=== PATIENT | female | born 1995 | race Caucasian/White ===

== ENCOUNTER 2024-04-21 16:08 | Outpatient (OUT) | payer OTHER, SELFPAY ==
[2024-04-21 16:41] LABS: BOX Test Date Sent UNITY; BOX Test Reference Lab UNITY
[2024-04-21 16:49] LABS: Basophils Absolute Auto 0.1 10^3/uL (0.0-0.1); Basophils Percent Auto 0.5 % (0.2-2.0); Eosinophils Absolute Auto 0.2 10^3/uL (0.0-0.7); Eosinophils Percent Auto 1.4 % (0.9-7.0); Hematocrit 38.9 % (36.0-48.0); Hemoglobin 13.6 g/dL (12.0-16.0); Immature Granulocytes Abs Auto 0.04 10^3/uL (0.00-0.03); Immature Granulocytes Pct Auto 0.3 % (0.0-0.5); Lymphocytes Absolute Auto 2.5 10^3/uL (1.2-3.8); Lymphocytes Percent Auto 21.6 % (20.5-60.0); Mean Corpuscular Hemoglobin 32.6 pg (26.7-34.0); Mean Corpuscular Volume 93.3 fL (81.0-99.0); Mean Platelet Volume 10.3 fL (9.5-13.5); Monocytes Absolute Auto 0.7 10^3/uL (0.3-0.8); Monocytes Percent Auto 5.9 % (1.7-12.0); Neutrophils Absolute Auto 8.2 10^3/uL (1.4-6.5); Neutrophils Percent Auto 70.3 % (43.0-75.0); Platelet Count 273 10^3/uL (150-450); Red Blood Count 4.17 10^6/uL (4.20-5.40); Red Cell Distribution Width 12.5 % (11.0-15.0); White Blood Count 11.7 10^3/uL (4.0-11.0)
[2024-04-21 17:02] LABS: Amphetamine Screen Urine NEGATIVE (NEGATIVE); Barbiturates Screen Urine NEGATIVE (NEGATIVE); Benzodiazepines Screen Urine NEGATIVE (NEGATIVE); Buprenorphine Screen Urine NEGATIVE (NEGATIVE); Cannabinoid Screen Urine NEGATIVE (NEGATIVE); Cocaine Screen Urine NEGATIVE (NEGATIVE); Methadone Screen Urine NEGATIVE (NEGATIVE); Methamphetamines Screen Urine NEGATIVE (NEGATIVE); Opiate Screen Urine NEGATIVE (NEGATIVE); Oxycodone Screen Urine NEGATIVE (NEGATIVE); Phencyclidine Screen Urine NEGATIVE (NEGATIVE); Tricyclic Antidepressant Urine NEGATIVE (NEGATIVE)
[2024-04-21 17:04] LABS: Estimated Average Glucose 108 mg/dL; Glycohemoglobin A1C 5.4 % (4.5-6.2)
[2024-04-23 08:07] LABS: HBsAg Screen Negative (Negative); HIV Ab/p24 Ag Screen Non Reactive (Non Reactive); Rapid Plasma Reagin, Quant Non Reactive titer (NonRea<1:1)
[2024-04-23 09:07] LABS: HCV Ab Non Reactive (Non Reactive)
== END 2024-04-21 16:09 | disposition home or self-care (01) ==
LOC: LAB 16:12
PROVIDERS: PCP Internal Medicine; Visit Provider Obstetrics & Gynecology
DX: Z34.01 Encounter for supervision of normal first pregnancy, first trimester (principal); Z36.0 Encounter for antenatal screening for chromosomal anomalies; N92.0 Excessive and frequent menstruation with regular cycle; N92.6 Irregular menstruation, unspecified
CPT/HCPCS: 36415; 80307; 83036; 85025; 86592; 86762; 86803; 86850; 86900; 86901; 87086; 87340; 87389

== ENCOUNTER 2024-05-23 20:39 | Outpatient (OUT) | payer OTHER, SELFPAY ==
--- NOTE | 2024-05-23 20:41 | US_ITS ---
[address] [address] Patient Name: BETTY ROJAS MRN: [id number]:[id number] date: 1995 Sex: F Assigned Patient Location: Current Patient Location: [place] Accession/Order Number: [id number] Exam Date: 05/23/2024 23:10 Report Date: 05/23/2024 23:13 At the request of: NEGAR GONZALEZ DO Procedure: US OB cervical length Cervical length ultrasound. Reason for exam: Spotting in . COMPARISON: None. TECHNIQUE: Transvaginal imaging of the cervix was obtained. FINDINGS: The cervix measures 3.47 cm without evidence of funneling. Complete placenta previa is noted. heart rate is noted at 145 bpm. US/US OB cervical length IMPRESSION: Cervix measures 3.47 cm without evidence of funneling. Complete placenta previa. Impression dictated by: Navjot Harmon Jr., D.O.05/23/2024 11:13 PM Dictation [facility] Electron[facility] authenticated by: [id number] Y Date: 05/23/2024 23:13
== END 2024-05-23 20:40 | disposition home or self-care (01) ==
LOC: US 20:39
PROVIDERS: PCP Internal Medicine; Visit Provider Obstetrics & Gynecology
DX: O26.892 Other specified pregnancy related conditions, second trimester (principal); Z3A.14 14 weeks gestation of pregnancy
CPT/HCPCS: 76817

== ENCOUNTER 2024-06-19 10:56 | Outpatient (OUT) | payer OTHER, SELFPAY ==
--- OUTSIDE RECORDS SUMMARY | 2024-06-19 11:14 | XMS_ITS | CCD ---
Author Organization [facility] Care Team Providers Care Frame Trimmer Name Role Phone LITO VELAZQUEZ Admitting Unavailable LITO VELAZQUEZ Attending Unavailable Josefina Kay Unavailable Robles Goldsmith DO Unavailable [phone] TANTIBHEDFEDE MARSHALL Referring Unav ailLito Li MD Primary Care Provider JAILENE HOWARD Referring Unavailable TANTIBHEDHYANGKAMARA, JULMARY Referring Unav ailable TANTIBHEDLIZAUL, JULCINDYUT Referring Unav ailable Lito Velazquez MD Primary Care Provider RUBY CANO Attending Unavailable LITO VELAZQUEZ Primary Care Unavailable GABRIEL BLACKWELL Attending Unavailable LITO VELAZQUEZ Primary Care Unavailable GALLAGHER, MIRTA Attending Unavailable FINA LIZAMA Referring Unavailable MINDZORA, ORTEGA Referring Unavailable VANESSA VO Attending Unavailable MINDZORAORTEGA Referring Unavailable MINDZORA, ORTEGA Referring Unavailable MINDZORA, ORTEGA Referring Unavailable TANTIBHEDHYANGKUL, JULMARY Attending Unav ailable MINDZORA, ORTEGA Attending Unavailable SELF Referring Unavailable TANTIBHEDHYANGKUL, JULMARY Attending Unav ailable MINDZORAORTEGA Referring Unavailable MINDZORA, ORTEGA Attending Unavailable MINDZORA, ORTEGA Referring Unavailable MINDZORA, ORTEGA Attending Unavailable MINDZORA, ORTEGA Referring Unavailable ATTARANDESHAWN Attending Unavailable ATTARAN, DESHAWN Referring Unavailable MINDZORA, ORTEGA Referring Unavailable GALLAGHER, MIRTA Referring Unavailable TANTIBHEDHYANGKUL, JULCINDYUT Attending Unav МАРИЯ Perez Attending Unavailable FINA LIZAMA Referring Unavailable MINDZORA, ORTEGA Attending Unavailable MINDZORA, ORTEGA Referring Unavailable MINDZORA, ORTEGA Referring Unavailable TANTIBHEDHYANGKUL, FEDE Referring Unav ailable TANTIBHEDHYANGKUL, FEDE Referring Unav ailable MINDKALI, ORTEGA Attending Unavailable ENG, ANNAMARIE Referring Unavailable ASPEN, МАРИЯ Referring Unavailable GALLAGHER, MIRTA Referring Unavailable ASPEN, МАРИЯ Referring Unavailable SARAVANAN AHUMADA Attending Unavailable ANDREW FERRER Attending Unavailable CESAR, LITO Ribeiro Attending Unavailable CESAR, LITO Ribeiro Referring Unavailable CESAR, LITO Ribeiro Referring Unavailable ROBLES GOLDSMITH Attending Unavailable Medications Current Medications Medication Drug Class(es) Dates Sig (Normalized) Sig (Original) cholecalciferol 0.05 mg oral tablet (12 sources) Vitamin D take 2 tablets by mouth in the morning cholecalciferol (Vitamin D-3) 50 MCG (1999 UT) tablet Take 2 tablets by mouth in the morning. Active fluticasone propionate 0.05 mg/actuat metered dose nasal spray (1 source) Corticosteroid Start: 03-08-2024 End: 06-06-2024 take 2 spray(s) nasal route once daily fluticasone (Flonase) 50 mcg/actuation nasal spray Indications: Chronic allergic rhinitis Administer 2 sprays into each nostril once daily. 48 mL 3 03/08/2024 06/06/2024 Active ammonium lactate 120 mg/ml topical cream (3 sources) Start: 05-23-2024 End: 05-23-2025 ammonium lactate (Amlactin) 12 % cream Indications: Xerosis cutis , Fissure in skin of both feet Apply topically Daily 140 g 3 05/23/2024 05/23/2025 Active 24 hr metFORMIN hydrochloride 500 mg extended release oral tablet (20 sources) Biguanide Start: 01-04-2023 End: 02-17-2024 take 3 tablets by mouth once daily at breakfast, then take 1 tablet by mouth once daily, then take 3 tablets by mouth once daily metFORMIN ER (GLUCOPHAGE XR) 500 mg 24 hr tablet Take 3 tablets by mouth daily with breakfast. Start with 1 tablet daily and slowly increase the dose up to 3 tablets daily. 90 tablet 11 02/17/2024 Active End: 03-27-2024 take 2 tablets by mouth once daily metFORMIN (Glucophage) 500 MG tablet Take 2 tablets by mouth Daily 03/27/2024 Discontinued Comment on above: Take 3 tablets by mo uth daily with breakfast. Start with 1 tablet daily and slowly increase the dose up to 3 tablets daily. PNV no.95/ferrous fum/folic ac ( ORAL) (20 sources) take 1 tablet by mouth once daily before mealtime PNV no.95/ferrous fum/folic ac ( ORAL) Take 1 tablet by mouth once daily. Active take 1 tablet by alverto th once daily before mealtime PNV no.95/ferrous fum/folic ac ( ORAL) Take 1 tablet by mouth once daily. 0 Active Comment on above: Take 1 tablet by alverto th once daily. MV-Min-Fe Fum-FA-DHA ( 1 PO) (10 sources) MV-Min- Fe Fum-FA-DHA ( 1 PO) Take by mouth Active progesterone 200 mg oral capsule (20 sources) Progesterone Start: 10-26-2023 End: 03-27-2024 progesterone micronized (PROMETRIUM) 200 mg capsule Use 1 capsule vaginally two times a day. 180 capsule 10/26/2023 Active Completed/Discontinued Medications Medication Drug Class(es) Dates Sig (Normalized) Sig (Original) chorionic gonadotropin 67487 unt/ml injectable solution (13 sources) Gonadotropin Start: 02-17-2024 End: 03-17-2024 inject 70999 [IU] by subcutaneous injection once chorionic gonadotropin (PREGNYL) 10,000 unit solr 10,000 Units as directed. Mix vials as directed per nursing in office. Administer subcutaneous. 1 Each 02/17/2024 03/17/2024 Discontinued () Start: 02-17-2024 chorionic gona dotropin (Pregnyl) 10,000 unit injection 10,000 Units. 02/17/2024 Active Start: 12-13-2023 End: 12-13-2023 Choriogonadotropin Pam,HumR ec (OVIDREL) 250 mcg/0.5 mL syrg Indications: Female infertility Inject 250 mcg subcutaneously one time only for 1 dose. 0.5 mL 1 12/13/2023 12/13/2023 Active Start: 11-15-2023 End: 03-27-2024 choriogonadotropin pam (Rohan drel) 250 MCG/0.5ML injection 11/15/2023 03/27/2024 Discontinued Start: 10-12-2023 End: 10-12-2023 Choriogonadotropin Pam,HumR ec (OVIDREL) 250 mcg/0.5 mL syrg Inject 250 mcg subcutaneously one time only for 1 dose. 0.5 mL 1 10/12/2023 10/12/2023 Active iv contrast (will be provided with radiology test) (1 source) Start: 06-16-2023 End: 06-16-2023 inject 1 dose intravenously once, then inject 1 dose intravenously once iv contrast (will be provided with radiology test) Inject 1 Each intravenously one time only for [address] Neck W IVCON No IV access, insert saline lock prior to the sedation, infusion, injection for imaging exam. Discontinue saline lock post exam. If Pt. has a central line or IVAD, may access for administration according to line specific nursing protocol. Once exam is complete flush line and de-access according to line specific nursing protocol in the CT contrast administration guidelines link. 1 Each 0 06/16/2023 06/16/2023 Comment on above: Inject 1 Each intravenously one time onl y for [address] Neck W IVCON No IV access, insert saline lock prior to the sedation, infusion, injection for imaging exam. Discontinue saline lock post exam. If Pt. has a central line or IVAD, may access for administration according to line specific nursing protocol. Once exam is complete flush line and de-access according to line specific nursing protocol in the CT contrast administration guidelines link. letrozole 2.5 mg oral tablet (20 sources) Aromatase Inhibitor Start: 02-28-2024 End: 03-13-2024 letrozole (FEMARA) 2.5 mg tablet Take 3 tablets by mouth once daily. Menstrual cycle day 3-7 15 tablet 2 02/28/2024 03/13/2024 Discontinued () Start: 03-30-2023 End: 02-28-2024 letrozole (FEMARA) 2.5 mg ta blet Take 2 tablets by mouth once daily for 5 days. Menstrual cycle day 3-7 10 tablet 2 02/15/2024 02/28/2024 Discontinued Start: 01-04-2023 End: 03-27-2024 take 1 tablet by mouth every other day letrozole (Femara) 2.5 MG chemo tablet Take 2.5 mg by mouth every other day. 01/04/2023 03/27/2024 Discontinued Start: 01-04-2023 letrozole (FEM STEWART) 2.5 mg tablet Take 1 tablet by mouth once daily for 5 days. Menstrual cycle day 3-7 5 tablet 3 01/04/2023 Active Comment on above: Take 1 tablet by alverto th once daily for 5 days. Menstrual cycle day 3-7 Take 2 tablets by mo uth once daily. Take day 3-7 of her cycle medroxyPROGESTERone acetate 10 mg oral tablet (20 sources) Progestin Start: 3 End: 4 medroxyPROGESTERone (Provera) 10 MG tablet 09/09/2023 03/27/2024 Discontinued Comment on above: Take 1 tablet by alverto th once daily for 10 days. Problems Active Problems Problem Classification Problem Date Documented Da te Episodic/Chronic Administrative/social admission (1 source) Treatment plan given; Translations: [Counseling, unspecified] 10-20-2023 Episodic Anxiety disorders (20 sources) Generalized anxiety disorder; Translations: [Generalized anxiety disorder] Onset: 3 12-29-2022 Chronic Asthma (1 source) Asthma; Translations: [Unspecified asthma, uncomplicated] Chronic Disorders of teeth and jaw (3 sources) Temporomandibular joint disorder; Translations: [Unspecified temporomandibular joint disorder, unspecified side] Onset: 4 03-08-2024 Episodic Female infertility (12 sources) Female infertility; Translations: [Female infertility, unspecified] Onset: 4 09-10-2023 Chronic Inflammatory diseases of female pelvic organs (1 source) Bacterial vaginosis; Translations: [Acute vaginitis] 02-15-2024 Episodic Malaise and fatigue (20 sources) Chronic fatigue syndrome; Translations: [Chronic fatigue syndrome] Onset: 3 Resolved: 3 12-29-2022 Chronic Menstrual disorders (20 sources) Menorrhagia; Translations: [Excessive and frequent menstruation with regular cycle] Onset: 3 12-29-2022 Chronic Mycoses (2 sources) Onychomycosis; Translations: [Tinea unguium] 05-23-2024 Episodic Nutritional deficiencies (12 sources) Vitamin D deficiency; Translations: [Vitamin D deficiency, unspecified] Onset: 3 01-12-2023 Chronic Open wounds of extremities (1 source) Puncture wound without foreign body of unspecified finger without damage to nail, initial encounter Episodic Other complications of (4 sources) Supervision of with history of infertility, first trimester; Translations: [Supervision of high-risk with history of infertility] Onset: 5 03-13-2024 Episodic Other complications of (2 sources) Spotting per vagina in ; Translations: [Spotting complicating , unspecified trimester] 05-22-2024 Episodic Other ear and sense organ disorders (1 source) Bilateral earache; Translations: [Otalgia, bilateral] 03-08-2024 Episodic Other ear and sense organ disorders (2 sources) Tinnitus, bilateral; Translations: [Tinnitus, bilateral] Onset: 4 Episodic Other ear and sense organ disorders (4 sources) Otalgia, bilateral; Translations: [Otalgia, bilateral] Onset: 4 Episodic Other endocrine disorders (20 sources) Polycystic ovary; Translations: [Polycystic ovarian syndrome] Onset: 3 12-29-2022 Chronic Other endocrine disorders (4 sources) Polycystic ovary syndrome; Translations: [Polycystic ovarian syndrome] 02-08-2023 Chronic Other endocrine disorders (1 source) Polycystic ovarian syndrome; Translations: [PCOS (polycystic ovarian syndrome)] Onset: 4 Chronic Other gastrointestinal disorders (1 source) Finding of abdominopelvic segment of trunk; Translations: [Intra-abdominal and pelvic swelling, mass and lump, unspecified site] 06-16-2023 Episodic Other liver diseases (12 sources) Steatosis of liver; Translations: [Fatty (change of) liver, not elsewhere classified] Onset: 4 07-13-2023 Chronic Other nervous system disorders (1 source) Chronic pain; Translations: [Other chronic pain] Chronic Other nutritional; endocrine; and metabolic disorders (20 sources) Obesity caused by energy imbalance; Translations: [Other obesity due to excess calories] Onset: 3 12-29-2022 Chronic Other nutritional; endocrine; and metabolic disorders (20 sources) Body mass index 40+ - severely obese; Translations: [Morbid (severe) obesity due to excess calories] Onset: 4 08-17-2023 Chronic Other nutritional; endocrine; and metabolic disorders (1 source) Morbid (severe) obesity due to excess calories; Translations: [Obesity, Class III, BMI 40-49.9 (morbid obesity) (HCC)] Onset: 4 Chronic Other and delivery including normal (7 sources) test positive; Translations: [Encounter for test, result positive] 03-16-2024 Episodic Other screening for suspected conditions (not mental disorders or infectious disease) (2 sources) Cancer cervix screening status; Translations: [Encounter for screening for malignant neoplasm of cervix] Onset: 4 02-15-2024 Episodic Other skin disorders (2 sources) Dystrophia unguium; Translations: [Nail dystrophy] 05-23-2024 Episodic Other skin disorders (2 sources) Asteatosis cutis; Translations: [Xerosis cutis] 05-23-2024 Episodic Other skin disorders (2 sources) Fissure in skin of bilateral feet; Translations: [Changes in skin texture] 05-23-2024 Episodic Other upper respiratory disease (20 sources) Seasonal allergy; Translations: [Other seasonal allergic rhinitis] Onset: 3 12-29-2022 Chronic Other upper respiratory disease (1 source) Allergic rhinitis; Translations: [Allergic rhinitis, unspecified] 03-08-2024 Chronic Other upper respiratory disease (2 sources) Allergic rhinitis, unspecified; Translations: [Allergic rhinitis, unspecified] Onset: 4 Chronic Other upper respiratory infections (3 sources) Posterior rhinorrhea; Translations: [Postnasal drip] Onset: 4 03-08-2024 Episodic Residual codes; unclassified (1 source) Family history of cancer; Translations: [Family history of malignant neoplasm, unspecified] 05-17-2023 Episodic Residual codes; unclassified (1 source) Family history of gene mutation; Translations: [Family history of carrier of genetic disease] 05-17-2023 Episodic Residual codes; unclassified (1 source) Family history of breast cancer; Translations: [Family history of malignant neoplasm of breast] 05-18-2023 Episodic Residual codes; unclassified (1 source) Family history of prostate cancer; Translations: [Family history of malignant neoplasm of prostate] 05-18-2023 Episodic Residual codes; unclassified (1 source) Gestation period, 9 weeks; Translations: [9 weeks gestation of ] 04-21-2024 Episodic Residual codes; unclassified (1 source) Gestation period, 13 weeks; Translations: [13 weeks gestation of ] 05-15-2024 Episodic Residual codes; unclassified (2 sources) Gestation period, 14 weeks; Translations: [14 weeks gestation of ] 05-22-2024 Episodic Unclassified (1 source) Infertility Onset: 4 Unclassified (7 sources) OB Reminders Onset: 5 04-30-2024 Urinary tract infections (1 source) Urinary tract infectious disease; Translations: [Urinary tract infection, site not specified] 05-15-2024 Episodic Viral infection (20 sources) Genital herpes simplex; Translations: [Herpesviral infection of urogenital system, unspecified] Onset: 3 12-29-2022 Chronic Past or Other Problems Problem Classification Problem Date Documented Da te Episodic/Chronic Contraceptive and procreative management (20 sources) Patient encounter status; Translations: [Encounter for fertility testing] Onset: 4 02-04-2023 Episodic Esophageal disorders (20 sources) Gastroesophageal reflux disease; Translations: [Gastro-esophageal reflux disease without esophagitis] Onset: 3 Resolved: 4 12-29-2022 Chronic Lymphadenitis (2 sources) Localized enlarged lymph nodes; Translations: [Localized enlarged lymph nodes] Onset: 4 06-16-2023 Episodic Other gastrointestinal disorders (1 source) Intra-abdominal and pelvic swelling, mass and lump, unspecified site; Translations: [Intra-abdominal and pelvic swelling, mass and lump, unspecified site] Onset: 4 Episodic Residual codes; unclassified (20 sources) Genetic mutation; Translations: [Genetic susceptibility to other disease] Onset: 4 06-16-2023 Episodic Residual codes; unclassified (1 source) Family history of malignant neoplasm of breast; Translations: [Family history of breast cancer] Onset: 4 Episodic Residual codes; unclassified (1 source) Family history of malignant neoplasm of prostate; Translations: [Family history of prostate cancer] Onset: 4 Episodic Residual codes; unclassified (1 source) Genetic susceptibility to other disease; 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 Ordering Physician: Saravanan Ahumada D.O. Date of Service: 05/23/24 Procedure(s): US OB cervical length Accession Number(s): [id number] cc: Saravanan Ahumada D.O.; LITO VELAZQUEZ [place] [address] Patient Name: EMILEE RIVAS MRN: [facility]:[id number] date: 1995 Sex: F Assigned Patient Location: Current Patient Location: US Accession/Order Number: [id number] Exam Date: 05/23/2024 23:10 Report Date: 05/23/2024 23:13 At the request of: SARAVANAN AHUMADA DO Procedure: US OB cervical length Cervical length ultrasound. Reason for exam: Spotting in . COMPARISON: None. TECHNIQUE: Transvaginal imaging of the cervix was obtained. FINDINGS: The cervix measures 3.47 cm without evidence of funneling. Complete placenta previa is noted. heart rate is noted at 145 bpm. US/US OB cervical length IMPRESSION: Cervix measures 3.47 cm without evidence of funneling. Complete placenta previa. Impression dictated by: Navjot Harmon Jr., D.O.05/23/2024 11:13 PM Dictation Location: [place] [address] Electronically authenticated by: [id number] Y Date: 05/23/2024 23:13 Dictated By: Navjot Harmon M.D. Signed By: 05/23/242314 DD/ 12 TD/TT: Pot Fluxer: [facility] Radiology, Radiologist, - 05/24/2024 [place] [address] Ultrasound Report Signed Patient: EMILEE RIVAS MR#: [id number] : 1995 Acct:[id number] Age/Sex: 29 / F ADM Date: 05/23/24 Loc: US Attending Dr: Saravanan Ahumada D.O. Ordering Physician: Saravanan Ahumada D.O. Date of Service: 05/23/24 Procedure(s): US OB cervical length Accession Number(s): [id number] cc: Saravanan Ahumada D.O.; LITO VELAZQUEZ [place] [address] Patient Name: EMILEE RIVAS MRN: [facility]:[id number] date: 1995 Sex: F Assigned Patient Location: US Current Patient Location: US Accession/Order Number: [id number] Exam Date: 05/23/2024 23:10 Report Date: 05/23/2024 23:13 At the request of: SARAVANAN AHUMADA DO Procedure: US OB cervical length Cervical length ultrasound. Reason for exam: Spotting in . COMPARISON: None. TECHNIQUE: Transvaginal imaging of the cervix was obtained. FINDINGS: The cervix measures 3.47 cm without evidence of funneling. Complete placenta previa is noted. heart rate is noted at 145 bpm. US/US OB cervical length IMPRESSION: Cervix measures 3.47 cm without evidence of funneling. Complete placenta previa. Impression dictated by: Navjot Harmon Jr., D.O.05/23/2024 11:13 PM Dictation Location: [place] [address] Electronically authenticated by: [id number] Y Date: 05/23/2024 23:13 Dictated By: Navjot Harmon M.D. Signed By: 05/23/242314 DD/ 12 TD/TT: Pot Fluxer: [facility] Radiology Study observation (narrative) [facility] US OB CERVICAL LENGTHOrdered By: Radiologist Radiology on 05-23-2024 [facility] Work Phone: Urinalysis macro (dipstick) panel (U)on 05-22-2024 Bilirubin, UA Negative Negative - 4(70) +++ mg/dL [facility] Blood, UA Negative Negative - 50 Jorge Luis/mcL [facility] Clarity, UA Clear [facility] Color, UA Yellow [facility] Glucose, UA Negative Negative - 1999(110) ++++ mg/dL [facility] Interpretation and review of laboratory results Normal [facility] Ketones, UA Negative Negative - 160(16) ++++ mg/dL [facility] Leukocytes, UA Negative Negative - 500+++ Flori/mcL [facility] Nitrite, UA Negative Negative - Positive [facility] pH, UA 7 5 - 9 [facility] Protein, UA Negative Negative - 1999(20) ++++ mg/dL [facility] Spec Grav, UA 1.015 1 - 1.03 [facility] Urobilinogen, UA 0.2 0.2 - 12 mg/dL [facility] Urinalysis macro (dipstick) panel (U)on 05-15-2024 Bilirubin, UA Negative Negative - 4(70) +++ mg/dL [facility] Blood, UA Negative Negative - 50 Jorge Luis/mcL [facility] Clarity, UA Clear [facility] Color, UA Yellow [facility] Glucose, UA Negative Negative - 1999(110) ++++ mg/dL [facility] Interpretation and review of laboratory results Normal [facility] Ketones, UA Negative Negative - 160(16) ++++ mg/dL [facility] Leukocytes, UA Negative Negative - 500+++ Flori/mcL [facility] Nitrite, UA Negative Negative - Positive [facility] pH, UA 6 5 - 9 [facility] Protein, UA Negative Negative - 1999(20) ++++ mg/dL [facility] Spec Grav, UA 1.01 1 - 1.03 [facility] Urobilinogen, UA 0.2 0.2 - 12 mg/dL [facility] BOX TESTon 04-21-2024 BOX TEST SENT OUT 04/21/24 [facility] BOX1 UNITY [facility] BOX2 [facility] HCG ( test) Ql (U)o n 04-21-2024 Interpretation and review of laboratory results Abnormal [facility] Preg Test, Ur Positive Negative [facility] US OB TRANSVAGINALon 025 US OB TRANSVAGINAL TITLE OF EXAM: OB Ultrasound: REASON FOR EXAM: Evaluate for size/dates. COMPARISON: None TECHNIQUE: Grayscale and M-mode Doppler imaging is performed. FINDINGS: Measurements: heart rate: 168 bpm Sac: 4.0 cm CRL: 2.2 cm GA for sonogram: 8.9 wk (08.1-09.6) Cervix Length: 3.7 cm KERA: 11/25/2024 Anatomy Observed: Gestational Sac: Visualized Yolk Sac: Visualized Pole: Visualized Cardiac Activity: Visualized 168 bpm Uterus: Normal Uterine Position: Retroverted, retroflexed Right Ovary: 3.7 x 3.8 x 2.2 cm Volume: 10.3 cc Normal Left Ovary: 4.9 x 2.7 x 2.9 cm Volume: 19.9 cc Corpus luteal Cervical Length: 3.7 cm IMPRESSION: Single viable intrauterine gestation with an estimated ultrasound age of 9 weeks 0 days. Dictated and transcribed 04/21/24/dpd This report has been electronically signed and approved by the interpreting radiologist. Normal Not Available Comment on above: Order Comment: US OB TRANSVAGINAL Patient's last menstrual period was 02/13/2024 (approximate). Urinalysis macro (dipstick) panel (U)on 04-21-2024 Bilirubin, UA Negative Negative - 4(70) +++ mg/dL [facility] Blood, UA Negative Negative - 50 Jorge Luis/mcL [facility] Clarity, UA Clear [facility] Color, UA Yellow [facility] Glucose, UA Negative Negative - 2000(110) ++++ mg/dL [facility] Interpretation and review of laboratory results Normal [facility] Ketones, UA Negative Negative - 160(16) ++++ mg/dL [facility] Leukocytes, UA Negative Negative - 500+++ Flori/mcL [facility] Nitrite, UA Negative Negative - Positive [facility] pH, UA 7 5 - 9 [facility] Protein, UA Negative Negative - 2000(20) ++++ mg/dL [facility] Spec Grav, UA 1.02 1 - 1.03 [facility] Urobilinogen, UA 0.2 0.2 - 12 mg/dL [facility] CNNURSEon 2024 CNNURSE Nurse Visit (REIAV) LISSA RIVAS ([id number]) 1995 F Date Time Provider Department 04/03/24 11:10 AM US TECH [facility] REJ REIAV During your visit today, we recorded the following information about you: Ortega Morrissey APRN.VENEER JOINTER HELPER 2024 4:38 PM Signed Lissa Rivas here today for a scan. This is her 1st scan. 0 0 0 History of ectopic: No History of SAB: No History of pelvic/abdominal surgeries: No LMP 02/12, fertility medications used this cycle: let 5mg, date of LH surge: LH + 03/03, TI Latest Ref Rng 01/04/2023 ABO A Rh(D) Negative Antibody Screen Negative Type+Scr Expiration 01/07/2023 23:59 Historical Ab Scr Status NEGATIVE Rubella IgG, Qual Positive Negative ! Varicella Zoster IgG, Qual Positive Positive hCG levels: Latest Ref Rng 03/13/2024 03/15/2024 03/17/2024 hCG Quantitative, Blood <5.0 mIU/mL 21.9 (H) 87.6 (H) 190.7 (H) Dating LMP on: 02/13/2024 GA by LMP 7 w + 1 d KERA by LMP: 11/19/2024 Ultrasound examination on: 2024 GA by U/S based upon: CRL GA by U/S 6 w + 3 d KERA by U/S: 11/24/2024 Assigned: based on ultrasound (CRL), selected on 2024 Assigned GA 6 w + 3 d Assigned KERA: 11/24/2024 FHR: 119 Plan Move on to OB Ortega Morrissey APRN.VENEER JOINTER HELPER 2024 4:34 PM Referring Provider: ORTEGA MORRISSEY [[id number]] Allergies As of Date: 2024 (No Known Allergies) Date Reviewed: 02/23/2024 Reviewed by: Paula Hester RN - Fully Assessed Visit Diagnosis:Supervision of with history of infertility, first trimester [O09.01] Order(s):OBSTETRIC ULTRASOUND [facility] [[id number]] Order #: [id number]. #:[id number] IEWPOINTQty: 1 Prescriptions as of 2024 - metFORMIN ER (GLUCOPHAGE XR) 500 mg 24 hr tablet Take 3 tablets by mouth daily with breakfast. Start with 1 tablet daily and slowly increase the dose up to 3 tablets daily. - progesterone micronized (PROMETRIUM) 200 mg capsule Use 1 capsule vaginally two times a day. - PNV no.95/ferrous fum/folic ac ( ORAL) Take 1 tablet by mouth once daily. Problem List As Of Date 2024 Noted Resolved Seasonal allergies [J30.2] 10/05/2022 Diagnosed: 12/29/2022 Polycystic ovaries [E28.2] 10/05/2022 Diagnosed: 12/29/2022 Obesity due to excess calories [E66.09] 10/05/2022 Diagnosed: 12/29/2022 Menorrhagia [N92.0] 10/05/2022 Diagnosed: 12/29/2022 GERD (gastroesophageal reflux disease) [K21.9] 10/05/2022 08/17/2023 Diagnosed: 12/29/2022 Genital herpes simplex [A60.00] 10/05/2022 Diagnosed: 12/29/2022 Generalized anxiety disorder [F41.1] 10/05/2022 Diagnosed: 12/29/2022 Chronic fatigue syndrome [G93.32] 10/05/2022 Diagnosed: 12/29/2022 Fertility testing [Z31.41] 07/29/2023 Obesity, Class III, BMI 40-49.9 (morbid obesity*08/17/2023 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 - An intrauterine gestational sac with a yolk sac and pole is present. - [place] rump length measurement is NOT consistent with the dating provided. Therefore, dating is now based on today?s crown rump length. The final EDC is 11/24/2024 - heart rate is within normal limits. Recommendations Refer to OB Method Transvaginal ultrasound examination Bruce . Number of embryos: 1 Dating LMP on: 02/13/2024 GA by LMP 7 w + 1 d KERA by LMP: 11/19/2024 Ultrasound examination on: 2024 GA by U/S based upon: CRL GA by U/S 6 w + 3 d KERA by U/S: 11/24/2024 Assigned: based on ultrasound (CRL), selected on 2024 Assigned GA 6 w + 3 d Assigned KERA: 11/24/2024 Assessment Gestational sac: visualized Location: intrauterine Yolk sac: visualized YS 2.8 mm <1% [place] Embryo: visualized CRL 5.9 mm 6w 3d 40% [place] Cardiac activity: present FHR 119 bpm Maternal Structures Uterus / Cervix Uterus: Visualized Uterus position: retroverted Uterus length 91 mm Uterus width 55 mm Uterus height 49 mm Uterus Vol 127.3 cm Cervix: Visualized Ovaries / Tubes / Adnexa Rt ovary: Visualized Rt ovary morphology: premenopausal normal follicular Rt ovary D1 40 mm Rt ovary D2 28 mm Rt ovary D3 20 mm Rt ovary Vol 12.1 cm Lt ovary: Visualized Lt ovary morphology: premenopausal normal follicular Lt ovary D1 53 mm Lt ovary D2 33 mm Lt ovary D3 36 mm Lt ovary Vol 32.5 cm Lt ovarian corpus luteum: hemorrhagic Lt ovarian corpus luteum D1 20.0 mm Lt ovarian corpus luteum D2 18.0 mm Lt ovarian corpus luteum D3 20.0 mm Lt ovarian cyst(s): Cysts identified Lt ovarian cyst D1 14 mm Lt ovarian cyst D2 16 mm Lt ovarian cyst D3 16 mm Lt ovarian cyst mean 15.3 mm Lt ovarian cyst vol 1.877 cm Lt ovarian cyst findings: Unilocular simple cyst Cul de Sac / Bladder / Kidneys / Other Cul de Sac: Visualized Performed By: Paula Peterson RDMS Read By: Jailene Howard M.D. MATERNAL MEDICINE [facility] Radiology Study observation (narrative) Theresa torres [facility] CONSULT PROGon 03-20-2024 CONSULT PROG HNO ID: [id number] Author: FEDE HAIRSTON MD Service: ? Author Type: Physician Type: Consult Progress Note Filed: 03/20/2024 08:24 Note Text: Date of Consult: 02/17/2024 Lissa Rivas is a 28 year old female presenting with the following history: HISTORY OF PRESENT ILLNESS: Lissa Rivas is a 28 year old female with Pt is here for follow up. No changes in history. She thinks she might have reaction from Ovidrel. August 18, 2023: Follow up PCOS, anovulatory infertility. S/p 3 cycles of Letrozole, cycle 34-42 days. Normal HSG. Partner had SA - told it was normal. Saw cancer genetic team 03/2023. Previous encounter on 04/07/2023: Pt is here for follow up. 1. PCOS - not respond to letrozole 2.5 mg. Dosed increase to 5 mg recently and she will get the prog done again on CD 21. 2. Elevated LFT - work up are all negative. Her PCP will repeat her LFT again in a few months. 3. Rubella non-immune. Patient aware. She will get the vaccine at the local pharmacy. She aware that she should not TTC for 30 days after taking the injection. 4. She has an appointment with cancer genetic team soon. 5. 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 Initial consult note on 01/04/2023: TTC January 2022. Has not used ocp since teenager. Was seen med endo for PCOS and placed on metformin. She self discontinue metformin last year and period never return. Using condoms prior Hx of PCOS diagnosed in 2019 through ultrasound and c/o abnormal hair growth, cycles usually q 3 months but has not had a cycle since Dec 2021 Has been spotting for 40+ days Using elle to track cycles, tried OPK for a few months but never has gotten a positive Treated for Chlamydia at age 16 healthy, non-smoker; no established pregnancies. Irregular period, hirsutism, ultrasound showed PCO appearing ovaries. Obstetric History T0 L0 SAB0 IAB0 Ectopic0 Multiple0 Live Births0 Fertility Evaluations and Treatments: Eval Checklist Results Date Comments HSG Normal 07/29/2023 Hysteroscopy Laparoscopy OPK (Ovulation Predictor Kit) Ovarian [place] AMH 10.91 High 01/04/2023 Saline Ultrasound Semen Analysis Normal 08/10/2023 Ultrasound Abnormal polycystic ovaries, otherwise normal 02/08/2023 Other (See comments) MENSTRUAL HISTORY: Menarche Age: 12 Length of Cycle: 34-42 days with Letrozole Irregular Days: 4-5 Menstrual Flow: Menstrual Symptoms: Patient's last menstrual period was 02/13/2024 (exact date). 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 Obesity due to excess calories PCOS (polycystic ovarian syndrome) Seasonal allergies PAST SURGICAL HISTORY Procedure Laterality Date EYE SURGERY HX 03/2020 [facility] FAMILY HISTORY Problem Relation Age of Onset Hypertension Mother Asthma Father Diabetes Father Heart disease Father Stroke Father Kidney Disease Father Arrhythmia Father Atrial fibrillation COPD Father Hypertension Father Hyperlipidemia Father Arrhythmia Half-sister Atrial fibrillation Breast Cancer Maternal Grandmother 40 - 49 Arthritis Paternal Grandmother Stroke Paternal Grandmother COPD Paternal Grandmother Arrhythmia Paternal Grandmother Atrial fibrillation Heart disease Paternal Grandmother Diabetes Paternal Grandmother Prostate Cancer Maternal Uncle 40 - 49 metastatic Lung Cancer Maternal Uncle 45 - 49 Breast Cancer Maternal great-grandmother Breast Cancer Maternal Aunt 45 ETHNICITY: White Assessment and Plan Lissa Rivas is a 28 year old female with PCOS here for follow up. Plan: PCOS lab. Restart metformin. Bar Use hCG trigger instead of ovidrel due to possible side effects. Also, she might need hCG during IVF. Possible increase letrozole to 7.5 pending this IUI cycle. Follow up in Apr. This visit was conducted as a virtual visit via zoom. I have communicated my name and active licensure. The patient's identity and physical location were verified at the time of this visit. Either the patient or their legal direct marketing representative has been informed of the risks and benefits of -- and alternatives to -- treatment through a remote evaluation and consents to proceed with the evaluation remotely. I spent a total of 30 minutes on the date of the service which included preparing to see the patient, [id number] patient care, counseling and educating the patient/family/caregi deborah, ordering medications, tests, or procedures, communicating results to the patient/family/caregi deborah, and care coordination (not separately reported). MD Kim Branch MD Normal [facility] B-HCG SerPl-aCncon 4 HCG.beta subunit Qn 190.7 m[IU]/mL High <5.0 C [facility] Comment on above: Order Comment: Speci men Type: BLOOD SPECIMENOrdering Facility: [facility] Address: [address] [place] [address] Result Comment: LUCA TITATIVE HCG NORMAL RANGES Weeks of Gestation (Weeks Since LMP) 3 Weeks (5.8-71.2 mIU/mL) 4 Weeks (9.5-750 mIU/mL) 5 Weeks (217-7138 mIU/mL) 6 Weeks (158-84088 mIU/mL) 7 Weeks (3697-804120 mIU/mL) 8 Weeks (81375-406657 mIU/mL) 9 Weeks (36307-973572 mIU/mL) 10 Weeks (09268-995819 mIU/mL) 12 Weeks (83246-923711 mIU/mL) Referenced to 4th IS of [facility] Performed By: #### 2 1198-7 ####[facility]CL[facility] [id number] [facility] [id number] [place] [address] [place] B-HCG SerPl-aCncon 4 HCG.beta subunit Qn 87.6 m[IU]/mL High <5.0 [facility] Comment on above: Order Comment: Speci men Type: BLOOD SPECIMENOrdering Facility: [facility] Address: [address] [place] [address] Result Comment: LUCA TITATIVE HCG NORMAL RANGES Weeks of Gestation (Weeks Since LMP) 3 Weeks (5.8-71.2 mIU/mL) 4 Weeks (9.5-750 mIU/mL) 5 Weeks (217-7138 mIU/mL) 6 Weeks (158-31742 mIU/mL) 7 Weeks (3697-148512 mIU/mL) 8 Weeks (02418-637806 mIU/mL) 9 Weeks (25169-191250 mIU/mL) 10 Weeks (70266-489343 mIU/mL) 12 Weeks (80251-142902 mIU/mL) Referenced to 4th IS of [facility] Performed By: #### 2 1198-7 ####[facility] LABIA [id number] [place] [address] [place] B-HCG SerPl-aCncon 4 HCG.beta subunit Qn 21.9 m[IU]/mL High <5.0 Cl [facility] Comment on above: Order Comment: Speci men Type: BLOOD SPECIMENOrdering Facility: [facility] Address: [address] [place] [address] Result Comment: LUCA TITATIVE HCG NORMAL RANGES Weeks of Gestation (Weeks Since LMP) 3 Weeks (5.8-71.2 mIU/mL) 4 Weeks (9.5-750 mIU/mL) 5 Weeks (217-7138 mIU/mL) 6 Weeks (158-64566 mIU/mL) 7 Weeks (3697-837789 mIU/mL) 8 Weeks (23736-249339 mIU/mL) 9 Weeks (82763-978006 mIU/mL) 10 Weeks (93975-843653 mIU/mL) 12 Weeks (63068-530635 mIU/mL) Referenced to 4th IS of [facility] Performed By: #### 2 1198-7 ####[facility] LABIA [id number] [address] [place] Alexandra 03-13-2024 JORDANN Telephone (REIBD) LISSA RIVAS ([id number]) 1995 F Date Time Provider Department 03/13/24 FEDE HAIRSTON During your visit today, we recorded the following information about you: Ayanna Wise 03/13/2024 11:56 AM Signed Patient states she skipped this month and has +hpt, please follow up with patient. Ortega Morrissey APRN.VENEER JOINTER HELPER 03/13/2024 1:37 PM Signed Patient calls with positive urine test. 0 0 0 History of ectopic: No History of SAB: No History of pelvic/abdominal surgeries: No LMP 02/12, fertility medications used this cycle: let 5mg, date of LH surge: unsure, TI Latest Ref Rng 01/04/2023 ABO A Rh(D) Negative Antibody Screen Negative Type+Scr Expiration 01/07/2023 23:59 Historical Ab Scr Status NEGATIVE Rubella IgG, Qual Positive Negative ! Varicella Zoster IgG, Qual Positive Positive Current medications: Current Outpatient Medications Medication Sig letrozole (FEMARA) 2.5 mg tablet Take 3 tablets by mouth once daily. Menstrual cycle day 3-7 metFORMIN ER (GLUCOPHAGE XR) 500 mg 24 hr tablet Take 3 tablets by mouth daily with breakfast. Start with 1 tablet daily and slowly increase the dose up to 3 tablets daily. chorionic gonadotropin (PREGNYL) 10,000 unit solr 10,000 Units as directed. Mix vials as directed per nursing in office. Administer subcutaneous. Syringe with Needle, Disp, (SYRINGE 3CC/20GX1 ) 3 mL 20 gauge x 1 To be used to mix, draw up and inject HCG trigger Needle, Disp, 27 G (BD DISPOSABLE NEEDLES) 27 gauge x 1/2 ndle To be used to inject HCG trigger progesterone micronized (PROMETRIUM) 200 mg capsule Use 1 capsule vaginally two times a day. PNV no.95/ferrous fum/folic ac ( ORAL) Take 1 tablet by mouth once daily. No current facility-administered medications for this visit. Advised normal symptoms of and s/s of need for follow up. Labs ordered: HCG x2 FYI Dr. Bill Morrissey APRN.VENEER JOINTER HELPER March 13, 2024 1:37 PM Allergies As of Date: 03/13/2024 (No Known Allergies) Date Reviewed: 02/23/2024 Reviewed by: Paula Hester RN - Fully Assessed Reason for Visit: +hpt today/lmp 02/12 skipped treatment this month [Other] Primary Visit Diagnosis:Supervision of with history of infertility, first trimester [O09.01] Other Visit Diagnosis: examination or test, unconfirmed [Z32.00] Order(s):HCG QUANTITATIVE [SQHCGQT] Order #: [id number] STANDING Prescriptions as of 03/13/2024 - metFORMIN ER (GLUCOPHAGE XR) 500 mg 24 hr tablet Take 3 tablets by mouth daily with breakfast. Start with 1 tablet daily and slowly increase the dose up to 3 tablets daily. - chorionic gonadotropin (PREGNYL) 10,000 unit solr 10,000 Units as directed. Mix vials as directed per nursing in office. Administer subcutaneous. - Syringe with Needle, Disp, (SYRINGE 3CC/20GX1 ) 3 mL 20 gauge x 1 To be used to mix, draw up and inject HCG trigger - Needle, Disp, 27 G (BD DISPOSABLE NEEDLES) 27 gauge x 1/2 ndle To be used to inject HCG trigger - progesterone micronized (PROMETRIUM) 200 mg capsule Use 1 capsule vaginally two times a day. - PNV no.95/ferrous fum/folic ac ( ORAL) Take 1 tablet by mouth once daily. Problem List As Of Date 03/13/2024 Noted Resolved Seasonal allergies [J30.2] 10/05/2022 Diagnosed: 12/29/2022 Polycystic ovaries [E28.2] 10/05/2022 Diagnosed: 12/29/2022 Obesity due to excess calories [E66.09] 10/05/2022 Diagnosed: 12/29/2022 Menorrhagia [N92.0] 10/05/2022 Diagnosed: 12/29/2022 GERD (gastroesophageal reflux disease) [K21.9] 10/05/2022 08/17/2023 Diagnosed: 12/29/2022 Genital herpes simplex [A60.00] 10/05/2022 Diagnosed: 12/29/2022 Generalized anxiety disorder [F41.1] 10/05/2022 Diagnosed: 12/29/2022 Chronic fatigue syndrome [G93.32] 10/05/2022 Diagnosed: 12/29/2022 Fertility testing [Z31.41] 07/29/2023 Obesity, Class III, BMI 40-49.9 (morbid obesity*08/17/2023 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 Menstrual cycle day 3-7 Encounter Status:Closed by ORTEGA MORRISSEY on 03/13/24 Normal [facility] Progest SerPl-mCncon 024 Progesterone [Mass/Vol] 17.8 ng/mL Normal See comment [facility] Comment on above: Order Comment: Speci men Type: BLOOD SPECIMENOrdering Facility: [facility] Address: [address] [place] [address] Result Comment: Mens trual Cycle Progesterone Reference Ranges: Follicular: <1.0 ng/mL Ovulation: <12.1 ng/mL Luteal: 1.8 to 23.9 ng/mL. Progesterone Reference Ranges vary by gestational period: First Trimester: 11.0 to 44.3 ng/mL Second Trimester: 25.4 to 83.3 ng/mL Third Trimester: 58.7 to 214 ng/mL Post menopausal Progesterone: <0.5 ng/mL Reference: 1. Progesterone (Progesterone III) [package insert V 1.0 Cam[place]onian]. [facility], [place], [place]. December 2014. Performed By: #### 2 839-9 ####[facility] LABCLIA [id number] [address] [place] Alexandra 02-28-2024 CNPN Telephone (REIBD) LISSA RIVAS ([id number]) 1995 F Date Time Provider Department 02/28/24 FEDE HAIRSTON During your visit today, we recorded the following information about you: Joanna Garces 02/28/2024 8:23 AM Signed Pt is not financially clear yet should she still schedule it after she pays Ortega Morrissey APRN.JORDAN 02/28/2024 11:54 AM Signed Spoke with Thao, Plan to continue with OPK at home and timed intercourse. Will not proceed with IUI this cycle. Would like to confirm ovulation with progesterone if she gets a +OPK. Otherwise, will plan for increased letrozole dose with next cycle/monitoring and IUI. The following approved medication requests have been transmitted electronically. Requested Prescriptions Signed Prescriptions Disp Refills letrozole (FEMARA) 2.5 mg tablet 15 tablet 2 Sig: Take 3 tablets by mouth once daily. Menstrual cycle day 3-7 Authorizing Provider: ORTEGA MORRISSEY APRN.CNP February 28, 2024 11:54 AM Allergies As of Date: 02/28/2024 (No Known Allergies) Date Reviewed: 02/23/2024 Reviewed by: Paula Hester, RN - Fully Assessed Reason for Visit: ortega pt is not cleared for us should she still have it do [Other] Primary Visit Diagnosis:Female infertility [N97.9] Order(s):PROGESTERONE [SQPROG] Order #: [id number] FUTURE letrozole (FEMARA) 2.5 mg tabletTake 3 tablets by mouth once daily. Menstrual cycle day 3-7Disp: 15 tabletRfl: 2 Prescriptions as of 02/28/2024 - letrozole (FEMARA) 2.5 mg tablet Take 3 tablets by mouth once daily. Menstrual cycle day 3-7 - metFORMIN ER (GLUCOPHAGE XR) 500 mg 24 hr tablet Take 3 tablets by mouth daily with breakfast. Start with 1 tablet daily and slowly increase the dose up to 3 tablets daily. - chorionic gonadotropin (PREGNYL) 10,000 unit solr 10,000 Units as directed. Mix vials as directed per nursing in office. Administer subcutaneous. - Syringe with Needle, Disp, (SYRINGE 3CC/20GX1 ) 3 mL 20 gauge x 1 To be used to mix, draw up and inject HCG trigger - Needle, Disp, 27 G (BD DISPOSABLE NEEDLES) 27 gauge x 1/2 ndle To be used to inject HCG trigger - progesterone micronized (PROMETRIUM) 200 mg capsule Use 1 capsule vaginally two times a day. - PNV no.95/ferrous fum/folic ac ( ORAL) Take 1 tablet by mouth once daily. Problem List As Of Date 02/28/2024 Noted Resolved Seasonal allergies [J30.2] 10/05/2022 Diagnosed: 12/29/2022 Polycystic ovaries [E28.2] 10/05/2022 Diagnosed: 12/29/2022 Obesity due to excess calories [E66.09] 10/05/2022 Diagnosed: 12/29/2022 Menorrhagia [N92.0] 10/05/2022 Diagnosed: 12/29/2022 GERD (gastroesophageal reflux disease) [K21.9] 10/05/2022 08/17/2023 Diagnosed: 12/29/2022 Genital herpes simplex [A60.00] 10/05/2022 Diagnosed: 12/29/2022 Generalized anxiety disorder [F41.1] 10/05/2022 Diagnosed: 12/29/2022 Chronic fatigue syndrome [G93.32] 10/05/2022 Diagnosed: 12/29/2022 Fertility testing [Z31.41] 07/29/2023 Obesity, Class III, BMI 40-49.9 (morbid obesity*08/17/2023 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 Menstrual cycle day 3-7 Medications Discontinued During This Encounter Prescriptions - letrozole (FEMARA) 2.5 mg tablet (Discontinued) Take 2 tablets by mouth once daily for 5 days. Menstrual cycle day 3-7 Encounter Status:Closed by ORTEGA MORRISSEY on 02/28/24 Normal [facility] 25(OH)D3 Yolandal-Avni 2023 25-hydroxyvitamin D3 [Mass/Vol] 49.3 ng/mL Normal 31.0-80.0 [facility] Comment on above: Order Comment: Speci men Type: BLOOD SPECIMEN [facility] Address: [address] [place] [address] Result Comment: Clas sification of 25 [place] Vitamin D status: Deficiency/Insufficiency: < or = 30 ng/ml. Sufficiency/Optimal Levels: 31-80 ng/mL Toxicity: > 100 ng/mL. Test performed by chemiluminescent immunoassay. Performed By: #### 1 989-3 #### [facility] CLIA [id number] [address] [place] [address] [place] [address] [place] 25-hydroxyvitamin D3 [Mass/V ol]on 02-23-2024 Interpretation and review of laboratory results Normal [facility] The reference range interval was based on an analysis of samples from healthy adults and may not pertain to children from 0-18 years old. [facility] CBC panel Auto (Bld)on 02-22 Erythrocyte distribution width (RBC) [Ratio] 12.4 % 11.5 - 15.0 % [facility] Hematocrit (Bld) [Volume fraction] 40.6 % 36.0 - 46.0 % [facility] Hemoglobin (Bld) [Mass/Vol] 13.5 g/dL 11.5 - 15.5 g/dL [facility] Interpretation and review of laboratory results Normal [facility] MCH (RBC) [Entitic mass] 31.1 pg 26.0 - 34.0 pg [facility] MCHC (RBC) [Mass/Vol] 33.3 g/dL 30.5 - 36.0 g/dL [facility] MCV (RBC) [Entitic vol] 93.5 fL 80.0 - 100.0 fL [facility] Nucleated RBC (Bld) [#/Vol] NINF [facility] Platelet mean volume (Bld) [Entitic vol] 10.6 fL 9.0 - 12.7 fL [facility] Platelets (Bld) [#/Vol] 261 10*3/uL [facility] RBC (Bld) [#/Vol] 4.34 10*6/uL 3.90 - 5.2 0 m/uL [facility] WBC (Bld) [#/Vol] 8.81 10*3/uL [facility] Erythrocyte distribution width (RBC) [Ratio] 12.4 % Normal 11.5-15.0 [facility] Comment on above: Order Comment: Speci men Type: BLOOD SPECIMEN [facility] Address: [address] [place] [address] Performed By: #### 5 8410-2 #### [facility] CLIA [id number] [address] [place], [place] [id number] [place] [address] [place] Hematocrit (Bld) [Volume fraction] 40.6 % Normal 36.0-46.0 [facility] Comment on above: Order Comment: Speci men Type: BLOOD SPECIMEN [facility] Address: [address] [place] [address] Performed By: #### 5 8410-2 #### [facility] IA [id number] [address] [place] [address] [place] Hemoglobin (Bld) [Mass/Vol] 13.5 g/dL Normal 11.5-15.5 [facility] Comment on above: Order Comment: Speci men Type: BLOOD SPECIMEN [facility] Address: [address] [place] [address] Performed By: #### 5 8410-2 #### [facility] IA [id number] [address] [place] [address] [place] MCH (RBC) [Entitic mass] 31.1 pg Normal 26.0-34.0 [facility] Comment on above: Order Comment: Speci men Type: BLOOD SPECIMEN [facility] Address: [address] [place] [address] Performed By: #### 5 8410-2 #### [facility] CLIA [id number] [address] [place] [address] [place] MCHC (RBC) [Mass/Vol] 33.3 g/dL Normal 30.5-36.0 [facility] Comment on above: Order Comment: Speci men Type: BLOOD SPECIMEN [facility] Address: [address] [place] [address] Performed By: #### 5 8410-2 #### [facility] CLIA [id number] [address] [place] [address] [place] MCV (RBC) [Entitic vol] 93.5 fL Normal 80.0-100.0 [facility] Comment on above: Order Comment: Speci men Type: BLOOD SPECIMEN [facility] Address: [address] [place] [address] Performed By: #### 5 8410-2 #### [facility] CLIA [id number] [address] [place] [address] [place] Nucleated RBC (Bld) [#/Vol] 10*3/uL Normal <0.01 [facility] Comment on above: Order Comment: Speci men Type: BLOOD SPECIMEN Ordering Facility: [facility] Address: [address] [place] [address] Performed By: #### 5 8410-2 #### [facility] CLIA [id number] [place] [address] [place] Platelet mean volume (Bld) [Entitic vol] 10.6 fL Normal 9.0-12.7 [facility] Comment on above: Order Comment: Speci men Type: BLOOD SPECIMEN Ordering Facility: [facility] Address: [address] [place] [address] Performed By: #### 5 8410-2 #### [facility] CLIA [id number] [address] [place] [address] [place] Platelets (Bld) [#/Vol] 261 10*3/uL Normal 150-400 [facility] Comment on above: Order Comment: Speci men Type: BLOOD SPECIMEN Ordering Facility: [facility] Address: [address] [place] [address] Performed By: #### 5 8410-2 #### [facility] CLIA [id number] [address] [place] [address] [place] RBC (Bld) [#/Vol] 4.34 10*6/uL Normal 3.90-5.20 [facility] Comment on above: Order Comment: Speci men Type: BLOOD SPECIMEN Ordering Facility: [facility] Address: [address] [place] [address] Performed By: #### 5 8410-2 #### [facility] CLIA [id number] [address] [facility] [address] [place] WBC (Bld) [#/Vol] 8.81 10*3/uL Normal 3.70-11.00 [facility] Comment on above: Order Comment: Speci men Type: BLOOD SPECIMEN Ordering Facility: [facility] Address: [address] [place] [address] Performed By: #### 5 8410-2 #### [facility] CLIA [id number] [address] [place] [address] [facility] CNNURSEon 02-23-2024 CNNURSE Nurse Visit (ASHLYNV) LISSA RIVAS ([id number]) 1995 F Date Time Provider Department 02/23/24 7:00 AM VANESSA VO During your visit today, we recorded the following information about you: Paula Hester RN 02/23/2024 7:46 AM Signed The patient is here today for follicular ultrasound and blood work. The patient reports no problems or complaints. Ultrasound and blood will be reviewed by the physician, the flow sheet will be updated and instructions will be communicated to the patient. Paula Hester RN February 23, 2024 7:46 AM Ortega Morrissey APRN.CNP 02/23/2024 1:56 PM Signed Lissa Rivas is here today for a midcycle scan. Lead follicle: 11 Plan: repeat scan 02/24 Ortega Morrissey APRN.CNP February 23, 2024 1:54 PM Please schedule the patient for the following- Location: D Provider: Nurse Visit type: midcycle Reason for visit/appointment notes: midcycle Date: 02/24 Time (requested): 0730 If slot is full, please schedule the closest open slot. Call to patient needed: no Ortega Morrissey APRN.CNP 02/23/2024 4:03 PM Signed Addended by: ORTEGA MORRISSEY on: 02/23/2024 04:03 PM Modules accepted: Orders Referring Provider: ORTEGA MORRISSEY [[id number]] Allergies As of Date: 02/23/2024 (No Known Allergies) Date Reviewed: 02/23/2024 Reviewed by: Paula Hester, ARIC - Fully Assessed Reason for Visit: Infertility [285] Visit Diagnosis:Female infertility [N97.9] Order(s):FOLLICULAR US [facility] [[id number]] Order #: [id number]. #:[id number] IEWPOINTQty: 1 FOLLICULAR [facility] [] Order #: [id number]: 1 FUTURE Prescriptions as of 02/23/2024 - metFORMIN ER (GLUCOPHAGE XR) 500 mg 24 hr tablet Take 3 tablets by mouth daily with breakfast. Start with 1 tablet daily and slowly increase the dose up to 3 tablets daily. - chorionic gonadotropin (PREGNYL) 10,000 unit solr 10,000 Units as directed. Mix vials as directed per nursing in office. Administer subcutaneous. - Syringe with Needle, Disp, (SYRINGE 3CC/20GX1 ) 3 mL 20 gauge x 1 To be used to mix, draw up and inject HCG trigger - Needle, Disp, 27 G (BD DISPOSABLE NEEDLES) 27 gauge x 1/2 ndle To be used to inject HCG trigger - letrozole (FEMARA) 2.5 mg tablet Take 2 tablets by mouth once daily for 5 days. Menstrual cycle day 3-7 - progesterone micronized (PROMETRIUM) 200 mg capsule Use 1 capsule vaginally two times a day. - PNV no.95/ferrous fum/folic ac ( ORAL) Take 1 tablet by mouth once daily. Problem List As Of Date 02/23/2024 Noted Resolved Seasonal allergies [J30.2] 10/05/2022 Diagnosed: 12/29/2022 Polycystic ovaries [E28.2] 10/05/2022 Diagnosed: 12/29/2022 Obesity due to excess calories [E66.09] 10/05/2022 Diagnosed: 12/29/2022 Menorrhagia [N92.0] 10/05/2022 Diagnosed: 12/29/2022 GERD (gastroesophageal reflux disease) [K21.9] 10/05/2022 08/17/2023 Diagnosed: 12/29/2022 Genital herpes simplex [A60.00] 10/05/2022 Diagnosed: 12/29/2022 Generalized anxiety disorder [F41.1] 10/05/2022 Diagnosed: 12/29/2022 Chronic fatigue syndrome [G93.32] 10/05/2022 Diagnosed: 12/29/2022 Fertility testing [Z31.41] 07/29/2023 Obesity, Class III, BMI 40-49.9 (morbid obesity*08/17/2023 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] 08/17/2023 Encounter Status:Closed by VANESSA VO on 02/23/24 Normal [facility] Cobalamin (Vitamin B12) [Mas s/Vol]on 02-23-2024 Interpretation and review of laboratory results Normal [facility] Comprehensive metabolic 2000 panelon 02-23-2024 Albumin [Mass/Vol] 4.5 g/dL 3.9 - 4.9 g/dL [facility] ALP [Catalytic activity/Vol] 65 U/L 34 - 123 U/L [facility] ALT [Catalytic activity/Vol] 41 U/L High 7 - 38 U/L [facility] Anion gap [Moles/Vol] 12 mmol/L 8 - 15 mmol/L [facility] AST [Catalytic activity/Vol] 21 U/L 13 - 35 U/L [facility] Bilirubin [Mass/Vol] 0.2 mg/dL 0.2 - 1.3 mg/dL [facility] Calcium [Mass/Vol] 9.3 mg/dL 8.5 - 10. 2 mg/dL [facility] Chloride [Moles/Vol] 105 mmol/L 98 - 107 mmol/L [facility] CO2 [Moles/Vol] 24 mmol/L 22 - 30 mmol/L [facility] Creatinine [Mass/Vol] 0.78 mg/dL 0.58 - 0.96 mg/dL [facility] GFR/1.73 sq M.predicted among non-blacks MDRD (S/P/Bld) [Vol rate/Area] 106 mL/min/{1.73_m2} - PINF [facility] Comment on above: Estimated Glomerular Filtration Rate (eGFR) is calculated using the 2020 CKD-EPI creatinine equation. This equation utilizes serum creatinine, sex, and age as parameters. The creatinine assay has traceable calibration to isotope dilution-mass spectrometry. Refer to KDIGO guidelines for clinical interpretation. In patients with unstable renal function, e.g. those with acute kidney injury, the eGFR may not accurately reflect actual GFR. Glucose [Mass/Vol] 98 mg/dL 74 - 99 mg/dL [facility] Comment on above: The [place] Diabete s Association (ADA) provides guidance for cutoff values for fasting glucose and random glucose. The ADA defines fasting as no caloric intake for at least 8 hours. Fasting plasma glucose results between 100 to 125 mg/dL indicate increased risk for diabetes (prediabetes). Fasting plasma glucose results greater than or equal to 126 mg/dL meet the criteria for diagnosis of diabetes. In the absence of unequivocal hyperglycemia, results should be confirmed by repeat testing. In a patient with classic symptoms of hyperglycemia or hyperglycemic crisis, random plasma glucose results greater than or equal to 200 mg/dL meet the criteria for diagnosis of diabetes. Reference: Standards of Medical Care in Diabetes 2016, [place] Diabetes Association. Diabetes Care. 2016.39(Suppl 1). Interpretation and review of laboratory results Abnormal [facility] Potassium [Moles/Vol] 4.3 mmol/L 3.7 - 5.1 mmol/L [facility] Protein [Mass/Vol] 7.3 g/dL 6.3 - 8.0 g/dL [facility] Sodium [Moles/Vol] 141 mmol/L 136 - 144 mmol/L [facility] Urea nitrogen [Mass/Vol] 11 mg/dL 7 - 21 mg/dL [facility] Albumin [Mass/Vol] 4.5 g/dL Normal 3.9-4.9 [facility] Comment on above: Order Comment: Speci men Type: BLOOD SPECIMEN Ordering Facility: [facility] Address: [address] [place] [address] Performed By: #### 2 4323-8 #### [facility] CLIA [id number] [facility] [address] [place] ALP [Catalytic activity/Vol] 65 U/L Normal 34-123 [facility] Comment on above: Order Comment: Speci men Type: BLOOD SPECIMEN Ordering Facility: [facility] Address: [address] [place] [address] Performed By: #### 2 4323-8 #### [facility] CLIA [id number] [address] [place] [address] [place] ALT [Catalytic activity/Vol] 41 U/L High 7-38 [facility] Comment on above: Order Comment: Speci men Type: BLOOD SPECIMEN Ordering Facility: [facility] Address: [address] [place] [address] Performed By: #### 2 4323-8 #### [facility] IA [id number] [address] [place], [place] [address] [place] [address] [place] Anion gap [Moles/Vol] 12 mmol/L Normal 8-15 [facility] Comment on above: Order Comment: Speci men Type: BLOOD SPECIMEN Ordering Facility: [facility] Address: [address] [place] [address] Performed By: #### 2 4323-8 #### [facility] CLIA [id number] [address] [place], [place] [address] [place] [address] [place] AST [Catalytic activity/Vol] 21 U/L Normal 13-35 [facility] Comment on above: Order Comment: Speci men Type: BLOOD SPECIMEN Ordering Facility: [facility] Address: [address] [place] [address] Performed By: #### 2 4323-8 #### [facility] CLIA [id number] [address] [place] [address] [place] Bilirubin [Mass/Vol] 0.2 mg/dL Normal 0.2-1.3 [facility] Comment on above: Order Comment: Speci men Type: BLOOD SPECIMEN Ordering Facility: [facility] Address: [address] [place] [address] Performed By: #### 2 4323-8 #### [facility] CLIA [id number] [address] [place] [address] [place] Calcium [Mass/Vol] 9.3 mg/dL Normal 8.5-10.2 [facility] Comment on above: Order Comment: Speci men Type: BLOOD SPECIMEN Ordering Facility: [facility] Address: [address] [place] [address] Performed By: #### 2 4323-8 #### [facility] CLIA [id number] [address] [place] [address] [place] Chloride [Moles/Vol] 105 mmol/L Normal 98-107 [facility] Comment on above: Order Comment: Speci men Type: BLOOD SPECIMEN Ordering Facility: [facility] Address: [address] [place] [address] Performed By: #### 2 4323-8 #### [facility] CLIA [id number] [address] [place] [address] [place] CO2 [Moles/Vol] 24 mmol/L Normal 22-30 [facility] Comment on above: Order Comment: Speci men Type: BLOOD SPECIMEN Ordering Facility: [facility] Address: [address] [place] [address] Performed By: #### 2 4323-8 #### [facility] CLIA [id number] [address] [place] [id number] [place] Creatinine [Mass/Vol] 0.78 mg/dL Normal 0.58-0.96 [facility] Comment on above: Order Comment: Speci men Type: BLOOD SPECIMEN Ordering Facility: [facility] Address: [address] [place] [address] Performed By: #### 2 4323-8 #### [facility] CLIA [id number] [address] [place] [address] [place] Creatinine and Glomerular filtration rate.predicted panel (S/P/Bld) 106 mL/min/1.73m??? Normal >=60 [facility] Comment on above: Order Comment: Speci men Type: BLOOD SPECIMEN Ordering Facility: [facility] Address: [address] [place] [address] Result Comment: Estefanía mated Glomerular Filtration Rate (eGFR) is calculated using the 2020 CKD-EPI creatinine equation. This equation utilizes serum creatinine, sex, and age as parameters. The creatinine assay has traceable calibration to isotope dilution-mass spectrometry. Refer to KDIGO guidelines for clinical interpretation. In patients with unstable renal function, e.g. those with acute kidney injury, the eGFR may not accurately reflect actual GFR. Performed By: #### 2 4323-8 #### [facility] CLIA [id number] [address] [place] [address] [place] Glucose [Mass/Vol] 98 mg/dL Normal 74-99 [facility] Comment on above: Order Comment: Jarek leger Type: BLOOD SPECIMEN Ordering Facility: [facility] Address: [address] [place] [id number] Result Comment: The [place] Diabetes Association (ADA) provides guidance for cutoff values for fasting glucose and random glucose. The ADA defines fasting as no caloric intake for at least 8 hours. Fasting plasma glucose results between 100 to 125 mg/dL indicate increased risk for diabetes (prediabetes). Fasting plasma glucose results greater than or equal to 126 mg/dL meet the criteria for diagnosis of diabetes. In the absence of unequivocal hyperglycemia, results should be confirmed by repeat testing. In a patient with classic symptoms of hyperglycemia or hyperglycemic crisis, random plasma glucose results greater than or equal to 200 mg/dL meet the criteria for diagnosis of diabetes. Reference: Standards of Medical Care in Diabetes 2016, [place] Diabetes Association. Diabetes Care. 2016.39(Suppl 1). Performed By: #### 2 4323-8 #### [facility] CLIA [id number] [address] [place] [address] [place] Potassium [Moles/Vol] 4.3 mmol/L Normal 3.7-5.1 [facility] Comment on above: Order Comment: Jarek leger Type: BLOOD SPECIMEN Ordering Facility: [facility] Address: [address] [place] [address] Performed By: #### 2 4323-8 #### [facility] CLIA [id number] [address] [place] [address] [place] Protein [Mass/Vol] 7.3 g/dL Normal 6.3-8.0 [facility] Comment on above: Order Comment: Speci men Type: BLOOD SPECIMEN Ordering Facility: [facility] Address: [address] [place] [address] Performed By: #### 2 4323-8 #### [facility] CLIA [id number] [address] [place] [address] [place] Sodium [Moles/Vol] 141 mmol/L Normal 136-144 [facility] Comment on above: Order Comment: Speci men Type: BLOOD SPECIMEN Ordering Facility: [facility] Address: [address] [place] [address] Performed By: #### 2 4323-8 #### [facility] CLIA [id number] [address] [place] [address] [place] Urea nitrogen [Mass/Vol] 11 mg/dL Normal 7-21 [facility] Comment on above: Order Comment: Speci men Type: BLOOD SPECIMEN Ordering Facility: [facility] Address: [address] [place] [address] Performed By: #### 2 4323-8 #### [facility] CLIA [id number] [address] [place] [address] [place] Follicle Diameter [facility] 02-22 Indication Follicle monitoring Impression Right Ovary: Size 42 mm x 31 mm x 28 mm Follicle(s): Size 11.9 mm x 10.7 mm. Mean 11.3 mm. Vol 0.715 cm . 20+ antral follicles < 10 mm Left Ovary: Size 39 mm x 39 mm x 28 mm Follicle(s): 1. Size 11.0 mm x 10.2 mm. Mean 10.6 mm. Vol 0.603 cm 2. Size 10.3 mm x 10.1 mm. Mean 10.2 mm. Vol 0.553 cm 25+ antral follicles < 10 mm Recommendations Follow up as clinically indicated. Method Transvaginal ultrasound examination. 3D ultrasound examination Uterus Uterus: Visualized Uterus position: retroverted Description of uterine malformations: none Myometrium: heterogeneous Endometrium: three-layer pattern Uterus length 68 mm Uterus width 41 mm Uterus height 32 mm Uterus Vol 45.7 cm Endometrial thickness, total 5.2 mm Right Ovary Rt ovary: Visualized Rt ovary morphology: premenopausal polycystic Rt ovary D1 42 mm Rt ovary D2 31 mm Rt ovary D3 28 mm Rt ovary mean 33.7 mm Rt ovary Vol 19.1 cm Rt ovarian follicle(s): Follicles identified Rt ovarian follicle D1 11.9 mm Rt ovarian follicle D2 10.7 mm Rt ovarian follicle mean 11.3 mm Rt ovarian follicle vol 0.715 cm Rt ovarian follicles other findings: 20+ antral follicles < 10 mm Left Ovary Lt ovary: Visualized Lt ovary morphology: premenopausal polycystic Lt ovary D1 39 mm Lt ovary D2 39 mm Lt ovary D3 28 mm Lt ovary mean 35.1 mm Lt ovary Vol 21.8 cm Lt ovarian follicle(s): Follicles identified Lt ovarian follicle D1 11.0 mm Lt ovarian follicle D2 10.2 mm Lt ovarian follicle mean 10.6 mm Lt ovarian follicle vol 0.603 cm Lt ovarian follicle D1 10.3 mm Lt ovarian follicle D2 10.1 mm Lt ovarian follicle mean 10.2 mm Lt ovarian follicle vol 0.553 cm Lt ovarian follicles other findings: 25+ antral follicles < 10 mm [place] Visualized. no free fluid visualized Performed By: Cornelia Macario; RDMS Read By: Vanessa Vo M.D. MATERNAL MEDICINE [facility] Radiology Study observation (narrative) [facility] HbA1c (Bld)on 02-23-2024 Average glucose Estimated from glycated hemoglobin (Bld) [Mass/Vol] 111 mg/dL [facility] Comment on above: eAG: (Estimated aver age glucose) is a calculated value from HgbA1c and is direct marketing representative of the average blood glucose level in the last 2-3 month period. HbA1c (Bld) [Mass fraction] 5.5 % 4.3 - 5.6 % [facility] Comment on above: [place] Diabetes As sociation guidelines indicate that patients with HgbA1c in the range 5.7-6.4% are at increased risk for development of diabetes, and intervention by lifestyle modification may be beneficial. HgbA1c greater or equal to 6.5% is considered diagnostic of diabetes. [facility] Average glucose Estimated from glycated hemoglobin (Bld) [Mass/Vol] 111 mg/dL [facility] Comment on above: Order Comment: Speci men Type: BLOOD SPECIMEN Ordering Facility: [facility] Address: [address] [place] [address] Result Comment: eAG: (Estimated average glucose) is a calculated value from HgbA1c and is direct marketing representative of the average blood glucose level in the last 2-3 month period. Performed By: #### 5 5454-3 #### [facility] CLIA [id number] [address] [place] [address] [place] HbA1c (Bld) [Mass fraction] 5.5 % Normal 4.3-5.6 [facility] Comment on above: Order Comment: Jarek leger Type: BLOOD SPECIMEN Ordering Facility: [facility] Address: [address] [place] [address] Result Comment: [place] Diabetes Association guidelines indicate that patients with HgbA1c in the range 5.7-6.4% are at increased risk for development of diabetes, and intervention by lifestyle modification may be beneficial. HgbA1c greater or equal to 6.5% is considered diagnostic of diabetes. Performed By: #### 5 5454-3 #### [facility] CLIA [id number] [address] [place] [address] [place] VITAMIN B12on 02-23-2024 Cobalamin (Vitamin B12) [Mass/Vol] 567 pg/mL 232 - 1245 pg/mL [facility] VITAMIN D 25 HYDROXYon 02-22 25-hydroxyvitamin D3 [Mass/Vol] 49.3 ng/mL 31.0 - 80.0 ng/mL [facility] Comment on above: Classification of 25 [place] Vitamin D status: Deficiency/Insufficiency: < or = 30 ng/ml. Sufficiency/Optimal Levels: 31-80 ng/mL Toxicity: > 100 ng/mL. Test performed by chemiluminescent immunoassay. Vit B12 SerPl-mCncon 024 Cobalamin (Vitamin B12) [Mass/Vol] 567 pg/mL Normal 232-1245 [facility] Comment on above: Order Comment: Jarek leger Type: BLOOD SPECIMEN Ordering Facility: [facility] Address: [address] [place] [address] Performed By: #### 2 132-9 #### [facility] CLIA [id number] [address] [facility] [address] [place] CNPNon 02-21-2024 CNPN Telephone (REIBD) KAYEGABYSUSANNAHLISSA ([id number]) 1995 F Date Time Provider Department 02/21/24 FEDE HAIRSTON During your visit today, we recorded the following information about you: Joanna Garces 02/21/2024 10:32 AM Signed Needs hcg called into [facility] Ortega Morrissey APRN.JORDAN 02/21/2024 10:40 AM Signed Medication send the [facility] specialty on 02/17. Ortega Morrissey APRN.JORDAN February 21, 2024 10:39 AM Allergies As of Date: 02/21/2024 (No Known Allergies) Date Reviewed: 11/22/2023 Reviewed by: Ortega Morrissey APRN.VENEER JOINTER HELPER - Fully Assessed Reason for Visit: needs hcg called in at [facility] [Other] Primary Visit Diagnosis:Procreation management investigation and testing [Z31.49] Prescriptions as of 02/21/2024 - metFORMIN ER (GLUCOPHAGE XR) 500 mg 24 hr tablet Take 3 tablets by mouth daily with breakfast. Start with 1 tablet daily and slowly increase the dose up to 3 tablets daily. - chorionic gonadotropin (PREGNYL) 10,000 unit solr 10,000 Units as directed. Mix vials as directed per nursing in office. Administer subcutaneous. - Syringe with Needle, Disp, (SYRINGE 3CC/20GX1 ) 3 mL 20 gauge x 1 To be used to mix, draw up and inject HCG trigger - Needle, Disp, 27 G (BD DISPOSABLE NEEDLES) 27 gauge x 1/2 ndle To be used to inject HCG trigger - letrozole (FEMARA) 2.5 mg tablet Take 2 tablets by mouth once daily for 5 days. Menstrual cycle day 3-7 - progesterone micronized (PROMETRIUM) 200 mg capsule Use 1 capsule vaginally two times a day. - PNV no.95/ferrous fum/folic ac ( ORAL) Take 1 tablet by mouth once daily. Problem List As Of Date 02/21/2024 Noted Resolved Seasonal allergies [J30.2] 10/05/2022 Diagnosed: 12/29/2022 Polycystic ovaries [E28.2] 10/05/2022 Diagnosed: 12/29/2022 Obesity due to excess calories [E66.09] 10/05/2022 Diagnosed: 12/29/2022 Menorrhagia [N92.0] 10/05/2022 Diagnosed: 12/29/2022 GERD (gastroesophageal reflux disease) [K21.9] 10/05/2022 08/17/2023 Diagnosed: 12/29/2022 Genital herpes simplex [A60.00] 10/05/2022 Diagnosed: 12/29/2022 Generalized anxiety disorder [F41.1] 10/05/2022 Diagnosed: 12/29/2022 Chronic fatigue syndrome [G93.32] 10/05/2022 Diagnosed: 12/29/2022 Fertility testing [Z31.41] 07/29/2023 Obesity, Class III, BMI 40-49.9 (morbid obesity*08/17/2023 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 Author Type: Physician Type: Filed: 03/20/2024 08:24 Note Text: Lissa Rivas is a 28 year old female with PCOS here for follow up. Plan: PCOS lab. Restart metformin. Bar Use hCG trigger instead of ovidrel due to possible side effects. Also, she might need hCG during IVF. Possible increase letrozole to 7.5 pending this IUI cycle. Follow up in Apr. This visit was conducted as a virtual visit via zoom. I have communicated my name and active licensure. The patient's identity and physical location were verified at the time of this visit. Either the patient or their legal direct marketing representative has been informed of the risks and benefits of -- and alternatives to -- treatment through a remote evaluation and consents to proceed with the evaluation remotely. I spent a total of 30 minutes on the date of the service which included preparing to see the patient, [id number] patient care, counseling and educating the patient/family/caregi deborah, ordering medications, tests, or procedures, communicating results to the patient/family/caregi deborah, and care coordination (not separately reported). Kim Khan MD Normal [facility] APTIMA MULTITEST VAGINALon 1 04-17-2023 [facility] No Panel Informationon 02-15 APTIMA BACTERIAL VAGINOSIS Not detected [facility] APTIMA SHANTA GLABRATA Not detected [facility] APTIMA CHLAMYDIA TRACHOMATIS 5 ppm [facility] APTIMA CHLAMYDIA TRACHOMATIS Not detected ppm [facility] CNPNon 02-15-2024 LAURA Telephone (REIBD) LISSA RIVAS ([id number]) 1995 F Date Time Provider Department 02/15/24 FEDE HAIRSTON During your visit today, we recorded the following information about you: PamheidiAyanna Lord 02/15/2024 11:37 AM Signed Patient states this past month in January she did not ovulate so she did not go through with iui, please follow up with patient. Ortega Morrissey APRN.VENEER JOINTER HELPER 02/15/2024 2:01 PM Addendum Spoke with Thao, states she was using OPKs last cycle and never got an LH surge. Had two weeks of high fertility but no peak. Cycle was normal length LMP 02/12 Would like to do monitoring/trigger this cycle. Flowsheet/Episode updated. Ortega Morrissey APRN.VENEER JOINTER HELPER February 15, 2024 1:49 PM Please schedule the patient for the following- Location: [facility] Provider: nurse Visit type: midcycle Reason for visit/appointment notes: midcycle Date: 02/22 Time (requested): 0700 If slot is full, please schedule the closest open slot. Call to patient needed: no Allergies As of Date: 02/15/2024 (No Known Allergies) Date Reviewed: 11/22/2023 Reviewed by: Ortega Morrissey APRN.CNP - Fully Assessed Reason for Visit: lmp 02/13 for iui - ovulation tracking [Other] Primary Visit Diagnosis:Female infertility [N97.9] Order(s):letrozole (FEMARA) 2.5 mg tabletTake 2 tablets by mouth once daily for 5 days. Menstrual cycle day 3-7Disp: 10 tabletRfl: 2 [facility] [[id number] Order #: [id number]: 1 FUTURE Prescriptions as of 02/15/2024 - letrozole (FEMARA) 2.5 mg tablet Take 2 tablets by mouth once daily for 5 days. Menstrual cycle day 3-7 - progesterone micronized (PROMETRIUM) 200 mg capsule Use 1 capsule vaginally two times a day. - PNV no.95/ferrous fum/folic ac ( ORAL) Take 1 tablet by mouth once daily. - metFORMIN ER (GLUCOPHAGE XR) 500 mg 24 hr tablet Take 3 tablets by mouth daily with breakfast. Start with 1 tablet daily and slowly increase the dose up to 3 tablets daily. Problem List As Of Date 02/15/2024 Noted Resolved Seasonal allergies [J30.2] 10/05/2022 Diagnosed: 12/29/2022 Polycystic ovaries [E28.2] 10/05/2022 Diagnosed: 12/29/2022 Obesity due to excess calories [E66.09] 10/05/2022 Diagnosed: 12/29/2022 Menorrhagia [N92.0] 10/05/2022 Diagnosed: 12/29/2022 GERD (gastroesophageal reflux disease) [K21.9] 10/05/2022 08/17/2023 Diagnosed: 12/29/2022 Genital herpes simplex [A60.00] 10/05/2022 Diagnosed: 12/29/2022 Generalized anxiety disorder [F41.1] 10/05/2022 Diagnosed: 12/29/2022 Chronic fatigue syndrome [G93.32] 10/05/2022 Diagnosed: 12/29/2022 Fertility testing [Z31.41] 07/29/2023 Obesity, Class III, BMI 40-49.9 (morbid obesity*08/17/2023 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 Menstrual cycle day 3-7 Medications Discontinued During This Encounter Prescriptions - letrozole (FEMARA) 2.5 mg tablet (Discontinued) Take 2 tablets by mouth once daily for 5 days. Menstrual cycle day 3-7 Encounter Status:Closed by ORTEGA MORRISSEY on 02/15/24 Normal [facility] POCT trichomonas manually re sultedkyle 02-15-2024 Bacterial vaginosis and vaginitis DNA panel Probe+sig amp (Vag fld) Negative Negative [facility] Interpretation and review of laboratory results Normal [facility] Trichomonas, UA Negative [facility] Yeast Negative [facility] MR BRAIN W AND WO CONTRAST ( ROUTINE)on 01-24-2024 MR BRAIN W AND WO CONTRAST (ROUTINE) MR - MRI BRAIN W WO INDICATION: Frontal headaches, mirgraines, bilateral ear pain COMPARISON: None. TECHNIQUE: Sagittal T1, axial T2, axial T2* GRE, axial FLAIR, axial DWI sequences of the brain were acquired. Postcontrast images following 10 mL of Vueway IV FINDINGS: No diffusion restriction. No acute or remote hemorrhage. CEREBRUM: Normal morphology. No signal alteration. CEREBELLUM: Normal. BRAINSTEM: Normal. VENTRICLES AND EXTRA-AXIAL SPACES: The ventricles are normal in size and symmetric. There are no extra-axial fluid collections. MAJOR ARTERIES/DURAL SINUSES: Patent. SKULL/SCALP: Normal. PARANASAL SINUSES AND MASTOID AIR CELLS: Normal. OTHER: Following contrast administration, there is no pathologic enhancement. IMPRESSION: Normal pre and postcontrast MRI of the brain. Dictated on: 01/24/2024 3:29 PM This report has been electronically signed and approved by the interpreting Radiologist. Electronically Signed Nabil Roa D.O. 2024-01-24 15:32:54 Normal Not Available Comment on above: Order Comment: Ruby rocha is working with reproductive specialist at [facility] and needs MRI done within the next 13 days. If [facility] not able to accommodate her, anywhere that is able to schedule within that timeframe would be fine. Alexandra 01-14-2024 LAURA Telephone (REIBD) LISSA RIVAS ([id number]) 1995 F Date Time Provider Department 01/14/24 ORTEGA MORRISSEY REIBD During your visit today, we recorded the following information about you: Keren Carcamo 01/14/2024 9:04 AM Signed Pt started cycle 01/12 and would like to discuss plan for scheduling iui Ortega Morrissey APRN.JORDAN 01/14/2024 4:18 PM Signed Spoke with Lissa, She is planning to use OPK only this cycle. Jeferson call with LH surge. Ortega Morrissey APRN.JORDAN January 14, 2024 4:17 PM Allergies As of Date: 01/14/2024 (No Known Allergies) Date Reviewed: 11/22/2023 Reviewed by: Ortega Morrissey APRN.JORDAN - Fully Assessed Reason for Visit: iui plan , cd1 01/12 [Other] Primary Visit Diagnosis:Procreation management investigation and testing [Z31.49] Prescriptions as of 01/14/2024 - progesterone micronized (PROMETRIUM) 200 mg capsule Use 1 capsule vaginally two times a day. - letrozole (FEMARA) 2.5 mg tablet Take 2 tablets by mouth once daily for 5 days. Menstrual cycle day 3-7 - PNV no.95/ferrous fum/folic ac ( ORAL) Take 1 tablet by mouth once daily. - metFORMIN ER (GLUCOPHAGE XR) 500 mg 24 hr tablet Take 3 tablets by mouth daily with breakfast. Start with 1 tablet daily and slowly increase the dose up to 3 tablets daily. Problem List As Of Date 01/14/2024 Noted Resolved Seasonal allergies [J30.2] 10/05/2022 Diagnosed: 12/29/2022 Polycystic ovaries [E28.2] 10/05/2022 Diagnosed: 12/29/2022 Obesity due to excess calories [E66.09] 10/05/2022 Diagnosed: 12/29/2022 Menorrhagia [N92.0] 10/05/2022 Diagnosed: 12/29/2022 GERD (gastroesophageal reflux disease) [K21.9] 10/05/2022 08/17/2023 Diagnosed: 12/29/2022 Genital herpes simplex [A60.00] 10/05/2022 Diagnosed: 12/29/2022 Generalized anxiety disorder [F41.1] 10/05/2022 Diagnosed: 12/29/2022 Chronic fatigue syndrome [G93.32] 10/05/2022 Diagnosed: 12/29/2022 Fertility testing [Z31.41] 07/29/2023 Obesity, Class III, BMI 40-49.9 (morbid obesity*08/17/2023 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 Ortega Morrissey APRN.CNP 12/31/2023 10:26 AM Signed WHI GAYATHRI IUI PROCEDURE NOTE Date: 12/31/2023 Primary Proceduralist: Ortega Morrissey APRN.CNP Consents and Labels Consent Signed: Informed Consent obtained and on the chart Labels Verified With Patient: Yes Indications: Lissa Rivas, is a 28 year old female here today for intrauterine insemination. IUI # Series 1 Cycle 3. Cycle Day: 20 Last menstrual period: 12/12/2023 [place] Protocol: UNIVERSAL PROTOCOL / SAFETY CHECKLIST Procedure to be Performed: IUI Sign In: A Moment of CARE was completed. Personnel directly involved with the procedure wore the appropriate PPE (Personal Protective Equipment). Patient/Surrogate Stated/Verified: PATIENT VERIFIED(optional for EMERGENT procedures): Patient name, Date of , Relevant allergies, and The intended procedure Time Out Communication: Intended patient and procedure match the source documents. Consent documented and matches the intended procedure. Sign Out: SIGN OUT (optional for EMERGENT procedures): No specimen collected. All instruments, equipment, possible retained foreign bodies accounted for. Post-procedure follow-up management communicated and Plan of Care Visit completed when applicable. Ortega Morrissey APRN.CNP IUI IUI Date: 12/31/23 Partner's Name: Brenton Rivas IUI Time: 10:16 AM EDT Partner's : 08/07/1993 IUI #: Series 1 Cycle 3 Partner's Partner's Ethnicity/Race: NOT or Patient's LMP: 12/12/23 Cycle Day: 20 Pre-Procedure Diagnosis: Infertility Post-Procedure Diagnosis: Infertility Cycle Meds: Letrozole 5 mg Luteal Phase Progesterone: Prometrium Frequency: Twice a day Starting On: 01/02/24 Trigger: LH Surge Date (Comment: 12/30/2023) Catheter Type: Curve catheter Tenaculum: No Catheter passed: Easy Complications: None Sperm Information: Source of Sperm: Partner Ejaculated: Yes Fresh/Frozen: Fresh TMC (total motile count of sperm after wash): 60.2 million Cycle reviewed, all questions answered. Pt instructed to take a test in 17 days if no menses and call with results. SIGNATURE: Ortega Morrissey APRN.CNP PATIENT NAME: Lissa Rivas DATE: December 31, 2023 TIME: 10:25 AM Referring Provider: SELF [[id number]] Allergies As of Date: 12/31/2023 (No Known Allergies) Date Reviewed: 11/22/2023 Reviewed by: Ortega Morrissey APRN.VENEER JOINTER HELPER - Fully Assessed Reason for Visit: IUI [Other] Primary Visit Diagnosis:Encounter for artificial insemination [Z31.89] Prescriptions as of 12/31/2023 - progesterone micronized (PROMETRIUM) 200 mg capsule Use 1 capsule vaginally two times a day. - letrozole (FEMARA) 2.5 mg tablet Take 2 tablets by mouth once daily for 5 days. Menstrual cycle day 3-7 - PNV no.95/ferrous fum/folic ac ( ORAL) Take 1 tablet by mouth once daily. - metFORMIN ER (GLUCOPHAGE XR) 500 mg 24 hr tablet Take 3 tablets by mouth daily with breakfast. Start with 1 tablet daily and slowly increase the dose up to 3 tablets daily. Problem List As Of Date 12/31/2023 Noted Resolved Seasonal allergies [J30.2] 10/05/2022 Diagnosed: 12/29/2022 Polycystic ovaries [E28.2] 10/05/2022 Diagnosed: 12/29/2022 Obesity due to excess calories [E66.09] 10/05/2022 Diagnosed: 12/29/2022 Menorrhagia [N92.0] 10/05/2022 Diagnosed: 12/29/2022 GERD (gastroesophageal reflux disease) [K21.9] 10/05/2022 08/17/2023 Diagnosed: 12/29/2022 Genital herpes simplex [A60.00] 10/05/2022 Diagnosed: 12/29/2022 Generalized anxiety disorder [F41.1] 10/05/2022 Diagnosed: 12/29/2022 Chronic fatigue syndrome [G93.32] 10/05/2022 Diagnosed: 12/29/2022 Fertility testing [Z31.41] 07/29/2023 Obesity, Class III, BMI 40-49.9 (morbid obesity*08/17/2023 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 Encounter Status:Closed by OR[facility]SEY [facility] Nurse Visit (REIAV) LISSA RIVAS ([id number]) 1995 F Date Time Provider Department 12/21/23 8:30 AM FEDE HAIRSTON During your visit today, we recorded the following information about you: Fede Hairston MD 12/21/2023 2:32 PM Signed Follicular Ultrasound Monitoring Visit Patient here for follicle monitoring and/or endometrial assessment, via ultrasound, and lab testing. See imaging documentation and GAYATHRI cycle flow sheet for final report and plan. Ultrasound images assessed for follicular growth and maturation as well as endometrial development. Hormone lab values assessed. Treatment plan discussed with Fertility Team and plan provided to patient via a Fertility rock climbing team member. MD Darrell Branch Laura, RN 12/21/2023 2:32 PM Signed pt using LH surge strips and will call to irvin IUI Robin Grewal RN December 21, 2023 2:32 PM Referring Provider: ORTEGA MORRISSEY [[id number]] Allergies As of Date: 12/21/2023 (No Known Allergies) Date Reviewed: 11/22/2023 Reviewed by: Ortega Morrissey APRN.VENEER JOINTER HELPER - Fully Assessed Visit Diagnosis:Female infertility [N97.9] Order(s):FOLLICULAR US I [[id number]] Order #: [id number]. #:[id number] IEWPOINTQty: 1 Prescriptions as of 12/21/2023 - progesterone micronized (PROMETRIUM) 200 mg capsule Use 1 capsule vaginally two times a day. - letrozole (FEMARA) 2.5 mg tablet Take 2 tablets by mouth once daily for 5 days. Menstrual cycle day 3-7 - PNV no.95/ferrous fum/folic ac ( ORAL) Take 1 tablet by mouth once daily. - metFORMIN ER (GLUCOPHAGE XR) 500 mg 24 hr tablet Take 3 tablets by mouth daily with breakfast. Start with 1 tablet daily and slowly increase the dose up to 3 tablets daily. Problem List As Of Date 12/21/2023 Noted Resolved Seasonal allergies [J30.2] 10/05/2022 Diagnosed: 12/29/2022 Polycystic ovaries [E28.2] 10/05/2022 Diagnosed: 12/29/2022 Obesity due to excess calories [E66.09] 10/05/2022 Diagnosed: 12/29/2022 Menorrhagia [N92.0] 10/05/2022 Diagnosed: 12/29/2022 GERD (gastroesophageal reflux disease) [K21.9] 10/05/2022 08/17/2023 Diagnosed: 12/29/2022 Genital herpes simplex [A60.00] 10/05/2022 Diagnosed: 12/29/2022 Generalized anxiety disorder [F41.1] 10/05/2022 Diagnosed: 12/29/2022 Chronic fatigue syndrome [G93.32] 10/05/2022 Diagnosed: 12/29/2022 Fertility testing [Z31.41] 07/29/2023 Obesity, Class III, BMI 40-49.9 (morbid obesity*08/17/2023 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 Size 16.6 mm x 15.1 mm. Mean 15.8 mm. Vol 1.972 cm 2. Size 12.3 mm x 8.8 mm. Mean 10.5 mm. Vol 0.493 cm 20 + antral follicles < 10 mm Left Ovary: Follicle(s): Size 9.5 mm x 6.1 mm. Mean 7.8 mm. Vol 0.186 cm . 25+ antral follicles < 10 mm Recommendations Follow up as clinically indicated. Method Transvaginal ultrasound examination. 3D ultrasound examination Uterus Uterus: Visualized Uterus position: retroverted Endometrium: three-layer pattern Endometrial thickness, total 6.7 mm Right Ovary Rt ovary: Visualized Rt ovary morphology: premenopausal polycystic Rt ovarian follicle(s): Follicles identified Rt ovarian follicle D1 16.6 mm Rt ovarian follicle D2 15.1 mm Rt ovarian follicle mean 15.8 mm Rt ovarian follicle vol 1.972 cm Rt ovarian follicle D1 12.3 mm Rt ovarian follicle D2 8.8 mm Rt ovarian follicle mean 10.5 mm Rt ovarian follicle vol 0.493 cm Rt ovarian follicles other findings: 20 + antral follicles < 10 mm Left Ovary Lt ovary: Visualized Lt ovary morphology: premenopausal polycystic Lt ovarian follicle(s): Follicles identified Lt ovarian follicle D1 9.5 mm Lt ovarian follicle D2 6.1 mm Lt ovarian follicle mean 7.8 mm Lt ovarian follicle vol 0.186 cm Lt ovarian follicles other findings: 25+ antral follicles < 10 mm [place] Visualized. no free fluid visualized Performed By: Cornelia Macario; RDMS Read By: Fede Hairston M.D. MATERNAL MEDICINE [facility] Radiology Study observation (narrative) [facility] 12-13-2023 LAURA Telephone (REIBD) LISSA RIVAS ([id number]) 1995 F Date Time Provider Department 12/13/23 FEDE HAIRSTON During your visit today, we recorded the following information about you: Ortega Morrissey APRN.CNP 12/13/2023 4:49 PM Signed LMP 12/11 Plan: Let 5mg, trigger, IUI#2 Flowsheet/episode created Ortega Morrissey APRN.CNP December 13, 2023 4:42 PM Please schedule the patient for the following- Location: [facility] Provider: Nurse Visit type: Midcycle Reason for visit/appointment notes: Midcycle Date: 12/20 Time (requested): 730 If slot is full, please schedule the closest open slot. Call to patient needed: no Allergies As of Date: 12/13/2023 (No Known Allergies) Date Reviewed: 11/22/2023 Reviewed by: Ortega Morrissey APRN.VENEER JOINTER HELPER - Fully Assessed Reason for Visit: LMP 12/12/23/ set up monitored cycle [Other] Patient Update [1234] Primary Visit Diagnosis:Female infertility [N97.9] Order(s):FOLLICULAR US [facility] [[id number]] Order #: [id number]: 1 FUTURE Choriogonadotropin Pam,HumRec (OVIDREL) 250 mcg/0.5 mL syrgInject 250 mcg subcutaneously one time only for 1 dose.Disp: 0.5 mLRfl: 1 Prescriptions as of 12/13/2023 - Choriogonadotropin Pam,HumRec (OVIDREL) 250 mcg/0.5 mL syrg Inject 250 mcg subcutaneously one time only for 1 dose. - progesterone micronized (PROMETRIUM) 200 mg capsule Use 1 capsule vaginally two times a day. - letrozole (FEMARA) 2.5 mg tablet Take 2 tablets by mouth once daily for 5 days. Menstrual cycle day 3-7 - PNV no.95/ferrous fum/folic ac ( ORAL) Take 1 tablet by mouth once daily. - metFORMIN ER (GLUCOPHAGE XR) 500 mg 24 hr tablet Take 3 tablets by mouth daily with breakfast. Start with 1 tablet daily and slowly increase the dose up to 3 tablets daily. Problem List As Of Date 12/13/2023 Noted Resolved Seasonal allergies [J30.2] 10/05/2022 Diagnosed: 12/29/2022 Polycystic ovaries [E28.2] 10/05/2022 Diagnosed: 12/29/2022 Obesity due to excess calories [E66.09] 10/05/2022 Diagnosed: 12/29/2022 Menorrhagia [N92.0] 10/05/2022 Diagnosed: 12/29/2022 GERD (gastroesophageal reflux disease) [K21.9] 10/05/2022 08/17/2023 Diagnosed: 12/29/2022 Genital herpes simplex [A60.00] 10/05/2022 Diagnosed: 12/29/2022 Generalized anxiety disorder [F41.1] 10/05/2022 Diagnosed: 12/29/2022 Chronic fatigue syndrome [G93.32] 10/05/2022 Diagnosed: 12/29/2022 Fertility testing [Z31.41] 07/29/2023 Obesity, Class III, BMI 40-49.9 (morbid obesity*08/17/2023 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 Medications Discontinued During This Encounter Prescriptions - Choriogonadotropin Pam,HumRec (OVIDREL) 250 mcg/0.5 mL syrg (Discontinued) Inject 250 mcg subcutaneously one time only for 1 dose. Encounter Status:Closed by ORTEGA MORRISSEY on 12/13/23 [facility] CNOVon 11-28-2023 CNOV Office Visit (REIBD) LISSA RIVAS ([id number]) 1995 F Date Time Provider Department 11/28/23 11:00 AM DESHAWN RIOJAS During your visit today, we recorded the following information about you: Evangelina Painter 11/28/2023 10:54 AM Signed IUI specimen released to provider Evangelina Painter November 28, 2023 10:48 AM Deshawn Rijoas MD 11/28/2023 10:54 AM Signed WHI GAYATHRI IUI PROCEDURE NOTE Date: 11/28/2023 Primary Proceduralist: Deshawn Riojas MD, Sandra Cruz MD Consents and Labels Consent Signed: Informed Consent obtained and on the chart Labels Verified With Patient: Yes Indications: Lissa Rivas, is a 28 year old female here today for intrauterine insemination. IUI # . Cycle Day: 13 Last menstrual period: 11/12/2023 [place] Protocol: UNIVERSAL PROTOCOL / SAFETY CHECKLIST Procedure to be Performed: IUI Sign In: A Moment of CARE was completed. Personnel directly involved with the procedure wore the appropriate PPE (Personal Protective Equipment). Patient/Surrogate Stated/Verified: PATIENT VERIFIED(optional for EMERGENT procedures): Patient name, Date of , Relevant allergies, and The intended procedure Time Out Communication: Intended patient and procedure match the source documents. Consent documented and matches the intended procedure. Sign Out: SIGN OUT (optional for EMERGENT procedures): No specimen collected. Deshawn Riojas MD IUI IUI Date: 11/28/23 Partner's Name: Brenton Rivas Partner's : 08/07/1993 Partner's Partner's Ethnicity/Race: NOT or Patient's LMP: 11/12/23 Cycle Day: 13 Pre-Procedure Diagnosis: Infertility Post-Procedure Diagnosis: Infertility Cycle Meds: Letrozole 5 mg Luteal Phase Progesterone: Prometrium Frequency: Once a day Starting On: 11/30/23 Trigger: Ovidrel Catheter Type: Curve catheter Sperm Information: Source of Sperm: Partner Ejaculated: Yes TMC (total motile count of sperm after wash): 44 Million Cycle reviewed, all questions answered. Pt instructed to take a test in 17 days if no menses and call with results. SIGNATURE: Deshawn Riojas MD PATIENT NAME: Lissa Rivas DATE: November 28, 2023 TIME: 10:52 AM Evangelina Painter 11/28/2023 11:00 AM Signed IUI Pre: 72 M/ml, 63% Post: 73 M/ml, 88% Insem # 44.8 million Referring Provider: DESHAWN RIOJAS [[id number]] Allergies As of Date: 11/28/2023 (No Known Allergies) Date Reviewed: 11/22/2023 Reviewed by: Ortega Morrissey, DEBBIE.VENEER JOINTER HELPER - Fully Assessed Primary Visit Diagnosis:Female infertility [N97.9] Prescriptions as of 11/28/2023 - progesterone micronized (PROMETRIUM) 200 mg capsule Use 1 capsule vaginally two times a day. - letrozole (FEMARA) 2.5 mg tablet Take 2 tablets by mouth once daily for 5 days. Menstrual cycle day 3-7 - PNV no.95/ferrous fum/folic ac ( ORAL) Take 1 tablet by mouth once daily. - metFORMIN ER (GLUCOPHAGE XR) 500 mg 24 hr tablet Take 3 tablets by mouth daily with breakfast. Start with 1 tablet daily and slowly increase the dose up to 3 tablets daily. Problem List As Of Date 11/28/2023 Noted Resolved Seasonal allergies [J30.2] 10/05/2022 Diagnosed: 12/29/2022 Polycystic ovaries [E28.2] 10/05/2022 Diagnosed: 12/29/2022 Obesity due to excess calories [E66.09] 10/05/2022 Diagnosed: 12/29/2022 Menorrhagia [N92.0] 10/05/2022 Diagnosed: 12/29/2022 GERD (gastroesophageal reflux disease) [K21.9] 10/05/2022 08/17/2023 Diagnosed: 12/29/2022 Genital herpes simplex [A60.00] 10/05/2022 Diagnosed: 12/29/2022 Generalized anxiety disorder [F41.1] 10/05/2022 Diagnosed: 12/29/2022 Chronic fatigue syndrome [G93.32] 10/05/2022 Diagnosed: 12/29/2022 Fertility testing [Z31.41] 07/29/2023 Obesity, Class III, BMI 40-49.9 (morbid obesity*08/17/2023 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 Lead follicle: 21mm vs CL Erma Donis RN November 22, 2023 8:44 AM Message sent to Dr. Howard to see if patient needs labs based on scan. Erma Donis RN November 22, 2023 8:09 AM Labs ordered and called patient. She will drive back to [employer] now to get done. Erma Donis RN November 22, 2023 8:45 AM 11/22/2023 11 trigger 25+<10mm 21.2, 25+<10mm 5.6mm tri p4=0.3 lh=5.1 JR 11/23/2023 12 11/24/2023 13 IUI RN called patient, name and verified. Plan given for midcycle per physician, see flowsheet for details. Vaccsyst message sent. Medications reviewed and verified, instructions given. Patient denies any questions or concerns. Erma Donis RN November 22, 2023 12:53 PM Referring Provider: ORTEGA MORRISSEY [[id number]] Allergies As of Date: 11/22/2023 (No Known Allergies) Date Reviewed: 11/22/2023 Reviewed by: Ortega Morrissey APRN.VENEER JOINTER HELPER - Fully Assessed Visit Diagnosis:Female infertility [N97.9] Order(s):FOLLICULAR [facility] [[id number]] Order #: [id number]. #:[id number] IEWPOINTQty: 1 PROGESTERONE [SQPROG] Order #: [id number] FUTURE LUTEINIZING HORMONE [SQLH] Order #: [id number] FUTURE Prescriptions as of 11/22/2023 - progesterone micronized (PROMETRIUM) 200 mg capsule Use 1 capsule vaginally two times a day. - letrozole (FEMARA) 2.5 mg tablet Take 2 tablets by mouth once daily for 5 days. Menstrual cycle day 3-7 - PNV no.95/ferrous fum/folic ac ( ORAL) Take 1 tablet by mouth once daily. - metFORMIN ER (GLUCOPHAGE XR) 500 mg 24 hr tablet Take 3 tablets by mouth daily with breakfast. Start with 1 tablet daily and slowly increase the dose up to 3 tablets daily. Problem List As Of Date 11/22/2023 Noted Resolved Seasonal allergies [J30.2] 10/05/2022 Diagnosed: 12/29/2022 Polycystic ovaries [E28.2] 10/05/2022 Diagnosed: 12/29/2022 Obesity due to excess calories [E66.09] 10/05/2022 Diagnosed: 12/29/2022 Menorrhagia [N92.0] 10/05/2022 Diagnosed: 12/29/2022 GERD (gastroesophageal reflux disease) [K21.9] 10/05/2022 08/17/2023 Diagnosed: 12/29/2022 Genital herpes simplex [A60.00] 10/05/2022 Diagnosed: 12/29/2022 Generalized anxiety disorder [F41.1] 10/05/2022 Diagnosed: 12/29/2022 Chronic fatigue syndrome [G93.32] 10/05/2022 Diagnosed: 12/29/2022 Fertility testing [Z31.41] 07/29/2023 Obesity, Class III, BMI 40-49.9 (morbid obesity*08/17/2023 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 Recommendations Follow up as clinically indicated. Method Transvaginal ultrasound examination. 3D ultrasound examination Uterus Uterus: Visualized Uterus position: retroverted Endometrium: three-layer pattern Endometrial thickness, total 5.6 mm Right Ovary Rt ovary: Visualized Rt ovary morphology: premenopausal polycystic Rt ovarian follicle(s): Follicles identified Rt ovarian follicles other findings: 25 + antral follicles < 10 mm Left Ovary Lt ovary: Visualized Lt ovarian follicle(s): Follicles identified Lt ovarian follicle D1 23.9 mm Lt ovarian follicle D2 18.6 mm Lt ovarian follicle mean 21.2 mm Lt ovarian follicle vol 4.315 cm Lt ovarian follicle findings: follicle VS corpus luteum Lt ovarian follicles other findings: 25 + antral follicles < 10 mm Cul de Sac Visualized. no free fluid visualized Performed By: Cornelia Macario; [facility] Read By: Jailene Howard M.D. MATERNAL MEDICINE [facility] Radiology Study observation (narrative) [facility] LH SerPl-aCncon 11-22-2023 Lutropin Qn 5.1 m[IU]/mL Normal See comment [facility] Comment on above: Order Comment: Speci men Type: BLOOD SPECIMEN Ordering Facility: [facility] Address: [address] [place] [address] Result Comment: Refe rence range: Follicular: 2.4-12.6 mIU/mL Midcycle: 14.0-95.6 mIU/mL Luteal: 1.0-11.4 mIU/mL Post Varnell: 7.7-58.5 mIU/mL Performed By: #### 2 839-9, 66178-0 #### [facility] CLIA [id number] [address] [facility] LUTEINIZING HORMONEon 2023 Lutropin Qn 5.1 m[IU]/mL See comment mIU/mL [facility] Comment on above: Reference range: Follicular: 2.4-12.6 mIU/mL Midcycle: 14.0-95.6 mIU/mL Luteal: 1.0-11.4 mIU/mL Post Varnell: 7.7-58.5 mIU/mL No Panel Informationon 11-21 [facility] PROGESTERONEon 11-22-2023 Progesterone [Mass/Vol] 0.3 ng/mL See comment [facility] Comment on above: Menstrual Cycle Prog esterone Reference Ranges: Follicular: <1.0 ng/mL Ovulation: <12.1 ng/mL Luteal: 1.8 to 23.9 ng/mL. Progesterone Reference Ranges vary by gestational period: First Trimester: 11.0 to 44.3 ng/mL Second Trimester: 25.4 to 83.3 ng/mL Third Trimester: 58.7 to 214 ng/mL Post menopausal Progesterone: <0.5 ng/mL Reference: 1. Progesterone (Progesterone III) [package insert V 1.0 Cam[place]onian]. [facility], [place], [place]. December 2014. Progest SerPl-mCncon 024 Progesterone [Mass/Vol] 0.3 ng/mL Normal See comment [facility] Comment on above: Order Comment: Specarti leger Type: BLOOD SPECIMEN Ordering Facility: [facility] Address: [address] [place] [address] Result Comment: Mens trual Cycle Progesterone Reference Ranges: Follicular: <1.0 ng/mL Ovulation: <12.1 ng/mL Luteal: 1.8 to 23.9 ng/mL. Progesterone Reference Ranges vary by gestational period: First Trimester: 11.0 to 44.3 ng/mL Second Trimester: 25.4 to 83.3 ng/mL Third Trimester: 58.7 to 214 ng/mL Post menopausal Progesterone: <0.5 ng/mL Reference: 1. Progesterone (Progesterone III) [package insert V 1.0 [place]onian]. [facility], [place], [place]. December 2014. Performed By: #### 2 839-9, 52104-8 #### [facility] CLIA [id number] [address] [facility] 11-12-2023 CNPN Telephone (REIBD) LISSA RIVAS ([id number]) 1995 F Date Time Provider Department 11/12/23 SELF REIBD During your visit today, we recorded the following information about you: Keren Carcamo 11/12/2023 1:56 PM Signed Pt had iui 10/25 , pt had negative preg 11/08 or 11/09 , pt started cycle 11/11 Madeleine Orta PA-C 11/12/2023 6:08 PM Signed Patient is planning IUI. FYI: DEXTER Mg. Please see the checklist Madeleine Orta PA-C November 12, 2023 6:07 PM Ortega Morrissey APRN.CNP 11/15/2023 9:46 AM Signed Plan: Let 5mg/trigger/IUI #2 Ortega Morrissey APRN.CNP November 15, 2023 9:39 AM Please schedule the patient for the following- Location: [facility] Provider: Nurse Visit type: Follicular scan Reason for visit/appointment notes: Follicular scan Date: 11/21 Time (requested): 714 If slot is full, please schedule the closest open slot. Call to patient needed: no Allergies As of Date: 11/12/2023 (No Known Allergies) Date Reviewed: 08/18/2023 Reviewed by: Cruz Prescott MA - Fully Assessed Reason for Visit: iui 10/25 , cd 1 11/11 [Other] Primary Visit Diagnosis:Procreation management investigation and testing [Z31.49] Other Visit Diagnosis:Female infertility [N97.9] Order(s):[facility] [[id number]] Order #: [id number]: 1 FUTURE Prescriptions as of 11/15/2023 - progesterone micronized (PROMETRIUM) 200 mg capsule Use 1 capsule vaginally two times a day. - letrozole (FEMARA) 2.5 mg tablet Take 2 tablets by mouth once daily for 5 days. Menstrual cycle day 3-7 - PNV no.95/ferrous fum/folic ac ( ORAL) Take 1 tablet by mouth once daily. - metFORMIN ER (GLUCOPHAGE XR) 500 mg 24 hr tablet Take 3 tablets by mouth daily with breakfast. Start with 1 tablet daily and slowly increase the dose up to 3 tablets daily. Problem List As Of Date 11/12/2023 Noted Resolved Seasonal allergies [J30.2] 10/05/2022 Diagnosed: 12/29/2022 Polycystic ovaries [E28.2] 10/05/2022 Diagnosed: 12/29/2022 Obesity due to excess calories [E66.09] 10/05/2022 Diagnosed: 12/29/2022 Menorrhagia [N92.0] 10/05/2022 Diagnosed: 12/29/2022 GERD (gastroesophageal reflux disease) [K21.9] 10/05/2022 08/17/2023 Diagnosed: 12/29/2022 Genital herpes simplex [A60.00] 10/05/2022 Diagnosed: 12/29/2022 Generalized anxiety disorder [F41.1] 10/05/2022 Diagnosed: 12/29/2022 Chronic fatigue syndrome [G93.32] 10/05/2022 Diagnosed: 12/29/2022 Fertility testing [Z31.41] 07/29/2023 Obesity, Class III, BMI 40-49.9 (morbid obesity*08/17/2023 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] 08/17/2023 Encounter Status:Closed by ORTEGA MORRISSEY on 11/15/23 [facility] CNOVon 10-26-2023 CNOV Office Visit (REIAV) LISSA RIVAS ([id number]) 1995 F Date Time Provider Department 10/26/23 11:00 AM ORTEGA MORRISSEY During your visit today, we recorded the following information about you: Ortega Morrissey APRN.CNP 10/26/2023 11:37 AM Signed WHI GAYATHRI IUI PROCEDURE NOTE Date: 10/26/2023 Primary Proceduralist: Ortega Morrissey APRN.CNP Consents and Labels Consent Signed: Informed Consent obtained and on the chart Labels Verified With Patient: Yes Indications: Lissa Rivas, is a 28 year old female here today for intrauterine insemination. IUI # Series 1 Cycle 1. Cycle Day: 15 Last menstrual period: 10/12/2023 [place] Protocol: UNIVERSAL PROTOCOL / SAFETY CHECKLIST Procedure to be Performed: IUI Sign In: A Moment of CARE was completed. Personnel directly involved with the procedure wore the appropriate PPE (Personal Protective Equipment). Patient/Surrogate Stated/Verified: PATIENT VERIFIED(optional for EMERGENT procedures): Patient name, Date of , Relevant allergies, and The intended procedure Time Out Communication: Intended patient and procedure match the source documents. Consent documented and matches the intended procedure. Sign Out: SIGN OUT (optional for EMERGENT procedures): No specimen collected. All instruments, equipment, possible retained foreign bodies accounted for. Post-procedure follow-up management communicated and Plan of Care Visit completed when applicable. Ortega Morrissey APRN.CNP IUI IUI Date: 10/26/23 Partner's Name: Brenton Evelyn IUI Time: 11:25 AM EDT Partner's : 08/07/1993 IUI #: Series 1 Cycle 1 Partner's Partner's Ethnicity/Race: NOT or Patient's LMP: 10/12/23 Cycle Day: 15 Pre-Procedure Diagnosis: Infertility Post-Procedure Diagnosis: Infertility Cycle Meds: Letrozole 5 mg Luteal Phase Progesterone: N/A Trigger: Ovidrel (Comment: 10/24/23) Catheter Type: Curve catheter Tenaculum: No Catheter passed: Easy Complications: None Sperm Information: Source of Sperm: Partner Ejaculated: Yes Fresh/Frozen: Fresh TMC (total motile count of sperm after wash): 146.9 million Cycle reviewed, all questions answered. Pt instructed to take a test in 17 days if no menses and call with results. SIGNATURE: Ortega Morrissey APRN.CNP PATIENT NAME: Lissa Rivas DATE: October 26, 2023 TIME: 11:36 AM Referring Provider: ORTEGA MORRISSEY [[id number]] Allergies As of Date: 10/26/2023 (No Known Allergies) Date Reviewed: 08/18/2023 Reviewed by: Cruz Prescott MA - Fully Assessed Primary Visit Diagnosis:Encounter for artificial insemination [Z31.89] Prescriptions as of 10/26/2023 - medroxyPROGESTERone (PROVERA) 10 mg tablet Take 1 tablet by mouth once daily. - letrozole (FEMARA) 2.5 mg tablet Take 2 tablets by mouth once daily for 5 days. Menstrual cycle day 3-7 - PNV no.95/ferrous fum/folic ac ( ORAL) Take 1 tablet by mouth once daily. - metFORMIN ER (GLUCOPHAGE XR) 500 mg 24 hr tablet Take 3 tablets by mouth daily with breakfast. Start with 1 tablet daily and slowly increase the dose up to 3 tablets daily. - medroxyPROGESTERone (PROVERA) 10 mg tablet Take 1 tablet by mouth once daily for 10 days. 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 Lead follicle: 14 Erma Donis RN October 22, 2023 7:25 AM RN called patient, name and verified. Plan given for midcycle per physician, see flowsheet for details. Vaccsyst message sent. Medications reviewed and verified, instructions given. Patient denies any questions or concerns. Erma Donis RN October 22, 2023 1:38 PM Ayanna Trevizo MD 10/22/2023 11:02 PM Signed GAYATHRI Attending Physician Note: Ultrasound and lab results reviewed. Based on review of ultrasound and lab results, medication dose and follow up date plans provided. See cycle flowsheet for dosing details. Ayanna Trevizo MD, FLACO Referring Provider: ORTEGA MORRISSEY [[id number]] Allergies As of Date: 10/22/2023 (No Known Allergies) Date Reviewed: 08/18/2023 Reviewed by: Cruz Prescott MA - Fully Assessed Visit Diagnosis:Female infertility [N97.9] Order(s):FOLLICULAR US I [[id number]] Order #: [id number]. #:[id number] IEWPOINTQty: 1 Prescriptions as of 10/22/2023 - medroxyPROGESTERone (PROVERA) 10 mg tablet Take 1 tablet by mouth once daily. - letrozole (FEMARA) 2.5 mg tablet Take 2 tablets by mouth once daily for 5 days. Menstrual cycle day 3-7 - PNV no.95/ferrous fum/folic ac ( ORAL) Take 1 tablet by mouth once daily. - metFORMIN ER (GLUCOPHAGE XR) 500 mg 24 hr tablet Take 3 tablets by mouth daily with breakfast. Start with 1 tablet daily and slowly increase the dose up to 3 tablets daily. - medroxyPROGESTERone (PROVERA) 10 mg tablet Take 1 tablet by mouth once daily for 10 days. 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 Size 14.4 mm x 13.7 mm. Mean 14.0 mm. Vol 1.407 cm 2. Size 16.2 mm x 12.2 mm. Mean 14.2 mm. Vol 1.256 cm # antral follicles 25< 10 mm Left Ovary: Size 37 mm x 32 mm x 24 mm Follicle(s): # antral follicles 25 < 10 mm Recommendations Follow up as clinically indicated. Method Transvaginal ultrasound examination. 3D ultrasound examination Uterus Uterus: Visualized Uterus position: retroverted Endometrium: three-layer pattern Uterus length 69 mm Uterus width 38 mm Uterus height 33 mm Uterus Vol 44.7 cm Endometrial thickness, total 4.1 mm Right Ovary Rt ovary: Visualized Outline: smooth Rt ovary morphology: premenopausal polycystic Rt ovary D1 41 mm Rt ovary D2 32 mm Rt ovary D3 31 mm Rt ovary mean 34.6 mm Rt ovary Vol 21.1 cm Rt ovarian follicle(s): Follicles identified Rt ovarian follicle D1 14.4 mm Rt ovarian follicle D2 13.7 mm Rt ovarian follicle mean 14.0 mm Rt ovarian follicle vol 1.407 cm Rt ovarian follicle D1 16.2 mm Rt ovarian follicle D2 12.2 mm Rt ovarian follicle mean 14.2 mm Rt ovarian follicle vol 1.256 cm Rt ovarian follicles other findings: # antral follicles 25< 10 mm Left Ovary Lt ovary: Visualized Outline: smooth Lt ovary morphology: premenopausal polycystic Lt ovary D1 37 mm Lt ovary D2 32 mm Lt ovary D3 24 mm Lt ovary mean 31.1 mm Lt ovary Vol 14.9 cm Lt ovarian follicle(s): Follicles identified Lt ovarian follicles other findings: # antral follicles 25 < 10 mm [place] Visualized. no free fluid visualized Performed By: Paula Peterson RDMS Read By: Ayanna Trevizo MD MATERNAL MEDICINE [facility] Radiology Study observation (narrative) [facility] 10-20-2023 [facility] Telephone (REIBD) LISSA RIVAS ([id number]) 1995 F Date Time Provider Department 10/20/23 SELF REIBD During your visit today, we recorded the following information about you: Keren Carcamo 10/20/2023 2:26 PM Signed Pts pharmacy called and would like to know when she needs to order trigger shot Ani Stovall APRN.CNP 10/20/2023 3:11 PM Signed patient instructed to order trigger now so that she has it by Wednesday Ani Stovall APRN.CNP October 20, 2023 3:10 PM Allergies As of Date: 10/20/2023 (No Known Allergies) Date Reviewed: 08/18/2023 Reviewed by: Cruz Prescott MA - Fully Assessed Reason for Visit: trigger shot [Other] Primary Visit Diagnosis:Treatment plan provided [Z71.9] Prescriptions as of 10/20/2023 - medroxyPROGESTERone (PROVERA) 10 mg tablet Take 1 tablet by mouth once daily. - letrozole (FEMARA) 2.5 mg tablet Take 2 tablets by mouth once daily for 5 days. Menstrual cycle day 3-7 - PNV no.95/ferrous fum/folic ac ( ORAL) Take 1 tablet by mouth once daily. - metFORMIN ER (GLUCOPHAGE XR) 500 mg 24 hr tablet Take 3 tablets by mouth daily with breakfast. Start with 1 tablet daily and slowly increase the dose up to 3 tablets daily. - medroxyPROGESTERone (PROVERA) 10 mg tablet Take 1 tablet by mouth once daily for 10 days. 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 Please call patient. Randee Myers RN 10/12/2023 2:33 PM Signed Called the patient she verified her name and date of period started today has letrozole needs trigger shot Randee Myers RN October 12, 2023 2:30 PM Flowsheet done Please schedule the patient for the following- Location: [place] Provider: nurse Visit type: mid cycle Reason for visit/appointment notes: mid cycle non ivf Date: 10-22-23 Time (requested): 0700 If slot is full, please schedule the closest open slot. Call to patient needed: no Ortega Morrissey APRN.CNP 10/12/2023 4:10 PM Signed The following approved medication requests have been transmitted electronically. Requested Prescriptions Signed Prescriptions Disp Refills Choriogonadotropin Pam,HumRec (OVIDREL) 250 mcg/0.5 mL syrg 0.5 mL 1 Sig: Inject 250 mcg subcutaneously one time only for 1 dose. Authorizing Provider: ORTEGA MORRISSEY APRN.CNP October 12, 2023 4:10 PM Allergies As of Date: 10/12/2023 (No Known Allergies) Date Reviewed: 08/18/2023 Reviewed by: Cruz Prescott MA - Fully Assessed Reason for Visit: Ortega bownes today/re day 11-13 for iui [Other] Primary Visit Diagnosis:Procreation management investigation and testing [Z31.49] Order(s):Choriogonado tropin Pam,HumRec (OVIDREL) 250 mcg/0.5 mL syrgInject 250 mcg subcutaneously one time only for 1 dose.Disp: 0.5 mLRfl: 1 Prescriptions as of 10/12/2023 - Choriogonadotropin Pam,HumRec (OVIDREL) 250 mcg/0.5 mL syrg Inject 250 mcg subcutaneously one time only for 1 dose. - medroxyPROGESTERone (PROVERA) 10 mg tablet Take 1 tablet by mouth once daily. - letrozole (FEMARA) 2.5 mg tablet Take 2 tablets by mouth once daily for 5 days. Menstrual cycle day 3-7 - PNV no.95/ferrous fum/folic ac ( ORAL) Take 1 tablet by mouth once daily. - metFORMIN ER (GLUCOPHAGE XR) 500 mg 24 hr tablet Take 3 tablets by mouth daily with breakfast. Start with 1 tablet daily and slowly increase the dose up to 3 tablets daily. - medroxyPROGESTERone (PROVERA) 10 mg tablet Take 1 tablet by mouth once daily for 10 days. 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 Encounter Status:Closed by ORTEGA MORRISSEY on 10/12/23 Normal [facility] B-HCG SerPl-aCncon HCG.beta subunit Qn m[IU]/mL Normal <5.0 [facility] Comment on above: Order Comment: Speci men Type: BLOOD SPECIMENOrdering Facility: [facility] Address: [address] [place] [address] Result Comment: Rich ball Performed By: #### 2 1198-7 ####[facility] [id number] [place] [address] [place] C. trachomatis+N. gonorrhoea e DNA JANESSA+probe Ql (Unsp spec)on 09-13-2023 C. trachomatis rRNA JANESSA+probe Ql (Unsp spec) Negative Normal Negative for Chlamydia trachomatis by amplificaton [facility] Comment on above: Order Comment: Speci men Type: URINE SPECIMENOrdering Facility: [facility] Address: [address] [place] [address] Performed By: #### 3 6902-5 ####[facility] [id number] [place] [address] [place] N. gonorrhoeae rRNA JANESSA+probe Ql (Unsp spec) Negative Normal Negative for Neisseria gonorrhoeae by amplification [facility] Comment on above: Order Comment: Speci men Type: URINE SPECIMENOrdering Facility: [facility] Address: [address] [place] [address] Performed By: #### 3 6902-5 ####[facility] [id number] [place] [address] [place] HBV surface Ag Ser Qlon 08-27 HBV surface Ag Ql (S) Negative Normal Negative [facility] Comment on above: Order Comment: Speci men Type: BLOOD SPECIMENOrdering Facility: [facility] Address: [address] [place] [address] Performed By: #### 3 1201-7, 01474-0, 5195-3 ####[facility] LABCLIA [id number] [place] [address] [place] HCV Ab Ser Qlon 09-13-2023 HCV Ab Ql (S) Negative Normal Negative [facility] Comment on above: Order Comment: Speci men Type: BLOOD SPECIMENOrdering Facility: [facility] Address: [address] [place] [address] Result Comment: The result suggests no evidence of active infection with Hepatitis C virus. Should recent infection be suspected, repeat testing may be considered 4-6 weeks after this draw. Performed By: #### 1 6128-1 ####[facility] LABCLIA [id number] [place] [address] [place] HIV 1+2 Ab IA Qlon HIV 1 and 2 Ab IA.rapid Nom (S/P/Bld) Normal [facility] Comment on above: Order Comment: Speci men Type: BLOOD SPECIMENOrdering Facility: [facility] Address: [address] [place] [address] Result Comment: Test not indicated. Performed By: #### 3 1201-7, 14527-5, 5195-3 ####[facility]CL[facility] [id number] [place] [address] [place] HIV 1+2 Ab+HIV1 p24 Ag IA Ql Non-Reactive Normal Nonreactive [facility] Comment on above: Order Comment: Speci men Type: BLOOD SPECIMENOrdering Facility: [facility] Address: [address] [place] [address] Performed By: #### 3 1201-7, 99088-4, 5195-3 ####[facility] LABCLIA [id number] [place] [address] [place] HIV immunoassay testing algorithm interpretation (S/P/Bld) [Interp] Normal [facility] Comment on above: Order Comment: Speci men Type: BLOOD SPECIMENOrdering Facility: [facility] Address: [address] [place] [address] Result Comment: No e vidence of HIV-1 or HIV-2 infection. Should recent infection be suspected, repeat testing may be considered 2-3 weeks after this draw. [place] Rev. Code 3701.243(E): This information has been disclosed to you from confidential records protected from disclosure by state law. ???You shall make no further disclosure of this information without the specific, written, and informed release of the individual to whom it pertains or as otherwise permitted by state law. A general authorization for the release of medical or other information is not sufficient for the purpose of the release of HIV test results or diagnoses. Performed By: #### 3 1201-7, 80010-6, 5195-3 ####[facility] LABCLIA [id number] [place] [address] [place] Progest SerPl-mCncon 024 Progesterone [Mass/Vol] 0.3 ng/mL Normal See comment [facility] Comment on above: Order Comment: Speci men Type: BLOOD SPECIMENOrdering Facility: [facility] Address: [address] [place] [address] Result Comment: Mens trual Cycle Progesterone Reference Ranges: Follicular: <1.0 ng/mL Ovulation: <12.1 ng/mL Luteal: 1.8 to 23.9 ng/mL. Progesterone Reference Ranges vary by gestational period: First Trimester: 11.0 to 44.3 ng/mL Second Trimester: 25.4 to 83.3 ng/mL Third Trimester: 58.7 to 214 ng/mL Post menopausal Progesterone: <0.5 ng/mL Reference: 1. Progesterone (Progesterone III) [package insert V 1.0 Cam[place]onian]. [facility], [place], [place]. December 2014. Performed By: #### 2 839-9 ####[facility] LABCLIA [id number] [place] [address] [place] Reagin and Treponema pallidu m IgG and IgM [Interp]on 09-13-2023 T. pallidum IgG+IgM IA Ql (S) Non-Reactive Normal Nonreactive [facility] Comment on above: Order Comment: Speci men Type: BLOOD SPECIMENOrdering Facility: [facility] Address: [address] [place], [place] [address] [address] Performed By: #### 3 1201-7, 97420-2, 5195-3 ####[facility] LABCLIA [id number] [place] [address] [place] Reagin+T pallidum IgG+IgM Se rPl-Impon 09-13-2023 Reagin and Treponema pallidum IgG and IgM [Interp] Cannot exclude recent Treponemal infection if specimen collected within 7-10 days after appearance of suspect lesions or 2-3 weeks after an exposure. Clinical correlation is required. Normal [facility] Comment on above: Order Comment: Speci men Type: BLOOD SPECIMENOrdering Facility: [facility] Address: [address] [place] [address] Performed By: #### 3 1201-7, 13333-5, 5195-3 ####[facility] LABCLIA [id number] [place] [id number] [place] CNPAlissa 09-08-2023 CNPN Telephone (REIBD) LISSA RIVAS ([id number]) 1995 F Date Time Provider Department 09/08/23 FEDE HAIRSTON During your visit today, we recorded the following information about you: Ortega Spivey 09/08/2023 9:58 AM Signed Iui Patient called in regards to her lab results Randee Myers, RN 09/09/2023 8:25 AM Signed Called the patient she verified her name and date of last period was July 23 took no fertility meds that cycle had labs done they are neg. I advised we will send provera to get her period started I advised to call with her period so we can set up a monitored cycle I advised she also needs nurse teach for IUI Randee Myers RN September 09, 2023 8:24 AM Latest Ref Rng 09/02/2023 Progesterone See comment ng/mL 0.2 hCG Quantitative, Blood <5.0 mIU/mL <0.6 Ortega Morrissey APRN.CNM 09/09/2023 9:07 AM Signed The following approved medication requests have been transmitted electronically. Requested Prescriptions Signed Prescriptions Disp Refills medroxyPROGESTERone (PROVERA) 10 mg tablet 10 tablet 0 Sig: Take 1 tablet by mouth once daily. Authorizing Provider: ORETGA MORRISSEY APRN.CNM September 09, 2023 9:07 AM Allergies As of Date: 09/08/2023 (No Known Allergies) Date Reviewed: 08/18/2023 Reviewed by: Cruz Prescott MA - Fully Assessed Reason for Visit: Patient Question [1477] Primary Visit Diagnosis:Secondary amenorrhea [N91.1] Order(s):medroxyPROGE STERone (PROVERA) 10 mg tabletTake 1 tablet by mouth once daily.Disp: 10 tabletRfl: 0 Prescriptions as of 09/09/2023 - medroxyPROGESTERone (PROVERA) 10 mg tablet Take 1 tablet by mouth once daily. - letrozole (FEMARA) 2.5 mg tablet Take 2 tablets by mouth once daily for 5 days. Menstrual cycle day 3-7 - PNV no.95/ferrous fum/folic ac ( ORAL) Take 1 tablet by mouth once daily. - metFORMIN ER (GLUCOPHAGE XR) 500 mg 24 hr tablet Take 3 tablets by mouth daily with breakfast. Start with 1 tablet daily and slowly increase the dose up to 3 tablets daily. - medroxyPROGESTERone (PROVERA) 10 mg tablet Take 1 tablet by mouth once daily for 10 days. 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 Encounter Status:Closed by ORTEGA MORRISSEY on 09/09/23 Normal [facility] B-HCG SerPl-aCncon 4 HCG.beta subunit Qn m[IU]/mL Normal <5.0 [facility] Comment on above: Order Comment: Speci men Type: BLOOD SPECIMENOrdering Facility: [facility] Address: [address] [place] [address] Result Comment: Rich ball Performed By: #### 2 1198-7 ####[facility] LABCLIA [id number] [place] [address] [place] Alexandra 09-02-2023 CNPN Telephone (REIBD) LISSA RIVAS ([id number]) 1995 F Date Time Provider Department 09/02/23 FEDE HAIRSTON During your visit today, we recorded the following information about you: Ayanna Wise 09/02/2023 10:53 AM Signed Please follow up with patient. Amparo Mcclellan RN 09/02/2023 11:43 AM Signed Returned patient call. Patient LMP was 07/24/23. Typical cycles are 38-42 days. Per patient had light spotting for 1.5 days (August 22 AND part day August 23). Patient has tested for 2x, last week and this week, with negative result. Let patient know I would forwrad her chart to our APPs to review and that someone would be in touch with a plan. Patient appreciative and has no further questions at this time. Amparo Mcclellan RN September 02, 2023 11:41 AM Amparo Mcclellan RN 09/02/2023 1:11 PM Signed Returned patient call to number listed. Left VM for patient with plan to get a P4 AND hCG level complete. Pt instructed to go to any [facility] site to complete and that once the labs result, someone will be in contact to discuss results. Patient instructed to call office with any further questions or concerns. Amparo Mcclellan RN September 02, 2023 1:11 PM Allergies As of Date: 09/02/2023 (No Known Allergies) Date Reviewed: 08/18/2023 Reviewed by: Cruz Prescott MA - Fully Assessed Reason for Visit: lmp 07/23 no cycle since then [Other] Primary Visit Diagnosis:Secondary amenorrhea [N91.1] Order(s):PROGESTERONE [SQPROG] Order #: [id number] FUTURE HCG QUANTITATIVE [SQHCGQT] Order #: [id number] FUTURE Prescriptions as of 09/02/2023 - letrozole (FEMARA) 2.5 mg tablet Take 2 tablets by mouth once daily for 5 days. Menstrual cycle day 3-7 - PNV no.95/ferrous fum/folic ac ( ORAL) Take 1 tablet by mouth once daily. - metFORMIN ER (GLUCOPHAGE XR) 500 mg 24 hr tablet Take 3 tablets by mouth daily with breakfast. Start with 1 tablet daily and slowly increase the dose up to 3 tablets daily. - medroxyPROGESTERone (PROVERA) 10 mg tablet Take 1 tablet by mouth once daily for 10 days. 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 Progesterone Reference Ranges vary by gestational period: First Trimester: 11.0 to 44.3 ng/mL Second Trimester: 25.4 to 83.3 ng/mL Third Trimester: 58.7 to 214 ng/mL Post menopausal Progesterone: <0.5 ng/mL Reference: 1. Progesterone (Progesterone III) [package insert V 1.0 Cam[place]onian]. [facility], [place], [place]. December 2014. Performed By: #### 2 839-9 ####[facility] LABCLIA [id number] [address] [place] 08-19-2023 HNO ID: [id number] Author: FEDE HAIRSTON MD Service: ? Author Type: Physician Type: Filed: 08/19/2023 11:12 Note Text: Patient indicated that her period still q 38-45 days despite on letrozole 5 mg. Will get day 21 prog done again this cycle. She somehow was told that she cannot get refills on higher dose of letrozole despite she only took it for 2 months. I apologize to the pt for this. Nevertheless, she only miss 1 cycle. If P4 normal, I discuss continue letrozole for 2-3 more months along or adding IUI now. She will let us know what she decides to do. Pt aware that she needs to meet with [facility] for IUI teach. GAYATHRI IUI Treatment Plan: Patient summary: Tubal Patency Testing: HSG date: 2023 bilat tubal patency. Sperm Source:Partner Frozen Treatment Protocol: Letrozole dose 5 mg Monitoring Plan: Ultrasound monitoring CD 10-12 Ovidrel Trigger: Yes Supplemental Progesterone: Prometrium 200 mg per vagina daily Comments: None Kim Khan MD 08/19/2023 Normal [facility] CONSULT PROGon 08-19-2023 CONSULT PROG HNO ID: [id number] Author: FEDE HAIRSTON MD Service: ? Author Type: Physician Type: Consult Progress Note Filed: 08/19/2023 11:12 Note Text: [facility] Date: 08/19/2023 Consultation Requested By: self Lissa Rivas is a 28 year old female presenting with the following history: HISTORY OF PRESENT ILLNESS: Lissa Rivas is a 28 year old female with August 18, 2023: Follow up PCOS, anovulatory infertility. S/p 3 cycles of Letrozole, cycle 34-42 days. Normal HSG. Partner had SA - told it was normal. Saw cancer genetic team 03/2023. Previous encounter on 04/07/2023: Pt is here for follow up. 1. PCOS - not respond to letrozole 2.5 mg. Dosed increase to 5 mg recently and she will get the prog done again on CD 21. 2. Elevated LFT - work up are all negative. Her PCP will repeat her LFT again in a few months. 3. Rubella non-immune. Patient aware. She will get the vaccine at the local pharmacy. She aware that she should not TTC for 30 days after taking the injection. 4. She has an appointment with cancer genetic team soon. 5. [facility] - test neg for all mutations. Initial consult note on 01/04/2023: TTC January 2022. Has not used ocp since teenager. Was seen med endo for PCOS and placed on metformin. She self discontinue metformin last year and period never return. Using condoms prior Hx of PCOS diagnosed in 2019 through ultrasound and c/o abnormal hair growth, cycles usually q 3 months but has not had a cycle since Dec 2021 Has been spotting for 40+ days Using [facility] to track cycles, tried OPK for a few months but never has gotten a positive Treated for Chlamydia at age 16 healthy, non-smoker; no established pregnancies. Irregular period, hirsutism, ultrasound showed PCO appearing ovaries. Obstetric History T0 L0 SAB0 IAB0 Ectopic0 Multiple0 Live Births0 Fertility Evaluations and Treatments: Eval Checklist Results Date Comments HSG Normal 07/29/2023 Hysteroscopy Laparoscopy OPK (Ovulation Predictor Kit) Ovarian [place] [facility]H 10.91 High 01/04/2023 Saline Ultrasound Semen Analysis Normal 08/10/2023 Ultrasound Abnormal polycystic ovaries, otherwise normal 02/08/2023 Other (See comments) MENSTRUAL HISTORY: Menarche Age: 12 Length of Cycle: 34-42 days with Letrozole Irregular Days: 4-5 Menstrual Flow: Menstrual Symptoms: Patient's last menstrual period was 07/24/2023 (exact date). 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 Obesity due to excess calories PCOS (polycystic ovarian syndrome) Seasonal allergies PAST SURGICAL HISTORY Procedure Laterality Date EYE SURGERY HX 03/2020 [facility] FAMILY HISTORY Problem Relation Age of Onset Hypertension Mother Asthma Father Diabetes Father Heart disease Father Stroke Father Kidney Disease Father Arrhythmia Father Atrial fibrillation COPD Father Hypertension Father Hyperlipidemia Father Arrhythmia Half-sister Atrial fibrillation Breast Cancer Maternal Grandmother 40 - 49 Arthritis Paternal Grandmother Stroke Paternal Grandmother COPD Paternal Grandmother Arrhythmia Paternal Grandmother Atrial fibrillation Heart disease Paternal Grandmother Diabetes Paternal Grandmother Prostate Cancer Maternal Uncle 40 - 49 metastatic Lung Cancer Maternal Uncle 45 - 49 Breast Cancer Maternal great-grandmother Breast Cancer Maternal Aunt 45 GENETIC HISTORY: no OCCUPATION/EXERCISE: Occupation: [employer] / [employer] Exercise: daily walking Partner Information Partner's Name: Brenton Rivas Partner's : 08/07/1993 Partner's Partner's Ethnicity: NOT or Partner's Race: White Occupation: [employer] / [employer] Legally ?: Yes Years together: together in 2013 Do they have children together?: No Any other Previous Pregnancies?: No Smoking History: Never Use of alchol: social use Use of Drugs: none Medications: none Pertinent Medical Hx: none Pertinent Surgical Hx: EGD Pertinent Genetic Hx: none MEDICATIONS: Current Outpatient Medications on File Prior to Visit Medication Sig PNV no.95/ferrous fum/folic ac ( ORAL) Take 1 tablet by mouth once daily. metFORMIN ER (GLUCOPHAGE XR) 500 mg 24 hr tablet Take 3 tablets by mouth daily with breakfast. Start with 1 tablet daily and slowly increase the dose up to 3 tablets daily. (Patient taking differently: Take 1,000 mg by mouth daily with breakfast. Start with 1 tablet daily and slowly increase the dose up to 3 tablets daily.) medroxyPROGESTERone (PROVERA) 10 mg tablet Take 1 tablet by mouth once daily for 10 days. (Patient not taking: Reported on (more content not included)... Normal [facility] CNOVon 08-17-2023 CNOV Office Visit (OTMNCA ) LISSA RIVAS ([id number]) 1995 F Date Time Provider Department 08/17/23 11:00 AM МАРИЯ LABOY OTNATAN During your visit today, we recorded the following information about you: Raina Samuels, STAR 08/17/2023 10:48 AM Signed Tobacco Use: Never Was smoking cessation packet given? N/A - Patient is a non-smoker or quit >1 year ago. Was a referral initiated?N/A Patient is a non-smoker Мария Laboy MD 08/23/2023 3:57 PM Signed CC: Patient presents with: New Patient: SHDA ref by Fina Tate Consultation requested by Dr. Gallagher for an opinion regarding SDHA mutation. My final recommendations will be communicated back to the requesting physician by way of shared medical record or letter via US mail HPI: Lissa Rivas is a 28 year old female with PMH significant for SDHA mutation, found on genetic testing while trying for , who presents to [facility] care. 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 Patient does report having spontaneous episodes of feeling like her heart is racing, anxiety, and feeling flushed at times. Most recent metanephrines and imaging negative. Patient denies any dysphagia, pain in the head/neck, or previous history of head AND neck surgery. ALLERGIES No Known Allergies Current Outpatient Medications on File Prior to Visit Medication Sig metFORMIN ER (GLUCOPHAGE XR) 500 mg 24 hr tablet Take 3 tablets by mouth daily with breakfast. Start with 1 tablet daily and slowly increase the dose up to 3 tablets daily. letrozole (FEMARA) 2.5 mg tablet Take 2 tablets by mouth once daily. Take day 3-7 of her cycle (Patient not taking: Reported on 08/17/2023) PNV no.95/ferrous fum/folic ac ( ORAL) Take 1 tablet by mouth once daily. (Patient not taking: Reported on 08/17/2023) medroxyPROGESTERone (PROVERA) 10 mg tablet Take 1 tablet by mouth once daily for 10 days. No current facility-administered medications on file prior to visit. 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 GENERAL: No weight loss, malaise or fevers. HEENT: Negative for frequent or significant headaches, No changes in hearing or vision, no nose bleeds or other nasal problems NECK: Negative for goiter, pain or significant neck swelling RESPIRATORY: Negative for cough, hemoptysis, wheezing, COPD, dyspnea or shortness of breath CARDIOVASCULAR: Negative for chest pain, leg swelling, hypertension, CHF or palpitations The remainder of the review of systems is negative. PHYSICAL EXAM (detailed): Constitutional: * LMP 03/29/2023 * General appearance: Well developed, well nourished female without obvious deformities. Patient has a normal body habitus and is well groomed. * Communication: The patient speaks with a normal voice without hoarseness or breaks in speech. Head and Face: * Overall appearance: No evident asymetries, obvious scars, lesions or masses. Palpation of face did not reveal any sinus tenderness. * Parotid and submandibular glands: No masses, tenderness or swelling. * Facial strength: House-Brackmann 1/6 bilaterally. Eyes: * Extraocular movements are intact bilaterally and primary gaze alignment is normal. * No evidence of ectropion present. Ears, Nose, Mouth and Throat: * External ears and nose: Normal in appearance, without scars, lesions, or masses. * Ears: Otoscopic examination demonstrates external auditory canals are normal bilaterally. The tympanic membranes are intact and mobile to pneumotoscopy bilaterally. * Nasal exam: Nasal mucosa is pink and the septum is midline, visualized turbinates are normal in appearance. * Mastication: The teeth appear healthy, and the lips and gums are without lesions. * Oral cavity and oropharynx: The oral mucosa, hard and soft palates, tongue, tonsil area, and posterior pharyngeal mucosa are without lesions or notable assymetries. Moist mucus membranes present. Neck: * Neck: The neck appears symmetric without scars, and on palpation is without masses, lymphadenopathy or crepitus. Trachea is midline. * Thyroid: There are no masses (more content not included)... Normal [facility] CNOV Office Visit (ENDOMN ) LISSA RIVAS ([id number]) 1995 F Date Time Provider Department 08/17/23 10:00 AM MIRTA GALLAGHER During your visit today, we recorded the following information about you: Pulse Blood pressure Weight 73/minute 129/79 104.1 kg Cat Avilaflorinda Latosha, MA 08/17/2023 9:53 AM Signed Thank you for choosing the [facility] Department of Endocrinology, Diabetes and Metabolism. Did you know that you need to call 48 hours in advance of your scheduled visit, if you are unable to make your appointment? The Endocrinology and Metabolism [place] thanks you for your commitment, because patients not showing to their appointment results in a lost opportunity for patients to receive [facility] health care at the [facility]. To Cancel an appointment, please choose one of the following: - Call the Appointment Call Center at [phone] - From [place], Go to Appointments - Cancel Appts If cancelling, consider your need to reschedule to prevent further delays in your care. To Schedule an appointment, please choose one of the following: - Call the Appointment Call Center at [phone] - From [place], Go to Appointments - Request an Appt Mirta Gallagher MD 08/17/2023 10:52 AM Signed DATE: 08/17/2023 ENDOCRINOLOGY OUTPATIENT NOTE Ms. Lissa Rivas is a 28 year old female who presents with SDHA mutation. She had genetic testing which identified a pathogenic variant (mutation) in the gene SDHA, del promoter - exon 9. This indicates that she has the Hereditary Paraganglioma Pheochromocytoma Syndrome. She is trying for and her Ob sent her for breast cancer screening and this came out with the SDHA mutation. Her mother was tested and she has the mutation too. Took three rounds of letrozole so far. had semen analysis and is fine. Periods are regular now after progesterone one round. Menarche at age 13, periods were not regular earlier. Acne: no Hirsutism: on upper lip and she shaves once a week. Mother has hypothyroidism and HTN. Mother is on thyroid medication. From genetics note: SDHA Hereditary Paraganglioma- Pheochromocytoma syndrome Mutations in SDHA are associated with a risk of developing pheochromocytoma (PCC) as well as paraganglioma (PGL) of the abdomen, chest, and head/neck. A pheochromocytoma (aka ?pheo? or PCC) is a type of tumor that develops in the adrenal gland. A PCC is hormonally active and can cause the adrenal gland to produce high levels of catecholamines that may lead to high blood pressure, headaches, heart palpitations, nausea, and/or vomiting. A paraganglioma (PGL) is a tumor that typically arises from hormonally inactive parasympathetic tissue, such as the carotid, vagal, or jugular bodies. They are usually found in the head or neck (HNP) and often do not cause symptoms. Hormonally active extra-adrenal sympathetic PGLs can occur in the chest, abdomen, or pelvis and may cause symptoms similar to a pheochromocytoma. Like PCCs, PGLs are usually benign but can sometimes be malignant. Some individuals with hereditary paraganglioma-pheochr omocytoma syndrome may never develop a PCC or PGL, while others could develop one or multiple PCC or PGL. The age at diagnosis of PCC/PGL in individuals with SDHA mutations is highly variable and the risk of malignancy appears to be low. Most individuals with an SDHA mutation will not develop PCC/PGL - the lifetime risk is estimated at 10%. For those who have had a tumor, there is approximately a 9% risk of subsequent tumor(s). Gastrointestinal stromal tumors (GIST) are rare, typically adult-onset sarcomas that may be either benign or malignant. GIST can develop anywhere along the GI tract, which includes the esophagus, stomach, gallbladder, liver, small intestine, colon, rectum, anus, and lining of the gut. Most SDH-associated GISTs start in the stomach. While GIST occur more frequently in individuals with SDHA mutations compared to those in the general population, the overall risk is still relatively low. For people who have a mutation in SDHA, surveillance options include imaging of the head/neck, chest/abdomen/pelvis region every 2-3 years in addition to blood or urine metanephrine screening every year. Screening is recommended to begin around age 10-15y or earlier based on family history (Angela Ribeiro et al. Joanna Rev Endocrinol. 2020;17(7):435-444). Patient was encouraged to pursue discussions with appropriate care providers in Endocrinology (Dr. Mirta Gallagher) and Otolaryngology (Dr. Мария Laboy) to review medical management options and determine the best plan for her own care. Biallelic SDHA mutations (that is, mutations in both copies of SDHA) cause a rare condition known as Mitochondrial complex II deficiency. This autosomal recessive condition is characterized by neurodegenerat (more content not included)... Normal [facility] No Panel Informationon 08-16 Interpretation and review of laboratory results Normal [facility] T4 FREE/FREE THYROXINEon Free T4 [Mass/Vol] 1.1 ng/dL 0.9 - 1.7 ng/dL [facility] T4 Free SerPl-mCncon 024 Free T4 [Mass/Vol] 1.1 ng/dL Normal 0.9-1.7 [facility] Comment on above: Order Comment: Speci arsen Type: BLOOD SPECIMENOrdering Facility: [facility] Address: [address] [place] [address] Performed By: #### 3 016-3, 3024-7 ####[facility] LABCLIA [id number] [place] [address] [place] THYROID PEROXIDASE ANTIBODYo n 08-17-2023 Interpretation and review of laboratory results Normal [facility] TPO Ab Qn 3.3 [IU]/mL [facility] Comment on above: Thyroid Peroxidase A ntibody test is used as an aid in diagnosis of autoimmune thyroid disease. Clinical correlation is required. [facility] TPO Ab Qn 3.3 [IU]/mL Normal <5.6 [facility] Comment on above: Order Comment: Speci men Type: BLOOD SPECIMENOrdering Facility: [facility] Address: [address] [place] [address] Result Comment: Thyr oid Peroxidase Antibody test is used as an aid in diagnosis of autoimmune thyroid disease. Clinical correlation is required. Performed By: #### M ICRO ####[facility] LABCLIA [id number] [place] [address] [place] THYROID STIMULATING HORMONEo n 08-17-2023 TSH Qn 2.690 m[IU]/L [facility] Comment on above: If the patient is pr egnant, TSH reference range varies by gestational period: First Trimester (weeks 9-12): 0.180-2.990 mIU/L Second Trimester: 0.110-3.980 mIU/L Third Trimester: 0.480-4.710 mIU/L Hang Ribeiro et al. A Practical Approach for the Verifications and Determination of Site- and Trimester-Specific Reference Intervals for Thyroid Function tests in . Thyroid, 2019:29:3:412-420. Samuel Gerber et al. 2017 Guidelines of the [place] Thy[employer] Association for the Diagnosis and Management of Thyroid Disease during and the . Thyroid, 2017:27:3:315-389. TSH SerPl-aCncon 08-17-2023 TSH Qn 2.690 m[IU]/L Normal 0.270-4.200 [facility] Comment on above: Order Comment: Speci men Type: BLOOD SPECIMENOrdering Facility: [facility] Address: [address] [place] [address] Result Comment: If t he patient is , TSH reference range varies by gestational period: First Trimester (weeks 9-12): 0.180-2.990 mIU/L Second Trimester: 0.110-3.980 mIU/L Third Trimester: 0.480-4.710 mIU/L Hang Ribeiro et al. A Practical Approach for the Verifications and Determination of Site- and Trimester-Specific Reference Intervals for Thyroid Function tests in . Thyroid, 2019:29:3:412-420. Samuel Gerber et al. 2017 Guidelines of the [place] Thy[employer] Association for the Diagnosis and Management of Thyroid Disease during and the . Thyroid, 2017:27:3:315-389. Performed By: #### 3 016-3, 3024-7 ####[facility] LABCLIA [id number] [address] OF [facility] CNNURSEon 07-29-2023 CNNURSE Nurse Visit (REIAV) LISSA RIVAS ([id number]) 1995 F Date Time Provider Department 07/29/23 12:45 PM NURSE GAYATHRI [facility] GRETA TOMLINSON During your visit today, we recorded the following information about you: Allergies As of Date: 07/29/2023 (No Known Allergies) Date Reviewed: 06/23/2023 Reviewed by: Radha Hawkins, RT(R) - Fully Assessed Reason for Visit: Nurse Visit [792] Primary Visit Diagnosis:Encounter for fertility testing [Z31.41] Other Visit Diagnosis:Pre-procedu re lab exam [Z01.812] Order(s):HCG QUAL UR B/O [[id number]] Order #: [id number] Prescriptions as of 07/29/2023 - letrozole (FEMARA) 2.5 mg tablet Take 2 tablets by mouth once daily. Take day 3-7 of her cycle - PNV no.95/ferrous fum/folic ac ( ORAL) Take 1 tablet by mouth once daily. - metFORMIN ER (GLUCOPHAGE XR) 500 mg 24 hr tablet Take 3 tablets by mouth daily with breakfast. Start with 1 tablet daily and slowly increase the dose up to 3 tablets daily. - medroxyPROGESTERone (PROVERA) 10 mg tablet Take 1 tablet by mouth once daily for 10 days. Problem List As Of Date 07/29/2023 Noted Resolved Seasonal allergies [J30.2] 10/05/2022 Polycystic ovaries [E28.2] 10/05/2022 Obesity due to excess calories [E66.09] 10/05/2022 Menorrhagia [N92.0] 10/05/2022 GERD (gastroesophageal reflux disease) [K21.9] 10/05/2022 Genital herpes simplex [A60.00] 10/05/2022 Generalized anxiety disorder [F41.1] 10/05/2022 Chronic fatigue syndrome [G93.32] 10/05/2022 Encounter Status:Closed by CRUZ PRESCOTT on 07/29/23 Normal [facility] HCG QUAL UR B/Oon 07-29-2023 Interpretation and review of laboratory results Normal [facility] status Negative neg - pos Theresa torres [facility] Quality Check Yes yes/no [facility] XR HYSTEROSALPINGOGRAMon XR HYSTEROSALPINGOGRAM * * *Final Report * * * DATE OF EXAM: Jul 29 2023 2:03PM [facility] 5389 - XR HYSTEROSALPINGOGRAM / PROCEDURE REASON: Fertility testing * * * * Physician Interpretation * * * * CLINICAL: Infertility TECHNIQUE: A hysterosalpingogram was performed in conjunction with the gynecology service. Retrograde filling of the uterus and fallopian tubes were performed by the gynecology service. Fluoroscopic Radiation Summary: Plane A, Air Kerma: 18.5 mGy Dose Area Product (DAP): Fluoro time: 0:17 min:sec RESULT: The uterus is normal in size and contour. No filling defects are seen to suggest scar or mass. There is prompt bilateral filling of the fallopian tubes with spillage of contrast into the peritoneal space consistent with patency of the right the left fallopian tube. There is no evidence of stricture or abnormal dilatation in the right or left fallopian tube. IMPRESSION: Normal hysterosalpingogram. Pot Fluxer: PSCB Transcribe Date/Time: Aug 02 2023 4:22P Dictated by : ADRIANNA BAUMANN MD This examination was interpreted and the report reviewed and electronically signed by: ADRIANNA BAUMANN MD on Aug 02 2023 4:23PM EST [id number] N Normal [facility] CT ABDOMEN W IVCONon 024 CT ABDOMEN W IVCON * * *Final Report* * * DATE OF EXAM: Jun 23 2023 9:14AM [facility] 0533 - CT ABDOMEN W IVCON / PROCEDURE REASON: Intra-abdominal and pelvic swelling, mass and lump, unspecified site * * * * Physician Interpretation * * * * EXAMINATION: CT ABDOMEN WITH IV CONTRAST CLINICAL HISTORY: TECHNIQUE: CT of the abdomen was performed using standard technique, scanning from just above the dome of the diaphragm to the iliac crest. MQ: CTAbdW_4 Contrast: IV: 100 ml of Omnipaque 350 Oral: 450 ml of Omni 240 10-25ml diluted with water CT Radiation dose: Integrated Dose-length product (DLP) for this visit = 1712 mGy*cm. CT Dose Reduction Employed: Automated exposure control(AEC) and iterative recon COMPARISON: None. RESULT: Liver: Steatosis. Biliary: No bile duct dilation. Spleen: No mass. No splenomegaly. Pancreas: No mass or duct dilation. Adrenals:No mass. Kidneys: No mass, calculus or hydronephrosis. GI tract: Miniscule hiatal hernia. No dilation or wall thickening. Normal appendix. Lymph nodes: No abdominal lymphadenopathy. Mesentery/Peritoneum: No ascites or mass. Retroperitoneum: No mass. Vasculature: Abdominal aorta normal in caliber. Bones/Soft Tissues: Small fat-containing umbilical hernia. No destructive osseous lesion. Lower thorax: A chest CT performed will be reported separately. [employer] Operator (topogram) images: No additional findings. IMPRESSION: 1. Hepatic steatosis. 2. No mass, lymphadenopathy or splenomegaly in the abdomen. Pot Fluxer: [facility] Transcribe Date/Time: Jun 23 2023 11:05A Dictated by : NICOLAS NICHOLSON MD This examination was interpreted and the report reviewed and electronically signed by: NICOLAS NICHOLSON MD on Jun 23 2023 11:28AM EST [id number] N Normal [facility] CT CHEST W IVCONon 4 CT CHEST W IVCON * * *Final Report* * * DATE OF EXAM: Jun 23 2023 9:14AM [facility] 0539 - CT CHEST W IVCON / PROCEDURE REASON: Localized enlarged lymph nodes * * * * Physician Interpretation * * * * EXAMINATION: CHEST CT WITH CONTRAST CLINICAL HISTORY: Localized enlarged lymph node Technique: Spiral CT acquisition of the chest from the thoracic inlet to the upper abdomen following IV contrast. MQ: CTCW_6 Contrast: 100 mL Omnipaque [address] Radiation dose: Integrated Dose-length product (DLP) for this visit = 1712 mGy*cm CT Dose Reduction Employed: Automated exposure control(AEC) and iterative recon Comparison: None. RESULT: Limitations: None. Lines, tubes, and devices: None. Lung parenchyma and airways: No consolidation. No suspicious pulmonary nodule. The central airways are patent. Pleural space: No pleural effusion. No pleural thickening. Lower neck, lymph nodes, and mediastinum: The imaged thyroid gland is normal. No lymphadenopathy in the supraclavicular, axillary, mediastinal, or hilar regions. Small hiatus hernia. Heart, pericardium, and thoracic vessels: The thoracic aorta and main pulmonary artery are normal in caliber. The cardiac chambers are normal in size. No coronary artery atherosclerotic calcifications are noted, although the study is not optimized for coronary assessment. No pericardial effusion or thickening. Bones and soft tissues: No destructive bone lesion. Chest wall is unremarkable. Upper abdomen: Dictated separately. [employer] [place] Operator (topogram) images: No additional findings. IMPRESSION: No CT evidence of acute abnormality. Unremarkable chest CT, no findings of enlarged lymph nodes in the thorax. Pot Fluxer: PSCB Transcribe Date/Time: Jun 23 2023 9:13A Dictated by : JANI PACHECO MD This examination was interpreted and the report reviewed and electronically signed by: JANI PACHECO MD on Jun 23 2023 9:16AM EST [id number] N Normal [facility] CT NECK SOFT TISSUE W IVCONo n 06-23-2023 CT NECK SOFT TISSUE W IVCON * * *Final Report* * * DATE OF EXAM: Jun 23 2023 9:14AM [facility] 0013 - CT NECK SOFT TISSUE W IVCON / PROCEDURE REASON: Localized enlarged lymph nodes * * * * Physician Interpretation * * * * EXAMINATION: CT NECK SOFT TISSUE W IVCON HISTORY: Localized enlarged lymph nodes COMPARISON: None. PARAMETERS: Helical scan of the neck from the petrous ridges through the upper mediastinum after administration of intravenous contrast. Contrast: 100 mL Omnipaque [address] Radiation dose: Integrated Dose-Length Product (DLP) for this visit = 1712 mGy*cm. CT Dose Reduction Employed: Automated exposure control(AEC) and iterative recon FINDINGS: CERVICAL SPINE: Slight grade 1 anterolisthesis stepwise from C2 to C5. CERVICAL SOFT TISSUES: The visualized subcutaneous and muscular soft tissues of the neck and upper thorax are unremarkable. INTRACRANIAL: Limited visualization of intracranial structures demonstrates no acute finding. ORBITS: Normal. SINUSES: The paranasal sinuses and mastoid air cells are clear. PHARYNX: The nasopharynx, oropharynx and hypopharynx are normal. ORAL CAVITY: Normal. LARYNX: Normal. LYMPH NODES: No adenopathy is identified in levels I through VII. Scattered nonspecific lymph nodes are visible, demonstrating normal size and architecture. DEEP NECK SPACES: The deep cervical fascial planes, and prevertebral soft tissues are normal. MANDIBLE: No gross bony destructive lesions or dental inflammatory lesions identified. VASCULAR: The carotid arteries and jugular veins demonstrate normal contrast enhancement. There is no evidence for mass within the carotid sheath. MAJOR SALIVARY GLANDS: Morphology, attenuation, and enhancement pattern of the major salivary glands is normal. THYROID: Morphology and enhancement pattern of the thyroid is normal. LUNG APICES AND UPPER MEDIASTINUM: Lung apices are clear. No mediastinal masses are identified. ENHANCEMENT: No abnormal enhancement. IMPRESSION: No evidence for mass or adenopathy in the neck. Pot Fluxer: [facility] Transcribe Date/Time: Jun 23 2023 11:23A Dictated by : SALVADOR GAINES MD This examination was interpreted and the report reviewed and electronically signed by: SALVADOR GAINES MD on Jun 23 2023 11:37AM EST [id number] N Normal [facility] METANEPHRINES, FREE PLASMAon 06-17-2023 METANEPHRINE, PLASMA 37 pg/mL Normal 12-67 [facility] Comment on above: Order Comment: Jarek leger Type: BLOOD SPECIMENOrdering Facility: [facility] Address: [address] [place] [address] Result Comment: Refe rence Ranges: Hypertensive adult > or = 18 yrs old: 12-72 pg/mL Normotensive adult > or = 18 yrs old: 12-67 pg/mL Normotensive children < 18 yrs old: 10-95 pg/mL Performed By: #### P METAN ####[facility] LABCLIA [id number] [facility] [id number] [place] [address] STATES OF [facility] NORMETANEPHRINE, PLASMA 67 pg/mL Normal 18-101 [facility] Comment on above: Order Comment: Jarek leger Type: BLOOD SPECIMENOrdering Facility: [facility] Address: [address] [place] [address] Result Comment: Refe rence Ranges: Hypertensive adult > or = 18 yrs old: 24-145 pg/mL Normotensive adult > or = 18 yrs old: 18-101 pg/mL Normotensive children < 18 yrs old: 22-83 pg/mL Methyldopa may cause false elevation of normetanephrine levels in this assay. If patient is on methyldopa, interpret results with caution. Performed By: #### P METAN ####[facility] LABCAMPOS [id number] [address] [place] CNPAlissa 06-16-2023 CNPN Telephone (VAISHNAVI) LISSA RIVAS ([id number]) 1995 F Date Time Provider Department 06/16/23 FINA LIZAMA During your visit today, we recorded the following information about you: Fina Lizama LGC 06/16/2023 4:27 PM Signed Spoke with patient regarding screening for paraganglioma prior to . 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 Patient would like baseline screening for paraganglioma prior to planned , but is also not interested in delaying infertility treatments. Discussed getting plasma metanephrines and baseline CTs. Patient understands she cannot have CTs during . Will coordinate consults with Dr. Mirta Gallagher and Dr. Мария Laboy. Patient will be updated via Oculus VR when orders are placed for imaging. 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 Neck W IVCON No IV access, insert saline lock prior to the sedation, infusion, injection for imaging exam. Discontinue saline lock post exam. If Pt. has a central line or IVAD, may access for administration according to line specific nursing protocol. Once exam is complete flush line and de-access according to line specific nursing protocol in the CT contrast administration guidelines link.Disp: 1 EachRfl: 0 CT CHEST W IVCON [[id number]] Order #: [id number] FUTURE CT ABDOMEN W IVCON [[id number]] Order #: [id number] FUTURE Prescriptions as of 06/16/2023 - iv contrast (will be provided with radiology test) Inject 1 Each intravenously one time only for [address] Neck W IVCON No IV access, insert saline lock prior to the sedation, infusion, injection for imaging exam. Discontinue saline lock post exam. If Pt. has a central line or IVAD, may access for administration according to line specific nursing protocol. Once exam is complete flush line and de-access according to line specific nursing protocol in the CT contrast administration guidelines link. - letrozole (FEMARA) 2.5 mg tablet Take 2 tablets by mouth once daily. Take day 3-7 of her cycle - PNV no.95/ferrous fum/folic ac ( ORAL) Take 1 tablet by mouth once daily. - metFORMIN ER (GLUCOPHAGE XR) 500 mg 24 hr tablet Take 3 tablets by mouth daily with breakfast. Start with 1 tablet daily and slowly increase the dose up to 3 tablets daily. - medroxyPROGESTERone (PROVERA) 10 mg tablet Take 1 tablet by mouth once daily for 10 days. Problem List As Of Date 06/16/2023 Noted Resolved Seasonal allergies [J30.2] 10/05/2022 Polycystic ovaries [E28.2] 10/05/2022 Obesity due to excess calories [E66.09] 10/05/2022 Menorrhagia [N92.0] 10/05/2022 GERD (gastroesophageal reflux disease) [K21.9] 10/05/2022 Genital herpes simplex [A60.00] 10/05/2022 Generalized anxiety disorder [F41.1] 10/05/2022 Chronic fatigue syndrome [G93.32] 10/05/2022 Prescriptions ordered this encounter Disp Refills Start End IV CONTRAST (RADIOLOGY PROCEDURE) 1 Ea* 0 06/16/2023 06/16/2023 Class: In Office Route: INTRAVENOUS Sig: Inject 1 Each intravenously one time only for [address] Neck W IVCON No IV access, insert saline lock prior to the sedation, infusion, injection for imaging exam. Discontinue saline lock post exam. If Pt. has a central line or IVAD, may access for administration according to line specific nursing protocol. Once exam is complete flush line and de-access according to line specific nursing protocol in the CT contrast administration guidelines link. Encounter Status:Closed by FINA LIZAMA on 06/16/23 [facility] LISSA RIVAS ([id number]) 1995 F Date Time Provider Department 06/10/23 ELSA PUENTES [facility] During your visit today, we recorded the following information about you: Elsa Puentes LGC 06/14/2023 1:38 PM Addendum Patient name and was confirmed at initiation of discussion. Lissa Rivas's Integrated BRACAnalysis with Humberto through [employer] was positive for a pathogenic variant in SDHA, del promoter - exon 9. 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 SDHA Hereditary Paraganglioma- Pheochromocytoma syndrome Mutations in SDHA are associated with a risk of developing pheochromocytoma (PCC) as well as paraganglioma (PGL) of the abdomen, chest, and head/neck. A pheochromocytoma (aka ?pheo? or PCC) is a type of tumor that develops in the adrenal gland. A PCC is hormonally active and can cause the adrenal gland to produce high levels of catecholamines that may lead to high blood pressure, headaches, heart palpitations, nausea, and/or vomiting. A paraganglioma (PGL) is a tumor that typically arises from hormonally inactive parasympathetic tissue, such as the carotid, vagal, or jugular bodies. They are usually found in the head or neck (HNP) and often do not cause symptoms. Hormonally active extra-adrenal sympathetic PGLs can occur in the chest, abdomen, or pelvis and may cause symptoms similar to a pheochromocytoma. Like PCCs, PGLs are usually benign but can sometimes be malignant. Some individuals with hereditary paraganglioma-pheochr omocytoma syndrome may never develop a PCC or PGL, while others could develop one or multiple PCC or PGL. The age at diagnosis of PCC/PGL in individuals with SDHA mutations is highly variable and the risk of malignancy appears to be low. Most individuals with an SDHA mutation will not develop PCC/PGL - the lifetime risk is estimated at 10%. For those who have had a tumor, there is approximately a 9% risk of subsequent tumor(s). Gastrointestinal stromal tumors (GIST) are rare, typically adult-onset sarcomas that may be either benign or malignant. GIST can develop anywhere along the GI tract, which includes the esophagus, stomach, gallbladder, liver, small intestine, colon, rectum, anus, and lining of the gut. Most SDH-associated GISTs start in the stomach. While GIST occur more frequently in individuals with SDHA mutations compared to those in the general population, the overall risk is still relatively low. For people who have a mutation in SDHA, surveillance options include imaging of the head/neck, chest/abdomen/pelvis region every 2-3 years in addition to blood or urine metanephrine screening every year. Screening is recommended to begin around age 10-15y or earlier based on family history (Angela Ribeiro et al. Joanna Rev Endocrinol. 202;17(7):435-444). Patient was encouraged to pursue discussions with appropriate care providers in Endocrinology (Dr. Mirta Gallagher) and Otolaryngology (Dr. Мария Laboy) to review medical management options and determine the best plan for her own care. Biallelic SDHA mutations (that is, mutations in both copies of SDHA) cause a rare condition known as Mitochondrial complex II deficiency. This autosomal recessive condition is characterized by neurodegeneration and encephalomyopathy. For there to be a risk of this condition in offspring, both parents each have to have a pathogenic variant in SDHA; in such a case, the risk of having an affected child is 25%. Carrier testing for the patient's partner for mutations in SDHA could be considered if it would inform reproductive decision-making and/or risk assessment and management. Variant(s) of uncertain significance (VUS) detected: BRCA2 dup exons 1-3. A VUS is a genetic variant for which insufficient data exists in order to determine if it is associated with disease (deleterious mutation) or is a normal genetic variant which can occur in the population without disease (benign polymorphism). Please see Oculus VR message for further discussion. CHRISTIE Magdaleno Licensed, Certified Genetic Counselor Elsa Puentes LGC 06/14/2023 1:42 PM Signed Patient had questions about impact of testing on their fertility treatments. Discussed the following information after discussing with Sania Lizama CGC. It is a low risk she'd have a functional tumor, but, yes it is generally recommended to r/o a pheo before a planned . Cannot get CTs when . She likely will not get in for a CT all that soon. Patient was wondering how long CT scan would take. She's supposed to start her next dose of medication today, and would be willing to put if off for a month potentially, but not necessarily multiple months. They have decided not to wait for her to get tested to try for children. Elsa (more content not included)... Normal [facility] Alexandra 05-25-2023 LAURA Telephone (REIBD) LISSA RIVAS ([id number]) 1995 F Date Time Provider Department 05/25/23 FEDE HAIRSTON During your visit today, we recorded the following information about you: Ayanna Wise 05/25/2023 9:59 AM Signed Valentin in [facility] pharmacy. Please follow up with patient. Randee Myers RN 05/25/2023 10:06 AM Signed Called the patient she verified her name and date of Patient needs refill of letrozole Has done 3 cycles of letrozole Randee Myers RN May 25, 2023 10:06 AM Ortega Morrissey APRN.CN 05/25/2023 11:17 AM Signed The following approved medication requests have been transmitted electronically. Requested Prescriptions Signed Prescriptions Disp Refills letrozole (FEMARA) 2.5 mg tablet 10 tablet 0 Sig: Take 2 tablets by mouth once daily. Take day 3-7 of her cycle Authorizing Provider: ORTEGA MORRISSEY APRN.CNM May 25, 2023 11:17 AM Allergies As of Date: 05/25/2023 (No Known Allergies) Date Reviewed: 01/04/2023 Reviewed by: Cruz Prescott Ma - Fully Assessed Reason for Visit: refill letrozol/cycle to start in next week [Other] Primary Visit Diagnosis:Procreative management [Z31.9] Order(s):letrozole (FEMARA) 2.5 mg tabletTake 2 tablets by mouth once daily. Take day 3-7 of her cycleDisp: 10 tabletRfl: 0 Prescriptions as of 05/25/2023 - letrozole (FEMARA) 2.5 mg tablet Take 2 tablets by mouth once daily. Take day 3-7 of her cycle - PNV no.95/ferrous fum/folic ac ( ORAL) Take 1 tablet by mouth once daily. - metFORMIN ER (GLUCOPHAGE XR) 500 mg 24 hr tablet Take 3 tablets by mouth daily with breakfast. Start with 1 tablet daily and slowly increase the dose up to 3 tablets daily. - medroxyPROGESTERone (PROVERA) 10 mg tablet Take 1 tablet by mouth once daily for 10 days. Problem List As Of Date 05/25/2023 Noted Resolved Seasonal allergies [J30.2] 10/05/2022 Polycystic ovaries [E28.2] 10/05/2022 Obesity due to excess calories [E66.09] 10/05/2022 Menorrhagia [N92.0] 10/05/2022 GERD (gastroesophageal reflux disease) [K21.9] 10/05/2022 Genital herpes simplex [A60.00] 10/05/2022 Generalized anxiety disorder [F41.1] 10/05/2022 Chronic fatigue syndrome [G93.32] 10/05/2022 Prescriptions ordered this encounter Disp Refills Start End LETROZOLE 2.5 MG TABLET 10 t* 0 05/25/2023 Route: ORAL Sig: Take 2 tablets by mouth once daily. Take day 3-7 of her cycle Medications Discontinued During This Encounter Prescriptions - letrozole (FEMARA) 2.5 mg tablet (Discontinued) Take 2 tablets by mouth once daily. Take day 3-7 of her cycle Encounter Status:Closed by ORTEGA MORRISSEY on 05/25/23 [facility] SEND OUT TST 1on 2023 REFERRAL LAB 1 [facility] Comment on above: Order Comment: Speci men Type: BLOOD SPECIMENOrdering Facility: [facility] Address: [address] [place] [address] Performed By: #### M ISC1 ####NON-INTERFACED REF LABSCLIA SEE SCANNED RESULTS TEST 1 Integrated BRACAnalysis with myRisk Normal [facility] Comment on above: Order Comment: Jarek arsen Type: BLOOD SPECIMENOrdering Facility: [facility] Address: [address] [place] [address] Performed By: #### M ISC1 ####NON-INTERFACED REF LABSCLIA SEE SCANNED RESULTS TEST RESULTS 1 View results in Scanned Documents link when available. [facility] Comment on above: Order Comment: Harmonyi arsen Type: BLOOD SPECIMENOrdering Facility: [facility] Address: [address] [place] [address] Performed By: #### M ISC1 ####NON-INTERFACED REF LABSCLIA SEE SCANNED RESULTS CNPAlissa 04-23-2023 CNPN Telephone ([facility]) LISSA RIVAS ([id number]) 1995 F Date Time Provider Department 04/23/23 ELSA PUENTES During your visit today, we recorded the following information about you: Elsa Puentes [facility] 05/17/2023 11:29 AM Signed Called patient to discuss her mother's genetic testing results. The patient was offered SDHA single gene testing or SDHA gene testing with reflex to Multi-Cancer panel through [facility]. After considering the risks, benefits, and limitations, the patient chose to pursue and provided informed consent for the following testing: SDHA gene analysis with reflex to Multi-Cancer panel through [facility]. The Multi-Cancer Panel includes AIP, ALK, APC, MICHAEL, AXIN2, BAP1, BARD1, BLM, BMPR1A, BRCA1, BRCA2, BRIP1, CDC73, CDH1, CDK4, CDKN1B, CDKN2A, CHEK2, CTNNA1, DICER1, EGFR, EPCAM, FH, FLCN, GREM1, HOXB13, KIT, LZTR1, MAX, MBD4, MEN1, MET, MITF, MLH1, MSH2, MSH3, MSH6, MUTYH, NF1, NF2, NTHL1, PALB2, PDGFRA, PMS2, POLD1, POLE, POT1, DOWFW0M, PTCH1, PTEN, RAD51C, RAD51D, RB1, RET, SDHA, SDHAF2, SDHB, SDHC, SDHD, SMAD4, SMARCA4, SMARCB1, SMARCE1, STK11, SUFU, IEMH120, TP53, TSC1, TSC2, and VHL The Multi-Cancer panel looks at genes associated with cancers of the breast, gynecologic tract (ovarian, uterine/endometrial), gastrointestinal system (colorectal, gastric, pancreatic), endocrine glands (thyroid, parathyroid, pituitary, adrenal glands), genitourinary tract (renal/urinary tract, prostate), skin (melanoma, basal cell carcinoma), and brain/nervous system. AM CHECKING WITH [facility] ABOUT VARIANT BEFORE PROCEEDING, WILL CONTACT PATIENT WHEN READY TO MOVE FORWARD. Elsa Puentes MS, [facility] Licensed, Certified Genetic Counselor Elsa Puentes [facility] 05/17/2023 11:29 AM Signed Spoke to Thao again, confirmed name/. Reviewed information regarding genetic testing. After our discussion, patient provided informed consent for SELF PAY Integrated [facility]ACAnalysis with myRisk and SDHA single site mutation analysis. Order placed today. Tena said the following about the SDHA variant: This SDHA variant would be outside of our reportable range, as we unfortunately do not offer CNV analysis of SDHA at this time. Please let me know if you have any additional questions. Discussed with patient they they cannot detect the familial mutation. Reviewed testing at [facility] as the best option, since we know that they detected this particular mutation in her mother. The patient was offered SDHA single site mutation analysis through [facility] or self pay Integrated [facility]Analysis with [facility] and SDHA single site mutation analysis through [facility]. After considering the risks, benefits, and limitations, the patient chose to pursue and provided informed consent for the following testing: SELF PAY Integrated [facility]Analysis with myRisk and SDHA single site mutation analysis through [facility]. The myRisk panel includes APC, MICHAEL, AXIN2, BAP1, BARD1, BMPR1A, BRCA1, BRCA2, BRIP1, CDH1, CDK4, CDKN2A, CHEK2, CTNNA1, EGFR, EPCAM, FH, FLCN, GREM1, HOXB13, MEN1, MET, MITF, MLH1, MSH2, MSH3, MSH6, MUTYH, NTHL1, PALB2, PMS2, POLD1, POLE, PTEN, RAD51C, RAD51D, RET, SDHA, SDHB, SDHC, SDHD, SMAD4, STK11, TERT, TP53, TSC1, TSC2, and VHL [facility] looks at genes related to inherited breast, ovarian, pancreatic, prostate, colon, uterine, kidney, lung, endocrine, and stomach cancer, as well as inherited colon polyp and melanoma syndromes. We discussed that an NGS panel can rarely result in an unexpected finding which may or may not be related to the presenting phenotype. We discussed that [employer] may contact the patient by text or phone call regarding billing. The patient should watch for this communication and respond promptly. The patient should contact [facility] [employer] directly with any billing questions (ph. [phone]). Elsa Puentes MS, [facility] Licensed, Certified Genetic Counselor Allergies As of Date: 04/23/2023 (No Known Allergies) Date Reviewed: 01/04/2023 Reviewed by: Cruz Prescott Ma - Fully Assessed Reason for Visit: Follow Up [171] Primary Visit Diagnosis:Family history of cancer [Z80.9] Other Visit Diagnosis:Family history of gene mutation [Z84.81] Order(s):[facility] SEND OUT TST 1 [SQMISC1] Order #: [id number] FUTURE Prescriptions as of 05/17/2023 - letrozole (FEMARA) 2.5 mg tablet Take 2 tablets by mouth once daily. Take day 3-7 of her cycle - PNV no.95/ferrous fum/folic ac ( ORAL) Take 1 tablet by mouth once daily. - metFORMIN ER (GLUCOPHAGE XR) 500 mg 24 hr tablet Take 3 tablets by mouth daily with breakfast. Start with 1 tablet daily and slowly increase the dose up to 3 tablets daily. - medroxyPROGESTERone (PROVERA) 10 mg tablet Take 1 tablet by mouth once daily for 10 days. Problem List As Of Date 04/23/2023 No (more content not included)... Normal [facility] Progest [facility] 024 Progesterone [Mass/Vol] 4.8 ng/mL Normal See comment [facility] Comment on above: Order Comment: Speci men Type: BLOOD SPECIMENOrdering Facility: [facility] Address: [address] [place] [address] Result Comment: Mens trual Cycle Progesterone Reference Ranges: Follicular: <1.0 ng/mL Ovulation: <12.1 ng/mL Luteal: 1.8 to 23.9 ng/mL. Progesterone Reference Ranges vary by gestational period: First Trimester: 11.0 to 44.3 ng/mL Second Trimester: 25.4 to 83.3 ng/mL Third Trimester: 58.7 to 214 ng/mL Post menopausal Progesterone: <0.5 ng/mL Reference: 1. Progesterone (Progesterone III) [package insert V 1.0 Cameroonian]. [facility], [place], [place]. December 2014. Performed By: #### 2 [id number] ####[facility] LABCLIA [id number] [facility] [id number] [address] [place] [employer] [place] WHIon 02-08-2023 [facility] Vital Signs Date Time Vital Sign Value Performing Clinician Facility 05-23-2024 16:00-0500 Body height 160 cm Andrew Ferrer DPM Work Phone: [facility] 05-23-2024 16:00-0500 Body mass index (BMI) [Ratio] 38.83 kg/m2 Andrew Ferrer DPM Work Phone: [facility] 05-23-2024 16:00-0500 Body weight 99.43 kg Andrew Ferrer DPM Work Phone: [facility] 03-08-2024 10:25-0500 Body height 160 cm Gabriel Roof DO Work Phone: [facility] 03-08-2024 10:25-0500 Body mass index (BMI) [Ratio] 40.03 kg/m2 Gabriel Roof DO Work Phone: [facility] 03-08-2024 10:25-0500 Body temperature 97.39 [degF] Gabriel Roof DO Work Phone: [facility] 03-08-2024 10:25-0500 Body weight 102.51 kg Gabriel Roof DO Work Phone: [facility] 03-08-2024 10:25-0500 Diastolic blood pressure 90 mm[Hg] Gabriel Roof DO Work Phone: [facility] 03-08-2024 10:25-0500 Systolic blood pressure 128 mm[Hg] Gabriel Roof DO Work Phone: [facility] 02-15-2024 15:12-0500 Body height 160 cm Robles Goldsmith DO Work Phone: [facility] 02-15-2024 15:12-0500 Body mass index (BMI) [Ratio] 38.26 kg/m2 Robles Goldsmith DO Work Phone: [facility] 02-15-2024 15:12-0500 Body weight 97.98 kg Robles Goldsmith DO Work Phone: [facility] 02-15-2024 15:12-0500 Diastolic blood pressure 84 mm[Hg] Robles Goldsmith DO Work Phone: [facility] 02-15-2024 15:12-0500 Systolic blood pressure 136 mm[Hg] Robles Goldsmith DO Work Phone: [facility] 08-17-2023 10:02-0400 Body mass index (BMI) [Ratio] 40.65 kg/m2 Mirta Gallagher MD Work Phone: [facility] 08-17-2023 10:02-0400 Body weight 104.1 kg Mirta Gallagher MD Work Phone: [facility] 08-17-2023 10:02-0400 Diastolic blood pressure 79 mm[Hg] Mirta Gallagher MD Work Phone: [facility] 08-17-2023 10:02-0400 Heart rate 73 /min Mirta Gallagher MD Work Phone: [facility] 08-17-2023 10:02-0400 Systolic blood pressure 129 mm[Hg] Mirta Gallagher MD Work Phone: [facility] 06-26-2022 19:10-0400 Body height 157.48 cm Josefina Kay Other [facility] Other 06-26-2022 19:10-0400 Body mass index (BMI) [Ratio] 40.64 kg/m2 Josefina Kay Other [facility] Other 06-26-2022 19:10-0400 Body weight 100.79 kg Josefina Kay Other [facility] Other 06-26-2022 19:10-0400 Diastolic blood pressure 87 mm[Hg] Josefina Kay Other [facility] Other 06-26-2022 19:10-0400 Respiratory rate 18 /min Josefina Kay Other [facility] Other 06-26-2022 19:10-0400 SaO2% (BldA) [Mass fraction] 98 % Josefina Kay Other [facility] Other 06-26-2022 19:10-0400 Systolic blood pressure 132 mm[Hg] Josefina Kay Other [facility] Other Encounters Encounter Date Encounter Type Care Provider Facility Start: 05-23-2024 End: 05-23-2024 Office outpatient new 30 minutes Andrew Ferrer DPM Work Phone: [facility] Comment on above: Onychomycosis (Prima ry Dx); Onychodystrophy; Xerosis cutis; Fissure in skin of both feet Start: 05-23-2024 End: 05-23-2024 ambulatory ANDREW FERRER Not Available Start: 05-23-2024 End: 05-24-2024 Clinisync Result Encounter Generic External Data Provider [facility] External [facility] Unsolicited Start: 05-23-2024 End: 05-24-2024 Clinisync Result Encounter Generic External Data Provider [facility] External Department Unsolicited Start: 05-22-2024 End: 05-22-2024 Bamboo flowsheet Saravanan Zita DO Work Phone: [facility] Start: 05-22-2024 End: 05-22-2024 Bamboo flowsheet Saravanan Zita DO Work Phone: [facility] Start: 05-22-2024 End: 05-22-2024 flow sheet Saravanan Zita DO Work Phone: [facility] Comment on above: Second trimester pre gnancy; 14 weeks gestation of ; Spotting in Start: 05-22-2024 End: 05-22-2024 ambulatory SARAVANAN ZITA Not Available Start: 05-15-2024 End: 05-15-2024 ambulatory SARAVANAN ZITA Not Available Start: 05-15-2024 End: 05-15-2024 Office outpatient visit 5 minutes [facility] Zita Nurse [facility] Comment on above: First trimester preg talya; 13 weeks gestation of ; Urinary tract infection without hematuria, site unspecified Start: 04-21-2024 End: 04-24-2024 Clinisync Result Encounter Generic External Data Provider [facility] External Department Unsolicited Start: 04-21-2024 End: 04-24-2024 Clinisync Result Encounter Generic External Data Provider [facility] External Department Unsolicited Start: 04-21-2024 End: 04-21-2024 Office outpatient visit 5 minutes Saravanan Zita DO Work Phone: [facility] Comment on above: GA: 9w5d Start: 04-21-2024 End: 04-21-2024 ambulatory SARAVANAN ZITA Not Available Start: 2024 End: 04-04-2024 Patient encounter procedure Ortega Morrissey APRN.VENEER JOINTER HELPER Work Phone: [facility] Comment on above: Progesterone Questio n Start: 2024 End: 2024 Nursing evaluation of patient and report Us Tech 1 [facility] Rej Work Phone: [facility] Comment on above: Supervision of pregn thor with history of infertility, first trimester Start: 2024 End: 04-04-2024 ambulatory Ortega Morrissey VISUAL AID EXPERT.VENEER JOINTER HELPER Work Phone: [facility] Start: 03-27-2024 End: 03-27-2024 flow sheet [facility] Nurse [facility] Comment on above: GA: 6w1d Start: 03-27-2024 End: 03-27-2024 ambulatory SARAVANAN ZITA Not Available Start: 03-17-2024 End: 03-17-2024 ambulatory ORTEGA MINDZORA Facility:[facility] Start: 03-17-2024 End: 03-17-2024 Patient encounter procedure Ortega Housera VISUAL AID EXPERT.VENEER JOINTER HELPER Work Phone: [facility] Comment on above: Supervision of pregn thor with history of infertility, first trimester (Primary Dx) Start: 03-17-2024 End: 03-17-2024 Telemedicine consultation with patient Ortega Morrissey APRN.CNP Work Phone: [facility] Start: 03-16-2024 End: 03-16-2024 Orders Only Madeleine Orta PA-C Work Phone: [facility] Comment on above: Encounter for pregna ncy test, result positive (Primary Dx) Start: 03-15-2024 End: 03-15-2024 ambulatory ORTEGA MORRISSEY Facility:[facility] Start: 03-13-2024 End: 03-13-2024 ambulatory ORTEGA MORRISSEY Facility:[facility] Start: 03-13-2024 End: 03-13-2024 Telephone encounter Fede Hairston MD Work Phone: [facility] Comment on above: +hpt today/lmp 02/12 skipped treatment this month Start: 03-10-2024 End: 03-10-2024 ambulatory MIRTA GALLAGHER Facility:[facility] Start: 03-08-2024 End: 03-08-2024 Office outpatient new 45 minutes Gabriel Blackwell DO Work Phone: [facility] Comment on above: Otalgia of both ears (Primary Dx); Temporomandibular joint disorder; Chronic allergic rhinitis; Postnasal drip Start: 03-08-2024 End: 03-08-2024 ambulatory [facility] Start: 02-28-2024 End: 02-28-2024 Telephone encounter Fede Hairston MD Work Phone: [facility] Comment on above: ortega cueva is not el ared for us should she still have it do Start: 02-23-2024 End: 02-25-2024 E-mail encounter from caregiver Ortega Morrissey APRN.CNP Work Phone: [facility] Start: 02-23-2024 End: 02-25-2024 Patient encounter procedure Ortega Morrissey APRN.CNP Work Phone: [facility] Comment on above: Next steps Start: 02-23-2024 End: 02-23-2024 ambulatory FEDE HAIRSTON Facility:[facility] Start: 02-23-2024 End: 02-23-2024 Nursing evaluation of patient and report Nurse Gayathri [facility] Comment on above: Female infertility Start: 02-21-2024 End: 02-21-2024 Telephone encounter Fede Hairston MD Work Phone: [facility] Comment on above: needs [facility] at [facility] Start: 02-17-2024 End: 02-17-2024 ambulatory FEDE HAIRSTON Facility:[facility] Start: 02-17-2024 End: 02-17-2024 Office outpatient visit 25 minutes Fede Hairston MD Work Phone: [facility] Comment on above: PCOS (polycystic ova kwadwo syndrome) (Primary Dx) Start: 02-15-2024 End: 02-15-2024 Patient encounter status Robles Goldsmith DO Work Phone: [facility] Start: 02-15-2024 End: 02-15-2024 Periodic preventive med est patient 18-39 yrs Robles Goldsmith DO Work Phone: [facility] Comment on above: Encounter for gyneco logical examination without abnormal finding (Primary Dx); Screening for malignant neoplasm of cervix; Desire for ; BV (bacterial vaginosis) Start: 02-15-2024 End: 02-15-2024 ambulatory ROBLES GOLDSMITH Not Available Start: 02-15-2024 End: 02-17-2024 External Result Encounter Robles Goldsmith DO Work Phone: [facility] Unsolicited Start: 02-15-2024 End: 02-17-2024 External Result Encounter Robles Goldsmith DO Work Phone: [facility] Unsolicited Start: 02-15-2024 End: 02-15-2024 Telephone encounter Fede Hairston MD Work Phone: [facility] Comment on above: lmp 02/13 for iui - ovulation tracking Start: 02-12-2024 End: 02-16-2024 Refill Fede Hairston MD Work Phone: [facility] Comment on above: Refill Request Start: 01-26-2024 End: 01-31-2024 Refill Ortega Morrissey APRN.CNP Work Phone: [facility] Comment on above: Refill Request Start: 01-24-2024 End: 01-24-2024 ambulatory LITO VELAZQUEZ Not Available Start: 01-14-2024 End: 01-14-2024 Telephone encounter Ortega Morrissey APRN.CNP Work Phone: [facility] Comment on above: iui plan , cd1 01/12 Start: 01-14-2024 End: 01-17-2024 ambulatory MIRTA GALLAGHER Facility:[facility] Start: 12-31-2023 End: 12-31-2023 ambulatory ORTEGASARAHY MORRISSEY Facility:[facility] Start: 12-31-2023 End: 12-31-2023 Patient encounter procedure Ortega Morrissey APRN.CNP Work Phone: [facility] Comment on above: Encounter for artifi cial insemination (Primary Dx) Start: 12-21-2023 End: 12-21-2023 ambulatory [facility] Facility:[facility] Start: 12-21-2023 End: 12-21-2023 Nursing evaluation of patient and report Fede Hairston MD Work Phone: [facility] Comment on above: Female infertility Start: 12-13-2023 End: 12-13-2023 Telephone encounter Fede Hairston MD Work Phone: [facility] Comment on above: LMP 12/12/23/ set up monitored cycle; Patient Update Start: 11-28-2023 End: 11-28-2023 ambulatory DESHAWN RIOJAS Facility:[facility] Start: 11-28-2023 End: 11-28-2023 Patient encounter procedure Deshawn Riojas MD Work Phone: [facility] Comment on above: Female infertility ( Primary Dx) Start: 11-23-2023 End: 11-23-2023 ambulatory Ortega Morrissey APRN.CNP Work Phone: [facility] Start: 11-23-2023 End: 11-23-2023 Patient encounter procedure Ortega Morrissey APRN.VENEER JOINTER HELPER Work Phone: [facility] Comment on above: IUI Round 2 Start: 11-22-2023 End: 11-22-2023 ambulatory [facility] Facility:[facility] Start: 11-22-2023 End: 11-22-2023 Patient encounter procedure Ortega Morrissey APRN.VENEER JOINTER HELPER Work Phone: [facility] Comment on above: Procreation manageme nt investigation and testing (Primary Dx) Start: 11-22-2023 End: 11-22-2023 Telemedicine consultation with patient Ortega Morrissey DEBBIE.VENEER JOINTER HELPER Work Phone: [facility] Start: 11-22-2023 End: 11-22-2023 ambulatory [facility] Facility:[facility] Start: 11-22-2023 End: 11-22-2023 ambulatory [facility] Facility:[facility] Start: 11-22-2023 End: 11-22-2023 Nursing evaluation of patient and report Nurse Gayathri [facility] Comment on above: Female infertility Start: 11-18-2023 End: 11-18-2023 ambulatory Ortega Morrissey APRN.VENEER JOINTER HELPER Work Phone: [facility] Start: 11-18-2023 End: 11-18-2023 Patient encounter procedure Ortega Morrissey APRN.VENEER JOINTER HELPER Work Phone: [facility] Comment on above: IUI Medication quest ion Start: 11-12-2023 End: 11-15-2023 Telephone encounter Self [facility] Comment on above: iui 10/25 , cd 1 11/11 Start: 10-26-2023 End: 10-26-2023 ambulatory Ortega Morrissey APRN.VENEER JOINTER HELPER Work Phone: [facility] Start: 10-26-2023 End: 10-26-2023 Patient encounter procedure Ortega Morrissey DEBBIE.VENEER JOINTER HELPER Work Phone: [facility] Comment on above: Encounter for artifi cial insemination (Primary Dx) Progesterone Questio n Start: 10-22-2023 End: 10-22-2023 Nursing evaluation of patient and report Nurse Gayathri [facility] Comment on above: Female infertility Start: 10-22-2023 End: 10-22-2023 ambulatory ORTEGA YUNI Facility:[facility] Start: 10-20-2023 Telephone encounter Self [facility] Comment on above: trigger shot Start: 10-12-2023 Telephone encounter Fede Hairston MD Work Phone: [facility] Comment on above: Ortega bowens today/re day 11-13 for iui Start: 09-13-2023 End: 09-13-2023 ambulatory FEDE HAIRSTON Facility:[facility] Start: 09-10-2023 End: 09-10-2023 ambulatory ORTEGA MORRISSEY Facility:[facility] Start: 09-10-2023 End: 09-10-2023 Patient encounter procedure Ortega Morrissey CNM Work Phone: [facility] Comment on above: Screen for sexually transmitted diseases (Primary Dx); Secondary amenorrhea; Female infertility Start: 09-10-2023 End: 09-10-2023 Telemedicine consultation with patient Ortega Morrissey HENRIETTA Work Phone: [facility] Start: 09-08-2023 Telephone encounter Fede Hairston MD Work Phone: [facility] Comment on above: Patient Question Start: 09-02-2023 End: 09-02-2023 ambulatory FEDE HAIRSTON Facility:[facility] Start: 09-02-2023 Telephone encounter Fede Hairston MD Work Phone: [facility] Comment on above: lmp 07/23 no cycle si nce then Start: 08-19-2023 End: 08-19-2023 ambulatory FEDE HAIRSTON Facility:[facility] Start: 08-19-2023 End: 08-19-2023 Patient encounter procedure Fede Hairston MD Work Phone: [facility] Comment on above: Irregular menstrual cycle (Primary Dx); PCOS (polycystic ovarian syndrome) Start: 08-19-2023 End: 08-19-2023 Telemedicine consultation with patient Fede Hairston MD Work Phone: [facility] Start: 08-17-2023 End: 08-17-2023 ambulatory MIRTA GALLAGHER Facility:[facility] Start: 08-17-2023 End: 08-17-2023 Patient encounter procedure Mirta Gallagher MD Work Phone: Endocrinology Comment on above: Monoallelic mutation of SDHA gene (Primary Dx); Obesity, Class III, BMI 40-49.9 (morbid obesity) (HCC) Monoallelic mutation of SDHA gene (Primary Dx) Start: 08-17-2023 End: 08-17-2023 ambulatory MIRTA GALLAGHER Facility:[facility] Start: 07-29-2023 E-mail encounter fro m caregiver Fede Hairston MD Work Phone: [facility] Start: 07-29-2023 Patient encounter procedure Fede Hairston MD Work Phone: [facility] Comment on above: Instructions for janette eduling Start: 07-29-2023 End: 07-29-2023 [facility] Comment on above: Fertility testing [Z 31.41] Start: 07-29-2023 End: 07-29-2023 ambulatory FEDE HAIRSTON Facility:[facility] Start: 07-29-2023 Encounter for preprocedural laboratory examination MIRTA GALLAGHER [facility] Start: 07-29-2023 End: 07-29-2023 Nursing evaluation of patient and report Nurse Gayathri [facility] Reproductive Endocrinology Infertility Comment on above: Encounter for fertil ity testing (Primary Dx); Pre-procedure lab exam Start: 07-29-2023 End: 07-29-2023 Patient encounter status Nurse Gayathri [facility] Start: 07-13-2023 End: 07-13-2023 ambulatory LITO VELAZQUEZ Not Available Start: 06-23-2023 End: 06-23-2023 ambulatory МАРИЯ LABOY Facility:[facility] Start: 06-17-2023 End: 06-17-2023 ambulatory MIRTA AILEEN Facility:[facility] Start: 06-16-2023 Telephone encounter Fina pérez [facility] Work Phone: [facility] Comment on above: Tie Buyer - O ther (Hereditary Paraganglioma- Pheochromocytoma Syndrome clinic) Start: 06-10-2023 Telephone encounter Elsa altman [facility] Work Phone: [facility] Comment on above: Results (Genetic) Start: 05-25-2023 Telephone encounter Fede Hairston MD Work Phone: Reproductive Endocrinology Infertility Comment on above: refill letrozol/cycl e to start in next week Start: 05-18-2023 End: 05-18-2023 ambulatory ANNAMARIE WEISS Facility:[facility] Start: 04-23-2023 Telephone encounter Elsa altman [facility] Work Phone: [facility] Comment on above: Follow Up Start: 04-21-2023 End: 04-21-2023 ambulatory FEDE HAIRSTON Facility:[facility] Start: 04-21-2023 End: 04-21-2023 ambulatory Elsa Puentes [facility] Work Phone: [facility] Comment on above: Family history of br east cancer (Primary Dx); Family history of prostate cancer Start: 04-21-2023 End: 04-21-2023 Telemedicine consultation with patient Elsa Xavier [facility] Work Phone: [facility] [place] Start: 04-19-2023 End: 04-19-2023 ambulatory ORTEGA MORRISSEY Facility:[facility] Start: 04-07-2023 End: 04-07-2023 ambulatory Fede Hairston MD Work Phone: Reproductive Endocrinology Infertility Comment on above: PCOS (polycystic ova kwadwo syndrome) (Primary Dx); Fertility testing Start: 04-07-2023 End: 04-07-2023 Telemedicine consultation with patient Fede Hairston MD Work Phone: [facility] Start: 02-08-2023 End: 02-08-2023 ambulatory Fede Hairston MD Work Phone: Reproductive Endocrinology Infertility Start: 02-08-2023 End: 02-08-2023 Patient encounter procedure Fede Hairston MD Work Phone: [facility] Start: 02-04-2023 Telephone encounter Fede Hairston MD Work Phone: Reproductive Endocrinology Infertility Comment on above: started letrozole Start: 06-26-2022 End: 06-26-2022 ambulatory Josefina Kay Other [employer] Other Start: 06-26-2022 Office outpatient visit 15 minutes Josefina Kay [facility] Start: 12-05-2019 Patient encounter procedure [facility] Facility: Procedures Date Procedure Procedure Detail Performing Clinician Start: 05-23-2024 US OB CERVICAL LENGTH Generic External D cecile Provider Start: 05-22-2024 Urnls dip stick/tablet rgnt non-auto w/o micrscp Saravanan Zita DO Work Phone: Start: 05-15-2024 Urnls dip stick/tablet rgnt non-auto w/o micrscp Saravanan Zita DO Work Phone: Start: 04-21-2024 BOX TEST Saravanan Zita DO Work Phone: Start: 04-21-2024 Urnls dip stick/tablet rgnt non-auto w/o micrscp Saravanan Ahumada DO Work Phone: Start: 2024 Us preg uterus after 1st trimest 1/ gestation Ortega Harshra VISUAL AID EXPERT.[employer] JOINTER HELPER Work Phone: Start: 02-23-2024 Us pelvic nonobstetric image dcmtn limited/f/u Ortega Mindzora VISUAL AID EXPERT.VENEER JOINTER HELPER Work Phone: Start: 02-15-2024 Smr prim src wet mount nfct agt Robles Goldsmith DO Work Phone: Start: 02-15-2024 APTIMA MULTITEST VAGINAL Robles kenny DO Work Phone: Start: 12-21-2023 Us pelvic nonobstetric image dcmtn limited/f/u Ortega Mindzora VISUAL AID EXPERT.VENEER JOINTER HELPER Work Phone: Start: 11-22-2023 Us pelvic nonobstetric image dcmtn limited/f/u Ortega Mindzora VISUAL AID EXPERT.VENEER JOINTER HELPER Work Phone: Start: 10-22-2023 Us pelvic nonobstetric image dcmtn limited/f/u Ortega Mindzora VISUAL AID EXPERT.VENEER JOINTER HELPER Work Phone: Start: 07-29-2023 Urine test visual color cmprsn meths Ortega Mindzora VISUAL AID EXPERT.CNM Work Phone: Start: 02-08-2023 Us pelvic nonobstetric real-time image complete Fede Hairston MD Work Phone: Plan of Treatment Date Care Activity Detail Author Start: 2070 RSV Vaccine (1 - 1-dose 75+ series) RSV Vaccine (1 - 1-dose 75+ series) [facility] Start: 2045 Zoster Vaccines (1 of 2) Zoster Vaccines (1 of 2) [facility] Start: 06-26-2032 DTaP/Tdap/Td Vaccines (7 - Td or Tdap) DTaP/Tdap/Td Vaccines (7 - Td or Tdap) [facility] Start: 06-26-2032 Urine microalbumin profile DTaP,Tdap,Td Vaccine (7 - Td or Tdap) [facility] Start: 07-18-2024 End: 07-18-2024 Patient encounter procedure 07/18/2024 9:15 AM EDT Office Visit [facility] [address] [place] [address] Lito Velazquez MD [address] [place] [address] [facility] Start: 06-19-2024 End: 06-19-2024 Patient encounter procedure [facility] Start: 05-23-2024 End: 05-23-2024 Patient encounter procedure 05/23/2024 4:00 PM EST Office Visit [facility] [address] [place] [address] Andrew Ferrer, DPM [address] [place], [place] [id number] [facility] Start: 05-22-2024 End: 07-20-2024 Alpha fetoprotein, maternal Alpha fetoprotein, maternal Lab Routine Second trimester 14 weeks gestation of Expected: 05/22/2024 (Approximate), Expires: 07/20/2024 [facility] Work Phone: Comment on above: Expected: 05/22/2024 (Approximate), Expi res: 07/20/2024 Start: 05-22-2024 End: 05-22-2025 US Pelvis transvaginal US OB transvaginal Imaging Routine Spotting in Expected: 05/22/2024, Expires: 05/22/2025 [facility] Comment on above: Expected: 05/22/2024, Expires: Start: 05-22-2024 End: 05-22-2024 Patient encounter procedure [facility] Comment on above: Arrived Start: 05-01-2024 End: 05-01-2024 ambulatory 05/01/2024 3:15 PM EST Initial [facility] [address] [address] Manju Alford, [address] [address] [facility] Start: 04-21-2024 End: 04-21-2025 ABO/Rh ABO/Rh Lab Routine Missed menses , unspecified gestational age Expected: 04/21/2024 (Approximate), Expires: 04/21/2025 [facility] Comment on above: Expected: 04/21/2024 (Approximate), Expi res: 04/21/2025 Start: 04-21-2024 End: 04-21-2025 Blood type and Indirect antibody screen panel - Blood Type and screen Lab Routine Missed menses , unspecified gestational age Expected: 04/21/2024 (Approximate), Expires: 04/21/2025 [facility] Comment on above: Expected: 04/21/2024 (Approximate), Expi res: 04/21/2025 Start: 04-21-2024 End: 04-21-2025 Drugs of abuse panel - Urine by Screen method Rapid drug screen, urine Lab Routine , unspecified gestational age Encounter for supervision of normal first in first trimester Expected: 04/21/2024 (Approximate), Expires: 04/21/2025 [facility] Comment on above: Expected: 04/21/2024 (Approximate), Expi res: 04/21/2025 Start: 04-20-2024 End: 04-20-2025 US Pelvis transvaginal US OB transvaginal Imaging Routine Missed menses Expected: 04/20/2024, Expires: 04/20/2025 [facility] Work Phone: Comment on above: Expected: 04/20/2024, Expires: Start: 04-12-2024 End: 04-12-2024 Professional / ancillary services management 04/12/2024 4:00 PM EST Ancillary Procedure [facility] [address] [address] [facility] Start: 2024 End: 2024 Nursing evaluation of patient and report 2024 11:10 AM EST Nurse Visit [facility]ology Inf[facility] [address] [place] [address] ob scan [facility] End[facility]inology Infertility Comment on above: ob scan Start: 03-30-2024 End: 03-30-2024 Patient encounter procedure 03/30/2024 12:40 PM EST [facility] [address] [place] [address] Cira Garcia V, MD [address] [place] [address] Weight management Endocrinology Comment on above: Weight management Start: 03-27-2024 End: 03-27-2025 Bacteria identified in Urine by Culture Urine culture Microbiology Routine Encounter for supervision of normal first in first trimester Expected: 03/27/2024 (Approximate), Expires: 03/27/2025 [facility] Comment on above: Expected: 03/27/2024 (Approximate), Expi res: 03/27/2025 Start: 03-27-2024 End: 03-27-2025 Blood type and Indirect antibody screen panel - Blood Type and screen Lab Routine Encounter for supervision of normal first in first trimester Expected: 03/27/2024 (Approximate), Expires: 03/27/2025 [facility] Comment on above: Expected: 03/27/2024 (Approximate), Expi res: 03/27/2025 Start: 03-27-2024 End: 03-27-2025 CBC W Auto Differential panel - Blood CBC and differential Lab Routine Encounter for supervision of normal first in first trimester Expected: 03/27/2024 (Approximate), Expires: 03/27/2025 [facility] Comment on above: Expected: 03/27/2024 (Approximate), Expi res: 03/27/2025 Start: 03-27-2024 End: 03-27-2025 DRUG SCREEN 17 W/CONF, UR DRUG SCREEN 17 W/CONF, UR Lab Routine Encounter for supervision of normal first in first trimester Encounter for drug screening Expected: 03/27/2024 (Approximate), Expires: 03/27/2025 [facility] Comment on above: Expected: 03/27/2024 (Approximate), Expi res: 03/27/2025 Start: 03-27-2024 End: 03-27-2025 Hepatitis B virus surface Ag [Presence] in Serum or Plasma by Immunoassay Hepatitis B surface antigen Lab Routine Encounter for supervision of normal first in first trimester Expected: 03/27/2024 (Approximate), Expires: 03/27/2025 [facility] Comment on above: Expected: 03/27/2024 (Approximate), Expi res: 03/27/2025 Start: 03-27-2024 End: 03-27-2025 Hepatitis C virus Ab [Presence] in Serum or Plasma by Immunoassay Hepatitis C antibody Lab Routine Encounter for supervision of normal first in first trimester Expected: 03/27/2024 (Approximate), Expires: 03/27/2025 [facility] Comment on above: Expected: 03/27/2024 (Approximate), Expi res: 03/27/2025 Start: 03-27-2024 End: 03-27-2025 HIV-1/HIV-2 antigen/antibody combination immunoassay HIV-1 and HIV-2 antibodies Lab Routine Encounter for supervision of normal first in first trimester Expected: 03/27/2024 (Approximate), Expires: 03/27/2025 [facility] Comment on above: Expected: 03/27/2024 (Approximate), Expi res: 03/27/2025 Start: 03-27-2024 End: 03-27-2025 Reagin Ab [Presence] in Serum by RPR RPR Lab Routine Encounter for supervision of normal first in first trimester Expected: 03/27/2024 (Approximate), Expires: 03/27/2025 [facility] Comment on above: Expected: 03/27/2024 (Approximate), Expi res: 03/27/2025 Start: 03-27-2024 End: 03-27-2025 Rubella antibody, IgG Rubella antibody, IgG Lab Routine Encounter for supervision of normal first in first trimester Expected: 03/27/2024 (Approximate), Expires: 03/27/2025 [facility] Comment on above: Expected: 03/27/2024 (Approximate), Expi res: 03/27/2025 Start: 03-27-2024 End: 03-27-2025 Urinalysis complete panel - Urine Urinalysis with microscopic Lab Routine Encounter for supervision of normal first in first trimester Expected: 03/27/2024 (Approximate), Expires: 03/27/2025 [facility] Work Phone: Comment on above: Expected: 03/27/2024 (Approximate), Expi res: 03/27/2025 Start: 03-17-2024 End: 03-17-2025 OBSTETRIC ULTRASOUND WHI OBSTETRIC ULTRASOUND WHI Anc Imaging Routine Supervision of with history of infertility, first trimester Expected: 03/17/2024, Expires: 03/17/2025 [facility] Work Phone: Comment on above: Expected: 03/17/2024, Expires: Start: 03-17-2024 End: 03-17-2024 Patient encounter procedure 03/17/2024 2:00 PM EST [facility] Reproductive Endocrinology Infertility [address] [place] [address] Ortega Morrissey, VISUAL AID EXPERT.VENEER JOINTER HELPER [address] [place] [address] new preg Reproductive Endocrinology Infertility Comment on above: new preg Start: 03-16-2024 End: 06-15-2024 Choriogonadotropin.be ta subunit [Units/volume] in Serum or Plasma HCG QUANTITATIVE Lab Routine Encounter for test, result positive Expected: 03/16/2024, Expires: 06/15/2024 [facility] Work Phone: Comment on above: Expected: 03/16/2024, Expires: Start: 03-15-2024 End: 03-15-2024 Patient encounter procedure 03/15/2024 3:45 PM EST Office Visit [facility] [address] [place] [address] [place] [address] lab [facility] Comment on above: lab Start: 02-28-2024 End: 05-29-2024 Progesterone [Mass/volume] in Serum or Plasma PROGESTERONE Lab Routine Female infertility Expected: 02/28/2024, Expires: 05/29/2024 [facility] Work Phone: Comment on above: Expected: 02/28/2024, Expires: Start: 02-26-2024 End: 02-26-2024 Patient encounter procedure 02/26/2024 6:00 PM EST Office Visit [facility] [address] [place] [address] follicle us -benefit check Reproductive Endocrinology Infertility Comment on above: follicle us -benefit check Start: 02-23-2024 End: 02-23-2024 Nursing evaluation of patient and report 02/23/2024 7:00 AM EST Nurse Visit [facility] [address] [place] [address] Rej, Nurse Gayathri [facility] [address] [place] [address] midcycle Reproductive Endocrinology Infertility Comment on above: midcycle Start: 02-17-2024 End: 02-17-2024 Follow-up encounter 02/17/2024 9:30 AM EST [facility] Reproductive Endocrinology Infertility [address] [place] [address] Fede Hairston MD [address] [place] [address] follow up Reproductive Endocrinology Infertility Comment on above: follow up Start: 02-15-2024 End: 02-14-2025 FOLLICULAR US WHI FOLLICULAR US WHI Anc Imaging Routine Female infertility Expected: 02/15/2024, Expires: 02/14/2025 [facility] Work Phone: Comment on above: Expected: 02/15/2024, Expires: Start: 01-19-2024 End: 01-19-2024 Patient encounter procedure 01/19/2024 6:00 PM EDT Office Visit [facility] [address] [place] [address] iui-benefit check Reproductive Endocrinology Infertility Comment on above: iui-benefit check Start: 12-13-2023 End: 12-12-2024 FOLLICULAR US WHI FOLLICULAR US WHI Anc Imaging Routine Female infertility Expected: 12/13/2023, Expires: 12/12/2024 [facility] Work Phone: Comment on above: Expected: 12/13/2023, Expires: Start: 11-28-2023 Covid-19 Vaccine () Covid-19 Vaccine () [facility] Start: 11-28-2023 Covid-19 Vaccine () Covid-19 Vaccine () [facility] Start: 11-28-2023 Influenza vaccination [facility] Start: 11-22-2023 End: 11-22-2023 Nursing evaluation of patient and report 11/22/2023 7:15 AM EDT Nurse Visit [facility]ocrinology Infertility [address] [place] [address] Rej, Nurse Gayathri [facility] [address] [place] [address] Follicular scan Reproductive Endocrinology Infertility Comment on above: Follicular scan Start: 11-18-2023 End: 11-18-2023 Patient encounter procedure 11/18/2023 6:00 PM EDT Office Visit [facility] [address] [place] [address] midcycle-benefit check Reproductive Endocrinology Infertility Comment on above: midcycle-benefit check Start: 11-15-2023 End: 11-14-2024 FOLLICULAR US WHI FOLLICULAR US WHI Anc Imaging Routine Female infertility Expected: 11/15/2023, Expires: 11/14/2024 [facility] Work Phone: Comment on above: Expected: 11/15/2023, Expires: Start: 11-04-2023 End: 11-04-2023 Patient encounter procedure Endocrinology Comment on above: MED WT MGMT Start: 10-22-2023 End: 10-22-2023 Nursing evaluation of patient and report 10/22/2023 7:00 AM EDT Nurse Visit [facility]ductive [facility]ocrinology Infertility [address] [place] [address] Greta Nurse Gayathri [facility] [address] [place] [address] midcycle Reproductive Endocrinology Infertility Comment on above: midcycle Start: 09-19-2023 End: 12-19-2023 Progesterone [Mass/volume] in Serum or Plasma PROGESTERONE Lab Routine Irregular menstrual cycle Expected: 09/19/2023 (Approximate), Expires: 12/19/2023 [facility] Work Phone: Comment on above: Expected: 09/19/2023 (Approximate), Expi res: 12/19/2023 Start: 09-10-2023 End: 09-10-2023 Patient encounter procedure 09/10/2023 3:00 PM EDT [facility] Reproductive Endocrinology Infertility [address] [place] [address] Ortega Morrissey APRN.[facility] [address] [place] [id number] IUI teach Reproductive Endocrinology Infertility Comment on above: IUI teach Start: 09-10-2023 End: 12-10-2023 Chlamydia trachomatis+Neisseria gonorrhoeae DNA [Presence] in Unspecified specimen by JANESSA with probe detection GONORRHEA/CHLAMYDIA NAAT Lab Routine Screen for sexually transmitted diseases Expected: 09/10/2023 (Approximate), Expires: 12/10/2023 [facility] Comment on above: Expected: 09/10/2023 (Approximate), Expi res: 12/10/2023 Start: 09-10-2023 End: 12-10-2023 Choriogonadotropin.be ta subunit [Units/volume] in Serum or Plasma HCG QUANTITATIVE Lab Routine Secondary amenorrhea Expected: 09/10/2023, Expires: 12/10/2023 [facility] Comment on above: Expected: 09/10/2023, Expires: Start: 09-10-2023 End: 09-09-2024 FOLLICULAR US WHI FOLLICULAR US WHI Anc Imaging Routine Female infertility Expected: 09/10/2023, Expires: 09/09/2024 [facility] Comment on above: Expected: 09/10/2023, Expires: 5 Start: 09-10-2023 End: 12-10-2023 Hepatitis B virus surface Ag [Presence] in Serum HEPATITIS B SURFACE ANTIGEN Lab Routine Screen for sexually transmitted diseases Expected: 09/10/2023, Expires: 12/10/2023 [facility] Comment on above: Expected: 09/10/2023, Expires: 4 Start: 09-10-2023 End: 12-10-2023 Hepatitis C virus Ab [Presence] in Serum HEPATITIS C ANTIBODY IA WITH CONFIRMATION Lab Routine Screen for sexually transmitted diseases Expected: 09/10/2023, Expires: 12/10/2023 [facility] Comment on above: Expected: 09/10/2023, Expires: 4 Start: 09-10-2023 End: 12-10-2023 HIV 1+2 Ab [Presence] in Serum or Plasma by Immunoassay HIV 1/2 COMBO WITH REFLEX TO DIFFERENTIATION Lab Routine Screen for sexually transmitted diseases Expected: 09/10/2023, Expires: 12/10/2023 [facility] Comment on above: Expected: 09/10/2023, Expires: 4 Start: 09-10-2023 End: 12-10-2023 Progesterone [Mass/volume] in Serum or Plasma PROGESTERONE Lab Routine Secondary amenorrhea Expected: 09/10/2023, Expires: 12/10/2023 [facility] [employer] Work Phone: Comment on above: Expected: 09/10/2023, Expires: 4 Start: 09-10-2023 End: 12-10-2023 SYPHILIS TOTAL W/REFLEX SYPHILIS TOTAL W/REFLEX Lab Routine Screen for sexually transmitted diseases Expected: 09/10/2023, Expires: 12/10/2023 [facility] Comment on above: Expected: 09/10/2023, Expires: Start: 09-02-2023 End: 12-02-2023 Choriogonadotropin.be ta subunit [Units/volume] in Serum or Plasma [facility] Comment on above: Expected: 09/02/2023, Expires: Start: 09-02-2023 End: 12-02-2023 Progesterone [Mass/volume] in Serum or Plasma [facility] Work Phone: Comment on above: Expected: 09/02/2023, Expires: Start: 08-19-2023 End: 08-19-2023 Follow-up encounter 08/19/2023 10:30 AM EDT [facility] Reproductive Endocrinology Infertility [address] [place] [address] Fede Hairston MD [address] [place] [address] follow up / rescheduled ok per KF Reproductive Endocrinology Infertility Comment on above: follow up / rescheduled ok per KF Start: 08-17-2023 End: 08-17-2023 Patient encounter procedure 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 Start: 06-16-2023 End: 09-15-2023 METANEPHRINES, FREE PLASMA METANEPHRINES, FREE PLASMA Lab Routine Monoallelic mutation of SDHA gene Expected: 06/16/2023, Expires: 09/15/2023 [facility] Work Phone: Comment on above: Expected: 06/16/2023, Expires: Start: 06-01-2023 Varicella vaccination Varicella Vaccines (2 of 2 - 2-dose childhood series) [facility] Start: 05-17-2023 End: 08-16-2023 MISC SEND OUT TST 1 MISC SEND OUT TST 1 Lab Routine Family history of cancer Family history of gene mutation Expected: 05/17/2023, Expires: 08/16/2023 [facility] Work Phone: Comment on above: Expected: 05/17/2023, Expires: 4 Start: 04-17-2023 End: 07-17-2023 Progesterone [Mass/volume] in Serum or Plasma PROGESTERONE BLD Lab Routine PCOS (polycystic ovarian syndrome) Expected: 04/17/2023 (Approximate), Expires: 07/17/2023 [facility] Work Phone: Comment on above: Expected: 04/17/2023 (Approximate), Expi res: 07/17/2023 Start: 03-29-2023 Behavioral Health Screening Behavioral Health Screening [facility] Start: 03-29-2023 Depression Assessment Depression Assessment [facility] Start: 02-04-2023 End: 05-06-2023 Progesterone [Mass/volume] in Serum or Plasma PROGESTERONE BLD Lab Routine Encounter for fertility testing Expected: 02/04/2023, Expires: 05/06/2023 [facility] Work Phone: Comment on above: Expected: 02/04/2023, Expires: Start: 11-27-2022 Covid-19 Vaccine () Covid-19 Vaccine () [facility] Start: 11-27-2022 Influenza vaccination Influenza Vaccine (#1) [facility] Start: 03-29-2022 Depression Assessment Depression Assessment [facility] Start: 2016 Pap Testing Pap Testing [facility] Start: 2016 Screening for malignant neoplasm of cervix [facility] Start: 2014 Hepatitis A Vaccines (1 of 2 - Risk 2-dose series) Hepatitis A Vaccines (1 of 2 - Risk 2-dose series) [facility] Start: 2014 Urine microalbumin profile DTaP,Tdap,Td Vaccine (1 - Tdap) [facility] Start: 2013 Anxiety Screening Anxiety Screening [facility] Start: 2013 Depression Screening Depression Screening [facility] Start: 2013 Hepatitis C Screening Hepatitis C Screening [facility] Start: 2013 Hepatitis C screening Hepatitis C Screening [facility] Start: 2013 HIV Screening HIV Screening [facility] Start: 2013 HIV screening HIV Screening [facility] Start: 1995 Covid-19 Vaccine (#1) Covid-19 Vaccine (#1) [facility] Start: 1995 Hepatitis B Vaccine (1 of 3 - 3-dose series) Hepatitis B Vaccine (1 of 3 - 3-dose series) [facility] Start: 1995 HIV screening HIV Screening [facility] Start: 1995 Lipid panel Lipid Panel [facility] Start: 1995 Yearly Adult Physical Yearly Adult Physical [facility] Bacteria identified in Urine by Culture Urine culture Microbiology Routine Missed menses Ordered: 04/21/2024 [facility] [employer] Comment on above: Ordered: 04/21/2024 Bacteria identified in Urine by Culture Urine culture Microbiology Routine Urinary tract infection without hematuria, site unspecified Ordered: 05/15/2024 [facility] [employer] Work Phone: Comment on above: Ordered: 05/15/2024 End: 05-17-2024 Cath & saline/contrast sonohyster/hysterosal pi XR HYSTEROSALPINGOGRAM Radiology Routine Fertility testing 1 Occurrences starting 04/18/2023 until 05/17/2024 [facility] Work Phone: Comment on above: 1 Occurrences starting 04/18/2023 until 05/17/2024 CBC W Auto Differential panel - Blood CBC and differential Lab Routine Missed menses , unspecified gestational age Ordered: 04/21/2024 [facility] [employer] Comment on above: Ordered: 04/21/2024 End: 03-13-2025 Choriogonadotropin.be ta subunit [Units/volume] in Serum or Plasma HCG QUANTITATIVE Lab Routine examination or test, unconfirmed Daily for 2 Occurrences starting 03/13/2024 until 03/13/2025 [facility] Work Phone: Comment on above: Daily for 2 Occurrences starting until 03/13/2025 Choriogonadotropin.b e ta subunit [Units/volume] in Serum or Plasma HCG QUANTITATIVE Lab Routine examination or test, unconfirmed 03/13/2024 3:37 PM [facility] End: 07-15-2024 CT Abdomen W contrast IV CT ABDOMEN W IVCON Radiology Routine Intra-abdominal and pelvic swelling, mass and lump, unspecified site 1 Occurrences starting 06/16/2023 until 07/15/2024 [facility] Work Phone: Comment on above: 1 Occurrences starting 06/16/2023 until 07/15/2024 End: 07-15-2024 CT Chest W contrast IV CT CHEST W IVCON Radiology Routine Localized enlarged lymph nodes 1 Occurrences starting 06/16/2023 until 07/15/2024 [facility] Work Phone: Comment on above: 1 Occurrences starting 06/16/2023 until 07/15/2024 End: 07-15-2024 CT Neck W contrast IV CT NECK SOFT TISSUE W IVCON Radiology Routine Localized enlarged lymph nodes 1 Occurrences starting 06/16/2023 until 07/15/2024 [facility] Work Phone: Comment on above: 1 Occurrences starting 06/16/2023 until 07/15/2024 Hemoglobin A1c/Hemoglobin.total in Blood Hemoglobin A1c Lab Routine Missed menses , unspecified gestational age Ordered: 04/21/2024 [facility] Comment on above: Ordered: 04/21/2024 Hepatitis B virus surface Ag [Presence] in Serum or Plasma by Immunoassay Hepatitis B surface antigen Lab Routine Missed menses , unspecified gestational age Ordered: 04/21/2024 [facility] Comment on above: Ordered: 04/21/2024 Hepatitis C virus Ab [Presence] in Serum or Plasma by Immunoassay Hepatitis C antibody Lab Routine Missed menses , unspecified gestational age Ordered: 04/21/2024 [facility] Comment on above: Ordered: 04/21/2024 HIV-1/HIV-2 antigen/antibody combination immunoassay HIV-1 and HIV-2 antibodies Lab Routine Missed menses , unspecified gestational age Ordered: 04/21/2024 [facility] Comment on above: Ordered: 04/21/2024 IGP,rfxAptima HPV all,16/18,45 IGP,rfxAptima HPV all,16/18,45 Pathology and Cytology Routine Screening for malignant neoplasm of cervix Ordered: 02/15/2024 [facility] Work Phone: Comment on above: Ordered: 02/15/2024 Reagin Ab [Presence] in Serum by RPR RPR Lab Routine Missed menses , unspecified gestational age Ordered: 04/21/2024 [facility] Comment on above: Ordered: 04/21/2024 RF Uterus and Fallopian tubes Views W contrast IU XR HYSTEROSALPINGOGRAM Radiology Routine Fertility testing 07/29/2023 2:03 PM EDT [facility] Work Phone: Rubella antibody, IgG Rubella an tibody, IgG Lab Routine Missed menses , unspecified gestational age Ordered: 04/21/2024 [facility] Comment on above: Ordered: 04/21/2024 US Pelvis transvaginal US OB transvaginal Imaging Routine Missed menses 04/21/2024 8:47 AM EST [facility] Immunizations Immunization Date Immunization Notes Care Provider Trina oconnell 05-04-2023 measles, mumps and rubella virus vaccine Robles Goldsmith DO Work Phone: [facility] 06-26-2022 tetanus toxoid, reduced diphtheria toxoid, and acellular pertussis vaccine, adsorbed Josefina Eliza Other [employer] Other 08-12-2015 Human Papillomavirus 9-valent vaccine Robles Goldsmith DO Work Phone: [facility] 04-10-2015 Human Papillomavirus 9-valent vaccine Robles Goldsmith DO Work Phone: [facility] 01-30-2015 influenza, seasonal, injectable, preservative free Robles Pyleer DO Work Phone: [facility] 01-30-2015 influenza virus vaccine, unspecified formulation Fede Hairston MD Work Phone: [facility] 12-05-2014 Human Papillomavirus 9-valent vaccine Robles Goldsmith DO Work Phone: [facility] 02-13-2009 novel [id number], preservative-free, injectable Robles Goldsmith DO Work Phone: [facility] 08-12-2006 meningococcal polysaccharide (groups A, C, Y and W-135) diphtheria toxoid conjugate vaccine (MCV4P) Robles Goldsmith DO Work Phone: [facility] 08-10-2000 diphtheria, tetanus toxoids and acellular pertussis vaccine, unspecified formulation Robles Goldsmith DO Work Phone: [facility] 08-10-2000 measles, mumps and rubella virus vaccine Robles Goldsmith DO Work Phone: [facility] 08-10-2000 poliovirus vaccine, inactivated Robles Goldsmith DO Work Phone: [facility] 08-04-1996 diphtheria, tetanus toxoids and acellular pertussis vaccine, unspecified formulation Robles Goldsmith DO Work Phone: [facility] 08-04-1996 haemophilus influenzae type b vaccine, conjugate unspecified formulation Robles Goldsmith DO Work Phone: [facility] 08-04-1996 varicella virus vaccine Robles Pyleer DO Work Phone: [facility] 04-21-1996 measles, mumps and rubella virus vaccine Robles Pyleer DO Work Phone: [facility] 03-17-1996 diphtheria, tetanus toxoids and acellular pertussis vaccine, unspecified formulation Robles Goldsmith DO Work Phone: [facility] 03-17-1996 haemophilus influenzae type b vaccine, conjugate unspecified formulation Robles Goldsmith DO Work Phone: [facility] 03-17-1996 hepatitis B vaccine, pediatric or pediatric/adolescent dosage Robles Pyleer DO Work Phone: [facility] 03-17-1996 trivalent poliovirus vaccine, live, oral Robles Goldsmith DO Work Phone: [facility] 1995 diphtheria, tetanus toxoids and pertussis vaccine Robles Pyleer DO Work Phone: [facility] 1995 haemophilus influenzae type b vaccine, conjugate unspecified formulation Robles Goldsmith DO Work Phone: [facility] 1995 hepatitis B vaccine, pediatric or pediatric/adolescent dosage Robles Glodsmith DO Work Phone: [facility] 1995 trivalent poliovirus vaccine, live, oral Robles Goldsmith DO Work Phone: [facility] 1995 diphtheria, tetanus toxoids and pertussis vaccine Robles Pyleer DO Work Phone: [facility] 1995 haemophilus influenzae type b vaccine, conjugate unspecified formulation Robles Pyleer DO Work Phone: [facility] 1995 hepatitis B vaccine, pediatric or pediatric/adolescent dosage Robles Goldsmith DO Work Phone: [facility] 1995 trivalent poliovirus vaccine, live, oral Robles Goldsmith DO Work Phone: [facility] Healthcare Payers Date Payer Category Payer Private Health Insurance AETNA AETNA POS [id number] 2021-Present [phone] [address] [place] [address] POS [id number] 2021 Managed Care (Private) [facility] [id number] 2021 Managed Care O (unspecified) AET [id number] 2021 Private Health Insurance [id number] 1995 Unknown [id number] 1995 Unknown [id number] 9.2.1243 1995 Unknown [id number] [id number] 1995 Unknown [id number] 9.2.1259 1995 Unknown [id number] 9.2.1259 1995 Unknown [id number] 9.2.1259 1995 Unknown [id number] 9.2.1259 1995 Unknown [id number] 9.2.1259 1995 Unknown [id number] 9.2.1259 1995 Unknown [id number] [id number] 1995 Unknown [id number] [id number] 1995 Unknown [id number] 1959 Self-pay Social History Date Type Detail Facility Unknown if ever smoked [employer] Other Start: 01-04-2023 End: 02-15-2024 Sex Assigned At [employer] Other Start: 10-05-2022 End: 12-29-2022 Tobacco smoking status NHIS Never smoked tobacco [facility] Start: 10-05-2022 End: 12-29-2022 Tobacco use and exposure Smokeless tobacco non-user [facility] Start: 01-04-2023 End: 03-17-2024 Alcohol intake Current drinker of alcohol (finding) [facility] Start: 01-04-2023 End: 02-15-2024 History of Social function [facility] Start: 12-29-2022 Alcohol Comment rare, socially [facility] Start: 1995 Sex Assigned At Female C [facility] Start: 01-04-2023 Gender identity Identifies as female gender (finding) [facility] National Score (1-100), lower number is lower risk 64 [facility] Start: 02-15-2024 End: 04-21-2024 Alcoholic beverage intake Ex-drinker (finding) [facility] How often to you hav e a drink containing alcohol? Never [facility] Start: 07-13-2023 Alcohol Comment Caffeine intak e: 1 cup per day coffee [facility] Start: 1995 Sex assigned at Not on file N [facility] Start: 02-27-2024 End: 03-08-2024 Exposure to SARS-CoV-2 (event) Not sure [facility] Start: 03-27-2024 Alcohol Comment Caffeine intak e:less than 100 mg daily [facility] Start: 02-27-2024 [facility] Start: 05-23-2024 Alcoholic beverage intake Lifetime non-drinker (finding) [facility] Medical Equipment Procedure Code Equipment Code Equipment Origin al Text Equipment Identifier Dates To be used to in ject HCG trigger [id number] Start: 02-17-2024 End: 03-17-2024 To be used to mi x, draw up and inject HCG trigger [id number] Start: 02-17-2024 End: 03-17-2024 Goals Date Patient Goal Desired Activity /State Personal health goal Clinical Notes 03-29-2020 to 05-23-2024 Andrew Ferrer DPM - 05/23/2024 4:00 PM Kaykay Ashley LPN - 05/22/2024 8:50 AM Cydney Hooper MA - 05/15/2024 1:30 PM Cydney Hooper MA - 04/21/2024 9:00 AM EST Note Date & Type Note Facility 05-23-2024 History of Present illness Narrative Images from the original note were not included. Subjective Patient ID: Lissa Rivas is a 29 y.o. female who presents for Toenail Problem (29 yo [employer] presents today with concerns of toenail thickening and discoloration, and callus and cracked heeled. Ongoing for quite a while. Has tried OTC products for both issues. ). HPI This is a new patient who presents to clinic with concerns of nail changes right foot as well as bilateral heel fissures. Patient states that she has noticed thickening and discoloration of the right hallux and 5th toenails over the last couple of years that have gotten worse. She has tried [id number] antifungal treatments without relief. Additionally she has noted pain along the heels with significant callus formation and fissures. She has noticed this worse on the right foot than the left foot. She is currently . Review of Systems Constitutional: Negative for activity change and fatigue. Respiratory: Negative for chest tightness and shortness of breath. Cardiovascular: Negative for chest pain and leg swelling. Musculoskeletal: Positive for gait problem. Negative for arthralgias and joint swelling. Skin: Positive for color change. Negative for wound. Neurological: Negative for weakness and numbness. Psychiatric/Behavioral: Negative for agitation and behavioral problems. Hematological: Does not bruise/bleed easily. Allergic/Immunologic: Negative for immunocompromised state. Past medical History Past Medical History: Diagnosis Date Anxiety Asthma ([facility]) GERD (gastroesophageal reflux disease) HSV (herpes simplex virus) infection PCOS (polycystic ovarian syndrome) Medications Current Outpatient Medications: cholecalciferol (Vitamin D-3) 50 MCG (1999) tablet, Take 2 tablets by mouth in the morning., Disp: , Rfl: MV-Min-Fe Fum-FA-DHA ( 1 PO), Take by mouth, Disp: , Rfl: ammonium lactate (Amlactin) 12 % cream, Apply topically Daily, Disp: 140 g, Rfl: 3 Allergies Patient has no known allergies. Past Surgical History Past Surgical History: Procedure Laterality Date EYE SURGERY 03/2020 APRIL Lau Family History Family History Problem Relation Name Age of Onset Hypertension Mother Estee Other (SDHA) Mother Estee Asthma Father Мария Diabetes Father Мария Heart disease Father Мария Stroke Father Мария Kidney disease Father Мария Atrial fibrillation Father Мария COPD Father Мария Hypertension Father Мария Hyperlipidemia Father Мария Atrial fibrillation Sister Breast cancer Mother's Sister Prostate cancer Mother's Brother Lung cancer Mother's Brother Breast cancer Maternal Grandmother Arthritis Paternal Grandmother Hina Heart disease Paternal Grandmother Hina Stroke Paternal Grandmother Hina Atrial fibrillation Paternal Grandmother Hina COPD Paternal Grandmother Hina Diabetes Paternal Grandmother Hina Objective Physical Exam Constitutional: General: She is not in acute distress. HENT: Head: Atraumatic. Cardiovascular: Pulses: Normal pulses. Musculoskeletal: Cervical back: No tenderness. Skin: Capillary Refill: Capillary refill takes less than 2 seconds. Comments: Right hallux and 5th toenail exhibit clinical mycosis with thickened appearance, yellow/brown discoloration, crumbly texture, subungual debris. Hallux toenail exhibits about 30-40 percent involvement along the lateral border. Fifth toenail exhibits 100 percent involvement. Slightly tender with manipulation. There is extensive xerotic skin along the plantar aspect of the right foot with fissuring in the heel and 5th metatarsal region. There is xerosis along the left plantar heel with fissuring as well. No drainage or cellulitis noted. Neurological: General: No focal deficit present. Mental Status: She is alert. Psychiatric: Mood and Affect: Mood normal. Behavior: Behavior normal. Assessment/Plan ICD-10-CM 1. Onychomycosis B35.1 2. Onychodystrophy L60.3 3. Xerosis cutis L85.3 ammonium lactate (Amlactin) 12 % cream 4. Fissure in skin of both feet R23.4 ammonium lactate (Amlactin) 12 % cream Patient examined and evaluated. Discussed treatment options for onychomycosis. At this time she is and I do not recommend oral antifungal. We discussed topical antifungal as an option but I disclosed that it is very ineffective and she elects not to move forward with topical antifungal. I discussed phenol matricectomy as well but at this point she has not tried any treatment. For the time being I recommend debridement on a regular basis to reduce thickness of the nail which will also improve symptomatology. The nails were debrided in length and thickness today utilizing a nail Nipper and bur outer diameter grinder without incident. She will call us if she would like to move forward with oral antifungal after she has given and is done breast feeding. Additionally we discussed treatment options for the thickened skin and fissures in bilateral heels as well as the 5th metatarsal region of the right foot. I recommend ammonium lactate cream to the areas daily under occlusion. Prescription was sent to her pharmacy. Follow up as needed for this issue. She states that her father does have psoriasis and some of the changes of the skin on the plantar foot could be a result of psoriasis and may require biopsy in the future. This note was created with the assistance of a speech recognition program. While intending to generate a timely document that accurately reflects the content of the visit, no guarantee can be provided that every grammatical or spelling mistake has been or will be identified or corrected. Thank you for your understanding. Andrew Ferrer DPM documented in this encounter [facility] 05-22-2024 History of Present illness Narrative Reason for Appointment: Patient ID: Lissa Rivas is a 29 y.o. female who presents for Routine Visit Patient presents today for Return OB appointment. 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 Resolved Ambulatory Problems Diagnosis Date Noted Chronic fatigue syndrome 10/05/2022 Past Medical History: Diagnosis Date Asthma (CMS/HCC) GERD (gastroesophageal reflux disease) HSV (herpes simplex virus) infection PCOS (polycystic ovarian syndrome) HISTORY PAST MEDICAL HISTORY SOCIAL HISTORY Past Medical History: Diagnosis Date Asthma (CMS/HCC) GERD (gastroesophageal reflux disease) HSV (herpes simplex virus) infection PCOS (polycystic ovarian syndrome) Social History Tobacco Use Smoking status: Never Smokeless tobacco: Never Vaping Use Vaping status: Never Used Substance Use Topics Alcohol use: Not Currently Comment: Caffeine intake:less than 100 mg daily Drug use: Not Currently Comment: Pain killers FAMILY HISTORY Family History Problem Relation Name Age of Onset Hypertension Mother Other (SDHA) Mother Asthma Father Diabetes Father Heart disease Father Stroke Father Kidney disease Father Atrial fibrillation Father COPD Father Hypertension Father Hyperlipidemia Father Atrial fibrillation Sister Breast cancer Mother's Sister Prostate cancer Mother's Brother Lung cancer Mother's Brother Breast cancer Maternal Grandmother Arthritis Paternal Grandmother Heart disease Paternal Grandmother Stroke Paternal Grandmother Atrial fibrillation Paternal Grandmother COPD Paternal Grandmother Diabetes Paternal Grandmother SURGICAL HISTORY Past Surgical History: Procedure Laterality Date EYE SURGERY 03/2020 APRIL Lau REVIEW OF SYSTEMS Review of Systems: Review of Systems All other systems reviewed and are negative. OBJECTIVE Objective: Physical Exam Constitutional: Appearance: Normal appearance. She is well-developed. Cardiovascular: Rate and Rhythm: Normal rate and regular rhythm. Pulmonary: Effort: Pulmonary effort is normal. Breath sounds: Normal breath sounds. Abdominal: General: Bowel sounds are normal. There is no distension. Palpations: Abdomen is soft. Tenderness: There is no abdominal tenderness. There is no guarding or rebound. Musculoskeletal: General: No swelling. Normal range of motion. Right lower leg: No edema. Left lower leg: No edema. Neurological: Mental Status: She is alert and oriented to person, place, and time. Skin: General: Skin is warm and dry. Psychiatric: Mood and Affect: Mood normal. Behavior: Behavior normal. Vitals and nursing note reviewed. Exam conducted with a ping pong table assembler present. Vitals: Estimated body mass index is 38.83 kg/m as calculated from the following: Height as of 02/15/24: 5' 3 . Weight as of 04/21/24: 219 lb 3.2 oz. BP: Patient's last menstrual period was 02/13/2024 (approximate). ASSESSMENT & PLAN ICD-10-CM 1. Second trimester Z34.92 POCT urinalysis dipstick manually resulted Alpha fetoprotein, maternal Alpha fetoprotein, maternal 2. 14 weeks gestation of Z3A.14 Alpha fetoprotein, maternal Alpha fetoprotein, maternal 3. Spotting in O26.859 US OB transvaginal New OB: Patient presents today for 1st time obstetrics appointment with provider. Patient is currently 14w1d . Patients history has been reviewed in great detail including any potential risks. Patient stated she currently has no complaints. Expectations throughout regarding labs, ultrasounds, and appointments have been discussed with the patient in detail. It was reiterated that the patient is to drink 6-8 glasses of water a day, eat 6 small meals a day, do not consume raw or undercooked meat, and stay away from [facility]. Patient has been consulted regarding any further do's and don'ts of . Patient voiced understanding and all questions and concerns were answered. Patient given order for MSAFP. Patient given order to have cervical length obtained due to vaginal spotting. Patient advised to not obtain Quant level due to fluctuation throughout . PVU Discussed preserving cord after delivery and patient and spouse aware that they would have to reach out to an outside company and is based on their choices based on family history. Discussed HSV and vaginal delivery and starting medication prior to delivery and continue afterwards. Patient voiced that she was diagnosed by lab work and not actual cultures. Patient aware that even though she is positive and only on labs then she will still be treated for HSV. Orders Placed This Encounter Procedures US OB transvaginal Alpha fetoprotein, maternal POCT urinalysis dipstick manually resulted Follow Up: Patient is to return in 4 weeks for routine OB appointment. Documented by Flip Ashley LPN on behalf of: Saravanan Ahumada DO documented in this encounter [facility] 05-15-2024 History of Present illness Narrative Reason for Appointment: Patient ID: Lissa Rivas is a 29 y.o. female who presents for Routine Visit Patient presents today for Urine Dip and Urine cultures. 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 Resolved Ambulatory Problems Diagnosis Date Noted Chronic fatigue syndrome 10/05/2022 Past Medical History: Diagnosis Date Asthma (CMS/HCC) GERD (gastroesophageal reflux disease) HSV (herpes simplex virus) infection PCOS (polycystic ovarian syndrome) HISTORY PAST MEDICAL HISTORY SOCIAL HISTORY Past Medical History: Diagnosis Date Asthma (CMS/HCC) GERD (gastroesophageal reflux disease) HSV (herpes simplex virus) infection PCOS (polycystic ovarian syndrome) Social History Tobacco Use Smoking status: Never Smokeless tobacco: Never Vaping Use Vaping status: Never Used Substance Use Topics Alcohol use: Not Currently Comment: Caffeine intake:less than 100 mg daily Drug use: Not Currently Comment: Pain killers FAMILY HISTORY Family History Problem Relation Name Age of Onset Hypertension Mother Other (SDHA) Mother Asthma Father Diabetes Father Heart disease Father Stroke Father Kidney disease Father Atrial fibrillation Father COPD Father Hypertension Father Hyperlipidemia Father Atrial fibrillation Sister Breast cancer Mother's Sister Prostate cancer Mother's Brother Lung cancer Mother's Brother Breast cancer Maternal Grandmother Arthritis Paternal Grandmother Heart disease Paternal Grandmother Stroke Paternal Grandmother Atrial fibrillation Paternal Grandmother COPD Paternal Grandmother Diabetes Paternal Grandmother SURGICAL HISTORY Past Surgical History: Procedure Laterality Date EYE SURGERY 03/2020 APRIL Lau REVIEW OF SYSTEMS Review of Systems: Review of Systems All other systems reviewed and are negative. OBJECTIVE Objective: Physical Exam Constitutional: Appearance: Normal appearance. She is well-developed. Genitourinary: Vulva normal. Cardiovascular: Rate and Rhythm: Normal rate and regular rhythm. Pulmonary: Effort: Pulmonary effort is normal. Breath sounds: Normal breath sounds. Abdominal: General: Bowel sounds are normal. There is no distension. Palpations: Abdomen is soft. Tenderness: There is no abdominal tenderness. There is no guarding or rebound. Musculoskeletal: General: No swelling. Normal range of motion. Right lower leg: No edema. Left lower leg: No edema. Neurological: Mental Status: She is alert and oriented to person, place, and time. Skin: General: Skin is warm and dry. Psychiatric: Mood and Affect: Mood normal. Behavior: Behavior normal. Vitals and nursing note reviewed. Exam conducted with a ping pong table assembler present. Vitals: Estimated body mass index is 38.83 kg/m as calculated from the following: Height as of 02/15/24: 5' 3 . Weight as of 04/21/24: 219 lb 3.2 oz. BP: Patient's last menstrual period was 02/13/2024 (approximate). ASSESSMENT & PLAN ICD-10-CM 1. First trimester Z34.91 POCT urinalysis dipstick manually resulted 2. 13 weeks gestation of Z3A.13 CANCELED: POCT urinalysis dipstick manually resulted 3. Urinary tract infection without hematuria, site unspecified N39.0 Urine culture Patient presents today for urethral discomfort. Patient requests to wait for urine culture results for medication. No medications sent. Orders Placed This Encounter Procedures Urine culture POCT urinalysis dipstick manually resulted Follow Up: Patient is to return for regular OB Appt. Documented by Rosemary Hooper MA documented in this encounter [facility] 04-21-2024 History of Present illness Narrative Reason for Appointment: Patient ID: Lissa Rivas is a 29 y.o. female who presents for Amenorrhea Patient presents today for a Nurse OB Intake appointment. Patient is 9w5d with a Estimated Date of Delivery: 11/19/24 OB History Para Term AB Living 1 0 0 0 0 0 SAB IAB Ectopic Multiple Live Births 0 0 0 0 0 # Outcome Date GA Lbr Kavin/2nd Weight Sex Type Anes PTL Lv 1 Current Current Medications: has a current medication list which includes the following prescription(s): cholecalciferol and mv-min-fe fum-fa-dha. 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 Resolved Ambulatory Problems Diagnosis Date Noted Chronic fatigue syndrome 10/05/2022 Past Medical History: Diagnosis Date Asthma (CMS/HCC) GERD (gastroesophageal reflux disease) HSV (herpes simplex virus) infection PCOS (polycystic ovarian syndrome) Family History Problem Relation Name Age of Onset Hypertension Mother Other (SDHA) Mother Asthma Father Diabetes Father Heart disease Father Stroke Father Kidney disease Father Atrial fibrillation Father COPD Father Hypertension Father Hyperlipidemia Father Atrial fibrillation Sister Breast cancer Mother's Sister Prostate cancer Mother's Brother Lung cancer Mother's Brother Breast cancer Maternal Grandmother Arthritis Paternal Grandmother Heart disease Paternal Grandmother Stroke Paternal Grandmother Atrial fibrillation Paternal Grandmother COPD Paternal Grandmother Diabetes Paternal Grandmother Social History Tobacco Use Smoking status: Never Smokeless tobacco: Never Vaping Use Vaping status: Never Used Substance Use Topics Alcohol use: Not Currently Comment: Caffeine intake:less than 100 mg daily Drug use: Not Currently Comment: Pain killers Past Surgical History: Procedure Laterality Date EYE SURGERY 03/2020 PRK- Sid No Known Allergies Vitals: Estimated body mass index is 38.26 kg/m as calculated from the following: Height as of 02/15/24: 5' 3 . Weight as of 02/15/24: 216 lb. BP: Patient's last menstrual period was 02/13/2024 (approximate). Assessment/Plan Diagnoses and all orders for this visit: Missed menses - US OB transvaginal; Future - Type and screen; Future - ABO/Rh; Future - CBC and differential - Hemoglobin A1c - RPR - Rubella antibody, IgG - Hepatitis B surface antigen - Hepatitis C antibody - HIV-1 and HIV-2 antibodies - Urine culture - POCT , urine manually resulted - POCT urinalysis dipstick manually resulted , unspecified gestational age - Type and screen; Future - ABO/Rh; Future - CBC and differential - Hemoglobin A1c - RPR - Rubella antibody, IgG - Hepatitis B surface antigen - Hepatitis C antibody - HIV-1 and HIV-2 antibodies - Rapid drug screen, urine; Future Encounter for supervision of normal first in first trimester - Rapid drug screen, urine; Future 9 weeks gestation of Nurse Note: OB Intake: Patient presents today for first OB visit. Patients history has been reviewed in great detail including any potential risks. Patient signed consent forms and patient desires testing in both trimesters. Patient currently has no complaints and has been advised to drink 6-8 glasses of water a day, eat no raw or undercooked meat, and stay away from [facility]. Patient has also been advised to not change litter boxes and eat 6 small meals a day. Patient has been consulted regarding the do's and don'ts of . Patient was given labs and all questions and concerns were answered. Follow Up: Patient is to return in 4 weeks for routine OB appointment. Follow Up: Patient is to have labs drawn at directed and return to office for initial OB appointment with provider. Patient may call office as needed with any concerns or questions. Nurse Visit Completed by: Rosemary Hooper MA documented in this encounter [facility] 2024 Note HNO ID: [id number] Author: ORTEGA MORRISSEY APRN.CNP Service: ? Author Type: Nurse Practitioner Type: Progress Notes Filed: 2024 16:38 Note Text: Lissa Rivas here today for a scan. This is her 1st scan. 0 0 0 History of ectopic: No History of SAB: No History of pelvic/abdominal surgeries: No LMP 02/12, fertility medications used this cycle: let 5mg, date of LH surge: LH + 03/03, TI Latest Ref Rng 01/04/2023 ABO A Rh(D) Negative Antibody Screen Negative Type+Scr Expiration 01/07/2023 23:59 Historical Ab Scr Status NEGATIVE Rubella IgG, Qual Positive Negative ! Varicella Zoster IgG, Qual Positive Positive hCG levels: Latest Ref Rng 03/13/2024 03/15/2024 03/17/2024 hCG Quantitative, Blood <5.0 mIU/mL 21.9 (H) 87.6 (H) 190.7 (H) Dating LMP on: 02/13/2024 GA by LMP 7 w + 1 d KERA by LMP: 11/19/2024 Ultrasound examination on: 2024 GA by U/S based upon: CRL GA by U/S 6 w + 3 d KERA by U/S: 11/24/2024 Assigned: based on ultrasound (CRL), selected on 2024 Assigned GA 6 w + 3 d Assigned KERA: 11/24/2024 FHR: 119 Plan Move on to OB Ortega Morrissey APRN.CNP 2024 4:34 PM [facility] 2024 History of Present illness Narrative Lissa Rivas here today for a scan. This is her 1st scan. 0 0 0 History of ectopic: No History of SAB: No History of pelvic/abdominal surgeries: No LMP 02/12, fertility medications used this cycle: let 5mg, date of LH surge: LH + 03/03, TI Latest Ref Rng 01/04/2023 ABO A Rh(D) Negative Antibody Screen Negative Type+Scr Expiration 01/07/2023 23:59 Historical Ab Scr Status NEGATIVE Rubella IgG, Qual Positive Negative ! Varicella Zoster IgG, Qual Positive Positive hCG levels: Latest Ref Rng 03/13/2024 03/15/2024 03/17/2024 hCG Quantitative, Blood <5.0 mIU/mL 21.9 (H) 87.6 (H) 190.7 (H) Dating LMP on: 02/13/2024 GA by LMP 7 w + 1 d KERA by LMP: 11/19/2024 Ultrasound examination on: 2024 GA by U/S based upon: CRL GA by U/S 6 w + 3 d KERA by U/S: 11/24/2024 Assigned: based on ultrasound (CRL), selected on 2024 Assigned GA 6 w + 3 d Assigned KERA: 11/24/2024 FHR: 119 Plan Move on to OB Ortega Morrissey APRN.CNP 2024 4:34 PM documented in this encounter [facility] 03-27-2024 History of Present illness Narrative Name: Lissa Rivas Date/Time of Service:03/27/2024 3:01 PM :1995 Age: 28 y.o. Chief Complaint Chief Complaint Patient presents with Initial Visit Lissa Rivas is a 28 y.o. at 6w1d with a working estimated date of delivery of 11/19/2024, by Last Menstrual Period who presents for an initial visit. OB History Para Term AB Living 1 0 0 0 0 0 SAB IAB Ectopic Multiple Live Births 0 0 0 0 0 # Outcome Date GA Lbr Kavin/2nd Weight Sex Type Anes PTL Lv 1 Current Past Medical / Surgical History Past Medical History: Diagnosis Date Asthma (CMS/HCC) GERD (gastroesophageal reflux disease) PCOS (polycystic ovarian syndrome) Past Surgical History: Procedure Laterality Date EYE SURGERY 03/2020 APRIL Lau Family History Family History Problem Relation Name Age of Onset Hypertension Mother Other (SDHA) Mother Asthma Father Diabetes Father Heart disease Father Stroke Father Kidney disease Father Atrial fibrillation Father COPD Father Hypertension Father Hyperlipidemia Father Atrial fibrillation Sister Breast cancer Mother's Sister Prostate cancer Mother's Brother Lung cancer Mother's Brother Breast cancer Maternal Grandmother Arthritis Paternal Grandmother Heart disease Paternal Grandmother Stroke Paternal Grandmother Atrial fibrillation Paternal Grandmother COPD Paternal Grandmother Diabetes Paternal Grandmother Social History reports that she has never smoked. She has never used smokeless tobacco. She reports that she does not currently use alcohol. She reports that she does not currently use drugs. MEDICATIONS: Current Outpatient Medications on File Prior to Visit Medication Sig Dispense Refill cholecalciferol (Vitamin D-3) 50 MCG (1999 UT) tablet Take 2 tablets by mouth in the morning. MV-Min-Fe Fum-FA-DHA ( 1 PO) Take by mouth [DISCONTINUED] choriogonadotropin pam (Ovidrel) 250 MCG/0.5ML injection [DISCONTINUED] letrozole (Femara) 2.5 MG chemo tablet Take 2.5 mg by mouth every other day. [DISCONTINUED] medroxyPROGESTERone (Provera) 10 MG tablet [DISCONTINUED] metFORMIN (Glucophage) 500 MG tablet Take 2 tablets by mouth Daily [DISCONTINUED] progesterone 200 MG capsule Insert 200 mg into the vagina in the morning and 200 mg in the evening. No current facility-administered medications on file prior to visit. Allergies No Known Allergies Patient reports nausea and no vomiting. Discussed smaller meals, glendy products, OTC Vitamin B6 50mg BID and Unisom 25mg BID Patient reports taking daily vitamins. Genetic and Chromosomal testing discussed. Last PAP: 01/2024 WNL ASSESSMENT / PLAN Labs Ordered. Patient provided printed copy of orders to take with her to [facility] to have drawn today. Appointments scheduled for OBUS in [place] office on 04/12 and with [facility] on 05/01. 03/27/2024 3:01 PM documented in this encounter [facility] 03-20-2024 Progress note Formatting of t his note is different from the original. Date of Consult: 02/17/2024 Lissa Rivas is a 28 year old female presenting with the following history: HISTORY OF PRESENT ILLNESS: Lissa Rivas is a 28 year old female with Pt is here for follow up. No changes in history. She thinks she might have reaction from Ovidrel. August 18, 2023: Follow up PCOS, anovulatory infertility. S/p 3 cycles of Letrozole, cycle 34-42 days. Normal HSG. Partner had SA - told it was normal. Saw cancer genetic team 03/2023. Previous encounter on 04/07/2023: Pt is here for follow up. 1. PCOS - not respond to letrozole 2.5 mg. Dosed increase to 5 mg recently and she will get the prog done again on CD 21. 2. Elevated LFT - work up are all negative. Her PCP will repeat her LFT again in a few months. 3. Rubella non-immune. Patient aware. She will get the vaccine at the local pharmacy. She aware that she should not TTC for 30 days after taking the injection. 4. She has an appointment with cancer genetic team soon. 5. 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 Initial consult note on 01/04/2023: TTC January 2022. Has not used ocp since teenager. Was seen med endo for PCOS and placed on metformin. She self discontinue metformin last year and period never return. Using condoms prior Hx of PCOS diagnosed in 2019 through ultrasound and c/o abnormal hair growth, cycles usually q 3 months but has not had a cycle since Dec 2021 Has been spotting for 40+ days Using elle to track cycles, tried OPK for a few months but never has gotten a positive Treated for Chlamydia at age 16 healthy, non-smoker; no established pregnancies. Irregular period, hirsutism, ultrasound showed PCO appearing ovaries. Obstetric History T0 L0 SAB0 IAB0 Ectopic0 Multiple0 Live Births0 Fertility Evaluations and Treatments: Eval Checklist Results Date Comments HSG Normal 07/29/2023 Hysteroscopy Laparoscopy OPK (Ovulation Predictor Kit) Ovarian [place] AMH 10.91 High 01/04/2023 Saline Ultrasound Semen Analysis Normal 08/10/2023 Ultrasound Abnormal polycystic ovaries, otherwise normal 02/08/2023 Other (See comments) MENSTRUAL HISTORY: Menarche Age: 12 Length of Cycle: 34-42 days with Letrozole Irregular Days: 4-5 Menstrual Flow: Menstrual Symptoms: Patient's last menstrual period was 02/13/2024 (exact date). 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 Obesity due to excess calories PCOS (polycystic ovarian syndrome) Seasonal allergies PAST SURGICAL HISTORY Procedure Laterality Date EYE SURGERY HX 03/2020 PRK-Parschauer FAMILY HISTORY Problem Relation Age of Onset Hypertension Mother Asthma Father Diabetes Father Heart disease Father Stroke Father Kidney Disease Father Arrhythmia Father Atrial fibrillation COPD Father Hypertension Father Hyperlipidemia Father Arrhythmia Half-sister Atrial fibrillation Breast Cancer Maternal Grandmother 40 - 49 Arthritis Paternal Grandmother Stroke Paternal Grandmother COPD Paternal Grandmother Arrhythmia Paternal Grandmother Atrial fibrillation Heart disease Paternal Grandmother Diabetes Paternal Grandmother Prostate Cancer Maternal Uncle 40 - 49 metastatic Lung Cancer Maternal Uncle 45 - 49 Breast Cancer Maternal great-grandmother Breast Cancer Maternal Aunt 45 ETHNICITY: White Assessment and Plan Lissa Rivas is a 28 year old female with PCOS here for follow up. Plan: PCOS lab. Restart metformin. Bar Use hCG trigger instead of ovidrel due to possible side effects. Also, she might need hCG during IVF. Possible increase letrozole to 7.5 pending this IUI cycle. Follow up in Apr. This visit was conducted as a virtual visit via zoom. I have communicated my name and active licensure. The patient's identity and physical location were verified at the time of this visit. Either the patient or their legal direct marketing representative has been informed of the risks and benefits of -- and alternatives to -- treatment through a remote evaluation and consents to proceed with the evaluation remotely. I spent a total of 30 minutes on the date of the service which included preparing to see the patient, [id number] patient care, counseling and educating the patient/family/caregiver, ordering medications, tests, or procedures, communicating results to the patient/family/caregiver, and care coordination (not separately reported). MD Kim Branch MD [facility] 03-20-2024 Consult note Formatting of th is note is different from the original. Date of Consult: 02/17/2024 Lissa Rivas is a 28 year old female presenting with the following history: HISTORY OF PRESENT ILLNESS: Lissa Rivas is a 28 year old female with Pt is here for follow up. No changes in history. She thinks she might have reaction from Ovidrel. August 18, 2023: Follow up PCOS, anovulatory infertility. S/p 3 cycles of Letrozole, cycle 34-42 days. Normal HSG. Partner had SA - told it was normal. Saw cancer genetic team 03/2023. Previous encounter on 04/07/2023: Pt is here for follow up. 1. PCOS - not respond to letrozole 2.5 mg. Dosed increase to 5 mg recently and she will get the prog done again on CD 21. 2. Elevated LFT - work up are all negative. Her PCP will repeat her LFT again in a few months. 3. Rubella non-immune. Patient aware. She will get the vaccine at the local pharmacy. She aware that she should not TTC for 30 days after taking the injection. 4. She has an appointment with cancer genetic team soon. 5. 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 Initial consult note on 01/04/2023: TTC January 2022. Has not used ocp since teenager. Was seen med endo for PCOS and placed on metformin. She self discontinue metformin last year and period never return. Using condoms prior Hx of PCOS diagnosed in 2019 through ultrasound and c/o abnormal hair growth, cycles usually q 3 months but has not had a cycle since Dec 2021 Has been spotting for 40+ days Using elle to track cycles, tried OPK for a few months but never has gotten a positive Treated for Chlamydia at age 16 healthy, non-smoker; no established pregnancies. Irregular period, hirsutism, ultrasound showed PCO appearing ovaries. Obstetric History T0 L0 SAB0 IAB0 Ectopic0 Multiple0 Live Births0 Fertility Evaluations and Treatments: Eval Checklist Results Date Comments HSG Normal 07/29/2023 Hysteroscopy Laparoscopy OPK (Ovulation Predictor Kit) Ovarian [place]roy AMH 10.91 High 01/04/2023 Saline Ultrasound Semen Analysis Normal 08/10/2023 Ultrasound Abnormal polycystic ovaries, otherwise normal 02/08/2023 Other (See comments) MENSTRUAL HISTORY: Menarche Age: 12 Length of Cycle: 34-42 days with Letrozole Irregular Days: 4-5 Menstrual Flow: Menstrual Symptoms: Patient's last menstrual period was 02/13/2024 (exact date). 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 Obesity due to excess calories PCOS (polycystic ovarian syndrome) Seasonal allergies PAST SURGICAL HISTORY Procedure Laterality Date EYE SURGERY HX 03/2020 PRK-Sid FAMILY HISTORY Problem Relation Age of Onset Hypertension Mother Asthma Father Diabetes Father Heart disease Father Stroke Father Kidney Disease Father Arrhythmia Father Atrial fibrillation COPD Father Hypertension Father Hyperlipidemia Father Arrhythmia Half-sister Atrial fibrillation Breast Cancer Maternal Grandmother 40 - 49 Arthritis Paternal Grandmother Stroke Paternal Grandmother COPD Paternal Grandmother Arrhythmia Paternal Grandmother Atrial fibrillation Heart disease Paternal Grandmother Diabetes Paternal Grandmother Prostate Cancer Maternal Uncle 40 - 49 metastatic Lung Cancer Maternal Uncle 45 - 49 Breast Cancer Maternal great-grandmother Breast Cancer Maternal Aunt 45 ETHNICITY: White Assessment and Plan Lissa Rivas is a 28 year old female with PCOS here for follow up. Plan: PCOS lab. Restart metformin. Bar Use hCG trigger instead of ovidrel due to possible side effects. Also, she might need hCG during IVF. Possible increase letrozole to 7.5 pending this IUI cycle. Follow up in Apr. This visit was conducted as a virtual visit via zoom. I have communicated my name and active licensure. The patient's identity and physical location were verified at the time of this visit. Either the patient or their legal direct marketing representative has been informed of the risks and benefits of -- and alternatives to -- treatment through a remote evaluation and consents to proceed with the evaluation remotely. I spent a total of 30 minutes on the date of the service which included preparing to see the patient, [id number] patient care, counseling and educating the patient/family/caregiver, ordering medications, tests, or procedures, communicating results to the patient/family/caregiver, and care coordination (not separately reported). MD Kim Branch MD documented in this encounter [facility] 03-17-2024 Note HNO ID: [id number] Author: ORTEGA MORRISSEY APRN.JORDAN Service: ? Author Type: Nurse Practitioner Type: Progress Notes Filed: 03/17/2024 14:22 Note Text: [facility] New SERVICE DATE: 03/17/2024 SERVICE TIME: 1:56 PM NAME: Lissa Rivas VIRTUAL VISIT PROGRESS NOTE This is a virtual visit. It required patient-provider interaction for the medical decision making as documented below. Patient name and birthday verified: Yes Location of patient: [place] Persons Present: patient I have communicated my name and active licensure. The patient's identity and physical location were verified at the time of this visit. Either the patient or their legal direct marketing representative has been informed of the risks and benefits of -- and alternatives to -- treatment through a remote evaluation and consents to proceed with the evaluation remotely. Reason for visit: new , next steps 0 0 0 History of ectopic: No History of SAB: No History of pelvic/abdominal surgeries: No LMP 02/12, fertility medications used this cycle: let 5mg, date of LH surge: LH + 03/03, TI Latest Ref Rng 01/04/2023 ABO A Rh(D) Negative Antibody Screen Negative Type+Scr Expiration 01/07/2023 23:59 Historical Ab Scr Status NEGATIVE Rubella IgG, Qual Positive Negative ! Varicella Zoster IgG, Qual Positive Positive hCG levels: Latest Ref Rng 03/13/2024 03/15/2024 hCG Quantitative, Blood <5.0 mIU/mL 21.9 (H) 87.6 (H) Legend: (H) High Dating: Currently 4 weeks 5 days based off of LMP. Symptoms: Feeling well overall Pain: Denies, had some mild cramping on and off that stopped earlier this week Bleeding: Denies Nausea/Vomiting: Denies Current Medications: Current Outpatient Medications on File Prior to Visit Medication Sig metFORMIN ER (GLUCOPHAGE XR) 500 mg 24 hr tablet Take 3 tablets by mouth daily with breakfast. Start with 1 tablet daily and slowly increase the dose up to 3 tablets daily. progesterone micronized (PROMETRIUM) 200 mg capsule Use 1 capsule vaginally two times a day. PNV no.95/ferrous fum/folic ac ( ORAL) Take 1 tablet by mouth once daily. No current facility-administered medications on file prior to visit. Reviewed history, intake and most recent plan from primary [facility] provider. Diagnoses and all orders for this visit: Supervision of with history of infertility, first trimester - OBSTETRIC ULTRASOUND WHI; Future Next steps: further labwork needed: Repeat HCG 03/17 or 03/21 scan scheduled: 04/03, 111 medications to discontinue: Metformin Schedule with OB: Scheduled with local OB Ortega Morrissey APRN.VENEER JOINTER HELPER March 17, 2024 1:56 PM I spent a total of 20 minutes on the date of the service which included preparing to see the patient, [id number] patient care, completing clinical documentation, obtaining and/or reviewing separately obtained history, performing a medically appropriate examination, counseling and educating the patient/family/caregiver, ordering medications, tests, or procedures, independently interpreting results (not separately reported), communicating results to the patient/family/caregiver, and care coordination (not separately reported). To patients reading this note: Please be advised the primary purpose of this note is for me to communicate with myself and other members of your medical team. Standard sentence structure is not always used. Medical terminology and medical abbreviations may be used. There may be grammatical and typographical errors missed in proofreading. Please schedule the patient for the following- Location: [facility] Provider: Nurse Visit type: OB scan Reason for visit/appointment notes: OB scan Date: 04/03 Time (requested): 111 If slot is full, please schedule the closest open slot. Call to patient needed: no [facility] 03-17-2024 History of Present illness Narrative Images from the original note were not included. [facility] New SERVICE DATE: 03/17/2024 SERVICE TIME: 1:56 PM NAME: Lissa Rivas VIRTUAL VISIT PROGRESS NOTE This is a virtual visit. It required patient-provider interaction for the medical decision making as documented below. Patient name and birthday verified: Yes Location of patient: [place] Persons Present: patient I have communicated my name and active licensure. The patient's identity and physical location were verified at the time of this visit. Either the patient or their legal direct marketing representative has been informed of the risks and benefits of -- and alternatives to -- treatment through a remote evaluation and consents to proceed with the evaluation remotely. Reason for visit: new , next steps 0 0 0 History of ectopic: No History of SAB: No History of pelvic/abdominal surgeries: No LMP 02/12, fertility medications used this cycle: let 5mg, date of LH surge: LH + 03/03, TI Latest Ref Rng 01/04/2023 ABO A Rh(D) Negative Antibody Screen Negative Type+Scr Expiration 01/07/2023 23:59 Historical Ab Scr Status NEGATIVE Rubella IgG, Qual Positive Negative ! Varicella Zoster IgG, Qual Positive Positive hCG levels: Latest Ref Rng 03/13/2024 03/15/2024 hCG Quantitative, Blood <5.0 mIU/mL 21.9 (H) 87.6 (H) Legend: (H) High Dating: Currently 4 weeks 5 days based off of LMP. Symptoms: Feeling well overall Pain: Denies, had some mild cramping on and off that stopped earlier this week Bleeding: Denies Nausea/Vomiting: Denies Current Medications: Current Outpatient Medications on File Prior to Visit Medication Sig metFORMIN ER (GLUCOPHAGE XR) 500 mg 24 hr tablet Take 3 tablets by mouth daily with breakfast. Start with 1 tablet daily and slowly increase the dose up to 3 tablets daily. progesterone micronized (PROMETRIUM) 200 mg capsule Use 1 capsule vaginally two times a day. PNV no.95/ferrous fum/folic ac ( ORAL) Take 1 tablet by mouth once daily. No current facility-administered medications on file prior to visit. Reviewed history, intake and most recent plan from primary [facility] provider. Diagnoses and all orders for this visit: Supervision of with history of infertility, first trimester - OBSTETRIC ULTRASOUND WHI; Future Next steps: further labwork needed: Repeat HCG 03/17 or 03/21 scan scheduled: 1109 medications to discontinue: Metformin Schedule with OB: Scheduled with local OB Ortega Morrissey APRN.CNP March 17, 2024 1:56 PM I spent a total of 20 minutes on the date of the service which included preparing to see the patient, [id number] patient care, completing clinical documentation, obtaining and/or reviewing separately obtained history, performing a medically appropriate examination, counseling and educating the patient/family/caregiver, ordering medications, tests, or procedures, independently interpreting results (not separately reported), communicating results to the patient/family/caregiver, and care coordination (not separately reported). To patients reading this note: Please be advised the primary purpose of this note is for me to communicate with myself and other members of your medical team. Standard sentence structure is not always used. Medical terminology and medical abbreviations may be used. There may be grammatical and typographical errors missed in proofreading. Please schedule the patient for the following- Location: [facility] Provider: Nurse Visit type: OB scan Reason for visit/appointment notes: OB scan Date: 04/03 Time (requested): 1110 If slot is full, please schedule the closest open slot. Call to patient needed: no documented in this encounter [facility] 03-13-2024 Telephone encounter Note Patient calls with positive urine test. 0 0 0 History of ectopic: No History of SAB: No History of pelvic/abdominal surgeries: No LMP 02/12, fertility medications used this cycle: let 5mg, date of LH surge: unsure, TI Latest Ref Rng 01/04/2023 ABO A Rh(D) Negative Antibody Screen Negative Type+Scr Expiration 01/07/2023 23:59 Historical Ab Scr Status NEGATIVE Rubella IgG, Qual Positive Negative ! Varicella Zoster IgG, Qual Positive Positive Current medications: Current Outpatient Medications Medication Sig letrozole (FEMARA) 2.5 mg tablet Take 3 tablets by mouth once daily. Menstrual cycle day 3-7 metFORMIN ER (GLUCOPHAGE XR) 500 mg 24 hr tablet Take 3 tablets by mouth daily with breakfast. Start with 1 tablet daily and slowly increase the dose up to 3 tablets daily. chorionic gonadotropin (PREGNYL) 10,000 unit solr 10,000 Units as directed. Mix vials as directed per nursing in office. Administer subcutaneous. Syringe with Needle, Disp, (SYRINGE 3CC/20GX1 ) 3 mL 20 gauge x 1 To be used to mix, draw up and inject HCG trigger Needle, Disp, 27 G (BD DISPOSABLE NEEDLES) 27 gauge x 1/2 ndle To be used to inject HCG trigger progesterone micronized (PROMETRIUM) 200 mg capsule Use 1 capsule vaginally two times a day. PNV no.95/ferrous fum/folic ac ( ORAL) Take 1 tablet by mouth once daily. No current facility-administered medications for this visit. Advised normal symptoms of and s/s of need for follow up. Labs ordered: HCG x2 NEEL Morrissey APRN.CNP March 13, 2024 1:37 PM [facility] 03-13-2024 Miscellaneous Notes Patient calls with positive urine test. 0 0 0 History of ectopic: No History of SAB: No History of pelvic/abdominal surgeries: No LMP 02/12, fertility medications used this cycle: let 5mg, date of LH surge: unsure, TI Latest Ref Rng 01/04/2023 ABO A Rh(D) Negative Antibody Screen Negative Type+Scr Expiration 01/07/2023 23:59 Historical Ab Scr Status NEGATIVE Rubella IgG, Qual Positive Negative ! Varicella Zoster IgG, Qual Positive Positive Current medications: Current Outpatient Medications Medication Sig letrozole (FEMARA) 2.5 mg tablet Take 3 tablets by mouth once daily. Menstrual cycle day 3-7 metFORMIN ER (GLUCOPHAGE XR) 500 mg 24 hr tablet Take 3 tablets by mouth daily with breakfast. Start with 1 tablet daily and slowly increase the dose up to 3 tablets daily. chorionic gonadotropin (PREGNYL) 10,000 unit solr 10,000 Units as directed. Mix vials as directed per nursing in office. Administer subcutaneous. Syringe with Needle, Disp, (SYRINGE 3CC/20GX1 ) 3 mL 20 gauge x 1 To be used to mix, draw up and inject HCG trigger Needle, Disp, 27 G (BD DISPOSABLE NEEDLES) 27 gauge x 1/2 ndle To be used to inject HCG trigger progesterone micronized (PROMETRIUM) 200 mg capsule Use 1 capsule vaginally two times a day. PNV no.95/ferrous fum/folic ac ( ORAL) Take 1 tablet by mouth once daily. No current facility-administered medications for this visit. Advised normal symptoms of and s/s of need for follow up. Labs ordered: HCG x2 FYI Dr. Bill Morrissey, VISUAL AID EXPERT.JORDAN March 13, 2024 1:37 PM Patient states she skipped this month and has +hpt, please follow up with patient. documented in this encounter [facility] 03-13-2024 Telephone encounter Note Patient states she skipped this month and has +hpt, please follow up with patient. [facility] Work Phone: 03-08-2024 History of Present illness Narrative Impression: 1. Otalgia of both ears 2. Temporomandibular joint disorder 3. Chronic allergic rhinitis fluticasone (Flonase) 50 mcg/actuation nasal spray 4. Postnasal drip RECOMMENDATIONS/PLAN : I explained to the patient that her ear I want her to continue to wear her nightguard and I would be happy to refer her to a dentist who specializes in TMJ disorder and facial pain. I also want her to restart Flonase nasal spray-2 puffs each nostril daily for the next few months. This will limit congestion and postnasal drip. She can also rinse her nose using saline rinses. Pain appears to be coming from her TMJ joints bilaterally. This electronic medical record note was created with the use of voice recognition software. Despite proofreading, typographical or grammatical errors may be present that could affect meaning of content Subjective Patient ID: Emilee Rivas is a 28 y.o. female who presents to the office today complaining of severe sharp ear pain that comes and goes and then typically she will develop a migraine headache afterwards. She does have a history of clicking and popping of her TMJ joints bilaterally. She also has a nightguard that she wears at night because apparently she does grind her teeth as well. She is also complaining of some nasal congestion with popping in her left ear. She has been on Flonase in the past but nothing recent. No recent fever or chills or pus draining from the sinuses. ROS: A detailed 12 system review of systems is noted on the intake form has been reviewed with the patient with details noted in the HPI and scanned into the patient's medical record. Objective History reviewed. No pertinent past medical history. History reviewed. No pertinent surgical history. No Known Allergies Current Outpatient Medications: chorionic gonadotropin (Pregnyl) 10,000 unit injection, 10,000 Units., Disp: , Rfl: letrozole (Femara) 2.5 mg tablet, Take 1 tablet (2.5 mg total) by mouth every other day., Disp: , Rfl: metFORMIN (Glucophage) 500 mg tablet, Take 2 tablets (1,000 mg) by mouth once daily., Disp: , Rfl: fluticasone (Flonase) 50 mcg/actuation nasal spray, Administer 2 sprays into each nostril once daily., Disp: 48 mL, Rfl: 3 Tobacco Use: Low Risk (03/08/2024) Patient History Smoking Tobacco Use: Never Smokeless Tobacco Use: Never Passive Exposure: Not on file Alcohol Use: Not At Risk (02/15/2024) Received from [facility] AUDIT-C Frequency of Alcohol Consumption: Never Average Number of Drinks: Patient does not drink Frequency of Binge Drinking: Never Social History Substance and Sexual Activity Drug Use Not on file Physical Exam: Visit Vitals BP 128/90 Temp 36.3 C (97.4 F) (Temporal) Ht 1.6 m (5' 3 ) Wt 103 kg (226 lb) BMI 40.03 kg/m Smoking Status Never BSA 2.14 m General: Patient is alert, oriented, cooperative in no apparent distress. Head: Normocephalic, atraumatic. Eyes: PERRL, EOMI, Conjunctiva is clear. No nystagmus. Ears: Right Ear-- Pinna is normal. External auditory canal is patent. Tympanic membrane is [intact, translucent and has good mobility with my pneumatic otoscope. No effusion]. Mastoid is nontender. Left ear-- Pinna is normal. External auditory canal is patent. Tympanic membrane is [intact, translucent and has good mobility with my pneumatic otoscope. No effusion]. Mastoid is nontender. Nose: Septum is relatively straight. No septal perforation or lesions. No septal hematoma/ seroma. No signs of bleeding. Inferior turbinates are moderately swollen and pale. No evidence of intranasal polyps. No infectious drainage. Throat: Floor of mouth is clear, no masses. Tongue appears normal, no lesions or masses. Gums, gingiva, buccal mucosa appear pink and moist, no lesions. Teeth are in good repair. No obvious dental infections. Peritonsillar regions appear symmetric without swelling. Hard and soft palate appear normal, no obvious cleft. Uvula is midline. TMJ: She had significant clicking and popping with tenderness to palpation left greater than right Oropharynx: No lesions. Retropharyngeal wall is flat. No active postnasal drip. Neck: Supple, no lymphadenopathy. No masses. Salivary Glands: Symmetric bilaterally. No palpable masses. No evidence of acute infection or salivary stones Neurologic: Cranial Nerves 2-12 are grossly intact without focal deficits. Cerebellar function testing is normal. Results: I reviewed her recent audiogram and her hearing is within normal limits for both ears. Tympanic membrane's have normal mobility on tympanometry. Word recognition scores 92% in the right ear and 96% in the left ear. Speech sales receptionist threshold is 10 dB in the right ear and 5 dB in the left ear. Procedure: [] Gabriel Blackwell DO documented in this encounter [facility] Work Phone: 02-28-2024 Telephone encounter Note Spoke with Thao, Plan to continue with OPK at home and timed intercourse. Will not proceed with IUI this cycle. Would like to confirm ovulation with progesterone if she gets a +OPK. Otherwise, will plan for increased letrozole dose with next cycle/monitoring and IUI. The following approved medication requests have been transmitted electronically. Requested Prescriptions Signed Prescriptions Disp Refills letrozole (FEMARA) 2.5 mg tablet 15 tablet 2 Sig: Take 3 tablets by mouth once daily. Menstrual cycle day 3-7 Authorizing Provider: ORTEGA MORRISSEY APRN.CNP February 28, 2024 11:54 AM [facility] 02-28-2024 Miscellaneous Notes Spoke with Thao, Plan to continue with OPK at home and timed intercourse. Will not proceed with IUI this cycle. Would like to confirm ovulation with progesterone if she gets a +OPK. Otherwise, will plan for increased letrozole dose with next cycle/monitoring and IUI. The following approved medication requests have been transmitted electronically. Requested Prescriptions Signed Prescriptions Disp Refills letrozole (FEMARA) 2.5 mg tablet 15 tablet 2 Sig: Take 3 tablets by mouth once daily. Menstrual cycle day 3-7 Authorizing Provider: ORTEGA MORRISSEY APRN.CNP February 28, 2024 11:54 AM Pt is not financially clear yet should she still schedule it after she pays documented in this encounter [facility] 02-28-2024 Telephone encounter Note Pt is not financially clear yet should she still schedule it after she pays [facility] 02-23-2024 Note HNO ID: [id number] Author: ORTEGA MORRISSEY APRN.CNP Service: ? Author Type: Nurse Practitioner Type: Progress Notes Filed: 02/23/2024 13:56 Note Text: Lissa Rivas is here today for a midcycle scan. Lead follicle: 11 Plan: repeat scan 02/24 Ortega Morrissey APRN.CNP February 23, 2024 1:54 PM Please schedule the patient for the following- Location: [facility] Provider: Nurse Visit type: midcycle Reason for visit/appointment notes: midcycle Date: 02/24 Time (requested): 0730 If slot is full, please schedule the closest open slot. Call to patient needed: no [facility] 02-23-2024 Note HNO ID: [id number] Author: PAULA HESTER RN Service: ? Author Type: Registered Nurse Type: Progress Notes Filed: 02/23/2024 07:46 Note Text: The patient is here today for follicular ultrasound and blood work. The patient reports no problems or complaints. Ultrasound and blood will be reviewed by the physician, the flow sheet will be updated and instructions will be communicated to the patient. Paula Hester RN February 23, 2024 7:46 AM [facility] 02-23-2024 History of Present illness Narrative The patient is here today for follicular ultrasound and blood work. The patient reports no problems or complaints. Ultrasound and blood will be reviewed by the physician, the flow sheet will be updated and instructions will be communicated to the patient. Paula Hester RN February 23, 2024 7:46 AM documented in this encounter [facility] 02-21-2024 Telephone encounter Note Medication send the CS specialty on 02/17. Ortega Morrissey APRN.CNP February 21, 2024 10:39 AM [facility] 02-21-2024 Miscellaneous Notes Medication send the CS specialty on 02/17. Ortega Morrissey APRN.CNP February 21, 2024 10:39 AM Ne[facility] hcg [facility] documented in this encounter [facility] 02-21-2024 Telephone encounter Note Needs hcg called [facility] 02-17-2024 Plan of care note Lissa Rivas is a 28 year old female with PCOS here for follow up. Plan: PCOS lab. Restart metformin. Bar Use hCG trigger instead of ovidrel due to possible side effects. Also, she might need hCG during IVF. Possible increase letrozole to 7.5 pending this IUI cycle. Follow up in Apr. This visit was conducted as a virtual visit via zoom. I have communicated my name and active licensure. The patient's identity and physical location were verified at the time of this visit. Either the patient or their legal direct marketing representative has been informed of the risks and benefits of -- and alternatives to -- treatment through a remote evaluation and consents to proceed with the evaluation remotely. I spent a total of 30 minutes on the date of the service which included preparing to see the patient, [id number] patient care, counseling and educating the patient/family/caregiver, ordering medications, tests, or procedures, communicating results to the patient/family/caregiver, and care coordination (not separately reported). Kim Khan MD [facility] 02-17-2024 Miscellaneous Notes Lissa Rivas is a 28 year old female with PCOS here for follow up. Plan: PCOS lab. Restart metformin. Bar Use hCG trigger instead of ovidrel due to possible side effects. Also, she might need hCG during IVF. Possible increase letrozole to 7.5 pending this IUI cycle. Follow up in Apr. This visit was conducted as a virtual visit via zoom. I have communicated my name and active licensure. The patient's identity and physical location were verified at the time of this visit. Either the patient or their legal direct marketing representative has been informed of the risks and benefits of -- and alternatives to -- treatment through a remote evaluation and consents to proceed with the evaluation remotely. I spent a total of 30 minutes on the date of the service which included preparing to see the patient, [id number] patient care, counseling and educating the patient/family/caregiver, ordering medications, tests, or procedures, communicating results to the patient/family/caregiver, and care coordination (not separately reported). Kim Khan MD documented in this encounter [facility] 02-15-2024 History of Present illness Narrative Images from the original note were not included. Robles Goldsmith, DO Obstetrics and Gynecology Lissa Rivas 1995 02/15/24 [id number] Yearly Wellness Exam Chief Complaint Patient presents with Gynecologic Exam LMP: 02-13-24 regular, monthly, heavy flow, lasts 3-4 days BC: None- seeing fertility specialist Last pap 11-18-22 neg. Denies breast, urinary, or bowel concerns. Contraception Taking medroxyprogesterone and progesterone. vaginal odor C/o recurring vaginal odor each time after intercourse. Does not think fishy odor, but strong. Unsure if discharge is present. Visit Vitals BP 136/84 Ht 5' 3 Wt 216 lb LMP 02/13/2024 (Approximate) BMI 38.26 kg/m OB Status Having periods Smoking Status Never BSA 2.09 m OB History Para Term AB Living 0 0 0 0 0 0 SAB IAB Ectopic Multiple Live Births 0 0 0 0 0 Current Outpatient Medications Medication Sig Dispense Refill choriogonadotropin pam (Ovidrel) 250 MCG/0.5ML injection medroxyPROGESTERone (Provera) 10 MG tablet progesterone 200 MG capsule Insert 200 mg into the vagina in the morning and 200 mg in the evening. cholecalciferol (Vitamin D-3) 50 MCG (1999) tablet Take 2 tablets by mouth in the morning. letrozole (Femara) 2.5 MG chemo tablet Take 2.5 mg by mouth every other day. metFORMIN (Glucophage) 500 MG tablet Take 2 tablets by mouth Daily No current facility-administered medications for this visit. No Known Allergies Past Surgical History: Procedure Laterality Date EYE SURGERY 03/2020 APRIL Lau Past Medical History: Diagnosis Date Asthma (CMS/HCC) GERD (gastroesophageal reflux disease) PCOS (polycystic ovarian syndrome) ROS Const: Denies appetite change, fever, chills. Allergy: Denies medication reaction. Ocular: Denies visual acuity change. ENT: Denies hearing change. Endoc: Denies weight loss. Resp: Denies dyspnoea, wheezing. Cardiac: Denies angina, palpitations. GI: Denies nausea, vomiting. Haem: Denies bleeding. : Denies incontinence. MSK: Denies arthralgias, joint oedema. Derm: Denies rash, hair loss. Neuro: Denies ataxia, tremor. Also see HPI for elements of ROS documented therein and for details of positive findings, which shall supersede the foregoing. EXAM GENERAL EXAMINATION alert oriented well developed, well nourished. HEAD: normocephalic atraumatic. EYES: sclera anicteric. EARS: no obvious hearing deficit. NECK/THYROID: neck supple no cervical lymphadenopathy no thyromegaly. LYMPH NODES: no axillary, supraclavicular or inguinal adenopathy. SKIN: warm and dry. HEART: regular rate and rhythm. LUNGS: clear to auscultation bilaterally. CHEST:axillary nodes grossly normal. BREASTS:no masses palpable bilaterally, normal nipples bilaterally - everted -finely cystic - dense - well supported- axilla negative. ABDOMEN: soft, nontender, nondistended, no masses palpable. BACK: no costovertebral angle tenderness, no obvious scoliosis/kyphosis. 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 EXTREMITIES no edema. NEUROLOGIC: alert and oriented. PSYCH: cooperative with exam. ICD-10-CM 1. Encounter for gynecological examination without abnormal finding Z01.419 Pelvic and breast exam completed. Findings of today's exam discussed with the patient. Continue MSBE. Ca/Vit D recommendations reviewed with the patient. The patient is to contact the office with any changes to her gynecological condition or any changes with breast or bleeding. The patient is to return in 1 year or as needed 2. Screening for malignant neoplasm of cervix Z12.4 IGP,rfxAptima HPV all,16/18,45 Thinprep collected. Will notify patient if results are abnormal. 3. Desire for Z31.9 Discussed desire for , has been following Dr. Khan. Was told PCOS, now ovulating with help of medication. No tubal blockage and has high sperm count. Plenty of exposures. Just waiting for . 4. BV (bacterial vaginosis) N76.0 POCT trichomonas manually resulted B96.89 Discussed chronic BV after intercourse, notices odor. Wet mount negative in office. Health track swab sent out. She works from home for [employer]. Entered by Adilene Ford MA acting as scribe for Dr. Robles Goldsmith. Signature Adilene Ford MA Date 02/15/24 . Time 3:12 PM . The documentation recorded by the scribe accurately reflects the service(s) I personally performed and the decisions I made. Signature Jordan Goldsmith D.O. Date 02/15/24 Time 5:00PM. documented in this encounter [facility] 02-15-2024 Telephone encounter Note Spoke with Thao, states she was using OPKs last cycle and never got an LH surge. Had two weeks of high fertility but no peak. Cycle was normal length LMP 02/12 Would like to do monitoring/trigger this cycle. Flowsheet/Episode updated. Ortega Morrissey APRN.CNP February 15, 2024 1:49 PM Please schedule the patient for the following- Location: [facility] Provider: nurse Visit type: midcycle Reason for visit/appointment notes: midcycle Date: 02/22 Time (requested): 0700 If slot is full, please schedule the closest open slot. Call to patient needed: no [facility] 02-15-2024 Miscellaneous Notes Spoke with Thao, states she was using OPKs last cycle and never got an LH surge. Had two weeks of high fertility but no peak. Cycle was normal length LMP 02/12 Would like to do monitoring/trigger this cycle. Flowsheet/Episode updated. Ortega Morrissey APRN.CNP February 15, 2024 1:49 PM Please schedule the patient for the following- Location: [facility] Provider: nurse Visit type: midcycle Reason for visit/appointment notes: midcycle Date: 02/22 Time (requested): 0700 If slot is full, please schedule the closest open slot. Call to patient needed: no Patient states this past month in January she did not ovulate so she did not go through with iui, please follow up with patient. documented in this encounter [facility] 02-15-2024 Telephone encounter Note Patient states this past month in January she did not ovulate so she did not go through with iui, please follow up with patient. [facility] [facility] Work Phone: 01-14-2024 Telephone encounter Note Spoke with Lissa, She is planning to use OPK only this cycle. Jeferson call with LH surge. Ortega Morrissey APRN.CNP January 14, 2024 4:17 PM [facility] 01-14-2024 Miscellaneous Notes Spoke with Lissa, She is planning to use OPK only this cycle. Jeferson call with LH surge. Ortega Morrissey APRN.CNP January 14, 2024 4:17 PM Pt started cycle 01/12 and would like to discuss plan for scheduling iui documented in this encounter [facility] 01-14-2024 Telephone encounter Note Pt started cycle 10/17 and would like to discuss plan for scheduling iui [facility] 12-31-2023 Note HNO ID: [id number] Author: ORTEGA MORRISSEY APRN.CNP Service: ? Author Type: Nurse Practitioner Type: Procedures Filed: 12/31/2023 10:26 Note Text: WHI GAYATHRI IUI PROCEDURE NOTE Date: 12/31/2023 Primary Proceduralist: Ortega Morrissey APRN.CNP Consents and Labels Consent Signed: Informed Consent obtained and on the chart Labels Verified With Patient: Yes Indications: Lissa Rivas, is a 28 year old female here today for intrauterine insemination. IUI # Series 1 Cycle 3. Cycle Day: 20 Last menstrual period: 12/12/2023 [place] Protocol: UNIVERSAL PROTOCOL / SAFETY CHECKLIST Procedure to be Performed: IUI Sign In: A Moment of CARE was completed. Personnel directly involved with the procedure wore the appropriate PPE (Personal Protective Equipment). Patient/Surrogate Stated/Verified: PATIENT VERIFIED(optional for EMERGENT procedures): Patient name, Date of , Relevant allergies, and The intended procedure Time Out Communication: Intended patient and procedure match the source documents. Consent documented and matches the intended procedure. Sign Out: SIGN OUT (optional for EMERGENT procedures): No specimen collected. All instruments, equipment, possible retained foreign bodies accounted for. Post-procedure follow-up management communicated and Plan of Care Visit completed when applicable. Ortega Morrissey APRN.CNP IUI IUI Date: 12/31/23 Partner's Name: Brenton Rivas IUI Time: 10:16 AM EDT Partner's : 08/07/1993 IUI #: Series 1 Cycle 3 Partner's Partner's Ethnicity/Race: NOT or Patient's LMP: 12/12/23 Cycle Day: 20 Pre-Procedure Diagnosis: Infertility Post-Procedure Diagnosis: Infertility Cycle Meds: Letrozole 5 mg Luteal Phase Progesterone: Prometrium Frequency: Twice a day Starting On: 01/02/24 Trigger: LH Surge Date (Comment: 12/30/2023) Catheter Type: Curve catheter Tenaculum: No Catheter passed: Easy Complications: None Sperm Information: Source of Sperm: Partner Ejaculated: Yes Fresh/Frozen: Fresh TMC (total motile count of sperm after wash): 60.2 million Cycle reviewed, all questions answered. Pt instructed to take a test in 17 days if no menses and call with results. SIGNATURE: Ortega Morrissey APRN.CNP PATIENT NAME: Lissa Rivas DATE: December 31, 2023 TIME: 10:25 AM [facility] 12-31-2023 Procedure note WHI GAYATHRI IUI PROCEDURE NOTE Date: 12/31/2023 Primary Proceduralist: Ortega Morrissey APRN.CNP Consents and Labels Consent Signed: Informed Consent obtained and on the chart Labels Verified With Patient: Yes Indications: Lissa Rivas, is a 28 year old female here today for intrauterine insemination. IUI # Series 1 Cycle 3. Cycle Day: 20 Last menstrual period: 12/12/2023 [place] Protocol: UNIVERSAL PROTOCOL / SAFETY CHECKLIST Procedure to be Performed: IUI Sign In: A Moment of CARE was completed. Personnel directly involved with the procedure wore the appropriate PPE (Personal Protective Equipment). Patient/Surrogate Stated/Verified: PATIENT VERIFIED(optional for EMERGENT procedures): Patient name, Date of , Relevant allergies, and The intended procedure Time Out Communication: Intended patient and procedure match the source documents. Consent documented and matches the intended procedure. Sign Out: SIGN OUT (optional for EMERGENT procedures): No specimen collected. All instruments, equipment, possible retained foreign bodies accounted for. Post-procedure follow-up management communicated and Plan of Care Visit completed when applicable. Ortega Morrissey APRN.CNP IUI IUI Date: 12/31/23 Partner's Name: Brenton Rivas IUI Time: 10:16 AM EDT Partner's : [birth year]/1993 IUI #: Series 1 Cycle 3 Partner's Partner's Ethnicity/Race: NOT or Patient's LMP: 12/12/23 Cycle Day: 20 Pre-Procedure Diagnosis: Infertility Post-Procedure Diagnosis: Infertility Cycle Meds: Letrozole 5 mg Luteal Phase Progesterone: Prometrium Frequency: Twice a day Starting On: 01/02/24 Trigger: LH Surge Date (Comment: 12/30/2023) Catheter Type: Curve catheter Tenaculum: No Catheter passed: Easy Complications: None Sperm Information: Source of Sperm: Partner Ejaculated: Yes Fresh/Frozen: Fresh TMC (total motile count of sperm after wash): 60.2 million Cycle reviewed, all questions answered. Pt instructed to take a test in 17 days if no menses and call with results. SIGNATURE: Ortega Morrissey APRN.CNP PATIENT NAME: Lissa Rivas DATE: December 31, 2023 TIME: 10:25 AM [facility] 12-31-2023 Procedure note WHI GAYATHRI IUI PROCEDURE NOTE Date: 12/31/2023 Primary Proceduralist: Ortega Morrissey APRN.CNP Consents and Labels Consent Signed: Informed Consent obtained and on the chart Labels Verified With Patient: Yes Indications: Lissa Rivas, is a 28 year old female here today for intrauterine insemination. IUI # Series 1 Cycle 3. Cycle Day: 20 Last menstrual period: 12/12/2023 [place] Protocol: UNIVERSAL PROTOCOL / SAFETY CHECKLIST Procedure to be Performed: IUI Sign In: A Moment of CARE was completed. Personnel directly involved with the procedure wore the appropriate PPE (Personal Protective Equipment). Patient/Surrogate Stated/Verified: PATIENT VERIFIED(optional for EMERGENT procedures): Patient name, Date of , Relevant allergies, and The intended procedure Time Out Communication: Intended patient and procedure match the source documents. Consent documented and matches the intended procedure. Sign Out: SIGN OUT (optional for EMERGENT procedures): No specimen collected. All instruments, equipment, possible retained foreign bodies accounted for. Post-procedure follow-up management communicated and Plan of Care Visit completed when applicable. Ortega Morrissey APRN.CNP IUI IUI Date: 12/31/23 Partner's Name: Brenton Rivas IUI Time: 10:16 AM EDT Partner's : [birth year]/1993 IUI #: Series 1 Cycle 3 Partner's Partner's Ethnicity/Race: NOT or Patient's LMP: 12/12/23 Cycle Day: 20 Pre-Procedure Diagnosis: Infertility Post-Procedure Diagnosis: Infertility Cycle Meds: Letrozole 5 mg Luteal Phase Progesterone: Prometrium Frequency: Twice a day Starting On: 01/02/24 Trigger: LH Surge Date (Comment: 12/30/2023) Catheter Type: Curve catheter Tenaculum: No Catheter passed: Easy Complications: None Sperm Information: Source of Sperm: Partner Ejaculated: Yes Fresh/Frozen: Fresh TMC (total motile count of sperm after wash): 60.2 million Cycle reviewed, all questions answered. Pt instructed to take a test in 17 days if no menses and call with results. SIGNATURE: Ortega Morrissey APRN.CNP PATIENT NAME: Lissa Rivas DATE: December 31, 2023 TIME: 10:25 AM documented in this encounter [facility] 12-31-2023 Nurse Note Safety Coordinator offered: Patient declines. [facility] 12-31-2023 Nurse Note Safety Coordinator offered: Patient declines. documented in this encounter [facility] 12-21-2023 History of Present illness Narrative pt using LH surge strips and will call to irvin Grewal RN December 21, 2023 2:32 PM Follicular Ultrasound Monitoring Visit Patient here for follicle monitoring and/or endometrial assessment, via ultrasound, and lab testing. See imaging documentation and GAYATHRI cycle flow sheet for final report and plan. Ultrasound images assessed for follicular growth and maturation as well as endometrial development. Hormone lab values assessed. Treatment plan discussed with Fertility Team and plan provided to patient via a Fertility rock climbing team member. Kim Khan MD documented in this encounter [facility] 12-21-2023 Note HNO ID: [id number] Author: ROBIN GREWAL RN Service: ? Author Type: Registered Nurse Type: Progress Notes Filed: 12/21/2023 14:32 Note Text: pt using LH surge strips and [facility] Robin Grewal RN December 21, 2023 2:32 PM [facility] 12-21-2023 Note HNO ID: [id number] Author: FEDE HAIRSTON MD Service: ? Author Type: Physician Type: Progress Notes Filed: 12/21/2023 14:32 Note Text: Follicular Ultrasound Monitoring Visit Patient here for follicle monitoring and/or endometrial assessment, via ultrasound, and lab testing. See imaging documentation and GAYATHRI cycle flow sheet for final report and plan. Ultrasound images assessed for follicular growth and maturation as well as endometrial development. Hormone lab values assessed. Treatment plan discussed with Fertility Team and plan provided to patient via a Fertility rock climbing team member. Kim Khan MD [facility] 12-13-2023 Telephone encounter Note LMP 12/11 Plan: Let 5mg, trigger, IUI#2 Flowsheet/episode created Ortega Morrissey APRN.CNP December 13, 2023 4:42 PM Please schedule the patient for the following- Location: [place] Provider: Nurse Visit type: Midcycle Reason for visit/appointment notes: Midcycle Date: 12/20 Time (requested): 730 If slot is full, please schedule the closest open slot. Call to patient needed: no [facility] 12-13-2023 Miscellaneous Notes LMP 12/11 Plan: Let 5mg, trigger, IUI#2 Flowsheet/episode created Ortega Morrissey APRN.CNP December 13, 2023 4:42 PM Please schedule the patient for the following- Location: [place] Provider: Nurse Visit type: Midcycle Reason for visit/appointment notes: Midcycle Date: 12/20 Time (requested): 730 If slot is full, please schedule the closest open slot. Call to patient needed: no documented in this encounter [facility] 11-28-2023 Note HNO ID: [id number] Author: EVANGELINA PAINTER, ? Service: ? Author Type: Parts Lister Type: Progress Notes Filed: 11/28/2023 11:00 Note Text: IUI Pre: 72 M/ml, 63% Post: 73 M/ml, 88% Insem # 44.8 million [facility] 11-28-2023 History of Present illness Narrative IUI Pre: 72 M/ml, 63% Post: 73 M/ml, 88% Insem # 44.8 million IUI specimen released to provider Evangelina Painter November 28, 2023 10:48 AM documented in this encounter [facility] 11-28-2023 Note HNO ID: [id number] Author: DESHAWN RIOJAS MD Service: ? Author Type: Physician Type: Procedures Filed: 11/28/2023 10:54 Note Text: WHI GAYATHRI IUI PROCEDURE NOTE Date: 11/28/2023 Primary Proceduralist: Deshawn Riojas MD, Sandra Cruz MD Consents and Labels Consent Signed: Informed Consent obtained and on the chart Labels Verified With Patient: Yes Indications: Lissa Rivas, is a 28 year old female here today for intrauterine insemination. IUI # . Cycle Day: 13 Last menstrual period: 11/12/2023 [place] Protocol: UNIVERSAL PROTOCOL / SAFETY CHECKLIST Procedure to be Performed: IUI Sign In: A Moment of CARE was completed. Personnel directly involved with the procedure wore the appropriate PPE (Personal Protective Equipment). Patient/Surrogate Stated/Verified: PATIENT VERIFIED(optional for EMERGENT procedures): Patient name, Date of , Relevant allergies, and The intended procedure Time Out Communication: Intended patient and procedure match the source documents. Consent documented and matches the intended procedure. Sign Out: SIGN OUT (optional for EMERGENT procedures): No specimen collected. Deshawn Riojas MD IUI IUI Date: 11/28/23 Partner's Name: Brenton Rivas Partner's : 08/07/1993 Partner's Partner's Ethnicity/Race: NOT or Patient's LMP: 11/12/23 Cycle Day: 13 Pre-Procedure Diagnosis: Infertility Post-Procedure Diagnosis: Infertility Cycle Meds: Letrozole 5 mg Luteal Phase Progesterone: Prometrium Frequency: Once a day Starting On: 11/30/23 Trigger: Ovidrel Catheter Type: Curve catheter Sperm Information: Source of Sperm: Partner Ejaculated: Yes TMC (total motile count of sperm after wash): 44 Million Cycle reviewed, all questions answered. Pt instructed to take a test in 17 days if no menses and call with results. SIGNATURE: Deshawn Riojas MD PATIENT NAME: Lissa Rivas DATE: November 28, 2023 TIME: 10:52 AM [facility] 11-28-2023 Procedure note WHI GAYATHRI IUI PROCEDURE NOTE Date: 11/28/2023 Primary Proceduralist: Deshawn Riojas MD, Sandra Cruz MD Consents and Labels Consent Signed: Informed Consent obtained and on the chart Labels Verified With Patient: Yes Indications: Lissa Rivas, is a 28 year old female here today for intrauterine insemination. IUI # . Cycle Day: 13 Last menstrual period: 11/12/2023 [place] Protocol: UNIVERSAL PROTOCOL / SAFETY CHECKLIST Procedure to be Performed: IUI Sign In: A Moment of CARE was completed. Personnel directly involved with the procedure wore the appropriate PPE (Personal Protective Equipment). Patient/Surrogate Stated/Verified: PATIENT VERIFIED(optional for EMERGENT procedures): Patient name, Date of , Relevant allergies, and The intended procedure Time Out Communication: Intended patient and procedure match the source documents. Consent documented and matches the intended procedure. Sign Out: SIGN OUT (optional for EMERGENT procedures): No specimen collected. Deshawn Riojas MD IUI IUI Date: 11/28/23 Partner's Name: Brenton Rivas Partner's : 08/07/1993 Partner's Partner's Ethnicity/Race: NOT or Patient's LMP: 11/12/23 Cycle Day: 13 Pre-Procedure Diagnosis: Infertility Post-Procedure Diagnosis: Infertility Cycle Meds: Letrozole 5 mg Luteal Phase Progesterone: Prometrium Frequency: Once a day Starting On: 11/30/23 Trigger: Ovidrel Catheter Type: Curve catheter Sperm Information: Source of Sperm: Partner Ejaculated: Yes TMC (total motile count of sperm after wash): 44 Million Cycle reviewed, all questions answered. Pt instructed to take a test in 17 days if no menses and call with results. SIGNATURE: Deshawn Riojas MD PATIENT NAME: Lissa Rivas DATE: November 28, 2023 TIME: 10:52 AM [facility] 11-28-2023 Procedure note WHI GAYATHRI IUI PROCEDURE NOTE Date: 11/28/2023 Primary Proceduralist: Deshawn Riojas MD, Sandra Cruz MD Consents and Labels Consent Signed: Informed Consent obtained and on the chart Labels Verified With Patient: Yes Indications: Lissa Rivas, is a 28 year old female here today for intrauterine insemination. IUI # . Cycle Day: 13 Last menstrual period: 11/12/2023 [place] Protocol: UNIVERSAL PROTOCOL / SAFETY CHECKLIST Procedure to be Performed: IUI Sign In: A Moment of CARE was completed. Personnel directly involved with the procedure wore the appropriate PPE (Personal Protective Equipment). Patient/Surrogate Stated/Verified: PATIENT VERIFIED(optional for EMERGENT procedures): Patient name, Date of , Relevant allergies, and The intended procedure Time Out Communication: Intended patient and procedure match the source documents. Consent documented and matches the intended procedure. Sign Out: SIGN OUT (optional for EMERGENT procedures): No specimen collected. Deshawn Riojas MD IUI IUI Date: 11/28/23 Partner's Name: Brenton Rivas Partner's : 08/07/1993 Partner's Partner's Ethnicity/Race: NOT or Patient's LMP: 11/12/23 Cycle Day: 13 Pre-Procedure Diagnosis: Infertility Post-Procedure Diagnosis: Infertility Cycle Meds: Letrozole 5 mg Luteal Phase Progesterone: Prometrium Frequency: Once a day Starting On: 11/30/23 Trigger: Ovidrel Catheter Type: Curve catheter Sperm Information: Source of Sperm: Partner Ejaculated: Yes TMC (total motile count of sperm after wash): 44 Million Cycle reviewed, all questions answered. Pt instructed to take a test in 17 days if no menses and call with results. SIGNATURE: Deshawn Riojas MD PATIENT NAME: Lissa Rivas DATE: November 28, 2023 TIME: 10:52 AM documented in this encounter [facility] 11-28-2023 Note HNO ID: [id number] Author: EVANGELINA PAINTER, ? Service: ? Author Type: Parts Lister Type: Progress Notes Filed: 11/28/2023 10:54 Note Text: IUI specimen released to provider Evangelina Painter November 28, 2023 10:48 AM [facility] 11-22-2023 Note HNO ID: [id number] Author: ORTEGA MORRISSEY APRN.JORDAN Service: ? Author Type: Nurse Practitioner Type: Progress Notes Filed: 11/22/2023 15:00 Note Text: REPRODUCTIVE ENDOCRINOLOGY AND INFERTILITY VIRTUAL VISIT PROGRESS NOTE SERVICE DATE: 11/22/2023 SERVICE TIME: 2:33 PM NAME: Lissa Rivas VIRTUAL VISIT PROGRESS NOTE This is a virtual visit. It required patient-provider interaction for the medical decision making as documented below. Patient name and birthday verified: Yes Location of patient: [place] Persons Present: patient I have communicated my name and active licensure. The patient's identity and physical location were verified at the time of this visit. Either the patient or their legal direct marketing representative has been informed of the risks and benefits of -- and alternatives to -- treatment through a remote evaluation and consents to proceed with the evaluation remotely. Reason for visit: Follow up on side effects HPI Lissa took ovidrel 10/23, was unable to sleep that night or the following day 10/24 felt like her hearing was muffled/clogged 10/27 had excessive sneezing Once starting progesterone had intense mood swings/irritability [place] heart was beating slower than normal but hard at the same time This cycle so far has had a mild headache and back pain with letrozole. Supposed to take ovidrel tonight for IUI to follow but is feeling apprehensive about taking ovidrel with all the previous possible side effects. Diagnoses and all orders for this visit: Procreation management investigation and testing Next steps: - Understands symptoms may not be related to the medication and could have been an isolated event - Discussed options of using OPK instead of trigger, since she is close to ovulation, there is the risk this cycle could be missed. - Can also choose to trigger and continue with current plan Plan: - Will likely NOT take trigger and use OPK for monitoring - Call office with [facility] OPK and schedule IUI accordingly - If continues with trigger, will schedule IUI as instructed Ortega Morrissey APRN.VENEER JOINTER HELPER November 22, 2023 2:33 PM I spent a total of 20 minutes on the date of the service which included preparing to see the patient, [id number] patient care, completing clinical documentation, obtaining and/or reviewing separately obtained history, performing a medically appropriate examination, and counseling and educating the patient/family/caregiver. To patients reading this note: Please be advised the primary purpose of this note is for me to communicate with myself and other members of your medical team. Standard sentence structure is not always used. Medical terminology and medical abbreviations may be used. There may be grammatical and typographical errors missed in proofreading. [facility] 11-22-2023 History of Present illness Narrative Images from the original note were not included. REPRODUCTIVE ENDOCRINOLOGY AND INFERTILITY VIRTUAL VISIT PROGRESS NOTE SERVICE DATE: 11/22/2023 SERVICE TIME: 2:33 PM NAME: Lissa Rivas VIRTUAL VISIT PROGRESS NOTE This is a virtual visit. It required patient-provider interaction for the medical decision making as documented below. Patient name and birthday verified: Yes Location of patient: [place] Persons Present: patient I have communicated my name and active licensure. The patient's identity and physical location were verified at the time of this visit. Either the patient or their legal direct marketing representative has been informed of the risks and benefits of -- and alternatives to -- treatment through a remote evaluation and consents to proceed with the evaluation remotely. Reason for visit: Follow up on side effects HPI Lissa took ovidrel 10/23, was unable to sleep that night or the following day 10/24 felt like her hearing was muffled/clogged 10/27 had excessive sneezing Once starting progesterone had intense mood swings/irritability [place] heart was beating slower than normal but hard at the same time This cycle so far has had a mild headache and back pain with letrozole. Supposed to take ovidrel tonight for IUI to follow but is feeling apprehensive about taking ovidrel with all the previous possible side effects. Diagnoses and all orders for this visit: Procreation management investigation and testing Next steps: - Understands symptoms may not be related to the medication and could have been an isolated event - Discussed options of using OPK instead of trigger, since she is close to ovulation, there is the risk this cycle could be missed. - Can also choose to trigger and continue with current plan Plan: - Will likely NOT take trigger and use OPK for monitoring - Call office with [facility] and schedule IUI accordingly - If continues with trigger, will schedule IUI as instructed Ortega Morrissey APRN.CNP November 22, 2023 2:33 PM I spent a total of 20 minutes on the date of the service which included preparing to see the patient, [id number] patient care, completing clinical documentation, obtaining and/or reviewing separately obtained history, performing a medically appropriate examination, and counseling and educating the patient/family/caregiver. To patients reading this note: Please be advised the primary purpose of this note is for me to communicate with myself and other members of your medical team. Standard sentence structure is not always used. Medical terminology and medical abbreviations may be used. There may be grammatical and typographical errors missed in proofreading. documented in this encounter [facility] 11-22-2023 Note HNO ID: [id number] Author: ERMA DONIS RN Service: ? Author Type: Registered Nurse Type: Progress Notes Filed: 11/22/2023 15:44 Note Text: Lissa Rivas is here today for a midcycle scan. Lead follicle: 21mm vs CL Erma Donis RN November 22, 2023 8:44 AM Message sent to Dr. Howard to see if patient needs labs based on scan. Erma Donis RN November 22, 2023 8:09 AM Labs ordered and called patient. She will drive back to [place] now to get done. Erma Donis RN November 22, 2023 8:45 AM 11/22/2023 11 trigger 25+<10mm 21.2, 25+<10mm 5.6mm tri p4=0.3 lh=5.1 JR 11/23/2023 12 11/24/2023 13 IUI RN called patient, name and verified. Plan given for midcycle per physician, see flowsheet for details. MyChart message sent. Medications reviewed and verified, instructions given. Patient denies any questions or concerns. Erma Donis RN November 22, 2023 12:53 PM [facility] 11-22-2023 History of Present illness Narrative Lissa Rivas is here today for a midcycle scan. Lead follicle: 21mm vs CL Erma Donis RN November 22, 2023 8:44 AM Message sent to Dr. Howard to see if patient needs labs based on scan. Erma Donis RN November 22, 2023 8:09 AM Labs ordered and called patient. She will drive back to [place] now to get done. Erma Donis RN November 22, 2023 8:45 AM 11/22/2023 11 trigger 25+<10mm 21.2, 25+<10mm 5.6mm tri p4=0.3 lh=5.1 11/23/2023 12 11/24/2023 13 IUI RN called patient, name and verified. Plan given for midcycle per physician, see flowsheet for details. MyChart message sent. Medications reviewed and verified, instructions given. Patient denies any questions or concerns. Erma Donis RN November 22, 2023 12:53 PM documented in this encounter [facility] 11-15-2023 Telephone encounter Note Plan: Let 5mg/trigger/IUI #2 Ortega Morrissey APRN.CNP November 15, 2023 9:39 AM Please schedule the patient for the following- Location: [place] Provider: Nurse Visit type: Follicular scan Reason for visit/appointment notes: Follicular scan Date: 11/21 Time (requested): 0715 If slot is full, please schedule the closest open slot. Call to patient needed: no [facility] 11-15-2023 Miscellaneous Notes Plan: Let 5mg/trigger/IUI #2 Ortega Morrissey APRN.CNP November 15, 2023 9:39 AM Please schedule the patient for the following- Location: [place] Provider: Nurse Visit type: Follicular scan Reason for visit/appointment notes: Follicular scan Date: 11/21 Time (requested): 0715 If slot is full, please schedule the closest open slot. Call to patient needed: no Patient is planning IUI. FYI: [employer]. Please see the checklist Madeleine Orta PA-C November 12, 2023 6:07 PM Pt had iui 10/25 , pt had negative preg 11/08 or 11/09 , pt started cycle 11/11 documented in this encounter [facility] 11-12-2023 Telephone encounter Note Patient is planning IUI. FYI: DEXTER Mg. Please see the checklist Madeleine Orta PA-C November 12, 2023 6:07 PM [facility] Work Phone: 11-12-2023 Telephone encounter Note Pt had iui 10/25 , pt had negative preg 11/08 or 11/09 , pt started cycle 11/11 [facility] 10-26-2023 Telephone encounter Note This patient gave consent to this Medical Advice Message and is aware that it may result in a bill to their insurance, as well as the possibility of receiving a bill for a copay and/or deductible. They are an established patient, but are not seeking information exclusively about a problem treated during an in person or video visit in the last seven days. I did not recommend an in person or video visit within seven days of my reply. See the Glov[employer] message reply for my assessment and plan. I spent a total of 5 minutes reviewing the patient's prior medical records and current request for medical advice, prescribing medications or ordering tests (if applicable), replying to the patient, and documenting the encounter. [facility] 10-26-2023 Miscellaneous Notes This patient gave consent to this Medical Advice Message and is aware that it may result in a bill to their insurance, as well as the possibility of receiving a bill for a copay and/or deductible. They are an established patient, but are not seeking information exclusively about a problem treated during an in person or video visit in the last seven days. I did not recommend an in person or video visit within seven days of my reply. See the [employer] message reply for my assessment and plan. I spent a total of 5 minutes reviewing the patient's prior medical records and current request for medical advice, prescribing medications or ordering tests (if applicable), replying to the patient, and documenting the encounter. documented in this encounter [facility] 10-26-2023 Note HNO ID: [id number] Author: ORTEGA MORRISSEY APRN.CNP Service: ? Author Type: Nurse Practitioner Type: Procedures Filed: 10/26/2023 11:37 Note Text: WHI GAYATHRI IUI PROCEDURE NOTE Date: 10/26/2023 Primary Proceduralist: Ortega Morrissey APRN.CNP Consents and Labels Consent Signed: Informed Consent obtained and on the chart Labels Verified With Patient: Yes Indications: Lissa Rivas, is a 28 year old female here today for intrauterine insemination. IUI # Series 1 Cycle 1. Cycle Day: 15 Last menstrual period: 10/12/2023 [place] Protocol: UNIVERSAL PROTOCOL / SAFETY CHECKLIST Procedure to be Performed: IUI Sign In: A Moment of CARE was completed. Personnel directly involved with the procedure wore the appropriate PPE (Personal Protective Equipment). Patient/Surrogate Stated/Verified: PATIENT VERIFIED(optional for EMERGENT procedures): Patient name, Date of , Relevant allergies, and The intended procedure Time Out Communication: Intended patient and procedure match the source documents. Consent documented and matches the intended procedure. Sign Out: SIGN OUT (optional for EMERGENT procedures): No specimen collected. All instruments, equipment, possible retained foreign bodies accounted for. Post-procedure follow-up management communicated and Plan of Care Visit completed when applicable. Ortega Morrissey APRN.CNP IUI IUI Date: 10/26/23 Partner's Name: Brenton Rivas IUI Time: 11:25 AM EDT Partner's : 08/07/1993 IUI #: Series 1 Cycle 1 Partner's Partner's Ethnicity/Race: NOT or Patient's LMP: 10/12/23 Cycle Day: 15 Pre-Procedure Diagnosis: Infertility Post-Procedure Diagnosis: Infertility Cycle Meds: Letrozole 5 mg Luteal Phase Progesterone: N/A Trigger: Ovidrel (Comment: 10/24/23) Catheter Type: Curve catheter Tenaculum: No Catheter passed: Easy Complications: None Sperm Information: Source of Sperm: Partner Ejaculated: Yes Fresh/Frozen: Fresh TMC (total motile count of sperm after wash): 146.9 million Cycle reviewed, all questions answered. Pt instructed to take a test in 17 days if no menses and call with results. SIGNATURE: Ortega Morrissey APRN.CNP PATIENT NAME: Lissa Rivas DATE: October 26, 2023 TIME: 11:36 AM [facility] 10-26-2023 Procedure note WHI GAYATHRI IUI PROCEDURE NOTE Date: 10/26/2023 Primary Proceduralist: Ortega Morrissey APRN.CNP Consents and Labels Consent Signed: Informed Consent obtained and on the chart Labels Verified With Patient: Yes Indications: Lissa Rivas, is a 28 year old female here today for intrauterine insemination. IUI # Series 1 Cycle 1. Cycle Day: 15 Last menstrual period: 10/12/2023 [place] Protocol: UNIVERSAL PROTOCOL / SAFETY CHECKLIST Procedure to be Performed: IUI Sign In: A Moment of CARE was completed. Personnel directly involved with the procedure wore the appropriate PPE (Personal Protective Equipment). Patient/Surrogate Stated/Verified: PATIENT VERIFIED(optional for EMERGENT procedures): Patient name, Date of , Relevant allergies, and The intended procedure Time Out Communication: Intended patient and procedure match the source documents. Consent documented and matches the intended procedure. Sign Out: SIGN OUT (optional for EMERGENT procedures): No specimen collected. All instruments, equipment, possible retained foreign bodies accounted for. Post-procedure follow-up management communicated and Plan of Care Visit completed when applicable. Ortega Morrissey APRN.CNP IUI IUI Date: 10/26/23 Partner's Name: Brenton Rivas IUI Time: 11:25 AM EDT Partner's : 08/07/1993 IUI #: Series 1 Cycle 1 Partner's Partner's Ethnicity/Race: NOT or Patient's LMP: 10/12/23 Cycle Day: 15 Pre-Procedure Diagnosis: Infertility Post-Procedure Diagnosis: Infertility Cycle Meds: Letrozole 5 mg Luteal Phase Progesterone: N/A Trigger: Ovidrel (Comment: 10/24/23) Catheter Type: Curve catheter Tenaculum: No Catheter passed: Easy Complications: None Sperm Information: Source of Sperm: Partner Ejaculated: Yes Fresh/Frozen: Fresh TMC (total motile count of sperm after wash): 146.9 million Cycle reviewed, all questions answered. Pt instructed to take a test in 17 days if no menses and call with results. SIGNATURE: Ortega Morrissey APRN.CNP PATIENT NAME: Lissa Rivas DATE: October 26, 2023 TIME: 11:36 AM [facility] 10-26-2023 Procedure note WHI GAYATHRI IUI PROCEDURE NOTE Date: 10/26/2023 Primary Proceduralist: Ortega Morrissey APRN.CNP Consents and Labels Consent Signed: Informed Consent obtained and on the chart Labels Verified With Patient: Yes Indications: Lissa Rivas, is a 28 year old female here today for intrauterine insemination. IUI # Series 1 Cycle 1. Cycle Day: 15 Last menstrual period: 10/12/2023 [place] Protocol: UNIVERSAL PROTOCOL / SAFETY CHECKLIST Procedure to be Performed: IUI Sign In: A Moment of CARE was completed. Personnel directly involved with the procedure wore the appropriate PPE (Personal Protective Equipment). Patient/Surrogate Stated/Verified: PATIENT VERIFIED(optional for EMERGENT procedures): Patient name, Date of , Relevant allergies, and The intended procedure Time Out Communication: Intended patient and procedure match the source documents. Consent documented and matches the intended procedure. Sign Out: SIGN OUT (optional for EMERGENT procedures): No specimen collected. All instruments, equipment, possible retained foreign bodies accounted for. Post-procedure follow-up management communicated and Plan of Care Visit completed when applicable. Ortega Morrissey APRN.CNP IUI IUI Date: 10/26/23 Partner's Name: Brenton Rivas IUI Time: 11:25 AM EDT Partner's : [birth year]/07/1993 IUI #: Series 1 Cycle 1 Partner's Partner's Ethnicity/Race: NOT or Patient's LMP: 10/12/23 Cycle Day: 15 Pre-Procedure Diagnosis: Infertility Post-Procedure Diagnosis: Infertility Cycle Meds: Letrozole 5 mg Luteal Phase Progesterone: N/A Trigger: Ovidrel (Comment: 10/24/23) Catheter Type: Curve catheter Tenaculum: No Catheter passed: Easy Complications: None Sperm Information: Source of Sperm: Partner Ejaculated: Yes Fresh/Frozen: Fresh TMC (total motile count of sperm after wash): 146.9 million Cycle reviewed, all questions answered. Pt instructed to take a test in 17 days if no menses and call with results. SIGNATURE: Ortega Morrissey APRN.CNP PATIENT NAME: Lissa Rivas DATE: October 26, 2023 TIME: 11:36 AM documented in this encounter [facility] 10-22-2023 Note HNO ID: [id number] Author: AYANNA TREVIZO MD Service: ? Author Type: Physician Type: Progress Notes Filed: 10/22/2023 23:02 Note Text: GAYATHRI Attending Physician Note: Ultrasound and lab results reviewed. Based on review of ultrasound and lab results, medication dose and follow up date plans provided. See cycle flowsheet for dosing details. Ayanna Trevizo MD, FLACO [facility] 10-22-2023 Note HNO ID: [id number] Author: ERMA DONIS RN Service: ? Author Type: Registered Nurse Type: Progress Notes Filed: 10/22/2023 13:41 Note Text: Lissa Rivas is here today for a midcycle scan. Lead follicle: 14 Erma Donis RN October 22, 2023 7:25 AM RN called patient, name and verified. Plan given for midcycle per physician, see flowsheet for details. MyChart message sent. Medications reviewed and verified, instructions given. Patient denies any questions or concerns. Erma Donis RN October 22, 2023 1:38 PM [facility] 10-22-2023 History of Present illness Narrative Lissa Rivas is here today for a midcycle scan. Lead follicle: 14 Erma Donis RN October 22, 2023 7:25 AM RN called patient, name and verified. Plan given for midcycle per physician, see flowsheet for details. MyChart message sent. Medications reviewed and verified, instructions given. Patient denies any questions or concerns. Erma Donis RN October 22, 2023 1:38 PM documented in this encounter [facility] 10-20-2023 Telephone encounter Note patient instructed to order trigger now so that she has it by Wednesday Ani Stovall APRN.CNP October 20, 2023 3:10 PM [facility] 10-20-2023 Miscellaneous Notes patient instructed to order trigger now so that she has it by Wednesday Ani Stovall APRN.CNP October 20, 2023 3:10 PM Pts pharmacy called and would like to know when she needs to order trigger shot documented in this encounter [facility] 10-20-2023 Telephone encounter Note Pts pharmacy called and would like to know when she needs to order trigger shot [facility] 10-12-2023 Telephone encounter Note The following approved medication requests have been transmitted electronically. Requested Prescriptions Signed Prescriptions Disp Refills Choriogonadotropin Pam,HumRec (OVIDREL) 250 mcg/0.5 mL syrg 0.5 mL 1 Sig: Inject 250 mcg subcutaneously one time only for 1 dose. Authorizing Provider: ORTEGA MORRISSEY APRN.CNP October 12, 2023 4:10 PM [facility] 10-12-2023 Miscellaneous Notes The following approved medication requests have been transmitted electronically. Requested Prescriptions Signed Prescriptions Disp Refills Choriogonadotropin Pam,HumRec (OVIDREL) 250 mcg/0.5 mL syrg 0.5 mL 1 Sig: Inject 250 mcg subcutaneously one time only for 1 dose. Authorizing Provider: ORTEGA MORRISSEY APRN.CNP October 12, 2023 4:10 PM Called the patient she verified her name and date of period started today has letrozole needs trigger shot Randee Myers RN October 12, 2023 2:30 PM Flowsheet done Please schedule the patient for the following- Location: [place] Provider: nurse Visit type: mid cycle Reason for visit/appointment notes: mid cycle non ivf Date: 10-22-23 Time (requested): 0700 If slot is full, please schedule the closest open slot. Call to patient needed: no Patient states she also needs information regarding trigger shot. Please call patient. documented in this encounter [facility] 10-12-2023 Telephone encounter Note Called the patient she verified her name and date of period started today has letrozole needs trigger shot Randee Myers RN October 12, 2023 2:30 PM Flowsheet done Please schedule the patient for the following- Location: [place] Provider: nurse Visit type: mid cycle Reason for visit/appointment notes: mid cycle non ivf Date: 10-22-23 Time (requested): 0700 If slot is full, please schedule the closest open slot. Call to patient needed: no [facility] 10-12-2023 Telephone encounter Note Patient states she also needs information regarding trigger shot. Please call patient. [facility] Work Phone: 09-10-2023 Note HNO ID: [id number] Author: ORTEGA MORRISSEY APRN.CNM Service: ? Author Type: Nurse Practitioner Type: Progress Notes Filed: 09/10/2023 15:39 Note Text: [facility] ENDOCRINOLOGY AND INFERTILITY IUI TEACH SERVICE DATE: 09/10/2023 SERVICE TIME: 2:56 PM NAME: Lissa Rivas VIRTUAL VISIT PROGRESS NOTE This is a virtual visit. It required patient-provider interaction for the medical decision making as documented below. Patient name and birthday verified: Yes Location of patient: [place] Persons Present: patient I have communicated my name and active licensure. The patient's identity and physical location were verified at the time of this visit. Either the patient or their legal direct marketing representative has been informed of the risks and benefits of -- and alternatives to -- treatment through a remote evaluation and consents to proceed with the evaluation remotely. Reason for visit: IUI Teach [facility] Primary GAYATHRI Physician: Dr. Khan IUI Treatment Plan: Letrozole 5mg/trigger/IUI Partner's name/MRN: Brenton [id number] LMP: 07/23 IUI Checklist: Consultation: Done Registration of patient and partner: Done Financial Clearance: In process IUI Patient Education: ASRM IUI Patient Fact Sheet IUI Consent Form: sent today via Swoop Orders: filed today Medications ordered today Screening of patient: Rubella Titer (IgG) (for each /delivery) Varicella (if history of immune result or prior infection does not need to be repeated) ABO/RH (Blood Type), plus Antibody Screen (once) for each Annual gynecology exam within a year and up-to-date Pap smear Mammogram up-to-date (if age 40 or above) Infectious disease screening (for each ongoing ) HIV 1/2 Hepatitis B Surface Antigen Hepatitis C Antibody T. Pallidum antibody or RPR (Syphilis) Cervical culture or urine for GC/CT Genetic carrier screening (GCS) or signed waiver declining screening Hemoglobin A1c Pelvic ultrasound if not performed within the past year Tubal patency assessment unless waived by primary GAYATHRI clinician (hysterosalpingogram (HSG), or sonogram HSG) Screening of partner SA or previous IUI wash results (unless waived by physician) Genetic Carrier Screen (GCS) or signed waiver declining screening Results Patient Results Latest Ref Rng 01/04/2023 ABO A Rh(D) Negative Antibody Screen Negative Type+Scr Expiration 01/07/2023 23:59 Historical Ab Scr Status NEGATIVE Hemoglobin A1C 4.3 - 5.6 % 5.6 Estimated Average Glucose mg/dL 114 Rubella IgG, Qual Positive Negative ! Varicella Zoster IgG, Qual Positive Positive Myriad: negative for all conditions tested Last pap:11/17/21 (normal), well woman 10/2022 HSG: Normal 07/2023 Partner Results Brenton Latest Ref Rng 08/10/2023 Date Of Analysis 08/10/23 Semen Volume >=1.50 mL 2.80 Semen pH >=7.2 7.6 Color, Semen Roque Opalescent Semen Viscosity Normal Concentration >=15.00 M/mL 211.50 Total Count Sperm M 592.20 % Motile Sperm (%NH + %SUGAR COATING HAND) >=40 % 64 Forward Progression 4 = Rapid unidirectional Total Motile Sperm M 379.01 Sperm Diff, Susan >=4 % 9 Undiff Rnd Cell W Rout Semen Anly <1.00 M/mL 0.75 Abstinence Time Days 2.0 Collection Time 1104 Receipt Time 1105 Semen Age 0 - 60 Minutes 24 Semen Comment 1 Lissa Rivas Semen Comment 2 Analysis performed using Makler Chamber. Pending Items: - Financial Clearance Pending items for patient: HIV, Syphilis, Hepatitis B, Hepatitis C, Chlamydia/Gonorrhea Pending items for partner: None Diagnoses and all orders for this visit: Screen for sexually transmitted diseases - GONORRHEA/CHLAMYDIA NAAT; Future - HEPATITIS B SURFACE ANTIGEN; Future - HEPATITIS C ANTIBODY IA WITH CONFIRMATION; Future - HIV 1/2 COMBO WITH REFLEX TO DIFFERENTIATION; Future - SYPHILIS TOTAL W/REFLEX; Future Secondary amenorrhea - PROGESTERONE; Future - HCG QUANTITATIVE; Future Female infertility - FOLLICULAR US WHI; Future Next steps: -Once results are back, and checklist competed, will set up monitoring and order trigger shot with period start - Can begin provera if progesterone and HCG low/neg Ortega Morrissey APRN.JASVIR September 10, 2023 2:56 PM I spent a total of 40 minutes on the date of the service which included preparing to see the patient, [id number] patient care, completing clinical documentation, obtaining and/or reviewing separately obtained history, performing a medically appropriate examination, ordering medications, tests, or procedures, and care coordination (not separately reported). To patients reading this note: Please be advised the primary purpose of this note is for me to communicate with myself and other members of your medical team. Standard sentence structure is not always used. Medical terminology and medical abbreviations may be used. There may be grammatical and (more content not included)... [facility] 09-10-2023 History of Present illness Narrative Images from the original note were not included. REPRODUCTIVE ENDOCRINOLOGY AND INFERTILITY IUI TEACH SERVICE DATE: 09/10/2023 SERVICE TIME: 2:56 PM NAME: Lissa Rivas VIRTUAL VISIT PROGRESS NOTE This is a virtual visit. It required patient-provider interaction for the medical decision making as documented below. Patient name and birthday verified: Yes Location of patient: [place] Persons Present: patient I have communicated my name and active licensure. The patient's identity and physical location were verified at the time of this visit. Either the patient or their legal direct marketing representative has been informed of the risks and benefits of -- and alternatives to -- treatment through a remote evaluation and consents to proceed with the evaluation remotely. Reason for visit: IUI Teach [facility] Primary GAYATHRI Physician: Dr. Khan IUI Treatment Plan: Letrozole 5mg/trigger/IUI Partner's name/MRN: Brenton [id number] LMP: 07/23 IUI Checklist: Consultation: Done Registration of patient and partner: Done Financial Clearance: In process IUI Patient Education: ASRM IUI Patient Fact Sheet IUI Consent Form: sent today via Swoop Orders: filed today Medications ordered today Screening of patient: Rubella Titer (IgG) (for each /delivery) Varicella (if history of immune result or prior infection does not need to be repeated) ABO/RH (Blood Type), plus Antibody Screen (once) for each Annual gynecology exam within a year and up-to-date Pap smear Mammogram up-to-date (if age 40 or above) Infectious disease screening (for each ongoing ) HIV 1/2 Hepatitis B Surface Antigen Hepatitis C Antibody T. Pallidum antibody or RPR (Syphilis) Cervical culture or urine for GC/CT Genetic carrier screening (GCS) or signed waiver declining screening Hemoglobin A1c Pelvic ultrasound if not performed within the past year Tubal patency assessment unless waived by primary GAYATHRI clinician (hysterosalpingogram (HSG), or sonogram HSG) Screening of partner SA or previous IUI wash results (unless waived by physician) Genetic Carrier Screen (GCS) or signed waiver declining screening Results Patient Results Latest Ref Rng 01/04/2023 ABO A Rh(D) Negative Antibody Screen Negative Type+Scr Expiration 01/07/2023 23:59 Historical Ab Scr Status NEGATIVE Hemoglobin A1C 4.3 - 5.6 % 5.6 Estimated Average Glucose mg/dL 114 Rubella IgG, Qual Positive Negative ! Varicella Zoster IgG, Qual Positive Positive Myriad: negative for all conditions tested Last pap:11/17/21 (normal), well woman 10/2022 HSG: Normal 07/2023 Partner Results Brenton Latest Ref Rng 08/10/2023 Date Of Analysis 08/10/23 Semen Volume >=1.50 mL 2.80 Semen pH >=7.2 7.6 Color, Semen Roque Opalescent Semen Viscosity Normal Concentration >=15.00 M/mL 211.50 Total Count Sperm M 592.20 % Motile Sperm (%NH + %SUGAR COATING HAND) >=40 % 64 Forward Progression 4 = Rapid unidirectional Total Motile Sperm M 379.01 Sperm Diff, Susan >=4 % 9 Undiff Rnd Cell W Rout Semen Anly <1.00 M/mL 0.75 Abstinence Time Days 2.0 Collection Time 1104 Receipt Time 1105 Semen Age 0 - 60 Minutes 24 Semen Comment 1 Lissa Iannsusannah Semen Comment 2 Analysis performed using Makler Chamber. Pending Items: - Financial Clearance Pending items for patient: HIV, Syphilis, Hepatitis B, Hepatitis C, Chlamydia/Gonorrhea Pending items for partner: None Diagnoses and all orders for this visit: Screen for sexually transmitted diseases - GONORRHEA/CHLAMYDIA NAAT; Future - HEPATITIS B SURFACE ANTIGEN; Future - HEPATITIS C ANTIBODY IA WITH CONFIRMATION; Future - HIV 1/2 COMBO WITH REFLEX TO DIFFERENTIATION; Future - SYPHILIS TOTAL W/REFLEX; Future Secondary amenorrhea - PROGESTERONE; Future - HCG QUANTITATIVE; Future Female infertility - FOLLICULAR US WHI; Future Next steps: -Once results are back, and checklist competed, will set up monitoring and order trigger shot with period start - Can begin provera if progesterone and HCG low/neg Ortega Morrissey APRN.CNM September 10, 2023 2:56 PM I spent a total of 40 minutes on the date of the service which included preparing to see the patient, [id number] patient care, completing clinical documentation, obtaining and/or reviewing separately obtained history, performing a medically appropriate examination, ordering medications, tests, or procedures, and care coordination (not separately reported). To patients reading this note: Please be advised the primary purpose of this note is for me to communicate with myself and other members of your medical team. Standard sentence structure is not always used. Medical terminology and medical abbreviations may be used. There may be grammatical and typographical errors missed in proofreading. documented in this encounter [facility] 09-09-2023 Telephone encounter Note The following approved medication requests have been transmitted electronically. Requested Prescriptions Signed Prescriptions Disp Refills medroxyPROGESTERone (PROVERA) 10 mg tablet 10 tablet 0 Sig: Take 1 tablet by mouth once daily. Authorizing Provider: ORTEGA MORRISSEY APRN.CNM September 09, 2023 9:07 AM [facility] 09-09-2023 Miscellaneous Notes The following approved medication requests have been transmitted electronically. Requested Prescriptions Signed Prescriptions Disp Refills medroxyPROGESTERone (PROVERA) 10 mg tablet 10 tablet 0 Sig: Take 1 tablet by mouth once daily. Authorizing Provider: ORTEGA MORRISSEY APRN.CNM September 09, 2023 9:07 AM Called the patient she verified her name and date of last period was July 23 took no fertility meds that cycle had labs done they are neg. I advised we will send provera to get her period started I advised to call with her period so we can set up a monitored cycle I advised she also needs nurse teach for IUI Randee Myers RN September 09, 2023 8:24 AM Latest Ref Rng 09/02/2023 Progesterone See comment ng/mL 0.2 hCG Quantitative, Blood <5.0 mIU/mL <0.6 Iui Patient called in regards to her lab results documented in this encounter [facility] 09-09-2023 Telephone encounter Note Called the patient she verified her name and date of last period was July 23 took no fertility meds that cycle had labs done they are neg. I advised we will send provera to get her period started I advised to call with her period so we can set up a monitored cycle I advised she also needs nurse teach for IUI Randee Myers RN September 09, 2023 8:24 AM Latest Ref Rng 09/02/2023 Progesterone See comment ng/mL 0.2 hCG Quantitative, Blood <5.0 mIU/mL <0.6 [facility] 09-08-2023 Telephone encounter Note Iui Patient called in regards to her lab results [facility] 09-02-2023 Telephone encounter Note Returned patient call to number listed. Left VM for patient with plan to get a P4 & hCG level complete. Pt instructed to go to any [facility] site to complete and that once the labs result, someone will be in contact to discuss results. Patient instructed to call office with any further questions or concerns. Amparo Mcclellan RN September 02, 2023 1:11 PM [facility] 09-02-2023 Miscellaneous Notes Returned patient call to number listed. Left VM for patient with plan to get a P4 & hCG level complete. Pt instructed to go to any [facility] site to complete and that once the labs result, someone will be in contact to discuss results. Patient instructed to call office with any further questions or concerns. Amparo Mcclellan RN September 02, 2023 1:11 PM Returned patient call. Patient LMP was 07/24/23. Typical cycles are 38-42 days. Per patient had light spotting for 1.5 days (August 22 & part day August 23). Patient has tested for 2x, last week and this week, with negative result. Let patient know I would forwrad her chart to our APPs to review and that someone would be in touch with a plan. Patient appreciative and has no further questions at this time. Amparo Mcclellan RN September 02, 2023 11:41 AM Please follow up with patient. documented in this encounter [facility] 09-02-2023 Telephone encounter Note Returned patient call. Patient LMP was 07/24/23. Typical cycles are 38-42 days. Per patient had light spotting for 1.5 days (August 22 & part day August 23). Patient has tested for 2x, last week and this week, with negative result. Let patient know I would forwrad her chart to our APPs to review and that someone would be in touch with a plan. Patient appreciative and has no further questions at this time. Amparo Mcclellan RN September 02, 2023 11:41 AM [facility] 09-02-2023 Telephone encounter Note Please follow up with patient. [facility] Work Phone: 08-19-2023 Progress note Formatting of t his note is different from the original. [facility] Date: 08/19/2023 Consultation Requested By: self Lissa Rivas is a 28 year old female presenting with the following history: HISTORY OF PRESENT ILLNESS: Lissa Rivas is a 28 year old female with August 18, 2023: Follow up PCOS, anovulatory infertility. S/p 3 cycles of Letrozole, cycle 34-42 days. Normal HSG. Partner had SA - told it was normal. Saw cancer genetic team 03/2023. Previous encounter on 04/07/2023: Pt is here for follow up. 1. PCOS - not respond to letrozole 2.5 mg. Dosed increase to 5 mg recently and she will get the prog done again on CD 21. 2. Elevated LFT - work up are all negative. Her PCP will repeat her LFT again in a few months. 3. Rubella non-immune. Patient aware. She will get the vaccine at the local pharmacy. She aware that she should not TTC for 30 days after taking the injection. 4. She has an appointment with cancer genetic team soon. 5. 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 Initial consult note on 01/04/2023: TTC January 2022. Has not used ocp since teenager. Was seen med endo for PCOS and placed on metformin. She self discontinue metformin last year and period never return. Using condoms prior Hx of PCOS diagnosed in 2019 through ultrasound and c/o abnormal hair growth, cycles usually q 3 months but has not had a cycle since Dec 2021 Has been spotting for 40+ days Using elle to track cycles, tried OPK for a few months but never has gotten a positive Treated for Chlamydia at age 16 healthy, non-smoker; no established pregnancies. Irregular period, hirsutism, ultrasound showed PCO appearing ovaries. Obstetric History T0 L0 SAB0 IAB0 Ectopic0 Multiple0 Live Births0 Fertility Evaluations and Treatments: Eval Checklist Results Date Comments HSG Normal 07/29/2023 Hysteroscopy Laparoscopy OPK (Ovulation Predictor Kit) Ovarian [facility] AMH 10.91 High 01/04/2023 Saline Ultrasound Semen Analysis Normal 08/10/2023 Ultrasound Abnormal polycystic ovaries, otherwise normal 02/08/2023 Other (See comments) MENSTRUAL HISTORY: Menarche Age: 12 Length of Cycle: 34-42 days with Letrozole Irregular Days: 4-5 Menstrual Flow: Menstrual Symptoms: Patient's last menstrual period was 07/24/2023 (exact date). 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 Obesity due to excess calories PCOS (polycystic ovarian syndrome) Seasonal allergies PAST SURGICAL HISTORY Procedure Laterality Date EYE SURGERY HX 03/2020 [facility] FAMILY HISTORY Problem Relation Age of Onset Hypertension Mother Asthma Father Diabetes Father Heart disease Father Stroke Father Kidney Disease Father Arrhythmia Father Atrial fibrillation COPD Father Hypertension Father Hyperlipidemia Father Arrhythmia Half-sister Atrial fibrillation Breast Cancer Maternal Grandmother 40 - 49 Arthritis Paternal Grandmother Stroke Paternal Grandmother COPD Paternal Grandmother Arrhythmia Paternal Grandmother Atrial fibrillation Heart disease Paternal Grandmother Diabetes Paternal Grandmother Prostate Cancer Maternal Uncle 40 - 49 metastatic Lung Cancer Maternal Uncle 45 - 49 Breast Cancer Maternal great-grandmother Breast Cancer Maternal Aunt 45 GENETIC HISTORY: no OCCUPATION/EXERCISE: Occupation: [employer] / [employer] Exercise: daily walking Partner Information Partner's Name: Brenton Rivas Partner's : 08/07/1993 Partner's Partner's Ethnicity: NOT or Partner's Race: White Occupation: [employer] / [employer] Legally ?: Yes Years together: together in 2013 Do they have children together?: No Any other Previous Pregnancies?: No Smoking History: Never Use of alchol: social use Use of Drugs: none Medications: none Pertinent Medical Hx: none Pertinent Surgical Hx: EGD Pertinent Genetic Hx: none MEDICATIONS: Current Outpatient Medications on File Prior to Visit Medication Sig PNV no.95/ferrous fum/folic ac ( ORAL) Take 1 tablet by mouth once daily. metFORMIN ER (GLUCOPHAGE XR) 500 mg 24 hr tablet Take 3 tablets by mouth daily with breakfast. Start with 1 tablet daily and slowly increase the dose up to 3 tablets daily. (Patient taking differently: Take 1,000 mg by mouth daily with breakfast. Start with 1 tablet daily and slowly increase the dose up to 3 tablets daily.) medroxyPROGESTERone (PROVERA) 10 mg tablet Take 1 tablet by mouth once daily for 10 days. (Patient not taking: Reported on 08/18/2023) No current facility-administered medications on file prior to visit. ALLERGIES: Patient has no known allergies. [facility] PAP Results: Normal Date: 11/18/2022 HPV Results: Negative Date: 11/18/2022 STD Results: Yes Date: age 16 Comments: Treated for Chlamydia at age 16, HSV1 (presented genitally) Last Mammogram: n/a Blood Type: No results found for this basename: aborhd No results found for this basename: rubqnt,vzvg Assessment and Plan Patient indicated that her period still q 38-45 days despite on letrozole 5 mg. Will get day 21 prog done again this cycle. She somehow was told that she cannot get refills on higher dose of letrozole despite she only took it for 2 months. I apologize to the pt for this. Nevertheless, she only miss 1 cycle. If P4 normal, I discuss continue letrozole for 2-3 more months along or adding IUI now. She will let us know what she decides to do. Pt aware that she needs to meet with [facility] for IUI teach. [facility] IUI Treatment Plan: Patient summary: Tubal Patency Testing: HSG date: 2023 bilat tubal patency. Sperm Source:Partner Frozen Treatment Protocol: Letrozole dose 5 mg Monitoring Plan: Ultrasound monitoring CD 10-12 Ovidrel Trigger: Yes Supplemental Progesterone: Prometrium 200 mg per vagina daily Comments: None Kim Khan MD 08/19/2023 This visit was conducted as a virtual visit via zoom. I have communicated my name and active licensure. The patient's identity and physical location were verified at the time of this visit. Either the patient or their legal direct marketing representative has been informed of the risks and benefits of -- and alternatives to -- treatment through a remote evaluation and consents to proceed with the evaluation remotely. I spent a total of 30 minutes on the date of the service which included preparing to see the patient, [id number] patient care, completing clinical documentation, counseling and educating the patient/family/caregiver, ordering medications, tests, or procedures, communicating results to the patient/family/caregiver, and care coordination (not separately reported). Kim Khan MD [facility] 08-19-2023 Consult note Formatting of th is note is different from the original. [facility] Date: 08/19/2023 Consultation Requested By: self Lissa Rivas is a 28 year old female presenting with the following history: HISTORY OF PRESENT ILLNESS: Lissa Rivas is a 28 year old female with August 18, 2023: Follow up PCOS, anovulatory infertility. S/p 3 cycles of Letrozole, cycle 34-42 days. Normal HSG. Partner had SA - told it was normal. Saw cancer genetic team 03/2023. Previous encounter on 04/07/2023: Pt is here for follow up. 1. PCOS - not respond to letrozole 2.5 mg. Dosed increase to 5 mg recently and she will get the prog done again on CD 21. 2. Elevated LFT - work up are all negative. Her PCP will repeat her LFT again in a few months. 3. Rubella non-immune. Patient aware. She will get the vaccine at the local pharmacy. She aware that she should not TTC for 30 days after taking the injection. 4. She has an appointment with cancer genetic team soon. 5. 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 Initial consult note on 01/04/2023: TTC January 2022. Has not used ocp since teenager. Was seen [facility] for PCOS and placed on metformin. She self discontinue metformin last year and period never return. Using condoms prior Hx of PCOS diagnosed in 2019 through ultrasound and c/o abnormal hair growth, cycles usually q 3 months but has not had a cycle since Dec 2021 Has been spotting for 40+ days Using elle to track cycles, tried OPK for a few months but never has gotten a positive Treated for Chlamydia at age 16 healthy, non-smoker; no established pregnancies. Irregular period, hirsutism, ultrasound showed PCO appearing ovaries. Obstetric History T0 L0 SAB0 IAB0 Ectopic0 Multiple0 Live Births0 Fertility Evaluations and Treatments: Eval Checklist Results Date Comments HSG Normal 07/29/2023 Hysteroscopy Laparoscopy OPK (Ovulation Predictor Kit) Ovarian [facility] AMH 10.91 High 01/04/2023 Saline Ultrasound Semen Analysis Normal 08/10/2023 Ultrasound Abnormal polycystic ovaries, otherwise normal 02/08/2023 Other (See comments) MENSTRUAL HISTORY: Menarche Age: 12 Length of Cycle: 34-42 days with Letrozole Irregular Days: 4-5 Menstrual Flow: Menstrual Symptoms: Patient's last menstrual period was 07/24/2023 (exact date). 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 Obesity due to excess calories PCOS (polycystic ovarian syndrome) Seasonal allergies PAST SURGICAL HISTORY Procedure Laterality Date EYE SURGERY HX 03/2020 [facility] FAMILY HISTORY Problem Relation Age of Onset Hypertension Mother Asthma Father Diabetes Father Heart disease Father Stroke Father Kidney Disease Father Arrhythmia Father Atrial fibrillation COPD Father Hypertension Father Hyperlipidemia Father Arrhythmia Half-sister Atrial fibrillation Breast Cancer Maternal Grandmother 40 - 49 Arthritis Paternal Grandmother Stroke Paternal Grandmother COPD Paternal Grandmother Arrhythmia Paternal Grandmother Atrial fibrillation Heart disease Paternal Grandmother Diabetes Paternal Grandmother Prostate Cancer Maternal Uncle 40 - 49 metastatic Lung Cancer Maternal Uncle 45 - 49 Breast Cancer Maternal great-grandmother Breast Cancer Maternal Aunt 45 GENETIC HISTORY: no OCCUPATION/EXERCISE: Occupation: [employer] / [employer] Exercise: daily walking Partner Information Partner's Name: Brenton Rivas Partner's : 08/07/1993 Partner's Partner's Ethnicity: NOT or Partner's Race: White Occupation: [employer] / [employer] Legally ?: Yes Years together: together in 2013 Do they have children together?: No Any other Previous Pregnancies?: No Smoking History: Never Use of alchol: social use Use of Drugs: none Medications: none Pertinent Medical Hx: none Pertinent Surgical Hx: EGD Pertinent Genetic Hx: none MEDICATIONS: Current Outpatient Medications on File Prior to Visit Medication Sig PNV no.95/ferrous fum/folic ac ( ORAL) Take 1 tablet by mouth once daily. metFORMIN ER (GLUCOPHAGE XR) 500 mg 24 hr tablet Take 3 tablets by mouth daily with breakfast. Start with 1 tablet daily and slowly increase the dose up to 3 tablets daily. (Patient taking differently: Take 1,000 mg by mouth daily with breakfast. Start with 1 tablet daily and slowly increase the dose up to 3 tablets daily.) medroxyPROGESTERone (PROVERA) 10 mg tablet Take 1 tablet by mouth once daily for 10 days. (Patient not taking: Reported on 08/18/2023) No current facility-administered medications on file prior to visit. ALLERGIES: Patient has no known allergies. [facility] PAP Results: Normal Date: 11/18/2022 HPV Results: Negative Date: 11/18/2022 STD Results: Yes Date: age 16 Comments: Treated for Chlamydia at age 16, HSV1 (presented genitally) Last Mammogram: n/a Blood Type: No results found for this basename: aborhd No results found for this basename: rubqnt,vzvg Assessment and Plan Patient indicated that her period still q 38-45 days despite on letrozole 5 mg. Will get day 21 prog done again this cycle. She somehow was told that she cannot get refills on higher dose of letrozole despite she only took it for 2 months. I apologize to the pt for this. Nevertheless, she only miss 1 cycle. If P4 normal, I discuss continue letrozole for 2-3 more months along or adding IUI now. She will let us know what she decides to do. Pt aware that she needs to meet with [facility] for IUI teach. [facility] IUI Treatment Plan: Patient summary: Tubal Patency Testing: HSG date: 2023 bilat tubal patency. Sperm Source:Partner Frozen Treatment Protocol: Letrozole dose 5 mg Monitoring Plan: Ultrasound monitoring CD 10-12 Ovidrel Trigger: Yes Supplemental Progesterone: Prometrium 200 mg per vagina daily Comments: None Kim Khan MD 08/19/2023 This visit was conducted as a virtual visit via zoom. I have communicated my name and active licensure. The patient's identity and physical location were verified at the time of this visit. Either the patient or their legal direct marketing representative has been informed of the risks and benefits of -- and alternatives to -- treatment through a remote evaluation and consents to proceed with the evaluation remotely. I spent a total of 30 minutes on the date of the service which included preparing to see the patient, [id number] patient care, completing clinical documentation, counseling and educating the patient/family/caregiver, ordering medications, tests, or procedures, communicating results to the patient/family/caregiver, and care coordination (not separately reported). Kim Khan MD documented in this encounter [facility] 08-19-2023 Plan of care note Patient indicated that her period still q 38-45 days despite on letrozole 5 mg. Will get day 21 prog done again this cycle. She somehow was told that she cannot get refills on higher dose of letrozole despite she only took it for 2 months. I apologize to the pt for this. Nevertheless, she only miss 1 cycle. If P4 normal, I discuss continue letrozole for 2-3 more months along or adding IUI now. She will let us know what she decides to do. Pt aware that she needs to meet with [facility] for IUI teach. [facility] IUI Treatment Plan: Patient summary: Tubal Patency Testing: HSG date: 2023 bilat tubal patency. Sperm Source:Partner Frozen Treatment Protocol: Letrozole dose 5 mg Monitoring Plan: Ultrasound monitoring CD 10-12 Ovidrel Trigger: Yes Supplemental Progesterone: Prometrium 200 mg per vagina daily Comments: None Kim Khan MD 08/19/2023 [facility] 08-19-2023 Miscellaneous Notes Patient indicated that her period still q 38-45 days despite on letrozole 5 mg. Will get day 21 prog done again this cycle. She somehow was told that she cannot get refills on higher dose of letrozole despite she only took it for 2 months. I apologize to the pt for this. Nevertheless, she only miss 1 cycle. If P4 normal, I discuss continue letrozole for 2-3 more months along or adding IUI now. She will let us know what she decides to do. Pt aware that she needs to meet with [facility] for IUI teach. [facility] IUI Treatment Plan: Patient summary: Tubal Patency Testing: HSG date: 2023 bilat tubal patency. Sperm Source:Partner Frozen Treatment Protocol: Letrozole dose 5 mg Monitoring Plan: Ultrasound monitoring CD 10- Ovidrel Trigger: Yes Supplemental Progesterone: Prometrium 200 mg per vagina daily Comments: None Kim Khan MD 08/19/2023 documented in this encounter [facility] 08-17-2023 Note HNO ID: [id number] Author: МАРИЯ LABOY MD Service: ? Author Type: Physician Type: Progress Notes Filed: 08/23/2023 15:57 Note Text: CC: Patient presents with: New Patient: SHDA ref by Fina Tate Consultation requested by Dr. Gallagher for an opinion regarding SDHA mutation. My final recommendations will be communicated back to the requesting physician by way of shared medical record or letter via [place] mail HPI: Lissa Rivas is a 28 year old female with PMH significant for SDHA mutation, found on genetic testing while trying for , who presents to [facility] care. 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 Patient does report having spontaneous episodes of feeling like her heart is racing, anxiety, and feeling flushed at times. Most recent metanephrines and imaging negative. Patient denies any dysphagia, pain in the head/neck, or previous history of head AND neck surgery. ALLERGIES No Known Allergies Current Outpatient Medications on File Prior to Visit Medication Sig metFORMIN ER (GLUCOPHAGE XR) 500 mg 24 hr tablet Take 3 tablets by mouth daily with breakfast. Start with 1 tablet daily and slowly increase the dose up to 3 tablets daily. letrozole (FEMARA) 2.5 mg tablet Take 2 tablets by mouth once daily. Take day 3-7 of her cycle (Patient not taking: Reported on 08/17/2023) PNV no.95/ferrous fum/folic ac ( ORAL) Take 1 tablet by mouth once daily. (Patient not taking: Reported on 08/17/2023) medroxyPROGESTERone (PROVERA) 10 mg tablet Take 1 tablet by mouth once daily for 10 days. No current facility-administered medications on file prior to visit. 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 GENERAL: No weight loss, malaise or fevers. HEENT: Negative for frequent or significant headaches, No changes in hearing or vision, no nose bleeds or other nasal problems NECK: Negative for goiter, pain or significant neck swelling RESPIRATORY: Negative for cough, hemoptysis, wheezing, COPD, dyspnea or shortness of breath CARDIOVASCULAR: Negative for chest pain, leg swelling, hypertension, CHF or palpitations The remainder of the review of systems is negative. PHYSICAL EXAM (detailed): Constitutional: * LMP 03/29/2023 * General appearance: Well developed, well nourished female without obvious deformities. Patient has a normal body habitus and is well groomed. * Communication: The patient speaks with a normal voice without hoarseness or breaks in speech. Head and Face: * Overall appearance: No evident asymetries, obvious scars, lesions or masses. Palpation of face did not reveal any sinus tenderness. * Parotid and submandibular glands: No masses, tenderness or swelling. * Facial strength: House-Brackmann 1/6 bilaterally. Eyes: * Extraocular movements are intact bilaterally and primary gaze alignment is normal. * No evidence of ectropion present. Ears, Nose, Mouth and Throat: * External ears and nose: Normal in appearance, without scars, lesions, or masses. * Ears: Otoscopic examination demonstrates external auditory canals are normal bilaterally. The tympanic membranes are intact and mobile to pneumotoscopy bilaterally. * Nasal exam: Nasal mucosa is pink and the septum is midline, visualized turbinates are normal in appearance. * Mastication: The teeth appear healthy, and the lips and gums are without lesions. * Oral cavity and oropharynx: The oral mucosa, hard and soft palates, tongue, tonsil area, and posterior pharyngeal mucosa are without lesions or notable assymetries. Moist mucus membranes present. Neck: * Neck: The neck appears symmetric without scars, and on palpation is without masses, lymphadenopathy or crepitus. Trachea is midline. * Thyroid: There are no masses, thyromegaly, thyroid nodules or tenderness on palpation. Neurologic: * Mental status: Patient is alert and oriented to person, place and time Mood and affect are appropriate PROCEDURES: PROCEDURE NOTE: PROCEDURE: Flexible laryngoscopy PREOPERATIVE DIAGNOSIS: Vocal fold assessment POSTOPERATIVE DIAGNOSIS: same as pre-op INDICATIONS: Evaluation of upper aerodigestive tract ANESTHESIA: (more content not included)... [facility] 08-17-2023 History of Present illness Narrative CC: Patient presents with: New Patient: SHDA ref by Fina Tate Consultation requested by Dr. Gallagher for an opinion regarding SDHA mutation. My final recommendations will be communicated back to the requesting physician by way of shared medical record or letter via [place] mail HPI: Lissa Rivas is a 28 year old female with PMH significant for SDHA mutation, found on genetic testing while trying for , who presents to [facility]. 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 Patient does report having spontaneous episodes of feeling like her heart is racing, anxiety, and feeling flushed at times. Most recent metanephrines and imaging negative. Patient denies any dysphagia, pain in the head/neck, or previous history of head & neck surgery. ALLERGIES No Known Allergies Current Outpatient Medications on File Prior to Visit Medication Sig metFORMIN ER (GLUCOPHAGE XR) 500 mg 24 hr tablet Take 3 tablets by mouth daily with breakfast. Start with 1 tablet daily and slowly increase the dose up to 3 tablets daily. letrozole (FEMARA) 2.5 mg tablet Take 2 tablets by mouth once daily. Take day 3-7 of her cycle (Patient not taking: Reported on 08/17/2023) PNV no.95/ferrous fum/folic ac ( ORAL) Take 1 tablet by mouth once daily. (Patient not taking: Reported on 08/17/2023) medroxyPROGESTERone (PROVERA) 10 mg tablet Take 1 tablet by mouth once daily for 10 days. No current facility-administered medications on file prior to visit. 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 GENERAL: No weight loss, malaise or fevers. HEENT: Negative for frequent or significant headaches, No changes in hearing or vision, no nose bleeds or other nasal problems NECK: Negative for goiter, pain or significant neck swelling RESPIRATORY: Negative for cough, hemoptysis, wheezing, COPD, dyspnea or shortness of breath CARDIOVASCULAR: Negative for chest pain, leg swelling, hypertension, CHF or palpitations The remainder of the review of systems is negative. PHYSICAL EXAM (detailed): Constitutional: * LMP 03/29/2023 * General appearance: Well developed, well nourished female without obvious deformities. Patient has a normal body habitus and is well groomed. * Communication: The patient speaks with a normal voice without hoarseness or breaks in speech. Head and Face: * Overall appearance: No evident asymetries, obvious scars, lesions or masses. Palpation of face did not reveal any sinus tenderness. * Parotid and submandibular glands: No masses, tenderness or swelling. * Facial strength: House-Brackmann 1/6 bilaterally. Eyes: * Extraocular movements are intact bilaterally and primary gaze alignment is normal. * No evidence of ectropion present. Ears, Nose, Mouth and Throat: * External ears and nose: Normal in appearance, without scars, lesions, or masses. * Ears: Otoscopic examination demonstrates external auditory canals are normal bilaterally. The tympanic membranes are intact and mobile to pneumotoscopy bilaterally. * Nasal exam: Nasal mucosa is pink and the septum is midline, visualized turbinates are normal in appearance. * Mastication: The teeth appear healthy, and the lips and gums are without lesions. * Oral cavity and oropharynx: The oral mucosa, hard and soft palates, tongue, tonsil area, and posterior pharyngeal mucosa are without lesions or notable assymetries. Moist mucus membranes present. Neck: * Neck: The neck appears symmetric without scars, and on palpation is without masses, lymphadenopathy or crepitus. Trachea is midline. * Thyroid: There are no masses, thyromegaly, thyroid nodules or tenderness on palpation. Neurologic: * Mental status: Patient is alert and oriented to person, place and time Mood and affect are appropriate PROCEDURES: PROCEDURE NOTE: PROCEDURE: Flexible laryngoscopy PREOPERATIVE DIAGNOSIS: Vocal fold assessment POSTOPERATIVE DIAGNOSIS: same as pre-op INDICATIONS: Evaluation of upper aerodigestive tract ANESTHESIA: Phenylephrine and lidocaine PROCEDURE: Vasoconstriction was applied with spray to the both side(s) of the nose. After waiting an appropriate period of time for vasoconstriction to become effective, a flexible endoscope was passed through the right side(s) of the nose. The scope was advanced to visualize the nasopharynx, oropharynx, hypopharynx and larynx. FINDINGS: Examination of the nasal cavity demonstrates pink mucosa without any polyps or masses. Nasopharynx was clear with patent eustachian tube orifices bilaterally. Oropharynx demonstrated a normal base of tongue and posterior pharynx. Larynx demonstrated normal supraglottis and true vocal folds were mobile and symmetric bilaterally. Hypopharynx was clear. Patient tolerated the procedure well. Procedure was performed under supervision of Dr. Мария Laboy PERTINENT LABS: 06/17/23 Metanephrine: 37 PERTINENT IMAGIN06/23/23 CT Neck IMPRESSION: No evidence for mass or adenopathy in the neck. 06/23/23 CT Chest IMPRESSION: No CT evidence of acute abnormality. Unremarkable chest CT, no findings of enlarged lymph nodes in the thorax. 06/23/23 CT Abd IMPRESSION: 1. Hepatic steatosis. 2. No mass, lymphadenopathy or splenomegaly in the abdomen. MEDICAL DECISION MAKING: Lissa Rivas is a 28 year old female with PMH significant for SDHA mutation, found on genetic testing while trying for , who presents to establish care. 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 Exam today negative for any head and neck lesions. Imaging was negative for any suspicious nodules or masses. Plan: - Return to clinic in [address] neck, chest, and imaging - Labs per endocrinology SIGNATURE: Julita Rosario MD for the service of Dr. Мария Laboy PATIENT NAME: Lissa Rivas DATE: August 17, 2023 TIME: 10:53 AM I participated in the history and physical exam of Lissa Rivas. I discussed the management of Lissa Rivas with the resident. I reviewed the resident's note and agree with the documented findings and plan of care. Мария Laboy MD documented in this encounter [facility] 08-17-2023 Nurse Note Tobacco Use: Never Was smoking cessation packet given? N/A - Patient is a non-smoker or quit >1 year ago. Was a referral initiated?N/A Patient is a non-smoker [facility] 08-17-2023 Nurse Note Tobacco Use: Never Was smoking cessation packet given? N/A - Patient is a non-smoker or quit >1 year ago. Was a referral initiated?N/A Patient is a non-smoker documented in this encounter [facility] 08-17-2023 Note HNO ID: [id number] Author: MIRTA GALLAGHER MD Service: ? Author Type: Physician Type: Progress Notes Filed: 08/17/2023 10:52 Note Text: DATE: 08/17/2023 ENDOCRINOLOGY OUTPATIENT NOTE Ms. Lissa Rivas is a 28 year old female who presents with SDHA mutation. She had genetic testing which identified a pathogenic variant (mutation) in the gene SDHA, del promoter - exon 9. This indicates that she has the Hereditary Paraganglioma Pheochromocytoma Syndrome. She is trying for and her Ob sent her for breast cancer screening and this came out with the SDHA mutation. Her mother was tested and she has the mutation too. Took three rounds of letrozole so far. had semen analysis and is fine. Periods are regular now after progesterone one round. Menarche at age 13, periods were not regular earlier. Acne: no Hirsutism: on upper lip and she shaves once a week. Mother has hypothyroidism and HTN. Mother is on thyroid medication. From genetics note: SDHA Hereditary Paraganglioma- Pheochromocytoma syndrome Mutations in SDHA are associated with a risk of developing pheochromocytoma (PCC) as well as paraganglioma (PGL) of the abdomen, chest, and head/neck. A pheochromocytoma (aka ?pheo? or PCC) is a type of tumor that develops in the adrenal gland. A PCC is hormonally active and can cause the adrenal gland to produce high levels of catecholamines that may lead to high blood pressure, headaches, heart palpitations, nausea, and/or vomiting. A paraganglioma (PGL) is a tumor that typically arises from hormonally inactive parasympathetic tissue, such as the carotid, vagal, or jugular bodies. They are usually found in the head or neck (HNP) and often do not cause symptoms. Hormonally active extra-adrenal sympathetic PGLs can occur in the chest, abdomen, or pelvis and may cause symptoms similar to a pheochromocytoma. Like PCCs, PGLs are usually benign but can sometimes be malignant. Some individuals with hereditary paraganglioma-pheochromocytoma syndrome may never develop a PCC or PGL, while others could develop one or multiple PCC or PGL. The age at diagnosis of PCC/PGL in individuals with SDHA mutations is highly variable and the risk of malignancy appears to be low. Most individuals with an SDHA mutation will not develop PCC/PGL - the lifetime risk is estimated at 10%. For those who have had a tumor, there is approximately a 9% risk of subsequent tumor(s). Gastrointestinal stromal tumors (GIST) are rare, typically adult-onset sarcomas that may be either benign or malignant. GIST can develop anywhere along the GI tract, which includes the esophagus, stomach, gallbladder, liver, small intestine, colon, rectum, anus, and lining of the gut. Most SDH-associated GISTs start in the stomach. While GIST occur more frequently in individuals with SDHA mutations compared to those in the general population, the overall risk is still relatively low. For people who have a mutation in SDHA, surveillance options include imaging of the head/neck, chest/abdomen/pelvis region every 2-3 years in addition to blood or urine metanephrine screening every year. Screening is recommended to begin around age 10-15y or earlier based on family history (Angela Ribeiro et al. Joanna Rev Endocrinol. 2020;17(7):435-444). Patient was encouraged to pursue discussions with appropriate care providers in Endocrinology (Dr. Mirta Gallagher) and Otolaryngology (Dr. Мария Laboy) to review medical management options and determine the best plan for her own care. Biallelic SDHA mutations (that is, mutations in both copies of SDHA) cause a rare condition known as Mitochondrial complex II deficiency. This autosomal recessive condition is characterized by neurodegeneration and encephalomyopathy. For there to be a risk of this condition in offspring, both parents each have to have a pathogenic variant in SDHA; in such a case, the risk of having an affected child is 25%. Carrier testing for the patient's partner for mutations in SDHA could be considered if it would inform reproductive decision-making and/or risk assessment and management. Variant(s) of uncertain significance (VUS) detected: BRCA2 dup exons 1-3. A VUS is a genetic variant for which insufficient data exists in order to determine if it is associated with disease (deleterious mutation) or is a normal genetic variant which can occur in the population without disease (benign polymorphism). PAST MEDICAL HISTORY Diagnosis Date Anxiety Asthma Chlamydia age 16 Chronic fatigue syndrome Generalized anxiety disorder Genital herpes simplex 2020 HSV, symptoms gentially GERD (gastroesophageal reflux disease) Menorrhagia Obesity due to excess calories PCOS (polycystic ovarian syndrome) Seasonal allergies PAST SURGICAL HISTORY Procedure Laterality Date EYE SURGERY HX 03/2020 Emani Current Outpatient Medications Medication Sig letrozo (more content not included)... [facility] 08-17-2023 History of Present illness Narrative DATE: 08/17/2023 ENDOCRINOLOGY OUTPATIENT NOTE Ms. Lissa Rivas is a 28 year old female who presents with SDHA mutation. She had genetic testing which identified a pathogenic variant (mutation) in the gene SDHA, del promoter - exon 9. This indicates that she has the Hereditary Paraganglioma Pheochromocytoma Syndrome. She is trying for and her Ob sent her for breast cancer screening and this came out with the SDHA mutation. Her mother was tested and she has the mutation too. Took three rounds of letrozole so far. had semen analysis and is fine. Periods are regular now after progesterone one round. Menarche at age 13, periods were not regular earlier. Acne: no Hirsutism: on upper lip and she shaves once a week. Mother has hypothyroidism and HTN. Mother is on thyroid medication. From genetics note: SDHA Hereditary Paraganglioma- Pheochromocytoma syndrome Mutations in SDHA are associated with a risk of developing pheochromocytoma (PCC) as well as paraganglioma (PGL) of the abdomen, chest, and head/neck. A pheochromocytoma (aka pheo or PCC) is a type of tumor that develops in the adrenal gland. A PCC is hormonally active and can cause the adrenal gland to produce high levels of catecholamines that may lead to high blood pressure, headaches, heart palpitations, nausea, and/or vomiting. A paraganglioma (PGL) is a tumor that typically arises from hormonally inactive parasympathetic tissue, such as the carotid, vagal, or jugular bodies. They are usually found in the head or neck (HNP) and often do not cause symptoms. Hormonally active extra-adrenal sympathetic PGLs can occur in the chest, abdomen, or pelvis and may cause symptoms similar to a pheochromocytoma. Like PCCs, PGLs are usually benign but can sometimes be malignant. Some individuals with hereditary paraganglioma-pheochromocytoma syndrome may never develop a PCC or PGL, while others could develop one or multiple PCC or PGL. The age at diagnosis of PCC/PGL in individuals with SDHA mutations is highly variable and the risk of malignancy appears to be low. Most individuals with an SDHA mutation will not develop PCC/PGL - the lifetime risk is estimated at 10%. For those who have had a tumor, there is approximately a 9% risk of subsequent tumor(s). Gastrointestinal stromal tumors (GIST) are rare, typically adult-onset sarcomas that may be either benign or malignant. GIST can develop anywhere along the GI tract, which includes the esophagus, stomach, gallbladder, liver, small intestine, colon, rectum, anus, and lining of the gut. Most SDH-associated GISTs start in the stomach. While GIST occur more frequently in individuals with SDHA mutations compared to those in the general population, the overall risk is still relatively low. For people who have a mutation in SDHA, surveillance options include imaging of the head/neck, chest/abdomen/pelvis region every 2-3 years in addition to blood or urine metanephrine screening every year. Screening is recommended to begin around age 10-15y or earlier based on family history (Angela Ribeiro et al. Joanna Rev Endocrinol. 202;17(7):435-444). Patient was encouraged to pursue discussions with appropriate care providers in Endocrinology (Dr. Mirta Gallagher) and Otolaryngology (Dr. Мария Laboy) to review medical management options and determine the best plan for her own care. Biallelic SDHA mutations (that is, mutations in both copies of SDHA) cause a rare condition known as Mitochondrial complex II deficiency. This autosomal recessive condition is characterized by neurodegeneration and encephalomyopathy. For there to be a risk of this condition in offspring, both parents each have to have a pathogenic variant in SDHA; in such a case, the risk of having an affected child is 25%. Carrier testing for the patient's partner for mutations in SDHA could be considered if it would inform reproductive decision-making and/or risk assessment and management. Variant(s) of uncertain significance (VUS) detected: BRCA2 dup exons 1-3. A VUS is a genetic variant for which insufficient data exists in order to determine if it is associated with disease (deleterious mutation) or is a normal genetic variant which can occur in the population without disease (benign polymorphism). PAST MEDICAL HISTORY Diagnosis Date Anxiety Asthma Chlamydia age 16 Chronic fatigue syndrome Generalized anxiety disorder Genital herpes simplex 2020 HSV, symptoms gentially GERD (gastroesophageal reflux disease) Menorrhagia Obesity due to excess calories PCOS (polycystic ovarian syndrome) Seasonal allergies PAST SURGICAL HISTORY Procedure Laterality Date EYE SURGERY HX 03/2020 Emani Current Outpatient Medications Medication Sig letrozole (FEMARA) 2.5 mg tablet Take 2 tablets by mouth once daily. Take day 3-7 of her cycle PNV no.95/ferrous fum/folic ac ( ORAL) Take 1 tablet by mouth once daily. metFORMIN ER (GLUCOPHAGE XR) 500 mg 24 hr tablet Take 3 tablets by mouth daily with breakfast. Start with 1 tablet daily and slowly increase the dose up to 3 tablets daily. medroxyPROGESTERone (PROVERA) 10 mg tablet Take 1 tablet by mouth once daily for 10 days. No current facility-administered medications for this visit. Social History Tobacco Use Smoking status: Never Smokeless tobacco: Never Substance Use Topics Alcohol use: Yes Comment: rare, socially Drug use: Never ALLERGIES No Known Allergies FAMILY HISTORY Problem Relation Age of Onset Hypertension Mother Asthma Father Diabetes Father Heart disease Father Stroke Father Kidney Disease Father Arrhythmia Father Atrial fibrillation COPD Father Hypertension Father Hyperlipidemia Father Arrhythmia Half-sister Atrial fibrillation Breast Cancer Maternal Grandmother 40 - 49 Arthritis Paternal Grandmother Stroke Paternal Grandmother COPD Paternal Grandmother Arrhythmia Paternal Grandmother Atrial fibrillation Heart disease Paternal Grandmother Diabetes Paternal Grandmother Prostate Cancer Maternal Uncle 40 - 49 metastatic Lung Cancer Maternal Uncle 45 - 49 Breast Cancer Maternal great-grandmother Breast Cancer Maternal Aunt 45 Review of Systems: Answers submitted by the patient for this visit: Endocrine Review of Systems (Submitted on 08/17/2023) Fatigue: Yes Night sweats: Yes Recent unintentional weight change: No Skin Color Changes: Yes Post-Nasal Drip: No Thyroid Pain (lower neck): No Trouble Swallowing: No Vision Disturbance: No Chest pain: No Leg Swelling: No Blood Clots?: No Leg Pain while walking?: No Difficulty Breathing?: No Heartburn: No Nausea: Yes Vomiting: No Diarrhea: Yes Constipation: No Abdominal pain: No Bone Pain?: No Muscle aches: No Muscle weakness: No Joint pain or stiffness: No Headaches: Yes Dizziness: No Numbness?: No Urgency to Urinate?: No Increased Urination: No Slow or Small Urine Stream?: Yes Are your menstrual cycles regular?: No Are your menstrual cycles irregular?: Yes Have your menstrual cycles stopped?: No Flushing: No Hot Flashes?: No Increased Thirst: No Change in Body Hair?: Yes Cold Intolerance: No Heat Intolerance: Yes Physical Examination BP 129/79 Pulse 73 Wt 229 lb 8 oz (104.1kg) LMP 03/29/2023 General: alert and oriented X 3, well appearing, pleasant and in no acute distress HEENT: eyes without erythema or icterus, no neck lymphadenopathy or mass. No goiter or palpable thyroid nodule Skin: no rash, nail changes Cardiac: RRR, no murmur gallop or rub, no peripheral edema Respiratory: CTAX2, no wheezing or rhonchi LABS: Latest Ref Rng 01/04/2023 04/19/2023 06/17/2023 07/29/2023 eGFR >=60 mL/min/1.73m 105 Hemoglobin A1C 4.3 - 5.6 % 5.6 Estimated Average Glucose mg/dL 114 Metanephrine, Plasma 12 - 67 pg/mL 37 Normetanephrine, Free Plasma 18 - 101 pg/mL 67 , Urine neg - pos negative Quality Check yes/no Yes Anti Mullerian Hormone 0.89 - 9.85 ng/mL 10.91 (H) Vitamin D 25 Hydroxy 31.0 - 80.0 ng/mL 24.2 (L) TSH 0.270 - 4.200 mIU/L 3.430 Estradiol 17B 8 - 37 pg/mL 47 (H) Progesterone See comment ng/mL 0.3 4.8 Prolactin 4.5 - 26.8 ng/mL 8.8 Legend: (H) High (L) Low IMAGIN06/23/2023 CT neck soft tissue IMPRESSION: No evidence for mass or adenopathy in the neck. CT chest IMPRESSION: No CT evidence of acute abnormality. Unremarkable chest CT, no findings of enlarged lymph nodes in the thorax. CT abdomen/pelvis IMPRESSION: 1. Hepatic steatosis. 2. No mass, lymphadenopathy or splenomegaly in the abdomen. Impression and Plan: Ms. 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 She is asymptomatic and her plasma metanephrine is normal and CT imaging neck, chest, abdomen and pelvis are all fine. She will need annual plasma metanephrine screening. Has been trying to conceive for a year and a half unsuccessfully. Reports steroid injections x 2 in left shoulder in 2016. Does not appear Cushingoid. Wants to get seen in PCOS clinic in women's health. Consult placed - she will notify me in a week if she has not heard from them and I will reach out to Dr. James. TSH is over 3 from 12/2022 and her mother has hypothyroidism. Will test TSH, FT4 and TPO Ab and discussed with her that if the TPO Ab are positive, I would like to start her on LT4 as we like to keep the TSH under 2.5 prior to in this patient population. Discussed the appropriate method of taking it. She is agreeable. She will also notify me as soon as she conceives as I will need to monitor the thyroid labs if I start her on medications. No CT for SDHA mutation during . Discussed that she will need annual plasma metanephrine levels checked. We will communicate via my chart . Mirta Gallagher MD, MPH Endocrinology documented in this encounter [facility] 08-17-2023 Instructions Latosha Wesley MA - 08/17/2023 9:53 AM EDT Thank you for choosing the [facility] Department of Endocrinology, Diabetes and Metabolism. Did you know that you need to call 48 hours in advance of your scheduled visit, if you are unable to make your appointment? The Endocrinology and Metabolism [place] thanks you for your commitment, because patients not showing to their appointment results in a lost opportunity for patients to receive [facility] health care at the [facility]. To Cancel an appointment, please choose one of the following: - Call the Appointment Call Center at [phone] - From [place], Go to Appointments - Cancel Appts If cancelling, consider your need to reschedule to prevent further delays in your care. To Schedule an appointment, please choose one of the following: - Call the Appointment Call Center at [phone] - From [place], Go to Appointments - Request an Appt documented in this encounter [facility] 07-29-2023 History of Present illness Narrative Radiology Service Progress Note PATIENT NAME: Lissa Rivas DATE OF SERVICE: July 29, 2023 TIME: 1:58 PM PATIENT IDENTITY VERIFICATION COMPLETED USING TWO (2) IDENTIFIERS: Name and Date of confirmed by patient verbally. FALL SCREENING: Has the patient had 2 falls in the last year or 1 fall with injury or currently using an Ambulatory Assistive Device (Walker, Cane, Wheelchair, Crutches, etc.)? No PATIENT GENDER DATA: Female. status: : No status: NO. PATIENT RELEVANT IMPLANT DATA REVIEWED: Not Applicable PATIENT PRESENTS WITH AN IMPLANTABLE OR ATTACHED STRUCTURAL MILL SUPERVISOR: No RADIOLOGY DEPARTMENT: General X-ray: Exam(s) Completed: HSG PERIPHERAL IV DATA: Not applicable SIGNED BY: RT Clark(Loc) July 29, 2023 1:58 PM documented in this encounter [facility] 07-29-2023 Note HNO ID: [id number] Author: FLIP NEWMAN RT(Loc) Service: Radiology Author Type: Technologist Type: Progress Notes Filed: 07/29/2023 13:58 Note Text: Radiology Service Progress Note PATIENT NAME: Lissa Rivas DATE OF SERVICE: July 29, 2023 TIME: 1:58 PM PATIENT IDENTITY VERIFICATION COMPLETED USING TWO (2) IDENTIFIERS: Name and Date of confirmed by patient verbally. FALL SCREENING: Has the patient had 2 falls in the last year or 1 fall with injury or currently using an Ambulatory Assistive Device (Walker, Cane, Wheelchair, Crutches, etc.)? No PATIENT GENDER DATA: Female. status: : No status: NO. PATIENT RELEVANT IMPLANT DATA REVIEWED: Not Applicable PATIENT PRESENTS WITH AN IMPLANTABLE OR ATTACHED STRUCTURAL MILL SUPERVISOR: No RADIOLOGY DEPARTMENT: General X-ray: Exam(s) Completed: HSG PERIPHERAL IV DATA: Not applicable SIGNED BY: RT Clark(Loc) July 29, 2023 1:[address] [facility] 07-29-2023 Note HNO ID: [id number] Author: ORTEGA MORRISSEY APRN.CNM Service: ? Author Type: Nurse Practitioner Type: Procedures Filed: 07/29/2023 14:50 Note Text: WHI GAYATHRI HYSTEROSALPINGOGRAM NOTE Date: July 29, 2023 Lissa was seen in Radiology for a Hysterosalpingogram for fertility testing. The procedure including risks, benefits and options was discussed with the patient. There are no contraindications to the procedure. Lissa expressed understanding and agreed to proceed. UNIVERSAL PROTOCOL / SAFETY CHECKLIST UNIVERSAL PROTOCOL / SAFETY CHECKLIST Procedure to be Performed: hysterosalpingogram Sign In: A Moment of CARE was completed. Personnel directly involved with the procedure wore the appropriate PPE (Personal Protective Equipment). No special equipment needed. Patient/Surrogate Stated/Verified: PATIENT VERIFIED(optional for EMERGENT procedures): Patient name, Date of , Relevant allergies, and The intended procedure Time Out Communication: Intended patient and procedure match the source documents. Consent documented and matches the intended procedure. No relevant labs, photos, and/or imaging studies were applicable for review. No correct side/site applicable for marking and visibility. No medications required for procedure. No fire risk assessment and interventions applicable. No implant(s) inserted. Sign Out: SIGN OUT (optional for EMERGENT procedures): No specimen collected. All instruments, equipment, possible retained foreign bodies accounted for. Post-procedure follow-up management communicated and Plan of Care Visit completed when applicable. Ortega Morrissey APRN.JASVIR Procedure: The cervix is visualized, prepped with Hibiclens. The canula/Balloon catheter was inserted into the cervix and dye injected into the cavity. Using Fluroscopy the uterine cavity is normal and the fallopian tubes are patent bilaterally without evidence of loculation. Ortega Morrissey APRN.CNM [facility] 07-29-2023 Procedure note KAREN TRINH HYSTEROSALPINGOGRAM NOTE Date: July 29, 2023 Lissa was seen in Radiology for a Hysterosalpingogram for fertility testing. The procedure including risks, benefits and options was discussed with the patient. There are no contraindications to the procedure. Lissa expressed understanding and agreed to proceed. UNIVERSAL PROTOCOL / SAFETY CHECKLIST UNIVERSAL PROTOCOL / SAFETY CHECKLIST Procedure to be Performed: hysterosalpingogram Sign In: A Moment of CARE was completed. Personnel directly involved with the procedure wore the appropriate PPE (Personal Protective Equipment). No special equipment needed. Patient/Surrogate Stated/Verified: PATIENT VERIFIED(optional for EMERGENT procedures): Patient name, Date of , Relevant allergies, and The intended procedure Time Out Communication: Intended patient and procedure match the source documents. Consent documented and matches the intended procedure. No relevant labs, photos, and/or imaging studies were applicable for review. No correct side/site applicable for marking and visibility. No medications required for procedure. No fire risk assessment and interventions applicable. No implant(s) inserted. Sign Out: SIGN OUT (optional for EMERGENT procedures): No specimen collected. All instruments, equipment, possible retained foreign bodies accounted for. Post-procedure follow-up management communicated and Plan of Care Visit completed when applicable. Ortega Morrissey APRN.CNM Procedure: The cervix is visualized, prepped with Hibiclens. The canula/Balloon catheter was inserted into the cervix and dye injected into the cavity. Using Fluroscopy the uterine cavity is normal and the fallopian tubes are patent bilaterally without evidence of loculation. Ortega Morrissey APRN.CNM [facility] 07-29-2023 Procedure note Arti TRINH HYSTEROSALPINGOGRAM NOTE Date: July 29, 2023 Lissa was seen in Radiology for a Hysterosalpingogram for fertility testing. The procedure including risks, benefits and options was discussed with the patient. There are no contraindications to the procedure. Lissa expressed understanding and agreed to proceed. UNIVERSAL PROTOCOL / SAFETY CHECKLIST UNIVERSAL PROTOCOL / SAFETY CHECKLIST Procedure to be Performed: hysterosalpingogram Sign In: A Moment of CARE was completed. Personnel directly involved with the procedure wore the appropriate PPE (Personal Protective Equipment). No special equipment needed. Patient/Surrogate Stated/Verified: PATIENT VERIFIED(optional for EMERGENT procedures): Patient name, Date of , Relevant allergies, and The intended procedure Time Out Communication: Intended patient and procedure match the source documents. Consent documented and matches the intended procedure. No relevant labs, photos, and/or imaging studies were applicable for review. No correct side/site applicable for marking and visibility. No medications required for procedure. No fire risk assessment and interventions applicable. No implant(s) inserted. Sign Out: SIGN OUT (optional for EMERGENT procedures): No specimen collected. All instruments, equipment, possible retained foreign bodies accounted for. Post-procedure follow-up management communicated and Plan of Care Visit completed when applicable. Ortega Morrissey APRN.CNM Procedure: The cervix is visualized, prepped with Hibiclens. The canula/Balloon catheter was inserted into the cervix and dye injected into the cavity. Using Fluroscopy the uterine cavity is normal and the fallopian tubes are patent bilaterally without evidence of loculation. Ortega Morrissey APRN.CNM documented in this encounter [facility] 06-23-2023 Note HNO ID: [id number] Author: RADHA HAWKINS RT(Loc) Service: Radiology Author Type: Parts Lister Type: Progress Notes Filed: 06/23/2023 09:10 Note Text: Radiology Service Progress Note DATE OF SERVICE: June 23, 2023 TIME: 9:09 AM PATIENT IDENTITY VERIFICATION COMPLETED USING TWO (2) STANDARD IDENTIFIERS: Name and Date of confirmed by patient verbally. FALL SCREENING: Has the patient had 2 falls in the last year or 1 fall with injury or currently using an Ambulatory Assistive Device (Walker, Cane, Wheelchair, Crutches, etc.)? No PATIENT GENDER DATA: Female. status: : No status: NO. PATIENT RELEVANT IMPLANT DATA REVIEWED: Not Applicable PATIENT PRESENTS WITH AN IMPLANTABLE OR ATTACHED STRUCTURAL MILL SUPERVISOR: No ALLERGIES: Reviewed and unchanged CONTRAST ALLERGY: NO. EXAM: CT -CONTRAST INDUCED NEPHROPATHY RISK FACTORS: Not applicable CREATININE: Creatinine Date Value Ref Range Status 01/04/2023 0.79 0.58 - 0.96 mg/dL Final Estimated Glomerular Filtration Rate Date Value Ref Range Status 01/04/2023 105 >=60 mL/min/1.73m? Final Comment: Estimated Glomerular Filtration Rate (eGFR) is calculated using the 2020 CKD-EPI creatinine equation. This equation utilizes serum creatinine, sex, and age as parameters. The creatinine assay has traceable calibration to isotope dilution-mass spectrometry. Refer to KDIGO guidelines for clinical interpretation. In patients with unstable renal function, e.g. those with acute kidney injury, the eGFR may not accurately reflect actual GFR. P.O.C.T. RESULTS: POC done: Yes, See Lab Tab June 23, 2023 TREATMENT: N/A PERIPHERAL IV DATA: Ambulatory: A peripheral IV was started in the Left antecubital site with a Angio cath: 22 gauge. RADIOLOGY DEPARTMENT: CT; Exam(s) Completed: Abdomen, Chest, and Neck SIGNATURE: RT Kieran(R) PATIENT NAME: Lissa Rivas DATE: June 23, 2023 TIME: 9:09 AM [facility] 06-16-2023 Miscellaneous Notes Addended by: МАРИЯ LABOY on: 06/16/2023 04:39 PM Modules accepted: Orders Spoke with patient regarding screening for paraganglioma prior to . 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 Patient would like baseline screening for paraganglioma prior to planned , but is also not interested in delaying infertility treatments. Discussed getting plasma metanephrines and baseline CTs. Patient understands she cannot have CTs during . Will coordinate consults with Dr. Mirta Gallagher and Dr. Мария Laboy. Patient will be updated via Oculus VR when orders are placed for imaging. Fina Lizama MS, [facility] Licensed, Certified Genetic Counselor documented in this encounter [facility] 06-14-2023 Telephone encounter Note Patient had questions about impact of testing on their fertility treatments. Discussed the following information after discussing with Sania Lizama CGC. It is a low risk she'd have a functional tumor, but, yes it is generally recommended to r/o a pheo before a planned . Cannot get CTs when . She likely will not get in for a CT all that soon. Patient was wondering how long CT scan would take. She's supposed to start her next dose of medication today, and would be willing to put if off for a month potentially, but not necessarily multiple months. They have decided not to wait for her to get tested to try for children. Elsa Puentes MS, CGC Licensed, Certified Genetic Counselor [facility] Work Phone: 06-14-2023 Miscellaneous Notes Patient had questions about impact of testing on their fertility treatments. Discussed the following information after discussing with Sania Lizama CGC. It is a low risk she'd have a functional tumor, but, yes it is generally recommended to r/o a pheo before a planned . Cannot get CTs when . She likely will not get in for a CT all that soon. Patient was wondering how long CT scan would take. She's supposed to start her next dose of medication today, and would be willing to put if off for a month potentially, but not necessarily multiple months. They have decided not to wait for her to get tested to try for children. Elsa Puentes MS, [facility] Licensed, Certified Genetic Counselor Patient name and was confirmed at initiation of discussion. Lissa Rivas's Integrated BRACAnalysis with Humberto through [facility] was positive for a pathogenic variant in SDHA, del promoter - exon 9. 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 SDHA Hereditary Paraganglioma- Pheochromocytoma syndrome Mutations in SDHA are associated with a risk of developing pheochromocytoma (PCC) as well as paraganglioma (PGL) of the abdomen, chest, and head/neck. A pheochromocytoma (aka pheo or PCC) is a type of tumor that develops in the adrenal gland. A PCC is hormonally active and can cause the adrenal gland to produce high levels of catecholamines that may lead to high blood pressure, headaches, heart palpitations, nausea, and/or vomiting. A paraganglioma (PGL) is a tumor that typically arises from hormonally inactive parasympathetic tissue, such as the carotid, vagal, or jugular bodies. They are usually found in the head or neck (HNP) and often do not cause symptoms. Hormonally active extra-adrenal sympathetic PGLs can occur in the chest, abdomen, or pelvis and may cause symptoms similar to a pheochromocytoma. Like PCCs, PGLs are usually benign but can sometimes be malignant. Some individuals with hereditary paraganglioma-pheochromocytoma syndrome may never develop a PCC or PGL, while others could develop one or multiple PCC or PGL. The age at diagnosis of PCC/PGL in individuals with SDHA mutations is highly variable and the risk of malignancy appears to be low. Most individuals with an SDHA mutation will not develop PCC/PGL - the lifetime risk is estimated at 10%. For those who have had a tumor, there is approximately a 9% risk of subsequent tumor(s). Gastrointestinal stromal tumors (GIST) are rare, typically adult-onset sarcomas that may be either benign or malignant. GIST can develop anywhere along the GI tract, which includes the esophagus, stomach, gallbladder, liver, small intestine, colon, rectum, anus, and lining of the gut. Most SDH-associated GISTs start in the stomach. While GIST occur more frequently in individuals with SDHA mutations compared to those in the general population, the overall risk is still relatively low. For people who have a mutation in SDHA, surveillance options include imaging of the head/neck, chest/abdomen/pelvis region every 2-3 years in addition to blood or urine metanephrine screening every year. Screening is recommended to begin around age 10-15y or earlier based on family history (Angela Ribeiro et al. Joanna Rev Endocrinol. 2020;17(7):435-444). Patient was encouraged to pursue discussions with appropriate care providers in Endocrinology (Dr. Mirta Gallagher) and Otolaryngology (Dr. Мария Laboy) to review medical management options and determine the best plan for her own care. Biallelic SDHA mutations (that is, mutations in both copies of SDHA) cause a rare condition known as Mitochondrial complex II deficiency. This autosomal recessive condition is characterized by neurodegeneration and encephalomyopathy. For there to be a risk of this condition in offspring, both parents each have to have a pathogenic variant in SDHA; in such a case, the risk of having an affected child is 25%. Carrier testing for the patient's partner for mutations in SDHA could be considered if it would inform reproductive decision-making and/or risk assessment and management. Variant(s) of uncertain significance (VUS) detected: BRCA2 dup exons 1-3. A VUS is a genetic variant for which insufficient data exists in order to determine if it is associated with disease (deleterious mutation) or is a normal genetic variant which can occur in the population without disease (benign polymorphism). Please see Oculus VR message for further discussion. CHRISTIE Magdaleno Licensed, Certified Genetic Counselor documented in this encounter [facility] 06-10-2023 Telephone encounter Note Patient name and was confirmed at initiation of discussion. Lissa Rivas's Integrated BRACAnalysis with Humberto through [employer] was positive for a pathogenic variant in SDHA, del promoter - exon 9. 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 SDHA Hereditary Paraganglioma- Pheochromocytoma syndrome Mutations in SDHA are associated with a risk of developing pheochromocytoma (PCC) as well as paraganglioma (PGL) of the abdomen, chest, and head/neck. A pheochromocytoma (aka pheo or PCC) is a type of tumor that develops in the adrenal gland. A PCC is hormonally active and can cause the adrenal gland to produce high levels of catecholamines that may lead to high blood pressure, headaches, heart palpitations, nausea, and/or vomiting. A paraganglioma (PGL) is a tumor that typically arises from hormonally inactive parasympathetic tissue, such as the carotid, vagal, or jugular bodies. They are usually found in the head or neck (HNP) and often do not cause symptoms. Hormonally active extra-adrenal sympathetic PGLs can occur in the chest, abdomen, or pelvis and may cause symptoms similar to a pheochromocytoma. Like PCCs, PGLs are usually benign but can sometimes be malignant. Some individuals with hereditary paraganglioma-pheochromocytoma syndrome may never develop a PCC or PGL, while others could develop one or multiple PCC or PGL. The age at diagnosis of PCC/PGL in individuals with SDHA mutations is highly variable and the risk of malignancy appears to be low. Most individuals with an SDHA mutation will not develop PCC/PGL - the lifetime risk is estimated at 10%. For those who have had a tumor, there is approximately a 9% risk of subsequent tumor(s). Gastrointestinal stromal tumors (GIST) are rare, typically adult-onset sarcomas that may be either benign or malignant. GIST can develop anywhere along the GI tract, which includes the esophagus, stomach, gallbladder, liver, small intestine, colon, rectum, anus, and lining of the gut. Most SDH-associated GISTs start in the stomach. While GIST occur more frequently in individuals with SDHA mutations compared to those in the general population, the overall risk is still relatively low. For people who have a mutation in SDHA, surveillance options include imaging of the head/neck, chest/abdomen/pelvis region every 2-3 years in addition to blood or urine metanephrine screening every year. Screening is recommended to begin around age 10-15y or earlier based on family history (Angela Ribeiro et al. Joanna Rev Endocrinol. 2020;17(7):435-444). Patient was encouraged to pursue discussions with appropriate care providers in Endocrinology (Dr. Mirta Gallagher) and Otolaryngology (Dr. Мария Laboy) to review medical management options and determine the best plan for her own care. Biallelic SDHA mutations (that is, mutations in both copies of SDHA) cause a rare condition known as Mitochondrial complex II deficiency. This autosomal recessive condition is characterized by neurodegeneration and encephalomyopathy. For there to be a risk of this condition in offspring, both parents each have to have a pathogenic variant in SDHA; in such a case, the risk of having an affected child is 25%. Carrier testing for the patient's partner for mutations in SDHA could be considered if it would inform reproductive decision-making and/or risk assessment and management. Variant(s) of uncertain significance (VUS) detected: BRCA2 dup exons 1-3. A VUS is a genetic variant for which insufficient data exists in order to determine if it is associated with disease (deleterious mutation) or is a normal genetic variant which can occur in the population without disease (benign polymorphism). Please see Oculus VR message for further discussion. CHRISTIE Magdaleno Licensed, Certified Genetic Counselor [facility] 05-25-2023 Miscellaneous Notes The following approved medication requests have been transmitted electronically. Requested Prescriptions Signed Prescriptions Disp Refills letrozole (FEMARA) 2.5 mg tablet 10 tablet 0 Sig: Take 2 tablets by mouth once daily. Take day 3-7 of her cycle Authorizing Provider: ORTEGA MORRISSEY APRN.CNM May 25, 2023 11:17 AM Called the patient she verified her name and date of Patient needs refill of letrozole Has done 3 cycles of letrozole Randee Myers RN May 25, 2023 10:06 AM Joaor in [place] is pharmacy. Please follow up with patient. documented in this encounter [facility] 05-17-2023 Miscellaneous Notes Spoke to Thao again, confirmed name/. Reviewed information regarding genetic testing. After our discussion, patient provided informed consent for SELF PAY Integrated BRACAnalysis with [facility] and SDHA single site mutation analysis. Order placed today. Tena said the following about the SDHA variant: This SDHA variant would be outside of our reportable range, as we unfortunately do not offer CNV analysis of SDHA at this time. Please let me know if you have any additional questions. Discussed with patient they they cannot detect the familial mutation. Reviewed testing at [facility] as the best option, since we know that they detected this particular mutation in her mother. The patient was offered SDHA single site mutation analysis through [facility] or self pay Integrated BRACAnalysis with [facility] and SDHA single site mutation analysis through [facility]. After considering the risks, benefits, and limitations, the patient chose to pursue and provided informed consent for the following testing: SELF PAY Integrated BRACAnalysis with [facility] and SDHA single site mutation analysis through [facility]. The myRisk panel includes APC, MICHAEL, AXIN2, BAP1, BARD1, BMPR1A, BRCA1, BRCA2, BRIP1, CDH1, CDK4, CDKN2A, CHEK2, CTNNA1, EGFR, EPCAM, FH, FLCN, GREM1, HOXB13, MEN1, MET, MITF, MLH1, MSH2, MSH3, MSH6, MUTYH, NTHL1, PALB2, PMS2, POLD1, POLE, PTEN, RAD51C, RAD51D, RET, SDHA, SDHB, SDHC, SDHD, SMAD4, STK11, TERT, TP53, TSC1, TSC2, and VHL MyRisk looks at genes related to inherited breast, ovarian, pancreatic, prostate, colon, uterine, kidney, lung, endocrine, and stomach cancer, as well as inherited colon polyp and melanoma syndromes. We discussed that an NGS panel can rarely result in an unexpected finding which may or may not be related to the presenting phenotype. We discussed that [facility] may contact the patient by text or phone call regarding billing. The patient should watch for this communication and respond promptly. The patient should contact [facility] directly with any billing questions (ph. [phone]). Elsa Puentes MS, [facility] Licensed, Certified Genetic Counselor Called patient to discuss her mother's genetic testing results. The patient was offered SDHA single gene testing or SDHA gene testing with reflex to Multi-Cancer panel through [facility]. After considering the risks, benefits, and limitations, the patient chose to pursue and provided informed consent for the following testing: SDHA gene analysis with reflex to Multi-Cancer panel through [facility]. The Multi-Cancer Panel includes AIP, ALK, APC, MICHAEL, AXIN2, BAP1, BARD1, BLM, BMPR1A, BRCA1, BRCA2, BRIP1, CDC73, CDH1, CDK4, CDKN1B, CDKN2A, CHEK2, CTNNA1, DICER1, EGFR, EPCAM, FH, FLCN, GREM1, HOXB13, KIT, LZTR1, MAX, MBD4, MEN1, MET, MITF, MLH1, MSH2, MSH3, MSH6, MUTYH, NF1, NF2, NTHL1, PALB2, PDGFRA, PMS2, POLD1, POLE, POT1, MHRHR8S, PTCH1, PTEN, RAD51C, RAD51D, RB1, RET, SDHA, SDHAF2, SDHB, SDHC, SDHD, SMAD4, SMARCA4, SMARCB1, SMARCE1, STK11, SUFU, LUVJ904, TP53, TSC1, TSC2, and VHL The Multi-Cancer panel looks at genes associated with cancers of the breast, gynecologic tract (ovarian, uterine/endometrial), gastrointestinal system (colorectal, gastric, pancreatic), endocrine glands (thyroid, parathyroid, pituitary, adrenal glands), genitourinary tract (renal/urinary tract, prostate), skin (melanoma, basal cell carcinoma), and brain/nervous system. AM CHECKING WITH [facility] FIRST ABOUT VARIANT BEFORE PROCEEDING, WILL CONTACT PATIENT WHEN READY TO MOVE FORWARD. Elsa Puentes MS, [facility] Licensed, Certified Genetic Counselor documented in this encounter [facility] 04-21-2023 Note HNO ID: [id number] Author: ELSA PUENTES LGC Service: ? Author Type: Genetic Counselor Type: Progress Notes Filed: 05/18/2023 16:44 Note Text: [facility] Consultation Note Genetic Counselor: Elsa Puentes MS, GREG Patient: Lissa Rivas Patient Name and confirmed at initiation of visit. The patient provided consent for a virtual visit by [employer]. I have communicated my name and active licensure. The patient's identity and physical location were verified at the time of this visit. Either the patient or their legal direct marketing representative has been informed of the risks and benefits of -- and alternatives to -- treatment through a remote evaluation and consents to proceed with the evaluation remotely. HIGH LEVEL SUMMARY: The patient's family history is potentially suggestive of a hereditary cancer syndrome. However, patient's mother has had previous genetic testing. Patient reports that her testing was positive for a hereditary cancer syndrome. Discussed the next step of getting a copy of mom's results before proceeding any further. Patient will send me her mother's results, and I will follow up afterwards. IDENTIFICATION AND CHIEF COMPLAINT: Dr. Fede Hairston requested a consultation for genetic counseling and risk assessment for Lissa Rivas, a 28 year old female, for discussion of her family history of cancer. She presents to clinic today to discuss the possibility of a genetic predisposition to cancer, and to further clarify her risks, as well as her family members' risks for cancer. HISTORY OF PRESENT ILLNESS: Lissa Rivas is a 28 year old female with no personal history of cancer. PAST MEDICAL HISTORY Diagnosis Date Anxiety Asthma Chlamydia age 16 Chronic fatigue syndrome Generalized anxiety disorder Genital herpes simplex 2020 HSV, symptoms gentially GERD (gastroesophageal reflux disease) Menorrhagia Obesity due to excess calories PCOS (polycystic ovarian syndrome) Seasonal allergies PAST SURGICAL HISTORY Procedure Laterality Date EYE SURGERY HX 03/2020 [facility]ER SURVEILLANCE HISTORY: Mammograms: No Breast MRI's: No Breast Biopsies: No Colonoscopy: No EGD: No GI Polyps: N/A Dermatology: Yes / as needed REPRODUCTIVE HISTORY AND PERSONAL RISK ASSESSMENT FACTORS: Weight: Last 1 Encounter Wt Readings: Date: Wt: 01/04/2023 105.7 kg (233 lb) Height: Last 1 Encounter Ht Readings: Date: Ht: 01/04/2023 160 cm (5' 3 ) Menarche was at age 12-13 Premenopausal Uterus Intact: Yes Ovaries Intact: Yes Took progesterone temporarily to get periods started, taking letrozole. SOCIAL HISTORY: Social History Tobacco Use Smoking status: Never Smokeless tobacco: Never Substance Use Topics Alcohol use: Yes Comment: rare, socially Drug use: Never FAMILY HISTORY: We obtained a detailed, 4-generation family history. Significant diagnoses are listed below: FAMILY HISTORY Problem Relation Age of Onset Hypertension Mother Asthma Father Diabetes Father Heart disease Father Stroke Father Kidney Disease Father Arrhythmia Father Atrial fibrillation COPD Father Hypertension Father Hyperlipidemia Father Arrhythmia Half-sister Atrial fibrillation Breast Cancer Maternal Grandmother 40 - 49 Arthritis Paternal Grandmother Stroke Paternal Grandmother COPD Paternal Grandmother Arrhythmia Paternal Grandmother Atrial fibrillation Heart disease Paternal Grandmother Diabetes Paternal Grandmother Prostate Cancer Maternal Uncle 40 - 49 metastatic Lung Cancer Maternal Uncle 45 - 49 Breast Cancer Maternal great-grandmother Breast Cancer Maternal Aunt 45 The patient's maternal ancestors are of , descent and paternal ancestors are of [place] descent. There is no Ashkenazi Jew ancestry. There is no known consanguinity. A copy of the patient's pedigree will be available under the scanned documents tab following today's visit. GENETIC COUNSELING RISK ASSESSMENT, DISCUSSION, AND SUGGESTED FOLLOW UP: We reviewed the natural history and genetic etiology of sporadic, familial and hereditary cancer syndromes. The patient's family history is potentially suggestive of: a hereditary cancer syndrome. However, patient's mother has had previous genetic testing. Patient reports that her testing was positive for a hereditary cancer syndrome. However, she did not have further information at this time. Based on this assessment of the patient's family and personal history, genetic testing is recommended. However, cannot specifically advise on what testing is indicated wihtout a copy of her mother's genetic testing results. Patient plans to send a copy of those results to me before proceeding further. Will discuss testing again at that point. We also revi (more content not included)... [facility] 04-21-2023 History of Present illness Narrative Images from the original note were not included. [facility] Consultation Note Genetic Counselor: Elsa Puentes, , [facility] Patient: Lissa Rivas Patient Name and confirmed at initiation of visit. The patient provided consent for a virtual visit by [employer]. I have communicated my name and active licensure. The patient's identity and physical location were verified at the time of this visit. Either the patient or their legal direct marketing representative has been informed of the risks and benefits of -- and alternatives to -- treatment through a remote evaluation and consents to proceed with the evaluation remotely. HIGH LEVEL SUMMARY: The patient's family history is potentially suggestive of a hereditary cancer syndrome. However, patient's mother has had previous genetic testing. Patient reports that her testing was positive for a hereditary cancer syndrome. Discussed the next step of getting a copy of mom's results before proceeding any further. Patient will send me her mother's results, and I will follow up afterwards. IDENTIFICATION AND CHIEF COMPLAINT: Dr. Fede Hairston requested a consultation for genetic counseling and risk assessment for Lissa Rivas, a 28 year old female, for discussion of her family history of cancer. She presents to clinic today to discuss the possibility of a genetic predisposition to cancer, and to further clarify her risks, as well as her family members' risks for cancer. HISTORY OF PRESENT ILLNESS: Lissa Rivas is a 28 year old female with no personal history of cancer. PAST MEDICAL HISTORY Diagnosis Date Anxiety Asthma Chlamydia age 16 Chronic fatigue syndrome Generalized anxiety disorder Genital herpes simplex 2020 HSV, symptoms gentially GERD (gastroesophageal reflux disease) Menorrhagia Obesity due to excess calories PCOS (polycystic ovarian syndrome) Seasonal allergies PAST SURGICAL HISTORY Procedure Laterality Date EYE SURGERY HX 03/2020 [facility] CANCER SURVEILLANCE HISTORY: Mammograms: No Breast MRI's: No Breast Biopsies: No Colonoscopy: No EGD: No GI Polyps: N/A Dermatology: Yes / as needed REPRODUCTIVE HISTORY AND PERSONAL RISK ASSESSMENT FACTORS: Weight: Last 1 Encounter Wt Readings: Date: Wt: 01/04/2023 105.7 kg (233 lb) Height: Last 1 Encounter Ht Readings: Date: Ht: 01/04/2023 160 cm (5' 3 ) Menarche was at age 12-13 Premenopausal Uterus Intact: Yes Ovaries Intact: Yes Took progesterone temporarily to get periods started, taking letrozole. SOCIAL HISTORY: Social History Tobacco Use Smoking status: Never Smokeless tobacco: Never Substance Use Topics Alcohol use: Yes Comment: rare, socially Drug use: Never FAMILY HISTORY: We obtained a detailed, 4-generation family history. Significant diagnoses are listed below: FAMILY HISTORY Problem Relation Age of Onset Hypertension Mother Asthma Father Diabetes Father Heart disease Father Stroke Father Kidney Disease Father Arrhythmia Father Atrial fibrillation COPD Father Hypertension Father Hyperlipidemia Father Arrhythmia Half-sister Atrial fibrillation Breast Cancer Maternal Grandmother 40 - 49 Arthritis Paternal Grandmother Stroke Paternal Grandmother COPD Paternal Grandmother Arrhythmia Paternal Grandmother Atrial fibrillation Heart disease Paternal Grandmother Diabetes Paternal Grandmother Prostate Cancer Maternal Uncle 40 - 49 metastatic Lung Cancer Maternal Uncle 45 - 49 Breast Cancer Maternal great-grandmother Breast Cancer Maternal Aunt 45 The patient's maternal ancestors are of , descent and paternal ancestors are of [place] descent. There is no Ashkenazi Jew ancestry. There is no known consanguinity. A copy of the patient's pedigree will be available under the scanned documents tab following today's visit. GENETIC COUNSELING RISK ASSESSMENT, DISCUSSION, AND SUGGESTED FOLLOW UP: We reviewed the natural history and genetic etiology of sporadic, familial and hereditary cancer syndromes. The patient's family history is potentially suggestive of: a hereditary cancer syndrome. However, patient's mother has had previous genetic testing. Patient reports that her testing was positive for a hereditary cancer syndrome. However, she did not have further information at this time. Based on this assessment of the patient's family and personal history, genetic testing is recommended. However, cannot specifically advise on what testing is indicated wihtout a copy of her mother's genetic testing results. Patient plans to send a copy of those results to me before proceeding further. Will discuss testing again at that point. We also reviewed the Genetic Information and Nondiscrimination Act. This is a law in place with protections against health insurance and employment discrimination, based on genetic testing results. We discussed that there are limitations to this law. One limitation is that it does not extend to insurances such as life insurance, prison care, or disability. The patient was seen for a total of 30 minutes, greater than 50% of which was spent [id number] counseling. This plan is being carried out under the oversight of Dr. Annamarie Weiss. This note will also be sent to the referring provider via the electronic medical record. Elsa Puentes MS, [facility] CC: Dr. Fede Weiss documented in this encounter [facility] 04-18-2023 Miscellaneous Notes Lissa Rivas is a 28 year old female with PCOS, anovulatory infertility. Plan: - she will get vaccinated for rubella at the local pharmacy. - Titrate dose of letrozole accordingly. - if not after 2-3 months of appropriate dose of letrozole, I would recommend she has HSG and her has SA. All questions are answered. Kim Khan MD documented in this encounter [facility] 04-07-2023 Consult note Formatting of th is note is different from the original. Date of Consult: 04/07/2023 Lissa Rivas is a 28 year old female presenting with the following history: HISTORY OF PRESENT ILLNESS: Lissa Rivas is a 28 year old female with 04/07/2023 Pt is here for follow up. 1. PCOS - not respond to letrozole 2.5 mg. Dosed increase to 5 mg recently and she will get the prog done again on CD 21. 2. Elevated LFT - work up are all negative. Her PCP will repeat her LFT again in a few months. 3. Rubella non-immune. Patient aware. She will get the vaccine at the local pharmacy. She aware that she should not TTC for 30 days after taking the injection. 4. She has an appointment with cancer genetic team soon. 5 MyRiad - test neg for all mutations. Prior note 01/04/2023: TTC January 2022. Has not used ocp since teenager. Was seen [facility] for PCOS and placed on metformin. She self discontinue metformin last year and period never return. Using condoms prior Hx of PCOS diagnosed in 2019 through ultrasound and c/o abnormal hair growth, cycles usually q 3 months but has not had a cycle since Dec 2021 Has been spotting for 40+ days Using elle to track cycles, tried OPK for a few months but never has gotten a positive Treated for Chlamydia at age 16 healthy, non-smoker; no established pregnancies. Irregular period, hirsutism, ultrasound showed PCO appearing ovaries. Component Latest Ref Rng & Units 01/04/2023 Protein, Total 6.3 - 8.0 g/dL 7.0 Albumin 3.9 - 4.9 g/dL 4.5 Calcium 8.5 - 10.2 mg/dL 9.2 Bilirubin, Total 0.2 - 1.3 mg/dL 0.2 Alkaline Phosphatase 34 - 123 U/L 67 AST 13 - 35 U/L 27 ALT 7 - 38 U/L 49 (H) Glucose 74 - 99 mg/dL 106 (H) BUN 7 - 21 mg/dL 9 Creatinine 0.58 - 0.96 mg/dL 0.79 Sodium 136 - 144 mmol/L 142 Potassium 3.7 - 5.1 mmol/L 4.3 Chloride 97 - 105 mmol/L 106 (H) CO2 22 - 30 mmol/L 24 Anion Gap 9 - 18 mmol/L 12 eGFR >=60 mL/min/1.73m 105 WBC 3.70 - 11.00 k/uL 6.51 RBC 3.90 - 5.20 m/uL 4.22 Hemoglobin 11.5 - 15.5 g/dL 13.5 Hematocrit 36.0 - 46.0 % 40.0 MCV 80.0 - 100.0 fL 94.8 MCH 26.0 - 34.0 pg 32.0 MCHC 30.5 - 36.0 g/dL 33.8 RDW-CV 11.5 - 15.0 % 12.3 Platelet Count 150 - 400 k/uL 261 MPV 9.0 - 12.7 fL 10.4 Absolute nRBC <0.01 k/uL <0.01 ABO A Rh(D) Negative Antibody Screen Negative Type+Scr Expiration 01/07/2023 23:59 Historical Ab Scr Status NEGATIVE Hemoglobin A1C 4.3 - 5.6 % 5.6 Estimated Average Glucose mg/dL 114 Anti Mullerian Hormone 0.89 - 9.85 ng/mL 10.91 (H) Vitamin D 25 Hydroxy 31.0 - 80.0 ng/mL 24.2 (L) TSH 0.270 - 4.200 mIU/L 3.430 Rubella IgG, Qual Positive Negative (A) Varicella Zoster IgG, Qual Positive Positive hCG Quantitative, Blood <5.0 mIU/mL <0.6 Estradiol 17B 8 - 37 pg/mL 47 (H) Progesterone See comment ng/mL 0.3 Prolactin 4.5 - 26.8 ng/mL 8.8 Obstetric History T0 L0 SAB0 IAB0 Ectopic0 Multiple0 Live Births0 Fertility Evaluations and Treatments: Eval Checklist Results Date Comments HSG Hysteroscopy Laparoscopy OPK (Ovulation Predictor Kit) Ovarian [place] [facility] 10.91 High 01/04/2023 Saline Ultrasound Semen Analysis Ultrasound Abnormal polycystic ovaries, otherwise normal 02/08/2023 Other (See comments) MENSTRUAL HISTORY: Menarche Age: 12 Length of Cycle: Irregular Days: Menstrual Flow: Menstrual Symptoms: Patient's last menstrual period was 03/29/2023 (exact date). PAST MEDICAL HISTORY Diagnosis Date Anxiety Asthma Chlamydia age 16 Chronic fatigue syndrome Generalized anxiety disorder Genital herpes simplex 2020 HSV, symptoms gentially GERD (gastroesophageal reflux disease) Menorrhagia Obesity due to excess calories PCOS (polycystic ovarian syndrome) Seasonal allergies PAST SURGICAL HISTORY Procedure Laterality Date EYE SURGERY HX 03/2020 [facility] FAMILY HISTORY Problem Relation Age of Onset Hypertension Mother Asthma Father Diabetes Father Heart disease Father Stroke Father Kidney Disease Father Arrhythmia Father Atrial fibrillation COPD Father Hypertension Father Hyperlipidemia Father Arrhythmia Sister Atrial fibrillation Breast Cancer Maternal Grandmother Arthritis Paternal Grandmother Stroke Paternal Grandmother COPD Paternal Grandmother Arrhythmia Paternal Grandmother Atrial fibrillation Heart disease Paternal Grandmother Diabetes Paternal Grandmother Prostate Cancer Maternal Uncle Lung Cancer Maternal Uncle ETHNICITY: White Assessment and Plan Lissa Rivas is a 28 year old female with PCOS, anovulatory infertility. Plan: - she will get vaccinated for rubella at the local pharmacy. - Titrate dose of letrozole accordingly. - if not after 2-3 months of appropriate dose of letrozole, I would recommend she has HSG and her has SA. All questions are answered. Kim Khan MD I spent a total of 30 minutes on the date of the service which included preparing to see the patient, [id number] patient care, counseling and educating the patient/family/caregiver, and ordering medications, tests, or procedures. I have communicated my name and active licensure. The patient's identity and physical location were verified at the time of this visit. Either the patient or their legal direct marketing representative has been informed of the risks and benefits of -- and alternatives to -- treatment through a remote evaluation and consents to proceed with the evaluation remotely. Kim Khan MD documented in this encounter [facility] 02-08-2023 History of Present illness Narrative Patient is here for ultrasound. Please see image section in Epic for results. Kim Khan MD documented in this encounter [facility] 02-04-2023 Miscellaneous Notes 21 day progesterone level ordered. Ortega Morrissey APRN.CNP February 04, 2023 2:12 PM Pt states she has started her letrozole today documented in this encounter [facility] 06-26-2022 Evaluation note Encounter Date Diagnosis Assessment Notes May, Puncture wound of finger of left hand, initial encounter (ICD-10 - S61.239A) Keep the wound clean and dry. Apply antibiotic ointment to the wound daily. No washing dishes until the wound is completely healed. If you have to wash dishes wear a glove. You may get the wound wet in the shower. Take Tylenol or Motrin for aches pains or fevers. Follow-up with your family physician for any further concerns May, Other Puncture wound material was printed [facility] Other 01-01-2021 History general Narrative - Reported* Type Description Date Medical History asthma Surgical History laser eye surgery, bilateral Hospitalization History Rash, age 5 [facility] Other Evaluation note* Diagnosis Encounter for fertility testing- Primary Fertility testing [facility] Diagnosis Secondary amenorrhea Absence of menstruation PCOS (polycystic ovarian syndrome) Polycystic ovaries [facility] Diagnosis PCOS (polycystic ovarian syndrome)- Primary Polycystic ovaries Fertility testing [facility] Diagnosis Family history of cancer- Primary Family history of unspecified malignant neoplasm Family history of gene mutation [facility] Diagnosis Family history of breast cancer- Primary Family history of malignant neoplasm of breast Family history of prostate cancer Family history of malignant neoplasm of prostate [facility] Diagnosis Procreative management- Primary Unspecified procreative management [facility] Diagnosis Monoallelic mutation of SDHA gene- Primary Localized enlarged lymph nodes Enlargement of lymph nodes Intra-abdominal and pelvic swelling, mass and lump, unspecified site [facility] Diagnosis Encounter for fertility testing- Primary Fertility testing Pre-procedure lab exam Pre-procedural laboratory examination [facility] Diagnosis Fertility testing [facility] Diagnosis Monoallelic mutation of SDHA gene- Primary Obesity, Class III, BMI 40-49.9 (morbid obesity) (HCC) Morbid obesity [facility]* Diagnosis Irregular menstrual cycle- Primary PCOS (polycystic ovarian syndrome) Polycystic ovaries [facility] Diagnosis Monoallelic mutation of SDHA gene- Primary [facility] Diagnosis Secondary amenorrhea- Primary Absence of menstruation [facility] Diagnosis Secondary amenorrhea- Primary Absence of menstruation [facility] Diagnosis Screen for sexually transmitted diseases- Primary Screening examination for venereal disease Secondary amenorrhea Absence of menstruation Female infertility Female infertility of unspecified origin [facility] Diagnosis Procreation management investigation and testing- Primary Other investigation and testing for procreative management documented in this encounter [facility] note* Diagnosis Treatment plan provided- Primary documented in this encounter [facility] note* Diagnosis Female infertility Female infertility of unspecified origin documented in this encounter [facility] note* Diagnosis Encounter for artificial insemination- Primary Artificial insemination documented in this encounter [facility] note* Diagnosis Procreation management investigation and testing- Primary Other investigation and testing for procreative management documented in this encounter [facility] note* Diagnosis Procreation management investigation and testing- Primary Other investigation and testing for procreative management Female infertility Female infertility of unspecified origin documented in this encounter [facility] note* Diagnosis Procreation management investigation and testing- Primary Other investigation and testing for procreative management documented in this encounter [facility] note* Diagnosis Procreation management investigation and testing- Primary Other investigation and testing for procreative management documented in this encounter [facility] note* Diagnosis Female infertility Female infertility of unspecified origin documented in this encounter [facility] note* Diagnosis Procreation management investigation and testing- Primary Other investigation and testing for procreative management documented in this encounter [facility] note* Diagnosis Female infertility- Primary Female infertility of unspecified origin documented in this encounter [facility] note* Diagnosis Female infertility- Primary Female infertility of unspecified origin documented in this encounter [facility] note* Diagnosis Encounter for artificial insemination- Primary Artificial insemination documented in this encounter [facility] note* Diagnosis Procreation management investigation and testing- Primary Other investigation and testing for procreative management documented in this encounter [facility] note* Diagnosis Female infertility- Primary Female infertility of unspecified origin documented in this encounter [facility] note* Diagnosis Encounter for gynecological examination without abnormal finding- Primary Screening for malignant neoplasm of cervix Screening for malignant neoplasm of the cervix Desire for BV (bacterial vaginosis) Unspecified vaginitis and vulvovaginitis documented in this encounter [facility] note* Diagnosis Procreation management investigation and testing- Primary Other investigation and testing for procreative management documented in this encounter [facility] note* Diagnosis Female infertility Female infertility of unspecified origin [facility] Female infertility- Primary Female infertility of unspecified origin [facility] Diagnosis Otalgia of both ears- Primary Temporomandibular joint disorder Unspecified temporomandibular joint disorders Chronic allergic rhinitis Postnasal drip documented in this encounter [facility] Work Phone: Evaluation note* Diagnosis Supervision of with history of infertility, first trimester- Primary examination or test, unconfirmed [facility]* Diagnosis Encounter for test, result positive- Primary examination or test, positive result [facility] Diagnosis Supervision of with history of infertility, first trimester- Primary [facility] Diagnosis PCOS (polycystic ovarian syndrome)- Primary Polycystic ovaries [facility] Diagnosis Encounter for supervision of normal first in first trimester Encounter for drug screening [facility] Diagnosis Supervision of with history of infertility, first trimester [facility] Diagnosis Procreation management investigation and testing- Primary Other investigation and testing for procreative management [facility]* Diagnosis Missed menses , unspecified gestational age Encounter for supervision of normal first in first trimester 9 weeks gestation of [facility] Diagnosis First trimester state, incidental 13 weeks gestation of Urinary tract infection without hematuria, site unspecified [facility] Diagnosis Onychomycosis- Primary Dermatophytosis of nail Onychodystrophy Other specified disease of nail Xerosis cutis Other specified disease of sebaceous glands Fissure in skin of both feet documented [facility]* Diagnosis Second trimester state, incidental 14 weeks gestation of Spotting in Spotting complicating , unspecified as to episode of care or not applicable [facility] Diagnostic Procedure Only (Routine) - Pending Review Specialty Diagnoses / Procedures Referred By Blair beltran Referred To Contact XR IMAGING Diagnoses Fertility testing Procedures XR HYSTEROSALPINGOGRAM CATH & SALINE/CONTRAST SONOHYSTER/HYSTEROSALPI William Hairstonierut, MD [address] [place] [address] [facility] [address] Referral ID Status Reason Start Date Expiration Date Visits Requested Visits Authorized [id number] Pending Review Auto-Generat ed Referral 04/18/2023 05/17/2024 1 1 [facility] (narrative)* Diagnostic Procedure Only (Routine) - Pending Review Specialty Diagnoses / Procedures Referred By Contac t Referred To Contact [facility] Diagnoses Female infertility Procedures FOLLICULAR US [facility] US PELVIC NONOBSTETRIC IMAGE CRISSTLynnette LIMITED/F/U Ortega Morrissey APRN.CNM [id number] [place] [address] [facility] [address] [place], [place] [id number] Referral ID Status Reason Start Date Expiration Date Visits Requested Visits Authorized [id number] Pending Review Auto-Generat ed Referral 09/10/2023 09/09/2024 1 1 [facility] for referral (narrative)* Diagnostic Procedure Only (Routine) - New Request Specialty Diagnoses / Procedures Referred By Contac t Referred To Contact [facility] Diagnoses Female infertility Procedures FOLLICULAR US I US PELVIC NONOBSTETRIC IMAGE JOE HUFF/F/U Ortega Morrissey APRN.VENEER JOINTER HELPER [id number] [place] [address] [facility] [address] [place] [address] Referral ID Status Reason Start Date Expiration Date Visits Requested Visits Authorized [id number] New Request Auto-Generat ed Referral 12/13/2023 12/12/2024 1 1 [facility] for referral (narrative)* Diagnostic Procedure Only (Routine) - New Request Specialty Diagnoses / Procedures Referred By Contac t Referred To Contact [facility] Diagnoses Female infertility Procedures FOLLICULAR US WHI US PELVIC NONOBSTETRIC IMAGE DCMTN LIMITED/F/U Ortega Morrissey APRN.VENEER JOINTER HELPER [address] [facility] [place] [address] [place] [id number] Referral ID Status Reason Start Date Expiration Date Visits Requested Visits Authorized [id number] New Request Auto-Generat ed Referral 4 02/14/2025 1 1 [facility] for referral (narrative)* Diagnostic Procedure Only (Routine) - Authorized Specialty Diagnoses / Procedures Referred By Contac t Referred To Contact [facility] Diagnoses Supervision of with history of infertility, first trimester Procedures OBSTETRIC ULTRASOUND WHI US PREG UTERUS AFTER 1ST TRIMEST GESTATION Ortega Morrissey APRN.VENEER JOINTER HELPER [address] [facility] [place] [address] [address] [place] [address] Referral ID Status Reason Start Date Expiration Date Visits Requested Visits Authorized [id number] Authorized Auto-Generat ed Referral 4 03/17/2025 1 1 [facility] Center for visit Narrative* Diagnostic Procedure Only (Routine) - Closed Specialty Diagnoses / Procedures Referred By Contac t Referred To Contact [facility] Diagnoses Supervision of with history of infertility, first trimester Procedures OBSTETRIC ULTRASOUND WHI US PREG UTERUS AFTER 1ST TRIMEST GESTATION Ortega Morrissey APRN.VENEER JOINTER HELPER [id number] [facility] [place] [address] [facility] [address] [place] [id number] Referral ID Status Reason Start Date Expiration Date V isits Requested Visits Authorized [id number] Closed Auto-Generate d Referral 03/17/2024 03/17/2025 1 1 [facility] Summary Purpose Family History No Family History Records FoundNo Family History Records FoundNo Family History Records FoundNo Family History Records FoundNo Family History Records FoundNo Family History Records FoundNo Family History Records Found Advance Directives No Advanced Directives Records FoundNo Advanced Directives Records FoundNo Advanced Directives Records FoundNo Advanced Directives Records FoundNo Advanced Directives Records FoundNo Advanced Directives Records FoundNo Advanced Directives Records Found Reason for Referral Specialty Diagnoses / Procedures Referred By Contac t Referred To Contact [facility] Diagnoses Female infertility Procedures FOLLICULAR US WHI US PELVIC NONOBSTETRIC IMAGE DCMTN LIMITED/F/U Ortega Morrissey APRN.VENEER JOINTER HELPER [address] [facility] [place] [address] [facility] [address] [place] [address] Referral ID Status Reason Start Date Expiration Date Visits Requested Visits Authorized [id number] Authorized Benefit Check 11/15/2023 03/28/2024 1 1 Specialty Diagnoses / Procedures Referred By Contac t Referred To Contact Ortega Morrissey, DEBBIE.VENEER JOINTER HELPER [address] [facility] [place] [address] Referral ID Status Reason Start Date Expiration Date Visits Re quested Visits Authorized [id number] Closed 1 1 Specialty Diagnoses / Procedures Referred By Contac t Referred To Contact Diagnoses Obesity, Class III, BMI 40-49.9 (morbid obesity) (HCC) Procedures ENDOCRINE MEDICAL WEIGHT MANAGEMENT OFFICE/OUTPATIENT [facility] 60 MINUTES Mirta Gallagher MD [address] [place] [address] Referral ID Status Reason Start Date Expiration Date Visits Requested Visits Authorized [id number] Authorized PCP Requested Referral 08/17/2023 08/16/2024 1 1 Specialty Diagnoses / Procedures Referred By Contac t Referred To Contact CT IMAGING Diagnoses Intra-abdominal and pelvic swelling, mass and lump, unspecified site Procedures CT ABDOMEN W IVCON CT ABDOMEN W/CONTRAST Мария Laboy MD [address] [place] [address] Ct Imaging [facility] Referral ID Status Reason Start Date Expiration Date Visits Requested Visits Authorized [id number] Pending Review Auto-Generat ed Referral 06/16/2023 07/15/2024 1 1 Specialty Diagnoses / Procedures Referred By Contac t Referred To Contact CT IMAGING Diagnoses Localized enlarged lymph nodes Procedures CT CHEST W IVCON DIAGNOSTIC COMPUTED TOMOGRAPHY THORAX W/CONTRAST Мария Laboy MD [address] [place] [address] Ct Imaging [place] [address] Referral ID Status Reason Start Date Expiration Date Visits Requested Visits Authorized [id number] Pending Review Auto-Generat ed Referral 06/16/2023 07/15/2024 1 1 Specialty Diagnoses / Procedures Referred By Contac t Referred To Contact CT IMAGING Diagnoses Localized enlarged lymph nodes Procedures CT NECK SOFT TISSUE W IVCON CT SOFT TISSUE NECK W/CONTRAST MATERIAL Мария Laboy MD [address] [place] [address] Ct Imaging [place] [address] Referral ID Status Reason Start Date Expiration Date Visits Requested Visits Authorized [id number] Pending Review Auto-Generat ed Referral 06/16/2023 07/15/2024 1 1 Additional Source Comments INFORMATION SOURCE (unrecogn ized section and content) DATE CREATED AUTHOR 12/06/2019 [facility] DATE CREATED AUTHOR AUTHOR'S ORGANIZ ATION 07/24/2023 [facility] DATE CREATED AUTHOR AUTHOR'S ORGANIZ ATION 02/25/2024 [facility] DATE CREATED AUTHOR AUTHOR'S ORGANIZ ATION 03/11/2024 [facility] DATE CREATED AUTHOR AUTHOR'S ORGANIZ ATION 03/11/2024 [facility] DATE CREATED AUTHOR AUTHOR'S ORGANIZ ATION 04/09/2024 [facility] DATE CREATED AUTHOR AUTHOR'S ORGANIZ ATION 05/25/2024 [facility] dical Specialists EPIC REASON FOR VISIT (unrecogniz ed section and content) Reason Comments Infertility Specialty Diagnoses / Procedures Referred By Contac t Referred To Contact [facility] Diagnoses Female infertility Procedures FOLLICULAR US WHI US PELVIC NONOBSTETRIC IMAGE DCMTN LIMITED/F/U Ortega Morrissey, VISUAL AID EXPERT.VENEER JOINTER HELPER [address] [facility] [place] [address] [address] Referral ID Status Reason Start Date Expiration Date V isits Requested Visits Authorized [id number] Closed Benefit Check 02/16/2024 03/28/2024 1 1 Reason Comments started letrozole Specialty Diagnoses / Procedures Referred By Contac t Referred To Contact [facility] Diagnoses Secondary amenorrhea PCOS (polycystic ovarian syndrome) Procedures PELVIC US WHI US PELVIC NONOBSTETRIC REAL-TIME IMAGE COMPLETE Fede Hairston MD [address] [place] [address] [address] Referral ID Status Reason Start Date Expiration Date V isits Requested Visits Authorized [id number] Closed Benefit Check 01/21/2023 03/28/2023 1 1 Reason Comments Follow Up Reason Comments Follow Up Reason Comments Appointment Reason Comments refill letrozol/cycle to start in next w [place] Reason Comments Tie Buyer - Other Hereditary Para ganglioma-Pheochromocytoma Syndrome clinic Reason Comments Results Genetic Reason Comments Nurse Visit Specialty Diagnoses / Procedures Referred By Contac t Referred To Contact XR IMAGING Diagnoses Fertility testing Procedures XR HYSTEROSALPINGOGRAM CATH & SALINE/CONTRAST SONOHYSTER/HYSTEROSALPI HYSTEROSALPINGOGRAPHY RS&I URINE TEST Fede Hairston MD [address] [place] [address] Xr Imaging [facility] Referral ID Status Reason Start Date Expiration Date V isits Requested Visits Authorized [id number] Closed Benefit Check 07/19/2023 03/28/2024 1 1 Reason Comments paraganglioma Reason Comments New Patient SHDA ref by Fina Tate Reason Comments lmp 07/23 no cycle since then Reason Comments Patient Question Reason Comments Treatment Planning Reason Comments Ortega lmp today/re us day 11-13 for iui Reason Comments trigger shot Specialty Diagnoses / Procedures Referred By Contac t Referred To Contact [facility] Diagnoses Female infertility Procedures FOLLICULAR US WHI US PELVIC NONOBSTETRIC IMAGE DCMTN LIMITED/F/U Ortega Morrissey, VISUAL AID EXPERT.VENEER JOINTER HELPER [address] [facility] [place] [address] [facility] [address] [place] [address] Referral ID Status Reason Start Date Expiration Date Visits Re quested Visits Authorized [id number] Closed 09/14/2023 03/28/2024 1 1 Specialty Diagnoses / Procedures Referred By Blair t Referred To Contact [facility] Diagnoses Encounter for other procreative management Procedures ARTIFIC INSEMINATION INTRAUTERIN Ortega Morrissey, VISUAL AID EXPERT.VENEER JOINTER HELPER [address] [facility] [place] [address] Ortega Morrissey, VISUAL AID EXPERT.VENEER JOINTER HELPER [address] [facility] [place] [address] Referral ID Status Reason Start Date Expiration Date V isits Requested Visits Authorized [id number] Closed Benefit Check 09/17/2023 03/16/2024 1 1 Reason Comments iui 10/25 , cd 1 11/11 Reason Comments Treatment Planning Referral ID Status Reason Start Date Expiration Date V isits Requested Visits Authorized [id number] Closed Benefit Check 11/15/2023 03/28/2024 1 1 Specialty Diagnoses / Procedures Referred By Blair t Referred To Contact [facility] Diagnoses Encounter for other procreative management Procedures ARTIFIC INSEMINATION INTRAUTERIN Deshawn Riojas MD [address] [place] [address] [facility] [place] [address] [place] [address] Referral ID Status Reason Start Date Expiration Date V isits Requested Visits Authorized [id number] Closed Financial Clearance Required - Self Pay 11/27/2023 02/25/2024 1 1 Reason Comments LMP 12/12/23/ set up monitored cycle Patient Update Referral ID Status Reason Start Date Expiration Date V isits Requested Visits Authorized [id number] Closed Benefit Check 12/15/2023 03/28/2024 1 1 Reason Comments IUI Specialty Diagnoses / Procedures Referred By Blair t Referred To Contact [facility] Diagnoses Encounter for other procreative management Female infertility, unspecified Procedures ARTIFIC INSEMINATION INTRAUTERIN Self Whi Gayathri [facility] [address] [address] [place] [address] Referral ID Status Reason Start Date Expiration Date Visits Requested Visits Authorized [id number] Authorized Benefit Check 09/15/2023 03/16/2024 2 2 Reason Comments iui plan , cd1 01/12 Reason Comments Refill Request Reason Comments lmp 02/13 for iui - ovulation tracking Reason Comments Gynecologic Exam LMP: 02-13-24 regula r, monthly, heavy flow, lasts 3-4 daysBC: None- seeing fertility specialistLast pap 11-18-22 neg.Denies breast, urinary, or bowel concerns. Contraception Taking medroxyproges terone and progesterone. vaginal odor C/o recurring vagina l odor each time after intercourse. Does not think fishy odor, but strong. Unsure if discharge is present. Reason Comments needs [facility] Reason Comments ortega pt is not cleared for us should s he still have it do Reason Comments Earache Patient is here for ear pain. Reason Comments +hpt today/lmp 02/12 skipped treatment t his month Reason Comments Reason Comments Initial Visit Reason Comments Amenorrhea Reason Comments Routine Visit Reason Comments Toenail Problem 29 yo [employer]GAR [employer] presents to day with concerns of toenail thickening and discoloration, and callus and cracked heeled. Ongoing for quite a while. Has tried OTC products for both issues. Source Comments (unrecognize d section and content) In the event this informatio n is protected by the Federal Confidentiality of Alcohol and Drug Abuse Patient Records regulations: The Federal rules restrict any use of the information to criminally investigate or prosecute any alcohol or drug abuse patient.[facility] FoundationIn the event this information is protected by the Federal Confidentiality of Alcohol and Drug Abuse Patient Records regulations: The Federal rules restrict any use of the information to criminally investigate or prosecute any alcohol or drug abuse patient.[facility] the event this information is protected by the Federal Confidentiality of Alcohol and Drug Abuse Patient Records regulations: The Federal rules restrict any use of the information to criminally investigate or prosecute any alcohol or drug abuse patient.[facility] FoundationIn the event this information is protected by the Federal Confidentiality of Alcohol and Drug Abuse Patient Records regulations: The Federal rules restrict any use of the information to criminally investigate or prosecute any alcohol or drug abuse patient.[facility] FoundationIn the event this information is protected by the Federal Confidentiality of Alcohol and Drug Abuse Patient Records regulations: The Federal rules restrict any use of the information to criminally investigate or prosecute any alcohol or drug abuse patient.[facility] the event this information is protected by the Federal Confidentiality of Alcohol and Drug Abuse Patient Records regulations: The Federal rules restrict any use of the information to criminally investigate or prosecute any alcohol or drug abuse patient.[facility] FoundationIn the event this information is protected by the Federal Confidentiality of Alcohol and Drug Abuse Patient Records regulations: The Federal rules restrict any use of the information to criminally investigate or prosecute any alcohol or drug abuse patient.[facility] FoundationIn the event this information is protected by the Federal Confidentiality of Alcohol and Drug Abuse Patient Records regulations: The Federal rules restrict any use of the information to criminally investigate or prosecute any alcohol or drug abuse patient.[facility] FoundationIn the event this information is protected by the Federal Confidentiality of Alcohol and Drug Abuse Patient Records regulations: The Federal rules restrict any use of the information to criminally investigate or prosecute any alcohol or drug abuse patient.[facility] FoundationIn the event this information is protected by the Federal Confidentiality of Alcohol and Drug Abuse Patient Records regulations: The Federal rules restrict any use of the information to criminally investigate or prosecute any alcohol or drug abuse patient.[facility] FoundationIn the event this information is protected by the Federal Confidentiality of Alcohol and Drug Abuse Patient Records regulations: The Federal rules restrict any use of the information to criminally investigate or prosecute any alcohol or drug abuse patient.[facility] FoundationIn the event this information is protected by the Federal Confidentiality of Alcohol and Drug Abuse Patient Records regulations: The Federal rules restrict any use of the information to criminally investigate or prosecute any alcohol or drug abuse patient.[facility] FoundationIn the event this information is protected by the Federal Confidentiality of Alcohol and Drug Abuse Patient Records regulations: The Federal rules restrict any use of the information to criminally investigate or prosecute any alcohol or drug abuse patient.[facility] FoundationIn the event this information is protected by the Federal Confidentiality of Alcohol and Drug Abuse Patient Records regulations: The Federal rules restrict any use of the information to criminally investigate or prosecute any alcohol or drug abuse patient.[facility] FoundationIn the event this information is protected by the Federal Confidentiality of Alcohol and Drug Abuse Patient Records regulations: The Federal rules restrict any use of the information to criminally investigate or prosecute any alcohol or drug abuse patient.[facility] FoundationIn the event this information is protected by the Federal Confidentiality of Alcohol and Drug Abuse Patient Records regulations: The Federal rules restrict any use of the information to criminally investigate or prosecute any alcohol or drug abuse patient.[facility] FoundationIn the event this information is protected by the Federal Confidentiality of Alcohol and Drug Abuse Patient Records regulations: The Federal rules restrict any use of the information to criminally investigate or prosecute any alcohol or drug abuse patient.[facility] FoundationIn the event this information is protected by the Federal Confidentiality of Alcohol and Drug Abuse Patient Records regulations: The Federal rules restrict any use of the information to criminally investigate or prosecute any alcohol or drug abuse patient.[facility] FoundationIn the event this information is protected by the Federal Confidentiality of Alcohol and Drug Abuse Patient Records regulations: The Federal rules restrict any use of the information to criminally investigate or prosecute any alcohol or drug abuse patient.[facility] FoundationIn the event this information is protected by the Federal Confidentiality of Alcohol and Drug Abuse Patient Records regulations: The Federal rules restrict any use of the information to criminally investigate or prosecute any alcohol or drug abuse patient.[facility] FoundationIn the event this information is protected by the Federal Confidentiality of Alcohol and Drug Abuse Patient Records regulations: The Federal rules restrict any use of the information to criminally investigate or prosecute any alcohol or drug abuse patient.[facility] FoundationIn the event this information is protected by the Federal Confidentiality of Alcohol and Drug Abuse Patient Records regulations: The Federal rules restrict any use of the information to criminally investigate or prosecute any alcohol or drug abuse patient.[facility] FoundationIn the event this information is protected by the Federal Confidentiality of Alcohol and Drug Abuse Patient Records regulations: The Federal rules restrict any use of the information to criminally investigate or prosecute any alcohol or drug abuse patient.[facility] FoundationIn the event this information is protected by the Federal Confidentiality of Alcohol and Drug Abuse Patient Records regulations: The Federal rules restrict any use of the information to criminally investigate or prosecute any alcohol or drug abuse patient.[facility] FoundationIn the event this information is protected by the Federal Confidentiality of Alcohol and Drug Abuse Patient Records regulations: The Federal rules restrict any use of the information to criminally investigate or prosecute any alcohol or drug abuse patient.[facility] FoundationIn the event this information is protected by the Federal Confidentiality of Alcohol and Drug Abuse Patient Records regulations: The Federal rules restrict any use of the information to criminally investigate or prosecute any alcohol or drug abuse patient.[facility] FoundationIn the event this information is protected by the Federal Confidentiality of Alcohol and Drug Abuse Patient Records regulations: The Federal rules restrict any use of the information to criminally investigate or prosecute any alcohol or drug abuse patient.[facility] FoundationIn the event this information is protected by the Federal Confidentiality of Alcohol and Drug Abuse Patient Records regulations: The Federal rules restrict any use of the information to criminally investigate or prosecute any alcohol or drug abuse patient.[facility] FoundationIn the event this information is protected by the Federal Confidentiality of Alcohol and Drug Abuse Patient Records regulations: The Federal rules restrict any use of the information to criminally investigate or prosecute any alcohol or drug abuse patient.[facility] FoundationIn the event this information is protected by the Federal Confidentiality of Alcohol and Drug Abuse Patient Records regulations: The Federal rules restrict any use of the information to criminally investigate or prosecute any alcohol or drug abuse patient.[facility] FoundationIn the event this information is protected by the Federal Confidentiality of Alcohol and Drug Abuse Patient Records regulations: The Federal rules restrict any use of the information to criminally investigate or prosecute any alcohol or drug abuse patient.[facility] FoundationIn the event this information is protected by the Federal Confidentiality of Alcohol and Drug Abuse Patient Records regulations: The Federal rules restrict any use of the information to criminally investigate or prosecute any alcohol or drug abuse patient.[facility] FoundationIn the event this information is protected by the Federal Confidentiality of Alcohol and Drug Abuse Patient Records regulations: The Federal rules restrict any use of the information to criminally investigate or prosecute any alcohol or drug abuse patient.[facility] FoundationIn the event this information is protected by the Federal Confidentiality of Alcohol and Drug Abuse Patient Records regulations: The Federal rules restrict any use of the information to criminally investigate or prosecute any alcohol or drug abuse patient.[facility] FoundationIn the event this information is protected by the Federal Confidentiality of Alcohol and Drug Abuse Patient Records regulations: The Federal rules restrict any use of the information to criminally investigate or prosecute any alcohol or drug abuse patient.[facility] FoundationIn the event this information is protected by the Federal Confidentiality of Alcohol and Drug Abuse Patient Records regulations: The Federal rules restrict any use of the information to criminally investigate or prosecute any alcohol or drug abuse patient.[facility] FoundationIn the event this information is protected by the Federal Confidentiality of Alcohol and Drug Abuse Patient Records regulations: The Federal rules restrict any use of the information to criminally investigate or prosecute any alcohol or drug abuse patient.[facility] FoundationIn the event this information is protected by the Federal Confidentiality of Alcohol and Drug Abuse Patient Records regulations: The Federal rules restrict any use of the information to criminally investigate or prosecute any alcohol or drug abuse patient.[facility] FoundationIn the event this information is protected by the Federal Confidentiality of Alcohol and Drug Abuse Patient Records regulations: The Federal rules restrict any use of the information to criminally investigate or prosecute any alcohol or drug abuse patient.[facility] FoundationIn the event this information is protected by the Federal Confidentiality of Alcohol and Drug Abuse Patient Records regulations: The Federal rules restrict any use of the information to criminally investigate or prosecute any alcohol or drug abuse patient.[facility] FoundationIn the event this information is protected by the Federal Confidentiality of Alcohol and Drug Abuse Patient Records regulations: The Federal rules restrict any use of the information to criminally investigate or prosecute any alcohol or drug abuse patient.[facility] FoundationIn the event this information is protected by the Federal Confidentiality of Alcohol and Drug Abuse Patient Records regulations: The Federal rules restrict any use of the information to criminally investigate or prosecute any alcohol or drug abuse patient.[facility] FoundationIn the event this information is protected by the Federal Confidentiality of Alcohol and Drug Abuse Patient Records regulations: The Federal rules restrict any use of the information to criminally investigate or prosecute any alcohol or drug abuse patient.[facility] FoundationIn the event this information is protected by the Federal Confidentiality of Alcohol and Drug Abuse Patient Records regulations: The Federal rules restrict any use of the information to criminally investigate or prosecute any alcohol or drug abuse patient.[facility] FoundationIn the event this information is protected by the [facility] Confidentiality of Alcohol and Drug Abuse Patient Records regulations: The Federal rules restrict any use of the information to criminally investigate or prosecute any alcohol or drug abuse patient.[facility] FoundationIn the event this information is protected by the Federal Confidentiality of Alcohol and Drug Abuse Patient Records regulations: The Federal rules restrict any use of the information to criminally investigate or prosecute any alcohol or drug abuse patient.[facility] Care Teams (unrecognized sec tion and content) Frame Trimmer Relationship Specialty Start Date End Date Robles Goldsmith DO [address] [place] [address] Referring Obstetrics 10/13/22 Frame Trimmer Relationship Specialty Start Date End Date Robles Goldsmith DO [address] [place] [address] Referring Obstetrics 10/13/22 Frame Trimmer Relationship Specialty Start Date End Date Robles Goldsmith DO [address] [place] [address] Referring Obstetrics 10/13/22 Frame Trimmer Relationship Specialty Start Date End Date Robles Goldsmith, DO [address] [place] [address] Referring Obstetrics 10/13/22 Frame Trimmer Relationship Specialty Start Date End Date Robles Goldsmith, DO [address] [place] [address] Referring Obstetrics 10/13/22 Frame Trimmer Relationship Specialty Start Date End Date Robles Goldsmith, DO [address] [place] [address] Referring Obstetrics 10/13/22 Frame Trimmer Relationship Specialty Start Date End Date Robles Goldsmith, DO [address] [place] [address] Referring Obstetrics 10/13/22 Frame Trimmer Relationship Specialty Start Date End Date Robles Goldsmith, DO [address] [place] [address] Referring Obstetrics 10/13/22 Frame Trimmer Relationship Specialty Start Date End Date Robles Goldsmith, DO [address] [place] [address] Referring Obstetrics 10/13/22 Frame Trimmer Relationship Specialty Start Date End Date Robles Goldsmith, DO [address] [place] [address] Referring Obstetrics 10/13/22 Frame Trimmer Relationship Specialty Start Date End Date Robles Goldsmith, DO [address] [place] [address] Referring Obstetrics 10/13/22 Frame Trimmer Relationship Specialty Start Date End Date Robles Goldsmith, DO [address] [place] [address] Referring Obstetrics 10/13/22 Frame Trimmer Relationship Specialty Start Date End Date Robles Goldsmith, DO [address] [place] [address] Referring Obstetrics 10/13/22 Frame Trimmer Relationship Specialty Start Date End Date Robles Goldsmith, [address] [place] [address] Referring Obstetrics 10/13/22 Frame Trimmer Relationship Specialty Start Date End Date Robles Goldsmith, [address] [place] [address] Referring Obstetrics 10/13/22 Frame Trimmer Relationship Specialty Start Date End Date Robles Goldsmith, [address] [place] [address] Referring Obstetrics 10/13/22 Frame Trimmer Relationship Specialty Start Date End Date Robles Goldsmith, [address] [place] [address] Referring Obstetrics 10/13/22 Frame Trimmer Relationship Specialty Start Date End Date Robles Goldsmith, [address] [place] [address] Referring Obstetrics 10/13/22 Frame Trimmer Relationship Specialty Start Date End Date Robles Goldsmith DO [address] [place] [address] Referring Obstetrics 10/13/22 Frame Trimmer Relationship Specialty Start Date End Date Lito Velazquez MD [address] [place] [address] PCP - General Internal Medicine 10/05/22 Frame Trimmer Relationship Specialty Start Date End Date Lito Velazquez MD [address] [place] [address] PCP - General Internal Medicine 10/05/22 Frame Trimmer Relationship Specialty Start Date End Date Lito Velazquez MD [facility] [address] [place] [address] PCP - General Internal Medicine 02/14/24 Frame Trimmer Relationship Specialty Start Date End Date Robles Goldsmith DO [address] [place] [address] Referring Obstetrics 10/13/22 Frame Trimmer Relationship Specialty Start Date End Date Lito Velazquez MD [address] [place] [address] PCP - General Internal Medicine 10/05/22 Frame Trimmer Relationship Specialty Start Date End Date Robles Goldsmith DO [address] [place] [address] Referring Obstetrics 10/13/22 Frame Trimmer Relationship Specialty Start Date End Date Lito Velazquez MD [address] [place] [address] PCP - General Internal Medicine 10/05/22 Frame Trimmer Relationship Specialty Start Date End Date Lito Velazquez MD [address] [place] [address] PCP - General Internal Medicine 10/05/22 Frame Trimmer Relationship Specialty Start Date End Date Lito Velazquez MD [address] [place] [address] PCP - General Internal Medicine 10/05/22 Frame Trimmer Relationship Specialty Start Date End Date Lito Velazquez MD [address] [place] [address] PCP - General Internal Medicine 10/05/22 Frame Trimmer Relationship Specialty Start Date End Date Lito Velazquez MD [address] [place] [address] PCP - General Internal Medicine 10/05/22 FOR RECORDS PERTAINING TO PATIENTS WHO ARE OR HAVE BEEN ENROLLED IN A CHEMICAL DEPENDENCY/SUBSTANCEABUSE PROGRAM, SOME INFORMATION MAY BE OMITTED. This clinical summary was aggregated from multiple sources. Caution should be exercised in using it in the provision of clinical care. This summary normalizes information from multiple sources, and as a consequence, information in this document may materially change the coding, format and clinical context of patient data. In addition, data may be omitted in some cases. CLINICAL DECISIONS SHOULD BE BASED ON THE PRIMARY CLINICAL RECORDS. [facility]. provides no warranty or guarantee of the accuracy or completeness of information in this document.
[2024-06-21 00:07] LABS: AFP Value 24.8 ng/mL (.); Gest. Age on Collection Date 18.1 weeks (.); Insulin Dep Diabetes No (.); Maternal Age At EDD 29.6 yr (.); OSBR Risk 1 IN 10000 (.); Results Report (.)
== END 2024-06-19 10:57 | disposition home or self-care (01) ==
LOC: LAB 11:00
PROVIDERS: PCP Internal Medicine; Visit Provider Obstetrics & Gynecology
DX: Z34.92 Encounter for supervision of normal pregnancy, unspecified, second trimester (principal); Z36.1 Encounter for antenatal screening for raised alphafetoprotein level
CPT/HCPCS: 36415; 82105; 88175

== ENCOUNTER 2024-06-19 14:52 | Outpatient (REF) | payer OTHER, SELFPAY | END 2024-06-19 14:53 | disposition home or self-care (01) | LOC: LAB 14:52 | PROVIDERS: PCP Internal Medicine; Visit Provider Obstetrics & Gynecology | DX: Z01.419 Encounter for gynecological examination (general) (routine) without abnormal findings (principal) | CPT/HCPCS: 88175 ==

== ENCOUNTER 2024-08-04 16:59 | Outpatient (OUT) | payer OTHER, SELFPAY ==
--- NOTE | 2024-08-04 17:02 | US_ITS ---
[address] [address] Patient Name: LITO ROJAS MRN: [facility]:[id number] date: 1995 Sex: F Assigned Patient Location: Current Patient Location: Accession/Order Number: [id number] Exam Date: 08/07/2024 09:41 Report Date: 08/07/2024 09:48 At the request of: NEGAR GONZALEZ DO Procedure: US OB incomplete anatomy ULTRASOUND OB INCOMPLETE ANATOMY COMPARISON: None CLINICAL DATA: Incomplete assessment of outflow tracts There is a single live intrauterine gestation in cephalic presentation. There is cardiac activity with heart rate of 145 bpm. The amniotic fluid volume is subjectively normal. A four-chamber heart is identified. The left and right ventricular outflow tracts are identified. A tiny 2 mm echogenic focus is seen within the right ventricle which is usually considered a normal variant. US/US OB incomplete anatomy IMPRESSION: SINGLE LIVE INTRAUTERINE GESTATION. SATISFACTORY VISUALIZATION OF THE OUTFLOW TRACTS. Impression dictated by: Paula Gage M.D. 08/07/2024 9:48 AM Dictation Location: [place] [address] Electronically authenticated by: [id number] Y Date: 08/07/2024 09:48
--- OUTSIDE RECORDS SUMMARY | 2024-08-04 17:10 | XMS_ITS | CCD ---
Author Organization [facility] Care Team Providers Care Home Theatre Technician Name Role Phone LITO VELAZQUEZ Admitting Unavailable LITO VELAZQUEZ Attending Unavailable Josefina Kay Unavailable Robles Goldsmith DO Unavailable TANTIBHEDJOANNA, FEDE Referring Unav Lito Duarte MD Primary Care Provider JAILENE HOWARD Referring Unavailable TANTIBHEDHYANGKUL, JULMARY Referring Unav ailable TANTIBHEDHYANGKUL, JULMARY Referring Unav ailLito Li MD Primary Care Provider RUBY CANO Attending Unavailable LITO VELAZQUEZ Primary Care Unavailable GABRIEL BLACKWELL Attending Unavailable LITO VELAZQUEZ Primary Care Unavailable GALLAGHER, MIRTA Attending Unavailable FINA LIZAMA Referring Unavailable MINDZORA, ORTEGA Referring Unavailable VANESSA VO Attending Unavailable MINDZORA, ORTEGA Referring Unavailable MINDZORA, ORTEGA Referring Unavailable MINDZORA, ORTEGA Referring Unavailable TANTIBHEDHYANGKUL, JULMARY Attending Unav ailable MINDZORAORTEGA Attending Unavailable SELF Referring Unavailable TANTIBHEDHYANGKUL, JULMARY Attending Unav ailable MINDZORA, ORTEGA Referring Unavailable MINDZORA, ORTEGA Attending Unavailable MINDZORA, ORTEGA Referring Unavailable MINDZORA, ORTEGA Attending Unavailable MINDZORA, ORTEGA Referring Unavailable ATTARANDESHAWN Attending Unavailable ATTARAN, DESHAWN Referring Unavailable MINDZORA, ORTEGA Referring Unavailable GALLAGHER, MIRTA Referring Unavailable TANTIBHEDHYANGKUL, JULIERUT Attending Unav ismaelable МАРИЯ LABOY Attending Unavailable FINA LIZAMA Referring Unavailable MINDZORA, ORTEGA Attending Unavailable MINDZORA, ORTEGA Referring Unavailable MINDZORA, ORTEGA Referring Unavailable TANTIBHEDHYANGKUL, FEDE Referring Unav ailable TANTIBHEDHYANGKUL, FEDE Referring Unav ailable ORTEGA MORRISSEY Attending Unavailable ANNAMARIE WEISS Referring Unavailable ASPEN, МАРИЯ Referring Unavailable GALLAGHER, MIRTA Referring Unavailable ASPEN, МАРИЯ Referring Unavailable Steven CORBETT, Josefina Unavailable SARAVANAN AHUMADA Attending Unavailable ANDREW FERRER Attending Unavailable SARAVANAN AHUMADA Attending Unavailable LITO VELAZQUEZ Referring Unavailable ROBLES GOLDSMITH Attending Unavailable SARAVANAN AHUMADA Referring Unavailable SARAVANAN AHUMADA Attending Unavailable LITO VELAZQUEZ Attending Unavailable Medications Current Medications Medication Drug Class(es) Dates Sig (Normalized) Sig (Original) cholecalciferol 0.05 mg oral tablet (17 sources) Vitamin D take 2 tablets by mouth in the morning cholecalciferol (Vitamin D-3) 50 MCG (1999 UT) tablet Take 2 tablets by mouth in the morning. Active ammonium lactate 120 mg/ml topical cream (8 sources) Start: 05-23-2024 End: 05-23-2025 ammonium lactate (Amlactin) 12 % cream Indications: Xerosis cutis , Fissure in skin of both feet Apply topically Daily 140 g 3 05/23/2024 05/23/2025 Active PNV no.95/ferrous fum/folic ac ( ORAL) (20 [...] once daily. MV-Min-Fe Fum-FA-DHA ( 1 PO) (15 sources) MV-Min- Fe Fum-FA-DHA ( 1 PO) Take by mouth Active progesterone 200 mg oral capsule (20 sources) Progesterone Start: 10-26-2023 End: 03-27-2024 progesterone micronized (PROMETRIUM) 200 mg capsule Use 1 capsule vaginally two times a day. 180 capsule 10/26/2023 Active Completed/Discontinued Medications Medication Drug Class(es) Dates Sig (Normalized) Sig (Original) chorionic gonadotropin 17052 unt/ml injectable solution (13 sources) Gonadotropin Start: 02-17-2024 End: 03-17-2024 inject 28222 [IU] by subcutaneous injection once chorionic gonadotropin [...] dose. 0.5 mL 1 10/12/2023 10/12/2023 Active fluticasone propionate 0.05 mg/actuat metered dose nasal spray (4 sources) Corticosteroid Start: 03-08-2024 End: 07-17-2024 fluticasone (Flonase) 50 MCG/ACT nasal spray 2 sprays in the morning. 03/08/2024 07/17/2024 Discontinued Start: 03-08-2024 End: 06-06-2024 take 2 spray(s) nasal route once daily fluticasone (Flonase) 50 mcg/actuation nasal spray Indications: Chronic allergic rhinitis Administer 2 sprays into each nostril once daily. 48 mL 3 03/08/2024 06/06/2024 Active iv contrast (will be provided with [...] alverto th once daily for 10 days. 24 hr metFORMIN hydrochloride 500 mg extended release oral tablet (20 sources) Biguanide Start: 4 End: 5 metFORMIN XR (Glucophage-XR) 500 MG 24 hr tablet 03/03/2024 07/17/2024 Discontinued Start: 01-04-2023 End: 02-17-2024 take 3 tablets [...] on above: Take 3 tablets by mo ndh daily with breakfast. Start with 1 tablet daily and slowly increase the dose up to 3 tablets daily. Problems Active Problems Problem Classification Problem Date Documented Da te Episodic/Chronic Administrative/social admission (1 source) Treatment plan given; Translations: [Counseling, unspecified] 10-20-2023 Episodic Anxiety disorders (20 sources) Generalized anxiety disorder; Translations: [Generalized anxiety disorder] Onset: 3 12-29-2022 Chronic Asthma (1 source) Asthma; Translations: [Unspecified asthma, uncomplicated] Chronic Cardiac dysrhythmias (6 sources) Palpitations; Translations: [Palpitations] 07-18-2024 Episodic Contraceptive and procreative management (20 sources) Patient encounter status; Translations: [Encounter for fertility testing] Onset: 4 02-04-2023 Episodic Disorders of teeth and jaw (3 sources) Temporomandibular joint disorder; Translations: [Unspecified temporomandibular joint disorder, unspecified side] Onset: 4 03-08-2024 Episodic Female infertility (12 sources) Female infertility; Translations: [Female infertility, unspecified] Onset: 4 09-10-2023 Chronic Heart valve disorders (4 sources) Heart murmur; Translations: [Cardiac murmur, unspecified] 07-18-2024 Episodic Inflammatory diseases of female pelvic organs (1 source) Bacterial vaginosis; Translations: [Acute vaginitis] 02-15-2024 Episodic Malaise and fatigue (20 sources) Chronic fatigue syndrome; Translations: [Chronic fatigue syndrome] Onset: 3 Resolved: 3 12-29-2022 Chronic Menstrual disorders (20 sources) Menorrhagia; Translations: [Excessive and frequent menstruation with regular cycle] Onset: 3 12-29-2022 Chronic Mycoses (2 sources) Onychomycosis; Translations: [Tinea unguium] 05-23-2024 Episodic Nutritional deficiencies (19 sources) Vitamin D deficiency; Translations: [Vitamin D [...] syndrome; Translations: [PCOS (polycystic ovarian syndrome)] Onset: Chronic Other gastrointestinal disorders (1 source) Finding of abdominopelvic segment of trunk; Translations: [Intra-abdominal and pelvic swelling, mass and lump, unspecified site] 06-16-2023 Episodic Other liver diseases (19 sources) Steatosis of liver; Translations: [Fatty (change [...] 4 Chronic Other and delivery including normal (9 sources) test positive; Translations: [Encounter for test, [...] of prostate] 05-18-2023 Episodic Residual codes; unclassified (20 sources) Genetic mutation; Translations: [Genetic susceptibility to other disease] Onset: 4 06-16-2023 Episodic Residual codes; unclassified (1 source) Gestation period, 9 weeks; Translations: [9 weeks gestation of ] 04-21-2024 Episodic Residual codes; unclassified (1 source) Gestation period, 13 weeks; Translations: [13 weeks gestation of ] 05-15-2024 Episodic Residual codes; unclassified (2 sources) Gestation period, 14 weeks; Translations: [14 weeks gestation of ] 05-22-2024 Episodic Residual codes; unclassified (2 sources) Gestation period, 22 weeks; Translations: [22 weeks gestation of ] 07-17-2024 Episodic Unclassified (1 source) Infertility Onset: 4 Unclassified (12 sources) OB Reminders Onset: 5 04-30-2024 Urinary tract infections (1 source) Urinary tract infectious disease; Translations: [Urinary tract infection, site not specified] 05-15-2024 Episodic Viral infection (20 sources) Genital herpes simplex; Translations: [Herpesviral infection of urogenital system, unspecified] Onset: 3 12-29-2022 Chronic Past or Other Problems Problem Classification Problem Date Documented Da te Episodic/Chronic Esophageal disorders (20 sources) Gastroesophageal reflux disease; [...] site] Onset: 4 Episodic Residual codes; unclassified (1 [...] Name Value Interpretation Reference Range Facil ity Urinalysis macro (dipstick) panel (U)on 07-17-2024 Bilirubin, UA Negative Negative - 4(70) +++ mg/dL [facility] Blood, UA Positive Negative - 50 Jorge Luis/mcL [facility] Comment on above: Trace-lysed Clarity, UA Clear [facility] Color, UA Yellow [facility] Glucose, UA Negative Negative - 1999(110) ++++ mg/dL [facility] Interpretation and review of laboratory results Abnormal [facility] Ketones, UA Negative Negative - 160(16) ++++ mg/dL [facility] Leukocytes, UA Negative Negative - 500+++ Flori/mcL [facility] Nitrite, UA Negative Negative - Positive [facility] pH, UA 7 5 - 9 [facility] Protein, UA Trace Negative - 2000(20) ++++ mg/dL [facility] Spec Grav, UA 1.02 1 - 1.03 [facility] Urobilinogen, UA 0.2 0.2 - 12 mg/dL [facility] OB 14+ WEEKS ANATOMY SCAN on 07-05-2024 US OB 14+ WEEKS ANATOMY SCAN EXAM: US OB 14+ WEEKS ANATOMY SCAN HISTORY: anatomy. COMPARISON: OB ultrasound 06/19/2024. TECHNIQUE: Two-dimensional transabdominal grayscale ultrasound imaging of the pelvis was performed. FINDINGS: Gestation: Single Presentation: Breech Cardiac Activity: Present Placental Location: Posterior with no sonographic abnormalities identified. Distance from Placental Tip to Cervix: 4.9 cm Cervical Length: 4.3 cm Amniotic Fluid: Appears adequate MEASUREMENTS: BPD: 4.6 cm EGA: 19 weeks 6 days HC: 17.2 cm EGA: 19 weeks 5 days AC: 15.2 cm EGA: 20 weeks 3 days FL: 3.3 cm EGA: 20 weeks 2 days HC/AC Ratio: 1.13 The gestational age by today's ultrasound is 20 weeks 1 days (+/- 10 days gestation). Estimated Weight: 344 grams, +/- 52 grams ( 0 lb 12 oz). Weight Percentile for gestational age: 37 % ANATOMY C-Spine: Unremarkable T-Spine: Unremarkable L-Spine: Unremarkable Sacrum: Unremarkable Four Chamber Heart: Unremarkable LVOT: Limited RVOT: Limited Stomach: Unremarkable Kidneys: Unremarkable Bladder: Unremarkable Diaphragm: Unremarkable Cord insertion: Unremarkable Cord vessels: Three Lateral Ventricles: Unremarkable Cerebellum: Unremarkable Cisterna Magna: Unremarkable Posterior Fossa: Unremarkable Right Femur: Unremarkable Left Femur: Unremarkable Right Tib/Fib: Unremarkable Left Tib/Fib: Unremarkable Right Rad/Ulnar: Unremarkable Left Rad/Ulnar: Unremarkable Right Humerus: Unremarkable Left Humerus: Unremarkable Nose/Lips: Unremarkable Orbits: Unremarkable IMPRESSION: 1. Single, live intrauterine gestation 20 weeks, 3 days by LMP. Today's ultrasound measurements correlate with a gestational age of 20 weeks 1 days. Estimated weight is 344 grams, +/- 52 grams ( 0 lb 12 oz) which correlates to 37 %. KERA is 11/21/2024. 2. Limited visualization of the outflow tracts. A short-term follow-up ultrasound is recommended. Interpreted by: Electronically signed by ALYSA WALKER II, MD, PHD at 07-Jul-2024 06:23:52 AM [facility] Normal Not Available Comment on above: Order Comment: US OB ANATOMY SINGLE W US OB CERVICAL LENGTH Estimated Date of Delivery: 11/19/24 Gestational Age as of 06/19/2024: 18w1d US OB LIMITED 1+ FETUSESon 0 06-19-2024 US OB LIMITED 1+ FETUSES EXAM: US OB LIMITED 1+ FETUSES HISTORY: Complete previa. COMPARISON: OB ultrasound 04/21/2024. TECHNIQUE: Two-dimensional transabdominal grayscale ultrasound imaging of the pelvis was performed. FINDINGS: Gestation: Single Presentation: Breech Cardiac Activity: 138 beats per minute Placental Location: Posterior with no sonographic abnormalities identified. Distance from Placental Tip to Cervix: 5.1 cm Cervical canal: Not well visualized Amniotic Fluid: Appears adequate IMPRESSION: 1. Single, live intrauterine gestation 18 weeks, 1 days by LMP. KERA is 11/19/2024. 2. Placental tip to cervix is within normal limits. No evidence of placenta previa. Electronically Signed:Electronically signed by ALYSA WALKER II, MD, PHD at 20-Jun-2024 09:56:32 AM [facility] Normal Not Available Comment on above: Order Comment: US OB PLACENTA W US OB TRANSVAGINAL Estimated Date of Delivery: 11/19/24 Gestational Age as of 06/19/2024: 18w1d US OB CERVICAL LENGTHon 04-30 [place] [address] Ultrasound Report Signed Patient: EMILEE RIVAS MR#: [id number] : 1995 Acct:[id number] Age/Sex: 29 / F ADM Date: 05/23/24 Loc: US Attending Dr: Saravanan Ahumada D.O. Ordering Physician: Saravanan Ahumada D.O. Date of Service: 05/23/24 Procedure(s): US OB cervical length Accession Number(s): [id number] cc: Saravanan Ahumada D.O.; LITO VELAZQUEZ [address] [address] Patient Name: EMILEE RIVAS MRN: [id number] date: 1995 Sex: F Assigned Patient Location: US Current Patient Location: US Accession/Order Number: [id number] Exam Date: 05/23/2024 23:10 Report Date: 05/23/2024 [...] Harmon Jr., D.O.05/23/2024 11:13 PM Dictation Location: [place] [address] Electronically authenticated by: [id number] Y Date: 05/23/2024 23:13 Dictated By: Navjot Harmon M.D. Signed By: 05/23/242314 DD/ 12 TD/TT: Business Unit Controller: [facility] Radiology, Radiologist, MD - 05/24/2024 [place] [address] Ultrasound Report Signed Patient: EMILEE RIVAS MR#: [id number] : 1995 Acct:[id number] Age/Sex: 29 / F ADM Date: 05/23/24 Loc: US Attending Dr: Saravanan Ahumada D.O. Ordering Physician: Saravanan Ahumada D.O. Date of Service: 05/23/24 Procedure(s): US OB cervical length Accession Number(s): [id number] cc: Saravanan Ahumada D.O.; LITO VELAZQUEZ [place] [id number] Patient Name: EMILEE RIVAS MRN: [facility]:[id number] date: 1995 Sex: F Assigned Patient Location: US Current Patient Location: US Accession/Order Number: [id number] Exam Date: 05/23/2024 23:10 Report Date: 05/23/2024 23:13 At the request of: SARAVANAN ZITA DO Procedure: US OB cervical length Cervical [...] Harmon Jr., D.O.05/23/2024 11:13 PM Dictation Location: [place] Electronically authenticated by: [id number] Y Date: 05/23/2024 23:13 Dictated By: Navjot Harmon M.D. Signed By: 05/23/242314 DD/ 12 TD/TT: Business Unit Controller: [facility] Radiology Study observation (narrative) [facility] US OB CERVICAL LENGTHOrdered By: Radiologist Radiology on 05-23-2024 [facility] Work Phone: Urinalysis macro (dipstick) panel (U)on 05-22-2024 Bilirubin, UA Negative Negative - 4(70) +++ mg/dL [facility] Blood, UA Negative Negative - 50 Jorge Luis/mcL [facility] Clarity, UA Clear [facility] Color, UA Yellow [facility] Glucose, UA Negative Negative - 1999(110) ++++ mg/dL [facility] Interpretation and review of laboratory results Normal [facility] Ketones, UA Negative Negative - 160(16) ++++ mg/dL [facility] Leukocytes, UA Negative Negative - 500+++ Flori/mcL [facility] Nitrite, UA Negative Negative - Positive [facility] pH, UA 7 5 - 9 [facility] Protein, UA Negative Negative - 2000(20) ++++ mg/dL [facility] Spec Grav, UA 1.015 1 - 1.03 [facility] Urobilinogen, UA 0.2 0.2 - 12 mg/dL [facility] Urinalysis macro (dipstick) panel (U)on 05-15-2024 Bilirubin, UA Negative Negative - 4(70) +++ mg/dL [facility] Blood, UA Negative Negative - 50 Jorge Luis/mcL [facility] Clarity, UA Clear [facility] Color, UA Yellow [facility] Glucose, UA Negative Negative - 2000(110) ++++ mg/dL [facility] Interpretation and review of laboratory results Normal [facility] Ketones, UA Negative Negative - 160(16) ++++ mg/dL [facility] Leukocytes, UA Negative Negative - 500+++ Flori/mcL [facility] Nitrite, UA Negative Negative - Positive [facility] pH, UA 6 5 - 9 [facility] Protein, UA Negative Negative - 2000(20) ++++ mg/dL [facility] Spec Grav, UA 1.01 1 - 1.03 [facility] Urobilinogen, UA 0.2 0.2 - 12 mg/dL [facility] BOX TESTon 04-21-2024 BOX TEST SENT OUT 04/21/24 [facility] BOX1 [facility] BOX2 [facility] HCG ( test) Ql (U)o n 04-21-2024 Interpretation and review of laboratory results Abnormal [facility] Preg Test, Ur Positive Negative [facility] US OB TRANSVAGINALon 025 US OB TRANSVAGINAL [...] UA Negative Negative - 4(70) +++ mg/dL [facility] Blood, UA Negative Negative - 50 Jorge Luis/mcL [facility] Clarity, UA Clear [facility] Color, UA Yellow [facility] Glucose, UA Negative Negative - 1999(110) ++++ mg/dL [facility] Interpretation and review of laboratory results Normal [facility] Ketones, UA Negative Negative - 160(16) ++++ mg/dL [facility] Leukocytes, UA Negative Negative - 500+++ Flori/mcL [facility] Nitrite, UA Negative Negative - Positive [facility] pH, UA 7 5 - 9 [facility] Protein, UA Negative Negative - 1999(20) ++++ mg/dL [facility] Spec Grav, UA 1.02 1 - 1.03 [facility] Urobilinogen, UA 0.2 0.2 - 12 mg/dL [facility] CNNURSEon 2024 CNNURSE Nurse Visit (REIAV) LISSA RIVAS ([id number]) 1995 F Date Time Provider Department 04/03/24 11:10 AM TECH [facility] REJ REIAV During your visit today, we recorded the following information about you: Ortega Morrissey APRN.TELEVISION WRITER 2024 4:38 PM Signed Lissa Rivas here today for a scan. This is her 1st scan. 0 0 0 History of ectopic: No History of SAB: No History of pelvic/abdominal surgeries: No LMP 02/12, fertility medications used this cycle: let 5mg, date of LH surge: LH + /, TI Latest Ref Rng 01/04/2023 ABO A [...] Plan Move on to OB Ortega Morrissey APRN.TELEVISION WRITER 2024 4:34 PM Referring Provider: ORTEGA MORRISSEY [[id number]] Allergies As of Date: 2024 (No Known Allergies) Date Reviewed: 02/23/2024 Reviewed by: Paula Hester RN - Fully Assessed Visit Diagnosis:Supervision of with history of infertility, first trimester [O09.01] Order(s):OBSTETRIC ULTRASOUND [facility] [[id number]] Order #: [id number]. #:[id number] IEWPOINTQty: 1 Prescriptions as of 2024 - [...] Status:Closed by JAILENE HOWARD on 04/03/24 Normal [facility] Examination level ultrasound on 2024 Indication Viability Impression - Single, live, intrauterine . - An intrauterine gestational sac with a yolk sac and pole is present. - Elaine rump length measurement is NOT consistent with [...] Read By: Jailene Howard M.D. MATERNAL MEDICINE [facility] Radiology Study observation (narrative) [facility] CONSULT PROGon 03-20-2024 CONSULT PROG HNO ID: [id number] Author: FEDE HAIRSTON MD Service: ? Author [...] Hysteroscopy Laparoscopy OPK (Ovulation Predictor Kit) Ovarian [facility] 10.91 High 01/04/2023 Saline Ultrasound Semen [...] visit. 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 I spent a total of 30 minutes on the date of the service which included preparing to see the patient, [id number] patient care, counseling and educating the patient/family/caregi deborah, ordering medications, tests, or procedures, communicating results to the patient/family/caregi deborah, and care coordination (not separately reported). MD Kim Branch MD Normal [facility] B-HCG SerPl-aCncon 4 HCG.beta subunit Qn 190.7 m[IU]/mL High <5.[address] [facility] Comment on above: Order Comment: Speci men Type: BLOOD SPECIMENOrdering Facility: [facility] Address: [address] [place] [address] Result Comment: LUCA TITATIVE HCG NORMAL RANGES Weeks of Gestation (Weeks Since LMP) 3 Weeks (5.8-71.2 mIU/mL) 4 Weeks (9.5-750 mIU/mL) 5 Weeks (217-7138 mIU/mL) 6 Weeks (158-63972 mIU/mL) 7 Weeks (3697-710484 mIU/mL) 8 Weeks (44733-496424 mIU/mL) 9 Weeks (50756-860478 mIU/mL) 10 Weeks (68434-985965 mIU/mL) 12 Weeks (79892-622457 mIU/mL) Referenced to 4th IS of [facility] Performed By: #### 2 1198-7 ####[facility] LABIA [id number] [address] OF [place] B-HCG SerPl-aCncon 4 HCG.beta subunit Qn 87.6 m[IU]/mL High <5.0 [facility] Comment on above: Order Comment: Speci men Type: BLOOD SPECIMENOrdering Facility: [facility] Address: [address] [place] [address] Result Comment: LUCA TITATIVE HCG NORMAL RANGES Weeks of Gestation (Weeks Since LMP) 3 Weeks (5.8-71.2 mIU/mL) 4 Weeks (9.5-750 mIU/mL) 5 Weeks (217-7138 mIU/mL) 6 Weeks (158-48982 mIU/mL) 7 Weeks (3697-009063 mIU/mL) 8 Weeks (21815-808819 mIU/mL) 9 Weeks (26282-148642 mIU/mL) 10 Weeks (19484-355627 mIU/mL) 12 Weeks (89813-776451 mIU/mL) Referenced to 4th IS of [facility] Performed By: #### 2 1198-7 ####[facility] LABCLIA [id number] [address] [place] B-HCG SerPl-aCncon 4 HCG.beta subunit Qn 21.9 m[IU]/mL High <5.0 [facility] Comment on above: Order Comment: Speci men Type: BLOOD SPECIMENOrdering Facility: [facility] Address: [address] [place] [address] Result Comment: LUCA TITATIVE HCG NORMAL RANGES Weeks of Gestation (Weeks Since LMP) 3 Weeks (5.8-71.2 mIU/mL) 4 Weeks (9.5-750 mIU/mL) 5 Weeks (217-7138 mIU/mL) 6 Weeks (158-09024 mIU/mL) 7 Weeks (3697-110100 mIU/mL) 8 Weeks (30862-160417 mIU/mL) 9 Weeks (26852-011410 mIU/mL) 10 Weeks (26405-075732 mIU/mL) 12 Weeks (37693-065827 mIU/mL) Referenced to 4th IS of [facility] Performed By: #### 2 1198-7 ####[facility] LABCAMPOS [id number] [address] OF [facility] CNP[facility] Telephone (REIBD) LISSA RIVAS ([id number]) 1995 F Date Time Provider Department 03/13/24 FEDE HAIRSTON During your visit today, we recorded the following information about you: Ayanna Wise 03/13/2024 11:56 AM Signed Patient states she skipped this month and has +hpt, please follow up with patient. Ortega Morrissey APRN.TELEVISION WRITER 03/13/2024 1:37 PM Signed Patient calls with [...] ordered: HCG x2 FYI Dr. Bill Morrissey, DELIVERY PERSON.TELEVISION WRITER March 13, 2024 1:37 PM Allergies As of Date: 03/13/2024 (No Known Allergies) Date Reviewed: 02/23/2024 Reviewed by: Paula Hester RN - Fully Assessed Reason for Visit: +hpt today/lmp 02/12 skipped treatment this month [Other] Primary Visit Diagnosis:Supervision of with history of infertility, first trimester [O09.01] Other Visit Diagnosis: examination or test, unconfirmed [Z32.00] Order(s):HCG QUANTITATIVE [SQHCGQT] Order #: [id number] STANDING Prescriptions as of 03/13/2024 - metFORMIN [...] Status:Closed by ORTEGA MORRISSEY on 03/13/24 Normal [facility] Progest SerPl-Avni 12-13-2 024 Progesterone [Mass/Vol] 17.8 ng/mL Normal See comment [facility] Comment on above: Order Comment: Speci men Type: BLOOD SPECIMENOrdering Facility: [facility] Address: [address] [place] [id number] Result Comment: Mens trual Cycle Progesterone Reference Ranges: Follicular: <1.0 ng/mL Ovulation: <12.1 ng/mL Luteal: 1.8 to 23.9 ng/mL. Progesterone Reference Ranges vary by gestational period: First Trimester: 11.0 to 44.3 ng/mL Second Trimester: 25.4 to 83.3 ng/mL Third Trimester: 58.7 to 214 ng/mL Post menopausal Progesterone: <0.5 ng/mL Reference: 1. Progesterone (Progesterone III) [package insert V 1.0 Australian]. [facility], [place], [place]. December 2014. Performed By: #### 2 839-9 ####[facility] [id number] [place] [id number] [facility] Alexandra 02-28-2024 LAURA Telephone (REIBD) LISSA RIVAS ([id number]) 1995 F Date Time Provider Department 02/28/24 FEDE HAIRSTON During your visit today, we recorded the following information about you: Joanna Garces 02/28/2024 8:23 AM Signed Pt is not financially clear yet should she still schedule it after she pays Ortega Morrissey APRN.TELEVISION WRITER 02/28/2024 11:54 AM Signed Spoke with Thao, [...] cycle day 3-7 Authorizing Provider: ORTEGA MORRISSEY APRN.TELEVISION WRITER February 28, 2024 11:54 AM Allergies As of Date: 02/28/2024 (No Known Allergies) Date Reviewed: 02/23/2024 Reviewed by: Paula Hester, ARIC - Fully Assessed Reason for Visit: ortega pt is not cleared for us should she still have it do [Other] Primary Visit Diagnosis:Female infertility [N97.9] Order(s):PROGESTERONE [SQPROG] Order #: [id number] FUTURE letrozole (FEMARA) 2.5 mg tabletTake 3 [...] Status:Closed by ORTEGA MORRISSEY on 02/28/24 Normal [facility] 25(OH)D3 Laurent-Avni 2023 25-hydroxyvitamin D3 [Mass/Vol] 49.3 ng/mL Normal 31.0-80.0 [facility] Comment on above: Order Comment: Speci men Type: BLOOD SPECIMEN Ordering Facility: [facility] Address: [address] [place] [address] Result Comment: Clas sification of 25 [place] Vitamin D status: Deficiency/Insufficiency: < or = 30 ng/ml. Sufficiency/Optimal Levels: 31-80 ng/mL Toxicity: > 100 ng/mL. Test performed by chemiluminescent immunoassay. Performed By: #### 1 989-3 #### [facility] CLIA [id number] [address] [place] [address] [place] 25-hydroxyvitamin D3 [Mass/V ol]on 02-23-2024 Interpretation and review of laboratory results Normal [facility] The reference range interval was based on an analysis of samples from healthy adults and may not pertain to children from 0-18 years old. [facility] CBC panel Auto (Bld)on 02-22 Erythrocyte distribution width (RBC) [Ratio] 12.4 % 11.5 - 15.0 % [facility] Hematocrit (Bld) [Volume fraction] 40.6 % 36.0 - 46.0 % [facility] Hemoglobin (Bld) [Mass/Vol] 13.5 g/dL 11.5 - 15.5 g/dL [facility] Interpretation and review of laboratory results Normal [facility] MCH (RBC) [Entitic mass] 31.1 pg 26.0 - 34.0 pg [facility] MCHC (RBC) [Mass/Vol] 33.3 g/dL 30.5 - 36.0 g/dL [facility] MCV (RBC) [Entitic vol] 93.5 fL 80.0 - 100.0 fL [facility] Nucleated RBC (Bld) [#/Vol] NINF [facility] Platelet mean volume (Bld) [Entitic vol] 10.6 fL 9.0 - 12.7 fL [facility] Platelets (Bld) [#/Vol] 261 10*3/uL [facility] RBC (Bld) [#/Vol] 4.34 10*6/uL 3.90 - 5.2 0 m/uL [facility] WBC (Bld) [#/Vol] 8.81 10*3/uL [facility] Erythrocyte distribution width (RBC) [Ratio] 12.4 % Normal 11.5-15.0 [facility] Comment on above: Order Comment: Jarek leger Type: BLOOD SPECIMEN Ordering Facility: [facility] Address: [address] [place] [address] Performed By: #### 5 8410-2 #### [facility] IA [id number] [address] [place] Hematocrit (Bld) [Volume fraction] 40.6 % Normal 36.0-46.0 [facility] Comment on above: Order Comment: Jarek leger Type: BLOOD SPECIMEN Ordering Facility: [facility] Address: [address] [place] [address] Performed By: #### 5 8410-2 #### [facility] CLIA [id number] [address] [place] [address] [place] Hemoglobin (Bld) [Mass/Vol] 13.5 g/dL Normal 11.5-15.5 [facility] Comment on above: Order Comment: Harmonyi arsen Type: BLOOD SPECIMEN Ordering Facility: [facility] Address: [address] [place] [address] Performed By: #### 5 8410-2 #### [facility] CLIA [id number] [address] [place] [address] [place] MCH (RBC) [Entitic mass] 31.1 pg Normal 26.0-34.0 [facility] Comment on above: Order Comment: Speci men Type: BLOOD SPECIMEN Ordering Facility: [facility] Address: [address] [place] [address] Performed By: #### 5 8410-2 #### [facility] IA [id number] [address] OF [facility] MCHC (RBC) [Mass/Vol] 33.3 g/dL Normal 30.5-36.0 [facility] Comment on above: Order Comment: Speci men Type: BLOOD SPECIMEN Ordering Facility: [facility] Address: [address] [place] [address] Performed By: #### 5 8410-2 #### [facility] IA [id number] [address] [place] MCV (RBC) [Entitic vol] 93.5 fL Normal 80.0-100.0 [facility] Comment on above: Order Comment: Speci men Type: BLOOD SPECIMEN Ordering Facility: [facility] Address: [address] [place] [address] Performed By: #### 5 8410-2 #### [facility] IA [id number] [address] [place] Nucleated RBC (Bld) [#/Vol] 10*3/uL Normal <0.01 [facility] Comment on above: Order Comment: Speci men Type: BLOOD SPECIMEN Ordering Facility: [facility] Address: [address] [place] [address] Performed By: #### 5 8410-2 #### [facility] CLIA [id number] [address] [place], [place] [id number] [place] [address] [place] Platelet mean volume (Bld) [Entitic vol] 10.6 fL Normal 9.0-12.7 [facility] Comment on above: Order Comment: Speci men Type: BLOOD SPECIMEN Ordering Facility: [facility] Address: [address] [place] [address] Performed By: #### 5 8410-2 #### [facility] IA [id number] [address] [place] Platelets (Bld) [#/Vol] 261 10*3/uL Normal 150-400 [facility] Comment on above: Order Comment: Speci men Type: BLOOD SPECIMEN Ordering Facility: [facility] Address: [address] [place] [address] Performed By: #### 5 8410-2 #### [facility] CLIA [id number] [address] [place] [address] [place] RBC (Bld) [#/Vol] 4.34 10*6/uL Normal 3.90-5.20 [facility] Comment on above: Order Comment: Speci men Type: BLOOD SPECIMEN Ordering Facility: [facility] Address: [address] [place] [address] Performed By: #### 5 8410-2 #### [facility] CLIA [id number] [address] [place] [id number] [facility] WBC (Bld) [#/Vol] 8.81 10*3/uL Normal 3.70-11.00 [facility] Comment on above: Order Comment: Speci men Type: BLOOD SPECIMEN Ordering Facility: [facility] Address: [address] [place] [address] Performed By: #### 5 8410-2 #### [facility] CLIA [id number] [address] [place] [address] [facility] CNNURSE Nurse Visit (DAVI) LISSA RIVAS ([id number]) 1995 F Date Time Provider Department 02/23/24 [...] closest open slot. Call to patient needed: Ortega Martinez APRN.CNP 02/23/2024 4:03 PM Signed Addended by: ORTEGA MORRISSEY on: 02/23/2024 04:03 PM Modules accepted: Orders Referring Provider: ORTEGA MORRISSEY [[id number]] Allergies As of Date: 02/23/2024 (No Known Allergies) Date Reviewed: 02/23/2024 Reviewed by: Paula Hester RN - Fully Assessed Reason for Visit: Infertility [285] Visit Diagnosis:Female infertility [N97.9] Order(s):FOLLICULAR US WHI [[id number]] Order #: [id number]. #:[id number] IEWPOINTQty: 1 FOLLICULAR US WHI [[id number]] Order #: [id number]: 1 FUTURE Prescriptions as of 02/23/2024 - [...] Status:Closed by VANESSA VO on 02/23/24 Normal [facility] Cobalamin (Vitamin B12) [Mas s/Vol]on 02-23-2024 Interpretation and review of laboratory results Normal [facility] Comprehensive metabolic 2000 panelon 02-23-2024 Albumin [Mass/Vol] 4.5 g/dL 3.9 - 4.9 g/dL [facility] ALP [Catalytic activity/Vol] 65 U/L 34 - 123 U/L [facility] ALT [Catalytic activity/Vol] 41 U/L High 7 - 38 U/L [facility] Anion gap [Moles/Vol] 12 mmol/L 8 - 15 mmol/L [facility] AST [Catalytic activity/Vol] 21 U/L 13 - 35 U/L [facility] Bilirubin [Mass/Vol] 0.2 mg/dL 0.2 - 1.3 mg/dL [facility] Calcium [Mass/Vol] 9.3 mg/dL 8.5 - 10. 2 mg/dL [facility] Chloride [Moles/Vol] 105 mmol/L 98 - 107 mmol/L [facility] CO2 [Moles/Vol] 24 mmol/L 22 - 30 mmol/L [facility] Creatinine [Mass/Vol] 0.78 mg/dL 0.58 - 0.96 mg/dL [facility] GFR/1.73 sq M.predicted among non-blacks MDRD (S/P/Bld) [Vol rate/Area] 106 mL/min/{1.73_m2} - PINF [facility] Comment on above: Estimated Glomerular Filtration Rate [...] [Mass/Vol] 98 mg/dL 74 - 99 mg/dL [facility] Comment on above: The [place] Diabete s Association (ADA) provides guidance for [...] Standards of Medical Care in Diabetes 2016, [place] Diabetes Association. Diabetes Care. 2016.39(Suppl 1). Interpretation and review of laboratory results Abnormal [facility] Potassium [Moles/Vol] 4.3 mmol/L 3.7 - 5.1 mmol/L [facility] Protein [Mass/Vol] 7.3 g/dL 6.3 - 8.0 g/dL [facility] Sodium [Moles/Vol] 141 mmol/L 136 - 144 mmol/L [facility] Urea nitrogen [Mass/Vol] 11 mg/dL 7 - 21 mg/dL [facility] Albumin [Mass/Vol] 4.5 g/dL Normal 3.9-4.9 [facility] Comment on above: Order Comment: Speci men Type: BLOOD SPECIMEN Ordering Facility: [facility] Address: [address] [place] [address] Performed By: #### 2 4323-8 #### [facility] CLIA [id number] [address] [place] [address] [place] ALP [Catalytic activity/Vol] 65 U/L Normal 34-123 [facility] Comment on above: Order Comment: Speci men Type: BLOOD SPECIMEN Ordering Facility: [facility] Address: [address] [place] [address] Performed By: #### 2 4323-8 #### [facility] CLIA [id number] [address] [place] [address] [place] ALT [Catalytic activity/Vol] 41 U/L High 7-38 [facility] Comment on above: Order Comment: Speci men Type: BLOOD SPECIMEN Ordering Facility: [facility] Address: [address] [place] [address] Performed By: #### 2 4323-8 #### [facility] CLIA [id number] [address] [place] [address] [place] Anion gap [Moles/Vol] 12 mmol/L Normal 8-15 [facility] Comment on above: Order Comment: Speci men Type: BLOOD SPECIMEN Ordering Facility: [facility] Address: [address] [place] [address] Performed By: #### 2 4323-8 #### [facility] CLIA [id number] [address] [place] [address] [place] AST [Catalytic activity/Vol] 21 U/L Normal 13-35 [facility] Comment on above: Order Comment: Speci men Type: BLOOD SPECIMEN Ordering Facility: [facility] Address: [address] [place] [address] Performed By: #### 2 4323-8 #### [facility] IA [id number] [address] [place] [address] [place] Bilirubin [Mass/Vol] 0.2 mg/dL Normal 0.2-1.3 [facility] Comment on above: Order Comment: Speci men Type: BLOOD SPECIMEN Ordering Facility: [facility] Address: [address] [place] [address] Performed By: #### 2 4323-8 #### [facility] CLIA [id number] [address] [place] [address] [place] Calcium [Mass/Vol] 9.3 mg/dL Normal 8.5-10.2 [facility] Comment on above: Order Comment: Speci men Type: BLOOD SPECIMEN Ordering Facility: [facility] Address: [address] [place] [address] Performed By: #### 2 4323-8 #### [facility] IA [id number] [address] [place] [address] [place] Chloride [Moles/Vol] 105 mmol/L Normal 98-107 [facility] Comment on above: Order Comment: Speci men Type: BLOOD SPECIMEN Ordering Facility: [facility] Address: [address] [place] [address] Performed By: #### 2 4323-8 #### [facility] CLIA [id number] [address] [place] [address] [place] CO2 [Moles/Vol] 24 mmol/L Normal 22-30 [facility] Comment on above: Order Comment: Speci men Type: BLOOD SPECIMEN Ordering Facility: [facility] Address: [address] [place] [address] Performed By: #### 2 4323-8 #### [facility] CLIA [id number] [address] [place] [address] [place] Creatinine [Mass/Vol] 0.78 mg/dL Normal 0.58-0.96 [facility] Comment on above: Order Comment: Jarek leger Type: BLOOD SPECIMEN Ordering Facility: [facility] Address: [address] [place] [address] Performed By: #### 2 4323-8 #### [facility] CLIA [id number] [address] [facility] [place] [address] [place] Creatinine and Glomerular filtration rate.predicted panel (S/P/Bld) 106 mL/min/1.73m??? Normal >=60 [facility] Comment on above: Order Comment: Jarek leger Type: BLOOD SPECIMEN Ordering Facility: [facility] Address: [address] [place] [address] Result Comment: Estefanía mated Glomerular Filtration Rate [...] GFR. Performed By: #### 2 4323-8 #### [facility] CLIA [id number] [address] [facility] [place] [address] [place] Glucose [Mass/Vol] 98 mg/dL Normal 74-99 [facility] Comment on above: Order Comment: Jarek leger Type: BLOOD SPECIMEN Ordering Facility: [facility] Address: [address] [place] [address] Result Comment: The [place] Diabetes Association (ADA) provides guidance for cutoff [...] Standards of Medical Care in Diabetes 2016, [place] Diabetes Association. Diabetes Care. 2016.39(Suppl 1). Performed By: #### 2 4323-8 #### [facility] CLIA [id number] [address] [place] [address] [place] Potassium [Moles/Vol] 4.3 mmol/L Normal 3.7-5.1 [facility] Comment on above: Order Comment: Speci men Type: BLOOD SPECIMEN Ordering Facility: [facility] Address: [address] [place] [address] Performed By: #### 2 4323-8 #### [facility] CLIA [id number] [address] [place] [address] [place] Protein [Mass/Vol] 7.3 g/dL Normal 6.3-8.0 [facility] Comment on above: Order Comment: Speci men Type: BLOOD SPECIMEN Ordering Facility: [facility] Address: [address] [place] [address] Performed By: #### 2 4323-8 #### [facility] IA [id number] [address] [place] [address] [place] Sodium [Moles/Vol] 141 mmol/L Normal 136-144 [facility] Comment on above: Order Comment: Speci men Type: BLOOD SPECIMEN Ordering Facility: [facility] Address: [address] [place] [address] Performed By: #### 2 4323-8 #### [facility] CLIA [id number] [address] [place] [address] [place] Urea nitrogen [Mass/Vol] 11 mg/dL Normal 7-21 [facility] Comment on above: Order Comment: Speci men Type: BLOOD SPECIMEN Ordering Facility: [facility] Address: [address] [place] [address] Performed By: #### 2 4323-8 #### [facility] CLIA [id number] [address] [place] [address] [place] Follicle Diameter USon 02-22 Indication Follicle monitoring Impression Right Ovary: [...] free fluid visualized Performed By: Cornelia Macario; MS Read By: Vanessa Vo M.D. MATERNAL MEDICINE [facility] Radiology Study observation (narrative) [facility] HbA1c (Bld)on 02-23-2024 Average glucose Estimated from glycated hemoglobin (Bld) [Mass/Vol] 111 mg/dL [facility] Comment on above: eAG: (Estimated aver age glucose) is a calculated value from HgbA1c and is automotive leasing sales representative of the average blood glucose level in the last 2-3 month period. HbA1c (Bld) [Mass fraction] 5.5 % 4.3 - 5.6 % [facility] Comment on above: [place] Diabetes As sociation guidelines indicate that patients with HgbA1c in the range 5.7-6.4% are at increased risk for development of diabetes, and intervention by lifestyle modification may be beneficial. HgbA1c greater or equal to 6.5% is considered diagnostic of diabetes. [facility] Average glucose Estimated from glycated hemoglobin (Bld) [Mass/Vol] 111 mg/dL Normal [facility] Comment on above: Order Comment: Jarek leger Type: BLOOD SPECIMEN Ordering Facility: [facility] Address: [address] [place] [address] Result Comment: eAG: (Estimated average glucose) is a calculated value from HgbA1c and is automotive leasing sales representative of the average blood glucose level in the last 2-3 month period. Performed By: #### 5 5454-3 #### [facility] CLIA [id number] [address] [place] [address] [place] [facility] HbA1c (Bld) [Mass fraction] 5.5 % Normal 4.3-5.6 [facility] Comment on above: Order Comment: Jarek leger Type: BLOOD SPECIMEN Ordering Facility: [facility] Address: [address] [place] [address] Result Comment: [place] Diabetes Association guidelines indicate that patients with HgbA1c in the range 5.7-6.4% are at increased risk for development of diabetes, and intervention by lifestyle modification may be beneficial. HgbA1c greater or equal to 6.5% is considered diagnostic of diabetes. Performed By: #### 5 5454-3 #### [facility] CLIA [id number] [address] [place] [address] [place] VITAMIN B12on 02-23-2024 Cobalamin (Vitamin B12) [Mass/Vol] 567 pg/mL 232 - 1245 pg/mL [facility] VITAMIN D 25 HYDROXYon 02-22 25-hydroxyvitamin D3 [Mass/Vol] 49.3 ng/mL 31.0 - 80.0 ng/mL [facility] Comment on above: Classification of 25 [place] Vitamin D status: Deficiency/Insufficiency: < or = 30 ng/ml. Sufficiency/Optimal Levels: 31-80 ng/mL Toxicity: > 100 ng/mL. Test performed by chemiluminescent immunoassay. Vit B12 [facility] 1127-2 024 Cobalamin (Vitamin B12) [Mass/Vol] 567 pg/mL Normal 232-1245 [facility] Comment on above: Order Comment: Speci men Type: BLOOD SPECIMEN Ordering Facility: [facility] Address: [address] [place] [address] Performed By: #### 2 132-9 #### [facility] CLIA [id number] [address] [place] [address] [facility] Alexnadra 02-21-2024 JORDANN Telephone (REIBD) LISSA RIVAS ([id number]) 1995 F Date Time Provider Department 02/21/24 FEDE HAIRSTON During your visit today, we recorded the following information about you: Joanna Garces 02/21/2024 10:32 AM Signed Needs hcg [facility] Ortega Morrissey APRN.CNP 02/21/2024 10:40 AM Signed Medication send the [facility] specialty on 02/17. Ortega Morrissey APRN.CNP February 21, 2024 10:39 AM Allergies As of Date: 02/21/2024 (No Known Allergies) Date Reviewed: 11/22/2023 Reviewed by: Ortega Morrissey APRN.CNP - Fully Assessed Reason for Visit: needs [...] Encounter Status:Closed by ORTEGA MORRISSEY on 02/21/24 [facility] [id number] 02-17-2024 HNO ID: [id number] Author: FEDE HAIRSTON MD Service: ? Author [...] visit. 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 I spent a total of 30 minutes on the date of the service which included preparing to see the patient, [id number] patient care, counseling and educating the patient/family/caregi deborah, ordering medications, tests, or procedures, communicating results to the patient/family/caregi deborah, and care coordination (not separately reported). Kim Khan MD [facility] APTIMA MULTITEST VAGINALon 1 04-17-2023 [facility] No Panel Informationon 02-15 APTIMA BACTERIAL VAGINOSIS Not detected [facility] APTIMA SHANTA GLABRATA Not detected [facility] APTIMA CHLAMYDIA TRACHOMATIS 5 ppm [facility] APTIMA CHLAMYDIA TRACHOMATIS Not detected ppm [facility] CNPNon 02-15-2024 [facility] Telephone (REIBD) LISSA RIVAS ([id number]) 1995 F Date Time Provider Department 02/15/24 FEDE HAIRSTON REIBD During your visit today, we recorded the following information about you: Ayanna Wise 02/15/2024 11:37 AM Signed Patient states this past month in January she did not ovulate so she did not go through with iui, please follow up with patient. Ortega Morrissey APRN.CNP 02/15/2024 2:01 PM Addendum Spoke with Thao, states she was using OPKs last cycle and never got an LH surge. Had two weeks of high fertility but no peak. Cycle was normal length LMP 02/12 Would like to do monitoring/trigger this cycle. Flowsheet/Episode updated. Ortega Morrissey APRN.CNP February 15, 2024 1:49 PM Please schedule the patient for the following- Location: [facility] Provider: nurse Visit type: midcycle Reason for [...] cycle day 3-7Disp: 10 tabletRfl: 2 FOLLICULAR [facility] [[id number]] Order #: [id number]: 1 FUTURE Prescriptions as of 02/15/2024 - [...] Status:Closed by ORTEGA MORRISSEY on 02/15/24 Normal [facility] POCT trichomonas manually barry david 02-15-2024 Bacterial vaginosis and vaginitis DNA panel Probe+sig amp (Vag fld) Negative Negative [facility] Interpretation and review of laboratory results Normal [facility] Trichomonas, UA Negative [facility] Yeast Negative [facility] [...] Not Available Comment on above: Order Comment: Haileypia josefina is working with reproductive specialist at [facility] and needs MRI done within the next 13 days. If [facility] not able to accommodate her, anywhere that is able to schedule within that timeframe would be fine. Alexandra 01-14-2024 [facility] Telephone (REIBD) LISSA RIVAS ([id number]) 1995 F Date Time Provider Department 01/14/24 ORTEGA MORRISSEY REPEDRO During your visit today, we recorded the following information about you: Keren Carcamo 01/14/2024 9:04 AM Signed Pt started cycle 01/12 and would like to discuss plan for scheduling iui Ortega Morrissey APRN.TELEVISION WRITER 01/14/2024 4:18 PM Signed Spoke with Lissa, She is planning to use OPK only this cycle. Jeferson call with LH surge. Ortega Morrissey APRN.TELEVISION WRITER January 14, 2024 4:17 PM Allergies As of Date: 01/14/2024 (No Known Allergies) Date Reviewed: 11/22/2023 Reviewed by: Ortega Morrissey APRN.TELEVISION WRITER - Fully Assessed Reason for Visit: iui [...] Encounter Status:Closed by ORTEGA MORRISSEY on 01/14/24 S[facility] Mando 12-31-2023 CNOV Office Visit (REIAV) LISSA RIVAS ([id number]) 1995 F Date Time Provider Department 12/31/23 10:00 AM ORTEGA MORRISSEY During your visit today, we recorded the following information about you: Last Period 12/12/23 Cruz Prescott MA 12/31/2023 10:07 AM Signed Legal Associate offered: Patient declines. Ortega Morrissey APRN.CNP 12/31/2023 [...] Cycle Day: 20 Last menstrual period: 12/12/2023 [place] Protocol: UNIVERSAL PROTOCOL / SAFETY CHECKLIST Procedure [...] and call with results. SIGNATURE: Ortega Morrissey APRN.JORDAN PATIENT NAME: Lissa Rivas DATE: December 31, 2023 TIME: 10:25 AM Referring Provider: SELF [[id number]] Allergies As of Date: 12/31/2023 (No Known Allergies) Date Reviewed: 11/22/2023 Reviewed by: Ortega Morrissey APRN.CNP - Fully Assessed Reason for Visit: IUI [...] 08/17/2023 Visit Notes: >> Cruz Prescott MA Fri Dec 31, 2023 10:07 AM Status: Signed Legal Associate offered: Patient declines. Encounter Status:Closed by ORTEGA [facility]ORRISSEY on 12[facility] Nurse Visit (ASHLYNV) LISSA RIVAS ([id number]) 1995 F Date Time Provider Department 12/21/23 [...] plan provided to patient via a Fertility member services coordinator. MD Darrell Branch Laura, ARIC 12/21/2023 2:32 PM Signed pt using LH surge strips and will call to irvin Grewal RN December 21, 2023 2:32 PM Referring Provider: ORTEGA MORRISSEY [[id number]] Allergies As of Date: 12/21/2023 (No Known Allergies) Date Reviewed: 11/22/2023 Reviewed by: Ortega Morrissey APRN.TELEVISION WRITER - Fully Assessed Visit Diagnosis:Female infertility [N97.9] Order(s):FOLLICULAR US I [[id number]] Order #: [id number]. #:[id number] IEWPOINTQty: 1 Prescriptions as of 12/21/2023 - [...] Status:Closed by ROBIN GREWAL on 12/21/23 [facility] Follicle Diameter USon 12-20 Indication MIdcycle, Follicle [...] free fluid visualized Performed By: Cornelia Macario; [facility] Read By: Fede Hairston M.D. MATERNAL MEDICINE [facility] Radiology Study observation (narrative) Theresa [facility] 12-13-2023 [facility] Telephone (REIBD) LISSA RIVAS ([id number]) 1995 F Date Time Provider Department 12/13/23 FEDE HAIRSTON During your visit today, we recorded the following information about you: Ortega Morrissey APRN.CNP 12/13/2023 4:49 PM Signed LMP 12/11 Plan: Let 5mg, trigger, IUI#2 Flowsheet/episode created Ortega Morrissey APRN.CNP December 13, 2023 4:42 PM Please schedule the patient for the following- Location: [place] Provider: Nurse Visit type: Midcycle Reason for visit/appointment notes: Midcycle Date: 12/20 Time (requested): 730 If slot is full, please schedule the closest open slot. Call to patient needed: no Allergies As of Date: 12/13/2023 (No Known Allergies) Date Reviewed: 11/22/2023 Reviewed by: Ortega Morrissey APRN.CNP - Fully Assessed Reason for Visit: LMP 12/12/23/ set up monitored cycle [Other] Patient Update [1234] Primary Visit Diagnosis:Female infertility [N97.9] Order(s):FOLLICULAR [facility] [[id number]] Order #: [id number]: 1 FUTURE Choriogonadotropin Pam,HumRec (OVIDREL) 250 mcg/0.5 [...] Encounter Status:Closed by ORTEGA MORRISSEY on 12/13/23 [facility] CNOVon 11-28-2023 CNOV Office Visit (REIBD) LISSA RIVAS ([id number]) 1995 F Date Time Provider Department 11/28/23 11:00 AM DESHAWN RIOJAS During your visit today, we recorded the following information about you: Evangelina Painter 11/28/2023 10:54 AM Signed IUI specimen released to provider Evangelina Painter November 28, 2023 10:48 AM Deshawn Riojas MD 11/28/2023 10:54 AM Signed WHI GAYATHRI IUI PROCEDURE NOTE Date: 11/28/2023 Primary Proceduralist: Deshawn Riojas MD, Sandra Cruz MD Consents and Labels Consent Signed: Informed Consent obtained and on the chart Labels Verified With Patient: Yes Indications: Lissa Rivas, is a 28 year old female here today for intrauterine insemination. IUI # . Cycle Day: 13 Last menstrual period: 11/12/2023 [place] Protocol: UNIVERSAL PROTOCOL / SAFETY CHECKLIST Procedure [...] # 44.8 million Referring Provider: DESHAWN RIOJAS [[id number]] Allergies As of Date: 11/28/2023 (No Known Allergies) Date Reviewed: 11/22/2023 Reviewed by: Ortega Morrissey APRN.TELEVISION WRITER - Fully Assessed Primary Visit Diagnosis:Female infertility [...] Encounter Status:Closed by DESHAWN RIOJAS on 11/28/23 [facility] ([facility] LISSA RIVAS ([id number]) 1995 F Date Time Provider Department 11/22/23 7:15 AM NURSE GAYATHRI [facility] GRETA TOMLINSON During your visit today, we recorded the following information about you: Erma Donis RN 11/22/2023 3:44 PM Signed Lissa Rivas is here today for a midcycle scan. Lead follicle: 21mm vs CL Eram Donis RN November 22, 2023 8:44 AM Message sent to Dr. Howard to see if patient needs labs based on scan. Erma Donis RN November 22, 2023 8:09 AM Labs ordered and called patient. She will drive back to [place] now to get done. Erma Donis RN November 22, 2023 8:45 AM 11/22/2023 11 trigger 25+<10mm 21.2, 25+<10mm 5.6mm tri p4=0.3 lh=5.1 JR 11/23/2023 12 11/24/2023 13 IUI RN called patient, name and verified. Plan given for midcycle per physician, see flowsheet for details. [employer] message sent. Medications reviewed and verified, instructions given. Patient denies any questions or concerns. Erma Donis RN November 22, 2023 12:53 PM Referring Provider: ORTEGA MORRISSEY [[id number]] Allergies As of Date: 11/22/2023 (No Known Allergies) Date Reviewed: 11/22/2023 Reviewed by: Ortega Morrissey APRN.TELEVISION WRITER - Fully Assessed Visit Diagnosis:Female infertility [N97.9] Order(s):FOLLICULAR US WHI [[id number]] Order #: [id number]. #:[id number] IEWPOINTQty: 1 PROGESTERONE [SQPROG] Order #: [id number] FUTURE LUTEINIZING HORMONE [SQLH] Order #: [id number] FUTURE Prescriptions as of 11/22/2023 - progesterone [...] Status:Closed by JAILENE HOWARD on 11/22/23 Normal [facility] Follicle Diameter USon 11-21 Indication Follicle monitoring, [...] Performed By: Cornelia Macario; RDMS Read By: Jailene Howard M.D. MATERNAL MEDICINE [facility] Radiology Study observation (narrative) [facility] LH SerPl-aCncon 11-22-2023 Lutropin Qn 5.1 m[IU]/mL Normal See comment [facility] Comment on above: Order Comment: Speci men Type: BLOOD SPECIMEN Ordering Facility: [facility] Address: [address] [place] [address] Result Comment: Refe rence range: Follicular: 2.4-12.6 mIU/mL Midcycle: 14.0-95.6 mIU/mL Luteal: 1.0-11.4 mIU/mL Post Kelsey: 7.7-58.5 mIU/mL Performed By: #### 2 839-9, 98427-4 #### [facility] CLIA [id number] [facility]. [address] OF [facility] LUTEINIZING HORMONEon 2023 Lutropin Qn 5.1 m[IU]/mL See comment mIU/mL [facility] Comment on above: Reference range: Follicular: 2.4-12.6 mIU/mL Midcycle: 14.0-95.6 mIU/mL Luteal: 1.0-11.4 mIU/mL Post Kelsey: 7.7-58.5 mIU/mL No Panel Informationon 11-21 [facility] PROGESTERONEon 11-22-2023 Progesterone [Mass/Vol] 0.3 ng/mL See comment [facility] Comment on above: Menstrual Cycle Prog esterone Reference Ranges: Follicular: <1.0 ng/mL Ovulation: <12.1 ng/mL Luteal: 1.8 to 23.9 ng/mL. Progesterone Reference Ranges vary by gestational period: First Trimester: 11.0 to 44.3 ng/mL Second Trimester: 25.4 to 83.3 ng/mL Third Trimester: 58.7 to 214 ng/mL Post menopausal Progesterone: <0.5 ng/mL Reference: 1. Progesterone (Progesterone III) [package insert V 1.0 Australian]. [facility] [facility], [place]. December 2014. Progest [facility] 11-21-2 024 Progesterone [Mass/Vol] 0.3 ng/mL Normal See comment [facility] Comment on above: Order Comment: Speci men Type: BLOOD SPECIMEN Ordering Facility: [facility] Address: [address] [place] [address] Result Comment: Mens trual Cycle Progesterone Reference Ranges: Follicular: <1.0 ng/mL Ovulation: <12.1 ng/mL Luteal: 1.8 to 23.9 ng/mL. Progesterone Reference Ranges vary by gestational period: First Trimester: 11.0 to 44.3 ng/mL Second Trimester: 25.4 to 83.3 ng/mL Third Trimester: 58.7 to 214 ng/mL Post menopausal Progesterone: <0.5 ng/mL Reference: 1. Progesterone (Progesterone III) [package insert V 1.0 Australian]. [employer], [place]. December 2014. Performed By: #### 2 839-9, 06326-7 #### [facility] CLIA [id number] [facility]. [place], [place] [id number] [place] [address] [place] Alexandra 11-12-2023 CNPN Telephone (REIBD) LISSA RIVAS ([id number]) 1995 F Date Time Provider Department 11/12/23 [...] November 12, 2023 6:07 PM Ortega Morrissey APRN.TELEVISION WRITER 11/15/2023 9:46 AM Signed Plan: Let 5mg/trigger/IUI #2 Ortega Morrissey APRN.JORDAN November 15, 2023 9:39 AM Please schedule the patient for the following- Location: [place] Provider: Nurse Visit type: Follicular scan Reason [...] testing [Z31.49] Other Visit Diagnosis:Female infertility [N97.9] Order(s):FOLLICULAR US WHI [[id number]] Order #: [id number]: 1 FUTURE Prescriptions as of 11/15/2023 - [...] Encounter Status:Closed by ORTEGA MORRISSEY on 11/15/23 [facility] CNOVon 10-26-2023 CNOV Office Visit (REIAV) LISSA RIVAS ([id number]) 1995 F Date Time Provider Department 10/26/23 [...] Cycle Day: 15 Last menstrual period: 10/12/2023 [place] Protocol: UNIVERSAL PROTOCOL / SAFETY CHECKLIST Procedure [...] and call with results. SIGNATURE: Ortega Morrissey APRN.TELEVISION WRITER PATIENT NAME: Lissa Rivas DATE: October 26, 2023 TIME: 11:36 AM Referring Provider: ORTEGA MORRISSEY [[id number]] Allergies As of Date: 10/26/2023 (No Known [...] Encounter Status:Closed by ORTEGA MORRISSEY on 10/26/23 [facility] LISSA RIVAS ([id number]) 1995 F Date Time Provider Department 10/22/23 7:00 AM NURSE GAYATHRI [facility] REJ REIAV During your visit today, we recorded the following information about you: Erma Donis, ARIC 10/22/2023 1:41 PM Signed Lissa Rivas is here today for a midcycle scan. Lead follicle: 14 Erma Donis RN October 22, 2023 7:25 AM RN called patient, name and verified. Plan given for midcycle per physician, see flowsheet for details. [employer] message sent. Medications reviewed and verified, instructions [...] Trevizo MD, FLACO Referring Provider: ORTEGA MORRISSEY [[id number]] Allergies As of Date: 10/22/2023 (No Known Allergies) Date Reviewed: 08/18/2023 Reviewed by: Cruz Prescott MA - Fully Assessed Visit Diagnosis:Female infertility [N97.9] Order(s):FOLLICULAR US [facility] [[id number]] Order #: [id number]. #:[id number] IEWPOINTQty: 1 Prescriptions as of 10/22/2023 - [...] Status:Closed by ERMA DONIS on 10/22/23 Normal [facility] Follicle Diameter USon 10-21 Indication Baseline TV [...] Read By: Ayanna Trevizo MD MATERNAL MEDICINE [facility] Radiology Study observation (narrative) Theresa [facility] 10-20-2023 JORDANN Telephone (REIBD) LISSA RIVAS ([id number]) 1995 F Date Time Provider Department 10/20/23 SELF REIBD During your visit today, we recorded the following information about you: Keren Carcamo 10/20/2023 2:26 PM Signed Pts pharmacy called and would like to know when she needs to order trigger shot Ani Stovall APRN.CNP 10/20/2023 3:11 PM Signed patient instructed to order trigger now so that she has it by Wednesday Ani Stovall APRN.TELEVISION WRITER October 20, 2023 3:10 PM Allergies As [...] Encounter Status:Closed by ANI STOVALL on 10/20/23 [facility] CNPN Telephone (REIBD) LISSA RIVAS ([id number]) 1995 F Date Time Provider Department 10/12/23 [...] schedule the patient for the following- [place] Provider: nurse Visit type: mid cycle Reason [...] - Fully Assessed Reason for Visit: Ortega lmp today/re us day 11-13 for iui [Other] Primary Visit [...] Status:Closed by ORTEGA MORRISSEY on 10/12/23 Normal [facility] B-HCG SerPl-aCncon HCG.beta subunit Qn m[IU]/mL Normal <5.0 [facility] Comment on above: Order Comment: Speci men Type: BLOOD SPECIMENOrdering Facility: [facility] Address: [address] [place] [address] Result Comment: Rich ball Performed By: #### 2 1198-7 ####[facility] [id number] [place] [address] [place] C. trachomatis+N. gonorrhoea e DNA JANESSA+probe Ql (Unsp spec)on 09-13-2023 C. trachomatis rRNA JANESSA+probe Ql (Unsp spec) Negative Normal Negative for Chlamydia trachomatis by amplificaton [facility] Comment on above: Order Comment: Speci men Type: URINE SPECIMENOrdering Facility: [facility] Address: [address] [place] [address] Performed By: #### 3 6902-5 ####[facility] [id number] [place] [address] [place] N. gonorrhoeae rRNA JANESSA+probe Ql (Unsp spec) Negative Normal Negative for Neisseria gonorrhoeae by amplification [facility] Comment on above: Order Comment: Speci men Type: URINE SPECIMENOrdering Facility: [facility] Address: [address] [place] [address] Performed By: #### 3 6902-5 ####[facility] LABCLIA [id number] [place] [address] [place] HBV surface Ag Ser Qlon 08-27 HBV surface Ag Ql (S) Negative Normal Negative [facility] Comment on above: Order Comment: Speci men Type: BLOOD SPECIMENOrdering Facility: [facility] Address: [address] [place] [address] Performed By: #### 3 1201-7, 69423-5, 5195-3 ####[facility] LABCLIA [id number] [place] [address] [place] HCV Ab Ser Qlon 09-13-2023 HCV Ab Ql (S) Negative Normal Negative [facility] Comment on above: Order Comment: Speci men Type: BLOOD SPECIMENOrdering Facility: [facility] Address: [address] [place] [address] Result Comment: The result suggests no evidence of active infection with Hepatitis C virus. Should recent infection be suspected, repeat testing may be considered 4-6 weeks after this draw. Performed By: #### 1 6128-1 ####[facility] LABCLIA [id number] [place] [address] [place] HIV 1+2 Ab IA Qlon HIV 1 and 2 Ab IA.rapid Nom (S/P/Bld) Normal [facility] Comment on above: Order Comment: Speci men Type: BLOOD SPECIMENOrdering Facility: [facility] Address: [address] [place] [address] Result Comment: Test not indicated. Performed By: #### 3 1201-7, 76734-0, 5195-3 ####[facility] LABCLIA [id number] [place] [address] [place] HIV 1+2 Ab+HIV1 p24 Ag IA Ql Non-Reactive Normal Nonreactive [facility] Comment on above: Order Comment: Speci men Type: BLOOD SPECIMENOrdering Facility: [facility] Address: [address] [place] [address] Performed By: #### 3 1201-7, 35535-8, 5195-3 ####[facility] LABCLIA [id number] [place] [address] [place] HIV immunoassay testing algorithm interpretation (S/P/Bld) [Interp] Normal [facility] Comment on above: Order Comment: Speci men Type: BLOOD SPECIMENOrdering Facility: [facility] Address: [address] [place] [address] Result Comment: No e vidence of HIV-1 or HIV-2 infection. Should recent infection be suspected, repeat testing may be considered 2-3 weeks after this draw. [place] Rev. Code 3701.243(E): This information has been [...] or diagnoses. Performed By: #### 3 1201-7, 81533-1, 5195-3 ####[facility] LABCLIA [id number] [place] [address] [place] Progest SerPl-mCncon 09-12- 024 Progesterone [Mass/Vol] 0.3 ng/mL Normal See comment [facility] Comment on above: Order Comment: Speci men Type: BLOOD SPECIMENOrdering Facility: [facility] Address: [address] [place] [address] Result Comment: Mens trual Cycle Progesterone Reference Ranges: Follicular: <1.0 ng/mL Ovulation: <12.1 ng/mL Luteal: 1.8 to 23.9 ng/mL. Progesterone Reference Ranges vary by gestational period: First Trimester: 11.0 to 44.3 ng/mL Second Trimester: 25.4 to 83.3 ng/mL Third Trimester: 58.7 to 214 ng/mL Post menopausal Progesterone: <0.5 ng/mL Reference: 1. Progesterone (Progesterone III) [package insert V 1.0 Australian]. [facility], [place]. December 2014. Performed By: #### 2 839-9 ####[facility] LABIA [id number] [place] [address] [place] Reagin and Treponema pallidu m IgG and IgM [Interp]on 09-13-2023 T. pallidum IgG+IgM IA Ql (S) Non-Reactive Normal Nonreactive [facility] Comment on above: Order Comment: Speci men Type: BLOOD SPECIMENOrdering Facility: [facility] Address: [address] [place] [address] Performed By: #### 3 1201-7, 98374-4, 5195-3 ####[facility] [id number] [place] [address] [place] Reagin+T pallidum IgG+IgM Se rPl-Impon 09-13-2023 Reagin and Treponema pallidum IgG and IgM [Interp] Cannot exclude recent Treponemal infection if specimen collected within 7-10 days after appearance of suspect lesions or 2-3 weeks after an exposure. Clinical correlation is required. Normal [facility] Comment on above: Order Comment: Speci men Type: BLOOD SPECIMENOrdering Facility: [facility] Address: [address] [place] [address] Performed By: #### 3 1201-7, 49810-4, 5195-3 ####[facility] [id number] [place] [address] [place] CNPAlissa 09-08-2023 CNPN Telephone (REIBD) CRYSTALSOPHIELISSA ([id number]) 1995 F Date Time Provider Department 09/08/23 FEDE HAIRSTON During your visit today, we recorded the following information about you: Ortega Spivey 09/08/2023 9:58 AM Signed Iui Patient called in regards to her lab results Randee Myers RN 09/09/2023 8:25 AM Signed Called the patient she verified her name and date of last period was July 23 took no fertility meds that cycle had labs done they are neg. I advised we will send prove to get her period started I advised [...] Status:Closed by ORTEGA MORRISSEY on 09/09/23 Normal [facility] B-HCG SerPl-aCncon 4 HCG.beta subunit Qn m[IU]/mL Normal <5.0 [facility] Comment on above: Order Comment: Speci men Type: BLOOD SPECIMENOrdering Facility: [facility] Address: [address] [place] [address] [place] [address] Result Comment: Negmanny tive Performed By: #### 2 1198-7 ####[facility] LABCLIA [id number] [facility] [id number] [place] [facility] 09-[facility]-2023 CNPN Telephone (REIBD) CRYSTALLISSA ([id number]) 1995 F Date Time Provider Department 09/02/23 [...] Diagnosis:Secondary amenorrhea [N91.1] Order(s):PROGESTERONE [SQPROG] Order #: [id number] FUTURE HCG QUANTITATIVE [SQHCGQT] Order #: [id number] FUTURE Prescriptions as of 09/02/2023 - letrozole [...] Status:Closed by ORTEGA MORRISSEY on 09/02/23 Normal [facility] Progest Laurent-Ericksonon 024 Progesterone [Mass/Vol] 0.2 ng/mL Normal See comment [facility] Comment on above: Order Comment: Speci men Type: BLOOD SPECIMENOrdering Facility: [facility] Address: [address] [place] [address] [place] [address] Result Comment: Mens trual Cycle Progesterone Reference Ranges: Follicular: <1.0 ng/mL Ovulation: <12.1 ng/mL Luteal: 1.8 to 23.9 ng/mL. Progesterone Reference Ranges vary by gestational period: First Trimester: 11.0 to 44.3 ng/mL Second Trimester: 25.4 to 83.3 ng/mL Third Trimester: 58.7 to 214 ng/mL Post menopausal Progesterone: <0.5 ng/mL Reference: 1. Progesterone (Progesterone III) [package insert V 1.0 Australian]. [facility], [place]. December 2014. Performed By: #### 2 839-9 ####[facility] LABCLIA [id number] [address] 08-19-2023 HNO ID: [id number] Author: FEDE HAIRSTON MD Service: ? Author [...] Comments: None Kim Khan MD 08/19/2023 Normal [facility] CONSULT PROGon 08-19-2023 CONSULT PROG HNO ID: [id number] Author: FEDE HAIRSTON MD Service: ? Author Type: Physician Type: Consult Progress Note Filed: 08/19/2023 11:12 Note Text: [facility] Date: 08/19/2023 Consultation Requested [...] appointment with cancer genetic team soon. 5. Jini - test neg for all mutations. 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 Normal [facility] CNOVon 08-17-2023 CNOV Office Visit (OTMNCA ) LISSA RIVAS ([id number]) 1995 F Date Time Provider Department 08/17/23 11:00 AM МАРИЯ LABOY During your visit today, we recorded the following information about you: Raina Samuels, [place] 08/17/2023 10:48 AM Signed Tobacco Use: Never [...] while trying for , who presents to [facility] care. Her genetic testing indicates [...] Procedure Laterality Date EYE SURGERY HX 03/2020 [facility] Social History Tobacco Use Smoking status: Never [...] no masses (more content not included)... Normal [facility] CNOV Office Visit (ENDOMN ) LISSA RIVAS ([id number]) 1995 F Date Time Provider Department 08/17/23 10:00 AM MIRTA GALLAGHER ENDOELLY During your visit today, we recorded the following information about you: Pulse Blood pressure Weight 73/minute 129/79 104.1 kg Latosha Wesley MA 08/17/2023 9:53 AM Signed Thank you for choosing the [facility] Department of Endocrinology, Diabetes and Metabolism. Did you know that you need to call 48 hours in advance of your scheduled visit, if you are unable to make your appointment? The Endocrinology and Metabolism [facility] thanks you for your commitment, because patients not showing to their appointment results in a lost opportunity for patients to receive [facility] health care at the [facility]. To Cancel an appointment, please choose one of the following: - Call the Appointment Call Center at [phone] - From [employer], Go to Appointments - Cancel Appts If cancelling, consider your need to reschedule to prevent further delays in your care. To Schedule an appointment, please choose one of the following: - Call the Appointment Call Center at [phone] - From [employer], Go to Appointments - Request an Appt [...] by neurodegenerat (more content not included)... Normal [facility] No Panel Informationon 08-16 Interpretation and review of laboratory results Normal [facility] T4 FREE/FREE THYROXINEon Free T4 [Mass/Vol] 1.1 ng/dL 0.9 - 1.7 ng/dL [facility] T4 Free SerPl-ncon 024 Free T4 [Mass/Vol] 1.1 ng/dL Normal 0.9-1.7 [facility] Comment on above: Order Comment: Speci men Type: BLOOD SPECIMENOrdering Facility: [facility] Address: [address] [place] [address] Performed By: #### 3 016-3, 3024-7 ####[facility] LABCLIA [id number] [place] [address] [place] THYROID PEROXIDASE ANTIBODYo n 08-17-2023 Interpretation and review of laboratory results Normal [facility] TPO Ab Qn 3.3 [IU]/mL [facility] Comment on above: Thyroid Peroxidase A ntibody test is used as an aid in diagnosis of autoimmune thyroid disease. Clinical correlation is required. [facility] TPO Ab Qn 3.3 [IU]/mL Normal <5.6 [facility] Comment on above: Order Comment: Jarek leger Type: BLOOD SPECIMENOrdering Facility: [facility] Address: [address] [place] [address] Result Comment: Thyr oid Peroxidase Antibody test is used as an aid in diagnosis of autoimmune thyroid disease. Clinical correlation is required. Performed By: #### M ICRO ####[facility] LABCLIA [id number] [facility] [id number] [place] [address] [place] THYROID STIMULATING HORMONEo n 08-17-2023 TSH Qn 2.690 m[IU]/L [facility] Comment on above: If the patient is pr egnant, TSH reference range varies by gestational period: First Trimester (weeks 9-12): 0.180-2.990 mIU/L Second Trimester: 0.110-3.980 mIU/L Third Trimester: 0.480-4.710 mIU/L Hang Ribeiro, et al. A Practical Approach for the Verifications and Determination of Site- and Trimester-Specific Reference Intervals for Thyroid Function tests in . Thyroid, 2019:29:3:412-420. Samuel Gerber et al. 2017 Guidelines of the [place] Thyroid Association for the Diagnosis and Management of Thyroid Disease during and the . Thyroid, 2017:27:3:315-389. TSH SerPl-aCncon 08-17-2023 TSH Qn 2.690 m[IU]/L Normal 0.270-4.200 [facility] Comment on above: Order Comment: Jarek leegr Type: BLOOD SPECIMENOrdering Facility: [facility] Address: [address] [place] [address] Result Comment: If t he patient is , TSH reference range varies by gestational period: First Trimester (weeks 9-12): 0.180-2.990 mIU/L Second Trimester: 0.110-3.980 mIU/L Third Trimester: 0.480-4.710 mIU/L Hang Ribeiro, et al. A Practical Approach for the Verifications and Determination of Site- and Trimester-Specific Reference Intervals for Thyroid Function tests in . Thyroid, 2019:29:3:412-420. Samuel Gerber, et al. 2017 Guidelines of the [place] Thyroid Association for the Diagnosis and Management of Thyroid Disease during and the . Thyroid, 2017:27:3:315-389. Performed By: #### 3 016-3, 3024-7 ####[facility] LABCLIA [id number] RYANAlyce [address] [place] CNNURSEon 07-29-2023 CNNURSE Nurse Visit (REIAV) LISSA RIVAS ([id number]) 1995 F Date Time Provider Department 07/29/23 12:45 PM NURSE GAYATHRI [facility] REJ REIAV During your visit today, we recorded the following information about you: Allergies As of Date: 07/29/2023 (No Known Allergies) Date Reviewed: 06/23/2023 Reviewed by: Radha Hawkins, RT(R) - Fully Assessed Reason for Visit: Nurse Visit [792] Primary Visit Diagnosis:Encounter for fertility testing [Z31.41] Other Visit Diagnosis:Pre-procedu re lab exam [Z01.812] Order(s):HCG QUAL UR B/O [[id number]] Order #: [id number] Prescriptions as of 07/29/2023 - letrozole (FEMARA) [...] Status:Closed by CRUZ PRESCOTT on 07/29/23 Normal [facility] HCG QUAL UR B/Oon 07-29-2023 Interpretation and review of laboratory results Normal [facility] status Negative neg - pos Theresa torres [facility] Quality Check Yes yes/no [facility] XR HYSTEROSALPINGOGRAMon XR HYSTEROSALPINGOGRAM * * *Final Report * * * DATE OF EXAM: Jul 29 2023 2:03PM VHX [id number] - XR HYSTEROSALPINGOGRAM / PROCEDURE REASON: [...] or left fallopian tube. IMPRESSION: Normal hysterosalpingogram. Business Unit Controller: [facility] Transcribe Date/Time: Aug 02 2023 4:22P Dictated by : ADRIANNA BAUMANN MD This examination was interpreted and the report reviewed and electronically signed by: ADRIANNA BAUMANN MD on Aug 02 2023 4:23PM EST [id number] N Normal [facility] CT ABDOMEN W IVCONon 024 CT ABDOMEN W IVCON * * *Final Report* * * DATE OF EXAM: Jun 23 2023 9:14AM [facility] 0533 - CT ABDOMEN W IVCON / [...] chest CT performed will be reported separately. Reliability Manager (topogram) images: No additional findings. IMPRESSION: 1. Hepatic steatosis. 2. No mass, lymphadenopathy or splenomegaly in the abdomen. Business Unit Controller: [facility] Transcribe Date/Time: Jun 23 2023 11:05A Dictated by : NICOLAS NICHOLSON MD This examination was interpreted and the report reviewed and electronically signed by: NICOLAS NICHOLSON MD on Jun 23 2023 11:28AM EST [id number] N Normal [facility] CT CHEST W IVCONon CT CHEST W IVCON * * *Final Report* * * DATE OF EXAM: Jun 23 2023 9:14AM [facility] 0539 - CT CHEST W IVCON / [...] wall is unremarkable. Upper abdomen: Dictated separately. Reliability Manager (topogram) images: No additional findings. IMPRESSION: No CT evidence of acute abnormality. Unremarkable chest CT, no findings of enlarged lymph nodes in the thorax. Business Unit Controller: [facility] Transcribe Date/Time: Jun 23 2023 9:13A Dictated by : JANI PACHECO MD This examination was interpreted and the report reviewed and electronically signed by: JANI PACHECO MD on Jun 23 2023 9:16AM EST [id number] N Normal [facility] CT NECK SOFT TISSUE W IVCONo n 06-23-2023 CT NECK SOFT TISSUE W IVCON * * *Final Report* * * DATE OF EXAM: Jun 23 2023 9:14AM [facility] 0013 - CT NECK SOFT TISSUE W [...] for mass or adenopathy in the neck. Business Unit Controller: [facility] Transcribe Date/Time: Jun 23 2023 11:23A Dictated by : SALVADOR GAINES MD This examination was interpreted and the report reviewed and electronically signed by: SALVADOR GAINES MD on Jun 23 2023 11:37AM EST [id number] N Normal [facility] METANEPHRINES, FREE PLASMAon 06-17-2023 METANEPHRINE, PLASMA 37 pg/mL Normal 12-67 [facility] Comment on above: Order Comment: Speci men Type: BLOOD SPECIMENOrdering Facility: [facility] Address: [facility] [place] [id number] Result Comment: Refe rohith Ranges: Hypertensive adult > or = 18 yrs old: 12-72 pg/mL Normotensive adult > or = 18 yrs old: 12-67 pg/mL Normotensive children < 18 yrs old: 10-95 pg/mL Performed By: #### P METAN ####[facility] LABCLIA [id number] [place] [address] [place] NORMETANEPHRINE, PLASMA 67 pg/mL Normal 18-101 [facility] Comment on above: Order Comment: Speci men Type: BLOOD SPECIMENOrdering Facility: [facility] Address: [address] [place] [address] Result Comment: Refe rence Ranges: Hypertensive adult > or = 18 yrs old: 24-145 pg/mL Normotensive adult > or = 18 yrs old: 18-101 pg/mL Normotensive children < 18 yrs old: 22-83 pg/mL Methyldopa may cause false elevation of normetanephrine levels in this assay. If patient is on methyldopa, interpret results with caution. Performed By: #### P METAN ####[facility] LABIA [id number] [place] [address] [place] CNPAlissa 06-16-2023 [facility] Telephone (VAISHNAVI) LISSA RIVAS ([id number]) 1995 F Date Time Provider Department 06/16/23 [...] Мария Laboy. Patient will be updated via myChart when orders are placed for imaging. 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] Other Visit Diagnoses:Localized enlarged lymph nodes [R59.0] Intra-abdominal and pelvic swelling, mass and lump, unspecified site [R19.00] Order(s):METANEPHRINE S, FREE PLASMA [SQPMETAN] Order #: [id number] FUTURE CT NECK SOFT TISSUE W IVCON [[id number]] Order #: [id number] FUTURE iv contrast (will be provided with [...] 1 EachRfl: 0 CT CHEST W IVCON [[id number]] Order #: [id number] FUTURE CT ABDOMEN W IVCON [[id number]] Order #: [id number] FUTURE Prescriptions as of 06/16/2023 - iv [...] Encounter Status:Closed by FINA LIZAMA on 06/16/23 [facility] Alexandra 06-10-2023 CNPN Telephone ([facility]) LISSA RIVAS ([id number]) 1995 F Date Time Provider Department 06/10/23 ELSA PUENTES NYDIA During your visit today, we recorded the following information about you: Elsa PuentesBRIANArlin 06/14/2023 1:38 PM Addendum Patient name and was confirmed at initiation of discussion. Lissa Rivas's Integrated BRACAnalysis with Humberto through [employer] was positive for a pathogenic variant in [...] population without disease (benign polymorphism). Please see [facility] message for further discussion. CHRISTIE Magdaleno Licensed, [...] children. Elsa (more content not included)... Normal [facility] 05-25-2023 [facility] Telephone (REIBD) LISSA RIVAS ([id number]) 1995 F Date Time Provider Department 05/25/23 FEDE HAIRSTON During your visit today, we recorded the following information about you: Ayanna Wise 05/25/2023 9:59 AM Signed Valentin in [facility] pharmacy. Please follow up with patient. Randee Myers RN 05/25/2023 10:06 AM Signed Called the patient she verified her name and date of Patient needs refill of letrozole Has done 3 cycles of letrozole Randee Myers RN May 25, 2023 10:06 AM Ortega Morrissey APRN.CNM 05/25/2023 11:17 AM Signed The following approved [...] Encounter Status:Closed by ORTEGA MORRISSEY on 05/25/23 [facility] SEND OUT TST 1on 2023 REFERRAL LAB 1 [facility] Normal [facility] Comment on above: Order Comment: Speci men Type: BLOOD SPECIMENOrdering Facility: [facility] Address: [address] [place] [address] Performed By: #### M ISC1 ####NON-INTERFACED REF LABSCLIA SEE SCANNED RESULTS TEST 1 Integrated BRACAnalysis with [employer] [facility] Comment on above: Order Comment: Speci men Type: BLOOD SPECIMENOrdering Facility: [facility] Address: [address] [place] [id number] Performed By: #### M ISC1 ####NON-INTERFACED REF LABSCLIA SEE SCANNED RESULTS TEST RESULTS 1 View results in Scanned Documents link when available. Normal [facility] Comment on above: Order Comment: Speci men Type: BLOOD SPECIMENOrdering Facility: [facility] Address: [address] [place] [address] Performed By: #### M ISC1 ####NON-INTERFACED REF LABSCLIA SEE SCANNED RESULTS CNPNon 04-23-2023 CNPN Telephone (NYDIA) LISSA RIVAS ([id number]) 1995 F Date Time Provider Department 04/23/23 ELSA PUENTES During your visit today, we recorded the following information about you: Elsa Puentes LGC 05/17/2023 11:29 AM Signed Called patient to [...] NTHL1, PALB2, PDGFRA, PMS2, POLD1, POLE, POT1, BXJYD6U, PTCH1, PTEN, RAD51C, RAD51D, RB1, RET, SDHA, SDHAF2, SDHB, SDHC, SDHD, SMAD4, SMARCA4, SMARCB1, SMARCE1, STK11, SUFU, GAHR239, TP53, TSC1, TSC2, and VHL The Multi-Cancer [...] READY TO MOVE FORWARD. Elsa Puentes MS, [facility] Licensed, Certified Genetic Counselor Elsa Puentes LGC 05/17/2023 11:29 AM Signed Spoke to Thao [...] detect the familial mutation. 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 The patient was offered SDHA single site mutation analysis through [employer] or self pay Integrated BRACAnalysis with [employer] and SDHA single site mutation analysis through [employer]. After considering the risks, benefits, and limitations, the patient chose to pursue and provided informed consent for the following testing: SELF PAY Integrated [facility]ACAnalysis with [employer] and SDHA single site mutation analysis through [employer]. The [facility] panel includes APC, MICHAEL, AXIN2, BAP1, BARD1, BMPR1A, BRCA1, BRCA2, BRIP1, CDH1, CDK4, CDKN2A, CHEK2, CTNNA1, EGFR, EPCAM, FH, FLCN, GREM1, HOXB13, MEN1, MET, MITF, MLH1, MSH2, MSH3, MSH6, MUTYH, NTHL1, PALB2, PMS2, POLD1, POLE, PTEN, RAD51C, RAD51D, RET, SDHA, SDHB, SDHC, SDHD, SMAD4, STK11, TERT, TP53, TSC1, TSC2, and VHL [employer] looks at genes related to inherited breast, ovarian, pancreatic, prostate, colon, uterine, kidney, lung, endocrine, and stomach cancer, as well as inherited colon polyp and melanoma syndromes. We discussed that an NGS panel can rarely result in an unexpected finding which may or may not be related to the presenting phenotype. We discussed that [employer] may contact the patient by text or phone call regarding billing. The patient should watch for this communication and respond promptly. The patient should contact [employer] directly with any billing questions (ph. [phone]). Elsa Puentes MS, [facility] Licensed, Certified Genetic Counselor Allergies As of Date: 04/23/2023 (No Known Allergies) Date Reviewed: 01/04/2023 Reviewed by: Cruz Prescott Ma - Fully Assessed Reason for Visit: Follow Up [171] Primary Visit Diagnosis:Family history of cancer [Z80.9] Other Visit Diagnosis:Family history of gene mutation [Z84.81] Order(s):[facility] SEND OUT TST 1 [SQMISC1] Order #: [id number] FUTURE Prescriptions as of 05/17/2023 - letrozole [...] 04/23/2023 No (more content not included)... Normal [facility] Progest SerPl-mCncon 024 Progesterone [Mass/Vol] 4.8 ng/mL Normal See comment [facility] Comment on above: Order Comment: Speci men Type: BLOOD SPECIMENOrdering Facility: [facility] Address: [address] [place] [address] Result Comment: Mens trual Cycle Progesterone Reference Ranges: Follicular: <1.0 ng/mL Ovulation: <12.1 ng/mL Luteal: 1.8 to 23.9 ng/mL. Progesterone Reference Ranges vary by gestational period: First Trimester: 11.0 to 44.3 ng/mL Second Trimester: 25.4 to 83.3 ng/mL Third Trimester: 58.7 to 214 ng/mL Post menopausal Progesterone: <0.5 ng/mL Reference: 1. Progesterone (Progesterone III) [package insert V 1.0 [place]]. [employer], [place], [place]. December 2014. Performed By: #### 2 839-9 ####[facility] LABCLIA [id number] [place] [address] [place] PELVIC US WHIon 02-08-2023 [facility] Vital Signs Date Time Vital Sign Value Performing Clinician Facility 07-18-2024 09:20-0400 Body height 160 cm Lito Velazquez MD Work Phone: [facility] 07-18-2024 09:20-0400 Body mass index (BMI) [Ratio] 40.03 kg/m2 Lito Velazquez MD Work Phone: [facility] 07-18-2024 09:20-0400 Body weight 102.51 kg Lito Velazquez MD Work Phone: [facility] 07-18-2024 09:20-0400 Diastolic blood pressure 78 mm[Hg] Lito Velazquez MD Work Phone: [facility] 07-18-2024 09:20-0400 Heart rate 90 /min Lito Velazquez MD Work Phone: [facility] 07-18-2024 09:20-0400 SaO2% (BldA) [Mass fraction] 98 % Lito Velazquez MD Work Phone: [facility] 07-18-2024 09:20-0400 Systolic blood pressure 128 mm[Hg] Lito Velazquez MD Work Phone: [facility] 05-23-2024 16:00-0500 Body height 160 cm Andrew Ferrer DPM Work Phone: [facility] 05-23-2024 16:00-0500 Body mass index (BMI) [Ratio] 38.83 kg/m2 Andrewamrita Ferrer DPM Work Phone: [facility] 05-23-2024 16:00-0500 Body weight 99.43 kg Andrew Ferrer DPM Work Phone: [facility] 03-08-2024 10:25-0500 Body height 160 cm Gabriel Roof DO Work Phone: [facility] 03-08-2024 10:25-0500 Body mass index (BMI) [Ratio] 40.03 kg/m2 Gabriel Roof DO Work Phone: [facility] 03-08-2024 10:25-0500 Body temperature 97.39 [degF] Gabriel Roof DO Work Phone: [facility] 03-08-2024 10:25-0500 Body weight 102.51 kg Gabriel Roof DO Work Phone: [facility] 03-08-2024 10:25-0500 Diastolic blood pressure 90 mm[Hg] Gabriel Roof DO Work Phone: [facility] 03-08-2024 10:25-0500 Systolic blood pressure 128 mm[Hg] Gabriel Roof DO Work Phone: [facility] 02-15-2024 15:12-0500 Body height 160 cm Robles Goldsmith DO Work Phone: [facility] 02-15-2024 15:12-0500 Body mass index (BMI) [Ratio] 38.26 kg/m2 Robles Goldsmith DO Work Phone: [facility] 02-15-2024 15:12-0500 Body weight 97.98 kg Robles Goldsmith DO Work Phone: [facility] 02-15-2024 15:12-0500 Diastolic blood pressure 84 mm[Hg] Robles Goldsmith DO Work Phone: [facility] 02-15-2024 15:12-0500 Systolic blood pressure 136 mm[Hg] Robles Goldsmith DO Work Phone: [facility] 08-17-2023 10:02-0400 Body mass index (BMI) [Ratio] 40.65 kg/m2 Mirta Gallagher MD Work Phone: [facility] 08-17-2023 10:02-0400 Body weight 104.1 kg Mirta Gallagher MD Work Phone: [facility] 08-17-2023 10:02-0400 Diastolic blood pressure 79 mm[Hg] Mirta Gallagher MD Work Phone: [facility] 08-17-2023 10:02-0400 Heart rate 73 /min Mirta Gallagher MD Work Phone: [facility] 08-17-2023 10:02-0400 Systolic blood pressure 129 mm[Hg] Mirta Gallagher MD Work Phone: [facility] 06-26-2022 19:10-0400 Body height 157.48 cm Josefina Kay Other [employer] Other 06-26-2022 19:10-0400 Body mass index (BMI) [Ratio] 40.64 kg/m2 Josefina Kay Other [employer] Other 06-26-2022 19:10-0400 Body weight 100.79 kg Josefina Kay Other [employer] Other 06-26-2022 19:10-0400 Diastolic blood pressure 87 mm[Hg] Josefina Kay Other [employer] Other 06-26-2022 19:10-0400 Respiratory rate 18 /min Josefina Kay Other [employer] Other 06-26-2022 19:10-0400 SaO2% (BldA) [Mass fraction] 98 % Josefina Kay Other [employer] Other 06-26-2022 19:10-0400 Systolic blood pressure 132 mm[Hg] Josefina Eliza Other [employer] Other Encounters Encounter Date Encounter Type Care Provider Facility Start: 07-18-2024 End: 07-18-2024 Patient encounter procedure Lito Velazquez MD Work Phone: [facility] Work Phone: Start: 07-18-2024 End: 07-18-2024 Periodic preventive med est patient 18-39 yrs Lito Velazquez MD Work Phone: [facility] Comment on above: Annual physical exam (Primary Dx); Hepatic steatosis; Monoallelic mutation of SDHA gene; Polycystic ovaries; Vitamin D deficiency; Palpitations; Murmur Start: 07-18-2024 End: 07-18-2024 ambulatory LITO VELAZQUEZ Not Available Start: 07-17-2024 End: 07-17-2024 Bamboo flowsheet Saravanan Zita DO Work Phone: [facility] Start: 07-17-2024 End: 07-17-2024 Bamboo flowsheet Saravanan Zita DO Work Phone: [facility] Start: 07-17-2024 End: 07-17-2024 ambulatory SARAVANAN ZITA Not Available Start: 07-17-2024 End: 07-17-2024 flow sheet Saravanan Zita DO Work Phone: [facility] Comment on above: Diabetes mellitus sc reening; Second trimester ; 22 weeks gestation of Start: 07-05-2024 End: 07-05-2024 ambulatory SARAVANAN ZITA Not Available Start: 06-30-2024 End: 07-04-2024 E-mail encounter from caregiver Josefina Harris RN Work Phone: Otolaryngology Start: 06-30-2024 End: 07-04-2024 Follow-up encounter Josefina Harris RN Work Phone: Otolaryngology Comment on above: SDHA follow up Start: 06-19-2024 End: 06-19-2024 ambulatory SARAVANAN ZITA Not Available Start: 06-19-2024 End: 06-19-2024 ambulatory SARAVANAN ZITA Not Available Start: 05-23-2024 End: 05-23-2024 Office outpatient new 30 minutes Andrew Ferrer DPM Work Phone: [facility] Comment on above: Onychomycosis (Prima ry [...] 2024 End: 04-04-2024 Patient encounter procedure Ortega Jtzora DELIVERY PERSON.TELEVISION WRITER Work Phone: [facility] Comment on above: Progesterone Questio n Start: 2024 End: 2024 Nursing evaluation of patient and report Us Tech [facility] Rej Work Phone: [facility] Comment on above: Supervision of pregn thor with history of infertility, first trimester Start: 2024 End: 04-04-2024 ambulatory Ortega Mindzora DELIVERY PERSON.TELEVISION WRITER Work Phone: [facility] Start: 03-27-2024 End: 03-27-2024 flow sheet [facility] Nurse [facility] Comment on above: GA: 6w1d Start: 03-27-2024 End: 03-27-2024 ambulatory SARAVANAN ZITA Not Available Start: 03-17-2024 End: 03-17-2024 ambulatory ORTEGA MINDZORA Facility:[facility] Start: 03-17-2024 End: 03-17-2024 Patient encounter procedure Ortega Jtzora DELIVERY PERSON.TELEVISION WRITER Work Phone: [facility] Comment on above: Supervision of pregn thor with history of infertility, first trimester (Primary Dx) Start: 03-17-2024 End: 03-17-2024 Telemedicine consultation with patient Ortega Reyeszora DELIVERY PERSON.TELEVISION WRITER Work Phone: [facility] Start: 03-16-2024 End: 03-16-2024 Orders Only Madeleine Orta PA-C Work Phone: [facility] Comment on above: Encounter for pregna ncy test, result positive (Primary Dx) Start: 03-15-2024 End: 03-15-2024 ambulatory ORTEGA MORRISSEY Facility:[facility] Start: 03-13-2024 End: 03-13-2024 ambulatory ORTEGA MORRISSEY Facility:[facility] Start: 03-13-2024 End: 03-13-2024 Telephone encounter Fede Hairston MD Work Phone: [facility] Comment on above: +hpt today/lmp 02/12 skipped treatment this month Start: 03-10-2024 End: 03-10-2024 ambulatory MIRTA GALLAGHER Facility:[facility] Start: 03-08-2024 End: 03-08-2024 Office outpatient new 45 minutes Gabriel R Rosalva DO Work Phone: [facility] Comment on above: Otalgia of both ears (Primary Dx); Temporomandibular joint disorder; Chronic allergic rhinitis; Postnasal drip Start: 03-08-2024 End: 03-08-2024 ambulatory [facility] Start: 02-28-2024 End: 02-28-2024 Telephone encounter Fede [...] Start: 02-23-2024 End: 02-23-2024 ambulatory FEDE HAIRSTON Facility:[facility] Start: 02-23-2024 End: 02-23-2024 Nursing evaluation of patient and report Nurse Gayathri [facility] Rej [facility] Comment on above: Female infertility Start: 02-21-2024 End: 02-21-2024 Telephone encounter Fede Hairston MD Work Phone: [facility] Comment on above: [facility] at [facility] Start: 02-17-2024 End: 02-17-2024 ambulatory FEDE HAIRSTON Facility:[facility] Start: 02-17-2024 End: 02-17-2024 Office outpatient visit 25 minutes Fede Hairston MD Work Phone: [facility] Comment on above: PCOS (polycystic ova kwadwo syndrome) (Primary Dx) Start: 02-15-2024 End: 02-15-2024 Patient encounter status Robles Goldsmith DO Work Phone: [facility] Start: 02-15-2024 End: 02-15-2024 Periodic preventive med [...] Reproductive Endocrinology Infertility Comment on above: lmp 18 for iui - ovulation tracking Start: 02-12-2024 End: 02-16-2024 Refill Fede Hairston MD Work Phone: [facility] Comment on above: Refill Request Start: 01-26-2024 End: 01-31-2024 Refill Ortega Morrissey APRN.TELEVISION WRITER Work Phone: Reproductive End[facility]inology Infertility Comment on above: Refill Request Start: 01-24-2024 End: 01-24-2024 ambulatory LITO VELAZQUEZ Not Available Start: 01-14-2024 End: 01-14-2024 Telephone encounter Ortega Morrissey APRN.TELEVISION WRITER Work Phone: Reproductive Endocrinology Infertility Comment on above: iui plan , cd1 01/12 Start: 01-14-2024 End: 01-17-2024 ambulatory MIRTA GALLAGHER Facility:[facility] Start: 12-31-2023 End: 12-31-2023 ambulatory ORTEGA MORRISSEY Facility:[facility] Start: 12-31-2023 End: 12-31-2023 Patient encounter procedure Ortega Morrissey APRN.TELEVISION WRITER Work Phone: Reproductive Endocrinology Infertility Comment on above: Encounter for artifi cial insemination (Primary Dx) Start: 12-21-2023 End: 12-21-2023 ambulatory ORTEGASARAHY REYES Facility:[facility] Start: 12-21-2023 End: 12-21-2023 Nursing evaluation of patient and report Fede Hairston MD Work Phone: Reproductive Endocrinology Infertility Comment on above: Female infertility Start: 12-13-2023 End: 12-13-2023 Telephone encounter Fede Hairston MD Work Phone: Reproductive Endocrinology Infertility Comment on above: LMP 12/12/23/ set up monitored cycle; Patient Update Start: 11-28-2023 End: 11-28-2023 ambulatory DESHAWN RIOJAS Facility:[facility] Start: 11-28-2023 End: 11-28-2023 Patient encounter procedure Deshawn Riojas MD Work Phone: Reproductive Endocrinology Infertility Comment on above: Female infertility ( Primary Dx) Start: 11-23-2023 End: 11-23-2023 ambulatory Ortega Morrissey APRN.TELEVISION WRITER Work Phone: Reproductive Endocrinology Infertility Start: 11-23-2023 End: 11-23-2023 Patient encounter procedure Ortega Morrissey APRN.TELEVISION WRITER Work Phone: Reproductive Endocrinology Infertility Comment on above: IUI Round 2 Start: 11-22-2023 End: 11-22-2023 ambulatory [facility] Facility:[facility] Start: 11-22-2023 End: 11-22-2023 Patient encounter procedure Ortega Morrissey APRN.TELEVISION WRITER Work Phone: Reproductive Endocrinology Infertility Comment on above: Procreation manageme nt investigation and testing (Primary Dx) Start: 11-22-2023 End: 11-22-2023 Telemedicine consultation with patient Ortega Morrissey DEBBIE.TELEVISION WRITER Work Phone: Reproductive Endocrinology Infertility Start: 11-22-2023 End: 11-22-2023 ambulatory [facility] Facility:[facility] Start: 11-22-2023 End: 11-22-2023 ambulatory [facility] Facility:[facility] Start: 11-22-2023 End: 11-22-2023 Nursing evaluation of patient and report Nurse Gayathri [facility] Rej Reproductive Endocrinology Infertility Comment on above: Female infertility Start: 11-18-2023 End: 11-18-2023 ambulatory Ortega Morrissey APRN.TELEVISION WRITER Work Phone: Reproductive Endocrinology Infertility Start: 11-18-2023 End: 11-18-2023 Patient encounter procedure Ortega Morrissey APRN.TELEVISION WRITER Work Phone: Reproductive Endocrinology Infertility Comment on above: IUI Medication quest ion Start: 11-12-2023 End: 11-15-2023 Telephone encounter Self Repro[facility] Endocrinology Infertility Comment on above: iui 10/25 , cd 1 11/11 Start: 10-26-2023 End: 10-26-2023 ambulatory Ortega Morrissey APRN.TELEVISION WRITER Work Phone: Reproductive Endocrinology Infertility Start: 10-26-2023 End: 10-26-2023 Patient encounter procedure Ortega Morrissey APRN.TELEVISION WRITER Work Phone: Reproductive Endocrinology Infertility Comment on above: Encounter for artifi cial insemination (Primary Dx) Progesterone Questio n Start: 10-22-2023 End: 10-22-2023 Nursing evaluation of patient and report Nurse Gayathri [facility] Greta Reproductive Endocrinology Infertility Comment on above: Female infertility Start: 10-22-2023 End: 10-22-2023 ambulatory ORTEGA MORRISSEY Facility:[facility] Start: 10-20-2023 Telephone encounter Self Rep roductive Endocrinology Infertility Comment on above: trigger shot Start: 10-12-2023 Telephone encounter Fede Hairston MD Work Phone: Reproductive Endocrinology Infertility Comment on above: Ortega lmp today/re us day 11-13 for iui Start: 09-13-2023 End: 09-13-2023 ambulatory FEDE HAIRSTON Facility:[facility] Start: 09-10-2023 End: 09-10-2023 ambulatory ORTEGA MORRISSEY Facility:[facility] Start: 09-10-2023 End: 09-10-2023 Patient encounter procedure Ortega Reyesamari HENRIETTA Work Phone: Reproductive Endocrinology Infertility Comment on above: Screen for sexually transmitted diseases (Primary Dx); Secondary amenorrhea; Female infertility Start: 09-10-2023 End: 09-10-2023 Telemedicine consultation with patient Ortega Morrissey HENRIETTA Work Phone: Reproductive Endocrinology Infertility Start: 09-08-2023 Telephone encounter Fede Hairston MD Work Phone: Reproductive Endocrinology Infertility Comment on above: Patient Question Start: 09-02-2023 End: 09-02-2023 ambulatory FEDE HAIRSTON Facility:[facility] Start: 09-02-2023 Telephone encounter Fede Hairston MD Work Phone: Reproductive Endocrinology Infertility Comment on above: lmp 07/23 no cycle si nce then Start: 08-19-2023 End: 08-19-2023 ambulatory FEDE HAIRSTON Facility:[facility] Start: 08-19-2023 End: 08-19-2023 Patient encounter procedure Fede Hairston MD Work Phone: Reproductive Endocrinology Infertility Comment on above: Irregular menstrual cycle (Primary Dx); PCOS (polycystic ovarian syndrome) Start: 08-19-2023 End: 08-19-2023 Telemedicine consultation with patient Fede Hairston MD Work Phone: Reproductive Endocrinology Infertility Start: 08-17-2023 End: 08-17-2023 ambulatory MIRTA GALLAGHER Facility:[facility] Start: 08-17-2023 End: 08-17-2023 Patient encounter procedure Mirta Gallagher MD Work Phone: Endocrinology Comment on above: Monoallelic mutation of SDHA gene (Primary Dx); Obesity, Class III, BMI 40-49.9 (morbid obesity) (HCC) Monoallelic mutation of SDHA gene (Primary Dx) Start: 08-17-2023 End: 08-17-2023 ambulatory MIRTA GALLAGHER Facility:[facility] Start: 07-29-2023 E-mail encounter fro m caregiver Fede Hairston MD Work Phone: Reproductive Endocrinology Infertility Start: 07-29-2023 Patient encounter procedure Fede Hairston MD Work Phone: Reproductive Endocrinology Infertility Comment on above: [facility] Start: 07-29-2023 End: 07-29-2023 [facility] Radiology Gastrointestinal Comment on above: Fertility testing [Z 31.41] Start: 07-29-2023 End: 07-29-2023 ambulatory FEDE HAIRSTON Facility:[facility] Start: 07-29-2023 Encounter for preprocedural laboratory examination MIRTA GALLAGHER [facility] Start: 07-29-2023 End: 07-29-2023 Nursing evaluation of patient and report Nurse Gayathri [facility] Reproductive Endocrinology Infertility Comment on above: Encounter for fertil ity testing (Primary Dx); Pre-procedure lab exam Start: 07-29-2023 End: 07-29-2023 Patient encounter status Nurse Gayathri [facility] Start: 06-23-2023 End: 06-23-2023 ambulatory МАРИЯ LABOY Facility:[facility] Start: 06-17-2023 End: 06-17-2023 ambulatory MIRTA AILEEN Facility:[facility] Start: 06-16-2023 Telephone encounter Fina Gupta rinatiffaniefelix 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 Work Phone: Genetic Healthcare Comment on above: Results (Genetic) Start: 05-25-2023 Telephone encounter Fede Hairston MD Work Phone: Reproductive Endocrinology Infertility Comment on above: refill letrozol/cycl e to start in next week Start: 05-18-2023 End: 05-18-2023 ambulatory ANNAMARIE WEISS Facility:[facility] Start: 04-23-2023 Telephone encounter Elsa altman [facility] Work Phone: Genetic Healthcare Comment on above: Follow Up Start: 04-21-2023 End: 04-21-2023 ambulatory FEDE HAIRSTON Facility:[facility] Start: 04-21-2023 End: 04-21-2023 ambulatory Elsa Puentes [facility] Work Phone: Genetic Healthcare Comment on above: Family history of br east cancer (Primary Dx); Family history of prostate cancer Start: 04-21-2023 End: 04-21-2023 Telemedicine consultation with patient Elsa Puentes [facility] Work Phone: [facility] Start: 04-19-2023 End: 04-19-2023 ambulatory ORTEGA MORRISSEY Facility:[facility] Start: 04-07-2023 End: 04-07-2023 ambulatory Fede Hairston MD Work Phone: Reproductive Endocrinology Infertility Comment on above: PCOS (polycystic ova kwadwo syndrome) (Primary Dx); Fertility testing Start: 04-07-2023 End: 04-07-2023 Telemedicine consultation with patient Fede Hairston MD Work Phone: [facility] Start: 02-08-2023 End: 02-08-2023 ambulatory Fede Hairston MD Work Phone: Reproductive Endocrinology Infertility Start: 02-08-2023 End: 02-08-2023 Patient encounter procedure Fede Hairston MD Work Phone: [facility] Start: 02-04-2023 Telephone encounter Fede Hairston MD Work Phone: Reproductive Endocrinology Infertility Comment on above: started letrozole Start: 06-26-2022 End: 06-26-2022 ambulatory Josefina Kay Other [employer] Other Start: 06-26-2022 Office outpatient visit 15 minutes Josefina Kay [facility] Start: 12-05-2019 Patient encounter procedure [facility] Facility: Procedures Date Procedure Procedure Detail Performing Clinician Start: 07-17-2024 Urnls dip stick/tablet rgnt non-auto w/o micrscp Saravanan Zita DO Work Phone: Start: 05-23-2024 US OB CERVICAL LENGTH Generic External D cecile Provider Start: 05-22-2024 Urnls dip stick/tablet rgnt non-auto w/o micrscp Saravanan Zita DO Work Phone: Start: 05-15-2024 Urnls dip stick/tablet rgnt non-auto w/o micrscp Saravanan Zita DO Work Phone: Start: 04-21-2024 BOX TEST Saravanan Zita DO Work Phone: Start: 04-21-2024 Urnls dip stick/tablet rgnt non-auto w/o micrscp Saravanan Zita DO Work Phone: Start: 2024 Us preg uterus after 1st trimest 03/29 gestation Ortega Mindzora DELIVERY PERSON.TELEVISION WRITER Work Phone: Start: 02-23-2024 Us pelvic nonobstetric image dcmtn limited/f/u Ortega Mindzora DELIVERY PERSON.TELEVISION WRITER Work Phone: Start: 02-15-2024 Smr prim src wet mount nfct agt Robles Goldsmith DO Work Phone: Start: 02-15-2024 APTIMA MULTITEST VAGINAL Robles Morfin r DO Work Phone: Start: 12-21-2023 Us pelvic nonobstetric image dcmtn limited/f/u Ortega Mindzora DELIVERY PERSON.TELEVISION WRITER Work Phone: Start: 11-22-2023 Us pelvic nonobstetric image dcmtn limited/f/u Ortega Mindzora DELIVERY PERSON.TELEVISION WRITER Work Phone: Start: 10-22-2023 Us pelvic nonobstetric image dcmtn limited/f/u Ortega Mindzora DELIVERY PERSON.TELEVISION WRITER Work Phone: Start: 07-29-2023 Urine test visual color cmprsn meths Ortega Mindzora DELIVERY PERSON.CNM Work Phone: Start: 02-08-2023 Us pelvic nonobstetric real-time image complete Fede Hairston MD Work Phone: Plan of Treatment Date Care Activity Detail Author Start: 2070 RSV Vaccine (1 - 1-dose 75+ series) RSV Vaccine (1 - 1-dose 75+ series) [facility] Start: 2045 Zoster Vaccines (1 of 2) Zoster Vaccines (1 of 2) [facility] Start: 06-26-2032 DTaP/Tdap/Td Vaccines (7 - Td or Tdap) DTaP/Tdap/Td Vaccines (7 - Td or Tdap) [facility] Start: 06-26-2032 Urine microalbumin profile DTaP,Tdap,Td Vaccine (7 - Td or Tdap) [facility] Start: 07-24-2025 End: 07-24-2025 Patient encounter procedure 07/24/2025 9:15 AM EDT Office Visit [facility] [address] [place] [phone] Lito Velazquez MD [address] [place] [address] [facility] Start: 07-18-2025 End: 10-17-2025 CBC W Auto Differential panel - Blood CBC and differential Lab Routine Annual physical exam Expected: 07/18/2025 (Approximate), Expires: 10/17/2025 [facility] Comment on above: Expected: 07/18/2025 (Approximate), Expi res: 10/17/2025 Start: 07-18-2025 End: 10-17-2025 Comprehensive metabolic 2000 panel - Serum or Plasma Comprehensive metabolic panel Lab Routine Annual physical exam Expected: 07/18/2025 (Approximate), Expires: 10/17/2025 [facility] Comment on above: Expected: 07/18/2025 (Approximate), Expi res: 10/17/2025 Start: 07-18-2025 End: 10-17-2025 Lipid 1996 panel - Serum or Plasma Lipid panel Lab Routine Annual physical exam Expected: 07/18/2025 (Approximate), Expires: 10/17/2025 [facility] Comment on above: Expected: 07/18/2025 (Approximate), Expi res: 10/17/2025 Start: 07-18-2025 End: 10-17-2025 Thyrotropin [Units/volume] in Serum or Plasma TSH Lab Routine Annual physical exam Expected: 07/18/2025 (Approximate), Expires: 10/17/2025 [facility] Comment on above: Expected: 07/18/2025 (Approximate), Expi res: 10/17/2025 Start: 11-27-2024 Influenza vaccination Influenza Vaccine (Season Ended) [facility] Start: 09-11-2024 End: 12-11-2024 METANEPHRINES, FREE PLASMA METANEPHRINES, FREE PLASMA Lab Routine Monoallelic mutation of SDHA gene Expected: 09/11/2024, Expires: 12/11/2024 [facility] Work Phone: Comment on above: Expected: 09/11/2024, Expires: Start: 09-11-2024 End: 09-11-2024 ambulatory 09/11/2024 9:00 AM EDT [facility] Endocrinology [address] [place] [address] Mirta Gallagher MD [address] [place] [address] Monoallelic mutation of SDHA gene Endocrinology Comment on above: Monoallelic mutation of SDHA gene Start: 09-05-2024 End: 09-05-2024 ambulatory 09/05/2024 2:00 PM EDT Results Only [facility] [address] [address] [place] [address] [facility] [place] [address] Comment on above: SDHA Start: 09-05-2024 End: 09-05-2024 Patient encounter procedure 09/05/2024 1:45 PM EDT Office Visit [facility] [address] [place] [address] Мария Laboy MD [address] [place] [address] Monoallelic mutation of SDHA gene [facility] Comment on above: Monoallelic mutation of SDHA gene Start: 08-16-2024 End: 08-16-2024 Patient encounter procedure 08/16/2024 8:30 AM EDT Routine [facility] [address] [place] [phone] Rupal Patel PA [address] [place] [address] [facility] Start: 07-18-2024 End: 10-17-2024 Cardiac event monitor Cardiac event monitor Cardiac Services Routine Palpitations Expected: 07/18/2024 (Approximate), Expires: 10/17/2024 [facility] Comment on above: Expected: 07/18/2024 (Approximate), Expi res: 10/17/2024 Start: 07-18-2024 End: 10-17-2024 CBC W Auto Differential panel - Blood CBC auto differential Lab Routine Annual physical exam 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 Polycystic ovaries Expected: 07/18/2024 (Approximate), Expires: 10/17/2024 [facility] Comment on above: Expected: 07/18/2024 (Approximate), Expi res: 10/17/2024 Start: 07-18-2024 End: 10-17-2024 Comprehensive metabolic 2000 panel - Serum or Plasma Comprehensive metabolic panel Lab Routine Annual physical exam 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 Polycystic ovaries Expected: 07/18/2024 (Approximate), Expires: 10/17/2024 [facility] Work Phone: Comment on above: Expected: 07/18/2024 (Approximate), Expi res: 10/17/2024 Start: 07-18-2024 End: 10-17-2024 Lipid 1996 panel - Serum or Plasma Lipid panel Lab Routine Annual physical exam 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 Polycystic ovaries Expected: 07/18/2024 (Approximate), Expires: 10/17/2024 [facility] Comment on above: Expected: 07/18/2024 (Approximate), Expi res: 10/17/2024 Start: 07-18-2024 End: 10-17-2024 Thyrotropin [Units/volume] in Serum or Plasma TSH Lab Routine Annual physical exam 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 Polycystic ovaries Expected: 07/18/2024 (Approximate), Expires: 10/17/2024 [facility] Comment on above: Expected: 07/18/2024 (Approximate), Expi res: 10/17/2024 Start: 07-18-2024 End: 10-17-2024 US Heart Transthoracic Transthoracic echo (TTE) complete Echocardiography Routine Palpitations Murmur Expected: 07/18/2024 (Approximate), Expires: 10/17/2024 [facility] Comment on above: Expected: 07/18/2024 (Approximate), Expi res: 10/17/2024 Start: 07-18-2024 End: 07-18-2024 Patient encounter procedure 07/18/2024 9:15 AM EDT Office Visit [facility] [address] [place] [phone] Lito Velazquez MD [address] [place] [address] [facility] Start: 07-17-2024 End: 07-17-2025 CBC panel - Blood by Automated count CBC Lab Routine Diabetes mellitus screening Expected: 07/17/2024 (Approximate), Expires: 07/17/2025 [facility] Work Phone: Comment on above: Expected: 07/17/2024 (Approximate), Expi res: 07/17/2025 Start: 07-17-2024 End: 07-17-2025 Measurement of glucose 1 hour after glucose challenge for glucose tolerance test Glucose tolerance, 1 hour Lab Routine Diabetes mellitus screening Expected: 07/17/2024 (Approximate), Expires: 07/17/2025 [facility] Comment on above: Expected: 07/17/2024 (Approximate), Expi res: 07/17/2025 Start: 06-19-2024 End: 06-19-2024 Patient encounter procedure [facility] Start: 05-23-2024 End: 05-23-2024 Patient encounter procedure 05/23/2024 4:00 PM EST Office Visit [facility] [address] [place] [phone] Andrew Fererr, DPM [address] [place] [address] [facility] Start: 05-22-2024 End: 07-20-2024 Alpha fetoprotein, maternal Alpha fetoprotein, maternal Lab Routine Second trimester 14 weeks gestation of Expected: 05/22/2024 (Approximate), Expires: 07/20/2024 [facility] Work Phone: Comment on above: Expected: [...] PM EST Initial [facility] [address] [address] [phone] Manju Alford DO [address] [phone] [facility] Start: 04-21-2024 End: 04-21-2025 [...] first trimester Expected: 04/21/2024 (Approximate), Expires: 04/21/2025 [facility] Comment on above: Expected: 04/21/2024 (Approximate), Expi res: 04/21/2025 Start: 04-20-2024 End: 04-20-2025 US Pelvis transvaginal US OB transvaginal Imaging Routine Missed menses Expected: 04/20/2024, Expires: 04/20/2025 [facility] Work Phone: Comment on above: Expected: 04/20/2024, Expires: Start: 04-12-2024 End: 04-12-2024 Professional / ancillary services management 04/12/2024 4:00 PM EST Ancillary Procedure [facility] [address] [phone] [facility] Start: 2024 End: 2024 Nursing evaluation of patient and report 2024 11:10 AM EST Nurse Visit [facility] [address] [place] [address] ob scan [facility] Comment on above: ob scan Start: 03-30-2024 End: 03-30-2024 Patient encounter procedure 03/30/2024 12:40 PM EST [facility] [address] [place] [address] Cira Garcia V, MD [address] [place] [address] Weight management Endocrinology Comment on above: Weight management Start: 03-27-2024 End: 03-27-2025 Bacteria identified in Urine by Culture Urine culture Microbiology Routine Encounter for supervision of normal first in first trimester Expected: 03/27/2024 (Approximate), Expires: 03/27/2025 [facility] Comment on above: Expected: 03/27/2024 (Approximate), Expi res: 03/27/2025 Start: 03-27-2024 End: 03-27-2025 Blood type and Indirect antibody screen panel - Blood Type and screen Lab Routine Encounter for supervision of normal first in first trimester Expected: 03/27/2024 (Approximate), Expires: 03/27/2025 [facility] Comment on above: Expected: 03/27/2024 (Approximate), Expi res: 03/27/2025 Start: 03-27-2024 End: 03-27-2025 CBC W Auto Differential panel - Blood CBC and differential Lab Routine Encounter for supervision of normal first in first trimester Expected: 03/27/2024 (Approximate), Expires: 03/27/2025 [facility] Comment on above: Expected: 03/27/2024 (Approximate), Expi res: 03/27/2025 Start: 03-27-2024 End: 03-27-2025 DRUG SCREEN 17 W/CONF, UR DRUG SCREEN 17 W/CONF, UR Lab Routine Encounter for supervision of normal first in first trimester Encounter for drug screening Expected: 03/27/2024 (Approximate), Expires: 03/27/2025 [facility] Comment on above: Expected: 03/27/2024 (Approximate), Expi res: 03/27/2025 Start: 03-27-2024 End: 03-27-2025 Hepatitis B virus surface Ag [Presence] in Serum or Plasma by Immunoassay Hepatitis B surface antigen Lab Routine Encounter for supervision of normal first in first trimester Expected: 03/27/2024 (Approximate), Expires: 03/27/2025 [facility] Comment on above: Expected: 03/27/2024 (Approximate), Expi res: 03/27/2025 Start: 03-27-2024 End: 03-27-2025 Hepatitis C virus Ab [Presence] in Serum or Plasma by Immunoassay Hepatitis C antibody Lab Routine Encounter for supervision of normal first in first trimester Expected: 03/27/2024 (Approximate), Expires: 03/27/2025 [facility] Comment on above: Expected: 03/27/2024 (Approximate), Expi res: 03/27/2025 Start: 03-27-2024 End: 03-27-2025 HIV-1/HIV-2 antigen/antibody combination immunoassay HIV-1 and HIV-2 antibodies Lab Routine Encounter for supervision of normal first in first trimester Expected: 03/27/2024 (Approximate), Expires: 03/27/2025 [facility] Comment on above: Expected: 03/27/2024 (Approximate), Expi res: 03/27/2025 Start: 03-27-2024 End: 03-27-2025 Reagin Ab [Presence] in Serum by RPR RPR Lab Routine Encounter for supervision of normal first in first trimester Expected: 03/27/2024 (Approximate), Expires: 03/27/2025 [facility] Comment on above: Expected: 03/27/2024 (Approximate), Expi res: 03/27/2025 Start: 03-27-2024 End: 03-27-2025 Rubella antibody, IgG Rubella antibody, IgG Lab Routine Encounter for supervision of normal first in first trimester Expected: 03/27/2024 (Approximate), Expires: 03/27/2025 [facility] Comment on above: Expected: 03/27/2024 (Approximate), Expi res: 03/27/2025 Start: 03-27-2024 End: 03-27-2025 Urinalysis complete panel - Urine Urinalysis with microscopic Lab Routine Encounter for supervision of normal first in first trimester Expected: 03/27/2024 (Approximate), Expires: 03/27/2025 [facility] Work Phone: Comment on above: Expected: 03/27/2024 (Approximate), Expi res: 03/27/2025 Start: 03-17-2024 End: 03-17-2025 OBSTETRIC ULTRASOUND WHI OBSTETRIC ULTRASOUND WHI Anc Imaging Routine Supervision of with history of infertility, first trimester Expected: 03/17/2024, Expires: 03/17/2025 [facility] Work Phone: Comment on above: Expected: 03/17/2024, Expires: Start: 03-17-2024 End: 03-17-2024 Patient encounter procedure 03/17/2024 2:00 PM [facility]ology Infertility [address] [facility] [place] [address] Ortega Morrissey, DELIVERY PERSON.TELEVISION WRITER [address] [facility] [place] [address] new preg [facility] Comment on above: new preg Start: 03-16-2024 End: 06-15-2024 Choriogonadotropin.be ta subunit [Units/volume] in Serum or Plasma HCG QUANTITATIVE Lab Routine Encounter for test, result positive Expected: 03/16/2024, Expires: 06/15/2024 [facility] Work Phone: Comment on above: Expected: 03/16/2024, Expires: Start: 03-15-2024 End: 03-15-2024 Patient encounter procedure 03/15/2024 3:45 PM EST Office Visit [facility] [address] [place] [address] [place] [id number] lab [facility] Comment on above: lab Start: 02-28-2024 End: 05-29-2024 Progesterone [Mass/volume] in Serum or Plasma PROGESTERONE Lab Routine Female infertility Expected: 02/28/2024, Expires: 05/29/2024 [facility] Work Phone: Comment on above: Expected: 02/28/2024, Expires: Start: 02-26-2024 End: 02-26-2024 Patient encounter procedure 02/26/2024 6:00 PM EST Office Visit [facility] [address] [place] [address] follicle us -benefit check [facility] Comment on above: follicle us -benefit check Start: 02-23-2024 End: 02-23-2024 Nursing evaluation of patient and report 02/23/2024 7:00 AM EST Nurse Visit [facility] [address] [place] [address] Rej, Nurse [facility] [address] [place] [address] midcycle [facility] Comment on above: midcycle Start: 02-17-2024 End: 02-17-2024 Follow-up encounter 02/17/2024 9:30 AM EST [facility] [address] [place] [address] Fede Hairston MD [address] [place] [address] follow up [facility] Comment on above: follow up Start: 02-15-2024 End: 02-14-2025 FOLLICULAR US WHI FOLLICULAR US WHI Anc Imaging Routine Female infertility Expected: 02/15/2024, Expires: 02/14/2025 [facility] Work Phone: Comment on above: Expected: 02/15/2024, Expires: Start: 01-19-2024 End: 01-19-2024 Patient encounter procedure 01/19/2024 6:00 PM EDT Office Visit [facility] [address] [place] [address] iui-benefit check [facility] Comment on above: iui-benefit check Start: 12-13-2023 End: 12-12-2024 FOLLICULAR US WHI FOLLICULAR US WHI Anc Imaging Routine Female infertility Expected: 12/13/2023, Expires: 12/12/2024 [facility] Work Phone: Comment on above: Expected: 12/13/2023, Expires: Start: 11-28-2023 Covid-19 Vaccine ( season) Covid-19 Vaccine ( season) [facility] Start: 11-28-2023 Covid-19 Vaccine ( season) Covid-19 Vaccine () [facility] Start: 11-28-2023 Influenza vaccination [facility] Start: 11-22-2023 End: 11-22-2023 Nursing evaluation of patient and report 11/22/2023 7:15 AM EDT Nurse Visit [facility] [address] [place] [address] Rej, Nurse [facility] [address] [place] [address] Follicular scan [facility] Comment on above: Follicular scan Start: 11-18-2023 End: 11-18-2023 Patient encounter procedure 11/18/2023 6:00 PM EDT Office Visit [facility] [address] [place] [address] midcycle-benefit check [facility] Comment on above: midcycle-benefit check Start: 11-15-2023 End: 11-14-2024 FOLLICULAR US WHI FOLLICULAR US WHI Anc Imaging Routine Female infertility Expected: 11/15/2023, Expires: 11/14/2024 [facility] Work Phone: Comment on above: Expected: 11/15/2023, Expires: Start: 11-04-2023 End: 11-04-2023 Patient encounter procedure Endocrinology Comment on above: MED WT MGMT Start: 10-22-2023 End: 10-22-2023 Nursing evaluation of patient and report 10/22/2023 7:00 AM EDT Nurse Visit [facility] [address] [place] [address] Rej, Nurse [facility] [address] [place] [address] midcycle [facility] Comment on above: midcycle Start: 09-19-2023 End: 12-19-2023 Progesterone [Mass/volume] in Serum or Plasma PROGESTERONE Lab Routine Irregular menstrual cycle Expected: 09/19/2023 (Approximate), Expires: 12/19/2023 [facility] Work Phone: Comment on above: Expected: 09/19/2023 (Approximate), Expi res: 12/19/2023 Start: 09-10-2023 End: 09-10-2023 Patient encounter procedure 09/10/2023 3:00 PM EDT [facility] [address] [place] [address] Ortega Morrissey APRN.CN [address] [address] [address] IUI teach [facility] 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 on above: IUI teach Start: 09-10-2023 End: 12-10-2023 Chlamydia trachomatis+Neisseria gonorrhoeae DNA [Presence] in Unspecified specimen by JANESSA with probe detection GONORRHEA/CHLAMYDIA NAAT Lab Routine Screen for sexually transmitted diseases Expected: 09/10/2023 (Approximate), Expires: 12/10/2023 [facility] Comment on above: Expected: 09/10/2023 (Approximate), Expi res: 12/10/2023 Start: 09-10-2023 End: 12-10-2023 Choriogonadotropin.be ta subunit [Units/volume] in Serum or Plasma HCG QUANTITATIVE Lab Routine Secondary amenorrhea Expected: 09/10/2023, Expires: 12/10/2023 [facility] Comment on above: Expected: 09/10/2023, Expires: 4 Start: 09-10-2023 End: 09-09-2024 FOLLICULAR US WHI FOLLICULAR US WHI Anc Imaging Routine Female infertility Expected: 09/10/2023, Expires: 09/09/2024 [facility] Comment on above: Expected: 09/10/2023, Expires: 5 Start: 09-10-2023 End: 12-10-2023 Hepatitis B virus surface Ag [Presence] in Serum HEPATITIS B SURFACE ANTIGEN Lab Routine Screen for sexually transmitted diseases Expected: 09/10/2023, Expires: 12/10/2023 [facility] Comment on above: Expected: 09/10/2023, Expires: Start: 09-10-2023 End: 12-10-2023 Hepatitis C virus Ab [Presence] in Serum HEPATITIS C ANTIBODY IA WITH CONFIRMATION Lab Routine Screen for sexually transmitted diseases Expected: 09/10/2023, Expires: 12/10/2023 [facility] Comment on above: Expected: 09/10/2023, Expires: 4 Start: 09-10-2023 End: 12-10-2023 HIV 1+2 Ab [Presence] in Serum or Plasma by Immunoassay HIV 1/2 COMBO WITH REFLEX TO DIFFERENTIATION Lab Routine Screen for sexually transmitted diseases Expected: 09/10/2023, Expires: 12/10/2023 [facility] Comment on above: Expected: 09/10/2023, Expires: 4 Start: 09-10-2023 End: 12-10-2023 Progesterone [Mass/volume] in Serum or Plasma PROGESTERONE Lab Routine Secondary amenorrhea Expected: 09/10/2023, Expires: 12/10/2023 [facility] [employer] Work Phone: Comment on above: Expected: 09/10/2023, Expires: Start: 09-10-2023 End: 12-10-2023 SYPHILIS TOTAL W/REFLEX SYPHILIS TOTAL W/REFLEX Lab Routine Screen for sexually transmitted diseases Expected: 09/10/2023, Expires: 12/10/2023 [facility] Comment on above: Expected: 09/10/2023, Expires: Start: 09-02-2023 End: 12-02-2023 Choriogonadotropin.be ta subunit [Units/volume] in Serum or Plasma [facility] Comment on above: Expected: 09/02/2023, Expires: Start: 09-02-2023 End: 12-02-2023 Progesterone [Mass/volume] in Serum or Plasma [facility] Work Phone: Comment on above: Expected: 09/02/2023, Expires: Start: 08-19-2023 End: 08-19-2023 Follow-up encounter 08/19/2023 10:30 AM EDT [facility] [address] [place] [address] Fede Hairston MD [address] [place] [address] follow up / rescheduled ok per KF [facility] Comment on above: follow up / rescheduled ok per KF Start: 08-17-2023 End: 08-17-2023 Patient encounter procedure 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 Start: 06-16-2023 End: 09-15-2023 METANEPHRINES, FREE PLASMA METANEPHRINES, FREE PLASMA Lab Routine Monoallelic mutation of SDHA gene Expected: 06/16/2023, Expires: 09/15/2023 [facility] Work Phone: Comment on above: Expected: 06/16/2023, Expires: Start: 06-01-2023 Varicella vaccination Varicella Vaccines (2 of 2 - 2-dose childhood series) [facility] Start: 05-17-2023 End: 08-16-2023 MISC SEND OUT TST 1 MISC SEND OUT TST 1 Lab Routine Family history of cancer Family history of gene mutation Expected: 05/17/2023, Expires: 08/16/2023 [facility] Work Phone: Comment on above: Expected: 05/17/2023, Expires: 4 Start: 04-17-2023 End: 07-17-2023 Progesterone [Mass/volume] in Serum or Plasma PROGESTERONE BLD Lab Routine PCOS (polycystic ovarian syndrome) Expected: 04/17/2023 (Approximate), Expires: 07/17/2023 [facility] Work Phone: Comment on above: Expected: 04/17/2023 (Approximate), Expi res: 07/17/2023 Start: 03-29-2023 Behavioral Health Screening Behavioral Health Screening [facility] Start: 03-29-2023 Depression Assessment Depression Assessment [facility] Start: 02-04-2023 End: 05-06-2023 Progesterone [Mass/volume] in Serum or Plasma PROGESTERONE BLD Lab Routine Encounter for fertility testing Expected: 02/04/2023, Expires: 05/06/2023 [facility] Work Phone: Comment on above: Expected: 02/04/2023, Expires: 4 Start: 11-27-2022 Covid-19 Vaccine ( season) Covid-19 Vaccine ( season) [facility] Start: 11-27-2022 Influenza vaccination Influenza Vaccine (#1) [facility] Start: 03-29-2022 Depression Assessment Depression Assessment [facility] Start: 2016 Pap Testing Pap Testing [facility] Start: 2016 Screening for malignant neoplasm of cervix [facility] Start: 2014 Hepatitis A Vaccines (1 of 2 - Risk 2-dose series) Hepatitis A Vaccines (1 of 2 - Risk 2-dose series) [facility] Start: 2014 Urine microalbumin profile DTaP,Tdap,Td Vaccine (1 - Tdap) [facility] Start: 2013 Anxiety Screening Anxiety Screening [facility] Start: 2013 Depression Screening Depression Screening [facility] Start: 2013 Hepatitis C Screening Hepatitis C Screening [facility] Start: 2013 Hepatitis C screening Hepatitis C Screening [facility] Start: 2013 HIV Screening HIV Screening [facility] Start: 2013 HIV screening HIV Screening [facility] Start: 1995 Covid-19 Vaccine (#1) Covid-19 Vaccine (#1) [facility] Start: 1995 Hepatitis B Vaccine (1 of 3 - 3-dose series) Hepatitis B Vaccine (1 of 3 - 3-dose series) [facility] Start: 1995 HIV screening HIV Screening [facility] Start: 1995 Lipid panel Lipid Panel [facility] Start: 1995 Yearly Adult Physical Yearly Adult Physical [facility] Bacteria identified in Urine by Culture Urine culture Microbiology Routine Missed menses Ordered: 04/21/2024 [facility] [employer] Comment on above: Ordered: 04/21/2024 Bacteria identified in Urine by Culture Urine culture Microbiology Routine Urinary tract infection without hematuria, site unspecified Ordered: 05/15/2024 [facility] [employer] Work Phone: Comment on above: Ordered: 05/15/2024 End: 05-17-2024 Cath & saline/contrast sonohyster/hysterosal pi XR HYSTEROSALPINGOGRAM Radiology Routine Fertility testing 1 Occurrences starting 04/18/2023 until 05/17/2024 [facility] [employer] Work Phone: Comment on above: 1 Occurrences starting 04/18/2023 until 05/17/2024 CBC W Auto Differential panel - Blood CBC and differential Lab Routine Missed menses , unspecified gestational age Ordered: 04/21/2024 [facility] [employer] Comment on above: Ordered: 04/21/2024 End: 03-13-2025 Choriogonadotropin.be ta subunit [Units/volume] in Serum or Plasma HCG QUANTITATIVE Lab Routine examination or test, unconfirmed Daily for 2 Occurrences starting 03/13/2024 until 03/13/2025 [facility] Work Phone: Comment on above: Daily for 2 Occurrences starting 024 until 03/13/2025 Choriogonadotropin.b e ta subunit [Units/volume] in Serum or Plasma HCG QUANTITATIVE Lab Routine examination or test, unconfirmed 03/13/2024 3:37 PM [facility] End: 07-15-2024 CT Abdomen W contrast IV CT ABDOMEN W IVCON Radiology Routine Intra-abdominal and pelvic swelling, mass and lump, unspecified site 1 Occurrences starting 06/16/2023 until 07/15/2024 [facility] Work Phone: Comment on above: 1 Occurrences starting 06/16/2023 until 07/15/2024 End: 07-15-2024 CT Chest W contrast IV CT CHEST W IVCON Radiology Routine Localized enlarged lymph nodes 1 Occurrences starting 06/16/2023 until 07/15/2024 [facility] Work Phone: Comment on above: 1 Occurrences starting 06/16/2023 until 07/15/2024 End: 07-15-2024 CT Neck W contrast IV CT NECK SOFT TISSUE W IVCON Radiology Routine Localized enlarged lymph nodes 1 Occurrences starting 06/16/2023 until 07/15/2024 [facility] Work Phone: Comment on above: 1 Occurrences starting 06/16/2023 until 07/15/2024 Hemoglobin A1c/Hemoglobin.total in Blood Hemoglobin A1c Lab Routine Missed menses , unspecified gestational age Ordered: 04/21/2024 [facility] [employer] Comment on above: Ordered: 04/21/2024 Hepatitis B virus surface Ag [Presence] in Serum or Plasma by Immunoassay Hepatitis B surface antigen Lab Routine Missed menses , unspecified gestational age Ordered: 04/21/2024 [facility] Comment on above: Ordered: 04/21/2024 Hepatitis C virus Ab [Presence] in Serum or Plasma by Immunoassay Hepatitis C antibody Lab Routine Missed menses , unspecified gestational age Ordered: 04/21/2024 [facility] Comment on above: Ordered: 04/21/2024 HIV-1/HIV-2 antigen/antibody combination immunoassay HIV-1 and HIV-2 antibodies Lab Routine Missed menses , unspecified gestational age Ordered: 04/21/2024 [facility] Comment on above: Ordered: 04/21/2024 IGP,rfxAptima HPV all,16/18,45 IGP,rfxAptima HPV all,16/18,45 Pathology and Cytology Routine Screening for malignant neoplasm of cervix Ordered: 02/15/2024 [facility] [employer] Work Phone: Comment on above: Ordered: 02/15/2024 Reagin Ab [Presence] in Serum by RPR RPR Lab Routine Missed menses , unspecified gestational age Ordered: 04/21/2024 [facility] Comment on above: Ordered: 04/21/2024 RF Uterus and Fallopian tubes Views W contrast IU XR HYSTEROSALPINGOGRAM Radiology Routine Fertility testing 07/29/2023 2:03 PM EDT [facility] Work Phone: Rubella antibody, IgG Rubella an tibody, IgG Lab Routine Missed menses , unspecified gestational age Ordered: 04/21/2024 [facility] Comment on above: Ordered: 04/21/2024 US Pelvis transvaginal US OB transvaginal Imaging Routine Missed menses 04/21/2024 8:47 AM EST [facility] Immunizations Immunization Date Immunization Notes Care Provider [facility] 05-04-2023 measles, mumps and rubella virus vaccine Robles Rupal DO Work Phone: [facility] 06-26-2022 tetanus toxoid, reduced diphtheria toxoid, and acellular pertussis vaccine, adsorbed Josefina Eliza Other [employer] Other 08-12-2015 Human Papillomavirus 9-valent vaccine Robles Goldsmith DO Work Phone: [facility] 04-10-2015 Human Papillomavirus 9-valent vaccine Robles Goldsmith DO Work Phone: [facility] 01-30-2015 influenza, seasonal, injectable, preservative free Robles Goldsmith DO Work Phone: [facility] 01-30-2015 influenza virus vaccine, unspecified formulation Fede Hairston MD Work Phone: [facility] 12-05-2014 Human Papillomavirus 9-valent vaccine Robles Goldsmith DO Work Phone: [facility] 02-13-2009 novel [id number], preservative-free, injectable Robles Goldsmith DO Work Phone: [facility] 08-12-2006 meningococcal polysaccharide (groups A, C, Y and W-135) diphtheria toxoid conjugate vaccine (MCV4P) Robles Goldsmith DO Work Phone: [facility] 08-10-2000 diphtheria, tetanus toxoids and acellular pertussis vaccine, unspecified formulation Robles Goldsmith DO Work Phone: [facility] 08-10-2000 measles, mumps and rubella virus vaccine Robles Goldsmith DO Work Phone: [facility] 08-10-2000 poliovirus vaccine, inactivated Robles Goldsmith DO Work Phone: [facility] 08-04-1996 diphtheria, tetanus toxoids and acellular pertussis vaccine, unspecified formulation Robles Goldsmith DO Work Phone: [facility] 08-04-1996 haemophilus influenzae type b vaccine, conjugate unspecified formulation Robles Goldsmith DO Work Phone: [facility] 08-04-1996 varicella virus vaccine Robles Goldsmith DO Work Phone: [facility] 04-21-1996 measles, mumps and rubella virus vaccine Robles Goldsmith DO Work Phone: [facility] 03-17-1996 diphtheria, tetanus toxoids and acellular pertussis vaccine, unspecified formulation Robles Goldsmith DO Work Phone: [facility] 03-17-1996 haemophilus influenzae type b vaccine, conjugate unspecified formulation Robles Goldsmith DO Work Phone: [facility] 03-17-1996 hepatitis B vaccine, pediatric or pediatric/adolescent dosage Robles Goldsmith DO Work Phone: [facility] 03-17-1996 trivalent poliovirus vaccine, live, oral Robles Goldsmith DO Work Phone: [facility] 1995 diphtheria, tetanus toxoids and pertussis vaccine Robles Goldsmith DO Work Phone: [facility] 1995 haemophilus influenzae type b vaccine, conjugate unspecified formulation Robles Goldsmith DO Work Phone: [facility] 1995 hepatitis B vaccine, pediatric or pediatric/adolescent dosage Robles Goldsmith DO Work Phone: [facility] 1995 trivalent poliovirus vaccine, live, oral Robles Goldsmith DO Work Phone: [facility] 1995 diphtheria, tetanus toxoids and pertussis vaccine Robles Goldsmith DO Work Phone: [facility] 1995 haemophilus influenzae type b vaccine, conjugate unspecified formulation Robles Goldsmith DO Work Phone: [facility] 1995 hepatitis B vaccine, pediatric or pediatric/adolescent dosage Robles Goldsmith DO Work Phone: [facility] 1995 trivalent poliovirus vaccine, live, oral Robles Goldsmith DO Work Phone: [facility] Payers Date Payer Category Payer Private Health Insurance [id number] 2021 [facility] Care (Private) [facility] [id number] 2021 Managed Care O (unspecified) [employer] [id number] 2021 Private Health Insurance [id number] 1995 Unknown [id number] 9.2.593 1995 Unknown [id number] 9.2.1243 1995 Unknown [id number] 9.2.1244 1995 Unknown [id number] 9.2.1259 1995 Unknown [id number] 9.2.1259 1995 Unknown [id number] [id number] 9.2.1259 1995 Unknown [id number] 9.2.1259 1995 Unknown [id number] [id number] 9.2.1259 1995 Unknown [id number] [id number] 9.2.1259 1995 Unknown [id number] [id number] 9.2.1259 1995 Unknown [id number] [id number] 9.2.1259 1995 Unknown [id number] [id number] 9.2.1259 1995 Unknown [id number] [id number] 9.2.1259 1995 Unknown [id number] [id number] 9.2.1259 1995 Unknown [id number] [id number] 9.2.1259 1995 Unknown [id number] 9.2.1259 1959 Self-pay Social History Date Type Detail Facility Unknown if ever smoked [employer] Other Start: 01-04-2023 End: 07-18-2024 Sex Assigned At [facility] [employer] Other Start: 10-05-2022 End: 12-29-2022 Tobacco smoking status NDIS Never smoked tobacco [facility] Start: 10-05-2022 End: 12-29-2022 Tobacco use and exposure Smokeless tobacco non-user [facility] Start: 01-04-2023 End: 03-17-2024 Alcohol intake Current drinker of alcohol (finding) [facility] Start: 01-04-2023 End: 07-18-2024 History of Social function [facility] Start: 12-29-2022 Alcohol Comment rare, socially [facility] Start: 1995 Sex Assigned At Female C [facility] Start: 01-04-2023 Gender identity Identifies as female gender (finding) [facility] National Score (1-100), lower number is lower risk 64 [facility] Start: 02-15-2024 End: 04-21-2024 Alcoholic beverage intake Ex-drinker (finding) [facility] How often to you hav e a drink containing alcohol? Never [facility] Start: 07-13-2023 Alcohol Comment Caffeine intak e: 1 cup per day coffee [facility] Start: 1995 Sex assigned at Not on file [facility] Start: 02-27-2024 End: 03-08-2024 Exposure to SARS-CoV-2 (event) Not sure [facility] Start: 03-27-2024 Alcohol Comment Caffeine intak e:less than 100 mg daily [facility] Start: 02-27-2024 [facility] Start: 05-23-2024 End: 07-18-2024 Alcoholic beverage intake Lifetime non-drinker (finding) [facility] Medical Equipment Procedure Code Equipment Code Equipment Origin al Text Equipment Identifier Dates To be used to in ject HCG trigger [id number] Start: 02-17-2024 End: 03-17-2024 To be used to mi x, draw up and inject HCG trigger [id number] Start: 02-17-2024 End: 03-17-2024 Goals Date Patient Goal Desired Activity /State Personal health goal Functional Status Date Assessment Result Facility 07-18-2024 Patient Health Quest ionnaire 2 item (PHQ-2) [Reported] [facility] Clinical Notes 03-29-2020 to 07-18-2024 Lito Velazquez MD - 07/18/2024 9:15 AM EDTSusan Spilonnier, LEXII - 07/17/2024 10:40 AM Mana Ferrer DPM - 05/23/2024 4:00 PM ESTSusan SpitlerLEXII - 05/22/2024 8:50 AM ESTPatient Instructions Note Date & Type Note Facility 07-18-2024 History of Present illness Narrative Images from the original note were not included. Lissa Rivas is a 29 y.o. female presents with chief complaint of Annual Exam (No lab ordered prior to visit. Patient is feeling good. She is 4 months . ) HPI: History of Present Illness The patient is a 29-year-old female who presents today for her routine annual office visit. She is currently in her fifth month of , with an expected due date of 11/19/2024. This is her first . She has been under the care of an infertility clinic at [facility], where fertility treatments were conducted for approximately one year before achieving natural conception. 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 Metformin, previously prescribed for polycystic ovary syndrome (PCOS), has been discontinued. Flonase has not been used recently. vitamins and vitamin D supplements are being taken, along with AmLactin cream. Constipation is reported more frequently than usual, but Colace has not yet been used as a treatment. Palpitations are described as a sensation of the heart slowing down and pounding, occurring several times since the onset of . A blood pressure machine is available at home but has only been used once. No associated dizziness or lightheadedness is reported. These episodes typically occur when seated or lying down and are characterized by a sensation of a skipped beat. An EKG has never been performed. The onset of these symptoms was in 04/2024, during which a prolonged episode of tachycardia lasting approximately 8 hours was experienced. Since then, these symptoms have occurred about once a week. Two skin lesions on the body were identified, which were present prior to . A liver scan was supposed to be done last year for Dr. Velazquez but was not completed. Clarification is needed on whether to proceed with the liver scan or wait for blood work results. A FibroScan was attempted a few years ago but was not successful. Genetic testing was done before starting fertility treatment, which came back positive for rare gene mutations. CAT scans, blood work, and MRI were required. Continued monitoring for these mutations is planned, with yearly blood work and scans every [address] scan was suggested this year, but it was deferred due to . A urine test on 07/17/2024 showed trace amounts of blood in the urine. Cataracts are present, and sunglasses are worn. I have reviewed and reconciled the history and medication list with the patient today. HISTORIES: PAST MEDICAL HISTORY: Past Medical History: Diagnosis Date Anxiety Asthma LROA (generalized anxiety disorder) (CMS/HCC) GERD (gastroesophageal reflux disease) Herpes simplex PCOS (polycystic ovarian syndrome) Seasonal allergies SURGICAL HISTORY: Past Surgical History: Procedure Laterality Date EYE SURGERY 03/2020 APRIL Lau SOCIAL HISTORY: Social History Tobacco Use Smoking status: Never Smokeless tobacco: Never Vaping Use Vaping status: Never Used Substance Use Topics Alcohol use: Never Comment: Caffeine intake:less than 100 mg daily Drug use: Never Comment: Pain killers Depression: Not at risk (07/18/2024) PHQ-2 PHQ-2 Score: 0 FAMILY HISTORY: Family History Problem Relation Name Age of Onset Hypertension Mother Estee Other (SDHA) Mother Estee Asthma Father Мраия Diabetes Father Мария Heart disease Father Мария [...] Paternal Grandmother Hina Diabetes Paternal Grandmother Hina MEDICATIONS: Current Outpatient Medications Medication Instructions ammonium lactate (Amlactin) 12 % cream Topical, Daily cholecalciferol (Vitamin D-3) 50 MCG (1999) tablet 2 tablets, Daily MV-Min-Fe Fum-FA-DHA ( 1 PO) Take by mouth ALLERGIES: No Known Allergies PHYSICAL EXAM: Visit Vitals BP 128/78 (BP Location: Left arm, Patient Position: Sitting) Pulse 90 Ht 5' 3 Wt 226 lb LMP 02/13/2024 (Approximate) SpO2 98% BMI 40.03 kg/m OB Status Smoking Status Never BSA 2.14 m BP Readings from Last 3 Encounters: 07/18/24 128/78 06/19/24 112/78 04/21/24 120/84 Wt Readings from Last 3 Encounters: 07/18/24 226 lb 06/19/24 221 lb 05/23/24 219 lb 3.2 oz Physical Exam Constitutional: General: She is not in acute distress. Appearance: Normal appearance. HENT: Head: Normocephalic. Right Ear: Tympanic membrane normal. Left Ear: Tympanic membrane normal. Mouth/Throat: Mouth: Mucous membranes are moist. Eyes: Extraocular Movements: Extraocular movements intact. Neck: Vascular: No carotid bruit. Cardiovascular: Rate and Rhythm: Normal rate and regular rhythm. Heart sounds: Murmur heard. Pulmonary: Effort: Pulmonary effort is normal. No respiratory distress. Breath sounds: Normal breath sounds. No wheezing, rhonchi or rales. Abdominal: General: Bowel sounds are normal. Palpations: Abdomen is soft. Tenderness: There is no abdominal tenderness. Musculoskeletal: General: Normal range of motion. Cervical back: Normal range of motion and neck supple. No rigidity or tenderness. Right lower leg: No edema. Left lower leg: No edema. Lymphadenopathy: Cervical: No cervical adenopathy. Skin: General: Skin is warm and dry. Neurological: Mental Status: She is alert and oriented to person, place, and time. Psychiatric: Mood and Affect: Mood normal. Thought Content: Thought content normal. Judgment: Judgment normal. Results Labs - Urine test: 07/17/2024, Trace amounts of blood ASSESSMENT AND PLAN: Assessment & Plan 1. Annual physical exam (Primary) - Comprehensive metabolic panel; Future - Lipid panel; Future - TSH; Future - CBC auto differential; Future - Comprehensive metabolic panel - Lipid panel - TSH - Blood pressure readings are within normal range today at 128/78. - Currently 5 months with a due date of 11/19/2024. - No longer taking metformin for PCOS; advised to continue vitamins and vitamin D supplements. - Comprehensive panel of laboratory tests will be ordered, including TSH, CBC, lipid profile, and CMP. 2. Hepatic steatosis - Comprehensive metabolic panel; Future - Lipid panel; Future - TSH; Future - CBC auto differential; Future - Was supposed to have a liver scan last year but did not complete it. - Liver ultrasound will be ordered to assess liver function. -will have fibroscan after she has her baby 3. Monoallelic mutation of SDHA gene - Comprehensive metabolic panel; Future - Lipid panel; Future - TSH; Future - CBC auto differential; Future 4. Polycystic ovaries - Comprehensive metabolic panel; Future - Lipid panel; Future - TSH; Future - CBC auto differential; Future 5. Vitamin D deficiency 1. Annual physical examination. 2. Constipation. - Reports increased constipation. - Advised to increase fiber intake. - May use Colace if needed. 6. Palpitations. - Reports experiencing palpitations, described as a sensation of heart slowing and pounding, occurring since 04/2024. - No previous EKG performed; [employer] monitor will be ordered -order echo. - If heart rate exceeds 120 beats per minute for an extended period, further investigation will be warranted. Patient was seen and examined with Jaime Mccarthy CNP. History was confirmed and verified. Kelly elements of the exam were also completed. Assessment and plan were reviewed and addended as needed. Agree with documentation above. documented in this encounter [facility] 07-17-2024 History of Present illness Narrative Reason for [...] nursing note reviewed. Exam conducted with a mold maker apprentice present. Vitals: Estimated body mass index is 39.15 kg/m as calculated from the following: Height [...] during travel. Patient was prescribed medication from mechanical test engineer and provider will reach out to patient to inform her if it is safe during . Patient given orders for 1 hour gtt and CBC to have obtained. Patient will have another placenta US around 32 weeks gestation. Patient to return to clinic in 4 weeks for routine OB appointment. Documented by Flip Ashley LPN on behalf of: Sarvaanan Ahumada DO --Patient was informed prior to leaving that lotion that was prescribed by T[employer] Specialist is safe to use, but not in large doses. PVU documented in this encounter [facility] 05-23-2024 History of Present illness Narrative Images from the original note were not included. Subjective Patient ID: Lissa Rivas is a 29 y.o. 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 She has tried jdki-iww-[id number] antifungal treatments without relief. Additionally she has [...] Past Medical History: Diagnosis Date Anxiety Asthma (CMS/[facility]) GERD (gastroesophageal reflux disease) HSV (herpes simplex virus) infection PCOS (polycystic ovarian syndrome) Medications Current Outpatient Medications: cholecalciferol (Vitamin D-3) 50 MCG (1999 UT) tablet, Take 2 tablets by mouth in [...] today utilizing a nail Nipper and bur surface grinder tender without incident. She will call us if [...] Andrew Ferrer DPM documented in this encounter [facility] 05-22-2024 History of Present illness Narrative Reason for Appointment: Patient ID: Lissa Rivas is a 29 y.o. female who presents for Routine Visit Patient presents today for Return OB appointment. MEDICATIONS Current Outpatient Medications Medication Instructions cholecalciferol (Vitamin D-3) 50 MCG (1999) tablet 2 tablets, Oral, Daily MV-Min-Fe Fum-FA-DHA [...] nursing note reviewed. Exam conducted with a mold maker apprentice present. Vitals: Estimated body mass index is [...] or undercooked meat, and stay away from [facility]. Patient has been consulted regarding any [...] Saravanan Ahumada DO documented in this encounter [facility] 05-15-2024 History of Present illness Narrative Reason for Appointment: Patient ID: Lissa Rivas is a 29 y.o. female who presents for Routine Visit Patient presents today for Urine Dip and Urine cultures. MEDICATIONS Current Outpatient Medications Medication Instructions cholecalciferol (Vitamin D-3) 50 MCG (1999) tablet 2 tablets, Oral, Daily MV-Min-Fe Fum-FA-DHA [...] nursing note reviewed. Exam conducted with a mold maker apprentice present. Vitals: Estimated body mass index is [...] Rosemary Hooper MA documented in this encounter [facility] 04-21-2024 History of Present illness Narrative [...] Procedure Laterality Date EYE SURGERY 03/2020 [facility]- [place] No Known Allergies Vitals: Estimated body mass [...] or undercooked meat, and stay away from [facility]. Patient has also been advised to [...] or questions. Nurse Visit Completed by: Rosemary oHoper MA documented in this encounter [facility] 2024 Note HNO ID: [id number] Author: ORTEGA MORRISSEY APRN.CNP Service: ? Author [...] Plan Move on to OB Ortega Morrissey APRN.TELEVISION WRITER 2024 4:34 PM [facility] 2024 History of Present illness Narrative Lissa [...] 2024 4:34 PM documented in this encounter [facility] 03-27-2024 History of Present illness Narrative Name: [...] drawn today. Appointments scheduled for OBUS in [place] office on 04/12 and with [facility] on 05/01. 03/27/2024 3:01 PM documented in this encounter [facility] 03-20-2024 Progress note Formatting of t [...] Hysteroscopy Laparoscopy OPK (Ovulation Predictor Kit) [facility] [place] [facility] 10.91 High 01/04/2023 Saline Ultrasound Semen [...] visit. 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 I spent a total of 30 minutes on the date of the service which included preparing to see the patient, [id number] patient care, counseling and educating the patient/family/caregiver, ordering medications, tests, or procedures, communicating results to the patient/family/caregiver, and care coordination (not separately reported). MD Kim Branch MD [facility] 03-20-2024 Consult note Formatting of th is [...] Hysteroscopy Laparoscopy OPK (Ovulation Predictor Kit) [facility] [place] [facility] 10.91 High 01/04/2023 Saline Ultrasound Semen [...] visit. 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 I spent a total of 30 minutes on the date of the service which included preparing to see the patient, qvhc-hz-vgku patient care, counseling and educating the patient/family/caregiver, ordering medications, tests, or procedures, communicating results to the patient/family/caregiver, and care coordination (not separately reported). MD Kim Branch MD documented in this encounter [facility] 03-17-2024 Note HNO ID: [id number] Author: ORTEGA MORRISSEY APRN.JORDAN Service: ? Author Type: Nurse Practitioner Type: Progress Notes Filed: 03/17/2024 14:22 Note Text: REPRODUCTIVE ENDOCRINOLOGY AND INFERTILITY New SERVICE DATE: 03/17/2024 SERVICE TIME: 1:56 PM NAME: Lissa Rivas VIRTUAL VISIT PROGRESS NOTE This is a virtual visit. It required patient-provider interaction for the medical decision making as documented below. Patient name and birthday verified: Yes Location of patient: [place] Persons Present: patient I have communicated my name and active licensure. The patient's identity and physical location were verified at the time of this visit. Either the patient or their legal automotive leasing sales representative has been informed of the risks [...] HCG 03/17 or 03/21 scan scheduled: 04/03, 1110 medications to discontinue: Metformin Schedule with OB: Scheduled with local OB Ortega Morrsisey APRN.TELEVISION WRITER March 17, 2024 1:56 PM I spent a total of 20 minutes on the date of the service which included preparing to see the patient, [id number] patient care, completing clinical documentation, obtaining and/or [...] schedule the patient for the following- Location: [facility] Provider: Nurse Visit type: OB scan Reason for visit/appointment notes: OB scan Date: 04/03 Time (requested): 1110 If slot is full, please schedule the closest open slot. Call to patient needed: no [facility] 03-17-2024 History of Present illness Narrative Images from the original note were not included. REPRODUCTIVE ENDOCRINOLOGY AND INFERTILITY New SERVICE DATE: 03/17/2024 SERVICE TIME: 1:56 PM NAME: Lissa Rivas VIRTUAL VISIT PROGRESS NOTE This is a virtual visit. It required patient-provider interaction for the medical decision making as documented below. Patient name and birthday verified: Yes Location of patient: [place] Persons Present: patient I have communicated my name and active licensure. The patient's identity and physical location were verified at the time of this visit. Either the patient or their legal automotive leasing sales representative has been informed of the risks [...] 5mg, date of LH surge: LH + /, TI Latest Ref Rng 01/04/2023 ABO A [...] OB: Scheduled with local OB Ortega Morrissey APRN.TELEVISION WRITER March 17, 2024 1:56 PM I spent a total of 20 minutes on the date of the service which included preparing to see the patient, pale-to-hpif patient care, completing clinical documentation, obtaining and/or [...] patient needed: no documented in this encounter [facility] 03-13-2024 Telephone encounter Note Patient calls with [...] for follow up. Labs ordered: HCG x2 NADEEMI Dr. Bill Morrissey APRN.CNP March 13, 2024 1:37 PM [facility] 03-13-2024 Miscellaneous Notes Patient calls with positive [...] for follow up. Labs ordered: HCG x2 NADEEMI Dr. Bill Morrissey APRN.CNP March 13, 2024 1:37 PM Patient states she skipped this month and has +hpt, please follow up with patient. documented in this encounter [facility] 03-13-2024 Telephone encounter Note Patient states she skipped this month and has +hpt, please follow up with patient. [facility] Work Phone: 03-08-2024 History of Present illness [...] Use: Not At Risk (02/15/2024) Received from [facility] AUDIT-C Frequency of Alcohol Consumption: Never [...] and 96% in the left ear. Speech corporate receptionist threshold is 10 dB in the right ear and 5 dB in the left ear. Procedure: [] Gabriel Blackwell DO documented in this encounter [facility] Work Phone: 02-28-2024 Telephone encounter Note Spoke [...] MORRISSEY APRN.CNP February 28, 2024 11:54 AM [facility] 02-28-2024 Miscellaneous Notes Spoke with Thao, Plan [...] after she pays documented in this encounter [facility] 02-28-2024 Telephone encounter Note Pt is not financially clear yet should she still schedule it after she pays [facility] 02-23-2024 Note HNO ID: [id number] Author: ORTEGA MORRISSEY APRN.CNP Service: ? Author [...] open slot. Call to patient needed: no [facility] 02-23-2024 Note HNO ID: [id number] Author: PAULA HESTER RN Service: ? Author [...] Hester RN February 23, 2024 7:46 AM [facility] 02-23-2024 History of Present illness Narrative The patient is here today for follicular ultrasound and blood work. The patient reports no problems or complaints. Ultrasound and blood will be reviewed by the physician, the flow sheet will be updated and instructions will be communicated to the patient. Paula Hester RN February 23, 2024 7:46 AM documented in this encounter [facility] 02-21-2024 Telephone encounter Note Medication send the CS specialty on 02/17. Ortega Morrissey APRN.CNP February 21, 2024 10:39 AM [facility] 02-21-2024 Miscellaneous Notes Medication send the CS specialty on 02/17. Ortega Morrissey APRN.CNP February 21, 2024 10:39 AM [facility] documented in this encounter [facility] 02-21-2024 Telephone encounter Note Needs hcg [facility] 02-17-2024 Plan of care note Lissa Rivas [...] visit. 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 I spent a total of 30 minutes on the date of the service which included preparing to see the patient, mzwb-gp-iekn patient care, counseling and educating the patient/family/caregiver, ordering medications, tests, or procedures, communicating results to the patient/family/caregiver, and care coordination (not separately reported). Kim Khan MD [facility] 02-17-2024 Miscellaneous Notes Lissa Rivas is a [...] visit. 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 I spent a total of 30 minutes on the date of the service which included preparing to see the patient, ozus-em-gkqj patient care, counseling and educating the patient/family/caregiver, ordering medications, tests, or procedures, communicating results to the patient/family/caregiver, and care coordination (not separately reported). Kim Khan MD documented in this encounter [facility] 02-15-2024 History of Present illness Narrative Images from the original note were not included. Robles Goldsmith, DO Obstetrics and Gynecology Lissa Rivas 1995 02/15/24 [id number] Yearly Wellness Exam Chief Complaint Patient presents [...] the evening. cholecalciferol (Vitamin D-3) 50 MCG (1999 UT) [...] angle tenderness, no obvious scoliosis/kyphosis. 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 She works from home for [employer]. Entered by Adilene Ford MA acting as scribe for Dr. Robles Goldsmith. Signature Adilene Ford MA Date 02/15/24 . Time 3:12 PM . The documentation recorded by the scribe accurately reflects the service(s) I personally performed and the decisions I made. Signature Jordan Goldsmith D.O. Date 02/15/24 Time 5:00PM. documented in this encounter [facility] 02-15-2024 Telephone encounter Note Spoke with [...] open slot. Call to patient needed: no [facility] 02-15-2024 Miscellaneous Notes Spoke with Thao, states [...] up with patient. documented in this encounter [facility] 02-15-2024 Telephone encounter Note Patient states this past month in January she did not ovulate so she did not go through with iui, please follow up with patient. [facility] Work Phone: 01-14-2024 Telephone encounter Note Spoke with Lissa, She is planning to use OPK only this cycle. Jeferson call with LH surge. Ortega Morrissey APRN.CNP January 14, 2024 4:17 PM [facility] 01-14-2024 Miscellaneous Notes Spoke with Lisas, She is planning to use OPK only this cycle. Jeferson call with LH surge. Ortega Morrissey APRN.CNP January 14, 2024 4:17 PM Pt started cycle 01/12 and would like to discuss plan for scheduling iui documented in this encounter [facility] 01-14-2024 Telephone encounter Note Pt started cycle 01/12 and would like to discuss plan for scheduling iui [facility] 12-31-2023 Note HNO ID: [id number] Author: ORTEGA MORRISSEY APRN.CNP Service: ? Author [...] Cycle Day: 20 Last menstrual period: 12/12/2023 [place] Protocol: UNIVERSAL PROTOCOL / SAFETY CHECKLIST Procedure [...] DATE: December 31, 2023 TIME: 10:25 AM [facility] 12-31-2023 Procedure note WHI GAYATHRI IUI PROCEDURE NOTE Date: 12/31/2023 Primary Proceduralist: Ortega Morrissey APRN.CNP Consents and Labels Consent Signed: Informed Consent obtained and on the chart Labels Verified With Patient: Yes Indications: Lissa Rivas, is a 28 year old female here today for intrauterine insemination. IUI # Series 1 Cycle 3. Cycle Day: 20 Last menstrual period: 12/12/2023 [place] Protocol: UNIVERSAL PROTOCOL / SAFETY CHECKLIST Procedure [...] DATE: December 31, 2023 TIME: 10:25 AM [facility] 12-31-2023 Procedure note WHI GAYATHRI IUI PROCEDURE NOTE Date: 12/31/2023 Primary Proceduralist: Ortega Morrissey APRN.CNP Consents and Labels Consent Signed: Informed Consent obtained and on the chart Labels Verified With Patient: Yes Indications: Lissa Rivas, is a 28 year old female here today for intrauterine insemination. IUI # Series 1 Cycle 3. Cycle Day: 20 Last menstrual period: 12/12/2023 [place] Protocol: UNIVERSAL PROTOCOL / SAFETY CHECKLIST Procedure [...] TIME: 10:25 AM documented in this encounter [facility] 12-31-2023 Nurse Note Legal Associate offered: Patient declines. [facility] 12-31-2023 Nurse Note Legal Associate offered: Patient declines. documented in this encounter [facility] 12-21-2023 History of Present illness Narrative pt [...] plan provided to patient via a Fertility member services coordinator. Kim Khan MD documented in this encounter [facility] 12-21-2023 Note HNO ID: [id number] Author: ROBIN GREWAL RN Service: ? Author Type: Registered Nurse Type: Progress Notes Filed: 12/21/2023 14:32 Note Text: pt using LH surge strips and will call to irvin VICTORI Robin Grewal RN December 21, 2023 2:32 PM [facility] 12-21-2023 Note HNO ID: [id number] Author: FEDE HAIRSTON MD Service: ? Author [...] plan provided to patient via a Fertility member services coordinator. Kim Khan MD [facility] 12-13-2023 Telephone encounter Note LMP 12/11 Plan: Let 5mg, trigger, IUI#2 Flowsheet/episode created Ortega Morrissey APRN.CNP December 13, 2023 4:42 PM Please schedule the patient for the following- Location: [facility] Provider: Nurse Visit type: Midcycle Reason for visit/appointment notes: Midcycle Date: 12/20 Time (requested): 730 If slot is full, please schedule the closest open slot. Call to patient needed: no [facility] 12-13-2023 Miscellaneous Notes LMP 12/11 Plan: Let 5mg, trigger, IUI#2 Flowsheet/episode created Ortega Morrissey APRN.CNP December 13, 2023 4:42 PM Please schedule the patient for the following- Location: [facility] Provider: Nurse Visit type: Midcycle Reason for visit/appointment notes: Midcycle Date: 12/20 Time (requested): 730 If slot is full, please schedule the closest open slot. Call to patient needed: no documented in this encounter [facility] 11-28-2023 Note HNO ID: [id number] Author: EVANGELINA PAINTER, ? Service: ? Author Type: Coin Box Collector Type: Progress Notes Filed: 11/28/2023 11:00 Note Text: IUI Pre: 72 M/ml, 63% Post: 73 M/ml, 88% Insem # 44.8 million [facility] 11-28-2023 History of Present illness Narrative IUI Pre: 72 M/ml, 63% Post: 73 M/ml, 88% Insem # 44.8 million IUI specimen released to provider Evangelina Painter November 28, 2023 10:48 AM documented in this encounter [facility] 11-28-2023 Note HNO ID: [id number] Author: DESHAWN RIOJAS MD Service: ? Author [...] Cycle Day: 13 Last menstrual period: 11/12/2023 [place] Protocol: UNIVERSAL PROTOCOL / SAFETY CHECKLIST Procedure [...] DATE: November 28, 2023 TIME: 10:52 AM [facility] 11-28-2023 Procedure note WHI GAYATHRI IUI PROCEDURE NOTE Date: 11/28/2023 Primary Proceduralist: Deshawn Riojas MD, Sandra Cruz MD Consents and Labels Consent Signed: Informed Consent obtained and on the chart Labels Verified With Patient: Yes Indications: Lissa Rivas, is a 28 year old female here today for intrauterine insemination. IUI # . Cycle Day: 13 Last menstrual period: 11/12/2023 [place] Protocol: UNIVERSAL PROTOCOL / SAFETY CHECKLIST Procedure [...] DATE: November 28, 2023 TIME: 10:52 AM [facility] 11-28-2023 Procedure note WHI GAYATHRI IUI PROCEDURE NOTE Date: 11/28/2023 Primary Proceduralist: Deshawn Riojas MD, Sandra Cruz MD Consents and Labels Consent Signed: Informed Consent obtained and on the chart Labels Verified With Patient: Yes Indications: Lissa Rivas, is a 28 year old female here today for intrauterine insemination. IUI # . Cycle Day: 13 Last menstrual period: 11/12/2023 [place] Protocol: UNIVERSAL PROTOCOL / SAFETY CHECKLIST Procedure [...] TIME: 10:52 AM documented in this encounter [facility] 11-28-2023 Note HNO ID: [id number] Author: EVANGELINA PAINTER, ? Service: ? Author Type: Coin Box Collector Type: Progress Notes Filed: 11/28/2023 10:54 Note Text: IUI specimen released to provider Evangelina Painter November 28, 2023 10:48 AM [facility] 11-22-2023 Note HNO ID: [id number] Author: ORTEGA MORRISSEY APRN.CNP Service: ? Author [...] and birthday verified: Yes Location of patient: [place] Persons Present: patient I have communicated my name and active licensure. The patient's identity and physical location were verified at the time of this visit. Either the patient or their legal automotive leasing sales representative has been informed of the risks [...] Once starting progesterone had intense mood swings/irritability [place] heart was beating slower than normal but [...] will schedule IUI as instructed Ortega Morrissey APRN.TELEVISION WRITER November 22, 2023 2:33 PM I spent a total of 20 minutes on the date of the service which included preparing to see the patient, xzrb-oo-ivlq patient care, completing clinical documentation, obtaining and/or [...] grammatical and typographical errors missed in proofreading. [facility] 11-22-2023 History of Present illness Narrative Images from the original note were not included. REPRODUCTIVE ENDOCRINOLOGY AND INFERTILITY VIRTUAL VISIT PROGRESS NOTE SERVICE DATE: 11/22/2023 SERVICE TIME: 2:33 PM NAME: Lissa Rivas VIRTUAL VISIT PROGRESS NOTE This is a virtual visit. It required patient-provider interaction for the medical decision making as documented below. Patient name and birthday verified: Yes Location of patient: [place] Persons Present: patient I have communicated my name and active licensure. The patient's identity and physical location were verified at the time of this visit. Either the patient or their legal automotive leasing sales representative has been informed of the risks [...] Once starting progesterone had intense mood swings/irritability [place] heart was beating slower than normal but [...] which included preparing to see the patient, jqbo-ay-eghr patient care, completing clinical documentation, obtaining and/or [...] missed in proofreading. documented in this encounter [facility] 11-22-2023 Note HNO ID: [id number] Author: ERMA DONIS RN Service: ? Author [...] called patient. She will drive back to [facility] now to get done. Erma Donis RN [...] Donis RN November 22, 2023 12:53 PM [facility] 11-22-2023 History of Present illness Narrative Lissa Rivas is here today for a midcycle scan. Lead follicle: 21mm vs CL Erma Donis RN November 22, 2023 8:44 AM Message sent to Dr. Howard to see if patient needs labs based on scan. Erma Donis RN November 22, 2023 8:09 AM Labs ordered and called patient. She will drive back to [facility] now to get done. Erma Donis RN [...] 2023 12:53 PM documented in this encounter [facility] 11-15-2023 Telephone encounter Note Plan: Let 5mg/trigger/IUI #2 Ortega Morrissey APRN.TELEVISION WRITER November 15, 2023 9:39 AM Please schedule the patient for the following- Location: [place] Provider: Nurse Visit type: Follicular scan Reason for visit/appointment notes: Follicular scan Date: 11/21 Time (requested): 0715 If slot is full, please schedule the closest open slot. Call to patient needed: no [facility] 11-15-2023 Miscellaneous Notes Plan: Let 5mg/trigger/IUI #2 Ortega Morrissey APRN.CNP November 15, 2023 9:39 AM Please schedule the patient for the following- Location: [place] Provider: Nurse Visit type: Follicular scan Reason [...] started cycle 11/11 documented in this encounter [facility] 11-12-2023 Telephone encounter Note Patient is planning IUI. FYI: DEXTER Mg. Please see the checklist Madeleine Orta PA-C November 12, 2023 6:07 PM [facility] Work Phone: 11-12-2023 Telephone encounter Note Pt had iui 10/25 , pt had negative preg 11/08 or 11/09 , pt started cycle 11/11 [facility] 10-26-2023 Telephone encounter Note This patient gave [...] seven days of my reply. See the [facility] message reply for my assessment and plan. I spent a total of 5 minutes reviewing the patient's prior medical records and current request for medical advice, prescribing medications or ordering tests (if applicable), replying to the patient, and documenting the encounter. [facility] 10-26-2023 Miscellaneous Notes This patient gave consent [...] seven days of my reply. See the [facility] message reply for my assessment and plan. I spent a total of 5 minutes reviewing the patient's prior medical records and current request for medical advice, prescribing medications or ordering tests (if applicable), replying to the patient, and documenting the encounter. documented in this encounter [facility] 10-26-2023 Note HNO ID: [id number] Author: ORTEGA MORRISSEY APRN.CNP Service: ? Author [...] Cycle Day: 15 Last menstrual period: 10/12/2023 [place] Protocol: UNIVERSAL PROTOCOL / SAFETY CHECKLIST Procedure [...] DATE: October 26, 2023 TIME: 11:36 AM [facility] 10-26-2023 Procedure note WHI GAYATHRI IUI PROCEDURE NOTE Date: 10/26/2023 Primary Proceduralist: Ortega Morrissey APRN.CNP Consents and Labels Consent Signed: Informed Consent obtained and on the chart Labels Verified With Patient: Yes Indications: Lissa Rivas, is a 28 year old female here today for intrauterine insemination. IUI # Series 1 Cycle 1. Cycle Day: 15 Last menstrual period: 10/12/2023 [place] Protocol: UNIVERSAL PROTOCOL / SAFETY CHECKLIST Procedure [...] DATE: October 26, 2023 TIME: 11:36 AM [facility] 10-26-2023 Procedure note WHI GAYATHRI IUI PROCEDURE NOTE Date: 10/26/2023 Primary Proceduralist: Ortega Morrissey APRN.CNP Consents and Labels Consent Signed: Informed Consent obtained and on the chart Labels Verified With Patient: Yes Indications: Lissa Rivas, is a 28 year old female here today for intrauterine insemination. IUI # Series 1 Cycle 1. Cycle Day: 15 Last menstrual period: 10/12/2023 [place] Protocol: UNIVERSAL PROTOCOL / SAFETY CHECKLIST Procedure [...] TIME: 11:36 AM documented in this encounter [facility] 10-22-2023 Note HNO ID: [id number] Author: AYANNA TREVIZO MD Service: ? Author Type: Physician Type: Progress Notes Filed: 10/22/2023 23:02 Note Text: GAYATHRI Attending Physician Note: Ultrasound and lab results reviewed. Based on review of ultrasound and lab results, medication dose and follow up date plans provided. See cycle flowsheet for dosing details. Ayanna Trevizo MD, FLACO [facility] 10-22-2023 Note HNO ID: [id number] Author: ERMA DONIS RN Service: ? Author [...] Donis RN October 22, 2023 1:38 PM [facility] 10-22-2023 History of Present illness Narrative Lissa [...] 2023 1:38 PM documented in this encounter [facility] 10-20-2023 Telephone encounter Note patient instructed to order trigger now so that she has it by Wednesday Ani Stovall APRN.CNP October 20, 2023 3:10 PM [facility] 10-20-2023 Miscellaneous Notes patient instructed to order trigger now so that she has it by Wednesday Ani Stovall APRN.CNP October 20, 2023 3:10 PM Pts pharmacy called and would like to know when she needs to order trigger shot documented in this encounter [facility] 10-20-2023 Telephone encounter Note Pts pharmacy called and would like to know when she needs to order trigger shot [facility] 10-12-2023 Telephone encounter Note The following approved medication requests have been transmitted electronically. Requested Prescriptions Signed Prescriptions Disp Refills Choriogonadotropin Pam,HumRec (OVIDREL) 250 mcg/0.5 mL syrg 0.5 mL 1 Sig: Inject 250 mcg subcutaneously one time only for 1 dose. Authorizing Provider: ORTEGA MORRISSEY APRN.CNP October 12, 2023 4:10 PM [facility] 10-12-2023 Miscellaneous Notes The following approved medication [...] Please call patient. documented in this encounter [facility] 10-12-2023 Telephone encounter Note Called the patient [...] open slot. Call to patient needed: no [facility] 10-12-2023 Telephone encounter Note Patient states she also needs information regarding trigger shot. Please call patient. [facility] Work Phone: 09-10-2023 Note HNO ID: [id number] Author: ORTEGA MORRISSEY APRN.CNM Service: ? Author [...] and birthday verified: Yes Location of patient: [place] Persons Present: patient I have communicated my name and active licensure. The patient's identity and physical location were verified at the time of this visit. 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 Reason for visit: IUI Teach [facility] Primary GAYATHRI Physician: Dr. Khan IUI Treatment Plan: Letrozole 5mg/trigger/IUI Partner's name/MRN: Brenton [id number] LMP: 07/23 IUI Checklist: Consultation: Done Registration of patient and partner: Done Financial Clearance: In process IUI Patient Education: ASRM IUI Patient Fact Sheet IUI Consent Form: sent today via [facility] [place] Orders: filed today Medications ordered today Screening [...] Count Sperm M 592.20 % Motile Sperm (%VA + %SIGNALING DESIGN ENGINEER) >=40 % 64 Forward Progression 4 = [...] which included preparing to see the patient, plel-qs-xwwa patient care, completing clinical documentation, obtaining and/or [...] be grammatical and (more content not included)... [facility] 09-10-2023 History of Present illness Narrative Images from the original note were not included. REPRODUCTIVE ENDOCRINOLOGY AND INFERTILITY IUI TEACH SERVICE DATE: 09/10/2023 SERVICE TIME: 2:56 PM NAME: Lissa Rivas VIRTUAL VISIT PROGRESS NOTE This is a virtual visit. It required patient-provider interaction for the medical decision making as documented below. Patient name and birthday verified: Yes Location of patient: [place] Persons Present: patient I have communicated my name and active licensure. The patient's identity and physical location were verified at the time of this visit. 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 Reason for visit: IUI Teach [facility] Primary GAYATHRI Physician: Dr. Khan IUI Treatment Plan: Letrozole 5mg/trigger/IUI Partner's name/MRN: Brenton [id number] LMP: 07/23 IUI Checklist: Consultation: Done Registration of patient and partner: Done Financial Clearance: In process IUI Patient Education: ASRM IUI Patient Fact Sheet IUI Consent Form: sent today via [employer] Orders: filed today Medications ordered today Screening [...] Count Sperm M 592.20 % Motile Sperm (%VA + %SIGNALING DESIGN ENGINEER) >=40 % 64 Forward Progression 4 = [...] which included preparing to see the patient, yray-ue-fkcc patient care, completing clinical documentation, obtaining and/or [...] missed in proofreading. documented in this encounter [facility] 09-09-2023 Telephone encounter Note The following approved medication requests have been transmitted electronically. Requested Prescriptions Signed Prescriptions Disp Refills medroxyPROGESTERone (PROVERA) 10 mg tablet 10 tablet 0 Sig: Take 1 tablet by mouth once daily. Authorizing Provider: ORTEGA MORRISSEY APRN.CNM September 09, 2023 9:07 AM [facility] 09-09-2023 Miscellaneous Notes The following approved medication [...] her lab results documented in this encounter [facility] 09-09-2023 Telephone encounter Note Called the patient [...] 0.2 hCG Quantitative, Blood <5.0 mIU/mL <0.6 [facility] 09-08-2023 Telephone encounter Note Iui Patient called in regards to her lab results [facility] 09-02-2023 Telephone encounter Note Returned patient call [...] Mcclellan RN September 02, 2023 1:11 PM [facility] 09-02-2023 Miscellaneous Notes Returned patient call to [...] up with patient. documented in this encounter [facility] 09-02-2023 Telephone encounter Note Returned patient call. [...] Mcclellan RN September 02, 2023 11:41 AM [facility] 09-02-2023 Telephone encounter Note Please follow up with patient. T [facility] Work Phone: 08-19-2023 Progress note Formatting of t his note is different from the original. [facility] Date: 08/19/2023 Consultation Requested [...] Hysteroscopy Laparoscopy OPK (Ovulation Predictor Kit) [facility] [place] [facility] 10.91 High 01/04/2023 Saline Ultrasound Semen [...] no OCCUPATION/EXERCISE: Occupation: [employer] and [employer]iance / [employer] Exercise: daily walking Partner Information Partner's Name: [...] visit. 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 I spent a total of 30 minutes on the date of the service which included preparing to see the patient, shpx-hy-piyc patient care, completing clinical documentation, counseling and educating the patient/family/caregiver, ordering medications, tests, or procedures, communicating results to the patient/family/caregiver, and care coordination (not separately reported). Kim Khan MD [facility] 08-19-2023 Consult note Formatting of th is note is different from the original. [facility] Date: 08/19/2023 Consultation Requested [...] Hysteroscopy Laparoscopy OPK (Ovulation Predictor Kit) [facility] [place] [facility] 10.91 High 01/04/2023 Saline Ultrasound Semen [...] visit. 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 I spent a total of 30 minutes on the date of the service which included preparing to see the patient, nivt-es-bbxp patient care, completing clinical documentation, counseling and educating the patient/family/caregiver, ordering medications, tests, or procedures, communicating results to the patient/family/caregiver, and care coordination (not separately reported). Kim Khan MD documented in this encounter [facility] 08-19-2023 Plan of care note Patient indicated [...] daily Comments: None Kim Khan MD 08/19/2023 [facility] 08-19-2023 Miscellaneous Notes Patient indicated that her [...] Khan MD 08/19/2023 documented in this encounter [facility] 08-17-2023 Note HNO ID: [id number] Author: МАРИЯ LABOY MD Service: ? Author [...] while trying for , who presents to [facility] care. Her genetic testing indicates [...] Procedure Laterality Date EYE SURGERY HX 03/2020 MICHAEL-Sid Social History Tobacco Use Smoking status: Never [...] aerodigestive tract ANESTHESIA: (more content not included)... [facility] 08-17-2023 History of Present illness Narrative CC: [...] while trying for , who presents to [facility]. Her genetic testing indicates she has [...] Procedure Laterality Date EYE SURGERY HX 03/2020 MICHAEL-Sid Social History Tobacco Use Smoking status: Never [...] while trying for , who presents to [facility] care. Her genetic testing indicates [...] Мария Laboy MD documented in this encounter [facility] 08-17-2023 Nurse Note Tobacco Use: Never Was smoking cessation packet given? N/A - Patient is a non-smoker or quit >1 year ago. Was a referral initiated?N/A Patient is a non-smoker [facility] 08-17-2023 Nurse Note Tobacco Use: Never Was smoking cessation packet given? N/A - Patient is a non-smoker or quit >1 year ago. Was a referral initiated?N/A Patient is a non-smoker documented in this encounter [facility] 08-17-2023 Note HNO ID: [id number] Author: MIRTA GALLAGHER MD Service: ? Author [...] Medication Sig letrozo (more content not included)... [facility] 08-17-2023 History of Present illness Narrative DATE: [...] MD, MPH Endocrinology documented in this encounter [facility] 08-17-2023 Instructions Latosha Wesley MA - 08/17/2023 9:53 AM EDT Thank you for choosing the [facility] Department of Endocrinology, Diabetes and Metabolism. Did you know that you need to call 48 hours in advance of your scheduled visit, if you are unable to make your appointment? The Endocrinology and Metabolism [facility] thanks you for your commitment, because patients not showing to their appointment results in a lost opportunity for patients to receive [facility] health care at the [facility]. To Cancel an appointment, please choose one of the following: - Call the Appointment Call Center at [phone] - From [facility], Go to Appointments - Cancel Appts If cancelling, consider your need to reschedule to prevent further delays in your care. To Schedule an appointment, please choose one of the following: - Call the Appointment Call Center at [phone] - From [facility], Go to Appointments - Request an Appt documented in this encounter [facility] 07-29-2023 History of Present illness Narrative Radiology [...] PATIENT PRESENTS WITH AN IMPLANTABLE OR ATTACHED LABORATORY SECRETARY: No RADIOLOGY DEPARTMENT: General X-ray: Exam(s) Completed: HSG PERIPHERAL IV DATA: Not applicable SIGNED BY: RT Clark(R) July 29, 2023 1:58 PM documented in this encounter [facility] 07-29-2023 Note HNO ID: [id number] Author: FLIP NEWMAN RT(Loc) Service: Radiology Author [...] PATIENT PRESENTS WITH AN IMPLANTABLE OR ATTACHED LABORATORY SECRETARY: No RADIOLOGY DEPARTMENT: General X-ray: Exam(s) Completed: HSG PERIPHERAL IV DATA: Not applicable SIGNED BY: RT Clark(R) July 29, 2023 1:58 PM [facility] 07-29-2023 Note HNO ID: [id number] Author: ORTEGA MORRISSEY APRN.CN Service: ? Author Type: Nurse Practitioner Type: [...] without evidence of loculation. Ortega Morrissey APRN.CNM [facility] 07-29-2023 Procedure note Nelson TRINH HYSTEROSALPINGOGRAM NOTE Date: July 29, 2023 [...] without evidence of loculation. Ortega Morrissey APRN.CNM [facility] 07-29-2023 Procedure note WHI GAYATHRI HYSTEROSALPINGOGRAM NOTE Date: July 29, [...] patent bilaterally without evidence of loculation. Ortega Morrsisey APRN.CNM documented in this encounter [facility] 06-23-2023 Note HNO ID: [id number] Author: RADHA HAWKINS RT(Loc) Service: Radiology Author Type: Coin Box Collector Type: Progress Notes Filed: 06/23/2023 09:10 Note [...] PATIENT PRESENTS WITH AN IMPLANTABLE OR ATTACHED LABORATORY SECRETARY: No ALLERGIES: Reviewed and unchanged CONTRAST ALLERGY: [...] DATE: June 23, 2023 TIME: 9:09 AM [facility] 06-16-2023 Miscellaneous Notes Addended by: МАРИЯ LABOY [...] Мария Laboy. Patient will be updated via [facility] when orders are placed for imaging. Fina Lizama MS, [facility] Licensed, Certified Genetic Counselor documented in this encounter [facility] 06-14-2023 Telephone encounter Note Patient had questions [...] Puentes MS, [facility] Licensed, Certified Genetic Counselor [facility] Work Phone: 06-14-2023 Miscellaneous Notes Patient had [...] to try for children. Elsa Puentes MS, [facility] Licensed, Certified Genetic Counselor Patient name and was confirmed at initiation of discussion. Lissa Rivas's Integrated BRACAnalysis with Humberto through [facility] was positive for a pathogenic variant in [...] population without disease (benign polymorphism). Please see [facility] message for further discussion. CHRISTIE Magdaleno Licensed, Certified Genetic Counselor documented in this encounter [facility] 06-10-2023 Telephone encounter Note Patient name and was confirmed at initiation of discussion. Lissa Rivas's Integrated BRACAnalysis with [facility] through [employer] was positive for a pathogenic variant in [...] population without disease (benign polymorphism). Please see [facility] message for further discussion. CHRISTIE Magdaleno Licensed, Certified Genetic Counselor [facility] 05-25-2023 Miscellaneous Notes The following approved medication [...] Myers RN May 25, 2023 10:06 AM Valentin in [place] is pharmacy. Please follow up with patient. documented in this encounter [facility] 05-17-2023 Miscellaneous Notes Spoke to Thao again, confirmed name/. Reviewed information regarding genetic testing. After our discussion, patient provided informed consent for SELF PAY Integrated BRACAnalysis with [facility] and SDHA single site mutation analysis. Order placed today. Smithpia said the following about the SDHA variant: This SDHA variant would be outside of our reportable range, as we unfortunately do not offer CNV analysis of SDHA at this time. Please let me know if you have any additional questions. Discussed with patient they they cannot detect the familial mutation. 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 The patient was offered SDHA single site mutation analysis through [facility] or self pay Integrated BRACAnalysis with [facility] and SDHA single site mutation analysis through [facility]. After considering the risks, benefits, and limitations, the patient chose to pursue and provided informed consent for the following testing: SELF PAY Integrated BRACAnalysis with [facility] and SDHA single site mutation analysis through [facility]. The [facility] panel includes APC, MICHAEL, AXIN2, BAP1, BARD1, BMPR1A, BRCA1, BRCA2, BRIP1, CDH1, CDK4, CDKN2A, CHEK2, CTNNA1, EGFR, EPCAM, FH, FLCN, GREM1, HOXB13, MEN1, MET, MITF, MLH1, MSH2, MSH3, MSH6, MUTYH, NTHL1, PALB2, PMS2, POLD1, POLE, PTEN, RAD51C, RAD51D, RET, SDHA, SDHB, SDHC, SDHD, SMAD4, STK11, TERT, TP53, TSC1, TSC2, and VHL [facility] looks at genes related to inherited breast, ovarian, pancreatic, prostate, colon, uterine, kidney, lung, endocrine, and stomach cancer, as well as inherited colon polyp and melanoma syndromes. We discussed that an NGS panel can rarely result in an unexpected finding which may or may not be related to the presenting phenotype. We discussed that [facility] may contact the patient by text or phone call regarding billing. The patient should watch for this communication and respond promptly. The patient should contact [employer] directly with any billing questions (ph. [phone]). Elsa Puentes MS, [facility] Licensed, Certified Genetic Counselor Called patient to [...] NTHL1, PALB2, PDGFRA, PMS2, POLD1, POLE, POT1, SWIZU5H, PTCH1, PTEN, RAD51C, RAD51D, RB1, RET, SDHA, SDHAF2, SDHB, SDHC, SDHD, SMAD4, SMARCA4, SMARCB1, SMARCE1, STK11, SUFU, ZWTX989, TP53, TSC1, TSC2, and VHL The Multi-Cancer panel looks at genes associated with cancers of the breast, gynecologic tract (ovarian, uterine/endometrial), gastrointestinal system (colorectal, gastric, pancreatic), endocrine glands (thyroid, parathyroid, pituitary, adrenal glands), genitourinary tract (renal/urinary tract, prostate), skin (melanoma, basal cell carcinoma), and brain/nervous system. AM CHECKING WITH [facility] FIRST ABOUT VARIANT BEFORE PROCEEDING, WILL CONTACT PATIENT WHEN READY TO MOVE FORWARD. Elsa Puentes MS, CGC Licensed, Certified Genetic Counselor documented in this encounter [facility] 04-21-2023 Note HNO ID: [id number] Author: ELSA PUENTES LGC Service: ? Author Type: Genetic Counselor Type: Progress Notes Filed: 05/18/2023 16:44 Note Text: [facility] Consultation Note Genetic Counselor: Elsa Puentes MS, [facility] Patient: Lissa Rivas Patient Name and confirmed at initiation of visit. The patient provided consent for a virtual visit by [id number] Queenie. I have communicated my name and active licensure. The patient's identity and physical location were verified at the time of this visit. Either the patient or their legal automotive leasing sales representative has been informed of the risks [...] Laterality Date EYE SURGERY HX 03/2020 [facility] CANCER SURVEILLANCE HISTORY: Mammograms: No Breast MRI's: [...] , descent and paternal ancestors are of Haitian descent. There is no Ashkenazi Uatsdin ancestry. There is no known consanguinity. A [...] We also revi (more content not included)... [facility] 04-21-2023 History of Present illness Narrative Images from the original note were not included. [facility] Consultation Note Genetic Counselor: Elsa Puentes MS, [facility] Patient: Lissa Rivas Patient Name and confirmed at initiation of visit. The patient provided consent for a virtual visit by Rachel Jerome. I have communicated my name and active licensure. The patient's identity and physical location were verified at the time of this visit. Either the patient or their legal automotive leasing sales representative has been informed of the risks [...] Procedure Laterality Date EYE SURGERY HX 03/2020 MICHAEL-Sid CANCER SURVEILLANCE HISTORY: Mammograms: No Breast MRI's: [...] , descent and paternal ancestors are of Haitian descent. There is no Ashkenazi Uatsdin ancestry. There is no known consanguinity. A [...] extend to insurances such as life insurance, alf care, or disability. The patient was seen for a total of 30 minutes, greater than 50% of which was spent afzy-zt-cals counseling. This plan is being carried out under the oversight of Dr. Annamarie Weiss. This note will also be sent to the referring provider via the electronic medical record. Elsa Puentes MS, [facility] CC: Dr. Fede Weiss documented in this encounter [facility] 04-18-2023 Miscellaneous Notes Lissa Rivas is a [...] Kim Khan MD documented in this encounter [facility] 04-07-2023 Consult note Formatting of th is [...] used ocp since teenager. Was seen [facility] for PCOS and placed on metformin. [...] Hysteroscopy Laparoscopy OPK (Ovulation Predictor Kit) Ovarian [facility] 10.91 High 01/04/2023 Saline Ultrasound Semen [...] which included preparing to see the patient, wund-iu-xqnc patient care, counseling and educating the patient/family/caregiver, and ordering medications, tests, or procedures. I have communicated my name and active licensure. The patient's identity and physical location were verified at the time of this visit. 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 Kim Khan MD documented in this encounter [facility] 02-08-2023 History of Present illness Narrative Patient is here for ultrasound. Please see image section in Epic for results. Kim Khan MD documented in this encounter [facility] 02-04-2023 Miscellaneous Notes 21 day progesterone level ordered. Ortega Morrissey APRN.CNP February 04, 2023 2:12 PM Pt states she has started her letrozole today documented in this encounter [facility] 06-26-2022 Evaluation note Encounter Date Diagnosis Assessment [...] May, Other Puncture wound material was printed [employer] Other 01-01-2021 History general Narrative - Reported* Type Description Date Medical History asthma Surgical History laser eye surgery, bilateral Hospitalization History Rash, age 5 [employer] [facility] [employer] Other Evaluation note* Diagnosis Encounter for fertility testing- Primary Fertility testing [facility] Diagnosis Secondary amenorrhea Absence of menstruation PCOS (polycystic ovarian syndrome) Polycystic ovaries documented [facility]* Diagnosis PCOS (polycystic ovarian syndrome)- Primary Polycystic ovaries Fertility testing documented [facility]* Diagnosis Family history of cancer- Primary Family history of unspecified malignant neoplasm Family history of gene mutation [facility]* Diagnosis Family history of breast cancer- Primary Family history of malignant neoplasm of breast Family history of prostate cancer Family history of malignant neoplasm of prostate [facility]* Diagnosis Procreative management- Primary Unspecified procreative management [facility] Diagnosis Monoallelic mutation of SDHA gene- Primary Localized enlarged lymph nodes Enlargement of lymph nodes Intra-abdominal and pelvic swelling, mass and lump, unspecified site documented [facility]* Diagnosis Encounter for fertility testing- Primary Fertility testing Pre-procedure lab exam Pre-procedural laboratory examination documented [facility]* Diagnosis Fertility testing [facility] Diagnosis Monoallelic mutation of SDHA gene- Primary Obesity, Class III, BMI 40-49.9 (morbid obesity) (HCC) Morbid obesity documented [facility]* Diagnosis Irregular menstrual cycle- Primary PCOS (polycystic ovarian syndrome) Polycystic ovaries [facility] Diagnosis Monoallelic mutation of SDHA gene- Primary [facility] Diagnosis Secondary amenorrhea- Primary Absence of menstruation documented [facility]* Diagnosis Secondary amenorrhea- Primary Absence of menstruation [facility] Diagnosis Screen for sexually transmitted diseases- Primary Screening examination for venereal disease Secondary amenorrhea Absence of menstruation Female infertility Female infertility of unspecified origin [facility] Diagnosis Procreation management investigation and testing- Primary Other investigation and testing for procreative management [facility] Diagnosis Treatment plan provided- Primary documented in this encounter [facility] note* Diagnosis Female infertility Female infertility of unspecified origin documented in this encounter [facility] note* Diagnosis Encounter for artificial insemination- Primary Artificial insemination documented in this encounter [facility] note* Diagnosis Procreation management investigation and testing- Primary Other investigation and testing for procreative management documented in this encounter [facility] note* Diagnosis Procreation management investigation and testing- Primary Other investigation and testing for procreative management Female infertility Female infertility of unspecified origin documented in this encounter [facility] note* Diagnosis Procreation management investigation and testing- Primary Other investigation and testing for procreative management documented in this encounter [facility] note* Diagnosis Procreation management investigation and testing- Primary Other investigation and testing for procreative management documented in this encounter [facility] note* Diagnosis Female infertility Female infertility of unspecified origin documented in this encounter [facility] note* Diagnosis Procreation management investigation and testing- Primary Other investigation and testing for procreative management documented in this encounter [facility] note* Diagnosis Female infertility- Primary Female infertility of unspecified origin documented in this encounter [facility] note* Diagnosis Female infertility- Primary Female infertility of unspecified origin documented in this encounter [facility] note* Diagnosis Encounter for artificial insemination- Primary Artificial insemination documented in this encounter [facility] note* Diagnosis Procreation management investigation and testing- Primary Other investigation and testing for procreative management documented in this encounter [facility] note* Diagnosis Female infertility- Primary Female infertility of unspecified origin documented in this encounter [facility] note* Diagnosis Encounter for gynecological examination without abnormal finding- Primary Screening for malignant neoplasm of cervix Screening for malignant neoplasm of the cervix Desire for BV (bacterial vaginosis) Unspecified vaginitis and vulvovaginitis documented in this encounter [facility] note* Diagnosis Procreation management investigation and testing- Primary Other investigation and testing for procreative management documented in this encounter [facility] note* Diagnosis Female infertility Female infertility of unspecified origin documented [facility]* Diagnosis Female infertility- Primary Female infertility of unspecified origin documented in this encounter [facility] note* Diagnosis Otalgia of both ears- Primary Temporomandibular joint disorder Unspecified temporomandibular joint disorders Chronic allergic rhinitis Postnasal drip documented in this encounter [facility] Work Phone: Evaluation note* Diagnosis Supervision of with history of infertility, first trimester- Primary examination or test, unconfirmed [facility]* Diagnosis Encounter for test, result positive- Primary examination or test, positive result [facility] Diagnosis Supervision of with history of infertility, first trimester- Primary [facility]* Diagnosis PCOS (polycystic ovarian syndrome)- Primary Polycystic ovaries [facility] Diagnosis Encounter for supervision of normal first in first trimester Encounter for drug screening documented in this encounter [facility]* Diagnosis Supervision of with history of infertility, first trimester [facility] Diagnosis Procreation management investigation and testing- Primary Other investigation and testing for procreative management [facility] Diagnosis Missed menses , unspecified gestational age Encounter for supervision of normal first in first trimester 9 weeks gestation of documented in this encounter [facility] HealthcareEvaluation note* Diagnosis First trimester state, incidental 13 weeks gestation of Urinary tract infection without hematuria, site unspecified documented in this encounter [facility] HealthcareEvaluation note* Diagnosis Onychomycosis- Primary Dermatophytosis of nail Onychodystrophy Other specified disease of nail Xerosis cutis Other specified disease of sebaceous glands Fissure in skin of both feet documented in this encounter [facility] HealthcareEvaluation note* Diagnosis Second trimester state, incidental 14 weeks gestation of Spotting in Spotting complicating , unspecified as to episode of care or not applicable documented in this encounter [facility] HealthcareEvaluation note* Diagnosis Monoallelic mutation of SDHA gene- Primary [facility] Diagnosis Diabetes mellitus screening Screening for diabetes mellitus Second trimester state, incidental 22 weeks gestation of documented in this encounter [facility] HealthcareEvaluation note* Diagnosis Annual physical exam- Primary Routine general medical examination at a health care facility Hepatic steatosis Other chronic 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 Polycystic ovaries Vitamin D deficiency Palpitations Murmur Undiagnosed cardiac murmurs documented in this encounter [facility] Diagnostic Procedure Only (Routine) - Pending Review Specialty Diagnoses / Procedures Referred By Blair beltran Referred To Contact XR IMAGING Diagnoses Fertility testing Procedures XR HYSTEROSALPINGOGRAM CATH & SALINE/CONTRAST SONOHYSTER/HYSTEROSALPI Fede Hairston MD [address] [place] [address] [place] [id number] Referral ID Status Reason Start Date Expiration Date Visits Requested Visits Authorized [id number] Pending Review Auto-Generat ed Referral 04/18/2023 05/17/2024 1 1 [facility] Diagnostic Procedure Only (Routine) - Pending Review Specialty Diagnoses / Procedures Referred By Blair beltran Referred To Contact [facility] Diagnoses Female infertility Procedures FOLLICULAR US WHI US PELVIC NONOBSTETRIC IMAGE CRISSTLynnette LIMITED/F/U Ortega Morrissey APRN.CNM [address] [facility] [place] [address] [address] Referral ID Status Reason Start Date Expiration Date Visits Requested Visits Authorized [id number] Pending Review Auto-Generat ed Referral 09/10/2023 09/09/2024 1 1 [facility] Diagnostic Procedure Only (Routine) - New Request Specialty Diagnoses / Procedures Referred By Blair beltran Referred To Contact [facility] Diagnoses Female infertility Procedures FOLLICULAR US WHI US PELVIC NONOBSTETRIC IMAGE JOE LIMITED/F/U Ortega Morrissey APRN.TELEVISION WRITER [address] [facility] [place] [address] [address] Referral ID Status Reason Start Date Expiration Date Visits Requested Visits Authorized [id number] New Request Auto-Generat ed Referral 12/13/2023 12/12/2024 1 1 [facility] Diagnostic Procedure Only (Routine) - New Request Specialty Diagnoses / Procedures Referred By Contac t Referred To Contact [facility] Diagnoses Female infertility Procedures FOLLICULAR US WHI US PELVIC NONOBSTETRIC IMAGE DCMTN LIMITED/F/U Ortega Morrissey APRN.CNP [address] [facility] [place] [address] [address] Referral ID Status Reason Start Date Expiration Date Visits Requested Visits Authorized [id number] New Request Auto-Generat ed Referral 4 02/14/2025 1 1 [facility] Diagnostic Procedure Only (Routine) - Authorized Specialty Diagnoses / Procedures Referred By Contac t Referred To Contact [facility] Diagnoses Supervision of with history of infertility, first trimester Procedures OBSTETRIC ULTRASOUND WHI US PREG UTERUS AFTER 1ST TRIMEST GESTATION Ortega Morrissey APRN.TELEVISION WRITER [address] [facility] [place] [address] [facility] [address] [place] [address] Referral ID Status Reason Start Date Expiration Date Visits Requested Visits Authorized [id number] Authorized Auto-Generat ed Referral 4 03/17/2025 1 1 [facility] Narrative* Diagnostic Procedure Only (Routine) - Closed Specialty Diagnoses / Procedures Referred By Contac t Referred To Contact [facility] Diagnoses Supervision of with history of infertility, first trimester Procedures OBSTETRIC ULTRASOUND WHI US PREG UTERUS AFTER 1ST TRIMEST GESTATION Ortega Morrissey APRN.TELEVISION WRITER [address] [facility] [place] [address] [address] Referral ID Status Reason Start Date Expiration Date V isits Requested Visits Authorized [id number] Closed Auto-Generate d Referral 03/17/2024 03/17/2025 1 1 [facility] Summary Purpose Family History No Family History [...] Referred By Contac t Referred To Contact [facility] Diagnoses Female infertility Procedures FOLLICULAR US WHI US PELVIC NONOBSTETRIC IMAGE DCMTN LIMITED/F/U Ortega Morrissey APRN.TELEVISION WRITER [address] [facility] [place] [address] [address] [place] [address] Referral ID Status Reason Start Date Expiration Date Visits Requested Visits Authorized [id number] Authorized Benefit Check 11/15/2023 03/28/2024 1 1 Specialty Diagnoses / Procedures Referred By Contac t Referred To Contact Ortega Morrissey APRN.TELEVISION WRITER [address] [facility] [place] [place] [address] Referral ID Status Reason Start Date Expiration Date Visits Re quested Visits Authorized [id number] Closed 1 1 Specialty Diagnoses / Procedures Referred By Contac t Referred To Contact Diagnoses Obesity, Class III, BMI 40-49.9 (morbid obesity) (HCC) Procedures ENDOCRINE MEDICAL WEIGHT MANAGEMENT OFFICE/OUTPATIENT [facility] 60 MINUTES Mirta Gallagher MD [address] [place] [address] Referral ID Status Reason Start Date Expiration Date Visits Requested Visits Authorized [id number] Authorized PCP Requested Referral 08/17/2023 08/16/2024 1 1 Specialty Diagnoses / Procedures Referred By Contac t Referred To Contact CT [facility] Diagnoses Intra-abdominal and pelvic swelling, mass and lump, unspecified site Procedures CT ABDOMEN W IVCON CT ABDOMEN W/CONTRAST Мария Laboy MD [address] [place] [address] [facility] [place] [address] Referral ID Status Reason Start Date Expiration Date Visits Requested Visits Authorized [id number] Pending Review Auto-Generat ed Referral 06/16/2023 07/15/2024 1 1 Specialty Diagnoses / Procedures Referred By Contac t Referred To Contact CT IMAGING Diagnoses Localized enlarged lymph nodes Procedures CT CHEST W IVCON DIAGNOSTIC COMPUTED TOMOGRAPHY THORAX W/CONTRAST Мария Laboy MD [address] [facility] [place] [address] [facility] [place] [address] Referral ID Status Reason Start Date Expiration Date Visits Requested Visits Authorized [id number] Pending Review Auto-Generat ed Referral 06/16/2023 07/15/2024 1 1 Specialty Diagnoses / Procedures Referred By Contac t Referred To Contact CT IMAGING Diagnoses Localized enlarged lymph nodes Procedures CT NECK SOFT TISSUE W IVCON CT SOFT TISSUE NECK W/CONTRAST MATERIAL Мария Laboy MD [address] [place] [address] [facility] [place] [address] Referral ID Status Reason Start Date Expiration Date Visits Requested Visits Authorized [id number] Pending Review Auto-Generat ed Referral 06/16/2023 07/15/2024 1 1 Additional Source Comments INFORMATION SOURCE (unrecogn ized section and content) DATE CREATED AUTHOR 12/06/2019 [facility] DATE CREATED AUTHOR AUTHOR'S ORGANIZ ATION 07/24/2023 [facility] DATE CREATED AUTHOR AUTHOR'S ORGANIZ ATION 02/25/2024 [facility] DATE CREATED AUTHOR AUTHOR'S ORGANIZ ATION 03/11/2024 [facility] DATE CREATED AUTHOR AUTHOR'S ORGANIZ ATION 03/11/2024 [facility] DATE CREATED AUTHOR AUTHOR'S ORGANIZ ATION 04/09/2024 [facility] DATE CREATED AUTHOR AUTHOR'S ORGANIZ ATION 07/23/2024 [facility] EPIC REASON FOR VISIT (unrecogniz ed section and content) Reason Comments Infertility Specialty Diagnoses / Procedures Referred By Contac t Referred To Contact [facility] Diagnoses Female infertility Procedures FOLLICULAR US [facility] US PELVIC NONOBSTETRIC IMAGE DCMTN LIMITED/F/U Ortega Morrissey, DEBBIE.TELEVISION WRITER [address] [facility] [place] [address] [facility] [address] [place] [address] Referral ID Status Reason Start Date Expiration Date V isits Requested Visits Authorized [id number] Closed Benefit Check 02/16/2024 03/28/2024 1 1 Reason Comments started letrozole Specialty Diagnoses / Procedures Referred By Blair t Referred To Contact 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 - Other Hereditary Para ganglioma-Pheochromocytoma Syndrome clinic Reason Comments Results Genetic Reason Comments Nurse Visit Specialty Diagnoses / Procedures Referred By Blair t Referred To Contact XR IMAGING Diagnoses Fertility testing Procedures XR HYSTEROSALPINGOGRAM CATH & SALINE/CONTRAST SONOHYSTER/HYSTEROSALPI HYSTEROSALPINGOGRAPHY RS&I URINE TEST Fede Hairston MD [address] [place] [address] [place] [address] Referral ID Status Reason Start Date Expiration Date V isits Requested Visits Authorized [id number] Closed Benefit Check 07/19/2023 03/28/2024 1 1 Reason Comments paraganglioma Reason Comments New Patient SHDA ref by Fina Tate Reason Comments lmp 07/23 no cycle since then Reason Comments Patient Question Reason Comments Treatment Planning Reason Comments Ortega lmp today/re us day 11-13 for iui Reason Comments trigger shot Specialty Diagnoses / Procedures Referred By Contac t Referred To Contact [facility] Diagnoses Female infertility Procedures FOLLICULAR US WHI US PELVIC NONOBSTETRIC IMAGE DCMTN LIMITED/F/U Ortega Morrissey, DEBBIE.TELEVISION WRITER [address] [facility] [place] [address] [facility] [address] [place] [address] Referral ID Status Reason Start Date Expiration Date Visits Re quested Visits Authorized [id number] Closed 09/14/2023 03/28/2024 1 1 Specialty Diagnoses / Procedures Referred By Contac t Referred To Contact [facility] Diagnoses Encounter for other procreative management Procedures ARTIFIC INSEMINATION INTRAUTERIN Ortega Morrissey, DEBBIE.TELEVISION WRITER [address] [facility] [place] [address] Ortega Morrissey APRN.TELEVISION WRITER [address] [facility] [place] [address] Referral ID Status Reason Start Date Expiration Date V isits Requested Visits Authorized [id number] Closed Benefit Check 09/17/2023 03/16/2024 1 1 Reason Comments iui 10/25 , cd 1 11/11 Reason Comments Treatment Planning Referral ID Status Reason Start Date Expiration Date V isits Requested Visits Authorized [id number] Closed Benefit Check 11/15/2023 03/28/2024 1 1 Specialty Diagnoses / Procedures Referred By Contac t Referred To Contact LABORATORY MEDICINE Diagnoses Encounter for other procreative management Procedures ARTIFIC INSEMINATION INTRAUTERIN Deshawn Riojas MD [address] [place] [address] [facility] [place] [address] [place] [address] Referral ID Status Reason Start Date Expiration Date V isits Requested Visits Authorized [id number] Closed Financial Clearance Required - Self Pay 11/27/2023 02/25/2024 1 1 Reason Comments LMP 12/12/23/ set up monitored cycle Patient Update Referral ID Status Reason Start Date Expiration Date V isits Requested Visits Authorized [id number] Closed Benefit Check 12/15/2023 03/28/2024 1 1 Reason Comments IUI Specialty Diagnoses / Procedures Referred By Contac t Referred To Contact REPRODUCTIVE ENDOCRINOLOGY & FERTILITY Diagnoses Encounter for other procreative management Female infertility, unspecified Procedures ARTIFIC INSEMINATION INTRAUTERIN Self Whi [facility] [address] [place] [address] Referral ID Status Reason Start Date Expiration Date Visits Requested Visits Authorized [id number] Authorized Benefit Check 09/15/2023 03/16/2024 2 2 [...] Visit Reason Comments 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 Ongoing for quite a while. Has tried OTC products for both issues. Reason Comments Annual Exam No lab ordered prior to visit. Patient is feeling good. She is 4 months . Source Comments (unrecognize d section and content) In the event this informatio n is protected by the Federal Confidentiality of Alcohol and Drug Abuse Patient Records regulations: The Federal rules restrict any use of the information to criminally investigate or prosecute any alcohol or drug abuse patient.[facility] the event this information is protected by the Federal Confidentiality of Alcohol and Drug Abuse Patient Records regulations: The Federal rules restrict any use of the information to criminally investigate or prosecute any alcohol or drug abuse patient.[facility] HospitalIn the event this information is protected by the Federal Confidentiality of Alcohol and Drug Abuse Patient Records regulations: The Federal rules restrict any use of the information to criminally investigate or prosecute any alcohol or drug abuse patient.[facility] HospitalIn the event this information is protected by the Federal Confidentiality of Alcohol and Drug Abuse Patient Records regulations: The Federal rules restrict any use of the information to criminally investigate or prosecute any alcohol or drug abuse patient.[facility] HospitalIn the event this information is protected by the Federal Confidentiality of Alcohol and Drug Abuse Patient Records regulations: The Federal rules restrict any use of the information to criminally investigate or prosecute any alcohol or drug abuse patient.[facility] HospitalIn the event this information is protected by the Federal Confidentiality of Alcohol and Drug Abuse Patient Records regulations: The Federal rules restrict any use of the information to criminally investigate or prosecute any alcohol or drug abuse patient.[facility] HospitalIn the event this information is protected by the Federal Confidentiality of Alcohol and Drug Abuse Patient Records regulations: The Federal rules restrict any use of the information to criminally investigate or prosecute any alcohol or drug abuse patient.[facility]In the event this information is protected by the Federal Confidentiality of Alcohol and Drug Abuse Patient Records regulations: The Federal rules restrict any use of the information to criminally investigate or prosecute any alcohol or drug abuse patient.[facility] HospitalIn the event this information is protected by the Federal Confidentiality of Alcohol and Drug Abuse Patient Records regulations: The Federal rules restrict any use of the information to criminally investigate or prosecute any alcohol or drug abuse patient.[facility] HospitalIn the event this information is protected by the Federal Confidentiality of Alcohol and Drug Abuse Patient Records regulations: The Federal rules restrict any use of the information to criminally investigate or prosecute any alcohol or drug abuse patient.[facility] HospitalIn the event this information is protected by the Federal Confidentiality of Alcohol and Drug Abuse Patient Records regulations: The Federal rules restrict any use of the information to criminally investigate or prosecute any alcohol or drug abuse patient.[facility] HospitalIn the event this information is protected by the Federal Confidentiality of Alcohol and Drug Abuse Patient Records regulations: The Federal rules restrict any use of the information to criminally investigate or prosecute any alcohol or drug abuse patient.[facility] HospitalIn the event this information is protected by the Federal Confidentiality of Alcohol and Drug Abuse Patient Records regulations: The Federal rules restrict any use of the information to criminally investigate or prosecute any alcohol or drug abuse patient.[facility] HospitalIn the event this information is protected by the Federal Confidentiality of Alcohol and Drug Abuse Patient Records regulations: The Federal rules restrict any use of the information to criminally investigate or prosecute any alcohol or drug abuse patient.[facility] HospitalIn the event this information is protected by the Federal Confidentiality of Alcohol and Drug Abuse Patient Records regulations: The Federal rules restrict any use of the information to criminally investigate or prosecute any alcohol or drug abuse patient.[facility] HospitalIn the event this information is protected by the Federal Confidentiality of Alcohol and Drug Abuse Patient Records regulations: The Federal rules restrict any use of the information to criminally investigate or prosecute any alcohol or drug abuse patient.[facility] HospitalIn the event this information is protected by the Federal Confidentiality of Alcohol and Drug Abuse Patient Records regulations: The Federal rules restrict any use of the information to criminally investigate or prosecute any alcohol or drug abuse patient.[facility] HospitalIn the event this information is protected by the Federal Confidentiality of Alcohol and Drug Abuse Patient Records regulations: The Federal rules restrict any use of the information to criminally investigate or prosecute any alcohol or drug abuse patient.[facility] HospitalIn the event this information is protected by the Federal Confidentiality of Alcohol and Drug Abuse Patient Records regulations: The Federal rules restrict any use of the information to criminally investigate or prosecute any alcohol or drug abuse patient.[facility] HospitalIn the event this information is protected by the Federal Confidentiality of Alcohol and Drug Abuse Patient Records regulations: The Federal rules restrict any use of the information to criminally investigate or prosecute any alcohol or drug abuse patient.[facility] HospitalIn the event this information is protected by the Federal Confidentiality of Alcohol and Drug Abuse Patient Records regulations: The Federal rules restrict any use of the information to criminally investigate or prosecute any alcohol or drug abuse patient.[facility] HospitalIn the event this information is protected by the Federal Confidentiality of Alcohol and Drug Abuse Patient Records regulations: The Federal rules restrict any use of the information to criminally investigate or prosecute any alcohol or drug abuse patient.[facility] HospitalIn the event this information is protected by the Federal Confidentiality of Alcohol and Drug Abuse Patient Records regulations: The Federal rules restrict any use of the information to criminally investigate or prosecute any alcohol or drug abuse patient.[facility] HospitalIn the event this information is protected by the Federal Confidentiality of Alcohol and Drug Abuse Patient Records regulations: The Federal rules restrict any use of the information to criminally investigate or prosecute any alcohol or drug abuse patient.[facility] HospitalIn the event this information is protected by the Federal Confidentiality of Alcohol and Drug Abuse Patient Records regulations: The Federal rules restrict any use of the information to criminally investigate or prosecute any alcohol or drug abuse patient.[facility] HospitalIn the event this information is protected by the Federal Confidentiality of Alcohol and Drug Abuse Patient Records regulations: The Federal rules restrict any use of the information to criminally investigate or prosecute any alcohol or drug abuse patient.[facility] HospitalIn the event this information is protected by the Federal Confidentiality of Alcohol and Drug Abuse Patient Records regulations: The Federal rules restrict any use of the information to criminally investigate or prosecute any alcohol or drug abuse patient.[facility] HospitalIn the event this information is protected by the Federal Confidentiality of Alcohol and Drug Abuse Patient Records regulations: The Federal rules restrict any use of the information to criminally investigate or prosecute any alcohol or drug abuse patient.[facility] HospitalIn the event this information is protected by the Federal Confidentiality of Alcohol and Drug Abuse Patient Records regulations: The Federal rules restrict any use of the information to criminally investigate or prosecute any alcohol or drug abuse patient.[facility] HospitalIn the event this information is protected by the Federal Confidentiality of Alcohol and Drug Abuse Patient Records regulations: The Federal rules restrict any use of the information to criminally investigate or prosecute any alcohol or drug abuse patient.[facility] HospitalIn the event this information is protected by the Federal Confidentiality of Alcohol and Drug Abuse Patient Records regulations: The Federal rules restrict any use of the information to criminally investigate or prosecute any alcohol or drug abuse patient.[facility] HospitalIn the event this information is protected by the Federal Confidentiality of Alcohol and Drug Abuse Patient Records regulations: The Federal rules restrict any use of the information to criminally investigate or prosecute any alcohol or drug abuse patient.[facility] HospitalIn the event this information is protected by the Federal Confidentiality of Alcohol and Drug Abuse Patient Records regulations: The Federal rules restrict any use of the information to criminally investigate or prosecute any alcohol or drug abuse patient.[facility] HospitalIn the event this information is protected by the Federal Confidentiality of Alcohol and Drug Abuse Patient Records regulations: The Federal rules restrict any use of the information to criminally investigate or prosecute any alcohol or drug abuse patient.[facility] HospitalIn the event this information is protected by the Federal Confidentiality of Alcohol and Drug Abuse Patient Records regulations: The Federal rules restrict any use of the information to criminally investigate or prosecute any alcohol or drug abuse patient.[facility] HospitalIn the event this information is protected by the Federal Confidentiality of Alcohol and Drug Abuse Patient Records regulations: The Federal rules restrict any use of the information to criminally investigate or prosecute any alcohol or drug abuse patient.[facility] HospitalIn the event this information is protected by the Federal Confidentiality of Alcohol and Drug Abuse Patient Records regulations: The Federal rules restrict any use of the information to criminally investigate or prosecute any alcohol or drug abuse patient.[facility] HospitalIn the event this information is protected by the Federal Confidentiality of Alcohol and Drug Abuse Patient Records regulations: The Federal rules restrict any use of the information to criminally investigate or prosecute any alcohol or drug abuse patient.[facility] HospitalIn the event this information is protected by the Federal Confidentiality of Alcohol and Drug Abuse Patient Records regulations: The Federal rules restrict any use of the information to criminally investigate or prosecute any alcohol or drug abuse patient.[facility] HospitalIn the event this information is protected by the Federal Confidentiality of Alcohol and Drug Abuse Patient Records regulations: The Federal rules restrict any use of the information to criminally investigate or prosecute any alcohol or drug abuse patient.[facility] HospitalIn the event this information is protected by the Federal Confidentiality of Alcohol and Drug Abuse Patient Records regulations: The Federal rules restrict any use of the information to criminally investigate or prosecute any alcohol or drug abuse patient.[facility] HospitalIn the event this information is protected by the Federal Confidentiality of Alcohol and Drug Abuse Patient Records regulations: The Federal rules restrict any use of the information to criminally investigate or prosecute any alcohol or drug abuse patient.[facility] HospitalIn the event this information is protected by the Federal Confidentiality of Alcohol and Drug Abuse Patient Records regulations: The Federal rules restrict any use of the information to criminally investigate or prosecute any alcohol or drug abuse patient.[facility] HospitalIn the event this information is protected by the Federal Confidentiality of Alcohol and Drug Abuse Patient Records regulations: The Federal rules restrict any use of the information to criminally investigate or prosecute any alcohol or drug abuse patient.[facility] HospitalIn the event this information is protected by the Federal Confidentiality of Alcohol and Drug Abuse Patient Records regulations: The Federal rules restrict any use of the information to criminally investigate or prosecute any alcohol or drug abuse patient.[facility] HospitalIn the event this information is protected by the Federal Confidentiality of Alcohol and Drug Abuse Patient Records regulations: The Federal rules restrict any use of the information to criminally investigate or prosecute any alcohol or drug abuse patient.[facility] HospitalIn the event this information is protected by the Federal Confidentiality of Alcohol and Drug Abuse Patient Records regulations: The Federal rules restrict any use of the information to criminally investigate or prosecute any alcohol or drug abuse patient.[facility] Care Teams (unrecognized sec tion and content) Home Theatre Technician Relationship Specialty Start Date End Date Robles Goldsmith DO [address] [place] [phone] Referring Obstetrics 10/13/22 Home Theatre Technician Relationship Specialty Start Date End Date Robles Goldsmith DO [address] [place] [phone] Referring Obstetrics 10/13/22 Home Theatre Technician Relationship Specialty Start Date End Date Robles Goldsmith DO [address] [place] [address] Referring Obstetrics 10/13/22 Home Theatre Technician Relationship Specialty Start Date End Date Robles Goldsmith DO [address] [place] [phone] Referring Obstetrics 10/13/22 Home Theatre Technician Relationship Specialty Start Date End Date Robles Goldsmith, [address] [place] [address] Referring Obstetrics 10/13/22 Home Theatre Technician Relationship Specialty Start Date End Date Robles Goldsmith DO [address] [place] [phone] Referring Obstetrics 10/13/22 Home Theatre Technician Relationship Specialty Start Date End Date Robles Goldsmith DO [address] [place] [address] Referring Obstetrics 10/13/22 Home Theatre Technician Relationship Specialty Start Date End Date Robles Goldsmith, DO [address] [place] [address] Referring Obstetrics 10/13/22 Home Theatre Technician Relationship Specialty Start Date End Date Robles Goldsmith, DO [address] [place] [address] Referring Obstetrics 10/13/22 Home Theatre Technician Relationship Specialty Start Date End Date Robles Goldsmith, DO [address] [place] [address] Referring Obstetrics 10/13/22 Home Theatre Technician Relationship Specialty Start Date End Date Robles Goldsmith, DO [address] [place] [address] Referring Obstetrics 10/13/22 Home Theatre Technician Relationship Specialty Start Date End Date Robles Goldsmith, DO [address] [place] [address] Referring Obstetrics 10/13/22 Home Theatre Technician Relationship Specialty Start Date End Date Robles Goldsmith, DO [address] [place] [address] Referring Obstetrics 10/13/22 Home Theatre Technician Relationship Specialty Start Date End Date Robles Goldsmith, DO [address] [place] [address] Referring Obstetrics 10/13/22 Home Theatre Technician Relationship Specialty Start Date End Date Rupal Robles Marquis, DO [address] [place] [phone] Referring Obstetrics 10/13/22 Home Theatre Technician Relationship Specialty Start Date End Date RupalRobles Benitez, DO [address] [place] [address] Referring Obstetrics 10/13/22 Home Theatre Technician Relationship Specialty Start Date End Date Rupal Robles Marquis, [address] [place] [address] Referring Obstetrics 10/13/22 Home Theatre Technician Relationship Specialty Start Date End Date Robles Goldsmith DO [address] [place] [address] Referring Obstetrics 10/13/22 Home Theatre Technician Relationship Specialty Start Date End Date Robles Goldsmith, DO [address] [place] [address] Referring Obstetrics 10/13/22 Home Theatre Technician Relationship Specialty Start Date End Date Lito Velazquez MD [address] [place] [address] PCP - General Internal Medicine 10/05/22 Home Theatre Technician Relationship Specialty Start Date End Date Lito Velazquez MD [address] [place] [address] PCP - General Internal Medicine 10/05/22 Home Theatre Technician Relationship Specialty Start Date End Date Lito Velazquez MD [address] [place] [phone] PCP - General Internal Medicine 02/14/24 Home Theatre Technician Relationship Specialty Start Date End Date Robles Goldsmith DO [address] [place] [phone] Referring Obstetrics 10/13/22 Home Theatre Technician Relationship Specialty Start Date End Date Lito Velazquez MD [address] [place] [address] PCP - General Internal Medicine 10/05/22 Home Theatre Technician Relationship Specialty Start Date End Date Robles Goldsmith DO [address] [place] [address] Referring Obstetrics 10/13/22 Home Theatre Technician Relationship Specialty Start Date End Date Lito Velazquez MD [address] [place] [address] PCP - General Internal Medicine 10/05/22 Home Theatre Technician Relationship Specialty Start Date End Date Lito Velazquez MD [address] [place] [address] PCP - General Internal Medicine 10/05/22 Home Theatre Technician Relationship Specialty Start Date End Date Lito Velazquez MD [address] [place] [address] PCP - General Internal Medicine 10/05/22 Home Theatre Technician Relationship Specialty Start Date End Date Lito Velazquez MD [address] [place] [address] PCP - General Internal Medicine 10/05/22 Home Theatre Technician Relationship Specialty Start Date End Date Lito Velazquez MD [address] [place] [address] PCP - General Internal Medicine 10/05/22 Home Theatre Technician Relationship Specialty Start Date End Date Rupal Robles BenitezDO [address] [place] [address] Referring Obstetrics 10/13/22 [place] [address] [place] [address] Registered Nurse 04/12/24 Home Theatre Technician Relationship Specialty Start Date End Date Lito Velazquez MD [address] [place] [address] PCP - General Internal Medicine 10/05/22 Home Theatre Technician Relationship Specialty Start Date End Date Lito Velazquez MD [address] [place] [address] PCP - General Internal Medicine 10/05/22 Home Theatre Technician Relationship Specialty Start Date End Date Lito Velazquez MD [address] [place] [address] PCP - General Internal Medicine 10/05/22 FOR [...] BE BASED ON THE PRIMARY CLINICAL RECORDS. [facility] provides no warranty or guarantee of the accuracy or completeness of information in this document.
== END 2024-08-04 17:00 | disposition home or self-care (01) ==
LOC: US 16:59
PROVIDERS: PCP Internal Medicine; Visit Provider Obstetrics & Gynecology
DX: Z36.2 Encounter for other antenatal screening follow-up (principal)
CPT/HCPCS: 76815

== ENCOUNTER 2024-08-23 09:41 | Outpatient (OUT) | payer OTHER, SELFPAY ==
--- OUTSIDE RECORDS SUMMARY | 2024-08-16 08:30 | XMS_ITS | Encounter Summary ---
Author Organization [facility] Address [address] [place] [address] [place] [address] Care Team Providers Care Linoleum Tile Floor Layer Name Role Phone Omer Velazquez MD Primary Care Provider [phone] Reason for Visit * Reason Comments Routine Visit Encounter Details Date Type Department Care Team (Late st Contact Info) Description 08/16/2024 8:30 AM EDT Routine [facility] [address] [place] [id number] Rupal Patel PA [address] [place], [facility]11 Second trimester ; 26 weeks gestation of Social History Tobacco Use Types Packs/Day Years [...] Sign Reading Time Taken Comments Blood Pressure 114/80 08/16/2024 8:38 AM EDT Pulse - - Temperature - - Respiratory Rate - - Oxygen Saturation - - Inhaled Oxygen Concentration - - Weight 103 kg (226 lb 4 oz) 08/16/2024 8:38 AM E DT Height - - Body Mass Index 40.08 07/18/2024 9:20 AM EDT documented in this encounter Progress Notes * FLACA Kovacs - 08/16/2024 8:30 AM EDT Reason for Appointment: Patient ID: Lissa Rivas is a 29 y.o. female who presents for Routine Visit Patient presents today for Return OB appointment. MEDICATIONS Current Outpatient Medications Medication Instructions albuterol HFA (Ventolin HFA) 90 mcg/act inhaler 2 puffs, Inhalation, Every 6 hours PRN ammonium lactate (Amlactin) 12 % cream Topical, Daily cholecalciferol (Vitamin D-3) 50 MCG (1999 UT) tablet 2 tablets, Daily MV-Min-Fe Fum-FA-DHA ( [...] disease Paternal Grandmother Hina Stroke Paternal Grandmother Ihna Atrial fibrillation Paternal Grandmother Hina COPD Paternal [...] nursing note reviewed. Exam conducted with a shake feeder present. Vitals: Estimated body mass index is 40.08 kg/m?? as calculated from the following: Height as of 07/18/24: 5' 3 . Weight as of this encounter: 226 lb 4 oz. BP: 114/80 Patient's last menstrual period was 02/13/2024 (approximate). ASSESSMENT & PLAN Return OB: Patient presents today for a routine obstetrics appointment. Patient is currently 26w3d . Patient states she is doing well but has complaints of being tired due to current . Patient has verbalizes frequent movement. labor precautions was discussed/given and patient was instructed to perform kick counts three times a day. Orders Placed This Encounter Procedures POCT urinalysis dipstick manually resulted Follow Up: Patient is to return to office in 2 week for routine OB appointment. Documented by Rosemary Hooper MA on behalf of: FLACA Kovacs documented in this encounter Plan of Treatment Upcoming Encounters Date Type Department Care Team (Late st Contact Info) Description 08/30/2024 11:20 AM EDT Routine [facility] [address] [place] [address] Saravanan Ahumada, DO [address] [place], [place] [id number] 07/24/2025 9:15 AM EDT Office Visit [facility] [address] [place] [phone] documented as of this encounter Goals Goal Patient Goal Type Associated Problems Recent Progress Patient-Stated? Author Reminders Care Plan OB Reminders No Open Scheduling, Background documented as of this encounter Procedures Procedure Name Priority Date/Time Associated Diagnosis Comments POCT URINALYSIS DIPSTICK Routine 08/16/2024 8:45 AM EDT Second trimester documented in this encounter Results * (ABNORMAL) POCT urinalysis dipstick manually resulted (08/16/2024 8:45 AM EDT) Color, UA Yellow Clarity, UA Clear Glucose, UA Positive Negative - 2000(110) ++++ mg/dL Comment:100mg/dL Bilirubin, UA Negative Negative - 4(70) +++ mg/dL Ketones, UA Positive Negative - 160(16) ++++ mg/dL Comment:15mg/dL Spec Grav, UA 1.020 1 - 1.03 Blood, UA Negative Negative - 50 Jorge Luis/mcL pH, UA 6.5 5 - 9 Protein, UA Negative Negative - 2000(20) ++++ mg/dL Urobilinogen, UA 0.2 0.2 - 12 mg/dL Leukocytes, UA Negative Negative - 500+++ Flori/mcL Nitrite, UA Negative Negative - Positive Urine 08/16/2024 8:45 AM EDT Rupal THAYER POINT OF CARE TEST ENTER/EDIT OR DERABLES Final Result documented in this encounter Visit Diagnoses Diagnosis Second trimester state, incidental 26 weeks gestation of documented in this encounter Additional Health Concerns Active Problems Noted Date Diagnosed Date OB Reminders 04/30/2024 documented as of this encounter Care Teams Linoleum Tile Floor Layer Relationship Specialty Start Date End Date Omer Velazquez MD [address] [place] [address] PCP - General Internal Medicine 10/05/22 documented as of this encounter
--- OUTSIDE RECORDS SUMMARY | 2024-08-23 09:44 | XMS_ITS | Encounter Summary ---
Author Organization [facility] Address [address] [place] [address] Care Team Providers Care Laboratory Mechanical Technician Name Role Phone Omer Velazquez MD Primary Care Provider [phone] Encounter Details Date Type Department Care Team (Late st Contact Info) Description 08/16/2024 Bamboo flowsheet [facility] OB [address] [place] [address] Rupal Patel PA [address] [place], [facility]11 Social History Tobacco Use Types Packs/Day Years [...] on file documented as of this encounter Plan of Treatment Upcoming Encounters Date Type Department Care Team (Late st Contact Info) Description 08/30/2024 11:20 AM EDT Routine [facility] OB [address] [place] [address] Saravanan Ahumada, DO [address] [facility] [address] [place] [address] 07/24/2025 9:15 AM EDT Office Visit [facility] [address] [place] [phone] documented as of this encounter Goals Goal Patient Goal Type Associated Problems Recent Progress Patient-Stated? Author Reminders Care Plan OB Reminders No Open Scheduling, Background documented as of this encounter Visit Diagnoses Not on filedocumented in this encounter Additional Health Concerns Active Problems Noted Date Diagnosed Date OB Reminders 04/30/2024 documented as of this encounter Care Teams Laboratory Mechanical Technician Relationship Specialty Start Date End Date Omer Velazquez MD [address] [place] [address] PCP - General Internal Medicine 10/05/22 documented as of this encounter
--- OUTSIDE RECORDS SUMMARY | 2024-08-23 09:44 | XMS_ITS ---
Author Organization [facility] (ClinicalSummary Clone) Address Unknown Care Team Providers Care Database Marketing Specialist Name Role Phone Unavailable Primary Care Physician Unavailab le Results * [UNITY] ANEUPLOIDY NIPT Performed by: [employer] Value Range Date Fraction 4.3% 05/22/2024 05 :07 pm UTC Rh(D) NIPT RhD DETECTED 05/22/2024 05:0 7 pm UTC Sex Chromosome Aneuploidy NOT DETECTED 05:07 pm UTC Monosomy X LOW RISK <1 in 10,000 2024 05:07 pm UTC Trisomy 13 LOW RISK <1 in 10,000 2024 05:07 pm UTC Trisomy 18 LOW RISK <1 in 10,000 2024 05:07 pm UTC Trisomy 21 LOW RISK <1 in 10,000 2024 05:07 pm UTC Sex MALE 05/22/2024 05:0 7 pm UTC Gestation GAMA 05/22/19 25 05:07 pm UTC This result reflects an amended result REVISED REPORT to include Rh(D) NIPT. 05/22/2024 05:07 pm UTC For detailed report, see PDF See PDF 05/22/2024 05:07 pm UTC 05/22/2024 05:0 7 pm UTC Social History Observation Value Start Date End Date
--- OUTSIDE RECORDS SUMMARY | 2024-08-23 09:44 | XMS_ITS | Clinical Summary ---
Author Organization [facility] Address [address] [place] [address] Care Team Providers Care House Cleaner Name Role Phone Robles Goldsmith DO Unavailable Josefina Harris RN Unavailable [phone] Allergies No known active allergies Medications PNV no.95/ferrous fum/folic ac ( ORAL) Take 1 tablet by mouth once daily. Active progesterone micronized (PROMETRIUM) 200 mg capsule Use 1 capsule vaginally two times a day. 180 capsule 4 Active metFORMIN ER (GLUCOPHAGE XR) 500 mg 24 hr tablet Take 3 tablets by mouth daily with breakfast. Start with 1 tablet daily and slowly increase the dose up to 3 tablets daily. 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 Fertility testing 07/29/2023 Seasonal allergies 10/05/2022 12/29/2022 Polycystic ovaries 10/05/2022 12/29/2022 Obesity due to excess calories 10/05/2022 1 Menorrhagia 10/05/2022 12/29/2022 Genital herpes simplex 10/05/2022 Generalized anxiety disorder 10/05/202205/2022 Chronic fatigue syndrome 10/05/2022 023 Comments Yes Resolved Problems Problem Noted Date Diagnosed Date Resolved Date GERD (gastroesophageal reflux disease) 10/05/202208/17/2023 Encounters Date Type Department Care Team Description 06/30/2024 Patient Msg Otolaryngology [address] [address] Josefina Harris RN SDHA follow up from Last 3 Months Family History Medical History Relation Comments Arrhythmia Father Atrial fibrillat ion Asthma Father COPD Father Diabetes Father Heart disease Father Hyperlipidemia Father Hypertension Father Kidney Disease Father Stroke Father Arrhythmia Half-sister Atrial fibrillat ion Breast Cancer Maternal Aunt Breast Cancer Maternal Grandmother Prostate Cancer Maternal Uncle 1 metastatic Lung Cancer Maternal Uncle 2 Breast Cancer Maternal great-grandmother Hypertension Mother Arrhythmia Paternal Grandmother Atrial fibr illation Arthritis Paternal Grandmother COPD Paternal Grandmother Diabetes Paternal Grandmother Heart disease Paternal Grandmother Stroke Paternal Grandmother Relation Status Comments Father Alive Half-brother Alive Half-sister Alive Maternal Aunt Alive Maternal Grandmother Alive Maternal Uncle 1 Maternal Uncle 2 Alive Maternal great-grandmother Mother Alive Paternal Grandfather Paternal Grandmother Social History Tobacco Use Types Packs/Day Years Used Date Smoking Tobacco: Never Smokeless Tobacco: Never Tobacco Cessation:Counseling Given: Not Answered Alcohol Use Standard Drinks/Week Comments Yes 0 (1 standard drink = 0.6 oz pur e alcohol) rare, socially Area Deprivation Index Answer Date Ibrahima rded National Score (1-100), lower number is lower ri sk 64 12/21/2023 State Score (1-10), lower number is lower risk 4 12/21/2023 Data from: https://www.neighborhoodatlas.medicine.[facility].edu/. Last address used for calculation [address] 12/21/2023 Comments Yes Sex and Gender Information Value Date Recorded Sex Assigned at Female 01/04/2023 6:38 PM EDT Legal Sex Female 10:39 AM EDT Gender Identity Female 01/04/2023 6:38 PM EDT Sexual Orientation Not on file Last Filed Vital Signs Vital Sign Reading Time Taken Comments Blood Pressure 129/79 08/17/2023 10:02 AM EDT Pulse 73 08/17/2023 10:02 AM EDT Temperature - - Respiratory Rate - - Oxygen Saturation - - Inhaled Oxygen Concentration - - Weight 104.1 kg (229 lb 8 oz) 08/17/2023 10:02 A M EDT Height 160 cm (5' 3 ) 01/04/2023 8:44 AM EDT Body Mass Index 40.65 01/04/2023 8:44 AM EDT Plan of Treatment Upcoming Encounters Date Type Department Care Team (Latest Contact Info) Description 09/05/2024 1:45 PM EDT Office Visit Otolarynogology [address] [place] [address] Franklin Laboy MD [address] [place] [address] Monoallelic mutation of SDHA gene 09/05/2024 2:00 PM EDT Results Only Main [place] [address] [address] [place] [address] SDHA 09/11/2024 9:00 AM EDT [facility] Endocrinology [address] [place] [address] Mirta Valderrama MD [address] [place] [address] Monoallelic mutation of SDHA gene Health Maintenance Due Date Last Done Comments Depression Screening 2013 Cervical Cancer Screening 2016 Covid-19 Vaccine (2023-2 5 season) 2023 Influenza Vaccine (Season Ended) 2024 01/31/20, 02/13/2009 DTaP,Tdap,Td Vaccine (7 - Td or Tdap) 06/26/2032 06/26/2022, 08/10/2000, 08/04/1996, Additional history exists RSV Vaccine (1 - 1-dose 75+ series) 2070 Hepatitis B Vaccine Completed 03/17/1996, 1995, 1995 HIV Screening Completed 09/13/2023 Hepatitis C Screening Completed 09/13/2023 Procedures Procedure Name Priority Date/Time Associated Diagnosis Comments HIV 1/2 COMBO WITH REFLEX TO DIFFERENTIATION Routine 09/13/2023 8:52 AM EDT Screen for sexually transmitted diseases HEPATITIS C ANTIBODY IA WITH CONFIRMATION Routine 09/13/2023 8:52 AM EDT Screen for sexually transmitted diseases from Last 3 Months or Most Recently Relevant to Health Maintenance Results * HIV 1/2 COMBO WITH REFLEX TO DIFFERENTIATION (09/13/2023 8:52 AM EDT) HIV 12 Combo (Ag/Ab) Nonreactive Nonreactive 09/13/2023 9:15 PM EDT [facility] HIV-1/2 AB (Confirmatory) 09/13/2023 9:15 PM EDT [facility] Comment:Test not indicated. HIV Interpretation 09/13/2023 9:15 PM EDT [facility] Comment: No evidence of HIV-1 or HIV-2 infection. Should recent infection be suspected, repeat testing may be considered 2-3 weeks after this draw. [place] Rev. Code 3701.243(E): This information has been disclosed to you from confidential records protected from disclosure by state law. You shall make no further disclosure of this information without the specific, written, and informed release of the individual to whom it pertains or as otherwise permitted by state law. A general authorization for the release of medical or other information is not sufficient for the purpose of the release of HIV test results or diagnoses. Blood BLOOD SPECIMEN / Unknown Venipuncture / Unknown 09/13/2023 8:52 AM EDT 09/13/2023 8:52 AM EDT Haritha Casiano APRN.[facility] Final R esult [facility] [address] * HEPATITIS C ANTIBODY IA WITH CONFIRMATION (09/13/2023 8:52 AM EDT) Hep C Antibody IA Negative Negative 09/13/2023 9:06 PM EDT [facility] Comment:The result suggests no evidence of active infection with Hepatitis C virus. Should recent infection be suspected, repeat testing may be considered 4-6 weeks after this draw. Blood BLOOD SPECIMEN / Unknown Venipuncture / Unknown 09/13/2023 8:52 AM EDT 09/13/2023 8:52 AM EDT us Haritha Casiano [employer] OFFICER.[facility] Final R esult [facility] [address] [facility] [address] [place] [address], [place] from Last 3 Months or Most Recently Relevant to Health Maintenance [address] [place] [address] [employer] Care Teams House Cleaner Relationship Specialty Start Date End Date Robles Goldsmith DO [address] [place] [address] Referring Obstetrics 10/13/22 Josefina Harris, ARIC [address] [place] [address] Specialty Principal Architectural Firm 04/12/24
--- OUTSIDE RECORDS SUMMARY | 2024-08-23 09:44 | XMS_ITS | Encounter Summary ---
Author Organization [facility] Address [address] [place] [address] Care Team Providers Care Parts Lister Name Role Phone Omer Velazquez MD Primary Care Provider [phone] Encounter Details Date Type Department Care Team (Late st Contact Info) Description 05/22/2024 Abstract [facility] OB [address] [place] [address] Saravanan Ahumada, DO [address] [place], [facility]11 Social History Tobacco Use Types Packs/Day Years Used Date Smoking Tobacco: Never Smokeless Tobacco: Never Alcohol Use Standard Drinks/Week Comments Not Currently 0 (1 standard drink = 0.6 oz [...] Date Recorded Patient Health Questionnaire-2 Score 0 02/15/2024 Estimated Date of Delivery Comme nts Yes [...] AM EDT Routine [facility] OB [address] [address] Saravanan Ahumada, DO [address] [place] [address] 07/24/2025 9:15 AM EDT Office Visit [facility] [address] [place] [address] documented as of this encounter Goals Goal Patient Goal Type Associated Problems Recent Progress Patient-Stated? Author Reminders Care Plan OB Reminders No Open Scheduling, Background documented as of this encounter Visit Diagnoses Not on filedocumented in this encounter Additional Health Concerns Active Problems Noted Date Diagnosed Date OB Reminders 04/30/2024 documented as of this encounter Care Teams Parts Lister Relationship Specialty Start Date End Date Omer Velazquez MD [address] [place] [address] PCP - General Internal Medicine 10/05/22 documented as of this encounter
--- OUTSIDE RECORDS SUMMARY | 2024-08-23 09:44 | XMS_ITS | Encounter Summary ---
Author Organization [facility] Address [address] [place] [address] Care Team Providers Care Route Clerk Name Role Phone Robles Goldsmith DO Unavailable [phone] Josefina Harris RN Unavailable [phone] Source Comments In the event this information is protected by the Federal Confidentiality of Alcohol and Drug AbusePatient Records regulations: The Federal rules restrict any use of the information to criminally investigate or prosecute any alcohol or drug abuse patient.[facility] Encounter Details Date Type Department Care Team (Late st Contact Info) Description 07/21/2023 Get Medical Advice [facility] [address] [place], [place] [id number] [place], [place] [address] [place] [address] referral for genetics testing Social History Tobacco Use Types Packs/Day Years Used Date Smoking Tobacco: Never Smokeless Tobacco: Never Alcohol Use Standard Drinks/Week Comments Yes 0 (1 standard drink = 0.6 oz pur e alcohol) rare, socially Comments No Sex and Gender Information Value Date Recorded Sex Assigned at Female 01/04/2023 6:38 PM EDT Legal Sex Female 10:39 AM EDT Gender Identity Female 01/04/2023 6:38 PM EDT Sexual Orientation Not on file documented as of this encounter Plan of Treatment Upcoming Encounters Date Type Department Care Team (Latest Contact Info) Description 09/05/2024 1:45 PM EDT Office Visit Otolarynogology [address] [place] [address] Franklin Laboy MD [address] [place] [address] Monoallelic mutation of SDHA gene 09/05/2024 2:00 PM EDT Results Only Main [place] [address] [address] [place] [address] SDHA 09/11/2024 9:00 AM EDT [facility] Endocrinology [address] [place] [address] Mirta Valderrama MD [address] [place], [place] [id number] Monoallelic mutation of SDHA gene documented as of this encounter Visit Diagnoses Not on filedocumented in this encounter Care Teams Route Clerk Relationship Specialty Start Date End Date Robles Goldsmith DO [address] [phone] Referring Obstetrics 10/13/22 Josefina Harris, ARIC [address] [place] [address] Specialty Devulcanizer Head 04/12/24 documented as of this encounter
--- OUTSIDE RECORDS SUMMARY | 2024-08-23 09:44 | XMS_ITS | Encounter Summary ---
Author Organization [facility] Address [address] [place] [address] Care Team Providers Care Barrel Cooper Name Role Phone Omer Velazquez MD Primary Care Provider [phone] Encounter Details Date Type Department Care Team (Late st Contact Info) Description 05/23/2024 Abstract [facility] OB [address] [address] Kayla Ashley LPN Social History Tobacco Use Types Packs/Day Years [...] AM EDT Routine [facility] B[facility] OB [address] [address] Saravanan Ahumada, [address] [place] [address] 07/24/2025 9:15 AM EDT Office Visit [facility] [address] [place] [address] documented as of this encounter Goals Goal Patient Goal Type Associated Problems Recent Progress Patient-Stated? Author Reminders Care Plan OB Reminders No Open Scheduling, Background documented as of this encounter Visit Diagnoses Not on filedocumented in this encounter Additional Health Concerns Active Problems Noted Date Diagnosed Date OB Reminders 04/30/2024 documented as of this encounter Care Teams Barrel Cooper Relationship Specialty Start Date End Date Omer Velazquez MD [address] [place] [address] PCP - General Internal Medicine 10/05/22 documented as of this encounter
--- OUTSIDE RECORDS SUMMARY | 2024-08-23 09:44 | XMS_ITS | Clinical Summary ---
Author Organization [facility] Address [address] [place] [address] Care Team Providers Care Vehicle Damage Appraiser Name Role Phone Lito Guerrero MD Primary Care Provider [phone] Allergies No known active allergies Medications cholecalciferol (Vitamin D-3) 50 MCG (1999 UT) tablet Take 2 tablets by mouth in the morning. 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 Hepatic steatosis 07/13/2023 Vitamin D deficiency 01/12/2023 Genital herpes simplex 10/05/2022 Menorrhagia 10/05/2022 Polycystic ovaries 10/05/2022 Seasonal allergies 10/05/2022 Estimated Date of Delivery Comme nts Yes 11/19/2024 Based on last me nstrual period of 02/13/2024 (Approximate) Resolved Problems Problem Noted Date Diagnosed Date Resolved Date Chronic fatigue syndrome 10/05/2022 Encounters Date Type Department Care Team Description 08/23/2024 Travel 08/16/2024 8:30 AM EDT Routine [facility] [address] [place] [address] Rupal Patel PA Second trimester ; 26 weeks gestation of 08/16/2024 Bamboo flowsheet [facility] [address] [place] [address] Rupal Patel PA 08/14/2024 Telephone [facility] [address] [place] [address] Lito Guerrero MD Med Refill 08/09/2024 Travel 08/07/2024 Clinisync Result Encounter [facility] External Department Unsolicited Provider, Generic External Data 07/18/2024 9:15 AM EDT Office Visit [facility] [address] [place] [address] Lito Guerrero MD Annual physical exam (Primary Dx); Hepatic steatosis; Monoallelic mutation of SDHA gene; Polycystic ovaries; Vitamin D deficiency; Palpitations; Murmur 07/18/2024 Travel 07/17/2024 10:40 AM EDT Routine [facility] [address] [place] [address] Negar Ahumada DO Diabetes mellitus screening; Second trimester ; 22 weeks gestation of 07/17/2024 Bamboo flowsheet [facility] [address] [place] [address] [phone] Negar Ahumada DO 07/11/2024 Travel 07/07/2024 Telephone [facility] [address] [place] [address] Symone Hunter MA 07/05/2024 8:00 AM EDT Ancillary Procedure [facility] [address] [place] [address] Screening, , for anatomic survey 06/27/2024 Orders Only [facility] [address] [place] [address] Symone Hunter MA 06/19/2024 10:15 AM EDT Ancillary Procedure [facility] [place] [address] [place] [address] Spotting in 06/19/2024 8:30 AM EDT Routine [facility] [address] [place] [address] Negar Ahumada, Second trimester ; 18 weeks gestation of ; Well woman exam with routine gynecological exam; Exposure to STD; Need for maternal serum alpha-protein (MSAFP) screening; Screening, , for anatomic survey 06/19/2024 Clinisync Result Encounter [facility] External Department Unsolicited Provider, Generic External Data 06/19/2024 Abstract [facility] [address] [place] [address] Negar Ahumada, 06/19/2024 Abstract [facility] [address] [place] [address] [place] [address] Negar Ahumada, 06/19/2024 Bamboo flowsheet [facility] [place] [address] [place] [address] Negar Ahumada, 06/12/2024 Travel 06/07/2024 Abstract [facility] [address] [place] [address] Negar Ahumada, from Last 3 Months Immunizations Immunization Administration Dates Next Due DTP 1995,1995 DTaP, Unspecified 08/10/2000,08/04/1996,03/17/19 96 HPV 9-Valent 08/12/2015,04/10/2015,12/05/2014 Hep B, Adolescent or Pediatric 03/17/1996,1995,1995 HiB, unspecified 08/04/1996, 6,1995,06/07 IPV 08/10/2000 Influenza, seasonal, injecta ble, preservative free 01/30/2015 MMR 05/04/2023,08/10/2000,04/21/1996 Meningococcal MCV4P 08/12/2006 Novel [id number], preservative-free 02/13/2009 OPV 03/17/1996,1995,1995 Tdap 06/26/2022 Varicella 08/04/1996 Family History Medical History Relation Name Comments Asthma Father Franklin Atrial fibrillation Father Franklin COPD Father Franklin Diabetes Father Franklin Heart disease Father Franklin Hyperlipidemia Father Franklin Hypertension Father Franklin Kidney disease Father Franklin Stroke Father Franklin Breast cancer Maternal Grandmother Hypertension Mother Estee SDHA Mother Estee Lung cancer Mother's Brother Prostate cancer Mother's Brother Breast cancer Mother's Sister Arthritis Paternal Grandmother Hina Atrial fibrillation Paternal Grandmother Hina COPD Paternal Grandmother Hina Diabetes Paternal Grandmother Hina Heart disease Paternal Grandmother Hina Stroke Paternal Grandmother Hina Atrial fibrillation Sister Relation Name Status Comments Father Franklin Alive Maternal Grandmother Mother Estee Alive Mother's Brother Mother's Sister Paternal Grandmother Hina Sister Social History Tobacco Use Types Packs/Day Years [...] Not on file N ot on file Last Filed Vital Signs Vital Sign Reading Time Taken Comments Blood Pressure 114/80 08/16/2024 8:38 AM EDT Pulse 90 07/18/2024 9:20 AM EDT Temperature - - Respiratory Rate - - Oxygen Saturation 98% 07/18/2024 9:20 AM EDT Inhaled Oxygen Concentration - - Weight 103 kg (226 lb 4 oz) 08/16/2024 8:38 AM E DT Height 160 cm (5' 3 ) 07/18/2024 9:20 AM EDT Body Mass Index 40.08 07/18/2024 9:20 AM EDT Plan of Treatment Upcoming Encounters Date Type Department Care Team (Late st Contact Info) Description 08/30/2024 11:20 AM EDT Routine [facility] [address] [facility] [place] [address] Negar Ahumada, DO [address] [place] [address] 07/24/2025 9:15 AM EDT Office Visit [facility] [address] [place] [address] Health Maintenance Due Date Last Done Comments Influenza Vaccine (Season Ended) 2024 01/31/20 15 Goals Goal Patient Goal Type Associated Problems Recent Progress Patient-Stated? Author Reminders Care Plan OB Reminders No Open Scheduling, Background Procedures Procedure Name Priority Date/Time Associated Diagnosis Comments POCT URINALYSIS DIPSTICK Routine 08/16/2024 8:45 AM EDT Second trimester US OB INCOMPLETE ANATOMY 08/07/2024 9:48 AM EDT POCT URINALYSIS DIPSTICK Routine 07/17/2024 11:08 AM EDT 22 weeks gestation of US OB 14+ WEEKS ANATOMY SCAN Routine 07/05/2024 9:14 AM EDT Screening, , for anatomic survey US OB LIMITED 1+ FETUSES Routine 06/20/2024 9:58 AM EDT Second trimester RECURRENT VAGINITIS (HTRX) Routine 06/19/2024 1:47 PM EDT AFP, SERUM, OPEN SPINA BIFIDA Routine 06/19/2024 11:13 AM EDT POCT URINALYSIS DIPSTICK Routine 06/19/2024 9:27 AM EDT 18 weeks gestation of IGP,APTIMA HPV,AGE GDLN Routine 06/19/2024 9:02 AM EDT PAP SMEAR Routine 06/19/2024 12:00 AM EDT from Last 3 Months Results * (ABNORMAL) POCT urinalysis dipstick manually resulted (08/16/2024 8:45 AM EDT) Only the most recent of3 resultswithin the time period is included. Color, UA Yellow Clarity, UA Clear Glucose, UA Positive Negative - 1999(110) ++++ mg/dL Comment:100mg/dL Bilirubin, UA Negative Negative [...] - Positive Urine 08/16/2024 8:45 AM EDT us Rupal THAYER POINT OF CARE TEST ENTER/EDIT OR DERABLES Final Result * US OB INCOMPLETE ANATOMY (08/07/2024 9:48 AM EDT) Anatomical Region Laterality Modality Other 08/07/2024 9:48 AM EDT Narrative 08/07/2024 9:50 [place] [address] Ultrasound Report Signed Patient: LISSA ROJAS MR#: [id number] : 1995 Acct:[id number] Age/Sex: 29 / F ADM Date: 08/04/24 Loc: US Attending Dr: Negar Ahumada D.O. Ordering Physician: Negar Ahumada D.O. Date of Service: 08/04/24 Procedure(s): US OB incomplete anatomy Accession Number(s): [id number] cc: Negar Ahumada D.O.; LITO GUERRERO [place] [id number] Patient Name: LISSA ROJAS MRN: [id number] date: 1995 Sex: F Assigned Patient Location: US Current Patient Location: Accession/Order Number: [id number] Exam Date: 08/07/2024 09:41 Report Date: 08/07/2024 09:48 At the request of: NEGAR AHUMADA DO Procedure: US OB incomplete anatomy ULTRASOUND OB INCOMPLETE ANATOMY COMPARISON: None CLINICAL DATA: Incomplete assessment of outflow tracts There is a single live intrauterine gestation in cephalic presentation. There is cardiac activity with heart rate of 145 bpm. The amniotic fluid volume is subjectively normal. A four-chamber heart is identified. The left and right ventricular outflow tracts are identified. A tiny 2 mm echogenic focus is seen within the right ventricle which is usually considered a normal variant. US/US OB incomplete anatomy IMPRESSION: SINGLE LIVE INTRAUTERINE GESTATION. SATISFACTORY VISUALIZATION OF THE OUTFLOW TRACTS. Impression dictated by: Paula Gage M.D. 08/07/2024 9:48 AM Dictation Location: [place] [address] Electronically authenticated by: [id number] Y Date: 08/07/2024 09:48 Dictated By: Paula Gage M.D. Signed By: 08/07/2450 DD/ 7 TD/TT: Talent Acquisition Administrator: Procedure Note Radiology, Radiologist, - 08/07/[address] [address] Ultrasound Report Signed Patient: ALINA ROJASR#: [id number] : 1995Acct:[id number] Age/Sex: 29 / FADM Date: 08/04/24 Loc: US Attending Dr: Negar Ahumada D.O. Ordering Physician: Negar Ahumada D.O. Date of Service: 08/04/24 Procedure(s): US OB incomplete anatomy Accession Number(s): [id number] cc: Negar Ahumada D.O.; LITO GUERRERO [address] [address] Patient Name: LISSA ROJAS MRN: [id number] date: 1995 Sex: F Assigned Patient Location: US Current Patient Location: Accession/Order Number: [id number] Exam Date: 08/07/2024 09:41 Report Date: 08/07/2024 09:48 At the request of: NEGAR AHUMADA DO Procedure: US OB incomplete anatomy ULTRASOUND OB INCOMPLETE ANATOMY COMPARISON: None CLINICAL DATA: Incomplete assessment of outflow tracts There is a single live intrauterine gestation in cephalic presentation.There is cardiac activity with heart rate of 145 bpm. The amniotic fluid volume is subjectively normal. A four-chamber heart is identified. Theleft and right ventricular outflow tracts are identified. A tiny 2 mmechogenic focus is seen within the right ventricle which is usually considered anormal variant. US/US OB incomplete anatomy IMPRESSION: SINGLE LIVE INTRAUTERINE GESTATION. SATISFACTORY VISUALIZATION OF THE OUTFLOW TRACTS. Impression dictated by: Paula Gage M.D. 08/07/2024 9:48 AM Dictation Location: [place] [address] Electronically authenticated by: [id number] Y Date: 9:48 Dictated By: Paula Gage M.D. Signed By:08/07/24949 DD/ 7 TD/TT: Talent Acquisition Administrator: us Generic External Data Provider [facility] Final Result * US OB 14+ weeks anatomy scan (07/05/2024 9:14 AM EDT) Anatomical Region Laterality Modality Body Ultrasound 07/07/2024 6:25 AM EDT Narrative 07/07/2024 6:25 AM EDT EXAM: US OB 14+ WEEKS ANATOMY SCAN [...] recommended. Interpreted by: Electronically signed by ALYSA ASTUDILLO II, MD, PHD at 07-Jul-2024 06:23:52 AM [facility] Procedure Note Alysa Astudillo MD - 07/07/2024 EXAM: US OB 14+ WEEKS ANATOMY SCAN HISTORY: anatomy. COMPARISON: OB ultrasound 06/19/2024. TECHNIQUE: Two-dimensional transabdominal grayscale ultrasound imaging ofthe pelvis was performed. FINDINGS: Gestation: Single Presentation: Breech Cardiac Activity: Present Placental Location: Posterior with no sonographic abnormalitiesidentified. Distance from Placental Tip to Cervix: 4.9 [...] is 20 weeks 1 days (+/- 10 daysgestation). Estimated Weight: 344 grams, +/- 52 grams [...] gestation 20 weeks, 3 days by LMP. Today'sultrasound measurements correlate with a gestational age of 20 weeks 1days. Estimated weight is 344 grams, +/- 52 grams ( 0 lb 12 oz)which correlates to 37 %. KERA is 11/21/2024. 2. Limited visualization of the outflow tracts. A short-term follow-upultrasound is recommended. Interpreted by: Electronically signed by ALYSA ASTUDILLO II, MD, PHD 06:23:52 AM [facility] us Negar Zita DO IMG OB US PROCEDURES Final Resul t * US OB limited 1+ fetuses (06/20/2024 9:58 AM EDT) Anatomical Region Laterality Modality Body Ultrasound 06/20/2024 9:58 AM EDT Narrative 06/20/2024 9:58 AM EDT EXAM: US OB LIMITED 1+ FETUSES HISTORY: [...] placenta previa. Electronically Signed:Electronically signed by ALYSA ASTUDILLO II, MD, PHD at 20-Jun-2024 09:56:32 AM [facility] Procedure Note Alysa Astudillo MD - 06/20/2024 EXAM: US OB LIMITED 1+ FETUSES HISTORY: Complete previa. COMPARISON: OB ultrasound 04/21/2024. TECHNIQUE: Two-dimensional transabdominal grayscale ultrasound imaging ofthe pelvis was performed. FINDINGS: Gestation: Single Presentation: Breech Cardiac Activity: 138 beats per minute Placental Location: Posterior with no sonographic abnormalitiesidentified. Distance from Placental Tip to Cervix: 5.1 cm Cervical canal: Not well visualized Amniotic Fluid: Appears adequate IMPRESSION: 1. Single, live intrauterine gestation 18 weeks, 1 days by LMP. KERA is11/19/2024. 2. Placental tip to cervix is within normal limits. No evidence ofplacenta previa. Electronically Signed:Electronically signed by ALYSA ASTUDILLO II, MD, PHDat 20-Jun-2024 09:56:32 AM [facility] us Negar Zita DO IMG OB US PROCEDURES Final Resul t * RECURRENT VAGINITIS (HTRX) (06/19/2024 1:47 PM EDT) [facility] ATOPOBIUM VAGINAE 0.000 19.961 - 24.689 ppm 06/21/2024 6:29 AM EDT [facility] ATOPOBIUM VAGINAE Not Detected 19.961 - 24.689 ppm 06/21/2024 6:29 AM EDT [facility] BVAB 2,3 (BACTERIAL VAGINOSIS ASSOCIATED BACTERIA 2, 3); MOBILUNCUS SPP 0.000 19.961 - 24.689 ppm 06/21/2024 6:29 AM EDT [facility] BVAB 2,3 (BACTERIAL VAGINOSIS ASSOCIATED BACTERIA 2, 3); MOBILUNCUS SPP Not Detected 19.961 - 24.689 ppm 06/21/2024 6:29 AM EDT [facility] SHANTA ALBICANS, PARAPSILOSIS, TROPICALIS 0.000 19.961 - 30.770 ppm 06/21/2024 6:29 AM EDT [facility] SHANTA ALBICANS, PARAPSILOSIS, TROPICALIS Not Detected 19.961 - 30.770 ppm 06/21/2024 6:29 AM EDT [facility] SHANTA GLABRATA 0.000 23.000 - 32.138 ppm 06/21/2024 6:29 AM EDT [facility] SHANTA GLABRATA Not Detected 23.000 - 32.138 ppm 06/21/2024 6:29 AM EDT [facility] SHANTA KRUSEI 0.000 23.000 - 32.271 ppm 06/21/2024 6:29 AM EDT [facility] SHANTA KRUSEI Not Detected 23.000 - 32.271 ppm 06/21/2024 6:29 AM EDT [facility] CHLAMYDIA TRACHOMATIS 0.000 23.000 - 31.467 ppm 06/21/2024 6:29 AM EDT [facility] CHLAMYDIA TRACHOMATIS Not Detected 23.000 - 31.467 ppm 06/21/2024 6:29 AM EDT [facility] GARDNERELLA VAGINALIS 0.000 19.961 - 24.689 ppm 06/21/2024 6:29 AM EDT [facility] GARDNERELLA VAGINALIS Not Detected 19.961 - 24.689 ppm 06/21/2024 6:29 AM EDT [facility] MEGASPHAERA (TYPES 1, 2) 0.000 19.961 - 24.689 ppm 06/21/2024 6:29 AM EDT [facility] MEGASPHAERA (TYPES 1, 2) Not Detected 19.961 - 24.689 ppm 06/21/2024 6:29 AM EDT [facility] NEISSERIA GONORRHOEAE 0.000 23.000 - 32.117 ppm 06/21/2024 6:29 AM EDT [facility] NEISSERIA GONORRHOEAE Not Detected 23.000 - 32.117 ppm 06/21/2024 6:29 AM EDT [facility] TRICHOMONAS VAGINALIS 0.000 23.000 - 32.119 ppm 06/21/2024 6:29 AM EDT [facility] TRICHOMONAS VAGINALIS Not Detected 23.000 - 32.119 ppm 06/21/2024 6:29 AM EDT [facility] MYCOPLASMA GENITALIUM 0.000 19.961 - 24.689 ppm 06/21/2024 6:29 AM EDT [facility] MYCOPLASMA GENITALIUM Not Detected 19.961 - 24.689 ppm 06/21/2024 6:29 AM EDT [facility] Tissue 06/19/2024 1:47 PM EDT 06/21/2024 1:46 AM EDT us Negar Ahumada DO LAB BLOOD ORDERABLES Final Resul t [facility] [address] [place] [address] * AFP, SERUM, OPEN SPINA BIFIDA (06/19/2024 11:13 AM EDT) RESULTS Report . [facility] TEST RESULTS: *Screen Negative* . [facility] GEST. AGE ON COLLECTION DATE 18.1 . weeks [facility] GESTAT. AGE BASED ON LMP . [facility] Comment: Recalculations are not recommended when gestational dating by LMP and ultrasound are within 10 days. [age]A [age] [facility] RACE . [facility] WEIGHT 221 . lbs [facility] INSULIN DEP DIABETES No . [facility] MULTIPLE GESTATION No . [facility] AFP VALUE 24.8 . ng/mL [facility] AFP MOM 0.72 . [facility] [place] [place] [id number] . [facility] INTERPRETATION Comment . [facility] Comment: Interpretation: Screen Negative This result is screen negative for OSB. The AFP MoM calculated is based on the gestational age provided. MS-AFP can identify up to 80% of open neural tube defects. Closed neural tube defects and some open defects may not be detected by this test. This test does not screen for Down Syndrome or Trisomy 18. If screening for Down Syndrome or Trisomy 18 is desired, contact [facility] to discuss available options. The [employer] recommends amniocentesis be offered to women age 35 and older. COMMENT: Comment . [facility] Comment: Nasreen Mello, Ph.D., [facility] Director References: Available Upon Request. Multiples Of Median Cutoffs For AFP Elevations Bruce 2.5 Black 2.8 IDD 2.0 Twins 4.5 Abbreviation Definitions IDD - Insulin Dep Diabetes OSBR - Open Spina Bifida Risk For further inquiries contact [employer] [facility] at [phone]. This test was developed and its performance characteristics determined by [facility]. It has not been cleared or approved by the Food and Drug Administration. Performed at: [facility] [address] [id number] Medical Technologist Generalist: Jimmy Zavala [facility], Phone: [phone] 06/19/2024 11:1 3 AM EDT 06/19/2024 11:14 AM EDT Narrative [facility] - 06/21/2024 12:07 AM EDT N N LMP [id number] 1 18 N 1 Y 221 N N N N N White/ us Negar Ahumada DO LAB BLOOD ORDERABLES Final Resul t [facility] * IGP,APTIMA HPV,AGE GDLN (06/19/2024 9:02 AM EDT) AGE GDLN ACOG TESTING Note . [facility] Comment: TESTS RESULT FLAG UNITS REF RANGE LAB Clinician Provided Cytology Information Source.............Cervix Other.............. No. of containers..01 ThinPrep Vial Age Algo ACOG An... - 01 FLAG LEGEND: L-Low Normal,H-High Normal,LL-Alert Low,HH-Alert High <-Panic Low,>-Panic High,A-Abnormal,AA-Critical Abnormal Performed at: 01 =G [facility] [address] [place] [address] Helena Salcedo MD, IGP, RFX APTIMA HPV ASCU Note . [facility] Comment: TESTS RESULT FLAG UNITS REF RANGE LAB DIAGNOSIS: 02 NEGATIVE FOR INTRAEPITHELIAL LESION OR MALIGNANCY. Specimen adequacy: 02 Satisfactory for evaluation. No endocervical component is identified. Performed by: 02 Richard Roldan Creative/Art Director ([facility]) . 02 Note: Note 03 The Pap smear is a screening test designed to aid in the detection of premalignant and malignant conditions of the uterine cervix. It is not a diagnostic procedure and should not be used as the sole means of detecting cervical cancer. Both false-positive and false-negative reports do occur. Test Methodology: Note 03 This liquid based ThinPrep(R) pap test was screened with the use of an image guided system. . 02 The HPV DNA reflex criteria were not met with this specimen result therefore, no HPV testing was performed. FLAG LEGEND: L-Low Normal,H-High Normal,LL-Alert Low,HH-Alert High <-Panic Low,>-Panic High,A-Abnormal,AA-Critical Abnormal Performed at: 02 [facility] [address] [place] [address] Vince Jim MD, [address] [address] Helena Salcedo MD, Performed at: =G - [facility] [id number] Medical Technologist Generalist: Helena Salcedo MD, Phone: [phone] Performed at: [facility] [address] [place], [place] [id number] Medical Technologist Generalist: Vince Jim MD, Phone: [phone] 06/19/2024 9:02 AM EDT 06/19/2024 2:56 PM EDT Narrative [facility] - 06/22/2024 2:09 PM EDT SPATULA-ALONE CERVIX us Generic External Data Provider LAB BLOOD ORDERAB LES Final Result [facility] * Pap Smear (06/19/2024 12:00 AM EDT) Swab Cervical swab / Unknown us Negar Zita DO LAB CYTOLOGY ORDERABLES Final Re sult EXTERNAL LAB from Last 3 Months Additional Health Concerns Active Problems Noted Date Diagnosed Date OB Reminders 04/30/2024 Insurance [employer] Care Teams Vehicle Damage Appraiser Relationship Specialty Start Date End Date Lito Guerrero MD [address] [facility] [address] [place] [address] PCP - General Internal Medicine 10/05/22
--- OUTSIDE RECORDS SUMMARY | 2024-08-23 09:44 | XMS_ITS | Encounter Summary ---
Author Organization [facility] Address [address] [place] [address] Care Team Providers Care Drill Operator Pneumatic Name Role Phone Omer Velazquez MD Primary Care Provider [phone] Encounter Details Date Type Department Care Team (Late st Contact Info) Description 06/19/2024 Abstract [facility] [address] [place] [address] Saravanan Ahumada, DO [address] [place], [facility] Social History Tobacco Use Types Packs/Day [...] Routine [facility] [address] [facility] [place] [address] Saravanan Ahumada, DO [address] [facility] [place] [address] 07/24/2025 9:15 AM EDT Office Visit [facility] [address] [place] [address] documented as of this encounter Goals Goal Patient Goal Type Associated Problems Recent Progress Patient-Stated? Author Reminders Care Plan OB Reminders No Open Scheduling, Background documented as of this encounter Visit Diagnoses Not on filedocumented in this encounter Additional Health Concerns Active Problems Noted Date Diagnosed Date OB Reminders 04/30/2024 documented as of this encounter Care Teams Drill Operator Pneumatic Relationship Specialty Start Date End Date Omer Velazquez MD [address] [place] [address] PCP - General Internal Medicine 10/05/22 documented as of this encounter
--- OUTSIDE RECORDS SUMMARY | 2024-08-23 09:44 | XMS_ITS | Encounter Summary ---
Author Organization [facility] Address [address] [place] [address] Care Team Providers Care Bag Loader Machine Operator Name Role Phone Omer Velazquez MD Primary Care Provider [phone] Encounter Details Date Type Department Care Team (Latest Contact Info) Description 08/09/2024 Travel Social History Tobacco Use Types Packs/Day Years [...] Encounters Date Type Department Care Team (Late Contact Info) Description 08/30/2024 11:20 AM EDT Routine [facility] [address] [place] [address] Saravanan Ahumada, DO [address] [place] [address] [place] [address] 07/24/2025 9:15 AM EDT Office Visit [facility] [address] [facility] [address] [place] [address] documented as of this encounter Goals Goal Patient Goal Type Associated Problems Recent Progress Patient-Stated? Author Reminders Care Plan OB Reminders No Open Scheduling, Background documented as of this encounter Visit Diagnoses Not on filedocumented in this encounter Additional Health Concerns Active Problems Noted Date Diagnosed Date OB Reminders 04/30/2024 documented as of this encounter Care Teams Bag Loader Machine Operator Relationship Specialty Start Date End Date Omer Velazquez MD [address] [facility] [address] [place] [address] PCP - General Internal Medicine 10/05/22 documented as of this encounter
--- OUTSIDE RECORDS SUMMARY | 2024-08-23 09:44 | XMS_ITS | Encounter Summary ---
Author Organization [facility] Address [address] [place] [address] Care Team Providers Care School Transportation Supervisor Name Role Phone Robles Goldsmith DO Unavailable [phone] Josefina Harris RN Unavailable [phone] Source Comments In the event this information is protected by the Federal Confidentiality of Alcohol and Drug AbusePatient Records regulations: The Federal rules restrict any use of the information to criminally investigate or prosecute any alcohol or drug abuse patient.[facility] Encounter Details Date Type Department Care Team (Latest Contact Info) Description 02/23/2023 Get Medical Advice Reproductive Endocrinology Infertility [address] [place] [address] Shaina Parr MD [address] [place], [place] [id number] Fax blood work order Social History Tobacco Use Types Packs/Day Years [...] 09/05/2024 1:45 PM EDT Office Visit Otolarynogology [address] [place] [address] Franklin Laboy MD [address] [place] [address] Monoallelic mutation of SDHA gene 09/05/2024 2:00 PM EDT Results Only Main [place] [address] [address] [place] [address] SDHA 09/11/2024 9:00 AM EDT [facility] Endocrinology 9[address] [place] [address] Mirta Valderrama MD [address] [place] [address] Monoallelic mutation of SDHA gene documented as of this encounter Visit Diagnoses Not on filedocumented in this encounter Care Teams School Transportation Supervisor Relationship Specialty Start Date End Date Robles Goldsmith DO [address] [phone] Referring Obstetrics 10/13/22 [place] [address] [place] [address] Specialty Turbine Engine Assembler 04/12/24 documented as of this encounter
--- OUTSIDE RECORDS SUMMARY | 2024-08-23 09:44 | XMS_ITS | Encounter Summary ---
Author Organization [facility] Address [address] [place] [address] Care Team Providers Care Supervisor Paper Products Name Role Phone Robles Goldsmith DO Unavailable [phone] Josefina Harris RN Unavailable [phone] Source Comments In the event this information is protected by the Federal Confidentiality of Alcohol and Drug AbusePatient Records regulations: The Federal rules restrict any use of the information to criminally investigate or prosecute any alcohol or drug abuse patient.[facility] Encounter Details Date Type Department Care Team (Late st Contact Info) Description 11/22/2023 Patient Msg Reproductive Endocrinology Infertility [address] [place], [place] [id number] Provider, Ccf plan for 11/22/23 Social History Tobacco Use Types Packs/Day Years [...] 09/05/2024 1:45 PM EDT Office Visit Otolarynogology [address] [place] [address] Franklin Laboy MD [address] [place] [address] Monoallelic mutation of SDHA gene 09/05/2024 2:00 PM EDT Results Only Main [place] [address] [address] [place] [address] SDHA 09/11/2024 9:00 AM EDT [facility] Endocrinology 9[address] [place] [address] Mirta Valderrama MD [address] [place] [address] Monoallelic mutation of SDHA gene documented as of this encounter Visit Diagnoses Not on filedocumented in this encounter Care Teams Supervisor Paper Products Relationship Specialty Start Date End Date Robles Goldsmith DO [address] [facility] [address] [place] [phone] Referring Obstetrics 10/13/22 [place] [address] [place] [address] Specialty Pomology Teacher 04/12/24 documented as of this encounter
--- OUTSIDE RECORDS SUMMARY | 2024-08-23 09:44 | XMS_ITS | Encounter Summary ---
Author Organization [facility] Address [address] [place] [address] Care Team Providers Care Biology Intern Name Role Phone Omer Velazquez MD Primary Care Provider [phone] Encounter Details Date Type Department Care Team (Late st Contact Info) Description 06/07/2024 Abstract [facility] [address] [place] [address] Saravanan Ahumada, DO [address] [place], [facility]11 Social History Tobacco Use Types Packs/Day Years [...] AM EDT Routine [facility] OB [address] [facility] [place] [address] Saravanan Ahumada, DO [address] [facility] [place] [address] 07/24/2025 9:15 AM EDT Office Visit [facility] IM [address] [place] [address] documented as of this encounter Goals Goal Patient Goal Type Associated Problems Recent Progress Patient-Stated? Author Reminders Care Plan OB Reminders No Open Scheduling, Background documented as of this encounter Visit Diagnoses Not on filedocumented in this encounter Additional Health Concerns Active Problems Noted Date Diagnosed Date OB Reminders 04/30/2024 documented as of this encounter Care Teams Biology Intern Relationship Specialty Start Date End Date Omer Velazquez MD [address] [place] [address] PCP - General Internal Medicine 10/05/22 documented as of this encounter
--- OUTSIDE RECORDS SUMMARY | 2024-08-23 09:44 | XMS_ITS | Encounter Summary ---
Author Organization [facility] Address [address] [place] [address] Care Team Providers Care Animal Groomer Name Role Phone Omer Velazquez MD Primary Care Provider Encounter Details Date Type Department Care Team (Late st Contact Info) Description 06/27/2024 Orders Only [facility] OB [address] [facility] [place] [phone] Symone Hunter [place] [address] [place] [address] Social History Tobacco Use Types Packs/Day Years [...] AM EDT Routine [facility] OB [address] [facility] [place] [address] Saravanan Ahumada, DO [address] [facility] [place] [address] 07/24/2025 9:15 AM EDT Office Visit [facility] IM [address] [place] [address] documented as of this encounter Goals Goal Patient Goal Type Associated Problems Recent Progress Patient-Stated? Author Reminders Care Plan OB Reminders No Open Scheduling, Background documented as of this encounter Procedures Procedure Name Priority Date/Time Associated Diagnosis Comments PAP SMEAR Routine 06/19/2024 12:00 AM EDT documented in this encounter Results * Pap Smear (06/19/2024 12:00 AM EDT) Swab Cervical swab / Unknown us Saravanan Ahumada DO LAB CYTOLOGY ORDERABLES Final Re sult EXTERNAL LAB documented in this encounter Visit Diagnoses Not on filedocumented in this encounter Additional Health Concerns Active Problems Noted Date Diagnosed Date OB Reminders 04/30/2024 documented as of this encounter Care Teams Animal Groomer Relationship Specialty Start Date End Date Omer Velazquez MD [address] [place] [address] PCP - General Internal Medicine 10/05/22 documented as of this encounter
--- OUTSIDE RECORDS SUMMARY | 2024-08-23 09:44 | XMS_ITS | Encounter Summary ---
Author Organization [facility] Address [address] [id number] Care Team Providers Care Clerical Investigator Name Role Phone Robles Goldsmith DO Unavailable [phone] Josefina Harris RN Unavailable [phone] Source Comments In the event this information is protected by the Federal Confidentiality of Alcohol and Drug AbusePatient Records regulations: The Federal rules restrict any use of the information to criminally investigate or prosecute any alcohol or drug abuse patient.[facility] Encounter Details Date Type Department Care Team (Late st Contact Info) Description 06/18/2023 Patient [facility] [address] [place] [address] Fina Davalos, [address] [address] Appointment scheduling Social History Tobacco Use Types Packs/Day Years [...] 09/05/2024 1:45 PM EDT Office Visit Otolarynogology [address] [place] [address] Franklin Laboy MD [address]00 [place] [address] Monoallelic mutation of SDHA gene 09/05/2024 2:00 PM EDT Results Only Main [place] [address] [address] [place] [address] SDHA 09/11/2024 9:00 AM EDT [facility] Endocrinology 9[address] [place] [address] Mirta Valderrama MD [address] [place] [address] Monoallelic mutation of SDHA gene documented as of this encounter Visit Diagnoses Not on filedocumented in this encounter Care Teams Clerical Investigator Relationship Specialty Start Date End Date Robles Goldsmith DO [address] [phone] Referring Obstetrics 10/13/22 Josefina Harris, ARIC [address] [place] [address] Specialty Putty And Caulking Supervisor 04/12/24 documented as of this encounter
--- OUTSIDE RECORDS SUMMARY | 2024-08-23 09:44 | XMS_ITS | Encounter Summary ---
Author Organization [facility] Address [address] [place] [address] Care Team Providers Care Print Line Supervisor Name Role Phone Omer Velazquez MD Primary Care Provider [phone] Encounter Details Date Type Department Care Team (Late st Contact Info) Description 05/23/2024 Abstract [facility] OB [address] [facility] [place] [address] Kayla [place] LPN Social History Tobacco [...] AM EDT Routine [facility] OB [address] [facility] [place] [address] Saravanan Ahumada, [address] [facility] [place] [address] 07/24/2025 9:15 AM EDT Office Visit [facility] IM [address] [place] [address] documented as of this encounter Goals Goal Patient Goal Type Associated Problems Recent Progress Patient-Stated? Author Reminders Care Plan OB Reminders No Open Scheduling, Background documented as of this encounter Visit Diagnoses Not on filedocumented in this encounter Additional Health Concerns Active Problems Noted Date Diagnosed Date OB Reminders 04/30/2024 documented as of this encounter Care Teams Print Line Supervisor Relationship Specialty Start Date End Date Omer Velazquez MD [address] [place] [address] PCP - General Internal Medicine 10/05/22 documented as of this encounter
--- OUTSIDE RECORDS SUMMARY | 2024-08-23 09:44 | XMS_ITS ---
Author Organization [facility] (ClinicalSummary Clone) Address Unknown Care Team Providers Care Assistant Women'S Basketball Coach Name Role Phone Unavailable Primary Care Physician Unavailab le Results * [UNITY] ANEUPLOIDY NIPT Performed by: [employer] Value Range Date Fraction 4.3% 04/29/2024 05 :04 am UTC Sex Chromosome Aneuploidy NOT DETECTED 05:04 am UTC Monosomy X LOW RISK <1 in 10,000 2024 05:04 am UTC Trisomy 13 LOW RISK <1 in 10,000 2024 05:04 am UTC Trisomy 18 LOW RISK <1 in 10,000 2024 05:04 am UTC Trisomy 21 LOW RISK <1 in 10,000 2024 05:04 am UT Sex MALE 04/29/2024 05:0 4 am UTC Gestation GAMA 04/29/19 25 05:04 am UT For detailed report, see PDF See PDF 04/29/2024 05:04 am UTC 04/29/2024 05:0 4 am UT Social History Observation Value Start Date End Date
--- OUTSIDE RECORDS SUMMARY | 2024-08-23 09:44 | XMS_ITS | Encounter Summary ---
Author Organization [facility] Address [address] [place] [address] Care Team Providers Care Securities Consultant Name Role Phone Omer Velazquez MD Primary Care Provider [phone] Encounter Details Date Type Department Care Team (Late st Contact Info) Description 06/19/2024 Abstract [facility] OB [address] [place] [address] Saravanan Ahumada, DO [address] [place], [facility]11 Social History Tobacco Use Types Packs/Day [...] AM EDT Routine [facility] BCP OB [address] [facility] [place] [address] Saravanan Ahumada, DO [address] [facility] [place] [address] 07/24/2025 9:15 AM EDT Office Visit [facility] IM [address] [place] [address] documented as of this encounter Goals Goal Patient Goal Type Associated Problems Recent Progress Patient-Stated? Author Reminders Care Plan OB Reminders No Open Scheduling, Background documented as of this encounter Visit Diagnoses Not on filedocumented in this encounter Additional Health Concerns Active Problems Noted Date Diagnosed Date OB Reminders 04/30/2024 documented as of this encounter Care Teams Securities Consultant Relationship Specialty Start Date End Date Omer Velazquez MD [address] [place] [address] PCP - General Internal Medicine 10/05/22 documented as of this encounter
--- OUTSIDE RECORDS SUMMARY | 2024-08-23 09:44 | XMS_ITS | Encounter Summary ---
Author Organization [facility] Address [address] [place] [address] Care Team Providers Care Channel Account Manager Name Role Phone Robles Goldsmith DO Unavailable [phone] Josefina Harris RN Unavailable [phone] Source Comments In the event this information is protected by the Federal Confidentiality of Alcohol and Drug AbusePatient Records regulations: The Federal rules restrict any use of the information to criminally investigate or prosecute any alcohol or drug abuse patient.[facility] Encounter Details Date Type Department Care Team (Latest Contact Info) Description 01/13/2024 Patient Msg Reproductive Endocrinology Infertility [address] [place] [address] Shaina Parr MD [address] [place] [address] Appointment Request Social History Tobacco Use Types Packs/Day Years Used Date Smoking Tobacco: Never Smokeless Tobacco: Never Alcohol Use Standard Drinks/Week Comments Yes 0 (1 standard drink = 0.6 oz pur e alcohol) rare, socially Area Deprivation Index Answer Date Ibrahima rded National Score (1-100), lower number is lower ri sk 64 12/21/2023 State Score (1-10), lower number is lower risk 4 12/21/2023 Data from: https://www.neighborhoodatlas.[facility]/. Last address used for calculation [address] 12/21/2023 Comments No Sex and Gender Information Value Date Recorded Sex Assigned at Female 01/04/2023 6:38 PM EDT Legal Sex Female 10:39 AM EDT Gender Identity Female 01/04/2023 6:38 PM EDT Sexual Orientation Not on file documented as of this encounter Plan of Treatment Upcoming Encounters Date Type Department Care Team (Latest Contact Info) Description 09/05/2024 1:45 PM EDT Office Visit Otolarynogology [address] [place] [address] Franklin Laboy MD [address] [place] [address] Monoallelic mutation of SDHA gene 09/05/2024 2:00 PM EDT Results Only Main [place] [address] [address] [place] [address] SDHA 09/11/2024 9:00 AM EDT [facility] Endocrinology 9300 [place] [address] Mirta Valderrama MD [address] [place] [address] Monoallelic mutation of SDHA gene documented as of this encounter Visit Diagnoses Not on filedocumented in this encounter Care Teams Channel Account Manager Relationship Specialty Start Date End Date Robles Goldsmith DO [address] [place] [address] Referring Obstetrics 10/13/22 [place] [address] [place] [address] Specialty Operator Helper 04/12/24 documented as of this encounter
--- OUTSIDE RECORDS SUMMARY | 2024-08-23 09:44 | XMS_ITS | Encounter Summary ---
Author Organization [facility] Address [address] [place] [address] Care Team Providers Care Cigarette Stamper Name Role Phone Omer Velazquez MD Primary Care Provider [phone] Encounter Details Date Type Department Care Team (Latest Contact Info) Description 08/23/2024 Travel Social History Tobacco Use Types Packs/Day [...] [facility] OB [address] [place] [address] Saravanan Ahumada, DO [address] [place] [address] [place] [address] 07/24/2025 9:15 AM EDT Office Visit [facility] IM [address] [facility] [address] [place] [address] documented as of this encounter Goals Goal Patient Goal Type Associated Problems Recent Progress Patient-Stated? Author Reminders Care Plan OB Reminders No Open Scheduling, Background documented as of this encounter Visit Diagnoses Not on filedocumented in this encounter Additional Health Concerns Active Problems Noted Date Diagnosed Date OB Reminders 04/30/2024 documented as of this encounter Care Teams Cigarette Stamper Relationship Specialty Start Date End Date Omer Velazquez MD [address] [facility] [address] [place] [address] PCP - General Internal Medicine 10/05/22 documented as of this encounter
--- OUTSIDE RECORDS SUMMARY | 2024-08-23 09:44 | XMS_ITS | Encounter Summary ---
Author Organization [facility] Address [address] [place] [address] Care Team Providers Care Brusher Warp Name Role Phone Robles Goldsmith DO Unavailable [phone] Josefina Harris RN Unavailable [phone] Source Comments In the event this information is protected by the Federal Confidentiality of Alcohol and Drug AbusePatient Records regulations: The Federal rules restrict any use of the information to criminally investigate or prosecute any alcohol or drug abuse patient.[facility] Encounter Details Date Type Department Care Team (Late st Contact Info) Description 01/25/2023 Patient Msg Reproductive Endocrinology Infertility [address] [place] [address] Shaina Edge MD [facility] [place] [phone] MyRiad results Social History Tobacco Use Types Packs/Day Years [...] 09/05/2024 1:45 PM EDT Office Visit Otolarynogology [address] [place] [address] Franklin Laboy MD [address]00 [place] [address] Monoallelic mutation of SDHA gene 09/05/2024 2:00 PM EDT Results Only Main [place] [address] [address] [place] [address] SDHA 09/11/2024 9:00 AM EDT [facility] Endocrinology 9[address] [place] [address] Mirta Valderrama MD [address] [place] [address] Monoallelic mutation of SDHA gene documented as of this encounter Visit Diagnoses Not on filedocumented in this encounter Care Teams Brusher Warp Relationship Specialty Start Date End Date Robles Goldsmith DO [address] [phone] Referring Obstetrics 10/13/22 [place] [address] [place] [address] Specialty Director Of Clinical Education 04/12/24 documented as of this encounter
--- OUTSIDE RECORDS SUMMARY | 2024-08-23 09:44 | XMS_ITS | Encounter Summary ---
Author Organization [facility] Address [address] [place] [address] Care Team Providers Care Wood Router Hand Name Role Phone Robles Goldsmith DO Unavailable [phone] Josefina Harris RN Unavailable [phone] Source Comments In the event this information is protected by the Federal Confidentiality of Alcohol and Drug AbusePatient Records regulations: The Federal rules restrict any use of the information to criminally investigate or prosecute any alcohol or drug abuse patient.[facility] Encounter Details Date Type Department Care Team (Late st Contact Info) Description 02/04/2023 Patient Msg Reproductive Endocrinology Infertility [address] [facility] [place] [address] Haritha Casiano APRN.MELT SUPERVISOR [address] [place] [address] Next steps Social History Tobacco Use Types Packs/Day Years [...] 09/05/2024 1:45 PM EDT Office Visit Otolarynogology [address] [place] [address] Franklin Laboy MD 9500 [place] [address] Monoallelic mutation of SDHA gene 09/05/2024 2:00 PM EDT Results Only Main [place] [address] [address] [place] [address] SDHA 09/11/2024 9:00 AM EDT [facility] Endocrinology 9300 [place] [address] Mirta Valderrama MD [address] [place] [address] Monoallelic mutation of SDHA gene documented as of this encounter Visit Diagnoses Not on filedocumented in this encounter Care Teams Wood Router Hand Relationship Specialty Start Date End Date Robles Goldsmith DO [address] [phone] Referring Obstetrics 10/13/22 Josefina Harris, ARIC [address] [place] [address] Specialty Brake Repairer Hydraulic 04/12/24 documented as of this encounter
--- OUTSIDE RECORDS SUMMARY | 2024-08-23 09:44 | XMS_ITS | Encounter Summary ---
Author Organization [facility] Address [address] [place] [address] Care Team Providers Care Ironworker Helper Shop Name Role Phone Robles Goldsmith DO Unavailable [phone] Josefina Harris RN Unavailable [phone] Source Comments In the event this information is protected by the Federal Confidentiality of Alcohol and Drug AbusePatient Records regulations: The Federal rules restrict any use of the information to criminally investigate or prosecute any alcohol or drug abuse patient.[facility] Encounter Details Date Type Department Care Team (Late st Contact Info) Description 02/11/2024 Patient Msg Family Medicine [address] [place], [place] [id number] Provider, Ccf Appointment Cancellation Social History Tobacco Use Types Packs/Day Years Used Date Smoking Tobacco: Never Smokeless Tobacco: Never Alcohol Use Standard Drinks/Week Comments Yes 0 (1 standard drink = 0.6 oz pur e alcohol) rare, socially Area Deprivation Index Answer Date Ibrahima rded National Score (1-100), lower number is lower ri sk 64 12/21/2023 State Score (1-10), lower number is lower risk 4 12/21/2023 Data from: https://www.neighborhoodatlas.medicine.[place].edu/. Last address used for calculation [address] [place] [address] 12/21/2023 Comments No Sex and Gender Information Value Date Recorded Sex Assigned at Female 01/04/2023 6:38 PM EDT Legal Sex Female 10:39 AM EDT Gender Identity Female 01/04/2023 6:38 PM EDT Sexual Orientation Not on file documented as of this encounter Plan of Treatment Upcoming Encounters Date Type Department Care Team (Latest Contact Info) Description 09/05/2024 1:45 PM EDT Office Visit Otolarynogology [address] [place] [address] Franklin Laboy MD [address] [place] [address] Monoallelic mutation of SDHA gene 09/05/2024 2:00 PM EDT Results Only Main [place] [address] [address] [place] [address] SDHA 09/11/2024 9:00 AM EDT [facility] Endocrinology 9300 [place] [address] Mirta Valderrama MD [address] [place], [place] [address] Monoallelic mutation of SDHA gene documented as of this encounter Visit Diagnoses Not on filedocumented in this encounter Care Teams Ironworker Helper Shop Relationship Specialty Start Date End Date Robles Goldsmith DO [address] [facility] [address] [place] [phone] Referring Obstetrics 10/13/22 Josefina Harris, ARIC [address] [place] [address] Specialty Funds Transfer Clerk 04/12/24 documented as of this encounter
--- OUTSIDE RECORDS SUMMARY | 2024-08-23 09:44 | XMS_ITS | Encounter Summary ---
Author Organization [facility] Address [address] [place] [address] Care Team Providers Care Abrasive Band Winder Name Role Phone Omer Velazquez MD Primary Care Provider [phone] Encounter Details Date Type Department Care Team (Late st Contact Info) Description 05/19/2024 Telephone [facility] [address] [place] [address] Gaye Hollis LPN [address] [place] [id number] Social History Tobacco Use Types Packs/Day Years [...] on file documented as of this encounter Miscellaneous Notes * Telephone Encounter - Gaye Hollis LPN - 05/19/2024 10:30 AM EST Pt called stating that she was still having fevers and today she started to spot and cramp. I asked how much spotting she was having and if the cramps were mild or severe. Pt states that cramps are very mild an documented in this encounter Plan of Treatment Upcoming Encounters Date Type Department Care Team (Late st Contact Info) Description 08/30/2024 11:20 AM EDT Routine [facility] OB [address] [place] [address] Saravanan Ahumada, DO [address] [facility] [place] [address] 07/24/2025 9:15 AM EDT Office Visit [facility] [address] [place] [address] Scheduled Orders Name Type Priority Associated Diagnoses Orde r Schedule hCG, quantitative, Lab Routine Missed menses every 48 hours for 10 Occurrences starting 05/19/2024 until 05/19/2025 documented as of this encounter Goals Goal Patient Goal Type Associated Problems Recent Progress Patient-Stated? Author Reminders Care Plan OB Reminders No Open Scheduling, Background documented as of this encounter Visit Diagnoses Diagnosis Missed menses documented in this encounter Additional Health Concerns Active Problems Noted Date Diagnosed Date OB Reminders 04/30/2024 documented as of this encounter Care Teams Abrasive Band Winder Relationship Specialty Start Date End Date Omer Velazquez MD [address] [place] [address] PCP - General Internal Medicine 10/05/22 documented as of this encounter
--- OUTSIDE RECORDS SUMMARY | 2024-08-23 09:44 | XMS_ITS | Encounter Summary ---
Author Organization [facility] Address [facility] [place] [address] Care Team Providers Care Profile Saw Operator Name Role Phone Robles Goldsmith DO Unavailable [phone] Josefina Harris RN Unavailable [phone] Source Comments In the event this information is protected by the Federal Confidentiality of Alcohol and Drug AbusePatient Records regulations: The Federal rules restrict any use of the information to criminally investigate or prosecute any alcohol or drug abuse patient.[facility] Encounter Details Date Type Department Care Team (Late st Contact Info) Description 03/23/2023 Patient Rig [facility] [address] [place] [address] Provider, Ccf Appointment Reschedule Social History Tobacco Use Types Packs/Day Years [...] 09/05/2024 1:45 PM EDT Office Visit Otolarynogology [address] [place] [address] Franklin Laboy MD [address] [place] [address] Monoallelic mutation of SDHA gene 09/05/2024 2:00 PM EDT Results Only Main [place] [address] [address] [place] [address] SDHA 09/11/2024 9:00 AM EDT [facility] Endocrinology [address] [place] [address] Mirta Valderrama MD [address] [place] [address] Monoallelic mutation of SDHA gene documented as of this encounter Visit Diagnoses Not on filedocumented in this encounter Care Teams Profile Saw Operator Relationship Specialty Start Date End Date Robles Goldsmith DO [address] [phone] Referring Obstetrics 10/13/22 Josefina Harris, ARIC [address] [place] [address] Specialty Franchise Business Consultant 04/12/24 documented as of this encounter
--- OUTSIDE RECORDS SUMMARY | 2024-08-23 09:44 | XMS_ITS | Encounter Summary ---
Author Organization [facility] Address [address] [place] [address] Care Team Providers Care Corn Sheller Name Role Phone Robles Goldsmith DO Unavailable [phone] Josefina Harris RN Unavailable [phone] Source Comments In the event this information is protected by the Federal Confidentiality of Alcohol and Drug AbusePatient Records regulations: The Federal rules restrict any use of the information to criminally investigate or prosecute any alcohol or drug abuse patient.[facility] Encounter Details Date Type Department Care Team (Latest Contact Info) Description 05/25/2023 Patient Msg Reproductive Endocrinology Infertility [address] [place] [address] Shaina Parr MD [address] [place], [place] [phone] Appointment Request Social History Tobacco Use Types [...] 09/05/2024 1:45 PM EDT Office Visit Otolarynogology [address] [place] [address] Franklin Laboy MD [address] [place] [address] Monoallelic mutation of SDHA gene 09/05/2024 2:00 PM EDT Results Only Main [place] [address] [address] [place] [address] SDHA 09/11/2024 9:00 AM EDT [facility] Endocrinology [address] [place] [address] Mirta Valderrama MD [address] [place] [address] Monoallelic mutation of SDHA gene documented as of this encounter Visit Diagnoses Not on filedocumented in this encounter Care Teams Corn Sheller Relationship Specialty Start Date End Date Robles Goldsmith DO [address] [phone] Referring Obstetrics 10/13/22 [place] [address] [place] [address] Specialty Shade Hanger 04/12/24 documented as of this encounter
--- OUTSIDE RECORDS SUMMARY | 2024-08-23 09:44 | XMS_ITS | Encounter Summary ---
Author Organization [facility] Address [address] [place] [address] Care Team Providers Care Ham Sawyer Name Role Phone Omer Velazquez MD Primary Care Provider [phone] Reason for Visit * Reason Onset Date Comments Med Refill 08/14/2024 Encounter Details Date Type Department Care Team (Late st Contact Info) Description 08/14/2024 Telephone [facility] [address] [facility] [address] [place] [address] Omer Velazquez MD [address] [facility] [address] [place] [address] Med Refill Social History Tobacco Use Types Packs/Day Years [...] encounter Miscellaneous Notes * Telephone Encounter - Tiffany Blue LPN - 08/15/2024 9:01 AM EDT RX sent to [facility] * Telephone Encounter - Omer Velazquez MD - 08/15/2024 8:47 AM EDT Send Albuterol HFA, 2 puffs q 6 hours PRN, #1, 5 refills. * Telephone Encounter - Tiffany Blue LPN - 08/15/2024 7:52 AM EDT Patient request a refill on albuterol inhaler. Not found on any med list. Please advise documented in this encounter Plan of Treatment Upcoming Encounters Date Type Department Care Team (Late st Contact Info) Description 08/30/2024 11:20 AM EDT Routine [facility] OB [address] [facility] [place] [address] Saravanan Ahumada, DO [address] [facility] [place] [address] 07/24/2025 9:15 AM EDT Office Visit [facility] [address] [place] [address] documented as of this encounter Goals Goal Patient Goal Type Associated Problems Recent Progress Patient-Stated? Author Reminders Care Plan OB Reminders No Open Scheduling, Background documented as of this encounter Visit Diagnoses Diagnosis Seasonal allergies Allergic rhinitis, cause unspecified documented in this encounter Additional Health Concerns Active Problems Noted Date Diagnosed Date OB Reminders 04/30/2024 documented as of this encounter Care Teams Ham Sawyer Relationship Specialty Start Date End Date Omer Velazquez MD [address] [facility] [address] [place] [phone] PCP - General Internal Medicine 10/05/22 documented as of this encounter
--- OUTSIDE RECORDS SUMMARY | 2024-08-23 09:44 | XMS_ITS | Encounter Summary ---
Author Organization [facility] Address [address] [place] [address] Care Team Providers Care Plate Embosser Name Role Phone Robles Goldsmith DO Unavailable [phone] Josefina Harris RN Unavailable [phone] Source Comments In the event this information is protected by the Federal Confidentiality of Alcohol and Drug AbusePatient Records regulations: The Federal rules restrict any use of the information to criminally investigate or prosecute any alcohol or drug abuse patient.[facility] Encounter Details Date Type Department Care Team (Late st Contact Info) Description 03/24/2024 Patient [facility] -[address] [place] [address] Cee Palafox RPh At your next appointment, choose [facility]. Social History Tobacco Use Types Packs/Day Years Used Date Smoking Tobacco: Never Smokeless Tobacco: Never Alcohol Use Standard Drinks/Week Comments Yes 0 (1 standard drink = 0.6 oz pur e alcohol) rare, socially Area Deprivation Index Answer Date Ibrahima rded National Score (1-100), lower number is lower ri sk 64 12/21/2023 State Score (1-10), lower number is lower risk 4 12/21/2023 Data from: https://www.neighborhoodatlas.medicine.[facility].edu/. Last address used for calculation [address] [place] [address] 12/21/2023 Comments Yes Sex and Gender Information Value Date Recorded Sex Assigned at Female 01/04/2023 6:38 PM EDT Legal Sex Female 10:39 AM EDT Gender Identity Female 01/04/2023 6:38 PM EDT Sexual Orientation Not on file documented as of this encounter Plan of Treatment Upcoming Encounters Date Type Department Care Team (Latest Contact Info) Description 09/05/2024 1:45 PM EDT Office Visit Otolarynogology [address] [place] [address] Franklin Laboy MD [address] [place] [address] Monoallelic mutation of SDHA gene 09/05/2024 2:00 PM EDT Results Only Main [place] [address] [address] [place] [address] SDHA 09/11/2024 9:00 AM EDT [facility] Endocrinology [address] [place] [address] Mirta Valderrama MD [address] [place], [place] [phone] Monoallelic mutation of SDHA gene documented as of this encounter Visit Diagnoses Not on filedocumented in this encounter Care Teams Plate Embosser Relationship Specialty Start Date End Date Robles Goldsmith DO [address] [phone] Referring Obstetrics 10/13/22 [place] [address] [place] [address] Specialty Economic Research Assistant 04/12/24 documented as of this encounter
--- OUTSIDE RECORDS SUMMARY | 2024-08-23 09:44 | XMS_ITS | Encounter Summary ---
Author Organization [facility] Address [address] [place] [address] Care Team Providers Care Business Test Analyst Name Role Phone Robles Goldsmith DO Unavailable [phone] Josefina Harris RN Unavailable [phone] Source Comments In the event this information is protected by the Federal Confidentiality of Alcohol and Drug AbusePatient Records regulations: The Federal rules restrict any use of the information to criminally investigate or prosecute any alcohol or drug abuse patient.[facility] Encounter Details Date Type Department Care Team (Late st Contact Info) Description 2024 Patient Msg Reproductive Endocrinology Infertility [address] [place], [place] [phone] Haritha Casiano APRN.PLANETARIUM SKY SHOW TECHNICIAN [address] [place] [address] Congratulations!!! Social History Tobacco Use Types Packs/Day Years Used Date Smoking Tobacco: Never Smokeless Tobacco: Never Alcohol Use Standard Drinks/Week Comments Yes 0 (1 standard drink = 0.6 oz pur e alcohol) rare, socially Area Deprivation Index Answer Date Ibrahima rded National Score (1-100), lower number is lower ri sk 64 12/21/2023 State Score (1-10), lower number is lower risk 4 12/21/2023 Data from: https://www.neighborhoodatlas.[facility]/. Last address used for calculation [address] 12/21/2023 Comments Yes Sex and Gender Information Value Date Recorded Sex Assigned at Female 01/04/2023 6:38 PM EDT Legal Sex Female 10:39 AM EDT Gender Identity Female 01/04/2023 6:38 PM EDT Sexual Orientation Not on file documented as of this encounter Plan of Treatment Upcoming Encounters Date Type Department Care Team (Latest Contact Info) Description 09/05/2024 1:45 PM EDT Office Visit Otolarynogology [address] [place] [address] Franklin Laboy MD [address] [place], [place] [phone] Monoallelic mutation of SDHA gene 09/05/2024 2:00 PM EDT Results Only Main [place] [address] [address] [place] [address] SDHA 09/11/2024 9:00 AM EDT [facility] Endocrinology [address] [place] [address] Mirta Valderrama MD [address] [place] [address] Monoallelic mutation of SDHA gene documented as of this encounter Visit Diagnoses Not on filedocumented in this encounter Care Teams Business Test Analyst Relationship Specialty Start Date End Date Robles Goldsmith DO [address] [place] [address] Referring Obstetrics 10/13/22 [place] [address] [place], [place] [phone] Specialty Batch Blender 04/12/24 documented as of this encounter
--- OUTSIDE RECORDS SUMMARY | 2024-08-23 09:44 | XMS_ITS | Encounter Summary ---
Author Organization [facility] Address [facility] [place] [address] Care Team Providers Care Ethologist Name Role Phone Robles Goldsmith DO Unavailable [phone] Josefina Harris RN Unavailable [phone] Source Comments In the event this information is protected by the Federal Confidentiality of Alcohol and Drug AbusePatient Records regulations: The Federal rules restrict any use of the information to criminally investigate or prosecute any alcohol or drug abuse patient.[facility] Encounter Details Date Type Department Care Team (Late st Contact Info) Description 01/05/2023 Patient Msg Reproductive Endocrinology Infertility [address] [place], [place] [phone] Provider, Alli Received Voicemail Social History Tobacco Use Types Packs/Day Years [...] 09/05/2024 1:45 PM EDT Office Visit Otolarynogology [address] [place] [address] Franklin Laboy MD [address] [place] [address] Monoallelic mutation of SDHA gene 09/05/2024 2:00 PM EDT Results Only Main [place] [address] [address] [place] [address] SDHA 09/11/2024 9:00 AM EDT [facility] Endocrinology [address] [place] [address] Mirta Valderrama MD [address] [place] [address] Monoallelic mutation of SDHA gene documented as of this encounter Visit Diagnoses Not on filedocumented in this encounter Care Teams Ethologist Relationship Specialty Start Date End Date Robles Goldsmith DO [address] [facility] [address] [place] [address] Referring Obstetrics 10/13/22 Josefina Harris, ARIC [address] [place] [address] Specialty Dish Network Installer 04/12/24 documented as of this encounter
--- OUTSIDE RECORDS SUMMARY | 2024-08-23 09:44 | XMS_ITS | Encounter Summary ---
Author Organization [facility] Address [address] [place] [address] Care Team Providers Care Window And Siding Craftsman Name Role Phone Robles Goldsmith DO Unavailable [phone] Josefina Harris RN Unavailable [phone] Source Comments In the event this information is protected by the Federal Confidentiality of Alcohol and Drug AbusePatient Records regulations: The Federal rules restrict any use of the information to criminally investigate or prosecute any alcohol or drug abuse patient.[facility] Encounter Details Date Type Department Care Team (Latest Contact Info) Description 11/19/2023 Patient Msg Reproductive Endocrinology Infertility [address] [place] [address] Shaina Parr MD [address] [place], [place] [phone] Appointment Request Social History Tobacco Use Types [...] 09/05/2024 1:45 PM EDT Office Visit Otolarynogology [address] [place] [address] Franklin Laboy MD [address] [place] [address] Monoallelic mutation of SDHA gene 09/05/2024 2:00 PM EDT Results Only Main [place] [address] [address] [place] [address] SDHA 09/11/2024 9:00 AM EDT [facility] Endocrinology [address] [place] [address] Mirta Valderrama MD [address] [place] [address] Monoallelic mutation of SDHA gene documented as of this encounter Visit Diagnoses Not on filedocumented in this encounter Care Teams Window And Siding Craftsman Relationship Specialty Start Date End Date Robles Goldsmith DO [address] [phone] Referring Obstetrics 10/13/22 [place] [address] [place] [address] Specialty Shear Tender 04/12/24 documented as of this encounter
--- OUTSIDE RECORDS SUMMARY | 2024-08-23 09:44 | XMS_ITS | Encounter Summary ---
Author Organization [facility] Address [address] [place] [address] Care Team Providers Care Overhead Door Technician Name Role Phone Robles Goldsmith DO Unavailable [phone] Josefina Harris RN Unavailable [phone] Source Comments In the event this information is protected by the Federal Confidentiality of Alcohol and Drug AbusePatient Records regulations: The Federal rules restrict any use of the information to criminally investigate or prosecute any alcohol or drug abuse patient.[facility] Encounter Details Date Type Department Care Team (Latest Contact Info) Description 07/15/2023 Patient Msg Reproductive Endocrinology Infertility [address] [place], [place] [phone] Provider, Ccf confidential appointment on 08/[address] Edge requires reschedule Social History Tobacco Use Types Packs/Day Years [...] 09/05/2024 1:45 PM EDT Office Visit Otolarynogology [address] [place] [address] Franklin Laboy MD [address]00 [place] [address] Monoallelic mutation of SDHA gene 09/05/2024 2:00 PM EDT Results Only Main [place] [address] [address] [place] [address] SDHA 09/11/2024 9:00 AM EDT [facility] Endocrinology [address] [place] [address] Mirta Valderrama MD [address] [place], [place] [phone] Monoallelic mutation of SDHA gene documented as of this encounter Visit Diagnoses Not on filedocumented in this encounter Care Teams Overhead Door Technician Relationship Specialty Start Date End Date Robles Goldsmith DO [address] [place] [address] Referring Obstetrics 10/13/22 Josefina Harris, ARIC [address] [place] [address] Specialty Patient Assessment Coordinator 04/12/24 documented as of this encounter
--- OUTSIDE RECORDS SUMMARY | 2024-08-23 09:45 | XMS_ITS | Encounter Summary ---
Author Organization [facility] Address [address] [place] [address] Care Team Providers Care Branch Operation Evaluation Manager Name Role Phone Omer Velazquez MD Primary Care Provider Encounter Details Date Type Department Care Team (Late st Contact Info) Description 05/01/2024 Abstract [facility] OB [address] [place] [address] Saravanan Ahumada, DO [address] [place] [address] [place], [facility] Social History Tobacco Use Types [...] AM EDT Routine [facility] OB [address] [facility] [address] Saravanan Ahumada, DO [address] [facility] [place] [address] 07/24/2025 9:15 AM EDT Office Visit [facility] [address] [place] [address] documented as of this encounter Goals Goal Patient Goal Type Associated Problems Recent Progress Patient-Stated? Author Reminders Care Plan OB Reminders No Open Scheduling, Background documented as of this encounter Visit Diagnoses Not on filedocumented in this encounter Additional Health Concerns Active Problems Noted Date Diagnosed Date OB Reminders 04/30/2024 documented as of this encounter Care Teams Branch Operation Evaluation Manager Relationship Specialty Start Date End Date Omer Velazquez MD [address] [place] [address] PCP - General Internal Medicine 10/05/22 documented as of this encounter
--- OUTSIDE RECORDS SUMMARY | 2024-08-23 09:45 | XMS_ITS | Encounter Summary ---
Author Organization [facility] Address [address] [place] [address] Care Team Providers Care Mechanics Handyman Name Role Phone Omer Velazquez MD Primary Care Provider Encounter Details Date Type Department Care Team (Late Contact Info) Description 01/13/2023 Orders Only [facility] [address] [facility] [address] [address] [place] [address] Shelby Hernandez PA [address] [place] [address] Social History Tobacco Use Types Packs/Day Years Used Date Smoking Tobacco: Never Smokeless Tobacco: Never Alcohol Use Standard Drinks/Week Comments Yes 0 (1 standard drink = 0.6 oz pure alcohol) 1-2 drinks less than monthly in the past year, Caffeine intake: 2-3 cups per day coffee Comments No Sex and Gender Information Value [...] OB [address] [facility] [phone] Saravanan Ahumada, DO [address] [place], [place] [address] 07/24/2025 9:15 AM EDT Office Visit [facility] [address] [place] [address] documented as of this encounter Visit Diagnoses Not on filedocumented in this encounter Care Teams Mechanics Handyman Relationship Specialty Start Date End Date Omer Velazquez MD [address] [place] [address] PCP - General Internal Medicine 10/05/22 documented as of this encounter
--- OUTSIDE RECORDS SUMMARY | 2024-08-23 09:45 | XMS_ITS | Encounter Summary ---
Author Organization [facility] Address [address] [place] [address] Care Team Providers Care Manager Primary Name Role Phone Robles Goldsmith DO Unavailable [phone] Josefina Harris RN Unavailable [phone] Source Comments In the event this information is protected by the Federal Confidentiality of Alcohol and Drug AbusePatient Records regulations: The Federal rules restrict any use of the information to criminally investigate or prosecute any alcohol or drug abuse patient.[facility] Encounter Details Date Type Department Care Team (Late st Contact Info) Description 01/13/2023 Patient Msg Reproductive Endocrinology Infertility [address] [place], [place] [phone] Provider, Ccf Bloodwork results Social History Tobacco Use Types Packs/Day [...] 09/05/2024 1:45 PM EDT Office Visit Otolarynogology [address] [place] [address] Franklin Laboy MD [address]00 [place] [address] Monoallelic mutation of SDHA gene 09/05/2024 2:00 PM EDT Results Only Main [place] [address] [address] [place] [address] SDHA 09/11/2024 9:00 AM EDT [facility] Endocrinology 9[address] [place] [address] Mirta Valderrama MD [address] [place] [address] Monoallelic mutation of SDHA gene documented as of this encounter Visit Diagnoses Not on filedocumented in this encounter Care Teams Manager Primary Relationship Specialty Start Date End Date Robles Goldsmith DO [address] [facility] [address] [place] [address] Referring Obstetrics 10/13/22 Josefina Harris, ARIC [address] [place] [address] Specialty Veneer Splicer 04/12/24 documented as of this encounter
--- OUTSIDE RECORDS SUMMARY | 2024-08-23 09:45 | XMS_ITS | Encounter Summary ---
Author Organization [facility] Address [address] [place] [address] Care Team Providers Care Equipment Driver Name Role Phone Robles Goldsmith Benitez DO Unavailable [phone] Josefina Harris RN Unavailable [phone] Source Comments In the event this information is protected by the Federal Confidentiality of Alcohol and Drug AbusePatient Records regulations: The Federal rules restrict any use of the information to criminally investigate or prosecute any alcohol or drug abuse patient.[facility] Encounter Details Date Type Department Care Team (Late st Contact Info) Description 09/02/2023 Get Medical Advice Endocrinology [address] [place] [address] Mirta Valderrama MD [address] [place] [address] Follow up questions Social History Tobacco Use Types Packs/Day Years [...] encounter Miscellaneous Notes * Telephone Encounter - Mirta Valderrama MD - 09/17/2023 4:37 PM EDT Can you help her schedule with Dr. James or the PCOS weight loss clinic? Thanks, Mirta Valderrama MD, MPH * Telephone Encounter - Colin Cortez MA - 09/03/2023 8:38 AM EDT Patient would like to know if a consult was placed for PCOS clinic. She would also like to know about her blood work. Please review. Latest Ref Rng 08/17/2023 THYROID PEROXIDASE ANTIBODY <5.6 IU/mL 3.3 TSH 0.270 - 4.200 mIU/L 2.690 Free T4 0.9 - 1.7 ng/dL 1.1 Thank you, Ayleen Cortez MA documented in this encounter Plan of Treatment Upcoming Encounters Date Type Department Care Team (Latest Contact Info) Description 09/05/2024 1:45 PM EDT Office Visit Otolarynogology [address] [place], [place] [id number] Franklin Laboy MD [address] [place], [place] [address] Monoallelic mutation of SDHA gene 09/05/2024 2:00 PM EDT Results Only Main [place] [address] [place] [address] SDHA 09/11/2024 9:00 AM EDT [facility] Endocrinology [address] [place] [address] Mirta Valderrama MD [address] [place] [address] Monoallelic mutation of SDHA gene documented as of this encounter Visit Diagnoses Diagnosis PCOS (polycystic ovarian syndrome)- Primary Polycystic ovaries documented in this encounter Care Teams Equipment Driver Relationship Specialty Start Date End Date Robles Goldsmith DO [address] [facility] [address] [place] [address] Referring Obstetrics 10/13/22 [place] [address] [place] [address] Specialty Physician Non Invasive Cardiologist 04/12/24 documented as of this encounter
--- OUTSIDE RECORDS SUMMARY | 2024-08-23 09:45 | XMS_ITS | Encounter Summary ---
Author Organization [facility] Address [address] [place] [address] Care Team Providers Care Geologist Name Role Phone Robles Goldsmith DO Unavailable [phone] Josefina Harris RN Unavailable [phone] Source Comments In the event this information is protected by the Federal Confidentiality of Alcohol and Drug AbusePatient Records regulations: The Federal rules restrict any use of the information to criminally investigate or prosecute any alcohol or drug abuse patient.[facility] Encounter Details Date Type Department Care Team (Late st Contact Info) Description 09/10/2023 Patient Msg Reproductive Endocrinology Infertility [address] [place] [address] Haritha Casiano APRN.ACETONE RECOVERY WORKER [address] [place] [address] IUI facts Social History Tobacco Use Types Packs/Day Years [...] 09/05/2024 1:45 PM EDT Office Visit Otolarynogology [address] [place] [address] Franklin Laboy MD [address] [place] [address] Monoallelic mutation of SDHA gene 09/05/2024 2:00 PM EDT Results Only Main [place] [address] [address] [place] [address] SDHA 09/11/2024 9:00 AM EDT [facility] Endocrinology [address] [place] [address] Mirta Valderrama MD [address] [place] [address] Monoallelic mutation of SDHA gene documented as of this encounter Visit Diagnoses Not on filedocumented in this encounter Care Teams Geologist Relationship Specialty Start Date End Date Robles Goldsmith DO [address] [facility] [address] [place] [address] Referring Obstetrics 10/13/22 Josefina Harris, ARIC [address] [place] [address] Specialty Records Officer 04/12/24 documented as of this encounter
--- OUTSIDE RECORDS SUMMARY | 2024-08-23 09:45 | XMS_ITS | Encounter Summary ---
Author Organization [facility] Address [address] [place] [address] Care Team Providers Care Greenhouse Or Nursery Transplanter Name Role Phone Omer Velazquez MD Primary Care Provider Encounter Details Date Type Department Care Team (Late st Contact Info) Description 01/11/2023 Abstract [facility] IM [address] [facility] [address] [place] [address] Omer Velazquez MD [address] [facility] [address] [place] [address] Social History Tobacco Use Types Packs/Day Years [...] OB [address] [place] [phone] Saravanan Ahumada, DO [address] [facility] [address] [place] [address] 07/24/2025 9:15 AM EDT Office Visit [facility] IM [address] [place] [address] [place] [address] documented as of this encounter Visit Diagnoses Not on filedocumented in this encounter Care Teams Greenhouse Or Nursery Transplanter Relationship Specialty Start Date End Date Omer Velazquez MD [address] [place] [address] [place] [address] PCP - General Internal Medicine 10/05/22 documented as of this encounter
--- OUTSIDE RECORDS SUMMARY | 2024-08-23 09:45 | XMS_ITS | Encounter Summary ---
Author Organization [facility] Address [address] [place] [address] Care Team Providers Care Pulper Tender Name Role Phone Omer Velazquez MD Primary Care Provider [phone] Encounter Details Date Type Department Care Team (Late st Contact Info) Description 01/06/2023 Abstract [facility] OB [address] [facility] [address] [place] [address] Robles Goldsmith, DO [address] [facility] [address] [place] [address] Social History Tobacco Use Types Packs/Day Years [...] AM EDT Routine [facility] B[facility] OB [address] [place] [phone] Saravanan Ahumada, DO [address] [place], [place] [address] 07/24/2025 9:15 AM EDT Office Visit [facility] IM [address] [place] [address] [place] [address] documented as of this encounter Visit Diagnoses Not on filedocumented in this encounter Care Teams Pulper Tender Relationship Specialty Start Date End Date Omer Velazquez MD [address] [place] [place] [address] PCP - General Internal Medicine 10/05/22 documented as of this encounter
--- OUTSIDE RECORDS SUMMARY | 2024-08-23 09:45 | XMS_ITS | Encounter Summary ---
Author Organization [facility] Address [address] [place] [address] Care Team Providers Care Medical Support Specialist Name Role Phone Omer Velazquez MD Primary Care Provider [phone] Encounter Details Date Type Department Care Team (Late st Contact Info) Description 10/05/2022 Abstract [facility] OB [address] [facility] [address] [place] [address] Robles Goldsmith, DO [address] [facility] [address] [place] [address] Social History Tobacco Use Types Packs/Day Years [...] AM EDT Routine [facility] BCP OB [address] [place] [address] Saravanan Ahumada, DO [address] [place] [address] 07/24/2025 9:15 AM EDT Office Visit [facility] IM [address] [place] [address] documented as of this encounter Visit Diagnoses Not on filedocumented in this encounter Care Teams Medical Support Specialist Relationship Specialty Start Date End Date Omer Velazquez MD [address] [place] [address] PCP - General Internal Medicine 10/05/22 documented as of this encounter
--- OUTSIDE RECORDS SUMMARY | 2024-08-23 09:45 | XMS_ITS | Encounter Summary ---
Author Organization [facility] Address [address] [place] [address] Care Team Providers Care Talent Acquisition Partner Name Role Phone Robles Goldsmith DO Unavailable [phone] Josefina Harris RN Unavailable [phone] Source Comments In the event this information is protected by the Federal Confidentiality of Alcohol and Drug AbusePatient Records regulations: The Federal rules restrict any use of the information to criminally investigate or prosecute any alcohol or drug abuse patient.[facility] Encounter Details Date Type Department Care Team (Late st Contact Info) Description 01/20/2023 Get Medical Advice Reproductive Endocrinology Infertility [address] [place] [address] Shaina Edge MD [facility] [place] [id number] ATTN: Domenica Social History Tobacco Use Types Packs/Day Years [...] 09/05/2024 1:45 PM EDT Office Visit Otolarynogology [address] [place] [address] Franklin Laboy MD [address] [place] [address] Monoallelic mutation of SDHA gene 09/05/2024 2:00 PM EDT Results Only Main [place] [address] [address] [place] [address] SDHA 09/11/2024 9:00 AM EDT [facility] Endocrinology [address] [place] [address] Mirta Valderrama MD [address] [place] [address] Monoallelic mutation of SDHA gene documented as of this encounter Visit Diagnoses Not on filedocumented in this encounter Care Teams Talent Acquisition Partner Relationship Specialty Start Date End Date Robles Goldsmith DO [address] [phone] Referring Obstetrics 10/13/22 Josefina Harris, ARIC [address] [place] [address] Specialty Guest Room Attendant 04/12/24 documented as of this encounter
--- OUTSIDE RECORDS SUMMARY | 2024-08-23 09:45 | XMS_ITS | Encounter Summary ---
Author Organization [facility] Address [address] [place] [address] Care Team Providers Care Second Cook And Baker Name Role Phone Omer Velazquez MD Primary Care Provider [phone] Encounter Details Date Type Department Care Team (Late st Contact Info) Description 05/01/2024 Abstract [facility] BCP OB [address] [place] [address] Saravanan Ahumada, DO [address] [place], [id number] Social History Tobacco Use Types Packs/Day Years [...] [address] [facility] [place] [address] Saravanan Ahumada, DO [address] [facility] [place] [address] 07/24/2025 9:15 AM EDT Office Visit [facility] [address] [place] [address] [place] [address] documented as of this encounter Goals Goal Patient Goal Type Associated Problems Recent Progress Patient-Stated? Author Reminders Care Plan OB Reminders No Open Scheduling, Background documented as of this encounter Visit Diagnoses Not on filedocumented in this encounter Additional Health Concerns Active Problems Noted Date Diagnosed Date OB Reminders 04/30/2024 documented as of this encounter Care Teams Second Cook And Baker Relationship Specialty Start Date End Date Omer Velazquez MD [address] [place] [address] [place] [address] PCP - General Internal Medicine 10/05/22 documented as of this encounter
--- OUTSIDE RECORDS SUMMARY | 2024-08-23 09:45 | XMS_ITS | Encounter Summary ---
Author Organization [facility] Address [address] [place] [address] Care Team Providers Care Mica Inspector Name Role Phone Omer Velazquez MD Primary Care Provider [phone] Encounter Details Date Type Department Care Team (Late st Contact Info) Description 07/20/2023 Orders Only [facility] [address] [place] [address] [place] [phone] A, Unknown Practice [address] [place], [place] [address] Social History Tobacco Use Types Packs/Day Years Used Date Smoking Tobacco: Never Smokeless Tobacco: Never Alcohol Use Standard Drinks/Week Comments Not Currently 0 (1 standard drink = 0.6 oz pure alcohol) Caffeine intake: 1 cup per day coffee PHQ-2 Answer Date Recorded Patient Health Questionnaire-2 Score 0 07/13/2023 Comments No Sex and Gender Information Value [...] EDT Routine [facility] BCP OB [address] [place] [address] Saravanan Ahumada, DO [address] [place], [place] [address] 07/24/2025 9:15 AM EDT Office Visit [facility] [address] [place] [address] [place] [address] documented as of this encounter Procedures Procedure Name Priority Date/Time Associated Diagnosis Comments SCANNED LABS Routine 07/20/2023 2:45 PM EDT documented in this encounter Results * SCANNED LABS (07/20/2023 2:45 PM EDT) us Unknown Practice A LAB CHG PERFORMABLES Final Re sult documented in this encounter Visit Diagnoses Not on filedocumented in this encounter Care Teams Mica Inspector Relationship Specialty Start Date End Date Omer Velazquez MD [address] [place] [address] PCP - General Internal Medicine 10/05/22 documented as of this encounter
--- OUTSIDE RECORDS SUMMARY | 2024-08-23 09:45 | XMS_ITS | Encounter Summary ---
Author Organization [facility] Address [address] [place] [address] Care Team Providers Care Glove Wrapper Name Role Phone Omer Velazquez MD Primary Care Provider [phone] Encounter Details Date Type Department Care Team (Late st Contact Info) Description 05/01/2024 Abstract [facility] OB [address] [place] [address] Saravanan Ahumada, DO [address] [place], [facility]11 Social History Tobacco Use Types Packs/Day [...] AM EDT Routine [facility] BCP OB [address] [facility] [place] [address] Saravanan Ahumada, DO [address] [facility] [place] [address] 07/24/2025 9:15 AM EDT Office Visit [facility] [address] [place] [place] [address] documented as of this encounter Goals Goal Patient Goal Type Associated Problems Recent Progress Patient-Stated? Author Reminders Care Plan OB Reminders No Open Scheduling, Background documented as of this encounter Visit Diagnoses Not on filedocumented in this encounter Additional Health Concerns Active Problems Noted Date Diagnosed Date OB Reminders 04/30/2024 documented as of this encounter Care Teams Glove Wrapper Relationship Specialty Start Date End Date Omer Velazquez MD [address] [place] [address] PCP - General Internal Medicine 10/05/22 documented as of this encounter
--- OUTSIDE RECORDS SUMMARY | 2024-08-23 09:45 | XMS_ITS | Encounter Summary ---
Author Organization [facility] Address [facility] [place] [address] Care Team Providers Care Video Production Coordinator Name Role Phone Robles Goldsmith DO Unavailable [phone] Josefina Harris RN Unavailable [phone] Source Comments In the event this information is protected by the Federal Confidentiality of Alcohol and Drug AbusePatient Records regulations: The Federal rules restrict any use of the information to criminally investigate or prosecute any alcohol or drug abuse patient.[facility] Encounter Details Date Type Department Care Team (Late st Contact Info) Description 10/22/2023 Patient Msg Reproductive Endocrinology Infertility [address] [place], [place] [id number] Provider, Alli 10/26/23 Social History Tobacco Use Types Packs/Day Years [...] 09/05/2024 1:45 PM EDT Office Visit Otolarynogology [address] [place] [address] Franklin Laboy MD [address] [place] [address] Monoallelic mutation of SDHA gene 09/05/2024 2:00 PM EDT Results Only Main [place] [address] [address] [place] [address] SDHA 09/11/2024 9:00 AM EDT [facility] Endocrinology [address] [place] [address] Mirta Valderrama MD [address] [place] [address] Monoallelic mutation of SDHA gene documented as of this encounter Visit Diagnoses Not on filedocumented in this encounter Care Teams Video Production Coordinator Relationship Specialty Start Date End Date Robles Goldsmith DO [address] [phone] Referring Obstetrics 10/13/22 [place] [address] [place] [address] Specialty Roof Promenade Tile Setter 04/12/24 documented as of this encounter
--- OUTSIDE RECORDS SUMMARY | 2024-08-23 09:45 | XMS_ITS | Clinical Summary ---
Author Organization [facility] Address [address] [place] [address] Phone Care Team Providers Care Revenue Liaison Name Role Phone Omer Velazquez MD Primary Care Provider Allergies No known active allergies Medications letrozole (Femara) 2.5 mg tablet Take 1 tablet (2.5 mg total) by mouth every other day. 3 Active metFORMIN (Glucophage) 500 mg tablet Take 2 tablets (1,000 mg) by mouth once daily. Active chorionic gonadotropin (Pregnyl) 10,000 unit injection 10,000 Units. 4 Active fluticasone (Flonase) 50 mcg/actuation nasal sprayIndications: Chronic allergic rhinitis Administer 2 sprays into each nostril once daily. 48 mL 3 4 Active Active Problems No known active problems Social History Tobacco Use Types Packs/Day Years Used Date Smoking Tobacco: Never Smokeless Tobacco: Never Tobacco Cessation:Counseling Given: Not Answered Comments Unknown Sex and Gender Information Value Date Recorded Sex Assigned at Not on file Legal Sex Female 1:32 PM EST Gender Identity Not on file Sexual Orientation Not on file Last Filed Vital Signs Vital Sign Reading Time Taken Comments Blood Pressure 128/90 03/08/2024 10:25 AM EST Pulse - - Temperature 36.3 C (97.4 F) 03/08/2024 10:25 AM EST Respiratory Rate - - Oxygen Saturation - - Inhaled Oxygen Concentration - - Weight 103 kg (226 lb) 03/08/2024 10:25 AM EST Height 160 cm (5' 3 ) 03/08/2024 10:25 AM EST Body Mass Index 40.03 03/08/2024 10:25 AM EST Plan of Treatment Health Maintenance Due Date Last Done Comments HIV Screening 1995 Lipid Panel 1995 Yearly Adult Physical 1995 Hepatitis C Screening 2013 Hepatitis A Vaccines (1 of 2 - Risk 2-dose series) 2014 Cervical Cancer Screening 2016 HPV/Cotest 2016 Pap Smear 2016 Varicella Vaccines (2 of 2 - 2-dose childhood series) 06/01/2023 08/04/1996 COVID-19 Vaccine ( - season) 2023 Influenza Vaccine (Season Ended) 2024 01/30/2015, 02/13/2009 DTaP/Tdap/Td Vaccines (7 - Td or Tdap) 06/26/2032 06/26/2022, 08/10/2000, 08/04/1996, Additional history exists Zoster Vaccines (1 of 2) 2045 08/04/1996 Hepatitis B Vaccines Completed 03/17/1996, 1995, 1995 HIB Vaccines Completed 08/04/1996, 02/27, 1995, Additional history exists IPV Vaccines Completed 08/10/2000, 02/27, 1995, Additional history exists Meningococcal Vaccine Aged Out 08/12/2006 No lisa lee eligible based on patient's age to complete this topic HPV Vaccines Completed 08/12/2015, 03/29, 12/05/2014 MMR Vaccines Completed 05/04/2023, 07/27, 04/21/1996 Pneumococcal Vaccine: Pediatrics and At-Risk Adult Patients Aged Out No longer eligible based on patient's age to complete this topic Rotavirus Vaccines Aged Out No longer eligible based on patient's age to complete this topic Insurance [address] [place] [address] [place] [address] [facility] Care Teams Revenue Liaison Relationship Specialty Start Date End Date Omer Velazquez MD [address] [place] [address] PCP - General Internal Medicine 02/14/24
--- OUTSIDE RECORDS SUMMARY | 2024-08-23 09:45 | XMS_ITS | Encounter Summary ---
Author Organization [facility] Address [address] [place] [address] Care Team Providers Care Commissary Representative Name Role Phone Robles Goldsmith DO Unavailable [phone] Josefina Harris RN Unavailable [phone] Source Comments In the event this information is protected by the Federal Confidentiality of Alcohol and Drug AbusePatient Records regulations: The Federal rules restrict any use of the information to criminally investigate or prosecute any alcohol or drug abuse patient.[facility] Encounter Details Date Type Department Care Team (Late st Contact Info) Description 02/17/2024 Patient Msg Reproductive Endocrinology Infertility [address] [place] [address] Shaina Edge MD [address] [place] [phone] PCOS supplements Social History Tobacco Use Types Packs/Day Years Used Date Smoking Tobacco: Never Smokeless Tobacco: Never Alcohol Use Standard Drinks/Week Comments Yes 0 (1 standard drink = 0.6 oz pur e alcohol) rare, socially Area Deprivation Index Answer Date Ibrahima rded National Score (1-100), lower number is lower ri sk 64 12/21/2023 State Score (1-10), lower number is lower risk 4 12/21/2023 Data from: https://www.neighborhoodatlas.medicine.[facility]/. Last address used for calculation [address] 12/21/2023 Comments No Sex and Gender Information Value Date Recorded Sex Assigned at Female 01/04/2023 6:38 PM EDT Legal Sex Female 10:39 AM EDT Gender Identity Female 01/04/2023 6:38 PM EDT Sexual Orientation Not on file documented as of this encounter Plan of Treatment Upcoming Encounters Date Type Department Care Team (Latest Contact Info) Description 09/05/2024 1:45 PM EDT Office Visit Otolarynogology [address] [place] [address] Franklin Laboy MD [address] [place] [address] Monoallelic mutation of SDHA gene 09/05/2024 2:00 PM EDT Results Only Main [place] [address] [address] [place] [address] SDHA 09/11/2024 9:00 AM EDT [facility] Endocrinology [address] [place] [address] Mirta Valderrama MD [address] [place] [address] Monoallelic mutation of SDHA gene documented as of this encounter Visit Diagnoses Not on filedocumented in this encounter Care Teams Commissary Representative Relationship Specialty Start Date End Date Robles Goldsmith DO [address] [place] [address] Referring Obstetrics 10/13/22 [place] [address] [place] [address] Specialty Senior Business Manager 04/12/24 documented as of this encounter
--- OUTSIDE RECORDS SUMMARY | 2024-08-23 09:45 | XMS_ITS | Encounter Summary ---
Author Organization [facility] Address [address] [place] [address] Care Team Providers Care Barrel Tester And Drainer Name Role Phone Robles Goldsmith DO Unavailable [phone] Josefina Harris RN Unavailable [phone] Source Comments In the event this information is protected by the Federal Confidentiality of Alcohol and Drug AbusePatient Records regulations: The Federal rules restrict any use of the information to criminally investigate or prosecute any alcohol or drug abuse patient.[facility] Encounter Details Date Type Department Care Team (Late st Contact Info) Description 09/10/2023 Patient Msg Reproductive Endocrinology Infertility [address] [place] [address] Haritha Casiano APRN.RESEARCH HYDROLOGIST [address] [facility] [place] [address] IUI information Social History Tobacco Use Types Packs/Day Years [...] 09/05/2024 1:45 PM EDT Office Visit Otolarynogology [address] [place] [address] Franklin Laboy MD [address] [place] [address] Monoallelic mutation of SDHA gene 09/05/2024 2:00 PM EDT Results Only Main [place] [address] [address] [place] [address] SDHA 09/11/2024 9:00 AM EDT [facility] Endocrinology [address] [place] [address] Mirta Valderrama MD [address] [place] [address] Monoallelic mutation of SDHA gene documented as of this encounter Visit Diagnoses Not on filedocumented in this encounter Care Teams Barrel Tester And Drainer Relationship Specialty Start Date End Date Robles Goldsmith DO [address] [place] [place] [address] Referring Obstetrics 10/13/22 Josefina Harris, ARIC [address] [place] [address] Specialty Review Rn 04/12/24 documented as of this encounter
--- OUTSIDE RECORDS SUMMARY | 2024-08-23 09:45 | XMS_ITS | Encounter Summary ---
Author Organization [facility] Address [facility] [place] [address] Care Team Providers Care Machine Room Engineer Name Role Phone Robles Goldsmith DO Unavailable [phone] Josefina Harris RN Unavailable [phone] Source Comments In the event this information is protected by the Federal Confidentiality of Alcohol and Drug AbusePatient Records regulations: The Federal rules restrict any use of the information to criminally investigate or prosecute any alcohol or drug abuse patient.[facility] Encounter Details Date Type Department Care Team (Late st Contact Info) Description 08/12/2023 Patient [facility] [place] [id number] Cee Palafox RPh At your next appointment, choose [facility]. Social History Tobacco Use Types Packs/Day [...] 09/05/2024 1:45 PM EDT Office Visit Otolarynogology [address] [place] [address] Franklin Laboy MD [address] [place] [address] Monoallelic mutation of SDHA gene 09/05/2024 2:00 PM EDT Results Only Main [place] [address] [address] [place] [address] SDHA 09/11/2024 9:00 AM EDT [facility] Endocrinology [address] [place] [address] Mirta Valderrama MD [address] [place] [address] Monoallelic mutation of SDHA gene documented as of this encounter Visit Diagnoses Not on filedocumented in this encounter Care Teams Machine Room Engineer Relationship Specialty Start Date End Date Robles Goldsmith DO [address] [place] [id number] Referring Obstetrics 10/13/22 Josefina Harris, ARIC [address] [place] [address] Specialty Threshing Department Supervisor 04/12/24 documented as of this encounter
[2024-08-23 10:57] LABS: Basophils Percent Auto 0.3 % (0.2-2.0); Eosinophils Absolute Auto 0.1 10^3/uL (0.0-0.7); Eosinophils Percent Auto 1.4 % (0.9-7.0); Hemoglobin 10.6 g/dL (12.0-16.0); Immature Granulocytes Abs Auto 0.06 10^3/uL (0.00-0.03); Immature Granulocytes Pct Auto 0.7 % (0.0-0.5); Lymphocytes Absolute Auto 1.7 10^3/uL (1.2-3.8); Lymphocytes Percent Auto 18.8 % (20.5-60.0); Mean Corpuscular HGB Conc 33.1 g/dL (29.9-35.2); Mean Corpuscular Hemoglobin 31.6 pg (26.7-34.0); Mean Corpuscular Volume 95.5 fL (81.0-99.0); Mean Platelet Volume 9.8 fL (9.5-13.5); Monocytes Absolute Auto 0.5 10^3/uL (0.3-0.8); Monocytes Percent Auto 5.3 % (1.7-12.0); Neutrophils Absolute Auto 6.5 10^3/uL (1.4-6.5); Neutrophils Percent Auto 73.5 % (43.0-75.0); Platelet Count 211 10^3/uL (150-450); Red Blood Count 3.35 10^6/uL (4.20-5.40); White Blood Count 8.8 10^3/uL (4.0-11.0)
[2024-08-23 11:31] LABS: Glucose 1 Hour 181 mg/dL (<130)
== END 2024-08-23 09:42 | disposition home or self-care (01) ==
LOC: LAB 09:42
PROVIDERS: PCP Internal Medicine; Visit Provider Obstetrics & Gynecology
DX: Z13.1 Encounter for screening for diabetes mellitus (principal)
CPT/HCPCS: 36415; 82950; 85025

== ENCOUNTER 2024-08-25 22:28 | Observation (INO) | payer OTHER, SELFPAY ==
[2024-08-25 22:31] VITALS: BP 129/74; PULSE 92
--- OUTSIDE RECORDS SUMMARY | 2024-08-25 22:33 | XMS_ITS | CCD ---
Author Organization [facility] Care Team Providers Care Provider Relations Coordinator Name Role Phone LITO VELAZQUEZ Admitting Unavailable LITO VELAZQUEZ Attending Unavailable Eliza Josefina Unavailable Robles Goldsmith DO Unavailable [phone] TANTIBHEDJOANNA, FDEE Referring Unav ailable Lito Velazquez MD Primary Care Provider JAILENE HOWARD Referring Unavailable TANTIBHEDHYANGKUL, JULMARY Referring Unav ailable TANTIBHEDHYANGKUL, JULMARY Referring Unav ailable Lito Velazquez MD Primary Care Provider [phone] RUBY CANO Attending Unavailable LITO VELAZQUEZ Primary [...] MIRTA Referring Unavailable TANTIBHEDHYANGKUL, JULIERUT Attending Unav ailable МАРИЯ LABOY Attending Unavailable FINA LIZAMA Referring Unavailable MINDZORA, ORTEGA Attending Unavailable MINDZORA, ORTEGA Referring Unavailable MINDZORA, ORTEGA Referring Unavailable TANTIBHEDHYANGKUL, FEDE Referring Unav ailable TANTIBHEDHYANGKUL, JULIERUT Referring Unav ailable ORTEGA MORRISSEY Attending Unavailable ANNAMARIE WEISS Referring Unavailable ASPEN, МАРИЯ Referring Unavailable GALLAGHER, MIRTA Referring Unavailable ASPEN, МАРИЯ Referring Unavailable Josefina Harris RN Unavailable SARAVANAN AHUMADA Attending Unavailable ANDREW FERRER Attending Unavailable SARAVANAN AHUMADA Attending Unavailable LITO VELAZQUEZ Referring Unavailable ROBLES GOLDSMITH Attending Unavailable SARAVANAN AHUMADA Referring Unavailable SARAVANAN AHUMADA Attending Unavailable LITO VELAZQUEZ Attending Unavailable RUPAL LEONE Attending Unavailable Lito Velazquez MD Primary Care Provider Jaime Mccarthy RN Attending Provider [phone] Medications Current Medications Medication Drug Class(es) Dates Sig (Normalized) Sig (Original) acetaminophen 325 mg oral capsule (1 source) Start: 06-25-2019 take 2 capsules by mouth every four to six hours as needed for pain Acetaminophen 325 mg capsule Active 650 MG PO EVERY 4-6 HOURS as needed for pain 60 June 25, 2019 12:00am [id number] 200 actuat albuterol 0.09 mg/actuat metered dose inhaler (4 sources) beta2-Adrenergic Agonist Start: 08-15-2024 End: 08-15-2025 take 2 puff(s) by inhalation every six hours for wheezing albuterol HFA (Ventolin HFA) 90 mcg/act inhaler Indications: Seasonal allergies Inhale 2 puffs every 6 (six) hours if needed for wheezing 18 g 5 08/15/2024 08/15/2025 Active cholecalciferol 0.05 mg oral tablet (20 sources) Vitamin D take 2 tablets by mouth in the morning cholecalciferol (Vitamin D-3) 50 MCG (1999 UT) tablet Take 2 tablets by mouth in the morning. Active DULoxetine 60 mg delayed release oral capsule (1 source) Serotonin and Norepinephrine Reuptake Inhibitor Start: 06-25-2019 take 1 capsule by mouth once daily Duloxetine 60 mg capsule,delayed release(DR/EC) Active 60 MG PO Daily June 25, 2019 12:00am ibuprofen 800 mg oral tablet (1 source) Nonsteroidal Anti-inflammatory Drug Start: 06-25-2019 take 1 tablet by mouth three times daily as needed for pain Ibuprofen 800 mg tablet Active 800 MG PO Three times daily as needed for pain June 25, 2019 12:00am ammonium lactate 120 mg/ml topical cream (13 sources) Start: 05-23-2024 End: 05-23-2025 ammonium lactate [...] once daily. MV-Min-Fe Fum-FA-DHA ( 1 PO) (20 sources) MV-Min- Fe Fum-FA-DHA ( 1 PO) Take by mouth Active progesterone 200 mg oral capsule (20 sources) Progesterone Start: 10-26-2023 End: 03-27-2024 progesterone micronized (PROMETRIUM) 200 mg capsule Use 1 capsule vaginally two times a day. 180 capsule 10/26/2023 Active Completed/Discontinued Medications Medication Drug Class(es) Dates Sig (Normalized) Sig (Original) chorionic gonadotropin 96540 unt/ml injectable solution (13 sources) Gonadotropin Start: 02-17-2024 End: 03-17-2024 inject 71492 [IU] by subcutaneous injection once chorionic gonadotropin [...] Translations: [Tinea unguium] 05-23-2024 Episodic Nutritional deficiencies (20 sources) Vitamin D deficiency; Translations: [Vitamin D [...] unspecified site] 06-16-2023 Episodic Other liver diseases (20 sources) Steatosis of liver; Translations: [Fatty (change [...] 4 Chronic Other and delivery including normal (11 sources) test positive; Translations: [Encounter for test, [...] [22 weeks gestation of ] 07-17-2024 Episodic Residual codes; unclassified (2 sources) Gestation period, 26 weeks; Translations: [26 weeks gestation of ] 08-16-2024 Episodic Superficial injury; contusion (1 source) Contusion of left knee; Translations: [Contusion of left knee, initial encounter] 06-25-2019 Episodic Unclassified (1 source) Infertility Onset: 4 Unclassified (17 sources) OB Reminders Onset: 5 04-30-2024 Urinary [...] Name Value Interpretation Reference Range Facil ity ALL CBC WITH AUTO DIFFon BASOPHILS ABSOLUTE AUTO 0 [facility] Basophils/100 WBC (Bld) 0.3 % 0.2 - 2.0 % [facility] Eosinophils/100 WBC (Bld) 1.4 % 0.9 - 7.0 % [facility] Erythrocyte distribution width (RBC) [Ratio] 13 % 11.0 - 15.0 % [facility] Hematocrit (Bld) [Volume fraction] 32 % Low 36.0 - 48.0 % [facility] Hemoglobin (Bld) [Mass/Vol] 10.6 g/dL Low 12.0 - 16.0 g/dL [facility] IMMATURE GRANULOCYTES ABS AUTO 0.[address] [facility] Immature granulocytes/100 WBC (Bld) 0.7 % High 0.0 - 0.5 % [facility] Interpretation and review of laboratory results Abnormal [facility] LYMPHOCYTES ABSOLUTE AUTO 1.7 [facility] Lymphocytes/100 WBC (Bld) 18.8 % Low 20.5 - 60.0 % [facility] MCH (RBC) [Entitic mass] 31.6 pg 26.7 - 34.[address] [facility] MCHC (RBC) [Mass/Vol] 33.1 g/dL 29.9 - 35.2 g/dL [facility] MCV (RBC) [Entitic vol] 95.5 fL 81.0 - 99.[address] [facility] MONOCYTES ABSOLUTE AUTO 0.5 [facility] Monocytes/100 WBC (Bld) 5.3 % 1.7 - 12.0 % [facility] NEUTROPHILS ABSOLUTE AUTO 6.5 [facility] Neutrophils/100 WBC (Bld) 73.5 % 43.0 - 75.0 % [facility] Platelet mean volume (Bld) [Entitic vol] 9.8 fL 9.5 - 13.[address] [facility] TBH EO # 0.1 [facility] TBH PLT [address] [facility] RBC 3.35 Low [facility] WBC 8.8 [facility] Urinalysis macro (dipstick) panel (U)on 08-16-2024 Bilirubin, UA Negative Negative - 4(70) +++ mg/dL [facility] Blood, UA Negative Negative - 50 Jorge Luis/mcL [facility] Clarity, UA Clear [facility] Color, UA Yellow [facility] Glucose, UA Positive Negative - 2000(110) ++++ mg/dL [facility] Comment on above: 100mg/dL Interpretation and review of laboratory results Abnormal [facility] Ketones, UA Positive Negative - 160(16) ++++ mg/dL [facility] Comment on above: 15mg/dL Leukocytes, UA Negative Negative - 500+++ Flori/mcL [facility] Nitrite, UA Negative Negative - Positive [facility] pH, UA 6.5 5 - 9 [facility] Protein, UA Negative Negative - 2000(20) ++++ mg/dL [facility] Spec Grav, UA 1.02 1 - 1.03 [facility] Urobilinogen, UA 0.2 0.2 - 12 mg/dL [facility] US OB INCOMPLETE ANATOMYon 0 08-07-2024 [place] [address] Ultrasound Report Signed Patient: LISSA RIVAS MR#: [id number] : 1995 Acct:[id number] Age/Sex: 29 / F ADM Date: 08/04/24 Loc: US Attending Dr: Saravanan Ahumada D.O. Ordering Physician: Saravanan Ahumada D.O. Date of Service: 08/04/24 Procedure(s): US OB incomplete anatomy Accession Number(s): [id number] cc: Saravanan Ahumada D.O.; [place],[address] [address] Patient Name: LISSA RIVAS MRN: [facility]:[id number] date: 1995 Sex: F Assigned Patient Location: US Current Patient Location: Accession/Order Number: [id number] Exam Date: 08/07/2024 09:41 Report Date: 08/07/2024 09:48 At the request of: SARAVANAN AHUMADA DO Procedure: US OB incomplete anatomy [...] Gage M.D. 08/07/2024 9:48 AM Dictation Location: [place] [address] Electronically authenticated by: [id number] Y Date: 08/07/2024 09:48 Dictated By: Paula Gage M.D. Signed By: 08/07/2450 DD/ TD/TT: Grain Drier Operator: [facility] Radiology, Radiologist, MD - 08/07/2024 [place] [address] Ultrasound Report Signed Patient: LISSA RIVAS MR#: [id number] : 1995 Acct:[id number] Age/Sex: 29 / F ADM Date: 08/04/24 Loc: US Attending Dr: Saravanan Ahumada D.O. Ordering Physician: Saravanan Ahumada D.O. Date of Service: 08/04/24 Procedure(s): US OB incomplete anatomy Accession Number(s): [id number] cc: Saravanan Ahumada D.O.; LITO VELAZQUEZ [place] [id number] Patient Name: LISSA RIVAS MRN: [id number] date: 1995 Sex: F Assigned Patient Location: Current Patient Location: Accession/Order Number: [id number] Exam Date: 08/07/2024 09:41 Report Date: 08/07/2024 09:48 At the request of: SARAVANAN AHUMADA DO Procedure: US OB incomplete anatomy [...] Gage M.D. 08/07/2024 9:48 AM Dictation Location: [place] [address] Electronically authenticated by: [id number] Y Date: 08/07/2024 09:48 Dictated By: Paula Gage M.D. Signed By: 08/07/2450 DD/ TD/TT: Grain Drier Operator: [facility] Radiology Study observation (narrative) [facility] US OB INCOMPLETE ANATOMYOrde red By: Radiologist Radiology on 08-07-2024 [facility] Work Phone: Urinalysis macro (dipstick) panel (U)on 07-17-2024 Bilirubin, UA Negative Negative - 4(70) +++ mg/dL [facility] Blood, UA Positive Negative - 50 Jorge Luis/mcL [facility] Comment on above: Trace-lysed Clarity, UA Clear [facility] Color, UA Yellow [facility] Glucose, UA Negative Negative - 2000(110) ++++ mg/dL [facility] Interpretation and review of laboratory results Abnormal [facility] Ketones, UA Negative Negative - 160(16) ++++ mg/dL [facility] Leukocytes, UA Negative Negative - 500+++ Flori/mcL [facility] Nitrite, UA Negative Negative - Positive [facility] pH, UA 7 5 - 9 [facility] Protein, UA Trace Negative - 2000(20) ++++ mg/dL [facility] Spec Grav, UA 1.02 1 - 1.03 [facility] Urobilinogen, UA 0.2 0.2 - 12 mg/dL [facility] US OB 14+ WEEKS ANATOMY SCAN on 07-05-2024 [...] II, MD, PHD at 07-Jul-2024 06:23:52 AM [facility] Normal Not Available Comment on above: [...] II, MD, PHD at 20-Jun-2024 09:56:32 AM [facility] Normal Not Available Comment on above: Order Comment: US OB PLACENTA W US OB TRANSVAGINAL Estimated Date of Delivery: 11/19/24 Gestational Age as of 06/19/2024: 18w1d US OB CERVICAL LENGTHon 04-30 [place] [address] Ultrasound Report Signed Patient: EMILEE RIVAS MR#: [id number] : 1995 Acct:[id number] Age/Sex: 29 / F ADM Date: 05/23/24 Loc: US Attending Dr: Saravanan Ahumada D.O. Ordering Physician: Saravanan Ahumada D.O. Date of Service: 05/23/24 Procedure(s): US OB cervical length Accession Number(s): [id number] cc: Saravanan Ahumada D.O.; [place],[address] [address] Patient Name: EMILEE RIVAS MRN: [facility]:[id number] date: 1995 Sex: F Assigned Patient Location: US Current Patient Location: US Accession/Order Number: [id number] Exam Date: 05/23/2024 23:10 Report Date: 05/23/2024 [...] Harmon Jr., D.O.05/23/2024 11:13 PM Dictation Location: [place] [address] Electronically authenticated by: [id number] Y Date: 05/23/2024 23:13 Dictated By: Navjot Harmon M.D. Signed By: 05/23/242314 DD/ 12 TD/TT: Grain Drier Operator: [facility] Radiology, Radiologist, MD - 05/24/2024 [place] [address] Ultrasound Report Signed Patient: EMILEE RIVAS MR#: [id number] : 1995 Acct:[id number] Age/Sex: 29 / F ADM Date: 05/23/24 Loc: US Attending Dr: Saravanan Ahumada D.O. Ordering Physician: Saravanan Ahumada D.O. Date of Service: 05/23/24 Procedure(s): US OB cervical length Accession Number(s): [id number] cc: Saravanan Ahumada D.O.; LITO VELAZQUEZ [address] [address] Patient Name: EMILEE RIVAS MRN: [id number] date: 1995 Sex: F Assigned Patient Location: Current Patient Location: Accession/Order Number: [id number] Exam Date: 05/23/2024 23:10 Report Date: 05/23/2024 [...] previa. Impression dictated by: Navjot Harmon Jr., DLynette05/23/2024 11:13 PM Dictation Location: [place] Electronically authenticated by: [id number] Y Date: 05/23/2024 23:13 Dictated By: Navjot Harmon M.D. Signed By: 05/23/242314 DD/ 12 TD/TT: Grain Drier Operator: [facility] Radiology Study observation (narrative) [facility] US OB CERVICAL LENGTHOrdered By: Radiologist Radiology on 05-23-2024 [facility] Work Phone: Urinalysis macro (dipstick) panel (U)on 05-22-2024 Bilirubin, UA Negative Negative - 4(70) +++ mg/dL [facility] Blood, UA Negative Negative - 50 Jorge Luis/mcL [facility] Clarity, UA Clear [facility] Color, UA Yellow [facility] Glucose, UA Negative Negative - 1999(110) ++++ mg/dL [facility] Interpretation and review of laboratory results Normal [facility] Ketones, UA Negative Negative - 160(16) ++++ mg/dL [facility] Leukocytes, UA Negative Negative - 500+++ Flori/mcL [facility] Nitrite, UA Negative Negative - Positive [facility] pH, UA 7 5 - 9 [facility] Protein, UA Negative Negative - 1999(20) ++++ mg/dL [facility] Spec Grav, UA 1.015 1 - 1.03 [facility] Urobilinogen, UA 0.2 0.2 - 12 mg/dL [facility] Urinalysis macro (dipstick) panel (U)on 05-15-2024 Bilirubin, UA Negative Negative - 4(70) +++ mg/dL [facility] Blood, UA Negative Negative - 50 Jorge Luis/mcL [facility] Clarity, UA Clear [facility] Color, UA Yellow [facility] Glucose, UA Negative Negative - 1999(110) ++++ mg/dL [facility] Interpretation and review of laboratory results Normal [facility] Ketones, UA Negative Negative - 160(16) ++++ mg/dL [facility] Leukocytes, UA Negative Negative - 500+++ Flori/mcL [facility] Nitrite, UA Negative Negative - Positive [facility] pH, UA 6 5 - 9 [facility] Protein, UA Negative Negative - 1999(20) ++++ mg/dL [facility] Spec Grav, UA 1.01 1 - 1.03 [facility] Urobilinogen, UA 0.2 0.2 - 12 mg/dL [facility] BOX TESTon 04-21-2024 BOX TEST SENT OUT 04/21/24 [facility] BOX1 [facility] BOX2 [facility] UNITY BOX [facility] HCG ( test) Ql (U)o n 04-21-2024 Interpretation and review of laboratory results Abnormal [facility] Preg Test, Ur Positive Negative [facility] US OB TRANSVAGINALon 025 US OB TRANSVAGINAL [...] UA Negative Negative - 4(70) +++ mg/dL [facility] Blood, UA Negative Negative - 50 Jorge Luis/mcL [facility] Clarity, UA Clear [facility] Color, UA Yellow [facility] Glucose, UA Negative Negative - 2000(110) ++++ mg/dL [facility] Interpretation and review of laboratory results Normal [facility] Ketones, UA Negative Negative - 160(16) ++++ mg/dL [facility] Leukocytes, UA Negative Negative - 500+++ Flori/mcL [facility] Nitrite, UA Negative Negative - Positive [facility] pH, UA 7 5 - 9 [facility] Protein, UA Negative Negative - 2000(20) ++++ mg/dL [facility] Spec Grav, UA 1.02 1 - 1.03 [facility] Urobilinogen, UA 0.2 0.2 - 12 mg/dL [facility] Healthcare CNNURSEon 2024 CNNURSE Nurse Visit (REIAV) LISSA RIVAS ([id number]) 1995 F Date Time Provider Department 04/03/24 11:10 AM [place] [address] REJ REIAV During your visit today, we recorded the following information about you: Ortega Morrissey APRN.TURN DOWN MAN 2024 4:38 PM Signed Lissa Rivas here [...] Plan Move on to OB Ortega Morrissey APRN.[employer] DOWN [employer] 2024 4:34 PM Referring Provider: ORTEGA MORRISSEY [[id number]] Allergies As of Date: 2024 (No Known Allergies) Date Reviewed: 02/23/2024 Reviewed by: Paula Hester RN - Fully Assessed Visit Diagnosis:Supervision of with history of infertility, first trimester [O09.01] Order(s):[facility] [8199091] Order #: [id number]. #:[id number] IEWPOINTQty: 1 Prescriptions as of 2024 - [...] Status:Closed by JAILENE HOWARD on 04/03/24 Normal [facility] Examination level ultrasound on 2024 Indication Viability Impression - Single, live, intrauterine . - An intrauterine gestational sac with a yolk sac and pole is present. - [place] rump length measurement is NOT consistent with [...] Read By: Jailene Howard M.D. MATERNAL MEDICINE [facility] Radiology Study observation (narrative) [facility] CONSULT PROGon 03-20-2024 CONSULT PROG HNO ID: [id number] Author: FEDE HAIRSTON MD Service: ? Author [...] Hysteroscopy Laparoscopy OPK (Ovulation Predictor Kit) Ovarian [place] [facility] 10.91 High 01/04/2023 Saline Ultrasound Semen [...] Laterality Date EYE SURGERY HX 03/2020 MICHAEL-Sid FAMILY HISTORY Problem Relation Age of Onset [...] visit. Either the patient or their legal medical collections representative has been informed of the risks and benefits of -- and alternatives to -- treatment through a remote evaluation and consents to proceed with the evaluation remotely. I spent a total of 30 minutes on the date of the service which included preparing to see the patient, [id number] patient care, counseling and educating the patient/family/caregi deborah, ordering medications, tests, or procedures, communicating results to the patient/family/caregi deborah, and care coordination (not separately reported). MD Kim Branch MD Normal [facility] B-HCG [facility] 4 HCG.beta subunit Qn 190.7 m[IU]/mL High <5.0 C [facility] Comment on above: Order Comment: Speci men Type: BLOOD SPECIMENOrdering Facility: [facility] Address: [address], [place] [address] Result Comment: LUCA TITATIVE HCG NORMAL RANGES Weeks of Gestation (Weeks Since LMP) 3 Weeks (5.8-71.2 mIU/mL) 4 Weeks (9.5-750 mIU/mL) 5 Weeks (217-7138 mIU/mL) 6 Weeks (158-85643 mIU/mL) 7 Weeks (3697-927142 mIU/mL) 8 Weeks (88590-296301 mIU/mL) 9 Weeks (59143-094627 mIU/mL) 10 Weeks (08317-156979 mIU/mL) 12 Weeks (69445-030757 mIU/mL) Referenced to 4th IS of [facility] Performed By: #### 2 1198-7 ####[facility] [id number] [address] [place] B-HCG SerPl-aCncon 4 HCG.beta subunit Qn 87.6 m[IU]/mL High <5.0 [facility] Comment on above: Order Comment: Speci men Type: BLOOD SPECIMENOrdering Facility: [facility] Address: [address] [place] [address] Result Comment: LUCA TITATIVE HCG NORMAL RANGES Weeks of Gestation (Weeks Since LMP) 3 Weeks (5.8-71.2 mIU/mL) 4 Weeks (9.5-750 mIU/mL) 5 Weeks (217-7138 mIU/mL) 6 Weeks (158-19049 mIU/mL) 7 Weeks (3697-735652 mIU/mL) 8 Weeks (67933-993953 mIU/mL) 9 Weeks (67777-897625 mIU/mL) 10 Weeks (65603-358311 mIU/mL) 12 Weeks (50902-007338 mIU/mL) Referenced to 4th IS of [facility] Performed By: #### 2 1198-7 ####[facility] [id number] [address] [place] B-HCG SerPl-aCncon 4 HCG.beta subunit Qn 21.9 m[IU]/mL High <5.0 [facility] Comment on above: Order Comment: Speci men Type: BLOOD SPECIMENOrdering Facility: [facility] Address: [address] [place] [address] Result Comment: LUCA TITATIVE HCG NORMAL RANGES Weeks of Gestation (Weeks Since LMP) 3 Weeks (5.8-71.2 mIU/mL) 4 Weeks (9.5-750 mIU/mL) 5 Weeks (217-7138 mIU/mL) 6 Weeks (158-49014 mIU/mL) 7 Weeks (3697-445699 mIU/mL) 8 Weeks (65615-006148 mIU/mL) 9 Weeks (91400-054071 mIU/mL) 10 Weeks (99675-826908 mIU/mL) 12 Weeks (71844-425935 mIU/mL) Referenced to 4th IS of [facility] Performed By: #### 2 1198-7 ####[facility] [id number] [address] [facility] CNPN Telephone (REIBD) LISSA RIVAS ([id number]) 1995 F Date Time Provider Department 03/13/24 FEDE HAIRSTON During your visit today, we recorded the following information about you: Ayanna Wise 03/13/2024 11:56 AM Signed Patient states she skipped this month and has +hpt, please follow up with patient. Ortega Morrissey APRN.[employer] 03/13/2024 1:37 PM Signed Patient calls with [...] ordered: HCG x2 FYI Dr. Bill Morrissey, INVENTORY MANAGER.T[employer] DOWN MAN March 13, 2024 1:37 PM Allergies As of Date: 03/13/2024 (No Known Allergies) Date Reviewed: 02/23/2024 Reviewed by: Paula Hester RN - Fully Assessed Reason for Visit: +hpt today/lmp 02/12 skipped treatment this month [Other] Primary Visit Diagnosis:Supervision of with history of infertility, first trimester [O09.01] Other Visit Diagnosis: examination or test, unconfirmed [Z32.00] Order(s):HCG QUANTITATIVE [SQHCGQT] Order #: [id number] STANDING Prescriptions as of 03/13/2024 - metFORMIN [...] Status:Closed by ORTEGA MORRISSEY on 03/13/24 Normal [facility] Progest Laurent-Avni 03-10-2 024 Progesterone [Mass/Vol] 17.8 ng/mL Normal See comment [facility] Comment on above: Order Comment: Speci men Type: BLOOD SPECIMENOrdering Facility: [facility] Address: [address] [place] [address] Result Comment: Mens trual Cycle Progesterone Reference Ranges: Follicular: <1.0 ng/mL Ovulation: <12.1 ng/mL Luteal: 1.8 to 23.9 ng/mL. Progesterone Reference Ranges vary by gestational period: First Trimester: 11.0 to 44.3 ng/mL Second Trimester: 25.4 to 83.3 ng/mL Third Trimester: 58.7 to 214 ng/mL Post menopausal Progesterone: <0.5 ng/mL Reference: 1. Progesterone (Progesterone III) [package insert V 1.0 Barbadian]. [facility], [place], [place]. December 2014. Performed By: #### 2 839-9 ####[facility] [id number] [place] [id number] [facility] 02-28-2024 CNPN Telephone (REIBD) LISSA RIVAS ([id number]) 1995 F Date Time Provider Department 02/28/24 FEDE HAIRSTON During your visit today, we recorded the following information about you: Joanna Garces 02/28/2024 8:23 AM Signed Pt is not financially clear yet should she still schedule it after she pays Ortega Morrissey APRN.[employer] 02/28/2024 11:54 AM Signed Spoke with Thao, [...] cycle day 3-7 Authorizing Provider: ORTEGA MORRISSEY APRN.[employer] February 28, 2024 11:54 AM Allergies As of Date: 02/28/2024 (No Known Allergies) Date Reviewed: 02/23/2024 Reviewed by: Paula Hester RN - Fully Assessed Reason for Visit: ortega pt is not cleared for us should she still have it do [Other] Primary Visit Diagnosis:Female infertility [N97.9] Order(s):PROGESTERONE [SQPROG] Order #: [id number] FUTURE letrozole (FEMARA) 2.5 mg tabletTake 3 [...] Status:Closed by ORTEGA MORRISSEY on 02/28/24 Normal [facility] 25([place])D3 [facility] 2023 25-hydroxyvitamin D3 [Mass/Vol] 49.3 ng/mL Normal 31.0-80.0 [facility] Comment on above: Order Comment: Speci men Type: BLOOD SPECIMEN [facility] Address: [address] [place] [address] Result Comment: Clas sification of 25 [place] Vitamin D status: Deficiency/Insufficiency: < or = 30 ng/ml. Sufficiency/Optimal Levels: 31-80 ng/mL Toxicity: > 100 ng/mL. Test performed by chemiluminescent immunoassay. Performed By: #### 1 989-3 #### [facility] CLIA [id number] [address] [place] [address] [place] 25-hydroxyvitamin D3 [Mass/V ol]on 02-23-2024 Interpretation and review of laboratory results Normal [facility] The reference range interval was based on an analysis of samples from healthy adults and may not pertain to children from 0-18 years old. [facility] CBC panel Auto (Bld)on 02-22 Erythrocyte distribution width (RBC) [Ratio] 12.4 % 11.5 - 15.0 % [facility] Hematocrit (Bld) [Volume fraction] 40.6 % 36.0 - 46.0 % [facility] Hemoglobin (Bld) [Mass/Vol] 13.5 g/dL 11.5 - 15.5 g/dL [facility] Interpretation and review of laboratory results Normal [facility] MCH (RBC) [Entitic mass] 31.1 pg 26.0 - 34.0 pg [facility] MCHC (RBC) [Mass/Vol] 33.3 g/dL 30.5 - 36.0 g/dL [facility] MCV (RBC) [Entitic vol] 93.5 fL 80.0 - 100.0 fL [facility] Nucleated RBC (Bld) [#/Vol] NINF [facility] Platelet mean volume (Bld) [Entitic vol] 10.6 fL 9.0 - 12.7 fL [facility] Platelets (Bld) [#/Vol] 261 10*3/uL [facility] RBC (Bld) [#/Vol] 4.34 10*6/uL 3.90 - 5.2 0 m/uL [facility] WBC (Bld) [#/Vol] 8.81 10*3/uL [facility] Erythrocyte distribution width (RBC) [Ratio] 12.4 % Normal 11.5-15.0 [facility] Comment on above: Order Comment: Speci arsen Type: BLOOD SPECIMEN [facility] Address: [address] [place] [address] Performed By: #### 5 8410-2 #### [facility] CLIA [id number] [address] [place] [address] [place] Hematocrit (Bld) [Volume fraction] 40.6 % Normal 36.0-46.0 [facility] Comment on above: Order Comment: Speci men Type: BLOOD SPECIMEN [facility] Address: [address] [place] [address] Performed By: #### 5 8410-2 #### [facility] CLIA [id number] [address] [place] [address] [place] Hemoglobin (Bld) [Mass/Vol] 13.5 g/dL Normal 11.5-15.5 [facility] Comment on above: Order Comment: Speci men Type: BLOOD SPECIMEN [facility] Address: [address] [place] [address] Performed By: #### 5 8410-2 #### [facility] [place] [id number] [address] [place] MCH (RBC) [Entitic mass] 31.1 pg Normal 26.0-34.0 [facility] Comment on above: Order Comment: Speci men Type: BLOOD SPECIMEN [facility] Address: [address] [place] [address] Performed By: #### 5 8410-2 #### [facility] IA [id number] [place] [address] [place] MCHC (RBC) [Mass/Vol] 33.3 g/dL Normal 30.5-36.0 [facility] Comment on above: Order Comment: Speci men Type: BLOOD SPECIMEN [facility] Address: [address] [place] [address] Performed By: #### 5 8410-2 #### [facility] IA [id number] [address] [place] [address] [place] MCV (RBC) [Entitic vol] 93.5 fL Normal 80.0-100.0 [facility] Comment on above: Order Comment: Speci men Type: BLOOD SPECIMEN [facility] Address: [address] [place] [address] Performed By: #### 5 8410-2 #### [facility] IA [id number] [address] [place] [address] OF [facility] Nucleated RBC (Bld) [#/Vol] 10*3/uL Normal <0.01 [facility] Comment on above: Order Comment: Speci men Type: BLOOD SPECIMEN [facility] Address: [address] [place] [address] Performed By: #### 5 8410-2 #### [facility] IA [id number] [place], [place] [address] [place] Platelet mean volume (Bld) [Entitic vol] 10.6 fL Normal 9.0-12.7 [facility] Comment on above: Order Comment: Speci men Type: BLOOD SPECIMEN [facility] Address: [address] [place] [address] Performed By: #### 5 8410-2 #### [facility] CLIA [id number] [address] [place], [place] [id number] [place] [address] [place] Platelets (Bld) [#/Vol] 261 10*3/uL Normal 150-400 [facility] Comment on above: Order Comment: Speci men Type: BLOOD SPECIMEN [facility] Address: [address] [place] [address] Performed By: #### 5 8410-2 #### [facility] IA [id number] [address] [place] RBC (Bld) [#/Vol] 4.34 10*6/uL Normal 3.90-5.20 [facility] Comment on above: Order Comment: Speci men Type: BLOOD SPECIMEN [facility] Address: [address] [place] [address] Performed By: #### 5 8410-2 #### [facility] CLIA [id number] [address] [place] WBC (Bld) [#/Vol] 8.81 10*3/uL Normal 3.70-11.00 [facility] Comment on above: Order Comment: Speci men Type: BLOOD SPECIMEN [facility] Address: [address] [place] [address] Performed By: #### 5 8410-2 #### [facility] CLIA [id number] [address] [facility] [place] [id number] [facility] 02-23-2024 CNNURSE Nurse Visit (REIAV) LISSA RIVAS ([id number]) 1995 F Date Time Provider Department 02/23/24 [...] Ortega Morrissey APRN.CNP 02/23/2024 1:56 PM Signed Lissahao Rivas is here today for a midcycle scan. Lead follicle: 11 Plan: repeat scan 02/24 Ortega Morrissey APRN.CNP February 23, 2024 1:54 PM Please schedule the patient for the following- Location: [facility] Provider: Nurse Visit type: midcycle Reason for visit/appointment notes: midcycle Date: 02/24 Time (requested): 0730 If slot is full, please schedule the closest open slot. Call to patient needed: Ortega Martinez APRN.CNP 02/23/2024 4:03 PM Signed Addended by: ORTEGA MORRISSEY on: 02/23/2024 04:03 PM Modules accepted: Orders Referring Provider: ORTEGA MORRISSEY [[id number]] Allergies As of Date: 02/23/2024 (No Known Allergies) Date Reviewed: 02/23/2024 Reviewed by: Paula Hester RN - Fully Assessed Reason for Visit: Infertility [285] Visit Diagnosis:Female infertility [N97.9] Order(s):FOLLICULAR US [facility]I [[id number]] Order #: [id number]. #:[id number] IEWPOINTQty: 1 FOLLICULAR US WHI [] Order #: [id number]: 1 FUTURE Prescriptions as of 02/23/2024 - [...] Status:Closed by VANESSA VO on 02/23/24 Normal [facility] Cobalamin (Vitamin B12) [Mas s/Vol]on 02-23-2024 Interpretation and review of laboratory results Normal [facility] metabolic 2000 panelon 02-23-2024 Albumin [Mass/Vol] 4.5 g/dL 3.9 - 4.9 g/dL Cl [facility] ALP [Catalytic activity/Vol] 65 U/L 34 - 123 U/L [facility] ALT [Catalytic activity/Vol] 41 U/L High 7 - 38 U/L [facility] Anion gap [Moles/Vol] 12 mmol/L 8 - 15 mmol/L [facility] AST [Catalytic activity/Vol] 21 U/L 13 - 35 U/L [facility] Bilirubin [Mass/Vol] 0.2 mg/dL 0.2 - 1.3 mg/dL [facility] Calcium [Mass/Vol] 9.3 mg/dL 8.5 - 10. 2 mg/dL [facility] Chloride [Moles/Vol] 105 mmol/L 98 - 107 mmol/L [facility] CO2 [Moles/Vol] 24 mmol/L 22 - 30 mmol/L [facility] Creatinine [Mass/Vol] 0.78 mg/dL 0.58 - 0.96 mg/dL [facility] GFR/1.73 sq M.predicted among non-blacks MDRD (S/P/Bld) [Vol rate/Area] 106 mL/min/{1.73_m2} - PINF [facility] Comment on above: Estimated Glomerular Filtration [...] [Mass/Vol] 98 mg/dL 74 - 99 mg/dL [facility] Comment on above: The [place] Diabete s Association (ADA) provides guidance for [...] Standards of Medical Care in Diabetes 2016, [place] Diabetes Association. Diabetes Care. 2016.39(Suppl 1). Interpretation and review of laboratory results Abnormal [facility] Potassium [Moles/Vol] 4.3 mmol/L 3.7 - 5.1 mmol/L [facility] Protein [Mass/Vol] 7.3 g/dL 6.3 - 8.0 g/dL [facility] Sodium [Moles/Vol] 141 mmol/L 136 - 144 mmol/L [facility] Urea nitrogen [Mass/Vol] 11 mg/dL 7 - 21 mg/dL [facility] Albumin [Mass/Vol] 4.5 g/dL Normal 3.9-4.9 [facility] Comment on above: Order Comment: Jarek leger Type: BLOOD SPECIMEN [facility] Address: [address] [place] [address] Performed By: #### 2 4323-8 #### [facility] CLIA [id number] [address] [place] [address] [place] ALP [Catalytic activity/Vol] 65 U/L Normal 34-123 [facility] Comment on above: Order Comment: Jarek leger Type: BLOOD SPECIMEN [facility] Address: [address] [place] [address] Performed By: #### 2 4323-8 #### [facility] CLIA [id number] [address] [place] [address] [place] ALT [Catalytic activity/Vol] 41 U/L High 7-38 [facility] Comment on above: Order Comment: Harmonyi arsen Type: BLOOD SPECIMEN [facility] Address: [address] [place] [address] Performed By: #### 2 4323-8 #### [facility] CLIA [id number] [address] [place] [address] [place] Anion gap [Moles/Vol] 12 mmol/L Normal 8-15 [facility] Comment on above: Order Comment: Harmonyi men Type: BLOOD SPECIMEN [facility] Address: [address] [place] [address] Performed By: #### 2 4323-8 #### [facility] CLIA [id number] [address] [place] [address] [place] AST [Catalytic activity/Vol] 21 U/L Normal 13-35 [facility] Comment on above: Order Comment: Speci men Type: BLOOD SPECIMEN [facility] Address: [address] [place] [address] Performed By: #### 2 4323-8 #### [facility] CLIA [id number] [address] [place] [address] [place] Bilirubin [Mass/Vol] 0.2 mg/dL Normal 0.2-1.3 [facility] Comment on above: Order Comment: Speci men Type: BLOOD SPECIMEN [facility] Address: [address] [place] [address] Performed By: #### 2 4323-8 #### [facility] IA [id number] [address] [place] [address] [place] Calcium [Mass/Vol] 9.3 mg/dL Normal 8.5-10.2 [facility] Comment on above: Order Comment: Speci men Type: BLOOD SPECIMEN [facility] Address: [address] [place] [address] Performed By: #### 2 4323-8 #### [facility] IA [id number] [address] [place] [address] [place] Chloride [Moles/Vol] 105 mmol/L Normal 98-107 [facility] Comment on above: Order Comment: Speci men Type: BLOOD SPECIMEN [facility] Address: [address] [place] [address] Performed By: #### 2 4323-8 #### [facility] CLIA [id number] [address] [place] [address] [place] CO2 [Moles/Vol] 24 mmol/L Normal 22-30 [facility] Comment on above: Order Comment: Speci men Type: BLOOD SPECIMEN [facility] Address: [address] [place] [address] Performed By: #### 2 4323-8 #### [facility] CLIA [id number] [address] [place] [address] [place] Creatinine [Mass/Vol] 0.78 mg/dL Normal 0.58-0.96 [facility] Comment on above: Order Comment: Jarek leger Type: BLOOD SPECIMEN [facility] Address: [address] [place] [address] Performed By: #### 2 4323-8 #### [facility] CLIA [id number] [address] [place] [address] [place] Creatinine and Glomerular filtration rate.predicted panel (S/P/Bld) 106 mL/min/1.73m??? Normal >=60 [facility] Comment on above: Order Comment: Jarek [facility] Type: BLOOD SPECIMEN [facility] Address: [address] [place] [address] Result Comment: Estefanía mated Glomerular Filtration Rate [...] GFR. Performed By: #### 2 4323-8 #### [facility] CLIA [id number] [address] [place] [address] [place] Glucose [Mass/Vol] 98 mg/dL Normal 74-99 [facility] Comment on above: Order Comment: Jarek [facility] Type: BLOOD SPECIMEN [facility] Address: [address] [place] [address] Result Comment: The [place] Diabetes Association (ADA) provides guidance for cutoff [...] Standards of Medical Care in Diabetes 2016, [place] Diabetes Association. Diabetes Care. 2016.39(Suppl 1). Performed By: #### 2 4323-8 #### [facility] CLIA [id number] [address] [place] [address] [place] Potassium [Moles/Vol] 4.3 mmol/L Normal 3.7-5.1 [facility] Comment on above: Order Comment: Jarek leger Type: BLOOD SPECIMEN [facility] Address: [address] [place] [address] Performed By: #### 2 4323-8 #### [facility] IA [id number] [address] [place] [address] [place] Protein [Mass/Vol] 7.3 g/dL Normal 6.3-8.0 [facility] Comment on above: Order Comment: Jarek leger Type: BLOOD SPECIMEN [facility] Address: [address] [place] [address] Performed By: #### 2 4323-8 #### [facility] IA [id number] [address] [place] [address] [place] Sodium [Moles/Vol] 141 mmol/L Normal 136-144 [facility] Comment on above: Order Comment: Jarek leger Type: BLOOD SPECIMEN [facility] Address: [address] [place] [address] Performed By: #### 2 4323-8 #### [facility] CLIA [id number] [address] [place] [address] [place] Urea nitrogen [Mass/Vol] 11 mg/dL Normal 7-21 [facility] Comment on above: Order Comment: Jarek leger Type: BLOOD SPECIMEN [facility] Address: [address] [place] [address] Performed By: #### 2 4323-8 #### [facility] CLIA [id number] [address] [facility] [place] [address] [place] Follicle Diameter USon [...] free fluid visualized Performed By: Cornelia Macario; [facility] Read By: Vanessa Vo M.D. MATERNAL MEDICINE [facility] Radiology Study observation (narrative) [facility] HbA1c (Bld)on 02-23-2024 Average glucose Estimated from glycated hemoglobin (Bld) [Mass/Vol] 111 mg/dL [facility] Comment on above: eAG: (Estimated aver age glucose) is a calculated value from HgbA1c and is medical collections representative of the average blood glucose level in the last 2-3 month period. HbA1c (Bld) [Mass fraction] 5.5 % 4.3 - 5.6 % [facility] Comment on above: Greek Diabetes As sociation guidelines indicate that patients with HgbA1c in the range 5.7-6.4% are at increased risk for development of diabetes, and intervention by lifestyle modification may be beneficial. HgbA1c greater or equal to 6.5% is considered diagnostic of diabetes. [facility] Average glucose Estimated from glycated hemoglobin (Bld) [Mass/Vol] 111 mg/dL Normal [facility] Comment on above: Order Comment: Jarek leger Type: BLOOD SPECIMEN [facility] Address: [address] [place] [address] Result Comment: eAG: (Estimated average glucose) is a calculated value from HgbA1c and is medical collections representative of the average blood glucose level in the last 2-3 month period. Performed By: #### 5 5454-3 #### [facility] CLIA [id number] [address] [place] [address] [facility] HbA1c (Bld) [Mass fraction] 5.5 % Normal 4.3-5.6 [facility] Comment on above: Order Comment: Jarek leger Type: BLOOD SPECIMEN [facility] Address: [address] [place] [address] Result Comment: Amer ican Diabetes Association guidelines indicate that patients with HgbA1c in the range 5.7-6.4% are at increased risk for development of diabetes, and intervention by lifestyle modification may be beneficial. HgbA1c greater or equal to 6.5% is considered diagnostic of diabetes. Performed By: #### 5 5454-3 #### [facility] CLIA [id number] [address] [place] [address] [facility] VITAMIN B12on 02-23-2024 Cobalamin (Vitamin B12) [Mass/Vol] 567 pg/mL 232 - 1245 pg/mL [facility] VITAMIN D 25 HYDROXYon 02-22 25-hydroxyvitamin D3 [Mass/Vol] 49.3 ng/mL 31.0 - 80.0 ng/mL [facility] Comment on above: Classification of 25 [place] Vitamin D status: Deficiency/Insufficiency: < or = 30 ng/ml. Sufficiency/Optimal Levels: 31-80 ng/mL Toxicity: > 100 ng/mL. Test performed by chemiluminescent immunoassay. Vit B12 SerPl-mCncon 024 Cobalamin (Vitamin B12) [Mass/Vol] 567 pg/mL Normal 232-1245 [facility] Comment on above: Order Comment: Speci men Type: BLOOD SPECIMEN [facility] Address: [address] [place], [place] [address] [address] Performed By: #### 2 132-9 #### [facility] CLIA [id number] [address] [place] [address] [facility] 02-21-2024 JORDANN Telephone (REIBD) LISSA RIVAS ([id number]) 1995 F Date Time Provider Department 02/21/24 FEDE HAIRSTON During your visit today, we recorded the following information about you: Joanna Garces 02/21/2024 10:32 AM Signed Needs [facility] Ortega Mckeon APRN.CNP 02/21/2024 10:40 AM Signed Medication send the [facility] specialty on 02/17. Ortega Morrissey APRN.JORDAN February 21, 2024 10:39 AM Allergies As of Date: 02/21/2024 (No Known Allergies) Date Reviewed: 11/22/2023 Reviewed by: Ortega Morrissey APRN.TURN DOWN MAN - Fully Assessed Reason for Visit: needs [...] Encounter Status:Closed by ORTEGA MORRISSEY on 02/21/24 [facility] [id number] 02-17-2024 HNO ID: [id number] Author: FEDE HAIRSTON MD Service: ? Author [...] visit. Either the patient or their legal medical collections representative has been informed of the risks and benefits of -- and alternatives to -- treatment through a remote evaluation and consents to proceed with the evaluation remotely. I spent a total of 30 minutes on the date of the service which included preparing to see the patient, [id number] patient care, counseling and educating the patient/family/caregi deborah, ordering medications, tests, or procedures, communicating results to the patient/family/caregi deborah, and care coordination (not separately reported). Kim Khan MD [facility] APTIMA MULTITEST VAGINALon 1 04-17-2023 [facility] No Panel Informationon 02-15 APTIMA BACTERIAL VAGINOSIS Not detected [facility] APTIMA SHANTA GLABRATA Not detected [facility] APTIMA CHLAMYDIA TRACHOMATIS [address] [facility] APTIMA CHLAMYDIA TRACHOMATIS Not detected ppm [facility] CNPNon 02-15-2024 CNPN Telephone (REIBD) LISSA RIVAS ([id number]) 1995 F Date Time Provider Department 02/15/24 [...] cycle day 3-7Disp: 10 tabletRfl: 2 [facility]ULAR [facility] [[id number]] Order #: [id number]: 1 FUTURE Prescriptions as of 02/15/2024 - [...] Status:Closed by ORTEGA MORRISSEY on 02/15/24 Normal [facility] POCT trichomonas alexis david 02-15-2024 Bacterial vaginosis and vaginitis DNA panel Probe+sig amp (Vag fld) Negative Negative [facility] Interpretation and review of laboratory results Normal [facility] Trichomonas, UA Negative [facility] Yeast Negative [facility] [...] rocha is working with reproductive specialist at [facility] and needs MRI done within the next 13 days. If [facility] not able to accommodate her, anywhere that is able to schedule within that timeframe would be fine. Alexandra 01-14-2024 LAURA Telephone (REIBD) LISSA RIVAS ([id number]) 1995 F Date Time Provider Department 01/14/24 ORTEGA MORRISSEY REPEDRO During your visit today, we recorded the following information about you: Keren Carcamo 01/14/2024 9:04 AM Signed Pt started cycle 01/12 and would like to discuss plan for scheduling iui Ortega Morrissey APRN.TURN DOWN MAN 01/14/2024 4:18 PM Signed Spoke with Lissa, She is planning to use OPK only this cycle. Jeferson call with LH surge. Ortega Morrissey APRN.CNP January 14, 2024 4:17 PM Allergies As of Date: 01/14/2024 (No Known Allergies) Date Reviewed: 11/22/2023 Reviewed by: Ortega Morrissey APRN.TURN DOWN MAN - Fully Assessed Reason for Visit: iui [...] Encounter Status:Closed by ORTEGA MORRISSEY on 01/14/24 [facility] CNOVon 12-31-2023 CNOV Office Visit (REIAV) LISSA RIVAS ([id number]) 1995 F Date Time Provider Department 12/31/23 10:00 AM ORTEGA MORRISSEY REIAV During your visit today, we recorded the following information about you: Last Period 12/12/23 Cruz Prescott MA 12/31/2023 10:07 AM Signed Fig Bar Machine Operator offered: Patient declines. Ortega Morrissey APRN.CNP 12/31/2023 [...] Cycle Day: 20 Last menstrual period: 12/12/2023 [place] Protocol: UNIVERSAL PROTOCOL / SAFETY CHECKLIST Procedure [...] IUI IUI Date: 12/31/23 Partner's Name: Brenton Evelyn IUI Time: 10:16 AM EDT Partner's : [...] Dec 31, 2023 10:07 AM Status: Signed Fig Bar Machine Operator offered: Patient declines. Encounter Status:Closed by ORTEGA MORRISSEY on 12/31/23 [facility] Nurse Visit (LOUISIAV) LISSA RIVAS ([id number]) 1995 F Date Time Provider Department 12/21/23 [...] plan provided to patient via a Fertility cleaning team member. MD Darrell Branch Laura, RN 12/21/2023 2:32 PM Signed pt using LH surge strips and will call to irvin Grewal RN December 21, 2023 2:32 PM Referring Provider: ORTEGA MORRISSEY [[id number]] Allergies As of Date: 12/21/2023 (No Known Allergies) Date Reviewed: 11/22/2023 Reviewed by: Ortega Morrissey APRN.TURN DOWN MAN - Fully Assessed Visit Diagnosis:Female infertility [N97.9] Order(s):[facility]ICULAR [facility] [[id number]] Order #: [id number]. #:[id number] IEWPOINTQty: 1 Prescriptions as of 12/21/2023 - [...] Status:Closed by ROBIN GREWAL on 12/21/23 Normal [facility] Follicle Diameter USon 12-20 Indication MIdcycle, Follicle [...] free fluid visualized Performed By: Cornelia Macario; ADÁN Read By: Fede Hairston M.D. MATERNAL MEDICINE [facility] Radiology Study observation (narrative) Theresa torres [facility]20[facility] (REIBD[facility] LISSA RIVAS ([id number]) 1995 F Date Time Provider Department 12/13/23 [...] Primary Visit Diagnosis:Female infertility [N97.9] Order(s):FOLLICULAR US [facility] [[id number]] Order #: [id number]: 1 FUTURE Choriogonadotropin Pam,HumRec (OVIDREL) 250 mcg/0.5 [...] Encounter Status:Closed by ORTEGA MORRISSEY on 12/13/23 [facility] Mando 11-28-2023 CNOV Office Visit (REIBD) LISSA RIVAS ([id number]) 1995 F Date Time Provider Department 11/28/23 [...] Cycle Day: 13 Last menstrual period: 11/12/2023 [place] Protocol: UNIVERSAL PROTOCOL / SAFETY CHECKLIST Procedure [...] # 44.8 million Referring Provider: DESHAWN RIOJAS [[id number]] Allergies As of Date: 11/28/2023 (No Known Allergies) Date Reviewed: 11/22/2023 Reviewed by: Ortega Morrissey APRN.TURN DOWN MAN - Fully Assessed Primary Visit Diagnosis:Female infertility [...] Encounter Status:Closed by DESHAWN RIOJAS on 11/28/23 [facility] CNNURSEon 11-22-2023 CNNURSE Nurse Visit (REIAV) LISSA RIVAS ([id number]) 1995 F Date Time Provider Department 11/22/23 7:15 AM NURSE GAYATHRI [facility] [place] REJOSELINE During your visit today, we recorded the [...] called patient. She will drive back to [place] now to get done. Erma Donis RN November 22, 2023 8:45 AM 11/22/2023 11 trigger 25+<10mm 21.2, 25+<10mm 5.6mm tri p4=0.3 lh=5.1 JR 11/23/2023 12 11/24/2023 13 IUI RN called patient, name and verified. Plan given for midcycle per physician, see flowsheet for details. [employer] message sent. Medications reviewed and verified, instructions given. Patient denies any questions or concerns. Erma Donis RN November 22, 2023 12:53 PM Referring Provider: ORTEGA MORRISSEY [[id number]] Allergies As of Date: 11/22/2023 (No Known Allergies) Date Reviewed: 11/22/2023 Reviewed by: Ortega Morrissey APRN.TURN DOWN MAN - Fully Assessed Visit Diagnosis:Female infertility [N97.9] Order(s):FOLLICULAR US WHI [[id number]] Order #: [id number]. #:[id number] IEWPOINTQty: 1 PROGESTERONE [SQPROG] Order #: [id number] FUTURE LUTEINIZING HORMONE [SQLH] Order #: [id number] FUTURE Prescriptions as of 11/22/2023 - progesterone [...] 08/17/2023 Encounter Status:Closed by JAILENE HOWARD on 8/26/24 [facility] Follicle Diameter USon 11-21 Indication Follicle monitoring, [...] Read By: Jailene Howard M.D. MATERNAL MEDICINE [facility] Radiology Study observation (narrative) [facility] LH SerPl-aCncon 11-22-2023 Lutropin Qn 5.1 m[IU]/mL Normal See comment [facility] Comment on above: Order Comment: Speci men Type: BLOOD SPECIMEN [facility] Address: [address] [place] [address] Result Comment: Refe rence range: Follicular: 2.4-12.6 mIU/mL Midcycle: 14.0-95.6 mIU/mL Luteal: 1.0-11.4 mIU/mL Post Kelsey: 7.7-58.5 mIU/mL Performed By: #### 2 839-9, 78068-6 #### [facility] CLIA [id number] [facility] [place], [place] [id number] [place] [address] OF [place] LUTEINIZING HORMONEon 2023 Lutropin Qn 5.1 m[IU]/mL See comment mIU/mL [facility] Comment on above: Reference range: Follicular: 2.4-12.6 mIU/mL Midcycle: 14.0-95.6 mIU/mL Luteal: 1.0-11.4 mIU/mL Post Jennings: 7.7-58.5 mIU/mL No Panel Informationon 11-21 [facility] PROGESTERONEon 11-22-2023 Progesterone [Mass/Vol] 0.3 ng/mL See comment [facility] Comment on above: Menstrual Cycle Prog esterone Reference Ranges: Follicular: <1.0 ng/mL Ovulation: <12.1 ng/mL Luteal: 1.8 to 23.9 ng/mL. Progesterone Reference Ranges vary by gestational period: First Trimester: 11.0 to 44.3 ng/mL Second Trimester: 25.4 to 83.3 ng/mL Third Trimester: 58.7 to 214 ng/mL Post menopausal Progesterone: <0.5 ng/mL Reference: 1. Progesterone (Progesterone III) [package insert V 1.0 Barbadian]. [employer], [place], [place]. December 2014. Progest SerPl-mCncon 024 Progesterone [Mass/Vol] 0.3 ng/mL Normal See comment [facility] Comment on above: Order Comment: Speci men Type: BLOOD SPECIMEN [facility] Address: [address] [place] [address] Result Comment: Mens trual Cycle Progesterone Reference Ranges: Follicular: <1.0 ng/mL Ovulation: <12.1 ng/mL Luteal: 1.8 to 23.9 ng/mL. Progesterone Reference Ranges vary by gestational period: First Trimester: 11.0 to 44.3 ng/mL Second Trimester: 25.4 to 83.3 ng/mL Third Trimester: 58.7 to 214 ng/mL Post menopausal Progesterone: <0.5 ng/mL Reference: 1. Progesterone (Progesterone III) [package insert V 1.0 Barbadian]. [employer], [place], [place]. December 2014. Performed By: #### 2 839-9, 16271-6 #### [facility] CLIA [id number] [facility]. [place], [place] [id number] [place] [address] OF [facility] Alexandra 11-12-2023 LAURA Telephone (REIBD) LISSA RIVAS ([id number]) 1995 F Date Time Provider Department 11/12/23 [...] schedule the patient for the following- Location: [place] Provider: Nurse Visit type: Follicular scan Reason [...] Visit Diagnosis:Female infertility [N97.9] Order(s):FOLLICULAR US WHI [[id number]] Order #: [id number]: 1 FUTURE Prescriptions as of 11/15/2023 - [...] Encounter Status:Closed by ORTEGA MORRISSEY on 11/15/23 [facility] Mando 10-26-2023 CNOV Office Visit (REIAV) LISSA RIVAS ([id number]) 1995 F Date Time Provider Department 10/26/23 [...] Cycle Day: 15 Last menstrual period: 10/12/2023 [place] Protocol: UNIVERSAL PROTOCOL / SAFETY CHECKLIST Procedure [...] TIME: 11:36 AM Referring Provider: ORTEGA MORRISSEY [[id number]] Allergies As of Date: 10/26/2023 (No Known [...] Encounter Status:Closed by ORTEGA MORRISSEY on 10/26/[facility] (DAVI[facility] IANNELLO,LISSA ([id number]) 1995 F Date Time Provider Department 10/22/23 7:00 AM NURSE GAYATHRI [facility] [place] TOMLINSON During your visit today, we recorded the following information about you: Erma Donis RN 10/22/2023 1:41 PM Signed Lissa Rivas is here today for a midcycle scan. Lead follicle: 14 Erma Donis RN October 22, 2023 7:25 AM RN called patient, name and verified. Plan given for midcycle per physician, see flowsheet for details. [employer] message sent. Medications reviewed and verified, instructions [...] Trevizo MD, FLACO Referring Provider: ORTEGA MORRISSEY [[id number]] Allergies As of Date: 10/22/2023 (No Known Allergies) Date Reviewed: 08/18/2023 Reviewed by: Cruz Prescott MA - Fully Assessed Visit Diagnosis:Female infertility [N97.9] Order([facility] [[id number]] Order #: [id number]. #:[id number] IEWPOINTQty: 1 Prescriptions as of 10/22/2023 - [...] Status:Closed by ERMA DONIS on 10/22/23 Normal [facility] Follicle Diameter USon 10-21 Indication Baseline TV [...] Read By: Ayanna Trevizo MD MATERNAL MEDICINE [facility] Radiology Study observation (narrative) [facility] 10-20-2023 CNPN Telephone (REIBD) LISSA RIVAS ([id number]) 1995 F Date Time Provider Department 10/20/23 SELF REIBD During your visit today, we recorded the following information about you: Keren Carcamo 10/20/2023 2:26 PM Signed Pts pharmacy called and would like to know when she needs to order trigger shot Ani Stovall APRN.CNP 10/20/2023 3:11 PM Signed patient instructed to order trigger now so that she has it by Wednesday Ani Stovall APRN.TURN DOWN MAN October 20, 2023 3:10 PM Allergies As [...] Encounter Status:Closed by ANI STOVALL on 10/20/23 [facility] Alex[facility]20[facility] ([facility] LISSA RIV[facility] ([id number]) 1995 F Date Time Provider Department 10/12/23 [...] Call to patient needed: Ortega Martinez APRN.CNP 10/12/2023 4:10 PM Signed The following [...] Status:Closed by ORTEGA MORRISSEY on 10/12/23 Normal [facility] B-HCG SerPl-aCncon 4 HCG.beta subunit Qn m[IU]/mL Normal <5.0 [facility] Comment on above: Order Comment: Speci men Type: BLOOD SPECIMENOrdering Facility: [facility] Address: [address] [place] [address] Result Comment: Nega tive Performed By: #### 2 1198-7 ####[facility] [id number] [place] [address] [place] C. trachomatis+N. gonorrhoea e DNA JANESSA+probe Ql (Unsp spec)on 09-13-2023 C. trachomatis rRNA JANESSA+probe Ql (Unsp spec) Negative Normal Negative for Chlamydia trachomatis by amplificaton [facility] Comment on above: Order Comment: Speci men Type: URINE SPECIMENOrdering Facility: [facility] Address: [address] [place] [address] Performed By: #### 3 6902-5 ####[facility] [id number] [place] [address] [place] N. gonorrhoeae rRNA JANESSA+probe Ql (Unsp spec) Negative Normal Negative for Neisseria gonorrhoeae by amplification [facility] Comment on above: Order Comment: Speci men Type: URINE SPECIMENOrdering Facility: [facility] Address: [address] [place] [address] Performed By: #### 3 6902-5 ####[facility] [id number] [place] [address] [place] HBV surface Ag Ser Qlon 08-27 HBV surface Ag Ql (S) Negative Normal Negative [facility] Comment on above: Order Comment: Speci men Type: BLOOD SPECIMENOrdering Facility: [facility] Address: [address] [place] [address] Performed By: #### 3 1201-7, 59616-4, 5195-3 ####[facility] [id number] [place] [address] [place] HCV Ab Ser Qlon 09-13-2023 HCV Ab Ql (S) Negative Normal Negative [facility] Comment on above: Order Comment: Speci men Type: BLOOD SPECIMENOrdering Facility: [facility] Address: [address] [place] [address] Result Comment: The result suggests no evidence of active infection with Hepatitis C virus. Should recent infection be suspected, repeat testing may be considered 4-6 weeks after this draw. Performed By: #### 1 6128-1 ####[facility] [id number] [place] [address] [place] HIV 1+2 Ab IA Qlon HIV 1 and 2 Ab IA.rapid Nom (S/P/Bld) Normal [facility] Comment on above: Order Comment: Speci men Type: BLOOD SPECIMENOrdering Facility: [facility] Address: [address] [place] [address] Result Comment: Test not indicated. Performed By: #### 3 1201-7, 63661-8, 5195-3 ####[facility] [id number] [place] [address] [place] HIV 1+2 Ab+HIV1 p24 Ag IA Ql Non-Reactive Normal Nonreactive [facility] Comment on above: Order Comment: Speci men Type: BLOOD SPECIMENOrdering Facility: [facility] Address: [address] [place] [address] Performed By: #### 3 1201-7, 82177-2, 5195-3 ####[facility] [id number] [place] [address] [place] HIV immunoassay testing algorithm interpretation (S/P/Bld) [Interp] Normal [facility] Comment on above: Order Comment: Speci men Type: BLOOD SPECIMENOrdering Facility: [facility] Address: [address] [place] [address] Result Comment: No e vidence of HIV-1 or HIV-2 infection. Should recent infection be suspected, repeat testing may be considered 2-3 weeks after this draw. [place] Rev. Code 3701.243(E): This information has been [...] or diagnoses. Performed By: #### 3 1201-7, 96150-1, 5195-3 ####[facility] [id number] [place] [address] [place] Progest SerPl-mCncon 024 Progesterone [Mass/Vol] 0.3 ng/mL Normal See comment [facility] Comment on above: Order Comment: Speci men Type: BLOOD SPECIMENOrdering Facility: [facility] Address: [address] [place] [address] Result Comment: Mens trual Cycle Progesterone Reference Ranges: Follicular: <1.0 ng/mL Ovulation: <12.1 ng/mL Luteal: 1.8 to 23.9 ng/mL. Progesterone Reference Ranges vary by gestational period: First Trimester: 11.0 to 44.3 ng/mL Second Trimester: 25.4 to 83.3 ng/mL Third Trimester: 58.7 to 214 ng/mL Post menopausal Progesterone: <0.5 ng/mL Reference: 1. Progesterone (Progesterone III) [package insert V 1.0 Barbadian]. [employer], [place], [place]. December 2014. Performed By: #### 2 839-9 ####[facility] [id number] [place] [address] [place] Reagin and Treponema pallidu m IgG and IgM [Interp]on 09-13-2023 T. pallidum IgG+IgM IA Ql (S) Non-Reactive Normal Nonreactive [facility] Comment on above: Order Comment: Speci men Type: BLOOD SPECIMENOrdering Facility: [facility] Address: [address] [place] [address] Performed By: #### 3 1201-7, 80566-5, 5195-3 ####[facility] [id number] [place] [address] [place] Reagin+T pallidum IgG+IgM Se rPl-Impon 09-13-2023 Reagin and Treponema pallidum IgG and IgM [Interp] Cannot exclude recent Treponemal infection if specimen collected within 7-10 days after appearance of suspect lesions or 2-3 weeks after an exposure. Clinical correlation is required. Normal [facility] Comment on above: Order Comment: Speci men Type: BLOOD SPECIMENOrdering Facility: [facility] Address: [address] [place] [address] Performed By: #### 3 1201-7, 41552-5, 5195-3 ####[facility] [id number] [place] [id number] [place] Alexandra 09-08-2023 CNPN Telephone (REIBD) EVELYNLISSA ([id number]) 1995 F Date Time Provider Department 09/08/23 [...] Status:Closed by ORTEGA MORRISSEY on 09/09/23 Normal [facility] B-HCG SerPl-aCncon HCG.beta subunit Qn m[IU]/mL Normal <5.0 [facility] Comment on above: Order Comment: Speci men Type: BLOOD SPECIMENOrdering Facility: [facility] Address: [address] [place] [address] Result Comment: Rich ball Performed By: #### 2 1198-7 ####[facility] [id number] [address] [id number] [id number] [place] CNPNon 09-02-2023 CNPN Telephone (REIBD) LISSA RIVAS ([id number]) 1995 F Date Time Provider Department 09/02/23 [...] Diagnosis:Secondary amenorrhea [N91.1] Order(s):PROGESTERONE [SQPROG] Order #: [id number] FUTURE HCG QUANTITATIVE [SQHCGQT] Order #: [id number] FUTURE Prescriptions as of 09/02/2023 - letrozole [...] Status:Closed by ORTEGA MORRISSEY on 09/02/23 Normal [facility] Progest SerPl-mCncon 024 Progesterone [Mass/Vol] 0.2 ng/mL Normal See comment [facility] Comment on above: Order Comment: Speci men Type: BLOOD SPECIMENOrdering Facility: [facility] Address: [address] [place] [address] Result Comment: Mens trual Cycle Progesterone Reference Ranges: Follicular: <1.0 ng/mL Ovulation: <12.1 ng/mL Luteal: 1.8 to 23.9 ng/mL. Progesterone Reference Ranges vary by gestational period: First Trimester: 11.0 to 44.3 ng/mL Second Trimester: 25.4 to 83.3 ng/mL Third Trimester: 58.7 to 214 ng/mL Post menopausal Progesterone: <0.5 ng/mL Reference: 1. Progesterone (Progesterone III) [package insert V 1.0 [place]adian]. [employer], [place], [place]. December 2014. Performed By: #### 2 839-9 ####[facility] [id number] [address] [place] 08-19-2023 HNO ID: [id number] Author: FEDE HAIRSTON MD Service: ? Author [...] Comments: None Kim Khan MD 08/19/2023 Normal [facility] CONSULT PROGon 08-19-2023 CONSULT PROG HNO ID: [id number] Author: FEDE HAIRSTON MD Service: ? 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 Normal [facility] CNOVon 08-17-2023 CNOV Office Visit (OTMNCA ) LISSA RIVAS ([id number]) 1995 F Date Time Provider Department 08/17/23 11:00 AM МАРИЯ LABOY OTMNTACO During your visit today, we recorded the [...] while trying for , who presents to [facility]. Her genetic testing indicates she has [...] no masses (more content not included)... Normal [facility] CNOV Office Visit (ENDOMN ) LISSA RIVAS ([id number]) 1995 F Date Time Provider Department 08/17/23 10:00 AM MIRTA GALLAGHER ENDOMN During your visit today, we recorded the following information about you: Pulse Blood pressure Weight 73/minute 129/79 104.1 kg Latosha Wesley MA 08/17/2023 9:53 AM Signed Thank you for choosing the [facility] Department of Endocrinology, Diabetes and Metabolism. Did you know that you need to call 48 hours in advance of your scheduled visit, if you are unable to make your appointment? The Endocrinology and Metabolism Maybee thanks you for your commitment, because patients not showing to their appointment results in a lost opportunity for patients to receive world class health care at the [facility]. To Cancel an appointment, please choose one of the following: - Call the Appointment Call Center at [phone] - From [facility], Go to Appointments - Cancel Appts If cancelling, consider your need to reschedule to prevent further delays in your care. To Schedule an appointment, please choose one of the following: - Call the Appointment Call Center at [phone] - From [facility], Go to Appointments - Request an Appt [...] by neurodegenerat (more content not included)... Normal [facility] No Panel Informationon 08-16 Interpretation and review of laboratory results Normal [facility] T4 FREE/FREE THYROXINEon Free T4 [Mass/Vol] 1.1 ng/dL 0.9 - 1.7 ng/dL C [facility] T4 Free SerPl-mCncon 024 Free T4 [Mass/Vol] 1.1 ng/dL Normal 0.9-1.7 [facility] Comment on above: Order Comment: Speci men Type: BLOOD SPECIMENOrdering Facility: [facility] Address: [address] [place] [address] Performed By: #### 3 016-3, 3024-7 ####[facility] [id number] [place] [id number] [place] THYROID PEROXIDASE ANTIBODYo n 08-17-2023 Interpretation and review of laboratory results Normal [facility] TPO Ab Qn 3.3 [IU]/mL NINF [facility] Comment on above: Thyroid Peroxidase A ntibody test is used as an aid in diagnosis of autoimmune thyroid disease. Clinical correlation is required. [facility] TPO Ab Qn 3.3 [IU]/mL Normal <5.6 [facility] Comment on above: Order Comment: Speci men Type: BLOOD SPECIMENOrdering Facility: [facility] Address: [address] [place] [address] Result Comment: Thyr oid Peroxidase Antibody test is used as an aid in diagnosis of autoimmune thyroid disease. Clinical correlation is required. Performed By: #### M ICRO ####[facility] [id number] [place] [address] [place] THYROID STIMULATING HORMONEo n 08-17-2023 TSH Qn 2.690 m[IU]/L [facility] Comment on above: If the patient [...] Gerber, et al. 2017 Guidelines of the [place] Thyroid Association for the Diagnosis and Management of Thyroid Disease during and the . Thyroid, 2017:27:3:315-389. TSH SerPl-aCncon 08-17-2023 TSH Qn 2.690 m[IU]/L Normal 0.270-4.200 [facility] Comment on above: Order Comment: Speci men Type: BLOOD SPECIMENOrdering Facility: [facility] Address: [address] [place] [address] Result Comment: If t he patient is , TSH reference range varies by gestational period: First Trimester (weeks 9-12): 0.180-2.990 mIU/L Second Trimester: 0.110-3.980 mIU/L Third Trimester: 0.480-4.710 mIU/L Hang Ribeiro et al. A Practical Approach for the Verifications and Determination of Site- and Trimester-Specific Reference Intervals for Thyroid Function tests in . Thyroid, 2019:29:3:412-420. Samuel Gerber, et al. 2017 Guidelines of the [place] Thyroid Association for the Diagnosis and Management of Thyroid Disease during and the . Thyroid, 2017:27:3:315-389. Performed By: #### 3 016-3, 3024-7 ####[facility] [id number] [address] [place] CNNURSEon 07-29-2023 CNNURSE Nurse Visit (REIAV) LISSA RIVAS ([id number]) 1995 F Date Time Provider Department 07/29/23 12:45 PM NURSE GAYATHRI [facility] REJ REIAV During your visit today, we recorded the following information about you: Allergies As of Date: 07/29/2023 (No Known Allergies) Date Reviewed: 06/23/2023 Reviewed by: Radha Hawkins, RT(R) - Fully Assessed Reason for Visit: Nurse Visit [792] Primary Visit Diagnosis:Encounter for fertility testing [Z31.41] Other Visit Diagnosis:Pre-procedu re lab exam [Z01.812] Order(s):HCG QUAL UR B/O [[id number]] Order #: [id number] Prescriptions as of 07/29/2023 - letrozole (FEMARA) [...] Status:Closed by CRUZ PRESCOTT on 07/29/23 Normal [facility] HCG QUAL UR B/Oon 07-29-2023 Interpretation and review of laboratory results Normal [facility] status Negative neg - pos [facility] Quality Check Yes yes/no [facility] XR HYSTEROSALPINGOGRAMon XR HYSTEROSALPINGOGRAM * * *Final [...] or left fallopian tube. IMPRESSION: Normal hysterosalpingogram. 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 Print Production Manager (topogram) images: No additional findings. IMPRESSION: 1. Hepatic steatosis. 2. No mass, lymphadenopathy or splenomegaly in the abdomen. [employer] D[employer] Operator: PSCAdan Transcribe Date/Time: Jun 23 2023 11:05A Dictated by : NICOLAS NICHOLSON MD This examination was interpreted and the report reviewed and electronically signed by: NICOLAS NICHOLSON MD on Jun 23 2023 11:28AM EST [id number] Normal [facility] CT CHEST W IVCONon CT CHEST W IVCON * * *Final Report* * * DATE OF EXAM: Jun 23 2023 9:14AM [facility] 0539 - CT CHEST W IVCON / [...] wall is unremarkable. Upper abdomen: Dictated separately. Print Production Manager (topogram) images: No additional findings. IMPRESSION: No CT evidence of acute abnormality. Unremarkable chest CT, no findings of enlarged lymph nodes in the thorax. Grain Drier Operator: PSCB Transcribe Date/Time: Jun 23 2023 9:13A Dictated by : JANI PACHECO MD This examination was interpreted and the report reviewed and electronically signed by: JANI PACHECO MD on Jun 23 2023 9:16AM EST [id number] Normal [facility] CT NECK SOFT TISSUE W IVCONo n 06-23-2023 CT NECK SOFT TISSUE W IVCON * * *Final Report* * * DATE OF EXAM: Jun 23 2023 9:14AM [facility] 0013 - CT NECK SOFT TISSUE W [...] for mass or adenopathy in the neck. Grain Drier Operator[facility] Transcribe Date/Time: Jun 23 2023 11:23A Dictated by : SALVADOR GAINES MD This examination was interpreted and the report reviewed and electronically signed by: SALVADOR GAINES MD on Jun 23 2023 11:37AM EST [id number] Normal [facility] METANEPHRINES, FREE PLASMAon 06-17-2023 METANEPHRINE, PLASMA 37 pg/mL Normal 12-67 [facility] Comment on above: Order Comment: Speci men Type: BLOOD SPECIMENOrdering Facility: [facility] Address: [address] [place] [address] Result Comment: Refe rence Ranges: Hypertensive adult > or = 18 yrs old: 12-72 pg/mL Normotensive adult > or = 18 yrs old: 12-67 pg/mL Normotensive children < 18 yrs old: 10-95 pg/mL Performed By: #### P METAN ####[facility] [id number] [address] [place] NORMETANEPHRINE, PLASMA 67 pg/mL Normal 18-101 C [facility] Comment on above: Order Comment: Speci men Type: BLOOD SPECIMENOrdering Facility: [facility] Address: [address] [place] [address] Result Comment: Refe rence Ranges: Hypertensive adult > or = 18 yrs old: 24-145 pg/mL Normotensive adult > or = 18 yrs old: 18-101 pg/mL Normotensive children < 18 yrs old: 22-83 pg/mL Methyldopa may cause false elevation of normetanephrine levels in this assay. If patient is on methyldopa, interpret results with caution. Performed By: #### P METAN ####[facility] [id number] [address] [place] Alexandra 06-16-2023 LAURA Telephone (VAISHNAVI) LISSA RIVAS ([id number]) 1995 F Date Time Provider Department 06/16/23 [...] Мария Laboy. Patient will be updated via CleverSet when orders are placed for imaging. 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] Other Visit Diagnoses:Localized enlarged lymph nodes [R59.0] Intra-abdominal and pelvic swelling, mass and lump, unspecified site [R19.00] Order(s):METANEPHRINE S, FREE PLASMA [SQPMETAN] Order #: [id number] FUTURE CT NECK SOFT TISSUE W IVCON [[id number]] Order #: [id number] FUTURE iv contrast (will be provided with [...] 1 EachRfl: 0 CT CHEST W IVCON [[id number]] Order #: [id number] FUTURE CT ABDOMEN W IVCON [[id number]] Order #: [id number] FUTURE Prescriptions as of 06/16/2023 - iv [...] Encounter Status:Closed by FINA LIZAMA on 06/16/23 [facility] Alexandra 06-10-2023 CNPN Telephone ([facility]) EVELYNLISSA ([id number]) 1995 F Date Time Provider Department 06/10/23 ELSA PUENTES During your visit today, we recorded the following information about you: Elsa Puentes LGC 06/14/2023 1:38 PM Addendum Patient name and was confirmed at initiation of discussion. Lissa Rivas's Integrated BRACAnalysis with [employer] through Friday was positive for a pathogenic variant in [...] population without disease (benign polymorphism). Please see CleverSet message for further discussion. CHRISTIE Magdaleno Licensed, [...] for children. Elsa (more content not included)... [facility]23 [facility] LISSA RIVAS ([id number]) 1995 F Date Time Provider Department 05/25/23 FEDE HAIRSTON During your visit today, we recorded the following information about you: Ayanna Wise 05/25/2023 9:59 AM Signed Valentin in [facility] pharmacy. Please follow up with patient. Randee [...] Encounter Status:Closed by ORTEGA MORRISSEY on 05/25/23 [facility] SEND OUT TST [address] [facility] Comment on above: Order Comment: Speci men Type: BLOOD SPECIMENOrdering Facility: [facility] Address: [address] [place] [address] Performed By: #### M ISC1 ####NON-INTERFACED REF LABSCLIA SEE SCANNED RESULTS TEST 1 Integrated BRACAnalysis with [employer] [facility] Comment on above: Order Comment: Speci men Type: BLOOD SPECIMENOrdering Facility: [facility] Address: [address] [place] [address] Performed By: #### M ISC1 ####NON-INTERFACED REF LABSCLIA SEE SCANNED RESULTS TEST RESULTS 1 View results in Scanned Documents link when available. Normal [facility] Comment on above: Order Comment: Speci men Type: BLOOD SPECIMENOrdering Facility: [facility] Address: [address] [place] [address] Performed By: #### M ISC1 ####NON-INTERFACED REF LABSCLIA SEE SCANNED RESULTS Alexandra 04-23-2023 [facility] Telephone (ROCÍO) LISSA RIVAS ([id number]) 1995 F Date Time Provider Department 04/23/23 [...] NTHL1, PALB2, PDGFRA, PMS2, POLD1, POLE, POT1, BTGNZ5J, PTCH1, PTEN, RAD51C, RAD51D, RB1, RET, SDHA, SDHAF2, SDHB, SDHC, SDHD, SMAD4, SMARCA4, SMARCB1, SMARCE1, STK11, SUFU, LERH381, TP53, TSC1, TSC2, and VHL The Multi-Cancer panel looks at genes associated with cancers of the breast, gynecologic tract (ovarian, uterine/endometrial), gastrointestinal system (colorectal, gastric, pancreatic), endocrine glands (thyroid, parathyroid, pituitary, adrenal glands), genitourinary tract (renal/urinary tract, prostate), skin (melanoma, basal cell carcinoma), and brain/nervous system. AM CHECKING WITH JAYCE FIRST ABOUT VARIANT BEFORE PROCEEDING, WILL CONTACT PATIENT WHEN READY TO MOVE FORWARD. Elsa Puentes MS, [facility] [place], Certified Genetic Counselor Elsa Puentes LGC 05/17/2023 11:29 AM Signed Spoke to Thao again, confirmed name/. Reviewed information regarding genetic testing. After our discussion, patient provided informed consent for SELF PAY Integrated BRACAnalysis with [employer] and SDHA single site mutation analysis. Order placed today. Jayce said the following about the SDHA variant: This SDHA variant would be outside of our reportable range, as we unfortunately do not offer CNV analysis of SDHA at this time. Please let me know if you have any additional questions. Discussed with patient they they cannot detect the familial mutation. Reviewed testing at [facility] as the best option, since we know that they detected this particular mutation in her mother. The patient was offered SDHA single site mutation analysis through Friday or self pay Integrated BRACAnalysis with [employer] and SDHA single site mutation analysis through Friday. After considering the risks, benefits, and limitations, the patient chose to pursue and provided informed consent for the following testing: SELF PAY Integrated BRACAnalysis with [employer] and SDHA single site mutation analysis through [facility]. The myRisk panel includes APC, MICHAEL, AXIN2, BAP1, BARD1, BMPR1A, BRCA1, BRCA2, BRIP1, CDH1, CDK4, CDKN2A, CHEK2, CTNNA1, EGFR, EPCAM, FH, FLCN, GREM1, HOXB13, MEN1, MET, MITF, MLH1, MSH2, MSH3, MSH6, MUTYH, NTHL1, PALB2, PMS2, POLD1, POLE, PTEN, RAD51C, RAD51D, RET, SDHA, SDHB, SDHC, SDHD, SMAD4, STK11, TERT, TP53, TSC1, TSC2, and VHL Juan [facility]abl[facility] looks at genes related to inherited breast, ovarian, pancreatic, prostate, colon, uterine, kidney, lung, endocrine, and stomach cancer, as well as inherited colon polyp and melanoma syndromes. We discussed that an NGS panel can rarely result in an unexpected finding which may or may not be related to the presenting phenotype. We discussed that [facility] may contact the patient by text or phone call regarding billing. The patient should watch for this communication and respond promptly. The patient should contact [facility] directly with any billing questions (ph. [phone]). Elsa Puentes MS, [facility] [place], Certified Genetic Counselor Allergies As of Date: 04/23/2023 (No Known Allergies) Date Reviewed: 01/04/2023 Reviewed by: Cruz Prescott Ma - Fully Assessed Reason for Visit: Follow Up [171] Primary Visit Diagnosis:Family history of cancer [Z80.9] Other Visit Diagnosis:Family history of gene mutation [Z84.81] Order(s[place] [place] [SQMISC1] Order #: [id number] FUTURE Prescriptions as of 05/17/2023 - letrozole [...] 04/23/2023 No (more content not included)... Normal [facility] 024 Progesterone [Mass/Vol] 4.8 ng/mL Normal See comment [facility] Comment on above: Order Comment: Speci men Type: BLOOD SPECIMENOrdering Facility: [facility] Address: [address] [place] [address] Result Comment: Mens trual Cycle Progesterone Reference Ranges: Follicular: <1.0 ng/mL Ovulation: <12.1 ng/mL Luteal: 1.8 to 23.9 ng/mL. Progesterone Reference Ranges vary by gestational period: First Trimester: 11.0 to 44.3 ng/mL Second Trimester: 25.4 to 83.3 ng/mL Third Trimester: 58.7 to 214 ng/mL Post menopausal Progesterone: <0.5 ng/mL Reference: 1. Progesterone (Progesterone III) [package insert V 1.0 Barbadian]. [facility], [place], [place]. December 2014. Performed By: #### 2 839-9 ####[facility] [id number] [place] [address] [place] PELVIC US WHIon 02-08-2023 [facility] Vital Signs Date Time Vital Sign Value Performing Clinician Facility 08-16-2024 08:38-0400 Body mass index (BMI) [Ratio] 40.08 kg/m2 Rupal THAYER Work Phone: [facility] 08-16-2024 08:38-0400 Body weight 102.63 kg Rupal THAYER Work Phone: [facility] 08-16-2024 08:38-0400 Diastolic blood pressure 80 mm[Hg] Rupal THAYER Work Phone: [facility] 08-16-2024 08:38-0400 Systolic blood pressure 114 mm[Hg] Rupal THAYER Work Phone: [facility] 07-18-2024 09:20-0400 Body height 160 cm Lito Velazquez MD Work Phone: [facility] 07-18-2024 09:20-0400 Body mass index (BMI) [Ratio] 40.03 kg/m2 Lito Velazquez MD Work Phone: [facility] 07-18-2024 09:20-0400 Body weight 102.51 kg Lito Velazquez MD Work Phone: [facility] 07-18-2024 09:20-0400 Diastolic blood pressure 78 mm[Hg] Lito Velazquez MD Work Phone: [facility] 07-18-2024 09:20-0400 Heart rate 90 /min Lito Velazquez MD Work Phone: [facility] 07-18-2024 09:20-0400 SaO2% (BldA) [Mass fraction] 98 % Lito Velazquez MD Work Phone: [facility] 07-18-2024 09:20-0400 Systolic blood pressure 128 mm[Hg] Lito Velazquez MD Work Phone: [facility] 05-23-2024 16:00-0500 Body height 160 cm Andrew Ferrer DPM Work Phone: [facility] 05-23-2024 16:00-0500 Body mass index (BMI) [Ratio] 38.83 kg/m2 Andrew Ferrer DPM Work Phone: [facility] 05-23-2024 16:00-0500 Body weight 99.43 kg Andrew Ferrer DPM Work Phone: [facility] 03-08-2024 10:25-0500 Body height 160 cm Gabriel Roof DO Work Phone: [facility] 03-08-2024 10:25-0500 Body mass index (BMI) [Ratio] 40.03 kg/m2 Gabriel Roof DO Work Phone: [facility] 03-08-2024 10:25-0500 Body temperature 97.39 [degF] Gabriel Roof DO Work Phone: [facility] 03-08-2024 10:25-0500 Body weight 102.51 kg Gabriel Roof DO Work Phone: [facility] 03-08-2024 10:25-0500 Diastolic blood pressure 90 mm[Hg] Gabriel Roof DO Work Phone: [facility] 03-08-2024 10:25-0500 Systolic blood pressure 128 mm[Hg] Gabriel Roof DO Work Phone: [facility] 02-15-2024 15:12-0500 Body height 160 cm Robles Goldsmith DO Work Phone: [facility] 02-15-2024 15:12-0500 Body mass index (BMI) [Ratio] 38.26 kg/m2 Robles Goldsmith DO Work Phone: [facility] 02-15-2024 15:12-0500 Body weight 97.98 kg Robles Goldsmith DO Work Phone: [facility] 02-15-2024 15:12-0500 Diastolic blood pressure 84 mm[Hg] Robles Goldsmith DO Work Phone: [facility] 02-15-2024 15:12-0500 Systolic blood pressure 136 mm[Hg] Robles Goldsmith DO Work Phone: [facility] 08-17-2023 10:02-0400 Body mass index (BMI) [Ratio] 40.65 kg/m2 Mirta Gallagher MD Work Phone: [facility] 08-17-2023 10:02-0400 Body weight 104.1 kg Mirta Gallagher MD Work Phone: [facility] 08-17-2023 10:02-0400 Diastolic blood pressure 79 mm[Hg] Mirta Gallagher MD Work Phone: [facility] 08-17-2023 10:02-0400 Heart rate 73 /min Mirta Gallagher MD Work Phone: [facility] 08-17-2023 10:02-0400 Systolic blood pressure 129 mm[Hg] Mirta Gallagher MD Work Phone: [facility] 06-26-2022 19:10-0400 Body height 157.48 cm Josefina Kay Other [employer] Other 06-26-2022 19:10-0400 Body mass index (BMI) [Ratio] 40.64 kg/m2 Josefina Kay Other [employer] Other 06-26-2022 19:10-0400 Body weight 100.79 kg Josefina Kay Other [employer] Other 06-26-2022 19:10-0400 Diastolic blood pressure 87 mm[Hg] Josefina Kay Other [employer] Other 06-26-2022 19:10-0400 Respiratory rate 18 /min Josefina Kay Other [employer] Other 06-26-2022 19:10-0400 SaO2% (BldA) [Mass fraction] 98 % Josefina Kay Other [employer] Other 06-26-2022 19:10-0400 Systolic blood pressure 132 mm[Hg] Josefina Kay Other [employer] Other Encounters Encounter Date Encounter Type Care Provider Facility Start: 08-24-2024 End: 08-24-2024 ambulatory Lito Velazquez MD Work Phone: [facility] Work Phone: Start: 08-24-2024 End: 08-24-2024 Patient encounter procedure Lito Velazquez MD Work Phone: [facility] Work Phone: Start: 08-23-2024 End: 08-23-2024 Clinisync Result Encounter Generic External Data Provider [facility] External Department Unsolicited Start: 08-23-2024 End: 08-23-2024 Clinisync Result Encounter Generic External Data Provider [facility] External Department Unsolicited Start: 08-16-2024 End: 08-16-2024 Bamboo flowsheet Rupal THAYER Work Phone: [facility] Start: 08-16-2024 End: 08-16-2024 Bamboo flowsheet Rupal THAYER Work Phone: [facility] Start: 08-16-2024 End: 08-16-2024 flow sheet Rupal THAYER Work Phone: [facility] Comment on above: Second trimester pre gnancy; 26 weeks gestation of Start: 08-16-2024 End: 08-16-2024 ambulatory RUPAL LEONE Not Available Start: 08-07-2024 End: 08-07-2024 Clinisync Result Encounter Generic External Data Provider [facility] External Department Unsolicited Start: 08-07-2024 End: 08-07-2024 Clinisync Result Encounter Generic External Data Provider [facility] External Department Unsolicited Start: 07-18-2024 End: 07-18-2024 Patient encounter procedure Lito Velazquez MD Work Phone: [facility] Work Phone: Start: 07-18-2024 End: 07-18-2024 Periodic preventive med est patient 18-39 yrs Lito Velazquez MD Work Phone: [facility] Comment on above: Annual physical exam (Primary Dx); Hepatic steatosis; Monoallelic mutation of SDHA gene; Polycystic ovaries; Vitamin D deficiency; Palpitations; Murmur Start: 07-18-2024 End: 07-18-2024 ambulatory LITO VELAZQUEZ Not Available Start: 07-17-2024 End: 07-17-2024 Bamboo flowsheet Saravanan Zita DO Work Phone: [facility] Start: 07-17-2024 End: 07-17-2024 Bamboo flowsheet Saravanan Zita DO Work Phone: [facility] Start: 07-17-2024 End: 07-17-2024 ambulatory SARAVANAN ZITA Not Available Start: 07-17-2024 End: 07-17-2024 flow sheet Saravanan Zita DO Work Phone: [facility] Comment on above: Diabetes mellitus sc [...] 30 minutes Andrew Ferrer DPM Work Phone: [facility] Comment on above: Onychomycosis (Prima ry [...] End: 04-04-2024 Patient encounter procedure Ortega Morrissey APRN.CNP Work Phone: [facility] Comment on above: Progesterone Questio n Start: 2024 End: 2024 Nursing evaluation of patient and report [facility] Rej Work Phone: [facility] Comment on above: Supervision of pregn thor with history of infertility, first trimester Start: 2024 End: 04-04-2024 ambulatory Ortega Morrissey APRN.[employer] Work Phone: [facility] Start: 03-27-2024 End: 03-27-2024 flow sheet [facility] Nurse [facility] Comment on above: GA: 6w1d Start: 03-27-2024 End: 03-27-2024 ambulatory SARAVANAN ZITA Not Available Start: 03-17-2024 End: 03-17-2024 ambulatory ORTEGA MORRISSEY Facility:[facility] Start: 03-17-2024 End: 03-17-2024 Patient encounter procedure Ortega Morrissey APRJEANA Work Phone: [facility] Comment on above: Supervision of pregn thor with history of infertility, first trimester (Primary Dx) Start: 03-17-2024 End: 03-17-2024 Telemedicine consultation with patient Ortega Morrissey APRJEANA Work Phone: [facility] Start: 03-16-2024 End: 03-16-2024 Orders Only Madeleine Orta PA-C Work Phone: [facility] Comment on above: Encounter for pregna ncy test, result positive (Primary Dx) Start: 03-15-2024 End: 03-15-2024 ambulatory ORTEGA MORRISSEY Facility:[facility] Start: 03-13-2024 End: 03-13-2024 ambulatory ORTEGA REYESMONET Facility:[facility] Start: 03-13-2024 End: 03-13-2024 Telephone encounter Fede Hairston MD Work Phone: [facility] Comment on above: +hpt today/lmp 02/12 skipped treatment this month Start: 03-10-2024 End: 03-10-2024 ambulatory MIRTA GALLAGHER Facility:[facility] Start: 03-08-2024 End: 03-08-2024 Office outpatient new 45 minutes Gabriel R Roof DO Work Phone: [facility] Comment on above: Otalgia of both ears (Primary Dx); Temporomandibular joint disorder; Chronic allergic rhinitis; Postnasal drip Start: 03-08-2024 End: 03-08-2024 ambulatory [facility] Start: 02-28-2024 End: 02-28-2024 Telephone encounter Fede Hairston MD Work Phone: [facility] Comment on above: ortega cueva is not el ared for us should she still have it do Start: 02-23-2024 End: 02-25-2024 E-mail encounter from caregiver Ortega Morrissey APRN.JORDAN Work Phone: [facility] Start: 02-23-2024 End: 02-25-2024 Patient encounter procedure Ortega Morrissey APRNDAVID Work Phone: [facility] Comment on above: Next steps Start: 02-23-2024 End: 02-23-2024 ambulatory FEDE HAIRSTON Facility:[facility] Start: 02-23-2024 End: 02-23-2024 Nursing evaluation of patient and report Nurse [facility] Re[facility] Comment on above: Female infertility Start: 02-21-2024 End: 02-21-2024 Telephone encounter Fede Hairston MD Work Phone: [facility] Comment on above: needs [facility] Start: 02-17-2024 End: 02-17-2024 ambulatory FEDE HAIRSTON Facility:[facility] Start: 02-17-2024 End: 02-17-2024 Office outpatient visit [...] 01-14-2024 End: 01-14-2024 Telephone encounter Ortega Morrissey APRN.[employer] Work Phone: [facility] Comment on above: iui plan , cd1 01/12 Start: 01-14-2024 End: 01-17-2024 ambulatory MIRTA GALLAGHER Facility:[facility] Start: 12-31-2023 End: 12-31-2023 ambulatory ORTEGAJAMIE MORRISSEY Facility:[facility] Start: 12-31-2023 End: 12-31-2023 Patient encounter procedure Ortega Morrissey APRN.CNP Work Phone: [facility] Comment on above: Encounter for artifi cial insemination (Primary Dx) Start: 12-21-2023 End: 12-21-2023 ambulatory ORTEGA MORRISSEY Facility:[facility] Start: 12-21-2023 End: 12-21-2023 Nursing evaluation of patient and report Fede Hairston MD Work Phone: [facility] Comment on above: Female infertility Start: 12-13-2023 End: 12-13-2023 Telephone encounter Fede Hairston MD Work Phone: [facility] Comment on above: LMP 12/12/23/ set up monitored cycle; Patient Update Start: 11-28-2023 End: 11-28-2023 ambulatory DESHAWN RIOJAS Facility:[facility] Start: 11-28-2023 End: 11-28-2023 Patient encounter procedure Deshawn Riojas MD Work Phone: [facility] Comment on above: Female infertility ( Primary Dx) Start: 11-23-2023 End: 11-23-2023 ambulatory Ortega Morrissey APRN.CNP Work Phone: [facility] Start: 11-23-2023 End: 11-23-2023 Patient encounter procedure Ortega Morrissey APRN.[employer] Work Phone: [facility] Comment on above: IUI Round 2 Start: 11-22-2023 End: 11-22-2023 ambulatory [facility] Facility:[facility] Start: 11-22-2023 End: 11-22-2023 Patient encounter procedure Ortega Morrissey APRN.[employer] Work Phone: [facility] Comment on above: Procreation manageme nt investigation and testing (Primary Dx) Start: 11-22-2023 End: 11-22-2023 Telemedicine consultation with patient Ortega Morrissey HELEN Work Phone: [facility] Start: 11-22-2023 End: 11-22-2023 ambulatory [facility] Facility:[facility] Start: 11-22-2023 End: 11-22-2023 ambulatory [facility] Facility:[facility] Start: 11-22-2023 End: 11-22-2023 Nursing evaluation of patient and report Nurse [facility] Comment on above: Female infertility Start: 11-18-2023 End: 11-18-2023 ambulatory Ortega Morrissey APRN.CNP Work Phone: [facility] Start: 11-18-2023 End: 11-18-2023 Patient encounter procedure Ortega Morrissey APRN.[employer] Work Phone: [facility] Comment on above: IUI Medication quest ion Start: 11-12-2023 End: 11-15-2023 Telephone encounter Self [facility] Comment on above: iui 10/25 , cd 1 11/11 Start: 10-26-2023 End: 10-26-2023 ambulatory Ortegajamie Morrissey APRN.CNP Work Phone: [facility] Start: 10-26-2023 End: 10-26-2023 Patient encounter procedure Ortegajamie Morrissey APRN.[employer] Work Phone: [facility] Comment on above: Encounter for artifi cial insemination (Primary Dx) Progesterone Questio n Start: 10-22-2023 End: 10-22-2023 Nursing evaluation of patient and report Nurse [facility] Comment on above: Female infertility Start: 10-22-2023 End: 10-22-2023 ambulatory ORTEGA MORRISSEY Facility:[facility] Start: 10-20-2023 Telephone encounter Self [facility] Comment on above: trigger shot Start: 10-12-2023 Telephone encounter Fede Hairston MD Work Phone: [facility] Comment on above: Ortega bowens today/re us day 11-13 for iui Start: 09-13-2023 End: 09-13-2023 ambulatory FEDE HAIRSTON Facility:[facility] Start: 09-10-2023 End: 09-10-2023 ambulatory ORTEGA MORRISSEY Facility:[facility] Start: 09-10-2023 End: 09-10-2023 Patient encounter procedure Ortega Morrissey APRN.CNM Work Phone: [facility] Comment on above: Screen for sexually transmitted diseases (Primary Dx); Secondary amenorrhea; Female infertility Start: 09-10-2023 End: 09-10-2023 Telemedicine consultation with patient Ortega Reyeskali SHRESTHA Work Phone: [facility] Start: 09-08-2023 Telephone encounter Fede Hairston MD Work Phone: [facility] Comment on above: Patient Question Start: 09-02-2023 End: 09-02-2023 ambulatory FEDE HAIRSTON Facility:[facility] Start: 09-02-2023 Telephone encounter Fede Hairston MD Work Phone: [facility] Comment on above: lmp 07/23 no cycle si nce then Start: 08-19-2023 End: 08-19-2023 ambulatory FEDE HAIRSTON Facility:[facility] Start: 08-19-2023 End: 08-19-2023 Patient encounter procedure Fede Hairston MD Work Phone: [facility] Comment on above: Irregular menstrual cycle (Primary Dx); PCOS (polycystic ovarian syndrome) Start: 08-19-2023 End: 08-19-2023 Telemedicine consultation with patient Fede Hairston MD Work Phone: [facility] Start: 08-17-2023 End: 08-17-2023 ambulatory MIRTA GALLAGHER Facility:[facility] Start: 08-17-2023 End: 08-17-2023 Patient encounter procedure Mirta Gallagher MD Work Phone: Endocrinology Comment on above: Monoallelic mutation of SDHA gene (Primary Dx); Obesity, Class III, BMI 40-49.9 (morbid obesity) (HCC) Monoallelic mutation of SDHA gene (Primary Dx) Start: 08-17-2023 End: 08-17-2023 ambulatory MIRTA GALLAGHER Facility:[facility] Start: 07-29-2023 E-mail encounter fro m caregiver Fede Hairston MD Work Phone: [facility] Start: 07-29-2023 Patient encounter procedure Fede Hairston MD Work Phone: [facility] Comment on above: Instructions for janette eduling SA Start: 07-29-2023 End: 07-29-2023 Subsequent hospital visit by physician [facility] Radiology Gastrointestinal Comment on above: Fertility testing [Z 31.41] Start: 07-29-2023 End: 07-29-2023 ambulatory FEDE HAIRSTON Facility:[facility] Start: 07-29-2023 Encounter for preprocedural laboratory examination MIRTA GALLAGHER [facility] Start: 07-29-2023 End: 07-29-2023 Nursing evaluation of patient and report Nurse Gay[facility] Greta Reproductive Endocrinology Infertility Comment on above: Encounter for fertil ity testing (Primary Dx); Pre-procedure lab exam Start: 07-29-2023 End: 07-29-2023 Patient encounter status Nurse [facility] Greta [facility] Start: 06-23-2023 End: 06-23-2023 ambulatory МАРИЯ LABOY Facility:[facility] Start: 06-17-2023 End: 06-17-2023 ambulatory MIRTA AILEEN Facility:[facility] Start: 06-16-2023 Telephone encounter Fina pérez [facility] Work Phone: [facility] Comment on above: Order Manager - O ther (Hereditary Paraganglioma- Pheochromocytoma Syndrome clinic) Start: 06-10-2023 Telephone encounter Elsa altman [facility] Work Phone: [facility] Comment on above: Results (Genetic) Start: 05-25-2023 Telephone encounter Fede Hairston MD Work Phone: Reproductive Endocrinology Infertility Comment on above: refill letrozol/cycl e to start in next week Start: 05-18-2023 End: 05-18-2023 ambulatory ANNAMARIE WEISS Facility:[facility] Start: 04-23-2023 Telephone encounter Elsa altman [facility] Work Phone: [facility] Comment on above: Follow Up Start: 04-21-2023 End: 04-21-2023 ambulatory FEDE HAIRSTON Facility:[facility] Start: 04-21-2023 End: 04-21-2023 ambulatory Elsa Puentes [facility] Work Phone: [facility] Comment on above: Family history of br east cancer (Primary Dx); Family history of prostate cancer Start: 04-21-2023 End: 04-21-2023 Telemedicine consultation with patient Elsa Puentes [facility] Work Phone: [facility] Start: 04-19-2023 End: 04-19-2023 ambulatory ORTEGA MORRISSEY Facility:[facility] Start: 04-07-2023 End: 04-07-2023 ambulatory Fede Hairston MD Work Phone: Reproductive Endocrinology Infertility Comment on above: PCOS (polycystic ova kwadwo syndrome) (Primary Dx); Fertility testing Start: 04-07-2023 End: 04-07-2023 Telemedicine consultation with patient Fede Hairston MD Work Phone: JULITA WOODS [facility] Start: 02-08-2023 End: 02-08-2023 ambulatory Fede Hairston MD Work Phone: Reproductive Endocrinology Infertility Start: 02-08-2023 End: 02-08-2023 Patient encounter procedure Fede Hairston MD Work Phone: JULITA WOODS [facility] Start: 02-04-2023 Telephone encounter Fede Hairston MD Work Phone: Reproductive Endocrinology Infertility Comment on above: started letrozole Start: 06-26-2022 End: 06-26-2022 ambulatory Josefina Kay Other [employer] Other Start: 06-26-2022 Office outpatient visit [address] [facility] Start: 12-05-2019 Patient encounter procedure [facility] Facility:H1 Procedures Date Procedure Procedure Detail Performing Clinician Start: 08-23-2024 ALL CBC WITH AUTO DIFF Saravanan Ahumada DO Work Phone: Start: 08-16-2024 Urnls dip stick/tablet rgnt non-auto w/o micrscp Rupal THAYER Work Phone: Start: 08-07-2024 US OB INCOMPLETE ANATOMY Generic Externa l Data Provider Start: 07-17-2024 Urnls dip stick/tablet rgnt non-auto [...] 2024 Us preg uterus after 1st trimest / gestation Ortega Morrissey INVENTORY MANAGER.[employer] Work Phone: Start: 02-23-2024 Us pelvic nonobstetric image dcmtn limited/f/u Ortega Mindzora INVENTORY MANAGER.[employer] Work Phone: Start: 02-15-2024 Smr prim src wet mount nfct agt Robles Goldsmith DO Work Phone: Start: 02-15-2024 APTIMA MULTITEST VAGINAL Robles kenny DO Work Phone: Start: 12-21-2023 Us pelvic nonobstetric image dcmtn limited/f/u Ortega Mindzora INVENTORY MANAGER.[employer] Work Phone: Start: 11-22-2023 Us pelvic nonobstetric image dcmtn limited/f/u Ortega Mindzora INVENTORY MANAGER.[employer] Work Phone: Start: 10-22-2023 Us pelvic nonobstetric image dcmtn limited/f/u Ortega Mindzora INVENTORY MANAGER.[employer] Work Phone: Start: 07-29-2023 Urine test visual color cmprsn meths Ortega Reyeszo INVENTORY MANAGER.CNM Work Phone: Start: 02-08-2023 Us pelvic nonobstetric real-time image complete Fede Hairston MD Work Phone: Plan of Treatment Date Care Activity Detail Author Start: 2070 RSV Vaccine (1 - 1-dose 75+ series) RSV Vaccine (1 - 1-dose 75+ series) [facility] Start: 2045 Zoster Vaccines (1 of 2) Zoster Vaccines (1 of 2) [facility] Start: 06-26-2032 DTaP/Tdap/Td Vaccines (7 - Td or Tdap) DTaP/Tdap/Td Vaccines (7 - Td or Tdap) [facility] Start: 06-26-2032 Urine microalbumin profile DTaP,Tdap,Td Vaccine (7 - Td or Tdap) [facility] Start: 07-24-2025 End: 07-24-2025 Patient encounter procedure [facility] Start: 07-18-2025 End: 10-17-2025 CBC W Auto Differential panel - Blood CBC and differential Lab Routine Annual physical exam Expected: 07/18/2025 (Approximate), Expires: 10/17/2025 [facility] Comment on above: Expected: 07/18/2025 (Approximate), Expi res: 10/17/2025 Start: 07-18-2025 End: 10-17-2025 Comprehensive metabolic 2000 panel - Serum or Plasma Comprehensive metabolic panel Lab Routine Annual physical exam Expected: 07/18/2025 (Approximate), Expires: 10/17/2025 [facility] Comment on above: Expected: 07/18/2025 (Approximate), Expi res: 10/17/2025 Start: 07-18-2025 End: 10-17-2025 Lipid 1996 panel - Serum or Plasma Lipid panel Lab Routine Annual physical exam Expected: 07/18/2025 (Approximate), Expires: 10/17/2025 [facility] Comment on above: Expected: 07/18/2025 (Approximate), Expi res: 10/17/2025 Start: 07-18-2025 End: 10-17-2025 Thyrotropin [Units/volume] in Serum or Plasma TSH Lab Routine Annual physical exam Expected: 07/18/2025 (Approximate), Expires: 10/17/2025 [facility] Comment on above: Expected: 07/18/2025 (Approximate), Expi res: 10/17/2025 Start: 11-27-2024 Influenza vaccination Influenza Vaccine (Season Ended) [facility] Start: 09-11-2024 End: 12-11-2024 METANEPHRINES, FREE PLASMA METANEPHRINES, FREE PLASMA Lab Routine Monoallelic mutation of SDHA gene Expected: 09/11/2024, Expires: 12/11/2024 [facility] Work Phone: Comment on above: Expected: 09/11/2024, Expires: Start: 09-11-2024 End: 09-11-2024 ambulatory 09/11/2024 9:00 AM EDT [facility] [address] [place] [address] Mirta Gallagher MD [address] [place], [place] [id number] Monoallelic mutation of SDHA gene Endocrinology Comment on above: Monoallelic mutation of SDHA gene Start: 09-05-2024 End: 09-05-2024 ambulatory 09/05/2024 2:00 PM EDT Results Only [place] [address] [address] [place] [address] SDHA [facility] [place] [address] Comment on above: SDHA Start: 09-05-2024 End: 09-05-2024 Patient encounter procedure 09/05/2024 1:45 PM EDT Office Visit [facility] [address] [place] [address] Мария Laboy MD [address] [place] [address] Monoallelic mutation of SDHA gene [facility] Comment on above: Monoallelic mutation of SDHA gene Start: 08-30-2024 End: 08-30-2024 Patient encounter procedure 08/30/2024 11:20 AM EDT Routine [facility] [address] [id number] Saravanan Ahumada, DO [address] [place] [address] [facility] Start: 08-16-2024 End: 08-16-2024 Patient encounter procedure [facility] Comment on above: Arrived Start: 07-18-2024 End: 10-17-2024 Cardiac event monitor [...] Polycystic ovaries Expected: 07/18/2024 (Approximate), Expires: 10/17/2024 [facility] Comment on above: Expected: 07/18/2024 (Approximate), Expi res: 10/17/2024 Start: 07-18-2024 End: 10-17-2024 US Heart Transthoracic Transthoracic echo (TTE) complete Echocardiography Routine Palpitations Murmur Expected: 07/18/2024 (Approximate), Expires: 10/17/2024 [facility] Comment on above: Expected: 07/18/2024 (Approximate), Expi res: 10/17/2024 Start: 07-18-2024 End: 07-18-2024 Patient encounter procedure 07/18/2024 9:15 AM EDT Office Visit [facility] [address] [place] [address] Lito Velazquez MD [address] [place], [place] [phone] [facility] Start: 07-17-2024 End: 07-17-2025 CBC panel - Blood by Automated count CBC Lab Routine Diabetes mellitus screening Expected: 07/17/2024 (Approximate), Expires: 07/17/2025 [facility] Work Phone: Comment on above: Expected: 07/17/2024 (Approximate), Expi res: 07/17/2025 Start: 07-17-2024 End: 07-17-2025 Measurement of glucose 1 hour after glucose challenge for glucose tolerance test Glucose tolerance, 1 hour Lab Routine Diabetes mellitus screening Expected: 07/17/2024 (Approximate), Expires: 07/17/2025 [facility] Comment on above: Expected: 07/17/2024 (Approximate), Expi res: 07/17/2025 Start: 06-19-2024 End: 06-19-2024 Patient encounter procedure [facility] Start: 05-23-2024 End: 05-23-2024 Patient encounter procedure 05/23/2024 4:00 PM EST Office Visit [facility] [address] [place] [id number] Andrew Ferrer, DPM [address] [place], [place] [phone] [facility] Start: 05-22-2024 End: 07-20-2024 Alpha fetoprotein, maternal Alpha fetoprotein, maternal Lab Routine Second trimester 14 weeks gestation of Expected: 05/22/2024 (Approximate), Expires: 07/20/2024 [facility] Work Phone: Comment on above: [...] PM EST Initial [facility] [address] [phone] Manju Alford, [address] [address] [facility] Start: 04-21-2024 [...] PM EST Ancillary Procedure [facility] [address] [phone] [facility] Start: 2024 End: 2024 Nursing evaluation of patient and report 2024 11:10 AM EST Nurse Visit [facility] [address] [place] [address] ob scan [facility] Comment on above: ob scan Start: 03-30-2024 End: 03-30-2024 Patient encounter procedure 03/30/2024 12:40 PM EST [facility] [address] [place] [address] Cira Garcia V, MD [address] [place] [address] Weight management Endocrinology Comment on above: Weight management Start: 03-27-2024 End: 03-27-2025 Bacteria identified in Urine by Culture Urine culture Microbiology Routine Encounter for supervision of normal first in first trimester Expected: 03/27/2024 (Approximate), Expires: 03/27/2025 [facility] Comment on above: Expected: 03/27/2024 (Approximate), Expi res: 03/27/2025 Start: 03-27-2024 End: 03-27-2025 Blood type and Indirect antibody screen panel - Blood Type and screen Lab Routine Encounter for supervision of normal first in first trimester Expected: 03/27/2024 (Approximate), Expires: 03/27/2025 [facility] Healthcare Comment on above: Expected: 03/27/2024 (Approximate), Expi res: 03/27/2025 Start: 03-27-2024 End: 03-27-2025 CBC W Auto Differential panel - Blood CBC and differential Lab Routine Encounter for supervision of normal first in first trimester Expected: 03/27/2024 (Approximate), Expires: 03/27/2025 [facility] Healthcare Comment on above: Expected: 03/27/2024 (Approximate), Expi res: 03/27/2025 Start: 03-27-2024 End: 03-27-2025 DRUG SCREEN 17 W/CONF, UR DRUG SCREEN 17 W/CONF, UR Lab Routine Encounter for supervision of normal first in first trimester Encounter for drug screening Expected: 03/27/2024 (Approximate), Expires: 03/27/2025 [facility] Healthcare Comment on above: Expected: 03/27/2024 (Approximate), Expi res: 03/27/2025 Start: 03-27-2024 End: 03-27-2025 Hepatitis B virus surface Ag [Presence] in Serum or Plasma by Immunoassay Hepatitis B surface antigen Lab Routine Encounter for supervision of normal first in first trimester Expected: 03/27/2024 (Approximate), Expires: 03/27/2025 [facility] Healthcare Comment on above: Expected: 03/27/2024 [...] first trimester Expected: 03/27/2024 (Approximate), Expires: 03/27/2025 [facility] Comment on above: Expected: 03/27/2024 (Approximate), Expi res: 03/27/2025 Start: 03-27-2024 End: 03-27-2025 Reagin Ab [Presence] in Serum by RPR RPR Lab Routine Encounter for supervision of normal first in first trimester Expected: 03/27/2024 (Approximate), Expires: 03/27/2025 [facility] Comment on above: Expected: 03/27/2024 (Approximate), Expi res: 03/27/2025 Start: 03-27-2024 End: 03-27-2025 Rubella antibody, IgG Rubella antibody, IgG Lab Routine Encounter for supervision of normal first in first trimester Expected: 03/27/2024 (Approximate), Expires: 03/27/2025 [facility] Comment on above: Expected: 03/27/2024 (Approximate), Expi res: 03/27/2025 Start: 03-27-2024 End: 03-27-2025 Urinalysis complete panel - Urine Urinalysis with microscopic Lab Routine Encounter for supervision of normal first in first trimester Expected: 03/27/2024 (Approximate), Expires: 03/27/2025 [facility] Work Phone: Comment on above: Expected: 03/27/2024 (Approximate), Expi res: 03/27/2025 Start: 03-17-2024 End: 03-17-2025 OBSTETRIC ULTRASOUND WHI OBSTETRIC ULTRASOUND WHI Anc Imaging Routine Supervision of with history of infertility, first trimester Expected: 03/17/2024, Expires: 03/17/2025 [facility] Work Phone: Comment on above: Expected: 03/17/2024, Expires: Start: 03-17-2024 End: 03-17-2024 Patient encounter procedure 03/17/2024 2:00 PM EST [facility] [address] [place] [address] Ortega Morrissey APRN.[employer] [address] [place] [address] new preg [facility]roductive Endocrinology Infertility Comment on above: new preg Start: 03-16-2024 End: 06-15-2024 Choriogonadotropin.be ta subunit [Units/volume] in Serum or Plasma HCG QUANTITATIVE Lab Routine Encounter for test, result positive Expected: 03/16/2024, Expires: 06/15/2024 [facility] Work Phone: Comment on above: Expected: 03/16/2024, Expires: Start: 03-15-2024 End: 03-15-2024 Patient encounter procedure 03/15/2024 3:45 PM EST Office Visit [facility] [address] [place] [address] [place] [address] lab [facility] Comment on above: lab Start: 02-28-2024 End: 05-29-2024 Progesterone [Mass/volume] in Serum or Plasma PROGESTERONE Lab Routine Female infertility Expected: 02/28/2024, Expires: 05/29/2024 [facility] Work Phone: Comment on above: Expected: 02/28/2024, Expires: Start: 02-26-2024 End: 02-26-2024 Patient encounter procedure 02/26/2024 6:00 PM EST Office Visit [facility] [address] [place] [address] follicle us -benefit check [facility] Infertility Comment on above: follicle us -benefit check Start: 02-23-2024 End: 02-23-2024 Nursing evaluation of patient and report 02/23/2024 7:00 AM EST Nurse Visit [facility] [address] [place] [address] Nurse Gayathri Hernandes [facility] [address] [place] [address] midcycle Reproductive Endocrinology Infertility Comment on above: midcycle Start: 02-17-2024 End: 02-17-2024 Follow-up encounter 02/17/2024 9:30 AM [facility] [address] [place] [address] Fede Hairston MD [address] [place] [address] follow up Reproductive Endocrinology Infertility Comment on above: follow up Start: 02-15-2024 End: 02-14-2025 FOLLICULAR US WHI FOLLICULAR US WHI Anc Imaging Routine Female infertility Expected: 02/15/2024, Expires: 02/14/2025 [facility] Work Phone: Comment on above: Expected: 02/15/2024, Expires: Start: 01-19-2024 End: 01-19-2024 Patient encounter procedure 01/19/2024 6:00 PM EDT Office Visit [facility] [address] [place] [address] iui-benefit check [facility]ocr[facility]ology Infertility Comment on above: iui-benefit check Start: 12-13-2023 End: 12-12-2024 FOLLICULAR US WHI FOLLICULAR US WHI Anc Imaging Routine Female infertility Expected: 12/13/2023, Expires: 12/12/2024 [facility] Work Phone: Comment on above: Expected: 12/13/2023, Expires: Start: 11-28-2023 Covid-19 Vaccine ( season) Covid-19 Vaccine ( season) [facility] Start: 11-28-2023 Covid-19 Vaccine ( season) Covid-19 Vaccine ( season) [facility] Start: 11-28-2023 Influenza vaccination [facility] Start: 11-22-2023 End: 11-22-2023 Nursing evaluation of patient and report 11/22/2023 7:15 AM EDT Nurse Visit [facility] [address] [place] [address] Greta, Nurse [facility]ri [facility] [address] [place] [address] Follicular scan Reproductive Endocrinology Infertility Comment on above: Follicular scan Start: 11-18-2023 End: 11-18-2023 Patient encounter procedure 11/18/2023 6:00 PM EDT Office Visit [facility] [address] [place] [address] midcycle-benefit check [facility]ocrinology Infertility Comment on above: midcycle-benefit check Start: 11-15-2023 End: 11-14-2024 FOLLICULAR US WHI FOLLICULAR US WHI Anc Imaging Routine Female infertility Expected: 11/15/2023, Expires: 11/14/2024 [facility] Work Phone: Comment on above: Expected: 11/15/2023, Expires: Start: 11-04-2023 End: 11-04-2023 Patient encounter procedure Endocrinology Comment on above: MED WT MGMT Start: 10-22-2023 End: 10-22-2023 Nursing evaluation of patient and report 10/22/2023 7:00 AM EDT Nurse Visit [facility] [address] [place] [address] Greta, Nurse [facility] [address] [place] [address] midcycle Rep[facility]ductive Endocrinology Infertility Comment on above: midcycle Start: 09-19-2023 End: 12-19-2023 Progesterone [Mass/volume] in Serum or Plasma PROGESTERONE Lab Routine Irregular menstrual cycle Expected: 09/19/2023 (Approximate), Expires: 12/19/2023 [facility] Work Phone: Comment on above: Expected: 09/19/2023 (Approximate), Expi res: 12/19/2023 Start: 09-10-2023 End: 09-10-2023 Patient encounter procedure 09/10/2023 3:00 PM EDT [facility] [address] [place] [address] Ortega Morrissey APRN.JASVIR [address] [place] [address] IUI teach [facility]ductive Endocrinology Infertility Comment on above: IUI teach Start: 09-10-2023 End: 12-10-2023 Chlamydia trachomatis+Neisseria gonorrhoeae DNA [Presence] in Unspecified specimen by JANESSA with probe detection GONORRHEA/CHLAMYDIA NAAT Lab Routine Screen for sexually transmitted diseases Expected: 09/10/2023 (Approximate), Expires: 12/10/2023 [facility] Comment on above: Expected: 09/10/2023 (Approximate), Expi res: 12/10/2023 Start: 09-10-2023 End: 12-10-2023 Choriogonadotropin.be ta subunit [Units/volume] in Serum or Plasma HCG QUANTITATIVE Lab Routine Secondary amenorrhea Expected: 09/10/2023, Expires: 12/10/2023 [facility] Comment on above: Expected: 09/10/2023, Expires: 4 Start: 09-10-2023 End: 09-09-2024 FOLLICULAR US WHI FOLLICULAR US I Anc Imaging Routine Female infertility Expected: 09/10/2023, Expires: 09/09/2024 [facility] Comment on above: Expected: 09/10/2023, Expires: 5 Start: 09-10-2023 End: 12-10-2023 Hepatitis B virus surface Ag [Presence] in Serum HEPATITIS B SURFACE ANTIGEN Lab Routine Screen for sexually transmitted diseases Expected: 09/10/2023, Expires: 12/10/2023 [facility] Comment on above: Expected: 09/10/2023, Expires: 4 Start: 09-10-2023 End: 12-10-2023 Hepatitis C virus Ab [Presence] in Serum HEPATITIS C ANTIBODY IA WITH CONFIRMATION Lab Routine Screen for sexually transmitted diseases Expected: 09/10/2023, Expires: 12/10/2023 [facility] Comment on above: Expected: 09/10/2023, Expires: 4 Start: 09-10-2023 End: 12-10-2023 HIV 1+2 Ab [Presence] in Serum or Plasma by Immunoassay HIV 1/2 COMBO WITH REFLEX TO DIFFERENTIATION Lab Routine Screen for sexually transmitted diseases Expected: 09/10/2023, Expires: 12/10/2023 [facility] Comment on above: Expected: 09/10/2023, Expires: Start: 09-10-2023 End: 12-10-2023 Progesterone [Mass/volume] in Serum or Plasma PROGESTERONE Lab Routine Secondary amenorrhea Expected: 09/10/2023, Expires: 12/10/2023 [facility] Work Phone: Comment on above: Expected: 09/10/2023, Expires: 4 Start: 09-10-2023 End: 12-10-2023 SYPHILIS TOTAL W/REFLEX SYPHILIS TOTAL W/REFLEX Lab Routine Screen for sexually transmitted diseases Expected: 09/10/2023, Expires: 12/10/2023 [facility] Comment on above: Expected: 09/10/2023, Expires: Start: 09-02-2023 End: 12-02-2023 Choriogonadotropin.be ta subunit [Units/volume] in Serum or Plasma [facility] Comment on above: Expected: 09/02/2023, Expires: Start: 09-02-2023 End: 12-02-2023 Progesterone [Mass/volume] in Serum or Plasma [facility] Work Phone: Comment on above: Expected: 09/02/2023, Expires: Start: 08-19-2023 End: 08-19-2023 Follow-up encounter 08/19/2023 10:30 AM EDT [facility] [address] [place] [address] Fede Hairston MD [address] [place] [address] follow up / rescheduled ok per [facility]F [facility] Infertility Comment on above: follow up / rescheduled ok per K[facility] Start: 08-17-2023 End: 08-17-2023 Patient encounter procedure 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 Start: 06-16-2023 End: 09-15-2023 METANEPHRINES, FREE PLASMA METANEPHRINES, FREE PLASMA Lab Routine Monoallelic mutation of SDHA gene Expected: 06/16/2023, Expires: 09/15/2023 [facility] Work Phone: Comment on above: Expected: 06/16/2023, Expires: Start: 06-01-2023 Varicella vaccination Varicella Vaccines (2 of 2 - 2-dose childhood series) [facility] Start: 05-17-2023 End: 08-16-2023 MISC SEND OUT TST 1 MISC SEND OUT TST 1 Lab Routine Family history of cancer Family history of gene mutation Expected: 05/17/2023, Expires: 08/16/2023 [facility] Work Phone: Comment on above: Expected: 05/17/2023, Expires: Start: 04-17-2023 End: 07-17-2023 Progesterone [Mass/volume] in Serum or Plasma PROGESTERONE BLD Lab Routine PCOS (polycystic ovarian syndrome) Expected: 04/17/2023 (Approximate), Expires: 07/17/2023 [facility] Work Phone: Comment on above: Expected: 04/17/2023 (Approximate), Expi res: 07/17/2023 Start: 03-29-2023 Behavioral Health Screening Behavioral Health Screening [facility] Start: 03-29-2023 Depression Assessment Depression Assessment [facility] Start: 02-04-2023 End: 05-06-2023 Progesterone [Mass/volume] in Serum or Plasma PROGESTERONE BLD Lab Routine Encounter for fertility testing Expected: 02/04/2023, Expires: 05/06/2023 [facility] Work Phone: Comment on above: Expected: 02/04/2023, Expires: 4 Start: 11-27-2022 Covid-19 Vaccine ( season) Covid-19 Vaccine () [facility] Start: 11-27-2022 Influenza vaccination Influenza Vaccine (#1) [facility] Start: 03-29-2022 Depression Assessment Depression Assessment [facility] Start: 2016 Pap Testing Pap Testing [facility] Start: 2016 Screening for malignant neoplasm [facility] cervix [facility] [facility] Start: 2014 Hepatitis A Vaccines (1 of 2 - Risk 2-dose series) Hepatitis A Vaccines (1 of 2 - Risk 2-dose series) [facility] Start: 2014 Urine microalbumin profile DTaP,Tdap,Td Vaccine (1 - Tdap) [facility] Start: 2013 Anxiety Screening Anxiety Screening [facility] Start: 2013 Depression Screening Depression Screening [facility] Start: 2013 Hepatitis C Screening Hepatitis C Screening [facility] Start: 2013 Hepatitis C screening Hepatitis C Screening [facility] Start: 2013 HIV Screening HIV Screening [facility] Start: 2013 HIV screening HIV Screening [facility] Start: 1995 Covid-19 Vaccine (#1) Covid-19 Vaccine (#1) [facility] Start: 1995 Hepatitis B Vaccine (1 of 3 - 3-dose series) Hepatitis B Vaccine (1 of 3 - 3-dose series) [facility] Start: 1995 HIV screening HIV Screening [facility] Start: 1995 Lipid panel Lipid Panel [facility] Start: 1995 Yearly Adult Physical Yearly Adult Physical [facility] Bacteria identified in Urine by Culture Urine culture Microbiology Routine Missed menses Ordered: 04/21/2024 [facility] Comment on above: Ordered: 04/21/2024 Bacteria identified in Urine by Culture Urine culture Microbiology Routine Urinary tract infection without hematuria, site unspecified Ordered: 05/15/2024 [facility] Work Phone: Comment on above: Ordered: 05/15/2024 End: 05-17-2024 Cath & saline/contrast sonohyster/hysterosal pi XR HYSTEROSALPINGOGRAM Radiology Routine Fertility testing 1 Occurrences starting 04/18/2023 until 05/17/2024 [facility] Work Phone: Comment on above: 1 Occurrences starting 04/18/2023 until 05/17/2024 CBC W Auto Differential panel - Blood CBC and differential Lab Routine Missed menses , unspecified gestational age Ordered: 04/21/2024 [facility] [employer] Comment on above: Ordered: 04/21/2024 End: 03-13-2025 Choriogonadotropin.be ta subunit [Units/volume] in Serum or Plasma HCG QUANTITATIVE Lab Routine examination or test, unconfirmed Daily for 2 Occurrences starting 03/13/2024 until 03/13/2025 [facility] Work Phone: Comment on above: Daily for 2 Occurrences starting 024 until 03/13/2025 Choriogonadotropin.b e ta subunit [Units/volume] in Serum or Plasma HCG QUANTITATIVE Lab Routine examination or test, unconfirmed 03/13/2024 3:37 PM [facility] End: 07-15-2024 CT Abdomen W contrast IV CT ABDOMEN W IVCON Radiology Routine Intra-abdominal and pelvic swelling, mass and lump, unspecified site 1 Occurrences starting 06/16/2023 until 07/15/2024 [facility] Work Phone: Comment on above: 1 Occurrences starting 06/16/2023 until 07/15/2024 End: 07-15-2024 CT Chest W contrast IV CT CHEST W IVCON Radiology Routine Localized enlarged lymph nodes 1 Occurrences starting 06/16/2023 until 07/15/2024 [facility] Work Phone: Comment on above: 1 Occurrences starting 06/16/2023 until 07/15/2024 End: 07-15-2024 CT Neck W contrast IV CT NECK SOFT TISSUE W IVCON Radiology Routine Localized enlarged lymph nodes 1 Occurrences starting 06/16/2023 until 07/15/2024 [facility] Work Phone: Comment on above: 1 Occurrences starting 06/16/2023 until 07/15/2024 Hemoglobin A1c/Hemoglobin.total in Blood Hemoglobin A1c Lab Routine Missed menses , unspecified gestational age Ordered: 04/21/2024 [facility] [employer] Comment on above: Ordered: 04/21/2024 Hepatitis B virus surface Ag [Presence] in Serum or Plasma by Immunoassay Hepatitis B surface antigen Lab Routine Missed menses , unspecified gestational age Ordered: 04/21/2024 [facility] Comment on above: Ordered: 04/21/2024 Hepatitis C virus Ab [Presence] in Serum or Plasma by Immunoassay Hepatitis C antibody Lab Routine Missed menses , unspecified gestational age Ordered: 04/21/2024 [facility] Comment on above: Ordered: 04/21/2024 HIV-1/HIV-2 antigen/antibody combination immunoassay HIV-1 and HIV-2 antibodies Lab Routine Missed menses , unspecified gestational age Ordered: 04/21/2024 [facility] Comment on above: Ordered: 04/21/2024 IGP,rfxAptima HPV all,16/18,45 IGP,rfxAptima HPV all,16/18,45 Pathology and Cytology Routine Screening for malignant neoplasm of cervix Ordered: 02/15/2024 [facility] Work Phone: Comment on above: Ordered: 02/15/2024 Reagin Ab [Presence] in Serum by RPR RPR Lab Routine Missed menses , unspecified gestational age Ordered: 04/21/2024 [facility] Comment on above: Ordered: 04/21/2024 RF Uterus and Fallopian tubes Views W contrast IU XR HYSTEROSALPINGOGRAM Radiology Routine Fertility testing 07/29/2023 2:03 PM EDT [facility] Work Phone: Rubella antibody, IgG Rubella an tibody, IgG Lab Routine Missed menses , unspecified gestational age Ordered: 04/21/2024 [facility] Comment on above: Ordered: 04/21/2024 US Pelvis transvaginal US OB transvaginal Imaging Routine Missed menses 04/21/2024 8:47 AM EST [facility] Immunizations Immunization Date Immunization Notes Care Provider Fa cility 05-04-2023 measles, mumps and rubella virus vaccine Robles Goldsmith DO Work Phone: [facility] 06-26-2022 tetanus toxoid, reduced diphtheria toxoid, and acellular pertussis vaccine, adsorbed Josefina Eliza Other [employer] Other 08-12-2015 Human Papillomavirus 9-valent vaccine Robles Goldsmith DO Work Phone: [facility] 04-10-2015 Human Papillomavirus 9-valent vaccine Robles Goldsmith DO Work Phone: [facility] 01-30-2015 influenza, seasonal, injectable, preservative free Robles Goldsmith DO Work Phone: [facility] 01-30-2015 influenza virus vaccine, unspecified formulation Fede Hairston MD Work Phone: [facility] 12-05-2014 Human Papillomavirus 9-valent vaccine Robles Goldsmith DO Work Phone: [facility] 02-13-2009 novel [id number], preservative-free, injectable Robles Goldsmith DO Work Phone: [facility] 08-12-2006 meningococcal polysaccharide (groups A, C, Y and W-135) diphtheria toxoid conjugate vaccine (MCV4P) Robles Goldsmith DO Work Phone: [facility] 08-10-2000 diphtheria, tetanus toxoids and acellular pertussis vaccine, unspecified formulation Robles Goldsmith DO Work Phone: [facility] 08-10-2000 measles, mumps and rubella virus vaccine Robles Goldsmith DO Work Phone: [facility] 08-10-2000 poliovirus vaccine, inactivated Robles Goldsmith DO Work Phone: [facility] 08-04-1996 diphtheria, tetanus toxoids and acellular pertussis vaccine, unspecified formulation Robles Goldsmith DO Work Phone: [facility] 08-04-1996 haemophilus influenzae type b vaccine, conjugate unspecified formulation Robles Goldsmith DO Work Phone: [facility] 08-04-1996 varicella virus vaccine Robles Goldsmith DO Work Phone: [facility] 04-21-1996 measles, mumps and rubella virus vaccine Robles Goldsmith DO Work Phone: [facility] 03-17-1996 diphtheria, tetanus toxoids and acellular pertussis vaccine, unspecified formulation Robles Goldsmith DO Work Phone: [facility] 03-17-1996 haemophilus influenzae type b vaccine, conjugate unspecified formulation Robles Pyleer DO Work Phone: [facility] 03-17-1996 hepatitis B vaccine, pediatric or pediatric/adolescent dosage Robles Pyleer DO Work Phone: [facility] 03-17-1996 trivalent poliovirus vaccine, live, oral Robles Pyleer DO Work Phone: [facility] 1995 diphtheria, tetanus toxoids and pertussis vaccine Robles Rupal DO Work Phone: [facility] 1995 haemophilus influenzae type b vaccine, conjugate unspecified formulation Robles Pyleer DO Work Phone: [facility] 1995 hepatitis B vaccine, pediatric or pediatric/adolescent dosage Robles Pyleer DO Work Phone: [facility] 1995 trivalent poliovirus vaccine, live, oral Robles Pyleer DO Work Phone: [facility] 1995 diphtheria, tetanus toxoids and pertussis vaccine Robles Rupal DO Work Phone: [facility] 1995 haemophilus influenzae type b vaccine, conjugate unspecified formulation Robles Pyleer DO Work Phone: [facility] 1995 hepatitis B vaccine, pediatric or pediatric/adolescent dosage Robles Pyleer DO Work Phone: [facility] 1995 trivalent poliovirus vaccine, live, oral Robles Goldsmith DO Work Phone: [facility] Payers Date Payer Category Payer Private Health Insurance [id number] 2021 Managed Care (Private) [employer] [id number] 2021 Managed Care O (unspecified) [employer] [id number] 2021 Private Health Insurance [id number] 1995 Unknown [id number] [id number]. 2.593 1995 Unknown [id number] 2.16840.1.513196.3.579. 2.1243 1995 Unknown [id number] 2.840.1.839135.3.579. 2.1244 1995 Unknown [id number]. 2.1259 1995 Unknown [id number] 2.16840.1.105334.3.579. 2.1259 1995 Unknown [id number] 2.16840.1.624237.3.579. 2.1259 1995 Unknown [id number] 2.16840.1.555828.3.579. 2.1259 1995 Unknown [id number] 2.16840.1.215551.3.579. 2.1259 1995 Unknown [id number] 2.16.840.1.126448.3.579. 2.9 1995 Unknown [id number] 2.16.840.1.558792.3.579. 2.1258 1995 Unknown [id number] 2.16.840.1.221517.3.579. 2.1258 1995 Unknown [id number] 2.16.840.1.858634.3.579. 2.1258 1995 Unknown [id number] 2.16.840.1.998715.3.579. 2.1258 1995 Unknown [id number] 2.16.840.1.710913.3.579. 2.1258 1995 Unknown [id number] 2.16.840.1.109047.3.579. 2.1258 1995 Unknown [id number] 2.16.840.1.390282.3.579. 2.1258 1995 Unknown [id number] 2.16.840.1.049103.3.579. 2.9 1959 Self-pay Unknown MMO [id number] Unknown HCAP/HFA/FAP Active [id number] Social History Date Type Detail Facility Unknown if ever smoked [employer] Other Start: 01-04-2023 End: 07-18-2024 Sex Assigned At [employer] Other Start: 06-25-2019 End: 12-29-2022 Tobacco smoking status NHIS Never smoked tobacco [facility] Start: 10-05-2022 End: 12-29-2022 Tobacco use and exposure Smokeless tobacco non-user [facility] Start: 01-04-2023 End: 03-17-2024 Alcohol intake Current drinker of alcohol (finding) [facility] Start: 01-04-2023 End: 07-18-2024 History of Social function [facility] Start: 12-29-2022 Alcohol Comment rare, socially Elvis [facility] Start: 1995 Sex Assigned At Female C [facility] Start: 01-04-2023 Gender identity Identifies as female gender (finding) [facility] National Score (1-100), lower number is lower risk 64 [facility] Start: 02-15-2024 End: 04-21-2024 Alcoholic beverage intake Ex-drinker (finding) [facility] How often to you hav e a drink containing alcohol? Never [facility] Start: 07-13-2023 Alcohol Comment Caffeine intak e: [address] [facility] Start: 1995 Sex assigned at Not on file N [facility] Start: 02-27-2024 End: 03-08-2024 Exposure to SARS-CoV-2 (event) Not sure [facility] Start: 03-27-2024 Alcohol Comment Caffeine intak e:less than 100 mg daily [facility] Start: 02-27-2024 [facility] Start: 05-23-2024 End: 07-18-2024 Alcoholic beverage intake Lifetime non-drinker (finding) [facility] Start: 08-25-2024 Sex Female (finding) [facility] Medical Equipment Procedure Code Equipment Code Equipment Origin al Text Equipment Identifier Dates To be used to in ject HCG trigger [id number] Start: 02-17-2024 End: 03-17-2024 To be used to mi x, draw up and inject HCG trigger [id number] Start: 02-17-2024 End: 03-17-2024 Goals Date Patient Goal Desired Activity /State Personal health goal Functional Status Date Assessment Result Facility 07-18-2024 Patient Health Quest ionnaire 2 item (PHQ-2) [Reported] [facility] Clinical Notes 03-29-2020 to 08-16-2024 FLACA Kovacs - 08/16/2024 8:30 AM Maru Velazquez MD - 07/18/2024 9:15 AM Atilio Ashley LPN - 07/17/2024 10:40 AM Mana Ferrer DPM - 05/23/2024 4:00 PM ESTPatient Instructions Note Date & Type Note Facility 08-16-2024 History of Present illness Narrative Reason for Appointment: Patient ID: Lsisa Rivas is a 29 y.o. female who [...] nursing note reviewed. Exam conducted with a mobility developer present. Vitals: Estimated body mass index is 40.08 kg/m as calculated from the following: Height [...] of: FLACA Kovacs documented in this encounter [facility] 07-18-2024 History of Present illness Narrative Images [...] the care of an infertility clinic at [facility], where fertility treatments were conducted for approximately one year before achieving natural conception. 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 Metformin, previously prescribed for polycystic ovary syndrome [...] Date Anxiety Asthma LORA (generalized anxiety disorder) ([facility]) GERD (gastroesophageal reflux disease) Herpes simplex PCOS (polycystic ovarian syndrome) Seasonal allergies SURGICAL HISTORY: Past Surgical History: Procedure Laterality Date EYE SURGERY 03/2020 MICHAEL- Sid SOCIAL HISTORY: Social History Tobacco Use Smoking [...] since 04/2024. - No previous EKG performed; [employer] monitor will be ordered -order echo. - If heart rate exceeds 120 beats per minute for an extended period, further investigation will be warranted. Patient was seen and examined with Jaime Mccarthy CNP. History was confirmed and verified. Kelly elements of the exam were also completed. Assessment and plan were reviewed and addended as needed. Agree with documentation above. documented in this encounter [facility] 07-17-2024 History of Present illness Narrative Reason [...] nursing note reviewed. Exam conducted with a mobility developer present. Vitals: Estimated body mass index is [...] during travel. Patient was prescribed medication from undercover cop and provider will reach out to patient [...] leaving that lotion that was prescribed by Health Information Manager is safe to use, but not in large doses. PVU documented in this encounter [facility] 05-23-2024 History of Present illness Narrative Images from the original note were not included. Subjective Patient ID: Lissa Rivas is a 29 y.o. 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 She has tried [id number] antifungal treatments without relief. Additionally she has [...] Past Medical History: Diagnosis Date Anxiety Asthma (CMS/HCC) GERD (gastroesophageal reflux disease) HSV [...] today utilizing a nail Nipper and bur jewel grinder without incident. She will call us [...] Andrew Ferrer DPM documented in this encounter [facility] 05-22-2024 History of Present illness Narrative Reason for Appointment: Patient ID: Lissa Rivas is a 29 y.o. female who presents for Routine Visit Patient presents today for Return OB appointment. MEDICATIONS Current Outpatient Medications Medication Instructions cholecalciferol (Vitamin D-3) 50 MCG (2000 UT) tablet 2 tablets, Oral, Daily MV-Min-Fe [...] nursing note reviewed. Exam conducted with a mobility developer present. Vitals: Estimated body mass index is [...] or undercooked meat, and stay away from [facility]. Patient has been consulted regarding any further [...] Saravanan Ahumada DO documented in this encounter [facility] 05-15-2024 History of Present illness Narrative Reason [...] nursing note reviewed. Exam conducted with a mobility developer present. Vitals: Estimated body mass index is [...] Rosemary Hooper MA documented in this encounter [facility] 04-21-2024 History of Present illness Narrative Reason [...] or undercooked meat, and stay away from [facility]. Patient has also been advised to not [...] Rosemary Hooper MA documented in this encounter [facility] 2024 Note HNO ID: [id number] Author: ORTEGA MORRISSEY APRN.[employer] Service: ? Author Type: Nurse Practitioner Type: Progress Notes Filed: 2024 16:38 Note Text: Lissa Rivas here today for a scan. This is her 1st scan. 0 0 0 History of ectopic: No History of SAB: No History of pelvic/abdominal surgeries: No LMP 02/12, fertility medications used this cycle: let 5mg, date of LH surge: LH + 12/, TI Latest Ref Rng 01/04/2023 ABO A [...] Plan Move on to OB Ortega Morrissey APRN.[employer] 2024 4:34 PM [facility] 2024 History of Present illness Narrative Lissa Rivas here today for a scan. This is her 1st scan. 0 0 0 History of ectopic: No History of SAB: No History of pelvic/abdominal surgeries: No LMP 02/12, fertility medications used this cycle: let 5mg, date of LH surge: LH + 12, TI Latest Ref Rng 01/04/2023 ABO A [...] Plan Move on to OB Ortega Morrissey APRN.JORDAN 2024 4:34 PM documented in this encounter [facility] 03-27-2024 History of Present illness Narrative [...] Dispense Refill cholecalciferol (Vitamin D-3) 50 MCG (1999) tablet [...] [facility]. Appointments scheduled for OBUS in [place] office on 04/12 and with [facility] on 05/01. 03/27/2024 3:01 PM documented in this encounter [facility] 03-20-2024 Progress note Formatting of t his [...] Hysteroscopy Laparoscopy OPK (Ovulation Predictor Kit) [facility] [place] [facility] 10.91 High 01/04/2023 Saline Ultrasound Semen [...] visit. Either the patient or their legal medical collections representative has been informed of the risks and benefits of -- and alternatives to -- treatment through a remote evaluation and consents to proceed with the evaluation remotely. I spent a total of 30 minutes on the date of the service which included preparing to see the patient, ifmk-[id number] patient care, counseling and educating the patient/family/caregiver, ordering medications, tests, or procedures, communicating results to the patient/family/caregiver, and care coordination (not separately reported). MD Kim Branch MD [facility] 03-20-2024 Consult note Formatting of th [...] Hysteroscopy Laparoscopy OPK (Ovulation Predictor Kit) [facility] [place] [facility] 10.91 High 01/04/2023 Saline Ultrasound Semen [...] visit. Either the patient or their legal medical collections representative has been informed of the risks and benefits of -- and alternatives to -- treatment through a remote evaluation and consents to proceed with the evaluation remotely. I spent a total of 30 minutes on the date of the service which included preparing to see the patient, [id number] patient care, counseling and educating the patient/family/caregiver, ordering medications, tests, or procedures, communicating results to the patient/family/caregiver, and care coordination (not separately reported). MD Kim Branch MD documented in this encounter [facility] 03-17-2024 Note HNO ID: [id number] Author: ORTEGA MORRISSEY APRN.[employer] Service: ? Author Type: Nurse Practitioner Type: Progress Notes Filed: 03/17/2024 14:22 Note Text: [facility] ENDO[facility] INFERTILITY New SERVICE DATE: 03/17/2024 SERVICE TIME: 1:56 PM NAME: Lissa Rivas VIRTUAL VISIT PROGRESS NOTE This is a virtual visit. It required patient-provider interaction for the medical decision making as documented below. Patient name and birthday verified: Yes Location of patient: [place] Persons Present: patient I have communicated my name and active licensure. The patient's identity and physical location were verified at the time of this visit. Either the patient or their legal medical collections representative has been informed of the risks [...] 5mg, date of LH surge: LH + 12/, TI Latest Ref Rng 01/04/2023 ABO A [...] which included preparing to see the patient, [id number] patient care, completing clinical documentation, obtaining and/or [...] schedule the patient for the following- Location: [facility] Provider: Nurse Visit type: OB scan Reason for visit/appointment notes: OB scan Date: 04/03 Time (requested): 1110 If slot is full, please schedule the closest open slot. Call to patient needed: no [facility] 03-17-2024 History of Present illness Narrative Images from the original note were not included. [facility]FERT[facility] New SERVICE DATE: 03/17/2024 SERVICE TIME: 1:56 PM NAME: Lissa Rivas VIRTUAL VISIT PROGRESS NOTE This is a virtual visit. It required patient-provider interaction for the medical decision making as documented below. Patient name and birthday verified: Yes Location of patient: [place] Persons Present: patient I have communicated my name and active licensure. The patient's identity and physical location were verified at the time of this visit. Either the patient or their legal medical collections representative has been informed of the risks [...] 5mg, date of LH surge: LH + 12/6, TI Latest Ref Rng 01/04/2023 ABO A [...] which included preparing to see the patient, [id number]-[id number] patient care, completing clinical documentation, obtaining and/or [...] notes: OB scan Date: 04/03 Time (requested): 1109 If slot is full, please schedule the closest open slot. Call to patient needed: no documented in this encounter [facility] 03-13-2024 Telephone encounter Note Patient calls [...] ordered: HCG x2 FYI Dr. Bill Morrissey APRN.JORDAN March 13, 2024 1:37 PM [facility] 03-13-2024 Miscellaneous Notes Patient calls with [...] ordered: HCG x2 FYI [address] Bill Morrissey APRN.[employer] March 13, 2024 1:37 PM Patient states she skipped this month and has +hpt, please follow up with patient. documented in this encounter [facility] 03-13-2024 Telephone encounter Note Patient states she skipped this month and has +hpt, please follow up with patient. [facility] Work Phone: 03-08-2024 History of Present [...] Use: Not At Risk (02/15/2024) Received from [facility] AUDIT-C Frequency of Alcohol Consumption: Never Average [...] and 96% in the left ear. Speech receptionist nurse threshold is 10 dB in the right ear and 5 dB in the left ear. Procedure: [] Gabriel Blackwell DO documented in this encounter [facility] Work Phone: 02-28-2024 Telephone encounter Note Spoke [...] MORRISSEY APRN.CNP February 28, 2024 11:54 AM [facility] 02-28-2024 Miscellaneous Notes Spoke with Thao, [...] after she pays documented in this encounter [facility] 02-28-2024 Telephone encounter Note Pt is not financially clear yet should she still schedule it after she pays [facility] 02-23-2024 Note HNO ID: [id number] Author: ORTEGA MORRISSEY APRN.CNP Service: ? Author Type: Nurse Practitioner Type: Progress Notes Filed: 02/23/2024 13:56 Note Text: Lissa Rivas is here today for a midcycle scan. Lead follicle: 11 Plan: repeat scan 02/24 Ortega Morrissey APRN.CNP February 23, 2024 1:54 PM Please schedule the patient for the following- Location: [facility] Provider: Nurse Visit type: midcycle Reason for visit/appointment notes: midcycle Date: 02/24 Time (requested): 0730 If slot is full, please schedule the closest open slot. Call to patient needed: no [facility] 02-23-2024 Note HNO ID: [id number] Author: PAULA HESTER RN Service: ? Author [...] Hester RN February 23, 2024 7:46 AM [facility] 02-23-2024 History of Present illness Narrative The patient is here today for follicular ultrasound and blood work. The patient reports no problems or complaints. Ultrasound and blood will be reviewed by the physician, the flow sheet will be updated and instructions will be communicated to the patient. Paula Hester RN February 23, 2024 7:46 AM documented in this encounter [facility] 02-21-2024 Telephone encounter Note Medication send the specialty on 02/17. Ortega Morrissey APRN.CNP February 21, 2024 10:39 AM [facility] 02-21-2024 Miscellaneous Notes Medication send the CS specialty on 02/17. Ortega Morrissey APRN.CNP February 21, 2024 10:39 AM [facility] documented in this encounter [facility] 02-21-2024 Telephone encounter Note Needs hcg [facility] 02-17-2024 Plan of care note Lissa [...] visit. Either the patient or their legal medical collections representative has been informed of the risks and benefits of -- and alternatives to -- treatment through a remote evaluation and consents to proceed with the evaluation remotely. I spent a total of 30 minutes on the date of the service which included preparing to see the patient, abmu-aa-[id number] patient care, counseling and educating the patient/family/caregiver, ordering medications, tests, or procedures, communicating results to the patient/family/caregiver, and care coordination (not separately reported). Kim Khan MD [facility] 02-17-2024 Miscellaneous Notes Lissa Rivas is [...] visit. Either the patient or their legal medical collections representative has been informed of the risks and benefits of -- and alternatives to -- treatment through a remote evaluation and consents to proceed with the evaluation remotely. I spent a total of 30 minutes on the date of the service which included preparing to see the patient, ofhu-qr-[id number] patient care, counseling and educating the patient/family/caregiver, ordering medications, tests, or procedures, communicating results to the patient/family/caregiver, and care coordination (not separately reported). Kim Khan MD documented in this encounter [facility] 02-15-2024 History of Present illness Narrative Images from the original note were not included. Robles Goldsmith, DO Obstetrics and Gynecology Lissa Rivas 1995 02/15/24 [id number] Yearly Wellness Exam Chief Complaint Patient presents [...] the evening. cholecalciferol (Vitamin D-3) 50 MCG (2000 UT) tablet Take 2 tablets by mouth [...] angle tenderness, no obvious scoliosis/kyphosis. 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 She works from home for [employer]. Entered by Adilene Ford MA acting as scribe for Dr. Robles Golsdmith. Signature Adilene Ford MA Date 02/15/24 . Time 3:12 PM . The documentation recorded by the scribe accurately reflects the service(s) I personally performed and the decisions I made. Signature Jordan Goldsmith D.O. Date 02/15/24 Time 5:00PM. documented in this encounter [facility] 02-15-2024 Telephone encounter Note Spoke with Thao, [...] open slot. Call to patient needed: no [facility] 02-15-2024 Miscellaneous Notes Spoke with Thao, [...] up with patient. documented in this encounter [facility] 02-15-2024 Telephone encounter Note Patient states this past month in January she did not ovulate so she did not go through with iui, please follow up with patient. [facility] Work Phone: 01-14-2024 Telephone encounter Note Spoke with Lissa, She is planning to use OPK only this cycle. Jeferson call with LH surge. Ortega Morrissey APRN.CNP January 14, 2024 4:17 PM [facility] 01-14-2024 Miscellaneous Notes Spoke with Lissa, She is planning to use OPK only this cycle. Jeferson call with LH surge. Ortega Morrissey APRN.CNP January 14, 2024 4:17 PM Pt started cycle 01/12 and would like to discuss plan for scheduling iui documented in this encounter [facility] 01-14-2024 Telephone encounter Note Pt started cycle 01/12 and would like to discuss plan for scheduling iui [facility] 12-31-2023 Note HNO ID: [id number] Author: ORTEGA MORRISSEY APRN.CNP Service: ? Author [...] Cycle Day: 20 Last menstrual period: 12/12/2023 [place] Protocol: UNIVERSAL PROTOCOL / SAFETY CHECKLIST Procedure [...] DATE: December 31, 2023 TIME: 10:25 AM [facility] 12-31-2023 Procedure note WHI GAYATHRI IUI PROCEDURE NOTE Date: 12/31/2023 Primary Proceduralist: Ortega Morrissey APRN.CNP Consents and Labels Consent Signed: Informed Consent obtained and on the chart Labels Verified With Patient: Yes Indications: Lissa Rivas, is a 28 year old female here today for intrauterine insemination. IUI # Series 1 Cycle 3. Cycle Day: 20 Last menstrual period: 12/12/2023 [place] Protocol: UNIVERSAL PROTOCOL / SAFETY CHECKLIST Procedure [...] DATE: December 31, 2023 TIME: 10:25 AM [facility] 12-31-2023 Procedure note WHI GAYATHRI IUI PROCEDURE NOTE Date: 12/31/2023 Primary Proceduralist: Ortega Morrissey APRN.CNP Consents and Labels Consent Signed: Informed Consent obtained and on the chart Labels Verified With Patient: Yes Indications: Lissa Rivas, is a 28 year old female here today for intrauterine insemination. IUI # Series 1 Cycle 3. Cycle Day: 20 Last menstrual period: 12/12/2023 [place] Protocol: UNIVERSAL PROTOCOL / SAFETY CHECKLIST Procedure [...] TIME: 10:25 AM documented in this encounter [facility] 12-31-2023 Nurse Note Fig Bar Machine Operator offered: Patient declines. [facility] 12-31-2023 Nurse Note Fig Bar Machine Operator offered: Patient declines. documented in this encounter [facility] 12-21-2023 History of Present illness Narrative [...] plan provided to patient via a Fertility cleaning team member. Kim Khan MD documented in this encounter [facility] 12-21-2023 Note HNO ID: [id number] Author: RBOIN GREWAL RN Service: ? Author Type: Registered Nurse Type: Progress Notes Filed: 12/21/2023 14:32 Note Text: pt using LH surge strips and will call to irvin Grewal RN December 21, 2023 2:32 PM [facility] 12-21-2023 Note HNO ID: [id number] Author: FEDE HAIRSTON MD Service: ? Author [...] plan provided to patient via a Fertility cleaning team member. Kim Khan MD [facility] 12-13-2023 Telephone encounter Note LMP 9/15 Plan: Let 5mg, trigger, IUI#2 Flowsheet/episode created Ortega Morrissey APRN.CNP December 13, 2023 4:42 PM Please schedule the patient for the following- Location: [place] Provider: Nurse Visit type: Midcycle Reason for visit/appointment notes: Midcycle Date: 12/20 Time (requested): 730 If slot is full, please schedule the closest open slot. Call to patient needed: no [facility] 12-13-2023 Miscellaneous Notes [facility] 12/11 Plan: Let 5mg, trigger, IUI#2 Flowsheet/episode created Ortega Morrissey APRN.CNP December 13, 2023 4:42 PM Please schedule the patient for the following- Location: [place] Provider: Nurse Visit type: Midcycle Reason for visit/appointment notes: Midcycle Date: 12/20 Time (requested): 730 If slot is full, please schedule the closest open slot. Call to patient needed: no documented in this encounter [facility] 11-28-2023 Note HNO ID: [id number] Author: EVANGELINA PAINTER, ? Service: ? Author Type: Cardiovascular Specialist Type: Progress Notes Filed: 11/28/2023 11:00 Note Text: IUI Pre: 72 M/ml, 63% Post: 73 M/ml, 88% Insem # 44.8 million [facility] 11-28-2023 History of Present illness Narrative IUI Pre: 72 M/ml, 63% Post: 73 M/ml, 88% Insem # 44.8 million IUI specimen released to provider Evangelina Painter November 28, 2023 10:48 AM documented in this encounter [facility] 11-28-2023 Note HNO ID: [id number] Author: DESHAWN RIOJAS MD Service: ? Author [...] Cycle Day: 13 Last menstrual period: 11/12/2023 [place] Protocol: UNIVERSAL PROTOCOL / SAFETY CHECKLIST Procedure [...] DATE: November 28, 2023 TIME: 10:52 AM [facility] 11-28-2023 Procedure note WHI GAYATHRI IUI PROCEDURE NOTE Date: 11/28/2023 Primary Proceduralist: Deshawn Riojas MD, Sandra Cruz MD Consents and Labels Consent Signed: Informed Consent obtained and on the chart Labels Verified With Patient: Yes Indications: Lissa Rivas, is a 28 year old female here today for intrauterine insemination. IUI # . Cycle Day: 13 Last menstrual period: 11/12/2023 [place] Protocol: UNIVERSAL PROTOCOL / SAFETY CHECKLIST Procedure [...] DATE: November 28, 2023 TIME: 10:52 AM T [facility] 11-28-2023 Procedure note WHI GAYATHRI IUI PROCEDURE NOTE Date: 11/28/2023 Primary Proceduralist: eDshawn Riojas MD, Sandra Cruz MD Consents and Labels Consent Signed: Informed Consent obtained and on the chart Labels Verified With Patient: Yes Indications: Lissa Rivas, is a 28 year old female here today for intrauterine insemination. IUI # . Cycle Day: 13 Last menstrual period: 11/12/2023 [place] Protocol: UNIVERSAL PROTOCOL / SAFETY CHECKLIST Procedure [...] TIME: 10:52 AM documented in this encounter [facility] 11-28-2023 Note HNO ID: [id number] Author: EVANGELINA PAINTER, ? Service: ? Author Type: Cardiovascular Specialist Type: Progress Notes Filed: 11/28/2023 10:54 Note Text: IUI specimen released to provider Evangelina Painter November 28, 2023 10:48 AM [facility] 11-22-2023 Note HNO ID: [id number] Author: ORTEGA MORRISSEY APRN.CNP Service: ? Author Type: Nurse Practitioner Type: Progress Notes Filed: 11/22/2023 15:00 Note Text: REPRODUCTIVE ENDOCRINOLOGY AND INFERTILITY VIRTUAL VISIT PROGRESS NOTE SERVICE DATE: 11/22/2023 SERVICE TIME: 2:33 PM NAME: Lisas Rivas VIRTUAL VISIT PROGRESS NOTE This is a virtual visit. It required patient-provider interaction for the medical decision making as documented below. Patient name and birthday verified: Yes Location of patient: [place] Persons Present: patient I have communicated my name and active licensure. The patient's identity and physical location were verified at the time of this visit. Either the patient or their legal medical collections representative has been informed of the risks [...] Once starting progesterone had intense mood swings/irritability [place] heart was beating slower than normal but [...] which included preparing to see the patient, vqzu-hw-bchy patient care, completing clinical documentation, obtaining and/or [...] grammatical and typographical errors missed in proofreading. [facility] 11-22-2023 History of Present illness Narrative Images from the original note were not included. REPRODUCTIVE ENDOCRINOLOGY AND INFERTILITY VIRTUAL VISIT PROGRESS NOTE SERVICE DATE: 11/22/2023 SERVICE TIME: 2:33 PM NAME: Lissa Rivas VIRTUAL VISIT PROGRESS NOTE This is a virtual visit. It required patient-provider interaction for the medical decision making as documented below. Patient name and birthday verified: Yes Location of patient: [place] Persons Present: patient I have communicated my name and active licensure. The patient's identity and physical location were verified at the time of this visit. Either the patient or their legal medical collections representative has been informed of the risks [...] Once starting progesterone had intense mood swings/irritability [place] heart was beating slower than normal but [...] which included preparing to see the patient, weey-ju-pnxp patient care, completing clinical documentation, obtaining and/or [...] missed in proofreading. documented in this encounter [facility] 11-22-2023 Note HNO ID: [id number] Author: ERMA DONIS RN Service: ? Author [...] called patient. She will drive back to [place] now to get done. Erma Donis RN [...] Donis RN November 22, 2023 12:53 PM [facility] 11-22-2023 History of Present illness Narrative Lissa Rivas is here today for a midcycle scan. Lead follicle: 21mm vs CL Erma Donis RN November 22, 2023 8:44 AM Message sent to Dr. Howard to see if patient needs labs based on scan. Erma Donis RN November 22, 2023 8:09 AM Labs ordered and called patient. She will drive back to [place] now to get done. Erma Donis RN November 22, 2023 8:45 AM 11/22/2023 11 trigger 25+<10mm 21.2, 25+<10mm 5.6mm tri p4=0.3 lh=5.1 JR 11/23/2023 12 11/24/2023 13 IUI RN called patient, name and verified. Plan given for midcycle per physician, see flowsheet for details. [employer] message sent. Medications reviewed and verified, instructions given. Patient denies any questions or concerns. Erma Donis RN November 22, 2023 12:53 PM documented in this encounter [facility] 11-15-2023 Telephone encounter Note Plan: Let 5mg/trigger/IUI #2 Ortega Morrissey APRN.CNP November 15, 2023 9:39 AM Please schedule the patient for the following- Location: [place] Provider: Nurse Visit type: Follicular scan Reason for visit/appointment notes: Follicular scan Date: 11/21 Time (requested): 0715 If slot is full, please schedule the closest open slot. Call to patient needed: no [facility] 11-15-2023 Miscellaneous Notes Plan: Let 5mg/trigger/IUI #2 Ortega Morrissey APRN.CNP November 15, 2023 9:39 AM Please schedule the patient for the following- Location: [place] Provider: Nurse Visit type: Follicular scan Reason for visit/appointment notes: Follicular scan Date: 11/21 Time (requested): 0715 If slot is full, please schedule the closest open slot. Call to patient needed: no Patient is planning IUI. FYI: [employer]. Please see the checklist Madeleine Orta PA-C November 12, 2023 6:07 PM Pt had iui 10/25 , pt had negative preg 8/13 or 8/14 , pt started cycle 11/11 documented in this encounter [facility] 11-12-2023 Telephone encounter Note Patient is planning IUI. FYI: [employer] Mg. Please see the checklist Madeleine Orta PA-C November 12, 2023 6:07 PM [facility] Work Phone: 11-12-2023 Telephone encounter Note Pt had iui 10/25 , pt had negative preg 8/13 or 8/14 , pt started cycle 11/11 [facility] 10-26-2023 Telephone encounter Note This patient [...] seven days of my reply. See the [employer] message reply for my assessment and plan. I spent a total of 5 minutes reviewing the patient's prior medical records and current request for medical advice, prescribing medications or ordering tests (if applicable), replying to the patient, and documenting the encounter. [facility] 10-26-2023 Miscellaneous Notes This patient gave [...] seven days of my reply. See the [employer] message reply for my assessment and plan. I spent a total of 5 minutes reviewing the patient's prior medical records and current request for medical advice, prescribing medications or ordering tests (if applicable), replying to the patient, and documenting the encounter. documented in this encounter [facility] 10-26-2023 Note HNO ID: [id number] Author: ORTEGA MORRISSEY APRN.CNP Service: ? Author [...] Cycle Day: 15 Last menstrual period: 10/12/2023 [place] Protocol: UNIVERSAL PROTOCOL / SAFETY CHECKLIST Procedure [...] DATE: October 26, 2023 TIME: 11:36 AM [facility] 10-26-2023 Procedure note WHI GAYATHRI IUI PROCEDURE NOTE Date: 10/26/2023 Primary Proceduralist: Ortega Morrissey APRN.CNP Consents and Labels Consent Signed: Informed Consent obtained and on the chart Labels Verified With Patient: Yes Indications: Lissa Rivas, is a 28 year old female here today for intrauterine insemination. IUI # Series 1 Cycle 1. Cycle Day: 15 Last menstrual period: 10/12/2023 [place] Protocol: UNIVERSAL PROTOCOL / SAFETY CHECKLIST Procedure [...] DATE: October 26, 2023 TIME: 11:36 AM [facility] 10-26-2023 Procedure note WHI GAYATHRI IUI PROCEDURE NOTE Date: 10/26/2023 Primary Proceduralist: Ortega Morrissey APRN.CNP Consents and Labels Consent Signed: Informed Consent obtained and on the chart Labels Verified With Patient: Yes Indications: Lissa Rivas, is a 28 year old female here today for intrauterine insemination. IUI # Series 1 Cycle 1. Cycle Day: 15 Last menstrual period: 10/12/2023 [place] Protocol: UNIVERSAL PROTOCOL / SAFETY CHECKLIST Procedure [...] TIME: 11:36 AM documented in this encounter [facility] 10-22-2023 Note HNO ID: [id number] Author: AYANNA TREVIZO MD Service: ? Author Type: Physician Type: Progress Notes Filed: 10/22/2023 23:02 Note Text: GAYATHRI Attending Physician Note: Ultrasound and lab results reviewed. Based on review of ultrasound and lab results, medication dose and follow up date plans provided. See cycle flowsheet for dosing details. Ayanna Trevizo MD, FLACO [facility] 10-22-2023 Note HNO ID: [id number] Author: ERMA DONIS RN Service: ? Author [...] Donis RN October 22, 2023 1:38 PM [facility] 10-22-2023 History of Present illness Narrative Lissa [...] 2023 1:38 PM documented in this encounter [facility] 10-20-2023 Telephone encounter Note patient instructed to order trigger now so that she has it by Wednesday Ani Stovall APRN.CNP October 20, 2023 3:10 PM [facility] 10-20-2023 Miscellaneous Notes patient instructed to order trigger now so that she has it by Wednesday Ani Stovall APRN.CNP October 20, 2023 3:10 PM Pts pharmacy called and would like to know when she needs to order trigger shot documented in this encounter [facility] 10-20-2023 Telephone encounter Note Pts pharmacy called and would like to know when she needs to order trigger shot [facility] 10-12-2023 Telephone encounter Note The following approved medication requests have been transmitted electronically. Requested Prescriptions Signed Prescriptions Disp Refills Choriogonadotropin Pam,HumRec (OVIDREL) 250 mcg/0.5 mL syrg 0.5 mL 1 Sig: Inject 250 mcg subcutaneously one time only for 1 dose. Authorizing Provider: ORTEGA MORRISSEY APRN.CNP October 12, 2023 4:10 PM [facility] 10-12-2023 Miscellaneous Notes The following approved [...] schedule the patient for the following- Location: [place] Provider: nurse Visit type: mid cycle Reason for visit/appointment notes: mid cycle non ivf Date: 10-22-23 Time (requested): 0700 If slot is full, please schedule the closest open slot. Call to patient needed: no Patient states she also needs information regarding trigger shot. Please call patient. documented in this encounter [facility] 10-12-2023 Telephone encounter Note Called the [...] open slot. Call to patient needed: no [facility] 10-12-2023 Telephone encounter Note Patient states she also needs information regarding trigger shot. Please call patient. [facility] Work Phone: 09-10-2023 Note HNO ID: [id number] Author: ORTEGA MORRISSEY APRN.CNM Service: ? Author [...] and birthday verified: Yes Location of patient: [place] Persons Present: patient I have communicated my name and active licensure. The patient's identity and physical location were verified at the time of this visit. Either the patient or their legal medical collections representative has been informed of the risks and benefits of -- and alternatives to -- treatment through a remote evaluation and consents to proceed with the evaluation remotely. Reason for visit: IUI Teach [facility] [employer] [facility] Primary GAYATHRI Physician: Dr. Khan IUI Treatment Plan: Letrozole 5mg/trigger/IUI Partner's name/MRN: Brenton [id number] LMP: 07/23 IUI Checklist: Consultation: Done Registration of patient and partner: Done Financial Clearance: In process IUI Patient Education: AS IUI Patient Fact Sheet IUI Consent Form: sent today via [employer] Orders: filed today Medications ordered today Screening [...] Count Sperm M 592.20 % Motile Sperm (%MT + %BROKER ASSOCIATE) >=40 % 64 Forward Progression 4 = [...] which included preparing to see the patient, nbzj-za-vwvi patient care, completing clinical documentation, obtaining and/or [...] be grammatical and (more content not included)... [facility] 09-10-2023 History of Present illness Narrative Images from the original note were not included. REPRODUCTIVE ENDOCRINOLOGY AND INFERTILITY IUI TEACH SERVICE DATE: 09/10/2023 SERVICE TIME: 2:56 PM NAME: Lissa Rivas VIRTUAL VISIT PROGRESS NOTE This is a virtual visit. It required patient-provider interaction for the medical decision making as documented below. Patient name and birthday verified: Yes Location of patient: [place] Persons Present: patient I have communicated my name and active licensure. The patient's identity and physical location were verified at the time of this visit. Either the patient or their legal medical collections representative has been informed of the risks and benefits of -- and alternatives to -- treatment through a remote evaluation and consents to proceed with the evaluation remotely. Reason for visit: IUI Teach HPI Primary GAYATHRI Physician: Dr. Khan IUI Treatment Plan: Letrozole 5mg/trigger/IUI Partner's name/MRN: Brenton [id number] LMP: 07/23 IUI Checklist: Consultation: Done Registration of patient and partner: Done Financial Clearance: In process IUI Patient Education: ASRM IUI Patient Fact Sheet IUI Consent Form: sent today via [employer] Orders: filed today Medications ordered today Screening [...] Count Sperm M 592.20 % Motile Sperm (%MT + %BROKER ASSOCIATE) >=40 % 64 Forward Progression 4 = [...] if progesterone and HCG low/neg Ortega Morrissey APRN.[facility] September 10, 2023 2:56 PM I spent a total of 40 minutes on the date of the service which included preparing to see the patient, [id number]-ax-hbdl patient care, completing clinical documentation, obtaining and/or [...] missed in proofreading. documented in this encounter [facility] 09-09-2023 Telephone encounter Note The following approved medication requests have been transmitted electronically. Requested Prescriptions Signed Prescriptions Disp Refills medroxyPROGESTERone (PROVERA) 10 mg tablet 10 tablet 0 Sig: Take 1 tablet by mouth once daily. Authorizing Provider: ORTEGA MORRISSEY APRN.CNM September 09, 2023 9:07 AM [facility] 09-09-2023 Miscellaneous Notes The following approved [...] her lab results documented in this encounter [facility] 09-09-2023 Telephone encounter Note Called the [...] 0.2 hCG Quantitative, Blood <5.0 mIU/mL <0.6 [facility] 09-08-2023 Telephone encounter Note Iui Patient called in regards to her lab results [facility] 09-02-2023 Telephone encounter Note Returned patient [...] Mcclellan RN September 02, 2023 1:11 PM [facility] 09-02-2023 Miscellaneous Notes Returned patient call [...] for 1.5 days (August 22 & part August 23). Patient has tested for 2x, [...] up with patient. documented in this encounter [facility] 09-02-2023 Telephone encounter Note Returned patient [...] Mcclellan RN September 02, 2023 11:41 AM [facility] 09-02-2023 Telephone encounter Note Please follow up with patient. [facility] Work Phone: 08-19-2023 Progress note Formatting of t his note is different from the original. 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 Either the patient or their legal medical collections representative has been informed of the risks and benefits of -- and alternatives to -- treatment through a remote evaluation and consents to proceed with the evaluation remotely. I spent a total of 30 minutes on the date of the service which included preparing to see the patient, qilt-kv-[id number] patient care, completing clinical documentation, counseling and educating the patient/family/caregiver, ordering medications, tests, or procedures, communicating results to the patient/family/caregiver, and care coordination (not separately reported). Kim Khan MD [facility] 08-19-2023 Consult note Formatting of th is note is different from the original. [facility] Date: 08/19/2023 Consultation Requested By: [...] appointment with cancer genetic team soon. 5. Goodreads - test neg for all mutations. 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 Either the patient or their legal medical collections representative has been informed of the risks and benefits of -- and alternatives to -- treatment through a remote evaluation and consents to proceed with the evaluation remotely. I spent a total of 30 minutes on the date of the service which included preparing to see the patient, ozvx-vz-[id number] patient care, completing clinical documentation, counseling and educating the patient/family/caregiver, ordering medications, tests, or procedures, communicating results to the patient/family/caregiver, and care coordination (not separately reported). Kim Khan MD documented in this encounter [facility] 08-19-2023 Plan of care note Patient [...] daily Comments: None Kim Khan MD 08/19/2023 [facility] 08-19-2023 Miscellaneous Notes Patient indicated that [...] Khan MD 08/19/2023 documented in this encounter [facility] 08-17-2023 Note HNO ID: [id number] Author: МАРИЯ LABOY MD Service: ? Author [...] while trying for , who presents to [facility] care. Her genetic testing indicates she has [...] aerodigestive tract ANESTHESIA: (more content not included)... [facility] 08-17-2023 History of Present illness Narrative CC: [...] while trying for , who presents to [facility]. Her genetic testing indicates she has [...] while trying for , who presents to [facility] care. Her genetic testing indicates she has [...] Мария Laboy MD documented in this encounter [facility] 08-17-2023 Nurse Note Tobacco Use: Never Was smoking cessation packet given? N/A - Patient is a non-smoker or quit >1 year ago. Was a referral initiated?N/A Patient is a non-smoker [facility] 08-17-2023 Nurse Note Tobacco Use: Never Was smoking cessation packet given? N/A - Patient is a non-smoker or quit >1 year ago. Was a referral initiated?N/A Patient is a non-smoker documented in this encounter [facility] 08-17-2023 Note HNO ID: [id number] Author: MIRTA GALLAGHER MD Service: ? Author [...] Medication Sig letrozo (more content not included)... [facility] 08-17-2023 History of Present illness Narrative DATE: [...] MD, MPH Endocrinology documented in this encounter [facility] 08-17-2023 Instructions Latosha Wesley MA - 08/17/2023 9:53 AM EDT Thank you for choosing the [facility] Department of Endocrinology, Diabetes and Metabolism. Did you know that you need to call 48 hours in advance of your scheduled visit, if you are unable to make your appointment? The Endocrinology and Metabolism [facility] thanks you for your commitment, because patients not showing to their appointment results in a lost opportunity for patients to receive world class health care at the [facility]. To Cancel an appointment, please choose one of the following: - Call the Appointment Call Center at [phone] - From [facility], Go to Appointments - Cancel Appts If cancelling, consider your need to reschedule to prevent further delays in your care. To Schedule an appointment, please choose one of the following: - Call the Appointment Call Center at [phone] - From [facility], Go to Appointments - Request an Appt documented in this encounter [facility] 07-29-2023 History of Present illness Narrative [...] PATIENT PRESENTS WITH AN IMPLANTABLE OR ATTACHED GENERAL ROAD FOREMAN: No RADIOLOGY DEPARTMENT: General X-ray: Exam(s) Completed: HSG PERIPHERAL IV DATA: Not applicable SIGNED BY: RT Clark(Loc) July 29, 2023 1:58 PM documented in this encounter [facility] 07-29-2023 Note HNO ID: [id number] Author: FLIP NEWMAN RT(Loc) Service: Radiology Author [...] PATIENT PRESENTS WITH AN IMPLANTABLE OR ATTACHED GENERAL ROAD FOREMAN: No RADIOLOGY DEPARTMENT: General X-ray: Exam(s) Completed: HSG PERIPHERAL IV DATA: Not applicable SIGNED BY: RT Clark(R) July 29, 2023 1:58 PM [facility] 07-29-2023 Note HNO ID: [id number] Author: ORTEGA MORRISSEY APRN.CNM Service: ? Author [...] without evidence of loculation. Ortega Morrissey APRN.CNM [facility] 07-29-2023 Procedure note WHI GAYATHRI HYSTEROSALPINGOGRAM NOTE [...] without evidence of loculation. Ortega Morrissey APRN.CNM [facility] 07-29-2023 Procedure note I GAYATHRI HYSTEROSALPINGOGRAM NOTE Date: July 29, 2023 [...] Ortega Morrissey APRN.CNM documented in this encounter [facility] 06-23-2023 Note HNO ID: [id number] Author: RADHA HAWKINS RT(R) Service: Radiology Author Type: Cardiovascular Specialist Type: Progress Notes Filed: 06/23/2023 09:10 Note [...] PATIENT PRESENTS WITH AN IMPLANTABLE OR ATTACHED GENERAL ROAD FOREMAN: No ALLERGIES: Reviewed and unchanged CONTRAST ALLERGY: [...] DATE: June 23, 2023 TIME: 9:09 AM [facility] 06-16-2023 Miscellaneous Notes Addended by: МАРИЯ LABOY [...] Мария Laboy. Patient will be updated via [email or web address] when orders are placed for imaging. Fina Lizaam MS, [facility] [place], Certified Genetic Counselor documented in this encounter [facility] 06-14-2023 Telephone encounter Note Patient had [...] to try for children. Elsa Puentes MS, [facility] [place] Licensed, Certified Genetic Counselor [facility] Work Phone: 06-14-2023 Miscellaneous Notes Patient [...] to try for children. Elsa Puentes MS, [facility] [place], Certified Genetic Counselor Patient name and was confirmed at initiation of discussion. Lissa Rivas's Integrated BRACAnalysis with [facility] through Friday was positive for a pathogenic variant in [...] population without disease (benign polymorphism). Please see CleverSet message for further discussion. CHRISTIE Magdaleno Licensed, Certified Genetic Counselor documented in this encounter [facility] 06-10-2023 Telephone encounter Note Patient name and was confirmed at initiation of discussion. Lissa Rivas's Integrated BRACAnalysis with Humberto through Friday was positive for a pathogenic variant in [...] population without disease (benign polymorphism). Please see CleverSet message for further discussion. CHRISTIE Magdaleno Licensed, Certified Genetic Counselor [facility] 05-25-2023 Miscellaneous Notes The following approved [...] May 25, 2023 10:06 AM Valentin in [place] is pharmacy. Please follow up with patient. documented in this encounter [facility] 05-17-2023 Miscellaneous Notes Spoke to Thao again, confirmed name/. Reviewed information regarding genetic testing. After our discussion, patient provided informed consent for SELF PAY Integrated BRACAnalysis with [facility] and SDHA single site mutation analysis. Order placed today. Groverjuliet said the following about the SDHA variant: This SDHA variant would be outside of our reportable range, as we unfortunately do not offer CNV analysis of SDHA at this time. Please let me know if you have any additional questions. Discussed with patient they they cannot detect the familial mutation. Reviewed testing at [facility] as the best option, since we know that they detected this particular mutation in her mother. The patient was offered SDHA single site mutation analysis through Friday or self pay Integrated BRACAnalysis with [facility] and SDHA single site mutation analysis through Friday. After considering the risks, benefits, and limitations, the patient chose to pursue and provided informed consent for the following testing: SELF PAY Integrated BRACAnalysis with [facility] and SDHA single site mutation analysis through Friday. The [facility] panel includes APC, MICHAEL, AXIN2, BAP1, BARD1, BMPR1A, BRCA1, BRCA2, BRIP1, CDH1, CDK4, CDKN2A, CHEK2, CTNNA1, EGFR, EPCAM, FH, FLCN, GREM1, HOXB13, MEN1, MET, MITF, MLH1, MSH2, MSH3, MSH6, MUTYH, NTHL1, PALB2, PMS2, POLD1, POLE, PTEN, RAD51C, RAD51D, RET, SDHA, SDHB, SDHC, SDHD, SMAD4, STK11, TERT, TP53, TSC1, TSC2, and VHL Loc[facility]er looks at genes related to inherited breast, ovarian, pancreatic, prostate, colon, uterine, kidney, lung, endocrine, and stomach cancer, as well as inherited colon polyp and melanoma syndromes. We discussed that an NGS panel can rarely result in an unexpected finding which may or may not be related to the presenting phenotype. We discussed that [facility] may contact the patient by text or phone call regarding billing. The patient should watch for this communication and respond promptly. The patient should contact [facility] directly with any billing questions (ph. [phone]). Elsa Puentes MS, [facility] [place], Certified Genetic Counselor Called patient to [...] NTHL1, PALB2, PDGFRA, PMS2, POLD1, POLE, POT1, NZGZM1C, PTCH1, PTEN, RAD51C, RAD51D, RB1, RET, SDHA, SDHAF2, SDHB, SDHC, SDHD, SMAD4, SMARCA4, SMARCB1, SMARCE1, STK11, SUFU, SAAS990, TP53, TSC1, TSC2, and VHL The Multi-Cancer panel looks at genes associated with cancers of the breast, gynecologic tract (ovarian, uterine/endometrial), gastrointestinal system (colorectal, gastric, pancreatic), endocrine glands (thyroid, parathyroid, pituitary, adrenal glands), genitourinary tract (renal/urinary tract, prostate), skin (melanoma, basal cell carcinoma), and brain/nervous system. AM CHECKING WITH [facility] ABOUT VARIANT BEFORE PROCEEDING, WILL CONTACT PATIENT WHEN READY TO MOVE FORWARD. Elsa Puentes MS, [facility] [place], Certified Genetic Counselor documented in this encounter [facility] 04-21-2023 Note HNO ID: [id number] Author: ELSA PUENTES LGC Service: ? Author Type: Genetic Counselor Type: Progress Notes Filed: 05/18/2023 16:44 Note Text: [facility] Consultation Note Genetic Counselor: Elsa Puentes MS, [facility] [place] Patient: Lissa Rivas Patient Name and confirmed at initiation of visit. The patient provided consent for a virtual visit by [facility] Queenie. I have communicated my name and active licensure. The patient's identity and physical location were verified at the time of this visit. Either the patient or their legal medical collections representative has been informed of the risks [...] Procedure Laterality Date EYE SURGERY HX 03/2020 MICHAELSid CANCER SURVEILLANCE HISTORY: Mammograms: No Breast MRI's: [...] , descent and paternal ancestors are of [place] descent. There is no Ashkenazi Jew ancestry. [...] We also revi (more content not included)... [facility] 04-21-2023 History of Present illness Narrative Images from the original note were not included. [facility] Consultation Note Genetic Counselor: Elsa Puentes MS, [facility] [place] Patient: Lissa Rivas Patient Name and confirmed at initiation of visit. The patient provided consent for a virtual visit by Rachel Jerome. I have communicated my name and active licensure. The patient's identity and physical location were verified at the time of this visit. Either the patient or their legal medical collections representative has been informed of the risks [...] , descent and paternal ancestors are of [place] descent. There is no Ashkenazi Jew ancestry. [...] extend to insurances such as life insurance, intermodal customer service care, or disability. The patient was seen for a total of 30 minutes, greater than 50% of which was spent [id number] counseling. This plan is being carried out under the oversight of Dr. Annamarie Weiss. This note will also be sent to the referring provider via the electronic medical record. Elsa Puentes MS, [facility] CC: Dr. Fede Weiss documented in this encounter [facility] 04-18-2023 Miscellaneous Notes Lissa Rivas is [...] Kim Khan MD documented in this encounter [facility] 04-07-2023 Consult note Formatting of th [...] Hysteroscopy Laparoscopy OPK (Ovulation Predictor Kit) Ovarian [place] [facility] 10.91 High 01/04/2023 Saline Ultrasound Semen Analysis Ultrasound Abnormal polycystic ovaries, otherwise normal 02/08/2023 Other (See comments) MENSTRUAL HISTORY: Menarche Age: 12 Length of Cycle: Irregular Days: Menstrual Flow: Menstrual Symptoms: Patient's last menstrual period was 03/29/2023 (exact date). PAST MEDICAL HISTORY Diagnosis Date Anxiety Asthma Chlamydia age 16 Chronic fatigue syndrome Generalized anxiety disorder Genital herpes simplex 2020 HSV1, symptoms gentially GERD (gastroesophageal reflux disease) Menorrhagia [...] which included preparing to see the patient, byam-wn-[id number] patient care, counseling and educating the patient/family/caregiver, and ordering medications, tests, or procedures. I have communicated my name and active licensure. The patient's identity and physical location were verified at the time of this visit. Either the patient or their legal medical collections representative has been informed of the risks and benefits of -- and alternatives to -- treatment through a remote evaluation and consents to proceed with the evaluation remotely. Kim Khan MD documented in this encounter [facility] 02-08-2023 History of Present illness Narrative Patient is here for ultrasound. Please see image section in Epic for results. Kim Khan MD documented in this encounter [facility] 02-04-2023 Miscellaneous Notes 21 day progesterone level ordered. Ortega Morrissey APRN.[employer] February 04, 2023 2:12 PM Pt states she has started her letrozole today documented in this encounter [facility] 06-26-2022 Evaluation note Encounter Date Diagnosis [...] May, Other Puncture wound material was printed [facility] Other 01-01-2021 History general Narrative - Reported* Type Description Date Medical History asthma Surgical History laser eye surgery, bilateral Hospitalization History Rash, age 5 [facility] Other Evaluation note* Diagnosis Encounter for fertility testing- Primary Fertility testing [facility] Diagnosis Secondary amenorrhea Absence of menstruation PCOS (polycystic ovarian syndrome) Polycystic ovaries documented in this encounter [facility] note* Diagnosis PCOS (polycystic ovarian syndrome)- Primary Polycystic ovaries Fertility testing documented in this encounter [facility] note* Diagnosis Family history of cancer- Primary Family history of unspecified malignant neoplasm Family history of gene mutation [facility] Diagnosis Family history of breast cancer- Primary Family history of malignant neoplasm of breast Family history of prostate cancer Family history of malignant neoplasm of prostate [facility] Diagnosis Procreative management- Primary Unspecified procreative management [facility] Diagnosis Monoallelic mutation of SDHA gene- Primary Localized enlarged lymph nodes Enlargement of lymph nodes Intra-abdominal and pelvic swelling, mass and lump, unspecified site [facility] Diagnosis Encounter for fertility testing- Primary Fertility testing Pre-procedure lab exam Pre-procedural laboratory examination [facility] testing [facility] Diagnosis Monoallelic mutation of SDHA gene- Primary Obesity, Class III, BMI 40-49.9 (morbid obesity) (HCC) Morbid obesity [facility] Diagnosis Irregular menstrual cycle- Primary PCOS (polycystic ovarian syndrome) Polycystic ovaries [facility] Diagnosis Monoallelic mutation of SDHA gene- Primary [facility] Diagnosis Secondary amenorrhea- Primary Absence of menstruation [facility] Diagnosis Secondary amenorrhea- Primary Absence of menstruation [facility] Diagnosis Screen for sexually transmitted diseases- Primary Screening examination for venereal disease Secondary amenorrhea Absence of menstruation Female infertility Female infertility of unspecified origin [facility] Diagnosis Procreation management investigation and testing- Primary Other investigation and testing for procreative management [facility] Diagnosis Treatment plan provided- Primary [facility] Diagnosis Female infertility Female infertility of unspecified origin [facility] Diagnosis Encounter for artificial insemination- Primary Artificial insemination [facility] Diagnosis Procreation management investigation and testing- Primary Other investigation and testing for procreative management [facility] Diagnosis Procreation management investigation and testing- Primary Other investigation and testing for procreative management Female infertility Female infertility of unspecified origin [facility] Diagnosis Procreation management investigation and testing- Primary Other investigation and testing for procreative management [facility] Diagnosis Procreation management investigation and testing- Primary Other investigation and testing for procreative management [facility] Diagnosis Female infertility Female infertility of unspecified origin [facility] Diagnosis Procreation management investigation and testing- Primary Other investigation and testing for procreative management [facility] Diagnosis Female infertility- Primary Female infertility of unspecified origin [facility] Diagnosis Female infertility- Primary Female infertility of unspecified origin [facility] Diagnosis Encounter for artificial insemination- Primary Artificial insemination [facility] Diagnosis Procreation management investigation and testing- Primary Other investigation and testing for procreative management [facility] Diagnosis Female infertility- Primary Female infertility of unspecified origin [facility] Diagnosis Encounter for gynecological examination without abnormal finding- Primary Screening for malignant neoplasm of cervix Screening for malignant neoplasm of the cervix Desire for BV (bacterial vaginosis) Unspecified vaginitis and vulvovaginitis [facility] Diagnosis Procreation management investigation and testing- Primary Other investigation and testing for procreative management documented in this encounter [facility] note* Diagnosis Female infertility Female infertility of unspecified origin [facility] Diagnosis Female infertility- Primary Female infertility of unspecified origin documented in this encounter [facility] note* Diagnosis Otalgia of both ears- Primary Temporomandibular joint disorder Unspecified temporomandibular joint disorders Chronic allergic rhinitis Postnasal drip documented in this encounter [facility] Work Phone: Evaluation note* Diagnosis Supervision of with history of infertility, first trimester- Primary examination or test, unconfirmed documented in this encounter [facility] note* Diagnosis Encounter for test, result positive- Primary examination or test, positive result documented in this encounter [facility] note* Diagnosis Supervision of with history of infertility, first trimester- Primary [facility]* Diagnosis PCOS (polycystic ovarian syndrome)- Primary Polycystic ovaries [facility] Diagnosis Encounter for supervision of normal first in first trimester Encounter for drug screening [facility] emergency department note* Diagnosis Supervision of with history of infertility, first trimester [facility] Diagnosis Procreation management investigation and testing- Primary Other investigation and testing for procreative management [facility] Diagnosis Missed menses , unspecified gestational age Encounter for supervision of normal first in first trimester 9 weeks gestation of documented in this encounter [facility]* Diagnosis First trimester state, incidental 13 weeks gestation of Urinary tract infection without hematuria, site unspecified documented in this encounter [facility]* Diagnosis Onychomycosis- Primary Dermatophytosis of nail Onychodystrophy Other specified disease of nail Xerosis cutis Other specified disease of sebaceous glands Fissure in skin of both feet documented in this encounter [facility]* Diagnosis Second trimester state, incidental 14 weeks gestation of Spotting in Spotting complicating , unspecified as to episode of care or not applicable documented in this encounter [facility]* Diagnosis Monoallelic mutation of SDHA gene- Primary [facility] Diagnosis Diabetes mellitus screening Screening for diabetes mellitus Second trimester state, incidental 22 weeks gestation of documented in this encounter [facility]* Diagnosis Annual physical exam- Primary Routine general medical examination at a health care facility Hepatic steatosis Other chronic 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 Polycystic ovaries Vitamin D deficiency Palpitations Murmur Undiagnosed cardiac murmurs documented in this encounter [facility]* Diagnosis Second trimester state, incidental 26 weeks gestation of documented in this encounter [facility] noteNo assessment information availableAv[facility] Ctr Work Phone: Reason for referral (narrative)* Diagnostic Procedure Only (Routine) - Pending Review Specialty Diagnoses / Procedures Referred By Blair beltran Referred To Contact XR IMAGING Diagnoses Fertility testing Procedures XR HYSTEROSALPINGOGRAM CATH & SALINE/CONTRAST SONOHYSTER/HYSTEROSALPI Fede Hairston MD [address] [place] [address] [place] [address] Referral ID Status Reason Start Date Expiration Date Visits Requested Visits Authorized [id number] Pending Review Auto-Generat ed Referral 04/18/2023 05/17/2024 1 1 [facility] for referral (narrative)* Diagnostic Procedure Only (Routine) - Pending Review Specialty Diagnoses / Procedures Referred By Contac t Referred To Contact [facility] Diagnoses Female infertility Procedures FOLLICULAR US I US PELVIC NONOBSTETRIC IMAGE JOE LIMITED/F/U Ortega Morrissey APRN.CNM [id number] [place] [address] [place] [id number] Referral ID Status Reason Start Date Expiration Date Visits Requested Visits Authorized [id number] Pending Review Auto-Generat ed Referral 09/10/2023 09/09/2024 1 1 [facility] for referral (narrative)* Diagnostic Procedure Only (Routine) - New Request Specialty Diagnoses / Procedures Referred By Contac t Referred To Contact [facility] Diagnoses Female infertility Procedures FOLLICULAR US I US PELVIC NONOBSTETRIC IMAGE JOE LIMITED/F/U Ortega Morrissey APRN.CNP [id number] [place] [address] [place] [address] [place] [address] Referral ID Status Reason Start Date Expiration Date Visits Requested Visits Authorized [id number] New Request Auto-Generat ed Referral 12/13/2023 12/12/2024 1 1 [facility] for referral (narrative)* Diagnostic Procedure Only (Routine) - New Request Specialty Diagnoses / Procedures Referred By Contac t Referred To Contact [facility] Diagnoses Female infertility Procedures FOLLICULAR US I US PELVIC NONOBSTETRIC IMAGE JOE LIMITED/F/U Ortega Morrissey APRN.CNP [id number] [place] [address] [facility] [address] [place] [address] Referral ID Status Reason Start Date Expiration Date Visits Requested Visits Authorized [id number] New Request Auto-Generat ed Referral 4 02/14/2025 1 1 [facility] for referral (narrative)* Diagnostic Procedure Only (Routine) - Authorized Specialty Diagnoses / Procedures Referred By Contac t Referred To Contact [facility] Diagnoses Supervision of with history of infertility, first trimester Procedures OBSTETRIC ULTRASOUND WHI US PREG UTERUS AFTER 1ST TRIMEST GESTATION Ortega Morrissey APRN.[employer] [address] [place] [address] [facility] [address] [place] [address] Referral ID Status Reason Start Date Expiration Date Visits Requested Visits Authorized [id number] Authorized Auto-Generat ed Referral 4 03/17/2025 1 1 [facility] for visit Narrative* Diagnostic Procedure Only (Routine) - Closed Specialty Diagnoses / Procedures Referred By Contac t Referred To Contact [facility] Diagnoses Supervision of with history of infertility, first trimester Procedures OBSTETRIC ULTRASOUND WHI US PREG UTERUS AFTER 1ST TRIMEST GESTATION Ortega Morrissey APRN.[employer] [place] [address] [place] [address] [facility] [address] [place] [address] Referral ID Status Reason Start Date Expiration Date V isits Requested Visits Authorized [id number] Closed Auto-Generate d Referral 03/17/2024 03/17/2025 1 1 [facility] Summary Purpose Family History Relationship Condition Age at Onset Recorded Date/T lucero father Diabetes mellitus Unknown Heart disease Unknown mother Hypertension Unknown Advance Directives Advance Directive Response Recorded Date/ Time Advance Directives No February 2:57pm Reason for Referral Specialty Diagnoses / Procedures Referred By Contac t Referred To Contact [facility] Diagnoses Female infertility Procedures FOLLICULAR US WHI US PELVIC NONOBSTETRIC IMAGE DCMTN LIMITED/F/U Ortega Morrissey APRN.CNP [address] [place] [address] [facility] [address] [place] [address] Referral ID Status Reason Start Date Expiration Date Visits Requested Visits Authorized [id number] Authorized Benefit Check 11/15/2023 03/28/2024 1 1 Specialty Diagnoses / Procedures Referred By Contac t Referred To Contact Ortega Morrissey, INVENTORY MANAGER.[employer] [address] [place] [address] Referral ID Status Reason Start Date Expiration Date Visits Re quested Visits Authorized [id number] Closed 1 1 Specialty Diagnoses / Procedures Referred By Contac t Referred To Contact Diagnoses Obesity, Class III, BMI 40-49.9 (morbid obesity) (HCC) Procedures ENDOCRINE MEDICAL WEIGHT MANAGEMENT OFFICE/OUTPATIENT [facility] 60 MINUTES Mirta Gallagher MD [address] [place] [address] Referral ID Status Reason Start Date Expiration Date Visits Requested Visits Authorized [id number] Authorized PCP Requested Referral 08/17/2023 08/16/2024 1 1 Specialty Diagnoses / Procedures Referred By Contac t Referred To Contact CT IMAGING Diagnoses Intra-abdominal and pelvic swelling, mass and lump, unspecified site Procedures CT ABDOMEN W IVCON CT ABDOMEN W/CONTRAST Мария Laboy MD [address] [place] [address] [place] [address] Referral ID Status Reason Start Date Expiration Date Visits Requested Visits Authorized [id number] Pending Review Auto-Generat ed Referral 06/16/2023 07/15/2024 1 1 Specialty Diagnoses / Procedures Referred By Contac t Referred To Contact CT IMAGING Diagnoses Localized enlarged lymph nodes Procedures CT CHEST W IVCON DIAGNOSTIC COMPUTED TOMOGRAPHY THORAX W/CONTRAST Мария Laboy MD [address] [place] [address] [place] [address] Referral ID Status Reason Start Date Expiration Date Visits Requested Visits Authorized [id number] Pending Review Auto-Generat ed Referral 06/16/2023 07/15/2024 1 1 Specialty Diagnoses / Procedures Referred By Contac t Referred To Contact CT IMAGING Diagnoses Localized enlarged lymph nodes Procedures CT NECK SOFT TISSUE W IVCON CT SOFT TISSUE NECK W/CONTRAST MATERIAL Мария Laboy MD [address] [place] [address] [address] [facility] [place] [address] Referral ID Status Reason Start Date Expiration Date Visits Requested Visits Authorized [id number] Pending Review Auto-Generat ed Referral 06/16/2023 07/15/2024 1 1 Chief Complaint and Reason for Visit Chief Complaint Admit Date R00.2 R01.1 August 24, 2024 12:14 pm Additional Source Comments INFORMATION SOURCE (unrecogn ized section and content) DATE CREATED AUTHOR 12/06/2019 [facility] DATE CREATED AUTHOR AUTHOR'S ORGANIZ ATION 07/24/2023 [facility] DATE CREATED AUTHOR AUTHOR'S ORGANIZ ATION 02/25/2024 [facility] DATE CREATED AUTHOR AUTHOR'S ORGANIZ ATION 03/11/2024 [facility] DATE CREATED AUTHOR AUTHOR'S ORGANIZ ATION 03/11/2024 [facility] DATE CREATED AUTHOR AUTHOR'S ORGANIZ ATION 04/09/2024 [facility] DATE CREATED AUTHOR AUTHOR'S ORGANIZ ATION 08/22/2024 [facility] dical Specialists EPIC REASON FOR VISIT (unrecogniz ed section and content) Reason Comments Infertility Specialty Diagnoses / Procedures [facility] To [facility] Diagnoses Female infertility Procedures FOLLICULAR US WHI US PELVIC NONOBSTETRIC IMAGE DCMTN LIMITED/F/U Ortega Morrissey, INVENTORY MANAGER.[employer] [address] [place] [address] [place] [id number] [place] [address] Referral ID Status Reason Start Date Expiration Date V isits Requested Visits Authorized [id number] Closed Benefit Check 02/16/2024 03/28/2024 1 1 Reason Comments started letrozole Specialty Diagnoses / Procedures [facility] To [facility] Diagnoses Secondary amenorrhea PCOS (polycystic ovarian syndrome) Procedures PELVIC US WHI US PELVIC NONOBSTETRIC REAL-TIME IMAGE COMPLETE Fede Hairston MD [address] [place] [address] [facility] [address] [place] [address] Referral ID Status Reason Start Date Expiration Date V isits Requested Visits Authorized [id number] Closed Benefit Check 01/21/2023 03/28/2023 1 1 Reason Comments Follow Up Reason Comments Follow Up Reason Comments Appointment Reason Comments refill letrozol/cycle to start in next [place] Reason Comments Order Manager - Other Hereditary Para ganglioma-Pheochromocytoma Syndrome clinic Reason Comments Results Genetic Reason Comments Nurse Visit Specialty Diagnoses / Procedures Referred By Blair beltran Referred To Contact XR IMAGING Diagnoses Fertility testing Procedures XR HYSTEROSALPINGOGRAM CATH & SALINE/CONTRAST SONOHYSTER/HYSTEROSALPI HYSTEROSALPINGOGRAPHY RS&I URINE TEST Fede Hairston MD [address] [place] [address] [place] [address] Referral ID Status Reason Start Date Expiration Date V isits Requested Visits Authorized [id number] Closed Benefit Check 07/19/2023 03/28/2024 1 1 Reason Comments paraganglioma Reason Comments New Patient SHDA ref by Fina Tate Reason Comments lmp 07/23 no cycle since then Reason Comments Patient Question Reason Comments Treatment Planning Reason Comments Ortega lmp today/re us day 11-13 for iui Reason Comments trigger shot Specialty Diagnoses / Procedures Referred By Blair beltran Referred To Contact [facility] Diagnoses Female infertility Procedures FOLLICULAR US WHI US PELVIC NONOBSTETRIC IMAGE DCMTN LIMITED/F/U Ortega Morrissey, DEBBIE.T[employer] [address] [place] [address] [facility] [address] [place] [address] Referral ID Status Reason Start Date Expiration Date Visits Re quested Visits Authorized [id number] Closed 09/14/2023 03/28/2024 1 1 Specialty Diagnoses / Procedures Referred By Blair beltran Referred To Contact [facility] Diagnoses Encounter for other procreative management Procedures ARTIFIC INSEMINATION INTRAUTERIN Ortega Morrissey APRN.[employer] [address] [place] [address] Ortega Morrissey APRN.[employer] [address] [place] [address] Referral ID Status Reason Start Date Expiration Date V isits Requested Visits Authorized [id number] Closed Benefit Check 09/17/2023 03/16/2024 1 1 Reason Comments iui 10/25 , cd 1 11/11 Reason Comments Treatment Planning Referral ID Status Reason Start Date Expiration Date V isits Requested Visits Authorized [id number] Closed Benefit Check 11/15/2023 03/28/2024 1 1 Specialty Diagnoses / Procedures Referred By Blair beltran Referred To Contact LABORATORY MEDICINE Diagnoses Encounter for other procreative management Procedures ARTIFIC INSEMINATION INTRAUTERIN Deshawn Riojas MD [address] [place] [address] [facility] [address] [place] [address] Referral ID Status Reason Start Date Expiration Date V isits Requested Visits Authorized [id number] Closed Financial Clearance Required - Self Pay 11/27/2023 02/25/2024 1 1 Reason Comments LMP 12/12/23/ set up monitored cycle Patient Update Referral ID Status Reason Start Date Expiration Date V isits Requested Visits Authorized [id number] Closed Benefit Check 12/15/2023 03/28/2024 1 1 Reason Comments IUI Specialty Diagnoses / Procedures Referred By Blair beltran Referred To Contact [facility] Diagnoses Encounter for other procreative management Female infertility, unspecified Procedures ARTIFIC INSEMINATION INTRAUTERIN Self Whi Gayathri [facility] [address] [place] [address] Referral ID Status Reason Start Date Expiration Date Visits Requested Visits Authorized [id number] Authorized Benefit Check 09/15/2023 03/16/2024 2 2 [...] Visit Reason Comments Toenail Problem 29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 [...] prosecute any alcohol or drug abuse patient.[facility] the event this information is protected by the Federal Confidentiality of Alcohol and Drug Abuse Patient Records regulations: The Federal rules restrict any use of the information to criminally investigate or prosecute any alcohol or drug abuse patient.[facility] the event this information is protected by the Federal Confidentiality of Alcohol and Drug Abuse Patient Records regulations: The Federal rules restrict any use of the information to criminally investigate or prosecute any alcohol or drug abuse patient.[facility] the event this information is protected by the Federal Confidentiality of Alcohol and Drug Abuse Patient Records regulations: The Federal rules restrict any use of the information to criminally investigate or prosecute any alcohol or drug abuse patient.[facility] the event this information is protected by the Federal Confidentiality of Alcohol and Drug Abuse Patient Records regulations: The Federal rules restrict any use of the information to criminally investigate or prosecute any alcohol or drug abuse patient.[facility] the event this information is protected by the Federal Confidentiality of Alcohol and Drug Abuse Patient Records regulations: The Federal rules restrict any use of the information to criminally investigate or prosecute any alcohol or drug abuse patient.[facility] the event this information is protected by the Federal Confidentiality of Alcohol and Drug Abuse Patient Records regulations: The Federal rules restrict any use of the information to criminally investigate or prosecute any alcohol or drug abuse patient.[facility] the event this information is protected by the Federal Confidentiality of Alcohol and Drug Abuse Patient Records regulations: The Federal rules restrict any use of the information to criminally investigate or prosecute any alcohol or drug abuse patient.[facility] the event this information is protected by the Federal Confidentiality of Alcohol and Drug Abuse Patient Records regulations: The Federal rules restrict any use of the information to criminally investigate or prosecute any alcohol or drug abuse patient.[facility] the event this information is protected by the Federal Confidentiality of Alcohol and Drug Abuse Patient Records regulations: The Federal rules restrict any use of the information to criminally investigate or prosecute any alcohol or drug abuse patient.[facility] the event this information is protected by the Federal Confidentiality of Alcohol and Drug Abuse Patient Records regulations: The Federal rules restrict any use of the information to criminally investigate or prosecute any alcohol or drug abuse patient.[facility] the event this information is protected by the Federal Confidentiality of Alcohol and Drug Abuse Patient Records regulations: The Federal rules restrict any use of the information to criminally investigate or prosecute any alcohol or drug abuse patient.[facility] the event this information is protected by the Federal Confidentiality of Alcohol and Drug Abuse Patient Records regulations: The Federal rules restrict any use of the information to criminally investigate or prosecute any alcohol or drug abuse patient.[facility] the event this information is protected by the Federal Confidentiality of Alcohol and Drug Abuse Patient Records regulations: The Federal rules restrict any use of the information to criminally investigate or prosecute any alcohol or drug abuse patient.[facility] the event this information is protected by the Federal Confidentiality of Alcohol and Drug Abuse Patient Records regulations: The Federal rules restrict any use of the information to criminally investigate or prosecute any alcohol or drug abuse patient.[facility] the event this information is protected by the Federal Confidentiality of Alcohol and Drug Abuse Patient Records regulations: The Federal rules restrict any use of the information to criminally investigate or prosecute any alcohol or drug abuse patient.[facility] the event this information is protected by the Federal Confidentiality of Alcohol and Drug Abuse Patient Records regulations: The Federal rules restrict any use of the information to criminally investigate or prosecute any alcohol or drug abuse patient.[facility] the event this information is protected by the Federal Confidentiality of Alcohol and Drug Abuse Patient Records regulations: The Federal rules restrict any use of the information to criminally investigate or prosecute any alcohol or drug abuse patient.[facility] the event this information is protected by the Federal Confidentiality of Alcohol and Drug Abuse Patient Records regulations: The Federal rules restrict any use of the information to criminally investigate or prosecute any alcohol or drug abuse patient.[facility]In the event this information is protected by the Federal Confidentiality of Alcohol and Drug Abuse Patient Records regulations: The Federal rules restrict any use of the information to criminally investigate or prosecute any alcohol or drug abuse patient.[facility] the event this information is protected by the Federal Confidentiality of Alcohol and Drug Abuse Patient Records regulations: The Federal rules restrict any use of the information to criminally investigate or prosecute any alcohol or drug abuse patient.[facility] the event this information is protected by the Federal Confidentiality of Alcohol and Drug Abuse Patient Records regulations: The Federal rules restrict any use of the information to criminally investigate or prosecute any alcohol or drug abuse patient.[facility] HospitalIn the event this information is protected by the Federal Confidentiality of Alcohol and Drug Abuse Patient Records regulations: The Federal rules restrict any use of the information to criminally investigate or prosecute any alcohol or drug abuse patient.[facility] the event this information is protected by the Federal Confidentiality of Alcohol and Drug Abuse Patient Records regulations: The Federal rules restrict any use of the information to criminally investigate or prosecute any alcohol or drug abuse patient.[facility]In the event this information is protected by the Federal Confidentiality of Alcohol and Drug Abuse Patient Records regulations: The Federal rules restrict any use of the information to criminally investigate or prosecute any alcohol or drug abuse patient.[facility] HospitalIn the event this information is protected by the Federal Confidentiality of Alcohol and Drug Abuse Patient Records regulations: The Federal rules restrict any use of the information to criminally investigate or prosecute any alcohol or drug abuse patient.[facility]In the event this information is protected by the Federal Confidentiality of Alcohol and Drug Abuse Patient Records regulations: The Federal rules restrict any use of the information to criminally investigate or prosecute any alcohol or drug abuse patient.[facility] HospitalIn the event this information is protected by the Federal Confidentiality of Alcohol and Drug Abuse Patient Records regulations: The Federal rules restrict any use of the information to criminally investigate or prosecute any alcohol or drug abuse patient.[facility] HospitalIn the event this information is protected by the Federal Confidentiality of Alcohol and Drug Abuse Patient Records regulations: The Federal rules restrict any use of the information to criminally investigate or prosecute any alcohol or drug abuse patient.[facility] HospitalIn the event this information is protected by the Federal Confidentiality of Alcohol and Drug Abuse Patient Records regulations: The Federal rules restrict any use of the information to criminally investigate or prosecute any alcohol or drug abuse patient.[facility]In the event this information is protected by the Federal Confidentiality of Alcohol and Drug Abuse Patient Records regulations: The Federal rules restrict any use of the information to criminally investigate or prosecute any alcohol or drug abuse patient.[facility]In the event this information is protected by the Federal Confidentiality of Alcohol and Drug Abuse Patient Records regulations: The Federal rules restrict any use of the information to criminally investigate or prosecute any alcohol or drug abuse patient.[facility]In the event this information is protected by the Federal Confidentiality of Alcohol and Drug Abuse Patient Records regulations: The Federal rules restrict any use of the information to criminally investigate or prosecute any alcohol or drug abuse patient.[facility]In the event this information is protected by the Federal Confidentiality of Alcohol and Drug Abuse Patient Records regulations: The Federal rules restrict any use of the information to criminally investigate or prosecute any alcohol or drug abuse patient.[facility] HospitalIn the event this information is protected by the Federal Confidentiality of Alcohol and Drug Abuse Patient Records regulations: The Federal rules restrict any use of the information to criminally investigate or prosecute any alcohol or drug abuse patient.[facility] HospitalIn the event this information is protected by the Federal Confidentiality of Alcohol and Drug Abuse Patient Records regulations: The Federal rules restrict any use of the information to criminally investigate or prosecute any alcohol or drug abuse patient.[facility] Hospital[facility] the event this information is protected by the Federal Confidentiality of Alcohol and Drug Abuse Patient Records regulations: The Federal rules restrict any use of the information to criminally investigate or prosecute any alcohol or drug abuse patient.[facility] HospitalIn the event this information is protected by the Federal Confidentiality of Alcohol and Drug Abuse Patient Records regulations: The Federal rules restrict any use of the information to criminally investigate or prosecute any alcohol or drug abuse patient.[facility] HospitalIn the event this information is protected by the Federal Confidentiality of Alcohol and Drug Abuse Patient Records regulations: The Federal rules restrict any use of the information to criminally investigate or prosecute any alcohol or drug abuse patient.[facility] HospitalIn the event this information is protected by the Federal Confidentiality of Alcohol and Drug Abuse Patient Records regulations: The Federal rules restrict any use of the information to criminally investigate or prosecute any alcohol or drug abuse patient.[facility] HospitalIn the event this information is protected by the Federal Confidentiality of Alcohol and Drug Abuse Patient Records regulations: The Federal rules restrict any use of the information to criminally investigate or prosecute any alcohol or drug abuse patient.[facility] HospitalIn the event this information is protected by the Federal Confidentiality of Alcohol and Drug Abuse Patient Records regulations: The Federal rules restrict any use of the information to criminally investigate or prosecute any alcohol or drug abuse patient.[facility] HospitalIn the event this information is protected by the Federal Confidentiality of Alcohol and Drug Abuse Patient Records regulations: The Federal rules restrict any use of the information to criminally investigate or prosecute any alcohol or drug abuse patient.[facility] HospitalIn the event this information is protected by the Federal Confidentiality of Alcohol and Drug Abuse Patient Records regulations: The Federal rules restrict any use of the information to criminally investigate or prosecute any alcohol or drug abuse patient.[facility] HospitalIn the event this information is protected by the Federal Confidentiality of Alcohol and Drug Abuse Patient Records regulations: The Federal rules restrict any use of the information to criminally investigate or prosecute any alcohol or drug abuse patient.[facility] HospitalIn the event this information is protected by the Federal Confidentiality of Alcohol and Drug Abuse Patient Records regulations: The Federal rules restrict any use of the information to criminally investigate or prosecute any alcohol or drug abuse patient.[facility] HospitalIn the event this information is protected by the Federal Confidentiality of Alcohol and Drug Abuse Patient Records regulations: The Federal rules restrict any use of the information to criminally investigate or prosecute any alcohol or drug abuse patient.[facility] Care Teams (unrecognized sec tion and content) Provider Relations Coordinator Relationship Specialty Start Date End Date Robles Goldsmith DO [address] [place] [address] Referring Obstetrics 10/13/22 Provider Relations Coordinator Relationship Specialty Start Date End Date Robles Goldsmith DO [address] [place] [address] Referring Obstetrics 10/13/22 Provider Relations Coordinator Relationship Specialty Start Date End Date Robles Goldsmith, [address] [place] [address] Referring Obstetrics 10/13/22 Provider Relations Coordinator Relationship Specialty Start Date End Date Robles Goldsmith, [address] [place] [address] Referring Obstetrics 10/13/22 Provider Relations Coordinator Relationship Specialty Start Date End Date Robles Goldsmith, DO [address] [place] [address] Referring Obstetrics 10/13/22 Provider Relations Coordinator Relationship Specialty Start Date End Date Robles Goldsmith, [address] [place] [address] Referring Obstetrics 10/13/22 Provider Relations Coordinator Relationship Specialty Start Date End Date Robles Goldsmith, [address] [place] [address] Referring Obstetrics 10/13/22 Provider Relations Coordinator Relationship Specialty Start Date End Date Robles Goldsmith, [address] [place] [address] Referring Obstetrics 10/13/22 Provider Relations Coordinator Relationship Specialty Start Date End Date Robles Goldsmith, [address] [place] [address] Referring Obstetrics 10/13/22 Provider Relations Coordinator Relationship Specialty Start Date End Date Robles Goldsmith, [address] [place] [address] Referring Obstetrics 10/13/22 Provider Relations Coordinator Relationship Specialty Start Date End Date Robles Goldsmith, DO [address] [place] [address] Referring Obstetrics 10/13/22 Provider Relations Coordinator Relationship Specialty Start Date End Date Robles Goldsmith, DO [address] [place] [address] Referring Obstetrics 10/13/22 Provider Relations Coordinator Relationship Specialty Start Date End Date Robles Goldsmith, DO [address] [place] [address] Referring Obstetrics 10/13/22 Provider Relations Coordinator Relationship Specialty Start Date End Date Robles Goldsmith, DO [address] [place] [address] Referring Obstetrics 10/13/22 Provider Relations Coordinator Relationship Specialty Start Date End Date Robles Goldsmith, DO [address] [place] [address] Referring Obstetrics 10/13/22 Provider Relations Coordinator Relationship Specialty Start Date End Date Robles Goldsmith, DO [address] [place] [address] Referring Obstetrics 10/13/22 Provider Relations Coordinator Relationship Specialty Start Date End Date Robles Goldsmith, DO [address] [place] [address] Referring Obstetrics 10/13/22 Provider Relations Coordinator Relationship Specialty Start Date End Date Robles Goldsmith DO [address] [place] [address] Referring Obstetrics 10/13/22 Provider Relations Coordinator Relationship Specialty Start Date End Date Robles Goldsmith DO [address] [place] [address] Referring Obstetrics 10/13/22 Provider Relations Coordinator Relationship Specialty Start Date End Date Lito Velazquez MD [address] [place] [address] PCP - General Internal Medicine 10/05/22 Provider Relations Coordinator Relationship Specialty Start Date End Date Lito Velazquez MD [address] [place] [address] PCP - General Internal Medicine 10/05/22 Provider Relations Coordinator Relationship Specialty Start Date End Date Lito Velazquez MD [facility] [address] [place] [phone] PCP - General Internal Medicine 02/14/24 Provider Relations Coordinator Relationship Specialty Start Date End Date Robles Goldsmith, [address] [place] [address] Referring Obstetrics 10/13/22 Provider Relations Coordinator Relationship Specialty Start Date End Date Lito Velazquez MD [address] [place], [place] [id number] PCP - General Internal Medicine 10/05/22 Provider Relations Coordinator Relationship Specialty Start Date End Date Robles Goldsmith DO [address] [place] [address] Referring Obstetrics 10/13/22 Provider Relations Coordinator Relationship Specialty Start Date End Date Lito Velazquez MD [address] [place] [address] PCP - General Internal Medicine 10/05/22 Provider Relations Coordinator Relationship Specialty Start Date End Date Lito Velazquez MD [address] [place] [address] PCP - General Internal Medicine 10/05/22 Provider Relations Coordinator Relationship Specialty Start Date End Date Lito Velazquez MD [address] [place] [address] PCP - General Internal Medicine 10/05/22 Provider Relations Coordinator Relationship Specialty Start Date End Date Lito Velazquez MD [address] [place] [address] PCP - General Internal Medicine 10/05/22 Provider Relations Coordinator Relationship Specialty Start Date End Date Lito Velazquez MD [address] [place] [address] PCP - General Internal Medicine 10/05/22 Provider Relations Coordinator Relationship Specialty Start Date End Date Robles Goldsmith DO [address] [place] [address] Referring Obstetrics 10/13/22 [place] [address] [place] [address] Registered Nurse 04/12/24 Provider Relations Coordinator Relationship Specialty Start Date End Date Lito Velazquez MD [address] [place] [address] PCP - General Internal Medicine 10/05/22 Provider Relations Coordinator Relationship Specialty Start Date End Date Lito Velazquez MD [address] [place] [address] PCP - General Internal Medicine 10/05/22 Provider Relations Coordinator Relationship Specialty Start Date End Date Lito Velazquez MD [address] [place] [address] PCP - General Internal Medicine 10/05/22 Provider Relations Coordinator Relationship Specialty Start Date End Date Lito Velazquez MD [address] [place] [address] PCP - General Internal Medicine 10/05/22 Team Status: Active Member Role Status Sean Velazquez MD Primary Care Provider Active Team Status: Inactive Member Role Status Sean Velazquez MD Primary Care Provider Active St art: August 24, 2024 End: August 24, 2024 Jaime Mccarthy , RN MSN ANP-C Attending Provider Act tucker Start: August 24, 2024 End: August 24, 2024 Goals (unrecognized section and content) Goals may be documented in a n alternate section FOR RECORDS PERTAINING TO PATIENTS WHO ARE [...] BE BASED ON THE PRIMARY CLINICAL RECORDS. [facility]. provides no warranty or guarantee of the accuracy or completeness of information in this document.
[2024-08-25 23:01] LABS: Amnisure NEGATIVE (NEGATIVE); Internal Control Within Normal Limits
== END 2024-08-25 23:20 | disposition home or self-care (01) ==
PROVIDERS: Admitting Provider Obstetrics & Gynecology Gynecology; PCP Internal Medicine; Visit Provider Obstetrics & Gynecology Gynecology
DX: O26.892 Other specified pregnancy related conditions, second trimester (principal); Z3A.27 27 weeks gestation of pregnancy
CPT/HCPCS: 59025; 84112; G0378; G0379

== ENCOUNTER 2024-09-04 07:34 | Outpatient (RCR) | payer OTHER, SELFPAY ==
[2024-09-04 11:20] VITALS: BP 123/78; PULSE 94; TEMP 36.4; O2SAT 97
[2024-09-04] MEDS: RHO(D) IMMUNE GLOBULIN 1,500 UNIT SYRINGE 1500 UNIT IM (11:20)
== END 2024-09-05 07:34 | disposition home or self-care (01) ==
LOC: INF 07:34
PROVIDERS: PCP Internal Medicine; Visit Provider Obstetrics & Gynecology
DX: O26.893 Other specified pregnancy related conditions, third trimester (principal); Z67.91 Unspecified blood type, Rh negative; Z3A.00 Weeks of gestation of pregnancy not specified
CPT/HCPCS: 36415; 86850; 86900; 86901; 96372; J2791

== ENCOUNTER 2024-09-12 16:28 | Observation (INO) | payer OTHER, SELFPAY ==
--- OUTSIDE RECORDS SUMMARY | 2024-08-30 11:20 | XMS_ITS | Encounter Summary ---
Author Organization [facility] Address [address] [place] [address] Care Team Providers Care Ed Physicians Name Role Phone Omer Velazquez MD Primary Care Provider [phone] Encounter Details Date Type Department Care Team (Late st Contact Info) Description 08/30/2024 11:20 AM EDT Routine [facility] [address] [place] [address] Saravanan Ahumada, DO [address] [place] [address] 28 weeks gestation of ([facility]); Third trimester ([facility]); Gestational diabetes mellitus (GDM), antepartum, gestational diabetes method of control unspecified ([facility]); Herpes simplex virus type 1 (HSV-1) dermatitis Social History Tobacco Use Types Packs/Day Years [...] Sign Reading Time Taken Comments Blood Pressure 116/76 08/30/2024 11:46 AM EDT Pulse - - Temperature - - Respiratory Rate - - Oxygen Saturation - - Inhaled Oxygen Concentration - - Weight 101 kg (222 lb 6.4 oz) 08/30/2024 11:46 A M EDT Height - - Body Mass Index 39.4 07/18/2024 9:20 AM EDT documented in this encounter Progress Notes * Kayla Ashley LPN - 08/30/2024 11:20 AM EDT Reason for Appointment: Patient ID: Lissa Rivas is a 29 y.o. female who presents for No chief complaint on file. Patient presents today for Return OB appointment. MEDICATIONS Current Outpatient Medications Medication Instructions albuterol HFA (Ventolin HFA) 90 mcg/act inhaler 2 puffs, Inhalation, Every 6 hours PRN Alcohol Swabs (Alcohol Prep Pad) 70 % pads 1 Pad, Topical, Daily, Use four times daily to check FSBS. ammonium lactate (Amlactin) 12 % cream Topical, Daily Blood Glucose Monitoring Suppl (D-Care Glucometer) w/Device kit 1 kit, Does not apply, Daily, Use four times daily to check FSBS. In the morning prior to breakfast & 1 hour after each meal for atotal of 4times daily. cholecalciferol (Vitamin D-3) 50 MCG (1999) tablet 2 tablets, Daily Glucose Blood (Blood Glucose Test) strip 1 strip, In Vitro, Daily, Use in the morning prior to breakfast, 1 hour after each meal for a total of 4times daily. Lancets Ultra Thin misc 1 each, In Vitro, Daily, Use to check FSBS four times daily MV-Min-Fe Fum-FA-DHA ( 1 PO) Take by [...] nursing note reviewed. Exam conducted with a sanitary aide present. Vitals: Estimated body mass index is 39.4 kg/m?? as calculated from the following: Height as of 07/18/24: 5' 3 . Weight as of this encounter: 222 lb 6.4 oz. BP: 116/76 Patient's last menstrual period was 02/13/2024 (approximate). ASSESSMENT & PLAN ICD-10-CM 1. 28 weeks gestation of Z3A.28 2. Third trimester Z34.93 3. Gestational diabetes mellitus (GDM), antepartum, gestational diabetes method of control unspecified O24.419 US OB follow up transabdominal approach Return OB: Patient presents today for a routine obstetrics appointment. Patient is currently 28w3d . Patient states she is doing well but has complaints of being tired due to current . Patient has verbalizes frequent movement. labor precautions was discussed/given and patient was instructed to perform kick counts three times a day. Pt sees MFM on 08/31/24, for diabetic ed and testing. Pt given growth ultrasound orders to have scheduled. Orders Placed This Encounter Procedures US OB follow up transabdominal approach Follow Up: Patient is to return to office in 2 week for routine OB appointment. Documented by Kayla Ashley LPN on behalf of: Saravanan Ahumada DO documented in this encounter Plan of Treatment Upcoming Encounters Date Type Department Care Team (Late st Contact Info) Description 09/13/2024 11:30 AM EDT Routine [facility] [address] [place] [phone] Saravanan Ahumada DO [address] [place] [address] 07/24/2025 9:15 AM EDT Office Visit [facility] [address] [place] [address] Scheduled Orders Name Type Priority Associated Diagnoses Orde r Schedule US OB follow up transabdominal approach Imaging Routine Gestational diabetes mellitus (GDM), antepartum, gestational diabetes method of control unspecified ([facility]) [id number] for 8 Occurrences starting 08/30/2024 until 03/01/2025, 1 completed documented as of this encounter Goals Goal Patient Goal Type Associated Problems Recent Progress Patient-Stated? Author Reminders Care Plan OB Reminders No Open Scheduling, Background documented as of this encounter Results * US OB follow up transabdominal approach (09/06/2024 1:55 PM EDT) Anatomical Region Laterality Modality Body Ultrasound 09/08/2024 10:2 4 AM EDT Narrative 09/08/2024 10:24 AM EDT EXAM: US OB FOLLOW UP TRANSABDOMINAL APPROACH HISTORY: Gestational diabetes. COMPARISON: Ob ultrasound 07/05/2024. TECHNIQUE: Two-dimensional transabdominal grayscale ultrasound imaging of the pelvis was performed. FINDINGS: Gestation: Single Presentation: Cephalic Cardiac Activity: 161 beats per minute Amniotic Fluid Index: 17.3 cm MEASUREMENTS: BPD: 7.4 cm EGA: 29 weeks 6 days HC: 26.6 cm EGA: 28 weeks 6 days AC: 25.3 cm EGA: 29 weeks 4 days FL: 5.6 cm EGA: 29 weeks 4 days HC/AC Ratio: 1.05 The gestational age by today's ultrasound is 29 weeks 3 days (+/- 14 days gestation). Estimated Weight: 1399 grams, +/- 210 grams ( 3 lb 1 oz). Weight Percentile for gestational age: 38 % IMPRESSION: 1. Single, live intrauterine gestation 29 weeks, 3 days by LMP. Today's ultrasound measurements correlate with a gestational age of 29 weeks 3 days. Estimated weight is 1399 grams, +/- 210 grams ( 3 lb 1 oz) which correlates to 38 %. KERA is 11/19/2024. Interpreted by: Electronically signed by ALYSA WALKER II, MD, PHD at 08-Sep-2024 10:22:30 AM [facility] Procedure Note Alysa Walker MD - 09/08/2024 EXAM: US OB FOLLOW UP TRANSABDOMINAL APPROACH HISTORY: Gestational diabetes. COMPARISON: Ob ultrasound 07/05/2024. TECHNIQUE: Two-dimensional transabdominal grayscale ultrasound imaging ofthe pelvis was performed. FINDINGS: Gestation: Single Presentation: Cephalic Cardiac Activity: 161 beats per minute Amniotic Fluid Index: 17.3 cm MEASUREMENTS: BPD: 7.4 cm EGA: 29 weeks 6 days HC: 26.6 cm EGA: 28 weeks 6 days AC: 25.3 cm EGA: 29 weeks 4 days FL: 5.6 cm EGA: 29 weeks 4 days HC/AC Ratio: 1.05 The gestational age by today's ultrasound is 29 weeks 3 days (+/- 14 daysgestation). Estimated Weight: 1399 grams, +/- 210 grams ( 3 lb 1 oz). Weight Percentile for gestational age: 38 % IMPRESSION: 1. Single, live intrauterine gestation 29 weeks, 3 days by LMP. Today'sultrasound measurements correlate with a gestational age of 29 weeks 3days. Estimated weight is 1399 grams, +/- 210 grams ( 3 lb 1 oz)which correlates to 38 %. KERA is 11/19/2024. Interpreted by: Electronically signed by ALYSA WALKER II, MD, PHD [id number] 10:22:30 AM [facility] us Saravanan Ahumada DO [facility] [place] US PROCEDURES Final Resul t documented in this encounter Visit Diagnoses Diagnosis 28 weeks gestation of ([facility]) Third trimester ([facility]) state, incidental Gestational diabetes mellitus (GDM), antepartum, gestational diabetes method of control unspecified ([facility]) Herpes simplex virus type 1 (HSV-1) dermatitis Gestational diabetes mellitus (GDM), antepartum, gestational diabetes method of control unspecified ([facility]) documented in this encounter Additional Health Concerns Active Problems Noted Date Diagnosed Date OB Reminders 04/30/2024 documented as of this encounter Care Teams Ed Physicians Relationship Specialty Start Date End Date Omer Velazquez MD [address] [place] [address] PCP - General Internal Medicine 10/05/22 documented as of this encounter
--- OUTSIDE RECORDS SUMMARY | 2024-08-31 13:30 | XMS_ITS | Encounter Summary ---
Author Organization [facility] [employer] [facility] tem Address [id number] [address] [place] [address] Care Team Providers Care Foundry Superintendant Name Role Phone Unavailable Primary Care Provider Unavailabl e Reason for Visit * Reason Comments Elevated Glucose Tolerance Test * Consultation (Routine) - Pending Review Specialty Diagnoses / Procedures Referred By Contac t Referred To Contact Maternal and Medicine Diagnoses Gestational diabetes mellitus (GDM) in third trimester, gestational diabetes method of control unspecified Saravanan Ahumada R, DO [address] [place] [address] [place] [address] Phone: tel: fax: Maternal- Medicine at [facility] [address] [place] [address] Phone: tel: fax: Referral ID Status Reason Start Date Expiration Date Visits Requested Visits Authorized [id number] Pending Review Specialty Services Required 08/29/2024 08/29/2025 1 1 Encounter Details Date Type Department Care Team (Late st Contact Info) Description 08/31/2024 1:30 PM EDT Support Visit Maternal- Medicine at [facility] [address] [place] [phone] Cristiana Zuñiga RN [address] [id number] Nereyda Bishop LD [address] [place] [address] Gestational diabetes mellitus (GDM) in third trimester, gestational diabetes method of control unspecified (Primary Dx) Social History Tobacco Use Types Packs/Day Years Used Date Smoking Tobacco: Never Smokeless Tobacco: Never Alcohol Use Standard Drinks/Week Comments Not Currently 0 (1 standard drink = 0.6 oz pur e alcohol) Estimated Date of Delivery Comme nts Yes 11/19/2024 Based on last me nstrual period of 02/13/2024 Sex and Gender Information Value Date Recorded Sex Assigned at Not on file Legal Sex Female 1:21 PM EDT Gender Identity Not on file Sexual Orientation Not on file documented as of this encounter Last Filed Vital Signs Vital Sign Reading Time Taken Comments Blood Pressure - - Pulse - - Temperature - - Respiratory Rate - - Oxygen Saturation - - Inhaled Oxygen Concentration - - Weight 101.2 kg (223 lb) 08/31/2024 3:22 PM EDT Height 160 cm (5' 3 ) 08/31/2024 3:22 PM EDT Body Mass Index 39.5 08/31/2024 3:22 PM EDT documented in this encounter Miscellaneous Notes * Group Note - MUNIRA Torres - 08/31/2024 1:30 PM EDT Patient: Lissa Rivas Date: 08/31/2024 There were no vitals filed for this visit. Patient present for diabetes education group class per doctor order secondary to diagnosis of GDM and/or abnormal glucose tolerance. Food recall suggests patient typically consumes a balanced diet ofmainly healthy choices. Lissa has been limiting carbohydrates since she found out about her elevated blood sugars. Pt has gained 5 # to date. Weight gain goal is 11-20 pounds. Pt appears willing to make behavioral changes. Nutrition diagnosis: inconsistent carbohydrate intake as evidenced by food log related to lack of nutrition knowledge. Instructed pt on a 1900 kcal meal plan of 3 meals and 2-3 snacks, carbohydrate counting, label reading, dining out, and portion control. Energy content of meal plan to be adjusted based on patient's blood glucose control and weight gain/loss. Discussed foods rich in iron and calcium. Encouraged pt to measure carbohydrates for 2 days and record two day's worth of food logs. Pt was attentive and asking questions. To email 2 day food log and blood glucoses to [email or web address] every Wednesday night/Wednesday morning. Please refer to health habits for other goals. Breakfast 10 AM 15-25 grams of CHO, Lunch 2 PM 45 grams of CHO, Snack 4:30 PM 15-30 grams of CHO, Dinner 7 PM 45 grams of CHO, HS Snack 8:30 PM 15-30 grams of CHO. Face to face time was 82 minutes. documented in this encounter Plan of Treatment Upcoming Encounters Date Type Department Care Team (Late st Contact Info) Description 09/20/2024 11:00 AM EDT Telemedicine Maternal- Medicine at [facility] [address] [place] [phone] Siria Rebolledo, [facility] [address] [place] [address] 10/16/2024 2:00 PM EDT Office Visit Maternal- Medicine at [facility] [address] [place] [phone] Vy Pemberton MD [address] [address] documented as of this encounter Procedures Procedure Name Priority Date/Time Associated Diagnosis Comments GLUCOSE RANDOM OR FASTING Routine 08/31/2024 Gestational diabetes mellitus (GDM) in third trimester, gestational diabetes method of control unspecified documented in this encounter Results * Glucose random or fasting- POCT (08/31/2024) External Glucose Fasting Or Random (Fbs) 99 MANUALLY TRANSCRIBED RESULTS Blood Venous blood / Unknown 08/31/2024 us Jackson Cruz MD LAB BLOOD ORDERABLES Final Re sult MANUALLY TRANSCRIBED RESULTS documented in this encounter Visit Diagnoses Diagnosis Gestational diabetes mellitus (GDM) in third trimester, gestational diabetes method of control unspecified- Primary documented in this encounter
--- OUTSIDE RECORDS SUMMARY | 2024-09-05 13:45 | XMS_ITS | Encounter Summary ---
Author Organization [facility] Address [facility] [place] [address] Care Team Providers Care Movie Producer Name Role Phone Robles Goldsmith DO Unavailable [phone] Josefina Harris RN Unavailable [phone] Source Comments In the event this information is protected by the Federal Confidentiality of Alcohol and Drug AbusePatient Records regulations: The Federal rules restrict any use of the information to criminally investigate or prosecute any alcohol or drug abuse patient.[facility] Reason for Visit * Reason Comments Follow Up Yearly follow up Encounter Details Date Type Department Care Team (Late st Contact Info) Description 09/05/2024 1:45 PM EDT Office Visit Otolarynogology [address] [id number] Franklin Laboy MD [address] [place] [address] Social History Tobacco Use Types Packs/Day Years [...] is lower risk 4 12/21/2023 Data from: https://www.neighborhoodatlas.medicine.[facility].edu/. Last address used for calculation [address] 12/21/2023 Comments Yes Sex and Gender Information Value Date Recorded Sex Assigned at Female 01/04/2023 6:38 PM EDT Legal Sex Female 10:39 AM EDT Gender Identity Female 01/04/2023 6:38 PM EDT Sexual Orientation Not on file documented as of this encounter Plan of Treatment Not on file documented as of this encounter Visit Diagnoses Not on filedocumented in this encounter Care Teams Movie Producer Relationship Specialty Start Date End Date Robles Goldsmith DO [address] [address] Referring Obstetrics 10/13/22 [place] [address] [place] [address] Specialty Tank Carpenter 04/12/24 documented as of this encounter
--- OUTSIDE RECORDS SUMMARY | 2024-09-06 13:30 | XMS_ITS | Encounter Summary ---
Author Organization [facility] Address [address] [place] [address] Care Team Providers Care Chinchilla Machine Operator Name Role Phone Omer Velazquez MD Primary Care Provider [phone] Encounter Details Date Type Department Care Team (Latest Contact Info) Description 09/06/2024 1:30 PM EDT Ancillary Procedure [facility] [address] [address] Gestational diabetes mellitus (GDM), antepartum, gestational diabetes method of control unspecified ([facility]) Social History Tobacco Use Types Packs/Day Years [...] AM EDT Routine [facility] [address] [place] [address] Saravanan Ahumada, DO [address] [place] [address] 07/24/2025 9:15 AM EDT Office Visit [facility] IM [address] [place] [id number] documented as of this encounter Goals Goal Patient Goal Type Associated Problems Recent Progress Patient-Stated? Author Reminders Care Plan OB Reminders No Open Scheduling, Background documented as of this encounter Procedures Procedure Name Priority Date/Time Associated Diagnosis Comments US OB FOLLOW UP TRANSABDOMINAL APPROACH Routine 09/06/2024 1:55 PM EDT Gestational diabetes mellitus (GDM), antepartum, gestational diabetes method of control unspecified ([facility]) documented in this encounter Results * US OB follow [...] II, MD, PHD at 08-Sep-2024 10:22:30 AM [facility] Procedure Note Alysa Walker MD - [...] signed by ALYSA WALKER II, MD, PHD [id number] 10:22:30 AM [facility] us Saravanan ASIF OB US PROCEDURES Final Resul t documented in this encounter Visit Diagnoses Diagnosis Gestational diabetes mellitus (GDM), antepartum, gestational diabetes method of control unspecified ([facility]) documented in this encounter Additional Health Concerns Active Problems Noted Date Diagnosed Date OB Reminders 04/30/2024 documented as of this encounter Care Teams Chinchilla Machine Operator Relationship Specialty Start Date End Date Omer Velazquez MD [address] [facility] [address] [place] [address] PCP - General Internal Medicine 10/05/22 documented as of this encounter
--- OUTSIDE RECORDS SUMMARY | 2024-09-11 09:00 | XMS_ITS | Encounter Summary ---
Author Organization [facility] Address [address] [place] [address] Care Team Providers Care Etl Analyst Name Role Phone Robles Goldsmith Benitez DO Unavailable [phone] Josefina Harris RN Unavailable [phone] Source Comments In the event this information is protected by the Federal Confidentiality of Alcohol and Drug AbusePatient Records regulations: The Federal rules restrict any use of the information to criminally investigate or prosecute any alcohol or drug abuse patient.[facility] Reason for Visit * Reason Comments Follow Up Encounter Details Date Type Department Care Team (Latest Contact Info) Description 09/11/2024 9:00 AM EDT [facility] Endocrinology [address] [id number] Mirta Valderrama MD [address] [place] [address] Monoallelic mutation of SDHA gene (Primary Dx); Gestational diabetes mellitus (GDM) in third trimester, gestational diabetes method of control unspecified (HCC) Social History Tobacco Use Types Packs/Day Years Used Date Smoking Tobacco: Never Smokeless Tobacco: Never Tobacco Cessation:Counseling Given: No Alcohol Use Standard Drinks/Week Comments Yes 0 (1 standard drink = 0.6 oz pur e alcohol) rare, socially Area Deprivation Index Answer Date Ibrahima rded National Score (1-100), lower number is lower ri 64 12/21/2023 State Score (1-10), lower number is lower risk 4 12/21/2023 Data from: https://www.neighborhoodatlas.medicine.[facility]/. Last address used for calculation [address] 12/21/2023 Comments Yes Sex and Gender Information Value Date Recorded Sex Assigned at Female 01/04/2023 6:38 PM EDT Legal Sex Female 10:39 AM EDT Gender Identity Female 01/04/2023 6:38 PM EDT Sexual Orientation Not on file documented as of this encounter Patient Instructions * Patient Instructions* Mirta Valderrama MD - 09/11/2024 9:21 AM EDT We discussed your SDHA gene mutation and : - You have a pathogenic variant in the SDHA gene. Your mom also has this mutation, but your sister has not been tested yet. - Since you are currently , we will not perform any imaging (e.g., CT scans or MRIs) until after you deliver. These tests are typically done every 2-3 years. - Your plasma metanephrines from May 2023 were normal, and imaging from June 23, 2023, showed noevidence of masses or other concerning findings. This year???s plasma metanephrines are still pending, and I will contact you via [employer] once the results are available. - Your thyroid blood work from July 2023 was normal, with a TSH of 2.7 and negative thyroid peroxidase antibodies. There is no need for treatment at this time. - Please follow up with me after your delivery to schedule imaging and further testing as needed. We discussed your gestational diabetes: - You were recently diagnosed with gestational diabetes. Please continue to follow up with your CLIENT SERVER PROGRAMMER and the diabetes care team for management. - Ensure you are working with a dietitian or diabetes nutrition expert to manage your blood sugar levels. Follow their dietary recommendations closely. - Avoid prolonged fasting, as this can lead to elevated blood sugar levels. We discussed your : - You are currently 28 weeks and due on November 19. Congratulations on your baby boy! - Continue taking your vitamins as prescribed. - Your blood pressure is under good control, and there is no protein in your urine based on recent tests. Your CLIENT SERVER PROGRAMMER will likely repeat a urine test at your next visit in 4 weeks. - Your hemoglobin, hematocrit, and red blood cell count were low on recent testing. Please follow up with your CLIENT SERVER PROGRAMMER for further evaluation and management. Follow-Up Plan: - Please continue to follow up with your CLIENT SERVER PROGRAMMER for routine care and gestational diabetes management. - Once your plasma metanephrines results are available, I will contact you via [employer]. - After your delivery, please message me to schedule imaging and blood work for follow-up on your SDHA mutation. If your blood work is normal, imaging can be deferred until 2025 or 2026. Wishing you a safe and healthy ! documented in this encounter Progress Notes * Mirta Valderrama MD - 09/11/2024 8:59 AM EDT DATE: 09/11/2024 VIRTUAL VISIT PROGRESS NOTE This is a virtual visit using [employer] Zoom Video Visit. It required patient- provider interaction for the medical decision making as documented below. I have communicated my name and active licensure. The patient's identity and physical location wereverified at the time of this visit. Either the patient or their legal territory representative has been informed of the risks and benefits of -- and alternatives to -- treatment through a remote evaluation andconsents to proceed with the evaluation remotely. Lissa Rivas is a 29 year old female seen for SDHA mutation. GERARD: 08/17/2023 with me for the same. Thao Rivas is a 29-year-old female, , with a pathogenic variant in the SDHA gene, presentingfor follow-up. Thao is currently 28 weeks with a male fetus and has been diagnosed with gestational diabetes mellitus (GDM) approximately 1-2 weeks ago. She is under the care of her CLIENT SERVER PROGRAMMER in [place] for GDM management. Despite dietary modifications, she reports elevated fasting blood glucose levels, while postprandial levels remain within the target range. She is currently not on insulin but mentions that it has been discussed as a potential treatment option. She discontinued metformin in February and is not taking Prometrium. She is currently taking vitamins. She denies any issues with blood pressure control and has not been informed of proteinuria during her last two urine tests. She reports feeling well overall, attributing her fatigue to . 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 Her mother also carries this gene mutation, but her sister has not yet been tested. She is currently awaiting the results of plasma metanephrines drawn on September 04. Previous plasma metanephrines and nor metanephrines tested in May were within normal limits. Imaging studies, including a CT scan of the neck, soft tissue, chest, abdomen, and pelvis performed on June 22, showed no evidence of masses. Thyroid function tests conducted on August 16 showed a TSH level of 2.69 and negative thyroid peroxidase antibodies. Hemoglobin A1c was 5.5% on February 22. HISTORY REVIEWED (electronic chart updated): PAST MEDICAL HISTORY Diagnosis Date Anxiety Asthma (HCC) Chlamydia age 16 Chronic fatigue syndrome Generalized [...] Maternal great-grandmother Breast Cancer Maternal Aunt 45 Social History Tobacco Use Smoking status: Never Smokeless tobacco: Never Substance Use Topics Alcohol use: Yes Comment: rare, socially Drug use: Never Current Outpatient Medications Medication Sig metFORMIN ER (GLUCOPHAGE XR) 500 [...] No current facility-administered medications for this visit. ALLERGIES No Known Allergies REVIEW OF SYSTEMS: Answers submitted by the patient for this visit: Core Review of Systems (Submitted on 09/11/2024) Fever : No Night sweats: No Recent unintentional weight change: No Nasal Congestion: No Hearing Loss: No Vision Disturbance: No A cough: No Difficulty Breathing?: No Chest pain: No Irregular heartbeat: Yes Leg Swelling: No Nausea: No Diarrhea: No Black tarry stools: No Difficulty Urinating?: No Awaken at Night More Than Once to Urinate?: No Joint pain or stiffness: No Muscle aches: No Leg or Foot Discomfort at Night?: No A rash: No Dizziness: No Headaches: No Memory Loss: No Seizures: No PHYSICAL EXAMINATION: VIDEO EXAM: (if completed, performed via video enabled technology) GENERAL: alert and appropriate, in no distress, well-hydrated, well nourished, and happy, smiling, interactive SKIN: no rash noted HEAD: normocephalic, no abnormality or lesion noted Labs: (09/04) Plasma Metanephrines: Pending (02/23/2024) Hemoglobin A1c: 5.5 (08/17/2023) Thyroid Blood Work: - Thyroid peroxidase antibodies: Negative - TSH: 2.69 (05/2023) Plasma Metanephrines: Normal CBC: - RBC: Low - Hemoglobin: Low - Hematocrit: Low Imaging: (06/23/2023) CT Neck, Chest, Abdomen, and Pelvis: No evidence of mass IMAGIN06/23/2023 CT neck soft tissue IMPRESSION: No evidence for mass or adenopathy in the neck. CT chest IMPRESSION: No CT evidence of acute abnormality. Unremarkable chest CT, no findings of enlarged lymph nodes in the thorax. CT abdomen/pelvis IMPRESSION: 1. Hepatic steatosis. 2. No mass, lymphadenopathy or splenomegaly in the abdomen. 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 SDHA monoallelic pathogenic variant: awaiting plasma metanephrines from 09/04/2024 to be resulted. Imaging done in 2023 WNL. she will notify me after delivery and recovery and we will do labs and imaging in 2025, sooner if she develops any symptoms. asked her to get her sister to be tested for the pathogenic variation. 2. Gestational diabetes mellitus (GDM) in third trimester, gestational diabetes method of control unspecified (HCC) Recently diagnosed with gestational diabetes mellitus (GDM) at approximately 28 weeks gestation. Blood glucose levels are well-controlled postprandially but elevated during fasting periods. Patient is under the care of a specialist in [place] and is no longer taking Metformin since February. vitamins are being taken regularly. Blood pressure is well-controlled, but recent urinalysis showed proteinuria. - Continue management of GDM with current specialist. - Advised against fasting; recommended frequent small meals to maintain stable blood glucose levels. - Encouraged to follow up with a diabetes nutrition expert for dietary management. - Monitor blood glucose levels as instructed and report to the specialist weekly. - Follow up with CLIENT SERVER PROGRAMMER for regular care and monitoring of GDM. TSH was 2.69 prior to conception but TPO Ab were negative. Mirta Valderrama MD, MPH Endocrinology documented in this encounter Plan of Treatment Not on file documented as of this encounter Visit Diagnoses Diagnosis Monoallelic mutation of SDHA gene- Primary Gestational diabetes mellitus (GDM) in third trimester, gestational diabetes method of control unspecified (HCC) documented in this encounter Care Teams Etl Analyst Relationship Specialty Start Date End Date Robles Goldsmith DO [address] [id number] Referring Obstetrics 10/13/22 [place] [address] [place] [address] Specialty V Groove Cutter 04/12/24 documented as of this encounter
--- OUTSIDE RECORDS SUMMARY | 2024-09-12 10:00 | XMS_ITS | Encounter Summary ---
Author Organization [facility] tem Address [id number] [address] [place] [address] Care Team Providers Care Printing Services Coordinator Name Role Phone Unavailable Primary Care Provider Unavailabl e Reason for Visit * Reason Comments MEDSTART-GDM Encounter Details Date Type Department Care Team (Late st Contact Info) Description 09/12/2024 10:00 AM EDT Office Visit Maternal- Medicine at [facility] [address] [place] [address] Ruthann Miller, PARalph [address] [address] Insulin controlled gestational diabetes mellitus (GDM) in third trimester; Abnormal liver enzymes; Abnormal genetic test; Gestational diabetes requiring insulin; Elevated blood pressure affecting , antepartum Social History Tobacco Use Types Packs/Day Years Used Date Smoking Tobacco: Never Smokeless Tobacco: Never Tobacco Cessation:Counseling Given: Not Answered Alcohol Use Standard Drinks/Week Comments Not Currently 0 (1 standard drink = 0.6 oz pur e alcohol) Hunger Screening Answer Date Recorded Within the past 12 months we worried whether our food would run out before we got money to buy more. Never True 09/12/2024 Within the past 12 months th e food we bought just didn't last and we didn't have money to get more. Never True 09/12/2024 Estimated Date of Delivery Comme nts Yes 11/19/2024 Based on last me nstrual period of 02/13/2024 Sex and Gender Information Value Date Recorded Sex Assigned at Not on file Legal Sex Female 1:21 PM EDT Gender Identity Not on file Sexual Orientation Not on file documented as of this encounter Last Filed Vital Signs Vital Sign Reading Time Taken Comments Blood Pressure 130/87 09/12/2024 10:39 AM EDT Pulse - - Temperature - - Respiratory Rate - - Oxygen Saturation - - Inhaled Oxygen Concentration - - Weight 101.3 kg (223 lb 6.4 oz) 025 10:08 AM EDT Height 160 cm (5' 3 ) 09/12/2024 10:08 AM EDT Body Mass Index 39.57 09/12/2024 10:08 AM EDT documented in this encounter Progress Notes * Ruthann Miller PA-C - 09/12/2024 10:00 AM EDT Maternal- Medicine Consultation HISTORY OF PRESENT ILLNESS: Lissa Rivas is a 29 y.o. female at 30w2d due on Estimated Date of Delivery: 11/19/24 complicated by Gestational diabetes, PCOS, h/o HSV, fatty liver, Monoallelic mutation of SDHA gene She denies contractions, vaginal bleeding, leaking fluid. She appreciates movement. Patient did have a headache over the weekend, does not have one today. States that last night she 'felt off' and a little dizzy. She denies visual symptoms, right upper abdominal pain, increase in edema, SOB, chest pain. BP today initially 137/91, recheck was 130/87 Dx with PCOS 2014, prescribed meformin 3 yras ago, stopped in Feb 2024 Father and PGM with diabetes BG log review: Fastings: 99-117, all over 95 PPB: 96-197, #2 >140 PPL 78-150, #1 >140 PPD: 102-146, #1 >140 Denies any values <60 day or night H/o elevated LFTS: Had liver US done, told fatty liver. Was told to have further imaging done, but plans to have done outside of Found to have genetic mutation when had genetics done for GAYATHRI. Gets yearly scans and metanephrine levels checked, neither of which have ever been abnromal FOB has been tested for this mutation and found to be negative. Her mother has same mutation Patient noticed she was feeling a low heart rate, so she worse a holter monitor for a period of time. She has not gotten the results back yet. Is not aware of ever having low HR when vitals have beentaken at clinic. Reports having ketones in urine this week. Denies N/V. Fasting BG levels LMP 02/13/2024 PAST OBSTETRICAL HISTORY: OB History 1 Para Term AB Living SAB IAB Ectopic Multiple Live Births SURGICAL HISTORY: Past Surgical History: Procedure Laterality Date EYE SURGERY ALLERGIES: No Known Allergies CURRENT MEDICATIONS: Current Outpatient Medications: fluticasone propionate (FLONASE) 50 mcg/actuation nasal spray, Administer 1 spray into each nostrilin the morning., Disp: , Rfl: letrozole (FEMARA) 2.5 mg chemo tablet, Take 1 tablet by mouth daily, Disp: , Rfl: medroxyPROGESTERone (PROVERA) 10 mg tablet, Take 1 tablet (10 mg total) by mouth in the morning., Disp: , Rfl: [id number]-fxfgl acid ( 19) 29 mg iron- 1 mg tablet,chewable, Chew 1 tablet and swallow in the morning., Disp: , Rfl: progesterone (PROMETRIUM) 200 mg capsule, Take 1 capsule (200 mg total) by mouth in the morning., Disp: , Rfl: LABS: No results found for: TSH , T3 , TOTALT4 , THYROIDAB No components found for: UPRC No results found for: CREATININE , BUN , NA , K , CL , CO2 No results found for: ALT , AST , GGT , ALKPHOS , LABBILI Lab Results Component Value Date HGBA1C 5.4 04/21/2024 No components found for: POCA1C REVIEW OF SYSTEMS: Head and Neck: Negative for any dizziness and headaches. Cardiovascular and Respiratory System: Denies any chest pain, shortness of breath, and coughing. Abdominal and System: Denies any abdominal pain, nausea, vomiting, vaginal bleeding, and vaginaldischarge PHYSICAL EXAMINATION: Gen: NAD Abdomen: Gravid, non tender, +FHTs DISCUSSION Gestational diabetes is a is a state of carbohydrate intolerance with subsequently insulin resistance and hyperglycemia. This is a malfunction or dysfunction of glucose sensors in the liver with inappropriate release of glucose followed by hyperinsulinemia followed by normal insulin secretion and th en relatively deficiency in insulin secretion resulting in both hyperglycemia and associated hypertriglyceridemia. This along with placental hormones such as human placental lactogen and TNF alpha cause hyperglycemia. The patient eventually develops insulin resistance and hyperglycemia Thus the patient's insulin is not sufficient to achieve a normal glycemic state. I informed the patient that maternal hyperglycemia results in hyperglycemia leading to adverse outcomes in the growth and development. We reviewed the implications and risks of diabetes in . Diabetes in is associated with poorer outcomes if blood glucose levels are not well controlled. Potential effects of uncontrolled diabetes , or hyperglycemia, include: macrosomia, hypoglycemia, shoulder dystocia, delivery by section, polyhydramnios, and demise. In addition, women with diabetes in are at increased risk of developing hypertension diseases in ,such as gestational hypertension, or preeclampsia. Patient was explained that the high risk of shoulder dystocia in fetuses with EFW 4500 gm or higher. Long-term risk to offspring from poor maternal glycemic control include: obesity, cardiovascular disease, impaired glucose tolerance and Type 2 diabetes. Treatment for diabetes in : Lifestyle modification with a healthy diet and increasing physical activity can help manage hyperglycemia, and is therefore always encouraged. We briefly discussed diet modifications and physical activity. The mainstay of pharmacotherapy for the treatment of diabetes in remains insulin. Oral hypoglycemics, such as metformin, both cross the placenta and are more likely to fail compared to insulin. detention data on children whose mothers took oral hypoglycemic agents while is limited. Medication is typically initiated when >20-30% of the blood glucose values in one week are outof range. Risks and side effects of both insulin and oral agents were discussed. In discussion of the above, patients opts to initiate insulin For now I would recommend initiation of a long acting insulin at night. Reviewed pharmacokinetics of long acting insulin. Discussed risk of hypoglycemia with insulin, however risk is low with starting at a low dose, gradual titration, and avoidance of skipping meals or prolonged fasting. Discussed she may not see an appreciable difference in her BG levels with her initial starting dose, but that we will gradually increase her dose to ideally get her BG levels to goal. Injection teaching provided by RN Glucose goals in : Fasting 60 - 95: Mean fasting glucose values are important in managing diabetes in women because they provide overall glycemic estimate, and are predictive of increased fat mass in the women???s offspring. Increased fat mass has been shown to be associated with the development of childhood obesity, and diabetes. One hour postprandial 90 - 140: Postprandial measurements are important in management of diabetes in because they are associated with incidence of large for gestational age infants, and lower rates of delivery for cephalopelvic disproportion when well controlled. Discussed monitoring for hypogylcemia, signs/symptoms of hypoglycemia, and examples of treatment ofhypoglycemia (1515 rule). Discussed her current diet and her awareness of grams of carbohydrate per meal. Reviewed recommendations - 30g carbohydrate for breakfast, 45-60g carbohydrate for lunch and dinner, 15g carbohydrate for snacks, incorporating sufficient protein with each meal and ideally having half of plate be fruits and vegetables (with awareness of which fruits typically spike blood glucose). Encouraged her to be aware of carbohydrate intake and note which foods causing values above goal. Encouraged her on diet modifications. PLAN - Current blood glucose control: mildly elevated fastings - Medication: - None - Start Lantus 12 units qhs - Labs - A1c- 5.4 on 04.21.24 - low risk cell free dna - Anatomy survey with M - please contact us if you would ;jammie a survey done with us - growth ultrasounds every 4 weeks after 28 weeks - Recommend the following for testing, which can be done with primary OB: - NST and RAKESH once weekly at 32 weeks - NST twice weekly and RAKESH once weekly at 36 weeks - Delivery recommendations : - Recommend delivery at [id number] - Use 1/2 dose of insulin the night before her planned delivery - will review at later appt - Given GDMA2, can monitor patient's BG every 4hrs during latent labor, every 1 hr during active labor with goal BG to be less than 140mg/dl. Can use insulin sliding scale prn hyperglycemia. Once delivered, checked blood glucose fasting and 1hr post prandial, with goal of 100-130mg/dl for fasting and <180mg/dl for random or post prandial blood glucose levels - Obtain a 2-hour GTT 6-8 weeks . Also recommend yearly evaluation of blood glucose as patient is at an increased risk of developing diabetes later on - Mild range BP at initial today, recheck within normal limits. CMP, CBC, urine protein creatinine ordered. Patient aware to go to triage with any persistent or recurrent KEYS's, visual symptoms, mid or right upper abdominal apin, increase edema, SOB, chest pain. She tells me she has an appt with your team tomorrow. Of note patient with h/o elevated LFTs, last CMP done Jan 2024: AST nl, ALT mildly elevated at 41 Labor symptoms, preeclampsia sign/symptoms, and movement precautions reviewed. Follow up in 1 week with Maternal- Medicine given initiation of medication. I asked her to keep sending values to us weekly by e-mail to: or by fax to: [phone] Ruthann Miller PA-C Maternal- Medicine Office phone: [phone] Ruthann Miller PA-C 09/12/24 1211 * Haritha Tatum CMA - 09/12/2024 10:00 AM EDT Headache/epigastric pain/blurry vision/swelling? Gastric pain and a headache on Wednesday. May be due to ear issues. Comes and goes. Cramping/contractions? Light cramping Abnormal vaginal discharge? Increased discharge Spotting or vaginal bleeding? No Loss or gush of fluid like your water may have broken? 2 weeks ago. Recent ER visits or hospitalizations? Triage 2 weeks ago due to loss of fluid. Any concerns that you would like me to mention to the provider today? Extremly fatigued. Has to take naps. * Rupal Johnston LPN - 09/12/2024 10:00 AM EDT Patient instructed on insulin administration: when to take prescribed dose in relation to daily schedule, use of the insulin pen, how to give injection into the sub-Q tissue in relation to the gravidabdomen, rotation of injection sites, proper disposal of sharps and symptoms of hypoglycemia. Patient education materials given: insulin action chart, hypoglycemia management, proper disposal of sharps and procedure guide sheet for use of insulin pen. Patient returned demonstration. Questions answered. Encouraged to call office with questions or concerns. documented in this encounter Plan of Treatment Upcoming Encounters Date Type Department Care Team (Tristan mendoza Contact Info) Description 09/20/2024 11:00 AM EDT Telemedicine Maternal- Medicine at [facility] [address] [place] [phone] Siria Rebolledo APRN-CNP [address] [place] [address] 10/16/2024 2:00 PM EDT Office Visit Maternal- Medicine at [facility] [address] [place] [phone] Vy Pemberton MD [address] [address] Scheduled Orders Name Type Priority Associated Diagnoses Orde r Schedule Comprehensive metabolic panel Lab Routine Abnormal liver enzymes Abnormal genetic test Gestational diabetes requiring insulin Elevated blood pressure affecting , antepartum 1 Occurrences starting 09/12/2024 until 09/12/2025 Urine protein creatinine ratio Lab Routine Gestational diabetes requiring insulin Elevated blood pressure affecting , antepartum 1 Occurrences starting 09/12/2024 until 09/12/2025 CBC without diff Lab Routine Insulin controlled gestational diabetes mellitus (GDM) in third trimester Abnormal liver enzymes Elevated blood pressure affecting , antepartum 1 Occurrences starting 09/12/2024 until 09/12/2025 documented as of this encounter Visit Diagnoses Diagnosis Insulin controlled gestational diabetes mellitus (GDM) in third trimester Abnormal liver enzymes Abnormal genetic test Gestational diabetes requiring insulin Abnormal maternal glucose tolerance, complicating , childbirth, or the puerperium, unspecified as to episode of care Elevated blood pressure affecting , antepartum documented in this encounter
--- OUTSIDE RECORDS SUMMARY | 2024-09-12 16:31 | XMS_ITS | Encounter Summary ---
Author Organization [facility] [employer] [facility] tem Address [id number] [address] [place] [address] Care Team Providers Care Sales Promotion Officer Name Role Phone Unavailable Primary Care Provider Unavailabl e Encounter Details Date Type Department Care Team (Late Contact Info) Description 09/05/2024 Orders Only Maternal- Medicine at [facility] [address] [place] [phone] Jackson Cruz MD [address], [address] [place], [place] [id number] Social History Tobacco Use Types Packs/Day Years [...] 11:00 AM EDT Telemedicine Maternal- Medicine at [facility] [address] [place] [phone] Siria Rebolledo, TOB[employer] W[employer] MAINTENANCE [address] [place] [place], [place] [id number] 10/16/2024 2:00 PM EDT Office Visit Maternal- Medicine at [facility] [address] [place] [phone] Vy Pemberton MD [address], [address] [place] [phone] documented as of this encounter Visit Diagnoses Not on filedocumented in this encounter
--- OUTSIDE RECORDS SUMMARY | 2024-09-12 16:31 | XMS_ITS ---
Author Organization [facility] ction (ClinicalSummary Clone) Address Unknown Care Team Providers Care Product Support Specialist Name Role Phone Unavailable Primary Care Physician Unavailab le Results * [UNITY] ANEUPLOIDY NIPT Performed by: [employer] Component Value Range Date Fraction 4.3% 04/29/2024 [...]
--- OUTSIDE RECORDS SUMMARY | 2024-09-12 16:31 | XMS_ITS | Encounter Summary ---
Author Organization [facility] [employer] [facility] tem Address [id number] [address] [place] [address] Care Team Providers Care Floor Worker Well Service Name Role Phone Unavailable Primary Care Provider Unavailabl e Encounter Details Date Type Department Care Team (Late st Contact Info) Description 08/30/2024 Abstract Maternal- Medicine at [facility] [address] [place] [phone] External, Scanning Provider Social History Tobacco Use Types Packs/Day Years [...] 11:00 AM EDT Telemedicine Maternal- Medicine at [facility] [address] [place] [phone] Siria Rebolledo, DE[employer] ACTIVITIES CLERK [address] [place] [address] 10/16/2024 2:00 PM EDT Office Visit Maternal- Medicine at [facility] [address] [place] [phone] Vy Pemberton MD [address] [facility], [address] [place] [id number] documented as of this encounter Procedures Procedure Name Priority Date/Time Associated Diagnosis Comments GLU 1H POST 50G LOAD Routine 08/23/2024 CHLAMYDIA/GC BY PCR CODY SWAB Routine 06/19/2024 HIV 1&2 AB/AG SCREEN (P24 AG) Routine 04/21/2024 RUBELLA IGG IMMUNE STATUS Routine 04/21/2024 SYPHILIS TOTAL(UNKNOWN SYPHILIS STATUS) Routine 04/21/2024 HEPATITIS C(HCV) ANTIBODY W/REFLEX TO PCR Routine 04/21/2024 DRUG SCREEN, URINE Routine 04/21/2024 HEPATITIS B SURFACE ANTIGEN Routine 04/21/2024 TYPE AND SCREEN Routine 04/21/2024 HEMOGLOBIN A1C Routine 04/21/2024 DRUG SCREEN, URINE Routine 03/27/2024 documented in this encounter Results * Glucose 1h post 50g load (08/23/2024) Glucose, 1 hr PP 50GM dose 181 MANUALLY TRANSCRIBED RESULTS Blood Venous blood / Unknown us Not In System Ref Prov LAB BLOOD ORDERABLES Breanna l Result MANUALLY TRANSCRIBED RESULTS * Chlamydia/GC by PCR Cody Swab (06/19/2024) Chlamydia Dna(Pcr) negative MANUALLY TRANSCRIBED RESULTS Gonorrhoeae Dna(Pcr) negative MANUALLY TRANSCRIBED RESULTS Swab us Not In System Ref Prov MICROBIOLOGY - GENERAL OR DERABLES Final Result MANUALLY TRANSCRIBED RESULTS * Drug Screen, Urine (04/21/2024) Opiates negative MANUALLY TRANSCRIBED RESULTS Cocaine Metabolite negative M ANUALLY TRANSCRIBED RESULTS Phencyclidine negative MANUAL LY TRANSCRIBED RESULTS Thc Marijuana, Urine negative MANUALLY TRANSCRIBED RESULTS Benzodiazepines negative MANU ALLY TRANSCRIBED RESULTS Urine us Not In System Ref Prov URINE ORDERABLES Final Re sult Performing Organization Address [facility] Co de Phone Number MANUALLY TRANSCRIBED RESULTS * Hepatitis B surface antigen (04/21/2024) Hepatitis B Surface Antigen negative MANUALLY TRANSCRIBED RESULTS Blood Venous blood / Unknown us Not In System Ref Prov LAB BLOOD ORDERABLES Breanna l Result Performing Organization Address City/[facility]/ZIP Co de Phone Number MANUALLY TRANSCRIBED RESULTS * Hepatitis C(HCV) Ab w/ Reflex to PCR (04/21/2024) Hepatitis C Antibody non reactive MANUALLY TRANSCRIBED RESULTS Blood Venous blood / Unknown us Not In System Ref Prov LAB BLOOD ORDERABLES Breanna l Result Performing Organization Address City/[facility] Co de Phone Number MANUALLY TRANSCRIBED RESULTS * HIV 1&2 AB/AG Screen (P24 AG) (04/21/2024) HIV 1&2 AB/AG non reactive MAN UALLY TRANSCRIBED RESULTS Blood Venous blood / Unknown us Not In System Ref Prov LAB BLOOD ORDERABLES Breanna l Result Performing Organization Address City/[facility]/ZIP Co de Phone Number MANUALLY TRANSCRIBED RESULTS * Rubella IGG immune status (04/21/2024) Rubella immune IgG non immune MANUALLY TRANSCRIBED RESULTS Blood Venous blood / Unknown us Not In System Ref Prov LAB BLOOD ORDERABLES Breanna l Result Performing Organization Address [facility] Co de Phone Number MANUALLY TRANSCRIBED RESULTS * Syphilis Total (Unknown Syphilis Status) (04/21/2024) Syphilis non reactive MANUALL Y TRANSCRIBED RESULTS Blood Venous blood / Unknown us Not In System Ref Prov LAB BLOOD ORDERABLES Breanna l Result Performing Organization Address [facility] de Phone Number MANUALLY TRANSCRIBED RESULTS * Hemoglobin A1c (04/21/2024) Hemoglobin A1C 5.4 4.0 - 6.0 % MANUALLY TRANSCRIBED RESULTS Blood Venous blood / Unknown us Scanning Provider External LAB BLOOD ORDERABLES Final Result Performing Organization Address [facility] de Phone Number MANUALLY TRANSCRIBED RESULTS * Type and screen (04/21/2024) Abo/Rh(D) A Negative MANUALLY TRANSCRIBED RESULTS Antibody Screen negatve MANUALLY TRANSCRIBED RESULTS Blood Venous blood / Unknown us Not In System Ref Prov BLOOD BANK TEST ORDERABLE S Final Result Performing Organization Address [facility] de Phone Number MANUALLY TRANSCRIBED RESULTS * Drug Screen, Urine (03/27/2024) Methadone negative MANUALLY TRANSCRIBED RESULTS Amphetamine/Meth amphetamine negative MANUALLY TRANSCRIBED RESULTS Oxycodone negative MANUALLY TRANSCRIBED RESULTS Barbiturates negative MANUALL Y TRANSCRIBED RESULTS Urine us Not In System Ref Prov URINE ORDERABLES Final Re sult Performing Organization Address City/[facility] Co de Phone Number MANUALLY TRANSCRIBED RESULTS documented in this encounter Visit Diagnoses Not on filedocumented in this encounter
--- OUTSIDE RECORDS SUMMARY | 2024-09-12 16:31 | XMS_ITS | Encounter Summary ---
Author Organization [facility] [employer] [facility] tem Address [id number] [address] [place] [address] Care Team Providers Care Extruder Operator Horizontal Name Role Phone Unavailable Primary Care Provider Unavailabl e Encounter Details Date Type Department Care Team (Late st Contact Info) Description 09/05/2024 Telephone Maternal- Medicine at [facility] [address] [place] [phone] Aranza Beltran, RN Social History Tobacco Use Types Packs/Day Years [...] encounter Miscellaneous Notes * Telephone Encounter - Aranza Beltran RN - 09/05/2024 6:42 PM EDT Called pt to discuss her blood sugars and that Dr Cruz reviewed her blood sugars and would likeher to increase her metformin to 500mg in the morning and 500mg in the evening. Pt stated she has just started diabetes education last week and is not currently taking metformin. She has in the past but not currently. She would like to try some things for another week and she was not doing a 8-9 hour fasting they are more like 12 hours and she is not consistently doing a snack before bed. Gave her suggestion for snack in the evening because she is not hungry. She will try some things this next week and send in new blood sugars next week. I will let Dr Cruz know that the pt is not on metformin and we will take it out of her chart. We did talk a little about insulin and if she needs medication she will probably do insulin and not metformin. documented in this encounter Plan of Treatment Upcoming Encounters Date Type Department Care Team (Late st Contact Info) Description 09/20/2024 11:00 AM EDT Telemedicine Maternal- Medicine at [facility] [address] [place] [phone] Siria Rebolledo APRN-JORDAN [address] [place] [address] 10/16/2024 2:00 PM EDT Office Visit Maternal- Medicine at [facility] [address] [place] [phone] Vy Pemberton MD [address] [address] documented as of this encounter Visit Diagnoses Not on filedocumented in this encounter
--- OUTSIDE RECORDS SUMMARY | 2024-09-12 16:31 | XMS_ITS | Encounter Summary ---
Author Organization [facility] [employer] [facility] tem Address [facility] [place][id number] [address] [place] [address] Care Team Providers Care Air Quality Engineer Name Role Phone Unavailable Primary Care Provider Unavailabl e Encounter Details Date Type Department Care Team (Latest Contact Info) Description 08/31/2024 Travel Social History Tobacco Use Types Packs/Day [...] 11:00 AM EDT Telemedicine Maternal- Medicine at [facility] [address] [place] [address] Siria Rebolledo, TUG BOAT ENGINEER-CORRECTIONS IDENTIFICATION TECHNICIAN [address] [place] [address] 10/16/2024 2:00 PM EDT Office Visit Maternal- Medicine at [facility] [address] [place] [address] Vy Pemberton MD [address] [facility], [address] [place] [address] documented as of this encounter Visit Diagnoses Not on filedocumented in this encounter
--- OUTSIDE RECORDS SUMMARY | 2024-09-12 16:31 | XMS_ITS | Encounter Summary ---
Author Organization [facility] Address [address] [place] [address] Care Team Providers Care Transition Coach Name Role Phone Robles Goldsmith DO Unavailable [phone] Josefina Harris RN Unavailable [phone] Source Comments In the event this information is protected by the Federal Confidentiality of Alcohol and Drug AbusePatient Records regulations: The Federal rules restrict any use of the information to criminally investigate or prosecute any alcohol or drug abuse patient.[facility] Encounter Details Date Type Department Care Team (Late st Contact Info) Description 03/23/2023 Patient Msg [address] [address] Provider, Ccf Appointment Reschedule Social History Tobacco [...] on filedocumented in this encounter Care Teams Transition Coach Relationship Specialty Start Date End Date Robles Goldsmith DO [address] [facility] [address] [place] [address] Referring Obstetrics 10/13/22 Josefina Harris, ARIC [address] [place] [address] Specialty Grease Buffer 04/12/24 documented as of this encounter
--- OUTSIDE RECORDS SUMMARY | 2024-09-12 16:31 | XMS_ITS | Encounter Summary ---
Author Organization [facility] tem Address [id number] [address] [place] [address] Care Team Providers Care Milk Route Supervisor Name Role Phone Unavailable Primary Care Provider Unavailabl e Encounter Details Date Type Department Care Team (Late Contact Info) Description 08/30/2024 Orders Only Maternal- Medicine at [facility] [address] [place] [address] Ref Prov, [place] [address] Social History Tobacco Use Types Packs/Day Years [...] 11:00 AM EDT Telemedicine Maternal- Medicine at [facility] [address] [place] [address] Siria Rebolledo, CHIEF TECHNICIAN-GORE SEAMER [address] [place] [address] 10/16/2024 2:00 PM EDT Office Visit Maternal- Medicine at [facility] [address] [place] [address] Vy Pemberton MD [address], [address] [place] [address] documented as of this encounter Procedures Procedure Name Priority Date/Time Associated Diagnosis Comments ULTRASOUND OFFICE Routine 06/19/2024 12: 52 PM EDT UNLISTED LAB TEST Routine 05/22/2024 12: 55 PM EST AFP SINGLE MARKER SCRN, MATERNAL, SERUM Routine 04/21/2024 12:57 PM EST ULTRASOUND OFFICE Routine 2024 12: 48 PM EST documented in this encounter Results * Ultrasound - Office (06/19/2024 12:52 PM EDT) Anatomical Region Laterality Modality AMB Ultrasound us Not In System Ref Prov IMG US ORDERABLES Final R esult * Unlisted Lab Test (05/22/2024 12:55 PM EST) us Not In System Ref Prov LAB BLOOD ORDERABLES Breanna l Result Performing Organization Address City/[facility]/ZIP Co de Phone Number MANUALLY TRANSCRIBED RESULTS * AFP Single Marker Scrn, Maternal, Serum (04/21/2024 12:57 PM EST) Blood Venous blood / Unknown us Not In System Ref Prov LAB BLOOD ORDERABLES Breanna l Result Performing Organization Address [facility]/ZIP Co de Phone Number MANUALLY TRANSCRIBED RESULTS * Ultrasound - Office (2024 12:48 PM EST) Anatomical Region Laterality Modality AMB Ultrasound us Not In System Ref Prov IMG US ORDERABLES Final R esult documented in this encounter Visit Diagnoses Not on filedocumented in this encounter
--- OUTSIDE RECORDS SUMMARY | 2024-09-12 16:31 | XMS_ITS | Encounter Summary ---
Author Organization [facility] Address [address] [place] [address] Care Team Providers Care Outsole Caser Name Role Phone Robles Goldsmith DO Unavailable [phone] Josefina Harris RN Unavailable [phone] Source Comments In the event this information is protected by the Federal Confidentiality of Alcohol and Drug AbusePatient Records regulations: The Federal rules restrict any use of the information to criminally investigate or prosecute any alcohol or drug abuse patient.[facility] Encounter Details Date Type Department Care Team (Latest Contact Info) Description 05/25/2023 Patient Msg Reproductive Endocrinology Infertility [address] [place] [address] Shaina Parr MD [address] [place], [place] [phone] Appointment Request Social History Tobacco Use Types [...] on filedocumented in this encounter Care Teams Outsole Caser Relationship Specialty Start Date End Date Robles Goldsmith DO [address] [facility] [address] [place] [address] Referring Obstetrics 10/13/22 [place] [address] [place] [address] Specialty Tabber 04/12/24 documented as of this encounter
--- OUTSIDE RECORDS SUMMARY | 2024-09-12 16:32 | XMS_ITS | Encounter Summary ---
Author Organization [facility] Address [address] [place] [address] Care Team Providers Care Physical Therapy Professor Name Role Phone Robles Goldsmith DO Unavailable [phone] Josefina Harris RN Unavailable [phone] Source Comments In the event this information is protected by the Federal Confidentiality of Alcohol and Drug AbusePatient Records regulations: The Federal rules restrict any use of the information to criminally investigate or prosecute any alcohol or drug abuse patient.[facility] Encounter Details Date Type Department Care Team (Late st Contact Info) Description 03/24/2024 Patient [facility] [place] [address] Cee Palafox RPh At your next appointment, choose [facility]. Social History Tobacco Use Types Packs/Day [...] is lower risk 4 12/21/2023 Data from: https://www.neighborhoodatlas.medicine.[facility].edu/. Last address used for calculation [address] [place] [address] 12/21/2023 Comments Yes Sex and Gender Information Value Date Recorded Sex Assigned at Female 01/04/2023 6:38 PM EDT Legal Sex Female 10:39 AM EDT Gender Identity Female 01/04/2023 6:38 PM EDT Sexual Orientation Not on file documented as of this encounter Plan of Treatment Not on file documented as of this encounter Visit Diagnoses Not on filedocumented in this encounter Care Teams Physical Therapy Professor Relationship Specialty Start Date End Date Robles Goldsmith DO [address] [facility] [address] [place] [address] Referring Obstetrics 10/13/22 [place] [address] [place] [address] Specialty Attenuator 04/12/24 documented as of this encounter
--- OUTSIDE RECORDS SUMMARY | 2024-09-12 16:32 | XMS_ITS | Encounter Summary ---
Author Organization [facility] Address [address] [place] [address] Care Team Providers Care President Ceo & Founder Name Role Phone Robles Goldsmith DO Unavailable [phone] Josefina Harris RN Unavailable [phone] Source Comments In the event this information is protected by the Federal Confidentiality of Alcohol and Drug AbusePatient Records regulations: The Federal rules restrict any use of the information to criminally investigate or prosecute any alcohol or drug abuse patient.[facility] Encounter Details Date Type Department Care Team (Late st Contact Info) Description 07/21/2023 Get Medical Advice [facility] [address] [place], [place] [phone] [place], [place] [address] [place] [address] referral for genetics testing Social [...] on filedocumented in this encounter Care Teams President Ceo & Founder Relationship Specialty Start Date End Date Robles Goldsmith DO [address] [address] Referring Obstetrics 10/13/22 [place] [address] [place] [address] Specialty Needle Board Repairer 04/12/24 documented as of this encounter
--- OUTSIDE RECORDS SUMMARY | 2024-09-12 16:32 | XMS_ITS | Encounter Summary ---
Author Organization [facility] Address [address] [place] [address] Care Team Providers Care Stretch Box Tender Name Role Phone Robles Goldsmith DO Unavailable [phone] Josefina Harris RN Unavailable [phone] Source Comments In the event this information is protected by the Federal Confidentiality of Alcohol and Drug AbusePatient Records regulations: The Federal rules restrict any use of the information to criminally investigate or prosecute any alcohol or drug abuse patient.[facility] Encounter Details Date Type Department Care Team (Latest Contact Info) Description 01/13/2024 Patient Msg Reproductive Endocrinology Infertility [address] [place] [address] Shaina Parr MD [address] [place] [address] Appointment Request Social History Tobacco [...] is lower risk 4 12/21/2023 Data from: https://www.neighborhoodatlas.[facility]/. Last address used for calculation [address] 12/21/2023 Comments No Sex and [...] on filedocumented in this encounter Care Teams Stretch Box Tender Relationship Specialty Start Date End Date Robles Goldsmith DO [address] [place] [address] Referring Obstetrics 10/13/22 [place] [address] [address] [place], [place] [phone] Specialty Combination Technician 04/12/24 documented as of this encounter
--- OUTSIDE RECORDS SUMMARY | 2024-09-12 16:32 | XMS_ITS | Encounter Summary ---
Author Organization [facility] Address [address] [place] [address] Care Team Providers Care Career Services Officer Name Role Phone Omer Velazquez MD Primary Care Provider [phone] Encounter Details Date Type Department Care Team (Late st Contact Info) Description 05/19/2024 Telephone [facility] [address] [place] [address] Gaye Hollis LPN [address] [place] [phone] Social History Tobacco Use Types Packs/Day Years [...] AM EDT Routine [facility] [address] [facility] [place] [address] Saravanan Ahumada, DO [address] [facility] [place] [address] 07/24/2025 9:15 AM EDT Office Visit [facility] [address] [place] [address] Scheduled Orders Name Type Priority Associated Diagnoses [...] documented as of this encounter Care Teams Career Services Officer Relationship Specialty Start Date End Date Omer Velazquez MD [address] [place] [address] PCP - General Internal Medicine 10/05/22 documented as of this encounter
--- OUTSIDE RECORDS SUMMARY | 2024-09-12 16:32 | XMS_ITS | Encounter Summary ---
Author Organization [facility] Address [address] [place] [address] Care Team Providers Care Fruit Or Nut Crops Farm Manager Name Role Phone Omer Velazquez MD Primary Care Provider [phone] Encounter Details Date Type Department Care Team (Late st Contact Info) Description 06/19/2024 Abstract [facility] [address] [place] [address] Saravanan Ahumada, DO [address] [place], [facility]11 Social History Tobacco Use Types Packs/Day [...] [address] [facility] [place] [address] Saravanan Ahumada, DO [address] [facility] [place] [address] 07/24/2025 9:15 AM EDT Office Visit [facility] [address] [place] [address] documented as of this encounter Goals Goal Patient Goal Type Associated Problems Recent Progress Patient-Stated? Author Reminders Care Plan OB Reminders No Open Scheduling, Background documented as of this encounter Visit Diagnoses Not on filedocumented in this encounter Additional Health Concerns Active Problems Noted Date Diagnosed Date OB Reminders 04/30/2024 documented as of this encounter Care Teams Fruit Or Nut Crops Farm Manager Relationship Specialty Start Date End Date Omer Velazquez MD [address] [place] [address] PCP - General Internal Medicine 10/05/22 documented as of this encounter
--- OUTSIDE RECORDS SUMMARY | 2024-09-12 16:32 | XMS_ITS ---
Author Organization [facility] (ClinicalSummary Clone) Address Unknown Care Team Providers Care Statue Maker Name Role Phone Unavailable Primary Care Physician Unavailab le Results * [UNITY] ANEUPLOIDY NIPT Performed by: [facility] Component Value Range Date Fraction 4.3% 05/22/2024 [...]
--- OUTSIDE RECORDS SUMMARY | 2024-09-12 16:32 | XMS_ITS | Encounter Summary ---
Author Organization [facility] Address [address] [place] [address] Care Team Providers Care Digital Media Coordinator Name Role Phone Omer Velazquez MD Primary Care Provider [phone] Encounter Details Date Type Department Care Team (Late st Contact Info) Description 05/23/2024 Abstract [facility] OB [address] [facility] [place] [address] Kayla Ashley LPN Social History Tobacco [...] EDT Routine [facility] BCP OB [address] [facility] [place] [address] Saravanan Ahumada, [address] [facility] [place] [address] 07/24/2025 9:15 AM EDT Office Visit [facility] [address] [place] [address] documented as of this encounter Goals Goal Patient Goal Type Associated Problems Recent Progress Patient-Stated? Author Reminders Care Plan OB Reminders No Open Scheduling, Background documented as of this encounter Visit Diagnoses Not on filedocumented in this encounter Additional Health Concerns Active Problems Noted Date Diagnosed Date OB Reminders 04/30/2024 documented as of this encounter Care Teams Digital Media Coordinator Relationship Specialty Start Date End Date Omer Velazquez MD [address] [place] [address] PCP - General Internal Medicine 10/05/22 documented as of this encounter
--- OUTSIDE RECORDS SUMMARY | 2024-09-12 16:32 | XMS_ITS | Clinical Summary ---
Author Organization [facility] Address [address] [place] [address] Care Team Providers Care Abalone Sheller Name Role Phone Robles Goldsmith Benitez DO Unavailable Josefina Harris RN Unavailable [phone] Allergies No known active allergies Medications PNV no.95/ferrous fum/folic ac ( ORAL) Take 1 tablet by mouth once daily. Active progesterone micronized (PROMETRIUM) 200 mg capsule Use 1 capsule vaginally two times a day. 180 capsule 10/26/19 24 025 Discontinued metFORMIN ER (GLUCOPHAGE XR) 500 mg 24 hr tablet Take 3 tablets by mouth daily with breakfast. Start with 1 tablet daily and slowly increase the dose up to 3 tablets daily. 90 tablet 11 02/17/20 24 025 Discontinued Active Problems Problem Noted Date Diagnosed Date [...] Encounters Date Type Department Care Team Description 09/11/2024 9:00 AM EDT [facility] Endocrinology [address] [place] [address] Mirta Valderrama MD Monoallelic mutation of SDHA gene (Primary Dx); Gestational diabetes mellitus (GDM) in third trimester, gestational diabetes method of control unspecified (HCC) 09/11/2024 Travel 09/05/2024 1:45 PM EDT Office Visit Otolarynogology [address] [phone] [place] Laboy MD 09/05/2024 Travel 06/30/2024 Patient Msg Otolaryngology [address] [phone] Josefina Harris RN SDHA follow up from [...] is lower risk 4 12/21/2023 Data from: https://www.neighborhoodatlas.medicine.[facility].edu/. Last address used for calculation [address] [place] [address] Rd 12/21/2023 Comments Yes Sex and Gender [...] 01/04/2023 8:44 AM EDT Plan of Treatment Health Maintenance Due Date Last Done Comments Depression Screening 2013 Cervical Cancer Screening 2016 Covid-19 Vaccine (2023-2 5 season) 2023 Influenza Vaccine (Season Ended) 2024 01/31/20 15, 02/13/2009 DTaP,Tdap,Td Vaccine (7 - Td or [...] (Ag/Ab) Nonreactive Nonreactive 09/13/2023 9:15 PM EDT [facility] HIV-1/2 AB (Confirmatory) 09/13/2023 9:15 PM EDT [facility] Comment:Test not indicated. HIV Interpretation 09/13/2023 9:15 PM EDT [facility] Comment: No evidence of HIV-1 or HIV-2 infection. Should recent infection be suspected, repeat testing may be considered 2-3 weeks after this draw. [place] Rev. Code 3701.243(E): This information has been [...] EDT 09/13/2023 8:52 AM EDT Haritha Casiano APRN.[facility] Final R esult Performing Organization Address City/[facility] Co de Phone Number [facility] [place] [address], * HEPATITIS C ANTIBODY IA WITH CONFIRMATION (09/13/2023 8:52 AM EDT) [facility] Hep C Antibody IA Negative Negative 09/13/2023 9:06 PM EDT [facility] Comment:The result suggests no evidence of active infection with Hepatitis C virus. Should recent infection be suspected, repeat testing may be considered 4-6 weeks after this draw. Blood BLOOD SPECIMEN / Unknown Venipuncture / Unknown 09/13/2023 8:52 AM EDT 09/13/2023 8:52 AM EDT Haritha Casiano APRN.[facility] Final R esult [facility] [place] [address], from Last 3 Months or Most Recently Relevant to Health Maintenance Insurance [employer] [facility] Care Teams Abalone Sheller Relationship Specialty Start Date End Date Robles Goldsmith DO [address] [facility] [address] [place] [address] Referring Obstetrics 10/13/22 Josefina Harris, ARIC [address] [place] [address] Specialty Chart Calculator 04/12/24
--- OUTSIDE RECORDS SUMMARY | 2024-09-12 16:32 | XMS_ITS | Encounter Summary ---
Author Organization [facility] Address [address] [place] [address] Care Team Providers Care Customer Success Director Name Role Phone Omer Velazquez MD Primary Care Provider Encounter Details Date Type Department Care Team (Late st Contact Info) Description 06/07/2024 Abstract [facility] OB [address] [place] [address] Saravanan Ahumada, DO [address] [place] [address] Social History Tobacco Use Types Packs/Day Years [...] AM EDT Routine [facility] B[facility] OB [address] [place] [address] Saravanan Ahumada, DO [address] [facility] [place] [address] 07/24/2025 9:15 AM EDT Office Visit [facility] [address] [place] [address] documented as of this encounter Goals Goal Patient Goal Type Associated Problems Recent Progress Patient-Stated? Author Reminders Care Plan OB Reminders No Open Scheduling, Background documented as of this encounter Visit Diagnoses Not on filedocumented in this encounter Additional Health Concerns Active Problems Noted Date Diagnosed Date OB Reminders 04/30/2024 documented as of this encounter Care Teams Customer Success Director Relationship Specialty Start Date End Date Omer Velazquez MD [address] [place] [address] PCP - General Internal Medicine 10/05/22 documented as of this encounter
--- OUTSIDE RECORDS SUMMARY | 2024-09-12 16:32 | XMS_ITS | Encounter Summary ---
Author Organization [facility] Address [address] [id number] Care Team Providers Care Solid Waste Technician Name Role Phone Robles Goldsmith DO Unavailable [phone] Josefina Harris RN Unavailable [phone] Source Comments In the event this information is protected by the Federal Confidentiality of Alcohol and Drug AbusePatient Records regulations: The Federal rules restrict any use of the information to criminally investigate or prosecute any alcohol or drug abuse patient.[facility] Encounter Details Date Type Department Care Team (Late st Contact Info) Description 06/18/2023 Patient [facility] [address] [place] [address] Fina Davalos, [address] [address] Appointment scheduling Social History Tobacco [...] on filedocumented in this encounter Care Teams Solid Waste Technician Relationship Specialty Start Date End Date Robles Goldsmith DO [address] [facility] [address] [place] [address] Referring Obstetrics 10/13/22 [place] [address] [place] [address] Specialty Manager Unit 04/12/24 documented as of this encounter
--- OUTSIDE RECORDS SUMMARY | 2024-09-12 16:32 | XMS_ITS | Encounter Summary ---
Author Organization [facility] Address [address] [place] [address] Care Team Providers Care Steel Rod Buster Name Role Phone Robles Goldsmith DO Unavailable [phone] Josefina Harris RN Unavailable [phone] Source Comments In the event this information is protected by the Federal Confidentiality of Alcohol and Drug AbusePatient Records regulations: The Federal rules restrict any use of the information to criminally investigate or prosecute any alcohol or drug abuse patient.[facility] Encounter Details Date Type Department Care Team (Late st Contact Info) Description 2024 Patient Msg Reproductive Endocrinology Infertility [address] [place], [place] [id number] Haritha Casiano APRN.SIZING MACHINE TENDER [address] [place] [address] Congratulations!!! Social History Tobacco Use Types Packs/Day [...] is lower risk 4 12/21/2023 Data from: https://www.neighborhoodatlas.[facility].edu/. Last address used for calculation [address] 12/21/2023 Comments Yes Sex and Gender Information Value Date Recorded Sex Assigned at Female 01/04/2023 6:38 PM EDT Legal Sex Female 10:39 AM EDT Gender Identity Female 01/04/2023 6:38 PM EDT Sexual Orientation Not on file documented as of this encounter Plan of Treatment Not on file documented as of this encounter Visit Diagnoses Not on filedocumented in this encounter Care Teams Steel Rod Buster Relationship Specialty Start Date End Date Robles Goldsmith DO [address] [place] [address] Referring Obstetrics 10/13/22 [place] [address] [address] [place], [place] [id number] Specialty Track Machine Operator Repairer 04/12/24 documented as of this encounter
--- OUTSIDE RECORDS SUMMARY | 2024-09-12 16:32 | XMS_ITS | Encounter Summary ---
Author Organization [facility] Address [address] [place] [address] Care Team Providers Care Carpet Binder Name Role Phone Omer Velazquez MD Primary Care Provider [phone] Encounter Details Date Type Department Care Team (Late st Contact Info) Description 08/30/2024 Bamboo flowsheet [facility] OB [address] [place] [address] Saravanan Ahumada, DO [address] [place], [facility] Social History Tobacco Use Types Packs/Day Years [...] AM EDT Routine [facility] OB [address] [facility] [place] [address] Saravanan Ahumada, DO [address] [facility] [place] [address] 07/24/2025 9:15 AM EDT Office Visit [facility] [address] [place] [address] documented as of this encounter Goals Goal Patient Goal Type Associated Problems Recent Progress Patient-Stated? Author Reminders Care Plan OB Reminders No Open Scheduling, Background documented as of this encounter Visit Diagnoses Not on filedocumented in this encounter Additional Health Concerns Active Problems Noted Date Diagnosed Date OB Reminders 04/30/2024 documented as of this encounter Care Teams Carpet Binder Relationship Specialty Start Date End Date Omer Velazquez MD [address] [place] [address] PCP - General Internal Medicine 10/05/22 documented as of this encounter
--- OUTSIDE RECORDS SUMMARY | 2024-09-12 16:32 | XMS_ITS | Encounter Summary ---
Author Organization [facility] tem Address [id number] [address] [place] [address] Care Team Providers Care Software Business Analyst Name Role Phone Unavailable Primary Care Provider Unavailabl e Encounter Details Date Type Department Care Team (Late Contact Info) Description 09/06/2024 Orders Only Maternal- Medicine at [facility] [address] [place] [phone] Yesi Meade, COMPRESS TRUCKER-CNM [address], [address] [place] [address] Social History Tobacco Use Types Packs/Day Years [...] Department Care Team (Late Contact Info) Description 09/20/2024 11:00 AM EDT Telemedicine Maternal- Medicine at [facility] [address] [place] [address] Siria Rebolledo, COMPRESS TRUCKER-PRESSURE TANK OPERATOR [address] [place], [place] [id number] 10/16/2024 2:00 PM EDT Office Visit Maternal- Medicine at [facility] [address] [place] [address] Vy Pemberton MD [address], [address] [place] [address] documented as of this encounter Visit Diagnoses Not on filedocumented in this encounter
--- OUTSIDE RECORDS SUMMARY | 2024-09-12 16:32 | XMS_ITS | Encounter Summary ---
Author Organization [facility] Address [address] [place] [address] [place] [address] Care Team Providers Care Granulator Machine Operator Name Role Phone Omer Velazquez MD Primary Care Provider [phone] Encounter Details Date Type Department Care Team (Late st Contact Info) Description 08/24/2024 External Result Encounter [facility] External Department Unsolicited Jie Mccarthy, SHAMPOO ASSISTANT [address] [place] [address] Social History Tobacco Use Types Packs/Day Years [...] AM EDT Routine [facility] OB [address] [phone] Saravanan Ahumada, DO [address] [place] [address] 07/24/2025 9:15 AM EDT Office Visit [facility] [address] [place] [address] documented as of this encounter Goals Goal Patient Goal Type Associated Problems Recent Progress Patient-Stated? Author Reminders Care Plan OB Reminders No Open Scheduling, Background documented as of this encounter Procedures Procedure Name Priority Date/Time Associated Diagnosis Comments TRANSTHORACIC ECHO (TTE) COMPLETE 08/24/2024 12:39 PM EDT documented in this encounter Results * Transthoracic echo (TTE) complete (08/24/2024 12:39 PM EDT) Anatomical Region Laterality Modality Heart Ultrasound 08/24/2024 12:3 9 PM EDT Narrative 08/24/2024 6:36 PM EDT [facility] [address] [address] Echocardiogram Signed Patient: Lissa Rivas MR#: [id number] : 1995 Acct:[id number] Age/Sex: 29 / F ADM Date: 08/24/24 Loc: Room: Type: [facility] Attending Dr: Jie Mccarthy RN, MSN, ANP-C Ordering Provider: JIE MCCARTHY RN, MSN Date of Service: 08/24/24/ ECH/ECH echo transthoracic: Palpitations. Murmur. Copies to: MD SAMSON Mckeon MICHELE L RN, MSN Lsisa Bowen 12:39 PM Patient Location: EL : 1995 Gender: Female (MM/DD/YYYY) Age: 29 Years Ordering Physician: Jie Mccarthy Height: 62.99 in Weight: 225.004 lb Performed By: Jailene Abbasi RDCS BSA: 2.03 m2 HR: 93 bpm Reason For Study: Palpitations. Murmur. History: 28 weeks . + + Interpretation Summary Ejection Fraction = 60-65%. The left ventricular wall motion is normal. A variety of Doppler measurements indicate normal left ventricular diastolic function. Normal transthoracic echocardiogram. Procedure/Quality: A two-dimensional transthoracic echocardiogram with color flow and Doppler was performed. The study was technically good in quality. Left Ventricle: The left ventricular size is normal. The left ventricular thickness is normal. Ejection Fraction = 60-65%. A variety of Doppler measurements indicate normal left ventricular diastolic function. The left ventricular wall motion is normal. Left Atrium: The left atrium appears normal in size. Right Atrium: The right atrium appears normal in size. Right Ventricle: The right ventricle is normal in size and function. Aortic Valve: The aortic valve is normal in structure. No hemodynamically significant valvular aortic stenosis. No aortic regurgitation is present. Mitral Valve: The mitral valve is normal in structure. No significant mitral valve stenosis. There is no mitral regurgitation noted. Tricuspid Valve: The tricuspid valve is normal in structure. No tricuspid regurgitation. Pulmonic Valve: The pulmonic valve is not well visualized. No significant pulmonic regurgitation. Arteries: The aortic root is normal size. Pericardium/Pleura: No pericardial effusion seen. IVC/Hepatic Veins: The inferior vena cava is normal in size, with a normal collapsibility index. MMode/2D Measurements Calculations IVSd (0.7-1.1 cm): 0.92 cm LVIDd (3.7-5.4 cm): 5.0 cm LVPWd (0.7-1.1 cm): 0.91 cm LVIDs (2.3-3.6 cm): 3.4 cm LA dimension (2.3-4.0 cm): 4.5 Ao root diam (2.0-3.2 cm): 3.0 cm cm FS: 31.8 % Ao root area: 6.9 cm2 EDV(Teich): 120.5 ml LVOT diam: 2.03 cm ESV(Teich): 48.8 ml LVOT area: 3.2 cm2 EF(Teich): 59.5 % LAV(MOD-sp2): 35.0 ml LAV(MOD-sp4): 36.0 ml LA A2 area: 14.3 cm2 LA A4 area: 14.6 cm2 LA length (vol): 4.8 cm LA vol: 37.1 ml LA vol index: 18.2 ml/m2 Doppler Measurements Calculations MV E max bernice: 98.5 cm/sec Ao V2 max: 148.0 cm/sec MV A max bernice: 59.2 cm/sec Ao max P.8 mmHg MV V2 VTI: 33.2 cm Ao mean P.5 mmHg MV dec time: 0.15 sec Ao V2 mean: 113.5 cm/sec MV dec slope: 677.9 cm/sec Ao V2 VTI: 24.6 cm E/E' lat: 9.0 LASHAE(I,D): 2.5 cm2 E/E' med: 11.0 LASHAE(V,D): 2.08 cm2 TV max P.0 mmHg LV V1 max: 95.2 cm/sec TR max bernice: 257.9 cm/sec LV V1 max P.6 mmHg TR max P.6 mmHg LV V1 mean: 64.2 cm/sec LV V1 mean P.88 mmHg LV V1 VTI: 19.2 cm + + + + + : Electronically : : signed by: Iveth : : : : Toña : : : : on: 08/24/2024, : : 6:35 PM : Transcribed By: HERNAN Performed At: 08/24/24 1239 Signed By: Iveth Ding MD 08/24/24 1835 Procedure Note Iveth Ding MD - 08/24/2024 [place] [address] Echocardiogram Signed Patient: Lissa Rivas FMR#: [id number] : 1995Acct:[id number] Age/Sex: Date: 08/24/24 Loc: Room:Type: [facility] Attending Dr: Jie Mccarthy RN, MSN, ANP-C Ordering Provider: JIE MCCARTHY RN, MSN Date of Service: 08/24/24/ ECH/ECH echo transthoracic: Palpitations.Murmur. Copies to: MD SAMSON Mckeon MICHELE L RN, MSN Lissa Bowen 12:39 PM Patient Location: : 1995 Gender: Female (MM/DD/YYYY) Age: 29 Years Ordering Physician: Jie Mccarthy Height: 62.99 in Weight: 225.004 lb Performed By: Jailene Abbasi RDCS BSA: 2.03 m2 HR: 93 bpm Reason For Study: Palpitations. Murmur. History: 28 weeks . + + Interpretation Summary Ejection Fraction = 60-65%. The left ventricular wall motion is normal. A variety of Doppler measurements indicate normal left ventricular diastolic function. Normal transthoracic echocardiogram. Procedure/Quality: A two-dimensional transthoracic echocardiogram with color flow and Doppler was performed. The study was technically good in quality. Left Ventricle: The left ventricular size is normal. The left ventricular thickness is normal. Ejection Fraction = 60-65%. A variety of Doppler measurements indicate normal left ventricular diastolic function. The left ventricular wall motion is normal. Left Atrium: The left atrium appears normal in size. Right Atrium: The right atrium appears normal in size. Right Ventricle: The right ventricle is normal in size and function. Aortic Valve: The aortic valve is normal in structure. No hemodynamically significant valvular aortic stenosis. No aortic regurgitation is present. Mitral Valve: The mitral valve is normal in structure. No significant mitral valve stenosis. There is no mitral regurgitation noted. Tricuspid Valve: The tricuspid valve is normal in structure. No tricuspid regurgitation. Pulmonic Valve: The pulmonic valve is not well visualized. No significant pulmonic regurgitation. Arteries: The aortic root is normal size. Pericardium/Pleura: No pericardial effusion seen. IVC/Hepatic Veins: The inferior vena cava is normal in size, with a normal collapsibility index. MMode/2D Measurements Calculations IVSd (0.7-1.1 cm): 0.92 cm LVIDd (3.7-5.4 cm): 5.0 cm LVPWd (0.7-1.1 cm): 0.91 cm LVIDs (2.3-3.6 cm): 3.4 cm LA dimension (2.3-4.0 cm): 4.5 Ao root diam (2.0-3.2 cm): 3.0 cm cm FS: 31.8 % Ao root area: 6.9 cm2 EDV(Teich): 120.5 ml LVOT diam: 2.03 cm ESV(Teich): 48.8 ml LVOT area: 3.2 cm2 EF(Teich): 59.5 % LAV(MOD-sp2): 35.0 ml LAV(MOD-sp4): 36.0 ml LA A2 area: 14.3 cm2 LA A4 area: 14.6 cm2 LA length (vol): 4.8 cm LA vol: 37.1 ml LA vol index: 18.2 ml/m2 Doppler Measurements Calculations MV E max bernice: 98.5 cm/sec Ao V2 max: 148.0 cm/sec MV A max bernice: 59.2 cm/sec Ao max P.8 mmHg MV V2 VTI: 33.2 cm Ao mean P.5 mmHg MV dec time: 0.15 sec Ao V2 mean: 113.5 cm/sec MV dec slope: 677.9 cm/sec Ao V2 VTI: 24.6 cm E/E' lat: 9.0 LASHAE(I,D): 2.5 cm2 E/E' med: 11.0 LASHAE(V,D): 2.08 cm2 TV max P.0 mmHg LV V1 max: 95.2 cm/sec TR max bernice: 257.9 cm/sec LV V1 max P.6 mmHg TR max P.6 mmHg LV V1 mean: 64.2 cm/sec LV V1 mean P.88 mmHg LV V1 VTI: 19.2 cm + + + + + : Electronically: : signed by: Iveth: :: : Toña: :: : on: 08/24/2024,: : 6:35 PM: Transcribed By: HERNAN Performed At: 08/24/24 1239 Signed By: Iveth Ding MD 08/24/24 9058 us Jie Mccarthy SHAMPOO ASSISTANT CV ECHO PROCEDURES Final Res ult documented in this encounter Visit Diagnoses Not on filedocumented in this encounter Additional Health Concerns Active Problems Noted Date Diagnosed Date OB Reminders 04/30/2024 documented as of this encounter Care Teams Granulator Machine Operator Relationship Specialty Start Date End Date Omer Velazquez MD [address] [place] [address] PCP - General Internal Medicine 10/05/22 documented as of this encounter
--- OUTSIDE RECORDS SUMMARY | 2024-09-12 16:32 | XMS_ITS | Encounter Summary ---
Author Organization [facility] Address [address] [place] [address] Care Team Providers Care Machine Learning Intern Name Role Phone Robles Goldsmith DO Unavailable [phone] Josefina Harris RN Unavailable [phone] Source Comments In the event this information is protected by the Federal Confidentiality of Alcohol and Drug AbusePatient Records regulations: The Federal rules restrict any use of the information to criminally investigate or prosecute any alcohol or drug abuse patient.[facility] Encounter Details Date Type Department Care Team (Late st Contact Info) Description 02/04/2023 Patient Msg Reproductive Endocrinology Infertility [address] [place] [address] Haritha Casiano APRN.CANINE SERVICE INSTRUCTOR TRAINER [address] [place] [address] Next steps Social History Tobacco Use Types [...] filedocumented in this encounter Care Teams Machine Learning Intern Relationship Specialty Start Date End Date Robles Goldsmith DO [address] [facility] [address] [place] [address] Referring Obstetrics 10/13/22 [place] [address] [place] [address] Specialty Roll Winder 04/12/24 documented as of this encounter
--- OUTSIDE RECORDS SUMMARY | 2024-09-12 16:32 | XMS_ITS | Encounter Summary ---
Author Organization [facility] Address [address] [place] [address] Care Team Providers Care Insurance Customer Service Specialist Name Role Phone Robles Goldsmith DO Unavailable [phone] Josefina Harris RN Unavailable [phone] Source Comments In the event this information is protected by the Federal Confidentiality of Alcohol and Drug AbusePatient Records regulations: The Federal rules restrict any use of the information to criminally investigate or prosecute any alcohol or drug abuse patient.[facility] Encounter Details Date Type Department Care Team (Latest Contact Info) Description 02/23/2023 Get Medical Advice Reproductive Endocrinology Infertility [address] [place] [address] Shaina Parr MD [address] [place], [place] [phone] Fax blood work order Social History Tobacco [...] on filedocumented in this encounter Care Teams Insurance Customer Service Specialist Relationship Specialty Start Date End Date Robles Goldsmith DO [address] [facility] [address] [place] [address] Referring Obstetrics 10/13/22 [place] [address] [place] [address] Specialty Clerical Dentist Assistant 04/12/24 documented as of this encounter
--- OUTSIDE RECORDS SUMMARY | 2024-09-12 16:32 | XMS_ITS | Encounter Summary ---
Author Organization [facility] Address [address] [place] [address] Care Team Providers Care Quality Assurance Inspector Name Role Phone Robles Goldsmith DO Unavailable [phone] Josefina Harris RN Unavailable [phone] Source Comments In the event this information is protected by the Federal Confidentiality of Alcohol and Drug AbusePatient Records regulations: The Federal rules restrict any use of the information to criminally investigate or prosecute any alcohol or drug abuse patient.[facility] Encounter Details Date Type Department Care Team (Latest Contact Info) Description 11/19/2023 Patient Msg Reproductive Endocrinology Infertility [address] [place] [address] Shaina Parr MD [address] [place], [place] [phone] Appointment Request Social History Tobacco Use Types [...] on filedocumented in this encounter Care Teams Quality Assurance Inspector Relationship Specialty Start Date End Date Robles Goldsmith DO [address] [facility] [address] [place] [address] Referring Obstetrics 10/13/22 [place] [address] [place] [address] Specialty Renal Social Worker 04/12/24 documented as of this encounter
--- OUTSIDE RECORDS SUMMARY | 2024-09-12 16:32 | XMS_ITS | Encounter Summary ---
Author Organization [facility] Address [address] [place] [address] Care Team Providers Care Foil Spinner Name Role Phone Omer Velazquez MD Primary Care Provider [phone] Encounter Details Date Type Department Care Team (Late st Contact Info) Description 05/23/[address] [facility] OB [address] [facility] [place] [address] Kayla Ashley LPN Social History Tobacco [...] AM EDT Routine [facility] BCP OB [address] [facility] [facility] [place] [address] Saravanan Ahumada, [address] [facility] [place] [address] 07/24/2025 9:15 AM EDT Office Visit [facility] [address] [place] [address] documented as of this encounter Goals Goal Patient Goal Type Associated Problems Recent Progress Patient-Stated? Author Reminders Care Plan OB Reminders No Open Scheduling, Background documented as of this encounter Visit Diagnoses Not on filedocumented in this encounter Additional Health Concerns Active Problems Noted Date Diagnosed Date OB Reminders 04/30/2024 documented as of this encounter Care Teams Foil Spinner Relationship Specialty Start Date End Date Omer Velazquez MD [address] [place] [address] PCP - General Internal Medicine 10/05/22 documented as of this encounter
--- OUTSIDE RECORDS SUMMARY | 2024-09-12 16:32 | XMS_ITS | Encounter Summary ---
Author Organization [facility] tem Address [id number] [address] [place] [address] Care Team Providers Care Geneticist Name Role Phone Unavailable Primary Care Provider Unavailabl e Encounter Details Date Type Department Care Team (Latest Contact Info) Description 09/12/2024 Travel Social History Tobacco Use Types Packs/Day [...] 11:00 AM EDT Telemedicine Maternal- Medicine at [facility] [address] [place] [address] Siria Rebolledo, CREDIT RISK ANALYTICS MANAGER-SALES COUNSELOR [address] [place] [address] 10/16/2024 2:00 PM EDT Office Visit Maternal- Medicine at [facility] [address] [place] [address] Vy Pemberton MD [address], [address] [place] [address] documented as of this encounter Visit Diagnoses Not on filedocumented in this encounter
--- OUTSIDE RECORDS SUMMARY | 2024-09-12 16:32 | XMS_ITS | Encounter Summary ---
Author Organization [facility] Address [address] [place] [address] Care Team Providers Care Entry Level Automotive Technician Name Role Phone Omer Velazquez MD Primary Care Provider [phone] Encounter Details Date Type Department Care Team (Late st Contact Info) Description 09/12/2024 Telephone [facility] BCP OB [address] [place] [address] Gaye Hollis LPN [address] [employer] [place] [phone] Social History Tobacco Use Types Packs/Day Years [...] Telephone Encounter - Gaye Hollis LPN - 09/12/2024 3:14 PM EDT Hi, my name is Ruthann Miller, I am a PA at maternal medicine at [facility], and I saw a patient of Dr. Turner today, Lissa Rivas, data 89. I saw her gestational diabetes,but she also had a mildly elevated blood pressure, initially with us today and then her recheck wasnormal, but she did have a headache over the weekend and kind of states she is just been feeling off, so I did have her check preeclampsia labs. However, she did want to get them done through you guys instead with us, so I just wanted to pass along if someone could keep an Eye out for those today. I know she did say she has an appointment with you guys tomorrow, so that is good that she will be getting her blood pressure check tomorrow as well. Feel free to call me back with any questions or tofollow up. I am at [phone]. Thank you. FYI documented in this encounter Plan of Treatment Upcoming Encounters Date Type Department Care Team (Late st Contact Info) Description 09/13/2024 11:30 AM EDT Routine [facility] [address] [facility] [place] [address] Saravanan Ahumada, DO [address] [facility] [place] [address] 07/24/2025 9:15 AM EDT Office Visit [facility] [address] [place] [address] documented as of this encounter Goals Goal Patient Goal Type Associated Problems Recent Progress Patient-Stated? Author Reminders Care Plan OB Reminders No Open Scheduling, Background documented as of this encounter Visit Diagnoses Not on filedocumented in this encounter Additional Health Concerns Active Problems Noted Date Diagnosed Date OB Reminders 04/30/2024 documented as of this encounter Care Teams Entry Level Automotive Technician Relationship Specialty Start Date End Date Omer Velazquez MD [address] [facility] [address] [place] [address] PCP - General Internal Medicine 10/05/22 documented as of this encounter
--- OUTSIDE RECORDS SUMMARY | 2024-09-12 16:32 | XMS_ITS | Encounter Summary ---
Author Organization [facility] tem Address [id number] [address] [place] [address] Care Team Providers Care Innersole Maker Name Role Phone Unavailable Primary Care Provider Unavailabl e Encounter Details Date Type Department Care Team (Late st Contact Info) Description 09/12/2024 Documentation Maternal- Medicine at [facility] [address] [place] [phone] Ruthann Miller PA-C [address] [address] Social History Tobacco Use Types Packs/Day Years [...] on file documented as of this encounter Progress Notes * Ruthann Miller PA-C - 09/12/2024 4:03 PM EDT Called and spoke with patient - she had the recommended pre-e labs done at [facility]. Patient had mild range BP then normal BP with us. Since getting home, patient denies KEYS, visual symptoms, N/V, SOB, chest pain. Does note some swelling in hands. She checked her BP at home while on phone and it was 141/82 - states she has always gotten BP in 120s when taking BP on this cuff. Due to newly elevated blood pressure now twice today, recommended she got to OB triage near her. She will go to [facility]. I called and spoke with RN in triage - informed that patient had CMP and CBC already drawn, but that urine sample was not taken. Recommend BP monitoring and evaluation of pre-e labs. Contact stated they would inform Dr Ahumada upon arrival of patient to hospital. Ruthann Miller PA-C 09/12/24 1608 documented in this encounter Plan of Treatment Upcoming Encounters Date Type Department Care Team (Late st Contact Info) Description 09/20/2024 11:00 AM EDT Telemedicine Maternal- Medicine at [facility] [address] [place] [address] Siria Rebolledo, DEBBIE-LAB INSTRUCTOR [address] [place] [address] 10/16/2024 2:00 PM EDT Office Visit Maternal- Medicine at [facility] [address] [place] [address] Vy Pemberton MD [address] [address] documented as of this encounter Visit Diagnoses Not on filedocumented in this encounter
--- OUTSIDE RECORDS SUMMARY | 2024-09-12 16:32 | XMS_ITS | Clinical Summary ---
Author Organization [email or web address] Address [id number] [address] [place] [address] Care Team Providers Care Flyer Maker Name Role Phone Unavailable Primary Care Provider Unavailabl e Allergies No known active allergies Medications [id number] ic acid ( 19) 29 mg iron- 1 mg tablet,chewabl e Chew 1 tablet and swallow in the morning. Active fluticasone propionate (FLONASE) 50 mcg/actuation nasal spray Administer 1 spray into each nostril in the morning. Active progesterone (PROMETRIUM) 200 mg capsule Take 1 capsule (200 mg total) by mouth in the morning. Active medroxyPROGEST ERone (PROVERA) 10 mg tablet Take 1 tablet (10 mg total) by mouth in the morning. Active blood-glucose sensor (DEXCOM G7 SENSOR) deviceIndicati ons:Gestationa l diabetes requiring insulin,Elevat ed blood pressure affecting , antepartum Use to monitor blood glucose. Change every 10 days 5 each 09/13/19 25 Active insulin glargine (LANTUS SOLOSTAR U-100 INSULIN) 100 unit/mL (3 mL) insulin penIndications :Gestational diabetes requiring insulin Inject 12 units every evening. Prime with 2 units. 15 mL 2 09/13/19 25 Active letrozole (FEMARA) 2.5 mg chemo tablet Take 1 tablet by mouth daily 025 Discontinued metFORMIN XR (GLUCOPHAGE XR) 500 mg 24 hr tablet Take 1 tablet (500 mg total) by mouth daily with breakfast. 025 Discontinued metFORMIN XR (GLUCOPHAGE XR) 500 mg 24 hr tablet Take 1 tablet (500 mg total) by mouth Every 12 (twelve) hours. 09/06/19 25 025 Discontinued(Charlie macias Never Started This Medication) Active Problems Problem Noted Date Diagnosed Date Insulin controlled gestation al diabetes mellitus (GDM) in third trimester 09/12/2024 Abnormal liver enzymes 09/12/2024 Elevated blood pressure affecting , ant epartum 09/12/2024 Estimated Date of Delivery Comme nts Yes 11/19/2024 Based on last me nstrual period of 02/13/2024 Encounters Date Type Department Care Team Description 09/12/2024 10:00 AM EDT Office Visit [facility]- [facility] at [facility] [address] [place] [address] Ruthann Miller PA-C Insulin controlled gestational diabetes mellitus (GDM) in third trimester; Abnormal liver enzymes; Abnormal genetic test; Gestational diabetes requiring insulin; Elevated blood pressure affecting , antepartum 09/12/2024 Documentation [facility]- [facility] at [facility] [address] [place] [address] Ruthann Miller PA-C 09/12/2024 Travel 09/06/2024 Orders Only [facility] at [facility] [address] [place] [address] Yesi Meade APRN-JASVIR 09/05/2024 Telephone [facility]- [facility] at [facility] [address] [place] [address] Aranza Beltran RN 09/05/2024 Orders Only [facility]- [facility] at [facility] [address] [place] [address] Jackson Cruz MD 08/31/2024 1:30 PM EDT Support Visit [facility]- Medicine at [facility] [address] [place] [address] Cristiana Zuñiga, RN Nereyda Bishop LD Gestational diabetes mellitus (GDM) in third trimester, gestational diabetes method of control unspecified (Primary Dx) 08/31/2024 Travel 08/30/2024 Orders Only [facility]- Medicine at [facility] [address] [place] [address] Ref Prov, Not In System 08/30/2024 Abstract [facility]- Medicine at [facility] [address] [facility] [place] [address] External, Scanning Provider from Last 3 Months Family History Medical History Relation Name Comments Asthma Father Atrial fibrillation Father COPD Father Diabetes Father Heart disease Father Hyperlipidemia Father Hypertension Father Kidney disease Father Stroke Father Farrukh Breast Cancer Maternal Aunt Farrukh Breast Cancer Maternal Grandmother Lung cancer Maternal Uncle Prostate cancer Maternal Uncle Hypertension Mother Arthritis Paternal Grandmother Atrial fibrillation Paternal Grandmother COPD Paternal Grandmother Diabetes Paternal Grandmother Heart disease Paternal Grandmother Stroke Paternal Grandmother Atrial fibrillation Sister Relation Name Status Comments Father Maternal Aunt Alive Maternal Grandmother Maternal Uncle Alive Mother Paternal Grandmother Sister Social History Tobacco Use Types Packs/Day [...] Mass Index 39.57 09/12/2024 10:08 AM EDT Plan of Treatment Upcoming Encounters Date Type Department Care Team (Late st Contact Info) Description 09/20/2024 11:00 AM EDT Telemedicine [facility]- Medicine at [facility] [address] [place] [id number] Siria Rebolledo APRN-[facility] [address] [place] [address] 10/16/2024 2:00 PM EDT Office Visit [facility]aternal- Medicine at [facility] [address] [place] [address] Vy Pemberton MD [address] [facility], [address] [place] [address] Health Maintenance Due Date Last Done Comments Depression Screening 2007 Adult BMI Follow Up Plan 2013 Influenza Vaccine 11/27/2024 01/30/2015, 02/13/2009 Adult BMI Screening 09/12/2025 09/12/2024 Tobacco Screening 09/12/2025 09/12/2024 Pap Smear 06/20/2027 06/19/2024 DTaP,Tdap and Td Vaccines (7 - Td or Tdap) 06/26/2032 06/26/2022, 08/10/2000, 08/04/1996, Additional history exists Medical Devices Not on file Procedures Procedure Name Priority Date/Time Associated Diagnosis Comments GLUCOSE RANDOM OR FASTING Routine 08/31/2024 Gestational diabetes mellitus (GDM) in third trimester, gestational diabetes method of control unspecified GLU 1H POST 50G LOAD Routine 08/23/2024 ULTRASOUND OFFICE Routine 06/19/2024 12: 52 PM EDT CHLAMYDIA/GC BY PCR CODY SWAB Routine 06/19/2024 from Last 3 Months Results * Glucose random or fasting- POCT (08/31/2024) External Glucose Fasting Or Random (Fbs) 99 MANUALLY TRANSCRIBED RESULTS Blood Venous blood / Unknown 08/31/2024 us Jackson Cruz MD LAB BLOOD ORDERABLES Final Re sult Performing Organization Address City/[facility]/ZIP Co de Phone Number MANUALLY TRANSCRIBED RESULTS * Glucose 1h post 50g load (08/23/2024) Glucose, 1 hr PP 50GM dose 181 MANUALLY TRANSCRIBED RESULTS Blood Venous blood / Unknown us Not In System Ref Prov LAB BLOOD ORDERABLES Breanna l Result Performing Organization Address [facility] Co de Phone Number MANUALLY TRANSCRIBED RESULTS * Ultrasound - Office (06/19/2024 12:52 PM EDT) Anatomical Region Laterality Modality AMB Ultrasound us Not In System Ref Prov IMG US ORDERABLES Final R esult * Chlamydia/GC by PCR Cody Swab (06/19/2024) Chlamydia Dna(Pcr) negative MANUALLY TRANSCRIBED RESULTS Gonorrhoeae Dna(Pcr) negative MANUALLY TRANSCRIBED RESULTS Swab us Not In System Ref Prov MICROBIOLOGY - GENERAL OR DERABLES Final Result Performing Organization Address [facility] de Phone Number MANUALLY TRANSCRIBED RESULTS from Last 3 Months Insurance [employer]
--- OUTSIDE RECORDS SUMMARY | 2024-09-12 16:32 | XMS_ITS | Encounter Summary ---
Author Organization [facility] Address [address] [place] [address] Care Team Providers Care Pastry Mixer Name Role Phone Robles Goldsmith DO Unavailable [phone] Josefina Harris RN Unavailable [phone] Source Comments In the event this information is protected by the Federal Confidentiality of Alcohol and Drug AbusePatient Records regulations: The Federal rules restrict any use of the information to criminally investigate or prosecute any alcohol or drug abuse patient.[facility] Encounter Details Date Type Department Care Team (Late st Contact Info) Description 11/22/2023 Patient Msg Reproductive Endocrinology Infertility [address] [place], [place] [phone] Provider, Ccf plan for 11/22/23 Social History [...] on filedocumented in this encounter Care Teams Pastry Mixer Relationship Specialty Start Date End Date Robles Goldsmith DO [address] [facility] [address] [place] [address] Referring Obstetrics 10/13/22 [place] [address] [place] [address] Specialty Maintenance Team Leader 04/12/24 documented as of this encounter
--- OUTSIDE RECORDS SUMMARY | 2024-09-12 16:32 | XMS_ITS | Encounter Summary ---
Author Organization [facility] Address [address] [place] [address] Care Team Providers Care Recreation Adviser Name Role Phone Omer Velazquez MD Primary Care Provider [phone] Encounter Details Date Type Department Care Team (Late st Contact Info) Description 06/19/2024 Abstract [facility] [address] [place] [address] Saravanan Ahumada, DO [address] [place], [id number] Social History Tobacco Use Types Packs/Day Years [...] OB [address] [address] Saravanan Ahumada, DO [address] [facility] [place] [address] 07/24/2025 9:15 AM EDT Office Visit [facility] [address] [place] [address] documented as of this encounter Goals Goal Patient Goal Type Associated Problems Recent Progress Patient-Stated? Author Reminders Care Plan OB Reminders No Open Scheduling, Background documented as of this encounter Visit Diagnoses Not on filedocumented in this encounter Additional Health Concerns Active Problems Noted Date Diagnosed Date OB Reminders 04/30/2024 documented as of this encounter Care Teams Recreation Adviser Relationship Specialty Start Date End Date Omer Velazquez MD [address] [place] [address] PCP - General Internal Medicine 10/05/22 documented as of this encounter
--- OUTSIDE RECORDS SUMMARY | 2024-09-12 16:32 | XMS_ITS | Encounter Summary ---
Author Organization [facility] Address [address] [place] [address] Care Team Providers Care Hims Manager Name Role Phone Omer Velazquez MD Primary Care Provider [phone] Encounter Details Date Type Department Care Team (Late st Contact Info) Description 05/22/2024 Abstract [facility] [address] [place] [address] Saravanan Ahumada, DO [address] [place], [facility]11 Social History Tobacco Use Types [...] EDT Routine [facility] [address] [facility] [address] Saravanan Ahumada, DO [address] [facility] [place] [address] 07/24/2025 9:15 AM EDT Office Visit [facility] [address] [place] [address] documented as of this encounter Goals Goal Patient Goal Type Associated Problems Recent Progress Patient-Stated? Author Reminders Care Plan OB Reminders No Open Scheduling, Background documented as of this encounter Visit Diagnoses Not on filedocumented in this encounter Additional Health Concerns Active Problems Noted Date Diagnosed Date OB Reminders 04/30/2024 documented as of this encounter Care Teams Hims Manager Relationship Specialty Start Date End Date Omer Velazquez MD [address] [place] [address] PCP - General Internal Medicine 10/05/22 documented as of this encounter
--- OUTSIDE RECORDS SUMMARY | 2024-09-12 16:32 | XMS_ITS | Encounter Summary ---
Author Organization [facility] Address [address] [place] [address] Care Team Providers Care Car Stower Name Role Phone Robles Goldsmith DO Unavailable [phone] Josefina Harris RN Unavailable [phone] Source Comments In the event this information is protected by the Federal Confidentiality of Alcohol and Drug AbusePatient Records regulations: The Federal rules restrict any use of the information to criminally investigate or prosecute any alcohol or drug abuse patient.[facility] Encounter Details Date Type Department Care Team (Latest Contact Info) Description 07/15/2023 Patient Msg Reproductive Endocrinology Infertility [address] [place] [id number] Provider, Ccf confidential appointment on 08/08 with [...] on filedocumented in this encounter Care Teams Car Stower Relationship Specialty Start Date End Date Robles Goldsmith DO [address] [address] Referring Obstetrics 10/13/22 Josefina Harris, ARIC [address] [place] [address] Specialty Trench Pipe Layer Helper 04/12/24 documented as of this encounter
--- OUTSIDE RECORDS SUMMARY | 2024-09-12 16:33 | XMS_ITS | Encounter Summary ---
Author Organization [facility] Address [address] [place] [address] Care Team Providers Care Photocopying Equipment Mechanic Name Role Phone Robles Goldsmith Benitez DO Unavailable [phone] Josefina Harris RN Unavailable [phone] Source Comments In the event this information is protected by the Federal Confidentiality of Alcohol and Drug AbusePatient Records regulations: The Federal rules restrict any use of the information to criminally investigate or prosecute any alcohol or drug abuse patient.[facility] Encounter Details Date Type Department Care Team (Late st Contact Info) Description 09/02/2023 Get Medical Advice Endocrinology [address] [place] [address] Mirta Valderrama MD [address] [place] [address] Follow up questions Social History [...] ovaries documented in this encounter Care Teams Photocopying Equipment Mechanic Relationship Specialty Start Date End Date Robles Goldsmith DO [address] [phone] Referring Obstetrics 10/13/22 [place] [address] [place] [address] Specialty Billet Examiner 04/12/24 documented as of this encounter
--- OUTSIDE RECORDS SUMMARY | 2024-09-12 16:33 | XMS_ITS | Encounter Summary ---
Author Organization [facility] Address [address] [place] [address] Care Team Providers Care Electric Meter Repairer Helper Name Role Phone Omer Velazquez MD Primary Care Provider [phone] Encounter Details Date Type Department Care Team (Late Contact Info) Description 01/13/2023 Orders Only [facility] [address] [place] [address] Shelby Hernandez PA [address] [place] [address] Social History Tobacco Use Types Packs/Day Years [...] [facility] [place] [phone] Saravanan Ahumada, DO [address] [place], [place] [id number] 07/24/2025 9:15 AM EDT Office Visit [facility] [address] [place] [address] documented as of this encounter Visit Diagnoses Not on filedocumented in this encounter Care Teams Electric Meter Repairer Helper Relationship Specialty Start Date End Date Omer Velazquez MD [address] [place] [address] PCP - General Internal Medicine 10/05/22 documented as of this encounter
--- OUTSIDE RECORDS SUMMARY | 2024-09-12 16:33 | XMS_ITS | Encounter Summary ---
Author Organization [facility] Address [address] [place] [address] Care Team Providers Care Certified Marine Mechanic Name Role Phone Robles Goldsmith DO Unavailable [phone] Josefina Harris RN Unavailable [phone] Source Comments In the event this information is protected by the Federal Confidentiality of Alcohol and Drug AbusePatient Records regulations: The Federal rules restrict any use of the information to criminally investigate or prosecute any alcohol or drug abuse patient.[facility] Encounter Details Date Type Department Care Team (Late st Contact Info) Description 01/13/2023 Patient Msg Reproductive Endocrinology Infertility [address] [place], [place] [phone] Provider, Ccf Bloodwork results Social History Tobacco [...] on filedocumented in this encounter Care Teams Certified Marine Mechanic Relationship Specialty Start Date End Date Robles Goldsmith DO [address] [facility] [address] [place] [address] Referring Obstetrics 10/13/22 [place] [address] [place] [address] Specialty Abstractor 04/12/24 documented as of this encounter
--- OUTSIDE RECORDS SUMMARY | 2024-09-12 16:33 | XMS_ITS | Encounter Summary ---
Author Organization [facility] Address [address] [place] [address] Care Team Providers Care Applications Architect Name Role Phone Omer Velazquez MD Primary Care Provider [phone] Encounter Details Date Type Department Care Team (Late st Contact Info) Description 05/01/2024 Abstract [facility] [address] [place] [address] Saravanan Ahumada, DO [address] [place], [facility]11 Social History Tobacco Use Types Packs/Day [...] [address] [facility] [place] [address] Saravanan Ahumada, DO [address] [facility] [place] [address] 07/24/2025 9:15 AM EDT Office Visit [facility] [address] [place] [address] documented as of this encounter Goals Goal Patient Goal Type Associated Problems Recent Progress Patient-Stated? Author Reminders Care Plan OB Reminders No Open Scheduling, Background documented as of this encounter Visit Diagnoses Not on filedocumented in this encounter Additional Health Concerns Active Problems Noted Date Diagnosed Date OB Reminders 04/30/2024 documented as of this encounter Care Teams Applications Architect Relationship Specialty Start Date End Date Omer Velazquez MD [address] [place] [address] PCP - General Internal Medicine 10/05/22 documented as of this encounter
--- OUTSIDE RECORDS SUMMARY | 2024-09-12 16:33 | XMS_ITS | Clinical Summary ---
Author Organization [facility] Address [address] [place] [address] Care Team Providers Care General Passenger Agent Name Role Phone Lito Guerrero MD Primary Care Provider [phone] Allergies No known active allergies Medications cholecalciferol (Vitamin D-3) 50 MCG (1999) tablet Take 2 tablets by mouth in the morning. Active MV-Min-Fe Fum-FA-DHA ( 1 PO) Take by mouth Active ammonium lactate (Amlactin) 12 % creamIndications :Xerosis cutis,Fissure in skin of both feet Apply topically Daily 140 g 3 5 05/23/19 26 Active albuterol HFA (Ventolin HFA) 90 mcg/act inhalerIndicatio ns:Seasonal allergies Inhale 2 puffs every 6 (six) hours if needed for wheezing 18 g 5 5 08/16/19 26 Active Lancets Ultra Thin miscIndications: Gestational diabetes mellitus (GDM), antepartum, gestational diabetes method of control unspecified (HHS-HCC),Elevat ed glucose tolerance test 1 each by In Vitro route Daily Use to check FSBS four times daily 150 each 3 5 09/25/19 25 Active Alcohol Swabs (Alcohol Prep Pad) 70 % padsIndications: Gestational diabetes mellitus (GDM), antepartum, gestational diabetes method of control unspecified (HHS-HCC),Elevat ed glucose tolerance test Apply 1 Pad topically Daily Use four times daily to check FSBS. 150 each 3 5 Active Glucose Blood (Blood Glucose Test) stripIndications :Gestational diabetes mellitus (GDM), antepartum, gestational diabetes method of control unspecified ([facility]),Elevat ed glucose tolerance test 1 strip by In Vitro route Daily Use in the morning prior to breakfast, 1 hour after each meal for a total of 4times daily. 150 strip 3 5 09/25/19 25 Active Blood Glucose Monitoring Suppl (D-Care Glucometer) w/Device kitIndications:G estational diabetes mellitus (GDM), antepartum, gestational diabetes method of control unspecified (HHS-HCC),Elevat ed glucose tolerance test 1 kit Daily Use four times daily to check FSBS. In the morning prior to breakfast & 1 hour after each meal for a total of 4times daily. 1 kit 5 08/26/19 26 Active valACYclovir (Valtrex) 500 MG tabletIndication s:Herpes simplex virus type 1 (HSV-1) dermatitis Take 1 tablet (500 mg) by mouth Daily 30 tablet 5 5 02/27/20 25 Active Active Problems Problem Noted Date Diagnosed [...] Date Type Department Care Team Description 09/12/2024 Telephone [facility] [address] [place] [address] Gaye Hollis LPN 09/06/2024 1:30 PM EDT Ancillary Procedure [facility] [address] [place] [address] Gestational diabetes mellitus (GDM), antepartum, gestational diabetes method of control unspecified ([facility]) 08/30/2024 11:20 AM EDT Routine [facility] [address] [place] [address] Negar Ahumada, DO 28 weeks gestation of ([facility]); Third trimester ([facility]); Gestational diabetes mellitus (GDM), antepartum, gestational diabetes method of control unspecified ([facility]); Herpes simplex virus type 1 (HSV-1) dermatitis 08/30/2024 Bamboo flowsheet [facility] [address] [place] [address] Negar Ahumada DO 08/25/[address] [address] [place] [address] Symone Hunter MA 08/24/2024 External Result Encounter [facility] External Department Unsolicited Jaime Mccarthy NP 08/23/2024 Clinisync Result Encounter [facility] External Department Unsolicited Provider, Generic External Data 08/23/2024 Travel 08/16/2024 8:30 AM EDT Routine [facility]OM[facility] [address] [place] [address] Rupal Patel PA Second trimester ([facility]); 26 weeks gestation of ([facility]) 08/16/2024 Bamboo flowsheet [facility]OM[facility] [address] [place] [address] Rupal Patel PA 08/14/2024 Telephone [facility] IM [address] [place] [address] Lito Guerrero MD Med Refill 08/09/2024 Travel 08/07/2024 Clinisync Result Encounter [facility] External Department Unsolicited Provider, Generic External Data 07/18/2024 9:15 AM EDT Office Visit [facility] [address] [place] [address] Lito Guerrero MD Annual physical exam (Primary Dx); Hepatic steatosis; Monoallelic mutation of SDHA gene; Polycystic ovaries; Vitamin D deficiency; Palpitations; Murmur 07/18/2024 Travel 07/17/2024 10:40 AM EDT Routine [facility] [address] [place] [address] Negar Ahumada DO Diabetes mellitus screening; Second trimester ([facility]); 22 weeks gestation of ([facility]) 07/17/2024 Bamboo flowsheet [facility] [address] [place] [address] Negar Ahumada DO 07/11/2024 Travel 07/07/[address] [facility] [address] [place] [address] Symone Hunter MA 07/05/2024 8:00 AM EDT Ancillary Procedure [facility] [place] [address] [place] [address] Screening, , for anatomic survey ([facility]) 06/27/2024 Orders Only [facility] [address] [place] [address] Symone Hunter MA 06/19/2024 10:15 AM EDT Ancillary Procedure [facility] [address] [place] [address] Spotting in ([facility]) 06/19/2024 8:30 AM EDT Routine [facility] [address] [place] [address] Negar Ahumada DO Second trimester ([facility]); 18 weeks gestation of ([facility]); Well woman exam with routine gynecological exam; Exposure to STD; Need for maternal serum alpha-protein (MSAFP) screening ([facility]); Screening, , for anatomic survey ([facility]) 06/19/2024 Clinisync Result Encounter [facility] External Department Unsolicited Provider, Generic External Data 06/19/2024 Abstract [facility] [address] [place] [address] Negar Ahumada DO 06/19/2024 Abstract [facility] OB [address] [place] [address] Negar Ahumada, DO 06/19/2024 Bamboo flowsheet [facility] OB [address] [place] [address] Negar Ahumada, DO 06/12/2024 Travel from Last 3 Months Immunizations Immunization Administration Dates Next Due DTP 1995,1995 DTaP, Unspecified 08/10/2000,08/04/1996,03/17/19 96 HPV 9-Valent 08/12/2015,04/10/2015,12/05/2014 Hep B, Adolescent or Pediatric 03/17/1996,1995,1995 HiB, unspecified 08/04/1996, 6,1995,06/07 IPV 08/10/2000 Influenza, seasonal, injecta ble, preservative free 01/30/2015 MMR 05/04/2023,08/10/2000,04/21/1996 Meningococcal MCV4P 08/12/2006 Novel [id number], preservative-free 02/13/2009 OPV 03/17/1996,1995,1995 Tdap 06/26/2022 Varicella [...] Pressure 116/76 08/30/2024 11:46 AM EDT Pulse 90 07/18/2024 9:20 AM EDT Temperature - - Respiratory Rate - - Oxygen Saturation 98% 07/18/2024 9:20 AM EDT Inhaled Oxygen Concentration - - Weight 101 kg (222 lb 6.4 oz) 08/30/2024 11:46 A M EDT Height 160 cm (5' 3 ) 07/18/2024 9:20 AM EDT Body Mass Index 39.4 07/18/2024 9:20 AM EDT Plan of Treatment Upcoming Encounters Date Type Department Care Team (Late st Contact Info) Description 09/13/2024 11:30 AM EDT Routine [facility] [address] [place] [address] Negar Ahumada DO [address] [place], [place] [id number] 07/24/2025 9:15 AM EDT Office Visit [facility] [address] [place] [address] Health Maintenance Due Date Last Done Comments [...] antepartum, gestational diabetes method of control unspecified ([facility]) TRANSTHORACIC ECHO (TTE) COMPLETE 08/24/2024 12:39 PM EDT GLUCOSE 1 HOUR Routine 08/23/2024 10:49 AM EDT ALL CBC WITH AUTO DIFF Routine 10:49 AM EDT POCT URINALYSIS DIPSTICK Routine 08/16/2024 8:45 AM EDT Second trimester ([facility]) US OB INCOMPLETE ANATOMY 08/07/2024 9:48 AM EDT POCT URINALYSIS DIPSTICK Routine 07/17/2024 11:08 AM EDT 22 weeks gestation of ([facility]) US OB 14+ WEEKS ANATOMY SCAN Routine 07/05/2024 9:14 AM EDT Screening, , for anatomic survey ([facility]) US OB LIMITED 1+ FETUSES Routine 06/20/2024 9:58 AM EDT Second trimester ([facility]) RECURRENT VAGINITIS (HTRX) Routine 06/19/2024 1:47 PM EDT AFP, SERUM, OPEN SPINA BIFIDA Routine 06/19/2024 11:13 AM EDT POCT URINALYSIS DIPSTICK Routine 06/19/2024 9:27 AM EDT 18 weeks gestation of ([facility]) IGP,APTIMA HPV,AGE GDLN Routine 06/19/2024 9:02 AM EDT PAP SMEAR Routine 06/19/2024 12:00 AM EDT from Last 3 Months Results * US OB follow up transabdominal [...] 11/19/2024. Interpreted by: Electronically signed by ALYSA ASTUDILLO II, MD, PHD at 08-Sep-2024 10:22:30 AM [facility] Procedure Note Alysa Astudillo MD - 09/08/2024 EXAM: US OB FOLLOW [...] 11/19/2024. Interpreted by: Electronically signed by ALYSA ASTUDILLO II, MD, PHD 10:22:30 AM [facility] us Negar Zita DO IMG OB US PROCEDURES Final Resul t * Transthoracic echo (TTE) complete (08/24/2024 12:39 PM EDT) Anatomical Region Laterality Modality Heart Ultrasound 08/24/2024 12:3 9 PM EDT Narrative 08/24/2024 6:36 PM EDT [facility] [place] [address] [place] [address] Echocardiogram Signed Patient: Lissa Rojas MR#: [id number] : 1995 Acct:[id number] Age/Sex: 29 / F ADM Date: 08/24/24 Loc: Room: Type: [facility] Attending Dr: Jaime Mccarthy RN, MSN, ANP-C Ordering Provider: JAIME MCCARTHY RN, MSN Date of Service: 08/24/24/ ECH/ECH echo transthoracic: Palpitations. Murmur. Copies to: MD SAMSON Mckeon MICHELE L RN, MSN Lissa Bowen 12:39 PM Patient Location: : 1995 Gender: Female (MM/DD/YYYY) Age: 29 Years Ordering Physician: Jaime Mccarthy Height: 62.99 in Weight: 225.004 lb Performed By: Jailene Abbasi [facility] BSA: 2.03 m2 HR: 93 bpm Reason [...] : : 6:35 PM : Transcribed By: SCV Performed At: 08/24/24 1239 Signed By: Iveth Ding MD 08/24/24 9885 Procedure Note Iveth Ding MD - 08/24/2024 [facility] [place] [address] [place] [address] Echocardiogram Signed Patient: Lissa Rojas FMR#: [id number] : 1995Acct:[id number] Age/Sex: Date: 08/24/24 Loc: Room:Type: [facility] Attending Dr: Jaime Mccarthy RN, MSN, ANP-C Ordering Provider: JAIME MCCARTHY RN, MSN Date of Service: 08/24/24/ ECH/ECH echo transthoracic: Palpitations.Murmur. Copies to: MD SAMSON Mckeon MICHELE L RN, MSN Lissa Bowen 12:39 PM Patient Location: : 1995 Gender: Female (MM/DD/YYYY) Age: 29 Years Ordering Physician: Jaime Mccarthy Height: 62.99 in Weight: 225.004 lb Performed By: Jailene Abbasi [facility] BSA: 2.03 m2 HR: 93 bpm Reason [...] PM: Transcribed By: HERNAN Performed At: 08/24/24 8856 Signed By: Iveth Ding MD 08/24/24 4543 us Jaime Mccarthy NP CV ECHO PROCEDURES Final Res ult * (ABNORMAL) GLUCOSE 1 HOUR (08/23/2024 10:49 AM EDT) Pathologist [facility] GLUCOSE 1 HOUR 181(H) <130 mg/dL TBH 08/23/2024 10:4 9 AM EDT 08/23/2024 10:51 AM EDT Narrative [facility] - 08/23/2024 11:33 AM EDT us Negar Ahumada DO LAB BLOOD ORDERABLES Final Resul t [facility] * (ABNORMAL) ALL CBC WITH AUTO DIFF (08/23/2024 10:49 AM EDT) Pathologist [facility] TB WBC 8.8 4.0 - 11.0 10 3/uL TBH TBH RBC 3.35(L) 4.20 - 5.40 10 6/uL TBH TBH HGB 10.6(L) 12.0 - 16.0 g/dL TBH TBH HCT 32.0(L) 36.0 - 48.0 % TBH TBH MCV 95.5 81.0 - 99.0 fL TBH TBH MCH 31.6 26.7 - 34.0 pg TBH TBH MCHC 33.1 29.9 - 35.2 g/dL TBH TBH RDW 13.0 11.0 - 15.0 % TBH TBH PLT 211 150 - 450 10 3/uL TBH TBH MPV 9.8 9.5 - 13.5 fL TBH NEUTROPHILS PERCENT AUTO 73.5 43.0 - 75.0 % TBH LYMPHOCYTES PERCENT AUTO 18.8(L) 20.5 - 60.0 % TBH MONOCYTES PERCENT AUTO 5.3 1.7 - 12.0 % TBH TBH EO % 1.4 0.9 - 7.0 % TBH BASOPHILS PERCENT AUTO 0.3 0.2 - 2.0 % TBH IMMATURE GRANULOCYTES PCT AUTO 0.7(H) 0.0 - 0.5 % TBH NEUTROPHILS ABSOLUTE AUTO 6.5 1.4 - 6.5 10 3/uL TBH LYMPHOCYTES ABSOLUTE AUTO 1.7 1.2 - 3.8 10 3/uL TBH MONOCYTES ABSOLUTE AUTO 0.5 0.3 - 0.8 10 3/uL TBH TBH EO # 0.1 0.0 - 0.7 10 3/uL TBH BASOPHILS ABSOLUTE AUTO 0.0 0.0 - 0.1 10 3/uL TBH IMMATURE GRANULOCYTES ABS AUTO 0.06(H) 0.00 - 0.03 10 3/uL TBH 08/23/2024 10:4 9 AM EDT 08/23/2024 10:51 AM EDT Narrative [facility] - 08/23/2024 11:11 AM EDT us Negar Zita DO [facility] Final Result [facility] TB * (ABNORMAL) POCT urinalysis dipstick manually resulted [...] AM EDT Narrative 08/07/2024 9:50 AM EDT [address] [address] Ultrasound Report Signed Patient: LISSA ROJAS MR#: [id number] : 1995 Acct:[id number] Age/Sex: 29 / F ADM Date: 08/04/24 Loc: US Attending Dr: Negar Ahumada D.O. Ordering Physician: Negar Ahumada D.O. Date of Service: 08/04/24 Procedure(s): US OB incomplete anatomy Accession Number(s): [id number] cc: Negar Ahumada D.O.; LITO GUERRERO [place] [address] Patient Name: LISSA ROJAS MRN: [facility]:[id number] date: 1995 Sex: F Assigned Patient Location: US Current Patient Location: Accession/Order Number: [id number] Exam Date: 08/07/2024 09:41 Report Date: 08/07/2024 [...] Gage M.D. 08/07/2024 9:48 AM Dictation Location: [place] [address] Electronically authenticated by: [id number] Y Date: 08/07/2024 09:48 Dictated By: Paula Gage M.D. Signed By: 08/07/2450 DD/ 7 TD/TT: Telephone Quotation Clerk: Procedure Note Radiology, Radiologist, - 08/07/2024 [place] [address] Ultrasound Report Signed Patient: CONSTANTINE ROJAS#: [id number] : 1995Acct:[id number] Age/Sex: 29 / FADM Date: 08/04/24 Loc: US Attending Dr: Negar Ahumada D.O. Ordering Physician: Negar Ahumada D.O. Date of Service: 08/04/24 Procedure(s): US OB incomplete anatomy Accession Number(s): [id number] cc: Negar Ahumada D.O.; LITO GUERRERO [place] [id number] Patient Name: LISSA ROJAS MRN: [id number] date: 1995 Sex: F Assigned Patient Location: US Current Patient Location: Accession/Order Number: [id number] Exam Date: 08/07/2024 09:41 Report Date: 08/07/2024 [...] Gage M.D. 08/07/2024 9:48 AM Dictation Location: [place] [address] Electronically authenticated by: [id number] Y Date: 9:48 Dictated By: Paula Gage M.D. Signed By:08/07/2450 DD/ 7 TD/TT: Telephone Quotation Clerk: us Generic External Data Provider [facility] [...] II, MD, PHD at 07-Jul-2024 06:23:52 AM [facility] Procedure Note Alysa Astudillo MD - [...] ALYSA ASTUDILLO II, MD, PHD 06:23:52 AM [facility] us Negar Ahumada DO IM OB US PROCEDURES Final Resul t * [...] II, MD, PHD at 20-Jun-2024 09:56:32 AM [facility] Procedure Note Alysa Astudillo MD - [...] ASTUDILLO II, MD, PHDat 20-Jun-2024 09:56:32 AM [facility] us Negar Zita DO IM OB US PROCEDURES Final Resul t * RECURRENT VAGINITIS (HTRX) (06/19/2024 1:47 PM EDT) Pathologist [facility] ATOPOBIUM VAGINAE 0.000 19.961 - 24.689 ppm 06/21/2024 6:29 AM EDT [facility] ATOPOBIUM VAGINAE Not Detected 19.961 - 24.689 ppm 06/21/2024 6:29 AM EDT [facility] BVAB 2,3 (BACTERIAL VAGINOSIS ASSOCIATED BACTERIA 2, 3); MOBILUNCUS SPP 0.000 19.961 - 24.689 ppm 06/21/2024 6:29 AM EDT [facility] BVAB 2,3 (BACTERIAL VAGINOSIS ASSOCIATED BACTERIA 2, 3); MOBILUNCUS SPP Not Detected 19.961 - 24.689 ppm 06/21/2024 6:29 AM EDT [facility] SHANTA ALBICANS, PARAPSILOSIS, TROPICALIS 0.000 19.961 - 30.770 ppm 06/21/2024 6:29 AM EDT [facility] SHANTA ALBICANS, PARAPSILOSIS, TROPICALIS Not Detected 19.961 - 30.770 ppm 06/21/2024 6:29 AM EDT [facility] SHANTA GLABRATA 0.000 23.000 - 32.138 ppm 06/21/2024 6:29 AM EDT [facility] SHANTA GLABRATA Not Detected 23.000 - 32.138 ppm 06/21/2024 6:29 AM EDT [facility] SHANTA KRUSEI 0.000 23.000 - 32.271 ppm 06/21/2024 6:29 AM EDT [facility] SHANTA KRUSEI Not Detected 23.000 - 32.271 ppm 06/21/2024 6:29 AM EDT [facility] CHLAMYDIA TRACHOMATIS 0.000 23.000 - 31.467 ppm 06/21/2024 6:29 AM EDT [facility] CHLAMYDIA TRACHOMATIS Not Detected 23.000 - 31.467 ppm 06/21/2024 6:29 AM EDT [facility] GARDNERELLA VAGINALIS 0.000 19.961 - 24.689 ppm 06/21/2024 6:29 AM EDT [facility] GARDNERELLA VAGINALIS Not Detected 19.961 - 24.689 ppm 06/21/2024 6:29 AM EDT [facility] MEGASPHAERA (TYPES 1, 2) 0.000 19.961 - 24.689 ppm 06/21/2024 6:29 AM EDT [facility] MEGASPHAERA (TYPES 1, 2) Not Detected 19.961 - 24.689 ppm 06/21/2024 6:29 AM EDT [facility] NEISSERIA GONORRHOEAE 0.000 23.000 - 32.117 ppm 06/21/2024 6:29 AM EDT [facility] NEISSERIA GONORRHOEAE Not Detected 23.000 - 32.117 ppm 06/21/2024 6:29 AM EDT [facility] TRICHOMONAS VAGINALIS 0.000 23.000 - 32.119 ppm 06/21/2024 6:29 AM EDT [facility] TRICHOMONAS VAGINALIS Not Detected 23.000 - 32.119 ppm 06/21/2024 6:29 AM EDT [facility] MYCOPLASMA GENITALIUM 0.000 19.961 - 24.689 ppm 06/21/2024 6:29 AM EDT [facility] MYCOPLASMA GENITALIUM Not Detected 19.961 - 24.689 ppm 06/21/2024 6:29 AM EDT [facility] Tissue 06/19/2024 1:47 PM EDT 06/21/2024 1:46 AM EDT Negar Ahumada DO LAB BLOOD ORDERABLES Final Resul t [facility] [address] [place] [address] * AFP, SERUM, OPEN SPINA BIFIDA (06/19/2024 11:13 AM EDT) RESULTS Report . TB TEST RESULTS: *Screen Negative* . [facility]H GEST. AGE ON COLLECTION DATE 18.1 . weeks [facility]H GESTAT. AGE BASED ON LMP . TB Comment: Recalculations are not recommended when gestational dating by LMP and ultrasound are within 10 days. [age] [facility] RACE . [facility] WEIGHT 221 . lbs [facility] INSULIN DEP DIABETES No . [facility] MULTIPLE GESTATION No . [facility] AFP VALUE 24.8 . ng/mL [facility] AFP MOM 0.72 . [facility] [place] [address] [place] [address] . [facility] INTERPRETATION Comment . [facility] Comment: Interpretation: Screen Negative This result is [...] Customer Services to discuss available options. The [place] [employer] recommends amniocentesis be offered to women age 35 and older. COMMENT: Comment . [facility] Comment: Nasreen Mello, Ph.D., [facility] Director References: Available Upon Request. Multiples Of Median Cutoffs For AFP Elevations Bruce 2.5 Black 2.8 IDD 2.0 Twins 4.5 Abbreviation Definitions IDD - Insulin Dep Diabetes OSBR - Open Spina Bifida Risk For further inquiries contact [employer] [facility] at [phone]. This test was developed and its performance characteristics determined by [facility]. It has not been cleared or approved by the Food and Drug Administration. Performed at: [address] [id number] Uptwister Tender: Jimmy Zavala [facility], Phone: [phone] 06/19/2024 11:1 3 AM EDT 06/19/2024 11:14 AM EDT Narrative [facility] - 06/21/2024 12:07 AM EDT N N LMP [id number] 1 18 N 1 Y 221 N N N N N White/ us Negar Zita DO LAB BLOOD ORDERABLES Final Resul t [facility] * IGP,APTIMA HPV,AGE GDLN (06/19/2024 9:02 AM EDT) AGE GDLN AC TESTING Note . [facility] Comment: TESTS RESULT FLAG UNITS REF RANGE LAB Clinician Provided Cytology Information Source.............Cervix Other.............. No. of containers..01 ThinPrep Vial Age Algo [facility] An... -26 04 FLAG LEGEND: L-Low Normal,H-High Normal,LL-Alert Low,HH-Alert High <-Panic Low,>-Panic High,A-Abnormal,AA-Critical Abnormal Performed at: 01 =G [facility] [address] Helena Salcedo MD, IGP, RFX APTIMA HPV ASCU Note . [facility] Comment: TESTS RESULT FLAG UNITS REF RANGE LAB DIAGNOSIS: 02 NEGATIVE FOR INTRAEPITHELIAL LESION OR MALIGNANCY. Specimen adequacy: 02 Satisfactory for evaluation. No endocervical component is identified. Performed by: Re Roldan Resident Care Coordinator ([facility]) . 02 Note: Note 03 The [...] <-Panic Low,>-Panic High,A-Abnormal,AA-Critical Abnormal Performed at: 02 [facility] [address] [place] [address] Vince Jim MD, 03 WB [facility] [address] [address] Helena Salcedo MD, Performed at: =G - [facility] [address] [id number] Uptw[employer] Tender: Helena Salcedo MD, Phone: [phone] Performed at: [facility] [address] [place], [place] [id number] [employer] Tender: Vince Jim MD, Phone: [phone] 06/19/2024 9:02 AM EDT 06/19/2024 2:56 PM EDT Narrative [facility] - 06/22/2024 2:09 PM EDT [facility] us Generic External Data Provider LAB BLOOD ORDERAB LES Final Result [facility] * Pap Smear (06/19/2024 12:00 AM EDT) Swab Cervical swab / Unknown us Negar Ahumada DO LAB CYTOLOGY ORDERABLES Final Re sult EXTERNAL LAB from Last 3 Months Additional Health Concerns Active Problems Noted Date Diagnosed Date OB Reminders 04/30/2024 Insurance [employer] Care Teams General Passenger Agent Relationship Specialty Start Date End Date Lito Guerrero MD [address] [facility] [address] [place] [address] PCP - General Internal Medicine 10/05/22
--- OUTSIDE RECORDS SUMMARY | 2024-09-12 16:33 | XMS_ITS | Encounter Summary ---
Author Organization [facility] Address [address] [place] [address] Care Team Providers Care Mines Inspector Name Role Phone Robles Goldsmith DO Unavailable [phone] Josefina Harris RN Unavailable [phone] Source Comments In the event this information is protected by the Federal Confidentiality of Alcohol and Drug AbusePatient Records regulations: The Federal rules restrict any use of the information to criminally investigate or prosecute any alcohol or drug abuse patient.[facility] Encounter Details Date Type Department Care Team (Late st Contact Info) Description 10/22/2023 Patient Msg Reproductive Endocrinology Infertility [address] [place], [place] [id number] Provider, Alli 10/26/23 Social History Tobacco Use [...] on filedocumented in this encounter Care Teams Mines Inspector Relationship Specialty Start Date End Date Robles Goldsmith [address] [facility] [address] [place] [address] Referring Obstetrics 10/13/22 [place] [address] [place] [address] Specialty Gas Regulator Repairer Helper 04/12/24 documented as of this encounter
--- OUTSIDE RECORDS SUMMARY | 2024-09-12 16:33 | XMS_ITS | Encounter Summary ---
Author Organization [facility] Address [address] [place] [address] Care Team Providers Care Utility Technician Name Role Phone Robles Goldsmith DO Unavailable [phone] Josefina Harris RN Unavailable [phone] Source Comments In the event this information is protected by the Federal Confidentiality of Alcohol and Drug AbusePatient Records regulations: The Federal rules restrict any use of the information to criminally investigate or prosecute any alcohol or drug abuse patient.[facility] Encounter Details Date Type Department Care Team (Late st Contact Info) Description 02/11/2024 Patient Msg Family Medicine [address] [place], [place] [id number] Provider, Ccf Appointment Cancellation Social History Tobacco [...] is lower risk 4 12/21/2023 Data from: https://www.neighborhoodatlas.medicine.[facility].edu/. Last address used for calculation [address] [place] [address] 12/21/2023 Comments No Sex and Gender Information Value Date Recorded Sex Assigned at Female 01/04/2023 6:38 PM EDT Legal Sex Female 10:39 AM EDT Gender Identity Female 01/04/2023 6:38 PM EDT Sexual Orientation Not on file documented as of this encounter Plan of Treatment Not on file documented as of this encounter Visit Diagnoses Not on filedocumented in this encounter Care Teams Utility Technician Relationship Specialty Start Date End Date Robles Goldsmith DO [address] [facility] 210 [place] [address] Referring Obstetrics 10/13/22 [place] [address] [place] [address] Specialty Underliner 04/12/24 documented as of this encounter
--- OUTSIDE RECORDS SUMMARY | 2024-09-12 16:33 | XMS_ITS | Encounter Summary ---
Author Organization [facility] Address [address] [place] [address] Care Team Providers Care Ice Cream Mixer Name Role Phone Omer Velazquez MD Primary Care Provider [phone] Encounter Details Date Type Department Care Team (Late st Contact Info) Description 01/11/2023 Abstract [facility] IM [address] [facility] 230 [place] [address] Omer Velazquez MD [address] [facility] 230 [place] [address] Social History Tobacco Use Types Packs/Day Years [...] AM EDT Routine [facility] BCP OB [address] [facility] [place] [address] Saravanan Ahumada, DO [address] [facility] [place] [address] 07/24/2025 9:15 AM EDT Office Visit [facility] IM [address] [place] [address] documented as of this encounter Visit Diagnoses Not on filedocumented in this encounter Care Teams Ice Cream Mixer Relationship Specialty Start Date End Date Omer Velazquez MD [address] [place] [address] PCP - General Internal Medicine 10/05/22 documented as of this encounter
--- OUTSIDE RECORDS SUMMARY | 2024-09-12 16:33 | XMS_ITS | Encounter Summary ---
Author Organization [facility] Address [address] [place] [address] Care Team Providers Care Hydrotel Operator Name Role Phone Omer Velazquez MD Primary Care Provider [phone] Encounter Details Date Type Department Care Team (Late st Contact Info) Description 10/05/2022 Abstract [facility] SWS OB [address] [facility] 210 [place] [address] Robles Goldsmith, DO [address] [facility] 210 [place] [address] Social History Tobacco Use Types Packs/Day Years [...] AM EDT Routine [facility] BCP OB [address] [place] [address] Saravanan Ahumada, DO [address] [place] [address] 07/24/2025 9:15 AM EDT Office Visit [facility] SWS IM [address] [place] [address] documented as of this encounter Visit Diagnoses Not on filedocumented in this encounter Care Teams Hydrotel Operator Relationship Specialty Start Date End Date Omer Velazquez MD [address] [place] [address] PCP - General Internal Medicine 10/05/22 documented as of this encounter
--- OUTSIDE RECORDS SUMMARY | 2024-09-12 16:33 | XMS_ITS | Encounter Summary ---
Author Organization [facility] Address [address] [place] [address] Care Team Providers Care Microsoft Solutions Architect Name Role Phone Robles Goldsmith DO Unavailable [phone] Josefina Harris RN Unavailable [phone] Source Comments In the event this information is protected by the Federal Confidentiality of Alcohol and Drug AbusePatient Records regulations: The Federal rules restrict any use of the information to criminally investigate or prosecute any alcohol or drug abuse patient.[facility] Encounter Details Date Type Department Care Team (Late st Contact Info) Description 01/20/2023 Get Medical Advice Reproductive Endocrinology Infertility [address] [place] [address] Shaina Edge MD [facility]0 [place] [id number] ATTN: Domenica Social History Tobacco Use Types [...] on filedocumented in this encounter Care Teams Microsoft Solutions Architect Relationship Specialty Start Date End Date Robles Goldsmith DO [address] [facility] 210 [place] [address] Referring Obstetrics 10/13/22 [place] [address] [place] [address] Specialty Billing Services Manager 04/12/24 documented as of this encounter
--- OUTSIDE RECORDS SUMMARY | 2024-09-12 16:33 | XMS_ITS | Encounter Summary ---
Author Organization [facility] Address [address] [place] [address] Care Team Providers Care Director Of Regulatory Affairs Name Role Phone Omer Velazquez MD Primary Care Provider [phone] Encounter Details Date Type Department Care Team (Late st Contact Info) Description 06/27/2024 Orders Only [facility] BCP OB [address] [facility] [place] [address] Symone [place] [address] [place] [address] Social History Tobacco Use Types Packs/Day Years [...] [address] [facility] [place] [address] Saravanan Ahumada, DO [address] [facility] [place] [address] 07/24/2025 9:15 AM EDT Office Visit [facility] IM [address] [place] [address] documented as of this encounter Goals Goal [...] documented as of this encounter Care Teams Director Of Regulatory Affairs Relationship Specialty Start Date End Date Omer Velazquez MD [address] [place] [address] PCP - General Internal Medicine 10/05/22 documented as of this encounter
--- OUTSIDE RECORDS SUMMARY | 2024-09-12 16:33 | XMS_ITS | Encounter Summary ---
Author Organization Address [address] [place] [address] Care Team Providers Care Fruit Sprayer Name Role Phone Robles Goldsmith DO Unavailable [phone] Josefina Harris RN Unavailable [phone] Source Comments In the event this information is protected by the Federal Confidentiality of Alcohol and Drug AbusePatient Records regulations: The Federal rules restrict any use of the information to criminally investigate or prosecute any alcohol or drug abuse patient. Encounter Details Date Type Department Care Team (Late st Contact Info) Description 09/10/2023 Patient Msg Reproductive Endocrinology Infertility [address] [place] [address] Haritha Casiano APRN.STORAGE RECEIPT POSTER [address] [place] [address] IUI facts Social History Tobacco Use Types [...] on filedocumented in this encounter Care Teams Fruit Sprayer Relationship Specialty Start Date End Date Robles Goldsmith DO [address] [facility] 210 [place] [address] Referring Obstetrics 10/13/22 [place] [address] [place] [address] Specialty Medical Fee Clerk 04/12/24 documented as of this encounter
--- OUTSIDE RECORDS SUMMARY | 2024-09-12 16:33 | XMS_ITS | Clinical Summary ---
Author Organization [facility] Address [address] [place] [address] Phone Care Team Providers Care Psychologist Engineering Name Role Phone Omer Velazquez MD Primary [...] to complete this topic Insurance [address] [place] [address] [place] [address] [facility] Care Teams Psychologist Engineering Relationship Specialty Start Date End Date Omer Velazquez MD [address] [place] [address] PCP - General Internal Medicine 02/14/24
--- OUTSIDE RECORDS SUMMARY | 2024-09-12 16:33 | XMS_ITS | Encounter Summary ---
Author Organization [facility] Address [address] [place] [address] Care Team Providers Care Electrician Machine Shop Name Role Phone Robles Goldsmith DO Unavailable [phone] Josefina Harris RN Unavailable [phone] Source Comments In the event this information is protected by the Federal Confidentiality of Alcohol and Drug AbusePatient Records regulations: The Federal rules restrict any use of the information to criminally investigate or prosecute any alcohol or drug abuse patient.[facility] Encounter Details Date Type Department Care Team (Latest Contact Info) Description 09/11/2024 Travel Social History Tobacco Use Types Packs/Day [...] is lower risk 4 12/21/2023 Data from: https://www.neighborhoodatlas.medicine.[facility].edu/. Last address used for calculation [address] [place] [address] 12/21/2023 Comments Yes Sex and Gender Information Value Date Recorded Sex Assigned at Female 01/04/2023 6:38 PM EDT Legal Sex Female 10:39 AM EDT Gender Identity Female 01/04/2023 6:38 PM EDT Sexual Orientation Not on file documented as of this encounter Plan of Treatment Not on file documented as of this encounter Visit Diagnoses Not on filedocumented in this encounter Care Teams Electrician Machine Shop Relationship Specialty Start Date End Date Robles Goldsmith DO [address] [facility] 210 [place] [address] Referring Obstetrics 10/13/22 Josefina Harris, ARIC [address] [place] [address] Specialty Enterprise Application Developer 04/12/24 documented as of this encounter
--- OUTSIDE RECORDS SUMMARY | 2024-09-12 16:33 | XMS_ITS | Encounter Summary ---
Author Organization [facility] Address [address] [place] [address] Care Team Providers Care Lead Miner Name Role Phone Robles Goldsmith DO Unavailable [phone] Josefina Harris RN Unavailable [phone] Source Comments In the event this information is protected by the Federal Confidentiality of Alcohol and Drug AbusePatient Records regulations: The Federal rules restrict any use of the information to criminally investigate or prosecute any alcohol or drug abuse patient.[facility] Encounter Details Date Type Department Care Team (Late st Contact Info) Description 09/10/2023 Patient Msg Reproductive Endocrinology Infertility [address] [facility] [place] [address] Haritha Casiano APRN.[employer] [address] [place] [address] IUI information Social History Tobacco Use Types [...] on filedocumented in this encounter Care Teams Lead Miner Relationship Specialty Start Date End Date Robles Goldsmith DO [address] [facility] 210 [place] [address] Referring Obstetrics 10/13/22 [place] [address] [place] [address] Specialty Baggage Handler 04/12/24 documented as of this encounter
--- OUTSIDE RECORDS SUMMARY | 2024-09-12 16:33 | XMS_ITS | Encounter Summary ---
Author Organization [facility] Address [address] [place] [address] Care Team Providers Care Data Control Clerk Name Role Phone Robles Goldsmith DO Unavailable [phone] Josefina Harris RN Unavailable [phone] Source Comments In the event this information is protected by the Federal Confidentiality of Alcohol and Drug AbusePatient Records regulations: The Federal rules restrict any use of the information to criminally investigate or prosecute any alcohol or drug abuse patient.[facility] Encounter Details Date Type Department Care Team (Late st Contact Info) Description 08/12/2023 Patient [facility] -[address] [place] [address] Cee Palafox RPh At your next appointment, choose [facility]. Social History Tobacco Use Types [...] on filedocumented in this encounter Care Teams Data Control Clerk Relationship Specialty Start Date End Date Robles Goldsmith DO [address] [facility] 210 [place] [address] Referring Obstetrics 10/13/22 [place] [address] [place] [address] Specialty Pipe Coverer Helper 04/12/24 documented as of this encounter
--- OUTSIDE RECORDS SUMMARY | 2024-09-12 16:33 | XMS_ITS | Encounter Summary ---
Author Organization [facility] Address [address] [place] [address] Care Team Providers Care Csr Name Role Phone Omer Velazquez MD Primary Care Provider [phone] Encounter Details Date Type Department Care Team (Late st Contact Info) Description 07/20/2023 Orders Only [facility] S[facility] IM [address] [place] [address] A, Unknown Practice [address] [place], [place] [address] Social History Tobacco Use Types Packs/Day Years [...] BCP OB [address] [place] [address] Saravanan Ahumada, DO [address] [place], [place] [address] 07/24/2025 9:15 AM EDT Office Visit [facility] IM [address] [place] [address] documented as of this encounter Procedures Procedure Name Priority Date/Time Associated Diagnosis Comments SCANNED LABS Routine 07/20/2023 2:45 PM EDT documented in this encounter Results * SCANNED LABS (07/20/2023 2:45 PM EDT) us Unknown Practice A LAB CHG PERFORMABLES Final Re sult documented in this encounter Visit Diagnoses Not on filedocumented in this encounter Care Teams Csr Relationship Specialty Start Date End Date Omer Velazquez MD [address] [place] [address] PCP - General Internal Medicine 10/05/22 documented as of this encounter
--- OUTSIDE RECORDS SUMMARY | 2024-09-12 16:33 | XMS_ITS | Encounter Summary ---
Author Organization [facility] Address [address] [place] [address] Care Team Providers Care Service Center Specialist Name Role Phone Robles Goldsmith DO Unavailable [phone] Josefina Harris RN Unavailable [phone] Source Comments In the event this information is protected by the Federal Confidentiality of Alcohol and Drug AbusePatient Records regulations: The Federal rules restrict any use of the information to criminally investigate or prosecute any alcohol or drug abuse patient.[facility] Encounter Details Date Type Department Care Team (Late st Contact Info) Description 01/05/2023 Patient Msg Reproductive Endocrinology Infertility [address] [place], [place] [address] Provider, Alli Received Voicemail Social History Tobacco [...] on filedocumented in this encounter Care Teams Service Center Specialist Relationship Specialty Start Date End Date Robles Goldsmith DO [address] [facility] 210 [place] [address] Referring Obstetrics 10/13/22 [place] [address] [place] [address] Specialty Commissary Production Supervisor 04/12/24 documented as of this encounter
--- OUTSIDE RECORDS SUMMARY | 2024-09-12 16:33 | XMS_ITS | Encounter Summary ---
Author Organization [facility] Address [address] [place] [address] Care Team Providers Care Infectious Disease Technician Name Role Phone Robles Goldsmith DO Unavailable [phone] Josefina Harris RN Unavailable [phone] Source Comments In the event this information is protected by the Federal Confidentiality of Alcohol and Drug AbusePatient Records regulations: The Federal rules restrict any use of the information to criminally investigate or prosecute any alcohol or drug abuse patient.[facility] Encounter Details Date Type Department Care Team (Latest Contact Info) Description 09/05/2024 Travel Social History Tobacco Use Types Packs/Day [...] is lower risk 4 12/21/2023 Data from: https://www.neighborhoodatlas.medicine.[facility].edu/. Last address used for calculation [address] [place] [address] 12/21/2023 Comments Yes Sex and Gender Information Value Date Recorded Sex Assigned at Female 01/04/2023 6:38 PM EDT Legal Sex Female 10:39 AM EDT Gender Identity Female 01/04/2023 6:38 PM EDT Sexual Orientation Not on file documented as of this encounter Plan of Treatment Not on file documented as of this encounter Visit Diagnoses Not on filedocumented in this encounter Care Teams Infectious Disease Technician Relationship Specialty Start Date End Date Robles Goldsmith DO [address] [facility] 210 [place] [address] Referring Obstetrics 10/13/22 Josefina Harris, ARIC [address] [place] [address] Specialty Agricultural Commodities Grader 04/12/24 documented as of this encounter
--- OUTSIDE RECORDS SUMMARY | 2024-09-12 16:33 | XMS_ITS | Encounter Summary ---
Author Organization [facility] Address [address] [place] [address] Care Team Providers Care Senior Sas Programmer Name Role Phone Omer Velazquez MD Primary Care Provider [phone] Encounter Details Date Type Department Care Team (Late st Contact Info) Description 05/01/2024 Abstract [facility] BCP OB [address] [place] [address] Saravanan Ahumada, DO [address] [place], [facility]11 Social History Tobacco Use Types [...] [facility] [place] [address] Saravanan Ahumada, DO [address] [facility] [place] [place] [address] 07/24/2025 9:15 AM EDT Office Visit [facility] IM [address] [place] [address] documented as of this encounter Goals Goal Patient Goal Type Associated Problems Recent Progress Patient-Stated? Author Reminders Care Plan OB Reminders No Open Scheduling, Background documented as of this encounter Visit Diagnoses Not on filedocumented in this encounter Additional Health Concerns Active Problems Noted Date Diagnosed Date OB Reminders 04/30/2024 documented as of this encounter Care Teams Senior Sas Programmer Relationship Specialty Start Date End Date Omer Velazquez MD [address] [place] [address] PCP - General Internal Medicine 10/05/22 documented as of this encounter
--- OUTSIDE RECORDS SUMMARY | 2024-09-12 16:33 | XMS_ITS | Encounter Summary ---
Author Organization [facility] Address [address] [place] [address] Care Team Providers Care Bridal Stylist Sales Consultant Name Role Phone Robles Goldsmith DO Unavailable [phone] Josefina Harris RN Unavailable [phone] Source Comments In the event this information is protected by the Federal Confidentiality of Alcohol and Drug AbusePatient Records regulations: The Federal rules restrict any use of the information to criminally investigate or prosecute any alcohol or drug abuse patient.[facility] Encounter Details Date Type Department Care Team (Late st Contact Info) Description 01/25/2023 Patient Msg Reproductive Endocrinology Infertility [address] [place] [address] Shaina Edge MD [facility]0 [place] [phone] MyRiad results Social History Tobacco Use Types [...] on filedocumented in this encounter Care Teams Bridal Stylist Sales Consultant Relationship Specialty Start Date End Date Robles Goldsmith DO [address] [facility] 210 [place] [address] Referring Obstetrics 10/13/22 [place] [address] [place] [address] Specialty Restaurant Attendant 04/12/24 documented as of this encounter
--- OUTSIDE RECORDS SUMMARY | 2024-09-12 16:33 | XMS_ITS | Encounter Summary ---
Author Organization [facility] Address [address] [place] [address] Care Team Providers Care Housekeeping Supervisor Name Role Phone Omer Velazquez MD Primary Care Provider Encounter Details Date Type Department Care Team (Late st Contact Info) Description 01/06/2023 Abstract [facility] SWS OB [address] [facility] 210 [place] [address] Robles Goldsmith, DO [address] [facility] 210 [place] [address] Social History Tobacco Use Types Packs/Day Years [...] Routine NOMS BCP OB [address] [place] [address] Saravanan Ahumada, DO [address] [place], [place] [address] 07/24/2025 9:15 AM EDT Office Visit [facility] IM [address] [place] [address] documented as of this encounter Visit Diagnoses Not on filedocumented in this encounter Care Teams Housekeeping Supervisor Relationship Specialty Start Date End Date Omer Velazquez MD [address] [place] [address] PCP - General Internal Medicine 10/05/22 documented as of this encounter
--- OUTSIDE RECORDS SUMMARY | 2024-09-12 16:33 | XMS_ITS | Encounter Summary ---
Author Organization [facility] Address [address] [place] [address] Care Team Providers Care Unit Nurse Name Role Phone Robles Goldsmith DO Unavailable [phone] Josefina Harris RN Unavailable [phone] Source Comments In the event this information is protected by the Federal Confidentiality of Alcohol and Drug AbusePatient Records regulations: The Federal rules restrict any use of the information to criminally investigate or prosecute any alcohol or drug abuse patient.[facility] Encounter Details Date Type Department Care Team (Late st Contact Info) Description 02/17/2024 Patient Msg Reproductive Endocrinology Infertility [address] [place] [address] Shaina Edge MD [address] [place] [phone] PCOS supplements Social History Tobacco Use Types [...] is lower risk 4 12/21/2023 Data from: https://www.neighborhoodatlas.medicine.[facility]/. Last address used for calculation [address] 12/21/2023 Comments No Sex and [...] on filedocumented in this encounter Care Teams Unit Nurse Relationship Specialty Start Date End Date Robles Goldsmith DO [address] [facility] [address] [place] [address] Referring Obstetrics 10/13/22 [place] [address] [address] [place], [place] [id number] Specialty Superintendent Quarry 04/12/24 documented as of this encounter
--- OUTSIDE RECORDS SUMMARY | 2024-09-12 16:33 | XMS_ITS | Encounter Summary ---
Author Organization [facility] Address [address] [place] [address] Care Team Providers Care Chemist Name Role Phone Omer Velazquez MD Primary Care Provider [phone] Encounter Details Date Type Department Care Team (Late st Contact Info) Description 05/01/2024 Abstract [facility] BCP OB [address] [place] [address] Saravanan Ahumada, DO [address] [place], [facility]11 Social History Tobacco Use Types Packs/Day Years [...] AM EDT Routine NOMS BCP OB [address] [facility] [place] [address] Saravanan Ahumada, DO [address] [facility] [place] [address] 07/24/2025 9:15 AM EDT Office Visit [facility] IM [address] [place] [address] documented as of this encounter Goals Goal Patient Goal Type Associated Problems Recent Progress Patient-Stated? Author Reminders Care Plan OB Reminders No Open Scheduling, Background documented as of this encounter Visit Diagnoses Not on filedocumented in this encounter Additional Health Concerns Active Problems Noted Date Diagnosed Date OB Reminders 04/30/2024 documented as of this encounter Care Teams Chemist Relationship Specialty Start Date End Date Omer Velazquez MD [address] [place] [address] PCP - General Internal Medicine 10/05/22 documented as of this encounter
[2024-09-12 16:36] VITALS: BP 129/79; PULSE 103
[2024-09-12 17:11] LABS: Bilirubin Urine NEGATIVE (NEGATIVE); Blood Urine NEGATIVE (NEGATIVE); Clarity Urine CLEAR (CLEAR); Color Urine LT. YELLOW (YELLOW); Glucose Urine UA NEGATIVE (NEGATIVE); Ketones Urine TRACE mg/dL (NEGATIVE); Leukocyte Esterase Urine NEGATIVE (NEGATIVE); Nitrite Urine NEGATIVE (NEGATIVE); Protein Urine NEGATIVE (NEG/TRACE); Specific Gravity Urine <=1.005 (1.005-1.025); Urine Microscopic Indicated NO; Urobilinogen Urine 0.2 EU/dL (0.2-1.0); pH Urine 6.5 (5.0-9.0)
[2024-09-12 17:17] VITALS: BP 132/64; PULSE 89
[2024-09-12 17:30] LABS: Basophils Percent Auto 0.3 % (0.2-2.0); Eosinophils Absolute Auto 0.1 10^3/uL (0.0-0.7); Eosinophils Percent Auto 1.1 % (0.9-7.0); Hematocrit 30.7 % (36.0-48.0); Hemoglobin 10.5 g/dL (12.0-16.0); Immature Granulocytes Abs Auto 0.06 10^3/uL (0.00-0.03); Immature Granulocytes Pct Auto 0.6 % (0.0-0.5); Lymphocytes Absolute Auto 1.7 10^3/uL (1.2-3.8); Lymphocytes Percent Auto 16.8 % (20.5-60.0); Mean Corpuscular HGB Conc 34.2 g/dL (29.9-35.2); Mean Corpuscular Hemoglobin 31.9 pg (26.7-34.0); Mean Corpuscular Volume 93.3 fL (81.0-99.0); Mean Platelet Volume 10.1 fL (9.5-13.5); Monocytes Absolute Auto 0.7 10^3/uL (0.3-0.8); Monocytes Percent Auto 6.4 % (1.7-12.0); Neutrophils Absolute Auto 7.6 10^3/uL (1.4-6.5); Neutrophils Percent Auto 74.8 % (43.0-75.0); Platelet Count 227 10^3/uL (150-450); Red Blood Count 3.29 10^6/uL (4.20-5.40); Red Cell Distribution Width 12.9 % (11.0-15.0); White Blood Count 10.1 10^3/uL (4.0-11.0)
[2024-09-12 17:41] LABS: Alanine Aminotransferase 23 U/L (14-59); Aspartate Amino Transferase 11 U/L (15-37); Estimated GFR (African America >60 (>=60 mL/min/1.73m^2); Estimated GFR (Non-African Ame >60 (>=60 mL/min/1.73m^2); Uric Acid 3.4 mg/dL (2.6-6.0)
[2024-09-12 17:59] LABS: INR 0.93; Partial Thromboplastin Time 25.2 sec (22.3-36.2); Prothrombin Time 9.9 sec (9.0-11.6)
[2024-09-12 18:00] LABS: Fibrinogen 425 mg/dL (200-400)
--- NOTE | 2024-09-12 18:55 | PC.NURSE ---
1706: Dr Ahumada called and orders received. 1800: 24 hour urine collection as outpatient explained and supplies given. Awaiting lab results. 1830: Labs received and patient discharged ambulatory. Denies headache, blurred vision or visual disturbances, denies epigastric pain.
== END 2024-09-12 18:35 | disposition home or self-care (01) ==
PROVIDERS: Admitting Provider Obstetrics & Gynecology; PCP Internal Medicine; Visit Provider Obstetrics & Gynecology
DX: O16.3 Unspecified maternal hypertension, third trimester (principal); Z3A.30 30 weeks gestation of pregnancy
CPT/HCPCS: 36415; 81003; 82565; 84450; 84460; 84520; 84550; 85025; 85384; 85610; 85730; G0378; G0379

== ENCOUNTER 2024-09-14 10:20 | Outpatient (REF) | payer OTHER, SELFPAY ==
--- OUTSIDE RECORDS SUMMARY | 2024-09-14 10:27 | XMS_ITS | CCD ---
Author Organization [facility] ion [facility] Care Team Providers Care Lock Fitter Name Role Phone LITO VELAZQUEZ Admitting Unavailable LITO VELAZQUEZ Attending Unavailable Josefina Kay Unavailable Robles Goldsmith DO Unavailable FEDE HAIRSTON Referring Unav Lito Duarte MD Primary Care Provider JAILENE HOWARD Referring Unavailable FEDE HAIRSTON Referring Unav ailable FEDE HAIRSTON Referring Unav Lito Duarte MD Primary Care Provider RUBY CANO Attending Unavailable LITO VELAZQUEZ Primary Care Unavailable GABRIEL BLACKWELL Attending Unavailable LITO VELAZQUEZ Primary Care Unavailable Josefina Harris RN Unavailable Lito Velazquez MD Primary Care Provider [phone] Jaime Davies RN Attending Provider [phone] Unavailable Primary Care Provider UnavailNEREYDA Delong Attending Unavailable SARAVANAN AHUMADA R Referring Unavailable Jaime Davies Attending Unavailable Jaime Davies Admitting Unavailable Lito Velazquez Primary Care Unavailable SARAVANAN AHUMADA Attending Unavailable ANDREW FERRER Attending Unavailable SARAVANAN AHUMADA Attending Unavailable SARAVANAN AHUMADA Referring Unavailable SARAVANAN AHUMADA Attending Unavailable LITO VELAZQUEZ Attending Unavailable RUPAL PATEL Attending Unavailable ZITASARAVANAN STONER Attending Unavailable SARAVANAN AHUMADA Referring Unavailable LITO VELAZQUEZ Referring Unavailable ROBLES GOLDSMITH Attending Unavailable Josefina Harris RN Unavailable ORTEGA MORRISSEY Referring Unavailable ORTEGA MORRISSEY Attending Unavailable MINDZORA, ORTEGA Referring Unavailable ATTARAN, DESHAWN Attending Unavailable ATTARAN, DESHAWN Referring Unavailable MINDZORA, ORTEGA Attending Unavailable MINDZORA, ORTEGA Referring Unavailable MINDZORA, ORTEGA Referring Unavailable TANTIBHEDHYANGKUL, LOREEUT Attending Unav ailable MINDZORA, ORTEGA Attending Unavailable SELF Referring Unavailable GALLAGHER, MIRTA Attending Unavailable MINDZORA, ORTEGA Referring Unavailable TANTIBHEDHYANGKUL, JULMARY Attending Unav ailable MINDZORA, ORTEGA Referring Unavailable VANESSA VO Attending Unavailable MINDZORA, ORTEGA Referring Unavailable MINDZORA, ORTEGA Referring Unavailable MINDZORA, ORTEGA Attending Unavailable MINDZORA, ORTEGA Referring Unavailable GALLAGHER, MIRTA Referring Unavailable ASPENLEONARDOIC Attending Unavailable Medications Current Medications Medication Drug Class(es) Dates Sig (Normalized) Sig (Original) acetaminophen 325 mg oral capsule (1 source) Start: 06-25-2019 take 2 capsules by mouth every four to six hours as needed for pain Acetaminophen 325 mg capsule Active 650 MG PO EVERY 4-6 HOURS as needed for pain 60 June 25, 2019 12:00am [id number] 200 actuat albuterol 0.09 mg/actuat metered dose inhaler (11 sources) beta2-Adrenergic Agonist Start: 08-15-2024 End: 08-15-2025 take 2 puff(s) by inhalation every six hours for wheezing albuterol HFA (Ventolin HFA) 90 mcg/act inhaler Indications: Seasonal allergies Inhale 2 puffs every 6 (six) hours if needed for wheezing 18 g 5 08/15/2024 08/15/2025 Active Blood Glucose Monitoring Suppl (D-Care Glucometer) w/Device kit (7 sources) Start: 08-25-2024 End: 08-25-2025 Blood Glucose Monitoring Suppl (D-Care Glucometer) w/Device kit Indications: Gestational diabetes mellitus (GDM), antepartum, gestational diabetes method of control unspecified (HHS-HCC) , Elevated glucose tolerance test 1 kit Daily Use four times daily to check FSBS. In the morning prior to breakfast & 1 hour after each meal for a total of 4times daily. 1 kit 08/25/2024 08/25/2025 Active Start: 08-25-2024 End: 08-25-[address] (D-Care Glucometer) w/Device kit Indications: Gestational diabetes mellitus (GDM), antepartum, gestational diabetes method of control unspecified , Elevated glucose tolerance test 1 kit Daily Use four times daily to check FSBS. In the morning prior to breakfast & 1 hour after each meal for a total of 4times daily. 1 kit 08/25/2024 08/25/2025 Active blood-glucose sensor (DEXCOM G7 SENSOR) device (2 sources) Start: 09-12-2024 blood-glucose sensor (DEXCOM G7 SENSOR) device Indications: Gestational diabetes requiring insulin , Elevated blood pressure affecting , antepartum Use to monitor blood glucose. Change every 10 days 5 each 10 09/12/2024 Active cholecalciferol 0.05 mg oral tablet (20 [...] needed for pain June 25, 2019 12:00am 3 ml insulin glargine 100 unt/ml pen injector (4 sources) Insulin Analog Start: 09-12-2024 Lantus SoloStar 100 UNIT/ML pen Inject 12 units every evening. Prime with 2 units. 09/12/2024 Active isopropyl alcohol 0.7 ml/ml medicated pad (7 sources) Start: 08-25-2024 Alcohol Swabs (Alcohol Prep Pad) 70 % pads Indications: Gestational diabetes mellitus (GDM), antepartum, gestational diabetes method of control unspecified ([facility]) , Elevated glucose tolerance test Apply 1 Pad topically Daily Use four times daily to check FSBS. 150 each 3 08/25/2024 Active ammonium lactate 120 mg/ml topical cream (20 sources) Start: 05-23-2024 End: 05-23-2025 ammonium lactate [...] ( 1 PO) Take by mouth Active [id number] acid ( 19) 29 mg iron- 1 mg tablet,chewable (8 sources) [id number] acid ( 19) 29 mg iron- 1 mg tablet,chewable Chew 1 tablet and swallow in the morning. Active valACYclovir 500 mg oral tablet (6 sources) Herpesvirus Nucleoside Analog DNA Polymerase Inhibitor, Herpes Simplex Virus Nucleoside Analog DNA Polymerase Inhibitor, Herpes Zoster Virus Nucleoside Analog DNA Polymerase Inhibitor Start: End: take 1 tablet by mouth once daily valACYclovir (Valtrex) 500 MG tablet 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 Take 1 tablet (500 mg) by mouth Daily 30 tablet 5 08/30/2024 02/26/2025 Active Completed/Discontinued Medications Medication Drug Class(es) Dates Sig (Normalized) Sig (Original) chorionic gonadotropin 53911 unt/ml injectable solution (13 sources) Gonadotropin Start: 02-17-2024 End: 03-17-2024 inject 38772 [IU] by subcutaneous injection once chorionic gonadotropin [...] propionate 0.05 mg/actuat metered dose nasal spray (12 sources) Corticosteroid Start: 03-08-2024 End: 07-17-2024 fluticasone (Flonase) 50 MCG/ACT nasal spray 2 sprays in the morning. 03/08/2024 07/17/2024 Discontinued Start: 03-08-2024 End: 06-06-2024 take 2 spray(s) nasal route once daily fluticasone (Flonase) 50 mcg/actuation nasal spray Indications: Chronic allergic rhinitis Administer 2 sprays into each nostril once daily. 48 mL 3 03/08/2024 06/06/2024 Active take 1 spray(s) nasa l route in the morning fluticasone propionate (FLONASE) 50 mcg/actuation nasal spray Administer 1 spray into each nostril in the morning. Active iv contrast (will be provided with [...] 2 02/15/2024 02/28/2024 Discontinued Start: 01-04-2023 End: 09-12-2024 letrozole (FEMARA) 2.5 mg ta blet Take 1 tablet by mouth once daily for 5 days. Menstrual cycle day 3-7 5 tablet 3 01/04/2023 Active Start: 01-04-2023 End: 03-27-2024 take 1 tablet by mouth every other day letrozole (Femara) 2.5 MG chemo tablet Take 2.5 mg by mouth every other day. 01/04/2023 03/27/2024 Discontinued Comment on above: Take 1 tablet by alverto th once daily for 5 days. Menstrual cycle day 3-7 Take 2 tablets by mo ut once daily. Take day 3-7 of her cycle medroxyPROGESTERone acetate 10 mg oral tablet (20 sources) Progestin Start: 2022 End: 2023 medroxyPROGESTERone (Provera) 10 MG tablet 09/09/2023 03/27/2024 Discontinued Comment on above: Take 1 tablet by alverto th once daily for 10 days. 24 hr metFORMIN hydrochloride 500 mg extended release oral tablet (20 sources) Biguanide Start: 2024 End: 2024 take 1 tablet by mouth every hour metFORMIN XR (GLUCOPHAGE XR) 500 mg 24 hr tablet Take 1 tablet (500 mg total) by mouth Every 12 (twelve) hours. 09/05/2024 09/06/2024 Discontinued (Patient Never Started This Medication) Start: 03-03-2024 End: 07-17-2024 metFORMIN XR (Glucophage-XR) 500 MG 24 hr tablet 03/03/2024 07/17/2024 Discontinued Start: 01-04-2023 End: 09-11-2024 take 3 tablets by mouth once daily at breakfast, then take 1 tablet by mouth once daily, then take 3 tablets by mouth once daily metFORMIN ER (GLUCOPHAGE XR) 500 mg 24 hr tablet Take 3 tablets by mouth daily with breakfast. Start with 1 tablet daily and slowly increase the dose up to 3 tablets daily. 90 tablet 11 02/17/2024 09/11/2024 Discontinued End: 03-27-2024 take 2 tablets by mouth once daily metFORMIN (Glucophage) 500 MG tablet Take 2 tablets by mouth Daily 03/27/2024 Discontinued Comment on above: Take 3 tablets by mo uth daily with breakfast. Start with 1 tablet daily and slowly increase the dose up to 3 tablets daily. progesterone 200 mg oral capsule (20 sources) Progesterone Start: 10-26-2023 End: 09-11-2024 progesterone micronized (PROMETRIUM) 200 mg capsule Use 1 capsule vaginally two times a day. 180 capsule 10/26/2023 09/11/2024 Discontinued take 1 capsule by mouth in the m orning progesterone (PROMETRIUM) 200 mg capsule Take 1 capsule (200 mg total) by mouth in the morning. Active Problems Active Problems Problem Classification Problem Date Documented Da te Episodic/Chronic Administrative/social admission (1 source) Treatment plan given; Translations: [Counseling, unspecified] 10-20-2023 Episodic Anxiety disorders (20 sources) Generalized anxiety disorder; Translations: [Generalized anxiety disorder] Onset: 3 12-29-2022 Chronic Asthma (1 source) Asthma; Translations: [Unspecified asthma, uncomplicated] Chronic Cardiac dysrhythmias (7 sources) Palpitations; Translations: [Palpitations] Onset: 5 07-18-2024 Episodic Diabetes or abnormal glucose tolerance complicating ; childbirth; or the puerperium (11 sources) Gestational diabetes mellitus in , unspecified control; Translations: [Gestational diabetes mellitus] Onset: 5 08-31-2024 Episodic Disorders of teeth and jaw (3 sources) Temporomandibular joint disorder; Translations: [Unspecified temporomandibular joint disorder, unspecified side] Onset: 4 03-08-2024 Episodic Female infertility (12 sources) Female infertility; Translations: [Female infertility, unspecified] Onset: 4 09-10-2023 Chronic Heart valve disorders (4 sources) Heart murmur; Translations: [Cardiac murmur, unspecified] 07-18-2024 Episodic Hypertension complicating ; childbirth and the puerperium (3 sources) Hypertension complicating ; Translations: [Unspecified maternal hypertension, unspecified trimester] Onset: 5 09-12-2024 Chronic Inflammatory diseases of female pelvic organs (1 source) Bacterial vaginosis; Translations: [Acute vaginitis] 02-15-2024 Episodic Lymphadenitis (1 source) Localized enlarged lymph nodes; Translations: [Localized enlarged lymph nodes] 06-16-2023 Episodic Malaise and fatigue (20 sources) Chronic [...] nail, initial encounter Episodic Other complications of (2 sources) Spotting [...] elsewhere classified] Onset: 4 07-13-2023 Chronic Other liver diseases (3 sources) Liver enzymes abnormal; Translations: [Abnormal levels of other serum enzymes] Onset: 5 09-12-2024 Episodic Other nervous system disorders (1 source) Chronic [...] excess calories] Onset: 4 08-17-2023 Chronic Other and delivery including normal (15 sources) test positive; Translations: [Encounter for test, result positive] 03-16-2024 Episodic Other screening for suspected conditions (not mental disorders or infectious disease) (3 sources) Cancer cervix screening status; Translations: [Encounter [...] rhinitis, unspecified; Translations: [Allergic rhinitis, unspecified] Onset: Chronic Other upper respiratory infections (3 sources) [...] [26 weeks gestation of ] 08-16-2024 Episodic Residual codes; unclassified (2 sources) Gestation period, 28 weeks; Translations: [28 weeks gestation of ] 08-30-2024 Episodic Residual codes; unclassified (2 sources) Gestation period, 31 weeks; Translations: [31 weeks gestation of ] 09-13-2024 Episodic Superficial injury; contusion (1 source) Contusion of left knee; Translations: [Contusion of left knee, initial encounter] 06-25-2019 Episodic Unclassified (20 sources) OB Reminders Onset: 5 04-30-2024 Unclassified (1 source) Elevated Glucose Tolerance Test Onset: Urinary tract infections (1 source) Urinary tract infectious disease; Translations: [Urinary tract infection, site not specified] 05-15-2024 Episodic Viral infection (20 sources) Genital herpes simplex; Translations: [Herpesviral infection of urogenital system, unspecified] Onset: 12-29-2022 Chronic Viral infection (2 sources) Herpesviral vesicular dermatitis; Translations: [Other herpesviral infection] 08-30-2024 Episodic Past or Other Problems Problem Classification Problem Date Documented Date Episodic/Chronic Contraceptive and procreative management (20 sources) Patient encounter status; Translations: [Encounter for fertility testing] Onset: 07-29-2023 02-04-2023 Episodic Esophageal disorders (20 sources) Gastroesophageal reflux disease; Translations: [Gastro-esophageal reflux disease without esophagitis] Onset: 10-05-2022 Resolved: 08-17-2023 12-29-2022 Chronic Other complications of (4 sources) Supervision of with history of infertility, first trimester; Translations: [Supervision of high-risk with history of infertility] Onset: 2024 03-13-2024 Episodic Residual codes; unclassified (20 sources) Genetic mutation; Translations: [Genetic susceptibility to other disease] Onset: 08-17-2023 06-16-2023 Episodic Residual codes; unclassified (1 source) Family history of malignant neoplasm of breast; Translations: [Family history of breast cancer] Onset: 04-21-2023 Episodic Residual codes; unclassified (1 source) Family history of malignant neoplasm of prostate; Translations: [Family history of prostate cancer] Onset: 04-21-2023 Episodic Residual codes; unclassified (1 source) Genetic susceptibility to other disease; 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] Onset: 08-17-2023 Episodic Unclassified (1 source) Onset: 03-08-2024 03-08-2024 Results Test Name Value Interpretation Reference Range Facility Urinalysis macro (dipstick) panel (U)on 09-13-2024 Bilirubin, UA Negative Negative - 4(70) +++ mg/dL [facility] Blood, UA Negative Negative - 50 Jorge Luis/mcL [facility] Clarity, UA Clear [facility] Color, UA Yellow [facility] Glucose, UA Negative Negative - 1999(110) ++++ mg/dL [facility] Interpretation and review of laboratory results Normal [facility] Ketones, UA Negative Negative - 160(16) ++++ mg/dL [facility] Leukocytes, UA Negative Negative - 500+++ Flori/mcL [facility] Nitrite, UA Negative Negative - Positive [facility] pH, UA 7 5 - 9 [facility] Protein, UA Negative Negative - 1999(20) ++++ mg/dL [facility] Spec Grav, UA 1.02 1 - 1.03 [facility] Urobilinogen, UA 0.2 0.2 - 12 mg/dL [facility] UA (CLEAN/CATCH) FUSING FURNACE LOADER/PO RO IF IND.on 09-12-2024 BILIRUBIN URINE Negative NEGATIVE [facility] BLOOD URINE Negative NEGATIVE [facility] Clarity (U) CLEAR CLEAR [facility] Color (U) LT. YELLOW YELLOW [facility] GLUCOSE URINE UA Negative NEGATIVE mg/dL [facility] Interpretation and review of laboratory results Abnormal [facility] Ketones Ql (U) TRACE Abnormal NEGATIVE mg/dL [facility] Leukocyte esterase Test strip Ql (U) Negative NEGATIVE [facility] NITRITE URINE Negative NEGATIVE [facility] pH (U) 6.5 [pH] 5.0 - 9.0 [facility] PROTEIN URINE Negative NEG/TRACE mg/dL [facility] SPECIFIC GRAVITY URINE <=1.005 Abnormal 1.005 - 1.025 [facility] URINE MICROSCOPIC INDICATED NO [facility] UROBILINOGEN URINE 0.2 EU/dL 0.2 - 1.0 EU/dL [facility] US OB FOLLOW UP TRANSABDOMIN AL APPROACHon 09-06-2024 US OB FOLLOW UP TRANSABDOMINAL APPROACH EXAM: US OB FOLLOW UP TRANSABDOMINAL APPROACH [...] II, MD, PHD at 08-Sep-2024 10:22:30 AM [facility] Normal Not Available Comment on above: Order Comment: US OB SCAN FOR GROWTH Estimated Date of Delivery: 11/19/24 Gestational Age as of 08/30/2024: 28w3d Glucose random or fasting- P OCTon 08-31-2024 External Glucose Fasting Or Random (Fbs) 99 [facility] Ultrasound - Officeon 2024 Radiology Study observation (narrative) [facility] Radiology Study observation (narrative) [facility] ECH echo transthoracicon [facility] echo transthoracic [facility] [place] [address] Echocardiogram Signed Patient: Lissa Rivas MR#: [id number] : 1995 Acct:[id number] Age/Sex: 29 / F ADM Date: 08/24/24 Loc: Room: Type: [facility] Attending Dr: Jamie Davies RN, MSN, ANP-C Ordering Provider: JAIME DAVIES RN, MSN Date of Service: 08/24/24/ ECH/ECH echo transthoracic: Palpitations. Murmur. Copies to: MD SAMSON Mckeon MICHELE L RN, MSN Lissa Bowen 12:39 PM Patient Location: : 1995 Gender: Female (MM/DD/YYYY) Age: 29 Years Ordering Physician: Jaime Davies Height: 62.99 in Weight: 225.004 lb Performed By: Jailene Abbasi RAFIQ BSA: 2.03 m2 HR: 93 bpm Reason [...] mean: 113.5 cm/sec MV dec slope: 677.9 cm/sec?? Ao V2 VTI: 24.6 cm E/E' lat: 9.0 LASHAE(I,D): 2.5 cm2 E/E' med: 11.0 LASHAE(V,D): 2.08 cm2 TV max P.0 mmHg LV V1 max: 95.2 cm/sec TR max bernice: 257.9 cm/sec LV V1 max P.6 mmHg TR max P.6 mmHg LV V1 mean: 64.2 cm/sec LV V1 mean P.88 mmHg LV V1 VTI: 19.2 cm + -------+ + -----+ -------+ : Electronically : : signed by: Iveth : : : : Toña : : : : on: 08/24/2024, : : 6:35 PM : Transcribed By: HERNAN Performed At: 08/24/24 1239 Signed By: Iveth Ding MD 08/24/24 8842 Normal [facility] ALL CBC WITH AUTO DIFFon BASOPHILS ABSOLUTE AUTO 0 N [facility] Basophils/100 WBC (Bld) 0.3 % 0.2 - 2.0 % [facility] Eosinophils/100 WBC (Bld) 1.4 % 0.9 - 7.0 % [facility] Erythrocyte distribution width (RBC) [Ratio] 13 % 11.0 - 15.0 % [facility] Hematocrit (Bld) [Volume fraction] 32 % Low 36.0 - 48.0 % [facility] Hemoglobin (Bld) [Mass/Vol] 10.6 g/dL Low 12.0 - 16.0 g/dL [facility] IMMATURE GRANULOCYTES ABS AUTO 0.06 High [facility] Immature granulocytes/100 WBC (Bld) 0.7 % High 0.0 - 0.5 % [facility] Interpretation and review of laboratory results Abnormal [facility] LYMPHOCYTES ABSOLUTE AUTO 1.7 [facility] Lymphocytes/100 WBC (Bld) 18.8 % Low 20.5 - 60.0 % [facility] MCH (RBC) [Entitic mass] 31.6 pg 26. 7 - 34.0 pg [facility] MCHC (RBC) [Mass/Vol] 33.1 g/dL 29.9 - 35.2 g/dL [facility] MCV (RBC) [Entitic vol] 95.5 fL 81.0 - 99.0 fL [facility] MONOCYTES ABSOLUTE AUTO 0.5 N [facility] Monocytes/100 WBC (Bld) 5.3 % 1.7 - 12.0 % [facility] NEUTROPHILS ABSOLUTE AUTO 6.5 [facility] Neutrophils/100 WBC (Bld) 73.5 % 43.0 - 75.0 % [facility] Platelet mean volume (Bld) [Entitic vol] 9.8 fL 9.5 - 13.5 fL [facility] TBH EO # 0.1 [facility] TBH PLT 211 [facility] TB RBC 3.35 Low [facility]H WBC 8.8 [facility] Glucose 1h post 50g loadon 0 08-23-2024 Glucose, 1 hr PP 50GM dose 181 [facility] No Panel Informationon 08-23 [facility] Urinalysis macro (dipstick) panel (U)on 08-16-2024 Bilirubin, UA Negative Negative - 4(70) +++ mg/dL [facility] Blood, UA Negative Negative - 50 Jorge Luis/mcL [facility] Clarity, UA Clear [facility] Color, UA Yellow [facility] Glucose, UA Positive Negative - 1999(110) ++++ mg/dL [facility] Comment on above: 100mg/dL Interpretation and review of laboratory results Abnormal [facility] Ketones, UA Positive Negative - 160(16) ++++ mg/dL [facility] Comment on above: 15mg/dL Leukocytes, UA Negative Negative - 500+++ Flori/mcL [facility] Nitrite, UA Negative Negative - Positive [facility] pH, UA 6.5 5 - 9 [facility] Protein, UA Negative Negative - 2000(20) ++++ mg/dL [facility] Spec Grav, UA 1.02 1 - 1.03 [facility] Urobilinogen, UA 0.2 0.2 - 12 mg/dL [facility] US OB INCOMPLETE ANATOMYon 0 08-07-2024 [place] [address] Ultrasound Report Signed Patient: LISSA RIVAS MR#: [id number] : 1995 Acct:[id number] Age/Sex: 29 / F ADM Date: 08/04/24 Loc: US Attending Dr: Saravanan Ahumada D.O. Ordering Physician: Saravanan Ahumada D.O. Date of Service: 08/04/24 Procedure(s): US OB incomplete anatomy Accession Number(s): [id number] cc: Saravanan Ahumada D.O.; LITO VELAZQUEZ [place] [address] Patient Name: LISSA RIVAS MRN: [facility]:[id number] date: 1995 Sex: F Assigned Patient Location: US Current Patient Location: Accession/Order Number: [id number] Exam Date: 08/07/2024 09:41 Report Date: 08/07/2024 [...] Gage M.D. 08/07/2024 9:48 AM Dictation Location: [place] [address] Electronically authenticated by: [id number] Y Date: 08/07/2024 09:48 Dictated By: Paula Gage M.D. Signed By: 08/07/2450 DD/ TD/TT: Resident Engineer: [facility] Radiology, Radiologist, MD - 08/07/2024 [place] [address] Ultrasound Report Signed Patient: LISSA RIVAS MR#: [id number] : 1995 Acct:[id number] Age/Sex: 29 / F ADM Date: 08/04/24 Loc: US Attending Dr: Saravanan Ahumada D.O. Ordering Physician: Saravanan Ahumada D.O. Date of Service: 08/04/24 Procedure(s): US OB incomplete anatomy Accession Number(s): [id number] cc: Saravanan Ahumada D.O.; LITO VELAZQUEZ [place] [id number] Patient Name: LISSA RIVAS MRN: [facility]:[id number] date: 1995 Sex: F Assigned Patient Location: US Current Patient Location: Accession/Order Number: [id number] Exam Date: 08/07/2024 09:41 Report Date: 08/07/2024 [...] Gage M.D. 08/07/2024 9:48 AM Dictation Location: [place] [address] Electronically authenticated by: [id number] Y Date: 08/07/2024 09:48 Dictated By: Paula Gage M.D. Signed By: 08/07/2450 DD/ TD/TT: Resident Engineer: [facility] Radiology Study observation (narrative) [facility] OB INCOMPLETE ANATOMYOrde red By: Radiologist Radiology on 08-07-2024 [facility] Work Phone: Urinalysis macro (dipstick) panel (U)on 07-17-2024 Bilirubin, UA Negative Negative - 4(70) +++ mg/dL [facility] Blood, UA Positive Negative - 50 Jorge Luis/mcL [facility] Comment on above: Trace-lysed Clarity, UA Clear [facility] Color, UA Yellow [facility] Glucose, UA Negative Negative - 2000(110) ++++ mg/dL [facility] Interpretation and review of laboratory results Abnormal [facility] Ketones, UA Negative Negative - 160(16) ++++ mg/dL [facility] Leukocytes, UA Negative Negative - 500+++ Flori/mcL [facility] Nitrite, UA Negative Negative - Positive [facility] pH, UA 7 5 - 9 [facility] Protein, UA Trace Negative - 1999(20) ++++ mg/dL [facility] Spec Grav, UA 1.02 1 - 1.03 [facility] Urobilinogen, UA 0.2 0.2 - 12 mg/dL [facility] US OB 14+ WEEKS ANATOMY SCAN on [...] II, MD, PHD at 07-Jul-2024 06:23:52 AM [facility] Normal Not Available Comment on above: Order Comment: US OB ANATOMY SINGLE W US OB CERVICAL LENGTH Estimated Date of Delivery: 11/19/24 Gestational Age as of 06/19/2024: 18w1d C. trachomatis DNA JANESSA+probe Ql (Unsp spec)on 06-19-2024 Chlamydia Dna(Pcr) Negative [facility] Gonorrhoeae Dna(Pcr) Negative [facility] US OB LIMITED 1+ FETUSESon 0 06-19-2024 US OB LIMITED 1+ FETUSES EXAM: US OB CUNHA ITED 1+ FETUSES HISTORY: Complete previa. COMPARISON: OB [...] II, MD, PHD at 20-Jun-2024 09:56:32 AM [facility] Normal Not Available Comment on above: Order Comment: US OB PLACENTA W US OB TRANSVAGINAL Estimated Date of Delivery: 11/19/24 Gestational Age as of 06/19/2024: 18w1d Ultrasound - Officeon 2024 [facility] US OB CERVICAL LENGTHon 04-[address] [address] Ultrasound Report Signed Patient: EMILEE RIVAS MR#: [id number] : 1995 Acct:[id number] Age/Sex: 29 / F ADM Date: 05/23/24 Loc: US Attending Dr: Saravanan Ahumada D.O. Ordering Physician: Saravanan Ahumada D.O. Date of Service: 05/23/24 Procedure(s): US OB cervical length Accession Number(s): [id number] cc: Saravanan Ahumada D.O.; LITO VELAZQUEZ [place] [address] Patient Name: EMILEE RIVAS MRN: [facility]:[id number] date: 1995 Sex: F Assigned Patient Location: US Current Patient Location: US Accession/Order Number: [id number] Exam Date: 05/23/2024 23:10 Report Date: 05/23/2024 [...] Harmon Jr., D.O.05/23/2024 11:13 PM Dictation Location: [place] [address] Electronically authenticated by: [id number] Y Date: 05/23/2024 23:13 Dictated By: Navjot Harmon M.D. Signed By: 05/23/242314 DD/ 12 TD/TT: Resident Engineer: [facility] Radiology, Radiologist, - 05/24/2024 [place] [address] Ultrasound Report Signed Patient: EMILEE RIVAS MR#: [id number] : 1995 Acct:[id number] Age/Sex: 29 / F ADM Date: 05/23/24 Loc: US Attending Dr: Saravanan Ahumada D.O. Ordering Physician: Saravanan Ahumada D.O. Date of Service: 05/23/24 Procedure(s): US OB cervical length Accession Number(s): [id number] cc: Saravanan Ahumada D.O.; LITO VELAZQUEZ [place] [address] Patient Name: EMILEE RIVAS MRN: [facility]:[id number] date: 1995 Sex: F Assigned Patient Location: US Current Patient Location: US Accession/Order Number: [id number] Exam Date: 05/23/2024 23:10 Report Date: 05/23/2024 [...] Harmon Jr., D.O.05/23/2024 11:13 PM Dictation Location: [place] [address] Electronically authenticated by: [id number] Y Date: 05/23/2024 23:13 Dictated By: Navjot Harmon M.D. Signed By: 05/23/242314 DD/ 12 TD/TT: Resident Engineer: [facility] Radiology Study observation (narrative) [facility] US OB CERVICAL LENGTHOrdered By: Radiologist Radiology on 05-23-2024 [facility] Work Phone: Unlisted Lab Teston 05-22-19 [facility] Urinalysis macro (dipstick) panel (U)on 05-22-2024 Bilirubin, UA Negative Negative - 4(70) +++ mg/dL [facility] Blood, UA Negative Negative - 50 Jorge Luis/mcL [facility] Clarity, UA Clear [facility] Color, UA Yellow [facility] Glucose, UA Negative Negative - 1999(110) ++++ mg/dL [facility] Interpretation and review of laboratory results Normal [facility] Ketones, UA Negative Negative - 160(16) ++++ mg/dL [facility] Leukocytes, UA Negative Negative - 500+++ Folri/mcL [facility] Nitrite, UA Negative Negative - Positive [facility] pH, UA 7 5 - 9 [facility] Protein, UA Negative Negative - 1999(20) ++++ mg/dL [facility] Spec Grav, UA 1.015 1 - 1.03 [facility] Urobilinogen, UA 0.2 0.2 - 12 mg/dL [facility] Urinalysis macro (dipstick) panel (U)on 05-15-2024 Bilirubin, UA Negative Negative - 4(70) +++ mg/dL [facility] Blood, UA Negative Negative - 50 Jorge Luis/mcL [facility] Clarity, UA Clear [facility] Color, UA Yellow [facility] Glucose, UA Negative Negative - 1999(110) ++++ mg/dL [facility] Interpretation and review of laboratory results Normal [facility] Ketones, UA Negative Negative - 160(16) ++++ mg/dL [facility] Leukocytes, UA Negative Negative - 500+++ Flori/mcL [facility] Nitrite, UA Negative Negative - Positive [facility] pH, UA 6 5 - 9 [facility] Protein, UA Negative Negative - 1999(20) ++++ mg/dL [facility] Spec Grav, UA 1.01 1 - 1.03 [facility] Urobilinogen, UA 0.2 0.2 - 12 mg/dL [facility] AFP Single Marker Scrn, Mate rnal, Serumon 04-21-2024 [facility] BOX TESTon 04-21-2024 BOX TEST SENT OUT 04/21/24 [facility] BOX1 [facility] BOX2 [facility] BOX CLINISYNC [facility] Drug Screen, Urineon 025 Benzodiazepines Negative [facility] Cocaine Metabolite Negative [facility] Opiates Negative [facility] Phencyclidine Negative [facility] Thc Marijuana, Urine Negative [facility] HBV surface Ag IA Qlon 04-21 Hepatitis B Surface Antigen Negative [facility] HCG ( test) Ql (U)o n 04-21-2024 Interpretation and review of laboratory results Abnormal [facility] Preg Test, Ur Positive Negative [facility] HCV Ab IA Qlon 04-21-2024 HCV Ab Ql (S) Non-Reactive [facility] HIV 1+2 Ab+HIV1 p24 Ag IA Ql on 04-21-2024 HIV 1&2 AB/AG Non-Reactive [facility] Hemoglobin A1con 04-21-2024 HbA1c (Bld) [Mass fraction] 5.4 % 4.0 - 6.0 % [facility] No Panel Informationon 04-21 [facility] Rubella IGG immune statuson 04-21-2024 Rubella immune IgG non immune [facility] T. pallidum IgG+IgM IA Ql (S )on 04-21-2024 Syphilis Non-Reactive [facility] Type and screenon 04-21-2024 Abo/Rh(D) Negative [facility] US OB TRANSVAGINALon 025 US OB [...] UA Negative Negative - 4(70) +++ mg/dL [facility] Blood, UA Negative Negative - 50 Jorge Luis/mcL [facility] Clarity, UA Clear [facility] Color, UA Yellow [facility] Glucose, UA Negative Negative - 1999(110) ++++ mg/dL [facility] Interpretation and review of laboratory results Normal [facility] Ketones, UA Negative Negative - 160(16) ++++ mg/dL [facility] Leukocytes, UA Negative Negative - 500+++ Flori/mcL [facility] Nitrite, UA Negative Negative - Positive [facility] pH, UA 7 5 - 9 [facility] Protein, UA Negative Negative - 1999(20) ++++ mg/dL [facility] Spec Grav, UA 1.02 1 - 1.03 [facility] Urobilinogen, UA 0.2 0.2 - 12 mg/dL [facility] CNNURSEon 2024 CNNURSE Nurse Visit (REIAV) LISSA RIVAS ([id number]) 1995 F Date Time Provider Department 04/03/24 11:10 AM [facility] REJ REIAV During your visit today, we recorded the following information about you: Ortega Morrissey, DEBBIE.SR. DIRECTOR 2024 4:38 PM Signed Lissa Rivas here [...] Plan Move on to OB Ortega Morrissey APRN.SR. DIRECTOR 2024 4:34 PM Referring Provider: ORTEGA MORRISSEY [[id number]] Allergies As of Date: 2024 (No Known Allergies) Date Reviewed: 02/23/2024 Reviewed by: Paula Hester RN - Fully Assessed Visit Diagnosis:Supervision of with history of infertility, first trimester [O09.01] Order(s):OBSTETRIC ULTRASOUND [facility] [[id number]] Order #: [id number]. #:[id number] EWPOINTQty: 1 Prescriptions as of 2024 - metFORMIN [...] Status:Closed by JAILENE HOWARD on 04/03/24 Normal [facility] Examination level ultrasound on 2024 Indication Viability Impression - Single, live, intrauterine . - An intrauterine gestational sac with a yolk sac and pole is present. - [place] rump length measurement is NOT consistent with [...] Read By: Jailene Howard M.D. MATERNAL MEDICINE [facility] Radiology Study observation (narrative) Theresa torres [facility] Ultrasound - Officeon 2024 [facility] Drug Screen, Urineon 024 Amphetamine/Methamphetam ine Negative [facility] Barbiturates Negative [facility] Methadone Negative [facility] Oxycodone Negative [facility] CONSULT PROGon 03-20-2024 CONSULT PROG HNO ID: [id number] Author: FEDE HAIRSTON MD Service: ? Author [...] Hysteroscopy Laparoscopy OPK (Ovulation Predictor Kit) Ovarian [facility] 10.91 High 01/04/2023 Saline Ultrasound Semen [...] visit. Either the patient or their legal new accounts representative has been informed of the risks and benefits of -- and alternatives to -- treatment through a remote evaluation and consents to proceed with the evaluation remotely. I spent a total of 30 minutes on the date of the service which included preparing to see the patient, [id number] patient care, counseling and educating the patient/family/caregiv er, ordering medications, tests, or procedures, communicating results to the patient/family/caregiv er, and care coordination (not separately reported). MD Kim Branch MD Normal [facility] B-HCG SerPl-aCncon 4 HCG.beta subunit Qn 190.7 m[IU]/mL High <5.0 [facility] Comment on above: Order Comment: Speci men Type: BLOOD SPECIMENOrdering Facility: [facility] Address: [address] [place] [address] Result Comment: LUCA TITATIVE HCG NORMAL RANGES Weeks of Gestation (Weeks Since LMP) 3 Weeks (5.8-71.2 mIU/mL) 4 Weeks (9.5-750 mIU/mL) 5 Weeks (217-7138 mIU/mL) 6 Weeks (158-29473 mIU/mL) 7 Weeks (3697-831654 mIU/mL) 8 Weeks (52113-547108 mIU/mL) 9 Weeks (79193-834720 mIU/mL) 10 Weeks (86903-072733 mIU/mL) 12 Weeks (18967-516922 mIU/mL) Referenced to 4th IS of BS Performed By: #### 2 1198-7 ####[facility] [id number] [place] [address] [place] B-HCG SerPl-aCncon 4 HCG.beta subunit Qn 87.6 m[IU]/mL High <5.0 [facility] Comment on above: Order Comment: Speci men Type: BLOOD SPECIMENOrdering Facility: [facility] Address: [address] [place] [address] Result Comment: LUCA TITATIVE HCG NORMAL RANGES Weeks of Gestation (Weeks Since LMP) 3 Weeks (5.8-71.2 mIU/mL) 4 Weeks (9.5-750 mIU/mL) 5 Weeks (217-7138 mIU/mL) 6 Weeks (158-30020 mIU/mL) 7 Weeks (3697-073555 mIU/mL) 8 Weeks (26270-578621 mIU/mL) 9 Weeks (76455-462051 mIU/mL) 10 Weeks (53789-579649 mIU/mL) 12 Weeks (81056-400660 mIU/mL) Referenced to 4th IS of [facility] Performed By: #### 2 1198-7 ####[facility] [id number] [place] [address] [place] B-HCG SerPl-aCncon 4 HCG.beta subunit Qn 21.9 m[IU]/mL High <5.0 [facility] Comment on above: Order Comment: Speci men Type: BLOOD SPECIMENOrdering Facility: [facility] Address: [address] [place] [address] Result Comment: LUCA TITATIVE HCG NORMAL RANGES Weeks of Gestation (Weeks Since LMP) 3 Weeks (5.8-71.2 mIU/mL) 4 Weeks (9.5-750 mIU/mL) 5 Weeks (217-7138 mIU/mL) 6 Weeks (158-80597 mIU/mL) 7 Weeks (3697-237237 mIU/mL) 8 Weeks (40192-277595 mIU/mL) 9 Weeks (67619-054339 mIU/mL) 10 Weeks (35842-949203 mIU/mL) 12 Weeks (16736-677574 mIU/mL) Referenced to 4th IS of [facility] Performed By: #### 2 1198-7 ####[facility]IA [id number] [place] [id number] [facility] CNPN Telephone (REIBD) LISSA RIVAS ([id number]) 1995 F Date Time Provider Department 03/13/24 FEDE HAIRSTON During your visit today, we recorded the following information about you: Ayanna Wise 03/13/2024 11:56 AM Signed Patient states she skipped this month and has +hpt, please follow up with patient. Ortega Morrissey APRN.SR. DIRECTOR 03/13/2024 1:37 PM Signed Patient calls with [...] ordered: HCG x2 FYI Dr. Bill Morrissey, DEBBIE.SR. DIRECTOR March 13, 2024 1:37 PM Allergies As of Date: 03/13/2024 (No Known Allergies) Date Reviewed: 02/23/2024 Reviewed by: Paula Hester, ARIC - Fully Assessed Reason for Visit: +hpt today/lmp 02/12 skipped treatment this month [Other] Primary Visit Diagnosis:Supervision of with history of infertility, first trimester [O09.01] Other Visit Diagnosis: examination or test, unconfirmed [Z32.00] Order(s):HCG QUANTITATIVE [SQHCGQT] Order #: [id number] STANDING Prescriptions as of 03/13/2024 - metFORMIN [...] Status:Closed by ORTEGA MORRISSEY on 03/13/24 Normal [facility] Progest Laurent-Avni 024 Progesterone [Mass/Vol] 17.8 ng/mL Normal See comment [facility] Comment on above: Order Comment: Speci men Type: BLOOD SPECIMENOrdering Facility: [facility] Address: [address] [place] [address] Result Comment: Mens trual Cycle Progesterone Reference Ranges: Follicular: <1.0 ng/mL Ovulation: <12.1 ng/mL Luteal: 1.8 to 23.9 ng/mL. Progesterone Reference Ranges vary by gestational period: First Trimester: 11.0 to 44.3 ng/mL Second Trimester: 25.4 to 83.3 ng/mL Third Trimester: 58.7 to 214 ng/mL Post menopausal Progesterone: <0.5 ng/mL Reference: 1. Progesterone (Progesterone III) [package insert V 1.0 Wolof]. [facility], [place], [place]. December 2014. Performed By: #### 2 839-9 ####[facility] LABCLIA [id number] [place] [id number] [facility] 02-28-2024 JORDANN Telephone (REIBD) LISSA RIVAS ([id number]) 1995 F Date Time Provider Department 02/28/24 FEDE HAIRSTON During your visit today, we recorded the following information about you: Joanna Garces 02/28/2024 8:23 AM Signed Pt is not financially clear yet should she still schedule it after she pays Ortega Morrissey APRN.SR. DIRECTOR 02/28/2024 11:54 AM Signed Spoke with Thao, [...] cycle day 3-7 Authorizing Provider: ORTEGA MORRISSEY APRN.SR. DIRECTOR February 28, 2024 11:54 AM Allergies As of Date: 02/28/2024 (No Known Allergies) Date Reviewed: 02/23/2024 Reviewed by: Paula Hester, ARIC - Fully Assessed Reason for Visit: ortega cueva is not cleared for us should she still have it do [Other] Primary Visit Diagnosis:Female infertility [N97.9] Order(s):PROGESTERONE [SQPROG] Order #: [id number] FUTURE letrozole (FEMARA) 2.5 mg tabletTake 3 [...] Status:Closed by ORTEGA MORRISSEY on 02/28/24 Normal [facility] 25(OH)D3 Yolandal-misa 2023 25-hydroxyvitamin D3 [Mass/Vol] 49.3 ng/mL Normal 31.0-80.0 [facility] Comment on above: Order Comment: Speci men Type: BLOOD SPECIMEN [facility] Facility: [facility] Address: [address] [place] [address] Result Comment: Clas sification of 25 [place] Vitamin D status: Deficiency/Insufficiency: < or = 30 ng/ml. Sufficiency/Optimal Levels: 31-80 ng/mL Toxicity: > 100 ng/mL. Test performed by chemiluminescent immunoassay. Performed By: #### 1 989-3 #### [facility] CLIA [id number] [address] [place] [address] [place] 25-hydroxyvitamin D3 [Mass/V ol]on 02-23-2024 Interpretation and review of laboratory results Normal [facility] The reference range interval was based on an analysis of samples from healthy adults and may not pertain to children from 0-18 years old. [facility] CBC panel Auto (Bld)on 02-22 Erythrocyte distribution width (RBC) [Ratio] 12.4 % 11.5 - 15.0 % [facility] Hematocrit (Bld) [Volume fraction] 40.6 % 36.0 - 46.0 % [facility] Hemoglobin (Bld) [Mass/Vol] 13.5 g/dL 11.5 - 15.5 g/dL [facility] Interpretation and review of laboratory results Normal [facility] MCH (RBC) [Entitic mass] 31.1 pg 26. 0 - 34.0 pg [facility] MCHC (RBC) [Mass/Vol] 33.3 g/dL 30.5 - 36.0 g/dL [facility] MCV (RBC) [Entitic vol] 93.5 fL 80.0 - 100.0 fL [facility] Nucleated RBC (Bld) [#/Vol] NINF [facility] Platelet mean volume (Bld) [Entitic vol] 10.6 fL 9.0 - 12.7 fL [facility] Platelets (Bld) [#/Vol] 261 10*3/uL [facility] RBC (Bld) [#/Vol] 4.34 10*6/uL 3.90 - 5.2 0 m/uL [facility] WBC (Bld) [#/Vol] 8.81 10*3/uL [facility] Erythrocyte distribution width (RBC) [Ratio] 12.4 % Normal 11.5-15.0 [facility] Comment on above: Order Comment: Speci men Type: BLOOD SPECIMEN [facility] Facility[facility] Address: [address] [place] [address] Performed By: #### 5 8410-2 #### [facility] CLIA [id number] [place] Hematocrit (Bld) [Volume fraction] 40.6 % Normal 36.0-46.0 [facility] Comment on above: Order Comment: Speci men Type: BLOOD SPECIMEN [facility] Facility: [facility] Address: [address] [place] [address] Performed By: #### 5 8410-2 #### [facility] CLIA [id number] [address] [place] [address] [place] Hemoglobin (Bld) [Mass/Vol] 13.5 g/dL Normal 11.5-15.5 [facility] Comment on above: Order Comment: Speci men Type: BLOOD SPECIMEN [facility] Facility: [facility] Address: [address] [place] [address] Performed By: #### 5 8410-2 #### [facility] CLIA [id number] [address] [place], [place] [id number] [place] [address] [place] MCH (RBC) [Entitic mass] 31.1 pg Normal 26.0-34.0 [facility] Comment on above: Order Comment: Speci men Type: BLOOD SPECIMEN [facility] Facility: [facility] Address: [address] [place] [address] Performed By: #### 5 8410-2 #### [facility] [place] [id number] [place] [address] [place] MCHC (RBC) [Mass/Vol] 33.3 g/dL Normal 30.5-36.0 [facility] Comment on above: Order Comment: Speci men Type: BLOOD SPECIMEN [facility] Address: [address] [place] [address] Performed By: #### 5 8410-2 #### [facility] [place] [id number] [address] [place] [address] OF [facility] MCV (RBC) [Entitic vol] 93.5 fL Normal 80.0-100.0 [facility] Comment on above: Order Comment: Speci men Type: BLOOD SPECIMEN [facility] Facility: [facility] Address: [address] [place] [address] Performed By: #### 5 8410-2 #### [facility] [place] [id number] [place] [address] [place] Nucleated RBC (Bld) [#/Vol] 10*3/uL Normal <0.01 [facility] Comment on above: Order Comment: Speci men Type: BLOOD SPECIMEN [facility] Facility: [facility] Address: [address] [place] [address] Performed By: #### 5 8410-2 #### [facility] [place] [id number] [place] [address] [place] Platelet mean volume (Bld) [Entitic vol] 10.6 fL Normal 9.0-12.7 [facility] Comment on above: Order Comment: Speci men Type: BLOOD SPECIMEN [facility] Facility: [facility] Address: [address] [place] [address] Performed By: #### 5 8410-2 #### [facility] CLIA [id number] [address] [place], [place] [id number] [place] [address] OF [facility] Platelets (Bld) [#/Vol] 261 10*3/uL Normal 150-400 [facility] Comment on above: Order Comment: Speci men Type: BLOOD SPECIMEN [facility] Facility: [facility] Address: [address] [place] [address] Performed By: #### 5 8410-2 #### [facility] CLIA [id number] OF [facility] RBC (Bld) [#/Vol] 4.34 10*6/uL Normal 3.90-5.20 [facility] Comment on above: Order Comment: Speci men Type: BLOOD SPECIMEN [facility] Address: [address] [place] [address] Performed By: #### 5 8410-2 #### [facility] [place] [id number] [address] [place] WBC (Bld) [#/Vol] 8.81 10*3/uL Normal 3.70-11.00 [facility] Comment on above: Order Comment: Speci men Type: BLOOD SPECIMEN [facility] Address: [address] [place] [address] Performed By: #### 5 8410-2 #### [facility] IA [id number] [address] [place] [address] [facility] CNN[facility]SE Nurse Visit (REKAYEV) LISSA [id number]) 1995 F Date Time Provider Department 02/23/24 [...] Modules accepted: Orders Referring Provider: ORTEGA MORRISSEY [[id number]] Allergies As of Date: 02/23/2024 (No Known Allergies) Date Reviewed: 02/23/2024 Reviewed by: Paula Hester RN - Fully Assessed Reason for Visit: Infertility [285] Visit Diagnosis:Female infertility [N97.9] Order(s):FOLLICULAR US [facility] [[id number]] Order #: [id number]. #:[id number] EWPOINTQty: 1 FOLLICULAR US [facility] [[id number]] Order #: [id number]: 1 FUTURE Prescriptions as of 02/23/2024 - [...] Status:Closed by VANESSA VO on 02/23/24 Normal [facility] Cobalamin (Vitamin B12) [Mas s/Vol]on 02-23-2024 Interpretation and review of laboratory results Normal [facility] Comprehensive metabolic 2000 panelon 02-23-2024 Albumin [Mass/Vol] 4.5 g/dL 3.9 - 4.9 g/dL [facility] ALP [Catalytic activity/Vol] 65 U/L 34 - 123 U/L [facility] ALT [Catalytic activity/Vol] 41 U/L High 7 - 38 U/L [facility] Anion gap [Moles/Vol] 12 mmol/L 8 - 15 mmol/L [facility] AST [Catalytic activity/Vol] 21 U/L 13 - 35 U/L [facility] Bilirubin [Mass/Vol] 0.2 mg/dL 0.2 - 1 .3 mg/dL [facility] Calcium [Mass/Vol] 9.3 mg/dL 8.5 - 10. 2 mg/dL [facility] Chloride [Moles/Vol] 105 mmol/L 98 - 10 7 mmol/L [facility] CO2 [Moles/Vol] 24 mmol/L 22 - 30 mmol/L [facility] Creatinine [Mass/Vol] 0.78 mg/dL 0.58 - 0.96 mg/dL [facility] GFR/1.73 sq M.predicted among non-blacks MDRD (S/P/Bld) [Vol rate/Area] 106 mL/min/{1.73_m2} - PINF [facility] Comment on above: Estimated Glomerular [...] [Mass/Vol] 98 mg/dL 74 - 99 mg/dL [facility] Comment on above: The [place] Diab[employer] s Association (ADA) provides guidance for [...] Standards of Medical Care in Diabetes 2016, [place] [employer]. Diabetes Care. 2016.39(Suppl 1). Interpretation and review of laboratory results Abnormal [facility] Potassium [Moles/Vol] 4.3 mmol/L 3.7 - 5.1 mmol/L [facility] Protein [Mass/Vol] 7.3 g/dL 6.3 - 8.0 g/dL [facility] Sodium [Moles/Vol] 141 mmol/L 136 - 144 mmol/L [facility] Urea nitrogen [Mass/Vol] 11 mg/dL 7 - 21 mg/d L [facility] Albumin [Mass/Vol] 4.5 g/dL Normal 3.9-4.9 [facility] Comment on above: Order Comment: Speci men Type: BLOOD SPECIMEN [facility] Address: [address] [place] [address] Performed By: #### 2 4323-8 #### [facility] CLIA [id number] [address] [place] [address] [place] ALP [Catalytic activity/Vol] 65 U/L Normal 34-123 [facility] Comment on above: Order Comment: Speci men Type: BLOOD SPECIMEN [facility] Address: [address] [place] [address] Performed By: #### 2 4323-8 #### [facility] CLIA [id number] [address] [place] [address] [place] ALT [Catalytic activity/Vol] 41 U/L High 7-38 [facility] Comment on above: Order Comment: Speci men Type: BLOOD SPECIMEN [facility] Facility: [facility] Address: [address] [place] [address] Performed By: #### 2 4323-8 #### [facility] CLIA [id number] [address] [place] [address] [place] Anion gap [Moles/Vol] 12 mmol/L Normal 8-15 [facility] Comment on above: Order Comment: Speci men Type: BLOOD SPECIMEN [facility] Facility: [facility] Address: [address] [place] [address] Performed By: #### 2 4323-8 #### [facility] CLIA [id number] [address] [place] [address] [place] AST [Catalytic activity/Vol] 21 U/L Normal 13-35 [facility] Comment on above: Order Comment: Speci men Type: BLOOD SPECIMEN [facility] Address: [address] [place] [address] Performed By: #### 2 4323-8 #### [facility] CLIA [id number] [address] [place] [address] [place] Bilirubin [Mass/Vol] 0.2 mg/dL Normal 0.2-1.3 [facility] Comment on above: Order Comment: Speci men Type: BLOOD SPECIMEN [facility] Facility: [facility] Address: [address] [place] [address] Performed By: #### 2 4323-8 #### [facility] IA [id number] [address] [place] [address] [place] Calcium [Mass/Vol] 9.3 mg/dL Normal 8.5-10.2 [facility] Comment on above: Order Comment: Speci men Type: BLOOD SPECIMEN Ordering Facility: [facility] Address: [address] [place] [address] Performed By: #### 2 4323-8 #### [facility] IA [id number] [address] [place] [address] [place] Chloride [Moles/Vol] 105 mmol/L Normal 98-107 [facility] Comment on above: Order Comment: Speci men Type: BLOOD SPECIMEN Ordering Facility: [facility] Address: [address] [place] [address] Performed By: #### 2 4323-8 #### [facility] IA [id number] [address] [place] [address] [place] CO2 [Moles/Vol] 24 mmol/L Normal 22-30 [facility] Comment on above: Order Comment: Speci men Type: BLOOD SPECIMEN Ordering Facility: [facility] Address: [address] [place] [address] Performed By: #### 2 4323-8 #### [facility] CLIA [id number] [address] [place] [address] [place] Creatinine [Mass/Vol] 0.78 mg/dL Normal 0.58-0.96 [facility] Comment on above: Order Comment: Jarek leger Type: BLOOD SPECIMEN Ordering Facility: [facility] Address: [address] [place] [address] Performed By: #### 2 4323-8 #### [facility] CLIA [id number] [address] [place] [address] [place] Creatinine and Glomerular filtration rate.predicted panel (S/P/Bld) 106 mL/min/1.73m??? Normal >=60 [facility] Comment on above: Order Comment: Jarek leger Type: BLOOD SPECIMEN Ordering Facility: [facility] Address: [address] [place] [address] Result Comment: Estefanía mated Glomerular Filtration Rate [...] GFR. Performed By: #### 2 4323-8 #### [facility] CLIA [id number] [address] [place] [address] [place] Glucose [Mass/Vol] 98 mg/dL Normal 74-99 [facility] Comment on above: Order Comment: Jarek leger Type: BLOOD SPECIMEN Ordering Facility: [facility] Address: [address] [place] [address] Result Comment: The [place] Diabetes Association (ADA) provides guidance for cutoff [...] Standards of Medical Care in Diabetes 2016, [place] Diabetes Association. Diabetes Care. 2016.39(Suppl 1). Performed By: #### 2 4323-8 #### [facility] IA [id number] [address] [place] [address] [place] Potassium [Moles/Vol] 4.3 mmol/L Normal 3.7-5.1 [facility] Comment on above: Order Comment: Speci men Type: BLOOD SPECIMEN Ordering Facility: [facility] Address: [address] [place] [address] Performed By: #### 2 4323-8 #### [facility] IA [id number] [address] [place] [address] [place] Protein [Mass/Vol] 7.3 g/dL Normal 6.3-8.0 [facility] Comment on above: Order Comment: Speci men Type: BLOOD SPECIMEN Ordering Facility: [facility] Address: [address] [place] [address] Performed By: #### 2 4323-8 #### [facility] IA [id number] [address] [place] [address] [place] Sodium [Moles/Vol] 141 mmol/L Normal 136-144 [facility] Comment on above: Order Comment: Harmonyi men Type: BLOOD SPECIMEN Ordering Facility: [facility] Address: [address] [place] [address] Performed By: #### 2 4323-8 #### [facility] IA [id number] [address] [place] [address] [place] Urea nitrogen [Mass/Vol] 11 mg/dL Normal 7-21 [facility] Comment on above: Order Comment: Speci men Type: BLOOD SPECIMEN Ordering Facility: [facility] Address: [address] [place] [address] Performed By: #### 2 4323-8 #### [facility] IA [id number] [address] [place], [place] [address] [address] [place] Follicle Diameter USon [...] Read By: Vanessa Vo M.D. MATERNAL MEDICINE [facility] Radiology Study observation (narrative) [facility] HbA1c (Bld)on 02-23-2024 Average glucose Estimated from glycated hemoglobin (Bld) [Mass/Vol] 111 mg/dL [facility] Comment on above: eAG: (Estimated aver age glucose) is a calculated value from HgbA1c and is new accounts representative of the average blood glucose level in the last 2-3 month period. HbA1c (Bld) [Mass fraction] 5.5 % 4.3 - 5.6 % [facility] Comment on above: [place] Diabetes As sociation guidelines indicate that patients with HgbA1c in the range 5.7-6.4% are at increased risk for development of diabetes, and intervention by lifestyle modification may be beneficial. HgbA1c greater or equal to 6.5% is considered diagnostic of diabetes. [facility] Average glucose Estimated from glycated hemoglobin (Bld) [Mass/Vol] 111 mg/dL Normal [facility] Comment on above: Order Comment: Jarek leger Type: BLOOD SPECIMEN Ordering Facility: [facility] Address: [address] [place] [address] Result Comment: eAG: (Estimated average glucose) is a calculated value from HgbA1c and is new accounts representative of the average blood glucose level in the last 2-3 month period. Performed By: #### 5 5454-3 #### [facility] CLIA [id number] [address] [place] [address] [place] HbA1c (Bld) [Mass fraction] 5.5 % Normal 4.3-5.6 [facility] Comment on above: Order Comment: Jarek leger Type: BLOOD SPECIMEN Ordering Facility: [facility] Address: [address] [place] [address] Result Comment: Amer ican Diabetes Association guidelines indicate that patients with HgbA1c in the range 5.7-6.4% are at increased risk for development of diabetes, and intervention by lifestyle modification may be beneficial. HgbA1c greater or equal to 6.5% is considered diagnostic of diabetes. Performed By: #### 5 5454-3 #### [facility] CLIA [id number] [address] [place] [address] [place] VITAMIN B12on 02-23-2024 Cobalamin (Vitamin B12) [Mass/Vol] 567 pg/mL 232 - 1245 pg/mL [facility] VITAMIN D 25 HYDROXYon 02-22 25-hydroxyvitamin D3 [Mass/Vol] 49.3 ng/mL 31.0 - 80.0 ng/mL [facility] Comment on above: Classification of 25 [place] Vitamin D status: Deficiency/Insufficiency: < or = 30 ng/ml. Sufficiency/Optimal Levels: 31-80 ng/mL Toxicity: > 100 ng/mL. Test performed by chemiluminescent immunoassay. Vit B12 [facility]24 Cobalamin (Vitamin B12) [Mass/Vol] 567 pg/mL Normal 232-1245 [facility] Comment on above: Order Comment: Speci men Type: BLOOD SPECIMEN Ordering Facility: [facility] Address: [address] [place] [address] Performed By: #### 2 132-9 #### [facility] CLIA [id number] [address] [facility] [address] [facility] Alexandra 02-21-2024 LAURA Telephone (REIBD) LISSA RIVAS ([id number]) 1995 F Date Time Provider Department 02/21/24 [...] Encounter Status:Closed by ORTEGA MORRISSEY on 02/21/24 [facility] [id number] 02-17-2024 HNO ID: [id number] Author: FEDE HAIRSTON MD Service: ? Author [...] visit. Either the patient or their legal new accounts representative has been informed of the risks and benefits of -- and alternatives to -- treatment through a remote evaluation and consents to proceed with the evaluation remotely. I spent a total of 30 minutes on the date of the service which included preparing to see the patient, paux-di-ysnp patient care, counseling and educating the patient/family/caregiv er, ordering medications, tests, or procedures, communicating results to the patient/family/caregiv er, and care coordination (not separately reported). Kim Khan MD [facility] APTIMA MULTITEST VAGINALon 1 04-17-2023 [facility] No Panel Informationon 02-15 APTIMA BACTERIAL VAGINOSIS Not detected [facility] APTIMA SHANTA GLABRATA Not detected [facility] APTIMA CHLAMYDIA TRACHOMATIS 5 ppm [facility] APTIMA CHLAMYDIA TRACHOMATIS Not detected ppm [facility] CNPNon 02-15-2024 CNPN Telephone (REIBD) LISSA RIVAS ([id number]) 1995 F Date Time Provider Department 02/15/24 FEDE HAIRSTON During your visit today, we recorded the following information about you: PamarlenAyanna Alvarado 02/15/2024 11:37 AM Signed Patient states this [...] cycle day 3-7Disp: 10 tabletRfl: 2 [facility] [[id number]] Order #: [id number]: 1 FUTURE Prescriptions as of 02/15/2024 - [...] Status:Closed by ORTEGA MORRISSEY on 02/15/24 Normal [facility] POCT trichomonas manually re frankie 02-15-2024 Bacterial vaginosis and vaginitis DNA panel [...] rocha is working with reproductive specialist at [facility] and needs MRI done within the next 13 days. If [facility] not able to accommodate her, anywhere that is able to schedule within that timeframe would be fine. Alexandra 01-14-2024 LAURA Telephone (REIBD) LISSA RIVAS ([id number]) 1995 F Date Time Provider Department 01/14/24 ORTEGA MORRISSEY REIBAlyce During your visit today, we recorded the following information about you: Keren Carcamo 01/14/2024 9:04 AM Signed Pt started cycle 01/12 and would like to discuss plan for scheduling iui Ortega Morrissey APRN.SR. DIRECTOR 01/14/2024 4:18 PM Signed Spoke with Lissa, She is planning to use OPK only this cycle. Jeferson call with [facility]. Ortega Morrissey APRN.SR. DIRECTOR January 14, 2024 4:17 PM Allergies As of Date: 01/14/2024 (No Known Allergies) Date Reviewed: 11/22/2023 Reviewed by: Ortega Morrissey APRN.SR. DIRECTOR - Fully Assessed Reason for Visit: iui [...] Encounter Status:Closed by ORTEGA MORRISSEY on 01/14/24 [facility] CNOVon 12-31-2023 CNOV Office Visit (REIAV) LISSA RIVAS ([id number]) 1995 F Date Time Provider Department 12/31/23 10:00 AM ORTEGA MORRISSEY During your visit today, we recorded the following information about you: Last Period 12/12/23 Domenica Coon MA 12/31/2023 10:07 AM Signed Pattern Hand offered: Patient declines. Ortega Morrissey APRN.CNP 12/31/2023 [...] Cycle Day: 20 Last menstrual period: 12/12/2023 [place] Protocol: UNIVERSAL PROTOCOL / SAFETY CHECKLIST Procedure [...] Date Reviewed: 11/22/2023 Reviewed by: Ortega Morrissey APRN.SR. DIRECTOR - Fully Assessed Reason for Visit: IUI [...] 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] 08/17/2023 Visit Notes: >> Domenica Coon MA WedDec 31, 2023 10:07 AM Status: Signed Pattern Hand offered: Patient declines. Encounter Status:Closed by ORTEGA MORRISSEY on [facility]31/23 [facility] Nurse Visit (ASHLYNV) LISSA RIVAS ([id number]) 1995 F Date Time Provider Department 12/21/23 [...] plan provided to patient via a Fertility waitangi tribunal member. MD Darrell Branch Laura, RN 12/21/2023 2:32 PM Signed pt using LH surge strips and will call to irvin Grewal RN December 21, 2023 2:32 PM Referring Provider: ORTEGA MORRISSEY [[id number]] Allergies As of Date: 12/21/2023 (No Known Allergies) Date Reviewed: 11/22/2023 Reviewed by: Ortega Morrissey APRN.SR. DIRECTOR - Fully Assessed Visit Diagnosis:Female infertility [N97.9] Order(s):FOLLICULAR US [facility] [[id number]] Order #: [id number]. #:[id number] EWPOINTQty: 1 Prescriptions as of 12/21/2023 - progesterone [...] Status:Closed by ROBIN GREWAL on 12/21/23 Normal [facility] Follicle Diameter USon 12-20 Indication MIdcycle, [...] free fluid visualized Performed By: Cornelia Macario; [facility] Read By: Fede Hairston M.D. MATERNAL MEDICINE [facility] Radiology Study observation (narrative) Theresa Morris 12-13-2023 LAURA Telephone (REIBD) LISSA RIVAS ([id number]) 1995 F Date Time Provider Department 12/13/23 FEDE HAIRSTON During your visit today, we recorded the following information about you: Ortega Morrissey APRN.CNP 12/13/2023 4:49 PM Signed LMP 12/11 Plan: Let 5mg, trigger, IUI#2 Flowsheet/episode created Ortega Morrissey APRN.CNP December 13, 2023 4:42 PM Please schedule the patient for the following- Location: [place] Provider: Nurse Visit type: Midcycle Reason for [...] Primary Visit Diagnosis:Female infertility [N97.9] Order(s):FOLLICULAR US [facility] [[id number]] Order #: [id number]: 1 FUTURE Choriogonadotropin Pam,HumRec (OVIDREL) 250 mcg/0.5 [...] Encounter Status:Closed by ORTEGA MORRISSEY on 12/13/23 [facility] CNOVon 11-28-2023 CNOV Office Visit (REIBD) LISSA RIVAS ([id number]) 1995 F Date Time Provider Department 11/28/23 [...] Cycle Day: 13 Last menstrual period: 11/12/2023 [place] Protocol: UNIVERSAL PROTOCOL / SAFETY CHECKLIST Procedure [...] # 44.8 million Referring Provider: DESHAWN RIOJAS [[id number]] Allergies As of Date: 11/28/2023 (No Known Allergies) Date Reviewed: 11/22/2023 Reviewed by: Ortega Morrissey APRN.SR. DIRECTOR - Fully Assessed Primary Visit Diagnosis:Female infertility [...] Encounter Status:Closed by DESHAWN RIOJAS on 11/28/23 [facility] CNNURSEon 11-22-2023 CNNURSE Nurse Visit (LOUISIAV) LISSA RIVAS ([id number]) 1995 F Date Time Provider Department 11/22/23 7:15 AM NURSE GAYATHRI [facility] GRETA TOMLINSON During your visit today, [...] called patient. She will drive back to [place] now to get done. Erma Donis RN November 22, 2023 8:45 AM 11/22/2023 11 trigger 25+<10mm 21.2, 25+<10mm 5.6mm tri p4=0.3 lh=5.1 JR 11/23/2023 12 11/24/2023 13 IUI RN called patient, name and verified. Plan given for midcycle per physician, see flowsheet for details. Mytrust message sent. Medications reviewed and verified, instructions given. Patient denies any questions or concerns. Erma Donis RN November 22, 2023 12:53 PM Referring Provider: ORTEGA MORRISSEY [[id number]] Allergies As of Date: 11/22/2023 (No Known Allergies) Date Reviewed: 11/22/2023 Reviewed by: Ortega Morrissey APRN.SR. DIRECTOR - Fully Assessed Visit Diagnosis:Female infertility [N97.9] Order(s):FOLLICULAR US [facility] [[id number]] Order #: [id number]. #:[id number] EWPOINTQty: 1 PROGESTERONE [SQPROG] Order #: [id number] FUTURE LUTEINIZING HORMONE [SQLH] Order #: [id number] FUTURE Prescriptions as of 11/22/2023 - progesterone [...] Status:Closed by JAILENE HOWARD on 11/22/23 Normal [facility] Follicle Diameter USon 11-21 Indication Follicle [...] free fluid visualized Performed By: Cornelia Macario; [facility] Read By: Jailene Howard M.D. MATERNAL MEDICINE [facility] Radiology Study observation (narrative) [facility] LH SerPl-aCncon 11-22-2023 Lutropin Qn 5.1 m[IU]/mL Normal See comment [facility] Comment on above: Order Comment: Speci men Type: BLOOD SPECIMEN Ordering Facility: [facility] Address: [address] [place] [address] Result Comment: Refe rence range: Follicular: 2.4-12.6 mIU/mL Midcycle: 14.0-95.6 mIU/mL Luteal: 1.0-11.4 mIU/mL Post Kelsey: 7.7-58.5 mIU/mL Performed By: #### 2 839-9, 42887-7 #### [facility] CLIA [id number] [facility] OF [facility] LUTEINIZING HORMONEon 2023 Lutropin Qn 5.1 m[IU]/mL See comment mIU/mL [facility] Comment on above: Reference range: Follicular: 2.4-12.6 mIU/mL Midcycle: 14.0-95.6 mIU/mL Luteal: 1.0-11.4 mIU/mL Post Avella: 7.7-58.5 mIU/mL No Panel Informationon 11-21 [facility] PROGESTERONEon 11-22-2023 Progesterone [Mass/Vol] 0.3 ng/mL See comment [facility] Comment on above: Menstrual Cycle Prog esterone Reference Ranges: Follicular: <1.0 ng/mL Ovulation: <12.1 ng/mL Luteal: 1.8 to 23.9 ng/mL. Progesterone Reference Ranges vary by gestational period: First Trimester: 11.0 to 44.3 ng/mL Second Trimester: 25.4 to 83.3 ng/mL Third Trimester: 58.7 to 214 ng/mL Post menopausal Progesterone: <0.5 ng/mL Reference: 1. Progesterone (Progesterone III) [package insert V 1.0 Wolof]. [employer], [place], [place]. December 2014. Progest SerPl-mCncon 024 Progesterone [Mass/Vol] 0.3 ng/mL Normal See comment [facility] Comment on above: Order Comment: Speci men Type: BLOOD SPECIMEN Ordering Facility: [facility] Address: [address] [place] [address] Result Comment: Mens trual Cycle Progesterone Reference Ranges: Follicular: <1.0 ng/mL Ovulation: <12.1 ng/mL Luteal: 1.8 to 23.9 ng/mL. Progesterone Reference Ranges vary by gestational period: First Trimester: 11.0 to 44.3 ng/mL Second Trimester: 25.4 to 83.3 ng/mL Third Trimester: 58.7 to 214 ng/mL Post menopausal Progesterone: <0.5 ng/mL Reference: 1. Progesterone (Progesterone III) [package insert V 1.0 Wolof]. [facility] [place] December 2014. Performed By: #### 2 839-9, 09168-8 #### [facility] CLIA [id number] [address] [facility] [address] [place] Alexandra 11-12-2023 JORDANN Telephone (REIBD) LISSA RIVAS ([id number]) 1995 F Date Time Provider Department 11/12/23 [...] schedule the patient for the following- Location: [place] Provider: Nurse Visit type: Follicular scan Reason for visit/appointment notes: Follicular scan Date: 11/21 Time (requested): 714 If slot is full, please schedule the closest open slot. Call to patient needed: no Allergies As of Date: 11/12/2023 (No Known Allergies) Date Reviewed: 08/18/2023 Reviewed by: Domenica Coon MA - Fully Assessed Reason for Visit: iui 10/25 , cd 1 11/11 [Other] Primary Visit Diagnosis:Procreation management investigation and testing [Z31.49] Other Visit Diagnosis:Female infertility [N97.9] Order(s):FOLLICULAR US [facility] [[id number]] Order #: [id number]: 1 FUTURE Prescriptions as of 11/15/2023 - [...] Encounter Status:Closed by ORTEGA MORRISSEY on 11/15/23 [facility] CNOVon 10-26-2023 CNOV Office Visit (REIAV) LISSA RIVAS ([id number]) 1995 F Date Time Provider Department 10/26/23 [...] Cycle Day: 15 Last menstrual period: 10/12/2023 [place] Protocol: UNIVERSAL PROTOCOL / SAFETY CHECKLIST Procedure [...] TIME: 11:36 AM Referring Provider: ORTEGA MORRISSEY [[id number]] Allergies As of Date: 10/26/2023 (No Known Allergies) Date Reviewed: 08/18/2023 Reviewed by: Domenica Coon MA - Fully Assessed Primary Visit Diagnosis:Encounter [...] Encounter Status:Closed by ORTEGA MORRISSEY on 10/26/23 [facility] Nurse Visit (REIAV) LISSA RIVAS ([id number]) 1995 F Date Time Provider Department 10/22/23 7:00 AM NURSE GAYATHRI [facility] REJ REKAYEV During your visit today, we recorded the following information about you: Erma Donis RN 10/22/2023 1:41 PM Signed Lissa Rivas is here today for a midcycle scan. Lead follicle: 14 Erma Donis RN October 22, 2023 7:25 AM RN called patient, name and verified. Plan given for midcycle per physician, see flowsheet for details. Mytrust message sent. Medications reviewed and verified, instructions [...] Trevizo MD, FLACO Referring Provider: ORTEGA MORRISSEY [[id number]] Allergies As of Date: 10/22/2023 (No Known Allergies) Date Reviewed: 08/18/2023 Reviewed by: Domenica Coon MA - Fully Assessed Visit Diagnosis:Female infertility [N97.9] Order(s):FOLLICULAR US [facility] [[id number]] Order #: [id number]. #:[id number] EWPOINTQty: 1 Prescriptions as of 10/22/2023 - medroxyPROGESTERone [...] Status:Closed by ERMA DONIS on 10/22/23 Normal [facility] Follicle Diameter USon 10-21 Indication Baseline [...] Read By: Ayanna Trevizo MD MATERNAL MEDICINE [facility] Radiology Study observation (narrative) Theresa torres [facility] 10-20-2023 CNPN Telephone (REIBD) LISSA RIVAS ([id number]) 1995 F Date Time Provider Department 10/20/23 SELF REIBD During your visit today, we recorded the following information about you: Keren Carcamo 10/20/2023 2:26 PM Signed Pts pharmacy called and would like to know when she needs to order trigger shot Ani Stovall APRN.CNP 10/20/2023 3:11 PM Signed patient instructed to order trigger now so that she has it by Wednesday Ani Stovall APRN.SR. DIRECTOR October 20, 2023 3:10 PM Allergies As of Date: 10/20/2023 (No Known Allergies) Date Reviewed: 08/18/2023 Reviewed by: Domenica Coon MA - Fully Assessed Reason for Visit: [...] Encounter Status:Closed by ANI STOVALL on 10/20/23 [facility] 10-12-2023 CNPN Telephone (REIBD) LISSA RIVAS ([id number]) 1995 F Date Time Provider Department 10/12/23 [...] schedule the patient for the following- Location: [place] Provider: nurse Visit type: mid cycle Reason [...] Known Allergies) Date Reviewed: 08/18/2023 Reviewed by: Domenica Coon MA - Fully Assessed Reason for Visit: Ortega lmp today/re us day 11-13 for iui [Other] Primary Visit Diagnosis:Procreation management investigation and testing [Z31.49] Order(s):Choriogonadot ropin Pam,HumRec (OVIDREL) 250 mcg/0.5 mL syrgInject 250 [...] Status:Closed by ORTEGA MORRISSEY on 10/12/23 Normal [facility] No Panel Informationon 08-16 Interpretation and review of laboratory results Normal [facility] T4 FREE/FREE THYROXINEon Free T4 [Mass/Vol] 1.1 ng/dL 0.9 - 1.7 ng/dL [facility] THYROID PEROXIDASE ANTIBODYo n 08-17-2023 Interpretation and review of laboratory results Normal [facility] TPO Ab Qn 3.3 [IU]/mL [facility] Comment on above: Thyroid Peroxidase A ntibody test is used as an aid in diagnosis of autoimmune thyroid disease. Clinical correlation is required. [facility] THYROID STIMULATING HORMONEo n 08-17-2023 TSH Qn 2.690 m[IU]/L [facility] Comment on above: If the patient is pr egnant, TSH reference range varies by gestational period: First Trimester (weeks 9-12): 0.180-2.990 mIU/L Second Trimester: 0.110-3.980 mIU/L Third Trimester: 0.480-4.710 mIU/L Hang Ribeiro et al. A Practical Approach for the Verifications and Determination of Site- and Trimester-Specific Reference Intervals for Thyroid Function tests in . Thyroid, 2019:29:3:412-420. Samuel E, et al. 2017 Guidelines of the [place] Thyroid Association for the Diagnosis and Management of Thyroid Disease during and the . Thyroid, 2017:27:3:315-389. HCG QUAL UR B/Oon 07-29-2023 Interpretation and review of laboratory results Normal [facility] status Negative neg - pos Theresa torres [facility] Quality Check Yes yes/no [facility] XR HYSTEROSALPINGOGRAMon XR HYSTEROSALPINGOGRAM * * *Final [...] or left fallopian tube. IMPRESSION: Normal hysterosalpingogram. Resident [facility] Transcribe Date/Time: Aug 02 2023 4:22P Dictated by : ADRIANNA BAUMANN MD This examination was interpreted and the report reviewed and electronically signed by: ADRIANNA BAUMANN MD on Aug 02 2023 4:23PM EST [id number] [facility] Alexandra 06-10-2023 LAURA Telephone ([facility]) IANNELLO,LISSA ([id number]) 1995 F Date Time Provider Department 06/10/23 MARIANNEELSA Pérez NYDIA During your visit today, we recorded the following information about you: Elsa Puentes BRIANArlin 06/14/2023 1:38 PM Addendum Patient name and was confirmed at initiation of discussion. 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 SDHA Hereditary Paraganglioma- Pheochromocytoma syndrome Mutations [...] sometimes be malignant. Some individuals with hereditary paraganglioma-pheochro mocytoma syndrome may never develop a PCC or [...] population without disease (benign polymorphism). Please see [employer] message for further discussion. CHRISTIE Magdaleno Licensed, Certified Genetic Counselor Elsa Puentes LGC 06/14/2023 1:42 PM Signed Patient had questions about impact of testing on their fertility treatments. Discussed the following information after discussing with Sania Davalos CGC. It is a low risk she'd [...] for children. Elsa (more content not included)... [facility] Alexandra 04-23-2023 CNPN Telephone ([facility]) LISSA RIVAS ([id number]) 1995 F Date Time Provider Department 04/23/[address] [facility] During your visit today, we recorded the following information about you: Elsa Puentes [facility] 05/17/2023 11:29 AM Signed Called patient to [...] NTHL1, PALB2, PDGFRA, PMS2, POLD1, POLE, POT1, WFQTA1Z, PTCH1, PTEN, RAD51C, RAD51D, RB1, RET, SDHA, SDHAF2, SDHB, SDHC, SDHD, SMAD4, SMARCA4, SMARCB1, SMARCE1, STK11, SUFU, VBIY367, TP53, TSC1, TSC2, and VHL The Multi-Cancer [...] READY TO MOVE FORWARD. Elsa Puentes MS, [facility] Licensed, Certified Genetic Counselor Elsa Puentes LGC 05/17/2023 11:29 AM Signed Spoke to Thao again, confirmed name/. Reviewed information regarding genetic testing. After our discussion, patient provided informed consent for SELF PAY Integrated [facility]AC[facility] with myRisk and SDHA single site mutation analysis. Order placed today. [employer] said the following about the SDHA variant: This SDHA variant would be outside of our reportable range, as we unfortunately do not offer CNV analysis of SDHA at this time. Please let me know if you have any additional questions. Discussed with patient they they cannot detect the familial mutation. 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 The patient was offered SDHA single site mutation analysis through [employer] or self pay Integrated BRACAnalysis with myRisk and SDHA single site mutation analysis through [employer]. After considering the risks, benefits, and limitations, the patient chose to pursue and provided informed consent for the following testing: SELF PAY Integrated [facility]ACAnalysis with myRisk and SDHA single site mutation analysis through [employer]. The myRisk panel includes APC, MICHAEL, AXIN2, [...] to the presenting phenotype. We discussed that [employer] may contact the patient by text or phone call regarding billing. The patient should watch for this communication and respond promptly. The patient should contact [employer] directly with any billing questions (ph. [phone]). Elsa Puentes MS, [facility] Licensed, Certified Genetic Counselor Allergies As of Date: 04/23/2023 (No Known Allergies) Date Reviewed: 01/04/2023 Reviewed by: Domenica Coon Ma - Fully Assessed Reason for Visit: Follow Up [171] Primary Visit Diagnosis:Family history of cancer [Z80.9] Other Visit Diagnosis:Family history of gene mutation [Z84.81] Order(s):[facility] S[facility] OUT TST 1 [SQMISC1] Order #: [id number] FUTURE Prescriptions as of 05/17/2023 - letrozole [...] 04/23/2023 No (more content not included)... Normal [facility] US WHIon 02-08-2023 [facility] Vital Signs Date Time Vital Sign Value Performing Clinician Facility 09-13-2024 11:47-0400 Body mass index (BMI) [Ratio] 39.59 kg/m2 [place] Work Phone: [facility] 09-13-2024 11:47-0400 Body weight 101.38 kg [place] Work Phone: [facility] 09-13-2024 11:47-0400 Diastolic blood pressure 82 mm[Hg] Saravanan Zita DO Work Phone: [facility] 09-13-2024 11:47-0400 Systolic blood pressure 126 mm[Hg] Saravanan Zita DO Work Phone: [facility] 09-12-2024 10:39-0400 Diastolic blood pressure 87 mm[Hg] Ruthann Lavoy PA-C Work Phone: [facility] 09-12-2024 10:39-0400 Systolic blood pressure 130 mm[Hg] Ruthann Lavoy PA-C Work Phone: [facility] 09-12-2024 10:08-0400 Body height 160 cm Ruthann Lavoy PA-C Work Phone: [facility] 09-12-2024 10:08-0400 Body mass index (BMI) [Ratio] 39.57 kg/m2 Ruthann Lavoy PA-C Work Phone: [facility] 09-12-2024 10:08-0400 Body weight 101.33 kg Ruthann Lavoy PA-C Work Phone: [facility] 08-31-2024 15:22-0400 Body height 160 cm Cristiana Zuñiga RN Work Phone: [facility] 08-31-2024 15:22-0400 Body mass index (BMI) [Ratio] 39.5 kg/m2 Cristiana Zuñiga RN Work Phone: [facility] 08-31-2024 15:22-0400 Body weight 101.15 kg Cristiana Yogesh RN Work Phone: [facility] 08-30-2024 11:46-0400 Body mass index (BMI) [Ratio] 39.4 kg/m2 Saravanan Zita DO Work Phone: [facility] 08-30-2024 11:46-0400 Body weight 100.88 kg Saravanan Zita DO Work Phone: [facility] 08-30-2024 11:46-0400 Diastolic blood pressure 76 mm[Hg] Saravanan Zita DO Work Phone: [facility] 08-30-2024 11:46-0400 Systolic blood pressure 116 mm[Hg] Saravanan Zita DO Work Phone: [facility] 08-16-2024 08:38-0400 Body mass index (BMI) [Ratio] 40.08 kg/m2 Rupal Patel PA Work Phone: [facility] 08-16-2024 08:38-0400 Body weight 102.63 kg Rupal Manchester PA Work Phone: [facility] 08-16-2024 08:38-0400 Diastolic blood pressure 80 mm[Hg] Rupal Patel PA Work Phone: [facility] 08-16-2024 08:38-0400 Systolic blood pressure 114 mm[Hg] Rupal Manchester PA Work Phone: [facility] 07-18-2024 09:20-0400 Body height 160 cm Lito Velazquez MD Work Phone: [facility] 07-18-2024 09:20-0400 Body mass index (BMI) [Ratio] 40.03 kg/m2 Lito Velazquez MD Work Phone: [facility] 07-18-2024 09:20-0400 Body weight 102.51 kg Lito Velazquez MD Work Phone: [facility] 07-18-2024 09:20-0400 Diastolic blood pressure 78 mm[Hg] Lito Velazquez MD Work Phone: [facility] 07-18-2024 09:20-0400 Heart rate 90 /min Lito Velazquez MD Work Phone: [facility] 07-18-2024 09:20-0400 SaO2% (BldA) [Mass fraction] 98 % Lito Velazquez MD Work Phone: [facility] 07-18-2024 09:20-0400 Systolic blood pressure 128 mm[Hg] Lito Velazquez MD Work Phone: [facility] 05-23-2024 16:00-0500 Body height 160 cm Andrew Nabil DPM Work Phone: [facility] 05-23-2024 16:00-0500 Body mass index (BMI) [Ratio] 38.83 kg/m2 Andrew Nabil DPM Work Phone: [facility] 05-23-2024 16:00-0500 Body weight 99.43 kg Andrew Rus DPM Work Phone: [facility] 03-08-2024 10:25-0500 Body height 160 cm Gabriel Roof DO Work Phone: [facility] 03-08-2024 10:25-0500 Body mass index (BMI) [Ratio] 40.03 kg/m2 Gabriel Roof DO Work Phone: [facility] 03-08-2024 10:25-0500 Body temperature 97.39 [degF] Gabriel Roof DO Work Phone: [facility] 03-08-2024 10:25-0500 Body weight 102.51 kg Gabriel Roof DO Work Phone: [facility] 03-08-2024 10:25-0500 Diastolic blood pressure 90 mm[Hg] Gabriel Roof DO Work Phone: [facility] 03-08-2024 10:25-0500 Systolic blood pressure 128 mm[Hg] Gabriel Roof DO Work Phone: [facility] 02-15-2024 15:12-0500 Body height 160 cm Robles Goldsmith DO Work Phone: [facility] 02-15-2024 15:12-0500 Body mass index (BMI) [Ratio] 38.26 kg/m2 Robles Goldsmith DO Work Phone: [facility] 02-15-2024 15:12-0500 Body weight 97.98 kg Robles Goldsmith DO Work Phone: [facility] 02-15-2024 15:12-0500 Diastolic blood pressure 84 mm[Hg] Robles Goldsmith DO Work Phone: [facility] 02-15-2024 15:12-0500 Systolic blood pressure 136 mm[Hg] Robles Goldsmith DO Work Phone: [facility] 08-17-2023 10:02-0400 Body mass index (BMI) [Ratio] 40.65 kg/m2 Mirta Gallagher MD Work Phone: [facility] 08-17-2023 10:02-0400 Body weight 104.1 kg Mirta Gallagher MD Work Phone: [facility] 08-17-2023 10:02-0400 Diastolic blood pressure 79 mm[Hg] Mirta Gallagher MD Work Phone: [facility] 08-17-2023 10:02-0400 Heart rate 73 /min Mirta Gallagher MD Work Phone: [facility] 08-17-2023 10:02-0400 Systolic blood pressure 129 mm[Hg] Mirta Gallagher MD Work Phone: [facility] 06-26-2022 19:10-0400 Body height 157.48 cm Josefina Kay Other [employer] Other 06-26-2022 19:10-0400 Body mass index (BMI) [Ratio] 40.64 kg/m2 Josefina Eliza Other [employer] Other 06-26-2022 19:10-0400 Body weight 100.79 kg Josefina Eliza Other [employer] Other 06-26-2022 19:10-0400 Diastolic blood pressure 87 mm[Hg] Josefina Eliza Other [employer] Other 06-26-2022 19:10-0400 Respiratory rate 18 /min Josefina Eliza Other [employer] Other 06-26-2022 19:10-0400 SaO2% (BldA) [Mass fraction] 98 % Josefina Kay Other [employer] Other 06-26-2022 19:10-0400 Systolic blood pressure 132 mm[Hg] Josefina Kay Other [employer] Other Encounters Encounter Date Encounter Type Care Provider Facility Start: 09-13-2024 End: 09-13-2024 Bamboo flowsheet Saravanan Zita DO Work Phone: [facility] Start: 09-13-2024 End: 09-13-2024 Bamboo flowsheet Saravanan Zita DO Work Phone: [facility] Start: 09-13-2024 End: 09-13-2024 flow sheet Saravanan Zita DO Work Phone: [facility] Comment on above: History of gestation al diabetes (Primary Dx); Third trimester ([facility] 31 weeks gestation of ([facility] Start: 09-12-2024 End: 09-12-2024 Clinisync Result Encounter Saravanan Zita DO Work Phone: [facility] External Department Unsolicited Start: 09-12-2024 End: 09-12-2024 Clinisync Result Encounter Saravanan Zita DO Work Phone: [facility] External Department Unsolicited Start: 09-12-2024 End: 09-12-2024 Documentation procedure Ruthann Miller PA-C Work Phone: [facility] Start: 09-12-2024 End: 09-12-2024 Office outpatient new 45 minutes Ruthann Miller PA-C Work Phone: [facility] Comment on above: Insulin controlled g estational diabetes mellitus (GDM) in third trimester; Abnormal liver enzymes; Abnormal genetic test; Gestational diabetes requiring insulin; Elevated blood pressure affecting , antepartum Start: 09-11-2024 End: 09-11-2024 Telemedicine consultation with patient Mirta Gallagher MD Work Phone: Endocrinology Start: 09-11-2024 End: 09-11-2024 ambulatory Mirta Gallagher MD Work Phone: Endocrinology Comment on above: Monoallelic mutation of SDHA gene (Primary Dx); Gestational diabetes mellitus (GDM) in third trimester, gestational diabetes method of control unspecified (HCC) Start: 09-06-2024 End: 09-06-2024 Orders Only Yesi Meade TRUCK ENGINE TECHNICIAN-CN Work Phone: [facility] Start: 09-05-2024 End: 09-05-2024 Orders Only Jackson Cruz MD Work Phone: [facility] Start: 09-04-2024 End: 09-04-2024 ambulatory MIRTA GALLAGHER Facility:[facility] Start: 08-31-2024 End: 08-31-2024 ambulatory [facility] Comment on above: Gestational diabetes mellitus (GDM) in third trimester, gestational diabetes method of control unspecified (Primary Dx) Start: 08-30-2024 End: 08-30-2024 Bamboo flowsheet Saravanan Zita DO Work Phone: [facility] Start: 08-30-2024 End: 08-30-2024 Bamboo flowsheet Saravanan Zita DO Work Phone: [facility] Start: 08-30-2024 End: 08-30-2024 Chart abstracting Scanning Provider External [facility] Start: 08-30-2024 End: 08-30-2024 ambulatory SARAVANAN ZITA Not Available Start: 08-30-2024 End: 08-30-2024 flow sheet Saravanan Zita DO Work Phone: [facility] Comment on above: 28 weeks gestation o f ; Third trimester ; Gestational diabetes mellitus (GDM), antepartum, gestational diabetes method of control unspecified; Herpes simplex virus type 1 (HSV-1) dermatitis Start: 08-24-2024 End: 08-24-2024 Patient encounter procedure Lito Velazquez MD Work Phone: [facility] Work Phone: Start: 08-24-2024 End: 08-24-2024 ambulatory Lito Velazquez MD Work Phone: [facility] Work Phone: Start: 08-23-2024 End: 08-23-2024 Clinisync [...] of Start: 08-16-2024 End: 08-16-2024 ambulatory RUPAL PATEL Not Available Start: 08-07-2024 End: 08-07-2024 Clinisync Result Encounter Generic External Data Provider [facility] External Department Unsolicited Start: 08-07-2024 End: 08-07-2024 Clinisync Result Encounter Generic External Data Provider [facility] External Department Unsolicited Start: 07-18-2024 End: 07-18-2024 Patient encounter procedure Lito Velazquez MD Work Phone: [facility] Work Phone: Start: 07-18-2024 End: 07-18-2024 Periodic preventive med est patient 18-39 yrs Lito Velazquez MD Work Phone: [facility] Comment on above: Annual physical exam (Primary Dx); Hepatic steatosis; Monoallelic mutation of SDHA gene; Polycystic ovaries; Vitamin D deficiency; Palpitations; Murmur Start: 07-18-2024 End: 07-18-2024 ambulatory LITO VELAZQUEZ Not Available Start: 07-17-2024 End: 07-17-2024 Bamboo flowsheet Saravanan Zita DO Work Phone: [facility] Start: 07-17-2024 End: 07-17-2024 Bamboo flowsheet Saravanan Zita DO Work Phone: [facility] Start: 07-17-2024 End: 07-17-2024 ambulatory SARAVANAN ZITA Not Available Start: 07-17-2024 End: 07-17-2024 flow sheet Saravanan Zita DO Work Phone: [facility] Comment on above: Diabetes [...] 30 minutes Andrew Ferrer DPM Work Phone: [facility] Comment on above: Onychomycosis (Prima ry [...] End: 04-04-2024 Patient encounter procedure Ortega Morrissey APRN.SR. DIRECTOR Work Phone: [facility] Comment on above: Progesterone Questio n Start: 2024 End: 2024 Nursing evaluation of patient and report Us Tech 1 [facility] Rej Work Phone: [facility] Comment on above: Supervision of pregn thor with history of infertility, first trimester Start: 2024 End: 04-04-2024 ambulatory Ortega Morrissey HELEN Work Phone: [facility] Start: 03-27-2024 End: 03-27-2024 flow sheet [facility] Comment on above: GA: 6w1d Start: 03-27-2024 End: 03-27-2024 ambulatory SARAVANAN HARRISONO Not Available Start: 03-17-2024 End: 03-17-2024 ambulatory [facility] Facility:[facility] Start: 03-17-2024 End: 03-17-2024 Patient encounter procedure Ortega Watersamari HELEN Work Phone: [facility] Comment on above: Supervision of pregn thor with history of infertility, first trimester (Primary Dx) Start: 03-17-2024 End: 03-17-2024 Telemedicine consultation with patient Ortega Morrissey APRN.JORDAN Work Phone: [facility] Start: 03-16-2024 End: 03-16-2024 Orders Only Madeleine Orta PA-C Work Phone: [facility] Comment on above: Encounter for pregna ncy test, result positive (Primary Dx) Start: 03-15-2024 End: 03-15-2024 ambulatory [facility] Facility:[facility] Start: 03-13-2024 End: 03-13-2024 ambulatory [facility] Facility:[facility] Start: 03-13-2024 End: 03-13-2024 Telephone encounter Fede Hairston MD Work Phone: [facility] Comment on above: +hpt today/lmp 11/17 skipped treatment this month Start: 03-10-2024 End: 03-10-2024 ambulatory [facility] Facility:[facility] Start: 03-08-2024 End: 03-08-2024 Office outpatient new 45 minutes Gabriel Blackwell DO Work Phone: [facility] Comment on above: Otalgia of both ears (Primary Dx); Temporomandibular joint disorder; Chronic allergic rhinitis; Postnasal drip Start: 03-08-2024 End: 03-08-[address] [facility] Start: 02-28-2024 End: 02-28-2024 Telephone encounter Fede Hairston MD Work Phone: [facility] Comment on above: ortega cueva is not el ared for us should she still have it do Start: 02-23-2024 End: 02-25-2024 E-mail encounter from caregiver Ortega Oh LEWIS.JORDAN Work Phone: [facility] Start: 02-23-2024 End: 02-25-2024 Patient encounter procedure Ortega Morrissey APRN.SR. DIRECTOR Work Phone: [facility] Comment on above: Next steps Start: 02-23-2024 End: 02-23-2024 ambulatory FEDE HAIRSTON Facility:[facility] Start: 02-23-2024 End: 02-23-2024 Nursing evaluation of patient and report Nurse Gayathri [facility] Comment on above: Female infertility Start: 02-21-2024 End: 02-21-2024 Telephone encounter Fede Hairston MD Work Phone: [facility] Comment on above: [facility] Start: 02-17-2024 End: 02-17-2024 ambulatory FEDE HAIRSTON Facility:[facility] Start: 02-17-2024 End: 02-17-2024 Office outpatient visit [...] Start: 01-26-2024 End: 01-31-2024 Refill Ortega Morrissey APRN.SR. DIRECTOR Work Phone: [facility] Comment on above: Refill Request Start: 01-24-2024 End: 01-24-2024 ambulatory LITO VELAZQUEZ Not Available Start: 01-14-2024 End: 01-14-2024 Telephone encounter Ortega Morrissey APRN.CNP Work Phone: [facility] Comment on above: iui plan , cd1 01/12 Start: 01-14-2024 End: 01-17-2024 ambulatory ORTEGA MORRISSEY Facility:[facility] Start: 12-31-2023 End: 12-31-2023 ambulatory ORTEGA MORRISSEY Facility:[facility] Start: 12-31-2023 End: 12-31-2023 Patient encounter procedure Ortega Amyamari SR. DIRECTOR Work Phone: [facility] Comment on above: Encounter for artifi cial insemination (Primary Dx) Start: 12-21-2023 End: 12-21-2023 ambulatory [facility] Facility:[facility] Start: 12-21-2023 End: 12-21-2023 Nursing evaluation of patient and report Fede Hairston MD Work Phone: [facility] Comment on above: Female infertility Start: 12-13-2023 End: 12-13-2023 Telephone encounter Fede Hairston MD Work Phone: [facility] Comment on above: LMP 12/12/23/ set up monitored cycle; Patient Update Start: 11-28-2023 End: 11-28-2023 ambulatory DESHAWN RIOJAS Facility:[facility] Start: 11-28-2023 End: 11-28-2023 Patient encounter procedure Deshawn Riojas MD Work Phone: [facility] Comment on above: Female infertility ( Primary Dx) Start: 11-23-2023 End: 11-23-2023 ambulatory Ortega Morrissey APRN.CNP Work Phone: [facility] Start: 11-23-2023 End: 11-23-2023 Patient encounter procedure Ortega Morrissey APRN.SR. DIRECTOR Work Phone: [facility] Comment on above: IUI Round 2 Start: 11-22-2023 End: 11-22-[facility] Start: 11-22-2023 End: 11-22-2023 Patient encounter procedure Ortega Morrissey APRN.SR. DIRECTOR Work Phone: [facility] Comment on above: Procreation manageme nt investigation and testing (Primary Dx) Start: 11-22-2023 End: 11-22-2023 Telemedicine consultation with patient Ortega Morrissey HELEN Work Phone: [facility] Start: 11-22-2023 End: 11-22-2023 ambulatory JAILENE HOWARD Facility:[facility] Start: 11-22-2023 End: 11-22-2023 ambulatory ORTEGA WATERSVALERIE Facility:[facility] Start: 11-22-2023 End: 11-22-2023 Nursing evaluation of patient and report Nurse Gayathri [facility] [place] [facility] Comment on above: Female infertility Start: 11-18-2023 End: 11-18-2023 ambulatory Ortega Morrissey APRN.CNP Work Phone: [facility] Start: 11-18-2023 End: 11-18-2023 Patient encounter procedure Ortega Morrissey APRN.CNP Work Phone: [facility] Comment on above: IUI Medication quest ion Start: 11-12-2023 End: 11-15-2023 Telephone encounter Self [facility] Comment on above: iui 10/25 , cd 1 11/11 Start: 10-26-2023 End: 10-26-2023 ambulatory Ortega Morrissey APRN.CNP Work Phone: [facility] Start: 10-26-2023 End: 10-26-2023 Patient encounter procedure Ortega Morrissey APRN.CNP Work Phone: [facility] Comment on above: Encounter for artifi cial insemination (Primary Dx) Progesterone Questio n Start: 10-22-2023 End: 10-22-2023 Nursing evaluation of patient and report Nurse Gayathri [facility] [place] Comment on above: Female infertility Start: 10-22-2023 End: 10-22-2023 ambulatory ORTEGA AMYVALERIE Facility:[facility] Start: 10-20-2023 Telephone encounter Self [facility] Comment on above: trigger shot Start: 10-12-2023 Telephone encounter Fede Hairston MD Work Phone: [facility] Comment on above: Ortega clements/re us day 11-13 for iui Start: 09-10-2023 End: 09-10-2023 Patient encounter procedure Ortega Morrissey APRN.CNM Work Phone: [facility] Comment on above: Screen for sexually transmitted diseases (Primary Dx); Secondary amenorrhea; Female infertility Start: 09-10-2023 End: 09-10-2023 Telemedicine consultation with patient Ortega Oh SHRESTHA Work Phone: [facility] Start: 09-08-2023 Telephone encounter Fede Hairston MD Work Phone: [facility] Comment on above: Patient Question Start: 09-02-2023 Telephone encounter Fede Hairston MD Work Phone: [facility] Comment on above: lmp 07/23 no cycle si nce then Start: 08-19-2023 End: 08-19-2023 Patient encounter procedure Fede Hairston MD Work Phone: [facility] Comment on above: Irregular menstrual cycle (Primary Dx); PCOS (polycystic ovarian syndrome) Start: 08-19-2023 End: 08-19-2023 Telemedicine consultation with patient Fede Hairston MD Work Phone: [facility] Start: 08-17-2023 End: 08-17-2023 Patient encounter procedure Mirta Gallagher MD Work Phone: Endocrinology Comment on above: Monoallelic mutation of SDHA gene (Primary Dx); Obesity, Class III, BMI 40-49.9 (morbid obesity) (HCC) Monoallelic mutation of SDHA gene (Primary Dx) Start: 07-29-2023 E-mail encounter fro m caregiver Fede Hairston MD Work Phone: [facility] Start: 07-29-2023 Patient encounter procedure Fede Hairston MD Work Phone: [facility] Comment on above: Instructions for janette maria t [place] Start: 07-29-2023 ambulatory FEDE HAIRSTON Facility:[facility] Start: 07-29-2023 End: 07-29-2023 Subsequent hospital visit by physician tammi [facility] Comment on above: Fertility testing [Z 31.41] Start: 07-29-2023 End: 07-29-2023 Nursing evaluation of patient and report Nurse Gayathri [facility] Comment on above: Encounter for fertil ity testing (Primary Dx); Pre-procedure lab exam Start: 07-29-2023 End: 07-29-2023 Patient encounter status Nurse Gayathri [facility] Start: 06-16-2023 Telephone encounter Fina Gupta beto [facility] Work Phone: Genetic Healthcare Comment on above: Geographic Area Intelligence Officer - O ther (Hereditary Paraganglioma- Pheochromocytoma Syndrome clinic) Start: 06-10-2023 Telephone encounter Elsa Tammi agapito [facility] [facility] Work Phone: [facility] Comment on above: Results (Genetic) Start: 05-25-2023 Telephone encounter Fede Hairston MD Work Phone: Reproductive Endocrinology Infertility Comment on above: refill letrozol/cycl e to start in next week Start: 04-23-2023 Telephone encounter Elsa Priest agapito [facility] Work Phone: [facility] Comment on above: Follow Up Start: 04-21-2023 End: 04-21-2023 ambulatory FEDE HAIRSTON Facility:[facility] Start: 04-21-2023 End: 04-21-2023 ambulatory Elsa Puentes [facility] Work Phone: [facility] Comment on above: Family history of br east cancer (Primary Dx); Family history of prostate cancer Start: 04-21-2023 End: 04-21-2023 Telemedicine consultation with patient Elsa Puentes [facility] Work Phone: [facility] Start: 04-07-2023 End: 04-07-2023 ambulatory Fede Hairston MD Work Phone: Reproductive Endocrinology Infertility Comment on above: PCOS (polycystic ova kwadwo syndrome) (Primary Dx); Fertility testing Start: 04-07-2023 End: 04-07-2023 Telemedicine consultation with patient Fede Hairston MD Work Phone: [facility] Start: 02-08-2023 End: 02-08-2023 ambulatory Fede Hairston MD Work Phone: Reproductive Endocrinology Infertility Start: 02-08-2023 End: 02-08-2023 Patient encounter procedure Fede Hairston MD Work Phone: [facility] Start: 02-04-2023 Telephone encounter Fede Hairston MD Work Phone: Reproductive Endocrinology Infertility Comment on above: started letrozole Start: 06-26-2022 End: 06-26-2022 ambulatory Josefina Kay Other [employer] Other Start: 06-26-2022 Office outpatient visit 15 minutes Josefina Kay [facility] Start: 12-05-2019 [facility] encounter procedure [facility] Facility: Procedures Date Procedure Procedure Detail Performing Clinician Start: 09-13-2024 Urnls dip stick/tablet rgnt non-auto w/o micrscp Selina Denson NP Work Phone: Start: 09-12-2024 [facility]H UA (CLEAN/CATCH) FUSING FURNACE LOADER/MICRO IF IND. Saravanan Zita DO Work Phone: Start: 09-05-2024 Follow-up visit Follow Up [facility] Start: 08-31-2024 Glucose quantitative blood xcpt reagent strip Jackson Cruz MD Work Phone: Start: 08-23-2024 GLU 1H POST 50G LOAD Not In System Ref P rov Start: 08-23-2024 ALL CBC WITH AUTO DIFF Saravanan Zita DO Work Phone: Start: 08-16-2024 Urnls dip stick/tablet rgnt non-auto w/o micrscp Rupal THAYER Work Phone: Start: 08-07-2024 US OB INCOMPLETE ANATOMY Generic Externa l Data Provider Start: 07-17-2024 Urnls dip stick/tablet rgnt non-auto w/o micrscp Saravanan Zita DO Work Phone: Start: 06-19-2024 CHLAMYDIA/GC BY PCR PATTI SWAB Not In System Ref Prov Start: 06-19-2024 ULTRASOUND OFFICE Not In System Ref Pr ov Start: 06-19-2024 Microscopic observation [Identifier] in Cervix by Cyto stain Scanning External Start: 05-23-2024 US OB CERVICAL LENGTH Generic External D cecile Provider Start: 05-22-2024 UNLISTED LAB TEST Not In System Ref Pr ov Start: 05-22-2024 Urnls dip stick/tablet rgnt non-auto w/o micrscp Saravanan Zita DO Work Phone: Start: 05-15-2024 Urnls dip stick/tablet rgnt non-auto w/o micrscp Saravanan Zita DO Work Phone: Start: 04-21-2024 BOX TEST Saravanan Zita DO Work Phone: Start: 04-21-2024 Antibody screen Scanning External Start: 04-21-2024 Drug scrn 1+ class nonchromo Not In System Ref Prov Start: 04-21-2024 End: 04-21-2024 Hemoglobin glycosylated a1c Scanning Provider External Start: 04-21-2024 Hepatitis c antibody Not In System Ref P rov Start: 04-21-2024 HIV 1&2 AB/AG SCREEN (P24 AG) Not In System Ref Prov Start: 04-21-2024 Iaad ia hepatitis b surface antigen Not In System Ref Prov Start: 04-21-2024 SYPHILIS TOTAL(UNKNOWN SYPHILIS STATUS) Not In System Ref Prov Start: 04-21-2024 TYPE AND SCREEN Not In System Ref Pr ov Start: 04-21-2024 Urnls dip stick/tablet rgnt non-auto w/o micrscp Saravanan Zita DO Work Phone: Start: 2024 ULTRASOUND OFFICE Not In System Ref Pr ov Start: 2024 Us preg uterus after 1st trimest 1 gestation Ortega Morrissey APRN.SR. DIRECTOR Work Phone: Start: 03-27-2024 Drug scrn 1+ class nonchromo Not In System Ref Prov Start: 02-23-2024 Us pelvic nonobstetric image dcmtn limited/f/u Ortega Mindzora TRUCK ENGINE TECHNICIAN.SR. DIRECTOR Work Phone: Start: 02-15-2024 Smr prim src wet mount nfct agt Robles Goldsmith DO Work Phone: Start: 02-15-2024 APTIMA MULTITEST VAGINAL Robles Morfin r DO Work Phone: Start: 12-21-2023 Us pelvic nonobstetric image dcmtn limited/f/u [place]tega Mindzora TRUCK ENGINE TECHNICIAN.SR. DIRECTOR Work Phone: Start: 11-22-2023 Us pelvic nonobstetric image dcmtn limited/f/u Ortega Mindzora TRUCK ENGINE TECHNICIAN.SR. DIRECTOR Work Phone: Start: 10-22-2023 Us pelvic nonobstetric image dcmtn limited/f/u Ortega Mindzora TRUCK ENGINE TECHNICIAN.SR. DIRECTOR Work Phone: Start: 07-29-2023 Urine test visual color cmprsn meths Ortega Mindzora TRUCK ENGINE TECHNICIAN.CNM Work Phone: Start: 02-08-2023 Us pelvic nonobstetric real-time image complete Fede Hairston MD Work Phone: Plan of Treatment Date Care Activity Detail Author Start: 2070 RSV Vaccine (1 - 1-dose 75+ series) RSV Vaccine (1 - 1-dose 75+ series) [facility] Start: 2045 Zoster Vaccines (1 of 2) Zoster Vaccines (1 of 2) [facility] Start: 06-26-2032 DTaP,Tdap and Td Vaccines (7 - Td or Tdap) DTaP,Tdap and Td Vaccines (7 - Td or Tdap) [facility] Start: 06-26-2032 DTaP/Tdap/Td Vaccines (7 - Td or Tdap) DTaP/Tdap/Td Vaccines (7 - Td or Tdap) [facility] Start: 06-26-2032 Urine microalbumin profile DTaP,Tdap,Td Vaccine (7 - Td or Tdap) [facility] Start: 06-20-2027 Screening for malignant neoplasm of cervix Pap Smear [facility] Start: 09-12-2025 Adult BMI Screening Adult BMI Screening [facility] Start: 09-12-2025 Tobacco Screening Tobacco Screening [facility] Start: 08-31-2025 Adult BMI Screening Adult BMI Screening [facility] Start: 07-24-2025 End: 07-24-2025 Patient encounter procedure [facility] Start: 07-18-2025 End: 10-17-2025 CBC W Auto Differential panel - Blood CBC and differential Lab Routine Annual physical exam Expected: 07/18/2025 (Approximate), Expires: 10/17/2025 [facility] Comment on above: Expected: 07/18/2025 (Approximate), Expi res: 10/17/2025 Start: 07-18-2025 End: 10-17-2025 Comprehensive metabolic 2000 panel - Serum or Plasma Comprehensive metabolic panel Lab Routine Annual physical exam Expected: 07/18/2025 (Approximate), Expires: 10/17/2025 [facility] Comment on above: Expected: 07/18/2025 (Approximate), Expi res: 10/17/2025 Start: 07-18-2025 End: 10-17-2025 Lipid 1996 panel - Serum or Plasma Lipid panel Lab Routine Annual physical exam Expected: 07/18/2025 (Approximate), Expires: 10/17/2025 [facility] Comment on above: Expected: 07/18/2025 (Approximate), Expi res: 10/17/2025 Start: 07-18-2025 End: 10-17-2025 Thyrotropin [Units/volume] in Serum or Plasma TSH Lab Routine Annual physical exam Expected: 07/18/2025 (Approximate), Expires: 10/17/2025 [facility] Comment on above: Expected: 07/18/2025 (Approximate), Expi res: 10/17/2025 Start: 11-27-2024 Influenza vaccination [facility] Start: 10-16-2024 End: 10-16-2024 Patient encounter procedure 10/16/2024 2:00 PM EDT Office Visit Maternal- Medicine at [facility] [address] [place] [address] Vy Pemberton MD [address], [address] [place] [address], [place] [address] [facility] Start: 09-20-2024 End: 09-20-2024 Telemedicine consultation with patient 09/20/2024 11:00 AM EDT Telemedicine Maternal- Medicine at [facility] [address] [place] [address] Siria Rebolledo, TRUCK ENGINE TECHNICIAN-SR. DIRECTOR [address] [facility] [place] [address] [facility] at [facility] Start: 09-13-2024 End: 03-15-2025 US biophysical profile w non stress test US biophysical profile w non stress test Imaging Routine History of gestational diabetes Expected: 09/13/2024 (Approximate), Expires: 03/15/2025 [facility] Work Phone: Comment on above: Expected: 09/13/2024 (Approximate), Expi res: 03/15/2025 Start: 09-13-2024 End: 01-13-2025 US for US OB follow up transabdominal approach Imaging Routine History of gestational diabetes Expected: 09/13/2024, Expires: 01/13/2025 [facility] Comment on above: Expected: 09/13/2024, Expires: Start: 09-13-2024 End: 09-13-2024 Patient encounter procedure 09/13/2024 11:30 AM EDT Routine [facility] [address] [facility] [place] [phone] Saravanan Ahumada DO [address] [place] [address] [facility] Start: 09-11-2024 End: 12-11-2024 METANEPHRINES, FREE PLASMA METANEPHRINES, FREE PLASMA Lab Routine Monoallelic mutation of SDHA gene Expected: 09/11/2024, Expires: 12/11/2024 [facility] Work Phone: Comment on above: Expected: 09/11/2024, Expires: Start: 09-11-2024 End: 09-11-2024 ambulatory 09/11/2024 9:00 AM EDT [facility] [address] [place] [address] Mirta Gallagher MD [address] [place] [address] Monoallelic mutation of SDHA gene Endocrinology Comment on above: Monoallelic mutation of SDHA gene Start: 09-06-2024 End: 09-06-2024 Professional / ancillary services management 09/06/2024 1:30 PM EDT Ancillary Procedure [facility] [address] [place] [address] [facility] Start: 09-05-2024 End: 09-05-2024 ambulatory 09/05/2024 2:00 PM EDT Results Only [place] [address] [address] [place] [address] SDHA [facility] [place] [address] Comment on above: SDHA Start: 09-05-2024 End: 09-05-2024 Patient encounter procedure 09/05/2024 1:45 PM EDT Office Visit [facility] [address] [place] [address] Мария Laboy MD [address] [place] [address] Monoallelic mutation of SDHA gene [facility] Comment on above: Monoallelic mutation of SDHA gene Start: 08-31-2024 End: 08-31-2024 ambulatory 08/31/2024 1:30 PM EDT Support Visit Maternal- Medicine at [facility] [address] [facility] [place] [address] Cristiana Zuñiga, RN [address] [facility], [address] [place] [address], [place] [address] Nereyda Bishop, [place] [address] [facility] [place] [address] [facility] at [facility] Start: 08-30-2024 End: 08-30-2024 Patient encounter procedure 08/30/2024 11:20 AM EDT Routine [facility] [address] [place] [phone] Saravanan Ahumada DO [address] [place] [address] [facility] Start: 08-16-2024 End: 08-16-2024 [...] Polycystic ovaries Expected: 07/18/2024 (Approximate), Expires: 10/17/2024 [facility] Comment on above: Expected: 07/18/2024 (Approximate), Expi res: 10/17/2024 Start: 07-18-2024 End: 10-17-2024 Thyrotropin [Units/volume] in Serum or Plasma TSH Lab Routine Annual physical exam 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 Polycystic ovaries Expected: 07/18/2024 (Approximate), Expires: 10/17/2024 [facility] Comment on above: Expected: 07/18/2024 (Approximate), Expi res: 10/17/2024 Start: 07-18-2024 End: 10-17-2024 US Heart Transthoracic Transthoracic echo (TTE) complete Echocardiography Routine Palpitations Murmur Expected: 07/18/2024 (Approximate), Expires: 10/17/2024 [facility] Comment on above: Expected: 07/18/2024 (Approximate), Expi res: 10/17/2024 Start: 07-18-2024 End: 07-18-2024 Patient encounter procedure 07/18/2024 9:15 AM EDT Office Visit [facility] [address] [place] [address] Lito Velazquez MD [address] [place] [address] [facility] Start: 07-17-2024 End: 07-17-2025 CBC panel - Blood by Automated count CBC Lab Routine Diabetes mellitus screening Expected: 07/17/2024 (Approximate), Expires: 07/17/2025 [facility] Work Phone: Comment on above: Expected: 07/17/2024 (Approximate), Expi res: 07/17/2025 Start: 07-17-2024 End: 07-17-2025 Measurement of glucose 1 hour after glucose challenge for glucose tolerance test Glucose tolerance, 1 hour Lab Routine Diabetes mellitus screening Expected: 07/17/2024 (Approximate), Expires: 07/17/2025 [facility] Comment on above: Expected: 07/17/2024 (Approximate), Expi res: 07/17/2025 Start: 06-19-2024 End: 06-19-2024 Patient encounter procedure [facility] Start: 05-23-2024 End: 05-23-2024 Patient encounter procedure 05/23/2024 4:00 PM EST Office Visit [facility] [address] [place] [address] Andrew Ferrer, DPElisa [address] [place] [address] [facility] Start: 05-22-2024 End: 07-20-2024 Alpha fetoprotein, maternal Alpha fetoprotein, maternal Lab Routine Second trimester 14 weeks gestation of Expected: 05/22/2024 (Approximate), Expires: 07/20/2024 [facility] Work Phone: Comment on above: Expected: 05/22/2024 (Approximate), Expi res: 07/20/2024 Start: 05-22-2024 End: 05-22-2025 US Pelvis transvaginal US OB transvaginal Imaging Routine Spotting in Expected: 05/22/2024, Expires: 05/22/2025 [facility] Comment on above: Expected: 05/22/2024, Expires: Start: 05-22-2024 End: 05-22-2024 Patient encounter procedure [facility] Comment on above: Arrived Start: 05-01-2024 End: 05-01-2024 ambulatory 05/01/2024 3:15 PM EST Initial [facility] [address] [id number] Manju Alford DO [address] [phone] [facility] Start: 04-21-2024 End: 04-21-2025 ABO/Rh ABO/Rh Lab Routine Missed menses , unspecified gestational age Expected: 04/21/2024 (Approximate), Expires: 04/21/2025 [facility] Comment on above: Expected: 04/21/2024 (Approximate), Expi res: 04/21/2025 Start: 04-21-2024 End: 04-21-2025 Blood type and Indirect antibody screen panel - Blood Type and screen Lab Routine Missed menses , unspecified gestational age Expected: 04/21/2024 (Approximate), Expires: 04/21/2025 [facility] Comment on above: Expected: 04/21/2024 (Approximate), Expi res: 04/21/2025 Start: 04-21-2024 End: 04-21-2025 Drugs of abuse panel - Urine by Screen method Rapid drug screen, urine Lab Routine , unspecified gestational age Encounter for supervision of normal first in first trimester Expected: 04/21/2024 (Approximate), Expires: 04/21/2025 [facility] Comment on above: Expected: 04/21/2024 (Approximate), Expi res: 04/21/2025 Start: 04-20-2024 End: 04-20-2025 US Pelvis transvaginal US OB transvaginal Imaging Routine Missed menses Expected: 04/20/2024, Expires: 04/20/2025 [facility] Work Phone: Comment on above: Expected: 04/20/2024, Expires: Start: 04-12-2024 End: 04-12-2024 Professional / ancillary services management 04/12/2024 4:00 PM EST Ancillary Procedure [facility] [address] [phone] [facility] Start: 2024 End: 2024 Nursing evaluation of patient and report 2024 11:10 AM EST Nurse Visit [facility] [address] [place] [address] ob scan [facility] Comment on above: ob scan Start: 03-30-2024 End: 03-30-2024 Patient encounter procedure 03/30/2024 12:40 PM [facility] [address] [place] [address] Cira Garcia V, MD [address] [place] [address] Weight management Endocrinology Comment on above: Weight management Start: 03-27-2024 End: 03-27-2025 Bacteria identified in Urine by Culture Urine culture Microbiology Routine Encounter for supervision of normal first in first trimester Expected: 03/27/2024 (Approximate), Expires: 03/27/2025 [facility] Comment on above: Expected: 03/27/2024 (Approximate), Expi res: 03/27/2025 Start: 03-27-2024 End: 03-27-2025 Blood type and Indirect antibody screen panel - Blood Type and screen Lab Routine Encounter for supervision of normal first in first trimester Expected: 03/27/2024 (Approximate), Expires: 03/27/2025 [facility] Comment on above: Expected: 03/27/2024 (Approximate), Expi res: 03/27/2025 Start: 03-27-2024 End: 03-27-2025 CBC W Auto Differential panel - Blood CBC and differential Lab Routine Encounter for supervision of normal first in first trimester Expected: 03/27/2024 (Approximate), Expires: 03/27/2025 [facility] Comment on above: Expected: 03/27/2024 (Approximate), Expi res: 03/27/2025 Start: 03-27-2024 End: 03-27-2025 DRUG SCREEN 17 W/CONF, UR DRUG SCREEN 17 W/CONF, UR Lab Routine Encounter for supervision of normal first in first trimester Encounter for drug screening Expected: 03/27/2024 (Approximate), Expires: 03/27/2025 [facility] Comment on above: Expected: 03/27/2024 (Approximate), Expi res: 03/27/2025 Start: 03-27-2024 End: 03-27-2025 Hepatitis B virus surface Ag [Presence] in Serum or Plasma by Immunoassay Hepatitis B surface antigen Lab Routine Encounter for supervision of normal first in first trimester Expected: 03/27/2024 (Approximate), Expires: 03/27/2025 [facility] Comment on above: Expected: 03/27/2024 (Approximate), Expi res: 03/27/2025 Start: 03-27-2024 End: 03-27-2025 Hepatitis C virus Ab [Presence] in Serum or Plasma by Immunoassay Hepatitis C antibody Lab Routine Encounter for supervision of normal first in first trimester Expected: 03/27/2024 (Approximate), Expires: 03/27/2025 [facility] Comment on above: Expected: 03/27/2024 (Approximate), Expi res: 03/27/2025 Start: 03-27-2024 End: 03-27-2025 HIV-1/HIV-2 antigen/antibody combination immunoassay HIV-1 and HIV-2 antibodies Lab Routine Encounter for supervision of normal first in first trimester Expected: 03/27/2024 (Approximate), Expires: 03/27/2025 [facility] Comment on above: Expected: 03/27/2024 (Approximate), Expi res: 03/27/2025 Start: 03-27-2024 End: 03-27-2025 Reagin Ab [Presence] in Serum by RPR RPR Lab Routine Encounter for supervision of normal first in first trimester Expected: 03/27/2024 (Approximate), Expires: 03/27/2025 [facility] Comment on above: Expected: 03/27/2024 (Approximate), Expi res: 03/27/2025 Start: 03-27-2024 End: 03-27-2025 Rubella antibody, IgG Rubella antibody, IgG Lab Routine Encounter for supervision of normal first in first trimester Expected: 03/27/2024 (Approximate), Expires: 03/27/2025 [facility] Comment on above: Expected: 03/27/2024 (Approximate), Expi res: 03/27/2025 Start: 03-27-2024 End: 03-27-2025 Urinalysis complete panel - Urine Urinalysis with microscopic Lab Routine Encounter for supervision of normal first in first trimester Expected: 03/27/2024 (Approximate), Expires: 03/27/2025 [facility] Work Phone: Comment on above: Expected: 03/27/2024 (Approximate), Expi res: 03/27/2025 Start: 03-17-2024 End: 03-17-2025 OBSTETRIC ULTRASOUND WHI OBSTETRIC ULTRASOUND WHI Anc Imaging Routine Supervision of with history of infertility, first trimester Expected: 03/17/2024, Expires: 03/17/2025 [facility] Work Phone: Comment on above: Expected: 03/17/2024, Expires: 5 Start: 03-17-2024 End: 03-17-2024 Patient encounter procedure 03/17/2024 2:00 PM EST [facility]ductive Endocrinology Infertility [address] [facility] [place] [address] [place]te[place] Morrissey, TRUCK ENGINE TECHNICIAN.SR. DIRECTOR [address] [facility] [place] [address] new preg [facility]ology Infertility Comment on above: new preg Start: 03-16-2024 End: 06-15-2024 Choriogonadotropin.be ta subunit [Units/volume] in Serum or Plasma HCG QUANTITATIVE Lab Routine Encounter for test, result positive Expected: 03/16/2024, Expires: 06/15/2024 [facility] Work Phone: Comment on above: Expected: 03/16/2024, Expires: 5 Start: 03-15-2024 End: 03-15-2024 Patient encounter procedure 03/15/2024 3:45 PM EST Office Visit [facility] [address] [place] [address] [place] [address] lab [facility] Comment on above: lab Start: 02-28-2024 End: 05-29-2024 Progesterone [Mass/volume] in Serum or Plasma PROGESTERONE Lab Routine Female infertility Expected: 02/28/2024, Expires: 05/29/2024 [facility] Work Phone: Comment on above: Expected: 02/28/2024, Expires: Start: 02-26-2024 End: 02-26-2024 Patient encounter procedure 02/26/2024 6:00 PM EST Office Visit [facility] [address] [place] [address] follicle us -benefit check [facility] Comment on above: follicle us -benefit check Start: 02-23-2024 End: 02-23-2024 Nursing evaluation of patient and report 02/23/2024 7:00 AM EST Nurse Visit [facility] [address] [place] [address] Rej, Nurse Gayathri [facility] [address] [place] [address] midcycle [facility] Infertility Comment on above: midcycle Start: 02-17-2024 End: 02-17-2024 Follow-up encounter 02/17/2024 9:30 AM EST [facility] Rep[facility]ductive Endocrinology Infertility [address] [place] [address] Fede Hairston MD [address] [place] [address] follow up [facility] Infertility Comment on above: follow up Start: 02-15-2024 End: 02-14-2025 FOLLICULAR US WHI FOLLICULAR US WHI Anc Imaging Routine Female infertility Expected: 02/15/2024, Expires: 02/14/2025 [facility] Work Phone: Comment on above: Expected: 02/15/2024, Expires: Start: 01-19-2024 End: 01-19-2024 Patient encounter procedure 01/19/2024 6:00 PM EDT Office Visit [facility] [address] [place] [address] iui-benefit check [facility]ertility Comment on above: iui-benefit check Start: 12-13-2023 End: 12-12-2024 FOLLICULAR US WHI FOLLICULAR US WHI Anc Imaging Routine Female infertility Expected: 12/13/2023, Expires: 12/12/2024 [facility] Work Phone: Comment on above: Expected: 12/13/2023, Expires: Start: 11-28-2023 Covid-19 Vaccine ( season) Covid-19 Vaccine () [facility] Start: 11-28-2023 Covid-19 Vaccine () Covid-19 Vaccine () [facility] Start: 11-28-2023 Influenza vaccination [facility] Start: 11-22-2023 End: 11-22-2023 Nursing evaluation of patient and report 11/22/2023 7:15 AM EDT Nurse Visit [facility]ertility [address] [place] [address] Rej, Nurse Gayathri [facility] [address] [place] [address] Follicular scan [facility] Comment on above: Follicular scan Start: 11-18-2023 End: 11-18-2023 Patient encounter procedure 11/18/2023 6:00 PM EDT Office Visit [facility] [address] [place] [address] midcycle-benefit check [facility] Comment on above: midcycle-benefit check Start: 11-15-2023 End: 11-14-2024 FOLLICULAR US WHI FOLLICULAR US WHI Anc Imaging Routine Female infertility Expected: 11/15/2023, Expires: 11/14/2024 [facility] Work Phone: Comment on above: Expected: 11/15/2023, Expires: Start: 11-04-2023 End: 11-04-2023 Patient encounter procedure Endocrinology Comment on above: MED WT MGMT Start: 10-22-2023 End: 10-22-2023 Nursing evaluation of patient and report 10/22/2023 7:00 AM EDT Nurse Visit [facility]ology [facility]ertility [address] [place] [address] Rej, Nurse Gayathri [facility] [address] [place] [address] midcycle [facility] Endocrinology Infertility Comment on above: midcycle Start: 09-19-2023 End: 12-19-2023 Progesterone [Mass/volume] in Serum or Plasma PROGESTERONE Lab Routine Irregular menstrual cycle Expected: 09/19/2023 (Approximate), Expires: 12/19/2023 [facility] Work Phone: Comment on above: Expected: 09/19/2023 (Approximate), Expi res: 12/19/2023 Start: 09-10-2023 End: 09-10-2023 Patient encounter procedure 09/10/2023 3:00 PM EDT [facility] [address] [place] [address] Ortega Morrissey APRN.CNM [address] [place] [id number] [facility] teach [facility] Comment on above: IUI teach Start: 09-10-2023 End: 12-10-2023 Chlamydia trachomatis+Neisseria gonorrhoeae DNA [Presence] in Unspecified specimen by JANESSA with probe detection GONORRHEA/CHLAMYDIA NAAT Lab Routine Screen for sexually transmitted diseases Expected: 09/10/2023 (Approximate), Expires: 12/10/2023 [facility] Comment on above: Expected: 09/10/2023 (Approximate), Expi res: 12/10/2023 Start: 09-10-2023 End: 12-10-2023 Choriogonadotropin.be ta subunit [Units/volume] in Serum or Plasma HCG QUANTITATIVE Lab Routine Secondary amenorrhea Expected: 09/10/2023, Expires: 12/10/2023 [facility] Comment on above: Expected: 09/10/2023, Expires: Start: 09-10-2023 End: 09-09-2024 FOLLICULAR US WHI FOLLICULAR US WHI Anc Imaging Routine Female infertility Expected: 09/10/2023, Expires: 09/09/2024 [facility] Comment on above: Expected: 09/10/2023, Expires: Start: 09-10-2023 End: 12-10-2023 Hepatitis B virus surface Ag [Presence] in Serum HEPATITIS B SURFACE ANTIGEN Lab Routine Screen for sexually transmitted diseases Expected: 09/10/2023, Expires: 12/10/2023 [facility] Comment on above: Expected: 09/10/2023, Expires: Start: 09-10-2023 End: 12-10-2023 Hepatitis C virus Ab [Presence] in Serum HEPATITIS C ANTIBODY IA WITH CONFIRMATION Lab Routine Screen for sexually transmitted diseases Expected: 09/10/2023, Expires: 12/10/2023 [facility] Comment on above: Expected: 09/10/2023, Expires: Start: 09-10-2023 End: 12-10-2023 HIV 1+2 Ab [Presence] in Serum or Plasma by Immunoassay HIV 1/2 COMBO WITH REFLEX TO DIFFERENTIATION Lab Routine Screen for sexually transmitted diseases Expected: 09/10/2023, Expires: 12/10/2023 [facility] Comment on above: Expected: 09/10/2023, Expires: Start: 09-10-2023 End: 12-10-2023 Progesterone [Mass/volume] in Serum or Plasma PROGESTERONE Lab Routine Secondary amenorrhea Expected: 09/10/2023, Expires: 12/10/2023 [facility] Work Phone: Comment on above: Expected: 09/10/2023, Expires: Start: 09-10-2023 End: 12-10-2023 SYPHILIS TOTAL W/REFLEX SYPHILIS TOTAL W/REFLEX Lab Routine Screen for sexually transmitted diseases Expected: 09/10/2023, Expires: 12/10/2023 [facility] Comment on above: Expected: 09/10/2023, Expires: Start: 09-02-2023 End: 12-02-2023 Choriogonadotropin.be ta subunit [Units/volume] in Serum or Plasma [facility] Comment on above: Expected: 09/02/2023, Expires: Start: 09-02-2023 End: 12-02-2023 Progesterone [Mass/volume] in Serum or Plasma [facility] Work Phone: Comment on above: Expected: 09/02/2023, Expires: Start: 08-19-2023 End: 08-19-2023 Follow-up encounter 08/19/2023 10:30 AM EDT [facility] [address] [place] [address] Fede Hairston MD [address] [place] [address] follow up / rescheduled ok per [facility] Comment on above: follow up / rescheduled ok per [facility] Start: 08-17-2023 End: 08-17-2023 Patient encounter procedure 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 Start: 06-16-2023 End: 09-15-2023 METANEPHRINES, FREE PLASMA METANEPHRINES, FREE PLASMA Lab Routine Monoallelic mutation of SDHA gene Expected: 06/16/2023, Expires: 09/15/2023 [facility] Work Phone: Comment on above: Expected: 06/16/2023, Expires: Start: 06-01-2023 Varicella vaccination Varicella Vaccines (2 of 2 - 2-dose childhood series) [facility] Start: 05-17-2023 End: 08-16-2023 MISC SEND OUT TST 1 MISC SEND OUT TST 1 Lab Routine Family history of cancer Family history of gene mutation Expected: 05/17/2023, Expires: 08/16/2023 [facility] Work Phone: Comment on above: Expected: 05/17/2023, Expires: Start: 04-17-2023 End: 07-17-2023 Progesterone [Mass/volume] in Serum or Plasma PROGESTERONE BLD Lab Routine PCOS (polycystic ovarian syndrome) Expected: 04/17/2023 (Approximate), Expires: 07/17/2023 [facility] Work Phone: Comment on above: Expected: 04/17/2023 (Approximate), Expi res: 07/17/2023 Start: 03-29-2023 Behavioral Health Screening Behavioral Health Screening [facility] Start: 03-29-2023 Depression Assessment Depression Assessment [facility] Start: 02-04-2023 End: 05-06-2023 Progesterone [Mass/volume] in Serum or Plasma PROGESTERONE BLD Lab Routine Encounter for fertility testing Expected: 02/04/2023, Expires: 05/06/2023 [facility] Work Phone: Comment on above: Expected: 02/04/2023, Expires: Start: 11-27-2022 Covid-19 Vaccine () Covid-19 Vaccine () [facility] Start: 11-27-2022 Influenza vaccination Influenza Vaccine (#1) [facility] Start: 03-29-2022 Depression Assessment Depression Assessment [facility] Start: 2016 Pap Testing Pap Testing [facility] Start: 2016 Screening for malignant neoplasm of cervix [facility] Start: 2014 Hepatitis A Vaccines (1 of 2 - Risk 2-dose series) Hepatitis A Vaccines (1 of 2 - Risk 2-dose series) [facility] Start: 2014 Urine microalbumin profile DTaP,Tdap,Td Vaccine (1 - Tdap) [facility] Start: 2013 Adult BMI Follow Up Plan Adult BMI Follow Up Plan [facility] Start: 2013 Adult BMI Screening Adult BMI Screening [facility] Start: 2013 Anxiety Screening Anxiety Screening [facility] Start: 2013 Depression Screening Depression Screening [facility] Start: 2013 Hepatitis C Screening Hepatitis C Screening [facility] Start: 2013 Hepatitis C screening Hepatitis C Screening [facility] Start: 2013 HIV Screening HIV Screening [facility] Start: 2013 HIV screening HIV Screening [facility] Start: 2007 Depression Screening Depression Screening [facility] Start: 2007 Tobacco Screening Tobacco Screening [facility] Start: 1995 Covid-19 Vaccine (#1) Covid-19 Vaccine (#1) [facility] Start: 1995 Hepatitis B Vaccine (1 of 3 - 3-dose series) Hepatitis B Vaccine (1 of 3 - 3-dose series) [facility] Start: 1995 HIV screening HIV Screening [facility] Start: 1995 Lipid panel Lipid Panel [facility] Start: 1995 Yearly Adult Physical Yearly Adult Physical [facility] Bacteria identified in Urine by Culture Urine culture Microbiology Routine Missed menses Ordered: 04/21/2024 [facility] Comment on above: Ordered: 04/21/2024 Bacteria identified in Urine by Culture Urine culture Microbiology Routine Urinary tract infection without hematuria, site unspecified Ordered: 05/15/2024 [facility] Work Phone: Comment on above: Ordered: 05/15/2024 End: 05-17-2024 Cath & saline/contrast sonohyster/hysterosal pi XR HYSTEROSALPINGOGRAM Radiology Routine Fertility testing 1 Occurrences starting 04/18/2023 until 05/17/2024 [facility] Work Phone: Comment on above: 1 Occurrences starting 04/18/2023 until 05/17/2024 End: 09-12-2025 CBC panel - Blood by Automated count CBC without diff Lab Routine Insulin controlled gestational diabetes mellitus (GDM) in third trimester Abnormal liver enzymes Elevated blood pressure affecting , antepartum 1 Occurrences starting 09/12/2024 until 09/12/2025 [email or web address] Comment on above: 1 Occurrences starting 09/12/2024 until 09/12/2025 CBC W Auto Differential panel - Blood CBC and differential Lab Routine Missed menses , unspecified gestational age Ordered: 04/21/2024 [facility] Comment on above: Ordered: 04/21/2024 End: 03-13-2025 Choriogonadotropin.be ta subunit [Units/volume] in Serum or Plasma HCG QUANTITATIVE Lab Routine examination or test, unconfirmed Daily for 2 Occurrences starting 03/13/2024 until 03/13/2025 [facility] Work Phone: Comment on above: Daily for 2 Occurrences starting 024 until 03/13/2025 Choriogonadotropin.b e ta subunit [Units/volume] in Serum or Plasma HCG QUANTITATIVE Lab Routine examination or test, unconfirmed 03/13/2024 3:37 PM [facility] End: 09-12-2025 Comprehensive metabolic 2000 panel - Serum or Plasma Comprehensive metabolic panel Lab Routine Abnormal liver enzymes Abnormal genetic test Gestational diabetes requiring insulin Elevated blood pressure affecting , antepartum 1 Occurrences starting 09/12/2024 until 09/12/2025 [facility] Work Phone: Comment on above: 1 Occurrences starting 09/12/2024 until 09/12/2025 End: 07-15-2024 CT Abdomen W contrast IV CT ABDOMEN W IVCON Radiology Routine Intra-abdominal and pelvic swelling, mass and lump, unspecified site 1 Occurrences starting 06/16/2023 until 07/15/2024 [facility] Work Phone: Comment on above: 1 Occurrences starting 06/16/2023 until 07/15/2024 End: 07-15-2024 CT Chest W contrast IV CT CHEST W IVCON Radiology Routine Localized enlarged lymph nodes 1 Occurrences starting 06/16/2023 until 07/15/2024 [facility] Work Phone: Comment on above: 1 Occurrences starting 06/16/2023 until 07/15/2024 End: 07-15-2024 CT Neck W contrast IV CT NECK SOFT TISSUE W IVCON Radiology Routine Localized enlarged lymph nodes 1 Occurrences starting 06/16/2023 until 07/15/2024 [facility] Work Phone: Comment on above: 1 Occurrences starting 06/16/2023 until 07/15/2024 Hemoglobin A1c/Hemoglobin.total in Blood Hemoglobin A1c Lab Routine Missed menses , unspecified gestational age Ordered: 04/21/2024 [facility] Comment on above: Ordered: 04/21/2024 Hepatitis B virus surface Ag [Presence] in Serum or Plasma by Immunoassay Hepatitis B surface antigen Lab Routine Missed menses , unspecified gestational age Ordered: 04/21/2024 [facility] Comment on above: Ordered: 04/21/2024 Hepatitis C virus Ab [Presence] in Serum or Plasma by Immunoassay Hepatitis C antibody Lab Routine Missed menses , unspecified gestational age Ordered: 04/21/2024 [facility] Comment on above: Ordered: 04/21/2024 HIV-1/HIV-2 antigen/antibody combination immunoassay HIV-1 and HIV-2 antibodies Lab Routine Missed menses , unspecified gestational age Ordered: 04/21/2024 [facility] Comment on above: Ordered: 04/21/2024 IGP,rfxAptima HPV all,16/18,45 IGP,rfxAptima HPV all,16/18,45 Pathology and Cytology Routine Screening for malignant neoplasm of cervix Ordered: 02/15/2024 [facility] Work Phone: Comment on above: Ordered: 02/15/2024 Reagin Ab [Presence] in Serum by RPR RPR Lab Routine Missed menses , unspecified gestational age Ordered: 04/21/2024 [facility] Comment on above: Ordered: 04/21/2024 RF Uterus and Fallopian tubes Views W contrast IU XR HYSTEROSALPINGOGRAM Radiology Routine Fertility testing 07/29/2023 2:03 PM EDT [facility] Work Phone: Rubella antibody, IgG Rubella an tibody, IgG Lab Routine Missed menses , unspecified gestational age Ordered: 04/21/2024 [facility] Comment on above: Ordered: 04/21/2024 End: 09-12-2025 Urine protein creatinine ratio Urine protein creatinine ratio Lab Routine Gestational diabetes requiring insulin Elevated blood pressure affecting , antepartum 1 Occurrences starting 09/12/2024 until 09/12/2025 [facility] Comment on above: 1 Occurrences starting 09/12/2024 until 09/12/2025 End: 03-01-2025 US for US OB follow up transabdominal approach Imaging Routine Gestational diabetes mellitus (GDM), antepartum, gestational diabetes method of control unspecified [id number] for 8 Occurrences starting 08/30/2024 until 03/01/2025 [facility] Work Phone: Comment on above: [id number] for 8 Occurrences starting 08/30 until 03/01/2025 US Pelvis transvaginal US OB transvaginal Imaging Routine Missed menses 04/21/2024 8:47 AM EST [facility] Immunizations Immunization Date Immunization Notes Care Provider Trina oconnell 05-04-2023 measles, mumps and rubella virus vaccine Robles Goldsmith DO Work Phone: [facility] 06-26-2022 tetanus toxoid, reduced diphtheria toxoid, and acellular pertussis vaccine, adsorbed Josefina Eliza Other [employer] Other 08-12-2015 Human Papillomavirus 9-valent vaccine Robles Goldsmith DO Work Phone: [facility] 04-10-2015 Human Papillomavirus 9-valent vaccine Robles Goldsmith DO Work Phone: [facility] 01-30-2015 influenza, seasonal, injectable, preservative free Robles Goldsmith DO Work Phone: [facility] 01-30-2015 influenza virus vaccine, unspecified formulation Fede Hairston MD Work Phone: [facility] 12-05-2014 Human Papillomavirus 9-valent vaccine Robles Goldsmith DO Work Phone: [facility] 02-13-2009 novel [id number], preservative-free, injectable Robles Goldsmith DO Work Phone: [facility] 08-12-2006 meningococcal polysaccharide (groups A, C, Y and W-135) diphtheria toxoid conjugate vaccine (MCV4P) Rboles Goldsmith DO Work Phone: [facility] 08-10-2000 diphtheria, tetanus toxoids and acellular pertussis vaccine, unspecified formulation Robles Goldsmith DO Work Phone: [facility] 08-10-2000 measles, mumps and rubella virus vaccine Robles Goldsmith DO Work Phone: [facility] 08-10-2000 poliovirus vaccine, inactivated Robles Goldsmith DO Work Phone: [facility] 08-04-1996 diphtheria, tetanus toxoids and acellular pertussis vaccine, unspecified formulation Robles Goldsmith DO Work Phone: [facility] 08-04-1996 haemophilus influenzae type b vaccine, conjugate unspecified formulation Robles Pyleer DO Work Phone: [facility] 08-04-1996 varicella virus vaccine Robles Pyleer DO Work Phone: [facility] 04-21-1996 measles, mumps and rubella virus vaccine Robles Pyleer DO Work Phone: [facility] 03-17-1996 diphtheria, tetanus toxoids and acellular pertussis vaccine, unspecified formulation Robles Goldsmith DO Work Phone: [facility] 03-17-1996 haemophilus influenzae type b vaccine, conjugate unspecified formulation Robles Pyleer DO Work Phone: [facility] 03-17-1996 hepatitis B vaccine, pediatric or pediatric/adolescent dosage Robles Pyleer DO Work Phone: [facility] 03-17-1996 trivalent poliovirus vaccine, live, oral Robles Goldsmith DO Work Phone: [facility] 1995 diphtheria, tetanus toxoids and pertussis vaccine Robles Pyleer DO Work Phone: [facility] 1995 haemophilus influenzae type b vaccine, conjugate unspecified formulation Robles Pyleer DO Work Phone: [facility] 1995 hepatitis B vaccine, pediatric or pediatric/adolescent dosage Robles Pyleer DO Work Phone: [facility] 1995 trivalent poliovirus vaccine, live, oral Robles Goldsmith DO Work Phone: [facility] 1995 diphtheria, tetanus toxoids and pertussis vaccine Robles Pyleer DO Work Phone: [facility] 1995 haemophilus influenzae type b vaccine, conjugate unspecified formulation Robles Goldsmith DO Work Phone: [facility] 1995 hepatitis B vaccine, pediatric or pediatric/adolescent dosage Robles Pyleer DO Work Phone: [facility] 1995 trivalent poliovirus vaccine, live, oral Robles Goldsmith DO Work Phone: [facility] Payers Date Payer Category Payer [employer] - POS [id number] 2024 [employer] [facility] - PPO [employer] [id number] 2024 Private Health Insurance [id number] 2024 Unknown [id number] 2021 Private Health Insurance [id number] 2021 Managed Care (Private) [facility] [id number] 2021 Managed Care HMO (unspecified) [id number] 2021 Private Health Insurance [id number] 1995 Unknown [id number] 2.16.840.1.004880.3.579.2 .593 1995 Unknown [id number] 2.16.840.1.554620.3.579.2 .1243 1995 Unknown [id number] 2.16.840.1.018709.3.579.2 .1244 1995 Unknown [id number] 2.16.840.1.692788.3.579.2 .1286 1995 Unknown [id number] 2.16.840.1.289890.3.579.2 .9 1995 Unknown [id number] 2.16.840.1.065636.3.579.2 .9 1995 Unknown [id number] 2.16.840.1.708830.3.579.2 .1258 1995 Unknown [id number] 2.16.840.1.717294.3.579.2 .1258 1995 Unknown [id number] 2.16.840.1.660613.3.579.2 .1258 1995 Unknown [id number] 2.16.840.1.205345.3.579.2 .9 1995 Unknown [id number] 2.16.840.1.451701.3.579.2 .1258 1995 Unknown [id number] 2.16.840.1.690063.3.579.2 .9 1995 Unknown [id number] 2.16.840.1.010155.3.579.2 .1258 1995 Unknown [id number] 2.16.840.1.041016.3.579.2 .9 1995 Unknown [id number] 2.16.840.1.625819.3.579.2 .1258 1995 Unknown [id number] 2.16.840.1.070127.3.579.2 .1258 1995 Unknown [id number] 2.16.840.1.668634.3.579.2 .1258 1995 Unknown [id number] 2.16.840.1.239082.3.579.2 .1259 1995 Unknown [id number] 2.16.840.1.123511.3.579.2 .1259 1995 Unknown [id number] 2.16.840.1.799533.3.579.2 .1259 1959 Self-pay Unknown MMO [id number] Unknown HCAP/HFA/FAP Active [id number] Unknown [id number] [id number] .531 Social History Date Type Detail Facility Unknown if ever smoked [employer] Other Start: 01-04-2023 End: 07-18-2024 Sex Assigned At [employer] Other Start: 10-05-2022 End: 12-29-2022 Tobacco smoking status NHIS Never smoked tobacco [facility] Start: 10-05-2022 End: 12-29-2022 Tobacco use and exposure Smokeless tobacco non-user [facility] Start: 01-04-2023 End: 09-11-2024 Alcohol intake Current drinker of alcohol (finding) [facility] Start: 01-04-2023 End: 07-18-2024 History of Social function [facility] Start: 12-29-2022 Alcohol Comment rare, socially [facility] Start: 1995 [facility] Start: 01-04-2023 Gender identity Identifies as female gender (finding) [facility] National Score (1-100), lower number is lower risk 64 [facility] Start: 02-15-2024 End: 09-12-2024 Alcoholic beverage intake Ex-drinker (finding) [facility] How often to you hav e a drink containing alcohol? Never [facility] Start: 07-13-2023 Alcohol Comment Caffeine intak e: 1 cup per day coffee [facility] Start: 1995 Sex assigned at Not on file [facility] Start: 02-27-2024 End: 03-08-2024 Exposure to SARS-CoV-2 (event) Not sure [facility] Start: 03-27-2024 Alcohol Comment Caffeine intak e:less than 100 mg daily [facility] Start: 02-27-2024 [facility] Start: 05-23-2024 End: 07-18-2024 Alcoholic beverage intake Lifetime non-drinker (finding) [facility] Start: 08-25-2024 End: 08-29-2024 Sex Female (finding) [facility] Medical Equipment Procedure Code Equipment Code Equipment Origin al Text Equipment Identifier Dates To be used to in ject HCG trigger [id number] Start: 02-17-2024 End: 03-17-2024 To be used to mi x, draw up and inject HCG trigger [id number] Start: 02-17-2024 End: 03-17-2024 1 strip by In Vi tro route Daily Use in the morning prior to breakfast, 1 hour after each meal for a total of 4times daily. [id number] Start: 08-25-2024 End: 09-24-2024 1 each by In Vit ro route Daily Use to check FSBS four times daily [id number] Start: 08-25-2024 End: 09-24-2024 Goals Date Patient Goal Desired Activity /State Personal health goal Functional Status Date Assessment Result Facility 07-18-2024 Patient Health Quest ionnaire 2 item (PHQ-2) [Reported] [facility] Clinical Notes 03-29-2020 to 09-13-2024 Selina Denson NP - 09/13/2024 11:30 AM Shannan Miller PA-C - 09/12/2024 4:03 PM Shannan Miller PA-C - 09/12/2024 10:00 AM Benito Tatum CMA - 09/12/2024 10:00 AM EDT Note Date & Type Note Facility 09-13-2024 History of Present illness Narrative Reason for [...] cream Topical, Daily Blood Glucose Monitoring Suppl ([employer] Glucometer) w/Device kit 1 kit, Does not [...] SYSTEMS Review of Systems: Review of Systems OBJECTIVE Objective: OBGyn Exam Vitals: Estimated body mass index is 39.59 kg/m as calculated from the following: Height as of 07/18/24: 5' 3 . Weight as of this encounter: 223 lb 8 oz. BP: 126/82 Patient's last menstrual period was 02/13/2024 (approximate). ASSESSMENT & PLAN ICD-10-CM 1. Third trimester ([facility]) Z34.93 POCT urinalysis dipstick manually resulted 2. 31 weeks gestation of ([facility]) Z3A.31 Return OB: Patient presents today for [...] pm and glucose will be monitored per [facility] Documented by Selina Denson NP on behalf of: Saravanan Ahumada DO documented in this encounter [facility] 09-12-2024 History of Present illness Narrative Called and spoke with patient - she had the recommended pre-e labs done at [facility]. Patient had mild range BP then normal [...] triage near her. She will go to [facility]. I called and spoke with RN in triage - informed that patient had CMP and CBC already drawn, but that urine sample was not taken. Recommend BP monitoring and evaluation of pre-e labs. Contact stated they would inform Dr Ahumada upon arrival of patient to hospital. Ruthann Miller PA-C 09/12/24 [id number] [facility] History of Present illness Narrative Maternal- Medicine Consultation HISTORY OF PRESENT ILLNESS: [...] ever having low HR when vitals have been taken at clinic. Reports having ketones in urine this week. Denies N/V. Fasting BG levels LMP 02/13/2024 PAST OBSTETRICAL HISTORY: OB History 1 Para Term AB Living SAB IAB Ectopic Multiple Live Births SURGICAL HISTORY: Past Surgical History: Procedure Laterality Date EYE SURGERY ALLERGIES: No Known Allergies CURRENT MEDICATIONS: Current Outpatient Medications: fluticasone propionate (FLONASE) 50 mcg/actuation nasal spray, Administer 1 spray into each nostril in the morning., Disp: , Rfl: letrozole (FEMARA) 2.5 mg chemo tablet, Take 1 tablet by mouth daily, Disp: , Rfl: medroxyPROGESTERone (PROVERA) 10 mg tablet, Take 1 tablet (10 mg total) by mouth in the morning., Disp: , Rfl: [id number] acid ( 19) 29 mg iron- 1 [...] abdominal pain, nausea, vomiting, vaginal bleeding, and vaginal discharge PHYSICAL EXAMINATION: Gen: NAD Abdomen: Gravid, non tender, +FHTs DISCUSSION Gestational diabetes is a is a state of carbohydrate intolerance with subsequently insulin resistance and hyperglycemia. This is a malfunction or dysfunction of glucose sensors in the liver with inappropriate release of glucose followed by hyperinsulinemia followed by normal insulin secretion and then relatively deficiency in insulin secretion resulting in [...] more likely to fail compared to insulin. alf data on children whose mothers took oral hypoglycemic agents while is limited. Medication is typically initiated when >20-30% of the blood glucose values in one week are out of range. Risks and side effects of both [...] predictive of increased fat mass in the women s offspring. Increased fat mass has been shown [...] signs/symptoms of hypoglycemia, and examples of treatment of hypoglycemia (15/15 rule). Discussed her current diet and her [...] Delivery recommendations : - Recommend delivery at [id number] - Use 1/2 dose of insulin the [...] values to us weekly by e-mail to: [email or web address] or by fax to: [phone] Ruthann Miller PA-C Maternal- Medicine Office phone: [phone] Ruthann Miller PA-C 09/12/24 1211 Headache/epigastric pain/blurry vision/swelling? Gastric pain and a [...] today? Extremly fatigued. Has to take naps. Patient instructed on insulin administration: when to take prescribed dose in relation to daily schedule, use of the insulin pen, how to give injection into the sub-Q tissue in relation to the gravid abdomen, rotation of injection sites, proper disposal of sharps and symptoms of hypoglycemia. Patient education materials given: insulin action chart, hypoglycemia management, proper disposal of sharps and procedure guide sheet for use of insulin pen. Patient returned demonstration. Questions answered. Encouraged to call office with questions or concerns. documented in this encounter [facility] 09-11-2024 Instructions Mirta Gallagher MD - 09/11/2024 9:21 AM EDT We [...] and imaging from June 23, 2023, showed no evidence of masses or other concerning findings. This year s plasma metanephrines are still pending, and I will contact you via My[employer] once the results are available. - Your [...] Please continue to follow up with your LAB DIRECTOR and the diabetes care team for management. [...] your urine based on recent tests. Your LAB DIRECTOR will likely repeat a urine test at your next visit in 4 weeks. - Your hemoglobin, hematocrit, and red blood cell count were low on recent testing. Please follow up with your LAB DIRECTOR for further evaluation and management. Follow-Up Plan: - Please continue to follow up with your LAB DIRECTOR for routine care and gestational diabetes management. - Once your plasma metanephrines results are available, I will contact you via iPayment. - After your delivery, please message me to schedule imaging and blood work for follow-up on your SDHA mutation. If your blood work is normal, imaging can be deferred until 2025 or 2026. Wishing you a safe and healthy ! documented in this encounter [facility] 09-11-2024 Note HNO ID: [id number] Author: MIRTA GALLAGHER MD Service: ? Author Type: Physician Type: Progress Notes Filed: 09/11/2024 09:23 Note Text: DATE: 09/11/2024 VIRTUAL VISIT PROGRESS NOTE This is a virtual visit using [employer] Video Visit. It required patient-provider interaction for the medical decision making as documented below. I have communicated my name and active licensure. The patient's identity and physical location were verified at the time of this visit. Either the patient or their legal new accounts representative has been informed of the risks and benefits of -- and alternatives to -- treatment through a remote evaluation and consents to proceed with the evaluation remotely. Lissa Rivas is a 29 year old female seen for SDHA mutation. GERARD: 08/17/2023 with me for the same. 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 Thao is currently 28 weeks with a male fetus and has been diagnosed with gestational diabetes mellitus (GDM) approximately 1-2 weeks ago. She is under the care of her LAB DIRECTOR in [place] for GDM management. Despite dietary modifications, she [...] on September 04. Previous plasma metanephrines and normetanephrines tested in May were within normal limits. [...] rash: No Dizziness: No Headaches: No Memory (more content not included)... [facility] 09-11-2024 History of Present illness Narrative DATE: 09/11/2024 VIRTUAL VISIT PROGRESS NOTE This is a virtual visit using [employer] Z[employer] Video Visit. It required patient-provider interaction for the medical decision making as documented below. I have communicated my name and active licensure. The patient's identity and physical location were verified at the time of this visit. Either the patient or their legal new accounts representative has been informed of the risks and benefits of -- and alternatives to -- treatment through a remote evaluation and consents to proceed with the evaluation remotely. Lissa Rivas is a 29 year old female seen for SDHA mutation. GERARD: 08/17/2023 with me for the same. 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 Thao is currently 28 weeks with a male fetus and has been diagnosed with gestational diabetes mellitus (GDM) approximately 1-2 weeks ago. She is under the care of her LAB DIRECTOR in [place] for GDM management. Despite dietary modifications, she [...] on September 04. Previous plasma metanephrines and normetanephrines tested in May were within normal limits. [...] under the care of a specialist in [place] and is no longer taking Metformin since [...] the specialist weekly. - Follow up with LAB DIRECTOR for regular care and monitoring of GDM. TSH was 2.69 prior to conception but TPO Ab were negative. Mirta Gallagher MD, MPH Endocrinology documented in this encounter [facility] 09-05-2024 Miscellaneous Notes Called pt to discuss her blood sugars and that Dr Cruz reviewed her blood sugars and would like her to increase her metformin to 500mg in [...] and not metformin. documented in this encounter [facility] 09-05-2024 Telephone encounter Note Called pt to discuss her blood sugars and that Dr Cruz reviewed her blood sugars and would like her to increase her metformin to 500mg in [...] will probably do insulin and not metformin. [email or web address] 08-31-2024 Group counseling note Patient: Lissa Rivas Date: 08/31/2024 There were no vitals filed for this visit. Patient present for diabetes education group class per doctor order secondary to diagnosis of GDM and/or abnormal glucose tolerance. Food recall suggests patient typically consumes a balanced diet of mainly healthy choices. Lissa has been limiting carbohydrates [...] day food log and blood glucoses to [email or web address] every Wednesday night/Wednesday morning. Please refer to health habits for other goals. Breakfast 10 AM 15-25 grams of CHO, Lunch 2 PM 45 grams of CHO, Snack 4:30 PM 15-30 grams of CHO, Dinner 7 PM 45 grams of CHO, HS Snack 8:30 PM 15-30 grams of CHO. Face to face time was 82 minutes. [email or web address] Work Phone: 08-31-2024 Miscellaneous Notes Patient: Lissa Rivas Date: 08/31/2024 There were no vitals filed for this visit. Patient present for diabetes education group class per doctor order secondary to diagnosis of GDM and/or abnormal glucose tolerance. Food recall suggests patient typically consumes a balanced diet of mainly healthy choices. Lissa has been limiting carbohydrates [...] day food log and blood glucoses to [email or web address] every Wednesday night/Wednesday morning. Please refer to health habits for other goals. Breakfast 10 AM 15-25 grams of CHO, Lunch 2 PM 45 grams of CHO, Snack 4:30 PM 15-30 grams of CHO, Dinner 7 PM 45 grams of CHO, HS Snack 8:30 PM 15-30 grams of CHO. Face to face time was 82 minutes. documented in this encounter [email or web address] 08-30-2024 History of Present illness Narrative Reason for [...] 4times daily. cholecalciferol (Vitamin D-3) 50 MCG (1999 UT) tablet 2 tablets, Daily Glucose Blood (Blood [...] Date Anxiety Asthma LORA (generalized anxiety disorder) ([facility]/HCC) GERD (gastroesophageal reflux disease) Herpes simplex PCOS (polycystic ovarian syndrome) HISTORY PAST MEDICAL HISTORY SOCIAL HISTORY Past Medical History: Diagnosis Date Anxiety Asthma LORA (generalized anxiety disorder) ([facility]) GERD (gastroesophageal reflux disease) Herpes [...] nursing note reviewed. Exam conducted with a distribution operation supervisor present. Vitals: Estimated body mass index is 39.4 kg/m as calculated from the following: Height [...] week for routine OB appointment. Documented by Flip Ashley LPN on behalf of: Saravanan Ahumada DO documented in this encounter [facility] 08-16-2024 History of Present illness Narrative Reason [...] nursing note reviewed. Exam conducted with a distribution operation supervisor present. Vitals: Estimated body mass index is [...] of: FLACA Kovacs documented in this encounter [facility] 07-18-2024 History of Present illness Narrative Images [...] the care of an infertility clinic at [facility], where fertility treatments were conducted for approximately one year before achieving natural conception. 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 Metformin, previously prescribed for polycystic ovary syndrome [...] - No previous EKG performed; Shant of NitroPCR monitor will be ordered -order echo. - If heart rate exceeds 120 beats per minute for an extended period, further investigation will be warranted. Patient was seen and examined with Jaime Davies CNP. History was confirmed and verified. Kelly elements of the exam were also completed. Assessment and plan were reviewed and addended as needed. Agree with documentation above. documented in this encounter [facility] 07-17-2024 History of Present illness Narrative [...] nursing note reviewed. Exam conducted with a distribution operation supervisor present. Vitals: Estimated body mass index is [...] during travel. Patient was prescribed medication from manager union and provider will reach out to patient [...] leaving that lotion that was prescribed by Supervisor [employer] Former is safe to use, but not in large doses. PVU documented in this encounter [facility] 05-23-2024 History of Present illness Narrative Images from the original note were not included. Subjective Patient ID: Lissa Rivas is a 29 y.o. 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 She has tried ngpj-dlq-wfaajmt antifungal treatments without relief. Additionally she has [...] today utilizing a nail Nipper and bur track grinder without incident. She will call us [...] Andrew Ferrer DPM documented in this encounter [facility] 05-22-2024 History of Present illness Narrative [...] nursing note reviewed. Exam conducted with a distribution operation supervisor present. Vitals: Estimated body mass index is [...] or undercooked meat, and stay away from [facility]. Patient has been consulted regarding any [...] Saravanan Ahumada DO documented in this encounter [facility] 05-15-2024 History of Present illness Narrative [...] nursing note reviewed. Exam conducted with a distribution operation supervisor present. Vitals: Estimated body mass index is [...] Rosemary Hooper MA documented in this encounter [facility] 04-21-2024 History of Present illness Narrative [...] Procedure Laterality Date EYE SURGERY 03/2020 PRK- [place] No Known Allergies Vitals: Estimated body mass [...] or undercooked meat, and stay away from [facility]. Patient has also been advised to [...] Rosemary Hooper MA documented in this encounter [facility] 2024 Note HNO ID: [id number] Author: ORTEGA MORRISSEY APRN.SR. DIRECTOR Service: ? Author Type: Nurse Practitioner Type: [...] OB Ortega Morrissey APRN.CNP 2024 4:34 PM [facility] 2024 History of Present illness Narrative [...] 2024 4:34 PM documented in this encounter [facility] 03-27-2024 History of Present illness [...] of orders to take with her to [facility] to have drawn today. Appointments scheduled for OBUS in [place] office on 04/12 and with [facility] on 05/01. 03/27/2024 3:01 PM documented in this encounter [facility] 03-20-2024 Progress note Formatting of t [...] Hysteroscopy Laparoscopy OPK (Ovulation Predictor Kit) [facility] 10.91 High 01/04/2023 Saline Ultrasound Semen [...] visit. Either the patient or their legal new accounts representative has been informed of the risks and benefits of -- and alternatives to -- treatment through a remote evaluation and consents to proceed with the evaluation remotely. I spent a total of 30 minutes on the date of the service which included preparing to see the patient, [id number] patient care, counseling and educating the patient/family/caregiver, ordering medications, tests, or procedures, communicating results to the patient/family/caregiver, and care coordination (not separately reported). MD Kim Branch MD [facility] 03-20-2024 Consult note Formatting of [...] Hysteroscopy Laparoscopy OPK (Ovulation Predictor Kit) [facility] 10.91 High 01/04/2023 Saline Ultrasound Semen [...] visit. Either the patient or their legal new accounts representative has been informed of the risks and benefits of -- and alternatives to -- treatment through a remote evaluation and consents to proceed with the evaluation remotely. I spent a total of 30 minutes on the date of the service which included preparing to see the patient, xjiu-kr-[id number] patient care, counseling and educating the patient/family/caregiver, ordering medications, tests, or procedures, communicating results to the patient/family/caregiver, and care coordination (not separately reported). MD Kim Branch MD documented in this encounter [facility] 03-17-2024 Note HNO ID: [id number] Author: ORTEGA MORRISSEY APRN.SR. DIRECTOR Service: ? Author Type: Nurse Practitioner Type: Progress Notes Filed: 03/17/2024 14:22 Note Text: REPRODUCTIVE ENDOCRINOLOGY AND INFERTILITY New SERVICE DATE: 03/17/2024 SERVICE TIME: 1:56 PM NAME: Lissa Rivas VIRTUAL VISIT PROGRESS NOTE This is a virtual visit. It required patient-provider interaction for the medical decision making as documented below. Patient name and birthday verified: Yes Location of patient: [place] Persons Present: patient I have communicated my name and active licensure. The patient's identity and physical location were verified at the time of this visit. Either the patient or their legal new accounts representative has been informed of the risks [...] 5mg, date of LH surge: LH + , TI Latest Ref Rng 01/04/2023 ABO A [...] OB: Scheduled with local OB Ortega Morrissey APRN.SR. DIRECTOR March 17, 2024 1:56 PM I spent a total of 20 minutes on the date of the service which included preparing to see the patient, vknr-[id number] patient care, completing clinical documentation, obtaining and/or [...] schedule the patient for the following- Location: [facility] Provider: Nurse Visit type: OB scan Reason for visit/appointment notes: OB scan Date: 04/03 Time (requested): 1110 If slot is full, please schedule the closest open slot. Call to patient needed: no [facility] 03-17-2024 History of Present illness Narrative Images from the original note were not included. [facility] ENDOCRINOLOGY AND INFERTILITY New SERVICE DATE: 03/17/2024 SERVICE TIME: 1:56 PM NAME: Lissa Rivas VIRTUAL VISIT PROGRESS NOTE This is a virtual visit. It required patient-provider interaction for the medical decision making as documented below. Patient name and birthday verified: Yes Location of patient: [place] Persons Present: patient I have communicated my name and active licensure. The patient's identity and physical location were verified at the time of this visit. Either the patient or their legal new accounts representative has been informed of the risks [...] which included preparing to see the patient, [id number]-[id number] patient care, completing clinical documentation, obtaining and/or [...] schedule the patient for the following- Location: [facility] Provider: Nurse Visit type: OB scan Reason for visit/appointment notes: OB scan Date: 04/03 Time (requested): 1109 If slot is full, please schedule the closest open slot. Call to patient needed: no documented in this encounter [facility] 03-13-2024 Telephone encounter Note Patient [...] ordered: HCG x2 FYI Dr. Bill Morrissey APRN.SR. DIRECTOR March 13, 2024 1:37 PM [facility] 03-13-2024 Miscellaneous Notes Patient calls with positive [...] ordered: HCG x2 [address] Bill Morrissey APRN.SR. DIRECTOR March 13, 2024 1:37 PM Patient states she skipped this month and has +hpt, please follow up with patient. documented in this encounter [facility] 03-13-2024 Telephone encounter Note Patient states she skipped this month and has +hpt, please follow up with patient. [facility] Work Phone: 03-08-2024 History of [...] Use: Not At Risk (02/15/2024) Received from [facility] AUDIT-C Frequency of Alcohol Consumption: Never [...] and 96% in the left ear. Speech administrative assistant receptionist threshold is 10 dB in the right ear and 5 dB in the left ear. Procedure: [] Gabriel Blackwell DO documented in this encounter [facility] Work Phone: 02-28-2024 Telephone encounter Note Spoke [...] MORRISSEY APRN.CNP February 28, 2024 11:54 AM [facility] 02-28-2024 Miscellaneous Notes Spoke with [...] after she pays documented in this encounter [facility] 02-28-2024 Telephone encounter Note Pt is not financially clear yet should she still schedule it after she pays [facility] 02-23-2024 Note HNO ID: [id number] Author: ORTEGA MORRISSEY APRN.CNP Service: ? Author [...] visit/appointment notes: midcycle Date: 02/24 Time (requested): 07 If slot is full, please schedule the closest open slot. Call to patient needed: no [facility] 02-23-2024 Note HNO ID: [id number] Author: PAULA HESTER RN Service: ? Author [...] Hester RN February 23, 2024 7:46 AM [facility] 02-23-2024 History of Present illness Narrative The patient is here today for follicular ultrasound and blood work. The patient reports no problems or complaints. Ultrasound and blood will be reviewed by the physician, the flow sheet will be updated and instructions will be communicated to the patient. Paula Hester RN February 23, 2024 7:46 AM documented in this encounter [facility] 02-21-2024 Telephone encounter Note Medication send the specialty on 02/17. Ortega Morrissey APRN.CNP February 21, 2024 10:39 AM [facility] 02-21-2024 Miscellaneous Notes Medication send the CS specialty on 02/17. Ortega Morrissey APRN.CNP February 21, 2024 10:39 AM Needs hcg [facility] documented in this encounter [facility] 02-21-2024 Telephone encounter Note Needs hcg [facility] 02-17-2024 Plan of care note [...] visit. Either the patient or their legal new accounts representative has been informed of the risks and benefits of -- and alternatives to -- treatment through a remote evaluation and consents to proceed with the evaluation remotely. I spent a total of 30 minutes on the date of the service which included preparing to see the patient, dxws-wj-wtus patient care, counseling and educating the patient/family/caregiver, ordering medications, tests, or procedures, communicating results to the patient/family/caregiver, and care coordination (not separately reported). Kim Khan MD [facility] 02-17-2024 Miscellaneous Notes Lissa Rivas [...] visit. Either the patient or their legal new accounts representative has been informed of the risks and benefits of -- and alternatives to -- treatment through a remote evaluation and consents to proceed with the evaluation remotely. I spent a total of 30 minutes on the date of the service which included preparing to see the patient, ijgm-fq-utjy patient care, counseling and educating the patient/family/caregiver, ordering medications, tests, or procedures, communicating results to the patient/family/caregiver, and care coordination (not separately reported). Kim Khan MD documented in this encounter [facility] 02-15-2024 History of Present illness Narrative Images from the original note were not included. Robles Goldsmith, DO Obstetrics and Gynecology Lissa Rivas 1995 02/15/24 [id number] Yearly Wellness Exam Chief Complaint Patient presents [...] Lau Past Medical History: Diagnosis Date Asthma ([facility]/HCC) GERD (gastroesophageal reflux disease) PCOS (polycystic ovarian [...] angle tenderness, no obvious scoliosis/kyphosis. 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 She works from home for [employer]. Entered by Adilene Ford MA acting as scribe for Dr. Robles Goldsmith. Signature Adilene Ford MA Date 02/15/24 . Time 3:12 PM . The documentation recorded by the scribe accurately reflects the service(s) I personally performed and the decisions I made. Signature Jordan Goldsmith D.O. Date 02/15/24 Time 5:00PM. documented in this encounter [facility] 02-15-2024 Telephone encounter Note Spoke with Thao, states she was using OPKs last cycle and never got an LH surge. Had two weeks of high fertility but no peak. Cycle was normal length LMP 02/12 Would like to do monitoring/trigger this cycle. Flowsheet/Episode updated. Ortega Morrissey APRN.SR. DIRECTOR February 15, 2024 1:49 PM Please schedule the patient for the following- Location: [facility] Provider: nurse Visit type: midcycle Reason for visit/appointment notes: midcycle Date: 02/22 Time (requested): 0700 If slot is full, please schedule the closest open slot. Call to patient needed: no [facility] 02-15-2024 Miscellaneous Notes Spoke with [...] up with patient. documented in this encounter [facility] 02-15-2024 Telephone encounter Note Patient states this past month in January she did not ovulate so she did not go through with iui, please follow up with patient. [facility] Work Phone: 01-14-2024 Telephone encounter Note Spoke with Lissa, She is planning to use OPK only this cycle. Jeferson call with LH surge. Ortega Morrissey APRN.CNP January 14, 2024 4:17 PM [facility] 01-14-2024 Miscellaneous Notes Spoke with Lissa, She is planning to use OPK only this cycle. Jeferson call with LH surge. Ortega Morrissey APRN.CNP January 14, 2024 4:17 PM Pt started cycle 01/12 and would like to discuss plan for scheduling iui documented in this encounter [facility] 01-14-2024 Telephone encounter Note Pt started cycle 01/12 and would like to discuss plan for scheduling iui [facility] 12-31-2023 Note HNO ID: [id number] Author: ORTEGA MORRISSEY APRN.CNP Service: ? Author [...] Cycle Day: 20 Last menstrual period: 12/12/2023 [place] Protocol: UNIVERSAL PROTOCOL / SAFETY CHECKLIST Procedure [...] 31, 2023 TIME: 10:25 AM [facility] 12-31-2023 Procedure note WHI GAYATHRI IUI PROCEDURE NOTE Date: 12/31/2023 Primary Proceduralist: Ortega Morrissey APRN.CNP Consents and Labels Consent Signed: Informed Consent obtained and on the chart Labels Verified With Patient: Yes Indications: Lissa Rivas, is a 28 year old female here today for intrauterine insemination. IUI # Series 1 Cycle 3. Cycle Day: 20 Last menstrual period: 12/12/2023 [place] Protocol: UNIVERSAL PROTOCOL / SAFETY CHECKLIST Procedure [...] DATE: December 31, 2023 TIME: 10:25 AM [facility] 12-31-2023 Procedure note WHI GAYATHRI IUI PROCEDURE NOTE Date: 12/31/2023 Primary Proceduralist: Ortega Morrissey APRN.CNP Consents and Labels Consent Signed: Informed Consent obtained and on the chart Labels Verified With Patient: Yes Indications: Lissa Rivas, is a 28 year old female here today for intrauterine insemination. IUI # Series 1 Cycle 3. Cycle Day: 20 Last menstrual period: 12/12/2023 [place] Protocol: UNIVERSAL PROTOCOL / SAFETY CHECKLIST Procedure [...] TIME: 10:25 AM documented in this encounter [facility] 12-31-2023 Nurse Note Pattern Hand offered: Patient declines. [facility] 12-31-2023 Nurse Note Pattern Hand offered: Patient declines. documented in this encounter [facility] 12-21-2023 History of Present illness [...] plan provided to patient via a Fertility waitangi tribunal member. Kim Khan MD documented in this encounter [facility] 12-21-2023 Note HNO ID: [id number] Author: ROBIN GREWAL RN Service: ? Author Type: Registered Nurse Type: Progress Notes Filed: 12/21/2023 14:32 Note Text: pt using LH surge strips and will call to irvin Grewal RN December 21, 2023 2:32 PM [facility] 12-21-2023 Note HNO ID: [id number] Author: FEDE HAIRSTON MD Service: ? Author [...] plan provided to patient via a Fertility waitangi tribunal member. Kim Khan MD [facility] 12-13-2023 Telephone encounter Note LMP 12/11 Plan: Let 5mg, trigger, IUI#2 Flowsheet/episode created Ortega Morrissey APRN.CNP December 13, 2023 4:42 PM Please schedule the patient for the following- Location: [place] Provider: Nurse Visit type: Midcycle Reason for visit/appointment notes: Midcycle Date: 12/20 Time (requested): 730 If slot is full, please schedule the closest open slot. Call to patient needed: no [facility] 12-13-2023 Miscellaneous Notes [facility] 12/11 Plan: Let 5mg, trigger, IUI#2 Flowsheet/episode created Ortega Morrissey APRN.CNP December 13, 2023 4:42 PM Please schedule the patient for the following- Location: [place] Provider: Nurse Visit type: Midcycle Reason for visit/appointment notes: Midcycle Date: 12/20 Time (requested): 730 If slot is full, please schedule the closest open slot. Call to patient needed: no documented in this encounter [facility] 11-28-2023 Note HNO ID: [id number] Author: EVANGELINA PAINTER, ? Service: ? Author Type: Security Test Engineer Type: Progress Notes Filed: 11/28/2023 11:00 Note Text: IUI Pre: 72 M/ml, 63% Post: 73 M/ml, 88% Insem # 44.8 million [facility] 11-28-2023 History of Present illness Narrative IUI Pre: 72 M/ml, 63% Post: 73 M/ml, 88% Insem # 44.8 million IUI specimen released to provider Evangelina Painter November 28, 2023 10:48 AM documented in this encounter [facility] 11-28-2023 Note HNO ID: [id number] Author: DESHAWN RIOJAS MD Service: ? Author [...] Cycle Day: 13 Last menstrual period: 11/12/2023 [place] Protocol: UNIVERSAL PROTOCOL / SAFETY CHECKLIST Procedure [...] 28, 2023 TIME: 10:52 AM [facility] 11-28-2023 Procedure note WHI GAYATHRI IUI PROCEDURE NOTE Date: 11/28/2023 Primary Proceduralist: Deshawn Riojas MD, Sandra Cruz MD Consents and Labels Consent Signed: Informed Consent obtained and on the chart Labels Verified With Patient: Yes Indications: Lissa Rivas, is a 28 year old female here today for intrauterine insemination. IUI # . Cycle Day: 13 Last menstrual period: 11/12/2023 [place] Protocol: UNIVERSAL PROTOCOL / SAFETY CHECKLIST Procedure [...] DATE: November 28, 2023 TIME: 10:52 AM [facility] 11-28-2023 Procedure note WHI GAYATHRI IUI PROCEDURE NOTE Date: 11/28/2023 Primary Proceduralist: Deshawn Riojas MD, Sandra Cruz MD Consents and Labels Consent Signed: Informed Consent obtained and on the chart Labels Verified With Patient: Yes Indications: Lissa Rivas, is a 28 year old female here today for intrauterine insemination. IUI # . Cycle Day: 13 Last menstrual period: 11/12/2023 [place] Protocol: UNIVERSAL PROTOCOL / SAFETY CHECKLIST Procedure [...] TIME: 10:52 AM documented in this encounter [facility] 11-28-2023 Note HNO ID: [id number] Author: EVANGELINA PAINTER, ? Service: ? Author Type: Security Test Engineer Type: Progress Notes Filed: 11/28/2023 10:54 Note Text: IUI specimen released to provider Evangelina Painter November 28, 2023 10:48 AM [facility] 11-22-2023 Note HNO ID: [id number] Author: ORTEGA MORRISSEY APRN.CNP Service: ? Author [...] and birthday verified: Yes Location of patient: [place] Persons Present: patient I have communicated my name and active licensure. The patient's identity and physical location were verified at the time of this visit. Either the patient or their legal new accounts representative has been informed of the risks [...] Once starting progesterone had intense mood swings/irritability [place] heart was beating slower than normal but [...] which included preparing to see the patient, wbdq-mk-coho patient care, completing clinical documentation, obtaining and/or [...] grammatical and typographical errors missed in proofreading. [facility] 11-22-2023 History of Present illness Narrative Images from the original note were not included. [facility] ENDOCRINOLOGY AND INFERTILITY VIRTUAL VISIT PROGRESS NOTE SERVICE DATE: 11/22/2023 SERVICE TIME: 2:33 PM NAME: Lissa Rivas VIRTUAL VISIT PROGRESS NOTE This is a virtual visit. It required patient-provider interaction for the medical decision making as documented below. Patient name and birthday verified: Yes Location of patient: [place] Persons Present: patient I have communicated my name and active licensure. The patient's identity and physical location were verified at the time of this visit. Either the patient or their legal new accounts representative has been informed of the risks [...] Once starting progesterone had intense mood swings/irritability [place] heart was beating slower than normal but [...] will schedule IUI as instructed Ortega Morrissey APRN.SR. DIRECTOR November 22, 2023 2:33 PM I spent a total of 20 minutes on the date of the service which included preparing to see the patient, lodi-oq-frcj patient care, completing clinical documentation, obtaining and/or [...] missed in proofreading. documented in this encounter [facility] 11-22-2023 Note HNO ID: [id number] Author: ERMA DONIS RN Service: ? Author [...] called patient. She will drive back to [place] now to get done. Erma Donis RN [...] Donis RN November 22, 2023 12:53 PM [facility] 11-22-2023 History of Present illness Narrative Lissa Rivas is here today for a midcycle scan. Lead follicle: 21mm vs CL Erma Donis RN November 22, 2023 8:44 AM Message sent to Dr. Howard to see if patient needs labs based on scan. Erma Donis RN November 22, 2023 8:09 AM Labs ordered and called patient. She will drive back to [place] now to get done. Erma Donis RN [...] 2023 12:53 PM documented in this encounter [facility] 11-15-2023 Telephone encounter Note Plan: Let 5mg/trigger/IUI #2 Ortega Morrissey APRN.CNP November 15, 2023 9:39 AM Please schedule the patient for the following- Location: [place] Provider: Nurse Visit type: Follicular scan Reason for visit/appointment notes: Follicular scan Date: 11/21 Time (requested): 0715 If slot is full, please schedule the closest open slot. Call to patient needed: no [facility] 11-15-2023 Miscellaneous Notes Plan: Let 5mg/trigger/IUI #2 Ortega Morrissey APRN.CNP November 15, 2023 9:39 AM Please schedule the patient for the following- Location: [place] Provider: Nurse Visit type: Follicular scan Reason [...] started cycle 11/11 documented in this encounter [facility] 11-12-2023 Telephone encounter Note Patient is planning IUI. FYI: DEXTER Mg. Please see the checklist Madeleine Orta PA-C November 12, 2023 6:07 PM [facility] Work Phone: 11-12-2023 Telephone encounter Note Pt had iui 10/25 , pt had negative preg 8/13 or 8/14 , pt started cycle 11/11 [facility] 10-26-2023 Telephone encounter Note This [...] seven days of my reply. See the iPayment message reply for my assessment and plan. I spent a total of 5 minutes reviewing the patient's prior medical records and current request for medical advice, prescribing medications or ordering tests (if applicable), replying to the patient, and documenting the encounter. [facility] 10-26-2023 Miscellaneous Notes This patient [...] seven days of my reply. See the Mytrust message reply for my assessment and plan. I spent a total of 5 minutes reviewing the patient's prior medical records and current request for medical advice, prescribing medications or ordering tests (if applicable), replying to the patient, and documenting the encounter. documented in this encounter [facility] 10-26-2023 Note HNO ID: [id number] Author: ORTEGA MORRISSEY APRN.CNP Service: ? Author [...] Cycle Day: 15 Last menstrual period: 10/12/2023 [place] Protocol: UNIVERSAL PROTOCOL / SAFETY CHECKLIST Procedure [...] 26, 2023 TIME: 11:36 AM [facility] 10-26-2023 Procedure note WHI GAYATHRI IUI PROCEDURE NOTE Date: 10/26/2023 Primary Proceduralist: Ortega Morrissey APRN.CNP Consents and Labels Consent Signed: Informed Consent obtained and on the chart Labels Verified With Patient: Yes Indications: Lissa Rivas, is a 28 year old female here today for intrauterine insemination. IUI # Series 1 Cycle 1. Cycle Day: 15 Last menstrual period: 10/12/2023 [place] Protocol: UNIVERSAL PROTOCOL / SAFETY CHECKLIST Procedure [...] DATE: October 26, 2023 TIME: 11:36 AM [facility] 10-26-2023 Procedure note WHI GAYATHRI IUI PROCEDURE NOTE Date: 10/26/2023 Primary Proceduralist: Ortega Morrissey APRN.CNP Consents and Labels Consent Signed: Informed Consent obtained and on the chart Labels Verified With Patient: Yes Indications: Lissa Rivsa, is a 28 year old female here today for intrauterine insemination. IUI # Series 1 Cycle 1. Cycle Day: 15 Last menstrual period: 10/12/2023 [place] Protocol: UNIVERSAL PROTOCOL / SAFETY CHECKLIST Procedure [...] TIME: 11:36 AM documented in this encounter [facility] 10-22-2023 Note HNO ID: [id number] Author: AYANNA TREVIZO MD Service: ? Author Type: Physician Type: Progress Notes Filed: 10/22/2023 23:02 Note Text: GAYATHRI Attending Physician Note: Ultrasound and lab results reviewed. Based on review of ultrasound and lab results, medication dose and follow up date plans provided. See cycle flowsheet for dosing details. Ayanna Trevizo MD, FLACO [facility] 10-22-2023 Note HNO ID: [id number] Author: ERMA DONIS RN Service: ? Author [...] Donis RN October 22, 2023 1:38 PM [facility] 10-22-2023 History of Present illness Narrative [...] 2023 1:38 PM documented in this encounter [facility] 10-20-2023 Telephone encounter Note patient instructed to order trigger now so that she has it by Wednesday Ani Stovall APRN.CNP October 20, 2023 3:10 PM [facility] 10-20-2023 Miscellaneous Notes patient instructed to order trigger now so that she has it by Wednesday Ani Stovall APRN.CNP October 20, 2023 3:10 PM Pts pharmacy called and would like to know when she needs to order trigger shot documented in this encounter [facility] 10-20-2023 Telephone encounter Note Pts pharmacy called and would like to know when she needs to order trigger shot [facility] 10-12-2023 Telephone encounter Note The following approved medication requests have been transmitted electronically. Requested Prescriptions Signed Prescriptions Disp Refills Choriogonadotropin Pam,HumRec (OVIDREL) 250 mcg/0.5 mL syrg 0.5 mL 1 Sig: Inject 250 mcg subcutaneously one time only for 1 dose. Authorizing Provider: ORTEGA MORRISSEY APRN.CNP October 12, 2023 4:10 PM [facility] 10-12-2023 Miscellaneous Notes The following [...] schedule the patient for the following- Location: [place] Provider: nurse Visit type: mid cycle Reason for visit/appointment notes: mid cycle non ivf Date: 10-22-23 Time (requested): 0700 If slot is full, please schedule the closest open slot. Call to patient needed: no Patient states she also needs information regarding trigger shot. Please call patient. documented in this encounter [facility] 10-12-2023 Telephone encounter Note Called the patient she verified her name and date of period started today has letrozole needs trigger shot Randee Myers RN October 12, 2023 2:30 PM Flowsheet done Please schedule the patient for the following- Location: [place] Provider: nurse Visit type: mid cycle Reason for visit/appointment notes: mid cycle non ivf Date: 10-22-23 Time (requested): 07 If slot is full, please schedule the closest open slot. Call to patient needed: no [facility] 10-12-2023 Telephone encounter Note Patient states she also needs information regarding trigger shot. Please call patient. [facility] Work Phone: 09-10-2023 History of Present illness Narrative Images from the original note were not included. [facility] ENDOCRINOLOGY [facility] INFERTILITY IUI TEACH SERVICE DATE: 09/10/2023 SERVICE TIME: 2:56 PM NAME: Lissa Rivas VIRTUAL VISIT PROGRESS NOTE This is a virtual visit. It required patient-provider interaction for the medical decision making as documented below. Patient name and birthday verified: Yes Location of patient: [place] Persons Present: patient I have communicated my name and active licensure. The patient's identity and physical location were verified at the time of this visit. Either the patient or their legal new accounts representative has been informed of the risks and benefits of -- and alternatives to -- treatment through a remote evaluation and consents to proceed with the evaluation remotely. Reason for visit: IUI Teach [facility] Primary GAYATHRI Physician: Dr. Khan IUI Treatment Plan: Letrozole 5mg/trigger/IUI Partner's name/MRN: Brenton [id number] LMP: 07/23 IUI Checklist: Consultation: Done Registration of patient and partner: Done Financial Clearance: In process IUI Patient Education: ASRM IUI Patient Fact Sheet IUI Consent Form: sent today via People[employer] Orders: filed today Medications ordered today Screening [...] Count Sperm M 592.20 % Motile Sperm (%NV + %DOUBLE BASS PLAYER) >=40 % 64 Forward Progression 4 = [...] which included preparing to see the patient, amab-xd-qpkr patient care, completing clinical documentation, obtaining and/or [...] missed in proofreading. documented in this encounter [facility] 09-09-2023 Telephone encounter Note The following approved medication requests have been transmitted electronically. Requested Prescriptions Signed Prescriptions Disp Refills medroxyPROGESTERone (PROVERA) 10 mg tablet 10 tablet 0 Sig: Take 1 tablet by mouth once daily. Authorizing Provider: ORTEGA MORRISSEY APRN.CNM September 09, 2023 9:07 AM [facility] 09-09-2023 Miscellaneous Notes The following [...] her lab results documented in this encounter [facility] 09-09-2023 Telephone encounter Note Called [...] 0.2 hCG Quantitative, Blood <5.0 mIU/mL <0.6 [facility] 09-08-2023 Telephone encounter Note Iui Patient called in regards to her lab results [facility] 09-02-2023 Telephone encounter Note Returned [...] Mcclellan RN September 02, 2023 1:11 PM [facility] 09-02-2023 Miscellaneous Notes Returned patient [...] up with patient. documented in this encounter [facility] 09-02-2023 Telephone encounter Note Returned [...] Mcclellan RN September 02, 2023 11:41 AM [facility] 09-02-2023 Telephone encounter Note Please follow up with patient. [facility] Work Phone: 08-19-2023 Progress note Formatting of t his note is different from the original. [facility] Date: 08/19/2023 Consultation Requested By: [...] Hysteroscopy Laparoscopy OPK (Ovulation Predictor Kit) [facility] [place] [facility] 10.91 High 01/04/2023 Saline Ultrasound Semen [...] visit. Either the patient or their legal new accounts representative has been informed of the risks and benefits of -- and alternatives to -- treatment through a remote evaluation and consents to proceed with the evaluation remotely. I spent a total of 30 minutes on the date of the service which included preparing to see the patient, imux-tg-fgbz patient care, completing clinical documentation, counseling and educating the patient/family/caregiver, ordering medications, tests, or procedures, communicating results to the patient/family/caregiver, and care coordination (not separately reported). Kim Khan MD [facility] 08-19-2023 Consult note Formatting of th is note is different from the original. [facility] Date: 08/19/2023 Consultation Requested By: [...] Hysteroscopy Laparoscopy OPK (Ovulation Predictor Kit) [facility] [place] [facility] 10.91 High 01/04/2023 Saline Ultrasound Semen [...] visit. Either the patient or their legal new accounts representative has been informed of the risks and benefits of -- and alternatives to -- treatment through a remote evaluation and consents to proceed with the evaluation remotely. I spent a total of 30 minutes on the date of the service which included preparing to see the patient, tepb-xc-lgbw patient care, completing clinical documentation, counseling and educating the patient/family/caregiver, ordering medications, tests, or procedures, communicating results to the patient/family/caregiver, and care coordination (not separately reported). Kim Khan MD documented in this encounter [facility] 08-19-2023 Plan of care note [...] daily Comments: None Kim Khan MD 08/19/2023 [facility] 08-19-2023 Miscellaneous Notes Patient indicated [...] Khan MD 08/19/2023 documented in this encounter [facility] 08-17-2023 History of Present illness Narrative [...] while trying for , who presents to count includes the [facility] care. Her genetic testing indicates she [...] while trying for , who presents to count includes the [facility] care. Her genetic testing indicates she [...] Мария Laboy MD documented in this encounter [facility] 08-17-2023 Nurse Note Tobacco Use: Never Was smoking cessation packet given? N/A - Patient is a non-smoker or quit >1 year ago. Was a referral initiated?N/A Patient is a non-smoker [facility] 08-17-2023 Nurse Note Tobacco Use: Never Was smoking cessation packet given? N/A - Patient is a non-smoker or quit >1 year ago. Was a referral initiated?N/A Patient is a non-smoker documented in this encounter [facility] 08-17-2023 History of Present illness Narrative [...] MD, MPH Endocrinology documented in this encounter [facility] 08-17-2023 Instructions Latosha Wesley MA - 08/17/2023 9:53 AM EDT Thank you for choosing the [facility] Department of Endocrinology, Diabetes and Metabolism. Did you know that you need to call 48 hours in advance of your scheduled visit, if you are unable to make your appointment? The Endocrinology and Metabolism [place] thanks you for your commitment, because patients not showing to their appointment results in a lost opportunity for patients to receive [facility] health care at the [facility]. To Cancel an appointment, please choose one of the following: - Call the Appointment Call Center at [phone] - From iPayment, Go to Appointments - Cancel Appts If cancelling, consider your need to reschedule to prevent further delays in your care. To Schedule an appointment, please choose one of the following: - Call the Appointment Call Center at [phone] - From iPayment, Go to Appointments - Request an Appt documented in this encounter [facility] 07-29-2023 History of Present illness [...] PATIENT PRESENTS WITH AN IMPLANTABLE OR ATTACHED PHARMACY BENEFITS COORDINATOR: No RADIOLOGY DEPARTMENT: General X-ray: Exam(s) Completed: HSG PERIPHERAL IV DATA: Not applicable SIGNED BY: RT Clark(Loc) July 29, 2023 1:58 PM documented in this encounter [facility] 07-29-2023 Note HNO ID: [id number] Author: FLIP NEWMAN RT(Loc) Service: Radiology Author [...] PATIENT PRESENTS WITH AN IMPLANTABLE OR ATTACHED PHARMACY BENEFITS COORDINATOR: No RADIOLOGY DEPARTMENT: General X-ray: Exam(s) Completed: HSG PERIPHERAL IV DATA: Not applicable SIGNED BY: RT Clark(Loc) July 29, 2023 1:58 PM [facility] 07-29-2023 Note HNO ID: [id number] Author: ORTEGA MORRISSEY APRN.CNM Service: ? Author [...] without evidence of loculation. Ortega Morrissey APRN.CNM [facility] 07-29-2023 Procedure note KAREN TRINH HYSTEROSALPINGOGRAM NOTE Date: July 29, 2023 Lissa was seen in Radiology for a Hysterosalpingogram for fertility testing. The procedure including risks, benefits and options was discussed with the patient. There are no contraindications to the procedure. iLssa expressed understanding and agreed to proceed. UNIVERSAL [...] without evidence of loculation. Ortega Morrissey APRN.CNM [facility] 07-29-2023 Procedure note [facility] GAYATHRI HYSTEROSALPINGOGRAM NOTE Date: July 29, 2023 [...] Ortega Morrissey APRN.CNM documented in this encounter [facility] 06-16-2023 Miscellaneous Notes Addended by: МАРИЯ [...] Мария Laboy. Patient will be updated via [employer] when orders are placed for imaging. Fina Davalos MS, [facility] Licensed, Certified Genetic Counselor documented in this encounter [facility] 06-14-2023 Telephone encounter Note Patient had questions about impact of testing on their fertility treatments. Discussed the following information after discussing with Sania Davalos CGC. It is a low risk she'd [...] to try for children. Elsa Puentes MS, [facility] Licensed, Certified Genetic Counselor [facility] Work Phone: 06-14-2023 Miscellaneous Notes Patient had questions about impact of testing on their fertility treatments. Discussed the following information after discussing with Sania Davalos [facility]. It is a low risk she'd have [...] to try for children. Elsa Puentes MS, [facility] Licensed, Certified Genetic Counselor Patient name and was confirmed at initiation of discussion. Lissa Rivas's Integrated BRACAnalysis with Humberto through [employer] was positive for a pathogenic variant in [...] population without disease (benign polymorphism). Please see myChart message for further discussion. CHRISTIE Magdaleno Licensed, Certified Genetic Counselor documented in this encounter [facility] 06-10-2023 Telephone encounter Note Patient name and was confirmed at initiation of discussion. Lissa Rivas's Integrated BRACAnalysis with Humberto through [employer] was positive for a pathogenic variant in [...] population without disease (benign polymorphism). Please see [employer] message for further discussion. CHRISTIE Magdaleno Licensed, Certified Genetic Counselor [facility] 05-25-2023 Miscellaneous Notes The following [...] May 25, 2023 10:06 AM Valentin in [place] is pharmacy. Please follow up with patient. documented in this encounter [facility] 05-17-2023 Miscellaneous Notes Spoke to [...] detect the familial mutation. 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 The patient was offered SDHA single site mutation analysis through [employer] or self pay Integrated BRACAnalysis with [employer] and SDHA single site mutation analysis through [employer]. After considering the risks, benefits, and limitations, the patient chose to pursue and provided informed consent for the following testing: SELF PAY Integrated BRACAnalysis with [employer] and SDHA single site mutation analysis through [employer]. The myRisk panel includes APC, MICHAEL, AXIN2, [...] to the presenting phenotype. We discussed that [employer] may contact the patient by text or phone call regarding billing. The patient should watch for this communication and respond promptly. The patient should contact [employer] directly with any billing questions (ph. [phone]). Elsa Puentes MS, [facility] Licensed, Certified Genetic Counselor Called patient to [...] NTHL1, PALB2, PDGFRA, PMS2, POLD1, POLE, POT1, WUINW8H, PTCH1, PTEN, RAD51C, RAD51D, RB1, RET, SDHA, SDHAF2, SDHB, SDHC, SDHD, SMAD4, SMARCA4, SMARCB1, SMARCE1, STK11, SUFU, CTWG118, TP53, TSC1, TSC2, and VHL The Multi-Cancer panel looks at genes associated with cancers of the breast, gynecologic tract (ovarian, uterine/endometrial), gastrointestinal system (colorectal, gastric, pancreatic), endocrine glands (thyroid, parathyroid, pituitary, adrenal glands), genitourinary tract (renal/urinary tract, prostate), skin (melanoma, basal cell carcinoma), and brain/nervous system. AM CHECKING WITH [employer] FIRST ABOUT VARIANT BEFORE PROCEEDING, WILL CONTACT PATIENT WHEN READY TO MOVE FORWARD. Elsa Puentes MS, [facility] Licensed, Certified Genetic Counselor documented in this encounter [facility] 04-21-2023 Note HNO ID: [id number] Author: ELSA PUENTES LGC Service: ? Author Type: Genetic Counselor Type: Progress Notes Filed: 05/18/2023 16:44 Note Text: [facility] Consultation Note Genetic Counselor: Elsa Puentes MS, [facility] Patient: Lissa Rivas Patient Name and confirmed at initiation of visit. The patient provided consent for a virtual visit by [employer]. I have communicated my name and active licensure. The patient's identity and physical location were verified at the time of this visit. Either the patient or their legal new accounts representative has been informed of the risks [...] , descent and paternal ancestors are of Faroese descent. There is no Ashkenazi Taoist ancestry. There is no known consanguinity. A [...] We also revi (more content not included)... [facility] 04-21-2023 History of Present illness Narrative Images from the original note were not included. [facility] Consultation Note Genetic Counselor: Elsa Puentes MS, [facility] Patient: Lissa Rivas Patient Name and confirmed at initiation of visit. The patient provided consent for a virtual visit by Rachel Jerome. I have communicated my name and active licensure. The patient's identity and physical location were verified at the time of this visit. Either the patient or their legal new accounts representative has been informed of the risks [...] Laterality Date EYE SURGERY HX 03/2020 [facility] SURVEILLANCE HISTORY: Mammograms: No Breast MRI's: [...] , descent and paternal ancestors are of Faroese descent. There is no Ashkenazi Taoist ancestry. There is no known consanguinity. A [...] extend to insurances such as life insurance, lobsterman care, or disability. The patient was seen for a total of 30 minutes, greater than 50% of which was spent [id number] counseling. This plan is being carried out under the oversight of Dr. Annamarie Joe. This note will also be sent to the referring provider via the electronic medical record. Elsa Puentes MS, [facility] CC: Dr. Fede Joe documented in this encounter [facility] 04-18-2023 Miscellaneous Notes Lissa Rivas [...] Kim Khan MD documented in this encounter [facility] 04-07-2023 Consult note Formatting of [...] Hysteroscopy Laparoscopy OPK (Ovulation Predictor Kit) [facility] 10.91 High 01/04/2023 Saline Ultrasound Semen [...] which included preparing to see the patient, [id number] patient care, counseling and educating the patient/family/caregiver, and ordering medications, tests, or procedures. I have communicated my name and active licensure. The patient's identity and physical location were verified at the time of this visit. Either the patient or their legal new accounts representative has been informed of the risks and benefits of -- and alternatives to -- treatment through a remote evaluation and consents to proceed with the evaluation remotely. Kim Khan MD documented in this encounter [facility] 02-08-2023 History of Present illness Narrative Patient is here for ultrasound. Please see image section in Epic for results. Kim Khan MD documented in this encounter [facility] 02-04-2023 Miscellaneous Notes 21 day progesterone level ordered. Ortega Morrissey APRN.JORDAN February 04, 2023 2:12 PM Pt states she has started her letrozole today documented in this encounter [facility] 06-26-2022 Evaluation note Encounter Date [...] May, Other Puncture wound material was printed [employer] Other 01-01-2021 History general Narrative - Reported* Type Description Date Medical History asthma Surgical History laser eye surgery, bilateral Hospitalization History Rash, age 5 [employer] Other Evaluation note* Diagnosis Encounter for fertility testing- Primary Fertility testing [facility] [place] [facility]* Diagnosis Secondary amenorrhea Absence of menstruation PCOS (polycystic ovarian syndrome) Polycystic ovaries [facility] [place] [facility]* Diagnosis PCOS (polycystic ovarian syndrome)- Primary Polycystic ovaries Fertility testing [facility] [place] [facility]* Diagnosis Family history of cancer- Primary Family history of unspecified malignant neoplasm Family history of gene mutation [facility] [place] [facility]* Diagnosis Family history of breast cancer- Primary Family history of malignant neoplasm of breast Family history of prostate cancer Family history of malignant neoplasm of prostate [facility] [place] [facility]* Diagnosis Procreative management- Primary Unspecified procreative management [facility] [place] [facility]* Diagnosis Monoallelic mutation of SDHA gene- Primary Localized enlarged lymph nodes Enlargement of lymph nodes Intra-abdominal and pelvic swelling, mass and lump, unspecified site [facility] [place] [facility]* Diagnosis Encounter for fertility testing- Primary Fertility testing Pre-procedure lab exam Pre-procedural laboratory examination [facility] [place] [facility]* Diagnosis Fertility testing [facility] [place] [facility]* Diagnosis Monoallelic mutation of SDHA gene- Primary Obesity, Class III, BMI 40-49.9 (morbid obesity) (HCC) Morbid obesity [facility] [place] [facility]* Diagnosis Irregular menstrual cycle- Primary PCOS (polycystic ovarian syndrome) Polycystic ovaries [facility] [place] [facility]* Diagnosis Monoallelic mutation of SDHA gene- Primary [facility] [place] [facility]* Diagnosis Secondary amenorrhea- Primary Absence of menstruation [facility] [place] [facility]* Diagnosis Secondary amenorrhea- Primary Absence of menstruation [facility] [place] [facility]* Diagnosis Screen for sexually transmitted diseases- Primary Screening examination for venereal disease Secondary amenorrhea Absence of menstruation Female infertility Female infertility of unspecified origin documented in this encounter [facility] note* Diagnosis Procreation management investigation and testing- Primary Other investigation and testing for procreative management documented in this encounter [facility] note* Diagnosis Treatment plan provided- Primary documented in this encounter [facility] note* Diagnosis Female infertility Female infertility of unspecified origin documented in this encounter [facility] note* Diagnosis Encounter for artificial insemination- Primary Artificial insemination documented in this encounter [facility] note* Diagnosis Procreation management investigation and testing- Primary Other investigation and testing for procreative management documented in this encounter [facility] note* Diagnosis Procreation management investigation and testing- Primary Other investigation and testing for procreative management Female infertility Female infertility of unspecified origin documented in this encounter [facility] note* Diagnosis Procreation management investigation and testing- Primary Other investigation and testing for procreative management documented in this encounter [facility] note* Diagnosis Procreation management investigation and testing- Primary Other investigation and testing for procreative management documented in this encounter [facility] note* Diagnosis Female infertility Female infertility of unspecified origin documented in this encounter [facility] note* Diagnosis Procreation management investigation and testing- Primary Other investigation and testing for procreative management documented in this encounter [facility] note* Diagnosis Female infertility- Primary Female infertility of unspecified origin documented in this encounter [facility] note* Diagnosis Female infertility- Primary Female infertility of unspecified origin documented in this encounter [facility] note* Diagnosis Encounter for artificial insemination- Primary Artificial insemination documented in this encounter [facility] note* Diagnosis Procreation management investigation and testing- Primary Other investigation and testing for procreative management documented in this encounter [facility] note* Diagnosis Female infertility- Primary Female infertility of unspecified origin documented in this encounter [facility] note* Diagnosis Encounter for gynecological examination without abnormal finding- Primary Screening for malignant neoplasm of cervix Screening for malignant neoplasm of the cervix Desire for BV (bacterial vaginosis) Unspecified vaginitis and vulvovaginitis documented in this encounter [facility] note* Diagnosis Procreation management investigation and testing- Primary Other investigation and testing for procreative management [facility] [place] [facility]* Diagnosis Female infertility Female infertility of unspecified origin [facility] [place] [facility]* Diagnosis Female infertility- Primary Female infertility of unspecified origin [facility] [place] [facility]* Diagnosis Otalgia of both ears- Primary Temporomandibular joint disorder Unspecified temporomandibular joint disorders Chronic allergic rhinitis Postnasal drip documented in this encounter [facility] Work Phone: Evaluation note* Diagnosis Supervision of with history of infertility, first trimester- Primary examination or test, unconfirmed [facility] [place] [facility]* Diagnosis Encounter for test, result positive- Primary examination or test, positive result [facility] [place] [facility]* Diagnosis Supervision of with history of infertility, first trimester- Primary [facility] [place] [facility]* Diagnosis PCOS (polycystic ovarian syndrome)- Primary Polycystic ovaries [facility] [place] [facility]* Diagnosis Encounter for supervision of normal first in first trimester Encounter for drug screening [facility] Supervision of with history of infertility, first trimester [facility] [place] [facility]* Diagnosis Procreation management investigation and testing- Primary Other investigation and testing for procreative management [facility] [place] [facility]* Diagnosis Missed menses , unspecified gestational age Encounter for supervision of normal first in first trimester 9 weeks gestation of [facility] Diagnosis First trimester state, incidental 13 weeks gestation of Urinary tract infection without hematuria, site unspecified [facility]* Diagnosis Onychomycosis- Primary Dermatophytosis of nail Onychodystrophy Other specified disease of nail Xerosis cutis Other specified disease of sebaceous glands Fissure in skin of both feet documented [facility]* Diagnosis Second trimester state, incidental 14 weeks gestation of Spotting in Spotting complicating , unspecified as to episode of care or not applicable [facility] Diagnosis Monoallelic mutation of SDHA gene- Primary [facility] Diagnosis Diabetes mellitus screening Screening for diabetes mellitus Second trimester state, incidental 22 weeks gestation of [facility] Diagnosis Annual physical exam- Primary Routine general medical examination at a health care facility Hepatic steatosis Other chronic 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 Polycystic ovaries Vitamin D deficiency Palpitations Murmur Undiagnosed cardiac murmurs documented [facility]* Diagnosis Second trimester state, incidental 26 weeks gestation of documented in this encounter [facility] noteNo assessment information [facility] Work Phone: Evaluation note* Diagnosis Gestational diabetes mellitus (GDM) in third trimester, gestational diabetes method of control unspecified- Primary [facility] Monoallelic mutation of SDHA gene- Primary Gestational diabetes mellitus (GDM) in third trimester, gestational diabetes method of control unspecified (HCC) [facility] [place] [facility]* Diagnosis 28 weeks gestation of Third trimester state, incidental Gestational diabetes mellitus (GDM), antepartum, gestational diabetes method of control unspecified Herpes simplex virus type 1 (HSV-1) dermatitis [facility] Diagnosis Insulin controlled gestational diabetes mellitus (GDM) in third trimester Abnormal liver enzymes Abnormal genetic test Gestational diabetes requiring insulin Abnormal maternal glucose tolerance, complicating , childbirth, or the puerperium, unspecified as to episode of care Elevated blood pressure affecting , antepartum [facility] History of gestational diabetes- Primary Personal history of other genital system and obstetric disorders Third trimester (HHS-HCC) state, incidental 31 weeks gestation of (HHS-HCC) [facility] on filedocumented in this encounter[facility] SystemInstructionsNot on filedocumented in this encounterPro[facility] SystemInstructionsNot on filedocumented in this encounterPro[facility] SystemInstructionsNot on filedocumented in this encounterPro[facility] InstructionsNot on filedocumented in this encounterProPromedica [facility] SystemReason for referral (narrative)* Diagnostic Procedure Only (Routine) - Pending Review Specialty Diagnoses / Procedures Referred By Blair t Referred To Contact XR IMAGING Diagnoses Fertility testing Procedures XR HYSTEROSALPINGOGRAM CATH & SALINE/CONTRAST SONOHYSTER/HYSTEROSALPI Fede Hairston MD [address] [place] [address] [place] [address] Referral ID Status Reason Start Date Expiration Date Visits Requested Visits Authorized [id number] Pending Review Auto-Generat ed Referral 04/18/2023 05/17/2024 1 1 [facility] for referral (narrative)* Diagnostic Procedure Only (Routine) - Pending Review Specialty Diagnoses / Procedures Referred By Blair t Referred To Contact [facility] Diagnoses Female infertility Procedures FOLLICULAR US I US PELVIC NONOBSTETRIC IMAGE DCMTLynnette LIMITED/F/U Ortega Morrissey APRN.CNM [address] [place] [address] [facility] [address] [place] [address] Referral ID Status Reason Start Date Expiration Date Visits Requested Visits Authorized [id number] Pending Review Auto-Generat ed Referral 09/10/2023 09/09/2024 1 1 [facility] for referral (narrative)* Diagnostic Procedure Only (Routine) - New Request Specialty Diagnoses / Procedures Referred By Blair t Referred To Contact [facility] Diagnoses Female infertility Procedures FOLLICULAR US I US PELVIC NONOBSTETRIC IMAGE JOE LIMITED/F/U Ortega Morrissey APRN.SR. DIRECTOR [address] [facility] [place] [address] [facility] [address] [place] [address] Referral ID Status Reason Start Date Expiration Date Visits Requested Visits Authorized [id number] New Request Auto-Generat ed Referral 12/13/2023 12/12/2024 1 1 [facility] for referral (narrative)* Diagnostic Procedure Only (Routine) - New Request Specialty Diagnoses / Procedures Referred By Blair t Referred To Contact [facility] Diagnoses Female infertility Procedures FOLLICULAR US WHI US PELVIC NONOBSTETRIC IMAGE DCMTN LIMITED/F/U Ortega Morrissey APRN.SR. DIRECTOR [address] [facility] [place] [address] [place] [id number] Referral ID Status Reason Start Date Expiration Date Visits Requested Visits Authorized [id number] New Request Auto-Generat ed Referral 4 02/14/2025 1 1 [facility] for referral (narrative)* Diagnostic Procedure Only (Routine) - Authorized Specialty Diagnoses / Procedures Referred By Controberto t Referred To Contact [facility] Diagnoses Supervision of with history of infertility, first trimester Procedures OBSTETRIC ULTRASOUND WHI US PREG UTERUS AFTER 1ST TRIMEST GESTATION Ortega Morrissey APRN.SR. DIRECTOR [address] [facility] [place] [address] [address] Referral ID Status Reason Start Date Expiration Date Visits Requested Visits Authorized [id number] Authorized Auto-Generat ed Referral 4 03/17/2025 1 1 [facility] for visit Narrative* Diagnostic Procedure Only (Routine) - Closed Specialty Diagnoses / Procedures Referred By Controberto t Referred To Contact [facility] Diagnoses Supervision of with history of infertility, first trimester Procedures OBSTETRIC ULTRASOUND WHI US PREG UTERUS AFTER 1ST TRIMEST GESTATION Ortega Morrissey APRN.SR. DIRECTOR [address] [facility] [place] [address] [place] [address] [place] [address] Referral ID Status Reason Start Date Expiration Date V isits Requested Visits Authorized [id number] Closed Auto-Generate d Referral 03/17/2024 03/17/2025 1 1 [facility] Summary Purpose Family History Relationship Condition Age at Onset Recorded Date/T lucero father Diabetes mellitus Unknown Heart disease Unknown mother Hypertension Unknown Advance Directives Advance Directive Response Recorded Date/ Time Advance Directives No February 2:57pm Reason for Referral Specialty Diagnoses / Procedures Referred By Contac t Referred To Contact [facility] Diagnoses Female infertility Procedures FOLLICULAR US I US PELVIC NONOBSTETRIC IMAGE DCMTN LIMITED/F/U Ortega Morrissey APRN.SR. DIRECTOR [address] [facility] [place] [address] [place] [id number] [place] [address] Referral ID Status Reason Start Date Expiration Date Visits Requested Visits Authorized [id number] Authorized Benefit Check 11/15/2023 03/28/2024 1 1 Specialty Diagnoses / Procedures Referred By Contac t Referred To Contact Ortega Morrissey, DEBBIE.SR. DIRECTOR [address] [facility] [place] [address] Referral ID Status Reason Start Date Expiration Date Visits Re quested Visits Authorized [id number] Closed 1 1 Specialty Diagnoses / Procedures Referred By Contac t Referred To Contact Diagnoses Obesity, Class III, BMI 40-49.9 (morbid obesity) (HCC) Procedures ENDOCRINE MEDICAL WEIGHT MANAGEMENT OFFICE/OUTPATIENT [facility] 60 MINUTES Mirta Gallagher MD [address] [place] [address] Referral ID Status Reason Start Date Expiration Date Visits Requested Visits Authorized [id number] Authorized PCP Requested Referral 08/17/2023 08/16/2024 1 1 Specialty Diagnoses / Procedures Referred By Contac t Referred To Contact CT IMAGING Diagnoses Intra-abdominal and pelvic swelling, mass and lump, unspecified site Procedures CT ABDOMEN W IVCON CT ABDOMEN W/CONTRAST Мария Laboy MD [address] [place] [address] [facility] Referral ID Status Reason Start Date Expiration Date Visits Requested Visits Authorized [id number] Pending Review Auto-Generat ed Referral 06/16/2023 07/15/2024 1 1 Specialty Diagnoses / Procedures Referred By Contac t Referred To Contact CT IMAGING Diagnoses Localized enlarged lymph nodes Procedures CT CHEST W IVCON DIAGNOSTIC COMPUTED TOMOGRAPHY THORAX W/CONTRAST Мария Laboy MD [address] [place] [address] [address] [facility] [place] [address] Referral ID Status Reason Start Date Expiration Date Visits Requested Visits Authorized [id number] Pending Review Auto-Generat ed Referral 06/16/2023 07/15/2024 1 1 Specialty Diagnoses / Procedures Referred By Contac t Referred To Contact CT IMAGING Diagnoses Localized enlarged lymph nodes Procedures CT NECK SOFT TISSUE W IVCON CT SOFT TISSUE NECK W/CONTRAST MATERIAL Мария Laboy MD [address] [place] [address] [address] [facility] [place] [address] Referral ID Status Reason Start Date Expiration Date Visits Requested Visits Authorized [id number] Pending Review Auto-Generat ed Referral 06/16/2023 07/15/2024 1 1 Chief Complaint and Reason for Visit Chief Complaint Admit Date R00.2 R01.1 August 24, 2024 12:14 pm Additional Source Comments INFORMATION SOURCE (unrecogn ized section and content) DATE CREATED AUTHOR 12/06/2019 [facility] DATE CREATED AUTHOR AUTHOR'S ORGANIZ ATION 07/24/2023 [facility] DATE CREATED AUTHOR AUTHOR'S ORGANIZ ATION 02/25/2024 [facility] DATE CREATED AUTHOR AUTHOR'S ORGANIZ ATION 03/11/2024 [facility] DATE CREATED AUTHOR AUTHOR'S ORGANIZ ATION 03/11/2024 [facility] DATE CREATED AUTHOR AUTHOR'S ORGANIZ ATION 09/01/2024 [facility] DATE CREATED AUTHOR AUTHOR'S ORGANIZ ATION 09/03/2024 [facility] DATE CREATED AUTHOR AUTHOR'S ORGANIZ ATION 09/09/2024 [facility] EPIC DATE CREATED AUTHOR AUTHOR'S ORGANIZ ATION 09/12/2024 [facility] REASON FOR VISIT (unrecogniz ed section and content) Reason Comments Infertility Specialty Diagnoses / Procedures Referred By Contac t Referred To Contact [facility] [facility] Diagnoses Female infertility Procedures FOLLICULAR US [facility] US PELVIC NONOBSTETRIC IMAGE DCMTN LIMITED/F/U Ortega Morrissey, DEBBIE.SR. DIRECTOR [address] [facility] [place] [address] [facility] [address] [place] [id number] Referral ID Status Reason Start Date Expiration Date V isits Requested Visits Authorized [id number] Closed Benefit Check 02/16/2024 03/28/2024 1 1 Reason Comments started letrozole Specialty Diagnoses / Procedures [facility] To Contact [facility] Diagnoses Secondary amenorrhea PCOS (polycystic ovarian syndrome) Procedures PELVIC US [facility] US PELVIC NONOBSTETRIC REAL-TIME IMAGE COMPLETE Fede Hairston MD [address] [place] [address] [facility] [address] [place] [id number] Referral ID Status Reason Start Date Expiration Date V isits Requested Visits Authorized [id number] Closed Benefit Check 01/21/2023 03/28/2023 1 1 Reason Comments Follow Up Reason Comments Follow Up Reason Comments Appointment Reason Comments refill letrozol/cycle to start in next w crow 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 Hereditary Para ganglioma-Pheochromocytoma Syndrome clinic Reason Comments Results Genetic Reason Comments Nurse Visit Specialty Diagnoses / Procedures Referred By Blair t Referred To Contact XR IMAGING Diagnoses Fertility testing Procedures XR HYSTEROSALPINGOGRAM CATH & SALINE/CONTRAST SONOHYSTER/HYSTEROSALPI HYSTEROSALPINGOGRAPHY RS&I URINE TEST Fede Hairston MD [address] [address] [place] [address] Referral ID Status Reason Start Date Expiration Date V isits Requested Visits Authorized [id number] Closed Benefit Check 07/19/2023 03/28/2024 1 1 Reason Comments paraganglioma Reason Comments New Patient SHDA ref by Fina Tate Reason Comments lmp 07/23 no cycle since then Reason Comments Patient Question Reason Comments Treatment Planning Reason Comments Ortega lmp today/re us day 11-13 for iui Reason Comments trigger shot Specialty Diagnoses / Procedures Referred By Contac t Referred To Contact [facility] Diagnoses Female infertility Procedures FOLLICULAR US [facility] US PELVIC NONOBSTETRIC IMAGE DCMTN LIMITED/F/U Ortega Morrissey, DEBBIE.SR. DIRECTOR [address] [facility] [place] [address] [facility] [address] [place] [address] Referral ID Status Reason Start Date Expiration Date Visits Re quested Visits Authorized [id number] Closed 09/14/2023 03/28/2024 1 1 Specialty Diagnoses / Procedures Referred By Contac t Referred To Contact [facility] Diagnoses Encounter for other procreative management Procedures ARTIFIC INSEMINATION INTRAUTERIN Ortega Morrissey APRN.SR. DIRECTOR [address] [facility] [place] [address] Ortega Morrissey APRN.SR. DIRECTOR [address] [facility] [place] [address] Referral ID Status Reason Start Date Expiration Date V isits Requested Visits Authorized [id number] Closed Benefit Check 09/17/2023 03/16/2024 1 1 Reason Comments iui 10/25 , cd 1 11/11 Reason Comments Treatment Planning Referral ID Status Reason Start Date Expiration Date V isits Requested Visits Authorized [id number] Closed Benefit Check 11/15/2023 03/28/2024 1 1 Specialty Diagnoses / Procedures Referred By Contac t Referred To Contact LABORATORY MEDICINE Diagnoses Encounter for other procreative management Procedures ARTIFIC INSEMINATION INTRAUTERIN Deshawn Riojas MD [address] [place] [address] [facility] [address] [place] [address] Referral ID Status Reason Start Date Expiration Date V isits Requested Visits Authorized [id number] Closed Financial Clearance Required - Self Pay 11/27/2023 02/25/2024 1 1 Reason Comments LMP 12/12/23/ set up monitored cycle Patient Update Referral ID Status Reason Start Date Expiration Date V isits Requested Visits Authorized [id number] Closed Benefit Check 12/15/2023 03/28/2024 1 1 Reason Comments IUI Specialty Diagnoses / Procedures Referred By Contac t Referred To Contact [facility] ENDOCRINOLOGY [facility] FERTILITY Diagnoses Encounter for other procreative management Female infertility, unspecified Procedures ARTIFIC INSEMINATION INTRAUTERIN Self Whi Gayathri [facility] [address] [place] [address] Referral ID Status Reason Start Date Expiration Date Visits Requested Visits Authorized [id number] Authorized Benefit Check 09/15/2023 03/16/2024 2 2 [...] Visit Reason Comments Toenail Problem 29 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 Ongoing for quite a while. Has tried OTC products for both issues. Reason Comments Annual Exam No lab ordered prior to visit. Patient is feeling good. She is 4 months . Reason Comments Elevated Glucose Tolerance Test Specialty Diagnoses / Procedures Referred By Contac t Referred To Contact Maternal and Medicine Diagnoses Gestational diabetes mellitus (GDM) in third trimester, gestational diabetes method of control unspecified Saravanan Ahumada R, DO [address] [place] [address] Phone: tel: fax: [facility]- Medicine at [facility] [address] [place] [address] Phone: tel: fax: Referral ID Status Reason Start Date Expiration Date Visits Requested Visits Authorized [id number] Pending Review Specialty Services Required 08/29/2024 08/29/2025 1 1 Reason Comments MEDSTART-GDM Source Comments (unrecognize d section and content) In the event this informatio n is protected by the Federal Confidentiality of Alcohol and Drug Abuse Patient Records regulations: The Federal rules restrict any use of the information to criminally investigate or prosecute any alcohol or drug abuse patient.[facility] the event this information is protected by the Federal Confidentiality of Alcohol and Drug Abuse Patient Records regulations: The Federal rules restrict any use of the information to criminally investigate or prosecute any alcohol or drug abuse patient.[facility] the event this information is protected by the Federal Confidentiality of Alcohol and Drug Abuse Patient Records regulations: The Federal rules restrict any use of the information to criminally investigate or prosecute any alcohol or drug abuse patient.[facility] the event this information is protected by the Federal Confidentiality of Alcohol and Drug Abuse Patient Records regulations: The Federal rules restrict any use of the information to criminally investigate or prosecute any alcohol or drug abuse patient.[facility] the event this information is protected by the Federal Confidentiality of Alcohol and Drug Abuse Patient Records regulations: The Federal rules restrict any use of the information to criminally investigate or prosecute any alcohol or drug abuse patient.[facility] HospitalIn the event this information is protected by the Federal Confidentiality of Alcohol and Drug Abuse Patient Records regulations: The Federal rules restrict any use of the information to criminally investigate or prosecute any alcohol or drug abuse patient.[facility] Hospital[facility] the event this information is protected by the Federal Confidentiality of Alcohol and Drug Abuse Patient Records regulations: The Federal rules restrict any use of the information to criminally investigate or prosecute any alcohol or drug abuse patient.[facility] the event this information is protected by the Federal Confidentiality of Alcohol and Drug Abuse Patient Records regulations: The Federal rules restrict any use of the information to criminally investigate or prosecute any alcohol or drug abuse patient.[facility] the event this information is protected by the Federal Confidentiality of Alcohol and Drug Abuse Patient Records regulations: The Federal rules restrict any use of the information to criminally investigate or prosecute any alcohol or drug abuse patient.[facility] the event this information is protected by the Federal Confidentiality of Alcohol and Drug Abuse Patient Records regulations: The Federal rules restrict any use of the information to criminally investigate or prosecute any alcohol or drug abuse patient.[facility] the event this information is protected by the Federal Confidentiality of Alcohol and Drug Abuse Patient Records regulations: The Federal rules restrict any use of the information to criminally investigate or prosecute any alcohol or drug abuse patient.[facility] Hospital[facility] the event this information is protected by the Federal Confidentiality of Alcohol and Drug Abuse Patient Records regulations: The Federal rules restrict any use of the information to criminally investigate or prosecute any alcohol or drug abuse patient.[facility] Hospital[facility] the event this information is protected by the Federal Confidentiality of Alcohol and Drug Abuse Patient Records regulations: The Federal rules restrict any use of the information to criminally investigate or prosecute any alcohol or drug abuse patient.[facility] HospitalIn the event this information is protected by the Federal Confidentiality of Alcohol and Drug Abuse Patient Records regulations: The Federal rules restrict any use of the information to criminally investigate or prosecute any alcohol or drug abuse patient.[facility] HospitalIn the event this information is protected by the Federal Confidentiality of Alcohol and Drug Abuse Patient Records regulations: The Federal rules restrict any use of the information to criminally investigate or prosecute any alcohol or drug abuse patient.[facility] HospitalIn the event this information is protected by the Federal Confidentiality of Alcohol and Drug Abuse Patient Records regulations: The Federal rules restrict any use of the information to criminally investigate or prosecute any alcohol or drug abuse patient.[facility] HospitalIn the event this information is protected by the Federal Confidentiality of Alcohol and Drug Abuse Patient Records regulations: The Federal rules restrict any use of the information to criminally investigate or prosecute any alcohol or drug abuse patient.[facility] HospitalIn the event this information is protected by the Federal Confidentiality of Alcohol and Drug Abuse Patient Records regulations: The Federal rules restrict any use of the information to criminally investigate or prosecute any alcohol or drug abuse patient.[facility] HospitalIn the event this information is protected by the Federal Confidentiality of Alcohol and Drug Abuse Patient Records regulations: The Federal rules restrict any use of the information to criminally investigate or prosecute any alcohol or drug abuse patient.[facility] HospitalIn the event this information is protected by the Federal Confidentiality of Alcohol and Drug Abuse Patient Records regulations: The Federal rules restrict any use of the information to criminally investigate or prosecute any alcohol or drug abuse patient.[facility] HospitalIn the event this information is protected by the Federal Confidentiality of Alcohol and Drug Abuse Patient Records regulations: The Federal rules restrict any use of the information to criminally investigate or prosecute any alcohol or drug abuse patient.[facility] HospitalIn the event this information is protected by the Federal Confidentiality of Alcohol and Drug Abuse Patient Records regulations: The Federal rules restrict any use of the information to criminally investigate or prosecute any alcohol or drug abuse patient.[facility] HospitalIn the event this information is protected by the Federal Confidentiality of Alcohol and Drug Abuse Patient Records regulations: The Federal rules restrict any use of the information to criminally investigate or prosecute any alcohol or drug abuse patient.[facility] HospitalIn the event this information is protected by the Federal Confidentiality of Alcohol and Drug Abuse Patient Records regulations: The Federal rules restrict any use of the information to criminally investigate or prosecute any alcohol or drug abuse patient.[facility] HospitalIn the event this information is protected by the Federal Confidentiality of Alcohol and Drug Abuse Patient Records regulations: The Federal rules restrict any use of the information to criminally investigate or prosecute any alcohol or drug abuse patient.[facility] HospitalIn the event this information is protected by the Federal Confidentiality of Alcohol and Drug Abuse Patient Records regulations: The Federal rules restrict any use of the information to criminally investigate or prosecute any alcohol or drug abuse patient.[facility] HospitalIn the event this information is protected by the Federal Confidentiality of Alcohol and Drug Abuse Patient Records regulations: The Federal rules restrict any use of the information to criminally investigate or prosecute any alcohol or drug abuse patient.[facility] HospitalIn the event this information is protected by the Federal Confidentiality of Alcohol and Drug Abuse Patient Records regulations: The Federal rules restrict any use of the information to criminally investigate or prosecute any alcohol or drug abuse patient.[facility] HospitalIn the event this information is protected by the Federal Confidentiality of Alcohol and Drug Abuse Patient Records regulations: The Federal rules restrict any use of the information to criminally investigate or prosecute any alcohol or drug abuse patient.[facility] HospitalIn the event this information is protected by the Federal Confidentiality of Alcohol and Drug Abuse Patient Records regulations: The Federal rules restrict any use of the information to criminally investigate or prosecute any alcohol or drug abuse patient.[facility] HospitalIn the event this information is protected by the Federal Confidentiality of Alcohol and Drug Abuse Patient Records regulations: The Federal rules restrict any use of the information to criminally investigate or prosecute any alcohol or drug abuse patient.[facility] HospitalIn the event this information is protected by the Federal Confidentiality of Alcohol and Drug Abuse Patient Records regulations: The Federal rules restrict any use of the information to criminally investigate or prosecute any alcohol or drug abuse patient.[facility] HospitalIn the event this information is protected by the Federal Confidentiality of Alcohol and Drug Abuse Patient Records regulations: The Federal rules restrict any use of the information to criminally investigate or prosecute any alcohol or drug abuse patient.[facility] HospitalIn the event this information is protected by the Federal Confidentiality of Alcohol and Drug Abuse Patient Records regulations: The Federal rules restrict any use of the information to criminally investigate or prosecute any alcohol or drug abuse patient.[facility] HospitalIn the event this information is protected by the Federal Confidentiality of Alcohol and Drug Abuse Patient Records regulations: The Federal rules restrict any use of the information to criminally investigate or prosecute any alcohol or drug abuse patient.[facility] HospitalIn the event this information is protected by the Federal Confidentiality of Alcohol and Drug Abuse Patient Records regulations: The Federal rules restrict any use of the information to criminally investigate or prosecute any alcohol or drug abuse patient.[facility] HospitalIn the event this information is protected by the Federal Confidentiality of Alcohol and Drug Abuse Patient Records regulations: The Federal rules restrict any use of the information to criminally investigate or prosecute any alcohol or drug abuse patient.[facility] HospitalIn the event this information is protected by the Federal Confidentiality of Alcohol and Drug Abuse Patient Records regulations: The Federal rules restrict any use of the information to criminally investigate or prosecute any alcohol or drug abuse patient.[facility] HospitalIn the event this information is protected by the Federal Confidentiality of Alcohol and Drug Abuse Patient Records regulations: The Federal rules restrict any use of the information to criminally investigate or prosecute any alcohol or drug abuse patient.[facility] HospitalIn the event this information is protected by the Federal Confidentiality of Alcohol and Drug Abuse Patient Records regulations: The Federal rules restrict any use of the information to criminally investigate or prosecute any alcohol or drug abuse patient.[facility] HospitalIn the event this information is protected by the Federal Confidentiality of Alcohol and Drug Abuse Patient Records regulations: The Federal rules restrict any use of the information to criminally investigate or prosecute any alcohol or drug abuse patient.[facility] HospitalIn the event this information is protected by the Federal Confidentiality of Alcohol and Drug Abuse Patient Records regulations: The Federal rules restrict any use of the information to criminally investigate or prosecute any alcohol or drug abuse patient.[facility] HospitalIn the event this information is protected by the Federal Confidentiality of Alcohol and Drug Abuse Patient Records regulations: The Federal rules restrict any use of the information to criminally investigate or prosecute any alcohol or drug abuse patient.[facility] HospitalIn the event this information is protected by the Federal Confidentiality of Alcohol and Drug Abuse Patient Records regulations: The Federal rules restrict any use of the information to criminally investigate or prosecute any alcohol or drug abuse patient.[facility] HospitalIn the event this information is protected by the Federal Confidentiality of Alcohol and Drug Abuse Patient Records regulations: The Federal rules restrict any use of the information to criminally investigate or prosecute any alcohol or drug abuse patient.[facility] HospitalIn the event this information is protected by the Federal Confidentiality of Alcohol and Drug Abuse Patient Records regulations: The Federal rules restrict any use of the information to criminally investigate or prosecute any alcohol or drug abuse patient.[facility] HospitalIn the event this information is protected by the Federal Confidentiality of Alcohol and Drug Abuse Patient Records regulations: The Federal rules restrict any use of the information to criminally investigate or prosecute any alcohol or drug abuse patient.[facility] HospitalIn the event this information is protected by the Federal Confidentiality of Alcohol and Drug Abuse Patient Records regulations: The Federal rules restrict any use of the information to criminally investigate or prosecute any alcohol or drug abuse patient.[facility] Care Teams (unrecognized sec tion and content) Lock Fitter Relationship Specialty Start Date End Date Robles Goldsmith DO [address] [place] [address] Referring Obstetrics 10/13/22 Lock Fitter Relationship Specialty Start Date End Date Robles Goldsmith DO [address] [place] [address] Referring Obstetrics 10/13/22 Lock Fitter Relationship Specialty Start Date End Date Robles Goldsmith, DO [address] [place] [address] Referring Obstetrics 10/13/22 Lock Fitter Relationship Specialty Start Date End Date Robles Goldsmith, DO [address] [place] [address] Referring Obstetrics 10/13/22 Lock Fitter Relationship Specialty Start Date End Date Robles Goldsmith, DO [address] [place] [address] Referring Obstetrics 10/13/22 Lock Fitter Relationship Specialty Start Date End Date Robles Goldsmith, DO [address] [place] [address] Referring Obstetrics 10/13/22 Lock Fitter Relationship Specialty Start Date End Date Robles Goldsmith, DO [address] [place] [address] Referring Obstetrics 10/13/22 Lock Fitter Relationship Specialty Start Date End Date Robles Goldsmith, DO [address] [place] [address] Referring Obstetrics 10/13/22 Lock Fitter Relationship Specialty Start Date End Date Robles Goldsmith, DO [address] [place] [address] Referring Obstetrics 10/13/22 Lock Fitter Relationship Specialty Start Date End Date Robles Goldsmith, DO [address] [place] [address] Referring Obstetrics 10/13/22 Lock Fitter Relationship Specialty Start Date End Date Robles Goldsmith, DO [address] [place] [address] Referring Obstetrics 10/13/22 Lock Fitter Relationship Specialty Start Date End Date Robles Goldsmith, DO [address] [place] [address] Referring Obstetrics 10/13/22 Lock Fitter Relationship Specialty Start Date End Date Robles Goldsmith, DO [address] [place] [address] Referring Obstetrics 10/13/22 Lock Fitter Relationship Specialty Start Date End Date Robles Goldsmith, DO [address] [place] [address] Referring Obstetrics 10/13/22 Lock Fitter Relationship Specialty Start Date End Date Robles Goldsmith, DO [address] [place] [address] Referring Obstetrics 10/13/22 Lock Fitter Relationship Specialty Start Date End Date Robles Goldsmith, DO [address] [place] [address] Referring Obstetrics 10/13/22 Lock Fitter Relationship Specialty Start Date End Date Robles Goldsmith, DO [address] [place] [address] Referring Obstetrics 10/13/22 Lock Fitter Relationship Specialty Start Date End Date Robles Goldsmith DO [address] [place] [address] Referring Obstetrics 10/13/22 Lock Fitter Relationship Specialty Start Date End Date Robles Goldsmith DO [address] [place] [address] Referring Obstetrics 10/13/22 Lock Fitter Relationship Specialty Start Date End Date Lito Velazquez MD [address] [place] [address] PCP - General Internal Medicine 10/05/22 Lock Fitter Relationship Specialty Start Date End Date Lito Velazquez MD [address] [place] [address] PCP - General Internal Medicine 10/05/22 Lock Fitter Relationship Specialty Start Date End Date Lito Velazquez MD [address] [address] [place] [address] PCP - General Internal Medicine 02/14/24 Lock Fitter Relationship Specialty Start Date End Date Robles Goldsmith, [address] [place] [address] Referring Obstetrics 10/13/22 Lock Fitter Relationship Specialty Start Date End Date Lito Velazquez MD [address] [place] [address] PCP - General Internal Medicine 10/05/22 Lock Fitter Relationship Specialty Start Date End Date Robles Goldsmith DO [address] [place] [address] Referring Obstetrics 10/13/22 Lock Fitter Relationship Specialty Start Date End Date iLto Velazquez MD [address] [place] [address] PCP - General Internal Medicine 10/05/22 Lock Fitter Relationship Specialty Start Date End Date Lito Velazquez MD [address] [place] [address] PCP - General Internal Medicine 10/05/22 Lock Fitter Relationship Specialty Start Date End Date Lito Velazquez MD [address] [place] [address] PCP - General Internal Medicine 10/05/22 Lock Fitter Relationship Specialty Start Date End Date Lito Velazquez MD [address] [place] [address] PCP - General Internal Medicine 10/05/22 Lock Fitter Relationship Specialty Start Date End Date Lito Velazquez MD [address] [place], [place] [address] PCP - General Internal Medicine 10/05/22 Lock Fitter Relationship Specialty Start Date End Date Robles Goldsmith DO [address] [place] [address] Referring Obstetrics 10/13/22 Josefina Harris, ARIC [address] [place] [address] Registered Nurse 04/12/24 Lock Fitter Relationship Specialty Start Date End Date Lito Velazquez MD [address] [place] [address] PCP - General Internal Medicine 10/05/22 Lock Fitter Relationship Specialty Start Date End Date Lito Velazquez MD [address] [place] [address] PCP - General Internal Medicine 10/05/22 Lock Fitter Relationship Specialty Start Date End Date Lito Velazquez MD [address] [place] [address] PCP - General Internal Medicine 10/05/22 Lock Fitter Relationship Specialty Start Date End Date Lito Velazquez MD [address] [place] [address] PCP - General Internal Medicine 10/05/22 Team Status: Active Member Role Status Sean Velazquez MD Primary Care Provider Active Team Status: Inactive Member Role Status Dates Lito Velazquez MD Primary Care Provider Active St art: August 24, 2024 End: August 24, 2024 Jaime Davies RN MSN ANP-C Attending Provider Act tucker Start: August 24, 2024 End: August 24, 2024 Lock Fitter Relationship Specialty Start Date End Date Robles Goldsmith DO [address] [place] [phone] Referring Obstetrics 10/13/22 [place] [address] [place] [address] Specialty Geographic Area Intelligence Officer 04/12/24 Lock Fitter Relationship Specialty Start Date End Date Lito Velazquez MD [address] [place] [address] PCP - General Internal Medicine 10/05/22 Lock Fitter Relationship Specialty Start Date End Date Lito Velazquez MD [address] [place] [address] PCP - General Internal Medicine 10/05/22 Lock Fitter Relationship Specialty Start Date End Date Lito Velazquez MD [address] [place] [address] PCP - General Internal Medicine 10/05/22 Lock Fitter Relationship Specialty Start Date End Date Lito Velazquez MD [address] [place] [address] PCP - General Internal Medicine 10/05/22 Lock Fitter Relationship Specialty Start Date End Date Lito Velazquez MD [address] [place] [address] PCP - General Internal Medicine 10/05/22 Goals (unrecognized section and content) Goals may [...] BE BASED ON THE PRIMARY CLINICAL RECORDS. [employer] [facility]. provides no warranty or guarantee of the accuracy or completeness of information in this document.
[2024-09-14 11:14] LABS: Total Protein Urine Random 16.8 mg/dL (<=11.9)
[2024-09-14 11:15] LABS: Total Volume 24 Hour Urine 2500 mL/24hr
== END 2024-09-14 10:21 | disposition home or self-care (01) ==
LOC: LAB 10:20
PROVIDERS: PCP Internal Medicine; Visit Provider Obstetrics & Gynecology
DX: I10 Essential (primary) hypertension (principal)
CPT/HCPCS: 84156

== ENCOUNTER 2024-09-27 16:03 | Outpatient (OUT) | payer OTHER, SELFPAY ==
--- NOTE | 2024-09-27 16:12 | US_ITS ---
[place] [id number] Patient Name: LITO ROJAS MRN: [facility]:[id number] date: 1995 Sex: F Assigned Patient Location: [facility] Current Patient Location: [facility] Accession/Order Number: [id number] Exam Date: 09/27/2024 17:07 Report Date: 09/27/2024 17:08 At the request of: NEGAR GONZALEZ DO Procedure: US OB BPP w non-stress Biophysical profile. Reason for exam: Gestational diabetes. COMPARISON: None. TECHNIQUE: Transabdominal imaging of the gravid uterus was obtained. FINDINGS: The booster assembler reports the biophysical profile of 8 out of 8. RAKESH is normal at 18.6 cm. heart rate 145 bpm. US/US OB BPP w non-stress IMPRESSION: BPP 8 out of 8. Impression dictated by: Navjot Harmon Jr., D.O. 09/27/2024 5:08 PM Dictation Location: [place] [address] Electronically authenticated by: [id number] Y Date: 09/27/2024 17:08
[2024-09-27 17:01] VITALS: BP 120/80; PULSE 96
== END 2024-09-27 17:40 | disposition home or self-care (01) ==
LOC: US 16:11 → FBC 16:11
PROVIDERS: PCP Internal Medicine; Visit Provider Obstetrics & Gynecology
DX: O24.419 Gestational diabetes mellitus in pregnancy, unspecified control (principal); Z3A.32 32 weeks gestation of pregnancy
CPT/HCPCS: 76818

== ENCOUNTER 2024-09-30 08:57 | Outpatient (OUT) | payer OTHER, SELFPAY ==
--- OUTSIDE RECORDS SUMMARY | 2024-07-17 10:40 | XMS_ITS | Encounter Summary ---
Author Organization [facility] Address [address] [place] [address] Care Team Providers Care Labor Commissioner Name Role Phone Omer Velazquez MD Primary Care Provider [phone] Reason for Visit * Reason Comments Routine Visit Encounter Details Date Type Department Care Team (Late st Contact Info) Description 07/17/2024 10:40 AM EDT Routine [facility] [address] [place] [address] Saravanan Ahumada, DO [address] [place], [facility]11 Diabetes mellitus screening; Second trimester ([facility]); 22 weeks gestation of ([facility]) Social History Tobacco Use Types Packs/Day Years [...] [place] Hypertension Mother Estee Other (SDHA) Mother [place] Asthma Father Franklin Diabetes Father Franklin Heart [...] nursing note reviewed. Exam conducted with a data architect present. Vitals: Estimated body mass index is 39.15 kg/m² as calculated from the following: Height as [...] during travel. Patient was prescribed medication from pearl hand and provider will reach out to patient [...] leaving that lotion that was prescribed by Reference Assistant is safe to use, but not in large doses. PVU documented in this encounter Plan of Treatment Upcoming Encounters Date Type Department Care Team (Late st Contact Info) Description 10/02/2024 10:30 AM EDT Ancillary Procedure [facility] [address] [place] [address] 10/02/2024 11:00 AM EDT Routine [facility] OB [address] [place] [address] Saravanan Ahumada DO [address] [place] [address] 07/24/2025 9:15 AM EDT Office Visit [facility] [address] [place] [address] Scheduled Orders Name Type Priority [...] 11:08 AM EDT 22 weeks gestation of ([facility]) documented in this encounter Results * (ABNORMAL) [...] Urine 07/17/2024 11:0 8 AM EDT Saravanan Ahumada DO POINT OF CARE TEST ENTER/EDIT OR DERABLES Final Result documented in this encounter Visit Diagnoses Diagnosis Diabetes mellitus screening Screening for diabetes mellitus Second trimester ([facility]) state, incidental 22 weeks gestation of ([facility]) documented in this encounter Additional Health Concerns Active Problems Noted Date Diagnosed Date OB Reminders 04/30/2024 documented as of this encounter Care Teams Labor Commissioner Relationship Specialty Start Date End Date Omer Velazquez MD [address] [facility] [address] [place] [id number] PCP - General Internal Medicine 10/05/22 documented as of this encounter
--- OUTSIDE RECORDS SUMMARY | 2024-09-13 11:30 | XMS_ITS | Encounter Summary ---
Author Organization [facility] Address [address] [place] [address] Care Team Providers Care Home Health Care Social Worker Name Role Phone Omer Velazquez MD Primary Care Provider [phone] Reason for Visit * Reason Comments Routine Visit Encounter Details Date Type Department Care Team (Late st Contact Info) Description 09/13/2024 11:30 AM EDT Routine [facility] [address] [place] [address] Saravanan Ahumada, DO [address] [facility] [address] [address] [place], [facility]11 History of gestational diabetes (Primary Dx); Third trimester ([facility]); 31 weeks gestation of ([facility]) Social History Tobacco Use Types Packs/Day [...] nursing note reviewed. Exam conducted with a phlebotomy program coordinator present. Vitals: Estimated body mass index is 39.59 kg/m² as calculated from the following: Height as of 07/18/24: 5' 3 . Weight as of this encounter: 223 lb 8 oz. BP: 126/82 Patient's last menstrual period was 02/13/2024 (approximate). ASSESSMENT & PLAN ICD-10-CM 1. Third trimester ([facility]) Z34.93 POCT urinalysis dipstick manually resulted 2. 31 weeks gestation of ([facility]) Z3A.31 Return OB: Patient presents today [...] pm and glucose will be monitored per MF Documented by Selina Denson NP on behalf of: Saravanan Ahumada DO documented in this encounter Plan of Treatment Upcoming Encounters Date Type Department Care Team (Late st Contact Info) Description 10/02/2024 10:30 AM EDT Ancillary Procedure [facility] [address] [facility] [phone] 10/02/2024 11:00 AM EDT Routine [facility] OB [address] [facility] [place] [phone] Saravanan Ahumada, DO [address] [facility] [address] [place] [address] 07/24/2025 9:15 AM EDT Office Visit [facility] [address] [place] [phone] Scheduled Orders Name Type Priority Associated Diagnoses Orde r Schedule US biophysical profile w non stress test Imaging Routine History of gestational diabetes Expected: 09/13/2024 (Approximate), Expires: 03/15/2025 US OB follow up transabdominal approach Imaging Routine History of gestational diabetes Expected: 09/13/2024, Expires: 01/13/2025 documented as of this encounter Goals Goal Patient Goal Type Associated Problems Recent Progress Patient-Stated? Author Reminders Care Plan OB Reminders No Open Scheduling, Background documented as of this encounter Procedures Procedure Name Priority Date/Time Associated Diagnosis Comments POCT URINALYSIS DIPSTICK Routine 09/13/2024 11:56 AM EDT Third trimester ([facility]) documented in this encounter Results * POCT urinalysis dipstick manually resulted (09/13/2024 11:56 AM EDT) Color, UA Yellow Clarity, UA Clear Glucose, UA Negative Negative - 1999(110) ++++ mg/dL Bilirubin, UA Negative Negative - 4(70) +++ mg/dL Ketones, UA Negative Negative - 160(16) ++++ mg/dL Spec Grav, UA 1.020 1 - 1.03 Blood, UA Negative Negative - 50 Jorge Luis/mcL pH, UA 7.0 5 - 9 Protein, UA Negative Negative - 1999(20) ++++ mg/dL Urobilinogen, UA 0.2 0.2 - 12 mg/dL Leukocytes, UA Negative Negative - 500+++ Flori/mcL Nitrite, UA Negative Negative - Positive Urine 09/13/2024 11:5 6 AM EDT Selina Denson NP POINT OF CARE TEST ENTER/EDIT ORDERABLES Final Result documented in this encounter Visit Diagnoses Diagnosis History of gestational diabetes- Primary Personal history of other genital system and obstetric disorders Third trimester ([facility]) state, incidental 31 weeks gestation of ([facility]) documented in this encounter Additional Health Concerns Active Problems Noted Date Diagnosed Date OB Reminders 04/30/2024 documented as of this encounter Care Teams Home Health Care Social Worker Relationship Specialty Start Date End Date Omer Velazquez MD [address] [facility] [address] [place] [address] PCP - General Internal Medicine 10/05/22 documented as of this encounter
--- OUTSIDE RECORDS SUMMARY | 2024-09-20 11:00 | XMS_ITS | Encounter Summary ---
Author Organization [facility] tem Address [facility] [address] [place] [address] Care Team Providers Care Service Attendant Cafeteria Name Role Phone Unavailable Primary Care Provider Unavailabl e Encounter Details Date Type Department Care Team (Late st Contact Info) Description 09/20/2024 11:00 AM EDT Telemedicine Maternal- Medicine at [facility] [address] [place] [phone] Siria Rebolledo, SERVICE OBSERVER-DIET AIDE [address] [place] [address] Insulin controlled gestational diabetes mellitus (GDM) in third trimester (Primary Dx); Gestational diabetes requiring insulin Social History Tobacco Use Types Packs/Day Years [...] as of this encounter Progress Notes * Siria Rebolledo, SERVICE OBSERVER-DIET AIDE - 09/20/2024 11:00 AM EDT REASON FOR OFFICE VISIT: Video Visit via Real-time Synchronous Audiovisual Provider Location: [facility]- [facility] AT [address] [address] Patient Location: Patient's home Video Visit Consent Statement: I discussed risks, benefits, and alternatives of a real-time synchronous audiovisual consultation with the patient (and any accompanying persons) including the risks that the patient's personal health details and medical records will be discussed over real-time, synchronous, interactive video/audio/telecommunication technology, the visit will not be recorded withoutthe express consent of both the provider and the patient, and that there are some limitations compared to rrag-kg-zohs evaluations. The patient consented to the presence of additional virtual and/or in-person participants. We elected to proceed. 1. GDMA2; A1c 5.4% on 04/21/24 2. Mild pre-eclampsia - need f/u within 1 week on 09/27/24 with Zita HISTORY OF PRESENT ILLNESS: Lissa Rivas is a pleasant 29 y.o. at 31w3d due on Estimated Date of Delivery: 11/19/24. Currently the patient has no complaints. The patient denies KEYS, nausea, vomiting, abdominal pain, vaginal bleeding, contractions, leaking fluid or chest pain. +FM. [facility] GDMA2. States she is following meal plan as much as possible and eating evening snack. FBS - 95-105 1 HR Postprandial - 92-152 Past Medical History PAST OBSTETRICAL HISTORY: OB History 1 Para Term AB Living SAB IAB Ectopic Multiple Live Births SURGICAL HISTORY: Past Surgical History: Procedure Laterality Date EYE SURGERY ALLERGIES: No Known Allergies CURRENT MEDICATIONS: Current Outpatient Medications: blood-glucose sensor (DEXCOM G7 SENSOR) device, Use to monitor blood glucose. Change every 10 days,Disp: 5 each, Rfl: 10 fluticasone propionate (FLONASE) 50 mcg/actuation nasal spray, Administer 1 spray into each nostrilin the morning. (Patient not taking: Reported on 09/12/2024), Disp: , Rfl: insulin glargine (LANTUS SOLOSTAR U-100 INSULIN) 100 unit/mL (3 mL) insulin pen, Inject 12 units every evening. Prime with 2 units., Disp: 15 mL, Rfl: 2 medroxyPROGESTERone (PROVERA) 10 mg tablet, Take 1 tablet (10 mg total) by mouth in the morning. (Patient not taking: Reported on 09/12/2024), Disp: , Rfl: ev306-nwnn-eifgr acid ( 19) 29 mg iron- 1 mg tablet,chewable, Chew 1 tablet and swallow in the morning., Disp: , Rfl: progesterone (PROMETRIUM) 200 mg capsule, Take 1 capsule (200 mg total) by mouth in the morning. (Patient not taking: Reported on 09/12/2024), Disp: , Rfl: LABS: No results found for: GLUF , MICROALBUR , LDLCALC , CREATININE No results found for: TSH , T3 , TOTALT4 , THYROIDAB No results found for: [id number] No results found for: CREATININE , BUN , NA , K , CL , CO2 No results found for: ALT , AST , GGT , ALKPHOS , LABBILI Lab Results Component Value Date HGBA1C 5.4 04/21/2024 REVIEW OF SYSTEMS: Head and Neck: Negative for any dizziness and headaches. Cardiovascular and Respiratory System: Denies any chest pain, shortness of breath, and coughing. Abdominal and System: Denies any abdominal pain, nausea, vomiting, vaginal bleeding, and vaginal discharge PHYSICAL EXAMINATION: LMP 02/13/2024 Gravid abdomen, Alert & Oriented. Respirations not labored. DISCUSSION: Fasting levels elevated and PP mild elevations- insulin increased Recommended carbohydrate allocation ranges: 30-45 g for breakfast, 45-60 g for lunch and dinner, and 15-g snacks roughly 2-3 hours after each meal. A1c less than 6% has the lowest risk for LGA infant Pre-E s/s reviewed: BP >160/110, epigastric or RUQ ABD pain unresponsive to analgesics, neurological symptoms:vision changes, floaters, severe headache not relieved with medication, or fluid changes: reduced voids, swelling in hands, face or pitting edema encroaching up the shins, weight gain >4lbs in 1 week Delivery for pre-eclampsia recommended btw 34-37 wks SUMMARY/RECOMMENDATION: The following is a summary of our recommendations: 1. Blood work: per primary OB CMP Urine P/C ratio 2. Medication: Lantus increased to 16 units subcutaneous at bedtime Other medications as above 3. testing: Twice weekly NSTw/ weekly DVP at 32 weeks growth ultrasounds every 4 weeks starting at 28 weeks 4. Delivery: Use 1/2 dose of insulin the night before her planned delivery. GDMA2:may monitor patient's BG every 4hrs during latent labor, every 1 hr during active labor with goal BG to be less than 140mg/dl. Can use insulin sliding scale prn hyperglycemia. No need for insulin use the day of her delivery 5. Post : As she has only gestational diabetes, there is no need for glucose testing or medication after her delivery. Please obtain a 2-hour GTT directly while still hospitalized after delivery or 4-12 weeks out patient and then A1c yearly as the patient has a 20% risk of having or developing diabetes later on. 6. Follow-up appointment: In 2-3 weeks to Maternal- Medicine. I asked her to keep sending values to us weekly by e-mail to: [email or web address] or by fax to: [phone] TIME OF CONSULTATION: 20 minutes with the patient, >50% in discussion and counseling, coordination of care which was vmkk-so-znsi, review of records and communication back to referring provider. CARLOS Ford 09/20/24 1121 documented in this encounter Plan of Treatment Upcoming Encounters Date Type Department Care Team (Late st Contact Info) Description 10/11/2024 2:00 PM EDT Office Visit Maternal- Medicine at [facility] [address] [place] [phone] Siria Rebolledo APRN-CNP [address] [place] [address] 10/16/2024 2:00 PM EDT Office Visit Maternal- Medicine at [facility] [address] [place] [address] Vy Pemberton MD [address] [facility], [address] [place] [address] documented as of this encounter Visit Diagnoses Diagnosis Insulin controlled gestational diabetes mellitus (GDM) in third trimester- Primary Gestational diabetes requiring insulin Abnormal maternal glucose tolerance, complicating , childbirth, or the puerperium, unspecified as to episode of care documented in this encounter
--- OUTSIDE RECORDS SUMMARY | 2024-09-25 13:00 | XMS_ITS | Encounter Summary ---
Author Organization [facility] Address [address] [place] [address] Care Team Providers Care Transplanter Orchid Name Role Phone Omer Velazquez MD Primary Care Provider [phone] Reason for Visit * Reason Comments Routine Visit Encounter Details Date Type Department Care Team (Late st Contact Info) Description 09/25/2024 1:00 PM EDT Routine [facility] [address] [place] [phone] Saravanan Ahumada, DO [address] [facility] [place] [address] Third trimester ([facility]); Insulin controlled gestational diabetes mellitus (GDM) during , antepartum ([facility]); 32 weeks gestation of ([facility]) Social History Tobacco Use Types Packs/Day Years [...] Reading Time Taken Comments Blood Pressure 130/80 09/25/2024 1:26 PM EDT Pulse - - Temperature - - Respiratory Rate - - Oxygen Saturation - - Inhaled Oxygen Concentration - - Weight 102 kg (225 lb 8 oz) 09/25/2024 1:26 PM E DT Height - - Body Mass Index 39.95 07/18/2024 9:20 AM EDT documented in this encounter Progress Notes * Paula Rivera, LEXII - 09/25/2024 1:00 PM EDT Reason for Appointment: Patient ID: Lissa [...] 4times daily. cholecalciferol (Vitamin D-3) 50 MCG (2000 UT) tablet 2 tablets, Daily Lantus SoloStar 100 UNIT/ML pen Inject 12 [...] nursing note reviewed. Exam conducted with a personal care aide present. Vitals: Estimated body mass index is 39.95 kg/m² as calculated from the following: Height as of 07/18/24: 5' 3 . Weight as of this encounter: 225 lb 8 oz. BP: 130/80 Patient's last menstrual period was 02/13/2024 (approximate). ASSESSMENT & PLAN ICD-10-CM 1. Third trimester ([facility]) Z34.93 POCT urinalysis dipstick manually resulted 2. Insulin controlled gestational diabetes mellitus (GDM) during , antepartum ([facility]) O24.414 3. 32 weeks gestation of ([facility]) Z3A.32 Return OB: Patient presents today for a routine obstetrics appointment. Patient is currently 32w1d . Patient states she is doing well but has complaints of being tired due to current . Patient has verbalizes frequent movement. labor precautions was discussed/given and patient was instructed to perform kick counts three times a day. Pt to continue to call sugars into MFM.Pt to start NST/BPPs, and growth ultrasounds every 4 weeks. Orders Placed This Encounter Procedures POCT urinalysis dipstick manually resulted Follow Up: Patient is to return to office in 2 week for routine OB appointment. Documented by Paula Rivera LPN on behalf of: Saravanan Ahumada DO documented in this encounter Plan of Treatment Upcoming Encounters Date Type Department Care Team (Late st Contact Info) Description 10/02/2024 10:30 AM EDT Ancillary Procedure [facility] B[facility] OB [address] [place] [phone] 10/02/2024 11:00 AM EDT Routine [facility] B[facility] OB [address] [place] [address] Saravanan Ahumada DO [address] [place] [address] 07/24/2025 9:15 AM EDT Office Visit [facility] [address] [place] [address] documented as of this encounter Goals Goal Patient Goal Type Associated Problems Recent Progress Patient-Stated? Author Reminders Care Plan OB Reminders No Open Scheduling, Background documented as of this encounter Procedures Procedure Name Priority Date/Time Associated Diagnosis Comments POCT URINALYSIS DIPSTICK Routine 09/25/2024 1:34 PM EDT Third trimester ([facility]) documented in this encounter Results * (ABNORMAL) POCT urinalysis dipstick manually resulted (09/25/2024 1:34 PM EDT) Color, UA Yellow Clarity, UA Clear Glucose, UA Negative Negative - 2000(110) ++++ mg/dL Bilirubin, UA Negative Negative - 4(70) +++ mg/dL Ketones, UA Positive Negative - 160(16) ++++ mg/dL Comment:15mg/dL Spec Grav, UA 1.020 1 - 1.03 Blood, UA Negative Negative - 50 Jorge Luis/mcL pH, UA 7.0 5 - 9 Protein, UA Positive Negative - 2000(20) ++++ mg/dL Comment:30mg/dL Urobilinogen, UA 0.2 0.2 - 12 mg/dL Leukocytes, UA Negative Negative - 500+++ Flori/mcL Nitrite, UA Negative Negative - Positive Urine 09/25/2024 1:34 PM EDT Saravanan Zita DO POINT OF CARE TEST ENTER/EDIT OR DERABLES Final Result documented in this encounter Visit Diagnoses Diagnosis Third trimester ([facility]) state, incidental Insulin controlled gestational diabetes mellitus (GDM) during , antepartum ([facility]) 32 weeks gestation of ([facility]) documented in this encounter Additional Health Concerns Active Problems Noted Date Diagnosed Date OB Reminders 04/30/2024 documented as of this encounter Care Teams Transplanter Orchid Relationship Specialty Start Date End Date Omer Velazquez MD [address] [place] [address] PCP - General Internal Medicine 10/05/22 documented as of this encounter
--- OUTSIDE RECORDS SUMMARY | 2024-09-30 09:02 | XMS_ITS | Encounter Summary ---
Author Organization [facility] Address [address] [place] [address] Care Team Providers Care Electrician Rectifier Maintenance Name Role Phone Lito Guerrero MD Primary Care Provider [phone] Encounter Details Date Type Department Care Team (Late Contact Info) Description 09/27/2024 Clinisync Result Encounter [facility] External Department Unsolicited Provider, Generic External Data Social History Tobacco Use Types Packs/Day Years [...] Department Care Team (Late Contact Info) Description 10/02/2024 10:30 AM EDT Ancillary Procedure [facility] B[facility] OB [address] [facility] [place] [address] 10/02/2024 11:00 AM EDT Routine [facility] OB [address] [place] [phone] Saravanan Ahumada, DO [address] [facility] [place] [address] 07/24/2025 9:15 AM EDT Office Visit [facility] [address] [place] [phone] documented as of this encounter Goals Goal Patient Goal Type Associated Problems Recent Progress Patient-Stated? Author Reminders Care Plan OB Reminders No Open Scheduling, Background documented as of this encounter Procedures Procedure Name Priority Date/Time Associated Diagnosis Comments US OB BPP W NON-STRESS 09/27/2024 5:08 PM EDT documented in this encounter Results * US OB BPP W NON-STRESS (09/27/2024 5:08 PM EDT) Anatomical Region Laterality Modality Other 09/27/2024 5:08 PM EDT Narrative 09/27/2024 5:11 PM EDT [address] [address] Ultrasound Report Signed Patient: LITO ROJAS MR#: [id number] : 1995 Acct:[id number] Age/Sex: 29 / F ADM Date: 09/27/24 Loc: [facility] 250-[address]: Saravanan Ahumada D.O. Ordering Physician: Saravanan Ahumada D.O. Date of Service: 09/27/24 Procedure(s): US OB BPP w non-stress Accession Number(s): [id number] cc: Saravanan Ahumada D.O.; LITO GUERRERO [address] [address] Patient Name: LITO ROJAS MRN: [facility]:[id number] date: 1995 Sex: F Assigned Patient Location: [facility] Current Patient Location: [facility] Accession/Order Number: [id number] Exam Date: 09/27/2024 17:07 Report Date: 09/27/2024 17:08 At the request of: SARAVANAN AHUMADA DO Procedure: US OB BPP w non-stress Biophysical profile. Reason for exam: Gestational diabetes. COMPARISON: None. TECHNIQUE: Transabdominal imaging of the gravid uterus was obtained. FINDINGS: The driver medic reports the biophysical profile of 8 out of 8. RAKESH is normal at 18.6 cm. heart rate 145 bpm. US/US OB BPP w non-stress IMPRESSION: BPP 8 out of 8. Impression dictated by: Navjot Harmon Jr., D.O. 09/27/2024 5:08 PM Dictation Location: [place] [address] Electronically authenticated by: [id number] Y Date: 09/27/2024 17:08 Dictated By: Navjot Harmon M.D. Signed By: 09/27/24 1711 DD/ 1708 TD/TT: Carpet Yarn Winder Operator: Procedure Note Radiology, Radiologist, - 09/27/2024 [place] [address] Ultrasound Report Signed Patient: LITO ROJAS FMR#: [id number] : 1995Acct:[id number] Age/Sex: 29 / FADM Date: 09/27/24 Loc: [facility] 250-[address]: Saravanan Ahumada D.O. Ordering Physician: Saravanan Ahumada D.O. Date of Service: 09/27/24 Procedure(s): US OB BPP w non-stress Accession Number(s): [id number] cc: Saravanan Ahumada D.O.; LITO GUERRERO [place] [id number] Patient Name: LITO ROJAS MRN: [facility]:[id number] date: 1995 Sex: F Assigned Patient Location: [facility] Current Patient Location: [facility] Accession/Order Number: [id number] Exam Date: 09/27/2024 17:07 Report Date: 09/27/2024 17:08 At the request of: SARAVANAN AHUMADA DO Procedure: US OB BPP w non-stress Biophysical profile. Reason for exam: Gestational diabetes. COMPARISON: None. TECHNIQUE: Transabdominal imaging of the gravid uterus was obtained. FINDINGS: The driver medic reports the biophysical profile of 8 out of 8.RAKESH is normal at 18.6 cm. heart rate 145 bpm. US/US OB BPP w non-stress IMPRESSION: BPP 8 out of 8. Impression dictated by: Navjot Harmon Jr., D.O. 09/27/2024 5:08 PM Dictation Location: [place] [address] Electronically authenticated by: [id number] Y Date: 7:08 Dictated By: Navjot Harmon M.D. Signed By:09/27/24 1711 DD/ 1708 TD/TT: Carpet Yarn Winder Operator: us Generic External Data Provider [facility] Final Result documented in this encounter Visit Diagnoses Not on filedocumented in this encounter Additional Health Concerns Active Problems Noted Date Diagnosed Date OB Reminders 04/30/2024 documented as of this encounter Care Teams Electrician Rectifier Maintenance Relationship Specialty Start Date End Date Lito Guerrero MD [address] [facility] [address] [place] [address] PCP - General Internal Medicine 10/05/22 documented as of this encounter
--- OUTSIDE RECORDS SUMMARY | 2024-09-30 09:02 | XMS_ITS | Encounter Summary ---
Author Organization [facility] Address [address] [place] [address] Care Team Providers Care Photo Offset Printer Name Role Phone Robles Goldsmith DO Unavailable [phone] Josefina Harris RN Unavailable [phone] Source Comments In the event this information is protected by the Federal Confidentiality of Alcohol and Drug AbusePatient Records regulations: The Federal rules restrict any use of the information to criminally investigate or prosecute any alcohol or drug abuse patient.[facility] Encounter Details Date Type Department Care Team (Late st Contact Info) Description 03/23/2023 Patient Msg [address] [address] Provider, Ccf Appointment Reschedule Social History Tobacco [...] on filedocumented in this encounter Care Teams Photo Offset Printer Relationship Specialty Start Date End Date Robles Goldsmith DO [address] [facility] [address] [place] [address] Referring Obstetrics 10/13/22 Josefina Harris, ARIC [address] [place] [address] Specialty Wet Finisher 04/12/24 documented as of this encounter
--- OUTSIDE RECORDS SUMMARY | 2024-09-30 09:02 | XMS_ITS | Encounter Summary ---
Author Organization [facility] Address [address] [place] [address] Care Team Providers Care Administrative Assistant Data Entry Name Role Phone Robles Goldsmith DO Unavailable [phone] Josefina Harris RN Unavailable [phone] Source Comments In the event this information is protected by the Federal Confidentiality of Alcohol and Drug AbusePatient Records regulations: The Federal rules restrict any use of the information to criminally investigate or prosecute any alcohol or drug abuse patient.[facility] Encounter Details Date Type Department Care Team (Latest Contact Info) Description 05/25/2023 Patient Msg Reproductive Endocrinology Infertility [address] [place] [address] Shaina Parr MD [address] [place], [place] [phone] Appointment Request Social History Tobacco Use Types [...] on filedocumented in this encounter Care Teams Administrative Assistant Data Entry Relationship Specialty Start Date End Date Robles Goldsmith DO [address] [facility] [address] [place] [address] Referring Obstetrics 10/13/22 [place] [address] [place] [address] Specialty Garland Maker 04/12/24 documented as of this encounter
--- OUTSIDE RECORDS SUMMARY | 2024-09-30 09:03 | XMS_ITS | Encounter Summary ---
Author Organization [facility] Address [address] [place] [address] Care Team Providers Care Mems Process Engineer Name Role Phone Omer Velazquez MD Primary Care Provider [phone] Encounter Details Date Type Department Care Team (Late st Contact Info) Description 06/19/2024 Abstract [facility] [address] [place] [address] Saravanan Ahumada, DO [address] [place], [facility]11 Social History Tobacco Use Types Packs/Day [...] EDT Ancillary Procedure [facility] [address] [facility] [place] [address] 10/02/2024 11:00 AM EDT Routine [facility] OB [address] [facility] [place] [address] Saravanan Ahumada, DO [address] [facility] [place] [address] 07/24/2025 9:15 AM EDT Office Visit [facility] [address] [place] [address] documented as of this encounter Goals Goal Patient Goal Type Associated Problems Recent Progress Patient-Stated? Author Reminders Care Plan OB Reminders No Open Scheduling, Background documented as of this encounter Visit Diagnoses Not on filedocumented in this encounter Additional Health Concerns Active Problems Noted Date Diagnosed Date OB Reminders 04/30/2024 documented as of this encounter Care Teams Mems Process Engineer Relationship Specialty Start Date End Date Omer Velazquez MD [address] [place] [address] PCP - General Internal Medicine 10/05/22 documented as of this encounter
--- OUTSIDE RECORDS SUMMARY | 2024-09-30 09:03 | XMS_ITS | Clinical Summary ---
Author Organization [facility] Address [address] [place] [address] Care Team Providers Care Tray Drier Name Role Phone Robles Goldsmith Benitez DO Unavailable [phone] Josefina Harris RN Unavailable [phone] Allergies No known active allergies Medications [...] Encounters Date Type Department Care Team Description 09/26/2024 Results Follow-Up Endocrinology [address] [place] [address] Mirta Valderrama MD 09/11/2024 9:00 AM EDT [facility] Endocrinology [address] [place] [address] Mirta Valderrama MD Monoallelic mutation of SDHA gene (Primary Dx); Gestational diabetes mellitus (GDM) in third trimester, gestational diabetes method of control unspecified (HCC) 09/11/2024 Travel 09/05/2024 1:45 PM EDT Office Visit Otolarynogology [address] [place] [address] Franklin Laboy MD Monoallelic mutation of SDHA gene (Primary Dx) 09/05/2024 Travel from Last 3 Months Family History Medical [...] is lower risk 4 12/21/2023 Data from: https://www.neighborhoodatlas.medicine.[facility].edu/. Last address used for calculation [address] [place] [address] Rd 12/21/2023 Comments Yes Sex and Gender [...] Vaccine (2023-2 5 season) 2023 Influenza Vaccine (#1) 2024 01/30/2015, 2008 DTaP,Tdap,Td Vaccine (7 - Td or Tdap) 06/26/2032 06/26/2022, 08/10/2000, 08/04/1996, Additional history exists RSV Vaccine (1 - 1-dose 75+ series) 2070 Hepatitis B Vaccine Completed 03/17/1996, 1995, 1995 HIV Screening Completed 09/13/2023 Hepatitis C Screening Completed 09/13/2023 Procedures Procedure Name Priority Date/Time Associated Diagnosis Comments METANEPHRINES, FREE PLASMA Routine 09/04/2024 12:19 PM EDT Monoallelic mutation of SDHA gene HIV 1/2 COMBO WITH REFLEX TO DIFFERENTIATION Routine 09/13/2023 8:52 AM EDT Screen for sexually transmitted diseases HEPATITIS C ANTIBODY IA WITH CONFIRMATION Routine 09/13/2023 8:52 AM EDT Screen for sexually transmitted diseases from Last 3 Months or Most Recently Relevant to Health Maintenance Results * METANEPHRINES, FREE PLASMA (09/04/2024 12:19 PM EDT) Metanephrine, Plasma 19 12 - 67 pg/mL 09/19/2024 2:41 PM EDT [facility] Comment: Reference Ranges: Hypertensive adult > or = 18 yrs old: 12-72 pg/mL Normotensive adult > or = 18 yrs old: 12-67 pg/mL Normotensive children < 18 yrs old: 10-95 pg/mL Normetanephrine, Plasma 56 18 - 101 pg/mL 09/19/2024 2:41 PM EDT [facility] Comment: Reference Ranges: Hypertensive adult > or = 18 yrs old: 24-145 pg/mL Normotensive adult > or = 18 yrs old: 18-101 pg/mL Normotensive children < 18 yrs old: 22-83 pg/mL Methyldopa may cause false elevation of normetanephrine levels in this assay. If patient is on methyldopa, interpret results with caution. Blood BLOOD SPECIMEN / Unknown Venipuncture / Unknown 09/04/2024 12:19 PM EDT 09/04/2024 12:19 PM EDT [facility] - 09/19/2024 2:41 PM EDT Plasma Free Metanephrine test performed by Liquid Chromatography Tandem Mass Spectrometry (LC/MS/MS). Results obtained with different methods or kits cannot be used interchangeably. This test was developed, and its performance characteristics determined by the [facility] Department of Pathology and Laboratory Medicine. It has not been cleared or approved by the FDA. The [facility] Department of Pathology and Laboratory Medicine is regulated under CLIA as qualified to perform high- complexity testing. This test is used for clinical purposes. It should not be regarded as investigational or for research. us Mirta Valderrama MD LABORATORY Final Result [facility] [address] [place] [address], * HIV 1/2 COMBO WITH REFLEX TO DIFFERENTIATION (09/13/2023 8:52 AM EDT) HIV 12 Combo (Ag/Ab) Nonreactive Nonreactive 09/13/2023 9:15 PM EDT [facility] HIV-1/2 AB (Confirmatory) 09/13/2023 9:15 PM EDT [facility] Comment:Test not indicated. HIV Interpretation 09/13/2023 9:15 PM EDT [facility] Comment: No evidence of HIV-1 or HIV-2 infection. Should recent infection be suspected, repeat testing may be considered 2-3 weeks after this draw. [place] Rev. Code 3701.243(E): This information has been [...] EDT 09/13/2023 8:52 AM EDT Haritha Casiano APRN.[facility] Final R esult Performing Organization Address City/[facility]/ZIP Co de Phone Number [facility] [place] [place] [address], * HEPATITIS C ANTIBODY IA WITH CONFIRMATION (09/13/2023 8:52 AM EDT) Hep C Antibody IA Negative Negative 09/13/2023 9:06 PM EDT [facility] Comment:The result suggests no evidence of active infection with Hepatitis C virus. Should recent infection be suspected, repeat testing may be considered 4-6 weeks after this draw. Blood BLOOD SPECIMEN / Unknown Venipuncture / Unknown 09/13/2023 8:52 AM EDT 09/13/2023 8:52 AM EDT Haritha Casiano APRN.[facility] Final R esult Performing Organization Address City/[facility]/ZIP Co de Phone Number [facility] [address] [place] [address], from Last 3 Months or Most Recently Relevant to Health Maintenance Insurance [address] [place] [address] [employer] [facility] PPO Care Teams Tray Drier Relationship Specialty Start Date End Date Robles Goldsmith DO [address] [place] [address] Referring Obstetrics 10/13/22 Josefina Harris, ARIC [address] [place] [address] Specialty Tube Sizer Operator 04/12/24
--- OUTSIDE RECORDS SUMMARY | 2024-09-30 09:03 | XMS_ITS | Encounter Summary ---
Author Organization [facility] Address [address] [place] [address] Care Team Providers Care Filterer Name Role Phone Robles Goldsmith DO Unavailable [phone] Josefina Harris RN Unavailable [phone] Source Comments In the event this information is protected by the Federal Confidentiality of Alcohol and Drug AbusePatient Records regulations: The Federal rules restrict any use of the information to criminally investigate or prosecute any alcohol or drug abuse patient.[facility] Encounter Details Date Type Department Care Team (Latest Contact Info) Description 02/23/2023 Get Medical Advice Reproductive Endocrinology Infertility [address] [place] [address] Shaina Parr MD [address] [place], [place] [phone] Fax blood work order Social History Tobacco [...] on filedocumented in this encounter Care Teams Filterer Relationship Specialty Start Date End Date Robles Goldsmith DO [address] [facility] [address] [place] [address] Referring Obstetrics 10/13/22 [place] [address] [place] [address] Specialty Director Medicare Sales 04/12/24 documented as of this encounter
--- OUTSIDE RECORDS SUMMARY | 2024-09-30 09:03 | XMS_ITS | Encounter Summary ---
Author Organization [facility] Address [address] [place] [address] Care Team Providers Care Field Crop I Farmworker Name Role Phone Omer Velazquez MD Primary Care Provider [phone] Encounter Details Date Type Department Care Team (Late st Contact Info) Description 06/07/2024 Abstract [facility] [address] [place] [address] Saravanan Ahumada, DO [address] [place] [address] Social History Tobacco Use Types Packs/Day Years [...] EDT Ancillary Procedure [facility] OB [address] [facility] [place] [address] 10/02/2024 11:00 AM EDT Routine [facility] OB [address] [facility] [place] [address] Saravanan Ahumada, DO [address] [facility] [place] [address] 07/24/2025 9:15 AM EDT Office Visit [facility] [address] [place] [address] documented as of this encounter Goals Goal Patient Goal Type Associated Problems Recent Progress Patient-Stated? Author Reminders Care Plan OB Reminders No Open Scheduling, Background documented as of this encounter Visit Diagnoses Not on filedocumented in this encounter Additional Health Concerns Active Problems Noted Date Diagnosed Date OB Reminders 04/30/2024 documented as of this encounter Care Teams Field Crop I Farmworker Relationship Specialty Start Date End Date Omer Velazquez MD [address] [place] [address] PCP - General Internal Medicine 10/05/22 documented as of this encounter
--- OUTSIDE RECORDS SUMMARY | 2024-09-30 09:03 | XMS_ITS | Encounter Summary ---
Author Organization [facility] Address [address] [place] [address] Care Team Providers Care Clutch Rebuilder Name Role Phone Robles Goldsmith DO Unavailable [phone] Josefina Harris RN Unavailable [phone] Source Comments In the event this information is protected by the Federal Confidentiality of Alcohol and Drug AbusePatient Records regulations: The Federal rules restrict any use of the information to criminally investigate or prosecute any alcohol or drug abuse patient.[facility] Encounter Details Date Type Department Care Team (Late st Contact Info) Description 07/21/2023 Get Medical Advice [facility] [address] [place], [place] [phone] [place], [place] [address] [place] [address] referral for genetics testing Social [...] on filedocumented in this encounter Care Teams Clutch Rebuilder Relationship Specialty Start Date End Date Robles Goldsmith DO [address] [address] Referring Obstetrics 10/13/22 [place] [address] [place] [address] Specialty Spring Fitter Helper 04/12/24 documented as of this encounter
--- OUTSIDE RECORDS SUMMARY | 2024-09-30 09:03 | XMS_ITS | Encounter Summary ---
Author Organization [facility] Address [address] [place] [address] Care Team Providers Care Strategy Analyst Name Role Phone Robles Goldsmith DO Unavailable [phone] Josefina Harris RN Unavailable [phone] Source Comments In the event this information is protected by the Federal Confidentiality of Alcohol and Drug AbusePatient Records regulations: The Federal rules restrict any use of the information to criminally investigate or prosecute any alcohol or drug abuse patient.[facility] Encounter Details Date Type Department Care Team (Late st Contact Info) Description 03/24/2024 Patient [facility] -[address] [place] [address] Cee Palafox RPh At your next appointment, choose [facility]. Social History Tobacco Use [...] is lower risk 4 12/21/2023 Data from: https://www.neighborhoodatlas.medicine.[facility].edu/. Last address used for calculation [address] [place] [address] 12/21/2023 Comments Yes Sex and Gender Information Value Date Recorded Sex Assigned at Female 01/04/2023 6:38 PM EDT Legal Sex Female 10:39 AM EDT Gender Identity Female 01/04/2023 6:38 PM EDT Sexual Orientation Not on file documented as of this encounter Plan of Treatment Not on file documented as of this encounter Visit Diagnoses Not on filedocumented in this encounter Care Teams Strategy Analyst Relationship Specialty Start Date End Date Robles Goldsmith DO [address] [facility] [address] [place] [address] Referring Obstetrics 10/13/22 [place] [address] [place] [address] Specialty Unit Educator 04/12/24 documented as of this encounter
--- OUTSIDE RECORDS SUMMARY | 2024-09-30 09:03 | XMS_ITS | Encounter Summary ---
Author Organization [facility] Address [address] [place] [address] Care Team Providers Care Clinical Admissions Manager Name Role Phone Robles Goldsmith DO Unavailable [phone] Josefina Harris RN Unavailable [phone] Source Comments In the event this information is protected by the Federal Confidentiality of Alcohol and Drug AbusePatient Records regulations: The Federal rules restrict any use of the information to criminally investigate or prosecute any alcohol or drug abuse patient.[facility] Encounter Details Date Type Department Care Team (Late st Contact Info) Description 2024 Patient Msg Reproductive Endocrinology Infertility [address] [facility] [address] [place], [place] [phone] Haritha Casiano APRN.PHYSICAL EDUCATION AIDE [address] [facility] [address] Congratulations!!! Social History Tobacco Use Types Packs/Day [...] is lower risk 4 12/21/2023 Data from: https://www.neighborhoodatlas.[facility].edu/. Last address used for calculation [address] 12/21/2023 Comments Yes Sex and [...] on filedocumented in this encounter Care Teams Clinical Admissions Manager Relationship Specialty Start Date End Date Robles Goldsmith DO [address] [place] [address] Referring Obstetrics 10/13/22 [place] [address] [address] [place], [place] [phone] Specialty Creeler 04/12/24 documented as of this encounter
--- OUTSIDE RECORDS SUMMARY | 2024-09-30 09:03 | XMS_ITS | Encounter Summary ---
Author Organization [facility] Address [address] [place] [address] Care Team Providers Care Schedule Hanger Name Role Phone Omer Velazquez MD Primary Care Provider [phone] Encounter Details Date Type Department Care Team (Late st Contact Info) Description 05/22/2024 Abstract [facility] B[facility] OB [address] [place] [address] Saravanan Ahumada, DO [address] [place], [facility]11 Social History Tobacco Use Types [...] EDT Ancillary Procedure [facility] BCP OB [address] [facility] [place] [address] 10/02/2024 11:00 AM EDT Routine [facility] B[facility] OB [address] [facility] [place] [address] Saravanan Ahumada, DO [address] [facility] [place] [address] 07/24/2025 9:15 AM EDT Office Visit [facility] [address] [place] [address] documented as of this encounter Goals Goal Patient Goal Type Associated Problems Recent Progress Patient-Stated? Author Reminders Care Plan OB Reminders No Open Scheduling, Background documented as of this encounter Visit Diagnoses Not on filedocumented in this encounter Additional Health Concerns Active Problems Noted Date Diagnosed Date OB Reminders 04/30/2024 documented as of this encounter Care Teams Schedule Hanger Relationship Specialty Start Date End Date Omer Velazquez MD [address] [place] [address] PCP - General Internal Medicine 10/05/22 documented as of this encounter
--- OUTSIDE RECORDS SUMMARY | 2024-09-30 09:03 | XMS_ITS | Encounter Summary ---
Author Organization [facility] Address [address] [place] [address] Care Team Providers Care Revenue Cycle Specialist Name Role Phone Robles Goldsmith DO Unavailable [phone] Josefina Harris RN Unavailable [phone] Source Comments In the event this information is protected by the Federal Confidentiality of Alcohol and Drug AbusePatient Records regulations: The Federal rules restrict any use of the information to criminally investigate or prosecute any alcohol or drug abuse patient.[facility] Encounter Details Date Type Department Care Team (Late st Contact Info) Description 11/22/2023 Patient Msg Reproductive Endocrinology Infertility [address] [place], [place] [phone] Provider, Ccf plan for 11/22/23 Social History [...] on filedocumented in this encounter Care Teams Revenue Cycle Specialist Relationship Specialty Start Date End Date Robles Goldsmith DO [address] [facility] [address] [place] [address] Referring Obstetrics 10/13/22 [place] [address] [place] [address] Specialty Filer And Sander 04/12/24 documented as of this encounter
--- OUTSIDE RECORDS SUMMARY | 2024-09-30 09:03 | XMS_ITS | Encounter Summary ---
Author Organization [facility] Address [address] [place] [address] Care Team Providers Care Tool And Die Machinist Name Role Phone Robles Goldsmith DO Unavailable [phone] Josefina Harris RN Unavailable [phone] Source Comments In the event this information is protected by the Federal Confidentiality of Alcohol and Drug AbusePatient Records regulations: The Federal rules restrict any use of the information to criminally investigate or prosecute any alcohol or drug abuse patient.[facility] Encounter Details Date Type Department Care Team (Late st Contact Info) Description 01/25/2023 Patient Msg Reproductive Endocrinology Infertility [address] [place] [address] Shaina Edge MD [facility] [place] [phone] MyRiad results Social History Tobacco Use Types [...] on filedocumented in this encounter Care Teams Tool And Die Machinist Relationship Specialty Start Date End Date Robles Goldsmith DO [address] [facility] [address] [place] [address] Referring Obstetrics 10/13/22 [place] [address] [place] [address] Specialty Room Service Supervisor 04/12/24 documented as of this encounter
--- OUTSIDE RECORDS SUMMARY | 2024-09-30 09:03 | XMS_ITS | Encounter Summary ---
Author Organization [facility] Address [address] [place] [address] Care Team Providers Care Framing Carpenter Name Role Phone Omer Velazquez MD Primary Care Provider [phone] Encounter Details Date Type Department Care Team (Late st Contact Info) Description 09/25/2024 Telephone [facility] [address] [place] [address] Saravanan Ahumada, DO [address] [place], [facility]11 Social History Tobacco Use Types Packs/Day [...] encounter Miscellaneous Notes * Telephone Encounter - Quyen Paulson LPN - 09/25/2024 2:37 PM EDT Patient called asking when she should start taking her Valtrax and she was advised at 32 weeks. Patient states that she is this now and will start taking. documented in this encounter Plan of Treatment Upcoming Encounters Date Type Department Care Team (Late st Contact Info) Description 10/02/2024 10:30 AM EDT Ancillary Procedure [facility] BCP OB [address] [facility] [address] 10/02/2024 11:00 AM EDT Routine [facility] BCP OB [address] [facility] [place] [address] Saravanan Ahumada, DO [address] [facility] [place] [address] 07/24/2025 9:15 AM EDT Office Visit [facility] [address] [place] [address] documented as of this encounter Goals Goal Patient Goal Type Associated Problems Recent Progress Patient-Stated? Author Reminders Care Plan OB Reminders No Open Scheduling, Background documented as of this encounter Visit Diagnoses Not on filedocumented in this encounter Additional Health Concerns Active Problems Noted Date Diagnosed Date OB Reminders 04/30/2024 documented as of this encounter Care Teams Framing Carpenter Relationship Specialty Start Date End Date Omer Velazquez MD [address] [place] [address] PCP - General Internal Medicine 10/05/22 documented as of this encounter
--- OUTSIDE RECORDS SUMMARY | 2024-09-30 09:03 | XMS_ITS | Encounter Summary ---
Author Organization [facility] Address [address] [place] [address] Care Team Providers Care Cloth Opener Hand Name Role Phone Omer Velazquez MD Primary Care Provider [phone] Encounter Details Date Type Department Care Team (Late st Contact Info) Description 06/19/2024 Abstract [facility] [address] [place] [address] Saravanan Ahumada, DO [address] [place], [facility] Social History Tobacco Use Types Packs/Day [...] EDT Ancillary Procedure [facility] [address] [place] [address] 10/02/2024 11:00 AM EDT Routine [facility] [address] [place] [address] Saravanan Ahumada, DO [address] [facility] [place] [address] 07/24/2025 9:15 AM EDT Office Visit [facility] [address] [place] [address] documented as of this encounter Goals Goal Patient Goal Type Associated Problems Recent Progress Patient-Stated? Author Reminders Care Plan OB Reminders No Open Scheduling, Background documented as of this encounter Visit Diagnoses Not on filedocumented in this encounter Additional Health Concerns Active Problems Noted Date Diagnosed Date OB Reminders 04/30/2024 documented as of this encounter Care Teams Cloth Opener Hand Relationship Specialty Start Date End Date Omer Velazquez MD [address] [place] [address] PCP - General Internal Medicine 10/05/22 documented as of this encounter
--- OUTSIDE RECORDS SUMMARY | 2024-09-30 09:03 | XMS_ITS | Encounter Summary ---
Author Organization [facility] Address [address] [place] [address] [place] [address] Care Team Providers Care Degree Clerk Name Role Phone Omer Velazquez MD Primary Care Provider [phone] Encounter Details Date Type Department Care Team (Late st Contact Info) Description 08/24/2024 External Result Encounter [facility] External Department Unsolicited Jie Mccarthy, STONE AND PLATE PREPARER APPRENTICE [address] [place] [address] Social History Tobacco Use Types Packs/Day Years [...] [facility] [place] [address] 10/02/2024 11:00 AM EDT Routine [facility] OB [address] [facility] [place] [place] [address] Saravanan Ahumada, DO [address] [facility] [place] [address] 07/24/2025 9:15 AM EDT Office Visit [facility] [address] [facility] [place] [address] documented as of this encounter Goals Goal [...] PM EDT Narrative 08/24/2024 6:36 PM EDT [facility] Main [address] [address] Echocardiogram Signed Patient: Lissa Rivas MR#: [id number] : 1995 Acct:[id number] Age/Sex: 29 / F ADM Date: 08/24/24 Loc: Room: Type: [facility] Attending Dr: Jie Mccarthy RN, MSN, ANP-C [...] 1239 Signed By: Iveth Ding MD 08/24/24 1245 Procedure Note Iveth Ding MD - 08/24/2024 [facility] [place] [address] Echocardiogram Signed Patient: Lissa Rivas FMR#: [id number] : 1995Acct:[id number] Age/Sex: M Date: 08/24/24 Loc: Room:Type: [facility] Attending Dr: Jie Mccarthy RN, MSN, ANP-C [...] on: 08/24/2024,: : 6:35 PM: Transcribed By: SCV Performed At: 08/24/24 5405 Signed By: Iveth Ding MD 08/24/24 1636 us Jie Mccarthy STONE AND PLATE PREPARER APPRENTICE CV ECHO PROCEDURES Final Res ult documented in this encounter Visit Diagnoses Not on filedocumented in this encounter Additional Health Concerns Active Problems Noted Date Diagnosed Date OB Reminders 04/30/2024 documented as of this encounter Care Teams Degree Clerk Relationship Specialty Start Date End Date Omer Velazquez MD [address] [facility] 230 [place] [address] PCP - General Internal Medicine 10/05/22 documented as of this encounter
--- OUTSIDE RECORDS SUMMARY | 2024-09-30 09:03 | XMS_ITS | Encounter Summary ---
Author Organization [facility] Address [address] [place] [address] Care Team Providers Care Industrial Maintenance Technician Name Role Phone Robles Goldsmith DO Unavailable [phone] Josefina Harris RN Unavailable [phone] Source Comments In the event this information is protected by the Federal Confidentiality of Alcohol and Drug AbusePatient Records regulations: The Federal rules restrict any use of the information to criminally investigate or prosecute any alcohol or drug abuse patient.[facility] Encounter Details Date Type Department Care Team (Latest Contact Info) Description 11/19/2023 Patient Msg Reproductive Endocrinology Infertility [address] [place] [address] Shaina Parr MD [address] [place], [place] [id number] Appointment Request Social History Tobacco Use Types [...] on filedocumented in this encounter Care Teams Industrial Maintenance Technician Relationship Specialty Start Date End Date Robles Goldsmith DO [address] [facility] [address] [place] [address] Referring Obstetrics 10/13/22 [place] [address] [place] [address] Specialty Stitcher Set Up Operator Automatic 04/12/24 documented as of this encounter
--- OUTSIDE RECORDS SUMMARY | 2024-09-30 09:03 | XMS_ITS | Encounter Summary ---
Author Organization [facility] Address [address] [place] [address] Care Team Providers Care Thread Marker Name Role Phone Omer Velazquez MD Primary Care Provider [phone] Encounter Details Date Type Department Care Team (Late st Contact Info) Description 05/23/2024 Abstract [facility] [address] [facility] [address] Kayla Ashley LPN Social History Tobacco [...] EDT Ancillary Procedure [facility] OB [address] [facility] [address] 10/02/2024 11:00 AM EDT Routine [facility] OB [address] [facility] [address] Saravanan Ahumada, DO [address] [place] [address] [place] [address] 07/24/2025 9:15 AM EDT Office Visit [facility] [address] [facility] 230 [place] [address] documented as of this encounter Goals Goal Patient Goal Type Associated Problems Recent Progress Patient-Stated? Author Reminders Care Plan OB Reminders No Open Scheduling, Background documented as of this encounter Visit Diagnoses Not on filedocumented in this encounter Additional Health Concerns Active Problems Noted Date Diagnosed Date OB Reminders 04/30/2024 documented as of this encounter Care Teams Thread Marker Relationship Specialty Start Date End Date Omer Velazquez MD [address] [place] [address] PCP - General Internal Medicine 10/05/22 documented as of this encounter
--- OUTSIDE RECORDS SUMMARY | 2024-09-30 09:03 | XMS_ITS | Encounter Summary ---
Author Organization [facility] Address [address] [place] [address] Care Team Providers Care Oncologist Name Role Phone Omer Velazquez MD Primary Care Provider [phone] Encounter Details Date Type Department Care Team (Late st Contact Info) Description 05/19/2024 Telephone [facility] OB [address] [employer] [place] [address] Gaye Hollis LPN [address] [employer] [place] [id number] Social History Tobacco Use Types Packs/Day Years [...] Miscellaneous Notes * Telephone Encounter - Gaye HollisLEXII - 05/19/2024 10:30 AM EST Pt called [...] 10/02/2024 10:30 AM EDT Ancillary Procedure [facility] OB [address] [place] [address] [place] [address] 10/02/2024 11:00 AM EDT Routine [facility] OB [address] [place] [address] [place] [address] Saravanan Ahumada, DO [address] [facility] [place] [address] 07/24/2025 9:15 AM EDT Office Visit [facility] [address] [place] [address] Scheduled Orders Name Type Priority Associated Diagnoses [...] documented as of this encounter Care Teams Oncologist Relationship Specialty Start Date End Date Omer Velazquez MD [address] [place] [address] PCP - General Internal Medicine 10/05/22 documented as of this encounter
--- OUTSIDE RECORDS SUMMARY | 2024-09-30 09:03 | XMS_ITS | Encounter Summary ---
Author Organization [facility] Address [address] [place] [address] Care Team Providers Care Spring Manufacturing Set Up Technician Name Role Phone Robles Goldsmith DO Unavailable [phone] Josefina Harris RN Unavailable [phone] Source Comments In the event this information is protected by the Federal Confidentiality of Alcohol and Drug AbusePatient Records regulations: The Federal rules restrict any use of the information to criminally investigate or prosecute any alcohol or drug abuse patient.[facility] Encounter Details Date Type Department Care Team (Late st Contact Info) Description 01/05/2023 Patient Msg Reproductive Endocrinology Infertility [address] [place], [place] [phone] Provider, Alli Received Voicemail Social History Tobacco [...] on filedocumented in this encounter Care Teams [employer] Manufacturing Set Up Technician Relationship Specialty Start Date End Date Robles Goldsmith DO [address] [facility] [address] [place] [address] Referring Obstetrics 10/13/22 [place] [address] [place] [address] Specialty Retail Delivery Driver 04/12/24 documented as of this encounter
--- OUTSIDE RECORDS SUMMARY | 2024-09-30 09:03 | XMS_ITS | Encounter Summary ---
Author Organization [facility] Address [address] [place] [address] Care Team Providers Care Standard Machine Stitcher Name Role Phone Robles Goldsmith DO Unavailable [phone] Josefina Harris RN Unavailable [phone] Source Comments In the event this information is protected by the Federal Confidentiality of Alcohol and Drug AbusePatient Records regulations: The Federal rules restrict any use of the information to criminally investigate or prosecute any alcohol or drug abuse patient.[facility] Encounter Details Date Type Department Care Team (Late st Contact Info) Description 02/04/2023 Patient Msg Reproductive Endocrinology Infertility [address] [place] [address] Haritha Casiano APRN.COSTING ANALYST [address] [facility] [facility] [place] [address] Next steps Social History Tobacco Use Types [...] on filedocumented in this encounter Care Teams Standard Machine Stitcher Relationship Specialty Start Date End Date Robles Goldsmith DO [address] [facility] [address] [place] [address] Referring Obstetrics 10/13/22 [place] [address] [place] [address] Specialty Cds Sales Advisor 04/12/24 documented as of this encounter
--- OUTSIDE RECORDS SUMMARY | 2024-09-30 09:03 | XMS_ITS | Encounter Summary ---
Author Organization [facility] Address [address] [place] [address] Care Team Providers Care Funeral Assistant Name Role Phone Omer Velazquez MD Primary Care Provider [phone] Encounter Details Date Type Department Care Team (Late st Contact Info) Description 06/27/2024 Orders Only [facility] OB [address] [facility] [address] Symone Hunter DC [address] [place] [address] Social History Tobacco Use Types Packs/Day Years [...] OB [address] [facility] [address] 10/02/2024 11:00 AM EDT Routine [facility] OB [address] [facility] [address] Saravanan Ahumada, DO [address] [place] [address] [place] [address] 07/24/2025 9:15 AM EDT Office Visit [facility] [address] [place] [address] documented as of this encounter Goals Goal Patient Goal Type Associated Problems Recent Progress Patient-Stated? Author Reminders Care Plan OB Reminders No Open Scheduling, Background documented as of this encounter Procedures Procedure Name Priority Date/Time Associated Diagnosis Comments PAP SMEAR Routine 06/19/2024 12:00 AM EDT documented in this encounter Results * Pap Smear (06/19/2024 12:00 AM EDT) Swab Cervical swab / Unknown Saravanan Ahumada DO LAB CYTOLOGY ORDERABLES Final Re sult EXTERNAL LAB documented in this encounter Visit Diagnoses Not on filedocumented in this encounter Additional Health Concerns Active Problems Noted Date Diagnosed Date OB Reminders 04/30/2024 documented as of this encounter Care Teams Funeral Assistant Relationship Specialty Start Date End Date Omer Velazquez MD [address] [place] [address] PCP - General Internal Medicine 10/05/22 documented as of this encounter
--- OUTSIDE RECORDS SUMMARY | 2024-09-30 09:03 | XMS_ITS | Encounter Summary ---
Author Organization [facility] Address [address] [place] [address] Care Team Providers Care Broadcast Operations Director Name Role Phone Robles Goldsmith DO Unavailable [phone] Josefina Harris RN Unavailable [phone] Source Comments In the event this information is protected by the Federal Confidentiality of Alcohol and Drug AbusePatient Records regulations: The Federal rules restrict any use of the information to criminally investigate or prosecute any alcohol or drug abuse patient.[facility] Encounter Details Date Type Department Care Team (Latest Contact Info) Description 01/13/2024 Patient Msg Reproductive Endocrinology Infertility [address] [place] [address] Shaina Parr MD [address] [place] [address] Appointment Request Social History Tobacco [...] is lower risk 4 12/21/2023 Data from: https://www.neighborhoodatlas.[email or web address]/. Last address used for calculation [address] [...] on filedocumented in this encounter Care Teams Broadcast Operations Director Relationship Specialty Start Date End Date Robles Goldsmith DO [address] [place] [address] Referring Obstetrics 10/13/22 [place] [address] [address] [place], [place] [phone] Specialty Control Clerk Subassembly 04/12/24 documented as of this encounter
--- OUTSIDE RECORDS SUMMARY | 2024-09-30 09:03 | XMS_ITS | Encounter Summary ---
Author Organization [facility] Address [address] [place] [address] Care Team Providers Care District Manager In Training Name Role Phone Omer Velazquez MD Primary Care Provider [phone] Reason for Referral * Consultation (Routine) - Authorized Specialty Diagnoses / Procedures Referred By Contac t Referred To Contact Cardiology Diagnoses Holter monitor, abnormal Procedures RI OFFICE/OUTPATIENT [facility] 60 MINUTES Omer Velazquez MD [address] [facility] [address] [place] [address] Phone: tel: fax: Iveth Ding MD [facility] Referrals ONLY fax: Referral ID Status Reason Start Date Expiration Date Visits Requested Visits Authorized [id number] Authorized Specialty Services Required 09/20/2024 03/19/2025 1 1 Encounter Details Date Type Department Care Team (Late st Contact Info) Description 09/20/2024 Telephone [facility] [address] [facility] [address] [place] [address] [place], [place] Social History Tobacco Use Types Packs/Day Years [...] encounter Miscellaneous Notes * Telephone Encounter - Jarrod Royal MA - 09/20/2024 3:56 PM EDT Jaime Mccarthy NP P [facility] Gas Controller Advise pt that she had no significant arrhythmias but she did have an episode of rapid heart rate that was 10 beats and was 147 beats per minute. Refer her to [facility] cardiology to discuss. Thanks Jaime Mccarthy NP Patient informed, rx sent documented in this encounter Plan of Treatment Upcoming Encounters Date Type Department Care Team (Late st Contact Info) Description 10/02/2024 10:30 AM EDT Ancillary Procedure [facility] OB [address] [facility] [address] 10/02/2024 11:00 AM EDT Routine [facility] OB [address] [facility] [place] [address] Saravanan Ahumada, DO [address] [facility] [place] [address] 07/24/2025 9:15 AM EDT Office Visit [facility] [address] [place] [address] Scheduled Referrals Name Type Priority Associated Diagnoses Order Schedule Ambulatory referral to Cardiology Outpatient Referral Routine Holter monitor, abnormal Expected: 09/20/2024 (Approximate), Expires: 03/22/2025 documented as of this encounter Goals Goal Patient Goal Type Associated Problems Recent Progress Patient-Stated? Author Reminders Care Plan OB Reminders No Open Scheduling, Background documented as of this encounter Visit Diagnoses Diagnosis Holter monitor, abnormal documented in this encounter Additional Health Concerns Active Problems Noted Date Diagnosed Date OB Reminders 04/30/2024 documented as of this encounter Care Teams District Manager In Training Relationship Specialty Start Date End Date Omer Velazquez MD [address] [email or web address] [address] [place] [address] PCP - General Internal Medicine 10/05/22 documented as of this encounter
--- OUTSIDE RECORDS SUMMARY | 2024-09-30 09:03 | XMS_ITS | Clinical Summary ---
Author Organization [facility] Address [address] [place] [address] Care Team Providers Care Meat Stuffer Name Role Phone Lito Guerrero MD Primary Care Provider [phone] Allergies No known active allergies Medications cholecalciferol [...] 18 g 5 5 08/16/19 26 Active Alcohol Swabs (Alcohol Prep Pad) 70 % padsIndications: Gestational diabetes mellitus (GDM), antepartum, gestational diabetes method of control unspecified ([facility]HS-HCC),Elevat ed glucose tolerance test Apply 1 Pad topically Daily Use four times daily to check FSBS. 150 each 3 5 Active Blood Glucose Monitoring Suppl (D-Care Glucometer) [...] 30 tablet 5 5 02/27/20 25 Active Lantus SoloStar 100 UNIT/ML pen Inject 12 units every evening. Prime with 2 units. 5 Active Lancets Ultra Thin miscIndications: Gestational diabetes mellitus (GDM), antepartum, gestational diabetes method of control unspecified ([facility]),Elevat ed glucose tolerance test 1 each by In Vitro route Daily Use to check FSBS four times daily 150 each 3 5 09/25/19 25 Glucose Blood (Blood Glucose Test) stripIndications :Gestational diabetes mellitus (GDM), antepartum, gestational diabetes method of control unspecified ([facility]),Elevat ed glucose tolerance test 1 strip by In Vitro route Daily Use in the morning prior to breakfast, 1 hour after each meal for a total of 4times daily. 150 strip 3 5 09/25/19 25 Active Problems Problem Noted Date Diagnosed Date [...] Encounters Date Type Department Care Team Description 09/27/2024 Clinisync Result Encounter [facility] External Department Unsolicited Provider, Generic External Data 09/25/2024 1:00 PM EDT Routine [facility] [address] [facility] [place] [address] Negar Ahumada, DO Third trimester ([facility]); Insulin controlled gestational diabetes mellitus (GDM) during , antepartum ([facility]); 32 weeks gestation of ([facility]) 09/25/2024 Telephone [facility] [address] [place] [address] [place] [address] Negar Ahumada, 09/25/2024 Bamboo flowsheet [facility] [address] [facility] [facility] [place] [address] Negar Ahumada, 09/20/2024 Telephone [facility] [address] [place] [address] [place], [place] 09/14/2024 Clinisync Result Encounter [facility] External Department Unsolicited Provider, [facility] External Data 09/13/2024 11:30 AM EDT Routine [facility] [address] [place] [address] Negar Ahumada, History of gestational diabetes (Primary Dx); Third trimester ([facility]); 31 weeks gestation of ([facility]) 09/13/2024 Bamboo flowsheet [facility] [address] [place] [address] Negar Ahumada, 09/12/2024 Clinisync Result Encounter [facility] External Department Unsolicited Negar Ahumada, 09/12/2024 Telephone [facility] [address] [place] [address] [place] [address] Gaye Hollis LPN 09/06/2024 1:30 PM EDT Ancillary Procedure [facility] [address] [place] [address] Gestational diabetes mellitus (GDM), antepartum, gestational diabetes method of control unspecified ([facility]) 08/30/2024 11:20 AM EDT Routine [facility] [address] [facility] [place] [address] Negar Ahumada, 28 weeks gestation of ([facility]); Third trimester ([facility]); Gestational diabetes mellitus (GDM), antepartum, gestational diabetes method of control unspecified ([facility]); Herpes simplex virus type 1 (HSV-1) dermatitis 08/30/2024 Bamboo flowsheet [facility] [address] [place] [address] Negar Ahumada DO 08/25/2024 Telephone [facility] [address] [facility] [place] [phone] Symone Hunter [place] 08/24/2024 External Result Encounter [facility] External Department Unsolicited Jaime Mccarthy NP 08/23/2024 Clinisync Result Encounter [facility] External Department Unsolicited Provider, Generic External Data 08/23/2024 Travel 08/16/2024 8:30 AM EDT Routine [facility] [address] [facility] [place] [address] Rupal Patel PA Second trimester ([facility]); 26 weeks gestation of ([facility]) 08/16/2024 Bamboo flowsheet [facility] [address] [facility] [place] [address] Rupal Patel PA 08/14/2024 Telephone [facility] IM [address] [place] [address] Lito Guerrero MD Med Refill 08/09/2024 Travel 08/07/2024 Clinisync Result Encounter [facility] External Department Unsolicited Provider, Generic External Data 07/18/2024 9:15 AM EDT Office Visit [facility] [address] [place] [address] Lito Guerrero MD Annual physical exam (Primary Dx); Hepatic steatosis; Monoallelic mutation of SDHA gene; Polycystic ovaries; Vitamin D deficiency; Palpitations; Murmur 07/18/2024 Travel 07/17/2024 10:40 AM EDT Routine [facility] [address] [facility] [place] [phone] Negar Ahumada DO Diabetes mellitus screening; Second trimester ([facility]); 22 weeks gestation of ([facility]) 07/17/2024 Bamboo flowsheet [facility] [address] [facility] [place] [address] Negar Ahumada DO 07/11/2024 Travel 07/07/[address] [address] [place] [address] Symone Hunter MA 07/05/2024 8:00 AM EDT Ancillary Procedure [facility] [address] [place] [address] Screening, , for anatomic survey ([facility]) from Last 3 Months Immunizations Immunization Administration Dates Next Due DTP 1995,1995 DTaP, Unspecified 08/10/2000,08/04/1996,03/17/19 96 HPV 9-Valent 08/12/2015,04/10/2015,12/05/2014 Hep B, Adolescent or Pediatric 03/17/1996,1995,1995 HiB, unspecified 08/04/1996, 6,1995,06/07 IPV 08/10/2000 Influenza, seasonal, injecta ble, preservative free 01/30/2015 MMR 05/04/2023,08/10/2000,04/21/1996 Meningococcal MCV4P 08/12/2006 Novel [id number], preservative-free 02/13/2009 OPV 03/17/1996,1995,1995 Tdap 06/26/2022 Varicella [...] Pressure 130/80 09/25/2024 1:26 PM EDT Pulse 90 07/18/2024 9:20 AM EDT Temperature - - Respiratory Rate - - Oxygen Saturation 98% 07/18/2024 9:20 AM EDT Inhaled Oxygen Concentration - - Weight 102 kg (225 lb 8 oz) 09/25/2024 1:26 PM E DT Height 160 cm (5' 3 ) 07/18/2024 9:20 AM EDT Body Mass Index 39.95 07/18/2024 9:20 AM EDT Plan of Treatment Upcoming Encounters Date Type Department Care Team (Late st Contact Info) Description 10/02/2024 10:30 AM EDT Ancillary Procedure [facility] [address] [place] [address] [place] [address] 10/02/2024 11:00 AM EDT Routine [facility] [address] [facility] [place] [address] Negar Ahumada, DO [address] [facility] [place] [address] 07/24/2025 9:15 AM EDT Office Visit [facility] [address] [place] [phone] Health Maintenance Due Date Last Done Comments Influenza Vaccine (#1) 2024 01/30/2015 Goals Goal Patient Goal Type Associated Problems Recent Progress Patient-Stated? Author Reminders Care Plan OB Reminders No Open Scheduling, Background Procedures Procedure Name Priority Date/Time Associated Diagnosis Comments US OB BPP W NON-STRESS 09/27/2024 5:08 PM EDT POCT URINALYSIS DIPSTICK Routine 09/25/2024 1:34 PM EDT Third trimester ([facility]) TBH TOTAL PROTEIN 24 HOUR URINE Routine 09/14/2024 9:30 AM EDT POCT URINALYSIS DIPSTICK Routine 09/13/2024 11:56 AM EDT Third trimester ([facility]) MHPT FIBRINOGEN Routine 09/12/2024 5:24 PM EDT C[facility] APTT Routine 09/12/2024 5:24 PM EDT SRMCO[facility] PROTHROMBIN TIME INR W/O COUM Routine 09/12/2024 5:24 PM EDT CCF ALT Routine 09/12/2024 5:24 PM EDT [facility] AST Routine 09/12/2024 5:24 PM EDT ALL URIC ACID Routine 09/12/2024 5:24 PM EDT TBH CREATININE Routine 09/12/2024 5:24 PM EDT ALL BUN Routine 09/12/2024 5:24 PM EDT ALL CBC WITH AUTO DIFF Routine 5:24 PM EDT TBH UA (CLEAN/CATCH) CHARITY FUNDRAISER/MICRO IF IND. Routine 09/12/2024 4:30 PM EDT US OB FOLLOW UP TRANSABDOMINAL APPROACH Routine 09/06/2024 1:55 PM EDT Gestational diabetes mellitus (GDM), antepartum, gestational diabetes method of control unspecified ([facility]) TRANSTHORACIC ECHO (TTE) COMPLETE 08/24/2024 12:39 PM EDT GLUCOSE 1 HOUR Routine 08/23/2024 10:49 AM EDT ALL CBC WITH AUTO DIFF Routine 10:49 AM EDT POCT URINALYSIS DIPSTICK Routine 08/16/2024 8:45 AM EDT Second trimester ([facility]) US OB INCOMPLETE ANATOMY 08/07/2024 9:48 AM EDT POCT URINALYSIS DIPSTICK Routine 07/17/2024 11:08 AM EDT 22 weeks gestation of ([facility]) US OB 14+ WEEKS ANATOMY SCAN Routine 07/05/2024 9:14 AM EDT Screening, , for anatomic survey ([facility]) from Last 3 Months Results * US OB BPP W NON-STRESS (09/27/2024 5:08 PM EDT) Anatomical Region Laterality Modality Other 09/27/2024 5:08 PM EDT Narrative 09/27/2024 5:11 PM EDT The [address] [address] Ultrasound Report Signed Patient: LISSA ROJAS MR#: [id number] : 1995 Acct:[id number] Age/Sex: 29 / F ADM Date: 09/27/24 Loc: [facility] 250-[address]: Negar Ahumada D.O. Ordering Physician: Negar Ahumada D.O. Date of Service: 09/27/24 Procedure(s): US OB BPP w non-stress Accession Number(s): [id number] cc: Negar Ahumada D.O.; LITO GUERRERO [address] [address] Patient Name: LISSA ROJAS MRN: [id number]:[id number] date: 1995 Sex: F Assigned Patient Location: [facility] Current Patient Location: [facility] Accession/Order Number: [id number] Exam Date: 09/27/2024 17:07 Report Date: 09/27/2024 17:08 At the request of: NEGAR AHUMADA DO Procedure: US OB BPP w non-stress Biophysical profile. Reason for exam: Gestational diabetes. COMPARISON: None. TECHNIQUE: Transabdominal imaging of the gravid uterus was obtained. FINDINGS: The manager regulatory reports the biophysical profile of 8 out of 8. RAKESH is normal at 18.6 cm. heart rate 145 bpm. US/US OB BPP w non-stress IMPRESSION: BPP 8 out of 8. Impression dictated by: Navjot Harmon Jr., D.O. 09/27/2024 5:08 PM Dictation Location: [place] [address] Electronically authenticated by: [id number] Y Date: 09/27/2024 17:08 Dictated By: Navjot Harmon M.D. Signed By: 09/27/241710 DD/ 07 TD/TT: Wealth Management Advisor: Procedure Note Radiology, Radiologist, - 09/27/2024 [place] [address] Ultrasound Report Signed Patient: LISSA ROJAS FMR#: [id number] : 1995Acct:[id number] Age/Sex: 29 / FADM Date: 09/27/24 Loc: [facility] 250-[address]: Negar Ahumada D.O. Ordering Physician: Negar Ahumada D.O. Date of Service: 09/27/24 Procedure(s): US OB BPP w non-stress Accession Number(s): [id number] cc: Negar Ahumada D.O.; LITO GUERRERO [place] [address] Patient Name: LISSA ROJAS MRN: [id number]:[id number] date: 1995 Sex: F Assigned Patient Location: [facility] Current Patient Location: [facility] Accession/Order Number: [id number] Exam Date: 09/27/2024 17:07 Report Date: 09/27/2024 17:08 At the request of: NEGAR AHUMADA DO Procedure: US OB BPP w non-stress Biophysical profile. Reason for exam: Gestational diabetes. COMPARISON: None. TECHNIQUE: Transabdominal imaging of the gravid uterus was obtained. FINDINGS: The manager regulatory reports the biophysical profile of 8 out of 8.RAKESH is normal at 18.6 cm. heart rate 145 bpm. US/US OB BPP w non-stress IMPRESSION: BPP 8 out of 8. Impression dictated by: Navjot Harmon Jr., D.O. 09/27/2024 5:08 PM Dictation Location: [place] [address] Electronically authenticated by: [id number] Y Date: 7:08 Dictated By: Navjot Harmon M.D. Signed By:09/27/241710 DD/ 07 TD/TT: Wealth Management Advisor: us Generic External Data Provider [facility] Final Result * (ABNORMAL) POCT urinalysis dipstick manually resulted (09/25/2024 1:34 PM EDT) Only the most recent of4 resultswithin the time period is included. Color, UA Yellow Clarity, UA Clear Glucose, UA Negative Negative - 1999(110) ++++ mg/dL Bilirubin, UA Negative Negative - 4(70) +++ mg/dL Ketones, UA Positive Negative - 160(16) ++++ mg/dL Comment:15mg/dL Spec Grav, UA 1.020 1 - 1.03 Blood, UA Negative Negative - 50 Jorge Luis/mcL pH, UA 7.0 5 - 9 Protein, UA Positive Negative - 1999(20) ++++ mg/dL Comment:30mg/dL Urobilinogen, UA 0.2 0.2 - 12 mg/dL Leukocytes, UA Negative Negative - 500+++ Flori/mcL Nitrite, UA Negative Negative - Positive Urine 09/25/2024 1:34 PM EDT Negar Zita DO POINT OF CARE TEST ENTER/EDIT OR DERABLES Final Result * (ABNORMAL) TBH TOTAL PROTEIN 24 HOUR URINE (09/14/2024 9:30 AM EDT) TOTAL PROTEIN URINE RANDOM 16.8(H) <=11.9 mg/dL TBH TOTAL VOLUME 24 HOUR URINE 2,500 mL/24hr TBH TBH TOTAL PROTEIN 24 HOUR URINE 420.0(H) <=149.1 mg/24hr TBH 09/14/2024 9:30 AM EDT 09/14/2024 10:23 AM EDT Narrative [facility] - 09/14/2024 11:15 AM EDT us Negar Zita DO [facility] Final Result [facility] * (ABNORMAL) TBH CREATININE (09/12/2024 5:24 PM EDT) CREATININE 0.44(L) 0.55 - 1.02 mg/dL TBH TBH EGFR-AF BENINESE >60 >=60 mL/min/1.7 3m 2 TBH TBH EGFR-NON AF BENINESE >60 >=60 mL/min/1.7 3m 2 TBH 09/12/2024 5:24 PM EDT 09/12/2024 5:33 PM EDT Narrative [facility] - 09/12/2024 5:42 PM EDT Negar Zita DO [facility] Final Result Performing Organization Address City/[facility]/ZIP Co de Phone Number [facility] * [facility] PROTHROMBIN TIME INR W/O COUM (09/12/2024 5:24 PM EDT) PROTHROMBIN TIME 9.9 9.0 - 11.6 sec TB TB INR 0.93 TBH Comment: DESIRED INR: 2.0-3.0 CONDITIONS NOT LISTED BELOW 2.5-3.5 FOR PROSTHETIC HEART VALVE REPLACEMENT 2.5-3.5 RECURRENT THROMBOSIS 09/12/2024 5:24 PM EDT 09/12/2024 5:33 PM EDT Narrative [facility] - 09/12/2024 6:00 PM EDT Negar Zita DO [facility] Final Result Performing Organization Address [facility] Co de Phone Number [facility] * (ABNORMAL) MHPT FIBRINOGEN (09/12/2024 5:24 PM EDT) FIBRINOGEN 425(H) 200 - 400 mg/dL TB 09/12/2024 5:24 PM EDT 09/12/2024 5:33 PM EDT Narrative [facility] - 09/12/2024 6:00 PM EDT Negarmel Luo DO [facility] Final Result Performing Organization Address [facility] Co de Phone Number [facility] * (ABNORMAL) CCF AST (09/12/2024 5:24 PM EDT) ASPARTATE AMINO TRANSFERASE 11(L) 15 - 37 U/L TB 09/12/2024 5:24 PM EDT 09/12/2024 5:33 PM EDT Narrative [facility] - 09/12/2024 5:42 PM EDT us Negar Zita DO [facility] Final Result [facility] TBH * CCF APTT (09/12/2024 5:24 PM EDT) PARTIAL THROMBOPLASTIN TIME 25.2 22.3 - 36.2 sec TBH 09/12/2024 5:24 PM EDT 09/12/2024 5:33 PM EDT Narrative [facility] - 09/12/2024 6:00 PM EDT us Negar Zita DO [facility] Final Result Performing Organization Address [facility] Co de Phone Number [facility] TB * CCF ALT (09/12/2024 5:24 PM EDT) ALANINE AMINOTRANSFERASE 23 14 - 59 U/L TBH 09/12/2024 5:24 PM EDT 09/12/2024 5:33 PM EDT Narrative [facility] - 09/12/2024 5:42 PM EDT us Negar Zita DO [facility] Final Result Performing Organization Address [facility]/ZIP Co de Phone Number [facility] * ALL URIC ACID (09/12/2024 5:24 PM EDT) URIC ACID 3.4 2.6 - 6.0 mg/dL TBH 09/12/2024 5:24 PM EDT 09/12/2024 5:33 PM EDT Narrative [facility] - 09/12/2024 5:42 PM EDT us Negar Zita DO [facility] Final Result Performing Organization Address [facility]/State/ZIP Co de Phone Number [facility] * (ABNORMAL) ALL CBC WITH AUTO DIFF (09/12/2024 5:24 PM EDT) Only the most recent of2 resultswithin the time period is included. TBH WBC 10.1 4.0 - 11.0 10 3/uL TBH TBH RBC 3.29(L) 4.20 - 5.40 10 6/uL TBH TBH HGB 10.5(L) 12.0 - 16.0 g/dL TBH TBH HCT 30.7(L) 36.0 - 48.0 % TBH TBH MCV 93.3 81.0 - 99.0 fL TBH TBH MCH 31.9 26.7 - 34.0 pg TBH TBH MCHC 34.2 29.9 - 35.2 g/dL TBH TBH RDW 12.9 11.0 - 15.0 % TBH TBH PLT 227 150 - 450 10 3/uL TBH TBH MPV 10.1 9.5 - 13.5 fL TBH NEUTROPHILS PERCENT AUTO 74.8 43.0 - 75.0 % TBH LYMPHOCYTES PERCENT AUTO 16.8(L) 20.5 - 60.0 % TBH MONOCYTES PERCENT AUTO 6.4 1.7 - 12.0 % TBH TBH EO % 1.1 0.9 - 7.0 % TBH BASOPHILS PERCENT AUTO 0.3 0.2 - 2.0 % TBH IMMATURE GRANULOCYTES PCT AUTO 0.6(H) 0.0 - 0.5 % TBH NEUTROPHILS ABSOLUTE AUTO 7.6(H) 1.4 - 6.5 10 3/uL TBH LYMPHOCYTES ABSOLUTE AUTO 1.7 1.2 - 3.8 10 3/uL TBH MONOCYTES ABSOLUTE AUTO 0.7 0.3 - 0.8 10 3/uL TBH TBH EO # 0.1 0.0 - 0.7 10 3/uL TBH BASOPHILS ABSOLUTE AUTO 0.0 0.0 - 0.1 10 3/uL TBH IMMATURE GRANULOCYTES ABS AUTO 0.06(H) 0.00 - 0.03 10 3/uL TBH 09/12/2024 5:24 PM EDT 09/12/2024 5:33 PM EDT Narrative CLIN[facility] - 09/12/2024 5:33 PM EDT us Negar Zita DO [facility] Final Result Performing Organization Address City/[facility]/ZIP Co de Phone Number [facility] TBH * ALL BUN (09/12/2024 5:24 PM EDT) BLOOD UREA NITROGEN 8.0 7.0 - 18.0 mg/dL TBH 09/12/2024 5:24 PM EDT 09/12/2024 5:33 PM EDT Narrative [facility] - 09/12/2024 5:42 PM EDT Negar Zita DO [facility] Final Result Performing Organization Address [facility] Phone Number [facility] * (ABNORMAL) TBH UA (CLEAN/CATCH) CHARITY FUNDRAISER/MICRO IF IND. (09/12/2024 4:30 PM EDT) COLOR URINE LT. YELLOW YELLOW TBH CLARITY URINE CLEAR CLEAR TBH SPECIFIC GRAVITY URINE <=1.005(A) 1.005 - 1.025 TBH PH URINE 6.5 5.0 - 9.0 TBH PROTEIN URINE NEGATIVE NEG/TRACE mg/dL TBH GLUCOSE URINE UA NEGATIVE NEGATIVE mg/dL TBH BILIRUBIN URINE NEGATIVE NEGATIVE TBH KETONES URINE TRACE(A) NEGATIVE mg/dL TBH BLOOD URINE NEGATIVE NEGATIVE TBH NITRITE URINE NEGATIVE NEGATIVE TBH UROBILINOGEN URINE 0.2 0.2 - 1.0 EU/dL TBH LEUKOCYTE ESTERASE URINE NEGATIVE NEGATIVE TBH URINE MICROSCOPIC INDICATED NO TBH 09/12/2024 4:30 PM EDT 09/12/2024 5:08 PM EDT Narrative [facility] - 09/12/2024 5:12 PM EDT us Negar Zita DO [facility] Final Result Performing Organization Address [facility] Co de Phone Number [facility] TBH * US OB follow up transabdominal approach [...] II, MD, PHD at 08-Sep-2024 10:22:30 AM [facility] Procedure Note Alysa Astudillo MD - [...] signed by ALYSA ASTUDILLO II, MD, PHD [id number] 10:22:30 AM [facility] us Negar Zita DO IMG OB US PROCEDURES Final Resul t * Transthoracic echo (TTE) complete (08/24/2024 12:39 PM EDT) Anatomical Region Laterality Modality Heart Ultrasound 08/24/2024 12:3 9 PM EDT Narrative 08/24/2024 6:36 PM EDT [facility] Main [place] [address] [place] [address] Echocardiogram Signed Patient: Lissa Rojas MR#: [id number] : 1995 Acct:[id number] Age/Sex: 29 / F ADM Date: 08/24/24 Loc: Room: Type: [facility] Attending Dr: Jaime Mccarthy RN, MSN, ANP-C [...] Procedure Note Iveth Ding MD - 08/24/2024 [facility] Main [address] [address] Echocardiogram Signed Patient: Lissa Rojas FMR#: [id number] : 1995Acct:[id number] Age/Sex: 29 / FADM Date: 08/24/24 Loc: Room:Type: [facility] Attending Dr: Jaime Mccarthy RN, MSN, ANP-C [...] 1239 Signed By: Iveth Ding MD 08/24/24 [id number] us Jaime Mccarthy DELINQUENT ACCOUNT CLERK CV ECHO PROCEDURES Final Res ult * (ABNORMAL) GLUCOSE 1 HOUR (08/23/2024 10:49 AM EDT) Pathologist [facility] GLUCOSE 1 HOUR 181(H) <130 mg/dL TBH 08/23/2024 10:4 9 AM EDT 08/23/2024 10:51 AM EDT Narrative [facility] - 08/23/2024 11:33 AM EDT us Negar Luo DO LAB BLOOD ORDERABLES Final Resul t [facility] * US OB INCOMPLETE ANATOMY (08/07/2024 9:48 AM EDT) Anatomical Region Laterality Modality Other 08/07/2024 9:48 AM EDT Narrative 08/07/2024 9:50 [place] [address] Ultrasound Report Signed Patient: LISSA ROJAS MR#: [id number] : 1995 Acct:[id number] Age/Sex: 29 / F ADM Date: 08/04/24 Loc: US Attending Dr: Negar Ahumada D.O. Ordering Physician: Negar Ahumada D.O. Date of Service: 08/04/24 Procedure(s): US OB incomplete anatomy Accession Number(s): [id number] cc: Negar Ahumada D.O.; LITO GUERRERO [place] [address] Patient Name: LISSA ROJAS MRN: [id number] date: 1995 Sex: F Assigned Patient Location: US Current Patient Location: Accession/Order Number: [id number] Exam Date: 08/07/2024 09:41 Report Date: 08/07/2024 [...] Gage M.D. 08/07/2024 9:48 AM Dictation Location: [place] [address] Electronically authenticated by: [id number] Y Date: 08/07/2024 09:48 Dictated By: Paula Gage M.D. Signed By: 05/03/22 950 DD/ 7 TD/TT: Wealth Management Advisor: Procedure Note Radiology, Radiologist, - 08/07/2024 [place] [address] Ultrasound Report Signed Patient: CONSTANTINE ROJAS#: [id number] : 1995Acct:[id number] Age/Sex: 29 / FADM Date: 08/04/24 Loc: US Attending Dr: Negar Ahumada D.O. Ordering Physician: Negar Ahumada D.O. Date of Service: 08/04/24 Procedure(s): US OB incomplete anatomy Accession Number(s): [id number] cc: Negar Ahumada D.O.; LITO GUERRERO [place] [id number] Patient Name: LISSA ROJAS MRN: [facility]:[id number] date: 1995 Sex: F Assigned Patient Location: US Current Patient Location: Accession/Order Number: [id number] Exam Date: 08/07/2024 09:41 Report Date: 08/07/2024 [...] Gage M.D. 08/07/2024 9:48 AM Dictation Location: [place] [address] Electronically authenticated by: [id number] Y Date: 9:48 Dictated By: Paula Gage M.D. Signed By:08/07/2450 DD/ 0948 TD/TT: Wealth Management Advisor: us Generic External Data Provider [facility] Final Result * US OB 14+ [...] II, MD, PHD at 07-Jul-2024 06:23:52 AM [facility] Procedure Note Alysa Astudillo MD - [...] signed by ALYSA ASTUDILLO II, MD, PHD [id number] 06:23:52 AM [facility] us Negar Zita DO IMG OB US PROCEDURES Final Resul t from Last 3 Months Additional Health Concerns Active Problems Noted Date Diagnosed Date OB Reminders 04/30/2024 Insurance [facility] [place] [place] Address[facility] [id number] [place] [address] [employer] Care Teams Meat Stuffer Relationship Specialty Start Date End Date Lito Guerrero MD [address] [place] [address] PCP - General Internal Medicine 10/05/22
--- OUTSIDE RECORDS SUMMARY | 2024-09-30 09:03 | XMS_ITS | Encounter Summary ---
Author Organization [facility] Address [address] [place] [address] Care Team Providers Care Landscape Foreman Name Role Phone Robles Goldsmith DO Unavailable [phone] Josefina Harris RN Unavailable [phone] Source Comments In the event this information is protected by the Federal Confidentiality of Alcohol and Drug AbusePatient Records regulations: The Federal rules restrict any use of the information to criminally investigate or prosecute any alcohol or drug abuse patient.[facility] Encounter Details Date Type Department Care Team (Latest Contact Info) Description 07/15/2023 Patient Msg Reproductive Endocrinology Infertility [address] [place], [place] [id number] Provider, Ccf confidential appointment on 08/08 with [...] on filedocumented in this encounter Care Teams Landscape Foreman Relationship Specialty Start Date End Date Robles Goldsmith DO [address] [address] Referring Obstetrics 10/13/22 Josefina Harris, ARIC [address] [place] [address] Specialty Insurance Sales Associate 04/12/24 documented as of this encounter
--- OUTSIDE RECORDS SUMMARY | 2024-09-30 09:03 | XMS_ITS | Encounter Summary ---
Author Organization [facility] [employer] [facility] tem Address [id number] [place] [address] Care Team Providers Care Remote Control Mirror Installer Name Role Phone Unavailable Primary Care Provider Unavailabl e Encounter Details Date Type Department Care Team (Late Contact Info) Description 09/18/2024 Orders Only Maternal- Medicine at [facility] [address] [place] [address] Corby Rose, OSEAS Gestational diabetes requiring insulin; Elevated blood pressure affecting , antepartum; Insulin controlled gestational diabetes mellitus (GDM) in third trimester; Abnormal liver enzymes Social History Tobacco Use Types Packs/Day Years [...] PM EDT Office Visit Maternal- Medicine at [facility] [address] [place] [address] Siria Rebolledo, PSYCHIATRIC NP-BUNDLE TIER AND LABELER [address] [place] [address] 10/16/2024 2:00 PM EDT Office Visit Maternal- Medicine at [facility] [address] [place] [address] Vy Pemberton MD [address] [facility], [address] [place] [address] documented as of this encounter Procedures Procedure Name Priority Date/Time Associated Diagnosis Comments PROTEIN CREAT RATIO Routine 09/12/2024 Gestational diabetes requiring insulin Elevated blood pressure affecting , antepartum CBC (NO DIFF) Routine 09/12/2024 Insulin controlled gestational diabetes mellitus (GDM) in third trimester Abnormal liver enzymes Elevated blood pressure affecting , antepartum documented in this encounter Results * CBC without diff (09/12/2024) CBC, Platelet Ct, and Diff see scanned report MANUALLY TRANSCRIBED RESULTS Blood Venous blood / Unknown 09/12/2024 us Ruthann THAYER-C LAB BLOOD ORDERABLES Final Result Performing Organization Address [facility] Co de Phone Number MANUALLY TRANSCRIBED RESULTS * Urine protein creatinine ratio (09/12/2024) Prot/Creat Ratio, Ur see scanned report MANUALLY TRANSCRIBED RESULTS Urine Urine specimen collection, clean catch / Unknown 09/12/2024 us Ruthann THAYER-C URINE ORDERABLES Final Resu lt Performing Organization Address [facility]/ZIP Co de Phone Number MANUALLY TRANSCRIBED RESULTS documented in this encounter Visit Diagnoses Diagnosis Gestational diabetes requiring insulin Abnormal maternal glucose tolerance, complicating , childbirth, or the puerperium, unspecified as to episode of care Elevated blood pressure affecting , antepartum Insulin controlled gestational diabetes mellitus (GDM) in third trimester Abnormal liver enzymes documented in this encounter
--- OUTSIDE RECORDS SUMMARY | 2024-09-30 09:03 | XMS_ITS | Encounter Summary ---
Author Organization [facility] [employer] [place] tem Address [id number] [address] [place] [address] Care Team Providers Care Regrind Mill Operator Name Role Phone Unavailable Primary Care Provider Unavailabl e Encounter Details Date Type Department Care Team (Late Contact Info) Description 09/14/2024 Orders Only Maternal- Medicine at [facility] [address] [place] [address] Torrie Posada RN Social History Tobacco Use Types Packs/Day [...] Department Care Team (Late Contact Info) Description 10/11/2024 2:00 PM EDT Office Visit Maternal- Medicine at [facility] [address] [place] [address] Siria Rebolledo, DEBBIE-JORDAN [address] [place] [address] 10/16/2024 2:00 PM EDT Office Visit Maternal- Medicine at [facility] [address] [place] [phone] Vy Pemberton MD [address] [facility], [address] [place] [address] documented as of this encounter Visit Diagnoses Not on filedocumented in this encounter
--- OUTSIDE RECORDS SUMMARY | 2024-09-30 09:03 | XMS_ITS | Encounter Summary ---
Author Organization [facility] Address [address] [place] [address] Care Team Providers Care Elementary Reading Tutor Name Role Phone Omer Velazquez MD Primary Care Provider [phone] Encounter Details Date Type Department Care Team (Late st Contact Info) Description 09/12/2024 Telephone [facility] [address] [employer] [place] [place] [address] Gaye Hollis LPN [address] [place] [id number] Social History Tobacco Use Types Packs/Day Years [...] Start Date Job End Date Works full-time, [employer] Not on file Not on file N ot on file documented as of this encounter Miscellaneous Notes * Telephone Encounter - Gaye Hollis LPN - 09/12/2024 3:14 PM EDT Hi, my name is Ruthann Miller, I am a PA at maternal medicine at [facility], and I saw a patient of Dr. [...] say she has an appointment with you [facility] tomorrow, so that is good that she will be getting her blood pressure check tomorrow as well. Feel free to call me back with any questions or tofollow up. I am at [phone]. Thank you. FYI documented in this encounter Plan of Treatment Upcoming Encounters Date Type Department Care Team (Late st Contact Info) Description 10/02/2024 10:30 AM EDT Ancillary Procedure [facility] [address] [place] [address] 10/02/2024 11:00 AM EDT Routine [facility] OB [address] [place] [address] Saravanan Ahumada, DO [address] [place], [place] [id number] 07/24/2025 9:15 AM EDT Office Visit [facility] [address] [place] [address] documented as of this encounter Goals Goal Patient Goal Type Associated Problems Recent Progress Patient-Stated? Author Reminders Care Plan OB Reminders No Open Scheduling, Background documented as of this encounter Visit Diagnoses Not on filedocumented in this encounter Additional Health Concerns Active Problems Noted Date Diagnosed Date OB Reminders 04/30/2024 documented as of this encounter Care Teams Elementary Reading Tutor Relationship Specialty Start Date End Date Omer Velazquez MD [address] [facility] [address] [place] [address] PCP - General Internal Medicine 10/05/22 documented as of this encounter
--- OUTSIDE RECORDS SUMMARY | 2024-09-30 09:03 | XMS_ITS | Encounter Summary ---
Author Organization [facility] Address [address] [place] [address] Care Team Providers Care Business Development Recruiter Name Role Phone Omer Velazquez MD Primary Care Provider [phone] Encounter Details Date Type Department Care Team (Late st Contact Info) Description 09/25/[address] [facility] [address] [place] [address] Saravanan Ahumada, DO [address] [place], [id number] Social History Tobacco Use Types Packs/Day Years [...] EDT Ancillary Procedure [facility] B[facility] OB [address] [facility] [place] [phone] 10/02/2024 11:00 AM EDT Routine [facility] OB [address] [facility] [place] [address] Saravanan Ahumada, DO [address] [facility] [place] [address] 07/24/2025 9:15 AM EDT Office Visit [facility] [address] [place] [address] documented as of this encounter Goals Goal Patient Goal Type Associated Problems Recent Progress Patient-Stated? Author Reminders Care Plan OB Reminders No Open Scheduling, Background documented as of this encounter Visit Diagnoses Not on filedocumented in this encounter Additional Health Concerns Active Problems Noted Date Diagnosed Date OB Reminders 04/30/2024 documented as of this encounter Care Teams Business Development Recruiter Relationship Specialty Start Date End Date Omer Velazquez MD [address] [place] [address] PCP - General Internal Medicine 10/05/22 documented as of this encounter
--- OUTSIDE RECORDS SUMMARY | 2024-09-30 09:03 | XMS_ITS | Encounter Summary ---
Author Organization [facility] Address [address] [place] [address] Care Team Providers Care Metalworking Specialist Name Role Phone Omer Velazquez MD Primary Care Provider [phone] Encounter Details Date Type Department Care Team (Late st Contact Info) Description 05/23/2024 Abstract [facility] OB [address] [facility] [place] [address] Kayla Ashley LPN Social History Tobacco [...] EDT Ancillary Procedure [facility] [address] [facility] [place] [address] 10/02/2024 11:00 AM EDT Routine [facility] OB [address] [facility] [place] [address] Saravanan Ahumada, DO [address] [place] [address] [place] [address] 07/24/2025 9:15 AM EDT Office Visit [facility] [address] [facility] [address] [place] [address] documented as of this encounter Goals Goal Patient Goal Type Associated Problems Recent Progress Patient-Stated? Author Reminders Care Plan OB Reminders No Open Scheduling, Background documented as of this encounter Visit Diagnoses Not on filedocumented in this encounter Additional Health Concerns Active Problems Noted Date Diagnosed Date OB Reminders 04/30/2024 documented as of this encounter Care Teams Metalworking Specialist Relationship Specialty Start Date End Date Omer Velazquez MD [address] [place] [address] PCP - General Internal Medicine 10/05/22 documented as of this encounter
--- OUTSIDE RECORDS SUMMARY | 2024-09-30 09:03 | XMS_ITS | Encounter Summary ---
Author Organization [facility] Address [address] [place] [address] Care Team Providers Care Pulmonology Technician Name Role Phone Robles Goldsmith Benitez DO Unavailable [phone] Josefina Harris RN Unavailable [phone] Source Comments In the event this information is protected by the Federal Confidentiality of Alcohol and Drug AbusePatient Records regulations: The Federal rules restrict any use of the information to criminally investigate or prosecute any alcohol or drug abuse patient.[facility] Encounter Details Date Type Department Care Team (Late st Contact Info) Description 09/26/2024 Results Follow-Up Endocrinology [address] [place] [address] Mirta Valderrama MD [address] [place] [address] Social History Tobacco Use Types Packs/Day Years Used Date Smoking Tobacco: Never Smokeless Tobacco: Never Alcohol Use Standard Drinks/Week Comments Yes 0 (1 standard drink = 0.6 oz pur e alcohol) rare, socially Area Deprivation Index Answer Date Ibrahima rded National Score (1-100), lower number is lower ri sk 64 12/21/2023 State Score (1-10), lower number is lower risk 4 12/21/2023 Data from: https://www.neighborhoodatlas.medicine.[facility].edu/. Last address used for calculation [address] [place] [address] 12/21/2023 Comments Yes Sex and Gender Information Value Date Recorded Sex Assigned at Female 01/04/2023 6:38 PM EDT Legal Sex Female 10:39 AM EDT Gender Identity Female 01/04/2023 6:38 PM EDT Sexual Orientation Not on file documented as of this encounter Plan of Treatment Not on file documented as of this encounter Visit Diagnoses Not on filedocumented in this encounter Care Teams Pulmonology Technician Relationship Specialty Start Date End Date Robles Goldsmith DO [address] [place] [address] Referring Obstetrics 10/13/22 [place] [address] [place] [address] Specialty School Plant Consultant 04/12/24 documented as of this encounter
--- OUTSIDE RECORDS SUMMARY | 2024-09-30 09:03 | XMS_ITS | Clinical Summary ---
Author Organization [facility] tem Address [id number] [address] [place] [address] Care Team Providers Care Electromechanic Name Role Phone Unavailable Primary Care Provider Unavailabl e Allergies No known active allergies Medications [id number] ic acid ( 19) 29 mg iron- 1 mg tablet,chewabl e Chew 1 tablet and swallow in the morning. Active blood-glucose sensor (DEXCOM G7 SENSOR) deviceIndicati ons:Gestationa l diabetes requiring insulin,Elevat ed blood pressure affecting , antepartum Use to monitor blood glucose. Change every 10 days 5 each 10 09/13/19 25 Active insulin glargine (LANTUS SOLOSTAR U-100 INSULIN) 100 unit/mL (3 mL) insulin penIndications :Gestational diabetes requiring insulin Inject 16 units every evening. Prime with 2 units. 15 mL 2 09/21/19 25 Active fluticasone propionate (FLONASE) 50 mcg/actuation nasal spray Administer 1 spray into each nostril in the morning. 025 Discontinued(Charlie macias Stopped On Own) letrozole (FEMARA) 2.5 mg chemo tablet Take 1 tablet by mouth daily 025 Discontinued metFORMIN XR (GLUCOPHAGE XR) 500 mg 24 hr tablet Take 1 tablet (500 mg total) by mouth daily with breakfast. 025 Discontinued progesterone (PROMETRIUM) 200 mg capsule Take 1 capsule (200 mg total) by mouth in the morning. 025 Discontinued( erapy completed) medroxyPROGEST ERone (PROVERA) 10 mg tablet Take 1 tablet (10 mg total) by mouth in the morning. 025 Discontinued(Th erapy completed) metFORMIN XR (GLUCOPHAGE XR) 500 mg 24 hr tablet Take 1 tablet (500 mg total) by mouth Every 12 (twelve) hours. 09/06/19 025 Discontinued(Charlie macias Never Started This Medication) insulin glargine (LANTUS SOLOSTAR U-100 INSULIN) 100 unit/mL (3 mL) insulin penIndications :Gestational diabetes requiring insulin Inject 12 units every evening. Prime with 2 units. 15 mL 2 09/13/19 025 Discontinued(Re order) Active Problems Problem Noted Date Diagnosed Date Insulin controlled gestation al diabetes mellitus (GDM) in third trimester 09/12/2024 Abnormal liver enzymes 09/12/2024 Elevated blood pressure affecting , ant epartum 09/12/2024 Estimated Date of Delivery Comme nts Yes 11/19/2024 Based on last me nstrual period of 02/13/2024 Encounters Date Type Department Care Team Description 09/20/2024 11:00 AM EDT Telemedicine Maternal- Medicine at [facility] [address] [place] [address] Siria Rebolledo APRN-JORDAN Insulin controlled gestational diabetes mellitus (GDM) in third trimester (Primary Dx); Gestational diabetes requiring insulin 09/20/2024 Travel 09/18/2024 Orders Only Maternal- Medicine at [facility] [address] [place] [address] Corby Rose, OSEAS Gestational diabetes requiring insulin; Elevated blood pressure affecting , antepartum; Insulin controlled gestational diabetes mellitus (GDM) in third trimester; Abnormal liver enzymes 09/14/2024 Orders Only Maternal- Medicine at [facility] [address] [place] [address] Torrie Posada RN 09/12/2024 10:00 AM EDT Office Visit Maternal- Medicine at [facility] [address] [place] [address] Ruthann Miller, HU Insulin controlled gestational diabetes mellitus (GDM) in third trimester; Abnormal liver enzymes; Abnormal genetic test; Gestational diabetes requiring insulin; Elevated blood pressure affecting , antepartum 09/12/2024 Documentation Maternal- Medicine at [facility] [address] [place] [address] Ruthann Miller PA-C 09/12/2024 Travel 09/06/2024 Orders Only Maternal- Medicine at [facility] [address] [place] [address] Yesi Meade, BEVERAGE DISTILLER-CNM 09/05/2024 Telephone Maternal- Medicine at [facility] [address] [place] [address] Aranza Beltran RN 09/05/2024 Orders Only Maternal- Medicine at [facility] [address] [place] [address] Jackson Cruz MD 08/31/2024 1:30 PM EDT Support Visit Maternal- Medicine at [facility] [address] [place] [address] Cristiana Zuñiga, RN Dario, Nereyda, MUNIRA Gestational diabetes mellitus (GDM) in third trimester, gestational diabetes method of control unspecified (Primary Dx) 08/31/2024 Travel 08/30/2024 Orders Only Maternal- Medicine at [facility] [address] [place] [address] Ref Prov, Not In System 08/30/2024 Abstract Maternal- Medicine at [facility] [address] [place] [address] External, Scanning Provider from Last 3 Months Family History Medical History Relation Name Comments Asthma Father Atrial fibrillation Father COPD Father Diabetes Father Heart disease Father Hyperlipidemia Father Hypertension Father Kidney disease Father Stroke Father Afrrukh Breast Cancer Maternal Aunt Farrukh Breast Cancer [...] PM EDT Office Visit Maternal- Medicine at [facility] [address] [place] [address] Siria Rebolledo, DEBBIE-JORDAN [address] [place] [address] 10/16/2024 2:00 PM EDT Office Visit Maternal- Medicine at [facility] [address] [place] [address] Vy Pemberton MD [address] [facility] [address] [place] [address] Health Maintenance Due Date Last Done Comments Depression Screening 2007 Adult BMI Follow Up Plan 2013 Influenza Vaccine 11/27/2024 01/30/2015, 02/13/2009 Adult BMI Screening 09/12/2025 09/12/2024 Tobacco Screening 09/12/2025 09/12/2024 Pap Smear 06/20/2027 06/19/2024 DTaP,Tdap and Td Vaccines (7 - Td or Tdap) 06/26/2032 06/26/2022, 08/10/2000, 08/04/1996, Additional history exists Medical Devices Not on file Procedures Procedure Name Priority Date/Time Associated Diagnosis Comments CBC (NO DIFF) Routine 09/12/2024 Insulin controlled gestational diabetes mellitus (GDM) in third trimester Abnormal liver enzymes Elevated blood pressure affecting , antepartum PROTEIN CREAT RATIO Routine 09/12/2024 Gestational diabetes requiring insulin Elevated blood pressure affecting , antepartum GLUCOSE RANDOM OR FASTING Routine 08/31/2024 Gestational diabetes mellitus (GDM) in third trimester, gestational diabetes method of control unspecified GLU 1H POST 50G LOAD Routine 08/23/2024 from Last 3 Months Results * Urine protein creatinine ratio (09/12/2024) Prot/Creat Ratio, Ur see scanned report MANUALLY TRANSCRIBED RESULTS Urine Urine specimen collection, clean catch / Unknown 09/12/2024 us Ruthann Miller PA-C URINE ORDERABLES Final Resu lt MANUALLY TRANSCRIBED RESULTS * CBC without diff (09/12/2024) CBC, Platelet Ct, and Diff see scanned report MANUALLY TRANSCRIBED RESULTS Blood Venous blood / Unknown 09/12/2024 us Ruthann Miller PA-C LAB BLOOD ORDERABLES Final Result MANUALLY TRANSCRIBED RESULTS * Glucose random or fasting- POCT (08/31/2024) External Glucose Fasting Or Random (Fbs) 99 MANUALLY TRANSCRIBED RESULTS Blood Venous blood / Unknown 08/31/2024 us Jackson Cruz MD LAB BLOOD ORDERABLES Final Re sult MANUALLY TRANSCRIBED RESULTS * Glucose 1h post 50g load (08/23/2024) Glucose, 1 hr PP 50GM dose 181 MANUALLY TRANSCRIBED RESULTS Blood Venous blood / Unknown us Not In System Ref Prov LAB BLOOD ORDERABLES Breanna l Result Performing Organization Address City/[facility]/ZIP Co de Phone Number MANUALLY TRANSCRIBED RESULTS from Last [address] [place] [address] [facility]
--- OUTSIDE RECORDS SUMMARY | 2024-09-30 09:03 | XMS_ITS | Encounter Summary ---
Author Organization [facility] Address [address] [id number] Care Team Providers Care Director Heart Name Role Phone Robles Goldsmith DO Unavailable [phone] Josefina Harris RN Unavailable [phone] Source Comments In the event this information is protected by the Federal Confidentiality of Alcohol and Drug AbusePatient Records regulations: The Federal rules restrict any use of the information to criminally investigate or prosecute any alcohol or drug abuse patient.[facility] Encounter Details Date Type Department Care Team (Late st Contact Info) Description 06/18/2023 Patient [facility] [address] [place] [address] Fina Davalos, [address] [address] Appointment scheduling Social History Tobacco [...] on filedocumented in this encounter Care Teams Director Heart Relationship Specialty Start Date End Date Robles Goldsmith DO [address] [facility] [address] [place] [address] Referring Obstetrics 10/13/22 [place] [address] [place] [address] Specialty Gas Tester 04/12/24 documented as of this encounter
--- OUTSIDE RECORDS SUMMARY | 2024-09-30 09:04 | XMS_ITS | Encounter Summary ---
Author Organization [facility] Address [address] [place] [address] Care Team Providers Care Email Marketing Coordinator Name Role Phone Omer Velazquez MD Primary Care Provider [phone] Encounter Details Date Type Department Care Team (Late st Contact Info) Description 05/01/2024 Abstract [facility] OB [address] [place] [address] Saravanan Ahumada, DO [address] [place], [facility] Social [...] EDT Ancillary Procedure [facility] B[facility] OB [address] [facility] [place] [address] 10/02/2024 11:00 AM EDT Routine [facility] BCP OB [address] [facility] [place] [address] Saravanan Ahumada, DO [address] [facility] [place] [address] 07/24/2025 9:15 AM EDT Office Visit [facility] [address] [place] [address] documented as of this encounter Goals Goal Patient Goal Type Associated Problems Recent Progress Patient-Stated? Author Reminders Care Plan OB Reminders No Open Scheduling, Background documented as of this encounter Visit Diagnoses Not on filedocumented in this encounter Additional Health Concerns Active Problems Noted Date Diagnosed Date OB Reminders 04/30/2024 documented as of this encounter Care Teams Email Marketing Coordinator Relationship Specialty Start Date End Date Omer Velazquez MD [address] [place] [address] PCP - General Internal Medicine 10/05/22 documented as of this encounter
--- OUTSIDE RECORDS SUMMARY | 2024-09-30 09:04 | XMS_ITS | Encounter Summary ---
Author Organization [facility] Address [address] [place] [address] Care Team Providers Care Weight Control Engineer Name Role Phone Robles Goldsmith DO Unavailable [phone] Josefina Harris RN Unavailable [phone] Source Comments In the event this information is protected by the Federal Confidentiality of Alcohol and Drug AbusePatient Records regulations: The Federal rules restrict any use of the information to criminally investigate or prosecute any alcohol or drug abuse patient.[facility] Encounter Details Date Type Department Care Team (Late st Contact Info) Description 09/10/2023 Patient Msg Reproductive Endocrinology Infertility [address] [address] Haritha Casiano APRN.SHOP STEWARD [address] [place] [address] IUI facts Social History Tobacco Use Types [...] on filedocumented in this encounter Care Teams Weight Control Engineer Relationship Specialty Start Date End Date Robles Goldsmith DO [address] [facility] [address] [place] [address] Referring Obstetrics 10/13/22 [place] [address] [place] [address] Specialty Pool Servicer 04/12/24 documented as of this encounter
--- OUTSIDE RECORDS SUMMARY | 2024-09-30 09:04 | XMS_ITS | Encounter Summary ---
Author Organization [facility] Address [address] [place] [address] Care Team Providers Care Golf Teacher Name Role Phone Omer Velazquez MD Primary Care Provider [phone] Encounter Details Date Type Department Care Team (Late st Contact Info) Description 01/13/2023 Orders Only [facility] [address] [facility] [address] [place] [phone] Shelby Hernandez PA [address] [facility] [address] [place] [address] Social History Tobacco Use Types Packs/Day Years [...] EDT Ancillary Procedure [facility] [address] [place] [address] 10/02/2024 11:00 AM EDT Routine [facility] [address] [place] [address] Saravanan Ahumada, [address] [place] [address] [place] [address] 07/24/2025 9:15 AM EDT Office Visit [facility] [address] [facility] [address] [place] [phone] documented as of this encounter Visit Diagnoses Not on filedocumented in this encounter Care Teams Golf Teacher Relationship Specialty Start Date End Date Omer Velazquez MD [address] [facility] [address] [place] [address] PCP - General Internal Medicine 10/05/22 documented as of this encounter
--- OUTSIDE RECORDS SUMMARY | 2024-09-30 09:04 | XMS_ITS | Encounter Summary ---
Author Organization [facility] Address [address] [place] [address] Care Team Providers Care Vp Data Name Role Phone Robles Goldsmith DO Unavailable [phone] Josefina Harris RN Unavailable [phone] Source Comments In the event this information is protected by the Federal Confidentiality of Alcohol and Drug AbusePatient Records regulations: The Federal rules restrict any use of the information to criminally investigate or prosecute any alcohol or drug abuse patient.[facility] Encounter Details Date Type Department Care Team (Late st Contact Info) Description 02/17/2024 Patient Msg Reproductive Endocrinology Infertility [address] [place] [address] Shaina Edge MD [address] [id number] PCOS supplements Social History Tobacco Use Types [...] is lower risk 4 12/21/2023 Data from: https://www.neighborhoodatlas.medicine.[facility]/. Last address used for calculation [address] 12/21/2023 Comments No Sex [...] on filedocumented in this encounter Care Teams Vp Data Relationship Specialty Start Date End Date Robles Goldsmith DO [address] [place] [address] Referring Obstetrics 10/13/22 [place] [address] [address] [place], [place] [id number] Specialty Senior Sustainability Advisor 04/12/24 documented as of this encounter
--- OUTSIDE RECORDS SUMMARY | 2024-09-30 09:04 | XMS_ITS | Encounter Summary ---
Author Organization [facility] Address [address] [place] [address] Care Team Providers Care Charging Board Operator Name Role Phone Robles Goldsmith DO Unavailable + [phone] Josefina Harris RN Unavailable [phone] Source Comments In the event this information is protected by the Federal Confidentiality of Alcohol and Drug AbusePatient Records regulations: The Federal rules restrict any use of the information to criminally investigate or prosecute any alcohol or drug abuse patient.[facility] Encounter Details Date Type Department Care Team (Late st Contact Info) Description 10/22/2023 Patient Msg Reproductive Endocrinology Infertility [address] [place], [place] [phone] Provider, Alli 10/26/23 Social History Tobacco Use [...] on filedocumented in this encounter Care Teams Charging Board Operator Relationship Specialty Start Date End Date Robles Goldsmith [address] [facility] [address] [place] [address] Referring Obstetrics 10/13/22 [place] [address] [place] [address] Specialty Pre Wave Assembler 04/12/24 documented as of this encounter
--- OUTSIDE RECORDS SUMMARY | 2024-09-30 09:04 | XMS_ITS | Encounter Summary ---
Author Organization [facility] Address [address] [place] [address] Care Team Providers Care Warehouse Supervisor 3Rd Shift Name Role Phone Robles Goldsmith DO Unavailable [phone] Josefina Harris RN Unavailable [phone] Source Comments In the event this information is protected by the Federal Confidentiality of Alcohol and Drug AbusePatient Records regulations: The Federal rules restrict any use of the information to criminally investigate or prosecute any alcohol or drug abuse patient.[facility] Encounter Details Date Type Department Care Team (Late st Contact Info) Description 01/13/2023 Patient Msg Reproductive Endocrinology Infertility [address] [place], [place] [phone] Provider, Ccf Bloodwork results Social History Tobacco [...] on filedocumented in this encounter Care Teams Warehouse Supervisor 3Rd Shift Relationship Specialty Start Date End Date Robles Goldsmith DO [address] [facility] [address] [place] [address] Referring Obstetrics 10/13/22 [place] [address] [place] [address] Specialty Furnace Converter 04/12/24 documented as of this encounter
--- OUTSIDE RECORDS SUMMARY | 2024-09-30 09:04 | XMS_ITS | Encounter Summary ---
Author Organization [facility] Address [address] [place] [address] Care Team Providers Care Pillowcase Cleaner Name Role Phone Omer Velazquez MD Primary Care Provider [phone] Encounter Details Date Type Department Care Team (Late st Contact Info) Description 01/06/2023 Abstract [facility] [address] [facility] [address] [place] [phone] Robles Goldsmith, DO [address] [facility] [address] [place] [address] Social History Tobacco Use Types Packs/Day Years [...] Procedure [facility] [address] [place] [address] 10/02/2024 11:00 AM EDT Routine [facility] [address] [place] [address] Saravanan Ahumada, DO [address] [place] [address] [place] [address] 07/24/2025 9:15 AM EDT Office Visit [facility] [address] [place] [address] documented as of this encounter Visit Diagnoses Not on filedocumented in this encounter Care Teams Pillowcase Cleaner Relationship Specialty Start Date End Date Omer Velazquez MD [address] [place] [address] PCP - General Internal Medicine 10/05/22 documented as of this encounter
--- OUTSIDE RECORDS SUMMARY | 2024-09-30 09:04 | XMS_ITS | Encounter Summary ---
Author Organization [facility] Address [address] [place] [address] Care Team Providers Care Cokeman Name Role Phone Omer Velazquez MD Primary Care Provider [phone] Encounter Details Date Type Department Care Team (Late st Contact Info) Description 07/20/2023 Orders Only [facility] [address] [place] [phone] A, Unknown Practice [address] [place], [place] [address] Social History Tobacco Use Types Packs/Day Years [...] Procedure [facility] [address] [place] [address] 10/02/2024 11:00 AM EDT Routine [facility] [address] [place] [address] Saravanan Ahumada, DO [address] [place] [address] [place] [address] 07/24/2025 9:15 AM EDT Office Visit [facility] [address] [place] [address] documented as of this encounter Procedures Procedure Name Priority Date/Time Associated Diagnosis Comments SCANNED LABS Routine 07/20/2023 2:45 PM EDT documented in this encounter Results * SCANNED LABS (07/20/2023 2:45 PM EDT) us Unknown Practice A LAB CHG PERFORMABLES Final Re sult documented in this encounter Visit Diagnoses Not on filedocumented in this encounter Care Teams Cokeman Relationship Specialty Start Date End Date Omer Velazquez MD [address] [place] [address] PCP - General Internal Medicine 10/05/22 documented as of this encounter
--- OUTSIDE RECORDS SUMMARY | 2024-09-30 09:04 | XMS_ITS | Encounter Summary ---
Author Organization [facility] Address [address] [place] [address] Care Team Providers Care Pipeline Superintendent Division Name Role Phone Omer Velazquez MD Primary Care Provider Encounter Details Date Type Department Care Team (Late st Contact Info) Description 05/01/2024 Abstract [facility] [address] [place] [address] Saravanan Ahumada, DO [address] [place], [facility] Social History [...] [address] [facility] [place] [address] 10/02/2024 11:00 AM EDT Routine [facility] OB [address] [facility] [place] [address] Saravanan Ahumada, DO [address] [facility] [place] [address] 07/24/2025 9:15 AM EDT Office Visit [facility] [address] [place] [address] documented as of this encounter Goals Goal Patient Goal Type Associated Problems Recent Progress Patient-Stated? Author Reminders Care Plan OB Reminders No Open Scheduling, Background documented as of this encounter Visit Diagnoses Not on filedocumented in this encounter Additional Health Concerns Active Problems Noted Date Diagnosed Date OB Reminders 04/30/2024 documented as of this encounter Care Teams Pipeline Superintendent Division Relationship Specialty Start Date End Date Omer Velazquez MD [address] [place] [address] PCP - General Internal Medicine 10/05/22 documented as of this encounter
--- OUTSIDE RECORDS SUMMARY | 2024-09-30 09:04 | XMS_ITS | CCD ---
Author Organization [facility] ion [facility] Care Team Providers Care Foreign Correspondent Name Role Phone LITO VELAZQUEZ Admitting Unavailable LITO VELAZQUEZ Attending Unavailable Josefina Kay Unavailable Robles Goldsmith DO Unavailable [phone] FEDE HAIRSTON Referring Unav Lito Duarte MD Primary Care Provider JAILENE HOWARD Referring Unavailable FEDE HAIRSTON Referring Unav ailable FEDE HAIRSTON Referring Unav Lito Duarte MD Primary Care Provider [phone] RUBY CANO Attending Unavailable LITO VELAZQUEZ Primary Care Unavailable GABRIEL BLACKWELL Attending Unavailable LITO VELAZQUEZ Primary Care Unavailable Josefina Harris RN Unavailable Lito Velazquez MD Primary Care Provider Jaime Davies RN Attending Provider Unavailable Primary Care Provider UnavailJosefina Thomas RN Unavailable GALLAGHER MIRTA Attending Unavailable ATTARAN, DESHAWN Referring Unavailable ATTARAN, DESHAWN Attending Unavailable MINDZORA, ORTEGA Referring Unavailable MINDZORA, ORTEGA Referring Unavailable MINDZORA, ORTEGA Attending Unavailable MINDZORA, ORTEGA Referring Unavailable GALLAGHER, MIRTA Referring Unavailable MINDZORA, ORTEGA Attending Unavailable MINDZORA, ORTEGA Referring Unavailable MINDZORA, ORTEGA Referring Unavailable MINDZORA, ORTEGA Referring Unavailable MINDZORA, ORTEGA Attending Unavailable MINDZORA, ORTEGA Referring Unavailable TANTIBHEDHYANGKUL, JULIERUT Attending Unav ailable MINDZORA, ORTEGA Attending Unavailable SELF Referring Unavailable TANTIBHEDHYANGKAMARA, FEDE Attending Unav ailable MINDKALI, ORTEGA Referring Unavailable VANESSA VO Attending Unavailable MINDKALI, ORTEGA Referring Unavailable МАРИЯ LABOY Attending Unavailable NEREYDA ZHENG Attending Unavailable ZITA, SARAVANAN R Referring Unavailable DEEPIKA, RUTHANN Gerber Attending Unavailable ZITA, SARAVANAN R Referring Unavailable ALTON REBOLLEDO Attending Unavailable ZITA, SARAVANAN R Referring Unavailable ZITA, SARAVANAN Attending Unavailable ANDREW FERRER Attending Unavailable ZITA, SARAVANAN Attending Unavailable ZITA, SARAVANAN Referring Unavailable ZITA, SARAVANAN Attending Unavailable LITO VELAZQUEZ Attending Unavailable RUPAL PATEL Attending Unavailable ZITA, SARAVANAN Attending Unavailable ZITA, SARAVANAN Referring Unavailable ZITA, SARAVANAN Attending Unavailable CESAR, LITO Ribeiro Referring Unavailable ROBLES GOLDSMITH Attending Unavailable ZITA, SARAVANAN Attending Unavailable Lito Velazquez Primary Care Unavailable Jaime Davies Attending Unavailable Jaime Davies Admitting Unavailable Medications Current Medications Medication Drug Class(es) Dates Sig (Normalized) Sig (Original) acetaminophen 325 mg oral capsule (1 source) Start: 06-25-2019 take 2 capsules by mouth every four to six hours as needed for pain Acetaminophen 325 mg capsule Active 650 MG PO EVERY 4-6 HOURS as needed for pain 60 June 25, 2019 12:00am [id number] 200 actuat albuterol 0.09 mg/actuat metered dose inhaler (16 sources) beta2-Adrenergic Agonist Start: 08-15-2024 End: 08-15-2025 take 2 puff(s) by inhalation every six hours for wheezing albuterol HFA (Ventolin HFA) 90 mcg/act inhaler Indications: Seasonal allergies Inhale 2 puffs every 6 (six) hours if needed for wheezing 18 g 5 08/15/2024 08/15/2025 Active Blood Glucose Monitoring Suppl (D-Care Glucometer) w/Device kit (12 sources) Start: 08-25-2024 End: 08-25-2025 Blood Glucose [...] Active blood-glucose sensor (DEXCOM G7 SENSOR) device (4 sources) Start: 09-12-2024 blood-glucose sensor (DEXCOM G7 SENSOR) device Indications: Gestational diabetes requiring insulin , Elevated blood pressure affecting , antepartum Use to monitor blood glucose. Change every 10 days 5 each 09/12/2024 Active cholecalciferol 0.05 mg oral tablet [...] ml insulin glargine 100 unt/ml pen injector (12 sources) Insulin Analog Start: 09-20-2024 insulin glargine (LANTUS SOLOSTAR U-100 INSULIN) 100 unit/mL (3 mL) insulin pen Indications: Gestational diabetes requiring insulin Inject 16 units every evening. Prime with 2 units. 15 mL 2 09/20/2024 Active Start: 09-12-2024 End: 09-20-2024 Lantus SoloStar 100 UNIT/ML pen Inject 12 units every evening. Prime with 2 units. 09/12/2024 Active isopropyl alcohol 0.7 ml/ml medicated pad (12 sources) Start: 08-25-2024 Alcohol Swabs (Alcohol Prep Pad) 70 % pads Indications: Gestational diabetes mellitus (GDM), antepartum, gestational diabetes method of control unspecified ([facility]) , Elevated glucose tolerance test Apply 1 [...] ( 1 PO) Take by mouth Active [id number] acid ( 19) 29 mg iron- 1 mg tablet,chewable (10 sources) [id number] acid ( 19) 29 mg iron- 1 mg tablet,chewable Chew 1 tablet and swallow in the morning. Active valACYclovir 500 mg oral tablet (11 sources) Herpesvirus Nucleoside Analog DNA Polymerase Inhibitor, [...] Dates Sig (Normalized) Sig (Original) chorionic gonadotropin 25096 unt/ml injectable solution (13 sources) Gonadotropin Start: 02-17-2024 End: 03-17-2024 inject 22775 [IU] by subcutaneous injection once chorionic gonadotropin [...] propionate 0.05 mg/actuat metered dose nasal spray (14 sources) Corticosteroid Start: 03-08-2024 End: 07-17-2024 fluticasone (Flonase) 50 MCG/ACT nasal spray 2 sprays in the morning. 03/08/2024 07/17/2024 Discontinued Start: 03-08-2024 End: 06-06-2024 take 2 spray(s) nasal route once daily fluticasone (Flonase) 50 mcg/actuation nasal spray Indications: Chronic allergic rhinitis Administer 2 sprays into each nostril once daily. 48 mL 3 03/08/2024 06/06/2024 Active End: 09-20-2024 take 1 spray(s) nasal route in the morning fluticasone propionate (FLONASE) 50 mcg/actuation nasal spray Administer 1 spray into each nostril in the morning. 09/20/2024 Discontinued (Patient Stopped On Own) iv contrast (will be provided with radiology [...] on above: Take 1 tablet by alverto once daily for 5 days. Menstrual cycle day 3-7 Take 2 tablets by mo ut once daily. Take day 3-7 of her cycle medroxyPROGESTERone acetate 10 mg oral tablet (20 sources) Progestin Start: 2022 End: 2024 medroxyPROGESTERone (Provera) 10 MG tablet 09/09/2023 03/27/2024 Discontinued Comment on above: Take 1 tablet by alverto once daily for 10 days. 24 hr [...] on above: Take 3 tablets by mo [facility] daily with breakfast. Start with 1 tablet daily and slowly increase the dose up to 3 tablets daily. progesterone 200 mg oral capsule (20 sources) Progesterone Start: 10-26-2023 End: 09-11-2024 progesterone micronized (PROMETRIUM) 200 mg capsule Use 1 capsule vaginally two times a day. 180 capsule 10/26/2023 09/11/2024 Discontinued End: 09-20-2024 take 1 capsule by mouth in the morning progesterone (PROMETRIUM) 200 mg capsule Take 1 capsule (200 mg total) by mouth in the morning. 09/20/2024 Discontinued (Therapy completed) Problems Active Problems Problem Classification Problem Date [...] tolerance complicating ; childbirth; or the puerperium (20 sources) Gestational diabetes mellitus; Translations: [Gestational diabetes mellitus in , unspecified control] Onset: 5 08-31-2024 Episodic Disorders of teeth and jaw (3 sources) Temporomandibular joint disorder; Translations: [Unspecified temporomandibular joint disorder, unspecified side] Onset: 4 03-08-2024 Episodic Female infertility (12 sources) Female infertility; Translations: [Female infertility, unspecified] Onset: 4 09-10-2023 Chronic Heart valve disorders (4 sources) Heart murmur; Translations: [Cardiac murmur, unspecified] 07-18-2024 Episodic Hypertension complicating ; childbirth and the puerperium (7 sources) Hypertension complicating ; Translations: [Unspecified maternal [...] Onset: 4 07-13-2023 Chronic Other liver diseases (6 sources) Liver enzymes abnormal; Translations: [Abnormal levels of other serum enzymes] Onset: 5 09-12-2024 Episodic Other liver diseases (1 source) Abnormal levels of other serum enzymes; Translations: [Abnormal levels of other serum enzymes] Onset: 5 Episodic Other nervous system disorders (1 source) [...] 08-17-2023 Chronic Other and delivery including normal (17 sources) test positive; Translations: [Encounter for test, result positive] 03-16-2024 Episodic Other screening for suspected conditions (not mental disorders or infectious disease) (4 sources) Cancer cervix screening status; Translations: [Encounter [...] [31 weeks gestation of ] 09-13-2024 Episodic Residual codes; unclassified (2 sources) Gestation period, 32 weeks; Translations: [32 weeks gestation of ] 09-25-2024 Episodic Superficial injury; contusion (1 source) Contusion [...] urogenital system, unspecified] Onset: 3 12-29-2022 Chronic Viral infection (2 sources) Herpesviral [...] Test Name Value Interpretation Reference Range Facility OB BPP W NON-STRESS on 09-27-2024 [place] [address] Ultrasound Report Signed Patient: LISSA RIVAS MR#: [id number] : 1995 Acct:[id number] Age/Sex: 29 / F ADM Date: 09/27/24 Loc: [facility] 250-[address]: Saravanan Ahumada D.O. Ordering Physician: Saravanan Ahumada D.O. Date of Service: 09/27/24 Procedure(s): US OB BPP w non-stress Accession Number(s): [id number] cc: Saravanan Ahumada D.O.; LITO VELAZQUEZ [place] [id number] Patient Name: LISSA RIVAS MRN: [facility]:[id number] date: 1995 Sex: F Assigned Patient Location: [facility] Current Patient Location: [facility] Accession/Order Number: [id number] Exam Date: 09/27/2024 17:07 Report Date: 09/27/2024 17:08 At the request of: SARAVANAN AHUMADA DO Procedure: US OB BPP w non-stress Biophysical profile. Reason for exam: Gestational diabetes. COMPARISON: None. TECHNIQUE: Transabdominal imaging of the gravid uterus was obtained. FINDINGS: The deck officer reports the biophysical profile of 8 out of 8. RAKESH is normal at 18.6 cm. heart rate 145 bpm. US/US OB BPP w non-stress IMPRESSION: BPP 8 out of 8. Impression dictated by: Navjot Harmon Jr., D.O. 09/27/2024 5:08 PM Dictation Location: [place] [address] Electronically authenticated by: [id number] Y Date: 09/27/2024 17:08 Dictated By: Navjot Harmon M.D. Signed By: 09/27/24 1711 DD/ 1708 TD/TT: Tank Car Loader: [facility] Radiology, Radiologist, - 09/27/2024 [place] [address] Ultrasound Report Signed Patient: LISSA RIVAS MR#: [id number] : 1995 Acct:[id number] Age/Sex: 29 / F ADM Date: 09/27/24 Loc: [facility] 250-[address]: Saravanan Ahumada D.O. Ordering Physician: Saravanan Ahumada D.O. Date of Service: 09/27/24 Procedure(s): US OB BPP w non-stress Accession Number(s): [id number] cc: Saravanan Ahumada D.O.; LITO VELAZQUEZ [place] [id number] Patient Name: LISSA RIVAS MRN: [facility]:[id number] date: 1995 Sex: F Assigned Patient Location: [facility] Current Patient Location: [facility] Accession/Order Number: [id number] Exam Date: 09/27/2024 17:07 Report Date: 09/27/2024 17:08 At the request of: SARAVANAN AHUMADA DO Procedure: US OB BPP w non-stress Biophysical profile. Reason for exam: Gestational diabetes. COMPARISON: None. TECHNIQUE: Transabdominal imaging of the gravid uterus was obtained. FINDINGS: The deck officer reports the biophysical profile of 8 out of 8. RAKESH is normal at 18.6 cm. heart rate 145 bpm. US/US OB BPP w non-stress IMPRESSION: BPP 8 out of 8. Impression dictated by: Navjot Harmon Jr., D.O. 09/27/2024 5:08 PM [facility] by: [id number] Y Date: 09/27/2024 17:08 Dictated By: Navjot Harmon M.D. Signed By: 09/27/24 171 DD/ 170 TD/TT: Tank Car Loader: [facility] Radiology Study observation (narrative) [facility] US OB BPP W NON-STRESS Ordered By: Radiologist Radiology on 09-27-2024 [facility] Work Phone: Urinalysis macro (dipstick) panel (U)on 09-25-2024 Bilirubin, UA Negative Negative - 4(70) +++ mg/dL [facility] Blood, UA Negative Negative - 50 Jorge Luis/mcL [facility] Clarity, UA Clear [facility] Color, UA Yellow [facility] Glucose, UA Negative Negative - 1999(110) ++++ mg/dL [facility] Interpretation and review of laboratory results Abnormal [facility] Ketones, UA Positive Negative - 160(16) ++++ mg/dL [facility] Comment on above: 15mg/dL Leukocytes, UA Negative Negative - 500+++ Flori/mcL [facility] Nitrite, UA Negative Negative - Positive [facility] pH, UA 7 5 - 9 [facility] Protein, UA Positive Negative - 1999(20) ++++ mg/dL [facility] Comment on above: 30mg/dL Spec Grav, UA 1.02 1 - 1.03 [facility] Urobilinogen, UA 0.2 0.2 - 12 mg/dL [facility] TB TOTAL PROTEIN 24 HOUR UR INEon 09-14-2024 Interpretation and review of laboratory results Abnormal [facility] Protein (U) [Mass/Vol] 16.8 mg/dL High NINF - 11.9 mg/dL [facility] TOTAL PROTEIN 24 HOUR URINE 420 High NINF [facility] TOTAL VOLUME 24 HOUR URINE 2500 mL/24hr [facility] Urinalysis macro (dipstick) panel (U)on 09-13-2024 Bilirubin, UA Negative Negative - 4(70) +++ mg/dL [facility] Blood, UA Negative Negative - 50 Jorge Luis/mcL [facility] Clarity, UA Clear [facility] Color, UA Yellow [facility] Glucose, UA Negative Negative - 1999(110) ++++ mg/dL [facility] Interpretation and review of laboratory results Normal [facility] Ketones, UA Negative Negative - 160(16) ++++ mg/dL [facility] Leukocytes, UA Negative Negative - 500+++ Flori/mcL [facility] Nitrite, UA Negative Negative - Positive [facility] pH, UA 7 5 - 9 [facility] Protein, UA Negative Negative - 1999(20) ++++ mg/dL [facility] Spec Grav, UA 1.02 1 - 1.03 [facility] Urobilinogen, UA 0.2 0.2 - 12 mg/dL [facility] CBC without diffon CBC, Platelet Ct, and Diff see scanned report [facility] No Panel Informationon 09-12 [facility] UA (CLEAN/CATCH) SCRAPPER/PO RO IF IND.on 09-12-2024 BILIRUBIN URINE Negative NEGATIVE [facility] BLOOD URINE Negative NEGATIVE [facility] Clarity (U) CLEAR CLEAR [facility] Color (U) LT. YELLOW YELLOW [facility] GLUCOSE URINE UA Negative NEGATIVE mg/dL [facility] Interpretation and review of laboratory results Abnormal [facility] Ketones Ql (U) TRACE Abnormal NEGATIVE mg/dL [facility] Leukocyte esterase Test strip Ql (U) Negative NEGATIVE [facility] NITRITE URINE Negative NEGATIVE [facility] pH (U) 6.5 [pH] 5.0 - 9.0 [facility] PROTEIN URINE Negative NEG/TRACE mg/dL [facility] SPECIFIC GRAVITY URINE <=1.005 Abnormal 1.005 - 1.025 [facility] URINE MICROSCOPIC INDICATED NO [facility] UROBILINOGEN URINE 0.2 EU/dL 0.2 - 1.0 EU/dL [facility] Urine protein creatinine rat ioon 09-12-2024 Protein/Creatinine (U) [Mass ratio] see scanned report [facility] [place] [facility] US OB FOLLOW UP TRANSABDOMIN AL [...] II, MD, PHD at 08-Sep-2024 10:22:30 AM [facility] Normal Not Available Comment on above: Order Comment: US OB SCAN FOR GROWTH Estimated Date of Delivery: 11/19/24 Gestational Age as of 08/30/2024: 28w3d CNOVon 09-05-2024 CNOV Office Visit (OTMNCA ) LISSA RIVAS ([id number]) 1995 F Date Time Provider Department 09/05/24 1:45 PM МАРИЯ LABOY [facility] During your visit today, we recorded the following information about you: Мария Laboy MD 09/19/2024 3:43 PM Signed History ID: 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 HPI: Patient returns for established visit. She denies any issues related to her head neck. Denies any dysphagia or odynophagia. She is 28 weeks . Previous plasma metanephrines and normetanephrine's tested in May were within normal limits. Furthermore, CT neck, chest, abdomen pelvis last year was normal. PHYSICAL EXAM (detailed): Constitutional: * LMP 02/13/2024 * General appearance: Well developed, well nourished [...] or notable assymetries. Moist mucus membranes present. * Larynx: Base of tongue, valleculae, epiglottis and false vocal folds are normal in appearance per mirror exam. Neck: * Neck: The neck appears symmetric without scars, and on palpation is without masses, lymphadenopathy or crepitus. Trachea is midline. * Thyroid: There are no masses, thyromegaly, thyroid nodules or tenderness on palpation. 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 She has presently and is following up with her OB for that. I will follow-up with her in 2 years with repeat imaging. She will follow-up with me sooner if there are any new developments. 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 Problem List As Of Date 09/05/2024 Noted Resolved Seasonal allergies [J30.2] 10/05/2022 Diagnosed: [...] 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] 08/17/2023 Encounter Status:Closed by МАРИЯ LABOY on 09/19/24 Normal [facility] METANEPHRINES, FREE PLASMAon 09-04-2024 METANEPHRINE, PLASMA 19 pg/mL Normal 12-67 [facility] Comment on above: Order Comment: Speci men Type: BLOOD SPECIMENOrdering Facility: [facility] Address: [address] [place] [address] Result Comment: Refe rence Ranges: Hypertensive adult > or = 18 yrs old: 12-72 pg/mL Normotensive adult > or = 18 yrs old: 12-67 pg/mL Normotensive children < 18 yrs old: 10-95 pg/mL Performed By: #### P METAN ####[facility] [id number] [place] [address] [place] NORMETANEPHRINE, PLASMA 56 pg/mL Normal 18-101 [facility] Comment on above: Order Comment: Speci men Type: BLOOD SPECIMENOrdering Facility: [facility] Address: [address] [place] [address] Result Comment: Refe rence Ranges: Hypertensive adult > or = 18 yrs old: 24-145 pg/mL Normotensive adult > or = 18 yrs old: 18-101 pg/mL Normotensive children < 18 yrs old: 22-83 pg/mL Methyldopa may cause false elevation of normetanephrine levels in this assay. If patient is on methyldopa, interpret results with caution. Performed By: #### P METAN ####[facility] LABIA [id number] [place] [address] [place] Glucose random or fasting- P OCTon 08-31-2024 External Glucose Fasting Or Random (Fbs) 99 [facility] Ultrasound - Officeon 2024 Radiology Study observation (narrative) [facility] Radiology Study observation (narrative) [facility] ECH echo transthoracicon [facility] echo transthoracic [facility] Main [address] [address] Echocardiogram Signed Patient: Lissa Rivas MR#: [id number] : 1995 Acct:[id number] Age/Sex: 29 / F ADM Date: 08/24/24 Loc: Room: Type: [facility] Attending Dr: Jaime Davies RN, MSN, ANP-C Ordering Provider: JAIME DAVIES RN, MSN Date of Service: 08/24/24/ [facility] echo transthoracic: Palpitations. Murmur. Copies to: MD [...] Signed By: Iveth Ding MD 08/24/24 1835 Normal [facility] ALL CBC WITH AUTO DIFFon BASOPHILS ABSOLUTE AUTO 0 N S [facility] Basophils/100 WBC (Bld) 0.3 % 0.2 - 2.0 % [facility] Eosinophils/100 WBC (Bld) 1.4 % 0.9 - 7.0 % [facility] Erythrocyte distribution width (RBC) [Ratio] 13 % 11.0 - 15.0 % [facility] Hematocrit (Bld) [Volume fraction] 32 % Low 36.0 - 48.0 % [facility] Hemoglobin (Bld) [Mass/Vol] 10.6 g/dL Low 12.0 - 16.0 g/dL [facility] IMMATURE GRANULOCYTES ABS AUTO 0.06 High [facility] Immature granulocytes/100 WBC (Bld) 0.7 % High 0.0 - 0.5 % [facility] Interpretation and review of laboratory results Abnormal [facility] LYMPHOCYTES ABSOLUTE AUTO 1.7 [facility] Lymphocytes/100 WBC (Bld) 18.8 % Low 20.5 - 60.0 % [facility] MCH (RBC) [Entitic mass] 31.6 pg 26. 7 - 34.0 pg [facility] MCHC (RBC) [Mass/Vol] 33.1 g/dL 29.9 - 35.2 g/dL [facility] MCV (RBC) [Entitic vol] 95.5 fL 81.0 - 99.0 fL [facility] MONOCYTES ABSOLUTE AUTO 0.5 N [facility] Monocytes/100 WBC (Bld) 5.3 % 1.7 - 12.0 % [facility] NEUTROPHILS ABSOLUTE AUTO 6.5 [facility] Neutrophils/100 WBC (Bld) 73.5 % 43.0 - 75.0 % [facility] Platelet mean volume (Bld) [Entitic vol] 9.8 fL 9.5 - 13.5 fL [facility] TBH EO # 0.1 [facility] PLT 211 [facility] RBC 3.35 Low [facility] WBC 8.8 [facility] Glucose 1h post 50g loadon 0 08-23-2024 Glucose, 1 hr PP 50GM dose 181 [facility] No Panel Informationon 08-23 [facility] Urinalysis macro (dipstick) panel (U)on 08-16-2024 Bilirubin, UA Negative Negative - 4(70) +++ mg/dL [facility] Blood, UA Negative Negative - 50 Jorge Luis/mcL [facility] Clarity, UA Clear [facility] Color, UA Yellow [facility] Glucose, UA Positive Negative - 1999(110) ++++ mg/dL [facility] Comment on above: 100mg/dL Interpretation and review of laboratory results Abnormal [facility] Ketones, UA Positive Negative - 160(16) ++++ mg/dL [facility] Comment on above: 15mg/dL Leukocytes, UA Negative Negative - 500+++ Flori/mcL [facility] Nitrite, UA Negative Negative - Positive [facility] pH, UA 6.5 5 - 9 [facility] Protein, UA Negative Negative - 1999(20) ++++ mg/dL [facility] Spec Grav, UA 1.02 1 - 1.03 [facility] Urobilinogen, UA 0.2 0.2 - 12 mg/dL [facility] US OB INCOMPLETE ANATOMYon 0 08-07-2024 [place] [address] Ultrasound Report Signed Patient: LISSA RIVAS MR#: [id number] : 1995 Acct:[id number] Age/Sex: 29 / F ADM Date: 08/04/24 Loc: US Attending Dr: Saravanan Ahumada D.O. Ordering Physician: Saravanan Ahumada D.O. Date of Service: 08/04/24 Procedure(s): US OB incomplete anatomy Accession Number(s): [id number] cc: Saravanan Ahumada D.O.; LITO VELAZQUEZ [place] [id number] Patient Name: LISSA RIVAS MRN: [facility]:[id number] date: 1995 Sex: F Assigned Patient Location: Current Patient Location: Accession/Order Number: [id number] Exam Date: 08/07/2024 09:41 Report Date: 08/07/2024 09:48 At the request of: SARAVANNA AHUMADA DO Procedure: US OB incomplete anatomy [...] Gage M.D. 08/07/2024 9:48 AM Dictation Location: [place] [address] Electronically authenticated by: [id number] Y Date: 08/07/2024 09:48 Dictated By: Paula Gage M.D. Signed By: 08/07/24 0950 DD/ 7 TD/TT: Tank Car Loader: [facility] Radiology, Radiologist, - 08/07/2024 [place] [address] Ultrasound Report Signed Patient: LISSA RIVAS MR#: [id number] : 1995 Acct:[id number] Age/Sex: 29 / F ADM Date: 08/04/24 Loc: US Attending Dr: Saravanan Ahumada D.O. Ordering Physician: Saravanan Ahumada D.O. Date of Service: 08/04/24 Procedure(s): US OB incomplete anatomy Accession Number(s): [id number] cc: Saravanan Ahumada D.O.; LITO VLEAZQUEZ [place] [id number] Patient Name: LISSA RIVAS MRN: [facility]:[id number] date: 1995 Sex: F Assigned Patient Location: US Current Patient Location: Accession/Order Number: [id number] Exam Date: 08/07/2024 09:41 Report Date: 08/07/2024 [...] Gage M.D. 08/07/2024 9:48 AM Dictation Location: [place] [address] Electronically authenticated by: [id number] Y Date: 08/07/2024 09:48 Dictated By: Paula Gage M.D. Signed By: 08/07/2450 DD/ TD/TT: Tank Car Loader: [facility] Radiology Study observation (narrative) [facility] US OB INCOMPLETE ANATOMYOrde red By: Radiologist Radiology on 08-07-2024 [facility] Work Phone: Urinalysis macro (dipstick) panel (U)on 07-17-2024 Bilirubin, UA Negative Negative - 4(70) +++ mg/dL [facility] Blood, UA Positive Negative - 50 Jorge Luis/mcL [facility] Comment on above: Trace-lysed Clarity, UA Clear [facility] Color, UA Yellow [facility] Glucose, UA Negative Negative - 2000(110) ++++ mg/dL [facility] Interpretation and review of laboratory results Abnormal [facility] Ketones, UA Negative Negative - 160(16) ++++ mg/dL [facility] Leukocytes, UA Negative Negative - 500+++ Flori/mcL [facility] Nitrite, UA Negative Negative - Positive [facility] pH, UA 7 5 - 9 [facility] Protein, UA Trace Negative - 2000(20) ++++ mg/dL [facility] Spec Grav, UA 1.02 1 - 1.03 [facility] Urobilinogen, UA 0.2 0.2 - 12 mg/dL [facility] US OB 14+ WEEKS ANATOMY SCAN on [...] II, MD, PHD at 07-Jul-2024 06:23:52 AM [facility] Normal Not Available Comment on above: Order Comment: US OB ANATOMY SINGLE W US OB CERVICAL LENGTH Estimated Date of Delivery: 11/19/24 Gestational Age as of 06/19/2024: 18w1d C. trachomatis DNA JANESSA+probe Ql (Unsp spec)on 06-19-2024 Chlamydia Dna(Pcr) Negative [facility] Gonorrhoeae Dna(Pcr) Negative [facility] US OB LIMITED 1+ FETUSESon 0 06-19-2024 [...] II, MD, PHD at 20-Jun-2024 09:56:32 AM [facility] Normal Not Available Comment on above: Order Comment: US OB PLACENTA W US OB TRANSVAGINAL Estimated Date of Delivery: 11/19/24 Gestational Age as of 06/19/2024: 18w1d Ultrasound - Officeon 2024 [facility] US OB CERVICAL LENGTHon 04-30 [place] [address] Ultrasound Report Signed Patient: EMILEE RIVAS MR#: [id number] : 1995 Acct:[id number] Age/Sex: 29 / F ADM Date: 05/23/24 Loc: US Attending Dr: Saravanan Ahumada D.O. Ordering Physician: Saravanan Ahumada D.O. Date of Service: 05/23/24 Procedure(s): US OB cervical length Accession Number(s): [id number] cc: Saravanan Ahumada D.O.; LITO VELAZQUEZ [place] [address] Patient Name: EMILEE RIVAS MRN: [facility]:[id number] date: 1995 Sex: F Assigned Patient Location: Current Patient Location: US Accession/Order Number: [id number] Exam Date: 05/23/2024 23:10 Report Date: 05/23/2024 [...] Harmon Jr., D.O.05/23/2024 11:13 PM Dictation [facility] Electronically authenticated by: [id number] Y Date: 05/23/2024 23:13 Dictated By: Navjot Harmon M.D. Signed By: 05/23/242314 DD/ 12 TD/TT: Tank Car Loader: [facility] Radiology, Radiologist, - 05/24/2024 [place] [address] Ultrasound Report Signed Patient: EMILEE RIVAS MR#: [id number] : 1995 Acct:[id number] Age/Sex: 29 / F ADM Date: 05/23/24 Loc: US Attending Dr: Saravanan Ahumada D.O. Ordering Physician: Saravanan Ahumada D.O. Date of Service: 05/23/24 Procedure(s): US OB cervical length Accession Number(s): [id number] cc: Saravanan Ahumada D.O.; LITO VELAZQUEZ [place] [address] Patient Name: EMILEE RIVAS MRN: [facility]:[id number] date: 1995 Sex: F Assigned Patient Location: US Current Patient Location: US Accession/Order Number: [id number] Exam Date: 05/23/2024 23:10 Report Date: 05/23/2024 [...] Harmon Jr., D.O.05/23/2024 11:13 PM Dictation Location: [facility] Electronically authenticated by: [id number] Y Date: 05/23/2024 23:13 Dictated By: Navjot Harmon M.D. Signed By: 05/23/242314 DD/ 12 TD/TT: Tank Car Loader: [facility] Radiology Study observation (narrative) [facility] US OB CERVICAL LENGTHOrdered By: Radiologist Radiology on 05-23-2024 [facility] Work Phone: Unlisted Lab Teston 05-22-19 [facility] Urinalysis macro (dipstick) panel (U)on 05-22-2024 Bilirubin, UA Negative Negative - 4(70) +++ mg/dL [facility] Blood, UA Negative Negative - 50 Jorge Luis/mcL [facility] Clarity, UA Clear [facility] Color, UA Yellow [facility] Glucose, UA Negative Negative - 1999(110) ++++ mg/dL [facility] Interpretation and review of laboratory results Normal [facility] Ketones, UA Negative Negative - 160(16) ++++ mg/dL [facility] Leukocytes, UA Negative Negative - 500+++ Flori/mcL [facility] Nitrite, UA Negative Negative - Positive [facility] pH, UA 7 5 - 9 [facility] Protein, UA Negative Negative - 1999(20) ++++ mg/dL [facility] Spec Grav, UA 1.015 1 - 1.03 [facility] Urobilinogen, UA 0.2 0.2 - 12 mg/dL [facility] Urinalysis macro (dipstick) panel (U)on 05-15-2024 Bilirubin, UA Negative Negative - 4(70) +++ mg/dL [facility] Blood, UA Negative Negative - 50 Jorge Luis/mcL [facility] Clarity, UA Clear [facility] Color, UA Yellow [facility] Glucose, UA Negative Negative - 1999(110) ++++ mg/dL [facility] Interpretation and review of laboratory results Normal [facility] Ketones, UA Negative Negative - 160(16) ++++ mg/dL [facility] Leukocytes, UA Negative Negative - 500+++ Flori/mcL [facility] Nitrite, UA Negative Negative - Positive [facility] pH, UA 6 5 - 9 [facility] Protein, UA Negative Negative - 1999(20) ++++ mg/dL [facility] Spec Grav, UA 1.01 1 - 1.03 [facility] Urobilinogen, UA 0.2 0.2 - 12 mg/dL [facility] AFP Single Marker Scrn, Mate rnal, Serumon 04-21-2024 [facility] BOX TESTon 04-21-2024 BOX TEST SENT OUT 04/21/24 [facility] BOX1 [facility] BOX2 [facility] Drug Screen, Urineon 025 Benzodiazepines Negative [facility] Cocaine Metabolite Negative [facility] Opiates Negative [facility] Phencyclidine Negative [facility] Thc Marijuana, Urine Negative [facility] HBV surface Ag IA Qlon 04-21 Hepatitis B Surface Antigen Negative [facility] HCG ( test) Ql (U)o n 04-21-2024 Interpretation and review of laboratory results Abnormal [facility] Preg Test, Ur Positive Negative [facility] HCV Ab IA Qlon 04-21-2024 HCV Ab Ql (S) Non-Reactive [facility] HIV 1+2 Ab+HIV1 p24 Ag IA Ql on 04-21-2024 HIV 1&2 AB/AG Non-Reactive [facility] Hemoglobin A1con 04-21-2024 HbA1c (Bld) [Mass fraction] 5.4 % 4.0 - 6.0 % [facility] No Panel Informationon 04-21 [facility] Rubella IGG immune statuson 04-21-2024 Rubella immune IgG non immune [facility] T. pallidum IgG+IgM IA Ql (S )on 04-21-2024 Syphilis Non-Reactive [facility] Type and screenon 04-21-2024 Abo/Rh(D) Negative [facility] US OB TRANSVAGINALon 025 US OB TRANSVAGINAL [...] 9 weeks 0 days. Dictated and transcribed 04/21/24/dpalyce This report has been electronically signed and approved by the interpreting radiologist. Normal Not Available Comment on above: Order Comment: US OB TRANSVAGINAL Patient's last menstrual period was 02/13/2024 (approximate). Urinalysis macro (dipstick) panel (U)on 04-21-2024 Bilirubin, UA Negative Negative - 4(70) +++ mg/dL [facility] Blood, UA Negative Negative - 50 Jorge Luis/mcL [facility] Clarity, UA Clear [facility] Color, UA Yellow [facility] Glucose, UA Negative Negative - 1999(110) ++++ mg/dL [facility] Interpretation and review of laboratory results Normal [facility] Ketones, UA Negative Negative - 160(16) ++++ mg/dL [facility] Leukocytes, UA Negative Negative - 500+++ Flori/mcL [facility] Nitrite, UA Negative Negative - Positive [facility] pH, UA 7 5 - 9 [facility] Protein, UA Negative Negative - 2000(20) ++++ mg/dL [facility] Spec Grav, UA 1.02 1 - 1.03 [facility] Urobilinogen, UA 0.2 0.2 - 12 mg/dL [facility] CNNURSEon 2024 CNNURSE Nurse Visit (REIAV) LISSA RIVAS ([id number]) 1995 F Date Time Provider Department 04/03/24 11:[address] REJ REIAV During your visit today, we recorded the following information about you: Ortega Morrissey APRN.CNP 2024 4:38 PM Signed Lissa Rivas here [...] OB Ortega Morrissey APRN.JORDAN 2024 4:34 PM Referring Provider: ORTEGA MORRISSEY [[id number]] Allergies As of Date: 2024 (No Known Allergies) Date Reviewed: 02/23/2024 Reviewed by: Paula Hester RN - Fully Assessed Visit Diagnosis:Supervision of with history of infertility, first trimester [O09.01] Order(s):OBSTETRIC ULTRASOUND [facility] [5090535] Order #: [id number]. #:[id number] EWPOINTQty: 1 Prescriptions as of 2024 - [...] by JAILENE HOWARD on 04/03/24 Normal [facility] Examination level ultrasound on 2024 Indication Viability Impression - Single, live, intrauterine . - An intrauterine gestational sac with a yolk sac and pole is present. - Kremmling rump length measurement is NOT consistent with [...] Read By: Jailene Howard M.D. MATERNAL MEDICINE [facility] Radiology Study observation (narrative) Theresa torres [facility] Ultrasound - Officeon 2024 [facility] Drug Screen, Urineon 024 Amphetamine/Methamphetam ine Negative [facility] Barbiturates Negative [facility] Methadone Negative [facility] Oxycodone Negative [facility] CONSULT PROGon 03-20-2024 CONSULT PROG HNO ID: [id number] Author: FEDE HAIRSTON MD Service: ? Author Type: Physician Type: Consult Progress Note Filed: 03/20/2024 08:24 Note Text: Date of Consult: 02/17/2024 Lissa Iannello is a 28 year old female presenting [...] Hysteroscopy Laparoscopy OPK (Ovulation Predictor Kit) [facility] 10.91 High 01/04/2023 Saline Ultrasound Semen [...] visit. Either the patient or their legal b2b outside sales representative has been informed of the risks and benefits of -- and alternatives to -- treatment through a remote evaluation and consents to proceed with the evaluation remotely. I spent a total of 30 minutes on the date of the service which included preparing to see the patient, nmik-ro-avnf patient care, counseling and educating the patient/family/caregiv er, ordering medications, tests, or procedures, communicating results to the patient/family/caregiv er, and care coordination (not separately reported). MD Kim Branch MD Normal [facility] B-HCG SerPl-aCncon 4 HCG.beta subunit Qn 190.7 m[IU]/mL High <5.0 C [facility] Comment on above: Order Comment: Speci men Type: BLOOD SPECIMENOrdering Facility: [facility] Address: [address] [place] [address] Result Comment: LUCA TITATIVE HCG NORMAL RANGES Weeks of Gestation (Weeks Since LMP) 3 Weeks (5.8-71.2 mIU/mL) 4 Weeks (9.5-750 mIU/mL) 5 Weeks (217-7138 mIU/mL) 6 Weeks (158-49219 mIU/mL) 7 Weeks (3697-463372 mIU/mL) 8 Weeks (23660-390313 mIU/mL) 9 Weeks (42412-386075 mIU/mL) 10 Weeks (03831-679105 mIU/mL) 12 Weeks (04114-946880 mIU/mL) Referenced to 4th IS of NIBS Performed By: #### 2 1198-7 ####[facility] [id number] [place] [address] [place] B-HCG [facility] 4 HCG.beta subunit Qn 87.6 m[IU]/mL High <5.0 Cl [facility] Comment on above: Order Comment: Speci men Type: BLOOD SPECIMENOrdering Facility: [facility] Address: [address] [place] [address] Result Comment: LUCA TITATIVE HCG NORMAL RANGES Weeks of Gestation (Weeks Since LMP) 3 Weeks (5.8-71.2 mIU/mL) 4 Weeks (9.5-750 mIU/mL) 5 Weeks (217-7138 mIU/mL) 6 Weeks (158-63123 mIU/mL) 7 Weeks (3697-678749 mIU/mL) 8 Weeks (10555-149631 mIU/mL) 9 Weeks (94520-612723 mIU/mL) 10 Weeks (90196-688162 mIU/mL) 12 Weeks (11296-005931 mIU/mL) Referenced to 4th IS of NIBSC Performed By: #### 2 1198-7 ####[facility] [id number] [place] [address] [place] B-HCG SerPl-aCncon HCG.beta subunit Qn 21.9 m[IU]/mL High <5.0 Cl [facility] Comment on above: Order Comment: Speci men Type: BLOOD SPECIMENOrdering Facility: [facility] Address: [facility] [place] [address] Result Comment: LUCA TITATIVE HCG NORMAL RANGES Weeks of Gestation (Weeks Since LMP) 3 Weeks (5.8-71.2 mIU/mL) 4 Weeks (9.5-750 mIU/mL) 5 Weeks (217-7138 mIU/mL) 6 Weeks (158-68276 mIU/mL) 7 Weeks (3697-751500 mIU/mL) 8 Weeks (27176-659168 mIU/mL) 9 Weeks (15996-030128 mIU/mL) 10 Weeks (44549-741089 mIU/mL) 12 Weeks (47513-564985 mIU/mL) Referenced to 4th IS of [facility] Performed By: #### 2 1198-7 ####[facility] [id number] [address] OF [facility] Alexandra 03-13-2024 JORDANN Telephone (REIBD) LISSA RIVAS ([id number]) 1995 F Date Time Provider Department 03/13/24 FEDE HAIRSTON During your visit today, we recorded the following information about you: Ayanna Wise 03/13/2024 11:56 AM Signed Patient states she skipped this month and has +hpt, please follow up with patient. Ortega Morrissey, DEBBIE.WEED THINNER 03/13/2024 1:37 PM Signed Patient calls with [...] ordered: HCG x2 FYI Dr. Bill Morrissey, DYE BLENDER.WEED THINNER March 13, 2024 1:37 PM Allergies As of Date: 03/13/2024 (No Known Allergies) Date Reviewed: 02/23/2024 Reviewed by: Paula Hester, ARIC - Fully Assessed Reason for Visit: +hpt today/lmp 02/12 skipped treatment this month [Other] Primary Visit Diagnosis:Supervision of with history of infertility, first trimester [O09.01] Other Visit Diagnosis: examination or test, unconfirmed [Z32.00] Order(s):HCG QUANTITATIVE [SQHCGQT] Order #: [id number] STANDING Prescriptions as of 03/13/2024 - metFORMIN [...] 3-7 Encounter Status:Closed by ORTEGA MORRISSEY on 12/16/24 Normal [facility] Progest SerPl-mCncon 03-10-2 024 Progesterone [Mass/Vol] 17.8 ng/mL Normal See comment [facility] Comment on above: Order Comment: Speci men Type: BLOOD SPECIMENOrdering Facility: [facility] Address: [address] [place] [address] Result Comment: Mens trual Cycle Progesterone Reference Ranges: Follicular: <1.0 ng/mL Ovulation: <12.1 ng/mL Luteal: 1.8 to 23.9 ng/mL. Progesterone Reference Ranges vary by gestational period: First Trimester: 11.0 to 44.3 ng/mL Second Trimester: 25.4 to 83.3 ng/mL Third Trimester: 58.7 to 214 ng/mL Post menopausal Progesterone: <0.5 ng/mL Reference: 1. Progesterone (Progesterone III) [package insert V 1.0 Green[place]ic]. [employer], [place], [place]. December 2014. Performed By: #### 2 839-9 ####[facility] [id number] [address] OF [facility] Alexandra 02-28-2024 JORDANN Telephone (REIBD) LISSA RIVAS ([id number]) 1995 F Date Time Provider Department 02/28/24 FEDE HAIRSTON During your visit today, we recorded the following information about you: Joanna Garces 02/28/2024 8:23 AM Signed Pt is not financially clear yet should she still schedule it after she pays Ortega Morrissey, DEBBIE.WEED THINNER 02/28/2024 11:54 AM Signed Spoke with Thao, [...] cycle day 3-7 Authorizing Provider: ORTEGA MORRISSEY APRN.WEED THINNER February 28, 2024 11:54 AM Allergies As of Date: 02/28/2024 (No Known Allergies) Date Reviewed: 02/23/2024 Reviewed by: Paula Hester, RN - Fully Assessed Reason for Visit: ortega pt is not cleared for us should she still have it do [Other] Primary Visit Diagnosis:Female infertility [N97.9] Order(s):PROGESTERONE [SQPROG] Order #: [id number] FUTURE letrozole (FEMARA) 2.5 mg tabletTake 3 [...] by ORTEGA MORRISSEY on 02/28/24 Normal [facility] 25(OH)D3 [facility] 2023 25-hydroxyvitamin D3 [Mass/Vol] 49.3 ng/mL Normal 31.0-80.0 [facility] Comment on above: Order Comment: Speci men Type: BLOOD SPECIMEN [facility] Address: [address] [place] [address] Result Comment: Clas sification of 25 [place] Vitamin D status: Deficiency/Insufficiency: < or = 30 ng/ml. Sufficiency/Optimal Levels: 31-80 ng/mL Toxicity: > 100 ng/mL. Test performed by chemiluminescent immunoassay. Performed By: #### 1 989-3 #### [facility] CLIA [id number] [address] [place] [address] [place] [address] [place] 25-hydroxyvitamin D3 [Mass/V ol]on 02-23-2024 Interpretation and review of laboratory results Normal [facility] The reference range interval was based on an analysis of samples from healthy adults and may not pertain to children from 0-18 years old. [facility] CBC panel Auto (Bld)on 02-22 Erythrocyte distribution width (RBC) [Ratio] 12.4 % 11.5 - 15.0 % [facility] Hematocrit (Bld) [Volume fraction] 40.6 % 36.0 - 46.0 % [facility] Hemoglobin (Bld) [Mass/Vol] 13.5 g/dL 11.5 - 15.5 g/dL [facility] Interpretation and review of laboratory results Normal [facility] MCH (RBC) [Entitic mass] 31.1 pg 26. 0 - 34.0 pg [facility] MCHC (RBC) [Mass/Vol] 33.3 g/dL 30.5 - 36.0 g/dL [facility] MCV (RBC) [Entitic vol] 93.5 fL 80.0 - 100.0 fL [facility] Nucleated RBC (Bld) [#/Vol] NINF [facility] Platelet mean volume (Bld) [Entitic vol] 10.6 fL 9.0 - 12.7 fL [facility] Platelets (Bld) [#/Vol] 261 10*3/uL [facility] RBC (Bld) [#/Vol] 4.34 10*6/uL 3.90 - 5.2 0 m/uL [facility] WBC (Bld) [#/Vol] 8.81 10*3/uL [facility] Erythrocyte distribution width (RBC) [Ratio] 12.4 % Normal 11.5-15.0 [facility] Comment on above: Order Comment: Jarek leger Type: BLOOD SPECIMEN [facility] Address: [address] [place] [address] Performed By: #### 5 8410-2 #### [facility] CLIA [id number] [address] [facility] [place] [place] [address] [place] Hematocrit (Bld) [Volume fraction] 40.6 % Normal 36.0-46.0 [facility] Comment on above: Order Comment: Jarek leger Type: BLOOD SPECIMEN [facility] Address: [address] [place] [address] Performed By: #### 5 8410-2 #### [facility] [place] [id number] [address] [place] [address] [place] Hemoglobin (Bld) [Mass/Vol] 13.5 g/dL Normal 11.5-15.5 [facility] Comment on above: Order Comment: Speci men Type: BLOOD SPECIMEN [facility] Address: [address] [place] [address] Performed By: #### 5 8410-2 #### [facility] [place] [id number] [place] [address] [place] MCH (RBC) [Entitic mass] 31.1 pg Normal 26.0-34.0 [facility] Comment on above: Order Comment: Speci men Type: BLOOD SPECIMEN [facility] Address: [address] [place] [address] Performed By: #### 5 8410-2 #### [facility] IA [id number] [place] [address] [place] MCHC (RBC) [Mass/Vol] 33.3 g/dL Normal 30.5-36.0 [facility] Comment on above: Order Comment: Speci men Type: BLOOD SPECIMEN [facility] Address: [address] [place] [address] Performed By: #### 5 8410-2 #### [facility] [place] [id number] [address] [place] MCV (RBC) [Entitic vol] 93.5 fL Normal 80.0-100.0 [facility] Comment on above: Order Comment: Speci men Type: BLOOD SPECIMEN [facility] Address: [address] [place] [address] Performed By: #### 5 8410-2 #### [facility] [place] [id number] [address] [place] [id number] [place] Nucleated RBC (Bld) [#/Vol] 10*3/uL Normal <0.01 [facility] Comment on above: Order Comment: Speci men Type: BLOOD SPECIMEN [facility] Address: [address] [place] [address] Performed By: #### 5 8410-2 #### [facility] CLIA [id number] [address] [place] [address] [place] Platelet mean volume (Bld) [Entitic vol] 10.6 fL Normal 9.0-12.7 [facility] Comment on above: Order Comment: Speci men Type: BLOOD SPECIMEN [facility] Address: [address] [place] [address] Performed By: #### 5 8410-2 #### [facility] CLIA [id number] [address] [place] [address] [place] Platelets (Bld) [#/Vol] 261 10*3/uL Normal 150-400 [facility] Comment on above: Order Comment: Speci men Type: BLOOD SPECIMEN [facility] Address: [address] [place] [address] Performed By: #### 5 8410-2 #### [facility] CLIA [id number] [address] [place] [address] [place] RBC (Bld) [#/Vol] 4.34 10*6/uL Normal 3.90-5.20 [facility] Comment on above: Order Comment: Speci men Type: BLOOD SPECIMEN [facility] Address: [address] [place] [address] Performed By: #### 5 8410-2 #### [facility] CLIA [id number] [address] [place] [address] [place] WBC (Bld) [#/Vol] 8.81 10*3/uL Normal 3.70-11.00 [facility] Comment on above: Order Comment: Speci men Type: BLOOD SPECIMEN [facility] Address: [address] [place] [address] Performed By: #### 5 8410-2 #### [facility] CLIA [id number] [facility] [place] [address] [facility] CNNURSEon 02-23-2024 CNNURSE Nurse Visit (LOUISIAV) LISSA RIVAS ([id number]) 1995 F Date Time Provider Department 02/23/24 [...] schedule the patient for the following- Location: [facility] Provider: Nurse Visit type: midcycle Reason for visit/appointment notes: midcycle Date: 02/24 Time (requested): 0730 If slot is full, please schedule the closest open slot. Call to patient needed: no Ortega Morrissey APRN.CNP 02/23/2024 4:03 PM Signed Addended by: ORTEGA MORRISSEY on: 02/23/2024 04:03 PM Modules accepted: Orders Referring Provider: ORTEGA MORRISSEY [[id number]] Allergies As of Date: 02/23/2024 (No Known Allergies) Date Reviewed: 02/23/2024 Reviewed by: Paula Hester RN - Fully Assessed Reason for Visit: Infertility [285] Visit Diagnosis:Female infertility [N97.9] Order(s):FOLLICULAR US [facility] [] Order #: [id number]. #:[id number] EWPOINTQty: 1 FOLLICULAR US I [] Order #: [id number]: 1 FUTURE Prescriptions as of 02/23/2024 - [...] by VANESSA VO on 02/23/24 Normal [facility] Cobalamin (Vitamin B12) [Mas s/Vol]on 02-23-2024 Interpretation and review of laboratory results Normal [facility] Comprehensive metabolic 2000 panelon 02-23-2024 Albumin [Mass/Vol] 4.5 g/dL 3.9 - 4.9 g/dL [facility] ALP [Catalytic activity/Vol] 65 U/L 34 - 123 U/L [facility] ALT [Catalytic activity/Vol] 41 U/L High 7 - 38 U/L [facility] Anion gap [Moles/Vol] 12 mmol/L 8 - 15 mmol/L [facility] AST [Catalytic activity/Vol] 21 U/L 13 - 35 U/L [facility] Bilirubin [Mass/Vol] 0.2 mg/dL 0.2 - 1 .3 mg/dL [facility] Calcium [Mass/Vol] 9.3 mg/dL 8.5 - 10. 2 mg/dL [facility] Chloride [Moles/Vol] 105 mmol/L 98 - 10 7 mmol/L [facility] CO2 [Moles/Vol] 24 mmol/L 22 - 30 mmol/L [facility] Creatinine [Mass/Vol] 0.78 mg/dL 0.58 - 0.96 mg/dL [facility] GFR/1.73 sq M.predicted among non-blacks MDRD (S/P/Bld) [Vol rate/Area] 106 mL/min/{1.73_m2} - PINF [facility] Comment on above: Estimated Glomerular Filtration [...] [Mass/Vol] 98 mg/dL 74 - 99 mg/dL [facility] Comment on above: The [place] Diabete s Association (ADA) provides guidance for [...] Standards of Medical Care in Diabetes 2016, [place] Diabetes Association. Diabetes Care. 2016.39(Suppl 1). Interpretation and review of laboratory results Abnormal [facility] Potassium [Moles/Vol] 4.3 mmol/L 3.7 - 5.1 mmol/L [facility] Protein [Mass/Vol] 7.3 g/dL 6.3 - 8.0 g/dL [facility] Sodium [Moles/Vol] 141 mmol/L 136 - 144 mmol/L [facility] Urea nitrogen [Mass/Vol] 11 mg/dL 7 - 21 mg/d L [facility] Albumin [Mass/Vol] 4.5 g/dL Normal 3.9-4.9 [facility] Comment on above: Order Comment: Speci men Type: BLOOD SPECIMEN Ordering Facility: [facility] Address: [address] [place] [address] Performed By: #### 2 4323-8 #### [facility] CLIA [id number] [address] [place] [address] [place] ALP [Catalytic activity/Vol] 65 U/L Normal 34-123 [facility] Comment on above: Order Comment: Speci men Type: BLOOD SPECIMEN Ordering Facility: [facility] Address: [address] [place] [address] Performed By: #### 2 4323-8 #### [facility] CLIA [id number] [address] [place] [address] [place] ALT [Catalytic activity/Vol] 41 U/L High 7-38 [facility] Comment on above: Order Comment: Speci men Type: BLOOD SPECIMEN Ordering Facility: [facility] Address: [address] [place] [address] Performed By: #### 2 4323-8 #### [facility] CLIA [id number] [address] [place] [address] [place] Anion gap [Moles/Vol] 12 mmol/L Normal 8-15 [facility] Comment on above: Order Comment: Speci men Type: BLOOD SPECIMEN Ordering Facility: [facility] Address: [address] [place] [address] Performed By: #### 2 4323-8 #### [facility] CLIA [id number] [address] [place] [address] [place] AST [Catalytic activity/Vol] 21 U/L Normal 13-35 [facility] Comment on above: Order Comment: Speci men Type: BLOOD SPECIMEN Ordering Facility: [facility] Address: [address] [place] [address] Performed By: #### 2 4323-8 #### [facility] IA [id number] [address] [place] [address] [place] Bilirubin [Mass/Vol] 0.2 mg/dL Normal 0.2-1.3 [facility] Comment on above: Order Comment: Speci men Type: BLOOD SPECIMEN Ordering Facility: [facility] Address: [address] [place] [address] Performed By: #### 2 4323-8 #### [facility] CLIA [id number] [address] [place] [address] [place] Calcium [Mass/Vol] 9.3 mg/dL Normal 8.5-10.2 [facility] Comment on above: Order Comment: Speci men Type: BLOOD SPECIMEN Ordering Facility: [facility] Address: [address] [place] [address] Performed By: #### 2 4323-8 #### [facility] CLIA [id number] [address] [place] [address] [place] Chloride [Moles/Vol] 105 mmol/L Normal 98-107 [facility] Comment on above: Order Comment: Speci men Type: BLOOD SPECIMEN Ordering Facility: [facility] Address: [address] [place] [address] Performed By: #### 2 4323-8 #### [facility] CLIA [id number] [address] [place] [address] [place] CO2 [Moles/Vol] 24 mmol/L Normal 22-30 [facility] Comment on above: Order Comment: Speci men Type: BLOOD SPECIMEN Ordering Facility: [facility] Address: [address] [place] [address] Performed By: #### 2 4323-8 #### [facility] CLIA [id number] [address] [place] [address] [place] Creatinine [Mass/Vol] 0.78 mg/dL Normal 0.58-0.96 [facility] Comment on above: Order Comment: Speci men Type: BLOOD SPECIMEN Ordering Facility: [facility] Address: [address] [place] [address] Performed By: #### 2 4323-8 #### [facility] CLIA [id number] [address] [place] [address] [place] Creatinine and Glomerular filtration rate.predicted panel (S/P/Bld) 106 mL/min/1.73m??? Normal >=60 [facility] Comment on above: Order Comment: Speci men Type: BLOOD SPECIMEN Ordering Facility: [facility] Address: [address] [place] [address] Result Comment: Estefanía mated Glomerular Filtration Rate [...] GFR. Performed By: #### 2 4323-8 #### [facility] CLIA [id number] [address] [place] [address] [place] Glucose [Mass/Vol] 98 mg/dL Normal 74-99 [facility] Comment on above: Order Comment: Jarek leger Type: BLOOD SPECIMEN Ordering Facility: [facility] Address: [address] [place], [place] [id number] Result Comment: The [place] Diabetes Association (ADA) provides guidance for cutoff [...] Standards of Medical Care in Diabetes 2016, [place] Diabetes Association. Diabetes Care. 2016.39(Suppl 1). Performed By: #### 2 4323-8 #### [facility] CLIA [id number] [address] [place] [address] [place] Potassium [Moles/Vol] 4.3 mmol/L Normal 3.7-5.1 [facility] Comment on above: Order Comment: Jarek leger Type: BLOOD SPECIMEN Ordering Facility: [facility] Address: [address] [place] [address] Performed By: #### 2 4323-8 #### [facility] CLIA [id number] [address] [place] [address] [place] Protein [Mass/Vol] 7.3 g/dL Normal 6.3-8.0 [facility] Comment on above: Order Comment: Harmonyi arsen Type: BLOOD SPECIMEN Ordering Facility: [facility] Address: [address] [place] [address] Performed By: #### 2 4323-8 #### [facility] CLIA [id number] [address] [place] [address] [place] Sodium [Moles/Vol] 141 mmol/L Normal 136-144 [facility] Comment on above: Order Comment: Harmonyi men Type: BLOOD SPECIMEN Ordering Facility: [facility] Address: [address] [place] [id number] Performed By: #### 2 4323-8 #### [facility] CLIA [id number] [address] [facility] [place] [address] [place] Urea nitrogen [Mass/Vol] 11 mg/dL Normal 7-21 [facility] Comment on above: Order Comment: Speci men Type: BLOOD SPECIMEN Ordering Facility: [facility] Address: [address] [place] [address] Performed By: #### 2 4323-8 #### [facility] CLIA [id number] [address] [facility] [place] [address] [place] Follicle Diameter USon [...] Read By: Vanessa Vo M.D. MATERNAL MEDICINE [facility] Radiology Study observation (narrative) [facility] HbA1c (Bld)on 02-23-2024 Average glucose Estimated from glycated hemoglobin (Bld) [Mass/Vol] 111 mg/dL [facility] Comment on above: eAG: (Estimated aver age glucose) is a calculated value from HgbA1c and is b2b outside sales representative of the average blood glucose level in the last 2-3 month period. HbA1c (Bld) [Mass fraction] 5.5 % 4.3 - 5.6 % [facility] Comment on above: [place] Diabetes As sociation guidelines indicate that patients with HgbA1c in the range 5.7-6.4% are at increased risk for development of diabetes, and intervention by lifestyle modification may be beneficial. HgbA1c greater or equal to 6.5% is considered diagnostic of diabetes. [facility] Average glucose Estimated from glycated hemoglobin (Bld) [Mass/Vol] 111 mg/dL Normal [facility] Comment on above: Order Comment: Jarek leger Type: BLOOD SPECIMEN Ordering Facility: [facility] Address: [address] [place] [address] Result Comment: eAG: (Estimated average glucose) is a calculated value from HgbA1c and is b2b outside sales representative of the average blood glucose level in the last 2-3 month period. Performed By: #### 5 5454-3 #### [facility] CLIA [id number] [address] [place] [address] [place] HbA1c (Bld) [Mass fraction] 5.5 % Normal 4.3-5.6 [facility] Comment on above: Order Comment: Jarek leger Type: BLOOD SPECIMEN Ordering Facility: [facility] Address: [address] [place] [address] Result Comment: [place] Diabetes Association guidelines indicate that patients with HgbA1c in the range 5.7-6.4% are at increased risk for development of diabetes, and intervention by lifestyle modification may be beneficial. HgbA1c greater or equal to 6.5% is considered diagnostic of diabetes. Performed By: #### 5 5454-3 #### [facility] CLIA [id number] [address] [place], [place] [address] [place] [address] [place] VITAMIN B12on 02-23-2024 Cobalamin (Vitamin B12) [Mass/Vol] 567 pg/mL 232 - 1245 pg/mL [facility] VITAMIN D 25 HYDROXYon 02-22 25-hydroxyvitamin D3 [Mass/Vol] 49.3 ng/mL 31.0 - 80.0 ng/mL [facility] Comment on above: Classification of 25 [place] Vitamin D status: Deficiency/Insufficiency: < or = 30 ng/ml. Sufficiency/Optimal Levels: 31-80 ng/mL Toxicity: > 100 ng/mL. Test performed by chemiluminescent immunoassay. Vit B12 SerPl-ncon 024 Cobalamin (Vitamin B12) [Mass/Vol] 567 pg/mL Normal 232-1245 [facility] Comment on above: Order Comment: Speci men Type: BLOOD SPECIMEN Ordering Facility: [facility] Address: [address] [place] [address] Performed By: #### 2 132-9 #### [facility] CLIA [id number] [address] [place] [address] [place] Alexandra 02-21-2024 CNPN Telephone (REIBD) LISSA RIVAS ([id number]) 1995 F Date Time Provider Department 02/21/24 [...] Encounter Status:Closed by ORTEGA MORRISSEY on 02/21/[address] [facility] [id number] 02-17-2024 HNO ID: [id number] Author: FEDE HAIRSTON MD Service: ? Author [...] visit. Either the patient or their legal b2b outside sales representative has been informed of the risks and benefits of -- and alternatives to -- treatment through a remote evaluation and consents to proceed with the evaluation remotely. I spent a total of 30 minutes on the date of the service which included preparing to see the patient, [id number] patient care, counseling and educating the patient/family/caregiv er, ordering medications, tests, or procedures, communicating results to the patient/family/caregiv er, and care coordination (not separately reported). Kim Khan MD [facility] APTIMA MULTITEST VAGINALon 1 04-17-2023 [facility] No Panel Informationon 02-15 APTIMA BACTERIAL VAGINOSIS Not detected [facility] APTIMA SHANTA GLABRATA Not detected [facility] APTIMA CHLAMYDIA TRACHOMATIS 5 ppm [facility] APTIMA CHLAMYDIA TRACHOMATIS Not detected ppm [facility] 02-15-2024 JORDANN Telephone (REIBD) CRYSTALSOPHIELISSA ([id number]) 1995 F Date Time Provider Department 02/15/24 [...] schedule the patient for the following- Location: [facility] Provider: nurse Visit type: midcycle [...] cycle day 3-7Disp: 10 tabletRfl: 2 FOLLICULAR [facility] [[id number]] Order #: [id number]: 1 FUTURE Prescriptions as of 02/15/2024 - [...] by ORTEGA MORRISSEY on 02/15/24 Normal [facility] POCT trichomonas manually re rikkyle 02-15-2024 Bacterial vaginosis and vaginitis DNA panel Probe+sig amp (Vag fld) Negative Negative [facility] Interpretation and review of laboratory results Normal [facility] Trichomonas, UA Negative [facility] Yeast Negative [facility] [...] rocha is working with reproductive specialist at [facility] and needs MRI done within the next 13 days. If [facility] not able to accommodate her, anywhere that is able to schedule within that timeframe would be fine. Alexandra 01-14-2024 LAURA Telephone (REIBD) LISSA RIVAS ([id number]) 1995 F Date Time Provider Department 01/14/24 ORTEGA MORRISSEY During your visit today, we recorded the following information about you: Keren Carcamo 01/14/2024 9:04 AM Signed Pt started cycle 01/12 and would like to discuss plan for scheduling iui Ortega Morrissey APRN.WEED THINNER 01/14/2024 4:18 PM Signed Spoke with Lissa, [...] Encounter Status:Closed by ORTEGA MORRISSEY on 01/14/[address] [facility] CNOVon 12-31-2023 CNOV Office Visit (REIAV) LISSA RIVAS ([id number]) 1995 F Date Time Provider Department 12/31/23 10:00 AM ORTEGA MORRISSEY During your visit today, we recorded the following information about you: Last Period 12/12/23 Domenica Coon MA 12/31/2023 10:07 AM Signed Gas Plumbing Inspector offered: Patient declines. Ortega Morrissey APRN.CNP 12/31/2023 [...] Cycle Day: 20 Last menstrual period: 12/12/2023 [facility] Protocol: UNIVERSAL PROTOCOL / SAFETY CHECKLIST Procedure [...] 08/17/2023 Visit Notes: >> Domenica Coon MA Fri Dec 31, 2023 10:07 AM Status: Signed Gas Plumbing Inspector offered: Patient declines. Encounter Status:Closed by ORTEGA MORRISSEY on 12/31/[address] [facility] 12-21-2023 [facility] Nurse Visit (DAVI) LISSA RIVAS ([id number]) 1995 F Date Time Provider Department 12/21/23 [...] plan provided to patient via a Fertility defence force member other ranks. MD Darrell Branch Laura, ARIC 12/21/2023 2:32 PM Signed pt using LH surge strips and will call to scheudule IUI Robin Grewal RN December 21, 2023 2:32 PM Referring Provider: ORTEGA MORRISSEY [[id number]] Allergies As of Date: 12/21/2023 (No Known Allergies) Date Reviewed: 11/22/2023 Reviewed by: Ortega Morrissey APRN.WEED THINNER - Fully Assessed Visit Diagnosis:Female infertility [N97.9] Order(s):FOLLICULAR US [facility] [[id number]] Order #: [id number]. #:[id number] EWPOINTQty: 1 Prescriptions as of 12/21/2023 - [...] by ROBIN GREWAL on 12/21/23 Normal [facility] Follicle Diameter USon 12-20 Indication MIdcycle, Follicle [...] free fluid visualized Performed By: Cornelia Macario; RDNE Read By: Fede Hairston M.D. MATERNAL MEDICINE [facility] Radiology Study observation (narrative) [facility] 12-13-2023 LAURA Telephone (REIBD) LISSA RIVAS ([id number]) 1995 F Date Time Provider Department 12/13/23 FEDE HAIRSTON During your visit today, we recorded the following information about you: Ortega Morrissey APRN.CNP 12/13/2023 4:49 PM Signed LMP 12/11 Plan: Let 5mg, trigger, IUI#2 Flowsheet/episode created Ortega Morrissey APRN.CNP December 13, 2023 4:42 PM Please schedule the patient for the following- Location: [place] Provider: Nurse Visit type: Midcycle Reason for [...] Primary Visit Diagnosis:Female infertility [N97.9] Order(s):FOLLICULAR US [facility] [[id number]] Order #: [id number]: 1 FUTURE Choriogonadotropin Pam,HumRec (OVIDREL) 250 mcg/0.5 mL syrgInject 250 mcg subcutaneously one time only for 1 dose.Disp: 0.5 mLRfl: 1 Prescriptions as of 12/13/2023 - Choriogonadotropin Apm,HumRec (OVIDREL) 250 mcg/0.5 mL syrg Inject 250 [...] Encounter Status:Closed by ORTEGA MORRISSEY on 12/13/23 Normal [facility] CNOVon 11-28-2023 CNOV Office Visit (REIBD) LISSA RIVAS ([id number]) 1995 F Date Time Provider Department 11/28/23 [...] Cycle Day: 13 Last menstrual period: 11/12/2023 [facility] Protocol: UNIVERSAL PROTOCOL / SAFETY CHECKLIST Procedure [...] # 44.8 million Referring Provider: DESHAWN RIOJAS [[id number]] Allergies As of Date: 11/28/2023 (No Known Allergies) Date Reviewed: 11/22/2023 Reviewed by: Ortega Morrissey APRN.WEED THINNER - Fully Assessed Primary Visit Diagnosis:Female infertility [...] Encounter Status:Closed by DESHAWN RIOJAS on 11/28/[address] [facility] CNNURSEon 11-22-2023 CNNURSE Nurse Visit (REIAV) LISSA RIVAS ([id number]) 1995 F Date Time Provider Department 11/22/23 7:15 AM NURSE [facility] REJ DAVI During your visit today, we recorded the [...] called patient. She will drive back to [place] now to get done. Erma Donis RN November 22, 2023 8:45 AM 11/22/2023 11 trigger 25+<10mm 21.2, 25+<10mm 5.6mm tri p4=0.3 lh=5.1 JR 11/23/2023 12 11/24/2023 13 IUI RN called patient, name and verified. Plan given for midcycle per physician, see flowsheet for details. [employer] message sent. Medications reviewed and verified, instructions given. Patient denies any questions or concerns. Erma Donis RN November 22, 2023 12:53 PM Referring Provider: ORTEGA MORRISSEY [[id number]] Allergies As of Date: 11/22/2023 (No Known Allergies) Date Reviewed: 11/22/2023 Reviewed by: Ortega Morrissey APRN.WEED THINNER - Fully Assessed Visit Diagnosis:Female infertility [N97.9] Order(s):FOLLICULAR US [facility] [[id number]] Order #: [id number]. #:[id number] EWPOINTQty: 1 PROGESTERONE [SQPROG] Order #: [id number] FUTURE LUTEINIZING HORMONE [SQLH] Order #: [id number] FUTURE Prescriptions as of 11/22/2023 - progesterone [...] by JAILENE HOWARD on 11/22/23 Normal [facility] Follicle Diameter USon 11-21 Indication [...] free fluid visualized Performed By: Cornelia Macario; [facility] Read By: Jailene Howard M.D. MATERNAL MEDICINE [facility] Radiology Study observation (narrative) [facility] LH SerPl-aCncon 11-22-2023 Lutropin Qn 5.1 m[IU]/mL Normal See comment [facility] Comment on above: Order Comment: Speci men Type: BLOOD SPECIMEN Ordering Facility: [facility] Address: [address] [place] [address] Result Comment: Refe rence range: Follicular: 2.4-12.6 mIU/mL Midcycle: 14.0-95.6 mIU/mL Luteal: 1.0-11.4 mIU/mL Post Kelsey: 7.7-58.5 mIU/mL Performed By: #### 2 839-9, 52997-1 #### [facility] CLIA [id number] [address] [facility] [address] [place] [address] [place] LUTEINIZING HORMONEon 2023 Lutropin Qn 5.1 m[IU]/mL See comment mIU/mL [facility] Comment on above: Reference range: Follicular: 2.4-12.6 mIU/mL Midcycle: 14.0-95.6 mIU/mL Luteal: 1.0-11.4 mIU/mL Post Kelsey: 7.7-58.5 mIU/mL No Panel Informationon 11-21 [facility] PROGESTERONEon 11-22-2023 Progesterone [Mass/Vol] 0.3 ng/mL See comment [facility] Comment on above: Menstrual Cycle Prog esterone Reference Ranges: Follicular: <1.0 ng/mL Ovulation: <12.1 ng/mL Luteal: 1.8 to 23.9 ng/mL. Progesterone Reference Ranges vary by gestational period: First Trimester: 11.0 to 44.3 ng/mL Second Trimester: 25.4 to 83.3 ng/mL Third Trimester: 58.7 to 214 ng/mL Post menopausal Progesterone: <0.5 ng/mL Reference: 1. Progesterone (Progesterone III) [package insert V 1.0 [place]ic]. [employer], [place], [place]. December 2014. Progest SerPl-mCncon 024 Progesterone [Mass/Vol] 0.3 ng/mL Normal See comment [facility] Comment on above: Order Comment: Speci men Type: BLOOD SPECIMEN Ordering Facility: [facility] Address: [address] [place] [address] Result Comment: Mens trual Cycle Progesterone Reference Ranges: Follicular: <1.0 ng/mL Ovulation: <12.1 ng/mL Luteal: 1.8 to 23.9 ng/mL. Progesterone Reference Ranges vary by gestational period: First Trimester: 11.0 to 44.3 ng/mL Second Trimester: 25.4 to 83.3 ng/mL Third Trimester: 58.7 to 214 ng/mL Post menopausal Progesterone: <0.5 ng/mL Reference: 1. Progesterone (Progesterone III) [package insert V 1.0 [place]ic]. [employer], [place], [place]. December 2014. Performed By: #### 2 839-9, 82614-2 #### [facility] CLIA [id number] [address] [facility] [place] [place] [address] [facility] CNPNon 11-12-2023 CNPN Telephone (REIBD) JUAN MIGUEL RIVASA ([id number]) 1995 F Date Time Provider Department 11/12/23 SELF REIBD During your visit today, we recorded the following information about you: Carlos AlbertoKeren 11/12/2023 1:56 PM Signed Pt had iui 10/25 , pt had negative preg 11/08 or 11/09 , pt started cycle 11/11 Madeleine Orta PA-C 11/12/2023 6:08 PM Signed Patient is planning IUI. FYI: D[employer]TER Mg. Please see the checklist Madeleine Orta PA-C November 12, 2023 6:07 PM Ortega Morrissey APRN.WEED THINNER 11/15/2023 9:46 AM Signed Plan: Let 5mg/trigger/IUI #2 Ortega Morrissey APRN.[facility] November 15, 2023 9:39 AM Please schedule the patient for the following- Location: [place] Provider: Nurse Visit type: Follicular scan Reason [...] Visit Diagnosis:Female infertility [N97.9] Order(s):FOLLICULAR US [facility] [[id number]] Order #: [id number]: 1 FUTURE Prescriptions as of 11/15/2023 - [...] Encounter Status:Closed by ORTEGA MORRISSEY on 11/15/[address] [facility] Mando 10-26-2023 CNOV Office Visit (ASHLYNV) LISSA RIVAS ([id number]) 1995 F Date Time Provider Department 10/26/23 [...] Cycle Day: 15 Last menstrual period: 10/12/2023 [facility] Protocol: UNIVERSAL PROTOCOL / SAFETY CHECKLIST Procedure [...] TIME: 11:36 AM Referring Provider: ORTEGA MORRISSEY [[id number]] Allergies As of Date: 10/26/2023 (No Known [...] Encounter Status:Closed by ORTEGA MORRISSEY on 10/26/23 Normal [facility] CNNURSEon 10-22-2023 CNNURSE Nurse Visit (REIAV) LISSA RIVAS ([id number]) 1995 F Date Time Provider Department 10/22/23 7:00 AM NURSE [facility] REIAV During your visit today, we recorded the following information about you: Erma Donis RN 10/22/2023 1:41 PM Signed Lissa Rivas is here today for a midcycle scan. Lead follicle: 14 Erma Donis RN October 22, 2023 7:25 AM RN called patient, name and verified. Plan given for midcycle per physician, see flowsheet for details. [employer] message sent. Medications reviewed and verified, instructions [...] Trevizo MD, FLACO Referring Provider: ORTEGA MORRISSEY [[id number]] Allergies As of Date: 10/22/2023 (No Known Allergies) Date Reviewed: 08/18/2023 Reviewed by: Domenica Coon MA - Fully Assessed Visit Diagnosis:Female infertility [N97.9] Order(s):FOLLICULAR US [facility] [[id number]] Order #: [id number]. #:[id number] EWPOINTQty: 1 Prescriptions as of 10/22/2023 - [...] by ERMA DONIS on 10/22/23 Normal [facility] Follicle Diameter USon 10-21 Indication [...] Read By: Ayanna Trevizo MD MATERNAL MEDICINE [facility] Radiology Study observation (narrative) [facility]20[facility] (REIBD[facility] LISSA RIVAS ([id number]) 1995 F Date Time Provider Department 10/20/23 SELF REIBD During your visit today, we recorded the following information about you: Keren Carcamo 10/20/2023 2:26 PM Signed Pts pharmacy called and would like to know when she needs to order trigger shot Ani Stovall APRN.[employer] 10/20/2023 3:11 PM Signed patient instructed to order trigger now so that she has it by Wednesday Ani Stovall APRN.[employer] October 20, 2023 3:10 PM Allergies As [...] Encounter Status:Closed by ANI STOVALL on 10/20/[address] [facility] Alexandra 10-12-2023 LAUR[facility] Telephone (REIBD) LISSA RIVAS ([id number]) 1995 F Date Time Provider Department 10/12/23 [...] schedule the patient for the following- Location: [place] Provider: nurse Visit type: mid cycle Reason [...] - Fully Assessed Reason for Visit: Ortega [facility] today/re day 11-13 for iui [Other] Primary [...] by ORTEGA MORRISSEY on 10/12/23 Normal [facility] No Panel Informationon 08-16 Interpretation and review of laboratory results Normal [facility] T4 FREE/FREE THYROXINEon Free T4 [Mass/Vol] 1.1 ng/dL 0.9 - 1.7 ng/dL [facility] THYROID PEROXIDASE ANTIBODYo n 08-17-2023 Interpretation and review of laboratory results Normal [facility] TPO Ab Qn 3.3 [IU]/mL [facility] Comment on above: Thyroid Peroxidase A ntibody test is used as an aid in diagnosis of autoimmune thyroid disease. Clinical correlation is required. [facility] THYROID STIMULATING HORMONEo n 08-17-2023 TSH Qn 2.690 m[IU]/L [facility] Comment on above: If the patient [...] Gerber, et al. 2017 Guidelines of the [place] [employer] for the Diagnosis and Management of Thyroid Disease during and the . Thyroid, 2017:27:3:315-389. HCG QUAL UR B/Oon 07-29-2023 Interpretation and review of laboratory results Normal [facility] status Negative neg - pos Theresa torres [facility] Quality Check Yes yes/no [facility] XR HYSTEROSALPINGOGRAMon XR HYSTEROSALPINGOGRAM * [...] or left fallopian tube. IMPRESSION: Normal hysterosalpingogram. Tank Car Loader: DAVIS Transcribe Date/Time: Aug 02 2023 4:22P Dictated by : ADRIANNA BAUMANN MD This examination was interpreted and the report reviewed and electronically signed by: ADRIANNA BAUMANN MD on Aug 02 2023 4:23PM EST [id number] [facility] 06-10-[address] [facility] Telephone (AMANDEEPITT) LISSA RIVAS ([id number]) 1995 F Date Time Provider Department 06/10/23 ELSA PUENTES ROCÍO During your visit today, we recorded the following information about you: Elsa Puentes LGC 06/14/2023 1:38 PM Addendum Patient name and was confirmed at initiation of discussion. Lissa Rivas's Integrated BRACAnalysis with Humberto through [employer] was positive for a pathogenic variant in [...] population without disease (benign polymorphism). Please see [employer] message for further discussion. CHRISTIE Magdaleno Licensed, [...] not included)... Normal [facility] 04-23-[address] [facility] Telephone (NYDIA) LISSA RIVAS ([id number]) 1995 F Date Time Provider Department 04/23/23 [...] NTHL1, PALB2, PDGFRA, PMS2, POLD1, POLE, POT1, KKMAK5V, PTCH1, PTEN, RAD51C, RAD51D, RB1, RET, SDHA, SDHAF2, SDHB, SDHC, SDHD, SMAD4, SMARCA4, SMARCB1, SMARCE1, STK11, SUFU, THYC875, TP53, TSC1, TSC2, and VHL The Multi-Cancer [...] READY TO MOVE FORWARD. Elsa Puentes MS, [facility] Licensed, Certified Genetic Counselor Elsa [...] detect the familial mutation. 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 The patient was offered SDHA single site mutation analysis through [employer] or self pay Integrated [facility]ACAnalysis with [employer] and SDHA single site mutation analysis through [employer]. After considering the risks, benefits, and limitations, the patient chose to pursue and provided informed consent for the following testing: SELF PAY Integrated [facility]ACAnalysis with [employer] and SDHA single site mutation analysis through [employer]. The [employer] panel includes APC, MICHAEL, AXIN2, BAP1, BARD1, BMPR1A, BRCA1, BRCA2, BRIP1, CDH1, CDK4, CDKN2A, CHEK2, CTNNA1, EGFR, EPCAM, FH, FLCN, GREM1, HOXB13, MEN1, MET, MITF, MLH1, MSH2, MSH3, MSH6, MUTYH, NTHL1, PALB2, PMS2, POLD1, POLE, PTEN, RAD51C, RAD51D, RET, SDHA, SDHB, SDHC, SDHD, SMAD4, STK11, TERT, TP53, TSC1, TSC2, and VHL [employer] looks at genes related to inherited breast, ovarian, pancreatic, prostate, colon, uterine, kidney, lung, endocrine, and stomach cancer, as well as inherited colon polyp and melanoma syndromes. We discussed that an NGS panel can rarely result in an unexpected finding which may or may not be related to the presenting phenotype. We discussed that [employer] may contact the patient by text or phone call regarding billing. The patient should watch for this communication and respond promptly. The patient should contact [employer] directly with any billing questions (ph. [phone]). Elsa Puentes MS, [facility] Licensed, Certified Genetic Counselor Allergies As of Date: 04/23/2023 (No Known Allergies) Date Reviewed: 01/04/2023 Reviewed by: Domenica Coon Ma - Fully Assessed Reason for Visit: Follow Up [171] Primary Visit Diagnosis:Family history of cancer [Z80.9] Other Visit Diagnosis:Family history of gene mutation [Z84.81] Order(s):[facility] SEND OUT TST 1 [SQMISC1] Order #: [id number] FUTURE Prescriptions as of 05/17/2023 - letrozole [...] No (more content not included)... Normal [facility] PELVIC US WHIon 02-08-2023 [facility] Vital Signs Date Time Vital Sign Value Performing Clinician Facility 09-25-2024 13:26-0400 Body mass index (BMI) [Ratio] 39.95 kg/m2 Saravanan Zita DO Work Phone: [facility] 09-25-2024 13:26-0400 Body weight 102.29 kg Saravanan Zita DO Work Phone: [facility] 09-25-2024 13:26-0400 Diastolic blood pressure 80 mm[Hg] Saravanan Zita DO Work Phone: [facility] 09-25-2024 13:26-0400 Systolic blood pressure 130 mm[Hg] Saravanan Zita DO Work Phone: [facility] 09-13-2024 11:47-0400 Body mass index (BMI) [Ratio] 39.59 kg/m2 Saravanan Zita DO Work Phone: [facility] 09-13-2024 11:47-0400 Body weight 101.38 kg Saravanan Zita DO Work Phone: [facility] 09-13-2024 11:47-0400 Diastolic blood pressure 82 mm[Hg] Saravanan Zita DO Work Phone: [facility] 09-13-2024 11:47-0400 Systolic blood pressure 126 mm[Hg] Saravanan Zita DO Work Phone: [facility] 09-12-2024 10:39-0400 Diastolic blood pressure 87 mm[Hg] Ruthann Lavoy PA-C Work Phone: [facility] 09-12-2024 10:39-0400 Systolic blood pressure 130 mm[Hg] Ruthann Lavoy PA-C Work Phone: [facility] 09-12-2024 10:08-0400 Body height 160 cm Ruthann Lavoy PA-C Work Phone: [facility] 09-12-2024 10:08-0400 Body mass index (BMI) [Ratio] 39.57 kg/m2 Ruthann Miller PA-C Work Phone: [facility] 09-12-2024 10:08-0400 Body weight 101.33 kg Ruthann Aguirreoy PA-C Work Phone: [facility] 08-31-2024 15:22-0400 Body height 160 cm Cristiana Zuñiga RN Work Phone: [facility] 08-31-2024 15:22-0400 Body mass index (BMI) [Ratio] 39.5 kg/m2 Cristiana Zuñiga RN Work Phone: [facility] 08-31-2024 15:22-0400 Body weight 101.15 kg Cristiana Zuñiga RN Work Phone: [facility] 08-30-2024 11:46-0400 Body mass index (BMI) [Ratio] 39.4 kg/m2 Saravanan Zita DO Work Phone: [facility] 08-30-2024 11:46-0400 Body weight 100.88 kg Saravanan Zita DO Work Phone: [facility] 08-30-2024 11:46-0400 Diastolic blood pressure 76 mm[Hg] Saravanan Zita DO Work Phone: [facility] 08-30-2024 11:46-0400 Systolic blood pressure 116 mm[Hg] Saravanan Zita DO Work Phone: [facility] 08-16-2024 08:38-0400 Body mass index (BMI) [Ratio] 40.08 kg/m2 Rupal THAYER Work Phone: [facility] 08-16-2024 08:38-0400 Body weight 102.63 kg Rupal THAYER Work Phone: [facility] 08-16-2024 08:38-0400 Diastolic blood pressure 80 mm[Hg] Rupal THAYER Work Phone: [facility] 08-16-2024 08:38-0400 Systolic blood pressure 114 mm[Hg] Rupal THAYER Work Phone: [facility] 07-18-2024 09:20-0400 Body height 160 cm Lito Velazquez MD Work Phone: [facility] 07-18-2024 09:20-0400 Body mass index (BMI) [Ratio] 40.03 kg/m2 Lito Velazquez MD Work Phone: [facility] 07-18-2024 09:20-0400 Body weight 102.51 kg Lito Velazquez MD Work Phone: [facility] 07-18-2024 09:20-0400 Diastolic blood pressure 78 mm[Hg] Lito Velazquez MD Work Phone: [facility] 07-18-2024 09:20-0400 Heart rate 90 /min Lito Velazquez MD Work Phone: [facility] 07-18-2024 09:20-0400 SaO2% (BldA) [Mass fraction] 98 % Lito Velazquez MD Work Phone: [facility] 07-18-2024 09:20-0400 Systolic blood pressure 128 mm[Hg] Lito Velazquez MD Work Phone: [facility] 05-23-2024 16:00-0500 Body height 160 cm Andrew Ferrer DPM Work Phone: [facility] 05-23-2024 16:00-0500 Body mass index (BMI) [Ratio] 38.83 kg/m2 Andrew Ferrer DPM Work Phone: [facility] 05-23-2024 16:00-0500 Body weight 99.43 kg Andrew Ferrer DPM Work Phone: [facility] 03-08-2024 10:25-0500 Body height 160 cm Gabriel Roof DO Work Phone: [facility] 03-08-2024 10:25-0500 Body mass index (BMI) [Ratio] 40.03 kg/m2 Gabriel Roof DO Work Phone: [facility] 03-08-2024 10:25-0500 Body temperature 97.39 [degF] Gabriel Roof DO Work Phone: [facility] 03-08-2024 10:25-0500 Body weight 102.51 kg Gabriel Roof DO Work Phone: [facility] 03-08-2024 10:25-0500 Diastolic blood pressure 90 mm[Hg] Gabriel Roof DO Work Phone: [facility] 03-08-2024 10:25-0500 Systolic blood pressure 128 mm[Hg] Gabriel Roof DO Work Phone: [facility] 02-15-2024 15:12-0500 Body height 160 cm Robles Goldsmith DO Work Phone: [facility] 02-15-2024 15:12-0500 Body mass index (BMI) [Ratio] 38.26 kg/m2 Robles Goldsmith DO Work Phone: [facility] 02-15-2024 15:12-0500 Body weight 97.98 kg Robles Golsdmith DO Work Phone: [facility] 02-15-2024 15:12-0500 Diastolic blood pressure 84 mm[Hg] Robles Goldsmith DO Work Phone: [facility] 02-15-2024 15:12-0500 Systolic blood pressure 136 mm[Hg] Robles Goldsmith DO Work Phone: [facility] 08-17-2023 10:02-0400 Body mass index (BMI) [Ratio] 40.65 kg/m2 Mirta Gallagher MD Work Phone: [facility] 08-17-2023 10:02-0400 Body weight 104.1 kg Mirta Gallagher MD Work Phone: [facility] 08-17-2023 10:02-0400 Diastolic blood pressure 79 mm[Hg] Mirta Gallagher MD Work Phone: [facility] 08-17-2023 10:02-0400 Heart rate 73 /min Mirta Gallagher MD Work Phone: [facility] 08-17-2023 10:02-0400 Systolic blood pressure 129 mm[Hg] Mirta Gallagher MD Work Phone: [facility] 06-26-2022 19:10-0400 Body height 157.48 cm Josefina Kay Other [facility] Other 06-26-2022 19:10-0400 Body mass index (BMI) [Ratio] 40.64 kg/m2 Josefina Kay Other [facility] Other 06-26-2022 19:10-0400 Body weight 100.79 kg Josefina Catesmond Other [facility] Other 06-26-2022 19:10-0400 Diastolic blood pressure 87 mm[Hg] Josefina Eliza Other [facility] Other 06-26-2022 19:10-0400 Respiratory rate 18 /min Josefina Catesmond Other [facility] Other 06-26-2022 19:10-0400 SaO2% (BldA) [Mass fraction] 98 % Josefina Kay Other [facility] Other 06-26-2022 19:10-0400 Systolic blood pressure 132 mm[Hg] Josefina Eliza Other [facility] Other Encounters Encounter Date Encounter Type Care Provider Facility Start: 09-27-2024 End: 09-27-2024 Clinisync Result Encounter Generic External Data Provider [facility] External Department Unsolicited Start: 09-27-2024 End: 09-27-2024 Clinisync Result Encounter Generic External Data Provider [facility] External Department Unsolicited Start: 09-25-2024 End: 09-25-2024 Kavinboo flowsheet Saravanan Zita DO Work Phone: [facility] Start: 09-25-2024 End: 09-25-2024 Bamboo flowsheet Saravanan Zita DO Work Phone: [facility] Start: 09-25-2024 End: 09-25-2024 flow sheet Saravanan Zita DO Work Phone: [facility] Comment on above: Third trimester preg talya ([facility]); Insulin controlled gestational diabetes mellitus (GDM) during , antepartum ([facility]); 32 weeks gestation of ([facility]) Start: 09-25-2024 End: 09-25-2024 ambulatory SARAVANAN ZITA Not Available Start: 09-20-2024 End: 09-20-2024 Office outpatient visit 25 minutes Alton Rebolledo APRN-[employer] Work Phone: [facility] Comment on above: Insulin controlled g estational diabetes mellitus (GDM) in third trimester (Primary Dx); Gestational diabetes requiring insulin Start: 09-20-2024 End: 09-20-2024 ambulatory [facility] Start: 09-18-2024 End: 09-18-2024 Orders Only Corby Rose PHOTO STYLIST [facility] Comment on above: Gestational diabetes requiring insulin; Elevated blood pressure affecting , antepartum; Insulin controlled gestational diabetes mellitus (GDM) in third trimester; Abnormal liver enzymes Start: 09-14-2024 End: 09-14-2024 Clinisync Result Encounter Generic External Data Provider [facility] External Department Unsolicited Start: 09-14-2024 End: 09-14-2024 Clinisync Result Encounter Generic External Data Provider [facility] External Department Unsolicited Start: 09-13-2024 End: 09-13-2024 Bamboo flowsheet Saravanan Zita DO Work Phone: [facility] Start: 09-13-2024 End: 09-13-2024 Bamboo flowsheet Saravanan Zita DO Work Phone: [facility] Start: 09-13-2024 End: 09-13-2024 ambulatory SARAVANAN AHUMADA Not Available Start: 09-13-2024 End: 09-13-2024 flow sheet Saravanan Luo DO Work Phone: [facility] Comment on above: History of gestation al diabetes (Primary Dx); Third trimester ([facility]); 31 weeks gestation of ([facility]) Start: 09-12-2024 End: 09-12-2024 Clinisync Result Encounter Saravananmel Luo DO Work Phone: [facility] External Department Unsolicited Start: 09-12-2024 End: 09-12-2024 Clinisync Result Encounter Saravanan Menazio DO Work Phone: [facility] External Department Unsolicited Start: 09-12-2024 End: 09-12-2024 Documentation procedure Ruthann Miller PA-C Work Phone: [facility] Start: 09-12-2024 End: 09-12-2024 Office outpatient new 45 minutes Ruthann Miller PA-C Work Phone: [facility] Comment on above: Insulin controlled g estational diabetes mellitus (GDM) in third trimester; Abnormal liver enzymes; Abnormal genetic test; Gestational diabetes requiring insulin; Elevated blood pressure affecting , antepartum Start: 09-12-2024 End: 09-12-[facility] Start: 09-11-2024 End: 09-11-2024 Telemedicine consultation with patient Mirta Gallagher MD Work Phone: Endocrinology Start: 09-11-2024 End: 09-11-2024 ambulatory Mirta Gallagher MD Work Phone: Endocrinology Comment on above: Monoallelic mutation of SDHA gene (Primary Dx); Gestational diabetes mellitus (GDM) in third trimester, gestational diabetes method of control unspecified (HCC) Start: 09-06-2024 End: 09-06-2024 Orders Only Yesi VAZ Work Phone: [facility] Start: 09-05-2024 End: 09-05-2024 Orders Only Jackson Cruz MD Work Phone: [facility] Comment on above: Monoallelic mutation of SDHA gene (Primary Dx) Start: 09-04-2024 End: 09-04-2024 ambulatory MIRTA GALLAGHER Facility:[facility] Start: 08-31-2024 End: 08-31-2024 ambulatory Cristiana Zuñiga RN Work Phone: [facility] Comment on above: Gestational diabetes mellitus (GDM) in third trimester, gestational diabetes method of control unspecified (Primary Dx) Start: 08-30-2024 End: 08-30-2024 Bamboo flowsheet Saravanan Zita DO Work Phone: [facility] Start: 08-30-2024 End: 08-30-2024 Bamboo flowsheet Saravanan Zita DO Work Phone: [facility] Start: 08-30-2024 End: 08-30-2024 Chart abstracting Scanning Provider External [facility] Start: 08-30-2024 End: 08-30-2024 ambulatory SARAVANAN ZTIA Not Available Start: 08-30-2024 End: 08-30-2024 flow sheet Saravanan Zita DO Work Phone: [facility] Comment on above: 28 weeks gestation o f ; Third trimester ; Gestational diabetes mellitus (GDM), antepartum, gestational diabetes method of control unspecified; Herpes simplex virus type 1 (HSV-1) dermatitis Start: 08-24-2024 End: 08-24-2024 Patient encounter procedure Lito Velazquez MD Work Phone: [facility] Work Phone: Start: 08-24-2024 End: 08-24-2024 ambulatory Lito Velazquez MD Work Phone: [facility] Work Phone: Start: 08-23-2024 End: 08-23-2024 Clinisync Result Encounter Generic External Data Provider [facility] External Department Unsolicited Start: 08-23-2024 End: 08-23-2024 Clinisync Result Encounter Generic External Data Provider [facility] External Department Unsolicited Start: 08-16-2024 End: 08-16-2024 Bamboo flowsheet Rupal THAYER Work Phone: [facility] Start: 08-16-2024 End: 08-16-2024 Bamboo flowsheet Rupal Patel PA Work Phone: [facility] Start: 08-16-2024 [...] encounter procedure Lito Velazquez MD Work Phone: [facility] Work Phone: Start: 07-18-2024 End: 07-18-2024 Periodic preventive med est patient 18-39 yrs Lito Velazquez MD Work Phone: [facility] Comment on above: Annual physical exam [...] of patient and report Us Tech 1 Fh Rej Work Phone: [facility] Comment on above: Supervision of pregn thor with history of infertility, first trimester Start: 2024 End: 04-04-2024 ambulatory Ortega Morrissey APRN.CNP Work Phone: [facility] Start: 03-27-2024 End: 03-27-2024 flow sheet [facility] Nurse [facility] Comment on above: GA: 6w1d Start: 03-27-2024 End: 03-27-2024 ambulatory SARAVANAN AHUMADA Not Available Start: 03-17-2024 End: 03-17-2024 ambulatory ORTEGA MORRISSEY Facility:[facility] Start: 03-17-2024 End: 03-17-2024 Patient encounter procedure Ortega Morrissey DEBBIE.[employer] Work Phone: [facility] Comment on above: Supervision of pregn thor with history of infertility, first trimester (Primary Dx) Start: 03-17-2024 End: 03-17-2024 Telemedicine consultation with patient Ortega Morrissey DYE BLENDER.[employer] Work Phone: [facility] Start: 03-16-2024 End: 03-16-2024 Orders Only Madeleine Orta PA-C Work Phone: [facility] Comment on above: Encounter for pregna ncy test, result positive (Primary Dx) Start: 03-15-2024 End: 03-15-2024 ambulatory ORTEGA AMY Facility:[facility] Start: 03-13-2024 End: 03-13-2024 ambulatory [facility] Facility:[facility] Start: 03-13-2024 End: 03-13-2024 Telephone encounter Fede Hairston MD Work Phone: [facility] Comment on above: +hpt today/lmp 11/17 skipped treatment this month Start: 03-10-2024 End: 03-10-2024 ambulatory MIRTA GALLAGHER Facility:[facility] Start: 03-08-2024 End: 03-08-2024 Office outpatient new 45 minutes Gabriel Blackwell DO Work Phone: [facility] Comment on above: Otalgia of both ears (Primary Dx); Temporomandibular joint disorder; Chronic allergic rhinitis; Postnasal drip Start: 03-08-2024 End: 03-08-2024 ambulatory [facility] Start: 02-28-2024 End: 02-28-2024 Telephone encounter Fede Hairston MD Work Phone: [facility] Comment on above: ortega cueva is not el ared for us should she still have it do Start: 02-23-2024 End: 02-25-2024 E-mail encounter from caregiver Ortega Morrissey DEBBIE[employer] Work Phone: [facility] Start: 02-23-2024 End: 02-25-2024 Patient encounter procedure Ortegajamie Morrissey APRN.[employer] Work Phone: [facility] Comment on above: Next steps Start: 02-23-2024 End: 02-23-2024 ambulatory FEDE HAIRSTON Facility:[facility] Start: 02-23-2024 End: 02-23-2024 Nursing evaluation of patient and report Nurse Gayathri [facility] Rej [facility] Comment on above: Female infertility Start: 02-21-2024 End: 02-21-2024 Telephone encounter Fede Hairston MD Work Phone: [facility] Comment on above: [facility] at [facility] Start: 02-17-2024 End: 02-17-2024 ambulatory FEDE HAIRSTON Facility:[facility] Start: 02-17-2024 End: 02-17-2024 Office outpatient visit [...] 01-14-2024 End: 01-14-2024 Telephone encounter Ortega Morrissey APRN.[employer] Work Phone: [facility] Comment on above: iui plan , cd1 01/12 Start: 01-14-2024 End: 01-17-2024 ambulatory MIRTA AILEEN Facility:[facility] Start: 12-31-2023 End: 12-31-2023 ambulatory ORTEGA MORRISSEY Facility:[facility] Start: 12-31-2023 End: 12-31-2023 Patient encounter procedure Ortega Morrissey APRN.[employer] Work Phone: [facility] Comment on above: Encounter for artifi cial insemination (Primary Dx) Start: 12-21-2023 End: 12-21-2023 ambulatory ORTEGA MORRISSEY Facility:[facility] Start: 12-21-2023 End: 12-21-2023 Nursing evaluation of patient and report Fede Hairston MD Work Phone: [facility] Comment on above: Female infertility Start: 12-13-2023 End: 12-13-2023 Telephone encounter Fede Hairston MD Work Phone: [facility] Infertility Comment on above: LMP 12/12/23/ set up monitored cycle; Patient Update Start: 11-28-2023 End: 11-28-2023 ambulatory DESHAWN RIOJAS Facility:[facility] Start: 11-28-2023 End: 11-28-2023 Patient encounter procedure Deshawn Riojas MD Work Phone: Reproductive Endocrinology Infertility Comment on above: Female infertility ( Primary Dx) Start: 11-23-2023 End: 11-23-2023 ambulatory Ortega Morrissey APRN.CNP Work Phone: Reproductive Endocrinology Infertility Start: 11-23-2023 End: 11-23-2023 Patient encounter procedure Ortega Morrissey APRN.WEED THINNER Work Phone: Reproductive Endocrinology Infertility Comment on above: IUI Round 2 Start: 11-22-2023 End: 11-22-2023 ambulatory ORTEGA MORRISSEY Facility:[facility] Start: 11-22-2023 End: 11-22-2023 Patient encounter procedure Ortega Morrissey APRN.CNP Work Phone: Reproductive Endocrinology Infertility Comment on above: Procreation manageme nt investigation and testing (Primary Dx) Start: 11-22-2023 End: 11-22-2023 Telemedicine consultation with patient Ortega Morrissey WEED THINNER Work Phone: Reproductive Endocrinology Infertility Start: 11-22-2023 End: 11-22-2023 ambulatory JAILENE [facility] Facility:[facility] Start: 11-22-2023 End: 11-22-2023 ambulatory [facility] Facility:[facility] Start: 11-22-2023 End: 11-22-2023 Nursing evaluation of patient and report Nurse Gayathri [facility] Rej Repro[facility] Endocrinology Infertility Comment on above: Female infertility Start: 11-18-2023 End: 11-18-2023 ambulatory Ortega Morrissey APRN.WEED THINNER Work Phone: Reproductive Endocrinology Infertility Start: 11-18-2023 End: 11-18-2023 Patient encounter procedure Ortegajamie Morrissey APRN.CNP Work Phone: Reproductive Endocrinology Infertility Comment on above: IUI Medication quest ion Start: 11-12-2023 End: 11-15-2023 Telephone encounter Self [facility] Infertility Comment on above: iui 10/25 , cd 1 11/11 Start: 10-26-2023 End: 10-26-2023 ambulatory Ortega Morrissey APRN.CNP Work Phone: Reproductive Endocrinology Infertility Start: 10-26-2023 End: 10-26-2023 Patient encounter procedure Ortegajamie Morrissey APRN.WEED THINNER Work Phone: Reproductive Endocrinology Infertility Comment on above: Encounter for artifi cial insemination (Primary Dx) Progesterone Questio n Start: 10-22-2023 End: 10-22-2023 Nursing evaluation of patient and report Nurse Gayathri [facility] Rej Reproductive Endocrinology Infertility Comment on above: Female infertility Start: 10-22-2023 End: 10-22-2023 ambulatory ORTEGA MORRISSEY Facility:[facility] Start: 10-20-2023 Telephone encounter Self [facility] ro[facility] Endocrinology Infertility Comment on above: trigger shot Start: 10-12-2023 Telephone encounter Fede Hairston MD Work Phone: Reproductive Endocrinology Infertility Comment on above: Ortega bowens today/re us day 11-13 for iui Start: 09-10-2023 End: 09-10-2023 Patient encounter procedure Ortega Oh SHRESTHA Work Phone: Reproductive Endocrinology Infertility Comment on above: Screen for sexually transmitted diseases (Primary Dx); Secondary amenorrhea; Female infertility Start: 09-10-2023 End: 09-10-2023 Telemedicine consultation with patient Ortega Waterskali SHRESTHA Work Phone: Reproductive Endocrinology Infertility Start: [...] Infertility Comment on above: Instructions for janette mercedesling Start: 07-29-2023 ambulatory FEDE HAIRSTON Facility:[facility] Start: 07-29-2023 End: 07-29-2023 Subsequent hospital visit by physician g [facility] Gastrointestinal Comment on above: Fertility testing [Z 31.41] Start: 07-29-2023 End: 07-29-2023 Nursing evaluation of patient and report Nurse Trinh [facility] Greta Reproductive Endocrinology Infertility Comment on above: Encounter for fertil ity testing (Primary Dx); Pre-procedure lab exam Start: 07-29-2023 End: 07-29-2023 Patient encounter status Nurse Gayathri 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) Start: 06-10-2023 Telephone encounter Elsa altman [facility] Work Phone: Genetic Healthcare Comment on above: Results (Genetic) Start: 05-25-2023 Telephone encounter Fede Hairston MD Work Phone: Reproductive Endocrinology Infertility Comment on above: refill letrozol/cycl e to start in next week Start: 04-23-2023 Telephone encounter Elsa altman [facility] Work Phone: Genetic Healthcare Comment on above: Follow Up Start: 04-21-2023 End: 04-21-2023 ambulatory FEDE HAIRSTON Facility:[facility] Start: 04-21-2023 End: 04-21-2023 ambulatory Elsa Puentes [facility] Work Phone: Genetic Healthcare Comment on above: Family history of br east cancer (Primary Dx); Family history of prostate cancer Start: 04-21-2023 End: 04-21-2023 Telemedicine consultation with patient Elsa Puentes [facility] Work Phone: [facility] Start: 04-07-2023 End: 04-07-2023 ambulatory Fede Hairston MD Work Phone: Reproductive Endocrinology Infertility Comment on above: PCOS (polycystic ova kwadwo syndrome) (Primary Dx); Fertility testing Start: 04-07-2023 End: 04-07-2023 Telemedicine consultation with patient Fede Hairston MD Work Phone: [facility] Start: 02-08-2023 End: 02-08-2023 ambulatory Fede Hairston MD Work Phone: Reproductive Endocrinology Infertility Start: 02-08-2023 End: 02-08-2023 Patient encounter procedure Fede Hairston MD Work Phone: [facility] Start: 02-04-2023 Telephone encounter Fede Hairston MD Work Phone: Reproductive Endocrinology Infertility Comment on above: started letrozole Start: 06-26-2022 End: 06-26-2022 ambulatory Josefina Eliza Other [facility] Other Start: 06-26-2022 Office outpatient visit 15 minutes Josefina Kay [facility] Start: 12-05-2019 Patient encounter procedure [facility] Facility:[facility] Procedures Date Procedure Procedure Detail Performing Clinician Start: 09-27-2024 US OB BPP W NON-STRESS Generic External Data Provider Start: 09-25-2024 Urnls dip stick/tablet rgnt non-auto w/o micrscp Saravanan Zita DO Work Phone: Start: 09-14-2024 [facility] TOTAL PROTEIN 24 HOUR URINE Saravanan Zita DO Work Phone: Start: 09-13-2024 Urnls dip stick/tablet rgnt non-auto w/o micrscp Selina Denson NP Work Phone: Start: 09-12-2024 [facility] UA (CLEAN/CATCH) SCRAPPER/MICRO IF IND. Saravanan Zita DO Work Phone: Start: 09-12-2024 Blood count complete automated Ruthann Miller PA-C Work Phone: Start: 09-12-2024 Urine albumin quantitative Ruthann Miller PA-C Work Phone: Start: 09-05-2024 Follow-up visit Follow Up [facility] Start: 08-31-2024 Glucose quantitative blood xcpt reagent strip Jackson Cruz MD Work Phone: Start: 08-23-2024 GLU 1H POST 50G LOAD Not In System Ref P rov Start: 08-23-2024 ALL CBC WITH AUTO DIFF Saravanan Zita DO Work Phone: Start: 08-16-2024 Urnls dip stick/tablet rgnt non-auto w/o micrscp Rupal Rio Oso PA Work Phone: Start: 08-07-2024 US OB INCOMPLETE [...] uterus after 1st trimest 1/ gestation Ortega Mindzora DYE BLENDER.WEED THINNER Work Phone: Start: 03-27-2024 Drug scrn 1+ class nonchromo Not In System Ref Prov Start: 02-23-2024 Us pelvic nonobstetric image dcmtn limited/f/u Ortega Mindzora DYE BLENDER.WEED THINNER Work Phone: Start: 02-15-2024 Smr prim src wet mount nfct agt Robles Goldsmith DO Work Phone: Start: 02-15-2024 APTIMA MULTITEST VAGINAL Robles kenny DO Work Phone: Start: 12-21-2023 Us pelvic nonobstetric image dcmtn limited/f/u Ortega Mindzora DYE BLENDER.WE[employer] THINNER Work Phone: Start: 11-22-2023 Us pelvic nonobstetric image dcmtn limited/f/u Ortega Mindzora DYE BLENDER.WEED THINNER Work Phone: Start: 10-22-2023 Us pelvic nonobstetric image dcmtn limited/f/u Ortega Mindzora DYE BLENDER.WEED THINNER Work Phone: Start: 07-29-2023 Urine test visual color cmprsn meths Ortega Mindzora DYE BLENDER.CNM Work Phone: Start: 02-08-2023 Us pelvic nonobstetric real-time image complete Fede Hairston MD Work Phone: Plan of Treatment Date Care Activity Detail Author Start: 2070 RSV Vaccine (1 - 1-dose 75+ series) RSV Vaccine (1 - 1-dose 75+ series) [facility] Start: 2045 Zoster Vaccines (1 of 2) Zoster Vaccines (1 of 2) [facility] Start: 06-26-2032 DTaP,Tdap and Td Vaccines (7 - Td or Tdap) DTaP,Tdap and Td Vaccines (7 - Td or Tdap) [facility] [place] [facility] Start: 06-26-2032 DTaP/Tdap/Td Vaccines (7 - Td or Tdap) DTaP/Tdap/Td Vaccines (7 - Td or Tdap) [facility] Start: 06-26-2032 Urine microalbumin profile DTaP,Tdap,Td Vaccine (7 - Td or Tdap) [facility] Start: 06-20-2027 Screening for malignant neoplasm of cervix Pap Smear [facility] Start: 09-12-2025 Adult BMI Screening Adult BMI Screening [facility] Start: 09-12-2025 Tobacco Screening Tobacco Screening [facility] Start: 08-31-2025 Adult BMI Screening Adult BMI Screening [facility] Start: 07-24-2025 End: 07-24-2025 Patient encounter procedure [facility] Start: 07-18-2025 End: 10-17-2025 CBC W Auto [...] Expi res: 10/17/2025 Start: 11-27-2024 Influenza vaccination [facility] Start: 10-16-2024 End: 10-16-2024 Patient encounter procedure 10/16/2024 2:00 PM EDT Office Visit [facility] at [facility] [address] [facility] [place] [address] Vy Pemberton MD [address], [address] [place] [address], [place] [address] [facility] Start: 10-11-2024 End: 10-11-2024 Patient encounter procedure 10/11/2024 2:00 PM EDT Office Visit [facility]- [facility] at [facility] [address] [place] [address] Alton Rebolledo, DYE BLENDER-WEED THINNER [address] [facility], [place] [address] [facility] Start: 10-02-2024 End: 10-02-2024 Patient encounter procedure 10/02/2024 11:00 AM EDT Routine [facility] [address] [place] [id number] Saravanan Ahumada, DO [address] [place] [address] [facility] Start: 10-02-2024 End: 10-02-2024 Professional / ancillary services management 10/02/2024 10:30 AM EDT Ancillary Procedure [facility] [address] [place] [id number] [facility] Start: 09-25-2024 End: 09-25-2024 Patient encounter procedure 09/25/2024 1:00 PM EDT Routine [facility] [address] [place] [address] Saravanan Ahumada, DO [address] [place] [address] Arrived [facility] Comment on above: Arrived Start: 09-20-2024 End: 09-20-2024 Telemedicine consultation with patient 09/20/2024 11:00 AM EDT Telemedicine [facility] [address] [place] [place] [address] Alton Rebolledo, DYE BLENDER-WEED THINNER [address] [place] [address] [facility] Start: 09-13-2024 End: 03-15-2025 US biophysical profile w non stress test US biophysical profile w non stress test Imaging Routine History of gestational diabetes Expected: 09/13/2024 (Approximate), Expires: 03/15/2025 [facility] Work Phone: Comment on above: Expected: 09/13/2024 (Approximate), Expi res: 03/15/2025 Start: 09-13-2024 End: 01-13-2025 US for US OB follow up transabdominal approach Imaging Routine History of gestational diabetes Expected: 09/13/2024, Expires: 01/13/2025 [facility] Comment on above: Expected: 09/13/2024, Expires: Start: 09-13-2024 End: 09-13-2024 Patient encounter procedure 09/13/2024 11:30 AM EDT Routine [facility] [address] [place] [phone] Saravanan Ahumada, [address] [place] [address] [facility] Start: 09-11-2024 End: 12-11-2024 METANEPHRINES, FREE PLASMA METANEPHRINES, FREE PLASMA Lab Routine Monoallelic mutation of SDHA gene Expected: 09/11/2024, Expires: 12/11/2024 [facility] Work Phone: Comment on above: Expected: 09/11/2024, Expires: Start: 09-11-2024 End: 09-11-2024 ambulatory 09/11/2024 9:00 AM EDT [facility] Endocrinology [address] [place] [address] Mirta Gallagher MD [address] [place] [address] Monoallelic mutation of SDHA gene Endocrinology Comment on above: Monoallelic mutation of SDHA gene Start: 09-06-2024 End: 09-06-2024 Professional / ancillary services management 09/06/2024 1:30 PM EDT Ancillary Procedure [facility] [address] [place] [phone] [facility] Start: 09-05-2024 End: 09-05-2024 ambulatory 09/05/2024 2:00 PM EDT Results Only [place] [address] [address] [place] [address] SD[facility] [place] [address] Comment on above: SDHA Start: 09-05-2024 End: 09-05-2024 Patient encounter procedure 09/05/2024 1:45 PM EDT Office Visit [facility] [address] [place] [address] Мария Laboy MD [address] [place] [address] Monoallelic mutation of SDHA gene [facility] Comment on above: Monoallelic mutation of SDHA gene Start: 08-31-2024 End: 08-31-2024 ambulatory 08/31/2024 1:30 PM EDT Support Visit [facility]- [facility] at [facility] [address] [place] [phone] Cristiana Zuñiga RN [address] [facility], [address] [place] [address] DarioKirstinNereyda, [place] [address] [place] [address] [facility] Start: 08-30-2024 End: 08-30-2024 Patient encounter procedure 08/30/2024 11:20 AM EDT Routine [facility] [address] [place] [phone] Saravanan Ahumada DO [address] [facility] [place] [address] [facility] Start: 08-16-2024 End: 08-16-2024 Patient encounter procedure [facility] Comment on above: Arrived Start: 07-18-2024 End: 10-17-2024 Cardiac event monitor Cardiac event monitor Cardiac Services Routine Palpitations Expected: 07/18/2024 (Approximate), Expires: 10/17/2024 [facility] Comment on above: Expected: 07/18/2024 (Approximate), [...] Polycystic ovaries Expected: 07/18/2024 (Approximate), Expires: 10/17/2024 [facility] Comment on above: Expected: 07/18/2024 (Approximate), Expi res: 10/17/2024 Start: 07-18-2024 End: 10-17-2024 Thyrotropin [Units/volume] in Serum or Plasma TSH Lab Routine Annual physical exam 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 Polycystic ovaries Expected: 07/18/2024 (Approximate), Expires: 10/17/2024 [facility] Comment on above: Expected: 07/18/2024 (Approximate), Expi res: 10/17/2024 Start: 07-18-2024 End: 10-17-2024 US Heart Transthoracic Transthoracic echo (TTE) complete Echocardiography Routine Palpitations Murmur Expected: 07/18/2024 (Approximate), Expires: 10/17/2024 [facility] Comment on above: Expected: 07/18/2024 (Approximate), Expi res: 10/17/2024 Start: 07-18-2024 End: 07-18-2024 Patient encounter procedure 07/18/2024 9:15 AM EDT Office Visit [facility] [address] [place] [phone] Lito Velazquez MD [address] [place] [address] [facility] Start: 07-17-2024 End: 07-17-2025 CBC panel - Blood by Automated count CBC Lab Routine Diabetes mellitus screening Expected: 07/17/2024 (Approximate), Expires: 07/17/2025 [facility] Work Phone: Comment on above: Expected: 07/17/2024 (Approximate), Expi res: 07/17/2025 Start: 07-17-2024 End: 07-17-2025 Measurement of glucose 1 hour after glucose challenge for glucose tolerance test Glucose tolerance, 1 hour Lab Routine Diabetes mellitus screening Expected: 07/17/2024 (Approximate), Expires: 07/17/2025 [facility] Comment on above: Expected: 07/17/2024 (Approximate), Expi res: 07/17/2025 Start: 06-19-2024 End: 06-19-2024 Patient encounter procedure [facility] Start: 05-23-2024 End: 05-23-2024 Patient encounter procedure 05/23/2024 4:00 PM EST Office Visit [facility] [address] [place] [phone] Andrew Ferrer, DPM [address] [place], [place] [phone] [facility] Start: 05-22-2024 End: 07-20-2024 Alpha fetoprotein, maternal Alpha fetoprotein, maternal Lab Routine Second trimester 14 weeks gestation of Expected: 05/22/2024 (Approximate), Expires: 07/20/2024 [facility] Work Phone: Comment on above: Expected: 05/22/2024 (Approximate), Expi res: 07/20/2024 Start: 05-22-2024 End: 05-22-2025 US Pelvis transvaginal US OB transvaginal Imaging Routine Spotting in Expected: 05/22/2024, Expires: 05/22/2025 [facility] Comment on above: Expected: 05/22/2024, Expires: Start: 05-22-2024 End: 05-22-2024 Patient encounter procedure [facility] Comment on above: Arrived Start: 05-01-2024 End: 05-01-2024 ambulatory 05/01/2024 3:15 PM EST Initial [facility] [address] [address] Manju Alford DO [address] [address] [facility] Start: 04-21-2024 End: 04-21-2025 ABO/Rh ABO/Rh Lab Routine Missed menses , unspecified gestational age Expected: 04/21/2024 (Approximate), Expires: 04/21/2025 [facility] Comment on above: Expected: 04/21/2024 (Approximate), Expi res: 04/21/2025 Start: 04-21-2024 End: 04-21-2025 Blood type and Indirect antibody screen panel - Blood Type and screen Lab Routine Missed menses , unspecified gestational age Expected: 04/21/2024 (Approximate), Expires: 04/21/2025 [facility] Comment on above: Expected: 04/21/2024 (Approximate), Expi res: 04/21/2025 Start: 04-21-2024 End: 04-21-2025 Drugs of abuse panel - Urine by Screen method Rapid drug screen, urine Lab Routine , unspecified gestational age Encounter for supervision of normal first in first trimester Expected: 04/21/2024 (Approximate), Expires: 04/21/2025 [facility] Comment on above: Expected: 04/21/2024 (Approximate), Expi res: 04/21/2025 Start: 04-20-2024 End: 04-20-2025 US Pelvis transvaginal US OB transvaginal Imaging Routine Missed menses Expected: 04/20/2024, Expires: 04/20/2025 [facility] Work Phone: Comment on above: Expected: 04/20/2024, Expires: Start: 04-12-2024 End: 04-12-2024 Professional / ancillary services management 04/12/2024 4:00 PM EST Ancillary Procedure [facility] [address] [address] [facility] Start: 2024 End: 2024 Nursing evaluation of patient and report 2024 11:10 AM EST Nurse Visit [facility] [address] [place] [address] ob scan [facility] Comment on above: ob scan Start: 03-30-2024 End: 03-30-2024 Patient encounter procedure 03/30/2024 12:40 PM [facility] Endocrinology [address] [place] [address] Cira Garcia V, MD [address] [place] [address] Weight management Endocrinology Comment on above: Weight management Start: 03-27-2024 End: 03-27-2025 Bacteria identified in Urine by Culture Urine culture Microbiology Routine Encounter for supervision of normal first in first trimester Expected: 03/27/2024 (Approximate), Expires: 03/27/2025 [facility] Comment on above: Expected: 03/27/2024 (Approximate), Expi res: 03/27/2025 Start: 03-27-2024 End: 03-27-2025 Blood type and Indirect antibody screen panel - Blood Type and screen Lab Routine Encounter for supervision of normal first in first trimester Expected: 03/27/2024 (Approximate), Expires: 03/27/2025 [facility] Comment on above: Expected: 03/27/2024 (Approximate), Expi res: 03/27/2025 Start: 03-27-2024 End: 03-27-2025 CBC W Auto Differential panel - Blood CBC and differential Lab Routine Encounter for supervision of normal first in first trimester Expected: 03/27/2024 (Approximate), Expires: 03/27/2025 [facility] Comment on above: Expected: 03/27/2024 (Approximate), Expi res: 03/27/2025 Start: 03-27-2024 End: 03-27-2025 DRUG SCREEN 17 W/CONF, UR DRUG SCREEN 17 W/CONF, UR Lab Routine Encounter for supervision of normal first in first trimester Encounter for drug screening Expected: 03/27/2024 (Approximate), Expires: 03/27/2025 [facility] Comment on above: Expected: 03/27/2024 (Approximate), Expi res: 03/27/2025 Start: 03-27-2024 End: 03-27-2025 Hepatitis B virus surface Ag [Presence] in Serum or Plasma by Immunoassay Hepatitis B surface antigen Lab Routine Encounter for supervision of normal first in first trimester Expected: 03/27/2024 (Approximate), Expires: 03/27/2025 [facility] Comment on above: Expected: 03/27/2024 (Approximate), Expi res: 03/27/2025 Start: 03-27-2024 End: 03-27-2025 Hepatitis C virus Ab [Presence] in Serum or Plasma by Immunoassay Hepatitis C antibody Lab Routine Encounter for supervision of normal first in first trimester Expected: 03/27/2024 (Approximate), Expires: 03/27/2025 [facility] Comment on above: Expected: 03/27/2024 (Approximate), Expi res: 03/27/2025 Start: 03-27-2024 End: 03-27-2025 HIV-1/HIV-2 antigen/antibody combination immunoassay HIV-1 and HIV-2 antibodies Lab Routine Encounter for supervision of normal first in first trimester Expected: 03/27/2024 (Approximate), Expires: 03/27/2025 [facility] Comment on above: Expected: 03/27/2024 (Approximate), Expi res: 03/27/2025 Start: 03-27-2024 End: 03-27-2025 Reagin Ab [Presence] in Serum by RPR RPR Lab Routine Encounter for supervision of normal first in first trimester Expected: 03/27/2024 (Approximate), Expires: 03/27/2025 [facility] Comment on above: Expected: 03/27/2024 (Approximate), Expi res: 03/27/2025 Start: 03-27-2024 End: 03-27-2025 Rubella antibody, IgG Rubella antibody, IgG Lab Routine Encounter for supervision of normal first in first trimester Expected: 03/27/2024 (Approximate), Expires: 03/27/2025 [facility] Comment on above: Expected: 03/27/2024 (Approximate), Expi res: 03/27/2025 Start: 03-27-2024 End: 03-27-2025 Urinalysis complete panel - Urine Urinalysis with microscopic Lab Routine Encounter for supervision of normal first in first trimester Expected: 03/27/2024 (Approximate), Expires: 03/27/2025 [facility] Work Phone: Comment on above: Expected: 03/27/2024 (Approximate), Expi res: 03/27/2025 Start: 03-17-2024 End: 03-17-2025 OBSTETRIC ULTRASOUND WHI OBSTETRIC ULTRASOUND WHI Anc Imaging Routine Supervision of with history of infertility, first trimester Expected: 03/17/2024, Expires: 03/17/2025 [facility] Work Phone: Comment on above: Expected: 03/17/2024, Expires: Start: 03-17-2024 End: 03-17-2024 Patient encounter procedure 03/17/2024 2:00 PM EST [facility]ductive Endocr[facility]ology Infertility [address] [place], [place] [id number] [place], DEBBIE.WEED THINNER [address] [facility] [address] [place] [id number] new preg [facility] Comment on above: new preg Start: 03-16-2024 End: 06-15-2024 Choriogonadotropin.be ta subunit [Units/volume] in Serum or Plasma HCG QUANTITATIVE Lab Routine Encounter for test, result positive Expected: 03/16/2024, Expires: 06/15/2024 [facility] Work Phone: Comment on above: Expected: 03/16/2024, Expires: Start: 03-15-2024 End: 03-15-2024 Patient encounter procedure 03/15/2024 3:45 PM EST Office Visit [facility] [address] [place] [address] [place] [address] lab [facility] Comment on above: lab Start: 02-28-2024 End: 05-29-2024 Progesterone [Mass/volume] in Serum or Plasma PROGESTERONE Lab Routine Female infertility Expected: 02/28/2024, Expires: 05/29/2024 [facility] Work Phone: Comment on above: Expected: 02/28/2024, Expires: Start: 02-26-2024 End: 02-26-2024 Patient encounter procedure 02/26/2024 6:00 PM EST Office Visit [facility] [address] [place] [address] follicle us -benefit check [facility] Comment on above: follicle us -benefit check Start: 02-23-2024 End: 02-23-2024 Nursing evaluation of patient and report 02/23/2024 7:00 AM EST Nurse Visit [facility] [address] [place] [address] Rej, Nurse Gayathri [facility] [address] [place] [address] midcycle [facility] Comment on above: midcycle Start: 02-17-2024 End: 02-17-2024 Follow-up encounter 02/17/2024 9:30 AM EST [facility] [address] [place] [address] Fede Hairston MD [address] [place] [address] follow up [facility] Comment on above: follow up Start: 02-15-2024 End: 02-14-2025 FOLLICULAR US WHI FOLLICULAR US WHI Anc Imaging Routine Female infertility Expected: 02/15/2024, Expires: 02/14/2025 [facility] Work Phone: Comment on above: Expected: 02/15/2024, Expires: Start: 01-19-2024 End: 01-19-2024 Patient encounter procedure 01/19/2024 6:00 PM EDT Office Visit [facility] [address] [place] [address] iui-benefit check [facility] Comment on above: iui-benefit check Start: 12-13-2023 End: 12-12-2024 FOLLICULAR US WHI FOLLICULAR US WHI Anc Imaging Routine Female infertility Expected: 12/13/2023, Expires: 12/12/2024 [facility] Work Phone: Comment on above: Expected: 12/13/2023, Expires: Start: 11-28-2023 Covid-19 Vaccine ( season) Covid-19 Vaccine () [facility] Start: 11-28-2023 Covid-19 Vaccine ( season) Covid-19 Vaccine () [facility] Start: 11-28-2023 Influenza vaccination [facility] Start: 11-22-2023 End: 11-22-2023 Nursing evaluation of patient and report 11/22/2023 7:15 AM EDT Nurse Visit [facility] [address] [place] [address] Rej, Nurse Gayathri [facility] [address] [place] [address] Follicular scan [facility] Comment on above: Follicular scan Start: 11-18-2023 End: 11-18-2023 Patient encounter procedure 11/18/2023 6:00 PM EDT Office Visit [facility] [address] [place] [address] midcycle-benefit check [facility] Comment on above: midcycle-benefit check Start: 11-15-2023 End: 11-14-2024 FOLLICULAR US WHI FOLLICULAR US WHI Anc Imaging Routine Female infertility Expected: 11/15/2023, Expires: 11/14/2024 [facility] Work Phone: Comment on above: Expected: 11/15/2023, Expires: Start: 11-04-2023 End: 11-04-2023 Patient encounter procedure Endocrinology Comment on above: MED WT MGMT Start: 10-22-2023 End: 10-22-2023 Nursing evaluation of patient and report 10/22/2023 7:00 AM EDT Nurse Visit [facility] [address] [place] [address] Rej, Nurse Gayathri [facility] [address] [place] [address] midcycle [facility] Comment on above: midcycle Start: 09-19-2023 End: 12-19-2023 Progesterone [Mass/volume] in Serum or Plasma PROGESTERONE Lab Routine Irregular menstrual cycle Expected: 09/19/2023 (Approximate), Expires: 12/19/2023 [facility] Work Phone: Comment on above: Expected: 09/19/2023 (Approximate), Expi res: 12/19/2023 Start: 09-10-2023 End: 09-10-2023 Patient encounter procedure 09/10/2023 3:00 PM EDT [facility] [address] [facility] [place] [address] Ortega Morrissey APRN.CNM [address] [facility] [address] [place] [id number] IUI teach [facility] Comment on above: IUI teach Start: 09-10-2023 End: 12-10-2023 Chlamydia trachomatis+Neisseria gonorrhoeae DNA [Presence] in Unspecified specimen by JANESSA with probe detection GONORRHEA/CHLAMYDIA NAAT Lab Routine Screen for sexually transmitted diseases Expected: 09/10/2023 (Approximate), Expires: 12/10/2023 [facility] Comment on above: Expected: 09/10/2023 (Approximate), Expi res: 12/10/2023 Start: 09-10-2023 End: 12-10-2023 Choriogonadotropin.be ta subunit [Units/volume] in Serum or Plasma HCG QUANTITATIVE Lab Routine Secondary amenorrhea Expected: 09/10/2023, Expires: 12/10/2023 [facility] Comment on above: Expected: 09/10/2023, Expires: 4 Start: 09-10-2023 End: 09-09-2024 FOLLICULAR US WHI FOLLICULAR US WHI Anc Imaging Routine Female infertility Expected: 09/10/2023, Expires: 09/09/2024 [facility] Comment on above: Expected: 09/10/2023, Expires: 5 Start: 09-10-2023 End: 12-10-2023 Hepatitis B virus surface Ag [Presence] in Serum HEPATITIS B SURFACE ANTIGEN Lab Routine Screen for sexually transmitted diseases Expected: 09/10/2023, Expires: 12/10/2023 [facility] Comment on above: Expected: 09/10/2023, Expires: 4 Start: 09-10-2023 End: 12-10-2023 Hepatitis C virus Ab [Presence] in Serum HEPATITIS C ANTIBODY IA WITH CONFIRMATION Lab Routine Screen for sexually transmitted diseases Expected: 09/10/2023, Expires: 12/10/2023 [facility] Comment on above: Expected: 09/10/2023, Expires: Start: 09-10-2023 End: 12-10-2023 HIV 1+2 Ab [Presence] in Serum or Plasma by Immunoassay HIV 1/2 COMBO WITH REFLEX TO DIFFERENTIATION Lab Routine Screen for sexually transmitted diseases Expected: 09/10/2023, Expires: 12/10/2023 [facility] Comment on above: Expected: 09/10/2023, Expires: Start: 09-10-2023 End: 12-10-2023 Progesterone [Mass/volume] in Serum or Plasma PROGESTERONE Lab Routine Secondary amenorrhea Expected: 09/10/2023, Expires: 12/10/2023 [facility] Work Phone: Comment on above: Expected: 09/10/2023, Expires: Start: 09-10-2023 End: 12-10-2023 SYPHILIS TOTAL W/REFLEX SYPHILIS TOTAL W/REFLEX Lab Routine Screen for sexually transmitted diseases Expected: 09/10/2023, Expires: 12/10/2023 [facility] Comment on above: Expected: 09/10/2023, Expires: Start: 09-02-2023 End: 12-02-2023 Choriogonadotropin.be ta subunit [Units/volume] in Serum or Plasma [facility] Comment on above: Expected: 09/02/2023, Expires: Start: 09-02-2023 End: 12-02-2023 Progesterone [Mass/volume] in Serum or Plasma [facility] Work Phone: Comment on above: Expected: 09/02/2023, Expires: Start: 08-19-2023 End: 08-19-2023 Follow-up encounter 08/19/2023 10:30 AM EDT [facility] [address] [place], [place] [id number] Fede Hairston MD [address] [place] [address] follow up / rescheduled ok per KF [facility] Comment on above: follow up / rescheduled ok per KF Start: 08-17-2023 End: 08-17-2023 Patient encounter procedure 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 Start: 06-16-2023 End: 09-15-2023 METANEPHRINES, FREE PLASMA METANEPHRINES, FREE PLASMA Lab Routine Monoallelic mutation of SDHA gene Expected: 06/16/2023, Expires: 09/15/2023 [facility] Work Phone: Comment on above: Expected: 06/16/2023, Expires: Start: 06-01-2023 Varicella vaccination Varicella Vaccines (2 of 2 - 2-dose childhood series) [facility] Start: 05-17-2023 End: 08-16-2023 MISC SEND OUT TST 1 MISC SEND OUT TST 1 Lab Routine Family history of cancer Family history of gene mutation Expected: 05/17/2023, Expires: 08/16/2023 [facility] Work Phone: Comment on above: Expected: 05/17/2023, Expires: Start: 04-17-2023 End: 07-17-2023 Progesterone [Mass/volume] in Serum or Plasma PROGESTERONE BLD Lab Routine PCOS (polycystic ovarian syndrome) Expected: 04/17/2023 (Approximate), Expires: 07/17/2023 [facility] Work Phone: Comment on above: Expected: 04/17/2023 (Approximate), Expi res: 07/17/2023 Start: 03-29-2023 Behavioral Health Screening Behavioral Health Screening [facility] Start: 03-29-2023 Depression Assessment Depression Assessment [facility] Start: 02-04-2023 End: 05-06-2023 Progesterone [Mass/volume] in Serum or Plasma PROGESTERONE BLD Lab Routine Encounter for fertility testing Expected: 02/04/2023, Expires: 05/06/2023 [facility] Work Phone: Comment on above: Expected: 02/04/2023, Expires: Start: 11-27-2022 Covid-19 Vaccine ( season) Covid-19 Vaccine ( season) [facility] Start: 11-27-2022 Influenza vaccination Influenza Vaccine (#1) [facility] Start: 03-29-2022 Depression Assessment Depression Assessment [facility] Start: 2016 Pap Testing Pap Testing [facility] Start: 2016 Screening for malignant neoplasm of cervix [facility] Start: 2014 Hepatitis A Vaccines (1 of 2 - Risk 2-dose series) Hepatitis A Vaccines (1 of 2 - Risk 2-dose series) [facility] Start: 2014 Urine microalbumin profile DTaP,Tdap,Td Vaccine (1 - Tdap) [facility] Start: 2013 Adult BMI Follow Up Plan Adult BMI Follow Up Plan [facility] Start: 2013 Adult BMI Screening Adult BMI Screening [facility] Start: 2013 Anxiety Screening Anxiety Screening [facility] Start: 2013 Depression Screening Depression Screening [facility] Start: 2013 Hepatitis C Screening Hepatitis C Screening [facility] Start: 2013 Hepatitis C screening Hepatitis C Screening [facility] Start: 2013 HIV Screening HIV Screening [facility] Start: 2013 HIV screening HIV Screening [facility] Start: 2007 Depression Screening Depression Screening [facility] Start: 2007 Tobacco Screening Tobacco Screening [facility] Start: 1995 Covid-19 Vaccine (#1) Covid-19 Vaccine (#1) [facility] Start: 1995 Hepatitis B Vaccine (1 of 3 - 3-dose series) Hepatitis B Vaccine (1 of 3 - 3-dose series) [facility] Start: 1995 HIV screening HIV Screening [facility] Start: 1995 Lipid panel Lipid Panel [facility] Start: 1995 Yearly Adult Physical Yearly Adult Physical [facility] Bacteria identified in Urine by Culture Urine culture Microbiology Routine Missed menses Ordered: 04/21/2024 [facility] Comment on above: Ordered: 04/21/2024 Bacteria identified in Urine by Culture Urine culture Microbiology Routine Urinary tract infection without hematuria, site unspecified Ordered: 05/15/2024 [facility] [employer] Work Phone: Comment on above: Ordered: 05/15/2024 End: 05-17-2024 Cath & saline/contrast sonohyster/hysterosal pi XR HYSTEROSALPINGOGRAM Radiology Routine Fertility testing 1 Occurrences starting 04/18/2023 until 05/17/2024 [facility] Work Phone: Comment on above: 1 Occurrences starting 04/18/2023 until 05/17/2024 End: 09-12-2025 CBC panel - Blood by Automated count CBC without diff Lab Routine Insulin controlled gestational diabetes mellitus (GDM) in third trimester Abnormal liver enzymes Elevated blood pressure affecting , antepartum 1 Occurrences starting 09/12/2024 until 09/12/2025 [employer] Comment on above: 1 Occurrences starting 09/12/2024 until 09/12/2025 CBC W Auto Differential panel - Blood CBC and differential Lab Routine Missed menses , unspecified gestational age Ordered: 04/21/2024 [facility] Comment on above: Ordered: 04/21/2024 End: 03-13-2025 Choriogonadotropin.be ta subunit [Units/volume] in Serum or Plasma HCG QUANTITATIVE Lab Routine examination or test, unconfirmed Daily for 2 Occurrences starting 03/13/2024 until 03/13/2025 [facility] Work Phone: Comment on above: Daily for 2 Occurrences starting 024 until 03/13/2025 Choriogonadotropin.b e ta subunit [Units/volume] in Serum or Plasma HCG QUANTITATIVE Lab Routine examination or test, unconfirmed 03/13/2024 3:37 PM [facility] End: 09-12-2025 Comprehensive metabolic 2000 panel - Serum or Plasma Comprehensive metabolic panel Lab Routine Abnormal liver enzymes Abnormal genetic test Gestational diabetes requiring insulin Elevated blood pressure affecting , antepartum 1 Occurrences starting 09/12/2024 until 09/12/2025 [employer] Work Phone: Comment on above: 1 Occurrences starting 09/12/2024 until 09/12/2025 End: 07-15-2024 CT Abdomen W contrast IV CT ABDOMEN W IVCON Radiology Routine Intra-abdominal and pelvic swelling, mass and lump, unspecified site 1 Occurrences starting 06/16/2023 until 07/15/2024 [facility] Work Phone: Comment on above: 1 Occurrences starting 06/16/2023 until 07/15/2024 End: 07-15-2024 CT Chest W contrast IV CT CHEST W IVCON Radiology Routine Localized enlarged lymph nodes 1 Occurrences starting 06/16/2023 until 07/15/2024 [facility] Work Phone: Comment on above: 1 Occurrences starting 06/16/2023 until 07/15/2024 End: 07-15-2024 CT Neck W contrast IV CT NECK SOFT TISSUE W IVCON Radiology Routine Localized enlarged lymph nodes 1 Occurrences starting 06/16/2023 until 07/15/2024 [facility] Work Phone: Comment on above: 1 Occurrences starting 06/16/2023 until 07/15/2024 Hemoglobin A1c/Hemoglobin.total in Blood Hemoglobin A1c Lab Routine Missed menses , unspecified gestational age Ordered: 04/21/2024 [facility] Comment on above: Ordered: 04/21/2024 Hepatitis B virus surface Ag [Presence] in Serum or Plasma by Immunoassay Hepatitis B surface antigen Lab Routine Missed menses , unspecified gestational age Ordered: 04/21/2024 [facility] Comment on above: Ordered: 04/21/2024 Hepatitis C virus Ab [Presence] in Serum or Plasma by Immunoassay Hepatitis C antibody Lab Routine Missed menses , unspecified gestational age Ordered: 04/21/2024 [facility] Comment on above: Ordered: 04/21/2024 HIV-1/HIV-2 antigen/antibody combination immunoassay HIV-1 and HIV-2 antibodies Lab Routine Missed menses , unspecified gestational age Ordered: 04/21/2024 [facility] Comment on above: Ordered: 04/21/2024 IGP,rfxAptima HPV all,16/18,45 IGP,rfxAptima HPV all,16/18,45 Pathology and Cytology Routine Screening for malignant neoplasm of cervix Ordered: 02/15/2024 [facility] Work Phone: Comment on above: Ordered: 02/15/2024 Reagin Ab [Presence] in Serum by RPR RPR Lab Routine Missed menses , unspecified gestational age Ordered: 04/21/2024 [facility] Comment on above: Ordered: 04/21/2024 RF Uterus and Fallopian tubes Views W contrast IU XR HYSTEROSALPINGOGRAM Radiology Routine Fertility testing 07/29/2023 2:03 PM EDT [facility] Work Phone: Rubella antibody, IgG Rubella an tibody, IgG Lab Routine Missed menses , unspecified gestational age Ordered: 04/21/2024 [facility] Comment on above: Ordered: 04/21/2024 End: 09-12-2025 Urine protein creatinine ratio Urine protein creatinine ratio Lab Routine Gestational diabetes requiring insulin Elevated blood pressure affecting , antepartum 1 Occurrences starting 09/12/2024 until 09/12/2025 [facility] Comment on above: 1 Occurrences starting 09/12/2024 until 09/12/2025 End: 03-01-2025 US for US OB follow up transabdominal approach Imaging Routine Gestational diabetes mellitus (GDM), antepartum, gestational diabetes method of control unspecified [id number] for 8 Occurrences starting 08/30/2024 until 03/01/2025 [facility] Work Phone: Comment on above: [id number] for 8 Occurrences starting 08/30 until 03/01/2025 US Pelvis transvaginal US OB transvaginal Imaging Routine Missed menses 04/21/2024 8:47 AM EST [facility] Immunizations Immunization Date Immunization Notes Care Provider Trina oconnell 05-04-2023 measles, mumps and rubella virus vaccine Robles Goldsmith DO Work Phone: [facility] 06-26-2022 tetanus toxoid, reduced diphtheria toxoid, and acellular pertussis vaccine, adsorbed Josefina Eliza Other [employer] Other 08-12-2015 Human Papillomavirus 9-valent vaccine Robles Goldsmith DO Work Phone: [facility] 04-10-2015 Human Papillomavirus 9-valent vaccine Robles Goldsmith DO Work Phone: [facility] 01-30-2015 influenza, seasonal, injectable, preservative free Robles Goldsmith DO Work Phone: [facility] 01-30-2015 influenza virus vaccine, unspecified formulation Fede Hairston MD Work Phone: [facility] 12-05-2014 Human Papillomavirus 9-valent vaccine Robles Goldsmith DO Work Phone: [facility] 02-13-2009 novel [id number], preservative-free, injectable Robles Goldsmith DO Work Phone: [facility] 08-12-2006 meningococcal polysaccharide (groups A, C, Y and W-135) diphtheria toxoid conjugate vaccine (MCV4P) Robles Goldsmith DO Work Phone: [facility] 08-10-2000 diphtheria, tetanus toxoids and acellular pertussis vaccine, unspecified formulation Robles Goldsmith DO Work Phone: [facility] 08-10-2000 measles, mumps and rubella virus vaccine Robles Goldsmith DO Work Phone: [facility] 08-10-2000 poliovirus vaccine, inactivated Robles Goldsmith DO Work Phone: [facility] 08-04-1996 diphtheria, tetanus toxoids and acellular pertussis vaccine, unspecified formulation Robles Goldsmith DO Work Phone: [facility] 08-04-1996 haemophilus influenzae type b vaccine, conjugate unspecified formulation Robles Goldsmith DO Work Phone: [facility] 08-04-1996 varicella virus vaccine Robles Goldsmith DO Work Phone: [facility] 04-21-1996 measles, mumps and rubella virus vaccine Robles Goldsmith DO Work Phone: [facility] 03-17-1996 diphtheria, tetanus toxoids and acellular pertussis vaccine, unspecified formulation Robles Rupal DO Work Phone: [facility] 03-17-1996 haemophilus influenzae type b vaccine, conjugate unspecified formulation Robles Pyleer DO Work Phone: [facility] 03-17-1996 hepatitis B vaccine, pediatric or pediatric/adolescent dosage Robles Pyleer DO Work Phone: [facility] 03-17-1996 trivalent poliovirus vaccine, live, oral Robles Pyleer DO Work Phone: [facility] 1995 diphtheria, tetanus toxoids and pertussis vaccine Robles Rupal DO Work Phone: [facility] 1995 haemophilus influenzae type b vaccine, conjugate unspecified formulation Robles Pyleer DO Work Phone: [facility] 1995 hepatitis B vaccine, pediatric or pediatric/adolescent dosage Robles Pyleer DO Work Phone: [facility] 1995 trivalent poliovirus vaccine, live, oral Robles Pyleer DO Work Phone: [facility] 1995 diphtheria, tetanus toxoids and pertussis vaccine Robles Rupal DO Work Phone: [facility] 1995 haemophilus influenzae type b vaccine, conjugate unspecified formulation Robles Pyleer DO Work Phone: [facility] 1995 hepatitis B vaccine, pediatric or pediatric/adolescent dosage Robles Pyleer DO Work Phone: [facility] 1995 trivalent poliovirus vaccine, live, oral Robles Goldsmith DO Work Phone: [facility] Payers Date Payer Category Payer [employer] [facility] - POS [id number] 2024 [employer] [facility] - PPO [employer] [id number] 2024 Private Health Insurance [id number] 2024 Unknown [id number] 2021 Private Health Insurance [id number] 2021 Managed Care (Private) [facility] [id number] 2021 Managed Care HMO (unspecified) [id number] 2021 Private Health Insurance [id number] 1995 Unknown [id number] 2.16.840.1.438287.3.579.2 .593 1995 Unknown [id number] 2.16.840.1.156336.3.579.2 .1243 1995 Unknown [id number] 2.16.840.1.092798.3.579.2 .1244 1995 Unknown [id number] 2.16.840.1.328861.3.579.2 .1286 1995 Unknown [id number] 2.16.840.1.229018.3.579.2 .1286 1995 Unknown [id number] 2.16.840.1.095724.3.579.2 .1286 1995 Unknown [id number] 2.16.840.1.348141.3.579.2 .1258 1995 Unknown [id number] 2.16.840.1.253785.3.579.2 .1258 1995 Unknown [id number] 2.16.840.1.606071.3.579.2 .1258 1995 Unknown [id number] 2.16.840.1.072657.3.579.2 .1258 1995 Unknown [id number] 2.16.840.1.602627.3.579.2 .1258 1995 Unknown [id number] 2.16.840.1.850317.3.579.2 .1258 1995 Unknown [id number] 2.16.840.1.067098.3.579.2 .1258 1995 Unknown [id number] 2.16.840.1.749231.3.579.2 .1258 1995 Unknown [id number] 2.16.840.1.771486.3.579.2 .1258 1995 Unknown [id number] 2.16.840.1.388201.3.579.2 .1258 1995 Unknown [id number] 2.16.840.1.167344.3.579.2 .1258 1995 Unknown [id number] 2.16.840.1.661633.3.579.2 .1258 1995 Unknown [id number] 2.16.840.1.197336.3.579.2 .1258 1995 Unknown [id number] 2.16.840.1.158534.3.579.2 .1259 1995 Unknown [id number] 2.16.840.1.465630.3.579.2 .1259 1995 Unknown [id number] 2.16.840.1.453880.3.579.2 .1259 1995 Unknown [id number] 2.16.840.1.271719.3.579.2 .9 1995 Unknown [id number] 2.16.840.1.617257.3.579.2 .1259 1959 Self-pay Unknown MMO [id number] Unknown HCAP/HFA/FAP Active [id number] Unknown [id number] 2.16.840.1.408705.3.579.2 .531 Social History Date Type Detail Facility Unknown if ever smoked [employer] Other Start: 01-04-2023 End: 07-18-2024 Sex Assigned At [facility] Other Start: 10-05-2022 End: 12-29-2022 Tobacco smoking status NHIS Never smoked tobacco [facility] Start: 10-05-2022 End: 12-29-2022 Tobacco use and exposure Smokeless tobacco non-user [facility] Start: 01-04-2023 End: 09-05-2024 Alcohol intake Current drinker of alcohol (finding) [facility] Start: 01-04-2023 End: 07-18-2024 History of Social function [facility] Start: 12-29-2022 Alcohol Comment rare, socially [facility] Start: 1995 Sex Assigned At Female C [facility] Start: 01-04-2023 Gender identity Identifies as female gender (finding) [facility] National Score (1-100), lower number is lower risk 64 [facility] Start: 02-15-2024 End: 09-12-2024 Alcoholic beverage intake Ex-drinker (finding) [facility] How often to you hav e a drink containing alcohol? Never [facility] Start: 07-13-2023 Alcohol Comment Caffeine intak e: 1 cup per day coffee [facility] Start: 1995 Sex assigned at Not on file N [facility] Start: 02-27-2024 End: 03-08-2024 Exposure to SARS-CoV-2 (event) Not sure [facility] Start: 03-27-2024 Alcohol Comment Caffeine intak e:less than 100 mg daily [facility] Start: 02-27-2024 [facility] Start: 05-23-2024 End: 07-18-2024 Alcoholic beverage intake Lifetime non-drinker (finding) [facility] Start: 08-25-2024 End: 08-29-2024 Sex Female (finding) [facility] [facility] Procedure Code Equipment Code Equipment Origin al Text Equipment Identifier Dates To be used to in ject HCG trigger [id number] Start: 02-17-2024 End: 03-17-2024 To be used to mi x, draw up and inject HCG trigger [id number] Start: 02-17-2024 End: 03-17-2024 1 strip by In Vi tro route Daily Use in the morning prior to breakfast, 1 hour after each meal for a total of 4times daily. [id number] Start: 08-25-2024 End: 09-24-2024 1 each by In Vit ro route Daily Use to check FSBS four times daily [id number] Start: 08-25-2024 End: 09-24-2024 Goals Date Patient Goal Desired Activity /State Personal health goal Functional Status Date Assessment Result Facility 07-18-2024 Patient Health [facility] ionnaire 2 item (PHQ-2) [Reported] [facility] Clinical Notes 03-29-2020 to 09-25-2024 Paula Rivera LPN - 09/25/2024 1:00 PM CARLOS Hercules - 09/20/2024 11:00 AM Petar Denson NP - 09/13/2024 11:30 AM Shannan Miller PA-C - 09/12/2024 4:03 PM EDT Note Date & Type Note Facility 09-25-2024 History of Present illness Narrative Reason for [...] cream Topical, Daily Blood Glucose Monitoring Suppl (D-Secure Mentem Glucometer) w/Device kit 1 kit, Does not [...] nursing note reviewed. Exam conducted with a parks and recreation manager present. Vitals: Estimated body mass index is 39.95 kg/m as calculated from the following: Height as of 07/18/24: 5' 3 . Weight as of this encounter: 225 lb 8 oz. BP: 130/80 Patient's last menstrual period was 02/13/2024 (approximate). ASSESSMENT & PLAN ICD-10-CM 1. Third trimester ([facility]) Z34.93 POCT urinalysis dipstick manually resulted 2. Insulin controlled gestational diabetes mellitus (GDM) during , antepartum ([facility]) O24.414 3. 32 weeks gestation of ([facility]) Z3A.32 Return OB: Patient presents today for a routine obstetrics appointment. Patient is currently 32w1d . Patient states she is doing well but has complaints of being tired due to current . Patient has verbalizes frequent movement. labor precautions was discussed/given and patient was instructed to perform kick counts three times a day. Pt to continue to call sugars into MFM. Pt to start NST/BPPs, and growth ultrasounds every 4 weeks. Orders Placed This Encounter Procedures POCT urinalysis dipstick manually resulted Follow Up: Patient is to return to office in 2 week for routine OB appointment. Documented by Paula Rivera LPN on behalf of: Saravanan Ahumada DO documented in this encounter [facility] 09-20-2024 History of Present illness Narrative REASON FOR OFFICE VISIT: Video Visit via Real-time Synchronous Audiovisual Provider Location: [facility] AT [address] [id number] Patient Location: Patient's home Video Visit Consent Statement: I discussed risks, benefits, and alternatives of a real-time synchronous audiovisual consultation with the patient (and any accompanying persons) including the risks that the patient's personal health details and medical records will be discussed over real-time, synchronous, interactive video/audio/telecommunication technology, the visit will not be recorded without the express consent of both the provider and the patient, and that there are some limitations compared to ijqa-xt-qpce evaluations. The patient consented to the presence [...] fluid or chest pain. +FM. She is being followed at [facility] due to GDMA2. States she is following [...] to monitor blood glucose. Change every 10 days, Disp: 5 each, Rfl: 10 fluticasone propionate (FLONASE) 50 mcg/actuation nasal spray, Administer 1 spray into each nostril in the morning. (Patient not taking: Reported on 09/12/2024), Disp: , Rfl: insulin glargine (LANTUS SOLOSTAR U-100 INSULIN) 100 unit/mL (3 mL) insulin pen, Inject 12 units every evening. Prime with 2 units., Disp: 15 mL, Rfl: 2 medroxyPROGESTERone (PROVERA) 10 mg tablet, Take 1 tablet (10 mg total) by mouth in the morning. (Patient not taking: Reported on 09/12/2024), Disp: , Rfl: rb681-gcpl-rompl acid ( 19) 29 mg iron- 1 [...] TOTALT4 , THYROIDAB No results found for: [id number] No results found for: CREATININE , BUN [...] 6% has the lowest risk for LGA Pre-E s/s reviewed: BP >160/110, epigastric or [...] by e-mail to: or by fax to: [phone] TIME OF CONSULTATION: 20 minutes with the patient, >50% in discussion and counseling, coordination of care which was okhz-ml-jcqa, review of records and communication back to referring provider. CARLOS Ford 09/20/24 1121 documented in this encounter [facility] 09-13-2024 History of Present illness Narrative Reason [...] cream Topical, Daily Blood Glucose Monitoring Suppl (Maclear Glucometer) w/Device kit 1 kit, Does not [...] ASSESSMENT & PLAN ICD-10-CM 1. Third trimester ([facility]) Z34.93 POCT urinalysis dipstick manually resulted 2. 31 weeks gestation of ([facility]) Z3A.31 Return OB: Patient presents today for [...] NST/ BPP. Patient with elevated B/P in [facility] office and currently collecting 24 hour urine and hypertension labs obtained yesterday. Patient will Begin Lantus at 12 units in the pm and glucose will be monitored per [facility] Documented by Selina Denson NP on behalf of: Saravanan Ahumada DO documented in this encounter [facility] 09-12-2024 History of Present illness Narrative Called and spoke with patient - she had the recommended pre-e labs done at [facility]. Patient had mild range BP then normal [...] triage near her. She will go to [facility]. I called and spoke with RN in triage - informed that patient had CMP and CBC already drawn, but that urine sample was not taken. Recommend BP monitoring and evaluation of pre-e labs. Contact stated they would inform Dr Ahumada upon arrival of patient to hospital. Rtuhann Miller PA-C 09/12/24 1608 documented in this encounter [facility] 09-12-2024 History of Present illness Narrative Maternal- [...] mouth in the morning., Disp: , Rfl: hx508-jzuz-xwhmu acid ( 19) 29 mg iron- 1 [...] more likely to fail compared to insulin. medical terminologist data on children whose mothers took oral [...] Delivery recommendations : - Recommend delivery at [id number] - Use 1/2 dose of insulin the [...] by e-mail to: or by fax to: [phone] Ruthann Miller PA-C Maternal- Medicine Office phone: [phone] Ruthann Miller PA-C 09/12/24 1211 Headache/epigastric pain/blurry [...] questions or concerns. documented in this encounter [facility] 09-11-2024 Instructions Mirta Gallagher MD - 09/11/2024 [...] pending, and I will contact you via Prevedere once the results are available. - Your [...] Please continue to follow up with your HEAD OF BIOLOGY and the diabetes care team for management. [...] your urine based on recent tests. Your HEAD OF BIOLOGY will likely repeat a urine test at your next visit in 4 weeks. - Your hemoglobin, hematocrit, and red blood cell count were low on recent testing. Please follow up with your HEAD OF BIOLOGY for further evaluation and management. Follow-Up Plan: - Please continue to follow up with your HEAD OF BIOLOGY for routine care and gestational diabetes management. - Once your plasma metanephrines results are available, I will contact you via Prevedere. - After your delivery, please message me to schedule imaging and blood work for follow-up on your SDHA mutation. If your blood work is normal, imaging can be deferred until 2025 or 2026. Wishing you a safe and healthy ! documented in this encounter [facility] 09-11-2024 Note HNO ID: [id number] Author: MIRTA GALLAGHER MD Service: ? Author Type: Physician Type: Progress Notes Filed: 09/11/2024 09:23 Note Text: DATE: 09/11/2024 VIRTUAL VISIT PROGRESS NOTE This is a virtual visit using Prevedere Zoom Video Visit. It required patient-provider interaction for the medical decision making as documented below. I have communicated my name and active licensure. The patient's identity and physical location were verified at the time of this visit. Either the patient or their legal b2b outside sales representative has been informed of the [...] She is under the care of her HEAD OF BIOLOGY in [place] for GDM management. Despite dietary modifications, she [...] Headaches: No Memory (more content not included)... [facility] 09-11-2024 History of Present illness Narrative DATE: 09/11/2024 VIRTUAL VISIT PROGRESS NOTE This is a virtual visit using Thalchemyom Video Visit. It required patient-provider interaction for the medical decision making as documented below. I have communicated my name and active licensure. The patient's identity and physical location were verified at the time of this visit. Either the patient or their legal b2b outside sales representative has been informed of the [...] She is under the care of her HEAD OF BIOLOGY in [place] for GDM management. Despite dietary modifications, she [...] under the care of a specialist in [place] and is no longer taking Metformin since [...] the specialist weekly. - Follow up with HEAD OF BIOLOGY for regular care and monitoring of GDM. TSH was 2.69 prior to conception but TPO Ab were negative. Mirta Gallagher MD, MPH Endocrinology documented in this encounter [facility] 09-05-2024 Miscellaneous Notes Called pt to [...] and not metformin. [facility] Telephone encounter Note Called pt to [...] will probably do insulin and not metformin. [facility] Note HNO ID: [id number] Author: МАРИЯ LABOY MD Service: ? Author Type: Physician Type: Progress Notes Filed: 09/19/2024 15:43 Note Text: History ID: 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 HPI: Patient returns for established visit. She denies any issues related to her head neck. Denies any dysphagia or odynophagia. She is 28 weeks . Previous plasma metanephrines and normetanephrine's tested in May were within normal limits. Furthermore, CT neck, chest, abdomen pelvis last year was normal. PHYSICAL EXAM (detailed): Constitutional: * LMP 02/13/2024 * General appearance: Well developed, well nourished [...] or notable assymetries. Moist mucus membranes present. * Larynx: Base of tongue, valleculae, epiglottis and false vocal folds are normal in appearance per mirror exam. Neck: * Neck: The neck appears symmetric without scars, and on palpation is without masses, lymphadenopathy or crepitus. Trachea is midline. * Thyroid: There are no masses, thyromegaly, thyroid nodules or tenderness on palpation. 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 She has presently and is following up with her OB for that. I will follow-up with her in 2 years with repeat imaging. She will follow-up with me sooner if there are any new developments. Imaging: No SIGNATURE: Мария Laboy MD PATIENT NAME: Lissa Rivas DATE: September 19, 2024 TIME: 3:28 PM [facility] 09-05-2024 History of Present illness Narrative History ID: 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 HPI: Patient returns for established visit. She denies any issues related to her head neck. Denies any dysphagia or odynophagia. She is 28 weeks . Previous plasma metanephrines and normetanephrine's tested in May were within normal limits. Furthermore, CT neck, chest, abdomen pelvis last year was normal. PHYSICAL EXAM (detailed): Constitutional: * LMP 02/13/2024 * General appearance: Well developed, well nourished [...] or notable assymetries. Moist mucus membranes present. * Larynx: Base of tongue, valleculae, epiglottis and false vocal folds are normal in appearance per mirror exam. Neck: * Neck: The neck appears symmetric without scars, and on palpation is without masses, lymphadenopathy or crepitus. Trachea is midline. * Thyroid: There are no masses, thyromegaly, thyroid nodules or tenderness on palpation. 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 She has presently and is following up with her OB for that. I will follow-up with her in 2 years with repeat imaging. She will follow-up with me sooner if there are any new developments. Imaging: No SIGNATURE: Мария Laboy MD PATIENT NAME: Lissa Rivas DATE: September 19, 2024 TIME: 3:28 PM documented in this encounter [facility] 08-31-2024 Group counseling note Patient: Lissa Rivas [...] day food log and blood glucoses to [email or web address] every Wednesday night/Wednesday morning. Please refer to health habits for other goals. Breakfast 10 AM 15-25 grams of CHO, Lunch 2 PM 45 grams of CHO, Snack 4:30 PM 15-30 grams of CHO, Dinner 7 PM 45 grams of CHO, HS Snack 8:30 PM 15-30 grams of CHO. Face to face time was 82 minutes. [facility] [place] [facility] Work Phone: 08-31-2024 Miscellaneous Notes Patient: Lissa [...] day food log and blood glucoses to [email or web address] every Wednesday night/Wednesday morning. Please refer to health habits for other goals. Breakfast 10 AM 15-25 grams of CHO, Lunch 2 PM 45 grams of CHO, Snack 4:30 PM 15-30 grams of CHO, Dinner 7 PM 45 grams of CHO, HS Snack 8:30 PM 15-30 grams of CHO. Face to face time was 82 minutes. documented in this encounter [facility] 08-30-2024 History of Present illness Narrative Reason [...] nursing note reviewed. Exam conducted with a parks and recreation manager present. Vitals: Estimated body mass index is [...] Saravanan Ahumada DO documented in this encounter [facility] 08-16-2024 History of Present illness Narrative Reason [...] nursing note reviewed. Exam conducted with a parks and recreation manager present. Vitals: Estimated body mass index is [...] of: FLACA Kovacs documented in this encounter [facility] 07-18-2024 History of Present illness Narrative Images from the original note were not included. Lissa Riavs is a 29 y.o. female presents with [...] the care of an infertility clinic at [facility], where fertility treatments were conducted for approximately one year before achieving natural conception. Her director of content marketing is based in [place]. Metformin, previously prescribed for polycystic ovary syndrome [...] since 04/2024. - No previous EKG performed; Prosonix monitor will be ordered -order echo. - If heart rate exceeds 120 beats per minute for an extended period, further investigation will be warranted. Patient was seen and examined with Jaime Davies CNP. History was confirmed and verified. Kelly elements of the exam were also completed. Assessment and plan were reviewed and addended as needed. Agree with documentation above. documented in this encounter [facility] 07-17-2024 History of Present illness Narrative [...] nursing note reviewed. Exam conducted with a parks and recreation manager present. Vitals: Estimated body mass index is [...] during travel. Patient was prescribed medication from dust operator and provider will reach out to patient [...] leaving that lotion that was prescribed by Agricultural Aircraft Pilot is safe to use, but not in large doses. PVU documented in this encounter [facility] 05-23-2024 History of Present illness Narrative Images from the original note were not included. Subjective Patient ID: Lissa Rivas is a 29 y.o. 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 She has tried dnly-ujo-wgigucx antifungal treatments without relief. Additionally she has [...] Past Medical History: Diagnosis Date Anxiety Asthma ([facility]) GERD (gastroesophageal reflux disease) HSV (herpes simplex [...] Laterality Date EYE SURGERY 03/2020 PRK- Sid Family History Family History Problem Relation Name [...] Andrew Ferrer DPM documented in this encounter [facility] 05-22-2024 History of Present illness Narrative [...] nursing note reviewed. Exam conducted with a parks and recreation manager present. Vitals: Estimated body mass index is [...] or undercooked meat, and stay away from [facility]. Patient has been consulted regarding any further [...] Saravanan Ahumada DO documented in this encounter [facility] 05-15-2024 History of Present illness Narrative [...] nursing note reviewed. Exam conducted with a parks and recreation manager present. Vitals: Estimated body mass index is [...] Rosemary Hooper MA documented in this encounter [facility] 04-21-2024 History of Present illness Narrative [...] or undercooked meat, and stay away from [facility]. Patient has also been advised to not [...] Rosemary Hooper MA documented in this encounter [facility] 2024 Note HNO ID: [id number] Author: ORTEGA MORRISSEY APRN.WEED THINNER Service: ? Author Type: Nurse Practitioner Type: [...] Ortega Morrissey APRN.CNP 2024 4:34 PM [facility] 2024 History of Present illness [...] 2024 4:34 PM documented in this encounter [facility] 03-27-2024 History of Present illness Narrative [...] drawn today. Appointments scheduled for OBUS in [place] office on 04/12 and with [facility] on 05/01. 03/27/2024 3:01 PM documented in this encounter [facility] 03-20-2024 Progress note Formatting of t [...] Hysteroscopy Laparoscopy OPK (Ovulation Predictor Kit) [facility] 10.91 High 01/04/2023 Saline Ultrasound Semen [...] visit. Either the patient or their legal b2b outside sales representative has been informed of the risks and benefits of -- and alternatives to -- treatment through a remote evaluation and consents to proceed with the evaluation remotely. I spent a total of 30 minutes on the date of the service which included preparing to see the patient, utsy-fb-ctjm patient care, counseling and educating the patient/family/caregiver, ordering medications, tests, or procedures, communicating results to the patient/family/caregiver, and care coordination (not separately reported). MD Kim Branch MD [facility] 03-20-2024 Consult note Formatting of th [...] Hysteroscopy Laparoscopy OPK (Ovulation Predictor Kit) [facility] 10.91 High 01/04/2023 Saline Ultrasound Semen [...] visit. Either the patient or their legal b2b outside sales representative has been informed of the risks and benefits of -- and alternatives to -- treatment through a remote evaluation and consents to proceed with the evaluation remotely. I spent a total of 30 minutes on the date of the service which included preparing to see the patient, nlyk-lc-rcgn patient care, counseling and educating the patient/family/caregiver, ordering medications, tests, or procedures, communicating results to the patient/family/caregiver, and care coordination (not separately reported). MD Kim Branch MD documented in this encounter [facility] 03-17-2024 Note HNO ID: [id number] Author: ORTEGA MORRISSEY APRN.WEED THINNER Service: ? Author Type: Nurse Practitioner Type: Progress Notes Filed: 03/17/2024 14:22 Note Text: [facility]FERT[facility] New SERVICE DATE: 03/17/2024 SERVICE TIME: 1:56 PM NAME: Lissa Rivas VIRTUAL VISIT PROGRESS NOTE This is a virtual visit. It required patient-provider interaction for the medical decision making as documented below. Patient name and birthday verified: Yes Location of patient: [place] Persons Present: patient I have communicated my name and active licensure. The patient's identity and physical location were verified at the time of this visit. Either the patient or their legal b2b outside sales representative has been informed of the [...] HCG 03/17 or 03/21 scan scheduled: 04/03, 1109 medications to discontinue: Metformin Schedule with OB: Scheduled with local OB Ortega Morrissey APRN.WEED THINNER March 17, 2024 1:56 PM I spent a total of 20 minutes on the date of the service which included preparing to see the patient, papr-bl-rpce patient care, completing clinical documentation, obtaining and/or [...] schedule the patient for the following- Location: [facility] Provider: Nurse Visit type: OB scan Reason for visit/appointment notes: OB scan Date: 04/03 Time (requested): 1110 If slot is full, please schedule the closest open slot. Call to patient needed: no [facility] 03-17-2024 History of Present illness Narrative Images from the original note were not included. [facility] New SERVICE DATE: 03/17/2024 SERVICE TIME: 1:56 PM NAME: Lissa Rivas VIRTUAL VISIT PROGRESS NOTE This is a virtual visit. It required patient-provider interaction for the medical decision making as documented below. Patient name and birthday verified: Yes Location of patient: [place] Persons Present: patient I have communicated my name and active licensure. The patient's identity and physical location were verified at the time of this visit. Either the patient or their legal b2b outside sales representative has been informed of the [...] which included preparing to see the patient, tyid-qr-chpk patient care, completing clinical documentation, obtaining and/or [...] schedule the patient for the following- Location: [facility] Provider: Nurse Visit type: OB scan Reason for visit/appointment notes: OB scan Date: 04/03 Time (requested): 1109 If slot is full, please schedule the closest open slot. Call to patient needed: no documented in this encounter [facility] 03-13-2024 Telephone encounter Note Patient calls [...] ordered: HCG x2 FYI Dr. Bill Morrissey APRN.WEED THINNER March 13, 2024 1:37 PM [facility] 03-13-2024 Miscellaneous Notes Patient calls with [...] ordered: HCG x2 FYI Dr[address] Bill Morrissey APRN.WEED THINNER March 13, 2024 1:37 PM Patient states she skipped this month and has +hpt, please follow up with patient. documented in this encounter [facility] 03-13-2024 Telephone encounter Note Patient states she skipped this month and has +hpt, please follow up with patient. [facility] Work Phone: 03-08-2024 History of Present [...] Use: Not At Risk (02/15/2024) Received from [facility] AUDIT-C Frequency of Alcohol Consumption: Never [...] and 96% in the left ear. Speech oil driller threshold is 10 dB in the right ear and 5 dB in the left ear. Procedure: [] Gabriel Blackwell DO documented in this encounter [facility] Work Phone: 02-28-2024 Telephone encounter Note Spoke [...] MORRISSEY APRN.CNP February 28, 2024 11:54 AM [facility] 02-28-2024 Miscellaneous Notes Spoke with Thao, [...] after she pays documented in this encounter [facility] 02-28-2024 Telephone encounter Note Pt is not financially clear yet should she still schedule it after she pays [facility] 02-23-2024 Note HNO ID: [id number] Author: ORTEGA MORRISSEY APRN.CNP Service: ? Author Type: Nurse Practitioner Type: Progress Notes Filed: 02/23/2024 13:56 Note Text: Lissa Rivas is here today for a midcycle scan. Lead follicle: 11 Plan: repeat scan 02/24 Ortega Morrissey APRN.CNP February 23, 2024 1:54 PM Please schedule the patient for the following- Location: [facility] Provider: Nurse Visit type: midcycle Reason for visit/appointment notes: midcycle Date: 02/24 Time (requested): 0730 If slot is full, please schedule the closest open slot. Call to patient needed: no [facility] 02-23-2024 Note HNO ID: [id number] Author: PAULA HESTER RN Service: ? Author [...] RN February 23, 2024 7:46 AM [facility] 02-23-2024 History of Present illness Narrative The patient is here today for follicular ultrasound and blood work. The patient reports no problems or complaints. Ultrasound and blood will be reviewed by the physician, the flow sheet will be updated and instructions will be communicated to the patient. Paula Hester RN February 23, 2024 7:46 AM documented in this encounter [facility] 02-21-2024 Telephone encounter Note Medication send the CS specialty on 02/17. Ortega Morrissey APRN.CNP February 21, 2024 10:39 AM [facility] 02-21-2024 Miscellaneous Notes Medication send the CS specialty on 02/17. Ortega Morrissey APRN.CNP February 21, 2024 10:39 AM [facility]eds [facility] documented in this encounter [facility] 02-21-2024 Telephone encounter Note Needs hcg [facility] 02-17-2024 Plan of care note Lissa [...] visit. Either the patient or their legal b2b outside sales representative has been informed of the risks and benefits of -- and alternatives to -- treatment through a remote evaluation and consents to proceed with the evaluation remotely. I spent a total of 30 minutes on the date of the service which included preparing to see the patient, kqll-ad-kiyf patient care, counseling and educating the patient/family/caregiver, ordering medications, tests, or procedures, communicating results to the patient/family/caregiver, and care coordination (not separately reported). Kim Khan MD [facility] 02-17-2024 Miscellaneous Notes Lissa Rivas is a 28 year old female with PCOS here for follow up. Plan: PCOS lab. Restart metformin. Bar Use hCG trigger instead of ovidrel due to possible side effects. Also, she might need hCG during IVF. Possible increase letrozole to 7.5 pending this IUI cycle. Follow up in Feb. This visit was conducted as a virtual visit via zoom. I have communicated my name and active licensure. The patient's identity and physical location were verified at the time of this visit. Either the patient or their legal b2b outside sales representative has been informed of the risks and benefits of -- and alternatives to -- treatment through a remote evaluation and consents to proceed with the evaluation remotely. I spent a total of 30 minutes on the date of the service which included preparing to see the patient, vkow-hz-kacg patient care, counseling and educating the patient/family/caregiver, ordering medications, tests, or procedures, communicating results to the patient/family/caregiver, and care coordination (not separately reported). Kim Khan MD documented in this encounter [facility] 02-15-2024 History of Present illness Narrative Images from the original note were not included. Robles Goldsmith, DO Obstetrics and Gynecology Lissa Rivas 1995 02/15/24 [id number] Yearly Wellness Exam Chief Complaint Patient presents [...] History: Procedure Laterality Date EYE SURGERY 03/2020 MICHAELCed Lau Past Medical History: Diagnosis Date Asthma [...] angle tenderness, no obvious scoliosis/kyphosis. 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 She works from home for [employer]. Entered by Adilene Ford MA acting as scribe for Dr. Robles Goldsmith. Signature Adilene Ford MA Date 02/15/24 . Time 3:12 PM . The documentation recorded by the scribe accurately reflects the service(s) I personally performed and the decisions I made. Signature Jordan Goldsmith D.O. Date 02/15/24 Time 5:00PM. documented in this encounter [facility] 02-15-2024 Telephone encounter Note Spoke with Thao, states she was using OPKs last cycle and never got an LH surge. Had two weeks of high fertility but no peak. Cycle was normal length LMP 02/12 Would like to do monitoring/trigger this cycle. Flowsheet/Episode updated. Ortega Morrissey APRN.CNP February 15, 2024 1:49 PM Please schedule the patient for the following- Location: [place] Provider: nurse Visit type: midcycle Reason for visit/appointment notes: midcycle Date: 02/22 Time (requested): 0700 If slot is full, please schedule the closest open slot. Call to patient needed: no [facility] 02-15-2024 Miscellaneous Notes Spoke with Thao, [...] up with patient. documented in this encounter [facility] 02-15-2024 Telephone encounter Note Patient states this past month in January she did not ovulate so she did not go through with iui, please follow up with patient. [facility] Work Phone: 01-14-2024 Telephone encounter Note Spoke with Lissa, She is planning to use OPK only this cycle. Jeferson call with LH surge. Ortega Morrissey APRN.CNP January 14, 2024 4:17 PM [facility] 01-14-2024 Miscellaneous Notes Spoke with Lissa, She is planning to use OPK only this cycle. Jeferosn call with LH surge. Ortega Morrissey APRN.CNP January 14, 2024 4:17 PM Pt started cycle 01/12 and would like to discuss plan for scheduling iui documented in this encounter [facility] 01-14-2024 Telephone encounter Note Pt started cycle 01/12 and would like to discuss plan for scheduling iui [facility] 12-31-2023 Note HNO ID: [id number] Author: ORTEGA MORRISSEY APRN.CNP Service: ? Author [...] Cycle Day: 20 Last menstrual period: 12/12/2023 [place] Protocol: UNIVERSAL PROTOCOL / SAFETY CHECKLIST Procedure [...] December 31, 2023 TIME: 10:25 AM [facility] 12-31-2023 Procedure note WHI GAYATHRI IUI PROCEDURE NOTE Date: 12/31/2023 Primary Proceduralist: Ortega Morrissey APRN.CNP Consents and Labels Consent Signed: Informed Consent obtained and on the chart Labels Verified With Patient: Yes Indications: Lissa Rivas, is a 28 year old female here today for intrauterine insemination. IUI # Series 1 Cycle 3. Cycle Day: 20 Last menstrual period: 12/12/2023 [place] Protocol: UNIVERSAL PROTOCOL / SAFETY CHECKLIST Procedure [...] DATE: December 31, 2023 TIME: 10:25 AM [facility] 12-31-2023 Procedure note WHI GAYATHRI IUI PROCEDURE NOTE Date: 12/31/2023 Primary Proceduralist: Ortega Morrissey APRN.CNP Consents and Labels Consent Signed: Informed Consent obtained and on the chart Labels Verified With Patient: Yes Indications: Lissa Rivas, is a 28 year old female here today for intrauterine insemination. IUI # Series 1 Cycle 3. Cycle Day: 20 Last menstrual period: 12/12/2023 [place] Protocol: UNIVERSAL PROTOCOL / SAFETY CHECKLIST Procedure [...] TIME: 10:25 AM documented in this encounter [facility] 12-31-2023 Nurse Note Gas Plumbing Inspector offered: Patient declines. [facility] 12-31-2023 Nurse Note Gas Plumbing Inspector offered: Patient declines. documented in this encounter [facility] 12-21-2023 History of Present illness Narrative pt using LH surge strips [facility] HOLLAND Grewal RN December 21, 2023 2:32 PM [...] plan provided to patient via a Fertility defence force member other ranks. Kim Khan MD documented in this encounter [facility] 12-21-2023 Note HNO ID: [id number] Author: ROBIN GREWAL RN Service: ? Author Type: Registered Nurse Type: Progress Notes Filed: 12/21/2023 14:32 Note Text: pt using LH surge strips and will call to [facility] IUI Robin Grewal RN December 21, 2023 2:32 PM [facility] 12-21-2023 Note HNO ID: [id number] Author: FEDE HAIRSTON MD Service: ? Author [...] plan provided to patient via a Fertility defence force member other ranks. Kim Khan MD [facility] 12-13-2023 Telephone encounter Note LMP 12/11 Plan: Let 5mg, trigger, IUI#2 Flowsheet/episode created Ortega Morrissey APRN.WEED THINNER December 13, 2023 4:42 PM Please schedule the patient for the following- Location: [place] Provider: Nurse Visit type: Midcycle Reason for visit/appointment notes: Midcycle Date: 12/20 Time (requested): 730 If slot is full, please schedule the closest open slot. Call to patient needed: no [facility] 12-13-2023 Miscellaneous Notes LMP 12/11 Plan: Let 5mg, trigger, IUI#2 Flowsheet/episode created Ortega Morrissey APRN.CNP December 13, 2023 4:42 PM Please schedule the patient for the following- Location: [place] Provider: Nurse Visit type: Midcycle Reason for visit/appointment notes: Midcycle Date: 12/20 Time (requested): 730 If slot is full, please schedule the closest open slot. Call to patient needed: no documented in this encounter [facility] 11-28-2023 Note HNO ID: [id number] Author: EVANGELINA PAINTER, ? Service: ? Author Type: Digital Publishing Specialist Type: Progress Notes Filed: 11/28/2023 11:00 Note Text: IUI Pre: 72 M/ml, 63% Post: 73 M/ml, 88% Insem # 44.8 million [facility] 11-28-2023 History of Present illness Narrative IUI Pre: 72 M/ml, 63% Post: 73 M/ml, 88% Insem # 44.8 million IUI specimen released to provider Evangelina Painter November 28, 2023 10:48 AM documented in this encounter [facility] 11-28-2023 Note HNO ID: [id number] Author: DESHAWN RIOJAS MD Service: ? Author [...] Cycle Day: 13 Last menstrual period: 11/12/2023 [place] Protocol: UNIVERSAL PROTOCOL / SAFETY CHECKLIST Procedure [...] November 28, 2023 TIME: 10:52 AM [facility] 11-28-2023 Procedure note WHI GAYATHRI IUI PROCEDURE NOTE Date: 11/28/2023 Primary Proceduralist: Deshawn Riojas MD, Sandra Cruz MD Consents and Labels Consent Signed: Informed Consent obtained and on the chart Labels Verified With Patient: Yes Indications: Lissa Rivas, is a 28 year old female here today for intrauterine insemination. IUI # . Cycle Day: 13 Last menstrual period: 11/12/2023 [place] Protocol: UNIVERSAL PROTOCOL / SAFETY CHECKLIST Procedure [...] DATE: November 28, 2023 TIME: 10:52 AM [facility] 11-28-2023 Procedure note WHI GAYATHRI IUI PROCEDURE NOTE Date: 11/28/2023 Primary Proceduralist: Deshawn Riojas MD, Sandra Cruz MD Consents and Labels Consent Signed: Informed Consent obtained and on the chart Labels Verified With Patient: Yes Indications: Lissa Rivas, is a 28 year old female here today for intrauterine insemination. IUI # . Cycle Day: 13 Last menstrual period: 11/12/2023 [place] Protocol: UNIVERSAL PROTOCOL / SAFETY CHECKLIST Procedure [...] TIME: 10:52 AM documented in this encounter [facility] 11-28-2023 Note HNO ID: [id number] Author: EVANGELINA PAINTER, ? Service: ? Author Type: Digital Publishing Specialist Type: Progress Notes Filed: 11/28/2023 10:54 Note Text: IUI specimen released to provider Evangelina Painter November 28, 2023 10:48 AM [facility] 11-22-2023 Note HNO ID: [id number] Author: ORTEGA MORRISSEY APRN.JORDAN Service: ? Author [...] and birthday verified: Yes Location of patient: [place] Persons Present: patient I have communicated my name and active licensure. The patient's identity and physical location were verified at the time of this visit. Either the patient or their legal b2b outside sales representative has been informed of the [...] Once starting progesterone had intense mood swings/irritability [place] heart was beating slower than normal but [...] will schedule IUI as instructed Ortega Morrissey APRN.WEED THINNER November 22, 2023 2:33 PM I spent a total of 20 minutes on the date of the service which included preparing to see the patient, elbv-yx-[id number] patient care, completing clinical documentation, obtaining and/or [...] and typographical errors missed in proofreading. [facility] 11-22-2023 History of Present illness [...] and birthday verified: Yes Location of patient: [place] Persons Present: patient I have communicated my name and active licensure. The patient's identity and physical location were verified at the time of this visit. Either the patient or their legal b2b outside sales representative has been informed of the [...] Once starting progesterone had intense mood swings/irritability [place] heart was beating slower than normal but [...] will schedule IUI as instructed Ortega Morrissey APRN.WEED THINNER November 22, 2023 2:33 PM I spent a total of 20 minutes on the date of the service which included preparing to see the patient, urgy-lv-dgjo patient care, completing clinical documentation, obtaining and/or [...] missed in proofreading. documented in this encounter [facility] 11-22-2023 Note HNO ID: [id number] Author: ERMA DONIS RN Service: ? Author [...] called patient. She will drive back to [employer] now to get done. Erma Donis RN November 22, 2023 8:45 AM 11/22/2023 11 trigger 25+<10mm 21.2, 25+<10mm 5.6mm tri p4=0.3 lh=5.1 JR 11/23/2023 12 11/24/2023 13 IUI RN called patient, name and verified. Plan given for midcycle per physician, see flowsheet for details. [employer] message sent. Medications reviewed and verified, instructions given. Patient denies any questions or concerns. Erma Donis RN November 22, 2023 12:53 PM [facility] 11-22-2023 History of Present illness Narrative Lissa Rivas is here today for a midcycle scan. Lead follicle: 21mm vs CL Erma Donis RN November 22, 2023 8:44 AM Message sent to Dr. Howard to see if patient needs labs based on scan. Erma Donis RN November 22, 2023 8:09 AM Labs ordered and called patient. She will drive back to [facility] [facility] now to get done. Erma Donis RN November 22, 2023 8:45 AM 11/22/2023 11 trigger 25+<10mm 21.2, 25+<10mm 5.6mm tri p4=0.3 lh=5.1 JR 11/23/2023 12 11/24/2023 13 IUI RN called patient, name and verified. Plan given for midcycle per physician, see flowsheet for details. [employer] message sent. Medications reviewed and verified, instructions given. Patient denies any questions or concerns. Erma Donis RN November 22, 2023 12:53 PM documented in this encounter [facility] 11-15-2023 Telephone encounter Note Plan: Let 5mg/trigger/IUI #2 Ortega Morrissey APRN.CNP November 15, 2023 9:39 AM Please schedule the patient for the following- Location: [place] Provider: Nurse Visit type: Follicular scan Reason for visit/appointment notes: Follicular scan Date: 11/21 Time (requested): 0715 If slot is full, please schedule the closest open slot. Call to patient needed: no [facility] 11-15-2023 Miscellaneous Notes Plan: Let 5mg/trigger/IUI #2 Ortega Morrissey APRN.CNP November 15, 2023 9:39 AM Please schedule the patient for the following- Location: [place] Provider: Nurse Visit type: Follicular scan Reason for visit/appointment notes: Follicular scan Date: 11/21 Time (requested): 0715 If slot is full, please schedule the closest open slot. Call to patient needed: no Patient is planning IUI. FYI: [employer]. Please see the nba Orta PA-C November 12, 2023 6:07 PM Pt had iui 10/25 , pt had negative preg 8/13 or 8/14 , pt started cycle 11/11 documented in this encounter [facility] 11-12-2023 Telephone encounter Note Patient is planning IUI. FYI: [employer]. Please see the checklist Madeleine Orta PA-C November 12, 2023 6:07 PM [facility] Work Phone: 11-12-2023 Telephone encounter Note Pt had iui 10/25 , pt had negative preg 8/13 or 8/14 , pt started cycle 11/11 [facility] 10-26-2023 Telephone encounter Note This patient [...] seven days of my reply. See the [employer] message reply for my assessment and plan. I spent a total of 5 minutes reviewing the patient's prior medical records and current request for medical advice, prescribing medications or ordering tests (if applicable), replying to the patient, and documenting the encounter. [facility] 10-26-2023 Miscellaneous Notes This patient gave [...] seven days of my reply. See the [employer] message reply for my assessment and plan. I spent a total of 5 minutes reviewing the patient's prior medical records and current request for medical advice, prescribing medications or ordering tests (if applicable), replying to the patient, and documenting the encounter. documented in this encounter [facility] 10-26-2023 Note HNO ID: [id number] Author: ORTEGA MORRISSEY APRN.CNP Service: ? Author [...] Cycle Day: 15 Last menstrual period: 10/12/2023 [place] Protocol: UNIVERSAL PROTOCOL / SAFETY CHECKLIST Procedure [...] October 26, 2023 TIME: 11:36 AM [facility] 10-26-2023 Procedure note WHI GAYATHRI IUI PROCEDURE NOTE Date: 10/26/2023 Primary Proceduralist: Ortega Morrissey APRN.CNP Consents and Labels Consent Signed: Informed Consent obtained and on the chart Labels Verified With Patient: Yes Indications: Lissa Rivas, is a 28 year old female here today for intrauterine insemination. IUI # Series 1 Cycle 1. Cycle Day: 15 Last menstrual period: 10/12/2023 [place] Protocol: UNIVERSAL PROTOCOL / SAFETY CHECKLIST Procedure [...] DATE: October 26, 2023 TIME: 11:36 AM [facility] 10-26-2023 Procedure note WHI GAYATHRI IUI PROCEDURE NOTE Date: 10/26/2023 Primary Proceduralist: Ortega Morrissey APRN.CNP Consents and Labels Consent Signed: Informed Consent obtained and on the chart Labels Verified With Patient: Yes Indications: Lissa Rivas, is a 28 year old female here today for intrauterine insemination. IUI # Series 1 Cycle 1. Cycle Day: 15 Last menstrual period: 10/12/2023 [place] Protocol: UNIVERSAL PROTOCOL / SAFETY CHECKLIST Procedure [...] TIME: 11:36 AM documented in this encounter [facility] 10-22-2023 Note HNO ID: [id number] Author: AYANNA TREVIZO MD Service: ? Author Type: Physician Type: Progress Notes Filed: 10/22/2023 23:02 Note Text: GAYATHRI Attending Physician Note: Ultrasound and lab results reviewed. Based on review of ultrasound and lab results, medication dose and follow up date plans provided. See cycle flowsheet for dosing details. Ayanna Trevizo MD, FLACO [facility] 10-22-2023 Note HNO ID: [id number] Author: ERMA DONIS RN Service: ? Author Type: Registered Nurse Type: Progress Notes Filed: 10/22/2023 13:41 Note Text: Lissa Rivas is here today for a midcycle scan. Lead follicle: Justine Donis RN October 22, 2023 7:25 AM RN called patient, name and verified. Plan given for midcycle per physician, see flowsheet for details. [employer] message sent. Medications reviewed and verified, instructions given. Patient denies any questions or concerns. Erma Donis RN October 22, 2023 1:38 PM [facility] 10-22-2023 History of Present illness Narrative Lissa Rivas is here today for a midcycle scan. Lead follicle: 14 Erma Donis RN October 22, 2023 7:25 AM RN called patient, name and verified. Plan given for midcycle per physician, see flowsheet for details. [employer] message sent. Medications reviewed and verified, instructions given. Patient denies any questions or concerns. Erma Donis RN October 22, 2023 1:38 PM documented in this encounter [facility] 10-20-2023 Telephone encounter Note patient instructed to order trigger now so that she has it by Wednesday Ani Stovall APRN.CNP October 20, 2023 3:10 PM [facility] 10-20-2023 Miscellaneous Notes patient instructed to order trigger now so that she has it by Wednesday Ani Stovall APRN.CNP October 20, 2023 3:10 PM Pts pharmacy called and would like to know when she needs to order trigger shot documented in this encounter [facility] 10-20-2023 Telephone encounter Note Pts pharmacy called and would like to know when she needs to order trigger shot [facility] 10-12-2023 Telephone encounter Note The following approved medication requests have been transmitted electronically. Requested Prescriptions Signed Prescriptions Disp Refills Choriogonadotropin Pam,HumRec (OVIDREL) 250 mcg/0.5 mL syrg 0.5 mL 1 Sig: Inject 250 mcg subcutaneously one time only for 1 dose. Authorizing Provider: ORTEGA MORRISSEY APRN.CNP October 12, 2023 4:10 PM [facility] 10-12-2023 Miscellaneous Notes The following approved medication requests have been transmitted electronically. Requested Prescriptions Signed Prescriptions Disp Refills Choriogonadotropin Pam,HumRec (OVIDREL) 250 mcg/0.5 mL syrg 0.5 mL 1 Sig: Inject 250 mcg subcutaneously one time only for 1 dose. Authorizing Provider: ORTEGA MORRISSYE APRN.CNP October 12, 2023 4:10 PM Called [...] Please call patient. documented in this encounter [facility] 10-12-2023 Telephone encounter Note Called the [...] open slot. Call to patient needed: no T [facility] 10-12-2023 Telephone encounter Note Patient states she also needs information regarding trigger shot. Please call patient. [facility] Work Phone: 09-10-2023 History of Present illness Narrative Images from the original note were not included. [facility] IUI TEACH SERVICE DATE: 09/10/2023 SERVICE TIME: 2:56 PM NAME: Lissa Rivas VIRTUAL VISIT PROGRESS NOTE This is a virtual visit. It required patient-provider interaction for the medical decision making as documented below. Patient name and birthday verified: Yes Location of patient: [place] Persons Present: patient I have communicated my name and active licensure. The patient's identity and physical location were verified at the time of this visit. Either the patient or their legal b2b outside sales representative has been informed of the risks and benefits of -- and alternatives to -- treatment through a remote evaluation and consents to proceed with the evaluation remotely. 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 Khan IUI Treatment Plan: Letrozole 5mg/trigger/IUI Partner's name/MRN: Brenton [id number] LMP: 07/23 IUI Checklist: Consultation: Done Registration of patient and partner: Done Financial Clearance: In process IUI Patient Education: ASRM IUI Patient Fact Sheet IUI Consent Form: sent today via [employer] Orders: filed today Medications ordered today Screening [...] Count Sperm M 592.20 % Motile Sperm (%[place] + %[employer]GE[employer]) >=40 % 64 Forward Progression 4 = [...] which included preparing to see the patient, ifys-ox-eyxl patient care, completing clinical documentation, obtaining and/or [...] missed in proofreading. documented in this encounter [facility] 09-09-2023 Telephone encounter Note The following approved medication requests have been transmitted electronically. Requested Prescriptions Signed Prescriptions Disp Refills medroxyPROGESTERone (PROVERA) 10 mg tablet 10 tablet 0 Sig: Take 1 tablet by mouth once daily. Authorizing Provider: ORTEGA MORRISSEY APRN.CNM September 09, 2023 9:07 AM [facility] 09-09-2023 Miscellaneous Notes The following approved [...] her lab results documented in this encounter [facility] 09-09-2023 Telephone encounter Note Called the [...] 0.2 hCG Quantitative, Blood <5.0 mIU/mL <0.6 [facility] 09-08-2023 Telephone encounter Note Iui Patient called in regards to her lab results [facility] 09-02-2023 Telephone encounter Note Returned patient [...] Mcclellan RN September 02, 2023 1:11 PM [facility] 09-02-2023 Miscellaneous Notes Returned patient call [...] up with patient. documented in this encounter [facility] 09-02-2023 Telephone encounter Note Returned patient [...] Mcclellan RN September 02, 2023 11:41 AM T [facility] 09-02-2023 Telephone encounter Note Please follow up with patient. T [facility] Work Phone: 08-19-2023 Progress note Formatting of t his note is different from the original. [facility] Date: 08/19/2023 Consultation Requested By: [...] Hysteroscopy Laparoscopy OPK (Ovulation Predictor Kit) [facility] 10.91 High 01/04/2023 Saline Ultrasound Semen [...] visit. Either the patient or their legal b2b outside sales representative has been informed of the risks and benefits of -- and alternatives to -- treatment through a remote evaluation and consents to proceed with the evaluation remotely. I spent a total of 30 minutes on the date of the service which included preparing to see the patient, [id number]-[id number] patient care, completing clinical documentation, counseling and educating the patient/family/caregiver, ordering medications, tests, or procedures, communicating results to the patient/family/caregiver, and care coordination (not separately reported). Kim Khan MD [facility] 08-19-2023 Consult note Formatting of th is note is different from the original. [facility] Date: 08/19/2023 Consultation Requested By: [...] used ocp since teenager. Was seen med zohaib for PCOS and placed on metformin. She [...] Hysteroscopy Laparoscopy OPK (Ovulation Predictor Kit) [facility] 10.91 High 01/04/2023 Saline Ultrasound Semen [...] visit. Either the patient or their legal b2b outside sales representative has been informed of the risks and benefits of -- and alternatives to -- treatment through a remote evaluation and consents to proceed with the evaluation remotely. I spent a total of 30 minutes on the date of the service which included preparing to see the patient, [id number]-ns-wlrb patient care, completing clinical documentation, counseling and educating the patient/family/caregiver, ordering medications, tests, or procedures, communicating results to the patient/family/caregiver, and care coordination (not separately reported). Kim Khan MD documented in this encounter [facility] 08-19-2023 Plan of care note Patient [...] daily Comments: None Kim Khan MD 08/19/2023 [facility] 08-19-2023 Miscellaneous Notes Patient indicated that [...] Khan MD 08/19/2023 documented in this encounter [facility] 08-17-2023 History of Present illness Narrative [...] while trying for , [facility]. Her genetic testing indicates she has [...] Laterality Date EYE SURGERY HX 03/2020 PRK-Sid Social History Tobacco Use Smoking status: Never [...] while trying for , who [facility]. Her genetic testing indicates she has [...] Мария Laboy MD documented in this encounter [facility] 08-17-2023 Nurse Note Tobacco Use: Never Was smoking cessation packet given? N/A - Patient is a non-smoker or quit >1 year ago. Was a referral initiated?N/A Patient is a non-smoker [facility] 08-17-2023 Nurse Note Tobacco Use: Never Was smoking cessation packet given? N/A - Patient is a non-smoker or quit >1 year ago. Was a referral initiated?N/A Patient is a non-smoker documented in this encounter [facility] 08-17-2023 History of Present illness Narrative [...] MD, MPH Endocrinology documented in this encounter [facility] 08-17-2023 Instructions Latosha Wesley MA - 08/17/2023 9:53 AM EDT Thank you for choosing the [facility] Department of Endocrinology, Diabetes and Metabolism. Did you know that you need to call 48 hours in advance of your scheduled visit, if you are unable to make your appointment? The Endocrinology and Metabolism [place] thanks you for your commitment, because patients not showing to their appointment results in a lost opportunity for patients to receive [facility] at the [facility]. To Cancel an appointment, please choose one of the following: - Call the Appointment Call Center at [phone] - From [facility], Go to Appointments - Cancel Appts If cancelling, consider your need to reschedule to prevent further delays in your care. To Schedule an appointment, please choose one of the following: - Call the Appointment Call Center at [phone] - From [facility], Go to Appointments - Request an Appt documented in this encounter [facility] 07-29-2023 History of Present illness Narrative [...] PATIENT PRESENTS WITH AN IMPLANTABLE OR ATTACHED CLEANING VALIDATION CONSULTANT: No RADIOLOGY DEPARTMENT: General X-ray: Exam(s) Completed: HSG PERIPHERAL IV DATA: Not applicable SIGNED BY: RT Clark(R) July 29, 2023 1:58 PM documented in this encounter [facility] 07-29-2023 Note HNO ID: [id number] Author: FLIP NEWMAN RT(Loc) Service: Radiology Author [...] PATIENT PRESENTS WITH AN IMPLANTABLE OR ATTACHED CLEANING VALIDATION CONSULTANT: No RADIOLOGY DEPARTMENT: General X-ray: Exam(s) Completed: HSG PERIPHERAL IV DATA: Not applicable SIGNED BY: RT Clark(R) July 29, 2023 1:58 PM [facility] 07-29-2023 Note HNO ID: [id number] Author: ORTEGA MORRISSEY APRN.CN Service: ? Author [...] without evidence of loculation. Ortega Morrissey APRN.CNM [facility] 07-29-2023 Procedure note KAREN TRINH HYSTEROSALPINGOGRAM [...] without evidence of loculation. Ortega Morrissey APRN.CNM [facility] 07-29-2023 Procedure note KAREN TRINH HYSTEROSALPINGOGRAM [...] Ortega Morrissey APRN.CNM documented in this encounter [facility] 06-16-2023 Miscellaneous Notes Addended by: МАРИЯ [...] Мария Laboy. Patient will be updated via [employer] when orders are placed for imaging. Fina Davalos MS, [facility] Licensed, Certified Genetic Counselor documented in this encounter [facility] 06-14-2023 Telephone encounter Note Patient had [...] to try for children. Elsa Puentes MS, [facility] Licensed, Certified Genetic Counselor [facility] Work Phone: 06-14-2023 Miscellaneous Notes Patient [...] to try for children. Elsa Puentes MS, [facility] Licensed, Certified Genetic Counselor Patient name and was confirmed at initiation of discussion. Lissa Rivas's Integrated BRACAnalysis with Markjuliane through [employer] was positive for a pathogenic variant in [...] population without disease (benign polymorphism). Please see [employer] message for further discussion. CHRISTIE Magdaleno Licensed, Certified Genetic Counselor documented in this encounter [facility] 06-10-2023 Telephone encounter Note Patient name and was confirmed at initiation of discussion. Lissa Rivas's Integrated BRACAnalysis with Humberto through [employer] was positive for a pathogenic variant in [...] population without disease (benign polymorphism). Please see [employer] message for further discussion. CHRISTIE Magdaleno Licensed, Certified Genetic Counselor [facility] 05-25-2023 Miscellaneous Notes The following approved [...] May 25, 2023 10:06 AM Valentin in [place] is pharmacy. Please follow up with patient. documented in this encounter [facility] 05-17-2023 Miscellaneous Notes Spoke to Thao [...] detect the familial mutation. 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 The patient was offered SDHA single site mutation analysis through [employer] or self pay Integrated BRACAnalysis with [employer] and SDHA single site mutation analysis through [employer]. After considering the risks, benefits, and limitations, the patient chose to pursue and provided informed consent for the following testing: SELF PAY Integrated BRACAnalysis with [employer] and SDHA single site mutation analysis through [employer]. The [facility]Risk panel includes APC, MICHAEL, AXIN2, [...] to the presenting phenotype. We discussed that [facility] may contact the patient by text or phone call regarding billing. The patient should watch for this communication and respond promptly. The patient should contact [employer] directly with any billing questions (ph. [phone]). Elsa Puentes MS, [facility] Licensed, Certified Genetic Counselor Called patient to [...] NTHL1, PALB2, PDGFRA, PMS2, POLD1, POLE, POT1, ILGCX3I, PTCH1, PTEN, RAD51C, RAD51D, RB1, RET, SDHA, SDHAF2, SDHB, SDHC, SDHD, SMAD4, SMARCA4, SMARCB1, SMARCE1, STK11, SUFU, QUGQ320, TP53, TSC1, TSC2, and VHL The Multi-Cancer panel looks at genes associated with cancers of the breast, gynecologic tract (ovarian, uterine/endometrial), gastrointestinal system (colorectal, gastric, pancreatic), endocrine glands (thyroid, parathyroid, pituitary, adrenal glands), genitourinary tract (renal/urinary tract, prostate), skin (melanoma, basal cell carcinoma), and brain/nervous system. AM CHECKING WITH [employer] [facility] ABOUT VARIANT BEFORE PROCEEDING, WILL CONTACT PATIENT WHEN READY TO MOVE FORWARD. Elsa Puentes MS, [facility] Licensed, Certified Genetic Counselor documented in this encounter [facility] 04-21-2023 Note HNO ID: [id number] Author: ELSA PUENTES LGC Service: ? Author Type: Genetic Counselor Type: Progress Notes Filed: 05/18/2023 16:44 Note Text: [facility] Consultation Note Genetic Counselor: Elsa Puentes MS, [facility] Patient: Lissa Rivas Patient Name and confirmed at initiation of visit. The patient provided consent for a virtual visit by [employer]. I have communicated my name and active licensure. The patient's identity and physical location were verified at the time of this visit. Either the patient or their legal b2b outside sales representative has been informed of the [...] , descent and paternal ancestors are of Indonesian descent. There is no Ashkenazi Orthodox ancestry. There is no known consanguinity. A [...] We also revi (more content not included)... [facility] 04-21-2023 History of Present illness Narrative Images from the original note were not included. [facility] Consultation Note Genetic Counselor: Elsa Puentes MS, [facility] Patient: Lissa Rivas Patient Name and confirmed at initiation of visit. The patient provided consent for a virtual visit by [employer]. I have communicated my name and active licensure. The patient's identity and physical location were verified at the time of this visit. Either the patient or their legal b2b outside sales representative has been informed of the [...] , descent and paternal ancestors are of Indonesian descent. There is no Ashkenazi Orthodox ancestry. There is no known consanguinity. A [...] extend to insurances such as life insurance, halfway care, or disability. The patient was seen for a total of 30 minutes, greater than 50% of which was spent nfpm-ex-nltr counseling. This plan is being carried out under the oversight of Dr. Annamarie Joe. This note will also be sent to the referring provider via the electronic medical record. Elsa Puentes MS, [facility] CC: Dr. Fede Joe documented in this encounter [facility] 04-18-2023 Miscellaneous Notes Lissa Rivas is [...] Kim Khan MD documented in this encounter [facility] 04-07-2023 Consult note Formatting of th [...] Hysteroscopy Laparoscopy OPK (Ovulation Predictor Kit) [facility] 10.91 High 01/04/2023 Saline Ultrasound Semen [...] which included preparing to see the patient, bkzk-xb-mzoy patient care, counseling and educating the patient/family/caregiver, and ordering medications, tests, or procedures. I have communicated my name and active licensure. The patient's identity and physical location were verified at the time of this visit. Either the patient or their legal b2b outside sales representative has been informed of the risks and benefits of -- and alternatives to -- treatment through a remote evaluation and consents to proceed with the evaluation remotely. Kim Khan MD documented in this encounter [facility] 02-08-2023 History of Present illness Narrative Patient is here for ultrasound. Please see image section in Epic for results. Kim Khan MD documented in this encounter [facility] 02-04-2023 Miscellaneous Notes 21 day progesterone level ordered. Ortega Morrissey APRN.CNP February 04, 2023 2:12 PM Pt states she has started her letrozole today documented in this encounter [facility] 06-26-2022 Evaluation note Encounter Date Diagnosis [...] May, Other Puncture wound material was printed [facility] Other 01-01-2021 History general Narrative - Reported* Type Description Date Medical History asthma Surgical History laser eye surgery, bilateral Hospitalization History Rash, age 5 [facility] Other [facility]* Diagnosis Encounter for fertility testing- Primary Fertility testing [facility] Diagnosis Secondary amenorrhea Absence of menstruation PCOS (polycystic ovarian syndrome) Polycystic ovaries [facility] Diagnosis PCOS (polycystic ovarian syndrome)- Primary Polycystic ovaries Fertility testing [facility] Diagnosis Family history of cancer- Primary Family history of unspecified malignant neoplasm Family history of gene mutation [facility] Diagnosis Family history of breast cancer- Primary Family history of malignant neoplasm of breast Family history of prostate cancer Family history of malignant neoplasm of prostate [facility] Diagnosis Procreative management- Primary Unspecified procreative management [facility] Diagnosis Monoallelic mutation of SDHA gene- Primary Localized enlarged lymph nodes Enlargement of lymph nodes Intra-abdominal and pelvic swelling, mass and lump, unspecified site [facility] Diagnosis Encounter for fertility testing- Primary Fertility testing Pre-procedure lab exam Pre-procedural laboratory examination [facility] Diagnosis Fertility testing [facility] Diagnosis Monoallelic mutation of SDHA gene- Primary Obesity, Class III, BMI 40-49.9 (morbid obesity) (HCC) Morbid obesity [facility] Diagnosis Irregular menstrual cycle- Primary PCOS (polycystic ovarian syndrome) Polycystic ovaries [facility] Diagnosis Monoallelic mutation of SDHA gene- Primary [facility] Diagnosis Secondary amenorrhea- Primary Absence of menstruation [facility] Diagnosis Secondary amenorrhea- Primary Absence of menstruation [facility] Diagnosis Screen for sexually transmitted diseases- Primary Screening examination for venereal disease Secondary amenorrhea Absence of menstruation Female infertility Female infertility of unspecified origin [facility] Diagnosis Procreation management investigation and testing- Primary Other investigation and testing for procreative management [facility] Diagnosis Treatment plan provided- Primary documented in this encounter [facility] note* Diagnosis Female infertility Female infertility of unspecified origin documented in this encounter [facility] note* Diagnosis Encounter for artificial insemination- Primary Artificial insemination documented in this encounter [facility] note* Diagnosis Procreation management investigation and testing- Primary Other investigation and testing for procreative management documented in this encounter [facility] note* Diagnosis Procreation management investigation and testing- Primary Other investigation and testing for procreative management Female infertility Female infertility of unspecified origin documented in this encounter [facility] note* Diagnosis Procreation management investigation and testing- Primary Other investigation and testing for procreative management documented in this encounter [facility] note* Diagnosis Procreation management investigation and testing- Primary Other investigation and testing for procreative management documented in this encounter [facility] note* Diagnosis Female infertility Female infertility of unspecified origin documented in this encounter [facility] note* Diagnosis Procreation management investigation and testing- Primary Other investigation and testing for procreative management documented in this encounter [facility] note* Diagnosis Female infertility- Primary Female infertility of unspecified origin documented in this encounter [facility] note* Diagnosis Female infertility- Primary Female infertility of unspecified origin documented in this encounter [facility] note* Diagnosis Encounter for artificial insemination- Primary Artificial insemination documented in this encounter [facility] note* Diagnosis Procreation management investigation and testing- Primary Other investigation and testing for procreative management documented in this encounter [facility] note* Diagnosis Female infertility- Primary Female infertility of unspecified origin documented in this encounter [facility] note* Diagnosis Encounter for gynecological examination without abnormal finding- Primary Screening for malignant neoplasm of cervix Screening for malignant neoplasm of the cervix Desire for BV (bacterial vaginosis) Unspecified vaginitis and vulvovaginitis documented in this encounter [facility] note* Diagnosis Procreation management investigation and testing- Primary Other investigation and testing for procreative management documented in this encounter [facility] note* Diagnosis Female infertility Female infertility of unspecified origin documented in this encounter [facility] note* Diagnosis Female infertility- Primary Female infertility of unspecified origin documented in this encounter [facility] note* Diagnosis Otalgia of both ears- Primary Temporomandibular joint disorder Unspecified temporomandibular joint disorders Chronic allergic rhinitis Postnasal drip documented in this encounter [facility] Work Phone: Evaluation note* Diagnosis Supervision of with history of infertility, first trimester- Primary examination or test, unconfirmed [facility] Diagnosis Encounter for test, result positive- Primary examination or test, positive result [facility]* Diagnosis Supervision of with history of infertility, first trimester- Primary [facility] Diagnosis PCOS (polycystic ovarian syndrome)- Primary Polycystic ovaries [facility]* Diagnosis Encounter for supervision of normal first in first trimester Encounter for drug screening documented in this encounter [facility]* Diagnosis Supervision of with history of infertility, first trimester [facility] Diagnosis Procreation management investigation and testing- Primary Other investigation and testing for procreative management [facility]* Diagnosis Missed menses , unspecified gestational [...] SDHA gene- Primary [facility]* Diagnosis Diabetes mellitus screening Screening [...] [facility] noteNo assessment information availableMount [facility] Work Phone: Evaluation note* Diagnosis Gestational diabetes mellitus (GDM) in third trimester, gestational diabetes method of control unspecified- Primary [facility] Diagnosis Monoallelic mutation of SDHA gene- Primary Gestational diabetes mellitus (GDM) in third trimester, gestational diabetes method of control unspecified (HCC) [facility] Diagnosis 28 weeks gestation of Third trimester state, incidental Gestational diabetes mellitus (GDM), antepartum, gestational diabetes method of control unspecified Herpes simplex virus type 1 (HSV-1) dermatitis documented in this encounter [facility]* Diagnosis Insulin controlled gestational diabetes mellitus (GDM) in third trimester Abnormal liver enzymes Abnormal genetic test Gestational diabetes requiring insulin Abnormal maternal glucose tolerance, complicating , childbirth, or the puerperium, unspecified as to episode of care Elevated blood pressure affecting , antepartum [facility]* Diagnosis History of gestational diabetes- Primary Personal history of other genital system and obstetric disorders Third trimester (HHS-HCC) state, incidental 31 weeks gestation of (HHS-HCC) documented in this encounter [facility]* Diagnosis Gestational diabetes requiring insulin Abnormal maternal glucose tolerance, complicating , childbirth, or the puerperium, unspecified as to episode of care Elevated blood pressure affecting , antepartum Insulin controlled gestational diabetes mellitus (GDM) in third trimester Abnormal liver enzymes documented [facility]* Diagnosis Insulin controlled gestational diabetes mellitus (GDM) in third trimester- Primary Gestational diabetes requiring insulin Abnormal maternal glucose tolerance, complicating , childbirth, or the puerperium, unspecified as to episode of care [facility]* Diagnosis Third trimester (HHS-HCC) state, incidental Insulin controlled gestational diabetes mellitus (GDM) during , antepartum (HHS-HCC) 32 weeks gestation of (HHS-HCC) documented in this encounter [facility] HealthcareInstructionsNot on filedocumented in this encounterProDch [facility] Health SystemInstructionsNot on filedocumented in this encounterProDch [facility] Health SystemInstructionsNot on filedocumented in this encounterProDch [facility] Health SystemInstructionsNot on filedocumented in this encounterProMedinv Health System InstructionsNot on filedocumented in this encounterProMedinv Health System InstructionsNot on filedocumented in this encounterS[facility] InstructionsNot on filedocumented in this encounterShelby [facility] Hospital SystemReason for referral (narrative)* Diagnostic Procedure Only (Routine) - Pending Review Specialty Diagnoses / Procedures Referred By Blair beltran Referred To Contact XR IMAGING Diagnoses Fertility testing Procedures XR HYSTEROSALPINGOGRAM CATH & SALINE/CONTRAST SONOHYSTER/HYSTEROSALPI Fede Hairston MD [address] [place] [address] Xr Imaging [facility]95 Referral ID Status Reason Start Date Expiration Date Visits Requested Visits Authorized [id number] Pending Review Auto-Generat ed Referral 04/18/2023 05/17/2024 1 1 [facility] for referral (narrative)* Diagnostic Procedure Only (Routine) - Pending Review Specialty Diagnoses / Procedures Referred By Blair beltran Referred To Contact [facility] Diagnoses Female infertility Procedures FOLLICULAR US WHI US PELVIC NONOBSTETRIC IMAGE DCMTN LIMITED/F/U Ortega Morrissey APRN.CNM [address] [facility] [place] [address] [facility] [address] [place] [address] Referral ID Status Reason Start Date Expiration Date Visits Requested Visits Authorized [id number] Pending Review Auto-Generat ed Referral 09/10/2023 09/09/2024 1 1 [facility] for referral (narrative)* Diagnostic Procedure Only (Routine) - New Request Specialty Diagnoses / Procedures Referred By Contac t Referred To Contact [facility] Diagnoses Female infertility Procedures FOLLICULAR US I US PELVIC NONOBSTETRIC IMAGE JOE LIMITED/F/U Ortega Morrissey APRN.[employer] [id number] [facility] [place] [address] [facility] [address] [place] [id number] Referral ID Status Reason Start Date Expiration Date Visits Requested Visits Authorized [id number] New Request Auto-Generat ed Referral 12/13/2023 12/12/2024 1 1 [facility] for referral (narrative)* Diagnostic Procedure Only (Routine) - New Request Specialty Diagnoses / Procedures Referred By Contac t Referred To Contact [facility] Diagnoses Female infertility Procedures FOLLICULAR US I US PELVIC NONOBSTETRIC IMAGE JOE HUFF/F/U Ortega Morrissey APRN.[employer] [address] [facility] [place] [address] [facility] [address] [place] [address] Referral ID Status Reason Start Date Expiration Date Visits Requested Visits Authorized [id number] New Request Auto-Generat ed Referral 4 02/14/2025 1 1 [facility] Diagnostic Procedure Only (Routine) - Authorized Specialty Diagnoses / Procedures Referred By Contac t Referred To Contact [facility] Diagnoses Supervision of with history of infertility, first trimester Procedures OBSTETRIC ULTRASOUND WHI US PREG UTERUS AFTER 1ST TRIMEST GESTATION Ortega Morrissey APRN.[employer]NER [address] [facility] [place] [address] [facility] [address] [place] [address] Referral ID Status Reason Start Date Expiration Date Visits Requested Visits Authorized [id number] Authorized Auto-Generat ed Referral 4 03/17/2025 1 1 [facility] for visit Narrative* Diagnostic Procedure Only (Routine) - Closed Specialty Diagnoses / Procedures Referred By Blair beltran Referred To Contact [facility] Diagnoses Supervision of with history of infertility, first trimester Procedures OBSTETRIC ULTRASOUND [facility] US PREG UTERUS AFTER 1ST TRIMEST GESTATION Ortega Morrissey APRN.[employer] [address] [facility] [address] [place] [phone] Referral ID Status Reason Start Date Expiration Date V isits Requested Visits Authorized [id number] Closed Auto-Generate d Referral 03/17/2024 03/17/2025 1 1 [facility] Summary Purpose Family History No Family History Records Found Relationship Condition Age at Onset Recorded Date/T lucero father Diabetes mellitus Unknown Heart disease Unknown mother Hypertension Unknown Advance Directives No Advanced Directives Records Found Advance Directive Response Recorded Date/ Time Advance Directives No February 2:57pm Reason for Referral Specialty Diagnoses / Procedures Referred By Blair t Referred To Contact [facility] Diagnoses Female infertility Procedures FOLLICULAR US I US PELVIC NONOBSTETRIC IMAGE DCMTN LIMITED/F/U rOtega Morrissey APRN.[employer]NER [address] [facility] [address] [address] [place] [address] Referral ID Status Reason Start Date Expiration Date Visits Requested Visits Authorized [id number] Authorized Benefit Check 11/15/2023 03/28/2024 1 1 Specialty Diagnoses / Procedures Referred By Blair t Referred To Contact Ortega Morrissey APRN.[employer] [address] [facility] [address] Referral ID Status Reason Start Date Expiration Date Visits Re quested Visits Authorized [id number] Closed 1 1 Specialty Diagnoses / Procedures Referred By Blair t Referred To Contact Diagnoses Obesity, Class III, BMI 40-49.9 (morbid obesity) (HCC) Procedures ENDOCRINE MEDICAL WEIGHT MANAGEMENT OFFICE/OUTPATIENT [facility] 60 MINUTES Mirta Gallagher MD [address] [place] [id number] Referral ID Status Reason Start Date Expiration Date Visits Requested Visits Authorized [id number] Authorized PCP Requested Referral 08/17/2023 08/16/2024 1 1 Specialty Diagnoses / Procedures Referred By Contac t Referred To Contact CT IMAGING Diagnoses Intra-abdominal and pelvic swelling, mass and lump, unspecified site Procedures CT ABDOMEN W IVCON CT ABDOMEN W/CONTRAST Мария Laboy MD [address] [place] [address] [facility] [place] [address] Referral ID Status Reason Start Date Expiration Date Visits Requested Visits Authorized [id number] Pending Review Auto-Generat ed Referral 06/16/2023 07/15/2024 1 1 Specialty Diagnoses / Procedures Referred By Contac t Referred To Contact CT IMAGING Diagnoses Localized enlarged lymph nodes Procedures CT CHEST W IVCON DIAGNOSTIC COMPUTED TOMOGRAPHY THORAX W/CONTRAST Мария Laboy MD [address] [place] [address] Ct [facility] [place] [address] Referral ID Status Reason Start Date Expiration Date Visits Requested Visits Authorized [id number] Pending Review Auto-Generat ed Referral 06/16/2023 07/15/2024 1 1 Specialty Diagnoses / Procedures Referred By Contac t Referred To Contact CT IMAGING Diagnoses Localized enlarged lymph nodes Procedures CT NECK SOFT TISSUE W IVCON CT SOFT TISSUE NECK W/CONTRAST MATERIAL Мария Laboy MD [address] [place] [address] [facility] [place] [address] Referral ID Status Reason Start Date Expiration Date Visits Requested Visits Authorized [id number] Pending Review Auto-Generat ed Referral 06/16/2023 07/15/2024 1 1 Chief Complaint and Reason for Visit Chief Complaint Admit Date R00.2 R01.1 August 24, 2024 12:14 pm Additional Source Comments INFORMATION SOURCE (unrecogn ized section and content) DATE CREATED AUTHOR 12/06/2019 [facility] DATE CREATED AUTHOR AUTHOR'S ORGANIZ ATION 07/24/2023 [facility] DATE CREATED AUTHOR AUTHOR'S ORGANIZ ATION 02/25/2024 [facility] DATE CREATED AUTHOR AUTHOR'S ORGANIZ ATION 03/11/2024 [place] DATE CREATED AUTHOR AUTHOR'S ORGANIZ ATION 03/11/2024 [facility] DATE CREATED AUTHOR AUTHOR'S ORGANIZ ATION 09/20/2024 [facility] DATE CREATED AUTHOR AUTHOR'S ORGANIZ ATION 09/21/2024 [facility] DATE CREATED AUTHOR AUTHOR'S ORGANIZ ATION 09/26/2024 [facility] DATE CREATED AUTHOR AUTHOR'S ORGANIZ ATION 09/28/2024 [facility] REASON FOR VISIT (unrecogniz ed section and content) Reason Comments Infertility Specialty Diagnoses / Procedures Referred By Contac t Referred To Contact [facility] Diagnoses Female infertility Procedures FOLLICULAR US [facility] US PELVIC NONOBSTETRIC IMAGE DCMTN LIMITED/F/U Ortega Morrissey, DEBBIE.[employer] [address] [facility] [place] [address] [facility] [address] [place] [address] Referral ID Status Reason Start Date Expiration Date V isits Requested Visits Authorized [id number] Closed Benefit Check 02/16/2024 03/28/2024 1 1 Reason Comments started letrozole Specialty Diagnoses / Procedures Referred By Controberto t Referred To Contact [facility] Diagnoses Secondary amenorrhea PCOS (polycystic ovarian syndrome) Procedures PELVIC US [facility] US PELVIC NONOBSTETRIC REAL-TIME IMAGE Fede Navarro MD [address] [place] [address] [facility] [address] [place] [address] Referral ID Status Reason Start Date Expiration Date V isits Requested Visits Authorized [id number] Closed Benefit Check 01/21/2023 03/28/2023 1 1 Reason Comments Follow Up Reason Comments Follow Up Reason Comments Appointment Reason Comments refill letrozol/cycle to start in next w wainwright Reason Comments Rotoprinter - Other Hereditary Para ganglioma-Pheochromocytoma Syndrome clinic Reason Comments Results Genetic Reason Comments Nurse Visit Specialty Diagnoses / Procedures Referred By Contac t Referred To Contact XR IMAGING Diagnoses Fertility testing Procedures XR HYSTEROSALPINGOGRAM CATH & SALINE/CONTRAST SONOHYSTER/HYSTEROSALPI HYSTEROSALPINGOGRAPHY RS&I URINE TEST Fede Hairston MD [address] [place] [address] [place] [address] Referral ID Status Reason Start Date Expiration Date V isits Requested Visits Authorized [id number] Closed Benefit Check 07/19/2023 03/28/2024 1 1 Reason Comments paraganglioma Reason Comments New Patient SHDA ref by Fina Tate Reason Comments lmp 07/23 no cycle since then Reason Comments Patient Question Reason Comments Treatment Planning Reason Comments Ortega lmp today/re us day 11-13 for iui Reason Comments trigger shot Specialty Diagnoses / Procedures [facility] Referred To Contact [facility] Diagnoses Female infertility Procedures FOLLICULAR US WHI US PELVIC NONOBSTETRIC IMAGE DCMTN LIMITED/F/U Ortega Morrissey, DEBBIE.[employer] [address] [facility] [address] [facility] [address] [place] [address] Referral ID Status Reason Start Date Expiration Date Visits Re quested Visits Authorized [id number] Closed 09/14/2023 03/28/2024 1 1 Specialty Diagnoses / Procedures [facility] By [facility] Referred To Contact [facility] Diagnoses Encounter for other procreative management Procedures ARTIFIC INSEMINATION INTRAUTERIN Ortgea Morrissey APRN.[employer] [id number] [facility] [place] [address] Ortega Morrissey APRN.[employer]NER [address] [facility] [place] [address] Referral ID Status Reason Start Date Expiration Date V isits Requested Visits Authorized [id number] Closed Benefit Check 09/17/2023 03/16/2024 1 1 Reason Comments iui 10/25 , cd 1 11/11 Reason Comments Treatment Planning Referral ID Status Reason Start Date Expiration Date V isits Requested Visits Authorized [id number] Closed Benefit Check 11/15/2023 03/28/2024 1 1 Specialty Diagnoses / Procedures Referred By Blair beltran Referred To Contact LABORATORY MEDICINE Diagnoses Encounter for other procreative management Procedures ARTIFIC INSEMINATION INTRAUTERIN Deshawn Riojas MD [address] [place] [address] [facility] [address] [place] [address] Referral ID Status Reason Start Date Expiration Date V isits Requested Visits Authorized [id number] Closed Financial Clearance Required - Self Pay 11/27/2023 02/25/2024 1 1 Reason Comments LMP 12/12/23/ set up monitored cycle Patient Update Referral ID Status Reason Start Date Expiration Date V isits Requested Visits Authorized [id number] Closed Benefit Check 12/15/2023 03/28/2024 1 1 Reason Comments IUI Specialty Diagnoses / Procedures Referred By Blair beltran Referred To Contact [facility] Diagnoses Encounter for other procreative management Female infertility, unspecified Procedures ARTIFIC INSEMINATION INTRAUTERIN Self Whi Gayathri [facility] [address] [place] [id number] Referral ID Status Reason Start Date Expiration Date Visits Requested Visits Authorized [id number] Authorized Benefit Check 09/15/2023 03/16/2024 2 2 [...] Visit Reason Comments Toenail Problem 29 yo [employer] presents to day with concerns of toenail [...] gestational diabetes method of control unspecified Saravanan Ahumada, DO [address] [place] [address] Phone: tel: fax: [facility] [address] [facility] [place] [address] Phone: tel: fax: Referral ID Status Reason Start Date Expiration Date Visits Requested Visits Authorized [id number] Pending Review Specialty Services Required 08/29/2024 08/29/2025 1 1 Reason Comments MEDSTART-GDM Reason Comments Follow Up Yearly follow up Source Comments (unrecognize d section and content) In the event this informatio n is protected by the Federal Confidentiality of Alcohol and Drug Abuse Patient Records regulations: The Federal rules restrict any use of the information to criminally investigate or prosecute any alcohol or drug abuse patient.[facility] HospitalIn the event this information is protected by the Federal Confidentiality of Alcohol and Drug Abuse Patient Records regulations: The Federal rules restrict any use of the information to criminally investigate or prosecute any alcohol or drug abuse patient.[facility] HospitalIn the event this information is protected by the Federal Confidentiality of Alcohol and Drug Abuse Patient Records regulations: The Federal rules restrict any use of the information to criminally investigate or prosecute any alcohol or drug abuse patient.[facility] HospitalIn the event this information is protected by the Federal Confidentiality of Alcohol and Drug Abuse Patient Records regulations: The Federal rules restrict any use of the information to criminally investigate or prosecute any alcohol or drug abuse patient.[facility] HospitalIn the event this information is protected by the Federal Confidentiality of Alcohol and Drug Abuse Patient Records regulations: The Federal rules restrict any use of the information to criminally investigate or prosecute any alcohol or drug abuse patient.[facility] HospitalIn the event this information is protected by the Federal Confidentiality of Alcohol and Drug Abuse Patient Records regulations: The Federal rules restrict any use of the information to criminally investigate or prosecute any alcohol or drug abuse patient.[facility] HospitalIn the event this information is protected by the Federal Confidentiality of Alcohol and Drug Abuse Patient Records regulations: The Federal rules restrict any use of the information to criminally investigate or prosecute any alcohol or drug abuse patient.[facility] HospitalIn the event this information is protected by the Federal Confidentiality of Alcohol and Drug Abuse Patient Records regulations: The Federal rules restrict any use of the information to criminally investigate or prosecute any alcohol or drug abuse patient.[facility] HospitalIn the event this information is protected by the Federal Confidentiality of Alcohol and Drug Abuse Patient Records regulations: The Federal rules restrict any use of the information to criminally investigate or prosecute any alcohol or drug abuse patient.[facility] HospitalIn the event this information is protected by the Federal Confidentiality of Alcohol and Drug Abuse Patient Records regulations: The Federal rules restrict any use of the information to criminally investigate or prosecute any alcohol or drug abuse patient.[facility] HospitalIn the event this information is protected by the Federal Confidentiality of Alcohol and Drug Abuse Patient Records regulations: The Federal rules restrict any use of the information to criminally investigate or prosecute any alcohol or drug abuse patient.[facility] HospitalIn the event this information is protected by the Federal Confidentiality of Alcohol and Drug Abuse Patient Records regulations: The Federal rules restrict any use of the information to criminally investigate or prosecute any alcohol or drug abuse patient.[facility] HospitalIn the event this information is protected by the Federal Confidentiality of Alcohol and Drug Abuse Patient Records regulations: The Federal rules restrict any use of the information to criminally investigate or prosecute any alcohol or drug abuse patient.[facility] HospitalIn the event this information is protected by the Federal Confidentiality of Alcohol and Drug Abuse Patient Records regulations: The Federal rules restrict any use of the information to criminally investigate or prosecute any alcohol or drug abuse patient.[facility] HospitalIn the event this information is protected by the Federal Confidentiality of Alcohol and Drug Abuse Patient Records regulations: The Federal rules restrict any use of the information to criminally investigate or prosecute any alcohol or drug abuse patient.[facility] HospitalIn the event this information is protected by the Federal Confidentiality of Alcohol and Drug Abuse Patient Records regulations: The Federal rules restrict any use of the information to criminally investigate or prosecute any alcohol or drug abuse patient.[facility] HospitalIn the event this information is protected by the Federal Confidentiality of Alcohol and Drug Abuse Patient Records regulations: The Federal rules restrict any use of the information to criminally investigate or prosecute any alcohol or drug abuse patient.[facility] HospitalIn the event this information is protected by the Federal Confidentiality of Alcohol and Drug Abuse Patient Records regulations: The Federal rules restrict any use of the information to criminally investigate or prosecute any alcohol or drug abuse patient.[facility] HospitalIn the event this information is protected by the Federal Confidentiality of Alcohol and Drug Abuse Patient Records regulations: The Federal rules restrict any use of the information to criminally investigate or prosecute any alcohol or drug abuse patient.[facility] HospitalIn the event this information is protected by the Federal Confidentiality of Alcohol and Drug Abuse Patient Records regulations: The Federal rules restrict any use of the information to criminally investigate or prosecute any alcohol or drug abuse patient.[facility] HospitalIn the event this information is protected by the Federal Confidentiality of Alcohol and Drug Abuse Patient Records regulations: The Federal rules restrict any use of the information to criminally investigate or prosecute any alcohol or drug abuse patient.[facility] HospitalIn the event this information is protected by the Federal Confidentiality of Alcohol and Drug Abuse Patient Records regulations: The Federal rules restrict any use of the information to criminally investigate or prosecute any alcohol or drug abuse patient.[facility] HospitalIn the event this information is protected by the Federal Confidentiality of Alcohol and Drug Abuse Patient Records regulations: The Federal rules restrict any use of the information to criminally investigate or prosecute any alcohol or drug abuse patient.[facility] HospitalIn the event this information is protected by the Federal Confidentiality of Alcohol and Drug Abuse Patient Records regulations: The Federal rules restrict any use of the information to criminally investigate or prosecute any alcohol or drug abuse patient.[facility] HospitalIn the event this information is protected by the Federal Confidentiality of Alcohol and Drug Abuse Patient Records regulations: The Federal rules restrict any use of the information to criminally investigate or prosecute any alcohol or drug abuse patient.[facility] HospitalIn the event this information is protected by the Federal Confidentiality of Alcohol and Drug Abuse Patient Records regulations: The Federal rules restrict any use of the information to criminally investigate or prosecute any alcohol or drug abuse patient.[facility] HospitalIn the event this information is protected by the Federal Confidentiality of Alcohol and Drug Abuse Patient Records regulations: The Federal rules restrict any use of the information to criminally investigate or prosecute any alcohol or drug abuse patient.[facility] HospitalIn the event this information is protected by the Federal Confidentiality of Alcohol and Drug Abuse Patient Records regulations: The Federal rules restrict any use of the information to criminally investigate or prosecute any alcohol or drug abuse patient.[facility] HospitalIn the event this information is protected by the Federal Confidentiality of Alcohol and Drug Abuse Patient Records regulations: The Federal rules restrict any use of the information to criminally investigate or prosecute any alcohol or drug abuse patient.[facility] HospitalIn the event this information is protected by the Federal Confidentiality of Alcohol and Drug Abuse Patient Records regulations: The Federal rules restrict any use of the information to criminally investigate or prosecute any alcohol or drug abuse patient.[facility] HospitalIn the event this information is protected by the Federal Confidentiality of Alcohol and Drug Abuse Patient Records regulations: The Federal rules restrict any use of the information to criminally investigate or prosecute any alcohol or drug abuse patient.[facility] HospitalIn the event this information is protected by the Federal Confidentiality of Alcohol and Drug Abuse Patient Records regulations: The Federal rules restrict any use of the information to criminally investigate or prosecute any alcohol or drug abuse patient.[facility] HospitalIn the event this information is protected by the Federal Confidentiality of Alcohol and Drug Abuse Patient Records regulations: The Federal rules restrict any use of the information to criminally investigate or prosecute any alcohol or drug abuse patient.[facility] HospitalIn the event this information is protected by the Federal Confidentiality of Alcohol and Drug Abuse Patient Records regulations: The Federal rules restrict any use of the information to criminally investigate or prosecute any alcohol or drug abuse patient.[facility] HospitalIn the event this information is protected by the Federal Confidentiality of Alcohol and Drug Abuse Patient Records regulations: The Federal rules restrict any use of the information to criminally investigate or prosecute any alcohol or drug abuse patient.[facility] HospitalIn the event this information is protected by the Federal Confidentiality of Alcohol and Drug Abuse Patient Records regulations: The Federal rules restrict any use of the information to criminally investigate or prosecute any alcohol or drug abuse patient.[facility] HospitalIn the event this information is protected by the Federal Confidentiality of Alcohol and Drug Abuse Patient Records regulations: The Federal rules restrict any use of the information to criminally investigate or prosecute any alcohol or drug abuse patient.[facility] HospitalIn the event this information is protected by the Federal Confidentiality of Alcohol and Drug Abuse Patient Records regulations: The Federal rules restrict any use of the information to criminally investigate or prosecute any alcohol or drug abuse patient.[facility] HospitalIn the event this information is protected by the Federal Confidentiality of Alcohol and Drug Abuse Patient Records regulations: The Federal rules restrict any use of the information to criminally investigate or prosecute any alcohol or drug abuse patient.[facility] HospitalIn the event this information is protected by the Federal Confidentiality of Alcohol and Drug Abuse Patient Records regulations: The Federal rules restrict any use of the information to criminally investigate or prosecute any alcohol or drug abuse patient.[facility] HospitalIn the event this information is protected by the Federal Confidentiality of Alcohol and Drug Abuse Patient Records regulations: The Federal rules restrict any use of the information to criminally investigate or prosecute any alcohol or drug abuse patient.[facility] HospitalIn the event this information is protected by the Federal Confidentiality of Alcohol and Drug Abuse Patient Records regulations: The Federal rules restrict any use of the information to criminally investigate or prosecute any alcohol or drug abuse patient.[facility] HospitalIn the event this information is protected by the Federal Confidentiality of Alcohol and Drug Abuse Patient Records regulations: The Federal rules restrict any use of the information to criminally investigate or prosecute any alcohol or drug abuse patient.[facility] HospitalIn the event this information is protected by the Federal Confidentiality of Alcohol and Drug Abuse Patient Records regulations: The Federal rules restrict any use of the information to criminally investigate or prosecute any alcohol or drug abuse patient.[facility] HospitalIn the event this information is protected by the Federal Confidentiality of Alcohol and Drug Abuse Patient Records regulations: The Federal rules restrict any use of the information to criminally investigate or prosecute any alcohol or drug abuse patient.[facility] HospitalIn the event this information is protected by the Federal Confidentiality of Alcohol and Drug Abuse Patient Records regulations: The Federal rules restrict any use of the information to criminally investigate or prosecute any alcohol or drug abuse patient.[facility] HospitalIn the event this information is protected by the Federal Confidentiality of Alcohol and Drug Abuse Patient Records regulations: The Federal rules restrict any use of the information to criminally investigate or prosecute any alcohol or drug abuse patient.[facility] HospitalIn the event this information is protected by the Federal Confidentiality of Alcohol and Drug Abuse Patient Records regulations: The Federal rules restrict any use of the information to criminally investigate or prosecute any alcohol or drug abuse patient.[facility] HospitalIn the event this information is protected by the Federal Confidentiality of Alcohol and Drug Abuse Patient Records regulations: The Federal rules restrict any use of the information to criminally investigate or prosecute any alcohol or drug abuse patient.[facility] Care Teams (unrecognized sec tion and content) Foreign Correspondent Relationship Specialty Start Date End Date Robles Goldsmith DO [address] [place] [address] Referring Obstetrics 10/13/22 Foreign Correspondent Relationship Specialty Start Date End Date Robles Goldsmith DO [address] [place] [address] Referring Obstetrics 10/13/22 Foreign Correspondent Relationship Specialty Start Date End Date Robles Goldsmith, [address] [place] [address] Referring Obstetrics 10/13/22 Foreign Correspondent Relationship Specialty Start Date End Date Robles Goldsmith, [address] [place] [address] Referring Obstetrics 10/13/22 Foreign Correspondent Relationship Specialty Start Date End Date Robles Goldsmith DO [address] [place] [address] Referring Obstetrics 10/13/22 Foreign Correspondent Relationship Specialty Start Date End Date Robles Goldsmith, DO [address] [place] [address] Referring Obstetrics 10/13/22 Foreign Correspondent Relationship Specialty Start Date End Date Robles Goldsmith, DO [address] [place] [address] Referring Obstetrics 10/13/22 Foreign Correspondent Relationship Specialty Start Date End Date Robles Goldsmith, DO [address] [place] [address] Referring Obstetrics 10/13/22 Foreign Correspondent Relationship Specialty Start Date End Date Robles Goldsmith, DO [address] [place] [address] Referring Obstetrics 10/13/22 Foreign Correspondent Relationship Specialty Start Date End Date Robles Goldsmith, DO [address] [place] [address] Referring Obstetrics 10/13/22 Foreign Correspondent Relationship Specialty Start Date End Date Robles Goldsmith, DO [address] [place] [address] Referring Obstetrics 10/13/22 Foreign Correspondent Relationship Specialty Start Date End Date Robles Goldsmith, DO [address] [place] [address] Referring Obstetrics 10/13/22 Foreign Correspondent Relationship Specialty Start Date End Date Robles Goldsmith, DO [address] [place] [address] Referring Obstetrics 10/13/22 Foreign Correspondent Relationship Specialty Start Date End Date Robles Goldsmith, [address] [place] [address] Referring Obstetrics 10/13/22 Foreign Correspondent Relationship Specialty Start Date End Date Robles Goldsmith, [address] [place] [address] Referring Obstetrics 10/13/22 Foreign Correspondent Relationship Specialty Start Date End Date Robles Goldsmith, [address] [place] [address] Referring Obstetrics 10/13/22 Foreign Correspondent Relationship Specialty Start Date End Date Robles Goldsmith, DO [address] [place] [address] Referring Obstetrics 10/13/22 Foreign Correspondent Relationship Specialty Start Date End Date Robles Goldsmith, DO [address] [place] [address] Referring Obstetrics 10/13/22 Foreign Correspondent Relationship Specialty Start Date End Date Robles Goldsmith, DO [address] [place] [address] Referring Obstetrics 10/13/22 Foreign Correspondent Relationship Specialty Start Date End Date Lito Velazquez MD [address] [place], [place] [id number] PCP - General Internal Medicine 10/05/22 Foreign Correspondent Relationship Specialty Start Date End Date Lito Velazquez MD [address] [place] [address] PCP - General Internal Medicine 10/05/22 Foreign Correspondent Relationship Specialty Start Date End Date Lito Velazquez MD [address] [place] [address] PCP - General Internal Medicine 02/14/24 Foreign Correspondent Relationship Specialty Start Date End Date Robles Goldsmith DO [address] [place] [address] Referring Obstetrics 10/13/22 Foreign Correspondent Relationship Specialty Start Date End Date Lito Velazquez MD [address] [place] [address] PCP - General Internal Medicine 10/05/22 Foreign Correspondent Relationship Specialty Start Date End Date Robles Goldsmith DO [address] [place] [address] Referring Obstetrics 10/13/22 Foreign Correspondent Relationship Specialty Start Date End Date Lito Velazquez MD [address] [place] [address] PCP - General Internal Medicine 10/05/22 Foreign Correspondent Relationship Specialty Start Date End Date Lito Velazquez MD [address] [place] [address] PCP - General Internal Medicine 10/05/22 Foreign Correspondent Relationship Specialty Start Date End Date Lito Velazquez MD [address] [place] [address] PCP - General Internal Medicine 10/05/22 Foreign Correspondent Relationship Specialty Start Date End Date Lito Velazquez MD [address] [place] [address] PCP - General Internal Medicine 10/05/22 Foreign Correspondent Relationship Specialty Start Date End Date Lito Velazquez MD [address] [place] [address] PCP - General Internal Medicine 10/05/22 Foreign Correspondent Relationship Specialty Start Date End Date Robles Goldsmith DO [address] [place] [address] Referring Obstetrics 10/13/22 Josefina Harris, ARIC [address] [facility] [address] Registered Nurse 04/12/24 Foreign Correspondent Relationship Specialty Start Date End Date Lito Velazquez MD [address] [place] [address] PCP - General Internal Medicine 10/05/22 Foreign Correspondent Relationship Specialty Start Date End Date Lito Velazquez MD [address] [place] [address] PCP - General Internal Medicine 10/05/22 Foreign Correspondent Relationship Specialty Start Date End Date Lito Velazquez MD [address] [place] [address] PCP - General Internal Medicine 10/05/22 Foreign Correspondent Relationship Specialty Start Date End Date Lito Velazquez MD [address] [place] [address] PCP - General Internal Medicine 10/05/22 Team Status: Active Member Role Status Dates Lito Velazquez MD Primary Care Provider Active Team Status: Inactive Member Role Status Dates Lito Velazquez MD Primary Care Provider Active St art: August 24, 2024 End: August 24, 2024 Jaime Davies , RN MSN ANP-C Attending Provider Act utcker Start: August 24, 2024 End: August 24, 2024 Foreign Correspondent Relationship Specialty Start Date End Date Robles Goldsmith DO [address] [place] [address] Referring Obstetrics 10/13/22 Josefina Harris, ARIC [address] [place] [address] Specialty Rotoprinter 04/12/24 Foreign Correspondent Relationship Specialty Start Date End Date Lito Velazquez MD [address] [place] [address] PCP - General Internal Medicine 10/05/22 Foreign Correspondent Relationship Specialty Start Date End Date Lito Velazquez MD [address] [place] [address] PCP - General Internal Medicine 10/05/22 Foreign Correspondent Relationship Specialty Start Date End Date Lito Velazquez MD [address] [place] [address] PCP - General Internal Medicine 10/05/22 Foreign Correspondent Relationship Specialty Start Date End Date Lito Velazquez MD [address] [place] [address] PCP - General Internal Medicine 10/05/22 Foreign Correspondent Relationship Specialty Start Date End Date Lito Velazquez MD [address] [place] [address] PCP - General Internal Medicine 10/05/22 Foreign Correspondent Relationship Specialty Start Date End Date Robles Goldsmith DO [address] [place] [address] Referring Obstetrics 10/13/22 Josefina Harris, ARIC [address] [place] [address] Specialty Rotoprinter 04/12/24 Foreign Correspondent Relationship Specialty Start Date End Date Lito Velazquez MD [address] [place] [address] PCP - General Internal Medicine 10/05/22 Goals [...] BE BASED ON THE PRIMARY CLINICAL RECORDS. [facility]. provides no warranty or guarantee of the accuracy or completeness of information in this document.
--- OUTSIDE RECORDS SUMMARY | 2024-09-30 09:04 | XMS_ITS | Encounter Summary ---
Author Organization [facility] Address [address] [place] [address] Care Team Providers Care Assembly Line Supervisor Name Role Phone Omer Velazquez MD Primary Care Provider [phone] Encounter Details Date Type Department Care Team (Late st Contact Info) Description 10/05/2022 Abstract [facility] [address] [facility] [address] [place] [address] Robles Goldsmith, DO [address] [facility] [address] [place] [address] Social History Tobacco Use Types Packs/Day Years [...] Procedure [facility] [address] [place] [address] 10/02/2024 11:00 AM EDT Routine [facility] [address] [place] [address] Saravanan Ahumada DO [address] [facility] [place] [address] 07/24/2025 9:15 AM EDT Office Visit [facility] IM [address] [facility] [address] [place] [address] documented as of this encounter Visit Diagnoses Not on filedocumented in this encounter Care Teams Assembly Line Supervisor Relationship Specialty Start Date End Date Omer Velazquez MD [address] [facility] [address] [place] [address] PCP - General Internal Medicine 10/05/22 documented as of this encounter
--- OUTSIDE RECORDS SUMMARY | 2024-09-30 09:04 | XMS_ITS | Encounter Summary ---
Author Organization [facility] Address [id number] [place] [address] Care Team Providers Care Occasional Babysitter Name Role Phone Unavailable Primary Care Provider Unavailabl e Encounter Details Date Type Department Care Team (Latest Contact Info) Description 09/20/2024 Travel Social History Tobacco Use Types Packs/Day [...] [facility] [place] [address] [place] [address] Siria Rebolledo, SOFTWARE TOOLS ENGINEER-CLINICAL TRIALS MANAGER [address] [place] [address] 10/16/2024 2:00 PM EDT Office Visit Maternal- Medicine at [facility] [place] [address] [place] [address] Vy Pemberton MD [address], [address] [place] [address] documented as of this encounter Visit Diagnoses Not on filedocumented in this encounter
--- OUTSIDE RECORDS SUMMARY | 2024-09-30 09:04 | XMS_ITS | Encounter Summary ---
Author Organization [facility] Address [address] [place] [address] Care Team Providers Care Metal Trim Erector Name Role Phone Robles Goldsmith DO Unavailable [phone] Josefina Harris RN Unavailable [phone] Source Comments In the event this information is protected by the Federal Confidentiality of Alcohol and Drug AbusePatient Records regulations: The Federal rules restrict any use of the information to criminally investigate or prosecute any alcohol or drug abuse patient.[facility] Encounter Details Date Type Department Care Team (Late st Contact Info) Description 09/10/2023 Patient Msg Reproductive Endocrinology Infertility [address] [place] [address] Haritha Casiano APRN.FARM BUTCHER [address] [place] [address] IUI information Social History Tobacco Use Types [...] on filedocumented in this encounter Care Teams Metal Trim Erector Relationship Specialty Start Date End Date Robles Goldsmith DO [address] [facility] [address] [place] [address] Referring Obstetrics 10/13/22 [place] [address] [place] [address] Specialty Web Support Engineer 04/12/24 documented as of this encounter
--- OUTSIDE RECORDS SUMMARY | 2024-09-30 09:04 | XMS_ITS | Encounter Summary ---
Author Organization [facility] Address [address] [place] [address] Care Team Providers Care Security Screener Name Role Phone Robles Goldsmith DO Unavailable [phone] Josefina Harris RN Unavailable [phone] Source Comments In the event this information is protected by the Federal Confidentiality of Alcohol and Drug AbusePatient Records regulations: The Federal rules restrict any use of the information to criminally investigate or prosecute any alcohol or drug abuse patient.[facility] Encounter Details Date Type Department Care Team (Late st Contact Info) Description 02/11/2024 Patient Msg Family Medicine [address] [place], [place] [id number] Provider, Ccf Appointment Cancellation Social History Tobacco [...] for [email or web address]/. Last address used for calculation [address] [place] [address] 12/21/2023 Comments No Sex and Gender Information Value Date Recorded Sex Assigned at Female 01/04/2023 6:38 PM EDT Legal Sex Female 10:39 AM EDT Gender Identity Female 01/04/2023 6:38 PM EDT Sexual Orientation Not on file documented as of this encounter Plan of Treatment Not on file documented as of this encounter Visit Diagnoses Not on filedocumented in this encounter Care Teams Security Screener Relationship Specialty Start Date End Date Robles Goldsmith DO [address] [facility] [address] [place] [address] Referring Obstetrics 10/13/22 [place] [address] [place] [address] Specialty Flanger 04/12/24 documented as of this encounter
--- OUTSIDE RECORDS SUMMARY | 2024-09-30 09:04 | XMS_ITS | Encounter Summary ---
Author Organization [facility] Address [address] [place] [address] Care Team Providers Care Chief Of Safety And Protection Name Role Phone Robles Goldsmith DO Unavailable [phone] Josefina Harris RN Unavailable [phone] Source Comments In the event this information is protected by the Federal Confidentiality of Alcohol and Drug AbusePatient Records regulations: The Federal rules restrict any use of the information to criminally investigate or prosecute any alcohol or drug abuse patient.[facility] Encounter Details Date Type Department Care Team (Late st Contact Info) Description 01/20/2023 Get Medical Advice Reproductive Endocrinology Infertility [address] [place] [address] Shaina Edge MD [facility] [place] [phone] ATTN: Domenica Social History Tobacco Use Types [...] on filedocumented in this encounter Care Teams Chief Of Safety And Protection Relationship Specialty Start Date End Date Robles Goldsmith DO [address] [facility] [address] [place] [address] Referring Obstetrics 10/13/22 [place] [address] [place] [address] Specialty News Production Assistant 04/12/24 documented as of this encounter
--- OUTSIDE RECORDS SUMMARY | 2024-09-30 09:04 | XMS_ITS | Clinical Summary ---
Author Organization [facility] Address [address] [address] Phone Care Team Providers Care Belt Loop Maker Name Role Phone Omer Velazquez MD Primary [...] Comments HIV Screening 1995 Lipid Panel 1995 Hepatitis C Screening 2013 Hepatitis A Vaccines (1 of 2 - Risk 2-dose series) 2014 Cervical Cancer Screening 2016 HPV/Cotest 2016 Pap Smear 2016 Varicella Vaccines (2 of 2 - 2-dose childhood series) 06/01/2023 08/04/1996 COVID-19 Vaccine (1 - season) 2023 Influenza Vaccine (Season Ended) 2024 01/30/2015, 02/13/2009 Yearly Adult Physical 02/15/2025 02/15/2024 , 07/13/2023, 11/18/2022 DTaP/Tdap/Td Vaccines (7 - Td or Tdap) [...] to complete this topic Insurance [address] [place] [address] [facility] [address] [place] [address] [facility] Care Teams Belt Loop Maker Relationship Specialty Start Date End Date Omer Velazquez MD [address] [place] [address] PCP - General Internal Medicine 02/14/24
--- OUTSIDE RECORDS SUMMARY | 2024-09-30 09:04 | XMS_ITS | Encounter Summary ---
Author Organization [facility] Address [address] [place] [address] Care Team Providers Care Reproducer Name Role Phone Robles Goldsmith DO Unavailable [phone] Josefina Harris RN Unavailable [phone] Source Comments In the event this information is protected by the Federal Confidentiality of Alcohol and Drug AbusePatient Records regulations: The Federal rules restrict any use of the information to criminally investigate or prosecute any alcohol or drug abuse patient.[facility] Encounter Details Date Type Department Care Team (Late st Contact Info) Description 08/12/2023 Patient [facility] -[address] [place] [address] Cee Palafox RPh At your next appointment, choose [facility]. Social History Tobacco Use [...] on filedocumented in this encounter Care Teams Reproducer Relationship Specialty Start Date End Date Robles Goldsmith DO [address] [facility] [address] [place] [address] Referring Obstetrics 10/13/22 [place] [address] [place] [address] Specialty Photography Sales Associate 04/12/24 documented as of this encounter
--- OUTSIDE RECORDS SUMMARY | 2024-09-30 09:04 | XMS_ITS | Encounter Summary ---
Author Organization [facility] Address [address] [place] [address] Care Team Providers Care Gluing Crew Leader Name Role Phone Omer Velazquez MD Primary Care Provider [phone] Encounter Details Date Type Department Care Team (Late st Contact Info) Description 01/11/2023 Abstract [facility] [address] [facility] [address] [place] [address] Omer Velazquez MD [address] [facility] [address] [place] [address] Social History Tobacco Use Types Packs/Day Years [...] Procedure [facility] [address] [place] [address] 10/02/2024 11:00 AM EDT Routine [facility] [address] [place] [address] Saravanan Ahumada, DO [address] [facility] [place] [address] 07/24/2025 9:15 AM EDT Office Visit [facility] IM [address] [facility] [address] [place] [address] documented as of this encounter Visit Diagnoses Not on filedocumented in this encounter Care Teams Gluing Crew Leader Relationship Specialty Start Date End Date Omer Velazquez MD [address] [place] [address] PCP - General Internal Medicine 10/05/22 documented as of this encounter
--- OUTSIDE RECORDS SUMMARY | 2024-09-30 09:04 | XMS_ITS | Encounter Summary ---
Author Organization [facility] Address [address] [place] [address] Care Team Providers Care Community Liaison Officer Name Role Phone Robles Goldsmith Benitez DO Unavailable [phone] Josefina Harris RN Unavailable [phone] Source Comments In the event this information is protected by the Federal Confidentiality of Alcohol and Drug AbusePatient Records regulations: The Federal rules restrict any use of the information to criminally investigate or prosecute any alcohol or drug abuse patient.[facility] Encounter Details Date Type Department Care Team (Late st Contact Info) Description 09/02/2023 Get Medical Advice Endocrinology [address] [place] [address] Mirta Valderrama MD [address] [place] [address] Follow up questions Social History [...] ovaries documented in this encounter Care Teams Community Liaison Officer Relationship Specialty Start Date End Date Robles Goldsmith DO [address] [address] Referring Obstetrics 10/13/22 [place] [address] [place] [address] Specialty Card Lacer 04/12/24 documented as of this encounter
--- OUTSIDE RECORDS SUMMARY | 2024-09-30 09:04 | XMS_ITS | Encounter Summary ---
Author Organization [facility] Address [address] [place] [address] Care Team Providers Care Boiling House Hand Name Role Phone Omer Velazquez MD Primary Care Provider [phone] Encounter Details Date Type Department Care Team (Late st Contact Info) Description 05/01/2024 Abstract [facility] [address] [place] [address] Saravanan Ahumada, DO [address] [place], [id number] Social History Tobacco Use Types Packs/Day Years [...] EDT Ancillary Procedure [facility] [address] [place] [address] 10/02/2024 11:00 AM EDT Routine [facility] [address] [facility] [place] [id number] Saravanan Ahumada, DO [address] [place] [address] 07/24/2025 9:15 AM EDT Office Visit [facility] [address] [place] [id number] documented as of this encounter Goals Goal Patient Goal Type Associated Problems Recent Progress Patient-Stated? Author Reminders Care Plan OB Reminders No Open Scheduling, Background documented as of this encounter Visit Diagnoses Not on filedocumented in this encounter Additional Health Concerns Active Problems Noted Date Diagnosed Date OB Reminders 04/30/2024 documented as of this encounter Care Teams Boiling House Hand Relationship Specialty Start Date End Date Omer Velazquez MD [address] [place] [address] PCP - General Internal Medicine 10/05/22 documented as of this encounter
[2024-09-30 11:03] VITALS: BP 139/76; PULSE 81
== END 2024-09-30 11:30 | disposition home or self-care (01) ==
LOC: FBCO 09:08 → FBC 10:53
PROVIDERS: PCP Internal Medicine; Visit Provider Obstetrics & Gynecology
DX: O24.419 Gestational diabetes mellitus in pregnancy, unspecified control (principal); Z3A.32 32 weeks gestation of pregnancy
CPT/HCPCS: 59025

== ENCOUNTER 2024-10-03 16:03 | Outpatient (OUT) | payer OTHER, SELFPAY ==
--- OUTSIDE RECORDS SUMMARY | 2024-10-02 11:00 | XMS_ITS ---
Author Name Auto Generated Organization OHIP Support Name Relationship Address Phone CHELSY RIVAS Next of Kin [address] [facility] [place] [address] + CHELSY RIVAS Next of Kin [address] [facility] [address] [facility] [place] [address] + CHELSY RIVAS Next of Kin [address] [place] [address] [address] [facility] [place] [address] + CHELSY WATTS Next of Kin [address] [place] [address] [address] [facility] [place] [address] + CHELSY RIVAS Next of Kin [address] [place] [address] [address] [facility] [place] [address] + CHELSY WATTS Next of Kin [address] [place] [address] [address] [facility] [place] [address] + CHELSY RIVAS Next of Kin [address] [place] [address] [address] [facility] [place] [address] + CHELSY WATTS Next of Kin Unknown Unavailable CHELSY RIVAS Next of Kin [address] [place] [address] [address] [facility] [place] [address] + Anneliese Dawson Next of Kin Unknown [phone] Chelsy Rivas Next of Kin [address] [place] [address] [address] [place] [address] + CHELSY RIVAS Next of Kin [address] [facility] [address] [facility] [place] [address] + CHELSY RIVAS Next of Kin [address] [place] [address] [address] [facility] [place] [address] + CHELSY RIVAS Next of Kin [address] [facility] [place] [address] + CHELSY RIVAS Next of Kin [address] [address] [place] [address] + CHELSY RIVAS Next of Kin [address] [address] [place] [address] + CHELSY RIVAS Next of Kin [address] [address] [facility] [place] [address] + CHELSY RIVAS Next of Kin [address] [address] [facility] [place] [address] + CHELSY RIVAS Next of Kin [address] [address] [place] [address] + CRYSTAL, CHELSY Next of Kin [address] [address] [facility] [place] [address] + CHELSY RIVAS Next of Kin [address] [address] [facility] [place] [address] + CHELSY RIVAS Next of Kin [address] [place] [address] [facility] [place] [address] + CHELSY RIVAS Next of Kin [address] [place] [address] [facility] [place] [address] + CHELSY VALADEZ Next of Kin Unknown [phone] CHELSY VALADEZ Next of Kin Unknown [phone] CHELSY RIVAS Next of Kin [address] [place] [address] [facility] [place] [address] + CHELSY RIVAS Next of Kin [address] [place] [address] [facility] [address] + Care Team Providers Care Medical Assembly Name Role Phone RUBY CANO Attending Unavailable LITO VELAZQUEZ Primary Care Unavailable USHA COLLINS Attending Unavailable LITO VELAZQUEZ Primary Care Unavailable NEGAR GONZALEZ Attending Unavailable MARJORIE BLUE Attending Unavailable NEGAR GONZALEZ Attending Unavailable HÉCTOR GONZALEZY Referring Unavailable NEGAR GONZALEZ Attending Unavailable LITO VELAZQUEZ Attending Unavailable LITO VEALZQUEZ Referring Unavailable VERO HERNANDEZ Attending Unavailable VIRGIL LEONE Attending Unavailable NEGAR GONZALEZ Attending Unavailable HÉCTOR GONZALEZY Referring Unavailable NEGAR GONZALEZ Attending Unavailable NEGAR GONZALEZ Attending Unavailable NEGAR GONZALEZ Attending Unavailable MINDZORA, ORTEGA Referring Unavailable MINDZORA, ORTEGA Attending Unavailable MINDZORA, ORTEGA Referring Unavailable ATTARAN, DESHAWN Attending Unavailable ATTARAN, DESHAWN Referring Unavailable MINDZORA, ORTEGA Attending Unavailable MINDZORA, ORTEGA Referring Unavailable MINDZORA, ORTEGA Referring Unavailable TANTIBHEDHYANGKUL, FEDE Attending Unav ailable MINDZORA, ORTEGA Attending Unavailable SELF Referring Unavailable GALLAGHER, MIRTA Attending Unavailable MINDZORA, ORTEGA Referring Unavailable TANTIBHEDHYANGKUL, FEDE Attending Unav ailable MINDZORA, ORTEGA Referring Unavailable VOVANESSA Attending Unavailable MINDZORA, ORTEGA Referring Unavailable MINDZORA, ORTEGA Referring Unavailable MINDZORA, ORTEGA Attending Unavailable MINDZORA, ORTEGA Referring Unavailable GALLAGHER, MIRTA Referring Unavailable ASPENМАРИЯ Attending Unavailable TANTIBHEDHYANGKUL, FEDE Referring Unav ailable REHMER, JAILENE Referring Unavailable Lito Velazquez Primary Care Unavailable Jaime Davies Attending Unavailable Jaime Davies Admitting Unavailable BIPIN ZHENG Attending Unavailable LISA, NEGAR R Referring Unavailable BRIAN POE Attending Unavailable LISA, NEGAR R Referring Unavailable VIRGENALTON Attending Unavailable LISA, NEGAR R Referring Unavailable PROBLEMS DATE TYPE CONDITION / CODE ATTENDING STATUS [facility] 09/12/2024 Unknown Gestational diab etes mellitus in , insulin controlled / O24.414(ICD-10) ALTON NEW Active [facility] 09/12/2024 Unknown Abnormal levels of other serum enzymes / R74.8(ICD-10) BRIAN POE E Active [facility] 09/12/2024 Unknown Other abnormal f indings in specimens from other organs, systems and tissues / R89.8(ICD-10) BRIAN POE E Active [facility] 09/12/2024 Unknown Unspecified mate rnal hypertension, unspecified trimester / O16.9(ICD-10) BRIAN POE E Active [facility] 09/05/2024 Active Follow Up / UNK(Unknown) МАРИЯ LABOY Active [facility] 08/17/2023 Active 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) NA Active [facility] 08/31/2024 Unknown Gestational diab etes mellitus in , unspecified control / O24.419(ICD-10) BIPIN ZHENG Active [facility] 08/31/2024 Unknown Elevated Glucose Tolerance Test / UNK(Unknown) BIPIN ZHENG Active [facility] 08/24/2024 Unknown Palpitations / R00.2(ICD-10) Jaime Davies Active [facility] 2024 Active Supervision of with history of infertility, first trimester / O09.01(ICD-10) NA Active [facility] 03/15/2024 Active examin ation or test, unconfirmed / Z32.00(ICD-10) NA [facility] 03/08/2024 Admitting Diagnosis Unspecified temporomandibular joint disorder, unspecified side / M26.609(ICD-10) KARINA [facility] 03/08/2024 Admitting Diagnosis Allergic rhinitis, unspecified / J30.9(ICD-10) [facility] 03/08/2024 Admitting Diagnosis Postnasal drip / R09.82(ICD-10) [facility] 03/08/2024 Admitting Diagnosis Tinnitus, bilateral / H93.13(ICD-10) RUBY CANO [facility] 03/08/2024 Admitting Diagnosis Otalgia, bilateral / H92.03(ICD-10) RUBY CANO [facility] 02/23/2024 Active PCOS (polycystic ovarian syndrome) / E28.2(ICD-10) Active [facility] 11/22/2023 Active Female infertili ty / N97.9(ICD-10) NA [facility] 10/26/2023 Active Encounter for artificial insemination / Z31.89(ICD-10) ORTEGA MORRISSEY Active [facility] PROCEDURES No Procedure Records Found RESULTS US OB FOLLOW UP TRANSABDOMINAL APPROACH Observed: 10/02/2024 10:39 AM Status: F Source: [facility] EPIC Order Comment: US OB SCAN FO R GROWTH Estimated Date of Delivery: 11/19/24 Gestational Age as of 09/13/2024: 30w3d FINDINGS: A single, live intrauterine is present [...] is 2138 grams (4 pounds, 11 ounces). IMPRESSION: Single, live intrauterine , current sonographic age of 33 weeks and 2 days, with an estimated date of delivery of November 18, 2024 * Estimated Weight (g) by Percentile is based upon an accurate estimated age based on last menstrual period. TRANSCRIBED BY: ELECTRONICALLY SIGNED BY: Navjot Salvador MD PROGRESS Observed: 09/11/2024 8:59 AM Status: COMPLETED Source: [facility] ID: [id number] Author: MIRTA GALLAGHER MD Service: ? Author Type: Physician Type: Progress Notes Filed: 09/11/2024 09:23 Note Text: DATE: 09/11/2024 VIRTUAL VISIT PROGRESS NOTE This is a virtual visit using InSpheroom Video Visit. It required patient-provider interaction for the medical decision making as documented below. I have communicated my name and active licensure. The patient's identity and physical location were verified at the time of this visit. Either the patient or their legal statement services representative has been informed of the risks [...] She is under the care of her TELETYPE OPERATOR in [place] for GDM management. Despite dietary modifications, she [...] under the care of a specialist in [place] and is no longer taking Metformin since [...] the specialist weekly. - Follow up with TELETYPE OPERATOR for regular care and monitoring of GDM. TSH was 2.69 prior to conception but TPO Ab were negative. Mirta Gallagher MD, MPH Endocrinology US OB FOLLOW UP TRANSABDOMINAL APPROACH Observed: 09/06/2024 1:27 PM Status: F Source: [facility] EPIC Order Comment: US OB SCAN FO R GROWTH Estimated Date of Delivery: 11/19/24 Gestational Age as of 08/30/2024: 28w3d EXAM: US OB FOLLOW UP TRANSA BDOMINAL APPROACH HISTORY: Gestational diabetes. COMPARISON: Ob ultrasound [...] II, MD, PHD at 08-Sep-2024 10:22:30 AM [facility] PROGRESS Observed: 09/05/2024 1:47 PM Status: COMPLETED Source: [facility] HNO ID: [id number] Author: МАРИЯ LABOY MD Service: ? Author [...] DATE: September 19, 2024 TIME: 3:28 PM CNOV Observed: 09/05/2024 1:45 PM Status: COMPLETED Source: [facility] Office Visit (OTMNCA) LISSA RIVAS ([id number]) 1995 F Date Time Provider Department 09/05/24 1:45 PM МАРИЯ LABOY [facility] During your visit today, we recorded [...] Encounter Status:Closed by МАРИЯ LABOY on 09/19/24 METANEPHRINES, FREE PLASMA Collected: 0 09/04/2024 12:19 PM Status: F Source: [facility] Order Comment: Specimen Type : BLOOD SPECIMEN Ordering Facility: [facility] Address: [address] [place] [address] TYPE CODE TESTS RESULT OUT OF RANGE REFERENCE UNITS LAB PMET METANEPHRINE , PLASMA 19 12-67 pg/mL Result Comment: Reference Ra nges: Hypertensive adult > or = 18 yrs old: 12-72 pg/mL Normotensive adult > or = 18 yrs old: 12-67 pg/mL Normotensive children < 18 yrs old: 10-95 pg/mL LAB PNMET NORMETANEPHR INE, PLASMA 56 18-101 pg/mL Result Comment: Reference Ra nges: Hypertensive adult > or = 18 yrs old: 24-145 pg/mL Normotensive adult > or = 18 yrs old: 18-101 pg/mL Normotensive children < 18 yrs old: 22-83 pg/mL Methyldopa may cause false elevation of normetanephrine levels in this assay. If patient is on methyldopa, interpret results with caution. Performed By: #### PMETAN ## ## [facility] CLIA [id number] [address] [place] [address] [place] ECH ECHO TRANSTHORACIC Observed: 025 12:39 PM Status: COMPLETED Source: [facility] [address] Echocardiogram Signed Patient: Lissa Rivas MR#: [id number] : 1995 Acct:[id number] Age/Sex: 29 / F ADM Date: 08/24/24 Loc: Room: Type: [facility] Attending Dr: Jaime Davies RN, MSN, ANP-C [...] Signed By: Iveth Ding MD 08/24/24 1835 US OB 14+ WEEKS ANATOMY SCAN Observed: 0 07/05/2024 7:59 AM Status: F Source: [facility] EPIC Order Comment: US OB ANATOMY SINGLE W US OB CERVICAL LENGTH Estimated Date of Delivery: 11/19/24 Gestational Age as of 06/19/2024: 18w1d EXAM: US OB 14+ WEEKS ANATOM Y SCAN HISTORY: anatomy. COMPARISON: OB ultrasound 06/19/2024. [...] II, MD, PHD at 07-Jul-2024 06:23:52 AM [facility] US OB LIMITED 1+ FETUSES Observed: 06/19 10:31 AM Status: F Source: [facility] EPIC Order Comment: US OB PLACENT A W US OB TRANSVAGINAL Estimated Date of Delivery: 11/19/24 Gestational Age as of 06/19/2024: 18w1d EXAM: US OB LIMITED 1+ FETUS ES HISTORY: Complete previa. COMPARISON: OB ultrasound 04/21/2024. [...] II, MD, PHD at 20-Jun-2024 09:56:32 AM [facility] US OB TRANSVAGINAL Observed: 04/21/2024 8:23 AM Status: F Source: [facility] Order Comment: US OB TRANSVA GINAL Patient's last menstrual period was 02/13/2024 (approximate). TITLE OF EXAM: OB Ultrasound : REASON FOR EXAM: Evaluate for size/dates. COMPARISON: [...] signed and approved by the interpreting radiologist. PROGRESS Observed: 2024 4:34 PM Status: COMPLETED Source: [facility] ID: [id number] Author: ORTEGA MORRISSEY APRN.MACHINE SHORTHAND REPORTER Service: ? Author Type: Nurse Practitioner Type: [...] Plan Move on to OB Ortega Morrissey APRN.MACHINE SHORTHAND REPORTER 2024 4:34 PM CNNURSE Observed: 2024 11:10 AM Status: COMPLETED Source: [facility] Nurse Visit (REIAV) LISSA RIVAS ([id number]) 1995 F Date Time Provider Department 04/03/24 11:[address] REJ DAVI During your visit today, we recorded the following information about you: Ortega Morrissey APRN.MACHINE SHORTHAND REPORTER 2024 4:38 PM Signed Lissa Rivas here [...] Plan Move on to OB Ortega Morrissey APRN.MACHINE SHORTHAND REPORTER 2024 4:34 PM Referring Provider: ORTEGA MORRISSEY [[id number]] Allergies As of Date: 2024 (No Known Allergies) Date Reviewed: 02/23/2024 Reviewed by: Paula Hester RN - Fully Assessed Visit Diagnosis:Supervision of with history of infertility, first trimester [O09.01] Order(s):OBSTETRIC ULTRASOUND [facility] [[id number]] Order #: [id number]. #[id number]: 1 Prescriptions as of 2024 - metFORMIN [...] Encounter Status:Closed by JAILENE HOWARD on 04/03/24 CONSULT PROG Observed: 03/20/2024 8:23 AM Status: COMPLETED [facility] [id number] Author: FEDE HAIRSTON MD Service: ? Author [...] Has been spotting for 40+ days Using juanita to track cycles, tried OPK for a few months but never has gotten a positive Treated for Chlamydia at age 16 healthy, non-smoker; no established pregnancies. Irregular period, hirsutism, ultrasound showed PCO appearing ovaries. Obstetric History T0 L0 SAB0 IAB0 Ectopic0 Multiple0 Live Births0 Fertility Evaluations and Treatments: Eval Checklist Results Date Comments HSG Normal 07/29/2023 Hysteroscopy Laparoscopy OPK (Ovulation Predictor Kit) [facility] [place] [facility] 10.91 High 01/04/2023 Saline Ultrasound Semen [...] visit. Either the patient or their legal statement services representative has been informed of the risks and benefits of -- and alternatives to -- treatment through a remote evaluation and consents to proceed with the evaluation remotely. I spent a total of 30 minutes on the date of the service which included preparing to see the patient, [id number] patient care, counseling and educating the patient/family/caregiver, ordering medications, tests, or procedures, communicating results to the patient/family/caregiver, and care coordination (not separately reported). Zachary Branch MD B-HCG SERPL-ACNC Collected: 3:43 PM Status: F Source: [facility] Order Comment: Specimen Type : BLOOD SPECIMEN Ordering Facility: [facility] Address: [address] [place] [address] TYPE CODE TESTS RESULT OUT OF RANGE REFERENCE UNITS LAB 16770-0(LOINC) B-HCG SerPl-aCnc 190.7 High <5.0 mIU/mL Result Comment: QUANTITATIVE HCG NORMAL RANGES Weeks of Gestation (Weeks Since LMP) 3 Weeks (5.8-71.2 mIU/mL) 4 Weeks (9.5-750 mIU/mL) 5 Weeks (217-7138 mIU/mL) 6 Weeks (158-00435 mIU/mL) 7 Weeks (3697-263587 mIU/mL) 8 Weeks (51593-069373 mIU/mL) 9 Weeks (27869-419836 mIU/mL) 10 Weeks (11521-878241 mIU/mL) 12 Weeks (48253-931317 mIU/mL) Referenced to 4th IS of [facility] Performed By: #### 27870-9 # ### [facility] CLIA [id number] [address] [place], [place] [address] [address] [place] PROGRESS Observed: 03/17/2024 1:56 PM Status: COMPLETED Source: [facility] HNO ID: [id number] Author: ORTEGA MORRISSEY APRN.JORDAN Service: ? Author Type: Nurse Practitioner Type: Progress Notes Filed: 03/17/2024 14:22 Note Text: [facility] New SERVICE DATE: 03/17/2024 SERVICE TIME: 1:56 PM NAME: Lissa Rivas VIRTUAL VISIT PROGRESS NOTE This is a virtual visit. It required patient-provider interaction for the medical decision making as documented below. Patient name and birthday verified: Yes Location of patient: [place] Persons Present: patient I have communicated my name and active licensure. The patient's identity and physical location were verified at the time of this visit. Either the patient or their legal statement services representative has been informed of the risks [...] which included preparing to see the patient, [id number] patient care, completing clinical documentation, obtaining and/or [...] open slot. Call to patient needed: no B-HCG SERPL-ACNC Collected: 4 3:44 PM Status: F Source: [facility] Order Comment: Specimen Type : BLOOD SPECIMEN Ordering Facility: [facility] Address: [address] [place] [address] TYPE CODE TESTS RESULT OUT OF RANGE REFERENCE UNITS LAB 37948-7([facility]) B-HCG SerPl-aCnc 87.6 High <5.0 mIU/mL Result Comment: QUANTITATIVE HCG NORMAL RANGES Weeks of Gestation (Weeks Since LMP) 3 Weeks (5.8-71.2 mIU/mL) 4 Weeks (9.5-750 mIU/mL) 5 Weeks (217-7138 mIU/mL) 6 Weeks (158-67617 mIU/mL) 7 Weeks (3697-538286 mIU/mL) 8 Weeks (23791-174989 mIU/mL) 9 Weeks (88902-579663 mIU/mL) 10 Weeks (58958-272699 mIU/mL) 12 Weeks (34217-045960 mIU/mL) Referenced to 4th IS of [facility] Performed By: #### 94671-3 # ### [facility] CLIA [id number] [address] [place], [place] [address] [place] [address] [place] B-HCG SERPL-ACNC Collected: 3:37 PM Status: F Source: [facility] Order Comment: Specimen Type : BLOOD SPECIMEN Ordering Facility: [facility] Address: [address] [place] [address] TYPE CODE TESTS RESULT OUT OF RANGE REFERENCE UNITS LAB 75851-4(LOINC) B-HCG SerPl-aCnc 21.9 High <5.0 mIU/mL Result Comment: QUANTITATIVE HCG NORMAL RANGES Weeks of Gestation (Weeks Since LMP) 3 Weeks (5.8-71.2 mIU/mL) 4 Weeks (9.5-750 mIU/mL) 5 Weeks (217-7138 mIU/mL) 6 Weeks (158-31756 mIU/mL) 7 Weeks (3697-584633 mIU/mL) 8 Weeks (48448-031227 mIU/mL) 9 Weeks (50848-622588 mIU/mL) 10 Weeks (30566-383198 mIU/mL) 12 Weeks (74017-580105 mIU/mL) Referenced to 4th IS of [facility] Performed By: #### 08774-1 # ### [facility] CLIA [id number] [address] [place] [address] OF [facility] CNPN Observed: 03/13/2024 12:00 AM Status: COMPLETED Source: [facility] Telephone (REIBD) LISSA RIVAS ([id number]) 1995 F Date Time Provider Department 03/13/24 FEDE HAIRSTON During your visit today, we recorded the following information about you: Ayanna Wise 03/13/2024 11:56 AM Signed Patient states she skipped this month and has +hpt, please follow up with patient. Ortega Morrissey APRN.JORDAN 03/13/2024 1:37 PM Signed Patient calls with [...] ordered: HCG x2 FYI Dr. Bill Morrissey APRN.MACHINE SHORTHAND REPORTER March 13, 2024 1:37 PM Allergies As of Date: 03/13/2024 (No Known Allergies) Date Reviewed: 02/23/2024 Reviewed by: Paula Hester RN - Fully Assessed Reason for Visit: +hpt today/lmp 02/12 skipped treatment this month [Other] Primary Visit Diagnosis:Supervision of with history of infertility, first trimester [O09.01] Other Visit Diagnosis: examination or test, unconfirmed [Z32.00] Order(s):HCG QUANTITATIVE [SQHCGQT] Order #: [id number] STANDING Prescriptions as of 03/13/2024 - metFORMIN [...] Encounter Status:Closed by ORTEGA MORRISSEY on 03/13/24 PROGEST SERPL-MCNC Collected: 1:56 PM Status: F Source: [facility] Order Comment: Specimen Type : BLOOD SPECIMEN Ordering Facility: [facility] Address: [address] [place] [address] TYPE CODE TESTS RESULT OUT OF RANGE REFERENCE UNITS LAB 2839-9(LOINC) Progest SerPl-mCnc 17.8 See comment ng/mL Result Comment: Menstrual Cy el Progesterone Reference Ranges: Follicular: <1.0 ng/mL Ovulation: <12.1 ng/mL Luteal: 1.8 to 23.9 ng/mL. Progesterone Reference Ranges vary by gestational period: First Trimester: 11.0 to 44.3 ng/mL Second Trimester: 25.4 to 83.3 ng/mL Third Trimester: 58.7 to 214 ng/mL Post menopausal Progesterone: <0.5 ng/mL Reference: 1. Progesterone (Progesterone III) [package insert V 1.0 German]. [facility], [place], [place]. December 2014. Performed By: #### 2839-9 ## ## [facility] CLIA [id number] [address] [place] [address] OF [facility] CNPN Observed: 02/28/2024 12:00 AM Status: COMPLETED Source: [facility] Telephone (REIBD) LISSA RIVAS ([id number]) 1995 F Date Time Provider Department 02/28/24 FEDE HAIRSTON During your visit today, we recorded the following information about you: Joanna Garces 02/28/2024 8:23 AM Signed Pt is not financially clear yet should she still schedule it after she pays Ortega Morrissey APRN.MACHINE SHORTHAND REPORTER 02/28/2024 11:54 AM Signed Spoke with Thao, [...] cycle day 3-7 Authorizing Provider: ORTEGA MORRISSEY APRN.MACHINE SHORTHAND REPORTER February 28, 2024 11:54 AM Allergies As of Date: 02/28/2024 (No Known Allergies) Date Reviewed: 02/23/2024 Reviewed by: Paula Hester RN - Fully Assessed Reason for Visit: ortega pt is not cleared for us should she still have it do [Other] Primary Visit Diagnosis:Female infertility [N97.9] Order(s):PROGESTERONE [SQPROG] Order #: [id number] FUTURE letrozole (FEMARA) 2.5 mg tabletTake 3 [...] Encounter Status:Closed by ORTEGA MORRISSEY on 02/28/24 PROGRESS Observed: 02/23/2024 1:54 PM Status: COMPLETED Source: [facility] ID: [id number] Author: ORTEGA MORRISSEY APRN.CNP Service: ? Author Type: Nurse Practitioner Type: Progress Notes Filed: 02/23/2024 13:56 Note Text: Lissa Rivas is here today for a midcycle scan. Lead follicle: 11 Plan: repeat scan 02/24 Ortega Morrissey APRN.MACHINE SHORTHAND REPORTER February 23, 2024 1:54 PM Please schedule the patient for the following- Location: [facility] Provider: Nurse Visit type: midcycle Reason for visit/appointment notes: midcycle Date: 02/24 Time (requested): 0730 If slot is full, please schedule the closest open slot. Call to patient needed: no COMP METAB 1999 PNL SERPL Collected: 7:58 AM Status: F Source: [facility] Order Comment: Specimen Type : BLOOD SPECIMEN Ordering Facility: [facility] Address: [address] [place] [address] [place] [address] TYPE CODE TESTS RESULT OUT OF RANGE REFERENCE UNITS LAB 2885-2(LOINC) Prot SerPl-mCnc 7.3 6.3-8.0 g/dL LAB 1751-7(LOINC) Albumin SerPl-mCnc 4.5 3.9-4.9 g/dL LAB 95902-8(LOINC) Calcium SerPl-mCnc 9.3 8.5-10.2 mg/dL LAB 1975-2(LOINC) Bilirub SerPl-mCnc 0.2 0.2-1.3 mg/dL LAB 6768-6(LOINC) ALP SerPl-cCnc 65 34-123 U/L LAB 1920-8(LOINC) AST SerPl-cCnc 21 13-35 U/L LAB 1742-6(LOINC) ALT SerPl-cCnc 41 High 7-38 U/L LAB 2345-7(LOINC) Glucose SerPl-mCnc 98 74-99 mg/dL Result Comment: The [place] [employer] (ADA) provides guidance for cutoff [...] Standards of Medical Care in Diabetes 2016, [place] [employer] Association. Diabetes Care. 2016.39(Suppl 1). LAB 3094-0(LOINC) BUN SerPl-mCnc 11 7-21 mg/ dL LAB 2160-0(LOINC) Creat SerPl-mCnc 0.78 0.58-0.96 mg/dL LAB 2951-2(LOINC) Sodium SerPl-sCnc 141 136-144 mmol/L LAB 2823-3(LOINC) Potassium SerPl-sCnc 4.3 3.7-5.1 mmol/L LAB 2075-0(LOINC) Chloride SerPl-sCnc 105 98-107 mmol/L LAB 2028-9(LOINC) CO2 SerPl-sCnc 24 22-30 mmo l/L LAB 30050-8(LOINC) Anion Gap SerPl-sCnc 12 8-15 mmol/L LAB 49123-5(LOINC) Creatinine + eGFR Pnl SerPlBld 106 >=60 mL/min/1. 73m??? Result Comment: Estimated Gl omerular Filtration Rate (eGFR) is calculated using the 2020 CKD-EPI creatinine equation. This equation utilizes serum creatinine, sex, and age as parameters. The creatinine assay has traceable calibration to isotope dilution-mass spectrometry. Refer to KDIGO guidelines for clinical interpretation. In patients with unstable renal function, e.g. those with acute kidney injury, the eGFR may not accurately reflect actual GFR. Performed By: #### 27312-8 # ### [facility] CLIA [id number] [place], [place] [id number] [place] [address] STATES OF [facility] DEPRECATED HGB A1C BLD Collected: 02/22 7:58 AM Status: F Source: [facility] Order Comment: Specimen Type : BLOOD SPECIMEN Ordering Facility: [facility] Address: [address] [place] [address] TYPE CODE TESTS RESULT OUT OF RANGE REFERENCE UNITS LAB 4548-4([facility]) HbA1c MFr Bld 5.5 4.3-5.6 % Result Comment: [place] [employer] guidelines indicate that patients with HgbA1c in the range 5.7-6.4% are at increased risk for development of diabetes, and intervention by lifestyle modification may be beneficial. HgbA1c greater or equal to 6.5% is considered diagnostic of diabetes. LAB 69832-5(LOINC) Est. average glucose Bld gHb Est-mCnc 111 mg/dL Result Comment: eAG: (Estima kia average glucose) is a calculated value from HgbA1c and is statement services representative of the average blood glucose level in the last 2-3 month period. Performed By: #### 66712-3 # ### [facility] CLIA [id number] [address] [place] [address] VIT B12 SERPL-MCNC Collected: 02/23/2024 7:58 AM Sta tus: F Source: [facility] Order Comment: Specimen Type : BLOOD SPECIMEN Ordering Facility: [facility] Address: [address] [place] [address] TYPE CODE TESTS RESULT OUT OF RANGE REFERENCE UNITS LAB 2131-11(LOINC) Vit B12 SerPl-mCnc 821 293-3347 pg/mL Performed By: #### 2132-9 ## ## [facility] CLIA [id number] 25([place])D3 SERPL-MCNC Collected: 02/23/20 7:58 AM Status: F Source: [facility] Order Comment: Specimen Type : BLOOD SPECIMEN Ordering Facility: [facility] Address: [address] [place] [address] TYPE CODE TESTS RESULT OUT OF RANGE REFERENCE UNITS LAB 1988-(LOINC) 25(OH)D3 SerPl-mCnc 49.3 31.0-80.0 ng/mL Result Comment: Classificati on of 25 [place] Vitamin D status: Deficiency/Insufficiency: < or = 30 ng/ml. Sufficiency/Optimal Levels: 31-80 ng/mL Toxicity: > 100 ng/mL. Test performed by chemiluminescent immunoassay. Performed By: #### 1988-05 ## ## [facility] CLIA [id number] [address] [place] [address] OF [place] CBC PNL BLD AUTO Collected: 02/23/2024 7:58 AM Statu s: F Source: [facility] Order Comment: Specimen Type : BLOOD SPECIMEN Ordering Facility: [facility] Address: [address] [place] [address] TYPE CODE TESTS RESULT OUT OF RANGE REFERENCE UNITS LAB 6690-2(LOINC) WBC # Bld Auto 8.81 3.70-11.00 k/uL LAB 789-8(LOINC) RBC # Bld Auto 4.34 3.90-5.20 m/uL LAB 718-7(LOINC) Hgb Bld-mCnc 13.5 11.5-15.5 g/dL LAB 4544-3(LOINC) Hct VFr Bld Auto 40.6 36.0-46.0 % LAB 787-2(LOINC) MCV RBC Auto 93.5 80.0-100.0 fL LAB 785-6(LOINC) MCH RBC Qn Auto 31.1 26.0-34.0 pg LAB 786-4(LOINC) MCHC RBC Auto-mCnc 33.3 30.5-36.0 g/dL LAB 59380-4(LOINC) RDW RBC-Rto 12.4 11.5-15.0 % LAB 777-3(LOINC) Platelet # Bld Auto 261 150-400 k/uL LAB 23378-4(LOINC) PMV Bld Auto 10.6 9.0-12.7 fL LAB 771-6(LOINC) nRBC # Bld Auto <0.01 <0.01 k/uL Performed By: #### 49419-3 # ### [facility] CLIA [id number] [facility]. [address] PROGRESS Observed: 02/23/2024 7:46 AM Status: COMPLETED Source: [facility] HNO ID: [id number] Author: PAULA HESTER RN Service: ? Author [...] Hester RN February 23, 2024 7:46 AM CNNURSE Observed: 02/23/2024 7:00 AM Status: COMPLETED Source: [facility] Nurse Visit (REIAV) LISSA RIVAS ([id number]) 1995 F Date Time Provider Department 02/23/24 [...] schedule the patient for the following- Location: [facility] Provider: Nurse Visit type: midcycle Reason for visit/appointment notes: midcycle Date: 02/24 Time (requested): 0730 If slot is full, please schedule the closest open slot. Call to patient needed: Ortega Martinez APRN.CNP 02/23/2024 4:03 PM Signed Addended by: ORTEGA MORRISSEY on: 02/23/2024 04:03 PM Modules accepted: Orders Referring Provider: ORTEGA MORRISSEY [[id number]] Allergies As of Date: 02/23/2024 (No Known Allergies) Date Reviewed: 02/23/2024 Reviewed by: Paula Hester RN - Fully Assessed Reason for Visit: Infertility [285] Visit Diagnosis:Female infertility [N97.9] Order(s):FOLLICULAR US WHI [[id number]] Order #: [id number]. #:[id number]: [id number] FOLLICULAR US WHI [] Order #: [id number]: 1 FUTURE Prescriptions as of 02/23/2024 - [...] Encounter Status:Closed by VANESSA VO on 02/23/24 CNPN Observed: 02/21/2024 12:00 AM Status: COMPLETED Source: [facility] Telephone (REIBD) LISSA RIVAS ([id number]) 1995 F Date Time Provider Department 02/21/24 [...] Encounter Status:Closed by ORTEGA MORRISSEY on 02/21/24 Observed: 02/17/2024 10:05 AM Status: COMPLETED Source: [facility] ID: [id number] Author: FEDE HAIRSTON MD Service: ? Author [...] visit. Either the patient or their legal statement services representative has been informed of the risks and benefits of -- and alternatives to -- treatment through a remote evaluation and consents to proceed with the evaluation remotely. I spent a total of 30 minutes on the date of the service which included preparing to see the patient, ijrw-zy-lhhr patient care, counseling and educating the patient/family/caregiver, ordering medications, tests, or procedures, communicating results to the patient/family/caregiver, and care coordination (not separately reported). Kim Khan MD CNPN Observed: 02/15/2024 12:00 AM Status: COMPLETED Source: [facility] Telephone (REIBD) LISSA RIVAS ([id number]) 1995 F Date Time Provider Department 02/15/24 FEDE HAIRSTON During your visit today, we recorded the following information about you: Kira Ayanna Calixto 02/15/2024 11:37 AM Signed Patient states this [...] patient for the following- Location: [facility] Provider: nurse Visit type: midcycle Reason for visit/appointment notes: midcycle Date: 02/22 Time (requested): 0700 If slot is full, please schedule the closest open slot. Call to patient needed: no Allergies As of Date: 02/15/2024 (No Known Allergies) Date Reviewed: 11/22/2023 Reviewed by: Mindzora, Ortega, INSULATION BOARD HEAD SAW OPERATOR.MACHINE SHORTHAND REPORTER - Fully Assessed Reason for Visit: lmp 02/13 for iui - ovulation tracking [Other] Primary Visit Diagnosis:Female infertility [N97.9] Order(s):letrozole (FEMARA) 2.5 mg tabletTake 2 tablets by mouth once daily for 5 days. Menstrual cycle day 3-7Disp: 10 tabletRfl: 2 FOLLICULAR US [facility] [[id number]] Order #: [id number]: 1 FUTURE Prescriptions as of 02/15/2024 - [...] Encounter Status:Closed by ORTEGA MORRISSEY on 02/15/24 MR BRAIN W AND WO CONTRAST (ROUTINE) Observed: 01/24/2024 3:20 PM Status: F Source: [facility] EPIC Order Comment: Patient is wo rking with reproductive specialist at [facility] and needs MRI done within the next 13 days. If [facility] not able to accommodate her, anywhere that is able to schedule within that timeframe would be fine. MR - MRI BRAIN W WO INDICATION: [...] Electronically Signed Nabil Roa D.O. 2024-01-24 15:32:54 LAURA Observed: 01/14/2024 12:00 AM Status: COMPLETED Source: [facility] Telephone (REIBD) LISSA RIVAS ([id number]) 1995 F Date Time Provider Department 01/14/24 ORTEGA MORRISSEY During your visit today, we recorded the following information about you: Keren Carcamo 01/14/2024 9:04 AM Signed Pt started cycle 01/12 and would like to discuss plan for scheduling iui Ortega Morrissey APRN.MACHINE SHORTHAND REPORTER 01/14/2024 4:18 PM Signed Spoke with Lisas, She is planning to [...] Encounter Status:Closed by ORTEGA MORRISSEY on 01/14/24 PROCEDURE Observed: 12/31/2023 10:25 AM Status: COMPLETED Source: [facility] ID: [id number] Author: ORTEGA MORRISSEY APRN.CNP Service: ? Author [...] Cycle Day: 20 Last menstrual period: 12/12/2023 [place] Protocol: UNIVERSAL PROTOCOL / SAFETY CHECKLIST Procedure [...] APRN.CNP IUI IUI Date: 12/31/23 Partner's Name: Chelsy Rivas IUI Time: 10:16 AM EDT Partner's [...] DATE: December 31, 2023 TIME: 10:25 AM CNOV Observed: 12/31/2023 10:00 AM Status: COMPLETED Source: [facility] Office Visit (REIAV) LISSA RIVAS ([id number]) 1995 F Date Time Provider Department 12/31/23 10:00 AM ORTEGA MORRISSEY During your visit today, we recorded the following information about you: Last Period 12/12/23 Domenica Coon MA 12/31/2023 10:07 AM Signed Corporate Fitness Program Coordinator offered: Patient declines. Ortega Morrissey APRN.CNP [...] Cycle Day: 20 Last menstrual period: 12/12/2023 [place] Protocol: UNIVERSAL PROTOCOL / SAFETY CHECKLIST Procedure [...] APRN.CNP IUI IUI Date: 12/31/23 Partner's Name: Chelsy Rivas IUI Time: 10:16 AM EDT Partner's [...] Dec 31, 2023 10:07 AM Status: Signed Corporate Fitness Program Coordinator offered: Patient declines. Encounter Status:Closed by ORTEGA MORRISSEY on 12/31/23 PROGRESS Observed: 12/21/2023 2:32 PM Status: COMPLETED [facility] [id number] Author: ROBIN GREWAL RN Service: ? Author Type: Registered Nurse Type: Progress Notes Filed: 12/21/2023 14:32 Note Text: pt using LH surge strips and will call to irvin Grewal RN December 21, 2023 2:32 PM PROGRESS Observed: 12/21/2023 12:37 PM Status: COMPLETED Source: [facility] HNO ID: [id number] Author: FEDE HAIRSTON MD Service: ? Author [...] plan provided to patient via a Fertility cruise staff member. Kim Khan MD [facility] Observed: 12/21/2023 8:30 AM Status: COMPLETED Source: [facility] Nurse Visit (REIAV) LISSA RIVAS ([id number]) 1995 F Date Time Provider Department 12/21/23 [...] plan provided to patient via a Fertility cruise staff member. MD Darrell Branch Laura, RN 12/21/2023 2:32 PM Signed pt using LH surge strips and will call to irvin IUI Robin Grewal RN December 21, 2023 2:32 PM Referring Provider: ORTEGA MORRISSEY [[id number]] Allergies As of Date: 12/21/2023 (No Known Allergies) Date Reviewed: 11/22/2023 Reviewed by: Ortega Morrissey APRN.MACHINE SHORTHAND REPORTER - Fully Assessed Visit Diagnosis:Female infertility [N97.9] Order(s):FOLLICULAR US [facility] [[id number]] Order #: [id number]. #:[id number]: [id number] Prescriptions as of 12/21/2023 - progesterone [...] Encounter Status:Closed by ROBIN GREWAL on 12/21/23 LAURA Observed: 12/13/2023 12:00 AM Status: COMPLETED Source: [facility] Telephone (REIBD) LISSA RIVAS ([id number]) 1995 F Date Time Provider Department 12/13/23 FEDE HAIRSTON During your visit today, we recorded the following information about you: Ortega Morrissey APRN.CNP 12/13/2023 4:49 PM Signed LMP 12/11 Plan: Let 5mg, trigger, IUI#2 Flowsheet/episode created Orteag Morrissey APRN.CNP December 13, 2023 4:42 PM [...] APRN.CNP - Fully Assessed Reason for Visit: [facility] 12/12/23/ set up monitored cycle [Other] Patient Update [1234] Primary Visit Diagnosis:Female infertility [N97.9] Order(s):FOLLICULAR US [facility] [[id number]] Order #: [id number]: 1 FUTURE Choriogonadotropin Ole,HumRec (OVIDREL) 250 mcg/0.5 mL syrgInject 250 mcg subcutaneously one time only for 1 dose.Disp: 0.5 mLRfl: 1 Prescriptions as of 12/13/2023 - Choriogonadotropin Ole,HumRec (OVIDREL) 250 mcg/0.5 mL syrg Inject 250 [...] Discontinued During This Encounter Prescriptions - Choriogonadotropin Ole,HumRec (OVIDREL) 250 mcg/0.5 mL syrg (Discontinued) Inject 250 mcg subcutaneously one time only for 1 dose. Encounter Status:Closed by ORTEGA MORRISSEY on 12/13/23 CNOV Observed: 11/28/2023 11:00 AM Status: COMPLETED Source: [facility] Office Visit (REIBD) LISSA RIVAS ([id number]) 1995 F Date Time Provider Department 11/28/23 [...] Cycle Day: 13 Last menstrual period: 11/12/2023 [place] Protocol: UNIVERSAL PROTOCOL / SAFETY CHECKLIST Procedure [...] MD IUI IUI Date: 11/28/23 Partner's Name: Chelsy Rivas Partner's : 08/07/1993 Partner's Partner's Ethnicity/Race: NOT or Patient's LMP: 8/16/24 Cycle Day: 13 Pre-Procedure Diagnosis: Infertility Post-Procedure [...] # 44.8 million Referring Provider: DESHAWN RIOJAS [[id number]] Allergies As of Date: 11/28/2023 (No Known Allergies) Date Reviewed: 11/22/2023 Reviewed by: Ortega Morrissey APRN.MACHINE SHORTHAND REPORTER - Fully Assessed Primary Visit Diagnosis:Female infertility [...] Encounter Status:Closed by DESHAWN RIOJAS on 11/28/23 PROGRESS Observed: 11/28/2023 10:59 AM Status: COMPLETED Source: [facility] HNO ID: [id number] Author: EVANGELINA PAINTER, ? Service: ? Author Type: Dental Hygienist Mobile Coordinator Type: Progress Notes Filed: 11/28/2023 11:00 Note Text: IUI Pre: 72 M/ml, 63% Post: 73 M/ml, 88% Insem # 44.8 million PROCEDURE Observed: 11/28/2023 10:52 AM Status: COMPLETED Source: [facility] HNO ID: [id number] Author: DESHAWN RIOJAS MD Service: ? Author [...] Cycle Day: 13 Last menstrual period: 11/12/2023 [place] Protocol: UNIVERSAL PROTOCOL / SAFETY CHECKLIST Procedure [...] MD IUI IUI Date: 11/28/23 Partner's Name: Chelsy Rivas Partner's : 08/07/1993 Partner's Partner's Ethnicity/Race: [...] DATE: November 28, 2023 TIME: 10:52 AM PROGRESS Observed: 11/28/2023 10:48 AM Status: COMPLETED Source: [facility] HNO ID: [id number] Author: EVANGELINA PAINTER, ? Service: ? Author Type: Dental Hygienist Mobile Coordinator Type: Progress Notes Filed: 11/28/2023 10:54 Note Text: IUI specimen released to provider Evangelina Painter November 28, 2023 10:48 AM PROGRESS Observed: 11/22/2023 2:33 PM Status: COMPLETED Source: [facility] HNO ID: [id number] Author: ORTEGA MORRISSEY APRN.CNP Service: ? Author [...] and birthday verified: Yes Location of patient: [place] Persons Present: patient I have communicated my name and active licensure. The patient's identity and physical location were verified at the time of this visit. Either the patient or their legal statement services representative has been informed of the risks [...] Once starting progesterone had intense mood swings/irritability [place] heart was beating slower than normal but [...] will schedule IUI as instructed Ortega Morrissey APRN.MACHINE SHORTHAND REPORTER November 22, 2023 2:33 PM I spent a total of 20 minutes on the date of the service which included preparing to see the patient, hxej-kw-exgj patient care, completing clinical documentation, obtaining and/or [...] grammatical and typographical errors missed in proofreading. [facility] Collected: 4 9:51 AM Status: F Source: [facility] Order Comment: Specimen Type : BLOOD SPECIMEN Ordering Facility: [facility] Address: [address] [place] [address] TYPE CODE TESTS RESULT OUT OF RANGE REFERENCE UNITS LAB 62720-6(LOINC) LH SerPl-aCnc 5.1 See comment mIU/mL Result Comment: Reference ra nge: Follicular: 2.4-12.6 mIU/mL Midcycle: 14.0-95.6 mIU/mL Luteal: 1.0-11.4 mIU/mL Post Kelsey: 7.7-58.5 mIU/mL Performed By: #### 2839-9, 1 0501-5 #### [facility] CLIA [id number] PROGEST SERPL-MCNC Collected: 9:51 AM Status: F Source: [facility] Order Comment: Specimen Type : BLOOD SPECIMEN Ordering Facility: [facility] Address: [address] [place] [address] TYPE CODE TESTS RESULT OUT OF RANGE REFERENCE UNITS LAB 2839-9(LOINC) Progest SerPl-mCnc 0.3 See comment ng/mL Result Comment: Menstrual Cy el Progesterone Reference Ranges: Follicular: <1.0 ng/mL Ovulation: <12.1 ng/mL Luteal: 1.8 to 23.9 ng/mL. Progesterone Reference Ranges vary by gestational period: First Trimester: 11.0 to 44.3 ng/mL Second Trimester: 25.4 to 83.3 ng/mL Third Trimester: 58.7 to 214 ng/mL Post menopausal Progesterone: <0.5 ng/mL Reference: 1. Progesterone (Progesterone III) [package insert V 1.0 German]. [facility], [place], [place]. December 2014. Performed By: #### 2839-9, 1 0501-5 #### [facility] CLIA [id number] [place] [address] [facility] PROGRESS Observed: 11/22/2023 8:08 AM Status: COMPLETED Source: [facility] HNO ID: [id number] Author: ERMA DONIS RN Service: ? Author [...] called patient. She will drive back to [employer] now to get done. Erma Donis RN November 22, 2023 8:45 AM 11/22/2023 11 trigger 25+<10mm 21.2, 25+<10mm 5.6mm tri p4=0.3 lh=5.1 JR 11/23/2023 12 11/24/2023 13 IUI RN called patient, name and verified. Plan given for midcycle per physician, see flowsheet for details. [employer] message sent. Medications reviewed and verified, instructions given. Patient denies any questions or concerns. Erma Donis RN November 22, 2023 12:53 PM CNNURSE Observed: 11/22/2023 7:15 AM Status: COMPLETED Source: [facility] Nurse Visit (REIAV) LISSA RIVAS ([id number]) 1995 F Date Time Provider Department 11/22/23 7:15 AM NURSE GAY[facility]RI [facility] During your visit today, we recorded [...] called patient. She will drive back to [facility] [facility] now to get done. Erma Donis RN November 22, 2023 8:45 AM 11/22/2023 11 trigger 25+<10mm 21.2, 25+<10mm 5.6mm tri p4=0.3 lh=5.1 11/23/2023 12 11/24/2023 13 IUI RN called patient, name and verified. Plan given for midcycle per physician, see flowsheet for details. [employer] message sent. Medications reviewed and verified, instructions given. Patient denies any questions or concerns. Erma Donis RN November 22, 2023 12:53 PM Referring Provider: ORTEGA MORRISSEY [[id number]] Allergies As of Date: 11/22/2023 (No Known Allergies) Date Reviewed: 11/22/2023 Reviewed by: Ortega Morrissey APRN.MACHINE SHORTHAND REPORTER - Fully Assessed Visit Diagnosis:Female infertility [N97.9] Order(s):FOLLICULAR [facility] [[id number]] Order #: [id number]. 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] 08/17/2023 Encounter Status:Closed by JAIELNE HOWARD on 11/22/23 JORDANN Observed: 11/12/2023 12:00 AM Status: COMPLETED Source: [facility] Telephone (REIBD) LISSA RIVAS ([id number]) 1995 F Date Time Provider Department 11/12/23 [...] Other Visit Diagnosis:Female infertility [N97.9] Order(s):FOLLICULAR US [facility] [[id number]] Order #: [id number]: 1 FUTURE Prescriptions as of 11/15/2023 - [...] Encounter Status:Closed by ORTEGA MORRISSEY on 11/15/23 PROCEDURE Observed: 10/26/2023 11:36 AM Status: COMPLETED Source: [facility] ID: [id number] Author: ORTEGA MORRISSEY APRN.CNP Service: ? Author [...] Cycle Day: 15 Last menstrual period: 10/12/2023 [place] Protocol: UNIVERSAL PROTOCOL / SAFETY CHECKLIST Procedure [...] APRN.CNP IUI IUI Date: 10/26/23 Partner's Name: Chelsy Rivas IUI Time: 11:25 AM EDT Partner's [...] DATE: October 26, 2023 TIME: 11:36 AM CNOV Observed: 10/26/2023 11:00 AM Status: COMPLETED Source: [facility] Office Visit (REIAV) LISSA RIVAS ([id number]) 1995 F Date Time Provider Department 10/26/23 [...] Cycle Day: 15 Last menstrual period: 10/12/2023 [place] Protocol: UNIVERSAL PROTOCOL / SAFETY CHECKLIST Procedure [...] APRN.CNP IUI IUI Date: 10/26/23 Partner's Name: Chelsy Rivas IUI Time: 11:25 AM EDT Partner's [...] TIME: 11:36 AM Referring Provider: ORTEGA MORRISSEY [[id number]] Allergies As of Date: 10/26/2023 (No Known [...] Encounter Status:Closed by ORTEGA MORRISSEY on 10/26/23 PROGRESS Observed: 10/22/2023 11:02 PM Status: COMPLETED Source: [facility] HNO ID: [id number] Author: AYANNA TREVIZO MD Service: ? Author Type: Physician Type: Progress Notes Filed: 10/22/2023 23:02 Note Text: GAYATHRI Attending Physician Note: Ultrasound and lab results reviewed. Based on review of ultrasound and lab results, medication dose and follow up date plans provided. See cycle flowsheet for dosing details. Ayanna Trevizo MD, FLAC[place] PROGRESS Observed: 10/22/2023 7:25 AM Status: COMPLETED Source: [facility] HNO ID: [id number] Author: ERMA DONIS RN Service: ? Author Type: Registered Nurse Type: Progress Notes Filed: 10/22/2023 13:41 Note Text: Lissa Rivas is here today for a midcycle scan. Lead follicle: 14 Erma Donis RN October 22, 2023 7:25 AM RN called patient, name and verified. Plan given for midcycle per physician, see flowsheet for details. [employer] message sent. Medications reviewed and verified, instructions given. Patient denies any questions or concerns. Erma Donis RN October 22, 2023 1:38 PM CNNURSE Observed: 10/22/2023 7:00 AM Status: COMPLETED Source: [facility] Nurse Visit (REIAV) LISSA RIVAS ([id number]) 1995 F Date Time Provider Department 10/22/23 7:00 AM NURSE GAYATHRI [facility] During your visit today, we recorded the following information about you: Erma Donis RN 10/22/2023 1:41 PM Signed Lissa Rivas is here today for a midcycle scan. Lead follicle: 14 Erma Donis RN October 22, 2023 7:25 AM RN called patient, name and verified. Plan given for midcycle per physician, see flowsheet for details. [employer] message sent. Medications reviewed and verified, instructions [...] Trevizo MD, FLACO Referring Provider: ORTEGA MORRISSEY [[id number]] Allergies As of Date: 10/22/2023 (No Known Allergies) Date Reviewed: 08/18/2023 Reviewed by: Domenica Coon MA - Fully Assessed Visit Diagnosis:Female infertility [N97.9] Order(s):FOLLICULAR US [facility] [[id number]] Order #: [id number]. #:[id number]: 1 Prescriptions as of 10/22/2023 - medroxyPROGESTERone [...] Encounter Status:Closed by ERMA DONIS on 10/22/23 LAURA Observed: 10/20/2023 12:00 AM Status: COMPLETED Source: [facility] Telephone (REIBD) LISSA RIVAS ([id number]) 1995 F Date Time Provider Department 10/20/23 SELF REIBD During your visit today, we recorded the following information about you: Keren Carcamo 10/20/2023 2:26 PM Signed Pts pharmacy called and would like to know when she needs to order trigger shot Ani Stovall APRN.JORDAN 10/20/2023 3:11 PM Signed patient instructed to order trigger now so that she has it by Wednesday Ani Stovall APRN.MACHINE SHORTHAND REPORTER October 20, 2023 3:10 PM Allergies As [...] Encounter Status:Closed by ANI STOVALL on 10/20/23 CNPN Observed: 10/12/2023 12:00 AM Status: COMPLETED Source: [facility] Telephone (REIBD) LISSA RIVAS ([id number]) 1995 F Date Time Provider Department 10/12/23 [...] schedule the patient for the following- Location: [facility] Provider: nurse Visit type: mid cycle Reason for visit/appointment notes: mid cycle non ivf Date: 10-22-23 Time (requested): 0700 If slot is full, please schedule the closest open slot. Call to patient needed: no Ortega Morrissey APRN.CNP 10/12/2023 4:10 PM Signed The following approved medication requests have been transmitted electronically. Requested Prescriptions Signed Prescriptions Disp Refills Choriogonadotropin Ole,HumRec (OVIDREL) 250 mcg/0.5 mL syrg 0.5 mL 1 Sig: Inject 250 mcg subcutaneously one time only for 1 dose. Authorizing Provider: ORTEGA MORRISSEY APRN.CNP October 12, 2023 4:10 PM Allergies As of Date: 10/12/2023 (No Known Allergies) Date Reviewed: 08/18/2023 Reviewed by: Domenica Coon MA - Fully Assessed Reason for Visit: Ortega bowens today/re us day 11-13 for iui [Other] Primary Visit Diagnosis:Procreation management investigation and testing [Z31.49] Order(s):Choriogonadotropin Ole,HumRec (OVIDREL) 250 mcg/0.5 mL syrgInject 250 mcg subcutaneously one time only for 1 dose.Disp: 0.5 mLRfl: 1 Prescriptions as of 10/12/2023 - Choriogonadotropin Ole,HumRec (OVIDREL) 250 mcg/0.5 mL syrg Inject 250 [...] Encounter Status:Closed by ORTEGA MORRISSEY on 10/12/23 ALLERGIES DATE TYPE / CODE NAME / CODE REACTION SEVERITY SOURCE 06/25/2019 Drug Allergy/5011210 02(SNOMED CT) No Known Allergies/O056416821 (RXNORM) Unknown [facility] Drug Class/180054332 (SNOMED CT) NO KNOWN ALLERGIES [facility] SYSTEMIC/398027 006(SNOMED CT) NO KNOWN ALLERGIES [facility] Drug Class/522983006 (SNOMED CT) NO KNOWN ALLERGIES [facility] ENCOUNTERS ADMIT/DISCHARGE ACCOUNT NUMBER ADMITTING ENCOUNTER CLASS LOCATION SOURCE 10/02/2024/10/03/19 [id number] Ambulatory Building:NOM S BCP OB [facility] 10/02/2024/10/03/19 [id number] Ambulatory Building:NOM S BCP OB [facility] 09/25/2024/09/26/19 [id number] Ambulatory Building:NOM S [facility] OB [facility] 09/20/2024/09/21/19 [id number] Ambulatory Buildin 4 [facility] 09/13/2024/09/14/19 [id number] Ambulatory Building:NOM S [facility] OB [facility] 09/12/2024/09/13/19 [id number] Ambulatory Buildin 4 [facility] 09/11/2024/09/12/19 [id number] Ambulatory [facility]:ENDO [facility] 09/06/2024/09/07/19 [id number] Ambulatory Building:NOM S [facility] OB [facility] 09/05/2024/09/06/19 [id number] Ambulatory [facility] Hospital[facility] ding:OTCA [facility] 09/04/2024/09/05/19 25 [id number] Ambulatory [facility] Hospital[facility] ding:SALB [facility] 08/31/2024/09/01/19 [id number] Ambulatory Buildin 4 [facility] 08/30/2024/08/31/19 [id number] Ambulatory Building:NOM S BCP OB [facility] 08/24/2024/08/25/19 [id number] [facility] 08/16/2024/08/17/19 [id number] Ambulatory Building:NOM S BCP OB [facility] 07/18/2024/07/19/19 25 [id number] Ambulatory Building:NOM SSWSIM [facility] 07/17/2024/07/18/19 25 [id number] Ambulatory Building:NOM S BCP OB [facility] 07/05/2024/07/06/19 25 [id number] Ambulatory Building:NOM S BCP OB [facility] 06/19/2024/06/20/19 25 [id number] Ambulatory Building:NOM S BCP OB [facility] 06/19/2024/06/20/19 25 [id number] Ambulatory Building:NOM S BCP OB [facility] 05/23/2024/05/23/19 25 [id number] Ambulatory Building:FHP OD [facility] 05/22/2024/05/22/19 25 [id number] Ambulatory Building:NOM S BCP OB [facility] 05/15/2024/05/15/19 25 [id number] Ambulatory Building:NOM S BCP OB [facility] 04/21/2024/04/21/19 25 [id number] Ambulatory Building:NOM S BCP OB [facility] 04/21/2024/04/21/19 25 [id number] Ambulatory Building:NOM S BCP OB [facility] 04/03/2024/04/03/19 25 [id number] [facility] 03/27/2024/03/27/20 24 [id number] Ambulatory Building:NOM S SWS OB [facility] 03/17/2024/03/17/20 24 [id number] [facility]LUAN [facility] 03/17/2024/03/17/20 24 [id number] [facility] 03/15/2024/03/15/20 24 [id number] [facility]LUAN [facility] 03/13/2024/03/13/20 24 [id number] [facility]LU[facility] 03/10/2024/03/10/20 24 [id number] [facility]ulatory [facility]:LUAN [facility] 03/08/2024/03/08/20 24 [id number] [facility]/08/2024/03/08/20 24 [id number] Ambulatory Building[facility]26[facility] 02/23/2024/02/23/20 24 [id number] [facility]/23/2024/02/23/20 24 [id number] [facility]ulatory [facility]:TYLER [facility] 02/17/2024/02/17/20 24 [id number] [facility] 02/15/2024/02/15/20 24 [id number] Ambulatory Building:NOM S SWS OB [facility] 01/24/2024/01/24/20 24 [id number] Ambulatory Building:FNR MR [facility] 01/14/2024/01/17/20 24 [id number] [facility]FCPS [facility] 12/31/2023/12/31/19 24 [id number] [facility] 12/21/2023/12/21/19 24 [id number] [facility] 11/28/2023/11/28/19 24 [id number] [facility]ulatory [facility]:DEBI [facility] 11/22/2023/11/22/19 24 [id number] [facility]ulatory [facility]:TYLER [facility] 11/22/2023/11/22/19 24 [id number] [facility] 11/22/2023/11/22/19 24 [id number] [facility]ulatory [facility]:TYLER [facility] 10/26/2023/10/26/19 24 [id number] [facility]:TYLER [facility] 10/22/2023/10/22/19 24 [id number] [facility] PAYERS ENCOUNTER GUARANTOR PAYER SUBSCRIBER SOURCE 10/02/2024 LISSA STEPHENSB: [address] [address]Ggz: (HP) Primary Insurance:AETNAPolicy Number: [id number] Date:4398-10-51Fwsn Name:JAY PEÑ[place] [id number] [address]PZ: LISSA RIVASDOB: [id number] [address] [address] [facility] 10/02/2024 Secondary Insurance:MEDICAL MUTUALPolicy Number: [id number] Date:2024-08-27 CHELSY RIVASDOB: 5132-18-40QRS326 [address] [address] [facility] 10/02/2024 LISSA SHOOKELLODOB: [address] [address]Aew: (PV) Primary Insurance:AETNAPolicy Number: [id number] Date:1236-61-43Vsmv Name:LINDA PEÑA [address] [place] [address]RF: LISSA SHOOKELLODOB: 4071-01-42FAT444 [address] [address] [facility] 10/02/2024 Secondary Insurance:MEDICAL MUTUALPolicy Number: [id number] Date:2024-08-27 CHELSY SHOOKELLODOB: [id number] [address] [address] [facility] 09/25/2024 LISSA RIVASDOB: [address] [address]Keo: (HP) Primary Insurance:AETNAPolicy Number: [id number] Date:4432-17-30Yyli Name:GINGER STRICKLAND [address]JH: LISSA SHOOKELLODOB: [id number] [address] [facility] [address], [place] [address] [facility] 09/25/2024 Secondary Insurance:MEDICAL MUTUALPolicy Number: [id number] Date:2024-08-27 CHELSY SHOOKELLODOB: [id number] [place] [address] [facility] 09/20/2024 LISSA SHOOKELLODOB: [facility] [address], [place] [address]Zto: (HP) Primary Insurance:AETNA POSPolicy Number: [id number] Date:2024-08-27 LISSA SHOOKELLODOB: 0085-51-10ZVR527 [facility] [address], [place] [address]Jwp: (HP) [facility] 09/20/2024 Secondary Insurance:MMO SUPERMEDPolicy Number: [id number] Date:2024-08-27 CHELSY SHOOKELLOB: [id number] [address] [place] [address] [facility] 09/13/2024 LISSA SHOOKELLODOB: [facility] [address], [place] [address]Ibb: (HP) Primary Insurance:AETNAPolicy Number: [id number] Date:2672-22-44Fhxd Name:GINGER STRICKLAND [address]NQ: LISSA STEPHENSB: [id number] [address] [place] [address] [facility] 09/13/2024 Secondary Insurance:MEDICAL MUTUALPolicy Number: [id number] Date:2024-08-27 CHELSY RIVASB: [id number] [facility] [address] [place] [address] [facility] 09/12/2024 LISSA IASHEYB: [facility] [address], [place] [address]Zay: (HP) Primary Insurance:AETNA POSPolicy Number: [id number] Date:2024-08-27 LISSA RESTREPOSHEYB: [id number] [facility] [address], [place] [address]Sal: (HP) [facility] 09/12/2024 Secondary Insurance:MMO SUPERMEDPolicy Number: [id number] Date:2024-08-27 CHELSY RESTREPOSHEYB: [id number] [facility] [address], [place] [address] [facility] 09/11/2024 Primary Insurance:AETNA POSPolicy Number: [id number] Date:0325-80-83Idpz Name:Kale RESTREPOGABYSTEFANIB: [id number] [address] [place] [address] [facility] 09/11/2024 Secondary Insurance:MMO SUPERMED PPOPolicy Number: [id number] Date:7333-78-53Mrwr Name:Adan RESTREPOSHEYB: [id number] [address] [address] [facility] 09/06/2024 LISSA RESTREPOSHEYB: [address] [place] [address]Ryu: (HP) Primary Insurance:AETNAPolicy Number: [id number] Date:1820-34-89Dobx Name:LINDA PEÑA 860740WXGINGER CULLEN [address]SD: LISSA RESTREPOGABYSTEFANIB: [id number] [address] [address] [facility] 09/06/2024 Secondary Insurance:MEDICAL MUTUALPolicy Number: [id number] Date:2024-08-27 CHELSY RIVASB: [id number] [place] [address] [facility] 09/05/2024 Primary Insuranc e:MMO SUPERMED PPOPolicy Number: [id number] Date:0041-70-48Hcny Name:Adan RIVASMAGALY: [id number] [address] [address] [facility] 09/05/2024 Secondary Insurance:AETNA POSPolicy Number: [id number] Date:7935-16-83Bdvd Name:Kale RIVASB: [id number] [address] [place] [address] [facility] 09/04/2024 Primary Insurance:AETNA POSPolicy Number: [id number] Date:6968-44-40Sore Name:Kale STEPHENSB: [id number] [address] [address] [facility] 08/31/2024 LISSA IASHEYB: [address] [address]Jqe: (HP) Primary Insurance:AETNA POSPolicy Number: [id number] Date:2024-08-27 LISSA RIVASB: [id number] [address] [address]Zti: (HP) [facility] 08/30/2024 LISSA IASHEYB: [address] [address]Otk: (HP) Primary Insurance:AETNAPolicy Number: [id number] Date:2021-04-29 - 4725-82-19Xict Name:GINGER STRICKLAND [address]YI: LISSA IVORYELLODOB: 6108-04-04PWW282 [address] [address] [facility] 08/24/2024 Lissa F [id number] [address] [address]Hps: (HP) Primary Insurance:Aetna Insurance CoPolicy Number: [id number] Date:7185-16-46RU Hugh [address]KwGINGER Kumar [address]IV: Lissa F IvoryelloDOB: 8332-82-11VZK689 [address] [address]Jpa: (HP) [facility] 08/24/2024 Secondary Insurance:Self PayPolicy Number: Effective Date:2024-07-21 [facility]/16/2024 LISSA IAGABYELLODOB: [address] [address]Egn: (HP) Primary Insurance:AETNAPolicy Number: [id number] Date:6290-45-10Dast Name:JAY PEÑA [id number] KUMAR [address]YK: LISSA IVORYELLODOB: 9801-64-04MOZ[address] [address] [facility] 07/18/2024 LISSA SHOOKELLODOB: [address] [address]Upc: (HP) Primary Insurance:AETNAPolicy Number: [id number] Date:8944-71-55Irrg Name:GINGER STRICKLAND [address]SE: LISSA IANNELLODOB: 7924-01-69TPE412 [address] [address] [facility] 07/17/2024 LISSA IANNELLODOB: [address] [address]Xrn: (HP) Primary Insurance:AETNAPolicy Number: [id number] Date:9849-00-07Iwhy Name:GINGER STRICKLAND [address]UU: LISSA IANNELLODOB: [id number] [address] [address] [facility] 07/05/2024 LISSA IANNELLODOB: [address] [address]Dwi: (HP) Primary Insurance:AETNAPolicy Number: [id number] Date:6078-56-47Hqxo Name:GINGER STRICKLAND [address]OU: LISSA IANNELLODOB: 2944-18-70KPD726 [address] [address] [facility] 06/19/2024 LISSA IANNELLODOB: [address] [address]Smi: (HP) Primary Insurance:AETNAPolicy Number: [id number] Date:1663-77-89Rouo Name:GINGER STRICKLAND [address]PG: LISSA IANNELLODOB: 2410-10-69GAK341 [address] [address] [facility] 06/19/2024 LISSA IAGABYELLODOB: [address] [address]Ghj: (HP) Primary Insurance:AETNAPolicy Number: [id number] Date:4022-43-15Xklj Name:JAY LEDBETTERGINGER [address]TJ: LISSA IAGABYELLODOB: 4457-74-43AHS134 [address] [address] [facility] 05/23/2024 LISSA IAGABYELLODOB: [address] [address]Wlx: (HP) Primary Insurance:AETNAPolicy Number: [id number] Date:1086-52-12Peqz Name:JAY PEÑA [id number] GINGER LEDBETTER [address]DD: LISSA IAGABYELLODOB: 7297-80-01QTO785 [address] [address] [facility] 05/22/2024 LISSA IAGABYELLODOB: [address] [address]Lpi: (HP) Primary Insurance:AETNAPolicy Number: [id number] Date:7838-37-59Zrpg Name:JAY NAVARRO GINGER LEDBETTER [address]XK: LISSA IAGABYELLODOB: 1564-87-73DCB275 [address] [address] [facility] 05/15/2024 LISSA IVORYELLODOB: [address] [address]Jbt: (HP) Primary Insurance:AETNAPolicy Number: [id number] Date:4451-41-44Rysu Name:GINGER STRICKLAND [address]LY: LISSA IAGABYELLODOB: 4476-90-23GKZ037 [address] [address] [facility] 04/21/2024 LISSA IAGABYELLODOB: [address] [address]Nno: (HP) Primary Insurance:AETNAPolicy Number: [id number] Date:3433-08-06Fcvb Name:JAY PEÑA 249[address]CHGINGER ESPINOZA [address]NR: LISSA IVORYELLODOB: 6696-86-19XXA[address] [address] [facility] 04/21/2024 LISSA SHOOKELLODOB: [address] [address]Ajr: (HP) Primary Insurance:AETNAPolicy Number: [id number] Date:5411-11-56Owup Name:GIGNER STRICKLAND [address]GZ: LISSA IVORYELLODOB: 5407-84-39PPR476 [address] [address] [facility] 2024 Primary Insurance:AETNA POSPolicy Number: [id number] Date:7200-02-48Vaxb Name:Kale SHOOKELLODOB: [id number] [address] [place] [address] [facility] 03/27/2024 LISSA STEPHENSB: [address] [address]Dwx: () Primary Insurance:AETNAPolicy Number: [id number] Date:5597-04-04Qayj Name:JAY PEÑA 876352YMGINGER CULLEN [address]IQ: LISSA RIVASB: [id number] [address] [address] [facility] 03/17/2024 Primary Insurance:AETNA POSPolicy Number: [id number] Date:3399-60-42Ypev Name:Kale STEPHENSB: [id number] [address] 03/17/2024 Primary Insurance:AETNA POSPolicy Number: [id number] Date:4683-43-47Jflz Name:Kale STEPHENSB: [id number] [address] 03/15/2024 Primary Insurance:AETNA POSPolicy Number: [id number] Date:6453-27-98Wfcz Name:Kale STEPHENSB: [id number] [address] 244[address] [facility] 03/13/2024 Primary Insurance:AETNA POSPolicy Number: [id number] Date:4484-41-89Vrto Name:Kale STEPHENSB: [id number] [address] [address] [facility] 03/10/2024 Primary Insurance:AETNA POSPolicy Number: [id number] Date:2790-18-50Ezeg Name:Kale STEPHENSB: [id number] [address] [address] [facility] 03/08/2024 BETTY RIVASDOB: [facility] [address], [place] [address]Nto: (HP) Primary Insurance:AETNAPolicy Number: [id number] Date:2021-04-29 BETTY RESTREPOGABYSTEFANIDOB: 1654-51-35KQM[address] [facility] [place] [address]Cnk: (HP) [facility] 03/08/2024 BETTY SHOOKELLODOB: [facility] [place] [address]Grl: (HP) Primary Insurance:AETNAPolicy Number: [id number] Date:2021-04-29 BETTY IAGABYSTEFANIB: [id number] [facility] [address], [place] [address]Snq: (HP) [facility] 02/23/2024 Primary Insurance:AETNA POSPolicy Number: [id number] Date:5927-55-79Lscv Name:Kale RESTREPOGABYSTEFANIB: [id number] [address], [place] [address] [facility] 02/23/2024 Primary Insurance:AETNA POSPolicy Number: [id number] Date:9574-36-44Swls Name:Kale RESTREPOGABYSTEFANIB: [id number] [address], [place] [address] [facility] 02/17/2024 Primary Insurance:AETNA POSPolicy Number: [id number] Date:6107-76-50Dfyo Name:Kale RESTREPOGABYSTEFANIB: [id number] [address] [address] [facility] 02/15/2024 LISSA KATB: [address] [address]Pwu: (HP) Primary Insurance:AETNAPolicy Number: [id number] Date:4911-90-55Jigg Name:[place] [address]YU: LISSA RESTREPOGABYSTEFANIDOB: 7861-27-82GBU717 [address] [address] [facility] 01/24/2024 LISSA RIVASDOB: [address] [address]Abf: () Primary Insurance:AETNAPolicy Number: [id number] Date:8705-37-64Yesp Name:LINDA PEÑA [address] [address]MD: LISSA IADELISADOB: 0282-69-02DXI332 [address] [address] [facility] 01/14/2024 Primary Insurance:AETNA POSPolicy Number: [id number] Date:6903-45-53Pvhz Name:Klae STEPHENSB: [id number] [address] [facility] 12/31/2023 Primary Insurance:AETNA POSPolicy Number: [id number] Date:0564-42-94Oynt Name:Kale STEPHENSB: [id number] [address] [address] [facility] 12/21/2023 Primary Insurance:AETNA POSPolicy Number: [id number] Date:6150-67-43Lqvz Name:Kale STEPHENSB: [id number] [address] [address] [facility] 11/22/2023 Primary Insurance:AETNA POSPolicy Number: [id number] Date:3399-28-95Pkve Name:Kale DIAZ: [id number] [address] [address] [facility] 11/22/2023 Primary Insurance:AETNA POSPolicy Number: [id number] Date:7460-21-14Rmxh Name:Kale STEPHENSB: [id number] [address] [place] [address] [facility] 11/22/2023 Primary Insurance:AETNA POSPolicy Number: [id number] Date:8793-03-80Cdtw Name:Kale STEPHENSB: [id number] [address] [place] [address] [facility] 10/26/2023 Primary Insurance:AETNA POSPolicy Number: [id number] Date:7089-48-35Xuar Name:Kale STEPHENSB: [id number] [address] [address] [facility] 10/22/2023 Primary Insurance:AETNA POSPolicy Number: [id number] Date:2088-05-77Dbbl Name:Kale STEPHENSB: [id number] [address] [facility]
[2024-10-03 16:11] VITALS: BP 133/74; PULSE 90
--- NOTE | 2024-10-03 16:37 | US_ITS ---
[facility] [place] [id number] Patient Name: LITO ROJAS MRN: [id number] date: 1995 Sex: F Assigned Patient Location: Current Patient Location: Accession/Order Number: [id number] Exam Date: 10/04/2024 07:11 Report Date: 10/04/2024 07:13 At the request of: NEGAR GONZALEZ DO Procedure: US OB BPP w non-stress BIOPHYSICAL PROFILE: CLINICAL INFORMATION: HISTORY OF GESTATIONAL DIABETES Z86.32 COMPARISON: 09/27/2024 There is a single live intrauterine gestation in cephalic presentation. The reported gestational age is 33 weeks 2 days. The heart rate measures 145 beats per minute. A nuchal cord is suspected. FINDINGS: TONE: 1 or more episodes of activity extension and flexion of extremity or opening and closing of the hand [Y] 2/2 GROSS BODY MOVEMENTS: 3 or more discrete body or limb movements [Y] 2/2 BREATHING MOVEMENTS: 1 or more episodes of breathing lasting at least 30 seconds [Y] 2/2 RAKESH: A single deepest vertical pocket of amniotic fluid greater than 2 cm [Y] 2/2 RAKESH: 16.1 cm. This is in upper normal range. Total score: 8/8 US/ OB BPP w non-stress IMPRESSION: NORMAL BIOPHYSICAL PROFILE. SUSPECTED NUCHAL CORD. Impression dictated by: Paula Gage M.D. 10/04/2024 7:13 AM Dictation Location: [place] [address] Electronically authenticated by: [id number] Y Date: 10/04/2024 07:13
== END 2024-10-03 17:09 | disposition home or self-care (01) ==
LOC: US 16:03 → FBC 16:05
PROVIDERS: PCP Internal Medicine; Visit Provider Obstetrics & Gynecology
DX: Z86.32 Personal history of gestational diabetes (principal); Z3A.33 33 weeks gestation of pregnancy
CPT/HCPCS: 76818

== ENCOUNTER 2024-10-06 08:18 | Outpatient (OUT) | payer OTHER, SELFPAY ==
--- OUTSIDE RECORDS SUMMARY | 2017-11-10 05:30 | XMS_ITS | Continuity of Care Document ---
Author Organization [facility] Address [address] [place] [address] Phone Care Team Providers Care Quality Specialist Name Role Phone Lindsey LANIER, Torrie Pena [...] Providers Copied on Encounter OFFICE/OUTPAT IENT VISIT, [facility], [address] [place], [place], [id number], tel:[phone] [facility] Body mass index (BMI) 31.0-31.9, adultMorbid (severe) obesity due to excess calories Lindsey Brownlee. [address] [place] [address], [id number], [place]. tel:[phone] [facility], [address] [place], [place], [id number], tel:[phone] [facility] Morbid (severe) obesity due to excess caloriesBody mass index (BMI) 31.0-31.9, adult Landon Stafford. [address] [place], [place], [id number], [place]. tel:[phone] OFFICE/OUTPAT IENT VISIT, [facility], [address] [place], [place], [id number], [place] tel:[phone] [facility] adipex # 3 (chief complaint) Body mass index (BMI) 32.0-32.9, adultMorbid (severe) obesity due to excess caloriesBody mass index (BMI) 33.0-33.9, adult Landon Stafford. [address] [place] [address], [id number], [place]. tel:[phone] OFFICE/OUTPAT IENT VISIT, [facility], [address] [place] [address], [id number], [place] tel:[phone] [facility] Adipex (chief complaint) Body mass index (BMI) 34.0-34.9, adultMorbid (severe) obesity due to excess caloriesBody mass index (BMI) 32.0-32.9, adult Landon Stafford. [address] [place], [place], [id number], [place]. tel:[phone] OFFICE/OUTPAT IENT VISIT, [facility], [address] [place], [place], [id number], [place] tel:[phone] [facility] Body mass index (BMI) 34.0-34.9, adultMorbid (severe) obesity due to excess calories Landon Stafford. [address] [place], [place], [id number], [place]. tel:[phone] [facility], [address] [place] [address], [id number], [place] tel:[phone] [facility] wt loss (chief complaint)a llergies (chief complaint) Abnormal weight gainMorbid (severe) obesity due to excess caloriesBody mass index (BMI) 34.0-34.9, adultAllergy, unspecified, initial encounter Landon Stafford. [address] [place], [place], [id number], [place]. tel:[phone] [facility], [address] [place] [address], [id number], [place] tel:[phone] [facility] No Information Dixon Charles. [address] [place], [place], [id number], [place]. tel:[phone] [facility], [address] [place] [address], [id number], [place] tel:[phone] [facility] No Information Dixon Charles. [address] [place], [place], [id number], [place]. tel:[phone] OFFICE/OUTPAT IENT VISIT, [facility], [address] [place], [place], [id number], [place] tel:[phone] [facility] infected toe (chief complaint)i mmunization (chief complaint) Ingrown nail Landon Stafford. [address] [place] [address], [id number], [place]. tel:[phone] Family History Family Member Type Diagnosis Age [...] Record Payers Payer name Insurance type Covered alliance party ID Authoriza tion(s) No Information Social [...] in the past. Pt sees a in [place] for [facility]. [place] allergies The patient pres ents [...] Information Instructions Date Instruction Additional Infor lydia Giving encouragement to exercise Related to Body [...] Mental Status Date Cognitive Assessment Orientation - [place] ed to time, place, person, situation.Normal Orientation Patient Care Teams Name Effective Dates (start - stop) Status Members No Information
--- OUTSIDE RECORDS SUMMARY | 2024-07-17 10:40 | XMS_ITS | Encounter Summary ---
Author Organization [facility] Address [address] [place] [address] Care Team Providers Care Nozzleman Name Role Phone Omer Velazquez MD Primary Care Provider [phone] Reason for Visit * Reason Comments Routine Visit Encounter Details Date Type Department Care Team (Late st Contact Info) Description 07/17/2024 10:40 AM EDT Routine [facility] [address] [place] [address] Saravanan Ahumada, DO [address] [place], [facility]11 Diabetes mellitus screening; Second trimester ([facility]); 22 weeks gestation of ([facility]) Social History Tobacco Use Types Packs/Day Years Used Date Smoking Tobacco: Never Smokeless Tobacco: Never Alcohol Use Standard Drinks/Week Comments Never 0 (1 standard drink = 0.6 oz pure alcohol) Caffeine intake:less than 100 mg daily AUDIT-C Answer Date Recorded Q1: How often do you have a drink containing alcohol? Never 02/15/2024 Q2: How many drinks containi ng alcohol do you have on a typical day when you are drinking? Patient does not drink Q3: How often do you have si x or more drinks on one occasion? Never 02/15/2024 PHQ-2 Answer Date Recorded Patient Health Questionnaire-2 Score 0 07/18/2024 Estimated Date of Delivery Comme nts Yes 11/19/2024 Based on last me nstrual period of 02/13/2024 (Approximate) Sex and Gender Information Value Date Recorded Sex Assigned at Not on file Legal Sex Female 7:14 PM EDT Gender Identity Not on file Sexual Orientation Not on file Occupation Industry Job Start Date Job End Date Works full-time, [employer] Not on file Not on file N ot on file documented as of this encounter Last Filed Vital Signs Vital Sign Reading Time Taken Comments Blood Pressure 130/80 07/17/2024 11:37 AM EDT Pulse - - Temperature - - Respiratory Rate - - Oxygen Saturation - - Inhaled Oxygen Concentration - - Weight 102 kg (225 lb 8 oz) 07/17/2024 11:37 AM EDT Height - - Body Mass Index 39.95 05/23/2024 4:00 PM EST documented in this encounter Functional Status * Over the past 2 weeks, how often have you been bothered by any of the following problems? Question Answer Date of Assessment Author Little interest or pleasure in doing things Not at all 07/18/2024 9:22 AM EDT Bekah Mohan M A Feeling down, depressed, or hopeless Not at all 07/18/2024 9:22 AM EDT Bekah Mohan M A Patient Health Questionnaire -2 Score 0 07/18/2024 9:22 AM EDT Bekah Mohan M A documented as of this encounter Progress Notes * Kayla Ashley LPN - 07/17/2024 10:40 AM EDT Reason for Appointment: Patient ID: Lissa Rivas is a 29 y.o. female who presents for Routine Visit Patient presents today for Return OB appointment. 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 Resolved Ambulatory Problems Diagnosis Date Noted Chronic fatigue syndrome 10/05/2022 Past Medical History: Diagnosis Date Anxiety Asthma LORA (generalized anxiety disorder) (CMS/HCC) GERD (gastroesophageal reflux disease) Herpes simplex PCOS (polycystic ovarian syndrome) HISTORY PAST MEDICAL HISTORY SOCIAL HISTORY Past Medical History: Diagnosis Date Anxiety Asthma LORA (generalized anxiety disorder) (CMS/HCC) GERD (gastroesophageal reflux disease) Herpes simplex PCOS (polycystic ovarian syndrome) Seasonal allergies Social History Tobacco Use Smoking status: Never Smokeless tobacco: Never Vaping Use Vaping status: Never Used Substance Use Topics Alcohol use: Never Comment: Caffeine intake:less than 100 mg daily Drug use: Never Comment: Pain killers FAMILY HISTORY Family History Problem Relation Name Age of [place] Hypertension Mother Estee Other (SDHA) Mother Estee Asthma Father Franklin Diabetes Father Franklin Heart disease Father Franklin Stroke Father Franklin Kidney disease Father Franklin Atrial fibrillation Father [place] COPD Father [place] Hypertension Father [place] Hyperlipidemia Father [place] Atrial fibrillation Sister Breast cancer Mother's Sister Prostate cancer Mother's Brother Lung cancer Mother's Brother Breast cancer Maternal Grandmother Arthritis Paternal Grandmother Hina Heart disease Paternal Grandmother Hina Stroke Paternal Grandmother Hina Atrial fibrillation Paternal Grandmother Hina COPD Paternal Grandmother Hina Diabetes Paternal Grandmother Hina SURGICAL HISTORY Past Surgical History: Procedure Laterality Date EYE SURGERY 03/2020 APRIL Lau REVIEW OF SYSTEMS Review of Systems: Review of Systems Constitutional: Negative. HENT: Negative. Eyes: Negative. Respiratory: Negative. Cardiovascular: Negative. Gastrointestinal: Negative. Genitourinary: Negative. Musculoskeletal: Negative. Skin: Negative. Neurological: Negative. All other systems reviewed and are negative. Hematological: Negative. Endocrine: Negative. Allergic/Immunologic: Negative. OBJECTIVE Objective: Physical Exam Constitutional: Appearance: Normal [...] nursing note reviewed. Exam conducted with a assistant softball coach present. Vitals: Estimated body mass index is 39.15 kg/m?? as calculated from the following: Height as of 05/23/24: 5' 3 . Weight as of 06/19/24: 221 lb. BP: Patient's last menstrual period was 02/13/2024 (approximate). ASSESSMENT & PLAN ICD-10-CM 1. Diabetes mellitus screening Z13.1 CBC Glucose tolerance, 1 hour CBC Glucose tolerance, 1 hour 2. Second trimester Z34.92 3. 22 weeks gestation of Z3A.22 POCT urinalysis dipstick manually resulted Patient presents today for a routine obstetrics appointment. Patient is currently 22w1d with a Estimated Date of Delivery: 11/19/24. Discussed patient traveling at 26-27 weeks gestation, and patient aware of precautions to take during travel. Patient was prescribed medication from wind turbine electrical engineer and provider will reach out to patient to inform her if it is safe during . Patient givenorders for 1 hour gtt and CBC to have obtained. Patient will have another placenta US around 32 weeks gestation. Patient to return to clinic in 4 weeks for routine OB appointment. Documented by Kayla Ashley LPN on behalf of: Saravanan Ahumada DO --Patient was informed prior to leaving that lotion that was prescribed by Pediatric Occupational Therapist is safe to use, but not in large doses. PVU documented in this encounter Plan of Treatment Upcoming Encounters Date Type Department Care Team (Late st Contact Info) Description 10/09/2024 9:00 AM EDT Routine [facility] [address] [address] Saravanan Ahumada DO [address] [place] [address] 07/24/2025 9:15 AM EDT Office Visit [facility] [address] [place] [address] Scheduled Orders Name Type Priority Associated Diagnoses Orde r Schedule CBC Lab Routine Diabetes mellitus screening Expected: 07/17/2024 (Approximate), Expires: 07/17/2025 Glucose tolerance, 1 hour Lab Routine Diabetes mellitus screening Expected: 07/17/2024 (Approximate), Expires: 07/17/2025 documented as of this encounter Goals Goal Patient Goal Type Associated Problems Recent Progress Patient-Stated? Author Reminders Care Plan OB Reminders No Open Scheduling, Background documented as of this encounter Procedures Procedure Name Priority Date/Time Associated Diagnosis Comments POCT URINALYSIS DIPSTICK Routine 07/17/2024 11:08 AM EDT 22 weeks gestation of ([facility]) documented in this encounter Results * (ABNORMAL) POCT urinalysis dipstick manually resulted (07/17/2024 11:08 AM EDT) Color, UA Yellow Clarity, UA Clear Glucose, UA Negative Negative - 2000(110) ++++ mg/dL Bilirubin, UA Negative Negative - 4(70) +++ mg/dL Ketones, UA Negative Negative - 160(16) ++++ mg/dL Spec Grav, UA 1.020 1 - 1.03 Blood, UA Positive Negative - 50 Jorge Luis/mcL Comment:Trace-lysed pH, UA 7.0 5 - 9 Protein, UA Trace Negative - 2000(20) ++++ mg/dL Urobilinogen, UA 0.2 0.2 - 12 mg/dL Leukocytes, UA Negative Negative - 500+++ Flori/mcL Nitrite, UA Negative Negative - Positive Urine 07/17/2024 11:0 8 AM EDT Saravanan Zita DO POINT OF CARE TEST ENTER/EDIT OR DERABLES Final Result documented in this encounter Visit Diagnoses Diagnosis Diabetes mellitus screening Screening for diabetes mellitus Second trimester ([facility]) state, incidental 22 weeks gestation of ([facility]) documented in this encounter Additional Health Concerns Active Problems Noted Date Diagnosed Date OB Reminders 04/30/2024 documented as of this encounter Care Teams Nozzleman Relationship Specialty Start Date End Date Omer Velazquez MD [address] [place] [address] PCP - General Internal Medicine 10/05/22 documented as of this encounter
--- OUTSIDE RECORDS SUMMARY | 2024-09-13 11:30 | XMS_ITS | Encounter Summary ---
Author Organization [facility] Address [address] [place] [address] Care Team Providers Care Furniture Crater Name Role Phone Omer Velazquez MD Primary Care Provider [phone] Reason for Visit * Reason Comments Routine Visit Encounter Details Date Type Department Care Team (Late st Contact Info) Description 09/13/2024 11:30 AM EDT Routine [facility] [address] [place] [address] Saravanan Ahumada, DO [address] [facility] [address] [facility] [address] [facility] [address] [place], [facility]11 History of gestational diabetes (Primary Dx); Third trimester ([facility]); 31 weeks gestation of ([facility]) Social History Tobacco Use Types Packs/Day [...] Sign Reading Time Taken Comments Blood Pressure 126/82 09/13/2024 11:47 AM EDT Pulse - - Temperature - - Respiratory Rate - - Oxygen Saturation - - Inhaled Oxygen Concentration - - Weight 101 kg (223 lb 8 oz) 09/13/2024 11:47 AM EDT Height - - Body Mass Index 39.59 07/18/2024 9:20 AM EDT documented in this encounter Progress Notes * Selina Denson NP - 09/13/2024 11:30 AM EDT Reason for Appointment: Patient ID: [...] meal for a total of 4times daily. cholecalciferol (Vitamin D-3) 50 MCG (1999) tablet 2 tablets, Daily Glucose Blood (Blood Glucose Test) strip 1 strip, In Vitro, Daily, Use in the morning prior to breakfast, 1 hour after each meal for a total of 4times daily. Lancets Ultra Thin misc 1 each, In Vitro, Daily, Use to check FSBS four times daily Lantus SoloStar 100 UNIT/ML pen Inject 12 units every evening. Prime with 2 units. 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 Exam conducted with a strickler attendant present. Vitals: Estimated body mass index is 39.59 kg/m?? as calculated from the following: Height as of 07/18/24: 5' 3 . Weight as of this encounter: 223 lb 8 oz. BP: 126/82 Patient's last menstrual period was 02/13/2024 (approximate). ASSESSMENT & PLAN ICD-10-CM 1. Third trimester ([facility] Z34.93 POCT urinalysis dipstick manually resulted 2. 31 weeks gestation of ([facility]) Z3A.31 Return OB: Patient presents today for a routine obstetrics appointment. Patient is currently 30w3d . Patient states she is doing well but has complaints of being tired due to current . Patient has verbalizes frequent movement. labor precautions was discussed/given and patient was instructed to perform kick counts three times a day. Orders Placed This Encounter Procedures POCT urinalysis dipstick manually resulted Follow Up: Patient is to return to office in 2 week for routine OB appointment. Patient with follow up in 2 weeks to include growth ultrasound and begin NST/ BPP. Patient with elevated B/P in MFM office and currently collecting 24 hour urine and hypertension labs obtained yesterday. Patient will Begin Lantus at 12 units in the pm and glucose will be monitored per MFM Documented by Selina Denson NP on behalf of: Saravanan Ahumada DO documented in this encounter Plan of Treatment Upcoming Encounters Date Type Department Care Team (Late st Contact Info) Description 10/09/2024 9:00 AM EDT Routine [facility] [address] [place] [address] Saravanan Ahumada, DO [address] [facility] [address] [place] [address] 07/24/2025 9:15 AM EDT Office Visit [facility] [address] [place] [phone] Scheduled Orders Name Type Priority Associated Diagnoses Orde r Schedule US biophysical profile w non stress test Imaging Routine History of gestational diabetes Expected: 09/13/2024 (Approximate), Expires: 03/15/2025 documented as of this encounter Goals Goal Patient Goal Type Associated Problems Recent Progress Patient-Stated? Author Reminders Care Plan OB Reminders No Open Scheduling, Background documented as of this encounter Procedures Procedure Name Priority Date/Time Associated Diagnosis Comments POCT URINALYSIS DIPSTICK Routine 09/13/2024 11:56 AM EDT Third trimester ([facility]) documented in this encounter Results * US OB follow up transabdominal approach (10/02/2024 11:00 AM EDT) Anatomical Region Laterality Modality Body Ultrasound 10/03/2024 12:5 0 PM EDT Impressions 10/03/2024 2:41 PM EDT Single, live intrauterine , current sonographic age of 33 weeks and 2 days, with an estimated date of delivery of November 18, 2024 * Estimated Weight (g) by Percentile is based upon an accurate estimated age based on last menstrual period. TRANSCRIBED BY: ELECTRONICALLY SIGNED BY: Navjot Salvador MD Narrative 10/03/2024 2:41 PM EDT FINDINGS: A single, live intrauterine is present with normal cardiac rate of 153 beats per minute. Normal activity and amniotic fluid volume. Amniotic fluid index is 14.4 cm (largest fluid pocket 4.2 cm). Morphology is grossly normal. The placenta is anterior, not associated with the cervical os. The current sonographic age is 33 weeks and 2 days, based on the following measurements: BPD 8.4 cm (33 weeks, 5 days) Head Circumference 29.9 cm (33 weeks, 1 day) Abdominal Circumference 29.3 cm (33 weeks, 2 days) Femur Length 6.4 cm (32 weeks, 6 days) Presentation Cephalic Weight (g) by Percentile 42.2 % * These measurements result in an estimated date of delivery of November 18, 2024. The current estimated weight is 2138 grams (4 pounds, 11 ounces). Procedure Note Navjot Salvador MD - 10/03/2024 FINDINGS: A single, live intrauterine is present with normal cardiacrate of 153 beats per minute. Normal activity and amniotic fluidvolume. Amniotic fluid index is 14.4 cm (largest fluid pocket 4.2 cm).Morphology is grossly normal. The placenta is anterior, not associatedwith the cervical os. The current sonographic age is 33 weeks and 2 days,based on the following measurements: BPD 8.4 cm (33 weeks, 5 days) Head Circumference 29.9 cm (33 weeks, 1 day) Abdominal Circumference 29.3 cm (33 weeks, 2 days) Femur Length 6.4 cm (32 weeks, 6 days) Presentation Cephalic Weight (g) by Percentile 42.2 % * These measurements result in an estimated date of delivery of October. The current estimated weight is 2138 grams (4 pounds, 11ounces). IMPRESSION: Single, live intrauterine , current sonographic age of 33 weeksand 2 days, with an estimated date of delivery of November 18, 2024 * Estimated Weight (g) by Percentile is based upon an accurateestimated age based on last menstrual period. TRANSCRIBED BY: ELECTRONICALLY SIGNED BY: Navjot Salvador MD us Selina Denson NP IMG OB US PROCEDURES Final Re sult * POCT urinalysis dipstick manually resulted (09/13/2024 11:56 AM EDT) Color, UA Yellow Clarity, UA Clear Glucose, UA Negative Negative - 2000(110) ++++ mg/dL Bilirubin, UA Negative Negative - 4(70) +++ mg/dL Ketones, UA Negative Negative - 160(16) ++++ mg/dL Spec Grav, UA 1.020 1 - 1.03 Blood, UA Negative Negative - 50 Jorge Luis/mcL pH, UA 7.0 5 - 9 Protein, UA Negative Negative - 2000(20) ++++ mg/dL Urobilinogen, UA 0.2 0.2 - 12 mg/dL Leukocytes, UA Negative Negative - 500+++ Flori/mcL Nitrite, UA Negative Negative - Positive Urine 09/13/2024 11:5 6 AM EDT Selina Denson NP POINT OF CARE TEST ENTER/EDIT ORDERABLES Final Result documented in this encounter Visit Diagnoses Diagnosis History of gestational diabetes- Primary Personal history of other genital system and obstetric disorders Third trimester ([facility]) state, incidental 31 weeks gestation of ([facility]) History of gestational diabetes Personal history of other genital system and obstetric disorders documented in this encounter Additional Health Concerns Active Problems Noted Date Diagnosed Date OB Reminders 04/30/2024 documented as of this encounter Care Teams Furniture Crater Relationship Specialty Start Date End Date Omer Velazquez MD [address] [facility] [address] [place] [address] PCP - General Internal Medicine 10/05/22 documented as of this encounter
--- OUTSIDE RECORDS SUMMARY | 2024-09-25 13:00 | XMS_ITS | Encounter Summary ---
Author Organization [facility] Address [address] [place] [address] Care Team Providers Care Territory Account Manager Name Role Phone Omer Velazquez MD Primary Care Provider [phone] Reason for Visit * Reason Comments Routine Visit Encounter Details Date Type Department Care Team (Late st Contact Info) Description 09/25/2024 1:00 PM EDT Routine [facility] OB [address] [place] [phone] Saravanan Ahumada, DO [address] [facility] [place] [address] Third trimester ([facility]); Insulin controlled gestational diabetes mellitus (GDM) during , antepartum ([facility]); 32 weeks gestation of ([facility]) Social History Tobacco Use Types Packs/Day [...] Relation Name Age of Onset Hypertension Mother Setee Other (SDHA) Mother Estee Asthma Father Franklin [...] nursing note reviewed. Exam conducted with a product designer present. Vitals: Estimated body mass index is 39.95 kg/m?? as calculated from the following: Height as of 07/18/24: 5' 3 . Weight as of this encounter: 225 lb 8 oz. BP: 130/80 Patient's last menstrual period was 02/13/2024 (approximate). ASSESSMENT & PLAN ICD-10-CM 1. Third trimester ([facility]) Z34.93 POCT urinalysis dipstick manually resulted 2. Insulin controlled gestational diabetes mellitus (GDM) during , antepartum ([facility]) O24.414 3. 32 weeks gestation of ([facility]) Z3A.32 Return OB: Patient presents today for [...] Routine [facility] [address] [facility] [phone] Saravanan Ahumada DO [address] [place] [address] 07/24/2025 9:15 AM EDT Office Visit [facility] [address] [place] [address] documented as of this encounter Goals Goal Patient Goal Type Associated Problems Recent Progress Patient-Stated? Author Reminders Care Plan OB Reminders No Open Scheduling, Background documented as of this encounter Procedures Procedure Name Priority Date/Time Associated Diagnosis Comments POCT URINALYSIS DIPSTICK Routine 09/25/2024 1:34 PM EDT Third trimester ([facility]) documented in this encounter Results * (ABNORMAL) [...] Positive Urine 09/25/2024 1:34 PM EDT Saravanan Ahumada DO POINT OF CARE TEST ENTER/EDIT OR DERABLES Final Result documented in this encounter Visit Diagnoses Diagnosis Third trimester ([facility]) state, incidental Insulin controlled gestational diabetes mellitus (GDM) during , antepartum ([facility]) 32 weeks gestation of ([facility]) documented in this encounter Additional Health Concerns Active Problems Noted Date Diagnosed Date OB Reminders 04/30/2024 documented as of this encounter Care Teams Territory Account Manager Relationship Specialty Start Date End Date Omer Velazquez MD [address] [place] [address] PCP - General Internal Medicine 10/05/22 documented as of this encounter
--- OUTSIDE RECORDS SUMMARY | 2024-10-02 10:30 | XMS_ITS | Encounter Summary ---
Author Organization [facility] Address [address] [place] [address] Care Team Providers Care Weather Forecaster Name Role Phone Omer Velazquez MD Primary Care Provider [phone] Encounter Details Date Type Department Care Team (Latest Contact Info) Description 10/02/2024 10:30 AM EDT Ancillary Procedure [facility] [address] [place] [address] History of gestational diabetes Social History Tobacco Use Types Packs/Day Years [...] AM EDT Routine [facility] [address] [facility] [place] [id number] Saravanan Ahumada, DO [address] [facility] [place] [address] 07/24/2025 9:15 AM EDT Office Visit [facility] [address] [place] [id number] documented as of this encounter Goals Goal Patient Goal Type Associated Problems Recent Progress Patient-Stated? Author Reminders Care Plan OB Reminders No Open Scheduling, Background documented as of this encounter Procedures Procedure Name Priority Date/Time Associated Diagnosis Comments US OB FOLLOW UP TRANSABDOMINAL APPROACH Routine 10/02/2024 11:00 AM EDT History of gestational diabetes documented in this encounter Results * US [...] IMG OB US PROCEDURES Final Re sult documented in this encounter Visit Diagnoses Diagnosis History of gestational diabetes Personal history of other genital system and obstetric disorders documented in this encounter Additional Health Concerns Active Problems Noted Date Diagnosed Date OB Reminders 04/30/2024 documented as of this encounter Care Teams Weather Forecaster Relationship Specialty Start Date End Date Omer Velazquez MD [address] [place] [address] PCP - General Internal Medicine 10/05/22 documented as of this encounter
--- OUTSIDE RECORDS SUMMARY | 2024-10-02 11:00 | XMS_ITS | Encounter Summary ---
Author Organization [facility] Address [address] [place] [address] Care Team Providers Care Flavoring Oil Filterer Name Role Phone Omer Velazquez MD Primary Care Provider [phone] Reason for Visit * Reason Comments Routine Visit Encounter Details Date Type Department Care Team (Late st Contact Info) Description 10/02/2024 11:00 AM EDT Routine [facility] [address] [place] [address] Saravanan Ahumada, DO [address] [facility] [address] [place], [facility] Herpes simplex (Primary Dx); 33 weeks gestation of ([facility]); Encounter for routine care ([facility]); Third trimester ([facility]) Social History Tobacco Use Types Packs/Day Years [...] Sign Reading Time Taken Comments Blood Pressure 136/84 10/02/2024 11:12 AM EDT Pulse - - Temperature - - Respiratory Rate - - Oxygen Saturation - - Inhaled Oxygen Concentration - - Weight 103 kg (226 lb 6.4 oz) 10/02/2024 11:12 A M EDT Height - - Body Mass Index 40.1 07/18/2024 9:20 AM EDT documented in this encounter Progress Notes * Selina Denson NP - 10/02/2024 11:00 AM EDT Reason for Appointment: Patient ID: [...] nursing note reviewed. Exam conducted with a stock manager present. Vitals: Estimated body mass index is 40.1 kg/m?? as calculated from the following: Height as of 07/18/24: 5' 3 . Weight as of this encounter: 226 lb 6.4 oz. BP: 136/84 Patient's last menstrual period was 02/13/2024 (approximate). ASSESSMENT & PLAN ICD-10-CM 1. 33 weeks gestation of ([facility]) Z3A.33 POCT urinalysis dipstick manually resulted 2. Encounter for routine care ([facility]) Z34.90 POCT urinalysis dipstick manually resulted 3. Third trimester ([facility]) Z34.93 POCT urinalysis dipstick manually resulted Return OB: Patient presents today for a routine obstetrics appointment. Patient is currently 33w1d . Patient states she is doing well but has complaints of being tired due to current . Patient has verbalizes frequent movement. labor precautions was discussed/given and patient was instructed to perform kick counts three times a day. Orders Placed This Encounter Procedures POCT urinalysis dipstick manually resulted Follow Up: Patient is to return to office in 1 week for routine OB appointment. Continue with Lantus and glucose is being transmitted to [facility]. Continue NST/BPP. Recent epistaxis and discontinued Valtrex and changed to acyclovir. Documented by Selina Denson NP on behalf of: Saravanan Ahumada DO documented in this encounter Plan of Treatment Upcoming Encounters Date Type Department Care Team (Late st Contact Info) Description 10/09/2024 9:00 AM EDT Routine [facility] B[facility] OB [address] [facility] [place] [id number] Saravanan Ahumada DO [address] [place] [address] 07/24/2025 9:15 AM EDT Office Visit [facility] [address] [place] [address] documented as of this encounter Goals Goal Patient Goal Type Associated Problems Recent Progress Patient-Stated? Author Reminders Care Plan OB Reminders No Open Scheduling, Background documented as of this encounter Procedures Procedure Name Priority Date/Time Associated Diagnosis Comments POCT URINALYSIS DIPSTICK Routine 10/02/2024 11:23 AM EDT 33 weeks gestation of ([facility]) Encounter for routine care ([facility]) Third trimester ([facility]) documented in this encounter Results * (ABNORMAL) POCT urinalysis dipstick manually resulted (10/02/2024 11:23 AM EDT) Color, UA Yellow Clarity, UA Clear Glucose, UA Negative Negative - 2000(110) ++++ mg/dL Bilirubin, UA Negative Negative - 4(70) +++ mg/dL Ketones, UA Negative Negative - 160(16) ++++ mg/dL Spec Grav, UA 1.010 1 - 1.03 Blood, UA Negative Negative - 50 Jorge Luis/mcL pH, UA 7.0 5 - 9 Protein, UA Trace Negative - 2000(20) ++++ mg/dL Urobilinogen, UA 0.2 0.2 - 12 mg/dL Leukocytes, UA Negative Negative - 500+++ Flori/mcL Nitrite, UA Negative Negative - Positive Urine 10/02/2024 11:2 3 AM EDT Saravanan Zita DO POINT OF CARE TEST ENTER/EDIT OR DERABLES Final Result documented in this encounter Visit Diagnoses Diagnosis Herpes simplex- Primary Herpes simplex without mention of complication 33 weeks gestation of ([facility]) Encounter for routine care ([facility]) Third trimester ([facility]) state, incidental documented in this encounter Additional Health Concerns Active Problems Noted Date Diagnosed Date OB Reminders 04/30/2024 documented as of this encounter Care Teams Flavoring Oil Filterer Relationship Specialty Start Date End Date Omer Velazquez MD [address] [place] [address] PCP - General Internal Medicine 10/05/22 documented as of this encounter
--- OUTSIDE RECORDS SUMMARY | 2024-10-06 08:20 | XMS_ITS | Encounter Summary ---
Author Organization [facility] Address [address] [place] [address] Care Team Providers Care Probate Paralegal Name Role Phone Robles Goldsmith DO Unavailable [phone] Josefina Harris RN Unavailable [phone] Source Comments In the event this information is protected by the Federal Confidentiality of Alcohol and Drug AbusePatient Records regulations: The Federal rules restrict any use of the information to criminally investigate or prosecute any alcohol or drug abuse patient.[facility] Encounter Details Date Type Department Care Team (Late st Contact Info) Description 03/23/2023 Patient Msg [address] [address] Provider, Ccf Appointment Reschedule Social History Tobacco [...] on filedocumented in this encounter Care Teams Probate Paralegal Relationship Specialty Start Date End Date Robles Goldsmith DO [address] [facility] [address] [place] [address] Referring Obstetrics 10/13/22 Josefina Harris, ARIC [address] [place] [address] Specialty Controls Designer 04/12/24 documented as of this encounter
--- OUTSIDE RECORDS SUMMARY | 2024-10-06 08:20 | XMS_ITS | Encounter Summary ---
Author Organization [facility] Address [address] [place] [address] Care Team Providers Care Director Property Name Role Phone Lito Guerrero MD Primary Care Provider [phone] Encounter Details Date Type Department Care Team [...] Department Care Team (Late Contact Info) Description 10/09/2024 9:00 AM EDT Routine [facility] BCP OB [address] [facility] [address] Saravanan Ahumada DO [address] [facility] [address] [place] [address] 07/24/2025 9:15 AM EDT Office Visit [facility] [address] [facility] [address] [place] [address] documented as of this encounter Goals Goal [...] PM EDT Narrative 09/27/2024 5:11 PM EDT [place] [id number] Ultrasound Report Signed Patient: LITO ROJAS MR#: [id number] : 1995 Acct:[id number] Age/Sex: 29 / F ADM Date: 09/27/24 Loc: [facility] 250-[address]: Saravanan Ahumada D.O. Ordering Physician: Saravanan Ahumada D.O. Date of Service: 09/27/24 Procedure(s): US OB BPP w non-stress Accession Number(s): [id number] cc: Saravanan Ahumada D.O.; LITO GUERRERO [address] [address] Patient Name: LITO ROJAS MRN: [id number] date: 1995 Sex: F Assigned Patient Location: [facility] Current Patient Location: [facility] Accession/Order Number: [id number] Exam Date: 09/27/2024 17:07 Report Date: 09/27/2024 17:08 At the request of: SARAVANAN AHUMADA DO Procedure: US OB BPP w non-stress Biophysical profile. Reason for exam: Gestational diabetes. COMPARISON: None. TECHNIQUE: Transabdominal imaging of the gravid uterus was obtained. FINDINGS: The magnetizer reports the biophysical profile of 8 out of 8. RAKESH is normal at 18.6 cm. heart rate 145 bpm. US/US OB BPP w non-stress IMPRESSION: BPP 8 out of 8. Impression dictated by: Navjot Harmon Jr., D.O. 09/27/2024 5:08 PM Dictation Location: [place] [address] Electronically authenticated by: [id number] Y Date: 09/27/2024 17:08 Dictated By: Navjot Harmon M.D. Signed By: 09/27/241710 DD/ 07 TD/TT: Baseball Scout: Procedure Note Radiology, Radiologist, MD - 09/27/2024 [place] [address] Ultrasound Report Signed Patient: LIOT ROJAS FMR#: [id number] : 1995Acct:[id number] Age/Sex: 29 / FADM Date: 09/27/24 Loc: [facility] 250-[address]: Saravanan Ahumada D.O. Ordering Physician: Saravanan Ahumada D.O. Date of Service: 09/27/24 Procedure(s): US OB BPP w non-stress Accession Number(s): [id number] cc: Saravanan Ahumada D.O.; LITO GUERRERO [address] [address] Patient Name: LITO ROJAS MRN: [id number] date: 1995 Sex: F Assigned Patient Location: [facility] Current Patient Location: [facility] Accession/Order Number: [id number] Exam Date: 09/27/2024 17:07 Report Date: 09/27/2024 17:08 At the request of: SARAVANAN AHUMADA DO Procedure: US OB BPP w non-stress Biophysical profile. Reason for exam: Gestational diabetes. COMPARISON: None. TECHNIQUE: Transabdominal imaging of the gravid uterus was obtained. FINDINGS: The magnetizer reports the biophysical profile of 8 out of 8.RAKESH is normal at 18.6 cm. heart rate 145 bpm. US/US OB BPP w non-stress IMPRESSION: BPP 8 out of 8. Impression dictated by: Navjot Harmon Jr., D.O. 09/27/2024 5:08 PM Dictation Location: [facility] Electronically authenticated by: [id number] Y Date: 7:08 Dictated By: Navjot Harmon M.D. Signed By:09/27/24 1711 DD/ 1708 TD/TT: Baseball Scout: us Generic External Data Provider [facility] Final Result documented in this encounter Visit Diagnoses Not on filedocumented in this encounter Additional Health Concerns Active Problems Noted Date Diagnosed Date OB Reminders 04/30/2024 documented as of this encounter Care Teams Director Property Relationship Specialty Start Date End Date Lito Guerrero MD [address] [facility] [address] [place] [address] PCP - General Internal Medicine 10/05/22 documented as of this encounter
--- OUTSIDE RECORDS SUMMARY | 2024-10-06 08:20 | XMS_ITS | Encounter Summary ---
Author Organization [facility] Address [address] [place] [address] Care Team Providers Care Global Supply Chain Director Name Role Phone Robles Goldsmith DO Unavailable [phone] Josefina Harris RN Unavailable [phone] Source Comments In the event this information is protected by the Federal Confidentiality of Alcohol and Drug AbusePatient Records regulations: The Federal rules restrict any use of the information to criminally investigate or prosecute any alcohol or drug abuse patient.[facility] Encounter Details Date Type Department Care Team (Latest Contact Info) Description 05/25/2023 Patient Msg Reproductive Endocrinology Infertility [address] [place] [address] Shaina Parr MD [address] [place], [place] [phone] Appointment Request Social History Tobacco Use Types [...] on filedocumented in this encounter Care Teams Global Supply Chain Director Relationship Specialty Start Date End Date Robles Goldsmith DO [address] [place] [address] Referring Obstetrics 10/13/22 [place] [address] [place] [address] 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
--- OUTSIDE RECORDS SUMMARY | 2024-10-06 08:21 | XMS_ITS | Encounter Summary ---
Author Organization [facility] Address [address] [place] [address] Care Team Providers Care Chocolate Coater Name Role Phone Robles Goldsmith DO Unavailable [phone] Josefina Harris RN Unavailable [phone] Source Comments In the event this information is protected by the Federal Confidentiality of Alcohol and Drug AbusePatient Records regulations: The Federal rules restrict any use of the information to criminally investigate or prosecute any alcohol or drug abuse patient.[facility] Encounter Details Date Type Department Care Team (Late st Contact Info) Description 03/24/2024 Patient [facility] -[address] [place] [address] Cee Palafox RPh At your next appointment, choose [facility]. Social History Tobacco Use Types [...] risk 4 12/21/2023 Data from: https://www.neighborhoodatlas.medicine.[facility].edu/. Last address used for calculation [address] [place] [address] 12/21/2023 Comments Yes Sex and Gender Information Value Date Recorded Sex Assigned at Female 01/04/2023 6:38 PM EDT Legal Sex Female 10:39 AM EDT Gender Identity Female 01/04/2023 6:38 PM EDT Sexual Orientation Not on file documented as of this encounter Plan of Treatment Not on file documented as of this encounter Visit Diagnoses Not on filedocumented in this encounter Care Teams Chocolate Coater Relationship Specialty Start Date End Date Robles Goldsmith DO [address] [facility] [address] [place] [address] Referring Obstetrics 10/13/22 [place] [address] [address] [facility] [address] Specialty Landing Signal Officer 04/12/24 documented as of this encounter
--- OUTSIDE RECORDS SUMMARY | 2024-10-06 08:21 | XMS_ITS | Encounter Summary ---
Author Organization [facility] Address [address] [place] [address] Care Team Providers Care Charcoal Burner Beehive Kiln Name Role Phone Robles Goldsmith DO Unavailable [phone] Josefina Harris RN Unavailable [phone] Source Comments In the event this information is protected by the Federal Confidentiality of Alcohol and Drug AbusePatient Records regulations: The Federal rules restrict any use of the information to criminally investigate or prosecute any alcohol or drug abuse patient.[facility] Encounter Details Date Type Department Care Team (Late st Contact Info) Description 11/22/2023 Patient Msg Reproductive Endocrinology Infertility [address] [place], [place] [id number] Provider, Ccf plan for 11/22/23 Social History [...] on filedocumented in this encounter Care Teams Charcoal Burner Beehive Kiln Relationship Specialty Start Date End Date Robles Goldsmith DO [address] [facility] [address] [place] [address] Referring Obstetrics 10/13/22 [place] [address] [place] [address] Specialty Trucking Contractor 04/12/24 documented as of this encounter
--- OUTSIDE RECORDS SUMMARY | 2024-10-06 08:21 | XMS_ITS | Encounter Summary ---
Author Organization [facility] Address [address] [place] [address] Care Team Providers Care Fire Alarm Operator Name Role Phone Omer Velazquez MD Primary Care Provider [phone] Encounter Details Date Type Department Care Team (Late st Contact Info) Description 05/23/2024 Abstract [facility] OB [address] [facility] [address] Kayla Ashley LPN [...] AM EDT Routine [facility] B[facility] OB [address] [facility] [address] Saravanan Ahumada, [address] [facility] [place] [address] 07/24/2025 9:15 AM EDT Office Visit [facility] [address] [place] [address] documented as of this encounter Goals Goal Patient Goal Type Associated Problems Recent Progress Patient-Stated? Author Reminders Care Plan OB Reminders No Open Scheduling, Background documented as of this encounter Visit Diagnoses Not on filedocumented in this encounter Additional Health Concerns Active Problems Noted Date Diagnosed Date OB Reminders 04/30/2024 documented as of this encounter Care Teams Fire Alarm Operator Relationship Specialty Start Date End Date Omer Velazquez MD [address] [place] [address] PCP - General Internal Medicine 10/05/22 documented as of this encounter
--- OUTSIDE RECORDS SUMMARY | 2024-10-06 08:21 | XMS_ITS | Encounter Summary ---
Author Organization [facility] Address [address] [place] [address] Care Team Providers Care Global Marketing Coordinator Name Role Phone Robles Goldsmith DO Unavailable [phone] Josefina Harris RN Unavailable [phone] Source Comments In the event this information is protected by the Federal Confidentiality of Alcohol and Drug AbusePatient Records regulations: The Federal rules restrict any use of the information to criminally investigate or prosecute any alcohol or drug abuse patient.[facility] Encounter Details Date Type Department Care Team (Latest Contact Info) Description 02/23/2023 Get Medical Advice Reproductive Endocrinology Infertility [address] [place] [address] Shaina Parr MD [address] [place], [place] [phone] Fax blood work order Social History Tobacco [...] filedocumented in this encounter Care Teams Global Marketing Coordinator Relationship Specialty Start Date End Date Robles Goldsmith DO [address] [facility] [address] [place] [address] Referring Obstetrics 10/13/22 [place] [address] [place] [address] Specialty Final Assembly Inspector 04/12/24 documented as of this encounter
--- OUTSIDE RECORDS SUMMARY | 2024-10-06 08:21 | XMS_ITS | Encounter Summary ---
Author Organization [facility] Address [address] [place] [address] Care Team Providers Care Medical Review Specialist Name Role Phone Omer Velazquez MD Primary Care Provider [phone] Encounter Details Date Type Department Care Team (Late st Contact Info) Description 05/22/2024 Abstract [facility] OB [address] [place] [address] Saravanan Ahumada, DO [address] [place], [facility]11 Social History Tobacco Use Types Packs/Day [...] [facility] [place] [address] Saravanan Ahumada, DO [address] [facility] [place] [address] 07/24/2025 9:15 AM EDT Office Visit [facility] [address] [place] [address] documented as of this encounter Goals Goal Patient Goal Type Associated Problems Recent Progress Patient-Stated? Author Reminders Care Plan OB Reminders No Open Scheduling, Background documented as of this encounter Visit Diagnoses Not on filedocumented in this encounter Additional Health Concerns Active Problems Noted Date Diagnosed Date OB Reminders 04/30/2024 documented as of this encounter Care Teams Medical Review Specialist Relationship Specialty Start Date End Date Omer Velazquez MD [address] [place] [address] PCP - General Internal Medicine 10/05/22 documented as of this encounter
--- OUTSIDE RECORDS SUMMARY | 2024-10-06 08:21 | XMS_ITS | Encounter Summary ---
Author Organization [facility] Address [address] [place] [address] Care Team Providers Care Receivable Executive Name Role Phone Omer Velazquez MD Primary Care Provider [phone] Encounter Details Date Type Department Care Team (Late st Contact Info) Description 09/25/2024 Bamboo flowsheet [facility] OB [address] [place] [address] Saravanan Ahumada, DO [address] [place], [facility] Social History Tobacco Use Types Packs/Day Years [...] OB [address] [facility] [place] [address] Saravanan Ahumada, DO [address] [facility] [place] [address] 07/24/2025 9:15 AM EDT Office Visit [facility] [address] [place] [address] documented as of this encounter Goals Goal Patient Goal Type Associated Problems Recent Progress Patient-Stated? Author Reminders Care Plan OB Reminders No Open Scheduling, Background documented as of this encounter Visit Diagnoses Not on filedocumented in this encounter Additional Health Concerns Active Problems Noted Date Diagnosed Date OB Reminders 04/30/2024 documented as of this encounter Care Teams Receivable Executive Relationship Specialty Start Date End Date Omer Velazquez MD [address] [place] [address] PCP - General Internal Medicine 10/05/22 documented as of this encounter
--- OUTSIDE RECORDS SUMMARY | 2024-10-06 08:21 | XMS_ITS | CCD ---
Author Organization [facility] ion [facility] Care Team Providers Care Sulfuric Acid Plant Supervisor Name Role Phone LITO VELAZQUEZ Admitting Unavailable LITO VELAZQUEZ Attending Unavailable Josefina Kay Unavailable Robles Goldsmith DO Unavailable FEDE HAIRSTON Referring Unav Lito Duarte MD Primary Care Provider [phone] JAILENE HOWARD Referring Unavailable FEDE HAIRSTON Referring Unav ailable FEDE HAIRSTON Referring Unav Lito Duarte MD Primary Care Provider RUBY CANO Attending Unavailable LITO VELAZQUEZ Primary Care Unavailable GABRIEL BLACKWELL Attending Unavailable LITO VELAZQUEZ Primary Care Unavailable Josefina Harris RN Unavailable Lito Velazquez MD Primary Care Provider Jaime Davies RN Attending Provider Unavailable Primary Care Provider UnavailJosefina Thomas RN Unavailable GALLAGHERMIRTA Attending Unavailable ATTARAN, DESHAWN Referring Unavailable ATTARAN, [...] Referring Unavailable TANTIBHEDHYANGKAMARA, FEDE Attending Unav ailable YUNI, ORTEGA Referring Unavailable VANESSA VO Attending Unavailable MINDVALERIE, ORTEGA Referring Unavailable МАРИЯ LABOY Attending Unavailable NEREYDA ZHENG Attending Unavailable ZITA, SARAVANAN R Referring Unavailable RUTHANN POE Attending Unavailable ZITA, SARAVANAN R Referring Unavailable ALTON REBOLLEDO Attending Unavailable ZITA, SARAVANAN R Referring Unavailable Lito Velazquez Primary Care Unavailable Samson, Jaime Ribeiro Attending Unavailable Jaime Davies Admitting Unavailable ZITA, SARAVANAN Attending Unavailable ANDREW FERRER Attending Unavailable ZITA, SARAVANAN Attending Unavailable ZITA, SARAVANAN Referring Unavailable ZITA, SARAVANAN Attending Unavailable CESAR, LITO Ribeiro Attending Unavailable RUPAL LEONE Attending Unavailable ZITA, SARAVANAN Attending Unavailable ZITA, SARAVANAN Referring Unavailable ZITA, SARAVANAN Attending Unavailable LITO VELAZQUEZ Referring Unavailable ROBLES GOLDSMITH Attending Unavailable ZITA, SARAVANAN Attending Unavailable ZITA, SARAVANAN Attending Unavailable Medications Current Medications Medication Drug Class(es) Dates Sig (Normalized) Sig (Original) acetaminophen 325 mg oral capsule (1 source) Start: 06-25-2019 take 2 capsules by mouth every four to six hours as needed for pain Acetaminophen 325 mg capsule Active 650 MG PO EVERY 4-6 HOURS as needed for pain 60 June 25, 2019 12:00am acyclovir 400 mg oral tablet (3 sources) Herpesvirus Nucleoside Analog DNA Polymerase Inhibitor, Herpes Simplex Virus Nucleoside Analog DNA Polymerase Inhibitor, Herpes Zoster Virus Nucleoside Analog DNA Polymerase Inhibitor Start: 10-02-2024 End: 11-01-2024 take 1 tablet by mouth in the morning acyclovir (Zovirax) 400 MG tablet Indications: Herpes simplex Take 1 tablet (400 mg) by mouth in the morning and 1 tablet (400 mg) before bedtime. 60 tablet 11 10/02/2024 11/01/2024 Active [id number] 200 actuat albuterol 0.09 mg/actuat metered dose inhaler (19 sources) beta2-Adrenergic Agonist Start: 08-15-2024 End: 08-15-2025 take 2 puff(s) by inhalation every six hours for wheezing albuterol HFA (Ventolin HFA) 90 mcg/act inhaler Indications: Seasonal allergies Inhale 2 puffs every 6 (six) hours if needed for wheezing 18 g 5 08/15/2024 08/15/2025 Active Blood Glucose Monitoring Suppl (D-Care Glucometer) w/Device kit (15 sources) Start: 08-25-2024 End: 08-25-2025 Blood Glucose Monitoring Suppl (D-Care Glucometer) w/Device kit Indications: Gestational diabetes mellitus (GDM), antepartum, gestational diabetes method of control unspecified ([facility]) , Elevated glucose tolerance test 1 kit [...] ml insulin glargine 100 unt/ml pen injector (15 sources) Insulin Analog Start: 09-20-2024 insulin glargine (LANTUS SOLOSTAR U-100 INSULIN) 100 unit/mL (3 mL) insulin pen Indications: Gestational diabetes requiring insulin Inject 16 units every evening. Prime with 2 units. 15 mL 2 09/20/2024 Active Start: 09-12-2024 End: 09-20-2024 Lantus SoloStar 100 UNIT/ML pen Inject 12 units every evening. Prime with 2 units. 09/12/2024 Active isopropyl alcohol 0.7 ml/ml medicated pad (15 sources) Start: 08-25-2024 Alcohol Swabs (Alcohol Prep Pad) 70 % pads Indications: Gestational diabetes mellitus (GDM), antepartum, gestational diabetes method of control unspecified ([facility]) , Elevated glucose tolerance test Apply 1 [...] ( 1 PO) Take by mouth Active tr925-fvrn-kjhhi acid ( 19) 29 mg iron- 1 mg tablet,chewable (10 sources) if308-shvy-xmvxs acid ( 19) 29 mg iron- 1 mg tablet,chewable Chew 1 tablet and swallow in the morning. Active valACYclovir 500 mg oral tablet (14 sources) Herpesvirus Nucleoside Analog DNA Polymerase Inhibitor, [...] Dates Sig (Normalized) Sig (Original) chorionic gonadotropin 51132 unt/ml injectable solution (13 sources) Gonadotropin Start: 02-17-2024 End: 03-17-2024 inject 80888 [IU] by subcutaneous injection once chorionic gonadotropin [...] day 3-7 Take 2 tablets by mo [facility] once daily. Take day 3-7 of her [...] 08-17-2023 Chronic Other and delivery including normal (20 sources) test positive; Translations: [Encounter for test, [...] [32 weeks gestation of ] 09-25-2024 Episodic Residual codes; unclassified (2 sources) Gestation period, 33 weeks; Translations: [33 weeks gestation of ] 10-02-2024 Episodic Superficial injury; contusion (1 source) Contusion of left knee; Translations: [Contusion of left knee, initial encounter] 06-25-2019 Episodic Unclassified (20 sources) OB Reminders Onset: 04-30-2024 Unclassified (1 source) Elevated Glucose Tolerance Test Onset: Urinary tract infections (1 source) Urinary tract infectious disease; Translations: [Urinary tract infection, site not specified] 05-15-2024 Episodic Viral infection (20 sources) Genital herpes simplex; 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 Ordering Physician: Saravanan Ahumada D.O. Date of Service: 10/03/24 Procedure(s): OB BPP w non-stress Accession Number(s): [id number] cc: Saravanan Ahumada D.O.; LITO VELAZQUEZ [place] [address] Patient Name: LISSA RIVAS MRN: [facility]:[id number] date: 1995 Sex: F Assigned Patient Location: Current Patient Location: Accession/Order Number: [id number] Exam Date: 10/04/2024 07:11 Report Date: 10/04/2024 07:13 At the request of: SARAVANAN AHUMADA DO Procedure: US OB BPP w non-stress BIOPHYSICAL PROFILE: CLINICAL INFORMATION: HISTORY OF GESTATIONAL DIABETES Z86.32 COMPARISON: 09/27/2024 There is a single live intrauterine gestation in cephalic presentation. The reported gestational age is 33 weeks 2 days. The heart rate measures 145 beats per minute. A nuchal cord is suspected. FINDINGS: TONE: 1 or more episodes of activity extension and flexion of extremity or opening and closing of the hand [Y] 2/2 GROSS BODY MOVEMENTS: 3 or more discrete body or limb movements [Y] 2/2 BREATHING MOVEMENTS: 1 or more episodes of breathing lasting at least 30 seconds [Y] 2/2 RAKESH: A single deepest vertical pocket of amniotic fluid greater than 2 cm [Y] 2/2 RAKESH: 16.1 cm. This is in upper normal range. Total score: 8/8 US/ OB BPP w non-stress IMPRESSION: NORMAL BIOPHYSICAL PROFILE. SUSPECTED NUCHAL CORD. Impression dictated by: Paula Gage M.D. 10/04/2024 7:13 AM Dictation Location: [place] [address] Electronically authenticated by: [id number] Y Date: 10/04/2024 07:13 Dictated By: Paula Gage M.D. Signed By: 10/04/2416 DD/ TD/TT: Crime Lab Technician: [facility] Radiology, Radiologist, - 10/04/2024 [place] [address] Ultrasound Report Signed Patient: LISSA RIVAS MR#: [id number] : 1995 Acct:[id number] Age/Sex: 29 / F ADM Date: 10/03/24 Loc: US Attending Dr: Saravanan Ahumada D.O. Ordering Physician: Saravanan Ahumada D.O. Date of Service: 10/03/24 Procedure(s): US OB BPP w non-stress Accession Number(s): [id number] cc: Saravanan Ahumada D.O.; LITO VELAZQUEZ [place] [address] Patient Name: LISSA RIVAS MRN: [facility]:[id number] date: 1995 Sex: F Assigned Patient Location: US Current Patient Location: Accession/Order Number: [id number] Exam Date: 10/04/2024 07:11 Report Date: 10/04/2024 07:13 At the request of: SARAVANAN AHUMADA DO Procedure: US OB BPP w non-stress BIOPHYSICAL PROFILE: CLINICAL INFORMATION: HISTORY OF GESTATIONAL DIABETES Z86.32 COMPARISON: 09/27/2024 There is a single live intrauterine gestation in cephalic presentation. The reported gestational age is 33 weeks 2 days. The heart rate measures 145 beats per minute. A nuchal cord is suspected. FINDINGS: TONE: 1 or more episodes of activity extension and flexion of extremity or opening and closing of the hand [Y] 2/2 GROSS BODY MOVEMENTS: 3 or more discrete body or limb movements [Y] 2/2 BREATHING MOVEMENTS: 1 or more episodes of breathing lasting at least 30 seconds [Y] 2/2 RAKESH: A single deepest vertical pocket of amniotic fluid greater than 2 cm [Y] 2/2 RAKESH: 16.1 cm. This is in upper normal range. Total score: 8/8 US/US OB BPP w non-stress IMPRESSION: NORMAL BIOPHYSICAL PROFILE. SUSPECTED NUCHAL CORD. Impression dictated by: Paula Gage M.D. 10/04/2024 7:13 AM Dictation Location: [place] [address] Electronically authenticated by: [id number] Y Date: 10/04/2024 07:13 Dictated By: Paula Gage M.D. Signed By: 10/04/24715 DD/ 2 TD/TT: Crime Lab Technician: [facility] Radiology Study observation (narrative) [facility] US OB BPP W NON-STRESS Ordered By: Radiologist Radiology on 10-04-2024 [facility] [employer] Work Phone: US OB FOLLOW UP TRANSABDOMIN AL APPROACHon 10-02-2024 US OB FOLLOW UP TRANSABDOMINAL APPROACH FINDINGS: A single, live intrauterine is present [...] BY: ELECTRONICALLY SIGNED BY: Navjot Salvador MD Normal Not Available Comment on above: Order Comment: US OB SCAN FOR GROWTH Estimated Date of Delivery: 11/19/24 Gestational Age as of 09/13/2024: 30w3d Urinalysis macro (dipstick) panel (U)on 10-02-2024 Bilirubin, UA Negative Negative - 4(70) +++ mg/dL [facility] Blood, UA Negative Negative - 50 Jorge Luis/mcL [facility] Clarity, UA Clear [facility] Color, UA Yellow [facility] Glucose, UA Negative Negative - 1999(110) ++++ mg/dL [facility] Interpretation and review of laboratory results Abnormal [facility] Ketones, UA Negative Negative - 160(16) ++++ mg/dL [facility] Leukocytes, UA Negative Negative - 500+++ Flori/mcL [facility] Nitrite, UA Negative Negative - Positive [facility] pH, UA 7 5 - 9 [facility] Protein, UA Trace Negative - 1999(20) ++++ mg/dL [facility] Spec Grav, UA 1.01 1 - 1.03 [facility] Urobilinogen, UA 0.2 0.2 - 12 mg/dL [facility] US OB BPP W NON-STRESS on 09-27-2024 [place] [address] Ultrasound Report Signed Patient: LISSA RIVAS MR#: [id number] : 1995 Acct:[id number] Age/Sex: 29 / F ADM Date: 09/27/24 Loc: [place] [address]: Saravanan Ahumada D.O. Ordering Physician: Saravanan Ahumada D.O. Date of Service: 09/27/24 Procedure(s): US OB BPP w non-stress Accession Number(s): [id number] cc: Saravanan Ahumada D.O.; LITO VELAZQUEZ [place] [address] Patient Name: LISSA RIVAS MRN: [facility]:[id number] date: 1995 Sex: F Assigned Patient Location: [facility] Current Patient Location: [facility] Accession/Order Number: [id number] Exam Date: 09/27/2024 17:07 Report Date: 09/27/2024 17:08 At the request of: SARAVANAN AHUMADA DO Procedure: US OB BPP w non-stress Biophysical profile. Reason for exam: Gestational diabetes. COMPARISON: None. TECHNIQUE: Transabdominal imaging of the gravid uterus was obtained. FINDINGS: The therapeutic recreation director reports the biophysical profile of 8 out of 8. RAKESH is normal at 18.6 cm. heart rate 145 bpm. US/US OB BPP w non-stress IMPRESSION: BPP 8 out of 8. Impression dictated by: Navjot Harmon Jr., D.O. 09/27/2024 5:08 PM Dictation Location: [place] [address] Electronically authenticated by: [id number] Y Date: 09/27/2024 17:08 Dictated By: Navjot Harmon M.D. Signed By: 09/27/241710 DD/ 07 TD/TT: Crime Lab Technician: [facility] Radiology, Radiologist, - 09/27/2024 [place] [address] Ultrasound Report Signed Patient: LISSA RIVAS MR#: [id number] : 1995 Acct:[id number] Age/Sex: 29 / F ADM Date: 09/27/24 Loc: [place] [address]: Saravanan Ahumada D.O. Ordering Physician: Saravanan Ahumada D.O. Date of Service: 09/27/24 Procedure(s): US OB BPP w non-stress Accession Number(s): [id number] cc: Saravanan Ahumada D.O.; LITO VELAZQUEZ [place] [address] Patient Name: LISSA RIVAS MRN: [facility]:[id number] date: 1995 Sex: F Assigned Patient Location: [facility] Current Patient Location: [facility] Accession/Order Number: [id number] Exam Date: 09/27/2024 17:07 Report Date: 09/27/2024 17:08 At the request of: SARAVANAN AHUMADA DO Procedure: US OB BPP w non-stress Biophysical profile. Reason for exam: Gestational diabetes. COMPARISON: None. TECHNIQUE: Transabdominal imaging of the gravid uterus was obtained. FINDINGS: The therapeutic recreation director reports the biophysical profile of 8 out of 8. RAKESH is normal at 18.6 cm. heart rate 145 bpm. US/US OB BPP w non-stress IMPRESSION: BPP 8 out of 8. Impression dictated by: Navjot Harmon Jr., D.O. 09/27/2024 5:08 PM Dictation Location: [place] [address] Electronically authenticated by: [id number] Y Date: 09/27/2024 17:08 Dictated By: Navjot Harmon M.D. Signed By: 09/27/241710 DD/ 07 TD/TT: Crime Lab Technician: [facility] Radiology Study observation (narrative) [facility] US OB BPP W NON-STRESS Ordered By: Radiologist Radiology on 09-27-2024 [facility] Work Phone: Urinalysis macro (dipstick) panel (U)on 09-25-2024 Bilirubin, UA Negative Negative - 4(70) +++ mg/dL [facility] Blood, UA Negative Negative - 50 Jorge Luis/mcL [facility] Clarity, UA Clear [facility] Color, UA Yellow [facility] Glucose, UA Negative Negative - 2000(110) ++++ mg/dL [facility] Interpretation and review of laboratory results Abnormal [facility] Ketones, UA Positive Negative - 160(16) ++++ mg/dL [facility] Comment on above: 15mg/dL Leukocytes, UA Negative Negative - 500+++ Flori/mcL [facility] Nitrite, UA Negative Negative - Positive [facility] pH, UA 7 5 - 9 [facility] Protein, UA Positive Negative - 2000(20) ++++ mg/dL [facility] Comment on above: 30mg/dL Spec Grav, UA 1.02 1 - 1.03 [facility] Urobilinogen, UA 0.2 0.2 - 12 mg/dL [facility] TBH TOTAL PROTEIN 24 HOUR UR INEon 09-14-2024 Interpretation and review of laboratory results Abnormal [facility] Protein (U) [Mass/Vol] 16.8 mg/dL High NINF - 11.9 mg/dL [facility] TBH TOTAL PROTEIN 24 HOUR URINE 420 High NINF [facility] TOTAL VOLUME 24 HOUR URINE 2500 mL/24hr [facility] Urinalysis macro (dipstick) panel (U)on 09-13-2024 Bilirubin, UA Negative Negative - 4(70) +++ mg/dL [facility] Blood, UA Negative Negative - 50 Jorge Luis/mcL [facility] Clarity, UA Clear [facility] Color, UA Yellow [facility] Glucose, UA Negative Negative - 1999(110) ++++ mg/dL [facility] Interpretation and review of laboratory results Normal [facility] Ketones, UA Negative Negative - 160(16) ++++ mg/dL [facility] Leukocytes, UA Negative Negative - 500+++ Flori/mcL [facility] Nitrite, UA Negative Negative - Positive [facility] pH, UA 7 5 - 9 [facility] Protein, UA Negative Negative - 1999(20) ++++ mg/dL [facility] Spec Grav, UA 1.02 1 - 1.03 [facility] Urobilinogen, UA 0.2 0.2 - 12 mg/dL [facility] CBC without diffon CBC, Platelet Ct, and Diff see scanned report [facility] No Panel Informationon 09-12 [facility] TB UA (CLEAN/CATCH) SURFACE GRINDING MACHINE HAND/PO RO IF IND.on 09-12-2024 BILIRUBIN URINE Negative NEGATIVE [facility] BLOOD URINE Negative NEGATIVE [facility] Clarity (U) CLEAR CLEAR [facility] Color (U) LT. YELLOW YELLOW [facility] GLUCOSE URINE UA Negative NEGATIVE mg/dL [facility] Interpretation and review of laboratory results Abnormal [facility] Ketones Ql (U) TRACE Abnormal NEGATIVE mg/dL [facility] Leukocyte esterase Test strip Ql (U) Negative NEGATIVE [facility] NITRITE URINE Negative NEGATIVE [facility] pH (U) 6.5 [pH] 5.0 - 9.0 [facility] PROTEIN URINE Negative NEG/TRACE mg/dL [facility] SPECIFIC GRAVITY URINE <=1.005 Abnormal 1.005 - 1.025 [facility] URINE MICROSCOPIC INDICATED NO [facility] UROBILINOGEN URINE 0.2 EU/dL 0.2 - 1.0 EU/dL [facility] Urine protein creatinine rat ioon 06-17-2025 Protein/Creatinine (U) [Mass ratio] see scanned report [facility] US OB FOLLOW UP TRANSABDOMIN AL [...] II, MD, PHD at 08-Sep-2024 10:22:30 AM [facility] Normal Not Available Comment on above: Order Comment: US OB SCAN FOR GROWTH Estimated Date of Delivery: 11/19/24 Gestational Age as of 08/30/2024: 28w3d CNOVon 09-05-2024 CNOV Office Visit (OTMNCA ) LISSA RIVAS ([id number]) 1995 F Date Time Provider Department 09/05/24 1:45 PM МАРИЯ LABOY OTMNCA During your visit today, we recorded the [...] Status:Closed by МАРИЯ LABOY on 09/19/24 Normal [facility] METANEPHRINES, FREE PLASMAon 09-04-2024 METANEPHRINE, PLASMA 19 pg/mL Normal 12-[facility] Comment on above: Order Comment: Jarek leger Type: BLOOD SPECIMENOrdering Facility: [facility] Address: [address] [place] [address] Result Comment: Refe rence Ranges: Hypertensive adult > or = 18 yrs old: 12-72 pg/mL Normotensive adult > or = 18 yrs old: 12-67 pg/mL Normotensive children < 18 yrs old: 10-95 pg/mL Performed By: #### P METAN ####[facility] LABIA [id number] [place] [address] [place] NORMETANEPHRINE, PLASMA 56 pg/mL Normal 18-101 [facility] Comment on above: Order Comment: Jarek leger Type: BLOOD SPECIMENOrdering Facility: [facility] Address: [address] [place] [address] Result Comment: Refe rence Ranges: Hypertensive adult > or = 18 yrs old: 24-145 pg/mL Normotensive adult > or = 18 yrs old: 18-101 pg/mL Normotensive children < 18 yrs old: 22-83 pg/mL Methyldopa may cause false elevation of normetanephrine levels in this assay. If patient is on methyldopa, interpret results with caution. Performed By: #### P METAN ####[facility] LABCLIA [id number] [place] [address] [place] Glucose random or fasting- P OCTon 08-31-2024 External Glucose Fasting Or Random (Fbs) 99 [facility] Ultrasound - Officeon 2024 Radiology Study observation (narrative) [facility] Radiology Study observation (narrative) [facility] ECH echo transthoracicon ECH echo transthoracic [facility] [address] Echocardiogram Signed Patient: Lissa Rivas MR#: [id number] : 1995 Acct:[id number] Age/Sex: 29 / F ADM Date: 08/24/24 Loc: Room: Type: [facility] Attending Dr: Jamie Davies RN, MSN, [...] 1239 Signed By: Iveth Ding MD 08/24/24 9655 Normal [facility] ALL CBC WITH AUTO DIFFon BASOPHILS ABSOLUTE AUTO [facility] Basophils/100 WBC (Bld) 0.3 % 0.2 - 2.0 % [facility] Eosinophils/100 WBC (Bld) 1.4 % 0.9 - 7.0 % [facility] Erythrocyte distribution width (RBC) [Ratio] 13 % 11.0 - 15.0 % [facility] Hematocrit (Bld) [Volume fraction] 32 % Low 36.0 - 48.0 % [facility] Hemoglobin (Bld) [Mass/Vol] 10.6 g/dL Low 12.0 - 16.0 g/dL [facility] IMMATURE GRANULOCYTES ABS AUTO 0.06 High [facility] Immature granulocytes/100 WBC (Bld) 0.7 % High 0.0 - 0.5 % [facility] Interpretation and review of laboratory results Abnormal [facility] LYMPHOCYTES ABSOLUTE AUTO 1.7 [facility] Lymphocytes/100 WBC (Bld) 18.8 % Low 20.5 - 60.0 % [facility] MCH (RBC) [Entitic mass] 31.6 pg 26. 7 - 34.0 pg [facility] MCHC (RBC) [Mass/Vol] 33.1 g/dL 29.9 - 35.2 g/dL [facility] MCV (RBC) [Entitic vol] 95.5 fL 81.0 - 99.0 fL [facility] MONOCYTES ABSOLUTE AUTO 0.5 N [facility] Monocytes/100 WBC (Bld) 5.3 % 1.7 - 12.0 % [facility] NEUTROPHILS ABSOLUTE AUTO 6.5 [facility] Neutrophils/100 WBC (Bld) 73.5 % 43.0 - 75.0 % [facility] Platelet mean volume (Bld) [Entitic vol] 9.8 fL 9.5 - 13.5 fL [facility] TBH EO # 0.1 [facility] TBH PLT 211 [facility] TB RBC 3.35 Low [facility] TB WBC 8.8 [facility] Glucose 1h post 50g loadon 0 08-23-2024 Glucose, 1 hr PP 50GM dose 181 [facility] No Panel Informationon 08-23 [facility] Urinalysis macro (dipstick) panel (U)on 08-16-2024 Bilirubin, UA Negative Negative - 4(70) +++ mg/dL [facility] Blood, UA Negative Negative - 50 Jorge Luis/mcL [facility] Clarity, UA Clear [facility] Color, UA Yellow [facility] Glucose, UA Positive Negative - 1999(110) ++++ mg/dL [facility] Comment on above: 100mg/dL Interpretation and review of laboratory results Abnormal [facility] Ketones, UA Positive Negative - 160(16) ++++ mg/dL [facility] Comment on above: 15mg/dL Leukocytes, UA Negative Negative - 500+++ Flori/mcL [facility] Nitrite, UA Negative Negative - Positive [facility] pH, UA 6.5 5 - 9 [facility] Protein, UA Negative Negative - 2000(20) ++++ mg/dL [facility] Spec Grav, UA 1.02 1 - 1.03 [facility] Urobilinogen, UA 0.2 0.2 - 12 mg/dL [facility] US OB INCOMPLETE ANATOMYon 0 08-07-[address] [address] Ultrasound Report Signed Patient: LISSA RIVAS MR#: [id number] : 1995 Acct:[id number] Age/Sex: 29 / F ADM Date: 08/04/24 Loc: US Attending Dr: Saravanan Ahumada D.O. Ordering Physician: Saravanan Ahumada D.O. Date of Service: 08/04/24 Procedure(s): US OB incomplete anatomy Accession Number(s): [id number] cc: Saravanan Ahumada D.O.; LITO VELAZQUEZ [place] [id number] Patient Name: LISSA RIVAS MRN: [facility]:[id number] date: 1995 Sex: F Assigned Patient Location: US Current Patient Location: Accession/Order Number: [id number] Exam Date: 08/07/2024 09:41 Report Date: 08/07/2024 [...] Gage M.D. 08/07/2024 9:48 AM Dictation Location: [place] [address] Electronically authenticated by: [id number] Y Date: 08/07/2024 09:48 Dictated By: Paula Gage M.D. Signed By: 08/07/2450 DD/ 7 TD/TT: Crime Lab Technician: [facility] Radiology, Radiologist, MD - 08/07/2024 [place] [address] Ultrasound Report Signed Patient: LISSA RIVAS MR#: [id number] : 1995 Acct:[id number] Age/Sex: 29 / F ADM Date: 08/04/24 Loc: US Attending Dr: Saravanan Ahumada D.O. Ordering Physician: Saravanan Ahumada D.O. Date of Service: 08/04/24 Procedure(s): US OB incomplete anatomy Accession Number(s): [id number] cc: Saravanan Ahumada D.O.; LITO VELAZQUEZ [place] [id number] Patient Name: LISSA RIVAS MRN: [id number] date: 1995 Sex: F Assigned Patient Location: US Current Patient Location: Accession/Order Number: [id number] Exam Date: 08/07/2024 09:41 Report Date: 08/07/2024 [...] Gage M.D. 08/07/2024 9:48 AM Dictation Location: [place] [address] Electronically authenticated by: [id number] Y Date: 08/07/2024 09:48 Dictated By: Paula Gage M.D. Signed By: 08/07/24949 DD/ 7 TD/TT: Crime Lab Technician: [facility] Radiology Study observation (narrative) [facility] OB INCOMPLETE ANATOMYOrde red By: Radiologist Radiology on 08-07-2024 [facility] Work Phone: Urinalysis macro (dipstick) panel (U)on 07-17-2024 Bilirubin, UA Negative Negative - 4(70) +++ mg/dL [facility] Blood, UA Positive Negative - 50 Jorge Luis/mcL [facility] Comment on above: Trace-lysed Clarity, UA Clear [facility] Color, UA Yellow [facility] Glucose, UA Negative Negative - 2000(110) ++++ mg/dL [facility] Interpretation and review of laboratory results Abnormal [facility] Ketones, UA Negative Negative - 160(16) ++++ mg/dL [facility] Leukocytes, UA Negative Negative - 500+++ Flori/mcL [facility] Nitrite, UA Negative Negative - Positive [facility] pH, UA 7 5 - 9 [facility] Protein, UA Trace Negative - 2000(20) ++++ mg/dL [facility] Spec Grav, UA 1.02 1 - 1.03 [facility] Urobilinogen, UA 0.2 0.2 - 12 mg/dL [facility] US OB 14+ WEEKS ANATOMY SCAN [...] II, MD, PHD at 07-Jul-2024 06:23:52 AM [facility] Normal Not Available Comment on above: Order Comment: US OB ANATOMY SINGLE W US OB CERVICAL LENGTH Estimated Date of Delivery: 11/19/24 Gestational Age as of 06/19/2024: 18w1d C. trachomatis DNA JANESSA+probe Ql (Unsp spec)on 06-19-2024 Chlamydia Dna(Pcr) Negative [facility] Gonorrhoeae Dna(Pcr) Negative [facility] [...] II, MD, PHD at 20-Jun-2024 09:56:32 AM [facility] Normal Not Available Comment on above: Order Comment: US OB PLACENTA W US OB TRANSVAGINAL Estimated Date of Delivery: 11/19/24 Gestational Age as of 06/19/2024: 18w1d Ultrasound - Officeon 2024 [facility] US OB CERVICAL LENGTHon 04-30 [place] [address] Ultrasound Report Signed Patient: EMILEE RIVAS MR#: [id number] : 1995 Acct:[id number] Age/Sex: 29 / F ADM Date: 05/23/24 Loc: US Attending Dr: Saravanan Ahumada D.O. Ordering Physician: Saravanan Ahumada D.O. Date of Service: 05/23/24 Procedure(s): US OB cervical length Accession Number(s): [id number] cc: Saravanan Ahumada D.O.; LITO VELAZQUEZ [place] [id number] Patient Name: EMILEE RIVAS MRN: [facility]:[id number] date: 1995 Sex: F Assigned Patient Location: US Current Patient Location: US Accession/Order Number: [id number] Exam Date: 05/23/2024 23:10 Report Date: 05/23/2024 [...] Harmon Jr., D.O.05/23/2024 11:13 PM Dictation Location: [place] [address] Electronically authenticated by: [id number] Y Date: 05/23/2024 23:13 Dictated By: Navjot Harmon M.D. Signed By: 05/23/242314 DD/ 12 TD/TT: Crime Lab Technician: [facility] Radiology, Radiologist, - 05/24/2024 [facility] [address] [place] [address] Ultrasound Report Signed Patient: EMILEE RIVAS MR#: [id number] : 1995 Acct:[id number] Age/Sex: 29 / F ADM Date: 05/23/24 Loc: US Attending Dr: Saravanan Ahumada D.O. Ordering Physician: Saravanan Ahumada D.O. Date of Service: 05/23/24 Procedure(s): US OB cervical length Accession Number(s): [id number] cc: Saravanan Ahumada D.O.; LITO VELAZQUEZ [place] [address] Patient Name: EMILEE RIVAS MRN: [id number] date: 1995 Sex: F Assigned Patient Location: US Current Patient Location: US Accession/Order Number: [id number] Exam Date: 05/23/2024 23:10 Report Date: 05/23/2024 [...] Harmon Jr., D.O.05/23/2024 11:13 PM Dictation Location: [place] [address] Electronically authenticated by: [id number] Y Date: 05/23/2024 23:13 Dictated By: Navjot Harmon M.D. Signed By: 05/23/242314 DD/ 12 TD/TT: Crime Lab Technician: [facility] Radiology Study observation (narrative) [facility] US OB CERVICAL LENGTHOrdered By: Radiologist Radiology on 05-23-2024 [facility] Work Phone: Unlisted Lab Teston 05-22-19 [facility] Urinalysis macro (dipstick) panel (U)on 05-22-2024 Bilirubin, UA Negative Negative - 4(70) +++ mg/dL [facility] Blood, UA Negative Negative - 50 Jorge Luis/mcL [facility] Clarity, UA Clear [facility] Color, UA Yellow [facility] Glucose, UA Negative Negative - 1999(110) ++++ mg/dL [facility] Interpretation and review of laboratory results Normal [facility] Ketones, UA Negative Negative - 160(16) ++++ mg/dL [facility] Leukocytes, UA Negative Negative - 500+++ Flori/mcL [facility] Nitrite, UA Negative Negative - Positive [facility] pH, UA 7 5 - 9 [facility] Protein, UA Negative Negative - 1999(20) ++++ mg/dL [facility] Spec Grav, UA 1.015 1 - 1.03 [facility] Urobilinogen, UA 0.2 0.2 - 12 mg/dL [facility] Urinalysis macro (dipstick) panel (U)on 05-15-2024 Bilirubin, UA Negative Negative - 4(70) +++ mg/dL [facility] Blood, UA Negative Negative - 50 Jorge Luis/mcL [facility] Clarity, UA Clear [facility] Color, UA Yellow [facility] Glucose, UA Negative Negative - 1999(110) ++++ mg/dL [facility] Interpretation and review of laboratory results Normal [facility] Ketones, UA Negative Negative - 160(16) ++++ mg/dL [facility] Leukocytes, UA Negative Negative - 500+++ Flori/mcL [facility] Nitrite, UA Negative Negative - Positive [facility] pH, UA 6 5 - 9 [facility] Protein, UA Negative Negative - 1999(20) ++++ mg/dL [facility] Spec Grav, UA 1.01 1 - 1.03 [facility] Urobilinogen, UA 0.2 0.2 - 12 mg/dL [facility] AFP Single Marker Scrn, Mate rnal, Serumon 04-21-2024 [facility] BOX TESTon 04-21-2024 BOX TEST SENT OUT 04/21/24 [facility] BOX1 [facility] BOX2 [facility] BOX CLINISYNC [facility] Drug Screen, Urineon Benzodiazepines Negative [facility] Cocaine Metabolite Negative [facility] Opiates Negative [facility] Phencyclidine Negative [facility] Thc Marijuana, Urine Negative [facility] HBV surface Ag IA Qlon 04-21 Hepatitis B Surface Antigen Negative [facility] HCG ( test) Ql (U)o n 04-21-2024 Interpretation and review of laboratory results Abnormal [facility] Preg Test, Ur Positive Negative [facility] HCV Ab IA Qlon 04-21-2024 HCV Ab Ql (S) Non-Reactive [facility] HIV 1+2 Ab+HIV1 p24 Ag IA Ql on 04-21-2024 HIV 1&2 AB/AG Non-Reactive [facility] Hemoglobin A1con 04-21-2024 HbA1c (Bld) [Mass fraction] 5.4 % 4.0 - 6.0 % [facility] No Panel Informationon 04-21 [facility] Rubella IGG immune statuson 04-21-2024 Rubella immune IgG non immune [facility] T. pallidum IgG+IgM IA Ql (S )on 04-21-2024 Syphilis Non-Reactive [facility] Type and screenon 04-21-2024 Abo/Rh(D) Negative [facility] US OB TRANSVAGINALon 025 US OB [...] 9 weeks 0 days. Dictated and transcribed 04/21/24/latasha This report has been electronically signed and approved by the interpreting radiologist. Normal Not Available Comment on above: Order Comment: US OB TRANSVAGINAL Patient's last menstrual period was 02/13/2024 (approximate). Urinalysis macro (dipstick) panel (U)on 04-21-2024 Bilirubin, UA Negative Negative - 4(70) +++ mg/dL [facility] Blood, UA Negative Negative - 50 Jorge Luis/mcL [facility] Clarity, UA Clear [facility] Color, UA Yellow [facility] Glucose, UA Negative Negative - 1999(110) ++++ mg/dL [facility] Interpretation and review of laboratory results Normal [facility] Ketones, UA Negative Negative - 160(16) ++++ mg/dL [facility] Leukocytes, UA Negative Negative - 500+++ Flori/mcL [facility] Nitrite, UA Negative Negative - Positive [facility] pH, UA 7 5 - 9 [facility] Protein, UA Negative Negative - 1999(20) ++++ mg/dL [facility] Spec Grav, UA 1.02 1 - 1.03 [facility] Urobilinogen, UA 0.2 0.2 - 12 mg/dL [facility] CNNURSEon 2024 CNNURSE Nurse Visit (REIAV) LISSA RIVAS ([id number]) 1995 F Date Time Provider Department 04/03/24 11:10 AM US TECH [facility] REJ REIAV During your visit today, we recorded the following information about you: Ortega Morrissey APRN.WHITEWASHER 2024 4:38 PM Signed Lissa Rivas here [...] OB Ortega Morrissey APRN.CNP 2024 4:34 PM Referring Provider: ORTEGA MORRISSEY [[id number]] Allergies As of Date: 2024 (No Known Allergies) Date Reviewed: 02/23/2024 Reviewed by: Paula Hester RN - Fully Assessed Visit Diagnosis:Supervision of with history of infertility, first trimester [O09.01] Order(s):OBSTETRIC ULTRASOUND [facility] [2920480] Order #: [id number]. #:[id number] EWPOINTQty: 1 Prescriptions as of 2024 - [...] JAILENE HOWARD on 04/03/24 Normal [facility] Examination level ultrasound on 2024 Indication Viability Impression - Single, live, intrauterine . - An intrauterine gestational sac with a yolk sac and pole is present. - Stigler rump length measurement is NOT consistent with [...] by U/S 6 w + 3 d KEAR by U/S: 11/24/2024 Assigned: based on ultrasound [...] Read By: Jailene Howard M.D. MATERNAL MEDICINE [facility] Radiology Study observation (narrative) [facility], Urineon 024 Amphetamine/Methamphetam ine Negative [facility] Barbiturates Negative [facility] Methadone Negative [facility] Oxycodone Negative [facility] CONSULT PROGon 03-20-2024 CONSULT PROG HNO ID: [id number] Author: FEDE HAIRSTON MD Service: ? Author [...] appointment with cancer genetic team soon. 5. [employer] - test neg for all mutations. Initial [...] Laparoscopy OPK (Ovulation Predictor Kit) [facility] [place] [facility] 10.91 High 01/04/2023 [facility] Semen [...] visit. Either the patient or their legal sales representative girls' apparel has been informed of the risks and benefits of -- and alternatives to -- treatment through a remote evaluation and consents to proceed with the evaluation remotely. I spent a total of 30 minutes on the date of the service which included preparing to see the patient, [id number] patient care, counseling and educating the patient/family/caregiv er, ordering medications, tests, or procedures, communicating results to the patient/family/caregiv er, and care coordination (not separately reported). MD Kim Branch MD Normal [facility] B-HCG SerPl-aCncon 4 HCG.beta subunit Qn 190.7 m[IU]/mL High <5.0 [facility] Comment on above: Order Comment: Speci men Type: BLOOD SPECIMENOrdering Facility: [facility] Address: [address] [place] [address] Result Comment: LUCA TITATIVE HCG NORMAL RANGES Weeks of Gestation (Weeks Since LMP) 3 Weeks (5.8-71.2 mIU/mL) 4 Weeks (9.5-750 mIU/mL) 5 Weeks (217-7138 mIU/mL) 6 Weeks (158-27734 mIU/mL) 7 Weeks (3697-612683 mIU/mL) 8 Weeks (25744-111820 mIU/mL) 9 Weeks (58076-175244 mIU/mL) 10 Weeks (53634-165613 mIU/mL) 12 Weeks (37097-588138 mIU/mL) Referenced to 4th IS of [employer]BS Performed By: #### 2 1198-7 ####[facility] LABIA [id number] [place] [address] [place] B-HCG SerPl-aCncon 4 HCG.beta subunit Qn 87.6 m[IU]/mL High <5.0 [facility] Comment on above: Order Comment: Speci men Type: BLOOD SPECIMENOrdering Facility: [facility] Address: [address] [place] [address] Result Comment: LUCA TITATIVE HCG NORMAL RANGES Weeks of Gestation (Weeks Since LMP) 3 Weeks (5.8-71.2 mIU/mL) 4 Weeks (9.5-750 mIU/mL) 5 Weeks (217-7138 mIU/mL) 6 Weeks (158-02849 mIU/mL) 7 Weeks (3697-379238 mIU/mL) 8 Weeks (34865-379191 mIU/mL) 9 Weeks (37127-380005 mIU/mL) 10 Weeks (36121-631390 mIU/mL) 12 Weeks (35733-304149 mIU/mL) Referenced to 4th IS of [facility] Performed By: #### 2 1198-7 ####[facility] LABIA [id number] [place] [address] [place] B-HCG SerPl-aCncon 4 HCG.beta subunit Qn 21.9 m[IU]/mL High <5.0 [facility] Comment on above: Order Comment: Speci men Type: BLOOD SPECIMENOrdering Facility: [facility] Address: [address] [place] [address] Result Comment: LUCA TITATIVE HCG NORMAL RANGES Weeks of Gestation (Weeks Since LMP) 3 Weeks (5.8-71.2 mIU/mL) 4 Weeks (9.5-750 mIU/mL) 5 Weeks (217-7138 mIU/mL) 6 Weeks (158-75467 mIU/mL) 7 Weeks (3697-392429 mIU/mL) 8 Weeks (53683-866039 mIU/mL) 9 Weeks (10943-753736 mIU/mL) 10 Weeks (62731-386298 mIU/mL) 12 Weeks (73824-113588 mIU/mL) Referenced to 4th IS of [facility] Performed By: #### 2 1198-7 ####[facility] LABCLIA [id number] [place] [id number] [facility] Alexandra 03-13-2024 JORDANN Telephone (REIBD) LISSA RIVAS ([id number]) 1995 F Date Time Provider Department 03/13/24 [...] ordered: HCG x2 FYI Dr. Bill Morrissey, CYCLE LIAISON.WHITEWASHER March 13, 2024 1:37 PM Allergies As of Date: 03/13/2024 (No Known Allergies) Date Reviewed: 02/23/2024 Reviewed by: Paula Hester, ARIC - Fully Assessed Reason for Visit: +hpt today/lmp 02/12 skipped treatment this month [Other] Primary Visit Diagnosis:Supervision of with history of infertility, first trimester [O09.01] Other Visit Diagnosis: examination or test, unconfirmed [Z32.00] Order(s):HCG QUANTITATIVE [SQHCGQT] Order #: [id number] STANDING Prescriptions as of 03/13/2024 - metFORMIN [...] ORTEGA MORRISSEY on 03/13/24 Normal [facility] Progest Tucker 024 Progesterone [Mass/Vol] 17.8 ng/mL Normal See comment [facility] Comment on above: Order Comment: Speci men Type: BLOOD SPECIMENOrdering Facility: [facility] Address: [address] [place] [address] Result Comment: Mens trual Cycle Progesterone Reference Ranges: Follicular: <1.0 ng/mL Ovulation: <12.1 ng/mL Luteal: 1.8 to 23.9 ng/mL. Progesterone Reference Ranges vary by gestational period: First Trimester: 11.0 to 44.3 ng/mL Second Trimester: 25.4 to 83.3 ng/mL Third Trimester: 58.7 to 214 ng/mL Post menopausal Progesterone: <0.5 ng/mL Reference: 1. Progesterone (Progesterone III) [package insert V 1.0 B[place]ian]. [facility], [place], [place]. December 2014. Performed By: #### 2 839-9 ####[facility] LABCLIA [id number] [address] 02-28-2024 LAURA Telephone (REIBD) LISSA RIVAS ([id number]) 1995 F Date Time Provider Department 02/28/24 FEDE HAIRSTON During your visit today, we recorded the following information about you: Joanna Garces 02/28/2024 8:23 AM Signed Pt is not financially clear yet should she still schedule it after she pays Ortega Morrissey APRN.WHITEWASHER 02/28/2024 11:54 AM Signed Spoke with Thao, [...] cycle day 3-7 Authorizing Provider: ORTEGA MORRISSEY APRN.WHITEWASHER February 28, 2024 11:54 AM Allergies As of Date: 02/28/2024 (No Known Allergies) Date Reviewed: 02/23/2024 Reviewed by: Paula Hester RN - Fully Assessed Reason for Visit: ortega cueva is not cleared for us should she still have it do [Other] Primary Visit Diagnosis:Female infertility [N97.9] Order(s):PROGESTERONE [SQPROG] Order #: [id number] FUTURE letrozole (FEMARA) 2.5 mg tabletTake 3 [...] ORTEGA MORRISSEY on 02/28/24 Normal [facility] 25(OH)D3 [facility] 25-hydroxyvitamin D3 [Mass/Vol] 49.3 ng/mL Normal 31.0-80.0 [facility] Comment on above: Order Comment: Speci men Type: BLOOD SPECIMEN Ordering Facility: [facility] Address: [address] [place] [address] Result Comment: Clas sification of 25 [place] Vitamin D status: Deficiency/Insufficiency: < or = 30 ng/ml. Sufficiency/Optimal Levels: 31-80 ng/mL Toxicity: > 100 ng/mL. Test performed by chemiluminescent immunoassay. Performed By: #### 1 989-3 #### [facility] CLIA [id number] [address] [place] [address] [place] [address] [place] 25-hydroxyvitamin D3 [Mass/V ol]on 02-23-2024 Interpretation and review of laboratory results Normal [facility] The reference range interval was based on an analysis of samples from healthy adults and may not pertain to children from 0-18 years old. [facility] CBC panel Auto (Bld)on 02-22 Erythrocyte distribution width (RBC) [Ratio] 12.4 % 11.5 - 15.0 % [facility] Hematocrit (Bld) [Volume fraction] 40.6 % 36.0 - 46.0 % [facility] Hemoglobin (Bld) [Mass/Vol] 13.5 g/dL 11.5 - 15.5 g/dL [facility] Interpretation and review of laboratory results Normal [facility] MCH (RBC) [Entitic mass] 31.1 pg 26. 0 - 34.0 pg [facility] MCHC (RBC) [Mass/Vol] 33.3 g/dL 30.5 - 36.0 g/dL [facility] MCV (RBC) [Entitic vol] 93.5 fL 80.0 - 100.0 fL [facility] Nucleated RBC (Bld) [#/Vol] NINF [facility] Platelet mean volume (Bld) [Entitic vol] 10.6 fL 9.0 - 12.7 fL [facility] Platelets (Bld) [#/Vol] 261 10*3/uL [facility] RBC (Bld) [#/Vol] 4.34 10*6/uL 3.90 - 5.2 0 m/uL [facility] WBC (Bld) [#/Vol] 8.81 10*3/uL [facility] Erythrocyte distribution width (RBC) [Ratio] 12.4 % Normal 11.5-15.0 [facility] Comment on above: Order Comment: Speci men Type: BLOOD SPECIMEN Ordering Facility: [facility] Address: [address] [place] [address] Performed By: #### 5 8410-2 #### [facility] CLIA [id number] [address] [place] [address] [place] Hematocrit (Bld) [Volume fraction] 40.6 % Normal 36.0-46.0 [facility] Comment on above: Order Comment: Speci men Type: BLOOD SPECIMEN Ordering Facility: [facility] Address: [address] [place] [address] Performed By: #### 5 8410-2 #### [facility] CLIA [id number] [address] [place] [address] [place] Hemoglobin (Bld) [Mass/Vol] 13.5 g/dL Normal 11.5-15.5 [facility] Comment on above: Order Comment: Speci men Type: BLOOD SPECIMEN Ordering Facility: [facility] Address: [address] [place] [address] Performed By: #### 5 8410-2 #### [facility] CLIA [id number] [address] [place], [place] [id number] [place] [address] STATES [place] [facility] MCH (RBC) [Entitic mass] 31.1 pg Normal 26.0-34.0 [facility] Comment on above: Order Comment: Speci men Type: BLOOD SPECIMEN Ordering Facility: [facility] Address: [address] [place] [address] Performed By: #### 5 8410-2 #### [facility] [place] [id number] [place] [address] [place] MCHC (RBC) [Mass/Vol] 33.3 g/dL Normal 30.5-36.0 [facility] Comment on above: Order Comment: Speci men Type: BLOOD SPECIMEN Ordering Facility: [facility] Address: [address] [place] [address] Performed By: #### 5 8410-2 #### [facility] [place] [id number] [address] [place] [address] [place] MCV (RBC) [Entitic vol] 93.5 fL Normal 80.0-100.0 [facility] Comment on above: Order Comment: Speci men Type: BLOOD SPECIMEN Ordering Facility: [facility] Address: [address] [place] [address] Performed By: #### 5 8410-2 #### [facility] CLIA [id number] [place] Nucleated RBC (Bld) [#/Vol] 10*3/uL Normal <0.01 [facility] Comment on above: Order Comment: Speci men Type: BLOOD SPECIMEN Ordering Facility: [facility] Address: [address] [place] [address] Performed By: #### 5 8410-2 #### [facility] CLIA [id number] [address] [place] [address] [place] Platelet mean volume (Bld) [Entitic vol] 10.6 fL Normal 9.0-12.7 [facility] Comment on above: Order Comment: Speci men Type: BLOOD SPECIMEN Ordering Facility: [facility] Address: [address] [place] [address] Performed By: #### 5 8410-2 #### [facility] CLIA [id number] [address] [place] [address] [place] Platelets (Bld) [#/Vol] 261 10*3/uL Normal 150-400 [facility] Comment on above: Order Comment: Speci men Type: BLOOD SPECIMEN Ordering Facility: [facility] Address: [address] [place] [address] Performed By: #### 5 8410-2 #### [facility] [place] [id number] [address] [place] [address] [place] RBC (Bld) [#/Vol] 4.34 10*6/uL Normal 3.90-5.20 [facility] Comment on above: Order Comment: Speci men Type: BLOOD SPECIMEN Ordering Facility: [facility] Address: [address] [place] [address] Performed By: #### 5 8410-2 #### [facility] CLIA [id number] [address] [place] [address] [place] WBC (Bld) [#/Vol] 8.81 10*3/uL Normal 3.70-11.00 [facility] Comment on above: Order Comment: Speci men Type: BLOOD SPECIMEN Ordering Facility: [facility] Address: [address] [place] [address] Performed By: #### 5 8410-2 #### [facility] IA [id number] [address] [place] [id number] [place] [facility] (REIAV) LISSA RIVAS ([id number]) 1995 F Date Time Provider Department 02/23/24 [...] schedule the patient for the following- Location: [facility] Provider: Nurse Visit type: midcycle Reason for visit/appointment notes: midcycle Date: 02/24 Time (requested): 07 If slot is full, please schedule the closest open slot. Call to patient needed: no Ortega Morrissey APRN.CNP 02/23/2024 4:03 PM Signed Addended by: ORTEGA MORRISSEY on: 02/23/2024 04:03 PM Modules accepted: Orders Referring Provider: ORTEGA MORRISSEY [[id number]] Allergies As of Date: 02/23/2024 (No Known Allergies) Date Reviewed: 02/23/2024 Reviewed by: Paula Hester RN - Fully Assessed Reason for Visit: Infertility [285] Visit Diagnosis:Female infertility [N97.9] Order(s):FOLLICULAR US WHI [[id number]] Order #: [id number]. #:[id number] EWPOINTQty: 1 FOLLICULAR US WHI [[id number]] Order #: [id number]: 1 FUTURE Prescriptions as of 02/23/2024 - [...] Encounter Status:Closed by VANESSA VO [facility]23/24 [facility]Mas s/Vol]on 02-23-2024 Interpretation and review of laboratory results Normal [facility] Comprehensive metabolic 2000 panelon 02-23-2024 Albumin [Mass/Vol] 4.5 g/dL 3.9 - 4.9 g/dL [facility] ALP [Catalytic activity/Vol] 65 U/L 34 - 123 U/L [facility] ALT [Catalytic activity/Vol] 41 U/L High 7 - 38 U/L [facility] Anion gap [Moles/Vol] 12 mmol/L 8 - 15 mmol/L [facility] AST [Catalytic activity/Vol] 21 U/L 13 - 35 U/L [facility] Bilirubin [Mass/Vol] 0.2 mg/dL 0.2 - 1 .3 mg/dL [facility] Calcium [Mass/Vol] 9.3 mg/dL 8.5 - 10. 2 mg/dL [facility] Chloride [Moles/Vol] 105 mmol/L 98 - 10 7 mmol/L [facility] CO2 [Moles/Vol] 24 mmol/L 22 - 30 mmol/L [facility] Creatinine [Mass/Vol] 0.78 mg/dL 0.58 - 0.96 mg/dL [facility] GFR/1.73 sq M.predicted among non-blacks MDRD (S/P/Bld) [Vol rate/Area] 106 mL/min/{1.73_m2} - PINF [facility] Comment on above: Estimated Glomerular Filtration Rate [...] [Mass/Vol] 98 mg/dL 74 - 99 mg/dL [facility] Comment on above: The Japanese Diabete s Association (ADA) provides guidance for [...] Standards of Medical Care in Diabetes 2016, Japanese Diabetes Association. Diabetes Care. 2016.39(Suppl 1). Interpretation and review of laboratory results Abnormal [facility] Potassium [Moles/Vol] 4.3 mmol/L 3.7 - 5.1 mmol/L [facility] Protein [Mass/Vol] 7.3 g/dL 6.3 - 8.0 g/dL [facility] Sodium [Moles/Vol] 141 mmol/L 136 - 144 mmol/L [facility] Urea nitrogen [Mass/Vol] 11 mg/dL 7 - 21 mg/d L [facility] Albumin [Mass/Vol] 4.5 g/dL Normal 3.9-4.9 [facility] Comment on above: Order Comment: Jarek leger Type: BLOOD SPECIMEN Ordering Facility: [facility] Address: [address] [place] [address] Performed By: #### 2 4323-8 #### [facility] CLIA [id number] [address] [place] [address] [place] ALP [Catalytic activity/Vol] 65 U/L Normal 34-123 [facility] Comment on above: Order Comment: Jarek leger Type: BLOOD SPECIMEN Ordering Facility: [facility] Address: [address] [place] [address] Performed By: #### 2 4323-8 #### [facility] CLIA [id number] [address] [place] [address] [place] ALT [Catalytic activity/Vol] 41 U/L High 7-38 [facility] Comment on above: Order Comment: Jarek leger Type: BLOOD SPECIMEN Ordering Facility: [facility] Address: [address] [place] [address] Performed By: #### 2 4323-8 #### [facility] CLIA [id number] [address] [place] [address] [place] Anion gap [Moles/Vol] 12 mmol/L Normal 8-15 [facility] Comment on above: Order Comment: Speci men Type: BLOOD SPECIMEN Ordering Facility: [facility] Address: [address] [place] [address] Performed By: #### 2 4323-8 #### [facility] CLIA [id number] [address] [place] [address] [place] AST [Catalytic activity/Vol] 21 U/L Normal 13-35 [facility] Comment on above: Order Comment: Speci men Type: BLOOD SPECIMEN Ordering Facility: [facility] Address: [address] [place] [address] Performed By: #### 2 4323-8 #### [facility] IA [id number] [address] [place] [address] [place] Bilirubin [Mass/Vol] 0.2 mg/dL Normal 0.2-1.3 [facility] Comment on above: Order Comment: Speci men Type: BLOOD SPECIMEN Ordering Facility: [facility] Address: [address] [place] [address] Performed By: #### 2 4323-8 #### [facility] IA [id number] [address] [place] [address] [place] Calcium [Mass/Vol] 9.3 mg/dL Normal 8.5-10.2 [facility] Comment on above: Order Comment: Speci men Type: BLOOD SPECIMEN Ordering Facility: [facility] Address: [address] [place] [address] Performed By: #### 2 4323-8 #### [facility] CLIA [id number] [address] [place] [address] [place] Chloride [Moles/Vol] 105 mmol/L Normal 98-107 [facility] Comment on above: Order Comment: Speci men Type: BLOOD SPECIMEN Ordering Facility: [facility] Address: [address] [place] [address] Performed By: #### 2 4323-8 #### [facility] CLIA [id number] [address] [place] [address] [place] CO2 [Moles/Vol] 24 mmol/L Normal 22-30 [facility] Comment on above: Order Comment: Speci men Type: BLOOD SPECIMEN Ordering Facility: [facility] Address: [address] [place] [address] Performed By: #### 2 4323-8 #### [facility] CLIA [id number] [address] [facility] [place] [address] [place] Creatinine [Mass/Vol] 0.78 mg/dL Normal 0.58-0.96 [facility] Comment on above: Order Comment: Speci men Type: BLOOD SPECIMEN Ordering Facility: [facility] Address: [address] [place] [address] Performed By: #### 2 4323-8 #### [facility] CLIA [id number] [facility] [place] [address] [place] [facility] Creatinine and Glomerular filtration rate.predicted panel (S/P/Bld) 106 mL/min/1.73m??? Normal >=60 [facility] Comment on above: Order Comment: Speci men Type: BLOOD SPECIMEN Ordering Facility: [facility] Address: [address] [place] [address] Result Comment: Estefanía mated Glomerular Filtration Rate [...] GFR. Performed By: #### 2 4323-8 #### [facility] CLIA [id number] [address] [facility] [place] [address] [place] Glucose [Mass/Vol] 98 mg/dL Normal 74-99 [facility] Comment on above: Order Comment: Harmonyi men Type: BLOOD SPECIMEN Ordering Facility: [facility] Address: [address] [place] [address] Result Comment: The Japanese Diabetes Association (ADA) provides guidance for cutoff [...] Standards of Medical Care in Diabetes 2016, Japanese Diabetes Association. Diabetes Care. 2016.39(Suppl 1). Performed By: #### 2 4323-8 #### [facility] CLIA [id number] [address] [place] [address] [place] Potassium [Moles/Vol] 4.3 mmol/L Normal 3.7-5.1 [facility] Comment on above: Order Comment: Speci men Type: BLOOD SPECIMEN Ordering Facility: [facility] Address: [address] [place] [address] Performed By: #### 2 4323-8 #### [facility] IA [id number] [address] [place] [address] [place] Protein [Mass/Vol] 7.3 g/dL Normal 6.3-8.0 [facility] Comment on above: Order Comment: Speci men Type: BLOOD SPECIMEN Ordering Facility: [facility] Address: [address] [place] [address] Performed By: #### 2 4323-8 #### [facility] CLIA [id number] [address] [place] [address] [place] Sodium [Moles/Vol] 141 mmol/L Normal 136-144 [facility] Comment on above: Order Comment: Speci men Type: BLOOD SPECIMEN Ordering Facility: [facility] Address: [address] [place] [address] Performed By: #### 2 4323-8 #### [facility] CLIA [id number] [place] [address] [place] Urea nitrogen [Mass/Vol] 11 mg/dL Normal 7-21 [facility] Comment on above: Order Comment: Speci men Type: BLOOD SPECIMEN Ordering Facility: [facility] Address: [address], [place] [address] Performed By: #### 2 4323-8 #### [facility] CLIA [id number] [facility] [place] [address] [place] Follicle Diameter USon [...] Read By: Vanessa Vo M.D. MATERNAL MEDICINE [facility] Radiology Study observation (narrative) [facility] HbA1c (Bld)on 02-23-2024 Average glucose Estimated from glycated hemoglobin (Bld) [Mass/Vol] 111 mg/dL [facility] Comment on above: eAG: (Estimated aver age glucose) is a calculated value from HgbA1c and is sales representative girls' apparel of the average blood glucose level in the last 2-3 month period. HbA1c (Bld) [Mass fraction] 5.5 % 4.3 - 5.6 % [facility] Comment on above: Japanese Diabetes As sociation guidelines indicate that patients with HgbA1c in the range 5.7-6.4% are at increased risk for development of diabetes, and intervention by lifestyle modification may be beneficial. HgbA1c greater or equal to 6.5% is considered diagnostic of diabetes. [facility] Average glucose Estimated from glycated hemoglobin (Bld) [Mass/Vol] 111 mg/dL Normal [facility] Comment on above: Order Comment: Speci Surveypal Type: BLOOD SPECIMEN Ordering Facility: [facility] Address: [address] [place] [address] Result Comment: eAG: (Estimated average glucose) is a calculated value from HgbA1c and is sales representative girls' apparel of the average blood glucose level in the last 2-3 month period. Performed By: #### 5 5454-3 #### [facility] CLIA [id number] [address] [place], [place] [address] [place] [address] [place] HbA1c (Bld) [Mass fraction] 5.5 % Normal 4.3-5.6 [facility] Comment on above: Order Comment: Jarek Surveypal Type: BLOOD SPECIMEN Ordering Facility: [facility] Address: [address] [place] [address] Result Comment: Amer ican Diabetes Association guidelines indicate that patients with HgbA1c in the range 5.7-6.4% are at increased risk for development of diabetes, and intervention by lifestyle modification may be beneficial. HgbA1c greater or equal to 6.5% is considered diagnostic of diabetes. Performed By: #### 5 5454-3 #### [facility] CLIA [id number] [address] [facility] [place] [address] [place] VITAMIN B12on 02-23-2024 Cobalamin (Vitamin B12) [Mass/Vol] 567 pg/mL 232 - 1245 pg/mL [facility] VITAMIN D 25 HYDROXYon 02-22 25-hydroxyvitamin D3 [Mass/Vol] 49.3 ng/mL 31.0 - 80.0 ng/mL [facility] Comment on above: Classification of 25 [place] Vitamin D status: Deficiency/Insufficiency: < or = 30 ng/ml. Sufficiency/Optimal Levels: 31-80 ng/mL Toxicity: > 100 ng/mL. Test performed by chemiluminescent immunoassay. Vit B12 SerPl-mCncon 024 Cobalamin (Vitamin B12) [Mass/Vol] 567 pg/mL Normal 232-1245 [facility] Comment on above: Order Comment: Speci men Type: BLOOD SPECIMEN Ordering Facility: [facility] Address: [address] [place] [address] Performed By: #### 2 132-9 #### [facility] CLIA [id number] [address] [place] [address] [place] Alexandra 02-21-2024 JORDANN Telephone (REIBD) LISSA RIVAS ([id number]) 1995 F Date Time Provider Department 02/21/24 FEDE HAIRSTON During your visit today, we recorded the following information about you: Joanna Garces 02/21/2024 10:32 AM Signed Needs [facility] Ortega Mckeon APRN.CNP 02/21/2024 10:40 AM Signed Medication send the [facility] specialty on 02/17. Ortega Morrissey APRN.WHITEWASHER February 21, 2024 10:39 AM Allergies As [...] Encounter Status:Closed by ORTEGA MORRISSEY on 02/21/24 [facility] [id number] 02-17-2024 HNO ID: [id number] Author: FEDE HAIRSTON MD Service: ? Author [...] visit. Either the patient or their legal sales representative girls' apparel has been informed of the risks and benefits of -- and alternatives to -- treatment through a remote evaluation and consents to proceed with the evaluation remotely. I spent a total of 30 minutes on the date of the service which included preparing to see the patient, [id number] patient care, counseling and educating the patient/family/caregiv er, ordering medications, tests, or procedures, communicating results to the patient/family/caregiv er, and care coordination (not separately reported). Kim Khan MD [facility] APTIMA MULTITEST VAGINALon 1 04-17-2023 [facility] No Panel Informationon 02-15 APTIMA BACTERIAL VAGINOSIS Not detected [facility] APTIMA SHANTA GLABRATA Not detected [facility] APTIMA CHLAMYDIA TRACHOMATIS 5 ppm [facility] APTIMA CHLAMYDIA TRACHOMATIS Not detected ppm [facility] Healthcare CNPNon 02-15-2024 CNPN Telephone (REIBD) CRYSTALLISSA ([id number]) 1995 F Date Time Provider Department 02/15/24 [...] schedule the patient for the following- Location: [facility] Provider: nurse Visit type: midcycle Reason [...] day 3-7Disp: 10 tabletRfl: 2 FOLLICULAR US WHI [[id number]] Order #: [id number]: 1 FUTURE Prescriptions as of 02/15/2024 - [...] ORTEGA MORRISSEY on 02/15/24 Normal [facility] POCT trichomonas alexis david 02-15-2024 Bacterial vaginosis [...] Available Comment on above: Order Comment: Haileypia nt is working with reproductive specialist at [facility] and needs MRI done within the next 13 days. If [facility] not able to accommodate her, anywhere that is able to schedule within that timeframe would be fine. Alexandra 01-14-2024 LAURA Telephone (REIBD) LISSA RIVAS ([id number]) 1995 F Date Time Provider Department 01/14/24 ORTEGA MORRISSEY During your visit today, we recorded the following information about you: Keren Carcamo 01/14/2024 9:04 AM Signed Pt started cycle 01/12 and would like to discuss plan for scheduling iui Ortega Morrissey APRN.WHITEWASHER 01/14/2024 4:18 PM Signed Spoke with Lissa, She is planning to use OPK only this cycle. Jeferson call with LH surge. Ortega Morrissey APRN.JORDAN January 14, 2024 4:17 PM Allergies As of Date: 01/14/2024 (No Known Allergies) Date Reviewed: 11/22/2023 Reviewed by: Ortega Morrissey APRN.WHITEWASHER - Fully Assessed Reason for Visit: iui [...] Encounter Status:Closed by ORTEGA MORRISSEY on 01/14/24 [facility] CNOVon 12-31-2023 CNOV Office Visit (REIAV) LISSA RIVAS ([id number]) 1995 F Date Time Provider Department 12/31/23 10:00 AM ORTEGA MORRISSEY During your visit today, we recorded the following information about you: Last Period 12/12/23 Domenica Coon MA 12/31/2023 10:07 AM Signed Religious Ritual Slaughterer offered: Patient declines. Ortega Morrissey APRN.CNP 12/31/2023 [...] Cycle Day: 20 Last menstrual period: 12/12/2023 Pride Protocol: UNIVERSAL PROTOCOL / SAFETY CHECKLIST Procedure [...] Plan of Care Visit completed when applicable. Otrega Morrissey APRN.CNP IUI IUI Date: 12/31/23 Partner's [...] 08/17/2023 Visit Notes: >> Domenica Coon MA [facility] Dec 31, 2023 10:07 AM Status: Signed Religious Ritual Slaughterer offered: Patient declines. Encounter Status:Closed by ORTEGA MORRISSEY on 12/31[facility] Nurse Visit (DAVI) LISSA RIVAS ([id number]) 1995 F Date Time Provider Department 12/21/23 [...] plan provided to patient via a Fertility council member. MD Darrell Branch Laura, RN 12/21/2023 2:32 PM Signed pt using LH surge strips and will call to irvin IUI Robin Grewal RN December 21, 2023 2:32 PM Referring Provider: ORTEGA MORRISSEY [[id number]] Allergies As of Date: 12/21/2023 (No Known Allergies) Date Reviewed: 11/22/2023 Reviewed by: Ortega Morrissey APRN.WHITEWASHER - Fully Assessed Visit Diagnosis:Female infertility [N97.9] Order(s):FOLLICULAR [facility] [[id number]] Order #: [id number]. #:[id number] EWPOINTQty: 1 Prescriptions as of 12/21/2023 - [...] ROBIN GREWAL on 12/21/23 Normal [facility] Follicle Diameter USon 12-20 Indication MIdcycle, [...] Read By: Fede Hairston M.D. MATERNAL MEDICINE [facility] Radiology Study observation (narrative) [facility] Alexandra 12-13-2023 CNPN Telephone (REIBD) BOONESTEFANILISSA ([id number]) 1995 F Date Time Provider Department 12/13/23 FEDE HAIRSTON During your visit today, we recorded the following information about you: Ortega Morrissey APRN.CNP 12/13/2023 4:49 PM Signed LMP 12/11 Plan: Let 5mg, trigger, IUI#2 Flowsheet/episode created Ortega Morrissey APRN.CNP December 13, 2023 4:42 PM Please schedule the patient for the following- Location: [place] Provider: Nurse Visit type: Midcycle Reason for visit/appointment notes: Midcycle Date: 12/20 Time (requested): 730 If slot is full, please schedule the closest open slot. Call to patient needed: no Allergies As of Date: 12/13/2023 (No Known Allergies) Date Reviewed: 11/22/2023 Reviewed by: Otrega Morrissey APRN.CNP - Fully Assessed Reason for Visit: LMP 12/12/23/ set up monitored cycle [Other] Patient Update [1234] Primary Visit Diagnosis:Female infertility [N97.9] Order(s):FOLLICULAR [facility] [[id number]] Order #: [id number]: 1 FUTURE Choriogonadotropin Pam,HumRec (OVIDREL) 250 mcg/0.5 [...] Encounter Status:Closed by ORTEGA MORRISSEY on 12/13/23 [facility] CNOVon 11-28-2023 CNOV Office Visit (REIBD) LISSA RIVAS ([id number]) 1995 F Date Time Provider Department 11/28/23 [...] Cycle Day: 13 Last menstrual period: 11/12/2023 Pride Protocol: UNIVERSAL PROTOCOL / SAFETY CHECKLIST Procedure [...] # 44.8 million Referring Provider: DESHAWN RIOJAS [[id number]] Allergies As of Date: 11/28/2023 (No Known Allergies) Date Reviewed: 11/22/2023 Reviewed by: Ortega Morrissey APRN.WHITEWASHER - Fully Assessed Primary Visit Diagnosis:Female infertility [...] Encounter Status:Closed by DESHAWN RIOJAS on 11/28/23 [facility] CNNURSEon 11-22-2023 [facility] Nurse Visit (REIAV) LISSA RIVAS ([id number]) 1995 F Date Time Provider Department 11/22/23 7:15 AM NURSE GAYATHRI [facility] REJ REIAV During your visit today, we [...] called patient. She will drive back to [place] now to get done. Erma Donis RN November 22, 2023 8:45 AM 11/22/2023 11 trigger 25+<10mm 21.2, 25+<10mm 5.6mm tri p4=0.3 lh=5.1 JR 11/23/2023 12 11/24/2023 13 IUI RN called patient, name and verified. Plan given for midcycle per physician, see flowsheet for details. Mems-IDt message sent. Medications reviewed and verified, instructions given. Patient denies any questions or concerns. Erma Donis RN November 22, 2023 12:53 PM Referring Provider: ORTEGA MORRISSEY [[id number]] Allergies As of Date: 11/22/2023 (No Known Allergies) Date Reviewed: 11/22/2023 Reviewed by: Ortega Morrissey APRN.WHITEWASHER - Fully Assessed Visit Diagnosis:Female infertility [N97.9] Order(s):FOLLICULAR US I [[id number]] Order #: [id number]. #:[id number] EWPOINTQty: 1 PROGESTERONE [SQPROG] Order #: [id number] FUTURE LUTEINIZING HORMONE [SQLH] Order #: [id number] FUTURE Prescriptions as of 11/22/2023 - progesterone [...] JAILENE HOWARD on 11/22/23 Normal [facility] Follicle Diameter USon 11-21 Indication Follicle [...] Read By: Jailene Howard M.D. MATERNAL MEDICINE [facility] Radiology Study observation (narrative) [facility] LH SerPl-aCncon 11-22-2023 Lutropin Qn 5.1 m[IU]/mL Normal See comment [facility] Comment on above: Order Comment: Speci men Type: BLOOD SPECIMEN Ordering Facility: [facility] Address: [address] [place] [address] Result Comment: Refe rence range: Follicular: 2.4-12.6 mIU/mL Midcycle: 14.0-95.6 mIU/mL Luteal: 1.0-11.4 mIU/mL Post Mobile: 7.7-58.5 mIU/mL Performed By: #### 2 839-9, 41143-7 #### [facility] CLIA [id number] [address] [facility] [place], [place] [id number] [place] [address] OF [place] LUTEINIZING HORMONEon 2023 Lutropin Qn 5.1 m[IU]/mL See comment mIU/mL [facility] Comment on above: Reference range: Follicular: 2.4-12.6 mIU/mL Midcycle: 14.0-95.6 mIU/mL Luteal: 1.0-11.4 mIU/mL Post Mobile: 7.7-58.5 mIU/mL No Panel Informationon 11-21 [facility] PROGESTERONEon 11-22-2023 Progesterone [Mass/Vol] 0.3 ng/mL See comment [facility] Comment on above: Menstrual Cycle Prog esterone Reference Ranges: Follicular: <1.0 ng/mL Ovulation: <12.1 ng/mL Luteal: 1.8 to 23.9 ng/mL. Progesterone Reference Ranges vary by gestational period: First Trimester: 11.0 to 44.3 ng/mL Second Trimester: 25.4 to 83.3 ng/mL Third Trimester: 58.7 to 214 ng/mL Post menopausal Progesterone: <0.5 ng/mL Reference: 1. Progesterone (Progesterone III) [package insert V 1.0 Bermudian]. [employer], [place], [place]. December 2014. Progest SerPl-mCncon 024 Progesterone [Mass/Vol] 0.3 ng/mL Normal See comment [facility] Comment on above: Order Comment: Speci men Type: BLOOD SPECIMEN Ordering Facility: [facility] Address: [address] [place] [address] Result Comment: Mens trual Cycle Progesterone Reference Ranges: Follicular: <1.0 ng/mL Ovulation: <12.1 ng/mL Luteal: 1.8 to 23.9 ng/mL. Progesterone Reference Ranges vary by gestational period: First Trimester: 11.0 to 44.3 ng/mL Second Trimester: 25.4 to 83.3 ng/mL Third Trimester: 58.7 to 214 ng/mL Post menopausal Progesterone: <0.5 ng/mL Reference: 1. Progesterone (Progesterone III) [package insert V 1.0 Berm[place]ian]. [employer], [place], [place]. December 2014. Performed By: #### 2 839-9, 88433-4 #### [facility] CLIA [id number] [facility] [place] [address] [facility] Alexandra 11-12-2023 LAURA Telephone (REIBD) LISSA RIVAS ([id number]) 1995 F Date Time Provider Department 11/12/23 SELF REIBD During your visit today, we recorded the following information about you: Valeria Carcamora 11/12/2023 1:56 PM Signed Pt had iui 10/25 , pt had negative preg 11/08 or 11/09 , pt started cycle 11/11 Madeleine Orta PA-C 11/12/2023 6:08 PM Signed Patient is planning IUI. FYI: DEXTER Mg. Please see the checklist Madeleine Orta PA-C November 12, 2023 6:07 PM Ortega Morrissey APRN.JORDAN 11/15/2023 9:46 AM Signed Plan: Let 5mg/trigger/IUI #2 Ortega Morrissey APRN.[facility] November 15, 2023 9:39 AM Please schedule the patient for the following- Location: [place] Provider: Nurse Visit type: Follicular scan Reason [...] Visit Diagnosis:Female infertility [N97.9] Order(s):FOLLICULAR US WHI [[id number]] Order #: [id number]: 1 FUTURE Prescriptions as of 11/15/2023 - [...] Encounter Status:Closed by ORTEGA MORRISSEY on 11/15/23 [facility] CNOVon 10-26-2023 CNOV Office Visit (ASHLYNV) LISSA RIVAS ([id number]) 1995 F Date Time Provider Department 10/26/23 [...] Cycle Day: 15 Last menstrual period: 10/12/2023 Pride Protocol: UNIVERSAL PROTOCOL / SAFETY CHECKLIST Procedure [...] TIME: 11:36 AM Referring Provider: ORTEGA MORRISSEY [[id number]] Allergies As of Date: 10/26/2023 (No Known [...] Encounter Status:Closed by OR[facility]SE[facility] ([facility] LISSA RIVAS ([id number]) 1995 F Date Time Provider Department 10/22/23 7:00 AM NURSE GAYATHRI [facility] During your visit today, we recorded the following information about you: Erma Donis RN 10/22/2023 1:41 PM Signed Lissa Rivas is here today for a midcycle scan. Lead follicle: 14 Erma Donis RN October 22, 2023 7:25 AM RN called patient, name and verified. Plan given for midcycle per physician, see flowsheet for details. Mems-IDt message sent. Medications reviewed and verified, instructions [...] Trevizo MD, FLACO Referring Provider: ORTEGA MORRISSEY [[id number]] Allergies As of Date: 10/22/2023 (No Known Allergies) Date Reviewed: 08/18/2023 Reviewed by: Domenica Coon MA - Fully Assessed Visit Diagnosis:Female infertility [N97.9] Order(s):FOLLICULAR US [facility] [[id number]] Order #: [id number]. #:[id number] [id number]: 1 Prescriptions as of 10/22/2023 - [...] ERMA DONIS on 10/22/23 Normal [facility] Follicle Diameter USon 10-21 Indication Baseline [...] Read By: Ayanna Trevizo MD MATERNAL MEDICINE [facility] Radiology Study observation (narrative) [facility] 10-20-2023 CNPN Telephone (REIBD) LISSA RIVAS ([id number]) 1995 F Date Time Provider Department 10/20/23 SELF REIBD During your visit today, we recorded the following information about you: Keren Carcamo 10/20/2023 2:26 PM Signed Pts pharmacy called and would like to know when she needs to order trigger shot Ani Stovall APRN.CNP 10/20/2023 3:11 PM Signed patient instructed to order trigger now so that she has it by Wednesday Ani Stovall APRN.WHITEWASHER October 20, 2023 3:10 PM Allergies As [...] Encounter Status:Closed by ANI STOVALL on 10/20/23 [facility] 10-12-2023 [facility] Telephone (REIBD) LISSA RIVAS ([id number]) 1995 F Date Time Provider Department 10/12/23 [...] schedule the patient for the following- Location: [place] Provider: nurse Visit type: mid cycle Reason [...] ORTEGA MORRISSEY on 10/12/23 Normal [facility] No Panel Informationon 08-16 Interpretation and review of laboratory results Normal [facility] T4 FREE/FREE THYROXINEon Free T4 [Mass/Vol] 1.1 ng/dL 0.9 - 1.7 ng/dL [facility] THYROID PEROXIDASE ANTIBODYo n 08-17-2023 Interpretation and review of laboratory results Normal [facility] TPO Ab Qn 3.3 [IU]/mL [facility] Comment on above: Thyroid Peroxidase A ntibody test is used as an aid in diagnosis of autoimmune thyroid disease. Clinical correlation is required. [facility] THYROID STIMULATING HORMONEo n 08-17-2023 TSH Qn 2.690 m[IU]/L [facility] Comment on above: If the patient is [...] E, et al. 2017 Guidelines of the [place] Thyroid Association for the Diagnosis and Management of Thyroid Disease during and the . Thyroid, 2017:27:3:315-389. HCG QUAL UR B/Oon 07-29-2023 Interpretation and review of laboratory results Normal [facility] status Negative neg - pos [facility] alyce [facility] Quality Check Yes yes/no [facility] XR HYSTEROSALPINGOGRAMon XR HYSTEROSALPINGOGRAM * * *Final [...] or left fallopian tube. IMPRESSION: Normal hysterosalpingogram. Crime Lab Technician: PSCB Transcribe Date/Time: Aug 02 2023 4:22P Dictated by : ADRIANNA BAUMANN MD This examination was interpreted and the report reviewed and electronically signed by: ADRIANNA BAUMANN MD on Aug 02 2023 4:23PM EST [id number] [facility] 06-10-2023 CNPN Telephone ([facility]) KAYESUZANNASTEFANILISSA ([id number]) 1995 F Date Time Provider Department 06/10/23 ELSA PUENTES During your visit today, we recorded the following information about you: Elsa Puentes LGC 06/14/2023 1:38 PM Addendum Patient name and was confirmed at initiation of discussion. 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 Please see [employer] message for further discussion. CHRISTIE Magdaleno Licensed, [...] for children. Elsa (more content not included)... [facility] 04-23-2023 CNPN Telephone (NYDIA) LISSA RIVAS ([id number]) 1995 F Date Time Provider Department 04/23/23 ELSA PUENTES During your visit today, we recorded the following information about you: Elsa Puentes LG 05/17/2023 11:29 AM Signed Called patient to [...] NTHL1, PALB2, PDGFRA, PMS2, POLD1, POLE, POT1, KDXWA1A, PTCH1, PTEN, RAD51C, RAD51D, RB1, RET, SDHA, SDHAF2, SDHB, SDHC, SDHD, SMAD4, SMARCA4, SMARCB1, SMARCE1, STK11, SUFU, CXZK499, TP53, TSC1, TSC2, and VHL The Multi-Cancer [...] FORWARD. Elsa Puentes MS, [facility] Licensed, Certified Genetic Counselor Elsa Puentes [facility] 05/17/2023 11:29 AM Signed Spoke to Thao again, confirmed name/. Reviewed information regarding genetic testing. After our discussion, patient provided informed consent for SELF PAY Integrated BRACAnalysis with myRisk and SDHA single site mutation analysis. Order placed today. [facility] said the following about the SDHA variant: This SDHA variant would be outside of our reportable range, as we unfortunately do not offer CNV analysis of SDHA at this time. Please let me know if you have any additional questions. Discussed with patient they they cannot detect the familial mutation. 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 The patient was offered SDHA single site mutation analysis through [employer] or self pay Integrated BRACAnalysis with [employer] and SDHA single site mutation analysis through [employer]. After considering the risks, benefits, and limitations, the patient chose to pursue and provided informed consent for the following testing: SELF PAY Integrated BRACAnalysis with myRisk and SDHA single site mutation analysis through [employer]. The myRisk panel includes APC, MICHAEL, AXIN2, [...] to the presenting phenotype. We discussed that [employer] may contact the patient by text or phone call regarding billing. The patient should watch for this communication and respond promptly. The patient should contact [employer] directly with any billing questions (ph. [phone]). Elsa Puentes MS, [facility] Licensed, Certified Genetic Counselor Allergies As of Date: 04/23/2023 (No Known Allergies) Date Reviewed: 01/04/2023 Reviewed by: Domenica Coon Ma - Fully Assessed Reason for Visit: Follow Up [171] Primary Visit Diagnosis:Family history of cancer [Z80.9] Other Visit Diagnosis:Family history of gene mutation [Z84.81] Order(s):[facility] SEND OUT TST 1 [SQMISC1] Order #: [id number] FUTURE Prescriptions as of 05/17/2023 - letrozole [...] 04/23/2023 No (more content not included)... Normal [facility] PELVIC US WHIon 02-08-2023 [facility] Vital Signs Date Time Vital Sign Value Performing Clinician Facility 10-02-2024 11:12-0400 Body mass index (BMI) [Ratio] 40.1 kg/m2 Saravanan Ahumada DO Work Phone: [facility] 10-02-2024 11:12-0400 Body weight 102.69 kg Saravanan Zita DO Work Phone: [facility] 10-02-2024 11:12-0400 Diastolic blood pressure 84 mm[Hg] Saravanan Zita DO Work Phone: [facility] 10-02-2024 11:12-0400 Systolic blood pressure 136 mm[Hg] Saravanan Zita DO Work Phone: [facility] 09-25-2024 13:26-0400 Body mass index (BMI) [Ratio] 39.95 kg/m2 Saravanan Zita DO Work Phone: [facility] 09-25-2024 13:26-0400 Body weight 102.29 kg Saravanan Zita DO Work Phone: [facility] 09-25-2024 13:26-0400 Diastolic blood pressure 80 mm[Hg] Saravanan Zita DO Work Phone: [facility] 09-25-2024 13:26-0400 Systolic blood pressure 130 mm[Hg] Saravanan Zita DO Work Phone: [facility] 09-13-2024 11:47-0400 Body mass index (BMI) [Ratio] 39.59 kg/m2 Saravanan Zita DO Work Phone: [facility] 09-13-2024 11:47-0400 Body weight 101.38 kg Saravanan Zita DO Work Phone: [facility] 09-13-2024 11:47-0400 Diastolic blood pressure 82 mm[Hg] Saravanan Zita DO Work Phone: [facility] 09-13-2024 11:47-0400 Systolic blood pressure 126 mm[Hg] Saravanan Zita DO Work Phone: [facility] 09-12-2024 10:39-0400 Diastolic blood pressure 87 mm[Hg] Ruthann Poe PA-C Work Phone: [facility] 09-12-2024 10:39-0400 Systolic blood pressure 130 mm[Hg] Ruthann Lavoy PA-C Work Phone: [facility] 09-12-2024 10:08-0400 Body height 160 cm Ruthann Lavoy PA-C Work Phone: [facility] 09-12-2024 10:08-0400 Body mass index (BMI) [Ratio] 39.57 kg/m2 Ruthann Lavoy PA-C Work Phone: [facility] 09-12-2024 10:08-0400 Body weight 101.33 kg Ruthann Lavoy PA-C Work Phone: [facility] 08-31-2024 15:22-0400 Body height 160 cm Cristiana Zuñiga RN Work Phone: [facility] 08-31-2024 15:22-0400 Body mass index (BMI) [Ratio] 39.5 kg/m2 Cristiana Zuñiga RN Work Phone: [facility] 08-31-2024 15:22-0400 Body weight 101.15 kg Cristiana Zuñiga RN Work Phone: [facility] 08-30-2024 11:46-0400 Body mass index (BMI) [Ratio] 39.4 kg/m2 Saravanan Zita DO Work Phone: [facility] 08-30-2024 11:46-0400 Body weight 100.88 kg Saravanan Zita DO Work Phone: [facility] 08-30-2024 11:46-0400 Diastolic blood pressure 76 mm[Hg] Saravanan Zita DO Work Phone: [facility] 08-30-2024 11:46-0400 Systolic blood pressure 116 mm[Hg] Saravanan Zita DO Work Phone: [facility] 08-16-2024 08:38-0400 Body mass index (BMI) [Ratio] 40.08 kg/m2 Rupal THAYER Work Phone: [facility] 08-16-2024 08:38-0400 Body weight 102.63 kg Rupal THAYER Work Phone: [facility] 08-16-2024 08:38-0400 Diastolic blood pressure 80 mm[Hg] Rupal THAYER Work Phone: [facility] 08-16-2024 08:38-0400 Systolic blood pressure 114 mm[Hg] Rupal THAYER Work Phone: [facility] 07-18-2024 09:20-0400 Body height 160 cm Lito Velazquez MD Work Phone: [facility] 07-18-2024 09:20-0400 Body mass index (BMI) [Ratio] 40.03 kg/m2 Liot Velazquez MD Work Phone: [facility] 07-18-2024 09:20-0400 Body weight 102.51 kg Lito Velazquez MD Work Phone: [facility] 07-18-2024 09:20-0400 Diastolic blood pressure 78 mm[Hg] Lito Velazquez MD Work Phone: [facility] 07-18-2024 09:20-0400 Heart rate 90 /min Lito Velazquez MD Work Phone: [facility] 07-18-2024 09:20-0400 SaO2% (BldA) [Mass fraction] 98 % Lito Velazquez MD Work Phone: [facility] 07-18-2024 09:20-0400 Systolic blood pressure 128 mm[Hg] Lito Velazquez MD Work Phone: [facility] 05-23-2024 16:00-0500 Body height 160 cm Andrew Ferrer DPM Work Phone: [facility] 05-23-2024 16:00-0500 Body mass index (BMI) [Ratio] 38.83 kg/m2 Andrew ORDONEZM Work Phone: [facility] 05-23-2024 16:00-0500 Body weight 99.43 kg Andrew Ferrer DPM Work Phone: [facility] 03-08-2024 10:25-0500 Body height 160 cm Gabriel Roof DO Work Phone: [facility] 03-08-2024 10:25-0500 Body mass index (BMI) [Ratio] 40.03 kg/m2 Gabriel Roof DO Work Phone: [facility] 03-08-2024 10:25-0500 Body temperature 97.39 [degF] Gabriel Roof DO Work Phone: [facility] 03-08-2024 10:25-0500 Body weight 102.51 kg Gabriel Roof DO Work Phone: [facility] 03-08-2024 10:25-0500 Diastolic blood pressure 90 mm[Hg] Gabriel Roof DO Work Phone: [facility] 03-08-2024 10:25-0500 Systolic blood pressure 128 mm[Hg] Gabriel Roof DO Work Phone: [facility] 02-15-2024 15:12-0500 Body height 160 cm Robles Goldsmith DO Work Phone: [facility] 02-15-2024 15:12-0500 Body mass index (BMI) [Ratio] 38.26 kg/m2 Robles Pyleer DO Work Phone: [facility] 02-15-2024 15:12-0500 Body weight 97.98 kg Robles Pyleer DO Work Phone: [facility] 02-15-2024 15:12-0500 Diastolic blood pressure 84 mm[Hg] Robles Pyleer DO Work Phone: [facility] 02-15-2024 15:12-0500 Systolic blood pressure 136 mm[Hg] Robles Pyleer DO Work Phone: [facility] 08-17-2023 10:02-0400 Body mass index (BMI) [Ratio] 40.65 kg/m2 Mirta Gallagher MD Work Phone: [facility] 08-17-2023 10:02-0400 Body weight 104.1 kg Mirta Gallagher MD Work Phone: [facility] 08-17-2023 10:02-0400 Diastolic blood pressure 79 mm[Hg] Mirta Gallagher MD Work Phone: [facility] 08-17-2023 10:02-0400 Heart rate 73 /min Mirta Gallagher MD Work Phone: [facility] 08-17-2023 10:02-0400 Systolic blood pressure 129 mm[Hg] Mirta Gallagher MD Work Phone: [facility] 06-26-2022 19:10-0400 Body height 157.48 cm Josefina Kay Other [employer] Other 06-26-2022 19:10-0400 Body mass index (BMI) [Ratio] 40.64 kg/m2 Josefina Kay Other [employer] Other 06-26-2022 19:10-0400 Body weight 100.79 kg Josefina Kay Other [employer] Other 06-26-2022 19:10-0400 Diastolic blood pressure 87 mm[Hg] Josefina Kay Other [employer] Other 06-26-2022 19:10-0400 Respiratory rate 18 /min Josefina Kay Other [employer] Other 06-26-2022 19:10-0400 SaO2% (BldA) [Mass fraction] 98 % Josefina Kay Other [employer] Other 06-26-2022 19:10-0400 Systolic blood pressure 132 mm[Hg] Josefina Kay Other [employer] Other Encounters Encounter Date Encounter Type Care Provider Facility Start: 10-04-2024 End: 10-04-2024 Clinisync Result Encounter Generic External Data Provider [facility] External Department Unsolicited Start: 10-04-2024 End: 10-04-2024 Clinisync Result Encounter Generic External Data Provider [facility] External Department Unsolicited Start: 10-02-2024 End: 10-02-2024 flow sheet Saravanan Zita DO Work Phone: [facility] Comment on above: Herpes simplex (Prim jose manuel Dx); 33 weeks gestation of ([facility]); Encounter for routine care ([facility]); Third trimester ([facility]) Start: 10-02-2024 End: 10-02-2024 ambulatory SARAVANAN ZITA Not Available Start: 09-27-2024 End: 09-27-2024 Clinisync Result Encounter Generic External Data Provider [facility] External Department Unsolicited Start: 09-27-2024 End: 09-27-2024 Clinisync Result Encounter Generic External Data Provider [facility] External Department Unsolicited Start: 09-25-2024 End: 09-25-2024 Bamboo flowsheet Saravanan Zita DO Work Phone: [facility] Start: 09-25-2024 End: 09-25-2024 Bamboo flowsheet Saravanan Zita DO Work Phone: [facility] Start: 09-25-2024 End: 09-25-2024 flow sheet Saravanan Zita DO Work Phone: [facility] Comment on above: Third trimester preg talya ([facility]); Insulin controlled gestational diabetes mellitus (GDM) during , antepartum ([facility]); 32 weeks gestation of ([facility]) Start: 09-25-2024 End: 09-25-2024 ambulatory SARAVANAN ZITA Not Available Start: 09-20-2024 End: 09-20-2024 Office outpatient visit 25 minutes Alton GONZALEZ Work Phone: [facility] Comment on above: Insulin controlled g estational diabetes mellitus (GDM) in third trimester (Primary Dx); Gestational diabetes requiring insulin Start: 09-20-2024 End: 09-20-2024 ambulatory ALTON REBOLLEDO [facility] Start: 09-18-2024 End: 09-18-2024 Orders Only Corby Rose [employer] [facility]- [facility] Comment on above: Gestational diabetes requiring insulin; [...] Bamboo flowsheet Saravanan Zita DO Work Phone: [facility] Start: 09-13-2024 End: 09-13-2024 ambulatory SARAVANAN ZITA Not Available Start: 09-13-2024 End: 09-13-2024 flow sheet Saravanan Zita DO Work Phone: [facility] Comment on above: History of gestation al diabetes (Primary Dx); Third trimester ([facility]); 31 weeks gestation of ([facility] Start: 09-12-2024 End: 09-12-2024 Clinisync Result Encounter Saravanan Zita DO Work Phone: [facility] External Department Unsolicited Start: 09-12-2024 End: 09-12-2024 Clinisync Result Encounter Saravanan Zita DO Work Phone: [facility] External Department Unsolicited Start: 09-12-2024 End: 09-12-2024 Documentation procedure Ruthann Poe PA-C Work Phone: [facility] Start: 09-12-2024 End: 09-12-2024 Office outpatient new 45 minutes Ruthann Poe PA-C Work Phone: [facility] Comment on above: Insulin controlled g estational diabetes mellitus (GDM) in third trimester; Abnormal liver enzymes; Abnormal genetic test; Gestational diabetes requiring insulin; Elevated blood pressure affecting , antepartum Start: 09-12-2024 End: 09-12-2024 ambulatory RUTHANN POE [facility] Start: 09-11-2024 End: 09-11-2024 Telemedicine consultation with patient Mirta Gallagher MD Work Phone: Endocrinology Start: 09-11-2024 End: 09-11-2024 ambulatory Mrita Gallagher MD Work Phone: Endocrinology Comment on above: Monoallelic mutation of SDHA gene (Primary Dx); Gestational diabetes mellitus (GDM) in third trimester, gestational diabetes method of control unspecified (HCC) Start: 09-06-2024 End: 09-06-2024 Orders Only Yesi Meade APRN-LYNDSAYM Work Phone: [facility] Start: 09-05-2024 End: 09-05-2024 Orders Only Jackson Cruz MD Work Phone: [facility] Comment on above: Monoallelic mutation of SDHA gene (Primary Dx) Start: 09-04-2024 End: 09-04-2024 ambulatory MIRTA GALLAGHER Facility:[facility] Start: 08-31-2024 End: 08-31-2024 ambulatory Cristiana Zuñiga RN Work Phone: [facility] Comment on above: Gestational diabetes mellitus (GDM) in third trimester, gestational diabetes method of control unspecified (Primary Dx) Start: 08-30-2024 End: 08-30-2024 Bamboo flowsheet Saravanan Zita DO Work Phone: [facility] Start: 08-30-2024 End: 08-30-2024 Bamboo flowsheet Saravanan Zita DO Work Phone: [facility] Start: 08-30-2024 End: 08-30-2024 Chart abstracting Scanning Provider External [facility] Start: 08-30-2024 End: 08-30-2024 ambulatory SARAVANAN ZITA [...] encounter procedure Lito Velazquez MD Work Phone: [facility] Work Phone: Start: 08-24-2024 End: 08-24-2024 ambulatory Lito Velazquez MD Work Phone: [facility] Work Phone: Start: 08-23-2024 End: 08-23-2024 [...] yrs Lito Velazquez MD Work Phone: [facility] Comment on above: Annual physical exam (Primary [...] 05-23-2024 Office outpatient new 30 minutes Andrew Timothy Ferrer DPM Work Phone: [facility] Comment [...] 2024 End: 04-04-2024 Patient encounter procedure Ortega Yuni JONESWHITEWASHER Work Phone: [facility] Comment on [...] Start: 03-17-2024 End: 03-17-2024 ambulatory ORTEGA MINDZORA Facility:[facility] Start: 03-17-2024 End: 03-17-2024 Patient encounter procedure Ortega Morrissey DEBBIE.JORDAN Work Phone: [facility] Comment on above: Supervision of pregn thor with history of infertility, first trimester (Primary Dx) Start: 03-17-2024 End: 03-17-2024 Telemedicine consultation with patient Ortega Morrissey HELEN Work Phone: [facility] Start: 03-16-2024 End: 03-16-2024 Orders Only Madeleine rOta PA-C Work Phone: [facility] Comment on above: Encounter for pregna ncy test, result positive (Primary Dx) Start: 03-15-2024 End: 03-15-2024 ambulatory ORTEGA YUNI Facility:[facility] Start: 03-13-2024 End: 03-13-2024 ambulatory ORTEGASARAHY WATERSMONET Facility:[facility] Start: 03-13-2024 End: 03-13-2024 Telephone encounter Fede Hairston MD Work Phone: [facility] Comment on above: +hpt today/lmp 02/12 skipped treatment this month Start: 03-10-2024 End: 03-10-2024 ambulatory MIRTA GALLAGHER Facility:[facility] Start: 03-08-2024 End: 03-08-2024 Office outpatient new 45 minutes Gabriel R Roof DO Work Phone: [facility] Comment on above: Otalgia of both ears (Primary Dx); Temporomandibular joint disorder; Chronic allergic rhinitis; Postnasal drip Start: 03-08-2024 End: 03-08-2024 ambulatory [facility] Start: 02-28-2024 End: 02-28-2024 Telephone encounter Fede Hairston MD Work Phone: [facility] Comment on above: ortega cueva is not el ared for us should she still have it do Start: 02-23-2024 End: 02-25-2024 E-mail encounter from caregiver Ortega Yuni CERVANTES Work Phone: [facility] Start: 02-23-2024 End: 02-25-2024 Patient encounter procedure Ortega Morrissey APRN.WHITEWASHER Work Phone: [facility] Comment on above: Next steps Start: 02-23-2024 End: 02-23-2024 ambulatory FEDE HAIRSTON Facility:[facility] Start: 02-23-2024 End: 02-23-2024 Nursing evaluation of patient and report Nurse Gayathri [facility] Comment on above: Female infertility Start: 02-21-2024 End: 02-21-2024 Telephone encounter Fede Hairston MD Work Phone: [facility] Comment on above: [facility] Start: 02-17-2024 End: 02-17-2024 ambulatory FEDE HAIRSTON Facility:[facility] Start: 02-17-2024 End: 02-17-2024 Office outpatient visit 25 minutes Fede Hairston MD Work Phone: [facility] Comment on above: PCOS (polycystic ova kwadwo syndrome) (Primary Dx) Start: 02-15-2024 End: 02-15-2024 Patient encounter status Robles Pyleer DO Work Phone: [facility] Start: 02-15-2024 End: 02-15-2024 Periodic preventive med est patient 18-39 yrs Robles Mead Rupal DO Work Phone: [facility] Comment on above: Encounter for gyneco logical examination without abnormal finding (Primary Dx); Screening for malignant neoplasm of cervix; Desire for ; BV (bacterial vaginosis) Start: 02-15-2024 End: 02-15-2024 ambulatory ROBLES GOLDSMITH Not Available Start: 02-15-2024 End: 02-17-2024 External Result Encounter Robles oGldsmith DO Work Phone: [facility] External Department Unsolicited Start: 02-15-2024 End: 02-17-2024 External Result Encounter Robles Alyce Goldsmith DO Work Phone: [facility] External Department [...] 01-14-2024 End: 01-14-2024 Telephone encounter Ortega Morrissey APRN.WHITEWASHER Work Phone: [facility] Comment on above: iui plan , cd1 01/12 Start: 01-14-2024 End: 01-17-2024 ambulatory MIRTA GALLAGHER Facility:[facility] Start: 12-31-2023 End: 12-31-2023 ambulatory [facility] Facility:[facility] Start: 12-31-2023 End: 12-31-2023 Patient encounter procedure Ortega Morrissey APRN.WHITEWASHER Work Phone: [facility] Comment on above: Encounter for artifi cial insemination (Primary Dx) Start: 12-21-2023 End: 12-21-2023 [facility] Facility:[facility] Start: 12-21-2023 End: 12-21-2023 Nursing evaluation of patient and report Fede Hairston MD Work Phone: [facility] Comment on above: Female infertility Start: 12-13-2023 End: 12-13-2023 Telephone encounter Fede Hairston MD Work Phone: [facility]ertility Comment on above: LMP 12/12/23/ set up monitored cycle; Patient Update Start: 11-28-2023 End: 11-28-2023 ambulatory DESHAWN RIOJAS Facility:[facility] Start: 11-28-2023 End: 11-28-2023 Patient encounter procedure Deshawn Riojas MD Work Phone: [facility]ductive [facility]inology Infertility Comment on above: Female infertility ( Primary Dx) Start: 11-23-2023 End: 11-23-2023 ambulatory Ortega Morrissey APRN.WHITEWASHER Work Phone: Reproductive Endocrinology Infertility Start: 11-23-2023 End: 11-23-2023 Patient encounter procedure Ortega Morrissey APRN.WHITEWASHER Work Phone: Reproductive Endocrinology Infertility Comment on above: IUI Round 2 Start: 11-22-2023 End: 11-22-2023 ambulatory ORTEGA MORRISSEY Facility:[facility] Start: 11-22-2023 End: 11-22-2023 Patient encounter procedure Ortega Morrissey APRN.WHITEWASHER Work Phone: Reproductive Endocrinology Infertility Comment on above: Procreation manageme nt investigation and testing (Primary Dx) Start: 11-22-2023 End: 11-22-2023 Telemedicine consultation with patient Ortega Morrissey APRJEANA Work Phone: Reproductive Endocrinology Infertility Start: 11-22-2023 End: 11-22-[address] [facility] Facility:[facility] Start: 11-22-2023 End: 11-22-2023 ambulatory [facility] Facility:[facility] Start: 11-22-2023 End: 11-22-2023 Nursing evaluation of patient and report Nurse Gayathri [facility] Infertility Comment on above: Female infertility Start: 11-18-2023 End: 11-18-2023 ambulatory Ortega Morrissey DEBBIE.WHITEWASHER Work Phone: Reproductive Endocrinology Infertility Start: 11-18-2023 End: 11-18-2023 Patient encounter procedure Ortega Morrissey APRN.WHITEWASHER Work Phone: Reproductive Endocrinology Infertility Comment on above: IUI Medication quest ion Start: 11-12-2023 End: 11-15-2023 Telephone encounter Self [facility] Comment on above: iui 10/25 , cd 1 11/11 Start: 10-26-2023 End: 10-26-2023 ambulatory Or[place]ga Morrissey DEBBIE.WHITEWASHER Work Phone: Reproductive Endocrinology Infertility Start: 10-26-2023 End: 10-26-2023 Patient encounter procedure Ortega Morrissey DEBBIE.WHITEWASHER Work Phone: Reproductive Endocrinology Infertility Comment on above: Encounter for artifi cial insemination (Primary Dx) Progesterone Questio n Start: 10-22-2023 End: 10-22-2023 Nursing evaluation of patient and report Nurse Gayathri [facility]ertility Comment on above: Female infertility Start: 10-22-2023 End: 10-22-2023 ambulatory ORTEGA MORRISSEY Facility:[facility] Start: 10-20-2023 Telephone encounter Self [facility] Infertility Comment on above: trigger shot Start: 10-12-2023 Telephone encounter Fede Hairston MD Work Phone: Reproductive Endocrinology Infertility Comment on above: [place]te[place] lmp today/re us day 11-13 for iui Start: 09-10-2023 End: 09-10-2023 Patient encounter procedure Ortega Morrissey DEBBIE.CNElisa Work Phone: Reproductive Endocrinology Infertility Comment on above: Screen for sexually transmitted diseases (Primary Dx); Secondary amenorrhea; Female infertility Start: 09-10-2023 End: 09-10-2023 Telemedicine consultation with patient [place]tega Morrissey DEBBIE.CNM Work Phone: Reproductive Endocrinology Infertility Start: 09-08-2023 [...] Instructions for janette eduling SA Start: 07-29-2023 ambulatory LOREEMD YOVANNY Facility:[facility] Start: 07-29-2023 End: 07-29-2023 Subsequent hospital visit by physician Hstammi [facility] Radiology Gastrointestinal Comment on above: Fertility testing [Z 31.41] Start: 07-29-2023 End: 07-29-2023 Nursing evaluation of patient and report Nurse Gayathri [facility] Rep[facility] Endocr[facility]ology Infertility Comment on above: Encounter for fertil ity testing (Primary Dx); Pre-procedure lab exam Start: 07-29-2023 End: 07-29-2023 Patient encounter status Nurse Gayathri [facility] Start: 06-16-2023 Telephone encounter Fina pérez [facility] Work Phone: Genetic Healthcare Comment on above: Supplemental Manager - O ther (Hereditary Paraganglioma- Pheochromocytoma Syndrome clinic) Start: 06-10-2023 Telephone encounter Elsa altman [facility] Work Phone: Genetic Healthcare Comment on above: Results (Genetic) Start: 05-25-2023 Telephone encounter Fede Hairston MD Work Phone: Reproductive Endocrinology Infertility Comment on above: refill letrozol/cycl e to start in next week Start: 04-23-2023 Telephone encounter Elsa altman [facility] Work Phone: Genetic Healthcare Comment on above: Follow Up Start: 04-21-2023 End: 04-21-2023 ambulatory FEDE HAIRSTON Facility[facility] Start: 04-21-2023 End: 04-21-2023 ambulatory Elsa Puentes [facility] Work Phone: Genetic Healthcare Comment on above: Family history of br east cancer (Primary Dx); Family history of prostate cancer Start: 04-21-2023 End: 04-21-2023 Telemedicine consultation with patient Elsa Puentes [facility] Work Phone: [facility] Start: 04-07-2023 End: 04-07-2023 ambulatory Fede Hairston MD Work Phone: Reproductive Endocrinology Infertility Comment on above: PCOS (polycystic ova kwadwo syndrome) (Primary Dx); Fertility testing Start: 04-07-2023 End: 04-07-2023 Telemedicine consultation with patient Fede Hairston MD Work Phone: [facility] Start: 02-08-2023 End: 02-08-2023 ambulatory Fede Hairston MD Work Phone: Reproductive Endocrinology Infertility Start: 02-08-2023 End: 02-08-2023 Patient encounter procedure Fede Hairston MD Work Phone: [facility] Start: 02-04-2023 Telephone encounter Fede Hairston MD Work Phone: Reproductive Endocrinology Infertility Comment on above: started letrozole Start: 06-26-2022 End: 06-26-2022 ambulatory Josefina Kay Other [employer] Other Start: 06-26-2022 Office outpatient visit 15 minutes Josefina Kay [facility] Start: 12-05-2019 Patient encounter procedure [facility] Facility:[facility] Procedures Date Procedure Procedure Detail Performing Clinician Start: 10-04-2024 US OB BPP W NON-STRESS Generic External Data Provider Start: 10-02-2024 Urnls dip stick/tablet rgnt non-auto w/o micrscp Saravanan Zita DO Work Phone: Start: 09-27-2024 US OB BPP W NON-STRESS Generic External Data Provider Start: 09-25-2024 Urnls dip stick/tablet rgnt non-auto w/o micrscp Saravanan Zita DO Work Phone: Start: 09-14-2024 [facility] TOTAL PROTEIN 24 HOUR URINE Saravanan Ahumada DO Work Phone: Start: 09-13-2024 Urnls dip stick/tablet rgnt non-auto w/o micrscp Selina Denson NP Work Phone: Start: 09-12-2024 [facility] UA (CLEAN/CATCH) SURFACE GRINDING MACHINE HAND/MICRO IF IND. Saravanan Ahumada DO Work Phone: Start: 09-12-2024 Blood count complete automated Ruthann THAYER-Arlin Work Phone: Start: 09-12-2024 Urine albumin quantitative Ruthann Poe PA-C Work Phone: Start: 09-05-2024 Follow-up visit [...] micrscp Saravanan Ahumada DO Work Phone: Start: 06-19-2024 CHLAMYDIA/GC BY PCR PATTI SWAB Not In System Ref Prov Start: 06-19-2024 ULTRASOUND OFFICE Not In System Ref Pr ov Start: 06-19-2024 Microscopic observation [Identifier] in Cervix by Cyto stain Scanning External Start: 05-23-2024 US OB CERVICAL LENGTH Generic External D cceile Provider Start: 05-22-2024 UNLISTED LAB TEST Not In System Ref Pr ov Start: 05-22-2024 Urnls dip stick/tablet rgnt non-auto w/o micrscp Saravanan Zita DO Work Phone: Start: 05-15-2024 Urnls dip stick/tablet rgnt non-auto w/o micrscp Saravanan Zita DO Work Phone: Start: 04-21-2024 BOX TEST Saravananmel Ahumada DO Work Phone: Start: 04-21-2024 Antibody screen [...] uterus after 1st trimest 1/ gestation Ortega Morrissey APRN.WHITEWASHER Work Phone: Start: 03-27-2024 Drug scrn 1+ class nonchromo Not In System Ref Prov Start: 02-23-2024 Us pelvic nonobstetric image dcmtn limited/f/u Ortega Morrissey CYCLE LIAISON.WHITEWASHER Work Phone: Start: 02-15-2024 Smr prim src wet mount nfct agt Robles Goldsmith DO Work Phone: Start: 02-15-2024 APTIMA MULTITEST VAGINAL Robles kenny DO Work Phone: Start: 12-21-2023 Us pelvic nonobstetric image dcmtn limited/f/u Ortega Mindzora CYCLE LIAISON.WHITEWASHER Work Phone: Start: 11-22-2023 Us pelvic nonobstetric image dcmtn limited/f/u Ortega Mindzora CYCLE LIAISON.WHITEWASHER Work Phone: Start: 10-22-2023 Us pelvic nonobstetric image dcmtn limited/f/u Ortega Waterszora CYCLE LIAISON.WHITEWASHER Work Phone: Start: 07-29-2023 Urine test visual color cmprsn meths Ortega Waterszora CYCLE LIAISON.CNM Work Phone: Start: 02-08-2023 Us pelvic nonobstetric real-time image complete Fede Hairston MD Work Phone: Plan of Treatment Date Care Activity Detail Author Start: 2070 RSV Vaccine (1 - 1-dose 75+ series) RSV Vaccine (1 - 1-dose 75+ series) [facility] Start: 2045 Zoster Vaccines (1 of 2) Zoster Vaccines (1 of 2) [facility] Start: 06-26-2032 DTaP,Tdap and Td Vaccines (7 - Td or Tdap) DTaP,Tdap and Td Vaccines (7 - Td or Tdap) [facility] Start: 06-26-2032 DTaP/Tdap/Td Vaccines (7 - Td or Tdap) DTaP/Tdap/Td Vaccines (7 - Td or Tdap) [facility] Start: 06-26-2032 Urine microalbumin profile DTaP,Tdap,Td Vaccine (7 - Td or Tdap) [facility] Start: 06-20-2027 Screening for malignant neoplasm of cervix Pap Smear [facility] Start: 09-12-2025 Adult BMI Screening Adult BMI Screening [facility] Start: 09-12-2025 Tobacco Screening Tobacco Screening [facility] Start: 08-31-2025 Adult BMI Screening Adult BMI Screening [facility] Start: 07-24-2025 End: 07-24-2025 Patient encounter procedure [facility] Start: 07-18-2025 End: 10-17-2025 CBC W Auto Differential panel - Blood CBC and differential Lab Routine Annual physical exam Expected: 07/18/2025 (Approximate), Expires: 10/17/2025 [facility] Comment on above: Expected: 07/18/2025 (Approximate), [...] physical exam Expected: 07/18/2025 (Approximate), Expires: 10/17/2025 [facility] Comment on above: Expected: 07/18/2025 (Approximate), Expi res: 10/17/2025 Start: 07-18-2025 End: 10-17-2025 Thyrotropin [Units/volume] in Serum or Plasma TSH Lab Routine Annual physical exam Expected: 07/18/2025 (Approximate), Expires: 10/17/2025 [facility] Comment on above: Expected: 07/18/2025 (Approximate), Expi res: 10/17/2025 Start: 11-27-2024 Influenza vaccination [facility] Start: 10-16-2024 End: 10-16-2024 Patient encounter procedure 10/16/2024 2:00 PM EDT Office Visit Maternal- Medicine at [facility] [address] [place] [address] Vy Pemberton MD [address] [address] Maternal- Medicine at [facility] Start: 10-11-2024 End: 10-11-2024 Patient encounter procedure 10/11/2024 2:00 PM EDT Office Visit Maternal- Medicine at [facility] [address] [place] [address] Alton Rebolledo, CYCLE LIAISON-WHITEWASHER [address] [place] [address] Maternal- Medicine at [facility] Start: 10-09-2024 End: 10-09-2024 Patient encounter procedure 10/09/2024 9:00 AM EDT Routine [facility] [address] [place] [phone] Saravanan Ahumada, DO [address] [place] [address] [facility] Start: 10-02-2024 End: 10-02-2024 Patient encounter procedure 10/02/2024 11:00 AM EDT Routine [facility] [address] [place] [phone] Saravanan Ahumada, DO [address] [place] [address] [facility] Start: 10-02-2024 End: 10-02-2024 Professional / ancillary services management 10/02/2024 10:30 AM EDT Ancillary Procedure [facility] [address] [place] [phone] [facility] Start: 09-25-2024 End: 09-25-2024 Patient encounter procedure 09/25/2024 1:00 PM EDT Routine [facility] [address] [place] [phone] Saravanan Ahumada, DO [address] [place], [place] [phone] Arrived [facility] Comment on above: Arrived Start: 09-20-2024 End: 09-20-2024 Telemedicine consultation with patient 09/20/2024 11:00 AM EDT Telemedicine Maternal- Medicine at [facility] [address] [place] [phone] Alton Rebolledo, CYCLE LIAISON-WHITEWASHER [address] [place] [address] Maternal- Medicine at [facility] Start: 09-13-2024 End: 03-15-2025 US biophysical profile w non stress test US biophysical profile w non stress test Imaging Routine History of gestational diabetes Expected: 09/13/2024 (Approximate), Expires: 03/15/2025 [facility] Work Phone: Comment on above: Expected: 09/13/2024 (Approximate), Expi res: 03/15/2025 Start: 09-13-2024 End: 01-13-2025 US for US OB follow up transabdominal approach Imaging Routine History of gestational diabetes Expected: 09/13/2024, Expires: 01/13/2025 [facility] Comment on above: Expected: 09/13/2024, Expires: Start: 09-13-2024 End: 09-13-2024 Patient encounter procedure 09/13/2024 11:30 AM EDT Routine [facility] [address] [place] [phone] Saravanan Ahumada, DO [address] [facility] [place] [address] [facility] Start: 09-11-2024 End: 12-11-2024 METANEPHRINES, FREE PLASMA METANEPHRINES, FREE PLASMA Lab Routine Monoallelic mutation of SDHA gene Expected: 09/11/2024, Expires: 12/11/2024 [facility] Work Phone: Comment on above: Expected: 09/11/2024, Expires: Start: 09-11-2024 End: 09-11-2024 ambulatory 09/11/2024 9:00 AM EDT 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 [place] [address] [address] [place] [address] 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 Start: 08-31-2024 End: 08-31-2024 ambulatory 08/31/2024 1:30 PM EDT Support Visit Maternal- Medicine at [facility] [address] [place] [phone] Cristiana Zñuiga RN [address] [address] Nereyda Zheng LD [address] [place] [address] Maternal- Medicine at [facility] Start: 08-30-2024 End: 08-30-2024 Patient encounter procedure 08/30/2024 11:20 AM EDT Routine [facility] [address] [facility] [place] [phone] Saravanan Ahumada, [address] [facility] [place] [address] [facility] Start: 08-16-2024 End: 08-16-2024 [...] Polycystic ovaries Expected: 07/18/2024 (Approximate), Expires: 10/17/2024 [facility] Comment on above: Expected: 07/18/2024 (Approximate), Expi res: 10/17/2024 Start: 07-18-2024 End: 10-17-2024 US Heart Transthoracic Transthoracic echo (TTE) complete Echocardiography Routine Palpitations Murmur Expected: 07/18/2024 (Approximate), Expires: 10/17/2024 [facility] Comment on above: Expected: 07/18/2024 (Approximate), Expi res: 10/17/2024 Start: 07-18-2024 End: 07-18-2024 Patient encounter procedure 07/18/2024 9:15 AM EDT Office Visit [facility] [address] [place] [phone] Lito Velazquez MD [address] [place] [address] [facility] Start: 07-17-2024 End: 07-17-2025 CBC panel - Blood by Automated count CBC Lab Routine Diabetes mellitus screening Expected: 07/17/2024 (Approximate), Expires: 07/17/2025 [facility] Work Phone: Comment on above: Expected: 07/17/2024 (Approximate), Expi res: 07/17/2025 Start: 07-17-2024 End: 07-17-2025 Measurement of glucose 1 hour after glucose challenge for glucose tolerance test Glucose tolerance, 1 hour Lab Routine Diabetes mellitus screening Expected: 07/17/2024 (Approximate), Expires: 07/17/2025 [facility] Comment on above: Expected: 07/17/2024 (Approximate), Expi res: 07/17/2025 Start: 06-19-2024 End: 06-19-2024 Patient encounter procedure [facility] Start: 05-23-2024 End: 05-23-2024 Patient encounter procedure 05/23/2024 4:00 PM EST Office Visit [facility] [address] [facility] [place] [phone] Andrew Ferrer, NATANAEL [address] [place], [place] [phone] [facility] Start: 05-22-2024 End: 07-20-2024 Alpha fetoprotein, maternal Alpha fetoprotein, maternal Lab Routine Second trimester 14 weeks gestation of Expected: 05/22/2024 (Approximate), Expires: 07/20/2024 [facility] Work Phone: Comment on above: Expected: 05/22/2024 (Approximate), Expi res: 07/20/2024 Start: 05-22-2024 End: 05-22-2025 US Pelvis transvaginal US OB transvaginal Imaging Routine Spotting in Expected: 05/22/2024, Expires: 05/22/2025 [facility] Comment on above: Expected: 05/22/2024, Expires: Start: 05-22-2024 End: 05-22-2024 Patient encounter procedure [facility] Comment on above: Arrived Start: 05-01-2024 End: 05-01-2024 ambulatory 05/01/2024 3:15 PM EST Initial [facility] [address] [phone] Manju Alford DO [address] [phone] [facility] Start: 04-21-2024 End: 04-21-2025 ABO/Rh ABO/Rh Lab Routine Missed menses , unspecified gestational age Expected: 04/21/2024 (Approximate), Expires: 04/21/2025 [facility] Comment on above: Expected: 04/21/2024 (Approximate), Expi res: 04/21/2025 Start: 04-21-2024 End: 04-21-2025 Blood type and Indirect antibody screen panel - Blood Type and screen Lab Routine Missed menses , unspecified gestational age Expected: 04/21/2024 (Approximate), Expires: 04/21/2025 [facility] Comment on above: Expected: 04/21/2024 (Approximate), Expi res: 04/21/2025 Start: 04-21-2024 End: 04-21-2025 Drugs of abuse panel - Urine by Screen method Rapid drug screen, urine Lab Routine , unspecified gestational age Encounter for supervision of normal first in first trimester Expected: 04/21/2024 (Approximate), Expires: 04/21/2025 [facility] Comment on above: Expected: 04/21/2024 (Approximate), Expi res: 04/21/2025 Start: 04-20-2024 End: 04-20-2025 US Pelvis transvaginal US OB transvaginal Imaging Routine Missed menses Expected: 04/20/2024, Expires: 04/20/2025 [facility] Work Phone: Comment on above: Expected: 04/20/2024, Expires: Start: 04-12-2024 End: 04-12-2024 Professional / ancillary services management 04/12/2024 4:00 PM EST Ancillary Procedure [facility] [address] [phone] [facility] Start: 2024 End: 2024 Nursing evaluation of patient and report 2024 11:10 AM EST Nurse Visit [facility] Inf[facility] [address] [place] [address] ob scan [facility] Comment on above: ob scan Start: 03-30-2024 End: 03-30-2024 Patient encounter procedure 03/30/2024 12:40 PM EST [facility] [address] [place] [address] Cira Garcia V, MD [address] [place], [place] [phone] Weight management Endocrinology Comment on above: Weight management Start: 03-27-2024 End: 03-27-2025 Bacteria identified in Urine by Culture Urine culture Microbiology Routine Encounter for supervision of normal first in first trimester Expected: 03/27/2024 (Approximate), Expires: 03/27/2025 [facility] Comment on above: Expected: 03/27/2024 [...] first trimester Expected: 03/27/2024 (Approximate), Expires: 03/27/2025 [facility] Comment on above: Expected: 03/27/2024 [...] first trimester Expected: 03/27/2024 (Approximate), Expires: 03/27/2025 [facility] Comment on above: Expected: 03/27/2024 (Approximate), Expi res: 03/27/2025 Start: 03-27-2024 End: 03-27-2025 Hepatitis C virus Ab [Presence] in Serum or Plasma by Immunoassay Hepatitis C antibody Lab Routine Encounter for supervision of normal first in first trimester Expected: 03/27/2024 (Approximate), Expires: 03/27/2025 [facility] Comment on above: Expected: 03/27/2024 (Approximate), Expi res: 03/27/2025 Start: 03-27-2024 End: 03-27-2025 HIV-1/HIV-2 antigen/antibody combination immunoassay HIV-1 and HIV-2 antibodies Lab Routine Encounter for supervision of normal first in first trimester Expected: 03/27/2024 (Approximate), Expires: 03/27/2025 [facility] Comment on above: Expected: 03/27/2024 (Approximate), Expi res: 03/27/2025 Start: 03-27-2024 End: 03-27-2025 Reagin Ab [Presence] in Serum by RPR RPR Lab Routine Encounter for supervision of normal first in first trimester Expected: 03/27/2024 (Approximate), Expires: 03/27/2025 [facility] Comment on above: Expected: 03/27/2024 (Approximate), Expi res: 03/27/2025 Start: 03-27-2024 End: 03-27-2025 Rubella antibody, IgG Rubella antibody, IgG Lab Routine Encounter for supervision of normal first in first trimester Expected: 03/27/2024 (Approximate), Expires: 03/27/2025 [facility] Comment on above: Expected: 03/27/2024 (Approximate), Expi res: 03/27/2025 Start: 03-27-2024 End: 03-27-2025 Urinalysis complete panel - Urine Urinalysis with microscopic Lab Routine Encounter for supervision of normal first in first trimester Expected: 03/27/2024 (Approximate), Expires: 03/27/2025 [facility] Work Phone: Comment on above: Expected: 03/27/2024 (Approximate), Expi res: 03/27/2025 Start: 03-17-2024 End: 03-17-2025 OBSTETRIC ULTRASOUND WHI OBSTETRIC ULTRASOUND WHI Anc Imaging Routine Supervision of with history of infertility, first trimester Expected: 03/17/2024, Expires: 03/17/2025 [facility] Work Phone: Comment on above: Expected: 03/17/2024, Expires: Start: 03-17-2024 End: 03-17-2024 Patient encounter procedure 03/17/2024 2:00 PM EST [facility] Reproductive Endocrinology Infertility [address] [address] [place] APRN.WHITEWASHER [address] [place] [address] new preg [facility]roductive Endocrinology Infertility Comment on above: new preg Start: 03-16-2024 End: 06-15-2024 Choriogonadotropin.be ta subunit [Units/volume] in Serum or Plasma HCG QUANTITATIVE Lab Routine Encounter for test, result positive Expected: 03/16/2024, Expires: 06/15/2024 [facility] Work Phone: Comment on above: Expected: 03/16/2024, Expires: Start: 03-15-2024 End: 03-15-2024 Patient encounter procedure 03/15/2024 3:45 PM EST Office Visit [facility] [address] [place] [address] [place] [address] lab [facility] Comment on above: lab Start: 02-28-2024 End: 05-29-2024 Progesterone [Mass/volume] in Serum or Plasma PROGESTERONE Lab Routine Female infertility Expected: 02/28/2024, Expires: 05/29/2024 [facility] Work Phone: Comment on above: Expected: 02/28/2024, Expires: Start: 02-26-2024 End: 02-26-2024 Patient encounter procedure 02/26/2024 6:00 PM EST Office Visit [facility] [id number] [place] [address] follicle us -benefit check [facility] Comment on above: follicle us -benefit check Start: 02-23-2024 End: 02-23-2024 Nursing evaluation of patient and report 02/23/2024 7:00 AM EST Nurse Visit [facility] [address] [place] [address] Rej, Nurse Gayathri [facility] [address] [place] [address] midcycle [facility] Comment on above: midcycle Start: 02-17-2024 End: 02-17-2024 Follow-up encounter 02/17/2024 9:30 AM EST [facility] [address] [place] [address] Fede Hairston MD [address] [place] [address] follow up [facility] Comment on above: follow up Start: 02-15-2024 End: 02-14-2025 FOLLICULAR US WHI FOLLICULAR US WHI Anc Imaging Routine Female infertility Expected: 02/15/2024, Expires: 02/14/2025 [facility] Work Phone: Comment on above: Expected: 02/15/2024, Expires: Start: 01-19-2024 End: 01-19-2024 Patient encounter procedure 01/19/2024 6:00 PM EDT Office Visit [facility] [address] [place] [address] iui-benefit check [facility] Comment on above: iui-benefit check Start: 12-13-2023 End: 12-12-2024 FOLLICULAR US WHI FOLLICULAR US WHI Anc Imaging Routine Female infertility Expected: 12/13/2023, Expires: 12/12/2024 [facility] Work Phone: Comment on above: Expected: 12/13/2023, Expires: 5 Start: 11-28-2023 Covid-19 Vaccine ( season) Covid-19 Vaccine ( season) [facility] Start: 11-28-2023 Covid-19 Vaccine ( season) Covid-19 Vaccine ( season) [facility] Start: 09-01-2024 Influenza vaccination [facility] Start: 11-22-2023 End: 11-22-2023 Nursing evaluation of patient and report 11/22/2023 7:15 AM EDT Nurse Visit [facility] [address] [place] [address] Greta, Nurse Gayathri [facility] [address] [place] [address] Follicular scan [facility] Comment on above: Follicular scan Start: 11-18-2023 End: 11-18-2023 Patient encounter procedure 11/18/2023 6:00 PM EDT Office Visit [facility] [address] [place] [address] midcycle-benefit check [facility] Comment on above: midcycle-benefit check Start: 11-15-2023 End: 11-14-2024 FOLLICULAR US WHI FOLLICULAR US WHI Anc Imaging Routine Female infertility Expected: 11/15/2023, Expires: 11/14/2024 [facility] Work Phone: Comment on above: Expected: 11/15/2023, Expires: Start: 11-04-2023 End: 11-04-2023 Patient encounter procedure Endocrinology Comment on above: MED WT MGMT Start: 10-22-2023 End: 10-22-2023 Nursing evaluation of patient and report 10/22/2023 7:00 AM EDT Nurse Visit [facility] [address] [place] [address] Greta, Nurse Gayathri [facility] [address] [place] [address] midcycle [facility] Comment on above: midcycle Start: 09-19-2023 End: 12-19-2023 Progesterone [Mass/volume] in Serum or Plasma PROGESTERONE Lab Routine Irregular menstrual cycle Expected: 09/19/2023 (Approximate), Expires: 12/19/2023 [facility] Work Phone: Comment on above: Expected: 09/19/2023 (Approximate), Expi res: 12/19/2023 Start: 09-10-2023 End: 09-10-2023 Patient encounter procedure 09/10/2023 3:00 PM EDT [facility] [address] [facility] [place] [address] Ortega Morrissey APRN.CNM [address] [place] [address] IUI teach [facility] Comment on above: IUI teach Start: 09-10-2023 End: 12-10-2023 Chlamydia trachomatis+Neisseria gonorrhoeae DNA [Presence] in Unspecified specimen by JANESSA with probe detection GONORRHEA/CHLAMYDIA NAAT Lab Routine Screen for sexually transmitted diseases Expected: 09/10/2023 (Approximate), Expires: 12/10/2023 [facility] Comment on above: Expected: 09/10/2023 (Approximate), Expi res: 12/10/2023 Start: 09-10-2023 End: 12-10-2023 Choriogonadotropin.be ta subunit [Units/volume] in Serum or Plasma HCG QUANTITATIVE Lab Routine Secondary amenorrhea Expected: 09/10/2023, Expires: 12/10/2023 [facility] Comment on above: Expected: 09/10/2023, Expires: 4 Start: 09-10-2023 End: 09-09-2024 FOLLICULAR US WHI FOLLICULAR US WHI Anc Imaging Routine Female infertility Expected: 09/10/2023, Expires: 09/09/2024 [facility] Comment on above: Expected: 09/10/2023, Expires: 5 Start: 09-10-2023 End: 12-10-2023 Hepatitis B virus surface Ag [Presence] in Serum HEPATITIS B SURFACE ANTIGEN Lab Routine Screen for sexually transmitted diseases Expected: 09/10/2023, Expires: 12/10/2023 [facility] Comment on above: Expected: 09/10/2023, Expires: 4 Start: 09-10-2023 End: 12-10-2023 Hepatitis C virus Ab [Presence] in Serum HEPATITIS C ANTIBODY IA WITH CONFIRMATION Lab Routine Screen for sexually transmitted diseases Expected: 09/10/2023, Expires: 12/10/2023 [facility] Comment on above: Expected: 09/10/2023, Expires: 4 Start: 09-10-2023 End: 12-10-2023 HIV 1+2 Ab [Presence] in Serum or Plasma by Immunoassay HIV 1/2 COMBO WITH REFLEX TO DIFFERENTIATION Lab Routine Screen for sexually transmitted diseases Expected: 09/10/2023, Expires: 12/10/2023 [facility] Comment on above: Expected: 09/10/2023, Expires: Start: 09-10-2023 End: 12-10-2023 Progesterone [Mass/volume] in Serum or Plasma PROGESTERONE Lab Routine Secondary amenorrhea Expected: 09/10/2023, Expires: 12/10/2023 [facility] Work Phone: Comment on above: Expected: 09/10/2023, Expires: Start: 09-10-2023 End: 12-10-2023 SYPHILIS TOTAL W/REFLEX SYPHILIS TOTAL W/REFLEX Lab Routine Screen for sexually transmitted diseases Expected: 09/10/2023, Expires: 12/10/2023 [facility] Comment on above: Expected: 09/10/2023, Expires: Start: 09-02-2023 End: 12-02-2023 Choriogonadotropin.be ta subunit [Units/volume] in Serum or Plasma [facility] Comment on above: Expected: 09/02/2023, Expires: Start: 09-02-2023 End: 12-02-2023 Progesterone [Mass/volume] in Serum or Plasma [facility] Work Phone: Comment on above: Expected: 09/02/2023, Expires: Start: 08-19-2023 End: 08-19-2023 Follow-up encounter 08/19/2023 10:30 AM EDT 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 Start: 06-16-2023 End: 09-15-2023 METANEPHRINES, FREE PLASMA METANEPHRINES, FREE PLASMA Lab Routine Monoallelic mutation of SDHA gene Expected: 06/16/2023, Expires: 09/15/2023 [facility] Work Phone: Comment on above: Expected: 06/16/2023, Expires: Start: 06-01-2023 Varicella vaccination Varicella Vaccines (2 of 2 - 2-dose childhood series) [facility] Start: 05-17-2023 End: 08-16-2023 MISC SEND OUT TST 1 MISC SEND OUT TST 1 Lab Routine Family history of cancer Family history of gene mutation Expected: 05/17/2023, Expires: 08/16/2023 [facility] Work Phone: Comment on above: Expected: 05/17/2023, Expires: 4 Start: 04-17-2023 End: 07-17-2023 Progesterone [Mass/volume] in Serum or Plasma PROGESTERONE BLD Lab Routine PCOS (polycystic ovarian syndrome) Expected: 04/17/2023 (Approximate), Expires: 07/17/2023 [facility] Work Phone: Comment on above: Expected: 04/17/2023 (Approximate), Expi res: 07/17/2023 Start: 03-29-2023 Behavioral Health Screening Behavioral Health Screening [facility] Start: 03-29-2023 Depression Assessment Depression Assessment [facility] Start: 02-04-2023 End: 05-06-2023 Progesterone [Mass/volume] in Serum or Plasma PROGESTERONE BLD Lab Routine Encounter for fertility testing Expected: 02/04/2023, Expires: 05/06/2023 [facility] Work Phone: Comment on above: Expected: 02/04/2023, Expires: 4 Start: 11-27-2022 Covid-19 Vaccine () Covid-19 Vaccine () [facility] Start: 11-27-2022 Influenza vaccination Influenza Vaccine (#1) [facility] Start: 03-29-2022 Depression Assessment Depression Assessment [facility] Start: 2016 Pap Testing Pap Testing [facility] Start: 2016 Screening for malignant neoplasm of cervix [facility] Start: 2014 Hepatitis A Vaccines (1 of 2 - Risk 2-dose series) Hepatitis A Vaccines (1 of 2 - Risk 2-dose series) [facility] Start: 2014 Urine microalbumin profile DTaP,Tdap,Td Vaccine (1 - Tdap) [facility] Start: 2013 Adult BMI Follow Up Plan Adult BMI Follow Up Plan [facility] Start: 2013 Adult BMI Screening Adult BMI Screening [facility] Start: 2013 Anxiety Screening Anxiety Screening [facility] Start: 2013 Depression Screening Depression Screening [facility] Start: 2013 Hepatitis C Screening Hepatitis C Screening [facility] Start: 2013 Hepatitis C screening Hepatitis C Screening [facility] Start: 2013 HIV Screening HIV Screening [facility] Start: 2013 HIV screening HIV Screening [facility] Start: 2007 Depression Screening Depression Screening [facility] Start: 2007 Tobacco Screening Tobacco Screening [facility] Start: 1995 Covid-19 Vaccine (#1) Covid-19 Vaccine (#1) [facility] Start: 1995 Hepatitis B Vaccine (1 of 3 - 3-dose series) Hepatitis B Vaccine (1 of 3 - 3-dose series) [facility] Start: 1995 HIV screening HIV Screening [facility] Start: 1995 Lipid panel Lipid Panel [facility] Start: 1995 Yearly Adult Physical Yearly Adult Physical [facility] Bacteria identified in Urine by Culture Urine culture Microbiology Routine Missed menses Ordered: 04/21/2024 [facility] Comment on above: Ordered: 04/21/2024 Bacteria identified in Urine by Culture Urine culture Microbiology Routine Urinary tract infection without hematuria, site unspecified Ordered: 05/15/2024 [facility] Work Phone: Comment on above: Ordered: 05/15/2024 End: 05-17-2024 Cath & saline/contrast sonohyster/hysterosal pi XR HYSTEROSALPINGOGRAM Radiology Routine Fertility testing 1 Occurrences starting 04/18/2023 until 05/17/2024 [facility] Work Phone: Comment on above: 1 Occurrences starting 04/18/2023 until 05/17/2024 End: 09-12-2025 CBC panel - Blood by Automated count CBC without diff Lab Routine Insulin controlled gestational diabetes mellitus (GDM) in third trimester Abnormal liver enzymes Elevated blood pressure affecting , antepartum 1 Occurrences starting 09/12/2024 until 09/12/2025 [employer] Comment on above: 1 Occurrences starting 09/12/2024 until 09/12/2025 CBC W Auto Differential panel - Blood CBC and differential Lab Routine Missed menses , unspecified gestational age Ordered: 04/21/2024 [facility] Comment on above: Ordered: 04/21/2024 End: 03-13-2025 Choriogonadotropin.be ta subunit [Units/volume] in Serum or Plasma HCG QUANTITATIVE Lab Routine examination or test, unconfirmed Daily for 2 Occurrences starting 03/13/2024 until 03/13/2025 [facility] Work Phone: Comment on above: Daily for 2 Occurrences starting until 03/13/2025 Choriogonadotropin.b e ta subunit [Units/volume] in Serum or Plasma HCG QUANTITATIVE Lab Routine examination or test, unconfirmed 03/13/2024 3:37 PM [facility] End: 09-12-2025 Comprehensive metabolic 2000 panel - Serum or Plasma Comprehensive metabolic panel Lab Routine Abnormal liver enzymes Abnormal genetic test Gestational diabetes requiring insulin Elevated blood pressure affecting , antepartum 1 Occurrences starting 09/12/2024 until 09/12/2025 [employer] Work Phone: Comment on above: 1 Occurrences starting 09/12/2024 until 09/12/2025 End: 07-15-2024 CT Abdomen W contrast IV CT ABDOMEN W IVCON Radiology Routine Intra-abdominal and pelvic swelling, mass and lump, unspecified site 1 Occurrences starting 06/16/2023 until 07/15/2024 [facility] Work Phone: Comment on above: 1 Occurrences starting 06/16/2023 until 07/15/2024 End: 07-15-2024 CT Chest W contrast IV CT CHEST W IVCON Radiology Routine Localized enlarged lymph nodes 1 Occurrences starting 06/16/2023 until 07/15/2024 [facility] Work Phone: Comment on above: 1 Occurrences starting 06/16/2023 until 07/15/2024 End: 07-15-2024 CT Neck W contrast IV CT NECK SOFT TISSUE W IVCON Radiology Routine Localized enlarged lymph nodes 1 Occurrences starting 06/16/2023 until 07/15/2024 [facility] Work Phone: Comment on above: 1 Occurrences starting 06/16/2023 until 07/15/2024 Hemoglobin A1c/Hemoglobin.total in Blood Hemoglobin A1c Lab Routine Missed menses , unspecified gestational age Ordered: 04/21/2024 [facility] Comment on above: Ordered: 04/21/2024 Hepatitis B virus surface Ag [Presence] in Serum or Plasma by Immunoassay Hepatitis B surface antigen Lab Routine Missed menses , unspecified gestational age Ordered: 04/21/2024 [facility] Comment on above: Ordered: 04/21/2024 Hepatitis C virus Ab [Presence] in Serum or Plasma by Immunoassay Hepatitis C antibody Lab Routine Missed menses , unspecified gestational age Ordered: 04/21/2024 [facility] Comment on above: Ordered: 04/21/2024 HIV-1/HIV-2 antigen/antibody combination immunoassay HIV-1 and HIV-2 antibodies Lab Routine Missed menses , unspecified gestational age Ordered: 04/21/2024 [facility] Comment on above: Ordered: 04/21/2024 IGP,rfxAptima HPV all,16/18,45 IGP,rfxAptima HPV all,16/18,45 Pathology and Cytology Routine Screening for malignant neoplasm of cervix Ordered: 02/15/2024 [facility] [employer] Work Phone: Comment on above: Ordered: 02/15/2024 Reagin Ab [Presence] in Serum by RPR RPR Lab Routine Missed menses , unspecified gestational age Ordered: 04/21/2024 [facility] Comment on above: Ordered: 04/21/2024 RF Uterus and Fallopian tubes Views W contrast IU XR HYSTEROSALPINGOGRAM Radiology Routine Fertility testing 07/29/2023 2:03 PM EDT [facility] Work Phone: Rubella antibody, IgG Rubella an tibody, IgG Lab Routine Missed menses , unspecified gestational age Ordered: 04/21/2024 [facility] Comment on above: Ordered: 04/21/2024 End: 09-12-2025 Urine protein creatinine ratio Urine protein creatinine ratio Lab Routine Gestational diabetes requiring insulin Elevated blood pressure affecting , antepartum 1 Occurrences starting 09/12/2024 until 09/12/2025 [facility] Comment on above: 1 Occurrences starting 09/12/2024 until 09/12/2025 End: 03-01-2025 US for US OB follow up transabdominal approach Imaging Routine Gestational diabetes mellitus (GDM), antepartum, gestational diabetes method of control unspecified [id number] for 8 Occurrences starting 08/30/2024 until 03/01/2025 [facility] Work Phone: Comment on above: [id number] for 8 Occurrences starting 08/30 until 03/01/2025 US Pelvis transvaginal US OB transvaginal Imaging Routine Missed menses 04/21/2024 8:47 AM EST [facility] Immunizations Immunization Date Immunization Notes Care Provider Trina oconnell 05-04-2023 measles, mumps and rubella virus vaccine Robles Goldsmith DO Work Phone: [facility] 06-26-2022 tetanus toxoid, reduced diphtheria toxoid, and acellular pertussis vaccine, adsorbed Josefina Eliza Other [employer] Other 08-12-2015 Human Papillomavirus 9-valent vaccine Robles Goldsmith DO Work Phone: [facility] 04-10-2015 Human Papillomavirus 9-valent vaccine Robles Goldsmith DO Work Phone: [facility] 01-30-2015 influenza, seasonal, injectable, preservative free Robles Goldsmith DO Work Phone: [facility] 01-30-2015 influenza virus vaccine, unspecified formulation Fede Hairston MD Work Phone: [facility] 12-05-2014 Human Papillomavirus 9-valent vaccine Robles Pyleer DO Work Phone: [facility] 02-13-2009 novel [id number], preservative-free, injectable Robles Pyleer DO Work Phone: [facility] 08-12-2006 meningococcal polysaccharide (groups A, C, Y and W-135) diphtheria toxoid conjugate vaccine (MCV4P) Robles Rupal DO Work Phone: [facility] 08-10-2000 diphtheria, tetanus toxoids and acellular pertussis vaccine, unspecified formulation Robles Rupal DO Work Phone: [facility] 08-10-2000 measles, mumps and rubella virus vaccine Robles Goldsmith DO Work Phone: [facility] 08-10-2000 poliovirus vaccine, inactivated Robles Rupal DO Work Phone: [facility] 08-04-1996 diphtheria, tetanus toxoids and acellular pertussis vaccine, unspecified formulation Robles Rupal DO Work Phone: [facility] 08-04-1996 haemophilus influenzae type b vaccine, conjugate unspecified formulation Robles Rupal DO Work Phone: [facility] 08-04-1996 varicella virus vaccine Robles Goldsmith DO Work Phone: [facility] 04-21-1996 measles, mumps and rubella virus vaccine Robles Rupal DO Work Phone: [facility] 03-17-1996 diphtheria, tetanus toxoids and acellular pertussis vaccine, unspecified formulation Robles Goldsmith DO Work Phone: [facility] 03-17-1996 haemophilus influenzae type b vaccine, conjugate unspecified formulation Robles Goldsmith DO Work Phone: [facility] 03-17-1996 hepatitis B vaccine, pediatric or pediatric/adolescent dosage Robles Goldsmith DO Work Phone: [facility] 03-17-1996 trivalent poliovirus vaccine, live, oral Robles Pyleer DO Work Phone: [facility] 1995 diphtheria, tetanus toxoids and pertussis vaccine Robles Rupal DO Work Phone: [facility] 1995 haemophilus influenzae type b vaccine, conjugate unspecified formulation Robles Rupal DO Work Phone: [facility] 1995 hepatitis B vaccine, pediatric or pediatric/adolescent dosage Robles Rupal DO Work Phone: [facility] 1995 trivalent poliovirus vaccine, live, oral Robles Goldsmith DO Work Phone: [facility] 1995 diphtheria, tetanus toxoids and pertussis vaccine Robles Rupal DO Work Phone: [facility] 1995 haemophilus influenzae type b vaccine, conjugate unspecified formulation Robles Pyleer DO Work Phone: [facility] 1995 hepatitis B vaccine, pediatric or pediatric/adolescent dosage Robles Pyleer DO Work Phone: [facility] 1995 trivalent poliovirus vaccine, live, oral Robles Goldsmith DO Work Phone: [facility] Payers Date Payer Category Payer [employer] Care - POS [id number] 2024 [employer] [facility] Care - O [employer] [id number] 2024 Private Health Insurance [id number] 2024 Unknown [id number] 2021 Private Health Insurance [id number] 2021 Managed Care (Private) [facility] [id number] 2021 Managed Care HMO (unspecified) [id number] 2021 Private Health Insurance [id number] 1995 Unknown [id number] 2.16.840.1.418827.3.579.2 .593 1995 Unknown [id number] 2.16.840.1.298258.3.579.2 .1243 1995 Unknown [id number] 2.16.840.1.083613.3.579.2 .1244 1995 Unknown [id number] 2.16.840.1.639209.3.579.2 .1286 1995 Unknown [id number] 2.16.840.1.218695.3.579.2 .1286 1995 Unknown [id number] 2.16.840.1.610206.3.579.2 .1286 1995 Unknown [id number] 2.16.840.1.202795.3.579.2 .9 1995 Unknown [id number] 2.16.840.1.878322.3.579.2 .1258 1995 Unknown [id number] 2.16.840.1.609093.3.579.2 .1258 1995 Unknown [id number] 2.16.840.1.546110.3.579.2 .1258 1995 Unknown [id number] 2.16.840.1.838324.3.579.2 .1258 1995 Unknown [id number] 2.16.840.1.662806.3.579.2 .1258 1995 Unknown [id number] 2.16.840.1.264887.3.579.2 .1258 1995 Unknown [id number] 2.16.840.1.404555.3.579.2 .1258 1995 Unknown [id number] 2.16.840.1.052472.3.579.2 .1258 1995 Unknown [id number] 2.16.840.1.257998.3.579.2 .1258 1995 Unknown [id number] 2.16.840.1.133382.3.579.2 .1258 1995 Unknown [id number] 2.16.840.1.533377.3.579.2 .1258 1995 Unknown [id number] 2.16.840.1.547519.3.579.2 .1258 1995 Unknown [id number] 2.16.840.1.066334.3.579.2 .1258 1995 Unknown [id number] 2.16.840.1.251881.3.579.2 .1258 1995 Unknown [id number] 2.16.840.1.243851.3.579.2 .1258 1995 Unknown [id number] 2.16.840.1.759433.3.579.2 .1259 1995 Unknown [id number] 2.16.840.1.372521.3.579.2 .1259 1995 Unknown [id number] 2.16.840.1.986665.3.579.2 .9 1995 Unknown [id number] 2.16.840.1.343567.3.579.2 .1259 1959 Self-pay Unknown MMO [id number] Unknown HCAP/HFA/FAP Active [id number] Unknown [id number] 2.16.840.1.958027.3.579.2 .531 Social History Date Type Detail Facility Unknown if ever smoked [employer] Other Start: 01-04-2023 End: 07-18-2024 Sex Assigned At [facility] [place] Other Start: 10-05-2022 End: 12-29-2022 Tobacco smoking status NHIS Never smoked tobacco [facility] Start: 10-05-2022 End: 12-29-2022 Tobacco use and exposure Smokeless tobacco non-user [facility] Start: 01-04-2023 End: 09-05-2024 Alcohol intake Current drinker of alcohol (finding) [facility] Start: 01-04-2023 End: 07-18-2024 History of Social function [facility] Start: 12-29-2022 Alcohol Comment rare, socially [facility] Start: 1995 Sex Assigned At Female [facility] Start: 01-04-2023 Gender identity Identifies as female gender (finding) [facility] National Score (1-100), lower number is lower risk 64 [facility] Start: 02-15-2024 End: 09-12-2024 Alcoholic beverage intake Ex-drinker (finding) [facility] How often to you hav e a drink containing alcohol? Never [facility] Start: 07-13-2023 Alcohol Comment Caffeine intak e: 1 cup per day coffee [facility] Start: 1995 Sex assigned at Not [facility] file [facility] Start: 02-27-2024 End: 03-08-2024 Exposure to SARS-CoV-2 (event) Not sure [facility] Start: 03-27-2024 Alcohol Comment Caffeine intak e:less than 100 mg daily [facility] Start: 02-27-2024 [facility] Start: 05-23-2024 End: 07-18-2024 Alcoholic beverage intake Lifetime non-drinker (finding) [facility] Start: 08-25-2024 End: 08-29-2024 Sex Female (finding) [facility] Medical Equipment Procedure Code Equipment Code Equipment Origin al Text Equipment Identifier Dates To be used to in ject HCG trigger [id number] Start: 02-17-2024 End: 03-17-2024 To be used to mi x, draw up and inject HCG trigger [id number] Start: 02-17-2024 End: 03-17-2024 1 strip by In Vi tro route Daily Use in the morning prior to breakfast, 1 hour after each meal for a total of 4times daily. [id number] Start: 08-25-2024 End: 09-24-2024 1 each by In Vit ro route Daily Use to check FSBS four times daily [id number] Start: 08-25-2024 End: 09-24-2024 Goals Date Patient Goal Desired Activity /State Personal health goal Functional Status Date Assessment Result Facility 07-18-2024 Patient Health Quest ionnaire 2 item (PHQ-2) [Reported] [facility] Clinical Notes 03-29-2020 to 10-02-2024 Selina Denson NP - 10/02/2024 11:00 AM Trupti Rivera LPN - 09/25/2024 1:00 PM CARLOS Hercules - 09/20/2024 11:00 AM Petar Denson NP - 09/13/2024 11:30 AM EDT Note Date & Type Note Facility 10-02-2024 History of Present illness Narrative Reason for [...] cream Topical, Daily Blood Glucose Monitoring Suppl (Vontu Glucometer) w/Device kit 1 kit, Does not apply, Daily, Use four times daily to check FSBS. In the morning prior to breakfast & 1 hour after each meal for a total of 4times daily. cholecalciferol (Vitamin D-3) 50 MCG (1999) tablet 2 tablets, Daily Lantus SoloStar 100 [...] nursing note reviewed. Exam conducted with a logging crew foreman present. Vitals: Estimated body mass index is 40.1 kg/m as calculated from the following: Height as of 07/18/24: 5' 3 . Weight as of this encounter: 226 lb 6.4 oz. BP: 136/84 Patient's last menstrual period was 02/13/2024 (approximate). ASSESSMENT & PLAN ICD-10-CM 1. 33 weeks gestation of ([facility]) Z3A.33 POCT urinalysis dipstick manually resulted 2. Encounter for routine care ([facility]) Z34.90 POCT urinalysis dipstick manually resulted 3. Third trimester ([facility]) Z34.93 POCT urinalysis dipstick manually resulted Return [...] Lantus and glucose is being transmitted to [facility]. Continue NST/BPP. Recent epistaxis and discontinued Valtrex and changed to acyclovir. Documented by Selina Denson NP on behalf of: Saravanan Ahumada DO documented in this encounter [facility] 09-25-2024 History of Present illness Narrative Reason [...] MCG (1999 [place]) tablet 2 tablets, Daily Lantus SoloStar [...] nursing note reviewed. Exam conducted with a logging crew foreman present. Vitals: Estimated body mass index is 39.95 kg/m as calculated from the following: Height as of 07/18/24: 5' 3 . Weight as of this encounter: 225 lb 8 oz. BP: 130/80 Patient's last menstrual period was 02/13/2024 (approximate). ASSESSMENT & PLAN ICD-10-CM 1. Third trimester ([facility]) Z34.93 POCT urinalysis dipstick manually resulted 2. Insulin controlled gestational diabetes mellitus (GDM) during , antepartum ([facility]) O24.414 3. 32 weeks gestation of ([facility]) Z3A.32 Return OB: Patient presents today [...] Saravanan Ahumada DO documented in this encounter [facility] 09-20-2024 History of Present illness Narrative REASON FOR OFFICE VISIT: Video Visit via Real-time Synchronous Audiovisual Provider Location: [facility] AT [address] [id number] Patient Location: Patient's home Video Visit Consent [...] that there are some limitations compared to kczq-gg-hvnk evaluations. The patient consented to the presence [...] pain. +FM. She is being [facility]2. States she is following [...] taking: Reported on 09/12/2024), Disp: , Rfl: [id number] acid ( 19) 29 mg iron- 1 [...] TOTALT4 , THYROIDAB No results found for: [id number] No results found for: CREATININE , BUN [...] values to us weekly by e-mail to: [email or web address] or by fax to: [phone] TIME OF CONSULTATION: 20 minutes with the patient, >50% in discussion and counseling, coordination of care which was dcxz-ke-keon, review of records and communication back to referring provider. CARLOS Ford 09/20/24 1121 documented in this encounter [facility] 09-13-2024 History of Present illness Narrative Reason [...] ASSESSMENT & PLAN ICD-10-CM 1. Third trimester ([facility]) Z34.93 POCT urinalysis dipstick manually resulted 2. 31 weeks gestation of ([facility]) Z3A.31 Return OB: Patient presents today [...] pm and glucose will be monitored per [facility] Documented by Selina Denson NP on behalf of: Saravanan Ahumada DO documented in this encounter [facility] 09-12-2024 History of Present illness Narrative Called and spoke with patient - she had the recommended pre-e labs done at [facility]. Patient had mild range BP then [...] triage near her. She will go to [facility]. I called and spoke with RN in triage - informed that patient had CMP and CBC already drawn, but that urine sample was not taken. Recommend BP monitoring and evaluation of pre-e labs. Contact stated they would inform Dr Ahumada upon arrival of patient to hospital. Ruthann Poe PA-C 09/12/24 [id number] documented in this encounter [facility] 09-12-2024 History of Present illness Narrative Maternal- [...] mouth in the morning., Disp: , Rfl: [id number]-miwg-bzuhb acid ( 19) 29 mg iron- 1 [...] more likely to fail compared to insulin. assistant terminal manager data on children whose mothers took oral [...] cell free dna - Anatomy survey with MFM - please contact us if you would ;jammie a survey done with us - growth ultrasounds every 4 weeks after 28 weeks - Recommend the following for testing, which can be done with primary OB: - NST and RAKESH once weekly at 32 weeks - NST twice weekly and RAKESH once weekly at 36 weeks - Delivery recommendations : - Recommend delivery at [id number] - Use 1/2 dose of insulin the [...] by e-mail to: or by fax to: [phone] Ruthann Poe PA-C Maternal- Medicine Office phone: [phone] Ruthann Poe PA-C 09/12/24 1211 Headache/epigastric pain/blurry vision/swelling? Gastric [...] questions or concerns. documented in this encounter [facility] 09-11-2024 Instructions Mirta Gallagher MD - [...] pending, and I will contact you via Eventdoo once the results are available. - Your [...] Please continue to follow up with your GOLD BLOWER and the diabetes care team for management. [...] your urine based on recent tests. Your GOLD BLOWER will likely repeat a urine test at your next visit in 4 weeks. - Your hemoglobin, hematocrit, and red blood cell count were low on recent testing. Please follow up with your GOLD BLOWER for further evaluation and management. Follow-Up Plan: - Please continue to follow up with your GOLD BLOWER for routine care and gestational diabetes management. - Once your plasma metanephrines results are available, I will contact you via Eventdoo. - After your delivery, please message me to schedule imaging and blood work for follow-up on your SDHA mutation. If your blood work is normal, imaging can be deferred until 2025 or 2026. Wishing you a safe and healthy ! documented in this encounter [facility] 09-11-2024 Note HNO ID: [id number] Author: MIRTA GALLAGHER MD Service: ? Author Type: Physician Type: Progress Notes Filed: 09/11/2024 09:23 Note Text: DATE: 09/11/2024 VIRTUAL VISIT PROGRESS NOTE This is a virtual visit using Eventdoo Zoom Video Visit. It required patient-provider interaction for the medical decision making as documented below. I have communicated my name and active licensure. The patient's identity and physical location were verified at the time of this visit. Either the patient or their legal sales representative girls' apparel has been informed of the risks and [...] She is under the care of her GOLD BLOWER in [place] for GDM management. Despite dietary modifications, she [...] Memory (more content not included)... [facility] 09-11-2024 History of Present illness Narrative DATE: 09/11/2024 VIRTUAL VISIT PROGRESS NOTE This is a virtual visit using iDentiMobom Video Visit. It required patient-provider interaction for the medical decision making as documented below. I have communicated my name and active licensure. The patient's identity and physical location were verified at the time of this visit. Either the patient or their legal sales representative girls' apparel has been informed of the risks and [...] She is under the care of her GOLD BLOWER in [place] for GDM management. Despite dietary modifications, she [...] under the care of a specialist in [place] and is no longer taking Metformin since [...] the specialist weekly. - Follow up with GOLD BLOWER for regular care and monitoring of GDM. TSH was 2.69 prior to conception but TPO Ab were negative. Mirta Gallagher MD, MPH Endocrinology documented in this encounter [facility] 09-05-2024 Miscellaneous Notes Called pt to discuss [...] and not metformin. documented in this encounter [facility] 09-05-2024 Telephone encounter Note Called pt [...] will probably do insulin and not metformin. [facility] 09-05-2024 Note HNO ID: [id number] Author: МАРИЯ LABOY MD Service: ? Author [...] DATE: September 19, 2024 TIME: 3:28 PM [facility] 09-05-2024 History of Present illness Narrative History [...] TIME: 3:28 PM documented in this encounter [facility] 08-31-2024 Group counseling note Patient: Lissa Rivas [...] day food log and blood glucoses to every Wednesday night/Wednesday morning. Please refer to health habits for other goals. Breakfast 10 AM 15-25 grams of CHO, Lunch 2 PM 45 grams of CHO, Snack 4:30 PM 15-30 grams of CHO, Dinner 7 PM 45 grams of CHO, HS Snack 8:30 PM 15-30 grams of CHO. Face to face time was 82 minutes. [facility] Work Phone: 08-31-2024 Miscellaneous Notes Patient: Lissa [...] day food log and blood glucoses to every Wednesday night/Wednesday morning. Please refer to health habits for other goals. Breakfast 10 AM 15-25 grams of CHO, Lunch 2 PM 45 grams of CHO, Snack 4:30 PM 15-30 grams of CHO, Dinner 7 PM 45 grams of CHO, HS Snack 8:30 PM 15-30 grams of CHO. Face to face time was 82 minutes. documented in this encounter [facility] 08-30-2024 History of Present illness Narrative Reason [...] cream Topical, Daily Blood Glucose Monitoring Suppl (DXiant Glucometer) w/Device kit 1 kit, Does not [...] nursing note reviewed. Exam conducted with a logging crew foreman present. Vitals: Estimated body mass index is [...] Saravanan Ahumada DO documented in this encounter [facility] 08-16-2024 History of Present illness Narrative [...] nursing note reviewed. Exam conducted with a logging crew foreman present. Vitals: Estimated body mass index is [...] of: FLACA Kovacs documented in this encounter [facility] 07-18-2024 History of Present illness Narrative Images [...] the care of an infertility clinic at [facility], where fertility treatments were conducted for approximately one year before achieving natural conception. 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 Metformin, previously prescribed for polycystic ovary syndrome [...] since 04/2024. - No previous EKG performed; SeamlessDocs monitor will be ordered -order echo. - If heart rate exceeds 120 beats per minute for an extended period, further investigation will be warranted. Patient was seen and examined with Jaime Davies CNP. History was confirmed and verified. Kelly elements of the exam were also completed. Assessment and plan were reviewed and addended as needed. Agree with documentation above. documented in this encounter [facility] 07-17-2024 History of Present illness Narrative Reason [...] Date Anxiety Asthma LORA (generalized anxiety disorder) ([facility]) GERD (gastroesophageal reflux disease) Herpes simplex PCOS [...] nursing note reviewed. Exam conducted with a logging crew foreman present. Vitals: Estimated body mass index is [...] during travel. Patient was prescribed medication from charm filter operator helper and provider will reach out to patient [...] leaving that lotion that was prescribed by Geophysical Support Specialist is safe to use, but not in large doses. PVU documented in this encounter [facility] 05-23-2024 History of Present illness Narrative Images from the original note were not included. Subjective Patient ID: Lissa Rivas is a 29 y.o. 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 She has tried easg-bbc-ggczoro antifungal treatments without relief. Additionally she has [...] Laterality Date EYE SURGERY 03/2020 MICHAEL- Sid Family History Family History Problem Relation Name Age of Onset Hypertension Mother Estee Other (SDHA) Mother Estee Asthma Father Мария Diabetes Father Мария Heart disease Father Мария Stroke Father Мария Kidney disease Father Мария Atrial fibrillation Father Мария COPD Father Мария Hypertension Father Мария Hyperlipidemia Father Маряи Atrial fibrillation Sister Breast cancer Mother's Sister [...] today utilizing a nail Nipper and bur billet grinder without incident. She will call us [...] corrected. Thank you for your understanding. Andrew S Rusher, DPM documented in this encounter [facility] 05-22-2024 History of Present illness Narrative Reason [...] nursing note reviewed. Exam conducted with a logging crew foreman present. Vitals: Estimated body mass index is [...] or undercooked meat, and stay away from [facility]. Patient has been consulted regarding any [...] Saravanan Ahumada DO documented in this encounter [facility] 05-15-2024 History of Present illness Narrative Reason [...] nursing note reviewed. Exam conducted with a logging crew foreman present. Vitals: Estimated body mass index is [...] Rosemary Hooper MA documented in this encounter [facility] 04-21-2024 History of Present illness Narrative Reason [...] Laterality Date EYE SURGERY 03/2020 APRIL Lau No Known Allergies Vitals: Estimated body mass [...] or undercooked meat, and stay away from [facility]. Patient has also been advised to [...] Rosemary Hooper MA documented in this encounter [facility] 2024 Note HNO ID: [id number] Author: ORTEGA MORRISSEY APRN.WHITEWASHER Service: ? Author Type: Nurse Practitioner Type: [...] Plan Move on to OB Ortega Morrissey APRN.WHITEWASHER 2024 4:34 PM [facility] 2024 History of Present illness Narrative [...] 2024 4:34 PM documented in this encounter [facility] 03-27-2024 History of Present illness Narrative Name: [...] drawn today. Appointments scheduled for OBUS in [place] office on 04/12 and with N on 05/01. 03/27/2024 3:01 PM documented in this encounter [facility] 03-20-2024 Progress note Formatting of t his [...] Laparoscopy OPK (Ovulation Predictor Kit) [facility] [place] [facility] 10.91 High 01/04/2023 Saline Ultrasound Semen [...] visit. Either the patient or their legal sales representative girls' apparel has been informed of the risks and benefits of -- and alternatives to -- treatment through a remote evaluation and consents to proceed with the evaluation remotely. I spent a total of 30 minutes on the date of the service which included preparing to see the patient, woiu-ny-rbig patient care, counseling and educating the patient/family/caregiver, ordering medications, tests, or procedures, communicating results to the patient/family/caregiver, and care coordination (not separately reported). MD Kim Branch MD [facility] 03-20-2024 Consult note Formatting of th is [...] appointment with cancer genetic team soon. 5. [employer] - test neg for all mutations. Initial [...] Laparoscopy OPK (Ovulation Predictor Kit) [facility] [place] [facility] 10.91 High 01/04/2023 Saline Ultrasound Semen [...] visit. Either the patient or their legal sales representative girls' apparel has been informed of the risks and benefits of -- and alternatives to -- treatment through a remote evaluation and consents to proceed with the evaluation remotely. I spent a total of 30 minutes on the date of the service which included preparing to see the patient, ovqb-xo-kwga patient care, counseling and educating the patient/family/caregiver, ordering medications, tests, or procedures, communicating results to the patient/family/caregiver, and care coordination (not separately reported). MD Kim Branch MD documented in this encounter [facility] 03-17-2024 Note HNO ID: [id number] Author: ORTEGA MORRISSEY APRN.JORDAN Service: ? Author Type: Nurse Practitioner Type: Progress Notes Filed: 03/17/2024 14:22 Note Text: [facility] ENDOCRINOLOGY [facility] INFERTILITY New SERVICE DATE: 03/17/2024 SERVICE TIME: 1:56 PM NAME: Lissa Rivas VIRTUAL VISIT PROGRESS NOTE This is a virtual visit. It required patient-provider interaction for the medical decision making as documented below. Patient name and birthday verified: Yes Location of patient: [place] Persons Present: patient I have communicated my name and active licensure. The patient's identity and physical location were verified at the time of this visit. Either the patient or their legal sales representative girls' apparel has been informed of the risks and [...] which included preparing to see the patient, mfkj-yw-bujw patient care, completing clinical documentation, obtaining and/or [...] schedule the patient for the following- Location: [facility] Provider: Nurse Visit type: OB scan Reason for visit/appointment notes: OB scan Date: 04/03 Time (requested): 1110 If slot is full, please schedule the closest open slot. Call to patient needed: no [facility] 03-17-2024 History of Present illness Narrative Images from the original note were not included. [facility]ERT[facility] New SERVICE DATE: 03/17/2024 SERVICE TIME: 1:56 PM NAME: Lissa Rivas VIRTUAL VISIT PROGRESS NOTE This is a virtual visit. It required patient-provider interaction for the medical decision making as documented below. Patient name and birthday verified: Yes Location of patient: [place] Persons Present: patient I have communicated my name and active licensure. The patient's identity and physical location were verified at the time of this visit. Either the patient or their legal sales representative girls' apparel has been informed of the risks and [...] OB: Scheduled with local OB Ortega Morrissey APRN.WHITEWASHER March 17, 2024 1:56 PM I spent a total of 20 minutes on the date of the service which included preparing to see the patient, icds-lz-oqpp patient care, completing clinical documentation, obtaining and/or [...] schedule the patient for the following- Location: [facility] Provider: Nurse Visit type: OB scan Reason for visit/appointment notes: OB scan Date: 04/03 Time (requested): 1110 If slot is full, please schedule the closest open slot. Call to patient needed: no documented in this encounter [facility] 03-13-2024 Telephone encounter Note Patient calls with [...] ordered: HCG x2 FYI Dr. Bill Morrissey APRN.CNP March 13, 2024 1:37 PM [facility] 03-13-2024 Miscellaneous Notes Patient calls [...] Morrissey APRN.JORDAN March 13, 2024 1:37 PM Patient states she skipped this month and has +hpt, please follow up with patient. documented in this encounter [facility] 03-13-2024 Telephone encounter Note Patient states she skipped this month and has +hpt, please follow up with patient. [facility] Work Phone: 03-08-2024 History of Present illness [...] Use: Not At Risk (02/15/2024) Received from [facility] AUDIT-C Frequency of Alcohol Consumption: Never Average [...] and 96% in the left ear. Speech ophthalmic medical technician threshold is 10 dB in the right ear and 5 dB in the left ear. Procedure: [] Gabriel Blackwell DO documented in this encounter [facility] Work Phone: 02-28-2024 Telephone encounter Note Spoke [...] MORRISSEY APRN.CNP February 28, 2024 11:54 AM [facility] 02-28-2024 Miscellaneous Notes Spoke with Thao, Plan [...] after she pays documented in this encounter [facility] 02-28-2024 Telephone encounter Note Pt is not financially clear yet should she still schedule it after she pays [facility] 02-23-2024 Note HNO ID: [id number] Author: ORTEGA MORRISSEY APRN.CNP Service: ? Author Type: Nurse Practitioner Type: Progress Notes Filed: 02/23/2024 13:56 Note Text: Lissa Rivas is here today for a midcycle scan. Lead follicle: 11 Plan: repeat scan 02/24 Ortega Morrissey APRN.CNP February 23, 2024 1:54 PM Please schedule the patient for the following- Location: [facility] Provider: Nurse Visit type: midcycle Reason for visit/appointment notes: midcycle Date: 02/24 Time (requested): 07 If slot is full, please schedule the closest open slot. Call to patient needed: no [facility] 02-23-2024 Note HNO ID: [id number] Author: PAULA HESTER RN Service: ? Author [...] February 23, 2024 7:46 AM [facility] 02-23-2024 History of Present illness Narrative The patient is here today for follicular ultrasound and blood work. The patient reports no problems or complaints. Ultrasound and blood will be reviewed by the physician, the flow sheet will be updated and instructions will be communicated to the patient. Paula Hester RN February 23, 2024 7:46 AM documented in this encounter [facility] 02-21-2024 Telephone encounter Note Medication send the CS specialty on 02/17. Ortega Morrissey APRN.CNP February 21, 2024 10:39 AM [facility] 02-21-2024 Miscellaneous Notes Medication send the CS specialty on 02/17. Ortega Morrissey APRN.CNP February 21, 2024 10:39 AM [facility] documented in this encounter [facility] 02-21-2024 Telephone encounter Note Needs [facility]cg [facility] 02-17-2024 Plan of care note Lissa Rivas [...] visit. Either the patient or their legal sales representative girls' apparel has been informed of the risks and benefits of -- and alternatives to -- treatment through a remote evaluation and consents to proceed with the evaluation remotely. I spent a total of 30 minutes on the date of the service which included preparing to see the patient, uyon-of-kejd patient care, counseling and educating the patient/family/caregiver, ordering medications, tests, or procedures, communicating results to the patient/family/caregiver, and care coordination (not separately reported). Kim Khan MD [facility] 02-17-2024 Miscellaneous Notes Lissa Rivas is a [...] visit. Either the patient or their legal sales representative girls' apparel has been informed of the risks and benefits of -- and alternatives to -- treatment through a remote evaluation and consents to proceed with the evaluation remotely. I spent a total of 30 minutes on the date of the service which included preparing to see the patient, bzzs-vw-papv patient care, counseling and educating the patient/family/caregiver, ordering medications, tests, or procedures, communicating results to the patient/family/caregiver, and care coordination (not separately reported). Kim Khan MD documented in this encounter [facility] 02-15-2024 History of Present illness Narrative Images from the original note were not included. Robles Goldsmith, DO Obstetrics and Gynecology Lissa Rivas 1995 02/15/24 [id number] Yearly Wellness Exam Chief Complaint Patient presents [...] Lau Past Medical History: Diagnosis Date Asthma ([facility]) GERD (gastroesophageal reflux disease) PCOS (polycystic ovarian [...] angle tenderness, no obvious scoliosis/kyphosis. 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 She works from home for [employer]. Entered by Adilene Ford MA acting as scribe for Dr. Robles Goldsmith. Signature Adilene Ford MA Date 02/15/24 . Time 3:12 PM . The documentation recorded by the scribe accurately reflects the service(s) I personally performed and the decisions I made. Signature Jordan Goldsmith D.O. Date 02/15/24 Time 5:00PM. documented in this encounter [facility] 02-15-2024 Telephone encounter Note Spoke with Thao, [...] open slot. Call to patient needed: no [facility] 02-15-2024 Miscellaneous Notes Spoke with Thao, states [...] up with patient. documented in this encounter [facility] 02-15-2024 Telephone encounter Note Patient states this past month in January she did not ovulate so she did not go through with iui, please follow up with patient. [facility] Work Phone: 01-14-2024 Telephone encounter Note Spoke with Lissa, She is planning to use OPK only this cycle. Jeferson call with LH surge. Ortega Morrissey APRN.CNP January 14, 2024 4:17 PM [facility] 01-14-2024 Miscellaneous Notes Spoke with Lissa, She is planning to use OPK only this cycle. Jeferson call with LH surge. Ortega Morrissey APRN.CNP January 14, 2024 4:17 PM Pt started cycle 01/12 and would like to discuss plan for scheduling iui documented in this encounter [facility] 01-14-2024 Telephone encounter Note Pt started cycle 01/12 and would like to discuss plan for scheduling iui [facility] 12-31-2023 Note HNO ID: [id number] Author: ORTEGA MORRISSEY APRN.CNP Service: ? Author [...] Cycle Day: 20 Last menstrual period: 12/12/2023 Pride Protocol: UNIVERSAL PROTOCOL / SAFETY CHECKLIST Procedure [...] 31, 2023 TIME: 10:25 AM [facility] 12-31-2023 Procedure note WHI GAYATHRI IUI PROCEDURE NOTE Date: 12/31/2023 Primary Proceduralist: Ortega Morrissey APRN.CNP Consents and Labels Consent Signed: Informed Consent obtained and on the chart Labels Verified With Patient: Yes Indications: Lissa Rivas, is a 28 year old female here today for intrauterine insemination. IUI # Series 1 Cycle 3. Cycle Day: 20 Last menstrual period: 12/12/2023 Pride Protocol: UNIVERSAL PROTOCOL / SAFETY CHECKLIST Procedure [...] DATE: December 31, 2023 TIME: 10:25 AM [facility] 12-31-2023 Procedure note WHI GAYATHRI IUI PROCEDURE NOTE Date: 12/31/2023 Primary Proceduralist: Ortega Morrissey APRN.CNP Consents and Labels Consent Signed: Informed Consent obtained and on the chart Labels Verified With Patient: Yes Indications: Lissa Rivas, is a 28 year old female here today for intrauterine insemination. IUI # Series 1 Cycle 3. Cycle Day: 20 Last menstrual period: 12/12/2023 Pride Protocol: UNIVERSAL PROTOCOL / SAFETY CHECKLIST Procedure [...] TIME: 10:25 AM documented in this encounter [facility] 12-31-2023 Nurse Note Religious Ritual Slaughterer offered: Patient declines. [facility] 12-31-2023 Nurse Note Religious Ritual Slaughterer offered: Patient declines. documented in this encounter [facility] 12-21-2023 History of Present illness Narrative pt [...] plan provided to patient via a Fertility council member. Kim Khan MD documented in this encounter [facility] 12-21-2023 Note HNO ID: [id number] Author: ROBIN GREWAL RN Service: ? Author Type: Registered Nurse Type: Progress Notes Filed: 12/21/2023 14:32 Note Text: pt using LH surge strips and will call to irvin Grewal RN December 21, 2023 2:32 PM [facility] 12-21-2023 Note HNO ID: [id number] Author: FEDE HAIRSTON MD Service: ? Author [...] plan provided to patient via a Fertility council member. Kim Khan MD [facility] 12-13-2023 Telephone encounter Note LMP 12/11 Plan: Let 5mg, trigger, IUI#2 Flowsheet/episode created Ortega Morrissey APRN.CNP December 13, 2023 4:42 PM Please schedule the patient for the following- Location: [place] Provider: Nurse Visit type: Midcycle Reason for visit/appointment notes: Midcycle Date: 12/20 Time (requested): 730 If slot is full, please schedule the closest open slot. Call to patient needed: no [facility] 12-13-2023 Miscellaneous Notes LMP 12/11 Plan: Let 5mg, trigger, IUI#2 Flowsheet/episode created Ortega Morrissey APRN.CNP December 13, 2023 4:42 PM Please schedule the patient for the following- Location: [place] Provider: Nurse Visit type: Midcycle Reason for visit/appointment notes: Midcycle Date: 12/20 Time (requested): 730 If slot is full, please schedule the closest open slot. Call to patient needed: no documented in this encounter [facility] 11-28-2023 Note HNO ID: [id number] Author: EVANGELINA PAINTER, ? Service: ? Author Type: Market Developer Type: Progress Notes Filed: 11/28/2023 11:00 Note Text: IUI Pre: 72 M/ml, 63% Post: 73 M/ml, 88% Insem # 44.8 million [facility] 11-28-2023 History of Present illness Narrative IUI Pre: 72 M/ml, 63% Post: 73 M/ml, 88% Insem # 44.8 million IUI specimen released to provider Evangelina Painter November 28, 2023 10:48 AM documented in this encounter [facility] 11-28-2023 Note HNO ID: [id number] Author: DESHAWN RIOJAS MD Service: ? Author [...] Cycle Day: 13 Last menstrual period: 11/12/2023 Pride Protocol: UNIVERSAL PROTOCOL / SAFETY CHECKLIST Procedure [...] 28, 2023 TIME: 10:52 AM [facility] 11-28-2023 Procedure note WHI GAYATHRI IUI PROCEDURE NOTE Date: 11/28/2023 Primary Proceduralist: Deshawn Riojas MD, Sandra Cruz MD Consents and Labels Consent Signed: Informed Consent obtained and on the chart Labels Verified With Patient: Yes Indications: Lissa Rivas, is a 28 year old female here today for intrauterine insemination. IUI # . Cycle Day: 13 Last menstrual period: 11/12/2023 Pride Protocol: UNIVERSAL PROTOCOL / SAFETY CHECKLIST Procedure [...] November 28, 2023 TIME: 10:52 AM T [facility] 11-28-2023 Procedure note WHI GAYATHRI IUI PROCEDURE NOTE Date: 11/28/2023 Primary Proceduralist: Deshawn Riojas MD, Sandra Cruz MD Consents and Labels Consent Signed: Informed Consent obtained and on the chart Labels Verified With Patient: Yes Indications: Lissa Rivas, is a 28 year old female here today for intrauterine insemination. IUI # . Cycle Day: 13 Last menstrual period: 11/12/2023 Pride Protocol: UNIVERSAL PROTOCOL / SAFETY CHECKLIST Procedure [...] TIME: 10:52 AM documented in this encounter [facility] 11-28-2023 Note HNO ID: [id number] Author: EVANGELINA PAINTER, ? Service: ? Author Type: Market Developer Type: Progress Notes Filed: 11/28/2023 10:54 Note Text: IUI specimen released to provider Evangelina Painter November 28, 2023 10:48 AM [facility] 11-22-2023 Note HNO ID: [id number] Author: ORTEGA MORRISSEY APRN.JORDAN Service: ? Author [...] and birthday verified: Yes Location of patient: [place] Persons Present: patient I have communicated my name and active licensure. The patient's identity and physical location were verified at the time of this visit. Either the patient or their legal sales representative girls' apparel has been informed of the risks and [...] Once starting progesterone had intense mood swings/irritability [place] heart was beating slower than normal but [...] will schedule IUI as instructed Ortega Morrissey APRN.WHITEWASHER November 22, 2023 2:33 PM I spent a total of 20 minutes on the date of the service which included preparing to see the patient, [id number] patient care, completing clinical documentation, obtaining and/or [...] typographical errors missed in proofreading. [facility] 11-22-2023 History of Present illness Narrative Images from the original note were not included. [facility] VIRTUAL VISIT PROGRESS NOTE SERVICE DATE: 11/22/2023 SERVICE TIME: 2:33 PM NAME: Lissa Rivas VIRTUAL VISIT PROGRESS NOTE This is a virtual visit. It required patient-provider interaction for the medical decision making as documented below. Patient name and birthday verified: Yes Location of patient: [place] Persons Present: patient I have communicated my name and active licensure. The patient's identity and physical location were verified at the time of this visit. Either the patient or their legal sales representative girls' apparel has been informed of the risks and [...] Once starting progesterone had intense mood swings/irritability [place] heart was beating slower than normal but [...] which included preparing to see the patient, [id number] patient care, completing clinical documentation, obtaining and/or [...] missed in proofreading. documented in this encounter [facility] 11-22-2023 Note HNO ID: [id number] Author: ERMA DONIS RN Service: ? Author [...] called patient. She will drive back to [place] now to get done. Erma Donis RN [...] November 22, 2023 12:53 PM [facility] 11-22-2023 History of Present illness Narrative Lissa Rivas is here today for a midcycle scan. Lead follicle: 21mm vs CL Erma Donis RN November 22, 2023 8:44 AM Message sent to Dr. Howard to see if patient needs labs based on scan. Erma Donis RN November 22, 2023 8:09 AM Labs ordered and called patient. She will drive back to [place] now to get done. Erma Donis RN [...] 2023 12:53 PM documented in this encounter [facility] 11-15-2023 Telephone encounter Note Plan: Let 5mg/trigger/IUI #2 Ortega Morrissey APRN.CNP November 15, 2023 9:39 AM Please schedule the patient for the following- Location: [place] Provider: Nurse Visit type: Follicular scan Reason for visit/appointment notes: Follicular scan Date: 11/21 Time (requested): 0715 If slot is full, please schedule the closest open slot. Call to patient needed: no [facility] 11-15-2023 Miscellaneous Notes Plan: Let 5mg/trigger/IUI #2 [...] started cycle 11/11 documented in this encounter [facility] 11-12-2023 Telephone encounter Note Patient is planning IUI. FYI: DEXTER Mg. Please see the checklist Madeleine Orta PA-C November 12, 2023 6:07 PM [facility] Work Phone: 11-12-2023 Telephone encounter Note Pt had iui / , pt had negative preg 8/13 or 8/14 , pt started cycle 816 [facility] 10-26-2023 Telephone encounter Note This patient gave [...] seven days of my reply. See the [employer] message reply for my assessment and plan. I spent a total of 5 minutes reviewing the patient's prior medical records and current request for medical advice, prescribing medications or ordering tests (if applicable), replying to the patient, and documenting the encounter. [facility] 10-26-2023 Miscellaneous Notes This patient gave consent [...] seven days of my reply. See the [employer] message reply for my assessment and plan. I spent a total of 5 minutes reviewing the patient's prior medical records and current request for medical advice, prescribing medications or ordering tests (if applicable), replying to the patient, and documenting the encounter. documented in this encounter [facility] 10-26-2023 Note HNO ID: [id number] Author: ORTEGA MORRISSEY APRN.CNP Service: ? Author [...] Cycle Day: 15 Last menstrual period: 10/12/2023 Pride Protocol: UNIVERSAL PROTOCOL / SAFETY CHECKLIST Procedure [...] 26, 2023 TIME: 11:36 AM [facility] 10-26-2023 Procedure note WHI GAYATHRI IUI PROCEDURE NOTE Date: 10/26/2023 Primary Proceduralist: Ortega Morrissey APRN.CNP Consents and Labels Consent Signed: Informed Consent obtained and on the chart Labels Verified With Patient: Yes Indications: Lissa Rivas, is a 28 year old female here today for intrauterine insemination. IUI # Series 1 Cycle 1. Cycle Day: 15 Last menstrual period: 10/12/2023 Pride Protocol: UNIVERSAL PROTOCOL / SAFETY CHECKLIST Procedure [...] DATE: October 26, 2023 TIME: 11:36 AM [facility] 10-26-2023 Procedure note WHI GAYATHRI IUI PROCEDURE NOTE Date: 10/26/2023 Primary Proceduralist: Ortega Morrissey APRN.CNP Consents and Labels Consent Signed: Informed Consent obtained and on the chart Labels Verified With Patient: Yes Indications: Lissa Rivas, is a 28 year old female here today for intrauterine insemination. IUI # Series 1 Cycle 1. Cycle Day: 15 Last menstrual period: 10/12/2023 Pride Protocol: UNIVERSAL PROTOCOL / SAFETY CHECKLIST Procedure [...] TIME: 11:36 AM documented in this encounter [facility] 10-22-2023 Note HNO ID: [id number] Author: AYANNA TREVIZO MD Service: ? Author Type: Physician Type: Progress Notes Filed: 10/22/2023 23:02 Note Text: GAYATHRI Attending Physician Note: Ultrasound and lab results reviewed. Based on review of ultrasound and lab results, medication dose and follow up date plans provided. See cycle flowsheet for dosing details. Ayanna Trevizo MD, FLACO [facility] 10-22-2023 Note HNO ID: [id number] Author: ERMA DONIS RN Service: ? Author [...] October 22, 2023 1:38 PM [facility] 10-22-2023 History of Present illness Narrative [...] 2023 1:38 PM documented in this encounter [facility] 10-20-2023 Telephone encounter Note patient instructed to order trigger now so that she has it by Wednesday Ani Stovall APRN.CNP October 20, 2023 3:10 PM [facility] 10-20-2023 Miscellaneous Notes patient instructed to order trigger now so that she has it by Wednesday Ani Stovall APRN.CNP October 20, 2023 3:10 PM Pts pharmacy called and would like to know when she needs to order trigger shot documented in this encounter [facility] 10-20-2023 Telephone encounter Note Pts pharmacy called and would like to know when she needs to order trigger shot [facility] 10-12-2023 Telephone encounter Note The following approved medication requests have been transmitted electronically. Requested Prescriptions Signed Prescriptions Disp Refills Choriogonadotropin Pam,HumRec (OVIDREL) 250 mcg/0.5 mL syrg 0.5 mL 1 Sig: Inject 250 mcg subcutaneously one time only for 1 dose. Authorizing Provider: ORTEGA MORRISSEY APRN.CNP October 12, 2023 4:10 PM [facility] 10-12-2023 Miscellaneous Notes The following approved medication [...] schedule the patient for the following- Location: [place] Provider: nurse Visit type: mid cycle Reason for visit/appointment notes: mid cycle non ivf Date: 10-22-23 Time (requested): 0700 If slot is full, please schedule the closest open slot. Call to patient needed: no Patient states she also needs information regarding trigger shot. Please call patient. documented in this encounter [facility] 10-12-2023 Telephone encounter Note Called the patient she verified her name and date of period started today has letrozole needs trigger shot Randee Myers RN October 12, 2023 2:30 PM Flowsheet done Please schedule the patient for the following- Location: [place] Provider: nurse Visit type: mid cycle Reason for visit/appointment notes: mid cycle non ivf Date: 10-22-23 Time (requested): 0700 If slot is full, please schedule the closest open slot. Call to patient needed: no [facility] 10-12-2023 Telephone encounter Note Patient states she also needs information regarding trigger shot. Please call patient. [facility] Work Phone: 09-10-2023 History of Present illness Narrative Images from the original note were not included. [facility] IUI TEACH SERVICE DATE: 09/10/2023 SERVICE TIME: 2:56 PM NAME: Lissa Rivas VIRTUAL VISIT PROGRESS NOTE This is a virtual visit. It required patient-provider interaction for the medical decision making as documented below. Patient name and birthday verified: Yes Location of patient: [place] Persons Present: patient I have communicated my name and active licensure. The patient's identity and physical location were verified at the time of this visit. Either the patient or their legal sales representative girls' apparel has been informed of the risks and benefits of -- and alternatives to -- treatment through a remote evaluation and consents to proceed with the evaluation remotely. Reason for visit: IUI Teach HPI Primary GAYATHRI Physician: Dr. Khan IUI Treatment Plan: Letrozole 5mg/trigger/IUI Partner's name/MRN: Brenton [id number] LMP: 07/23 IUI Checklist: Consultation: Done Registration of patient and partner: Done Financial Clearance: In process IUI Patient Education: ASRM IUI Patient Fact Sheet IUI Consent Form: sent today via [employer] [place] Orders: filed today Medications ordered today [...] Count Sperm M 592.20 % Motile Sperm (%MS + %MAINTENANCE DIRECTOR) >=40 % 64 Forward Progression 4 = [...] which included preparing to see the patient, [id number]-[id number] patient care, completing clinical documentation, obtaining and/or [...] missed in proofreading. documented in this encounter [facility] 09-09-2023 Telephone encounter Note The following approved medication requests have been transmitted electronically. Requested Prescriptions Signed Prescriptions Disp Refills medroxyPROGESTERone (PROVERA) 10 mg tablet 10 tablet 0 Sig: Take 1 tablet by mouth once daily. Authorizing Provider: ORTEGA MORRISSEY APRN.CNM September 09, 2023 9:07 AM [facility] 09-09-2023 Miscellaneous Notes The following approved medication [...] her lab results documented in this encounter [facility] 09-09-2023 Telephone encounter Note Called the patient [...] 0.2 hCG Quantitative, Blood <5.0 mIU/mL <0.6 [facility] 09-08-2023 Telephone encounter Note Iui Patient called in regards to her lab results [facility] 09-02-2023 Telephone encounter Note Returned patient call [...] Mcclellan RN September 02, 2023 1:11 PM [facility] 09-02-2023 Miscellaneous Notes Returned patient call to [...] up with patient. documented in this encounter [facility] 09-02-2023 Telephone encounter Note Returned patient call. [...] Mcclellan RN September 02, 2023 11:41 AM [facility] 09-02-2023 Telephone encounter Note Please follow up with patient. [facility] Work Phone: 08-19-2023 Progress note Formatting of t his note is different from the original. 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 Either the patient or their legal sales representative girls' apparel has been informed of the risks and benefits of -- and alternatives to -- treatment through a remote evaluation and consents to proceed with the evaluation remotely. I spent a total of 30 minutes on the date of the service which included preparing to see the patient, fnxu-ca-lixm patient care, completing clinical documentation, counseling and educating the patient/family/caregiver, ordering medications, tests, or procedures, communicating results to the patient/family/caregiver, and care coordination (not separately reported). Kim Khan MD [facility] 08-19-2023 Consult note Formatting of th is note is different from the original. [facility] Date: 08/19/2023 Consultation Requested [...] appointment with cancer genetic team soon. 5. [employer] - test neg for all mutations. 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 Either the patient or their legal sales representative girls' apparel has been informed of the risks and benefits of -- and alternatives to -- treatment through a remote evaluation and consents to proceed with the evaluation remotely. I spent a total of 30 minutes on the date of the service which included preparing to see the patient, olfr-lq-zqgq patient care, completing clinical documentation, counseling and educating the patient/family/caregiver, ordering medications, tests, or procedures, communicating results to the patient/family/caregiver, and care coordination (not separately reported). Kim Khan MD documented in this encounter [facility] 08-19-2023 Plan of care note Patient indicated [...] daily Comments: None Kim Khan MD 08/19/2023 [facility] 08-19-2023 Miscellaneous Notes Patient indicated that her [...] Khan MD 08/19/2023 documented in this encounter [facility] 08-17-2023 History of Present [...] while trying for , who presents to critical access [facility] care. Her genetic testing indicates she [...] Мария Laboy MD documented in this encounter [facility] 08-17-2023 Nurse Note Tobacco Use: Never Was smoking cessation packet given? N/A - Patient is a non-smoker or quit >1 year ago. Was a referral initiated?N/A Patient is a non-smoker [facility] 08-17-2023 Nurse Note Tobacco Use: Never Was smoking cessation packet given? N/A - Patient is a non-smoker or quit >1 year ago. Was a referral initiated?N/A Patient is a non-smoker documented in this encounter [facility] 08-17-2023 History of Present [...] MD, MPH Endocrinology documented in this encounter [facility] 08-17-2023 Instructions Latosha Wesley MA - 08/17/2023 9:53 AM EDT Thank you for choosing the [facility] Department of Endocrinology, Diabetes and Metabolism. Did you know that you need to call 48 hours in advance of your scheduled visit, if you are unable to make your appointment? [facility] thanks you for your commitment, because patients not showing to their appointment results in a lost opportunity for patients to receive [facility] health care at the [facility]. To Cancel an appointment, please choose one of the following: - Call the Appointment Call Center at [phone] - From [employer], Go to Appointments - Cancel Appts If cancelling, consider your need to reschedule to prevent further delays in your care. To Schedule an appointment, please choose one of the following: - Call the Appointment Call Center at [phone] - From [employer], Go to Appointments - Request an Appt documented in this encounter [facility] 07-29-2023 History of Present illness Narrative Radiology [...] PATIENT PRESENTS WITH AN IMPLANTABLE OR ATTACHED LINUX UNIX ENGINEER: No RADIOLOGY DEPARTMENT: General X-ray: Exam(s) Completed: HSG PERIPHERAL IV DATA: Not applicable SIGNED BY: RT Clark(Loc) July 29, 2023 1:58 PM documented in this encounter [facility] 07-29-2023 Note HNO ID: [id number] Author: FLIP NEWMAN RT(Loc) Service: Radiology Author [...] PATIENT PRESENTS WITH AN IMPLANTABLE OR ATTACHED LINUX UNIX ENGINEER: No RADIOLOGY DEPARTMENT: General X-ray: Exam(s) Completed: HSG PERIPHERAL IV DATA: Not applicable SIGNED BY: RT Clark(Loc) July 29, 2023 1:58 PM [facility] 07-29-2023 Note HNO ID: [id number] Author: ORTEGA MORRISSEY APRN.CNM Service: ? Author Type: Nurse Practitioner Type: Procedures Filed: 07/29/2023 14:50 Note Text: WHNelson GAYATHRI HYSTEROSALPINGOGRAM NOTE Date: July 29, [...] without evidence of loculation. Ortega Morrissey APRN.CNM [facility] 07-29-2023 Procedure note WHI GAYATHRI HYSTEROSALPINGOGRAM NOTE [...] without evidence of loculation. Ortega Morrissey APRN.CNM [facility] 07-29-2023 Procedure note Nelson TRINH HYSTEROSALPINGOGRAM NOTE [...] Ortega Morrissey APRN.CNM documented in this encounter [facility] 06-16-2023 Miscellaneous Notes Addended [...] Мария Laboy. Patient will be updated via [employer] when orders are placed for imaging. Fina Davalos MS, [facility] Licensed, Certified Genetic Counselor documented in this encounter [facility] 06-14-2023 Telephone encounter Note Patient had questions [...] children. Elsa Puentes MS, [facility] Licensed, Certified Genetic Counselor [facility] Work Phone: 06-14-2023 Miscellaneous Notes Patient had [...] children. Elsa Puentes MS, [facility] Licensed, Certified Genetic Counselor Patient name and was confirmed at initiation of discussion. Lissa Rivas's Integrated BRACAnalysis with Humberto through [employer] was positive for a pathogenic variant in [...] population without disease (benign polymorphism). Please see [employer] message for further discussion. CHRISTIE Magdaleno Licensed, Certified Genetic Counselor documented in this encounter [facility] 06-10-2023 Telephone encounter Note Patient name and was confirmed at initiation of discussion. Lissa Rivas's Integrated BRACAnalysis with Humberto through [employer] was positive for a pathogenic variant in [...] population without disease (benign polymorphism). Please see [employer] message for further discussion. CHRISTIE Magdaleno Licensed, Certified Genetic Counselor [facility] 05-25-2023 Miscellaneous Notes The following approved medication [...] May 25, 2023 10:06 AM Valentin in [place] is pharmacy. Please follow up with patient. documented in this encounter [facility] 05-17-2023 Miscellaneous Notes Spoke to Thao again, [...] detect the familial mutation. 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 The patient was offered SDHA single site mutation analysis through [employer] or self pay Integrated BRACAnalysis with [employer] and SDHA single site mutation analysis through [employer]. After considering the risks, benefits, and limitations, the patient chose to pursue and provided informed consent for the following testing: SELF PAY Integrated BRACAnalysis with [employer] and SDHA single site mutation analysis through [employer]. The [employer] panel includes APC, MICHAEL, AXIN2, BAP1, BARD1, BMPR1A, BRCA1, BRCA2, BRIP1, CDH1, CDK4, CDKN2A, CHEK2, CTNNA1, EGFR, EPCAM, FH, FLCN, GREM1, HOXB13, MEN1, MET, MITF, MLH1, MSH2, MSH3, MSH6, MUTYH, NTHL1, PALB2, PMS2, POLD1, POLE, PTEN, RAD51C, RAD51D, RET, SDHA, SDHB, SDHC, SDHD, SMAD4, STK11, TERT, TP53, TSC1, TSC2, and VHL [employer] looks at genes related to inherited breast, ovarian, pancreatic, prostate, colon, uterine, kidney, lung, endocrine, and stomach cancer, as well as inherited colon polyp and melanoma syndromes. We discussed that an NGS panel can rarely result in an unexpected finding which may or may not be related to the presenting phenotype. We discussed that [employer] may contact the patient by text or phone call regarding billing. The patient should watch for this communication and respond promptly. The patient should contact [employer] directly with any billing questions (ph. [phone]). Elsa Puentes MS, [facility] Licensed, Certified Genetic [...] NTHL1, PALB2, PDGFRA, PMS2, POLD1, POLE, POT1, OFBZM9Q, PTCH1, PTEN, RAD51C, RAD51D, RB1, RET, SDHA, SDHAF2, SDHB, SDHC, SDHD, SMAD4, SMARCA4, SMARCB1, SMARCE1, STK11, SUFU, WRLW289, TP53, TSC1, TSC2, and VHL The Multi-Cancer panel looks at genes associated with cancers of the breast, gynecologic tract (ovarian, uterine/endometrial), gastrointestinal system (colorectal, gastric, pancreatic), endocrine glands (thyroid, parathyroid, pituitary, adrenal glands), genitourinary tract (renal/urinary tract, prostate), skin (melanoma, basal cell carcinoma), and brain/nervous system. AM CHECKING WITH [employer] ABOUT VARIANT BEFORE PROCEEDING, WILL CONTACT PATIENT WHEN READY TO MOVE FORWARD. Elsa Puentes MS, [facility] Licensed, Certified Genetic Counselor documented in this encounter [facility] 04-21-2023 Note HNO ID: [id number] Author: ELSA PUENTES LGC Service: ? Author Type: Genetic Counselor Type: Progress Notes Filed: 05/18/2023 16:44 Note Text: [facility] Consultation Note Genetic Counselor: Elsa Puentes MS, [facility] Patient: Lissa Rivas Patient Name and confirmed at initiation of visit. The patient provided consent for a virtual visit by [employer]. I have communicated my name and active licensure. The patient's identity and physical location were verified at the time of this visit. Either the patient or their legal sales representative [employer] has been informed of the risks and [...] , descent and paternal ancestors are of Greek descent. There is no Ashkenazi Rastafari ancestry. There is no known consanguinity. A [...] We also revi (more content not included)... [facility] 04-21-2023 History of Present illness Narrative Images from the original note were not included. [facility] Consultation Note Genetic Counselor: Elsa Puentes MS, [facility] Patient: Lissa Rivas Patient Name and confirmed at initiation of visit. The patient provided consent for a virtual visit by Rachel Jerome. I have communicated my name and active licensure. The patient's identity and physical location were verified at the time of this visit. Either the patient or their legal sales representative [employer] has been informed of the risks and [...] , descent and paternal ancestors are of Greek descent. There is no Ashkenazi Rastafari ancestry. There is no known consanguinity. A [...] extend to insurances such as life insurance, senior living care, or disability. The patient was seen for a total of 30 minutes, greater than 50% of which was spent [id number] counseling. This plan is being carried out under the oversight of Dr. Annamarie Joe. This note will also be sent to the referring provider via the electronic medical record. Elsa Puentes MS, [facility] CC: Dr. Fede Joe documented in this encounter [facility] 04-18-2023 Miscellaneous Notes Lissa Rivas is a [...] Kim Khan MD documented in this encounter [facility] 04-07-2023 Consult note Formatting of th is [...] Laparoscopy OPK (Ovulation Predictor Kit) [facility] [place] [facility] 10.91 High 01/04/2023 Saline Ultrasound Semen [...] which included preparing to see the patient, [id number] patient care, counseling and educating the patient/family/caregiver, and ordering medications, tests, or procedures. I have communicated my name and active licensure. The patient's identity and physical location were verified at the time of this visit. Either the patient or their legal sales representative [employer] has been informed of the risks and benefits of -- and alternatives to -- treatment through a remote evaluation and consents to proceed with the evaluation remotely. Kim Khan MD documented in this encounter [facility] 02-08-2023 History of Present illness Narrative Patient is here for ultrasound. Please see image section in Epic for results. Kim Khan MD documented in this encounter [facility] 02-04-2023 Miscellaneous Notes 21 day progesterone level ordered. Ortega Morrissey APRN.CNP February 04, 2023 2:12 PM Pt states she has started her letrozole today documented in this encounter [facility] 06-26-2022 Evaluation note Encounter Date Diagnosis Assessment [...] May, Other Puncture wound material was printed [employer] Other 01-01-2021 History general Narrative - Reported* Type Description Date Medical History asthma Surgical History laser eye surgery, bilateral Hospitalization History Rash, age 5 [employer] Other Evaluation note* Diagnosis Encounter for fertility testing- Primary Fertility testing [facility] Diagnosis Secondary amenorrhea Absence of menstruation PCOS (polycystic ovarian syndrome) Polycystic ovaries [facility] Diagnosis PCOS (polycystic ovarian syndrome)- Primary Polycystic ovaries Fertility testing [facility] Diagnosis Family history of cancer- Primary Family history of unspecified malignant neoplasm Family history of gene mutation [facility] Diagnosis Family history of breast cancer- Primary Family history of malignant neoplasm of breast Family history of prostate cancer Family history of malignant neoplasm of prostate [facility] Diagnosis Procreative management- Primary Unspecified procreative management [facility] Diagnosis Monoallelic mutation of SDHA gene- Primary Localized enlarged lymph nodes Enlargement of lymph nodes Intra-abdominal and pelvic swelling, mass and lump, unspecified site [facility] Diagnosis Encounter for fertility testing- Primary Fertility testing Pre-procedure lab exam Pre-procedural laboratory examination [facility] Diagnosis Fertility testing [facility] Diagnosis Monoallelic mutation of SDHA gene- Primary Obesity, Class III, BMI 40-49.9 (morbid obesity) (HCC) Morbid obesity [facility] Diagnosis Irregular menstrual cycle- Primary PCOS (polycystic ovarian syndrome) Polycystic ovaries [facility] Diagnosis Monoallelic mutation of SDHA gene- Primary [facility] Diagnosis Secondary amenorrhea- Primary Absence of menstruation [facility] Diagnosis Secondary amenorrhea- Primary Absence of menstruation [facility] Diagnosis Screen for sexually transmitted diseases- Primary Screening examination for venereal disease Secondary amenorrhea Absence of menstruation Female infertility Female infertility of unspecified origin [facility] Diagnosis Procreation management investigation and testing- Primary Other investigation and testing for procreative management [facility] Diagnosis Treatment plan provided- Primary [facility] Diagnosis Female infertility Female infertility of unspecified origin [facility] Diagnosis Encounter for artificial insemination- Primary Artificial insemination [facility] Diagnosis Procreation management investigation and testing- Primary Other investigation and testing for procreative management [facility] Diagnosis Procreation management investigation and testing- Primary Other investigation and testing for procreative management Female infertility Female infertility of unspecified origin [facility] Diagnosis Procreation management investigation and testing- Primary Other investigation and testing for procreative management [facility] Diagnosis Procreation management investigation and testing- Primary Other investigation and testing for procreative management [facility] Diagnosis Female infertility Female infertility of unspecified origin [facility] Diagnosis Procreation management investigation and testing- Primary Other investigation and testing for procreative management [facility] Diagnosis Female infertility- Primary Female infertility of unspecified origin [facility] Diagnosis Female infertility- Primary Female infertility of unspecified origin [facility] Diagnosis Encounter for artificial insemination- Primary Artificial insemination [facility] Diagnosis Procreation management investigation and testing- Primary Other investigation and testing for procreative management [facility] Diagnosis Female infertility- Primary Female infertility of unspecified origin documented in this encounter [facility] note* Diagnosis Encounter for gynecological examination without abnormal finding- Primary Screening for malignant neoplasm of cervix Screening for malignant neoplasm of the cervix Desire for BV (bacterial vaginosis) Unspecified vaginitis and vulvovaginitis [facility] Diagnosis Procreation management investigation and testing- Primary Other investigation and testing for procreative management [facility]* Diagnosis Female infertility Female infertility of unspecified origin [facility] Diagnosis Female infertility- Primary Female infertility of unspecified origin [facility]* Diagnosis Otalgia of both ears- Primary Temporomandibular joint disorder Unspecified temporomandibular joint disorders Chronic allergic rhinitis Postnasal drip documented in this encounter [facility] Work Phone: [facility]* Diagnosis Supervision of with history of infertility, first trimester- Primary examination or test, unconfirmed [facility] Diagnosis Encounter for test, result positive- Primary examination or test, positive result documented in this encounter [facility] note* Diagnosis Supervision of with history of infertility, first trimester- Primary [facility]* Diagnosis PCOS (polycystic ovarian syndrome)- Primary Polycystic ovaries [facility]* Diagnosis Encounter for supervision of normal first in first trimester Encounter for drug screening [facility] Diagnosis Supervision of with history of infertility, first trimester [facility] Diagnosis Procreation management investigation and testing- Primary Other investigation and testing for procreative management documented in this encounter [facility] note* Diagnosis Missed menses , unspecified gestational age Encounter for supervision of normal first in first trimester 9 weeks gestation of [facility]* Diagnosis First trimester state, incidental 13 weeks gestation of Urinary tract infection without hematuria, site unspecified [facility]* Diagnosis Onychomycosis- Primary Dermatophytosis of nail Onychodystrophy Other specified disease of nail Xerosis cutis Other specified disease of sebaceous glands Fissure in skin of both feet documented in this encounter [facility]* Diagnosis Second trimester state, incidental 14 weeks gestation of Spotting in Spotting complicating , unspecified as to episode of care or not applicable documented in this encounter [facility]* Diagnosis Monoallelic mutation of SDHA gene- Primary [facility] Diagnosis Diabetes mellitus screening Screening for diabetes mellitus Second trimester state, incidental 22 weeks gestation of documented in this encounter [facility]* Diagnosis Annual physical exam- Primary Routine general medical examination at a health care facility Hepatic steatosis Other chronic 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 Polycystic ovaries Vitamin D deficiency Palpitations Murmur Undiagnosed cardiac murmurs documented in this encounter [facility]* Diagnosis Second trimester state, incidental 26 weeks gestation of documented in this encounter [facility] HealthcareEvaluation noteNo assessment information [facility]Sam[facility] Work Phone: Evaluation note* Diagnosis Gestational diabetes mellitus (GDM) in third trimester, gestational diabetes method of control unspecified- Primary [facility]* Diagnosis Monoallelic mutation of SDHA gene- Primary Gestational diabetes mellitus (GDM) in third trimester, gestational diabetes method of control unspecified (HCC) [facility] Diagnosis 28 weeks gestation of Third trimester state, incidental Gestational diabetes mellitus (GDM), antepartum, gestational diabetes method of control unspecified Herpes simplex virus type 1 (HSV-1) dermatitis documented in this encounter [facility]* Diagnosis Insulin controlled gestational diabetes mellitus (GDM) in third trimester Abnormal liver enzymes Abnormal genetic test Gestational diabetes requiring insulin Abnormal maternal glucose tolerance, complicating , childbirth, or the puerperium, unspecified as to episode of care Elevated blood pressure affecting , antepartum documented [facility]* Diagnosis History of gestational diabetes- Primary Personal history of other genital system and obstetric disorders Third trimester ([facility]) state, incidental 31 weeks gestation of (HHS-HCC) [facility]* Diagnosis Gestational diabetes requiring insulin Abnormal maternal glucose tolerance, complicating , childbirth, or the puerperium, unspecified as to episode of care Elevated blood pressure affecting , antepartum Insulin controlled gestational diabetes mellitus (GDM) in third trimester Abnormal liver enzymes [facility] Diagnosis Insulin controlled gestational diabetes mellitus (GDM) in third trimester- Primary Gestational diabetes requiring insulin Abnormal maternal glucose tolerance, complicating , childbirth, or the puerperium, unspecified as to episode of care [facility]* Diagnosis Third trimester (HHS-HCC) state, incidental Insulin controlled gestational diabetes mellitus (GDM) during , antepartum (HHS-HCC) 32 weeks gestation of (HHS-HCC) documented in this encounter [facility]* Diagnosis Herpes simplex- Primary Herpes simplex without mention of complication 33 weeks gestation of (HHS-HCC) Encounter for routine care ([facility]-HCC) Third trimester (HHS-HCC) state, incidental documented in this encounter [facility] HealthcareInstructionsNot on filedocumented in [facility] SystemInstructionsNot on filedocumented in this encounterDet[facility] SystemInstructionsNot on filedocumented in this encounterDetwiler [facility] SystemInstructionsNot on filedocumented in this encounter[facility] InstructionsNot on filedocumented in this encounterDet[facility] InstructionsNot on filedocumented in this encounterDet[facility] InstructionsNot on filedocumented in this encounterDetwiler [facility] SystemReason for referral (narrative)* Diagnostic Procedure Only (Routine) - Pending Review Specialty Diagnoses / Procedures Referred By Blair beltran Referred To Contact XR IMAGING Diagnoses Fertility testing Procedures XR HYSTEROSALPINGOGRAM CATH & SALINE/CONTRAST SONOHYSTER/HYSTEROSALPI Fede Hairston MD [address] [place] [address] [place] [address] Referral ID Status Reason Start Date Expiration Date Visits Requested Visits Authorized [id number] Pending Review Auto-Generat ed Referral 04/18/2023 05/17/2024 [facility] Diagnostic Procedure Only (Routine) - Pending Review Specialty Diagnoses / Procedures Referred By Contac t Referred To Contact [facility] Diagnoses Female infertility Procedures FOLLICULAR US WHI US PELVIC NONOBSTETRIC IMAGE CRISSTLynnette LIMITED/F/U Ortega Morrissey APRN.CNM [id number] [place] [address] [place] [id number] Referral ID Status Reason Start Date Expiration Date Visits Requested Visits Authorized [id number] Pending Review Auto-Generat ed Referral 09/10/2023 09/09/2024 1 1 [facility] Diagnostic Procedure Only (Routine) - New Request Specialty Diagnoses / Procedures Referred By Contac t Referred To Contact [facility] Diagnoses Female infertility Procedures FOLLICULAR US WHI US PELVIC NONOBSTETRIC IMAGE JOE HUFF/F/U Ortega Morrissey APRN.WHITEW[employer]ER [id number] [place] [address] [address] Referral ID Status Reason Start Date Expiration Date Visits Requested Visits Authorized [id number] New Request Auto-Generat ed Referral 12/13/2023 12/12/2024 1 1 [facility] for referral (narrative)* Diagnostic Procedure Only (Routine) - New Request Specialty Diagnoses / Procedures Referred By Contac t Referred To Contact [facility] Diagnoses Female infertility Procedures FOLLICULAR US WHI US PELVIC NONOBSTETRIC IMAGE CRISSTLynnette LIMITED/F/U Ortega Morrissey APRN.CNP [id number] [place] [address] [place] [address] [place] [address] Referral ID Status Reason Start Date Expiration Date Visits Requested Visits Authorized [id number] New Request Auto-Generat ed Referral 4 02/14/2025 1 1 [facility] for referral (narrative)* Diagnostic Procedure Only (Routine) - Authorized Specialty Diagnoses / Procedures Referred By Contac t Referred To Contact [facility] Diagnoses Supervision of with history of infertility, first trimester Procedures OBSTETRIC ULTRASOUND WHI US PREG UTERUS AFTER 1ST TRIMEST GESTATION Ortega Morrissey APRN.CNP [address] [place] [address] [place] [address] [place] [address] Referral ID Status Reason Start Date Expiration Date Visits Requested Visits Authorized [id number] Authorized Auto-Generat ed Referral 03/17/2025 1 1 [facility] for visit Narrative* Diagnostic Procedure Only (Routine) - Closed Specialty Diagnoses / Procedures Referred By Contac t Referred To [facility] Diagnoses Supervision of with history of infertility, first trimester Procedures OBSTETRIC ULTRASOUND WHI US PREG UTERUS AFTER 1ST TRIMEST GESTATION Ortega Morrissey APRN.WHITEWASHER [address] [place] [address] [address] Referral ID Status Reason Start Date Expiration Date V isits Requested Visits Authorized [id number] Closed Auto-Generate d Referral 03/17/2024 03/17/2025 1 1 [facility] Summary Purpose Family History No Family History Records Found Relationship Condition Age at Onset Recorded Date/T lucero father Diabetes mellitus Unknown Heart disease Unknown mother Hypertension Unknown Advance Directives No Advanced Directives Records Found Advance Directive Response Recorded Date/ Time Advance Directives No February 2:57pm Reason for Referral Specialty Diagnoses / Procedures Referred By Contac t Referred To Contact [facility] Diagnoses Female infertility Procedures FOLLICULAR US WHI US PELVIC NONOBSTETRIC IMAGE DCMTN LIMITED/F/U Ortega Morrissey APRN.WHITEWASHER [address] [place] [address] [facility] [address] [place] [address] Referral ID Status Reason Start Date Expiration Date Visits Requested Visits Authorized [id number] Authorized Benefit Check 11/15/2023 03/28/2024 1 1 Specialty Diagnoses / Procedures Referred By Contac t Referred To Contact Ortega Morrissey APRN.WHITEWASHER [address] [place] [address] Referral ID Status Reason Start Date Expiration Date Visits Re quested Visits Authorized [id number] Closed 1 1 Specialty Diagnoses / Procedures Referred By Contac t Referred To Contact Diagnoses Obesity, Class III, BMI 40-49.9 (morbid obesity) (HCC) Procedures ENDOCRINE MEDICAL WEIGHT MANAGEMENT OFFICE/OUTPATIENT [facility] 60 MINUTES Mirta Gallagher MD [address] [place] [address] Referral ID Status Reason Start Date Expiration Date Visits Requested Visits Authorized [id number] Authorized PCP Requested Referral 08/17/2023 08/16/2024 1 1 Specialty Diagnoses / Procedures Referred By Contac t Referred To Contact CT IMAGING Diagnoses Intra-abdominal and pelvic swelling, mass and lump, unspecified site Procedures CT ABDOMEN W IVCON CT ABDOMEN W/CONTRAST Мария Laboy MD [address] [facility] [place] [address] Ct Imaging [place] [address] Referral ID Status Reason Start Date Expiration Date Visits Requested Visits Authorized [id number] Pending Review Auto-Generat ed Referral 06/16/2023 07/15/2024 1 1 Specialty Diagnoses / Procedures Referred By Contac t Referred To Contact CT IMAGING Diagnoses Localized enlarged lymph nodes Procedures CT CHEST W IVCON DIAGNOSTIC COMPUTED TOMOGRAPHY THORAX W/CONTRAST Мария Laboy MD [address] [place] [address] [place] [address] Referral ID Status Reason Start Date Expiration Date Visits Requested Visits Authorized [id number] Pending Review Auto-Generat ed Referral 06/16/2023 07/15/2024 1 1 Specialty Diagnoses / Procedures Referred By Blair t Referred To Contact CT IMAGING Diagnoses Localized enlarged lymph nodes Procedures CT NECK SOFT TISSUE W IVCON CT SOFT TISSUE NECK W/CONTRAST MATERIAL Мария Laboy MD [address] [place] [address] Ct Imaging [facility] Referral ID Status Reason Start Date Expiration Date Visits Requested Visits Authorized [id number] Pending Review Auto-Generat ed Referral 06/16/2023 07/15/2024 1 1 Chief Complaint and Reason for Visit Chief Complaint Admit Date R00.2 R01.1 August 24, 2024 12:14 pm Additional Source Comments INFORMATION SOURCE (unrecogn ized section and content) DATE CREATED AUTHOR 12/06/2019 [facility] DATE CREATED AUTHOR AUTHOR'S ORGANIZ ATION 07/24/2023 [facility] DATE CREATED AUTHOR AUTHOR'S ORGANIZ ATION 02/25/2024 [facility] DATE CREATED AUTHOR AUTHOR'S ORGANIZ ATION 03/11/2024 [facility] DATE CREATED AUTHOR AUTHOR'S ORGANIZ ATION 03/11/2024 [facility] DATE CREATED AUTHOR AUTHOR'S ORGANIZ ATION 09/20/2024 [facility] DATE CREATED AUTHOR AUTHOR'S ORGANIZ ATION 09/21/2024 [facility] DATE CREATED AUTHOR AUTHOR'S ORGANIZ ATION 09/28/[address] [facility] DATE CREATED AUTHOR AUTHOR'S ORGANIZ ATION 10/05/2024 [facility] dical Specialists EPIC REASON FOR VISIT (unrecogniz ed section and content) Reason Comments Infertility Specialty Diagnoses / Procedures Referred By Blair t Referred To Contact [facility] Diagnoses Female infertility Procedures FOLLICULAR US WHI US PELVIC NONOBSTETRIC IMAGE DCMTN LIMITED/F/U Ortega Morrissey, DEBBIE.WHITEWASHER [address] [place] [address] [facility] [address] [place] [address] Referral ID Status Reason Start Date Expiration Date V isits Requested Visits Authorized [id number] Closed Benefit Check 02/16/2024 03/28/2024 1 1 Reason Comments started letrozole Specialty Diagnoses / Procedures Referred By Contac t Referred To Contact [facility] Diagnoses Secondary amenorrhea PCOS (polycystic ovarian syndrome) Procedures PELVIC US WHI US PELVIC NONOBSTETRIC REAL-TIME IMAGE COMPLETE Fede Hairston MD [address] [place] [address] [address] Referral ID Status Reason Start Date Expiration Date V isits Requested Visits Authorized [id number] Closed Benefit Check 01/21/2023 03/28/2023 1 1 Reason Comments Follow Up Reason Comments Follow Up Reason Comments Appointment Reason Comments refill letrozol/cycle to start in next w paimiut Reason Comments Supplemental Manager - Other Hereditary Para ganglioma-Pheochromocytoma Syndrome clinic Reason Comments Results Genetic Reason Comments Nurse Visit Specialty Diagnoses / Procedures Referred By Contac t Referred To Contact XR IMAGING Diagnoses Fertility testing Procedures XR HYSTEROSALPINGOGRAM CATH & SALINE/CONTRAST SONOHYSTER/HYSTEROSALPI HYSTEROSALPINGOGRAPHY RS&I URINE TEST Fede Hairston MD [address] [place] [address] [place] [address] Referral ID Status Reason Start Date Expiration Date V isits Requested Visits Authorized [id number] Closed Benefit Check 07/19/2023 03/28/2024 1 1 Reason Comments paraganglioma Reason Comments New Patient SHDA ref by Fina Tate Reason Comments lmp 07/23 no cycle since then Reason Comments Patient Question Reason Comments Treatment Planning Reason Comments Ortega lmp today/re us day 11-13 for iui Reason Comments trigger shot Specialty Diagnoses / Procedures Referred By Contac t Referred To Contact [facility] Diagnoses Female infertility Procedures FOLLICULAR US WHI US PELVIC NONOBSTETRIC IMAGE DCMTN LIMITED/F/U Ortega Morrissey, CYCLE LIAISON.WHITEWASHER [address] [place] [address] [facility] [address] [place] [address] Referral ID Status Reason Start Date Expiration Date Visits Re quested Visits Authorized [id number] Closed 09/14/2023 03/28/2024 1 1 Specialty Diagnoses / Procedures Referred By Contac t Referred To Contact [facility] Diagnoses Encounter for other procreative management Procedures ARTIFIC INSEMINATION INTRAUTERIN Ortega Morrissey APRN.WHITEWASHER [address] [place] [address] Ortega Morrissey APRN.WHITEWASHER [address] [place] [address] Referral ID Status Reason Start Date Expiration Date V isits Requested Visits Authorized [id number] Closed Benefit Check 09/17/2023 03/16/2024 1 1 Reason Comments iui 10/25 , cd 1 11/11 Reason Comments Treatment Planning Referral ID Status Reason Start Date Expiration Date V isits Requested Visits Authorized [id number] Closed Benefit Check 11/15/2023 03/28/2024 1 1 Specialty Diagnoses / Procedures Referred By Blair t Referred To Contact LABORATORY MEDICINE Diagnoses Encounter for other procreative management Procedures ARTIFIC INSEMINATION INTRAUTERIN Deshawn Riojas MD [address] [place] [address] [facility] [address] [place] [address] Referral ID Status Reason Start Date Expiration Date V isits Requested Visits Authorized [id number] Closed Financial Clearance Required - Self Pay 11/27/2023 02/25/2024 1 1 Reason Comments LMP 12/12/23/ set up monitored cycle Patient Update Referral ID Status Reason Start Date Expiration Date V isits Requested Visits Authorized [id number] Closed Benefit Check 12/15/2023 03/28/2024 1 1 Reason Comments IUI Specialty Diagnoses / Procedures Referred By Contac t Referred To Contact [facility] Diagnoses Encounter for other procreative management Female infertility, unspecified Procedures ARTIFIC INSEMINATION INTRAUTERIN Self Whi Gayathri [facility] [address] [place] [address] Referral ID Status Reason Start Date Expiration Date Visits Requested Visits Authorized [id number] Authorized Benefit Check 09/15/2023 03/16/2024 2 2 [...] Visit Reason Comments 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 Ongoing for quite a while. Has tried OTC products for both issues. Reason Comments Annual Exam No lab ordered prior to visit. Patient is feeling good. She is 4 months . Reason Comments Elevated Glucose Tolerance Test Specialty Diagnoses / Procedures Referred By Blair t Referred To Contact Maternal and Medicine Diagnoses Gestational diabetes mellitus (GDM) in third trimester, gestational diabetes method of control unspecified Saravanan Ahumada R, DO [address] [place] [address] Phone: tel: fax: Maternal- Medicine at [facility] [address] [place] [address] Phone: tel: fax: Referral ID Status Reason Start Date Expiration Date Visits Requested Visits Authorized [id number] Pending Review Specialty Services Required 08/29/2024 08/29/2025 [...] or prosecute any alcohol or drug abuse patient.[facility] Center[facility] the event this information is protected by the Federal Confidentiality of Alcohol and Drug Abuse Patient Records regulations: The Federal rules restrict any use of the information to criminally investigate or prosecute any alcohol or drug abuse patient.[facility] CenterIn the event this information is protected by the Federal Confidentiality of Alcohol and Drug Abuse Patient Records regulations: The Federal rules restrict any use of the information to criminally investigate or prosecute any alcohol or drug abuse patient.[facility] CenterIn the event this information is protected by the Federal Confidentiality of Alcohol and Drug Abuse Patient Records regulations: The Federal rules restrict any use of the information to criminally investigate or prosecute any alcohol or drug abuse patient.[facility] CenterIn the event this information is protected by the Federal Confidentiality of Alcohol and Drug Abuse Patient Records regulations: The Federal rules restrict any use of the information to criminally investigate or prosecute any alcohol or drug abuse patient.[facility] CenterIn the event this information is protected by the Federal Confidentiality of Alcohol and Drug Abuse Patient Records regulations: The Federal rules restrict any use of the information to criminally investigate or prosecute any alcohol or drug abuse patient.[facility] CenterIn the event this information is protected by the Federal Confidentiality of Alcohol and Drug Abuse Patient Records regulations: The Federal rules restrict any use of the information to criminally investigate or prosecute any alcohol or drug abuse patient.[facility] CenterIn the event this information is protected by the Federal Confidentiality of Alcohol and Drug Abuse Patient Records regulations: The Federal rules restrict any use of the information to criminally investigate or prosecute any alcohol or drug abuse patient.[facility] CenterIn the event this information is protected by the Federal Confidentiality of Alcohol and Drug Abuse Patient Records regulations: The Federal rules restrict any use of the information to criminally investigate or prosecute any alcohol or drug abuse patient.[facility] CenterIn the event this information is protected by the Federal Confidentiality of Alcohol and Drug Abuse Patient Records regulations: The Federal rules restrict any use of the information to criminally investigate or prosecute any alcohol or drug abuse patient.[facility] CenterIn the event this information is protected by the Federal Confidentiality of Alcohol and Drug Abuse Patient Records regulations: The Federal rules restrict any use of the information to criminally investigate or prosecute any alcohol or drug abuse patient.[facility] CenterIn the event this information is protected by the Federal Confidentiality of Alcohol and Drug Abuse Patient Records regulations: The Federal rules restrict any use of the information to criminally investigate or prosecute any alcohol or drug abuse patient.[facility] CenterIn the event this information is protected by the Federal Confidentiality of Alcohol and Drug Abuse Patient Records regulations: The Federal rules restrict any use of the information to criminally investigate or prosecute any alcohol or drug abuse patient.[facility] CenterIn the event this information is protected by the Federal Confidentiality of Alcohol and Drug Abuse Patient Records regulations: The Federal rules restrict any use of the information to criminally investigate or prosecute any alcohol or drug abuse patient.[facility] CenterIn the event this information is protected by the Federal Confidentiality of Alcohol and Drug Abuse Patient Records regulations: The Federal rules restrict any use of the information to criminally investigate or prosecute any alcohol or drug abuse patient.[facility] CenterIn the event this information is protected by the Federal Confidentiality of Alcohol and Drug Abuse Patient Records regulations: The Federal rules restrict any use of the information to criminally investigate or prosecute any alcohol or drug abuse patient.[facility] CenterIn the event this information is protected by the Federal Confidentiality of Alcohol and Drug Abuse Patient Records regulations: The Federal rules restrict any use of the information to criminally investigate or prosecute any alcohol or drug abuse patient.[facility] CenterIn the event this information is protected by the Federal Confidentiality of Alcohol and Drug Abuse Patient Records regulations: The Federal rules restrict any use of the information to criminally investigate or prosecute any alcohol or drug abuse patient.[facility] CenterIn the event this information is protected by the Federal Confidentiality of Alcohol and Drug Abuse Patient Records regulations: The Federal rules restrict any use of the information to criminally investigate or prosecute any alcohol or drug abuse patient.[facility] CenterIn the event this information is protected by the Federal Confidentiality of Alcohol and Drug Abuse Patient Records regulations: The Federal rules restrict any use of the information to criminally investigate or prosecute any alcohol or drug abuse patient.[facility] CenterIn the event this information is protected by the Federal Confidentiality of Alcohol and Drug Abuse Patient Records regulations: The Federal rules restrict any use of the information to criminally investigate or prosecute any alcohol or drug abuse patient.[facility] CenterIn the event this information is protected by the Federal Confidentiality of Alcohol and Drug Abuse Patient Records regulations: The Federal rules restrict any use of the information to criminally investigate or prosecute any alcohol or drug abuse patient.[facility] CenterIn the event this information is protected by the Federal Confidentiality of Alcohol and Drug Abuse Patient Records regulations: The Federal rules restrict any use of the information to criminally investigate or prosecute any alcohol or drug abuse patient.[facility] CenterIn the event this information is protected by the Federal Confidentiality of Alcohol and Drug Abuse Patient Records regulations: The Federal rules restrict any use of the information to criminally investigate or prosecute any alcohol or drug abuse patient.[facility] CenterIn the event this information is protected by the Federal Confidentiality of Alcohol and Drug Abuse Patient Records regulations: The Federal rules restrict any use of the information to criminally investigate or prosecute any alcohol or drug abuse patient.[facility] CenterIn the event this information is protected by the Federal Confidentiality of Alcohol and Drug Abuse Patient Records regulations: The Federal rules restrict any use of the information to criminally investigate or prosecute any alcohol or drug abuse patient.[facility] CenterIn the event this information is protected by the Federal Confidentiality of Alcohol and Drug Abuse Patient Records regulations: The Federal rules restrict any use of the information to criminally investigate or prosecute any alcohol or drug abuse patient.[facility] CenterIn the event this information is protected by the Federal Confidentiality of Alcohol and Drug Abuse Patient Records regulations: The Federal rules restrict any use of the information to criminally investigate or prosecute any alcohol or drug abuse patient.[facility] CenterIn the event this information is protected by the Federal Confidentiality of Alcohol and Drug Abuse Patient Records regulations: The Federal rules restrict any use of the information to criminally investigate or prosecute any alcohol or drug abuse patient.[facility] CenterIn the event this information is protected by the Federal Confidentiality of Alcohol and Drug Abuse Patient Records regulations: The Federal rules restrict any use of the information to criminally investigate or prosecute any alcohol or drug abuse patient.[facility] CenterIn the event this information is protected by the Federal Confidentiality of Alcohol and Drug Abuse Patient Records regulations: The Federal rules restrict any use of the information to criminally investigate or prosecute any alcohol or drug abuse patient.[facility] CenterIn the event this information is protected by the Federal Confidentiality of Alcohol and Drug Abuse Patient Records regulations: The Federal rules restrict any use of the information to criminally investigate or prosecute any alcohol or drug abuse patient.[facility] CenterIn the event this information is protected by the Federal Confidentiality of Alcohol and Drug Abuse Patient Records regulations: The Federal rules restrict any use of the information to criminally investigate or prosecute any alcohol or drug abuse patient.[facility] CenterIn the event this information is protected by the Federal Confidentiality of Alcohol and Drug Abuse Patient Records regulations: The Federal rules restrict any use of the information to criminally investigate or prosecute any alcohol or drug abuse patient.[facility] CenterIn the event this information is protected by the Federal Confidentiality of Alcohol and Drug Abuse Patient Records regulations: The Federal rules restrict any use of the information to criminally investigate or prosecute any alcohol or drug abuse patient.[facility] CenterIn the event this information is protected by the Federal Confidentiality of Alcohol and Drug Abuse Patient Records regulations: The Federal rules restrict any use of the information to criminally investigate or prosecute any alcohol or drug abuse patient.[facility] CenterIn the event this information is protected by the Federal Confidentiality of Alcohol and Drug Abuse Patient Records regulations: The Federal rules restrict any use of the information to criminally investigate or prosecute any alcohol or drug abuse patient.[facility] CenterIn the event this information is protected by the Federal Confidentiality of Alcohol and Drug Abuse Patient Records regulations: The Federal rules restrict any use of the information to criminally investigate or prosecute any alcohol or drug abuse patient.[facility] CenterIn the event this information is protected by the Federal Confidentiality of Alcohol and Drug Abuse Patient Records regulations: The Federal rules restrict any use of the information to criminally investigate or prosecute any alcohol or drug abuse patient.[facility] CenterIn the event this information is protected by the Federal Confidentiality of Alcohol and Drug Abuse Patient Records regulations: The Federal rules restrict any use of the information to criminally investigate or prosecute any alcohol or drug abuse patient.[facility] CenterIn the event this information is protected by the Federal Confidentiality of Alcohol and Drug Abuse Patient Records regulations: The Federal rules restrict any use of the information to criminally investigate or prosecute any alcohol or drug abuse patient.[facility] CenterIn the event this information is protected by the Federal Confidentiality of Alcohol and Drug Abuse Patient Records regulations: The Federal rules restrict any use of the information to criminally investigate or prosecute any alcohol or drug abuse patient.[facility] CenterIn the event this information is protected by the Federal Confidentiality of Alcohol and Drug Abuse Patient Records regulations: The Federal rules restrict any use of the information to criminally investigate or prosecute any alcohol or drug abuse patient.[facility] CenterIn the event this information is protected by the Federal Confidentiality of Alcohol and Drug Abuse Patient Records regulations: The Federal rules restrict any use of the information to criminally investigate or prosecute any alcohol or drug abuse patient.[facility] CenterIn the event this information is protected by the Federal Confidentiality of Alcohol and Drug Abuse Patient Records regulations: The Federal rules restrict any use of the information to criminally investigate or prosecute any alcohol or drug abuse patient.[facility] CenterIn the event this information is protected by the Federal Confidentiality of Alcohol and Drug Abuse Patient Records regulations: The Federal rules restrict any use of the information to criminally investigate or prosecute any alcohol or drug abuse patient.[facility] CenterIn the event this information is protected by the Federal Confidentiality of Alcohol and Drug Abuse Patient Records regulations: The Federal rules restrict any use of the information to criminally investigate or prosecute any alcohol or drug abuse patient.[facility] CenterIn the event this information is protected by the Federal Confidentiality of Alcohol and Drug Abuse Patient Records regulations: The Federal rules restrict any use of the information to criminally investigate or prosecute any alcohol or drug abuse patient.[facility] CenterIn the event this information is protected by the Federal Confidentiality of Alcohol and Drug Abuse Patient Records regulations: The Federal rules restrict any use of the information to criminally investigate or prosecute any alcohol or drug abuse patient.[facility] Care Teams (unrecognized sec tion and content) Sulfuric Acid Plant Supervisor Relationship Specialty Start Date End Date Robles Goldsmith DO [address] [place] [address] Referring Obstetrics 10/13/22 Sulfuric Acid Plant Supervisor Relationship Specialty Start Date End Date Robles Goldsmith DO [address] [place] [address] Referring Obstetrics 10/13/22 Sulfuric Acid Plant Supervisor Relationship Specialty Start Date End Date Robles Goldsmith, DO [address] [place] [address] Referring Obstetrics 10/13/22 Sulfuric Acid Plant Supervisor Relationship Specialty Start Date End Date Robles Goldsmith, DO [address] [place] [address] Referring Obstetrics 10/13/22 Sulfuric Acid Plant Supervisor Relationship Specialty Start Date End Date Robles Goldsmith, DO [address] [place] [address] Referring Obstetrics 10/13/22 Sulfuric Acid Plant Supervisor Relationship Specialty Start Date End Date Robles Goldsmith, DO [address] [place] [address] Referring Obstetrics 10/13/22 Sulfuric Acid Plant Supervisor Relationship Specialty Start Date End Date Robles Goldsmith, DO [address] [place] [address] Referring Obstetrics 10/13/22 Sulfuric Acid Plant Supervisor Relationship Specialty Start Date End Date Robles Goldsmith, DO [address] [place] [address] Referring Obstetrics 10/13/22 Sulfuric Acid Plant Supervisor Relationship Specialty Start Date End Date Robles Goldsmith, DO [address] [place] [address] Referring Obstetrics 10/13/22 Sulfuric Acid Plant Supervisor Relationship Specialty Start Date End Date Robles Goldsmith, DO [address] [place] [address] Referring Obstetrics 10/13/22 Sulfuric Acid Plant Supervisor Relationship Specialty Start Date End Date Robles Goldsmith, [address] [place] [address] Referring Obstetrics 10/13/22 Sulfuric Acid Plant Supervisor Relationship Specialty Start Date End Date Robles Goldsmith, [address] [place] [address] Referring Obstetrics 10/13/22 Sulfuric Acid Plant Supervisor Relationship Specialty Start Date End Date Robles Goldsmith, [address] [place] [address] Referring Obstetrics 10/13/22 Sulfuric Acid Plant Supervisor Relationship Specialty Start Date End Date Robles Goldsmith, [address] [place] [address] Referring Obstetrics 10/13/22 Sulfuric Acid Plant Supervisor Relationship Specialty Start Date End Date Robles Goldsmith, [address] [place] [address] Referring Obstetrics 10/13/22 Sulfuric Acid Plant Supervisor Relationship Specialty Start Date End Date Robles Goldsmith, [address] [place] [address] Referring Obstetrics 10/13/22 Sulfuric Acid Plant Supervisor Relationship Specialty Start Date End Date Robles Goldsmith, [address] [place] [address] Referring Obstetrics 10/13/22 Sulfuric Acid Plant Supervisor Relationship Specialty Start Date End Date Robles Goldsmith DO [address] [place] [address] Referring Obstetrics 10/13/22 Sulfuric Acid Plant Supervisor Relationship Specialty Start Date End Date Robles Goldsmith DO [address] [place] [address] Referring Obstetrics 10/13/22 Sulfuric Acid Plant Supervisor Relationship Specialty Start Date End Date Lito Velazquez MD [address] [place] [address] PCP - General Internal Medicine 10/05/22 Sulfuric Acid Plant Supervisor Relationship Specialty Start Date End Date Lito Velazquez MD [address] [place] [address] PCP - General Internal Medicine 10/05/22 Sulfuric Acid Plant Supervisor Relationship Specialty Start Date End Date Lito Velazquez MD [address] [place] [address] PCP - General Internal Medicine 02/14/24 Sulfuric Acid Plant Supervisor Relationship Specialty Start Date End Date Robles Goldsmith, [address] [place] [address] Referring Obstetrics 10/13/22 Sulfuric Acid Plant Supervisor Relationship Specialty Start Date End Date Lito Velazquez MD [address] [place] [address] PCP - General Internal Medicine 10/05/22 Sulfuric Acid Plant Supervisor Relationship Specialty Start Date End Date Robles Goldsmith DO [address] [place] [address] Referring Obstetrics 10/13/22 Sulfuric Acid Plant Supervisor Relationship Specialty Start Date End Date Lito Velazquez MD [address] [place] [address] PCP - General Internal Medicine 10/05/22 Sulfuric Acid Plant Supervisor Relationship Specialty Start Date End Date Lito Velazquez MD [address] [place] [address] PCP - General Internal Medicine 10/05/22 Sulfuric Acid Plant Supervisor Relationship Specialty Start Date End Date Lito Velazquez MD [address] [place] [address] PCP - General Internal Medicine 10/05/22 Sulfuric Acid Plant Supervisor Relationship Specialty Start Date End Date Lito Velazquez MD [address] [place] [address] PCP - General Internal Medicine 10/05/22 Sulfuric Acid Plant Supervisor Relationship Specialty Start Date End Date Lito Velazquez MD [address] [place] [address] PCP - General Internal Medicine 10/05/22 Sulfuric Acid Plant Supervisor Relationship Specialty Start Date End Date Robles Goldsmith DO [address] [place] [address] Referring Obstetrics 10/13/22 [place] [address] [place] [address] Registered Nurse 04/12/24 Sulfuric Acid Plant Supervisor Relationship Specialty Start Date End Date Lito Velazquez MD [address] [place] [address] PCP - General Internal Medicine 10/05/22 Sulfuric Acid Plant Supervisor Relationship Specialty Start Date End Date Lito Velazquez MD [address] [place] [address] PCP - General Internal Medicine 10/05/22 Sulfuric Acid Plant Supervisor Relationship Specialty Start Date End Date Lito Velazquez MD [address] [place] [address] PCP - General Internal Medicine 10/05/22 Sulfuric Acid Plant Supervisor Relationship Specialty Start Date End Date Lito Velazquez MD [address] [place] [address] PCP - General Internal Medicine 10/05/22 Team Status: Active Member Role Status Sean Velazquez MD Primary Care Provider Active Team Status: Inactive Member Role Status Dates Lito Velazquez MD Primary Care Provider Active St art: August 24, 2024 End: August 24, 2024 Jaime Davies RN MSN ANP-C Attending Provider Act tucker Start: August 24, 2024 End: August 24, 2024 Sulfuric Acid Plant Supervisor Relationship Specialty Start Date End Date Robles Goldsmith DO [address] [place] [address] Referring Obstetrics 10/13/22 [place] [address] [facility] [place] [address] Specialty Supplemental Manager 04/12/24 Sulfuric Acid Plant Supervisor Relationship Specialty Start Date End Date Lito Velazquez MD [address] [place] [address] PCP - General Internal Medicine 10/05/22 Sulfuric Acid Plant Supervisor Relationship Specialty Start Date End Date Lito Velazquez MD [address] [place] [address] PCP - General Internal Medicine 10/05/22 Sulfuric Acid Plant Supervisor Relationship Specialty Start Date End Date Lito Velazquez MD [address] [place] [address] PCP - General Internal Medicine 10/05/22 Sulfuric Acid Plant Supervisor Relationship Specialty Start Date End Date Lito Velazquez MD [address] [place] [address] PCP - General Internal Medicine 10/05/22 Sulfuric Acid Plant Supervisor Relationship Specialty Start Date End Date Lito Velazquez MD [address] [place] [address] PCP - General Internal Medicine 10/05/22 Sulfuric Acid Plant Supervisor Relationship Specialty Start Date End Date Robles Goldsmith DO [address] [place] [address] Referring Obstetrics 10/13/22 [place] [address] [place] [address] Specialty Supplemental Manager 04/12/24 Sulfuric Acid Plant Supervisor Relationship Specialty Start Date End Date Ltio Velazquez MD [address] [place] [address] PCP - General Internal Medicine 10/05/22 Sulfuric Acid Plant Supervisor Relationship Specialty Start Date End Date Lito Velazquez MD [address] [place] [address] PCP - General Internal Medicine 10/05/22 Sulfuric Acid Plant Supervisor Relationship Specialty Start Date End Date Lito Velazquez MD [address] [place] [address] PCP - General Internal Medicine 10/05/22 Goals [...] BE BASED ON THE PRIMARY CLINICAL RECORDS. [employer] [facility]. provides no warranty or guarantee of the accuracy or completeness of information in this document.
--- OUTSIDE RECORDS SUMMARY | 2024-10-06 08:21 | XMS_ITS | Encounter Summary ---
Author Organization [facility] Address [address] [place] [address] Care Team Providers Care Ride Mechanic Name Role Phone Omer Velazquez MD Primary Care Provider [phone] Encounter Details Date Type Department Care Team (Late st Contact Info) Description 06/19/2024 Abstract [facility] [address] [place] [address] Saravanan Ahumada, DO [address] [place], [facility] Social History Tobacco Use Types Packs/Day [...] AM EDT Routine [facility] [address] [place] [address] Saravanan Ahumada, DO [address] [place] [address] 07/24/2025 9:15 AM EDT Office Visit [facility] [address] [place] [address] documented as of this encounter Goals Goal Patient Goal Type Associated Problems Recent Progress Patient-Stated? Author Reminders Care Plan OB Reminders No Open Scheduling, Background documented as of this encounter Visit Diagnoses Not on filedocumented in this encounter Additional Health Concerns Active Problems Noted Date Diagnosed Date OB Reminders 04/30/2024 documented as of this encounter Care Teams Ride Mechanic Relationship Specialty Start Date End Date Omer Velazquez MD [address] [place] [address] PCP - General Internal Medicine 10/05/22 documented as of this encounter
--- OUTSIDE RECORDS SUMMARY | 2024-10-06 08:21 | XMS_ITS | Encounter Summary ---
Author Organization [facility] Address [address] [place] [address] Care Team Providers Care Fisher Eel Name Role Phone Robles Goldsmith DO Unavailable [phone] Josefina Harris RN Unavailable [phone] Source Comments In the event this information is protected by the Federal Confidentiality of Alcohol and Drug AbusePatient Records regulations: The Federal rules restrict any use of the information to criminally investigate or prosecute any alcohol or drug abuse patient.[facility] Encounter Details Date Type Department Care Team (Latest Contact Info) Description 11/19/2023 Patient Msg Reproductive Endocrinology Infertility [address] [place] [address] Shaina Parr MD [address] [place], [place] [phone] Appointment Request Social History Tobacco Use Types [...] on filedocumented in this encounter Care Teams Fisher Eel Relationship Specialty Start Date End Date Robles Goldsmith DO [address] [facility] [address] [place] [address] Referring Obstetrics 10/13/22 [place] [address] [place] [address] Specialty Microfilm Processor 04/12/24 documented as of this encounter
--- OUTSIDE RECORDS SUMMARY | 2024-10-06 08:21 | XMS_ITS | Encounter Summary ---
Author Organization [facility] Address [address] [place] [address] Care Team Providers Care Family Program Specialist Name Role Phone Robles Goldsmith Benitez DO Unavailable [phone] Josefina Harris RN Unavailable [phone] Source Comments In the event this information is protected by the Federal Confidentiality of Alcohol and Drug AbusePatient Records regulations: The Federal rules restrict any use of the information to criminally investigate or prosecute any alcohol or drug abuse patient.[facility] Encounter Details Date Type Department Care Team (Late st Contact Info) Description 09/26/2024 Results Follow-Up Endocrinology [address] [place] [address] Mirta Valderrama MD [address] [place] [address] Social History Tobacco Use Types [...] is lower risk 4 12/21/2023 Data from: https://www.neighborhoodatlas.medicine.[facility].edu/. Last address used for calculation [address] [place] [address] 12/21/2023 Comments Yes Sex and Gender Information Value Date Recorded Sex Assigned at Female 01/04/2023 6:38 PM EDT Legal Sex Female 10:39 AM EDT Gender Identity Female 01/04/2023 6:38 PM EDT Sexual Orientation Not on file documented as of this encounter Plan of Treatment Not on file documented as of this encounter Visit Diagnoses Not on filedocumented in this encounter Care Teams Family Program Specialist Relationship Specialty Start Date End Date Robles Goldsmith DO [address] [place] [address] Referring Obstetrics 10/13/22 [place] [address] [place] [address] Specialty Distribution Transformer Assembler 04/12/24 documented as of this encounter
--- OUTSIDE RECORDS SUMMARY | 2024-10-06 08:21 | XMS_ITS | Encounter Summary ---
Author Organization [facility] Address [address] [place] [address] Care Team Providers Care Tow Feeder Name Role Phone Omer Velazquez MD Primary Care Provider [phone] Encounter Details Date Type Department Care Team (Late st Contact Info) Description 08/24/2024 External Result Encounter [facility] External Department Unsolicited Jie Mccarthy, CLOCKSMITH [address] [place] [address] Social History Tobacco Use Types Packs/Day Years [...] OB [address] [place] [address] Saravanan Ahumada, DO [address] [facility] [place] [address] 07/24/2025 9:15 AM EDT Office Visit [facility] [address] [place] [address] documented as of this encounter Goals Goal [...] PM EDT Narrative 08/24/2024 6:36 PM EDT [facility] Main [address] [address] Echocardiogram Signed Patient: Lissa Rivas MR#: [id number] : 1995 Acct:[id number] Age/Sex: 29 / F ADM Date: 08/24/24 Loc: Room: Type: [facility] Attending Dr: Jie Mccarthy RN, MSN, ANP-C Ordering Provider: JIE MCCARTHY RN, MSN Date of Service: 08/24/24/ ECH/ECH echo transthoracic: Palpitations. Murmur. Copies to: MD SAMSON Mckeon MICHELE L RN, MSN Lissa Bowen 12:39 PM Patient Location: EL : [...] Procedure Note Iveth Ding MD - 08/24/2024 [facility] [place] [address] Echocardiogram Signed Patient: Lissa Rivas FMR#: [id number] : 1995Acct:[id number] Age/Sex: Date: 08/24/24 Loc: Room:Type: [facility] Attending Dr: Jie Mccarthy RN, [...] 1239 Signed By: Iveth Ding MD 08/24/24 6757 us Jie Mccarthy CLOCKSMITH CV ECHO PROCEDURES Final Res ult documented in this encounter Visit Diagnoses Not on filedocumented in this encounter Additional Health Concerns Active Problems Noted Date Diagnosed Date OB Reminders 04/30/2024 documented as of this encounter Care Teams Tow Feeder Relationship Specialty Start Date End Date Omer Velazquez MD [address] [place] [address] PCP - General Internal Medicine 10/05/22 documented as of this encounter
--- OUTSIDE RECORDS SUMMARY | 2024-10-06 08:21 | XMS_ITS | Encounter Summary ---
Author Organization [facility] Address [address] [place] [address] Care Team Providers Care Cutting Table Operator Name Role Phone Robles Goldsmith DO Unavailable [phone] Josefina Harris RN Unavailable [phone] Source Comments In the event this information is protected by the Federal Confidentiality of Alcohol and Drug AbusePatient Records regulations: The Federal rules restrict any use of the information to criminally investigate or prosecute any alcohol or drug abuse patient.[facility] Encounter Details Date Type Department Care Team (Latest Contact Info) Description 01/13/2024 Patient Msg Reproductive Endocrinology Infertility [address] [place] [address] Shaina Parr MD [address] [place] [address] Appointment Request Social History Tobacco [...] is lower risk 4 12/21/2023 Data from: https://www.neighborhoodatlas.[facility]/. Last address used for calculation [address] 12/21/2023 Comments No Sex and [...] on filedocumented in this encounter Care Teams Cutting Table Operator Relationship Specialty Start Date End Date Robles Goldsmith DO [address] [place] [address] Referring Obstetrics 10/13/22 [place] [address] [place], [place] [phone] Specialty Footwear Sales Representative 04/12/24 documented as of this encounter
--- OUTSIDE RECORDS SUMMARY | 2024-10-06 08:21 | XMS_ITS | Clinical Summary ---
Author Organization [facility] Address [address] [place] [address] Care Team Providers Care Global Manager Name Role Phone Robles Goldsmith Benitez DO Unavailable Josefina Harris RN Unavailable [phone] Allergies No known active allergies Medications [...] Team Description 09/26/2024 Results Follow-Up Endocrinology [address] [place] [address] Mirta Valderrama MD 09/11/2024 9:00 AM EDT [facility] Endocrinology [address] [place] [address] Mirta Valderrama MD Monoallelic mutation of SDHA gene (Primary Dx); Gestational diabetes mellitus (GDM) in third trimester, gestational diabetes method of control unspecified (HCC) 09/11/2024 Travel 09/05/2024 1:45 PM EDT Office Visit Otolarynogology [address] [place] [address] Franklin Laboy MD Monoallelic mutation of SDHA [...] is lower risk 4 12/21/2023 Data from: https://www.neighborhoodatlas.medicine.[facility].edu/. Last address used for calculation [address] [place] [address] Rd 12/21/2023 Comments Yes Sex and Gender [...] - 67 pg/mL 09/19/2024 2:41 PM EDT [facility] Comment: Reference Ranges: Hypertensive adult > or = 18 yrs old: 12-72 pg/mL Normotensive adult > or = 18 yrs old: 12-67 pg/mL Normotensive children < 18 yrs old: 10-95 pg/mL Normetanephrine, Plasma 56 18 - 101 pg/mL 09/19/2024 2:41 PM EDT [facility] Comment: Reference Ranges: Hypertensive adult > [...] 12:19 PM EDT 09/04/2024 12:19 PM EDT [facility] - 09/19/2024 2:41 PM EDT Plasma Free Metanephrine test performed by Liquid Chromatography Tandem Mass Spectrometry (LC/MS/MS). Results obtained with different methods or kits cannot be used interchangeably. This test was developed, and its performance characteristics determined by the [facility] Department of Pathology and Laboratory Medicine. It has not been cleared or approved by the FDA. The [facility] Department of Pathology and Laboratory Medicine is regulated under CLIA as qualified to perform high- complexity testing. This test is used for clinical purposes. It should not be regarded as investigational or for research. us Mirta Valderrama MD LABORATORY Final Result [facility] [address] [place] [address], * HIV 1/2 COMBO WITH REFLEX TO DIFFERENTIATION (09/13/2023 8:52 AM EDT) HIV 12 Combo (Ag/Ab) Nonreactive Nonreactive 09/13/2023 9:15 PM EDT [facility] HIV-1/2 AB (Confirmatory) 09/13/2023 9:15 PM EDT [facility] Comment:Test not indicated. HIV Interpretation 09/13/2023 9:15 PM EDT [facility] Comment: No evidence of HIV-1 or HIV-2 infection. Should recent infection be suspected, repeat testing may be considered 2-3 weeks after this draw. [place] Rev. Code 3701.243(E): This information has been [...] EDT 09/13/2023 8:52 AM EDT Haritha Casiano APRN.[facility] Final R esult Performing Organization Address City/[facility]/ZIP Co de Phone Number [facility] [place] [address], * HEPATITIS C ANTIBODY IA WITH CONFIRMATION (09/13/2023 8:52 AM EDT) Hep C Antibody IA Negative Negative 09/13/2023 9:06 PM EDT [facility] Comment:The result suggests no evidence of active infection with Hepatitis C virus. Should recent infection be suspected, repeat testing may be considered 4-6 weeks after this draw. Blood BLOOD SPECIMEN / Unknown Venipuncture / Unknown 09/13/2023 8:52 AM EDT 09/13/2023 8:52 AM EDT Haritha Casiano APRN.[facility]INESIOLOG[employer] PROFESSOR LABORATORY Final R esult Performing Organization Address City/[facility]/ZIP Co de Phone Number [facility] [address] [place] [address], from Last 3 Months or Most Recently Relevant to Health Maintenance Insurance [address] [place] [address] [employer] [facility] PPO Care Teams Global Manager Relationship Specialty Start Date End Date Robles Goldsmtih DO [address] [place] [address] Referring Obstetrics 10/13/22 Josefina Harris, ARIC [address] [place] [address] Specialty Plastics Patternmaker 04/12/24
--- OUTSIDE RECORDS SUMMARY | 2024-10-06 08:21 | XMS_ITS | Encounter Summary ---
Author Organization [facility] Address [address] [place] [address] Care Team Providers Care Surveillance Monitor Name Role Phone Robles Goldsmith DO Unavailable [phone] Josefina Harris RN Unavailable [phone] Source Comments In the event this information is protected by the Federal Confidentiality of Alcohol and Drug AbusePatient Records regulations: The Federal rules restrict any use of the information to criminally investigate or prosecute any alcohol or drug abuse patient.[facility] Encounter Details Date Type Department Care Team (Late st Contact Info) Description 2024 Patient Msg Reproductive Endocrinology Infertility [address] [place], [place] [id number] Haritha Casiano APRN.AQUACULTURE FARMER [address] [place] [place] [address] Congratulations!!! Social History Tobacco Use Types Packs/Day [...] is lower risk 4 12/21/2023 Data from: https://www.neighborhoodatlas.[facility].edu/. Last address used for calculation [address] 12/21/2023 Comments Yes Sex and Gender Information Value Date Recorded Sex Assigned at Female 01/04/2023 6:38 PM EDT Legal Sex Female 10:39 AM EDT Gender Identity Female 01/04/2023 6:38 PM EDT Sexual Orientation Not on file documented as of this encounter Plan of Treatment Not on file documented as of this encounter Visit Diagnoses Not on filedocumented in this encounter Care Teams Surveillance Monitor Relationship Specialty Start Date End Date Robles Goldsmith DO [address] [place] [address] Referring Obstetrics 10/13/22 [place] [address] [address] [place], [place] [id number] Specialty Medical Records Field Technician 04/12/24 documented as of this encounter
--- OUTSIDE RECORDS SUMMARY | 2024-10-06 08:21 | XMS_ITS | Encounter Summary ---
Author Organization [facility] Address [address] [place] [address] Care Team Providers Care Ldr Nurse Name Role Phone Robles Goldsmith DO Unavailable [phone] Josefina Harris RN Unavailable [phone] Source Comments In the event this information is protected by the Federal Confidentiality of Alcohol and Drug AbusePatient Records regulations: The Federal rules restrict any use of the information to criminally investigate or prosecute any alcohol or drug abuse patient.[facility] Encounter Details Date Type Department Care Team (Late st Contact Info) Description 07/21/2023 Get Medical Advice [facility] [address] [place], [place] [id number] [place], [place] [address] [place] [address] referral for genetics testing Social [...] on filedocumented in this encounter Care Teams Ldr Nurse Relationship Specialty Start Date End Date Robles Goldsmith DO [address] [address] Referring Obstetrics 10/13/22 [place] [address] [place] [address] Specialty Sales Representative Marine [employer] 04/12/24 documented as of this encounter
--- OUTSIDE RECORDS SUMMARY | 2024-10-06 08:21 | XMS_ITS | Encounter Summary ---
Author Organization [facility] Address [address] [place] [id number] Care Team Providers Care Pipeline Engineer Name Role Phone Robles Goldsmith DO Unavailable [phone] Josefina Harris RN Unavailable [phone] Source Comments In the event this information is protected by the Federal Confidentiality of Alcohol and Drug AbusePatient Records regulations: The Federal rules restrict any use of the information to criminally investigate or prosecute any alcohol or drug abuse patient.[facility] Encounter Details Date Type Department Care Team (Late st Contact Info) Description 06/18/2023 Patient [facility] [address] [place] [address] Fina Davalos, [address] [address] Appointment scheduling Social History Tobacco [...] on filedocumented in this encounter Care Teams Pipeline Engineer Relationship Specialty Start Date End Date Robles Goldsmith DO [address] [facility] [address] [place] [address] Referring Obstetrics 10/13/22 [place] [address] [place] [address] Specialty Shell Freezing Machine Operator 04/12/24 documented as of this encounter
--- OUTSIDE RECORDS SUMMARY | 2024-10-06 08:21 | XMS_ITS | Encounter Summary ---
Author Organization [facility] Address [address] [place] [place] [address] Care Team Providers Care Circuit Tester Name Role Phone Omer Velazquez MD Primary Care Provider [phone] Encounter Details Date Type Department Care Team (Late st Contact Info) Description 05/19/2024 Telephone [facility] [email or web address] [place] [address] Gaye Hollis LPN [address] [id number] Social History Tobacco Use Types Packs/Day Years [...] AM EDT Routine [facility] [address] [facility] [place] [address] Saravanan Ahumada, DO [address] [facility] [address] [place] [address] 07/24/2025 9:15 AM EDT Office Visit [facility] [address] [place] [address] Scheduled Orders Name Type Priority Associated Diagnoses [...] documented as of this encounter Care Teams Circuit Tester Relationship Specialty Start Date End Date Omer Velazquez MD [address] [place] [address] PCP - General Internal Medicine 10/05/22 documented as of this encounter
--- OUTSIDE RECORDS SUMMARY | 2024-10-06 08:21 | XMS_ITS | Encounter Summary ---
Author Organization [facility] Address [address] [place] [address] Care Team Providers Care Job Setter Name Role Phone Omer Velazquez MD Primary Care Provider [phone] Encounter Details Date Type Department Care Team (Late st Contact Info) Description 06/07/2024 Abstract [facility] [address] [place] [address] Saravanan Ahumada, DO [address] [place], [facility] Social History Tobacco Use Types Packs/Day [...] Routine [facility] BCP OB [address] [place] [address] Saravanan Ahumada, DO [address] [facility] [place] [address] 07/24/2025 9:15 AM EDT Office Visit [facility] [address] [place] [address] documented as of this encounter Goals Goal Patient Goal Type Associated Problems Recent Progress Patient-Stated? Author Reminders Care Plan OB Reminders No Open Scheduling, Background documented as of this encounter Visit Diagnoses Not on filedocumented in this encounter Additional Health Concerns Active Problems Noted Date Diagnosed Date OB Reminders 04/30/2024 documented as of this encounter Care Teams Job Setter Relationship Specialty Start Date End Date Omer Velazquez MD [address] [place] [address] PCP - General Internal Medicine 10/05/22 documented as of this encounter
--- OUTSIDE RECORDS SUMMARY | 2024-10-06 08:21 | XMS_ITS | Encounter Summary ---
Author Organization [facility] Address [address] [place] [address] Care Team Providers Care Director Of Customer Service Name Role Phone Robles Goldsmith DO Unavailable [phone] Josefina Harris RN Unavailable [phone] Source Comments In the event this information is protected by the Federal Confidentiality of Alcohol and Drug AbusePatient Records regulations: The Federal rules restrict any use of the information to criminally investigate or prosecute any alcohol or drug abuse patient.[facility] Encounter Details Date Type Department Care Team (Late st Contact Info) Description 02/04/2023 Patient Msg Reproductive Endocrinology Infertility [address] [place] [address] Haritha Casiano APRN.WEIGHT TESTER [address] [place] [address] Next steps Social History Tobacco Use Types [...] filedocumented in this encounter Care Teams Director Of Customer Service Relationship Specialty Start Date End Date Robles Goldsmith DO [address] [facility] [address] [place] [address] Referring Obstetrics 10/13/22 [place] [address] [place] [address] Specialty Verse Writer 04/12/24 documented as of this encounter
--- OUTSIDE RECORDS SUMMARY | 2024-10-06 08:21 | XMS_ITS | Encounter Summary ---
Author Organization [facility] tem Address [id number] [address] [place] [address] Care Team Providers Care Fork Lift Technician Name Role Phone Unavailable Primary Care Provider Unavailabl e Encounter Details Date Type Department Care Team (Late st Contact Info) Description 10/04/2024 Telephone Maternal- Medicine at [facility] [address] [place] [address] Aranza Beltran, RN Social History Tobacco Use [...] Telephone Encounter - Aranza Beltran RN - 10/04/2024 10:52 AM EDT Called pt payam her know that Ruthann Miller reviewed her dexcom and did not want to make any changes this week. We discussed her putting in notes when her wake up time and fasting number is so we canbetter identify what her fastings are doing. We will pull her report again next week and pt will put in her fasting times and blood sugars so it comes out in her report. documented in this encounter Plan of Treatment Upcoming Encounters Date Type Department Care Team (Late st Contact Info) Description 10/11/2024 2:00 PM EDT Office Visit Maternal- Medicine at [facility] [address] [place] [address] Siria Rebolledo, DEBBIE-JORDAN [address] [place] [address] 10/16/2024 2:00 PM EDT Office Visit Maternal- Medicine at [facility] [address] [facility] [place] [address] Vy Pemberton MD [address] [address] documented as of this encounter Visit Diagnoses Not on filedocumented in this encounter
--- OUTSIDE RECORDS SUMMARY | 2024-10-06 08:21 | XMS_ITS | Encounter Summary ---
Author Organization [facility] Address [address] [place] [address] Care Team Providers Care Production Technologist Name Role Phone Omer Velazquez MD Primary Care Provider [phone] Encounter Details Date Type Department Care Team (Late st Contact Info) Description 09/25/2024 Telephone [facility] [address] [place] [address] Saravanan Ahumada, DO [address] [place], [facility]11 Social History Tobacco Use Types [...] [address] [facility] [place] [address] Saravanan Ahumada DO [address] [facility] [place] [address] 07/24/2025 9:15 AM EDT Office Visit [facility] [address] [place] [address] documented as of this encounter Goals Goal Patient Goal Type Associated Problems Recent Progress Patient-Stated? Author Reminders Care Plan OB Reminders No Open Scheduling, Background documented as of this encounter Visit Diagnoses Not on filedocumented in this encounter Additional Health Concerns Active Problems Noted Date Diagnosed Date OB Reminders 04/30/2024 documented as of this encounter Care Teams Production Technologist Relationship Specialty Start Date End Date Omer Velazquez MD [address] [place] [address] PCP - General Internal Medicine 10/05/22 documented as of this encounter
--- OUTSIDE RECORDS SUMMARY | 2024-10-06 08:21 | XMS_ITS | Clinical Summary ---
Author Organization [employer] [facility] tem Address [id number] [address] [place] [address] Care Team Providers Care Tag Machine Operator Name Role Phone Unavailable Primary Care Provider Unavailabl e Allergies No known active allergies Medications [id number] ic acid ( 19) 29 mg iron- [...] each nostril in the morning. 025 Discontinued(Charlie mcaias Stopped On Own) letrozole (FEMARA) 2.5 mg chemo tablet Take 1 tablet by mouth daily 025 Discontinued progesterone (PROMETRIUM) 200 mg capsule Take 1 capsule (200 mg total) by mouth in the morning. 025 Discontinued( erapy completed) medroxyPROGEST ERone (PROVERA) 10 mg tablet Take 1 tablet (10 mg total) by mouth in the morning. 025 Discontinued( erapy completed) insulin glargine (LANTUS SOLOSTAR U-100 INSULIN) 100 [...] Encounters Date Type Department Care Team Description 10/04/2024 Telephone Maternal- Medicine at [facility] [address] [place] [address] Aranza Beltran, ARIC 09/20/2024 11:00 AM EDT Telemedicine Maternal- Medicine at [facility] [address] [place] [address] Siria Rebolledo, OUTSIDE LABORER-JORDAN Insulin controlled gestational diabetes mellitus (GDM) in third trimester (Primary Dx); Gestational diabetes requiring insulin 09/20/2024 Travel 09/18/2024 Orders Only Maternal- Medicine at [place] [address] [place] [address] Corby Rose, OSEAS Gestational diabetes requiring insulin; Elevated blood pressure affecting , antepartum; Insulin controlled gestational diabetes mellitus (GDM) in third trimester; Abnormal liver enzymes 09/14/2024 Orders Only Maternal- Medicine at [place] [address] [place] [address] Torrie Posada, ARIC 09/12/2024 10:00 AM EDT Office Visit Maternal- Medicine at [place] [address] [place] [address] Ruthann Miller, PARalph Insulin controlled gestational diabetes mellitus (GDM) in third trimester; Abnormal liver enzymes; Abnormal genetic test; Gestational diabetes requiring insulin; Elevated blood pressure affecting , antepartum 09/12/2024 Documentation Maternal- Medicine at [facility] [address] [place] [address] Ruthann Miller PA-C 09/12/2024 Travel 09/06/2024 Orders Only Maternal- Medicine at [facility] [address] [place] [address] Yesi Meade, OUTSIDE LABORER-[facility] 09/05/2024 Telephone Maternal- Medicine at [facility] [address] [place] [address] Aranza Beltran RN 09/05/2024 Orders Only Maternal- Medicine at [facility] [address] [place] [address] Jackson Cruz MD 08/31/2024 1:30 PM EDT Support Visit Maternal- Medicine at [facility] [address] [place] [address] Cristiana Zuñiga, RN Nereyda Bishop LD Gestational diabetes mellitus (GDM) in third trimester, gestational diabetes method of control unspecified (Primary Dx) 08/31/2024 Travel 08/30/2024 Orders Only Maternal- Medicine at [facility] [address] [place] [address] Ref Prov, Not In System 08/30/2024 Abstract Maternal- Medicine at [facility] [address] [place] [address] External, Scanning Provider from Last 3 Months [...] PM EDT Office Visit Maternal- Medicine at [facility] [address] [facility] [place] [address] Siria Rebolledo, OUTSIDE LABORER-SEMICONDUCTOR WAFERS ETCHER STRIPPER [address] [place] [address] 10/16/2024 2:00 PM EDT Office Visit Maternal- Medicine at [facility] [address] [place] [address] Vy Pemberton MD [address] [facility] [address] [address] Health Maintenance Due Date Last Done Comments [...] Miller PA-C LAB BLOOD ORDERABLES Final Result Performing Organization Address City/[facility]/ZIP Co de Phone Number MANUALLY TRANSCRIBED RESULTS * Glucose random or fasting- POCT (08/31/2024) External Glucose Fasting Or Random (Fbs) 99 MANUALLY TRANSCRIBED RESULTS Blood Venous blood / Unknown 08/31/2024 us Jackson Cruz MD LAB BLOOD ORDERABLES Final Re sult Performing Organization Address City/[facility]/ZIP Co de Phone Number MANUALLY TRANSCRIBED RESULTS * Glucose 1h post 50g load (08/23/2024) Glucose, 1 hr PP 50GM dose 181 MANUALLY TRANSCRIBED RESULTS Blood Venous blood / Unknown us Not In System Ref Prov LAB BLOOD ORDERABLES Breanna l Result Performing Organization Address City/[facility] Co de Phone Number MANUALLY TRANSCRIBED RESULTS from Last [address] [place] [address] [facility]
--- OUTSIDE RECORDS SUMMARY | 2024-10-06 08:21 | XMS_ITS | Encounter Summary ---
Author Organization [facility] Address [address] [place] [address] Care Team Providers Care Pipeline Inspector Name Role Phone Omer Velazquez MD Primary Care Provider [phone] Encounter Details Date Type Department Care Team (Late st Contact Info) Description 06/19/2024 Abstract [facility] BCP OB [address] [place] [address] Saravanan Ahumada, DO [address] [place], [facility] Social [...] OB [address] [facility] [place] [address] Saravanan Ahumada, DO [address] [facility] [place] [address] 07/24/2025 9:15 AM EDT Office Visit [facility] [address] [place] [address] documented as of this encounter Goals Goal Patient Goal Type Associated Problems Recent Progress Patient-Stated? Author Reminders Care Plan OB Reminders No Open Scheduling, Background documented as of this encounter Visit Diagnoses Not on filedocumented in this encounter Additional Health Concerns Active Problems Noted Date Diagnosed Date OB Reminders 04/30/2024 documented as of this encounter Care Teams Pipeline Inspector Relationship Specialty Start Date End Date Omer Velazquez MD [address] [place] [address] PCP - General Internal Medicine 10/05/22 documented as of this encounter
--- OUTSIDE RECORDS SUMMARY | 2024-10-06 08:21 | XMS_ITS | Encounter Summary ---
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 [...] questions or tofollow up. I am at [phone]. Thank you. FYI documented in this encounter Plan of Treatment Upcoming Encounters Date Type Department Care Team (Late st Contact Info) Description 10/09/2024 9:00 AM EDT Routine [facility] BCP OB [address] [place] [address] Saravanan Ahumada, DO [address] [facility] [place] [address] 07/24/2025 9:15 AM EDT Office Visit [facility] [address] [place] [address] documented as of this encounter Goals Goal Patient Goal Type Associated Problems Recent Progress Patient-Stated? Author Reminders Care Plan OB Reminders No Open Scheduling, Background documented as of this encounter Visit Diagnoses Not on filedocumented in this encounter Additional Health Concerns Active Problems Noted Date Diagnosed Date OB Reminders 04/30/2024 documented as of this encounter Care Teams Grounds Manager Relationship Specialty Start Date End Date Omer Velazquez MD [address] [facility] [address] [place] [address] PCP - General Internal Medicine 10/05/22 documented as of this encounter
--- OUTSIDE RECORDS SUMMARY | 2024-10-06 08:21 | XMS_ITS | Encounter Summary ---
Author Organization [facility] Address [address] [place] [address] Care Team Providers Care Jack Spooler Tender Name Role Phone Omer Velazquez MD Primary Care Provider [phone] Encounter Details Date Type Department Care Team (Late st Contact Info) Description 05/23/2024 Abstract [facility] OB [address] [facility] [address] Kayla Ashley LPN Social History Tobacco [...] Routine [facility] BCP OB [address] [facility] [address] Saravanan Ahumada, [address] [facility] [place] [address] 07/24/2025 9:15 AM EDT Office Visit [facility] [address] [place] [address] documented as of this encounter Goals Goal Patient Goal Type Associated Problems Recent Progress Patient-Stated? Author Reminders Care Plan OB Reminders No Open Scheduling, Background documented as of this encounter Visit Diagnoses Not on filedocumented in this encounter Additional Health Concerns Active Problems Noted Date Diagnosed Date OB Reminders 04/30/2024 documented as of this encounter Care Teams Jack Spooler Tender Relationship Specialty Start Date End Date Omer Velazquez MD [address] [place] [address] PCP - General Internal Medicine 10/05/22 documented as of this encounter
--- OUTSIDE RECORDS SUMMARY | 2024-10-06 08:21 | XMS_ITS | Encounter Summary ---
Author Organization [facility] Address [address] [place] [address] Care Team Providers Care Bottle Capper Name Role Phone Robles Goldsmith DO Unavailable [phone] Josefina Harris RN Unavailable [phone] Source Comments In the event this information is protected by the Federal Confidentiality of Alcohol and Drug AbusePatient Records regulations: The Federal rules restrict any use of the information to criminally investigate or prosecute any alcohol or drug abuse patient.[facility] Encounter Details Date Type Department Care Team (Latest Contact Info) Description 07/15/2023 Patient Msg Reproductive Endocrinology Infertility [address] [place], [place] [id number] Provider, Ccf confidential appointment on 08/08 with [...] on filedocumented in this encounter Care Teams Bottle Capper Relationship Specialty Start Date End Date Robles Goldsmith DO [address] [address] Referring Obstetrics 10/13/22 Josefina Harris, ARIC [address] [place] [address] Specialty Warehouse Material Handler 04/12/24 documented as of this encounter
--- OUTSIDE RECORDS SUMMARY | 2024-10-06 08:22 | XMS_ITS | Encounter Summary ---
Author Organization [facility] Address [address] [place] [address] Care Team Providers Care Php Wordpress Developer Name Role Phone Robles Goldsmith DO Unavailable [phone] Josefina Harris RN Unavailable [phone] Source Comments In the event this information is protected by the Federal Confidentiality of Alcohol and Drug AbusePatient Records regulations: The Federal rules restrict any use of the information to criminally investigate or prosecute any alcohol or drug abuse patient.[facility] Encounter Details Date Type Department Care Team (Late st Contact Info) Description 01/05/2023 Patient Msg Reproductive Endocrinology Infertility [address] [place], [place] [id number] Provider, Alli Received Voicemail Social History Tobacco [...] on filedocumented in this encounter Care Teams Php Wordpress Developer Relationship Specialty Start Date End Date Robles Goldsmith DO [address] [facility] [address] [place] [address] Referring Obstetrics 10/13/22 [place] [address] [place] [address] Specialty Sebd Teacher 04/12/24 documented as of this encounter
--- OUTSIDE RECORDS SUMMARY | 2024-10-06 08:22 | XMS_ITS | Encounter Summary ---
Author Organization [facility] Address [address] [place] [address] Care Team Providers Care Metal Container Maker Name Role Phone Omer Velazquez MD Primary Care Provider [phone] Encounter Details Date Type Department Care Team (Late st Contact Info) Description 06/27/2024 Orders Only [facility] [address] [facility] [place] [id number] Symone Hunter [place] [address] [place] [address] Social History Tobacco Use Types Packs/Day Years [...] AM EDT Routine [facility] [address] [facility] [place] [id number] Saravanan Ahumada, DO [address] [facility] [place] [address] 07/24/2025 9:15 AM EDT Office Visit [facility] [address] [place] [phone] documented as of this encounter Goals Goal [...] documented as of this encounter Care Teams Metal Container Maker Relationship Specialty Start Date End Date Omer Velazquez MD [address] [place] [address] PCP - General Internal Medicine 10/05/22 documented as of this encounter
--- OUTSIDE RECORDS SUMMARY | 2024-10-06 08:22 | XMS_ITS | Encounter Summary ---
Author Organization [facility] Address [address] [place] [address] Care Team Providers Care Router Operator Radial Name Role Phone Omer Velazquez MD Primary Care Provider [phone] Encounter Details Date Type Department Care Team (Late st Contact Info) Description 05/01/2024 Abstract [facility] [address] [place] [address] Saravanan Ahumada, DO [address] [place], [facility] Social History Tobacco Use Types Packs/Day Years [...] OB [address] [facility] [place] [address] Saravanan Ahumada, DO [address] [facility] [place] [address] 07/24/2025 9:15 AM EDT Office Visit [facility] [address] [place] [phone] documented as of this encounter Goals Goal Patient Goal Type Associated Problems Recent Progress Patient-Stated? Author Reminders Care Plan OB Reminders No Open Scheduling, Background documented as of this encounter Visit Diagnoses Not on filedocumented in this encounter Additional Health Concerns Active Problems Noted Date Diagnosed Date OB Reminders 04/30/2024 documented as of this encounter Care Teams Router Operator Radial Relationship Specialty Start Date End Date Omer Velazquez MD [address] [place] [address] PCP - General Internal Medicine 10/05/22 documented as of this encounter
--- OUTSIDE RECORDS SUMMARY | 2024-10-06 08:22 | XMS_ITS | Encounter Summary ---
Author Organization [facility] Address [address] [place] [address] Care Team Providers Care Drywall Finishing Foreman Name Role Phone Omer Velazquez MD Primary Care Provider [phone] Encounter Details Date Type Department Care Team (Late st Contact Info) Description 10/05/2022 Abstract [facility] [address] [facility] [address] [place] [phone] Robles Goldsmith, DO [address] [facility] [address] [place] [address] Social History Tobacco Use Types Packs/Day Years [...] EDT Routine [facility] [address] [facility] [facility] [place] [phone] Saravanan Ahumada, DO [address] [place], [place] [id number] 07/24/2025 9:15 AM EDT Office Visit [facility] [address] [place] [address] documented as of this encounter Visit Diagnoses Not on filedocumented in this encounter Care Teams Drywall Finishing Foreman Relationship Specialty Start Date End Date Omer Velazquez MD [address] [place] [address] PCP - General Internal Medicine 10/05/22 documented as of this encounter
--- OUTSIDE RECORDS SUMMARY | 2024-10-06 08:22 | XMS_ITS | Encounter Summary ---
Author Organization [facility] Address [address] [place] [address] Care Team Providers Care Machine Shop Inspector Name Role Phone Omer Velazquez MD Primary Care Provider [phone] Encounter Details Date Type Department Care Team (Late st Contact Info) Description 05/01/2024 Abstract [facility] [address] [place] [address] Saravaann Ahumada, DO [address] [place] [place], [facility] Social History Tobacco Use Types Packs/Day [...] OB [address] [facility] [place] [address] Saravanan Ahumada, DO [address] [facility] [place] [address] 07/24/2025 9:15 AM EDT Office Visit [facility] [address] [place] [phone] documented as of this encounter Goals Goal Patient Goal Type Associated Problems Recent Progress Patient-Stated? Author Reminders Care Plan OB Reminders No Open Scheduling, Background documented as of this encounter Visit Diagnoses Not on filedocumented in this encounter Additional Health Concerns Active Problems Noted Date Diagnosed Date OB Reminders 04/30/2024 documented as of this encounter Care Teams Machine Shop Inspector Relationship Specialty Start Date End Date Omer Velazquez MD [address] [place] [address] PCP - General Internal Medicine 10/05/22 documented as of this encounter
--- OUTSIDE RECORDS SUMMARY | 2024-10-06 08:22 | XMS_ITS | Encounter Summary ---
Author Organization [facility] Address [address] [place] [address] Care Team Providers Care Social Media Analyst Name Role Phone Robles Goldsmith DO Unavailable [phone] Josefina Harris RN Unavailable [phone] Source Comments In the event this information is protected by the Federal Confidentiality of Alcohol and Drug AbusePatient Records regulations: The Federal rules restrict any use of the information to criminally investigate or prosecute any alcohol or drug abuse patient.[facility] Encounter Details Date Type Department Care Team (Late st Contact Info) Description 08/12/2023 Patient [facility] -[address] [place] [id number] Cee Palafox RPh At your next appointment, choose [facility]. Social History Tobacco Use [...] on filedocumented in this encounter Care Teams Social Media Analyst Relationship Specialty Start Date End Date Robles Goldsmith DO [address] [facility] [address] [place] [address] Referring Obstetrics 10/13/22 [place] [address] [place] [address] Specialty Research Associate Quality Control Qc 04/12/24 documented as of this encounter
--- OUTSIDE RECORDS SUMMARY | 2024-10-06 08:22 | XMS_ITS | Clinical Summary ---
Author Organization [facility] Address [address] [place] [address] Care Team Providers Care Commercial Technician Name Role Phone Lito Guerrero MD Primary Care Provider [phone] Allergies No known active allergies Medications cholecalciferol [...] evening. Prime with 2 units. 5 Active acyclovir (Zovirax) 400 MG tabletIndication s:Herpes simplex Take 1 tablet (400 mg) by mouth in the morning and 1 tablet (400 mg) before bedtime. 60 tablet 11 5 11/02/19 25 Active Lancets Ultra Thin miscIndications: Gestational diabetes [...] unspecified (HHS-HCC),Elevat ed glucose tolerance test 1 strip by [...] Date Type Department Care Team Description 10/04/2024 Clinisync Result Encounter [facility] External Department Unsolicited Provider, Generic External Data 10/02/2024 11:00 AM EDT Routine [facility] [address] [place] [address] Negar Ahumada DO Herpes simplex (Primary Dx); 33 weeks gestation of ([facility]); Encounter for routine care ([facility]); Third trimester ([facility]) 10/02/2024 10:30 AM EDT Ancillary Procedure [facility] [address] [place] [address] History of gestational diabetes 09/27/2024 Clinisync Result Encounter [facility]OMS External Department Unsolicited Provider, Generic External Data 09/25/2024 1:00 PM EDT Routine [facility] [place] [address] [place] [address] Negar Ahumada DO Third trimester ([facility]); Insulin controlled gestational diabetes mellitus (GDM) during , antepartum ([facility]); 32 weeks gestation of ([facility]) 09/25/2024 Telephone [facility] [address] [place] [address] Negar Ahumada, 09/25/2024 Bamboo flowsheet [facility] [address] [place] [address] Negar Ahumada, 09/20/2024 Telephone [facility] [address] [place] [address] [place], [place] 09/14/2024 Clinisync Result Encounter [facility]OMS External Department Unsolicited Provider, Generic External Data 09/13/2024 11:30 AM EDT Routine [facility] [address] [place] [address] Negar Ahumada DO History of gestational diabetes (Primary Dx); Third trimester ([facility]); 31 weeks gestation of ([facility]) 09/13/2024 Bamboo flowsheet [facility] [address] [place] [address] Negar Ahumada, 09/12/2024 Clinisync Result Encounter [facility] External Department Unsolicited Negar Ahumada, 09/12/20[address] [facility] [address] [place] [address] Gaye HollisLEXII 09/06/2024 1:30 PM EDT Ancillary Procedure [facility] [address] [place] [address] Gestational diabetes mellitus (GDM), antepartum, gestational diabetes method of control unspecified ([facility]) 08/30/2024 11:20 AM EDT Routine [facility] [address] [place] [address] Negar Ahumada, DO 28 weeks gestation of ([facility]); Third trimester ([facility]); Gestational diabetes mellitus (GDM), antepartum, gestational diabetes method of control unspecified ([facility]); Herpes simplex virus type 1 (HSV-1) dermatitis 08/30/2024 Bamboo flowsheet [facility] [address] [place] [phone] Negar Ahumada, 08/25/20[address] [facility] [address] [place] [address] Symone Hunter MA 08/24/2024 External Result Encounter [facility]OM[facility] External Department Unsolicited Jaime Mccarthy NP 08/23/2024 Clinisync Result Encounter [facility]OMS External Department Unsolicited Provider, Generic External Data 08/23/2024 Travel 08/16/2024 8:30 AM EDT Routine [facility] OB [address] [place] [address] [place] [address] Rupal Patel PA Second trimester ([facility]); 26 weeks gestation of ([facility]) 08/16/2024 Bamboo flowsheet [facility] [address] [place] [address] Rupal Patel PA 08/14/2024 Telephone [facility] IM [address] [place] [address] Lito Guerrero MD Med Refill 08/09/2024 Travel 08/07/2024 Clinisync Result Encounter [facility]OMS External Department Unsolicited Provider, Generic External Data 07/18/2024 9:15 AM EDT Office Visit [facility] IM [address] [place] [address] Lito Guerrero MD Annual physical exam (Primary Dx); Hepatic steatosis; Monoallelic mutation of SDHA gene; Polycystic ovaries; Vitamin D deficiency; Palpitations; Murmur 07/18/2024 Travel 07/17/2024 10:40 AM EDT Routine [facility] [address] [place] [address] Negar Ahumada DO Diabetes mellitus screening; Second trimester ([facility]); 22 weeks gestation of ([facility]) 07/17/2024 Bamboo flowsheet [facility] [address] [place] [address] Negar Ahumada DO 07/11/2024 Travel 07/07/[address] [facility] [address] [place] [address] Symone Hunter MA from Last 3 Months Immunizations Immunization Administration Dates Next Due DTP 1995,1995 DTaP, Unspecified 08/10/2000,08/04/1996,03/17/19 96 HPV 9-Valent 08/12/2015,04/10/2015,12/05/2014 Hep B, Adolescent or Pediatric 03/17/1996,1995,1995 HiB, unspecified 08/04/1996, 6,1995,06/07 IPV 08/10/2000 Influenza, seasonal, injecta ble, preservative free 01/30/2015 MMR 05/04/2023,08/10/2000,04/21/1996 Meningococcal MCV4P 08/12/2006 Novel [id number], preservative-free 02/13/2009 OPV 03/17/1996,1995,1995 Tdap 06/26/2022 Varicella [...] Pressure 136/84 10/02/2024 11:12 AM EDT Pulse 90 07/18/2024 9:20 AM EDT Temperature - - Respiratory Rate - - Oxygen Saturation 98% 07/18/2024 9:20 AM EDT Inhaled Oxygen Concentration - - Weight 103 kg (226 lb 6.4 oz) 10/02/2024 11:12 A M EDT Height 160 cm (5' 3 ) 07/18/2024 9:20 AM EDT Body Mass Index 40.1 07/18/2024 9:20 AM EDT Plan of Treatment Upcoming Encounters Date Type Department Care Team (Late st Contact Info) Description 10/09/2024 9:00 AM EDT Routine [facility] [address] [place] [phone] Negar Ahumada, DO [address] [facility] [place] [address] 07/24/2025 9:15 AM EDT Office Visit [facility] [address] [place] [address] Health Maintenance Due Date Last Done Comments Influenza Vaccine (#1) 2024 01/30/2015 Goals Goal Patient Goal Type Associated Problems Recent Progress Patient-Stated? Author Reminders Care Plan OB Reminders No Open Scheduling, Background Procedures Procedure Name Priority Date/Time Associated Diagnosis Comments US OB BPP W NON-STRESS 10/04/2024 7:13 AM EDT POCT URINALYSIS DIPSTICK Routine 10/02/2024 11:23 AM EDT 33 weeks gestation of ([facility]) Encounter for routine care ([facility]) Third trimester ([facility]) US OB FOLLOW UP TRANSABDOMINAL APPROACH Routine 10/02/2024 11:00 AM EDT History of gestational diabetes US OB BPP W NON-STRESS 09/27/2024 5:08 PM EDT POCT URINALYSIS DIPSTICK Routine 09/25/2024 1:34 PM EDT Third trimester ([facility]) TBH TOTAL PROTEIN 24 HOUR URINE Routine 09/14/2024 9:30 AM EDT POCT URINALYSIS DIPSTICK Routine 09/13/2024 11:56 AM EDT Third trimester ([facility]) MHPT FIBRINOGEN Routine 09/12/2024 5:24 PM EDT [...] Routine 5:24 PM EDT TBH UA (CLEAN/CATCH) SHAREPOINT CONSULTANT/MICRO IF IND. Routine 09/12/2024 4:30 PM EDT US OB FOLLOW UP TRANSABDOMINAL APPROACH Routine 09/06/2024 1:55 PM EDT Gestational diabetes mellitus (GDM), antepartum, gestational diabetes method of control unspecified ([facility]) TRANSTHORACIC ECHO (TTE) COMPLETE 08/24/2024 12:39 PM EDT GLUCOSE 1 HOUR Routine 08/23/2024 10:49 AM EDT ALL CBC WITH AUTO DIFF Routine 10:49 AM EDT POCT URINALYSIS DIPSTICK Routine 08/16/2024 8:45 AM EDT Second trimester ([facility]) US OB INCOMPLETE ANATOMY 08/07/2024 9:48 AM EDT POCT URINALYSIS DIPSTICK Routine 07/17/2024 11:08 AM EDT 22 weeks gestation of ([facility]) from Last 3 Months Results * US OB BPP W NON-STRESS (10/04/2024 7:13 AM EDT) Only the most recent of2 resultswithin the time period is included. Anatomical Region Laterality Modality Other 10/04/2024 7:13 AM EDT Narrative 10/04/2024 7:16 [place] [address] Ultrasound Report Signed Patient: LISSA ROJAS MR#: [id number] : 1995 Acct:[id number] Age/Sex: 29 / F ADM Date: 10/03/24 Loc: US Attending Dr: Negar Ahumada D.O. Ordering Physician: Negar Ahumada D.O. Date of Service: 10/03/24 Procedure(s): US OB BPP w non-stress Accession Number(s): [id number] cc: Negar Ahumada D.O.; [address]IT[address] [place] [address] Patient Name: LISSA ROJAS MRN: [id number]:[id number] date: 1995 Sex: F Assigned Patient Location: US Current Patient Location: Accession/Order Number: [id number] Exam Date: 10/04/2024 07:11 Report Date: 10/04/2024 07:13 At the request of: NEGAR AHUMADA DO [...] Gage M.D. 10/04/2024 7:13 AM Dictation Location: [place] [address] Electronically authenticated by: [id number] Y Date: 10/04/2024 07:13 Dictated By: Paula Gage M.D. Signed By: 10/04/24715 DD/ 2 TD/TT: Print Decorator: Procedure Note Radiology, Radiologist, - 10/04/2024 [place] [address] Ultrasound Report Signed Patient: LISSA ROJAS R#: [id number] : 1995Acct:[id number] Age/Sex: 29 / FADM Date: 10/03/24 Loc: US Attending Dr: Negar Ahumada D.O. Ordering Physician: Negar Ahumada D.O. Date of Service: 10/03/24 Procedure(s): US OB BPP w non-stress Accession Number(s): [id number] cc: Negar Ahumada D.O.; LITO GUERRERO [place] [id number] Patient Name: LISSA ROJAS MRN: [id number] date: 1995 Sex: F Assigned Patient Location: US Current Patient Location: Accession/Order Number: [id number] Exam Date: 10/04/2024 07:11 Report Date: 10/04/2024 07:13 At the request of: NEGAR AHUMADA DO Procedure: US OB BPP w non-stress BIOPHYSICAL PROFILE: CLINICAL INFORMATION: HISTORY OF GESTATIONAL DIABETES Z86.32 COMPARISON: 09/27/2024 There is a single live intrauterine gestation in cephalic presentation.The reported gestational age is 33 weeks 2 days. The heart ratemeasures 145 beats per minute. A nuchal cord is suspected. FINDINGS: TONE: 1 or more episodes of activity extension and flexion of extremity or opening and closing of the hand [Y] 2/2 GROSS BODY MOVEMENTS: 3 or more discrete body or limb movements [Y] 2/2 BREATHING MOVEMENTS: 1 or more episodes of breathing lastingat least 30 seconds [Y] 2/2 RAKESH: A single deepest vertical pocket of amniotic fluid greater than 2 cm [Y] 2/2 RAKESH: 16.1 cm. This is in upper normal range. Total score: 8/8 US/US OB BPP w non-stress IMPRESSION: NORMAL BIOPHYSICAL PROFILE. SUSPECTED NUCHAL CORD. Impression dictated by: Paula Gage M.D. 10/04/2024 7:13 AM Dictation Location: [place] [address] Electronically authenticated by: [id number] Y Date: 507:13 Dictated By: Paula Gage M.D. Signed By:10/04/24 0716 DD/ 0713 TD/TT: Print Decorator: us Generic External Data Provider [facility] Final Result * (ABNORMAL) POCT urinalysis dipstick manually resulted (10/02/2024 11:23 AM EDT) Only the most recent of5 resultswithin the time period is included. Color, [...] Positive Urine 10/02/2024 11:2 3 AM EDT us Negar Zita DO POINT OF CARE TEST ENTER/EDIT OR DERABLES Final Result * US OB follow up transabdominal approach (10/02/2024 11:00 AM EDT) Only the most recent of2 resultswithin the time period is included. Anatomical Region Laterality Modality Body Ultrasound 10/03/2024 [...] OB US PROCEDURES Final Re sult * (ABNORMAL) TBH TOTAL PROTEIN 24 HOUR URINE (09/14/2024 9:30 AM EDT) TOTAL PROTEIN URINE RANDOM 16.8(H) <=11.9 mg/dL TBH TOTAL VOLUME 24 HOUR URINE 2,500 mL/24hr TBH TBH TOTAL PROTEIN 24 HOUR URINE 420.0(H) <=149.1 mg/24hr TBH 09/14/2024 9:30 AM EDT 09/14/2024 10:23 AM EDT Narrative [facility] - 09/14/2024 11:15 AM EDT us Negar Zita DO [facility] Final Result [facility] * (ABNORMAL) TBH CREATININE (09/12/2024 5:24 PM EDT) CREATININE 0.44(L) 0.55 - 1.02 mg/dL TBH TBH EGFR-AF SERBIAN >60 >=60 mL/min/1.7 3m 2 TBH TBH EGFR-NON AF SERBIAN >60 >=60 mL/min/1.7 3m 2 TBH 09/12/2024 5:24 PM EDT 09/12/2024 5:33 PM EDT Narrative [facility]IN[facility] - 09/12/2024 5:42 PM EDT Negar Luo DO CLINISYNC Final Result Performing Organization Address [facility]/ZIP Co de Phone Number [facility] * [facility] PROTHROMBIN TIME INR W/O COUM (09/12/2024 5:24 PM EDT) PROTHROMBIN TIME 9.9 9.0 - 11.6 sec TBH TBH INR 0.93 TBH Comment: DESIRED INR: 2.0-3.0 CONDITIONS NOT LISTED BELOW 2.5-3.5 FOR PROSTHETIC HEART VALVE REPLACEMENT 2.5-3.5 RECURRENT THROMBOSIS 09/12/2024 5:24 PM EDT 09/12/2024 5:33 PM EDT Narrative CLINISYNC - 09/12/2024 6:00 PM EDT Negar Luo DO CLINISYNC Final Result [facility] * (ABNORMAL) MHPT FIBRINOGEN (09/12/2024 5:24 PM EDT) FIBRINOGEN 425(H) 200 - 400 mg/dL TBH 09/12/2024 5:24 PM EDT 09/12/2024 5:33 PM EDT Narrative [facility]IN[facility] - 09/12/2024 6:00 PM EDT Negar Zita DO CLINISYNC Final Result [facility] TB * (ABNORMAL) [facility] AST (09/12/2024 5:24 PM EDT) ASPARTATE AMINO TRANSFERASE 11(L) 15 - 37 U/L TB 09/12/2024 5:24 PM EDT 09/12/2024 5:33 PM EDT Narrative CLINISYNC - 09/12/2024 5:42 PM EDT Negar Zita DO CLINISYNC Final Result [facility] TB * [facility] APTT (09/12/2024 5:24 PM EDT) PARTIAL THROMBOPLASTIN TIME 25.2 22.3 - 36.2 sec TB 09/12/2024 5:24 PM EDT 09/12/2024 5:33 PM EDT Narrative CLINISYNC - 09/12/2024 6:00 PM EDT Negar Zita DO CLINISYNC Final Result [facility] TB * [facility] ALT (09/12/2024 5:24 PM EDT) ALANINE AMINOTRANSFERASE 23 14 - 59 U/L TB 09/12/2024 5:24 PM EDT 09/12/2024 5:33 PM EDT Narrative CLINISYNC - 09/12/2024 5:42 PM EDT Negar Zita DO CLINISYNC Final Result [facility] TB * ALL URIC ACID (09/12/2024 5:24 PM EDT) URIC ACID 3.4 2.6 - 6.0 mg/dL TB 09/12/2024 5:24 PM EDT 09/12/2024 5:33 PM EDT Narrative CLINISYNC - 09/12/2024 5:42 PM EDT us Negar Zita DO CLINISYNC Final Result [facility] TB * (ABNORMAL) ALL CBC WITH AUTO DIFF [...] Narrative CLINISYNC - 09/12/2024 5:33 PM EDT Negar Zita DO CLINISYNC Final Result [facility] TB * ALL BUN (09/12/2024 5:24 PM EDT) BLOOD UREA NITROGEN 8.0 7.0 - 18.0 mg/dL TBH 09/12/2024 5:24 PM EDT 09/12/2024 5:33 PM EDT Narrative CLINISYNC - 09/12/2024 5:42 PM EDT Negar Zita DO CLINISYNC Final Result [facility] TB * (ABNORMAL) TBH UA (CLEAN/CATCH) SHAREPOINT CONSULTANT/MICRO IF IND. (09/12/2024 4:30 PM EDT) COLOR [...] - 09/12/2024 5:12 PM EDT us Negar Ahumada DO CLINISYNC Final Result [facility] * Transthoracic echo (TTE) complete (08/24/2024 12:39 PM EDT) Anatomical Region Laterality Modality Heart Ultrasound 08/24/2024 12:3 9 PM EDT Narrative 08/24/2024 6:[address] [facility] [address] Echocardiogram Signed Patient: Lissa Rojas MR#: [id number] : 1995 Acct:[id number] Age/Sex: 29 / F ADM Date: 08/24/24 Loc: Room: Type: [facility] Attending Dr: Jaime Mccarthy RN, MSN, [...] 1239 Signed By: Iveth Ding MD 08/24/24 3188 Procedure Note Iveth Ding MD - 08/24/2024 [facility] [address] Echocardiogram Signed Patient: Lissa Rojas FMR#: [id number] : 1995Acct:[id number] Age/Sex: Date: 08/24/24 Loc: EL Room:Type: [facility] Attending Dr: Jaime Mccarthy RN, MSN, [...] Signed By: Iveth Ding MD 08/24/24 1835 us Jaime Mccarthy SOIL FERTILITY SPECIALIST CV ECHO PROCEDURES Final Res ult * (ABNORMAL) GLUCOSE 1 HOUR (08/23/2024 10:49 AM EDT) GLUCOSE 1 HOUR 181(H) <130 mg/dL TBH 08/23/2024 10:4 9 AM EDT 08/23/2024 10:51 AM EDT Narrative [facility] - 08/23/2024 11:33 AM EDT us Negar Zita DO LAB BLOOD ORDERABLES Final Resul t [facility] * US OB INCOMPLETE ANATOMY (08/07/2024 9:48 AM EDT) Anatomical Region Laterality Modality Other 08/07/2024 9:48 AM EDT Narrative 08/07/2024 9:50 AM EDT [address] [address] Ultrasound Report Signed Patient: LISSA ROJAS MR#: [id number] : 1995 Acct:[id number] Age/Sex: 29 / F ADM Date: 08/04/24 Loc: US Attending Dr: Negar Ahumada D.O. Ordering Physician: Negar Ahumada D.O. Date of Service: 08/04/24 Procedure(s): US OB incomplete anatomy Accession Number(s): [id number] cc: Negar Ahumada D.O.; LITO GUERRERO [place] [address] Patient Name: LISSA ROJAS MRN: [facility]:[id number] date: 1995 Sex: F Assigned Patient Location: US Current Patient Location: Accession/Order Number: [id number] Exam Date: 08/07/2024 09:41 Report Date: 08/07/2024 [...] Gage M.D. 08/07/2024 9:48 AM Dictation Location: [place] [address] Electronically authenticated by: [id number] Y Date: 08/07/2024 09:48 Dictated By: Paula Gage M.D. Signed By: 08/07/2450 DD/ TD/TT: Print Decorator: Procedure Note Radiology, Radiologist, - 08/07/2024 [place] [address] Ultrasound Report Signed Patient: CONSTANTINE ROJAS#: [id number] : 1995Acct:[id number] Age/Sex: 29 / FADM Date: 08/04/24 Loc: US Attending Dr: Negar Ahumada D.O. Ordering Physician: Negar Ahumada D.O. Date of Service: 08/04/24 Procedure(s): US OB incomplete anatomy Accession Number(s): [id number] cc: Negar Ahumada D.O.; LITO GUERRERO [address] [address] Patient Name: LISSA ROJAS MRN: [facility]:[id number] date: 1995 Sex: F Assigned Patient Location: US Current Patient Location: Accession/Order Number: [id number] Exam Date: 08/07/2024 09:41 Report Date: 08/07/2024 [...] Gage M.D. 08/07/2024 9:48 AM Dictation Location: [place] [address] Electronically authenticated by: [id number] Y Date: 9:48 Dictated By: Paula Gage M.D. Signed By:08/07/2450 DD/ 7 TD/TT: Print Decorator: us Generic External Data Provider [facility] Final Result from Last 3 Months Additional Health Concerns Active Problems Noted Date Diagnosed Date OB Reminders 04/30/2024 Insurance [employer] Care Teams Commercial Technician Relationship Specialty Start Date End Date Lito Guerrero MD [address] [place] [address] PCP - General Internal Medicine 10/05/22
--- OUTSIDE RECORDS SUMMARY | 2024-10-06 08:22 | XMS_ITS | Encounter Summary ---
Author Organization [facility] Address [address] [place] [address] Care Team Providers Care Sub Acute Care Nurse Name Role Phone Robles Goldsmith DO Unavailable [phone] Josefina Harris RN Unavailable [phone] Source Comments In the event this information is protected by the Federal Confidentiality of Alcohol and Drug AbusePatient Records regulations: The Federal rules restrict any use of the information to criminally investigate or prosecute any alcohol or drug abuse patient.[facility] Encounter Details Date Type Department Care Team (Late st Contact Info) Description 02/11/2024 Patient Msg Family Medicine [address] [place], [place] [id number] Provider, [facility] Appointment Cancellation Social History Tobacco [...] risk 4 12/21/2023 Data from: https://www.neighborhoodatlas.medicine.[facility].edu/. Last address used for calculation [address] [place] [address] 12/21/2023 Comments No Sex and Gender Information Value Date Recorded Sex Assigned at Female 01/04/2023 6:38 PM EDT Legal Sex Female 10:39 AM EDT Gender Identity Female 01/04/2023 6:38 PM EDT Sexual Orientation Not on file documented as of this encounter Plan of Treatment Not on file documented as of this encounter Visit Diagnoses Not on filedocumented in this encounter Care Teams Sub Acute Care Nurse Relationship Specialty Start Date End Date Robles Goldsmith DO [address] [facility] [address] [place] [address] Referring Obstetrics 10/13/22 [place] [address] [place] [address] Specialty [employer] Vice President 04/12/24 documented as of this encounter
--- OUTSIDE RECORDS SUMMARY | 2024-10-06 08:22 | XMS_ITS | Encounter Summary ---
Author Organization [facility] Address [address] [place] [address] Care Team Providers Care Trawl Net Maker Name Role Phone Lito Guerrero MD Primary Care Provider [phone] Encounter Details Date Type Department Care Team (Late Contact Info) Description 10/04/2024 Clinisync Result Encounter [facility] External [...] BCP OB [address] [address] Saravanan Ahumada DO [address] [facility] [place] [address] 07/24/2025 9:15 AM EDT Office Visit [facility] [address] [place] [phone] documented as of this encounter Goals Goal Patient Goal Type Associated Problems Recent Progress Patient-Stated? Author Reminders Care Plan OB Reminders No Open Scheduling, Background documented as of this encounter Procedures Procedure Name Priority Date/Time Associated Diagnosis Comments US OB BPP W NON-STRESS 10/04/2024 7:13 AM EDT documented in this encounter Results * US OB BPP W NON-STRESS (10/04/2024 7:13 AM EDT) Anatomical Region Laterality Modality Other 10/04/2024 7:13 AM EDT Narrative 10/04/2024 7:16 [place] [address] Ultrasound Report Signed Patient: LITO ROJAS MR#: [id number] : 1995 Acct:[id number] Age/Sex: 29 / F ADM Date: 10/03/24 Loc: US Attending Dr: Saravanan Ahumada D.O. Ordering Physician: Saravanan Ahumada D.O. Date of Service: 10/03/24 Procedure(s): US OB BPP w non-stress Accession Number(s): [id number] cc: Saravanan Ahuamda D.O.; LITO GUERRERO [address] [address] Patient Name: LITO ROJAS MRN: [id number]:[id number] date: 1995 Sex: F Assigned Patient Location: US Current Patient Location: Accession/Order Number: [id number] Exam Date: 10/04/2024 07:11 Report Date: 10/04/2024 [...] Gage M.D. 10/04/2024 7:13 AM Dictation Location: [place] [address] Electronically authenticated by: [id number] Y Date: 10/04/2024 07:13 Dictated By: Paula Gage M.D. Signed By: 10/04/24715 DD/ 2 TD/TT: Optical Sales Associate: Procedure Note Radiology, Radiologist, - 10/04/2024 [place] [address] Ultrasound Report Signed Patient: LITO ROJAS FMR#: [id number] : 1995Acct:[id number] Age/Sex: 29 / FADM Date: 10/03/24 Loc: US Attending Dr: Saravanan Ahumada D.O. Ordering Physician: Saravanan Ahumada D.O. Date of Service: 10/03/24 Procedure(s): US OB BPP w non-stress Accession Number(s): [id number] cc: Saravanan Ahumada D.O.; LITO GUERRERO [place] [id number] Patient Name: LITO ROJAS MRN: [id number] date: 1995 Sex: F Assigned Patient Location: Current Patient Location: Accession/Order Number: [id number] Exam Date: 10/04/2024 07:11 Report Date: 10/04/2024 [...] Gage M.D. 10/04/2024 7:13 AM Dictation Location: [place] [address] Electronically authenticated by: [id number] Y Date: 507:13 Dictated By: Paula Gage M.D. Signed By:10/04/24715 DD/ 2 TD/TT: Optical Sales Associate: us Generic External Data Provider [facility] Final Result documented in this encounter Visit Diagnoses Not on filedocumented in this encounter Additional Health Concerns Active Problems Noted Date Diagnosed Date OB Reminders 04/30/2024 documented as of this encounter Care Teams Trawl Net Maker Relationship Specialty Start Date End Date Lito Guerrero MD [address] [place] [id number] PCP - General Internal Medicine 10/05/22 documented as of this encounter
--- OUTSIDE RECORDS SUMMARY | 2024-10-06 08:22 | XMS_ITS | Encounter Summary ---
Author Organization [facility] Address [address] [place] [address] Care Team Providers Care Rock Picker Name Role Phone Robles Goldsmith DO Unavailable + [phone] Josefina Harris RN Unavailable [phone] Source Comments In the event this information is protected by the Federal Confidentiality of Alcohol and Drug AbusePatient Records regulations: The Federal rules restrict any use of the information to criminally investigate or prosecute any alcohol or drug abuse patient.[facility] Encounter Details Date Type Department Care Team (Late st Contact Info) Description 09/10/2023 Patient Msg Reproductive Endocrinology Infertility [address] [place] [address] Haritha Casiano APRN.RESEARCH DIRECTOR [address] [place] [address] IUI facts Social History Tobacco Use Types [...] on filedocumented in this encounter Care Teams Rock Picker Relationship Specialty Start Date End Date Robles Goldsmith DO [address] [facility] [address] [place] [address] Referring Obstetrics 10/13/22 [place] [address] [place] [address] Specialty Capsule Inspector 04/12/24 documented as of this encounter
--- OUTSIDE RECORDS SUMMARY | 2024-10-06 08:22 | XMS_ITS | Encounter Summary ---
Author Organization [facility] Address [address] [place] [address] Care Team Providers Care Patient Service Representative Name Role Phone Omer Velazquez MD Primary Care Provider [phone] Encounter Details Date Type Department Care Team (Late st Contact Info) Description 05/01/2024 Abstract [facility] OB [address] [place] [address] Saravanan Ahumada, DO [address] [place], [facility] Social History Tobacco Use Types [...] AM EDT Routine [facility] BCP OB [address] [facility] [place] [address] Saravanan Ahumada, DO [address] [facility] [place] [address] 07/24/2025 9:15 AM EDT Office Visit [facility] [address] [place] [address] documented as of this encounter Goals Goal Patient Goal Type Associated Problems Recent Progress Patient-Stated? Author Reminders Care Plan OB Reminders No Open Scheduling, Background documented as of this encounter Visit Diagnoses Not on filedocumented in this encounter Additional Health Concerns Active Problems Noted Date Diagnosed Date OB Reminders 04/30/2024 documented as of this encounter Care Teams Patient Service Representative Relationship Specialty Start Date End Date Omer Velazquez MD [address] [place] [address] PCP - General Internal Medicine 10/05/22 documented as of this encounter
--- OUTSIDE RECORDS SUMMARY | 2024-10-06 08:22 | XMS_ITS | Encounter Summary ---
Author Organization [facility] Address [address] [place] [address] Care Team Providers Care Mold Construction Supervisor Name Role Phone Robles Goldsmith Benitez DO Unavailable [phone] Josefina Harris RN Unavailable [phone] Source Comments In the event this information is protected by the Federal Confidentiality of Alcohol and Drug AbusePatient Records regulations: The Federal rules restrict any use of the information to criminally investigate or prosecute any alcohol or drug abuse patient.[facility] Encounter Details Date Type Department Care Team (Late st Contact Info) Description 09/02/2023 Get Medical Advice Endocrinology [address] [place] [address] Mirta Valderrama MD [address] [place] [address] Follow up questions Social History [...] ovaries documented in this encounter Care Teams Mold Construction Supervisor Relationship Specialty Start Date End Date Robles Goldsmith DO [address] [phone] Referring Obstetrics 10/13/22 [place] [address] [place] [address] Specialty Mat Packer 04/12/24 documented as of this encounter
--- OUTSIDE RECORDS SUMMARY | 2024-10-06 08:22 | XMS_ITS | Encounter Summary ---
Author Organization [facility] Address [address] [place] [address] Care Team Providers Care Foundry Manager Name Role Phone Robles Goldsmith DO Unavailable [phone] Josefina Harris RN Unavailable [phone] Source Comments In the event this information is protected by the Federal Confidentiality of Alcohol and Drug AbusePatient Records regulations: The Federal rules restrict any use of the information to criminally investigate or prosecute any alcohol or drug abuse patient.[facility] Encounter Details Date Type Department Care Team (Late st Contact Info) Description 01/25/2023 Patient Msg Reproductive Endocrinology Infertility [address] [place] [address] Shaina Edge MD [facility] [place] [phone] MyRiad results Social History Tobacco Use Types [...] on filedocumented in this encounter Care Teams Foundry Manager Relationship Specialty Start Date End Date Robles Goldsmith DO [address] [facility] [address] [place] [address] Referring Obstetrics 10/13/22 [place] [address] [place] [address] Specialty Digital Communications Manager 04/12/24 documented as of this encounter
--- OUTSIDE RECORDS SUMMARY | 2024-10-06 08:22 | XMS_ITS | Encounter Summary ---
Author Organization [facility] Address [address] [place] [address] Care Team Providers Care Binder Stripper Hand Name Role Phone Omer Velazquez MD Primary Care Provider [phone] Encounter Details Date Type Department Care Team (Late st Contact Info) Description 07/20/2023 Orders Only [facility] [address] [place] [address] A, Unknown Practice [address] [place], [place] [phone] Social History Tobacco Use Types Packs/Day Years [...] BCP OB [address] [place] [address] Saravanan Ahumada, DO [address] [place], [place] [address] 07/24/2025 9:15 AM EDT Office Visit [facility] [address] [place] [address] documented as of this encounter Procedures Procedure Name Priority Date/Time Associated Diagnosis Comments SCANNED LABS Routine 07/20/2023 2:45 PM EDT documented in this encounter Results * SCANNED LABS (07/20/2023 2:45 PM EDT) us Unknown Practice A LAB CHG PERFORMABLES Final Re sult documented in this encounter Visit Diagnoses Not on filedocumented in this encounter Care Teams Binder Stripper Hand Relationship Specialty Start Date End Date Omer Velazquez MD [address] [place] [address] PCP - General Internal Medicine 10/05/22 documented as of this encounter
--- OUTSIDE RECORDS SUMMARY | 2024-10-06 08:22 | XMS_ITS | Encounter Summary ---
Author Organization [facility] Address [address] [place] [address] Care Team Providers Care Cmv Driver Name Role Phone Robles Goldsmith DO Unavailable + [phone] Josefina Harris RN Unavailable [phone] Source Comments In the event this information is protected by the Federal Confidentiality of Alcohol and Drug AbusePatient Records regulations: The Federal rules restrict any use of the information to criminally investigate or prosecute any alcohol or drug abuse patient.[facility] Encounter Details Date Type Department Care Team (Late st Contact Info) Description 02/17/2024 Patient Msg Reproductive Endocrinology Infertility [address] [place] [address] Shaina Edge MD [address] [place] [phone] PCOS supplements Social History Tobacco Use Types [...] is lower risk 4 12/21/2023 Data from: https://www.neighborhoodatlas.medicine.[facility]/. Last address used for calculation [address] [...] on filedocumented in this encounter Care Teams Cmv Driver Relationship Specialty Start Date End Date Robles Goldsmith DO [address] [facility] [address] [place] [address] Referring Obstetrics 10/13/22 [place] [address] [address] [place], [place] [phone] Specialty Multimedia Specialist 04/12/24 documented as of this encounter
--- OUTSIDE RECORDS SUMMARY | 2024-10-06 08:22 | XMS_ITS | Encounter Summary ---
Author Organization [facility] [employer] Network[employer] [facility] tem Address [id number] [address] [place] [address] Care Team Providers Care Weekend Caregiver Name Role Phone Unavailable Primary Care Provider Unavailabl e Encounter Details Date Type Department Care Team (Late Contact Info) Description 09/14/2024 Orders Only Maternal- Medicine at [facility] [address] [place] [phone] Torrie Posada RN Social History Tobacco Use [...] PM EDT Office Visit Maternal- Medicine at [facility] [address] [place] [phone] Siria Rebolledo, DEBBIE-JORDAN [address] [place] [address] 10/16/2024 2:00 PM EDT Office Visit Maternal- Medicine at [facility] [address] [place] [phone] Vy Pemberton MD [address] [facility], [address] [place] [address] documented as of this encounter Visit Diagnoses Not on filedocumented in this encounter
--- OUTSIDE RECORDS SUMMARY | 2024-10-06 08:22 | XMS_ITS | Encounter Summary ---
Author Organization [facility] Address [address] [place] [address] Care Team Providers Care Sterile Process Tech Name Role Phone Robles Goldsmith DO Unavailable [phone] Josefina Harris RN Unavailable [phone] Source Comments In the event this information is protected by the Federal Confidentiality of Alcohol and Drug AbusePatient Records regulations: The Federal rules restrict any use of the information to criminally investigate or prosecute any alcohol or drug abuse patient.[facility] Encounter Details Date Type Department Care Team (Late st Contact Info) Description 01/13/2023 Patient Msg Reproductive Endocrinology Infertility [address] [place], [place] [phone] Provider, [facility] Bloodwork results Social History Tobacco [...] on filedocumented in this encounter Care Teams Sterile Process Tech Relationship Specialty Start Date End Date Robles Goldsmith DO [address] [facility] [address] [place] [address] Referring Obstetrics 10/13/22 [place] [address] [place] [address] Specialty Director Dietetics Department 04/12/24 documented as of this encounter
--- OUTSIDE RECORDS SUMMARY | 2024-10-06 08:22 | XMS_ITS | Clinical Summary ---
Author Organization [facility] Address [address] [place] [address] Phone Care Team Providers Care Lead Quality Control Technician Name Role Phone Omer Velazquez MD Primary Care Provider [phone] Allergies No known active allergies Medications letrozole [...] Vaccine (1 - season) 2023 Influenza Vaccine (#1) 2024 01/30/2015, 2008 Yearly Adult Physical 02/15/2025 02/15/2024 , 07/13/2023, [...] to complete this topic Insurance [address] [place] [address] [facility] [address] [place] [address] [facility] Care Teams Lead Quality Control Technician Relationship Specialty Start Date End Date Omer Velazquez MD [address] [place] [address] PCP - General Internal Medicine 02/14/24
--- OUTSIDE RECORDS SUMMARY | 2024-10-06 08:22 | XMS_ITS | Encounter Summary ---
Author Organization [facility] Address [address] [place] [address] Care Team Providers Care Bulk Mail Clerk Name Role Phone Omer Velazquez MD Primary Care Provider [phone] Encounter Details Date Type Department Care Team (Late st Contact Info) Description 01/11/2023 Abstract [facility] S[facility] IM [address] [facility] [address] [place] [phone] Omer Velazquez MD [address] [facility] [address] [place] [address] Social History Tobacco Use Types Packs/Day Years [...] OB [address] [facility] [place] [address] Saravanan Ahumada, DO [address] [facility] [place] [address] 07/24/2025 9:15 AM EDT Office Visit [facility] [address] [place] [address] documented as of this encounter Visit Diagnoses Not on filedocumented in this encounter Care Teams Bulk Mail Clerk Relationship Specialty Start Date End Date Omer Velazquez MD [address] [place] [address] PCP - General Internal Medicine 10/05/22 documented as of this encounter
--- OUTSIDE RECORDS SUMMARY | 2024-10-06 08:22 | XMS_ITS | Encounter Summary ---
Author Organization [facility] Address [address] [place] [address] Care Team Providers Care Wild Life Photographer Name Role Phone Robles Goldsmith DO Unavailable + [phone] Josefina Harris RN Unavailable [phone] Source Comments In the event this information is protected by the Federal Confidentiality of Alcohol and Drug AbusePatient Records regulations: The Federal rules restrict any use of the information to criminally investigate or prosecute any alcohol or drug abuse patient.[facility] Encounter Details Date Type Department Care Team (Late st Contact Info) Description 09/10/2023 Patient Msg Reproductive Endocrinology Infertility [address] [place] [address] Haritha Casiano APRN.CATEGORY DEVELOPMENT ANALYST [address] [place] [address] IUI information Social History Tobacco Use Types [...] on filedocumented in this encounter Care Teams Wild Life Photographer Relationship Specialty Start Date End Date Robles Goldsmith DO [address] [facility] [address] [place] [address] Referring Obstetrics 10/13/22 [place] [address] [place] [address] Specialty University Services Program Associate 04/12/24 documented as of this encounter
--- OUTSIDE RECORDS SUMMARY | 2024-10-06 08:22 | XMS_ITS | Encounter Summary ---
Author Organization [facility] Address [address] [place] [address] Care Team Providers Care Consultant Technology Name Role Phone Omer Velazquez MD Primary Care Provider [phone] Encounter Details Date Type Department Care Team (Late st Contact Info) Description 01/13/2023 Orders Only [facility] [address] [place] [address] Shelby Hernandez PA [address] [place] [address] Social History Tobacco Use Types Packs/Day Years [...] AM EDT Routine [facility]CP OB [address] [facility] [place] [address] Saravanan Ahumada, DO [address] [place], [place] [address] 07/24/2025 9:15 AM EDT Office Visit [facility] IM [address] [place] [address] documented as of this encounter Visit Diagnoses Not on filedocumented in this encounter Care Teams Consultant Technology Relationship Specialty Start Date End Date Omer Velazquez MD [address] [place] [address] PCP - General Internal Medicine 10/05/22 documented as of this encounter
--- OUTSIDE RECORDS SUMMARY | 2024-10-06 08:22 | XMS_ITS | Encounter Summary ---
Author Organization [facility] Address [address] [place] [address] Care Team Providers Care Radio Station Audio Engineer Name Role Phone Robles Goldmsith DO Unavailable [phone] Josefina Harris RN Unavailable [phone] Source Comments In the event this information is protected by the Federal Confidentiality of Alcohol and Drug AbusePatient Records regulations: The Federal rules restrict any use of the information to criminally investigate or prosecute any alcohol or drug abuse patient.[facility] Encounter Details Date Type Department Care Team (Late st Contact Info) Description 10/22/2023 Patient Msg Reproductive Endocrinology Infertility [address] [place], [place] [address] Provider, Alli 10/26/23 Social History Tobacco Use [...] on filedocumented in this encounter Care Teams Radio Station Audio Engineer Relationship Specialty Start Date End Date Robles Goldsmith [address] [facility] [address] [place] [address] Referring Obstetrics 10/13/22 [place] [address] [place] [address] Specialty Fashion Consultant Sales 04/12/24 documented as of this encounter
--- OUTSIDE RECORDS SUMMARY | 2024-10-06 08:22 | XMS_ITS | Encounter Summary ---
Author Organization [facility] Address [address] [place] [address] Care Team Providers Care Rn Field Case Manager Name Role Phone Robles Goldsmith DO Unavailable [phone] Josefina Harris RN Unavailable [phone] Source Comments In the event this information is protected by the Federal Confidentiality of Alcohol and Drug AbusePatient Records regulations: The Federal rules restrict any use of the information to criminally investigate or prosecute any alcohol or drug abuse patient.[facility] Encounter Details Date Type Department Care Team (Late st Contact Info) Description 01/20/2023 Get Medical Advice Reproductive Endocrinology Infertility [address] [place] [address] Shaina Edge MD [facility] [place] [phone] ATTN: Domenica Social History Tobacco Use Types [...] on filedocumented in this encounter Care Teams Rn Field Case Manager Relationship Specialty Start Date End Date Robles Goldsmith DO [address] [facility] [address] [place] [address] Referring Obstetrics 10/13/22 [place] [address] [place] [address] Specialty Bag Bleacher 04/12/24 documented as of this encounter
--- OUTSIDE RECORDS SUMMARY | 2024-10-06 08:22 | XMS_ITS | Encounter Summary ---
Author Organization [facility] Address [address] [place] [address] Care Team Providers Care Clin Nurse Name Role Phone Omer Velazquez MD Primary Care Provider [phone] Encounter Details Date Type Department Care Team (Late st Contact Info) Description 01/06/2023 Abstract [facility] SWS OB [address] [facility] 210 [place] [address] Robles Goldsmith, DO [address] [facility] [address] [place] [address] Social History Tobacco Use Types Packs/Day Years [...] Routine NOMS BCP OB [address] [place] [address] Saravanan Ahumada, DO [address] [place], [place] [address] 07/24/2025 9:15 AM EDT Office Visit [facility] [address] [place] [address] documented as of this encounter Visit Diagnoses Not on filedocumented in this encounter Care Teams Clin Nurse Relationship Specialty Start Date End Date Omer Velazquez MD [address] [place] [address] PCP - General Internal Medicine 10/05/22 documented as of this encounter
== END 2024-10-06 09:16 | disposition home or self-care (01) ==
LOC: FBCO 08:19 → FBC 08:27
PROVIDERS: PCP Internal Medicine; Visit Provider Obstetrics & Gynecology
DX: O24.313 Unspecified pre-existing diabetes mellitus in pregnancy, third trimester (principal)
CPT/HCPCS: 59025

== ENCOUNTER 2024-10-10 16:02 | Outpatient (OUT) | payer OTHER, SELFPAY ==
--- NOTE | 2024-10-10 16:06 | US_ITS ---
The [address] [address] Patient Name: LITO ROJAS MRN: [facility]:[id number] date: 1995 Sex: F Assigned Patient Location: Current Patient Location: Accession/Order Number: [id number] Exam Date: 10/11/2024 08:41 Report Date: 10/11/2024 08:42 At the request of: NEGAR GONZALEZ DO Procedure: US OB BPP w non-stress BIOPHYSICAL PROFILE: CLINICAL INFORMATION: HISTORY OF GESTATIONAL DIABETES MELLITUS Z86.32 COMPARISON: 10/03/2024 There is a single live intrauterine gestation in cephalic presentation. The reported gestational age is 34 weeks 2 days. The heart rate measures 150 beats per minute. FINDINGS: TONE: 1 or more episodes of activity extension and flexion of extremity or opening and closing of the hand [Y] 2/2 GROSS BODY MOVEMENTS: 3 or more discrete body or limb movements [Y] 2/2 BREATHING MOVEMENTS: 1 or more episodes of breathing lasting at least 30 seconds [Y] 2/2 RAKESH: A single deepest vertical pocket of amniotic fluid greater than 2 cm [Y] 2/2 RAKESH: 16.0 cm. This is in normal range. Total score: 8 US/ OB BPP w non-stress IMPRESSION: NORMAL BIOPHYSICAL PROFILE Impression dictated by: Paula Gage M.D. 10/11/2024 8:42 AM Dictation Location: [place] [address] Electronically authenticated by: [id number] Y Date: 10/11/2024 08:42
[2024-10-10 16:59] VITALS: BP 131/83; PULSE 86
== END 2024-10-10 17:31 | disposition home or self-care (01) ==
LOC: US 16:02 → FBC 16:52
PROVIDERS: PCP Internal Medicine; Visit Provider Obstetrics & Gynecology
DX: O16.3 Unspecified maternal hypertension, third trimester (principal); Z86.32 Personal history of gestational diabetes; Z3A.34 34 weeks gestation of pregnancy
CPT/HCPCS: 76818

== ENCOUNTER 2024-10-13 09:09 | Outpatient (OUT) | payer OTHER, SELFPAY ==
[2024-10-13 09:18] VITALS: BP 127/80; PULSE 74
== END 2024-10-13 09:50 | disposition home or self-care (01) ==
LOC: FBCO 09:09 → FBC 09:13
PROVIDERS: PCP Internal Medicine; Visit Provider Obstetrics & Gynecology
DX: O24.419 Gestational diabetes mellitus in pregnancy, unspecified control (principal)
CPT/HCPCS: 59025

== ENCOUNTER 2024-10-16 09:38 | Outpatient (OUT) | payer OTHER, SELFPAY ==
[2024-10-16 10:00] LABS: Hematocrit 30.0 % (36.0-48.0); Hemoglobin 10.0 g/dL (12.0-16.0); Immature Granulocytes Abs Auto 0.08 10^3/uL (0.00-0.03); Immature Granulocytes Pct Auto 0.8 % (0.0-0.5); Lymphocytes Absolute Auto 1.9 10^3/uL (1.2-3.8); Mean Corpuscular HGB Conc 33.3 g/dL (29.9-35.2); Mean Corpuscular Hemoglobin 30.2 pg (26.7-34.0); Mean Corpuscular Volume 90.6 fL (81.0-99.0); Platelet Count 215 10^3/uL (150-450); Red Blood Count 3.31 10^6/uL (4.20-5.40); White Blood Count 9.6 10^3/uL (4.0-11.0)
[2024-10-16 10:09] LABS: Partial Thromboplastin Time 25.4 sec (22.3-36.2); Prothrombin Time 9.6 sec (9.0-11.6)
[2024-10-16 10:10] LABS: INR <0.93
[2024-10-16 11:20] LABS: Aspartate Amino Transferase 12 U/L (15-37); Blood Urea Nitrogen 6.0 mg/dL (7.0-18.0); Estimated GFR (African America >60 (>=60 mL/min/1.73m^2); Estimated GFR (Non-African Ame >60 (>=60 mL/min/1.73m^2); Uric Acid 3.5 mg/dL (2.6-6.0)
== END 2024-10-16 09:39 | disposition home or self-care (01) ==
LOC: LAB 09:40
PROVIDERS: PCP Internal Medicine; Visit Provider Nurse Practitioner Family
DX: O13.9 Gestational [pregnancy-induced] hypertension without significant proteinuria, unspecified trimester (principal)
CPT/HCPCS: 36415; 82565; 83615; 84450; 84520; 84550; 85025; 85610; 85730

== ENCOUNTER 2024-10-17 16:04 | Outpatient (OUT) | payer OTHER, SELFPAY ==
--- NOTE | 2024-10-17 16:06 | US_ITS ---
[address] [address] Patient Name: LITO ROJAS MRN: [id number] date: 1995 Sex: F Assigned Patient Location: [facility] Current Patient Location: [facility] Accession/Order Number: [id number] Exam Date: 10/17/2024 16:58 Report Date: 10/17/2024 16:59 At the request of: NEGAR GONZALEZ DO Procedure: US OB BPP w non-stress Ultrasound biophysical profile HISTORY: Gestational diabetes Adequate breathing movement, gross body movement, tone and amniotic fluid volume for total score of 8 out of 8. The amniotic fluid index is 17.6cm within normal limits. The heart rate 144 bpm. US/US OB BPP w non-stress IMPRESSION: Adequate ultrasound biophysical profile Impression dictated by: Kevin Barrett M.D. 10/17/2024 4:59 PM Dictation Location: [facility] Electronically authenticated by: [id number] Y Date: 10/17/2024 16:59
[2024-10-17 16:41] VITALS: BP 126/78; PULSE 83
== END 2024-10-17 17:09 | disposition home or self-care (01) ==
LOC: US 16:04 → FBC 16:05
PROVIDERS: PCP Internal Medicine; Visit Provider Obstetrics & Gynecology
DX: O24.419 Gestational diabetes mellitus in pregnancy, unspecified control (principal); Z3A.35 35 weeks gestation of pregnancy
CPT/HCPCS: 76818

== ENCOUNTER 2024-10-20 09:03 | Outpatient (OUT) | payer OTHER, SELFPAY ==
--- OUTSIDE RECORDS SUMMARY | 2017-11-10 05:30 | XMS_ITS | Continuity of Care Document ---
Author Organization [facility] Address [address] [place] [address] Phone Care Team Providers Care Paper Grader Name Role Phone Lindsey LANIER, Torrie Pena Unavailabl e Allergies, Adverse Reactions, Alerts Substance Reaction Status Criticality No Known Allergies Active No Inform ation Medications Medication Instructions Dosage Effective Dates (start - stop) Status Comments Adipex-P 37.5 mg tablet take 1 tablet by oral route every day before breakfast 37.5 MG - Active Patanol 0.1 % eye drops instill 1 drop by ophthalmic route 2 times every day into affected eye(s) at an interval of 6 to 8 hours - Active Zyrtec 10 mg capsule - Active ProAir HFA 90 mcg/actuation aerosol inhaler inhale 2 puff by inhalation route as needed - Active Procedures Procedure Date OFFICE/OUTPATIENT VISIT, EST OFFICE/OUTPATIENT VISIT, EST OFFICE/OUTPATIENT VISIT, EST OFFICE/OUTPATIENT VISIT, EST IMMUNIZATION ADMIN HPV 9 Valent IMMUNIZATION ADMIN HPV 9 Valent IMMUNIZATION ADMIN HPV 9 Valent IMMUNIZATION ADMIN HPV 9 Valent IMMUNIZATION ADMIN HPV 9 Valent OFFICE/OUTPATIENT VISIT, NEW IMMUNIZATION ADMIN H [place]AP[place] VACC 3 DOSE IM Advance Directives Directive Yes / No Effective Date File Name No Information Encounters Encounter Description Practice Location Reason(s) For Visit Diagnoses Date Provider Providers Copied on Encounter OFFICE/OUTPAT IENT VISIT, [facility], [address] [place], [place], [id number], tel:[phone] [facility] Body mass index (BMI) 31.0-31.9, adultMorbid (severe) obesity due to excess calories Lindsey Brownlee. [address] [place] [address], [id number], [place]. tel:[phone] [facility], [address] [place], [place], [id number], tel:[phone] [facility] Morbid (severe) obesity due to excess caloriesBody mass index (BMI) 31.0-31.9, adult Landon Stafford. [address] [place], [place], [id number], [place]. tel:[phone] OFFICE/OUTPAT IENT VISIT, [facility], [address] [place], [place], [id number], [place] tel:[phone] [facility] adipex # 3 (chief complaint) Body mass index (BMI) 32.0-32.9, adultMorbid (severe) obesity due to excess caloriesBody mass index (BMI) 33.0-33.9, adult Landon Stafford. [address] [place] [address], [id number], [place]. tel:[phone] OFFICE/OUTPAT IENT VISIT, [facility], [address] [place] [address], [id number], [place] tel:[phone] [facility] Adipex (chief complaint) Body mass index (BMI) 34.0-34.9, adultMorbid (severe) obesity due to excess caloriesBody mass index (BMI) 32.0-32.9, adult aLndon Stafford. [address] [place], [place], [id number], [place]. tel:[phone] OFFICE/OUTPAT IENT VISIT, [facility], [address] [place], [place], [id number], [place] tel:[phone] [facility] Body mass index (BMI) 34.0-34.9, adultMorbid (severe) obesity due to excess calories Landon Stafford. [address] [place], [place], [id number], [place]. tel:[phone] [facility], [address] [place] [address], [id number], [place] tel:[phone] [facility] wt loss (chief complaint)a llergies (chief complaint) Abnormal weight gainMorbid (severe) obesity due to excess caloriesBody mass index (BMI) 34.0-34.9, adultAllergy, unspecified, initial encounter Landon Stafford. [address], [place], [id number], [place]. tel:[phone] [facility], [address] [place] [address], [id number], [place] tel:[phone] [facility] No Information Dixon Charles. [address], [place], [id number], [place]. tel:[phone] [facility], [address] [place] [address], [id number], [place] tel:[phone] [facility] No Information Dixon Charles. [address] [place], [place], [id number], [place]. tel:[phone] OFFICE/OUTPAT IENT VISIT, [facility], [address], [place], [id number], [place] tel:[phone] [facility] infected toe (chief complaint)i mmunization (chief complaint) Ingrown nail Landon Stafford. [address] [place] [address], [id number], [place]. tel:[phone] Family History Family Member Type Diagnosis Age At Onset Father Problem (finding) Allergies Father Problem (finding) Heart disease Sister Problem (finding) Alive and well Father Problem (finding) hypercholester olemia in first degree relative Father Problem (finding) hypertension Father Problem (finding) asthma Father Problem (finding) Alive and well Father Problem (finding) Obesity Father Problem (finding) diabetes melli tus in first degree relative Immunizations Vaccine Date Status Comments HPV (9-valent) administered Source: New I mmunization Record Influenza virus vaccine, injectable, quadrivalent, split virus, preservative free, 3 years or older Fluarix, Flulaval or Fluzone Quad refused Source: New Immuniza tion Record HPV (9-valent) administered Source: New I mmunization Record Gardasil 9 administered Source: New Imm unization Record Payers Payer name Insurance type Covered constitution party ID Authoriza tion(s) No Information Social History Type Description Quantity Date Captured Comments Alcohol Use Details No Caffeine Use Details coffee 16 oz per day Tobacco Use Status Never smoked tobacco 2017 Smoking Status Never smoker Non-Smoking Tobacco Use Details : No Details Available : No Details Available Sex Female Sexual Orientation Straight or heterosexual Gender Identity Female Vital Signs Date / Time: Height Weight BMI Pulse Rate Blood Pressure Temperature Respiratory Rate Body Surface Area Head Circumference Head Circ. Percentile Wt./Kavin. Percentile BMI percentile Pulse Ox Inhaled Ox 9:52 AM 64.00 in 83.280 kg (183.60 lbs) 31.5 1 kg/m eter (2) 82 /min 124/78 mm[Hg] 97 % Chief Complaint And Reason For Visit No Information Reason For Referral Reason For Referral No Information Plan Of Treatment Date Type Action Status Goal Dietary management education , guidance, and counseling completed Goal Dietary management education , guidance, and counseling completed Goal Dietary management education , guidance, and counseling completed History Of Present Illness Encounter Date Complaint History Of Prese nt Illness adipex # 3 Patient here for adipex script # 3. Patient is late due to the road closed sign and she went around and there was a train at the opposite end. 194.2 lbs today. Start weight 201.2. Patient walks on the treadmill every day for 30 minutes. Just got back from a 2 week vacation and she states she did not eat well. Gained almost 3 lbs from last month. Lynnette Sands RN Adipex Patient here for Adipex #2, start at 201lb. Patient walks on the treadmill for approx 45 min daily. -Radha SHULTZ wt loss Pt here to discu ss weight loss options. 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 Pt has tried nutrisystem in the past. Pt sees a in [place] for [facility] practice. [place] allergies The patient pres ents with itchy eyes, post nasal drainage, sneezing and watery eyes. Symptoms are constant, moderate and unchanged. The allergic symptoms are worsened by dry air, dust, pets / animals, pollution / exhaust and season change. Additional information: Would like to discuss allergy meds. Takes zyrtec daily. [place]. infected toe Patient here for infected toes. Big toe on left and little toe on right foot. Patient states it has been going on for about a week. Patient states it hurt to walk on it but it has improved. Patient is also wanting Gardisil 9. Patient did have episode yesterday of low fever and vomiting. Patient is feeling better today.No other issues at this time.Meseret Lino. immunization Functional Status Date Functional Assessmen t No Information Instructions Date Instruction Additional Infor lydia Dietary management e ducation, guidance, and counseling Related to Body mass index (BMI) 31.0-31.9, adult Giving encouragement to exercise Related to Body mass index (BMI) 31.0-31.9, adult Weight loss from baseline weight Related to Body mass index (BMI) 31.0-31.9, adult Giving encouragement to exercise Related to Body mass index (BMI) 31.0-31.9, adult Dietary management e ducation, guidance, and counseling Related to Body mass index (BMI) 33.0-33.9, adult Giving encouragement to exercise Related to Body mass index (BMI) 33.0-33.9, adult Dietary management e ducation, guidance, and counseling Related to Body mass index (BMI) 32.0-32.9, adult Giving encouragement to exercise Related to Body mass index (BMI) 32.0-32.9, adult Assessments Type Assessment Date assessment Body mass index (BMI) 31.0-31.9, adult assessment Morbid (severe) obesity due to e xcess calories impression Here for weigh in fo r Zulma was her off month, 1 pound weight lose noted. Encouraged her progressContinue to increase activity and healthy food intakeShe will start month #3 todayNo concerns voiced. F/U with Dr. Navarrete in 30 days, call with any concerns. Patient verbalizes understanding and agrees to treatment plan. Mental Status Date Cognitive Assessment Orientation - [place] ed to time, place, person, situation.Normal Orientation Patient Care Teams Name Effective Dates (start - stop) Status Members No Information
--- OUTSIDE RECORDS SUMMARY | 2024-10-09 09:00 | XMS_ITS | Encounter Summary ---
Author Organization [facility] Address [address] [place] [address] Care Team Providers Care Winding Inspector Name Role Phone Omer Velazquez MD Primary Care Provider [phone] Reason for Visit * Reason Comments Routine Visit Encounter Details Date Type Department Care Team (Late st Contact Info) Description 10/09/2024 9:00 AM EDT Routine [facility]OM[facility] BCP OB [address] [place] [address] Saravanan Ahumada, DO [address] [facility] [place] [address] Third trimester ([facility]); 34 weeks gestation of ([facility]); Herpes simplex virus type 1 (HSV-1) dermatitis; Insulin controlled gestational diabetes mellitus (GDM) during , antepartum ([facility]) Social History Tobacco Use Types Packs/Day Years [...] Sign Reading Time Taken Comments Blood Pressure 136/86 10/09/2024 9:20 AM EDT Pulse - - Temperature - - Respiratory Rate - - Oxygen Saturation - - Inhaled Oxygen Concentration - - Weight 103 kg (227 lb 8 oz) 10/09/2024 9:20 AM E DT Height - - Body Mass Index 40.3 07/18/2024 9:20 AM EDT documented in this encounter Progress Notes * Kayla Ashley, LEXII - 10/09/2024 9:00 AM EDT Reason for Appointment: Patient ID: Lissa Rivas is a 29 y.o. female who presents for Routine Visit Patient presents today for Return OB appointment. MEDICATIONS Current Outpatient Medications Medication Instructions acyclovir (ZOVIRAX) 400 mg, Oral, 2 times daily albuterol HFA (Ventolin HFA) 90 mcg/act inhaler [...] nursing note reviewed. Exam conducted with a burrer operator present. Vitals: Estimated body mass index is 40.3 kg/m?? as calculated from the following: Height as of 07/18/24: 5' 3 . Weight as of this encounter: 227 lb 8 oz. BP: 136/86 Patient's last menstrual period was 02/13/2024 (approximate). ASSESSMENT & PLAN ICD-10-CM 1. Third trimester ([facility]) Z34.93 POCT urinalysis dipstick manually resulted 2. 34 weeks gestation of ([facility]) Z3A.34 3. 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 Insulin controlled gestational diabetes mellitus (GDM) during , antepartum ([facility]) O24.414 Patient presents today for a routine obstetrics appointment. Patient is currently 34w1d with a Estimated Date of Delivery: 11/19/24. Patient believes she may have an ingrown hair on left labia. Pelvic exam revealed hemorrhoid. Ingrown hair has already popped and expelled. Patient to return to clinic in 2 weeks for GBS and routine OB appointment. Discussed BPP and results. Documented by Kayla Ashley LPN on behalf of: Saravanan Ahumada DO documented in this encounter Plan of Treatment Upcoming Encounters Date Type Department Care Team (Late st Contact Info) Description 10/23/2024 1:30 PM EDT Routine [facility] BCP OB [address] [facility] [address] Saravanan Ahumada DO [address] [place] [address] 07/24/2025 9:15 AM EDT Office Visit [facility] [address] [place] [address] documented as of this encounter Goals Goal Patient Goal Type Associated Problems Recent Progress Patient-Stated? Author Reminders Care Plan OB Reminders No Open Scheduling, Background documented as of this encounter Procedures Procedure Name Priority Date/Time Associated Diagnosis Comments POCT URINALYSIS DIPSTICK Routine 10/09/2024 9:27 AM EDT Third trimester ([facility]) documented in this encounter Results * (ABNORMAL) POCT urinalysis dipstick manually resulted (10/09/2024 9:27 AM EDT) Color, UA Yellow Clarity, UA Clear Glucose, UA Negative Negative - 2000(110) ++++ mg/dL Bilirubin, UA Negative Negative - 4(70) +++ mg/dL Ketones, UA Negative Negative - 160(16) ++++ mg/dL Spec Grav, UA 1.010 1 - 1.03 Blood, UA Negative Negative - 50 Jorge Luis/mcL pH, UA 7.5 5 - 9 Protein, UA Negative Negative - 2000(20) ++++ mg/dL Urobilinogen, UA 0.2 0.2 - 12 mg/dL Leukocytes, UA Moderate Negative - 500+++ Flori/mcL Nitrite, UA Negative Negative - Positive Urine 10/09/2024 9:27 AM EDT Saravanan Ahumada DO POINT OF CARE TEST ENTER/EDIT OR DERABLES Final Result documented in this encounter Visit Diagnoses Diagnosis Third trimester ([facility]) state, incidental 34 weeks gestation of ([facility]) Herpes simplex virus type 1 (HSV-1) dermatitis Insulin controlled gestational diabetes mellitus (GDM) during , antepartum ([facility]) documented in this encounter Additional Health Concerns Active Problems Noted Date Diagnosed Date OB Reminders 04/30/2024 documented as of this encounter Care Teams Winding Inspector Relationship Specialty Start Date End Date Omer Velazquez MD [address] [place] [address] PCP - General Internal Medicine 10/05/22 documented as of this encounter
--- OUTSIDE RECORDS SUMMARY | 2024-10-11 14:00 | XMS_ITS | Encounter Summary ---
Author Organization [facility] tem Address [id number] [address] [place] [address] Care Team Providers Care Finishing Machine Tender Name Role Phone Unavailable Primary Care Provider Unavailabl e Reason for Visit * Reason Comments GDMA2 Encounter Details Date Type Department Care Team (Late st Contact Info) Description 10/11/2024 2:00 PM EDT Office Visit Maternal- Medicine at [facility] [address] [place] [phone] Siria Rebolledo, PNEUMATIC TUBE OPERATOR-MANAGER [employer] [address] [place] [address] Insulin controlled gestational diabetes mellitus (GDM) in third trimester (Primary Dx) Social History Tobacco Use Types [...] Sign Reading Time Taken Comments Blood Pressure 127/79 10/11/2024 2:04 PM EDT Pulse 106 10/11/2024 2:04 PM EDT Temperature - - Respiratory Rate - - Oxygen Saturation - - Inhaled Oxygen Concentration - - Weight 103.1 kg (227 lb 6.4 oz) 10/11/2024 2:04 PM EDT Height 160 cm (5' 3 ) 10/11/2024 2:04 PM EDT Body Mass Index 40.28 10/11/2024 2:04 PM EDT documented in this encounter Progress Notes * Haritha Tatum CMA - 10/11/2024 2:00 PM EDT Headache/epigastric pain/blurry vision/swelling? HEADACHES THAT COME AND GO Cramping/contractions? CRAMPING THAT COMES AND GOES AT NIGHT. Spotting or vaginal bleeding? NO Loss or gush of fluid like your water may have broken? NO Recent ER visits or hospitalizations? NO Any concerns that you would like me to mention to the provider today? * CARLOS Ford - 10/11/2024 2:00 PM EDT REASON FOR OFFICE VISIT: 1. GDMA2; A1c 5.4% on 04/21/14 2. 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 Elevated bp 120-130s/70-80s 4. Mild pre-eclampsia HISTORY OF PRESENT ILLNESS: Lissa Rivas is a pleasant 29 y.o. at 34w3d due on Estimated Date of Delivery: 11/19/24. Currently the patient has no complaints. The patient denies KEYS, nausea, vomiting, abdominal pain, vaginal bleeding, contractions, leaking fluid or chest pain. +FM. She is beingfollowed at [facility] due to GDMA2. States she is following meal plan as much as possible and eating evening snack. FBS - 78-96 1 HR Postprandial - less than 140/90 Past Medical History PAST OBSTETRICAL HISTORY: OB History 1 Para Term AB Living SAB IAB Ectopic Multiple Live Births SURGICAL HISTORY: Past Surgical History: Procedure Laterality Date EYE SURGERY ALLERGIES: No Known Allergies CURRENT MEDICATIONS: Current Outpatient Medications: blood-glucose sensor (DEXCOM G7 SENSOR) device, Use to monitor blood glucose. Change every 10 days,Disp: 5 each, Rfl: 10 insulin glargine (LANTUS SOLOSTAR U-100 INSULIN) 100 unit/mL (3 mL) insulin pen, Inject 16 units every evening. Prime with 2 units., Disp: 15 mL, Rfl: 2 [id number]-netpx acid ( 19) 29 mg iron- 1 mg tablet,chewable, Chew 1 tablet and swallow in the morning., Disp: , Rfl: LABS: No results found for: GLUF , MICROALBUR , LDLCALC , CREATININE No results found for: TSH , T3 , TOTALT4 , THYROIDAB No results found for: [id number] No results found for: CREATININE , BUN [...] vaginal bleeding, and vaginal discharge PHYSICAL EXAMINATION: BP 127/79 Pulse 106 Ht 160 cm (5' 3 ) Wt 103.1 kg (227 lb 6.4 oz) LMP104/14/2023 BMI 40.28 kg/m and heart rate present 157. Gravid abdomen, Alert & Oriented. Respirations not labored. DISCUSSION: Glucose control ideal Recommended carbohydrate allocation ranges: 30-45 g for [...] shins, weight gain >4lbs in 1 week SUMMARY/RECOMMENDATION: The following is a summary of our recommendations: 1. Blood work: Recommend Pre-eclampsia BW every 2 weeks Reports negative for protein in urine on 10/09 2. Medication: No changes at this time Other medications as above 3. testing: Twice weekly NST w/ weekly DVP at 32 weeks growth ultrasounds every 4 weeks starting at 28 weeks 4. Delivery timing: Consider planned delivery at 37 wks weeks or before if indicated d/t development of pre-eclampsia with severe feature Use 1/2 dose of insulin the night before her planned delivery (8 units). GDMA2:may monitor patient's BG every 4hrs during [...] developing diabetes later on. 6. Follow-up appointment: I asked her to keep sending values to us weekly by e-mail to: [email or web address] or by fax to: [phone] TIME OF CONSULTATION: 30 minutes with the patient, >50% in discussion and counseling, coordination of care which was [id number], review of records and communication back to referring provider. CARLOS Ford 10/11/24 1444 documented in this encounter Plan of Treatment Upcoming Encounters Date Type Department Care Team (Late st Contact Info) Description 10/23/2024 8:30 AM EDT Office Visit Maternal- Medicine at [facility] [address] [place] [phone] yV Pemberton MD [address], [address] [place] [address] documented as of this encounter Visit Diagnoses Diagnosis Insulin controlled gestational diabetes mellitus (GDM) in third trimester- Primary documented in this encounter
--- OUTSIDE RECORDS SUMMARY | 2024-10-16 09:00 | XMS_ITS | Encounter Summary ---
Author Organization [facility] Address [address] [place] [address] Care Team Providers Care Director Learning Services Name Role Phone Omer Velazquez MD Primary Care Provider [phone] Reason for Visit * Reason Comments Routine Visit Encounter Details Date Type Department Care Team (Late st Contact Info) Description 10/16/2024 9:00 AM EDT Routine [facility] [address] [place] [address] Saravanan Ahumada, DO [address] [place], [facility] induced hypertension, antepartum (HHS-HCC) (Primary Dx); Third trimester (HHS-HCC); 35 weeks gestation of ([facility]) Social History Tobacco Use Types Packs/Day Years [...] nursing note reviewed. Exam conducted with a bone char puller present. Vitals: Estimated body mass index is 40.61 kg/m?? as calculated from the following: Height as of 07/18/24: 5' 3 . Weight as of this encounter: 229 lb 4 oz. BP: 120/86 Patient's last menstrual period was 02/13/2024 (approximate). ASSESSMENT & PLAN ICD-10-CM 1. Third trimester ([facility]) Z34.93 POCT urinalysis dipstick manually resulted 2. 35 weeks gestation of ([facility]) Z3A.35 Return OB: Patient presents today for [...] edema. She continues to follow closely with [facility] and transmits glucose weekly. [facility] recommends pre-eclampsia labs every 2 weeks [...] PM EDT Routine [facility] [address] [place] [phone] Saravanan Ahumada, DO [address] [place] [address] 07/24/2025 9:15 AM EDT Office Visit [facility] [address] [place] [address] Scheduled Orders Name Type Priority Associated [...] as of this encounter Care Teams Director Learning Services Relationship Specialty Start Date End Date Omer Velazquez MD [address] [address] PCP - General Internal Medicine 10/05/22 documented as of this encounter
--- OUTSIDE RECORDS SUMMARY | 2024-10-20 09:06 | XMS_ITS | Encounter Summary ---
Author Organization [facility] Address [address] [place] [address] Care Team Providers Care Package Sorter Name Role Phone Omer Velazquez MD Primary Care Provider [phone] Encounter Details Date Type Department Care Team (Late st Contact Info) Description 10/16/2024 Telephone [facility] [address] [place] [phone] Symone [place] [address] [place] [address] Social History Tobacco Use Types Packs/Day Years [...] encounter Miscellaneous Notes * Telephone Encounter - Symone [place] MA - 10/16/2024 4:50 PM EDT Pt was called and advised iron levels are low and profe was sent in to also take w/Prenatals. PVU. documented in this encounter Plan of Treatment Upcoming Encounters Date Type Department Care Team (Late st Contact Info) Description 10/23/2024 1:30 PM EDT Routine [facility] [address] [place] [address] Saravanan Ahumada DO [address] [place] [address] 07/24/2025 9:15 AM EDT Office Visit [facility] [address] [place] [address] documented as of this encounter Goals Goal Patient Goal Type Associated Problems Recent Progress Patient-Stated? Author Reminders Care Plan OB Reminders No Open Scheduling, Background documented as of this encounter Visit Diagnoses Diagnosis Anemia, unspecified type documented in this encounter Additional Health Concerns Active Problems Noted Date Diagnosed Date OB Reminders 04/30/2024 documented as of this encounter Care Teams Package Sorter Relationship Specialty Start Date End Date Omer Velazquez MD [address] [place] [address] PCP - General Internal Medicine 10/05/22 documented as of this encounter
--- OUTSIDE RECORDS SUMMARY | 2024-10-20 09:06 | XMS_ITS | Encounter Summary ---
Author Organization [facility] Address [address] [place] [address] Care Team Providers Care Pot Room Supervisor Name Role Phone Omer Velazquez MD Primary Care Provider [phone] Encounter Details Date Type Department Care Team (Late st Contact Info) Description 06/07/2024 Abstract [facility] [address] [place] [address] Saravanan Ahumada, DO [address] [place] [address] Social History Tobacco Use Types Packs/Day Years [...] PM EDT Routine [facility] [address] [facility] [facility] [place] [address] Saravanan Ahumada, DO [address] [facility] [place] [address] 07/24/2025 9:15 AM EDT Office Visit [facility] [address] [place] [address] documented as of this encounter Goals Goal Patient Goal Type Associated Problems Recent Progress Patient-Stated? Author Reminders Care Plan OB Reminders No Open Scheduling, Background documented as of this encounter Visit Diagnoses Not on filedocumented in this encounter Additional Health Concerns Active Problems Noted Date Diagnosed Date OB Reminders 04/30/2024 documented as of this encounter Care Teams Pot Room Supervisor Relationship Specialty Start Date End Date Omer Velazquez MD [address] [place] [address] PCP - General Internal Medicine 10/05/22 documented as of this encounter
--- OUTSIDE RECORDS SUMMARY | 2024-10-20 09:06 | XMS_ITS | Encounter Summary ---
Author Organization [facility] Address [address] [place] [address] Care Team Providers Care Real Estate Accountant Name Role Phone Lito Guerrero MD Primary Care Provider [phone] Encounter Details Date Type Department Care Team (Late st Contact Info) Description 10/17/2024 Clinisync Result Encounter [facility] External Department Unsolicited Saravanan Ahumada, DO [address] [facility] [place] [address] Social History Tobacco Use Types Packs/Day Years [...] PM EDT Routine [facility] [address] [facility] [place] [address] Saravanan Ahumada, [address] [place] [address] 07/24/2025 9:15 AM EDT Office Visit [facility] [address] [place] [address] documented as of this encounter Goals Goal Patient Goal Type Associated Problems Recent Progress Patient-Stated? Author Reminders Care Plan OB Reminders No Open Scheduling, Background documented as of this encounter Procedures Procedure Name Priority Date/Time Associated Diagnosis Comments US OB BPP W NON-STRESS 10/17/2024 4:59 PM EDT documented in this encounter Results * US OB BPP W NON-STRESS (10/17/2024 4:59 PM EDT) Anatomical Region Laterality Modality Other 10/17/2024 4:59 PM EDT Narrative 10/17/2024 5:02 PM EDT [address] [address] Ultrasound Report Signed Patient: LITO ROJAS MR#: [id number] : 1995 Acct:[id number] Age/Sex: 29 / F ADM Date: 10/17/24 Loc: [facility] 251-[address]: Saravanan Ahumada D.O. Ordering Physician: Saravanan Ahumada D.O. Date of Service: 10/17/24 Procedure(s): US OB BPP w non-stress Accession Number(s): [id number] cc: Saravanan Ahumada D.O.; LITO GUERRERO [address] [address] Patient Name: LITO ROJAS MRN: [id number] date: 1995 Sex: F Assigned Patient Location: [facility] Current Patient Location: [facility] Accession/Order Number: [id number] Exam Date: 10/17/2024 16:58 Report Date: 10/17/2024 16:59 At the request of: SARAVANAN AHUMADA DO Procedure: US OB BPP w non-stress Ultrasound biophysical profile HISTORY: Gestational diabetes Adequate breathing movement, gross body movement, tone and amniotic fluid volume for total score of 8 out of 8. The amniotic fluid index is 17.6cm within normal limits. The heart rate 144 bpm. US/US OB BPP w non-stress IMPRESSION: Adequate ultrasound biophysical profile Impression dictated by: Kevin Barrett M.D. 10/17/2024 4:59 PM Dictation Location: [place] [address] Electronically authenticated by: [id number] Y Date: 10/17/2024 16:59 Dictated By: Kevin Barrett D.O. Signed By: 10/17/24 1702 DD/ 1659 TD/TT: Normalizer: Procedure Note Radiology, Radiologist, MD - 10/17/2024 [place] [address] Ultrasound Report Signed Patient: LITO ROJAS FMR#: [id number] : 1995Acct:[id number] Age/Sex: 29 / FADM Date: 10/17/24 Loc: [facility] 251-[address]: Saravanan Ahumada D.O. Ordering Physician: Saravanan Ahumada D.O. Date of Service: 10/17/24 Procedure(s): US OB BPP w non-stress Accession Number(s): [id number] cc: Saravanan Ahumada D.O.; LITO GUERRERO [place] [address] Patient Name: LITO ROJAS MRN: [id number] date: 1995 Sex: F Assigned Patient Location: [facility] Current Patient Location: [facility] Accession/Order Number: [id number] Exam Date: 10/17/2024 16:58 Report Date: 10/17/2024 16:59 At the request of: SARAVANAN AHUMADA DO Procedure: US OB BPP w non-stress Ultrasound biophysical profile HISTORY: Gestational diabetes Adequate breathing movement, gross body movement, tone and amniotic fluid volume for total score of 8 out of 8. The amniotic fluidindex is 17.6cm within normal limits. The heart rate 144 bpm. US/US OB BPP w non-stress IMPRESSION: Adequate ultrasound biophysical profile Impression dictated by: Kevin Barrett M.D. 10/17/2024 4:59 PM Dictation Location: [place] [address] Electronically authenticated by: [id number] Y Date: 6:59 Dictated By: Kevin Barrett D.O. Signed By:10/17/24 1702 DD/ 165 TD/TT: Normalizer: us Saravanan Ahumada DO [facility] Final Result documented in this encounter Visit Diagnoses Not on filedocumented in this encounter Additional Health Concerns Active Problems Noted Date Diagnosed Date OB Reminders 04/30/2024 documented as of this encounter Care Teams Real Estate Accountant Relationship Specialty Start Date End Date Lito Guerrero MD [address] [place] [address] PCP - General Internal Medicine 10/05/22 documented as of this encounter
--- OUTSIDE RECORDS SUMMARY | 2024-10-20 09:06 | XMS_ITS | Encounter Summary ---
Author Organization [facility] Address [address] [place] [address] Care Team Providers Care Adz Worker Name Role Phone Omer Velazquez MD Primary Care Provider [phone] Encounter Details Date Type Department Care Team (Late st Contact Info) Description 05/23/2024 Abstract [facility] OB [address] [facility] [address] Kayla Ashley LPN Social History Tobacco [...] PM EDT Routine [facility] BCP OB [address] [facility] [address] Saravanan Ahumada, DO [address] [facility] [place] [address] 07/24/2025 9:15 AM EDT Office Visit [facility] [address] [place] [address] documented as of this encounter Goals Goal Patient Goal Type Associated Problems Recent Progress Patient-Stated? Author Reminders Care Plan OB Reminders No Open Scheduling, Background documented as of this encounter Visit Diagnoses Not on filedocumented in this encounter Additional Health Concerns Active Problems Noted Date Diagnosed Date OB Reminders 04/30/2024 documented as of this encounter Care Teams Adz Worker Relationship Specialty Start Date End Date Omer Velazquez MD [address] [place] [address] PCP - General Internal Medicine 10/05/22 documented as of this encounter
--- OUTSIDE RECORDS SUMMARY | 2024-10-20 09:06 | XMS_ITS | Encounter Summary ---
Author Organization [facility] Address [address] [place] [address] Care Team Providers Care Pin Attacher Name Role Phone Omer Velazquez MD Primary Care Provider [phone] Encounter Details Date Type Department Care Team (Late st Contact Info) Description 10/09/2024 Bamboo flowsheet [facility] OB [address] [place] [address] Saravanan Ahumada, DO [address] [place], [facility] Social History Tobacco Use Types Packs/Day [...] PM EDT Routine [facility] BCP OB [address] [facility] [place] [address] Saravanan Ahumada, DO [address] [facility] [address] 07/24/2025 9:15 AM EDT Office Visit [facility] [address] [place] [address] documented as of this encounter Goals Goal Patient Goal Type Associated Problems Recent Progress Patient-Stated? Author Reminders Care Plan OB Reminders No Open Scheduling, Background documented as of this encounter Visit Diagnoses Not on filedocumented in this encounter Additional Health Concerns Active Problems Noted Date Diagnosed Date OB Reminders 04/30/2024 documented as of this encounter Care Teams Pin Attacher Relationship Specialty Start Date End Date Omer Velazquez MD [address] [place] [address] PCP - General Internal Medicine 10/05/22 documented as of this encounter
--- OUTSIDE RECORDS SUMMARY | 2024-10-20 09:06 | XMS_ITS | Encounter Summary ---
Author Organization [facility] Address [address] [place] [address] Care Team Providers Care Commercial Hvac Service Technician Name Role Phone Omer Velazquez MD Primary Care Provider [phone] Encounter Details Date Type Department Care Team (Late st Contact Info) Description 05/19/2024 Telephone [facility] BCP OB [address] [place] [place] [address] Gaye Hollis LPN [address] [employer] [place] [id number] Social History Tobacco Use Types Packs/Day Years [...] PM EDT Routine [facility] BCP OB [address] [facility] [place] [address] Saravanan Ahumada, DO [address] [facility] [place] [address] 07/24/2025 9:15 AM EDT Office Visit [facility] [address] [place] [address] Scheduled Orders Name Type Priority Associated Diagnoses [...] documented as of this encounter Care Teams Commercial Hvac Service Technician Relationship Specialty Start Date End Date Omer Velazquez MD [address] [place] [address] PCP - General Internal Medicine 10/05/22 documented as of this encounter
--- OUTSIDE RECORDS SUMMARY | 2024-10-20 09:06 | XMS_ITS | Encounter Summary ---
Author Organization [facility] Address [address] [place] [address] Care Team Providers Care Gym Instructor Name Role Phone Omer Velazquez MD Primary Care Provider [phone] Encounter Details Date Type Department Care Team (Late st Contact Info) Description 05/22/2024 Abstract [facility] BCP OB [address] [place] [address] Saravanan Ahumada, DO [address] [place], [facility] Social History Tobacco Use Types Packs/Day Years [...] [address] [facility] [address] Saravanan Ahumada, DO [address] [facility] [place] [address] 07/24/2025 9:15 AM EDT Office Visit [facility] [address] [place] [address] documented as of this encounter Goals Goal Patient Goal Type Associated Problems Recent Progress Patient-Stated? Author Reminders Care Plan OB Reminders No Open Scheduling, Background documented as of this encounter Visit Diagnoses Not on filedocumented in this encounter Additional Health Concerns Active Problems Noted Date Diagnosed Date OB Reminders 04/30/2024 documented as of this encounter Care Teams Gym Instructor Relationship Specialty Start Date End Date Omer Velazquez MD [address] [place] [address] PCP - General Internal Medicine 10/05/22 documented as of this encounter
--- OUTSIDE RECORDS SUMMARY | 2024-10-20 09:06 | XMS_ITS | Encounter Summary ---
Author Organization [facility] Address [address] [place] [address] Care Team Providers Care Special Service Representative Name Role Phone Omer Velazquez MD Primary Care Provider [phone] Encounter Details Date Type Department Care Team (Late st Contact Info) Description 05/01/2024 Abstract [facility] BCP OB [address] [place] [address] Saravanan Ahumada, DO [address] [place], [facility]11 Social History Tobacco Use Types [...] PM EDT Routine [facility] BCP OB [address] [facility] [place] [address] Saravanan Ahumada, DO [address] [facility] [place] [address] 07/24/2025 9:15 AM EDT Office Visit [facility] [address] [place] [address] documented as of this encounter Goals Goal Patient Goal Type Associated Problems Recent Progress Patient-Stated? Author Reminders Care Plan OB Reminders No Open Scheduling, Background documented as of this encounter Visit Diagnoses Not on filedocumented in this encounter Additional Health Concerns Active Problems Noted Date Diagnosed Date OB Reminders 04/30/2024 documented as of this encounter Care Teams Special Service Representative Relationship Specialty Start Date End Date Omer Velazquez MD [address] [place] [address] PCP - General Internal Medicine 10/05/22 documented as of this encounter
--- OUTSIDE RECORDS SUMMARY | 2024-10-20 09:06 | XMS_ITS | Encounter Summary ---
Author Organization [facility] Address [address] [place] [address] [place] [address] Care Team Providers Care Street Worker Name Role Phone Omer Velazquez MD Primary Care Provider [phone] Encounter Details Date Type Department Care Team (Late st Contact Info) Description 08/24/2024 External Result Encounter [facility] External Department Unsolicited Jie Mccarthy, PARK ACTIVITIES COORDINATOR [address] [place] [address] Social History Tobacco Use Types Packs/Day Years [...] [address] [facility] [place] [address] Saravanan Ahumada, DO [address] [facility] [place] [address] 07/24/2025 9:15 AM EDT Office Visit [facility] [address] [place] [address] documented as of this encounter Goals Goal [...] PM EDT Narrative 08/24/2024 6:36 PM EDT [facility] Main [address] [address] Echocardiogram Signed Patient: Lissa Rivas MR#: [id number] : 1995 Acct:[id number] Age/Sex: 29 / F ADM Date: 08/24/24 Loc: Room: Type: [facility] Attending Dr: Jie Mccarthy RN, MSN, [...] Procedure Note Iveth Ding MD - 08/24/2024 [facility] [place] [address] Echocardiogram Signed Patient: Lissa Rivas FMR#: [id number] : 1995Acct:[id number] Age/Sex: Date: 08/24/24 Loc: Room:Type: [facility] Attending Dr: Jie Mccarthy RN, MSN, [...] 1239 Signed By: Iveth Ding MD 08/24/24 3019 us Jie Mccarthy PARK ACTIVITIES COORDINATOR CV ECHO PROCEDURES Final Res ult documented in this encounter Visit Diagnoses Not on filedocumented in this encounter Additional Health Concerns Active Problems Noted Date Diagnosed Date OB Reminders 04/30/2024 documented as of this encounter Care Teams Street Worker Relationship Specialty Start Date End Date Omer Velazquez MD [address] [place] [address] PCP - General Internal Medicine 10/05/22 documented as of this encounter
--- OUTSIDE RECORDS SUMMARY | 2024-10-20 09:06 | XMS_ITS | Encounter Summary ---
Author Organization [facility] Address [address] [place] [address] Care Team Providers Care Federal Judge Name Role Phone Omer Velazquez MD Primary Care Provider [phone] Encounter Details Date Type Department Care Team (Late st Contact Info) Description 06/19/2024 Abstract [facility] B[facility] OB [address] [place] [address] Saravanan Ahumada, DO [address] [place], [facility] Social History Tobacco Use Types Packs/Day [...] PM EDT Routine [facility] BCP OB [address] [facility] [place] [address] Saravanan Ahumada, DO [address] [facility] [place] [address] 07/24/2025 9:15 AM EDT Office Visit [facility] [address] [place] [address] documented as of this encounter Goals Goal Patient Goal Type Associated Problems Recent Progress Patient-Stated? Author Reminders Care Plan OB Reminders No Open Scheduling, Background documented as of this encounter Visit Diagnoses Not on filedocumented in this encounter Additional Health Concerns Active Problems Noted Date Diagnosed Date OB Reminders 04/30/2024 documented as of this encounter Care Teams Federal Judge Relationship Specialty Start Date End Date Omer Velazquez MD [address] [place] [address] PCP - General Internal Medicine 10/05/22 documented as of this encounter
--- OUTSIDE RECORDS SUMMARY | 2024-10-20 09:06 | XMS_ITS | Encounter Summary ---
Author Organization [facility] Address [address] [place] [address] Care Team Providers Care Rock Crusher Name Role Phone Omer Velazquez MD Primary Care Provider [phone] Encounter Details Date Type Department Care Team (Late st Contact Info) Description 10/05/2022 Abstract [facility] OB [address] [facility] [address] [place] [address] Robles Goldsmith, DO [address] [facility] [address] [place] [address] Social History Tobacco Use Types Packs/Day Years [...] PM EDT Routine [facility] BCP OB [address] [facility] [place] [address] Saravanan Ahumada, DO [address] [place], [place] [address] 07/24/2025 9:15 AM EDT Office Visit [facility] [address] [place] [address] documented as of this encounter Visit Diagnoses Not on filedocumented in this encounter Care Teams Rock Crusher Relationship Specialty Start Date End Date Omer Velazquez MD [address] [place] [address] PCP - General Internal Medicine 10/05/22 documented as of this encounter
--- OUTSIDE RECORDS SUMMARY | 2024-10-20 09:06 | XMS_ITS | Encounter Summary ---
Author Organization [facility] Address [address] [place] [address] Care Team Providers Care Parachute Marker Name Role Phone Omer Velazquez MD Primary Care Provider [phone] Encounter Details Date Type Department Care Team (Late st Contact Info) Description 05/23/2024 Abstract [facility] OB [address] [facility] [place] [address] Kayla Ashley LPN Social History Tobacco [...] PM EDT Routine [facility] BCP OB [address] [facility] [place] [address] Saravanan Ahumada, DO [address] [facility] [place] [address] 07/24/2025 9:15 AM EDT Office Visit [facility] [address] [place] [address] documented as of this encounter Goals Goal Patient Goal Type Associated Problems Recent Progress Patient-Stated? Author Reminders Care Plan OB Reminders No Open Scheduling, Background documented as of this encounter Visit Diagnoses Not on filedocumented in this encounter Additional Health Concerns Active Problems Noted Date Diagnosed Date OB Reminders 04/30/2024 documented as of this encounter Care Teams Parachute Marker Relationship Specialty Start Date End Date Omer Velazquez MD [address] [place] [address] PCP - General Internal Medicine 10/05/22 documented as of this encounter
--- OUTSIDE RECORDS SUMMARY | 2024-10-20 09:06 | XMS_ITS | Encounter Summary ---
Author Organization [facility] Address [address] [place] [address] Care Team Providers Care Personal Lines Sales Executive Name Role Phone Omer Velazquez MD Primary Care Provider [phone] Encounter Details Date Type Department Care Team (Late st Contact Info) Description 05/01/2024 Abstract [facility] OB [address] [place] [address] Saravanan Ahumada, DO [address] [place], [facility] Social [...] PM EDT Routine [facility] BCP OB [address] [facility] [place] [address] Saravanan Ahumada, DO [address] [facility] [place] [address] 07/24/2025 9:15 AM EDT Office Visit [facility] [address] [place] [address] documented as of this encounter Goals Goal Patient Goal Type Associated Problems Recent Progress Patient-Stated? Author Reminders Care Plan OB Reminders No Open Scheduling, Background documented as of this encounter Visit Diagnoses Not on filedocumented in this encounter Additional Health Concerns Active Problems Noted Date Diagnosed Date OB Reminders 04/30/2024 documented as of this encounter Care Teams Personal Lines Sales Executive Relationship Specialty Start Date End Date Omer Velazquez MD [address] [place] [address] PCP - General Internal Medicine 10/05/22 documented as of this encounter
--- OUTSIDE RECORDS SUMMARY | 2024-10-20 09:06 | XMS_ITS | Encounter Summary ---
Author Organization [facility] Address [address] [place] [address] Care Team Providers Care Engine Tester Name Role Phone Omer Velazquez MD Primary Care Provider [phone] Encounter Details Date Type Department Care Team (Late Contact Info) Description 10/16/2024 Clinisync Result Encounter NOMS External Department Unsolicited [...] Department Care Team (Late Contact Info) Description 10/23/2024 1:30 PM EDT Routine [facility] BCP OB [address] [facility] [place] [phone] Saravanan Ahumada, DO [address] [facility] [place] [address] 07/24/2025 9:15 AM EDT Office Visit [facility] [address] [place] [phone] documented as of this encounter Goals Goal Patient Goal Type Associated Problems Recent Progress Patient-Stated? Author Reminders Care Plan OB Reminders No Open Scheduling, Background documented as of this encounter Procedures Procedure Name Priority Date/Time Associated Diagnosis Comments TBH CREATININE Routine 10/16/2024 9:48 AM EDT [facility] PROTHROMBIN TIME INR W/O COUM Routine 10/16/2024 9:48 AM EDT [facility] AST Routine 10/16/2024 9:48 AM EDT [facility] APTT Routine 10/16/2024 9:48 AM EDT ALL URIC ACID Routine 10/16/2024 9:48 AM EDT ALL LDH Routine 10/16/2024 9:48 AM EDT ALL CBC WITH AUTO DIFF Routine 10/16/2024 9:48 AM EDT ALL BUN Routine 10/16/2024 9:48 AM EDT documented in this encounter Results * ALL LDH (10/16/2024 9:48 AM EDT) LACTATE DEHYDROGENASE 146 81 - 234 U/L TB 10/16/2024 9:48 AM EDT 10/16/2024 9:50 AM EDT Narrative CLINISYNC - 10/16/2024 11:27 AM EDT us Generic External Data Provider CLINISYNC F inal Result Performing Organization Address [facility] de Phone Number CLINISYNC TB * (ABNORMAL) [facility] AST (10/16/2024 9:48 AM EDT) ASPARTATE AMINO TRANSFERASE 12(L) 15 - 37 U/L TBH 10/16/2024 9:48 AM EDT 10/16/2024 9:50 AM EDT Narrative CLINISYNC - 10/16/2024 11:27 AM EDT Generic External Data Provider CLINISYNC F inal Result Performing Organization Address [facility] de Phone Number CLINISYNC TB * ALL URIC ACID (10/16/2024 9:48 AM EDT) URIC ACID 3.5 2.6 - 6.0 mg/dL TBH 10/16/2024 9:48 AM EDT 10/16/2024 9:50 AM EDT Narrative CLINISYNC - 10/16/2024 11:27 AM EDT Generic External Data Provider CLINISYNC F inal Result Performing Organization Address [facility] de Phone Number CLINISYNC TB * (ABNORMAL) TBH CREATININE (10/16/2024 9:48 AM EDT) CREATININE 0.52(L) 0.55 - 1.02 mg/dL TBH TBH EGFR-AF GHANAIAN >60 >=60 mL/min/1.7 3m 2 TBH TBH EGFR-NON AF GHANAIAN >60 >=60 mL/min/1.7 3m 2 TBH 10/16/2024 9:48 AM EDT 10/16/2024 9:50 AM EDT Narrative CLINISYNC - 10/16/2024 11:27 AM EDT Generic External Data Provider CLINISYNC F inal Result Performing Organization Address [facility] Co de Phone Number CLINISYNC TBH * (ABNORMAL) ALL BUN (10/16/2024 9:48 AM EDT) BLOOD UREA NITROGEN 6.0(L) 7.0 - 18.0 mg/dL TB 10/16/2024 9:48 AM EDT 10/16/2024 9:50 AM EDT Narrative CLINISYNC - 10/16/2024 11:27 AM EDT Generic External Data Provider CLINISYNC F inal Result Performing Organization Address [facility] Co de Phone Number [facility] * [facility] APTT (10/16/2024 9:48 AM EDT) PARTIAL THROMBOPLASTIN TIME 25.4 22.3 - 36.2 sec TB 10/16/2024 9:48 AM EDT 10/16/2024 9:50 AM EDT Narrative CLINISYNC - 10/16/2024 10:10 AM EDT Selina Denson NP CLINISYNC Final Result Performing Organization Address [facility] de Phone Number [facility] * [facility] PROTHROMBIN TIME INR W/O COUM (10/16/2024 9:48 AM EDT) PROTHROMBIN TIME 9.6 9.0 - 11.6 sec TB TB INR <0.93 TBH Comment: DESIRED INR: 2.0-3.0 CONDITIONS NOT LISTED BELOW 2.5-3.5 FOR PROSTHETIC HEART VALVE REPLACEMENT 2.5-3.5 RECURRENT THROMBOSIS 10/16/2024 9:48 AM EDT 10/16/2024 9:50 AM EDT Narrative CLINISYNC - 10/16/2024 10:10 AM EDT Selina Denson NP CLINISYNC Final Result Performing Organization Address [facility]/ZIP Co de Phone Number [facility] * (ABNORMAL) ALL CBC WITH AUTO DIFF (10/16/2024 9:48 AM EDT) [facility] TBH WBC 9.6 4.0 - 11.0 10 3/uL TBH TBH RBC 3.31(L) 4.20 - 5.40 10 6/uL TBH TBH HGB 10.0(L) 12.0 - 16.0 g/dL TBH TBH HCT 30.0(L) 36.0 - 48.0 % TBH TBH MCV 90.6 81.0 - 99.0 fL TBH TBH MCH 30.2 26.7 - 34.0 pg TBH TBH MCHC 33.3 29.9 - 35.2 g/dL TBH TBH RDW 13.1 11.0 - 15.0 % TBH TBH PLT 215 150 - 450 10 3/uL TBH TBH MPV 10.4 9.5 - 13.5 fL TBH NEUTROPHILS PERCENT AUTO 69.4 43.0 - 75.0 % TBH LYMPHOCYTES PERCENT AUTO 20.3(L) 20.5 - 60.0 % TBH MONOCYTES PERCENT AUTO 7.9 1.7 - 12.0 % TBH TBH EO % 1.4 0.9 - 7.0 % TBH BASOPHILS PERCENT AUTO 0.2 0.2 - 2.0 % TBH IMMATURE GRANULOCYTES PCT AUTO 0.8(H) 0.0 - 0.5 % TBH NEUTROPHILS ABSOLUTE AUTO 6.6(H) 1.4 - 6.5 10 3/uL TBH LYMPHOCYTES ABSOLUTE AUTO 1.9 1.2 - 3.8 10 3/uL TBH MONOCYTES ABSOLUTE AUTO 0.8 0.3 - 0.8 10 3/uL TBH TBH EO # 0.1 0.0 - 0.7 10 3/uL TBH BASOPHILS ABSOLUTE AUTO 0.0 0.0 - 0.1 10 3/uL TBH IMMATURE GRANULOCYTES ABS AUTO 0.08(H) 0.00 - 0.03 10 3/uL TBH 10/16/2024 9:48 AM EDT 10/16/2024 9:50 AM EDT Narrative CLINISYNC - 10/16/2024 10:01 AM EDT Selina Janiya DIE FINISHER CLINISYNC Final Result CLINISYNC TB documented in this encounter Visit Diagnoses Not on filedocumented in this encounter Additional Health Concerns Active Problems Noted Date Diagnosed Date OB Reminders 04/30/2024 documented as of this encounter Care Teams Engine Tester Relationship Specialty Start Date End Date Omer Velazquez MD [address] [facility] [address] [place] [address] PCP - General Internal Medicine 10/05/22 documented as of this encounter
--- OUTSIDE RECORDS SUMMARY | 2024-10-20 09:06 | XMS_ITS | Encounter Summary ---
Author Organization [facility] Address [address] [place] [address] Care Team Providers Care Slag Skimmer Name Role Phone Omer Velazquez MD Primary Care Provider Encounter Details Date Type Department Care Team (Late st Contact Info) Description 10/11/2024 Abstract [facility] BCP OB [address] [place] [address] Saravanan Ahumada, DO [address] [place] [address] Social History Tobacco Use Types Packs/Day Years [...] PM EDT Routine [facility] BCP OB [address] [facility] [address] Saravanan Ahumada, DO [address] [facility] [place] [address] 07/24/2025 9:15 AM EDT Office Visit [facility] [address] [place] [address] documented as of this encounter Goals Goal Patient Goal Type Associated Problems Recent Progress Patient-Stated? Author Reminders Care Plan OB Reminders No Open Scheduling, Background documented as of this encounter Visit Diagnoses Not on filedocumented in this encounter Additional Health Concerns Active Problems Noted Date Diagnosed Date OB Reminders 04/30/2024 documented as of this encounter Care Teams Slag Skimmer Relationship Specialty Start Date End Date Omer Velazquez MD [address] [place] [address] PCP - General Internal Medicine 10/05/22 documented as of this encounter
--- OUTSIDE RECORDS SUMMARY | 2024-10-20 09:06 | XMS_ITS | Encounter Summary ---
Author Organization [facility] Address [address] [place] [address] Care Team Providers Care Frame Stylist Name Role Phone Omer Velazquez MD Primary Care Provider [phone] Encounter Details Date Type Department Care Team (Late st Contact Info) Description 07/20/2023 Orders Only [facility] [address] [place] [phone] A, Unknown Practice [address] [place], [place] [phone] Social History Tobacco Use Types Packs/Day Years [...] Saravanan Ahumada, DO [address] [place], [place] [phone] 07/24/2025 9:15 AM EDT Office Visit [facility] [address] [place] [address] documented as of this encounter Procedures Procedure Name Priority Date/Time Associated Diagnosis Comments SCANNED LABS Routine 07/20/2023 2:45 PM EDT documented in this encounter Results * SCANNED LABS (07/20/2023 2:45 PM EDT) us Unknown Practice A LAB CHG PERFORMABLES Final Re sult documented in this encounter Visit Diagnoses Not on filedocumented in this encounter Care Teams Frame Stylist Relationship Specialty Start Date End Date Omer Velazquez MD [address] [place] [address] PCP - General Internal Medicine 10/05/22 documented as of this encounter
--- OUTSIDE RECORDS SUMMARY | 2024-10-20 09:06 | XMS_ITS | Encounter Summary ---
Author Organization [facility] Address [address] [place] [address] Care Team Providers Care Woods Warden Name Role Phone Omer Velazquez MD Primary Care Provider [phone] Encounter Details Date Type Department Care Team (Late st Contact Info) Description 01/11/2023 Abstract [facility] IM [address] [facility] 230 [place] [phone] Omer Velazquez MD [address] [facility] 230 [place] [address] Social History Tobacco Use Types Packs/Day Years [...] PM EDT Routine [facility] BCP OB [address] [facility] [phone] Saravanan Ahumada, DO [address] [place] [address] 07/24/2025 9:15 AM EDT Office Visit [facility] [address] [place] [address] documented as of this encounter Visit Diagnoses Not on filedocumented in this encounter Care Teams Woods Warden Relationship Specialty Start Date End Date Omer Velazquez MD [address] [place] [address] PCP - General Internal Medicine 10/05/22 documented as of this encounter
--- OUTSIDE RECORDS SUMMARY | 2024-10-20 09:06 | XMS_ITS | Encounter Summary ---
Author Organization [facility] Address [address] [place] [address] Care Team Providers Care Talent Director Name Role Phone Lito Guerrero MD Primary Care Provider [phone] Encounter Details Date Type Department Care Team (Late st Contact Info) Description 10/11/2024 Clinisync Result Encounter NOMS External Department Unsolicited Saravanan Ahumada, DO [address] [facility] [place] [address] Social History Tobacco Use Types Packs/Day Years [...] BCP OB [address] [facility] [place] [phone] Saravanan Ahumada DO [address] [place] [address] 07/24/2025 9:15 AM EDT Office Visit [facility] [address] [place] [address] documented as of this encounter Goals Goal Patient Goal Type Associated Problems Recent Progress Patient-Stated? Author Reminders Care Plan OB Reminders No Open Scheduling, Background documented as of this encounter Procedures Procedure Name Priority Date/Time Associated Diagnosis Comments US OB BPP W NON-STRESS 10/11/2024 8:42 AM EDT documented in this encounter Results * US OB BPP W NON-STRESS (10/11/2024 8:42 AM EDT) Anatomical Region Laterality Modality Other 10/11/2024 8:42 AM EDT Narrative 10/11/2024 8:45 AM EDT [address] [address] Ultrasound Report Signed Patient: LITO ROJAS MR#: [id number] : 1995 Acct:[id number] Age/Sex: 29 / F ADM Date: 10/10/24 Loc: US Attending Dr: Saravanan Ahumada D.O. Ordering Physician: Saravanan Ahumada D.O. Date of Service: 10/10/24 Procedure(s): US OB BPP w non-stress Accession Number(s): [id number] cc: Saravanan Ahumada D.O.; LITO GUERRERO [address] [address] Patient Name: LITO ROJAS MRN: [facility]:[id number] date: 1995 Sex: F Assigned Patient Location: Current Patient Location: Accession/Order Number: [id number] Exam Date: 10/11/2024 08:41 Report Date: 10/11/2024 08:42 At the request of: SARAVANAN AHUMADA DO Procedure: US OB BPP w non-stress BIOPHYSICAL PROFILE: CLINICAL INFORMATION: HISTORY OF GESTATIONAL DIABETES MELLITUS Z86.32 COMPARISON: 10/03/2024 There is a single live intrauterine gestation in cephalic presentation. The reported gestational age is 34 weeks 2 days. The heart rate measures 150 beats per minute. FINDINGS: TONE: 1 or more episodes of [...] greater than 2 cm [Y] 2/2 RAKESH: 16.0 cm. This is in normal range. Total score: 8/8 US/US OB BPP w non-stress IMPRESSION: NORMAL BIOPHYSICAL PROFILE Impression dictated by: Paula Gage M.D. 10/11/2024 8:42 AM Dictation Location: [place] [address] Electronically authenticated by: [id number] Y Date: 10/11/2024 08:42 Dictated By: Paula Gage M.D. Signed By: 10/11/24 0845 DD/ 0842 TD/TT: Wireless Technician: Procedure Note Radiology, Radiologist, MD - 10/11/2024 [place] [address] Ultrasound Report Signed Patient: LITO ROJAS FMR#: [id number] : 1995Acct:[id number] Age/Sex: 29 / FADM Date: 10/10/24 Loc: US Attending Dr: Saravanan Ahumada D.O. Ordering Physician: Saravanan Ahumada D.O. Date of Service: 10/10/24 Procedure(s): US OB BPP w non-stress Accession Number(s): [id number] cc: Saravanan Ahumada D.O.; LITO GUERRERO [address] [address] Patient Name: LITO ROJAS MRN: [id number] date: 1995 Sex: F Assigned Patient Location: Current Patient Location: Accession/Order Number: [id number] Exam Date: 10/11/2024 08:41 Report Date: 10/11/2024 08:42 At the request of: SARAVANAN AHUMADA DO Procedure: US OB BPP w non-stress BIOPHYSICAL PROFILE: CLINICAL INFORMATION: HISTORY OF GESTATIONAL DIABETES MELLITUS Z86.32 COMPARISON: 10/03/2024 There is a single live intrauterine gestation in cephalic presentation.The reported gestational age is 34 weeks 2 days. The heart ratemeasures 150 beats per minute. FINDINGS: TONE: 1 or more episodes of [...] greater than 2 cm [Y] 2/2 RAKESH: 16.0 cm. This is in normal range. Total score: 8/8 US/US OB BPP w non-stress IMPRESSION: NORMAL BIOPHYSICAL PROFILE Impression dictated by: Paula Gage M.D. 10/11/2024 8:42 AM Dictation Location: [place] [address] Electronically authenticated by: [id number] Y Date: 508:42 Dictated By: Paula Gage M.D. Signed By:10/11/24 0845 DD/ 0842 TD/TT: Wireless Technician: Saravanan Ahumada DO [facility] Final Result documented in this encounter Visit Diagnoses Not on filedocumented in this encounter Additional Health Concerns Active Problems Noted Date Diagnosed Date OB Reminders 04/30/2024 documented as of this encounter Care Teams Talent Director Relationship Specialty Start Date End Date Lito Guerrero MD [address] [place] [address] PCP - General Internal Medicine 10/05/22 documented as of this encounter
--- OUTSIDE RECORDS SUMMARY | 2024-10-20 09:06 | XMS_ITS | Encounter Summary ---
Author Organization [facility] Address [address] [place] [address] Care Team Providers Care Farm Appraiser Name Role Phone Omer Velazquez MD Primary Care Provider [phone] Encounter Details Date Type Department Care Team (Late st Contact Info) Description 10/12/2024 Abstract [facility] BCP OB [address] [place] [address] Saravanan Ahumada, DO [address] [place], [facility] Social History Tobacco Use Types [...] PM EDT Routine [facility] BCP OB [address] [facility] [place] [address] Saravanan Ahumada, DO [address] [facility] [place] [address] 07/24/2025 9:15 AM EDT Office Visit [facility] [address] [place] [address] documented as of this encounter Goals Goal Patient Goal Type Associated Problems Recent Progress Patient-Stated? Author Reminders Care Plan OB Reminders No Open Scheduling, Background documented as of this encounter Visit Diagnoses Not on filedocumented in this encounter Additional Health Concerns Active Problems Noted Date Diagnosed Date OB Reminders 04/30/2024 documented as of this encounter Care Teams Farm Appraiser Relationship Specialty Start Date End Date Omer Velazquez MD [address] [place] [address] PCP - General Internal Medicine 10/05/22 documented as of this encounter
--- OUTSIDE RECORDS SUMMARY | 2024-10-20 09:06 | XMS_ITS | Encounter Summary ---
Author Organization [facility] Address [address] [place] [address] Care Team Providers Care Traveling Operator Name Role Phone Omer Velazquez MD Primary Care Provider [phone] Encounter Details Date Type Department Care Team (Late Contact Info) Description 01/13/2023 Orders Only [facility] [address] [place] [address] Shelby Hernandez PA [address] [place] [address] Social History Tobacco Use Types Packs/Day Years [...] PM EDT Routine [facility] BCP OB [address] [facility] [place] [address] Saravanan Ahumada, DO [address] [place], [place] [address] 07/24/2025 9:15 AM EDT Office Visit [facility] [address] [place] [address] documented as of this encounter Visit Diagnoses Not on filedocumented in this encounter Care Teams Traveling Operator Relationship Specialty Start Date End Date Omer Velazquez MD [address] [place] [address] PCP - General Internal Medicine 10/05/22 documented as of this encounter
--- OUTSIDE RECORDS SUMMARY | 2024-10-20 09:06 | XMS_ITS | Encounter Summary ---
Author Organization [facility] Address [address] [place] [address] Care Team Providers Care Montessori Program Director Name Role Phone Omer Velazquez MD Primary Care Provider [phone] Encounter Details Date Type Department Care Team (Late st Contact Info) Description 05/01/2024 Abstract [facility] BCP OB [address] [place] [address] Saravanan Ahumada, DO [address] [place], [facility]11 Social History Tobacco Use Types Packs/Day Years [...] [address] [facility] [place] [address] Saravanan Ahumada, DO [address] [facility] [place] [address] 07/24/2025 9:15 AM EDT Office Visit [facility] [address] [place] [address] documented as of this encounter Goals Goal Patient Goal Type Associated Problems Recent Progress Patient-Stated? Author Reminders Care Plan OB Reminders No Open Scheduling, Background documented as of this encounter Visit Diagnoses Not on filedocumented in this encounter Additional Health Concerns Active Problems Noted Date Diagnosed Date OB Reminders 04/30/2024 documented as of this encounter Care Teams Montessori Program Director Relationship Specialty Start Date End Date Omer Velazquez MD [address] [place] [address] PCP - General Internal Medicine 10/05/22 documented as of this encounter
--- OUTSIDE RECORDS SUMMARY | 2024-10-20 09:06 | XMS_ITS | Encounter Summary ---
Author Organization [facility] Address [address] [place] [address] Care Team Providers Care Information Technology Account Manager Name Role Phone Omer Velazquez MD Primary Care Provider [phone] Encounter Details Date Type Department Care Team (Late st Contact Info) Description 06/19/2024 Abstract [facility] BCP OB [address] [place] [address] Saravanan Ahumada, DO [address] [place], [facility]11 Social [...] PM EDT Routine [facility] BCP OB [address] [facility] [address] Saravanan Ahumada, DO [address] [facility] [place] [place] [address] 07/24/2025 9:15 AM EDT Office Visit [facility] IM [address] [place] [address] documented as of this encounter Goals Goal Patient Goal Type Associated Problems Recent Progress Patient-Stated? Author Reminders Care Plan OB Reminders No Open Scheduling, Background documented as of this encounter Visit Diagnoses Not on filedocumented in this encounter Additional Health Concerns Active Problems Noted Date Diagnosed Date OB Reminders 04/30/2024 documented as of this encounter Care Teams Information Technology Account Manager Relationship Specialty Start Date End Date Omer Velazquez MD [address] [place] [address] PCP - General Internal Medicine 10/05/22 documented as of this encounter
--- OUTSIDE RECORDS SUMMARY | 2024-10-20 09:06 | XMS_ITS | Encounter Summary ---
Author Organization [facility] Address [address] [place] [address] Care Team Providers Care Machinist/Machine Builder Name Role Phone Omer Velazquez MD Primary Care Provider [phone] Encounter Details Date Type Department Care Team (Late st Contact Info) Description 01/06/2023 Abstract [facility] SWS OB [address] [facility] [address] [place] [address] Robles Goldsmith, DO [address] [facility] [address] [place] [address] Social History Tobacco Use Types Packs/Day Years [...] Routine NOMS BCP OB [address] [place] [address] Saravanan Ahumada, DO [address] [place], [place] [address] 07/24/2025 9:15 AM EDT Office Visit [facility] [address] [place] [address] documented as of this encounter Visit Diagnoses Not on filedocumented in this encounter Care Teams Machinist/Machine Builder Relationship Specialty Start Date End Date Omer Velazquez MD [address] [place] [address] PCP - General Internal Medicine 10/05/22 documented as of this encounter
--- OUTSIDE RECORDS SUMMARY | 2024-10-20 09:06 | XMS_ITS | Encounter Summary ---
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 [...] questions or tofollow up. I am at [phone]. Thank you. FYI documented in this encounter Plan of Treatment Upcoming Encounters Date Type Department Care Team (Late st Contact Info) Description 10/23/2024 1:30 PM EDT Routine [facility] BCP OB [address] [facility] [place] [address] Saravanan Ahumada, DO [address] [facility] [place] [address] 07/24/2025 9:15 AM EDT Office Visit [facility] [address] [place] [address] documented as of this encounter Goals Goal Patient Goal Type Associated Problems Recent Progress Patient-Stated? Author Reminders Care Plan OB Reminders No Open Scheduling, Background documented as of this encounter Visit Diagnoses Not on filedocumented in this encounter Additional Health Concerns Active Problems Noted Date Diagnosed Date OB Reminders 04/30/2024 documented as of this encounter Care Teams Manager Of Application Development Relationship Specialty Start Date End Date Omer Velazquez MD [address] [facility] 230 [place] [address] PCP - General Internal Medicine 10/05/22 documented as of this encounter
--- OUTSIDE RECORDS SUMMARY | 2024-10-20 09:06 | XMS_ITS | Clinical Summary ---
Author Organization [facility] Address [address] [place] [address] Phone Care Team Providers Care Forensic Science Examiner Name Role Phone Omer Velazquez MD Primary [...] Active Active Problems No known active problems Encounters Date Type Department Care Team Description 10/18/2024 Scanned Document [facility] [address] [place] [phone] Scanning, Generic Provider from Last 3 Months Social History Tobacco Use Types Packs/Day Years [...] Comments HIV Screening 1995 Lipid Panel 1995 Varicella Vaccines (2 of 2 - 2-dose childhood series) 10/27/1996 08/04/1996 COVID-19 Vaccine (#1) 2000 Hepatitis C Screening 2013 Hepatitis A Vaccines (1 of 2 - Risk 2-dose series) 2014 Cervical Cancer Screening 2016 HPV/Cotest 2016 Pap Smear 2016 Influenza Vaccine (#1) 2024 01/30/2015, 2008 Yearly [...] on patient's age to complete this topic Procedures Procedure Name Priority Date/Time Associated Diagnosis Comments ECHOCARDIOGRAM 10/18/2024 from Last 3 Months Results * Echocardiogram (10/18/2024) Narrative 10/18/2024 Ordered by an unspecified provider. us Generic Provider Scanning CV ECHO PROCEDURES Fin al Result from Last 3 Months Insurance [address] [place] [id number] [facility] [address] [place] [address] [facility] Care Teams Forensic Science Examiner Relationship Specialty Start Date End Date Omer Velazquez MD [address] [place] [phone] PCP - General Internal Medicine 02/14/24
--- OUTSIDE RECORDS SUMMARY | 2024-10-20 09:06 | XMS_ITS | Encounter Summary ---
Author Organization [facility] Address [address] [place] [address] Care Team Providers Care Manipulator Operator Name Role Phone Omer Velazquez MD Primary Care Provider [phone] Encounter Details Date Type Department Care Team (Late st Contact Info) Description 10/16/2024 Bamboo flowsheet [facility] [address] [place] [address] Saravanan Ahumada, DO [address] [place], [facility] [address] Social History Tobacco Use Types Packs/Day Years [...] EDT Routine [facility] [address] [place] [phone] Saravanan Ahumada, DO [address] [place] [address] 07/24/2025 9:15 AM EDT Office Visit [facility] [address] [place] [phone] documented as of this encounter Goals Goal Patient Goal Type Associated Problems Recent Progress Patient-Stated? Author Reminders Care Plan OB Reminders No Open Scheduling, Background documented as of this encounter Visit Diagnoses Not on filedocumented in this encounter Additional Health Concerns Active Problems Noted Date Diagnosed Date OB Reminders 04/30/2024 documented as of this encounter Care Teams Manipulator Operator Relationship Specialty Start Date End Date Omer Velazquez MD [address] [place] [address] PCP - General Internal Medicine 10/05/22 documented as of this encounter
--- OUTSIDE RECORDS SUMMARY | 2024-10-20 09:07 | XMS_ITS | Encounter Summary ---
Author Organization [facility] tem Address [id number] [address] [place] [address] Care Team Providers Care Legal Support Assistant Name Role Phone Unavailable Primary Care Provider Unavailabl e Encounter Details Date Type Department Care Team (Late Contact Info) Description 09/14/2024 Orders Only Maternal- Medicine at [facility] [address] [place] [phone] Torrie Posada RN Social History Tobacco Use [...] Care Team (Late Contact Info) Description 10/23/2024 8:30 AM EDT Office Visit Maternal- Medicine at [facility] [address] [place] [phone] Vy Pemberton MD [address] [facility], [address] [place] [phone] documented as of this encounter Visit Diagnoses Not on filedocumented in this encounter
--- OUTSIDE RECORDS SUMMARY | 2024-10-20 09:07 | XMS_ITS | Encounter Summary ---
Author Organization [facility] Address [address] [place] [address] Phone Care Team Providers Care Paper Machine Tender Name Role Phone Omer Velazquez MD Primary Care Provider [phone] Encounter Details Date Type Department Care Team (Late st Contact Info) Description 10/18/2024 Scanned Document [facility] [address] [place] [phone] Scanning, Generic Provider Social History Tobacco Use Types Packs/Day Years Used Date Smoking Tobacco: Never Smokeless Tobacco: Never Comments Unknown Sex and Gender Information Value Date Recorded Sex Assigned at Not on file Legal Sex Female 1:32 PM EST Gender Identity Not on file Sexual Orientation Not on file documented as of this encounter Plan of Treatment Not on file documented as of this encounter Procedures Procedure Name Priority Date/Time Associated Diagnosis Comments ECHOCARDIOGRAM 10/18/2024 documented in this encounter Results * Echocardiogram (10/18/2024) Narrative 10/18/2024 Ordered by an unspecified provider. us Generic Provider Scanning CV ECHO PROCEDURES Fin al Result documented in this encounter Visit Diagnoses Not on filedocumented in this encounter Additional Health Concerns Assessment Noted Time A fall risk assessment has been complete d for the patient 03/08/2024 10:28 AM EST documented as of this encounter Care Teams Paper Machine Tender Relationship Specialty Start Date End Date Omer Velazquez MD [address] [place] [phone] PCP - General Internal Medicine 02/14/24 documented as of this encounter
--- OUTSIDE RECORDS SUMMARY | 2024-10-20 09:07 | XMS_ITS | Encounter Summary ---
Author Organization [facility] tem Address [id number] [address] [place] [address] Care Team Providers Care Hide Cooking Operator Name Role Phone Unavailable Primary Care Provider Unavailabl e Encounter Details Date Type Department Care Team (Late st Contact Info) Description 10/04/2024 Telephone Maternal- Medicine at [facility] [address] [place] [address] Aranza Beltran, RN Social History [...] AM EDT Office Visit Maternal- Medicine at [facility] [address] [place] [address] Vy Pemberton MD [address] [facility], [address] [place] [address] documented as of this encounter Visit Diagnoses Not on filedocumented in this encounter
--- OUTSIDE RECORDS SUMMARY | 2024-10-20 09:07 | XMS_ITS | Encounter Summary ---
Author Organization [facility] Address [address] [place] [address] Care Team Providers Care Practice Management Consultant Name Role Phone Omer Velazquez MD Primary Care Provider [phone] Encounter Details Date Type Department Care Team (Late st Contact Info) Description 06/27/2024 Orders Only [facility] [address] [facility] [place] [phone] Symone Hunter [place] [address] [place] [address] Social History Tobacco Use Types Packs/Day Years [...] PM EDT Routine [facility] [address] [facility] [place] [phone] Saravanan Ahumada, DO [address] [facility] [place] [address] 07/24/2025 9:15 AM EDT Office Visit [facility] [address] [place] [phone] documented as of this encounter Goals Goal [...] documented as of this encounter Care Teams Practice Management Consultant Relationship Specialty Start Date End Date Omer Velazquez MD [address] [place] [address] PCP - General Internal Medicine 10/05/22 documented as of this encounter
--- OUTSIDE RECORDS SUMMARY | 2024-10-20 09:07 | XMS_ITS | Encounter Summary ---
Author Organization [facility] tem Address [id number] [address] [place] [address] Care Team Providers Care Director Of Philanthropy Name Role Phone Unavailable Primary Care Provider Unavailabl e Encounter Details Date Type Department Care Team (Latest Contact Info) Description 10/11/2024 Travel Social History Tobacco Use Types Packs/Day [...] AM EDT Office Visit Maternal- Medicine at [facility] [address] [place] [phone] Vy Pemberton MD [address], [address] [place] [address] documented as of this encounter Visit Diagnoses Not on filedocumented in this encounter
--- OUTSIDE RECORDS SUMMARY | 2024-10-20 09:07 | XMS_ITS | Clinical Summary ---
Author Organization [facility] Address [address] [place] [address] Care Team Providers [employer] Name Role Phone Lito Guerrero MD Primary Care Provider [phone] Allergies No known active allergies Medications cholecalciferol (Vitamin D-3) 50 MCG (1999) tablet Take 2 tablets by mouth in the morning. Active MV-Min-Fe Fum-FA-DHA ( 1 PO) Take by mouth Active ammonium lactate (Amlactin) 12 % creamIndications:Xe rosis cutis,Fissure in skin of both feet Apply topically Daily 140 g 3 05/23/19 25 026 Active albuterol HFA (Ventolin HFA) 90 mcg/act inhalerIndications: Seasonal allergies Inhale 2 puffs every 6 (six) hours if needed for wheezing 18 g 5 08/16/19 25 026 Active Alcohol Swabs (Alcohol Prep Pad) 70 % padsIndications:Ges tational diabetes mellitus (GDM), antepartum, gestational diabetes method of control unspecified (HHS-HCC),Elevated glucose tolerance test Apply 1 Pad topically Daily Use four times daily to check FSBS. 150 each 3 08/26/19 25 Active Blood Glucose Monitoring Suppl (D-Care Glucometer) w/Device kitIndications:Gest ational diabetes mellitus (GDM), antepartum, gestational diabetes method of control unspecified (HHS-HCC),Elevated glucose tolerance test 1 kit Daily Use four times daily to check FSBS. In the morning prior to breakfast & 1 hour after each meal for a total of 4times daily. 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 Prime with 2 units. 09/13/19 25 Active acyclovir (Zovirax) 400 MG tabletIndications:H erpes simplex Take 1 tablet (400 mg) by mouth in the morning and 1 tablet (400 mg) before bedtime. 60 tablet 11 10/03/19 25 025 Active iron polysaccharides (ProFe) 391.3 (180 Fe) MG capsuleIndications: Anemia, unspecified type Take 1 capsule (391.3 mg) by mouth Daily 30 capsule 6 10/17/19 25 025 Active Lancets Ultra Thin miscIndications:Ges tational diabetes mellitus (GDM), antepartum, gestational diabetes method of control unspecified (HHS-HCC),Elevated glucose tolerance test 1 each by In Vitro route Daily Use to check FSBS four times daily 150 each 3 08/26/19 25 025 Glucose Blood (Blood Glucose Test) stripIndications:Ge stational diabetes mellitus (GDM), antepartum, gestational diabetes method of control unspecified (HHS-HCC),Elevated glucose tolerance test 1 strip by In Vitro route Daily Use in the morning prior to breakfast, 1 hour after each meal for a total of 4times daily. 150 strip 3 08/26/19 25 025 Active Problems Problem Noted Date Diagnosed Date [...] Encounters Date Type Department Care Team Description 10/17/2024 Clinisync Result Encounter [facility] External Department Unsolicited Negar Ahumada, 10/16/2024 9:00 AM EDT Routine [facility] OB [address] [place] [address] Negar Ahumada, induced hypertension, antepartum ([facility]) (Primary Dx); Third trimester ([facility]); 35 weeks gestation of ([facility]) 10/16/2024 Telephone [facility] [address] [place] [address] Symone Hunter MA 10/16/2024 Clinisync Result Encounter [facility] External Department Unsolicited Provider, Generic External Data 10/16/2024 Bamboo flowsheet [facility] [address] [place] [address] Negar Ahumada, 10/12/2024 Abstract [facility] [address] [place] [address] Negar Ahumada, 10/11/2024 Clinisync Result Encounter [facility] External Department Unsolicited Negar Ahumada, 10/11/2024 Abstract [facility] [address] [place] [address] Negar Ahumada, 10/09/2024 9:00 AM EDT Routine [facility] [address] [place] [address] Negar Ahumada, Third trimester ([facility]); 34 weeks gestation of ([facility]); Herpes simplex virus type 1 (HSV-1) dermatitis; Insulin controlled gestational diabetes mellitus (GDM) during , antepartum ([facility]) 10/09/2024 Bamboo flowsheet [facility] [address] [place] [address] Negar Ahumada, DO 10/04/2024 Clinisync Result Encounter [facility] External Department Unsolicited Provider, Generic External Data 10/02/2024 11:00 AM EDT Routine [facility] [address] [place] [address] Negar Ahumada DO Herpes simplex (Primary Dx); 33 weeks gestation of ([facility]); Encounter for routine care ([facility]); Third trimester ([facility]) 10/02/2024 10:30 AM EDT Ancillary Procedure [facility] [address] [place] [address] History of gestational diabetes 09/27/2024 Clinisync Result Encounter [facility] External Department Unsolicited Provider, Generic External Data 09/25/2024 1:00 PM EDT Routine [facility] [address] [place] [address] Negar Ahumada, Third trimester ([facility]); Insulin controlled gestational diabetes mellitus (GDM) during , antepartum ([facility]); 32 weeks gestation of ([facility]) 09/25/[address] [facility] [address] [place] [address] Negar Ahumada, 09/25/2024 Bamboo flowsheet [facility] [address] [place] [phone] Negar Ahumada, 09/20/2024 Telephone [facility] [address] [place] [address] [place], [place] 09/14/2024 Clinisync Result Encounter [facility] External Department Unsolicited Provider, Generic External Data 09/13/2024 11:30 AM EDT Routine [facility] OB [address] [place] [address] [place] [address] Negar Ahumada DO History of gestational diabetes (Primary Dx); Third trimester ([facility]); 31 weeks gestation of ([facility]) 09/13/2024 Bamboo flowsheet [facility]OM[facility] [address] [place] [address] Negar Ahumada, 09/12/2024 Clinisync Result Encounter [facility] External Department Unsolicited Negar Ahumada, 09/12/20[address] [facility] [address] [place] [address] Gaye Hollis LPN 09/06/2024 1:30 PM EDT Ancillary Procedure [facility] [address] [place] [address] Gestational diabetes mellitus (GDM), antepartum, gestational diabetes method of control unspecified ([facility]) 08/30/2024 11:20 AM EDT Routine [facility]OM[facility] [address] [place] [address] Negar Ahumada, DO 28 weeks gestation of ([facility]); Third trimester ([facility]); Gestational diabetes mellitus (GDM), antepartum, gestational diabetes method of control unspecified ([facility]); Herpes simplex virus type 1 (HSV-1) dermatitis 08/30/2024 Bamboo flowsheet [facility]OM[facility] [address] [place] [address] Negar Ahumada, 08/25/[address] [facility] [address] [place] [address] Symone Hunter MA 08/24/2024 External Result Encounter [facility] External Department Unsolicited Jaime Mccarthy NP 08/23/2024 Clinisync Result Encounter [facility] External Department Unsolicited Provider, Generic External Data 08/23/2024 Travel 08/16/2024 8:30 AM EDT Routine [facility]OM[facility] [address] [place] [address] Rupal Patel PA Second trimester ([facility]); 26 weeks gestation of ([facility]) 08/16/2024 Bamboo flowsheet [facility] [address] [place] [address] Rupal Patel PA 08/14/2024 Telephone [facility] [address] [place] [address] Lito Guerrero MD Med Refill 08/09/2024 Travel 08/07/2024 Clinisync Result Encounter [facility] External Department Unsolicited Provider, Generic External Data from Last 3 Months Immunizations Immunization Administration Dates Next Due DTP 1995,1995 DTaP, Unspecified 08/10/2000,08/04/1996,03/17/19 96 HPV 9-Valent 08/12/2015,04/10/2015,12/05/2014 Hep B, Adolescent or Pediatric 03/17/1996,1995,1995 HiB, unspecified 08/04/1996, 6,1995,06/07 IPV 08/10/2000 Influenza, seasonal, injecta ble, preservative free 01/30/2015 MMR 05/04/2023,08/10/2000,04/21/1996 Meningococcal MCV4P 08/12/2006 Novel [id number], preservative-free 02/13/2009 OPV 03/17/1996,1995,1995 Tdap 06/26/2022 Varicella [...] Start Date Job End Date Works full-time, [employer] Not on file Not on file N ot on file Last Filed Vital Signs Vital Sign Reading Time Taken Comments Blood Pressure 120/86 10/16/2024 9:03 AM EDT Pulse 90 07/18/2024 9:20 AM EDT Temperature - - Respiratory Rate - - Oxygen Saturation 98% 07/18/2024 9:20 AM EDT Inhaled Oxygen Concentration - - Weight 104 kg (229 lb 4 oz) 10/16/2024 9:03 AM E DT Height 160 cm (5' 3 ) 07/18/2024 9:20 AM EDT Body Mass Index 40.61 07/18/2024 9:20 AM EDT Plan of Treatment Upcoming Encounters Date Type Department Care Team (Late st Contact Info) Description 10/23/2024 1:30 PM EDT Routine [facility] [address] [place] [address] Negar Ahumada, [address] [place] [place], [place] [phone] 07/24/2025 9:15 AM EDT Office Visit [facility] [address] [place] [address] Health Maintenance Due Date Last Done Comments Influenza Vaccine (#1) 2024 01/30/2015 Goals Goal Patient Goal Type Associated Problems Recent Progress Patient-Stated? Author Reminders Care Plan OB Reminders No Open Scheduling, Background Procedures Procedure Name Priority Date/Time Associated Diagnosis Comments US OB BPP W NON-STRESS 10/17/2024 4:59 PM EDT ALL LDH Routine 10/16/2024 9:48 AM EDT CCF AST Routine 10/16/2024 9:48 AM EDT ALL URIC ACID Routine 10/16/2024 9:48 AM EDT TBH CREATININE Routine 10/16/2024 9:48 AM EDT ALL BUN Routine 10/16/2024 9:48 AM EDT CCF APTT Routine 10/16/2024 9:48 AM EDT [facility] PROTHROMBIN TIME INR W/O COUM Routine 10/16/2024 9:48 AM EDT ALL CBC WITH AUTO DIFF Routine 9:48 AM EDT POCT URINALYSIS DIPSTICK Routine 10/16/2024 9:12 AM EDT Third trimester ([facility]) US OB BPP W NON-STRESS 10/11/2024 8:42 AM EDT POCT URINALYSIS DIPSTICK Routine 10/09/2024 9:27 AM EDT Third trimester ([facility]) US OB BPP W NON-STRESS 10/04/2024 7:13 AM EDT POCT URINALYSIS DIPSTICK Routine 10/02/2024 11:23 AM EDT 33 weeks gestation of ([facility]) Encounter for routine care ([facility]) Third trimester ([facility]) US OB FOLLOW UP TRANSABDOMINAL APPROACH Routine 10/02/2024 11:00 AM EDT History of gestational diabetes US OB BPP W NON-STRESS 09/27/2024 5:08 PM EDT POCT URINALYSIS DIPSTICK Routine 09/25/2024 1:34 PM EDT Third trimester ([facility]) TBH TOTAL PROTEIN 24 HOUR URINE Routine 09/14/2024 9:30 AM EDT POCT URINALYSIS DIPSTICK Routine 09/13/2024 11:56 AM EDT Third trimester ([facility]) MHPT FIBRINOGEN Routine 09/12/2024 5:24 PM EDT [...] Routine 5:24 PM EDT TBH UA (CLEAN/CATCH) ROLL FORM OPERATOR/MICRO IF IND. Routine 09/12/2024 4:30 PM EDT US OB FOLLOW UP TRANSABDOMINAL APPROACH Routine 09/06/2024 1:55 PM EDT Gestational diabetes mellitus (GDM), antepartum, gestational diabetes method of control unspecified ([facility]) TRANSTHORACIC ECHO (TTE) COMPLETE 08/24/2024 12:39 PM EDT GLUCOSE 1 HOUR Routine 08/23/2024 10:49 AM EDT ALL CBC WITH AUTO DIFF Routine 10:49 AM EDT POCT URINALYSIS DIPSTICK Routine 08/16/2024 8:45 AM EDT Second trimester ([facility]) US OB INCOMPLETE ANATOMY 08/07/2024 9:48 AM EDT from Last 3 Months Results * US OB BPP W NON-STRESS (10/17/2024 4:59 PM EDT) Only the most recent of4 resultswithin the time period is included. Anatomical Region Laterality Modality Other 10/17/2024 4:59 PM EDT Narrative 10/17/2024 5:02 [place] [address] Ultrasound Report Signed Patient: LISSA ROJAS MR#: [id number] : 1995 Acct:[id number] Age/Sex: 29 / F ADM Date: 10/17/24 Loc: [facility] 251-[address]: Negar Ahumada D.O. Ordering Physician: Negar Ahumada D.O. Date of Service: 10/17/24 Procedure(s): US OB BPP w non-stress Accession Number(s): [id number] cc: Negar Ahumada D.O.; LITO GUERRERO [address] [address] Patient Name: LISSA ROJAS MRN: [id number] date: 1995 Sex: F Assigned Patient Location: [facility] Current Patient Location: [facility] Accession/Order Number: [id number] Exam Date: 10/17/2024 16:58 Report Date: 10/17/2024 16:59 At the request of: NEGAR AHUMADA DO [...] Barrett M.D. 10/17/2024 4:59 PM Dictation Location: [place] [address] Electronically authenticated by: [id number] Y Date: 10/17/2024 16:59 Dictated By: Kevin Barrett D.O. Signed By: 10/17/24 1702 DD/ 1659 TD/TT: Plugman: Procedure Note Radiology, Radiologist, - 10/17/2024 [place] [address] Ultrasound Report Signed Patient: LISSA ROJAS FMR#: [id number] : 1995Acct:[id number] Age/Sex: 29 / FADM Date: 10/17/24 Loc: [facility] 251-[address]: Negar Ahumada D.O. Ordering Physician: Negar Ahumada D.O. Date of Service: 10/17/24 Procedure(s): US OB BPP w non-stress Accession Number(s): [id number] cc: Negar Ahumada D.O.; LITO GUERRERO [address] [address] Patient Name: LISSA ROJAS MRN: [facility]:[id number] date: 1995 Sex: F Assigned Patient Location: [facility] Current Patient Location: [facility] Accession/Order Number: [id number] Exam Date: 10/17/2024 16:58 Report Date: 10/17/2024 16:59 At the request of: NEGAR AHUMADA DO [...] Barrett M.D. 10/17/2024 4:59 PM Dictation Location: [place] [address] Electronically authenticated by: [id number] Y Date: 6:59 Dictated By: Kevin Barrett D.O. Signed By:10/17/24 1702 DD/ 1659 TD/TT: Plugman: Negar Ahumada DO [facility] Final Result * (ABNORMAL) TBH CREATININE (10/16/2024 9:48 AM EDT) Only the most recent of2 resultswithin the time period is included. CREATININE 0.52(L) 0.55 - 1.02 mg/dL TBH TBH EGFR-AF MICRONESIAN >60 >=60 mL/min/1.7 3m 2 TBH TBH EGFR-NON AF MICRONESIAN >60 >=60 mL/min/1.7 3m 2 TBH 10/16/2024 9:48 AM EDT 10/16/2024 9:50 AM EDT Narrative [facility] - 10/16/2024 11:27 AM EDT Generic External Data Provider [facility] F inal Result [facility] * [facility] PROTHROMBIN TIME INR W/O COUM (10/16/2024 9:48 AM EDT) Only the most recent of2 resultswithin the time period is included. PROTHROMBIN TIME 9.6 9.0 - 11.6 sec TBH TBH INR <0.93 TBH Comment: DESIRED INR: 2.0-3.0 CONDITIONS NOT LISTED BELOW 2.5-3.5 FOR PROSTHETIC HEART VALVE REPLACEMENT 2.5-3.5 RECURRENT THROMBOSIS 10/16/2024 9:48 AM EDT 10/16/2024 9:50 AM EDT Narrative [facility] - 10/16/2024 10:10 AM EDT Selina Denson NP [facility] Final Result Performing Organization Address [facility] de Phone Number [facility] * (ABNORMAL) CCF AST (10/16/2024 9:48 AM EDT) Only the most recent of2 resultswithin the time period is included. ASPARTATE AMINO TRANSFERASE 12(L) 15 - 37 U/L TB 10/16/2024 9:48 AM EDT 10/16/2024 9:50 AM EDT Narrative [facility] - 10/16/2024 11:27 AM EDT Generic External Data Provider [facility] F inal Result Performing Organization Address [facility] de Phone Number [facility] * CCF APTT (10/16/2024 9:48 AM EDT) Only the most recent of2 resultswithin the time period is included. PARTIAL THROMBOPLASTIN TIME 25.4 22.3 - 36.2 sec TBH 10/16/2024 9:48 AM EDT 10/16/2024 9:50 AM EDT Narrative [facility] - 10/16/2024 10:10 AM EDT Selina Denson NP [facility] Final Result Performing Organization Address [facility] de Phone Number [facility] * ALL URIC ACID (10/16/2024 9:48 AM EDT) Only the most recent of2 resultswithin the time period is included. Pathologist [facility] URIC ACID 3.5 2.6 - 6.0 mg/dL TB 10/16/2024 9:48 AM EDT 10/16/2024 9:50 AM EDT Narrative [facility] - 10/16/2024 11:27 AM EDT Generic External Data Provider [facility] F inal Result Performing Organization Address [facility] Co de Phone Number [facility] * ALL LDH (10/16/2024 9:48 AM EDT) Pathologist [facility] LACTATE DEHYDROGENASE 146 81 - 234 U/L TB 10/16/2024 9:48 AM EDT 10/16/2024 9:50 AM EDT Narrative [facility] - 10/16/2024 11:27 AM EDT Generic External Data Provider [facility] F inal Result Performing Organization Address [facility] de Phone Number [facility] * (ABNORMAL) ALL CBC WITH AUTO DIFF (10/16/2024 9:48 AM EDT) Only the most recent of3 resultswithin the time period is included. Pathologist [facility] TB WBC 9.6 4.0 - 11.0 10 3/uL TBH TB RBC 3.31(L) 4.20 - 5.40 10 6/uL TBH TBH HGB 10.0(L) 12.0 - 16.0 g/dL TB TB HCT 30.0(L) 36.0 - 48.0 % TBH TBH MCV 90.6 81.0 - 99.0 fL TBH TBH MCH 30.2 26.7 - 34.0 pg TBH TBH MCHC 33.3 29.9 - 35.2 g/dL TBH TB RDW 13.1 11.0 - 15.0 % TBH [...] Narrative [facility]IN[facility] - 10/16/2024 10:01 AM EDT us Selina Denson NP [facility] Final Result Performing Organization Address [facility] Co de Phone Number [facility] TB * (ABNORMAL) ALL BUN (10/16/2024 9:48 AM EDT) Only the most recent of2 resultswithin the time period is included. Pathologist [facility] BLOOD UREA NITROGEN 6.0(L) 7.0 - 18.0 mg/dL TBH 10/16/2024 9:48 AM EDT 10/16/2024 9:50 AM EDT Narrative [facility] - 10/16/2024 11:27 AM EDT us Generic External Data Provider [facility] F inal Result Performing Organization Address City/[facility]/ZIP Co de Phone Number [facility] TB * (ABNORMAL) POCT urinalysis dipstick manually resulted (10/16/2024 9:12 AM EDT) Only the most recent of6 resultswithin the time period is included. Color, [...] - Positive Urine 10/16/2024 9:12 AM EDT [facility] POINT OF CARE TEST ENTER/EDIT OR [...] Narrative [facility]IN[facility] - 09/14/2024 11:15 AM EDT Negar Zita DO [facility] Final Result [facility] TBH * (ABNORMAL) MHPT FIBRINOGEN (09/12/2024 5:24 PM EDT) FIBRINOGEN 425(H) 200 - 400 mg/dL TBH 09/12/2024 5:24 PM EDT 09/12/2024 5:33 PM EDT Narrative [facility]IN[facility] - 09/12/2024 6:00 PM EDT Negar Zita DO [facility] Final Result Performing Organization Address [facility]/ZIP Co de Phone Number [facility] * CCF ALT (09/12/2024 5:24 PM EDT) ALANINE AMINOTRANSFERASE 23 14 - 59 U/L TBH 09/12/2024 5:24 PM EDT 09/12/2024 5:33 PM EDT Narrative [facility] - 09/12/2024 5:42 PM EDT Negar Zita DO [facility] Final Result Performing Organization Address [facility]/ZIP Co de Phone Number [facility] * (ABNORMAL) TBH UA (CLEAN/CATCH) ROLL FORM OPERATOR/MICRO IF IND. (09/12/2024 4:30 PM EDT) COLOR [...] us Negar Zita DO [facility] Final Result [facility] TB * Transthoracic echo (TTE) complete (08/24/2024 12:39 PM EDT) Anatomical Region Laterality Modality Heart Ultrasound 08/24/2024 12:3 9 PM EDT Narrative 08/24/2024 6:36 PM EDT [facility] [place] [address] Echocardiogram Signed Patient: Lissa Rojas MR#: [id number] : 1995 Acct:[id number] Age/Sex: 29 / F ADM Date: 08/24/24 Loc: Room: Type: [facility] Attending Dr: Jaime Mccarthy RN, MSN, ANP-C [...] : Transcribed By: SCV Performed At: 08/24/24 9498 Signed By: Iveth Ding MD 08/24/24 0102 Procedure Note Iveth Ding MD - 08/24/2024 [facility] Main [place] [address] [place] [address] Echocardiogram Signed Patient: Lissa Rojas FMR#: [id number] : 1995Acct:[id number] Age/Sex: 29 / FADM Date: 08/24/24 Loc: Room:Type: [facility] Attending Dr: Jaime Mccarthy RN, MSN, ANP-C [...] PM: Transcribed By: SCV Performed At: 08/24/24 1239 Signed By: Iveth Ding MD 08/24/24 9306 Jaime Mccarthy NP CV ECHO PROCEDURES Final Res ult * (ABNORMAL) GLUCOSE 1 HOUR (08/23/2024 10:49 AM EDT) Pathologist [facility] GLUCOSE 1 HOUR 181(H) <130 mg/dL TB 08/23/2024 10:4 9 AM EDT 08/23/2024 10:51 AM EDT Narrative [facility] - 08/23/2024 11:33 AM EDT us Negar Ahumada DO LAB BLOOD ORDERABLES Final Resul t [facility] * US OB INCOMPLETE ANATOMY (08/07/2024 9:48 AM EDT) Anatomical Region Laterality Modality Other 08/07/2024 9:48 AM EDT Narrative 08/07/2024 9:50 [place] [address] Ultrasound Report Signed Patient: LISSA ROJAS MR#: [id number] : 1995 Acct:[id number] Age/Sex: 29 / F ADM Date: 08/04/24 Loc: US Attending Dr: Negar Ahumada D.O. Ordering Physician: Negar Ahumada D.O. Date of Service: 08/04/24 Procedure(s): US OB incomplete anatomy Accession Number(s): [id number] cc: Negar Ahumada D.O.; LITO GUERRERO [place] [id number] Patient Name: LISSA ROJAS MRN: [id number] date: 1995 Sex: F Assigned Patient Location: US Current Patient Location: Accession/Order Number: [id number] Exam Date: 08/07/2024 09:41 Report Date: 08/07/2024 09:48 At the request of: NEAGR AHUMADA DO Procedure: US OB incomplete anatomy [...] Gage M.D. 08/07/2024 9:48 AM Dictation Location: [place] [address] Electronically authenticated by: [id number] Y Date: 08/07/2024 09:48 Dictated By: Paula Gage M.D. Signed By: 08/07/24949 DD/ 7 TD/TT: Plugman: Procedure Note Radiology, Radiologist, - 08/07/2024 [place] [address] Ultrasound Report Signed Patient: CONSTANTINE ROJAS#: [id number] : 1995Acct:[id number] Age/Sex: 29 / FADM Date: 08/04/24 Loc: US Attending Dr: Negar Ahumada D.O. Ordering Physician: Negar Ahumada D.O. Date of Service: 08/04/24 Procedure(s): US OB incomplete anatomy Accession Number(s): [id number] cc: Negar Ahumada D.O.; LITO GUERRERO [place] [id number] Patient Name: LISSA ROJAS MRN: [id number] date: 1995 Sex: F Assigned Patient Location: US Current Patient Location: Accession/Order Number: [id number] Exam Date: 08/07/2024 09:41 Report Date: 08/07/2024 [...] Gage M.D. 08/07/2024 9:48 AM Dictation Location: [place] [address] Electronically authenticated by: [id number] Y Date: 9:48 Dictated By: Paula Gage M.D. Signed By:08/07/24949 DD/ 7 TD/TT: Plugman: Generic External Data Provider [facility] Final Result from Last 3 Months Additional Health Concerns Active Problems Noted Date Diagnosed Date OB Reminders 04/30/2024 Insurance [employer] Care Teams [employer] Teacher Relationship Specialty Start Date End Date Lito Guerrero MD [address] [facility] [address] [place] [address] PCP - General Internal Medicine 10/05/22
--- OUTSIDE RECORDS SUMMARY | 2024-10-20 09:07 | XMS_ITS | Encounter Summary ---
Author Organization [facility] tem Address [id number] [address] [place] [address] Care Team Providers Care Rig Welder Name Role Phone Unavailable Primary Care Provider Unavailabl e Encounter Details Date Type Department Care Team (Late st Contact Info) Description 10/17/2024 Telephone Maternal- Medicine at [facility] [address] [place] [address] Nereyda Bishop LD [address] [place] [address] Social History Tobacco Use Types Packs/Day Years [...] encounter Miscellaneous Notes * Telephone Encounter - MUNIRA Torres - 10/17/2024 1:37 PM EDT Called regarding Dexcom Clarity report from 10/10/2024-10/16/2024. Dr. Pemberton reviewed your blood sugars and does not want to make any changes in your Lantus at this time. Lissa verbalized understanding. documented in this encounter Plan of Treatment Upcoming Encounters Date Type Department Care Team (Late st Contact Info) Description 10/23/2024 8:30 AM EDT Office Visit Maternal- Medicine at [facility] [address] [place] [phone] Vy Pemberton MD [address] [place], [address] [place] [id number] documented as of this encounter Visit Diagnoses Not on filedocumented in this encounter
--- OUTSIDE RECORDS SUMMARY | 2024-10-20 09:07 | XMS_ITS | Clinical Summary ---
Author Organization [facility] tem Address [id number] [address] [place] [address] Care Team Providers Care Sewing Machine Operator Plastic Zipper Name Role Phone Unavailable Primary Care Provider Unavailabl e Allergies No known active allergies Medications [id number] c acid ( 19) 29 mg iron- 1 mg tablet,chewable Chew 1 tablet and swallow in the morning. Active blood-glucose sensor (DEXCOM G7 SENSOR) deviceIndicatio ns:Gestational diabetes requiring insulin,Elevate d blood pressure affecting , antepartum Use to monitor blood glucose. Change every 10 days 5 each 10 09/12/2024 Active insulin glargine (LANTUS SOLOSTAR U-100 INSULIN) 100 unit/mL (3 mL) insulin penIndications: Gestational diabetes requiring insulin Inject 16 units every evening. Prime with 2 units. 15 mL 2 09/20/2024 Active acyclovir (ZOVIRAX) 400 mg tablet Take 1 tablet (400 mg total) by mouth in the morning and 1 tablet (400 mg total) before bedtime. Active Active Problems Problem Noted Date Diagnosed Date Insulin controlled gestation al diabetes mellitus (GDM) in third trimester 09/12/2024 Abnormal liver enzymes 09/12/2024 Elevated blood pressure affecting , ant epartum 09/12/2024 Estimated Date of Delivery Comme nts Yes 11/19/2024 Based on last me nstrual period of 02/13/2024 Encounters Date Type Department Care Team Description 10/17/2024 Telephone Maternal- Medicine at [facility] [address] [place] [address] Kirstin BishoporaMUNIRA vanegas 10/11/2024 2:00 PM EDT Office Visit Maternal- Medicine at [facility] [address] [place] [address] Siria Rebolledo, HORTICULTURE WORKER-JORDAN Insulin controlled gestational diabetes mellitus (GDM) in third trimester (Primary Dx) 10/11/2024 Travel 10/04/2024 Telephone Maternal- Medicine at [facility] [address] [place] [address] Aranza Beltran, ARIC 09/20/2024 11:00 AM EDT Telemedicine Maternal- Medicine at [place] [address] [place] [address] Siria Rebolledo, HORTICULTURE WORKER-MENTAL HEALTH PROGRAM DIRECTOR Insulin controlled gestational diabetes mellitus (GDM) in third trimester (Primary Dx); Gestational diabetes requiring insulin 09/20/2024 Travel 09/18/2024 Orders Only Maternal- Medicine at [place] [address] [facility] [place] [address] Corby Rose, OSEAS Gestational diabetes requiring insulin; Elevated blood pressure affecting , antepartum; Insulin controlled gestational diabetes mellitus (GDM) in third trimester; Abnormal liver enzymes 09/14/2024 Orders Only Maternal- Medicine at [place] [address] [place] [address] Torrie Posada, ARIC 09/12/2024 10:00 AM EDT Office Visit Maternal- Medicine at [place] [address] [place] [address] Ruthann Miller PA-C Insulin controlled gestational diabetes mellitus (GDM) in third trimester; Abnormal liver enzymes; Abnormal genetic test; Gestational diabetes requiring insulin; Elevated blood pressure affecting , antepartum 09/12/2024 Documentation Maternal- Medicine at [place] [address] [place] [address] Ruthann Miller PA-C 09/12/2024 Travel 09/06/2024 Orders Only Maternal- Medicine at [facility] [address] [place] [address] Yesi Meade, HORTICULTURE WORKER-JASVIR 09/05/2024 Telephone Maternal- Medicine at [facility] [address] [place] [address] Aranza Beltran RN 09/05/2024 Orders Only Maternal- Medicine at [facility] [address] [place] [address] Jackson Cruz MD 08/31/2024 1:30 PM EDT Support Visit Maternal- Medicine at [facility] [address] [place] [address] Cristiana Zuñiga, RN Nereyda Bishop LD Gestational diabetes mellitus (GDM) in third trimester, gestational diabetes method of control unspecified (Primary Dx) 08/31/2024 Travel 08/30/2024 Orders Only Maternal- Medicine at [facility] [address] [place] [address] Ref Prov, Not In System 08/30/2024 Abstract Maternal- Medicine at [facility] [address] [place] [address] External, Scanning Provider from Last 3 Months [...] Mass Index 40.28 10/11/2024 2:04 PM EDT Plan of Treatment Upcoming Encounters Date Type Department Care Team (Late st Contact Info) Description 10/23/2024 8:30 AM EDT Office Visit Maternal- Medicine at [facility] [address] [facility] [place] [phone] Vy Pemberton MD [address] [facility], [address] [place] [address] Health Maintenance Due Date Last Done Comments Depression Screening 2007 Adult BMI Follow Up Plan 2013 Influenza Vaccine 11/27/2024 01/30/2015, 02/13/2009 Adult BMI Screening 10/11/2025 10/11/2024 Tobacco Screening 10/11/2025 10/11/2024 Pap Smear 06/20/2027 06/19/2024 DTaP,Tdap and Td [...] specimen collection, clean catch / Unknown 09/12/2024 Ruthann Miller PA-C URINE ORDERABLES Final Resu lt Performing Organization Address City/[facility]/ZIP Co de Phone Number MANUALLY TRANSCRIBED RESULTS * CBC without diff (09/12/2024) CBC, Platelet Ct, and Diff see scanned report MANUALLY TRANSCRIBED RESULTS Blood Venous blood / Unknown 09/12/2024 Ruthann Miller PA-C LAB BLOOD ORDERABLES Final Result MANUALLY TRANSCRIBED RESULTS * Glucose random or fasting- POCT (08/31/2024) External Glucose Fasting Or Random (Fbs) 99 MANUALLY TRANSCRIBED RESULTS Blood Venous blood / Unknown 08/31/2024 Jackson Cruz MD LAB BLOOD ORDERABLES Final Re sult MANUALLY TRANSCRIBED RESULTS * Glucose 1h post 50g load (08/23/2024) Glucose, 1 hr PP 50GM dose 181 MANUALLY TRANSCRIBED RESULTS Blood Venous blood / Unknown us Not In System Ref Prov LAB BLOOD ORDERABLES Breanna l Result MANUALLY TRANSCRIBED RESULTS from Last 3 Months Insurance [employer] Member Subscriber Plan / Payer (Ef fective 2024-Present) Name:Lissa Rivas Relation to Subscriber:Spouse Name:Brenton Rivas Date of :1993 Address: [address] [place] [id number] Payer ID:Not on file Type:Not on file Address: [address] [place] [id number]
[2024-10-20 09:12] VITALS: BP 139/76; PULSE 78
== END 2024-10-20 10:01 | disposition home or self-care (01) ==
LOC: FBCO 09:03 → FBC 09:05
PROVIDERS: PCP Internal Medicine; Visit Provider Obstetrics & Gynecology
DX: O24.419 Gestational diabetes mellitus in pregnancy, unspecified control (principal)
CPT/HCPCS: 59025

== ENCOUNTER 2024-10-23 20:23 | Outpatient (REF) | payer OTHER, SELFPAY ==
--- OUTSIDE RECORDS SUMMARY | 2024-10-23 20:29 | XMS_ITS | CCD ---
Author Organization [facility] ion [facility] Care Team Providers Care Floodplain Manager Name Role Phone LITO VELAZQUEZ Admitting Unavailable [...] Unavailable Lito Velazquez MD Primary Care Provider [phone] Jaime Davies RN Attending Provider Unavailable Primary [...] Referring Unavailable TANTIBHEDHYANGKAMARA, FEDE Attending Unav ailable MINDVALERIE, ORTEGA Referring Unavailable VANESSA VO Attending Unavailable MINDVALERIE, ORTEGA Referring Unavailable МАРИЯ LABOY Attending Unavailable ZITA, SARAVANAN Attending Unavailable ANDREW FERRER Attending Unavailable ZITA, SARAVANAN Attending Unavailable ZITA, SARAVANAN Referring Unavailable ZITA, SARAVANAN Attending Unavailable LITO VELAZQUEZ Attending Unavailable RUPAL PATEL Attending Unavailable ZITA, SARAVANAN Attending Unavailable ZITA, SARAVANAN Referring Unavailable ZITA, SARAVANAN Attending Unavailable LITO VELAZQUEZ Referring Unavailable ROBLES GOLDSMITH Attending Unavailable ZITA, SARAVANAN Attending Unavailable ZITA, SARAVANAN Attending Unavailable ZITA, SARAVANAN Attending Unavailable ZITA, SARAVANAN Attending Unavailable Samson CORBETT, Jaime Ribeiro Other Provider Toña MUKHERJEE, Iveth Attending Provider [phone] Manjula MUKHERJEE, Jassi Perez Attending Provider Gonzalo MUKHERJEE, Kurt Attending Provider Lito Velazquez MD Referring Provider [phone] Lito Velazquez Primary Care Unavailable Gonzalo, Kurt Attending Unavailable Gonzalo, Kurt Admitting Unavailable Lito Velazquez Primary Care Unavailable Gonzalo, Kurt Attending Unavailable Gonzalo, Kurt Admitting Unavailable Jaime Davies Attending Unavailable Jaime Davies Admitting Unavailable Lito Velazquez Primary Care Unavailable NEREYDA ZHENG Attending Unavailable ZITA, SARAVANAN R Referring Unavailable RUTHANN POE Attending Unavailable ZITA, SARAVANAN R Referring Unavailable ALTON REBOLLEDO Attending Unavailable ZITA, SARAVANAN R Referring Unavailable ALTON REBOLLEDO Attending Unavailable ZITA, SARAVANAN R Referring Unavailable VY CORONA Attending Unavailable ZITA, SARAVANAN R Referring Unavailable Medications Current Medications Medication Drug Class(es) Dates Sig (Normalized) Sig (Original) acyclovir 400 mg oral tablet (17 sources) Herpesvirus Nucleoside Analog DNA Polymerase Inhibitor, [...] bedtime. 60 tablet 11 10/02/2024 11/01/2024 Active [id number] 200 actuat albuterol 0.09 mg/actuat metered dose inhaler (20 sources) beta2-Adrenergic Agonist Start: 10-17-2024 take 1 puff(s) by inhalation every four to six hours as needed Start: 08-15-2024 End: 08-15-2025 take 2 puff(s) by inhalation every six hours for wheezing albuterol HFA (Ventolin HFA) 90 mcg/act inhaler Indications: Seasonal allergies Inhale 2 puffs every 6 (six) hours if needed for wheezing 18 g 5 08/15/2024 08/15/2025 Active Blood Glucose Monitoring Sup pl (D-Care Glucometer) w/Device kit (20 sources) Start: 08-25-2024 End: 08-25-2025 [address] (D-Care Glucometer) w/Device kit Indications: Gestational diabetes mellitus (GDM), antepartum, gestational diabetes method of control unspecified ([facility]) , Elevated glucose tolerance test 1 kit [...] Active blood-glucose sensor (DEXCOM G7 SENSOR) device (6 sources) Start: 09-12-2024 blood-glucose sensor (DEXCOM G7 SENSOR) device Indications: Gestational diabetes requiring insulin , Elevated blood pressure affecting , antepartum Use to monitor blood glucose. Change every 10 days 5 each 10 09/12/2024 Active cholecalciferol 0.05 mg oral capsule (20 sources) Vitamin D Start: 10-17-2024 take 1 capsule by mouth once daily take 2 tablets by mouth in the m orning cholecalciferol (Vitamin D-3) 50 MCG (1999) tablet Take 2 tablets by mouth in the morning. Active 3 ml insulin glargine 100 un t/ml pen injector (20 sources) Insulin Analog Start: 10-17-2024 Start: 09-20-2024 insulin glargi ne (LANTUS SOLOSTAR U-100 INSULIN) 100 unit/mL (3 mL) insulin pen Indications: Gestational diabetes requiring insulin Inject 16 units every evening. Prime with 2 units. 15 mL 2 09/20/2024 Active Start: 09-12-2024 End: 09-20-2024 Lantus SoloStar 100 UNIT/ML pen Inject 12 units every evening. Prime with 2 units. 09/12/2024 Active isopropyl alcohol 0.7 ml/ml medicated pad (20 sources) Start: 08-25-2024 Alcohol Swabs (Alcohol Prep Pad) 70 % pads Indications: Gestational diabetes mellitus (GDM), antepartum, gestational diabetes method of control unspecified ([facility]) , Elevated glucose tolerance test Apply 1 Pad topically Daily Use four times daily to check FSBS. 150 each 3 08/25/2024 Active ammonium lactate 120 mg/ml topical lotion (20 sources) Start: 10-17-2024 Start: 05-23-2024 End: 05-23-2025 ammonium lactate (Amlactin) 12 % cream Indications: Xerosis cutis , Fissure in skin of both feet Apply topically Daily 140 g 3 05/23/2024 05/23/2025 Active Pnv No.95-Ferrous Fumarate-F a ( Multivitamins) 28 mg iron- 800 mcg tablet (3 sources) Start: 10-17-2024 take 1 tablet by alverto th once daily Start: 10-17-2024 take 1 tablet by alverto th once daily Pnv No.95-Ferrous Fumarate-Fa ( Multivitamins) 28 mg iron- 800 mcg tablet Active 1 TAB PO Daily October 17, 2024 12:00am Complies with drug therapy PNV no.95/ferrous fum/folic ac ( ORAL) (20 sources) take 1 tablet by alverto th once daily before mealtime PNV no.95/ferrous fum/folic ac ( ORAL) Take 1 tablet by mouth once daily. Active take 1 tablet by alverto th once daily before mealtime PNV no.95/ferrous fum/folic ac ( ORAL) Take 1 tablet by mouth once daily. 0 Active Comment on above: Take 1 tablet by alverto th once daily. polysaccharide iron complex 391 mg oral capsule (4 sources) Start: 10-17-19 End: 11-16-19 take 1 capsule by mouth once daily iron polysaccharides (ProFe) 391.3 (180 Fe) MG capsule Indications: Anemia, unspecified type Take 1 capsule (391.3 mg) by mouth Daily 30 capsule 6 10/16/2024 11/15/2024 Active MV-Min-Fe Fum-FA-DHA ( 1 PO) (20 sources) MV-Min- Fe Fum-FA-DHA ( 1 PO) Take by mouth Active [id number]-xeege acid ( 19) 29 mg iron- 1 mg tablet,chewable (12 sources) aw391-ffnb-dxmxk acid ( 19) 29 mg iron- 1 mg tablet,chewable Chew 1 tablet and swallow in the morning. Active propranolol hydrochloride 40 mg oral tablet (6 sources) beta-Adrenergic Tamiko Start: 10-19-19 take 1 tablet by mouth twice daily Start: 10-18-2024 End: 10-18-2024 Propranolol 40 mg tablet Dis continued 20 MG PO Twice daily October 18, 2024 12:00am October 18, 2024 2:51pm valACYclovir 500 mg oral tablet (20 sources) Herpesvirus Nucleoside Analog DNA Polymerase Inhibitor, Herpes Simplex Virus Nucleoside Analog DNA Polymerase Inhibitor, Herpes Zoster Virus Nucleoside Analog DNA Polymerase Inhibitor Start: 08-30-2024 End: 02-26-2025 take 1 tablet by mouth once daily valACYclovir (Valtrex) 500 MG tablet 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 Take 1 tablet (500 mg) by mouth Daily 30 tablet 5 08/30/2024 02/26/2025 Active Completed/Discontinued Medications Medication Drug Class(es) Dates Sig (Normalized) Sig (Original) acetaminophen 325 mg oral capsule (4 sources) Start: 06-25-2019 End: 10-17-2024 take 2 capsules by mouth every four to six hours as needed for pain Acetaminophen 325 mg capsule Discontinued 650 MG PO EVERY 4-6 HOURS as needed for pain 60 June 25, 2019 12:00am October 17, 2024 9:50am chorionic gonadotropin 01020 unt/ml injectable solution (13 sources) Gonadotropin Start: 02-17-2024 End: 03-17-2024 inject 23406 [IU] by subcutaneous injection once chorionic gonadotropin [...] dose. 0.5 mL 1 10/12/2023 10/12/2023 Active DULoxetine 60 mg delayed release oral capsule (4 sources) Serotonin and Norepinephrine Reuptake Inhibitor Start: 06-25-2019 End: 10-17-2024 take 1 capsule by mouth once daily Duloxetine 60 mg capsule,delayed release(DR/EC) Discontinued 60 MG PO Daily June 25, 2019 12:00am October 17, 2024 9:50am fluticasone propionate 0.05 mg/actuat metered dose nasal [...] morning. 09/20/2024 Discontinued (Patient Stopped On Own) ibuprofen 800 mg oral tablet (4 sources) Nonsteroidal Anti-inflammatory Drug Start: 06-25-2019 End: 10-17-2024 take 1 tablet by mouth three times daily as needed for pain Ibuprofen 800 mg tablet Discontinued 800 MG PO Three times daily as needed for pain June 25, 2019 12:00am October 17, 2024 9:50am iv contrast (will be provided with radiology [...] Translations: [Unspecified asthma, uncomplicated] Chronic Cardiac dysrhythmias (5 sources) Nonsustained ventricular tachycardia ; Translations: [Nonsustained ventricular tachycardia] 10-18-2024 Chronic Cardiac dysrhythmias (12 sources) Palpitations; Translations: [Palpitations] Onset: 5 07-18-2024 [...] Hypertension complicating ; childbirth and the puerperium (9 sources) Hypertension complicating ; Translations: [Unspecified maternal hypertension, unspecified trimester] Onset: 5 09-12-2024 Chronic Hypertension complicating ; childbirth and the puerperium (4 sources) -induced hypertension; Translations: [Gestational [-induced] hypertension without significant proteinuria, unspecified trimester] 10-16-2024 Episodic Inflammatory diseases of female pelvic organs [...] Onset: 4 07-13-2023 Chronic Other liver diseases (8 sources) Liver enzymes abnormal; Translations: [Abnormal levels of other serum enzymes] Onset: 5 09-12-2024 Episodic Other liver diseases (1 source) Abnormal levels of other serum enzymes; Translations: [Abnormal levels of other serum enzymes] Onset: 5 Episodic Other lower respiratory disease (1 source) Dyspnea, unspecified; Translations: [Dyspnea, unspecified] Onset: 5 Episodic Other nervous system disorders [...] conditions (not mental disorders or infectious disease) (10 sources) Cancer cervix screening status; Translations: [Encounter [...] [33 weeks gestation of ] 10-02-2024 Episodic Residual codes; unclassified (2 sources) Gestation period, 34 weeks; Translations: [34 weeks gestation of ] 10-09-2024 Episodic Residual codes; unclassified (2 sources) Gestation period, 35 weeks; Translations: [35 weeks gestation of ] 10-16-2024 Episodic Residual codes; unclassified (1 source) 35 weeks gestation of ; Translations: [35 weeks gestation of ] Onset: Episodic Residual codes; unclassified (2 sources) Gestation period, 36 weeks; Translations: [36 weeks gestation of ] 10-23-2024 Episodic Superficial injury; contusion (4 sources) Contusion of left knee; Translations: [Contusion of left knee, initial encounter] 06-25-2019 Episodic Unclassified (20 sources) OB Reminders Onset: 5 04-30-2024 Unclassified (2 sources) 35 weeks gestation with first . Primary concern is keeping baby and mom safe as she moves toward induction which is scheduled for October 30. 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, unspecified] Onset: 3 12-29-2022 Chronic Viral infection (6 sources) Herpesviral vesicular dermatitis; Translations: [Other herpesviral [...] Range Facility Urinalysis macro (dipstick) panel (U)on 10-23-2024 Bilirubin, UA Negative Negative - 4(70) +++ mg/dL [facility] Blood, UA Negative Negative - 50 Jorge Luis/mcL [facility] Clarity, UA Clear [facility] Color, UA Yellow [facility] Glucose, UA Negative Negative - 1999(110) ++++ mg/dL [facility] Interpretation and review of laboratory results Normal [facility] Ketones, UA Negative Negative - 160(16) ++++ mg/dL [facility] Leukocytes, UA Negative Negative - 500+++ Flori/mcL [facility] Nitrite, UA Negative Negative - Positive [facility] pH, UA 7 5 - 9 [facility] Protein, UA Negative Negative - 1999(20) ++++ mg/dL [facility] Spec Grav, UA 1.015 1 - 1.03 [facility] Urobilinogen, UA 0.2 0.2 - 12 mg/dL [facility] hospital [facility] echo transthoracicon [facility] echo transthoracic [facility] Main [address] [address] Echocardiogram Signed Patient: Lissa Rivas MR#: [id number] : 1995 Acct:[id number] Age/Sex: 29 / F ADM Date: 10/18/24 Loc: Room: Type: [facility] Attending Dr: Kurt Sánchez MD Ordering Provider: Kurt Sánchez MD Date of Service: 10/18/24 [facility] echo transthoracic: I47.10 - Supraventricular tachycardia, unspecified Copies to: MD Kurt Donaldson MD Weight: 227 lb Performed By: Marsha Ventura [facility] BSA: 2.0 m2 Reason For Study: I47.10 - Supraventricular tachycardia, unspecified History: 35 weeks Interpretation Summary The left ventricular size, thickness and function are normal The left ventricular wall motion is normal. Ejection Fraction = 55-60%. A variety of Doppler measurements indicate impaired left ventricular relaxation, which is associated with grade I/IV or mild diastolic dysfunction. The left atrium appears mildly dilated. Compared to prior study, changes are noted. Previous study did not report diastolic dysfunction and dilated left atrium. Procedure/Quality: A two-dimensional transthoracic echocardiogram with color flow and Doppler was performed. The study was technically good in quality. Left Ventricle: The left ventricular size, thickness and function are normal. Ejection Fraction = 55-60%. A variety of Doppler measurements indicate impaired left ventricular relaxation, which is associated with grade I/IV or mild diastolic dysfunction. The left ventricular wall motion is normal. Left Atrium: The left atrium appears mildly dilated. The atrial septum appears normal. Right Atrium: The right atrium appears normal in size. Right Ventricle: The right ventricular size, thickness and function are normal. Aortic Valve: The aortic valve is normal in structure and function. No aortic regurgitation is present. Mitral Valve: The mitral valve is normal in structure and function. There is no mitral regurgitation noted. Tricuspid Valve: The tricuspid valve is normal in structure and function. No tricuspid regurgitation. Pulmonic Valve: The pulmonic valve is normal in structure and function. Arteries: The aortic root is normal size. Pericardium/Pleura: No pericardial effusion seen. There is no pleural effusion. IVC/Hepatic Veins: The inferior vena cava is normal in size, with a normal collapsibility index. Measurements with Normals IVSd: 1.1 cm (0.7-1.1 cm)LVIDd: 4.7 cm (3.7-5.4 cm) LVPWd: 1.2 cm (0.7-1.1 cm)LVIDs: 3.5 cm (2.3-3.6 cm) LA dimension: 4.6 cm(2.3-4.0 cm)asc Aorta Diam: 2.9 cm(2.1-3.4cm) Doppler with Normals RVSP(TR): 26.6 mmHg (18-35mmHg) LV V1 max: 78.6 cm/sec (0.7-1.7m/s)MV E max bernice: 70.8 cm/sec(0.8-1.3m/s) MV A max bernice: 93.1 cm/sec(0.0-0.0m/s) MV E/A: 0.76 (<1.5) MMode/2D Measurements Calculations RVDd: 3.5 cm FS: 24.7 % LVOT diam: 2.1 cm LVLd ap4: 7.1 cm TAPSE: 2.9 cm EDV(Teich): LVOT area: 3.5 cm2 EDV(MOD-sp4): RV S Bernice: 100.9 ml 138.0 ml 18.0 cm/sec ESV(Teich): LVLs ap4: 6.5 cm 51.5 ml ESV(MOD-sp4): EF(Teich): 48.9 % 58.5 ml EF(MOD-sp4): 57.6 % __ SV(MOD-sp4): LAV(MOD-sp4): LA A2 area: 16.2 cm2 79.5 ml 80.8 ml LAV(MOD-sp2): LA A4 area: 22.0 cm2 49.6 ml LA length (vol): 5.2 cm LA vol: 58.2 ml LA vol index: 28.5 ml/m2 Doppler Measurements Calculations MV dec time: E/E' lat: 9.6 MV dec slope: Ao V2 max: 0.13 sec E/E' med: 9.2 140.3 cm/sec 525.8 cm/sec2 Ao max P.9 mmHg Ao mean P.6 mmHg Ao V2 mean: 94.1 cm/sec Ao V2 VTI: 21.8 cm LASHAE(I,D): 2.3 cm2 LASHAE(V,D): 1.9 cm2 __ LV V1 max PG: TV max PG: TR max bernice: 2.5 mmHg 24.0 mmHg 242.8 cm/sec LV V1 mean PG: TR max P.6 mmHg 1.4 mmHg RAP systole: 3.0 mmHg LV V1 mean: 56.0 cm/sec LV V1 VTI: 14.3 cm Transcribed By: SCV Performed At: 10/18/24 1520 Signed By: Tacos King MD 10/18/24 1553 [facility] OB BPP W NON-STRESS on 10-17-2024 [place] [address] Ultrasound Report Signed Patient: LISSA RIVAS MR#: [id number] : 1995 Acct:[id number] Age/Sex: 29 / F ADM Date: 10/17/24 Loc: [facility] 251-[address]: Saravanan Ahumada D.O. Ordering Physician: Saravanan Ahumada D.O. Date of Service: 10/17/24 Procedure(s): US OB BPP w non-stress Accession Number(s): [id number] cc: Saravanan Ahumada D.O.; LITO VELAZQUEZ [address] [address] Patient Name: LISSA RIVAS MRN: [facility]:[id number] date: 1995 Sex: F Assigned Patient Location: [facility] Current Patient Location: [facility] Accession/Order Number: [id number] Exam Date: 10/17/2024 16:58 Report Date: 10/17/2024 [...] Barrett M.D. 10/17/2024 4:59 PM Dictation Location: [place] [address] Electronically authenticated by: [id number] Y Date: 10/17/2024 16:59 Dictated By: Kevin Barrett D.O. Signed By: 10/17/24 1702 DD/ 165 TD/TT: Benefits Manager: [facility] Radiology, Radiologist, MD - 10/17/2024 [place] [address] Ultrasound Report Signed Patient: LISSA RIVAS MR#: [id number] : 1995 Acct:[id number] Age/Sex: 29 / F ADM Date: 10/17/24 Loc: [facility] 251-[address]: Saravanan Ahumada D.O. Ordering Physician: Saravanan Ahumada D.O. Date of Service: 10/17/24 Procedure(s): US OB BPP w non-stress Accession Number(s): [id number] cc: Saravanan Ahumada D.O.; LITO VELAZQUEZ [place] [id number] Patient Name: LISSA RIVAS MRN: [facility]:[id number] date: 1995 Sex: F Assigned Patient Location: [facility] Current Patient Location: [facility] Accession/Order Number: [id number] Exam Date: 10/17/2024 16:58 Report Date: 10/17/2024 [...] Barrett M.D. 10/17/2024 4:59 PM Dictation Location[facility] Electronically authenticated by: [id number] Y Date: 10/17/2024 16:59 Dictated By: Kevin Barrett D.O. Signed By: 10/17/241701 DD/ 58 TD/TT: Benefits Manager: [facility] Radiology Study observation (narrative) [facility] US OB BPP W NON-STRESS Ordered By: Radiologist Radiology on 10-17-2024 [facility] Work Phone: ALL CBC WITH AUTO DIFFon BASOPHILS ABSOLUTE AUTO [address] [facility] Basophils/100 WBC (Bld) 0.2 % 0.2 - 2.0 % [facility] Eosinophils/100 WBC (Bld) 1.4 % 0.9 - 7.0 % [facility] Erythrocyte distribution width (RBC) [Ratio] 13.1 % 11.0 - 15.0 % [facility] Hematocrit (Bld) [Volume fraction] 30 % Low 36.0 - 48.0 % [facility] Hemoglobin (Bld) [Mass/Vol] 10 g/dL Low 12.0 - 16.0 g/dL [facility] IMMATURE GRANULOCYTES ABS AUTO 0.08 High [facility] Immature granulocytes/100 WBC (Bld) 0.8 % High 0.0 - 0.5 % [facility] Interpretation and review of laboratory results Abnormal [facility] LYMPHOCYTES ABSOLUTE AUTO 1.9 [facility] Lymphocytes/100 WBC (Bld) 20.3 % Low 20.5 - 60.0 % [facility] MCH (RBC) [Entitic mass] 30.2 pg 26. 7 - 34.0 pg [facility] MCHC (RBC) [Mass/Vol] 33.3 g/dL 29.9 - 35.2 g/dL [facility] MCV (RBC) [Entitic vol] 90.6 fL 81.0 - 99.0 fL [facility] Monocytes/100 WBC (Bld) 7.9 % 1.7 - 12.0 % [facility] NEUTROPHILS ABSOLUTE AUTO 6.6 High [facility] Neutrophils/100 WBC (Bld) 69.4 % 43.0 - 75.0 % [facility] Platelet mean volume (Bld) [Entitic vol] 10.4 fL 9.5 - 13.5 fL [facility] TBH EO # 0.1 [facility] TBH PLT 215 [facility] TB RBC 3.31 Low [facility] TBH WBC 9.6 [facility] Urinalysis macro (dipstick) panel (U)on 10-16-2024 Bilirubin, UA Negative Negative - 4(70) +++ mg/dL [facility] Blood, UA Negative Negative - 50 Jorge Luis/mcL [facility] Clarity, UA Clear [facility] Color, UA Yellow [facility] Glucose, UA Negative Negative - 1999(110) ++++ mg/dL [facility] Interpretation and review of laboratory results Abnormal [facility] Ketones, UA Negative Negative - 160(16) ++++ mg/dL [facility] Leukocytes, UA Negative Negative - 500+++ Flori/mcL [facility] Nitrite, UA Negative Negative - Positive [facility] pH, UA 7 5 - 9 [facility] Protein, UA Trace Negative - 1999(20) ++++ mg/dL [facility] Spec Grav, UA 1.015 1 - 1.03 [facility] Urobilinogen, UA 1.0 0.2 - 12 mg/dL [facility] US OB BPP W NON-STRESS on 10-11-[address] [address] Ultrasound Report Signed Patient: LISSA RIVAS Andrés MR#: [id number] : 1995 Acct:[id number] Age/Sex: 29 / F ADM Date: 10/10/24 Loc: US Attending Dr: Saravanan Ahumada D.O. Ordering Physician: Saravanan Ahumada D.O. Date of Service: 10/10/24 Procedure(s): US OB BPP w non-stress Accession Number(s): [id number] cc: Saravanan Ahumada D.O.; LITO VELAZQUEZ [place] [address] Patient Name: LISSA RIVAS MRN: [facility]:[id number] date: 1995 Sex: F Assigned Patient Location: Current Patient Location: Accession/Order Number: [id number] Exam Date: 10/11/2024 08:41 Report Date: 10/11/2024 [...] This is in normal range. Total score: 11/03 US/US OB BPP w non-stress IMPRESSION: NORMAL BIOPHYSICAL PROFILE Impression dictated by: Paula Gage M.D. 10/11/2024 8:42 AM Dictation Location: [place] [address] Electronically authenticated by: [id number] Y Date: 10/11/2024 08:42 Dictated By: Paula Gage M.D. Signed By: 10/11/24 0845 DD/ 0842 TD/TT: Benefits Manager: [facility] Radiology, Radiologist, - 10/11/2024 [place] [address] Ultrasound Report Signed Patient: LISSA RIVAS MR#: [id number] : 1995 Acct:[id number] Age/Sex: 29 / F ADM Date: 10/10/24 Loc: US Attending Dr: Saravanan Ahumada D.O. Ordering Physician: Saravanan Ahumada D.O. Date of Service: 10/10/24 Procedure(s): US OB BPP w non-stress Accession Number(s): [id number] cc: Saravanan Ahumada D.O.; LITO VELAZQUEZ [place] [address] Patient Name: LISSA RIVAS MRN: [facility]:[id number] date: 1995 Sex: F Assigned Patient Location: [place] Current Patient Location: Accession/Order Number: [id number] Exam Date: 10/11/2024 08:41 Report Date: 10/11/2024 [...] This is in normal range. Total score: 11/03 US/US OB BPP w non-stress IMPRESSION: NORMAL BIOPHYSICAL PROFILE Impression dictated by: Paula Gage M.D. 10/11/2024 8:42 AM Dictation Location: [place] [address] Electronically authenticated by: [id number] Y Date: 10/11/2024 08:42 Dictated By: Paula Gage M.D. Signed By: 10/11/24 0845 DD/ 1 TD/TT: Benefits Manager: [facility] Radiology Study observation (narrative) [facility] US OB BPP W NON-STRESS Ordered By: Radiologist Radiology on 10-11-2024 [facility] Work Phone: Urinalysis macro (dipstick) panel (U)on 10-09-2024 Bilirubin, UA Negative Negative - 4(70) +++ mg/dL [facility] Blood, UA Negative Negative - 50 Jorge Luis/mcL [facility] Clarity, UA Clear [facility] Color, UA Yellow [facility] Glucose, UA Negative Negative - 2000(110) ++++ mg/dL [facility] Interpretation and review of laboratory results Abnormal [facility] Ketones, UA Negative Negative - 160(16) ++++ mg/dL [facility] Leukocytes, UA Moderate Negative - 500+++ Flori/mcL [facility] Nitrite, UA Negative Negative - Positive [facility] pH, UA 7.5 5 - 9 [facility] Protein, UA Negative Negative - 2000(20) ++++ mg/dL [facility] Hospital Spec Grav, UA 1.01 1 - 1.03 [facility] Urobilinogen, UA 0.2 0.2 - 12 mg/dL Critical access hospital US OB BPP W NON-STRESS on 10-04-2024 [place] [address] Ultrasound Report Signed Patient: LISSA RIVAS MR#: [id number] : 1995 Acct:[id number] Age/Sex: 29 / F ADM Date: 10/03/24 Loc: US Attending Dr: Saravanan Ahumada D.O. Ordering Physician: Saravanan Ahumada D.O. Date of Service: 10/03/24 Procedure(s): US OB BPP w non-stress Accession Number(s): [id number] cc: Saravanan Ahumada D.O.; LITO VELAZQUEZ [address] [id number] Patient Name: LISSA RIVAS MRN: [facility]:[id number] date: 1995 Sex: F Assigned Patient Location: Current Patient Location: Accession/Order Number: [id number] Exam Date: 10/04/2024 07:11 Report Date: 10/04/2024 [...] Gage M.D. 10/04/2024 7:13 AM Dictation Location: [place] [address] Electronically authenticated by: [id number] Y Date: 10/04/2024 07:13 Dictated By: Paula Gage M.D. Signed By: 10/04/24715 DD/ 2 TD/TT: Benefits Manager: [facility] Radiology, Radiologist, - 10/04/2024 [place] [address] Ultrasound Report Signed Patient: LISSA RIVAS MR#: [id number] : 1995 Acct:[id number] Age/Sex: 29 / F ADM Date: 10/03/24 Loc: US Attending Dr: Saravanan Ahumada D.O. Ordering Physician: Saravanan Ahumada D.O. Date of Service: 10/03/24 Procedure(s): US OB BPP w non-stress Accession Number(s): [id number] cc: Saravanan Ahumada D.O.; LITO VELAZQUEZ [place] [address] Patient Name: LISSA RIVAS MRN: [id number]:[id number] date: 1995 Sex: F Assigned Patient Location: US Current Patient Location: Accession/Order Number: [id number] Exam Date: 10/04/2024 07:11 Report Date: 10/04/2024 [...] Gage M.D. 10/04/2024 7:13 AM Dictation Location: [place] [address] Electronically authenticated by: [id number] Y Date: 10/04/2024 07:13 Dictated By: Paula Gage M.D. Signed By: 10/04/24715 DD/ 2 TD/TT: Benefits Manager: [facility] Radiology Study observation (narrative) [facility] US OB BPP W NON-STRESS Ordered By: Radiologist Radiology on 10-04-2024 [facility] Work Phone: US OB FOLLOW UP TRANSABDOMIN [...] UA Negative Negative - 4(70) +++ mg/dL [facility] Blood, UA Negative Negative - 50 Jorge Luis/mcL [facility] Clarity, UA Clear [facility] Color, UA Yellow [facility] Glucose, UA Negative Negative - 2000(110) ++++ mg/dL [facility] Interpretation and review of laboratory results Abnormal [facility] Ketones, UA Negative Negative - 160(16) ++++ mg/dL [facility] Leukocytes, UA Negative Negative - 500+++ Flori/mcL [facility] Nitrite, UA Negative Negative - Positive [facility] pH, UA 7 5 - 9 [facility] Protein, UA Trace Negative - 1999(20) ++++ mg/dL [facility] Spec Grav, UA 1.01 1 - 1.03 [facility] Urobilinogen, UA 0.2 0.2 - 12 mg/dL Critical access hospital US OB BPP W NON-STRESS on 09-27-2024 [place] [address] Ultrasound Report Signed Patient: LISSA RIVAS MR#: [id number] : 1995 Acct:[id number] Age/Sex: 29 / F ADM Date: 09/27/24 Loc: [facility] 250-[address]: Saravanan Ahumada D.O. Ordering Physician: Saravanan Ahumada D.O. Date of Service: 09/27/24 Procedure(s): US OB BPP w non-stress Accession Number(s): [id number] cc: Saravanan Ahumada D.O.; LITO VELAZQUEZ [place] [address] Patient Name: LISSA RIVAS MRN: [facility]:[id number] date: 1995 Sex: F Assigned Patient Location: [facility] Current Patient Location: [facility] Accession/Order Number: [id number] Exam Date: 09/27/2024 17:07 Report Date: 09/27/2024 17:08 At the request of: SARAVANAN AHUMADA DO Procedure: US OB BPP w non-stress Biophysical profile. Reason for exam: Gestational diabetes. COMPARISON: None. TECHNIQUE: Transabdominal imaging of the gravid uterus was obtained. FINDINGS: The special machine stitcher reports the biophysical profile of 8 out of 8. RAKESH is normal at 18.6 cm. heart rate 145 bpm. US/US OB BPP w non-stress IMPRESSION: BPP 8 out of 8. Impression dictated by: Navjot Harmon Jr., D.O. 09/27/2024 5:08 PM Dictation Location: [place] [address] Electronically authenticated by: [id number] Y Date: 09/27/2024 17:08 Dictated By: Navjot Harmon M.D. Signed By: 09/27/241710 DD/ 07 TD/TT: Benefits Manager: [facility] Radiology, Radiologist, MD - 09/27/2024 [place] [address] Ultrasound Report Signed Patient: LISSA RIVAS MR#: [id number] : 1995 Acct:[id number] Age/Sex: 29 / F ADM Date: 09/27/24 Loc: [place] [address]: Saravanan Ahumada D.O. Ordering Physician: Saravanan Ahumada D.O. Date of Service: 09/27/24 Procedure(s): US OB BPP w non-stress Accession Number(s): [id number] cc: Saravanan Ahumada D.O.; LITO VELAZQUEZ [place] [address] Patient Name: LISSA RIVAS MRN: [facility]:[id number] date: 1995 Sex: F Assigned Patient Location: [facility] Current Patient Location: [facility] Accession/Order Number: [id number] Exam Date: 09/27/2024 17:07 Report Date: 09/27/2024 17:08 At the request of: SARAVANAN AHUMADA DO Procedure: US OB BPP w non-stress Biophysical profile. Reason for exam: Gestational diabetes. COMPARISON: None. TECHNIQUE: Transabdominal imaging of the gravid uterus was obtained. FINDINGS: The special machine stitcher reports the biophysical profile of 8 out of 8. RAKESH is normal at 18.6 cm. heart rate 145 bpm. US/US OB BPP w non-stress IMPRESSION: BPP 8 out of 8. Impression dictated by: Navjot Harmon Jr., D.O. 09/27/2024 5:08 PM Dictation Location: [place] [address] Electronically authenticated by: [id number] Y Date: 09/27/2024 17:08 Dictated By: Navjot Harmon M.D. Signed By: 09/27/24 171 DD/ 07 TD/TT: Benefits Manager: [facility] Radiology Study observation (narrative) [facility] US OB BPP W NON-STRESS Ordered By: Radiologist Radiology on 09-27-2024 [facility] Work Phone: Urinalysis macro (dipstick) panel (U)on 09-25-2024 Bilirubin, UA Negative Negative - 4(70) +++ mg/dL [facility] Blood, UA Negative Negative - 50 Jorge Luis/mcL [facility] Clarity, UA Clear [facility] Color, UA Yellow [facility] Glucose, UA Negative Negative - 2000(110) ++++ mg/dL [facility] Interpretation and review of laboratory results Abnormal [facility] Ketones, UA Positive Negative - 160(16) ++++ mg/dL [facility] Comment on above: 15mg/dL Leukocytes, UA Negative Negative - 500+++ Flori/mcL [facility] Nitrite, UA Negative Negative - Positive [facility] pH, UA 7 5 - 9 [facility] Protein, UA Positive Negative - 2000(20) ++++ mg/dL [facility] Comment on above: 30mg/dL Spec Grav, UA 1.02 1 - 1.03 [facility] Urobilinogen, UA 0.2 0.2 - 12 mg/dL Critical access hospital TBH TOTAL PROTEIN 24 HOUR UR INEon 09-14-2024 Interpretation and review of laboratory results Abnormal [facility] Protein (U) [Mass/Vol] 16.8 mg/dL High NINF - 11.9 mg/dL [facility] TBH TOTAL PROTEIN 24 HOUR URINE 420 [facility] TOTAL VOLUME 24 HOUR URINE 2500 mL/24hr [facility] Urinalysis macro (dipstick) panel (U)on 09-13-2024 Bilirubin, UA Negative Negative - 4(70) +++ mg/dL [facility] Blood, UA Negative Negative - 50 Jorge Luis/mcL [facility] Clarity, UA Clear [facility] Color, UA Yellow [facility] Glucose, UA Negative Negative - 2000(110) ++++ mg/dL [facility] Interpretation and review of laboratory results Normal [facility] Ketones, UA Negative Negative - 160(16) ++++ mg/dL [facility] Leukocytes, UA Negative Negative - 500+++ Flori/mcL [facility] Nitrite, UA Negative Negative - Positive [facility] pH, UA 7 5 - 9 [facility] Protein, UA Negative Negative - 2000(20) ++++ mg/dL [facility] Spec Grav, UA 1.02 1 - 1.03 [facility] Urobilinogen, UA 0.2 0.2 - 12 mg/dL Critical access hospital CBC without diffon CBC, Platelet Ct, and Diff see scanned report [facility] No Panel Informationon 09-12 [facility] TBH UA (CLEAN/CATCH) AUDIO VISUAL DESIGN ENGINEER/PO RO IF IND.on 09-12-2024 BILIRUBIN URINE Negative NEGATIVE [facility] BLOOD URINE Negative NEGATIVE [facility] Clarity (U) CLEAR CLEAR [facility] Color (U) LT. YELLOW YELLOW [facility] GLUCOSE URINE UA Negative NEGATIVE mg/dL [facility] Interpretation and review of laboratory results Abnormal [facility] Ketones Ql (U) TRACE Abnormal NEGATIVE mg/dL [facility] Leukocyte esterase Test strip Ql (U) Negative NEGATIVE [facility] NITRITE URINE Negative NEGATIVE [facility] pH (U) 6.5 [pH] 5.0 - 9.0 [facility] PROTEIN URINE Negative NEG/TRACE mg/dL [facility] SPECIFIC GRAVITY URINE <=1.005 Abnormal 1.005 - 1.025 [facility] URINE MICROSCOPIC INDICATED NO [facility] UROBILINOGEN URINE 0.2 EU/dL 0.2 - 1.0 EU/dL [facility] Urine protein creatinine rat ioon 09-12-2024 Protein/Creatinine (U) [Mass ratio] see scanned report [facility] US OB FOLLOW UP TRANSABDOMIN AL APPROACHon [...] II, MD, PHD at 08-Sep-2024 10:22:30 AM [facility] Normal Not Available Comment on above: Order Comment: US OB SCAN FOR GROWTH Estimated Date of Delivery: 11/19/24 Gestational Age as of 08/30/2024: 28w3d LYNDSAYOVon 09-05-2024 CNOV Office Visit (OTMNCA ) LISSA RIVAS ([id number]) 1995 F Date Time Provider Department 09/05/24 [...] МАРИЯ LABOY on 09/19/24 Normal [facility] METANEPHRINES, FREE PLASMAon 09-04-2024 METANEPHRINE, PLASMA 19 pg/mL Normal 12- [facility] Comment on above: Order Comment: Speci men Type: BLOOD SPECIMENOrdering Facility: [facility] Address: [address] [place] [address] Result Comment: Refe rence Ranges: Hypertensive adult > or = 18 yrs old: 12-72 pg/mL Normotensive adult > or = 18 yrs old: 12-67 pg/mL Normotensive children < 18 yrs old: 10-95 pg/mL Performed By: #### P METAN ####[facility] LABIA [id number] [place] [address] [place] NORMETANEPHRINE, PLASMA 56 pg/mL Normal 18-101 [facility] Comment on above: Order Comment: Jarek leger Type: BLOOD SPECIMENOrdering Facility: [facility] Address: [address] [place] [address] Result Comment: Refe rence Ranges: Hypertensive adult > or = 18 yrs old: 24-145 pg/mL Normotensive adult > or = 18 yrs old: 18-101 pg/mL Normotensive children < 18 yrs old: 22-83 pg/mL Methyldopa may cause false elevation of normetanephrine levels in this assay. If patient is on methyldopa, interpret results with caution. Performed By: #### P METAN ####[facility] [id number] [place] [address] [place] Glucose random or fasting- P OCTon 08-31-2024 External Glucose Fasting Or Random (Fbs) 99 [facility] Ultrasound - Officeon 2024 Radiology Study observation (narrative) [facility] Radiology Study observation (narrative) [facility] ECH echo transthoracicon ECH echo transthoracic [facility] [place] [address] Echocardiogram Signed Patient: Lissa Rivas MR#: [id number] : 1995 Acct:[id number] Age/Sex: 29 / F ADM Date: 08/24/24 Loc: Room: Type: [facility] Attending Dr: Jaime Davies RN, MSN, ANP-C Ordering Provider: JAIME DAVIES RN, MSN Date of Service: 08/24/24/ ECH/ECH echo transthoracic: Palpitations. Murmur. Copies to: MD SAMSON Mckeon MICHELE L RN, MSN Lissa Bowen 12:39 PM [facility] 1995 Gender: Female (MM/DD/YYYY) Age: 29 Years [...] 1239 Signed By: Iveth Ding MD 08/24/24 3554 Normal [facility] ALL CBC WITH AUTO DIFFon BASOPHILS ABSOLUTE AUTO 0 [facility] Basophils/100 WBC (Bld) 0.3 % 0.2 - 2.0 % [facility] Eosinophils/100 WBC (Bld) 1.4 % 0.9 - 7.0 % [facility] Erythrocyte distribution width (RBC) [Ratio] 13 % 11.0 - 15.0 % [facility] Hematocrit (Bld) [Volume fraction] 32 % Low 36.0 - 48.0 % [facility] Hemoglobin (Bld) [Mass/Vol] 10.6 g/dL Low 12.0 - 16.0 g/dL [facility] IMMATURE GRANULOCYTES ABS AUTO 0.06 High [facility] Immature granulocytes/100 WBC (Bld) 0.7 % High 0.0 - 0.5 % [facility] Interpretation and review of laboratory results Abnormal [facility] LYMPHOCYTES ABSOLUTE AUTO 1.7 [facility] Lymphocytes/100 WBC (Bld) 18.8 % Low 20.5 - 60.0 % [facility] MCH (RBC) [Entitic mass] 31.6 pg 26. 7 - 34.0 pg [facility] MCHC (RBC) [Mass/Vol] 33.1 g/dL 29.9 - 35.2 g/dL [facility] MCV (RBC) [Entitic vol] 95.5 fL 81.0 - 99.0 fL [facility] MONOCYTES ABSOLUTE AUTO 0.5 N [facility] Monocytes/100 WBC (Bld) 5.3 % 1.7 - 12.0 % [facility] NEUTROPHILS ABSOLUTE AUTO 6.5 [facility] Neutrophils/100 WBC (Bld) 73.5 % 43.0 - 75.0 % [facility] Platelet mean volume (Bld) [Entitic vol] 9.8 fL 9.5 - 13.5 fL [facility] TBH EO # 0.1 [facility] PLT 211 [facility] TB RBC 3.35 Low [facility] WBC 8.8 [facility] Glucose 1h post 50g loadon 0 08-23-2024 Glucose, 1 hr PP 50GM dose 181 [facility] No Panel Informationon 08-23 [facility] Urinalysis macro (dipstick) panel (U)on 08-16-2024 Bilirubin, UA Negative Negative - 4(70) +++ mg/dL [facility] Blood, UA Negative Negative - 50 Jorge Luis/mcL [facility] Clarity, UA Clear [facility] Color, UA Yellow [facility] Glucose, UA Positive Negative - 1999(110) ++++ mg/dL [facility] Comment on above: 100mg/dL Interpretation and review of laboratory results Abnormal [facility] Ketones, UA Positive Negative - 160(16) ++++ mg/dL [facility] Comment on above: 15mg/dL Leukocytes, UA Negative Negative - 500+++ Flori/mcL [facility] Nitrite, UA Negative Negative - Positive [facility] pH, UA 6.5 5 - 9 [facility] Protein, UA Negative Negative - 2000(20) ++++ mg/dL [facility] Spec Grav, UA 1.02 1 - 1.03 [facility] Urobilinogen, UA 0.2 0.2 - 12 mg/dL Critical [facility] hospital US OB INCOMPLETE ANATOMYon 0 08-07-2024 [place] [address] Ultrasound Report Signed Patient: LISSA RIVAS MR#: [id number] : 1995 Acct:[id number] Age/Sex: 29 / F ADM Date: 08/04/24 Loc: US Attending Dr: Saravanan Ahumada D.O. Ordering Physician: Saravanan Ahumada D.O. Date of Service: 08/04/24 Procedure(s): US OB incomplete anatomy Accession Number(s): [id number] cc: Saravanan Ahumada D.O.; LITO VELAZQUEZ [address] [address] Patient Name: LISSA RIVAS MRN: [facility]:[id number] date: 1995 Sex: F Assigned Patient Location: US Current Patient Location: Accession/Order Number: [id number] Exam Date: 08/07/2024 09:41 Report Date: 08/07/2024 [...] 08/07/2024 9:48 AM Dictation Location: [place] [address] Electronically authenticated by: [id number] Y Date: 08/07/2024 09:48 Dictated By: Paula Gage M.D. Signed By: 08/07/2450 DD/ TD/TT: Benefits Manager: [facility] Radiology, Radiologist, MD - 08/07/[address] [address] Ultrasound Report Signed Patient: LISSA RIVSA MR#: [id number] : 1995 Acct:[id number] Age/Sex: 29 / F ADM Date: 08/04/24 Loc: US Attending Dr: Saravanan Ahumada D.O. Ordering Physician: Saravanan Ahumada D.O. Date of Service: 08/04/24 Procedure(s): US OB incomplete anatomy Accession Number(s): [id number] cc: Saravanan Ahumada D.O.; LITO VELAZQUEZ [address] [address] Patient Name: LISSA RIVAS MRN: [facility]:[id number] date: 1995 Sex: F Assigned Patient Location: US Current Patient Location: Accession/Order Number: [id number] Exam Date: 08/07/2024 09:41 Report Date: 08/07/2024 [...] 08/07/2024 9:48 AM Dictation Location: [place] [address] Electronically authenticated by: [id number] Y Date: 08/07/2024 09:48 Dictated By: Paula Gage M.D. Signed By: 08/07/2450 DD/ 7 TD/TT: Benefits Manager: [facility] Radiology Study observation (narrative) [facility] OB INCOMPLETE ANATOMYOrde red By: Radiologist Radiology on 08-07-2024 [facility] Work Phone: Urinalysis macro (dipstick) panel (U)on 07-17-2024 Bilirubin, UA Negative Negative - 4(70) +++ mg/dL [facility] Blood, UA Positive Negative - 50 Jorge Luis/mcL [facility] Comment on above: Trace-lysed Clarity, UA Clear [facility] Color, UA Yellow [facility] Glucose, UA Negative Negative - 2000(110) ++++ mg/dL [facility] Interpretation and review of laboratory results Abnormal [facility] Ketones, UA Negative Negative - 160(16) ++++ mg/dL [facility] Leukocytes, UA Negative Negative - 500+++ Flori/mcL [facility] Nitrite, UA Negative Negative - Positive [facility] pH, UA 7 5 - 9 [facility] Protein, UA Trace Negative - 2000(20) ++++ mg/dL [facility] Spec Grav, UA 1.02 1 - 1.03 [facility] Urobilinogen, UA 0.2 0.2 - 12 mg/dL Critical access hospital US OB 14+ WEEKS ANATOMY SCAN on [...] II, MD, PHD at 07-Jul-2024 06:23:52 AM [facility] Normal Not Available Comment on above: Order Comment: US OB ANATOMY SINGLE W US OB CERVICAL LENGTH Estimated Date of Delivery: 11/19/24 Gestational Age as of 06/19/2024: 18w1d C. trachomatis DNA JANESSA+probe Ql (Unsp spec)on 06-19-2024 Chlamydia Dna(Pcr) Negative [facility] Gonorrhoeae Dna(Pcr) Negative [facility] US OB LIMITED 1+ FETUSESon 0 [...] II, MD, PHD at 20-Jun-2024 09:56:32 AM [facility] Normal Not Available Comment on above: Order Comment: US OB PLACENTA W US OB TRANSVAGINAL Estimated Date of Delivery: 11/19/24 Gestational Age as of 06/19/2024: 18w1d Ultrasound - Officeon 2024 [facility] US OB CERVICAL LENGTHon 04-[address] [address] Ultrasound Report Signed Patient: EMILEE RIVAS MR#: [id number] : 1995 Acct:[id number] Age/Sex: 29 / F ADM Date: 05/23/24 Loc: US Attending Dr: Saravanan Ahumada D.O. Ordering Physician: Saravanan Ahumada D.O. Date of Service: 05/23/24 Procedure(s): US OB cervical length Accession Number(s): [id number] cc: Saravanan Ahumada D.O.; LITO VELAZQUEZ [place] [address] Patient Name: EMILEE RIVAS MRN: [facility]:[id number] date: 1995 Sex: F Assigned Patient Location: Current Patient Location: US Accession/Order Number: [id number] Exam Date: 05/23/2024 23:10 Report Date: 05/23/2024 [...] Harmon Jr., D.O.05/23/2024 11:13 PM Dictation Location: [place] [address] Electronically authenticated by: [id number] Y Date: 05/23/2024 23:13 Dictated By: Navjot Harmon M.D. Signed By: 05/23/242314 DD/ 12 TD/TT: Benefits Manager: [facility] Radiology, Radiologist, - 05/24/2024 [place] [address] Ultrasound Report Signed Patient: EMILEE RIVAS MR#: [id number] : 1995 Acct:[id number] Age/Sex: 29 / F ADM Date: 05/23/24 Loc: US Attending Dr: Saravanan Auhmada D.O. Ordering Physician: Saravanan Ahumada D.O. Date of Service: 05/23/24 Procedure(s): US OB cervical length Accession Number(s): [id number] cc: Saravanan Ahumada D.O.; LITO VELAZQUEZ [place] [id number] Patient Name: EMILEE RIVAS MRN: [facility]:[id number] date: 1995 Sex: F Assigned Patient Location: Current Patient Location: US Accession/Order Number: [id number] Exam Date: 05/23/2024 23:10 Report Date: 05/23/2024 [...] Harmon Jr., D.O.05/23/2024 11:13 PM Dictation Location: [place] [address] Electronically authenticated by: [id number] Y Date: 05/23/2024 23:13 Dictated By: Navjot Harmon M.D. Signed By: 05/23/242314 DD/ 12 TD/TT: Benefits Manager: [facility] Radiology Study observation (narrative) [facility] US OB CERVICAL LENGTHOrdered By: Radiologist Radiology on 05-23-2024 [facility] Work Phone: Unlisted Lab Teston 05-22-19 [employer] [facility] [employer] Urinalysis macro (dipstick) panel (U)on 05-22-2024 Bilirubin, UA Negative Negative - 4(70) +++ mg/dL [facility] Blood, UA Negative Negative - 50 Jorge Luis/mcL [facility] Clarity, UA Clear [facility] Color, UA Yellow [facility] Glucose, UA Negative Negative - 1999(110) ++++ mg/dL [facility] Interpretation and review of laboratory results Normal [facility] Ketones, UA Negative Negative - 160(16) ++++ mg/dL [facility] Leukocytes, UA Negative Negative - 500+++ Flori/mcL [facility] Nitrite, UA Negative Negative - Positive [facility] pH, UA 7 5 - 9 [facility] Protein, UA Negative Negative - 1999(20) ++++ mg/dL [facility] Spec Grav, UA 1.015 1 - 1.03 [facility] Urobilinogen, UA 0.2 0.2 - 12 mg/dL [facility] Urinalysis macro (dipstick) panel (U)on 05-15-2024 Bilirubin, UA Negative Negative - 4(70) +++ mg/dL [facility] Blood, UA Negative Negative - 50 Jorge Luis/mcL [facility] Clarity, UA Clear [facility] Color, UA Yellow [facility] Glucose, UA Negative Negative - 1999(110) ++++ mg/dL [facility] Interpretation and review of laboratory results Normal [facility] Ketones, UA Negative Negative - 160(16) ++++ mg/dL [facility] Leukocytes, UA Negative Negative - 500+++ Flori/mcL [facility] Nitrite, UA Negative Negative - Positive [facility] pH, UA 6 5 - 9 [facility] Protein, UA Negative Negative - 1999(20) ++++ mg/dL [facility] Spec Grav, UA 1.01 1 - 1.03 [facility] Urobilinogen, UA 0.2 0.2 - 12 mg/dL [facility] hospital AFP Single Marker Scrn, Mate rnal, Serumon 04-21-2024 [facility] BOX TESTon 04-21-2024 BOX TEST SENT OUT 04/21/24 [facility] BOX1 [facility] BOX2 [facility] BOX [facility] Drug Screen, Urineon 025 Benzodiazepines Negative [facility] Cocaine Metabolite Negative [facility] Opiates Negative [facility] Phencyclidine Negative [facility] Thc Marijuana, Urine Negative [facility] HBV surface Ag IA Qlon 04-21 Hepatitis B Surface Antigen Negative [facility] HCG ( test) Ql (U)o n 04-21-2024 Interpretation and review of laboratory results Abnormal [facility] Preg Test, Ur Positive Negative [facility] hospital HCV Ab IA Qlon 04-21-2024 HCV Ab Ql (S) Non-Reactive [facility] HIV 1+2 Ab+HIV1 p24 Ag IA Ql on 04-21-2024 HIV 1&2 AB/AG Non-Reactive [facility] Hemoglobin A1con 04-21-2024 HbA1c (Bld) [Mass fraction] 5.4 % 4.0 - 6.0 % [facility] No Panel Informationon 04-21 [facility] Rubella IGG immune statuson 04-21-2024 Rubella immune IgG non immune [facility] T. pallidum IgG+IgM IA Ql (S )on 04-21-2024 Syphilis Non-Reactive [facility] Type and screenon 04-21-2024 Abo/Rh(D) Negative [facility] US OB TRANSVAGINALon 025 US [...] UA Negative Negative - 4(70) +++ mg/dL [facility] Blood, UA Negative Negative - 50 Jorge Luis/mcL [facility] Clarity, UA Clear [facility] Color, UA Yellow [facility] Glucose, UA Negative Negative - 1999(110) ++++ mg/dL [facility] Interpretation and review of laboratory results Normal [facility] Ketones, UA Negative Negative - 160(16) ++++ mg/dL [facility] Leukocytes, UA Negative Negative - 500+++ Flori/mcL [facility] Nitrite, UA Negative Negative - Positive [facility] pH, UA 7 5 - 9 [facility] Protein, UA Negative Negative - 1999(20) ++++ mg/dL [facility] Spec Grav, UA 1.02 1 - 1.03 [facility] Urobilinogen, UA 0.2 0.2 - 12 mg/dL [facility] CNNURSEon 2024 CNNURSE Nurse Visit (REIAV) LISSA RIVAS ([id number]) 1995 F Date Time Provider Department 04/03/24 11:10 AM TECH [facility] REJ ASHLYNV During your visit today, we recorded the following information about you: Ortega Morrissey, DEBBIE.[employer] DE[employer]OYMENT CONSULTANT 2024 4:38 PM Signed Lissa Rivas here [...] Plan Move on to OB Ortega Morrissey APRN.[employer] DE[employer]OYMENT CONSULTANT 2024 4:34 PM Referring Provider: ORTEGA MORRISSEY [[id number]] Allergies As of Date: 2024 (No Known Allergies) Date Reviewed: 02/23/2024 Reviewed by: Paula Hester RN - Fully Assessed Visit Diagnosis:Supervision of with history of infertility, first trimester [O09.01] Order(s):OBSTETRIC ULTRASOUND [facility] [[id number]] Order #: [id number]. #:[id number] EWPOINTQty: 1 Prescriptions as of 2024 - [...] JAILENE HOWARD on 04/03/24 Normal [facility] Examination level ultrasound on 2024 Indication Viability Impression - Single, live, intrauterine . - An intrauterine gestational sac with a yolk sac and pole is present. - Goltry rump length measurement is NOT consistent with [...] Read By: Jailene Howard M.D. MATERNAL MEDICINE [facility] Radiology Study observation (narrative) [facility] Ultrasound - Officeon 2024 [facility] Drug Screen, Urineon 024 Amphetamine/Methamphetam ine Negative [facility] Barbiturates Negative [facility] Methadone Negative [facility] Oxycodone Negative [facility] CONSULT PROGon 03-20-2024 CONSULT PROG HNO ID: [id number] Author: FEDE HAIRSTON MD Service: ? Author [...] Hysteroscopy Laparoscopy OPK (Ovulation Predictor Kit) Ovarian [place] [facility] 10.91 High 01/04/2023 Saline Ultrasound Semen [...] visit. Either the patient or their legal rental representative has been informed of the risks and benefits of -- and alternatives to -- treatment through a remote evaluation and consents to proceed with the evaluation remotely. I spent a total of 30 minutes on the date of the service which included preparing to see the patient, [id number] patient care, counseling and educating the patient/family/caregiv er, ordering medications, tests, or procedures, communicating results to the patient/family/caregiv er, and care coordination (not separately reported). MD Kim Branch MD Normal [facility] B-HCG SerPl-aCncon 4 HCG.beta subunit Qn 190.7 m[IU]/mL High <5.0 [facility] Comment on above: Order Comment: Speci men Type: BLOOD SPECIMENOrdering Facility: [facility] Address: [address] [place] [address] Result Comment: LUCA TITATIVE HCG NORMAL RANGES Weeks of Gestation (Weeks Since LMP) 3 Weeks (5.8-71.2 mIU/mL) 4 Weeks (9.5-750 mIU/mL) 5 Weeks (217-7138 mIU/mL) 6 Weeks (158-22350 mIU/mL) 7 Weeks (3697-627350 mIU/mL) 8 Weeks (90749-276579 mIU/mL) 9 Weeks (55500-877848 mIU/mL) 10 Weeks (94917-809581 mIU/mL) 12 Weeks (43210-760125 mIU/mL) Referenced to 4th [facility] of [facility] Performed By: #### 2 1198-7 ####[facility] LABCLIA [id number] [place] [id number] [place] B-HCG SerPl-aCncon 4 HCG.beta subunit Qn 87.6 m[IU]/mL High <5.0 [facility] Comment on above: Order Comment: Speci men Type: BLOOD SPECIMENOrdering Facility: [facility] Address: [address] [place] [address] Result Comment: LUCA TITATIVE HCG NORMAL RANGES Weeks of Gestation (Weeks Since LMP) 3 Weeks (5.8-71.2 mIU/mL) 4 Weeks (9.5-750 mIU/mL) 5 Weeks (217-7138 mIU/mL) 6 Weeks (158-78271 mIU/mL) 7 Weeks (3697-662883 mIU/mL) 8 Weeks (03200-922187 mIU/mL) 9 Weeks (08820-823272 mIU/mL) 10 Weeks (25503-013919 mIU/mL) 12 Weeks (78670-067767 mIU/mL) Referenced to 4th IS of [facility] Performed By: #### 2 1198-7 ####[facility] LABIA [id number] [place] [address] [place] B-HCG SerPl-aCncon 4 HCG.beta subunit Qn 21.9 m[IU]/mL High <5.0 [facility] Comment on above: Order Comment: Speci men Type: BLOOD SPECIMENOrdering Facility: [facility] Address: [address] [place] [address] Result Comment: LUCA TITATIVE HCG NORMAL RANGES Weeks of Gestation (Weeks Since LMP) 3 Weeks (5.8-71.2 mIU/mL) 4 Weeks (9.5-750 mIU/mL) 5 Weeks (217-7138 mIU/mL) 6 Weeks (158-06987 mIU/mL) 7 Weeks (3697-005504 mIU/mL) 8 Weeks (25546-592522 mIU/mL) 9 Weeks (06666-412942 mIU/mL) 10 Weeks (92213-984058 mIU/mL) 12 Weeks (70628-952891 mIU/mL) Referenced to 4th IS of [facility] Performed By: #### 2 1198-7 ####[facility] LABCLIA [id number] [place] [id number] [facility] CNPN Telephone (REIBD) LISSA RIVAS ([id number]) 1995 F Date Time Provider Department 03/13/24 FEDE HAIRSTON During your visit today, we recorded the following information about you: Ayanna Wise 03/13/2024 11:56 AM Signed Patient states she skipped this month and has +hpt, please follow up with patient. Ortega Morrissey APRN.[employer] DEPLOYMENT CONSULTANT 03/13/2024 1:37 PM Signed Patient calls with [...] ordered: HCG x2 FYI Dr. Bill Morrissey, DEBBIE.LEAN PROCESS DEPLOYMENT CONSULTANT March 13, 2024 1:37 PM Allergies As of Date: 03/13/2024 (No Known Allergies) Date Reviewed: 02/23/2024 Reviewed by: Paula Hester, RN - Fully Assessed Reason for Visit: +hpt today/lmp 02/12 skipped treatment this month [Other] Primary Visit Diagnosis:Supervision of with history of infertility, first trimester [O09.01] Other Visit Diagnosis: examination or test, unconfirmed [Z32.00] Order(s):HCG QUANTITATIVE [SQHCGQT] Order #: [id number] STANDING Prescriptions as of 03/13/2024 - metFORMIN [...] ORTEGA MORRISSEY on 03/13/24 Normal [facility] Progest Laurent-Avni 024 Progesterone [Mass/Vol] 17.8 ng/mL Normal See comment [facility] Comment on above: Order Comment: Speci men Type: BLOOD SPECIMENOrdering Facility: [facility] Address: [address] [place] [address] Result Comment: Mens trual Cycle Progesterone Reference Ranges: Follicular: <1.0 ng/mL Ovulation: <12.1 ng/mL Luteal: 1.8 to 23.9 ng/mL. Progesterone Reference Ranges vary by gestational period: First Trimester: 11.0 to 44.3 ng/mL Second Trimester: 25.4 to 83.3 ng/mL Third Trimester: 58.7 to 214 ng/mL Post menopausal Progesterone: <0.5 ng/mL Reference: 1. Progesterone (Progesterone III) [package insert V 1.0 Malay]. [facility], [place], [place]. December 2014. Performed By: #### 2 839-9 ####[facility] LABCLIA [id number] [address] 02-28-2024 JORDANN Telephone (REIBD) LISSA RIVAS ([id number]) 1995 F Date Time Provider Department 02/28/24 FEDE HAIRSTON During your visit today, we recorded the following information about you: Joanna Garces 02/28/2024 8:23 AM Signed Pt is not financially clear yet should she still schedule it after she pays Ortega Morrissey APRN.[employer]AN [employer]ESS DEPLOYMENT CONSULTANT 02/28/2024 11:54 AM Signed Spoke with Thao, [...] cycle day 3-7 Authorizing Provider: ORTEGA MORRISSEY APRN.LEAN PROCESS DEPLOYMENT CONSULTANT February 28, 2024 11:54 AM Allergies As of Date: 02/28/2024 (No Known Allergies) Date Reviewed: 02/23/2024 Reviewed by: Paula Hester, ARIC - Fully Assessed Reason for Visit: ortega pt is not cleared for us should she still have it do [Other] Primary Visit Diagnosis:Female infertility [N97.9] Order(s):PROGESTERONE [SQPROG] Order #: [id number] FUTURE letrozole (FEMARA) 2.5 mg tabletTake 3 [...] ORTEGA MORRISSEY on 02/28/24 Normal [facility] 25(OH)D3 [facility] 2023 25-hydroxyvitamin D3 [Mass/Vol] 49.3 ng/mL Normal 31.0-80.0 [facility] Comment on above: Order Comment: Speci men Type: BLOOD SPECIMEN [facility]ing Facility: [facility] Address: [address] [place] [address] Result Comment: Clas sification of 25 [place] Vitamin D status: Deficiency/Insufficiency: < or = 30 ng/ml. Sufficiency/Optimal Levels: 31-80 ng/mL Toxicity: > 100 ng/mL. Test performed by chemiluminescent immunoassay. Performed By: #### 1 989-3 #### [facility] CLIA [id number] [address] [place], [place] [address] [address] [place] 25-hydroxyvitamin D3 [Mass/V ol]on 02-23-2024 Interpretation and review of laboratory results Normal [facility] The reference range interval was based on an analysis of samples from healthy adults and may not pertain to children from 0-18 years old. [facility] CBC panel Auto (Bld)on 02-22 Erythrocyte distribution width (RBC) [Ratio] 12.4 % 11.5 - 15.0 % [facility] Hematocrit (Bld) [Volume fraction] 40.6 % 36.0 - 46.0 % [facility] Hemoglobin (Bld) [Mass/Vol] 13.5 g/dL 11.5 - 15.5 g/dL [facility] Interpretation and review of laboratory results Normal [facility] MCH (RBC) [Entitic mass] 31.1 pg 26. 0 - 34.0 pg [facility] MCHC (RBC) [Mass/Vol] 33.3 g/dL 30.5 - 36.0 g/dL [facility] MCV (RBC) [Entitic vol] 93.5 fL 80.0 - 100.0 fL [facility] Nucleated RBC (Bld) [#/Vol] NINF [facility] Platelet mean volume (Bld) [Entitic vol] 10.6 fL 9.0 - 12.7 fL [facility] Platelets (Bld) [#/Vol] 261 10*3/uL [facility] RBC (Bld) [#/Vol] 4.34 10*6/uL 3.90 - 5.2 0 m/uL [facility] WBC (Bld) [#/Vol] 8.81 10*3/uL [facility] Erythrocyte distribution width (RBC) [Ratio] 12.4 % Normal 11.5-15.0 [facility] Comment on above: Order Comment: Speci men Type: BLOOD SPECIMEN Order[facility] Facility: [facility] Address: [address] [place] [address] Performed By: #### 5 8410-2 #### [facility] CLIA [id number] [address] [place] [address] [place] Hematocrit (Bld) [Volume fraction] 40.6 % Normal 36.0-46.0 [facility] Comment on above: Order Comment: Speci men Type: BLOOD SPECIMEN Ordering Facility: [facility] Address: [address] [place] [address] Performed By: #### 5 8410-2 #### [facility] CLIA [id number] [address] [place] [address] [place] Hemoglobin (Bld) [Mass/Vol] 13.5 g/dL Normal 11.5-15.5 [facility] Comment on above: Order Comment: Speci men Type: BLOOD SPECIMEN Ordering Facility: [facility] Address: [address] [place] [address] Performed By: #### 5 8410-2 #### [facility] CLIA [id number] [address] [place], [place] [id number] [place] [address] [place] MCH (RBC) [Entitic mass] 31.1 pg Normal 26.0-34.0 [facility] Comment on above: Order Comment: Speci men Type: BLOOD SPECIMEN Ordering Facility: [facility] Address: [address] [place] [address] Performed By: #### 5 8410-2 #### [facility] [place] [id number] [address] [place] [address] [place] MCHC (RBC) [Mass/Vol] 33.3 g/dL Normal 30.5-36.0 [facility] Comment on above: Order Comment: Speci men Type: BLOOD SPECIMEN Ordering Facility: [facility] Address: [address] [place] [address] Performed By: #### 5 8410-2 #### [facility] IA [id number] [address] [place] [address] [place] MCV (RBC) [Entitic vol] 93.5 fL Normal 80.0-100.0 [facility] Comment on above: Order Comment: Speci men Type: BLOOD SPECIMEN Ordering Facility: [facility] Address: [address] [place] [address] Performed By: #### 5 8410-2 #### [facility] [place] [id number] [place] [address] OF [facility] Nucleated RBC (Bld) [#/Vol] 10*3/uL Normal <0.01 [facility] Comment on above: Order Comment: Speci men Type: BLOOD SPECIMEN Ordering Facility: [facility] Address: [address] [place] [address] Performed By: #### 5 8410-2 #### [facility] IA [id number] [place] [address] [place] Platelet mean volume (Bld) [Entitic vol] 10.6 fL Normal 9.0-12.7 [facility] Comment on above: Order Comment: Speci men Type: BLOOD SPECIMEN Ordering Facility: [facility] Address: [address] [place] [address] Performed By: #### 5 8410-2 #### [facility] CLIA [id number] [address] [place] [address] [place] [facility] Platelets (Bld) [#/Vol] 261 10*3/uL Normal 150-400 [facility] Comment on above: Order Comment: Speci men Type: BLOOD SPECIMEN Ordering Facility: [facility] Address: [address] [place] [address] Performed By: #### 5 8410-2 #### [facility] IA [id number] [address] [place] [address] [place] RBC (Bld) [#/Vol] 4.34 10*6/uL Normal 3.90-5.20 [facility] Comment on above: Order Comment: Speci men Type: BLOOD SPECIMEN Ordering Facility: [facility] Address: [address] [place] [address] Performed By: #### 5 8410-2 #### [facility] IA [id number] [address] [place] [address] [place] WBC (Bld) [#/Vol] 8.81 10*3/uL Normal 3.70-11.00 [facility] Comment on above: Order Comment: Speci men Type: BLOOD SPECIMEN Ordering Facility: [facility] Address: [address] [place] [address] Performed By: #### 5 8410-2 #### [facility] IA [id number] [address] [place] [address] [facility] CNNURSE Nurse Visit (REIAV) LISSA RIVAS ([id number]) 1995 F Date Time Provider Department 02/23/24 [...] schedule the patient for the following- Location: [facility] Provider: Nurse Visit type: midcycle Reason for visit/appointment notes: midcycle Date: 02/24 Time (requested): 0730 If slot is full, please schedule the closest open slot. Call to patient needed: Ortega Martinez APRN.CNP 02/23/2024 4:03 PM Signed Addended by: ORTEGA MORRISSEY on: 02/23/2024 04:03 PM Modules accepted: Orders Referring Provider: ORTEGA MORRISSEY [[id number]] Allergies As of Date: 02/23/2024 (No Known Allergies) Date Reviewed: 02/23/2024 Reviewed by: Paula Hester RN - Fully Assessed Reason for Visit: Infertility [285] Visit Diagnosis:Female infertility [N97.9] Order(s):FOLLICULAR US [facility] [[id number]] Order #: [id number]. #:[id number] EWPOINTQty: 1 FOLLICULAR US [facility] [] Order #: [id number]: 1 FUTURE Prescriptions as of 02/23/2024 - [...] VANESSA VO on 02/23/24 Normal [facility] Cobalamin (Vitamin B12) [Mas s/Vol]on 02-23-2024 Interpretation and review of laboratory results Normal [facility] Comprehensive metabolic 2000 panelon 02-23-2024 Albumin [Mass/Vol] 4.5 g/dL 3.9 - 4.9 g/dL [facility] ALP [Catalytic activity/Vol] 65 U/L 34 - 123 U/L [facility] ALT [Catalytic activity/Vol] 41 U/L High 7 - 38 U/L [facility] Anion gap [Moles/Vol] 12 mmol/L 8 - 15 mmol/L [facility] AST [Catalytic activity/Vol] 21 U/L 13 - 35 U/L [facility] Bilirubin [Mass/Vol] 0.2 mg/dL 0.2 - 1 .3 mg/dL [facility] Calcium [Mass/Vol] 9.3 mg/dL 8.5 - 10. 2 mg/dL [facility] Chloride [Moles/Vol] 105 mmol/L 98 - 10 7 mmol/L [facility] CO2 [Moles/Vol] 24 mmol/L 22 - 30 mmol/L [facility] Creatinine [Mass/Vol] 0.78 mg/dL 0.58 - 0.96 mg/dL [facility] GFR/1.73 sq M.predicted among non-blacks MDRD (S/P/Bld) [Vol rate/Area] 106 mL/min/{1.73_m2} - PINF [facility] Comment on above: Estimated [...] [Mass/Vol] 98 mg/dL 74 - 99 mg/dL [facility] Comment on above: The [place] Diabete s Association (ADA) provides guidance for [...] Standards of Medical Care in Diabetes 2016, [place] [employer]. Diabetes Care. 2016.39(Suppl 1). Interpretation and review of laboratory results Abnormal [facility] Potassium [Moles/Vol] 4.3 mmol/L 3.7 - 5.1 mmol/L [facility] Protein [Mass/Vol] 7.3 g/dL 6.3 - 8.0 g/dL [facility] Sodium [Moles/Vol] 141 mmol/L 136 - 144 mmol/L [facility] Urea nitrogen [Mass/Vol] 11 mg/dL 7 - 21 mg/d L [facility] Albumin [Mass/Vol] 4.5 g/dL Normal 3.9-4.9 [facility] Comment on above: Order Comment: Speci men Type: BLOOD SPECIMEN Order[facility] Facility: [facility] Address: [address] [place] [address] Performed By: #### 2 4323-8 #### [facility] CLIA [id number] [address] [place] [address] [place] ALP [Catalytic activity/Vol] 65 U/L Normal 34-123 [facility] Comment on above: Order Comment: Speci men Type: BLOOD SPECIMEN Ordering Facility: [facility] Address: [address] [place] [address] Performed By: #### 2 4323-8 #### [facility] CLIA [id number] [address] [place] [address] [place] ALT [Catalytic activity/Vol] 41 U/L High 7-38 [facility] Comment on above: Order Comment: Speci men Type: BLOOD SPECIMEN Ordering Facility: [facility] Address: [address] [place] [address] Performed By: #### 2 4323-8 #### [facility] CLIA [id number] [address] [place] [address] [place] Anion gap [Moles/Vol] 12 mmol/L Normal 8-15 [facility] Comment on above: Order Comment: Speci men Type: BLOOD SPECIMEN Ordering Facility: [facility] Address: [address] [place] [address] Performed By: #### 2 4323-8 #### [facility] CLIA [id number] [address] [place] [address] [place] AST [Catalytic activity/Vol] 21 U/L Normal 13-35 [facility] Comment on above: Order Comment: Speci men Type: BLOOD SPECIMEN Ordering Facility: [facility] Address: [address] [place] [address] Performed By: #### 2 4323-8 #### [facility] CLIA [id number] [address] [place] [address] [place] Bilirubin [Mass/Vol] 0.2 mg/dL Normal 0.2-1.3 [facility] Comment on above: Order Comment: Speci men Type: BLOOD SPECIMEN Ordering Facility: [facility] Address: [address] [place] [address] Performed By: #### 2 4323-8 #### [facility] CLIA [id number] [place] [address] [place] Calcium [Mass/Vol] 9.3 mg/dL Normal 8.5-10.2 [facility] Comment on above: Order Comment: Speci men Type: BLOOD SPECIMEN Ordering Facility: [facility] Address: [address] [place] [address] Performed By: #### 2 4323-8 #### [facility] CLIA [id number] [address] [place] [address] [place] Chloride [Moles/Vol] 105 mmol/L Normal 98-107 [facility] Comment on above: Order Comment: Speci men Type: BLOOD SPECIMEN Ordering Facility: [facility] Address: [address] [place] [address] Performed By: #### 2 4323-8 #### [facility] CLIA [id number] [address] [place] [address] [place] CO2 [Moles/Vol] 24 mmol/L Normal 22-30 [facility] Comment on above: Order Comment: Speci men Type: BLOOD SPECIMEN Ordering Facility: [facility] Address: [address] [place] [address] Performed By: #### 2 4323-8 #### [facility] CLIA [id number] [facility] [place] [address] [place] Creatinine [Mass/Vol] 0.78 mg/dL Normal 0.58-0.96 [facility] Comment on above: Order Comment: Jarek leger Type: BLOOD SPECIMEN Ordering Facility: [facility] Address: [address] [place] [address] Performed By: #### 2 4323-8 #### [facility] CLIA [id number] [address] [place] [address] [place] Creatinine and Glomerular filtration rate.predicted panel (S/P/Bld) 106 mL/min/1.73m??? Normal >=60 [facility] Comment on above: Order Comment: Jarek leger Type: BLOOD SPECIMEN Ordering Facility: [facility] Address: [address] [place] [address] Result Comment: Estefanía mated Glomerular Filtration Rate [...] GFR. Performed By: #### 2 4323-8 #### [facility] CLIA [id number] [address] [place] [address] [place] Glucose [Mass/Vol] 98 mg/dL Normal 74-99 [facility] Comment on above: Order Comment: Jarek leger Type: BLOOD SPECIMEN Ordering Facility: [facility] Address: [address] [place] [address] Result Comment: The [place] Diabetes Association (ADA) provides guidance for cutoff [...] Standards of Medical Care in Diabetes 2016, [place] [employer] Association. Diabetes Care. 2016.39(Suppl 1). Performed By: #### 2 4323-8 #### [facility] CLIA [id number] [address] [place] [address] [place] Potassium [Moles/Vol] 4.3 mmol/L Normal 3.7-5.1 [facility] Comment on above: Order Comment: Speci men Type: BLOOD SPECIMEN Ordering Facility: [facility] Address: [address] [place] [address] Performed By: #### 2 4323-8 #### [facility] IA [id number] [address] [place] [address] [place] Protein [Mass/Vol] 7.3 g/dL Normal 6.3-8.0 [facility] Comment on above: Order Comment: Harmonyi men Type: BLOOD SPECIMEN Ordering Facility: [facility] Address: [address] [place] [address] Performed By: #### 2 4323-8 #### [facility] IA [id number] [address] [place] [address] [place] Sodium [Moles/Vol] 141 mmol/L Normal 136-144 [facility] Comment on above: Order Comment: Harmonyi men Type: BLOOD SPECIMEN Ordering Facility: [facility] Address: [address] [place] [address] Performed By: #### 2 4323-8 #### [facility] IA [id number] [address] [place] [address] [place] Urea nitrogen [Mass/Vol] 11 mg/dL Normal 7-21 [facility] Comment on above: Order Comment: Harmonyi men Type: BLOOD SPECIMEN Ordering Facility: [facility] Address: [address] [place] [address] Performed By: #### 2 4323-8 #### [facility] CLIA [id number] [address] [place] [id number] [place] Follicle Diameter USon [...] Read By: Vanessa Vo M.D. MATERNAL MEDICINE [facility] Radiology Study observation (narrative) Theresa torres [facility] HbA1c (Bld)on 02-23-2024 Average glucose Estimated from glycated hemoglobin (Bld) [Mass/Vol] 111 mg/dL [facility] Comment on above: eAG: (Estimated aver age glucose) is a calculated value from HgbA1c and is rental representative of the average blood glucose level in the last 2-3 month period. HbA1c (Bld) [Mass fraction] 5.5 % 4.3 - 5.6 % [facility] Comment on above: [place] Diabetes As sociation guidelines indicate that patients with HgbA1c in the range 5.7-6.4% are at increased risk for development of diabetes, and intervention by lifestyle modification may be beneficial. HgbA1c greater or equal to 6.5% is considered diagnostic of diabetes. [facility] Average glucose Estimated from glycated hemoglobin (Bld) [Mass/Vol] 111 mg/dL Normal [facility] Comment on above: Order Comment: Jarek leger Type: BLOOD SPECIMEN Ordering Facility: [facility] Address: [address] [place] [address] Result Comment: eAG: (Estimated average glucose) is a calculated value from HgbA1c and is rental representative of the average blood glucose level in the last 2-3 month period. Performed By: #### 5 5454-3 #### [facility] CLIA [id number] [address] [place] [address] [place] HbA1c (Bld) [Mass fraction] 5.5 % Normal 4.3-5.6 [facility] Comment on above: Order Comment: Jarek leger Type: BLOOD SPECIMEN Ordering Facility: [facility] Address: [address] [place] [address] Result Comment: Amer ican Diabetes Association guidelines indicate that patients with HgbA1c in the range 5.7-6.4% are at increased risk for development of diabetes, and intervention by lifestyle modification may be beneficial. HgbA1c greater or equal to 6.5% is considered diagnostic of diabetes. Performed By: #### 5 5454-3 #### [facility] CLIA [id number] [address] [place] [address] [place] VITAMIN B12on 02-23-2024 Cobalamin (Vitamin B12) [Mass/Vol] 567 pg/mL 232 - 1245 pg/mL [facility] VITAMIN D 25 HYDROXYon 02-22 25-hydroxyvitamin D3 [Mass/Vol] 49.3 ng/mL 31.0 - 80.0 ng/mL [facility] Comment on above: Classification of 25 [place] Vitamin D status: Deficiency/Insufficiency: < or = 30 ng/ml. Sufficiency/Optimal Levels: 31-80 ng/mL Toxicity: > 100 ng/mL. Test performed by chemiluminescent immunoassay. Vit B12 [facility] 024 Cobalamin (Vitamin B12) [Mass/Vol] 567 pg/mL Normal 232-1245 [facility] Comment on above: Order Comment: Speci men Type: BLOOD SPECIMEN Ordering Facility: [facility] Address: [address] [place] [address] Performed By: #### 2 132-9 #### [facility] CLIA [id number] 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 Author [...] visit. Either the patient or their legal rental representative has been informed of the risks and benefits of -- and alternatives to -- treatment through a remote evaluation and consents to proceed with the evaluation remotely. I spent a total of 30 minutes on the date of the service which included preparing to see the patient, [id number] patient care, counseling and educating the patient/family/caregiv er, ordering medications, tests, or procedures, communicating results to the patient/family/caregiv er, and care coordination (not separately reported). Kim Khan MD [facility] APTIMA MULTITEST VAGINALon 1 04-17-2023 [facility] No Panel Informationon 02-15 APTIMA BACTERIAL VAGINOSIS Not detected [facility] APTIMA SHANTA GLABRATA Not detected [facility] APTIMA CHLAMYDIA TRACHOMATIS 5 ppm [facility] APTIMA CHLAMYDIA TRACHOMATIS Not detected ppm [facility] CNPNon 02-15-2024 CNPN Telephone (REIBD) LISSA RIVAS ([id number]) 1995 F Date Time Provider Department 02/15/24 FEDE HAIRSTON During your visit today, we recorded the following information about you: Kira Durga Ayanna Zabrina 02/15/2024 11:37 AM Signed Patient states this [...] schedule the patient for the following- Location: [facility] Provider: nurse Visit type: midcycle Reason [...] cycle day 3-7Disp: 10 tabletRfl: 2 FOLLICULAR [facility] [[id number]] Order #: [id number]: 1 FUTURE Prescriptions as of 02/15/2024 - [...] ORTEGA MORRISSEY on 02/15/24 Normal [facility] POCT trichomonas manually louis david 02-15-2024 Bacterial vaginosis and vaginitis DNA [...] rocha is working with reproductive specialist at [facility] and needs MRI done within the next 13 days. If [facility] not able to accommodate her, anywhere that is able to schedule within that timeframe would be fine. Alexandra 01-14-2024 LAURA Telephone (REIBD) LISSA RIVAS ([id number]) 1995 F Date Time Provider Department 01/14/24 ORTEGA MORRISSEY REIBAlyce During your visit today, we recorded the following information about you: Keren Carcamo 01/14/2024 9:04 AM Signed Pt started cycle 01/12 and would like to discuss plan for scheduling iui Ortega Morrissey APRN.LEAN PROCESS DEPLOYMENT CONSULTANT 01/14/2024 4:18 PM Signed Spoke with Lissa, She is planning to use OPK only this cycle. Jeferson call with [facility]. Ortega Morrissey APRN.LEAN PROCESS DEPLOYMENT CONSULTANT January 14, 2024 4:17 PM Allergies As of Date: 01/14/2024 (No Known Allergies) Date Reviewed: 11/22/2023 Reviewed by: Ortega Morrissey APRN.LEAN PROCESS DEPLOYMENT CONSULTANT - Fully Assessed Reason for Visit: iui [...] Encounter Status:Closed by ORTEGA MORRISSEY on 01/14/24 [facility] CNOVon 12-31-2023 CNOV Office Visit (REIAV) LISSA RIVAS ([id number]) 1995 F Date Time Provider Department 12/31/23 10:00 AM ORTEGA MORRISSEY During your visit today, we recorded the following information about you: Last Period 12/12/23 Domenica Coon MA 12/31/2023 10:07 AM Signed Molder Hand offered: Patient declines. Ortega Morrissey APRN.CNP [...] Cycle Day: 20 Last menstrual period: 12/12/2023 [place] Protocol: UNIVERSAL PROTOCOL / SAFETY CHECKLIST Procedure [...] 08/17/2023 Visit Notes: >> Domenica Coon MA [facility] Dec 31, 2023 10:07 AM Status: Signed Molder Hand offered: Patient declines. Encounter Status:Closed by ORTEGA MORRISSEY on 12/31/23 [facility] Nurse Visit (ASHLYNV) LISSA RIVAS ([id number]) 1995 F Date Time Provider Department 12/21/23 [...] plan provided to patient via a Fertility fast food crew member. MD Darrell Branch Laura, RN 12/21/2023 2:32 PM Signed pt using LH surge strips and will call to irvin IUI Robin Grewal RN December 21, 2023 2:32 PM Referring Provider: ORTEGA MORRISSEY [[id number]] Allergies As of Date: 12/21/2023 (No Known Allergies) Date Reviewed: 11/22/2023 Reviewed by: Ortega Morrissey APRN.LEAN PROCESS DEPLOYMENT CONSULTANT - Fully Assessed Visit Diagnosis:Female infertility [N97.9] Order(s):FOLLICULAR US [facility] [[id number]] Order #: [id number]. #:[id number] EWPOINTQty: 1 Prescriptions as of 12/21/2023 - [...] ROBIN GREWAL on 12/21/23 Normal [facility] Follicle Diameter USon 12-20 Indication MIdcycle, [...] free fluid visualized Performed By: Cornelia Macario; [facility] Read By: Fede Hairston M.D. MATERNAL MEDICINE [facility] Radiology Study observation (narrative) Theresa torres [facility] Alexandra 12-13-2023 LAURA Telephone (REIBD) CRYSTALLISSA ([id number]) 1995 F Date Time Provider Department 12/13/23 [...] [1234] Primary Visit Diagnosis:Female infertility [N97.9] Order(s):FOLLICULAR [facility] [[id number]] Order #: [id number]: 1 FUTURE Choriogonadotropin Pam,HumRec (OVIDREL) 250 mcg/0.5 [...] Status:Closed by ORTEGA MORRISSEY on 12/13/23 Normal [facility] CNOVon 11-28-2023 CNOV Office Visit (REIBD) LISSA RIVAS ([id number]) 1995 F Date Time Provider Department 11/28/23 11:00 AM DESHAWN RIOJAS During your visit today, we recorded the following information about you: Evangelina Painter 11/28/2023 10:54 AM Signed IUI specimen released to provider Jennaketan Paredesb November 28, 2023 10:48 AM Deshawn Riojas [...] Cycle Day: 13 Last menstrual period: 11/12/2023 [place] Protocol: UNIVERSAL PROTOCOL / SAFETY CHECKLIST Procedure [...] # 44.8 million Referring Provider: DESHAWN RIOJAS [[id number]] Allergies As of Date: 11/28/2023 (No Known Allergies) Date Reviewed: 11/22/2023 Reviewed by: Ortega Morrissey APRN.LEAN PROCESS DEPLOYMENT CONSULTANT - Fully Assessed Primary Visit Diagnosis:Female infertility [...] Encounter Status:Closed by DESHAWN RIOJAS on 11/28/23 Normal [facility] CNNURSEon 11-22-2023 CNNURSE Nurse Visit (LOUISIAV) LISSA RIVAS ([id number]) 1995 F Date Time Provider Department 11/22/23 7:15 AM [facility] During your visit today, we recorded the following information about you: Erma Donis RN 11/22/2023 3:44 PM Signed Lissa Iannello is here today for a midcycle scan. Lead follicle: 21mm vs CL Erma Donis RN November 22, 2023 8:44 AM Message sent to Dr. Howard to see if patient needs labs based on scan. Erma Donis RN November 22, 2023 8:09 AM Labs ordered and called patient. She will drive back to [place] now to get done. Erma Dnois RN November 22, 2023 8:45 AM 11/22/2023 11 trigger 25+<10mm 21.2, 25+<10mm 5.6mm tri p4=0.3 lh=5.1 JR 11/23/2023 12 11/24/2023 13 IUI RN called patient, name and verified. Plan given for midcycle per physician, see flowsheet for details. Imagin[employer]ikt message sent. Medications reviewed and verified, instructions given. Patient denies any questions or concerns. Erma Donis RN November 22, 2023 12:53 PM Referring Provider: ORTEGA MORRISSEY [[id number]] Allergies As of Date: 11/22/2023 (No Known Allergies) Date Reviewed: 11/22/2023 Reviewed by: Ortega Morrissey APRN.LEAN PROCESS DEPLOYMENT CONSULTANT - Fully Assessed Visit Diagnosis:Female infertility [N97.9] Order(s):FOLLICULAR US [facility] [[id number]] Order #: [id number]. #:[id number] EWPOINTQty: 1 PROGESTERONE [SQPROG] Order #: [id number] FUTURE LUTEINIZING HORMONE [SQLH] Order #: [id number] FUTURE Prescriptions as of 11/22/2023 - progesterone [...] JAILENE HOWARD on 11/22/23 Normal [facility] Follicle Diameter USon 11-21 Indication Follicle [...] Read By: Jailene Howard M.D. MATERNAL MEDICINE [facility] Radiology Study observation (narrative) [facility] LH SerPl-aCncon 11-22-2023 Lutropin Qn 5.1 m[IU]/mL Normal See comment [facility] Comment on above: Order Comment: Speci men Type: BLOOD SPECIMEN Ordering Facility: [facility] Address: [address] [place] [address] Result Comment: Refe rence range: Follicular: 2.4-12.6 mIU/mL Midcycle: 14.0-95.6 mIU/mL Luteal: 1.0-11.4 mIU/mL [place]: 7.7-58.5 mIU/mL Performed By: #### 2 839-9, 61088-2 #### [facility] CLIA [id number] [facility]. [address] LUTEINIZING HORMONEon 2023 Lutropin Qn 5.1 m[IU]/mL See comment mIU/mL [facility] Comment on above: Reference range: Follicular: 2.4-12.6 mIU/mL Midcycle: 14.0-95.6 mIU/mL Luteal: 1.0-11.4 mIU/mL [place]: 7.7-58.5 mIU/mL No Panel Informationon 11-21 [facility] PROGESTERONEon 11-22-2023 Progesterone [Mass/Vol] 0.3 ng/mL See comment [facility] Comment on above: Menstrual Cycle Prog esterone Reference Ranges: Follicular: <1.0 ng/mL Ovulation: <12.1 ng/mL Luteal: 1.8 to 23.9 ng/mL. Progesterone Reference Ranges vary by gestational period: First Trimester: 11.0 to 44.3 ng/mL Second Trimester: 25.4 to 83.3 ng/mL Third Trimester: 58.7 to 214 ng/mL Post menopausal Progesterone: <0.5 ng/mL Reference: 1. Progesterone (Progesterone III) [package insert V 1.0 Malay]. [facility] [place] December 2014. Progest SerPl-mCncon 11-21- 024 Progesterone [Mass/Vol] 0.3 ng/mL Normal See comment [facility] Comment on above: Order Comment: Speci men Type: BLOOD SPECIMEN Ordering Facility: [facility] Address: [address] [place] [address] Result Comment: Mens trual Cycle Progesterone Reference Ranges: Follicular: <1.0 ng/mL Ovulation: <12.1 ng/mL Luteal: 1.8 to 23.9 ng/mL. Progesterone Reference Ranges vary by gestational period: First Trimester: 11.0 to 44.3 ng/mL Second Trimester: 25.4 to 83.3 ng/mL Third Trimester: 58.7 to 214 ng/mL Post menopausal Progesterone: <0.5 ng/mL Reference: 1. Progesterone (Progesterone III) [package insert V 1.0 Malay]. [facility] [place]. December 2014. Performed By: #### 2 839-9, 68981-5 #### [facility] CLIA [id number] [facility] [place], [place] [id number] [place] [address] [place] Alexandra 11-12-2023 JORDANN Telephone (REIBD) LISSA RIVAS ([id number]) 1995 F Date Time Provider Department 8/16/24 SELF REIBD During your visit today, we [...] schedule the patient for the following- Location: [place] Provider: Nurse Visit type: Follicular scan Reason [...] Other Visit Diagnosis:Female infertility [N97.9] Order(s):FOLLICULAR US [facility] [[id number]] Order #: [id number]: 1 FUTURE Prescriptions as of 11/15/2023 - [...] Encounter Status:Closed by ORTEGA MORRISSEY on 11/15/23 [facility] CNOVon 10-26-2023 CNOV Office Visit (REIAV) LISSA RIVAS ([id number]) 1995 F Date Time Provider Department 10/26/23 11:00 AM ORTEGA MORRISSEY During your visit today, we recorded the following information about you: Ortega Morrissey APRN.CNP 10/26/2023 11:37 AM Signed WHI GAYATHRI IUI PROCEDURE NOTE Date: 10/26/2023 Primary Proceduralist: Ortega Morrissey APRN.CNP Consents and Labels Consent Signed: Informed Consent obtained and on the chart Labels Verified With Patient: Yes Indications: Lissa Iannello, is a 28 year old female here today for intrauterine insemination. IUI # Series 1 Cycle 1. Cycle Day: 15 Last menstrual period: 10/12/2023 [place] Protocol: UNIVERSAL PROTOCOL / SAFETY CHECKLIST Procedure [...] TIME: 11:36 AM Referring Provider: ORTEGA MORRISSEY [[id number]] Allergies As of Date: 10/26/2023 (No Known [...] Encounter Status:Closed by ORTEGA MORRISSEY on 10/26/23 [facility] 10-22-[address] [facility] Visit (REIAV) LISSA RIVAS ([id number]) 1995 F Date Time Provider Department 10/22/23 7:00 AM [facility] REIAV During your visit today, we recorded the following information about you: Erma Donis RN 10/22/2023 1:41 PM Signed Lissa Rivas is here today for a midcycle scan. Lead follicle: 14 Erma Donis RN October 22, 2023 7:25 AM RN called patient, name and verified. Plan given for midcycle per physician, see flowsheet for details. Imaginatikt message sent. Medications reviewed and verified, instructions [...] Trevizo MD, FLACO Referring Provider: ORTEGA MORRISSEY [[id number]] Allergies As of Date: 10/22/2023 (No Known Allergies) Date Reviewed: 08/18/2023 Reviewed by: Domenica Coon MA - Fully Assessed Visit Diagnosis:Female infertility [N97.9] Order(s):FOLLICULAR US [facility] [[id number]] Order #: [id number]. #:[id number] EWPOINTQty: 1 Prescriptions as of 10/22/2023 - [...] ERMA DONIS on 10/22/23 Normal [facility] Follicle Diameter USon 10-21 Indication Baseline [...] Read By: Ayanna Trevizo MD MATERNAL MEDICINE [facility] Radiology Study observation (narrative) Theresa torres [facility] 10-20-2023 CNPN Telephone (REIBD) LISSA RIVAS ([id number]) 1995 F Date Time Provider Department 10/20/23 SELF REIBD During your visit today, we recorded the following information about you: Keren Carcamo 10/20/2023 2:26 PM Signed Pts pharmacy called and would like to know when she needs to order trigger shot Ani Stovall APRN.CNP 10/20/2023 3:11 PM Signed patient instructed to order trigger now so that she has it by Wednesday Ani Stovall APRN.LEAN PROCESS DEPLOYMENT CONSULTANT October 20, 2023 3:10 PM Allergies As [...] Encounter Status:Closed by ANI STOVALL on 10/20/23 Normal [facility] LISSA RIVAS ([id number]) 1995 F Date Time Provider Department 10/12/23 [...] schedule the patient for the following- Location: [place] Provider: nurse Visit type: mid cycle Reason [...] ORTEGA MORRISSEY on 10/12/23 Normal [facility] No Panel Informationon 08-16 Interpretation and review of laboratory results Normal [facility] T4 FREE/FREE THYROXINEon Free T4 [Mass/Vol] 1.1 ng/dL 0.9 - 1.7 ng/dL [facility] THYROID PEROXIDASE ANTIBODYo n 08-17-2023 Interpretation and review of laboratory results Normal [facility] TPO Ab Qn 3.3 [IU]/mL [facility] Comment on above: Thyroid Peroxidase A ntibody test is used as an aid in diagnosis of autoimmune thyroid disease. Clinical correlation is required. [facility] THYROID STIMULATING HORMONEo n 08-17-2023 TSH Qn 2.690 m[IU]/L [facility] Comment on above: If [...] E, et al. 2017 Guidelines of the [place] Thyroid Association for the Diagnosis and Management of Thyroid Disease during and the . Thyroid, 2017:27:3:315-389. HCG QUAL UR B/Oon 07-29-2023 Interpretation and review of laboratory results Normal [facility] status Negative neg - pos Theresa torres [facility] Quality Check Yes yes/no [facility] XR HYSTEROSALPINGOGRAMon XR HYSTEROSALPINGOGRAM * * *Final [...] or left fallopian tube. IMPRESSION: Normal hysterosalpingogram. Benefits Manager: [place] Transcribe Date/Time: Aug 02 2023 4:22P Dictated by : ADRIANNA BAUMANN MD This examination was interpreted and the report reviewed and electronically signed by: ADRIANNA BAUMANN MD on Aug 02 2023 4:23PM EST [id number] [facility]N Telephone ([facility]) LISSA RIVAS ([id number]) 1995 F Date Time Provider Department 06/10/23 MARIANNEELSA Pérez NYDIA During your visit today, we recorded the following information about you: Elsa PuentesCHRISTIE 06/14/2023 1:38 PM Addendum Patient name and was confirmed at initiation of discussion. 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 Please see [email or web address] message for further discussion. CHRISTIE Magdaleno Licensed, [...] children. Elsa (more content not included)... Normal [facility] 04-23-2023 CNPN Telephone (NYDIA) LISSA RIVAS ([id number]) 1995 F Date Time Provider Department 04/23/23 ELSA PUENTES During your visit today, we recorded the following information about you: Elsa Puentes [facility] 05/17/2023 11:29 AM Signed Called patient to [...] NTHL1, PALB2, PDGFRA, PMS2, POLD1, POLE, POT1, OYFDT2H, PTCH1, PTEN, RAD51C, RAD51D, RB1, RET, SDHA, SDHAF2, SDHB, SDHC, SDHD, SMAD4, SMARCA4, SMARCB1, SMARCE1, STK11, SUFU, FFGA444, TP53, TSC1, TSC2, and VHL The Multi-Cancer [...] READY TO MOVE FORWARD. Elsa Puentes MS, [facility] Licensed, Certified Genetic Counselor Elsa Puentes [facility] 05/17/2023 11:29 AM Signed Spoke to Thao [...] detect the familial mutation. 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 The patient was offered SDHA single site mutation analysis through [employer] or self pay Integrated [employer]ACAnalysis with [employer] and SDHA single site mutation analysis through [employer]. After considering the risks, benefits, and limitations, the patient chose to pursue and provided informed consent for the following testing: SELF PAY Integrated [facility]ACAnalysis with [facility] and SDHA single site mutation analysis through [employer]. The [facility] panel includes APC, MICHAEL, AXIN2, [...] to the presenting phenotype. We discussed that [employer] may contact the patient by text or phone call regarding billing. The patient should watch for this communication and respond promptly. The patient should contact [employer] directly with any billing questions (ph. [phone]). Elsa Puentes MS, [facility] Licensed, Certified Genetic Counselor Allergies As of Date: 04/23/2023 (No Known Allergies) Date Reviewed: 01/04/2023 Reviewed by: Domenica Coon Ma - Fully Assessed Reason for Visit: Follow Up [171] Primary Visit Diagnosis:Family history of cancer [Z80.9] Other Visit Diagnosis:Family history of gene mutation [Z84.81] Order(s):[facility] SEND OUT TST 1 [SQMISC1] Order #: [id number] FUTURE Prescriptions as of 05/17/2023 - letrozole [...] 04/23/2023 No (more content not included)... Normal [facility] US WHIon 02-08-2023 [facility] Vital Signs Date Time Vital Sign Value Performing Clinician Facility 10-23-2024 13:52-0400 Body mass index (BMI) [Ratio] 40.39 kg/m2 [employer] Work Phone: [facility] 10-23-2024 13:52-0400 Body weight 103.42 kg [employer] Work Phone: [facility] 10-23-2024 13:52-0400 Diastolic blood pressure 90 mm[Hg] [employer] Work Phone: [facility] 10-23-2024 13:52-0400 Systolic blood pressure 136 mm[Hg] Saravanan Zita DO Work Phone: [facility] 10-18-2024 14:18-0400 Body height 160.02 cm Lito Velazquez MD Work Phone: [facility] 10-18-2024 14:18-0400 Body mass index (BMI) [Ratio] 40.1 kg/m2 Ltio Velazquez MD Work Phone: [facility] 10-18-2024 14:18-0400 Body weight 102.96 kg Lito Velazquez MD Work Phone: [facility] 10-18-2024 14:18-0400 Diastolic blood pressure 90 mm[Hg] Lito Velazquez MD Work Phone: [facility] 10-18-2024 14:18-0400 Heart rate 105 /min Lito Velazquez MD Work Phone: [facility] 10-18-2024 14:18-0400 Respiratory rate 18 /min Lito Velazquez MD Work Phone: [facility] 10-18-2024 14:18-0400 SaO2% (BldA) [Mass fraction] 98 % Lito Velazquez MD Work Phone: [facility] 10-18-2024 14:18-0400 Systolic blood pressure 130 mm[Hg] Lito Velazquez MD Work Phone: [facility] 10-16-2024 09:03-0400 Body mass index (BMI) [Ratio] 40.61 kg/m2 Saravanan Zita DO Work Phone: [facility] 10-16-2024 09:03-0400 Body weight 103.99 kg Saravanan Zita DO Work Phone: [facility] 10-16-2024 09:03-0400 Diastolic blood pressure 86 mm[Hg] Saravanan Zita DO Work Phone: [facility] 10-16-2024 09:03-0400 Systolic blood pressure 120 mm[Hg] Saravanan Zita DO Work Phone: [facility] 10-11-2024 14:04-0400 Body height 160 cm Alton Rebolledo INSURANCE CLAIMS EXAMINER-LEAN PROCESS DEPLOYMENT CONSULTANT Work Phone: [facility] 10-11-2024 14:04-0400 Body mass index (BMI) [Ratio] 40.28 kg/m2 Alton Rebolledo INSURANCE CLAIMS EXAMINER-LEAN PROCESS DEPLOYMENT CONSULTANT Work Phone: [facility] 10-11-2024 14:04-0400 Body weight 103.15 kg Alton Rebolledo INSURANCE CLAIMS EXAMINER-LEAN PROCESS DEPLOYMENT CONSULTANT Work Phone: [facility] 10-11-2024 14:04-0400 Diastolic blood pressure 79 mm[Hg] Alton Rebolledo INSURANCE CLAIMS EXAMINER-LEAN PROCESS DEPLOYMENT CONSULTANT Work Phone: [facility] 10-11-2024 14:04-0400 Heart rate 106 /min Alton Rebolledo INSURANCE CLAIMS EXAMINER-LEAN PROCESS DEPLOYMENT CONSULTANT Work Phone: [facility] 10-11-2024 14:04-0400 Systolic blood pressure 127 mm[Hg] Alton Rebolledo INSURANCE CLAIMS EXAMINER-LEAN PROCESS DEPLOYMENT CONSULTANT Work Phone: [facility] 10-09-2024 09:20-0400 Body mass index (BMI) [Ratio] 40.3 kg/m2 Saravanan Zita DO Work Phone: [facility] 10-09-2024 09:20-0400 Body weight 103.19 kg Saravanan Zita DO Work Phone: [facility] 10-09-2024 09:20-0400 Diastolic blood pressure 86 mm[Hg] Saravanan Zita DO Work Phone: [facility] 10-09-2024 09:20-0400 Systolic blood pressure 136 mm[Hg] Saravanan Zita DO Work Phone: [facility] 10-02-2024 11:12-0400 Body mass index (BMI) [Ratio] 40.1 kg/m2 Saravanan Zita DO Work Phone: [facility] 10-02-2024 11:12-0400 Body weight 102.69 kg Saravanan Zita DO Work Phone: [facility] 10-02-2024 11:12-0400 Diastolic blood pressure 84 mm[Hg] Saravanan Zita DO Work Phone: [facility] 10-02-2024 11:12-0400 Systolic blood pressure 136 mm[Hg] Saravanan Zita DO Work Phone: [facility] 09-25-2024 13:26-0400 Body mass index (BMI) [Ratio] 39.95 kg/m2 Saravanan Zita DO Work Phone: [facility] 09-25-2024 13:26-0400 Body weight 102.29 kg Saravanan Zita DO Work Phone: [facility] 09-25-2024 13:26-0400 Diastolic blood pressure 80 mm[Hg] Saravanan Zita DO Work Phone: [facility] 09-25-2024 13:26-0400 Systolic blood pressure 130 mm[Hg] Saravanan Zita DO Work Phone: [facility] 09-13-2024 11:47-0400 Body mass index (BMI) [Ratio] 39.59 kg/m2 Saravanan Zita DO Work Phone: [facility] 09-13-2024 11:47-0400 Body weight 101.38 kg Saravanan Zita DO Work Phone: [facility] 09-13-2024 11:47-0400 Diastolic blood pressure 82 mm[Hg] Saravanan Zita DO Work Phone: [facility] 09-13-2024 11:47-0400 Systolic blood pressure 126 mm[Hg] Saravanan Zita DO Work Phone: [facility] 09-12-2024 10:39-0400 Diastolic blood pressure 87 mm[Hg] Ruthann Poe PA-C Work Phone: [facility] 09-12-2024 10:39-0400 Systolic blood pressure 130 mm[Hg] Ruthann Lavoy PA-C Work Phone: [facility] 09-12-2024 10:08-0400 Body height 160 cm Ruthann Lavoy PA-C Work Phone: [facility] 09-12-2024 10:08-0400 Body mass index (BMI) [Ratio] 39.57 kg/m2 Ruthann Lavoy PA-C Work Phone: [facility] 09-12-2024 10:08-0400 Body weight 101.33 kg Ruthann Lavoy PA-C Work Phone: [facility] 08-31-2024 15:22-0400 Body height 160 cm Cristiana Zuñiga RN Work Phone: [facility] 08-31-2024 15:22-0400 Body mass index (BMI) [Ratio] 39.5 kg/m2 Cristiana Zuñiga RN Work Phone: [facility] 08-31-2024 15:22-0400 Body weight 101.15 kg Cristiana Zuñiga RN Work Phone: [facility] 08-30-2024 11:46-0400 Body mass index (BMI) [Ratio] 39.4 kg/m2 Saravanan Zita DO Work Phone: [facility] 08-30-2024 11:46-0400 Body weight 100.88 kg Saravanan Zita DO Work Phone: [facility] 08-30-2024 11:46-0400 Diastolic blood pressure 76 mm[Hg] Saravanan Zita DO Work Phone: [facility] 08-30-2024 11:46-0400 Systolic blood pressure 116 mm[Hg] Saravanan Zita DO Work Phone: [facility] 08-16-2024 08:38-0400 Body mass index (BMI) [Ratio] 40.08 kg/m2 Rupal THAYER Work Phone: [facility] 08-16-2024 08:38-0400 Body weight 102.63 kg Rupal Patel PA Work Phone: [facility] 08-16-2024 08:38-0400 Diastolic blood pressure 80 mm[Hg] Rupal Patel PA Work Phone: [facility] 08-16-2024 08:38-0400 Systolic blood pressure 114 mm[Hg] Rupal Patel PA Work Phone: [facility] 07-18-2024 09:20-0400 Body height 160 cm Lito Velazquez MD Work Phone: [facility] 07-18-2024 09:20-0400 Body mass index (BMI) [Ratio] 40.03 kg/m2 Lito Velazquez MD Work Phone: [facility] 07-18-2024 09:20-0400 Body weight 102.51 kg Lito Velazquez MD Work Phone: [facility] 07-18-2024 09:20-0400 Diastolic blood pressure 78 mm[Hg] Lito Velazquez MD Work Phone: [facility] 07-18-2024 09:20-0400 Heart rate 90 /min Lito Velazquez MD Work Phone: [facility] 07-18-2024 09:20-0400 SaO2% (BldA) [Mass fraction] 98 % Lito Velazquez MD Work Phone: [facility] 07-18-2024 09:20-0400 Systolic blood pressure 128 mm[Hg] Lito Velazquez MD Work Phone: [facility] 05-23-2024 16:00-0500 Body height 160 cm Andrew Ferrer DPM Work Phone: [facility] 05-23-2024 16:00-0500 Body mass index (BMI) [Ratio] 38.83 kg/m2 Andrew ORDONEZM Work Phone: [facility] 05-23-2024 16:00-0500 Body weight 99.43 kg Andrew Ferrer DPM Work Phone: [facility] 03-08-2024 10:25-0500 Body height 160 cm Gabriel Roof DO Work Phone: [facility] 03-08-2024 10:25-0500 Body mass index (BMI) [Ratio] 40.03 kg/m2 Gabriel Roof DO Work Phone: [facility] 03-08-2024 10:25-0500 Body temperature 97.39 [degF] Agbriel Roof DO Work Phone: [facility] 03-08-2024 10:25-0500 Body weight 102.51 kg Gabriel Roof DO Work Phone: [facility] 03-08-2024 10:25-0500 Diastolic blood pressure 90 mm[Hg] Gabriel Roof DO Work Phone: [facility] 03-08-2024 10:25-0500 Systolic blood pressure 128 mm[Hg] Gabriel Roof DO Work Phone: [facility] 02-15-2024 15:12-0500 Body height 160 cm Robles yPleer DO Work Phone: [facility] 02-15-2024 15:12-0500 Body mass index (BMI) [Ratio] 38.26 kg/m2 Robles Goldsmith DO Work Phone: [facility] 02-15-2024 15:12-0500 Body weight 97.98 kg Robles Goldsmith DO Work Phone: [facility] 02-15-2024 15:12-0500 Diastolic blood pressure 84 mm[Hg] Robles Pyleer DO Work Phone: [facility] 02-15-2024 15:12-0500 Systolic blood pressure 136 mm[Hg] Robles Pyleer DO Work Phone: [facility] 08-17-2023 10:02-0400 Body mass index (BMI) [Ratio] 40.65 kg/m2 Mirta Gallagher MD Work Phone: [facility] 08-17-2023 10:02-0400 Body weight 104.1 kg Mirta Gallagher MD Work Phone: [facility] 08-17-2023 10:02-0400 Diastolic blood pressure 79 mm[Hg] Mirta Gallagher MD Work Phone: [facility] 08-17-2023 10:02-0400 Heart rate 73 /min Mirta Gallagher MD Work Phone: [facility] 08-17-2023 10:02-0400 Systolic blood pressure 129 mm[Hg] Mirta Gallagher MD Work Phone: [facility] 06-26-2022 19:10-0400 Body height 157.48 cm Josefina Kay Other [facility] Other 06-26-2022 19:10-0400 Body mass index (BMI) [Ratio] 40.64 kg/m2 Josefina Kay Other [facility] Other 06-26-2022 19:10-0400 Body weight 100.79 kg Josefina Kay Other [facility] Other 06-26-2022 19:10-0400 Diastolic blood pressure 87 mm[Hg] Josefina Kay Other [facility] Other 06-26-2022 19:10-0400 Respiratory rate 18 /min Josefinaketan Kay Other [facility] Other 06-26-2022 19:10-0400 SaO2% (BldA) [Mass fraction] 98 % Josefina Kay Other [facility] Other 06-26-2022 19:10-0400 Systolic blood pressure 132 mm[Hg] Josefina Kay Other [facility] Other Encounters Encounter Date Encounter Type Care Provider Facility Start: 10-23-2024 End: 10-23-2024 Bamboo flowsheet Saravanan Zita DO Work Phone: [facility] Start: 10-23-2024 End: 10-23-2024 Bamboo flowsheet Saravanan Zita DO Work Phone: [facility] Start: 10-23-2024 End: 10-23-2024 flow sheet Saravanan Zita DO Work Phone: [facility] Comment on above: Third trimester preg talya ([facility]); 36 weeks gestation of ([facility]); induced hypertension, antepartum ([facility]) Start: 10-23-2024 End: 10-23-2024 [facility] Start: 10-18-2024 End: 10-18-2024 ambulatory Lito Velazquez MD Work Phone: [facility] Work Phone: Start: 10-18-2024 End: 10-18-2024 Patient encounter procedure Kurt Pérez MD -[facility] Cardiology Work Phone: Start: 10-17-2024 End: 10-17-2024 Clinisync Result Encounter Saravanan Zita DO Work Phone: [facility] Unsolicited Start: 10-17-2024 End: 10-17-2024 Clinisync Result Encounter Saravanan Zita DO Work Phone: [facility] Unsolicited Start: 10-17-2024 End: 10-17-2024 Telephone encounter Nereyda LOMBARDO Work Phone: [facility] Start: 10-16-2024 End: 10-16-2024 Bamboo flowsheet Saravanan Zita DO Work Phone: [facility] Start: 10-16-2024 End: 10-16-2024 Bamboo flowsheet Saravanan Zita DO Work Phone: [facility] Start: 10-16-2024 End: 10-16-2024 Clinisync Result Encounter Generic External Data Provider [facility] Unsolicited Start: 10-16-2024 End: 10-16-2024 flow sheet Saravanan Zita DO Work Phone: [facility] Comment on above: induced hy pertension, antepartum ([facility]) (Primary Dx); Third trimester ([facility]); 35 weeks gestation of ([facility]) Start: 10-16-2024 End: 10-16-2024 ambulatory SARAVANAN ZITA Not Available Start: 10-11-2024 End: 10-11-2024 Clinisync Result Encounter Saravanan Zita DO Work Phone: [facility] Unsolicited Start: 10-11-2024 End: 10-11-2024 Clinisync Result Encounter Saravanan Zita DO Work Phone: [facility] Unsolicited Start: 10-11-2024 End: 10-11-2024 Office outpatient visit 25 minutes Alton GONZALEZ Work Phone: [facility] Comment on above: Insulin controlled g estational diabetes mellitus (GDM) in third trimester (Primary Dx) Start: 10-11-2024 End: 10-11-2024 ambulatory ALTON [facility] Start: 10-09-2024 End: 10-09-2024 Bamboo flowsheet Saravanan Zita DO Work Phone: [facility] Start: 10-09-2024 End: 10-09-2024 Bamboo flowsheet Saravanan Zita DO Work Phone: [facility] Start: 10-09-2024 End: 10-09-2024 ambulatory SARAVANAN ZITA Not Available Start: 10-09-2024 End: 10-09-2024 flow sheet Saravanan Zita DO Work Phone: [facility] Comment on above: Third trimester preg talya ([facility]); 34 weeks gestation of ([facility]); Herpes simplex virus type 1 (HSV-1) dermatitis; Insulin controlled gestational diabetes mellitus (GDM) during , antepartum ([facility]) Start: 10-04-2024 End: 10-04-2024 Clinisync Result Encounter Generic External Data Provider [facility] Unsolicited Start: 10-04-2024 End: 10-04-2024 Clinisync Result Encounter Generic External Data Provider [facility] Unsolicited Start: 10-02-2024 End: 10-02-2024 flow sheet Saravanan Zita DO Work Phone: [facility] Comment on above: Herpes simplex (Prim jose manuel Dx); 33 weeks gestation of ([facility]); Encounter for routine care ([facility]); Third trimester ([facility]) Start: 10-02-2024 End: 10-02-2024 ambulatory SARAVANAN ZITA Not Available Start: 09-27-2024 End: 09-27-2024 Clinisync Result Encounter Generic External Data Provider [facility] Unsolicited Start: 09-27-2024 End: 09-27-2024 Clinisync Result Encounter Generic External Data Provider [facility] Unsolicited Start: 09-25-2024 End: 09-25-2024 Bamboo flowsheet Saravanan Zita DO Work Phone: [facility] Start: 09-25-2024 End: 09-25-2024 Bamboo flowsheet Saravanan Zita DO Work Phone: [facility] Start: 09-25-2024 End: 09-25-2024 flow sheet Saravanan Zita DO Work Phone: [facility] Comment on above: Third trimester preg talya ([facility]); Insulin controlled gestational diabetes mellitus (GDM) during , antepartum ([facility]); 32 weeks gestation of ([facility]) Start: 09-25-2024 End: 09-25-2024 ambulatory SARAVANAN ZITA Not Available Start: 09-20-2024 End: 09-20-2024 Office outpatient visit 25 minutes Alton Rebolledo INSURANCE CLAIMS EXAMINER-[employer] DEPLOYMENT CONSULTANT Work Phone: [facility] Comment on above: Insulin controlled g estational diabetes mellitus (GDM) in third trimester (Primary Dx); Gestational diabetes requiring insulin Start: 09-20-2024 End: 09-20-2024 ambulatory ALTON VIRGEN [facility] Start: 09-18-2024 End: 09-18-2024 Orders Only Corby Rose AUTOMOTIVE SALES MANAGER [facility] Comment on above: Gestational diabetes requiring insulin; Elevated blood pressure affecting , antepartum; Insulin controlled gestational diabetes mellitus (GDM) in third trimester; Abnormal liver enzymes Start: 09-14-2024 End: 09-14-2024 Clinisync Result Encounter Generic External Data Provider [facility] Unsolicited Start: 09-14-2024 End: 09-14-2024 Clinisync Result Encounter Generic External Data Provider [facility] External [facility] Unsolicited Start: 09-14-2024 Non-patient / Non-visit Jassi Fair MD -[facility] Cardiology Work Phone: Start: 09-13-2024 End: 09-13-2024 Bamboo flowsheet Saravanan Zita DO Work Phone: [facility] Start: 09-13-2024 End: 09-13-2024 Bamboo flowsheet Saravanan Zita DO Work Phone: [facility] Start: 09-13-2024 End: 09-13-2024 ambulatory SARAVANAN ZITA Not Available Start: 09-13-2024 End: 09-13-2024 flow sheet Saravanan Zita DO Work Phone: [facility] Comment on above: History of gestation al diabetes (Primary Dx); Third trimester ([facility]); 31 weeks gestation of ([facility]) Start: 09-12-2024 End: 09-12-2024 Clinisync Result Encounter Saravanan Zita DO Work Phone: [facility] Unsolicited Start: 09-12-2024 End: 09-12-2024 Clinisync Result Encounter Saravanan Ahumada DO Work Phone: [facility] Unsolicited Start: 09-12-2024 End: 09-12-2024 Documentation procedure Ruthann Poe PA-C Work Phone: [facility] Start: 09-12-2024 End: 09-12-2024 Office outpatient new 45 minutes Ruthann Poe PA-C Work Phone: [facility] Comment on above: Insulin controlled g estational diabetes mellitus (GDM) in third trimester; Abnormal liver enzymes; Abnormal genetic test; Gestational diabetes requiring insulin; Elevated blood pressure affecting , antepartum Start: 09-12-2024 End: 09-12-2024 ambulatory [facility] Start: 09-11-2024 End: 09-11-2024 Telemedicine consultation with patient Mirta Gallagher MD Work Phone: Endocrinology Start: 09-11-2024 End: 09-11-2024 ambulatory Mirta Gallagher MD Work Phone: Endocrinology Comment on above: Monoallelic mutation of SDHA gene (Primary Dx); Gestational diabetes mellitus (GDM) in third trimester, gestational diabetes method of control unspecified (HCC) Start: 09-06-2024 End: 09-06-2024 Orders Only Yesi Meade APRN-LYNDSAYM Work Phone: [facility] Start: 09-05-2024 End: 09-05-2024 Orders Only Jackson Cruz MD Work Phone: [facility] Comment on above: Monoallelic mutation of SDHA gene (Primary Dx) Start: 09-04-2024 End: 09-04-2024 ambulatory MIRTA GALLAGHER Facility:[facility] Start: 08-31-2024 End: 08-31-2024 ambulatory Cristiana Zuñiga RN Work Phone: [facility] Comment on above: Gestational diabetes mellitus (GDM) in third trimester, gestational diabetes method of control unspecified (Primary Dx) Start: 08-30-2024 End: 08-30-2024 Bamboo flowsheet Saravanan Zita DO Work Phone: [facility] Start: 08-30-2024 End: 08-30-2024 Bamboo flowsheet Saravanan Zita DO Work Phone: [facility] Start: 08-30-2024 End: 08-30-2024 Chart abstracting Scanning Provider External [facility] Start: 08-30-2024 End: 08-30-2024 ambulatory SARAVANAN AHUMADA Not Available Start: 08-30-2024 End: 08-30-2024 flow sheet Saravanan Zita DO Work Phone: [facility] Comment on above: 28 weeks gestation o f ; Third trimester ; Gestational diabetes mellitus (GDM), antepartum, gestational diabetes method of control unspecified; Herpes simplex virus type 1 (HSV-1) dermatitis Start: 08-24-2024 End: 08-24-2024 Patient encounter procedure Lito Velazquez MD Work Phone: [facility] Work Phone: Start: 08-24-2024 End: 08-24-2024 ambulatory Lito Velazquez MD Work Phone: [facility] Work Phone: Start: 08-24-2024 Non-patient / Non-visit Iveth Ding MD -[facility] Cardiology Work Phone: Start: 08-23-2024 End: 08-23-2024 Clinisync [...] encounter procedure Lito Velazquez MD Work Phone: [facility] Work Phone: Start: 07-18-2024 End: 07-18-2024 Periodic preventive med est patient 18-39 yrs Lito Velazquez MD Work Phone: [facility] Comment on above: Annual physical exam (Primary [...] 30 minutes Andrew Ferrer DPM Work Phone: [facility] Comment on above: Onychomycosis (Prima ry [...] End: 04-04-2024 Patient encounter procedure Ortega Morrissey INSURANCE CLAIMS EXAMINER.LEAN PROCESS DEPLOYMENT CONSULTANT Work Phone: [facility] Comment on above: Progesterone Questio n Start: 2024 End: 2024 Nursing evaluation of patient and report Us Tech 1 [facility] Work Phone: [facility] Comment on above: Supervision of pregn thor with history of infertility, first trimester Start: 2024 End: 04-04-2024 ambulatory Ortega Mindzora INSURANCE CLAIMS EXAMINER.LEAN PROCESS DEPLOYMENT CONSULTANT Work Phone: [facility] Start: 03-27-2024 End: 03-27-2024 flow sheet [facility] Comment on above: GA: 6w1d Start: 03-27-2024 End: 03-27-2024 ambulatory SARAVANAN ZITA Not Available Start: 03-17-2024 End: 03-17-2024 ambulatory ORTEGA MINDZORA Facility:[facility] Start: 03-17-2024 End: 03-17-2024 Patient encounter procedure Ortega Waterszora INSURANCE CLAIMS EXAMINER.LEAN PROCESS DEPLOYMENT CONSULTANT Work Phone: [facility] Comment on above: Supervision of pregn thor with history of infertility, first trimester (Primary Dx) Start: 03-17-2024 End: 03-17-2024 Telemedicine consultation with patient Ortega Promise HELEN Work Phone: [facility] Start: 03-16-2024 End: 03-16-2024 Orders Only Madeleine Orta PA-C Work Phone: [facility] Comment on above: Encounter for pregna ncy test, result positive (Primary Dx) Start: 03-15-2024 End: 03-15-2024 ambulatory ORTEGA MORRISSEY Facility:[facility] Start: 03-13-2024 End: 03-13-2024 ambulatory ORTEGA MORRISSEY Facility:[facility] Start: 03-13-2024 End: 03-13-2024 Telephone encounter Fede Hairston MD Work Phone: [facility] Comment on above: +hpt today/lmp 02/12 skipped treatment this month Start: 03-10-2024 End: 03-10-2024 ambulatory MIRTAARVIND GALLAGHER Facility:[facility] Start: 03-08-2024 End: 03-08-2024 Office outpatient new 45 minutes Gabriel Blackwell DO Work Phone: [facility] Comment on above: Otalgia of both ears (Primary Dx); Temporomandibular joint disorder; Chronic allergic rhinitis; Postnasal drip Start: 03-08-2024 End: 03-08-2024 ambulatory [facility] Start: 02-28-2024 End: 02-28-2024 Telephone encounter Fede Hairston MD Work Phone: [facility] Comment on above: ortega cueva is not el ared for us should she still have it do Start: 02-23-2024 End: 02-25-2024 E-mail encounter from caregiver Ortega Oh CERVANTES Work Phone: [facility] Start: 02-23-2024 End: 02-25-2024 Patient encounter procedure Ortega Oh CERVANTES Work Phone: [facility] Comment on above: Next steps Start: 02-23-2024 End: 02-23-2024 ambulatory FEDE HAIRSTON Facility:[facility] Start: 02-23-2024 End: 02-23-2024 Nursing evaluation of patient and report Nurse Gayathri [facility] Comment on above: Female infertility Start: 02-21-2024 End: 02-21-2024 Telephone encounter Fede Hairston MD Work Phone: [facility] Comment on above: needs [facility] at [facility] Start: 02-17-2024 End: 02-17-2024 ambulatory FEDE HAIRSTON Facility:[facility] Start: 02-17-2024 End: 02-17-2024 Office outpatient visit 25 minutes Fede Hairston MD Work Phone: [facility] Comment on above: PCOS (polycystic ova kwadwo syndrome) (Primary Dx) Start: 02-15-2024 End: 02-15-2024 Patient encounter status Robles Goldsmith DO Work Phone: [facility] Start: 02-15-2024 End: 02-15-2024 Periodic preventive med est patient 18-39 yrs Robles Goldsmith DO Work Phone: [facility] Comment on above: Encounter for gyneco [...] cd1 01/12 Start: 01-14-2024 End: 01-17-2024 ambulatory MIRTAARVIND GALLAGHER Facility:[facility] Start: 12-31-2023 End: 12-31-2023 ambulatory ORTEGA MORRISSEY Facility:[facility] Start: 12-31-2023 End: 12-31-2023 Patient encounter procedure Ortega Morrissey APRN.CNP Work Phone: [facility] Comment on above: Encounter for artifi cial insemination (Primary Dx) Start: 12-21-2023 End: 12-21-2023 ambulatory [facility] Facility:[facility] Start: 12-21-2023 End: 12-21-2023 Nursing evaluation of patient and report Fede Hairston MD Work Phone: [facility] Comment on above: Female infertility Start: 12-13-2023 End: 12-13-2023 Telephone encounter Fede Hairston MD Work Phone: [facility] Comment on above: LMP 12/12/23/ set up monitored cycle; Patient Update Start: 11-28-2023 End: 11-28-2023 ambulatory DESHAWN RIOJAS Facility:[facility] Start: 11-28-2023 End: 11-28-2023 Patient encounter procedure Deshawn Riojas MD Work Phone: [facility] Comment on above: Female infertility ( Primary Dx) Start: 11-23-2023 End: 11-23-2023 ambulatory Ortega Morrissey INSURANCE CLAIMS EXAMINER.LEAN PROCESS DEPLOYMENT CONSULTANT Work Phone: [facility] Start: 11-23-2023 End: 11-23-2023 Patient encounter procedure Ortega Morrissey INSURANCE CLAIMS EXAMINER.LEAN PROCESS DEPLOYMENT CONSULTANT Work Phone: [facility] Comment on above: IUI Round 2 Start: 11-22-2023 End: 11-22-2023 ambulatory [facility] Facility:[facility] Start: 11-22-2023 End: 11-22-2023 Patient encounter procedure Ortega Morrissey INSURANCE CLAIMS EXAMINER.LEAN PROCESS DEPLOYMENT CONSULTANT Work Phone: Reproductive Endocrinology Infertility Comment on above: Procreation manageme nt investigation and testing (Primary Dx) Start: 11-22-2023 End: 11-22-2023 Telemedicine consultation with patient Ortega Morrissey APRN.LEAN PROCESS DEPLOYMENT CONSULTANT Work Phone: Reproductive Endocrinology Infertility Start: 11-22-2023 End: 11-22-2023 [facility] Start: 11-22-2023 End: 11-22-2023 ambulatory [facility] Facility:[facility] Start: 11-22-2023 End: 11-22-2023 Nursing evaluation of patient and report Nurse Gayathri [facility] Rep[facility] Endocrinology Infertility Comment on above: Female infertility Start: 11-18-2023 End: 11-18-2023 ambulatory Ortega Morrissey INSURANCE CLAIMS EXAMINER.LEAN PROCESS DEPLOYMENT CONSULTANT Work Phone: Reproductive Endocrinology Infertility Start: 11-18-2023 End: 11-18-2023 Patient encounter procedure Ortega Morrissey INSURANCE CLAIMS EXAMINER.LEAN PROCESS DEPLOYMENT CONSULTANT Work Phone: Reproductive Endocrinology Infertility Comment on above: IUI Medication quest ion Start: 11-12-2023 End: 11-15-2023 Telephone encounter Self [facility]ology Infertility Comment on above: iui 10/25 , cd 1 8/16 Start: 10-26-2023 End: 10-26-2023 ambulatory Ortega Morrissey APRN.LEAN PROCESS DEPLOYMENT CONSULTANT Work Phone: Reproductive Endocrinology Infertility Start: 10-26-2023 End: 10-26-2023 Patient encounter procedure Ortega Morrissey APRN.LEAN PROCESS DEPLOYMENT CONSULTANT Work Phone: Reproductive Endocrinology Infertility Comment on above: Encounter for artifi cial insemination (Primary Dx) Progesterone Questio n Start: 10-22-2023 End: 10-22-2023 Nursing evaluation of patient and report Nurse Gayathri [facility] Rep[facility] Endocrinology Infertility Comment on above: Female infertility Start: 10-22-2023 End: 10-22-2023 ambulatory ORTEGA PROMISE Facility:[facility] Start: 10-20-2023 Telephone encounter Self Rep ro[facility] Endocrinology Infertility Comment on above: trigger shot Start: 10-12-2023 Telephone encounter Fede Hairston MD Work Phone: Reproductive Endocrinology Infertility Comment on above: Ortega lmp today/re day 11-13 for iui Start: 09-10-2023 End: 09-10-2023 Patient encounter procedure Ortega Morrissey APRN.CNM Work Phone: Reproductive Endocrinology Infertility Comment on above: Screen for sexually transmitted diseases (Primary Dx); Secondary amenorrhea; Female infertility Start: 09-10-2023 End: 09-10-2023 Telemedicine consultation with patient Ortega Morrissey APRN.CNM Work Phone: Reproductive Endocrinology Infertility Start: 09-08-2023 [...] Endocrinology Infertility Comment on above: [facility] Start: 07-29-2023 ambulatory FEDE HAIRSTON Facility:[facility] Start: 07-29-2023 End: 07-29-2023 Subsequent hospital visit by physician g [facility] Radiology Gastrointestinal Comment on above: Fertility testing [Z 31.41] Start: 07-29-2023 End: 07-29-2023 Nursing evaluation of patient and report [facility] Comment on above: Encounter for fertil ity testing (Primary Dx); Pre-procedure lab exam Start: 07-29-2023 End: 07-29-2023 Patient encounter status Nurse Gayathri [facility] Start: 06-16-2023 Telephone encounter Fina pérez [facility] Work Phone: Genetic Healthcare Comment on above: Women Nurse - O ther (Hereditary Paraganglioma- Pheochromocytoma Syndrome clinic) Start: 06-10-2023 Telephone encounter Elsa altman [facility] Work Phone: Genetic Healthcare Comment on above: Results (Genetic) Start: 05-25-2023 Telephone encounter Fede Hairston MD Work Phone: Reproductive Endocrinology Infertility Comment on above: refill letrozol/cycl e to start in next week Start: 04-23-2023 Telephone encounter Elsa altman [facility] Work Phone: Genetic Healthcare Comment on above: Follow Up Start: 04-21-2023 End: 04-21-2023 ambulatory FEDE HAIRSTON Facility:[facility] Start: 04-21-2023 End: 04-21-[address] [facility] Work Phone: Genetic Healthcare Comment on above: Family history of br east cancer (Primary Dx); Family history of prostate cancer Start: 04-21-2023 End: 04-21-2023 Telemedicine consultation with patient Elsa Puentes [facility] Work Phone: [facility] Start: 04-07-2023 End: 04-07-2023 ambulatory Fede Hairston MD Work Phone: Reproductive Endocrinology Infertility Comment on above: PCOS (polycystic ova kwadwo syndrome) (Primary Dx); Fertility testing Start: 04-07-2023 End: 04-07-2023 Telemedicine consultation with patient Fede Hairston MD Work Phone: [facility] Start: 02-08-2023 End: 02-08-2023 ambulatory Fede Hairston MD Work Phone: Reproductive Endocrinology Infertility Start: 02-08-2023 End: 02-08-2023 Patient encounter procedure Fede Hairston MD Work Phone: [facility] Start: 02-04-2023 Telephone encounter Fede Hairston MD Work Phone: Reproductive Endocrinology Infertility Comment on above: started letrozole Start: 06-26-2022 End: 06-26-2022 ambulatory Josefina Kay Other [facility] Other Start: 06-26-2022 Office outpatient visit 15 minutes Josefina Kay [facility] [place] Start: 12-05-2019 Patient encounter procedure [facility] Facility:H1 Procedures Date Procedure Procedure Detail Performing Clinician Start: 10-23-2024 Urnls dip stick/tablet rgnt non-auto w/o micrscp Saravanan Zita DO Work Phone: Start: 10-17-2024 US OB BPP W NON-STRESS Saravanan Zita DO Work Phone: Start: 10-16-2024 ALL CBC WITH AUTO DIFF Selina Church P Work Phone: Start: 10-16-2024 Urnls dip stick/tablet rgnt non-auto w/o micrscp Saravanan Zita DO Work Phone: Start: 10-11-2024 US OB BPP W NON-STRESS Saravanan Zita DO Work Phone: Start: 10-09-2024 Urnls dip stick/tablet rgnt non-auto w/o micrscp Saravanan Zita DO Work Phone: Start: 10-04-2024 US OB BPP W NON-STRESS [...] stick/tablet rgnt non-auto w/o micrscp Selina Denson MANAGER SOCIAL Work Phone: Start: 09-12-2024 [facility] UA (CLEAN/CATCH) AUDIO VISUAL DESIGN ENGINEER/MICRO IF IND. Saravanan Zita DO Work Phone: Start: 09-12-2024 Blood count complete automated Ruthann Poe PA-C Work Phone: Start: 09-12-2024 Urine albumin [...] after 1st trimest / gestation Ortega Morrissey INSURANCE CLAIMS EXAMINER.LEAN PROCESS DEPLOYMENT CONSULTANT Work Phone: Start: 03-27-2024 Drug scrn 1+ class nonchromo Not In System Ref Prov Start: 02-23-2024 Us pelvic nonobstetric image dcmtn limited/f/u Ortega Mindzora INSURANCE CLAIMS EXAMINER.LEAN PROCESS DEPLOYMENT CONSULTANT Work Phone: Start: 02-15-2024 Smr prim src wet mount nfct agt Robles Goldsmith DO Work Phone: Start: 02-15-2024 APTIMA MULTITEST VAGINAL Robles kenny DO Work Phone: Start: 12-21-2023 Us pelvic nonobstetric image dcmtn limited/f/u Ortega Mindzora INSURANCE CLAIMS EXAMINER.LEAN PROCESS DEPLOYMENT CONSULTANT Work Phone: Start: 11-22-2023 Us pelvic nonobstetric image dcmtn limited/f/u Ortega Mindzora INSURANCE CLAIMS EXAMINER.LEAN PROCESS DEPLOYMENT CONSULTANT Work Phone: Start: 10-22-2023 Us pelvic nonobstetric image dcmtn limited/f/u Ortega Mindzora INSURANCE CLAIMS EXAMINER.LEAN PROCESS DEPLOYMENT CONSULTANT Work Phone: Start: 07-29-2023 Urine test visual color cmprsn meths Ortega Waterszo INSURANCE CLAIMS EXAMINER.CNM Work Phone: Start: 02-08-2023 Us pelvic nonobstetric real-time image complete Fede Hairston MD Work Phone: Plan of Treatment Date Care Activity Detail Author Start: 2070 RSV Vaccine (1 - 1-dose 75+ series) RSV Vaccine (1 - 1-dose 75+ series) [facility] Start: 2045 Zoster Vaccines (1 of 2) Zoster Vaccines (1 of 2) [facility] Start: 06-26-2032 DTaP,Tdap and Td Vaccines (7 - Td or Tdap) DTaP,Tdap and Td Vaccines (7 - Td or Tdap) [facility] Start: 06-26-2032 DTaP/Tdap/Td Vaccines (7 - Td or Tdap) DTaP/Tdap/Td Vaccines (7 - Td or Tdap) [facility] Start: 06-26-2032 Urine microalbumin profile DTaP,Tdap,Td Vaccine (7 - Td or Tdap) [facility] Start: 06-20-2027 Screening for malignant neoplasm of cervix Pap Smear [facility] Start: 10-11-2025 Adult BMI Screening Adult BMI Screening [facility] Start: 10-11-2025 Tobacco Screening Tobacco Screening [facility] Start: 09-12-2025 Adult BMI Screening Adult BMI Screening [facility] Start: 09-12-2025 Tobacco Screening Tobacco Screening [facility] Start: 08-31-2025 Adult BMI Screening Adult BMI Screening [facility] Start: 07-24-2025 End: 07-24-2025 Patient [...] physical exam Expected: 07/18/2025 (Approximate), Expires: 10/17/2025 [facility] Comment on above: Expected: 07/18/2025 (Approximate), Expi res: 10/17/2025 Start: 07-18-2025 End: 10-17-2025 Lipid 1996 panel - Serum or Plasma Lipid panel Lab Routine Annual physical exam Expected: 07/18/2025 (Approximate), Expires: 10/17/2025 [facility] Comment on above: Expected: 07/18/2025 (Approximate), Expi res: 10/17/2025 Start: 07-18-2025 End: 10-17-2025 Thyrotropin [Units/volume] in Serum or Plasma TSH Lab Routine Annual physical exam Expected: 07/18/2025 (Approximate), Expires: 10/17/2025 [facility] Comment on above: Expected: 07/18/2025 (Approximate), Expi res: 10/17/2025 Start: 12-11-2024 End: 12-11-2024 ambulatory 12/11/2024 8:50 AM EDT Visit HEENA LAFLEUR [address] [place] [id number] Saravanan Ahumada DO [address] [place] [address] [facility]LE[facility] Start: 11-27-2024 Influenza vaccination [facility] Start: 10-23-2024 End: 10-23-2025 Alanine aminotransferase [Enzymatic activity/volume] in Serum or Plasma ALT Lab Routine 36 weeks gestation of ([facility]) induced hypertension, antepartum ([facility]HS-HCC) Expected: 10/23/2024 (Approximate), Expires: 10/23/2025 [facility] Healthcare Comment on above: Expected: 10/23/2024 (Approximate), Expi res: 10/23/2025 Start: 10-23-2024 End: 10-23-2025 Aspartate aminotransferase [Enzymatic activity/volume] in Serum or Plasma AST Lab Routine 36 weeks gestation of ([facility]) induced hypertension, antepartum (HHS-HCC) Expected: 10/23/2024 (Approximate), Expires: 10/23/2025 [facility] Comment on above: Expected: 10/23/2024 (Approximate), Expi res: 10/23/2025 Start: 10-23-2024 End: 10-23-2025 CBC W Auto Differential panel - Blood CBC and differential Lab Routine 36 weeks gestation of ([facility]) induced hypertension, antepartum ([facility]) Expected: 10/23/2024 (Approximate), Expires: 10/23/2025 [facility] Comment on above: Expected: 10/23/2024 (Approximate), Expi res: 10/23/2025 Start: 10-23-2024 End: 10-23-2025 Creatinine [Mass/volume] in Serum or Plasma Creatinine Lab Routine 36 weeks gestation of ([facility]) induced hypertension, antepartum ([facility]) Expected: 10/23/2024 (Approximate), Expires: 10/23/2025 [facility] Comment on above: Expected: 10/23/2024 (Approximate), Expi res: 10/23/2025 Start: 10-23-2024 End: 10-23-2025 CULTURE, GROUP B STREP WITH SUSCEPTIBLITY CULTURE, GROUP B STREP WITH SUSCEPTIBLITY Lab Routine Third trimester ([facility]) Expected: 10/23/2024, Expires: 10/23/2025 [facility] Work Phone: Comment on above: Expected: 10/23/2024, Expires: Start: 10-23-2024 End: 10-23-2025 Lactate dehydrogenase [Enzymatic activity/volume] in Serum or Plasma by Lactate to pyruvate reaction Lactate dehydrogenase Lab Routine 36 weeks gestation of ([facility]) induced hypertension, antepartum ([facility]) Expected: 10/23/2024, Expires: 10/23/2025 [facility] Comment on above: Expected: 10/23/2024, Expires: Start: 10-23-2024 End: 10-23-2025 Protein, urine, 24 hour Protein, urine, 24 hour Lab Routine 36 weeks gestation of ([facility]) induced hypertension, antepartum ([facility]HS-HCC) Expected: 10/23/2024 (Approximate), Expires: 10/23/2025 [facility] Comment on above: Expected: 10/23/2024 (Approximate), Expi res: 10/23/2025 Start: 10-23-2024 End: 10-23-2025 Pt and ptt Pt and ptt Lab Routine 36 weeks gestation of ([facility]) induced hypertension, antepartum (HHS-HCC) Expected: 10/23/2024, Expires: 10/23/2025 [facility] Comment on above: Expected: 10/23/2024, Expires: Start: 10-23-2024 End: 10-23-2025 Urate [Mass/volume] in Serum or Plasma Uric acid Lab Routine 36 weeks gestation of ([facility]) induced hypertension, antepartum ([facility]HS-HCC) Expected: 10/23/2024 (Approximate), Expires: 10/23/2025 [facility] Comment on above: Expected: 10/23/2024 (Approximate), Expi res: 10/23/2025 Start: 10-23-2024 End: 10-23-2025 Urea nitrogen [Mass/volume] in Serum or Plasma BUN Lab Routine 36 weeks gestation of ([facility]) induced hypertension, antepartum (HHS-HCC) Expected: 10/23/2024, Expires: 10/23/2025 [facility] Comment on above: Expected: 10/23/2024, Expires: Start: 10-23-2024 End: 10-23-2024 Patient encounter procedure 10/23/2024 1:30 PM EDT Routine [facility] [address] [place] [phone] Saravanan Ahumada DO [address] [place] [address] [facility] Start: 10-23-2024 End: 10-23-2024 Patient encounter procedure 10/23/2024 8:30 AM EDT Office Visit Maternal- Medicine at [facility] [address] [place] [address] Vy Corona MD [address] [facility], [address] [place] [address] Maternal- Medicine at [facility] Start: 10-16-2024 End: 10-16-2025 Alanine aminotransferase [Enzymatic activity/volume] in Serum or Plasma ALT Lab Routine induced hypertension, antepartum (HHS-HCC) Expected: 10/16/2024 (Approximate), Expires: 10/16/2025 [facility] Comment on above: Expected: 10/16/2024 (Approximate), Expi res: 10/16/2025 Start: 10-16-2024 End: 10-16-2025 Aspartate aminotransferase [Enzymatic activity/volume] in Serum or Plasma AST Lab Routine induced hypertension, antepartum (HHS-HCC) Expected: 10/16/2024 (Approximate), Expires: 10/16/2025 [facility] Comment on above: Expected: 10/16/2024 (Approximate), Expi res: 10/16/2025 Start: 10-16-2024 End: 10-16-2025 CBC W Auto Differential panel - Blood CBC and differential Lab Routine induced hypertension, antepartum ([facility]HS-HCC) Expected: 10/16/2024 (Approximate), Expires: 10/16/2025 [facility] Comment on above: Expected: 10/16/2024 (Approximate), Expi res: 10/16/2025 Start: 10-16-2024 End: 10-16-2025 Creatinine [Mass/volume] in Serum or Plasma Creatinine Lab Routine induced hypertension, antepartum ([facility]HS-HCC) Expected: 10/16/2024 (Approximate), Expires: 10/16/2025 [facility] Work Phone: Comment on above: Expected: 10/16/2024 (Approximate), Expi res: 10/16/2025 Start: 10-16-2024 End: 10-16-2025 Lactate dehydrogenase [Enzymatic activity/volume] in Serum or Plasma by Lactate to pyruvate reaction Lactate dehydrogenase Lab Routine induced hypertension, antepartum (HHS-HCC) Expected: 10/16/2024, Expires: 10/16/2025 [facility] Comment on above: Expected: 10/16/2024, Expires: Start: 10-16-2024 End: 10-16-2025 Pt and ptt Pt and ptt Lab Routine induced hypertension, antepartum (HHS-HCC) Expected: 10/16/2024, Expires: 10/16/2025 [facility] Comment on above: Expected: 10/16/2024, Expires: Start: 10-16-2024 End: 10-16-2025 Urate [Mass/volume] in Serum or Plasma Uric acid Lab Routine induced hypertension, antepartum (HHS-HCC) Expected: 10/16/2024 (Approximate), Expires: 10/16/2025 [facility] Comment on above: Expected: 10/16/2024 (Approximate), Expi res: 10/16/2025 Start: 10-16-2024 End: 10-16-2025 Urea nitrogen [Mass/volume] in Serum or Plasma BUN Lab Routine induced hypertension, antepartum (HHS-HCC) Expected: 10/16/2024, Expires: 10/16/2025 [facility] Comment on above: Expected: 10/16/2024, Expires: Start: 10-16-2024 End: 10-16-2024 Patient encounter procedure [facility]- [facility] at [facility] Comment on above: Arrived Start: 10-11-2024 End: 10-11-2024 Patient encounter procedure 10/11/2024 2:00 PM EDT Office Visit Maternal- Medicine at [facility] [address] [place] [address] Alton Rebolledo, INSURANCE CLAIMS EXAMINER-[employer]ESS DEPLOYMENT CONSULTANT [address] [place] [address] M[facility]- Medicine at [facility] Start: 10-09-2024 End: 10-09-2024 Patient encounter procedure 10/09/2024 9:00 AM EDT Routine [facility] [address] [place] [address] [place] [address] Saravanan Ahumada DO [facility] [place] [address] [facility] Start: 10-02-2024 End: 10-02-2024 Patient encounter procedure 10/02/2024 11:00 AM EDT Routine [facility] [address] [place] [phone] Saravanan Ahumada, DO [address] [place] [address] [facility] Start: 10-02-2024 End: 10-02-2024 Professional / ancillary services management 10/02/2024 10:30 AM EDT Ancillary Procedure [facility] [address] [facility] [place] [address] [facility] Start: 09-25-2024 End: 09-25-2024 Patient encounter procedure 09/25/2024 1:00 PM EDT Routine [facility] [address] [facility] [place] [address] Saravanan Ahumada, DO [address] [place] [address] Arrived [facility] Comment on above: Arrived Start: 09-20-2024 End: 09-20-2024 Telemedicine consultation with patient 09/20/2024 11:00 AM EDT Telemedicine Maternal- Medicine at [facility] [address] [place] [phone] Alton Rebolledo, INSURANCE CLAIMS EXAMINER-[employer] DEPLOYMENT CONSULTANT [address] [place] [address] M[facility]- Medicine at [facility] Start: 09-13-2024 End: 03-15-2025 US biophysical profile w non stress test US biophysical profile w non stress test Imaging Routine History of gestational diabetes Expected: 09/13/2024 (Approximate), Expires: 03/15/2025 [facility] Work Phone: Comment on above: Expected: 09/13/2024 (Approximate), Expi res: 03/15/2025 Start: 09-13-2024 End: 01-13-2025 US for US OB follow up transabdominal approach Imaging Routine History of gestational diabetes Expected: 09/13/2024, Expires: 01/13/2025 [facility] Comment on above: Expected: 09/13/2024, Expires: Start: 09-13-2024 End: 09-13-2024 Patient encounter procedure 09/13/2024 11:30 AM EDT Routine [facility] [address] [place] [address] Saravanan Ahumada DO [address] [place], [place] [id number] [facility] Start: 09-11-2024 End: 12-11-2024 METANEPHRINES, FREE PLASMA METANEPHRINES, FREE PLASMA Lab Routine Monoallelic mutation of SDHA gene Expected: 09/11/2024, Expires: 12/11/2024 [facility] Work Phone: Comment on above: Expected: 09/11/2024, Expires: Start: 09-11-2024 End: 09-11-2024 ambulatory 09/11/2024 9:00 AM EDT [facility] [address] [place] [address] Mirta Gallagher MD [address] [place] [address] Monoallelic mutation of SDHA gene Endocrinology Comment on above: Monoallelic mutation of SDHA gene Start: 09-06-2024 End: 09-06-2024 Professional / ancillary services management 09/06/2024 1:30 PM EDT Ancillary Procedure [facility] [address] [facility] [place] [address] [facility] Start: 09-05-2024 End: 09-05-2024 ambulatory 09/05/2024 2:00 PM EDT Results Only [facility] [place] [address] [address] [place] [address] SDHA [facility] [place] [address] Comment on above: SDHA Start: 09-05-2024 End: 09-05-2024 Patient encounter procedure 09/05/2024 1:45 PM EDT Office Visit [facility] [address] [place] [address] Мария Laboy MD [address] [place] [address] Monoallelic mutation of SDHA gene [facility] Comment on above: Monoallelic mutation of SDHA gene Start: 08-31-2024 End: 08-31-2024 ambulatory 08/31/2024 1:30 PM EDT Support Visit Maternal- Medicine at [facility] [address] [place] [address] Cristiana Zuñiga RN [address] [facility], [address] [place] [address] Nereyda Zheng LD [address] [place] [address] M[facility]- Medicine at [facility] Start: 08-30-2024 End: 08-30-2024 Patient encounter procedure 08/30/2024 11:20 AM EDT Routine [facility] [address] [facility] [place] [address] Saravanan Ahumada DO [address] [place] [address] [facility] Start: 08-16-2024 End: 08-16-2024 Patient encounter procedure [facility] Comment on above: Arrived Start: 07-18-2024 End: 10-17-2024 Cardiac event monitor Cardiac event monitor Cardiac Services Routine Palpitations Expected: 07/18/2024 (Approximate), Expires: 10/17/2024 [facility] Comment on above: Expected: 07/18/2024 (Approximate), Expi res: 10/17/2024 Start: 07-18-2024 End: 10-17-2024 CBC W Auto Differential panel - Blood CBC auto differential Lab Routine Annual physical exam 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 Polycystic ovaries Expected: 07/18/2024 (Approximate), Expires: 10/17/2024 [facility] Comment on above: Expected: 07/18/2024 (Approximate), [...] Polycystic ovaries Expected: 07/18/2024 (Approximate), Expires: 10/17/2024 [facility] Comment on above: Expected: 07/18/2024 (Approximate), Expi res: 10/17/2024 Start: 07-18-2024 End: 10-17-2024 US Heart Transthoracic Transthoracic echo (TTE) complete Echocardiography Routine Palpitations Murmur Expected: 07/18/2024 (Approximate), Expires: 10/17/2024 [facility] Comment on above: Expected: 07/18/2024 (Approximate), Expi res: 10/17/2024 Start: 07-18-2024 End: 07-18-2024 Patient encounter procedure 07/18/2024 9:15 AM EDT Office Visit [facility] [address] [place] [phone] Lito Velazquze MD [address] [place] [address] [facility] Start: 07-17-2024 End: 07-17-2025 CBC panel - Blood by Automated count CBC Lab Routine Diabetes mellitus screening Expected: 07/17/2024 (Approximate), Expires: 07/17/2025 [facility] Work Phone: Comment on above: Expected: 07/17/2024 (Approximate), Expi res: 07/17/2025 Start: 07-17-2024 End: 07-17-2025 Measurement of glucose 1 hour after glucose challenge for glucose tolerance test Glucose tolerance, 1 hour Lab Routine Diabetes mellitus screening Expected: 07/17/2024 (Approximate), Expires: 07/17/2025 [facility] Comment on above: Expected: 07/17/2024 (Approximate), Expi res: 07/17/2025 Start: 06-19-2024 End: 06-19-2024 Patient encounter procedure [facility] Start: 05-23-2024 End: 05-23-2024 Patient encounter procedure 05/23/2024 4:00 PM EST Office Visit [facility] [address] [place] [phone] Andrew Ferrer, NATANAEL [address] [facility] [place] [address] [facility] Start: 05-22-2024 End: 07-20-2024 Alpha fetoprotein, [...] PM EST Initial [facility] [address] [place] [address] [facility] [address] [phone] Manju Alford DO [address] [phone] [facility] Start: 04-21-2024 End: 04-21-2025 [...] PM EST Ancillary Procedure [facility] [address] [id number] [facility] NB OB Start: 2024 End: 2024 Nursing evaluation of patient and report 2024 11:10 AM EST Nurse Visit [facility] [address] [place] [address] ob scan [facility] Comment on above: ob scan Start: 03-30-2024 End: 03-30-2024 Patient encounter procedure 03/30/2024 12:40 PM EST [facility] [address] [place] [address] iCra Garcia V, MD [address] [place] [address] Weight management Endocrinology Comment on above: Weight [...] first trimester Expected: 03/27/2024 (Approximate), Expires: 03/27/2025 [facility] Comment on above: Expected: 03/27/2024 [...] drug screening Expected: 03/27/2024 (Approximate), Expires: 03/27/2025 [facility] Comment on above: Expected: 03/27/2024 (Approximate), Expi res: 03/27/2025 Start: 03-27-2024 End: 03-27-2025 Hepatitis B virus surface Ag [Presence] in Serum or Plasma by Immunoassay Hepatitis B surface antigen Lab Routine Encounter for supervision of normal first in first trimester Expected: 03/27/2024 (Approximate), Expires: 03/27/2025 [facility] Comment on above: Expected: 03/27/2024 (Approximate), Expi res: 03/27/2025 Start: 03-27-2024 End: 03-27-2025 Hepatitis C virus Ab [Presence] in Serum or Plasma by Immunoassay Hepatitis C antibody Lab Routine Encounter for supervision of normal first in first trimester Expected: 03/27/2024 (Approximate), Expires: 03/27/2025 [facility] Comment on above: Expected: 03/27/2024 [...] first trimester Expected: 03/27/2024 (Approximate), Expires: 03/27/2025 [facility] Comment on above: Expected: 03/27/2024 (Approximate), Expi res: 03/27/2025 Start: 03-27-2024 End: 03-27-2025 Rubella antibody, IgG Rubella antibody, IgG Lab Routine Encounter for supervision of normal first in first trimester Expected: 03/27/2024 (Approximate), Expires: 03/27/2025 [facility] Comment on above: Expected: 03/27/2024 (Approximate), Expi res: 03/27/2025 Start: 03-27-2024 End: 03-27-2025 Urinalysis complete panel - Urine Urinalysis with microscopic Lab Routine Encounter for supervision of normal first in first trimester Expected: 03/27/2024 (Approximate), Expires: 03/27/2025 [facility] Work Phone: Comment on above: Expected: 03/27/2024 (Approximate), Expi res: 03/27/2025 Start: 03-17-2024 End: 03-17-2025 OBSTETRIC ULTRASOUND WHI OBSTETRIC ULTRASOUND WHI Anc Imaging Routine Supervision of with history of infertility, first trimester Expected: 03/17/2024, Expires: 03/17/2025 [facility] Work Phone: Comment on above: Expected: 03/17/2024, Expires: Start: 03-17-2024 End: 03-17-2024 Patient encounter procedure 03/17/2024 2:00 PM [facility] [address] [place] [address] Ortega Morrissey, INSURANCE CLAIMS EXAMINER.[employer] [address] [place] [address] new preg [facility] Comment on above: new preg Start: 03-16-2024 End: 06-15-2024 Choriogonadotropin.beta subunit [Units/volume] in Serum or Plasma HCG QUANTITATIVE Lab Routine Encounter for test, result positive Expected: 03/16/2024, Expires: 06/15/2024 [facility] Work Phone: Comment on above: Expected: 03/16/2024, Expires: 5 Start: 03-15-2024 End: 03-15-2024 Patient encounter procedure 03/15/2024 3:45 PM EST Office Visit [facility] [address] [place] [address] [place] [address] lab [facility] Comment on above: lab Start: 02-28-2024 End: 05-29-2024 Progesterone [Mass/volume] in Serum or Plasma PROGESTERONE Lab Routine Female infertility Expected: 02/28/2024, Expires: 05/29/2024 [facility] Work Phone: Comment on above: Expected: 02/28/2024, Expires: 5 Start: 02-26-2024 End: 02-26-2024 Patient encounter procedure 02/26/2024 6:00 PM EST Office Visit [facility] [address] [place] [address] follicle us -benefit check [facility] Comment on above: follicle us -benefit check Start: 02-23-2024 End: 02-23-2024 Nursing evaluation of patient and report 02/23/2024 7:00 AM EST Nurse Visit [facility] [address] [place] [address] Rej, Nurse Gayathri [facility] [address] [place] [address] midcycle [facility] Comment on above: midcycle Start: 02-17-2024 End: 02-17-2024 Follow-up encounter 02/17/2024 9:30 AM EST [facility] [address] [place] [address] Fede Hairston MD [address] [place] [address] follow up [facility] Comment on above: follow up Start: 02-15-2024 End: 02-14-2025 FOLLICULAR US WHI FOLLICULAR US WHI Anc Imaging Routine Female infertility Expected: 02/15/2024, Expires: 02/14/2025 [facility] Work Phone: Comment on above: Expected: 02/15/2024, Expires: 5 Start: 01-19-2024 End: 01-19-2024 Patient encounter procedure 01/19/2024 6:00 PM EDT Office Visit [facility] [address] [place] [address] iui-benefit check [facility] Comment on above: iui-benefit check Start: 12-13-2023 End: 12-12-2024 FOLLICULAR US WHI FOLLICULAR US WHI Anc Imaging Routine Female infertility Expected: 12/13/2023, Expires: 12/12/2024 [facility] Work Phone: Comment on above: Expected: 12/13/2023, Expires: Start: 11-28-2023 Covid-19 Vaccine ( season) Covid-19 Vaccine ( season) [facility] Start: 11-28-2023 Covid-19 Vaccine ( season) Covid-19 Vaccine ( season) [facility] Start: 11-28-2023 Influenza vaccination [facility] Start: 11-22-2023 End: 11-22-2023 Nursing evaluation of patient and report 11/22/2023 7:15 AM EDT Nurse Visit [facility] [address] [place] [address] Greta Nurse Gayathri [facility] [address] [place] [address] Follicular scan [facility] Comment on above: Follicular scan Start: 11-18-2023 End: 11-18-2023 Patient encounter procedure 11/18/2023 6:00 PM EDT Office Visit [facility] [address] [place] [address] midcycle-benefit check [facility] Comment on above: midcycle-benefit check Start: 11-15-2023 End: 11-14-2024 FOLLICULAR US WHI FOLLICULAR US WHI Anc Imaging Routine Female infertility Expected: 11/15/2023, Expires: 11/14/2024 [facility] Work Phone: Comment on above: Expected: 11/15/2023, Expires: Start: 11-04-2023 End: 11-04-2023 Patient encounter procedure Endocrinology Comment on above: MED WT MGMT Start: 10-22-2023 End: 10-22-2023 Nursing evaluation of patient and report 10/22/2023 7:00 AM EDT Nurse Visit [facility] [address] [place] [address] Rej, Nurse Gayathri [facility] [address] [place] [address] midcycle [facility] Comment on above: midcycle Start: 09-19-2023 End: 12-19-2023 Progesterone [Mass/volume] in Serum or Plasma PROGESTERONE Lab Routine Irregular menstrual cycle Expected: 09/19/2023 (Approximate), Expires: 12/19/2023 [facility] Work Phone: Comment on above: Expected: 09/19/2023 (Approximate), Expi res: 12/19/2023 Start: 09-10-2023 End: 09-10-2023 Patient encounter procedure 09/10/2023 3:00 PM EDT [facility] [address] [place] [address] Ortega Morrissey APRN.CNM [address] [place] [address] IUI 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 [facility] 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 on above: 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 Start: 09-10-2023 End: 12-10-2023 Chlamydia trachomatis+Neisseria gonorrhoeae DNA [Presence] in Unspecified specimen by JANESSA with probe detection GONORRHEA/CHLAMYDIA NAAT Lab Routine Screen for sexually transmitted diseases Expected: 09/10/2023 (Approximate), Expires: 12/10/2023 [facility] Comment on above: Expected: 09/10/2023 (Approximate), Expi res: 12/10/2023 Start: 09-10-2023 End: 12-10-2023 Choriogonadotropin.beta subunit [Units/volume] in Serum or Plasma HCG QUANTITATIVE Lab Routine Secondary amenorrhea Expected: 09/10/2023, Expires: 12/10/2023 [facility] Comment on above: Expected: 09/10/2023, Expires: 4 Start: 09-10-2023 End: 09-09-2024 FOLLICULAR US WHI FOLLICULAR US WHI Anc Imaging Routine Female infertility Expected: 09/10/2023, Expires: 09/09/2024 [facility] Comment on above: Expected: 09/10/2023, Expires: 5 Start: 09-10-2023 End: 12-10-2023 Hepatitis B virus surface Ag [Presence] in Serum HEPATITIS B SURFACE ANTIGEN Lab Routine Screen for sexually transmitted diseases Expected: 09/10/2023, Expires: 12/10/2023 [facility] Comment on above: Expected: 09/10/2023, Expires: Start: 09-10-2023 End: 12-10-2023 Hepatitis C virus Ab [Presence] in Serum HEPATITIS C ANTIBODY IA WITH CONFIRMATION Lab Routine Screen for sexually transmitted diseases Expected: 09/10/2023, Expires: 12/10/2023 [facility] Comment on above: Expected: 09/10/2023, Expires: 4 Start: 09-10-2023 End: 12-10-2023 HIV 1+2 Ab [Presence] in Serum or Plasma by Immunoassay HIV 1/2 COMBO WITH REFLEX TO DIFFERENTIATION Lab Routine Screen for sexually transmitted diseases Expected: 09/10/2023, Expires: 12/10/2023 [facility] Comment on above: Expected: 09/10/2023, Expires: 4 Start: 09-10-2023 End: 12-10-2023 Progesterone [Mass/volume] in Serum or Plasma PROGESTERONE Lab Routine Secondary amenorrhea Expected: 09/10/2023, Expires: 12/10/2023 [facility] Work Phone: Comment on above: Expected: 09/10/2023, Expires: Start: 09-10-2023 End: 12-10-2023 SYPHILIS TOTAL W/REFLEX SYPHILIS TOTAL W/REFLEX Lab Routine Screen for sexually transmitted diseases Expected: 09/10/2023, Expires: 12/10/2023 [facility] Comment on above: Expected: 09/10/2023, Expires: Start: 09-02-2023 End: 12-02-2023 Choriogonadotropin.beta subunit [Units/volume] in Serum or Plasma [facility] Comment on above: Expected: 09/02/2023, Expires: Start: 09-02-2023 End: 12-02-2023 Progesterone [Mass/volume] in Serum or Plasma [facility] Work Phone: Comment on above: Expected: 09/02/2023, Expires: Start: 08-19-2023 End: 08-19-2023 Follow-up encounter 08/19/2023 10:30 AM EDT [facility] [address] [place] [address] Fede Hairston MD [address] [place] [address] follow up / rescheduled ok per [facility] Comment on above: follow up / rescheduled ok per KF Start: 08-17-2023 End: 08-17-2023 Patient encounter procedure 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 Start: 06-16-2023 End: 09-15-2023 METANEPHRINES, FREE PLASMA METANEPHRINES, FREE PLASMA Lab Routine Monoallelic mutation of SDHA gene Expected: 06/16/2023, Expires: 09/15/2023 [facility] Work Phone: Comment on above: Expected: 06/16/2023, Expires: Start: 06-01-2023 Varicella vaccination Varicella Vaccines (2 of 2 - 2-dose childhood series) [facility] Start: 05-17-2023 End: 08-16-2023 MISC SEND OUT TST 1 MISC SEND OUT TST 1 Lab Routine Family history of cancer Family history of gene mutation Expected: 05/17/2023, Expires: 08/16/2023 [facility] Work Phone: Comment on above: Expected: 05/17/2023, Expires: 4 Start: 04-17-2023 End: 07-17-2023 Progesterone [Mass/volume] in Serum or Plasma PROGESTERONE BLD Lab Routine PCOS (polycystic ovarian syndrome) Expected: 04/17/2023 (Approximate), Expires: 07/17/2023 [facility] Work Phone: Comment on above: Expected: 04/17/2023 (Approximate), Expi res: 07/17/2023 Start: 03-29-2023 Behavioral Health Screening Behavioral Health Screening [facility] Start: 03-29-2023 Depression Assessment Depression Assessment [facility] Start: 02-04-2023 End: 05-06-2023 Progesterone [Mass/volume] in Serum or Plasma PROGESTERONE BLD Lab Routine Encounter for fertility testing Expected: 02/04/2023, Expires: 05/06/2023 [facility] Work Phone: Comment on above: Expected: 02/04/2023, Expires: 4 Start: 11-27-2022 Covid-19 Vaccine ( season) Covid-19 Vaccine () [facility] Start: 11-27-2022 Influenza vaccination [facility] Start: 03-29-2022 Depression Assessment Depression Assessment [facility] Start: 2016 Pap Testing Pap Testing [facility] Start: 2016 Screening for malignant neoplasm of cervix [facility] Start: 2014 Hepatitis A Vaccines (1 of 2 - Risk 2-dose series) Hepatitis A Vaccines (1 of 2 - Risk 2-dose series) [facility] Start: 2014 Urine microalbumin profile DTaP,Tdap,Td Vaccine (1 - Tdap) [facility] Start: 2013 Adult BMI Follow Up Plan Adult BMI Follow Up Plan [facility] Start: 2013 Adult BMI Screening Adult BMI Screening [facility] Start: 2013 Anxiety Screening Anxiety Screening [facility] Start: 2013 Depression Screening Depression Screening [facility] Start: 2013 Hepatitis C Screening Hepatitis C Screening [facility] Start: 2013 Hepatitis C screening Hepatitis C Screening [facility] Start: 2013 HIV Screening HIV Screening [facility] Start: 2013 HIV screening HIV Screening [facility] Start: 2007 Depression Screening Depression Screening [facility] Start: 2007 Tobacco Screening Tobacco Screening [facility] Start: 1995 Covid-19 Vaccine (#1) Covid-19 Vaccine (#1) [facility] Start: 1995 Hepatitis B Vaccine (1 of 3 - 3-dose series) Hepatitis B Vaccine (1 of 3 - 3-dose series) [facility] Start: 1995 HIV screening HIV Screening [facility] Start: 1995 Lipid panel Lipid Panel [facility] Start: 1995 Yearly Adult Physical Yearly Adult Physical [facility] Bacteria identified in Urine by Culture Urine culture Microbiology Routine Missed menses Ordered: 04/21/2024 [facility] Comment on above: Ordered: 04/21/2024 Bacteria identified in Urine by Culture Urine culture Microbiology Routine Urinary tract infection without hematuria, site unspecified Ordered: 05/15/2024 [facility] Work Phone: Comment on above: Ordered: 05/15/2024 End: 05-17-2024 Cath & saline/contrast sonohyster/hysterosalpi XR HYSTEROSALPINGOGRAM Radiology Routine Fertility testing 1 Occurrences starting 04/18/2023 until 05/17/2024 [facility] Work Phone: Comment on above: 1 Occurrences starting 04/18/2023 until 05/17/2024 End: 09-12-2025 CBC panel - Blood by Automated count CBC without diff Lab Routine Insulin controlled gestational diabetes mellitus (GDM) in third trimester Abnormal liver enzymes Elevated blood pressure affecting , antepartum 1 Occurrences starting 09/12/2024 until 09/12/2025 [facility] Comment on above: 1 Occurrences starting 09/12/2024 until 09/12/2025 CBC W Auto Different ial panel - Blood CBC and differential Lab Routine Missed menses , unspecified gestational age Ordered: 04/21/2024 [facility] Comment on above: Ordered: 04/21/2024 End: 03-13-2025 Choriogonadotropin.beta subunit [Units/volume] in Serum or Plasma HCG QUANTITATIVE Lab Routine examination or test, unconfirmed Daily for 2 Occurrences starting 03/13/2024 until 03/13/2025 [facility] Work Phone: Comment on above: Daily for 2 Occurrences starting until 03/13/2025 Choriogonadotropin.b eta subunit [Units/volume] in Serum or Plasma HCG QUANTITATIVE Lab Routine examination or test, unconfirmed 03/13/2024 3:37 PM [facility] End: 09-12-2025 Comprehensive metabolic 2000 panel - Serum or Plasma Comprehensive metabolic panel Lab Routine Abnormal liver enzymes Abnormal genetic test Gestational diabetes requiring insulin Elevated blood pressure affecting , antepartum 1 Occurrences starting 09/12/2024 until 09/12/2025 [employer] Work Phone: Comment on above: 1 Occurrences starting 09/12/2024 until 09/12/2025 End: 07-15-2024 CT Abdomen W contrast IV CT ABDOMEN W IVCON Radiology Routine Intra-abdominal and pelvic swelling, mass and lump, unspecified site 1 Occurrences starting 06/16/2023 until 07/15/2024 [facility] Work Phone: Comment on above: 1 Occurrences starting 06/16/2023 until 07/15/2024 End: 07-15-2024 CT Chest W contrast IV CT CHEST W IVCON Radiology Routine Localized enlarged lymph nodes 1 Occurrences starting 06/16/2023 until 07/15/2024 [facility] Work Phone: Comment on above: 1 Occurrences starting 06/16/2023 until 07/15/2024 End: 07-15-2024 CT Neck W contrast IV CT NECK SOFT TISSUE W IVCON Radiology Routine Localized enlarged lymph nodes 1 Occurrences starting 06/16/2023 until 07/15/2024 [facility] Work Phone: Comment on above: 1 Occurrences starting 06/16/2023 until 07/15/2024 Hemoglobin A1c/Hemoglobin.total in Blood Hemoglobin A1c Lab Routine Missed menses , unspecified gestational age Ordered: 04/21/2024 [facility] Comment on above: Ordered: 04/21/2024 Hepatitis B virus surface Ag [Presence] in Serum or Plasma by Immunoassay Hepatitis B surface antigen Lab Routine Missed menses , unspecified gestational age Ordered: 04/21/2024 [facility] Comment on above: Ordered: 04/21/2024 Hepatitis C virus Ab [Presence] in Serum or Plasma by Immunoassay Hepatitis C antibody Lab Routine Missed menses , unspecified gestational age Ordered: 04/21/2024 [facility] Comment on above: Ordered: 04/21/2024 HIV-1/HIV-2 antigen/antibody combination immunoassay HIV-1 and HIV-2 antibodies Lab Routine Missed menses , unspecified gestational age Ordered: 04/21/2024 [facility] Comment on above: Ordered: 04/21/2024 IGP,rfxAptima HPV all,16/18,45 IGP,rfxAptima HPV all,16/18,45 Pathology and Cytology Routine Screening for malignant neoplasm of cervix Ordered: 02/15/2024 [facility] Work Phone: Comment on above: Ordered: 02/15/2024 Reagin Ab [Presence] in Serum by RPR RPR Lab Routine Missed menses , unspecified gestational age Ordered: 04/21/2024 [facility] Comment on above: Ordered: 04/21/2024 RF Uterus and Fallop twin tubes Views W contrast IU XR HYSTEROSALPINGOGRAM Radiology Routine Fertility testing 07/29/2023 2:03 PM EDT [facility] Work Phone: Rubella antibody, IgG Rubella an tibody, IgG Lab Routine Missed menses , unspecified gestational age Ordered: 04/21/2024 [facility] Comment on above: Ordered: 04/21/2024 End: 09-12-2025 Urine protein creatinine ratio Urine protein creatinine ratio Lab Routine Gestational diabetes requiring insulin Elevated blood pressure affecting , antepartum 1 Occurrences starting 09/12/2024 until 09/12/2025 [facility] Comment on above: 1 Occurrences starting 09/12/2024 until 09/12/2025 End: 03-01-2025 US for US OB follow up transabdominal approach Imaging Routine Gestational diabetes mellitus (GDM), antepartum, gestational diabetes method of control unspecified [id number] for 8 Occurrences starting 08/30/2024 until 03/01/2025 [facility] Work Phone: Comment on above: [id number] for 8 Occurrences starting 08/30 until 03/01/2025 US Heart Transthoracic [facility] US Pelvis transvaginal US OB tra nsvaginal Imaging Routine Missed menses 04/21/2024 8:47 AM EST [facility] Immunizations Immunization Date Immunization Notes Care Provider Fa [facility] 05-04-2023 measles, mumps and rubella virus vaccine Robles Goldsmith DO Work Phone: [facility] 06-26-2022 tetanus toxoid, reduced diphtheria toxoid, and acellular pertussis vaccine, adsorbed Josefina Eliza Other [employer] Other 08-12-2015 Human Papillomavirus 9-valent vaccine Robles Goldsmith DO Work Phone: [facility] 04-10-2015 Human Papillomavirus 9-valent vaccine Robles Goldsmith DO Work Phone: [facility] 01-30-2015 influenza, seasonal, injectable, preservative free Robles Goldsmith DO Work Phone: [facility] 01-30-2015 influenza virus vaccine, unspecified formulation Fede Hairston MD Work Phone: [facility] 12-05-2014 Human Papillomavirus 9-valent vaccine Robles Goldsmith DO Work Phone: [facility] 02-13-2009 novel [id number], preservative-free, injectable Robles Goldsmith DO Work Phone: [facility] 08-12-2006 meningococcal polysaccharide (groups A, C, Y and W-135) diphtheria toxoid conjugate vaccine (MCV4P) Robles Goldsmith DO Work Phone: [facility] 08-10-2000 diphtheria, tetanus toxoids and acellular pertussis vaccine, unspecified formulation Robles Goldsmith DO Work Phone: [facility] 08-10-2000 measles, mumps and rubella virus vaccine Robles Goldsmith DO Work Phone: [facility] 08-10-2000 poliovirus vaccine, inactivated Robles Rupal DO Work Phone: [facility] 08-04-1996 diphtheria, tetanus toxoids and acellular pertussis vaccine, unspecified formulation Robles Goldsmith DO Work Phone: [facility] 08-04-1996 haemophilus influenzae type b vaccine, conjugate unspecified formulation Robles Goldsmith DO Work Phone: [facility] 08-04-1996 varicella virus vaccine Robles Goldsmith DO Work Phone: [facility] 04-21-1996 measles, mumps and rubella virus vaccine Robles Goldsmith DO Work Phone: [facility] 03-17-1996 diphtheria, tetanus toxoids and acellular pertussis vaccine, unspecified formulation Robles Goldsmith DO Work Phone: [facility] 03-17-1996 haemophilus influenzae type b vaccine, conjugate unspecified formulation Robles Goldsmith DO Work Phone: [facility] 03-17-1996 hepatitis B vaccine, pediatric or pediatric/adolescent dosage Robles Goldsmith DO Work Phone: [facility] 03-17-1996 trivalent poliovirus vaccine, live, oral Robles Goldsmith DO Work Phone: [facility] 1995 diphtheria, tetanus toxoids and pertussis vaccine Robles Goldsmith DO Work Phone: [facility] 1995 haemophilus influenzae type b vaccine, conjugate unspecified formulation Robles Goldsmith DO Work Phone: [facility] 1995 hepatitis B vaccine, pediatric or pediatric/adolescent dosage Robles Goldsmith DO Work Phone: [facility] 1995 trivalent poliovirus vaccine, live, oral Robles Goldsmith DO Work Phone: [facility] 1995 diphtheria, tetanus toxoids and pertussis vaccine Robles Goldsmith DO Work Phone: [facility] 1995 haemophilus influenzae type b vaccine, conjugate unspecified formulation Robles Goldsmith DO Work Phone: [facility] 1995 hepatitis B vaccine, pediatric or pediatric/adolescent dosage Robles Goldsmith DO Work Phone: [facility] 1995 trivalent poliovirus vaccine, live, oral Robles Goldsmith DO Work Phone: [facility] Payers Date Payer Category Payer Commercial Managed Care - POS [id number] .[id number] 2024 Commercial Managed Care - [facility] 1.2.840.979512.1.13.424.2 .[id number] 2024 Private Health Insurance [id number] 2024 Unknown [id number] 2021 Private Health Insurance [id number] .7.3.070283.315 2021 Managed Care (Private) [employer] 1.2.840.133153.1.13.647.2 .[id number] 2021 Managed Care HMO (unspecified) 1.2.840.598149.1.13.693.2 .7.9.180881.100258.315 2021 Private Health Insurance [id number] 2.16.840.1.132819.19 1995 Unknown [id number] 2.16.840.1.715853.3.579.2 .593 1995 Unknown [id number] 2.16.840.1.392146.3.579.2 .1243 1995 Unknown [id number] 2.16.840.1.595688.3.579.2 .1244 1995 Unknown [id number] 2.16.840.1.713889.3.579.2 .1259 1995 Unknown [id number] 2.16.840.1.224247.3.579.2 .1259 1995 Unknown [id number] 2.16.840.1.137861.3.579.2 .1259 1995 Unknown [id number] 2.16.840.1.378885.3.579.2 .1259 1995 Unknown [id number] 2.16.840.1.791436.3.579.2 .9 1995 Unknown [id number] 2.16.840.1.625015.3.579.2 .1259 1995 Unknown [id number] 2.16.840.1.636462.3.579.2 .1258 1995 Unknown [id number] 2.16.840.1.801290.3.579.2 .1258 1995 Unknown [id number] 2.16.840.1.706838.3.579.2 .1258 1995 Unknown [id number] 2.16.840.1.026299.3.579.2 .1258 1995 Unknown [id number] 2.16.840.1.751599.3.579.2 .1258 1995 Unknown [id number] 2.16.840.1.831392.3.579.2 .1258 1995 Unknown [id number] 2.16.840.1.484287.3.579.2 .1258 1995 Unknown [id number] 2.16.840.1.893032.3.579.2 .1258 1995 Unknown [id number] 2.16.840.1.258593.3.579.2 .1258 1995 Unknown [id number] 2.16.840.1.704457.3.579.2 .1258 1995 Unknown [id number] 2.16.840.1.842008.3.579.2 .1258 1995 Unknown [id number] 2.16.840.1.403422.3.579.2 .1258 1995 Unknown [id number] 2.16.840.1.570869.3.579.2 .1258 1995 Unknown [id number] 2.16.840.1.175447.3.579.2 .1258 1995 Unknown [id number] 2.16.840.1.745302.3.579.2 .1258 1995 Unknown [id number] 2.16.840.1.571939.3.579.2 .1258 1995 Unknown [id number] 2.16.840.1.612493.3.579.2 .1286 1995 Unknown [id number] 2.16.840.1.663568.3.579.2 .1286 1995 Unknown [id number] 2.16.840.1.571090.3.579.2 .1286 1995 Unknown [id number] 2.16.840.1.865185.3.579.2 .1286 1995 Unknown [id number] 2.16.840.1.980821.3.579.2 .1286 1959 Self-pay Unknown MMO [id number] Unknown HCAP/HFA/FAP Active [id number] Unknown [id number] 2.16.840.1.563969.3.579.2 .531 Unknown [id number] 2.16.840.1.537817.3.579.2 .531 Unknown [id number] 2.16.840.1.928274.3.579.2 .531 Social History Date Type Detail Facility Unknown if ever smoked [facility] Other Start: 01-04-2023 End: 07-18-2024 Sex Assigned At [employer] Other Start: 10-05-2022 End: 12-29-2022 Tobacco smoking status NHIS Never smoked tobacco [facility] Start: 10-05-2022 End: 12-29-2022 Tobacco use and exposure Smokeless tobacco non-user [facility] Start: 01-04-2023 End: 09-05-2024 Alcohol intake Current drinker of alcohol (finding) [facility] Start: 01-04-2023 End: 07-18-2024 History of Social function [facility] Start: 12-29-2022 Alcohol Comment rare, socially [facility] Start: 1995 Sex Assigned At Female [facility] Start: 01-04-2023 Gender identity Identifies as female gender (finding) [facility] National Score (1-100), lower number is lower risk 64 [facility] Start: 02-15-2024 End: 10-11-2024 Alcoholic beverage intake Ex-drinker (finding) [facility] How often to you hav e a drink containing alcohol? Never [facility] Start: 07-13-2023 Alcohol Comment Caffeine intak e: 1 cup per day coffee [facility] Start: 1995 Sex assigned at Not on file [facility] Start: 02-27-2024 End: 03-08-2024 Exposure to SARS-CoV-2 (event) Not sure [facility] Start: 03-27-2024 Alcohol Comment Caffeine intak e:less than 100 mg daily [facility] Start: 02-27-2024 [facility] Start: 05-23-2024 End: 07-18-2024 Alcoholic beverage intake Lifetime non-drinker (finding) [facility] Start: 08-25-2024 End: 08-29-2024 Sex Female (finding) [facility] Medical Equipment Procedure Code Equipment Code Equipment Origin al Text Equipment Identifier Dates To be used to in ject HCG trigger [id number] Start: 02-17-2024 End: 03-17-2024 To be used to mi x, draw up and inject HCG trigger [id number] Start: 02-17-2024 End: 03-17-2024 1 strip by In Vi tro route Daily Use in the morning prior to breakfast, 1 hour after each meal for a total of 4times daily. [id number] Start: 08-25-2024 End: 09-24-2024 1 each by In Vit ro route Daily Use to check FSBS four times daily [id number] Start: 08-25-2024 End: 09-24-2024 Goals Date Patient Goal Desired Activity /State Personal health goal Functional Status Date Assessment Result Facility 07-18-2024 Patient Health Quest ionnaire 2 item (PHQ-2) [Reported] [facility] Clinical Notes 03-29-2020 to 10-23-2024 Flip Ashley LPN - 10/23/2024 1:30 PM EDT Note Date & Type Note Facility 10-23-2024 History of Presen t illness Narrative Reason for Appointment: Patient ID: Thao Rivas [...] cream Topical, Daily Blood Glucose Monitoring Suppl (D-Yesware Glucometer) w/Device kit 1 kit, Does not [...] nursing note reviewed. Exam conducted with a manager behavior present. Vitals: Estimated body mass index is 40.39 kg/m as calculated from the following: Height as of 07/18/24: 5' 3 . Weight as of this encounter: 228 lb. BP: 136/90 Patient's last menstrual period was 02/13/2024 (approximate). ASSESSMENT & PLAN (Z34.93) Third trimester ([facility] Plan: POCT urinalysis dipstick manually resulted, CULTURE, GROUP B STREP WITH SUSCEPTIBLITY, CULTURE, GROUP B STREP WITH SUSCEPTIBLITY (Z3A.36) 36 weeks gestation of ([facility]) Plan: Creatinine, Protein, urine, 24 hour, Pt and ptt, CBC and differential, Uric acid, Lactate dehydrogenase, ALT, AST, BUN, Creatinine, Protein, urine, 24 hour, Pt and ptt, CBC and differential, Uric acid, Lactate dehydrogenase, ALT, AST, BUN (O13.9) induced hypertension, antepartum ([facility]) Plan: Creatinine, Protein, urine, 24 hour, Pt and ptt, CBC and differential, Uric acid, Lactate dehydrogenase, ALT, AST, BUN, Creatinine, Protein, urine, 24 hour, Pt and ptt, CBC and differential, Uric acid, Lactate dehydrogenase, ALT, AST, BUN Patient presents today for a routine obstetrics appointment. Patient is currently 36w1d with a Estimated Date of Delivery: 11/19/24. Discussed with patient call from Specialist at [facility]. Patient is to deliver at [facility] due to recent cardiac workup. Patient will continue NST/BPP's locally and will delivery with [facility]. Nursing will reach out to [facility] and work on transfer with Women Nurse. Patient to return to clinic for 6 week post appointment. Patient did voice that she is not currently on any Beta Blockers & and not been prescribed any cardiac medication at this time. Documented by Flip Ashley LPN on behalf of: Saravanan Ahumada DO documented in this encounter [facility] 10-18-2024 Evaluation note Authored October 18, 2024 3:00pm Impression: This is a health y 29-year-old white female with low baseline CHD risk profile who is now shown an episode of NSVT on Zio patch monitoring. Echocardiogram done prior to the episode recorded on Zio patch shows normal resting left ventricular regional wall motion and systolic function with ejection fraction 55 to 60%. Patient is experiencing some symptoms and would at this point be classified near her Association functional class Ib. This would appear physiologically appropriate for her current stage of now less than 3 weeks from term. However I do think it is important to exclude the possibility that a induced cardiomyopathy has developed since echocardiogram was checked on August 24. In terms of potential medical treatment for the NSVT at this late point in beta-blockers would be considered first-line therapy and are considered safe for the fetus. I had an extensive discussion today with Keren about the risks and benefits of initiating beta-blockade prior to her induction. She wishes to discuss this therapeutic option with her RETAIL PLANNING MANAGER who she is due to to visit with early next week. Recommendations: 1. Stat echocardiogram to ensure no significant drop in left ventricular systolic function since most recent echocardiogram done on August 24 2. Will provide Emilee prescription for propranolol 40 mg twice daily that she could start if she chooses to after consultation with her RETAIL PLANNING MANAGER. This could be continued through term and we will plan on discontinuing such shortly after she delivers. 3. If Emilee and her OB's decision is against initiating oral beta-blockade prior to induction, IV beta-tamiko (IV metoprolol) could safely be used in the peripartum period if significant ventricular tach arrhythmias are noted. Thank you very much for this kind consultation nephrotomy to participate in the care of this delightful patient. [facility] Work Phone: 1(778) 220-117107-22-2025 Miscellaneous Notes* Telephone Encounter - MUNIRA Torres - 10/17/2024 1:37 PM EDT Called regarding Dexcom Clarity report from 10/10/2024-10/16/2024. Dr. Corona reviewed your blood sugars and does not want to make any changes in your Lantus at this time. Lissa verbalized understanding. documented in this encounter[facility] Telephone encounter Note* Telephone Encounter - MUNIRA Torres - 10/17/2024 1:37 PM EDT Called regarding Dexcom Clarity report from 10/10/2024-10/16/2024. Dr. Corona reviewed your blood sugars and does not want to make any changes in your Lantus at this time. Lissa verbalized understanding. [facility] Work Phone: 1(219) 740-138607-21-2025 History of Present illness Narrative* Selina Denson NP - 10/16/2024 9:00 AM [...] nursing note reviewed. Exam conducted with a manager behavior present. Vitals: Estimated body mass index is 40.61 kg/m as calculated from the following: Height as of 07/18/24: 5' 3 . Weight as of this encounter: 229 lb 4 oz. BP: 120/86 Patient's last menstrual period was 02/13/2024 (approximate). ASSESSMENT & PLAN ICD-10-CM 1. Third trimester ([facility]) Z34.93 POCT urinalysis dipstick manually resulted 2. 35 weeks gestation of ([facility]) Z3A.35 Return OB: Patient presents today for [...] edema. She continues to follow closely with MFM and transmits glucose weekly. [facility] recommends pre-eclampsia labs every 2 weeks and those were given to Mary today. The recommendation was to considered planned delivery at 37 weeks. Continue NST/BPP. Documented by Selina Denson NP on behalf of: Selina Denson NP documented in this encounterPershing Memorial [id number] History of Present illness Narrative* Ortega Tatum CMA - 10/11/2024 2:00 PM EDT [...] chest pain. +FM. She is beingfollowed at [facility] due to GDMA2. States she is [...] 2 units., Disp: 15 mL, Rfl: 2 [id number]-mcsi-lqfzn acid ( 19) 29 mg iron- 1 mg tablet,chewable, Chew 1 tablet and swallow in the morning., Disp: , Rfl: LABS: No results found for: GLUF , MICROALBUR , LDLCALC , CREATININE No results found for: TSH , T3 , TOTALT4 , THYROIDAB No results found for: [id number] No results found for: CREATININE , BUN [...] rate present 157. Gravid abdomen, Alert & Oriented.Respirations not labored. DISCUSSION: Glucose control ideal Recommended [...] by e-mail to: or by fax to: [phone] TIME OF CONSULTATION: 30 minutes with the patient, >50% in discussion and counseling, coordination of care which was [id number]-cfvk, review of records and communication back to referring provider. CARLOS Ford 10/11/24 6244 documented in this encounterMetroHealth [facility]07-14-2025 History of Present illness Narrative* Flip Ashley LPN - 10/09/2024 9:00 AM EDT Reason for [...] cream Topical, Daily Blood Glucose Monitoring Suppl (D-Yesware Glucometer) w/Device kit 1 kit, Does not [...] nursing note reviewed. Exam conducted with a manager behavior present. Vitals: Estimated body mass index is 40.3 kg/m as calculated from the following: Height as of 07/18/24: 5' 3 . Weight as of this encounter: 227 lb 8 oz. BP: 136/86 Patient's last menstrual period was 02/13/2024 (approximate). ASSESSMENT & PLAN ICD-10-CM 1. Third trimester ([facility]) Z34.93 POCT urinalysis dipstick manually resulted 2. 34 weeks gestation of ([facility]) Z3A.34 3. 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 Insulin controlled gestational diabetes mellitus (GDM) during , antepartum ([facility]) O24.414 Patient presents today for a routine obstetrics appointment. Patient is currently 34w1d with a Estimated Date of Delivery: 11/19/24. Patient believes she may have an ingrown hair on left labia. Pelvic exam revealed hemorrhoid. Ingrown hair has already popped and expelled. Patient to return to clinic in 2 weeks for GBS and routine OB appointment. Discussed BPP and results. Documented by Flip Ashley LPN on behalf of: Saravanan Ahumada DO documented in this encounterPershing Memorial [id number] History of Present illness Narrative* Selina Denson NP - 10/02/2024 11:00 AM [...] nursing note reviewed. Exam conducted with a manager behavior present. Vitals: Estimated body mass index is 40.1 kg/m as calculated from the following: Height as of 07/18/24: 5' 3 . Weight as of this encounter: 226 lb 6.4 oz. BP: 136/84 Patient's last menstrual period was 02/13/2024 (approximate). ASSESSMENT & PLAN ICD-10-CM 1. 33 weeks gestation of ([facility]) Z3A.33 POCT urinalysis dipstick manually resulted 2. Encounter for routine care ([facility]) Z34.90 POCT urinalysis dipstick manually resulted 3. Third trimester ([facility]) Z34.93 POCT urinalysis dipstick manually resulted Return [...] Lantus and glucose is being transmitted to [facility]. Continue NST/BPP. Recent epistaxis and discontinued Valtrex and changed to acyclovir. Documented by Selina Denson NP on behalf of: Saravanan Ahumada DO documented in this encounterPershing Memorial [id number] History of Present illness Narrative* Paula Rivera LPN - 09/25/2024 1:00 PM EDT Reason for [...] cream Topical, Daily Blood Glucose Monitoring Suppl ([employer] Glucometer) w/Device kit 1 kit, Does not [...] nursing note reviewed. Exam conducted with a manager behavior present. Vitals: Estimated body mass index is 39.95 kg/m as calculated from the following: Height as of 07/18/24: 5' 3 . Weight as of this encounter: 225 lb 8 oz. BP: 130/80 Patient's last menstrual period was 02/13/2024 (approximate). ASSESSMENT & PLAN ICD-10-CM 1. Third trimester ([facility]) Z34.93 POCT urinalysis dipstick manually resulted 2. Insulin controlled gestational diabetes mellitus (GDM) during , antepartum ([facility]) O24.414 3. 32 weeks gestation of ([facility]) Z3A.32 Return OB: Patient presents today [...] of: Saravanan Ahumada DO documented in this encounterPershing Memorial [id number] History of Present illness Narrative* Alton Rebolledo, DEBBIE[employer]AN PROCESS DEPLOYMENT CONSULTANT - 09/20/2024 11:00 AM EDT REASON FOR OFFICE VISIT: Video Visit via Real-time Synchronous Audiovisual Provider [facility] [address] [address] Patient Location: Patient's home Video [...] that there are some limitations compared to klsy-hw-yqam evaluations. The patient consented to the presence [...] chest pain. +FM. She is beingfollowed at [facility] due to GDMA2. States she is [...] taking: Reported on 09/12/2024), Disp: , Rfl: [id number]-jgxsh acid ( 19) 29 mg iron- 1 [...] TOTALT4 , THYROIDAB No results found for: [id number] No results found for: CREATININE , BUN [...] by e-mail to: or by fax to: [phone] TIME OF CONSULTATION: 20 minutes with the patient, >50% in discussion and counseling, coordination of care which was fynh-zh-vydz, review of records and communication back to referring provider. CARLOS Ford 09/20/24 1121 documented in this encounterMetroHealth [facility]06-18-2025 History of Present illness Narrative* Selina Denson, DEXTER - 09/13/2024 11:30 AM EDT Reason for [...] cream Topical, Daily Blood Glucose Monitoring Suppl (D-Yesware Glucometer) w/Device kit 1 kit, Does not [...] Procedure Laterality Date EYE SURGERY 03/2020 APRIL Lua REVIEW OF SYSTEMS Review of Systems: Review of Systems OBJECTIVE Objective: OBGyn Exam Vitals: Estimated body mass index is 39.59 kg/m as calculated from the following: Height as of 07/18/24: 5' 3 . Weight as of this encounter: 223 lb 8 oz. BP: 126/82 Patient's last menstrual period was 02/13/2024 (approximate). ASSESSMENT & PLAN ICD-10-CM 1. Third trimester ([facility]) Z34.93 POCT urinalysis dipstick manually resulted 2. 31 weeks gestation of ([facility]) Z3A.31 Return OB: Patient presents today [...] pm and glucose will be monitored per [facility] Documented by Selina Denson NP on behalf of: Saravanan Ahumada DO documented in this encounterPershing Memorial [id number] History of Present illness Narrative* Ruthann Poe PA-C - 09/12/2024 4:03 PM EDT Called and spoke with patient - she had the recommended pre-e labs done at [facility]. Patient had mild range BP then [...] triage near her. She will go to [facility]. I called and spoke with RN in triage - informed that patient had CMP and CBC already drawn, but that urine sample was not taken. Recommend BP monitoring and evaluation of pre-e labs. Contact stated they would inform Dr Ahumada upon arrival of patient to hospital. Ruthann Poe PA-C 09/12/24 1608 documented in this encounterMetroHealth [facility]06-17-2025 History of Present illness Narrative* Ruthann Poe PA-C - 09/12/2024 10:00 AM EDT Maternal- [...] mouth in the morning., Disp: , Rfl: [id number]-ukhj-uluvc acid ( 19) 29 mg iron- 1 [...] to offspring from poor maternal glycemic control includ e: obesity, cardiovascular disease, impaired glucose tolerance and [...] more likely to fail compared to insulin. prison data on children whose mothers took oral [...] of hypoglycemia, and examples of treatment ofhypoglycemia (15/15 rule). Discussed her current diet and [...] Delivery recommendations : - Recommend delivery at [id number] - Use 1/2 dose of insulin the [...] by e-mail to: or by fax to: [phone] Ruthann Poe PA-C Maternal- Medicine Office phone: [phone] Ruthann Poe PA-C 09/12/24 1211 * Ortega Tatum CMA - 09/12/2024 10:00 AM EDT [...] with questions or concerns. documented in this encounterMetroHealth [facility]06-16-2025 Instructions* Patient Instructions* Mirta Gallagher MD - 09/11/2024 9:21 AM [...] pending, and I will contact you via Imaginatikt once the results are available. - Your [...] Please continue to follow up with your RETAIL PLANNING MANAGER and the diabetes care team for management. [...] your urine based on recent tests. Your RETAIL PLANNING MANAGER will likely repeat a urine test at your next visit in 4 weeks. - Your hemoglobin, hematocrit, and red blood cell count were low on recent testing. Please follow up with your RETAIL PLANNING MANAGER for further evaluation and management. Follow-Up Plan: - Please continue to follow up with your RETAIL PLANNING MANAGER for routine care and gestational diabetes management. - Once your plasma metanephrines results are available, I will contact you via Quench. - After your delivery, please message me to schedule imaging and blood work for follow-up on your SDHA mutation. If your blood work is normal, imaging can be deferred until 2025 or 2026. Wishing you a safe and healthy ! documented in this encounterCommunity [facility] Center06-16-2025 NoteHNO ID: [id number] Author: MIRTA GALLAGHER MD Service: ? Author Type: Physician Type: Progress Notes Filed: 09/11/2024 09:23 Note Text: DATE: 09/11/2024 VIRTUAL VISIT PROGRESS NOTE This is a virtual visit using Quench Zoom Video Visit. It required patient-provider interaction for the medical decision making as documented below. I have communicated my name and active licensure. The patient's identity and physical location were verified at the time of this visit. Either the patient or their legal rental representative has been informed of the risks and benefits of -- and alternatives to -- treatment through a remote evaluation and consents to proceed with the evaluation remotely. Lissa Rivas is a 29 year old female seen for SDHA mutation. GREARD: 08/17/2023 with me for the same. 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 Thao is currently 28 weeks with a male fetus and has been diagnosed with gestational diabetes mellitus (GDM) approximately 1-2 weeks ago. She is under the care of her RETAIL PLANNING MANAGER in [place] for GDM management. Despite dietary modifications, she [...] No Headaches: No Memory (more content not included)...[facility]06-16-2025 History of Present illness Narrative* Mirta Gallagher MD - 09/11/2024 8:59 AM EDT DATE: 09/11/2024 VIRTUAL VISIT PROGRESS NOTE This is a virtual visit using Quench Zoom Video Visit. It required patient- provider interaction for the medical decision making as documented below. I have communicated my name and active licensure. The patient's identity and physical location wereverified at the time of this visit. Either the patient or their legal rental representative has been informed of the risks [...] She is under the care of her RETAIL PLANNING MANAGER in [place] for GDM management. Despite dietary modifications, she [...] under the care of a specialist in [place] and is no longer taking Metformin since [...] the specialist weekly. - Follow up with RETAIL PLANNING MANAGER for regular care and monitoring of GDM. TSH was 2.69 prior to conception but TPO Ab were negative. Mirta Gallagher MD, MPH Endocrinology documented in this encounterCommunity [facility] Center06-10-2025 Miscellaneous Notes* Telephone Encounter - Aranza Beltran RN - [...] insulin and not metformin. documented in this encounterMetroHealth [facility]06-10-2025 Telephone encounter Note* Telephone Encounter - Aranza Beltran RN - [...] will probably do insulin and not metformin. [facility]06-10-2025 NoteHNO ID: [id number] Author: МАРИЯ LABOY MD Service: ? Author [...] Rivas DATE: September 19, 2024 TIME: 3:28 [facility]06-10-2025 History of Present illness Narrative* Мария Laboy MD - 09/05/2024 1:47 PM EDT History ID: Patient with a history of [...] false vocal folds are normal in appearance permirror exam. Neck: * Neck: The neck appears [...] 2024 TIME: 3:28 PM documented in this encounterCommunity Regional Medical Center06-05-2025 Group counseling note* Group Note - MUNIRA Torres - 08/31/2024 [...] day food log and blood glucoses to [email or web address] every Wednesday night/Wednesday morning. Please refer to health habits for other goals. Breakfast 10 AM 15-25 grams of CHO, Lunch 2 PM 45 grams of CHO, Snack 4:30 PM 15-30 grams of CHO, Dinner 7 PM 45 grams of CHO, HS Snack 8:30 PM 15-30 grams of CHO. Face to face time was 82 minutes. [facility] Work Phone: 1(659) 316-383106-05-2025 Miscellaneous Notes* Group Note - MUNIRA Torres - 08/31/2024 [...] day food log and blood glucoses to [email or web address] every Wednesday night/Wednesday morning. Please refer to health habits for other goals. Breakfast 10 AM 15-25 grams of CHO, Lunch 2 PM 45 grams of CHO, Snack 4:30 PM 15-30 grams of CHO, Dinner 7 PM 45 grams of CHO, HS Snack 8:30 PM 15-30 grams of CHO. Face to face time was 82 minutes. documented in this encounterMetroHealth [facility]06-04-2025 History of Present illness Narrative* Flip Spitler, CAR UNLOADER HELPER - 08/30/2024 11:20 AM EDT Reason for [...] cream Topical, Daily Blood Glucose Monitoring Suppl (Kimeltu Glucometer) w/Device kit 1 kit, Does not [...] nursing note reviewed. Exam conducted with a manager behavior present. Vitals: Estimated body mass index is [...] of: Saravanan Ahumada DO documented in this encounterPershing Memorial [id number] History of Present illness Narrative* FLACA Kovacs - 08/16/2024 8:30 AM EDT [...] nursing note reviewed. Exam conducted with a manager behavior present. 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 Metformin, previously prescribed for polycystic ovary syndrome (PCOS), has been discontinued. Flonase has not been used recently. vitamins and vitamin D supplements are being taken, along with AmLactin cream. Constipation is reported more frequently than usual, but Colace has not yet been used as a treatment. Palpitations are described as a sensation of the heart slowing down and pounding, occurring severaltimes since the onset of . A blood pressure machine is available at home but has only beenused once. No associated dizziness or lightheadedness is [...] Dr. Velazquez but was not completed. Clarification isneeded on whether to proceed with the liver [...] since 04/2024. - No previous EKG performed; Petnet monitor will be ordered -order echo. - If heart rate exceeds 120 beats per minute for an extended period, further investigation will be warranted. Patient was seen and examined with Jaime Davies CNP. History was confirmed and verified. Kelly elements of the exam were also completed. Assessment and plan were reviewed and addended as needed. Agree with documentation above. documented in this encounterPershing Memorial [id number] History of Present illness Narrative* Flip Ashley LPN - 07/17/2024 10:40 AM EDT [...] nursing note reviewed. Exam conducted with a manager behavior present. Vitals: Estimated body mass index is [...] during travel. Patient was prescribed medication from deck engine operator and provider will reach out to [...] leaving that lotion that was prescribed by Physical Therapist Clinic Director is safe to use, but not in large doses. PVU documented in this encounterPershing Memorial [id number] History of Present illness Narrative* Andrew Ferrer, DPM - 05/23/2024 4:00 PM EST Images from the original note were not included. Subjective Patient ID: Lissa Rivas is a 29 y.o. 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 Ongoing for quite a while. Has tried OTC products for both issues. ). HPI This is a new patient who presents to clinic with concerns of nail changes right foot as well as bilateral heel fissures. Patient states that she has noticed thickening and discoloration of the righthallux and 5th toenails over the last couple of years that have gotten worse. She has tried zvkl-gpr-khbirsd antifungal treatments without relief. Additionally she has noted pain along the heels withsignificant callus formation and fissures. She has noticed [...] Past Medical History: Diagnosis Date Anxiety Asthma ([facility]) GERD (gastroesophageal reflux disease) HSV (herpes simplex [...] Fifth toenail exhibits 100 percent involvement. Slightly tenderwith manipulation. There is extensive xerotic skin along [...] to move forward with topical antifungal. I d iscussed phenol matricectomy as well but at this point she has not tried any treatment. For the time being I recommend debridement on a regular basis to reduce thickness of the nail which will also improve symptomatology. The nails were debrided in length and thickness today utilizing a nail Nipperand bur salt grinder without incident. She will call us [...] understanding. Andrew Ferrer DPM documented in this encounterPershing Memorial [id number] History of Present illness Narrative* Flip Ashley LPN - 05/22/2024 8:50 AM EST Reason for Appointment: Patient ID: Lissa Rivas [...] nursing note reviewed. Exam conducted with a manager behavior present. Vitals: Estimated body mass index is [...] or undercooked meat, and stay away from [facility]. Patient has been consulted regarding any further do's and don'tsof . Patient voiced understanding and all questions [...] of: Saravanan Ahumada DO documented in this encounterPershing Memorial [id number] History of Present illness Narrative* Rosemary Hooper MA - 05/15/2024 1:30 PM EST Reason for Appointment: Patient ID: Lissa Rivas [...] nursing note reviewed. Exam conducted with a manager behavior present. Vitals: Estimated body mass index is [...] by Rosemary Hooper MA documented in this encounterPershing Memorial [id number] History of Present illness Narrative* Rosemary Hooper MA - 04/21/2024 9:00 AM EST Reason for Appointment: Patient ID: Lissa Rivas [...] Laterality Date EYE SURGERY 03/2020 MICHAEL- Sid No Known Allergies Vitals: Estimated body [...] drink 6-8 glasses of water a day, eatno raw or undercooked meat, and stay away from [facility]. Patient has also been advised to not change litter boxes and eat 6 small meals a day. Patient has been consulted regarding the do's and don'ts ofpregnancy. Patient was given labs and all questions [...] by: Rosemary Hooper MA documented in this encounterPershing Memorial [id number] NoteHNO ID: [id number] Author: ORTEGA MORRISSEY APRN.LEAN PROCESS DEPLOYMENT CONSULTANT Service: ? Author Type: Nurse Practitioner Type: Progress Notes Filed: 2024 16:38 Note Text: Lissa Iannsusannah here today for a scan. This is [...] to OB Ortega Morrissey APRN.CNP 2024 4:34 [facility]CDun[facility] History of Present illness Narrative* Ortega Morrissey APRN.CNP - 2024 4:34 PM EST Lissa Rivas here today for a scan. [...] APRN.CNP 2024 4:34 PM documented in this encounterCommunity [facility] Center12-30-2024 History of Present illness Narrative* Cindy Dailey RN - 03/27/2024 2:30 PM EST Name: Lissa Rivas Date/Time of Service:03/27/2024 3:01 [...] drawn today. Appointments scheduled for OBUS in [place] office on 04/12 and with [facility] on 05/01. 03/27/2024 3:01 PM documented in this encounterPershing Memorial [id number] Progress note* Fede Hairston MD - 03/20/2024 8:23 AM EST Date of Consult: 02/17/2024 Lissa Rivas is a 28 year old female presenting with the following history: HISTORY OF PRESENT ILLNESS: Lissa Rivas is a 28 year old female with Pt is here for follow up. No changes in history. She thinks she might have reaction from Ovidrel. August 18, 2023: Follow up PCOS, anovulatory infertility. S/p 3 cycles of Letrozole, cycle 34-42 days.Normal HSG. Partner had SA - told it [...] used ocp since teenager. Was seen [facility] for PCOS and placed on metformin. She [...] Hysteroscopy Laparoscopy OPK (Ovulation Predictor Kit) Ovarian [place] [facility] 10.91 High 01/04/2023 Saline Ultrasound Semen [...] visit. Either the patient or their legal rental representative has been informed of the risks and benefits of -- and alternatives to -- treatment through a remote evaluation andconsents to proceed with the evaluation remotely. I spent a total of 30 minutes on the date of the service which included preparing to see the patient, yxyw-xe-dfyv patient care, counseling and educating the patient/family/caregiver, ordering medications, tests, or procedures, communicating results to the patient/family/caregiver, and care coordination (not separately reported). MD Kim Branch MD [facility]12-23-2024 Consult note* Fede Hairston MD - 03/20/2024 8:23 AM EST Date of Consult: 02/17/2024 Lissa Rivas is a 28 year old female presenting with the following history: HISTORY OF PRESENT ILLNESS: Lissa Rivas is a 28 year old female with Pt is here for follow up. No changes in history. She thinks she might have reaction from Ovidrel. August 18, 2023: Follow up PCOS, anovulatory infertility. S/p 3 cycles of Letrozole, cycle 34-42 days.Normal HSG. Partner had SA - told it [...] Hysteroscopy Laparoscopy OPK (Ovulation Predictor Kit) Ovarian [place] [facility] 10.91 High 01/04/2023 Saline Ultrasound Semen [...] visit. Either the patient or their legal rental representative has been informed of the risks and benefits of -- and alternatives to -- treatment through a remote evaluation andconsents to proceed with the evaluation remotely. I spent a total of 30 minutes on the date of the service which included preparing to see the patient, osov-kv-noyr patient care, counseling and educating the patient/family/caregiver, ordering medications, tests, or procedures, communicating results to the patient/family/caregiver, and care coordination (not separately reported). MD Kim Branch MD documented in this encounterCommunity [facility] Medical Center12-20-2024 NoteHNO ID: [id number] Author: ORTEGA MORRISSEY APRN.LEAN PROCESS DEPLOYMENT CONSULTANT Service: ? Author Type: Nurse Practitioner Type: Progress Notes Filed: 03/17/2024 14:22 Note Text: REPRODUCTIVE ENDOCRINOLOGY AND INFERTILITY New SERVICE DATE: 03/17/2024 SERVICE TIME: 1:56 PM NAME: Lissa Rivas VIRTUAL VISIT PROGRESS NOTE This is a virtual visit. It required patient-provider interaction for the medical decision making as documented below. Patient name and birthday verified: Yes Location of patient: [place] Persons Present: patient I have communicated my name and active licensure. The patient's identity and physical location were verified at the time of this visit. Either the patient or their legal rental representative has been informed of the risks [...] which included preparing to see the patient, fqpd-dh-jjjl patient care, completing clinical documentation, obtaining and/or [...] schedule the patient for the following- Location: [facility] Provider: Nurse Visit type: OB scan Reason for visit/appointment notes: OB scan Date: 04/03 Time (requested): 1110 If slot is full, please schedule the closest open slot. Call to patient needed: [facility]12-20-2024 History of Present illness Narrative* Ortega Morrissey APRN.LEAN PROCESS DEPLOYMENT CONSULTANT - 03/17/2024 1:56 PM EST Images from the original note were not included. REPRODUCTIVE ENDOCRINOLOGY AND INFERTILITY New SERVICE DATE: 03/17/2024 SERVICE TIME: 1:56 PM NAME: Lissa Rivas VIRTUAL VISIT PROGRESS NOTE This is a virtual visit. It required patient-provider interaction for the medical decision making as documented below. Patient name and birthday verified: Yes Location of patient: [place] Persons Present: patient I have communicated my name and active licensure. The patient's identity and physical location wereverified at the time of this visit. Either the patient or their legal rental representative has been informed of the risks and benefits of -- and alternatives to -- treatment through a remote evaluation andconsents to proceed with the evaluation remotely. Reason [...] which included preparing to see the patient, vsfn-wh-ojiw patient care, completing clinical documentation, obtaining and/or reviewing separately obtained history, performing a medically appropriate examination, counseling and educating the pat ient/family/caregiver, ordering medications, tests, or procedures, independently interpreting [...] to patient needed: no documented in this encounterCommunity [facility] Medical Center12-16-2024 Telephone encounter Note * Telephone Encounter - Ortega Morrissey APRN.CNP - 03/13/2024 1:22 PM EST Patient calls with positive urine test. 0 [...] Morrissey APRN.CNP March 13, 2024 1:37 PM [facility]12-16-2024 Miscellaneous Notes* Telephone Encounter - Ortega Morrissey APRN.CNP - 03/13/2024 1:22 PM EST Patient calls with positive urine test. 0 [...] ordered: HCG x2 FYI Dr. Bill Morrissey APRN.LEAN PROCESS DEPLOYMENT CONSULTANT March 13, 2024 1:37 PM * Telephone Encounter - Ayanna Wise - 03/13/2024 11:55 AM EST Patient states she skipped this month and has +hpt, please follow up with patient. documented in this encounterCommunity Regional Medical Center12-16-2024 Telephone encounter Note * Telephone Encounter - Ayanna Wise - 03/13/2024 11:55 AM EST Patient states she skipped this month and has +hpt, please follow up with patient. [facility] Work Phone: [phone] 240-144612-11-2024 History of Present illness Narrative* Gabriel Blackwell DO - 03/08/2024 10:30 AM EST Impression: 1. Otalgia of both ears 2. [...] Use: Not At Risk (02/15/2024) [facility] Frequency of Alcohol Consumption: [...] auditory canal is patent. Tympanic membrane is [intact,translucent and has good mobility with my pneumatic [...] moderately swollen and pale. No evidence of intranasalpolyps. No infectious drainage. Throat: Floor of mouth [...] and 96% in the left ear. Speech reception specialist threshold is 10 dB in the right ear and 5 dB in the left ear. Procedure: [] Gabriel Blackwell DO documented in this encounterMartin Memorial Hospital Work Phone: [phone] 659-352112-02-2024 Telephone encounter Note* Telephone Encounter - Ortega Morrissey APRN.CNP - 02/28/2024 11:47 AM EST Spoke with Thao, Plan to continue with [...] MORRISSEY APRN.CNP February 28, 2024 11:54 AM [facility]12-02-2024 Miscellaneous Notes* Telephone Encounter - Ortega Morrissey APRN.CNP - 02/28/2024 11:47 AM EST Spoke with Thao, Plan to continue with [...] MORRISSEY APRN.CNP February 28, 2024 11:54 AM * Telephone Encounter - Joanna Garces - 02/28/2024 8:22 AM EST Pt is not financially clear yet should she still schedule it after she pays documented in this encounterCommunity [facility] Medical Center12-02-2024 Telephone encounter Note * Telephone Encounter - Joanna Garces - 02/28/2024 8:22 AM EST Pt is not financially clear yet should she still schedule it after she pays [facility]11-27-2024 NoteHNO ID: [id number] Author: ORTEGA MORRISSEY APRN.CNP Service: ? Author [...] closest open slot. Call to patient needed: [facility]11-27-2024 NoteHNO ID: [id number] Author: PAULA HESTER RN Service: ? Author [...] Paula Hester RN February 23, 2024 7:46 [facility]11-27-2024 History of Present illness Narrative* Paula Hester RN - 02/23/2024 7:46 AM EST The patient is here today for follicular ultrasound and blood work. The patient reports no problemsor complaints. Ultrasound and blood will be reviewed by the physician, the flow sheet will be updated and instructions will be communicated to the patient. Paula Hester RN February 23, 2024 7:46 AM documented in this encounterCommunity Regional Medical Center11-25-2024 Telephone encounter Note * Telephone Encounter - Ortega Morrissey APRN.CNP - 02/21/2024 10:38 AM EST Medication send the CS specialty on 02/17. Ortega Morrissey APRN.CNP February 21, 2024 10:39 AM [facility]11-25-2024 Miscellaneous Notes* Telephone Encounter - Ortega Morrissey APRN.CNP - 02/21/2024 10:38 AM EST Medication send the CS specialty on 02/17. Ortega Morrissey APRN.CNP February 21, 2024 10:39 AM * Telephone Encounter - Joanna Garces - 02/21/2024 10:31 AM EST [facility] documented in this encounterCommunity [facility] Medical Center11-25-2024 Telephone encounter Note * Telephone Encounter - Joanna Garces - 02/21/2024 10:31 AM EST [facility]eds [facility]11-21-2024 Plan of care note* GAYATHRI Plan Note - Fede Hairston MD - 02/17/2024 10:05 AM EST Lissa Rivas is a 28 year old [...] visit. Either the patient or their legal rental representative has been informed of the risks and benefits of -- and alternatives to -- treatment through a remote evaluation andconsents to proceed with the evaluation remotely. I spent a total of 30 minutes on the date of the service which included preparing to see the patient, xjur-ly-sarr patient care, counseling and educating the patient/family/caregiver, ordering medications, tests, or procedures, communicating results to the patient/family/caregiver, and care coordination (not separately reported). Kim Khan MD [facility]11-21-2024 Miscellaneous Notes* GAYATHRI Plan Note - Fede Hairston MD - 02/17/2024 10:05 AM EST Lissa Rivas is a 28 year old [...] visit. Either the patient or their legal rental representative has been informed of the risks and benefits of -- and alternatives to -- treatment through a remote evaluation andconsents to proceed with the evaluation remotely. I spent a total of 30 minutes on the date of the service which included preparing to see the patient, npqk-fk-qpkf patient care, counseling and educating the patient/family/caregiver, ordering medications, tests, or procedures, communicating results to the patient/family/caregiver, and care coordination (not separately reported). Kim Khan MD documented in this encounterCommunity Regional Medical Center11-19-2024 History of Present illness Narrative* Adilene Ford MA - 02/15/2024 3:15 PM EST Images from the original note were not included. Robles Goldsmith, DO Obstetrics and Gynecology Lissa Rivas 1995 02/15/24 [id number] Yearly Wellness Exam Chief Complaint Patient presents [...] palpable bilaterally, normal nipples bilaterally - everted - finely cystic - dense- well supported- axilla negative. ABDOMEN: soft, nontender, nondistended, no masses palpable. BACK: no costovertebral angle tenderness, no obvious scoliosis/kyphosis. FEMALE GENITOURINARY: manager behavior in room, good hormone - normal vaginal mucosa - nullip small cervixabsent of lesions - non tender, uterus straight RV smaller nl mobile - ovaries non palpable and nontender - cul-de-sac negative RECTAL:normal tone , no [...] patient is to contact the office with anychanges to her gynecological condition or any changes [...] high sperm count. Plenty of exposures. Just waitingfor . 4. BV (bacterial vaginosis) N76.0 POCT trichomonas manually resulted B96.89 Discussed chronic BV after intercourse, notices odor. Wet mount negative in office. Health track swab sent out. She works from home for [employer]. Entered by Adilene Ford MA acting as scribe for Dr. Robles Goldsmith. Signature Adilene Ford MA Date 02/15/24 . Time 3:12 PM . The documentation recorded by the scribe accurately reflects the service(s) I personally performed and the decisions I made. Signature Jordan Goldsmith D.O. Date 02/15/24 Time 5:00PM. documented in this encounterPershing Memorial [id number] Telephone encounter Note* Telephone Encounter - Ortega Morrissey APRN.CNP - 02/15/2024 12:55 PM EST Spoke with Thao, states she was using [...] open slot. Call to patient needed: no [facility]11-19-2024 Miscellaneous Notes* Telephone Encounter - Ortega Morrissey APRN.CNP - 02/15/2024 12:55 PM EST Spoke with Thao, states she was using [...] open slot. Call to patient needed: no * Telephone Encounter - Ayanna Wise - 02/15/2024 11:36 AM EST Patient states this past month in January she did not ovulate so she did not go through with iui, please follow up with patient. documented in this encounterCommunity Regional Medical Center11-19-2024 Telephone encounter Note * Telephone Encounter - Ayanna Wise - 02/15/2024 11:36 AM EST Patient states this past month in January she did not ovulate so she did not go through with iui, please follow up with patient. [facility] Work Phone: [phone]) 824-119110-18-2024 Telephone encounter Note* Telephone Encounter - Ortega Morrissey APRN.CNP - 01/14/2024 4:15 PM EDT Spoke with Lissa, She is planning to use OPK only this cycle. Jeferson call with LH surge. Ortega Morrissey APRN.CNP January 14, 2024 4:17 PM [facility]10-18-2024 Miscellaneous Notes* Telephone Encounter - Ortega Morrissey APRN.CNP - 01/14/2024 4:15 PM EDT Spoke with Lissa, She is planning to use OPK only this cycle. Jeferson call with LH surge. Ortega Morrissey APRN.CNP January 14, 2024 4:17 PM * Telephone Encounter - Keren Carcamo - 01/14/2024 9:03 AM EDT Pt started cycle 01/12 and would like to discuss plan for scheduling iui documented in this encounterCommunity Regional Medical Center10-18-2024 Telephone encounter Note * Telephone Encounter - Keren Carcamo - 01/14/2024 9:03 AM EDT Pt started cycle 01/12 and would like to discuss plan for scheduling iui [facility]10-04-2024 NoteHNO ID: [id number] Author: ORTEGA MORRISSEY APRN.CNP Service: ? Author [...] Cycle Day: 20 Last menstrual period: 12/12/2023 [place] Protocol: UNIVERSAL PROTOCOL / SAFETY CHECKLIST Procedure [...] Rivas DATE: December 31, 2023 TIME: 10:25 [facility]10-04-2024 Procedure note* Ortega Morrissey APRN.CNP - 12/31/2023 10:25 AM EDT WHI GAYATHRI IUI PROCEDURE NOTE Date: 12/31/2023 Primary Proceduralist: Ortega Morrissey APRN.CNP Consents and Labels Consent Signed: Informed Consent obtained and on the chart Labels Verified With Patient: Yes Indications: Lissa Rivas, is a 28 year old female here today for intrauterine insemination. IUI # Series 1 Cycle 3. Cycle Day: 20 Last menstrual period: 12/12/2023 [place] Protocol: UNIVERSAL PROTOCOL / SAFETY CHECKLIST Procedure [...] Fresh TMC (total motile count of sperm afterwash): 60.2 million Cycle reviewed, all questions answered. Pt instructed to take a test in 17 days if no menses and call with results. SIGNATURE: Ortega Morrissey APRN.CNP PATIENT NAME: Lissa Rivas DATE: December 31, 2023 TIME: 10:25 AM [facility]10-04-2024 Procedure note* Ortega Morrissey APRN.CNP - 12/31/2023 10:25 AM EDT WHI GAYATHRI IUI PROCEDURE NOTE Date: 12/31/2023 Primary Proceduralist: Ortega Morrissey APRN.CNP Consents and Labels Consent Signed: Informed Consent obtained and on the chart Labels Verified With Patient: Yes Indications: Lissa Rivas, is a 28 year old female here today for intrauterine insemination. IUI # Series 1 Cycle 3. Cycle Day: 20 Last menstrual period: 12/12/2023 [place] Protocol: UNIVERSAL PROTOCOL / SAFETY CHECKLIST Procedure [...] Fresh TMC (total motile count of sperm afterwash): 60.2 million Cycle reviewed, all questions answered. Pt instructed to take a test in 17 days if no menses and call with results. SIGNATURE: Ortega Morrissey APRN.CNP PATIENT NAME: Lissa Rivas DATE: December 31, 2023 TIME: 10:25 AM documented in this encounterCommunity Regional Medical Center10-04-2024 Nurse Note* Domenica Coon MA - 12/31/2023 10:07 AM EDT Molder Hand offered: Patient declines. [facility]10-04-2024 Nurse Note* Domenica Coon MA - 12/31/2023 10:07 AM EDT Molder Hand offered: Patient declines. documented in this encounterCommunity Regional Medical Center09-24-2024 History of Present illness Narrative* Robin Grewal RN - 12/21/2023 2:32 PM EDT pt using LH surge strips and will call to [facility] IUI Robin Grewal RN December 21, 2023 2:32 PM * Fede Hairston MD - 12/21/2023 12:37 PM EDT Follicular Ultrasound Monitoring Visit Patient here for follicle monitoring and/or endometrial assessment, via ultrasound, and lab testing. See imaging documentation and GAYATHRI cycle flow sheet for final report and plan. Ultrasound images assessed for follicular growth and maturation as well as endometrial development.Hormone lab values assessed. Treatment plan discussed with Fertility Team and plan provided to patient via a Fertility fast food crew member. Kim Khan MD documented in this encounterCommunity Regional Medical Center09-24-2024 NoteHNO ID: [id number] Author: ROBIN GREWAL RN Service: ? Author Type: Registered Nurse Type: Progress Notes Filed: 12/21/2023 14:32 Note Text: pt using LH surge strips [facility] Robin Grewal RN December 21, 2023 2:32 [facility]09-24-2024 NoteHNO ID: [id number] Author: FEDE HAIRSTON MD Service: ? Author [...] plan provided to patient via a Fertility fast food crew member. [facility] Tele[facility] encounter Note* Telephone Encounter - Ortega Morrissey APRN.CNP - 12/13/2023 4:41 PM EDT LMP 12/11 Plan: Let 5mg, trigger, IUI#2 Flowsheet/episode created Ortega Morrissey APRN.CNP December 13, 2023 4:42 PM Please schedule the patient for the following- Location: [place] Provider: Nurse Visit type: Midcycle Reason for visit/appointment notes: Midcycle Date: 12/20 Time (requested): 730 If slot is full, please schedule the closest open slot. Call to patient needed: no [facility]09-16-2024 Miscellaneous Notes* Telephone Encounter - Ortega Morrissey APRN.CNP - 12/13/2023 4:41 PM EDT LMP 12/11 Plan: Let 5mg, trigger, IUI#2 Flowsheet/episode created Ortega Morrissey APRN.CNP December 13, 2023 4:42 PM Please schedule the patient for the following- Location: [place] Provider: Nurse Visit type: Midcycle Reason for visit/appointment notes: Midcycle Date: 12/20 Time (requested): 730 If slot is full, please schedule the closest open slot. Call to patient needed: no documented in this encounterCommunity [facility]09-01-2024 NoteHNO ID: [id number] Author: EVANGELINA PAINTER, ? Service: ? Author Type: Bulb Packer Type: Progress Notes Filed: 11/28/2023 11:00 Note Text: IUI Pre: 72 M/ml, 63% Post: 73 M/ml, 88% [facility]sem [facility] History of Present illness Narrative* Evangelina Painter - 11/28/2023 10:59 AM EDT IUI Pre: 72 M/ml, 63% Post: 73 M/ml, 88% Insem # 44.8 million * Evangelina Painter - 11/28/2023 10:48 AM EDT IUI specimen released to provider Evangelina Painter November 28, 2023 10:48 AM documented in this encounterCommunity [facility] Center09-01-2024 NoteHNO ID: [id number] Author: DESHAWN RIOJAS MD Service: ? Author Type: Physician Type: Procedures Filed: 11/28/2023 10:54 Note Text: WHI GAYATHRI IUI PROCEDURE NOTE Date: 11/28/2023 Primary Proceduralist: Deshawn Riojas MD, Sandra Cruz MD Consents and Labels Consent Signed: Informed Consent obtained and on the chart Labels Verified With Patient: Yes Indications: Lisas Rivas, is a 28 year old female here today for intrauterine insemination. IUI # . Cycle Day: 13 Last menstrual period: 11/12/2023 [place] Protocol: UNIVERSAL PROTOCOL / SAFETY CHECKLIST Procedure [...] Rivas DATE: November 28, 2023 TIME: 10:52 [facility]09-01-2024 Procedure note* Deshawn Riojas MD - 11/28/2023 10:52 AM EDT WHI GAYATHRI IUI PROCEDURE NOTE Date: 11/28/2023 Primary Proceduralist: Deshawn Riojas MD, Sandra Cruz MD Consents and Labels Consent Signed: Informed Consent obtained and on the chart Labels Verified With Patient: Yes Indications: Lissa Iannello, is a 28 year old female here today for intrauterine insemination. IUI # . Cycle Day: 13 Last menstrual period: 11/12/2023 [place] Protocol: UNIVERSAL PROTOCOL / SAFETY CHECKLIST Procedure [...] DATE: November 28, 2023 TIME: 10:52 AM [facility]09-01-[facility] Procedure note* Deshawn Riojas MD - 11/28/2023 10:52 AM EDT WHI GAYATHRI IUI PROCEDURE NOTE Date: 11/28/2023 Primary Proceduralist: Deshawn Riojas MD, Sandra Cruz MD Consents and Labels Consent Signed: Informed Consent obtained and on the chart Labels Verified With Patient: Yes Indications: Lissa Rivas is a 28 year old female here today for intrauterine insemination. IUI # . Cycle Day: 13 Last menstrual period: 11/12/2023 [place] Protocol: UNIVERSAL PROTOCOL / SAFETY CHECKLIST Procedure [...] 2023 TIME: 10:52 AM documented in this encounterCommunity [facility] Medical Center09-01-2024 NoteHNO ID: [id number] Author: EVANGELINA PAINTER, ? Service: ? Author Type: Bulb Packer Type: Progress Notes Filed: 11/28/2023 10:54 Note Text: IUI specimen released to provider Evangelina Painter November 28, 2023 10:48 [facility]08-26-2024 NoteHNO ID: [id number] Author: ORTEGA MORRISSEY APRN.LEAN PROCESS DEPLOYMENT CONSULTANT Service: ? Author Type: Nurse Practitioner Type: Progress Notes Filed: 11/22/2023 15:00 Note Text: REPRODUCTIVE ENDOCRINOLOGY AND INFERTILITY VIRTUAL VISIT PROGRESS NOTE SERVICE DATE: 11/22/2023 SERVICE TIME: 2:33 PM NAME: Lissa Rivas VIRTUAL VISIT PROGRESS NOTE This is a virtual visit. It required patient-provider interaction for the medical decision making as documented below. Patient name and birthday verified: Yes Location of patient: [place] Persons Present: patient I have communicated my name and active licensure. The patient's identity and physical location were verified at the time of this visit. Either the patient or their legal rental representative has been informed of the risks [...] Once starting progesterone had intense mood swings/irritability [place] heart was beating slower than normal but [...] will schedule IUI as instructed Ortega Morrissey APRN.[employer] PROCESS DEPLOYMENT CONSULTANT November 22, 2023 2:33 PM I spent a total of 20 minutes on the date of the service which included preparing to see the patient, [id number] patient care, completing clinical documentation, obtaining and/or [...] be grammatical and typographical errors missed in proofreading.[facility]08-26-2024 History of Present illness Narrative* Ortega Morrissey APRN.JORDNA - 11/22/2023 2:33 PM EDT Images from the original note were not included. REPRODUCTIVE ENDOCRINOLOGY AND INFERTILITY VIRTUAL VISIT PROGRESS NOTE SERVICE DATE: 11/22/2023 SERVICE TIME: 2:33 PM NAME: Lissa Rivas VIRTUAL VISIT PROGRESS NOTE This is a virtual visit. It required patient-provider interaction for the medical decision making as documented below. Patient name and birthday verified: Yes Location of patient: [place] Persons Present: patient I have communicated my name and active licensure. The patient's identity and physical location wereverified at the time of this visit. Either the patient or their legal rental representative has been informed of the risks and benefits of -- and alternatives to -- treatment through a remote evaluation andconsents to proceed with the evaluation remotely. Reason for visit: Follow up on side effects HPI Lissa took ovidrel 10/23, was unable to sleep that night or the following day 10/24 felt like her hearing was muffled/clogged 10/27 had excessive sneezing Once starting progesterone had intense mood swings/irritability [place] heart was beating slower than normal but hard at the same time This cycle so far has had a mild headache and back pain with letrozole. Supposed to take ovidrel tonight for IUI to follow but is feeling apprehensive about taking ovidrelwith all the previous possible side effects. Diagnoses [...] which included preparing to see the patient, [id number] patient care, completing clinical documentation, obtaining and/or [...] errors missed in proofreading. documented in this encounterCommunity Regional Medical Center08-26-2024 NoteHNO ID: [id number] Author: ERMA DONIS RN Service: ? Author [...] called patient. She will drive back to [place] now to get done. Erma Donis RN [...] Erma Donis RN November 22, 2023 12:53 [facility]08-26-2024 History of Present illness Narrative* Erma Donis RN - 11/22/2023 8:08 AM EDT Lissa Rivas is here today for a midcycle scan. Lead follicle: 21mm vs CL Erma Donis RN November 22, 2023 8:44 AM Message sent to Dr. Howard to see if patient needs labs based on scan. Erma Donis RN November 22, 2023 8:09 AM Labs ordered and called patient. She will drive back to [place] now to get done. Erma Donis RN November 22, 2023 8:45 AM 11/22/2023 11 trigger 25+<10mm 21.2, 25+<10mm 5.6mm tri p4=0.3 lh=5.1 JR 11/23/2023 12 11/24/2023 13 IUI RN called patient, name and verified. Plan given for midcycle per physician, see flowsheet for details. [email or web address] message sent. Medications reviewed and verified, instructions given. Patient deniesany questions or concerns. Erma Donis RN November 22, 2023 12:53 PM documented in this encounterCommunity [facility] Center08-19-2024 Telephone encounter Note * Telephone Encounter - Ortega Morrissey APRN.CNP - 11/15/2023 9:39 AM EDT Plan: Let 5mg/trigger/IUI #2 Ortega Morrissey APRN.CNP November 15, 2023 9:39 AM Please schedule the patient for the following- Location: [place] Provider: Nurse Visit type: Follicular scan Reason for visit/appointment notes: Follicular scan Date: 11/21 Time (requested): 0715 If slot is full, please schedule the closest open slot. Call to patient needed: no [facility]08-19-[facility] Miscellaneous Notes* Telephone Encounter - Ortega Morrissey APRN.CNP - 11/15/2023 9:39 AM EDT Plan: Let 5mg/trigger/IUI #2 Ortega Morrissey APRN.CNP November 15, 2023 9:39 AM Please schedule the patient for the following- Location: [place] Provider: Nurse Visit type: Follicular scan Reason for visit/appointment notes: Follicular scan Date: 11/21 Time (requested): 0715 If slot is full, please schedule the closest open slot. Call to patient needed: no * Telephone Encounter - Madeleine Orta PA-C - 11/12/2023 6:07 PM EDT Patient is planning IUI. FYI: [employer] Mg. Please see the checklist Madeleine Orta PA-C November 12, 2023 6:07 PM * Telephone Encounter - Keren Carcamo - 11/12/2023 1:55 PM EDT Pt had iui 10/25 , pt had negative preg 8/13 or 8/14 , pt started cycle 11/11 documented in this encounterCommunity [facility] Medical Center08-16-2024 Telephone encounter Note * Telephone Encounter - Madeleine Orta PA-C - 11/12/2023 6:07 PM EDT Patient is planning IUI. FYI: [employer] Mg. Please see the checklist Madeleine Orta PA-C November 12, 2023 6:07 PM [facility] Work Phone: 1(225) 731-187508-16-2024 Telephone encounter Note* Telephone Encounter - Keren Carcamo - 11/12/2023 1:55 PM EDT Pt had iui 10/25 , pt had negative preg 8/13 or 8/14 , pt started cycle 11/11 [facility]07-30-2024 Telephone encounter Note* Telephone Encounter - Ortega Morrissey APRN.CNP - 10/26/2023 1:51 PM EDT This patient gave consent to this Medical [...] seven days of my reply. See the Quench message reply for my assessment and plan. I spent a total of 5 minutes reviewing the patient's prior medical records and current request for medical advice, prescribing medications or ordering tests (if applicable), replying to the patient, and documenting the encounter. [facility]07-30-2024 Miscellaneous Notes* Telephone Encounter - Ortega Morrissey APRN.CNP - 10/26/2023 1:51 PM EDT This patient gave consent to this Medical [...] seven days of my reply. See the Quench message reply for my assessment and plan. I spent a total of 5 minutes reviewing the patient's prior medical records and current request for medical advice, prescribing medications or ordering tests (if applicable), replying to the patient, and documenting the encounter. documented in this encounterCommunity Regional Medical Center07-30-2024 NoteHNO ID: [id number] Author: ORTEGA MORRISSEY APRN.CNP Service: ? Author [...] Cycle Day: 15 Last menstrual period: 10/12/2023 [place] Protocol: UNIVERSAL PROTOCOL / SAFETY CHECKLIST Procedure [...] Rivas DATE: October 26, 2023 TIME: 11:36 [facility]07-30-2024 Procedure note* Ortega Morrissey APRN.CNP - 10/26/2023 11:36 AM EDT WHI GAYATHRI IUI PROCEDURE NOTE Date: 10/26/2023 Primary Proceduralist: Ortega Morrissey APRN.CNP Consents and Labels Consent Signed: Informed Consent obtained and on the chart Labels Verified With Patient: Yes Indications: Lissa Rivas, is a 28 year old female here today for intrauterine insemination. IUI # Series 1 Cycle 1. Cycle Day: 15 Last menstrual period: 10/12/2023 [place] Protocol: UNIVERSAL PROTOCOL / SAFETY CHECKLIST Procedure [...] Fresh TMC (total motile count of sperm afterwash): 146.9 million Cycle reviewed, all questions answered. Pt instructed to take a test in 17 days if no menses and call with results. SIGNATURE: Ortega Morrissey APRN.CNP PATIENT NAME: Lissa Rivas DATE: October 26, 2023 TIME: 11:36 AM [facility]07-30-2024 Procedure note* Ortega Morrissey APRN.CNP - 10/26/2023 11:36 AM EDT WHI GAYATHRI IUI PROCEDURE NOTE Date: 10/26/2023 Primary Proceduralist: Ortega Morrissey APRN.CNP Consents and Labels Consent Signed: Informed Consent obtained and on the chart Labels Verified With Patient: Yes Indications: Lissa Rvias, is a 28 year old female here today for intrauterine insemination. IUI # Series 1 Cycle 1. Cycle Day: 15 Last menstrual period: 10/12/2023 [place] Protocol: UNIVERSAL PROTOCOL / SAFETY CHECKLIST Procedure [...] Fresh TMC (total motile count of sperm afterwash): 146.9 million Cycle reviewed, all questions answered. Pt instructed to take a test in 17 days if no menses and call with results. SIGNATURE: Ortega Morrissey APRN.CNP PATIENT NAME: Lissa Rivas DATE: October 26, 2023 TIME: 11:36 AM documented in this encounterCommunity Regional Medical Center07-26-2024 NoteHNO ID: [id number] Author: AYANNA TREVIZO MD Service: ? Author Type: Physician Type: Progress Notes Filed: 10/22/2023 23:02 Note Text: GAYATHRI Attending Physician Note: Ultrasound and lab results reviewed. Based on review of ultrasound and lab results, medication dose and follow up date plans provided. See cycle flowsheet for dosing details. Ayanna Trevizo MD, [facility]07-26-2024 NoteHNO ID: [id number] Author: ERMA DONIS RN Service: ? Author [...] Erma Donis RN October 22, 2023 1:38 [facility]07-26-2024 History of Present illness Narrative* Erma Donis RN - 10/22/2023 7:25 AM EDT Lissa Rivas is here today for a midcycle scan. Lead follicle: 14 Erma Donis RN October 22, 2023 7:25 AM RN called patient, name and verified. Plan given for midcycle per physician, see flowsheet for details. MyChart message sent. Medications reviewed and verified, instructions given. Patient deniesany questions or concerns. Erma Donis RN October 22, 2023 1:38 PM documented in this encounterCommunity [facility] Medical Center07-24-2024 Telephone encounter Note * Telephone Encounter - Ani Stovall APRN.CNP - 10/20/2023 3:10 PM EDT patient instructed to order trigger now so that she has it by Wednesday Ani Stovall APRN.CNP October 20, 2023 3:10 PM [facility]07-24-2024 Miscellaneous Notes* Telephone Encounter - Ani Stovall APRN.CNP - 10/20/2023 3:10 PM EDT patient instructed to order trigger now so that she has it by Wednesday Ani Stovall APRN.CNP October 20, 2023 3:10 PM * Telephone Encounter - Keren Carcamo - 10/20/2023 2:26 PM EDT Pts pharmacy called and would like to know when she needs to order trigger shot documented in this encounterCommunity [facility] Medical Center07-24-2024 Telephone encounter Note * Telephone Encounter - Keren Carcamo - 10/20/2023 2:26 PM EDT Pts pharmacy called and would like to know when she needs to order trigger shot [facility]07-16-2024 Telephone encounter Note* Telephone Encounter - Ortega Morrissey APRN.CNP - 10/12/2023 4:10 PM EDT The following approved medication requests have been transmitted electronically. Requested Prescriptions Signed Prescriptions Disp Refills Choriogonadotropin Pam,HumRec (OVIDREL) 250 mcg/0.5 mL syrg 0.5 mL 1 Sig: Inject 250 mcg subcutaneously one time only for 1 dose. Authorizing Provider: ORTEGA MORRISSEY APRN.CNP October 12, 2023 4:10 PM [facility]07-16-2024 Miscellaneous Notes* Telephone Encounter - Ortega Morrissey APRN.CNP - 10/12/2023 4:10 PM EDT The following approved medication requests have been transmitted electronically. Requested Prescriptions Signed Prescriptions Disp Refills Choriogonadotropin Pam,HumRec (OVIDREL) 250 mcg/0.5 mL syrg 0.5 mL 1 Sig: Inject 250 mcg subcutaneously one time only for 1 dose. Authorizing Provider: ORTEGA MORRISSEY APRN.CNP October 12, 2023 4:10 PM * Telephone Encounter - Randee Myers RN - 10/12/2023 2:28 PM EDT Called the patient she verified her name and date of period started today has letrozole needstrigger shot Randee Myers RN October 12, 2023 2:30 PM Flowsheet done Please schedule the patient for the following- Location: [place] Provider: nurse Visit type: mid cycle Reason for visit/appointment notes: mid cycle non ivf Date: 10-22-23 Time (requested): 0700 If slot is full, please schedule the closest open slot. Call to patient needed: no * Telephone Encounter - Ayanna Wise - 10/12/2023 1:31 PM EDT Patient states she also needs information regarding trigger shot. Please call patient. documented in this encounterCommunity [facility] Medical Center07-16-2024 Telephone encounter Note * Telephone Encounter - Randee Myers RN - 10/12/2023 2:28 PM EDT Called the patient she verified her name and date of period started today has letrozole needstrigger shot Randee Myers RN October 12, 2023 2:30 PM Flowsheet done Please schedule the patient for the following- Location: [place] Provider: nurse Visit type: mid cycle Reason for visit/appointment notes: mid cycle non ivf Date: 10-22-23 Time (requested): 0700 If slot is full, please schedule the closest open slot. Call to patient needed: no [facility]-16-[facility] Telephone encounter Note* Telephone Encounter - Ayanna Wise - 10/12/2023 1:31 PM EDT Patient states she also needs information regarding trigger shot. Please call patient. [facility] Work Phone: [phone]) 762-561206-14-2024 History of Present illness Narrative* Ortega Morrissey APRN.JASVIR - 09/10/2023 2:56 PM EDT Images from the original note were not included. REPRODUCTIVE ENDOCRINOLOGY AND INFERTILITY IUI TEACH SERVICE DATE: 09/10/2023 SERVICE TIME: 2:56 PM NAME: Lissa Rivas VIRTUAL VISIT PROGRESS NOTE This is a virtual visit. It required patient-provider interaction for the medical decision making as documented below. Patient name and birthday verified: Yes Location of patient: [place] Persons Present: patient I have communicated my name and active licensure. The patient's identity and physical location wereverified at the time of this visit. Either the patient or their legal rental representative has been informed of the risks and benefits of -- and alternatives to -- treatment through a remote evaluation andconsents to proceed with the evaluation remotely. Reason for visit: IUI Teach HPI Primary GAYATHRI Physician: Dr. Khan IUI Treatment Plan: Letrozole 5mg/trigger/IUI Partner's name/MRN: Brenton [id number] LMP: 07/23 IUI Checklist: Consultation: Done Registration of patient and partner: Done Financial Clearance: In process IUI Patient Education: ASRM IUI Patient Fact Sheet IUI Consent Form: sent today via [employer] Orders: filed today Medications ordered today Screening [...] Count Sperm M 592.20 % Motile Sperm (%AL + %MANAGER SOCIAL) >=40 % 64 Forward Progression 4 = [...] provera if progesterone and HCG low/neg Ortega Morrisesy APRN.CNM September 10, 2023 2:56 PM I spent a total of 40 minutes on the date of the service which included preparing to see the patient, [id number] patient care, completing clinical documentation, obtaining and/or [...] errors missed in proofreading. documented in this encounterCommunity [facility] Medical Center06-13-2024 Telephone encounter Note * Telephone Encounter - Ortega Morrissey APRN.CNM - 09/09/2023 9:07 AM EDT The following approved medication requests have been transmitted electronically. Requested Prescriptions Signed Prescriptions Disp Refills medroxyPROGESTERone (PROVERA) 10 mg tablet 10 tablet 0 Sig: Take 1 tablet by mouth once daily. Authorizing Provider: ORTEGA MORRISSEY APRN.CNM September 09, 2023 9:07 AM [facility] Miscellaneous Notes* Telephone Encounter - Ortega Morrissey APRN.CNM - 09/09/2023 9:07 AM EDT The following approved medication requests have been transmitted electronically. Requested Prescriptions Signed Prescriptions Disp Refills medroxyPROGESTERone (PROVERA) 10 mg tablet 10 tablet 0 Sig: Take 1 tablet by mouth once daily. Authorizing Provider: ORTEGA MORRISSEY APRN.CNM September 09, 2023 9:07 AM * Telephone Encounter - Randee Myers RN - 09/09/2023 8:22 AM EDT Called the patient she verified her name [...] 0.2 hCG Quantitative, Blood <5.0 mIU/mL <0.6 * Telephone Encounter - Ortega Spivey - 09/08/2023 9:58 AM EDT Iui Patient called in regards to her lab results documented in this encounterCommunity [facility] Medical Center06-13-2024 Telephone encounter Note * Telephone Encounter - Randee Myers RN - 09/09/2023 8:22 AM EDT Called the patient she verified her name [...] 0.2 hCG Quantitative, Blood <5.0 mIU/mL <0.6 [facility]-12[facility] Telephone encounter Note* Telephone Encounter - Ortega Spivey - 09/08/2023 9:58 AM EDT Iui Patient called in regards to her lab results [facility]06-06-2024 Telephone encounter Note* Telephone Encounter - Amparo Mcclellan RN - 09/02/2023 1:09 PM EDT Returned patient call to number listed. Left VM for patient with plan to get a P4 & hCG level complete. Pt instructed to go to any [facility] site to complete and that once the labs result, someone willbe in contact to discuss results. Patient instructed to call office with any further questions or concerns. Amparo Mcclellan RN September 02, 2023 1:11 PM [facility] Miscellaneous Notes* Telephone Encounter - Amparo Mcclellan RN - 09/02/2023 1:09 PM EDT Returned patient call to number listed. Left VM for patient with plan to get a P4 & hCG level complete. Pt instructed to go to any [facility] site to complete and that once the labs result, someone willbe in contact to discuss results. Patient instructed to call office with any further questions or concerns. Amparo Mcclellan RN September 02, 2023 1:11 PM * Telephone Encounter - Amparo Mcclellan RN - 09/02/2023 11:39 AM EDT Returned patient call. Patient LMP was 07/24/23. [...] Mcclellan RN September 02, 2023 11:41 AM * Telephone Encounter - Ayanna Wise - 09/02/2023 10:53 AM EDT Please follow up with patient. documented in this encounterCommunity [facility] Medical Center06-06-2024 Telephone encounter Note * Telephone Encounter - Amparo Mcclellan RN - 09/02/2023 11:39 AM EDT Returned patient call. Patient LMP was 07/24/23. [...] Mcclellan RN September 02, 2023 11:41 AM [facility] Telephone encounter Note* Telephone Encounter - Ayanna Wise - 09/02/2023 10:53 AM EDT Please follow up with patient. [facility] Work Phone: 1(610) 612-491505-23-2024 Progress note* Fede Hairston MD - 08/19/2023 11:11 AM EDT [facility] Date: 08/19/2023 Consultation Requested [...] Hysteroscopy Laparoscopy OPK (Ovulation Predictor Kit) Ovarian [place] [facility] 10.91 High 01/04/2023 Saline Ultrasound Semen [...] visit. Either the patient or their legal rental representative has been informed of the risks and benefits of -- and alternatives to -- treatment through a remote evaluation andconsents to proceed with the evaluation remotely. I spent a total of 30 minutes on the date of the service which included preparing to see the patient, mnat-jx-jlag patient care, completing clinical documentation, counseling and educating the patient/family/caregiver, ordering medications, tests, or procedures, communicating results to the patient/ family/caregiver, and care coordination (not separately reported). Kim Khan MD [facility] Consult note* Fede Hairston MD - 08/19/2023 11:11 AM EDT [facility] Date: 08/19/2023 Consultation Requested [...] appointment with cancer genetic team soon. 5. eCert - test neg for all mutations. Initial [...] Hysteroscopy Laparoscopy OPK (Ovulation Predictor Kit) Ovarian [place] [facility] 10.91 High 01/04/2023 Saline Ultrasound Semen [...] visit. Either the patient or their legal rental representative has been informed of the risks and benefits of -- and alternatives to -- treatment through a remote evaluation andconsents to proceed with the evaluation remotely. I spent a total of 30 minutes on the date of the service which included preparing to see the patient, [id number] patient care, completing clinical documentation, counseling and educating the patient/family/caregiver, ordering medications, tests, or procedures, communicating results to the patient/ family/caregiver, and care coordination (not separately reported). Kim Khan MD documented in this encounterCommunity [facility] Plan of care note* GAYATHRI Plan Note - Fede Hairston MD - 08/19/2023 11:05 AM EDT Patient indicated that her period still q [...] daily Comments: None Kim Khan MD 08/19/2023 [facility] Miscellaneous Notes* GAYATHRI Plan Note - Fede Hairston MD - 08/19/2023 11:05 AM EDT Patient indicated that her period still q [...] Kim Khan MD 08/19/2023 documented in this encounterCommunity [facility] Center05-21-2024 History of Present illness Narrative* Мария Laboy MD - 08/17/2023 10:52 AM EDT CC: Patient presents with: New Patient: SHDA [...] while trying for , who presents [facility]. 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 Patient does report having spontaneous episodes of feeling like her heart is racing, anxiety, and feeling flushed at times. Most recent metanephrines and imaging negative. Patient denies any dysphagia, pain in the head/neck, or previoushistory of head & neck surgery. ALLERGIES No [...] tablets by mouth once daily. Take day 3- 7 of her cycle (Patient not taking: Reported [...] orifices bilaterally. Oropharynx demonstrated a normal base oftongue and posterior pharynx. Larynx demonstrated normal supraglottis [...] Lissa Rivas. I discussed the management of Lsisa Rivas with the resident. I reviewed the resident's note and agree with the documented findings and plan of care. Мария Laboy MD documented in this encounterCommunity [facility] Center05-21-[facility]24 Nurse Note* Raina Samuels CT - 08/17/2023 10:47 AM EDT Tobacco Use: Never Was smoking cessation packet given? N/A - Patient is a non-smoker or quit >1 year ago. Was a referral initiated?N/A Patient is a non-smoker [facility] Note* Raina Samuels CT - 08/17/2023 10:47 AM EDT Tobacco Use: Never Was smoking cessation packet given? N/A - Patient is a non-smoker or quit >1 year ago. Was a referral initiated?N/A Patient is a non-smoker documented in this encounterCommunity [facility] Center05-21-2024 History of Present illness Narrative* Mirta Gallagher MD - 08/17/2023 10:04 AM EDT DATE: 08/17/2023 ENDOCRINOLOGY OUTPATIENT NOTE Ms. Lissa [...] usually found in the head or neck (HNP)and often do not cause symptoms. Hormonally active [...] tablets by mouth once daily. Take day 3- 7 of her cycle PNV no.95/ferrous fum/folic ac [...] her on LT4 as we like to keepthe TSH under 2.5 prior to in this [...] Gallagher MD, MPH Endocrinology documented in this encounterCommunity [facility] Medical Center05-21-2024 Instructions* Patient Instructions* Latosha Wesley MA - 08/17/2023 9:53 AM EDT Thank you for choosing the [facility] Department of Endocrinology, Diabetes and Metabolism. Did you know that you need to call 48 hours in advance of your scheduled visit, if you are unable to make your appointment? The Endocrinology and Metabolism [place] thanks you for your commitment, because patients not showing to their appointment results in a lost opportunity for patients to receive [facility] at the [facility]. To Cancel an appointment, please choose one of the following: - Call the Appointment Call Center at [phone] - From [employer], Go to Appointments - Cancel Appts If cancelling, consider your need to reschedule to prevent further delays in your care. To Schedule an appointment, please choose one of the following: - Call the Appointment Call Center at [phone] - From [employer], Go to Appointments - Request an Appt documented in this encounterCommunity [facility] Medical Center05-02-2024 History of Present illness Narrative* Flip Newman RT(R) - 07/29/2023 1:00 PM EDT Radiology Service Progress Note PATIENT NAME: Lissa Rivas DATE OF SERVICE: July 29, 2023 TIME: 1:58 PM PATIENT IDENTITY VERIFICATION COMPLETED USING TWO (2) IDENTIFIERS: Name and Date of confirmedby patient verbally. FALL SCREENING: Has the patient had 2 falls in the last year or 1 fall with injury or currently using an Ambulatory Assistive Device (Walker, Cane, Wheelchair, Crutches, etc.)? No PATIENT GENDER DATA: Female. status: : No status: NO. PATIENT RELEVANT IMPLANT DATA REVIEWED: Not Applicable PATIENT PRESENTS WITH AN IMPLANTABLE OR ATTACHED COOK BOAT: No RADIOLOGY DEPARTMENT: General X-ray: Exam(s) Completed: HSG PERIPHERAL IV DATA: Not applicable SIGNED BY: RT Clark(Loc) July 29, 2023 1:58 PM documented in this encounterCommunity [facility] Medical Center05-02-2024 NoteHNO ID: [id number] Author: FLIP NEWMAN RT (R) Service: Radiology Author Type: Technologist Type: Progress Notes Filed: 07/29/2023 13:58 Note Text: Radiology Service Progress Note PATIENT NAME: Lissa Rvias DATE OF SERVICE: July 29, 2023 TIME: [...] PATIENT PRESENTS WITH AN IMPLANTABLE OR ATTACHED COOK BOAT: No RADIOLOGY DEPARTMENT: General X-ray: Exam(s) Completed: HSG PERIPHERAL IV DATA: Not applicable SIGNED BY: RT Clark(Loc) July 29, 2023 1:58 [facility] [id number] NoteHNO ID: [id number] Author: ORTEGA MORRISSEY APRN.CNM Service: ? Author [...] bilaterally without evidence of loculation. Ortega Morrissey APRN.CNOhioHealth Marion General [id number] Procedure note* Ortega Morrissey APRN.CNM - 07/29/2023 1:00 PM EDT WHI GAYATHRI HYSTEROSALPINGOGRAM NOTE Date: July 29, [...] Hibiclens. The canula/Balloon catheter was inserted into thecervix and dye injected into the cavity. Using Fluroscopy the uterine cavity is normal and the fallopian tubes are patent bilaterally without evidence of loculation. Ortega Morrissey APRN.CNM [facility] Procedure note* Ortega Morrissey APRN.CNM - 07/29/2023 1:00 PM EDT I GAYATHRI HYSTEROSALPINGOGRAM NOTE Date: July 29, [...] Hibiclens. The canula/Balloon catheter was inserted into thecervix and dye injected into the cavity. Using Fluroscopy the uterine cavity is normal and the fallopian tubes are patent bilaterally without evidence of loculation. Ortega Morrissey APRN.CNM documented in this encounterCommunity Regional Medical Center03-20-2024 Miscellaneous Notes* Addendum Note - Мария Laboy MD - 06/16/2023 4:39 PM EDTAddended by: МАРИЯ LABOY on: 06/16/2023 04:39 PM Modules accepted: Orders * Telephone Encounter - Fina Davalos LGC - 06/16/2023 4:23 PM EDT Spoke with patient regarding screening for paraganglioma [...] Мария Laboy. Patient will be updated via [email or web address] when orders are placed forimaging. Fina Davalos MSGREG Licensed, Certified Genetic Counselor documented in this encounterCommunity [facility] Center03-18-2024 Telephone encounter Note * Telephone Encounter - Elsa Puentes LGC - 06/14/2023 1:39 PM EDT Patient had questions about impact of testing [...] Puentes MS, CGC Licensed, Certified Genetic Counselor [facility] Work Phone: [phone] Miscellaneous Notes* Telephone Encounter - Elsa Puentes LGC - 06/14/2023 1:39 PM EDT Patient had questions about impact of testing [...] get tested to try for children. Elsa Puentse MS, CGC Licensed, Certified Genetic Counselor * Telephone Encounter - Elsa Puentes, [facility] - 06/10/2023 4:04 PM EDT Patient name and was confirmed at initiation of discussion. Lissa Rivas's Integrated BRACAnalysis with Humberto through [facility] was positive for a pathogenic variant in [...] usually found in the head or neck (HNP)and often do not cause symptoms. Hormonally active [...] population without disease (benign polymorphism). Please see [email or web address] message for further discussion. CHRISTIE Magdaleno Licensed, Certified Genetic Counselor documented in this encounterCommunity [facility] Medical Center03-14-2024 Telephone encounter Note * Telephone Encounter - Elsa Puentes LGC - 06/10/2023 4:04 PM EDT Patient name and was confirmed at initiation of discussion. Lissa Rivas's Integrated BRACAnalysis with [facility]umber[facility] through [employer] was positive for a pathogenic variant in [...] usually found in the head or neck (HNP)and often do not cause symptoms. Hormonally active [...] population without disease (benign polymorphism). Please see Mirego for further discussion. CHRISTIE Magdaleno Licensed, Certified Genetic Counselor [facility]24 Miscellaneous Notes* Telephone Encounter - Ortega Morrissey APRN.CNM - 05/25/2023 11:17 AM EST The following approved medication requests have been transmitted electronically. Requested Prescriptions Signed Prescriptions Disp Refills letrozole (FEMARA) 2.5 mg tablet 10 tablet 0 Sig: Take 2 tablets by mouth once daily. Take day 3-7 of her cycle Authorizing Provider: ORTEGA MORRISSEY APRN.CNM May 25, 2023 11:17 AM * Telephone Encounter - Randee Myers RN - 05/25/2023 10:05 AM EST Called the patient she verified her name and date of Patient needs refill of letrozole Has done 3 cycles of letrozole Randee Myers RN May 25, 2023 10:06 AM * Telephone Encounter - Ayanan Wise - 05/25/2023 9:59 AM EST [facility] in [place] is pharmacy. Please follow up with patient. documented in this encounterCommunity Regional Medical Center02-19-2024 Miscellaneous Notes* Telephone Encounter - Elsa Puentes [facility] - 05/17/2023 11:24 AM EST Spoke to Thao again, confirmed name/. Reviewed [...] detect the familial mutation. 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 The patient was offered SDHA single site mutation analysis through [facility] or self pay Integrated BRACAnalysis with [facility] and SDHA single site mutation analysis through [facility]. After considering the risks, benefits, and limitations, the patient chose to pursue and provided informed consent for the following testing: SELF PAY Integrated BRACAnalysis with [facility] and SDHA single site mutation analysis through [facility]. The myRisk panel includes APC, MICHAEL, AXIN2, [...] to the presenting phenotype. We discussed that [employer] may contact the patient by text or phone call regarding billing. The patient should watch for this communication and respond promptly. The patient should contact [employer] directly with any billing questions (ph. [phone]). Elsa Puentes MS, [facility] Licensed, Certified Genetic Counselor * Telephone Encounter - Elsa Puentes LGC - 04/23/2023 3:19 PM EST Called patient to discuss her mother's genetic [...] NTHL1, PALB2, PDGFRA, PMS2, POLD1, POLE, POT1, YKCMW6N, PTCH1, PTEN, RAD51C, RAD51D, RB1, RET, SDHA, SDHAF2, SDHB, SDHC, SDHD, SMAD4, SMARCA4, SMARCB1, SMARCE1, STK11, SUFU, YQMT868, TP53, TSC1, TSC2, and VHL The Multi-Cancer panel looks at genes associated with cancers of the breast, gynecologic tract (ovarian, uterine/endometrial), gastrointestinal system (colorectal, gastric, pancreatic), endocrine glands (thyroid, parathyroid, pituitary, adrenal glands), genitourinary tract (renal/urinary tract, prostate), skin (melanoma, basal cell carcinoma), and brain/nervous system. AM CHECKING WITH [email or web address] FIRST ABOUT VARIANT BEFORE PROCEEDING, WILL CONTACT PATIENT WHEN READY TO MOVE FORWARD. Elsa Puentes MS, [facility] Licensed, Certified Genetic Counselor documented in this encounterCommunity Regional Medical Center01-24-2024 NoteHNO ID: [id number] Author: ELSA PUENTES LGC Service: ? Author Type: Genetic Counselor Type: Progress Notes Filed: 05/18/2023 16:44 Note Text: [facility] Consultation Note Genetic Counselor: Elsa Puentes MS, [facility] Patient: Lissa Rivas Patient Name and confirmed at initiation of visit. The patient provided consent for a virtual visit by [employer]. I have communicated my name and active licensure. The patient's identity and physical location were verified at the time of this visit. Either the patient or their legal rental representative has been informed of the risks [...] Procedure Laterality Date EYE SURGERY HX 03/2020 [facility] CANCER SURVEILLANCE HISTORY: Mammograms: No Breast MRI's: [...] , descent and paternal ancestors are of Lao descent. There is no Ashkenazi Buddhism ancestry. There is no known consanguinity. A [...] point. We also revi (more content not included)...[facility] [id number] History of Present illness Narrative* Elsa Puentes, [facility] - 04/21/2023 12:33 PM EST Images from the original note were not included. [facility] [place] [facility] Consultation Note Genetic Counselor: Elsa Puentes MS, [facility] Patient: Lissa Rivas Patient Name and confirmed at initiation of visit. The patient provided consent for a virtual visit by [employer]. I have communicated my name and active licensure. The patient's identity and physical location were verified at the time of this visit. Either the patient or their legal rental representative has been informed of the risks and benefits of -- and alternatives to -- treatment through a remote evaluation and consents to proceed with the evaluation remotely. HIGH LEVEL SUMMARY: The patient's family history is potentially suggestive of a hereditary cancer syndrome. However, patient's mother has had previous genetic testing. Patient reports that her testing was positive for ahereditary cancer syndrome. Discussed the next step of [...] , descent and paternal ancestors are of Lao descent. There is no Ashkenazi Buddhism ancestry. There is no known consanguinity. A [...] extend to insurances such as life insurance, detention care, or disability. The patient was seen for a total of 30 minutes, greater than 50% of which was spent aclz-oq-sxrd counseling. This plan is being carried out under the oversight of Dr. Annamarie Joe. This note will also be sent to the referring provider via the electronic medical record. Elsa Puentes MS, [facility] CC: Dr. Fede Joe documented in this encounterCommunity Regional Medical Center01-21-2024 Miscellaneous Notes* GAYATHRI Plan Note - Fede Hairston MD - 04/18/2023 5:55 PM EST Lissa Rivas is a 28 year old female with PCOS, anovulatory infertility. Plan: - she will get vaccinated for rubella at the local pharmacy. - Titrate dose of letrozole accordingly. - if not after 2-3 months of appropriate dose of letrozole, I would recommend she has HSG and her has SA. All questions are answered. Kim Khan MD documented in this encounterCommunity Regional Medical Center01-10-2024 Consult note* Fede Hairston MD - 04/07/2023 5:48 PM EST Date of Consult: 04/07/2023 Lissa Rivas is [...] Hysteroscopy Laparoscopy OPK (Ovulation Predictor Kit) Ovarian [place] [facility] 10.91 High 01/04/2023 Saline Ultrasound Semen [...] which included preparing to see the patient, [id number] patient care, counseling and educating the patient/family/caregiver, and ordering medications, tests, or procedures. I have communicated my name and active licensure. The patient's identity and physical location wereverified at the time of this visit. Either the patient or their legal rental representative has been informed of the risks and benefits of -- and alternatives to -- treatment through a remote evaluation andconsents to proceed with the evaluation remotely. Kim Khan MD documented in this encounterCommunity Regional Medical Center11-13-2023 History of Present illness Narrative* Fede Hairston MD - 02/08/2023 3:03 PM EST Patient is here for ultrasound. Please see image section in Epic for results. Kim Khan MD documented in this encounterCommunity Regional Medical Center11-09-2023 Miscellaneous Notes* Telephone Encounter - Ortega Morrissey APRN.CNP - 02/04/2023 2:12 PM EST 21 day progesterone level ordered. Ortega Morrissey APRN.CNP February 04, 2023 2:12 PM * Telephone Encounter - Keren Carcamo - 02/04/2023 2:05 PM EST Pt states she has started her letrozole today documented in this encounterCommunity Regional Medical Center03-31-2023 Evaluation note* Encounter Date Diagnosis Assessment Notes Treatment Notes Treatment Clinical Notes May, Puncture wound of finger of [...] May, Other Puncture wound material was printed [facility] Other 01-01-2021 History general Narrative - Reported* Type Description Date Medical History asthma Surgical History laser eye surgery, bilateral Hospitalization History Rash, age 5 [facility] Other Evaluation note* Diagnosis Encounter for fertility testing- Primary Fertility testing [facility] Diagnosis Secondary amenorrhea Absence of menstruation PCOS (polycystic ovarian syndrome) Polycystic ovaries documented in this [facility]* Diagnosis PCOS (polycystic ovarian syndrome)- Primary Polycystic ovaries Fertility testing documented in this encounter [facility] note* Diagnosis Family history of cancer- Primary Family history of unspecified malignant neoplasm Family history of gene mutation [facility]* Diagnosis Family history of breast cancer- Primary Family history of malignant neoplasm of breast Family history of prostate cancer Family history of malignant neoplasm of prostate documented [facility] this encounter [facility]* Diagnosis Procreative management- Primary Unspecified procreative management documented [facility] this encounter [facility]* Diagnosis Monoallelic mutation of SDHA gene- Primary Localized enlarged lymph nodes Enlargement of lymph nodes Intra-abdominal and pelvic swelling, mass and lump, unspecified site documented [facility] this encounter [facility]* Diagnosis Encounter for fertility testing- Primary Fertility testing Pre-procedure lab exam Pre-procedural laboratory examination documented [facility] this encounter [facility]* Diagnosis Fertility testing documented [facility] this encounter [facility]* Diagnosis Monoallelic mutation of SDHA gene- Primary Obesity, Class III, BMI 40-49.9 (morbid obesity) (HCC) Morbid obesity documented [facility] this encounter [facility]* Diagnosis Irregular menstrual cycle- Primary PCOS (polycystic ovarian syndrome) Polycystic ovaries documented [facility] this encounter [facility]* Diagnosis Monoallelic mutation of SDHA gene- Primary documented [facility] this encounter [facility]* Diagnosis Secondary amenorrhea- Primary Absence of menstruation documented [facility] this encounter [facility]* Diagnosis Secondary amenorrhea- Primary Absence of menstruation documented [facility] this encounter [facility]* Diagnosis Screen for sexually transmitted diseases- Primary Screening examination for venereal disease Secondary amenorrhea Absence of menstruation Female infertility Female infertility of unspecified origin documented [facility] this encounter [facility]* Diagnosis Procreation management investigation and testing- Primary Other investigation and testing for procreative management documented [facility] this encounter [facility]* Diagnosis Treatment plan provided- Primary documented in this encounter [facility]* Diagnosis Female infertility Female infertility of unspecified origin documented [facility] this encounter [facility]* Diagnosis Encounter for artificial insemination- Primary Artificial insemination documented in this encounter [facility]* Diagnosis Procreation management investigation and testing- Primary Other investigation and testing for procreative management documented [facility]* Diagnosis Procreation management investigation and testing- Primary Other investigation and testing for procreative management Female infertility Female infertility of unspecified origin [facility] Diagnosis Procreation management investigation and testing- Primary Other investigation and testing for procreative management documented in this encounter [facility]* Diagnosis Procreation management investigation and testing- Primary Other investigation and testing for procreative management documented [facility] this encounter [facility]* Diagnosis Female infertility Female infertility of unspecified origin [facility]* Diagnosis Procreation management investigation and testing- Primary Other investigation and testing for procreative management documented [facility] this encounter [facility]* Diagnosis Female infertility- Primary Female infertility of unspecified origin [facility] Female infertility- Primary Female infertility of unspecified origin documented in this encounter [facility] note* Diagnosis Encounter for artificial insemination- Primary Artificial insemination documented in this encounter [facility] note* Diagnosis Procreation management investigation and testing- Primary Other investigation and testing for procreative management documented in this encounter [facility] note* Diagnosis Female infertility- Primary Female infertility of unspecified origin documented in this encounter [facility] note* Diagnosis Encounter for gynecological examination without abnormal finding- Primary Screening for malignant neoplasm of cervix Screening for malignant neoplasm of the cervix Desire for BV (bacterial vaginosis) Unspecified vaginitis and vulvovaginitis documented in this encounter [facility] note* Diagnosis Procreation management investigation and testing- Primary Other investigation and testing for procreative management documented in this encounter [facility] note* Diagnosis Female infertility Female infertility of unspecified origin documented in this encounter [facility] note* Diagnosis Female infertility- Primary Female infertility of unspecified origin documented in this encounter [facility] note* Diagnosis Otalgia of both ears- Primary Temporomandibular joint disorder Unspecified temporomandibular joint disorders Chronic allergic rhinitis Postnasal drip documented in this encounter [facility] Work [facility]: [facility]* Diagnosis Supervision of with history of infertility, first trimester- Primary examination or test, unconfirmed documented in this encounter [facility] note* Diagnosis Encounter for test, result positive- Primary examination or test, positive result documented in this encounter [facility] note* Diagnosis Supervision of with history of infertility, first trimester- Primary documented in this encounter [facility] note* Diagnosis PCOS (polycystic ovarian syndrome)- Primary Polycystic ovaries documented in this encounter [facility] note* Diagnosis Encounter for supervision of normal first in first trimester Encounter for drug screening documented in this encounter [facility] note* Diagnosis Supervision of with history of infertility, first trimester documented in this encounter [facility] note* Diagnosis Procreation management investigation and testing- Primary Other investigation and testing for procreative management documented in this encounter [facility] note* Diagnosis Missed menses , unspecified gestational age Encounter for supervision of normal first in first trimester 9 weeks gestation of documented in this encounter [facility]* Diagnosis First trimester state, incidental 13 weeks gestation of Urinary tract infection without hematuria, site unspecified documented in this encounter [facility]* Diagnosis Onychomycosis- Primary Dermatophytosis of nail Onychodystrophy Other specified disease of nail Xerosis cutis Other specified disease of sebaceous glands Fissure in skin of both feet documented in this encounter [facility]* Diagnosis Second trimester state, incidental 14 weeks gestation of Spotting in Spotting complicating , unspecified as to episode of care or not applicable documented in this encounter [facility]* Diagnosis Monoallelic mutation of SDHA gene- Primary [facility] Diabetes mellitus screening Screening for diabetes mellitus Second trimester state, incidental 22 weeks gestation of documented in this encounter [facility]* Diagnosis Annual physical exam- Primary Routine general medical examination at a health care facility Hepatic steatosis Other chronic 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 Polycystic ovaries Vitamin D deficiency Palpitations Murmur Undiagnosed cardiac murmurs documented in this encounter [facility]* Diagnosis Second trimester state, incidental 26 weeks gestation of documented in this encounter [facility] Healthcare[facility] noteNo assessment information availableMercy Health St. [facility] Work Phone: Evaluation note* Diagnosis Gestational diabetes mellitus (GDM) in third trimester, gestational diabetes method of control unspecified- Primary documented in this encounter [facility]* Diagnosis Monoallelic mutation of SDHA gene- Primary Gestational diabetes mellitus (GDM) in third trimester, gestational diabetes method of control unspecified (HCC) [facility] Diagnosis 28 weeks gestation of Third trimester state, incidental Gestational diabetes mellitus (GDM), antepartum, gestational diabetes method of control unspecified Herpes simplex virus type 1 (HSV-1) dermatitis documented in this encounter [facility]* Diagnosis Insulin controlled gestational diabetes mellitus (GDM) in third trimester Abnormal liver enzymes Abnormal genetic test Gestational diabetes requiring insulin Abnormal maternal glucose tolerance, complicating , childbirth, or the puerperium, unspecified as to episode of care Elevated blood pressure affecting , antepartum documented in this encounter [facility]* Diagnosis History of gestational diabetes- [...] Abnormal liver enzymes documented in this encounter [facility]* Diagnosis Insulin controlled gestational diabetes mellitus (GDM) in third trimester- Primary Gestational diabetes requiring insulin Abnormal maternal glucose tolerance, complicating , childbirth, or the puerperium, unspecified as to episode of care documented in this encounter [facility] note* Diagnosis Third trimester (HHS-HCC) state, incidental Insulin controlled gestational diabetes mellitus (GDM) during , antepartum (HHS-HCC) 32 weeks gestation of (HHS-HCC) documented in this encounter [facility]* Diagnosis Herpes simplex- Primary Herpes simplex without mention of complication 33 weeks gestation of (HHS-HCC) Encounter for routine care (HHS-HCC) Third trimester (HHS-HCC) state, incidental documented in this encounter [facility]* Diagnosis Third trimester (HHS-HCC) state, incidental 34 weeks gestation of (HHS-HCC) Herpes simplex virus type 1 (HSV-1) dermatitis Insulin controlled gestational diabetes mellitus (GDM) during , antepartum (HHS-HCC) documented in this encounter [facility]* Diagnosis Insulin controlled gestational diabetes mellitus (GDM) in third trimester- Primary [facility] Diagnosis induced hypertension, antepartum (HHS-HCC)- Primary Transient hypertension of , antepartum Third trimester (HHS-HCC) state, incidental 35 weeks gestation of (HHS-HCC) documented in this encounter [facility]* Diagnosis Third trimester (HHS-HCC) state, incidental 36 weeks gestation of (HHS-HCC) induced hypertension, antepartum (HHS-HCC) Transient hypertension of , antepartum documented in this encounter [facility] HealthcareInstructionsNot on filedocumented in this encounterProMedica Health SystemInstructionsNot on filedocumented in this encounterProMedior Health SystemInstructionsNot on filedocumented in this encounterProMedica Health SystemInstructionsNot on filedocumented in this encounterProTrinity [facility] InstructionsNot on filedocumented in this encounterProTrinity Health System West Campusca [facility] InstructionsNot on filedocumented in this encounterProThomasville [facility] System InstructionsNot on filedocumented in this encounterProTrinity Health System West Campusca [facility] System InstructionsNot on filedocumented in this encounterProSalem [facility] SystemReason for referral (narrative)* Diagnostic Procedure Only (Routine) - Pending Review Specialty Diagnoses / Procedures Referred By Blair beltran Referred To Contact XR IMAGING Diagnoses Fertility testing Procedures XR HYSTEROSALPINGOGRAM CATH & SALINE/CONTRAST SONOHYSTER/HYSTEROSALPI Fede Hairston MD [address] [place] [address] Xr Imaging [facility] Referral ID Status Reason Start Date Expiration Date Visits Requested Visits Authorized [id number] Pending Review Auto-Generat ed Referral 04/18/2023 05/17/2024 1 1 [facility] for referral (narrative)* Diagnostic Procedure Only (Routine) - Pending Review Specialty Diagnoses / Procedures Referred By Blair beltran Referred To Contact [facility] Diagnoses Female infertility Procedures FOLLICULAR US WHI US PELVIC NONOBSTETRIC IMAGE DCMTN LIMITED/F/U Ortega Morrissey APRN.CNM [address] [place] [address] [facility] [address] [place] [address] Referral ID Status Reason Start Date Expiration Date Visits Requested Visits Authorized [id number] Pending Review Auto-Generat ed Referral 09/10/2023 09/09/2024 1 1 [facility] for referral (narrative)* Diagnostic Procedure Only (Routine) - New Request Specialty Diagnoses / Procedures Referred By Contac t Referred To Contact [facility] Diagnoses Female infertility Procedures FOLLICULAR US WHI US PELVIC NONOBSTETRIC IMAGE JOE LIMITED/F/U Ortega Morrissey APRN.LEAN PROCESS DEPLOYMENT CONSULTANT [address] [place] [address] [facility] [address] [place] [address] Referral ID Status Reason Start Date Expiration Date Visits Requested Visits Authorized [id number] New Request Auto-Generat ed Referral 12/13/2023 12/12/2024 1 1 [facility] for referral (narrative)* Diagnostic Procedure Only (Routine) - New Request Specialty Diagnoses / Procedures Referred By Contac t Referred To Contact [facility] Diagnoses Female infertility Procedures FOLLICULAR US I US PELVIC NONOBSTETRIC IMAGE JOE LIMITED/F/U Ortega Morrissey APRN.LEAN PROCESS DEPLOYMENT CONSULTANT [address] [place] [address] [facility] [address] [place] [address] Referral ID Status Reason Start Date Expiration Date Visits Requested Visits Authorized [id number] New Request Auto-Generat ed Referral 02/14/2025 1 1 [facility] for referral (narrative)* Diagnostic Procedure Only (Routine) - Authorized Specialty Diagnoses / Procedures Referred By Contac t Referred To Contact [facility] Diagnoses Supervision of with history of infertility, first trimester Procedures OBSTETRIC ULTRASOUND WHI US PREG UTERUS AFTER 1ST TRIMEST GESTATION Ortega Morrissey APRN.LEAN PROCESS DEPLOYMENT CONSULTANT [address] [place] [address] [facility] [address] [place] [address] Referral ID Status Reason Start Date Expiration Date Visits Requested Visits Authorized [id number] Authorized Auto-Generat ed Referral 03/17/2025 1 1 [facility] ([facility]ative)No reason for referral information availableFlower [facility] Work Phone: Reason for visit Narrative* Diagnostic Procedure Only (Routine) - Closed Specialty Diagnoses / Procedures Referred By Blair beltran Referred To Contact [facility] Diagnoses Supervision of with history of infertility, first trimester Procedures OBSTETRIC ULTRASOUND I US PREG UTERUS AFTER 1ST TRIMEST GESTATION Ortega Morrissey APRN.LEAN PROCESS DEPLOYMENT CONSULTANT [address] [place] [address] [place] [address] [address] [place] [id number] Referral ID Status Reason Start Date Expiration Date V isits Requested Visits Authorized [id number] Closed Auto-Generate d Referral 03/17/2024 03/17/2025 1 1 [facility] Summary Purpose Family History Relationship Condition Age at Onset Recorded Date/T lucero father Diabetes mellitus Unknown Heart disease Unknown mother Hypertension Unknown Advance Directives Advance Directive Response Recorded Date/ Time Advance Directives No February 2:57pm Reason for Referral Specialty Diagnoses / Procedures Referred By Blair beltran Referred To Contact [facility] Diagnoses Female infertility Procedures FOLLICULAR US [facility] US PELVIC NONOBSTETRIC IMAGE DCMTN LIMITED/F/U Ortega Morrissey APRN.LEAN PROCESS DEPLOYMENT CONSULTANT [address] [place] [address] [facility] [address] [place] [address] Referral ID Status Reason Start Date Expiration Date Visits Requested Visits Authorized [id number] Authorized Benefit Check 11/15/2023 03/28/2024 1 1 Specialty Diagnoses / Procedures Referred By Blair t Referred To Contact Ortega Morrissey APRN.LEAN PROCESS DEPLOYMENT CONSULTANT [address] [place] [address] Referral ID Status Reason Start Date Expiration Date Visits Re quested Visits Authorized [id number] Closed 1 1 Specialty Diagnoses / Procedures Referred By Contac t Referred To Contact Diagnoses Obesity, Class III, BMI 40-49.9 (morbid obesity) (HCC) Procedures ENDOCRINE MEDICAL WEIGHT MANAGEMENT OFFICE/OUTPATIENT [facility] 60 MINUTES Mirta Gallagher MD [address] [place] [address] Referral ID Status Reason Start Date Expiration Date Visits Requested Visits Authorized [id number] Authorized PCP Requested Referral 08/17/2023 08/16/2024 1 1 Specialty Diagnoses / Procedures Referred By Contac t Referred To Contact CT IMAGING Diagnoses Intra-abdominal and pelvic swelling, mass and lump, unspecified site Procedures CT ABDOMEN W IVCON CT ABDOMEN W/CONTRAST Мария Laboy MD [address] [place] [address] Ct Imaging [facility] Referral ID Status Reason Start Date Expiration Date Visits Requested Visits Authorized [id number] Pending Review Auto-Generat ed Referral 06/16/2023 07/15/2024 1 1 Specialty Diagnoses / Procedures Referred By Contac t Referred To Contact CT IMAGING Diagnoses Localized enlarged lymph nodes Procedures CT CHEST W IVCON DIAGNOSTIC COMPUTED TOMOGRAPHY THORAX W/CONTRAST Мария Laboy MD [address] [place] [address] Ct Imaging [facility] Referral ID Status Reason Start Date Expiration Date Visits Requested Visits Authorized [id number] Pending Review Auto-Generat ed Referral 06/16/2023 07/15/2024 1 1 Specialty Diagnoses / Procedures Referred By Contac t Referred To Contact CT IMAGING Diagnoses Localized enlarged lymph nodes Procedures CT NECK SOFT TISSUE W IVCON CT SOFT TISSUE NECK W/CONTRAST MATERIAL Мария Laboy MD [address] [place] [address] [place] [address] Referral ID Status Reason Start Date Expiration Date Visits Requested Visits Authorized [id number] Pending Review Auto-Generat ed Referral 06/16/2023 07/15/2024 1 1 Chief Complaint and Reason for Visit Chief Complaint Admit Date R00.2 R01.1 August 24, 2024 12:14 pm Chief Complaint Admit Date R00.2 R01.1 August 24, 2024 12:14 pm R00.2 R01.1 September 14, 2024 12:0 0am Abnormal ECG- EKG October 18, 2024 2:11 pm Chief Complaint Admit Date R00.2 R01.1 August 24, 2024 12:14 pm R00.2 R01.1 September 14, 2024 12:0 0am R94.31 October 18, 2024 2:09 pm Abnormal ECG- EKG October 18, 2024 2:11 pm I47.10 R06.00 October 18, 2024 3:07 pm Reason for Visit Admit Date Abnormal cardiovascular function study J lubna 2024 2:11pm Heart palpitations October 18, 2024 2:11 pm NSVT (nonsustained ventricular tachycard ia) October 18, 2024 2:11pm October 18, 2024 2:11 pm Additional Source Comments INFORMATION SOURCE (unrecogn ized section and content) DATE CREATED AUTHOR 12/06/2019 [facility] DATE CREATED AUTHOR AUTHOR'S ORGANIZ ATION 07/24/2023 [facility] DATE CREATED AUTHOR AUTHOR'S ORGANIZ ATION 02/25/2024 [facility] DATE CREATED AUTHOR AUTHOR'S ORGANIZ ATION 03/11/2024 [facility] DATE CREATED AUTHOR AUTHOR'S ORGANIZ ATION 03/11/2024 [facility] DATE CREATED AUTHOR AUTHOR'S ORGANIZ ATION 09/20/2024 [facility] DATE CREATED AUTHOR AUTHOR'S ORGANIZ ATION 10/17/2024 [facility] EPIC DATE CREATED AUTHOR AUTHOR'S ORGANIZ ATION 10/20/2024 [facility] DATE CREATED AUTHOR AUTHOR'S ORGANIZ ATION 10/23/2024 [facility] REASON FOR VISIT (unrecogniz ed section and content) Reason Comments Infertility Specialty Diagnoses / Procedures Referred By Blair t Referred To Contact [facility] Diagnoses Female infertility Procedures FOLLICULAR US WHI US PELVIC NONOBSTETRIC IMAGE DCMTN LIMITED/F/U Ortega Morrissey, DEBBIE.LEAN PROCESS DEPLOYMENT CONSULTANT [address] [place] [address] [facility] [address] [place] [address] Referral ID Status Reason Start Date Expiration Date V isits Requested Visits Authorized [id number] Closed Benefit Check 02/16/2024 03/28/2024 1 1 Reason Comments started letrozole Specialty Diagnoses / Procedures Referred By Contac t Referred To Contact [facility] Diagnoses Secondary amenorrhea PCOS (polycystic ovarian syndrome) Procedures PELVIC US WHI US PELVIC NONOBSTETRIC REAL-TIME IMAGE COMPLETE Fede Hairston MD [address] [place] [address] [address] Referral ID Status Reason Start Date Expiration Date V isits Requested Visits Authorized [id number] Closed Benefit Check 01/21/2023 03/28/2023 1 1 Reason Comments Follow Up Reason Comments Follow Up Reason Comments Appointment Reason Comments refill letrozol/cycle to start in next w [place] Reason Comments Women Nurse - Other Hereditary Para ganglioma-Pheochromocytoma Syndrome clinic Reason Comments Results Genetic Reason Comments Nurse Visit Specialty Diagnoses / Procedures Referred By Contac t Referred To Contact XR IMAGING Diagnoses Fertility testing Procedures XR HYSTEROSALPINGOGRAM CATH & SALINE/CONTRAST SONOHYSTER/HYSTEROSALPI HYSTEROSALPINGOGRAPHY RS&I URINE TEST Fede Hairston MD [address] [place] [address] [place] [address] Referral ID Status Reason Start Date Expiration Date V isits Requested Visits Authorized [id number] Closed Benefit Check 07/19/2023 03/28/2024 1 1 [...] To Contact [facility] Diagnoses Female infertility Procedures FOLLICULAR US WHI US PELVIC NONOBSTETRIC IMAGE DCMTN LIMITED/F/U Ortega Morrissey, INSURANCE CLAIMS EXAMINER.LEAN PROCESS DEPLOYMENT CONSULTANT [address] [place] [address] [facility] [address] [place] [address] Referral ID Status Reason Start Date Expiration Date Visits Re quested Visits Authorized [id number] Closed 09/14/2023 03/28/2024 1 1 Specialty Diagnoses / Procedures Referred By Contac t Referred To Contact [facility] Diagnoses Encounter for other procreative management Procedures ARTIFIC INSEMINATION INTRAUTERIN Ortega Morrissey APRN.LEAN PROCESS DEPLOYMENT CONSULTANT [address] [place] [address] Ortega Morrissey APRN.LEAN PROCESS DEPLOYMENT CONSULTANT [address] [place] [address] Referral ID Status Reason Start Date Expiration Date V isits Requested Visits Authorized [id number] Closed Benefit Check 09/17/2023 03/16/2024 1 1 Reason Comments iui 10/25 , cd 1 11/11 Reason Comments Treatment Planning Referral ID Status Reason Start Date Expiration Date V isits Requested Visits Authorized [id number] Closed Benefit Check 11/15/2023 03/28/2024 1 1 Specialty Diagnoses / Procedures Referred By Blair t Referred To Contact [facility] Diagnoses Encounter for other procreative management Procedures ARTIFIC INSEMINATION INTRAUTERIN Deshawn Riojas MD [address] [place] [address] [facility] [address] [place] [address] Referral ID Status Reason Start Date Expiration Date V isits Requested Visits Authorized [id number] Closed Financial Clearance Required - Self Pay 11/27/2023 02/25/2024 1 1 Reason Comments LMP 12/12/23/ set up monitored cycle Patient Update Referral ID Status Reason Start Date Expiration Date V isits Requested Visits Authorized [id number] Closed Benefit Check 12/15/2023 03/28/2024 1 1 Reason Comments IUI Specialty Diagnoses / Procedures Referred By Contac t Referred To Contact [facility] Diagnoses Encounter for other procreative management Female infertility, unspecified Procedures ARTIFIC INSEMINATION INTRAUTERIN Self Whi Gayathri [facility] [address] [place] [address] Referral ID Status Reason Start Date Expiration Date Visits Requested Visits Authorized [id number] Authorized Benefit Check 09/15/2023 03/16/2024 2 2 [...] Visit Reason Comments 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 [...] control unspecified Saravanan Ahumada R, DO [address] [place] [address] Phone: tel: fax: [facility]- [facility] at [facility] [address] [place] [address] Phone: tel: fax: Referral ID Status Reason Start Date Expiration Date Visits Requested Visits Authorized [id number] Pending Review Specialty Services Required 08/29/2024 08/29/2025 1 1 Reason Comments MEDSTART-GDM Reason Comments Follow Up Yearly follow up Reason Comments GDMA2 Source Comments (unrecognize d section and content) In the event this informatio n is protected by the Federal Confidentiality of Alcohol and Drug Abuse Patient Records regulations: The Federal rules restrict any use of the information to criminally investigate or prosecute any alcohol or drug abuse patient.[facility] Center[facility] the event this information is protected by the Federal Confidentiality of Alcohol and Drug Abuse Patient Records regulations: The Federal rules restrict any use of the information to criminally investigate or prosecute any alcohol or drug abuse patient.[facility] CenterIn the event this information is protected by the Federal Confidentiality of Alcohol and Drug Abuse Patient Records regulations: The Federal rules restrict any use of the information to criminally investigate or prosecute any alcohol or drug abuse patient.[facility] CenterIn the event this information is protected by the Federal Confidentiality of Alcohol and Drug Abuse Patient Records regulations: The Federal rules restrict any use of the information to criminally investigate or prosecute any alcohol or drug abuse patient.[facility] CenterIn the event this information is protected by the Federal Confidentiality of Alcohol and Drug Abuse Patient Records regulations: The Federal rules restrict any use of the information to criminally investigate or prosecute any alcohol or drug abuse patient.[facility] CenterIn the event this information is protected by the Federal Confidentiality of Alcohol and Drug Abuse Patient Records regulations: The Federal rules restrict any use of the information to criminally investigate or prosecute any alcohol or drug abuse patient.[facility] CenterIn the event this information is protected by the Federal Confidentiality of Alcohol and Drug Abuse Patient Records regulations: The Federal rules restrict any use of the information to criminally investigate or prosecute any alcohol or drug abuse patient.[facility] CenterIn the event this information is protected by the Federal Confidentiality of Alcohol and Drug Abuse Patient Records regulations: The Federal rules restrict any use of the information to criminally investigate or prosecute any alcohol or drug abuse patient.[facility] CenterIn the event this information is protected by the Federal Confidentiality of Alcohol and Drug Abuse Patient Records regulations: The Federal rules restrict any use of the information to criminally investigate or prosecute any alcohol or drug abuse patient.[facility] CenterIn the event this information is protected by the Federal Confidentiality of Alcohol and Drug Abuse Patient Records regulations: The Federal rules restrict any use of the information to criminally investigate or prosecute any alcohol or drug abuse patient.[facility] CenterIn the event this information is protected by the Federal Confidentiality of Alcohol and Drug Abuse Patient Records regulations: The Federal rules restrict any use of the information to criminally investigate or prosecute any alcohol or drug abuse patient.[facility] CenterIn the event this information is protected by the Federal Confidentiality of Alcohol and Drug Abuse Patient Records regulations: The Federal rules restrict any use of the information to criminally investigate or prosecute any alcohol or drug abuse patient.[facility] CenterIn the event this information is protected by the Federal Confidentiality of Alcohol and Drug Abuse Patient Records regulations: The Federal rules restrict any use of the information to criminally investigate or prosecute any alcohol or drug abuse patient.[facility] CenterIn the event this information is protected by the Federal Confidentiality of Alcohol and Drug Abuse Patient Records regulations: The Federal rules restrict any use of the information to criminally investigate or prosecute any alcohol or drug abuse patient.[facility] CenterIn the event this information is protected by the Federal Confidentiality of Alcohol and Drug Abuse Patient Records regulations: The Federal rules restrict any use of the information to criminally investigate or prosecute any alcohol or drug abuse patient.[facility] CenterIn the event this information is protected by the Federal Confidentiality of Alcohol and Drug Abuse Patient Records regulations: The Federal rules restrict any use of the information to criminally investigate or prosecute any alcohol or drug abuse patient.[facility] CenterIn the event this information is protected by the Federal Confidentiality of Alcohol and Drug Abuse Patient Records regulations: The Federal rules restrict any use of the information to criminally investigate or prosecute any alcohol or drug abuse patient.[facility] CenterIn the event this information is protected by the Federal Confidentiality of Alcohol and Drug Abuse Patient Records regulations: The Federal rules restrict any use of the information to criminally investigate or prosecute any alcohol or drug abuse patient.[facility] CenterIn the event this information is protected by the Federal Confidentiality of Alcohol and Drug Abuse Patient Records regulations: The Federal rules restrict any use of the information to criminally investigate or prosecute any alcohol or drug abuse patient.[facility] CenterIn the event this information is protected by the Federal Confidentiality of Alcohol and Drug Abuse Patient Records regulations: The Federal rules restrict any use of the information to criminally investigate or prosecute any alcohol or drug abuse patient.[facility] CenterIn the event this information is protected by the Federal Confidentiality of Alcohol and Drug Abuse Patient Records regulations: The Federal rules restrict any use of the information to criminally investigate or prosecute any alcohol or drug abuse patient.[facility] CenterIn the event this information is protected by the Federal Confidentiality of Alcohol and Drug Abuse Patient Records regulations: The Federal rules restrict any use of the information to criminally investigate or prosecute any alcohol or drug abuse patient.[facility] CenterIn the event this information is protected by the Federal Confidentiality of Alcohol and Drug Abuse Patient Records regulations: The Federal rules restrict any use of the information to criminally investigate or prosecute any alcohol or drug abuse patient.[facility] CenterIn the event this information is protected by the Federal Confidentiality of Alcohol and Drug Abuse Patient Records regulations: The Federal rules restrict any use of the information to criminally investigate or prosecute any alcohol or drug abuse patient.[facility] CenterIn the event this information is protected by the Federal Confidentiality of Alcohol and Drug Abuse Patient Records regulations: The Federal rules restrict any use of the information to criminally investigate or prosecute any alcohol or drug abuse patient.[facility] CenterIn the event this information is protected by the Federal Confidentiality of Alcohol and Drug Abuse Patient Records regulations: The Federal rules restrict any use of the information to criminally investigate or prosecute any alcohol or drug abuse patient.[facility] CenterIn the event this information is protected by the Federal Confidentiality of Alcohol and Drug Abuse Patient Records regulations: The Federal rules restrict any use of the information to criminally investigate or prosecute any alcohol or drug abuse patient.[facility] CenterIn the event this information is protected by the Federal Confidentiality of Alcohol and Drug Abuse Patient Records regulations: The Federal rules restrict any use of the information to criminally investigate or prosecute any alcohol or drug abuse patient.[facility] CenterIn the event this information is protected by the Federal Confidentiality of Alcohol and Drug Abuse Patient Records regulations: The Federal rules restrict any use of the information to criminally investigate or prosecute any alcohol or drug abuse patient.[facility] CenterIn the event this information is protected by the Federal Confidentiality of Alcohol and Drug Abuse Patient Records regulations: The Federal rules restrict any use of the information to criminally investigate or prosecute any alcohol or drug abuse patient.[facility] CenterIn the event this information is protected by the Federal Confidentiality of Alcohol and Drug Abuse Patient Records regulations: The Federal rules restrict any use of the information to criminally investigate or prosecute any alcohol or drug abuse patient.[facility] CenterIn the event this information is protected by the Federal Confidentiality of Alcohol and Drug Abuse Patient Records regulations: The Federal rules restrict any use of the information to criminally investigate or prosecute any alcohol or drug abuse patient.[facility] CenterIn the event this information is protected by the Federal Confidentiality of Alcohol and Drug Abuse Patient Records regulations: The Federal rules restrict any use of the information to criminally investigate or prosecute any alcohol or drug abuse patient.[facility] CenterIn the event this information is protected by the Federal Confidentiality of Alcohol and Drug Abuse Patient Records regulations: The Federal rules restrict any use of the information to criminally investigate or prosecute any alcohol or drug abuse patient.[facility] CenterIn the event this information is protected by the Federal Confidentiality of Alcohol and Drug Abuse Patient Records regulations: The Federal rules restrict any use of the information to criminally investigate or prosecute any alcohol or drug abuse patient.[facility] CenterIn the event this information is protected by the Federal Confidentiality of Alcohol and Drug Abuse Patient Records regulations: The Federal rules restrict any use of the information to criminally investigate or prosecute any alcohol or drug abuse patient.[facility] CenterIn the event this information is protected by the Federal Confidentiality of Alcohol and Drug Abuse Patient Records regulations: The Federal rules restrict any use of the information to criminally investigate or prosecute any alcohol or drug abuse patient.[facility] CenterIn the event this information is protected by the Federal Confidentiality of Alcohol and Drug Abuse Patient Records regulations: The Federal rules restrict any use of the information to criminally investigate or prosecute any alcohol or drug abuse patient.[facility] CenterIn the event this information is protected by the Federal Confidentiality of Alcohol and Drug Abuse Patient Records regulations: The Federal rules restrict any use of the information to criminally investigate or prosecute any alcohol or drug abuse patient.[facility] CenterIn the event this information is protected by the Federal Confidentiality of Alcohol and Drug Abuse Patient Records regulations: The Federal rules restrict any use of the information to criminally investigate or prosecute any alcohol or drug abuse patient.[facility] CenterIn the event this information is protected by the Federal Confidentiality of Alcohol and Drug Abuse Patient Records regulations: The Federal rules restrict any use of the information to criminally investigate or prosecute any alcohol or drug abuse patient.[facility] CenterIn the event this information is protected by the Federal Confidentiality of Alcohol and Drug Abuse Patient Records regulations: The Federal rules restrict any use of the information to criminally investigate or prosecute any alcohol or drug abuse patient.[facility] CenterIn the event this information is protected by the Federal Confidentiality of Alcohol and Drug Abuse Patient Records regulations: The Federal rules restrict any use of the information to criminally investigate or prosecute any alcohol or drug abuse patient.[facility] CenterIn the event this information is protected by the Federal Confidentiality of Alcohol and Drug Abuse Patient Records regulations: The Federal rules restrict any use of the information to criminally investigate or prosecute any alcohol or drug abuse patient.[facility] CenterIn the event this information is protected by the Federal Confidentiality of Alcohol and Drug Abuse Patient Records regulations: The Federal rules restrict any use of the information to criminally investigate or prosecute any alcohol or drug abuse patient.[facility] CenterIn the event this information is protected by the Federal Confidentiality of Alcohol and Drug Abuse Patient Records regulations: The Federal rules restrict any use of the information to criminally investigate or prosecute any alcohol or drug abuse patient.[facility] CenterIn the event this information is protected by the Federal Confidentiality of Alcohol and Drug Abuse Patient Records regulations: The Federal rules restrict any use of the information to criminally investigate or prosecute any alcohol or drug abuse patient.[facility] CenterIn the event this information is protected by the Federal Confidentiality of Alcohol and Drug Abuse Patient Records regulations: The Federal rules restrict any use of the information to criminally investigate or prosecute any alcohol or drug abuse patient.[facility] CenterIn the event this information is protected by the Federal Confidentiality of Alcohol and Drug Abuse Patient Records regulations: The Federal rules restrict any use of the information to criminally investigate or prosecute any alcohol or drug abuse patient.[facility] Care Teams (unrecognized sec tion and content) Team Status: Active Member Role Status Dates Lito Velazquez MD Primary Care Provider Active Team Status: Active Member Role Status Dates Lito Velazquez MD Primary Care Provider Active St art: August 24, 2024 Jaime Davies RN MSN ANP-C Other Provider Active Start: August 24, 2024 Iveth Ding MD Attending Provider Active Sta rt: August 24, 2024 Team Status: Active Member Role Status Dates Lito Velazquez MD Primary Care Provider Active St art: September 14, 2024 Jaime Davies , RN MSN ANP-C Other Provider Active Start: September 14, 2024 Jassi Fair MD Attending Provider Activ e Start: September 14, 2024 Team Status: Active Member Role Status Dates Lito Velazquez MD Primary Care Provider Active St art: October 18, 2024 Kurt Sánchez MD Attending Provider Active Star t: October 18, 2024 Team Status: Inactive Member Role Status Dates Lito Velazquez MD Primary Care Provider Active St art: October 18, 2024 End: October 18, 2024 Lito Velazquez MD Referring Provider Active Start : October 18, 2024 End: October 18, 2024 Kurt Sánchez MD Attending Provider Active Star t: October 18, 2024 End: October 18, 2024 Floodplain Manager Relationship Specialty Start Date End Date Robles Goldsmith, [address] [place] [address] Referring Obstetrics 10/13/22 Floodplain Manager Relationship Specialty Start Date End Date Robles Goldsmith DO [address] [place] [address] Referring Obstetrics 10/13/22 Floodplain Manager Relationship Specialty Start Date End Date Robles Goldsmith DO [address] [place] [address] Referring Obstetrics 10/13/22 Floodplain Manager Relationship Specialty Start Date End Date Robles Goldsmith DO [address] [place] [address] Referring Obstetrics 10/13/22 Floodplain Manager Relationship Specialty Start Date End Date Robles Goldsmith DO [address] [place] [address] Referring Obstetrics 10/13/22 Floodplain Manager Relationship Specialty Start Date End Date Robles Godlsmith, [address] [place] [address] Referring Obstetrics 10/13/22 Floodplain Manager Relationship Specialty Start Date End Date Robles Goldsmith, [address] [place] [address] Referring Obstetrics 10/13/22 Floodplain Manager Relationship Specialty Start Date End Date Robles Goldsmith, DO [address] [place] [address] Referring Obstetrics 10/13/22 Floodplain Manager Relationship Specialty Start Date End Date Robles Goldsmith, DO [address] [place] [address] Referring Obstetrics 10/13/22 Floodplain Manager Relationship Specialty Start Date End Date Robles Goldsmith, DO [address] [place] [address] Referring Obstetrics 10/13/22 Floodplain Manager Relationship Specialty Start Date End Date Robles Goldsmith, DO [address] [place] [address] Referring Obstetrics 10/13/22 Floodplain Manager Relationship Specialty Start Date End Date Robles Goldsmith, DO [address] [place] [address] Referring Obstetrics 10/13/22 Floodplain Manager Relationship Specialty Start Date End Date Robles Goldsmith, DO [address] [place] [address] Referring Obstetrics 10/13/22 Floodplain Manager Relationship Specialty Start Date End Date Robles Goldsmith Benitez, DO [address] [place] [address] Referring Obstetrics 10/13/22 Floodplain Manager Relationship Specialty Start Date End Date RupalRobles conner Benitez, DO [address] [place] [address] Referring Obstetrics 10/13/22 Floodplain Manager Relationship Specialty Start Date End Date Rupal Robles Marquis, DO [address] [place] [address] Referring Obstetrics 10/13/22 Floodplain Manager Relationship Specialty Start Date End Date RupalRobles conner Benitez, DO [address] [place] [address] Referring Obstetrics 10/13/22 Floodplain Manager Relationship Specialty Start Date End Date Rupal Robles Marquis, DO [address] [place] [address] Referring Obstetrics 10/13/22 Floodplain Manager Relationship Specialty Start Date End Date Robles Goldsmith, DO [address] [place] [address] Referring Obstetrics 10/13/22 Floodplain Manager Relationship Specialty Start Date End Date Lito Velazquez MD [address] [place] [address] PCP - General Internal Medicine 10/05/22 Floodplain Manager Relationship Specialty Start Date End Date Lito Velazquez MD [address] [place] [address] PCP - General Internal Medicine 10/05/22 Floodplain Manager Relationship Specialty Start Date End Date Lito Velazquez MD [address] [place] [address] PCP - General Internal Medicine 02/14/24 Floodplain Manager Relationship Specialty Start Date End Date Robles Goldsmith DO [address] [place] [address] Referring Obstetrics 10/13/22 Floodplain Manager Relationship Specialty Start Date End Date Lito Velazquez MD [address] [place] [address] PCP - General Internal Medicine 10/05/22 Floodplain Manager Relationship Specialty Start Date End Date Robles Goldsmith DO [address] [place] [address] Referring Obstetrics 10/13/22 Floodplain Manager Relationship Specialty Start Date End Date Lito Velazquez MD [address] [place] [address] PCP - General Internal Medicine 10/05/22 Floodplain Manager Relationship Specialty Start Date End Date Lito Velazquez MD [address] [place] [address] PCP - General Internal Medicine 10/05/22 Floodplain Manager Relationship Specialty Start Date End Date Lito Velazquez MD [address] [place] [address] PCP - General Internal Medicine 10/05/22 Floodplain Manager Relationship Specialty Start Date End Date Lito Velazquez MD [address] [place] [address] PCP - General Internal Medicine 10/05/22 Floodplain Manager Relationship Specialty Start Date End Date Lito Velazquez MD [address] [place] [address] PCP - General Internal Medicine 10/05/22 Floodplain Manager Relationship Specialty Start Date End Date Robles Goldsmith DO [address] [place] [address] Referring Obstetrics 10/13/22 [place] [address] [place] [address] Registered Nurse 04/12/24 Floodplain Manager Relationship Specialty Start Date End Date Lito Velazquez MD [address] [place] [address] PCP - General Internal Medicine 10/05/22 Floodplain Manager Relationship Specialty Start Date End Date Lito Velazquez MD [address] [place] [address] PCP - General Internal Medicine 10/05/22 Floodplain Manager Relationship Specialty Start Date End Date Lito Velazquez MD [address] [place] [address] PCP - General Internal Medicine 10/05/22 Floodplain Manager Relationship Specialty Start Date End Date Lito Velazquez MD [address] [place] [address] PCP - General Internal Medicine 10/05/22 Team Status: Inactive Member Role Status Dates Lito Velazquez MD Primary Care Provider Active St art: August 24, 2024 End: August 24, 2024 Jaime Davies , RN MSN ANP-C Attending Provider Act tucker Start: August 24, 2024 End: August 24, 2024 Floodplain Manager Relationship Specialty Start Date End Date Robles Goldsmith DO [address] [place] [address] Referring Obstetrics 10/13/22 [place] [address] [place] [address] Specialty Women Nurse 04/12/24 Floodplain Manager Relationship Specialty Start Date End Date Lito Velazquez MD [address] [place] [address] PCP - General Internal Medicine 10/05/22 Floodplain Manager Relationship Specialty Start Date End Date Lito Velazquez MD [address] [place] [address] PCP - General Internal Medicine 10/05/22 Floodplain Manager Relationship Specialty Start Date End Date Lito Velazquez MD [address] [place] [address] PCP - General Internal Medicine 10/05/22 Floodplain Manager Relationship Specialty Start Date End Date Lito Velazquez MD [address] [place] [address] PCP - General Internal Medicine 10/05/22 Floodplain Manager Relationship Specialty Start Date End Date Lito Velazquez MD [address] [place] [address] PCP - General Internal Medicine 10/05/22 Floodplain Manager Relationship Specialty Start Date End Date Robles Goldsmith DO [address] [place] [address] Referring Obstetrics 10/13/22 Josefina Harris, ARIC [address] [place] [address] Specialty Women Nurse 04/12/24 Floodplain Manager Relationship Specialty Start Date End Date Lito Velazquez MD [address] [place] [address] PCP - General Internal Medicine 10/05/22 Floodplain Manager Relationship Specialty Start Date End Date Lito Velazquez MD [address] [place] [address] PCP - General Internal Medicine 10/05/22 Floodplain Manager Relationship Specialty Start Date End Date Lito Velazquez MD [address] [place] [address] PCP - General Internal Medicine 10/05/22 Floodplain Manager Relationship Specialty Start Date End Date Lito Velazquez MD [address] [place] [address] PCP - General Internal Medicine 10/05/22 Team Status: Inactive Member Role Status Dates Lito Velazquez MD Primary Care Provider Active St art: October 18, 2024 End: October 18, 2024 Kurt Sánchez MD Attending Provider Active Star t: October 18, 2024 End: October 18, 2024 Floodplain Manager Relationship Specialty Start Date End Date Lito Velazquez MD [address] [place] [address] PCP - General Internal Medicine 10/05/22 Floodplain Manager Relationship Specialty Start Date End Date Lito Velazquez MD [address] [place] [address] PCP - General Internal Medicine 10/05/22 Goals [...] BE BASED ON THE PRIMARY CLINICAL RECORDS. [employer] provides no warranty or guarantee of the accuracy or completeness of information in this document.
== END 2024-10-23 20:24 | disposition home or self-care (01) ==
LOC: LAB 20:23
PROVIDERS: PCP Internal Medicine; Visit Provider Obstetrics & Gynecology
DX: Z34.93 Encounter for supervision of normal pregnancy, unspecified, third trimester (principal); Z3A.36 36 weeks gestation of pregnancy
CPT/HCPCS: 87081

== ENCOUNTER 2024-10-24 15:47 | Outpatient (OUT) | payer OTHER, SELFPAY ==
--- OUTSIDE RECORDS SUMMARY | 2017-11-10 05:30 | XMS_ITS | Continuity of Care Document ---
Author Organization [facility] Address [address] [place] [address] Phone Care Team Providers Care Inspecting Machine Adjuster Name Role Phone Lindsey LANIER, Torrie Pena [...] Providers Copied on Encounter OFFICE/OUTPAT IENT VISIT, [facility], [address] [place], [place], [id number], tel:[phone] [facility] Body mass index (BMI) 31.0-31.9, adultMorbid (severe) obesity due to excess calories Lindsey Brownlee. [address] [place] [address], [id number], [place]. tel:[phone] [facility], [address] [place], [place], [id number], tel:[phone] [facility] Morbid (severe) obesity due to excess caloriesBody mass index (BMI) 31.0-31.9, adult Landon Stafford. [address] [place], [place], [id number], [place]. tel:[phone] OFFICE/OUTPAT IENT VISIT, [facility], [address] [place], [place], [id number], [place] tel:[phone] [facility] adipex # 3 (chief complaint) Body mass index (BMI) 32.0-32.9, adultMorbid (severe) obesity due to excess caloriesBody mass index (BMI) 33.0-33.9, adult Landon Stafford. [address] [place] [address], [id number], [place]. tel:[phone] OFFICE/OUTPAT IENT VISIT, [facility], [address] [place] [address], [id number], [place] tel:[phone] [facility] Adipex (chief complaint) Body mass index (BMI) 34.0-34.9, adultMorbid (severe) obesity due to excess caloriesBody mass index (BMI) 32.0-32.9, adult Landon Stafford. [address] [place], [place], [id number], [place]. tel:[phone] OFFICE/OUTPAT IENT VISIT, [facility], [address] [place], [place], [id number], [place] tel:[phone] [facility] Body mass index (BMI) 34.0-34.9, adultMorbid (severe) obesity due to excess calories Landon Stafford. [address] [place], [place], [id number], [place]. tel:[phone] [facility], [address] [place] [address], [id number], [place] tel:[phone] [facility] wt loss (chief complaint)a llergies (chief complaint) Abnormal weight gainMorbid (severe) obesity due to excess caloriesBody mass index (BMI) 34.0-34.9, adultAllergy, unspecified, initial encounter Landon Stafford. [address] [place], [place], [id number], [place]. tel:[phone] [facility], [address] [place] [address], [id number], [place] tel:[phone] [facility] No Information Dixon Charles. [address] [place], [place], [id number], [place]. tel:[phone] [facility], [address] [place] [address], [id number], [place] tel:[phone] [facility] No Information Dixon Charles. [address] [place], [place], [id number], [place]. tel:[phone] OFFICE/OUTPAT IENT VISIT, [facility], [address] [place], [place], [id number], [place] tel:[phone] [facility] infected toe (chief complaint)i mmunization (chief complaint) Ingrown nail Landon Stafford. [address] [place] [address], [id number], [place]. tel:[phone] Family History Family Member Type Diagnosis Age [...] in the past. Pt sees a in [place] for [facility] practice. [place] allergies The patient pres [...] Mental Status Date Cognitive Assessment Orientation - [place] ed to time, place, person, situation.Normal Orientation Patient Care Teams Name Effective Dates (start - stop) Status Members No Information
--- OUTSIDE RECORDS SUMMARY | 2024-10-11 14:00 | XMS_ITS | Encounter Summary ---
Author Organization [facility] tem Address [id number] [address] [place] [address] Care Team Providers Care Complex Manager Name Role Phone Unavailable Primary Care Provider Unavailabl e Reason for Visit * Reason Comments GDMA2 Encounter Details Date Type Department Care Team (Late st Contact Info) Description 10/11/2024 2:00 PM EDT Office Visit Maternal- Medicine at [facility] [address] [place] [phone] Siria Rebolledo, EXPELLER OPERATOR-POSTDOCTORAL SCHOLAR [address] [place] [address] Insulin controlled gestational diabetes mellitus (GDM) in [...] chest pain. +FM. She is beingfollowed at [facility] due to GDMA2. States she [...] 2 units., Disp: 15 mL, Rfl: 2 [id number]-vlkig acid ( 19) 29 mg iron- 1 mg tablet,chewable, Chew 1 tablet and swallow in the morning., Disp: , Rfl: LABS: No results found for: GLUF , MICROALBUR , LDLCALC , CREATININE No results found for: TSH , T3 , TOTALT4 , THYROIDAB No results found for: [id number] No results found for: CREATININE , BUN [...] by e-mail to: or by fax to: [phone] TIME OF CONSULTATION: 30 minutes with the patient, >50% in discussion and counseling, coordination of care which was [id number], review of records and communication back to referring provider. CARLOS Ford 10/11/24 1444 documented in this encounter Plan of Treatment Not on file documented as of this encounter Visit Diagnoses Diagnosis Insulin controlled gestational diabetes mellitus (GDM) in third trimester- Primary documented in this encounter
--- OUTSIDE RECORDS SUMMARY | 2024-10-16 09:00 | XMS_ITS | Encounter Summary ---
Author Organization [facility] Address [address] [place] [address] Care Team Providers Care Field Merchandiser Name Role Phone Omer Velazquez MD Primary Care Provider [phone] Reason for Visit * Reason Comments Routine Visit Encounter Details Date Type Department Care Team (Late st Contact Info) Description 10/16/2024 9:00 AM EDT Routine [facility] [place] [facility] [address] [place] [phone] Saravanan Ahumada DO [address] [place] [address] induced hypertension, antepartum (HHS-HCC) (Primary Dx); Third trimester ([facility]); 35 weeks gestation of ([facility]) Social History Tobacco Use Types Packs/Day Years [...] Progress Notes * Selina Denson NP - 10/16/2024 9:00 AM EDT Reason for Appointment: Patient ID: Lisas Rivas is a 29 y.o. female who [...] Franklin Atrial fibrillation Father Franklin COPD Father Franlkin Hypertension Father Franklin Hyperlipidemia Father Franklin Atrial [...] nursing note reviewed. Exam conducted with a tube handler present. Vitals: Estimated body mass index is 40.61 kg/m?? as calculated from the following: Height as of 07/18/24: 5' 3 . Weight as of this encounter: 229 lb 4 oz. BP: 120/86 Patient's last menstrual period was 02/13/2024 (approximate). ASSESSMENT & PLAN ICD-10-CM 1. Third trimester ([facility]) Z34.93 POCT urinalysis dipstick manually resulted 2. 35 weeks gestation of ([facility]) Z3A.35 Return OB: Patient presents today for [...] edema. She continues to follow closely with [facility] and transmits glucose weekly. [facility] recommends pre-eclampsia labs every 2 weeks [...] Visit [facility] [address] [place] [address] Saravanan Ahumada DO [address] [place] [address] 07/24/2025 9:15 AM EDT Office Visit [facility] [address] [place] [address] Scheduled Orders Name Type Priority Associated Diagnoses [...] as of this encounter Care Teams Field Merchandiser Relationship Specialty Start Date End Date Omer Velazquez MD [address] [facility] [address] [place] [address] PCP - General Internal Medicine 10/05/22 documented as of this encounter
--- OUTSIDE RECORDS SUMMARY | 2024-10-23 08:30 | XMS_ITS | Encounter Summary ---
Author Organization [facility] tem Address [id number] [address] [place] [address] Care Team Providers Care Costume Director Name Role Phone Unavailable Primary Care Provider Unavailabl e Reason for Visit * Reason Comments GDMA2 Encounter Details Date Type Department Care Team (Late st Contact Info) Description 10/23/2024 8:30 AM EDT Office Visit Maternal- Medicine at [facility] [address] [place] [phone] Vy Pemberton MD [address] [facility], [address] [place] [address] 36 weeks gestation of (Primary Dx); Gestational diabetes requiring insulin; Pre-eclampsia in third trimester; Non-sustained ventricular tachycardia ([facility]) Social History Tobacco Use Types Packs/Day Years [...] in this encounter Progress Notes * Samina Hayowod RN - 10/23/2024 8:30 AM EDT Headache/epigastric [...] 2 units., Disp: 15 mL, Rfl: 2 [id number] acid ( 19) 29 mg iron- 1 mg tablet,chewable, Chew 1 tablet and swallow in the morning., Disp: , Rfl: LABS: No results found for: GLUF , MICROALBUR , LDLCALC , CREATININE No results found for: TSH , T3 , TOTALT4 , THYROIDAB No results found for: [id number] No results found for: CREATININE , BUN [...] records she may have to deliver at [facility] and require telemetry as we also [...] at a tertiary care center such as [facility] and telemetry during labor and for [...] Cardiology. She has beenprescribed propranolol from the chemistry account manager. Give half the dose of long-acting insulin the night before delivery All questions and concerns that Dr. Ahumada had were answered Vy Pemberton MD, FACOG (she/hers) Maternal- Medicine [facility] [address] [facility] 1[address] [place] [address] documented in this encounter Plan of Treatment Not on file documented as of this encounter Visit Diagnoses Diagnosis 36 weeks gestation of - Primary Gestational diabetes requiring insulin Abnormal maternal glucose tolerance, complicating , childbirth, or the puerperium, unspecified as to episode of care Pre-eclampsia in third trimester Non-sustained ventricular tachycardia ([facility]) documented in this encounter
--- OUTSIDE RECORDS SUMMARY | 2024-10-23 13:30 | XMS_ITS | Encounter Summary ---
Author Organization [facility] Address [address] [place] [address] Care Team Providers Care Placing Judge Name Role Phone Omer Velazquez MD Primary Care Provider [phone] Reason for Visit * Reason Comments Routine Visit Encounter Details Date Type Department Care Team (Late st Contact Info) Description 10/23/2024 1:30 PM EDT Routine [facility] [address] [place] [phone] Saravanan Ahumada DO [address] [place] [address] Third trimester ([facility] 36 weeks gestation of ([facility]); induced hypertension, antepartum ([facility]) Social History Tobacco Use Types Packs/Day Years [...] Medical History: Diagnosis Date Anxiety Asthma (HCC) LOAR (generalized anxiety disorder) GERD (gastroesophageal reflux disease) [...] nursing note reviewed. Exam conducted with a schedule maker present. Vitals: Estimated body mass index is 40.39 kg/m?? as calculated from the following: Height as of 07/18/24: 5' 3 . Weight as of this encounter: 228 lb. BP: 136/90 Patient's last menstrual period was 02/13/2024 (approximate). ASSESSMENT & PLAN (Z34.93) Third trimester ([facility]) Plan: POCT urinalysis dipstick manually resulted, CULTURE, GROUP B STREP WITH SUSCEPTIBLITY, CULTURE, GROUP B STREP WITH SUSCEPTIBLITY (Z3A.36) 36 weeks gestation of ([facility]) Plan: Creatinine, Protein, urine, 24 hour, Pt and ptt, CBC and differential, Uric acid, Lactate dehydrogenase, ALT, AST, BUN, Creatinine, Protein, urine, 24 hour, Pt and ptt, CBC and differential, Uric acid, Lactate dehydrogenase, ALT, AST, BUN (O13.9) induced hypertension, antepartum ([facility]) Plan: Creatinine, Protein, urine, 24 hour, [...] Discussed with patient call from Specialist at [facility]. Patient is to deliver at [facility] due to recent cardiac workup. Patient will continue NST/BPP's locally and will delivery with [facility]. Nursing will reach out to [facility] and work on transfer with Judo Instructor. Patient to return to clinic for 6 [...] AM EDT Visit [facility] [place] [address] [place] [place] [phone] Saravanan Ahumada DO [address] [place] [address] 07/24/2025 9:15 AM EDT Office Visit [facility]EENA Hassan [facility] [address] [place] [phone] Scheduled Orders Name Type Priority Associated Diagnoses Orde r Schedule CULTURE, GROUP B STREP WITH SUSCEPTIBLITY Lab Routine Third trimester ([facility]) Expected: 10/23/2024, Expires: 10/23/2025 Creatinine Lab Routine 36 weeks gestation of ([facility]) induced hypertension, antepartum ([facility]) Expected: 10/23/2024 (Approximate), Expires: 10/23/2025 Protein, urine, 24 hour Lab Routine 36 weeks gestation of ([facility]) induced hypertension, antepartum ([facility]) Expected: 10/23/2024 (Approximate), Expires: 10/23/2025 Pt and ptt Lab Routine 36 weeks gestation of ([facility]) induced hypertension, antepartum ([facility]) Expected: 10/23/2024, Expires: 10/23/2025 CBC and differential Lab Routine 36 weeks gestation of ([facility]) induced hypertension, antepartum ([facility]) Expected: 10/23/2024 (Approximate), Expires: 10/23/2025 Uric acid Lab Routine 36 weeks gestation of ([facility]) induced hypertension, antepartum ([facility]) Expected: 10/23/2024 (Approximate), Expires: 10/23/2025 Lactate dehydrogenase Lab Routine 36 weeks gestation of ([facility]) induced hypertension, antepartum ([facility]) Expected: 10/23/2024, Expires: 10/23/2025 ALT Lab Routine 36 weeks gestation of ([facility]) induced hypertension, antepartum ([facility]) Expected: 10/23/2024 (Approximate), Expires: 10/23/2025 AST Lab Routine 36 weeks gestation of ([facility]) induced hypertension, antepartum ([facility]) Expected: 10/23/2024 (Approximate), Expires: 10/23/2025 BUN Lab Routine 36 weeks gestation of ([facility]) induced hypertension, antepartum ([facility]) Expected: 10/23/2024, Expires: 10/23/2025 documented as of this encounter Goals Goal Patient Goal Type Associated Problems Recent Progress Patient-Stated? Author Reminders Care Plan OB Reminders No Open Scheduling, Background documented as of this encounter Procedures Procedure Name Priority Date/Time Associated Diagnosis Comments POCT URINALYSIS DIPSTICK Routine 10/23/2024 1:58 PM EDT Third trimester ([facility]) documented in this encounter Results * [...] this encounter Visit Diagnoses Diagnosis Third trimester ([facility]) state, incidental 36 weeks gestation of ([facility]) induced hypertension, antepartum ([facility]) Transient hypertension of , antepartum documented in this encounter Additional Health Concerns Active Problems Noted Date Diagnosed Date OB Reminders 04/30/2024 documented as of this encounter Care Teams Placing Judge Relationship Specialty Start Date End Date Omer Velazquez MD [address] [place] [address] PCP - General Internal Medicine 10/05/22 documented as of this encounter
--- OUTSIDE RECORDS SUMMARY | 2024-10-24 15:49 | XMS_ITS | Encounter Summary ---
Author Organization [facility] Address [address] [place] [address] Care Team Providers Care Commercial Sheet Metal Foreman Name Role Phone Omer Velazquez MD Primary Care Provider [phone] Encounter Details Date Type Department Care Team (Late st Contact Info) Description 05/19/2024 Telephone [facility] [address] [place] [address] Gaye Hollis LPN [address] [phone] Social History Tobacco Use Types Packs/Day Years [...] Info) Description 12/11/2024 8:50 AM EDT Visit [facility] [address] [place] [address] Saravanan Ahumada DO [address] [facility] [place] [address] 07/24/2025 9:15 AM EDT Office Visit [facility] Internal [facility] [address] [place] [phone] Scheduled Orders Name Type Priority Associated Diagnoses [...] as of this encounter Care Teams Commercial Sheet Metal Foreman Relationship Specialty Start Date End Date Omer Velazquez MD [address] [place] [address] PCP - General Internal Medicine 10/05/22 documented as of this encounter
--- OUTSIDE RECORDS SUMMARY | 2024-10-24 15:49 | XMS_ITS | Encounter Summary ---
Author Organization [facility] Address [address] [id number] Care Team Providers Care Tower Equipment Repairer Name Role Phone Robles Goldsmith DO Unavailable [phone] Josefina Harris RN Unavailable [phone] Source Comments In the event this information is protected by the Federal Confidentiality of Alcohol and Drug AbusePatient Records regulations: The Federal rules restrict any use of the information to criminally investigate or prosecute any alcohol or drug abuse patient.[facility] Encounter Details Date Type Department Care Team (Late st Contact Info) Description 06/18/2023 Patient [facility] [address] [place] [address] Fina Davalos, [address] [address] Appointment scheduling Social History Tobacco [...] on filedocumented in this encounter Care Teams Tower Equipment Repairer Relationship Specialty Start Date End Date Robles Goldsmith DO [address] [facility] [address] [place] [address] Referring Obstetrics 10/13/22 [place] [address] [place] [address] Specialty Hotel Maid 04/12/24 documented as of this encounter
--- OUTSIDE RECORDS SUMMARY | 2024-10-24 15:49 | XMS_ITS | Encounter Summary ---
Author Organization [facility] Address [address] [place] [id number] Care Team Providers Care Beater Out Leveling Machine Name Role Phone Robles Goldsmith DO Unavailable [phone] Josefina Harris RN Unavailable [phone] Source Comments In the event this information is protected by the Federal Confidentiality of Alcohol and Drug AbusePatient Records regulations: The Federal rules restrict any use of the information to criminally investigate or prosecute any alcohol or drug abuse patient.[facility] Encounter Details Date Type Department Care Team (Latest Contact Info) Description 05/25/2023 Patient Msg Reproductive Endocrinology Infertility [address] [place] [address] Shaina Parr MD [address] [place], [place] [id number] Appointment Request Social History Tobacco Use Types [...] on filedocumented in this encounter Care Teams Beater Out Leveling Machine Relationship Specialty Start Date End Date Robles Goldsmith DO [address] [facility] [address] [place] [address] Referring Obstetrics 10/13/22 [place] [address] [place] [address] Specialty Supervisor [facility] 04/12/24 documented as of this encounter
--- OUTSIDE RECORDS SUMMARY | 2024-10-24 15:49 | XMS_ITS | Clinical Summary ---
Author Organization [facility] Address [address] [place] [address] Care Team Providers Care President + Publisher Name Role Phone Lito Guerrero MD Primary Care Provider [phone] Allergies No known active allergies Medications cholecalciferol [...] Encounters Date Type Department Care Team Description 10/24/2024 Telephone [facility] [address] [place] [address] Kayla Ashley LPN 10/23/2024 1:30 PM [place] [address] Negar Ahumada, Third trimester ([facility]); 36 weeks gestation of ([facility]); induced hypertension, antepartum ([facility]) 10/23/2024 [place] [address] Negar Ahumada, 10/17/2024 Clinisync Result Encounter NOMS External Department Unsolicited Negar Ahumada, 10/16/2024 9:00 AM EDT Routine [facility] [address] [place] [address] Negar Ahumada DO induced hypertension, antepartum ([facility]) (Primary Dx); Third trimester ([facility]); 35 weeks gestation of ([facility]) 10/16/2024 Telephone [facility] [address] [place] [address] Symone Hunter MA 10/16/2024 Clinisync Result Encounter NOMS External Department Unsolicited Provider, Generic External Data 10/16/2024 Bamboo flowsheet [facility] [address] [place] [address] Negar Ahumada, 10/12/2024 [place] [address] Negar Ahumada, 10/11/2024 Clinisync Result Encounter NOMS External Department Unsolicited Negar Ahumada, 10/11/2024 [place] [phone] Negar Ahumada, 10/09/2024 9:00 AM [place] [address] Negar Ahumada, Third trimester ([facility]); 34 weeks gestation of ([facility]); Herpes simplex virus type 1 (HSV-1) dermatitis; Insulin controlled gestational diabetes mellitus (GDM) during , antepartum ([facility]) 10/09/2024 [place] [address] Negar Ahumada, 10/04/2024 Clinisync Result Encounter NOMS External Department Unsolicited Provider, Generic External Data 10/02/2024 11:00 AM [place] [address] Negar Ahumada DO Herpes simplex (Primary Dx); 33 weeks gestation of ([facility]); Encounter for routine care ([facility]); Third trimester ([facility]) 10/02/2024 10:30 AM EDT [place] [phone] History of gestational diabetes 09/27/2024 Clinisync Result Encounter NOMS External Department Unsolicited Provider, Generic External Data 09/25/2024 1:00 PM [place] [phone] Negar Ahumada, Third trimester ([facility]); Insulin controlled gestational diabetes mellitus (GDM) during , antepartum ([facility]); 32 weeks gestation of ([facility]) 09/25/2024 [place] [address] Negar Ahumada, 09/25/2024 Bamboo flowsheet [facility] [address] [facility] [place] [address] Negar Ahumada, DO 09/20/2024 Telephone [facility] [address] [place] [phone] [place], [place] 09/14/2024 Clinisync Result Encounter NOMS External Department Unsolicited Provider, Generic External Data 09/13/2024 11:30 AM EDT Routine [facility] [place] [address] Negar Ahumada, History of gestational diabetes (Primary Dx); Third trimester ([facility]); 31 weeks gestation of ([facility]) 09/13/2024 Bamboo flowsheet [facility] [address] [place] [address] [place] [address] Negar Ahumada, 09/12/2024 Clinisync Result Encounter NOMS External Department Unsolicited Negar Ahumada, 09/12/2024 Telephone [facility] [address] [place] [address] [place] [address] Gaye Hollis LPN 09/06/2024 1:30 PM EDT Ancillary Procedure [facility] OBGYLynnette [place] [address] Gestational diabetes mellitus (GDM), antepartum, gestational diabetes method of control unspecified ([facility]) 08/30/2024 11:20 AM EDT Routine [facility] [place] [address] Negar Ahumada, 28 weeks gestation of ([facility]); Third trimester ([facility]); Gestational diabetes mellitus (GDM), antepartum, gestational diabetes method of control unspecified ([facility]); Herpes simplex virus type 1 (HSV-1) dermatitis 08/30/2024 Bamboo flowsheet [facility] [address] [facility] [place] [address] Negar Ahumada DO 08/25/2024 Telephone [facility] [address] [facility] [place] [address] Symone Hunter MA 08/24/2024 External Result Encounter NOMS External Department Unsolicited Jaime Mccarthy NP 08/23/2024 Clinisync Result Encounter NOMS External Department Unsolicited Provider, Generic External Data 08/23/2024 Travel 08/16/2024 8:30 AM EDT Routine [facility] [address] [facility] [place] [address] Rupal Patel PA Second trimester ([facility]); 26 weeks gestation of ([facility]) 08/16/2024 Bamboo flowsheet [facility] [address] [facility] [place] [address] Rupal Patel PA 08/14/2024 Telephone [facility] [address] [place] [address] Lito Guerrero MD Med Refill 08/09/2024 Travel 08/07/2024 Clinisync Result Encounter NOMS External Department Unsolicited Provider, Generic External Data from Last 3 Months Immunizations Immunization Administration Dates Next Due DTP 1995,1995 DTaP, Unspecified 08/10/2000,08/04/1996,03/17/19 96 HPV 9-Valent 08/12/2015,04/10/2015,12/05/2014 Hep B, Adolescent or Pediatric 03/17/1996,1995,1995 HiB, unspecified 08/04/1996, 6,1995,06/07 IPV 08/10/2000 Influenza, seasonal, injecta ble, preservative free 01/30/2015 MMR 05/04/2023,08/10/2000,04/21/1996 Meningococcal MCV4P 08/12/2006 Novel [id number], preservative-free 02/13/2009 OPV 03/17/1996,1995,1995 Tdap 06/26/2022 Varicella [...] Pressure 136/90 10/23/2024 1:52 PM EDT Pulse 90 07/18/2024 9:20 AM EDT Temperature - - Respiratory Rate - - Oxygen Saturation 98% 07/18/2024 9:20 AM EDT Inhaled Oxygen Concentration - - Weight 103 kg (228 lb) 10/23/2024 1:52 PM EDT Height 160 cm (5' 3 ) 07/18/2024 9:20 AM EDT Body Mass Index 40.39 07/18/2024 9:20 AM EDT Plan of Treatment Upcoming Encounters Date Type Department Care Team (Late st Contact Info) Description 12/11/2024 8:50 AM EDT Visit [facility] [place] [facility] [address] [facility] [place] [address] Negar Ahumada DO [address] [facility] [place] [address] 07/24/2025 9:15 AM EDT Office Visit [facility] [address] [place] [address] Health Maintenance Due Date Last Done Comments Influenza Vaccine (#1) 2024 01/30/2015 Goals Goal Patient Goal Type Associated Problems Recent Progress Patient-Stated? Author Reminders Care Plan OB Reminders No Open Scheduling, Background Procedures Procedure Name Priority Date/Time Associated Diagnosis Comments POCT URINALYSIS DIPSTICK Routine 10/23/2024 1:58 PM EDT Third trimester ([facility]) US OB BPP W NON-STRESS 10/17/2024 4:59 [...] Routine 10/16/2024 9:12 AM EDT Third trimester ([facility]) US OB BPP W NON-STRESS 10/11/2024 8:42 AM EDT POCT URINALYSIS DIPSTICK Routine 10/09/2024 9:27 AM EDT Third trimester ([facility]) US OB BPP W NON-STRESS 10/04/2024 7:13 AM EDT POCT URINALYSIS DIPSTICK Routine 10/02/2024 11:23 AM EDT 33 weeks gestation of ([facility]) Encounter for routine care ([facility]) Third trimester ([facility]) US OB FOLLOW UP TRANSABDOMINAL APPROACH Routine 10/02/2024 11:00 AM EDT History of gestational diabetes US OB BPP W NON-STRESS 09/27/2024 5:08 PM EDT POCT URINALYSIS DIPSTICK Routine 09/25/2024 1:34 PM EDT Third trimester ([facility]) TBH TOTAL PROTEIN 24 HOUR URINE Routine 09/14/2024 9:30 AM EDT POCT URINALYSIS DIPSTICK Routine 09/13/2024 11:56 AM EDT Third trimester ([facility]) MHPT FIBRINOGEN Routine 09/12/2024 5:24 PM EDT [...] Routine 5:24 PM EDT TBH UA (CLEAN/CATCH) DAIRY HUSBANDRY WORKER/MICRO IF IND. Routine 09/12/2024 4:30 PM EDT US OB FOLLOW UP TRANSABDOMINAL APPROACH Routine 09/06/2024 1:55 PM EDT Gestational diabetes mellitus (GDM), antepartum, gestational diabetes method of control unspecified ([facility]) TRANSTHORACIC ECHO (TTE) COMPLETE 08/24/2024 12:39 PM EDT GLUCOSE 1 HOUR Routine 08/23/2024 10:49 AM EDT ALL CBC WITH AUTO DIFF Routine 10:49 AM EDT POCT URINALYSIS DIPSTICK Routine 08/16/2024 8:45 AM EDT Second trimester ([facility]) US OB INCOMPLETE ANATOMY 08/07/2024 9:48 AM EDT from Last 3 Months Results * POCT urinalysis dipstick manually resulted (10/23/2024 1:58 PM EDT) Only the most recent of7 resultswithin the time period is included. Color, [...] - Positive Urine 10/23/2024 1:58 PM EDT us Negar Ahumada DO POINT OF CARE TEST ENTER/EDIT OR DERABLES Final Result * US OB BPP W NON-STRESS (10/17/2024 4:59 PM EDT) Only the most recent of4 resultswithin the time period is included. Anatomical Region Laterality Modality Other 10/17/2024 4:59 PM EDT Narrative 10/17/2024 5:02 PM EDT The [address] [address] Ultrasound Report Signed Patient: LISSA ORJAS MR#: [id number] : 1995 Acct:[id number] Age/Sex: 29 / F ADM Date: 10/17/24 Loc: [facility] 251-[address]: Negar Ahumada D.O. Ordering Physician: Negar Ahumada D.O. Date of Service: 10/17/24 Procedure(s): US OB BPP w non-stress Accession Number(s): [id number] cc: Negar Ahumada D.O.; LITO GUERRERO [place] [phone] Patient Name: LISSA ROJAS MRN: [id number] date: 1995 Sex: F Assigned Patient Location: [facility] Current Patient Location: [facility] Accession/Order Number: [id number] Exam Date: 10/17/2024 16:58 Report Date: 10/17/2024 [...] Barrett M.D. 10/17/2024 4:59 PM Dictation Location: [place] [address] Electronically authenticated by: [id number] Y Date: 10/17/2024 16:59 Dictated By: Kevin Barrett D.O. Signed By: 10/17/24 1702 DD/ 1659 TD/TT: Sheet Rock Installation Helper: Procedure Note Radiology, Radiologist, MD - 10/17/2024 [place] [id number] Ultrasound Report Signed Patient: LISSA ROJAS FMR#: [id number] : 1995Acct:[id number] Age/Sex: 29 / FADM Date: 10/17/24 Loc: [facility] 251-[address]: Negar Ahumada D.O. Ordering Physician: Negar Ahumada D.O. Date of Service: 10/17/24 Procedure(s): US OB BPP w non-stress Accession Number(s): [id number] cc: Negar Ahumada D.O.; LITO GUERRERO [place] [phone] Patient Name: LISSA ROJAS MRN: [facility]:[id number] date: 1995 Sex: F Assigned Patient Location: [facility] Current Patient Location: [facility] Accession/Order Number: [id number] Exam Date: 10/17/2024 16:58 Report Date: 10/17/2024 [...] Barrett M.D. 10/17/2024 4:59 PM Dictation Location: [place] [address] Electronically authenticated by: [id number] Y Date: 6:59 Dictated By: Kevin Barrett D.O. Signed By:10/17/241701 DD/ 58 TD/TT: Sheet Rock Installation Helper: us Negar Ahumada DO [facility] Final Result * (ABNORMAL) TBH CREATININE (10/16/2024 9:48 AM EDT) Only the most recent of2 resultswithin the time period is included. CREATININE 0.52(L) 0.55 - 1.02 mg/dL TBH TBH EGFR-AF DANISH >60 >=60 mL/min/1.7 3m 2 TBH TBH EGFR-NON AF DANISH >60 >=60 mL/min/1.7 3m 2 TBH 10/16/2024 9:48 AM EDT 10/16/2024 9:50 AM EDT Narrative [facility] - 10/16/2024 11:27 AM EDT Generic External Data Provider [facility] F inal Result Performing Organization Address [facility] de Phone Number HARRY [facility] * SRMCOH PROTHROMBIN TIME INR W/O [...] NP [facility] Final Result Performing Organization Address [facility] Phone Number [facility] * (ABNORMAL) [facility] AST (10/16/2024 9:48 AM EDT) Only the most recent of2 resultswithin the time period is included. ASPARTATE AMINO TRANSFERASE 12(L) 15 - 37 U/L TB 10/16/2024 9:48 AM EDT 10/16/2024 9:50 AM EDT Narrative [facility] - 10/16/2024 11:27 AM EDT Generic External Data Provider [facility] F inal Result Performing Organization Address [facility] de Phone Number [facility] * [facility] APTT (10/16/2024 9:48 AM EDT) Only the most recent of2 resultswithin the time period is included. PARTIAL THROMBOPLASTIN TIME 25.4 22.3 - 36.2 sec TB 10/16/2024 9:48 AM EDT 10/16/2024 9:50 AM EDT Narrative [facility] - 10/16/2024 10:10 AM EDT Selina Denson NP [facility] Final Result Performing Organization Address [facility] Co de Phone Number [facility] * ALL URIC ACID (10/16/2024 9:48 AM EDT) Only the most recent of2 resultswithin the time period is included. URIC ACID 3.5 2.6 - 6.0 mg/dL TB 10/16/2024 9:48 AM EDT 10/16/2024 9:50 AM EDT Narrative [facility] - 10/16/2024 11:27 AM EDT Generic External Data Provider [facility] F inal Result Performing Organization Address [facility] de Phone Number [facility] * ALL LDH (10/16/2024 9:48 AM EDT) LACTATE DEHYDROGENASE 146 81 - 234 U/L TB 10/16/2024 9:48 AM EDT 10/16/2024 9:50 AM EDT Narrative [facility] - 10/16/2024 11:27 AM EDT Generic External Data Provider [facility] F inal Result Performing Organization Address [facility] de Phone Number [facility] * (ABNORMAL) ALL CBC WITH AUTO DIFF (10/16/2024 9:48 AM EDT) Only the most recent of3 resultswithin the time period is included. TBH WBC 9.6 4.0 - 11.0 10 [...] us Selina Denson NP [facility] Final Result [facility] * (ABNORMAL) ALL BUN (10/16/2024 9:48 AM EDT) Only the most recent of2 resultswithin the time period is included. BLOOD UREA NITROGEN 6.0(L) 7.0 - 18.0 mg/dL TBH 10/16/2024 9:48 AM EDT 10/16/2024 9:50 AM EDT Narrative HARRY - 10/16/2024 11:27 AM EDT us Generic External Data Provider HARRY Bowen cesar Result HARRY [facility] * US OB follow up transabdominal [...] BY: Navjot Salvador MD us Selina Denson PETROGRAPHY TEACHER IMG OB US PROCEDURES Final Re sult * (ABNORMAL) TBH TOTAL PROTEIN 24 HOUR URINE (09/14/2024 9:30 AM EDT) TOTAL PROTEIN URINE RANDOM 16.8(H) <=11.9 mg/dL TBH TOTAL VOLUME 24 HOUR URINE 2,500 mL/24hr TBH TBH TOTAL PROTEIN 24 HOUR URINE 420.0(H) <=149.1 mg/24hr TBH 09/14/2024 9:30 AM EDT 09/14/2024 10:23 AM EDT Narrative [facility] - 09/14/2024 11:15 AM EDT us Negar Ahumada DO [facility] Final Result [facility] TB * (ABNORMAL) MHPT FIBRINOGEN (09/12/2024 5:24 PM EDT) FIBRINOGEN 425(H) 200 - 400 mg/dL TBH 09/12/2024 5:24 PM EDT 09/12/2024 5:33 PM EDT Narrative [facility] - 09/12/2024 6:00 PM EDT Negar Zita DO [facility] Final Result Performing Organization Address [facility]/ZIP Co de Phone Number [facility] * [facility] ALT (09/12/2024 5:24 PM EDT) ALANINE AMINOTRANSFERASE 23 14 - 59 U/L TBH 09/12/2024 5:24 PM EDT 09/12/2024 5:33 PM EDT Narrative [facility] - 09/12/2024 5:42 PM EDT Negar Zita DO [facility] Final Result Performing Organization Address [facility] Co de Phone Number [facility] * (ABNORMAL) TBH UA (CLEAN/CATCH) DAIRY HUSBANDRY WORKER/MICRO IF IND. (09/12/2024 4:30 PM EDT) COLOR [...] Narrative [facility] - 09/12/2024 5:12 PM EDT Negar Luo DO LORNE[facility] Final Result Performing Organization Address [facility] Co de Phone Number [facility] * Transthoracic echo (TTE) complete (08/24/2024 12:39 PM EDT) Anatomical Region Laterality Modality Heart Ultrasound 08/24/2024 12:3 9 PM EDT Narrative 08/24/2024 6:36 PM EDT [facility] Main [place] [address] [place] [address] Echocardiogram Signed Patient: Lissa Rojas MR#: [id number] : 1995 Acct:[id number] Age/Sex: 29 / F ADM Date: 08/24/24 Loc: Room: Type: [facility] Attending Dr: Jaime Mccarthy RN, MSN, [...] 1239 Signed By: Iveth Ding MD 08/24/24 8825 Procedure Note Iveth Ding MD - 08/24/2024 [facility] [place] [address] Echocardiogram Signed Patient: Lissa Rojas FMR#: [id number] : 1995Acct:[id number] Age/Sex: Date: 08/24/24 Loc: Room:Type: [facility] Attending Dr: Jaiem Mccarthy RN, MSN, ANP-C Ordering Provider: JAIME MCCARTHY RN, MSN Date of Service: 08/24/24/ ECH/ECH echo transthoracic: Palpitations.Murmur. Copies to: MD SAMSON Mckeon MICHELE L RN, GREY Bowen 12:39 PM [facility] 1995 Gender: Female (MM/DD/YYYY) Age: 29 Years Ordering Physician: Jaime Mccarthy Height: 62.99 in Weight: 225.004 lb Performed By: Jailene Abbasi [facility] BSA: 2.03 m2 HR: 93 bpm Reason [...] on: 08/24/2024,: : 6:35 PM: Transcribed By: SCTucker Performed At: 08/24/24 1239 Signed By: Iveth Ding MD 08/24/24 1835 us Jaime Mccarthy PETROGRAPHY TEACHER CV ECHO PROCEDURES Final Res ult * (ABNORMAL) GLUCOSE 1 HOUR (08/23/2024 10:49 AM EDT) GLUCOSE 1 HOUR 181(H) <130 mg/dL TBH 08/23/2024 10:4 9 AM EDT 08/23/2024 10:51 AM EDT Narrative [facility] - 08/23/2024 11:33 AM EDT Negar Ahumada DO LAB BLOOD ORDERABLES Final Resul t [facility] * US OB INCOMPLETE ANATOMY (08/07/2024 9:48 AM EDT) Anatomical Region Laterality Modality Other 08/07/2024 9:48 AM EDT Narrative 08/07/2024 9:50 [place] [address] Ultrasound Report Signed Patient: LISSA ROJAS MR#: [id number] : 1995 Acct:[id number] Age/Sex: 29 / F ADM Date: 08/04/24 Loc: US Attending Dr: Negar Ahumada D.O. Ordering Physician: Negar Ahumada D.O. Date of Service: 08/04/24 Procedure(s): US OB incomplete anatomy Accession Number(s): [id number] cc: Negar Ahumada D.O.; LITO GUERRERO [place] [phone] Patient Name: LISSA ROJAS MRN: [facility]:[id number] date: 1995 Sex: F Assigned Patient Location: US Current Patient Location: Accession/Order Number: [id number] Exam Date: 08/07/2024 09:41 Report Date: 08/07/2024 [...] Gage M.D. 08/07/2024 9:48 AM Dictation Location: [place] [address] Electronically authenticated by: [id number] Y Date: 08/07/2024 09:48 Dictated By: Paula Gage M.D. Signed By: 08/07/2450 DD/ 7 TD/TT: Sheet Rock Installation Helper: Procedure Note Radiology, Radiologist, - 08/07/2024 [place] [address] Ultrasound Report Signed Patient: CONSTANTINE ROJAS#: [id number] : 1995Acct:[id number] Age/Sex: 29 / FADM Date: 08/04/24 Loc: US Attending Dr: Negar Ahumada D.O. Ordering Physician: Negar Ahumada D.O. Date of Service: 08/04/24 Procedure(s): US OB incomplete anatomy Accession Number(s): [id number] cc: Negar Ahumada D.O.; LITO GUERRERO [place] [phone] Patient Name: LISSA ROJAS MRN: [facility]:[id number] date: 1995 Sex: F Assigned Patient Location: US Current Patient Location: Accession/Order Number: [id number] Exam Date: 08/07/2024 09:41 Report Date: 08/07/2024 [...] Gage M.D. 08/07/2024 9:48 AM Dictation Location: [place] [address] Electronically authenticated by: [id number] Y Date: 9:48 Dictated By: Paula Gage M.D. Signed By:08/07/2450 DD/ 7 TD/TT: Sheet Rock Installation Helper: [facility] External Data Provider [facility] Final Result from Last 3 Months Additional Health Concerns Active Problems Noted Date Diagnosed Date OB Reminders 04/30/2024 Insurance [employer] Care Teams President + Publisher Relationship Specialty Start Date End Date Lito Guerrero MD [address] [place] [address] PCP - General Internal Medicine 10/05/22
--- OUTSIDE RECORDS SUMMARY | 2024-10-24 15:49 | XMS_ITS | Encounter Summary ---
Author Organization [facility] Address [address] [place] [address] Care Team Providers Care Lining Scrubber Name Role Phone Robles Goldmsith DO Unavailable [phone] Josefina Harris RN Unavailable [phone] Source Comments In the event this information is protected by the Federal Confidentiality of Alcohol and Drug AbusePatient Records regulations: The Federal rules restrict any use of the information to criminally investigate or prosecute any alcohol or drug abuse patient.[facility] Encounter Details Date Type Department Care Team (Late st Contact Info) Description 04/21/2023 Get Medical Advice [facility] [address] [place], [place] [phone] [place], [place] [address] [place] [address] Genetic testing results Social History Tobacco Use Types Packs/Day [...] on filedocumented in this encounter Care Teams Lining Scrubber Relationship Specialty Start Date End Date Robles Goldsmith DO [address] [phone] Referring Obstetrics 10/13/22 Josefina Harris, ARIC [address] [place] [address] Specialty Switcher 04/12/24 documented as of this encounter
--- OUTSIDE RECORDS SUMMARY | 2024-10-24 15:49 | XMS_ITS | Encounter Summary ---
Author Organization [facility] Address [address] [place] [address] Care Team Providers Care Home Stager Name Role Phone Robles Goldsmith DO Unavailable [phone] Josefina Harris RN Unavailable [phone] Source Comments In the event this information is protected by the Federal Confidentiality of Alcohol and Drug AbusePatient Records regulations: The Federal rules restrict any use of the information to criminally investigate or prosecute any alcohol or drug abuse patient.[facility] Encounter Details Date Type Department Care Team (Late st Contact Info) Description 01/05/2023 Patient Msg Reproductive Endocrinology Infertility [address] [place], [place] [id number] Provider, Alli Received Voicemail Social History Tobacco [...] on filedocumented in this encounter Care Teams Home Stager Relationship Specialty Start Date End Date Robles Goldsmith DO [address] [facility] [address] [place] [address] Referring Obstetrics 10/13/22 [place] [address] [place] [address] Specialty Non Licensed Nuclear Equipment Operator 04/12/24 documented as of this encounter
--- OUTSIDE RECORDS SUMMARY | 2024-10-24 15:49 | XMS_ITS | Encounter Summary ---
Author Organization [facility] Address [address] [place] [address] Care Team Providers Care Sample Washer Name Role Phone Robles Goldsmith DO Unavailable [phone] Josefina Harris RN Unavailable [phone] Source Comments In the event this information is protected by the Federal Confidentiality of Alcohol and Drug AbusePatient Records regulations: The Federal rules restrict any use of the information to criminally investigate or prosecute any alcohol or drug abuse patient.[facility] Encounter Details Date Type Department Care Team (Late st Contact Info) Description 03/23/2023 Patient Msg [address] [address] Provider, Ccf Appointment Reschedule Social History Tobacco [...] on filedocumented in this encounter Care Teams Sample Washer Relationship Specialty Start Date End Date Robles Goldsmith DO [address] [facility] [address] [place] [address] Referring Obstetrics 10/13/22 Josefina Harris, ARIC [address] [place] [address] Specialty Dock Pumper 04/12/24 documented as of this encounter
--- OUTSIDE RECORDS SUMMARY | 2024-10-24 15:49 | XMS_ITS | Clinical Summary ---
Author Organization [facility] Address [address] [place] [address] Care Team Providers Care Wiping Rag Washer Name Role Phone Robles Goldsmith Benitez DO Unavailable [phone] Josefina Harris RN Unavailable [phone] Allergies No known active allergies Medications PNV no.95/ferrous fum/folic ac ( ORAL) Take 1 tablet by mouth once daily. Active Active Problems Problem Noted Date Diagnosed [...] Team Description 09/26/2024 Results Follow-Up Endocrinology [address] [id number] Mirta Valderrama MD 09/11/2024 9:00 AM EDT [facility] Endocrinology [address] [place], [place] [id number] Mirta Valderrama MD Monoallelic mutation of SDHA gene (Primary Dx); Gestational diabetes mellitus (GDM) in third trimester, gestational diabetes method of control unspecified (HCC) 09/11/2024 Travel 09/05/2024 1:45 PM EDT Office Visit Otolarynogology [address] [place] [address] Franklin Laboy MD Monoallelic mutation of SDHA [...] is lower risk 4 12/21/2023 Data from: https://www.neighborhoodatlas.medicine.[facility].edu/. Last address used for calculation [address] 12/21/2023 Comments Yes Sex and [...] Depression Screening 2013 Cervical Cancer Screening 2016 Influenza Vaccine (#1) 2024 01/30/2015, 2008 DTaP,Tdap,Td [...] - 67 pg/mL 09/19/2024 2:41 PM EDT [facility] Comment: Reference Ranges: Hypertensive adult > or = 18 yrs old: 12-72 pg/mL Normotensive adult > or = 18 yrs old: 12-67 pg/mL Normotensive children < 18 yrs old: 10-95 pg/mL Normetanephrine, Plasma 56 18 - 101 pg/mL 09/19/2024 2:41 PM EDT [facility] Comment: Reference Ranges: Hypertensive [...] 12:19 PM EDT 09/04/2024 12:19 PM EDT Narrative [facility] - 09/19/2024 2:41 PM EDT Plasma Free Metanephrine test performed by Liquid Chromatography Tandem Mass Spectrometry (LC/MS/MS). Results obtained with different methods or kits cannot be used interchangeably. This test was developed, and its performance characteristics determined by the [facility] Department of Pathology and Laboratory Medicine. It has not been cleared or approved by the FDA. The [facility] Department of Pathology and Laboratory Medicine is regulated under CLIA as qualified to perform high- complexity testing. This test is used for clinical purposes. It should not be regarded as investigational or for research. us Mirta Valderrama MD LABORATORY Final Result [facility] [address] [place] [address], * HIV 1/2 COMBO WITH REFLEX TO DIFFERENTIATION (09/13/2023 8:52 AM EDT) HIV 12 Combo (Ag/Ab) Nonreactive Nonreactive 09/13/2023 9:15 PM EDT [facility] HIV-1/2 AB (Confirmatory) 09/13/2023 9:15 PM EDT [facility] Comment:Test not indicated. HIV Interpretation 09/13/2023 9:15 PM EDT [facility] Comment: No evidence of HIV-1 or HIV-2 infection. Should recent infection be suspected, repeat testing may be considered 2-3 weeks after this draw. [place] Rev. Code 3701.243(E): This information has been [...] EDT 09/13/2023 8:52 AM EDT Haritha Casiano APRN.NURSING HOME ADMISSIONS DIRECTOR LABORATORY Final R esult [facility] [address] * HEPATITIS C ANTIBODY IA WITH CONFIRMATION (09/13/2023 8:52 AM EDT) [facility] Hep C Antibody IA Negative Negative 09/13/2023 9:06 PM EDT [facility] Comment:The result suggests no evidence of active infection with Hepatitis C virus. Should recent infection be suspected, repeat testing may be considered 4-6 weeks after this draw. Blood BLOOD SPECIMEN / Unknown Venipuncture / Unknown 09/13/2023 8:52 AM EDT 09/13/2023 8:52 AM EDT Haritha Casiano APRN.[facility] LABORATORY Final R esult Performing Organization Address City/[facility]/ZIP Co de Phone Number [facility] [address] [place] [address], from Last 3 Months or Most Recently Relevant to Health Maintenance Insurance [address] [place] [address] [employer] [facility] Care Teams Wiping Rag Washer Relationship Specialty Start Date End Date Robles Goldsmith DO [address] [facility] [address] [place] [address] Referring Obstetrics 10/13/22 [place] [address] [place] [address] Specialty Bladder Tier 04/12/24
--- OUTSIDE RECORDS SUMMARY | 2024-10-24 15:49 | XMS_ITS | Encounter Summary ---
Author Organization [facility] Address [address] [place] [address] Care Team Providers Care Rib Trim Separator Name Role Phone Omer Velazquez MD Primary Care Provider [phone] Encounter Details Date Type Department Care Team (Late st Contact Info) Description 06/07/2024 Abstract [facility] [address] [place] [phone] Saravanan Ahumada DO [address] [place] [address] Social History Tobacco Use Types Packs/Day Years [...] Description 12/11/2024 8:50 AM EDT Visit [facility] [address] [place] [address] Saravanan Ahumada DO [address] [place] [address] 07/24/2025 9:15 AM EDT Office Visit [facility] Internal Medicine [address] [place] [address] documented as of this encounter Goals Goal Patient Goal Type Associated Problems Recent Progress Patient-Stated? Author Reminders Care Plan OB Reminders No Open Scheduling, Background documented as of this encounter Visit Diagnoses Not on filedocumented in this encounter Additional Health Concerns Active Problems Noted Date Diagnosed Date OB Reminders 04/30/2024 documented as of this encounter Care Teams Rib Trim Separator Relationship Specialty Start Date End Date Omer Velazquez MD [address] [place] [address] PCP - General Internal Medicine 10/05/22 documented as of this encounter
--- OUTSIDE RECORDS SUMMARY | 2024-10-24 15:49 | XMS_ITS | Encounter Summary ---
Author Organization [facility] Address [address] [place] [address] Care Team Providers Care White Washer Name Role Phone Robles Goldsmith DO Unavailable [phone] Josefina Harris RN Unavailable [phone] Source Comments In the event this information is protected by the Federal Confidentiality of Alcohol and Drug AbusePatient Records regulations: The Federal rules restrict any use of the information to criminally investigate or prosecute any alcohol or drug abuse patient.[facility] Encounter Details Date Type Department Care Team (Late st Contact Info) Description 11/22/2023 Patient Msg Reproductive Endocrinology Infertility [address] [place], [place] [phone] Provider, Ccf plan for 11/22/23 Social History [...] on filedocumented in this encounter Care Teams White Washer Relationship Specialty Start Date End Date Robles Goldsmith DO [address] [facility] [address] [place] [address] Referring Obstetrics 10/13/22 [place] [address] [place] [address] Specialty Cad Cam Programmer 04/12/24 documented as of this encounter
--- OUTSIDE RECORDS SUMMARY | 2024-10-24 15:49 | XMS_ITS | Encounter Summary ---
Author Organization [facility] Address [address] [place] [address] Care Team Providers Care Associate Music Professor Name Role Phone Robles Goldsmith DO Unavailable [phone] Josefina Harris RN Unavailable [phone] Source Comments In the event this information is protected by the Federal Confidentiality of Alcohol and Drug AbusePatient Records regulations: The Federal rules restrict any use of the information to criminally investigate or prosecute any alcohol or drug abuse patient.[facility] Encounter Details Date Type Department Care Team (Late st Contact Info) Description 03/24/2024 Patient [facility] -[address] [place] [address] Cee Palafox RPh At your next appointment, choose [facility]. Social History Tobacco Use Types [...] lower risk 4 12/21/2023 Data from: https://www.neighborhoodatlas.medicine.[facility].edu/. Last address used for calculation [address] [place] [address] 12/21/2023 Comments Yes Sex and Gender Information Value Date Recorded Sex Assigned at Female 01/04/2023 6:38 PM EDT Legal Sex Female 10:39 AM EDT Gender Identity Female 01/04/2023 6:38 PM EDT Sexual Orientation Not on file documented as of this encounter Plan of Treatment Not on file documented as of this encounter Visit Diagnoses Not on filedocumented in this encounter Care Teams Associate Music Professor Relationship Specialty Start Date End Date Robles Goldsmith DO [address] [facility] [address] [place] [address] Referring Obstetrics 10/13/22 [place] [address] [place] [address] Specialty Follow Up Rep 04/12/24 documented as of this encounter
--- OUTSIDE RECORDS SUMMARY | 2024-10-24 15:49 | XMS_ITS | Encounter Summary ---
Author Organization [facility] Address [address] [place] [address] Care Team Providers Care Felt Hat Steamer Name Role Phone Robles Goldsmith DO Unavailable [phone] Josefina Harris RN Unavailable [phone] Source Comments In the event this information is protected by the Federal Confidentiality of Alcohol and Drug AbusePatient Records regulations: The Federal rules restrict any use of the information to criminally investigate or prosecute any alcohol or drug abuse patient.[facility] Encounter Details Date Type Department Care Team (Latest Contact Info) Description 02/23/2023 Get Medical Advice Reproductive Endocrinology Infertility [address] [place] [address] Shaina Parr MD [address] [place], [place] [phone] Fax blood work order Social History Tobacco [...] on filedocumented in this encounter Care Teams Felt Hat Steamer Relationship Specialty Start Date End Date Robles Goldsmith DO [address] [facility] [address] [place] [address] Referring Obstetrics 10/13/22 [place] [address] [place] [address] Specialty Social Director 04/12/24 documented as of this encounter
--- OUTSIDE RECORDS SUMMARY | 2024-10-24 15:49 | XMS_ITS | Encounter Summary ---
Author Organization [facility] Address [address] [place] [address] Care Team Providers Care Advance Seal Delivery System Maintainer Name Role Phone Robles Goldsmith DO Unavailable [phone] Josefina Harris RN Unavailable [phone] Source Comments In the event this information is protected by the Federal Confidentiality of Alcohol and Drug AbusePatient Records regulations: The Federal rules restrict any use of the information to criminally investigate or prosecute any alcohol or drug abuse patient.[facility] Encounter Details Date Type Department Care Team (Latest Contact Info) Description 07/15/2023 Patient Msg Reproductive Endocrinology Infertility [address] [place], [place] [phone] Provider, Ccf confidential appointment on 08/08 with [...] on filedocumented in this encounter Care Teams Advance Seal Delivery System Maintainer Relationship Specialty Start Date End Date Robles Goldsmith DO [address] [address] Referring Obstetrics 10/13/22 Josefina Harris, ARIC [address] [place] [address] Specialty Manager Labor Relations 04/12/24 documented as of this encounter
--- OUTSIDE RECORDS SUMMARY | 2024-10-24 15:49 | XMS_ITS | Encounter Summary ---
Author Organization [facility] Address [address] [place] [address] Care Team Providers Care Bookmobile Librarian Name Role Phone Robles Goldsmith DO Unavailable [phone] Josefina Harris RN Unavailable [phone] Source Comments In the event this information is protected by the Federal Confidentiality of Alcohol and Drug AbusePatient Records regulations: The Federal rules restrict any use of the information to criminally investigate or prosecute any alcohol or drug abuse patient.[facility] Encounter Details Date Type Department Care Team (Late st Contact Info) Description 01/13/2023 Patient Msg Reproductive Endocrinology Infertility [address] [place], [place] [phone] Provider, Ccf Bloodwork results Social History Tobacco [...] on filedocumented in this encounter Care Teams Bookmobile Librarian Relationship Specialty Start Date End Date Robles Goldsmith DO [address] [facility] [address] [place] [address] Referring Obstetrics 10/13/22 [place] [address] [place] [address] Specialty Materials Mgmt Tech 04/12/24 documented as of this encounter
--- OUTSIDE RECORDS SUMMARY | 2024-10-24 15:49 | XMS_ITS | Encounter Summary ---
Author Organization [facility] Address [address] [place] [address] Care Team Providers Care Cyber Incident Responder Name Role Phone Robles Goldsmith DO Unavailable [phone] Josefina Harris RN Unavailable [phone] Source Comments In the event this information is protected by the Federal Confidentiality of Alcohol and Drug AbusePatient Records regulations: The Federal rules restrict any use of the information to criminally investigate or prosecute any alcohol or drug abuse patient.[facility] Encounter Details Date Type Department Care Team (Latest Contact Info) Description 11/19/2023 Patient Msg Reproductive Endocrinology Infertility [address] [place] [address] Shaina Parr MD [address] [place], [place] [phone] Appointment Request Social History Tobacco Use Types [...] on filedocumented in this encounter Care Teams Cyber Incident Responder Relationship Specialty Start Date End Date Robles Goldsmith DO [address] [facility] [address] [place] [address] Referring Obstetrics 10/13/22 [place] [address] [place] [address] Specialty Master Control Supervisor 04/12/24 documented as of this encounter
--- OUTSIDE RECORDS SUMMARY | 2024-10-24 15:49 | XMS_ITS | Encounter Summary ---
Author Organization [facility] Address [address] [place] [address] Care Team Providers Care Measurement And Verification Engineer Name Role Phone Robles Goldsmith DO Unavailable [phone] Josefina Harris RN Unavailable [phone] Source Comments In the event this information is protected by the Federal Confidentiality of Alcohol and Drug AbusePatient Records regulations: The Federal rules restrict any use of the information to criminally investigate or prosecute any alcohol or drug abuse patient.[facility] Encounter Details Date Type Department Care Team (Latest Contact Info) Description 01/13/2024 Patient Msg Reproductive Endocrinology Infertility [address] [place] [address] Shaina Parr MD [address] [place] [address] Appointment Request Social History Tobacco [...] is lower risk 4 12/21/2023 Data from: https://www.neighborhoodatlas.[facility]/. Last address used for calculation [address] [...] on filedocumented in this encounter Care Teams Measurement And Verification Engineer Relationship Specialty Start Date End Date Robles Goldsmith DO [address] [facility] [address] [place] [address] Referring Obstetrics 10/13/22 [place] [address] [address] [place], [place] [address] Specialty Nursing Professor 04/12/24 documented as of this encounter
--- OUTSIDE RECORDS SUMMARY | 2024-10-24 15:49 | XMS_ITS | Encounter Summary ---
Author Organization [facility] Address [address] [place] [address] Care Team Providers Care Transportation Security Officer Name Role Phone Omer Velazquez MD Primary Care Provider [phone] Encounter Details Date Type Department Care Team (Late st Contact Info) Description 06/19/2024 Abstract [facility] [address] [place] [address] Saravanan Ahumada DO [address] [facility] [place] [address] Social History Tobacco Use Types Packs/Day Years [...] AM EDT Visit [facility] [address] [place] [address] Saravanan Ahumada DO [address] [facility] [place] [address] 07/24/2025 9:15 AM EDT Office Visit [facility] Internal Medicine [address] [place] [address] documented as of this encounter Goals Goal Patient Goal Type Associated Problems Recent Progress Patient-Stated? Author Reminders Care Plan OB Reminders No Open Scheduling, Background documented as of this encounter Visit Diagnoses Not on filedocumented in this encounter Additional Health Concerns Active Problems Noted Date Diagnosed Date OB Reminders 04/30/2024 documented as of this encounter Care Teams Transportation Security Officer Relationship Specialty Start Date End Date Omer Velazquez MD [address] [place] [address] PCP - General Internal Medicine 10/05/22 documented as of this encounter
--- OUTSIDE RECORDS SUMMARY | 2024-10-24 15:49 | XMS_ITS | Encounter Summary ---
Author Organization [facility] Address [address] [place] [address] Care Team Providers Care Software Sales Name Role Phone Robles Goldsmith DO Unavailable [phone] Josefina Harris RN Unavailable [phone] Source Comments In the event this information is protected by the Federal Confidentiality of Alcohol and Drug AbusePatient Records regulations: The Federal rules restrict any use of the information to criminally investigate or prosecute any alcohol or drug abuse patient.[facility] Encounter Details Date Type Department Care Team (Late st Contact Info) Description 02/04/2023 Patient Msg Reproductive Endocrinology Infertility [address] [place] [address] Haritha Casiano APRN.STEAM STATION SUPERVISOR [address] [place] [place] [address] Next steps Social History Tobacco Use Types [...] on filedocumented in this encounter Care Teams Software Sales Relationship Specialty Start Date End Date Robles Goldsmith DO [address] [facility] [address] [place] [address] Referring Obstetrics 10/13/22 [place] [address] [place] [address] Specialty Acute Care Nurse 04/12/24 documented as of this encounter
--- OUTSIDE RECORDS SUMMARY | 2024-10-24 15:49 | XMS_ITS | Encounter Summary ---
Author Organization [facility] Address [address] [place] [address] Care Team Providers Care Meat Counter Worker Name Role Phone Omer Velazquez MD Primary Care Provider [phone] Encounter Details Date Type Department Care Team (Late st Contact Info) Description 05/23/2024 Abstract [facility]BL[facility] [address] [place] [address] [place] [address] Kayla Ashley LPN Social History Tobacco [...] AM EDT Visit [facility] [place] [address] [facility] [place] [address] Saravanan Ahumada DO [address] [facility] [address] [place] [address] 07/24/2025 9:15 AM EDT Office Visit [facility] Internal Medicine [address] [place] [address] documented as of this encounter Goals Goal Patient Goal Type Associated Problems Recent Progress Patient-Stated? Author Reminders Care Plan OB Reminders No Open Scheduling, Background documented as of this encounter Visit Diagnoses Not on filedocumented in this encounter Additional Health Concerns Active Problems Noted Date Diagnosed Date OB Reminders 04/30/2024 documented as of this encounter Care Teams Meat Counter Worker Relationship Specialty Start Date End Date Omer Velazquez MD [address] [place] [address] PCP - General Internal Medicine 10/05/22 documented as of this encounter
--- OUTSIDE RECORDS SUMMARY | 2024-10-24 15:49 | XMS_ITS | Encounter Summary ---
Author Organization [facility] Address [address] [place] [address] Care Team Providers Care Blocker Heated Metal Forms Name Role Phone Robles Goldsmith DO Unavailable [phone] Josefina Harris RN Unavailable [phone] Source Comments In the event this information is protected by the Federal Confidentiality of Alcohol and Drug AbusePatient Records regulations: The Federal rules restrict any use of the information to criminally investigate or prosecute any alcohol or drug abuse patient.[facility] Encounter Details Date Type Department Care Team (Late st Contact Info) Description 2024 Patient Msg Reproductive Endocrinology Infertility [address] [place], [place] [address] Haritha Casiano APRN.A AND P TECHNICIAN [address] [place] [address] Congratulations!!! Social History Tobacco Use Types Packs/Day [...] is lower risk 4 12/21/2023 Data from: https://www.neighborhoodatlas.[facility].edu/. Last address used for calculation [address] 12/21/2023 Comments Yes Sex and [...] on filedocumented in this encounter Care Teams Blocker Heated Metal Forms Relationship Specialty Start Date End Date Robles Goldsmith DO [address] [place] [address] Referring Obstetrics 10/13/22 [place] [address] [address] [place], [place] [id number] Specialty Early Years Teacher 04/12/24 documented as of this encounter
--- OUTSIDE RECORDS SUMMARY | 2024-10-24 15:49 | XMS_ITS | Encounter Summary ---
Author Organization [facility] Address [address] [place] [address] Care Team Providers Care On Awake Counselor Name Role Phone Robles Goldsmith DO Unavailable [phone] Josefina Harris RN Unavailable [phone] Source Comments In the event this information is protected by the Federal Confidentiality of Alcohol and Drug AbusePatient Records regulations: The Federal rules restrict any use of the information to criminally investigate or prosecute any alcohol or drug abuse patient.[facility] Encounter Details Date Type Department Care Team (Late st Contact Info) Description 01/25/2023 Patient Msg Reproductive Endocrinology Infertility [address] [place] [address] Shaina Edge MD [facility] [place] [phone] MyRiad results Social History Tobacco Use Types [...] on filedocumented in this encounter Care Teams On Awake Counselor Relationship Specialty Start Date End Date Robles Goldsmith DO [address] [facility] [address] [place] [address] Referring Obstetrics 10/13/22 [place] [address] [place] [address] Specialty Superintendent Local 04/12/24 documented as of this encounter
--- OUTSIDE RECORDS SUMMARY | 2024-10-24 15:49 | XMS_ITS | Encounter Summary ---
Author Organization [facility] Address [address] [place] [address] Care Team Providers Care Make Ready Worker Name Role Phone Robles Goldsmith Benitez DO Unavailable [phone] Josefina Harris RN Unavailable [phone] Source Comments In the event this information is protected by the Federal Confidentiality of Alcohol and Drug AbusePatient Records regulations: The Federal rules restrict any use of the information to criminally investigate or prosecute any alcohol or drug abuse patient.[facility] Encounter Details Date Type Department Care Team (Late st Contact Info) Description 09/26/2024 Results Follow-Up Endocrinology [address] [place] [address] Mirta Valderrama MD [address] [place] [address] Social History Tobacco Use Types [...] is lower risk 4 12/21/2023 Data from: https://www.neighborhoodatlas.medicine.[facility].edu/. Last address used for calculation [address] [place] [address] 12/21/2023 Comments Yes Sex and Gender Information Value Date Recorded Sex Assigned at Female 01/04/2023 6:38 PM EDT Legal Sex Female 10:39 AM EDT Gender Identity Female 01/04/2023 6:38 PM EDT Sexual Orientation Not on file documented as of this encounter Plan of Treatment Not on file documented as of this encounter Visit Diagnoses Not on filedocumented in this encounter Care Teams Make Ready Worker Relationship Specialty Start Date End Date Robles Goldsmith DO [address] [place] [address] Referring Obstetrics 10/13/22 [place] [address] [place] [address] Specialty Technical Services Manager 04/12/24 documented as of this encounter
--- OUTSIDE RECORDS SUMMARY | 2024-10-24 15:49 | XMS_ITS | Encounter Summary ---
Author Organization [facility] Address [address] [place] [address] Care Team Providers Care Cyber Security Systems Engineer Name Role Phone Omer Velazquez MD Primary Care Provider [phone] Encounter Details Date Type Department Care Team (Late st Contact Info) Description 06/27/2024 Orders Only [facility] [address] [facility] [place] [address] [place] [address] [place] [address] Social History Tobacco Use Types Packs/Day Years [...] AM EDT Visit [facility] [place] [address] [facility] [place] [address] Saravanan Ahumada DO [address] [facility] [place] [address] 07/24/2025 9:15 AM EDT Office Visit [facility]Tim[facility] Hassan Internal Medicine [address] [facility] [address] [place] [address] documented as of this encounter Goals Goal [...] documented as of this encounter Care Teams Cyber Security Systems Engineer Relationship Specialty Start Date End Date Omer Velazquez MD [address] [place] [address] PCP - General Internal Medicine 10/05/22 documented as of this encounter
--- OUTSIDE RECORDS SUMMARY | 2024-10-24 15:49 | XMS_ITS | Encounter Summary ---
Author Organization [facility] Address [address] [facility] [place] [address] Care Team Providers Care International Nurse Name Role Phone Omer Velazquez MD Primary Care Provider [phone] Encounter Details Date Type Department Care Team (Late st Contact Info) Description 08/24/2024 External Result Encounter N[facility] External Department Unsolicited Jaime Mccarthy, FACING BASTER JUMPBASTING [address] [place] [address] Social History Tobacco Use Types Packs/Day Years [...] AM EDT Visit [facility] [address] [place] [address] Saravanan Ahumada, DO [address] [facility] [place] [address] 07/24/2025 9:15 AM EDT Office Visit HEENA Hassan Internal Medicine [address] [place] [address] documented as of this encounter Goals Goal [...] PM EDT Narrative 08/24/2024 6:36 PM EDT [facility] Main [address] [address] Echocardiogram Signed Patient: Lissa Rivas MR#: [id number] : 1995 Acct:[id number] Age/Sex: 29 / F ADM Date: 08/24/24 Loc: Room: Type: [facility] Attending Dr: Jaime Mccarthy RN, MSN, ANP-C [...] Procedure Note Iveth Ding MD - 08/24/2024 [facility] [place] [address] Echocardiogram Signed Patient: Lissa Rivas FMR#: [id number] : 1995Acct:[id number] Age/Sex: Date: 08/24/24 Loc: Room:Type: [facility] Attending Dr: Jaime Mccarthy RN, MSN, ANP-C [...] LV V1 max: 95.2 cm/sec TR max brenice: 257.9 cm/sec LV V1 max P.6 mmHg TR max P.6 mmHg LV V1 mean: 64.2 cm/sec LV V1 mean P.88 mmHg LV V1 VTI: 19.2 cm + + + + + : Electronically: : signed by: Iveth: :: : Toña: :: : on: 08/24/2024,: : 6:35 PM: Transcribed By: HERNAN Performed At: 08/24/24 1239 Signed By: Iveth Ding MD 08/24/24 3858 us Jaime Mccarthy FACING BASTER JUMPBASTING CV ECHO PROCEDURES Final Res ult documented in this encounter Visit Diagnoses Not on filedocumented in this encounter Additional Health Concerns Active Problems Noted Date Diagnosed Date OB Reminders 04/30/2024 documented as of this encounter Care Teams International Nurse Relationship Specialty Start Date End Date Omer Velazquez MD [address] [place] [id number] PCP - General Internal Medicine 10/05/22 documented as of this encounter
--- OUTSIDE RECORDS SUMMARY | 2024-10-24 15:49 | XMS_ITS | Encounter Summary ---
Author Organization [facility] Address [address] [place] [address] Care Team Providers Care Scientific Programmer Analyst Name Role Phone Omer Velazquez MD Primary Care Provider [phone] Encounter Details Date Type Department Care Team (Late st Contact Info) Description 06/19/2024 Abstract [facility] [address] [place] [address] Saravanan Ahumada DO [address] [facility] [place] [address] Social History Tobacco Use Types Packs/Day Years [...] AM EDT Visit [facility] [address] [place] [address] Saravanan Ahumada DO [address] [facility] [place] [address] 07/24/2025 9:15 AM EDT Office Visit HEENA Hassan Internal Medicine [address] [place] [address] documented as of this encounter Goals Goal Patient Goal Type Associated Problems Recent Progress Patient-Stated? Author Reminders Care Plan OB Reminders No Open Scheduling, Background documented as of this encounter Visit Diagnoses Not on filedocumented in this encounter Additional Health Concerns Active Problems Noted Date Diagnosed Date OB Reminders 04/30/2024 documented as of this encounter Care Teams Scientific Programmer Analyst Relationship Specialty Start Date End Date Omer Velazquez MD [address] [place] [address] PCP - General Internal Medicine 10/05/22 documented as of this encounter
--- OUTSIDE RECORDS SUMMARY | 2024-10-24 15:49 | XMS_ITS | Encounter Summary ---
Author Organization [facility] Address [address] [place] [address] Care Team Providers Care Women'S Garment Fitter Name Role Phone Omer Velazquez MD Primary Care Provider [phone] Encounter Details Date Type Department Care Team (Late st Contact Info) Description 05/23/2024 Abstract [facility] OBLyn[facility]te [address] [place] [address] [place] [address] Kayla Ashley LPN Social History Tobacco [...] AM EDT Visit [facility] [place] [address] [facility] [place] [address] Saravanan Ahumada DO [address] [facility] [place] [address] 07/24/2025 9:15 AM EDT Office Visit HEENA Hassan Internal Medicine [address] [place] [address] documented as of this encounter Goals Goal Patient Goal Type Associated Problems Recent Progress Patient-Stated? Author Reminders Care Plan OB Reminders No Open Scheduling, Background documented as of this encounter Visit Diagnoses Not on filedocumented in this encounter Additional Health Concerns Active Problems Noted Date Diagnosed Date OB Reminders 04/30/2024 documented as of this encounter Care Teams Women'S Garment Fitter Relationship Specialty Start Date End Date Omer Velazquez MD [address] [place] [address] PCP - General Internal Medicine 10/05/22 documented as of this encounter
--- OUTSIDE RECORDS SUMMARY | 2024-10-24 15:49 | XMS_ITS | Encounter Summary ---
Author Organization [facility] Address [address] [place] [address] Care Team Providers Care Tape Rules Printing Machine Operator Name Role Phone Robles Goldsmith DO Unavailable [phone] Josefina Harris RN Unavailable [phone] Source Comments In the event this information is protected by the Federal Confidentiality of Alcohol and Drug AbusePatient Records regulations: The Federal rules restrict any use of the information to criminally investigate or prosecute any alcohol or drug abuse patient.[facility] Encounter Details Date Type Department Care Team (Late st Contact Info) Description 07/21/2023 Get Medical Advice [facility] [address] [place], [place] [phone] [place], [place] [address] [place] [address] referral for genetics testing Social [...] on filedocumented in this encounter Care Teams Tape Rules Printing Machine Operator Relationship Specialty Start Date End Date Robles Goldsmith DO [address] [address] Referring Obstetrics 10/13/22 [place] [address] [place] [address] Specialty Certified Travel Counselor 04/12/24 documented as of this encounter
--- OUTSIDE RECORDS SUMMARY | 2024-10-24 15:49 | XMS_ITS | Encounter Summary ---
Author Organization [facility] Address [address] [place] [address] Care Team Providers Care Credit Clerk Name Role Phone Robles Goldsmith DO Unavailable [phone] Josefina Harris RN Unavailable [phone] Source Comments In the event this information is protected by the Federal Confidentiality of Alcohol and Drug AbusePatient Records regulations: The Federal rules restrict any use of the information to criminally investigate or prosecute any alcohol or drug abuse patient.[facility] Encounter Details Date Type Department Care Team (Late st Contact Info) Description 02/11/2024 Patient Msg Family Medicine [address] [place], [place] [id number] Provider, Ccf Appointment Cancellation Social History Tobacco [...] is lower risk 4 12/21/2023 Data from: https://www.neighborhoodatlas.medicine.[facility].edu/. Last address used for calculation [address] [place] [address] 12/21/2023 Comments No Sex and Gender Information Value Date Recorded Sex Assigned at Female 01/04/2023 6:38 PM EDT Legal Sex Female 10:39 AM EDT Gender Identity Female 01/04/2023 6:38 PM EDT Sexual Orientation Not on file documented as of this encounter Plan of Treatment Not on file documented as of this encounter Visit Diagnoses Not on filedocumented in this encounter Care Teams Credit Clerk Relationship Specialty Start Date End Date Robles Goldsmith DO [address] [facility] [address] [place] [address] Referring Obstetrics 10/13/22 [place] [address] [place] [address] Specialty Cylinder Head Assembler 04/12/24 documented as of this encounter
--- OUTSIDE RECORDS SUMMARY | 2024-10-24 15:49 | XMS_ITS | Encounter Summary ---
Author Organization [facility] Address [address] [place] [address] Care Team Providers Care First Leveler Name Role Phone Omer Velazquez MD Primary Care Provider [phone] Encounter Details Date Type Department Care Team (Late st Contact Info) Description 05/22/2024 Abstract [facility] [address] [facility] [place] [address] Saravanan Ahumada DO [address] [facility] [place] [address] Social History Tobacco Use Types Packs/Day Years [...] AM EDT Visit [facility] [place] [address] [facility] [place] [address] Saravanan Ahumada DO [address] [facility] [place] [address] 07/24/2025 9:15 AM EDT Office Visit N[facility]Timothy Hassan Internal Medicine [address] [place] [address] documented as of this encounter Goals Goal Patient Goal Type Associated Problems Recent Progress Patient-Stated? Author Reminders Care Plan OB Reminders No Open Scheduling, Background documented as of this encounter Visit Diagnoses Not on filedocumented in this encounter Additional Health Concerns Active Problems Noted Date Diagnosed Date OB Reminders 04/30/2024 documented as of this encounter Care Teams First Leveler Relationship Specialty Start Date End Date Omer Velazquez MD [address] [place] [address] PCP - General Internal Medicine 10/05/22 documented as of this encounter
--- OUTSIDE RECORDS SUMMARY | 2024-10-24 15:50 | XMS_ITS | Encounter Summary ---
Author Organization [facility] Address [address] [place] [address] Care Team Providers Care Offc Spec Name Role Phone Omer Velazquez MD Primary Care Provider [phone] Encounter Details Date Type Department Care Team (Late st Contact Info) Description 10/23/2024 Bamboo flowsheet [facility] [address] [facility] [place] [address] Saravanan Ahumada DO [address] [facility] [address] [place], [facility] Social History Tobacco Use Types Packs/Day [...] AM EDT Visit [facility] [place] [address] [facility] [place] [address] Saravanan Ahumada DO [address] [facility] [place] [address] 07/24/2025 9:15 AM EDT Office Visit NOMTimothy Hassan Internal Medicine [address] [facility] [address] [place] [address] documented as of this encounter Goals Goal Patient Goal Type Associated Problems Recent Progress Patient-Stated? Author Reminders Care Plan OB Reminders No Open Scheduling, Background documented as of this encounter Visit Diagnoses Not on filedocumented in this encounter Additional Health Concerns Active Problems Noted Date Diagnosed Date OB Reminders 04/30/2024 documented as of this encounter Care Teams Offc Spec Relationship Specialty Start Date End Date Omer Velazquez MD [address] [place] [address] PCP - General Internal Medicine 10/05/22 documented as of this encounter
--- OUTSIDE RECORDS SUMMARY | 2024-10-24 15:50 | XMS_ITS | Clinical Summary ---
Author Organization [facility] Address [address] [place] [address] Phone Care Team Providers Care Internal Sales Name Role Phone Omer Velazquez MD Primary [...] Department Care Team Description 10/18/2024 Scanned Document [facility] [address] [place] [id number] Scanning, Generic Provider from Last 3 Months [...] al Result from Last [address] [place] [address] [facility] Care Teams Internal Sales Relationship Specialty Start Date End Date Omer Velazquez MD [address] [place] [address] PCP - General Internal Medicine 02/14/24
--- OUTSIDE RECORDS SUMMARY | 2024-10-24 15:50 | XMS_ITS | Encounter Summary ---
Author Organization [facility] Address [address] [place] [address] Care Team Providers Care First Line Supervisor Name Role Phone Omer Velazquez MD Primary Care Provider [phone] Encounter Details Date Type Department Care Team (Late st Contact Info) Description 10/24/2024 Telephone [facility] [address] [place] [address] [place] [address] Kayla Ashley LPN Social History Tobacco [...] encounter Miscellaneous Notes * Telephone Encounter - Kayla Ashley LPN - 10/24/2024 10:12 AM EDT 10:10am Yesi from [facility] called and voiced that she has patient setup for delivery next week. It was too close to get patient in with [place] for women's health services, so she setup with [facility] Delivery. Patient is going to arrive on Wednesday10/30/24 @0730. Yesi will reach out to patient to notify her of all the details. Kayla Mason LPN documented in this encounter Plan of Treatment Upcoming Encounters Date Type Department Care Team (Late st Contact Info) Description 12/11/2024 8:50 AM EDT Visit [facility] [place] OBG[facility] [address] [facility] [place] [address] Saravanan Ahumada DO [address] [facility] [place] [address] 07/24/2025 9:15 AM EDT Office Visit [facility] Internal Medicine [address] [place] [address] documented as of this encounter Goals Goal Patient Goal Type Associated Problems Recent Progress Patient-Stated? Author Reminders Care Plan OB Reminders No Open Scheduling, Background documented as of this encounter Visit Diagnoses Not on filedocumented in this encounter Additional Health Concerns Active Problems Noted Date Diagnosed Date OB Reminders 04/30/2024 documented as of this encounter Care Teams First Line Supervisor Relationship Specialty Start Date End Date Omer Velazquez MD [address] [place] [address] PCP - General Internal Medicine 10/05/22 documented as of this encounter
--- OUTSIDE RECORDS SUMMARY | 2024-10-24 15:50 | XMS_ITS | Encounter Summary ---
Author Organization [facility] Address [address] [place] [address] Care Team Providers Care Naturopath Name Role Phone Robles Goldsmith DO Unavailable [phone] Josefina Harris RN Unavailable [phone] Source Comments In the event this information is protected by the Federal Confidentiality of Alcohol and Drug AbusePatient Records regulations: The Federal rules restrict any use of the information to criminally investigate or prosecute any alcohol or drug abuse patient.[facility] Encounter Details Date Type Department Care Team (Late st Contact Info) Description 09/10/2023 Patient Msg Reproductive Endocrinology Infertility [address] [place] [address] Haritha Casiano APRN.REIMBURSEMENT COUNSELOR [address] [place] [address] IUI information Social History Tobacco Use Types [...] on filedocumented in this encounter Care Teams Naturopath Relationship Specialty Start Date End Date Robles Goldsmith DO [address] [facility] [address] [place] [address] Referring Obstetrics 10/13/22 [place] [address] [place] [address] Specialty Gold Marker 04/12/24 documented as of this encounter
--- OUTSIDE RECORDS SUMMARY | 2024-10-24 15:50 | XMS_ITS | Encounter Summary ---
Author Organization [facility] Address [address] [place] [address] Care Team Providers Care Temper Mill Roller Name Role Phone Omer Velazquez MD Primary Care Provider [phone] Encounter Details Date Type Department Care Team (Late st Contact Info) Description 10/12/2024 Abstract [facility] [address] [place] [address] Saravanan Ahumada DO [address] [facility] [address] Social History Tobacco Use Types Packs/Day Years [...] [place] OBGYN [address] [place] [address] Saravanan Ahumada DO [address] [facility] [place] [address] 07/24/2025 9:15 AM EDT Office Visit HEENA Hassan Internal Medicine [address] [place] [address] documented as of this encounter Goals Goal Patient Goal Type Associated Problems Recent Progress Patient-Stated? Author Reminders Care Plan OB Reminders No Open Scheduling, Background documented as of this encounter Visit Diagnoses Not on filedocumented in this encounter Additional Health Concerns Active Problems Noted Date Diagnosed Date OB Reminders 04/30/2024 documented as of this encounter Care Teams Temper Mill Roller Relationship Specialty Start Date End Date Omer Velazquez MD [address] [place] [address] PCP - General Internal Medicine 10/05/22 documented as of this encounter
--- OUTSIDE RECORDS SUMMARY | 2024-10-24 15:50 | XMS_ITS | Encounter Summary ---
Author Organization [facility] Address [address] [place] [address] Care Team Providers Care Dock Guard Name Role Phone Robles Goldsmith DO Unavailable [phone] Josefina Harris RN Unavailable [phone] Source Comments In the event this information is protected by the Federal Confidentiality of Alcohol and Drug AbusePatient Records regulations: The Federal rules restrict any use of the information to criminally investigate or prosecute any alcohol or drug abuse patient.[facility] Encounter Details Date Type Department Care Team (Late st Contact Info) Description 08/12/2023 Patient [facility] -[address] [place] [address] Cee Palafox RPh At your next appointment, choose [facility]. Social History Tobacco Use Types [...] on filedocumented in this encounter Care Teams Dock Guard Relationship Specialty Start Date End Date Robles Goldsmith DO [address] [facility] [address] [place] [address] Referring Obstetrics 10/13/22 [place] [address] [place] [address] Specialty Movie Theater Usher 04/12/24 documented as of this encounter
--- OUTSIDE RECORDS SUMMARY | 2024-10-24 15:50 | XMS_ITS | Encounter Summary ---
Author Organization [facility] tem Address [id number] [address] [place] [address] Care Team Providers Care Commercial Finance Manager Name Role Phone Unavailable Primary Care Provider Unavailabl e Encounter Details Date Type Department Care Team (Late st Contact Info) Description 10/24/2024 Documentation Maternal- Medicine at [facility] [address] [place] [address] Yesi Meade APRN-CNM [address], [address] [place] [address] Social History Tobacco Use Types Packs/Day Years [...] as of this encounter Progress Notes * MILIND Mccormick - 10/24/2024 10:19 AM EDT [facility] recommendation is for patient to deliver at [facility] at 37 weeks gestation. Natural Gas Shothole Driller called [facility] regarding possibility of pt having [facility] appointment before 37 weeks. [facility] prefers pt to be scheduled for mIoL without appointment at [facility]. L&D contacted with patient information, including need for telemetry. mIOL set for 10/30/24 @ 0730. Patient to call [phone] prior to traveling on 10/30/24 to make sure of bed availability. Natural Gas Shothole Driller spoke with patient. Informed of mIOL scheduled for 10/30/24, to call before coming to confirm availability, where to park and enter hospital & how to get to L&D. Pt states understanding of plan. States she has an NST today and Wednesday in [place]. Denies questions or concerns. MILIND Mccormick 10/24/24 1026 documented in this encounter Plan of Treatment Not on file documented as of this encounter Visit Diagnoses Not on filedocumented in this encounter
--- OUTSIDE RECORDS SUMMARY | 2024-10-24 15:50 | XMS_ITS | Encounter Summary ---
[facility] Address [id number] [address] [place] [address] Care Team Providers Care Psychometrician Name Role Phone Unavailable Primary Care Provider Unavailabl e Encounter Details Date Type Department Care Team (Latest Contact Info) Description 10/23/2024 Travel Social History Tobacco Use Types Packs/Day [...]
--- OUTSIDE RECORDS SUMMARY | 2024-10-24 15:50 | XMS_ITS | Encounter Summary ---
Author Organization [facility] Address [address] [place] [address] Care Team Providers Care Security Systems Manager Name Role Phone Omer Velazquez MD Primary Care Provider [phone] Encounter Details Date Type Department Care Team (Late st Contact Info) Description 05/01/2024 Abstract [facility] [place] [facility] [address] [facility] [address] [address] Saravanan Ahumada DO [address] [facility] [place] [address] Social History Tobacco Use Types Packs/Day Years [...] AM EDT Visit [facility] [place] [facility] [address] [address] Saravanan Ahumada DO [address] [facility] [place] [address] 07/24/2025 9:15 AM EDT Office Visit [facility] Internal Medicine [address] [place] [address] documented as of this encounter Goals Goal Patient Goal Type Associated Problems Recent Progress Patient-Stated? Author Reminders Care Plan OB Reminders No Open Scheduling, Background documented as of this encounter Visit Diagnoses Not on filedocumented in this encounter Additional Health Concerns Active Problems Noted Date Diagnosed Date OB Reminders 04/30/2024 documented as of this encounter Care Teams Security Systems Manager Relationship Specialty Start Date End Date Omer Velazquez MD [address] [place] [address] PCP - General Internal Medicine 10/05/22 documented as of this encounter
--- OUTSIDE RECORDS SUMMARY | 2024-10-24 15:50 | XMS_ITS | Encounter Summary ---
Author Organization [facility] Address [address] [place] [address] Care Team Providers Care Wound Specialist Name Role Phone Lito Guerrero MD Primary Care Provider [phone] Encounter Details Date Type Department Care Team (Late st Contact Info) Description 10/11/2024 Clinisync Result Encounter N[facility] External Department Unsolicited Negar Ahumada, DO [address] [facility] [place] [address] Social History Tobacco Use Types Packs/Day Years [...] AM EDT Visit [facility] [place] [facility] [address] [place] [address] Negar Ahumada DO [address] [place] [address] 07/24/2025 9:15 AM EDT Office Visit [facility] Internal Medicine [address] [place] [address] documented as of this encounter Goals Goal [...] AM EDT Narrative 10/11/2024 8:45 [place] [address] Ultrasound Report Signed Patient: LISSA ROJAS MR#: [id number] : 1995 Acct:[id number] Age/Sex: 29 / F ADM Date: 10/10/24 Loc: US Attending Dr: Negar Ahumada D.O. Ordering Physician: Negar Ahumada D.O. Date of Service: 10/10/24 Procedure(s): US OB BPP w non-stress Accession Number(s): [id number] cc: Negar Ahumada D.O.; LITO GUERRERO [address] [address] Patient Name: LISSA ROJAS MRN: [facility]:[id number] date: 1995 Sex: F Assigned Patient Location: Current Patient Location: Accession/Order Number: [id number] Exam Date: 10/11/2024 08:41 Report Date: 10/11/2024 08:42 At the request of: NEGAR AHUMADA DO [...] Gage M.D. 10/11/2024 8:42 AM Dictation Location: [place] [address] Electronically authenticated by: [id number] Y Date: 10/11/2024 08:42 Dictated By: Paula Gage M.D. Signed By: 10/11/24 0845 DD/ 0842 TD/TT: Tractor Sweeper Operator: Procedure Note Radiology, Radiologist, - 10/11/2024 [place] [address] Ultrasound Report Signed Patient: LISSA ROJAS FMR#: [id number] : 1995Acct:[id number] Age/Sex: 29 / FADM Date: 10/10/24 Loc: US Attending Dr: Negar Ahumada D.O. Ordering Physician: Negar Ahumada D.O. Date of Service: 10/10/24 Procedure(s): US OB BPP w non-stress Accession Number(s): [id number] cc: Negar Ahumada D.O.; LITO GUERRERO [place] [id number] Patient Name: LISSA ROJAS MRN: [facility]:[id number] date: 1995 Sex: F Assigned Patient Location: US Current Patient Location: Accession/Order Number: [id number] Exam Date: 10/11/2024 08:41 Report Date: 10/11/2024 08:42 At the request of: NEGAR AHUMADA DO [...] is in normal range. Total score: 8/8 US/ OB BPP w non-stress IMPRESSION: NORMAL BIOPHYSICAL PROFILE Impression dictated by: Paula Gage M.D. 10/11/2024 8:42 AM Dictation Location: [place] [address] Electronically authenticated by: [id number] Y Date: 508:42 Dictated By: Paula Gage M.D. Signed By:10/11/24 0845 DD/ 0842 TD/TT: Tractor Sweeper Operator: Negar Ahumada DO [facility] Final Result documented in this encounter Visit Diagnoses Not on filedocumented in this encounter Additional Health Concerns Active Problems Noted Date Diagnosed Date OB Reminders 04/30/2024 documented as of this encounter Care Teams Wound Specialist Relationship Specialty Start Date End Date Lito Guerrero MD [address] [facility] [address] [place] [address] PCP - General Internal Medicine 10/05/22 documented as of this encounter
--- OUTSIDE RECORDS SUMMARY | 2024-10-24 15:50 | XMS_ITS | Encounter Summary ---
Author Organization [facility] Address [address] [place] [address] Care Team Providers Care Deputy Fire Chief Name Role Phone Omer Velazquez MD Primary Care Provider [phone] Encounter Details Date Type Department Care Team (Late st Contact Info) Description 10/11/2024 Abstract [facility] [place] [facility] [address] [facility] [place] [phone] Saravanan Ahumada DO [address] [facility] [place] [address] Social History Tobacco Use Types Packs/Day Years [...] AM EDT Visit [facility] [place] [facility] [address] [facility] [place] [address] Saravanan Ahumada DO [address] [facility] [place] [address] 07/24/2025 9:15 AM EDT Office Visit [facility]EENA Hassan Internal Medicine [address] [place] [address] documented as of this encounter Goals Goal Patient Goal Type Associated Problems Recent Progress Patient-Stated? Author Reminders Care Plan OB Reminders No Open Scheduling, Background documented as of this encounter Visit Diagnoses Not on filedocumented in this encounter Additional Health Concerns Active Problems Noted Date Diagnosed Date OB Reminders 04/30/2024 documented as of this encounter Care Teams Deputy Fire Chief Relationship Specialty Start Date End Date Omer Velazquez MD [address] [place] [address] PCP - General Internal Medicine 10/05/22 documented as of this encounter"
--- OUTSIDE RECORDS SUMMARY | 2024-10-24 15:50 | XMS_ITS | Encounter Summary ---
Author Organization [facility] Address [address] [facility] [place] [address] Care Team Providers Care Career Placement Services Counselor Name Role Phone Omer Velazquez MD Primary Care Provider [phone] Encounter Details Date Type Department Care Team (Late st Contact Info) Description 01/11/2023 Abstract [facility] Medicine [address] [facility] 230 [place] [address] Omer Velazquez MD [address] [facility] 230 [place] [address] Social History Tobacco Use Types Packs/Day Years [...] AM EDT Visit [facility] [place] [facility] [address] [facility] [place] [phone] Saravanan Ahumada DO [address] [place] [address] 07/24/2025 9:15 AM EDT Office Visit [facility] [address] [place] [address] documented as of this encounter Visit Diagnoses Not on filedocumented in this encounter Care Teams Career Placement Services Counselor Relationship Specialty Start Date End Date Omer Velazquez MD [address] [place] [address] PCP - General Internal Medicine 10/05/22 documented as of this encounter
--- OUTSIDE RECORDS SUMMARY | 2024-10-24 15:50 | XMS_ITS | Encounter Summary ---
Author Organization [facility] Address [address] [place] [address] Care Team Providers Care Automotive Sales Executive Name Role Phone Omer Velazquez MD Primary Care Provider [phone] Encounter Details Date Type Department Care Team (Late st Contact Info) Description 10/16/2024 Bamboo flowsheet [facility] [place] [facility] [address] [facility] [address] Saravanan Ahumada DO [address] [facility] [address] [place], [facility] Social History Tobacco Use Types Packs/Day [...] AM EDT Visit [facility] [place] [facility] [address] [facility] [place] [address] Saravanan Ahumada DO [address] [facility] [place] [address] 07/24/2025 9:15 AM EDT Office Visit [facility] Medicine [address] [facility] 230 [place] [address] documented as of this encounter Goals Goal Patient Goal Type Associated Problems Recent Progress Patient-Stated? Author Reminders Care Plan OB Reminders No Open Scheduling, Background documented as of this encounter Visit Diagnoses Not on filedocumented in this encounter Additional Health Concerns Active Problems Noted Date Diagnosed Date OB Reminders 04/30/2024 documented as of this encounter Care Teams Automotive Sales Executive Relationship Specialty Start Date End Date Omer Velazquez MD [address] [place] [address] PCP - General Internal Medicine 10/05/22 documented as of this encounter
--- OUTSIDE RECORDS SUMMARY | 2024-10-24 15:50 | XMS_ITS | Encounter Summary ---
Author Organization [facility] Address [address] [place] [address] Care Team Providers Care Supervisor Sandblaster Name Role Phone Omer Velazquez MD Primary Care Provider [phone] Encounter Details Date Type Department Care Team (Late st Contact Info) Description 01/06/2023 Abstract N[facility]Timothy [facility] [address] [facility] 210 [place] [address] Robles Goldsmith DO [address] [facility] 210 [place] [address] Social History Tobacco Use Types Packs/Day Years [...] AM EDT Visit [facility] [place] [facility] [address] [place] [phone] Saravanan Ahumada DO [address] [place], [place] [address] 07/24/2025 9:15 AM EDT Office Visit [facility] [address] [facility] 230 [place] [address] documented as of this encounter Visit Diagnoses Not on filedocumented in this encounter Care Teams Supervisor Sandblaster Relationship Specialty Start Date End Date Omer Velazquez MD [address] [place] [address] PCP - General Internal Medicine 10/05/22 documented as of this encounter
--- OUTSIDE RECORDS SUMMARY | 2024-10-24 15:50 | XMS_ITS | Encounter Summary ---
Author Organization [facility] Address [address] [place] [address] Care Team Providers Care Glue Sprayer Name Role Phone Omer Velazquez MD Primary Care Provider [phone] Encounter Details Date Type Department Care Team (Late st Contact Info) Description 07/20/2023 Orders Only [facility]othy [place] [facility] Medicine [address] [place] [address] A, Unknown Practice [address] [place], [place] [address] Social History Tobacco Use Types Packs/Day Years [...] [address] [facility] [place] [address] Saravanan Ahumada, [address] [place] [address] 07/24/2025 9:15 AM EDT Office Visit [facility] [address] [facility] [address] [place] [address] documented as of this encounter Procedures Procedure Name Priority Date/Time Associated Diagnosis Comments SCANNED LABS Routine 07/20/2023 2:45 PM EDT documented in this encounter Results * SCANNED LABS (07/20/2023 2:45 PM EDT) us Unknown Practice A LAB CHG PERFORMABLES Final Re sult documented in this encounter Visit Diagnoses Not on filedocumented in this encounter Care Teams Glue Sprayer Relationship Specialty Start Date End Date Omer Velazquez MD [address] [place] [address] PCP - General Internal Medicine 10/05/22 documented as of this encounter
--- OUTSIDE RECORDS SUMMARY | 2024-10-24 15:50 | XMS_ITS | Encounter Summary ---
Author Organization [facility] Address [address] [place] [address] Care Team Providers Care Phonograph Needle Tip Maker Name Role Phone Omer Velazquez MD Primary Care Provider [phone] Encounter Details Date Type Department Care Team (Late st Contact Info) Description 01/13/2023 Orders Only [facility]othy [place] [facility] [address] [facility] [address] [place] [address] Shelby Hernandez PA [address] [place] [address] Social History Tobacco Use Types Packs/Day Years [...] AM EDT Visit [facility]othy [place] [facility] [address] [place] [address] Saravanan Ahumada DO [address] [place] [address] 07/24/2025 9:15 AM EDT Office Visit [facility] [address] [place] [address] documented as of this encounter Visit Diagnoses Not on filedocumented in this encounter Care Teams Phonograph Needle Tip Maker Relationship Specialty Start Date End Date Omer Velazquez MD [address] [place] [address] PCP - General Internal Medicine 10/05/22 documented as of this encounter
--- OUTSIDE RECORDS SUMMARY | 2024-10-24 15:50 | XMS_ITS | Encounter Summary ---
Author Organization [facility] Address [address] [place] [address] Care Team Providers Care Molecular Spectroscopist Name Role Phone Omer Velazquez MD Primary Care Provider [phone] Encounter Details Date Type Department Care Team (Late st Contact Info) Description 05/01/2024 Abstract [facility] [place] [facility] [address] [facility] [place] [address] Saravanan Ahumada DO [address] [facility] [place] [address] Social History Tobacco Use Types Packs/Day Years [...] AM EDT Visit [facility] [place] [facility] [address] [facility] [place] [address] Saravanan Ahumada DO [address] [facility] [place] [address] 07/24/2025 9:15 AM EDT Office Visit N[facility]Timothy [facility] Internal Medicine [address] [place] [address] documented as of this encounter Goals Goal Patient Goal Type Associated Problems Recent Progress Patient-Stated? Author Reminders Care Plan OB Reminders No Open Scheduling, Background documented as of this encounter Visit Diagnoses Not on filedocumented in this encounter Additional Health Concerns Active Problems Noted Date Diagnosed Date OB Reminders 04/30/2024 documented as of this encounter Care Teams Molecular Spectroscopist Relationship Specialty Start Date End Date Omer Velazquez MD [address] [place] [address] PCP - General Internal Medicine 10/05/22 documented as of this encounter
--- OUTSIDE RECORDS SUMMARY | 2024-10-24 15:50 | XMS_ITS | Encounter Summary ---
Author Organization [facility] Address [address] [place] [address] Care Team Providers Care Senior Administrator Support Name Role Phone Robles Goldsmith DO Unavailable [phone] Josefina Harris RN Unavailable [phone] Source Comments In the event this information is protected by the Federal Confidentiality of Alcohol and Drug AbusePatient Records regulations: The Federal rules restrict any use of the information to criminally investigate or prosecute any alcohol or drug abuse patient.[facility] Encounter Details Date Type Department Care Team (Late st Contact Info) Description 02/17/2024 Patient Msg Reproductive Endocrinology Infertility [address] [place] [address] Shaina Edge MD [address] [place] [id number] PCOS supplements Social History Tobacco Use Types [...] is lower risk 4 12/21/2023 Data from: https://www.neighborhoodatlas.medicine.[facility]/. Last address used for calculation [address] 12/21/2023 Comments No Sex and Gender Information Value Date Recorded Sex Assigned at Female 01/04/2023 6:38 PM EDT Legal Sex Female 10:39 AM EDT Gender Identity Female 01/04/2023 6:38 PM EDT Sexual Orientation Not on file documented as of this encounter Plan of Treatment Not on file documented as of this encounter Visit Diagnoses Not on filedocumented in this encounter Care Teams Senior Administrator Support Relationship Specialty Start Date End Date Robles Goldsmith DO [address] [place] [address] Referring Obstetrics 10/13/22 [place] [address] [address] [place], [place] [phone] Specialty Door To Door Salesperson 04/12/24 documented as of this encounter
--- OUTSIDE RECORDS SUMMARY | 2024-10-24 15:50 | XMS_ITS | Encounter Summary ---
Author Organization [facility] Address [address] [place] [address] Phone Care Team Providers Care Forest Botany Instructor Name Role Phone Omer Velazquez MD Primary Care Provider [phone] Encounter Details Date Type Department Care Team (Late st Contact Info) Description 10/18/2024 Scanned Document [facility] [address] [place] [phone] Scanning, Generic Provider Social History Tobacco Use [...] documented as of this encounter Care Teams Forest Botany Instructor Relationship Specialty Start Date End Date Omer Velazquez MD [address] [place] [address] PCP - General Internal Medicine 02/14/24 documented as of this encounter
--- OUTSIDE RECORDS SUMMARY | 2024-10-24 15:50 | XMS_ITS | Encounter Summary ---
Author Organization [facility] Address [address] [place] [address] Care Team Providers Care Hole Digger Operator Name Role Phone Robles Goldsmith DO Unavailable [phone] Josefina Harris RN Unavailable [phone] Source Comments In the event this information is protected by the Federal Confidentiality of Alcohol and Drug AbusePatient Records regulations: The Federal rules restrict any use of the information to criminally investigate or prosecute any alcohol or drug abuse patient.[facility] Encounter Details Date Type Department Care Team (Late st Contact Info) Description 09/10/2023 Patient Msg Reproductive Endocrinology Infertility [address] [place] [address] Haritha Casiano APRN.GRAVES REGISTRATION SPECIALIST [address] [place] [address] IUI facts Social History Tobacco Use Types [...] on filedocumented in this encounter Care Teams Hole Digger Operator Relationship Specialty Start Date End Date Robles Goldsmith DO [address] [facility] [address] [place] [address] Referring Obstetrics 10/13/22 [place] [address] [place] [address] Specialty .Net Programmer 04/12/24 documented as of this encounter
--- OUTSIDE RECORDS SUMMARY | 2024-10-24 15:50 | XMS_ITS | Encounter Summary ---
Author Organization [facility] Address [address] [place] [address] Care Team Providers Care Cart Pusher Name Role Phone Lito Guerrero MD Primary Care Provider [phone] Encounter Details Date Type Department Care Team (Late st Contact Info) Description 10/17/2024 Clinisync Result Encounter NOMS External Department Unsolicited Saravanan Ahumada, DO [address] [facility] [place] [address] Social History Tobacco Use Types Packs/Day Years [...] AM EDT Visit [facility] [address] [place] [address] Saravanan Ahumada DO [address] [place] [address] 07/24/2025 9:15 AM EDT Office Visit [facility] Internal Medicine [address] [place] [address] documented as of this encounter Goals Goal [...] PM EDT Narrative 10/17/2024 5:02 PM EDT [address] [address] Ultrasound Report Signed Patient: LITO ROJAS MR#: [id number] : 1995 Acct:[id number] Age/Sex: 29 / F ADM Date: 10/17/24 Loc: [facility] 251-[address]: Saravanan Ahumada D.O. Ordering Physician: Saravanan Ahumada D.O. Date of Service: 10/17/24 Procedure(s): US OB BPP w non-stress Accession Number(s): [id number] cc: Saravanan Ahumada D.O.; LITO GUERRERO [address] [address] Patient Name: LITO ROJAS MRN: [id number] date: 1995 Sex: F Assigned Patient Location: [facility] Current Patient Location: [facility] Accession/Order Number: [id number] Exam Date: 10/17/2024 16:58 Report Date: 10/17/2024 [...] Barrett M.D. 10/17/2024 4:59 PM Dictation Location: [place] [address] Electronically authenticated by: [id number] Y Date: 10/17/2024 16:59 Dictated By: Kevin Barrett D.O. Signed By: 10/17/24 1702 DD/ 1659 TD/TT: Jd Edwards Consultant: Procedure Note Radiology, Radiologist, MD - 10/17/2024 [place] [address] Ultrasound Report Signed Patient: LITO ROJAS FMR#: [id number] : 1995Acct:[id number] Age/Sex: 29 / FADM Date: 10/17/24 Loc: [facility] 251-[address]: Saravanan Ahumada D.O. Ordering Physician: Saravanan Ahumada D.O. Date of Service: 10/17/24 Procedure(s): US OB BPP w non-stress Accession Number(s): [id number] cc: Saravanan Ahumada D.O.; LITO GUERRERO [place] [address] Patient Name: LITO ROJAS MRN: [id number] date: 1995 Sex: F Assigned Patient Location: [facility] Current Patient Location: [facility] Accession/Order Number: [id number] Exam Date: 10/17/2024 16:58 Report Date: 10/17/2024 [...] Barrett M.D. 10/17/2024 4:59 PM Dictation Location: [place] Electronically authenticated by: [id number] Y Date: 6:59 Dictated By: Kevin Barrett D.O. Signed By:10/17/24 1702 DD/ 165 TD/TT: Jd Edwards Consultant: us Saravanan Ahumada DO [facility] Final Result documented in this encounter Visit Diagnoses Not on filedocumented in this encounter Additional Health Concerns Active Problems Noted Date Diagnosed Date OB Reminders 04/30/2024 documented as of this encounter Care Teams Cart Pusher Relationship Specialty Start Date End Date Lito Guerrero MD [address] [facility] [address] [place] [address] PCP - General Internal Medicine 10/05/22 documented as of this encounter
--- OUTSIDE RECORDS SUMMARY | 2024-10-24 15:50 | XMS_ITS | Encounter Summary ---
Author Organization [facility] Address [address] [place] [address] Care Team Providers Care Casting Director Name Role Phone Omer Velazquez MD Primary Care Provider Encounter Details Date Type Department Care Team (Late st Contact Info) Description 10/05/2022 Abstract N[facility]Timothy LAFLEUR [address] [facility] [address] [place] [address] Robles Goldsmith DO [address] [facility] [address] [place] [address] Social History Tobacco Use Types Packs/Day Years [...] Description 12/11/2024 8:50 AM EDT Visit HEENA LAFLEUR [address] [place] [address] Saravanan Ahumada DO [address] [place] [address] 07/24/2025 9:15 AM EDT Office Visit [facility] Internal [facility] [address] [place] [address] documented as of this encounter Visit Diagnoses Not on filedocumented in this encounter Care Teams Casting Director Relationship Specialty Start Date End Date Omer Velazquez MD [address] [place] [address] PCP - General Internal Medicine 10/05/22 documented as of this encounter
--- OUTSIDE RECORDS SUMMARY | 2024-10-24 15:50 | XMS_ITS | Encounter Summary ---
Author Organization [facility] Address [address] [place] [address] Care Team Providers Care Erp Pm Name Role Phone Robles Goldsmith DO Unavailable [phone] Josefina Harris RN Unavailable [phone] Source Comments In the event this information is protected by the Federal Confidentiality of Alcohol and Drug AbusePatient Records regulations: The Federal rules restrict any use of the information to criminally investigate or prosecute any alcohol or drug abuse patient.[facility] Encounter Details Date Type Department Care Team (Late st Contact Info) Description 01/20/2023 Get Medical Advice Reproductive Endocrinology Infertility [address] [place] [address] Shaina Edge MD [facility] [place] [id number] ATTN: Domenica Social History Tobacco Use Types [...] on filedocumented in this encounter Care Teams Erp Pm Relationship Specialty Start Date End Date Robles Goldsmith DO [address] [facility] [address] [place] [phone] Referring Obstetrics 10/13/22 [place] [address] [place] [address] Specialty Supervisor Rod Placing 04/12/24 documented as of this encounter
--- OUTSIDE RECORDS SUMMARY | 2024-10-24 15:50 | XMS_ITS | Encounter Summary ---
Author Organization [facility] tem Address [facility]-[id number] [address] [place] [address] Care Team Providers Care Breakfast Server Name Role Phone Unavailable Primary Care Provider Unavailabl e Encounter Details Date Type Department Care Team (Late st Contact Info) Description 10/24/2024 Orders Only Maternal- Medicine at [facility] [address] [place] [phone] Ref Prov, [place] [address] Social History Tobacco Use Types Packs/Day Years [...] Procedure Name Priority Date/Time Associated Diagnosis Comments ECHO COMPLETE WO CONTRAST Routine 10/18/2024 8:37 AM EDT HOLTER MONITOR 14 DAYS Routine 09/20/2024 8:50 AM EDT documented in this encounter Results * Echo complete W/O contrast (10/18/2024 8:37 AM EDT) Anatomical Region Laterality Modality Chest N/A Ultrasound us Not In System Ref Prov CV ECHO ORDERABLES Final Result * Holter monitor 14 days (09/20/2024 8:50 AM EDT) Anatomical Region Laterality Modality Chest N/A Other us Not In System Ref Prov CV CARDIAC SERVICES ORDER JONATHAN Final Result documented in this encounter Visit Diagnoses Not on filedocumented in this encounter
--- OUTSIDE RECORDS SUMMARY | 2024-10-24 15:50 | XMS_ITS | Encounter Summary ---
Author Organization [facility] Address [address] [place] [address] Care Team Providers Care Interior Horticulturist Name Role Phone Robles Goldsmith Benitez DO Unavailable [phone] Josefina Harris RN Unavailable [phone] Source Comments In the event this information is protected by the Federal Confidentiality of Alcohol and Drug AbusePatient Records regulations: The Federal rules restrict any use of the information to criminally investigate or prosecute any alcohol or drug abuse patient.[facility] Encounter Details Date Type Department Care Team (Late st Contact Info) Description 09/02/2023 Get Medical Advice Endocrinology [address] [place] [address] Mirta Valderrama MD [address] [place] [address] Follow up questions Social History [...] ovaries documented in this encounter Care Teams Interior Horticulturist Relationship Specialty Start Date End Date Robles Goldsmith DO [address] [phone] Referring Obstetrics 10/13/22 [place] [address] [place] [address] Specialty Professor Of Finance 04/12/24 documented as of this encounter
--- OUTSIDE RECORDS SUMMARY | 2024-10-24 15:50 | XMS_ITS | Encounter Summary ---
Author Organization [facility] Address [address] [place] [address] Care Team Providers Care Chair Car Driver Name Role Phone Omer Velazquez MD Primary Care Provider [phone] Encounter Details Date Type Department Care Team [...] AM EDT Visit [facility] [address] [facility] [place] [phone] Saravanan Ahumada, [address] [facility] [place] [address] 07/24/2025 9:15 AM EDT Office Visit HEENA Hassan Internal Medicine [address] [place] [address] documented as of this encounter Goals Goal [...] LACTATE DEHYDROGENASE 146 81 - 234 U/L [facility]H 10/16/2024 9:48 AM EDT 10/16/2024 9:50 AM EDT Narrative [facility] - 10/16/2024 11:27 AM EDT Generic External Data Provider [facility] F inal Result Performing Organization Address City/[facility] Co de Phone Number [facility] TB * (ABNORMAL) [facility] AST (10/16/2024 9:48 AM EDT) ASPARTATE AMINO TRANSFERASE 12(L) 15 - 37 U/L [facility] 10/16/2024 9:48 AM EDT 10/16/2024 9:50 AM EDT Narrative [facility] - 10/16/2024 11:27 AM EDT Generic External Data Provider [facility] F inal Result Performing Organization Address [facility] de Phone Number [facility] TB * ALL URIC ACID (10/16/2024 9:48 AM EDT) URIC ACID 3.5 2.6 - 6.0 mg/dL TB 10/16/2024 9:48 AM EDT 10/16/2024 9:50 AM EDT Narrative [facility] - 10/16/2024 11:27 AM EDT Generic External Data Provider [facility] F inal Result Performing Organization Address [facility] de Phone Number CLINISYDENISE TB * (ABNORMAL) TBH CREATININE (10/16/2024 9:48 AM EDT) CREATININE 0.52(L) 0.55 - 1.02 mg/dL TBH TBH EGFR-AF [place] >60 >=60 mL/min/1.7 3m 2 TBH TBH EGFR-NON AF [place] >60 >=60 mL/min/1.7 3m 2 TBH 10/16/2024 9:48 AM EDT 10/16/2024 9:50 AM EDT Narrative CLINISYNC - 10/16/2024 11:27 AM EDT Generic External Data Provider [facility] F inal Result Performing Organization Address City/[facility] Co de Phone Number [facility] * (ABNORMAL) ALL BUN (10/16/2024 9:48 AM EDT) BLOOD UREA NITROGEN 6.0(L) 7.0 - 18.0 mg/dL TB 10/16/2024 9:48 AM EDT 10/16/2024 9:50 AM EDT Narrative CLINISYNC - 10/16/2024 11:27 AM EDT Generic External Data Provider [facility] F inal Result Performing Organization Address [facility] de Phone Number [facility] * [facility] APTT (10/16/2024 9:48 AM EDT) PARTIAL THROMBOPLASTIN TIME 25.4 22.3 - 36.2 sec TB 10/16/2024 9:48 AM EDT 10/16/2024 9:50 AM EDT Narrative [facility] - 10/16/2024 10:10 AM EDT Selina PRADHANISYDENISE Final Result Performing Organization Address [facility] Phone Number [facility] * SRMCOH PROTHROMBIN TIME INR W/O [...] NP [facility]IN[facility] Final Result Performing Organization Address [facility] de Phone Number [facility] * (ABNORMAL) ALL CBC WITH AUTO DIFF (10/16/2024 9:48 AM EDT) [facility] TB WBC 9.6 4.0 - 11.0 10 [...] - 10/16/2024 10:01 AM EDT Selina Janiya MULTI DISCIPLINED LANGUAGE ANALYST [facility] Final Result [facility] documented in this encounter Visit Diagnoses Not on filedocumented in this encounter Additional Health Concerns Active Problems Noted Date Diagnosed Date OB Reminders 04/30/2024 documented as of this encounter Care Teams Chair Car Driver Relationship Specialty Start Date End Date Omer Velazquez MD [address] [facility] [address] [place] [address] PCP - General Internal Medicine 10/05/22 documented as of this encounter
--- OUTSIDE RECORDS SUMMARY | 2024-10-24 15:50 | XMS_ITS | Encounter Summary ---
Author Organization [facility] Address [address] [place] [address] Care Team Providers Care Light Truck Driver Name Role Phone Omer Velazquez MD Primary Care Provider [phone] Encounter Details Date Type Department Care Team (Late st Contact Info) Description 10/16/2024 Telephone NOMS Shannon LAFLEUR [address] [place] [address] [place], [place] [address] [place] [address] Social History Tobacco Use Types Packs/Day Years [...] [address] [facility] [place] [address] Saravanan Ahumada DO [address] [facility] [place] [address] 07/24/2025 9:15 AM EDT Office Visit N[facility]Timothy Hassan Internal Medicine [address] [facility] [address] [place] [address] documented as of this encounter Goals Goal Patient Goal Type Associated Problems Recent Progress Patient-Stated? Author Reminders Care Plan OB Reminders No Open Scheduling, Background documented as of this encounter Visit Diagnoses Diagnosis Anemia, unspecified type documented in this encounter Additional Health Concerns Active Problems Noted Date Diagnosed Date OB Reminders 04/30/2024 documented as of this encounter Care Teams Light Truck Driver Relationship Specialty Start Date End Date Omer Velazquez MD [address] [place] [address] PCP - General Internal Medicine 10/05/22 documented as of this encounter
--- OUTSIDE RECORDS SUMMARY | 2024-10-24 15:51 | XMS_ITS | Encounter Summary ---
Author Organization [facility] tem Address [id number] [address] [place] [address] Care Team Providers Care Delivery Nurse Name Role Phone Unavailable Primary Care Provider Unavailabl e Encounter Details Date Type Department Care Team (Late st Contact Info) Description 09/14/2024 Orders Only Maternal- Medicine at [facility] [address] [place] [phone] Torrie Posada, ARIC Social History Tobacco Use Types Packs/Day Years [...]
--- OUTSIDE RECORDS SUMMARY | 2024-10-24 15:51 | XMS_ITS | Encounter Summary ---
Author Organization [facility] Address [address] [place] [address] Care Team Providers Care Senior Office Assistant Name Role Phone Omer Velazquez MD Primary Care Provider [phone] Encounter Details Date Type Department Care Team (Late st Contact Info) Description 05/01/2024 Abstract [facility] OBG[facility] [address] [facility] [place] [phone] Saravanan Ahumada DO [address] [facility] [place] [address] Social History Tobacco Use Types Packs/Day Years [...] [facility] [place] [address] Saravanan Ahumada DO [address] [facility] [place] [address] 07/24/2025 9:15 AM EDT Office Visit N[facility]Timothy Hassan Internal Medicine [address] [place] [address] documented as of this encounter Goals Goal Patient Goal Type Associated Problems Recent Progress Patient-Stated? Author Reminders Care Plan OB Reminders No Open Scheduling, Background documented as of this encounter Visit Diagnoses Not on filedocumented in this encounter Additional Health Concerns Active Problems Noted Date Diagnosed Date OB Reminders 04/30/2024 documented as of this encounter Care Teams Senior Office Assistant Relationship Specialty Start Date End Date Omer Velazquez MD [address] [place] [address] PCP - General Internal Medicine 10/05/22 documented as of this encounter
--- OUTSIDE RECORDS SUMMARY | 2024-10-24 15:51 | XMS_ITS | Encounter Summary ---
Author Organization [facility] tem Address [facility]-[id number] [address] [place] [address] Care Team Providers Care Cleaning Custodian Name Role Phone Unavailable Primary Care Provider Unavailabl e Encounter Details Date Type Department Care Team (Late st Contact Info) Description 10/17/2024 Telephone Maternal- Medicine at [facility] [address] [place] [address] Nereyda Bishop LD [address] [place] [address] Social History Tobacco Use Types Packs/Day Years [...]
--- OUTSIDE RECORDS SUMMARY | 2024-10-24 15:51 | XMS_ITS | Encounter Summary ---
Author Organization [facility] tem Address [id number] [address] [place] [address] Care Team Providers Care Pharmaceutical Engineer Name Role Phone Unavailable Primary Care Provider Unavailabl e Encounter Details Date Type Department Care Team (Late st Contact Info) Description 10/04/2024 Telephone Maternal- Medicine at [facility] [address] [place] [address] Aranza Beltran, RN Social History [...]
--- OUTSIDE RECORDS SUMMARY | 2024-10-24 15:51 | XMS_ITS | Encounter Summary ---
[facility] Address [id number] [address] [place] [address] Care Team Providers Care Florist Manager Name Role Phone Unavailable Primary Care [...]
--- OUTSIDE RECORDS SUMMARY | 2024-10-24 15:51 | XMS_ITS | Clinical Summary ---
Author Organization [employer] s tem Address [id number] [address] [place] [address] Care Team Providers Care Time Study Clerk Name Role Phone Unavailable Primary Care Provider Unavailabl e Allergies No known active allergies Medications [id number] ic acid ( 19) 29 mg iron- 1 mg tablet,chewabl e Chew 1 tablet and swallow in the morning. Active blood-glucose sensor (DEXCOM G7 SENSOR) deviceIndicati ons:Gestationa l diabetes requiring insulin,Elevat ed blood pressure affecting , antepartum Use to monitor blood glucose. Change every 10 days 5 each 10 5 Active acyclovir (ZOVIRAX) 400 mg tablet Take 1 tablet (400 mg total) by mouth in the morning and 1 tablet (400 mg total) before bedtime. Active ferrous sulfate 325 (65 FE) MG tablet Take 1 tablet (325 mg total) by mouth daily with breakfast. Active insulin glargine (LANTUS SOLOSTAR U-100 INSULIN) 100 unit/mL (3 mL) insulin penIndications :Gestational diabetes requiring insulin Inject 17 units every evening. Prime with 2 units. 15 mL 2 5 Active insulin glargine (LANTUS SOLOSTAR U-100 INSULIN) 100 unit/mL (3 mL) insulin penIndications :Gestational diabetes requiring insulin Inject 16 units every evening. Prime with 2 units. 15 mL 2 5 10/24/19 25 Discontinued Active Problems Problem Noted Date Diagnosed Date Non-sustained ventricular tachycardia 10/23/2024 Pre-eclampsia in third trimester 10/23/2024 Gestational diabetes requiring insulin Insulin controlled gestation al diabetes mellitus (GDM) in third trimester 09/12/2024 Abnormal liver enzymes 09/12/2024 Elevated blood pressure affecting , ant epartum 09/12/2024 Estimated Date of Delivery Comme nts Yes 11/19/2024 Based on last me nstrual period of 02/13/2024 Encounters Date Type Department Care Team Description 10/24/2024 Documentation Maternal- Medicine at [place] [address] [place] [address] Yesi Meade, DEBBIE-LYNDSAYM 10/24/2024 Orders Only Maternal- Medicine at [address] [address] Ref Prov, Not In System 10/23/2024 8:30 AM EDT Office Visit Maternal- Medicine at [place] [address] [place] [address] Vy Pemberton MD 36 weeks gestation of (Primary Dx); Gestational diabetes requiring insulin; Pre-eclampsia in third trimester; Non-sustained ventricular tachycardia ([facility]) 10/23/2024 Travel 10/17/2024 Telephone Maternal- Medicine at [place] [address] [place] [address] Nereyda Bishop LD 10/11/2024 2:00 PM EDT Office Visit Maternal- Medicine at [place] [address] [place] [address] Siria Rebolledo, DIAL BRUSHER-DEATH SURVEYS CODER Insulin controlled gestational diabetes mellitus (GDM) in third trimester (Primary Dx) 10/11/2024 Travel 10/04/2024 Telephone Maternal- Medicine at [place] [address] [place] [address] Aranza Beltran, ARIC 09/20/2024 11:00 AM EDT Telemedicine Maternal- Medicine at [place] [address] [place] [address] Siria Rebolledo, DIAL BRUSHER-DEATH SURVEYS CODER Insulin controlled gestational diabetes mellitus (GDM) in third trimester (Primary Dx); Gestational diabetes requiring insulin 09/20/2024 Travel 09/18/2024 Orders Only Maternal- Medicine at [facility] [address] [place] [address] Corby Rose, PRINTED CIRCUIT BOARD PANELS DEBURRER Gestational diabetes requiring insulin; Elevated blood pressure affecting , antepartum; Insulin controlled gestational diabetes mellitus (GDM) in third trimester; Abnormal liver enzymes 09/14/2024 Orders Only Maternal- Medicine at [facility] [address] [place] [address] Torrie Posada RN 09/12/2024 10:00 AM EDT Office Visit Maternal- Medicine at [facility] [address] [place] [address] Ruthann Miller PA-C Insulin controlled gestational diabetes mellitus (GDM) in third trimester; Abnormal liver enzymes; Abnormal genetic test; Gestational diabetes requiring insulin; Elevated blood pressure affecting , antepartum 09/12/2024 Documentation Maternal- Medicine at [facility] [address] [place] [address] Ruthann Miller PA-C 09/12/2024 Travel 09/06/2024 Orders Only Maternal- Medicine at [facility] [address] [place] [address] Yesi Meade APRN-LYNDSAYM 09/05/2024 Telephone Maternal- Medicine at [facility] [address] [place] [address] Aranza Beltran, ARIC 09/05/2024 Orders Only Maternal- Medicine at [facility] [address] [place] [address] Jacskon Cruz MD 08/31/2024 1:30 PM EDT Support Visit Maternal- Medicine at [facility] [address] [place] [address] Cristiana Zuñiga RN Nereyda Bishop LD Gestational diabetes mellitus (GDM) in third trimester, gestational diabetes method of control unspecified (Primary Dx) 08/31/2024 Travel 08/30/2024 Orders Only Maternal- Medicine at [facility] [address] [place] [address] Ref Prov, Not In System 08/30/2024 Abstract Maternal- Medicine at [facility] [address] [place] [address] External, Scanning Provider from Last 3 Months [...] Mass Index 40.35 10/23/2024 8:32 AM EDT Plan of Treatment Health Maintenance Due Date Last Done Comments Depression Screening 2007 Adult BMI Follow Up Plan 2013 Influenza Vaccine 11/27/2024 01/30/2015, 02/13/2009 Adult BMI Screening 10/23/2025 10/23/2024 Tobacco Screening 10/23/2025 10/23/2024 Pap Smear 06/20/2027 06/19/2024 DTaP,Tdap and Td Vaccines (7 - Td or Tdap) 06/26/2032 06/26/2022, 08/10/2000, 08/04/1996, Additional history exists Medical Devices Not on file Procedures Procedure Name Priority Date/Time Associated Diagnosis Comments ECHO COMPLETE WO CONTRAST Routine 10/18/2024 8:37 AM EDT HOLTER MONITOR 14 DAYS Routine 09/20/2024 8:50 AM EDT CBC (NO DIFF) Routine 09/12/2024 Insulin controlled [...] 08/23/2024 from Last 3 Months Results * Echo complete W/O contrast (10/18/2024 8:37 AM EDT) Anatomical Region Laterality Modality Chest N/A Ultrasound us Not In System Ref Prov CV ECHO ORDERABLES Final Result * Holter monitor 14 days (09/20/2024 8:50 AM EDT) Anatomical Region Laterality Modality Chest N/A Other us Not In System Ref Prov CV CARDIAC SERVICES ORDER JONATHAN Final Result * Urine protein creatinine ratio (09/12/2024) Prot/Creat Ratio, Ur see scanned report MANUALLY TRANSCRIBED RESULTS Urine Urine specimen collection, clean catch / Unknown 09/12/2024 Ruthann Miller PA-C URINE ORDERABLES Final Resu lt Performing Organization Address [facility] de Phone Number MANUALLY TRANSCRIBED RESULTS * CBC without diff (09/12/2024) CBC, Platelet Ct, and Diff see scanned report MANUALLY TRANSCRIBED RESULTS Blood Venous blood / Unknown 09/12/2024 Ruthann THAYER-Arlin LAB BLOOD ORDERABLES Final Result Performing Organization Address [facility] de Phone Number MANUALLY TRANSCRIBED RESULTS * Glucose random or fasting- POCT (08/31/2024) External Glucose Fasting Or Random (Fbs) 99 MANUALLY TRANSCRIBED RESULTS Blood Venous blood / Unknown 08/31/2024 Jackson Cruz MD LAB BLOOD ORDERABLES Final Re sult Performing Organization Address [facility] Co de Phone Number MANUALLY TRANSCRIBED RESULTS * Glucose 1h post 50g load (08/23/2024) Glucose, 1 hr PP 50GM dose 181 MANUALLY TRANSCRIBED RESULTS Blood Venous blood / Unknown us Not In System Ref Prov LAB BLOOD ORDERABLES Breanna l Result Performing Organization Address [facility] Co de Phone Number MANUALLY TRANSCRIBED RESULTS from Last 3 Months Insurance [employer] Member Subscriber Plan / Payer (Ef fective 2024-Present) Name:Lissa Rivas Relation to Subscriber:Spouse Name:Brenton Rivas Date of :1993 Address: [address] [place] [id number] Payer ID:Not on file Type:Not on file Address: [facility] [address] [id number]
--- OUTSIDE RECORDS SUMMARY | 2024-10-24 15:51 | XMS_ITS | Encounter Summary ---
Author Organization [facility] Address [address] [place] [address] Care Team Providers Care Heater Furnace Name Role Phone Robles Goldsmith DO Unavailable [phone] Josefina Harris RN Unavailable [phone] Source Comments In the event this information is protected by the Federal Confidentiality of Alcohol and Drug AbusePatient Records regulations: The Federal rules restrict any use of the information to criminally investigate or prosecute any alcohol or drug abuse patient.[facility] Encounter Details Date Type Department Care Team (Late st Contact Info) Description 10/22/2023 Patient Msg Reproductive Endocrinology Infertility [address] [place], [place] [id number] Provider, Alli 10/26/23 Social History Tobacco Use [...] on filedocumented in this encounter Care Teams Heater Furnace Relationship Specialty Start Date End Date Robles Goldsmith [address] [facility] [address] [place] [address] Referring Obstetrics 10/13/22 [place] [address] [place] [address] Specialty Cost And Sales Record Supervisor 04/12/24 documented as of this encounter
--- NOTE | 2024-10-24 16:05 | US_ITS ---
[place] [address] Patient Name: LITO ROJAS MRN: [id number] date: 1995 Sex: F Assigned Patient Location: [facility] Current Patient Location: Accession/Order Number: [id number] Exam Date: 10/24/2024 22:00 Report Date: 10/24/2024 22:02 At the request of: NEGAR GONZALEZ DO Procedure: US OB BPP w non-stress Ultrasound biophysical profile HISTORY: Gestational diabetes Comparison 10/17/2024 Findings: Adequate breathing movement, gross body movement, tone and amniotic fluid volume for total score of 8 out of 8. The amniotic fluid index is 16.6cm within normal limits. The heart rate 145 bpm. US/US OB BPP w non-stress IMPRESSION: 8 out of 8 biophysical profile score Impression dictated by: Jose Levine M.D. 10/24/2024 10:02 PM Dictation Location: [place] [address] Electronically authenticated by: [id number] Y Date: 10/24/2024 22:02
[2024-10-24 16:53] VITALS: BP 136/91; PULSE 96
[2024-10-24 16:59] LABS: Hematocrit 28.9 % (36.0-48.0); Hemoglobin 9.8 g/dL (12.0-16.0); Immature Granulocytes Abs Auto 0.08 10^3/uL (0.00-0.03); Immature Granulocytes Pct Auto 0.9 % (0.0-0.5); Lymphocytes Absolute Auto 1.7 10^3/uL (1.2-3.8); Mean Corpuscular HGB Conc 33.9 g/dL (29.9-35.2); Mean Corpuscular Hemoglobin 30.2 pg (26.7-34.0); Mean Corpuscular Volume 89.2 fL (81.0-99.0); Platelet Count 231 10^3/uL (150-450); Red Blood Count 3.24 10^6/uL (4.20-5.40); White Blood Count 9.4 10^3/uL (4.0-11.0)
[2024-10-24 17:08] LABS: Alanine Aminotransferase 20 U/L (14-59); Aspartate Amino Transferase 12 U/L (15-37); Blood Urea Nitrogen 8.0 mg/dL (7.0-18.0); Estimated GFR (African America >60 (>=60 mL/min/1.73m^2); Estimated GFR (Non-African Ame >60 (>=60 mL/min/1.73m^2); Uric Acid 3.7 mg/dL (2.6-6.0)
[2024-10-24 17:11] LABS: Partial Thromboplastin Time 24.7 sec (22.3-36.2); Prothrombin Time 9.8 sec (9.0-11.6)
[2024-10-24 17:12] LABS: INR <0.93
[2024-10-24 17:20] VITALS: BP 144/81; PULSE 90
== END 2024-10-24 17:33 | disposition home or self-care (01) ==
LOC: US 15:47 → FBC 15:59
PROVIDERS: PCP Internal Medicine; Visit Provider Obstetrics & Gynecology
DX: O24.419 Gestational diabetes mellitus in pregnancy, unspecified control (principal)
CPT/HCPCS: 36415; 76818; 82565; 83615; 84450; 84460; 84520; 84550; 85025; 85610; 85730

== ENCOUNTER 2024-10-26 14:19 | Outpatient (REF) | payer OTHER, SELFPAY ==
--- OUTSIDE RECORDS SUMMARY | 2017-11-10 05:30 | XMS_ITS | Continuity of Care Document ---
Author Organization [facility] Address [address] [place] [address] Phone Care Team Providers Care Supervisor Plastic Sheets Name Role Phone Lindsey LANIER, Torrie Pena [...] Providers Copied on Encounter OFFICE/OUTPAT IENT VISIT, [facility], [address] [place], [place], [id number], tel:[phone] [facility] Body mass index (BMI) 31.0-31.9, adultMorbid (severe) obesity due to excess calories Lindsey Brownlee. [address] [place] [address], [id number], [place]. tel:[phone] [facility], [address], [place], [id number], tel:[phone] [facility] Morbid (severe) obesity due to excess caloriesBody mass index (BMI) 31.0-31.9, adult Landon Stafford. [address], [place], [id number], [place]. tel:[phone] OFFICE/OUTPAT IENT VISIT, [facility], [address], [place], [id number], [place] tel:[phone] [facility] adipex # 3 (chief complaint) Body mass index (BMI) 32.0-32.9, adultMorbid (severe) obesity due to excess caloriesBody mass index (BMI) 33.0-33.9, adult Landon Stafford. [address] [place] [address], [id number], [place]. tel:[phone] OFFICE/OUTPAT IENT VISIT, [facility], [address] [place] [address], [id number], [place] tel:[phone] [facility] Adipex (chief complaint) Body mass index (BMI) 34.0-34.9, adultMorbid (severe) obesity due to excess caloriesBody mass index (BMI) 32.0-32.9, adult Landon Stafford. [address] [place], [place], [id number], [place]. tel:[phone] OFFICE/OUTPAT IENT VISIT, [facility], [address], [place], [id number], [place] tel:[phone] [facility] Body mass index (BMI) 34.0-34.9, adultMorbid (severe) obesity due to excess calories Landon Stafford. [address], [place], [id number], [place]. tel:[phone] [facility], [address] [place] [address], [id number], [place] tel:[phone] [facility] wt loss (chief complaint)a llergies (chief complaint) Abnormal weight gainMorbid (severe) obesity due to excess caloriesBody mass index (BMI) 34.0-34.9, adultAllergy, unspecified, initial encounter Landon Stafford. [address], [place], [id number], [place]. tel:[phone] [facility], [address] [place] [address], [id number], [place] tel:[phone] [facility] No Information Dixon Charles. [address], [place], [id number], [place]. tel:[phone] [facility], [address] [place] [address], [id number], [place] tel:[phone] [facility] No Information Dixon Charles. [address], [place], [id number], [place]. tel:[phone] OFFICE/OUTPAT IENT VISIT, [facility], [address], [place], [id number], [place] tel:[phone] [facility] infected toe (chief complaint)i mmunization (chief complaint) Ingrown nail Landon Stafford. [address] [place] [address], [id number], [place]. tel:[phone] Family History Family Member Type Diagnosis Age [...] Record Payers Payer name Insurance type Covered democrat ID Authoriza tion(s) No Information Social History [...] in the past. Pt sees a in [place] for [facility] practice. [place] allergies The patient pres ents [...] to Body mass index (BMI) 32.0-32.9, adult Dietary management e ducation, guidance, and [...] Mental Status Date Cognitive Assessment Orientation - [place] ed to time, place, person, situation.Normal Orientation Patient Care Teams Name Effective Dates (start - stop) Status Members No Information
--- OUTSIDE RECORDS SUMMARY | 2024-10-16 09:00 | XMS_ITS | Encounter Summary ---
Author Organization [facility] Address [address] [place] [address] Care Team Providers Care Item Processor Name Role Phone Omer Velazquez MD Primary Care Provider [phone] Reason for Visit * Reason Comments Routine Visit Encounter Details Date Type Department Care Team (Late st Contact Info) Description 10/16/2024 9:00 AM EDT Routine [facility] [place] [facility] [address] [place] [phone] Saravanan Ahumada DO [address] [place] [address] induced hypertension, antepartum (HHS-HCC) (Primary Dx); Third trimester ([facility]-H[facility]); 35 weeks gestation of ([facility]) Social History Tobacco Use Types Packs/Day Years [...] Sign Reading Time Taken Comments Blood Pressure 120/86 10/16/2024 9:03 AM EDT Pulse - - Temperature - - Respiratory Rate - - Oxygen Saturation - - Inhaled Oxygen Concentration - - Weight 104 kg (229 lb 4 oz) 10/16/2024 9:03 AM E DT Height - - Body Mass Index 40.61 07/18/2024 9:20 AM EDT documented in this encounter Progress Notes * Selina eDnson NP - 10/16/2024 9:00 AM EDT Reason for Appointment: Patient [...] nursing note reviewed. Exam conducted with a comparative sociology professor present. Vitals: Estimated body mass index is 40.61 kg/m?? as calculated from the following: Height as of 07/18/24: 5' 3 . Weight as of this encounter: 229 lb 4 oz. BP: 120/86 Patient's last menstrual period was 02/13/2024 (approximate). ASSESSMENT & PLAN ICD-10-CM 1. Third trimester ([facility]) Z34.93 POCT urinalysis dipstick manually resulted 2. 35 weeks gestation of ([facility]) Z3A.35 Return OB: Patient presents today for a routine obstetrics appointment. Patient is currently 35w1d . Patient states she is doing well but has complaints of being tired due to current . Patient has verbalizes frequent movement. labor precautions was discussed/given and patient was instructed to perform kick counts three times a day. Orders Placed This Encounter Procedures Creatinine Pt and ptt CBC and differential Uric acid Lactate dehydrogenase ALT AST BUN POCT urinalysis dipstick manually resulted Follow Up: Patient is to return to office in 1 week for routine OB appointment. Patient is doing well denies any headaches, blurred vision or significant edema. She continues to follow closely with [facility] and transmits glucose weekly. [facility] recommends pre-eclampsia labs every 2 weeks and those were given to Mary today. The recommendation was to considered planned delivery at 37 weeks. Continue NST/BPP. Documented by Selina Denson NP on behalf of: Selina Denson NP documented in this encounter Plan of Treatment Upcoming Encounters Date Type Department Care Team (Late st Contact Info) Description 12/11/2024 8:50 AM EDT Visit [facility] [address] [place] [address] Saravanan Ahumada DO [address] [place] [address] 07/24/2025 9:15 AM EDT Office Visit [facility] [address] [place] [phone] Scheduled Orders Name Type Priority Associated Diagnoses Orde r Schedule Creatinine Lab Routine induced hypertension, antepartum (HHS-HCC) Expected: 10/16/2024 (Approximate), Expires: 10/16/2025 Pt and ptt Lab Routine induced hypertension, antepartum (HHS-HCC) Expected: 10/16/2024, Expires: 10/16/2025 CBC and differential Lab Routine induced hypertension, antepartum (HHS-HCC) Expected: 10/16/2024 (Approximate), Expires: 10/16/2025 Uric acid Lab Routine induced hypertension, antepartum (HHS-HCC) Expected: 10/16/2024 (Approximate), Expires: 10/16/2025 Lactate dehydrogenase Lab Routine induced hypertension, antepartum (HHS-HCC) Expected: 10/16/2024, Expires: 10/16/2025 ALT Lab Routine induced hypertension, antepartum (HHS-HCC) Expected: 10/16/2024 (Approximate), Expires: 10/16/2025 AST Lab Routine induced hypertension, antepartum (HHS-HCC) Expected: 10/16/2024 (Approximate), Expires: 10/16/2025 BUN Lab Routine induced hypertension, antepartum (HHS-HCC) Expected: 10/16/2024, Expires: 10/16/2025 documented as of this encounter Goals Goal Patient Goal Type Associated Problems Recent Progress Patient-Stated? Author Reminders Care Plan OB Reminders No Open Scheduling, Background documented as of this encounter Procedures Procedure Name Priority Date/Time Associated Diagnosis Comments POCT URINALYSIS DIPSTICK Routine 10/16/2024 9:12 AM EDT Third trimester (HHS-HCC) documented in this encounter Results * (ABNORMAL) POCT urinalysis dipstick manually resulted (10/16/2024 9:12 AM EDT) Color, UA Yellow Clarity, UA Clear Glucose, UA Negative Negative - 1999(110) ++++ mg/dL Bilirubin, UA Negative Negative - 4(70) +++ mg/dL Ketones, UA Negative Negative - 160(16) ++++ mg/dL Spec Grav, UA 1.015 1 - 1.03 Blood, UA Negative Negative - 50 Jorge Luis/mcL pH, UA 7.0 5 - 9 Protein, UA Trace Negative - 1999(20) ++++ mg/dL Urobilinogen, UA 1.0 0.2 - 12 mg/dL Leukocytes, UA Negative Negative - 500+++ Flori/mcL Nitrite, UA Negative Negative - Positive Urine 10/16/2024 9:12 AM EDT Saravanan Ahumada DO POINT OF CARE TEST ENTER/EDIT OR DERABLES Final Result documented in this encounter Visit Diagnoses Diagnosis induced hypertension, antepartum (HHS-HCC)- Primary Transient hypertension of , antepartum Third trimester (HHS-HCC) state, incidental 35 weeks gestation of (HHS-HCC) documented in this encounter Additional Health Concerns Active Problems Noted Date Diagnosed Date OB Reminders 04/30/2024 documented as of this encounter Care Teams Item Processor Relationship Specialty Start Date End Date Omer Velazquez MD [address] [facility] [address] [place] [address] PCP - General Internal Medicine 10/05/22 documented as of this encounter
--- OUTSIDE RECORDS SUMMARY | 2024-10-23 08:30 | XMS_ITS | Encounter Summary ---
Author Organization [facility] tem Address [id number] [address] [place] [address] Care Team Providers Care Sound Editor Name Role Phone Unavailable Primary Care Provider Unavailabl e Reason for Visit * Reason Comments GDMA2 Encounter Details Date Type Department Care Team (Late st Contact Info) Description 10/23/2024 8:30 AM EDT Office Visit Maternal- Medicine at [facility] [address] [place] [phone] Vy Pemberton MD [address] [facility], [address] [place] [address] 36 weeks gestation of (Primary Dx); Gestational diabetes requiring insulin; Pre-eclampsia in third trimester; Non-sustained ventricular tachycardia ([facility]) Social History Tobacco Use Types Packs/Day Years [...] Sign Reading Time Taken Comments Blood Pressure 122/81 10/23/2024 8:32 AM EDT Pulse 93 10/23/2024 8:32 AM EDT Temperature - - Respiratory Rate - - Oxygen Saturation - - Inhaled Oxygen Concentration - - Weight 103.3 kg (227 lb 12.8 oz) 10/23/2024 8:32 AM EDT Height 160 cm (5' 3 ) 10/23/2024 8:32 AM EDT Body Mass Index 40.35 10/23/2024 8:32 AM EDT documented in this encounter Progress Notes * Samina Haywood RN - 10/23/2024 8:30 AM EDT Headache/epigastric pain/blurry vision/swelling? Bilateral hands swelling, denies other symptoms Cramping/contractions? Occasional uriah hick Spotting or vaginal bleeding? No Loss or gush of fluid like your water may have broken? No Recent ER visits or hospitalizations? No Any concerns that you would like me to mention to the provider today? Holter monitor results * Vy Pemberton MD - 10/23/2024 8:30 AM EDT Images from the original note were not included. REASON FOR OFFICE VISIT: follow up GDMA2; Preeclampsia without severe features - Most recent lab work was last week. 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 at 36w1d due on Estimated Date of Delivery: 11/19/24. Currently the patient has no complaints. The patient denies KEYS, nausea, vomiting, abdominal pain, vaginal bleeding, contractions, leaking fluid or chest pain. +FM. Denies current palpitations or chest pain. Past Medical History PAST OBSTETRICAL HISTORY: OB History 1 Para Term AB Living SAB IAB Ectopic Multiple Live Births SURGICAL HISTORY: Past Surgical History: Procedure Laterality Date EYE SURGERY ALLERGIES: No Known Allergies CURRENT MEDICATIONS: Current Outpatient Medications: acyclovir (ZOVIRAX) 400 mg tablet, Take 1 tablet (400 mg total) by mouth in the morning and 1 tablet (400 mg total) before bedtime., Disp: , Rfl: blood-glucose sensor (DEXCOM G7 SENSOR) device, Use to monitor blood glucose. Change every 10 days,Disp: 5 each, Rfl: 10 insulin glargine (LANTUS SOLOSTAR U-100 INSULIN) 100 unit/mL (3 mL) insulin pen, Inject 16 units every evening. Prime with 2 units., Disp: 15 mL, Rfl: 2 [id number] acid ( 19) 29 mg iron- 1 mg tablet,chewable, Chew 1 tablet and swallow in the morning., Disp: , Rfl: LABS: No results found for: GLUF , MICROALBUR , LDLCALC , CREATININE No results found for: TSH , T3 , TOTALT4 , THYROIDAB No results found for: [id number] No results found for: CREATININE , BUN [...] and vaginal discharge PHYSICAL EXAMINATION: LMP 02/13/2024 and heart rate present 157. Gravid abdomen, Alert & Oriented. Respirations not labored. ASSESSMENT AND PLAN Lissa Rivas is 29 y.o. at 36w1d 1. 36 weeks gestation of 2. Gestational diabetes requiring insulin - insulin glargine (LANTUS SOLOSTAR U-100 INSULIN) 100 unit/mL (3 mL) insulin pen; Inject 17 units every evening. Prime with 2 units. Dispense: 15 mL; Refill: 2 3. Pre-eclampsia in third trimester 4. Non-sustained ventricular tachycardia (CMS-HCC) When I saw the patient I did not have the full information from the cardiology office the records were requested and faxed to our office CGM was reviewed I increased her Lantus to 17 units nightly I gave her education on signs and symptoms of preeclampsia Risks of preeclampsia to her and the fetus discussed I reviewed with the patient that after I review her cardiology records I would further discuss delivery location with the her OBGYN. I reviewed with the patient that pending the Cardiology records she may have to deliver at [facility] and require telemetry as we also have in-house cardiology service. I reviewed with her that is an arrhythmogenic state and return precautions were given. She told me that the cardiologists have talked to her about a beta tamiko however since she has been currently asymptomatic she was concerned due to the risk of the fetus. Risk of beta blockers including increased risk growth and in the , including bradycardia, hypoglycemia and respiratory depression in the first 48 hours of life reviewed. She desires to further address this with her primary OB. After the patient left we received the information from the cardiology office. Upon review of the records she has a had a Zio patch from 08/24 to 09/07/2024. Overall there were no significant arrhythmias however there was one run of nonsustained ventricular tachycardia lasting [address] Ahumada and I reviewed with him her case. Based on the overall clinical picture of the recent change in the echocardiogram with a mild diastolic dysfunction and mildly dilated left atrium along with the concern for a prior run of NSVT I reviewed with him that I would recommend delivery at a tertiary care center such as [facility] and telemetry during labor and for 24 hours is recommended. During admission EP should be consulted. The patient should continue with twice weekly NSTs, weekly DVP, weekly preeclampsia labs and close monitoring of her BP Delivery recommended at 37 weeks and 0 days due to diagnosis of preeclampsia without severe features Please continue to address beta tamiko with the patient as recommended by Cardiology. She has beenprescribed propranolol from the aqua ammonia operator. Give half the dose of long-acting insulin the night before delivery All questions and concerns that Dr. Ahumada had were answered Vy Pemberton MD, FACOG (she/hers) Maternal- Medicine [facility] [address] [facility] [address] [place] [address] documented in this encounter Plan of Treatment Not on file documented as of this encounter Visit Diagnoses Diagnosis 36 weeks gestation of - Primary Gestational diabetes requiring insulin Abnormal maternal glucose tolerance, complicating , childbirth, or the puerperium, unspecified as to episode of care Pre-eclampsia in third trimester Non-sustained ventricular tachycardia ([facility]) documented in this encounter
--- OUTSIDE RECORDS SUMMARY | 2024-10-23 13:30 | XMS_ITS | Encounter Summary ---
Author Organization [facility] Address [address] [place] [address] Care Team Providers Care Blueberry Grower Name Role Phone Omer Velazquez MD Primary Care Provider [phone] Reason for Visit * Reason Comments Routine Visit Encounter Details Date Type Department Care Team (Late st Contact Info) Description 10/23/2024 1:30 PM EDT Routine [facility] [place] [address] [place] [phone] Saravanan Ahumada DO [address] [place] [address] Third trimester ([facility]); 36 weeks gestation of ([facility]); induced hypertension, antepartum ([facility]) Social History Tobacco Use Types Packs/Day Years [...] Sign Reading Time Taken Comments Blood Pressure 136/90 10/23/2024 1:52 PM EDT Pulse - - Temperature - - Respiratory Rate - - Oxygen Saturation - - Inhaled Oxygen Concentration - - Weight 103 kg (228 lb) 10/23/2024 1:52 PM EDT Height - - Body Mass Index 40.39 07/18/2024 9:20 AM EDT documented in this encounter Progress Notes * Kayla Ashley LPN - 10/23/2024 1:30 PM EDT Reason for Appointment: Patient ID: Thao Rivas is a 29 y.o. female who [...] MCG (2000 UT) tablet 2 tablets, Daily iron polysaccharides (PROFE) 391.3 mg, Oral, Daily Lantus SoloStar 100 UNIT/ML pen Inject [...] HENT: Negative. Eyes: Negative. Respiratory: Negative. Cardiovascular: Positive for palpitations. Gastrointestinal: Negative. Genitourinary: Negative. Musculoskeletal: Negative. Skin: [...] nursing note reviewed. Exam conducted with a upward bound director present. Vitals: Estimated body mass index is 40.39 kg/m?? as calculated from the following: Height as of 07/18/24: 5' 3 . Weight as of this encounter: 228 lb. BP: 136/90 Patient's last menstrual period was 02/13/2024 (approximate). ASSESSMENT & PLAN (Z34.93) Third trimester ([facility]) Plan: POCT urinalysis dipstick manually resulted, CULTURE, GROUP B STREP WITH SUSCEPTIBLITY, CULTURE, GROUP B STREP WITH SUSCEPTIBLITY (Z3A.36) 36 weeks gestation of ([facility]) Plan: Creatinine, Protein, urine, 24 hour, Pt and ptt, CBC and differential, Uric acid, Lactate dehydrogenase, ALT, AST, BUN, Creatinine, Protein, urine, 24 hour, Pt and ptt, CBC and differential, Uric acid, Lactate dehydrogenase, ALT, AST, BUN (O13.9) induced hypertension, antepartum ([facility]) Plan: Creatinine, Protein, urine, 24 hour, Pt and ptt, CBC and differential, Uric acid, Lactate dehydrogenase, ALT, AST, BUN, Creatinine, Protein, urine, 24 hour, Pt and ptt, CBC and differential, Uric acid, Lactate dehydrogenase, ALT, AST, BUN Patient presents today for a routine obstetrics appointment. Patient is currently 36w1d with a Estimated Date of Delivery: 11/19/24. Discussed with patient call from Specialist at [facility]. Patient is to deliver at [facility] due to recent cardiac workup. Patient will continue NST/BPP's locally and will delivery with [facility]. Nursing will reach out to [facility] and work on transfer with Reduction Plant Supervisor. Patient to return to clinic for 6 week post appointment.Patient did voice that she is not currently on any Beta Blockers & and not been prescribed any cardiac medication at this time. Documented by Kayla Ashley LPN on behalf of: Saravanan Ahumada DO documented in this encounter Plan of Treatment Upcoming Encounters Date Type Department Care Team (Late st Contact Info) Description 12/11/2024 8:50 AM EDT Visit [facility] [address] [address] Saravanan Ahumada DO [address] [place] [address] 07/24/2025 9:15 AM EDT Office Visit [facility] [address] [place] [address] Scheduled Orders Name Type Priority Associated Diagnoses Orde r Schedule CULTURE, GROUP B STREP WITH SUSCEPTIBLITY Lab Routine Third trimester ([facility]) Expected: 10/23/2024, Expires: 10/23/2025 Creatinine Lab Routine 36 weeks gestation of ([facility]) induced hypertension, antepartum ([facility]) Expected: 10/23/2024 (Approximate), Expires: 10/23/2025 Protein, urine, 24 hour Lab Routine 36 weeks gestation of ([facility]) induced hypertension, antepartum ([facility]) Expected: 10/23/2024 (Approximate), Expires: 10/23/2025 Pt and ptt Lab Routine 36 weeks gestation of ([facility]) induced hypertension, antepartum ([facility]) Expected: 10/23/2024, Expires: 10/23/2025 CBC and differential Lab Routine 36 weeks gestation of ([facility]) induced hypertension, antepartum ([facility]) Expected: 10/23/2024 (Approximate), Expires: 10/23/2025 Uric acid Lab Routine 36 weeks gestation of ([facility]) induced hypertension, antepartum ([facility]) Expected: 10/23/2024 (Approximate), Expires: 10/23/2025 Lactate dehydrogenase Lab Routine 36 weeks gestation of ([facility]) induced hypertension, antepartum ([facility]) Expected: 10/23/2024, Expires: 10/23/2025 ALT Lab Routine 36 weeks gestation of ([facility]) induced hypertension, antepartum ([facility]) Expected: 10/23/2024 (Approximate), Expires: 10/23/2025 AST Lab Routine 36 weeks gestation of ([facility]) induced hypertension, antepartum ([facility]) Expected: 10/23/2024 (Approximate), Expires: 10/23/2025 BUN Lab Routine 36 weeks gestation of ([facility]) induced hypertension, antepartum ([facility]) Expected: 10/23/2024, Expires: 10/23/2025 documented as of this encounter Goals Goal Patient Goal Type Associated Problems Recent Progress Patient-Stated? Author Reminders Care Plan OB Reminders No Open Scheduling, Background documented as of this encounter Procedures Procedure Name Priority Date/Time Associated Diagnosis Comments POCT URINALYSIS DIPSTICK Routine 10/23/2024 1:58 PM EDT Third trimester ([facility]) documented in this encounter Results * POCT urinalysis dipstick manually resulted (10/23/2024 1:58 PM EDT) Color, UA Yellow Clarity, UA [...] Nitrite, UA Negative Negative - Positive Urine 10/23/2024 1:58 PM EDT Saravanan Ahumada DO POINT OF CARE TEST ENTER/EDIT OR DERABLES Final Result documented in this encounter Visit Diagnoses Diagnosis Third trimester ([facility]) state, incidental 36 weeks gestation of ([facility]) induced hypertension, antepartum ([facility]) Transient hypertension of , antepartum documented in this encounter Additional Health Concerns Active Problems Noted Date Diagnosed Date OB Reminders 04/30/2024 documented as of this encounter Care Teams Blueberry Grower Relationship Specialty Start Date End Date Omer Velazquez MD [address] [place] [address] PCP - General Internal Medicine 10/05/22 documented as of this encounter
--- OUTSIDE RECORDS SUMMARY | 2024-10-26 14:22 | XMS_ITS | Encounter Summary ---
Author Organization [facility] Address [address] [place] [address] Care Team Providers Care Consulting Nurse Name Role Phone Omer Velazquez MD Primary Care Provider [phone] Encounter Details Date Type Department Care Team (Late st Contact Info) Description 05/22/2024 Abstract [facility] [address] [place] [phone] Saravanan Ahumada DO [address] [facility] [place] [address] Social History Tobacco Use Types Packs/Day Years [...] AM EDT Visit [facility] [place] [facility] [address] [place] [address] Saravanan Ahumada DO [address] [facility] [place] [address] 07/24/2025 9:15 AM EDT Office Visit [facility] Medicine [address] [place] [address] documented as of this encounter Goals Goal Patient Goal Type Associated Problems Recent Progress Patient-Stated? Author Reminders Care Plan OB Reminders No Open Scheduling, Background documented as of this encounter Visit Diagnoses Not on filedocumented in this encounter Additional Health Concerns Active Problems Noted Date Diagnosed Date OB Reminders 04/30/2024 documented as of this encounter Care Teams Consulting Nurse Relationship Specialty Start Date End Date Omer Velazquez MD [address] [place] [address] PCP - General Internal Medicine 10/05/22 documented as of this encounter
--- OUTSIDE RECORDS SUMMARY | 2024-10-26 14:22 | XMS_ITS | Encounter Summary ---
Author Organization [facility] Address [address] [place] [address] Care Team Providers Care Social Group Worker Name Role Phone Robles Goldsmith DO Unavailable [phone] Josefina Harris RN Unavailable [phone] Source Comments In the event this information is protected by the Federal Confidentiality of Alcohol and Drug AbusePatient Records regulations: The Federal rules restrict any use of the information to criminally investigate or prosecute any alcohol or drug abuse patient.[facility] Encounter Details Date Type Department Care Team (Latest Contact Info) Description 02/23/2023 Get Medical Advice Reproductive Endocrinology Infertility [address] [place] [address] Shaina Parr MD [address] [place], [place] [phone] Fax blood work order Social History Tobacco [...] filedocumented in this encounter Care Teams Social Group Worker Relationship Specialty Start Date End Date Robles Goldsmith DO [address] [facility] [address] [place] [address] Referring Obstetrics 10/13/22 [place] [address] [place] [address] Specialty Poly Packer And Heat Sealer 04/12/24 documented as of this encounter
--- OUTSIDE RECORDS SUMMARY | 2024-10-26 14:22 | XMS_ITS | Encounter Summary ---
Author Organization [facility] Address [address] [place] [address] Care Team Providers Care Financial Compliance Officer Name Role Phone Robles Goldsmith DO Unavailable [phone] Josefina Harris RN Unavailable [phone] Source Comments In the event this [...] Description 05/25/2023 Patient Msg Reproductive Endocrinology Infertility [address] [place] [address] Shaina Parr MD [address] [place], [place] [phone] Appointment Request Social History Tobacco Use Types [...] on filedocumented in this encounter Care Teams Financial Compliance Officer Relationship Specialty Start Date End Date Robles Goldsmith DO [address] [facility] [address] [place] [address] Referring Obstetrics 10/13/22 [place] [address] [place] [address] Specialty Carburetor Mechanic 04/12/24 documented as of this encounter
--- OUTSIDE RECORDS SUMMARY | 2024-10-26 14:22 | XMS_ITS | Encounter Summary ---
Author Organization [facility] Address [address] [place] [address] Care Team Providers Care Therapist'S Assistant Name Role Phone Robles Goldsmith DO Unavailable [phone] Josefina Harris RN Unavailable [phone] Source Comments In the event this information is protected by the Federal Confidentiality of Alcohol and Drug AbusePatient Records regulations: The Federal rules restrict any use of the information to criminally investigate or prosecute any alcohol or drug abuse patient.[facility] Encounter Details Date Type Department Care Team (Latest Contact Info) Description 07/15/2023 Patient Msg Reproductive Endocrinology Infertility [address] [place], [place] [phone] Provider, Ccf confidential appointment on 08/08 with [...] on filedocumented in this encounter Care Teams Therapist'S Assistant Relationship Specialty Start Date End Date Robles Goldsmith DO [address] [address] Referring Obstetrics 10/13/22 Josefina Harris, ARIC [address] [place] [address] Specialty Home Comfort Advisor 04/12/24 documented as of this encounter
--- OUTSIDE RECORDS SUMMARY | 2024-10-26 14:22 | XMS_ITS | Encounter Summary ---
Author Organization [facility] Address [address] [place] [address] Care Team Providers Care Workers' Compensation Claims Examiner Name Role Phone Omer Velazquez MD Primary Care Provider [phone] Encounter Details Date Type Department Care Team (Late st Contact Info) Description 06/07/2024 Abstract [facility] [address] [place] [address] Saravanan Ahumada DO [address] [facility] [place] [address] Social History Tobacco Use Types Packs/Day Years [...] OBGYN [address] [place] [address] Saravanan Ahumada DO [address] [facility] [place] [address] 07/24/2025 9:15 AM EDT Office Visit [facility] Internal Medicine [address] [place] [address] documented as of this encounter Goals Goal Patient Goal Type Associated Problems Recent Progress Patient-Stated? Author Reminders Care Plan OB Reminders No Open Scheduling, Background documented as of this encounter Visit Diagnoses Not on filedocumented in this encounter Additional Health Concerns Active Problems Noted Date Diagnosed Date OB Reminders 04/30/2024 documented as of this encounter Care Teams Workers' Compensation Claims Examiner Relationship Specialty Start Date End Date Omer Velazquez MD [address] [place] [address] PCP - General Internal Medicine 10/05/22 documented as of this encounter
--- OUTSIDE RECORDS SUMMARY | 2024-10-26 14:22 | XMS_ITS | Encounter Summary ---
Author Organization [facility] Address [address] [place] [address] Care Team Providers Care Counter Control Operator Name Role Phone Omer Velazquez MD Primary Care Provider [phone] Encounter Details Date Type Department Care Team (Late st Contact Info) Description 05/23/2024 Abstract [facility] [address] [place] [address] [place] [address] Kayla Ashley LPN Social History Tobacco [...] AM EDT Visit [facility] [place] [facility] [address] [facility] [place] [address] Saravanan Ahumada DO [address] [facility] [place] [address] 07/24/2025 9:15 AM EDT Office Visit [facility] [address] [place] [address] documented as of this encounter Goals Goal Patient Goal Type Associated Problems Recent Progress Patient-Stated? Author Reminders Care Plan OB Reminders No Open Scheduling, Background documented as of this encounter Visit Diagnoses Not on filedocumented in this encounter Additional Health Concerns Active Problems Noted Date Diagnosed Date OB Reminders 04/30/2024 documented as of this encounter Care Teams Counter Control Operator Relationship Specialty Start Date End Date Omer Velazquez MD [address] [place] [address] PCP - General Internal Medicine 10/05/22 documented as of this encounter
--- OUTSIDE RECORDS SUMMARY | 2024-10-26 14:22 | XMS_ITS | Encounter Summary ---
Author Organization [facility] Address [address] [place] [address] Care Team Providers Care Print Developer Name Role Phone Robles Goldsmith DO Unavailable [phone] Josefina Harris RN Unavailable [phone] Source Comments In the event this information is protected by the Federal Confidentiality of Alcohol and Drug AbusePatient Records regulations: The Federal rules restrict any use of the information to criminally investigate or prosecute any alcohol or drug abuse patient.[facility] Encounter Details Date Type Department Care Team (Late st Contact Info) Description 02/04/2023 Patient Msg Reproductive Endocrinology Infertility [address] [place] [address] Haritha Casiano APRN.ARCHITECTURE INTERN [address] [place] [address] Next steps Social History Tobacco Use Types [...] on filedocumented in this encounter Care Teams Print Developer Relationship Specialty Start Date End Date Robles Goldsmith DO [address] [facility] [address] [place] [address] Referring Obstetrics 10/13/22 [place] [address] [place] [address] Specialty Nursing Home Administrator 04/12/24 documented as of this encounter
--- OUTSIDE RECORDS SUMMARY | 2024-10-26 14:22 | XMS_ITS | Encounter Summary ---
Author Organization [facility] Address [address] [place] [address] Care Team Providers Care Power Cleaner Operator Name Role Phone Omer Velazquez MD Primary Care Provider [phone] Encounter Details Date Type Department Care Team (Late st Contact Info) Description 08/24/2024 External Result Encounter [facility] External Department Unsolicited Jaime Mccarthy, VISUAL DEVELOPER [address] [place] [address] Social History Tobacco Use Types Packs/Day Years [...] AM EDT Visit [facility] [place] [facility] [address] [place] [address] Saravanan Ahumada, DO [address] [facility] [place] [address] 07/24/2025 9:15 AM EDT Office Visit [facility] [address] [place] [address] documented as of this encounter Goals Goal [...] PM EDT Narrative 08/24/2024 6:36 PM EDT [facility] Main [address] [address] Echocardiogram Signed Patient: Lissa Rivas MR#: [id number] : 1995 Acct:[id number] Age/Sex: 29 / F ADM Date: 08/24/24 Loc: Room: Type: [facility] Attending Dr: Jaime Mccarthy RN, MSN, ANP-C [...] Procedure Note Iveth Ding MD - 08/24/2024 [facility] [place] [address] Echocardiogram Signed Patient: Lissa Rivas FMR#: [id number] : 1995Acct:[id number] Age/Sex: Date: 08/24/24 Loc: Room:Type: [facility] Attending Dr: Jaime Mccarthy RN, MSN, ANP-C [...] LV V1 max: 95.2 cm/sec TR max berince: 257.9 cm/sec LV V1 max P.6 mmHg TR max P.6 mmHg LV V1 mean: 64.2 cm/sec LV V1 mean P.88 mmHg LV V1 VTI: 19.2 cm + + + + + : Electronically: : signed by: Iveth: :: : Toña: :: : on: 08/24/2024,: : 6:35 PM: Transcribed By: HERNAN Performed At: 08/24/24 1239 Signed By: Iveth Ding MD 08/24/24 6065 us Jaime Mccarthy VISUAL DEVELOPER CV ECHO PROCEDURES Final Res ult documented in this encounter Visit Diagnoses Not on filedocumented in this encounter Additional Health Concerns Active Problems Noted Date Diagnosed Date OB Reminders 04/30/2024 documented as of this encounter Care Teams Power Cleaner Operator Relationship Specialty Start Date End Date Omer Velazquez MD [address] [place] [phone] PCP - General Internal Medicine 10/05/22 documented as of this encounter
--- OUTSIDE RECORDS SUMMARY | 2024-10-26 14:22 | XMS_ITS | Encounter Summary ---
Author Organization [facility] Address [address] [place] [address] Care Team Providers Care Propellant Assembler Name Role Phone Robles Goldsmith Benitez DO Unavailable [phone] Josefina Harris RN Unavailable [phone] Source Comments In the event this information is protected by the Federal Confidentiality of Alcohol and Drug AbusePatient Records regulations: The Federal rules restrict any use of the information to criminally investigate or prosecute any alcohol or drug abuse patient.[facility] Encounter Details Date Type Department Care Team (Late st Contact Info) Description 09/26/2024 Results Follow-Up Endocrinology [address] [place] [address] Mirta Valderrama MD [address] [place] [address] Social History Tobacco Use Types [...] is lower risk 4 12/21/2023 Data from: https://www.neighborhoodatlas.medicine.[facility].edu/. Last address used for calculation [address] [place] [address] 12/21/2023 Comments Yes Sex and Gender Information Value Date Recorded Sex Assigned at Female 01/04/2023 6:38 PM EDT Legal Sex Female 10:39 AM EDT Gender Identity Female 01/04/2023 6:38 PM EDT Sexual Orientation Not on file documented as of this encounter Plan of Treatment Not on file documented as of this encounter Visit Diagnoses Not on filedocumented in this encounter Care Teams Propellant Assembler Relationship Specialty Start Date End Date Robles Goldsmith DO [address] [facility] [address] [place] [address] Referring Obstetrics 10/13/22 [place] [address] [place] [address] Specialty Coordinate Measuring Machine Operator 04/12/24 documented as of this encounter
--- OUTSIDE RECORDS SUMMARY | 2024-10-26 14:22 | XMS_ITS | Encounter Summary ---
Author Organization [facility] Address [address] [place] [address] Care Team Providers Care Canteen Operator Name Role Phone Robles Goldsmith DO Unavailable [phone] Josefina Harris RN Unavailable [phone] Source Comments In the event this information is protected by the Federal Confidentiality of Alcohol and Drug AbusePatient Records regulations: The Federal rules restrict any use of the information to criminally investigate or prosecute any alcohol or drug abuse patient.[facility] Encounter Details Date Type Department Care Team (Late st Contact Info) Description 04/21/2023 Get Medical Advice [facility] [address] [place], [place] [id number] [place], [place] [address] [place] [address] Genetic testing results Social History [...] on filedocumented in this encounter Care Teams Canteen Operator Relationship Specialty Start Date End Date Robles Goldsmith DO [address] [phone] Referring Obstetrics 10/13/22 Josefina Harris, ARIC [address] [place] [address] Specialty Emt Intermediate 04/12/24 documented as of this encounter
--- OUTSIDE RECORDS SUMMARY | 2024-10-26 14:22 | XMS_ITS | Encounter Summary ---
Author Organization [facility] Address [address] [place] [address] Care Team Providers Care Hand Roller Name Role Phone Robles Goldsmith DO Unavailable [phone] Josefina Harris RN Unavailable [phone] Source Comments In the event this information is protected by the Federal Confidentiality of Alcohol and Drug AbusePatient Records regulations: The Federal rules restrict any use of the information to criminally investigate or prosecute any alcohol or drug abuse patient.[facility] Encounter Details Date Type Department Care Team (Late st Contact Info) Description 03/24/2024 Patient [facility] -[address] [place] [address] Cee Palafox RPh At your next appointment, choose [facility]. Social History Tobacco Use Types [...] is lower risk 4 12/21/2023 Data from: https://www.neighborhoodatlas.medicine.[facility].edu/. Last address used for calculation [address] [place] [address] 12/21/2023 Comments Yes Sex and Gender Information Value Date Recorded Sex Assigned at Female 01/04/2023 6:38 PM EDT Legal Sex Female 10:39 AM EDT Gender Identity Female 01/04/2023 6:38 PM EDT Sexual Orientation Not on file documented as of this encounter Plan of Treatment Not on file documented as of this encounter Visit Diagnoses Not on filedocumented in this encounter Care Teams Hand Roller Relationship Specialty Start Date End Date Robles Goldsmith DO [address] [facility] [address] [place] [address] Referring Obstetrics 10/13/22 [place] [address] [place] [address] Specialty Industrial Security Analyst 04/12/24 documented as of this encounter
--- OUTSIDE RECORDS SUMMARY | 2024-10-26 14:22 | XMS_ITS | Encounter Summary ---
Author Organization [facility] Address [address] [place] [address] Care Team Providers Care Clamp Forklift Operator Name Role Phone Robles Goldsmith DO Unavailable [phone] Josefina Harris RN Unavailable [phone] Source Comments In the event this information is protected by the Federal Confidentiality of Alcohol and Drug AbusePatient Records regulations: The Federal rules restrict any use of the information to criminally investigate or prosecute any alcohol or drug abuse patient.[facility] Encounter Details Date Type Department Care Team (Late st Contact Info) Description 03/23/2023 Patient Msg [address] [address] Provider, Ccf Appointment Reschedule Social History Tobacco [...] on filedocumented in this encounter Care Teams Clamp Forklift Operator Relationship Specialty Start Date End Date Robles Goldsmith DO [address] [facility] [address] [place] [address] Referring Obstetrics 10/13/22 Josefina Harris, ARIC [address] [place] [address] Specialty Operator Coating Furnace 04/12/24 documented as of this encounter
--- OUTSIDE RECORDS SUMMARY | 2024-10-26 14:22 | XMS_ITS | Encounter Summary ---
Author Organization [facility] Address [address] [place] [address] Care Team Providers Care Semiconductor Processing Technician Name Role Phone Robles Goldsmith DO Unavailable [phone] Josefina Harris RN Unavailable [phone] Source Comments In the event this information is protected by the Federal Confidentiality of Alcohol and Drug AbusePatient Records regulations: The Federal rules restrict any use of the information to criminally investigate or prosecute any alcohol or drug abuse patient.[facility] Encounter Details Date Type Department Care Team (Latest Contact Info) Description 01/13/2024 Patient Msg Reproductive Endocrinology Infertility [address] [place] [address] Shaina Parr MD [address] [place] [address] Appointment Request Social History Tobacco [...] is lower risk 4 12/21/2023 Data from: https://www.neighborhoodatlas.[facility]/. Last address used for calculation [address] 12/21/2023 Comments No Sex [...] on filedocumented in this encounter Care Teams Semiconductor Processing Technician Relationship Specialty Start Date End Date Robles Goldsmith DO [address] [place] [address] Referring Obstetrics 10/13/22 [place] [address] [address] [place], [place] [phone] Specialty Hard Tile Setter 04/12/24 documented as of this encounter
--- OUTSIDE RECORDS SUMMARY | 2024-10-26 14:22 | XMS_ITS | Encounter Summary ---
Author Organization [facility] Address [address] [place] [address] Care Team Providers Care Tile Mechanic Name Role Phone Robles Goldsmith DO Unavailable [phone] Josefina Harris RN Unavailable [phone] Source Comments In the event this information is protected by the Federal Confidentiality of Alcohol and Drug AbusePatient Records regulations: The Federal rules restrict any use of the information to criminally investigate or prosecute any alcohol or drug abuse patient.[facility] Encounter Details Date Type Department Care Team (Late st Contact Info) Description 2024 Patient Msg Reproductive Endocrinology Infertility [address] [place], [place] [phone] Haritha Casiano APRN.DRIVING INSTRUCTOR [address] [place] [address] Congratulations!!! Social History Tobacco Use Types Packs/Day [...] is lower risk 4 12/21/2023 Data from: https://www.neighborhoodatlas.[facility].edu/. Last address used for calculation [address] 12/21/2023 Comments Yes Sex and [...] on filedocumented in this encounter Care Teams Tile Mechanic Relationship Specialty Start Date End Date Robles Goldsmith DO [address] [place] [address] Referring Obstetrics 10/13/22 [place] [address] [address] [place], [place] [phone] Specialty Client Solutions Manager 04/12/24 documented as of this encounter
--- OUTSIDE RECORDS SUMMARY | 2024-10-26 14:22 | XMS_ITS | Encounter Summary ---
Author Organization [facility] Address [address] [place] [id number] Care Team Providers Care Director Sales Support Name Role Phone Robles Goldsmith DO Unavailable [phone] Josefina Harris RN Unavailable [phone] Source Comments In the event this information is protected by the Federal Confidentiality of Alcohol and Drug AbusePatient Records regulations: The Federal rules restrict any use of the information to criminally investigate or prosecute any alcohol or drug abuse patient.[facility] Encounter Details Date Type Department Care Team (Late st Contact Info) Description 06/18/2023 Patient [facility] [address] [place] [address] Fina Davalos, [address] [address] Appointment scheduling Social History Tobacco [...] filedocumented in this encounter Care Teams Director Sales Support Relationship Specialty Start Date End Date Robles Goldsmith DO [address] [facility] [address] [place] [address] Referring Obstetrics 10/13/22 [place] [address] [place] [address] Specialty Station Cook 04/12/24 documented as of this encounter
--- OUTSIDE RECORDS SUMMARY | 2024-10-26 14:22 | XMS_ITS | Encounter Summary ---
Author Organization [facility] Address [address] [place] [address] Care Team Providers Care Family Service Assistant Name Role Phone Omer Velazquez MD Primary Care Provider [phone] Encounter Details Date Type Department Care Team (Late st Contact Info) Description 05/23/2024 Abstract [facility] [address] [place] [address] [place] [address] Kayla Ashley LPN [...] EDT Visit [facility] [place] [facility] [address] [facility] [address] [place] [address] Saravanan Ahumada DO [address] [facility] [place] [address] 07/24/2025 9:15 AM EDT Office Visit [facility] [address] [place] [address] documented as of this encounter Goals Goal Patient Goal Type Associated Problems Recent Progress Patient-Stated? Author Reminders Care Plan OB Reminders No Open Scheduling, Background documented as of this encounter Visit Diagnoses Not on filedocumented in this encounter Additional Health Concerns Active Problems Noted Date Diagnosed Date OB Reminders 04/30/2024 documented as of this encounter Care Teams Family Service Assistant Relationship Specialty Start Date End Date Omer Velazquez MD [address] [place] [address] PCP - General Internal Medicine 10/05/22 documented as of this encounter
--- OUTSIDE RECORDS SUMMARY | 2024-10-26 14:22 | XMS_ITS | Encounter Summary ---
Author Organization [facility] Address [address] [place] [address] Care Team Providers Care Auto Garage Attendant Name Role Phone Omer Velazquez MD Primary Care Provider [phone] Encounter Details Date Type Department Care Team (Late st Contact Info) Description 05/19/2024 Telephone [facility] [address] [place] [address] Gaye Hollis LPN [address] [employer] [place] [phone] Social History Tobacco Use Types Packs/Day Years [...] 8:50 AM EDT Visit NOMTimothy LAFLEUR [address] [place] [address] Saravanan Ahumada DO [address] [facility] [place] [address] 07/24/2025 9:15 AM EDT Office Visit [facility] [address] [place] [address] Scheduled Orders Name Type Priority Associated Diagnoses [...] documented as of this encounter Care Teams Auto Garage Attendant Relationship Specialty Start Date End Date Omer Velazquez MD [address] [place] [address] PCP - General Internal Medicine 10/05/22 documented as of this encounter
--- OUTSIDE RECORDS SUMMARY | 2024-10-26 14:22 | XMS_ITS | Encounter Summary ---
Author Organization [facility] Address [address] [place] [address] Care Team Providers Care Safety Glass Installer Name Role Phone Robles Goldsmith DO Unavailable [phone] Josefina Harris RN Unavailable [phone] Source Comments In the event this information is protected by the Federal Confidentiality of Alcohol and Drug AbusePatient Records regulations: The Federal rules restrict any use of the information to criminally investigate or prosecute any alcohol or drug abuse patient.[facility] Encounter Details Date Type Department Care Team (Late st Contact Info) Description 11/22/2023 Patient Msg Reproductive Endocrinology Infertility [address] [place], [place] [phone] Provider, Ccf plan for 11/22/23 Social History [...] on filedocumented in this encounter Care Teams Safety Glass Installer Relationship Specialty Start Date End Date Robles Goldsmith DO [address] [facility] [address] [place] [address] Referring Obstetrics 10/13/22 [place] [address] [place] [address] Specialty Charge Master Analyst 04/12/24 documented as of this encounter
--- OUTSIDE RECORDS SUMMARY | 2024-10-26 14:22 | XMS_ITS | Encounter Summary ---
Author Organization [facility] Address [address] [place] [address] Care Team Providers Care Ton Cylinder Inspector Name Role Phone Robles Goldsmith DO Unavailable [phone] Josefnia Harris RN Unavailable [phone] Source Comments In the event this information is protected by the Federal Confidentiality of Alcohol and Drug AbusePatient Records regulations: The Federal rules restrict any use of the information to criminally investigate or prosecute any alcohol or drug abuse patient.[facility] Encounter Details Date Type Department Care Team (Late st Contact Info) Description 07/21/2023 Get Medical Advice [facility] [address] [place], [place] [phone] [place], [place] [address] [place] [address] referral for genetics testing Social [...] on filedocumented in this encounter Care Teams Ton Cylinder Inspector Relationship Specialty Start Date End Date Robles Goldsmith DO [address] [address] Referring Obstetrics 10/13/22 [place] [address] [place] [address] Specialty Heel Seat Trimmer 04/12/24 documented as of this encounter
--- OUTSIDE RECORDS SUMMARY | 2024-10-26 14:22 | XMS_ITS | Encounter Summary ---
Author Organization [facility] Address [address] [place] [address] Care Team Providers Care Logistics And Planning Manager Name Role Phone Omer Velazquez MD Primary Care Provider [phone] Encounter Details Date Type Department Care Team (Late st Contact Info) Description 06/19/2024 Abstract [facility] [address] [facility] [address] Saravanan Ahumada DO [address] [facility] [place] [address] Social History Tobacco Use Types Packs/Day Years [...] AM EDT Visit [facility] [place] [address] [address] Saravanan Ahumada DO [address] [facility] [place] [address] 07/24/2025 9:15 AM EDT Office Visit [facility] Internal Medicine [address] [place] [address] documented as of this encounter Goals Goal Patient Goal Type Associated Problems Recent Progress Patient-Stated? Author Reminders Care Plan OB Reminders No Open Scheduling, Background documented as of this encounter Visit Diagnoses Not on filedocumented in this encounter Additional Health Concerns Active Problems Noted Date Diagnosed Date OB Reminders 04/30/2024 documented as of this encounter Care Teams Logistics And Planning Manager Relationship Specialty Start Date End Date Omer Velazquez MD [address] [place] [address] PCP - General Internal Medicine 10/05/22 documented as of this encounter
--- OUTSIDE RECORDS SUMMARY | 2024-10-26 14:22 | XMS_ITS | Clinical Summary ---
Author Organization [facility] Address [address] [place] [address] Care Team Providers Care Napping Machine Operator Name Role Phone Robles Goldsmith Benitez DO Unavailable Josefina Harris RN Unavailable [phone] Allergies No known active allergies Medications [...] Team Description 09/26/2024 Results Follow-Up Endocrinology [address] [id number] Mirta Valderrama MD 09/11/2024 9:00 AM EDT [facility] Endocrinology [address] [place], [place] [phone] Mirta Valderrama MD Monoallelic mutation of SDHA gene (Primary Dx); Gestational diabetes mellitus (GDM) in third trimester, gestational diabetes method of control unspecified (HCC) 09/11/2024 Travel 09/05/2024 1:45 PM EDT Office Visit Otol[facility]ology [address] [place] [address] Franklin Laboy MD Monoallelic mutation of SDHA [...] lower risk 4 12/21/2023 Data from: https://www.neighborhoodatlas.medicine.[facility].edu/. Last address used for calculation [address] 12/21/2023 Comments Yes Sex and [...] - 67 pg/mL 09/19/2024 2:41 PM EDT [facility] Comment: Reference Ranges: Hypertensive adult > or = 18 yrs old: 12-72 pg/mL Normotensive adult > or = 18 yrs old: 12-67 pg/mL Normotensive children < 18 yrs old: 10-95 pg/mL Normetanephrine, Plasma 56 18 - 101 pg/mL 09/19/2024 2:41 PM EDT [facility] Comment: Reference Ranges: Hypertensive [...] PM EDT 09/04/2024 12:19 PM EDT Narrative [facility] - 09/19/2024 2:41 PM EDT Plasma Free Metanephrine test performed by Liquid Chromatography Tandem Mass Spectrometry (LC/MS/MS). Results obtained with different methods or kits cannot be used interchangeably. This test was developed, and its performance characteristics determined by the [facility] Department of Pathology and Laboratory Medicine. It has not been cleared or approved by the FDA. The [facility] Department of Pathology and Laboratory Medicine is regulated under CLIA as qualified to perform high- complexity testing. This test is used for clinical purposes. It should not be regarded as investigational or for research. us Mirta Valderrama MD LABORATORY Final Result [facility] [address] [place] [address], * HIV 1/2 COMBO WITH REFLEX TO DIFFERENTIATION (09/13/2023 8:52 AM EDT) HIV 12 Combo (Ag/Ab) Nonreactive Nonreactive 09/13/2023 9:15 PM EDT [facility] HIV-1/2 AB (Confirmatory) 09/13/2023 9:15 PM EDT [facility] Comment:Test not indicated. HIV Interpretation 09/13/2023 9:15 PM EDT [facility] Comment: No evidence of HIV-1 or HIV-2 infection. Should recent infection be suspected, repeat testing may be considered 2-3 weeks after this draw. [place] Rev. Code 3701.243(E): This information has been [...] EDT 09/13/2023 8:52 AM EDT Haritha Casiano APRN.HEAD OF DIGITAL ADVERTISING & INTEGRATION LABORATORY Final R esult [facility] [address] * HEPATITIS C ANTIBODY IA WITH CONFIRMATION (09/13/2023 8:52 AM EDT) [facility] [place] Hep C Antibody IA Negative Negative 09/13/2023 9:06 PM EDT [facility] Comment:The result suggests no evidence of active infection with Hepatitis C virus. Should recent infection be suspected, repeat testing may be considered 4-6 weeks after this draw. Blood BLOOD SPECIMEN / Unknown Venipuncture / Unknown 09/13/2023 8:52 AM EDT 09/13/2023 8:52 AM EDT Haritha Casiano APRN.[facility] LABORATORY Final R esult Performing Organization Address City/[facility] [place]/ZIP Co de Phone Number [facility] [address] [place] [address], from Last 3 Months or Most Recently Relevant to Health Maintenance Insurance [address] [place] [address] [employer] [facility] Care Teams Napping Machine Operator Relationship Specialty Start Date End Date Robles Goldsmith DO [address] [facility] [address] [place] [address] Referring Obstetrics 10/13/22 [place] [address] [place] [address] Specialty Engine Lathe Set Up Operator Tool 04/12/24
--- OUTSIDE RECORDS SUMMARY | 2024-10-26 14:22 | XMS_ITS | Encounter Summary ---
Author Organization [facility] Address [address] [place] [address] Care Team Providers Care Angledozer Operator Name Role Phone Omer Velazquez MD Primary Care Provider [phone] Encounter Details Date Type Department Care Team (Late st Contact Info) Description 06/19/2024 Abstract [facility] [address] [facility] [phone] Saravanan Ahumada DO [address] [facility] [place] [address] Social History Tobacco Use Types Packs/Day Years [...] AM EDT Visit [facility] [place] [facility] [address] [facility] [address] Saravanan Ahumada DO [address] [facility] [place] [address] 07/24/2025 9:15 AM EDT Office Visit [facility]NA Hassan Internal Medicine [address] [place] [address] documented as of this encounter Goals Goal Patient Goal Type Associated Problems Recent Progress Patient-Stated? Author Reminders Care Plan OB Reminders No Open Scheduling, Background documented as of this encounter Visit Diagnoses Not on filedocumented in this encounter Additional Health Concerns Active Problems Noted Date Diagnosed Date OB Reminders 04/30/2024 documented as of this encounter Care Teams Angledozer Operator Relationship Specialty Start Date End Date Omer Velzaquez MD [address] [place] [address] PCP - General Internal Medicine 10/05/22 documented as of this encounter
--- OUTSIDE RECORDS SUMMARY | 2024-10-26 14:22 | XMS_ITS | Encounter Summary ---
Author Organization [facility] Address [address] [place] [address] Care Team Providers Care Teacher Specialist Name Role Phone Robles Goldsmith DO Unavailable [phone] Josefina Harris RN Unavailable [phone] Source Comments In the event this information is protected by the Federal Confidentiality of Alcohol and Drug AbusePatient Records regulations: The Federal rules restrict any use of the information to criminally investigate or prosecute any alcohol or drug abuse patient.[facility] Encounter Details Date Type Department Care Team (Latest Contact Info) Description 11/19/2023 Patient Msg Reproductive Endocrinology Infertility [address] [place] [address] Shaina Parr MD [address] [place], [place] [phone] Appointment Request Social History Tobacco Use Types [...] on filedocumented in this encounter Care Teams Teacher Specialist Relationship Specialty Start Date End Date Robles Goldsmith DO [address] [facility] [address] [place] [address] Referring Obstetrics 10/13/22 [place] [address] [place] [address] Specialty Ed Transporter 04/12/24 documented as of this encounter
--- OUTSIDE RECORDS SUMMARY | 2024-10-26 14:23 | XMS_ITS | Encounter Summary ---
Author Organization [facility] Address [address] [place] [address] Care Team Providers Care Clinical Social Worker Name Role Phone Omer Velazquez MD Primary Care Provider [phone] Encounter Details Date Type Department Care Team (Late st Contact Info) Description 10/11/2024 Abstract [facility] [address] [place] [id number] Saravanan Ahumada DO [address] [place] [address] Social History Tobacco Use Types Packs/Day Years [...] AM EDT Visit [facility] [place] [facility] [address] [place] [phone] Saravanan Ahumada DO [address] [place] [address] 07/24/2025 9:15 AM EDT Office Visit [facility] [address] [place] [phone] documented as of this encounter Goals Goal Patient Goal Type Associated Problems Recent Progress Patient-Stated? Author Reminders Care Plan OB Reminders No Open Scheduling, Background documented as of this encounter Visit Diagnoses Not on filedocumented in this encounter Additional Health Concerns Active Problems Noted Date Diagnosed Date OB Reminders 04/30/2024 documented as of this encounter Care Teams Clinical Social Worker Relationship Specialty Start Date End Date Omer Velazquez MD [address] [place] [address] PCP - General Internal Medicine 10/05/22 documented as of this encounter
--- OUTSIDE RECORDS SUMMARY | 2024-10-26 14:23 | XMS_ITS | Encounter Summary ---
Author Organization [facility] Address [address] [place] [address] Care Team Providers Care Drafting Instructor Name Role Phone Robles Goldsmith Benitez DO Unavailable [phone] Josefina Harris RN Unavailable [phone] Source Comments In the event this information is protected by the Federal Confidentiality of Alcohol and Drug AbusePatient Records regulations: The Federal rules restrict any use of the information to criminally investigate or prosecute any alcohol or drug abuse patient.[facility] Encounter Details Date Type Department Care Team (Late st Contact Info) Description 09/02/2023 Get Medical Advice Endocrinology [address] [place] [address] Mirta Valderrama MD [address] [place] [address] Follow up questions Social History [...] ovaries documented in this encounter Care Teams Drafting Instructor Relationship Specialty Start Date End Date Robles Goldsmith DO [address] [phone] Referring Obstetrics 10/13/22 [place] [address] [place] [address] Specialty Carpenter Ship 04/12/24 documented as of this encounter
--- OUTSIDE RECORDS SUMMARY | 2024-10-26 14:23 | XMS_ITS | Encounter Summary ---
Author Organization [facility] Address [address] [place] [address] Care Team Providers Care Performance Manager Name Role Phone Omer Velazquez MD Primary Care Provider [phone] Encounter Details Date Type Department Care Team (Late st Contact Info) Description 07/20/2023 Orders Only [facility] [address] [place] [phone] A, Unknown Practice [address] [place], [place] [phone] Social History Tobacco Use Types Packs/Day Years [...] AM EDT Visit [facility] [place] [facility] [address] [place] [phone] Saravanan Ahumada, [address] [place] [address] 07/24/2025 9:15 AM EDT Office Visit [facility] [address] [place] [phone] documented as of this encounter Procedures Procedure Name Priority Date/Time Associated Diagnosis Comments SCANNED LABS Routine 07/20/2023 2:45 PM EDT documented in this encounter Results * SCANNED LABS (07/20/2023 2:45 PM EDT) us Unknown Practice A LAB CHG PERFORMABLES Final Re sult documented in this encounter Visit Diagnoses Not on filedocumented in this encounter Care Teams Performance Manager Relationship Specialty Start Date End Date Omer Velazquez MD [address] [place] [address] PCP - General Internal Medicine 10/05/22 documented as of this encounter
--- OUTSIDE RECORDS SUMMARY | 2024-10-26 14:23 | XMS_ITS | Encounter Summary ---
Author Organization [email or web address] Address [id number] [address] [place] [address] Care Team Providers Care Hotel Server Name Role Phone Unavailable Primary Care [...]
--- OUTSIDE RECORDS SUMMARY | 2024-10-26 14:23 | XMS_ITS | Clinical Summary ---
Author Organization [facility] Address [address] [place] [address] Phone Care Team Providers Care Director Of Rooms Name Role Phone Omer Velazquez MD Primary [...] Department Care Team Description 10/18/2024 Scanned Document [facility] [address] [place] [phone] Scanning, Generic Provider from Last 3 Months [...] Comments HIV Screening 1995 Lipid Panel 1995 COVID-19 Vaccine (#1) 2000 Hepatitis C Screening [...] al Result from Last 3 Months Insurance [facility] Care Teams Director Of Rooms Relationship Specialty Start Date End Date Omer Velazquez MD [address] [place] [address] PCP - General Internal Medicine 02/14/24
--- OUTSIDE RECORDS SUMMARY | 2024-10-26 14:23 | XMS_ITS | Encounter Summary ---
Author Organization [facility] Address [address] [place] [address] Care Team Providers Care Senior Product Manager Name Role Phone Omer Velazquez MD Primary Care Provider [phone] Encounter Details Date Type Department Care Team (Late st Contact Info) Description 06/27/2024 Orders Only [facility] [address] [place] [address] [place] [address] [place] [address] Social History Tobacco Use Types Packs/Day Years [...] AM EDT Visit [facility] [place] [facility] [address] [place] [place] [address] Saravaann Ahumada DO [address] [facility] [address] [place] [address] 07/24/2025 9:15 AM EDT Office Visit [facility] [address] [facility] [address] [place] [phone] documented as of this encounter Goals Goal [...] as of this encounter Care Teams Senior Product Manager Relationship Specialty Start Date End Date Omer Velazquez MD [address] [place] [address] PCP - General Internal Medicine 10/05/22 documented as of this encounter
--- OUTSIDE RECORDS SUMMARY | 2024-10-26 14:23 | XMS_ITS | Clinical Summary ---
Author Organization [facility] Address [address] [place] [address] Care Team Providers Care Operating Room Rn Name Role Phone Lito Guerrero MD Primary Care Provider [phone] Allergies No known active allergies Medications cholecalciferol (Vitamin D-3) 50 MCG (1999) tablet Take 2 tablets by mouth in the morning. Active MV-Min-Fe Fum-FA-DHA ( 1 PO) Take by mouth Active ammonium lactate (Amlactin) 12 % creamIndications:Xe rosis cutis,Fissure in skin of both feet Apply topically Daily 140 g 3 5 026 Active albuterol HFA (Ventolin HFA) 90 mcg/act inhalerIndications: Seasonal allergies Inhale 2 puffs every 6 (six) hours if needed for wheezing 18 g 5 5 026 Active Alcohol Swabs (Alcohol Prep Pad) [...] total of 4times daily. 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 Prime with 2 units. 5 Active acyclovir (Zovirax) 400 MG tabletIndications:H erpes simplex Take 1 tablet (400 mg) by mouth in the morning and 1 tablet (400 mg) before bedtime. 60 tablet 11 5 025 Active iron polysaccharides (ProFe) 391.3 (180 Fe) MG capsuleIndications: Anemia, unspecified type Take 1 capsule (391.3 mg) by mouth Daily 30 capsule 6 5 025 Active Active Problems Problem Noted Date Diagnosed [...] Date Type Department Care Team Description 10/24/2024 Clinisync Result Encounter [facility] External Department Unsolicited Negar Ahumada DO 10/24/2024 Clinisync Result Encounter [facility]OM[facility] External Department Unsolicited Provider, Generic External Data 10/24/2024 Telephone [facility] [address] [place] [address] Kayla Ashley LPN 10/23/2024 1:30 PM EDT Routine [facility] [address] [place] [address] Negar Ahumada, Third trimester ([facility]); 36 weeks gestation of ([facility]); induced hypertension, antepartum ([facility]) 10/23/2024 [place] [address] Negar Ahumada, DO 10/17/2024 Clinisync Result Encounter NOMS External Department Unsolicited Negar Ahumada, DO 10/16/2024 9:00 AM EDT Routine [facility] [place] [address] Negar Ahumada, induced hypertension, antepartum ([facility]) (Primary Dx); Third trimester ([facility]); 35 weeks gestation of ([facility]) 10/16/2024 [place] [address] Sapphire Huntersol [place] 10/16/2024 Clinisync Result Encounter NOMS External Department Unsolicited Provider, Generic External Data 10/16/2024 Bamboo flowsheet [facility] [address] [place] [address] Negar Ahumada, DO 10/12/2024 Abstract [facility] [address] [place] [address] Negar Ahumada, DO 10/11/2024 Clinisync Result Encounter NOMS External Department Unsolicited Negar Ahumada, DO 10/11/2024 [place] [address] Negar Ahumada, DO 10/09/2024 9:00 AM [place] [address] Negar Ahumada, Third trimester ([facility]); 34 weeks gestation of ([facility]); Herpes simplex virus type 1 (HSV-1) dermatitis; Insulin controlled gestational diabetes mellitus (GDM) during , antepartum ([facility]) 10/09/2024 [place] [address] Negar Ahumada, 10/04/2024 Clinisync Result Encounter NOMS External Department Unsolicited Provider, Generic External Data 10/02/2024 11:00 AM [place] [address] Negar Ahumada DO Herpes simplex (Primary Dx); 33 weeks gestation of ([facility]); Encounter for routine care ([facility]); Third trimester ([facility]) 10/02/2024 10:30 AM EDT [place] [address] History of gestational diabetes 09/27/2024 Clinisync Result Encounter NOMS External Department Unsolicited Provider, Generic External Data 09/25/2024 1:00 PM [place] [address] Negar Ahumada, Third trimester ([facility]); Insulin controlled gestational diabetes mellitus (GDM) during , antepartum ([facility]); 32 weeks gestation of ([facility]) 09/25/2024 [place] [address] Negar Ahumada, 09/25/2024 [place] [address] Negar Ahumada, 09/20/2024 Telephone [facility] [address] [place] [address] Jarrod Royal, [place] 09/14/2024 Clinisync Result Encounter NOMS External Department Unsolicited Provider, Generic External Data 09/13/2024 11:30 AM EDT Routine [facility] [address] [place] [address] Negar Ahumada, History of gestational diabetes (Primary Dx); Third trimester ([facility]); 31 weeks gestation of ([facility]) 09/13/2024 Bamboo flowsheet [facility] [address] [place] [address] Negar Ahumada, 09/12/2024 Clinisync Result Encounter NOMS External Department Unsolicited Negar Ahumada, 09/12/2024 [place] [address] Gaye Hollis LPN 09/06/2024 1:30 PM EDT Ancillary Procedure [facility] [address] [place] [address] Gestational diabetes mellitus (GDM), antepartum, gestational diabetes method of control unspecified ([facility]) 08/30/2024 11:20 AM [place] [address] Negar Ahumada, 28 weeks gestation of ([facility]); Third trimester ([facility]); Gestational diabetes mellitus (GDM), antepartum, gestational diabetes method of control unspecified ([facility]); Herpes simplex virus type 1 (HSV-1) dermatitis 08/30/2024 Bamboo flowsheet [facility] [address] [place] [address] Negar Ahumada, 08/25/2024 [place] [address] Symone Hunter MA 08/24/2024 External Result Encounter NOMS External Department Unsolicited Jaime Mccarthy NP 08/23/2024 Clinisync Result Encounter NOMS External Department Unsolicited Provider, Generic External Data 08/23/2024 Travel 08/16/2024 8:30 AM EDT Routine [facility] [address] [place] [address] Rupal Patel PA Second trimester ([facility]); 26 weeks gestation of ([facility]) 08/16/2024 Bamboo flowsheet [facility] [address] [facility] [place] [address] Rupal Patel PA 08/14/2024 Telephone [facility] [address] [place] [address] Lito Guerrero MD Med Refill 08/09/2024 Travel 08/07/2024 Clinisync Result Encounter NOMS External Department Unsolicited Provider, Generic External Data from Last 3 Months Immunizations Immunization Administration Dates Next Due DTP 1995,1995 DTaP, Unspecified 08/10/2000,08/04/1996,03/17/19 96 HPV 9-Valent 08/12/2015,04/10/2015,12/05/2014 Hep B, Adolescent or Pediatric 03/17/1996,1995,1995 HiB, unspecified 08/04/1996, 6,1995,06/07 IPV 08/10/2000 Influenza, seasonal, injecta ble, preservative free 01/30/2015 MMR 05/04/2023,08/10/2000,04/21/1996 Meningococcal MCV4P 08/12/2006 Novel [id number], preservative-free 02/13/2009 OPV 03/17/1996,1995,1995 Tdap 06/26/2022 Varicella [...] fibrillation Sister Relation Name Status Comments Father Frankiln Alive Maternal Grandmother Mother Estee Alive Mother's [...] Visit [facility] [place] [facility] [address] [place] [address] Negar Ahumada, DO [address] [place] [address] 07/24/2025 9:15 AM EDT Office Visit [facility] [address] [place] [address] Health Maintenance Due Date Last Done Comments Influenza Vaccine (#1) 2024 01/30/2015 Goals Goal Patient Goal Type Associated Problems Recent Progress Patient-Stated? Author Reminders Care Plan OB Reminders No Open Scheduling, Background Procedures Procedure Name Priority Date/Time Associated Diagnosis Comments US OB BPP W NON-STRESS 10/24/2024 10:02 PM EDT [facility] APTT Routine 10/24/2024 4:47 PM EDT SRMCO[facility] PROTHROMBIN TIME INR W/O COUM Routine 10/24/2024 4:47 PM EDT ALL LDH Routine 10/24/2024 4:47 PM EDT CCF ALT Routine 10/24/2024 4:47 PM EDT CCF AST Routine 10/24/2024 4:47 PM EDT ALL URIC ACID Routine 10/24/2024 4:47 PM EDT TBH CREATININE Routine 10/24/2024 4:47 PM EDT ALL BUN Routine 10/24/2024 4:47 PM EDT ALL CBC WITH AUTO DIFF Routine 4:47 PM EDT POCT URINALYSIS DIPSTICK Routine 10/23/2024 1:58 PM EDT Third trimester ([facility]) US OB BPP W NON-STRESS 10/17/2024 4:59 [...] Routine 10/16/2024 9:12 AM EDT Third trimester ([facility]) US OB BPP W NON-STRESS 10/11/2024 8:42 AM EDT POCT URINALYSIS DIPSTICK Routine 10/09/2024 9:27 AM EDT Third trimester ([facility]) US OB BPP W NON-STRESS 10/04/2024 7:13 AM EDT POCT URINALYSIS DIPSTICK Routine 10/02/2024 11:23 AM EDT 33 weeks gestation of ([facility]) Encounter for routine care ([facility]) Third trimester ([facility]) US OB FOLLOW UP TRANSABDOMINAL APPROACH Routine 10/02/2024 11:00 AM EDT History of gestational diabetes US OB BPP W NON-STRESS 09/27/2024 5:08 PM EDT POCT URINALYSIS DIPSTICK Routine 09/25/2024 1:34 PM EDT Third trimester ([facility]) TBH TOTAL PROTEIN 24 HOUR URINE Routine 09/14/2024 9:30 AM EDT POCT URINALYSIS DIPSTICK Routine 09/13/2024 11:56 AM EDT Third trimester ([facility]) MHPT FIBRINOGEN Routine 09/12/2024 5:24 PM EDT [...] Routine 5:24 PM EDT TBH UA (CLEAN/CATCH) INDIGO VAT TENDER CLOTH/MICRO IF IND. Routine 09/12/2024 4:30 PM EDT [...] Routine 08/16/2024 8:45 AM EDT Second trimester ([facility]) US OB INCOMPLETE ANATOMY 08/07/2024 9:48 AM EDT from Last 3 Months Results * US OB BPP W NON-STRESS (10/24/2024 10:02 PM EDT) Only the most recent of5 resultswithin the time period is included. Anatomical Region Laterality Modality Other 10/24/2024 10:0 2 PM EDT Narrative 10/24/2024 10:05 [place] [address] Ultrasound Report Signed Patient: LISSA ROJAS MR#: [id number] : 1995 Acct:[id number] Age/Sex: 29 / F ADM Date: 10/24/24 Loc: US Attending Dr: Negar Ahumada D.O. Ordering Physician: Negar Ahumada D.O. Date of Service: 10/24/24 Procedure(s): US OB BPP w non-stress Accession Number(s): [id number] cc: Negar Ahumada D.O.; LITO GUERRERO [address] [address] Patient Name: LISSA ROJAS MRN: TBH:[id number] date: 1995 Sex: F Assigned Patient Location: [facility] Current Patient Location: Accession/Order Number: [id number] Exam Date: 10/24/2024 22:00 Report Date: 10/24/2024 22:02 At the request of: NEGAR AHUMADA DO Procedure: US OB BPP w non-stress Ultrasound biophysical profile HISTORY: Gestational diabetes Comparison 10/17/2024 Findings: Adequate breathing movement, gross body movement, tone and amniotic fluid volume for total score of 8 out of 8. The amniotic fluid index is 16.6cm within normal limits. The heart rate 145 bpm. US/US OB BPP w non-stress IMPRESSION: 8 out of 8 biophysical profile score Impression dictated by: Jose Levine M.D. 10/24/2024 10:02 PM Dictation Location: [place] [address] Electronically authenticated by: [id number] Y Date: 10/24/2024 22:02 Dictated By: Jose Levine M.D. Signed By: 10/24/242204 DD/ 01 TD/TT: Sample Sewer: Procedure Note Radiology, Radiologist, MD - 10/24/2024 [place] [address] Ultrasound Report Signed Patient: LISSA ROJAS R#: [id number] : 1995Acct:[id number] Age/Sex: Date: 10/24/24 Loc: US Attending Dr: Negar Ahumada D.O. Ordering Physician: Negar Ahumada D.O. Date of Service: 10/24/24 Procedure(s): US OB BPP w non-stress Accession Number(s): [id number] cc: Negar Ahumada D.O.; LITO GUERRERO [place] [address] Patient Name: LISSA ROJAS MRN: [facility]:[id number] date: 1995 Sex: F Assigned Patient Location: [facility] Current Patient Location: Accession/Order Number: [id number] Exam Date: 10/24/2024 22:00 Report Date: 10/24/2024 22:02 At the request of: NEGAR AHUMADA DO Procedure: US OB BPP w non-stress Ultrasound biophysical profile HISTORY: Gestational diabetes Comparison 10/17/2024 Findings: Adequate breathing movement, gross body movement, tone and amniotic fluid volume for total score of 8 out of 8. The amniotic fluidindex is 16.6cm within normal limits. The heart rate 145 bpm. US/US OB BPP w non-stress IMPRESSION: 8 out of 8 biophysical profile score Impression dictated by: Jose Levine M.D. 10/24/2024 10:02 PM Dictation Location: [place] [address] Electronically authenticated by: [id number] Y Date: 2:02 Dictated By: Jose Levine M.D. Signed By:10/24/242204 DD/ 01 TD/TT: Sample Sewer: Negar Ahumada DO [facility] Final Result * (ABNORMAL) TBH CREATININE (10/24/2024 4:47 PM EDT) Only the most recent of3 resultswithin the time period is included. CREATININE 0.52(L) 0.55 - 1.02 mg/dL TBH TBH EGFR-AF BURKINAN >60 >=60 mL/min/1.7 3m 2 TBH TBH EGFR-NON AF BURKINAN >60 >=60 mL/min/1.7 3m 2 TBH 10/24/2024 4:47 PM EDT 10/24/2024 4:53 PM EDT Narrative CLINISYNC - 10/24/2024 5:11 PM EDT Generic External Data Provider LORNEISYNC F inal Result [facility] * [facility] PROTHROMBIN TIME INR W/O COUM (10/24/2024 4:47 PM EDT) Only the most recent of3 resultswithin the time period is included. PROTHROMBIN TIME 9.8 9.0 - 11.6 sec TBH TBH INR <0.93 TBH Comment: DESIRED INR: 2.0-3.0 CONDITIONS NOT LISTED BELOW 2.5-3.5 FOR PROSTHETIC HEART VALVE REPLACEMENT 2.5-3.5 RECURRENT THROMBOSIS 10/24/2024 4:47 PM EDT 10/24/2024 4:53 PM EDT Narrative CLIN[facility] - 10/24/2024 5:12 PM EDT Negar Zita DO CL[facility] Final Result Performing Organization Address [facility]/ZIP Co de Phone Number [facility] * (ABNORMAL) [facility] AST (10/24/2024 4:47 PM EDT) Only the most recent of3 resultswithin the time period is included. ASPARTATE AMINO TRANSFERASE 12(L) 15 - 37 U/L TB 10/24/2024 4:47 PM EDT 10/24/2024 4:53 PM EDT Narrative CLINIS[facility]NC - 10/24/2024 5:11 PM EDT Generic External Data Provider [facility] F inal Result Performing Organization Address [facility]/ZIP Co de Phone Number [facility] * [facility] APTT (10/24/2024 4:47 PM EDT) Only the most recent of3 resultswithin the time period is included. PARTIAL THROMBOPLASTIN TIME 24.7 22.3 - 36.2 sec TB 10/24/2024 4:47 PM EDT 10/24/2024 4:53 PM EDT Narrative CLINISYNC - 10/24/2024 5:12 PM EDT Negar Zita DO [facility]IN[facility] Final Result Performing Organization Address [facility]/ZIP Co de Phone Number [facility] * [facility] ALT (10/24/2024 4:47 PM EDT) Only the most recent of2 resultswithin the time period is included. ALANINE AMINOTRANSFERASE 20 14 - 59 U/L TB 10/24/2024 4:47 PM EDT 10/24/2024 4:53 PM EDT Narrative CLINISYNC - 10/24/2024 5:11 PM EDT Generic External Data Provider CLIN[facility]NC F inal Result Performing Organization Address [facility] de Phone Number [facility] * ALL URIC ACID (10/24/2024 4:47 PM EDT) Only the most recent of3 resultswithin the time period is included. URIC ACID 3.7 2.6 - 6.0 mg/dL TB 10/24/2024 4:47 PM EDT 10/24/2024 4:53 PM EDT Narrative CLINISYNC - 10/24/2024 5:11 PM EDT us Generic External Data Provider CLIN[facility]NC F inal Result Performing Organization Address [facility] de Phone Number [facility]IN[facility] * ALL LDH (10/24/2024 4:47 PM EDT) Only the most recent of2 resultswithin the time period is included. LACTATE DEHYDROGENASE 142 81 - 234 U/L TB 10/24/2024 4:47 PM EDT 10/24/2024 4:53 PM EDT Narrative CLINISYNC - 10/24/2024 5:11 PM EDT Generic External Data Provider CLIN[facility]YNC F inal Result Performing Organization Address City/[facility] Co de Phone Number CLIN[facility]NC TB * (ABNORMAL) ALL CBC WITH AUTO DIFF (10/24/2024 4:47 PM EDT) Only the most recent of4 resultswithin the time period is included. TBH WBC 9.4 4.0 - 11.0 10 3/uL TBH TBH RBC 3.24(L) 4.20 - 5.40 10 6/uL TBH TBH HGB 9.8(L) 12.0 - 16.0 g/dL TBH TBH HCT 28.9(L) 36.0 - 48.0 % TBH TBH MCV 89.2 81.0 - 99.0 fL TBH TBH MCH 30.2 26.7 - 34.0 pg TBH TBH MCHC 33.9 29.9 - 35.2 g/dL TBH TBH RDW 13.0 11.0 - 15.0 % TBH TBH PLT 231 150 - 450 10 3/uL TBH TBH MPV 10.6 9.5 - 13.5 fL TBH NEUTROPHILS PERCENT AUTO 72.0 43.0 - 75.0 % TBH LYMPHOCYTES PERCENT AUTO 17.6(L) 20.5 - 60.0 % TBH MONOCYTES PERCENT AUTO 8.0 1.7 - 12.0 % TBH TBH EO % 1.2 0.9 - 7.0 % TBH BASOPHILS PERCENT AUTO 0.3 0.2 - 2.0 % TBH IMMATURE GRANULOCYTES PCT AUTO 0.9(H) 0.0 - 0.5 % TBH NEUTROPHILS ABSOLUTE AUTO 6.7(H) 1.4 - 6.5 10 3/uL TBH LYMPHOCYTES ABSOLUTE AUTO 1.7 1.2 - 3.8 10 3/uL TBH MONOCYTES ABSOLUTE AUTO 0.8 0.3 - 0.8 10 3/uL TBH TBH EO # 0.1 0.0 - 0.7 10 3/uL TBH BASOPHILS ABSOLUTE AUTO 0.0 0.0 - 0.1 10 3/uL TBH IMMATURE GRANULOCYTES ABS AUTO 0.08(H) 0.00 - 0.03 10 3/uL TBH 10/24/2024 4:47 PM EDT 10/24/2024 4:53 PM EDT Narrative CLINISYNC - 10/24/2024 5:02 PM EDT Negar Zita DO CLINISYNC Final Result Performing Organization Address [facility]/ZIP Co de Phone Number [facility] * ALL BUN (10/24/2024 4:47 PM EDT) Only the most recent of3 resultswithin the time period is included. BLOOD UREA NITROGEN 8.0 7.0 - 18.0 mg/dL TB 10/24/2024 4:47 PM EDT 10/24/2024 4:53 PM EDT Narrative CLINISYNC - 10/24/2024 5:11 PM EDT us Generic External Data Provider CLINISYNC F inal Result Performing Organization Address [facility] Co de Phone Number [facility] * POCT urinalysis dipstick manually resulted (10/23/2024 [...] Urine 10/23/2024 1:58 PM EDT us Negar Zita DO POINT OF [...] menstrual period. TRANSCRIBED BY: ELECTRONICALLY SIGNED BY: MD Vira Hollis 10/03/2024 2:41 PM EDT FINDINGS: A single, [...] BY: ELECTRONICALLY SIGNED BY: Navjot Salvador MD Selina Denson PLUSH WEAVER IMG OB US PROCEDURES Final Re sult [...] CLINISYNC Final Result CLINISYNC TBH * (ABNORMAL) TBH UA (CLEAN/CATCH) INDIGO VAT TENDER CLOTH/MICRO IF IND. (09/12/2024 4:30 PM EDT) COLOR [...] us Negar Zita DO [facility] Final Result [facility] * Transthoracic echo (TTE) complete (08/24/2024 12:39 PM EDT) Anatomical Region Laterality Modality Heart Ultrasound 08/24/2024 12:3 9 PM EDT Narrative 08/24/2024 6:36 PM EDT [facility] [place] [address] Echocardiogram Signed Patient: Lissa Rojas MR#: [id number] : 1995 Acct:[id number] Age/Sex: 29 / F ADM Date: 08/24/24 Loc: Room: Type: [facility] Attending Dr: Jaime Mccarthy RN, MSN, [...] ml/m2 Doppler Measurements Calculations MV E max berncie: 98.5 cm/sec Ao V2 max: 148.0 cm/sec [...] 1239 Signed By: Iveth Ding MD 08/24/24 3305 Procedure Note Iveth Ding MD - 08/24/2024 [facility] [place] [address] [place] [address] Echocardiogram Signed Patient: Lissa Rojas FMR#: [id number] : 1995Acct:[id number] Age/Sex: 29 / FADM Date: 08/24/24 Loc: Room:Type: [facility] Attending Dr: Jaime Mccarthy RN, MSN, [...] 1239 Signed By: Iveth Ding MD 08/24/24 4215 us Jaime Mccarthy NP CV ECHO PROCEDURES Final Res ult * (ABNORMAL) GLUCOSE 1 HOUR (08/23/2024 10:49 AM EDT) Pathologist [facility] GLUCOSE 1 HOUR 181(H) <130 mg/dL TBH 08/23/2024 10:4 9 AM EDT 08/23/2024 10:51 AM EDT Narrative HARRY - 08/23/2024 11:33 AM EDT us Negar Ahumada DO LAB BLOOD ORDERABLES Final Resul t [facility] * US OB INCOMPLETE ANATOMY (08/07/2024 9:48 AM EDT) Anatomical Region Laterality Modality Other 08/07/2024 9:48 AM EDT Narrative 08/07/2024 9:50 [place] [address] Ultrasound Report Signed Patient: LISSA ROJAS MR#: [id number] : 1995 Acct:[id number] Age/Sex: 29 / F ADM Date: 08/04/24 Loc: US Attending Dr: Negar Ahumada D.O. Ordering Physician: Negar Ahumada D.O. Date of Service: 08/04/24 Procedure(s): US OB incomplete anatomy Accession Number(s): [id number] cc: Negar Ahumada D.O.; LITO GUERRERO [place] [address] Patient Name: LISSA ROJAS MRN: [facility]:[id number] date: 1995 Sex: F Assigned Patient Location: US Current Patient Location: Accession/Order Number: [id number] Exam Date: 08/07/2024 09:41 Report Date: 08/07/2024 [...] Gage M.D. 08/07/2024 9:48 AM Dictation Location: [place] [address] Electronically authenticated by: [id number] Y Date: 08/07/2024 09:48 Dictated By: Paula Gage M.D. Signed By: 08/07/24949 DD/ 7 TD/TT: Sample Sewer: Procedure Note Radiology, Radiologist, - 08/07/2024 [place] [address] Ultrasound Report Signed Patient: CONSTANTINE ROJAS#: [id number] : 1995Acct:[id number] Age/Sex: 29 / FADM Date: 08/04/24 Loc: US Attending Dr: Negar Ahumada D.O. Ordering Physician: Negar Ahumada D.O. Date of Service: 08/04/24 Procedure(s): US OB incomplete anatomy Accession Number(s): [id number] cc: Negar Ahumada D.O.; LITO GUERRERO [place] [address] Patient Name: LISSA ROJAS MRN: [facility]:[id number] date: 1995 Sex: F Assigned Patient Location: US Current Patient Location: Accession/Order Number: [id number] Exam Date: 08/07/2024 09:41 Report Date: 08/07/2024 [...] Gage M.D. 08/07/2024 9:48 AM Dictation Location: [place] [address] Electronically authenticated by: [id number] Y Date: 9:48 Dictated By: Paula Gage M.D. Signed By:08/07/2450 DD/ TD/TT: Sample Sewer: us Generic External Data Provider [facility] Final Result from Last 3 Months Additional Health Concerns Active Problems Noted Date Diagnosed Date OB Reminders 04/30/2024 Insurance [facility] Address: [facility] [id number] [place] [phone] [employer] Care Teams Operating Room Rn Relationship Specialty Start Date End Date Lito Guerrero MD [address] [place] [address] PCP - General Internal Medicine 10/05/22
--- OUTSIDE RECORDS SUMMARY | 2024-10-26 14:23 | XMS_ITS | Encounter Summary ---
Author Organization [facility] Address [address] [place] [address] Care Team Providers Care Main Entree Cook And Cashier Name Role Phone Robles Goldsmith DO Unavailable + [phone] Josefina Harris RN Unavailable [phone] Source Comments In the event this information is protected by the Federal Confidentiality of Alcohol and Drug AbusePatient Records regulations: The Federal rules restrict any use of the information to criminally investigate or prosecute any alcohol or drug abuse patient.[facility] Encounter Details Date Type Department Care Team (Late st Contact Info) Description 02/17/2024 Patient Msg Reproductive Endocrinology Infertility [address] [place] [address] Shaina Edge MD [address] [place] [id number] PCOS supplements Social History Tobacco Use Types [...] is lower risk 4 12/21/2023 Data from: https://www.neighborhoodatlas.medicine.[facility]/. Last address used for calculation [address] 12/21/2023 Comments No Sex [...] on filedocumented in this encounter Care Teams Main Entree Cook And Cashier Relationship Specialty Start Date End Date Robles Goldsmith DO [address] [place] [address] Referring Obstetrics 10/13/22 [place] [address] [address] [place], [place] [id number] Specialty Software Qa System Specialist 04/12/24 documented as of this encounter
--- OUTSIDE RECORDS SUMMARY | 2024-10-26 14:23 | XMS_ITS | Encounter Summary ---
Author Organization [facility] Address [address] [place] [address] Care Team Providers Care Commodity Merchant Name Role Phone Robles Goldsmith DO Unavailable [phone] Josefina Harris RN Unavailable [phone] Source Comments In the event this information is protected by the Federal Confidentiality of Alcohol and Drug AbusePatient Records regulations: The Federal rules restrict any use of the information to criminally investigate or prosecute any alcohol or drug abuse patient.[facility] Encounter Details Date Type Department Care Team (Late st Contact Info) Description 01/13/2023 Patient Msg Reproductive Endocrinology Infertility [address] [place], [place] [id number] Provider, Ccf Bloodwork results Social History Tobacco [...] on filedocumented in this encounter Care Teams Commodity Merchant Relationship Specialty Start Date End Date Robles Goldsmith DO [address] [facility] [address] [place] [address] Referring Obstetrics 10/13/22 [place] [address] [place] [address] Specialty Environmental Control Administrator 04/12/24 documented as of this encounter
--- OUTSIDE RECORDS SUMMARY | 2024-10-26 14:23 | XMS_ITS | Encounter Summary ---
Author Organization [facility] Address [address] [place] [address] Care Team Providers Care Liberal Arts Teacher Name Role Phone Robles Goldsmith DO Unavailable [phone] Josefina Harris RN Unavailable [phone] Source Comments In the event this information is protected by the Federal Confidentiality of Alcohol and Drug AbusePatient Records regulations: The Federal rules restrict any use of the information to criminally investigate or prosecute any alcohol or drug abuse patient.[facility] Encounter Details Date Type Department Care Team (Late st Contact Info) Description 02/11/2024 Patient Msg Family Medicine [address] [place], [place] [phone] Provider, Ccf Appointment Cancellation Social History Tobacco [...] lower risk 4 12/21/2023 Data from: https://www.neighborhoodatlas.medicine.[facility].edu/. Last address used for calculation [address] [place] [address] 12/21/2023 Comments No Sex and Gender Information Value Date Recorded Sex Assigned at Female 01/04/2023 6:38 PM EDT Legal Sex Female 10:39 AM EDT Gender Identity Female 01/04/2023 6:38 PM EDT Sexual Orientation Not on file documented as of this encounter Plan of Treatment Not on file documented as of this encounter Visit Diagnoses Not on filedocumented in this encounter Care Teams Liberal Arts Teacher Relationship Specialty Start Date End Date Robles Goldsmith DO [address] [facility] [address] [place] [address] Referring Obstetrics 10/13/22 [place] [address] [place] [address] Specialty Services Mgr 04/12/24 documented as of this encounter
--- OUTSIDE RECORDS SUMMARY | 2024-10-26 14:23 | XMS_ITS | Encounter Summary ---
Author Organization [facility] Address [address] [place] [address] Care Team Providers Care Biochemistry Specialist Name Role Phone Omer Velazquez MD Primary Care Provider [phone] Encounter Details Date Type Department Care Team (Late st Contact Info) Description 10/12/2024 Abstract [facility] [address] [facility] [place] [address] Saravanan Ahumada DO [address] [facility] [place] [address] Social History Tobacco Use Types Packs/Day Years [...] Visit [facility] [place] [facility] [address] [facility] [place] [address] Saravanan Ahumada DO [address] [facility] [place] [address] 07/24/2025 9:15 AM EDT Office Visit HEENA Hassan Internal Medicine [address] [place] [address] documented as of this encounter Goals Goal Patient Goal Type Associated Problems Recent Progress Patient-Stated? Author Reminders Care Plan OB Reminders No Open Scheduling, Background documented as of this encounter Visit Diagnoses Not on filedocumented in this encounter Additional Health Concerns Active Problems Noted Date Diagnosed Date OB Reminders 04/30/2024 documented as of this encounter Care Teams Biochemistry Specialist Relationship Specialty Start Date End Date Omer Velazquez MD [address] [place] [address] PCP - General Internal Medicine 10/05/22 documented as of this encounter
--- OUTSIDE RECORDS SUMMARY | 2024-10-26 14:23 | XMS_ITS | Encounter Summary ---
Author Organization [facility] Address [address] [place] [address] Care Team Providers Care Vp Director Of Finance Name Role Phone Robles Goldsmith DO Unavailable [phone] Josefina Harris RN Unavailable [phone] Source Comments In the event this information is protected by the Federal Confidentiality of Alcohol and Drug AbusePatient Records regulations: The Federal rules restrict any use of the information to criminally investigate or prosecute any alcohol or drug abuse patient.[facility] Encounter Details Date Type Department Care Team (Late st Contact Info) Description 01/25/2023 Patient Msg Reproductive Endocrinology Infertility [address] [place] [address] Shaina Edge MD [facility]0 [place] [phone] MyRiad results Social History Tobacco Use Types [...] filedocumented in this encounter Care Teams Vp Director Of Finance Relationship Specialty Start Date End Date Robles Goldsmith DO [address] [facility] 210 [place] [address] Referring Obstetrics 10/13/22 [place] [address] [place] [address] Specialty Corrections Counselor 04/12/24 documented as of this encounter
--- OUTSIDE RECORDS SUMMARY | 2024-10-26 14:23 | XMS_ITS | Encounter Summary ---
Author Organization [facility] Address [address] [place] [address] Care Team Providers Care Metropolitan Editor Name Role Phone Omer Velazquez MD Primary Care Provider [phone] Encounter Details Date Type Department Care Team (Late st Contact Info) Description 10/16/2024 Bamboo flowsheet [facility] [place] [facility] [address] [facility] [place] [address] Saravanan Ahumada DO [address] [facility] [address] [place], [facility] Social History Tobacco Use Types Packs/Day Years [...] AM EDT Visit [facility] [place] [facility] [address] [facility] [place] [address] Saravanan Ahumada DO [address] [facility] [place] [address] 07/24/2025 9:15 AM EDT Office Visit NOMTimothy Hassan Internal Medicine [address] [facility] 230 [place] [address] documented as of this encounter Goals Goal Patient Goal Type Associated Problems Recent Progress Patient-Stated? Author Reminders Care Plan OB Reminders No Open Scheduling, Background documented as of this encounter Visit Diagnoses Not on filedocumented in this encounter Additional Health Concerns Active Problems Noted Date Diagnosed Date OB Reminders 04/30/2024 documented as of this encounter Care Teams Metropolitan Editor Relationship Specialty Start Date End Date Omer Velazquez MD [address] [place] [address] PCP - General Internal Medicine 10/05/22 documented as of this encounter
--- OUTSIDE RECORDS SUMMARY | 2024-10-26 14:23 | XMS_ITS | Encounter Summary ---
Author Organization [facility] Address [address] [place] [address] Phone Care Team Providers Care Fryer Operator Name Role Phone Omer Velazquez MD Primary Care Provider [phone] Encounter Details Date Type Department Care Team (Late st Contact Info) Description 10/18/2024 Scanned Document [facility] [address] [place] [phone] Scanning, Generic Provider Social History Tobacco Use [...] documented as of this encounter Care Teams Fryer Operator Relationship Specialty Start Date End Date Omer Velazquez MD [address] [place] [address] PCP - General Internal Medicine 02/14/24 documented as of this encounter
--- OUTSIDE RECORDS SUMMARY | 2024-10-26 14:23 | XMS_ITS | Encounter Summary ---
Author Organization [facility] tem Address [id number] [address] [place] [address] Care Team Providers Care Computer Programming Professor Name Role Phone Unavailable Primary Care Provider Unavailabl e Encounter Details Date Type Department Care Team (Late st Contact Info) Description 10/24/2024 Orders Only Maternal- Medicine at [facility] [address] [place] [address] Ref Prov, [place] [address] Social History Tobacco Use Types Packs/Day Years [...]
--- OUTSIDE RECORDS SUMMARY | 2024-10-26 14:23 | XMS_ITS | Encounter Summary ---
Author Organization [facility] Address [address] [place] [address] Care Team Providers Care Customs Director Name Role Phone Robles Goldsmith DO Unavailable [phone] Josefina Harris RN Unavailable [phone] Source Comments In the event this information is protected by the Federal Confidentiality of Alcohol and Drug AbusePatient Records regulations: The Federal rules restrict any use of the information to criminally investigate or prosecute any alcohol or drug abuse patient.[facility] Encounter Details Date Type Department Care Team (Late st Contact Info) Description 01/20/2023 Get Medical Advice Reproductive Endocrinology Infertility [address] [place] [address] Shaina Edge MD [facility]0 [place] [phone] ATTN: Domenica Social History Tobacco Use Types [...] on filedocumented in this encounter Care Teams Customs Director Relationship Specialty Start Date End Date Robles Goldsmith DO [address] [facility] 210 [place] [address] Referring Obstetrics 10/13/22 [place] [address] [place] [address] Specialty Data Services Developer 04/12/24 documented as of this encounter
--- OUTSIDE RECORDS SUMMARY | 2024-10-26 14:23 | XMS_ITS | Encounter Summary ---
Author Organization [facility] Address [address] [place] [address] Care Team Providers Care Quill Buncher And Sorter Name Role Phone Omer Velazquez MD Primary Care Provider [phone] Encounter Details Date Type Department Care Team (Late st Contact Info) Description 10/05/2022 Abstract NOMTimothy LAFLEUR [address] [facility] 210 [place] [address] Robles Goldsmith DO [address] [facility] 210 [place] [address] Social History Tobacco Use Types Packs/Day Years [...] EDT Visit HEENA LAFLEUR [address] [place] [address] Saravanan Ahumada DO [address] [place] [address] 07/24/2025 9:15 AM EDT Office Visit [facility] Internal Medicine [address] [place] [address] documented as of this encounter Visit Diagnoses Not on filedocumented in this encounter Care Teams Quill Buncher And Sorter Relationship Specialty Start Date End Date Omer Velazquez MD [address] [place] [address] PCP - General Internal Medicine 10/05/22 documented as of this encounter
--- OUTSIDE RECORDS SUMMARY | 2024-10-26 14:23 | XMS_ITS | Encounter Summary ---
Author Organization [facility] Address [address] [place] [address] Care Team Providers Care Ground Instructor Advanced Name Role Phone Omer Velazquez MD Primary Care Provider [phone] Encounter Details Date Type Department Care Team (Late Contact Info) Description 10/24/2024 Clinisync Result Encounter NOMS External [...] AM EDT Visit [facility] [place] [facility] [address] [place] [address] Saravanan Ahumada, [address] [facility] [place] [address] 07/24/2025 9:15 AM EDT Office Visit HEENA Hassan Internal Medicine [address] [place] [address] documented as of this encounter Goals Goal Patient Goal Type Associated Problems Recent Progress Patient-Stated? Author Reminders Care Plan OB Reminders No Open Scheduling, Background documented as of this encounter Procedures Procedure Name Priority Date/Time Associated Diagnosis Comments TBH CREATININE Routine 10/24/2024 4:47 PM EDT SRMCO[facility] PROTHROMBIN TIME INR W/O COUM Routine 10/24/2024 4:47 PM EDT CCF AST Routine 10/24/2024 4:47 PM EDT CCF APTT Routine 10/24/2024 4:47 PM EDT CCF ALT Routine 10/24/2024 4:47 PM EDT ALL URIC ACID Routine 10/24/2024 4:47 PM EDT ALL LDH Routine 10/24/2024 4:47 PM EDT ALL CBC WITH AUTO DIFF Routine 10/24/2024 4:47 PM EDT ALL BUN Routine 10/24/2024 4:47 PM EDT documented in this encounter Results * CCF APTT (10/24/2024 4:47 PM EDT) PARTIAL THROMBOPLASTIN TIME 24.7 22.3 - 36.2 sec TB 10/24/2024 4:47 PM EDT 10/24/2024 4:53 PM EDT Narrative CLINISYNC - 10/24/2024 5:12 PM EDT [facility] MCDONALD Final Result Performing Organization Address [facility] Co de Phone Number [facility] * [facility] PROTHROMBIN TIME INR W/O COUM (10/24/2024 4:47 PM EDT) PROTHROMBIN TIME 9.8 9.0 - 11.6 sec TBH TBH INR <0.93 TBH Comment: DESIRED INR: 2.0-3.0 CONDITIONS NOT LISTED BELOW 2.5-3.5 FOR PROSTHETIC HEART VALVE REPLACEMENT 2.5-3.5 RECURRENT THROMBOSIS 10/24/2024 4:47 PM EDT 10/24/2024 4:53 PM EDT Narrative CLINISYNC - 10/24/2024 5:12 PM EDT [facility] Zita FRYE Final Result Performing Organization Address [facility]/ZIP Co de Phone Number [facility] * ALL LDH (10/24/2024 4:47 PM EDT) LACTATE DEHYDROGENASE 142 81 - 234 U/L TB 10/24/2024 4:47 PM EDT 10/24/2024 4:53 PM EDT Narrative CLINISYNC - 10/24/2024 5:11 PM EDT Generic External Data Provider CLINISYNC F inal Result Performing Organization Address City/[facility]/ZIP Co de Phone Number [facility] * CCF ALT (10/24/2024 4:47 PM EDT) ALANINE AMINOTRANSFERASE 20 14 - 59 U/L TB 10/24/2024 4:47 PM EDT 10/24/2024 4:53 PM EDT Narrative CLINISYNC - 10/24/2024 5:11 PM EDT Generic External Data Provider CLINISYNC F inal Result Performing Organization Address City/[facility]/ZIP Co de Phone Number CLINISYNC TB * (ABNORMAL) CCF AST (10/24/2024 4:47 PM EDT) ASPARTATE AMINO TRANSFERASE 12(L) 15 - 37 U/L TBH 10/24/2024 4:47 PM EDT 10/24/2024 4:53 PM EDT Narrative CLINISYNC - 10/24/2024 5:11 PM EDT Generic External Data Provider CLINISYNC F inal Result Performing Organization Address [facility] de Phone Number CLINISYNC TB * ALL URIC ACID (10/24/2024 4:47 PM EDT) URIC ACID 3.7 2.6 - 6.0 mg/dL TBH 10/24/2024 4:47 PM EDT 10/24/2024 4:53 PM EDT Narrative CLINISYNC - 10/24/2024 5:11 PM EDT Generic External Data Provider CLINISYNC F inal Result Performing Organization Address [facility] de Phone Number CLINISYNC TB * (ABNORMAL) TBH CREATININE (10/24/2024 4:47 PM EDT) CREATININE 0.52(L) 0.55 - 1.02 mg/dL TBH TBH EGFR-AF BELARUSIAN >60 >=60 mL/min/1.7 3m 2 TBH TBH EGFR-NON AF BELARUSIAN >60 >=60 mL/min/1.7 3m 2 TBH 10/24/2024 4:47 PM EDT 10/24/2024 4:53 PM EDT Narrative CLINISYNC - 10/24/2024 5:11 PM EDT Generic External Data Provider CLINISYNC F inal Result Performing Organization Address City/[facility]/ZIP Co de Phone Number CLINISYNC TB * ALL BUN (10/24/2024 4:47 PM EDT) Pathologist [facility] BLOOD UREA NITROGEN 8.0 7.0 - 18.0 mg/dL TB 10/24/2024 4:47 PM EDT 10/24/2024 4:53 PM EDT Narrative CLINISYNC - 10/24/2024 5:11 PM EDT us Generic External Data Provider CLINISYNC F inal Result [facility] * (ABNORMAL) ALL CBC WITH AUTO DIFF (10/24/2024 4:47 PM EDT) [facility] TB WBC 9.4 4.0 - 11.0 10 3/uL TBH TBH RBC 3.24(L) 4.20 - 5.40 10 6/uL TBH TBH HGB 9.8(L) 12.0 - 16.0 g/dL TB TB HCT 28.9(L) 36.0 - 48.0 % TBH TBH MCV 89.2 81.0 - 99.0 fL TBH TB MCH 30.2 26.7 - 34.0 pg TBH TB MCHC 33.9 29.9 - 35.2 g/dL TB TB RDW 13.0 11.0 - 15.0 % TBH [...] Narrative CLINISYNC - 10/24/2024 5:02 PM EDT us Saravanan Zita DO CLINISYNC Final Result [facility] documented in this encounter Visit Diagnoses Not on filedocumented in this encounter Additional Health Concerns Active Problems Noted Date Diagnosed Date OB Reminders 04/30/2024 documented as of this encounter Care Teams Ground Instructor Advanced Relationship Specialty Start Date End Date Omer Velazquez MD [address] [place] [address] PCP - General Internal Medicine 10/05/22 documented as of this encounter
--- OUTSIDE RECORDS SUMMARY | 2024-10-26 14:23 | XMS_ITS | Encounter Summary ---
Author Organization [facility] Address [address] [place] [address] Care Team Providers Care Southeast Regional Sales Manager Name Role Phone Omer Velazquez MD Primary Care Provider [phone] Encounter Details Date Type Department Care Team (Late st Contact Info) Description 01/13/2023 Orders Only NOMTimothy [place] [facility] [address] [facility] [address] [place] [address] Shelby Hernandez PA [address] [place] [address] Social History Tobacco Use Types Packs/Day Years [...] [facility] [place] [phone] Saravanan Ahumada DO [address] [place] [address] 07/24/2025 9:15 AM EDT Office Visit NOMS oM Internal Medicine [address] [place] [address] documented as of this encounter Visit Diagnoses Not on filedocumented in this encounter Care Teams Southeast Regional Sales Manager Relationship Specialty Start Date End Date Omer Velazquez MD [address] [place] [address] PCP - General Internal Medicine 10/05/22 documented as of this encounter
--- OUTSIDE RECORDS SUMMARY | 2024-10-26 14:23 | XMS_ITS | Encounter Summary ---
Author Organization [facility] Address [address] [place] [address] Care Team Providers Care Exchange Specialist Name Role Phone Omer Velazquez MD Primary Care Provider [phone] Encounter Details Date Type Department Care Team (Late st Contact Info) Description 10/24/2024 Telephone NOMS Shannon LAFLE[facility] [address] [place] [address] [place] [address] Kayla Ashley LPN Social History Tobacco [...] 10/24/2024 10:12 AM EDT 10:10am Yesi from [facility] called and voiced that she has patient setup for delivery next week. It was too close to get patient in with [facility] for women's health services, so she setup with [facility] Delivery. Patient is going to arrive on Wednesday10/30/24 @0730. Yesi will reach out to patient to notify her of all the details. Kayla Mason LPN documented in this encounter Plan of Treatment Upcoming Encounters Date Type Department Care Team (Late st Contact Info) Description 12/11/2024 8:50 AM EDT Visit [facility]othy [place] [facility] [address] [place] [address] Saravanan Ahumada DO [address] [facility] [place] [address] 07/24/2025 9:15 AM EDT Office Visit [facility] Mo Internal Medicine [address] [place] [address] documented as of this encounter Goals Goal Patient Goal Type Associated Problems Recent Progress Patient-Stated? Author Reminders Care Plan OB Reminders No Open Scheduling, Background documented as of this encounter Visit Diagnoses Not on filedocumented in this encounter Additional Health Concerns Active Problems Noted Date Diagnosed Date OB Reminders 04/30/2024 documented as of this encounter Care Teams Exchange Specialist Relationship Specialty Start Date End Date Omer Velazquez MD [address] [place] [address] PCP - General Internal Medicine 10/05/22 documented as of this encounter
--- OUTSIDE RECORDS SUMMARY | 2024-10-26 14:23 | XMS_ITS | Encounter Summary ---
Author Organization [facility] Address [address] [place] [address] Care Team Providers Care Concrete Grinder Operator Name Role Phone Omer Velazquez MD Primary Care Provider [phone] Encounter Details Date Type Department Care Team (Late st Contact Info) Description 10/16/2024 Telephone [facility]S [facility] [address] [place] [place] [address] [place] [address] [place] [address] Social History Tobacco Use Types Packs/Day Years [...] AM EDT Visit [facility] [place] [facility] [address] [facility] [address] Saravanan Ahumada DO [address] [facility] [address] 07/24/2025 9:15 AM EDT Office Visit NOMTimothy [facility] Internal Medicine [address] [facility] [address] [place] [address] documented as of this encounter Goals Goal Patient Goal Type Associated Problems Recent Progress Patient-Stated? Author Reminders Care Plan OB Reminders No Open Scheduling, Background documented as of this encounter Visit Diagnoses Diagnosis Anemia, unspecified type documented in this encounter Additional Health Concerns Active Problems Noted Date Diagnosed Date OB Reminders 04/30/2024 documented as of this encounter Care Teams Concrete Grinder Operator Relationship Specialty Start Date End Date Omer Velazquez MD [address] [place] [address] PCP - General Internal Medicine 10/05/22 documented as of this encounter
--- OUTSIDE RECORDS SUMMARY | 2024-10-26 14:23 | XMS_ITS | Encounter Summary ---
Author Organization [facility] Address [address] [place] [address] Care Team Providers Care Rig Welder Name Role Phone Lito Guerrero MD Primary Care Provider [phone] Encounter Details Date Type Department Care Team (Late st Contact Info) Description 10/17/2024 Clinisync Result Encounter NOMS External Department Unsolicited Saravanan Ahumada, DO [address] [facility] [place] [address] Social History Tobacco Use Types Packs/Day Years [...] AM EDT Visit [facility] [address] [place] [address] Saravanan Ahumada DO [address] [place] [address] 07/24/2025 9:15 AM EDT Office Visit [facility]Tim[facility] Internal Medicine [address] [place] [address] documented as of this encounter Goals Goal [...] PM EDT Narrative 10/17/2024 5:02 PM EDT [address] [address] Ultrasound Report Signed Patient: LITO ROJAS MR#: [id number] : 1995 Acct:[id number] Age/Sex: 29 / F ADM Date: 10/17/24 Loc: [facility] 251-[address]: Saravanan Ahumada D.O. Ordering Physician: Saravanan Ahumada D.O. Date of Service: 10/17/24 Procedure(s): US OB BPP w non-stress Accession Number(s): [id number] cc: Saravanan Ahumada D.O.; LITO GUERRERO [address] [address] Patient Name: LITO ROJAS MRN: [id number] date: 1995 Sex: F Assigned Patient Location: [facility] Current Patient Location: [facility] Accession/Order Number: [id number] Exam Date: 10/17/2024 16:58 Report Date: 10/17/2024 [...] Barrett M.D. 10/17/2024 4:59 PM Dictation Location: [place] [address] Electronically authenticated by: [id number] Y Date: 10/17/2024 16:59 Dictated By: Kevin Barrett D.O. Signed By: 10/17/24 1702 DD/ 1659 TD/TT: Panama Hat Smearer: Procedure Note Radiology, Radiologist, MD - 10/17/2024 [place] [address] Ultrasound Report Signed Patient: LITO ROJAS FMR#: [id number] : 1995Acct:[id number] Age/Sex: 29 / FADM Date: 10/17/24 Loc: [facility] 251-[address]: Saravanan Ahumada D.O. Ordering Physician: Saravanan Ahumada D.O. Date of Service: 10/17/24 Procedure(s): US OB BPP w non-stress Accession Number(s): [id number] cc: Saravanan Ahumada D.O.; LITO GUERRERO [place] [address] Patient Name: LITO ROJAS MRN: [id number] date: 1995 Sex: F Assigned Patient Location: [facility] Current Patient Location: [facility] Accession/Order Number: [id number] Exam Date: 10/17/2024 16:58 Report Date: 10/17/2024 [...] Barrett M.D. 10/17/2024 4:59 PM Dictation Location: [employer] Electronically authenticated by: [id number] Y Date: 6:59 Dictated By: Kevin Barrett D.O. Signed By:10/17/24 1702 DD/ 165 TD/TT: Panama Hat Smearer: us Saravanan Ahumada DO [facility] Final Result documented in this encounter Visit Diagnoses Not on filedocumented in this encounter Additional Health Concerns Active Problems Noted Date Diagnosed Date OB Reminders 04/30/2024 documented as of this encounter Care Teams Rig Welder Relationship Specialty Start Date End Date Lito Guerrero MD [address] [facility] 230 [place] [address] PCP - General Internal Medicine 10/05/22 documented as of this encounter
--- OUTSIDE RECORDS SUMMARY | 2024-10-26 14:23 | XMS_ITS | Encounter Summary ---
Author Organization [facility] Address [address] [place] [address] Care Team Providers Care Lead Technician Name Role Phone Lito Guerrero MD Primary Care Provider [phone] Encounter Details Date Type Department Care Team (Late st Contact Info) Description 10/24/2024 Clinisync Result Encounter NOMS External Department Unsolicited Saravanan Ahumada, DO [address] [facility] [place] [address] Social History Tobacco Use Types Packs/Day Years [...] AM EDT Visit [facility] [address] [place] [address] Saravanan Ahumada DO [address] [place] [address] 07/24/2025 9:15 AM EDT Office Visit [facility]Tim[facility] Internal Medicine [address] [place] [address] documented as of this encounter Goals Goal Patient Goal Type Associated Problems Recent Progress Patient-Stated? Author Reminders Care Plan OB Reminders No Open Scheduling, Background documented as of this encounter Procedures Procedure Name Priority Date/Time Associated Diagnosis Comments US OB BPP W NON-STRESS 10/24/2024 10:02 PM EDT documented in this encounter Results * US OB BPP W NON-STRESS (10/24/2024 10:02 PM EDT) Anatomical Region Laterality Modality Other 10/24/2024 10:0 2 PM EDT Narrative 10/24/2024 10:05 [place] [address] Ultrasound Report Signed Patient: LITO ROJAS MR#: [id number] : 1995 Acct:[id number] Age/Sex: ADM Date: 10/24/24 Loc: US Attending Dr: Saravanan Ahumada D.O. Ordering Physician: Saravanan Ahumada D.O. Date of Service: 10/24/24 Procedure(s): US OB BPP w non-stress Accession Number(s): [id number] cc: Saravanan Ahumada D.O.; LITO GUERRERO [address] [address] Patient Name: LITO ROJAS MRN: [facility]:[id number] date: 1995 Sex: F Assigned Patient Location: [facility] Current Patient Location: Accession/Order Number: [id number] Exam Date: 10/24/2024 22:00 Report Date: 10/24/2024 22:02 At the request of: SARAVANAN AHUMADA DO [...] Levine M.D. 10/24/2024 10:02 PM Dictation Location: [place] [address] Electronically authenticated by: [id number] Y Date: 10/24/2024 22:02 Dictated By: Jose Levine M.D. Signed By: 10/24/242204 DD/ 01 TD/TT: Chip Drier: Procedure Note Radiology, Radiologist, - 10/24/2024 [place] [address] Ultrasound Report Signed Patient: LITO ROJAS FMR#: [id number] : 1995Acct:[id number] Age/Sex: Date: 10/24/24 Loc: US Attending Dr: Saravanan Ahumada D.O. Ordering Physician: Saravanan Ahumada D.O. Date of Service: 10/24/24 Procedure(s): US OB BPP w non-stress Accession Number(s): [id number] cc: Saravanan Ahumada D.O.; LITO GUERRERO [place] [address] Patient Name: LITO ROJAS MRN: [facility]:[id number] date: 1995 Sex: F Assigned Patient Location: [facility] Current Patient Location: Accession/Order Number: [id number] Exam Date: 10/24/2024 22:00 Report Date: 10/24/2024 22:02 At the request of: SARAVANAN AHUMADA DO [...] Levine M.D. 10/24/2024 10:02 PM Dictation Location: [place] [address] Electronically authenticated by: [id number] Y Date: 2:02 Dictated By: Jose Levine M.D. Signed By:10/24/242204 DD/ 01 TD/TT: Chip Drier: us Saravanan Ahumada DO [facility] Final Result documented in this encounter Visit Diagnoses Not on filedocumented in this encounter Additional Health Concerns Active Problems Noted Date Diagnosed Date OB Reminders 04/30/2024 documented as of this encounter Care Teams Lead Technician Relationship Specialty Start Date End Date Lito Guerrero MD [address] [place] [address] PCP - General Internal Medicine 10/05/22 documented as of this encounter
--- OUTSIDE RECORDS SUMMARY | 2024-10-26 14:23 | XMS_ITS | Encounter Summary ---
Author Organization [facility] Address [address] [facility] [place] [address] Care Team Providers Care School Crossing Guard Name Role Phone Omer Velazquez MD Primary Care Provider [phone] Encounter Details Date Type Department Care Team (Late st Contact Info) Description 01/11/2023 Abstract [facility]OMTimothy Hassan Internal Medicine [address] [facility] 230 [place] [address] Omer Velazquez MD [address] [facility] 230 [place] [address] Social History Tobacco Use Types Packs/Day Years [...] AM EDT Visit [facility]EENA [facility] [address] [place] [address] Saravanan Ahumada DO [address] [place] [address] 07/24/2025 9:15 AM EDT Office Visit [facility]S Mo Internal Medicine [address] [place] [address] documented as of this encounter Visit Diagnoses Not on filedocumented in this encounter Care Teams School Crossing Guard Relationship Specialty Start Date End Date Omer Velazquez MD [address] [place] [address] PCP - General Internal Medicine 10/05/22 documented as of this encounter
--- OUTSIDE RECORDS SUMMARY | 2024-10-26 14:23 | XMS_ITS | Encounter Summary ---
Author Organization [facility] Address [address] [place] [address] Care Team Providers Care Assistant Front Desk Manager Name Role Phone Omer Velazquez MD Primary Care Provider [phone] Encounter Details Date Type Department Care Team [...] Ortega OBGYN [address] [place] [phone] Saravanan Ahumada, [address] [facility] [place] [address] 07/24/2025 9:15 AM EDT Office Visit HEENA Hassan Internal Medicine [address] [place] [address] documented as of this encounter Goals Goal [...] F inal Result Performing Organization Address City/[facility] Co de Phone Number [facility] TB * (ABNORMAL) [facility] AST (10/16/2024 9:48 AM EDT) ASPARTATE AMINO TRANSFERASE 12(L) 15 - 37 U/L TBH 10/16/2024 9:48 AM EDT 10/16/2024 9:50 AM EDT Narrative [facility] - 10/16/2024 11:27 AM EDT Generic External Data Provider [facility] F inal Result Performing Organization Address [facility] de Phone Number [facility] TB * ALL URIC ACID (10/16/2024 9:48 AM EDT) URIC ACID 3.5 2.6 - 6.0 mg/dL TB 10/16/2024 9:48 AM EDT 10/16/2024 9:50 AM EDT Narrative [facility] - 10/16/2024 11:27 AM EDT Generic External Data Provider [facility] F inal Result Performing Organization Address [facility] de Phone Number [facility]YDENISE TB * (ABNORMAL) TBH CREATININE (10/16/2024 9:48 AM EDT) CREATININE 0.52(L) 0.55 - 1.02 mg/dL TBH TBH EGFR-AF DJIBOUTIAN >60 >=60 mL/min/1.7 3m 2 TBH TBH EGFR-NON AF DJIBOUTIAN >60 >=60 mL/min/1.7 3m 2 TBH 10/16/2024 9:48 AM EDT 10/16/2024 9:50 AM EDT Narrative [facility] - 10/16/2024 11:27 AM EDT Generic External Data Provider [facility] F inal Result Performing Organization Address City/[facility] Co de Phone Number [facility] * (ABNORMAL) ALL BUN (10/16/2024 9:48 AM EDT) BLOOD UREA NITROGEN 6.0(L) 7.0 - 18.0 mg/dL TB 10/16/2024 9:48 AM EDT 10/16/2024 9:50 AM EDT Narrative [facility] - 10/16/2024 11:27 AM EDT Generic External Data Provider [facility] F inal Result Performing Organization Address [facility] de Phone Number [facility] * [facility] APTT (10/16/2024 9:48 AM EDT) PARTIAL THROMBOPLASTIN TIME 25.4 22.3 - 36.2 sec TB 10/16/2024 9:48 AM EDT 10/16/2024 9:50 AM EDT Narrative [facility] - 10/16/2024 10:10 AM EDT Selina PRADHANISYDENISE Final Result Performing Organization Address [facility] Phone Number [facility] * SRMCOH PROTHROMBIN TIME INR W/O COUM [...] NP [facility] Final Result Performing Organization Address [facility] de Phone Number [facility] * (ABNORMAL) ALL CBC WITH AUTO DIFF (10/16/2024 9:48 AM EDT) [facility] TB WBC 9.6 4.0 - 11.0 10 [...] - 10/16/2024 10:01 AM EDT Selina Janiya REFUND CLERK [facility] Final Result [facility] documented in this encounter Visit Diagnoses Not on filedocumented in this encounter Additional Health Concerns Active Problems Noted Date Diagnosed Date OB Reminders 04/30/2024 documented as of this encounter Care Teams Assistant Front Desk Manager Relationship Specialty Start Date End Date Omer Velazquez MD [address] [facility] 230 [place] [address] PCP - General Internal Medicine 10/05/22 documented as of this encounter
--- OUTSIDE RECORDS SUMMARY | 2024-10-26 14:23 | XMS_ITS | Encounter Summary ---
Author Organization [facility] Address [address] [place] [address] Care Team Providers Care Textbook Associate Name Role Phone Robles Goldsmith DO Unavailable [phone] Josefina Harris RN Unavailable [phone] Source Comments In the event this information is protected by the Federal Confidentiality of Alcohol and Drug AbusePatient Records regulations: The Federal rules restrict any use of the information to criminally investigate or prosecute any alcohol or drug abuse patient.[facility] Encounter Details Date Type Department Care Team (Late st Contact Info) Description 01/05/2023 Patient Msg Reproductive Endocrinology Infertility [address] [place], [place] [phone] Provider, Alli Received Voicemail Social History Tobacco [...] on filedocumented in this encounter Care Teams Textbook Associate Relationship Specialty Start Date End Date Robles Goldsmith DO [address] [facility] 210 [place] [address] Referring Obstetrics 10/13/22 [place] [address] [place] [address] Specialty Courseware Developer 04/12/24 documented as of this encounter
--- OUTSIDE RECORDS SUMMARY | 2024-10-26 14:23 | XMS_ITS | Encounter Summary ---
Author Organization [facility] tem Address [id number] [address] [place] [address] Care Team Providers Care Aurist Name Role Phone Unavailable Primary Care Provider Unavailabl e Encounter Details Date Type Department Care Team (Late st Contact Info) Description 10/24/2024 Documentation Maternal- Medicine at [facility] [address] [place] [address] Yesi Meade APRN-CNM [address], [address] [place] [address] Social History Tobacco Use Types Packs/Day Years [...] MILIND Mccormick - 10/24/2024 10:19 AM EDT [facility] recommendation is for patient to deliver at [facility] at 37 weeks gestation. Gambling Broker called [facility] regarding possibility of pt having [facility] appointment before 37 weeks. [facility] prefers pt to be scheduled for mIoL without appointment at [facility]. L&D contacted with patient information, including need for telemetry. mIOL set for 10/30/24 @ 0730. Patient to call [phone] prior to traveling on 10/30/24 to make sure of bed availability. Gambling Broker spoke with patient. Informed of mIOL scheduled for 10/30/24, to call before coming to confirm availability, where to park and enter hospital & how to get to L&D. Pt states understanding of plan. States she has an NST today and Wednesday in [place]. Denies questions or concerns. MILIND Mccormick 10/24/24 1026 documented in this encounter Plan of Treatment Not on file documented as of this encounter Visit Diagnoses Not on filedocumented in this encounter
--- OUTSIDE RECORDS SUMMARY | 2024-10-26 14:23 | XMS_ITS | Encounter Summary ---
Author Organization [facility] Address [address] [place] [address] Care Team Providers Care Mail Delivery Supervisor Name Role Phone Robles Goldsmith DO Unavailable + [phone] Josefina Harris RN Unavailable [phone] Source Comments In the event this information is protected by the Federal Confidentiality of Alcohol and Drug AbusePatient Records regulations: The Federal rules restrict any use of the information to criminally investigate or prosecute any alcohol or drug abuse patient.[facility] Encounter Details Date Type Department Care Team (Late st Contact Info) Description 09/10/2023 Patient Msg Reproductive Endocrinology Infertility [address] [address] Haritha Casiano APRN.PEER EDUCATOR [address] [place] [address] IUI information Social History Tobacco Use Types [...] on filedocumented in this encounter Care Teams Mail Delivery Supervisor Relationship Specialty Start Date End Date Robles Goldsmith DO [address] [facility] 210 [place] [address] Referring Obstetrics 10/13/22 [place] [address] [place] [address] Specialty Educational Consultant 04/12/24 documented as of this encounter
--- OUTSIDE RECORDS SUMMARY | 2024-10-26 14:23 | XMS_ITS | Encounter Summary ---
Author Organization [facility] Address [address] [place] [address] Care Team Providers Care Acute Care Surgeon Name Role Phone Omer Velazquez MD Primary Care Provider [phone] Encounter Details Date Type Department Care Team (Late st Contact Info) Description 01/06/2023 Abstract NOMTimothy LAFLEUR [address] [facility] 210 [place] [address] Robles Goldsmith DO [address] [facility] [address] [place] [address] Social History Tobacco Use Types Packs/Day Years [...] AM EDT Visit NOMTimothy Ortega OBGYN [address] [place] [phone] Saravanan Ahumada DO [address] [place], [place] [address] 07/24/2025 9:15 AM EDT Office Visit NOMS Mo Internal Medicine [address] [facility] 230 [place] [address] documented as of this encounter Visit Diagnoses Not on filedocumented in this encounter Care Teams Acute Care Surgeon Relationship Specialty Start Date End Date Omer Velazquez MD [address] [place] [address] PCP - General Internal Medicine 10/05/22 documented as of this encounter
--- OUTSIDE RECORDS SUMMARY | 2024-10-26 14:23 | XMS_ITS | Encounter Summary ---
Author Organization [facility] Address [address] [place] [address] Care Team Providers Care Cold Saw Operator Name Role Phone Robles Goldsmith DO Unavailable [phone] Josefina Harris RN Unavailable [phone] Source Comments In the event this information is protected by the Federal Confidentiality of Alcohol and Drug AbusePatient Records regulations: The Federal rules restrict any use of the information to criminally investigate or prosecute any alcohol or drug abuse patient.[facility] Encounter Details Date Type Department Care Team (Late st Contact Info) Description 08/12/2023 Patient [facility] -[address] [place] [address] Cee Palafox RPh At your next appointment, choose [facility]. Social History Tobacco Use [...] on filedocumented in this encounter Care Teams Cold Saw Operator Relationship Specialty Start Date End Date Robles Goldsmith DO [address] [facility] 210 [place] [address] Referring Obstetrics 10/13/22 [place] [address] [place] [address] Freight Conductor 04/12/24 documented as of this encounter
--- OUTSIDE RECORDS SUMMARY | 2024-10-26 14:23 | XMS_ITS | Encounter Summary ---
Author Organization [facility] Address [address] [place] [address] Care Team Providers Care Petrol Tanker Driver Name Role Phone Robles Goldsmith DO Unavailable + [phone] Josefina Harris RN Unavailable [phone] Source Comments In the event this information is protected by the Federal Confidentiality of Alcohol and Drug AbusePatient Records regulations: The Federal rules restrict any use of the information to criminally investigate or prosecute any alcohol or drug abuse patient.[facility] Encounter Details Date Type Department Care Team (Late st Contact Info) Description 09/10/2023 Patient Msg Reproductive Endocrinology Infertility [address] [place] [address] Haritha Casiano APRN.PLASTIC PRESS OPERATOR [address] [facility] [address] IUI facts Social History Tobacco Use Types [...] on filedocumented in this encounter Care Teams Petrol Tanker Driver Relationship Specialty Start Date End Date Robles Goldsmith DO [address] [facility] 210 [place] [address] Referring Obstetrics 10/13/22 [place] [address] [place] [address] Specialty Director Of Programming 04/12/24 documented as of this encounter
--- OUTSIDE RECORDS SUMMARY | 2024-10-26 14:24 | XMS_ITS | Encounter Summary ---
Author Organization [facility] Address [address] [place] [address] Care Team Providers Care Supervisor Edging Name Role Phone Robles Goldsmith DO Unavailable + [phone] Josefina Harris RN Unavailable [phone] Source Comments In the event this [...] Description 10/22/2023 Patient Msg Reproductive Endocrinology Infertility [address] [place], [place] [address] Provider, Alli 10/26/23 Social History Tobacco Use [...] filedocumented in this encounter Care Teams Supervisor Edging Relationship Specialty Start Date End Date Robles Goldsmith [address] [facility] 210 [place] [address] Referring Obstetrics 10/13/22 [place] [address] [place] [address] Specialty Sole Filler 04/12/24 documented as of this encounter
--- OUTSIDE RECORDS SUMMARY | 2024-10-26 14:24 | XMS_ITS | Encounter Summary ---
Author Organization [facility] tem Address [id number] [address] [place] [address] Care Team Providers Care Birth Certificate Clerk Name Role Phone Unavailable Primary Care Provider Unavailabl e Encounter Details Date Type Department Care Team (Late st Contact Info) Description 09/14/2024 Orders Only Maternal- Medicine at [facility] [address] [place] [address] Torrie Posada, ARIC Social History Tobacco Use [...]
--- OUTSIDE RECORDS SUMMARY | 2024-10-26 14:24 | XMS_ITS | Encounter Summary ---
Author Organization [facility] Address [address] [place] [address] Care Team Providers Care Painting Instructor Name Role Phone Omer Velazquez MD Primary Care Provider Encounter Details Date Type Department Care Team (Late st Contact Info) Description 05/01/2024 Abstract [facility] [address] [facility] [place] [address] Saravanan Ahumada DO [address] [facility] [place] [address] Social History Tobacco Use Types Packs/Day Years [...] [address] [facility] [place] [address] Saravanan Ahumada DO [address] [facility] [place] [address] 07/24/2025 9:15 AM EDT Office Visit NOMTimothy Hassan Internal Medicine [address] [place] [address] documented as of this encounter Goals Goal Patient Goal Type Associated Problems Recent Progress Patient-Stated? Author Reminders Care Plan OB Reminders No Open Scheduling, Background documented as of this encounter Visit Diagnoses Not on filedocumented in this encounter Additional Health Concerns Active Problems Noted Date Diagnosed Date OB Reminders 04/30/2024 documented as of this encounter Care Teams Painting Instructor Relationship Specialty Start Date End Date Omer Velazquez MD [address] [place] [address] PCP - General Internal Medicine 10/05/22 documented as of this encounter
--- OUTSIDE RECORDS SUMMARY | 2024-10-26 14:24 | XMS_ITS | Encounter Summary ---
Author Organization [facility] Address [address] [place] [address] Care Team Providers Care Steel Fabricating Supervisor Name Role Phone Omer Velazquez MD Primary Care Provider [phone] Encounter Details Date Type Department Care Team (Late st Contact Info) Description 10/23/2024 Bamboo flowsheet [facility] [address] [place] [address] Saravanan Ahumada DO [address] [facility] [address] [place], [facility] Social History Tobacco Use Types [...] [facility] [address] [place] [address] Saravanan Ahumada DO [address] [place] [address] 07/24/2025 9:15 AM EDT Office Visit [facility] [address] [facility] [address] [place] [address] documented as of this encounter Goals Goal Patient Goal Type Associated Problems Recent Progress Patient-Stated? Author Reminders Care Plan OB Reminders No Open Scheduling, Background documented as of this encounter Visit Diagnoses Not on filedocumented in this encounter Additional Health Concerns Active Problems Noted Date Diagnosed Date OB Reminders 04/30/2024 documented as of this encounter Care Teams Steel Fabricating Supervisor Relationship Specialty Start Date End Date Omer Velazquez MD [address] [place] [address] PCP - General Internal Medicine 10/05/22 documented as of this encounter
--- OUTSIDE RECORDS SUMMARY | 2024-10-26 14:24 | XMS_ITS | Encounter Summary ---
Author Organization [facility] tem Address [id number] [address] [place] [address] Care Team Providers Care Back Grinder Name Role Phone Unavailable Primary Care Provider Unavailabl e Encounter Details Date Type Department Care Team (Late st Contact Info) Description 10/04/2024 Telephone Maternal- Medicine at [facility] [address] [place] [address] Aranza Beltran, RN Social History [...]
--- OUTSIDE RECORDS SUMMARY | 2024-10-26 14:24 | XMS_ITS | Encounter Summary ---
Author Organization [facility] Address [address] [place] [address] Care Team Providers Care Diabetes Education Coordinator Name Role Phone Omer Velazquez MD Primary Care Provider [phone] Encounter Details Date Type Department Care Team (Late st Contact Info) Description 05/01/2024 Abstract [facility] [address] [place] [id number] Saravanan Ahumada DO [address] [facility] [address] [place] [address] Social History Tobacco Use Types Packs/Day Years [...] AM EDT Visit [facility] [address] [address] Saravanan Ahumada DO [address] [facility] [place] [address] 07/24/2025 9:15 AM EDT Office Visit [facility] [address] [place] [address] documented as of this encounter Goals Goal Patient Goal Type Associated Problems Recent Progress Patient-Stated? Author Reminders Care Plan OB Reminders No Open Scheduling, Background documented as of this encounter Visit Diagnoses Not on filedocumented in this encounter Additional Health Concerns Active Problems Noted Date Diagnosed Date OB Reminders 04/30/2024 documented as of this encounter Care Teams Diabetes Education Coordinator Relationship Specialty Start Date End Date Omer Velazquez MD [address] [place] [address] PCP - General Internal Medicine 10/05/22 documented as of this encounter
--- OUTSIDE RECORDS SUMMARY | 2024-10-26 14:24 | XMS_ITS | Encounter Summary ---
Author Organization [facility] Address [address] [place] [address] Care Team Providers Care Die Inspector Name Role Phone Omer Velazquez MD Primary Care Provider [phone] Encounter Details Date Type Department Care Team (Late st Contact Info) Description 05/01/2024 Abstract [facility] [address] [facility] [phone] Saravanan Ahumada DO [address] [place] [address] Social History Tobacco Use Types Packs/Day Years [...] AM EDT Visit [facility] [address] [facility] [place] [address] Saravanan Ahumada DO [address] [place] [address] 07/24/2025 9:15 AM EDT Office Visit [facility] [address] [place] [address] documented as of this encounter Goals Goal Patient Goal Type Associated Problems Recent Progress Patient-Stated? Author Reminders Care Plan OB Reminders No Open Scheduling, Background documented as of this encounter Visit Diagnoses Not on filedocumented in this encounter Additional Health Concerns Active Problems Noted Date Diagnosed Date OB Reminders 04/30/2024 documented as of this encounter Care Teams Die Inspector Relationship Specialty Start Date End Date Omer Velazquez MD [address] [place] [address] PCP - General Internal Medicine 10/05/22 documented as of this encounter
--- OUTSIDE RECORDS SUMMARY | 2024-10-26 14:24 | XMS_ITS | Clinical Summary ---
Author Organization [employer] [facility] tem Address [id number] [address] [place] [address] Care Team Providers Care Generator Assembler Name Role Phone Unavailable Primary Care Provider Unavailabl e Allergies No known active allergies Medications [id number] ic acid ( 19) 29 mg iron- [...] Team Description 10/24/2024 Documentation Maternal- Medicine at [place] [address] [place] [address] Yesi Meade, DEBBIE-LYNDSAYM 10/24/2024 Orders Only Maternal- Medicine at [address] [address] Ref Prov, Not In System 10/23/2024 8:30 AM EDT Office Visit Maternal- Medicine at [place] [address] [place] [address] Vy Pemberton MD 36 weeks gestation of (Primary Dx); Gestational diabetes requiring insulin; Pre-eclampsia in third trimester; Non-sustained ventricular tachycardia ([facility]) 10/23/2024 Travel 10/17/2024 Telephone Maternal- Medicine at [place] [place] [address] Nereyda Bishop LD 10/11/2024 2:00 PM EDT Office Visit Maternal- Medicine at [place] [place] [address] Siria Rebolledo, LATHE MACHINE OPERATOR-FNP Insulin controlled gestational diabetes mellitus (GDM) in third trimester (Primary Dx) 10/11/2024 Travel 10/04/2024 Telephone Maternal- Medicine at [place] [place] [address] Aranza Beltran, ARIC 09/20/2024 11:00 AM EDT Telemedicine Maternal- Medicine at [place] [place] [address] Siria Rebolledo, LATHE MACHINE OPERATOR-FNP Insulin controlled gestational diabetes mellitus (GDM) in third trimester (Primary Dx); Gestational diabetes requiring insulin 09/20/2024 Travel 09/18/2024 Orders Only Maternal- Medicine at [facility] [address] [place] [address] Corby Rose, INDEPENDENT AGENT MUSIC EDUCATION Gestational diabetes requiring insulin; Elevated blood pressure affecting , antepartum; Insulin controlled gestational diabetes mellitus (GDM) in third trimester; Abnormal liver enzymes 09/14/2024 Orders Only Maternal- Medicine at [facility] [address] [place] [address] Torrie Posada RN 09/12/2024 10:00 AM EDT Office Visit Maternal- Medicine at [facility] [address] [place] [address] Ruthann Miller PA-C Insulin controlled gestational diabetes mellitus (GDM) in third trimester; Abnormal liver enzymes; Abnormal genetic test; Gestational diabetes requiring insulin; Elevated blood pressure affecting , antepartum 09/12/2024 Documentation Maternal- Medicine at [facility] [address] [place] [address] Ruthann Miller PA-C 09/12/2024 Travel 09/06/2024 Orders Only Maternal- Medicine at [facility] [address] [place] [address] Yesi Meade APRN-LYNDSAYM 09/05/2024 Telephone Maternal- Medicine at [facility] [address] [place] [address] Aranza Beltran, ARIC 09/05/2024 Orders Only Maternal- Medicine at [facility] [address] [place] [address] Jackson Cruz MD 08/31/2024 1:30 PM EDT Support Visit Maternal- Medicine at [facility] [address] [place] [address] Cristiana Zuñiga RN Nereyda Bishop LD Gestational diabetes mellitus (GDM) in third trimester, gestational diabetes method of control unspecified (Primary Dx) 08/31/2024 Travel 08/30/2024 Orders Only Maternal- Medicine at [facility] [address] [place] [address] Ref Prov, Not In System 08/30/2024 Abstract Maternal- Medicine at [facility] [address] [place] [address] External, Scanning Provider from Last 3 Months [...] ORDERABLES Final Resu lt Performing Organization Address [facility] de Phone Number MANUALLY TRANSCRIBED RESULTS * CBC without diff (09/12/2024) CBC, Platelet Ct, and Diff see scanned report MANUALLY TRANSCRIBED RESULTS Blood Venous blood / Unknown 09/12/2024 Ruthann THAYER-Arlin LAB BLOOD ORDERABLES Final Result Performing Organization Address [facility] de Phone Number MANUALLY TRANSCRIBED RESULTS * Glucose random or fasting- POCT (08/31/2024) External Glucose Fasting Or Random (Fbs) 99 MANUALLY TRANSCRIBED RESULTS Blood Venous blood / Unknown 08/31/2024 Jackson Cruz MD LAB BLOOD ORDERABLES Final Re sult Performing Organization Address [facility] Co de Phone Number MANUALLY TRANSCRIBED RESULTS * Glucose 1h post 50g load (08/23/2024) Glucose, 1 hr PP 50GM dose 181 MANUALLY TRANSCRIBED RESULTS Blood Venous blood / Unknown us Not In System Ref Prov LAB BLOOD ORDERABLES Breanna l Result Performing Organization Address [facility] Co de Phone Number MANUALLY TRANSCRIBED RESULTS from Last 3 Months Insurance [employer] Member Subscriber Plan / Payer (Ef fective 2024-Present) Name:Lissa Rivas Relation to Subscriber:Spouse Name:Brenton Rivas Date of :1993 Address: [address] [place] [id number] Payer ID:Not on file Type:Not on file Address: [facility] [address] [place] [id number]
--- OUTSIDE RECORDS SUMMARY | 2024-10-26 14:24 | XMS_ITS | Encounter Summary ---
Author Organization [facility] tem Address [id number] [address] [place] [address] Care Team Providers Care Tire Duster Name Role Phone Unavailable Primary Care Provider Unavailabl e Encounter Details Date Type Department Care Team (Late st Contact Info) Description 10/17/2024 Telephone Maternal- Medicine at [facility] [address] [place] [address] Nereyda Bishop LD [address] [place] [address] Social History Tobacco Use Types Packs/Day Years [...]
[2024-10-26 15:15] LABS: Total Protein Urine Random 14.1 mg/dL (<=11.9)
[2024-10-26 15:16] LABS: Total Volume 24 Hour Urine 3525 mL/24hr
== END 2024-10-26 14:20 | disposition home or self-care (01) ==
LOC: LAB 14:19
PROVIDERS: PCP Internal Medicine; Visit Provider Obstetrics & Gynecology
DX: O13.3 Gestational [pregnancy-induced] hypertension without significant proteinuria, third trimester (principal); Z3A.36 36 weeks gestation of pregnancy
CPT/HCPCS: 84156

== ENCOUNTER 2024-10-27 09:06 | Outpatient (OUT) | payer OTHER, SELFPAY ==
[2024-10-27 09:13] VITALS: BP 138/92; PULSE 83
--- OUTSIDE RECORDS SUMMARY | 2024-10-27 09:30 | XMS_ITS | CCD ---
Author Organization [facility] ion [facility] Care Team Providers Care Social Sciences Department Chair Name Role Phone LITO VELAZQUEZ Admitting Unavailable LITO VELAZQUEZ Attending Unavailable Josefina Kay Unavailable Robles Goldsmith DO Unavailable FEDE HAIRSTON Referring Unav Lito Durate MD Primary Care Provider JAILENE HOWARD Referring Unavailable FEDE HAIRSTON Referring Unav ailable FEDE HAIRSTON Referring Unav Lito Duarte MD Primary Care Provider RUBY CANO Attending Unavailable LITO VELAZQUEZ Primary Care Unavailable GABRIEL BLACKWELL Attending Unavailable LITO VELAZQUEZ Primary Care Unavailable Josefina Harris RN Unavailable Lito Velazquez MD Primary Care Provider [phone] Jaime Davies RN Attending Provider Unavailable Primary [...] Referring Unavailable TANTIBHEDHYANGKAMARA, FEDE Attending Unav ailable ORTEGA MORRISSEY Referring Unavailable VANESSA VO Attending Unavailable YUNI, ORTEGA Referring Unavailable МАРИЯ LABOY Attending Unavailable Samson CORBETT, Jaime Ribeiro Other Provider [phone] Toña MUKHERJEE, Iveth Attending Provider Manjula MUKHERJEE, Jassi Perez Attending Provider Gonzalo MUKHERJEE, Kurt Attending Provider Marcus MUKHERJEE, Lito Referring Provider NEREYDA ZHENG Attending Unavailable ZITA, SARAVANAN R Referring Unavailable DEEPIKA, RUTHANN Gerber Attending Unavailable ZITA, SARAVANAN R Referring Unavailable KESHA, ALTON Attending Unavailable ZITA, SARAVANAN R Referring Unavailable KESHA, ALTON Attending Unavailable ZITA, SARAVANAN R Referring Unavailable VY CORONA Attending Unavailable ZITA, SARAVANAN R Referring Unavailable Lito Vleazquez Primary Care Unavailable Gonzalo, Kurt Admitting Unavailable Gonzalo, Kurt Attending Unavailable Lito Velazquez Primary Care Unavailable Gonzalo, Kurt Admitting Unavailable Gonzalo, Kurt Attending Unavailable Jaime Davies Admitting Unavailable Samson, Jaime Ribeiro Attending Unavailable Lito Velazquez Primary Care Unavailable ZITA, SARAVANAN Attending Unavailable ANDREW FERRER Attending Unavailable ZITA, SARAVANAN Attending Unavailable ZITA, SARAVANAN Referring Unavailable ZITA, SARAVANAN Attending Unavailable LITO VELAZQUEZ Attending Unavailable RUPAL PATEL Attending Unavailable ZITA, SARAVANAN Attending Unavailable ZITA, SARAVANAN Referring Unavailable ZITA, SARAVANAN Attending Unavailable ZITA, SARAVANAN Attending Unavailable ZITA, SARAVANAN Attending Unavailable ZITA, SARAVANAN Attending Unavailable ZITA, SARAVANAN Attending Unavailable ZITA, SARAVANAN Attending Unavailable LITO VELAZQUEZ Referring Unavailable ROBLES GOLDSMITH Attending Unavailable Medications Current Medications Medication Drug Class(es) Dates Sig (Normalized) Sig (Original) acyclovir 400 mg oral tablet (20 sources) Herpesvirus Nucleoside [...] bedtime. 60 tablet 11 10/02/2024 11/01/2024 Active [id number] 200 actuat albuterol 0.09 mg/actuat metered dose [...] antepartum, gestational diabetes method of control unspecified ([facility]) , Elevated glucose tolerance test 1 [...] Active blood-glucose sensor (DEXCOM G7 SENSOR) device (8 sources) Start: 09-12-2024 blood-glucose sensor (DEXCOM G7 [...] m orning cholecalciferol (Vitamin D-3) 50 MCG (2000 UT) tablet Take 2 tablets by mouth in the morning. Active ferrous sulfate 325 mg oral tablet (2 sources) take 1 tablet by mouth once daily at breakfast ferrous sulfate 325 (65 FE) MG tablet Take 1 tablet (325 mg total) by mouth daily with breakfast. Active 3 ml insulin glargine 100 unt/ml pen injector (20 sources) Insulin Analog Start: 10-23-2024 insulin glargine (LANTUS SOLOSTAR U-100 INSULIN) 100 unit/mL (3 mL) insulin pen Indications: Gestational diabetes requiring insulin Inject 17 units every evening. Prime with 2 units. 15 mL 2 10/23/2024 Active Start: 10-17-2024 Start: 09-20-2024 End: 10-23-2024 insulin glargine (LANTUS CODY OSTAR U-100 INSULIN) 100 unit/mL (3 mL) insulin pen Indications: Gestational diabetes requiring insulin Inject 16 units every evening. Prime with 2 units. 15 mL 2 09/20/2024 10/23/2024 Discontinued Start: 09-12-2024 End: 09-20-2024 Lantus SoloStar 100 UNIT/ML pen Inject 12 units every evening. Prime with 2 units. 09/12/2024 Active isopropyl alcohol 0.7 ml/ml medicated pad (20 sources) Start: 08-25-2024 Alcohol Swabs (Alcohol Prep Pad) 70 % pads Indications: Gestational diabetes mellitus (GDM), antepartum, gestational diabetes method of control unspecified ([facility]) , Elevated glucose tolerance test [...] polysaccharide iron complex 391 mg oral capsule (7 sources) Start: 10-17-19 End: 11-16-19 take 1 capsule by mouth once daily iron polysaccharides (ProFe) 391.3 (180 Fe) MG capsule Indications: Anemia, unspecified type Take 1 capsule (391.3 mg) by mouth Daily 30 capsule 6 10/16/2024 11/15/2024 Active MV-Min-Fe Fum-FA-DHA ( 1 PO) (20 sources) MV-Min- Fe Fum-FA-DHA ( 1 PO) Take by mouth Active mo058-ymti-viibz acid ( 19) 29 mg iron- 1 mg tablet,chewable (14 sources) [id number]-tifq-cflkd acid ( 19) 29 mg iron- 1 mg tablet,chewable Chew 1 tablet and swallow in the morning. Active propranolol hydrochloride 40 mg oral tablet (6 sources) beta-Adrenergic Tamiko Start: 10-19-19 take 1 tablet by mouth twice daily Start: 10-18-2024 End: 10-18-2024 Propranolol 40 mg tablet Dis continued 20 MG PO Twice daily 30 October 18, 2024 12:00am October 18, 2024 [...] 12:00am October 17, 2024 9:50am chorionic gonadotropin 13993 unt/ml injectable solution (13 sources) Gonadotropin Start: 02-17-2024 End: 03-17-2024 inject 03857 [IU] by subcutaneous injection once chorionic gonadotropin [...] day 3-7 Take 2 tablets by mo [facility] once daily. Take day 3-7 of her [...] Translations: [Unspecified asthma, uncomplicated] Chronic Cardiac dysrhythmias (8 sources) Nonsustained ventricular tachycardia ; Translations: [Nonsustained ventricular tachycardia] Onset: 5 10-18-2024 Chronic Cardiac dysrhythmias (12 sources) Palpitations; [...] Hypertension complicating ; childbirth and the puerperium (11 sources) Hypertension complicating ; Translations: [Unspecified maternal hypertension, unspecified trimester] Onset: 5 09-12-2024 Chronic Hypertension complicating ; childbirth and the puerperium (7 sources) -induced hypertension; Translations: [Gestational [-induced] hypertension without significant proteinuria, unspecified trimester] Onset: 5 10-16-2024 Episodic Inflammatory diseases of female pelvic [...] Onset: 4 07-13-2023 Chronic Other liver diseases (10 sources) Liver enzymes abnormal; Translations: [Abnormal levels [...] of ] 10-16-2024 Episodic Residual codes; unclassified (3 sources) Gestation period, 36 weeks; Translations: [36 weeks gestation of ] 10-23-2024 Episodic Residual codes; unclassified (1 source) 35 weeks gestation of ; Translations: [35 weeks gestation of ] Onset: Episodic Superficial injury; contusion (4 sources) Contusion of left knee; Translations: [Contusion of left knee, initial encounter] 06-25-2019 Episodic Unclassified (20 sources) OB Reminders Onset: 04-30-2024 Unclassified (2 sources) 35 weeks gestation with first . Primary concern is keeping baby and mom safe as she moves toward induction which is scheduled for October 30. 10-18-2024 Unclassified (1 source) Elevated Glucose Tolerance Test Onset: Unclassified (1 source) Supraventricular tachycardia, unspecified; Translations: [Supraventricular tachycardia, unspecified] Onset: Urinary tract infections (1 source) Urinary [...] Test Name Value Interpretation Reference Range Facility TBH TOTAL PROTEIN 24 HOUR UR INEon 10-26-2024 Interpretation and review of laboratory results Abnormal [facility] Protein (U) [Mass/Vol] 14.1 mg/dL High NINF - 11.9 mg/dL [facility] TB TOTAL PROTEIN 24 HOUR URINE 497 High NINF [facility] TOTAL VOLUME 24 HOUR URINE 3525 mL/24hr [facility] ALL CBC WITH AUTO DIFFon BASOPHILS ABSOLUTE AUTO 0 N [facility] Basophils/100 WBC (Bld) 0.3 % 0.2 - 2.0 % [facility] Eosinophils/100 WBC (Bld) 1.2 % 0.9 - 7.0 % [facility] Erythrocyte distribution width (RBC) [Ratio] 13 % 11.0 - 15.0 % [facility] Hematocrit (Bld) [Volume fraction] 28.9 % Low 36.0 - 48.0 % [facility] Hemoglobin (Bld) [Mass/Vol] 9.8 g/dL Low 12.0 - 16.0 g/dL [facility] IMMATURE GRANULOCYTES ABS AUTO 0.08 High [facility] Immature granulocytes/100 WBC (Bld) 0.9 % High 0.0 - 0.5 % [facility] Interpretation and review of laboratory results Abnormal [facility] LYMPHOCYTES ABSOLUTE AUTO 1.7 [facility] Lymphocytes/100 WBC (Bld) 17.6 % Low 20.5 - 60.0 % [facility] MCH (RBC) [Entitic mass] 30.2 pg 26. 7 - 34.0 pg [facility] MCHC (RBC) [Mass/Vol] 33.9 g/dL 29.9 - 35.2 g/dL [facility] MCV (RBC) [Entitic vol] 89.2 fL 81.0 - 99.0 fL [facility] MONOCYTES ABSOLUTE AUTO 0.8 N [facility] Monocytes/100 WBC (Bld) 8 % 1.7 - 12.0 % [facility] NEUTROPHILS ABSOLUTE AUTO 6.7 High [facility] Neutrophils/100 WBC (Bld) 72 % 43.0 - 75.0 % [facility] Platelet mean volume (Bld) [Entitic vol] 10.6 fL 9.5 - 13.5 fL [facility] TBH EO # 0.1 [facility] TBH PLT 231 [facility] TB RBC 3.24 Low [facility] TBH WBC 9.4 [facility] US OB BPP W NON-STRESS on 10-24-2024 The [place] [id number] Ultrasound Report Signed Patient: LISSA RIVAS MR#: [id number] : 1995 Acct:[id number] Age/Sex: 29 / F ADM Date: 10/24/24 Loc: US Attending Dr: Saravanan Ahumada D.O. Ordering Physician: Saravanan Ahumada D.O. Date of Service: 10/24/24 Procedure(s): US OB BPP w non-stress Accession Number(s): [id number] cc: Saravanan Ahumada D.O.; LITO VELAZQUEZ [place] [id number] Patient Name: LISSA RIVAS MRN: [facility]:[id number] date: 1995 Sex: F Assigned Patient Location: [facility] Current Patient Location: Accession/Order Number: [id number] Exam Date: 10/24/2024 22:00 Report Date: 10/24/2024 [...] Levine M.D. 10/24/2024 10:02 PM Dictation Location: [place] [address] Electronically authenticated by: [id number] Y Date: 10/24/2024 22:02 Dictated By: Jose Levine M.D. Signed By: 10/24/242204 DD/ 01 TD/TT: Aircraft Load Controller: [facility] Radiology, Radiologist, - 10/24/2024 The [place] [id number] Ultrasound Report Signed Patient: LISSA RIVAS MR#: [id number] : 1995 Acct:[id number] Age/Sex: 29 / F ADM Date: 10/24/24 Loc: US Attending Dr: Saravanan Ahumada D.O. Ordering Physician: Saravanan Ahumada D.O. Date of Service: 10/24/24 Procedure(s): US OB BPP w non-stress Accession Number(s): [id number] cc: Saravanan Ahumada D.O.; LITO VELAZQUEZ [place] [address] Patient Name: LISSA RIVAS MRN: [facility]:[id number] date: 1995 Sex: F Assigned Patient Location: [facility] Current Patient Location: Accession/Order Number: [id number] Exam Date: 10/24/2024 22:00 Report Date: 10/24/2024 [...] Levine M.D. 10/24/2024 10:02 PM Dictation Location: [place] [address] Electronically authenticated by: [id number] Y Date: 10/24/2024 22:02 Dictated By: Jose Levine M.D. Signed By: 10/24/242204 DD/ 01 TD/TT: Aircraft Load Controller: [facility] Radiology Study observation (narrative) [facility] US OB BPP W NON-STRESS Ordered By: Radiologist Radiology on 10-24-2024 [facility] Work Phone: Urinalysis macro (dipstick) panel (U)on 10-23-2024 Bilirubin, UA Negative Negative - 4(70) +++ mg/dL [facility] Blood, UA Negative Negative - 50 Jorge Luis/mcL [facility] Clarity, UA Clear [facility] Color, UA Yellow [facility] Glucose, UA Negative Negative - 1999(110) ++++ mg/dL [facility] Interpretation and review of laboratory results Normal [facility] Ketones, UA Negative Negative - 160(16) ++++ mg/dL [facility] Leukocytes, UA Negative Negative - 500+++ Flori/mcL [facility] Nitrite, UA Negative Negative - Positive [facility] pH, UA 7 5 - 9 [facility] Protein, UA Negative Negative - 1999(20) ++++ mg/dL [facility] Spec Grav, UA 1.015 1 - 1.03 [facility] Urobilinogen, UA 0.2 0.2 - 12 mg/dL [facility] echo transthoracicon [facility] echo transthoracic [facility] [place] [address] Echocardiogram Signed Patient: Lissa Rivas MR#: [id number] : 1995 Acct:[id number] Age/Sex: 29 / F ADM Date: 10/18/24 Loc: Room: Type: [facility] Attending Dr: Kurt Sánchez MD Ordering Provider: Kurt Sánchez MD Date of Service: 10/18/24 [facility] echo transthoracic: I47.10 - Supraventricular tachycardia, unspecified Copies to: MD Kurt Donaldson MD Weight: 227 lb Performed By: Marsha Ventura [facility] BSA: 2.0 m2 Reason For Study: I47.10 [...] cm Transcribed By: SCV Performed At: 10/18/24 0660 Signed By: Tacos King MD 10/18/24 6073 [facility] ECG *CARDIOLOGY ONLY*on 10-18-2024 [facility] *CARDIOLOGY ONLY* [facility] [place] [address] Electrocardiograph Report Signed Patient: Lissa Rivas MR#: Elisa [id number] : 1995 Acct:[id number] Age/Sex: 29 / F ADM Date: 10/18/24 Loc: [facility] Room: Type: [facility] Attending Dr: Kurt Sánchez MD Ordering Provider: Kurt Sánchez MD Date of Service: 10/18/24 ECG/FPG ECG *CARDIOLOGY ONLY*: R94.31 - Abnormal electrocardiogram [ECG] [EKG] Copies to: Test Reason : Blood Pressure : */* mmHG Vent. Rate : 107 BPM Atrial Rate : 107 BPM P-R Int : 126 ms QRS Dur : 74 ms QT Int : 350 ms P-R-T Axes : 57 57 12 degrees QTcB Int : 467 ms Sinus tachycardia Otherwise normal ECG Confirmed by Iveth Ding ([id number]) on 10/23/2024 12:58:16 PM Referred By: Electronically Signed By: Iveth Ding Transcribed By: MUS Signed By Iveth Ding MD 5 1258 Normal [facility] US OB BPP W NON-STRESS on 10-17-2024 [place] [address] Ultrasound Report Signed Patient: LISSA RIVAS MR#: [id number] : 1995 Acct:[id number] Age/Sex: 29 / F ADM Date: 10/17/24 Loc: [facility] 251-[address]: Saravanan Ahumada D.O. Ordering Physician: Saravanan Ahumada D.O. Date of Service: 10/17/24 Procedure(s): US OB BPP w non-stress Accession Number(s): [id number] cc: Saravanan Ahumada D.O.; LITO VELAZQUEZ [place] [id number] Patient Name: LISSA RIVAS MRN: [facility]:[id number] date: 1995 Sex: F Assigned Patient Location: [facility] Current Patient Location: [facility] Accession/Order Number: [id number] Exam Date: 10/17/2024 16:58 Report Date: 10/17/2024 [...] Barrett M.D. 10/17/2024 4:59 PM Dictation Location: [place] [address] Electronically authenticated by: [id number] Y Date: 10/17/2024 16:59 Dictated By: Kevin Barrett D.O. Signed By: 10/17/24 1702 DD/ 1659 TD/TT: Aircraft Load Controller: [facility] Radiology, Radiologist, MD - 10/17/2024 [place] [address] Ultrasound Report Signed Patient: LISSA RIVAS MR#: [id number] : 1995 Acct:[id number] Age/Sex: 29 / F ADM Date: 10/17/24 Loc: [facility] 251-[address]: Saravanan Ahumada D.O. Ordering Physician: Saravanan Ahumada D.O. Date of Service: 10/17/24 Procedure(s): US OB BPP w non-stress Accession Number(s): [id number] cc: Saravanan Ahumada D.O.; LITO VELAZQUEZ [address] [address] Patient Name: LISSA RIVAS MRN: [facility]:[id number] date: 1995 Sex: F Assigned Patient Location: [facility] Current Patient Location: [facility] Accession/Order Number: [id number] Exam Date: 10/17/2024 16:58 Report Date: 10/17/2024 [...] Barrett M.D. 10/17/2024 4:59 PM Dictation Location: [employer] Electronically authenticated by: [id number] Y Date: 10/17/2024 16:59 Dictated By: Kevin Barrett D.O. Signed By: 10/17/24 1702 DD/ 165 TD/TT: Aircraft Load Controller: [facility] Radiology Study observation (narrative) [facility] US OB BPP W NON-STRESS Ordered By: Radiologist Radiology on 10-17-2024 [facility] Work Phone: ALL CBC WITH AUTO DIFFon BASOPHILS ABSOLUTE AUTO 0 N [facility] Basophils/100 WBC (Bld) 0.2 % 0.2 - 2.0 % [facility] Eosinophils/100 WBC (Bld) 1.4 % 0.9 - 7.0 % [facility] Erythrocyte distribution width (RBC) [Ratio] 13.1 % 11.0 - 15.0 % [facility] Hematocrit (Bld) [Volume fraction] 30 % Low 36.0 - 48.0 % [facility] Hemoglobin (Bld) [Mass/Vol] 10 g/dL Low 12.0 - 16.0 g/dL [facility] IMMATURE GRANULOCYTES ABS AUTO 0.08 High [facility] Immature granulocytes/100 WBC (Bld) 0.8 % High 0.0 - 0.5 % [facility] Interpretation and review of laboratory results Abnormal [facility] LYMPHOCYTES ABSOLUTE AUTO 1.9 [facility] Lymphocytes/100 WBC (Bld) 20.3 % Low 20.5 - 60.0 % [facility] MCH (RBC) [Entitic mass] 30.2 pg 26. 7 - 34.0 pg [facility] MCHC (RBC) [Mass/Vol] 33.3 g/dL 29.9 - 35.2 g/dL [facility] MCV (RBC) [Entitic vol] 90.6 fL 81.0 - 99.0 fL [facility] MONOCYTES ABSOLUTE AUTO 0.8 N [facility] Monocytes/100 WBC (Bld) 7.9 % 1.7 - 12.0 % [facility] NEUTROPHILS ABSOLUTE AUTO 6.6 High [facility] Neutrophils/100 WBC (Bld) 69.4 % 43.0 - 75.0 % [facility] Platelet mean volume (Bld) [Entitic vol] 10.4 fL 9.5 - 13.5 fL [facility] TBH EO # 0.1 [facility] TBH PLT 215 [facility] RBC 3.31 Low [facility] WBC 9.6 [facility] Urinalysis macro (dipstick) panel (U)on 10-16-2024 Bilirubin, UA Negative Negative - 4(70) +++ mg/dL [facility] Blood, UA Negative Negative - 50 Jorge Luis/mcL [facility] Clarity, UA Clear [facility] Color, UA Yellow [facility] Glucose, UA Negative Negative - 1999(110) ++++ mg/dL [facility] Interpretation and review of laboratory results Abnormal [facility] Ketones, UA Negative Negative - 160(16) ++++ mg/dL [facility] Leukocytes, UA Negative Negative - 500+++ Flori/mcL [facility] Nitrite, UA Negative Negative - Positive [facility] pH, UA 7 5 - 9 [facility] Protein, UA Trace Negative - 2000(20) ++++ mg/dL [facility] Spec Grav, UA 1.015 1 - 1.03 [facility] Urobilinogen, UA 1.0 0.2 - 12 mg/dL [facility] US OB BPP W NON-STRESS on 10-11-[address] [address] Ultrasound Report Signed Patient: LISSA RIVAS MR#: [id number] : 1995 Acct:[id number] Age/Sex: 29 / F ADM Date: 10/10/24 Loc: US Attending Dr: Saravanan Ahumada D.O. Ordering Physician: Saravanan Ahumada D.O. Date of Service: 10/10/24 Procedure(s): US OB BPP w non-stress Accession Number(s): [id number] cc: Saravanan Ahumada D.O.; LITO VELAZQUEZ [place] [id number] Patient Name: LISSA RIVAS MRN: [facility]:[id number] date: 1995 Sex: F Assigned Patient Location: Current Patient Location: Accession/Order Number: [id number] Exam Date: 10/11/2024 08:41 Report Date: 10/11/2024 [...] Gage M.D. 10/11/2024 8:42 AM Dictation Location: [place] [address] Electronically authenticated by: [id number] Y Date: 10/11/2024 08:42 Dictated By: Paula Gage M.D. Signed By: 10/11/24 0845 DD/ 0842 TD/TT: Aircraft Load Controller: [facility] Radiology, Radiologist, MD - 10/11/2024 [place] [address] Ultrasound Report Signed Patient: LISSA RIVAS MR#: [id number] : 1995 Acct:[id number] Age/Sex: 29 / F ADM Date: 10/10/24 Loc: US Attending Dr: Saravanan Ahumada D.O. Ordering Physician: Saravanan Ahumada D.O. Date of Service: 10/10/24 Procedure(s): US OB BPP w non-stress Accession Number(s): [id number] cc: Saravanan Ahumada D.O.; LITO VELAZQUEZ [place] [id number] Patient Name: LISSA RIVAS MRN: [id number] date: 1995 Sex: F Assigned Patient Location: US Current Patient Location: Accession/Order Number: [id number] Exam Date: 10/11/2024 08:41 Report Date: 10/11/2024 [...] Gage M.D. 10/11/2024 8:42 AM Dictation Location: [place] [address] Electronically authenticated by: [id number] Y Date: 10/11/2024 08:42 Dictated By: Paula Gage M.D. Signed By: 10/11/2445 DD/ 1 TD/TT: Aircraft Load Controller: [facility] Radiology Study observation (narrative) [facility] US OB BPP W NON-STRESS Ordered By: Radiologist Radiology on 10-11-2024 [facility] Work Phone: Urinalysis macro (dipstick) panel (U)on 10-09-2024 Bilirubin, UA Negative Negative - 4(70) +++ mg/dL [facility] Blood, UA Negative Negative - 50 Jorge Luis/mcL [facility] Clarity, UA Clear [facility] Color, UA Yellow [facility] Glucose, UA Negative Negative - 2000(110) ++++ mg/dL [facility] Interpretation and review of laboratory results Abnormal [facility] Ketones, UA Negative Negative - 160(16) ++++ mg/dL [facility] Leukocytes, UA Moderate Negative - 500+++ Flori/mcL [facility] Nitrite, UA Negative Negative - Positive [facility] pH, UA 7.5 5 - 9 [facility] Protein, UA Negative Negative - 2000(20) ++++ mg/dL [facility] Spec Grav, UA 1.01 1 - 1.03 [facility] Urobilinogen, UA 0.2 0.2 - 12 mg/dL [facility] US OB BPP W NON-STRESS on 10-04-2024 [place] [address] Ultrasound Report Signed Patient: LISSA RIVAS MR#: [id number] : 1995 Acct:[id number] Age/Sex: 29 / F ADM Date: 10/03/24 Loc: US Attending Dr: Saravanan Ahumada D.O. Ordering Physician: Saravanan Ahumada D.O. Date of Service: 10/03/24 Procedure(s): US OB BPP w non-stress Accession Number(s): [id number] cc: Saravanan Ahumada D.O.; HILL,LITO [place] [id number] Patient Name: LISSA RIVAS MRN: [facility]:[id number] date: 1995 Sex: F Assigned Patient Location: Current Patient Location: Accession/Order Number: [id number] Exam Date: 10/04/2024 07:11 Report Date: 10/04/2024 [...] Gage M.D. 10/04/2024 7:13 AM Dictation Location: [place] [address] Electronically authenticated by: [id number] Y Date: 10/04/2024 07:13 Dictated By: Paula Gage M.D. Signed By: 10/04/24 0716 DD/ 2 TD/TT: Aircraft Load Controller: [facility] Radiology, Radiologist, - 10/04/2024 [place] [address] Ultrasound Report Signed Patient: LISSA RIVAS MR#: [id number] : 1995 Acct:[id number] Age/Sex: 29 / F ADM Date: 10/03/24 Loc: US Attending Dr: Saravanan Ahumada D.O. Ordering Physician: Saravanan Ahumada D.O. Date of Service: 10/03/24 Procedure(s): US OB BPP w non-stress Accession Number(s): [id number] cc: Saravanan Ahumada D.O.; LITO VELAZQUEZ [place] [id number] Patient Name: LISSA RIVAS MRN: [facility]:[id number] date: 1995 Sex: F Assigned Patient Location: US Current Patient Location: Accession/Order Number: [id number] Exam Date: 10/04/2024 07:11 Report Date: 10/04/2024 [...] Gage M.D. 10/04/2024 7:13 AM Dictation Location: [place] [address] Electronically authenticated by: [id number] Y Date: 10/04/2024 07:13 Dictated By: Paula Gage M.D. Signed By: 10/04/24715 DD/ 2 TD/TT: Aircraft Load Controller: [facility] Radiology Study observation (narrative) [facility] US OB BPP W NON-STRESS Ordered By: Radiologist Radiology on 10-04-2024 [facility] Work Phone: US OB FOLLOW UP TRANSABDOMIN [...] UA Negative Negative - 4(70) +++ mg/dL [facility] [place] Blood, UA Negative Negative - 50 Jorge Luis/mcL [facility] Clarity, UA Clear [facility] Color, UA Yellow [facility] Glucose, UA Negative Negative - 2000(110) ++++ mg/dL [facility] Interpretation and review of laboratory results Abnormal [facility] Ketones, UA Negative Negative - 160(16) ++++ mg/dL [facility] Leukocytes, UA Negative Negative - 500+++ Flori/mcL [facility] Nitrite, UA Negative Negative - Positive [facility] pH, UA 7 5 - 9 [facility] Protein, UA Trace Negative - 2000(20) ++++ mg/dL [facility] Spec Grav, UA 1.01 1 - 1.03 [facility] Urobilinogen, UA 0.2 0.2 - 12 mg/dL [facility] US OB BPP W NON-STRESS on 09-27-2024 [place] [address] Ultrasound Report Signed Patient: LISSA RIVAS MR#: [id number] : 1995 Acct:[id number] Age/Sex: 29 / F ADM Date: 09/27/24 Loc: [facility] 250-[address]: Saravanan Ahumada D.O. Ordering Physician: Saravanan Ahumada D.O. Date of Service: 09/27/24 Procedure(s): US OB BPP w non-stress Accession Number(s): [id number] cc: Saravanan Ahumada D.O.; LITO VELAZQUEZ [place] [address] Patient Name: LISSA RIVAS MRN: [facility]:[id number] date: 1995 Sex: F Assigned Patient Location: [facility] Current Patient Location: [facility] Accession/Order Number: [id number] Exam Date: 09/27/2024 17:07 Report Date: 09/27/2024 17:08 At the request of: SARAVANAN AHUMADA DO Procedure: US OB BPP w non-stress Biophysical profile. Reason for exam: Gestational diabetes. COMPARISON: None. TECHNIQUE: Transabdominal imaging of the gravid uterus was obtained. FINDINGS: The ladle liner helper reports the biophysical profile of 8 out of 8. RAKESH is normal at 18.6 cm. heart rate 145 bpm. US/US OB BPP w non-stress IMPRESSION: BPP 8 out of 8. Impression dictated by: Navjot Harmon Jr., D.O. 09/27/2024 5:08 PM Dictation Location: [place] [address] Electronically authenticated by: [id number] Y Date: 09/27/2024 17:08 Dictated By: Navjot Harmon M.D. Signed By: 09/27/24 171 DD/ 07 TD/TT: Aircraft Load Controller: [facility] Radiology, Radiologist, - 09/27/2024 [place] [address] Ultrasound Report Signed Patient: LISSA RIVAS MR#: [id number] : 1995 Acct:[id number] Age/Sex: 29 / F ADM Date: 09/27/24 Loc: [facility] 250-[address]: Saravanan Ahumada D.O. Ordering Physician: Saravanan Ahumada D.O. Date of Service: 09/27/24 Procedure(s): US OB BPP w non-stress Accession Number(s): [id number] cc: Saravanan Ahumada D.O.; LITO VELAZQUEZ [place] [address] Patient Name: LISSA RIVAS MRN: [facility]:[id number] date: 1995 Sex: F Assigned Patient Location: [facility] Current Patient Location: [facility] Accession/Order Number: [id number] Exam Date: 09/27/2024 17:07 Report Date: 09/27/2024 17:08 At the request of: SARAVANAN AHUMADA DO Procedure: US OB BPP w non-stress Biophysical profile. Reason for exam: Gestational diabetes. COMPARISON: None. TECHNIQUE: Transabdominal imaging of the gravid uterus was obtained. FINDINGS: The ladle liner helper reports the biophysical profile of 8 out of 8. RAKESH is normal at 18.6 cm. heart rate 145 bpm. US/US OB BPP w non-stress IMPRESSION: BPP 8 out of 8. Impression dictated by: Navjot Harmon Jr., D.O. 09/27/2024 5:08 PM Dictation Location: [place] [address] Electronically authenticated by: [id number] Y Date: 09/27/2024 17:08 Dictated By: Navjot Harmon M.D. Signed By: 09/27/24 1711 DD/ 170 TD/TT: Aircraft Load Controller: [facility] Radiology Study observation (narrative) [facility] US OB BPP W NON-STRESS Ordered By: Radiologist Radiology on 09-27-2024 [facility] Work Phone: Urinalysis macro (dipstick) panel (U)on 09-25-2024 Bilirubin, UA Negative Negative - 4(70) +++ mg/dL [facility] Blood, UA Negative Negative - 50 Jorge Luis/mcL [facility] Clarity, UA Clear [facility] Color, UA Yellow [facility] Glucose, UA Negative Negative - 2000(110) ++++ mg/dL [facility] Interpretation and review of laboratory results Abnormal [facility] Ketones, UA Positive Negative - 160(16) ++++ mg/dL [facility] Comment on above: 15mg/dL Leukocytes, UA Negative Negative - 500+++ Flori/mcL [facility] Nitrite, UA Negative Negative - Positive [facility] pH, UA 7 5 - 9 [facility] Protein, UA Positive Negative - 2000(20) ++++ mg/dL [facility] Comment on above: 30mg/dL Spec Grav, UA 1.02 1 - 1.03 [facility] Urobilinogen, UA 0.2 0.2 - 12 mg/dL [facility] TB TOTAL PROTEIN 24 HOUR UR INEon 09-14-2024 Interpretation and review of laboratory results Abnormal [facility] Protein (U) [Mass/Vol] 16.8 mg/dL High NINF - 11.9 mg/dL [facility] TBH TOTAL PROTEIN 24 HOUR URINE 420 High BANNERF [facility] TOTAL VOLUME 24 HOUR URINE 2500 mL/24hr [facility] Urinalysis macro (dipstick) panel (U)on 09-13-2024 Bilirubin, UA Negative Negative - 4(70) +++ mg/dL [facility] Blood, UA Negative Negative - 50 Jorge Luis/mcL [facility] Clarity, UA Clear [facility] Color, UA Yellow [facility] Glucose, UA Negative Negative - 1999(110) ++++ mg/dL [facility] Interpretation and review of laboratory results Normal [facility] Ketones, UA Negative Negative - 160(16) ++++ mg/dL [facility] Leukocytes, UA Negative Negative - 500+++ Flori/mcL [facility] Nitrite, UA Negative Negative - Positive [facility] pH, UA 7 5 - 9 [facility] Protein, UA Negative Negative - 1999(20) ++++ mg/dL [facility] Spec Grav, UA 1.02 1 - 1.03 [facility] Urobilinogen, UA 0.2 0.2 - 12 mg/dL [facility] CBC without diffon CBC, Platelet Ct, and Diff see scanned report [facility] No Panel Informationon 09-12 [facility] UA (CLEAN/CATCH) LABORER LANDSCAPE/PO RO IF IND.on 09-12-2024 BILIRUBIN URINE Negative NEGATIVE [facility] BLOOD URINE Negative NEGATIVE [facility] Clarity (U) CLEAR CLEAR [facility] Color (U) LT. YELLOW YELLOW [facility] GLUCOSE URINE UA Negative NEGATIVE mg/dL [facility] Interpretation and review of laboratory results Abnormal [facility] Ketones Ql (U) TRACE Abnormal NEGATIVE mg/dL [facility] Leukocyte esterase Test strip Ql (U) Negative NEGATIVE [facility] NITRITE URINE Negative NEGATIVE [facility] pH (U) 6.5 [pH] 5.0 - 9.0 [facility] PROTEIN URINE Negative NEG/TRACE mg/dL [facility] SPECIFIC GRAVITY URINE <=1.005 Abnormal 1.005 - 1.025 [facility] URINE MICROSCOPIC INDICATED NO [facility] UROBILINOGEN URINE 0.2 EU/dL 0.2 - 1.0 EU/dL [facility] Urine protein creatinine rat ioon 09-12-2024 Protein/Creatinine (U) [Mass ratio] see scanned report [facility] US OB FOLLOW UP TRANSABDOMIN AL APPROACHon [...] II, MD, PHD at 08-Sep-2024 10:22:30 AM [facility] Normal Not Available Comment on above: Order Comment: US OB SCAN FOR GROWTH Estimated Date of Delivery: 11/19/24 Gestational Age as of 08/30/2024: 28w3d CNOVon 09-05-2024 CNOV Office Visit (OTMNCA ) LISSA RIVAS ([id number]) 1995 F Date Time Provider Department 09/05/24 [...] Status:Closed by МАРИЯ LABOY on 09/19/24 Normal [facility] METANEPHRINES, FREE PLASMAon 09-04-2024 METANEPHRINE, PLASMA 19 pg/mL Normal 12-67 [facility] Comment on above: Order Comment: Speci men Type: BLOOD SPECIMENOrdering Facility: [facility] Address: [address] [place] [address] [address], [place] [address] Result Comment: Refe rence Ranges: Hypertensive adult > or = 18 yrs old: 12-72 pg/mL Normotensive adult > or = 18 yrs old: 12-67 pg/mL Normotensive children < 18 yrs old: 10-95 pg/mL Performed By: #### P METAN ####[facility] LABCLIA [id number] [place] [address] [place] NORMETANEPHRINE, PLASMA 56 pg/mL Normal 18-101 C [facility] Comment on above: Order Comment: Speci men Type: BLOOD SPECIMENOrdering Facility: [facility] Address: [address] [place] [address] Result Comment: Refe rence Ranges: Hypertensive adult > or = 18 yrs old: 24-145 pg/mL Normotensive adult > or = 18 yrs old: 18-101 pg/mL Normotensive children < 18 yrs old: 22-83 pg/mL Methyldopa may cause false elevation of normetanephrine levels in this assay. If patient is on methyldopa, interpret results with caution. Performed By: #### P METAN ####[facility] LABCLIA [id number] [place] [address] [place] Glucose random or fasting- P OCTon 08-31-2024 External Glucose Fasting Or Random (Fbs) 99 [facility] Ultrasound - Officeon 2024 Radiology Study observation (narrative) [facility] Radiology Study observation (narrative) [facility] ECH echo transthoracicon [facility] echo transthoracic [facility] [place] [address] Echocardiogram Signed Patient: Lissa Rivas MR#: [id number] : 1995 Acct:[id number] Age/Sex: 29 / F ADM Date: 08/24/24 Loc: Room: Type: [facility] Attending Dr: Jaime Davies RN, MSN, ANP-C Ordering Provider: JAIME DAVIES RN, MSN Date of Service: 08/24/24/ [facility] echo transthoracic: Palpitations. Murmur. Copies to: MD [...] 1239 Signed By: Iveth Ding MD 08/24/24 2851 Normal [facility] ALL CBC WITH AUTO DIFFon BASOPHILS ABSOLUTE AUTO 0 N [facility] Basophils/100 WBC (Bld) 0.3 % 0.2 - 2.0 % [facility] Eosinophils/100 WBC (Bld) 1.4 % 0.9 - 7.0 % [facility] Erythrocyte distribution width (RBC) [Ratio] 13 % 11.0 - 15.0 % [facility] Hematocrit (Bld) [Volume fraction] 32 % Low 36.0 - 48.0 % [facility] Hemoglobin (Bld) [Mass/Vol] 10.6 g/dL Low 12.0 - 16.0 g/dL [facility] IMMATURE GRANULOCYTES ABS AUTO 0.06 High [facility] Immature granulocytes/100 WBC (Bld) 0.7 % High 0.0 - 0.5 % [facility] Interpretation and review of laboratory results Abnormal [facility] LYMPHOCYTES ABSOLUTE AUTO 1.7 [facility] Lymphocytes/100 WBC (Bld) 18.8 % Low 20.5 - 60.0 % [facility] MCH (RBC) [Entitic mass] 31.6 pg 26. 7 - 34.0 pg [facility] MCHC (RBC) [Mass/Vol] 33.1 g/dL 29.9 - 35.2 g/dL [facility] MCV (RBC) [Entitic vol] 95.5 fL 81.0 - 99.0 fL [facility] MONOCYTES ABSOLUTE AUTO 0.5 [facility] Monocytes/100 WBC (Bld) 5.3 % 1.7 - 12.0 % [facility] NEUTROPHILS ABSOLUTE AUTO 6.5 [facility] Neutrophils/100 WBC (Bld) 73.5 % 43.0 - 75.0 % [facility] Platelet mean volume (Bld) [Entitic vol] 9.8 fL 9.5 - 13.5 fL [facility] EO # 0.1 [facility] PLT 211 [facility] RBC 3.35 Low [facility] WBC 8.8 [facility] Glucose 1h post 50g loadon 0 08-23-2024 Glucose, 1 hr PP 50GM dose 181 [facility] No Panel Informationon 08-23 [facility] Urinalysis macro (dipstick) panel (U)on 08-16-2024 Bilirubin, UA Negative Negative - 4(70) +++ mg/dL [facility] Blood, UA Negative Negative - 50 Jorge Luis/mcL [facility] Clarity, UA Clear [facility] Color, UA Yellow [facility] Glucose, UA Positive Negative - 2000(110) ++++ mg/dL [facility] Comment on above: 100mg/dL Interpretation and review of laboratory results Abnormal [facility] Ketones, UA Positive Negative - 160(16) ++++ mg/dL [facility] Comment on above: 15mg/dL Leukocytes, UA Negative Negative - 500+++ Flori/mcL [facility] Nitrite, UA Negative Negative - Positive [facility] pH, UA 6.5 5 - 9 [facility] Protein, UA Negative Negative - 2000(20) ++++ mg/dL [facility] Spec Grav, UA 1.02 1 - 1.03 [facility] Urobilinogen, UA 0.2 0.2 - 12 mg/dL [facility] US OB INCOMPLETE ANATOMYon 0 08-07-2024 [place] [address] Ultrasound Report Signed Patient: LISSA RIVAS MR#: [id number] : 1995 Acct:[id number] Age/Sex: 29 / F ADM Date: 08/04/24 Loc: US Attending Dr: Saravanan Ahumada D.O. Ordering Physician: Saravanan Ahumada D.O. Date of Service: 08/04/24 Procedure(s): US OB incomplete anatomy Accession Number(s): [id number] cc: Saravanan Ahumada D.O.; HILL,LITO [address] [address] Patient Name: LISSA RIVAS MRN: [facility]:[id number] date: 1995 Sex: F Assigned Patient Location: US Current Patient Location: Accession/Order Number: [id number] Exam Date: 08/07/2024 09:41 Report Date: 08/07/2024 [...] Gage M.D. 08/07/2024 9:48 AM Dictation Location: [place] [address] Electronically authenticated by: [id number] Y Date: 08/07/2024 09:48 Dictated By: Paula Gage M.D. Signed By: 08/07/2450 DD/ TD/TT: Aircraft Load Controller: [facility] Radiology, Radiologist, MD - 08/07/2024 [place] [address] Ultrasound Report Signed Patient: LISSA RIVAS MR#: [id number] : 1995 Acct:[id number] Age/Sex: 29 / F ADM Date: 08/04/24 Loc: US Attending Dr: Saravanan Ahumada D.O. Ordering Physician: Saravanan Ahumada D.O. Date of Service: 08/04/24 Procedure(s): US OB incomplete anatomy Accession Number(s): [id number] cc: Saravanan Ahumada D.O.; LITO VELAZQUEZ [address] [address] Patient Name: LISSA RIVAS MRN: [facility]:[id number] date: 1995 Sex: F Assigned Patient Location: Current Patient Location: Accession/Order Number: [id number] Exam Date: 08/07/2024 09:41 Report Date: 08/07/2024 [...] Gage M.D. 08/07/2024 9:48 AM Dictation Location: [place] [address] Electronically authenticated by: [id number] Y Date: 08/07/2024 09:48 Dictated By: Paula Gage M.D. Signed By: 08/07/24 0950 DD/ TD/TT: Aircraft Load Controller: [facility] Radiology Study observation (narrative) [facility] OB INCOMPLETE ANATOMYOrde red By: Radiologist Radiology on 08-07-2024 [facility] Work Phone: Urinalysis macro (dipstick) panel (U)on 07-17-2024 Bilirubin, UA Negative Negative - 4(70) +++ mg/dL [facility] Blood, UA Positive Negative - 50 Jorge Luis/mcL [facility] Comment on above: Trace-lysed Clarity, UA Clear [facility] Color, UA Yellow [facility] Glucose, UA Negative Negative - 2000(110) ++++ mg/dL [facility] Interpretation and review of laboratory results Abnormal [facility] Ketones, UA Negative Negative - 160(16) ++++ mg/dL [facility] Leukocytes, UA Negative Negative - 500+++ Flori/mcL [facility] Nitrite, UA Negative Negative - Positive [facility] pH, UA 7 5 - 9 [facility] Protein, UA Trace Negative - 2000(20) ++++ mg/dL [facility] Spec Grav, UA 1.02 1 - 1.03 [facility] Urobilinogen, UA 0.2 0.2 - 12 mg/dL [facility] US OB 14+ WEEKS ANATOMY SCAN on [...] II, MD, PHD at 07-Jul-2024 06:23:52 AM [facility] Normal Not Available Comment on above: Order Comment: US OB ANATOMY SINGLE W US OB CERVICAL LENGTH Estimated Date of Delivery: 11/19/24 Gestational Age as of 06/19/2024: 18w1d C. trachomatis DNA JANESSA+probe Ql (Unsp spec)on 06-19-2024 Chlamydia Dna(Pcr) Negative [facility] Gonorrhoeae Dna(Pcr) Negative [facility] US OB LIMITED 1+ FETUSESon [...] II, MD, PHD at 20-Jun-2024 09:56:32 AM [facility] Normal Not Available Comment on above: Order Comment: US OB PLACENTA W US OB TRANSVAGINAL Estimated Date of Delivery: 11/19/24 Gestational Age as of 06/19/2024: 18w1d Ultrasound - Officeon 2024 [facility] US OB CERVICAL LENGTHon 04-[address] [address] Ultrasound Report Signed Patient: EMILEE RIVAS MR#: [id number] : 1995 Acct:[id number] Age/Sex: 29 / F ADM Date: 05/23/24 Loc: US Attending Dr: Saravanan Ahumada D.O. Ordering Physician: Saravanan Ahumada D.O. Date of Service: 05/23/24 Procedure(s): US OB cervical length Accession Number(s): [id number] cc: Saravanan Ahumada D.O.; LITO VELAZQUEZ [address] [address] Patient Name: EMILEE RIVAS MRN: [facility]:[id number] date: 1995 Sex: F Assigned Patient Location: US Current Patient Location: US Accession/Order Number: [id number] Exam Date: 05/23/2024 23:10 Report Date: 05/23/2024 [...] Harmon Jr., D.O.05/23/2024 11:13 PM Dictation Location: [place] [address] Electronically authenticated by: [id number] Y Date: 05/23/2024 23:13 Dictated By: Navjot Harmon M.D. Signed By: 05/23/242314 DD/ 12 TD/TT: Aircraft Load Controller: [facility] Radiology, Radiologist, MD - 05/24/2024 [place] [address] Ultrasound Report Signed Patient: EMILEE RIVAS MR#: [id number] : 1995 Acct:[id number] Age/Sex: 29 / F ADM Date: 05/23/24 Loc: US Attending Dr: Saravanan Ahumada D.O. Ordering Physician: Saravanan Ahumada D.O. Date of Service: 05/23/24 Procedure(s): US OB cervical length Accession Number(s): [id number] cc: Saravanan Ahumada D.O.; LITO VELAZQUEZ [place] [id number] Patient Name: EMILEE RIVAS MRN: [facility]:[id number] date: 1995 Sex: F Assigned Patient Location: US Current Patient Location: US Accession/Order Number: [id number] Exam Date: 05/23/2024 23:10 Report Date: 05/23/2024 [...] Harmon Jr., D.O.05/23/2024 11:13 PM Dictation Location: [place] [address] Electronically authenticated by: [id number] Y Date: 05/23/2024 23:13 Dictated By: Navjot Harmon M.D. Signed By: 05/23/242314 DD/ 12 TD/TT: Aircraft Load Controller: [facility] Radiology Study observation (narrative) [facility] US OB CERVICAL LENGTHOrdered By: Radiologist Radiology on 05-23-2024 [facility] Work Phone: Unlisted Lab Teston 05-22-19 [facility] Urinalysis macro (dipstick) panel (U)on 05-22-2024 Bilirubin, UA Negative Negative - 4(70) +++ mg/dL [facility] Blood, UA Negative Negative - 50 Jorge Luis/mcL [facility] Clarity, UA Clear [facility] Color, UA Yellow [facility] Glucose, UA Negative Negative - 2000(110) ++++ mg/dL [facility] Interpretation and review of laboratory results Normal [facility] Ketones, UA Negative Negative - 160(16) ++++ mg/dL [facility] Leukocytes, UA Negative Negative - 500+++ Flori/mcL [facility] Nitrite, UA Negative Negative - Positive [facility] pH, UA 7 5 - 9 [facility] Protein, UA Negative Negative - 1999(20) ++++ mg/dL [facility] Spec Grav, UA 1.015 1 - 1.03 [facility] Urobilinogen, UA 0.2 0.2 - 12 mg/dL [facility] Urinalysis macro (dipstick) panel (U)on 05-15-2024 Bilirubin, UA Negative Negative - 4(70) +++ mg/dL [facility] Blood, UA Negative Negative - 50 Jorge Luis/mcL [facility] Clarity, UA Clear [facility] Color, UA Yellow [facility] Glucose, UA Negative Negative - 1999(110) ++++ mg/dL [facility] Interpretation and review of laboratory results Normal [facility] Ketones, UA Negative Negative - 160(16) ++++ mg/dL [facility] Leukocytes, UA Negative Negative - 500+++ Flori/mcL [facility] Nitrite, UA Negative Negative - Positive [facility] pH, UA 6 5 - 9 [facility] Protein, UA Negative Negative - 1999(20) ++++ mg/dL [facility] Spec Grav, UA 1.01 1 - 1.03 [facility] Urobilinogen, UA 0.2 0.2 - 12 mg/dL [facility] AFP Single Marker Scrn, Mate rnal, Serumon 04-21-2024 [facility] BOX TESTon 04-21-2024 BOX TEST SENT OUT 04/21/24 [facility] BOX1 [facility] BOX2 [facility] Drug Screen, Urineon 025 Benzodiazepines Negative [facility] Cocaine Metabolite Negative [facility] Opiates Negative [facility] Phencyclidine Negative [facility] Thc Marijuana, Urine Negative [facility] HBV surface Ag IA Qlon 04-21 Hepatitis B Surface Antigen Negative [facility] HCG ( test) Ql (U)o n 04-21-2024 Interpretation and review of laboratory results Abnormal [facility] Preg Test, Ur Positive Negative [facility] HCV Ab IA Qlon 04-21-2024 HCV Ab Ql (S) Non-Reactive [facility] HIV 1+2 Ab+HIV1 p24 Ag IA Ql on 04-21-2024 HIV 1&2 AB/AG Non-Reactive [facility] Hemoglobin A1con 04-21-2024 HbA1c (Bld) [Mass fraction] 5.4 % 4.0 - 6.0 % [facility] No Panel Informationon 04-21 [facility] Rubella IGG immune statuson 04-21-2024 Rubella immune IgG non immune [facility] T. pallidum IgG+IgM IA Ql (S )on 04-21-2024 Syphilis Non-Reactive [facility] Type and screenon 04-21-2024 Abo/Rh(D) Negative [facility] US OB TRANSVAGINALon 025 US OB TRANSVAGINAL [...] UA Negative Negative - 4(70) +++ mg/dL [facility] Blood, UA Negative Negative - 50 Jorge Luis/mcL [facility] Clarity, UA Clear [facility] Color, UA Yellow [facility] Glucose, UA Negative Negative - 1999(110) ++++ mg/dL [facility] Interpretation and review of laboratory results Normal [facility] Ketones, UA Negative Negative - 160(16) ++++ mg/dL [facility] Leukocytes, UA Negative Negative - 500+++ Flori/mcL [facility] Nitrite, UA Negative Negative - Positive [facility] pH, UA 7 5 - 9 [facility] Protein, UA Negative Negative - 1999(20) ++++ mg/dL [facility] Spec Grav, UA 1.02 1 - 1.03 [facility] Urobilinogen, UA 0.2 0.2 - 12 mg/dL [facility] CNNURSEon 2024 CNNURSE Nurse Visit (REIAV) LISSA RIVAS ([id number]) 1995 F Date Time Provider Department 04/03/24 11:[address] REJ DAVI During your visit today, [...] Plan Move on to OB Ortega Morrissey APRN.APPLICATIONS INSTRUCTOR 2024 4:34 PM Referring Provider: ORTEGA MORRISSEY [[id number]] Allergies As of Date: 2024 (No Known Allergies) Date Reviewed: 02/23/2024 Reviewed by: Paula Hester RN - Fully Assessed Visit Diagnosis:Supervision of with history of infertility, first trimester [O09.01] Order(s):OBSTETRIC ULTRASOUND [facility] [[id number]] Order #: [id number]. #[id number] EWPOINTQty: 1 Prescriptions as of 2024 - [...] Status:Closed by JAILENE HOWARD on 04/03/24 Normal [facility] Examination level ultrasound on 2024 Indication Viability Impression - Single, live, intrauterine . - An intrauterine gestational sac with a yolk sac and pole is present. - [place] rump length measurement is NOT consistent with [...] Read By: Jailene Howard M.D. MATERNAL MEDICINE [facility] Radiology Study observation (narrative) Theresa torres [facility], Urineon 024 Amphetamine/Methamphetam ine Negative [facility] System [facility]biturates [facility] Oxycodone Negative [facility] CONSULT PROGon 03-20-2024 CONSULT PROG HNO ID: [id number] Author: FEDE HAIRSTON MD Service: ? Author [...] Hysteroscopy Laparoscopy OPK (Ovulation Predictor Kit) Ovarian [facility] 10.91 High 01/04/2023 Saline Ultrasound Semen [...] visit. Either the patient or their legal telephone services sales representative has been informed of the risks and benefits of -- and alternatives to -- treatment through a remote evaluation and consents to proceed with the evaluation remotely. I spent a total of 30 minutes on the date of the service which included preparing to see the patient, gmkr-[id number] patient care, counseling and educating the patient/family/caregiv er, ordering medications, tests, or procedures, communicating results to the patient/family/caregiv er, and care coordination (not separately reported). MD Kim Branch MD Normal [facility] B-HCG [facility] 4 HCG.beta subunit Qn 190.7 m[IU]/mL High <5.0 C [facility] Comment on above: Order Comment: Speci men Type: BLOOD SPECIMENOrdering Facility: [facility] Address: [address] [place] [address] Result Comment: LUCA TITATIVE HCG NORMAL RANGES Weeks of Gestation (Weeks Since LMP) 3 Weeks (5.8-71.2 mIU/mL) 4 Weeks (9.5-750 mIU/mL) 5 Weeks (217-7138 mIU/mL) 6 Weeks (158-39520 mIU/mL) 7 Weeks (3697-093686 mIU/mL) 8 Weeks (25520-010204 mIU/mL) 9 Weeks (59218-661925 mIU/mL) 10 Weeks (95660-730043 mIU/mL) 12 Weeks (26888-714283 mIU/mL) Referenced to 4th IS of NIBSC Performed By: #### 2 1198-7 ####[facility] LABIA [id number] [address] [place] B-HCG SerPl-aCncon 4 HCG.beta subunit Qn 87.6 m[IU]/mL High <5.0 [facility] Comment on above: Order Comment: Speci men Type: BLOOD SPECIMENOrdering Facility: [facility] Address: [address] [place] [address] Result Comment: LUCA TITATIVE HCG NORMAL RANGES Weeks of Gestation (Weeks Since LMP) 3 Weeks (5.8-71.2 mIU/mL) 4 Weeks (9.5-750 mIU/mL) 5 Weeks (217-7138 mIU/mL) 6 Weeks (158-48902 mIU/mL) 7 Weeks (3697-620629 mIU/mL) 8 Weeks (36678-473039 mIU/mL) 9 Weeks (32003-470088 mIU/mL) 10 Weeks (53758-574053 mIU/mL) 12 Weeks (92649-614760 mIU/mL) Referenced to 4th IS of [facility] Performed By: #### 2 1198-7 ####[facility]IA [id number] [address] OF [place] B-HCG SerPl-aCncon 4 HCG.beta subunit Qn 21.9 m[IU]/mL High <5.0 [facility] Comment on above: Order Comment: Speci men Type: BLOOD SPECIMENOrdering Facility: [facility] Address: [address] [place] [address] Result Comment: LUCA TITATIVE HCG NORMAL RANGES Weeks of Gestation (Weeks Since LMP) 3 Weeks (5.8-71.2 mIU/mL) 4 Weeks (9.5-750 mIU/mL) 5 Weeks (217-7138 mIU/mL) 6 Weeks (158-97036 mIU/mL) 7 Weeks (3697-866605 mIU/mL) 8 Weeks (20976-725656 mIU/mL) 9 Weeks (55765-655392 mIU/mL) 10 Weeks (05760-445274 mIU/mL) 12 Weeks (54008-271925 mIU/mL) Referenced to 4th IS of [facility] Performed By: #### 2 1198-7 ####[facility] LABCLIA [id number] [address] [facility] CNPN Telephone (REIBD) LISSA RIVAS ([id number]) 1995 F Date Time Provider Department 03/13/24 FEDE HAIRSTON During your visit today, we recorded the following information about you: Ayanna Wise 03/13/2024 11:56 AM Signed Patient states she skipped this month and has +hpt, please follow up with patient. Ortega Morrissey APRN.APPLICATIONS INSTRUCTOR 03/13/2024 1:37 PM Signed Patient calls with [...] ordered: HCG x2 FYI Dr. Bill Morrissey, STEWARD/STEWARDESS SMOKE ROOM.APPLICATIONS INSTRUCTOR March 13, 2024 1:37 PM Allergies As of Date: 03/13/2024 (No Known Allergies) Date Reviewed: 02/23/2024 Reviewed by: Paula Hester RN - Fully Assessed Reason for Visit: +hpt today/lmp 02/12 skipped treatment this month [Other] Primary Visit Diagnosis:Supervision of with history of infertility, first trimester [O09.01] Other Visit Diagnosis: examination or test, unconfirmed [Z32.00] Order(s):HCG QUANTITATIVE [SQHCGQT] Order #: [id number] STANDING Prescriptions as of 03/13/2024 - metFORMIN [...] Status:Closed by ORTEGA MORRISSEY on 03/13/24 Normal [facility] Progest Laurent-Avni 12-13-2 024 Progesterone [Mass/Vol] 17.8 ng/mL Normal See comment [facility] Comment on above: Order Comment: Speci men Type: BLOOD SPECIMENOrdering Facility: [facility] Address: [address] [place] [address] Result Comment: Mens trual Cycle Progesterone Reference Ranges: Follicular: <1.0 ng/mL Ovulation: <12.1 ng/mL Luteal: 1.8 to 23.9 ng/mL. Progesterone Reference Ranges vary by gestational period: First Trimester: 11.0 to 44.3 ng/mL Second Trimester: 25.4 to 83.3 ng/mL Third Trimester: 58.7 to 214 ng/mL Post menopausal Progesterone: <0.5 ng/mL Reference: 1. Progesterone (Progesterone III) [package insert V 1.0 Argentine]. [facility], [place], [place]. December 2014. Performed By: #### 2 839-9 ####[facility] LABCAMPOS [id number] [place] [id number] [facility]2024 JORDANN Telephone (REIBD) LISSA RIVAS ([id number]) 1995 F Date Time Provider Department 02/28/24 FEDE HAIRSTON During your visit today, we recorded the following information about you: Joanna Garces 02/28/2024 8:23 AM Signed Pt is not financially clear yet should she still schedule it after she pays Ortega Morrissey APRN.APPLICATIONS INSTRUCTOR 02/28/2024 11:54 AM Signed Spoke with Thao, [...] cycle day 3-7 Authorizing Provider: ORTEGA MORRISSEY APRN.APPLICATIONS INSTRUCTOR February 28, 2024 11:54 AM Allergies As of Date: 02/28/2024 (No Known Allergies) Date Reviewed: 02/23/2024 Reviewed by: Paula Hester, ARIC - Fully Assessed Reason for Visit: ortega pt is not cleared for us should she still have it do [Other] Primary Visit Diagnosis:Female infertility [N97.9] Order(s):PROGESTERONE [SQPROG] Order #: [id number] FUTURE letrozole (FEMARA) 2.5 mg tabletTake 3 [...] Status:Closed by ORTEGA MORRISSEY on 02/28/24 Normal [facility] 25(OH)D3 [facility] 25-hydroxyvitamin D3 [Mass/Vol] 49.3 ng/mL Normal 31.0-80.0 [facility] Comment on above: Order Comment: Speci men Type: BLOOD SPECIMEN [facility] Address: [address] [place] [address] Result Comment: Clas sification of 25 [place] Vitamin D status: Deficiency/Insufficiency: < or = 30 ng/ml. Sufficiency/Optimal Levels: 31-80 ng/mL Toxicity: > 100 ng/mL. Test performed by chemiluminescent immunoassay. Performed By: #### 1 989-3 #### [facility] CLIA [id number] [address] [place] [address] [place] 25-hydroxyvitamin D3 [Mass/V ol]on 02-23-2024 Interpretation and review of laboratory results Normal [facility] The reference range interval was based on an analysis of samples from healthy adults and may not pertain to children from 0-18 years old. [facility] CBC panel Auto (Bld)on 02-22 Erythrocyte distribution width (RBC) [Ratio] 12.4 % 11.5 - 15.0 % [facility] Hematocrit (Bld) [Volume fraction] 40.6 % 36.0 - 46.0 % [facility] Hemoglobin (Bld) [Mass/Vol] 13.5 g/dL 11.5 - 15.5 g/dL [facility] Interpretation and review of laboratory results Normal [facility] MCH (RBC) [Entitic mass] 31.1 pg 26. 0 - 34.0 pg [facility] MCHC (RBC) [Mass/Vol] 33.3 g/dL 30.5 - 36.0 g/dL [facility] MCV (RBC) [Entitic vol] 93.5 fL 80.0 - 100.0 fL [facility] Nucleated RBC (Bld) [#/Vol] NINF [facility] Platelet mean volume (Bld) [Entitic vol] 10.6 fL 9.0 - 12.7 fL [facility] Platelets (Bld) [#/Vol] 261 10*3/uL [facility] RBC (Bld) [#/Vol] 4.34 10*6/uL 3.90 - 5.2 0 m/uL [facility] WBC (Bld) [#/Vol] 8.81 10*3/uL [facility] Erythrocyte distribution width (RBC) [Ratio] 12.4 % Normal 11.5-15.0 [facility] Comment on above: Order Comment: Harmonyi arsen Type: BLOOD SPECIMEN [facility] Address: [address] [place] [address] Performed By: #### 5 8410-2 #### [facility] [place] [id number] STATES [place] [facility] Hematocrit (Bld) [Volume fraction] 40.6 % Normal 36.0-46.0 [facility] Comment on above: Order Comment: Jarek leger Type: BLOOD SPECIMEN [facility] Address: [address] [place] [address] Performed By: #### 5 8410-2 #### [facility] CLIA [id number] [address] [place] [address] [place] Hemoglobin (Bld) [Mass/Vol] 13.5 g/dL Normal 11.5-15.5 [facility] Comment on above: Order Comment: Harmonyi arsen Type: BLOOD SPECIMEN [facility] Address: [address] [place] [address] Performed By: #### 5 8410-2 #### [facility] CLIA [id number] [address] [place] [address] [place] MCH (RBC) [Entitic mass] 31.1 pg Normal 26.0-34.0 [facility] Comment on above: Order Comment: Speci men Type: BLOOD SPECIMEN [facility] Address: [address] [place] [address] Performed By: #### 5 8410-2 #### [facility] CLIA [id number] [address] [place] [address] [place] MCHC (RBC) [Mass/Vol] 33.3 g/dL Normal 30.5-36.0 [facility] Comment on above: Order Comment: Speci men Type: BLOOD SPECIMEN [facility] Address: [address] [place] [address] Performed By: #### 5 8410-2 #### [facility] [place] [id number] [address] [place] [address] [place] MCV (RBC) [Entitic vol] 93.5 fL Normal 80.0-100.0 [facility] Comment on above: Order Comment: Speci men Type: BLOOD SPECIMEN [facility] Address: [address] [place] [address] Performed By: #### 5 8410-2 #### [facility] CLIA [id number] [address] [place] [address] [place] Nucleated RBC (Bld) [#/Vol] 10*3/uL Normal <0.01 [facility] Comment on above: Order Comment: Speci men Type: BLOOD SPECIMEN [facility] Address: [address] [place] [address] Performed By: #### 5 8410-2 #### [facility] CLIA [id number] [address] [place] [address] [place] Platelet mean volume (Bld) [Entitic vol] 10.6 fL Normal 9.0-12.7 [facility] Comment on above: Order Comment: Speci men Type: BLOOD SPECIMEN [facility] Address: [address] [place] [address] Performed By: #### 5 8410-2 #### [facility] CLIA [id number] [address] [place] [address] [place] Platelets (Bld) [#/Vol] 261 10*3/uL Normal 150-400 [facility] Comment on above: Order Comment: Speci men Type: BLOOD SPECIMEN [facility] Address: [address] [place] [address] Performed By: #### 5 8410-2 #### [facility] CLIA [id number] [address] [place] [address] [place] RBC (Bld) [#/Vol] 4.34 10*6/uL Normal 3.90-5.20 [facility] Comment on above: Order Comment: Speci men Type: BLOOD SPECIMEN [facility] Address: [address] [place] [address] Performed By: #### 5 8410-2 #### [facility] [place] [id number] [address] STATES OF [facility] WBC (Bld) [#/Vol] 8.81 10*3/uL Normal 3.70-11.00 [facility] Comment on above: Order Comment: Speci men Type: BLOOD SPECIMEN [facility] Address: [address] [place] [address] Performed By: #### 5 8410-2 #### [facility] [place] [id number] [address] [place] [id number] [facility] (DAVI[facility] LISSA RIVAS ([id number]) 1995 F Date Time Provider Department 02/23/24 [...] schedule the patient for the following- Location: [facility] Provider: Nurse Visit type: midcycle Reason for visit/appointment notes: midcycle Date: 02/24 Time (requested): 0730 If slot is full, please schedule the closest open slot. Call to patient needed: Ortega Martinez APRN.CNP 02/23/2024 4:03 PM Signed Addended by: ORTEGA MORRISSEY on: 02/23/2024 04:03 PM Modules accepted: Orders Referring Provider: ORTEGA MORRISSEY [[id number]] Allergies As of Date: 02/23/2024 (No Known Allergies) Date Reviewed: 02/23/2024 Reviewed by: Paula Hester RN - Fully Assessed Reason for Visit: Infertility [285] Visit Diagnosis:Female infertility [N97.9] Order(s):FOLLICULAR US [facility] [[id number]] Order #: [id number]. #:[id number] EWPOINTQty: [address] [facility] [[id number]] Order #: [id number]: 1 FUTURE Prescriptions as of 02/23/2024 - [...] Status:Closed by VANESSA VO on 02/23/24 Normal [facility] Cobalamin (Vitamin B12) [Mas s/Vol]on 02-23-2024 Interpretation and review of laboratory results Normal [facility] Comprehensive metabolic 2000 panelon 02-23-2024 Albumin [Mass/Vol] 4.5 g/dL 3.9 - 4.9 g/dL [facility] ALP [Catalytic activity/Vol] 65 U/L 34 - 123 U/L [facility] ALT [Catalytic activity/Vol] 41 U/L High 7 - 38 U/L [facility] Anion gap [Moles/Vol] 12 mmol/L 8 - 15 mmol/L [facility] AST [Catalytic activity/Vol] 21 U/L 13 - 35 U/L [facility] Bilirubin [Mass/Vol] 0.2 mg/dL 0.2 - 1 .3 mg/dL [facility] Calcium [Mass/Vol] 9.3 mg/dL 8.5 - 10. 2 mg/dL [facility] Chloride [Moles/Vol] 105 mmol/L 98 - 10 7 mmol/L [facility] CO2 [Moles/Vol] 24 mmol/L 22 - 30 mmol/L [facility] Creatinine [Mass/Vol] 0.78 mg/dL 0.58 - 0.96 mg/dL [facility] GFR/1.73 sq M.predicted among non-blacks MDRD (S/P/Bld) [Vol rate/Area] 106 mL/min/{1.73_m2} - PINF [facility] Comment on above: Estimated Glomerular Filtration [...] [Mass/Vol] 98 mg/dL 74 - 99 mg/dL [facility] Comment on above: The [place] Diabete s Association (ADA) provides guidance for [...] Standards of Medical Care in Diabetes 2016, [place] Diabetes Association. Diabetes Care. 2016.39(Suppl 1). Interpretation and review of laboratory results Abnormal [facility] Potassium [Moles/Vol] 4.3 mmol/L 3.7 - 5.1 mmol/L [facility] Protein [Mass/Vol] 7.3 g/dL 6.3 - 8.0 g/dL [facility] Sodium [Moles/Vol] 141 mmol/L 136 - 144 mmol/L [facility] Urea nitrogen [Mass/Vol] 11 mg/dL 7 - 21 mg/d L [facility] Albumin [Mass/Vol] 4.5 g/dL Normal 3.9-4.9 [facility] Comment on above: Order Comment: Speci men Type: BLOOD SPECIMEN [facility] Address: [address] [place] [address] Performed By: #### 2 4323-8 #### [facility] CLIA [id number] [address] [place] [address] [place] ALP [Catalytic activity/Vol] 65 U/L Normal 34-123 [facility] Comment on above: Order Comment: Speci men Type: BLOOD SPECIMEN [facility] Address: [address] [place] [address] Performed By: #### 2 4323-8 #### [facility] CLIA [id number] [address] [place] [address] [place] ALT [Catalytic activity/Vol] 41 U/L High 7-38 [facility] Comment on above: Order Comment: Speci men Type: BLOOD SPECIMEN [facility] Address: [address] [place] [address] Performed By: #### 2 4323-8 #### [facility] CLIA [id number] [address] [place] [address] [place] Anion gap [Moles/Vol] 12 mmol/L Normal 8-15 [facility] Comment on above: Order Comment: Speci men Type: BLOOD SPECIMEN [facility] Address: [address] [place] [address] Performed By: #### 2 4323-8 #### [facility] CLIA [id number] [address] [place] [address] [place] AST [Catalytic activity/Vol] 21 U/L Normal 13-35 [facility] Comment on above: Order Comment: Speci men Type: BLOOD SPECIMEN [facility] Address: [address] [place] [address] Performed By: #### 2 4323-8 #### [facility] CLIA [id number] [address] [place] [address] [place] Bilirubin [Mass/Vol] 0.2 mg/dL Normal 0.2-1.3 [facility] Comment on above: Order Comment: Speci men Type: BLOOD SPECIMEN [facility] Address: [address] [place] [address] Performed By: #### 2 4323-8 #### [facility] CLIA [id number] [place] [address] [place] Calcium [Mass/Vol] 9.3 mg/dL Normal 8.5-10.2 [facility] Comment on above: Order Comment: Speci men Type: BLOOD SPECIMEN [facility] Address: [address] [place] [address] Performed By: #### 2 4323-8 #### [facility] CLIA [id number] [address] [place] [address] [place] Chloride [Moles/Vol] 105 mmol/L Normal 98-107 [facility] Comment on above: Order Comment: Speci men Type: BLOOD SPECIMEN [facility] Address: [address] [place] [address] Performed By: #### 2 4323-8 #### [facility] CLIA [id number] [address] [place] [address] [place] CO2 [Moles/Vol] 24 mmol/L Normal 22-30 [facility] Comment on above: Order Comment: Speci men Type: BLOOD SPECIMEN [facility] Address: [address] [place] [address] Performed By: #### 2 4323-8 #### [facility] [place] [id number] [address] [place] [address] [place] Creatinine [Mass/Vol] 0.78 mg/dL Normal 0.58-0.96 [facility] Comment on above: Order Comment: Jarek leger Type: BLOOD SPECIMEN [facility] Address: [address] [place] [address] Performed By: #### 2 4323-8 #### [facility] CLIA [id number] [address] [place] [address] [place] [facility] Creatinine and Glomerular filtration rate.predicted panel (S/P/Bld) 106 mL/min/1.73m??? Normal >=60 [facility] Comment on above: Order Comment: Jarek leger Type: BLOOD SPECIMEN [facility] Address: [address] [place] [address] Result Comment: Estefanía mated Glomerular Filtration Rate [...] GFR. Performed By: #### 2 4323-8 #### [facility] CLIA [id number] [address] [place] [address] [place] Glucose [Mass/Vol] 98 mg/dL Normal 74-99 [facility] Comment on above: Order Comment: Jarek leger Type: BLOOD SPECIMEN [facility] Address: [address] [place] [address] Result Comment: The [place] Diabetes Association (ADA) provides guidance for cutoff [...] Standards of Medical Care in Diabetes 2016, [place] Diabetes Association. Diabetes Care. 2016.39(Suppl 1). Performed By: #### 2 4323-8 #### [facility] CLIA [id number] [address] [place] [address] [place] Potassium [Moles/Vol] 4.3 mmol/L Normal 3.7-5.1 [facility] Comment on above: Order Comment: Speci men Type: BLOOD SPECIMEN [facility] Address: [address] [place] [address] Performed By: #### 2 4323-8 #### [facility] CLIA [id number] [address] [place] [address] [place] Protein [Mass/Vol] 7.3 g/dL Normal 6.3-8.0 [facility] Comment on above: Order Comment: Speci men Type: BLOOD SPECIMEN [facility] Address: [address] [place] [address] Performed By: #### 2 4323-8 #### [facility] IA [id number] [address] [place] [address] [place] Sodium [Moles/Vol] 141 mmol/L Normal 136-144 [facility] Comment on above: Order Comment: Speci men Type: BLOOD SPECIMEN [facility] Address: [address] [place] [address] Performed By: #### 2 4323-8 #### [facility] CLIA [id number] [address] [place] [address] [place] Urea nitrogen [Mass/Vol] 11 mg/dL Normal 7-21 [facility] Comment on above: Order Comment: Speci men Type: BLOOD SPECIMEN [facility] Address: [address] [place] [address] Performed By: #### 2 4323-8 #### [facility] CLIA [id number] [address] [place] [address] [place] Follicle Diameter USon [...] Read By: Vanessa Vo M.D. MATERNAL MEDICINE [facility] Radiology Study observation (narrative) [facility] HbA1c (Bld)on 02-23-2024 Average glucose Estimated from glycated hemoglobin (Bld) [Mass/Vol] 111 mg/dL [facility] Comment on above: eAG: (Estimated aver age glucose) is a calculated value from HgbA1c and is telephone services sales representative of the average blood glucose level in the last 2-3 month period. HbA1c (Bld) [Mass fraction] 5.5 % 4.3 - 5.6 % [facility] Comment on above: [place] Diabetes As sociation guidelines indicate that patients with HgbA1c in the range 5.7-6.4% are at increased risk for development of diabetes, and intervention by lifestyle modification may be beneficial. HgbA1c greater or equal to 6.5% is considered diagnostic of diabetes. [facility] Average glucose Estimated from glycated hemoglobin (Bld) [Mass/Vol] 111 mg/dL Normal [facility] Comment on above: Order Comment: Jarek leger Type: BLOOD SPECIMEN [facility] Address: [address] [place] [address] Result Comment: eAG: (Estimated average glucose) is a calculated value from HgbA1c and is telephone services sales representative of the average blood glucose level in the last 2-3 month period. Performed By: #### 5 5454-3 #### [facility] CLIA [id number] [address] [place] [address] [place] HbA1c (Bld) [Mass fraction] 5.5 % Normal 4.3-5.6 [facility] Comment on above: Order Comment: Jarek leger Type: BLOOD SPECIMEN [facility] Address: [address] [place] [address] Result Comment: [place] Diabetes Association guidelines indicate that patients with HgbA1c in the range 5.7-6.4% are at increased risk for development of diabetes, and intervention by lifestyle modification may be beneficial. HgbA1c greater or equal to 6.5% is considered diagnostic of diabetes. Performed By: #### 5 5454-3 #### [facility] CLIA [id number] [address] [place] [address] [place] VITAMIN B12on 02-23-2024 Cobalamin (Vitamin B12) [Mass/Vol] 567 pg/mL 232 - 1245 pg/mL [facility] VITAMIN D 25 HYDROXYon 02-22 25-hydroxyvitamin D3 [Mass/Vol] 49.3 ng/mL 31.0 - 80.0 ng/mL [facility] Comment on above: Classification of 25 [place] Vitamin D status: Deficiency/Insufficiency: < or = 30 ng/ml. Sufficiency/Optimal Levels: 31-80 ng/mL Toxicity: > 100 ng/mL. Test performed by chemiluminescent immunoassay. Vit B12 [facility] 27-2 024 Cobalamin (Vitamin B12) [Mass/Vol] 567 pg/mL Normal 232-1245 [facility] Comment on above: Order Comment: Speci men Type: BLOOD SPECIMEN [facility] Address: [address] [place] [address] Performed By: #### 2 132-9 #### [facility] CLIA [id number] [facility] [address] [place] [address] [facility] Alexandra 02-21-2024 LAURA Telephone (REIBD) LISSA RIVAS ([id number]) 1995 F Date Time Provider Department 02/21/24 FEDE HAIRSTON During your visit today, we recorded the following information about you: oJanna Garces 02/21/2024 10:32 AM Signed Needs hcg [...] Encounter Status:Closed by ORTEGA MORRISSEY on 02/21/24 [facility] [id number] 02-17-2024 HNO ID: [id number] Author: FEDE HAIRSTON MD Service: ? Author [...] visit. Either the patient or their legal telephone services sales representative has been informed of the risks and benefits of -- and alternatives to -- treatment through a remote evaluation and consents to proceed with the evaluation remotely. I spent a total of 30 minutes on the date of the service which included preparing to see the patient, nemg-io-hfqg patient care, counseling and educating the patient/family/caregiv er, ordering medications, tests, or procedures, communicating results to the patient/family/caregiv er, and care coordination (not separately reported). Kim Khan MD [facility] APTIMA MULTITEST VAGINALon 1 04-17-2023 [facility] No Panel Informationon 02-15 APTIMA BACTERIAL VAGINOSIS Not detected [facility] APTIMA SHANTA GLABRATA Not detected [facility] APTIMA CHLAMYDIA TRACHOMATIS 5 ppm [facility] APTIMA CHLAMYDIA TRACHOMATIS Not detected ppm [facility] CNPNon 02-15-2024 [facility] Telephone (REIBD) LISSA RIVAS ([id number]) 1995 F Date Time Provider Department 02/15/24 [...] cycle day 3-7Disp: 10 tabletRfl: 2 FOLLICULAR WHI [[id number]] Order #: [id number]: 1 FUTURE Prescriptions as of 02/15/2024 - [...] Status:Closed by ORTEGA MORRISSEY on 02/15/24 Normal [facility] POCT trichomonas alexis david 02-15-2024 Bacterial vaginosis and vaginitis DNA panel Probe+sig amp (Vag fld) Negative Negative [facility] Interpretation and review of laboratory results Normal [facility] Trichomonas, UA Negative [facility] Yeast [...] Available Comment on above: Order Comment: Ruby josefina is working with reproductive specialist at [facility] and needs MRI done within the next 13 days. If [facility] not able to accommodate her, anywhere that is able to schedule within that timeframe would be fine. Alexandra 01-14-2024 LAURA Telephone (REIBD) LISSA RIVAS ([id number]) 1995 F Date Time Provider Department 01/14/24 ORTEGA MORRISSEY REPEDRO During your visit today, we recorded the following information about you: Keren Carcamo 01/14/2024 9:04 AM Signed Pt started cycle 01/12 and would like to discuss plan for scheduling iui Ortega Morrissey APRN.APPLICATIONS INSTRUCTOR 01/14/2024 4:18 PM Signed Spoke with Lissa, She is planning to use OPK only this cycle. Jeferson call with [facility]. Ortega Morrissey APRN.JORDAN January 14, 2024 4:17 [...] Encounter Status:Closed by ORTEGA MORRISSEY on 01/14/24 [facility] LYNDSAYOVon 12-31-2023 CNOV Office Visit (REIAV) LISSA RIVAS ([id number]) 1995 F Date Time Provider Department 12/31/23 10:00 AM ORTEGA MORRISSEY During your visit today, we recorded the following information about you: Last Period 12/12/23 Domenica Coon MA 12/31/2023 10:07 AM Signed Sleeve Tailor offered: Patient declines. Ortega Morrissey APRN.CNP 12/31/2023 [...] Cycle Day: 20 Last menstrual period: 12/12/2023 [place] Protocol: UNIVERSAL PROTOCOL / SAFETY CHECKLIST Procedure [...] 08/17/2023 Visit Notes: >> Domenica Coon MA [facility] Dec 31, 2023 10:07 AM Status: Signed Sleeve Tailor offered: Patient declines. Encounter Status:Closed by ORETGA MORRISSEY on 12/31/23 [facility] Nurse Visit (LOUISIAV) LISSA RIVAS ([id number]) 1995 F Date Time Provider Department 12/21/23 [...] plan provided to patient via a Fertility philosophy faculty member. MD Darrell Branch Laura, RN 12/21/2023 2:32 PM Signed pt using LH surge strips and will call to [facility] IUI Robin Grewal RN December 21, 2023 2:32 PM Referring Provider: ORTEGA MORRISSEY [[id number]] Allergies As of Date: 12/21/2023 (No Known Allergies) Date Reviewed: 11/22/2023 Reviewed by: Ortega Morrissey APRN.APPLICATIONS INSTRUCTOR - Fully Assessed Visit Diagnosis:Female infertility [N97.9] Order(s):FOLLICULAR US [facility] [[id number]] Order #: [id number]. #:[id number] EWPOINTQty: 1 Prescriptions as of 12/21/2023 - [...] Status:Closed by ROBIN GREWAL on 12/21/23 Normal [facility] Follicle Diameter USon 12-20 Indication MIdcycle, [...] free fluid visualized Performed By: Cornelia Macario; [facility] Read By: Fede Hairston M.D. MATERNAL MEDICINE [facility] Radiology Study observation (narrative) [facility] Alexandra 12-13-2023 JORDANN Telephone (REIBD) LISSA RIVAS ([id number]) 1995 F Date Time Provider Department 12/13/23 JIMAMARAFEDE During your visit today, we recorded the following information about you: Ortega Morrissey APRN.CNP 12/13/2023 4:49 PM Signed LMP 12/11 Plan: Let 5mg, trigger, IUI#2 Flowsheet/episode created Ortega Morrissey APRN.CNP December 13, 2023 4:42 PM Please schedule the patient for the following- Location: [place] Provider: Nurse Visit type: Midcycle Reason for [...] [1234] Primary Visit Diagnosis:Female infertility [N97.9] Order(s):FOLLICULAR [facility] [[id number]] Order #: [id number]: 1 FUTURE Choriogonadotropin Pam,HumRec (OVIDREL) 250 mcg/0.5 [...] Encounter Status:Closed by ORTEGA MORRISSEY on 12/13/23 [facility] CNOVkyle 11-28-2023 CNOV Office Visit (REIBD) LISSA RIVAS ([id number]) 1995 F Date Time Provider Department 11/28/23 [...] Cycle Day: 13 Last menstrual period: 11/12/2023 [place] Protocol: UNIVERSAL PROTOCOL / SAFETY CHECKLIST Procedure [...] # 44.8 million Referring Provider: DESHAWN RIOJAS [[id number]] Allergies As of Date: 11/28/2023 (No Known Allergies) Date Reviewed: 11/22/2023 Reviewed by: Ortega Morrissey APRN.APPLICATIONS INSTRUCTOR - Fully Assessed Primary Visit Diagnosis:Female infertility [...] Encounter Status:Closed by DESHAWN RIOJAS on 11/28/23 [facility] Nurse Visit (REIAV) LISSA RIVAS ([id number]) 1995 F Date Time Provider Department 11/22/23 7:15 AM NURSE [facility] REJ REJOSELINE During your visit today, we recorded [...] called patient. She will drive back to [place] now to get done. Erma Donis RN November 22, 2023 8:45 AM 11/22/2023 11 trigger 25+<10mm 21.2, 25+<10mm 5.6mm tri p4=0.3 lh=5.1 JR 11/23/2023 12 11/24/2023 13 IUI RN called patient, name and verified. Plan given for midcycle per physician, see flowsheet for details. Eveot message sent. Medications reviewed and verified, instructions given. Patient denies any questions or concerns. Erma Donis RN November 22, 2023 12:53 PM Referring Provider: ORTEGA MORRISSEY [[id number]] Allergies As of Date: 11/22/2023 (No Known Allergies) Date Reviewed: 11/22/2023 Reviewed by: Ortega Morrissey APRN.APPLICATIONS INSTRUCTOR - Fully Assessed Visit Diagnosis:Female infertility [N97.9] Order(s):FOLLICULAR US [facility] [[id number]] Order #: [id number]. #:[id number] EWPOINTQty: 1 PROGESTERONE [SQPROG] Order #: [id number] FUTURE LUTEINIZING HORMONE [L] Order #: [id number] FUTURE Prescriptions as of 11/22/2023 - progesterone [...] Status:Closed by JAILENE HOWARD on 11/22/23 [facility] Follicle Diameter USon 11-21 Indication Follicle monitoring, [...] Read By: Jailene Howard M.D. MATERNAL MEDICINE [facility] Radiology Study observation (narrative) [facility] LH SerPl-aCncon 11-22-2023 Lutropin Qn 5.1 m[IU]/mL Normal See comment [facility] Comment on above: Order Comment: Speci men Type: BLOOD SPECIMEN Ordering Facility: [facility] Address: [address] [place] [address] Result Comment: Refe rence range: Follicular: 2.4-12.6 mIU/mL Midcycle: 14.0-95.6 mIU/mL Luteal: 1.0-11.4 mIU/mL [place]: 7.7-58.5 mIU/mL Performed By: #### 2 839-9, 48602-2 #### [facility] CLIA [id number] [facility]. [address] [facility] LUTEINIZING HORMONEon 2023 Lutropin Qn 5.1 m[IU]/mL See comment mIU/mL [facility] Comment on above: Reference range: Follicular: 2.4-12.6 mIU/mL Midcycle: 14.0-95.6 mIU/mL Luteal: 1.0-11.4 mIU/mL Post [place]: 7.7-58.5 mIU/mL No Panel Informationon 11-21 [facility] PROGESTERONEon 11-22-2023 Progesterone [Mass/Vol] 0.3 ng/mL See comment [facility] Comment on above: Menstrual Cycle Prog esterone Reference Ranges: Follicular: <1.0 ng/mL Ovulation: <12.1 ng/mL Luteal: 1.8 to 23.9 ng/mL. Progesterone Reference Ranges vary by gestational period: First Trimester: 11.0 to 44.3 ng/mL Second Trimester: 25.4 to 83.3 ng/mL Third Trimester: 58.7 to 214 ng/mL Post menopausal Progesterone: <0.5 ng/mL Reference: 1. Progesterone (Progesterone III) [package insert V 1.0 Argentine]. [employer], [place], [place]. December 2014. Progest Yolandal-haion 024 Progesterone [Mass/Vol] 0.3 ng/mL Normal See comment [facility] Comment on above: Order Comment: Speci men Type: BLOOD SPECIMEN Ordering Facility: [facility] Address: [address] [place] [address] Result Comment: Mens trual Cycle Progesterone Reference Ranges: Follicular: <1.0 ng/mL Ovulation: <12.1 ng/mL Luteal: 1.8 to 23.9 ng/mL. Progesterone Reference Ranges vary by gestational period: First Trimester: 11.0 to 44.3 ng/mL Second Trimester: 25.4 to 83.3 ng/mL Third Trimester: 58.7 to 214 ng/mL Post menopausal Progesterone: <0.5 ng/mL Reference: 1. Progesterone (Progesterone III) [package insert V 1.0 Argentine]. [employer], [place], [place]. December 2014. Performed By: #### 2 839-9, 19819-8 #### [facility] CLIA [id number] [facility]. [place], [place] [id number] [place] [address] [facility] Alexandra 11-12-2023 CNPN Telephone (REIBD) LISSA RIVAS ([id number]) 1995 F Date Time Provider Department 11/12/23 [...] [Z31.49] Other Visit Diagnosis:Female infertility [N97.9] Order(s):FOLLICULAR [facility] [[id number]] Order #: [id number]: 1 FUTURE Prescriptions as of 11/15/2023 - [...] Encounter Status:Closed by ORTEGA MORRISSEY on 11/15/23 [facility] CNOVon 10-26-2023 CNOV Office Visit (REIAV) LISSA RIVAS ([id number]) 1995 F Date Time Provider Department 10/26/23 [...] Cycle Day: 15 Last menstrual period: 10/12/2023 [place] Protocol: UNIVERSAL PROTOCOL / SAFETY CHECKLIST Procedure [...] TIME: 11:36 AM Referring Provider: ORTEGA MORRISSEY [[id number]] Allergies As of Date: 10/26/2023 (No Known [...] Encounter Status:Closed by ORTEGA MORRISSEY on 10/26/23 [facility] ([facility]OUISIAV[facility] LISSA RIVAS ([id number]) 1995 F Date Time Provider Department 10/22/23 7:00 AM NURSE [facility] REJ REIAV During your visit today, we recorded the following information about you: Erma Donis RN 10/22/2023 1:41 PM Signed Lissa Rivas is here today for a midcycle scan. Lead follicle: 14 Erma Donis RN October 22, 2023 7:25 AM RN called patient, name and verified. Plan given for midcycle per physician, see flowsheet for details. Eveot message sent. Medications reviewed and verified, instructions [...] Trevizo MD, FLACO Referring Provider: ORTEGA MORRISSEY [[id number]] Allergies As of Date: 10/22/2023 (No Known Allergies) Date Reviewed: 08/18/2023 Reviewed by: Domenica Coon MA - Fully Assessed Visit Diagnosis:Female infertility [N97.9] Order(s):FOLLICULAR US [facility] [[id number]] Order #: [id number]. #:[id number] EWPOINTQty: 1 Prescriptions as of 10/22/2023 - [...] Status:Closed by ERMA DONIS on 10/22/23 Normal [facility] Follicle Diameter USon 10-21 Indication Baseline [...] Read By: Ayanna Trevizo MD MATERNAL MEDICINE [facility] Radiology Study observation (narrative) Theresa torres [facility] C[facility] Telephone (REIBD) LISSA RIVAS ([id number]) 1995 F Date Time Provider Department 10/20/23 SELF REIBD During your visit today, we recorded the following information about you: Keren Carcamo 10/20/2023 2:26 PM Signed Pts pharmacy called and would like to know when she needs to order trigger shot Ani Stovall APRN.APPLICATIONS INSTRUCTOR 10/20/2023 3:11 PM Signed patient instructed to order trigger now so that she has it by Wednesday Ani Stovall APRN.[facility] October 20, 2023 3:10 PM Allergies As [...] Encounter Status:Closed by ANI STOVALL on 10/20/23 [facility] ([id number]) 1995 F Date Time Provider Department 10/12/23 [...] schedule the patient for the following- Location: [place] Provider: nurse Visit type: mid cycle Reason [...] Status:Closed by ORTEGA MORRISSEY on 10/12/23 Normal [facility] No Panel Informationon 08-16 Interpretation and review of laboratory results Normal [facility] T4 FREE/FREE THYROXINEon Free T4 [Mass/Vol] 1.1 ng/dL 0.9 - 1.7 ng/dL [facility] THYROID PEROXIDASE ANTIBODYo n 08-17-2023 Interpretation and review of laboratory results Normal [facility] TPO Ab Qn 3.3 [IU]/mL [facility] Comment on above: Thyroid Peroxidase A ntibody test is used as an aid in diagnosis of autoimmune thyroid disease. Clinical correlation is required. [facility] THYROID STIMULATING HORMONEo n 08-17-2023 TSH Qn 2.690 m[IU]/L [facility] Comment on above: If the patient [...] Gerber, et al. 2017 Guidelines of the [place] Thyroid Association for the Diagnosis and Management of Thyroid Disease during and the . Thyroid, 2017:27:3:315-389. HCG QUAL UR B/Oon 07-29-2023 Interpretation and review of laboratory results Normal [facility] status Negative neg - pos Theresa torres [facility] Quality Check Yes yes/no [facility] XR HYSTEROSALPINGOGRAMon XR HYSTEROSALPINGOGRAM * * *Final [...] or left fallopian tube. IMPRESSION: Normal hysterosalpingogram. Aircraft Load Controller: DAVIS Transcribe Date/Time: Aug 02 2023 4:22P Dictated by : ADRIANNA BAUMANN MD This examination was interpreted and the report reviewed and electronically signed by: ADRIANNA BAUMANN MD on Aug 02 2023 4:23PM EST [id number] [facility] CNPAlissa 06-10-2023 [facility] Telephone ([facility]) LISSA RIVAS ([id number]) 1995 F Date Time Provider Department 06/10/23 ELSA PUENTES ROCÍO During your visit today, we recorded the following information about you: Elsa Puentes, Arlin 06/14/2023 1:38 PM Addendum Patient name and was confirmed at initiation of discussion. Lissa Iannsusannah's Integrated BRACAnalysis with Humberto through [employer] was positive for a pathogenic variant in [...] population without disease (benign polymorphism). Please see [employer] message for further discussion. CHRISTIE Magdaleno [...] children. Elsa (more content not included)... [facility] CNPN Telephone ([place]) LISSA RIVAS ([id number]) 1995 F Date Time Provider Department 04/23/23 ELSA PUENTES ROCÍO During your visit today, we recorded the following information about you: Elsa Puentes [facility] 05/17/2023 11:29 AM Signed Called patient to [...] NTHL1, PALB2, PDGFRA, PMS2, POLD1, POLE, POT1, PRNDG1Y, PTCH1, PTEN, RAD51C, RAD51D, RB1, RET, SDHA, SDHAF2, SDHB, SDHC, SDHD, SMAD4, SMARCA4, SMARCB1, SMARCE1, STK11, SUFU, WACV803, TP53, TSC1, TSC2, and VHL The Multi-Cancer [...] READY TO MOVE FORWARD. Elsa Puentes MS, [facility] Licensed, Certified Genetic Counselor Xavier Elsa [facility] 05/17/2023 11:29 AM Signed Spoke to Thao [...] detect the familial mutation. 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 The patient was offered SDHA single site mutation analysis through [employer] or self pay Integrated BRACAnalysis with [employer] and SDHA single site mutation analysis through [employer]. After considering the risks, benefits, and limitations, the patient chose to pursue and provided informed consent for the following testing: SELF PAY Integrated BRACAnalysis with [employer] and SDHA single site mutation analysis through [employer]. The [employer] panel includes APC, MICHAEL, AXIN2, BAP1, BARD1, BMPR1A, BRCA1, BRCA2, BRIP1, CDH1, CDK4, CDKN2A, CHEK2, CTNNA1, EGFR, EPCAM, FH, FLCN, GREM1, HOXB13, MEN1, MET, MITF, MLH1, MSH2, MSH3, MSH6, MUTYH, NTHL1, PALB2, PMS2, POLD1, POLE, PTEN, RAD51C, RAD51D, RET, SDHA, SDHB, SDHC, SDHD, SMAD4, STK11, TERT, TP53, TSC1, TSC2, and VHL Juan Pablojuliane looks at genes related to inherited breast, ovarian, pancreatic, prostate, colon, uterine, kidney, lung, endocrine, and stomach cancer, as well as inherited colon polyp and melanoma syndromes. We discussed that an NGS panel can rarely result in an unexpected finding which may or may not be related to the presenting phenotype. We discussed that [employer] may contact the patient by text or phone call regarding billing. The patient should watch for this communication and respond promptly. The patient should contact [facility] directly with any billing questions (ph. [phone]). Elsa Puentes MS, [facility] Licensed, Certified Genetic Counselor Allergies As of Date: 04/23/2023 (No Known Allergies) Date Reviewed: 01/04/2023 Reviewed by: Domenica Coon Ma - Fully Assessed Reason for Visit: Follow Up [171] Primary Visit Diagnosis:Family history of cancer [Z80.9] Other Visit Diagnosis:Family history of gene mutation [Z84.81] Order(s):[facility] TST 1 [SQMISC1] Order #: [id number] FUTURE Prescriptions as of 05/17/2023 - letrozole [...] 04/23/2023 No (more content not included)... Normal [facility] WHIon 02-08-2023 [facility] Vital Signs Date Time Vital Sign Value Performing Clinician Facility 10-23-2024 13:52-0400 Body mass index (BMI) [Ratio] 40.39 kg/m2 [employer] Work Phone: [facility] 10-23-2024 13:52-0400 Body weight 103.42 kg [employer] Work Phone: [facility] 10-23-2024 13:52-0400 Diastolic blood pressure 90 mm[Hg] [employer] Work Phone: [facility] 10-23-2024 13:52-0400 Systolic blood pressure 136 mm[Hg] Saravanan Ahumada DO Work Phone: [facility] 10-23-2024 08:32-0400 Body height 160 cm Vy Corona MD Work Phone: [facility] 10-23-2024 08:32-0400 Body mass index (BMI) [Ratio] 40.35 kg/m2 Vy Corona MD Work Phone: [facility] 10-23-2024 08:32-0400 Body weight 103.33 kg Vy Corona MD Work Phone: [facility] 10-23-2024 08:32-0400 Diastolic blood pressure 81 mm[Hg] Vy Corona MD Work Phone: [facility] 10-23-2024 08:32-0400 Heart rate 93 /min Vy Corona MD Work Phone: [facility] 10-23-2024 08:32-0400 Systolic blood pressure 122 mm[Hg] Vy Corona MD Work Phone: [facility] 10-18-2024 14:18-0400 Body height 160.02 cm Lito Velazquez MD Work Phone: [facility] 10-18-2024 14:18-0400 Body mass index (BMI) [Ratio] 40.1 kg/m2 Lito Velazquez MD Work Phone: [facility] 10-18-2024 14:18-0400 Body weight 102.96 kg Lito Velazquez MD Work Phone: [facility] 10-18-2024 14:18-0400 Diastolic blood pressure 90 mm[Hg] Lito Velazquez MD Work Phone: [facility] 10-18-2024 14:18-0400 Heart rate 105 /min Lito Velazquez MD Work Phone: [facility] 10-18-2024 14:18-0400 Respiratory rate 18 /min Lito Velazquez MD Work Phone: [facility] 10-18-2024 14:18-0400 SaO2% (BldA) [Mass fraction] 98 % Lito Velazquez MD Work Phone: [facility] 10-18-2024 14:18-0400 Systolic blood pressure 130 mm[Hg] Lito Velazquez MD Work Phone: [facility] 10-16-2024 09:03-0400 Body mass index (BMI) [Ratio] 40.61 kg/m2 Saravanan Zita DO Work Phone: [facility] 10-16-2024 09:03-0400 Body weight 103.99 kg Saravanan Zita DO Work Phone: [facility] 10-16-2024 09:03-0400 Diastolic blood pressure 86 mm[Hg] Saravanan Zita DO Work Phone: [facility] 10-16-2024 09:03-0400 Systolic blood pressure 120 mm[Hg] Saravanan Zita DO Work Phone: [facility] 10-11-2024 14:04-0400 Body height 160 cm Alton Rebolledo STEWARD/STEWARDESS SMOKE ROOM-APPLICATIONS INSTRUCTOR Work Phone: [facility] 10-11-2024 14:04-0400 Body mass index (BMI) [Ratio] 40.28 kg/m2 Alton Rebolledo STEWARD/STEWARDESS SMOKE ROOM-APPLICATIONS INSTRUCTOR Work Phone: [facility] 10-11-2024 14:04-0400 Body weight 103.15 kg Alton Rebolledo STEWARD/STEWARDESS SMOKE ROOM-APPLICATIONS INSTRUCTOR Work Phone: [facility] 10-11-2024 14:04-0400 Diastolic blood pressure 79 mm[Hg] Alton Rebolledo STEWARD/STEWARDESS SMOKE ROOM-APPLICATIONS INSTRUCTOR Work Phone: [facility] 10-11-2024 14:04-0400 Heart rate 106 /min Alton Rebolledo STEWARD/STEWARDESS SMOKE ROOM-APPLICATIONS INSTRUCTOR Work Phone: [facility] 10-11-2024 14:04-0400 Systolic blood pressure 127 mm[Hg] Alton Rebolledo STEWARD/STEWARDESS SMOKE ROOM-APPLICATIONS INSTRUCTOR Work Phone: [facility] 10-09-2024 09:20-0400 Body mass index (BMI) [Ratio] 40.3 kg/m2 Saravanan Zita DO Work Phone: [facility] 10-09-2024 09:20-0400 Body weight 103.19 kg Saravanan Zita DO Work Phone: [facility] 10-09-2024 09:20-0400 Diastolic blood pressure 86 mm[Hg] Saravanan Zita DO Work Phone: [facility] 10-09-2024 09:20-0400 Systolic blood pressure 136 mm[Hg] Saravanan Zita DO Work Phone: [facility] 10-02-2024 11:12-0400 Body mass index (BMI) [Ratio] 40.1 kg/m2 Saravanan Zita DO Work Phone: [facility] 10-02-2024 11:12-0400 Body weight 102.69 kg Saravanan Zita DO Work Phone: [facility] 10-02-2024 11:12-0400 Diastolic blood pressure 84 mm[Hg] Saravanan Zita DO Work Phone: [facility] 10-02-2024 11:12-0400 Systolic blood pressure 136 mm[Hg] Saravanan Zita DO Work Phone: [facility] 09-25-2024 13:26-0400 Body mass index (BMI) [Ratio] 39.95 kg/m2 Saravanan Zita DO Work Phone: [facility] 09-25-2024 13:26-0400 Body weight 102.29 kg Saravanan Zita DO Work Phone: [facility] 09-25-2024 13:26-0400 Diastolic blood pressure 80 mm[Hg] Saravanan Zita DO Work Phone: [facility] 09-25-2024 13:26-0400 Systolic blood pressure 130 mm[Hg] Saravanan Zita DO Work Phone: [facility] 09-13-2024 11:47-0400 Body mass index (BMI) [Ratio] 39.59 kg/m2 Saravanan Zita DO Work Phone: [facility] 09-13-2024 11:47-0400 Body weight 101.38 kg Saravanan Zita DO Work Phone: [facility] 09-13-2024 11:47-0400 Diastolic blood pressure 82 mm[Hg] Saravanan Zita DO Work Phone: [facility] 09-13-2024 11:47-0400 Systolic blood pressure 126 mm[Hg] Saravanan Zita DO Work Phone: [facility] 09-12-2024 10:39-0400 Diastolic blood pressure 87 mm[Hg] Ruthann Lavoy PA-C Work Phone: [facility] 09-12-2024 10:39-0400 Systolic blood pressure 130 mm[Hg] Ruthann Lavoy PA-C Work Phone: [facility] 09-12-2024 10:08-0400 Body height 160 cm Ruthann Lavoy PA-C Work Phone: [facility] 09-12-2024 10:08-0400 Body mass index (BMI) [Ratio] 39.57 kg/m2 Ruthann Lavoy PA-C Work Phone: [facility] 09-12-2024 10:08-0400 Body weight 101.33 kg Ruthann Lavoy PA-C Work Phone: [facility] 08-31-2024 15:22-0400 Body height 160 cm Cristiana Zuñiga RN Work Phone: [facility] 08-31-2024 15:22-0400 Body mass index (BMI) [Ratio] 39.5 kg/m2 Cristiana Zuñiga RN Work Phone: [facility] 08-31-2024 15:22-0400 Body weight 101.15 kg Cristiana Zuñiga RN Work Phone: [facility] 08-30-2024 11:46-0400 Body mass index (BMI) [Ratio] 39.4 kg/m2 Saravanan Zita DO Work Phone: [facility] 08-30-2024 11:46-0400 Body weight 100.88 kg Saravanan Zita DO Work Phone: [facility] 08-30-2024 11:46-0400 Diastolic blood pressure 76 mm[Hg] Saravanan Zita DO Work Phone: [facility] 08-30-2024 11:46-0400 Systolic blood pressure 116 mm[Hg] Saravanan Zita DO Work Phone: [facility] 08-16-2024 08:38-0400 Body mass index (BMI) [Ratio] 40.08 kg/m2 Rupal Patel PA Work Phone: [facility] 08-16-2024 08:38-0400 Body weight 102.63 kg Rupal Kinnear PA Work Phone: [facility] 08-16-2024 08:38-0400 Diastolic blood pressure 80 mm[Hg] Rupal Kinnear PA Work Phone: [facility] 08-16-2024 08:38-0400 Systolic blood pressure 114 mm[Hg] Rupal Jorge PA Work Phone: [facility] 07-18-2024 09:20-0400 Body height 160 cm Lito Velazquez MD Work Phone: [facility] 07-18-2024 09:20-0400 Body mass index (BMI) [Ratio] 40.03 kg/m2 Lito Velazquez MD Work Phone: [facility] 07-18-2024 09:20-0400 Body weight 102.51 kg Lito Velazquez MD Work Phone: [facility] 07-18-2024 09:20-0400 Diastolic blood pressure 78 mm[Hg] Lito Velazquez MD Work Phone: [facility] 07-18-2024 09:20-0400 Heart rate 90 /min Lito Velazquez MD Work Phone: [facility] 07-18-2024 09:20-0400 SaO2% (BldA) [Mass fraction] 98 % Lito Velazquez MD Work Phone: [facility] 07-18-2024 09:20-0400 Systolic blood pressure 128 mm[Hg] Lito Velazquez MD Work Phone: [facility] 05-23-2024 16:00-0500 Body height 160 cm Andrew Ferrer DPM Work Phone: [facility] 05-23-2024 16:00-0500 Body mass index (BMI) [Ratio] 38.83 kg/m2 Andrew Ferrer DPM Work Phone: [facility] 05-23-2024 16:00-0500 Body weight 99.43 kg Andrew Ferrer DPM Work Phone: [facility] 03-08-2024 10:25-0500 Body height 160 cm Gabriel Roof DO Work Phone: [facility] 03-08-2024 10:25-0500 Body mass index (BMI) [Ratio] 40.03 kg/m2 Gabriel Roof DO Work Phone: [facility] 03-08-2024 10:25-0500 Body temperature 97.39 [degF] Gabriel Roof DO Work Phone: [facility] 03-08-2024 10:25-0500 Body weight 102.51 kg Gabriel Roof DO Work Phone: [facility] 03-08-2024 10:25-0500 Diastolic blood pressure 90 mm[Hg] Gabriel Roof DO Work Phone: [facility] 03-08-2024 10:25-0500 Systolic blood pressure 128 mm[Hg] Gabriel Roof DO Work Phone: [facility] 02-15-2024 15:12-0500 Body height 160 cm Robles Goldsmith DO Work Phone: [facility] 02-15-2024 15:12-0500 Body mass index (BMI) [Ratio] 38.26 kg/m2 Robles Goldsmith DO Work Phone: [facility] 02-15-2024 15:12-0500 Body weight 97.98 kg Robles Goldsmith DO Work Phone: [facility] 02-15-2024 15:12-0500 Diastolic blood pressure 84 mm[Hg] Robles Goldsmith DO Work Phone: [facility] 02-15-2024 15:12-0500 Systolic blood pressure 136 mm[Hg] Robles Goldsmith DO Work Phone: [facility] 08-17-2023 10:02-0400 Body mass index (BMI) [Ratio] 40.65 kg/m2 Mirta Gallagher MD Work Phone: [facility] 08-17-2023 10:02-0400 Body weight 104.1 kg Mirta Gallagher MD Work Phone: [facility] 08-17-2023 10:02-0400 Diastolic blood pressure 79 mm[Hg] Mirta Gallagher MD Work Phone: [facility] 08-17-2023 10:02-0400 Heart rate 73 /min Mirta Gallagher MD Work Phone: [facility] 08-17-2023 10:02-0400 Systolic blood pressure 129 mm[Hg] Mirta Gallagher MD Work Phone: [facility] 06-26-2022 19:10-0400 Body height 157.48 cm Josefina Kay Other [employer] Other 06-26-2022 19:10-0400 Body mass index (BMI) [Ratio] 40.64 kg/m2 Josefina Kay Other [employer] Other 06-26-2022 19:10-0400 Body weight 100.79 kg Josefina Kay Other [employer] Other 06-26-2022 19:10-0400 Diastolic blood pressure 87 mm[Hg] Josefina Kay Other [employer] Other 06-26-2022 19:10-0400 Respiratory rate 18 /min Josefina Kay Other [employer] Other 06-26-2022 19:10-0400 SaO2% (BldA) [Mass fraction] 98 % Josefina Kay Other [employer] Other 06-26-2022 19:10-0400 Systolic blood pressure 132 mm[Hg] Josefina Kay Other [employer] Other Encounters Encounter Date Encounter Type Care Provider Facility Start: 10-26-2024 End: 10-26-2024 Clinisync Result Encounter Saravanan Zita DO Work Phone: [facility] External [facility] Unsolicited Start: 10-26-2024 End: 10-26-2024 Clinisync Result Encounter Saravanan Zita DO Work Phone: [facility] External [facility] Unsolicited Start: 10-24-2024 End: 10-24-2024 Clinisync Result Encounter Generic External Data Provider [facility] External Department Unsolicited Start: 10-24-2024 End: 10-24-2024 Clinisync Result Encounter Generic External Data Provider [facility] External Department Unsolicited Start: 10-24-2024 End: 10-24-2024 Documentation procedure Yesi Meade APRN-CNM Work Phone: [facility] Start: 10-23-2024 End: 10-23-2024 Bamboo flowsheet Saravanan Zita DO Work Phone: [facility] Start: 10-23-2024 End: 07-28-2025 Bamboo flowsheet Saravanan Zita DO Work Phone: [facility] Start: 10-23-2024 End: 10-23-2024 ambulatory SARAVANAN ZITA Not Available Start: 10-23-2024 End: 10-23-2024 flow sheet Saravanan Zita DO Work Phone: [facility] Comment on above: Third trimester preg talya ([facility]); 36 weeks gestation of ([facility]); induced hypertension, antepartum ([facility]) Start: 10-23-2024 End: 10-23-2024 ambulatory JAYDEN Dieter CORONA [facility] Start: 10-23-2024 End: 10-23-2024 Office outpatient visit 40 minutes Vy Corona MD Work Phone: [facility] Comment on above: 36 weeks gestation o f (Primary Dx); Gestational diabetes requiring insulin; Pre-eclampsia in third trimester; Non-sustained ventricular tachycardia ([facility]) Start: 10-18-2024 End: 10-18-2024 ambulatory Lito Velazquez MD Work Phone: [facility] Work Phone: Start: 10-18-2024 End: 10-18-2024 Patient encounter procedure Kurt Pérez MD -[facility] Card[facility] Work Phone: Start: 10-17-2024 End: 10-17-2024 Clinisync Result Encounter Saravanan Zita DO Work Phone: [facility] External Department Unsolicited Start: 10-17-2024 End: 10-17-2024 Clinisync Result Encounter Saravanan Zita DO Work Phone: [facility] External Department Unsolicited Start: 10-17-2024 End: 10-17-2024 Telephone encounter Nereyda LOMBARDO Work Phone: [facility] Start: 10-16-2024 End: 10-16-2024 Bamboo flowsheet [...] Result Encounter Saravanan Zita DO Work Phone: [facility] External Department Unsolicited Start: 10-11-2024 End: 10-11-2024 Clinisync Result Encounter Saravanan Zita DO Work Phone: [facility] External Department Unsolicited Start: 10-11-2024 End: 10-11-2024 Office outpatient visit 25 minutes Alton Kesha LEWIS-APPLICATIONS INSTRUCTOR Work Phone: [facility] Comment on above: Insulin controlled g estational diabetes mellitus (GDM) in third trimester (Primary Dx) Start: 10-11-2024 End: 10-11-2024 ambulatory ALTON [facility] Start: 10-09-2024 End: 10-09-2024 Bamboo flowsheet Saravanan Zita DO Work Phone: [facility] Start: 10-09-2024 End: 10-09-2024 Bamboo flowsheet Saravanan Zita DO Work Phone: [facility] Start: 10-09-2024 End: 10-09-2024 ambulatory SARAVANAN ZITA Not Available Start: 10-09-2024 End: 10-09-2024 flow sheet Saravanan Zita DO Work Phone: [facility] Comment on above: Third trimester preg talya ([facility]); 34 weeks gestation of ([facility]); Herpes simplex virus type 1 (HSV-1) dermatitis; Insulin controlled gestational diabetes mellitus (GDM) during , antepartum ([facility]) Start: 10-04-2024 End: 10-04-2024 Clinisync Result Encounter Generic External Data Provider [facility] External Department Unsolicited Start: 10-04-2024 End: 10-04-2024 Clinisync Result Encounter Generic External Data Provider [facility] External Department Unsolicited Start: 10-02-2024 End: 10-02-2024 flow sheet Saravanan Zita DO Work Phone: [facility] Comment on above: Herpes simplex (Prim jose manuel Dx); 33 weeks gestation of ([facility]); Encounter for routine care ([facility]); Third trimester ([facility]) Start: 10-02-2024 End: 10-02-2024 ambulatory SARAVANAN ZITA [...] Comment on above: Third trimester preg talya ([facility]); Insulin controlled gestational diabetes mellitus (GDM) during , antepartum ([facility]); 32 weeks gestation of ([facility]) Start: 09-25-2024 End: 09-25-2024 ambulatory SARAVANAN ZITA Not Available Start: 09-20-2024 End: 09-20-2024 Office outpatient visit 25 minutes Alton Rebolledo CARLOS Work Phone: [facility] Comment on above: Insulin controlled g estational diabetes mellitus (GDM) in third trimester (Primary Dx); Gestational diabetes requiring insulin Start: 09-20-2024 End: 09-20-2024 ambulatory ALTON KESHA [facility] Start: 09-18-2024 End: 09-18-2024 Orders Only Maevearisteo Rose [facility] Maternal- Medic ine at [facility] Comment on above: Gestational diabetes requiring [...] 09-14-2024 Non-patient / Non-visit Jassi Fair MD -[facility] Cardiology Work Phone: Start: [...] gestation al diabetes (Primary Dx); Third trimester ([facility]); 31 weeks gestation of ([facility]) Start: 09-12-2024 End: 09-12-2024 Clinisync Result Encounter Saravanan Zita DO Work Phone: [facility] External [facility] Unsolicited Start: 09-12-2024 End: 09-12-2024 Clinisync Result Encounter Saravanan Luo DO Work Phone: [facility] External [facility] Unsolicited Start: 09-12-2024 End: 09-12-2024 Documentation procedure Ruthann THAYER-Arlin Work Phone: [facility] Start: 09-12-2024 End: 09-12-2024 Office outpatient new 45 minutes Ruthann THAYER-C Work Phone: [facility] Comment on above: Insulin controlled g estational diabetes mellitus (GDM) in third trimester; Abnormal liver enzymes; Abnormal genetic test; Gestational diabetes requiring insulin; Elevated blood pressure affecting , antepartum Start: 09-12-2024 End: 09-12-[address] [facility] Start: 09-11-2024 End: 09-11-2024 Telemedicine consultation with patient Mirta Gallagher MD Work Phone: Endocrinology Start: 09-11-2024 End: 09-11-2024 ambulatory Mirta Gallagher MD Work Phone: Endocrinology Comment on above: Monoallelic mutation of SDHA gene (Primary Dx); Gestational diabetes mellitus (GDM) in third trimester, gestational diabetes method of control unspecified (HCC) Start: 09-06-2024 End: 09-06-2024 Orders Only Yesi VAZ Work Phone: [facility] Start: 09-05-2024 End: 09-05-2024 Orders Only Jackson Cruz MD Work Phone: [facility] Comment on above: Monoallelic mutation of SDHA gene (Primary Dx) Start: 09-04-2024 End: 09-04-2024 ambulatory MIRTA GALLAGHER Facility:[facility] Start: 08-31-2024 End: 08-31-2024 ambulatory Cristiana Zuñiga RN Work Phone: [facility] Comment on above: Gestational diabetes mellitus (GDM) in third trimester, gestational diabetes method of control unspecified (Primary Dx) Start: 08-30-2024 End: 08-30-2024 Bamboo flowsheet Saravanan Zita DO Work Phone: [facility] Start: 08-30-2024 End: 08-30-2024 Bamboo flowsheet Saravanan Zita DO Work Phone: [facility] Start: 08-30-2024 End: 08-30-2024 Chart abstracting Scanning Provider External [facility] Start: 08-30-2024 End: 08-30-2024 ambulatory SARAVANAN ZITA [...] encounter procedure Lito Velazquez MD Work Phone: [facility] Work Phone: Start: 08-24-2024 End: 08-24-2024 ambulatory Lito Velazquez MD Work Phone: [facility] Work Phone: Start: 08-24-2024 Non-patient / Non-visit Iveth Ding MD -[facility] Cardiology Work Phone: Start: [...] encounter procedure Lito Velazquez MD Work Phone: [facility] Work Phone: Start: 07-18-2024 End: 07-18-2024 Periodic preventive med est patient 18-39 yrs Lito Velazquez MD Work Phone: [facility] Comment on above: Annual physical [...] 30 minutes Andrew Ferrer DPM Work Phone: [facility] Comment on above: Onychomycosis (Prima [...] End: 04-04-2024 Patient encounter procedure Ortega Morrissey APRN.APPLICATIONS INSTRUCTOR Work Phone: [facility] Comment on above: Progesterone Questio n Start: 2024 End: 2024 Nursing evaluation of patient and report Us Tech 1 [facility] Rej Work Phone: [facility] Comment on above: Supervision of pregn thor with history of infertility, first trimester Start: 2024 End: 04-04-2024 ambulatory Ortega Morrissey STEWARD/STEWARDESS SMOKE ROOM.APPLICATIONS INSTRUCTOR Work Phone: [facility] Start: 03-27-2024 End: 03-27-2024 flow sheet [facility] Comment on above: GA: 6w1d Start: 03-27-2024 End: 03-27-2024 ambulatory SARAVANAN ZITA Not Available Start: 03-17-2024 End: 03-17-2024 ambulatory ORTEGA MORRISSEY Facility:[facility] Start: 03-17-2024 End: 03-17-2024 Patient encounter procedure Ortega Morrissey APRN.CNP Work Phone: [facility] Comment on above: Supervision of pregn thor with history of infertility, first trimester (Primary Dx) Start: 03-17-2024 End: 03-17-2024 Telemedicine consultation with patient Ortega Waterskali CERVANTES Work Phone: [facility] Start: 03-16-2024 End: 03-16-2024 Orders Only Madeleine Orta PA-C Work Phone: [facility] Comment on above: Encounter for pregna ncy test, result positive (Primary Dx) Start: 03-15-2024 End: 03-15-2024 ambulatory ORTEGA MORRISSEY Facility:[facility] Start: 03-13-2024 End: 03-13-2024 ambulatory ORTEGA MORRISSEY Facility:[facility] Start: 03-13-2024 End: 03-13-2024 Telephone encounter Fede Hairston MD Work Phone: [facility] Comment on above: +hpt today/lmp 02/12 skipped treatment this month Start: 03-10-2024 End: 03-10-2024 ambulatory MIRTA GALLAGHER Facility:[facility] Start: 03-08-2024 End: 03-08-2024 Office outpatient new 45 minutes Gabriel R Rosalva DO Work Phone: [facility] Comment on above: Otalgia of both ears (Primary Dx); Temporomandibular joint disorder; Chronic allergic rhinitis; Postnasal drip Start: 03-08-2024 End: 03-08-2024 ambulatory [facility] Start: 02-28-2024 End: 02-28-2024 Telephone encounter [...] Start: 02-23-2024 End: 02-23-2024 ambulatory FEDE HAIRSTON Facility:[facility] Start: 02-23-2024 End: 02-23-2024 Nursing evaluation of patient and report Nurse Gayathri [facility] Rej [facility] Comment on above: Female infertility Start: 02-21-2024 End: 02-21-2024 Telephone encounter Fede Hairston MD Work Phone: [facility] Comment on above: needs [facility] at [facility] Start: 02-17-2024 End: 02-17-2024 ambulatory FEDE HAIRSTON Facility:[facility] Start: 02-17-2024 End: 02-17-2024 Office outpatient [...] Start: 01-14-2024 End: 01-17-2024 ambulatory MIRTA GALLAGHER Facility:[facility] Start: 12-31-2023 End: 12-31-2023 [facility] Start: 12-31-2023 End: 12-31-2023 Patient encounter procedure Ortega Morrissey APRN.CNP Work Phone: [facility] Comment on above: Encounter for artifi cial insemination (Primary Dx) Start: 12-21-2023 End: 12-21-[address] [facility] Facility:[facility] Start: 12-21-2023 End: 12-21-2023 Nursing evaluation of patient and report Fede Hairston MD Work Phone: [facility] Comment on above: Female infertility Start: 12-13-2023 End: 12-13-2023 Telephone encounter Fede Hairston MD Work Phone: [facility] Comment on above: LMP 12/12/23/ set up monitored cycle; Patient Update Start: 11-28-2023 End: 11-28-2023 ambulatory DESHAWN RIOJAS Facility:[facility] Start: 11-28-2023 End: 11-28-2023 Patient encounter procedure Deshawn Roijas MD Work Phone: [facility] Comment on above: Female infertility ( Primary Dx) Start: 11-23-2023 End: 11-23-2023 ambulatory Ortegajamie House APPLICATIONS INSTRUCTOR Work Phone: [facility] Start: 11-23-2023 End: 11-23-2023 Patient encounter procedure Ortegajamie Morrissey STEWARD/STEWARDESS SMOKE ROOM.APPLICATIONS INSTRUCTOR Work Phone: [facility] Comment on above: IUI Round 2 Start: 11-22-2023 End: 11-22-2023 ambulatory ORTEGA AMYKALI Facility:[facility] Start: 11-22-2023 End: 11-22-2023 Patient encounter procedure Ortegajamie Morrissey APRN.APPLICATIONS INSTRUCTOR Work Phone: [facility] Comment on above: Procreation manageme nt investigation and testing (Primary Dx) Start: 11-22-2023 End: 11-22-2023 Telemedicine consultation with patient Ortega Morrissey DEBBIE.APPLICATIONS INSTRUCTOR Work Phone: [facility] Start: 11-22-2023 End: 11-22-2023 ambulatory [facility] Facility:[facility] Start: 11-22-2023 End: 11-22-2023 ambulatory [facility] Facility:[facility] Start: 11-22-2023 End: 11-22-2023 Nursing evaluation of patient and report Nurse Gayathri [facility] Rej [facility] Comment on above: Female infertility Start: 11-18-2023 End: 11-18-2023 ambulatory Ortega Morrissey APRN.APPLICATIONS INSTRUCTOR Work Phone: [facility] Start: 11-18-2023 End: 11-18-2023 Patient encounter procedure Ortega Waterskali LEWIS.APPLICATIONS INSTRUCTOR Work Phone: [facility] Comment on above: IUI Medication quest ion Start: 11-12-2023 End: 11-15-2023 Telephone encounter Self [facility] Comment on above: iui 10/25 , cd 1 11/11 Start: 10-26-2023 End: 10-26-2023 ambulatory Ortega Morrissey APRN.CNP Work Phone: [facility] Start: 10-26-2023 End: 10-26-2023 Patient encounter procedure Ortega Morrissey APRN.APPLICATIONS INSTRUCTOR Work Phone: [facility] Comment on above: Encounter for artifi cial insemination (Primary Dx) Progesterone Questio n Start: 10-22-2023 End: 10-22-2023 Nursing evaluation of patient and report Nurse Gayathri [facility] Greta [facility] Comment on above: Female infertility Start: 10-22-2023 End: 10-22-2023 ambulatory ORTEGA MORRISSEY Facility:[facility] Start: 10-20-2023 Telephone encounter Self Rep [...] gene (Primary Dx) Start: 07-29-2023 E-mail encounter melinda m caregiver Fede Hairston MD Work Phone: [facility] Start: 07-29-2023 Patient encounter procedure Fede Hairston MD Work Phone: [facility] Comment on above: Instructions for [facility] Start: 07-29-2023 ambulatory FEDE HAIRSTON Facility:[facility] Start: 07-29-2023 End: 07-29-2023 Subsequent hospital visit by physician tammi [facility] Radiology Gastrointestinal Comment on above: Fertility testing [Z 31.41] Start: 07-29-2023 End: 07-29-2023 Nursing evaluation of patient and report Nurse Gayathri [facility] Comment on above: Encounter for fertil ity testing (Primary Dx); Pre-procedure lab exam Start: 07-29-2023 End: 07-29-2023 Patient encounter status Nurse Gayathri [facility] Start: 06-16-2023 Telephone encounter Fina pérez [facility] Work Phone: [facility] Comment on above: Chute Boss - O ther (Hereditary Paraganglioma- Pheochromocytoma Syndrome clinic) Start: 06-10-2023 Telephone encounter Elsa altman [facility] Work Phone: [facility] Comment on above: Results (Genetic) Start: 05-25-2023 Telephone encounter Fede Hairston MD Work Phone: [facility] Comment on above: refill letrozol/cycl e to start in next week Start: 04-23-2023 Telephone encounter Elsa altman [facility] Work Phone: [facility] Comment on above: Follow Up Start: 04-21-2023 End: 04-21-2023 ambulatory FEDE HAIRSTON Facility:[facility] Start: 04-21-2023 End: 04-21-2023 ambulatory Elsa Puentes [facility] Work Phone: [facility] Comment on above: Family history of br east cancer (Primary Dx); Family history of prostate cancer Start: 04-21-2023 End: 04-21-2023 Telemedicine consultation with patient Elsa Puentes [facility] Work Phone: [facility] Start: 04-07-2023 End: 04-07-2023 ambulatory Fede Hairston MD Work Phone: [facility] Comment on above: PCOS (polycystic ova kwadwo syndrome) (Primary Dx); Fertility testing Start: 04-07-2023 End: 04-07-2023 Telemedicine consultation with patient Fede Hairston MD Work Phone: [facility] Start: 02-08-2023 End: 02-08-2023 ambulatory Fede Hairston MD Work Phone: [facility] Start: 02-08-2023 End: 02-08-2023 Patient encounter procedure Fede Hairston MD Work Phone: [facility] Start: 02-04-2023 Telephone encounter Fede Hairston MD Work Phone: [facility] Comment on above: started letrozole Start: 06-26-2022 End: 06-26-2022 ambulatory Josefina Kay Other [employer] Other Start: 06-26-2022 Office outpatient visit 15 minutes Josefina Kay [facility] Start: 12-05-2019 Patient encounter procedure [facility] Facility:[facility]1 Procedures Date Procedure Procedure Detail Performing Clinician Start: 10-26-2024 TBH TOTAL PROTEIN 24 HOUR URINE Saravanan Zita DO Work Phone: Start: 10-24-2024 US OB BPP W NON-STRESS Saravanan Zita DO Work Phone: Start: 10-24-2024 ALL CBC WITH AUTO DIFF Saravanan Zita DO Work Phone: Start: 10-23-2024 Urnls dip stick/tablet rgnt non-auto w/o micrscp Saravanan Zita DO Work Phone: Start: 10-17-2024 US OB BPP W NON-STRESS Saravanan Zita DO Work Phone: Start: 10-16-2024 ALL CBC WITH AUTO DIFF Selina Janiya N P Work Phone: Start: 10-16-2024 Urnls dip [...] dip stick/tablet rgnt non-auto w/o micrscp Saravanan Ziat DO Work Phone: Start: 09-27-2024 US OB BPP W NON-STRESS Generic External Data Provider Start: 09-25-2024 Urnls dip stick/tablet rgnt non-auto w/o micrscp Saravanan Zita DO Work Phone: Start: 09-14-2024 [facility] TOTAL PROTEIN 24 HOUR URINE Saravanan Ahumada DO Work Phone: Start: 09-13-2024 Urnls dip stick/tablet rgnt non-auto w/o micrscp Selina Denson NP Work Phone: Start: 09-12-2024 [facility] UA (CLEAN/CATCH) LABORER LANDSCAPE/MICRO IF IND. Saravanan Ahumada DO Work Phone: Start: 09-12-2024 Blood count complete automated Ruthann THAYER-C Work Phone: Start: 09-12-2024 Urine albumin quantitative [...] after 1st trimest 1/ gestation Ortega Morrissey APRN.APPLICATIONS INSTRUCTOR Work Phone: Start: 03-27-2024 Drug scrn 1+ class nonchromo Not In System Ref Prov Start: 02-23-2024 Us pelvic nonobstetric image dcmtn limited/f/u Ortega Morrissey APRN.APPLICATIONS INSTRUCTOR Work Phone: Start: 02-15-2024 Smr prim src wet mount nfct agt Robles Goldsmith DO Work Phone: Start: 02-15-2024 APTIMA MULTITEST VAGINAL Robles kenny DO Work Phone: Start: 12-21-2023 Us pelvic nonobstetric image dcmtn limited/f/u Ortega Mindzora STEWARD/STEWARDESS SMOKE ROOM.APPLICATIONS INSTRUCTOR Work Phone: Start: 11-22-2023 Us pelvic nonobstetric image dcmtn limited/f/u Ortega Mindzora STEWARD/STEWARDESS SMOKE ROOM.APPLICATIONS INSTRUCTOR Work Phone: Start: 10-22-2023 Us pelvic nonobstetric image dcmtn limited/f/u Ortega Mindzora STEWARD/STEWARDESS SMOKE ROOM.APPLICATIONS INSTRUCTOR Work Phone: Start: 07-29-2023 Urine test visual color cmprsn meths Ortega Waterszora STEWARD/STEWARDESS SMOKE ROOM.CNM Work Phone: Start: 02-08-2023 Us pelvic nonobstetric real-time image complete Fede Hairston MD Work Phone: Plan of Treatment Date Care Activity Detail Author Start: 2070 RSV Vaccine (1 - 1-dose 75+ series) RSV Vaccine (1 - 1-dose 75+ series) [facility] Start: 2045 Zoster Vaccines (1 of 2) Zoster Vaccines (1 of 2) [facility] Start: 06-26-2032 DTaP,Tdap and Td Vaccines (7 - Td or Tdap) DTaP,Tdap and Td Vaccines (7 - Td or Tdap) [facility] Start: 06-26-2032 DTaP/Tdap/Td Vaccines (7 - Td or Tdap) DTaP/Tdap/Td Vaccines (7 - Td or Tdap) [facility] Start: 06-26-2032 Urine microalbumin profile DTaP,Tdap,Td Vaccine (7 - Td or Tdap) [facility] Start: 06-20-2027 Screening for malignant neoplasm of cervix Pap Smear [facility] Start: 10-23-2025 Adult BMI Screening Adult BMI Screening [facility] Start: 10-23-2025 Tobacco Screening Tobacco Screening [facility] Start: 10-11-2025 Adult BMI Screening Adult BMI Screening [facility] Start: 10-11-2025 Tobacco Screening Tobacco Screening [facility] Start: 09-12-2025 Adult BMI Screening Adult BMI Screening [facility] Start: 09-12-2025 Tobacco Screening Tobacco Screening [facility] Start: 08-31-2025 Adult BMI Screening Adult BMI Screening [facility] Start: 07-24-2025 End: 07-24-2025 Patient encounter procedure [facility] Start: 07-18-2025 End: 10-17-2025 CBC W Auto Differential panel - Blood CBC and differential Lab Routine Annual physical exam Expected: 07/18/2025 (Approximate), Expires: 10/17/2025 [facility] Comment on above: Expected: 07/18/2025 [...] physical exam Expected: 07/18/2025 (Approximate), Expires: 10/17/2025 [facility] Comment on above: Expected: 07/18/2025 (Approximate), Expi res: 10/17/2025 Start: 12-11-2024 End: 12-11-2024 ambulatory 12/11/2024 8:50 AM EDT Visit [facility] [address] [place] [phone] Saravanan Ahumada DO [address] [place] [address] [facility] Start: 11-27-2024 Influenza vaccination [facility] Start: 10-23-2024 End: 10-23-2025 Alanine aminotransferase [Enzymatic activity/volume] in Serum or Plasma ALT Lab Routine 36 weeks gestation of ([facility]) induced hypertension, antepartum ([facility]) Expected: 10/23/2024 (Approximate), Expires: 10/23/2025 [facility] Comment on above: Expected: 10/23/2024 (Approximate), Expi res: 10/23/2025 Start: 10-23-2024 End: 10-23-2025 Aspartate aminotransferase [Enzymatic activity/volume] in Serum or Plasma AST Lab Routine 36 weeks gestation of ([facility]) induced hypertension, antepartum ([facility]) Expected: 10/23/2024 (Approximate), Expires: 10/23/2025 [facility] Comment on above: Expected: 10/23/2024 (Approximate), Expi res: 10/23/2025 Start: 10-23-2024 End: 10-23-2025 CBC W Auto Differential panel - Blood CBC and differential Lab Routine 36 weeks gestation of ([facility]) induced hypertension, antepartum ([facility]) Expected: 10/23/2024 (Approximate), Expires: 10/23/2025 [facility] Comment on above: Expected: 10/23/2024 (Approximate), Expi res: 10/23/2025 Start: 10-23-2024 End: 10-23-2025 Creatinine [Mass/volume] in Serum or Plasma Creatinine Lab Routine 36 weeks gestation of ([facility]) induced hypertension, antepartum ([facility]) Expected: 10/23/2024 (Approximate), Expires: 10/23/2025 [facility] Comment on above: Expected: 10/23/2024 (Approximate), Expi res: 10/23/2025 Start: 10-23-2024 End: 10-23-2025 CULTURE, GROUP B STREP WITH SUSCEPTIBLITY CULTURE, GROUP B STREP WITH SUSCEPTIBLITY Lab Routine Third trimester ([facility]) Expected: 10/23/2024, Expires: 10/23/2025 [facility] Work Phone: Comment on above: Expected: 10/23/2024, Expires: Start: 10-23-2024 End: 10-23-2025 Lactate dehydrogenase [Enzymatic activity/volume] in Serum or Plasma by Lactate to pyruvate reaction Lactate dehydrogenase Lab Routine 36 weeks gestation of ([facility]) induced hypertension, antepartum ([facility]) Expected: 10/23/2024, Expires: 10/23/2025 [facility] Comment on above: Expected: 10/23/2024, Expires: Start: 10-23-2024 End: 10-23-2025 Protein, urine, 24 hour Protein, urine, 24 hour Lab Routine 36 weeks gestation of ([facility]) induced hypertension, antepartum ([facility]) Expected: 10/23/2024 (Approximate), Expires: 10/23/2025 [facility] Comment on above: Expected: 10/23/2024 (Approximate), Expi res: 10/23/2025 Start: 10-23-2024 End: 10-23-2025 Pt and ptt Pt and ptt Lab Routine 36 weeks gestation of ([facility]) induced hypertension, antepartum ([facility]) Expected: 10/23/2024, Expires: 10/23/2025 [facility] Comment on above: Expected: 10/23/2024, Expires: Start: 10-23-2024 End: 10-23-2025 Urate [Mass/volume] in Serum or Plasma Uric acid Lab Routine 36 weeks gestation of ([facility]) induced hypertension, antepartum ([facility]) Expected: 10/23/2024 (Approximate), Expires: 10/23/2025 [facility] Comment on above: Expected: 10/23/2024 (Approximate), Expi res: 10/23/2025 Start: 10-23-2024 End: 10-23-2025 Urea nitrogen [Mass/volume] in Serum or Plasma BUN Lab Routine 36 weeks gestation of ([facility]) induced hypertension, antepartum ([facility]) Expected: 10/23/2024, Expires: 10/23/2025 [facility] Comment on above: Expected: 10/23/2024, Expires: Start: 10-23-2024 End: 10-23-2024 Patient encounter procedure 10/23/2024 1:30 PM EDT Routine [facility] [address] [place] [phone] Saravanan Ahumada DO [address] [place] [address] [facility] Start: 10-23-2024 End: 10-23-2024 Patient encounter procedure 10/23/2024 8:30 AM EDT Office Visit Maternal- Medicine at [facility] [address] [place] [address] Vy Corona MD [address], [address] [place] [address] [facility]- Medicine at [facility] Start: 10-16-2024 End: 10-16-2025 Alanine aminotransferase [Enzymatic activity/volume] in Serum or Plasma ALT Lab Routine induced hypertension, antepartum ([facility]) Expected: 10/16/2024 (Approximate), Expires: 10/16/2025 [facility] Comment on above: Expected: 10/16/2024 (Approximate), Expi res: 10/16/2025 Start: 10-16-2024 End: 10-16-2025 Aspartate aminotransferase [Enzymatic activity/volume] in Serum or Plasma AST Lab Routine induced hypertension, antepartum ([facility]) Expected: 10/16/2024 (Approximate), Expires: 10/16/2025 [facility] Comment on above: Expected: 10/16/2024 (Approximate), Expi res: 10/16/2025 Start: 10-16-2024 End: 10-16-2025 CBC W Auto Differential panel - Blood CBC and differential Lab Routine induced hypertension, antepartum ([facility]) Expected: 10/16/2024 (Approximate), Expires: 10/16/2025 [facility] Comment on above: Expected: 10/16/2024 (Approximate), Expi res: 10/16/2025 Start: 10-16-2024 End: 10-16-2025 Creatinine [Mass/volume] in Serum or Plasma Creatinine Lab Routine induced hypertension, antepartum ([facility]) Expected: 10/16/2024 (Approximate), Expires: 10/16/2025 [facility] Work Phone: Comment on above: Expected: 10/16/2024 (Approximate), Expi res: 10/16/2025 Start: 10-16-2024 End: 10-16-2025 Lactate dehydrogenase [Enzymatic activity/volume] in Serum or Plasma by Lactate to pyruvate reaction Lactate dehydrogenase Lab Routine induced hypertension, antepartum ([facility]) Expected: 10/16/2024, Expires: 10/16/2025 [facility] Comment on above: Expected: 10/16/2024, Expires: Start: 10-16-2024 End: 10-16-2025 Pt and ptt Pt and ptt Lab Routine induced hypertension, antepartum ([facility]) Expected: 10/16/2024, Expires: 10/16/2025 [facility] Comment on above: Expected: 10/16/2024, Expires: Start: 10-16-2024 End: 10-16-2025 Urate [Mass/volume] in Serum or Plasma Uric acid Lab Routine induced hypertension, antepartum ([facility]) Expected: 10/16/2024 (Approximate), Expires: 10/16/2025 [facility] Comment on above: Expected: 10/16/2024 (Approximate), Expi res: 10/16/2025 Start: 10-16-2024 End: 10-16-2025 Urea nitrogen [Mass/volume] in Serum or Plasma BUN Lab Routine induced hypertension, antepartum ([facility]) Expected: 10/16/2024, Expires: 10/16/2025 [facility] Comment on above: Expected: 10/16/2024, Expires: Start: 10-16-2024 End: 10-16-2024 Patient encounter procedure [facility] at [facility] Comment on above: Arrived Start: 10-11-2024 End: 10-11-2024 Patient encounter procedure 10/11/2024 2:00 PM EDT Office Visit Maternal- Medicine at [facility] [address] [facility] [place] [address] Alton Rebolledo, STEWARD/STEWARDESS SMOKE ROOM-APPLICATIONS INSTRUCTOR [address] [facility] [place] [address] M[facility]- Medicine at [facility] Start: 10-09-2024 End: 10-09-2024 Patient encounter procedure 10/09/2024 9:00 AM EDT Routine [facility] [address] [place] [phone] Saravanan Ahumada, DO [address] [place] [address] [facility] Start: 10-02-2024 End: 10-02-2024 Patient encounter procedure 10/02/2024 11:00 AM EDT Routine [facility] [address] [place] [address] Saravanan Ahumada, DO [address] [place] [address] [facility] Start: 10-02-2024 End: 10-02-2024 Professional / ancillary services management 10/02/2024 10:30 AM EDT Ancillary Procedure [facility] [address] [place] [address] [facility] Start: 09-25-2024 End: 09-25-2024 Patient encounter procedure 09/25/2024 1:00 PM EDT Routine [facility] [address] [place] [phone] Saravanan Ahumada, DO [address] [place] [address] Arrived [facility] Comment on above: Arrived Start: 09-20-2024 End: 09-20-2024 Telemedicine consultation with patient 09/20/2024 11:00 AM EDT Telemedicine Maternal- Medicine at [facility] [address] [place] [address] [place], STEWARD/STEWARDESS SMOKE ROOM-APPLICATIONS INSTRUCTOR [address] [place] [address] M[facility]- Medicine at [facility] Start: 09-13-2024 End: 03-15-2025 US biophysical profile w non stress test US biophysical profile w non stress test Imaging Routine History of gestational diabetes Expected: 09/13/2024 (Approximate), Expires: 03/15/2025 [facility] Work Phone: Comment on above: Expected: 09/13/2024 (Approximate), Expi res: 03/15/2025 Start: 09-13-2024 End: 01-13-2025 US for US OB follow up transabdominal approach Imaging Routine History of gestational diabetes Expected: 09/13/2024, Expires: 01/13/2025 [facility] Comment on above: Expected: 09/13/2024, Expires: Start: 09-13-2024 End: 09-13-2024 Patient encounter procedure 09/13/2024 11:30 AM EDT Routine [facility] [address] [facility] [place] [address] Saravanan Ahumada, DO [address] [place] [address] [facility] Start: 09-11-2024 End: 12-11-2024 METANEPHRINES, FREE PLASMA METANEPHRINES, FREE PLASMA Lab Routine Monoallelic mutation of SDHA gene Expected: 09/11/2024, Expires: 12/11/2024 [facility] Work Phone: Comment on above: Expected: 09/11/2024, Expires: Start: 09-11-2024 End: 09-11-2024 ambulatory 09/11/2024 9:00 AM EDT [facility] [address] [place] [address] Mirta Gallagher MD [address] [place] [address] Monoallelic mutation of SDHA gene Endocrinology Comment on above: Monoallelic mutation of SDHA gene Start: 09-06-2024 End: 09-06-2024 Professional / ancillary services management 09/06/2024 1:30 PM EDT Ancillary Procedure [facility] [address] [place] [phone] [facility] Start: 09-05-2024 End: 09-05-2024 ambulatory 09/05/2024 2:00 PM EDT Results Only [facility] [address] [address] [place] [address] SDHA [facility] [address] Comment on above: SDHA Start: 09-05-2024 End: 09-05-2024 Patient encounter procedure 09/05/2024 1:45 PM EDT Office Visit [facility] [address] [place] [address] Мария Laboy MD [address] [place] [address] Monoallelic mutation of SDHA gene [facility] Comment on above: Monoallelic mutation of SDHA gene Start: 08-31-2024 End: 08-31-2024 ambulatory 08/31/2024 1:30 PM EDT Support Visit Maternal- Medicine at [facility] [address] [place] [phone] Cristiana Zuñiga RN [address] [facility], [address] [place] [address] Nereyda Zheng LD [address] [place] [address] M[facility]- Medicine at [facility] Start: 08-30-2024 End: 08-30-2024 Patient encounter procedure 08/30/2024 11:20 AM EDT Routine [facility] [address] [place] [phone] Saravanan Ahumada, DO [address] [place] [address] [facility] Start: 08-16-2024 End: 08-16-2024 [...] Polycystic ovaries Expected: 07/18/2024 (Approximate), Expires: 10/17/2024 [facility] Comment on above: Expected: 07/18/2024 (Approximate), Expi res: 10/17/2024 Start: 07-18-2024 End: 10-17-2024 US Heart Transthoracic Transthoracic echo (TTE) complete Echocardiography Routine Palpitations Murmur Expected: 07/18/2024 (Approximate), Expires: 10/17/2024 [facility] Comment on above: Expected: 07/18/2024 (Approximate), Expi res: 10/17/2024 Start: 07-18-2024 End: 07-18-2024 Patient encounter procedure 07/18/2024 9:15 AM EDT Office Visit [facility] [address] [place] [phone] Lito Velazquez MD [address] [place] [address] [facility] Start: 07-17-2024 End: 07-17-2025 CBC panel - Blood by Automated count CBC Lab Routine Diabetes mellitus screening Expected: 07/17/2024 (Approximate), Expires: 07/17/2025 [facility] Work Phone: Comment on above: Expected: 07/17/2024 (Approximate), Expi res: 07/17/2025 Start: 07-17-2024 End: 07-17-2025 Measurement of glucose 1 hour after glucose challenge for glucose tolerance test Glucose tolerance, 1 hour Lab Routine Diabetes mellitus screening Expected: 07/17/2024 (Approximate), Expires: 07/17/2025 [facility] Comment on above: Expected: 07/17/2024 (Approximate), Expi res: 07/17/2025 Start: 06-19-2024 End: 06-19-2024 Patient encounter procedure [facility] Start: 05-23-2024 End: 05-23-2024 Patient encounter procedure 05/23/2024 4:00 PM EST Office Visit [facility] [address] [place] [phone] Andrew Ferrer, DPM [address] [place] [address] [facility] Start: 05-22-2024 End: 07-20-2024 Alpha fetoprotein, maternal Alpha fetoprotein, maternal Lab Routine Second trimester 14 weeks gestation of Expected: 05/22/2024 (Approximate), Expires: 07/20/2024 [facility] Work Phone: Comment on above: Expected: 05/22/2024 (Approximate), Expi res: 07/20/2024 Start: 05-22-2024 End: 05-22-2025 US Pelvis transvaginal US OB transvaginal Imaging Routine Spotting in Expected: 05/22/2024, Expires: 05/22/2025 [facility] Comment on above: Expected: 05/22/2024, Expires: Start: 05-22-2024 End: 05-22-2024 Patient encounter procedure [facility] Comment on above: Arrived Start: 05-01-2024 End: 05-01-2024 ambulatory 05/01/2024 3:15 PM EST Initial [facility] [address] [phone] Manju Alford DO [address] [address] [facility] Start: 04-21-2024 End: 04-21-2025 ABO/Rh ABO/Rh Lab Routine Missed menses , unspecified gestational age Expected: 04/21/2024 (Approximate), Expires: 04/21/2025 [facility] Comment on above: Expected: 04/21/2024 (Approximate), Expi res: 04/21/2025 Start: 04-21-2024 End: 04-21-2025 Blood type and Indirect antibody screen panel - Blood Type and screen Lab Routine Missed menses , unspecified gestational age Expected: 04/21/2024 (Approximate), Expires: 04/21/2025 [facility] Comment on above: Expected: 04/21/2024 (Approximate), Expi res: 04/21/2025 Start: 04-21-2024 End: 04-21-2025 Drugs of abuse panel - Urine by Screen method Rapid drug screen, urine Lab Routine , unspecified gestational age Encounter for supervision of normal first in first trimester Expected: 04/21/2024 (Approximate), Expires: 04/21/2025 [facility] Comment on above: Expected: 04/21/2024 (Approximate), Expi res: 04/21/2025 Start: 04-20-2024 End: 04-20-2025 US Pelvis transvaginal US OB transvaginal Imaging Routine Missed menses Expected: 04/20/2024, Expires: 04/20/2025 [facility] Work Phone: Comment on above: Expected: 04/20/2024, Expires: Start: 04-12-2024 End: 04-12-2024 Professional / ancillary services management 04/12/2024 4:00 PM EST Ancillary Procedure [facility] [address] [address] [facility] Start: 2024 End: 2024 Nursing evaluation of patient and report 2024 11:10 AM EST Nurse Visit [facility]roductive Endocrinology Infertility [address] [place] [address] ob scan [facility] Comment on above: ob scan Start: 03-30-2024 End: 03-30-2024 Patient encounter procedure 03/30/2024 12:40 PM EST [facility] [address] [place], [place] [phone] Cira Garcia V, MD [address] [place] [address] Weight management Endocrinology Comment on above: Weight management Start: 03-27-2024 End: 03-27-2025 Bacteria identified in Urine by Culture Urine culture Microbiology Routine Encounter for supervision of normal first in first trimester Expected: 03/27/2024 (Approximate), Expires: 03/27/2025 [facility] Comment on above: Expected: 03/27/2024 (Approximate), Expi res: 03/27/2025 Start: 03-27-2024 End: 03-27-2025 Blood type and Indirect antibody screen panel - Blood Type and screen Lab Routine Encounter for supervision of normal first in first trimester Expected: 03/27/2024 (Approximate), Expires: 03/27/2025 [facility] Comment on above: Expected: 03/27/2024 (Approximate), Expi res: 03/27/2025 Start: 03-27-2024 End: 03-27-2025 CBC W Auto Differential panel - Blood CBC and differential Lab Routine Encounter for supervision of normal first in first trimester Expected: 03/27/2024 (Approximate), Expires: 03/27/2025 [facility] Comment on above: Expected: 03/27/2024 (Approximate), Expi res: 03/27/2025 Start: 03-27-2024 End: 03-27-2025 DRUG SCREEN 17 W/CONF, UR DRUG SCREEN 17 W/CONF, UR Lab Routine Encounter for supervision of normal first in first trimester Encounter for drug screening Expected: 03/27/2024 (Approximate), Expires: 03/27/2025 [facility] Comment on above: Expected: 03/27/2024 (Approximate), Expi res: 03/27/2025 Start: 03-27-2024 End: 03-27-2025 Hepatitis B virus surface Ag [Presence] in Serum or Plasma by Immunoassay Hepatitis B surface antigen Lab Routine Encounter for supervision of normal first in first trimester Expected: 03/27/2024 (Approximate), Expires: 03/27/2025 [facility] Comment on above: Expected: 03/27/2024 (Approximate), Expi res: 03/27/2025 Start: 03-27-2024 End: 03-27-2025 Hepatitis C virus Ab [Presence] in Serum or Plasma by Immunoassay Hepatitis C antibody Lab Routine Encounter for supervision of normal first in first trimester Expected: 03/27/2024 (Approximate), Expires: 03/27/2025 [facility] Comment on above: Expected: 03/27/2024 (Approximate), Expi res: 03/27/2025 Start: 03-27-2024 End: 03-27-2025 HIV-1/HIV-2 antigen/antibody combination immunoassay HIV-1 and HIV-2 antibodies Lab Routine Encounter for supervision of normal first in first trimester Expected: 03/27/2024 (Approximate), Expires: 03/27/2025 [facility] Comment on above: Expected: 03/27/2024 (Approximate), Expi res: 03/27/2025 Start: 03-27-2024 End: 03-27-2025 Reagin Ab [Presence] in Serum by RPR RPR Lab Routine Encounter for supervision of normal first in first trimester Expected: 03/27/2024 (Approximate), Expires: 03/27/2025 [facility] Comment on above: Expected: 03/27/2024 (Approximate), Expi res: 03/27/2025 Start: 03-27-2024 End: 03-27-2025 Rubella antibody, IgG Rubella antibody, IgG Lab Routine Encounter for supervision of normal first in first trimester Expected: 03/27/2024 (Approximate), Expires: 03/27/2025 [facility] Comment on above: Expected: 03/27/2024 (Approximate), Expi res: 03/27/2025 Start: 03-27-2024 End: 03-27-2025 Urinalysis complete panel - Urine Urinalysis with microscopic Lab Routine Encounter for supervision of normal first in first trimester Expected: 03/27/2024 (Approximate), Expires: 03/27/2025 [facility] Work Phone: Comment on above: Expected: 03/27/2024 (Approximate), Expi res: 03/27/2025 Start: 03-17-2024 End: 03-17-2025 OBSTETRIC ULTRASOUND WHI OBSTETRIC ULTRASOUND WHI Anc Imaging Routine Supervision of with history of infertility, first trimester Expected: 03/17/2024, Expires: 03/17/2025 [facility] Work Phone: Comment on above: Expected: 03/17/2024, Expires: Start: 03-17-2024 End: 03-17-2024 Patient encounter procedure 03/17/2024 2:00 PM EST [facility] Reproductive Endocrinology Infertility [id number] [facility] [place] [address] [place], DEBBIE.APPLICATIONS INSTRUCTOR [address] [facility] [place] [address] new preg [facility]roductive Endocrinology Infertility Comment on above: new preg Start: 03-16-2024 End: 06-15-2024 Choriogonadotropin.beta subunit [Units/volume] in Serum or Plasma HCG QUANTITATIVE Lab Routine Encounter for test, result positive Expected: 03/16/2024, Expires: 06/15/2024 [facility] Work Phone: Comment on above: Expected: 03/16/2024, Expires: 5 Start: 03-15-2024 End: 03-15-2024 Patient encounter procedure 03/15/2024 3:45 PM EST Office Visit [facility] [address] [place] [address] [place] [address] lab [facility] Comment on above: lab Start: 02-28-2024 End: 05-29-2024 Progesterone [Mass/volume] in Serum or Plasma PROGESTERONE Lab Routine Female infertility Expected: 02/28/2024, Expires: 05/29/2024 [facility] Work Phone: Comment on above: Expected: 02/28/2024, Expires: Start: 02-26-2024 End: 02-26-2024 Patient encounter procedure 02/26/2024 6:00 PM EST Office Visit [facility] [address] [place] [address] follicle us -benefit check [facility] Comment on above: follicle us -benefit check Start: 02-23-2024 End: 02-23-2024 Nursing evaluation of patient and report 02/23/2024 7:00 AM EST Nurse Visit [facility] [address] [place] [address] Greta Nurse Gayathri [facility] [address] [place] [address] midcycle [facility] Comment on above: midcycle Start: 02-17-2024 End: 02-17-2024 Follow-up encounter 02/17/2024 9:30 AM EST [facility] [address] [place] [address] Fede Hairston MD [address] [place], [place] [id number] follow up [facility]ertility Comment on above: follow up Start: 02-15-2024 End: 02-14-2025 FOLLICULAR US WHI FOLLICULAR US WHI Anc Imaging Routine Female infertility Expected: 02/15/2024, Expires: 02/14/2025 [facility] Work Phone: Comment on above: Expected: 02/15/2024, Expires: Start: 01-19-2024 End: 01-19-2024 Patient encounter procedure 01/19/2024 6:00 PM EDT Office Visit [facility] [address] [place] [address] iui-benefit check [facility] Comment on above: iui-benefit check Start: 12-13-2023 End: 12-12-2024 FOLLICULAR US WHI FOLLICULAR US WHI Anc Imaging Routine Female infertility Expected: 12/13/2023, Expires: 12/12/2024 [facility] Work Phone: Comment on above: Expected: 12/13/2023, Expires: Start: 11-28-2023 Covid-19 Vaccine ( season) Covid-19 Vaccine () [facility] Start: 11-28-2023 Covid-19 Vaccine (1 - 2024-25 season) Covid-19 Vaccine ( season) [facility] Start: 11-28-2023 Influenza vaccination [facility] Start: 11-22-2023 End: 11-22-2023 Nursing evaluation of patient and report 11/22/2023 7:15 AM EDT Nurse Visit [facility] [address] [place] [address] Rej, Nurse Gayathri [facility] [address] [place] [address] Follicular scan [facility] Comment on above: Follicular scan Start: 11-18-2023 End: 11-18-2023 Patient encounter procedure 11/18/2023 6:00 PM EDT Office Visit [facility] [address] [place] [address] midcycle-benefit check [facility] Comment on above: midcycle-benefit check Start: 11-15-2023 End: 11-14-2024 FOLLICULAR US WHI FOLLICULAR US WHI Anc Imaging Routine Female infertility Expected: 11/15/2023, Expires: 11/14/2024 [facility] Work Phone: Comment on above: Expected: 11/15/2023, Expires: Start: 11-04-2023 End: 11-04-2023 Patient encounter procedure Endocrinology Comment on above: MED WT MGMT Start: 10-22-2023 End: 10-22-2023 Nursing evaluation of patient and report 10/22/2023 7:00 AM EDT Nurse Visit [facility] [address] [place] [address] Rej, Nurse Gayathri [facility] [address] [place] [address] midcycle [facility] Comment on above: midcycle Start: 09-19-2023 End: 12-19-2023 Progesterone [Mass/volume] in Serum or Plasma PROGESTERONE Lab Routine Irregular menstrual cycle Expected: 09/19/2023 (Approximate), Expires: 12/19/2023 [facility] Work Phone: Comment on above: Expected: 09/19/2023 (Approximate), Expi res: 12/19/2023 Start: 09-10-2023 End: 09-10-2023 Patient encounter procedure 09/10/2023 3:00 PM EDT [facility] Rep[facility]ductive Endocrinology Infertility [id number] [facility] [place] [address] Ortega Morrissey APRN.CNM [address] [facility] [place] [address] IUI teach [facility]ro[facility]ocrinology [facility]ertility Comment on above: IUI teach Start: 09-10-2023 End: 12-10-2023 Chlamydia trachomatis+Neisseria gonorrhoeae DNA [Presence] in Unspecified specimen by JANESSA with probe detection GONORRHEA/CHLAMYDIA NAAT Lab Routine Screen for sexually transmitted diseases Expected: 09/10/2023 (Approximate), Expires: 12/10/2023 [facility] Comment on above: Expected: 09/10/2023 (Approximate), Expi res: 12/10/2023 Start: 09-10-2023 End: 12-10-2023 Choriogonadotropin.beta subunit [Units/volume] in Serum or Plasma HCG QUANTITATIVE Lab Routine Secondary amenorrhea Expected: 09/10/2023, Expires: 12/10/2023 [facility] Comment on above: Expected: 09/10/2023, Expires: 4 Start: 09-10-2023 End: 09-09-2024 FOLLICULAR US WHI FOLLICULAR US WHI Anc Imaging Routine Female infertility Expected: 09/10/2023, Expires: 09/09/2024 [facility] Comment on above: Expected: 09/10/2023, Expires: 5 Start: 09-10-2023 End: 12-10-2023 Hepatitis B virus surface Ag [Presence] in Serum HEPATITIS B SURFACE ANTIGEN Lab Routine Screen for sexually transmitted diseases Expected: 09/10/2023, Expires: 12/10/2023 [facility] Comment on above: Expected: 09/10/2023, Expires: 4 Start: 09-10-2023 End: 12-10-2023 Hepatitis C virus Ab [Presence] in Serum HEPATITIS C ANTIBODY IA WITH CONFIRMATION Lab Routine Screen for sexually transmitted diseases Expected: 09/10/2023, Expires: 12/10/2023 [facility] Comment on above: Expected: 09/10/2023, Expires: Start: 09-10-2023 End: 12-10-2023 HIV 1+2 Ab [Presence] in Serum or Plasma by Immunoassay HIV 1/2 COMBO WITH REFLEX TO DIFFERENTIATION Lab Routine Screen for sexually transmitted diseases Expected: 09/10/2023, Expires: 12/10/2023 [facility] Comment on above: Expected: 09/10/2023, Expires: 4 Start: 09-10-2023 End: 12-10-2023 Progesterone [Mass/volume] in Serum or Plasma PROGESTERONE Lab Routine Secondary amenorrhea Expected: 09/10/2023, Expires: 12/10/2023 [facility] Work Phone: Comment on above: Expected: 09/10/2023, Expires: Start: 09-10-2023 End: 12-10-2023 SYPHILIS TOTAL W/REFLEX SYPHILIS TOTAL W/REFLEX Lab Routine Screen for sexually transmitted diseases Expected: 09/10/2023, Expires: 12/10/2023 [facility] Comment on above: Expected: 09/10/2023, Expires: Start: 09-02-2023 End: 12-02-2023 Choriogonadotropin.beta subunit [Units/volume] in Serum or Plasma [facility] Comment on above: Expected: 09/02/2023, Expires: Start: 09-02-2023 End: 12-02-2023 Progesterone [Mass/volume] in Serum or Plasma [facility] Work Phone: Comment on above: Expected: 09/02/2023, Expires: Start: 08-19-2023 End: 08-19-2023 Follow-up encounter 08/19/2023 10:30 AM EDT [facility]ology [facility] [address] [place] [address] Fede Hairston MD [address] [place] [address] follow up / rescheduled ok per KF [facility] Comment on above: follow up / rescheduled ok per KF Start: 08-17-2023 End: 08-17-2023 Patient encounter procedure 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 Start: 06-16-2023 End: 09-15-2023 METANEPHRINES, FREE PLASMA METANEPHRINES, FREE PLASMA Lab Routine Monoallelic mutation of SDHA gene Expected: 06/16/2023, Expires: 09/15/2023 [facility] Work Phone: Comment on above: Expected: 06/16/2023, Expires: 4 Start: 06-01-2023 Varicella vaccination Varicella Vaccines (2 of 2 - 2-dose childhood series) [facility] Start: 05-17-2023 End: 08-16-2023 MISC SEND OUT TST 1 MISC SEND OUT TST 1 Lab Routine Family history of cancer Family history of gene mutation Expected: 05/17/2023, Expires: 08/16/2023 [facility] Work Phone: Comment on above: Expected: 05/17/2023, Expires: 4 Start: 04-17-2023 End: 07-17-2023 Progesterone [Mass/volume] in Serum or Plasma PROGESTERONE BLD Lab Routine PCOS (polycystic ovarian syndrome) Expected: 04/17/2023 (Approximate), Expires: 07/17/2023 [facility] Work Phone: Comment on above: Expected: 04/17/2023 (Approximate), Expi res: 07/17/2023 Start: 03-29-2023 Behavioral Health Screening Behavioral Health Screening [facility] Start: 03-29-2023 Depression Assessment Depression Assessment [facility] Start: 02-04-2023 End: 05-06-2023 Progesterone [Mass/volume] in Serum or Plasma PROGESTERONE BLD Lab Routine Encounter for fertility testing Expected: 02/04/2023, Expires: 05/06/2023 [facility] Work Phone: Comment on above: Expected: 02/04/2023, Expires: 4 Start: 11-27-2022 Covid-19 Vaccine ( season) Covid-19 Vaccine () [facility] Start: 11-27-2022 Influenza vaccination Influenza Vaccine (#1) [facility] Start: 03-29-2022 Depression Assessment Depression Assessment [facility] Start: 2016 Pap Testing Pap Testing [facility] Start: 2016 Screening for malignant neoplasm of cervix [facility] Start: 2014 Hepatitis A Vaccines (1 of 2 - Risk 2-dose series) Hepatitis A Vaccines (1 of 2 - Risk 2-dose series) [facility] Start: 2014 Urine microalbumin profile DTaP,Tdap,Td Vaccine (1 - Tdap) [facility] Start: 2013 Adult BMI Follow Up Plan Adult BMI Follow Up Plan [facility] Start: 2013 Adult BMI Screening Adult BMI Screening [facility] Start: 2013 Anxiety Screening Anxiety Screening [facility] Start: 2013 Depression Screening Depression Screening [facility] Start: 2013 Hepatitis C Screening Hepatitis C Screening [facility] Start: 2013 Hepatitis C screening Hepatitis C Screening [facility] Start: 2013 HIV Screening HIV Screening [facility] Start: 2013 HIV screening HIV Screening [facility] Start: 2007 Depression Screening Depression Screening [facility] Start: 2007 Tobacco Screening Tobacco Screening [facility] Start: 1995 Covid-19 Vaccine (#1) Covid-19 Vaccine (#1) [facility] Start: 1995 Hepatitis B Vaccine (1 of 3 - 3-dose series) Hepatitis B Vaccine (1 of 3 - 3-dose series) [facility] Start: 1995 HIV screening HIV Screening [facility] Start: 1995 Lipid panel Lipid Panel [facility] Start: 1995 Yearly Adult Physical Yearly Adult Physical [facility] Bacteria identified in Urine by Culture Urine culture Microbiology Routine Missed menses Ordered: 04/21/2024 [facility] Comment on above: Ordered: 04/21/2024 Bacteria identified in Urine by Culture Urine culture Microbiology Routine Urinary tract infection without hematuria, site unspecified Ordered: 05/15/2024 [employer] Work Phone: Comment on above: Ordered: 05/15/2024 End: 05-17-2024 Cath & saline/contrast sonohyster/hysterosalpi XR HYSTEROSALPINGOGRAM Radiology Routine Fertility testing 1 Occurrences starting 04/18/2023 until 05/17/2024 [facility] Work Phone: Comment on above: 1 Occurrences starting 04/18/2023 until 05/17/2024 End: 09-12-2025 CBC panel - Blood by Automated count CBC without diff Lab Routine Insulin controlled gestational diabetes mellitus (GDM) in third trimester Abnormal liver enzymes Elevated blood pressure affecting , antepartum 1 Occurrences starting 09/12/2024 until 09/12/2025 [employer] Comment on above: 1 Occurrences starting 09/12/2024 until 09/12/2025 CBC W Auto Different ial panel - Blood CBC and differential Lab Routine Missed menses , unspecified gestational age Ordered: 04/21/2024 [employer] Comment on above: Ordered: 04/21/2024 End: 03-13-2025 Choriogonadotropin.beta subunit [Units/volume] in Serum or Plasma HCG QUANTITATIVE Lab Routine examination or test, unconfirmed Daily for 2 Occurrences starting 03/13/2024 until 03/13/2025 [facility] Work Phone: Comment on above: Daily for 2 Occurrences starting until 03/13/2025 Choriogonadotropin.b eta subunit [Units/volume] in Serum or Plasma HCG QUANTITATIVE Lab Routine examination or test, unconfirmed 03/13/2024 3:37 PM [facility] End: 09-12-2025 Comprehensive metabolic 2000 panel - Serum or Plasma Comprehensive metabolic panel Lab Routine Abnormal liver enzymes Abnormal genetic test Gestational diabetes requiring insulin Elevated blood pressure affecting , antepartum 1 Occurrences starting 09/12/2024 until 09/12/2025 [employer] Work Phone: Comment on above: 1 Occurrences starting 09/12/2024 until 09/12/2025 End: 07-15-2024 CT Abdomen W contrast IV CT ABDOMEN W IVCON Radiology Routine Intra-abdominal and pelvic swelling, mass and lump, unspecified site 1 Occurrences starting 06/16/2023 until 07/15/2024 [facility] Work Phone: Comment on above: 1 Occurrences starting 06/16/2023 until 07/15/2024 End: 07-15-2024 CT Chest W contrast IV CT CHEST W IVCON Radiology Routine Localized enlarged lymph nodes 1 Occurrences starting 06/16/2023 until 07/15/2024 [facility] Work Phone: Comment on above: 1 Occurrences starting 06/16/2023 until 07/15/2024 End: 07-15-2024 CT Neck W contrast IV CT NECK SOFT TISSUE W IVCON Radiology Routine Localized enlarged lymph nodes 1 Occurrences starting 06/16/2023 until 07/15/2024 [facility] Work Phone: Comment on above: 1 Occurrences starting 06/16/2023 until 07/15/2024 Hemoglobin A1c/Hemoglobin.total in Blood Hemoglobin A1c Lab Routine Missed menses , unspecified gestational age Ordered: 04/21/2024 [facility] Comment on above: Ordered: 04/21/2024 Hepatitis B virus surface Ag [Presence] in Serum or Plasma by Immunoassay Hepatitis B surface antigen Lab Routine Missed menses , unspecified gestational age Ordered: 04/21/2024 [facility] Comment on above: Ordered: 04/21/2024 Hepatitis C virus Ab [Presence] in Serum or Plasma by Immunoassay Hepatitis C antibody Lab Routine Missed menses , unspecified gestational age Ordered: 04/21/2024 [facility] Comment on above: Ordered: 04/21/2024 HIV-1/HIV-2 antigen/antibody combination immunoassay HIV-1 and HIV-2 antibodies Lab Routine Missed menses , unspecified gestational age Ordered: 04/21/2024 [facility] Comment on above: Ordered: 04/21/2024 IGP,rfxAptima HPV all,16/18,45 IGP,rfxAptima HPV all,16/18,45 Pathology and Cytology Routine Screening for malignant neoplasm of cervix Ordered: 02/15/2024 [facility] [employer] Work Phone: Comment on above: Ordered: 02/15/2024 Reagin Ab [Presence] in Serum by RPR RPR Lab Routine Missed menses , unspecified gestational age Ordered: 04/21/2024 [facility] Comment on above: Ordered: 04/21/2024 RF Uterus and Fallop twin tubes Views W contrast IU XR HYSTEROSALPINGOGRAM Radiology Routine Fertility testing 07/29/2023 2:03 PM EDT [facility] Work Phone: Rubella antibody, IgG Rubella an tibody, IgG Lab Routine Missed menses , unspecified gestational age Ordered: 04/21/2024 [facility] Comment on above: Ordered: 04/21/2024 End: 09-12-2025 Urine protein creatinine ratio Urine protein creatinine ratio Lab Routine Gestational diabetes requiring insulin Elevated blood pressure affecting , antepartum 1 Occurrences starting 09/12/2024 until 09/12/2025 [facility] Comment on above: 1 Occurrences starting 09/12/2024 until 09/12/2025 End: 03-01-2025 US for US OB follow up transabdominal approach Imaging Routine Gestational diabetes mellitus (GDM), antepartum, gestational diabetes method of control unspecified [id number] for 8 Occurrences starting 08/30/2024 until 03/01/2025 [facility] Work Phone: Comment on above: [id number] for 8 Occurrences starting 08/30 until 03/01/2025 US Heart Transthoracic [facility] US Pelvis transvaginal US OB tra nsvaginal Imaging Routine Missed menses 04/21/2024 8:47 AM EST [facility] Immunizations Immunization Date Immunization Notes Care Provider Fa cility 05-04-2023 measles, mumps and rubella virus vaccine Robles Goldsmith DO Work Phone: [facility] 06-26-2022 tetanus toxoid, reduced diphtheria toxoid, and acellular pertussis vaccine, adsorbed Josefina Eliza Other [employer] Other 08-12-2015 Human Papillomavirus 9-valent vaccine Robles Goldsmith DO Work Phone: [facility] 04-10-2015 Human Papillomavirus 9-valent vaccine Robles Goldsmith DO Work Phone: [facility] 01-30-2015 influenza, seasonal, injectable, preservative free Robles Goldsmith DO Work Phone: [facility] 01-30-2015 influenza virus vaccine, unspecified formulation Fede Hairston MD Work Phone: [facility] 12-05-2014 Human Papillomavirus 9-valent vaccine Robles Goldsmith DO Work Phone: [facility] 02-13-2009 novel [id number], preservative-free, injectable Robles Goldsmith DO Work Phone: [facility] 08-12-2006 meningococcal polysaccharide (groups A, C, Y and W-135) diphtheria toxoid conjugate vaccine (MCV4P) Robles Goldsmith DO Work Phone: [facility] 08-10-2000 diphtheria, tetanus toxoids and acellular pertussis vaccine, unspecified formulation Robles Goldsmith DO Work Phone: [facility] 08-10-2000 measles, mumps and rubella virus vaccine Robles Pyleer DO Work Phone: [facility] 08-10-2000 poliovirus vaccine, inactivated Robles Rupal DO Work Phone: [facility] 08-04-1996 diphtheria, tetanus toxoids and acellular pertussis vaccine, unspecified formulation Robles Goldsmith DO Work Phone: [facility] 08-04-1996 haemophilus influenzae type b vaccine, conjugate unspecified formulation Robles Goldsmith DO Work Phone: [facility] 08-04-1996 varicella virus vaccine Robles Goldsmith DO Work Phone: [facility] 04-21-1996 measles, mumps and rubella virus vaccine Robles Goldsmith DO Work Phone: [facility] 03-17-1996 diphtheria, tetanus toxoids and acellular pertussis vaccine, unspecified formulation Robles Goldsmith DO Work Phone: [facility] 03-17-1996 haemophilus influenzae type b vaccine, conjugate unspecified formulation Robles Rupal DO Work Phone: [facility] 03-17-1996 hepatitis B vaccine, pediatric or pediatric/adolescent dosage Robles Pyleer DO Work Phone: [facility] 03-17-1996 trivalent poliovirus vaccine, live, oral Robles Pyleer DO Work Phone: [facility] 1995 diphtheria, tetanus toxoids and pertussis vaccine Robles Rupal DO Work Phone: [facility] 1995 haemophilus influenzae type b vaccine, conjugate unspecified formulation Robles Pyleer DO Work Phone: [facility] 1995 hepatitis B vaccine, pediatric or pediatric/adolescent dosage Robles Pyleer DO Work Phone: [facility] 1995 trivalent poliovirus vaccine, live, oral Robles Goldsmith DO Work Phone: [facility] 1995 diphtheria, tetanus toxoids and pertussis vaccine Robles Ruapl DO Work Phone: [facility] 1995 haemophilus influenzae type b vaccine, conjugate unspecified formulation Robles Pyleer DO Work Phone: [facility] 1995 hepatitis B vaccine, pediatric or pediatric/adolescent dosage Robles Pyleer DO Work Phone: [facility] 1995 trivalent poliovirus vaccine, live, oral Robles Goldsmith DO Work Phone: [facility] Payers Date Payer Category Payer [employer] - POS [id number] 2024 Commercial Managed Care - PPO [employer] [id number] 2024 Private Health Insurance [id number] Unknown [id number] 2021 Private Health Insurance [id number] 2021 Managed Care (Private) [employer] [facility] [id number] 2021 Managed Care HMO (unspecified) [id number] 2021 Private Health Insurance [id number] 2.16.840.1.818143.19 1995 Unknown [id number] 2.16840.1.596762.3.579.2 .593 1995 Unknown [id number] 2.16840.1.704007.3.579.2 .1243 1995 Unknown [id number] 2.16.840.1.342103.3.579.2 .1244 1995 Unknown [id number] 2.16.840.1.675768.3.579.2 .1286 1995 Unknown [id number] 2.16.840.1.310822.3.579.2 .1286 1995 Unknown [id number] 2.16.840.1.235790.3.579.2 .1286 1995 Unknown [id number] 2.16.840.1.805529.3.579.2 .1286 1995 Unknown [id number] 2.16.840.1.039280.3.579.2 .1286 1995 Unknown [id number] 2.16.840.1.004407.3.579.2 .9 1995 Unknown [id number] 2.16.840.1.564138.3.579.2 .1258 1995 Unknown [id number] 2.16.840.1.898792.3.579.2 .1258 1995 Unknown [id number] 2.16.840.1.142516.3.579.2 .1258 1995 Unknown [id number] 2.16.840.1.661896.3.579.2 .1258 1995 Unknown [id number] 2.16.840.1.229597.3.579.2 .1258 1995 Unknown [id number] 2.16.840.1.824616.3.579.2 .1258 1995 Unknown [id number] 2.16.840.1.690768.3.579.2 .1258 1995 Unknown [id number] 2.16.840.1.696012.3.579.2 .9 1995 Unknown [id number] 2.16.840.1.287347.3.579.2 .1258 1995 Unknown [id number] 2.16.840.1.774372.3.579.2 .1258 1995 Unknown [id number] 2.16.840.1.145153.3.579.2 .1258 1995 Unknown [id number] 2.16.840.1.090134.3.579.2 .9 1995 Unknown [id number] 2.16.840.1.840014.3.579.2 .1258 1995 Unknown [id number] 2.16.840.1.809281.3.579.2 .1258 1995 Unknown [id number] 2.16.840.1.771152.3.579.2 .1258 1995 Unknown [id number] 2.16.840.1.070206.3.579.2 .1258 1995 Unknown [id number] 2.16840.1.031554.3.579.2 .1258 1995 Unknown [id number] 2.16840.1.027031.3.579.2 .1258 1995 Unknown [id number] 2.16840.1.470857.3.579.2 .1258 1995 Unknown [id number] 2.16840.1.806517.3.579.2 .1258 1995 Unknown [id number] 2.16840.1.874835.3.579.2 .1258 1995 Unknown [id number] 2.16.840.1.262692.3.579.2 .9 1959 Self-pay Unknown MMO [id number] Unknown HCAP/HFA/FAP Active [id number] Unknown [id number] 2.16840.1.835784.3.579.2 .531 Unknown [id number] 2.16840.1.652771.3.579.2 .531 Unknown [id number] 2.16840.1.396465.3.579.2 .531 Social History Date Type Detail Facility Unknown if ever smoked [employer] Other Start: 01-04-2023 End: 07-18-2024 Sex Assigned At [employer] [facility] [employer] Other Start: 10-05-2022 End: 12-29-2022 Tobacco smoking status NHIS Never smoked tobacco [facility] Start: 10-05-2022 End: 12-29-2022 Tobacco use and exposure Smokeless tobacco non-user [facility] Start: 01-04-2023 End: 09-05-2024 Alcohol intake Current drinker of alcohol (finding) [facility] Start: 01-04-2023 End: 07-18-2024 History of Social function [facility] Start: 12-29-2022 Alcohol Comment rare, socially [facility] Start: 1995 Sex Assigned At Female C [facility] Start: 01-04-2023 Gender identity Identifies as female gender (finding) [facility] National Score (1-100), lower number is lower risk 64 [facility] Start: 02-15-2024 End: 10-23-2024 Alcoholic beverage intake Ex-drinker (finding) [facility] How often to you hav e a drink containing alcohol? Never [facility] Start: 07-13-2023 Alcohol Comment Caffeine intak e: 1 cup per day coffee [facility] Start: 1995 Sex assigned at Not on file N [facility] Start: 02-27-2024 End: 03-08-2024 Exposure to SARS-CoV-2 (event) Not sure [facility] Start: 03-27-2024 Alcohol Comment Caffeine intak e:less than 100 mg daily [facility] Start: 02-27-2024 [facility] Start: 05-23-2024 End: 07-18-2024 Alcoholic beverage intake Lifetime non-drinker (finding) [facility] Start: 08-25-2024 End: 08-29-2024 Sex Female (finding) [facility] Medical Equipment Procedure Code Equipment Code Equipment Origin al Text Equipment Identifier Dates To be used to in ject HCG trigger [id number] Start: 02-17-2024 End: 03-17-2024 To be used to mi x, draw up and inject HCG trigger [id number] Start: 02-17-2024 End: 03-17-2024 1 strip by In Vi tro route Daily Use in the morning prior to breakfast, 1 hour after each meal for a total of 4times daily. [id number] Start: 08-25-2024 End: 09-24-2024 1 each by In Vit ro route Daily Use to check FSBS four times daily [id number] Start: 08-25-2024 End: 09-24-2024 Goals Date Patient Goal Desired Activity /State Personal health goal Functional Status Date Assessment Result Facility 07-18-2024 Patient Health [facility] ionnaire 2 item (PHQ-2) [Reported] [facility] Clinical Notes 03-29-2020 to 10-24-2024 MILIND Mccormick - 10/24/2024 10:19 AM EDLisa Ashley LPN - 10/23/2024 1:30 PM Gina Haywood RN - 10/23/2024 8:30 AM EDTVy Corona MD - 10/23/2024 8:30 AM EDT Note Date & Type Note Facility 10-24-2024 History of Present illness Narrative [facility] recommendation is for patient to deliver at [facility] at 37 weeks gestation. Middle School Science Teacher called [facility] regarding possibility of pt having [facility] appointment before 37 weeks. [facility] prefers pt to be scheduled for mIoL without appointment at [facility]. L&D contacted with patient information, including need for telemetry. mIOL set for 10/30/24 @ 0730. Patient to call [phone] prior to traveling on 10/30/24 to make sure of bed availability. [employer] Teacher spoke with patient. Informed of mIOL scheduled for 10/30/24, to call before coming to confirm availability, where to park and enter hospital & how to get to L&D. Pt states understanding of plan. States she has an NST today and Wednesday in [place]. Denies questions or concerns. MILIND Mccormick 10/24/24 1026 documented in this encounter [facility] [employer] [facility] 10-23-2024 History of Present illness Narrative Reason for [...] cream Topical, Daily Blood Glucose Monitoring Suppl (D-Entitle Glucometer) w/Device kit 1 kit, Does not apply, Daily, Use four times daily to check FSBS. In the morning prior to breakfast & 1 hour after each meal for a total of 4times daily. cholecalciferol (Vitamin D-3) 50 MCG (1999 [place]) tablet 2 tablets, Daily iron polysaccharides [...] nursing note reviewed. Exam conducted with a shipping and receiving weigher present. Vitals: Estimated body mass index is 40.39 kg/m as calculated from the following: Height as of 07/18/24: 5' 3 . Weight as of this encounter: 228 lb. BP: 136/90 Patient's last menstrual period was 02/13/2024 (approximate). ASSESSMENT & PLAN (Z34.93) Third trimester ([facility]) Plan: POCT urinalysis dipstick manually resulted, CULTURE, GROUP B STREP WITH SUSCEPTIBLITY, CULTURE, GROUP B STREP WITH SUSCEPTIBLITY (Z3A.36) 36 weeks gestation of ([facility]) Plan: Creatinine, Protein, urine, 24 hour, Pt and ptt, CBC and differential, Uric acid, Lactate dehydrogenase, ALT, AST, BUN, Creatinine, Protein, urine, 24 hour, Pt and ptt, CBC and differential, Uric acid, Lactate dehydrogenase, ALT, AST, BUN (O13.9) induced hypertension, antepartum ([facility]) Plan: Creatinine, Protein, urine, 24 hour, Pt and ptt, CBC and differential, Uric acid, Lactate dehydrogenase, ALT, AST, BUN, Creatinine, Protein, urine, 24 hour, Pt and ptt, CBC and differential, Uric acid, Lactate dehydrogenase, ALT, AST, BUN Patient presents today for a routine obstetrics appointment. Patient is currently 36w1d with a Estimated Date of Delivery: 11/19/24. Discussed with patient call from Specialist at [facility]. Patient is to deliver at [facility] due to recent cardiac workup. Patient will continue NST/BPP's locally and will delivery with [facility]. Nursing will reach out to [facility] and work on transfer with Chute Boss. Patient to return to clinic for 6 week post appointment. Patient did voice that she is not currently on any Beta Blockers & and not been prescribed any cardiac medication at this time. Documented by Flip Ashley LPN on behalf of: Saravanan Ahumada DO documented in this encounter [facility] 10-23-2024 History of Present illness Narrative Headache/epigastric pain/blurry vision/swelling? Bilateral hands swelling, denies other symptoms Cramping/contractions? Occasional uriah hick Spotting or vaginal bleeding? No Loss or gush of fluid like your water may have broken? No Recent ER visits or hospitalizations? No Any concerns that you would like me to mention to the provider today? Holter monitor results Images from the original note were not [...] 10 days, Disp: 5 each, Rfl: 10 insulin glargine (LANTUS SOLOSTAR U-100 INSULIN) 100 unit/mL (3 mL) insulin pen, Inject 16 units every evening. Prime with 2 units., Disp: 15 mL, Rfl: 2 ow180-xerk-yeyvu acid ( 19) 29 mg iron- 1 mg tablet,chewable, Chew 1 tablet and swallow in the morning., Disp: , Rfl: LABS: No results found for: GLUF , MICROALBUR , LDLCALC , CREATININE No results found for: TSH , T3 , TOTALT4 , THYROIDAB No results found for: [id number] No results found for: CREATININE , BUN [...] may have to deliver at [facility] and require telemetry as we also [...] tertiary care center such as [facility] and telemetry during labor and for [...] patient as recommended by Cardiology. She has been prescribed propranolol [place]. Give half the dose of long-acting insulin the night before delivery All questions and concerns that Dr. Ahumada had were answered Vy Corona MD, FACOG (she/hers) Maternal- Medicine [facility] [address], [facility] [address] [place] [address] documented in this encounter [facility] 10-18-2024 Evaluation note Authored October 18, 2024 [...] to discuss this therapeutic option with her SENIOR SQL SERVER DEVELOPER who she is due to to visit with early next week. Recommendations: 1. Stat echocardiogram to ensure no significant drop in left ventricular systolic function since most recent echocardiogram done on August 24 2. Will provide Emilee prescription for propranolol 40 mg twice daily that she could start if she chooses to after consultation with her SENIOR SQL SERVER DEVELOPER. This could be continued through term and [...] in the care of this delightful patient. [facility] Work Phone: 1(598) 532-854507-22-2025 Miscellaneous Notes* Telephone Encounter - MUNIRA Torres - 10/17/2024 1:37 PM EDT Called regarding Dexcom Clarity report from 10/10/2024-10/16/2024. Dr. Corona reviewed your blood sugars and does not want to make any changes in your Lantus at this time. Lissa verbalized understanding. documented in this encounterG[facility] CenterDojo[facility]-22-[facility]25 Telephone encounter Note* Telephone Encounter - MUNIRA Torres - 10/17/2024 1:37 PM EDT Called regarding Dexcom Clarity report from 10/10/2024-10/16/2024. Dr. Corona reviewed your blood sugars and does not want to make any changes in your Lantus at this time. Lissa verbalized understanding. [facility] Work Phone: 1(910) 280-992607-21-2025 History of Present illness Narrative* Selina Denson [...] cream Topical, Daily Blood Glucose Monitoring Suppl (D-Entitle Glucometer) w/Device kit 1 kit, Does not [...] nursing note reviewed. Exam conducted with a shipping and receiving weigher present. Vitals: Estimated body mass index is 40.61 kg/m as calculated from the following: Height as of 07/18/24: 5' 3 . Weight as of this encounter: 229 lb 4 oz. BP: 120/86 Patient's last menstrual period was 02/13/2024 (approximate). ASSESSMENT & PLAN ICD-10-CM 1. Third trimester ([facility]) Z34.93 POCT urinalysis dipstick manually resulted 2. 35 weeks gestation of ([facility]) Z3A.35 Return OB: Patient presents today for [...] edema. She continues to follow closely with [facility] and transmits glucose weekly. [facility] recommends pre-eclampsia labs every 2 weeks and those were given to Mary today. The recommendation was to considered planned delivery at 37 weeks. Continue NST/BPP. Documented by Selina Denson NP on behalf of: Selina Denson NP documented in this encounterMercy hospital [id number] History of Present illness Narrative* Ortega Tatum [...] chest pain. +FM. She is beingfollowed at [facility] due to GDMA2. States she is [...] 2 units., Disp: 15 mL, Rfl: 2 gp248-zwfr-szmvb acid ( 19) 29 mg iron- 1 mg tablet,chewable, Chew 1 tablet and swallow in the morning., Disp: , Rfl: LABS: No results found for: GLUF , MICROALBUR , LDLCALC , CREATININE No results found for: TSH , T3 , TOTALT4 , THYROIDAB No results found for: [id number] No results found for: CREATININE , BUN [...] by e-mail to: or by fax to: [phone] TIME OF CONSULTATION: 30 minutes with the patient, >50% in discussion and counseling, coordination of care which was [id number], review of records and communication back to referring provider. CARLOS Ford 10/11/24 1444 documented in this encounterAv[facility]25 History of Present illness Narrative* Flip Ashley [...] cream Topical, Daily Blood Glucose Monitoring Suppl (D-Entitle Glucometer) w/Device kit 1 kit, Does not [...] nursing note reviewed. Exam conducted with a shipping and receiving weigher present. Vitals: Estimated body mass index is 40.3 kg/m as calculated from the following: Height as of 07/18/24: 5' 3 . Weight as of this encounter: 227 lb 8 oz. BP: 136/86 Patient's last menstrual period was 02/13/2024 (approximate). ASSESSMENT & PLAN ICD-10-CM 1. Third trimester ([facility]) Z34.93 POCT urinalysis dipstick manually resulted 2. 34 weeks gestation of ([facility]) Z3A.34 3. 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 Insulin controlled gestational diabetes mellitus (GDM) during , antepartum ([facility]) O24.414 Patient presents today for a routine [...] of: Saravanan Ahumada DO documented in this encounterMercy hospital [id number] History of Present illness Narrative* Selina Denson [...] cream Topical, Daily Blood Glucose Monitoring Suppl (D-Entitle Glucometer) w/Device kit 1 kit, Does not [...] nursing note reviewed. Exam conducted with a shipping and receiving weigher present. Vitals: Estimated body mass index is 40.1 kg/m as calculated from the following: Height as of 07/18/24: 5' 3 . Weight as of this encounter: 226 lb 6.4 oz. BP: 136/84 Patient's last menstrual period was 02/13/2024 (approximate). ASSESSMENT & PLAN ICD-10-CM 1. 33 weeks gestation of ([facility]) Z3A.33 POCT urinalysis dipstick manually resulted 2. Encounter for routine care ([facility]) Z34.90 POCT urinalysis dipstick manually resulted 3. Third trimester ([facility]) Z34.93 POCT urinalysis dipstick manually resulted Return [...] Lantus and glucose is being transmitted to [facility]. Continue NST/BPP. Recent epistaxis and discontinued Valtrex and changed to acyclovir. Documented by Selina Denson NP on behalf of: Saravanan Ahumada DO documented in this encounterMercy hospital [id number] History of Present illness Narrative* Paula Rivera [...] cream Topical, Daily Blood Glucose Monitoring Suppl (D-Entitle Glucometer) w/Device kit 1 kit, Does not [...] nursing note reviewed. Exam conducted with a shipping and receiving weigher present. Vitals: Estimated body mass index is 39.95 kg/m as calculated from the following: Height as of 07/18/24: 5' 3 . Weight as of this encounter: 225 lb 8 oz. BP: 130/80 Patient's last menstrual period was 02/13/2024 (approximate). ASSESSMENT & PLAN ICD-10-CM 1. Third trimester ([facility]) Z34.93 POCT urinalysis dipstick manually resulted 2. Insulin controlled gestational diabetes mellitus (GDM) during , antepartum ([facility]) O24.414 3. 32 weeks gestation of ([facility]) Z3A.32 Return OB: Patient presents today for [...] of: Saravanan Ahumada DO documented in this encounterMercy hospital [id number] History of Present illness Narrative* Alton Rebolledo, STEWARD/STEWARDESS SMOKE ROOM-APPLICATIONS INSTRUCTOR - 09/20/2024 11:00 AM EDT REASON FOR OFFICE VISIT: Video Visit via Real-time Synchronous Audiovisual Provider Location: [facility] AT [address] [address] Patient Location: Patient's home Video [...] that there are some limitations compared to bhin-fr-thsc evaluations. The patient consented to the presence of additional virtual and/or in-person participants. We elected to proceed. 1. GDMA2; A1c 5.4% on 04/21/24 2. Mild pre-eclampsia - need f/u within 1 week on 09/27/24 with [facility] HISTORY OF PRESENT ILLNESS: Lsisa Rivas is a pleasant 29 y.o. at 31w3d due on Estimated Date of Delivery: 11/19/24. Currently the patient has no complaints. The patient denies KEYS, nausea, vomiting, abdominal pain, vaginal bleeding, contractions, leaking fluid or chest pain. +FM. She is beingfollowed at [facility] due to GDMA2. States she is following [...] taking: Reported on 09/12/2024), Disp: , Rfl: [id number]-qgvx-yjlya acid ( 19) 29 mg iron- 1 [...] TOTALT4 , THYROIDAB No results found for: [id number] No results found for: CREATININE , BUN [...] by e-mail to: or by fax to: [phone] TIME OF CONSULTATION: 20 minutes with the patient, >50% in discussion and counseling, coordination of care which was pqvm-et-[id number], review of records and communication back to referring provider. CARLOS Ford 09/20/24 1121 documented in this encounterAvita Health System06-18-2025 History of Present illness Narrative* Selina Denson NP - 09/13/2024 11:30 AM [...] cream Topical, Daily Blood Glucose Monitoring Suppl (D-Entitle Glucometer) w/Device kit 1 kit, Does not [...] ASSESSMENT & PLAN ICD-10-CM 1. Third trimester ([facility]) Z34.93 POCT urinalysis dipstick manually resulted 2. 31 weeks gestation of ([facility]) Z3A.31 Return OB: Patient presents today for [...] pm and glucose will be monitored per [facility] Documented by Selina Denson NP on behalf of: Saravanan Ahumada DO documented in this encounterMercy hospital [id number] History of Present illness Narrative* Ruthann Miller PA-C - 09/12/2024 4:03 PM EDT Called and spoke with patient - she had the recommended pre-e labs done at [facility]. Patient had mild range BP then [...] triage near her. She will go to [facility]. I called and spoke with RN in triage - informed that patient had CMP and CBC already drawn, but that urine sample was not taken. Recommend BP monitoring and evaluation of pre-e labs. Contact stated they would inform Dr Ahumada upon arrival of patient to hospital. Ruthann Miller PA-C 09/12/24 1608 documented in this encounterAvita Health System06-17-2025 History of Present illness Narrative* Ruthann Miller PA-C - 09/12/2024 10:00 AM [...] mouth in the morning., Disp: , Rfl: as534-kkiu-vxhgi acid ( 19) 29 mg iron- 1 [...] more likely to fail compared to insulin. skilled nursing data on children whose mothers took oral [...] Delivery recommendations : - Recommend delivery at [id number] - Use 1/2 dose of insulin the [...] by e-mail to: or by fax to: [phone] Ruthann Miller PA-C Maternal- Medicine Office phone: [phone] Ruthann Miller PA-C 09/12/24 1211 * Ortega Tatum CMA [...] with questions or concerns. documented in this encounterAvita Health System06-16-2025 Instructions* Patient Instructions* Mirta Gallagher MD - [...] pending, and I will contact you via [employer] once the results are available. - Your [...] Please continue to follow up with your SENIOR SQL SERVER DEVELOPER and the diabetes care team for management. [...] your urine based on recent tests. Your SENIOR SQL SERVER DEVELOPER will likely repeat a urine test at your next visit in 4 weeks. - Your hemoglobin, hematocrit, and red blood cell count were low on recent testing. Please follow up with your SENIOR SQL SERVER DEVELOPER for further evaluation and management. Follow-Up Plan: - Please continue to follow up with your SENIOR SQL SERVER DEVELOPER for routine care and gestational diabetes management. - Once your plasma metanephrines results are available, I will contact you via [employer]. - After your delivery, please message me to schedule imaging and blood work for follow-up on your SDHA mutation. If your blood work is normal, imaging can be deferred until 2025 or 2026. Wishing you a safe and healthy ! documented in this encounterPomerene [facility]06-16-2025 NoteHNO ID: [id number] Author: MIRTA GALLAGHER MD Service: ? Author Type: Physician Type: Progress Notes Filed: 09/11/2024 09:23 Note Text: DATE: 09/11/2024 VIRTUAL VISIT PROGRESS NOTE This is a virtual visit using [employer] Zoom Video Visit. It required patient-provider interaction for the medical decision making as documented below. I have communicated my name and active licensure. The patient's identity and physical location were verified at the time of this visit. Either the patient or their legal telephone services sales representative has been informed of the [...] She is under the care of her SENIOR SQL SERVER DEVELOPER in [place] for GDM management. Despite dietary modifications, she [...] No Headaches: No Memory (more content not included)...[facility]06-16-2025 History of Present illness Narrative* Mirta Gallagher MD - 09/11/2024 8:59 AM EDT DATE: 09/11/2024 VIRTUAL VISIT PROGRESS NOTE This is a virtual visit using [employer] Zoom Video Visit. It required patient- provider interaction for the medical decision making as documented below. I have communicated my name and active licensure. The patient's identity and physical location wereverified at the time of this visit. Either the patient or their legal telephone services sales representative has been informed of the [...] She is under the care of her SENIOR SQL SERVER DEVELOPER in [place] for GDM management. Despite dietary modifications, she [...] under the care of a specialist in [place] and is no longer taking Metformin since [...] the specialist weekly. - Follow up with SENIOR SQL SERVER DEVELOPER for regular care and monitoring of GDM. TSH was 2.69 prior to conception but TPO Ab were negative. Mirta Gallagher MD, MPH Endocrinology documented in this encounterPomerene Hospital06-10-2025 Miscellaneous Notes* Telephone Encounter - Aranza Beltran [...] insulin and not metformin. documented in this encounterAvita Health System06-10-2025 Telephone encounter Note* Telephone Encounter - Aranza [...] will probably do insulin and not metformin. [facility] [employer]06-22-1614 NoteHNO ID: [id number] Author: МАРИЯ LABOY MD Service: ? Author [...] Rivas DATE: September 19, 2024 TIME: 3:28 [facility]06-10-2025 History of Present illness Narrative* Мария [...] 2024 TIME: 3:28 PM documented in this encounterCleveland [id number] Group counseling note* Group Note - MUNIRA [...] day food log and blood glucoses to [email or web address] every Wednesday night/Wednesday morning. Please refer to health habits for other goals. Breakfast 10 AM 15-25 grams of CHO, Lunch 2 PM 45 grams of CHO, Snack 4:30 PM 15-30 grams of CHO, Dinner 7 PM 45 grams of CHO, HS Snack 8:30 PM 15-30 grams of CHO. Face to face time was 82 minutes. [employer] Work Phone: [phone] Miscellaneous Notes* Group Note - MUNIRA Torres [...] day food log and blood glucoses to [email or web address] every Wednesday night/Wednesday morning. Please refer to health habits for other goals. Breakfast 10 AM 15-25 grams of CHO, Lunch 2 PM 45 grams of CHO, Snack 4:30 PM 15-30 grams of CHO, Dinner 7 PM 45 grams of CHO, HS Snack 8:30 PM 15-30 grams of CHO. Face to face time was 82 minutes. documented in this encounterAvita Health System06-04-2025 History of Present illness Narrative* Flip Ashley, LEXII - 08/30/2024 11:20 AM EDT Reason for [...] nursing note reviewed. Exam conducted with a shipping and receiving weigher present. Vitals: Estimated body mass index is [...] of: Saravanan Ahumada DO documented in this encounterMercy hospital springfieldJfcgfpmuef07-55-1959 History of Present illness Narrative* FLACA Kovacs [...] nursing note reviewed. Exam conducted with a shipping and receiving weigher present. 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 Metformin, previously prescribed for polycystic ovary syndrome [...] Date Anxiety Asthma LORA (generalized anxiety disorder) ([facility]) GERD (gastroesophageal reflux disease) Herpes [...] since 04/2024. - No previous EKG performed; [employer] monitor will be ordered -order echo. - If heart rate exceeds 120 beats per minute for an extended period, further investigation will be warranted. Patient was seen and examined with Jaime Davies CNP. History was confirmed and verified. Kelly elements of the exam were also completed. Assessment and plan were reviewed and addended as needed. Agree with documentation above. documented in this encounterMercy hospital [id number] History of Present illness Narrative* Flip Ashley [...] nursing note reviewed. Exam conducted with a shipping and receiving weigher present. Vitals: Estimated body mass index is [...] during travel. Patient was prescribed medication from salesperson recreational vehicles and provider will reach out to patient [...] leaving that lotion that was prescribed by [employer] is safe to use, but not in large doses. PVU documented in this encounterMercy hospital [id number] History of Present illness Narrative* Andrew Ferrer, NATANAEL - 05/23/2024 4:00 PM EST Images from the original note were not included. Subjective Patient ID: Lissa Rivas is a 29 y.o. 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 She has tried kgka-kuz-acdrkcd antifungal treatments without relief. Additionally she has [...] thickness today utilizing a nail Nipperand bur precision lens grinder without incident. She will call us [...] understanding. Andrew Ferrer DPM documented in this encounterMercy hospital [id number] History of Present illness Narrative* Flip Ashley, LEXII - 05/22/2024 8:50 AM EST Reason for [...] nursing note reviewed. Exam conducted with a shipping and receiving weigher present. Vitals: Estimated body mass index is [...] and [facility] Patient has been consulted regarding any further [...] of: Saravanan Ahumada DO documented in this encounterMercy hospital [id number] History of Present illness Narrative* Rosemary Hooper [...] nursing note reviewed. Exam conducted with a shipping and receiving weigher present. Vitals: Estimated body mass index is [...] by Rosemary Hooper MA documented in this encounterMercy hospital [id number] History of Present illness Narrative* Rosemary Hooper [...] and [facility]. Patient has also been advised to not [...] by: Rosemary Hooper MA documented in this encounterMercy hospital [id number] NoteHNO ID: [id number] Author: ORTEGA MORRISSEY APRN.JORDAN Service: ? Author Type: Nurse Practitioner Type: Progress Notes Filed: 2024 16:38 Note Text: Lissa Rivsa here today for a scan. This is [...] to OB Ortega Morrissey APRN.CNP 2024 4:34 [facility]01-06-2025 History of Present illness Narrative* Ortega Morrissey APRN.JORDAN - 2024 4:34 PM EST Lissa Abramsdevi here today for a scan. This is her 1st scan. 0 0 0 History of ectopic: No History of SAB: No History of pelvic/abdominal surgeries: No LMP 02/12, fertility medications used this cycle: let 5mg, date of LH surge: LH + 126, TI Latest Ref Rng 01/04/2023 ABO A [...] APRN.CNP 2024 4:34 PM documented in this encounterP[facility]12-30-2024 History of Present illness Narrative* Cindy Dailey [...] drawn today. Appointments scheduled for OBUS in [place] office on 04/12 and with [facility] on 05/01. 03/27/2024 3:01 PM documented in this encounterMer[facility] [id number] Progress note* Fede Hairston MD - 03/20/2024 [...] Hysteroscopy Laparoscopy OPK (Ovulation Predictor Kit) Ovarian [place] [facility] 10.91 High 01/04/2023 Saline Ultrasound Semen [...] Laterality Date EYE SURGERY HX 03/2020 [facility] FAMILY HISTORY Problem Relation Age of Onset [...] visit. Either the patient or their legal telephone services sales representative has been informed of the risks and benefits of -- and alternatives to -- treatment through a remote evaluation andconsents to proceed with the evaluation remotely. I spent a total of 30 minutes on the date of the service which included preparing to see the patient, iwpk-ta-uguo patient care, counseling and educating the patient/family/caregiver, ordering medications, tests, or procedures, communicating results to the patient/family/caregiver, and care coordination (not separately reported). MD Kim Branch MD [facility]12-23-2024 Consult note* Fede Hairston MD - 03/20/2024 [...] used ocp since teenager. Was seen [facility] for PCOS and placed on metformin. She [...] Hysteroscopy Laparoscopy OPK (Ovulation Predictor Kit) Ovarian [place] [facility] 10.91 High 01/04/2023 Saline Ultrasound Semen [...] visit. Either the patient or their legal telephone services sales representative has been informed of the risks and benefits of -- and alternatives to -- treatment through a remote evaluation andconsents to proceed with the evaluation remotely. I spent a total of 30 minutes on the date of the service which included preparing to see the patient, yxte-am-ixol patient care, counseling and educating the patient/family/caregiver, ordering medications, tests, or procedures, communicating results to the patient/family/caregiver, and care coordination (not separately reported). MD Kim Branch MD documented in this encounterPomerene Hospital12-20-2024 NoteHNO ID: [id number] Author: ORTEGA MORRISSEY APRN.CNP Service: ? Author Type: Nurse Practitioner Type: Progress Notes Filed: 03/17/2024 14:22 Note Text: REPRODUCTIVE ENDOCRINOLOGY AND INFERTILITY New SERVICE DATE: 03/17/2024 SERVICE TIME: 1:56 PM NAME: Lissa Rivas VIRTUAL VISIT PROGRESS NOTE This is a virtual visit. It required patient-provider interaction for the medical decision making as documented below. Patient name and birthday verified: Yes Location of patient: [place] Persons Present: patient I have communicated my name and active licensure. The patient's identity and physical location were verified at the time of this visit. Either the patient or their legal telephone services sales representative has been informed of the [...] which included preparing to see the patient, zmqt-ue-dzik patient care, completing clinical documentation, obtaining and/or [...] closest open slot. Call to patient needed: [facility]12-20-2024 History of Present illness Narrative* Ortega Morrissey APRN.CNP - 03/17/2024 1:56 PM EST Images from the original note were not included. REPRODUCTIVE ENDOCRINOLOGY AND INFERTILITY New SERVICE DATE: 03/17/2024 SERVICE TIME: 1:56 PM NAME: Lissa Rivas VIRTUAL VISIT PROGRESS NOTE This is a virtual visit. It required patient-provider interaction for the medical decision making as documented below. Patient name and birthday verified: Yes Location of patient: [place] Persons Present: patient I have communicated my name and active licensure. The patient's identity and physical location wereverified at the time of this visit. Either the patient or their legal telephone services sales representative has been informed of the [...] Schedule with OB: Scheduled with local OB Ortegajamie Morrissey APRN.CNP March 17, 2024 1:56 PM I spent a total of 20 minutes on the date of the service which included preparing to see the patient, opjl-vn-lsji patient care, completing clinical documentation, obtaining and/or [...] to patient needed: no documented in this encounterPomerene Hospital12-16-2024 Telephone encounter Note * Telephone Encounter - [...] Morrissey APRN.CNP March 13, 2024 1:37 PM [facility]12-16-[facility]24 Miscellaneous Notes* Telephone Encounter - Ortega Morrissey [...] ordered: HCG x2 FYI Dr. Bill Morrissey APRN.APPLICATIONS INSTRUCTOR March 13, 2024 1:37 PM * Telephone Encounter - Ayanna Wise - 03/13/2024 11:55 AM EST Patient states she skipped this month and has +hpt, please follow up with patient. documented in this encounterPomerene Hospital12-16-2024 Telephone encounter Note * Telephone Encounter - Ayanna Wise - 03/13/2024 11:55 AM EST Patient states she skipped this month and has +hpt, please follow up with patient. [facility] Work Phone: 1(939) 307-995612-11-2024 History of Present illness Narrative* Garbiel Blackwell DO - 03/08/2024 10:30 AM EST [...] Use: Not At Risk (02/15/2024) [facility] Frequency of Alcohol Consumption: Never Average [...] and 96% in the left ear. Speech head operator threshold is 10 dB in the right ear and 5 dB in the left ear. Procedure: [] Gabriel Blackwell DO documented in this [facility] Work Phone: 1(634) 226-671112-02-2024 Telephone encounter Note* Telephone Encounter - Ortega [...] MORRISSEY APRN.CNP February 28, 2024 11:54 AM [facility]12-02-2024 Miscellaneous Notes* Telephone Encounter - Ortega Morrissey [...] it after she pays documented in this encounterPomerene Hospital12-02-2024 Telephone encounter Note * Telephone Encounter - Joanna Garces - 02/28/2024 8:22 AM EST Pt is not financially clear yet should she still schedule it after she pays [facility]11-27-2024 NoteHNO ID: [id number] Author: ORTEGA MORRISSEY APRN.JORDAN Service: ? Author Type: Nurse Practitioner Type: Progress Notes Filed: 02/23/2024 13:56 Note Text: Lissa Rivas is here today for a midcycle scan. Lead follicle: 11 Plan: repeat scan 02/24 Ortega Morrissey APRN.APPLICATIONS INSTRUCTOR February 23, 2024 1:54 PM Please schedule the patient for the following- Location: [facility] Provider: Nurse Visit type: midcycle Reason for visit/appointment notes: midcycle Date: 02/24 Time (requested): 0730 If slot is full, please schedule the closest open slot. Call to patient needed: [facility]11-27-2024 NoteHNO ID: [id number] Author: PAULA HESTER RN Service: ? Author [...] Paula Hester RN February 23, 2024 7:46 [facility]11-27-2024 History of Present illness Narrative* Paula Hester [...] 23, 2024 7:46 AM documented in this encounterPomerene Hospital11-25-2024 Telephone encounter Note * Telephone Encounter - Ortega Morrissey APRN.CNP - 02/21/2024 10:38 AM EST Medication send the CS specialty on 02/17. Ortega Morrissey APRN.CNP February 21, 2024 10:39 AM [facility]11-25-2024 Miscellaneous Notes* Telephone Encounter - Ortega Morrissey APRN.CNP - 02/21/2024 10:38 AM EST Medication send the CS specialty on 02/17. Ortega Morrissey APRN.CNP February 21, 2024 10:39 AM * Telephone Encounter - Joanna Garces - 02/21/2024 10:31 AM EST [facility]eds [facility] documented in this encounterPomerene Hospital11-25-2024 Telephone encounter Note * Telephone Encounter - Joanna Garces - 02/21/2024 10:31 AM EST Needs hcg [facility]11-21-[facility] Plan of care note* GAYATHRI Plan Note [...] visit. Either the patient or their legal telephone services sales representative has been informed of the risks and benefits of -- and alternatives to -- treatment through a remote evaluation andconsents to proceed with the evaluation remotely. I spent a total of 30 minutes on the date of the service which included preparing to see the patient, yuyv-lp-dkei patient care, counseling and educating the patient/family/caregiver, ordering medications, tests, or procedures, communicating results to the patient/family/caregiver, and care coordination (not separately reported). Kim Khan MD [facility]11-21-2024 Miscellaneous Notes* GAYATHRI Plan Note - Fede [...] visit. Either the patient or their legal telephone services sales representative has been informed of the risks and benefits of -- and alternatives to -- treatment through a remote evaluation andconsents to proceed with the evaluation remotely. I spent a total of 30 minutes on the date of the service which included preparing to see the patient, ajdk-yg-rnwh patient care, counseling and educating the patient/family/caregiver, ordering medications, tests, or procedures, communicating results to the patient/family/caregiver, and care coordination (not separately reported). Kim Khan MD documented in this encounterPomerene Hospital11-19-2024 History of Present illness Narrative* Adilene Ford MA - 02/15/2024 3:15 PM EST Images from the original note were not included. Robles Goldsmith, DO Obstetrics and Gynecology Lissa Iannsusannah 1995 02/15/24 [id number] Yearly Wellness Exam Chief Complaint Patient presents [...] Lau Past Medical History: Diagnosis Date Asthma ([facility]) GERD (gastroesophageal reflux disease) PCOS (polycystic ovarian [...] angle tenderness, no obvious scoliosis/kyphosis. 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 She works from home for [employer]. Entered by Adilene Ford MA acting as scribe for Dr. Robles Goldsmith. Signature Adilene Ford MA Date 02/15/24 . Time 3:12 PM . The documentation recorded by the scribe accurately reflects the service(s) I personally performed and the decisions I made. Signature Jordan Goldsmith D.O. Date 02/15/24 Time 5:00PM. documented in this encounterMercy hospital [id number] Telephone encounter Note* Telephone Encounter - Ortega [...] schedule the patient for the following- Location: [facility] Provider: nurse Visit type: midcycle Reason for visit/appointment notes: midcycle Date: 02/22 Time (requested): 0700 If slot is full, please schedule the closest open slot. Call to patient needed: no [facility]11-19-2024 Miscellaneous Notes* Telephone Encounter - Ortega Morrissey [...] schedule the patient for the following- Location: [facility] Provider: nurse Visit type: midcycle Reason [...] follow up with patient. documented in this encounterPomerene Hospital11-19-2024 Telephone encounter Note * Telephone Encounter - Ayanna Wise - 02/15/2024 11:36 AM EST Patient states this past month in January she did not ovulate so she did not go through with iui, please follow up with patient. [facility] Work Phone: 1(660) 999-806410-18-2024 Telephone encounter Note* Telephone Encounter - Ortega Morrissey APRN.CNP - 01/14/2024 4:15 PM EDT Spoke with Lissa, She is planning to use OPK only this cycle. Jeferson call with LH surge. Ortega Morrissey APRN.CNP January 14, 2024 4:17 PM [facility]10-18-2024 Miscellaneous Notes* Telephone Encounter - Ortega Morrissey [...] plan for scheduling iui documented in this encounterPomerene Hospital10-18-2024 Telephone encounter Note * Telephone Encounter - Keren Carcamo - 01/14/2024 9:03 AM EDT Pt started cycle 01/12 and would like to discuss plan for scheduling iui [facility]10-04-2024 NoteHNO ID: [id number] Author: ORTEGA MORRISSEY APRN.CNP Service: ? Author [...] Cycle Day: 20 Last menstrual period: 12/12/2023 [place] Protocol: UNIVERSAL PROTOCOL / SAFETY CHECKLIST Procedure [...] Rivas DATE: December 31, 2023 TIME: 10:25 [facility]10-04-2024 Procedure note* Ortega [...] Cycle Day: 20 Last menstrual period: 12/12/2023 Kn[place] Protocol: UNIVERSAL PROTOCOL / SAFETY CHECKLIST Procedure [...] DATE: December 31, 2023 TIME: 10:25 AM [facility]10-04-2024 Procedure note* Ortega Morrissey APRN.CNP - [...] Cycle Day: 20 Last menstrual period: 12/12/2023 Knifley Protocol: UNIVERSAL PROTOCOL / SAFETY CHECKLIST Procedure [...] 2023 TIME: 10:25 AM documented in this encounterPomerene Hospital10-04-2024 Nurse Note* Domenica Coon MA - 12/31/2023 10:07 AM EDT Sleeve Tailor offered: Patient declines. [facility]10-04-2024 Nurse Note* Domenica Coon MA - 12/31/2023 10:07 AM EDT Sleeve Tailor offered: Patient declines. documented in this encounterPomerene Hospital09-24-2024 History of Present illness Narrative* Robin Grewal RN - 12/21/2023 2:32 PM EDT pt using LH surge strips and will call to irvin Grewla RN December 21, 2023 2:32 PM * [...] plan provided to patient via a Fertility philosophy faculty member. Kim Khan MD documented in this encounterPomerene Hospital09-24-2024 NoteHNO ID: [id number] Author: ROBIN GREWAL RN Service: ? Author Type: Registered Nurse Type: Progress Notes Filed: 12/21/2023 14:32 Note Text: pt using LH surge strips and will call to irvin Grewal RN December 21, 2023 2:32 [facility]09-24-2024 NoteHNO ID: [id number] Author: FEDE HAIRSTON MD Service: ? Author [...] plan provided to patient via a Fertility philosophy faculty member. Kim Khan, [facility]09-16-2024 Telephone encounter Note* Telephone Encounter - Ortega Morrissey APRN.CNP - 12/13/2023 4:41 PM EDT [facility] 12/11 Plan: Let 5mg, trigger, IUI#2 Flowsheet/episode created Ortega Morrissey APRN.CNP December 13, 2023 4:42 PM Please schedule the patient for the following- Location: [place] Provider: Nurse Visit type: Midcycle Reason for visit/appointment notes: Midcycle Date: 12/20 Time (requested): 730 If slot is full, please schedule the closest open slot. Call to patient needed: no [facility]09-16-2024 Miscellaneous Notes* Telephone Encounter - Ortega Morrissey APRN.CNP - 12/13/2023 4:41 PM EDT [facility] 12/11 Plan: Let 5mg, trigger, IUI#2 Flowsheet/episode created Ortega Morrissey APRN.CNP December 13, 2023 4:42 PM Please schedule the patient for the following- Location: [place] Provider: Nurse Visit type: Midcycle Reason for visit/appointment notes: Midcycle Date: 12/20 Time (requested): 730 If slot is full, please schedule the closest open slot. Call to patient needed: no documented in this encounterPomerene Hospital09-01-2024 NoteHNO ID: [id number] Author: EVANGELINA PAINTER, ? Service: ? Author Type: Transformer Builder Type: Progress Notes Filed: 11/28/2023 11:00 Note Text: IUI Pre: 72 M/ml, 63% Post: 73 M/ml, 88% Insem # 44.8 [facility]Ohio[facility]-01-[facility] History of Present illness Narrative* Evangelina Painter - 11/28/2023 10:59 AM EDT IUI Pre: 72 M/ml, 63% Post: 73 M/ml, 88% Insem # 44.8 million * Evangelina Painter - 11/28/2023 10:48 AM EDT IUI specimen released to provider Evangelina Painter November 28, 2023 10:48 AM documented in this encounterPomerene Hospital09-01-2024 NoteHNO ID: [id number] Author: DESHAWN RIOJAS MD Service: ? Author [...] Cycle Day: 13 Last menstrual period: 11/12/2023 Knif[place] Protocol: UNIVERSAL PROTOCOL / SAFETY CHECKLIST Procedure [...] Rivas DATE: November 28, 2023 TIME: 10:52 [facility]09-01-2024 Procedure note* Deshawn [...] Cycle Day: 13 Last menstrual period: 11/12/2023 Knifley Protocol: UNIVERSAL PROTOCOL / SAFETY CHECKLIST Procedure [...] DATE: November 28, 2023 TIME: 10:52 AM [facility]09-01-2024 Procedure note* Deshawn Riojas MD - 11/28/2023 10:52 AM EDT WHI GAYATHRI IUI PROCEDURE NOTE Date: 11/28/2023 Primary Proceduralist: Deshawn Riojas MD, Sandra Cruz MD Consents and Labels Consent Signed: Informed Consent obtained and on the chart Labels Verified With Patient: Yes Indications: Lissa iRvas, is a 28 year old female here today for intrauterine insemination. IUI # . Cycle Day: 13 Last menstrual period: 11/12/2023 Knifley Protocol: UNIVERSAL PROTOCOL / SAFETY CHECKLIST Procedure [...] 2023 TIME: 10:52 AM documented in this encounterPomerene Hospital09-01-2024 NoteHNO ID: [id number] Author: EVANGELINA PAINTER, ? Service: ? Author Type: Transformer Builder Type: Progress Notes Filed: 11/28/2023 10:54 Note Text: IUI specimen released to provider Evangelina Painter November 28, 2023 10:48 [facility]08-26-2024 NoteHNO ID: [id number] Author: ORTEGA MORRISSEY APRN.CNP Service: ? Author [...] and birthday verified: Yes Location of patient: [place] Persons Present: patient I have communicated my name and active licensure. The patient's identity and physical location were verified at the time of this visit. Either the patient or their legal telephone services sales representative has been informed of the [...] Once starting progesterone had intense mood swings/irritability [place] heart was beating slower than normal but [...] will schedule IUI as instructed Ortega Morrissey APRN.APPLICATIONS INSTRUCTOR November 22, 2023 2:33 PM I spent a total of 20 minutes on the date of the service which included preparing to see the patient, cchd-on-bdcf patient care, completing clinical documentation, obtaining and/or [...] be grammatical and typographical errors missed in proofreading.[facility] History of Present illness Narrative* Ortega Morrissey APRN.APPLICATIONS INSTRUCTOR - 11/22/2023 2:33 PM EDT Images from the original note were not included. REPRODUCTIVE ENDOCRINOLOGY AND INFERTILITY VIRTUAL VISIT PROGRESS NOTE SERVICE DATE: 11/22/2023 SERVICE TIME: 2:33 PM NAME: Lissa Rivas VIRTUAL VISIT PROGRESS NOTE This is a virtual visit. It required patient-provider interaction for the medical decision making as documented below. Patient name and birthday verified: Yes Location of patient: [place] Persons Present: patient I have communicated my name and active licensure. The patient's identity and physical location wereverified at the time of this visit. Either the patient or their legal telephone services sales representative has been informed of the [...] Once starting progesterone had intense mood swings/irritability [place] heart was beating slower than normal but [...] which included preparing to see the patient, ajpl-vr-hges patient care, completing clinical documentation, obtaining and/or [...] errors missed in proofreading. documented in this encounterPomerene Hospital08-26-2024 NoteHNO ID: [id number] Author: ERMA DONIS RN Service: ? Author [...] Erma Donis RN November 22, 2023 12:53 [facility]08-26-2024 History of Present illness Narrative* Erma [...] called patient. She will drive back to [place] now to get done. Erma Donis RN [...] 22, 2023 12:53 PM documented in this encounterPomerene Hospital08-19-2024 Telephone encounter Note * Telephone Encounter - Ortega Morrissey APRN.CNP - 11/15/2023 9:39 AM EDT Plan: Let 5mg/trigger/IUI #2 Ortega Morrissey APRN.CNP November 15, 2023 9:39 AM Please schedule the patient for the following- Location: [place] Provider: Nurse Visit type: Follicular scan Reason for visit/appointment notes: Follicular scan Date: 11/21 Time (requested): 0715 If slot is full, please schedule the closest open slot. Call to patient needed: no [facility]08-19-2024 Miscellaneous Notes* Telephone Encounter - Ortega Morrissey [...] 11/12/2023 1:55 PM EDT Pt had iui 7/30 , pt had negative preg 8/13 or 8/14 , pt started cycle 11/11 documented in this encounterPomerene Hospital08-16-2024 Telephone encounter Note * Telephone Encounter - Madeleine Orta PA-C - 11/12/2023 6:07 PM EDT Patient is planning IUI. FYI: DEXTER Mg. Please see the checklist Madeleine Orta PA-C November 12, 2023 6:07 PM [facility] Work Phone: 1(393) 719-558508-16-2024 Telephone encounter Note* Telephone Encounter - Keren Carcamo - 11/12/2023 1:55 PM EDT Pt had iui / , pt had negative preg 8/13 or 8/14 , pt started cycle 11/11 [facility]07-30-2024 Telephone encounter Note* Telephone Encounter - Ortega [...] seven days of my reply. See the [employer] message reply for my assessment and plan. I spent a total of 5 minutes reviewing the patient's prior medical records and current request for medical advice, prescribing medications or ordering tests (if applicable), replying to the patient, and documenting the encounter. [facility]07-30-2024 Miscellaneous Notes* Telephone Encounter - Ortega Morrissey [...] seven days of my reply. See the [employer] message reply for my assessment and plan. I spent a total of 5 minutes reviewing the patient's prior medical records and current request for medical advice, prescribing medications or ordering tests (if applicable), replying to the patient, and documenting the encounter. documented in this encounterPomerene Hospital07-30-2024 NoteHNO ID: [id number] Author: ORTEGA MORRISSEY APRN.CNP Service: ? Author [...] Cycle Day: 15 Last menstrual period: 10/12/2023 Knifley Protocol: UNIVERSAL PROTOCOL / SAFETY CHECKLIST Procedure [...] Rivas DATE: October 26, 2023 TIME: 11:36 [facility]07-30-2024 Procedure note* Ortega [...] Cycle Day: 15 Last menstrual period: 10/12/2023 Knifley Protocol: UNIVERSAL PROTOCOL / SAFETY CHECKLIST Procedure [...] DATE: October 26, 2023 TIME: 11:36 AM [facility]07-30-2024 Procedure note* Ortega Morrissey APRN.CNP - [...] Cycle Day: 15 Last menstrual period: 10/12/2023 Knifley Protocol: UNIVERSAL PROTOCOL / SAFETY CHECKLIST Procedure [...] 2023 TIME: 11:36 AM documented in this encounterPomerene Hospital07-26-2024 NoteHNO ID: [id number] Author: AYANNA TREVIZO MD Service: ? Author Type: Physician Type: Progress Notes Filed: 10/22/2023 23:02 Note Text: GAYATHRI Attending Physician Note: Ultrasound and lab results reviewed. Based on review of ultrasound and lab results, medication dose and follow up date plans provided. See cycle flowsheet for dosing details. Ayanna Trevizo MD, [facility]07-26-2024 NoteHNO ID: [id number] Author: ERMA DONIS RN Service: ? Author [...] Erma Donis RN October 22, 2023 1:38 [facility]CThe [facility] History of Present illness Narrative* Erma Donis [...] 22, 2023 1:38 PM documented in this encounterPomerene Hospital07-24-2024 Telephone encounter Note * Telephone Encounter - Ani Stovall APRN.CNP - 10/20/2023 3:10 PM EDT patient instructed to order trigger now so that she has it by Wednesday Ani Stovall APRN.CNP October 20, 2023 3:10 PM [facility]07-24-2024 Miscellaneous Notes* Telephone Encounter - Ani Stoavll APRN.CNP - 10/20/2023 3:10 PM EDT patient instructed to order trigger now so that she has it by Wednesday Ani Stovall APRN.CNP October 20, 2023 3:10 PM * Telephone Encounter - Keren Carcamo - 10/20/2023 2:26 PM EDT Pts pharmacy called and would like to know when she needs to order trigger shot documented in this encounterPomerene Hospital07-24-2024 Telephone encounter Note * Telephone Encounter - Keren Carcamo - 10/20/2023 2:26 PM EDT Pts pharmacy called and would like to know when she needs to order trigger shot [facility]07-16-2024 Telephone encounter Note* Telephone Encounter - Ortega Morrissey APRN.CNP - 10/12/2023 4:10 PM EDT The following approved medication requests have been transmitted electronically. Requested Prescriptions Signed Prescriptions Disp Refills Choriogonadotropin Pam,HumRec (OVIDREL) 250 mcg/0.5 mL syrg 0.5 mL 1 Sig: Inject 250 mcg subcutaneously one time only for 1 dose. Authorizing Provider: ORTEGA MORRISSEY APRN.CNP October 12, 2023 4:10 PM [facility]07-16-2024 Miscellaneous Notes* Telephone Encounter - Oretga Morrissey APRN.CNP - 10/12/2023 4:10 PM EDT [...] schedule the patient for the following- Location: [place] Provider: nurse Visit type: mid cycle Reason for visit/appointment notes: mid cycle non ivf Date: 10-22-23 Time (requested): 0700 If slot is full, please schedule the closest open slot. Call to patient needed: no * Telephone Encounter - Ayanna Wise - 10/12/2023 1:31 PM EDT Patient states she also needs information regarding trigger shot. Please call patient. [facility] Tele[facility] encounter Note * Telephone Encounter - [...] open slot. Call to patient needed: no [facility] Tele[facility] encounter Note* Telephone Encounter - Ayanna Wise - 10/12/2023 1:31 PM EDT Patient states she also needs information regarding trigger shot. Please call patient. [facility] Work Phone: 1(154) 871-670706-14-2024 History of Present illness Narrative* Ortega Morrissey [...] and birthday verified: Yes Location of patient: [place] Persons Present: patient I have communicated my name and active licensure. The patient's identity and physical location wereverified at the time of this visit. Either the patient or their legal telephone services sales representative has been informed of the risks and benefits of -- and alternatives to -- treatment through a remote evaluation andconsents to proceed with the evaluation remotely. Reason for visit: IUI Teach [facility] Primary GAYATHRI Physician: Dr. Kahn IUI Treatment Plan: Letrozole 5mg/trigger/IUI Partner's name/MRN: Brenton [id number] LMP: 07/23 IUI Checklist: Consultation: Done Registration of patient and partner: Done Financial Clearance: In process IUI Patient Education: ASRM IUI Patient Fact Sheet IUI Consent Form: sent today via [employer] [place] Orders: filed today Medications ordered today [...] Count Sperm M 592.20 % Motile Sperm (%NM + %GOODYEAR WELTER) >=40 % 64 Forward Progression 4 = [...] which included preparing to see the patient, [id number] patient care, completing clinical documentation, obtaining and/or [...] errors missed in proofreading. documented in this encounterP[facility]06-13-[facility]24 Telephone encounter Note * Telephone Encounter - Ortega Morrissey APRN.CNM - 09/09/2023 9:07 AM EDT The following approved medication requests have been transmitted electronically. Requested Prescriptions Signed Prescriptions Disp Refills medroxyPROGESTERone (PROVERA) 10 mg tablet 10 tablet 0 Sig: Take 1 tablet by mouth once daily. Authorizing Provider: ORTEGA MORRISSEY APRN.CNM September 09, 2023 9:07 AM [facility] Miscellaneous Notes* Telephone Encounter - Ortega Morrissey [...] to her lab results documented in this encounterP[facility]06-13-[facility]24 Telephone encounter Note * Telephone Encounter - [...] 0.2 hCG Quantitative, Blood <5.0 mIU/mL <0.6 [facility] Tele[facility] encounter Note* Telephone Encounter - Ortega Spivey - 09/08/2023 9:58 AM EDT Iui Patient called in regards to her lab results [facility] Tele[facility] encounter Note* Telephone Encounter - Amparo [...] Mcclellan RN September 02, 2023 1:11 PM [facility] Miscellaneous Notes* Telephone Encounter - Amparo Mcclellan [...] follow up with patient. documented in this encounterPomerene Hospital06-06-2024 Telephone encounter Note * Telephone Encounter - [...] Mcclellan RN September 02, 2023 11:41 AM [facility] Telephone encounter Note* Telephone Encounter - Ayanna Wise - 09/02/2023 10:53 AM EDT Please follow up with patient. [facility] Work Phone: 1(188) 762-635605-23-2024 Progress note* Fede Hairston MD - 08/19/2023 11:11 AM EDT [facility] Date: 08/19/2023 Consultation Requested By: [...] Hysteroscopy Laparoscopy OPK (Ovulation Predictor Kit) Ovarian [place] [facility] 10.91 High 01/04/2023 Saline Ultrasound Semen [...] no OCCUPATION/EXERCISE: Occupation: [employer] and [employer] / [employer] Exercise: daily walking Partner Information Partner's Name: [...] visit. Either the patient or their legal telephone services sales representative has been informed of the risks and benefits of -- and alternatives to -- treatment through a remote evaluation andconsents to proceed with the evaluation remotely. I spent a total of 30 minutes on the date of the service which included preparing to see the patient, oszi-th-lymr patient care, completing clinical documentation, counseling and educating the patient/family/caregiver, ordering medications, tests, or procedures, communicating results to the patient/ family/caregiver, and care coordination (not separately reported). Kim Khan MD [place] [address]-23-2024 Consult note* Fede Hairston MD - 08/19/2023 11:11 AM EDT [facility] Date: 08/19/2023 Consultation Requested By: [...] Hysteroscopy Laparoscopy OPK (Ovulation Predictor Kit) Ovarian [place] [facility] 10.91 High 01/04/2023 Saline Ultrasound Semen [...] no OCCUPATION/EXERCISE: Occupation: [employer] and [employer] / [employer] Exercise: daily walking Partner Information Partner's Name: [...] visit. Either the patient or their legal telephone services sales representative has been informed of the risks and benefits of -- and alternatives to -- treatment through a remote evaluation andconsents to proceed with the evaluation remotely. I spent a total of 30 minutes on the date of the service which included preparing to see the patient, ywza-cb-zaki patient care, completing clinical documentation, counseling and educating the patient/family/caregiver, ordering medications, tests, or procedures, communicating results to the patient/ family/caregiver, and care coordination (not separately reported). Kim Khan MD documented in this encounterPomerene Hospital05-23-2024 Plan of care note* GAYATHRI Plan Note [...] daily Comments: None Kim Khan MD 08/19/2023 [facility] Miscellaneous Notes* GAYATHRI Plan Note - Fede [...] Kim Khan MD 08/19/2023 documented in this encounterPomerene Hospital05-21-2024 History of Present illness Narrative* Мария Laboy [...] for , who presents to [facility] care. Her genetic testing indicates she has [...] for , who presents to [facility] care. Her genetic testing indicates she has [...] care. Мария Laboy MD documented in this encounterPomerene Hospital05-21-2024 Nurse Note* Raina Samuels CT - 08/17/2023 10:47 AM EDT Tobacco Use: Never Was smoking cessation packet given? N/A - Patient is a non-smoker or quit >1 year ago. Was a referral initiated?N/A Patient is a non-smoker [facility] Note* Raina Samuels CT - 08/17/2023 10:47 AM EDT Tobacco Use: Never Was smoking cessation packet given? N/A - Patient is a non-smoker or quit >1 year ago. Was a referral initiated?N/A Patient is a non-smoker documented in this encounterPomerene Hospital05-21-2024 History of Present illness Narrative* Mirta Gallagher [...] Gallagher MD, MPH Endocrinology documented in this encounterPomerene Hospital05-21-2024 Instructions* Patient Instructions* Latosha Wesley MA - 08/17/2023 9:53 AM EDT Thank you [facility] Department of Endocrinology, Diabetes and Metabolism. Did you know that you need to call 48 hours in advance of your scheduled visit, if you are unable to make your appointment? The Endocrinology and Metabolism [facility] thanks you for your commitment, because patients not showing to their appointment results in a lost opportunity for patients to receive [facility] the [facility]. To Cancel an appointment, please choose one of the following: - Call the Appointment Call Center at [phone] - From [employer], Go to Appointments - Cancel Appts If cancelling, consider your need to reschedule to prevent further delays in your care. To Schedule an appointment, please choose one of the following: - Call the Appointment Call Center at [phone] - From [employer], Go to Appointments - Request an Appt documented in this encounterPomerene Hospital05-02-2024 History of Present illness Narrative* Flip Newman, RT(R) - 07/29/2023 1:00 PM EDT Radiology [...] PATIENT PRESENTS WITH AN IMPLANTABLE OR ATTACHED COIL INSPECTOR: No RADIOLOGY DEPARTMENT: General X-ray: Exam(s) Completed: HSG PERIPHERAL IV DATA: Not applicable SIGNED BY: RT Clark(R) July 29, 2023 1:58 PM documented in this encounterPomerene Hospital05-02-2024 NoteHNO ID: [id number] Author: FLIP NEWMAN RT(Loc) Service: Radiology Author [...] PATIENT PRESENTS WITH AN IMPLANTABLE OR ATTACHED COIL INSPECTOR: No RADIOLOGY DEPARTMENT: General X-ray: Exam(s) Completed: HSG PERIPHERAL IV DATA: Not applicable SIGNED BY: RT Clark(R) July 29, 2023 1:58 [facility] NoteHNO ID: [id number] Author: ORTEGA MORRISSEY APRN.CN Service: ? Author [...] bilaterally without evidence of loculation. Ortega Morrissey APRN.CNKettering Health Washington [id number] Procedure note* Ortega Morrissey APRN.CNM - 07/29/2023 1:00 PM EDT Nelson TRINH HYSTEROSALPINGOGRAM NOTE Date: July 29, [...] without evidence of loculation. Ortega Morrissey APRN.CNM [facility] Procedure note* Ortega Morrissey APRN.CNM - 07/29/2023 1:00 PM EDT KAREN TRINH HYSTEROSALPINGOGRAM NOTE Date: July 29, [...] loculation. Ortega Morrissey APRN.CNM documented in this encounterPomerene Hospital03-20-2024 Miscellaneous Notes* Addendum Note - Мария Laboy [...] Мария Laboy. Patient will be updated via [employer] when orders are placed forimaging. Fina Davalos MS, [facility] Licensed, Certified Genetic Counselor documented in this encounterPomerene Hospital03-18-2024 Telephone encounter Note * Telephone Encounter - [...] to try for children. Elsa Puentes MS, [facility] Licensed, Certified Genetic Counselor [facility] Work Phone: [phone]) 939-675403-18-2024 Miscellaneous Notes* Telephone Encounter - Elsa Puentes [...] to try for children. Elsa Puentes MS, [facility] Licensed, Certified Genetic Counselor * Telephone Encounter - Elsa Puentes LGC - 06/10/2023 4:04 PM EDT Patient name and was confirmed at initiation of discussion. 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 Please see [employer] message for further discussion. CHRISTIE Magdaleno Licensed, Certified Genetic Counselor documented in this encounterPomerene Hospital03-14-2024 Telephone encounter Note * Telephone Encounter - Elsa Puentes LGC - 06/10/2023 4:04 PM EDT Patient name and was confirmed at initiation of discussion. 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 Please see [employer] message for further discussion. CHRISTIE Magdaleno Licensed, Certified Genetic Counselor [facility]02-27[facility] Miscellaneous Notes* Telephone Encounter - Ortega Morrissey [...] 2023 10:06 AM * Telephone Encounter - Ayanna Wise - 05/25/2023 9:59 AM EST [facility] in [place] is pharmacy. Please follow up with patient. documented in this encounterPomerene Hospital02-19-2024 Miscellaneous Notes* Telephone Encounter - Elsa Puentes LGC - 05/17/2023 11:24 AM EST Spoke to [...] detect the familial mutation. 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 The patient was offered SDHA single site mutation analysis through [employer] or self pay Integrated BRACAnalysis with [employer] and SDHA single site mutation analysis through [employer]. After considering the risks, benefits, and limitations, the patient chose to pursue and provided informed consent for the following testing: SELF PAY Integrated BRACAnalysis with [employer] and SDHA single site mutation analysis through [employer]. The [employer]sk panel includes APC, MICHAEL, AXIN2, BAP1, BARD1, BMPR1A, BRCA1, BRCA2, BRIP1, CDH1, CDK4, CDKN2A, CHEK2, CTNNA1, EGFR, EPCAM, FH, FLCN, GREM1, HOXB13, MEN1, MET, MITF, MLH1, MSH2, MSH3, MSH6, MUTYH, NTHL1, PALB2, PMS2, POLD1, POLE, PTEN, RAD51C, RAD51D, RET, SDHA, SDHB, SDHC, SDHD, SMAD4, STK11, TERT, TP53, TSC1, TSC2, and VHL OBOOK looks at genes related to inherited breast, ovarian, pancreatic, prostate, colon, uterine, kidney, lung, endocrine, and stomach cancer, as well as inherited colon polyp and melanoma syndromes. We discussed that an NGS panel can rarely result in an unexpected finding which may or may not be related to the presenting phenotype. We discussed that [employer] may contact the patient by text or phone call regarding billing. The patient should watch for this communication and respond promptly. The patient should contact [facility] directly with any billing questions (ph. [phone]). Elsa Puentes MS, [facility] Licensed, Certified Genetic Counselor * Telephone Encounter [...] NTHL1, PALB2, PDGFRA, PMS2, POLD1, POLE, POT1, CVXFC9C, PTCH1, PTEN, RAD51C, RAD51D, RB1, RET, SDHA, SDHAF2, SDHB, SDHC, SDHD, SMAD4, SMARCA4, SMARCB1, SMARCE1, STK11, SUFU, DHHM778, TP53, TSC1, TSC2, and VHL The Multi-Cancer [...] READY TO MOVE FORWARD. Elsa Puentes MS, [facility] Licensed, Certified Genetic Counselor documented in this encounterPomerene Hospital01-24-2024 NoteHNO ID: [id number] Author: ELSA PUENTES LGC Service: ? Author Type: Genetic Counselor Type: Progress Notes Filed: 05/18/2023 16:44 Note Text: [facility] Consultation Note Genetic Counselor: Elsa Puentes MS, [facility] Patient: Lissa Rivas Patient Name and confirmed at initiation of visit. The patient provided consent for a virtual visit by Rachel Jerome. I have communicated my name and active licensure. The patient's identity and physical location were verified at the time of this visit. Either the patient or their legal telephone services sales representative has been informed of the [...] , descent and paternal ancestors are of Welsh descent. There is no Ashkenazi Worship ancestry. There is no known consanguinity. A [...] point. We also revi (more content not included)...[id number] History of Present illness Narrative* Elsa Puentes LGC - 04/21/2023 12:33 PM EST Images from the original note were not included. [facility] Consultation Note Genetic Counselor: Elsa Puentes MS, [facility] Patient: Lissa Rivas Patient Name and confirmed at initiation of visit. The patient provided consent for a virtual visit by [employer]. I have communicated my name and active licensure. The patient's identity and physical location were verified at the time of this visit. Either the patient or their legal telephone services sales representative has been informed of the [...] , descent and paternal ancestors are of Welsh descent. There is no Ashkenazi Worship ancestry. There is no known consanguinity. A [...] extend to insurances such as life insurance, meterman care, or disability. The patient was seen for a total of 30 minutes, greater than 50% of which was spent dznv-sf-ubvv counseling. This plan is being carried out under the oversight of Dr. Annamarie Joe. This note will also be sent to the referring provider via the electronic medical record. Elsa Puentes MS, [facility] CC: Dr. Fede Buiis Eng documented in this encounterPomerene Hospital01-21-2024 Miscellaneous Notes* GAYATHRI Plan Note - Fede [...] answered. Kim Khan MD documented in this encounterPomerene Hospital01-10-2024 Consult note* Fede Hairston MD - 04/07/2023 [...] used ocp since teenager. Was seen med [facility] for PCOS and placed on metformin. She [...] Hysteroscopy Laparoscopy OPK (Ovulation Predictor Kit) Ovarian [place] [facility] 10.91 High 01/04/2023 Saline Ultrasound Semen [...] Procedure Laterality Date EYE SURGERY HX 03/2020 PRKJosefina FAMILY HISTORY Problem Relation Age of Onset [...] which included preparing to see the patient, btbu-ln-jopp patient care, counseling and educating the patient/family/caregiver, and ordering medications, tests, or procedures. I have communicated my name and active licensure. The patient's identity and physical location wereverified at the time of this visit. Either the patient or their legal telephone services sales representative has been informed of the risks and benefits of -- and alternatives to -- treatment through a remote evaluation andconsents to proceed with the evaluation remotely. Kim Khan MD documented in this [facility]11[facility]13-[facility] History of Present illness Narrative* Fede Hairston MD - 02/08/2023 3:03 PM EST Patient is here for ultrasound. Please see image section in Epic for results. Kim Khan MD documented in this [facility]11-09-[facility]23 Miscellaneous Notes* Telephone Encounter - Ortega Morrissey APRN.CNP - 02/04/2023 2:12 PM EST 21 day progesterone level ordered. Ortega Morrissey APRN.CNP February 04, 2023 2:12 PM * Telephone Encounter - Keren Carcamo - 02/04/2023 2:05 PM EST Pt states she has started her letrozole today documented in this [facility]03-31-[facility] Evaluation note* Encounter Date Diagnosis Assessment Notes [...] May, Other Puncture wound material was printed [employer] Other 01-01-2021 History general Narrative - Reported* Type Description Date Medical History asthma Surgical History laser eye surgery, bilateral Hospitalization History Rash, age 5 [employer] Other Evaluation note* Diagnosis Encounter for fertility testing- Primary Fertility testing [facility]* Diagnosis Secondary amenorrhea Absence of menstruation PCOS (polycystic ovarian syndrome) Polycystic ovaries [facility]* Diagnosis PCOS (polycystic ovarian syndrome)- Primary Polycystic ovaries Fertility testing [facility]* Diagnosis Family history of cancer- Primary Family history of unspecified malignant neoplasm Family history of gene mutation [facility]* Diagnosis Family history of breast cancer- Primary Family history of malignant neoplasm of breast Family history of prostate cancer Family history of malignant neoplasm of prostate [facility]* Diagnosis Procreative management- Primary Unspecified procreative management [facility] Diagnosis Monoallelic mutation of SDHA gene- Primary Localized enlarged lymph nodes Enlargement of lymph nodes Intra-abdominal and pelvic swelling, mass and lump, unspecified site [facility]* Diagnosis Encounter for fertility testing- Primary Fertility testing Pre-procedure lab exam Pre-procedural laboratory examination [facility]* Diagnosis Fertility testing [facility]* Diagnosis Monoallelic mutation of SDHA gene- Primary Obesity, Class III, BMI 40-49.9 (morbid obesity) (HCC) Morbid obesity [facility]* Diagnosis Irregular menstrual cycle- Primary PCOS (polycystic ovarian syndrome) Polycystic ovaries [facility]* Diagnosis Monoallelic mutation of SDHA gene- Primary [facility]* Diagnosis Secondary amenorrhea- Primary Absence of menstruation [facility]* Diagnosis Secondary amenorrhea- Primary Absence of menstruation [facility]* Diagnosis Screen for sexually transmitted diseases- Primary Screening examination for venereal disease Secondary amenorrhea Absence of menstruation Female infertility Female infertility of unspecified origin documented in this encounter [facility] note* Diagnosis Procreation management investigation and testing- Primary Other investigation and testing for procreative management documented in this encounter [facility] note* Diagnosis Treatment plan provided- Primary documented in this encounter [facility] note* Diagnosis Female infertility Female infertility of unspecified origin documented in this encounter [facility] note* Diagnosis Encounter for artificial insemination- Primary Artificial insemination documented in this encounter [facility] note* Diagnosis Procreation management investigation and testing- Primary Other investigation and testing for procreative management documented in this encounter [facility] note* Diagnosis Procreation management investigation and testing- Primary Other investigation and testing for procreative management Female infertility Female infertility of unspecified origin documented in this encounter [facility] note* Diagnosis Procreation management investigation and testing- Primary Other investigation and testing for procreative management documented in this encounter [facility] note* Diagnosis Procreation management investigation and testing- Primary Other investigation and testing for procreative management documented in this encounter [facility] note* Diagnosis Female infertility Female infertility of unspecified origin documented in this encounter [facility] note* Diagnosis Procreation management investigation and testing- Primary Other investigation and testing for procreative management documented in this encounter [facility] note* Diagnosis Female infertility- Primary Female infertility of unspecified origin documented in this encounter [facility] note* Diagnosis Female infertility- Primary Female infertility of unspecified origin documented in this encounter [facility] note* Diagnosis Encounter for artificial insemination- Primary Artificial insemination documented in this encounter [facility] note* Diagnosis Procreation management investigation and testing- Primary Other investigation and testing for procreative management documented in this encounter [facility] note* Diagnosis Female infertility- Primary Female infertility of unspecified origin documented in this encounter [facility] note* Diagnosis Encounter for gynecological examination without abnormal finding- Primary Screening for malignant neoplasm of cervix Screening for malignant neoplasm of the cervix Desire for BV (bacterial vaginosis) Unspecified vaginitis and vulvovaginitis documented in this encounter [facility] note* Diagnosis Procreation management investigation and testing- Primary Other investigation and testing for procreative management [facility] Diagnosis Female infertility Female infertility of unspecified origin [facility]* Diagnosis Female infertility- Primary Female infertility of unspecified origin [facility]* Diagnosis Otalgia of both ears- Primary Temporomandibular joint disorder Unspecified temporomandibular joint disorders Chronic allergic rhinitis Postnasal drip documented in this encounter [facility] Work Phone: Evaluation note* Diagnosis Supervision of with history of infertility, first trimester- Primary examination or test, unconfirmed [facility]* Diagnosis Encounter for test, result positive- Primary examination or test, positive result documented in this encounter [facility]* Diagnosis Supervision of with history of infertility, first trimester- Primary documented in this encounter [facility]* Diagnosis PCOS (polycystic ovarian syndrome)- Primary Polycystic ovaries documented in this encounter [facility] note* Diagnosis Encounter for supervision of normal first in first trimester Encounter for drug screening [facility] Diagnosis Supervision of with history of infertility, first trimester documented [facility]* Diagnosis Procreation management investigation and testing- Primary Other investigation and testing for procreative management documented [facility] this [facility]* Diagnosis Missed menses , unspecified gestational age Encounter for supervision of normal first in first trimester 9 weeks gestation of [facility] Diagnosis First trimester state, incidental 13 weeks gestation of Urinary tract infection without hematuria, site unspecified [facility] Diagnosis Onychomycosis- Primary Dermatophytosis of nail Onychodystrophy Other specified disease of nail Xerosis cutis Other specified disease of sebaceous glands Fissure in skin of both feet [facility] Diagnosis Second trimester state, incidental 14 weeks gestation of Spotting in Spotting complicating , unspecified as to episode of care or not applicable [facility] Diagnosis Monoallelic mutation of SDHA gene- Primary [facility] Diabetes mellitus screening Screening for diabetes mellitus Second trimester state, incidental 22 weeks gestation of [facility] Diagnosis Annual physical exam- Primary Routine general medical examination at a health care facility Hepatic steatosis Other chronic 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 Polycystic ovaries Vitamin D deficiency Palpitations Murmur Undiagnosed cardiac murmurs documented in this encounter [facility]* Diagnosis Second trimester state, incidental 26 weeks gestation of documented in this encounter [facility] noteNo assessment information available[facility] Work Phone: Evaluation note* Diagnosis Gestational diabetes mellitus (GDM) in third trimester, gestational diabetes method of control unspecified- Primary [facility] Diagnosis Monoallelic mutation of SDHA gene- Primary Gestational diabetes mellitus (GDM) in third trimester, gestational diabetes method of control unspecified (HCC) [facility] Diagnosis 28 weeks gestation of Third trimester state, incidental Gestational diabetes mellitus (GDM), antepartum, gestational diabetes method of control unspecified Herpes simplex virus type 1 (HSV-1) dermatitis documented in this encounter [facility]* Diagnosis Insulin controlled gestational diabetes mellitus (GDM) in third trimester Abnormal liver enzymes Abnormal genetic test Gestational diabetes requiring insulin Abnormal maternal glucose tolerance, complicating , childbirth, or the puerperium, unspecified as to episode of care Elevated blood pressure affecting , antepartum [facility] Diagnosis History of gestational diabetes- Primary Personal history of other genital system and obstetric disorders Third trimester (HHS-HCC) state, incidental 31 weeks gestation of (HHS-HCC) [facility] Diagnosis Gestational diabetes requiring insulin Abnormal maternal glucose tolerance, complicating , childbirth, or the puerperium, unspecified as to episode of care Elevated blood pressure affecting , antepartum Insulin controlled gestational diabetes mellitus (GDM) in third trimester Abnormal liver enzymes [facility] Diagnosis Insulin controlled gestational diabetes mellitus (GDM) in third trimester- Primary Gestational diabetes requiring insulin Abnormal maternal glucose tolerance, complicating , childbirth, or the puerperium, unspecified as to episode of care [facility] Diagnosis Third trimester (HHS-HCC) [...] third trimester- Primary [facility]* Diagnosis induced hypertension, antepartum (HHS-HCC)- Primary Transient hypertension of , antepartum Third trimester (HHS-HCC) state, incidental 35 weeks gestation of (HHS-HCC) [facility]* Diagnosis Third trimester (HHS-HCC) state, incidental 36 weeks gestation of (HHS-HCC) induced hypertension, antepartum (HHS-HCC) Transient hypertension of , antepartum [facility]* Diagnosis 36 weeks gestation of - Primary Gestational diabetes requiring insulin Abnormal maternal glucose tolerance, complicating , childbirth, or the puerperium, unspecified as to episode of care Pre-eclampsia in third trimester Non-sustained ventricular tachycardia (CMS-HCC) documented [facility] filedocumented in this encounter [facility] filedocument[facility] in this encounter [facility] filedocumented in this encounter [facility] filedocumented in this [facility] filedocumented in this [facility] filedocumented in this encounter [facility] on filedocumented in this encounter [facility]Not on filedocumented in this encounter [facility]Not on filedocumented in this encounter [facility]Not on filedocumented in this encounter [facility] (narrative)* Diagnostic Procedure Only (Routine) - Pending Review Specialty Diagnoses / Procedures Referred By Contac t Referred To Contact XR IMAGING Diagnoses Fertility testing Procedures XR HYSTEROSALPINGOGRAM CATH & SALINE/CONTRAST SONOHYSTER/HYSTEROSALPI Fede Hairston MD [address] [place] [address] [place] [id number] Referral ID Status Reason Start Date Expiration Date Visits Requested Visits Authorized [id number] Pending Review Auto-Generat ed Referral 04/18/2023 05/17/2024 1 1 [facility] for referral (narrative)* Diagnostic Procedure Only (Routine) - Pending Review Specialty Diagnoses / Procedures Referred By Contac t Referred To Contact [facility] Diagnoses Female infertility Procedures FOLLICULAR US WHI US PELVIC NONOBSTETRIC IMAGE JOE LIMITED/F/U Ortega Morrissey APRN.CNM [address] [facility] [place] [address] [facility] [address] [place] [address] Referral ID Status Reason Start Date Expiration Date Visits Requested Visits Authorized [id number] Pending Review Auto-Generat ed Referral 09/10/2023 09/09/2024 1 1 [facility] for referral (narrative)* Diagnostic Procedure Only (Routine) - New Request Specialty Diagnoses / Procedures Referred By Contac t Referred To Contact [facility] Diagnoses Female infertility Procedures FOLLICULAR US WHI US PELVIC NONOBSTETRIC IMAGE JOE LIMITED/F/U Ortega Morrissey APRN.APPLICATIONS INSTRUCTOR [address] [facility] [address] [address] Referral ID Status Reason Start Date Expiration Date Visits Requested Visits Authorized [id number] New Request Auto-Generat ed Referral 12/13/2023 12/12/2024 1 1 [facility] for referral (narrative)* Diagnostic Procedure Only (Routine) - New Request Specialty Diagnoses / Procedures Referred By Contac t Referred To Contact [facility] Diagnoses Female infertility Procedures FOLLICULAR US I US PELVIC NONOBSTETRIC IMAGE DCMTN LIMITED/F/U Ortega Morrissey APRN.APPLICATIONS INSTRUCTOR [address] [facility] [place] [address] [id number] [place] [address] Referral ID Status Reason Start Date Expiration Date Visits Requested Visits Authorized [id number] New Request Auto-Generat ed Referral 4 02/14/2025 1 1 [facility] for referral (narrative)* Diagnostic Procedure Only (Routine) - Authorized Specialty Diagnoses / Procedures Referred By Contac t Referred To Contact [facility] Diagnoses Supervision of with history of infertility, first trimester Procedures OBSTETRIC ULTRASOUND I US PREG UTERUS AFTER 1ST TRIMEST GESTATION Ortega Morrissey APRN.APPLICATIONS INSTRUCTOR [id number] [facility] [place] [address] [facility] [address] [place] [address] Referral ID Status Reason Start Date Expiration Date Visits Requested Visits Authorized [id number] Authorized Auto-Generat ed Referral 4 03/17/2025 1 1 [facility] ([facility]ative)No reason for referral information availableP[facility] Hospital Work Phone: [facility] Narr[facility]* Diagnostic Procedure Only (Routine) - Closed Specialty Diagnoses / Procedures Referred By Blair t Referred To Contact [facility] Diagnoses Supervision of with history of infertility, first trimester Procedures OBSTETRIC ULTRASOUND [facility] US PREG UTERUS AFTER 1ST TRIMEST 1 GESTATION Ortega Morrissey APRN.APPLICATIONS INSTRUCTOR [address] [facility] [place] [address] [address] Referral ID Status Reason Start Date Expiration Date V isits Requested Visits Authorized [id number] Closed Auto-Generate d Referral 03/17/2024 03/17/2025 1 1 [facility] Summary Purpose Family History Relationship Condition Age at Onset Recorded Date/T lucero father Diabetes mellitus Unknown Heart disease Unknown mother Hypertension Unknown Advance Directives Advance Directive Response Recorded Date/ Time Advance Directives No February 2:57pm Reason for Referral Specialty Diagnoses / Procedures Referred By Blair t Referred To Contact [facility] Diagnoses Female infertility Procedures FOLLICULAR US I US PELVIC NONOBSTETRIC IMAGE DCMTN LIMITED/F/U Ortega Morrissey APRN.APPLICATIONS INSTRUCTOR [address] [facility] [place] [address] [address] [place] [address] Referral ID Status Reason Start Date Expiration Date Visits Requested Visits Authorized [id number] Authorized Benefit Check 11/15/2023 03/28/2024 1 1 Specialty Diagnoses / Procedures Referred By Blair t Referred To Contact Ortega Morrissey APRN.APPLICATIONS INSTRUCTOR [address] [facility] [place] [place] [address] Referral ID Status Reason Start Date Expiration Date Visits Re quested Visits Authorized [id number] Closed 1 1 Specialty Diagnoses / Procedures Referred By Blair t Referred To Contact Diagnoses Obesity, Class III, BMI 40-49.9 (morbid obesity) (HCC) Procedures ENDOCRINE MEDICAL WEIGHT MANAGEMENT OFFICE/OUTPATIENT [facility] 60 MINUTES Mirta Gallagher MD [address] [place] [address] Referral ID Status Reason Start Date Expiration Date Visits Requested Visits Authorized [id number] Authorized PCP Requested Referral 08/17/2023 08/16/2024 1 1 Specialty Diagnoses / Procedures Referred By Contac t Referred To Contact CT IMAGING Diagnoses Intra-abdominal and pelvic swelling, mass and lump, unspecified site Procedures CT ABDOMEN W IVCON CT ABDOMEN W/CONTRAST Мария Laboy MD [address] [place] [address] Ct [facility] Referral ID Status Reason Start Date Expiration Date Visits Requested Visits Authorized [id number] Pending Review Auto-Generat ed Referral 06/16/2023 07/15/2024 1 1 Specialty Diagnoses / Procedures Referred By Contac t Referred To Contact CT IMAGING Diagnoses Localized enlarged lymph nodes Procedures CT CHEST W IVCON DIAGNOSTIC COMPUTED TOMOGRAPHY THORAX W/CONTRAST Мария Laboy MD [id number] [facility] [place] [address] Referral ID Status Reason Start Date Expiration Date Visits Requested Visits Authorized [id number] Pending Review Auto-Generat ed Referral 06/16/2023 07/15/2024 1 1 Specialty Diagnoses / Procedures Referred By Contac t Referred To Contact CT IMAGING Diagnoses Localized enlarged lymph nodes Procedures CT NECK SOFT TISSUE W IVCON CT SOFT TISSUE NECK W/CONTRAST MATERIAL Мария Laboy MD [id number] [facility] [place] [address] Referral ID Status Reason Start Date Expiration Date Visits Requested Visits Authorized [id number] Pending Review Auto-Generat ed Referral 06/16/2023 07/15/2024 [...] and content) DATE CREATED AUTHOR 12/06/2019 [facility] DATE CREATED AUTHOR AUTHOR'S ORGANIZ ATION 07/24/2023 [facility] DATE CREATED AUTHOR AUTHOR'S ORGANIZ ATION 02/25/2024 [facility] DATE CREATED AUTHOR AUTHOR'S ORGANIZ ATION 03/11/2024 [place] DATE CREATED AUTHOR AUTHOR'S ORGANIZ ATION 03/11/2024 [facility] DATE CREATED AUTHOR AUTHOR'S ORGANIZ ATION 09/20/2024 [facility] DATE CREATED AUTHOR AUTHOR'S ORGANIZ ATION 10/23/2024 [facility] DATE CREATED AUTHOR AUTHOR'S ORGANIZ ATION 10/24/2024 [facility] DATE CREATED AUTHOR AUTHOR'S ORGANIZ ATION 10/24/2024 [facility] dical Specialists EPIC REASON FOR VISIT (unrecogniz ed section and content) Reason Comments Infertility Specialty Diagnoses / Procedures Referred By Blair beltran Referred To Contact [facility] Diagnoses Female infertility Procedures FOLLICULAR US WHI US PELVIC NONOBSTETRIC IMAGE DCMTN LIMITED/F/U Ortega Morrissey, STEWARD/STEWARDESS SMOKE ROOM.APPLICATIONS INSTRUCTOR [address] [facility] [place] [address] [facility] [address] [place] [address] Referral ID Status Reason Start Date Expiration Date V isits Requested Visits Authorized [id number] Closed Benefit Check 02/16/2024 03/28/2024 1 1 Reason Comments started letrozole Specialty Diagnoses / Procedures Referred By Blair beltran Referred To Contact [facility] Diagnoses Secondary amenorrhea PCOS (polycystic ovarian syndrome) Procedures PELVIC US WHI US PELVIC NONOBSTETRIC REAL-TIME IMAGE COMPLETE Fede Hairston MD [address] [place] [address] [address] Referral ID Status Reason Start Date Expiration Date V isits Requested Visits Authorized [id number] Closed Benefit Check 01/21/2023 03/28/2023 1 1 Reason Comments Follow Up Reason Comments Follow Up Reason Comments Appointment Reason Comments refill letrozol/cycle to start in next w te-moak Reason Comments [facility] - Other Hereditary Para ganglioma-Pheochromocytoma Syndrome clinic Reason Comments Results Genetic Reason Comments Nurse Visit Specialty Diagnoses / Procedures Referred By Contac t Referred To Contact XR IMAGING Diagnoses Fertility testing Procedures XR HYSTEROSALPINGOGRAM CATH & SALINE/CONTRAST SONOHYSTER/HYSTEROSALPI HYSTEROSALPINGOGRAPHY RS&I URINE TEST Fede Haisrton MD [address] [place] [address] [place] [address] Referral ID Status Reason Start Date Expiration Date V isits Requested Visits Authorized [id number] Closed Benefit Check 07/19/2023 03/28/2024 1 1 Reason Comments paraganglioma Reason Comments New Patient SHDA ref by Fina Tate Reason Comments lmp 07/23 no cycle since then Reason Comments Patient Question Reason Comments Treatment Planning Reason Comments Ortega lmp today/re us day 11-13 for iui Reason Comments trigger shot Specialty Diagnoses / Procedures Referred By Contac t Referred To Contact [facility] Diagnoses Female infertility Procedures FOLLICULAR US WHI US PELVIC NONOBSTETRIC IMAGE DCMTN LIMITED/F/U Ortega Morrissey, STEWARD/STEWARDESS SMOKE ROOM.APPLICATIONS INSTRUCTOR [address] [facility] [place] [address] [facility] [address] [place] [address] Referral ID Status Reason Start Date Expiration Date Visits Re quested Visits Authorized [id number] Closed 09/14/2023 03/28/2024 1 1 Specialty Diagnoses / Procedures Referred By Blair t Referred To Contact [facility] Diagnoses Encounter for other procreative management Procedures ARTIFIC INSEMINATION INTRAUTERIN Ortega Morrissey, DEBBIE.APPLICATIONS INSTRUCTOR [address] [facility] [place] [address] Ortega Morrissey APRN.APPLICATIONS INSTRUCTOR [address] [facility] [place] [address] Referral ID Status Reason Start Date Expiration Date V isits Requested Visits Authorized [id number] Closed Benefit Check 09/17/2023 03/16/2024 1 1 Reason Comments iui 10/25 , cd 1 11/11 Reason Comments Treatment Planning Referral ID Status Reason Start Date Expiration Date V isits Requested Visits Authorized [id number] Closed Benefit Check 11/15/2023 03/28/2024 1 1 Specialty Diagnoses / Procedures Referred By Blair beltran Referred To Contact [facility] Diagnoses Encounter for other procreative management Procedures ARTIFIC INSEMINATION INTRAUTERIN Deshawn Riojas MD [address] [place] [address] Lab [facility] [address] [place] [address] Referral ID Status Reason Start Date Expiration Date V isits Requested Visits Authorized [id number] Closed Financial Clearance Required - Self Pay 11/27/2023 02/25/2024 1 1 Reason Comments LMP 12/12/23/ set up monitored cycle Patient Update Referral ID Status Reason Start Date Expiration Date V isits Requested Visits Authorized [id number] Closed Benefit Check 12/15/2023 03/28/2024 1 1 Reason Comments IUI Specialty Diagnoses / Procedures Referred By Blair t Referred To Contact [facility] Diagnoses Encounter for other procreative management Female infertility, unspecified Procedures ARTIFIC INSEMINATION INTRAUTERIN Self Whi Gayathri [facility] [address] [address] [place] [address] Referral ID Status Reason Start Date Expiration Date Visits Requested Visits Authorized [id number] Authorized Benefit Check 09/15/2023 03/16/2024 2 2 [...] Visit Reason Comments Toenail Problem 29 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 presents to day with concerns of toenail [...] control unspecified Saravanan Ahumada R, DO [address] [facility] [place] [address] Phone: tel: fax: M[facility]- Medicine at [facility] [address] [facility] [place] [address] Phone: tel: fax: Referral ID Status Reason Start Date Expiration Date Visits Requested Visits Authorized [id number] Pending Review Specialty Services Required 08/29/2024 08/29/2025 [...] or prosecute any alcohol or drug abuse patient.[facility] HospitalIn the event this information is protected by the Federal Confidentiality of Alcohol and Drug Abuse Patient Records regulations: The Federal rules restrict any use of the information to criminally investigate or prosecute any alcohol or drug abuse patient.[facility] HospitalIn the event this information is protected by the Federal Confidentiality of Alcohol and Drug Abuse Patient Records regulations: The Federal rules restrict any use of the information to criminally investigate or prosecute any alcohol or drug abuse patient.[facility] HospitalIn the event this information is protected by the Federal Confidentiality of Alcohol and Drug Abuse Patient Records regulations: The Federal rules restrict any use of the information to criminally investigate or prosecute any alcohol or drug abuse patient.[facility] HospitalIn the event this information is protected by the Federal Confidentiality of Alcohol and Drug Abuse Patient Records regulations: The Federal rules restrict any use of the information to criminally investigate or prosecute any alcohol or drug abuse patient.[facility] HospitalIn the event this information is protected by the Federal Confidentiality of Alcohol and Drug Abuse Patient Records regulations: The Federal rules restrict any use of the information to criminally investigate or prosecute any alcohol or drug abuse patient.[facility] HospitalIn the event this information is protected by the Federal Confidentiality of Alcohol and Drug Abuse Patient Records regulations: The Federal rules restrict any use of the information to criminally investigate or prosecute any alcohol or drug abuse patient.[facility] HospitalIn the event this information is protected by the Federal Confidentiality of Alcohol and Drug Abuse Patient Records regulations: The Federal rules restrict any use of the information to criminally investigate or prosecute any alcohol or drug abuse patient.[facility] HospitalIn the event this information is protected by the Federal Confidentiality of Alcohol and Drug Abuse Patient Records regulations: The Federal rules restrict any use of the information to criminally investigate or prosecute any alcohol or drug abuse patient.[facility] HospitalIn the event this information is protected by the Federal Confidentiality of Alcohol and Drug Abuse Patient Records regulations: The Federal rules restrict any use of the information to criminally investigate or prosecute any alcohol or drug abuse patient.[facility] HospitalIn the event this information is protected by the Federal Confidentiality of Alcohol and Drug Abuse Patient Records regulations: The Federal rules restrict any use of the information to criminally investigate or prosecute any alcohol or drug abuse patient.[facility] HospitalIn the event this information is protected by the Federal Confidentiality of Alcohol and Drug Abuse Patient Records regulations: The Federal rules restrict any use of the information to criminally investigate or prosecute any alcohol or drug abuse patient.[facility] HospitalIn the event this information is protected by the Federal Confidentiality of Alcohol and Drug Abuse Patient Records regulations: The Federal rules restrict any use of the information to criminally investigate or prosecute any alcohol or drug abuse patient.[facility] HospitalIn the event this information is protected by the Federal Confidentiality of Alcohol and Drug Abuse Patient Records regulations: The Federal rules restrict any use of the information to criminally investigate or prosecute any alcohol or drug abuse patient.[facility] HospitalIn the event this information is protected by the Federal Confidentiality of Alcohol and Drug Abuse Patient Records regulations: The Federal rules restrict any use of the information to criminally investigate or prosecute any alcohol or drug abuse patient.[facility] HospitalIn the event this information is protected by the Federal Confidentiality of Alcohol and Drug Abuse Patient Records regulations: The Federal rules restrict any use of the information to criminally investigate or prosecute any alcohol or drug abuse patient.[facility] HospitalIn the event this information is protected by the Federal Confidentiality of Alcohol and Drug Abuse Patient Records regulations: The Federal rules restrict any use of the information to criminally investigate or prosecute any alcohol or drug abuse patient.[facility] HospitalIn the event this information is protected by the Federal Confidentiality of Alcohol and Drug Abuse Patient Records regulations: The Federal rules restrict any use of the information to criminally investigate or prosecute any alcohol or drug abuse patient.[facility] HospitalIn the event this information is protected by the Federal Confidentiality of Alcohol and Drug Abuse Patient Records regulations: The Federal rules restrict any use of the information to criminally investigate or prosecute any alcohol or drug abuse patient.[facility] HospitalIn the event this information is protected by the Federal Confidentiality of Alcohol and Drug Abuse Patient Records regulations: The Federal rules restrict any use of the information to criminally investigate or prosecute any alcohol or drug abuse patient.[facility] HospitalIn the event this information is protected by the Federal Confidentiality of Alcohol and Drug Abuse Patient Records regulations: The Federal rules restrict any use of the information to criminally investigate or prosecute any alcohol or drug abuse patient.[facility] HospitalIn the event this information is protected by the Federal Confidentiality of Alcohol and Drug Abuse Patient Records regulations: The Federal rules restrict any use of the information to criminally investigate or prosecute any alcohol or drug abuse patient.[facility] HospitalIn the event this information is protected by the Federal Confidentiality of Alcohol and Drug Abuse Patient Records regulations: The Federal rules restrict any use of the information to criminally investigate or prosecute any alcohol or drug abuse patient.[facility] HospitalIn the event this information is protected by the Federal Confidentiality of Alcohol and Drug Abuse Patient Records regulations: The Federal rules restrict any use of the information to criminally investigate or prosecute any alcohol or drug abuse patient.[facility] HospitalIn the event this information is protected by the Federal Confidentiality of Alcohol and Drug Abuse Patient Records regulations: The Federal rules restrict any use of the information to criminally investigate or prosecute any alcohol or drug abuse patient.[facility] HospitalIn the event this information is protected by the Federal Confidentiality of Alcohol and Drug Abuse Patient Records regulations: The Federal rules restrict any use of the information to criminally investigate or prosecute any alcohol or drug abuse patient.[facility] HospitalIn the event this information is protected by the Federal Confidentiality of Alcohol and Drug Abuse Patient Records regulations: The Federal rules restrict any use of the information to criminally investigate or prosecute any alcohol or drug abuse patient.[facility] HospitalIn the event this information is protected by the Federal Confidentiality of Alcohol and Drug Abuse Patient Records regulations: The Federal rules restrict any use of the information to criminally investigate or prosecute any alcohol or drug abuse patient.[facility] HospitalIn the event this information is protected by the Federal Confidentiality of Alcohol and Drug Abuse Patient Records regulations: The Federal rules restrict any use of the information to criminally investigate or prosecute any alcohol or drug abuse patient.[facility] HospitalIn the event this information is protected by the Federal Confidentiality of Alcohol and Drug Abuse Patient Records regulations: The Federal rules restrict any use of the information to criminally investigate or prosecute any alcohol or drug abuse patient.[facility] HospitalIn the event this information is protected by the Federal Confidentiality of Alcohol and Drug Abuse Patient Records regulations: The Federal rules restrict any use of the information to criminally investigate or prosecute any alcohol or drug abuse patient.[facility] HospitalIn the event this information is protected by the Federal Confidentiality of Alcohol and Drug Abuse Patient Records regulations: The Federal rules restrict any use of the information to criminally investigate or prosecute any alcohol or drug abuse patient.[facility] HospitalIn the event this information is protected by the Federal Confidentiality of Alcohol and Drug Abuse Patient Records regulations: The Federal rules restrict any use of the information to criminally investigate or prosecute any alcohol or drug abuse patient.[facility] HospitalIn the event this information is protected by the Federal Confidentiality of Alcohol and Drug Abuse Patient Records regulations: The Federal rules restrict any use of the information to criminally investigate or prosecute any alcohol or drug abuse patient.[facility] HospitalIn the event this information is protected by the Federal Confidentiality of Alcohol and Drug Abuse Patient Records regulations: The Federal rules restrict any use of the information to criminally investigate or prosecute any alcohol or drug abuse patient.[facility] HospitalIn the event this information is protected by the Federal Confidentiality of Alcohol and Drug Abuse Patient Records regulations: The Federal rules restrict any use of the information to criminally investigate or prosecute any alcohol or drug abuse patient.[facility] HospitalIn the event this information is protected by the Federal Confidentiality of Alcohol and Drug Abuse Patient Records regulations: The Federal rules restrict any use of the information to criminally investigate or prosecute any alcohol or drug abuse patient.[facility] HospitalIn the event this information is protected by the Federal Confidentiality of Alcohol and Drug Abuse Patient Records regulations: The Federal rules restrict any use of the information to criminally investigate or prosecute any alcohol or drug abuse patient.[facility] HospitalIn the event this information is protected by the Federal Confidentiality of Alcohol and Drug Abuse Patient Records regulations: The Federal rules restrict any use of the information to criminally investigate or prosecute any alcohol or drug abuse patient.[facility] HospitalIn the event this information is protected by the Federal Confidentiality of Alcohol and Drug Abuse Patient Records regulations: The Federal rules restrict any use of the information to criminally investigate or prosecute any alcohol or drug abuse patient.[facility] HospitalIn the event this information is protected by the Federal Confidentiality of Alcohol and Drug Abuse Patient Records regulations: The Federal rules restrict any use of the information to criminally investigate or prosecute any alcohol or drug abuse patient.[facility] HospitalIn the event this information is protected by the Federal Confidentiality of Alcohol and Drug Abuse Patient Records regulations: The Federal rules restrict any use of the information to criminally investigate or prosecute any alcohol or drug abuse patient.[facility] HospitalIn the event this information is protected by the Federal Confidentiality of Alcohol and Drug Abuse Patient Records regulations: The Federal rules restrict any use of the information to criminally investigate or prosecute any alcohol or drug abuse patient.[facility] HospitalIn the event this information is protected by the Federal Confidentiality of Alcohol and Drug Abuse Patient Records regulations: The Federal rules restrict any use of the information to criminally investigate or prosecute any alcohol or drug abuse patient.[facility] HospitalIn the event this information is protected by the Federal Confidentiality of Alcohol and Drug Abuse Patient Records regulations: The Federal rules restrict any use of the information to criminally investigate or prosecute any alcohol or drug abuse patient.[facility] HospitalIn the event this information is protected by the Federal Confidentiality of Alcohol and Drug Abuse Patient Records regulations: The Federal rules restrict any use of the information to criminally investigate or prosecute any alcohol or drug abuse patient.[facility] HospitalIn the event this information is protected by the Federal Confidentiality of Alcohol and Drug Abuse Patient Records regulations: The Federal rules restrict any use of the information to criminally investigate or prosecute any alcohol or drug abuse patient.[facility] HospitalIn the event this information is protected by the Federal Confidentiality of Alcohol and Drug Abuse Patient Records regulations: The Federal rules restrict any use of the information to criminally investigate or prosecute any alcohol or drug abuse patient.[facility] HospitalIn the event this information is protected by the Federal Confidentiality of Alcohol and Drug Abuse Patient Records regulations: The Federal rules restrict any use of the information to criminally investigate or prosecute any alcohol or drug abuse patient.[facility] Care Teams (unrecognized sec tion and content) Team Status: Active Member Role Status Sean Velazquez MD Primary Care Provider Active Team Status: Active Member Role Status Sean Velazquez MD Primary Care Provider Active St art: August 24, 2024 Jaime Davies RN MSN ANP-C Other Provider Active Start: August 24, 2024 Iveth Ding MD Attending Provider Active Sta rt: August 24, 2024 Team Status: Active Member Role Status Sean Velazquez MD Primary Care Provider Active St art: September 14, 2024 Jaime Davies RN MSN ANP-C Other [...] October 18, 2024 End: October 18, 2024 Social Sciences Department Chair Relationship Specialty Start Date End Date Robles Goldsmith, DO [address] [place] [phone] Referring Obstetrics 10/13/22 Social Sciences Department Chair Relationship Specialty Start Date End Date Robles Goldsmith, [address] [place] [address] Referring Obstetrics 10/13/22 Social Sciences Department Chair Relationship Specialty Start Date End Date Robles Goldsmith, [address] [place] [address] Referring Obstetrics 10/13/22 Social Sciences Department Chair Relationship Specialty Start Date End Date Robles Goldsmith, [address] [place] [address] Referring Obstetrics 10/13/22 Social Sciences Department Chair Relationship Specialty Start Date End Date Robles Goldsmith, [address] [place] [address] Referring Obstetrics 10/13/22 Social Sciences Department Chair Relationship Specialty Start Date End Date Robles Goldsmith DO [address] [place] [address] Referring Obstetrics 10/13/22 Social Sciences Department Chair Relationship Specialty Start Date End Date Robles Goldsmith, [address] [place] [address] Referring Obstetrics 10/13/22 Social Sciences Department Chair Relationship Specialty Start Date End Date Robles Goldsmith, [address] [place] [address] Referring Obstetrics 10/13/22 Social Sciences Department Chair Relationship Specialty Start Date End Date Robles Goldsmith, [address] [place] [address] Referring Obstetrics 10/13/22 Social Sciences Department Chair Relationship Specialty Start Date End Date Robles Goldsmith, DO [address] [place] [address] Referring Obstetrics 10/13/22 Social Sciences Department Chair Relationship Specialty Start Date End Date Robles Goldsmith, DO [address] [place] [address] Referring Obstetrics 10/13/22 Social Sciences Department Chair Relationship Specialty Start Date End Date Robles Goldsmith, DO [address] [place] [address] Referring Obstetrics 10/13/22 Social Sciences Department Chair Relationship Specialty Start Date End Date Robles Goldsmith, [address] [place] [address] Referring Obstetrics 10/13/22 Social Sciences Department Chair Relationship Specialty Start Date End Date Robles Goldsmith, DO [address] [place] [address] Referring Obstetrics 10/13/22 Social Sciences Department Chair Relationship Specialty Start Date End Date Robles Goldsmith, DO [address] [place] [address] Referring Obstetrics 10/13/22 Social Sciences Department Chair Relationship Specialty Start Date End Date Robles Goldsmith, DO [address] [place] [address] Referring Obstetrics 10/13/22 Social Sciences Department Chair Relationship Specialty Start Date End Date Robles Goldsmith, DO [address] [place] [address] Referring Obstetrics 10/13/22 Social Sciences Department Chair Relationship Specialty Start Date End Date Robles Goldsmith, DO [address] [place] [address] Referring Obstetrics 10/13/22 Social Sciences Department Chair Relationship Specialty Start Date End Date Robles Goldsmith, DO [address] [place] [address] Referring Obstetrics 10/13/22 Social Sciences Department Chair Relationship Specialty Start Date End Date Lito Velazquez MD [address] [place] [address] PCP - General Internal Medicine 10/05/22 Social Sciences Department Chair Relationship Specialty Start Date End Date Lito Velazquez MD [address] [place] [address] PCP - General Internal Medicine 10/05/22 Social Sciences Department Chair Relationship Specialty Start Date End Date Lito Velazquez MD [address] [place] [phone] PCP - General Internal Medicine 02/14/24 Social Sciences Department Chair Relationship Specialty Start Date End Date Robles Goldsmith DO [address] [place] [address] Referring Obstetrics 10/13/22 Social Sciences Department Chair Relationship Specialty Start Date End Date Lito Velazquez MD [address] [place] [address] PCP - General Internal Medicine 10/05/22 Social Sciences Department Chair Relationship Specialty Start Date End Date Robles Goldsmith DO [address] [place] [address] Referring Obstetrics 10/13/22 Social Sciences Department Chair Relationship Specialty Start Date End Date Lito Velazquez MD [address] [place] [address] PCP - General Internal Medicine 10/05/22 Social Sciences Department Chair Relationship Specialty Start Date End Date Lito Velazquez MD [address] [place] [address] PCP - General Internal Medicine 10/05/22 Social Sciences Department Chair Relationship Specialty Start Date End Date Lito Velazquez MD [address] [place] [address] PCP - General Internal Medicine 10/05/22 Social Sciences Department Chair Relationship Specialty Start Date End Date Lito Velazquez MD [address] [place] [address] PCP - General Internal Medicine 10/05/22 Social Sciences Department Chair Relationship Specialty Start Date End Date Lito Velazquez MD [address] [place] [address] PCP - General Internal Medicine 10/05/22 Social Sciences Department Chair Relationship Specialty Start Date End Date Robles Goldsmith DO [address] [place] [address] Referring Obstetrics 10/13/22 Josefina Harris, ARIC [address] [place] [address] Registered Nurse 04/12/24 Social Sciences Department Chair Relationship Specialty Start Date End Date Lito Velazquez MD [address] [place] [address] PCP - General Internal Medicine 10/05/22 Social Sciences Department Chair Relationship Specialty Start Date End Date Lito Velazquez MD [address] [place] [address] PCP - General Internal Medicine 10/05/22 Social Sciences Department Chair Relationship Specialty Start Date End Date Lito Velazquez MD [address] [place] [address] PCP - General Internal Medicine 10/05/22 Social Sciences Department Chair Relationship Specialty Start Date End Date Lito Velazquez MD [address] [place] [address] PCP - General Internal Medicine 10/05/22 Team Status: Inactive Member Role Status Dates Lito Velazquez MD Primary Care Provider Active St art: August 24, 2024 End: August 24, 2024 Jaime Davies , ARIC MSN ANP-C Attending Provider Act tucker Start: August 24, 2024 End: August 24, 2024 Social Sciences Department Chair Relationship Specialty Start Date End Date Robles Goldsmith DO [address] [place] [phone] Referring Obstetrics 10/13/22 [place] [address] [place] [address] Specialty Chute Boss 04/12/24 Social Sciences Department Chair Relationship Specialty Start Date End Date Lito Velazquez MD [address] [place] [address] PCP - General Internal Medicine 10/05/22 Social Sciences Department Chair Relationship Specialty Start Date End Date Lito Velazquez MD [address] [place] [address] PCP - General Internal Medicine 10/05/22 Social Sciences Department Chair Relationship Specialty Start Date End Date Lito Velazquez MD [address] [place] [address] PCP - General Internal Medicine 10/05/22 Social Sciences Department Chair Relationship Specialty Start Date End Date Lito Velazquez MD [address] [place] [address] PCP - General Internal Medicine 10/05/22 Social Sciences Department Chair Relationship Specialty Start Date End Date Lito Velazquez MD [address] [place] [address] PCP - General Internal Medicine 10/05/22 Social Sciences Department Chair Relationship Specialty Start Date End Date Robles Goldsmith DO [address] [place] [address] Referring Obstetrics 10/13/22 [place] [address] [place] [address] Specialty Chute Boss 04/12/24 Social Sciences Department Chair Relationship Specialty Start Date End Date Lito Velazquez MD [address] [place] [address] PCP - General Internal Medicine 10/05/22 Social Sciences Department Chair Relationship Specialty Start Date End Date Lito Velazquez MD [address] [place] [address] PCP - General Internal Medicine 10/05/22 Social Sciences Department Chair Relationship Specialty Start Date End Date Lito Velazquez MD [address] [place] [address] PCP - General Internal Medicine 10/05/22 Social Sciences Department Chair Relationship Specialty Start Date End Date Lito Velazquez MD [address] [place] [address] PCP - General Internal Medicine 10/05/22 Team Status: Inactive Member Role Status Dates Lito Velazquez MD Primary Care Provider Active St art: October 18, 2024 End: October 18, 2024 Kurt Sánchez MD Attending Provider Active Star t: October 18, 2024 End: October 18, 2024 Social Sciences Department Chair Relationship Specialty Start Date End Date Lito Velazquez MD [address] [place] [address] PCP - General Internal Medicine 10/05/22 Social Sciences Department Chair Relationship Specialty Start Date End Date Lito Velazquez MD [address] [place] [address] PCP - General Internal Medicine 10/05/22 Goals [...] BE BASED ON THE PRIMARY CLINICAL RECORDS. [email or web address] provides no warranty or guarantee of the accuracy or completeness of information in this document.
[2024-10-27 09:47] VITALS: BP 130/85; PULSE 82
== END 2024-10-27 09:54 | disposition home or self-care (01) ==
LOC: FBCO 09:06 → FBC 09:09
PROVIDERS: PCP Internal Medicine; Visit Provider Obstetrics & Gynecology
DX: O24.419 Gestational diabetes mellitus in pregnancy, unspecified control (principal)
CPT/HCPCS: 59025

== ENCOUNTER 2025-03-02 04:23 | Emergency (ER) | payer OTHER, SELFPAY ==
[2025-03-02 04:28] VITALS: BP 148/96; PULSE 81; TEMP 36.5; O2SAT 98; BMI 37.5
--- NOTE | 2025-03-02 04:46 | ECG_ITS ---
[facility] Test Date: 2025-03-02 Pat Name: LITO ROJAS Department: Room: - Gender: Female Bull Rider: : 1995 Requested By: [id number] Order Number: [id number] Reading MD: LEXY ESQUEDA M.D. Measurements Intervals [place] Rate: 68 P: 63 [place]: 136 QRS: 69 QRSD: 88 T: 74 QT: 392 QTc: 410 Interpretive Statements 1100 Sinus rhythm 8102 Low QRS voltage in chest leads 9120 atypical ECG No previous ECG available for comparison Electronically Signed On 03-02-2025 21:52:50 EST by LEXY ESQUEDA M.D.
--- NOTE | 2025-03-02 04:50 | ED.GENADUL1 ---
HPI HPI - General Adult General Chief complaint: Back Pain/Injury Stated complaint: CHEST PAIN, UPPER BACK PAIN, NAUSEA Time Seen by Provider: 03/02/25 04:27 Source: patient Mode of arrival: walk-in Limitations: no limitations History of Present Illness HPI narrative: 29-year-old female who is 4 months presents for evaluation of upper abdominal pain that radiates into her chest and back. The patient states that during her she was monitored for cardiomyopathy and sees a director of assisted living in [place]. She states that last night for dinner she had chicken noodle soup, a grilled cheese sandwich and chili cheese fries for dinner. Approximately 2 hours later she started having pain in her back and upper abdomen which radiates into her chest. She is nauseated but has not vomited. She denies any lower abdominal pain. She denies any dizziness shortness of breath or diaphoresis but states she feels like she cannot take a deep breath due to the pain in her upper abdomen. She has no lower extremity pain or swelling. States she was unable to sleep last night unless she was on her hands and knees with her knees underneath her and her head on the pillow. She does not drink or smoke. She is breast-feeding. She took 2 Tylenol around 10 PM. Related Data Allergies Allergy/AdvReac Type Severity Reaction Status Date / Time No Known Drug Allergies Allergy Verified 03/02/25 04:36 Opioid HPI Opioid Management Most Recent Opioid Data: Last Pain Scale 8 Today, 06:03 Last MAR Pain Assessment Today, 06:03 Ur Phencyclidine Scrn, (NEGATIVE) Negative 04/21/24, 16:18 Review of Systems ROS Status of ROS 10 or more systems reviewed and unremarkable except as noted in history and below PFSH PFSH Social History Little interest or pleasure in doing things: not at all Feeling down, depressed, or hopeless: not at all Exam Narrative Exam Narrative: Vital signs and Nursing Notes reviewed: Is afebrile with normal pulse, blood pressure is elevated 148/96, she is not hypoxic with pulse ox of 98% on room air General: Awake, alert, oriented, well-appearing moderately overweight female lying on her right side, no respiratory distress, no active vomiting HEENT: Normocephalic atraumatic, mucous membranes are moist and pink, eyes are clear, normal conjunctiva, vision is grossly intact Chest: Lungs are clear to auscultation with good air entry, there is no wheezing rhonchi or rales appreciated no accessory muscle use, patient is speaking in complete sentences-no chest wall tenderness to palpation CVS: Regular rate and rhythm S1-S2, no murmurs rubs or gallops, pulses are brisk and equal bilaterally ABD: Obese, soft, nondistended, epigastric and right upper quadrant tenderness with voluntary guarding, no pulsatile masses are appreciated, Extremities: Moving all extremities, no lower extremity tenderness or swelling noted, negative Homans' sign, radial, and dorsalis pedis pulses are brisk and equal bilaterally Skin: Normal in appearance without rash,pallor, petechiae or purpura Neuro: No focal deficits Constitutional Vital Signs, click to edit/add: Last Vital Signs Temp 97.7 F 03/02/25 04:28 Pulse 81 03/02/25 04:28 Resp 16 03/02/25 04:28 BP 148/96 H 03/02/25 04:28 Pulse Ox 98 03/02/25 04:28 O2 Del Method Room Air 03/02/25 04:28 Course Vital Signs Vital signs: Vital Signs Temperature 97.7 F 03/02/25 04:28 Pulse Rate 81 03/02/25 04:28 Respiratory Rate 16 03/02/25 04:28 Blood Pressure 148/96 H 03/02/25 04:28 Pulse Oximetry 98 03/02/25 04:28 Oxygen Delivery Method Room Air 03/02/25 04:28 Temperature 97.7 F 03/02/25 04:28 Pulse Rate 81 03/02/25 04:28 Respiratory Rate 16 03/02/25 04:28 Blood Pressure 148/96 H 03/02/25 04:28 Pulse Oximetry 98 03/02/25 04:28 Oxygen Delivery Method Room Air 03/02/25 04:28 Medical Decision Making MDM Narrative Medical decision making narrative: 29-year-old female who is 4 months after having a and breast-feeding presents for evaluation of upper back pain, chest pain and upper abdominal pain that started around 10 PM. She was unable to get comfortable all night and came to the emergency department. She had chili cheese fries around p.m. last night then her pain started around 10 PM. She also complains of some shortness of breath. She states she was being evaluated by [facility] during her for concern of cardiomyopathy. In the emergency department her vital signs were stable with elevated blood pressure at 148/96. EKG was a normal sinus rhythm with no acute changes. An IV was placed and she was medicated with IV fluids, Zofran and Toradol. This helped relieve her back pain but she had persistent abdominal pain and was unable to get comfortable. I explained to her that she would have to pump and dump her breastmilk and get a ride home if she was indeed discharged which she was agreeable with and she was remedicated with another dose of Zofran for nausea and Dilaudid for pain. Labs were ordered and are reviewed. She has a normal white count and stable hemoglobin. Electrolytes are normal. D-dimer is elevated at 0.91. Troponin is normal. She does have an elevated AST and ALT. Lipase and alkaline phosphatase are normal. CT scan of the chest abdomen pelvis was ordered and pending at the time of shift change. She will be signed out to the incoming physician at 7 AM. Lab Data Lab results reviewed: Yes I reviewed the patient's lab results Labs: Lab Results 03/02/25 Range/Units 05:00 WBC 6.7 (4.0-11.0) 10^3/uL RBC 4.31 (4.20-5.40) 10^6/uL Hgb 12.8 (12.0-16.0) g/dL Hct 38.0 (36.0-48.0) % MCV 88.2 (81.0-99.0) fL MCH 29.7 (26.7-34.0) pg MCHC 33.7 (29.9-35.2) g/dL RDW 14.4 (11.0-15.0) % Plt Count 229 (150-450) 10^3/uL MPV 10.6 (9.5-13.5) fL Neut % (Auto) 60.8 (43.0-75.0) % Lymph % (Auto) 27.0 (20.5-60.0) % Garland % (Auto) 7.5 (1.7-12.0) % Eos % (Auto) 3.7 (0.9-7.0) % Baso % (Auto) 0.9 (0.2-2.0) % Neut # (Auto) 4.1 (1.4-6.5) 10^3/uL Lymph # (Auto) 1.8 (1.2-3.8) 10^3/uL Garland # (Auto) 0.5 (0.3-0.8) 10^3/uL Eos # (Auto) 0.3 (0.0-0.7) 10^3/uL Baso # (Auto) 0.1 (0.0-0.1) 10^3/uL Abs Immat Gran (auto) 0.01 (0.00-0.03) 10^3/uL Imm/Tot Granulo (auto) 0.1 (0.0-0.5) % D-Dimer 0.95 H* (<=0.59) mg/L FEU Sodium 144 (136-145) mmol/L Potassium 4.0 (3.5-5.1) mmol/L Chloride 109 H (98-107) mmol/L Carbon Dioxide 26.1 (21.0-32.0) mmol/L Anion Gap 12.9 BUN 15.0 (7.0-18.0) mg/dL Creatinine 0.81 (0.55-1.02) mg/dL Est GFR ( Amer) >60 (>=60 mL/min/1.73m^2) Est GFR (Non-Af Amer) >60 (>=60 mL/min/1.73m^2) BUN/Creatinine Ratio 18.5 Glucose 108 H (74-106) mg/dL Calcium 9.2 (8.5-10.1) mg/dL Total Bilirubin 1.0 (0.2-1.0) mg/dL AST 358 H (15-37) U/L ALT 305 H (14-59) U/L Alkaline Phosphatase 105 (46-116) U/L Troponin I High Sens 4.5 (4.0-51.3) pg/mL Total Protein 7.2 (6.4-8.2) g/dL Albumin 3.8 (3.4-5.0) g/dL Globulin 3.4 g/dL Albumin/Globulin Ratio 1.1 Lipase 41.0 (16.0-77.0) U/L ECG Data Attestation: I personally reviewed and interpreted this ECG as follows: (Sinus rhythm 60 bpm, normal axis, normal intervals, no acute ST segment elevation or T wave inversion) Discharge Plan Discharge Patient Disposition: Still a Patient
--- OUTSIDE RECORDS SUMMARY | 2025-03-02 04:51 | XMS_ITS | Clinical Summary ---
Author Organization [facility] Address [address] [place] [address] Care Team Providers Care Nail Kegger Name Role Phone Omer Velazquez MD Primary Care Provider [phone] Allergies No known active allergies Medications MedicationSigDispense QuantityRefillsLast FilledStart DateEnd DateStatus MV-Min-Fe Fum-FA-DHA ( 1 PO) Take by mouthActive ibuprofen 800 MG tablet Take 800 mg by mouth every 8 (eight) hours5Active acetaminophen-codeine (Tylenol w/ Codeine #3) 300-30 MG tablet Take 1 tablet by mouth every 6 (six) hours if needed for severe painActive Active Problems ProblemNoted DateDiagnosed DateMonoallelic mutation of SDHA gene08/24/2023 Overview (08/24/2023): Follows with [facility]. Hepatic ifdosdvfj94/16/2024Vitamin D rytwedieiz75/17/2023enital herpes simplex 10/05/20226918Fkqnoogkria03/10/2023olycystic jdpswkw8710/05/2022Seasonal allergies 10/05/2022 Resolved Problems ProblemNoted DateDiagnosed DateResolved DateChronic fatigue /10/2023 01/12/2023 Encounters DateTypeDepartmentCare XspwDfaobnzvwuu18/15/2025 8:50 AM EDTPostpartum Visit [facility] [address] [place] [address] [place] [id number] Saravanan Ahumada DO 6 weeks follow-up ([facility]HS-HCC)from Last 3 Months Immunizations ImmunizationAdministration DatesNext IfmXCU4907/31/1995,1995DTaP, Cwuedpwhybd88/15/2001,08/04/1996,03/17/1996HPV 9-Dmkihe0408/12/2015,04/10/2015, 12/05/2014Hep B, Adolescent or Cdhncxnnf04/20/1996,1995,1995HiB, ymfizohlqqo32/09/1997,03/17/1996,1995,1995IPV08/10/2000Influenza, seasonal, injectable, preservative free01/30/2015MMR05/04/2023,08/10/2000, 04/21/1996Meningococcal EAS1R1108/12/2006Novel rcgvmecrf-V7Z6-70, preservative-free02/13/2009OPV105/18/1995,1995,1995Tdap06/26/2022 Torjbxljk06/09/1997 Family History Medical HistoryRelationNameCommentsAsthmaFatherEricAtrial fibrillationFatherEric COPDFatherEricDiabetesFatherEricHeart diseaseFatherEricHyperlipidemiaFatherEric HypertensionFatherEricKidney diseaseFatherEricStrokeFatherEricBreast cancer Maternal GrandmotherHypertensionMotherMissySDHAMotherMissyLung cancerMother's BrotherProstate cancerMother's BrotherBreast cancerMother's SisterArthritis Paternal GrandmotherRosemaryAtrial fibrillationPaternal GrandmotherRosemaryCOPD Paternal GrandmotherRosemaryDiabetesPaternal GrandmotherRosemaryHeart disease Paternal GrandmotherRosemaryStrokePaternal GrandmotherRosemaryAtrial fibrillationSisterRelationNameStatusCommentsFatherEricAliveMaternal Grandmother MotherMissyAliveMother's BrotherMother's SisterPaternal GrandmotherRosemary Sister Social History Tobacco UseTypesPacks/DayYears UsedDateSmoking Tobacco: NeverSmokeless Tobacco: NeverAlcohol UseStandard Drinks/WeekCommentsNever0 (1 standard drink = 0.6 oz pure alcohol)Caffeine intake:less than 100 mg dailyAUDIT-CAnswerDate RecordedQ1: How often do you have a drink containing alcohol?Never02/15/2024Q2: How many drinks containing alcohol do you have on a typical day when you are drinking? Patient does not drink02/15/2024Q3: How often do you have six or more drinks on one occasion?Never02/15/2024HQ-2AnswerDate RecordedPatient Health Questionnaire-2 [id number] and Gender Information ValueDate RecordedSex Assigned at BirthNot on fileLegal PtvMlefsx21/15/2023 7:14 PM EDTGender IdentityNot on fileSexual OrientationNot on fileOccupationIndustry Job Start DateJob End 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, 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 on fileNot on fileNot on file Last Filed Vital Signs Vital SignReadingTime TakenCommentsBlood Cxekhzjx272/78012/11/2024 8:59 AM EDT Fjjit138307/18/2024 9:20 AM EDTTemperature--Respiratory Rate--Oxygen Qjzgvzkdzg37% 07/18/2024 9:20 AM EDTInhaled Oxygen Concentration--Ylultc42 kg (205 lb) 12/11/2024 8:59 AM AVGMdeguv840 cm (5' 3 )07/18/2024 9:20 AM EDTBody Mass Index 36.31007/18/2024 9:20 AM EDT Plan of Treatment DateTypeDepartmentCare Team (Latest Contact Info)Ysfvyqcfgzt47/04/2026 11:00 AM ESTProcedure Visit [facility] [address] [place] [address] Saravanan Ahumada, [address] [facility] [address] [place] [id number] 07/24/2025 9:15 AM EDTOffice Visit [facility] [address] [place] [address] Health MaintenanceDue DateLast DoneCommentsCOVID-19 Vaccine (2024- season) 2024Influenza Vaccine (#1)/2015Pneumococcal Vaccine: Pediatrics (0 to 5 Years) and At-Risk Patients (6 to 64 Years)Aged OutNo longer eligible based on patient's age to complete this topic Goals GoalPatient Goal TypeAssociated ProblemsRecent ProgressPatient-Stated?Author Reminders Care PlanOB RemindersNoOpen Scheduling, Background Additional Health Concerns Active ProblemsNoted DateDiagnosed DateOB Xmqkdsthn09/02/2025 Insurance Care Teams Team MemberRelationshipSpecialtyStart DateEnd Omer Velazquez MD [address] [place] [address] PCP - GeneralInternal Medicine10/05/22
--- OUTSIDE RECORDS SUMMARY | 2025-03-02 04:51 | XMS_ITS | Clinical Summary ---
Author Organization [facility] Address [address] [place] [id number] Care Team Providers Care Operations Engineer Name Role Phone Rupal Robles Marquis DO Unavailable [phone] Josefina Harris RN Unavailable [phone] Allergies No known active allergies Medications MedicationSigDispense QuantityRefillsLast FilledStart DateEnd DateStatus PNV no.95/ferrous fum/folic ac ( ORAL) Take 1 tablet by mouth once daily.Active Active Problems ProblemNoted DateDiagnosed DateObesity, Class III, BMI 40-49.9 (morbid obesity) 08/17/2023Monoallelic mutation of SDHA gene08/17/2023Fertility srwawtp4207/29/2023 Seasonal yoktjpyxo72/olycystic Obesity due to excess /05/20225636Rmjqslcwegz71/10/2023 12/29/2022enital herpes pcncmxb66eneralized anxiety disorder hronic fatigue ytplmdgc36 Resolved Problems ProblemNoted DateDiagnosed DateResolved DateGERD (gastroesophageal reflux disease)/ Family History Medical HistoryRelationCommentsArrhythmiaFatherAtrial fibrillationAsthmaFather COPDFatherDiabetesFatherHeart diseaseFatherHyperlipidemiaFatherHypertension FatherKidney DiseaseFatherStrokeFatherArrhythmiaHalf-sisterAtrial fibrillation Breast CancerMaternal AuntBreast CancerMaternal GrandmotherProstate Cancer Maternal Uncle 1metastaticLung CancerMaternal Uncle 2Breast CancerMaternal great-grandmotherHypertensionMotherArrhythmiaPaternal GrandmotherAtrial fibrillationArthritisPaternal GrandmotherCOPDPaternal GrandmotherDiabetes Paternal GrandmotherHeart diseasePaternal GrandmotherStrokePaternal Grandmother BllapzlwWspnhqSggoeexwJnderbKtlnfXiqm-mbbibvpWneygGdws-erzarpDpfwrFvugeaji Aunt AliveMaternal GrandmotherAliveMaternal Uncle 1Maternal Uncle 2AliveMaternal great-grandmotherDeceasedMotherAlivePaternal GrandfatherDeceasedPaternal GrandmotherDeceased Social History Tobacco UseTypesPacks/DayYears UsedDateSmoking Tobacco: NeverSmokeless Tobacco: Never Tobacco Cessation:Counseling Given: No Alcohol UseStandard Drinks/WeekCommentsYes0 (1 standard drink = 0.6 oz pure alcohol)rare, sociallyArea Deprivation IndexAnswerDate RecordedNational Score (1-100), lower number is lower yahw830912/21/2023State Score (1-10), lower number is lower pmdn2804Data from: https://www.neighborhoodatlas.[facility].edu/. Last address used for detmeufigbu[address]/21/2023CommentsUnknownSex and Gender InformationValueDate RecordedSex Assigned at QhjoqJqtdwi23/09/2023 6:38 PM EDT Legal VskGyjkcq81/18/2023 10:39 AM EDTGender GnvxfzoxHzisia98/09/2023 6:38 PM EDTSexual OrientationNot on file Last Filed Vital Signs Vital SignReadingTime TakenCommentsBlood Ystpmrzy706/7905 10:02 AM EDT Rukep380308/17/2023 10:02 AM EDTTemperature--Respiratory Rate--Oxygen Saturation-- Inhaled Oxygen Concentration--Zkfpoi737.1 kg (229 lb 8 oz)08/17/2023 10:02 AM HUEArpcrj433 cm (5' 3 )01/04/2023 8:44 AM EDTBody Mass Index40.6501/04/2023 8:44 AM EDT Plan of Treatment Health MaintenanceDue DateLast DoneCommentsDepression Trkanvxkv99/06/2014 Cervical Cancer Siigcvulf18/06/2017Covid-19 Vaccine ( season) 2024Influenza Vaccine (#1)511/06/2014, 02/13/2009DTaP,Tdap,Td Vaccine (7 - Td or Tdap)/, 08/10/2000, 08/04/1996, Additional history existsHepatitis B PzuamszVjdyfvcgi56/20/1996, 1995, 1995HPV EbmwkzfAebigxypo58/16/2016, 04/10/2015, 12/05/2014HIV ScreeningCompleted 09/13/2023Hepatitis C BfhktkpapTaueklfnd92/17/2024 Procedures Procedure NamePriorityDate/TimeAssociated DiagnosisCommentsHIV 1/2 COMBO WITH REFLEX TO JEMTPKQOLZYENBQMhypxxa64/17/2024 8:52 AM EDT Screen for sexually transmitted diseases HEPATITIS C ANTIBODY IA WITH OVGNUXUVWLOXZrdbsqg30/17/2024 8:52 AM EDT Screen for sexually transmitted diseases from Last 3 Months or Most Recently Relevant to Health Maintenance Results * HIV 1/2 COMBO WITH REFLEX TO DIFFERENTIATION (09/13/2023 8:52 AM EDT)Component ValueRef RangeTest MethodAnalysis TimePerformed AtPathologist SignatureHIV 12 Combo (Ag/Ab)OcjioypspnyWfujnhhrwrg17/17/2024 9:15 PM EDTCMOUNT [facility] LABHIV-1/2 AB (Confirmatory)09/13/2023 9:15 PM EDTCMOUNT CARMEL [facility] LABComment:Test not indicated.HIV Anbaheetlvdidu43/17/2024 9:15 PM EDT [facility] LABComment: No evidence of HIV-1 or HIV-2 infection. Should recent infection be suspected, repeat testing may be considered 2-3 weeks after this draw. [place] Rev. Code 3701.243(E): This information has been disclosed to you from confidential records protected from disclosure by state law. ??You shall make no further disclosure of this information without the specific, written, and informed release of the individual to whom it pertains or as otherwise permitted by state law. A general authorization for the release of medical or other information is not sufficient for the purpose of the release of HIV test results or diagnoses. Specimen (Source)Anatomical Location / LateralityCollection Method / Volume Collection TimeReceived TimeBloodBLOOD SPECIMEN / UnknownVenipuncture / Unknown 09/13/2023 8:52 AM EDT09/13/2023 8:52 AM EDT Narrative Authorizing ProviderResult TypeResult StatusLauren Mindzora PHYSICIAN SURGEON.CNPLABORATORY Final ResultPerforming OrganizationAddressCity/State/ZIP CodePhone Number [facility] [address] * HEPATITIS C ANTIBODY IA WITH CONFIRMATION (09/13/2023 8:52 AM EDT)Component ValueRef RangeTest MethodAnalysis TimePerformed AtPathologist SignatureHep C Antibody EYFtosmpylComzoejb87/17/2024 9:06 PM EDTCMOUNT CARMEL [facility] LABComment:The result suggests no evidence of active infection with Hepatitis C virus. Should recent infectionbe suspected, repeat testing may be considered 4-6 weeks after this draw.Specimen (Source)Anatomical Location / Laterality Collection Method / VolumeCollection TimeReceived TimeBloodBLOOD SPECIMEN / UnknownVenipuncture / Ralyalg0609/13/2023 8:52 AM EDT09/13/2023 8:52 AM EDT Narrative Authorizing ProviderResult TypeResult StatusLauren Mindzora PHYSICIAN SURGEON.CNPLABORATORY Final ResultPerforming OrganizationAddressCity/State/ZIP CodePhone Number [facility] [address] from Last 3 Months or Most Recently Relevant to Health Maintenance [address] [place] [address] Care Teams Team MemberRelationshipSpecialtyStart DateEnd Date Robles Goldsmith DO [address] [facility] [address] [place] [id number] ReferringObstetrics10/13/22 [place] [phone] [place] [address] Specialty Care Coordinator04/12/24
--- OUTSIDE RECORDS SUMMARY | 2025-03-02 04:51 | XMS_ITS | CCD ---
Author Organization [facility] Care Team Providers Care Relationship Specialist Name Role Phone LITO VELAZQUEZ Admitting Unavailable LITO VELAZQUEZ Attending Unavailable Eliza Josefina Unavailable Vero Goldsmith DO Unavailable [phone] TANBELLA, SONALIERUT Referring Unav ailable Lito Velazquez MD Primary Care Provider YADY HOWARD Referring Unavailable TANTIBHEDJOANNA, JULMARY Referring Unav ailable TANBELLA, FEDE Referring Unav ailLito Li MD Primary Care Provider RUBY CANO Attending Unavailable LITO VELAZQUEZ Primary Care Unavailable USHA BLACKWELL Attending Unavailable LITO VELAZQUEZ Primary Care Unavailable Josefina Harris RN Unavailable Lito Velazquez MD Primary Care Provider Jie Davies RN Attending Provider [phone] Unavailable Primary Care Provider UnavailJosefina Thomas RN Unavailable GALLAGHER, ROSY Attending Unavailable ATTARAN, DESHAWN Referring Unavailable ATTARAN, DESHAWN Attending Unavailable MINDZORA, GAGE Referring Unavailable MINDZORA, GAGE Referring Unavailable MINDZORA, GAGE Attending Unavailable MINDZORA, GAGE Referring Unavailable GALLAGHER, ROSY Referring Unavailable MINDZORA, GAGE Attending Unavailable MINDZORA, GAGE Referring Unavailable MINDZORA, GAGE Referring Unavailable MINDZORA, GAGE Referring Unavailable MINDZORA, GAGE Attending Unavailable MINDZORA, GAGE Referring Unavailable TANTIBHEDHYANGKUL, JULIERUT Attending Unav ailable MINDZORA, GAGE Attending Unavailable SELF Referring Unavailable TANTIBHEDHYANGKUL, JULIERUT Attending Unav ailable MINDZORA, GAGE Referring Unavailable VANESSA VO Attending Unavailable MINDZORA, GAGE Referring Unavailable FRANKLIN LABOY Attending Unavailable Samson CORBETT, Jie Ribeiro Other Provider Toña MUKHERJEE, Iveth Attending Provider Manjula MUKHERJEE, Jassi Perez Attending Provider Gonzalo MUKHERJEE, Kurt Attending Provider Cesar MUKHERJEE, Lito Referring Provider NEREYDA ZHENG Attending Unavailable ZITA, SARAVANAN R Referring Unavailable BRIAN POE Attending Unavailable ZITA, SARAVANAN R Referring Unavailable VIRGEN, SIRIA Attending Unavailable ZITA, SARAVANAN R Referring Unavailable VIRGEN, SIRIA Attending Unavailable ZITA, SARAVANAN R Referring Unavailable RAN CORONA Attending Unavailable ZITA, SARAVANAN R Referring Unavailable MARQUITA WALLACE Admitting Unavailable MARQUITA WALLACE Attending Unavailable MEDICINE, MATERNAL Consulting Unavail able PETRA DIEZ Consulting Unavailable MARQUITA WALLACE Admitting Unavailable MARQUITA WALLACE Attending Unavailable Angie Ramirez APRN Attending Provider Rupal MCDANIEL, Vero Marquis Unavailable ZITA, SARAVANAN Attending Unavailable MARJORIE FERRER Attending Unavailable ZITA, SARAVANAN Attending Unavailable ZITA, SARAVANAN Referring Unavailable ZITA, SARAVANAN Attending Unavailable LITO VELAZQUEZ Attending Unavailable RUPAL LEONE Attending Unavailable ZITA, SARAVANAN Attending Unavailable ZITA, SARAVANAN Referring Unavailable ZITA, SARAVANAN Attending Unavailable LITO VELAZQUEZ Referring Unavailable VERO GOLDSMITH Attending Unavailable ZITA, SARAVANAN Attending Unavailable ZITA, SARAVANAN Attending Unavailable ZITA, SARAVANAN Attending Unavailable ZITA, SARAVANAN Attending Unavailable ZITA, SARAVANAN Attending Unavailable ZITA, SARAVANAN Attending Unavailable ZITA, SARAVANAN Attending Unavailable Cesar MUKHERJEE, Lito Primary Care Provider Lito Velazquez Primary Care Unavailable Kurt Sánchez Admitting Unavailable Kurt Sánchez Attending Unavailable Lito Velazquez Primary Care Unavailable Kurt Sánchez Admitting Unavailable Gonzalo, Kurt Attending Unavailable Lito Velazquez Primary Care Unavailable Jie Davies Admitting Unavailable Jie Davies Attending Unavailable Angie Ramirez Admitting Unavailable Angie Ramirez Attending Unavailable iLto Velazquez Primary Care Unavailable Medications Current Medications MedicationDrug Class(es)DatesSig (Normalized)Sig (Original)acetaminophen 500 mg oral tablet (12 sources)Start: 80-48-7201lkhj 2 tablets by mouth every eight hours acetaminophen (TYLENOL EXTRA STRENGTH) 500 mg tablet Take 2 tablets (1,000 mg total) by mouth every8 (eight) hours. 30 tablet 11/02/2024 ActiveStart: 06-25-2019 End: 81-37-3698ekhw 2 capsules by mouth every four to six hours as needed for painAcetaminophen 325 mg capsule Discontinued 650 MG PO EVERY 4-6 HOURS as needed for pain 60 June 25, 2019 12:00am October 17, 2024 9:50amacetaminophen 300 mg / codeine phosphate 30 mg oral tablet (5 sources)Opioid Agonisttake 1 tablet by mouth every six hours as needed for painacetaminophen-codeine (Tylenol w/ Codeine #3) 300-30 MG tablet Take 1 tablet by mouth every 6 (six)hours if needed for severe pain Activeacyclovir 400 mg oral tablet (20 sources)Herpesvirus Nucleoside Analog DNA Polymerase Inhibitor, Herpes Simplex Virus Nucleoside Analog DNA Polymerase Inhibitor, Herpes Zoster Virus Nucleoside Analog DNA Polymerase InhibitorStart: 10-02-2024 End: 88-70-8915dvjs 1 tablet by mouth in the morningacyclovir (Zovirax) 400 MG tablet Indications: Herpes simplex Take 1 tablet (400 mg) by mouth in the morning and 1 tablet (400 mg) before bedtime. 60 tablet 11 10/02/2024 11/01/2024 [id number] 200 actuat albuterol 0.09 mg/actuat metered dose inhaler (20 sources)beta2-Adrenergic AgonistStart: 36-58-4065csyt 1 puff(s) by inhalation every four to six hours as neededStart: 08-15-2024 End: 25-60-7213hnnr 2 puff(s) by inhalation every six hours for wheezing albuterol HFA (Ventolin HFA) 90 mcg/act inhaler Indications: Seasonal allergies Inhale 2 puffs every 6 (six) hours if needed for wheezing 18 g 5 08/15/2024 11/09/2024 DiscontinuedBlood Glucose Monitoring Suppl (D-Care Glucometer) w/Device kit (20 sources)Start: 08-25-2024 End: 14-36-4148Ypohx Glucose Monitoring Suppl (D-Care Glucometer) w/Device kit Indications: Gestational diabetes mellitus (GDM), antepartum, gestational diabetes method of control unspecified ([facility]) , Elevated glucose tolerance test 1 kit Daily Use four times daily to check FSBS. In the morning prior to breakfast & 1 hour after each meal for a total of 4times daily. 1 kit 08/25/2024 11/09/2024 DiscontinuedStart: 08-25-2024 End: 96-20-6246Fhrkt Glucose Monitoring Suppl (D-Care Glucometer) w/Device kit Indications: Gestational diabetes mellitus (GDM), antepartum, gestational diabetes method of control unspecified ([facility]) , Elevated glucose tolerance test 1 kit Daily Use four times daily to check FSBS. In the morning prior to breakfast & 1 hour after each meal for a total of 4times daily. 1 kit 08/25/2024 08/25/2025 ActiveStart: 08-25-2024 End: 94-77-7512Ohgwy Glucose Monitoring Suppl (D-Care Glucometer) w/Device kit Indications: Gestational diabetes mellitus (GDM), antepartum, gestational diabetes method of control unspecified , Elevated glucose tolerance test 1 kit Daily Use four times daily to check FSBS. In the morning prior to breakfast & 1 hour after each meal for a total of 4times daily. 1 kit 08/25/2024 08/25/2025 Activeblood-glucose sensor (DEXCOM G7 SENSOR) device (15 sources)Start: 95-11-3356gyycx-glucose sensor (DEXCOM G7 SENSOR) device Indications: Gestational diabetes requiring insulin , Elevated blood pressure affecting , antepartum Use to monitor blood glucose. Change every10 days 5 each 09/12/2024 SuspendedStart: 92-74-7861cvrgi-glucose sensor (DEXCOM G7 SENSOR) device Indications: Gestational diabetes requiring insulin , Elevated blood pressure affecting , antepartum Use to monitor blood glucose. Change every10 days 5 each 09/12/2024 Activecholecalciferol 0.05 mg oral capsule (20 sources)Vitamin DStart: 24-62-8598dweo 1 capsule by mouth once daily End: 93-34-2211kims 2 tablets by mouth in the morningcholecalciferol (Vitamin D- 3) 50 MCG (1999 UT) tablet Take 2 tablets by mouth in the morning. 11/09/2024 Discontinueddocusate sodium 100 mg oral capsule (6 sources)Start: 45-80-0441peag 1 capsule by mouth in the morning, then take 1 capsule by mouth at bedtimedocusate sodium (COLACE) 100 mg capsule Take 1 capsule (100 mg total) by mouth in the morning and 1capsule (100 mg total) before bedtime. 60 capsule 11/02/2024 Activeferrous sulfate 325 mg oral tablet (9 sources)take 1 tablet by mouth once daily at breakfastferrous sulfate 325 (65 FE) MG tablet Take 1 tablet (325 mg total) by mouth daily with breakfast. Active ibuprofen 800 mg oral tablet (17 sources)Nonsteroidal Anti-inflammatory DrugStart: 14-70-5207sfry 1 tablet by mouth every eight hoursibuprofen 800 MG tablet Take 800 mg by mouth every 8 (eight) hours 11/02/2024 ActiveStart: 06-25-2019 End: 73-74-3226jzry 1 tablet by mouth three times daily as needed for pain Ibuprofen 800 mg tablet Discontinued 800 MG PO Three times daily as needed for pain June 25, 2019 12:00am October 17, 2024 9:50amisopropyl alcohol 0.7 ml/ml medicated pad (20 sources)Start: 08-25-2024 End: 35-25-7474Hegmrqs Swabs (Alcohol Prep Pad) 70 % pads Indications: Gestational diabetes mellitus (GDM), antepartum, gestational diabetes method of control unspecified ([facility]) , Elevated glucose tolerance testApply 1 Pad topically Daily Use four times daily to check FSBS. 150 each 3 08/25/2024 11/09/2024 Discontinuedammonium lactate 120 mg/ml topical lotion (20 sources)Start: 40-12-8505Qjkgy: 05-23-2024 End: 56-92-3474iigiyoit lactate (Amlactin) 12 % cream Indications: Xerosis cutis , Fissure in skin of both feet Apply topically Daily 140 g 3 05/23/2024 11/09/2024 Discontinuedondansetron 4 mg disintegrating oral tablet (3 sources)Serotonin-3 Receptor AntagonistStart: 11-07-2024 End: 52-04-6028nnqa 1 tablet by mouth every six hours as needed for nausea and vomiting and nausea and nauseaondansetron ODT (Zofran-ODT) 4 MG disintegrating tablet Indications: Nausea Take 1 tablet (4 mg) bymouth every 6 (six) hours if needed for nausea or vomiting 30 tablet 2 11/07/2024 11/09/2024 Discontinued oxyCODONE hydrochloride 5 mg oral tablet (5 sources)Opioid AgonistStart: 11-02-2024 End: 14-18-6589qotq 1 tablet by mouth every six hours as needed for pain oxyCODONE (ROXICODONE) 5 mg immediate release tablet Indications: Acute post- operative pain Take 1 tablet (5 mg total) by mouth every 6 (six) hours as needed for pain for up to 5 days. Max Daily Amount: 20 mg 20 tablet 11/02/2024 11/07/2024 ActivePnv No.95-Ferrous Fumarate-Fa ( Multivitamins) 28 mg iron- 800 mcg tablet (5 sources)Start: 45-99-0406lrxm 1 tablet by mouth once dailyStart: 10-17-2024 take 1 tablet by mouth once dailyPnv No.95-Ferrous Fumarate-Fa ( Multivitamins) 28 mg iron- 800 mcg tablet Active 1 TAB PO Daily October 17, 2024 12:00am Complies with drug therapyPNV no.95/ferrous fum/folic ac ( ORAL) (20 sources)take 1 tablet by mouth once daily before mealtimePNV no.95/ferrous fum/folic ac ( ORAL) Take 1 tablet by mouth once daily. Activetake 1 tablet by mouth once daily before mealtimePNV no.95/ferrous fum/folic ac ( ORAL) Take 1 tablet by mouth once daily. 0 ActiveComment on above:Take 1 tablet by mouth once daily.polysaccharide iron complex 391 mg oral capsule (11 sources)Start: 10-16-2024 End: 61-09-9361ztds 1 capsule by mouth once dailyiron polysaccharides (ProFe) 391.3 (180 Fe) MG capsule Indications: Anemia, unspecified type Take 1capsule (391.3 mg) by mouth Daily 30 capsule 6 10/16/2024 11/09/2024 Discontinued MV-Min-Fe Fum-FA-DHA ( 1 PO) (20 sources) MV-Min-Fe Fum-FA-DHA ( 1 PO) Take by mouth Active zc331-hvcg-ojney acid ( 19) 29 mg iron- 1 mg tablet,chewable (20 sources) nb658-frbr-dgvll acid ( 19) 29 mg iron- 1 mg tablet,chewable Chew 1 tablet and swallow in the morning. Suspendedprenatal nn109-vmgg-zpmbz acid ( 19) 29 mg iron- 1 mg tablet,chewable Chew 1 tablet and swallow in the morning. Active Completed/Discontinued Medications MedicationDrug Class(es)DatesSig (Normalized)Sig (Original)chorionic gonadotropin 49863 unt/ml injectable solution (13 sources)GonadotropinStart: 02-17-2024 End: 85-57-8951vwcqdz 83110 [IU] by subcutaneous injection oncechorionic gonadotropin (PREGNYL) 10,000 unit solr 10,000 Units as directed. Mix vials as directed per nursing in office. Administer subcutaneous. 1 Each 02/17/2024 03/17/2024 Discontinued ()Start: 01-61-8694yxmmzpjbj gonadotropin (Pregnyl) 10,000 unit injection 10,000 Units. 02/17/2024 ActiveStart: 12-13-2023 End: 78-95-1291Lmmciutvirtvlcnaqa Pam,HumRec (OVIDREL) 250 mcg/0.5 mL syrg Indications: Female infertility Wilsex052 mcg subcutaneously one time only for 1 dose. 0.5 mL 1 12/13/2023 12/13/2023 ActiveStart: 11-15-2023 End: 65-13-6116gnkoscaxjrufphnkgw pam (Ovidrel) 250 MCG/0.5ML injection 11/15/2023 03/27/2024 DiscontinuedStart: 10-12-2023 End: 86-76-9517Gagrqovasrafwfstwp Pam,HumRec (OVIDREL) 250 mcg/0.5 mL syrg Inject 250 mcg subcutaneously one timeonly for 1 dose. 0.5 mL 1 10/12/2023 10/12/2023 ActiveDULoxetine 60 mg delayed release oral capsule (6 sources)Serotonin and Norepinephrine Reuptake InhibitorStart: 06-25-2019 End: 53-66-9555irsv 1 capsule by mouth once dailyDuloxetine 60 mg capsule,delayed release(DR/EC) Discontinued 60 MG PO Daily June 25, 2019 12:00am October 17, 2024 9:50amfluticasone propionate 0.05 mg/actuat metered dose nasal spray (14 sources)CorticosteroidStart: 03-08-2024 End: 03-24-5762luqylousvjh (Flonase) 50 MCG/ACT nasal spray 2 sprays in the morning. 03/08/2024 07/17/2024 DiscontinuedStart: 03-08-2024 End: 99-79-9136tjkp 2 spray(s) nasal route once dailyfluticasone (Flonase) 50 mcg/actuation nasal spray Indications: Chronic allergic rhinitis Administer 2 sprays into each nostril once daily. 48 mL 3 03/08/2024 06/06/2024 Active End: 05-17-5438pqds 1 spray(s) nasal route in the morningfluticasone propionate (FLONASE) 50 mcg/actuation nasal spray Administer 1 spray into each nostril in the morning. 09/20/2024 Discontinued (Patient Stopped On Own)3 ml insulin glargine 100 unt/ml pen injector (20 sources)Insulin AnalogStart: 80-54-5926rqbtzor glargine (LANTUS SOLOSTAR U- 100 INSULIN) 100 unit/mL (3 mL) insulin pen Indications: Gestational diabetes requiring insulin Inject 17 units every evening. Prime with 2 units. 15 mL 2 10/23/2024 SuspendedStart: 10-17-2024 End: 43-24-9848Myzsehb Glargine (Lantus Solostar U-100 Insulin) 100 unit/mL (3 mL) insulin pen Discontinued 12 UNIT SUBCUT Every evening October 17, 2024 12:00am November 16, 2024 2:35pmStart: 09-20-2024 End: 16-05-2494glyrwvv glargine (LANTUS SOLOSTAR U-100 INSULIN) 100 unit/mL (3 mL) insulin pen Indications: Gestational diabetes requiring insulin Inject 16 units every evening. Prime with 2 units. 15 mL 2 09/20/2024 10/23/2024 DiscontinuedStart: 09-12-2024 End: 59-10-8314Swwcuy SoloStar 100 UNIT/ML pen Inject 12 units every evening. Prime with 2 units. 09/12/2024 11/09/2024 Discontinuediv contrast (will be provided with radiology test) (1 source)Start: 06-16-2023 End: 23-54-5651seaags 1 dose intravenously once, then inject 1 dose intravenously onceiv contrast (will be provided with radiology test) Inject 1 Each intravenously one time only for [address] Neck W IVCON No IV access, insert saline lock prior to the sedation, infusion, injection for imaging exam. Discontinue saline lock post exam. If Pt. has a central line or IVAD, may access foradministration according to line specific nursing protocol. Once exam is complete flush line and de-access according to line specific nursing protocol in the CT contrast administration guidelines link. 1 Each 0 06/16/2023 06/16/2023 ExpiredComment on above:Inject 1 Each intravenously one time only for [...] and de-access according to line specific nursing protocolin the CT contrast administration guidelines link. letrozole 2.5 mg oral tablet (20 sources)Aromatase InhibitorStart: 02-28-2024 End: 48-04-1118beachquxy (FEMARA) 2.5 mg tablet Take 3 tablets by mouth once daily. Menstrual cycle day 3-7 15 tablet 2 02/28/2024 03/13/2024 Discontinued ()Start: 03-30-2023 End: 58-37-6495siauyhyya (FEMARA) 2.5 mg tablet Take 2 tablets by mouth once daily for 5 days. Menstrual cycle day3-7 10 tablet 2 02/15/2024 02/28/2024 DiscontinuedStart: 01-04-2023 End: 09-11-7082iilanopug (FEMARA) 2.5 mg tablet Take 1 tablet by mouth once daily for 5 days. Menstrual cycle day 3-7 5 tablet 3 01/04/2023 ActiveStart: 01-04-2023 End: 64-76-0368tcvi 1 tablet by mouth every other dayletrozole (Femara) 2.5 MG chemo tablet Take 2.5 mg by mouth every other day. 01/04/2023 03/27/2024 D iscontinuedComment on above:Take 1 tablet by mouth once daily for 5 days. Menstrual cycle day 3-7Take 2 tablets by mouth once daily. Take day 3-7 of her cyclemedroxyPROGESTERone acetate 10 mg oral tablet (20 sources)ProgestinStart: 01-04-2023 End: 60-45-5745lilxweoUUUEPDLTScum (Provera) 10 MG tablet 09/09/2023 03/27/2024 DiscontinuedComment on above:Take 1 tablet by mouth once daily for 10 days.24 hr metFORMIN hydrochloride 500 mg extended release oral tablet (20 sources)BiguanideStart: 09-05-2024 End: 58-60-4918jpuy 1 tablet by mouth every hourmetFORMIN XR (GLUCOPHAGE XR) 500 mg 24 hr tablet Take 1 tablet (500 mg total) by mouth Every 12 (twelve) hours. 09/05/2024 09/06/2024 Discontinued (Patient Never Started This Medication)Start: 03-03-2024 End: 15-25-3097fuiEEMFOE XR (Glucophage-XR) 500 MG 24 hr tablet 03/03/2024 07/17/2024 DiscontinuedStart: 01-04-2023 End: 13-03-6644kciq 3 tablets by mouth once daily at breakfast, then take 1 tablet by mouth once daily, then take 3 tablets by mouth once dailymetFORMIN ER (GLUCOPHAGE XR) 500 mg 24 hr tablet Take 3 tablets by mouth daily with breakfast. Start with 1 tablet daily and slowly increase the dose up to 3 tablets daily. 90 tablet 11 02/17/2024 09/11/2024 Discontinued End: 89-50-5842vtsi 2 tablets by mouth once dailymetFORMIN (Glucophage) 500 MG tablet Take 2 tablets by mouth Daily 03/27/2024 DiscontinuedComment on above: Take 3 tablets by mouth daily with breakfast. Start with 1 tablet daily and slowly increase the dose up to 3 tablets daily.progesterone 200 mg oral capsule (20 sources)ProgesteroneStart: 10-26-2023 End: 40-07-4584xckegwlyyftg micronized (PROMETRIUM) 200 mg capsule Use 1 capsule vaginally two times a day. 180 capsule 10/26/2023 09/11/2024 Discontinued End: 45-44-6445gquj 1 capsule by mouth in the morningprogesterone (PROMETRIUM) 200 mg capsule Take 1 capsule (200 mg total) by mouth in the morning. 09/20/2024 Discontinued (Therapy completed)propranolol hydrochloride 40 mg oral tablet (10 sources)beta-Adrenergic BlockerStart: 10-18-2024 End: 64-51-4170pwwi 1 tablet by mouth twice dailyPropranolol 40 mg tablet Discontinued 40 MG PO Twice daily 60 October 18, 2024 2:50pm November 16, 2024 2:36pmStart: 10-18-2024 End: 48-17-1194Gltxhylzdis 40 mg tablet Discontinued 20 MG PO Twice daily 30 October 18, 2024 12:00am September 2:51pmvalACYclovir 500 mg oral tablet (20 sources)Herpesvirus Nucleoside Analog DNA Polymerase Inhibitor, Herpes Simplex Virus Nucleoside Analog DNA Polymerase Inhibitor, Herpes Zoster Virus Nucleoside Analog DNA Polymerase InhibitorStart: 08-30-2024 End: 15-41-1304vqjo 1 tablet by mouth once dailyValacyclovir (Valtrex) 500 mg tablet Discontinued 500 MG PO Daily October 17, 2024 12:00am October 18, 2024 2:13pm Problems Active Problems Problem ClassificationProblemDateDocumented DateEpisodic/Chronic Administrative/social admission (1 source)Treatment plan given; Translations: [Counseling, unspecified] 52-74-0918FisuzygjGpxghsy disorders (20 sources)Generalized anxiety disorder; Translations: [Generalized anxiety disorder]Onset: 055687-72-0697VpudjbyXdjjgs (1 source)Asthma; Translations: [Unspecified asthma, uncomplicated]Chronic Cardiac dysrhythmias (20 sources)Nonsustained ventricular tachycardia ; Translations: [Nonsustained ventricular tachycardia]Onset: 000851-46-9734PqdplmaPzpstgtu or abnormal glucose tolerance complicating ; childbirth; or the puerperium (20 sources)Gestational diabetes mellitus; Translations: [Gestational diabetes mellitus in , unspecified control]Onset: 786327-13-3379Nmoqbnob Disorders of teeth and jaw (3 sources)Temporomandibular joint disorder; Translations: [Unspecified temporomandibular joint disorder, unspecified side]Onset: EpisodicEssential hypertension (1 source)Hypertensive disorderOnset: 85-96-2484XkqclvtPjujsc infertility (12 sources)Female infertility; Translations: [Female infertility, unspecified] Onset: 653659-63-4610MmtwlksNhdps valve disorders (4 sources)Heart murmur; Translations: [Cardiac murmur, unspecified]07-18-2024 EpisodicHypertension complicating ; childbirth and the puerperium (18 sources)Hypertension complicating ; Translations: [Unspecified maternal hypertension, unspecified trimester]Onset: hronic Hypertension complicating ; childbirth and the puerperium (20 sources)-induced hypertension; Translations: [Gestational [-induced] hypertension withoutsignificant proteinuria, unspecified trimester]Onset: 648508-70-2794VjloikmmMzanzaczwupl diseases of female pelvic organs (1 source)Bacterial vaginosis; Translations: [Acute vaginitis]12-15-7037Azbhpfsp Lymphadenitis (1 source)Localized enlarged lymph nodes; Translations: [Localized enlarged lymph nodes]51-41-3196KuzzlmzxThpxczp and fatigue (20 sources)Chronic fatigue syndrome; Translations: [Chronic fatigue syndrome] Onset: 10-05-2022 Resolved: 883449-00-2887RdytjobIhlejvaxv disorders (20 sources)Menorrhagia; Translations: [Excessive and frequent menstruation with regular cycle]Onset: 419710-59-0057XahyvzfQmudiqv (2 sources)Onychomycosis; Translations: [Tinea unguium]95-79-6517Ejsoiiqy Nonspecific chest pain (1 source)Other chest pain; Translations: [Other chest pain]Onset: 12-14-2024 EpisodicNutritional deficiencies (20 sources)Vitamin D deficiency; Translations: [Vitamin D deficiency, unspecified]Onset: 587263-62-6935EljdeyfHoly wounds of extremities (1 source)Puncture wound without foreign body of unspecified finger without damage to nail, initial encounterEpisodicOther complications of (2 sources)Spotting per vagina in ; Translations: [Spotting complicating , unspecified trimester]93-13-1087ZokhkxhfGoiun ear and sense organ disorders (1 source)Bilateral earache; Translations: [Otalgia, bilateral]03-08-2024 EpisodicOther ear and sense organ disorders (2 sources)Tinnitus, bilateral; Translations: [Tinnitus, bilateral]Onset: 55-83-8098AsykoiniFkbah ear and sense organ disorders (4 sources)Otalgia, bilateral; Translations: [Otalgia, bilateral]Onset: 08-47-2750XmadechzThihx endocrine disorders (20 sources)Polycystic ovary; Translations: [Polycystic ovarian syndrome]Onset: 292632-92-5562EynwkgyPevce endocrine disorders (4 sources)Polycystic ovary syndrome; Translations: [Polycystic ovarian syndrome]93-69-6627ZbabebbTddmh endocrine disorders (1 source)Polycystic ovarian syndrome; Translations: [PCOS (polycystic ovarian syndrome)]Onset: 43-27-2468LjaewryKyjak gastrointestinal disorders (1 source)Finding of abdominopelvic segment of trunk; Translations: [Intra- abdominal and pelvic swelling, mass and lump, unspecified site]06-16-2023 EpisodicOther liver diseases (20 sources)Steatosis of liver; Translations: [Fatty (change of) liver, not elsewhere classified]Onset: 377586-26-0474TgxugmtWfdrw liver diseases (17 sources)Liver enzymes abnormal; Translations: [Abnormal levels of other serum enzymes]Onset: 137235-16-7190NomxcqhoHzcpu liver diseases (1 source)Abnormal levels of other serum enzymes; Translations: [Abnormal levels of other serum enzymes]Onset: 82-31-4728DedmlomhUiavp lower respiratory disease (1 source)Dyspnea, unspecified; Translations: [Dyspnea, unspecified]Onset: 32-07-5871PbtgipcpIytcv nervous system disorders (1 source)Chronic pain; Translations: [Other chronic pain]ChronicOther nervous system disorders (1 source)Other acute postprocedural pain; Translations: [Other acute postprocedural pain]Onset: 90-73-7813FlghgshaQvako nutritional; endocrine; and metabolic disorders (20 sources)Obesity caused by energy imbalance; Translations: [Other obesity due to excess calories]Onset: 650478-31-1463IhadzpbFjbxj nutritional; endocrine; and metabolic disorders (20 sources)Body mass index 40+ - severely obese; Translations: [Morbid (severe) obesity due to excess calories]Onset: 066836-35-3776KjmqpnaZwpqj and delivery including normal (20 sources) test positive; Translations: [Encounter for test, result positive]Onset: [id number] screening for suspected conditions (not mental disorders or infectious disease) (16 sources)Cancer cervix screening status; Translations: [Encounter for screening for malignant neoplasm of cervix]Onset: 994117-05-9262Iwmmyxpx Other skin disorders (2 sources)Dystrophia unguium; Translations: [Nail dystrophy]28-08-8773Nwryvupu Other skin disorders (2 sources)Asteatosis cutis; Translations: [Xerosis cutis]01-83-5745Soqvmvdn Other skin disorders (2 sources)Fissure in skin of bilateral feet; Translations: [Changes in skin texture]48-37-5634EhdprsyoCprsa upper respiratory disease (20 sources)Seasonal allergy; Translations: [Other seasonal allergic rhinitis] Onset: 525633-88-4986WjbuuetMkduu upper respiratory disease (1 source)Allergic rhinitis; Translations: [Allergic rhinitis, unspecified] 60-40-3019DpmlbzoXmxla upper respiratory disease (2 sources)Allergic rhinitis, unspecified; Translations: [Allergic rhinitis, unspecified]Onset: 24-48-8381YiuukspVfylj upper respiratory infections (3 sources)Posterior rhinorrhea; Translations: [Postnasal drip]Onset: 03-08-2024 28-58-0734XhfisvgxQcwidkov codes; unclassified (1 source)Family history of cancer; Translations: [Family history of malignant neoplasm, unspecified]70-63-4123BgyuzgpjRizrvmhi codes; unclassified (1 source)Family history of gene mutation; Translations: [Family history of carrier of genetic disease]27-13-0365WkjpufzoRxrbpsbo codes; unclassified (1 source)Family history of breast cancer; Translations: [Family history of malignant neoplasm of breast]76-99-3605FkcgeupvMtduvbmt codes; unclassified (1 source)Family history of prostate cancer; Translations: [Family history of malignant neoplasm of prostate]58-30-5294AqbmialnAdzmdjbn codes; unclassified (1 source)Gestation period, 9 weeks; Translations: [9 weeks gestation of ]96-81-4567FielfyvyDhbyyqtb codes; unclassified (1 source)Gestation period, 13 weeks; Translations: [13 weeks gestation of ]13-80-5158ZhpssgyhBwhpjapv codes; unclassified (2 sources)Gestation period, 14 weeks; Translations: [14 weeks gestation of ]30-21-1190PtgeoehbOvwjglgo codes; unclassified (2 sources)Gestation period, 22 weeks; Translations: [22 weeks gestation of ]44-89-2076EkrenjxePvcwlyhk codes; unclassified (2 sources)Gestation period, 26 weeks; Translations: [26 weeks gestation of ]39-47-1567DibcobpeBeuankfn codes; unclassified (2 sources)Gestation period, 28 weeks; Translations: [28 weeks gestation of ]37-61-2191AjbnarqzEwrqojzr codes; unclassified (2 sources)Gestation period, 31 weeks; Translations: [31 weeks gestation of ]86-61-2090RymqsnmbNvjwsxeg codes; unclassified (2 sources)Gestation period, 32 weeks; Translations: [32 weeks gestation of ]98-27-3901GzogdlnxNhpornga codes; unclassified (2 sources)Gestation period, 33 weeks; Translations: [33 weeks gestation of ]71-38-4611SarflqerUzuufjuw codes; unclassified (2 sources)Gestation period, 34 weeks; Translations: [34 weeks gestation of ]01-38-5694WepebhgdWtmgyfcb codes; unclassified (2 sources)Gestation period, 35 weeks; Translations: [35 weeks gestation of ]87-49-5617WmhugssnMkhtotzo codes; unclassified (3 sources)Gestation period, 36 weeks; Translations: [36 weeks gestation of ]10-31-4357IyljzrsiGmhzqudh codes; unclassified (1 source)35 weeks gestation of ; Translations: [35 weeks gestation of ]Onset: 67-11-2849CjdlbbzoZzicfalcwrj injury; contusion (6 sources)Contusion of left knee; Translations: [Contusion of left knee, initial encounter]83-75-0945XoubyoouKkekzrdnpiao (20 sources)OB RemindersOnset: 353322-56-3707Ijnihktrkcwr (4 sources)35 weeks gestation with first . Primary concern is keeping baby and mom safe as she moves toward induction which is scheduled for October 30.58-09-8464Qmddsgebxbyx (1 source)Scheduled InductionOnset: 21-48-8881Aosehyhcvhgt (1 source)Elevated Glucose Tolerance TestOnset: 52-43-3016Ebqnlqnzavxy (1 source)Supraventricular tachycardia, unspecified; Translations: [Supraventricular tachycardia, unspecified]Onset: 69-74-4473Mowhrhw tract infections (1 source)Urinary tract infectious disease; Translations: [Urinary tract infection, site not specified]98-17-4938HgvxpjtxKikyi infection (20 sources)Genital herpes simplex; Translations: [Herpesviral infection of urogenital system, unspecified]Onset: 790815-38-1849CosuvucDbhjf infection (6 sources)Herpesviral vesicular dermatitis; Translations: [Other herpesviral infection]84-73-1099Ciagcjun Past or Other Problems Problem ClassificationProblemDateDocumented DateEpisodic/ChronicCardiac dysrhythmias (18 sources)Palpitations; Translations: [Palpitations]Onset: 08-24-2024 54-37-5396EfzjflzlUqntrocnglgym and procreative management (20 sources)Patient encounter status; Translations: [Encounter for fertility testing]Onset: 746762-54-0050DtfrapuhCwdewpxuaa disorders (20 sources)Gastroesophageal reflux disease; Translations: [Gastro-esophageal reflux disease without esophagitis]Onset: 10-05-2022 Resolved: 703488-63-2523PgaygxwNfxav complications of (4 sources)Supervision of with history of infertility, first trimester; Translations: [Supervision of high-risk with history of infertility]Onset: 994161-95-4530XuvqbrndVywpzmzc codes; unclassified (20 sources)Genetic mutation; Translations: [Genetic susceptibility to other disease]Onset: 279044-84-1068DuwaoyynCeymilxl codes; unclassified (1 source)Family history of malignant neoplasm of breast; Translations: [Family history of breast cancer]Onset: 71-87-7358DtmpolkfVialzopp codes; unclassified (1 source)Family history of malignant neoplasm of prostate; Translations: [Family history of prostate cancer]Onset: 91-70-9084PxiostxcLbyjyhub codes; unclassified (1 source)Genetic susceptibility to other disease; 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 [place] [address] Echocardiogram Signed Patient: Lissa Rivas MR#: [id number] : 1995 Acct:[id number] Age/Sex: 29 / F ADM Date: 12/14/24 Loc: Room: Type: [facility] Attending Dr: Angie Ramirez APRN Ordering Provider: Angie Ramirez APRN Date of Service: 12/14/24 ECH/ECH echo transthoracic: R07.89 - Other chest pain Copies to: DEBBIE Dias MD, FACC Weight: 200 lb Performed By: RBOOKE Love BSA: 1.9 m2 BP: 115/74 mmHg HR: 69 Reason For Study: R07.89 - Other chest pain History: 6wks post Interpretation Summary Ejection Fraction = 60-65%. The left ventricular size, thickness and function are normal The left ventricular wall motion is normal. Normal transthoracic echocardiogram. Procedure/Quality: A two-dimensional transthoracic echocardiogram with color flow and Doppler was performed. The study was technically good in quality. Left Ventricle: The left ventricular size, thickness and function are normal. Ejection Fraction = 60-65%. The left ventricular wall motion is normal. Left Atrium: The left atrium appears normal in size. The atrial septum appears normal. Right Atrium: [...] normal in structure and function. There is trace tricuspid regurgitation. Pulmonic Valve: The pulmonic valve is normal in structure and function. Arteries: The aortic root is normal size. Pericardium/Pleura: No pericardial effusion seen. There is no pleural effusion. IVC/Hepatic Veins: The inferior vena cava is normal in size, with a normal collapsibility index. Miscellaneous: No thrombus, vegetation or mass is seen. Measurements with Normals IVSd: 1.4 cm (0.7-1.1 cm)LVIDd: 4.6 cm (3.7-5.4 cm) LVPWd: 1.1 cm (0.7-1.1 cm)LVIDs: 3.2 cm (2.3-3.6 cm) LA dimension: 3.9 cm (2.3-4.0 cm)Ao root diam: 3.2 cm(2.0-3.6 cm) asc Aorta Diam: 3.0 cm(2.1-3.4cm) Doppler with Normals RVSP(TR): 23.9 mmHg (18-35mmHg) LV V1 max: 81.4 cm/sec (0.7-1.7m/s)MV E max bernice: 63.8 cm/sec(0.8-1.3m/s) MV A max bernice: 68.6 cm/sec(0.0-0.0m/s) MV E/A: 0.93 (<1.5) MMode/2D Measurements Calculations RVDd: 4.0 cm FS: 31.4 % Ao root area: LVOT diam: 2.0 cm TAPSE: 2.8 cm EDV(Teich): 8.2 cm2 LVOT area: 3.0 cm2 RV S Bernice: 98.5 ml 10.3 cm/sec ESV(Teich): 40.0 ml EF(Teich): 59.4 % __ LVLd ap4: 8.6 cm SV(MOD-sp4): LAV(MOD-sp4): LA A2 area: 17.8 cm2 EDV(MOD-sp4): 68.2 ml 47.8 ml 120.0 ml LAV(MOD-sp2): LA A4 area: 18.1 cm2 LVLs ap4: 7.2 cm 51.2 ml LA length (vol): ESV(MOD-sp4): 5.6 cm 51.8 ml LA vol: 49.1 ml EF(MOD-sp4): 56.8 % LA vol index: 25.4 ml/m2 Doppler Measurements Calculations MV dec time: MV V2 max: E/E' lat: 4.8 MV dec slope: 0.30 sec 72.0 cm/sec E/E' med: 7.6 MV max P.1 mmHg 210.2 cm/sec2 MV V2 mean: 42.8 cm/sec MV mean P.85 mmHg MV V2 VTI: 24.8 cm MVA(VTI): 2.2 cm2 __ Ao V2 max: LV V1 max PG: TV max PG: TR max bernice: 135.7 cm/sec 2.7 mmHg 19.0 mmHg 217.2 cm/sec Ao max P.4 mmHg LV V1 mean PG: TR max P.9 mmHg Ao mean P.0 mmHg1.4 mmHg RAP systole: 5.0 mmHg Ao V2 mean: LV V1 mean: 109.2 cm/sec 56.9 cm/sec Ao V2 VTI: 30.0 cm LV V1 VTI: 18.3 cm LASHAE(I,D): 1.8 cm2 LASHAE(V,D): 1.8 cm2 Transcribed By: SCV Performed At: 12/14/24 09 Signed By: Ronit Rudolph MD, [facility] 12/14/[address] [place] [address] Physician [facility] WITH AUTO DIFFERENTIALon 91-79-6254CVCJCIWPS ABSOLUTE COUNT (10*3/UL) BY AUTOMATED COUNT0.0 10*3/uLNormal0.0-0.2[facility] CenterComment on above:Performed By: #### CBC #### [facility] ([facility]) [address] [place] [address] VIRBASOPHILS RELATIVE PERCENT BY AUTOMATED COUNT0.2 %Normal [facility] HospitalComment on above:Performed By: #### CBC #### [facility] ([facility]) [address] [place] [address] VIRCELLAVISION DIFFERENTIAL TYPEAUTOMATED DIFFERENTIALNormal [facility] HospitalComment on above:Performed By: #### CBC #### [facility] ([facility]) [address] [place] [address] VIREosinophils (Bld) [#/Vol]0.3 10*3/uLNormal0.0-0.4[facility] HospitalComment on above:Performed By: #### CBC #### [facility] ([facility]) [address] [place] [address] VIREOSINOPHILS RELATIVE PERCENT BY AUTOMATED COUNT3.0 %Normal [facility] HospitalComment on above:Performed By: #### CBC #### [facility] ([facility]) [address] [place] [address] VIRErythrocyte distribution width (RBC) [Ratio]14.2 %Normal 11.5-15[facility] HospitalComment on above:Performed By: #### CBC #### [facility] ([facility]) [address] [place] [address] VIRHematocrit (Bld) [Volume fraction]29.1 %Vdu24-33AxdXyjnwm [facility] HospitalComment on above:Performed By: #### CBC #### [facility] ([facility]) [address] [place] [address] VIRHemoglobin (Bld) [Mass/Vol]9.8 g/dLLow11.7-15.5[facility] HospitalComment on above:Performed By: #### CBC #### [facility] ([facility]) [address] [place] [address] VIRLYMPHOCYTES ABSOLUTE COUNT (10*3/UL) BY AUTOMATED COUNT1.5 10*3/uLNormal1.0-3.5ProMedChildren[facility] HospitalComment on above:Performed By: #### CBC #### [facility] ([facility]) [address] [place] [address] VIRLYMPHOCYTES RELATIVE PERCENT BY AUTOMATED COUNT15.6 %Normal [facility] HospitalComment on above:Performed By: #### CBC #### [facility] ([facility]) [address] [place] [address] VIRMCH (RBC) [Entitic mass]29.8 hzDfhuuc27-56AfzAecqzs [facility] HospitalComment on above:Performed By: #### CBC #### [facility] ([facility]) [address] [place] [address] VIRMCHC (RBC) [Mass/Vol]33.6 g/sXIdbcbp85-19DsiBwoarr [facility] HospitalComment on above:Performed By: #### CBC #### [facility] ([facility]) [address] [place] [address] VIRMCV (RBC) [Entitic vol]89 yOOauwey09-794OetUfoygr [facility] HospitalComment on above:Performed By: #### CBC #### [facility] ([facility]) [address] [place] [address] VIRMONOCYTES ABSOLUTE COUNT (10*3/UL) BY AUTOMATED COUNT0.5 10*3/uLNormal0.0-0.9[facility] HospitalComment on above:Performed By: #### CBC #### [facility] ([facility]) [address] [place] [address] VIRMONOCYTES RELATIVE PERCENT BY AUTOMATED COUNT5.2 %Normal [facility] HospitalComment on above:Performed By: #### CBC #### [facility] ([facility]) [address] [place] [address] VIRNEUTROPHILS ABSOLUTE COUNT BY AUTOMATED COUNT7.5 10*3/uLHigh 1.5-6.6[facility] HospitalComment on above:Performed By: #### CBC #### [facility] ([facility]) [address] [place] [address] VIRNEUTROPHILS RELATIVE PERCENT BY AUTOMATED COUNT76.0 %Normal [facility] HospitalComment on above:Performed By: #### CBC #### [facility] ([facility]) [address] [place] [address] VIRPlatelet mean volume (Bld) [Entitic vol]8.1 fLNormal7-12 ProMFairfield [facility] HospitalComment on above:Performed By: #### CBC #### [facility] ([facility]) [address] [place] [address] VIRPlatelets (Bld) [#/Vol]236 10*3/yOFsiagc931-892IjcUddazz [place] HospitalComment on above:Performed By: #### CBC #### [facility] ([facility]) [address] [place] [address] VIRRBC COUNT3.28 X10E12/LLow3.8-5.2PTriHealth Comment on above:Performed By: #### CBC #### [facility] ([facility]) [address] [place] [address] VIRWBC (Bld) [#/Vol]9.8 10*3/uLNormal4-11[facility] HospitalComment on above:Performed By: #### CBC #### [facility] ([facility]) [address] [place] [address] VIRCOMPREHENSIVE METABOLIC PANELon 07-61-0867Yaksvqk [Mass/Vol] 3.3 g/dLNormal3.2-5.3P[facility] HospitalComment on above:Performed By: #### CBC #### [facility] ([facility]) [address] [place] [address] VIRALP [Catalytic activity/Vol]83 U/GCvmgja72-901GukFdtwqg [place] HospitalComment on above:Performed By: #### CBC #### [facility] ([facility]) [address] [place] [address] VIRALT [Catalytic activity/Vol]36 U/LHigh<=31PTriHealthComment on above:Performed By: #### CBC #### [facility] ([facility]) [address] [place] [address] VIRAnion gap [Moles/Vol]9 mmol/LNormal5-15[facility] HospitalComment on above:Performed By: #### CBC #### [facility] ([facility]) [address] [place] [address] VIRAST [Catalytic activity/Vol]33 U/LNormal<=41[facility] HospitalComment on above:Performed By: #### CBC #### [facility] ([facility]) [address] [place] [address] VIRBilirubin [Mass/Vol]0.3 mg/dLNormal0.3-1.2P[facility] HospitalComment on above:Performed By: #### CBC #### [facility] ([facility]) [address] [place] [address] VIRCalcium [Mass/Vol]8.5 mg/dLNormal8.5-10.5P[facility] HospitalComment on above:Performed By: #### CBC #### [facility] ([facility]) [address] [place] [address] VIRChloride [Moles/Vol]107 mmol/VPrdwje19-170DrnLcduzj [place] HospitalComment on above:Performed By: #### CBC #### [facility] ([facility]) [address] [place] [address] VIRCO2 [Moles/Vol]25 mmol/HXtjuyg81-80XleTagmxg [facility] Comment on above:Performed By: #### CBC #### [facility] ([facility]) [address] [place] [address] VIRCreatinine [Mass/Vol]0.63 mg/dLNormal0.40-1.00[facility] HospitalComment on above:Result Comment: METHOD TRACEABLE TO IDMS STANDARDPerformed By: #### CBC #### [facility] ([facility]) [address] [place] [address] VIREGFR (CKD-EPI) NON-RACE DEPENDENT>^90Normal>=60[facility] HospitalComment on above:Result Comment: Reported eGFR is based on the CKD-EPI 2021 equation that does not use a race coefficient.Performed By: #### CBC #### [facility] ([facility]) [address] [place] [address] VIRGlucose [Mass/Vol]88 mg/rSQvqjao30-10ZnrImccbw [place] HospitalComment on above:Performed By: #### CBC #### [facility] ([facility]) [address] [place] [address] VIRPotassium [Moles/Vol]3.7 mmol/LNormal3.5-5.0[facility] HospitalComment on above:Performed By: #### CBC #### [facility] ([facility]) [address] [place] [address] VIRProtein [Mass/Vol]5.7 g/dLLow6.0-8.0[facility] HospitalComment on above:Performed By: #### CBC #### [facility] ([facility]) [address] [place] [address] VIRSodium [Moles/Vol]141 mmol/YLuoray936-309JeqHmpiqo [facility] HospitalComment on above:Performed By: #### CBC #### [facility] ([facility]) [address] [place] [address] VIRUrea nitrogen [Mass/Vol]10 mg/dLNormal5-23[facility] HospitalComment on above:Performed By: #### CBC #### [facility] ([facility]) [address] [place] [address] VIRLDHon 76-33-7004UMN562 U/ITywxfj776-699OtkTwngmc Hernández HospitalComment on above:Performed By: #### CBC #### [facility] ([facility]) [address] [place] [address] VIRURIC ACIDon 76-47-4451Ukepj [Mass/Vol]4.6 mg/dLNormal2.6-7.2 [facility] HospitalComment on above:Performed By: #### CBC #### [facility] ([facility]) [address] [place] [address] VIRCBC WITH AUTO DIFFERENTIALon 77-86-0690ECDPBFTEC ABSOLUTE COUNT (10*3/UL) BY AUTOMATED COUNT0.0 10*3/uLNormal0.0-0.2[facility] HospitalComment on above:Performed By: #### CBC #### [facility] ([facility]) [address] [place] [address] VIRBASOPHILS RELATIVE PERCENT BY AUTOMATED COUNT0.1 %Normal [facility] HospitalComment on above:Performed By: #### CBC #### [facility] ([facility]) [address] [place] [address] VIRCELLAVISION DIFFERENTIAL TYPEAUTOMATED DIFFERENTIALNormal [facility] HospitalComment on above:Performed By: #### CBC #### [facility] ([facility]) [address] [place] [address] VIREosinophils (Bld) [#/Vol]0.0 10*3/uLNormal0.0-0.4ProAdena Regional Medical Centerca [facility] HospitalComment on above:Performed By: #### CBC #### [facility] ([facility]) [address] [place] [address] VIREOSINOPHILS RELATIVE PERCENT BY AUTOMATED COUNT0.0 %Normal [facility] HospitalComment on above:Performed By: #### CBC #### [facility] ([facility]) [address] [place] [address] VIRErythrocyte distribution width (RBC) [Ratio]14.2 %Normal 11.5-15[facility] HospitalComment on above:Performed By: #### CBC #### [facility] ([facility]) [address] [place] [address] VIRHematocrit (Bld) [Volume fraction]27.3 %Vtk61-51SbaSynnew [facility] HospitalComment on above:Performed By: #### CBC #### [facility] ([facility]) [address] [place] [address] VIRHemoglobin (Bld) [Mass/Vol]9.2 g/dLLow11.7-15.5[facility] HospitalComment on above:Performed By: #### CBC #### [facility] ([facility]) [address] [place] [address] VIRLYMPHOCYTES ABSOLUTE COUNT (10*3/UL) BY AUTOMATED COUNT0.9 10*3/uLLow1.0-3.5[facility] HospitalComment on above:Performed By: #### CBC #### [facility] ([facility]) [address] [place] [address] VIRLYMPHOCYTES RELATIVE PERCENT BY AUTOMATED COUNT6.9 %Normal [facility] HospitalComment on above:Performed By: #### CBC #### [facility] ([facility]) [address] [place] [address] VIRMCH (RBC) [Entitic mass]29.1 agNpcvvm60-16HhbIpnyue [facility] HospitalComment on above:Performed By: #### CBC #### [facility] ([facility]) [address] [place] [address] VIRMCHC (RBC) [Mass/Vol]33.6 g/sRGfyale34-53MuoWcflls [facility] HospitalComment on above:Performed By: #### CBC #### [facility] ([facility]) [address] [place] [address] VIRMCV (RBC) [Entitic vol]87 sVGuwpoq75-489TkeDgvqng [facility] HospitalComment on above:Performed By: #### CBC #### [facility] ([facility]) [address] [place] [address] VIRMONOCYTES ABSOLUTE COUNT (10*3/UL) BY AUTOMATED COUNT0.6 10*3/uLNormal0.0-0.9[facility] HospitalComment on above:Performed By: #### CBC #### [facility] ([facility]) [address] [place] [address] VIRMONOCYTES RELATIVE PERCENT BY AUTOMATED COUNT4.8 %Normal [facility] HospitalComment on above:Performed By: #### CBC #### [facility] ([facility]) [address] [place] [address] VIRNEUTROPHILS ABSOLUTE COUNT BY AUTOMATED COUNT11.6 10*3/uL High1.5-6.6ProAdena Regional Medical Centerca [facility] HospitalComment on above:Performed By: #### CBC #### [facility] ([facility]) [address] [place] [address] VIRNEUTROPHILS RELATIVE PERCENT BY AUTOMATED COUNT88.2 %Normal [facility] HospitalComment on above:Performed By: #### CBC #### [facility] ([facility]) [address] [place] [address] VIRPlatelet mean volume (Bld) [Entitic vol]8.9 fLNormal7-12 [facility] HospitalComment on above:Performed By: #### CBC #### [facility] ([facility]) [address] [place] [address] VIRPlatelets (Bld) [#/Vol]182 10*3/kBIelmmd877-425JeeJkjxxs Dawson HospitalComment on above:Performed By: #### CBC #### [facility] ([facility]) [address] [place] [address] VIRRBC COUNT3.14 X10E12/LLow3.8-5.2PIberia Medical Centerica [facility] Comment on above:Performed By: #### CBC #### [facility] ([facility]) [address] [place] [address] VIRWBC (Bld) [#/Vol]13.1 10*3/uLHigh4-11ProA[facility] Centerca [facility] HospitalComment on above:Performed By: #### CBC #### [facility] ([facility]) [address] [place] [address] VIRFETAL SCREENon [id number] SCREENNegativeNormalProAdena Regional Medical Centerca Dawson HospitalComment on above:Performed By: #### CBC #### [facility] ([facility]) [address] [place] [address] VIRANTIBODY IDon [id number] IDPassive D Antibody, Patient Received RHIGNormalProFlower Hospital HospitalComment on above:Performed By: #### ABID #### [facility] [facility] [address] [place] [address] VIRBEDSIDE GLUCOSEon 87-20-7203Cajpuff [Mass/Vol]106 mg/dLHigh 65-99ProF[facility] Hospital HospitalComment on above:Performed By: #### CBC #### [facility] ([facility]) [address] [place] [address] VIRGlucose [Mass/Vol]109 mg/kKLwzh16-26NfzAcxabz [place] HospitalComment on above:Performed By: #### BEDG #### [facility] ([facility]) [address] [place] [address] VIRBLOOD GAS, ARTERIAL, CORDon 10-30-2024%O2 SATURATION CORD ARTERIAL8.0NormalProRiverside Methodist HospitalComment on above:Performed By: #### CBC #### [facility] ([facility]) [address] [place] [address] VIRBASE,DEFICIT-8.0 mmol/LLow0.0-2.0[facility] Comment on above:Performed By: #### CBC #### [facility] ([facility]) [address] [place] [address] VIRINSP. O2 CONC.21 %NormalProRiverside Methodist HospitalComment on above:Performed By: #### CBC #### [facility] ([facility]) [address] [place] [address] VIRPCO2 CORD DDZAJKCT77.0 mmHGNormalAvita Health System [facility] Comment on above:Performed By: #### CBC #### [facility] ([facility]) [address] [place] [address] VIRPH CORD ARTERIAL7.200NormalProFlower Hospital HospitalComment on above:Performed By: #### CBC #### [facility] ([facility]) [address] [place] [address] VIRPO2 CORD [id number] mmHGNoalAvita Health System Bucyrus Hospital Comment on above:Performed By: #### CBC #### [facility] ([facility]) [address] [place] [address] VIRPOC PIPER'S TESTN/ANormalProMedica Dawson HospitalComment on above:Performed By: #### CBC #### [facility] ([facility]) [address] [place] [address] VIRSAMPLE SITEArt CordNormalProRiverside Methodist HospitalComment on above:Performed By: #### CBC #### [facility] ([facility]) [address] [place] [address] VIRSAMPLE TYPEUMBILICAL CORDNormalProRiverside Methodist Hospital Comment on above:Performed By: #### CBC #### [facility] ([facility]) [address] [place] [address] VIRSOURCE OF OXYGENRoom AirNoalAvita Health System Bucy[facility] Hospital Comment on above:Performed By: #### CBC #### [facility] ([facility]) [address] [place] [address] VIRBLOOD GAS, VENOUS, CORDon 99-91-2362LDRG,DEFICIT-6.0 mmol/L Low0.0-2.0ProRiverside Methodist HospitalComment on above:Performed By: #### CBC #### [facility] ([facility]) [address] [place] [address] VIRHCO3 CORD HKYARF82 mmol/LNormalProRiverside Methodist Hospital Comment on above:Performed By: #### CBC #### [facility] ([facility]) [address] [place] [address] VIRINSP. O2 CONC.21 %NormalProAdena Regional Medical Centerca Dawson HospitalComment on above:Performed By: #### CBC #### [facility] ([facility]) [address] [place] [address] VIROxygen saturation in Blood19.0 %NormalProMedica Dawson HospitalComment on above:Performed By: #### CBC #### [facility] ([facility]) [address] [place] [address] VIRPCO2 CORD UMFGEC34.6NormalProMedica Dawson HospitalComment on above:Performed By: #### CBC #### [facility] ([facility]) [address] [place] [address] VIRPH CORD VENOUS7.269NormalProMedica Dawson HospitalComment on above:Performed By: #### CBC #### [facility] ([facility]) [address] [place] [address] VIRPO2 CORD [id number] Dawson HospitalComment on above:Performed By: #### CBC #### [facility] ([facility]) [address] [place] [address] VIRPOC PIPER'S TESTN/ANormalProMedica Dawson HospitalComment on above:Performed By: #### CBC #### [facility] ([facility]) [address] [place] [address] VIRSAMPLE SITEVen CordNormalProMedica Dawson HospitalComment on above:Performed By: #### CBC #### [facility] ([facility]) [address] [place] [address] VIRSAMPLE TYPEUMBILICAL CORDNormalProMedica Dawson Hospital Comment on above:Performed By: #### CBC #### [facility] ([facility]) [address] [place] [address] VIRSOURCE OF OXYGENRoom AirNormalProMedica [facility] Comment on above:Performed By: #### CBC #### [facility] ([facility]) [address] [place] [address] VIRCBC (NO DIFF)on 52-46-1663Grahfnrlnou distribution width (RBC) [Ratio]13.8 %Bsfqoj96.5-15ProMedica Dawson HospitalComment on above: Performed By: #### CBC #### [facility] ([facility]) [address] [place] [address] VIRHematocrit (Bld) [Volume fraction]29.3 %Mlm60-05YftDsariz Dawson HospitalComment on above:Performed By: #### CBC #### [facility] ([facility]) [address] [place] [address] VIRHemoglobin (Bld) [Mass/Vol]9.9 g/dLLow11.7-15.5ProMedica Dawson HospitalComment on above:Performed By: #### CBC #### [facility] ([facility]) [address] [place] [address] VIRMCH (RBC) [Entitic mass]29.8 aoXtzgst57-70UyvJquvob Dawson HospitalComment on above:Performed By: #### CBC #### [facility] ([facility]) [address] [place] [address] VIRMCHC (RBC) [Mass/Vol]33.9 g/qSNekkbq65-27YzxZkfxar Dawson HospitalComment on above:Performed By: #### CBC #### [facility] ([facility]) [address] [place] [address] VIRMCV (RBC) [Entitic vol]88 mFLizjqv99-582TytQvitqa Dawson HospitalComment on above:Performed By: #### CBC #### [facility] ([facility]) [address] [place] [address] VIRPlatelet mean volume (Bld) [Entitic vol]8.8 fLNormal7-12 ProMedica Dawson HospitalComment on above:Performed By: #### CBC #### [facility] ([facility]) [address] [place] [address] VIRPlatelets (Bld) [#/Vol]187 10*3/tEAagzvr834-815LaqSrmdlm Dawson HospitalComment on above:Performed By: #### CBC #### [facility] ([facility]) [address] [place] [address] VIRRBC COUNT3.33 X10E12/LLow3.8-5.2PTriHealth Comment on above:Performed By: #### CBC #### [facility] ([facility]) [address] [place] [address] VIRWBC (Bld) [#/Vol]8.4 10*3/uLNormal4-11ProF[facility] Hospital HospitalComment on above:Performed By: #### CBC #### [facility] ([facility]) [address] [place] [address] VIRCOMPREHENSIVE METABOLIC PANELon 54-55-2773Yxwzgfp [Mass/Vol] 3.3 g/dLNormal3.2-5.3PTriHealthComment on above:Performed By: #### CMP #### [facility] ([facility]) [address] [place] [address] VIRALP [Catalytic activity/Vol]113 U/WSpdmkq43-624PnhTgmcle [place] HospitalComment on above:Performed By: #### CMP #### [facility] ([facility]) [address] [place] [address] VIRALT [Catalytic activity/Vol]9 U/LNormal<=31PTriHealthComment on above:Performed By: #### CMP #### [facility] ([facility]) [address] [place] [address] VIRAnion gap [Moles/Vol]12 mmol/LNormal5-15Pro[facility] HospitalComment on above:Performed By: #### CMP #### [facility] ([facility]) [address] [place] [address] VIRAST [Catalytic activity/Vol]13 U/LNormal<=41Pro[facility] Hospital HospitalComment on above:Performed By: #### CMP #### [facility] ([facility]) [address] [place] [address] VIRBilirubin [Mass/Vol]0.2 mg/dLLow0.3-1.2PTriHealthComment on above:Performed By: #### CMP #### [facility] ([facility]) [address] [place] [address] VIRCalcium [Mass/Vol]8.7 mg/dLNormal8.5-10.5PWood County Hospital HospitalComment on above:Performed By: #### CMP #### [facility] ([facility]) [address] [place] [address] VIRChloride [Moles/Vol]108 mmol/VRdhoop88-164CdeErknai [place] HospitalComment on above:Performed By: #### CMP #### [facility] ([facility]) [address] [place] [address] VIRCO2 [Moles/Vol]22 mmol/MTxnjmt57-06KbaAwiuzn [facility] Comment on above:Performed By: #### CMP #### [facility] ([facility]) [address] [place] [address] VIRCreatinine [Mass/Vol]0.59 mg/dLNormal0.40-1.00Pro[facility] Hospital HospitalComment on above:Result Comment: METHOD TRACEABLE TO IDMS STANDARDPerformed By: #### CMP #### [facility] ([facility]) [address] [place] [address] VIREGFR (CKD-EPI) NON-RACE DEPENDENT>^90Normal>=60ProFlower Hospital HospitalComment on above:Result Comment: Reported eGFR is based on the CKD-EPI 2020 equation that does not use a race coefficient.Performed By: #### CMP #### [facility] ([facility]) [address] [place] [address] VIRGlucose [Mass/Vol]95 mg/bHUktnrp22-05FnxExhyyt [place]ández HospitalComment on above:Performed By: #### CMP #### [facility] ([facility]) [address] [place] [address] VIRPotassium [Moles/Vol]3.6 mmol/LNormal3.5-5.0Pro[facility]ica [facility]dez HospitalComment on above:Performed By: #### CMP #### [facility] ([facility]) [address] [place] [address] VIRProtein [Mass/Vol]5.6 g/dLLow6.0-8.0ProMedica Dawson HospitalComment on above:Performed By: #### CMP #### [facility] ([facility]) [address] [place] [address] VIRSodium [Moles/Vol]142 mmol/DPvwkfi296-035XgiPhlyrp Dawson HospitalComment on above:Performed By: #### CMP #### [facility] ([facility]) [address] [place] [address] VIRUrea nitrogen [Mass/Vol]7 mg/dLNormal5-23ProMedica Dawson HospitalComment on above:Performed By: #### CMP #### [facility] ([facility]) [address] [place] [address] VIRDRUG SCREEN, URINEon 71-87-0009AEJDIQTFLVH/METHAMPNegative NormalNegativeProMedica Dawson HospitalComment on above:Result Comment: AMPH/METH screening cut off = 1000 ng/mLPerformed By: #### DSU #### [facility] ([facility]) [address] [place] [address] VIRBARBITURATESNegativeNormalNegativeProMedica Dawson Hospital Comment on above:Result Comment: Barbiturates screening cut off value = 200 ng/mLPerformed By: #### DSU #### [facility] ([facility]) [address] [place] [address] VIRBENZODIAZEPINESNegativeNormalNegativeProRiverside Methodist HospitalComment on above:Result Comment: Benzodiazepines screening cut off value = 200 ng/mLPerformed By: #### DSU #### [facility] ([facility]) [address] [place] [address] VIRCANNABINOIDSNegativeNormalNegativeAvita [facility] Comment on above:Result Comment: Cannabinoids/THC screening cut off value = 50 ng/mLPerformed By: #### DSU #### [facility] ([facility]) [address] [place] [address] VIRCOCAINE METABOLITENegativeNormalNegativeAvita Health System Bu[facility]rus HospitalComment on above:Result Comment: Cocaine screening cut off value = 300 ng/mLPerformed By: #### DSU #### [facility] ([facility]) [address] [place] [address] VIRECSTASYNegativeNormalNegativeAvita Health System [facility] Comment on above:Result Comment: Ecstasy screening cut off value = 500 ng/mL Performed By: #### DSU #### [facility] ([facility]) [address] [place] [address] VIRMETHADONENegativeNormalNegativeAvita Health System [facility] Comment on above:Result Comment: Methadone screening cut off value = 300 ng/mL. Performed By: #### DSU #### [facility] ([facility]) [address] [place] [address] VIROPIATESNegativeNormalNegMercy Health [facility] Comment on above:Result Comment: Opiates screening cut off value = 300 ng/mL This test is used for the detection of codeine, hydrocodone (>1000 ng/mL), morphine and hydromorphone (>900 ng/mL) in urine.Performed By: #### DSU #### [facility] ([facility]) [address] [place] [address] VIROXYCODONENegativeNormalNegativeAvita Health System [facility] Comment on above:Result Comment: Oxycodone screening cut off value = 300 ng/mL This test is used for the detection of oxycodone and oxymorphone in urine.Performed By: #### DSU #### [facility] ([facility]) [address] [place] [address] VIRPHENCYCLIDINENegativeNormalNegativeAvita Health System [facility] Comment on above:Result Comment: Phencyclidine screening cut off value = 25 ng/mLPerformed By: #### DSU #### [facility] ([facility]) [address] [place] [address] VIRFENTANYL, URINE QUALITATIVEon 00-00-1714LHJGQYXC, URINE QUAL.NegativeNormalNegativeProFlower Hospital HospitalComment on above:Order Comment: Fentanyl screening cutoff = 5ng/ml This report is intended for use in clinical monitoring or management of patients.Performed By: #### UFEN #### [facility] ([facility]) [address] [place] [address] VIRLDHon 51-33-6024KKQ050 U/ZGuxrue134-423BmcRsqrrl Dawson HospitalComment on above:Performed By: #### LDH #### [facility] ([facility]) [address] [place] [address] VIRREPEATED ABORHon 83-86-8438BKZ_LDKLIEFrpcmoSchBczxfl Dawson HospitalComment on above:Performed By: #### CBC #### [facility] ([facility]) [address] [place] [address] VIRRH_INTEPNegativeNormalProMedica Dawson HospitalComment on above:Performed By: #### CBC #### [facility] ([facility]) [address] [place] [address] VIRSYPHILIS TOTAL(UNKNOWN SYPHILIS STATUS)on 84-09-1018YVULWMBM TOTAL<^0.2Normal<=0.8ProAdena Regional Medical Centerca Dawson HospitalComment on above:Order Comment: NON REACTIVE No serologic evidence of infection to Treponema pallidum. Repeat testing may be considered in patients with suspected acute or primary syphilis in 2 to 4 weeks. Performed By: #### SYPHT #### [facility] ([facility]) [address] [place] [address] VIRTYPE AND SCREENon 08-61-5653CCN_TPJGQVHkavgaEliBesxjf Dawson HospitalComment on above:Performed By: #### TSC #### [facility] ([facility]) [address] [place] [address] VIRRH_INTEPNegativeNormalProAdena Regional Medical Centerca Dawson HospitalComment on above:Performed By: #### TSC #### [facility] ([facility]) [address] [place] [address] VIRURIC ACIDon 15-68-0581Uvaun [Mass/Vol]4.9 mg/dLNormal2.6-7.2 [facility] Dawson HospitalComment on above:Performed By: #### URIC #### [facility] ([facility]) [address] [place] [address] VIRSTREP GP B CULTURE+RFLXon 76-08-7058WMGDW GP B CULTURE+RFLX Strep Gp B Culture+Rflx NOMS HealthcareSTREP GP B CULTURE+RFLXNegativeNOMN HealthcareSTREP GP B CULTURE+RFLXCenters for Disease Control and Prevention (CDC) and[facility] Healthcare STREP GP B CULTURE+RFLXAmerican Congress of Obstetricians and GynecologistsNOMN HealthcareSTREP GP B CULTURE+RFLX(ACOG) guidelines for prevention of group BNOMS HealthcareSTREP GP B CULTURE+RFLXstreptococcal (GBS) disease specify co-collection ofNOMS HealthcareSTREP GP B CULTURE+RFLXa vaginal and rectal swab specimen to maximizeNOMS HealthcareSTREP GP B CULTURE+RFLXsensitivity of GBS detection. Per the CDC and ACOG,NOMS HealthcareSTREP GP B CULTURE+RFLXswabbing both the lower vagina and rectumNOMN HealthcareSTREP GP B CULTURE+RFLX substantially increases the yield of detectionNOMS HealthcareSTREP GP B CULTURE+RFLXcompared with sampling the vagina alone.NOMS HealthcareSTREP GP B CULTURE+RFLXPenicillin G, ampicillin, or cefazolin are indicatedNOMS Healthcare STREP GP B CULTURE+RFLXfor intrapartum prophylaxis of GBSNOMS HealthcareSTREP GP B CULTURE+RFLXcolonization. Reflex susceptibility testing should beNOMS HealthcareSTREP GP B CULTURE+RFLXperformed prior to use of clindamycin only on GBSNOMS HealthcareSTREP GP B CULTURE+RFLXisolates from penicillin-allergic women who areNOMS HealthcareSTREP GP B CULTURE+RFLX considered a high risk for anaphylaxis. Treatment withNOMS HealthcareSTREP GP B CULTURE+RFLXvancomycin without additional testing is warranted ifNOMS Healthcare STREP GP B CULTURE+RFLXresistance to clindamycin is noted.NOMS HealthcareSTREP GP B CULTURE+RFLXPerformed at: CB - [facility] VaughnNOMN HealthcareSTREP GP B CULTURE+[id number] [place], [place] [id number] HealthcareSTREP GP B CULTURE+RFLXLab Director: Grover Mckenna PhD, Phone: [phone] [facility] TOTAL PROTEIN 24 HOUR URINEon 10-26-2024 Interpretation and review of laboratory resultsAbnormalCACHE [facility]LEY [facility] HealthcareProtein (U) [Mass/Vol]14.1 mg/dLHighNINF - 11.9 mg/dLMissouri Southern HealthcareTB TOTAL PROTEIN 24 HOUR ZMGZY266CbpxLSNBJLDD HealthcareTOTAL VOLUME 24 HOUR VJMTZ1375hI/24hrNOMissouri Baptist Medical CenterCLINISYNFormerly [facility] HospitalALL CBC WITH AUTO DIFFon 66-83-9488YHRGCESXB ABSOLUTE ASZT8KVQO HealthcareBasophils/100 WBC (Bld)0.3 %0.2 - 2.0 %NOMS HealthcareEosinophils/100 WBC (Bld)1.2 %0.9 - 7.0 %[facility] HealthcareErythrocyte distribution width (RBC) [Ratio]13 %11.0 - 15.0 %[facility] HealthcareHematocrit (Bld) [Volume fraction]28.9 %Low36.0 - 48.0 %NOMS HealthcareHemoglobin (Bld) [Mass/Vol]9.8 g/dLLow12.0 - 16.0 g/dLNOMissouri Baptist Medical CenterIMMATURE GRANULOCYTES ABS AUTO0.08HighNOMN HealthcareImmature granulocytes/100 WBC (Bld)0.9 %High0.0 - 0.5 %[facility] HealthcareInterpretation and review of laboratory resultsAbnormalNOMN HealthcareLYMPHOCYTES ABSOLUTE AUTO1.7NOMS HealthcareLymphocytes/100 WBC (Bld) 17.6 %Low20.5 - 60.0 %[facility] Medical CenterH (RBC) [Entitic mass]30.2 pg26.7 - 34.0 pgMissouri Southern HealthcareMCHC (RBC) [Mass/Vol]33.9 g/dL29.9 - 35.2 g/dLMissouri Southern Healthcare MCV (RBC) [Entitic vol]89.2 fL81.0 - 99.0 fLMissouri Southern HealthcareMONOCYTES ABSOLUTE AUTO0.8NOMN HealthcareMonocytes/100 WBC (Bld)8 %1.7 - 12.0 %[facility] NEUTROPHILS ABSOLUTE AUTO6.7HighNOMissouri Baptist Medical CenterNeutrophils/100 WBC (Bld)72 %43.0 - 75.0 %[facility] HealthcarePlatelet mean volume (Bld) [Entitic vol]10.6 fL9.5 - 13.5 fLNOMissouri Baptist Medical CenterTBH EO #0.1NOMS HealthcareTBH KUO369JTIP [facility] Medical CenterTB RBC3.[address] John Medical CenterTBH WBC9.4NOMS HealthcareCLINISYNCNOMS HealthcareUS OB BPP W NON-STRESSon 96-97-6043[place]jt[place], [place] [address] Ultrasound Report Signed Patient: LISSA RIVAS MR#: [id number] : 1995 Acct:[id number] Age/Sex: 29 / ADM Date: 10/24/24 Loc: US Attending Dr: Saravanan Ahumada D.O. Ordering Physician: Saravanan Ahumada D.O. Date of Service: 10/24/24 Procedure(s): US OB BPP w non-stress Accession Number(s): [id number] cc: Saravanan Ahumada D.O.; LITO VELAZQUEZ [address] [address] Patient Name: LISSA RIVAS MRN: [facility]:[id number] date: 1995 Sex: F Assigned Patient Location: [facility] Current Patient Location: Accession/Order Number: [id number] Exam Date: 10/24/2024 22:00 Report Date: 10/24/2024 [...] Levine M.D. 10/24/2024 10:02 PM Dictation Location: [place] [address] Electronically authenticated by: [id number] Y Date: 10/24/2024 22:02 Dictated By: Jose Levine M.D. Signed By: 10/24/242204 DD/ 01 TD/TT: Novelty Worker:KARINHRadiology, Radiologist, - 10/24/2024 [place] [address] Ultrasound Report Signed Patient: LISSA RIVAS MR#: [id number] : 1995 Acct:[id number] Age/Sex: 29 / F ADM Date: 10/24/24 Loc: US Attending Dr: Saravanan Ahumada D.O. Ordering Physician: Saravanan Ahumada D.O. Date of Service: 10/24/24 Procedure(s): US OB BPP w non-stress Accession Number(s): [id number] cc: Saravanan Ahumada D.O.; LITO VELAZQUEZ [place] [address] Patient Name: LISSA RIVAS MRN: [id number] date: 1995 Sex: F Assigned Patient Location: [facility] Current Patient Location: Accession/Order Number: [id number] Exam Date: 10/24/2024 22:00 Report Date: 10/24/2024 [...] Levine M.D. 10/24/2024 10:02 PM Dictation Location: [place] [address] Electronically authenticated by: [id number] Y Date: 10/24/2024 22:02 Dictated By: Jose Levine M.D. Signed By: 10/24/242204 DD/ 01 TD/TT: Novelty Worker: HEENA HealthcareRadiology Study observation (narrative)NOMS HealthcareUS OB BPP W NON-STRESSOrdered By: Radiologist Radiology on 65-14-7908RTJQ Healthcare Work Phone: Urinalysis macro (dipstick) panel (U)on 10-23-2024 Bilirubin, UANegativeNegative - 4(70) +++ mg/dLNOMS HealthcareBlood, UANegative Negative - 50 Jorge Luis/mcLNOMS HealthcareClarity, UAClearNOMS HealthcareColor, UA YellowNOMS HealthcareGlucose, UANegativeNegative - 2000(110) ++++ mg/dLNOMS HealthcareInterpretation and review of laboratory resultsNormalNOMS Healthcare Ketones, UANegativeNegative - 160(16) ++++ mg/dLNOMS HealthcareLeukocytes, UA NegativeNegative - 500+++ Flori/mcLNOMS HealthcareNitrite, UANegativeNegative - PositiveNOMS HealthcarepH, UA75 - 9NOMS HealthcareProtein, UANegativeNegative - 1999(20) ++++ mg/dLNOMN HealthcareSpec Grav, UA1.0151 - 1.03NOMN Healthcare Urobilinogen, UA0.20.2 - 12 mg/dLNOMS HealthcareNOMN HealthcareECH echo transthoracicon [id number] echo transthoracicUN[facility] Main [place] [address] [place] [address] Echocardiogram Signed Patient: Lissa Rivas MR#: [id number] : 1995 Acct:[id number] Age/Sex: 29 / F ADM Date: 10/18/24 Loc: Room: Type: [facility] Attending Dr: Kurt Sánchez MD Ordering Provider: Kurt Sánchez MD Date of Service: 10/18/24 [facility] echo transthoracic: I47.10 - Supraventricular tachycardia, unspecified Copies to: MD Kurt Donaldson MD Weight: 227 lb Performed By: Marsha Ventura [facility] BSA: 2.0 m2 Reason For Study: [...] 1520 Signed By: Tacos King MD 10/18/[address] [place] [address] Physician GroupFPG ECG *CARDIOLOGY ONLY*on [id number] ECG *CARDIOLOGY ONLY*[facility] [place] [address] Electrocardiograph Report Signed Patient: Lissa Rivas MR#: [id number] : 1995 Acct:[id number] Age/Sex: 29 / F ADM Date: 10/18/24 Loc: EKGCARDIO Room: Type: [facility] Attending Dr: Kurt Sánchez MD Ordering [...] Otherwise normal ECG Confirmed by Iveth Ding ([id number]) on 10/23/2024 12:58:16 PM Referred By: Electronically Signed By: Iveth Ding Transcribed By: MUS Signed By Iveth Ding MD [address] [place] [address] Physician Group OB BPP W NON-STRESSon [id number], [place] [address] Ultrasound Report Signed Patient: LISSA RIVAS MR#: [id number] : 1995 Acct:[id number] Age/Sex: 29 / F ADM Date: 10/17/24 Loc: [facility] 251-[address]: Saravanan Ahumada D.O. Ordering Physician: Saravanan Ahumada D.O. Date of Service: 10/17/24 Procedure(s): US OB BPP w non-stress Accession Number(s): [id number] cc: Saravanan Ahumada D.O.; LITO VELAZQUEZ [place] [id number] Patient Name: LISSA RIVAS MRN: [id number] date: 1995 Sex: F Assigned Patient Location: [facility] Current Patient Location: [facility] Accession/Order Number: [id number] Exam Date: 10/17/2024 16:58 Report Date: 10/17/2024 [...] 10/17/2024 4:59 PM Dictation Location: [place] [address] Electronically authenticated by: [id number] Y Date: 10/17/2024 16:59 Dictated By: Kevin Barrett D.O. Signed By: 10/17/24 1702 DD/ 1659 TD/TT: Novelty Worker:KARINHRadiology, Radiologist, - 10/17/2024 [place] [address] Ultrasound Report Signed Patient: LISSA RIVAS MR#: [id number] : 1995 Acct:[id number] Age/Sex: 29 / F ADM Date: 10/17/24 Loc: [facility] 251-[address]: Saravanan Ahumada D.O. Ordering Physician: Saravanan Ahumada D.O. Date of Service: 10/17/24 Procedure(s): US OB BPP w non-stress Accession Number(s): [id number] cc: Saravanan Ahumada D.O.; LITO VELAZQUEZ [place] [phone] Patient Name: LISSA RIVAS MRN: [id number] date: 1995 Sex: F Assigned Patient Location: [facility] Current Patient Location: [facility] Accession/Order Number: [id number] Exam Date: 10/17/2024 16:58 Report Date: 10/17/2024 [...] 10/17/2024 4:59 PM Dictation Location: [place] [address] Electronically authenticated by: [id number] Y Date: 10/17/2024 16:59 Dictated By: Kevin Barrett D.O. Signed By: 10/17/241701 DD/ 58 TD/TT: Novelty Worker: [facility] HealthcareRadiology Study observation (narrative)[facility] HealthcareUS OB BPP W NON-STRESSOrdered By: Radiologist Radiology on 59-66-0207YQRRMissouri Southern Healthcare Work Phone: all CBC WITH AUTO DIFFon 51-17-1462DTRFJSRDN ABSOLUTE YWLM0WASB HealthcareBasophils/100 WBC (Bld)0.2 %0.2 - 2.0 %[facility] Eosinophils/100 WBC (Bld)1.4 %0.9 - 7.0 %[facility] HealthcareErythrocyte distribution width (RBC) [Ratio]13.1 %11.0 - 15.0 %[facility] HealthcareHematocrit (Bld) [Volume fraction]30 %Low36.0 - 48.0 %[facility] HealthcareHemoglobin (Bld) [Mass/Vol]10 g/dL Low12.0 - 16.0 g/dLMissouri Southern HealthcareIMMATURE GRANULOCYTES ABS AUTO0.08HighNOMissouri Baptist Medical CenterImmature granulocytes/100 WBC (Bld)0.8 %High0.0 - 0.5 %[facility] Interpretation and review of laboratory resultsAbnormalNOMissouri Baptist Medical Center LYMPHOCYTES ABSOLUTE AUTO1.9NOMissouri Baptist Medical CenterLymphocytes/100 WBC (Bld)20.3 %Low 20.5 - 60.0 %[facility] HealthcareMCH (RBC) [Entitic mass]30.2 pg26.7 - 34.0 pgNOMissouri Baptist Medical CenterMCHC (RBC) [Mass/Vol]33.3 g/dL29.9 - 35.2 g/dLMissouri Southern HealthcareMCV (RBC) [Entitic vol]90.6 fL81.0 - 99.0 fLNOMissouri Baptist Medical CenterMONOCYTES ABSOLUTE AUTO0.8NOMS HealthcareMonocytes/100 WBC (Bld)7.9 %1.7 - 12.0 %[facility]OM[facility] HealthcareNEUTROPHILS ABSOLUTE AUTO6.6HighNOMS HealthcareNeutrophils/100 WBC (Bld)69.4 %43.0 - 75.0 % NOMS HealthcarePlatelet mean volume (Bld) [Entitic vol]10.4 fL9.5 - 13.5 fLNOMS HealthcareTBH EO #0.1NOMS HealthcareTBH ZJI339MGBH HealthcareTBH RBC3.31LowNOMS HealthcareTBH WBC9.6NOMS HealthcareCLINISYNCNOMS HealthcareUrinalysis macro (dipstick) panel (U)on 48-20-7631Dgctbjbvh, UANegativeNegative - 4(70) +++ mg/dL [facility] HealthcareBlood, UANegativeNegative - 50 Jorge Luis/mcLNOMS HealthcareClarity, UA ClearNOMS HealthcareColor, UAYellowNOMS HealthcareGlucose, UANegativeNegative - 2000(110) ++++ mg/dLNOMN HealthcareInterpretation and review of laboratory resultsAbnormalNOMS HealthcareKetones, UANegativeNegative - 160(16) ++++ mg/dL NOMS HealthcareLeukocytes, UANegativeNegative - 500+++ Flori/mcLNOMN Healthcare Nitrite, UANegativeNegative - PositiveNOMS HealthcarepH, UA75 - 9NOMN Healthcare Protein, UATraceNegative - 2000(20) ++++ mg/dLNOMN HealthcareSpec Grav, UA1.0151 - 1.03NOMS HealthcareUrobilinogen, UA1.00.2 - 12 mg/dLNOMS HealthcareNOMS HealthcareUS OB BPP W NON-STRESSon 80-80-0230[place]wb[place], [place] [address] Ultrasound Report Signed Patient: LISSA RIVAS MR#: [id number] : 1995 Acct:[id number] Age/Sex: 29 / F ADM Date: 10/10/24 Loc: US Attending Dr: Saravanan Ahumada D.O. Ordering Physician: Saravanan Ahumada D.O. Date of Service: 10/10/24 Procedure(s): US OB BPP w non-stress Accession Number(s): [id number] cc: Saravanan Ahumada D.O.; LITO VELAZQUEZ [place] [phone] Patient Name: LISSA RIVAS MRN: [id number] date: 1995 Sex: F Assigned Patient Location: US Current Patient Location: Accession/Order Number: [id number] Exam Date: 10/11/2024 08:41 Report Date: 10/11/2024 [...] Gage M.D. 10/11/2024 8:42 AM Dictation Location: [place] [address] Electronically authenticated by: [id number] Y Date: 10/11/2024 08:42 Dictated By: Paula Ggae M.D. Signed By: 10/11/24 0845 DD/ 0842 TD/TT: Novelty Worker:ARELISadiology, Radiologist, - 10/11/2024 [place] [address] Ultrasound Report Signed Patient: LISSA RIVAS MR#: [id number] : 1995 Acct:[id number] Age/Sex: 29 / F ADM Date: 10/10/24 Loc: US Attending Dr: Saravanan Ahumada D.O. Ordering Physician: Saravanan Ahumada D.O. Date of Service: 10/10/24 Procedure(s): US OB BPP w non-stress Accession Number(s): [id number] cc: Saravanan Ahumada D.O.; LITO VELAZQUEZ [place] [address] Patient Name: LISSA RIVAS MRN: [facility]:[id number] date: 1995 Sex: F Assigned Patient Location: US Current Patient Location: Accession/Order Number: [id number] Exam Date: 10/11/2024 08:41 Report Date: 10/11/2024 [...] is in normal range. Total score: 11/03 US/ OB BPP w non-stress IMPRESSION: NORMAL BIOPHYSICAL PROFILE Impression dictated by: Paula Gage M.D. 10/11/2024 8:42 AM Dictation Location: [place] [address] Electronically authenticated by: [id number] Y Date: 10/11/2024 08:42 Dictated By: Paula Gage M.D. Signed By: 10/11/2445 DD/ 1 TD/TT: Novelty Worker: HEENA HealthcareRadiology Study observation (narrative)NOMS HealthcareUS OB BPP W NON-STRESSOrdered By: Radiologist Radiology on 74-01-8415VNMTMissouri Southern Healthcare Work Phone: Urinalysis macro (dipstick) panel (U)on 10-09-2024 Bilirubin, UANegativeNegative - 4(70) +++ mg/dLNOMS HealthcareBlood, UANegative Negative - 50 Jorge Luis/mcLNOMS HealthcareClarity, UAClearNOMS HealthcareColor, UA YellowNOMS HealthcareGlucose, UANegativeNegative - 2000(110) ++++ mg/dLNOMN HealthcareInterpretation and review of laboratory resultsAbnormalNOMN Healthcare Ketones, UANegativeNegative - 160(16) ++++ mg/dLNOMS HealthcareLeukocytes, UA ModerateNegative - 500+++ Flori/mcLNOMS HealthcareNitrite, UANegativeNegative - PositiveNOMS HealthcarepH, UA7.55 - 9NOMS HealthcareProtein, UANegativeNegative - 2000(20) ++++ mg/dLNOMS HealthcareSpec Grav, UA1.011 - 1.03N[facility]S Healthcare Urobilinogen, UA0.20.2 - 12 mg/dLNOMS HealthcareNOMS HealthcareUS OB BPP W NON-STRESSon 56-75-0671Wcz[place], [place] [address] Ultrasound Report Signed Patient: LISSA RIVAS MR#: [id number] : 1995 Acct:[id number] Age/Sex: 29 / F ADM Date: 10/03/24 Loc: US Attending Dr: Saravanan Ahumada D.O. Ordering Physician: Saravanan Ahumada D.O. Date of Service: 10/03/24 Procedure(s): US OB BPP w non-stress Accession Number(s): [id number] cc: Saravanan Ahumada D.O.; LITO VELAZQUEZ [place] [phone] Patient Name: LISSA RIVAS MRN: [facility]:[id number] date: 1995 Sex: F Assigned Patient Location: US Current Patient Location: Accession/Order Number: [id number] Exam Date: 10/04/2024 07:11 Report Date: 10/04/2024 [...] Gage M.D. 10/04/2024 7:13 AM Dictation Location: [place] [address] Electronically authenticated by: [id number] Y Date: 10/04/2024 07:13 Dictated By: Paula Gage M.D. Signed By: 10/04/24 0716 DD/ 2 TD/TT: Novelty Worker:KARINHRadiology, Radiologist, - 10/04/2024 [place] [address] Ultrasound Report Signed Patient: LISSA RIVAS MR#: [id number] : 1995 Acct:[id number] Age/Sex: 29 / F ADM Date: 10/03/24 Loc: US Attending Dr: Saravanan Ahumada D.O. Ordering Physician: Saravanan Ahumada D.O. Date of Service: 10/03/24 Procedure(s): US OB BPP w non-stress Accession Number(s): [id number] cc: Saravanan Ahumada D.O.; LITO VELAZQUEZ [place] [phone] Patient Name: LISSA RIVAS MRN: [id number]:[id number] date: 1995 Sex: F Assigned Patient Location: US Current Patient Location: Accession/Order Number: [id number] Exam Date: 10/04/2024 07:11 Report Date: 10/04/2024 [...] Gage M.D. 10/04/2024 7:13 AM Dictation Location: [place] [address] Electronically authenticated by: [id number] Y Date: 10/04/2024 07:13 Dictated By: Paula Gage M.D. Signed By: 10/04/24 07 DD/ 2 TD/TT: Novelty Worker: HEENA [facility] Medical CenterRadiology Study observation (narrative)[facility] HealthcareUS OB BPP W NON-STRESSOrdered By: Radiologist Radiology on 80-53-0210WHIEMissouri Southern Healthcare Work Phone: US OB FOLLOW UP TRANSABDOMINAL APPROACHon 00-42-9209OT OB FOLLOW UP TRANSABDOMINAL APPROACHFINDINGS: A single, live intrauterine is present with [...] menstrual period. TRANSCRIBED BY: ELECTRONICALLY SIGNED BY: Danielle HollisalNot AvailableComment on above:Order Comment: US OB SCAN FOR GROWTH Estimated Date of Delivery: 11/19/24 Gestational Age as of 09/13/2024: 79s7kEkdxccfgrn macro (dipstick) panel (U)on 52-74-3298Jrwdqoult, UANegativeNegative - 4(70) +++ mg/dLNOMS HealthcareBlood, UANegativeNegative - 50 Jorge Luis/mcLNOMS HealthcareClarity, UAClearNOMS Healthcare Color, UAYellowNOMS HealthcareGlucose, UANegativeNegative - 2000(110) ++++ mg/dL [facility] HealthcareInterpretation and review of laboratory resultsAbnormalNOMS HealthcareKetones, UANegativeNegative - 160(16) ++++ mg/dLNOMS Healthcare Leukocytes, UANegativeNegative - 500+++ Flori/mcLNOMS HealthcareNitrite, UA NegativeNegative - PositiveNOMS HealthcarepH, UA75 - 9NOMS HealthcareProtein, UA TraceNegative - 2000(20) ++++ mg/dLNOMS HealthcareSpec Grav, UA1.011 - 1.03NOMS HealthcareUrobilinogen, UA0.20.2 - 12 mg/dLNOMS HealthcareNOMS HealthcareUS OB BPP W NON-STRESSon 72-07-6813[place]ps[place], [place] [address] Ultrasound Report Signed Patient: LISSA RIVAS MR#: [id number] : 1995 Acct:[id number] Age/Sex: 29 / F ADM Date: 09/27/24 Loc: [facility] 250-[address]: Saravanan Ahumada D.O. Ordering Physician: Saravanan Ahumada D.O. Date of Service: 09/27/24 Procedure(s): US OB BPP w non-stress Accession Number(s): [id number] cc: Saravanan Ahumada D.O.; LITO VELAZQUEZ [place] [address] Patient Name: LISSA RIVAS MRN: [id number]:[id number] date: 1995 Sex: F Assigned Patient Location: [facility] Current Patient Location: [facility] Accession/Order Number: [id number] Exam Date: 09/27/2024 17:07 Report Date: 09/27/2024 17:08 At the request of: SARAVANAN AHUMADA DO Procedure: US OB BPP w non-stress Biophysical profile. Reason for exam: Gestational diabetes. COMPARISON: None. TECHNIQUE: Transabdominal imaging of the gravid uterus was obtained. FINDINGS: The line installer trolley reports the biophysical profile of 8 out of 8. RAKESH is normal at 18.6 cm. heart rate 145 bpm. US/US OB BPP w non-stress IMPRESSION: BPP 8 out of 8. Impression dictated by: Navjot Harmon Jr., D.O. 09/27/2024 5:08 PM Dictation Location: [place] [address] Electronically authenticated by: [id number] Y Date: 09/27/2024 17:08 Dictated By: Navjot Harmon M.D. Signed By: 09/27/24 171 DD/ 07 TD/TT: Novelty Worker:KARINHRadiologmel, Radiologist, - 09/27/2024 [place] [address] Ultrasound Report Signed Patient: LISSA RIVAS MR#: [id number] : 1995 Acct:[id number] Age/Sex: 29 / F ADM Date: 09/27/24 Loc: [facility] 250-[address]: Saravanan Ahumada D.O. Ordering Physician: Saravanan Ahumada D.O. Date of Service: 09/27/24 Procedure(s): US OB BPP w non-stress Accession Number(s): [id number] cc: Saravanan Ahumada D.O.; LITO VELAZQUEZ [place] [address] Patient Name: LISSA RIVAS MRN: [id number] date: 1995 Sex: F Assigned Patient Location: [facility] Current Patient Location: [facility] Accession/Order Number: [id number] Exam Date: 09/27/2024 17:07 Report Date: 09/27/2024 17:08 At the request of: SARAVANAN AHUMADA DO Procedure: US OB BPP w non-stress Biophysical profile. Reason for exam: Gestational diabetes. COMPARISON: None. TECHNIQUE: Transabdominal imaging of the gravid uterus was obtained. FINDINGS: The line installer trolley reports the biophysical profile of 8 out of 8. RAKESH is normal at 18.6 cm. heart rate 145 bpm. US/US OB BPP w non-stress IMPRESSION: BPP 8 out of 8. Impression dictated by: Navjot Harmon Jr., D.O. 09/27/2024 5:08 PM Dictation Location: [place] [address] Electronically authenticated by: [id number] Y Date: 09/27/2024 17:08 Dictated By: Navjot Harmon M.D. Signed By: 09/27/241710 DD/ 07 TD/TT: Novelty Worker: HEENA HealthcareRadiology Study observation (narrative)[facility] HealthcareUS OB BPP W NON-STRESSOrdered By: Radiologist Radiology on 36-34-0921GHKH Healthcare Work Phone: Urinalysis macro (dipstick) panel (U)on 09-25-2024 Bilirubin, UANegativeNegative - 4(70) +++ mg/dLNOMS HealthcareBlood, UANegative Negative - 50 Jorge Luis/mcLNOMS HealthcareClarity, UAClearNOMS HealthcareColor, UA YellowNOMS HealthcareGlucose, UANegativeNegative - 2000(110) ++++ mg/dLNOMS HealthcareInterpretation and review of laboratory resultsAbnormalNOMN Healthcare Ketones, UAPositiveNegative - 160(16) ++++ mg/dLNOMS HealthcareComment on above: 15mg/dLLeukocytes, UANegativeNegative - 500+++ Flori/mcLNOMS HealthcareNitrite, UA NegativeNegative - PositiveNOMS HealthcarepH, UA75 - 9NOMS HealthcareProtein, UA PositiveNegative - 2000(20) ++++ mg/dLNOMS HealthcareComment on above:30mg/dL Spec Grav, UA1.021 - 1.03NOMS HealthcareUrobilinogen, UA0.20.2 - 12 mg/dLNOMS HealthcareNOMS HealthcareTBH TOTAL PROTEIN 24 HOUR URINEon 09-14-2024 Interpretation and review of laboratory resultsAbnormalNOMS HealthcareProtein (U) [Mass/Vol]16.8 mg/dLHighNINF - 11.9 mg/dLNOMN HealthcareTBH TOTAL PROTEIN 24 HOUR CETZV479LaxaJJRNOXMM HealthcareTOTAL VOLUME 24 HOUR GBGAQ6225vJ/24hrNOMS HealthcareCLINISYNCNOMS HealthcareUrinalysis macro (dipstick) panel (U)on 93-44-2054Aosxmcipe, UANegativeNegative - 4(70) +++ mg/dLNOMS HealthcareBlood, UANegativeNegative - 50 Jorge Luis/mcLNOMS HealthcareClarity, UAClearNOMS Healthcare Color, UAYellowNOMS HealthcareGlucose, UANegativeNegative - 2000(110) ++++ mg/dL N[facility]S HealthcareInterpretation and review of laboratory resultsNormalNOMS HealthcareKetones, UANegativeNegative - 160(16) ++++ mg/dLNOMN Healthcare Leukocytes, UANegativeNegative - 500+++ Flori/mcLNOMS HealthcareNitrite, UA NegativeNegative - PositiveNOMS HealthcarepH, UA75 - 9NOMN HealthcareProtein, UA NegativeNegative - 2000(20) ++++ mg/dLNOMN HealthcareSpec Grav, UA1.021 - 1.03 NOMS HealthcareUrobilinogen, UA0.20.2 - 12 mg/dLNOMN HealthcareNOMN Healthcare CBC without diffon 68-55-7569WMR, Platelet Ct, and Diffsee scanned report [facility] SystemNo Panel Informationon 22-53-0671XSFB HealthcareTBH UA (CLEAN/CATCH) PRINTED CIRCUIT BOARDS PLASMA ETCHER/MICRO IF IND.on 68-58-9595RAUQAUBGU URINENegativeNEGATIVENOMS HealthcareBLOOD URINENegativeNEGATIVENOMS HealthcareClarity (U)CLEARCLEARNOMS HealthcareColor (U)LT. YELLOWYELLOWNOMS HealthcareGLUCOSE URINE UANegative NEGATIVE mg/dLNOMN HealthcareInterpretation and review of laboratory results AbnormalNOMN HealthcareKetones Ql (U)TRACEAbnormalNEGATIVE mg/dLNOMN Healthcare Leukocyte esterase Test strip Ql (U)NegativeNEGATIVENOMS HealthcareNITRITE URINE NegativeNEGATIVENOMS HealthcarepH (U)6.5 [pH]5.0 - 9.0NOMN HealthcarePROTEIN URINENegativeNEG/TRACE mg/dLNOMN HealthcareSPECIFIC GRAVITY URINE<=1.005Abnormal 1.005 - 1.025NOMN HealthcareURINE MICROSCOPIC INDICATEDNONOMS Healthcare UROBILINOGEN URINE0.2 EU/dL0.2 - 1.0 EU/dLNOMN HealthcareCLINISYNCUrine protein creatinine ratioon 12-12-9203Sbunjnu/Creatinine (U) [Mass ratio]see scanned reportProAdena Regional Medical Centerca Health SystemUS OB FOLLOW UP TRANSABDOMINAL APPROACHon 11-10-6710DL OB FOLLOW UP TRANSABDOMINAL APPROACHEXAM: US OB FOLLOW UP TRANSABDOMINAL APPROACH HISTORY: [...] II, MD, PHD at 08-Sep-2024 10:22:30 AM [facility] TeleradiologyNormalNot AvailableComment on above:Order Comment: US OB SCAN FOR GROWTH Estimated Date of Delivery: 11/19/24 Gestational Age as of 08/30/2024: 83y2jZKLDzh 12-78-5071MMWQJfuiun Visit (OTMNCA) LISSA RIVAS ([id number]) 1995 F Date Time Provider Department 09/05/24 1:45 PM FRANKLIN LABOY During your visit today, we recorded the following information about you: Franklin Laboy MD 09/19/2024 3:43 PM Signed History [...] are any new developments. Imaging: No SIGNATURE: Franklin Laboy MD PATIENT NAME: Lissa Rivas DATE: [...] 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] 08/17/2023 Encounter Status:Closed by FRANKLIN LABOY on 09/19/24NormalCLakeHealth Beachwood Medical CenterMETANEPHRINES, FREE PLASMAon 73-31-5348MQESUGDFZZWW, PPHXTO17 pg/mL Xsnksg59-05TucotcijsSelect Medical Specialty Hospital - [facility] on above:Order Comment: Specimen Type: BLOOD SPECIMENOrdering Facility: [facility] Address:[address] [place], [place] [address]Result Comment: Reference Ranges: Hypertensive adult > or = 18 yrs old: 12-72 pg/mL Normotensive adult > or = 18 yrs old: 12-67 pg/mL Normotensive children < 18 yrs old: 10-95 pg/mLPerformed By: #### PMETAN ####[facility] LABCL[facility] [id number] [place] [address] [place] [facility] OT[facility] HOSPITALORMETANEPHRINE, IPOOSC65 pg/mL Xsmqxo65-724LpmkgzukmSelect Medical Specialty Hospital - [place] on above:Order Comment: Specimen Type: BLOOD SPECIMENOrdering Facility: [facility] Address:[address] [place], [place] [address]Result Comment: Reference Ranges: Hypertensive adult > or = 18 yrs old: 24-145 pg/mL Normotensive adult > or = 18 yrs old: 18-101 pg/mL Normotensive children < 18 yrs old: 22-83 pg/mL Methyldopa may cause false elevation of normetanephrine levels in this assay. If patient is on methyldopa, interpret results with caution.Performed By: #### PMETAN ####[facility] LABCL[facility] [id number] [place] [address] [place] AMERICAGlucose random or fasting- POCTon 55-68-5334Pixmfhpp Glucose Fasting Or Random (Fbs)[address] [place] [address] GLOBALDRUM SystemUltrasound - Officeon 48-65-0518Gebiaxwlp Study observation (narrative)[facility] HospitalControlScan SystemRadiology Study observation (narrative)[facility] GLOBALDRUM [facility] CenterECH echo transthoracicon 93-70-6953BRI echo transthoracicUNIVERSITY HOSPITALS ST. [facility] [place] [place] [address] Echocardiogram Signed Patient: Lissa Rivas MR#: [id number] : 1995 Acct:[id number] Age/Sex: 29 / F ADM Date: 08/24/24 Loc: Room: Type: [facility] Attending Dr: Jie Davies RN, MSN, ANP-C Ordering Provider: JIE DAVIES RN, MSN Date of Service: 08/24/24/ ECH/ECH echo transthoracic: Palpitations. Murmur. Copies to: MD SAMSON Mckeon MICHELE L RN, MSN Lissa Bowen 12:39 PM Patient Location: : 1995 Gender: Female (MM/DD/YYYY) Age: 29 Years Ordering Physician: Jie Davies Height: 62.99 in Weight: 225.004 lb Performed By: Yady Abbasi RDCS BSA: 2.03 m2 HR: 93 [...] 1239 Signed By: Iveth Ding MD 08/24/24 1835[facility] Physician GroupALL CBC WITH AUTO DIFFon 68-00-2470UHBRBTVMH ABSOLUTE KEYD4LECW Healthcare Basophils/100 WBC (Bld)0.3 %0.2 - 2.0 %NOMS HealthcareEosinophils/100 WBC (Bld) 1.4 %0.9 - 7.0 %NOMS HealthcareErythrocyte distribution width (RBC) [Ratio]13 % 11.0 - 15.0 %NOMS HealthcareHematocrit (Bld) [Volume fraction]32 %Low36.0 - 48.0 %NOMS HealthcareHemoglobin (Bld) [Mass/Vol]10.6 g/dLLow12.0 - 16.0 g/dLNOMN HealthcareIMMATURE GRANULOCYTES ABS AUTO0.06HighNOMS HealthcareImmature granulocytes/100 WBC (Bld)0.7 %High0.0 - 0.5 %N[facility]S HealthcareInterpretation and review of laboratory resultsAbnormalNOMS HealthcareLYMPHOCYTES ABSOLUTE AUTO1.7 NOMS HealthcareLymphocytes/100 WBC (Bld)18.8 %Low20.5 - 60.0 %NOMS HealthcareMCH (RBC) [Entitic mass]31.6 pg26.7 - 34.0 pgNOMS HealthcareMCHC (RBC) [Mass/Vol] 33.1 g/dL29.9 - 35.2 g/dLCapital Region Medical CenterV (RBC) [Entitic vol]95.5 fL81.0 - 99.0 fLMissouri Southern HealthcareMONOCYTES ABSOLUTE AUTO0.5NOMN HealthcareMonocytes/100 WBC (Bld)5.3 %1.7 - 12.0 %[facility] HealthcareNEUTROPHILS ABSOLUTE AUTO6.5[facility] Neutrophils/100 WBC (Bld)73.5 %43.0 - 75.0 %[facility] HealthcarePlatelet mean volume (Bld) [Entitic vol]9.8 fL9.5 - 13.5 fLMissouri Southern HealthcareTBH EO #0.1NOMS Healthcare TBH AJD896DOCPRusk Rehabilitation Center RBC3.35LowNOMissouri Baptist Medical CenterTB WBC8.8NOMN Healthcare CLINISYNCGlucose 1h post 50g loadon 84-37-8078Mmsgxgr, 1 hr PP 50GM fwju067 [facility] SystemNo Panel Informationon 92-57-2443KWJX Healthcare Urinalysis macro (dipstick) panel (U)on 79-29-8400Wmdteswcf, UANegativeNegative - 4(70) +++ mg/dLNOMN HealthcareBlood, UANegativeNegative - 50 Jorge Luis/mcLNOMN HealthcareClarity, UAClearNOMN HealthcareColor, UAYellowNOMN HealthcareGlucose, UAPositiveNegative - 2000(110) ++++ mg/dLNOMN HealthcareComment on above: 100mg/dLInterpretation and review of laboratory resultsAbnormalNOMN Healthcare Ketones, UAPositiveNegative - 160(16) ++++ mg/dLNOMN HealthcareComment on above: 15mg/dLLeukocytes, UANegativeNegative - 500+++ Flori/mcLNOMS HealthcareNitrite, UA NegativeNegative - PositiveNOMS HealthcarepH, UA6.55 - 9NOMS HealthcareProtein, UANegativeNegative - 2000(20) ++++ mg/dLNOMN HealthcareSpec Grav, UA1.021 - 1.03 NOMS HealthcareUrobilinogen, UA0.20.2 - 12 mg/dLNOMissouri Baptist Medical CenterNOMN HealthcareUS OB INCOMPLETE ANATOMYon 91-98-55[address] [address] Ultrasound Report Signed Patient: LISSA RIVAS MR#: [id number] : 1995 Acct:[id number] Age/Sex: 29 / F ADM Date: 08/04/24 Loc: US Attending Dr: Saravanan Ahumada D.O. Ordering Physician: Saravanan Ahumada D.O. Date of Service: 08/04/24 Procedure(s): US OB incomplete anatomy Accession Number(s): [id number] cc: Saravanan Ahumada D.O.; LITO VELAZQUEZ [address] [address] Patient Name: LISSA RIVAS MRN: [id number] date: 1995 Sex: F Assigned Patient Location: US Current Patient Location: Accession/Order Number: [id number] Exam Date: 08/07/2024 09:41 Report Date: 08/07/2024 [...] Gage M.D. 08/07/2024 9:48 AM Dictation Location: [place] [address] Electronically authenticated by: [id number] Y Date: 08/07/2024 09:48 Dictated By: Paula Gage M.D. Signed By: 08/07/2450 DD/ 7 TD/TT: Novelty Worker:TBHRadiology, Radiologist, - 08/07/2024 [facility] [address] [place] [address] Ultrasound Report Signed Patient: LISSA RIVAS MR#: [id number] : 1995 Acct:[id number] Age/Sex: 29 / F ADM Date: 08/04/24 Loc: US Attending Dr: Saravanan Ahumada D.O. Ordering Physician: Saravanan Ahumada D.O. Date of Service: 08/04/24 Procedure(s): US OB incomplete anatomy Accession Number(s): [id number] cc: Saravanan Ahumada D.O.; LITO VELAZQUEZ [address] [address] Patient Name: LISSA RIVAS MRN: [id number] date: 1995 Sex: F Assigned Patient Location: US Current Patient Location: Accession/Order Number: [id number] Exam Date: 08/07/2024 09:41 Report Date: 08/07/2024 [...] Gage M.D. 08/07/2024 9:48 AM Dictation Location: [place] [address] Electronically authenticated by: [id number] Y Date: 08/07/2024 09:48 Dictated By: Paula Gage M.D. Signed By: 08/07/2450 DD/ 7 TD/TT: Novelty Worker: HEENA HealthcareRadiology Study observation (narrative)[facility]OM[facility] HealthcareUS OB INCOMPLETE ANATOMYOrdered By: Radiologist Radiology on [id number] Southern Healthcare Work Phone: Urinalysis macro (dipstick) panel (U)on 07-17-2024 Bilirubin, UANegativeNegative - 4(70) +++ mg/dLNOMS HealthcareBlood, UAPositive Negative - 50 Jorge Luis/mcLNOMS HealthcareComment on above:Trace-lysedClarity, UAClear NOMS HealthcareColor, UAYellowNOMS HealthcareGlucose, UANegativeNegative - 2000(110) ++++ mg/dLNOMS HealthcareInterpretation and review of laboratory resultsAbnormalNOMS HealthcareKetones, UANegativeNegative - 160(16) ++++ mg/dL NOM HealthcareLeukocytes, UANegativeNegative - 500+++ Flori/mcLNOMN Healthcare Nitrite, UANegativeNegative - PositiveNOMS HealthcarepH, UA75 - 9N[facility] Healthcare Protein, UATraceNegative - 2000(20) ++++ mg/dLNOMS HealthcareSpec Grav, UA1.021 - 1.03NOMS HealthcareUrobilinogen, UA0.20.2 - 12 mg/dLNOMS HealthcareNOMS HealthcareUS OB 14+ WEEKS ANATOMY SCANon 84-71-9406ME OB 14+ WEEKS ANATOMY SCAN EXAM: US [...] II, MD, PHD at 07-Jul-2024 06:23:52 AM [facility] TeleradiologyNormalNot AvailableComment on above:Order Comment: US OB ANATOMY SINGLE W US OB CERVICAL LENGTH Estimated Date of Delivery: 11/19/24 Gestational Age as of 06/19/2024: 18w1dC. trachomatis DNA JANESSA+probe Ql (Unsp spec)on 61-99-6757Eojxqkmtw Dna(Pcr)NegativeSCCI Hospital LimaGonorrhoeae Dna(Pcr)NegativeProParkview Health Bryan HospitalProParkview Health Bryan HospitalUS OB LIMITED 1+ FETUSESon 21-94-8312SM OB LIMITED 1+ FETUSESEXAM: US OB LIMITED 1+ FETUSES HISTORY: Complete [...] II, MD, PHD at 20-Jun-2024 09:56:32 AM [facility] TeleradiologyNormalNot AvailableComment on above:Order Comment: US OB PLACENTA W US OB TRANSVAGINAL Estimated Date of Delivery: 11/19/24 Gestational Age as of 06/19/2024: 25l5tCsdhytroja - Officeon 55-71-4136QacLcbelq Health SystemUS OB CERVICAL LENGTHon 34-88-1539[place], [place] [address] Ultrasound Report Signed Patient: EMILEE RIVAS MR#: [id number] : 1995 Acct:[id number] Age/Sex: 29 / F ADM Date: 05/23/24 Loc: US Attending Dr: Saravanan Ahumada D.O. Ordering Physician: Saravanan Ahumada D.O. Date of Service: 05/23/24 Procedure(s): US OB cervical length Accession Number(s): [id number] cc: Saravanan Ahumada D.O.; LITO VELAZQUEZ [place] [address] Patient Name: EMILEE RIVAS MRN: [facility]:[id number] date: 1995 Sex: F Assigned Patient Location: Current Patient Location: US Accession/Order Number: [id number] Exam Date: 05/23/2024 23:10 Report Date: 05/23/2024 [...] Harmon Jr., D.O.05/23/2024 11:13 PM Dictation Location: [place] [address] Electronically authenticated by: [id number] Y Date: 05/23/2024 23:13 Dictated By: Navjot Harmon M.D. Signed By: 05/23/242314 DD/ 12 TD/TT: Novelty Worker:ARELISadiologmel, Radiologist, - 05/24/2024 [place] [address] Ultrasound Report Signed Patient: EMILEE RIVAS MR#: [id number] : 1995 Acct:[id number] Age/Sex: 29 / F ADM Date: 05/23/24 Loc: US Attending Dr: Saravanan Ahumada D.O. Ordering Physician: Saravanan Ahumada D.O. Date of Service: 05/23/24 Procedure(s): US OB cervical length Accession Number(s): [id number] cc: Saravanan Ahumada D.O.; LITO VELAZQUEZ [place] [address] Patient Name: EMILEE RIVAS MRN: [id number]:[id number] date: 1995 Sex: F Assigned Patient Location: US Current Patient Location: US Accession/Order Number: [id number] Exam Date: 05/23/2024 23:10 Report Date: 05/23/2024 [...] Harmon Jr., D.O.05/23/2024 11:13 PM Dictation Location: [place] [address] Electronically authenticated by: [id number] Y Date: 05/23/2024 23:13 Dictated By: Navjot Harmon M.D. Signed By: 05/23/242314 DD/ 12 TD/TT: Novelty Worker: HEENA HealthcareRadiology Study observation (narrative)HEENA BaconUS OB CERVICAL LENGTHOrdered By: Radiologist Radiology on 16-60-6750CIXU [facility] Work Phone: Unlisted Lab Teston 01-50-2529SniXsfduzSCCI Hospital Lima Urinalysis macro (dipstick) panel (U)on 21-63-6053Lukqvmgss, UANegativeNegative - 4(70) +++ mg/dLNOMS HealthcareBlood, UANegativeNegative - 50 Jorge Luis/mcLNOMS HealthcareClarity, UAClearNOMS HealthcareColor, UAYellowNOMS HealthcareGlucose, UANegativeNegative - 2000(110) ++++ mg/dLNOMS HealthcareInterpretation and review of laboratory resultsNormalNOMS HealthcareKetones, UANegativeNegative - 160(16) ++++ mg/dLNOMS HealthcareLeukocytes, UANegativeNegative - 500+++ Flori/mcL NOMS HealthcareNitrite, UANegativeNegative - PositiveNOMS HealthcarepH, UA75 - 9 NOMS HealthcareProtein, UANegativeNegative - 2000(20) ++++ mg/dLNOMS Healthcare Spec Grav, UA1.0151 - 1.03NOMS HealthcareUrobilinogen, UA0.20.2 - 12 mg/dLNOMS HealthcareNOMS HealthcareUrinalysis macro (dipstick) panel (U)on 05-15-2024 Bilirubin, UANegativeNegative - 4(70) +++ mg/dLNOMS HealthcareBlood, UANegative Negative - 50 Jorge Luis/mcLNOMS HealthcareClarity, UAClearNOMS HealthcareColor, UA YellowNOMS HealthcareGlucose, UANegativeNegative - 2000(110) ++++ mg/dLNOMS HealthcareInterpretation and review of laboratory resultsNormalNOMS Healthcare Ketones, UANegativeNegative - 160(16) ++++ mg/dLNOMS HealthcareLeukocytes, UA NegativeNegative - 500+++ Flori/mcLNOMS HealthcareNitrite, UANegativeNegative - PositiveNOMS HealthcarepH, UA65 - 9NOMS HealthcareProtein, UANegativeNegative - 2000(20) ++++ mg/dLMissouri Southern HealthcareSpec Grav, UA1.011 - 1.03[facility] Urobilinogen, UA0.20.2 - 12 mg/dLAtrium Health LincolnAFP Single Marker Scrn, Maternal, Serumon 81-13-5455YcvXkenxo Health SystemBOX TESTon 04-21-2024 BOX TEST SENT OUT04/21/24NOMN GfdfywodczDBO3KLTBIFUSP LqcgyxzcnhVJV1ZUWMPMAYC HealthcareUNITY BOX CLINISYNCCACHE VALLEY [facility]ITAL HealthcareDrug Screen, Urineon 73-20-5445CngarohjeawfgkqSfestidp SCCI Hospital LimaCocaine MetaboliteNegativeSCCI Hospital LimaOpiates NegativeSCCI Hospital LimaPhencyclidineNegativeSCCI Hospital LimaThc Marijuana, UrineNegativeSCCI Hospital LimaHBV surface Ag IA Qlon 04-21-2024 Hepatitis B Surface AntigenNegativeSCCI Hospital LimaHCG ( test) Ql (U)on 42-01-1801Fhupddprclhyff and review of laboratory resultsAbnormalMissouri Southern HealthcarePreg Test, UrPositiveNegativeAtrium Health LincolnHCV Ab IA Qlon 63-04-8890IZU Ab Ql (S)Non-ReactiveSCCI Hospital LimaHIV 1+2 Ab+HIV1 p24 Ag IA Qlon 73-87-1772TBZ 1&2 AB/AGNon-ReactiveSCCI Hospital Lima Hemoglobin A1con 25-02-9340UuD2t (Bld) [Mass fraction]5.4 %4.0 - 6.0 %SCCI Hospital LimaNo Panel Informationon 22-35-9642TLRVMissouri Southern HealthcareRubella IGG immune statuson 53-71-0453Hcyhfuq immune IgGnon immuneSCCI Hospital LimaT. pallidum IgG+IgM IA Ql (S)on 67-09-7340DjanukpsMzm-ReactiveSCCI Hospital LimaType and screenon 11-95-8975Fzs/Rh(D)NegativeSCCI Hospital LimaUS OB TRANSVAGINALon 77-86-2252EB OB TRANSVAGINALTITLE OF EXAM: OB Ultrasound: REASON FOR EXAM: [...] electronically signed and approved by the interpreting radiologist.NormalNot AvailableComment on above:Order Comment: US OB TRANSVAGINAL Patient's last menstrual period was 02/13/2024 (approximate).Urinalysis macro (dipstick) panel (U)on 69-47-8881Wtuboivbm, UANegativeNegative - 4(70) +++ mg/dL NOMS HealthcareBlood, UANegativeNegative - 50 Jorge Luis/mcLNOMS HealthcareClarity, UA ClearNOMS HealthcareColor, UAYellowNOMS HealthcareGlucose, UANegativeNegative - 2000(110) ++++ mg/dLNOMS HealthcareInterpretation and review of laboratory resultsNormalNOMS HealthcareKetones, UANegativeNegative - 160(16) ++++ mg/dLNOMS HealthcareLeukocytes, UANegativeNegative - 500+++ Flori/mcLNOMS HealthcareNitrite, UANegativeNegative - PositiveNOMS HealthcarepH, UA75 - 9NOMS HealthcareProtein, UANegativeNegative - 2000(20) ++++ mg/dLNOMS HealthcareSpec Grav, UA1.021 - 1.03 NOMS HealthcareUrobilinogen, UA0.20.2 - 12 mg/dLNOMS HealthcareCNNURSEon 62-01-1921VVNSASSIfzwu Visit (REIAV) LISSA RIVAS ([id number]) 1995 F Date Time Provider Department 04/03/24 11:10 AM US TECH 1 [facility] REJ REIAV During your visit today, we recorded the following information about you: Gage Morrissey APRN.CNP 2024 4:38 PM Signed Lissa [...] FHR: 119 Plan Move on to OB Gage Morrissey APRN.CNP 2024 4:34 PM Referring Provider: GAGE MORRISSEY [[id number]] Allergies As of Date: 2024 (No Known Allergies) Date Reviewed: 02/23/2024 Reviewed by: Paula Hester RN - Fully Assessed Visit Diagnosis:Supervision of with history of infertility, first trimester [O09.01] Order(s):OBSTETRIC ULTRASOUND [facility] [[id number]] Order #: [id number]. 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 - An intrauterine gestational sac with a yolk sac and pole is present. - [place] rump length measurement is NOT consistent with [...] by U/S 6 w + 3 d EKRA by U/S: 11/24/2024 Assigned: based on ultrasound [...] Performed By: Paula Peterson RDMS Read By: Yady Howard M.D.MATERNAL MEDICINESelect Medical Specialty Hospital - CantonRadiology Study observation (narrative)[facility] - CantonUltrasound - Officeon 2024 [facility]MedicR[facility] Hospital SystemDrug Screen, Urineon 03-27-2024 Amphetamine/MethamphetamineNegativeProMedica Health SystemBarbituratesNegative ProMedica Health SystemMethadoneNegativeSCCI Hospital LimaOxycodoneNegative [facility] Surgical HospitalCONSULT PRONathann 40-07-4817VDYNFUC PROGHNO ID: [id number] Author: FEDE HAIRSTON MD Service: ? Author [...] Hysteroscopy Laparoscopy OPK (Ovulation Predictor Kit) Ovarian [place] [facility] 10.91 High 01/04/2023 Saline Ultrasound Semen [...] visit. Either the patient or their legal corporate representative has been informed of the risks and benefits of -- and alternatives to -- treatment through a remote evaluation and consents to proceed with the evaluation remotely. I spent a total of 30 minutes on the date of the service which included preparing to see the patient, ydci-dv-aiym patient care, counseling and educating the patient/family/caregiver, ordering medications, tests, or procedures, communicating results to the patient/family/caregiver, and care coordination (not separately reported). MD Kim Branch MDNoMercy Health Springfield Regional Medical CenterB-HCG SerPl-aCncon 57-16-8218RNP.beta subunit Qn190.7 m[IU]/mLHigh<5.0[facility] Comment on above:Order Comment: Specimen Type: BLOOD SPECIMENOrdering Facility: [facility] Address:[address] [id number] Comment: QUANTITATIVE HCG NORMAL RANGES Weeks of Gestation (Weeks Since LMP) 3 Weeks (5.8-71.2 mIU/mL) 4 Weeks (9.5-750 mIU/mL) 5 Weeks (217-7138 mIU/mL) 6 Weeks (158-39998 mIU/mL) 7 Weeks (3697-340082 mIU/mL) 8 Weeks (39087-796899 mIU/mL) 9 Weeks (45726-833287 mIU/mL) 10 Weeks (34620-062357 mIU/mL) 12 Weeks (74212-744938 mIU/mL) Referenced to 4th IS of NIUNIVERSITY OF LOUISVILLE HOSPITALerformed By: #### 55476-9 ####[facility] LABCLIA [id number] [facility] [id number] [place] [address] STATES OF PAUL[facility] COUNTY HOSPITALB-HCG SerPl-aCncon 71-76-0865CNX.beta subunit Qn87.6 m[IU]/mLHigh<5.0[facility] City HospitalComment on above:Order Comment: Specimen Type: BLOOD SPECIMENOrdering Facility: [facility] Address:[address] [place], [place] [address]Afrysr Comment: QUANTITATIVE HCG NORMAL RANGES Weeks of Gestation (Weeks Since LMP) 3 Weeks (5.8-71.2 mIU/mL) 4 Weeks (9.5-750 mIU/mL) 5 Weeks (217-7138 mIU/mL) 6 Weeks (158-86528 mIU/mL) 7 Weeks (3697-841808 mIU/mL) 8 Weeks (96721-936968 mIU/mL) 9 Weeks (26596-632447 mIU/mL) 10 Weeks (87445-250618 mIU/mL) 12 Weeks (18255-819685 mIU/mL) Referenced to 4th IS of NIBSCPerformed By: #### 35993-1 ####[facility] LABCLIA [id number] [place] [address] [place] AMERICAB-HCG SerPl-aCncon 85-52-5091XJW.beta subunit Qn21.9 m[IU]/mLHigh<5.0[facility] City HospitalComment on above:Order Comment: Specimen Type: BLOOD SPECIMENOrdering Facility: [facility] Address:[address] [place], [place] [address]Result Comment: QUANTITATIVE HCG NORMAL RANGES Weeks of Gestation (Weeks Since LMP) 3 Weeks (5.8-71.2 mIU/mL) 4 Weeks (9.5-750 mIU/mL) 5 Weeks (217-7138 mIU/mL) 6 Weeks (158-94320 mIU/mL) 7 Weeks (3697-972041 mIU/mL) 8 Weeks (86274-891519 mIU/mL) 9 Weeks (43587-913836 mIU/mL) 10 Weeks (57573-381008 mIU/mL) 12 Weeks (13963-149727 mIU/mL) Referenced to 4th IS of NIBSCPerformed By: #### 61951-0 ####[facility] LABCLIA [id number] [place] [address] [place] OF AMERICACNPNon 92-46-8782UZCPDlznstgxh (REIBD) LISSA RIVAS ([id number]) 1995 F Date Time Provider Department 03/13/24 FEDE HAIRSTON During your visit today, we recorded the following information about you: Ayanna Wise Zabrina 03/13/2024 11:56 AM Signed Patient states she skipped this month and has +hpt, please follow up with patient. Gage Morrissey APRN.JUKEBOX CHECKER 03/13/2024 1:37 PM Signed Patient calls with [...] ordered: HCG x2 FYI Dr. Bill Morrissey APRN.JUKEBOX CHECKER March 13, 2024 1:37 PM Allergies As of Date: 03/13/2024 (No Known Allergies) Date Reviewed: 02/23/2024 Reviewed by: Paula Hester, ARIC - Fully Assessed Reason for Visit: +hpt today/lmp 02/12 skipped treatment this month [Other] Primary Visit Diagnosis:Supervision of with history of infertility, first trimester [O09.01] Other Visit Diagnosis: examination or test, unconfirmed [Z32.00] Order(s):HCG QUANTITATIVE [SQHCGQT] Order #: [id number] STANDING Prescriptions as of 03/13/2024 - metFORMIN [...] Menstrual cycle day 3-7 Encounter Status:Closed by GAGE MORRISSEY on 03/13/24NoalCLakeHealth Beachwood Medical CenterProgest [facility]-ncon 62-53-2600Nqjzsifbyvzn [Mass/Vol]17.8 ng/mLNormal See commentSelect Medical Specialty Hospital - Cincinnati on above:Order Comment: Specimen Type: BLOOD SPECIMENOrdering Facility: [facility] Address:[address] [place], [place] [address]Result Comment: Menstrual Cycle Progesterone Reference Ranges: Follicular: <1.0 ng/mL Ovulation: <12.1 ng/mL Luteal: 1.8 to 23.9 ng/mL. Progesterone Reference Ranges vary by gestational period: First Trimester: 11.0 to 44.3 ng/mL Second Trimester: 25.4 to 83.3 ng/mL Third Trimester: 58.7 to 214 ng/mL Post menopausal Progesterone: <0.5 ng/mL Reference: 1. Progesterone (Progesterone III) [package insert V 1.0 Filipino]. [facility], [place], [place]. December 2014.Performed By: #### 2839-9 ####[facility] LABCLIA [id number] [facility] [id number] [place] [address] [place] OF AMERICACNPNon 91-03-2051LKVWOoxtpuhhv (REIBD) LISSA RIVAS ([id number]) 1995 F Date Time Provider Department 02/28/24 FEDE HAIRSTON During your visit today, we recorded the following information about you: Joanna Garces 02/28/2024 8:23 AM Signed Pt is not financially clear yet should she still schedule it after she pays Gage Morrissey APRN.JORDAN 02/28/2024 11:54 AM Signed Spoke [...] daily. Menstrual cycle day 3-7 Authorizing Provider: GAGE MORRISSEY APRN.JORDAN February 28, 2024 11:54 AM Allergies As of Date: 02/28/2024 (No Known Allergies) Date Reviewed: 02/23/2024 Reviewed by: Paula Hester RN - Fully Assessed Reason for Visit: gage pt is not cleared for us should she still have it do [Other] Primary Visit Diagnosis:Female infertility [N97.9] Order(s):PROGESTERONE [SQPROG] Order #: [id number] FUTURE letrozole (FEMARA) 2.5 mg tabletTake 3 [...] Menstrual cycle day 3-7 Encounter Status:Closed by GAGE MORRISSEY on 02/28/24NoMercy Health Springfield Regional Medical Center25([place])D3 [facility] 280405-lwbykoaljnnqou D3 [Mass/Vol]49.3 ng/uFEpbbku29.0-80.0Avon HospitalComment on above:Order Comment: Specimen Type: BLOOD SPECIMEN Ordering Facility: [facility] Address: [address] [place] [address]Kuebip Comment: Classification of 25 [place] Vitamin D status: Deficiency/Insufficiency: < or = 30 ng/ml. Sufficiency/Optimal Levels: 31-80 ng/mL Toxicity: > 100 ng/mL. Test performed by chemiluminescent immunoassay.Performed By: #### 1989-3 #### [facility] CLIA [id number] [address] [place] [address] STATES OF SGDCJZH47-duidftpqeykofh D3 [Mass/Vol]on 20-73-7402Duiwilqyekkzao and review of laboratory resultsNormal [facility] Hospital - CantonThe reference range interval was based on an analysis of samples from healthy adults and may not pertain to children from 0-18 years old. [facility] Medical CenterCBC panel Auto (Bld)on 74-01-5212Wgkcjqjzopf distribution width (RBC) [Ratio]12.4 %11.5 - 15.0 %[facility] Specialty Hospital - CantonHematocrit (Bld) [Volume fraction]40.6 %36.0 - 46.0 %[facility] Hospital - CantonHemoglobin (Bld) [Mass/Vol]13.5 g/dL11.5 - 15.5 g/dLSelect Medical Specialty Hospital - CantonInterpretation and review of laboratory resultsNormalCSelect Medical Specialty Hospital - CantonH (RBC) [Entitic mass]31.1 pg26.0 - 34.0 pgClevelMille Lacs Health System Onamia HospitalHC (RBC) [Mass/Vol]33.3 g/dL30.5 - 36.0 g/dLMercy Memorial HospitalV (RBC) [Entitic vol]93.5 fL80.0 - 100.0 fLCleveland ClinicNucleated RBC (Bld) [#/Vol]NINFClevelMercy Health Allen HospitalPlatelet mean volume (Bld) [Entitic vol]10.6 fL 9.0 - 12.7 fLClevelformerly [facility], 1928–1983 ClinicPlatelets (Bld) [#/Vol]261 10*3/uLSelect Medical Specialty Hospital - Canton RBC (Bld) [#/Vol]4.34 10*6/uL3.90 - 5.20 m/[facility] VA Medical CenterWBC (Bld) [#/Vol] 8.81 10*3/uLChillicothe VA Medical CenterErythrocyte distribution width (RBC) [Ratio]12.4 %Edyejt75.5-15.0Avon HospitalComment on above:Order Comment: Specimen Type: BLOOD SPECIMEN Ordering Facility: [facility] Address: [address] [place], [place] [address]Performed By: #### 47263-6 #### [facility] [place] [id number] [address] [place] [address] [facility] MEDICAL CENTERHematocrit (Bld) [Volume fraction]40.6 % Owqvux57.0-46.0Av HospitalComment on above:Order Comment: Specimen Type: BLOOD SPECIMEN Ordering Facility: [facility] Address: [address] [place], [place] [address]Performed By: #### 90205-5 #### [facility] [place] [id number] [address] [place] [address] [facility] MEDICAL CENTERHemoglobin (Bld) [Mass/Vol]13.5 g/dL Gsggwe11.5-15.5Avo HospitalComment on above:Order Comment: Specimen Type: BLOOD SPECIMEN Ordering Facility: [facility] Address: [address] [place], [place] [address]Performed By: #### 24343-8 #### [facility] [place] [id number] [address] [place] [address] [facility] (RBC) [Entitic mass]31.1 pgNormal 26.0-34.0Av HospitalComment on above:Order Comment: Specimen Type: BLOOD SPECIMEN Ordering Facility: [facility] Address: [address] [place], [place] [address]Performed By: #### 08514-7 #### [facility] [place] [id number] [address] [place] [address] [facility] (RBC) [Mass/Vol]33.3 g/dLNormal 30.5-36.0Av HospitalComment on above:Order Comment: Specimen Type: BLOOD SPECIMEN Ordering Facility: [facility] Address: [address] [place], [place] [address]Performed By: #### 50130-1 #### [facility] [place] [id number] [address] [place] [address] [facility] MEDICAL CENTERMCV (RBC) [Entitic vol]93.5 fLNormal 80.0-100.0Avon HospitalComment on above:Order Comment: Specimen Type: BLOOD SPECIMEN Ordering Facility: [facility] Address: [address] [place], [place] [address]Performed By: #### 75722-6 #### [facility] CLIA [id number] [address] [place] [address] [facility] RO[facility] HOSPITALucleated RBC (Bld) [#/Vol]10*3/uLNormal <0.01Avon HospitalComment on above:Order Comment: Specimen Type: BLOOD SPECIMEN Ordering Facility: [facility] Address: [address] [place], [place] [address]Performed By: #### 72727-3 #### [facility] IA [id number] [address] [place] [address] [facility] AMERICAPlatelet mean volume (Bld) [Entitic vol] 10.6 fLNormal9.0-12.7Avon HospitalComment on above:Order Comment: Specimen Type: BLOOD SPECIMEN Ordering Facility: [facility] Address: [address] [place], [place] [address]Performed By: #### 84110-2 #### [facility] IA [id number] [address] [place] [address] [facility] MEDICAL CENTERPlatelets (Bld) [#/Vol]261 10*3/uLNormal 150-400Avon HospitalComment on above:Order Comment: Specimen Type: BLOOD SPECIMEN Ordering Facility: [facility] Address: [address] [place], [place] [address]Performed By: #### 90920-0 #### [facility] IA [id number] [address] [place] [address] [facility] OF AMERICARBC (Bld) [#/Vol]4.34 10*6/uLNormal 3.90-5.20Avon HospitalComment on above:Order Comment: Specimen Type: BLOOD SPECIMEN Ordering Facility: [facility] Address: [address] [place], [place] [address], [place] [address]Mewgqhkta By: #### 55453-1 #### [facility] CLIA [id number] [address] [place] [address] [facility] MEDICAL CENTERWBC (Bld) [#/Vol]8.81 10*3/uLNormal 3.70-11.00Ethel HospitalComment on above:Order Comment: Specimen Type: BLOOD SPECIMEN Ordering Facility: [facility] Address: [address] [place], [place] [address]Mpkxflinz By: #### 30951-0 #### [facility] CLIA [id number] [address] [place] [address] [facility] MEDICAL CENTERCNNURSEon 15-63-3802EENRPWBUtyxi Visit (REIAV) LISSA RIVAS ([id number]) 1995 F Date Time Provider Department 02/23/24 [...] Hester RN February 23, 2024 7:46 AM Gage Morrissey APRN.CNP 02/23/2024 1:56 PM Signed Lissa Rivas is here today for a midcycle scan. Lead follicle: 11 Plan: repeat scan 02/24 Gage Morrissey APRN.CNP February 23, 2024 1:54 PM Please schedule the patient for the following- Location: [facility] Provider: Nurse Visit type: midcycle Reason for visit/appointment notes: midcycle Date: 02/24 Time (requested): 0730 If slot is full, please schedule the closest open slot. Call to patient needed: Gage Martinez APRN.CNP 02/23/2024 4:03 PM Signed Addended by: GAGE MORRISSEY on: 02/23/2024 04:03 PM Modules accepted: Orders Referring Provider: GAGE MORRISSEY [[id number]] Allergies As of Date: 02/23/2024 (No Known Allergies) Date Reviewed: 02/23/2024 Reviewed by: Paula Hester RN - Fully Assessed Reason for Visit: Infertility [285] Visit Diagnosis:Female infertility [N97.9] Order(s):FOLLICULAR [facility] [[id number]] Order #: [id number]. #:[id number]: 1 FOLLICULAR [facility] [[id number]] Order #: [id number]: 1 FUTURE Prescriptions as of 02/23/2024 - [...] 08/17/2023 Encounter Status:Closed by VANESSA VO on 02/23/24NormalCLakeHealth Beachwood Medical CenterCobalamin (Vitamin B12) [Mass/Vol]on 76-52-2051Hleinbbhbkjeml and review of laboratory resultsNormWexner Medical CenterComprehensive metabolic 2000 panelon 63-96-3392Ptugnuy [Mass/Vol]4.5 g/dL3.9 - 4.9 g/dL [facility] HospitalP [Catalytic activity/Vol]65 U/L34 - 123 U/LCleveland [facility] ALT [Catalytic activity/Vol]41 U/LHigh7 - 38 U/LCleveland ClinicAnion gap [Moles/Vol]12 mmol/L8 - 15 mmol/LCleveland ClinicAST [Catalytic activity/Vol]21 U/L13 - 35 U/LCleveland ClinicBilirubin [Mass/Vol]0.2 mg/dL0.2 - 1.3 mg/dL [facility] - CantonCalcium [Mass/Vol]9.3 mg/dL8.5 - 10.2 mg/dLSelect Medical Specialty Hospital - [facility]on Chloride [Moles/Vol]105 mmol/L98 - 107 mmol/LCleveland ClinicCO2 [Moles/Vol]24 mmol/L22 - 30 mmol/LCleveland [facility] CenterCreatinine [Mass/Vol]0.78 mg/dL0.58 - 0.96 mg/dLSelect Medical Specialty Hospital - CantonGFR/1.73 sq M.predicted among non-blacks MDRD (S/P/Bld) [Vol rate/Area]106 mL/min/{1.73_m2}- PINFCuk healthcareand [facility] Faribault Medical CenterComment on above: Estimated Glomerular Filtration Rate (eGFR) is calculated using the 2020 CKD-EPI creatinine equation. This equation utilizes serum creatinine, sex, and age as parameters. The creatinine assay has traceable calibration to isotope dilution- mass spectrometry. Refer to KDIGO guidelines for clinical interpretation. In patients with unstable renal function, e.g. those with acute kidney injury, the eGFRmay not accurately reflect actual GFR.Glucose [Mass/Vol]98 mg/dL74 - 99 mg/dLSelect Medical Specialty Hospital - CantonComment on above:The [place] Diabetes Association (ADA) provides guidance for cutoff values for fasting glucose andrandom glucose. The ADA defines fasting as no caloric intake for at least 8 hours. Fasting plasma gl ucose results between 100 to 125 mg/dL indicate [...] Standards of Medical Care in Diabetes 2016, [place] Diabetes Association. Diabetes Care. 2016.39(Suppl 1). Interpretation and review of laboratory resultsAbnormalCleveland ClinicPotassium [Moles/Vol]4.3 mmol/L3.7 - 5.1 mmol/LCleveland ClinicProtein [Mass/Vol]7.3 g/dL 6.3 - 8.0 g/dLMorrison ClinicSodium [Moles/Vol]141 mmol/L136 - 144 mmol/L Morrison ClinicUrea nitrogen [Mass/Vol]11 mg/dL7 - 21 mg/dLLima City Hospital ClinicAlbumin [Mass/Vol]4.5 g/dLNormal3.9-4.9Avon HospitalComment on above:Order Comment: Specimen Type: BLOOD SPECIMEN Ordering Facility: [facility] Address: [address] [place], [place] [address]Performed By: #### 57780-0 #### [facility] CLIA [id number] [address] [place] [address] [place] AMERICAALP [Catalytic activity/Vol]65 U/LNormal 34-123Avon HospitalComment on above:Order Comment: Specimen Type: BLOOD SPECIMEN Ordering Facility: [facility] Address: [address] [place], [place] [address]Performed By: #### 77386-0 #### [facility] IA [id number] [address] [place] [address] [place] AMERICAALT [Catalytic activity/Vol]41 U/LHigh 7-38Avon HospitalComment on above:Order Comment: Specimen Type: BLOOD SPECIMEN Ordering Facility: [facility] Address: [address] [place], [place] [address]Performed By: #### 67735-3 #### [facility] IA [id number] [address] [place] [address] [place] AMERICAAnion gap [Moles/Vol]12 mmol/LNormal8-15 [facility] HospitalComment on above:Order Comment: Specimen Type: BLOOD SPECIMEN Ordering Facility: [facility] Address: [address] [place], [place] [address]Performed By: #### 24292-1 #### [facility] IA [id number] [address] [place] [address] [place] AMERICAAST [Catalytic activity/Vol]21 U/LNormal 13-35Av HospitalComment on above:Order Comment: Specimen Type: BLOOD SPECIMEN Ordering Facility: [facility] Address: [address] [place], [place] [address]Performed By: #### 56138-3 #### [facility] IA [id number] [address] [place] [address] [place] AMERICABilirubin [Mass/Vol]0.2 mg/dLNormal 0.2-1.3Avon HospitalComment on above:Order Comment: Specimen Type: BLOOD SPECIMEN Ordering Facility: [facility] Address: [address] [place], [place] [address]Performed By: #### 59166-8 #### [facility] CLIA [id number] [address] [place] [address] [place] AMERICACalcium [Mass/Vol]9.3 mg/dLNormal8.5-10.2 Ana HospitalComment on above:Order Comment: Specimen Type: BLOOD SPECIMEN Ordering Facility: [facility] Address: [address] [place], [place] [address]Performed By: #### 41485-7 #### [facility] CLIA [id number] [address] [place] [address] [place] AMERICAChloride [Moles/Vol]105 mmol/LNormal 98-107Av HospitalComment on above:Order Comment: Specimen Type: BLOOD SPECIMEN Ordering Facility: [facility] Address: [address] [place], [place] [address]Performed By: #### 62040-4 #### [facility] IA [id number] [address] [place] [address] [place] AMERICACO2 [Moles/Vol]24 mmol/IMokgid19-32Yqun HospitalComment on above:Order Comment: Specimen Type: BLOOD SPECIMEN Ordering Facility: [facility] Address: [address] [place], [place] [address]Performed By: #### 06600-1 #### [facility] IA [id number] [address] [place] [address] [place] AMERICACreatinine [Mass/Vol]0.78 mg/dLNormal 0.58-0.96Ethel HospitalComment on above:Order Comment: Specimen Type: BLOOD SPECIMEN Ordering Facility: [facility] Address: [address] [place], [place] [address]Performed By: #### 71288-2 #### [facility] IA [id number] [place] [address] [place] AMERICACreatinine and Glomerular filtration rate.predicted panel (S/P/Bld)106 mL/min/1.73m???Normal>=60Av HospitalComment on above:Order Comment: Specimen Type: BLOOD SPECIMEN Ordering Facility: [facility] Address: [address] [place], [place] [address]Jrfdpe Comment: Estimated Glomerular Filtration Rate (eGFR) is calculated using the 2020 CKD-EPI cre atinine equation. This equation utilizes serum creatinine, sex, and age as parameters. The creatinine assay has traceable calibration to isotope dilution- mass spectrometry. Refer to KDIGO guidelines for clinical interpretation. In patients with unstable renal function, e.g. those with acute kidney injury, the eGFR may not accurately reflect actual GFR.Performed By: #### 15919-8 #### [facility] CLIA [id number] [address] [place] [address] [place] AMERICAGlucose [Mass/Vol]98 mg/uTUhxjex17-58Nyps HospitalComment on above:Order Comment: Specimen Type: BLOOD SPECIMEN Ordering Facility: [facility] Address: [address] [place], [place] [address]Cegfux Comment: The [place] Diabetes Association (ADA) provides guidance for cutoff [...] Standards of Medical Care in Diabetes 2016, [place] Diabetes Association. Diabetes Care. 2016.39(Suppl 1).Performed By: #### 52987-1 #### [facility] CLIA [id number] [address] [place] [address] [place] AMERICAPotassium [Moles/Vol]4.3 mmol/LNormal 3.7-5.1Avon HospitalComment on above:Order Comment: Specimen Type: BLOOD SPECIMEN Ordering Facility: [facility] Address: [address] [place], [place] [address]Wzhtekihp By: #### 76847-8 #### [facility] CLIA [id number] [address] [place] [address] [place] AMERICAProtein [Mass/Vol]7.3 g/dLNormal6.3-8.0 [facility] Medical CenterComment on above:Order Comment: Specimen Type: BLOOD SPECIMEN Ordering Facility: [facility] Address: [address] [place], [place] [address]Performed By: #### 71254-2 #### [facility] CLIA [id number] [address] [place] [address] [place] AMERICASodium [Moles/Vol]141 mmol/TBjdiep364-835 [facility] HospitalComment on above:Order Comment: Specimen Type: BLOOD SPECIMEN Ordering Facility: [facility] Address: [address] [place], [place] [address]Performed By: #### 47830-9 #### [facility] CLIA [id number] [place] [address] [place] AMERICAUrea nitrogen [Mass/Vol]11 mg/dLNormal 7-21Ethel HospitalComment on above:Order Comment: Specimen Type: BLOOD SPECIMEN Ordering Facility: [facility] Address: [address] [place], [place] [address]Performed By: #### 21239-6 #### [facility] CLIA [id number] [address] [place] [address] [place] AMERICAFollicle Diameter USon 02-23-2024 Indication Follicle monitoring Impression Right Ovary: Size [...] Cornelia Macario; RDMS Read By: Vanessa Vo M.D.MATERNAL MEDICINESelect Medical Specialty Hospital - CantonRadiology Study observation (narrative)Select Medical Specialty Hospital - CantonHbA1c (Bld)on 30-50-5926Dejadrr glucose Estimated from glycated hemoglobin (Bld) [Mass/Vol]111 mg/dLSelect Medical Specialty Hospital - CantonComment on above:eAG: (Estimated average glucose) is a calculated value from HgbA1c and is corporate representative of the average blood glucose level in the last 2-3 month period.HbA1c (Bld) [Mass fraction]5.5 %4.3 - 5.6 %[facility] Comment on above:[place] Diabetes Association guidelines indicate that patients with HgbA1c in the range 5.7-6.4% are at increased risk for development of diabetes, and intervention by lifestyle modification may be beneficial. HgbA1c greater or equal to 6.5% is considered diagnostic of diabetes.[facility] Average glucose Estimated from glycated hemoglobin (Bld) [Mass/Vol]111 mg/dL [facility] Medical CenterComment on above:Order Comment: Specimen Type: BLOOD SPECIMEN Ordering Facility: [facility] Address: [address] [place], [place] [address]Result Comment: eAG: (Estimated average glucose) is a calculated value from HgbA1c and is corporate representative of the average blood glucose level in the last 2-3 month period.Performed By: #### 32965-5 #### [facility] CLIA [id number] [address] [place] [address] [place] BGKLAOVHlC1c (Bld) [Mass fraction] 5.5 %Normal4.3-5.6Avon HospitalComment on above:Order Comment: Specimen Type: BLOOD SPECIMEN Ordering Facility: [facility] Address: [address] [place], [place] [address]Result Comment: [place] Diabetes Association guidelines indicate that patients with HgbA1c in the range 5.7-6.4% are at increased risk for development of diabetes, and intervention by lifestyle modification may be beneficial. HgbA1c greater or equal to 6.5% is considered diagnostic of diabetes.Performed By: #### 69958-6 #### [facility] CLIA [id number] [address] [place] [address] [place] AMERICAVITAMIN B12on 02-23-2024 Cobalamin (Vitamin B12) [Mass/Vol]567 pg/mL232 - 1245 pg/mLCleveland Clinic VITAMIN D 25 HYDROXYon 60-22-236905570784-xureenegwlvjqf D3 [Mass/Vol]49.3 ng/mL31.0 - 80.0 ng/mLCleveland ClinicComment on above:Classification of 25 [place] Vitamin D status: Deficiency/Insufficiency: < or = 30 ng/ml. Sufficiency/Optimal Levels: 31-80 ng/mL Toxicity: > 100 ng/mL. Test performed by chemiluminescent immunoassay. Vit B12 SerPl-mCncon 42-25-9640Ttthffwia (Vitamin B12) [Mass/Vol]567 pg/mLNormal 232-1245Avon HospitalComment on above:Order Comment: Specimen Type: BLOOD SPECIMEN Ordering Facility: [facility] Address: [address] [place], [place] [address]Performed By: #### 2132-9 #### [facility] CLIA [id number] [address] [place] [address] [place] AMERICACNPNon [id number] (REIBD) LISSA RIVAS ([id number]) 1995 F Date Time Provider Department 02/21/24 FEDE HAIRSTON During your visit today, we recorded the following information about you: Joanna Garces 02/21/2024 10:32 AM Signed [facility]eds hcg [facility] Gage Morrissey APRN.CNP 02/21/2024 10:40 AM Signed Medication send the [facility] specialty on 02/17. 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 Author [...] visit. Either the patient or their legal corporate representative has been informed of the risks and benefits of -- and alternatives to -- treatment through a remote evaluation and consents to proceed with the evaluation remotely. I spent a total of 30 minutes on the date of the service which included preparing to see the patient, ujlk-oy-jwel patient care, counseling and educating the patient/family/caregiver, ordering medications, tests, or procedures, communicating results to the patient/family/caregiver, and care coordination (not separately reported). Kim Khan MDMary Rutan HospitalAPTUNC HEALTH PARDEE MULTITEST VAGINALon 09-95-9173YEFK HealthcareNo Panel Informationon 03-09-8843BOSBUS BACTERIAL VAGINOSISNot detectedNOMS HealthcareAPTIMA SHANTA GLABRATANot detectedNOMS HealthcareAPTIMA CHLAMYDIA CZBNFWXPFAT2buyGTEF HealthcareAPTIMA CHLAMYDIA TRACHOMATISNot detectedppmNOMS HealthcareCNPNon 95-43-3851BCGOPzcjvilrx (REIBD) LISSA RIVAS ([id number]) 1995 F Date Time Provider Department 02/15/24 FEDE HAIRSTON During your visit today, we recorded the following information about you: Ayanna Wise 02/15/2024 11:37 AM Signed Patient states this past month in January she did not ovulate so she did not go through with iui, please follow up with patient. Gage Morrissey APRN.CNP 02/15/2024 2:01 PM Addendum Spoke with Thao, states she was using OPKs last cycle and never got an LH surge. Had two weeks of high fertility but no peak. Cycle was normal length LMP 02/12 Would like to do monitoring/trigger this cycle. Flowsheet/Episode updated. Gage Morrissey APRN.JORDAN February 15, 2024 1:49 PM Please schedule the patient for the following- Location: [facility] Provider: nurse Visit type: midcycle Reason for visit/appointment notes: midcycle Date: 02/22 Time (requested): 0700 If slot is full, please schedule the closest open slot. Call to patient needed: no Allergies As of Date: 02/15/2024 (No Known Allergies) Date Reviewed: 11/22/2023 Reviewed by: Gage Morrissey APRN.CNP - Fully Assessed Reason for Visit: lmp 02/13 for iui - ovulation tracking [Other] Primary Visit Diagnosis:Female infertility [N97.9] Order(s):letrozole (FEMARA) 2.5 mg tabletTake 2 tablets by mouth once daily for 5 days. Menstrual cycle day 3-7Disp: 10 tabletRfl: 2 FOLLICULAR WHI [[id number]] Order #: [id number]: 1 FUTURE Prescriptions as of 02/15/2024 - [...] Menstrual cycle day 3-7 Encounter Status:Closed by GAGE MORRISSEY on 02/15/24[facility] trichomonas manually resultedon 78-11-4185Mzweieemu vaginosis and vaginitis DNA panel Probe+sig amp (Vag fld)NegativeNegEast Tennessee Children[facility], [place] Interpretation and review of laboratory resultsNormEncompass Health Rehabilitation Hospital of MechanicsburgTrichomonas, UANegativeMissouri Southern HealthcareYeastNegativeMissouri Southern HealthcareNOMissouri Baptist Medical CenterMR BRAIN W AND WO CONTRAST (ROUTINE)on 74-93-4308SQ BRAIN W AND WO CONTRAST (ROUTINE)MR - MRI BRAIN W WO INDICATION: Frontal headaches, mirgraines, bilateral ear pain COMPARISON: None. TECHNIQUE: Sagittal T1, axial T2, axial T2* GRE, axial FLAIR, axial DWI sequences of the brain wereacquired. Postcontrast images following 10 mL of Vueway [...] Radiologist. Electronically Signed Nabil Roa D.O. 2024-01-24 15:32:54NormalNot AvailableComment on above:Order Comment: Patient is working with reproductive specialist at [facility] and needs MRI done within thenext 13 days. If [facility] not able to accommodate her, anywhere that is able to schedule within that timeframe would be fine.Alexandra [id number] (REIBD) LISSA RIVAS ([id number]) 1995 F Date Time Provider Department 01/14/24 GAGE MORRISSEY REPEDRO During your visit today, we recorded the following information about you: Keren Carcamo 01/14/2024 9:04 AM Signed Pt started cycle 01/12 and would like to discuss plan for scheduling iui Gage Morrissey APRN.JUKEBOX CHECKER 01/14/2024 4:18 PM Signed Spoke with Lissa, She is planning to use OPK only this cycle. Jeferson call with LH surge. 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 Gage Morrissey APRN.CNP 12/31/2023 10:26 AM Signed WHI GAYATHRI IUI PROCEDURE NOTE Date: 12/31/2023 Primary Proceduralist: Gage Morrissey APRN.CNP Consents and Labels Consent Signed: Informed Consent obtained and on the chart Labels Verified With Patient: Yes Indications: Lissa Rivas, is a 28 year old female here today for intrauterine insemination. IUI # Series 1 Cycle 3. Cycle Day: 20 Last menstrual period: 12/12/2023 Watchung Protocol: UNIVERSAL PROTOCOL / SAFETY CHECKLIST Procedure [...] Plan of Care Visit completed when applicable. Gage Morrissey APRN.CNP IUI IUI Date: 12/31/23 Partner's [...] no menses and call with results. SIGNATURE: Gage Morrissey APRN.CNP PATIENT NAME: Lissa Rivas DATE: December 31, 2023 TIME: 10:25 AM Referring Provider: SELF [[id number]] Allergies As of Date: 12/31/2023 (No Known Allergies) Date Reviewed: 11/22/2023 Reviewed by: Gage Morrissey APRN.CNP - Fully Assessed Reason for [...] WedDec 31, 2023 10:07 AM Status: Signed Lead Dental Assistant offered: Patient declines. Encounter Status:Closed by GAGE MORRISSEY on 12/31/23[facility] 27-80-4025XZPUEEJHjqdl Visit (REIAV) LISSA RIVAS ([id number]) 1995 F Date Time Provider Department 12/21/23 [...] plan provided to patient via a Fertility membership sales advisor. MD Darrell Branch Laura, RN 12/21/2023 2:32 PM Signed pt using LH surge strips and will call to irvin IUI Robin Grewal RN December 21, 2023 2:32 PM Referring Provider: GAGE MORRISSEY [[id number]] Allergies As of Date: 12/21/2023 (No Known Allergies) Date Reviewed: 11/22/2023 Reviewed by: Gage Morrissey APRN.JUKEBOX CHECKER - Fully Assessed Visit Diagnosis:Female infertility [N97.9] Order(s):FOLLICULAR US WHI [[id number]] Order #: [id number]. #:[id number]: 1 Prescriptions as of 12/21/2023 - progesterone [...] 08/17/2023 Encounter Status:Closed by ROBIN GREWAL on 12/21/23NoMercy Health Lorain Hospitalicle Diameter USon 12-21-2023 Indication MIdcycle, Follicle monitoring Impression Right Ovary: [...] Performed By: Cornelia Macario; MS Read By: Fede Hairston M.D.MATERNAL MEDICINESelect Medical Specialty Hospital - [facility]on Radiology Study observation (narrative)[facility] Hospital - CantonCNPNon [id number] Telephone (REIBD) LISSA RIVAS ([id number]) 1995 F Date Time Provider Department 12/13/23 FEDE HAIRSTON During your visit today, we recorded the following information about you: Gage Morrissey APRN.CNP 12/13/2023 4:49 PM Signed LMP 12/11 Plan: Let 5mg, trigger, IUI#2 Flowsheet/episode created Gage Morrissey APRN.CNP December 13, 2023 4:42 PM Please schedule the patient for the following- Location: [facility] Provider: Nurse Visit type: Midcycle Reason for visit/appointment notes: Midcycle Date: 12/20 Time (requested): 730 If slot is full, please schedule the closest open slot. Call to patient needed: no Allergies As of Date: 12/13/2023 (No Known Allergies) Date Reviewed: 11/22/2023 Reviewed by: Gage Morrissey APRN.JUKEBOX CHECKER - Fully Assessed Reason for Visit: LMP 12/12/23/ set up monitored cycle [Other] Patient Update [1234] Primary Visit Diagnosis:Female infertility [N97.9] Order(s):FOLLICULAR US [facility] [[id number]] Order #: [id number]: 1 FUTURE Choriogonadotropin Pam,HumRec (OVIDREL) 250 mcg/0.5 [...] only for 1 dose. Encounter Status:Closed by GAGE MORRISSEY on 12/13/23NoC[facility] 44-13-0824XOWZVtqqyp Visit (REIBD) LISSA RIVAS ([id number]) 1995 F Date Time Provider Department 11/28/23 [...] Cycle Day: 13 Last menstrual period: 11/12/2023 Watchung Protocol: UNIVERSAL PROTOCOL / SAFETY CHECKLIST Procedure [...] # 44.8 million Referring Provider: DESHAWN RIOJAS [[id number]] Allergies As of Date: 11/28/2023 (No Known Allergies) Date Reviewed: 11/22/2023 Reviewed by: Gage Morrissey APRN.JUKEBOX CHECKER - Fully Assessed Primary Visit Diagnosis:Female infertility [...] 08/17/2023 Encounter Status:Closed by DESHAWN RIOJAS on 11/28/23[facility] 40-05-2550JFDCABZTlgum Visit (REIAV) LISSA RIVAS ([id number]) 1995 F Date Time Provider Department 11/22/23 7:15 AM NURSE GAYATHRI [facility] GRETA TOMLINSON During your visit today, [...] called patient. She will drive back to [place] now to get done. Erma Donis RN November 22, 2023 8:45 AM 11/22/2023 11 trigger 25+<10mm 21.2, 25+<10mm 5.6mm tri p4=0.3 lh=5.1 JR 11/23/2023 12 11/24/2023 13 IUI RN called patient, name and verified. Plan given for midcycle per physician, see flowsheet for details. HeadS[employer] Medicalt message sent. Medications reviewed and verified, instructions given. Patient denies any questions or concerns. Erma Donis RN November 22, 2023 12:53 PM Referring Provider: GAGE MORRISSEY [[id number]] Allergies As of Date: 11/22/2023 (No Known Allergies) Date Reviewed: 11/22/2023 Reviewed by: Gage Morrissey APRN.JUKEBOX CHECKER - Fully Assessed Visit Diagnosis:Female infertility [N97.9] Order(s):FOLLICULAR US [facility] [[id number]] Order #: [id number]. 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] 08/17/2023 Encounter Status:Closed by YADY HOWARD on 11/22/23NoMercy Health Springfield Regional Medical CenterFollicle Diameter USon 11-22-2023 Indication Follicle monitoring, midcycle Impression Scan for [...] Performed By: Cornelia Macario; ADÁN Read By: Yady Howard M.D.MATERNAL MEDICINESelect Medical Specialty Hospital - CantonRadiology Study observation (narrative)[facility] SerPl-aCncon 59-86-3389Ymgpeiof Qn5.1 m[IU]/mLNormalSee commentAvon HospitalComment on above:Order Comment: Specimen Type: BLOOD SPECIMEN Ordering Facility: [facility] Address: [address] [place] [address]Dgqkaf Comment: Reference range: Follicular: 2.4-12.6 mIU/mL Midcycle: 14.0-95.6 mIU/mL Luteal: 1.0-11.4 mIU/mL Post [place]: 7.7-58.5 mIU/mLPerformed By: #### 2839-9, 18963-9 #### [facility] CLIA [id number] [address] [place] [address] [facility] HOSPITALLUTEINIZING HORMONEon 32-13-6562Ikogkzlb Qn5.1 m[IU]/mLSee comment mIU/mLCleveland ClinicComment on above:Reference range: Follicular: 2.4-12.6 mIU/mL Midcycle: 14.0-95.6 mIU/mL Luteal: 1.0-11.4 mIU/mL Post Kelsey: 7.7-58.5 mIU/mL No Panel Informationon 07-96-1478Iyjjtrymp ClinicPROGESTERONEon 11-22-2023 Progesterone [Mass/Vol]0.3 ng/mLSee commentSelect Medical Specialty Hospital - CantonComment on above: Menstrual Cycle Progesterone Reference Ranges: Follicular: <1.0 ng/mL Ovulation: <12.1 ng/mL Luteal: 1.8 to 23.9 ng/mL. Progesterone Reference Ranges vary by gestational period: First Trimester: 11.0 to 44.3 ng/mL Second Trimester: 25.4 to 83.3 ng/mL Third Trimester: 58.7 to 214 ng/mL Post menopausal Progesterone: <0.5 ng/mL Reference: 1. Progesterone (Progesterone III) [package insert V 1.0 Filipino]. [facility], [place], [place]. December 2014. Progest SerPl-mCncon 64-45-3199Shodnztjqpwt [Mass/Vol]0.3 ng/mLNormalSee comment [facility] Medical CenterComment on above:Order Comment: Specimen Type: BLOOD SPECIMEN Ordering Facility: [facility] Address: [address], [place], [place] [address]Qgxcya Comment: Menstrual Cycle Progesterone Reference Ranges: Follicular: <1.0 ng/mL Ovulation: <12.1 ng/mL Luteal: 1.8 to 23.9 ng/mL. Progesterone Reference Ranges vary by gestational period: First Trimester: 11.0 to 44.3 ng/mL Second Trimester: 25.4 to 83.3 ng/mL Third Trimester: 58.7 to 214 ng/mL Post menopausal Progesterone: <0.5 ng/mL Reference: 1. Progesterone (Progesterone III) [package insert V 1.0 Filipino]. [facility], [place], [place]. December 2014.Performed By: #### 2839-9, 12624-7 #### [facility] CLIA [id number] [address] [place] [address] [facility] OF AMERICACNPNon 10-88-9864OROLAamelkdpx (REIBD) LISSA RIVAS ([id number]) 1995 F Date Time Provider Department 11/12/23 [...] Orta PA-C November 12, 2023 6:07 PM Gage Morrissey, CROP DUSTER HELPER.JUKEBOX CHECKER 11/15/2023 9:46 AM Signed Plan: Let 5mg/trigger/IUI #2 Gage Morrissey APRN.JUKEBOX CHECKER November 15, 2023 9:39 AM Please schedule the patient for the following- Location: [place] Provider: Nurse Visit type: Follicular scan Reason [...] Visit Diagnosis:Female infertility [N97.9] Order(s):FOLLICULAR US WHI [[id number]] Order #: [id number]: 1 FUTURE Prescriptions as of 11/15/2023 - [...] 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] 08/17/2023 Encounter Status:Closed by GAGE [facility]ORRISSEY on 11/15/23[facility] [id number] Visit (REIAV) LISSA RIVAS ([id number]) 1995 F Date Time Provider Department 10/26/23 11:00 AM GAGE MORRISSEY During your visit today, we recorded the following information about you: Gage Morrissey APRN.CNP 10/26/2023 11:37 AM Signed WHI GAYATHRI IUI PROCEDURE NOTE Date: 10/26/2023 Primary Proceduralist: Gage Morrissey APRN.CNP Consents and Labels Consent Signed: Informed Consent obtained and on the chart Labels Verified With Patient: Yes Indications: Lissa Rivas, is a 28 year old female here today for intrauterine insemination. IUI # Series 1 Cycle 1. Cycle Day: 15 Last menstrual period: 10/12/2023 [place] Protocol: UNIVERSAL PROTOCOL / SAFETY CHECKLIST Procedure [...] Plan of Care Visit completed when applicable. Gage Morrissey APRN.CNP IUI IUI Date: 10/26/23 Partner's [...] no menses and call with results. 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 Lead follicle: 14 Erma Donis RN October 22, 2023 7:25 AM RN called patient, name and verified. Plan given for midcycle per physician, see flowsheet for details. [employer] 2hart message sent. Medications reviewed and verified, instructions given. Patient denies any questions or concerns. Erma Donis RN October 22, 2023 1:38 PM Jason Trevizo MD 10/22/2023 11:02 PM Signed GAYATHRI Attending Physician Note: Ultrasound and lab results reviewed. Based on review of ultrasound and lab results, medication dose and follow up date plans provided. See cycle flowsheet for dosing details. Jason Trevizo MD, FLACO Referring Provider: GAGE MORRISSEY [[id number]] Allergies As of Date: 10/22/2023 (No Known Allergies) Date Reviewed: 08/18/2023 Reviewed by: Domenica Coon MA - Fully Assessed Visit Diagnosis:Female infertility [N97.9] Order(s):FOLLICULAR US [facility] [[id number]] Order #: [id number]. #:[id number]: 1 Prescriptions as of 10/22/2023 - medroxyPROGESTERone [...] 08/17/2023 Encounter Status:Closed by ERMA DONIS on 10/22/23NormalCLakeHealth Beachwood Medical CenterFollicle Diameter USon 10-22-2023 Indication Baseline TV Impression Right Ovary: Size [...] Performed By: Paula Peterson RDMS Read By: Jason Trevizo, [facility] MEDICINESelect [facility]ty Hospital - CantonRadiology Study observation (narrative)[facility] - CantonCNPNon [id number] (REIBD) LISSA RIVAS ([id number]) 1995 F Date Time Provider Department 10/20/23 SELF REIBD During your visit today, we recorded the following information about you: Valeria Carcamora 10/20/2023 2:26 PM Signed Pts pharmacy called and would like to know when she needs to order trigger shot Yoav Stovall APRN.CNP 10/20/2023 3:11 PM Signed patient instructed to order trigger now so that she has it by Wednesday Yaov Stovall APRN.CNP October 20, 2023 3:10 PM Allergies As of Date: 10/20/2023 (No Known Allergies) Date Reviewed: 08/18/2023 Reviewed by: Domencia Coon MA - Fully Assessed Reason for [...] 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 Call to patient needed: Gage Martinez APRN.CNP 10/12/2023 4:10 PM Signed The following approved medication requests have been transmitted electronically. Requested Prescriptions Signed Prescriptions Disp Refills Choriogonadotropin Pam,HumRec (OVIDREL) 250 mcg/0.5 mL syrg 0.5 mL 1 Sig: Inject 250 mcg subcutaneously one time only for 1 dose. Authorizing Provider: GAGE MORRISSEY APRN.JUKEBOX CHECKER October 12, 2023 4:10 PM Allergies As of Date: 10/12/2023 (No Known Allergies) Date Reviewed: 08/18/2023 Reviewed by: Domenica Coon MA - Fully Assessed Reason for Visit: Gage lmp today/re us day 11-13 for iui [Other] Primary Visit Diagnosis:Procreation management investigation and testing [Z31.49] Order(s):Choriogonadotropin Pam,HumRec (OVIDREL) 250 mcg/0.5 mL syrgInject 250 [...] only for 1 dose. Encounter Status:Closed by GAGE MORRISSEY on 10/12/23NormalCLakeHealth Beachwood Medical CenterNo Panel Informationon 29-31-9025Ixfjkprcjaojmy and review of laboratory resultsNormalCCleveland Clinic Euclid Hospital4 FREE/FREE THYROXINEon 06-61-7489Nddd T4 [Mass/Vol]1.1 ng/dL0.9 - 1.7 ng/dLSelect Medical Specialty Hospital - CantonTHYROID PEROXIDASE ANTIBODYon 54-20-8358Oiivvddmfahhpl and review of laboratory results Wilson HealthTPO Ab Qn3.3 [IU]/mLNINFSelect Medical Specialty Hospital - CantonComment on above: Thyroid Peroxidase Antibody test is used as an aid in diagnosis of autoimmune thyroid disease. Clinical correlation is required.[facility] Hospital - CantonTHYROID STIMULATING HORMONEon 31-82-3041MKX Qn2.690 m[IU]/LCGood Samaritan HospitalComment on above:If the patient is , TSH reference range varies by gestational period: First Trimester (weeks 9-12): 0.180-2.990 mIU/L Second Trimester: 0.110-3.980 mIU/L Third Trimester: 0.480-4.710 mIU/L Hang Ribeiro et al. A Practical Approach for the Verifications and Determination of Site- and Trimester-Specific Reference Intervals for Thyroid Function tests in . Thyroid, 2019:29:3:412-420.Samuel Gerber, et al. 2017 Guidelines of the [place] Thyroid Association for the Diagnosis and Management of Thyroid Disease during and the . Thyroid, 2017:27:3:315-389. HCG QUAL UR B/Oon 94-26-5227Ygbexgkilupwpf and review of laboratory results NormalSelect Medical Specialty Hospital - CantonPregnancy statusNegativeneg - posMorrison ClinicQuality CheckYesyes/noCleveland [facility] - ColumbusXR HYSTEROSALPINGOGRAMon 63-34-0175DO HYSTEROSALPINGOGRAM* * *Final Report* * * DATE OF EXAM: Jul 29 [...] or left fallopian tube. IMPRESSION: Normal hysterosalpingogram. Novelty Worker: DAVIS Transcribe Date/Time: Aug 02 2023 4:22P Dictated by : ADRIANNA BAUMANN MD This examination was interpreted and the report reviewed and electronically signed by: ADRIANNA BAUMANN MD on Aug 02 2023 4:23PM EST [id number] Regional Medical Center [id number] (ROCÍO) LISSA RIVAS ([id number]) 1995 F Date Time Provider Department 06/10/23 ROSMERY PUENTES [facility] During your visit today, we recorded the following information about you: Rosmery Puentes LGC 06/14/2023 1:38 PM Addendum Patient name and was confirmed at initiation of discussion. 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 Rosy Gallagher) and Otolaryngology (Dr. Franklin Laboy) to review medical management options and [...] population without disease (benign polymorphism). Please see Syntaxin message for further discussion. CHRISTIE Magdaleno Licensed, Certified Genetic Counselor Rosmery Puentes LGC 06/14/2023 1:42 PM Signed Patient [...] to get tested to try for children. Rosmery (more content not included)...[facility] 04-23-2023 CNPNTelephone ([facility]) LISSA RIVAS ([id number]) 1995 F Date Time Provider Department 04/23/23 ROSMERY PUENTES During your visit today, we recorded the following information about you: Rosmery Puentes LGC 05/17/2023 11:29 AM Signed Called [...] NTHL1, PALB2, PDGFRA, PMS2, POLD1, POLE, POT1, QZIKS1W, PTCH1, PTEN, RAD51C, RAD51D, RB1, RET, SDHA, SDHAF2, SDHB, SDHC, SDHD, SMAD4, SMARCA4, SMARCB1, SMARCE1, STK11, SUFU, PRLF060, TP53, TSC1, TSC2, and VHL The Multi-Cancer panel looks at genes associated with cancers of the breast, gynecologic tract (ovarian, uterine/endometrial), gastrointestinal system (colorectal, gastric, pancreatic), endocrine glands (thyroid, parathyroid, pituitary, adrenal glands), genitourinary tract (renal/urinary tract, prostate), skin (melanoma, basal cell carcinoma), and brain/nervous system. AM CHECKING WITH INVITAE FIRST ABOUT VARIANT BEFORE PROCEEDING, WILL CONTACT PATIENT WHEN READY TO MOVE FORWARD. Rosmery Puentes MS, [facility] Licensed, Certified Genetic Counselor Rosmery Puentes LGC 05/17/2023 11:29 AM Signed Spoke [...] detect the familial mutation. Reviewed testing at [facility] as the best option, since we know that they detected this particular mutation in her mother. The patient was offered SDHA single site mutation analysis through [employer] or self pay Integrated BRACAnalysis with [employer] and SDHA single site mutation analysis through [employer]. After considering the risks, benefits, and limitations, the patient chose to pursue and provided informed consent for the following testing: SELF PAY Integrated BRACAnalysis with my[employer] and SDHA single site mutation analysis through [employer]. The [employer] panel includes APC, MICHAEL, AXIN2, BAP1, BARD1, BMPR1A, BRCA1, BRCA2, BRIP1, CDH1, CDK4, CDKN2A, CHEK2, CTNNA1, EGFR, EPCAM, FH, FLCN, GREM1, HOXB13, MEN1, MET, MITF, MLH1, MSH2, MSH3, MSH6, MUTYH, NTHL1, PALB2, PMS2, POLD1, POLE, PTEN, RAD51C, RAD51D, RET, SDHA, SDHB, SDHC, SDHD, SMAD4, STK11, TERT, TP53, TSC1, TSC2, and VHL [employer] looks at genes related to inherited breast, ovarian, pancreatic, prostate, colon, uterine, kidney, lung, endocrine, and stomach cancer, as well as inherited colon polyp and melanoma syndromes. We discussed that an NGS panel can rarely result in an unexpected finding which may or may not be related to the presenting phenotype. We discussed that [employer] may contact the patient by text or phone call regarding billing. The patient should watch for this communication and respond promptly. The patient should contact [employer] directly with any billing questions (ph. [phone]). Rosmery Puentes MS, [facility] Licensed, Certified Genetic Counselor Allergies As of Date: 04/23/2023 (No Known Allergies) Date Reviewed: 01/04/2023 Reviewed by: Domenica Coon Ma - Fully Assessed Reason for Visit: Follow Up [171] Primary Visit Diagnosis:Family history of cancer [Z80.9] Other Visit Diagnosis:Family history of gene mutation [Z84.81] Order(s):[facility] SEND OUT TST 1 [SQMISC1] Order #: [id number] FUTURE Prescriptions as of 05/17/2023 - letrozole [...] Of Date 04/23/2023 No (more content not included)...Normal [facility] 07-08-5842Rquwznvxa Clinic Vital Signs Date TimeVital SignValuePerforming VveemfnuuHldzxmfq10-47-8973 08:59-0400Body mass index (BMI) [Ratio]36.31 kg/y2Bynde [employer] Work Phone: [facility] HealthcareAoazdlhkkl46-92-3615 08:59-0400Body .99 kgCore [employer] Work Phone: [facility]OMiss[facility] Medical CenterWyslbcdnch67-35-4539 08:59-0400Diastolic blood arnacbci76 mm[Hg]SaravananSangamo [employer] Work Phone: [facility] HealthcareDjflsytguh04-71-5726 08:59-0400Systolic blood aanijllq127 mm[Hg]Saravanan [employer] Work Phone: [facility] HealthcareYoropydkhr84-73-4620 14:39-0400Body zvtoln850.02 Americo Velazquez MD Work Phone: [facility]08-21-2025 14:39-0400 Body mass index (BMI) [Ratio]36.1 kg/c2AnvfnkLito Velazquez MD Work Phone: [facility]08-21-2025 14:39-0400 Body .53 kgLito Velazquez MD Work Phone: [facility]08-21-2025 14:39-0400 Diastolic blood mm[Hg]Lito Velazquez MD Work Phone: [facility]08-21-2025 14:39-0400 Heart rate76 /minLito Velazquez MD Work Phone: [address] [place], [place] 7906208-21-2025 14:39-0400 Respiratory rate18 /minLito Velazquez MD Work Phone: [address] [place], [place] 7906208-21-2025 14:39-0400 SaO2% (BldA) [Mass fraction]99 %Lito Velazquez MD Work Phone: [facility]08-21-2025 14:39-0400 Systolic blood slilhtmq782 mm[Hg]Lito Velazquez MD Work Phone: [facility]08-14-2025 10:29-0400 Body mass index (BMI) [Ratio]36.34 kg/a6Apkue Zita DO Work Phone: [facility] HealthcareHvfpknpqzt49-82-2416 10:29-0400Body vwayqq00.04 kgCorey Zita DO Work Phone: [facility] HealthcareIoxzdusajj73-73-6792 10:29-0400Diastolic blood mm[Hg]Saravanan Zita DO Work Phone: [facility] HealthcareOgotzwusym48-95-4118 10:29-0400Systolic blood qdnemelt126 mm[Hg]Saravanan Zita DO Work Phone: [facility] HealthcareJocundttnt79-26-4044 13:52-0400Body mass index (BMI) [Ratio]40.39 kg/k7Uzlwv Zita DO Work Phone: [facility] HealthcareEuilslqgml01-09-4113 13:52-0400Body karpsb048.42 kgCorey Zita DO Work Phone: [facility] HealthcareLzfqkrlzkb20-57-1449 13:52-0400Diastolic blood ckepevgd66 mm[Hg]Saravanan Zita DO Work Phone: [facility] HealthcareYiswvkkees24-56-5821 13:52-0400Systolic blood ufxhdvkg529 mm[Hg]Saravanan Zita DO Work Phone: [facility] HealthcareTenmybawtu21-14-6163 08:32-0400Body znvitc586 cm Ran Corona MD Work Phone: 1(878)[address] [place], [place] 9803807-28-2025 08:32-0400Body mass index (BMI) [Ratio]40.35 kg/l3BisftseyRan Corona MD Work Phone: 1(156)[address] [place], [place] 9803807-28-2025 08:32-0400Body qjisel393.33 kgRan Corona MD Work Phone: 1(773)[address] [place], [place] 9803807-28-2025 08:32-0400Diastolic blood xfpoelmi23 mm[Hg]Ran Corona MD Work Phone: 1(992)[address] [place], [place] 9803807-28-2025 08:32-0400Heart rate 93 /minRan Corona MD Work Phone: 1(658)[address] [place], [place] 9803807-28-2025 08:32-0400Systolic blood llerocwj713 mm[Hg]Ran Corona MD Work Phone: 1(009)[address] [place], [place] 9803807-23-2025 14:18-0400Body .02 Americo Velazquez MD Work Phone: [facility]07-23-2025 14:18-0400 Body mass index (BMI) [Ratio]40.1 kg/o8KrawosLito Velazquez MD Work Phone: [facility]07-23-2025 14:18-0400 Body dydzyc149.96 kgLito Velazquez MD Work Phone: [facility]07-23-2025 14:18-0400 Diastolic blood wlmbpclo82 mm[Hg]Lito Velazquez MD Work Phone: [facility]07-23-2025 14:18-0400 Heart zsss282 /minLito Velazquez MD Work Phone: [facility]07-23-2025 14:18-0400 Respiratory rate18 /minLito Velazquez MD Work Phone: [facility]07-23-2025 14:18-0400 SaO2% (BldA) [Mass fraction]98 %Lito Velazquez MD Work Phone: [facility]07-23-2025 14:18-0400 Systolic blood pvybubeu029 mm[Hg]Lito Velazquez MD Work Phone: [facility]07-21-2025 09:03-0400 Body mass index (BMI) [Ratio]40.61 kg/f0Tijay Zita DO Work Phone: [facility] HealthcareIzkrqwgvjm41-23-9816 09:03-0400Body .99 kgCorey Zita DO Work Phone: [facility] HealthcareLftzrnfajh84-75-3700 09:03-0400Diastolic blood mm[Hg]Saravanan Zita DO Work Phone: [facility] HealthcareJijqjrrshe95-89-5562 09:03-0400Systolic blood luouhonz387 mm[Hg]Saravanan Ziat DO Work Phone: [facility] HealthcareVczwtoribd47-46-8199 14:04-0400Body jeglfh310 cm Siria Rebolledo CROP DUSTER HELPER-JUKEBOX CHECKER Work Phone: [facility]07-16-2025 14:04-0400Body mass index (BMI) [Ratio]40.28 kg/c6SbexwazjSiria Rebolledo CROP DUSTER HELPER-JUKEBOX CHECKER Work Phone: [facility]07-16-2025 14:04-0400Body .15 kgSiria Rebolledo CROP DUSTER HELPER-JUKEBOX CHECKER Work Phone: [facility]07-16-2025 14:04-0400Diastolic blood oywrlaad41 mm[Hg]Siria Rebolledo CROP DUSTER HELPER-JUKEBOX CHECKER Work Phone: 1(990)200-[address] [place], [place] 2472907-16-2025 14:04-0400Heart rate 106 /minSiria Rebolledo CROP DUSTER HELPER-JUKEBOX CHECKER Work Phone: 1(437)061-[address] [place], [place] 2472907-16-2025 14:04-0400Systolic blood fwiimpfz510 mm[Hg]Siria Rebolledo CROP DUSTER HELPER-JUKEBOX CHECKER Work Phone: 1(600)728-[address] [place], [place] 2472907-14-2025 09:20-0400Body mass index (BMI) [Ratio]40.3 kg/u7Nsiys Zita DO Work Phone: [facility] HealthcareGrqpjlrskd03-26-6518 09:20-0400Body ugcfmc103.19 kgCorey Zita DO Work Phone: [facility] HealthcareRyjjxzptks25-42-0576 09:20-0400Diastolic blood mm[Hg]Saravanan Zita DO Work Phone: 1(862)952-[address] [place], [place] [address]Allcsewnwe89-12-8637 09:20-0400Systolic blood bqsbcjoi856 mm[Hg]Saravanan Zita DO Work Phone: [facility] HealthcareWkbrbmcuva65-16-7255 11:12-0400Body mass index (BMI) [Ratio]40.1 kg/f3Bfbgb Zita DO Work Phone: [facility] HealthcareMemahwgmjh59-96-8220 11:12-0400Body jxccae064.69 kgCorey Zita DO Work Phone: [facility] HealthcareKcrhtdpkoz50-12-3986 11:12-0400Diastolic blood vedlnnyt46 mm[Hg]Saravanan Zita DO Work Phone: [facility] HealthcareKdjzdpgtdn69-02-0029 11:12-0400Systolic blood ocjydfhr342 mm[Hg]Saravanan Zita DO Work Phone: [facility] HealthcareLefuhkhhxn21-35-6227 13:26-0400Body mass index (BMI) [Ratio]39.95 kg/u4Xwzxo Zita DO Work Phone: 1(419)483-[address] [place], [place] [address]Kvltbyjupb57-18-0495 13:26-0400Body tjessr334.29 kgCorey Zita DO Work Phone: 1(159)821-[address] [place], [place] [address]Udghjwubaw12-86-8080 13:26-0400Diastolic blood thjirgai76 mm[Hg]Saravanan Zita DO Work Phone: 1(156)686-[facility] HealthcareRpjbzxhmah40-55-6743 13:26-0400Systolic blood ngtqqlue772 mm[Hg]Saravanan Zita DO Work Phone: 1(505)712-[address] [place], [place] [address]Jwezaqiihs99-64-8515 11:47-0400Body mass index (BMI) [Ratio]39.59 kg/s0Vvcgw Zita DO Work Phone: 1(568)468-[address] [place], [place] [address]Bqbwvpojhc07-23-5775 11:47-0400Body wyidaw239.38 kgCorey Zita DO Work Phone: 1(682)013-[address] [place], [place] [address]Tqerbdgbcl84-98-0417 11:47-0400Diastolic blood mm[Hg]Saravanan Zita DO Work Phone: 1(177)132-[address] [place], [place] [address]Wublvbohsd80-48-6604 11:47-0400Systolic blood mm[Hg]Saravanan Zita DO Work Phone: 1(374)847-[address] [place], [place] [address]Oqlwwlqgoc92-81-1384 10:39-0400Diastolic blood wyvohgjs19 mm[Hg]Brian Lavoy PA-C Work Phone: [phone])[address]06-17-2025 10:39-0400Systolic blood frirqtqg952 mm[Hg]Brian Lavoy PA-C Work Phone: 1(157)362-[address] [place], [place] 6565706-17-2025 10:08-0400Body krxapi446 cmColleen Lavoy PA-C Work Phone: 1(687)125-[address] [place], [place] 6565706-17-2025 10:08-0400Body mass index (BMI) [Ratio]39.57 kg/x4Lmbzapx Lavoy PA-C Work Phone: 1(208)931-[address] [place], [place] 6565706-17-2025 10:08-0400Body kncbve290.33 kgColleen Lavoy PA-C Work Phone: [facility]06-05-2025 15:22-0400Body cmAngektan Zuñiga RN Work Phone: 1(264)194-[address] [place], [place] 2472906-05-2025 15:22-0400Body mass index (BMI) [Ratio]39.5 kg/w3JkziwgCristiana Zuñiga RN Work Phone: 1(573)837-[address] [place], [place] 2472906-05-2025 15:22-0400Body bddmes564.15 kgAngehoang Zuñiga RN Work Phone: 1(178)902-[address] [place], [place] 2472906-04-2025 11:46-0400Body mass index (BMI) [Ratio]39.4 kg/v2Fcmho Zita DO Work Phone: [facility] HealthcareUpccgupukh86-50-7394 11:46-0400Body fkoope120.88 kgCorey Zita DO Work Phone: [facility] HealthcareFluoveawve22-13-3710 11:46-0400Diastolic blood neeyejxe08 mm[Hg]Saravanan Zita DO Work Phone: [facility] HealthcareExvnufqzer04-12-4109 11:46-0400Systolic blood xjbxxruy643 mm[Hg]Saravanan Zita DO Work Phone: [facility] HealthcareDvolnrwynp89-60-5913 08:38-0400Body mass index (BMI) [Ratio]40.08 kg/m2Rupal THAYER Work Phone: [facility] HealthcareFuhjdurnbw27-25-8784 08:38-0400Body iomgki615.63 kgRupal THAYER Work Phone: [facility] HealthcareMsgtebvlhy10-18-6486 08:38-0400Diastolic blood ejtvniom89 mm[Hg]Rupal THAYER Work Phone: [facility] HealthcareLrccpnkpia70-09-0578 08:38-0400Systolic blood uyjeiqsn623 mm[Hg]Rupal THAYER Work Phone: [facility] HealthcarePcviyenenb43-80-3047 09:20-0400Body uikrku498 cm Lito Velazquez MD Work Phone: [address] [place], [place] [address]Wsatcvgalx57-38-0482 09:20-0400Body mass index (BMI) [Ratio]40.03 kg/i1FsgjyaLito Velazquez MD Work Phone: [facility] HealthcareDjufasrpur90-47-3702 09:20-0400Body puvyes414.51 kgLito Velazquez MD Work Phone: [facility] HealthcareCkeoqfrenq93-86-6519 09:20-0400Diastolic blood wadavafz13 mm[Hg]Lito Velazquez MD Work Phone: [facility] HealthcareCiullwycby80-93-7489 09:20-0400Heart rate90 /min Lito Velazquez MD Work Phone: [facility] HealthcareMxyduxaixj50-45-7318 09:20-6934UbW3% (BldA) [Mass fraction]98 %Lito Velazquez MD Work Phone: [facility] HealthcareLruqhsubcw54-10-6336 09:20-0400Systolic blood dguirwgm903 mm[Hg]Lito Velazquez MD Work Phone: [facility] HealthcarePtpanjntpg89-55-0629 16:00-0500Body yretsx159 cm Marjorie Rus DPM Work Phone: [facility] HealthcareLfgmkvtcse53-92-6835 16:00-0500Body mass index (BMI) [Ratio]38.83 kg/n0Nnaaljj Rusher DPM Work Phone: [facility] HealthcareKffrbyexqf35-38-8173 16:00-0500Body mibnem82.43 kgCaronony Rusher DPM Work Phone: [phone] HealthcareZxcfpchigz55-23-5274 10:25-0500Body cm Usha Roof DO Work Phone: [facility]12-11-2024 10:25-0500 Body mass index (BMI) [Ratio]40.03 kg/n1Nvgvq Roof DO Work Phone: [facility]12-11-2024 10:25-0500 Body ohqhlviwyhf37.39 [degF]Usha Roof DO Work Phone: [facility]12-11-2024 10:25-0500 Body lkwcgy876.51 kgShcarin Blackwell DO Work Phone: [facility]12-11-2024 10:25-0500 Diastolic blood hrfhbaxq81 mm[Hg]Usha Roof DO Work Phone: [facility]12-11-2024 10:25-0500 Systolic blood ewzegerq066 mm[Hg]Usha Roof DO Work Phone: [facility]11-19-2024 15:12-0500 Body bjfvug798 cmWimoises Goldsmith DO Work Phone: [facility] HealthcareQsupioqjnx24-66-2021 15:12-0500Body mass index (BMI) [Ratio]38.26 kg/t3UmqxnfxVero Goldsmith DO Work Phone: [facility] HealthcarePcgupivvxn91-36-3343 15:12-0500Body wmsgos31.98 kgVero Goldsmith DO Work Phone: [facility] HealthcareEkomlopxax95-01-0097 15:12-0500Diastolic blood ndlbjdpy93 mm[Hg]Vero Goldsmith DO Work Phone: [facility] HealthcarePxfanysrtd98-13-7116 15:12-0500Systolic blood gbepxuzj895 mm[Hg]Vero Goldsmith DO Work Phone: [facility] HealthcareUnlpdrphcn50-99-6354 10:02-0400Body mass index (BMI) [Ratio]40.65 kg/r7JqpevhyvRosy Gallagher MD Work Phone: [facility]05-21-2024 10:02-0400Body .1 kgRosy Gallagher MD Work Phone: [facility]05-21-2024 10:02-0400Diastolic blood cwfemufg49 mm[Hg]Rosy Gallagher MD Work Phone: [facility]05-21-2024 10:02-0400Heart rate73 /min Rosy Gallagher MD Work Phone: [facility]05-21-2024 10:02-0400Systolic blood ljugakic098 mm[Hg]Rosy Gallagher MD Work Phone: [facility]03-31-2023 19:10-0400Body psgoje362.48 cmPamelmanny Kay Other [employer] Other 03-31-2023 19:10-0400Body mass index (BMI) [Ratio] 40.64 kg/h3Xnmhof Dymond Other Social [employer] Other 03-31-2023 19:10-0400Body .79 kgParadha Kay Other noPage365 Other 03-31-2023 19:10-0400Diastolic blood cybellqi46 mm[Hg] Josefina Catesmond Other [employer] Other 03-31-2023 19:10-0400Respiratory rate18 /minJosefina Kay Other [employer] Other 03-31-2023 19:10-4608AfL3% (BldA) [Mass fraction]98 % Josefina Eliza Other [employer] Other 03-31-2023 19:10-0400Systolic blood mm[Hg] Josefina Eliza Other [employer] Other Encounters Encounter DateEncounter TypeCare ProviderFacilityStart: 12-14-2024 End: 07-89-7163Mtzlnbn encounter procedureAngie Ramirez APRN -Electrodiagnostics Work Phone: Start: 12-14-2024 End: 92-76-4337ykreppixvmVfauul Hill MD Work Phone: [facility] Work Phone: Start: 12-11-2024 End: 36-99-9542wltnxvuteyHbgzp Zita DO Work Phone: [facility] OBGYNStart: 12-11-2024 End: 33-43-5688Nzjxzy-up encounterCorey Zita DO Work Phone: [facility] OBGYNComment on above:6 weeks follow-up ([facility])Start: 11-16-2024 End: 67-37-2859rwjcywrygoMoblsx Hill MD Work Phone: [facility] Work Phone: Start: 11-16-2024 End: 23-21-7481Qrzmgdj encounter Eric Ramirez [facility] Card[facility] Work Phone: Start: 11-09-2024 End: 04-33-3612Yjfcpu flowsheetCorey Zita DO Work Phone: [facility]BGYNStart: 11-09-2024 End: 61-19-7264Hjuwwg flowsheetCorey Zita DO Work Phone: [facility]BGYNStart: 11-09-2024 End: 93-52-9899Twqftceks encounterGaye Hollis LPN Work Phone: [facility] OBGYNStart: 11-09-2024 End: 88-58-3888akuwroisniWKABV FAZIONot AvailableStart: 11-09-2024 End: 62-98-0137Lpfwgl follow up visit related to original pxCorey Zita DO Work Phone: [facility] [place] OBGYNComment on above:Follow-up, , routine ([facility]); S/P C-sectionStart: 11-08-2024 End: 03-69-4939Orvlcoapy EncounterProMedica [address] NICUStart: 11-07-2024 End: 75-73-8556Wyfgmgurb EncounterProMedica [facility] NICUStart: 11-06-2024 End: 46-31-4786Cgdmsfcby EncounterProPro[facility] NICUStart: 11-04-2024 End: 40-24-7751Vvmtsrqmc EncounterProProMedica [facility] 3E NICUStart: 11-03-2024 End: 04-71-3050Cqqseyzju encounterSamina Yobany RNMaternal- Medicine at [facility] Hospitaltart: 11-03-2024 End: 90-66-4401Wcogjnxst department patient visitDAVID A [facility] Hospitaltart: 10-31-2024 End: 06-50-4435Xsbzruxbw encounterBevania EnriquezMorristown-[facility] [place] Start: 10-30-2024 End: 18-31-1531Dkiblrbxrn and management of inpatientDAVID A [facility] Hospitaltart: 10-26-2024 End: 86-47-2356Zwxfpzbkd Result EncounterCorey Zita DO Work Phone: [facility] External Department UnsolicitedStart: 10-26-2024 End: 15-75-8505Ucgimlhbz Result EncounterCorey Zita DO Work Phone: noms External Department UnsolicitedStart: 10-24-2024 End: 36-74-7126Qmwljvxjr Result EncounterGeneric External Data ProviderNOMS External Department UnsolicitedStart: 10-24-2024 End: 16-85-9494Owqmkgvyu Result EncounterGeneric External Data ProviderNOMS External Department UnsolicitedStart: 10-24-2024 End: 39-37-5578Nntqnjtbsuiey Layla VAZ Work Phone: [phone]-Nqlte Medicine at [facility] Start: 10-23-2024 End: 68-02-5287Gldehc flowsheetCorey Zita DO Work Phone: [facility] [place] OBGYNStart: 10-23-2024 End: 08-55-4708Zyjvhf flowsheetCorey Zita DO Work Phone: [facility] [place] OBGYNStart: 10-23-2024 End: 97-46-8346Qyzpqdkfm Result EncounterGeneric External Data ProviderNOMS External Department UnsolicitedStart: 10-23-2024 End: 56-44-7677arvusbijaeCRFJG FAZIONot AvailableStart: 10-23-2024 End: 23-56-3499Tmoojjgf flow sheetCorey Zita DO Work Phone: [facility] [place] OBGYNComment on above:Third trimester ([facility]); 36 weeks gestation of ([facility]); induced hypertension, antepartum ([facility])Start: 10-23-2024 End: 26-24-0287bpccenyurtRUUQUUGP P DOCHEVAProMedica [facility] Hospitaltart: 10-23-2024 End: 98-99-7714Ltfgwz outpatient visit 40 minutesRan Corona MD Work Phone: [phone]-Tdmjp Medicine at [facility] Comment on above:36 weeks gestation of (Primary Dx); Gestational diabetes requiring insulin; Pre-eclampsia in third trimester; Non-sustained ventricular tachycardia ([facility])Start: 10-18-2024 End: 91-61-4334zlsvjfvkxvDstysk Hill MD Work Phone: [facility] Work Phone: Start: 10-18-2024 End: 21-47-0771Ehczfsr encounter Liset Pérez MD-[facility] Work Phone: Start: 10-17-2024 End: 16-07-1937Bhqarksny Result EncounterCorey Zita DO Work Phone: n[facility] External Department UnsolicitedStart: 10-17-2024 End: 58-88-8340Aezjsedst Result EncounterCorey Zita DO Work Phone: [facility] External Department UnsolicitedStart: 10-17-2024 End: 69-97-9805Puogjdusa encounterDeborah Dario LD Work Phone: [phone]-Cybok Medicine at [facility] Start: 10-16-2024 End: 36-20-7362Rupxmb flowsheetCorey Zita DO Work Phone: noms BCP OBStart: 10-16-2024 End: 55-94-6273Kkapcv flowsheetCorey Zita DO Work Phone: [facility] BCP OBStart: 10-16-2024 End: 95-35-7169Vrekgxxnt Result EncounterGeneric External Data ProviderNOMS External Department UnsolicitedStart: 10-16-2024 End: 49-55-1891Mouctxqj flow sheetCorey Zita DO Work Phone: noms BCP OBComment on above: induced hypertension, antepartum ([facility]) (Primary Dx); Third trimester ([facility]); 35 weeks gestation of ([facility])Start: 10-16-2024 End: 64-26-4262pwhoxwolufHAZXO FAZIONot AvailableStart: 10-11-2024 End: 73-14-1570Edrlhhdoi Result EncounterCorey Zita DO Work Phone: [facility] External Department UnsolicitedStart: 10-11-2024 End: 97-23-4776Zxwsyznbt Result EncounterCorey Zita DO Work Phone: [facility] External Department UnsolicitedStart: 10-11-2024 End: 97-27-9772Auqlrp outpatient visit 25 minutesSiria Rebolledo APRN-JUKEBOX CHECKER Work Phone: [phone]-Bwpei Medicine at [facility] Comment on above:Insulin controlled gestational diabetes mellitus (GDM) in third trimester (Primary Dx)Start: 10-11-2024 End: 36-02-0901bhajeiiansPLLBIIPE BROGANProMediCincinnati Shriners Hospitaltart: 10-09-2024 End: 45-33-5541Eyupjz flowsheetCorey Zita DO Work Phone: [facility] BCP OBStart: 10-09-2024 End: 28-00-7494Gpuumo flowsheetCorey Zita DO Work Phone: [facility] BCP OBStart: 10-09-2024 End: 40-36-4021ejhjhgeffmAZFHQ FAZIONot AvailableStart: 10-09-2024 End: 00-11-0582Vvpnhyxb flow sheetCorey Zita DO Work Phone: noms BCP OBComment on above:Third trimester ([facility]); 34 weeks gestation of ([facility]); Herpes simplex virus type 1 (HSV-1) dermatitis; Insulin controlled gestational diabetes mellitus (GDM) during , antepartum ([facility])Start: 10-04-2024 End: 03-68-4176Deqprekyv Result EncounterGeneric External Data ProviderNOMS External Department UnsolicitedStart: 10-04-2024 End: 67-41-3998Bnnlrddeh Result EncounterGeneric External Data ProviderNOMS External Department UnsolicitedStart: 10-02-2024 End: 58-43-5565Kkajbsil flow sheetCorey Zita DO Work Phone: noms BCP OBComment on above:Herpes simplex (Primary Dx); 33 weeks gestation of ([facility]); Encounter for routine care ([facility]); Third trimester ([facility])Start: 10-02-2024 End: 49-27-6921bltnentyozHIJPX FAZIONot AvailableStart: 09-27-2024 End: 73-89-1320Hnuctbnht Result EncounterGeneric External Data ProviderNOMS External Department UnsolicitedStart: 09-27-2024 End: 48-58-5093Eiiqymvff Result EncounterGeneric External Data ProviderNOMS External Department UnsolicitedStart: 09-26-2024 End: 52-04-8793Derdnz-up encounterRosy Gallagher MD Work Phone: EndocrinologyStart: 09-25-2024 End: 06-79-2952Nfkbxp flowsheetCorey Zita DO Work Phone: [facility] BCP OBStart: 09-25-2024 End: 86-02-4077Pkesrk flowsheetCorey Zita DO Work Phone: [facility] BCP OBStart: 09-25-2024 End: 35-51-4625Sqtfautt flow sheetCorey Zita DO Work Phone: noms BCP OBComment on above:Third trimester ([facility]); Insulin controlled gestational diabetes mellitus (GDM) during , antepartum ([facility]-HCC); 32 weeks gestation of ([facility])Start: 09-25-2024 End: 55-61-3146susaxzfbfdGRMAQ FAZIONot AvailableStart: 09-20-2024 End: 53-17-2950Etywzp outpatient visit 25 minutesSiria GONZALEZ Work Phone: [phone]-Pgyma Medicine at [facility] Comment on above:Insulin controlled gestational diabetes mellitus (GDM) in third trimester (Primary Dx); Gestational diabetes requiring insulinStart: 09-20-2024 End: 11-44-4674ijwpzhmcckUEEOTSGQ BROGANProFlower Hospital HospitalStart: 09-18-2024 End: 35-79-9103Cnehrc Ace Rose CMAMaternal- Medicine at [facility] HospitalComment on above:Gestational diabetes requiring insulin; Elevated blood pressure affecting , antepartum; Insulin controlled gestational diabetes mellitus (GDM) in third trimester; Abnormal liver enzymesStart: 09-14-2024 End: 79-33-7884Lbrkirorg Result EncounterGeneric External Data ProviderNOMS External Department UnsolicitedStart: 09-14-2024 End: 64-98-9998Wtajqczaa Result EncounterGeneric External Data ProviderNOMS External Department UnsolicitedStart: 00-23-6235Wvd-patient / Non-visitGeorge Chris Fair MD-[facility] Work Phone: Start: 09-13-2024 End: 36-47-9349Rffksb flowsheetCorey Zita DO Work Phone: [facility] BCP OBStart: 09-13-2024 End: 44-47-4512Icyqmb flowsheetCorey Zita DO Work Phone: [facility] BCP OBStart: 09-13-2024 End: 83-93-1396zulxjqohudMBLNM FAZIONot AvailableStart: 09-13-2024 End: 97-81-7889Vwfaksaj flow sheetCorey Zita DO Work Phone: noms BCP OBComment on above:History of gestational diabetes (Primary Dx); Third trimester ([facility]); 31 weeks gestation of ([facility])Start: 09-12-2024 End: 15-26-7938Vwcdwrjpw Result EncounterCorey Zita DO Work Phone: noms External Department UnsolicitedStart: 09-12-2024 End: 58-76-3931Pjhojreeu Result EncounterCorey Zita DO Work Phone: noms External Department UnsolicitedStart: 09-12-2024 End: 46-37-9641Rkwyipqxenaiw procedureCodenilson Poe PA-C Work Phone: [phone]-Hjqcq Medicine at [facility] Start: 09-12-2024 End: 52-81-5481Xrtstp outpatient new 45 minutesCodenilson Poe PA-C Work Phone: [phone]-Byort Medicine at [facility] Comment on above:Insulin controlled gestational diabetes mellitus (GDM) in third trimester; Abnormal liver enzymes; Abnormal genetic test; Gestational diabetes requiring insulin; Elevated blood pressure affecting , antepartumStart: 09-12-2024 End: 26-94-6240vwggyglbzrEJFZUMS E DEEPIKAProMedica Mer[facility]field Hospitaltart: 09-11-2024 End: 91-55-8171Qipvnrdgjkge consultation with patientRosy Gallagher MD Work Phone: EndocrinologyStart: 09-11-2024 End: 58-27-2529fatwmnpgstRgpgajes Rao MD Work Phone: EndocrinologyComment on above:Monoallelic mutation of SDHA gene (Primary Dx); Gestational diabetes mellitus (GDM) in third trimester, gestational diabetes method of control unspecified (HCC)Start: 09-06-2024 End: 21-52-6454Qhdlgz Lex Meade [employer] 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 Hospitaltart: 08-31-2024 End: 63-85-3597zvzxfgrpspOsvwrb M Frey RN Work Phone: [phone]-Pxkjr Medicine at [facility] Comment on above:Gestational diabetes mellitus (GDM) in third trimester, gestational diabetes method of control unspecified (Primary Dx)Start: 08-30-2024 End: 02-15-3874Jtcthd flowsheetCorey Zita DO Work Phone: noms BCP OBStart: 08-30-2024 End: 17-58-4438Zvrsrm flowsheetCorey Zita DO Work Phone: [facility] BCP OBStart: 08-30-2024 End: 64-43-0350Ajokj abstractingScanning Provider ExternalMaternal- Medicine at [facility] Hospitaltart: 08-30-2024 End: 60-25-8766flqogjjleoXBSXW FAZIONot AvailableStart: 08-30-2024 End: 28-94-4893Xfgvfsrn flow sheetCorey Zita DO Work Phone: n[facility] BCP OBComment on above:28 weeks gestation of ; Third trimester ; Gestational diabetes mellitus (GDM), antepartum, gestational diabetes method of control unspecified; Herpes simplex virus type 1 (HSV-1) dermatitisStart: 08-24-2024 End: 17-97-7588Pnjhhns encounter procedureLito Velazquez MD Work Phone: [facility]-Electrodiagnostics Work Phone: Start: 08-24-2024 End: 91-97-9635muettoxsezLvprud Hill MD Work Phone: [facility] Work Phone: Start: 42-50-8774Juo-patient / Non-visitLinda Toña MUKHERJEE-[facility] Work Phone: Start: 08-23-2024 End: 80-10-8389Waauvghqe Result EncounterGeneric External Data ProviderNOMS External Department UnsolicitedStart: 08-23-2024 End: 26-78-6857Qrlrvtltv Result EncounterGeneric External Data ProviderNOMS External Department UnsolicitedStart: 08-16-2024 End: 11-57-6873Banqmf flowsheetAmy Jorge PA Work Phone: noms BCP OBStart: 08-16-2024 End: 97-78-5182Avoznx flowsheetAmy Jorge PA Work Phone: noms BCP OBStart: 08-16-2024 End: 62-63-3158Wlztzmmn flow sheetAmy Jorge PA Work Phone: noms BCP OBComment on above:Second trimester ; 26 weeks gestation of pregnancyStart: 08-16-2024 End: 63-85-8656hgsimvkxviMQM JORGENot AvailableStart: 08-07-2024 End: 22-86-9261Lmvwijbtb Result EncounterGeneric External Data ProviderNOMS External Department UnsolicitedStart: 08-07-2024 End: 67-85-0350Sizhozsto Result EncounterGeneric External Data ProviderNOMS External Department UnsolicitedStart: 07-18-2024 End: 58-66-7673Txpgqvg encounter procedureLito Velazquez MD Work Phone: [facility] Work Phone: Start: 07-18-2024 End: 39-78-9381Otjqdhtp preventive med est patient 18-39 yrsLito Velazquez MD Work Phone: noms SWS IMComment on above:Annual physical exam (Primary Dx); Hepatic steatosis; Monoallelic mutation of SDHA gene; Polycystic ovaries; Vitamin D deficiency; Palpitations; MurmurStart: 07-18-2024 End: 10-51-7705zrdfdjwxqbRMFRKX Gema Villasenor AvailableStart: 07-17-2024 End: 34-78-3411Aevjga flowsheetCorey Zita DO Work Phone: noms BCP OBStart: 07-17-2024 End: 60-16-6920Hhllxq flowsheetCorey Zita DO Work Phone: noms BCP OBStart: 07-17-2024 End: 27-62-5789iuspvbfgcjKXZFK FAZIONot AvailableStart: 07-17-2024 End: 74-29-4577Lwtabngb flow sheetCorey Zita DO Work Phone: noms BCP OBComment on above:Diabetes mellitus screening; Second trimester ; 22 weeks gestation of pregnancyStart: 07-05-2024 End: 43-02-4452ihrqtkcwamTJVMH FAZIONot AvailableStart: 06-30-2024 End: 89-86-5463X-mail encounter from caregiverJosefina Harris RN Work Phone: OtolaryngologyStart: 06-30-2024 End: 68-40-6758Jrwcjb-up encounterJosefina Harris RN Work Phone: OtolaryngologyComment on above:SDHA follow upStart: 06-19-2024 End: 85-58-0558btvhxywejrPHHAA FAZIONot AvailableStart: 06-19-2024 End: 72-30-0633nuivqyoijsISGMU FAZIONot AvailableStart: 05-23-2024 End: 80-60-5843Xagtsj outpatient new 30 minutesMarjorie Ferrer DPM Work Phone: noms PODIATRYComment on above:Onychomycosis (Primary Dx); Onychodystrophy; Xerosis cutis; Fissure in skin of both feetStart: 05-23-2024 End: 41-84-9085cenawolrulBEYBYNB Timothy Lamb AvailableStart: 05-23-2024 End: 45-60-7139Txwndlemn Result EncounterGeneric External Data ProviderNOMS External Department UnsolicitedStart: 05-23-2024 End: 76-64-0401Xpcfalykw Result EncounterGeneric External Data ProviderNOMS External Department UnsolicitedStart: 05-22-2024 End: 14-24-4691Yuzlkx flowsheetCorey Zita DO Work Phone: [facility] BCP OBStart: 05-22-2024 End: 80-06-2560Rjsiki flowsheetCorey Zita DO Work Phone: [facility] BCP OBStart: 05-22-2024 End: 77-94-9962Lmkgcmmk flow sheetCorey Zita DO Work Phone: noms BCP OBComment on above:Second trimester ; 14 weeks gestation of ; Spotting in pregnancyStart: 05-22-2024 End: 84-21-8595mtfxoihzfkWVGPX FAZIONot AvailableStart: 05-15-2024 End: 28-51-2762orxwijkjjoEQDIZ FAZIONot AvailableStart: 05-15-2024 End: 57-01-3146Ixvmjo outpatient visit 5 minutesNoms Bcp Ob Zita NurseNOMS BCP OBComment on above:First trimester ; 13 weeks gestation of ; Urinary tract infection without hematuria, site unspecifiedStart: 04-21-2024 End: 65-17-1331Phohbktnw Result EncounterGeneric External Data ProviderNOMS External Department UnsolicitedStart: 04-21-2024 End: 56-65-4256Jvwulppdw Result EncounterGeneric External Data ProviderNOMS External Department UnsolicitedStart: 04-21-2024 End: 94-84-5248Sqjmcq outpatient visit 5 minutesCorey Zita DO Work Phone: noms BCP OBComment on above:GA: 0t5wChtvr: 04-21-2024 End: 41-52-2130xdgbspuwovZYVLN FAZIONot AvailableStart: 2024 End: 63-66-9654Lhwquvq encounter procedureGage Morrissey APRN.CNP Work Phone: Reproductive Endocrinology InfertilityComment on above:Progesterone QuestionStart: 2024 End: 81-38-3987Rngjsgy evaluation of patient and reportUs Tech 1 [facility] Work Phone: Reproductive Endocrinology InfertilityComment on above:Supervision of with history of infertility, first trimester Start: 2024 End: 45-28-9287simexjeeqwCgfteu Mindzora APRN.CNP Work Phone: Reproductive Endocrinology InfertilityStart: 03-27-2024 End: 30-25-8354Jeecwrbm flow sheetNoms Sws Ob NurseNOMS SWS OBComment on above: GA: 1z0kNphxj: 03-27-2024 End: 38-00-7406dhcytpsrtoUFILW FAZIONot AvailableStart: 03-17-2024 End: 70-85-1283lrixmefsyeQOHJLI MINDZORAFacility:[facility] Hospitaltart: 03-17-2024 End: 98-38-9994Wlpzifu encounter procedureGage Morrissey APRN.CNP Work Phone: Reproductive Endocrinology InfertilityComment on above:Supervision of with history of infertility, first trimester (Primary Dx)Start: 03-17-2024 End: 73-44-6003Nrgrsqfkmsrm consultation with Dc Morrissey APRN.CNP Work Phone: Reproductive Endocrinology InfertilityStart: 03-16-2024 End: 11-64-5124OnhirgYocasta Orta PA-C Work Phone: Reproductive Endocrinology InfertilityComment on above:Encounter for test, result positive (Primary Dx)Start: 03-15-2024 End: 44-30-3679zmjlvwoingLADHEL MINDZORAFacility:[facility] Hospitaltart: 03-13-2024 End: 13-10-3869quzxukrayiSWDEEN MINDZORAFacility:[facility] Hospitaltart: 03-13-2024 End: 97-24-5249Mrakhespl encounterFede Hairston MD Work Phone: Reproductive Endocrinology InfertilityComment on above:+hpt today/lmp 02/12 skipped treatment this monthStart: 03-10-2024 End: 19-16-1579deabdpnmlfIQJNIGEH RAOFacility:[facility] Hospitaltart: 03-08-2024 End: 42-48-1645Acadwi outpatient new 45 minutesShaun R Roof DO Work Phone: [phone] [place], [place] [address]Comment on above:Otalgia of both ears (Primary Dx); Temporomandibular joint disorder; Chronic allergic rhinitis; Postnasal dripStart: 03-08-2024 End: 14-32-6087vmlabrngarCUTDXCincinnati VA Medical Centertart: 02-28-2024 End: 11-30-6260Qpvrdimma encounterFede Hairston MD Work Phone: Reproductive Endocrinology InfertilityComment on above:gage cueva is not cleared for us should she still have it doStart: 02-23-2024 End: 79-57-8491R-mail encounter from Lynne Morrissey APRN.CNP Work Phone: Reproductive Endocrinology InfertilityStart: 02-23-2024 End: 71-96-5056Tavwtpt encounter Lorena Morrissey APRN.CNP Work Phone: Reproductive Endocrinology InfertilityComment on above:Next stepsStart: 02-23-2024 End: 13-60-9844qnufzrfrfrWGCUXGJI TANTIBHEDHYANGKULFacility:[facility] HospitalStart: 02-23-2024 End: 23-52-3755Ohmisvi evaluation of patient and reportNurse Gayathri [facility] Reproductive Endocrinology InfertilityComment on above:Female infertilityStart: 02-21-2024 End: 65-17-5606Wxofwxkje encounterFede Hairston MD Work Phone: Reproductive Endocrinology InfertilityComment on above:[facility] pharStart: 02-17-2024 End: 30-05-9649ylxvcgupviKSIJSBUX TANTIBHEDHYANGKULFacility:[facility] Hospitaltart: 02-17-2024 End: 78-51-3082Fitmbl outpatient visit 25 minutesFede Hairston MD Work Phone: Reproductive Endocrinology InfertilityComment on above:PCOS (polycystic ovarian syndrome) (Primary Dx)Start: 02-15-2024 End: 53-13-2216Wyqrbkq encounter statusVero Goldsmith DO Work Phone: noms HealthcareStart: 02-15-2024 End: 04-79-4504Simsfirp preventive med est patient 18-39 yrsWimoises Goldsmith DO Work Phone: NOTB SWS OBComment on above:Encounter for gynecological examination without abnormal finding (Primary Dx); Screening for malignant neoplasm of cervix; Desire for ; BV (bacterial vaginosis)Start: 02-15-2024 End: 07-26-2957ulvluqggbqYHUPJXV D BRUNERNot AvailableStart: 02-15-2024 End: 94-27-0464Dismptdv Result EncounterVero Goldsmith DO Work Phone: noms External Department UnsolicitedStart: 02-15-2024 End: 08-09-2871Zozvmgwp Result EncounterVero Goldsmith DO Work Phone: noms External Department UnsolicitedStart: 02-15-2024 End: 98-98-1410Tffgvauhs encounterFede Hairston MD Work Phone: Reproductive Endocrinology InfertilityComment on above:lmp 18 for iui - ovulation trackingStart: 02-12-2024 End: 29-65-4164SlenxpGykjvsdtKaylee Hairston MD Work Phone: Reproductive Endocrinology InfertilityComment on above:Refill RequestStart: 01-26-2024 End: 37-61-8722QnxtveBudxlvYunior Morrissey APRN.JUKEBOX CHECKER Work Phone: Reproductive Endocrinology InfertilityComment on above:Refill RequestStart: 01-24-2024 End: 76-09-6816vsowupjhopJVOXGQ L CESARNot AvailableStart: 01-14-2024 End: 49-10-4866Ccaoqyclh encounterGage Morrissey APRN.JUKEBOX CHECKER Work Phone: Reproductive Endocrinology InfertilityComment on above:iui plan , cd1 01/12Start: 01-14-2024 End: 60-67-7557ltfxycsezqZYMTFELC RAOFacility:[facility]Start: 12-31-2023 End: 25-43-0932wadvhagqlaTUTHMO MINDZORAFacility:[facility] HospitalStart: 12-31-2023 End: 87-63-5994Jgqsiwl encounter procedureGage Morrissey APRN.JUKEBOX CHECKER Work Phone: Reproductive Endocrinology InfertilityComment on above:Encounter for artificial insemination (Primary Dx)Start: 12-21-2023 End: 84-38-1504hsvucsimlyIDAMWJ MINDZORAFacility:[facility] HospitalStart: 12-21-2023 End: 11-16-2794Xqsbsjo evaluation of patient and reportFede Hairston MD Work Phone: Reproductive Endocrinology InfertilityComment on above:Female infertilityStart: 12-13-2023 End: 77-76-9629Wvzrakrtf encounterFede Hairston MD Work Phone: Reproductive Endocrinology InfertilityComment on above:LMP 12/12/23/ set up monitored cycle; Patient UpdateStart: 11-28-2023 End: 62-13-9317laapefwaftQFXRCL ATTARANFacility:[facility] HospitalStart: 11-28-2023 End: 80-77-4167Iyqbmft encounter Riddhi Riojas MD Work Phone: reproductive Endocrinology InfertilityComment on above:Female infertility (Primary Dx)Start: 11-23-2023 End: 50-39-3231wkcceeyugqFkdmqiIasbel Morrissey APRN.JORDAN Work Phone: Reproductive Endocrinology InfertilityStart: 11-23-2023 End: 01-35-4534Fzibktc encounter procedureGage Morrissey APRN.JUKEBOX CHECKER Work Phone: Reproductive Endocrinology InfertilityComment on above:IUI Round 2Start: 11-22-2023 End: 59-62-2303rjirlmhzerOKQZQU MINDZORAFacility:[facility] HospitalStart: 11-22-2023 End: 18-25-5727Wtqrazo encounter procedureGage Morrissey APRN.JUKEBOX CHECKER Work Phone: Reproductive Endocrinology InfertilityComment on above:Procreation management investigation and testing (Primary Dx)Start: 11-22-2023 End: 19-21-4846Fqkzrfpodpzc consultation with Dc Morrissey APRN.JUKEBOX CHECKER Work Phone: Reproductive Endocrinology InfertilityStart: 11-22-2023 End: 30-52-7590xpnmbzwkcjEOQQF REHMERFacility:[facility]tart: 11-22-2023 End: 12-97-1621bkejxaeoveSGSYYG MINDZORAFacility:[facility]Start: 11-22-2023 End: 66-92-2300Jkxdnns evaluation of patient and reportNurse Gayathri [facility] Rep[facility]ductive Endocrinology InfertilityComment on above:Female infertilityStart: 11-18-2023 End: 37-24-2543kkfwzfoqxlHpyiyj Mindzora CROP DUSTER HELPER.[employer]UKE[employer] CHECKER Work Phone: Reproductive Endocrinology InfertilityStart: 11-18-2023 End: 46-45-5147Uwdavwf encounter procedureGage Morrissey APRN.JUKEBOX CHECKER Work Phone: Reproductive Endocrinology InfertilityComment on above:IUI Medication questionStart: 11-12-2023 End: 80-07-9686Ushowwidd encounterSelfReproductive Endocrinology Infertility Comment on above:iui 10/25 , cd 1 tart: 10-26-2023 End: 91-02-2461ogknennfzdGoplozJames Morrissey APRN.JUKEBOX CHECKER Work Phone: Reproductive Endocrinology InfertilityStart: 10-26-2023 End: 24-65-1967Eqgsyre encounter procedureGage Morrissey APRN.JUKEBOX CHECKER Work Phone: Reproductive Endocrinology InfertilityComment on above:Encounter for artificial insemination (Primary Dx)Progesterone Question Start: 10-22-2023 End: 11-77-0440Imgdrqa evaluation of patient and reportNurse Gayathri [facility] Rep[facility] Endocrinology InfertilityComment on above:Female infertilityStart: 10-22-2023 End: 92-93-9531oywczeomucNXTYYO MINDZORAFacility:[facility] Hospitaltart: 70-97-9859Mufoixdwb encounterSelfReproductive Endocrinology InfertilityComment on above:trigger shotStart: 30-22-2950Dvokrrbvl encounterFede Hairston MD Work Phone: Reproductive Endocrinology InfertilityComment on above:Gage lmp today/re us day 11-13 for iuiStart: 09-10-2023 End: 96-55-4182Ruwvcuy encounter procedureGage Morrissey APRN.CNM Work Phone: Reproductive Endocrinology InfertilityComment on above:Screen for sexually transmitted diseases (Primary Dx); Secondary amenorrhea; Female infertilityStart: 09-10-2023 End: 44-24-7144Jeubpkhkicwi consultation with Dc Morrissey APRN.CNM Work Phone: Reproductive Endocrinology InfertilityStart: 65-39-5155Vmzvgpbsr encounterFede Hairston MD Work Phone: Reproductive Endocrinology InfertilityComment on above:Patient QuestionStart: 50-85-4327Cpcivvjad encounterFede Hairston MD Work Phone: Reproductive Endocrinology InfertilityComment on above:lmp 07/23 no cycle since thenStart: 08-19-2023 End: 03-29-8766Crvjsmh encounter procedureFede Hairston MD Work Phone: Reproductive Endocrinology InfertilityComment on above:Irregular menstrual cycle (Primary Dx); PCOS (polycystic ovarian syndrome)Start: 08-19-2023 End: 10-50-6495Qanjenvbevlr consultation with Alicia Hairston MD Work Phone: Reproductive Endocrinology InfertilityStart: 08-17-2023 End: 69-73-8378Yszhmfh encounter procedureRosy Gallagher MD Work Phone: EndocrinologyComment on above:Monoallelic mutation of SDHA gene (Primary Dx); Obesity, Class III, BMI 40-49.9 (morbid obesity) (HCC)Monoallelic mutation of SDHA gene (Primary Dx)Start: 59-93-5967Z-mail encounter from caregiverFede Hairston MD Work Phone: Reproductive Endocrinology InfertilityStart: 64-26-9665Urzdxbv encounter procedureFede Hairston MD Work Phone: Reproductive Endocrinology InfertilityComment on above:Instructions for scheduling SAStart: 86-82-8967jijhacjiprDKUHJKZV TANTIBHEDHYANGKULFacility:[facility] HospitalStart: 07-29-2023 End: 95-42-6279Zemxvykojd hospital visit by physicianL[facility] Radiology GastrointestinalComment on above:Fertility testing [Z31.41] Start: 07-29-2023 End: 19-05-6879Nlijigr evaluation of patient and reportNurse [facility] Rep[facility]ductive Endocrinology InfertilityComment on above:Encounter for fertility testing (Primary Dx); Pre-procedure lab examStart: 07-29-2023 End: 80-89-5669Zgiwgji encounter statusNurse [facility] RejCleveland ClinicStart: 82-75-7039Ebphsddai encounterFina Davalos [facility] Work Phone: Genetic HealthcareComment on above:Nutrition Services Worker - Other (Hereditary Paraganglioma-Pheochromocytoma Syndrome clinic)Start: 00-97-9880Dojxmlyfk encounterMaribvirgilio [facility] Work Phone: Genetic HealthcareComment on above:Results (Genetic) Start: 72-83-1985Wqwwseghm encounterFede Hairston MD Work Phone: Reproductive Endocrinology InfertilityComment on above:refill letrozol/cycle to start in next weekStart: 23-85-7621Qcsmuuunu encounterCleveland Clinic [facility] Work Phone: Genetic HealthcareComment on above:Follow UpStart: 04-21-2023 End: 39-99-9877tufuqeyhozBBGFLDCYPool FERNANDEZULFacility:[facility] Start: 04-21-2023 End: 08-42-1119myrygrejogNeiociav Golm LGC Work Phone: Genetic HealthcareComment on above:Family history of breast cancer (Primary Dx); Family history of prostate cancerStart: 04-21-2023 End: 56-01-5421Fsxwrxuhlthb consultation with aldaApex Medical Centervirgilio Puentes [facility] Work Phone: [facility] CITYStart: 04-07-2023 End: 22-30-8835siuguxqpaaQpyutmqaAmanda Hairston MD Work Phone: Reproductive Endocrinology InfertilityComment on above:PCOS (polycystic ovarian syndrome) (Primary Dx); Fertility testingStart: 04-07-2023 End: 49-13-6039Qnviyhrvlyvg consultation with Alicia Hairston MD Work Phone: [facility] FHCStart: 02-08-2023 End: 77-01-7765sskpsdayqfTmnelhdwAmanda Hairston MD Work Phone: Reproductive Endocrinology InfertilityStart: 02-08-2023 End: 00-54-9754Idzrccq encounter procedureFede Hairston MD Work Phone: [facility] FHCStart: 80-36-5035Lbskjttak encounterJulierut Minesh MUKHERJEE Work Phone: Reproductive Endocrinology InfertilityComment on above:started letrozoleStart: 06-26-2022 End: 57-40-7356ecinwfbxzsBtjion D[place]ond Other [address] Other Start: 42-27-8179Sagmbv outpatient visit 15 minutes Josefina ElizaFPG Urgent Care ClydeStart: 10-94-1151Hpwqkbz encounter procedure LITO VELAZQUEZFacility:H1 Procedures DateProcedureProcedure DetailPerforming ClinicianStart: 51-79-8455Pumxifjp screenDEBORELVIA KARLComment on above:Performed By: #### TSC #### [facility] ([facility]) [address] [place] [address] VIRStart: 76-67-1941EMQ TOTAL PROTEIN 24 HOUR URINECorey Zita DO Work Phone: Start: 91-48-5667IV OB BPP W NON-STRESSCorey Zita DO Work Phone: Start: 04-61-7335GXM CBC WITH AUTO DIFFCorey Zita DO Work Phone: Start: 78-73-4927Yygmd dip stick/tablet rgnt non-auto w/o micrscpCorey Zita DO Work Phone: Start: 33-12-9304ZCOWT GP B CULTURE+RFLXGeneric External Data ProviderStart: 71-39-1482JA OB BPP W NON-STRESSCorey Zita DO Work Phone: Start: 57-80-6353ZXE CBC WITH AUTO DIFFKristina Janiya BOOKING PRIZER Work Phone: Start: 48-60-6921Kgexf dip stick/tablet rgnt non-auto w/o micrscpCorey Zita DO Work Phone: Start: 41-19-9425OL OB BPP W NON-STRESSCorey Zita DO Work Phone: Start: 13-16-8605Htuyz dip stick/tablet rgnt non-auto w/o micrscpCorey Zita DO Work Phone: Start: 53-99-1637SS OB BPP W NON-STRESSGeneric External Data ProviderStart: 91-34-7963Ytdje dip stick/tablet rgnt non-auto w/o micrscpCorey Zita DO Work Phone: Start: 83-31-0878FF OB BPP W NON-STRESSGeneric External Data ProviderStart: 33-63-4536Okbhg dip stick/tablet rgnt non-auto w/o micrscpCorey Zita DO Work Phone: Start: 40-82-0117DLF TOTAL PROTEIN 24 HOUR URINECorey Zita DO Work Phone: Start: 98-56-3542Kpfvq dip stick/tablet rgnt non-auto w/o micrscpKristina Janiya BOOKING PRIZER Work Phone: Start: 38-53-6076VWM UA (CLEAN/CATCH) PRINTED CIRCUIT BOARDS PLASMA ETCHER/MICRO IF IND.Saravanan Zita DO Work Phone: Start: 39-85-2162Gdxei count complete automatedColleen E Lavoy PA-C Work Phone: Start: 66-33-4280Ppvyi albumin quantitativeColleen E Lavoy PA-C Work Phone: Start: 35-31-9760Lunddv-up visitFollow UpERIC ASPEN Start: 43-17-9242Ydendxo quantitative blood xcpt reagent Audrey Cruz MD Work Phone: Start: 44-30-4590CMQ 1H POST 50G LOADNot In System Ref ProvStart: 03-19-8878WJS CBC WITH AUTO DIFFCorey Zita DO Work Phone: Start: 09-44-1412Psgvl dip stick/tablet rgnt non-auto w/o micrscpAmy Jorge PA Work Phone: Start: 49-10-3861ES OB INCOMPLETE ANATOMYGeneric External Data ProviderStart: 31-07-0598Naqqc dip stick/tablet rgnt non-auto w/o micrscpCorey Zita DO Work Phone: Start: 37-82-7879ARYRLSVYL/GC BY PCR PATTI SWABNot In System Ref ProvStart: 97-31-6010ILHAOGXUNQ OFFICENot In System Ref ProvStart: 94-36-8071Dibztocpaoi observation [Identifier] in Cervix by Cyto stainScanning ExternalStart: 33-95-1973XC OB CERVICAL LENGTHGeneric External Data Provider Start: 33-76-2312XBNYBQAQ LAB TESTNot In System Ref ProvStart: 49-02-0001Mwsxl dip stick/tablet rgnt non-auto w/o micrscpCorey Zita DO Work Phone: Start: 56-41-3368Mgnop dip stick/tablet rgnt non-auto w/o micrscpCorey Zita DO Work Phone: Start: 01-61-1055DBD TESTCorey Zita DO Work Phone: Start: 53-30-1111Sikddxof screenScanning External Start: 77-50-3792Vuji scrn 1+ class nonchromoNot In System Ref ProvStart: 04-21-2024 End: 39-77-0413Afkitozxfp glycosylated h1bOactcuou Provider ExternalStart: 36-97-2106Abghxamoa c antibodyNot In System Ref ProvStart: 64-65-2237RQK 1&2 AB/AG SCREEN (P24 AG)Not In System Ref ProvStart: 34-19-7954Agzf ia hepatitis b surface antigenNot In System Ref ProvStart: 72-64-1049IYCKZGEU TOTAL(UNKNOWN SYPHILIS STATUS)Not In System Ref ProvStart: 77-27-4113EEYO AND SCREENNot In System Ref ProvStart: 06-14-1409Nliib dip stick/tablet rgnt non-auto w/o micrscp Saravananmel Ahumada DO Work Phone: Start: 10-32-4754OAPWXSCOQF OFFICENot In System Ref ProvStart: 93-09-3157Od preg uterus after 1st trimest 03/29 gestationLauren Mindzora CROP DUSTER HELPER.[facility] Work Phone: Start: 76-11-6809Orqv scrn 1+ class nonchromoNot In System Ref ProvStart: 06-79-3667Np pelvic nonobstetric image dcmtn limited/f/u Gage Mindzora CROP DUSTER HELPER.JUKEBOX CHECKER Work Phone: Start: 87-77-2527Rja prim src wet mount nfct agt Vero Alyce Rupal DO Work Phone: start: 62-42-9548QBAGQV MULTITEST VAGINALWilliacitlaly Goldsmith DO Work Phone: start: 46-32-6831Ty pelvic nonobstetric image dcmtn limited/f/uLauren Mindzora CROP DUSTER HELPER.JUKEBOX CHECKER Work Phone: Start: 63-37-8261Tw pelvic nonobstetric image dcmtn limited/f/uLauren Mindzora CROP DUSTER HELPER.JUKEBOX CHECKER Work Phone: Start: 45-36-9982Mj pelvic nonobstetric image dcmtn limited/f/uLauren Mindzora CROP DUSTER HELPER.[facility] Work Phone: Start: 44-49-3463Fygxi test visual color cmprsn methsLauren Mindzora CROP DUSTER HELPER.CNM Work Phone: Start: 54-34-9504Yp pelvic nonobstetric real-time image Avinash Hairston MD Work Phone: H/O: sectionS/P C-sectionCoremel Zita DO Work Phone: Plan of Treatment DateCare ActivityDetailAuthorStart: 59-33-6596VKR Vaccine (1 - 1-dose 75+ series)RSV Vaccine (1 - 1-dose 75+ series)[facility] 2045 Zoster Vaccines (1 of 2)Zoster Vaccines (1 of 2)[facility]: 65-71-5576LKfH,Tdap and Td Vaccines (7 - Td or Tdap)DTaP,Tdap and Td Vaccines (7 - Td or Tdap)[facility] SystemStart: 06-26-2032 DTaP/Tdap/Td Vaccines (7 - Td or Tdap)DTaP/Tdap/Td Vaccines (7 - Td or Tdap) [facility]: 56-79-0887Yzckr microalbumin profile DTaP,Tdap,Td Vaccine (7 - Td or Tdap)[facility]: 56-56-7289Qhogbbzor for malignant neoplasm of cervixPap SmearProHocking Valley Community Hospital SystemStart: 55-87-3890Kefim BMI ScreeningAdult BMI ScreeningCleveland Clinic Children's [facility] for [facility] Health SystemStart: 81-23-9547Kuetfrn ScreeningTobacco ScreeningOhioHealth Arthur G.[facility] Cancer Centerca Health SystemStart: 80-85-7880Cnurk BMI ScreeningAdult BMI ScreeningOhioHealth Arthur [facility] Cancer Centerca [facility] SystemStart: 41-33-6499Oxgcgil ScreeningTobacco ScreeningOhioHealth [facility]erca [facility] SystemStart: 43-23-2535Ccnyw BMI ScreeningAdult BMI ScreeningOhioHealth Arthur [facility] Centerca [facility] SystemStart: 99-48-0465Pgsextn ScreeningTobacco ScreeningOhioHealth Arthur [facility] Cancer Centerca Health SystemStart: 80-76-1020Iycyi BMI ScreeningAdult BMI ScreeningOhioHealth Arthur [facility] Cancer Centerca Health SystemStart: 27-21-7107Pyvwerq ScreeningTobacco ScreeningOhioHealth Arthur [facility] Cancer Centerca Health SystemStart: 03-62-4748Ozwaa BMI ScreeningAdult BMI ScreeningOhioHealth Arthur [facility] Centerca [facility] SystemStart: 00-06-6686Nwqdwua ScreeningTobacco ScreeningOhioHealth [facility] Centerca [facility] SystemStart: 31-82-1148Okplo BMI ScreeningAdult BMI ScreeningOhioHealth Arthur [facility] Centerca [facility] SystemStart: 46-85-1318Wthpgyk ScreeningTobacco ScreeningOhioHealth [facility] Centerca [facility] SystemStart: 83-17-4290Kuxde BMI ScreeningAdult BMI ScreeningOhioHealth Arthur [facility] Centerca [facility] SystemStart: 07-24-2025 End: 92-48-5615Yqpgiga encounter procedureNOMS SWS IMStart: 07-18-2025 End: 30-37-7143WAY W Auto Differential panel - BloodCBC and differential Lab Routine Annual physical exam Expected: 07/18/2025 (Approximate), Expires: 0 10/17/2025NOMS HealthcareComment on above:Expected: 07/18/2025 (Approximate), Expires: 10/17/2025Start: 07-18-2025 End: 92-75-4682Sawzidibrfbma metabolic 2000 panel - Serum or PlasmaComprehensive metabolic panel Lab Routine Annual physical exam Expected: 07/18/2025 (Approximate), Expires: 10/17/2025NOMN HealthcareComment on above:Expected: 07/18/2025 (Approximate), Expires: 10/17/2025Start: 07-18-2025 End: 25-52-1122Zashq 1996 panel - Serum or PlasmaLipid panel Lab Routine Annual physical exam Expected: 07/18/2025 (Approximate), Expires: 10/17/2025NOMN HealthcareComment on above:Expected: 07/18/2025 (Approximate), Expires: 10/17/2025Start: 07-18-2025 End: 62-93-7970Bwihqoxwuys [Units/volume] in Serum or PlasmaTSH Lab Routine Annual physical exam Expected: 07/18/2025 (Approximate), Expires: 10/17/2025NOMN HealthcareComment on above:Expected: 07/18/2025 (Approximate), Expires: 10/17/2025Start: 05-30-2025 End: 21-39-0400Yecivdb encounter kbiescijp41/04/2026 11:00 AM EST Procedure Visit NOMTimothy LAFLERU [address] [place], [id number] Saravanan Ahumada DO [address] [place] [address] HEENA ALONSOGYNStart: 12-11-2024 End: 22-06-4979ewltvugeix55/15/2025 8:50 AM EDT Visit [facility] [address] [place], [id number] Saravanan Ahumada DO [address] [place] [address] NOMS Shannon OBGYNStart: 03-46-8151Elzslleck [facility] HealthcareStart: 11-10-2024 End: 76-29-1589Kkejxxp encounter xiknoammv16/15/2025 8:15 AM EDT Office Visit [facility] [address] [place] [phone] Carolyne Gomes MD [address] [place] [phone] [facility] HospitalStart: 10-23-2024 End: 88-56-9876Ldzkxpl aminotransferase [Enzymatic activity/volume] in Serum or PlasmaALT Lab Routine 36 weeks gestation of ([facility]) induced hypertension, antepartum ([facility]) Expected: 10/23/2024 (Approximate), Expires: 10/23/2025[facility] HealthcareComment on above:Expected: 10/23/2024 (Approximate), Expires: 10/23/2025Start: 10-23-2024 End: 81-60-4926Yavaybsay aminotransferase [Enzymatic activity/volume] in Serum or PlasmaAST Lab Routine 36 weeks gestation of ([facility]) induced hypertension, antepartum ([facility]) Expected: 10/23/2024 (Approximate), Expires: 10/23/2025[facility] HealthcareComment on above:Expected: 10/23/2024 (Approximate), Expires: 10/23/2025Start: 10-23-2024 End: 05-58-1539FER W Auto Differential panel - BloodCBC and differential Lab Routine 36 weeks gestation of ([facility]) induced hyperte nsion, antepartum ([facility]-H[facility]) Expected: 10/23/2024 (Approximate), Expires: 10/23/2025[facility] HealthcareComment on above:Expected: 10/23/2024 (Approximate), Expires: 10/23/2025Start: 10-23-2024 End: 25-05-0946Jvpzfzorkk [Mass/volume] in Serum or PlasmaCreatinine Lab Routine 36 weeks gestation of ([facility]) induced hypertension, ant epartum ([facility]) Expected: 10/23/2024 (Approximate), Expires: 10/23/2025[facility] HealthcareComment on above:Expected: 10/23/2024 (Approximate), Expires: 10/23/2025Start: 10-23-2024 End: 04-54-8955PTAKCWV, GROUP B STREP WITH SUSCEPTIBLITYCULTURE, GROUP B STREP WITH SUSCEPTIBLITY Lab Routine Third trimester ([facility]) Expected: 10/23/2024, Expires: 10/23/2025[facility] Healthcare Work Phone: comment on above:Expected: 10/23/2024, Expires: 10/23/2025Start: 10-23-2024 End: 05-08-1666Yvzyaxg dehydrogenase [Enzymatic activity/volume] in Serum or Plasma by Lactate to pyruvate reactionLactate dehydrogenase Lab Routine 36 weeks gestation of ([facility]) induced hypertension, antepartum ([facility]) Expected: 10/23/2024, Expires: 10/23/2025[facility] HealthcareComment on above:Expected: 10/23/2024, Expires: 10/23/2025Start: 10-23-2024 End: 82-74-1997Ngzmaiy, urine, 24 hourProtein, urine, 24 hour Lab Routine 36 weeks gestation of ([facility]) induced hypertension, antepartum ([facility]) Expected: 10/23/2024 (Approximate), Expires: 10/23/2025[facility] HealthcareComment on above:Expected: 10/23/2024 (Approximate), Expires: 10/23/2025Start: 10-23-2024 End: 56-79-7172Mi and pttPt and ptt Lab Routine 36 weeks gestation of ([facility]) induced hypertension, antepartum ([facility]) Expected: 10/23/2024, Expires: 10/23/2025N[facility] HealthcareComment on above:Expected: 10/23/2024, Expires: 10/23/2025Start: 10-23-2024 End: 95-62-0606Aauqp [Mass/volume] in Serum or PlasmaUric acid Lab Routine 36 weeks gestation of ([facility]) induced hypertension, ante ([facility]) Expected: 10/23/2024 (Approximate), Expires: 10/23/2025N[facility] HealthcareComment on above:Expected: 10/23/2024 (Approximate), Expires: 10/23/2025Start: 10-23-2024 End: 82-45-5655Nfwh nitrogen [Mass/volume] in Serum or PlasmaBUN Lab Routine 36 weeks gestation of ([facility]) induced hypertension, antepartum ([facility]) Expected: 10/23/2024, Expires: 10/23/2025[facility] Healthcare Comment on above:Expected: 10/23/2024, Expires: 10/23/2025Start: 10-23-2024 End: 16-72-1945Jotvwgw encounter vqmxxribq01/28/2025 1:30 PM EDT Routine [facility] [address] [place] [phone] Saravanan Ahumada [address] [place] [address] [facility] BCP OBStart: 10-23-2024 End: 16-48-9859Qxpxxtw encounter oofcpjhwp60/28/2025 8:30 AM EDT Office Visit Maternal- Medicine at [facility] [address] [place] [phone] Ran Corona MD [address], [address] [place] [address] [facility] 10-16-2024 End: 26-26-4572Yszpbje aminotransferase [Enzymatic activity/volume] in Serum or PlasmaALT Lab Routine induced hypertension, antepartum ([facility]) Expected: 10/16/2024 (Approximate), Expires: 10/16/2025[facility] HealthcareComment on above:Expected: 10/16/2024 (Approximate), Expires: 10/16/2025Start: 10-16-2024 End: 88-94-9912Tgmjtqrqw aminotransferase [Enzymatic activity/volume] in Serum or PlasmaAST Lab Routine induced hypertension, antepartum ([facility]) Expected: 10/16/2024 (Approximate), Expires: 10/16/2025[facility] HealthcareComment on above:Expected: 10/16/2024 (Approximate), Expires: 10/16/2025Start: 10-16-2024 End: 65-76-9777ZKL W Auto Differential panel - BloodCBC and differential Lab Routine induced hypertension, antepartum ([facility]) Expected: 09/27 (Approximate), Expires: 10/16/2025[facility] HealthcareComment on above: Expected: 10/16/2024 (Approximate), Expires: 10/16/2025Start: 10-16-2024 End: 18-62-0351Jzctdxmgje [Mass/volume] in Serum or PlasmaCreatinine Lab Routine induced hypertension, antepartum ([facility]) Expected: 10/16/2024 (Ap proximate), Expires: 10/16/2025[facility] Work Phone: comment on above:Expected: 10/16/2024 (Approximate), Expires: 10/16/2025Start: 10-16-2024 End: 36-73-5093Smsotbj dehydrogenase [Enzymatic activity/volume] in Serum or Plasma by Lactate to pyruvate reactionLactate dehydrogenase Lab Routine induced hypertension, antepartum ([facility]) Expected: 10/16/2024, Expires: 10/16/2025[facility] HealthcareComment on above:Expected: 10/16/2024, Expires: 10/16/2025Start: 10-16-2024 End: 59-67-2844Op and pttPt and ptt Lab Routine induced hypertension, antepartum ([facility]) Expected: 10/16/2024, Expires: 10/16/2025[facility] Comment on above:Expected: 10/16/2024, Expires: 10/16/2025Start: 10-16-2024 End: 25-83-2055Gvdxt [Mass/volume] in Serum or PlasmaUric acid Lab Routine induced hypertension, antepartum ([facility]-HCC) Expected: 10/16/2024 (Juanita roximate), Expires: 10/16/2025[facility] HealthcareComment on above:Expected: 10/16/2024 (Approximate), Expires: 10/16/2025Start: 10-16-2024 End: 18-60-9561Birq nitrogen [Mass/volume] in Serum or PlasmaBUN Lab Routine induced hypertension, antepartum ([facility]) Expected: 10/16/2024, Expires:10/16/2025[facility] HealthcareComment on above:Expected: 10/16/2024, Expires: 10/16/2025Start: 10-16-2024 End: 95-21-7349Robwxcg encounter procedureMaternal- Medicine at [facility] HospitalComment on above:ArrivedStart: 10-11-2024 End: 35-27-6775Qzexesn encounter tifbrregk10/16/2025 2:00 PM EDT Office Visit Maternal- Medicine at [facility] [address] [place] [phone] Siria Rebolledo, CROP DUSTER HELPER-JUKEBOX CHECKER [address] [place] [address] [facility] 10-09-2024 End: 01-68-8325Cqeqoyk encounter okuqioxqr53/14/2025 9:00 AM EDT Routine [facility] [address] [phone] Saravanan Ahumada DO [address] [place] [address] [facility] BCP OBStart: 10-02-2024 End: 03-04-1272Iaqllys encounter vyqgizihr85/07/2025 11:00 AM EDT Routine [facility] OB [address] [place] [phone] Saravanan Ahumada, DO [address] [place] [address] [facility] BCP OBStart: 10-02-2024 End: 90-60-8171Zzsxuzqtlvjf / ancillary services hevewzoaiq86/07/2025 10:30 AM EDT Ancillary Procedure [facility] OB [address] [place], [place] [phone] [facility] BCP OBStart: 09-25-2024 End: 80-59-8814Fmbnrmy encounter tzwtyfwvm42/30/2025 1:00 PM EDT Routine [facility] OB [address] [place] [phone] Saravanan Ahumada, DO [address] [place] [address] ArrivedNOMOUNTAIN COMMUNITY MED[facility] SERVICES OBComment on above: ArrivedStart: 09-20-2024 End: 37-82-5835Wvpsxouplapt consultation with ketppfx1409/20/2024 11:00 AM EDT Telemedicine Maternal- Medicine at [facility] [address] [place] [phone] Siria Rebolledo, CROP DUSTER HELPER-JUKEBOX CHECKER [address] [place] [address] [facility]: 09-13-2024 End: 17-25-5888BJ biophysical profile w non stress testUS biophysical profile w non stress test Imaging Routine History of gestational diabetes Expected: 09/13/2024 (Approximate), Expires: 03/15/2025[facility] Work Phone: comment on above:Expected: 09/13/2024 (Approximate), Expires: 03/15/2025Start: 09-13-2024 End: 35-83-7988WI for pregnancyUS OB follow up transabdominal approach Imaging Routine History of gestational diabetes Expected: 09/13/2024, Expires: 01/13/2025NOMS HealthcareComment on above:Expected: 09/13/2024, Expires: 01/13/2025Start: 09-13-2024 End: 38-62-1551Hichqwt encounter iecrgqxpr79/18/2025 11:30 AM EDT Routine [facility] OB [address] [place] [address] Saravanan Ahumada, [address] [place] [address] NOM[facility] BCP OBStart: 09-11-2024 End: 11-58-7217ZGGTWAYDDNRWI, FREE PLASMAMETANEPHRINES, FREE PLASMA Lab Routine Monoallelic mutation of SDHA gene Expected: 09/11/2024, Expires: 12/11/2024 [facility] Work Phone: Comment on above:Expected: 09/11/2024, Expires: 12/11/2024Start: 09-11-2024 End: 57-38-7385ffidnlnggj11/16/2025 9:00 AM EDT [facility] [address] [place] [address] [id number] Rosy Gallagher MD [address] [place] [address] Monoallelic mutation of SDHA geneEndocrinologyComment on above:Monoallelic mutation of SDHA geneStart: 09-06-2024 End: 01-83-4998Zahgvsglkuvg / ancillary services tznbazvsqb93/11/2025 1:30 PM EDT Ancillary Procedure [facility] BCP OB [address] [place] [address] [facility] BCP OBStart: 09-05-2024 End: 16-51-7789bpdwvlycwt39/10/2025 2:00 PM EDT Results Only Main [place] [address] [address] [place] [address] [facility] 1 Draw StationComment on above:SDHAStart: 09-05-2024 End: 76-42-4107Cxhpctn encounter mwvybmkmk93/10/2025 1:45 PM EDT Office Visit Otolarynogology [address] [place] [address] Franklin Laboy MD [address] [place] [address] Monoallelic mutation of SDHA geneOtolarynogologyComment on above: Monoallelic mutation of SDHA geneStart: 08-31-2024 End: 41-91-1813toxydkngzt55/05/2025 1:30 PM EDT Support Visit Maternal- Medicine at [place] [address] [place] [address] Cristiana Zuñiga RN [address] [address] Nereyda Zheng, MUNIRA [address] [place] [address] [facility] 08-30-2024 End: 44-32-5193Nogsvfb encounter llxufpzjl66/04/2025 11:20 AM EDT Routine [facility] BCP OB [address] [place] [address] Saravanan Ahumada DO [address] [place] [address] [facility] BCP OBStart: 08-16-2024 End: 16-88-0585Hopjimm encounter procedureNOMS BCP OBComment on above:Arrived Start: 07-18-2024 End: 13-45-0881Ekghadc event monitorCardiac event monitor Cardiac Services Routine Palpitations Expected: 07/18/2024 (Approximate), Expires: 10/17/2024[facility] HealthcareComment on above:Expected: 07/18/2024 (Approximate), Expires: 10/17/2024Start: 07-18-2024 End: 80-91-7888GHN W Auto Differential panel - BloodCBC auto differential Lab Routine Annual physical exam 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 Polycystic ovaries Expected: 07/18/2024 (Approximate), Expires: 10/17/2024[facility] HealthcareComment on above:Expected: 07/18/2024 (Approximate), Expires: 10/17/2024Start: 07-18-2024 End: 45-14-3704Qtujrxbbbbzoh metabolic 2000 panel - Serum or PlasmaComprehensive metabolic panel Lab Routine Annual physical exam 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 Polycystic ovaries Expected: 07/18/2024 (Approximate), Expires: 10/17/2024[facility] Work Phone: Comment on above:Expected: 07/18/2024 (Approximate), Expires: 10/17/2024Start: 07-18-2024 End: 97-52-5559Qgqgp 1996 panel - Serum or PlasmaLipid panel Lab Routine Annual physical exam 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 Polycystic ovaries Expected: 07/18/2024 (Approximate), Expires: 10/17/2024[facility] Healthcare Comment on above:Expected: 07/18/2024 (Approximate), Expires: 10/17/2024Start: 07-18-2024 End: 27-30-2647Kgldljsmsng [Units/volume] in Serum or PlasmaTSH Lab Routine Annual physical exam 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 Polycysticovaries Expected: 07/18/2024 (Approximate), Expires: 10/17/2024[facility] HealthcareComment on above:Expected: 07/18/2024 (Approximate), Expires: 10/17/2024Start: 07-18-2024 End: 43-62-2824ZC Heart TransthoracicTransthoracic echo (TTE) complete Echocardiography Routine Palpitations Murmur Expected: 07/18/2024(Approximate), Expires: 10/17/2024[facility] HealthcareComment on above:Expected: 07/18/2024 (Approximate), Expires: 10/17/2024Start: 07-18-2024 End: 81-58-4232Iqwvifi encounter kyvkpqyky85/22/2025 9:15 AM EDT Office Visit [facility] [address] [place] [phone] Lito Velazquez MD [address] [place] [address] [facility] IMStart: 07-17-2024 End: 17-63-7367EAB panel - Blood by Automated countCBC Lab Routine Diabetes mellitus screening Expected: 07/17/2024 (Approximate), Expires: 07/17/2025[facility] Work Phone: comment on above:Expected: 07/17/2024 (Approximate), Expires: 07/17/2025Start: 07-17-2024 End: 92-44-6856Sucivmxhgco of glucose 1 hour after glucose challenge for glucose tolerance testGlucose tolerance, 1 hour Lab Routine Diabetes mellitus screening Expected: 07/17/2024 (Approximate), Expires: 07/17/2025[facility] HealthcareComment on above:Expected: 07/17/2024 (Approximate), Expires: 07/17/2025Start: 06-19-2024 End: 24-06-4808Umctaat encounter procedureNOMN BCP OBStart: 05-23-2024 End: 09-76-9382Ubxjbao encounter mneoymyiu66/25/2025 4:00 PM EST Office Visit [facility] [address] [place] [phone] Marjorie Ferrer, DPM [address] [place] [address] [facility] PODIATRYStart: 05-22-2024 End: 64-75-7006Tuurw fetoprotein, maternalAlpha fetoprotein, maternal Lab Routine Second trimester 14 weeks gestation of Expected: 05/22/2024 (Approximate), Expires: 07/20/2024[facility] Work Phone: comment on above:Expected: 05/22/2024 (Approximate), Expires: 07/20/2024Start: 05-22-2024 End: 04-25-6011JJ Pelvis transvaginalUS OB transvaginal Imaging Routine Spotting in Expected: 05/22/2024, Expires: 05/22/2025[facility] HealthcareComment on above:Expected: 05/22/2024, Expires: 05/22/2025Start: 05-22-2024 End: 39-06-6012Nqkijqe encounter procedureNOMS BCP OBComment on above:Arrived Start: 05-01-2024 End: 49-28-8993luystvnvcq49/03/2025 3:15 PM EST Initial [facility] ELLY OB [address] [address] Manju Alford DO [address] [address] [facility] NB OBStart: 04-21-2024 End: 56-30-9378HZO/RhABO/Rh Lab Routine Missed menses , unspecified gestational age Expected: 04/21/2024 (Approximate), Expires: 04/21/2025[facility] HealthcareComment on above:Expected: 04/21/2024 (Approximate), Expires: 04/21/2025Start: 04-21-2024 End: 50-81-1987Pmklb type and Indirect antibody screen panel - BloodType and screen Lab Routine Missed menses , unspecified gestational age Expected: 04/21/2024 (Approximate), Expires: 04/21/2025[facility] HealthcareComment on above:Expected: 04/21/2024 (Approximate), Expires: 04/21/2025Start: 04-21-2024 End: 46-33-6731Telek of abuse panel - Urine by Screen methodRapid drug screen, urine Lab Routine , unspecified gestational age Encounter for supervision of normal first in first trimester Expected: 04/21/2024 (Approximate), Expires: 04/21/2025[facility] HealthcareComment on above:Expected: 04/21/2024 (Approximate), Expires: 04/21/2025Start: 04-20-2024 End: 90-60-6210QL Pelvis transvaginalUS OB transvaginal Imaging Routine Missed menses Expected: 04/20/2024, Expires: 04/20/2025[facility] Work Phone: comment on above:Expected: 04/20/2024, Expires: 04/20/2025Start: 04-12-2024 End: 18-28-8553Vjhpvaqojdkl / ancillary services bpuzzxahsf21/15/2025 4:00 PM EST Ancillary Procedure [facility] NB OB [address] [id number] [facility] NB OBStart: 2024 End: 35-19-9669Syttqjh evaluation of patient and wctxwu4504/03/2024 11:10 AM EST Nurse Visit Reproductive Endocrinology Infertility [address] [place] [address] ob scanReproductive Endocrinology InfertilityComment on above:ob scanStart: 03-30-2024 End: 29-60-5576Tphbeob encounter oldyprnzu57/02/2025 12:40 PM EST [facility] [address] [place] [address] Cira Garcia V, MD [address] [place] [address] Weight managementEndocrinologyComment on above:Weight managementStart: 03-27-2024 End: 28-79-9017Iusvkzlr identified in Urine by CultureUrine culture Microbiology Routine Encounter for supervision of normal first in first trimester Expected: 03/27/2024 (Approximate), Expires: 03/27/2025[facility] HealthcareComment on above:Expected: 03/27/2024 (Approximate), Expires: 03/27/2025Start: 03-27-2024 End: 14-26-9676Dtpiw type and Indirect antibody screen panel - BloodType and screen Lab Routine Encounter for supervision of normal first in first trimester Expected: 03/27/2024 (Approximate), Expires: 03/27/2025[facility] Healthcare Comment on above:Expected: 03/27/2024 (Approximate), Expires: 03/27/2025Start: 03-27-2024 End: 90-29-1996HUM W Auto Differential panel - BloodCBC and differential Lab Routine Encounter for supervision of normal first in first trimester Expected: 03/27/2024 (Approximate), Expires: 03/27/2025[facility] HealthcareComment on above:Expected: 03/27/2024 (Approximate), Expires: 03/27/2025Start: 03-27-2024 End: 91-13-7002OAZE SCREEN 17 W/CONF, URDRUG SCREEN 17 W/CONF, UR Lab Routine Encounter for supervision of normal first in first trimester Encounter for drug screening Expected: 03/27/2024 (Approximate), Expires: 03/27/2025[facility] HealthcareComment on above:Expected: 03/27/2024 (Approximate), Expires: 03/27/2025Start: 03-27-2024 End: 76-06-1476Czgeczxci B virus surface Ag [Presence] in Serum or Plasma by ImmunoassayHepatitis B surface antigen Lab Routine Encounter for supervision of normal first in first trimester Expected: 03/27/2024 (Approximate), Expires: 03/27/2025[facility] HealthcareComment on above:Expected: 03/27/2024 (Approximate), Expires: 03/27/2025Start: 03-27-2024 End: 35-96-1745Syavxhrlg C virus Ab [Presence] in Serum or Plasma by Immunoassay Hepatitis C antibody Lab Routine Encounter for supervision of normal first in first trimester Expected: 03/27/2024 (Approximate), Expires: 03/27/2025[facility] HealthcareComment on above:Expected: 03/27/2024 (Approximate), Expires: 03/27/2025Start: 03-27-2024 End: 63-50-9944XKW-1/HIV-2 antigen/antibody combination immunoassayHIV-1 and HIV-2 antibodies Lab Routine Encounter for supervision of normal first in firsttrimester Expected: 03/27/2024 (Approximate), Expires: 03/27/2025[facility] HealthcareComment on above:Expected: 03/27/2024 (Approximate), Expires: 03/27/2025Start: 03-27-2024 End: 34-09-1623Ddvekg Ab [Presence] in Serum by RPRRPR Lab Routine Encounter for supervision of normal first in first trimester Expected: 03/27/2024 (Approximate), Expires: 03/27/2025[facility] HealthcareComment on above:Expected: 03/27/2024 (Approximate), Expires: 03/27/2025Start: 03-27-2024 End: 90-78-6019Fyxgxmy antibody, IgGRubella antibody, IgG Lab Routine Encounter for supervision of normal first in first trimester Expected: 03/27/2024 (Approximate), Expires: 03/27/2025[facility] HealthcareComment on above: Expected: 03/27/2024 (Approximate), Expires: 03/27/2025Start: 03-27-2024 End: 51-50-7645Nssdaxjpoj complete panel - UrineUrinalysis with microscopic Lab Routine Encounter for supervision of normal first in first trimester Expected: 03/27/2024 (Approximate), Expires: 03/27/2025[facility] Work Phone: comment on above:Expected: 03/27/2024 (Approximate), Expires: 03/27/2025Start: 03-17-2024 End: 99-07-2008OCSPDNHDT ULTRASOUND WHIOBSTETRIC ULTRASOUND WHI Anc Imaging Routine Supervision of with history of infertility, first trimester Expected: 03/17/2024, Expires: 03/17/2025[facility] Work Phone: Comment on above:Expected: 03/17/2024, Expires: 03/17/2025Start: 03-17-2024 End: 42-15-5294Lqzbqoq encounter rcjzfyzmk75/20/2024 2:00 PM EST [facility] Reproductive Endocrinology Infertility [address] [place] [address] Gage Morrissey APRN.JUKEBOX CHECKER [address] [place] [address] new pregReproductive Endocrinology InfertilityComment on above:new pregStart: 03-16-2024 End: 75-16-8400Rcqasiogzlpqtvyjmy.beta subunit [Units/volume] in Serum or Plasma HCG QUANTITATIVE Lab Routine Encounter for test, result positive Expected: 03/16/2024, Expires: 06/15/2024[facility] Work Phone: Comment on above:Expected: 03/16/2024, Expires: 06/15/2024Start: 03-15-2024 End: 84-65-8955Gmuaofm encounter fvvemybhq44/18/2024 3:45 PM EST Office Visit [facility] [address] [place] [address] labNortC.S[facility] LaboratoryComment on above:labStart: 02-28-2024 End: 79-55-8312Nglurcikkasj [Mass/volume] in Serum or PlasmaPROGESTERONE Lab Routine Female infertility Expected: 02/28/2024, Expires: 05/29/2024[facility] Work Phone: Comment on above:Expected: 02/28/2024, Expires: 05/29/2024Start: 02-26-2024 End: 37-86-8145Gwhwets encounter eztygrxrv26/30/2024 6:00 PM EST Office Visit Rep[facility]ductive Endocrinology Infertility [address] [place] [address] follicle us -benefit checkReproductive Endocrinology Infertility Comment on above:follicle us -benefit checkStart: 02-23-2024 End: 93-89-1094Islxjmr evaluation of patient and rqozgo2502/23/2024 7:00 AM EST Nurse Visit [facility]ductive Endocrinology Infertility [address] [place] [address] Nurse Gayathri Hernandes [facility] [address] [place] [address] midcycleReproductive Endocrinology InfertilityComment on above: midcycleStart: 02-17-2024 End: 41-86-1875Othuwv-up zgvmozouh52/21/2024 9:30 AM [facility] Reproductive Endocrinology Infertility [address] [place] [address] Fede Hairston MD [address] [place] [address] follow upReproductive Endocrinology InfertilityComment on above:follow upStart: 02-15-2024 End: 68-91-0095VFWRBXZCQR US WHIFOLLICULAR US WHI Anc Imaging Routine Female infertility Expected: 02/15/2024, Expires: 02/14/2025[facility] Work Phone: Comment on above:Expected: 02/15/2024, Expires: 02/14/2025Start: 01-19-2024 End: 17-20-3944Cgximsu encounter yodggccma29/23/2024 6:00 PM EDT Office Visit Reproductive Endocrinology Infertility [address] [place] [address] iui-benefit checkReproductive Endocrinology InfertilityComment on above:iui-benefit checkStart: 12-13-2023 End: 21-97-9466HQEBQAKHES US WHIFOLLICULAR US WHI Anc Imaging Routine Female infertility Expected: 12/13/2023, Expires: 12/12/2024[facility] Work Phone: Comment on above:Expected: 12/13/2023, Expires: 12/12/2024Start: 43-93-9652Ysnqg-19 Vaccine ()Covid-19 Vaccine ( season)[facility]: 34-08-5502Gwmer-19 Vaccine ()Covid-19 Vaccine ( season)[facility]: 35-82-2407Jtulhhkag vaccinationDayton Children's Hospitaltart: 11-22-2023 End: 74-78-8128Uacfsbc evaluation of patient and jtvbyp9411/22/2023 7:15 AM EDT Nurse Visit Reproductive Endocrinology Infertility [address] [place] [address] Greta, Nurse Gayathri [facility] [address] [place] [address] Follicular scanReproductive Endocrinology InfertilityComment on above: Follicular scanStart: 11-18-2023 End: 52-83-6344Njlrqbz encounter rseabjblg71/22/2024 6:00 PM EDT Office Visit Reproductive Endocrinology Infertility [address] [place] [address] midcycle-benefit checkReproductive Endocrinology InfertilityComment on above:midcycle-benefit checkStart: 11-15-2023 End: 33-35-6021FPVKBPOYBC US WHIFOLLICULAR US WHI Anc Imaging Routine Female infertility Expected: 11/15/2023, Expires: 11/14/2024[facility] Work Phone: Comment on above:Expected: 11/15/2023, Expires: 11/14/2024Start: 11-04-2023 End: 76-14-1295Smpcmfh encounter procedureEndocrinologyComment on above:MED WT MGMTStart: 10-22-2023 End: 43-07-8309Unugcgm evaluation of patient and qxguye7310/22/2023 7:00 AM EDT Nurse Visit Reproductive Endocrinology Infertility [address] [place] [address] Greta Nurse Gayathri [facility] [address] [place] [address] midcycleReproductive Endocrinology InfertilityComment on above: midcycleStart: 09-19-2023 End: 72-91-6587Wiyirbzotkrc [Mass/volume] in Serum or PlasmaPROGESTERONE Lab Routine Irregular menstrual cycle Expected: 09/19/2023 (Approximate), Expires: 12/19/2023[facility] Work Phone: Comment on above:Expected: 09/19/2023 (Approximate), Expires: 12/19/2023Start: 09-10-2023 End: 40-13-5951Lcrviyc encounter flzhofeij75/14/2024 3:00 PM EDT [facility] Reproductive Endocrinology Infertility [address] [place] [address] Gage Morrissey APRN.CNM [address] [place] [address] IUI teachReproductive Endocrinology InfertilityComment on above:IUI teachStart: 09-10-2023 End: 51-94-5761Njhqtagfj trachomatis+Neisseria gonorrhoeae DNA [Presence] in Unspecified specimen by JANESSA with probe detectionGONORRHEA/CHLAMYDIA NAAT Lab Routine Screen for sexually transmitted diseases Expected: 09/10/2023 ( Approximate), Expires: 12/10/2023[facility]Comment [facility]:Expected: 09/10/2023 (Approximate), Expires: 12/10/2023Start: 09-10-2023 End: 20-01-9528Xwinjwpccengzkprtq.beta subunit [Units/volume] in Serum or Plasma HCG QUANTITATIVE Lab Routine Secondary amenorrhea Expected: 09/10/2023, Expires: 12/10/2023[facility] ClinicComment on above:Expected: 09/10/2023, Expires: 12/10/2023Start: 09-10-2023 End: 69-69-4347JIIZQSZPGD US WHIFOLLICULAR US WHI Anc Imaging Routine Female infertility Expected: 09/10/2023, Expires: 5[facility] ClinicComment on above:Expected: 09/10/2023, Expires: 09/09/2024Start: 09-10-2023 End: 18-85-6093Omhsbefay B virus surface Ag [Presence] in SerumHEPATITIS B SURFACE ANTIGEN Lab Routine Screen for sexually transmitted diseases Expected: 09/10/2023, Expires: 12/10/2023[facility] ClinicComment on above:Expected: 09/10/2023, Expires: 12/10/2023Start: 09-10-2023 End: 05-76-8347Lulxidrqt C virus Ab [Presence] in SerumHEPATITIS C ANTIBODY IA WITH CONFIRMATION Lab Routine Screen for sexually transmitted diseases Expected: 09/10/2023, Expires: 12/10/2023[facility]:Expected: 09/10/2023, Expires: 12/10/2023Start: 09-10-2023 End: 99-25-5152KKH 1+2 Ab [Presence] in Serum or Plasma by ImmunoassayHIV 1/2 COMBO WITH REFLEX TO DIFFERENTIATION Lab Routine Screen for sexually transmitted diseases Expected: 09/10/2023, Expires: 12/10/2023[facility] HospitalComment on above:Expected: 09/10/2023, Expires: 12/10/2023Start: 09-10-2023 End: 97-29-6762Igxayfctwbzo [Mass/volume] in Serum or PlasmaPROGESTERONE Lab Routine Secondary amenorrhea Expected: 09/10/2023, Expires: 12/10/2023[facility] Work Phone: Comment on above:Expected: 09/10/2023, Expires: 12/10/2023Start: 09-10-2023 End: 56-67-7497JUJAGXVC TOTAL W/REFLEXSYPHILIS TOTAL W/REFLEX Lab Routine Screen for sexually transmitted diseases Expected: 09/10/2023, Expires: 12/10/2023 [facility]:Expected: 09/10/2023, Expires: 12/10/2023Start: 09-02-2023 End: 92-30-7912Djtwldyngkafxynduf.beta subunit [Units/volume] in Serum or Plasma [facility]onComment on above:Expected: 09/02/2023, Expires: 12/02/2023Start: 09-02-2023 End: 30-33-4827Nshlcpsljdcy [Mass/volume] in Serum or PlasmaW[facility]umedicine [facility] Work Phone: Comment on above:Expected: 09/02/2023, Expires: 12/02/2023Start: 08-19-2023 End: 16-25-2281Qrcnhh-up sfhlealgj36/ 10:30 AM EDT [facility] Infertility [address] [place] [address] Fede Hairston MD [address] [place] [address] follow up / rescheduled ok per KF Reproductive Endocrinology InfertilityComment on above:follow up / rescheduled ok per KFStart: 08-17-2023 End: 48-28-7582Haghswm encounter procedureEndocrinologyComment on above:SDHA- related hereditary paragangliomaStart: 06-16-2023 End: 80-43-9712BZJYVGSUZMBTC, FREE PLASMAMETANEPHRINES, FREE PLASMA Lab Routine Monoallelic mutation of SDHA gene Expected: 06/16/2023, Expires: 09/15/2023 [facility] Work Phone: Comment on above:Expected: 06/16/2023, Expires: 09/15/2023Start: 07-22-1845Seopmgtqo vaccinationVaricella Vaccines (2 of 2 - 2- dose childhood series)[facility]: 05-17-2023 End: 02-21-4442LWBX SEND OUT TST 1MISC SEND OUT TST 1 Lab Routine Family history of cancer Family history of gene mutation Expected: 05/17/2023, Expires: 08/16/2023[facility] Work Phone: comment on above:Expected: 05/17/2023, Expires: 08/16/2023Start: 04-17-2023 End: 31-14-9595Wigdawnhfnnh [Mass/volume] in Serum or PlasmaPROGESTERONE BLD Lab Routine PCOS (polycystic ovarian syndrome) Expected: 04/17/2023 (Approximate), Expires: 07/17/2023[facility] Work Phone: Comment on above:Expected: 04/17/2023 (Approximate), Expires: 07/17/2023Start: 03-10-0470Wpqmlwipel Health ScreeningBehavioral Health ScreeningDayton Children's Hospitaltart: 33-22-9321Fidpjhpfjf AssessmentDepression AssessmentDayton Children's Hospitaltart: 02-04-2023 End: 20-19-9583Zxvsbwfiwzmy [Mass/volume] in Serum or PlasmaPROGESTERONE BLD Lab Routine Encounter for fertility testing Expected: 02/04/2023, Expires: 05/06/19 24[facility] Work Phone: Comment on above:Expected: 02/04/2023, Expires: 05/06/2023Start: 28-49-9639Uuqtn-19 Vaccine ( season)Covid-19 Vaccine ()[facility]: 85-53-7560Xabniergu vaccination Influenza Vaccine (#1)[facility]: 95-41-6490Pgcnszfrcy Assessment Depression AssessmentDayton Children's Hospitaltart: 14-39-9052Iob TestingPap Testing [facility]: 23-61-0901Ztnqvcuhs for malignant neoplasm of cervix [facility]: 57-19-8782Ehzrdfykx A Vaccines (1 of 2 - Risk 2-dose series)Hepatitis A Vaccines (1 of 2 - Risk 2-dose series)[facility]: 68-05-3696Ujlrx microalbumin profileDTaP,Tdap,Td Vaccine (1 - Tdap)[facility]: 52-22-0111Sojyx BMI Follow Up PlanAdult BMI Follow Up PlanFormerly [facility] Healthtart: 06-59-0463Xyrmj BMI ScreeningAdult BMI ScreeningFormerly [facility] Healthtart: 04-67-7332Zkffpzg ScreeningAnxiety ScreeningDayton Children's Hospitaltart: 01-06-8392Rdcchdqcrp ScreeningDepression ScreeningDayton Children's Hospitaltart: 86-47-8793Igknytdxo C ScreeningHepatitis C ScreeningDayton Children's Hospitaltart: 72-52-6699Xytmxhknv C screeningHepatitis C ScreeningDayton Children's Hospitaltart: 38-62-8267JSP ScreeningHIV ScreeningDayton Children's Hospitaltart: 37-56-3902OFO screeningHIV ScreeningDayton Children's Hospitaltart: 40-70-7855Xwrbdmrnjf ScreeningDepression ScreeningFormerly [facility]althtart: 78-21-3053Lchmhtn ScreeningTobacco ScreeningFormerly [facility] Healthtart: 15-13-4554Xomyd-19 Vaccine (#1)Covid-19 Vaccine (#1)[facility]: 85-69-8083Armyshetf B Vaccine (1 of 3 - 3-dose series)Hepatitis B Vaccine (1 of 3 - 3-dose series)[facility]: 69-88-5042LEK screeningHIV Screening [facility]: 60-76-8568Hnrvy panelLipid Panel [facility]: 94-39-0446Onpxsz Adult PhysicalYearly Adult PhysicalUnOhioHealth Pickerington Methodist HospitalBacteria identified in Urine by CultureUrine culture Microbiology Routine Missed menses Ordered: 04/21/2024[facility] HealthcareComment on above:Ordered: 04/21/2024acteria identified in Urine by CultureUrine culture Microbiology Routine Urinary tract infection without hematuria, site unspecified Ordered: 05/15/2024[facility] Work Phone: comment on above:Ordered: 05/15/2024 End: 90-57-4842Lcxo & saline/contrast sonohyster/hysterosalpiXR HYSTEROSALPINGOGRAM Radiology Routine Fertility testing 1 Occurrences starting 04/18/2023 until 05/17/2024[facility] Work Phone: Comment on above:1 Occurrences starting 04/18/2023 until 05/17/2024 End: 15-39-4956HCK panel - Blood by Automated countCBC without diff Lab Routine Insulin controlled gestational diabetes mellitus (GDM) in third trimester Abnormal liver enzymes Elevated blood pressure affecting , antepartum 1 Occurrences starting 09/12/2024 until 09/12/2025[facility] SystemComment on above:1 Occurrences starting 09/12/2024 until 6CBC W Auto Differential panel - BloodCBC and differential Lab Routine Missed menses , unspecified gestational age Ordered: 04/21/2024[facility] HealthcareComment on above:Ordered: 04/21/2024 End: 50-82-9196Qjzprleotsxuxtweig.beta subunit [Units/volume] in Serum or Plasma HCG QUANTITATIVE Lab Routine examination or test, unconfirmed Daily for 2 Occurrences starting 03/13/2024 until 03/13/2025 [facility] Work Phone: Comment on above:Daily for 2 Occurrences starting 03/13/2024 until 03/13/2025horiogonadotropin.beta subunit [Units/volume] in Serum or PlasmaHCG QUANTITATIVE Lab Routine examination or test, unconfirmed 03/13/2024 3:37 PM [facility] End: 48-47-9624Pjxmeijtjcuaw metabolic 2000 panel - Serum or PlasmaComprehensive metabolic panel Lab Routine Abnormal liver enzymes Abnormal genetic test Gestational diabetes requiring insulin Elevated blood pressure affecting , antepartum 1 Occurrences starting 09/12/2024 until 09/12/2025 [facility] Work Phone: comment on above:1 Occurrences starting 09/12/2024 until 09/12/2025 End: 76-58-8226OC Abdomen W contrast IVCT ABDOMEN W IVCON Radiology Routine Intra-abdominal and pelvic swelling, mass and lump, unspecified site 1 Occurrences starting 06/16/2023 until 07/15/2024[facility] Work Phone: Comment on above:1 Occurrences starting 06/16/2023 until 07/15/2024 End: 77-32-7542GX Chest W contrast IVCT CHEST W IVCON Radiology Routine Localized enlarged lymph nodes 1 Occurrences starting 06/16/2023until 07/15/2024 [facility] Work Phone: Comxjpg on above:1 Occurrences starting 06/16/2023 until 07/15/2024 End: 78-27-2966PG Neck W contrast IVCT NECK SOFT TISSUE W IVCON Radiology Routine Localized enlarged lymph nodes 1 Occurrences iapmirgd93/20/2024 until 07/15/2024[facility] Work Phone: Comsurj on above:1 Occurrences starting 06/16/2023 until 07/15/2024Hemoglobin A1c/Hemoglobin.total in BloodHemoglobin A1c Lab Routine Missed menses , unspecified gestational age Ordered: 04/21/2024 [facility] HealthcareComment on above:Ordered: 04/21/2024Hepatitis B virus surface Ag [Presence] in Serum or Plasma by ImmunoassayHepatitis B surface antigen Lab Routine Missed menses , unspecified gestational age Ordered: 04/21/2024 [facility] HealthcareComment on above:Ordered: 04/21/2024Hepatitis C virus Ab [Presence] in Serum or Plasma by ImmunoassayHepatitis C antibody Lab Routine Missed menses , unspecified gestational age Ordered: 04/21/2024[facility] HealthcareComment on above:Ordered: 04/21/2024HIV-1/HIV-2 antigen/antibody combination immunoassayHIV-1 and HIV-2 antibodies Lab Routine Missed menses , unspecified gestational age Ordered: 04/21/2024[facility] HealthcareComment on above:Ordered: 04/21/2024IGP,rfxAptima HPV all,16/18,45IGP,rfxAptima HPV all,16/18,45 Pathology and Cytology Routine Screening for malignant neoplasm of cervix Ordered: 02/15/2024[facility] Healthcare Work Phone: comment on above:Ordered: 02/15/2024eagin Ab [Presence] in Serum by RPRRPR Lab Routine Missed menses , unspecified gestational age Ordered: 04/21/2024[facility] HealthcareComment on above:Ordered: 04/21/2024RF Uterus and Fallopian tubes Views W contrast IUXR HYSTEROSALPINGOGRAM Radiology Routine Fertility testing 07/29/2023 2:03 PM EDT [facility] Work Phone: Rubella antibody, IgGRubella antibody, IgG Lab Routine Missed menses , unspecified gestational age Ordered: 04/21/2024[facility] HealthcareComment on above:Ordered: 04/21/2024 End: 43-54-5740Sxdba protein creatinine ratioUrine protein creatinine ratio Lab Routine Gestational diabetes requiring insulin Elevated blood pressure affecting , antepartum 1 Occurrences starting 09/12/2024 until 09/12/2025 [facility] System[facility]:1 Occurrences starting 09/12/2024 until 09/12/2025 End: 58-22-7973UD for pregnancyUS OB follow up transabdominal approach Imaging Routine Gestational diabetes mellitus (GDM), antepartum, gestational diabetes method of control unspecified d2craml for 8 Occurrences starting 08/30/2024 until 03/01/2025[facility] Work Phone: comment on above:h2fjxci for 8 Occurrences starting 08/30/2024 until 03/01/2025[facility]an[facility]horacicThe [facility]US Pelvis transvaginalUS OB transvaginal Imaging Routine Missed menses 04/21/2024 8:47 AM [facility] Immunizations Immunization DateImmunizationNotesCare WlfycooyZljhrxse61-30-1388TNL(D) immune globulin- IV or IMBrooke [facility]02-06-2024measles, mumps and rubella virus vaccineWilliacitlaly Goldsmith DO Work Phone: [facility] HealthcareCgtewthtzq00-22-7134flawqgo toxoid, reduced diphtheria toxoid, and acellular pertussis vaccine, adsorbedPamela Eliza Other [place] [address] Other [id number] Papillomavirus 9-valent vaccineWilliacitlaly Rupal DO Work Phone: [facility] HealthcareHlgeyviysc27-31-2598Xoldw Papillomavirus 9-valent vaccineWilliam Rupal DO Work Phone: [facility] HealthcareMhsalykmwe29-84-6300grkbconrz, seasonal, injectable, preservative freeWilliam Rupal DO Work Phone: [facility] HealthcareHpmybdmjqr29-94-3859ovdvqpkuh virus vaccine, unspecified formulationFede Hairston MD Work Phone: [facility] CantonQokvdf99-52-4244Zwmjz Papillomavirus 9- valent vaccineWilliam Rupal DO Work Phone: [facility] HealthcareYdbsqhbmdj30-12-2271mukqh upoupxoiu-S5K6-73, preservative-free, injectableWilliacitlaly Goldsmith DO Work Phone: [facility] HealthcareFnxccfrlzj01-03-8026hyejqmuseguub polysaccharide (groups A, C, Y and W-135) diphtheria toxoid conjugate vaccine (MCV4P)Vero Goldsmith DO Work Phone: [facility] HealthcareWdxvnvqhcs76-66-4167mmlxavezon, tetanus toxoids and acellular pertussis vaccine, unspecified formulationWilliam Rupal DO Work Phone: [facility] HealthcareAmughfapgh58-80-2012vemzmzz, mumps and rubella virus vaccineWilliam Rupal DO Work Phone: [phone] [place], [place] [address]Gxybtlxtqa96-53-0055rmcbuttdts vaccine, inactivatedWilliam Rupal DO Work Phone: [phone] HealthcareKavtvjfqzc74-22-6127llpidjoncn, tetanus toxoids and acellular pertussis vaccine, unspecified formulationWilliam Rupal DO Work Phone: [facility] HealthcareCojkdpkejz26-79-3756dnnlskmnzza influenzae type b vaccine, conjugate unspecified formulationWilliam Rupal DO Work Phone: [phone] [address] StreetDciwgpxkdc90-38-3887fdlutazdy virus vaccine Vero Rupal DO Work Phone: [phone] HealthcareLxxwvlniht89-56-1325jhotdfm, mumps and rubella virus vaccineWilliam Rupal DO Work Phone: [phone] [place], [place] [address]Tekxziwfeu47-99-7020ypbgbprrpa, tetanus toxoids and acellular pertussis vaccine, unspecified formulationWilliam Rupal DO Work Phone: [phone] [place], [place] [address]Ebveqxnslc26-41-2059rtryqjwvmmo influenzae type b vaccine, conjugate unspecified formulationWilliam Rupal DO Work Phone: [facility] HealthcareBajfvnjyap97-31-8371cdxsasmww B vaccine, pediatric or pediatric/adolescent dosageWilliam Rupal DO Work Phone: [phone] [place], [place] [address]Xfmahglemw95-31-0420fkbhpwixu poliovirus vaccine, live, oralWilliam Rupal DO Work Phone: [facility] HealthcareTnzwcnaqyj70-46-8354ydxyzduymm, tetanus toxoids and pertussis vaccineWilliam Rupal DO Work Phone: [phone] [place], [place] [address]Tytgfshsqf34-92-2093mmjkuqaljle influenzae type b vaccine, conjugate unspecified formulationWilliam Rupal DO Work Phone: [facility] HealthcareXseaquelhi81-33-8980zlhzrhcfz B vaccine, pediatric or pediatric/adolescent dosageWilliam Rupal DO Work Phone: [facility] HealthcareIpgcxbjbhg14-33-4859rfsfbbnjc poliovirus vaccine, live, oralWilliam Rupal DO Work Phone: [facility] HealthcareFzzshlheyt50-59-4995nmpvqeunxd, tetanus toxoids and pertussis vaccineWilliam Rupal DO Work Phone: [facility] HealthcarePryuktrrhf43-85-0546mclakoivdoo influenzae type b vaccine, conjugate unspecified formulationWimoises Goldsmith DO Work Phone: [facility] HealthcareZhrzavhcts63-98-8700vvllvoodl B vaccine, pediatric or pediatric/adolescent dosageWilliam Rupal DO Work Phone: [facility] HealthcareGwwumrdavr66-91-4225jplhstrjj poliovirus vaccine, live, oralWilliam Rupal DO Work Phone: [facility] Payers DatePayer CategoryPayerPolicy [id number] Managed Care - POS [id number] Managed Care - PPOMEDICAL M[employer]UAL .[id number]00-65-5950Lfputdo Health [id number]19856779994-72-7745Qrxsefg Health [id number]0.23943-20-1860Civmzcb Care (Private)[employer] [facility] Member Subscriber Plan / Payer (Effective 2021-Present) Name: Emilee Rivas Relation to Subscriber: Self Name: Emilee Rivas Payer ID: 1 (IC) Type: Not on file Address: [id number] [id number] Managed Care HMO (unspecified)[id number] 44-69-9776Iooipgr Health [id number] 2..2.851997.1500-06-1996 [id number] 2..1.160149.3.579.2.[id number] 2..1.870237.3.579.[id number] 2..1.058667.3.579.2.9[id number] 2..1.481680.3.579.[id number] 2.0.1.720402.3.579.2.852937-73-9893Mluowbq684907476 2..1.349596.3.579.2.3591[id number] 2..1.949522.3.579.2.433181-41-0886Sczsrbx151615629 2..1.293624.3.579.[id number] 2.16.840.1.474219.3.579.2.3270[id number] 2.16.840.1.715761.3.579.[id number] 2.16.840.1.767995.3.579.2.176643-50-7309Nbatcsv24799151 2.16840.1.280930.3.579.2.448306-98-5090Hglmblu80634802 2.16840.1.906335.3.579.2.594199-37-5832Gloskfh23257944 2.16840.1.742544.3.579.2.997421-75-1625Qmzjczy03114555 2.840.1.636155.3.579.2.483713-80-2267Vdvksea51358432 2.16840.1.829867.3.579.2.111791-97-9811Ltyjeqe22644747 2.16840.1.881280.3.579.2.677457-47-3859Xkndxbc31628802 2.16840.1.221589.3.579.2.115033-89-4657Vhkhiqr18753422 2.16840.1.867745.3.579.2.859792-08-7055Nesnogf85981581 2.16840.1.160870.3.579.2.995434-65-0697Jemgjln16597870 2.16840.1.339197.3.579.2.513198-23-1179Djgvcyp7871359 2.16840.1.208739.3.579.2.139151-64-1533Tmsgpwa0723518 2.16840.1.686978.3.579.2.643814-56-8329Zovvbjv4167317 2.0.1.250654.3.579.2.373264-06-2356Ybaheam6455438 2.0.1.224200.3.579.2.024055-40-6242Yhvuzrr4223421 2.0.1.562615.3.579.2.715726-05-5972Hhdwrro3508341 2..1.622533.3.579.2.310168-60-8080Dsvnvtr3237162 2..1.706723.3.579.2.983576-52-7176Ztkewfw9846658 2..1.690195.3.579.2.883210-95-9263Ffbbhdr0679005 2..1.748155.3.579.2.162790-84-7410Xngtpjy6859831 2..1.793789.3.579.2.544429-25-3027Diclijl3587091 2..1.957763.3.579.2.078725-02-2734Vnxtzyg6113068 2..1.205784.3.579.2.638370-70-9293Rolcyhr9095422 2..1.455372.3.579.2.057678-66-0567Egdrtti7041864 2..1.142997.3.579.2.285208-44-2220Ikqn-axkWirjavqWUC695368211278 f03ngdf4-543o-05a5-wy00-6751266cz3p4QhgkbglGXGP/HFA/FAP Xjbvvr387442703 7158y74m-u3j4-6i19-563b-39q8628417n8Efqobah84150800 2.0.1.100913.3.579.2.367Hyokdcu59125842 2.16.840.1.837142.3.579.2.531 Xjqbltg12808569 2.16.840.1.803555.3.579.2.161Xgsyysq08457219 2.16.840.1.798800.3.579.2.531 Social History DateTypeDetailFacilityUnknown if ever smokedThompsonville 36[place] Other Start: 01-04-2023 End: 56-19-7317Tnn [facility] Other Start: 12-29-2022 End: 53-48-0162Dxgnudj smoking status NHISNever smoked tobaccoSelect [facility] Start: 10-05-2022 End: 13-14-8770Lzvexnp use and exposureSmokeless tobacco non-userDayton Children's Hospitaltart: 01-04-2023 End: 19-92-7347Leupzfy intakeCurrent drinker of alcohol (finding)[facility]: 01-04-2023 End: 07-61-2574Lqmsyak of Social functionDayton Children's Hospitaltart: 12-29-2022 Alcohol Commentrare, sociallyDayton Children's Hospitaltart: 87-14-5597Ffm Assigned At BirthFemaleCeast [facility] ClinicStart: 51-10-5385Jhtgwn identityIdentifies as female gender (finding)[facility] Hospital[facility]: 64-79-1422Qkbwmjzj Score (1-100), lower number is lower djqp98SnqdlznlqDayton Children's Hospitaltart: 02-15-2024 End: 19-62-5979Oghvlujmv beverage intakeEx-drinker (finding)[facility] HealthcareHow often to you have a drink containing alcohol?NeverNOMN HealthcareStart: 84-97-2691Kpduzjw CommentCaffeine intake: 1 cup per day coffeeNOMN Healthcare Start: 99-65-6475Pnj assigned at birthNot on fileCACHE VALLEY [facility]OS[facility] HealthcareStart: 02-27-2024 End: 83-78-3606Yyrmzcgz to SARS-CoV-2 (event)Not [facility] HealthStart: 74-98-5915Rqpjevm CommentCaffeine intake:less than 100 mg daily [facility] HealthcareStart: 85-37-2526ZnxahcmbgHGDB HealthcareStart: 05-23-2024 End: 13-51-0298Xglshdjvl beverage intakeLifetime non-drinker (finding)[facility] HealthcareStart: 08-25-2024 End: 77-18-6946BezTnwrka (finding)[facility] Medical Equipment Procedure CodeEquipment CodeEquipment Original TextEquipment IdentifierDatesTo be used to inject HCG [id number]: 02-17-2024 End: 05-44-5994Ws be used to mix, draw up and inject HCG [id number]: 02-17-2024 End: strip by In Vitro route Daily Use in the morning prior to breakfast, 1 hour after each meal for atotal of 4times daily.[id number]: 08-25-2024 End: each by In Vitro route Daily Use to check FSBS four times daily [id number]: 08-25-2024 End: 09-24-2024 Goals DatePatient GoalDesired Activity/StatePersonal health goal Functional Status RqlqEaemwngsorDrnimdZbhichjc33-39-3951Dzosbny Health Questionnaire 2 item (PHQ- 2) [Reported][facility] Clinical Notes 03-29-2020 to 12-11-2024 Note Date & DudhXczpUeksckom35-37-1303 History of Present illness Narrative* Selina Denson NP - 12/11/2024 8:50 AM EDT Reason for Appointment: Patient ID: Thao Rivas is a 29 y.o. female who presents for Follow-up Patient presents today for Post Follow Up appointment. MEDICATIONS Current Outpatient Medications Medication Instructions acetaminophen-codeine (Tylenol w/ Codeine #3) 300-30 MG tablet 1 tablet, Every 6 hours PRN ibuprofen 800 mg, Every 8 hours MV-Min-Fe Fum-FA-DHA ( 1 PO) Take by [...] HISTORY Past Surgical History: Procedure Laterality Date SECTION, CLASSIC 10/30/2024 [facility] EYE SURGERY 03/2020 APRIL Lau REVIEW OF [...] Skin: General: Skin is warm and dry. Comments: Low transverse incisional site has healed. Psychiatric: Mood and Affect: Mood normal. Behavior: Behavior normal. Vitals and nursing note reviewed. Exam conducted with a director of marketing [employer] present. Vitals: Estimated body mass index is 36.31 kg/m as calculated from the following: Height as of 07/18/24: 5' 3 . Weight as of this encounter: 205 lb. BP: 122/78 No LMP recorded. ASSESSMENT & PLAN ICD-10-CM 1. 6 weeks follow-up ([facility]) Z39.2 Post Follow Up: Patient is doing well without complaints. Patient presents today for 6 week visit. Patient is s/p delivery. Patient states depression but denies suicidal and homicidal ideations.All options were discussed with the patient regarding control and patient desires no control at this time. Patient is and doing well. Incisional site has completely healed and without complaints of pain or secondary infection Follow Up: Patient is to return for annual unless needed otherwise. Documented by Selina Denson NP on behalf of: Saravanan Ahumada DO documented in this encounterMissouri Southern HealthcareCragvlauex01-61-2161 Telephone encounter Note* Telephone Encounter - Gaye Hollis LPN - 11/09/2024 1:34 PM EDT Gabby, it is Susana Meade. Maternal medicine and Hernández. Just wanted to give Dr Ahumada an update on Emilee. CATRACHITA. She was admitted for medical induction, ended up with pre acclaim. Severe features date of is 100 696. She did deliver on the at 37 weeks. I did send discharge informationYour way, she was discharged on the . Re admitted again for severe preeclampsia, actually watched and triage and discharge on the . So if you have any questions, give me a call for [phone]. Thank you. [facility] Work Phone: [phone]) 873-704908-14-2025 Miscellaneous Notes* Telephone Encounter - Gaye Hollis LPN - 11/09/2024 1:34 PM EDT Gabby, it is Susana Meade. Maternal medicine and Hernández. Just wanted to give Dr Ahumada an update on Emilee. CATRACHITA. She was admitted for medical induction, ended up with pre acclaim. Severe features date of is 100 696. She did deliver on the at 37 weeks. I did send discharge informationYour way, she was discharged on the . Re admitted again for severe preeclampsia, actually watched and triage and discharge on the . So if you have any questions, give me a call for [phone]. Thank you. documented in this encounterMissouri Southern HealthcareQhzkqjdszx95-17-2434 History of Present illness Narrative* aKyla Ashley LPN - 11/09/2024 10:00 AM EDT Images from the original note were not included. Reason for Appointment: Patient ID: Thao Rivas is a 29 y.o. female who presents for No chief complaint on file. Patient presents today for Post Follow Up appointment. and 1 Week Post Op Follow Up appointment. MEDICATIONS Current Outpatient Medications Medication Instructions acetaminophen-codeine (Tylenol w/ Codeine #3) 300-30 MG tablet 1 tablet, Every 6 hours PRN ibuprofen 800 mg, Every 8 hours MV-Min-Fe Fum-FA-DHA ( 1 PO) Take by [...] HISTORY Past Surgical History: Procedure Laterality Date SECTION, CLASSIC 10/30/2024 [facility] EYE SURGERY 03/2020 APRIL Lau REVIEW OF [...] Breath sounds: Normal breath sounds. Abdominal: General: A surgical scar is present. Bowel sounds are normal. There is no distension. Palpations: Abdomen is soft. Tenderness: There is no abdominal tenderness. There is no guarding or rebound. Comments: scar Musculoskeletal: General: No swelling. Normal range of motion. Right lower leg: No edema. Left lower leg: No edema. Neurological: Mental Status: She is alert and oriented to person, place, and time. Skin: General: Skin is warm and dry. Psychiatric: Mood and Affect: Mood normal. Behavior: Behavior normal. Vitals and nursing note reviewed. Exam conducted with a director of marketing [employer] performance [employer] present. Vitals: Estimated body mass index is 36.34 kg/m as calculated from the following: Height as of 07/18/24: 5' 3 . Weight as of this encounter: 205 lb 1.9 oz. BP: 132/82 No LMP recorded. ASSESSMENT & PLAN ICD-10-CM 1. Follow-up, , routine ([facility]) Z39.2 2. S/P Z98.891 Patient and spouse present to office today for 1 week follow up post appointment. Patient had at [facility] due to heart rate during labor verses proceeding with vaginal delivery. Patient was diagnosed with pre-eclampsia and HTN. Patient to return to clinic in 5 weeks for 6 week post partu/ post operative appointment. Incision healing well and no signs of infection. Patient voiced that she has had an increase in anxiety, mainly from being in the NICU, but denies any medication at this time. If patient feels that she would like to start medication for a short time, then patient is able to call office and medication for anxiety can be sent to [facility] pharmacy. Documented by Kayla Ashley LPN on behalf of: Saravanan Ahumada DO documented in this encounterMissouri Southern HealthcarePwjtiyzefs39-54-7752 Miscellaneous Notes* Note - Cristela Eduardo RN - 11/08/2024 9:00 AM EDT This note was copied from a baby's chart. Met with parents bedside to do another weighted feed to see how is transferring. Infants starting weight was 2648g. went to breast for about 40 minutes and the end weight was 2680g, with a transfer of about 32ml. MARLINE discussed with parents the concern of not transferring enough milk and infant hasn't had a weight gain since ad tessa breast. Parents stated that he ate better over night and was content after each feeding. LC explained that the weighted feed would be discussed with the care team. Support given. Signs of a good feeding Hearing swallowing at least every third suck once the milk comes-in. Seeing milk in the baby s mouth Consistent sucking with only brief pauses The breasts are softer after feedings Feeling strong, deep, pulling , sucking, no sharp pain Leaking from the other breast or feeling of a let-down reflex or noticing a change in the baby s sucking rhythm from faster to slower Your baby latches-on easily with minimal attempts and stays latched-on. DEEP LATCH SUGGESTIONS: -position baby at level of the breast, use lots of pillows for support -position baby belly to belly , with ear in line with shoulder and hip -use one hand to support baby at the shoulders to help with head control and keep airway straight and open -point nipple toward nose/roof of baby's mouth -wait for baby to open wide, bring on chin-first for an asymmetrical latch : scoop as much of bottom breast tissue/areola into baby's mouth first, then bring baby up and over to complete a deep latch *if latch becomes uncomfortable or appears shallow, break seal with finger to take baby off, try tolatch again documented in this encounterSCCI Hospital [facility] Obstetrics Note* Note - Cristela Eduardo RN - 11/08/2024 9:00 AM EDT This note was copied from a baby's chart. Met with parents bedside to do another weighted feed to see how infant is transferring. Infants starting weight was 2648g. Infant went to breast for about 40 minutes and the end weight was 2680g, with a transfer of about 32ml. MARLINE discussed with parents the concern of not transferring enough milk and hasn't had a weight gain since ad tessa breast. Parents stated that he ate better over night and was content after each feeding. MARLINE explained that the weighted feed would be discussed with the care team. Support given. Signs of a good feeding Hearing swallowing at least every third suck once the milk comes-in. Seeing milk in the baby s mouth Consistent sucking with only brief pauses The breasts are softer after feedings Feeling strong, deep, pulling , sucking, no sharp pain Leaking from the other breast or feeling of a let-down reflex or noticing a change in the baby s sucking rhythm from faster to slower Your baby latches-on easily with minimal attempts and stays latched-on. DEEP LATCH SUGGESTIONS: -position baby at level of the breast, use lots of pillows for support -position baby belly to belly , with ear in line with shoulder and hip -use one hand to support baby at the shoulders to help with head control and keep airway straight and open -point nipple toward nose/roof of baby's mouth -wait for baby to open wide, bring on chin-first for an asymmetrical latch : scoop as much of bottom breast tissue/areola into baby's mouth first, then bring baby up and over to complete a deep latch *if latch becomes uncomfortable or appears shallow, break seal with finger to take baby off, try tolatch again [employer] [employer] Dltnqg48-12-7019 Miscellaneous Notes* Note - Cherelle Canales RN - 11/07/2024 9:08 AM EDT This note was copied from a baby's chart. Met with mom at 's bedside. States that yesterday breast and bottle feeding seemed to go well. When infant was at breast, she was hearing consistent swallows for extended periods of time with only small pauses. Overnight and this morning, she has noticed that bottle feeding seems to not be going as well and she is unsure how active he is at breast. did have a weight loss overnight. Mom does well using both the cross cradle position and the football hold with good latch and active sucking. Mom does use breast compressions well to help keep infant engaged at breast, however,swallows heard only every 5-10 sucks or so and infant seems sleepy at breast. Mom states this is a big difference from yesterday. Recommend a weighted feed to assess more accurate transfer. Reassuredmom that this can be normal at 37 weeks gestation, with periods of increased sleepiness as the continue to grow and gain stamina. Pumping continues to go well with stable supply, when infant is not actively at breast, mom is doing full pump sessions producing about 2oz breast milk each time. No further questions or concerns, will reach out for weighted feed when ready. documented in this [facility] Obstetrics Note* Note - Cherelle Canales RN - 11/07/2024 9:08 AM EDT This note was copied from a baby's chart. Met with mom at 's bedside. States that yesterday breast and bottle feeding seemed to go well. When infant was at breast, she was hearing consistent swallows for extended periods of time with only small pauses. Overnight and this morning, she has noticed that bottle feeding seems to not be going as well and she is unsure how active he is at breast. did have a weight loss overnight. Mom does well using both the cross cradle position and the football hold with good latch and active sucking. Mom does use breast compressions well to help keep infant engaged at breast, however,swallows heard only every 5-10 sucks or so and infant seems sleepy at breast. Mom states this is a big difference from yesterday. Recommend a weighted feed to assess more accurate transfer. Reassuredmom that this can be normal at 37 weeks gestation, with periods of increased sleepiness as the continue to grow and gain stamina. Pumping continues to go well with stable supply, when infant is not actively at breast, mom is doing full pump sessions producing about 2oz breast milk each time. No further questions or concerns, will reach out for weighted feed when ready. [facility] Obstetrics Note* Note - Rosa Arango RN - 11/06/2024 12:47 AM EDT This note was copied from a baby's chart. revisit. Follow up with pumping and latching status. Mother states everything is going well and does not have questions or concerns at this time. Encouraged to call out for latching assistace or if questions arise. Discussed scheduling and out patient visit after discharge if that is something desired. Call as needed to schedule a visit outpatient with / specialists. [facility] Location: [address] [place] [id number] Clinics specialize in treating conditions such as: Pre/ consultations Low milk supply and oversupply Slow weight gain of a Special feeding concerns of feeding multiples, premature infants, and infants with complex medical issues support for persons with complex medical needs Conditions on the mastitis spectrum Tongue-Tie and Lip-Tie management Inducing Assistance with positioning and latch Flange-fitting and breast pump usage Weaning support Latching difficulties Pumping and/or returning to work [facility]08[facility] Miscellaneous Notes* Note - Rosa Arango RN - 11/06/2024 12:47 AM EDT This note was copied from a baby's chart. revisit. Follow up with pumping and latching infant status. Mother states everything is going well and does not have questions or concerns at this time. Encouraged to call out for latching assistace or if questions arise. Discussed scheduling and out patient visit after discharge if that is something desired. Call as needed to schedule a visit outpatient with / specialists. [facility] Location: [address] [place] [phone] Clinics specialize in treating conditions such as: Pre/ consultations Low milk supply and oversupply Slow weight gain of a infant Special feeding concerns of feeding multiples, premature infants, and infants with complex medical issues support for persons with complex medical needs Conditions on the mastitis spectrum Tongue-Tie and Lip-Tie management Inducing Assistance with positioning and latch Flange-fitting and breast pump usage Weaning support Latching difficulties Pumping and/or returning to work documented in this encounterS[facility]25 Miscellaneous Notes* Note - Nessa Mccormick RN - 11/04/2024 9:38 AM EDT This note was copied from a baby's chart. Met with mom at infants bedside. States pumping is going well, pumping about 50 ml a session. Denies pain. Has been bringing to breast about 3x a day. Infant latches from about 5-25 mins depending on how tired out becomes. Discussed this is normal for gestational age. Taught ways to keep infant awake at breast and the difference between an active feed and non nutritive sucking. Reviewed guidelines. No concerns or questions at this time. Encouraged to call out for any needs. Pump guidelines: Pump every 2-3 hours for 15-20 minutes each time Pump 8-12 times in 24 hours Clean parts in warm, soapy water; rinse and air dry after every use Sanitize parts once a day Signs of a good feeding Hearing swallowing at least every third suck once the milk comes-in. Seeing milk in the baby s mouth Consistent sucking with only brief pauses The breasts are softer after feedings Feeling strong, deep, pulling , sucking, no sharp pain Leaking from the other breast or feeling of a let-down reflex or noticing a change in the baby s sucking rhythm from faster to slower Your baby latches-on easily with minimal attempts and stays latched-on. documented in this encounterS[facility] Obstetrics Note* Note - Nessa Mccormick RN - 11/04/2024 9:38 AM EDT This note was copied from a baby's chart. Met with mom at infants bedside. States pumping is going well, pumping about 50 ml a session. Denies pain. Has been bringing to breast about 3x a day. Infant latches from about 5-25 mins depending on how tired out infant becomes. Discussed this is normal for gestational age. Taught ways to keep infant awake at breast and the difference between an active feed and non nutritive sucking. Reviewed guidelines. No concerns or questions at this time. Encouraged to call out for any needs. Pump guidelines: Pump every 2-3 hours for 15-20 minutes each time Pump 8-12 times in 24 hours Clean parts in warm, soapy water; rinse and air dry after every use Sanitize parts once a day Signs of a good feeding Hearing swallowing at least every third suck once the milk comes-in. Seeing milk in the baby s mouth Consistent sucking with only brief pauses The breasts are softer after feedings Feeling strong, deep, pulling , sucking, no sharp pain Leaking from the other breast or feeling of a let-down reflex or noticing a change in the baby s sucking rhythm from faster to slower Your baby latches-on easily with minimal attempts and stays latched-on. [email or web address]08-[facility] Miscellaneous Notes* Note - Cherelle Canales RN - 11/03/2024 11:46 AM EDT This note was copied from a baby's chart. Met with mom at 's bedside. States pumping continues to go well with increasing supply, producing about 20-30mls breast milk with each pump. No complaints of pain or breakdown. She is beginningto feel some engorgement, discussed management such as gentle massage before and during pumping followed by cold packs to breasts afterwards to help with any lingering swelling. was given a minimum intake amount yesterday, mom had not been to ensure tolerated minimum first. Encouraged to offer breast anytime she is here during care times and infant is showing appropriate hunger cues. Aim for at least 16 minutes of active sucking and audible swallows. If unableto maintain a latch for the full 16 minutes, he will be offered a portion of his minimum ordered feed to ensure adequate calorie intake. No further questions or concerns, encouraged to call out for any other assistance. 1255: Returned to room for latch assist. Mom does great positioning independently in football hold.Infant has just finished 25 minutes of active sucking and audible swallows on the right breast. After burping , placed to left breast with brief latch, but beginning to tire. Recommend pumping left breast for at least 10 minutes to protect supply. Call for any other assistance. Feeding Cues: -hands in mouth -smacking lips -rooting -eyes open Signs of a good feeding Hearing swallowing at least every third suck once the milk comes-in. Seeing milk in the baby s mouth Consistent sucking with only brief pauses The breasts are softer after feedings Feeling strong, deep, pulling , sucking, no sharp pain Leaking from the other breast or feeling of a let-down reflex or noticing a change in the baby s sucking rhythm from faster to slower Your baby latches-on easily with minimal attempts and stays latched-on. Plan: Offer breast each feed when infant cues for 5-10 minutes. Feeding Cues: -hands in mouth -smacking lips -rooting -eyes open If after 5-10 minutes has latched allow to continue until satisfied and follow IDF feeding protocol. Educated on how to supplement after infant goes to breast. Supplementation is based on infants direct time and quality score. Mothers milk supply must also be taken into account. This is per RN discretion. Algorithm Quality Score 1-5, Direct time 0-5 minutes: Gavage all Quality score 1-3, Direct time 6-10 minutes: Gavage 2/3 Quality Score 1-3, Direct time 11-15 minutes: Gavage 1/3 Quality Score 1-3, Direct time 16 minutes or more: No Gavage. If after 5-10 minutes infant does not latch but infant continues to show feeding cues, offer bottle. If after 5-10 minutes does not latch but does not show the feeding cues for a bottle, start gavage fed and allow infant to have continued access to breast. documented in this encounterS[facility]08-08-2025 Obstetrics Note* Note - Cherelle Canales RN - 11/03/2024 11:46 AM EDT This note was copied from a baby's chart. Met with mom at 's bedside. States pumping continues to go well with increasing supply, producing about 20-30mls breast milk with each pump. No complaints of pain or breakdown. She is beginningto feel some engorgement, discussed management such as gentle massage before and during pumping followed by cold packs to breasts afterwards to help with any lingering swelling. Infant was given a minimum intake amount yesterday, mom had not been to ensure tolerated minimum first. Encouraged to offer breast anytime she is here during care times and is showing appropriate hunger cues. Aim for at least 16 minutes of active sucking and audible swallows. If infant unableto maintain a latch for the full 16 minutes, he will be offered a portion of his minimum ordered feed to ensure adequate calorie intake. No further questions or concerns, encouraged to call out for any other assistance. 1255: Returned to room for latch assist. Mom does great positioning independently in football hold. has just finished 25 minutes of active sucking and audible swallows on the right breast. After burping infant, placed to left breast with brief latch, but beginning to tire. Recommend pumping left breast for at least 10 minutes to protect supply. Call for any other assistance. Feeding Cues: -hands in mouth -smacking lips -rooting -eyes open Signs of a good feeding Hearing swallowing at least every third suck once the milk comes-in. Seeing milk in the baby s mouth Consistent sucking with only brief pauses The breasts are softer after feedings Feeling strong, deep, pulling , sucking, no sharp pain Leaking from the other breast or feeling of a let-down reflex or noticing a change in the baby s sucking rhythm from faster to slower Your baby latches-on easily with minimal attempts and stays latched-on. Plan: Offer breast each feed when infant cues for 5-10 minutes. Feeding Cues: -hands in mouth -smacking lips -rooting -eyes open If after 5-10 minutes has latched allow to continue until satisfied and follow IDF feeding protocol. Educated on how to supplement after infant goes to breast. Supplementation is based on infants direct time and quality score. Mothers milk supply must also be taken into account. This is per RN discretion. Algorithm Quality Score 1-5, Direct time 0-5 minutes: Gavage all Quality score 1-3, Direct time 6-10 minutes: Gavage 2/3 Quality Score 1-3, Direct time 11-15 minutes: Gavage 1/3 Quality Score 1-3, Direct time 16 minutes or more: No Gavage. If after 5-10 minutes does not latch but continues to show feeding cues, offer bottle. If after 5-10 minutes does not latch but does not show the feeding cues for a bottle, start gavage fed and allow infant to have continued access to breast. [facility] Miscellaneous Notes* Telephone Encounter - Samina Haywood RN - 11/03/2024 8:09 AM EDT Patient called and reported elevated BP of 146/96 and reports some swelling in legs. Patient delivered on Wednesday and is staying at the [facility]. Encouraged patient to go to L&D triage to get evaluated. Triage notified. documented in this encounterSCCI [facility]08-08-2025 Telephone encounter Note* Telephone Encounter - Samina Haywood RN - 11/03/2024 8:09 AM EDT Patient called and reported elevated BP of 146/96 and reports some swelling in legs. Patient delivered on Wednesday and is staying at the [facility]. Encouraged patient to go to L&D triage to get evaluated. Triage notified. [facility] Miscellaneous Notes* Telephone Encounter - Natty Coyle - 10/31/2024 8:24 AM EDT ----- Message from Vero Bundy MD sent at 10/30/2024 4:38 PM EDT ----- This patient was seen in consultation at [facility]. Following hospital discharge her follow-up will be on an as-needed basis only. Therefore no appointments need scheduled in our office Thank you documented in this encounterSCC[facility]08-05-2025 Telephone encounter Note* Telephone Encounter - Natty Gordon Pretty - 10/31/2024 8:24 AM EDT ----- Message from Vero Bundy MD sent at 10/30/2024 4:38 PM EDT ----- This patient was seen in consultation at [facility]. Following hospital discharge her follow-up will be on an as-needed basis only. Therefore no appointments need scheduled in our office Thank you [facility] History of Present illness Narrative* MILIND Mccormick - 10/24/2024 10:19 AM EDT [facility] recommendation is for patient to deliver at [facility] at 37 weeks gestation. Lan Analyst called [facility] regarding possibility of pt having [facility] appointment before 37 weeks. [facility] prefers pt to be scheduled for mIoL without appointment at [facility]. L&D contacted with patient information, including need for telemetry. mIOL set for 10/30/24 @ 0730. Patient to call [phone] prior to traveling on 10/30/24 to make sure of bed availability. Lan Analyst spoke with patient. Informed of mIOL scheduled for 10/30/24, to call before coming to confirm availability, where to park and enter hospital & how to get to L&D. Pt states understanding of plan. States she has an NST today and Wednesday in [place]. Denies questions or concerns. MILIND Mccormick 10/24/24 1026 documented in this encounterSCCI Hospital [facility]07-28-2025 History of Present illness Narrative* Kayla Ashley LPN - 10/23/2024 1:30 PM [...] cream Topical, Daily Blood Glucose Monitoring Suppl ([employer] Glucometer) w/Device kit 1 kit, Does not [...] nursing note reviewed. Exam conducted with a director of marketing google performance ads present. Vitals: Estimated body mass index is 40.39 kg/m as calculated from the following: Height as of 07/18/24: 5' 3 . Weight as of this encounter: 228 lb. BP: 136/90 Patient's last menstrual period was 02/13/2024 (approximate). ASSESSMENT & PLAN (Z34.93) Third trimester ([facility]) Plan: POCT urinalysis dipstick manually resulted, CULTURE, GROUP B STREP WITH SUSCEPTIBLITY, CULTURE, GROUP B STREP WITH SUSCEPTIBLITY (Z3A.36) 36 weeks gestation of ([facility]) Plan: Creatinine, Protein, urine, 24 hour, Pt and ptt, CBC and differential, Uric acid, Lactate dehydrogenase, ALT, AST, BUN, Creatinine, Protein, urine, 24 hour, Pt and ptt, CBC and differential, Uric acid, Lactate dehydrogenase, ALT, AST, BUN (O13.9) induced hypertension, antepartum ([facility]) Plan: Creatinine, Protein, urine, 24 hour, Pt and ptt, CBC and differential, Uric acid, Lactate dehydrogenase, ALT, AST, BUN, Creatinine, Protein, urine, 24 hour, Pt and ptt, CBC and differential, Uric acid, Lactate dehydrogenase, ALT, AST, BUN Patient presents today for a routine obstetrics appointment. Patient is currently 36w1d with a Estimated Date of Delivery: 11/19/24. Discussed with patient call from Specialist at [facility]. Patient is to deliver at [facility] due to recent cardiac workup. Patient will continue NST/BPP's locally and will delivery with [facility]. Nursing will reach out to [facility] and work on transfer with Nutrition Services Worker. Patient to return to clinic for 6 week post appointment.Patient did voice that she is not currently on any Beta Blockers & and not been prescribed any cardiac medication at this time. Documented by Kayla Ashley LPN on behalf of: Saravanan Ahumada DO documented in this encounterMissouri Southern [id number] History of Present illness Narrative* Samina Haywood RN - 10/23/2024 8:30 AM EDT Headache/epigastric pain/blurry vision/swelling? Bilateral hands swelling, denies other symptoms Cramping/contractions? Occasional uriah hick Spotting or vaginal bleeding? No Loss or gush of fluid like your water may have broken? No Recent ER visits or hospitalizations? No Any concerns that you would like me to mention to the provider today? Holter monitor results * Ran Corona MD - 10/23/2024 8:30 AM EDT Images [...] 2 units., Disp: 15 mL, Rfl: 2 [id number] acid ( 19) 29 mg iron- 1 mg tablet,chewable, Chew 1 tablet and swallow in the morning., Disp: , Rfl: LABS: No results found for: GLUF , MICROALBUR , LDLCALC , CREATININE No results found for: TSH , T3 , TOTALT4 , THYROIDAB No results found for: [id number] No results found for: CREATININE , BUN [...] in third trimester 4. Non-sustained ventricular tachycardia ([facility]) When I saw the patient I did [...] records she may have to deliver at [facility] and require telemetry as we also have [...] at a tertiary care center such as [facility] and telemetry during labor and for 24 [...] Cardiology. She has beenprescribed propranolol from the javascript developer. Give half the dose of long-acting insulin the night before delivery All questions and concerns that Dr. Ahumada had were answered Ran Corona MD, FACOG (she/hers) Maternal- Medicine [facility] [address] [facility] [address] [place] [address] documented in this encounterWhite River Junction Va Medical CenterMinerva Worldwide [id number] Evaluation note* Author Kurt Gonzalo [facility] SouthwoodsAuthoredJuly 2024 3:00pmImpression: This is a healthy 29-year-old white female with low baseline CHD [...] to discuss this therapeutic option with her PERSONNEL CLERKS SUPERVISOR who she is due to to visit with early next week. Recommendations: 1. Stat echocardiogram to ensure no significant drop in left ventricular systolic function since most recent echocardiogram done on August 24 2. Will provide Emilee prescription for propranolol 40 mg twice daily that she could start if she chooses to after consultation with her PERSONNEL CLERKS SUPERVISOR. This could be continued through term and [...] in the care of this delightful patient. [facility] Work Phone: 1(232) 498-583007-22-2025 Miscellaneous Notes* Telephone Encounter - MUNIRA Torres - 10/17/2024 1:37 PM EDT Called regarding Dexcom Clarity report from 10/10/2024-10/16/2024. Dr. Corona reviewed your blood sugars and does not want to make any changes in your Lantus at this time. Lissa verbalized understanding. documented in this encounterOhioHealth Arthur G.H. Bing, MD, Cancer CenterNanoViricides [facility] [id number] Telephone encounter Note* Telephone Encounter - MUNIRA Torres - 10/17/2024 1:37 PM EDT Called regarding Dexcom Clarity report from 10/10/2024-10/16/2024. Dr. Corona reviewed your blood sugars and does not want to make any changes in your Lantus at this time. Lissa verbalized understanding. [facility] Center[facility] Work Phone: 1(561) 968-128607-21-2025 History of Present illness Narrative* Selina Denson [...] cream Topical, Daily Blood Glucose Monitoring Suppl ([employer] Glucometer) w/Device kit 1 kit, Does not [...] nursing note reviewed. Exam conducted with a director of marketing google performance ads present. Vitals: Estimated body mass index is 40.61 kg/m as calculated from the following: Height as of 07/18/24: 5' 3 . Weight as of this encounter: 229 lb 4 oz. BP: 120/86 Patient's last menstrual period was 02/13/2024 (approximate). ASSESSMENT & PLAN ICD-10-CM 1. Third trimester ([facility]) Z34.93 POCT urinalysis dipstick manually resulted 2. 35 weeks gestation of ([facility]) Z3A.35 Return OB: Patient presents today for [...] closely with MFM and transmits glucose weekly. MFM recommends pre-eclampsia labs every 2 weeks and those were given to Mary today. The recommendation was to considered planned delivery at 37 weeks. Continue NST/BPP. Documented by Selina Denson NP on behalf of: Selina Denson NP documented in this encounterMissouri Southern [id number] History of Present illness Narrative* Gage Tatum CMA - 10/11/2024 2:00 PM EDT [...] chest pain. +FM. [facility] due to GDMA2. States she [...] 2 units., Disp: 15 mL, Rfl: 2 [id number] acid ( 19) 29 mg iron- 1 mg tablet,chewable, Chew 1 tablet and swallow in the morning., Disp: , Rfl: LABS: No results found for: GLUF , MICROALBUR , LDLCALC , CREATININE No results found for: TSH , T3 , TOTALT4 , THYROIDAB No results found for: [id number] No results found for: CREATININE , BUN [...] values to us weekly by e-mail to: [email or web address] or by fax to: [phone] TIME OF CONSULTATION: 30 minutes with the patient, >50% in discussion and counseling, coordination of care which was [id number], review of records and communication back to referring provider. CARLOS Ford 10/11/24 1444 documented in this encounterSCCI Hospital [facility]07-14-2025 History of Present illness Narrative* Kayla Ashley LPN - 10/09/2024 9:00 AM EDT [...] cream Topical, Daily Blood Glucose Monitoring Suppl ([employer] Glucometer) w/Device kit 1 kit, Does not [...] nursing note reviewed. Exam conducted with a director of marketing google performance ads present. Vitals: Estimated body mass index is 40.3 kg/m as calculated from the following: Height as of 07/18/24: 5' 3 . Weight as of this encounter: 227 lb 8 oz. BP: 136/86 Patient's last menstrual period was 02/13/2024 (approximate). ASSESSMENT & PLAN ICD-10-CM 1. Third trimester ([facility]) Z34.93 POCT urinalysis dipstick manually resulted 2. 34 weeks gestation of ([facility]) Z3A.34 3. 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 Insulin controlled gestational diabetes mellitus (GDM) during , antepartum ([facility]) O24.414 Patient presents today for a routine [...] of: Saravanan Ahumada DO documented in this encounterMissouri Southern [id number] History of Present illness Narrative* Selina Denson, DEXTER - 10/02/2024 11:00 AM EDT Reason for [...] cream Topical, Daily Blood Glucose Monitoring Suppl ([employer] Glucometer) w/Device kit 1 kit, Does not [...] nursing note reviewed. Exam conducted with a director of marketing google performance ads present. Vitals: Estimated body mass index is 40.1 kg/m as calculated from the following: Height as of 07/18/24: 5' 3 . Weight as of this encounter: 226 lb 6.4 oz. BP: 136/84 Patient's last menstrual period was 02/13/2024 (approximate). ASSESSMENT & PLAN ICD-10-CM 1. 33 weeks gestation of ([facility]) Z3A.33 POCT urinalysis dipstick manually resulted 2. Encounter for routine care ([facility]) Z34.90 POCT urinalysis dipstick manually resulted 3. Third trimester ([facility]) Z34.93 POCT urinalysis dipstick manually resulted Return [...] Lantus and glucose is being transmitted to [facility]. Continue NST/BPP. Recent epistaxis and discontinued Valtrex and changed to acyclovir. Documented by Selina Denson NP on behalf of: Saravanan Ahumada DO documented in this encounterMissouri Southern HealthcareUikionpnma61-23-3045 History of Present illness Narrative* Paula Rivera [...] nursing note reviewed. Exam conducted with a director of marketing google performance ads present. Vitals: Estimated body mass index is 39.95 kg/m as calculated from the following: Height as of 07/18/24: 5' 3 . Weight as of this encounter: 225 lb 8 oz. BP: 130/80 Patient's last menstrual period was 02/13/2024 (approximate). ASSESSMENT & PLAN ICD-10-CM 1. Third trimester ([facility]) Z34.93 POCT urinalysis dipstick manually resulted 2. Insulin controlled gestational diabetes mellitus (GDM) during , antepartum ([facility]) O24.414 3. 32 weeks gestation of ([facility]) Z3A.32 Return OB: Patient presents today for [...] of: Saravanan Ahumada DO documented in this encounterMissouri Southern HealthcareOwaecsmaoe32-83-6260 History of Present illness Narrative* Siria Rebolledo, CROP DUSTER HELPER-JUKEBOX CHECKER - 09/20/2024 11:00 AM EDT REASON FOR OFFICE VISIT: Video Visit via Real-time Synchronous Audiovisual Provider Location: [facility]- MEDICINE AT [address] [id number] Patient Location: Patient's home Video Visit Consent [...] that there are some limitations compared to vzmv-ph-ffcv evaluations. The patient consented to the presence [...] chest pain. +FM. [facility]. States she is [...] taking: Reported on 09/12/2024), Disp: , Rfl: ko077-qdzx-ptpzc acid ( 19) 29 mg iron- 1 [...] TOTALT4 , THYROIDAB No results found for: HZDATNFJS98 No results found for: CREATININE , BUN [...] by e-mail to: or by fax to: [phone] TIME OF CONSULTATION: 20 minutes with the patient, >50% in discussion and counseling, coordination of care which was ehvk-qc-ylru, review of records and communication back to referring provider. CARLOS Ford 09/20/24 1121 documented in this encounterSCCI [facility] History of Present illness Narrative* Selina Denson [...] cream Topical, Daily Blood Glucose Monitoring Suppl ([employer] Vacc[employer] Glucometer) w/Device kit 1 kit, Does not [...] ASSESSMENT & PLAN ICD-10-CM 1. Third trimester ([facility]) Z34.93 POCT urinalysis dipstick manually resulted 2. 31 weeks gestation of ([facility]) Z3A.31 Return OB: Patient presents today for [...] pm and glucose will be monitored per [facility] Documented by Selina Denson NP on behalf of: Saravanan Ahumada DO documented in this encounterMissouri Southern HealthcareKybrlggkdh97-91-4073 History of Present illness Narrative* Brian Poe PA-C - 09/12/2024 4:03 PM EDT Called and spoke with patient - she had the recommended pre-e labs done at [facility]. Patient had mild range [...] triage near her. She will go to [facility]. I called and spoke with RN in triage - informed that patient had CMP and CBC already drawn, but that urine sample was not taken. Recommend BP monitoring and evaluation of pre-e labs. Contact stated they would inform Dr Ahumada upon arrival of patient to hospital. Brian Poe PA-C 09/12/24 1608 documented in this encounterSCCI Hospital [place]06-17-2025 History of Present illness Narrative* Brian Poe PA-C - 09/12/2024 10:00 AM EDT [...] mouth in the morning., Disp: , Rfl: nc873-oxaf-evhoo acid ( 19) 29 mg iron- 1 [...] more likely to fail compared to insulin. extermination inspector data on children whose mothers took oral [...] Delivery recommendations : - Recommend delivery at [id number] - Use 1/2 dose of insulin the [...] by e-mail to: or by fax to: [phone] Brian Poe PA-C Maternal- Medicine Office phone: [phone] Brian Poe PA-C 09/12/24 1211 * Gage Tatum CMA - 09/12/2024 10:00 AM EDT [...] with questions or concerns. documented in this encounterSCCI Hospital [facility]06-16-2025 Instructions* Patient Instructions* Rosy Gallagher MD - 09/11/2024 9:21 AM EDT [...] pending, and I will contact you via [employer] once the results are available. - Your [...] Please continue to follow up with your PERSONNEL CLERKS SUPERVISOR and the diabetes care team for management. [...] your urine based on recent tests. Your PERSONNEL CLERKS SUPERVISOR will likely repeat a urine test at your next visit in 4 weeks. - Your hemoglobin, hematocrit, and red blood cell count were low on recent testing. Please follow up with your PERSONNEL CLERKS SUPERVISOR for further evaluation and management. Follow-Up Plan: - Please continue to follow up with your PERSONNEL CLERKS SUPERVISOR for routine care and gestational diabetes management. - Once your plasma metanephrines results are available, I will contact you via [employer]. - After your delivery, please message me to schedule imaging and blood work for follow-up on your SDHA mutation. If your blood work is normal, imaging can be deferred until 2025 or 2026. Wishing you a safe and healthy ! documented in this encounterSelect [facility]25 NoteHNO ID: [id number] Author: ROSY GALLAGHER MD Service: ? Author Type: Physician Type: Progress Notes Filed: 09/11/2024 09:23 Note Text: DATE: 09/11/2024 VIRTUAL VISIT PROGRESS NOTE This is a virtual visit using [employer] Zoom Video Visit. It required patient-provider interaction for the medical decision making as documented below. I have communicated my name and active licensure. The patient's identity and physical location were verified at the time of this visit. Either the patient or their legal corporate representative has been informed of the risks [...] She is under the care of her PERSONNEL CLERKS SUPERVISOR in [place] for GDM management. Despite dietary modifications, she [...] No Headaches: No Memory (more content not included)...[facility]06-16-[facility] History of Present illness Narrative* Rosy Gallagher MD - 09/11/2024 8:59 AM EDT DATE: 09/11/2024 VIRTUAL VISIT PROGRESS NOTE This is a virtual visit using [employer] Zoom Video Visit. It required patient- provider interaction for the medical decision making as documented below. I have communicated my name and active licensure. The patient's identity and physical location wereverified at the time of this visit. Either the patient or their legal corporate representative has been informed of the risks [...] She is under the care of her PERSONNEL CLERKS SUPERVISOR in [place] for GDM management. Despite dietary modifications, she [...] under the care of a specialist in [place] and is no longer taking Metformin since [...] the specialist weekly. - Follow up with PERSONNEL CLERKS SUPERVISOR for regular care and monitoring of GDM. TSH was 2.69 prior to conception but TPO Ab were negative. Rosy Gallagher MD, MPH Endocrinology documented in this encounterSelect Medical [facility]ty [facility]06-10-2025 Miscellaneous Notes* Telephone Encounter - Aranza Beltran [...] insulin and not metformin. documented in this encounterSCCI Hospital [facility]06-10-2025 Telephone encounter Note* Telephone Encounter - Aranza [...] will probably do insulin and not metformin. [facility] CenterPonominalu.ru Nboxbn61-01-2558 NoteHNO ID: [id number] Author: FRANKLIN LABOY MD Service: ? Author Type: Physician [...] are any new developments. Imaging: No SIGNATURE: Franklin Laboy MD PATIENT NAME: Lissa Rivas DATE: September 19, 2024 TIME: 3:28 [facility]06-10-2025 History of Present illness Narrative* Franklin Laboy MD - 09/05/2024 1:47 PM EDT [...] are any new developments. Imaging: No SIGNATURE: Franklin Laboy MD PATIENT NAME: Lissa Rivas DATE: September 19, 2024 TIME: 3:28 PM documented in this encounterSelect Medical Specialty [facility]06-05-2025 Group counseling note* Group Note - MUNIRA [...] Face to face time was 82 minutes. [employer] Work Phone: [phone]) 236-156406-05-2025 Miscellaneous Notes* Group Note - MUNIRA Torres [...] time was 82 minutes. documented in this encounterSCCI Hospital [facility]06-04-2025 History of Present illness Narrative* Kayla Ashley, LEXII - 08/30/2024 11:20 AM EDT [...] nursing note reviewed. Exam conducted with a director of marketing google performance ads present. Vitals: Estimated body mass index is [...] of: Saravanan Ahumada DO documented in this encounterMissouri Southern HealthcareYhexvdpgbm10-38-8549 History of Present illness Narrative* FLACA Kovacs [...] nursing note reviewed. Exam conducted with a director of marketing google performance ads present. 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 Metformin, previously prescribed for polycystic ovary syndrome [...] Date Anxiety Asthma LORA (generalized anxiety disorder) ([facility]) GERD (gastroesophageal reflux disease) Herpes simplex PCOS [...] since 04/2024. - No previous EKG performed; Ask Ziggy monitor will be ordered -order echo. - If heart rate exceeds 120 beats per minute for an extended period, further investigation will be warranted. Patient was seen and examined with Jie Davies CNP. History was confirmed and verified. Kelly elements of the exam were also completed. Assessment and plan were reviewed and addended as needed. Agree with documentation above. documented in this encounterMissouri Southern HealthcareUazgpcngzm42-32-4783 History of Present illness Narrative* Kayla Ashley LPN - 07/17/2024 10:40 AM [...] Date Anxiety Asthma LORA (generalized anxiety disorder) ([facility]) GERD (gastroesophageal reflux disease) Herpes simplex PCOS (polycystic ovarian syndrome) Seasonal allergies Social History Tobacco Use Smoking status: Never Smokeless tobacco: Never Vaping Use Vaping status: Never Used Substance Use Topics Alcohol use: Never Comment: Caffeine intake:less than 100 mg daily Drug use: Never Comment: Pain killers FAMILY HISTORY Family History Problem Relation Name Age of Onset Hypertension Mother Estee Other (SDHA) Mother Etsee Asthma Father Franklin Diabetes Father Franklin Heart [...] nursing note reviewed. Exam conducted with a director of marketing google performance ads present. Vitals: Estimated body mass index is 39.15 kg/m as calculated from the following: Height as of 2/25/25: 5' 3 . Weight as of 06/19/24: [...] during travel. Patient was prescribed medication from hammer setter and provider will reach out to patient [...] leaving that lotion that was prescribed by Seat Installer is safe to use, but not in large doses. PVU documented in this encounterMissouri Southern HealthcareVlonpciudy94-86-2597 History of Present illness Narrative* Marjorie Ferrer, NATANAEL - 05/23/2024 4:00 PM EST Images from the original note were not included. Subjective Patient ID: Lissa Rivas is a 29 y.o. 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 She has tried bmyu-bkb-ksvsrpr antifungal treatments without relief. Additionally she has [...] thickness today utilizing a nail Nipperand bur tool grinder operator external without incident. She will call us if [...] or corrected. Thank you for your understanding. Marjorie Ferrer DPM documented in this encounterMissouri Southern HealthcareNylyzztqkf62-82-7855 History of Present illness Narrative* Kayla Ashley LPN - 05/22/2024 8:50 AM EST [...] nursing note reviewed. Exam conducted with a director of marketing google performance ads present. Vitals: Estimated body mass index is [...] of: Saravanan Ahumada DO documented in this encounterMissouri Southern HealthcareBvskgybkjp02-89-1499 History of Present illness Narrative* Rosemary Hooper [...] nursing note reviewed. Exam conducted with a director of marketing google performance ads present. Vitals: Estimated body mass index is [...] by Rosemary Hooper MA documented in this encounterMissouri Southern HealthcareYkqystkvtw84-75-7002 History of Present illness Narrative* Rosemary Hooper [...] by: Rosemary Hooper MA documented in this encounterMissouri Southern HealthcareAocmxvsvck78-63-7448 NoteHNO ID: [id number] Author: GAGE MORRISSEY APRN.JORDAN Service: ? Author Type: Nurse [...] FHR: 119 Plan Move on to OB Gage Morrissey APRN.JORDAN 2024 4:34 [facility]01-06-2025 History of Present illness Narrative* Gage Morrissey APRN.JORDAN - 2024 4:34 PM EST [...] FHR: 119 Plan Move on to OB Gage Morrissey APRN.CNP 2024 4:34 PM documented in this encounterSelect Medical [facility]ty [facility]12-30-2024 History of Present illness Narrative* Cindy Dailey [...] drawn today. Appointments scheduled for OBUS in [place] office on 04/12 and with MJN on 05/01. 03/27/2024 3:01 PM documented in this encounterMissouri Southern HealthcareJujlmgfihi94-34-5960 Progress note* Fede Hairston MD - 03/20/2024 [...] Hysteroscopy Laparoscopy OPK (Ovulation Predictor Kit) [facility] [place] [facility] 10.91 High 01/04/2023 Saline Ultrasound Semen [...] visit. Either the patient or their legal corporate representative has been informed of the risks and benefits of -- and alternatives to -- treatment through a remote evaluation andconsents to proceed with the evaluation remotely. I spent a total of 30 minutes on the date of the service which included preparing to see the patient, tpkf-ke-uvuk patient care, counseling and educating the patient/family/caregiver, ordering medications, tests, or procedures, communicating results to the patient/family/caregiver, and care coordination (not separately reported). MD Kim Branch MD [facility]12-23-2024 Consult note* Fede Hairston MD - [...] used ocp since teenager. Was seen [facility] for PCOS and placed on metformin. [...] Hysteroscopy Laparoscopy OPK (Ovulation Predictor Kit) [facility] [place] [facility] 10.91 High 01/04/2023 Saline Ultrasound Semen [...] visit. Either the patient or their legal corporate representative has been informed of the risks and benefits of -- and alternatives to -- treatment through a remote evaluation andconsents to proceed with the evaluation remotely. I spent a total of 30 minutes on the date of the service which included preparing to see the patient, krkf-xd-gxyb patient care, counseling and educating the patient/family/caregiver, ordering medications, tests, or procedures, communicating results to the patient/family/caregiver, and care coordination (not separately reported). MD Kim Branch MD documented in this encounterSelect Medical Specialty [facility]12-20-2024 NoteHNO ID: [id number] Author: GAGE MORRISSEY APRN.CNP Service: ? Author Type: Nurse Practitioner Type: Progress Notes Filed: 03/17/2024 14:22 Note Text: REPRODUCTIVE ENDOCRINOLOGY AND INFERTILITY New SERVICE DATE: 03/17/2024 SERVICE TIME: 1:56 PM NAME: Lissa Rivas VIRTUAL VISIT PROGRESS NOTE This is a virtual visit. It required patient-provider interaction for the medical decision making as documented below. Patient name and birthday verified: Yes Location of patient: [place] Persons Present: patient I have communicated my name and active licensure. The patient's identity and physical location were verified at the time of this visit. Either the patient or their legal corporate representative has been informed of the risks [...] Schedule with OB: Scheduled with local OB Gage Morrissey APRN.CNP March 17, 2024 1:56 PM I spent a total of 20 minutes on the date of the service which included preparing to see the patient, qztx-gr-enfb patient care, completing clinical documentation, obtaining and/or [...] closest open slot. Call to patient needed: [facility]12-20-2024 History of Present illness Narrative* Gage Morrissey APRN.JORDAN - 03/17/2024 1:56 PM EST Images from the original note were not included. REPRODUCTIVE ENDOCRINOLOGY AND INFERTILITY New SERVICE DATE: 03/17/2024 SERVICE TIME: 1:56 PM NAME: Lissa Rivas VIRTUAL VISIT PROGRESS NOTE This is a virtual visit. It required patient-provider interaction for the medical decision making as documented below. Patient name and birthday verified: Yes Location of patient: [place] Persons Present: patient I have communicated my name and active licensure. The patient's identity and physical location wereverified at the time of this visit. Either the patient or their legal corporate representative has been informed of the risks [...] Schedule with OB: Scheduled with local OB Gage Morrissey APRN.CNP March 17, 2024 1:56 PM I spent a total of 20 minutes on the date of the service which included preparing to see the patient, wugq-hz-clir patient care, completing clinical documentation, obtaining and/or [...] to patient needed: no documented in this encounterSelect Medical Specialty [facility]12-16-2024 Telephone encounter Note * Telephone Encounter - Gage Morrissey APRN.CNP - 03/13/2024 1:22 PM EST [...] Morrissey APRN.CNP March 13, 2024 1:37 PM [facility]12-16-2024 Miscellaneous Notes* Telephone Encounter - Gage Morrissey APRN.CNP - 03/13/2024 1:22 PM EST [...] ordered: HCG x2 FYI Dr. Bill Morrissey APRN.JUKEBOX CHECKER March 13, 2024 1:37 PM * Telephone Encounter - Ayanna Wise - 03/13/2024 11:55 AM EST Patient states she skipped this month and has +hpt, please follow up with patient. documented in this encounterSelect Medical Specialty [facility]12-16-2024 Telephone encounter Note * Telephone Encounter - Ayanna Wise - 03/13/2024 11:55 AM EST Patient states she skipped this month and has +hpt, please follow up with patient. [facility] Work Phone: 1(406) 702-323912-11-2024 History of Present illness Narrative* Usha Blackwell DO - 03/08/2024 10:30 AM EST [...] Use: Not At Risk (02/15/2024) [facility]C Frequency of Alcohol Consumption: Never [...] and 96% in the left ear. Speech software trainer threshold is 10 dB in the right ear and 5 dB in the left ear. Procedure: [] Usha Blackwell DO documented in this [facility] Work Phone: 1(761) 125-327712-02-2024 Telephone encounter Note* Telephone Encounter - Gage Morrissey APRN.CNP - 02/28/2024 11:47 AM EST [...] daily. Menstrual cycle day 3-7 Authorizing Provider: GAGE MORRISSEY APRN.CNP February 28, 2024 11:54 AM [facility]12-02-2024 Miscellaneous Notes* Telephone Encounter - Gage Morrissey APRN.CNP - 02/28/2024 11:47 AM EST [...] daily. Menstrual cycle day 3-7 Authorizing Provider: GAGE MORRISSEY APRN.CNP February 28, 2024 11:54 AM * Telephone Encounter - Joanna Garces - 02/28/2024 8:22 AM EST Pt is not financially clear yet should she still schedule it after she pays documented in this encounterSelect Medical [facility]12-02-2024 Telephone encounter Note * Telephone Encounter - Reina DurgaJoanna - 02/28/2024 8:22 AM EST Pt is not financially clear yet should she still schedule it after she pays [facility]11-27-2024 NoteHNO ID: [id number] Author: GAGE MORRISSEY APRN.JORDNA Service: ? Author Type: Nurse Practitioner Type: Progress Notes Filed: 02/23/2024 13:56 Note Text: Lissa Rivas is here today for a midcycle scan. Lead follicle: 11 Plan: repeat scan 02/24 Gage Morrissey APRN.CNP February 23, 2024 1:54 PM Please schedule the patient for the following- Location: D Provider: Nurse Visit type: midcycle Reason for visit/appointment notes: midcycle Date: 02/24 Time (requested): 0730 If slot is full, please schedule the closest open slot. Call to patient needed: [facility]11-27-2024 NoteHNO ID: [id number] Author: PAULA HESTER RN Service: ? Author [...] Paula Hester RN February 23, 2024 7:46 [facility]11-27-2024 History of Present illness Narrative* Paula [...] 23, 2024 7:46 AM documented in this encounterSelect Medical Specialty [facility]11-25-2024 Telephone encounter Note * Telephone Encounter - Gage Morrissey APRN.CNP - 02/21/2024 10:38 AM EST Medication send the CS specialty on 02/17. Gage Morrissey APRN.CNP February 21, 2024 10:39 AM [facility]11-25-2024 Miscellaneous Notes* Telephone Encounter - Gage Morrissey APRN.CNP - 02/21/2024 10:38 AM EST Medication send the CS specialty on 02/17. Gage Morrissey APRN.CNP February 21, 2024 10:39 AM * Telephone Encounter - Joanna Garces - 02/21/2024 10:31 AM EST [facility] documented in this encounterSelect Medical Specialty [facility]11-25-2024 Telephone encounter Note * Telephone Encounter - Joanna Garces - 02/21/2024 10:31 AM EST Needs hcg [facility]-21-2024 Plan of care note* GAYATHRI Plan Note [...] visit. Either the patient or their legal corporate representative has been informed of the risks and benefits of -- and alternatives to -- treatment through a remote evaluation andconsents to proceed with the evaluation remotely. I spent a total of 30 minutes on the date of the service which included preparing to see the patient, amrc-nz-wava patient care, counseling and educating the patient/family/caregiver, ordering medications, tests, or procedures, communicating results to the patient/family/caregiver, and care coordination (not separately reported). Kim Khan MD [facility]11-21-2024 Miscellaneous Notes* GAYATHRI Plan Note - Fede [...] visit. Either the patient or their legal corporate representative has been informed of the risks and benefits of -- and alternatives to -- treatment through a remote evaluation andconsents to proceed with the evaluation remotely. I spent a total of 30 minutes on the date of the service which included preparing to see the patient, aung-vq-mlqr patient care, counseling and educating the patient/family/caregiver, ordering medications, tests, or procedures, communicating results to the patient/family/caregiver, and care coordination (not separately reported). Kim Khan MD documented in this encounterSelect Medical Specialty [facility]11-19-2024 History of Present illness Narrative* Adilene Ford MA - 02/15/2024 3:15 PM EST Images from the original note were not included. Vero Goldsmith, DO Obstetrics and Gynecology Lissa Rivas 1995 02/15/24 [id number] Yearly Wellness Exam Chief Complaint Patient presents [...] angle tenderness, no obvious scoliosis/kyphosis. 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 She works from home for [employer]. Entered by Adilene Ford MA acting as scribe for Dr. Vero Goldsmith. Signature Adilene Ford MA Date 02/15/24 . Time 3:12 PM . The documentation recorded by the scribe accurately reflects the service(s) I personally performed and the decisions I made. Signature Jordan Goldsmith D.O. Date 02/15/24 Time 5:00PM. documented in this encounterMissouri Southern HealthcareQwcygbasjx22-04-8797 Telephone encounter Note* Telephone Encounter - Gage Morrissey APRN.CNP - 02/15/2024 12:55 PM EST Spoke with Thao, states she was using OPKs last cycle and never got an LH surge. Had two weeks of high fertility but no peak. Cycle was normal length LMP 02/12 Would like to do monitoring/trigger this cycle. Flowsheet/Episode updated. Gage Morrissey APRN.CNP February 15, 2024 1:49 PM Please schedule the patient for the following- Location: [facility] Provider: nurse Visit type: midcycle Reason for visit/appointment notes: midcycle Date: 02/22 Time (requested): 0700 If slot is full, please schedule the closest open slot. Call to patient needed: no [facility]11-19-2024 Miscellaneous Notes* Telephone Encounter - Gage Morrissey APRN.CNP - 02/15/2024 12:55 PM EST Spoke with Thao, states she was using OPKs last cycle and never got an LH surge. Had two weeks of high fertility but no peak. Cycle was normal length LMP 02/12 Would like to do monitoring/trigger this cycle. Flowsheet/Episode updated. Gage Morrissey APRN.CNP February 15, 2024 1:49 PM [...] follow up with patient. documented [facility] Telephone encounter Note * Telephone Encounter - Ayanna Wise - 02/15/2024 11:36 AM EST Patient states this past month in January she did not ovulate so she did not go through with iui, please follow up with patient. [facility] Work Phone: [phone] Telephone encounter Note* Telephone Encounter - Gage Morrissey APRN.CNP - 01/14/2024 4:15 PM EDT Spoke with Lissa, She is planning to use OPK only this cycle. Jeferson call with LH surge. Gage Morrissey APRN.CNP January 14, 2024 4:17 PM [facility]10-18-2024 Miscellaneous Notes* Telephone Encounter - Gage Morrissey APRN.CNP - 01/14/2024 4:15 PM EDT Spoke with Lissa, She is planning to use OPK only this cycle. Jeferson call with LH surge. Gage Morrissey APRN.CNP January 14, 2024 4:17 PM * Telephone Encounter - Keren Carcamo - 01/14/2024 9:03 AM EDT Pt started cycle 01/12 and would like to discuss plan for scheduling iui documented in this [facility] Telephone encounter Note * Telephone Encounter - Keren Carcamo - 01/14/2024 9:03 AM EDT Pt started cycle 01/12 and would like to discuss plan for scheduling iui [facility]10-04-2024 NoteHNO ID: [id number] Author: GAGE MORRISSEY APRN.CNP Service: ? Author Type: Nurse Practitioner Type: Procedures Filed: 12/31/2023 10:26 Note Text: WHI GAYATHRI IUI PROCEDURE NOTE Date: 12/31/2023 Primary Proceduralist: Gage Morrissey APRN.CNP Consents and Labels Consent Signed: Informed Consent obtained and on the chart Labels Verified With Patient: Yes Indications: Lissa Rivas, is a 28 year old female here today for intrauterine insemination. IUI # Series 1 Cycle 3. Cycle Day: 20 Last menstrual period: 12/12/2023 Watch[place] Protocol: UNIVERSAL PROTOCOL / SAFETY CHECKLIST Procedure [...] Plan of Care Visit completed when applicable. Gage Morrissey APRN.CNP IUI IUI Date: 12/31/23 Partner's [...] no menses and call with results. SIGNATURE: Gage Morrissey APRN.CNP PATIENT NAME: Lissa Rivas DATE: December 31, 2023 TIME: 10:25 [facility]10-04-2024 Procedure note* Gage Morrissey APRN.CNP - 12/31/2023 10:25 AM EDT WHI GAYATHRI IUI PROCEDURE NOTE Date: 12/31/2023 Primary Proceduralist: Gage Morrissey APRN.CNP Consents and Labels Consent Signed: Informed Consent obtained and on the chart Labels Verified With Patient: Yes Indications: Lissa Rivas, is a 28 year old female here today for intrauterine insemination. IUI # Series 1 Cycle 3. Cycle Day: 20 Last menstrual period: 12/12/2023 [place] Protocol: UNIVERSAL PROTOCOL / SAFETY CHECKLIST Procedure [...] Plan of Care Visit completed when applicable. Gage Morrissey APRN.CNP IUI IUI Date: 12/31/23 Partner's [...] no menses and call with results. SIGNATURE: Gage Morrissey APRN.CNP PATIENT NAME: Lissa Rivas DATE: December 31, 2023 TIME: 10:25 AM [facility]10-04-2024 Procedure note* Gage Morrissey APRN.CNP - 12/31/2023 10:25 AM EDT WHI GAYATHRI IUI PROCEDURE NOTE Date: 12/31/2023 Primary Proceduralist: Gage Morrissey APRN.CNP Consents and Labels Consent Signed: Informed Consent obtained and on the chart Labels Verified With Patient: Yes Indications: Lissa Rivas, is a 28 year old female here today for intrauterine insemination. IUI # Series 1 Cycle 3. Cycle Day: 20 Last menstrual period: 12/12/2023 [place] Protocol: UNIVERSAL PROTOCOL / SAFETY CHECKLIST Procedure [...] Plan of Care Visit completed when applicable. Gage Morrissey APRN.CNP IUI IUI Date: 12/31/23 Partner's [...] no menses and call with results. SIGNATURE: Gage Morrissey APRN.CNP PATIENT NAME: Lissa Rivas DATE: December 31, 2023 TIME: 10:25 AM documented in this [facility] Nurse Note* Domenica Coon MA - 12/31/2023 10:07 AM EDT Lead Dental Assistant offered: Patient declines. [facility]10-04-2024 Nurse Note* Domenica Coon MA - 12/31/2023 10:07 AM EDT Lead Dental Assistant offered: Patient declines. documented in this encounterSelect [facility] History of Present illness Narrative* Robin Grewal [...] plan provided to patient via a Fertility membership sales advisor. Kim Khan MD documented in this encounterSelect [facility]-2024 NoteHNO ID: [id number] Author: ROBIN GREWAL RN Service: ? Author Type: Registered Nurse Type: Progress Notes Filed: 12/21/2023 14:32 Note Text: pt using LH surge strips and will call to irvin Grewal RN December 21, 2023 2:32 [facility]09-24-2024 NoteHNO ID: [id number] Author: FEDE HAIRSTON MD Service: ? Author [...] plan provided to patient via a Fertility membership sales advisor. Kim Khan [facility]09-16-2024 Telephone encounter Note* Telephone Encounter - Gage Morrissey APRN.CNP - 12/13/2023 4:41 PM EDT [facility] 12/11 Plan: Let 5mg, trigger, IUI#2 Flowsheet/episode created Gage Morrissey APRN.CNP December 13, 2023 4:42 PM Please schedule the patient for the following- Location: [place] Provider: Nurse Visit type: Midcycle Reason for visit/appointment notes: Midcycle Date: 12/20 Time (requested): 730 If slot is full, please schedule the closest open slot. Call to patient needed: no [facility]09-16-2024 Miscellaneous Notes* Telephone Encounter - Gage Morrissey APRN.CNP - 12/13/2023 4:41 PM EDT [facility] 12/11 Plan: Let 5mg, trigger, IUI#2 Flowsheet/episode created Gage Morrissey APRN.CNP December 13, 2023 4:42 PM Please schedule the patient for the following- Location: [place] Provider: Nurse Visit type: Midcycle Reason for visit/appointment notes: Midcycle Date: 12/20 Time (requested): 730 If slot is full, please schedule the closest open slot. Call to patient needed: no documented in this encounterSelect [facility]-01-2024 NoteHNO ID: [id number] Author: EVANGELINA PAINTER, ? Service: ? Author Type: Presser Automatic Type: Progress Notes Filed: 11/28/2023 11:00 Note Text: IUI Pre: 72 M/ml, 63% Post: 73 M/ml, 88% [facility] History of Present illness Narrative* Evangelina Painter - 11/28/2023 10:59 AM EDT IUI Pre: 72 M/ml, 63% Post: 73 M/ml, 88% Insem # 44.8 million * Evangelina Painter - 11/28/2023 10:48 AM EDT IUI specimen released to provider Evangelina Painter November 28, 2023 10:48 AM documented in this encounterSelect [facility]-01-2024 NoteHNO ID: [id number] Author: DESHAWN RIOJAS MD Service: ? Author [...] Cycle Day: 13 Last menstrual period: 11/12/2023 [place] Protocol: UNIVERSAL PROTOCOL / SAFETY CHECKLIST Procedure [...] Rivas DATE: November 28, 2023 TIME: 10:52 [facility]09-01-2024 Procedure note* Deshawn Riojas MD - [...] Cycle Day: 13 Last menstrual period: 11/12/2023 [place] Protocol: UNIVERSAL PROTOCOL / SAFETY CHECKLIST Procedure [...] DATE: November 28, 2023 TIME: 10:52 AM [facility]09-01-2024 Procedure note* Deshawn Riojas MD - 11/28/2023 [...] Cycle Day: 13 Last menstrual period: 11/12/2023 [place] Protocol: UNIVERSAL PROTOCOL / SAFETY CHECKLIST Procedure [...] 2023 TIME: 10:52 AM documented in this encounterSelect [facility]-2024 NoteHNO ID: [id number] Author: EVANGELINA PAINTER, ? Service: ? Author Type: Presser Automatic Type: Progress Notes Filed: 11/28/2023 10:54 Note Text: IUI specimen released to provider Evangelina Painter November 28, 2023 10:48 [facility]08-26-2024 NoteHNO ID: [id number] Author: GAGE MORRISSEY APRN.JORDAN Service: ? Author Type: Nurse [...] birthday verified: Yes Location of patient: [place] Persons Present: patient I have communicated my name and active licensure. The patient's identity and physical location were verified at the time of this visit. Either the patient or their legal corporate representative has been informed of the risks [...] Once starting progesterone had intense mood swings/irritability [place] heart was beating slower than normal but [...] with trigger, will schedule IUI as instructed Gage Morrissey APRN.JUKEBOX CHECKER November 22, 2023 2:33 PM I spent a total of 20 minutes on the date of the service which included preparing to see the patient, [id number] patient care, completing clinical documentation, obtaining and/or [...] be grammatical and typographical errors missed in proofreading.[facility]08-26-[facility] History of Present illness Narrative* Gage Morrissey APRN.JUKEBOX CHECKER - 11/22/2023 2:33 PM EDT Images from the original note were not included. REPRODUCTIVE ENDOCRINOLOGY AND INFERTILITY VIRTUAL VISIT PROGRESS NOTE SERVICE DATE: 11/22/2023 SERVICE TIME: 2:33 PM NAME: Lissa Rivas VIRTUAL VISIT PROGRESS NOTE This is a virtual visit. It required patient-provider interaction for the medical decision making as documented below. Patient name and birthday verified: Yes Location of patient: [place] Persons Present: patient I have communicated my name and active licensure. The patient's identity and physical location wereverified at the time of this visit. Either the patient or their legal corporate representative has been informed of the risks [...] Once starting progesterone had intense mood swings/irritability [place] heart was beating slower than normal but [...] with trigger, will schedule IUI as instructed Gage Morrissey APRN.JORDAN November 22, 2023 2:33 PM I spent a total of 20 minutes on the date of the service which included preparing to see the patient, [id number] patient care, completing clinical documentation, obtaining and/or [...] errors missed in proofreading. documented in this encounterSelect [facility]-26-2024 NoteHNO ID: [id number] Author: ERMA DONIS RN Service: ? Author [...] called patient. She will drive back to [place] now to get done. Erma Donis RN [...] RN November 22, 2023 12:53 [facility]08-26-2024 History of Present illness Narrative* Erma [...] called patient. She will drive back to [place] now to get done. Erma Donis RN [...] 22, 2023 12:53 PM documented in this encounterSelect [facility]-2024 Telephone encounter Note * Telephone Encounter - Gage Morrissey APRN.CNP - 11/15/2023 9:39 AM EDT Plan: Let 5mg/trigger/IUI #2 Gage Morrissey APRN.CNP November 15, 2023 9:39 AM Please schedule the patient for the following- Location: [place] Provider: Nurse Visit type: Follicular scan Reason for visit/appointment notes: Follicular scan Date: 11/21 Time (requested): 0715 If slot is full, please schedule the closest open slot. Call to patient needed: no [facility]08-19-2024 Miscellaneous Notes* Telephone Encounter - Gage Morrissey APRN.CNP - 11/15/2023 9:39 AM EDT Plan: Let 5mg/trigger/IUI #2 Gage Morrissey APRN.CNP November 15, 2023 9:39 AM Please schedule the patient for the following- Location: [place] Provider: Nurse Visit type: Follicular scan Reason [...] pt started cycle 11/11 documented in this encounterSelect [facility]-2024 Telephone encounter Note * Telephone Encounter - Madeleine Orta PA-C - 11/12/2023 6:07 PM EDT Patient is planning IUI. FYI: [employer]. Please see the checklist Madeleine Orta PA-C November 12, 2023 6:07 PM [facility] Work Phone: [phone] Telephone encounter Note* Telephone Encounter - Keren Carcamo - 11/12/2023 1:55 PM EDT Pt had iui 10/25 , pt had negative preg 8/13 or 8/14 , pt started cycle 11/11 [facility]07-30-2024 Telephone encounter Note* Telephone Encounter - Gage Morrissey APRN.CNP - 10/26/2023 1:51 PM EDT [...] seven days of my reply. See the [employer] message reply for my assessment and plan. I spent a total of 5 minutes reviewing the patient's prior medical records and current request for medical advice, prescribing medications or ordering tests (if applicable), replying to the patient, and documenting the encounter. [facility]07-30-2024 Miscellaneous Notes* Telephone Encounter - Gage Morrissey APRN.CNP - 10/26/2023 1:51 PM EDT [...] seven days of my reply. See the [employer] message reply for my assessment and plan. I spent a total of 5 minutes reviewing the patient's prior medical records and current request for medical advice, prescribing medications or ordering tests (if applicable), replying to the patient, and documenting the encounter. documented in this encounterSelect [facility]07-30-2024 NoteHNO ID: [id number] Author: GAGE MORRISSEY APRN.CNP Service: ? Author Type: Nurse Practitioner Type: Procedures Filed: 10/26/2023 11:37 Note Text: WHI GAYATHRI IUI PROCEDURE NOTE Date: 10/26/2023 Primary Proceduralist: Gage Morrissey APRN.CNP Consents and Labels Consent Signed: Informed Consent obtained and on the chart Labels Verified With Patient: Yes Indications: Lissa Rivas, is a 28 year old female here today for intrauterine insemination. IUI # Series 1 Cycle 1. Cycle Day: 15 Last menstrual period: 10/12/2023 [place] Protocol: UNIVERSAL PROTOCOL / SAFETY CHECKLIST Procedure [...] Plan of Care Visit completed when applicable. Gage Morrissey APRN.CNP IUI IUI Date: 10/26/23 Partner's [...] no menses and call with results. SIGNATURE: Gage Morrissey APRN.CNP PATIENT NAME: Lissa Rivas DATE: October 26, 2023 TIME: 11:36 [facility]07-30-2024 Procedure note* Gage Morrissey APRN.CNP - 10/26/2023 11:36 AM EDT WHI GAYATHRI IUI PROCEDURE NOTE Date: 10/26/2023 Primary Proceduralist: Gage Morrissey APRN.CNP Consents and Labels Consent Signed: Informed Consent obtained and on the chart Labels Verified With Patient: Yes Indications: Lissa Rivas, is a 28 year old female here today for intrauterine insemination. IUI # Series 1 Cycle 1. Cycle Day: 15 Last menstrual period: 10/12/2023 [place] Protocol: UNIVERSAL PROTOCOL / SAFETY CHECKLIST Procedure [...] Plan of Care Visit completed when applicable. Gage Morrissey APRN.CNP IUI IUI Date: 10/26/23 Partner's [...] no menses and call with results. SIGNATURE: Gage Morrissey APRN.CNP PATIENT NAME: Lissa Rivas DATE: October 26, 2023 TIME: 11:36 AM [facility]07-30-2024 Procedure note* Gage Morrissey APRN.CNP - 10/26/2023 11:36 AM EDT WHI GAYATHRI IUI PROCEDURE NOTE Date: 10/26/2023 Primary Proceduralist: Gage Morrissey APRN.CNP Consents and Labels Consent Signed: Informed Consent obtained and on the chart Labels Verified With Patient: Yes Indications: Lissa Rivas, is a 28 year old female here today for intrauterine insemination. IUI # Series 1 Cycle 1. Cycle Day: 15 Last menstrual period: 10/12/2023 [place] Protocol: UNIVERSAL PROTOCOL / SAFETY CHECKLIST Procedure [...] Plan of Care Visit completed when applicable. Gage Morrissey APRN.CNP IUI IUI Date: 10/26/23 Partner's [...] no menses and call with results. SIGNATURE: Gage Morrissey APRN.CNP PATIENT NAME: Lissa Rivas DATE: October 26, 2023 TIME: 11:36 AM documented in this encounterSelect [facility]07-26-2024 NoteHNO ID: [id number] Author: JASON TREVIZO MD Service: ? Author Type: Physician Type: Progress Notes Filed: 10/22/2023 23:02 Note Text: GAYATHRI Attending Physician Note: Ultrasound and lab results reviewed. Based on review of ultrasound and lab results, medication dose and follow up date plans provided. See cycle flowsheet for dosing details. Jason Trevizo MD, [facility]07-26-2024 NoteHNO ID: [id number] Author: ERMA DONIS RN Service: ? Author Type: Registered Nurse Type: Progress Notes Filed: 10/22/2023 13:41 Note Text: iLssa Rivas is here today for a midcycle scan. Lead follicle: 14 Erma Donis RN October 22, 2023 7:25 AM RN called patient, name and verified. Plan given for midcycle per physician, see flowsheet for details. MyChart message sent. Medications reviewed and verified, instructions given. Patient denies any questions or concerns. Erma Donis RN October 22, 2023 1:[facility] History of Present illness Narrative* [...] instructions given. Patient deniesany questions or concerns. rEma Donis RN October 22, 2023 1:38 PM documented in this encounterSelect [facility]-2024 Telephone encounter Note * Telephone Encounter - Yoav Stovall APRN.CNP - 10/20/2023 3:10 PM EDT patient instructed to order trigger now so that she has it by Wednesday Yoav Stovall APRN.CNP October 20, 2023 3:10 PM [facility]07-24-2024 Miscellaneous Notes* Telephone Encounter - Yoav Stovall APRN.CNP - 10/20/2023 3:10 PM EDT patient instructed to order trigger now so that she has it by Wednesday Yoav Stovall APRN.CNP October 20, 2023 3:10 PM * Telephone Encounter - Keren Carcamo - 10/20/2023 2:26 PM EDT Pts pharmacy called and would like to know when she needs to order trigger shot documented in this encounterSelect [facility]-2024 Telephone encounter Note * Telephone Encounter - Keren Carcamo - 10/20/2023 2:26 PM EDT Pts pharmacy called and would like to know when she needs to order trigger shot [facility]07-16-2024 Telephone encounter Note* Telephone Encounter - Gage Morrissey APRN.CNP - 10/12/2023 4:10 PM EDT The following approved medication requests have been transmitted electronically. Requested Prescriptions Signed Prescriptions Disp Refills Choriogonadotropin Pam,HumRec (OVIDREL) 250 mcg/0.5 mL syrg 0.5 mL 1 Sig: Inject 250 mcg subcutaneously one time only for 1 dose. Authorizing Provider: GAGE MORRISSEY APRN.CNP October 12, 2023 4:10 PM [facility]07-16-2024 Miscellaneous Notes* Telephone Encounter - Gage Morrissey APRN.CNP - 10/12/2023 4:10 PM EDT The following approved medication requests have been transmitted electronically. Requested Prescriptions Signed Prescriptions Disp Refills Choriogonadotropin Pam,HumRec (OVIDREL) 250 mcg/0.5 mL syrg 0.5 mL 1 Sig: Inject 250 mcg subcutaneously one time only for 1 dose. Authorizing Provider: GAGE MORRISSEY APRN.CNP October 12, 2023 4:10 PM * Telephone Encounter - Randee Myers RN - 10/12/2023 2:28 PM EDT Called the patient she verified her name and date of period started today has letrozole needstrigger shot Randee Myers RN October 12, 2023 2:30 PM Flowsheet done Please schedule the patient for the following- Location: [place] Provider: nurse Visit type: mid cycle Reason for visit/appointment notes: mid cycle non ivf Date: 10-22-23 Time (requested): 0700 If slot is full, please schedule the closest open slot. Call to patient needed: no * Telephone Encounter - Ayanna Wise - 10/12/2023 1:31 PM EDT Patient states she also needs information regarding trigger shot. Please call patient. documented in this encounterSelect [facility]-2024 Telephone encounter Note * Telephone Encounter - Randee Myers RN - 10/12/2023 2:28 PM EDT Called the patient she verified her name and date of period started today has letrozole needstrigger shot Randee Myers RN October 12, 2023 2:30 PM Flowsheet done Please schedule the patient for the following- Location: [place] Provider: nurse Visit type: mid cycle Reason for visit/appointment notes: mid cycle non ivf Date: 10-22-23 Time (requested): 0700 If slot is full, please schedule the closest open slot. Call to patient needed: no [facility]07-16-2024 Telephone encounter Note* Telephone Encounter - Ayanna Wise - 10/12/2023 1:31 PM EDT Patient states she also needs information regarding trigger shot. Please call patient. [facility] Work Phone: [phone]) 857-978406-14-2024 History of Present illness Narrative* Gage Morrissey APRN.CNM - 09/10/2023 2:56 PM EDT Images from the original note were not included. REPRODUCTIVE ENDOCRINOLOGY AND INFERTILITY IUI TEACH SERVICE DATE: 09/10/2023 SERVICE TIME: 2:56 PM NAME: Lissa Rivas VIRTUAL VISIT PROGRESS NOTE This is a virtual visit. It required patient-provider interaction for the medical decision making as documented below. Patient name and birthday verified: Yes Location of patient: [place] Persons Present: patient I have communicated my name and active licensure. The patient's identity and physical location wereverified at the time of this visit. Either the patient or their legal corporate representative has been informed of the risks and benefits of -- and alternatives to -- treatment through a remote evaluation andconsents to proceed with the evaluation remotely. Reason for visit: IUI Teach [facility] Primary GAYATHRI Physician: Dr. Khan IUI Treatment Plan: Letrozole 5mg/trigger/IUI Partner's name/MRN: Brenton [id number] LMP: 07/23 IUI Checklist: Consultation: Done Registration of patient and partner: Done Financial Clearance: In process IUI Patient Education: ASRM IUI Patient Fact Sheet IUI Consent Form: sent today via [employer] Orders: filed today Medications ordered today Screening [...] Count Sperm M 592.20 % Motile Sperm (%TX + %BOOKING PRIZER) >=40 % 64 Forward Progression 4 = [...] begin provera if progesterone and HCG low/neg Gage Morrissey APRN.CNM September 10, 2023 2:56 PM I spent a total of 40 minutes on the date of the service which included preparing to see the patient, [id number] patient care, completing clinical documentation, obtaining and/or [...] errors missed in proofreading. documented in this encounterSelect [facility]-2024 Telephone encounter Note * Telephone Encounter - Gage Morrissey APRN.CNM - 09/09/2023 9:07 AM EDT The following approved medication requests have been transmitted electronically. Requested Prescriptions Signed Prescriptions Disp Refills medroxyPROGESTERone (PROVERA) 10 mg tablet 10 tablet 0 Sig: Take 1 tablet by mouth once daily. Authorizing Provider: GAGE MORRISSEY APRN.CNM September 09, 2023 9:07 AM [facility]-13-2024 Miscellaneous Notes* Telephone Encounter - Gage Morrissey APRN.CNM - 09/09/2023 9:07 AM EDT The following approved medication requests have been transmitted electronically. Requested Prescriptions Signed Prescriptions Disp Refills medroxyPROGESTERone (PROVERA) 10 mg tablet 10 tablet 0 Sig: Take 1 tablet by mouth once daily. Authorizing Provider: GAGE MORRISSEY APRN.CNM September 09, 2023 9:07 AM [...] <5.0 mIU/mL <0.6 * Telephone Encounter - Gage Spivey - 09/08/2023 9:58 AM EDT Iui Patient called in regards to her lab results documented in this encounterSelect [facility] Telephone encounter Note * Telephone Encounter - [...] 0.2 hCG Quantitative, Blood <5.0 mIU/mL <0.6 [facility]06-12-2024 Telephone encounter Note* Telephone Encounter - Gage Spivey - 09/08/2023 9:58 AM EDT Iui Patient called in regards to her lab results [facility]06-06-2024 Telephone encounter Note* Telephone Encounter - Amparo [...] Mcclellan RN September 02, 2023 1:11 PM [facility]06-06-2024 Miscellaneous Notes* Telephone Encounter - Amparo Mcclellan [...] follow up with patient. documented in this encounter[facility] Telephone encounter Note * Telephone Encounter - [...] Mcclellan RN September 02, 2023 11:41 AM [facility]06-06-2024 Telephone encounter Note* Telephone Encounter - Ayanna Wise - 09/02/2023 10:53 AM EDT Please follow up with patient. [facility] Work Phone: 1(493) 412-579305-23-2024 Progress note* Fede Hairston MD - 08/19/2023 11:11 AM EDT [facility] Date: 08/19/2023 Consultation [...] appointment with cancer genetic team soon. 5. Wordster - test neg for all mutations. Initial [...] Hysteroscopy Laparoscopy OPK (Ovulation Predictor Kit) Ovarian [place] [facility] 10.91 High 01/04/2023 Saline Ultrasound Semen [...] GENETIC HISTORY: no OCCUPATION/EXERCISE: Occupation: [employer] and [employer] Exercise: daily walking Partner Information Partner's Name: [...] aware that she needs to meet with JUANITA for IUI teach. GAYATHRI IUI Treatment Plan: [...] visit. Either the patient or their legal corporate representative has been informed of the risks and benefits of -- and alternatives to -- treatment through a remote evaluation andconsents to proceed with the evaluation remotely. I spent a total of 30 minutes on the date of the service which included preparing to see the patient, [id number]-jwtj patient care, completing clinical documentation, counseling and educating the patient/family/caregiver, ordering medications, tests, or procedures, communicating results to the patient/ family/caregiver, and care coordination (not separately reported). Kim Khan MD T [facility]05-23-2024 Consult note* Fede Hairston MD - 08/19/2023 11:11 AM EDT [facility] Date: 08/19/2023 Consultation [...] Hysteroscopy Laparoscopy OPK (Ovulation Predictor Kit) Ovarian [place] [facility] 10.91 High 01/04/2023 Saline Ultrasound Semen [...] no OCCUPATION/EXERCISE: Occupation: [employer] / [employer] Exercise: daily walking Partner Information Partner's Name: [...] aware that she needs to meet with JUANITA for IUI teach. GAYATHRI IUI Treatment Plan: [...] visit. Either the patient or their legal corporate representative has been informed of the risks and benefits of -- and alternatives to -- treatment through a remote evaluation andconsents to proceed with the evaluation remotely. I spent a total of 30 minutes on the date of the service which included preparing to see the patient, qcoz-wi-jmcd patient care, completing clinical documentation, counseling and educating the patient/family/caregiver, ordering medications, tests, or procedures, communicating results to the patient/ family/caregiver, and care coordination (not separately reported). Kim Khan MD documented in this encounter[facility] Plan of care note* GAYATHRI Plan Note [...] aware that she needs to meet with JUANITA for IUI teach. GAYATHRI IUI Treatment Plan: Patient summary: Tubal Patency Testing: HSG date: 2023 bilat tubal patency. Sperm Source:Partner Frozen Treatment Protocol: Letrozole dose 5 mg Monitoring Plan: Ultrasound monitoring CD 10-12 Ovidrel Trigger: Yes Supplemental Progesterone: Prometrium 200 mg per vagina daily Comments: None Kim Khan MD 08/19/2023 [facility]05-23-2024 Miscellaneous Notes* GAYATHRI Plan Note - Fede [...] aware that she needs to meet with JUANITA for IUI teach. GAYATHRI IUI Treatment Plan: Patient summary: Tubal Patency Testing: HSG date: 2023 bilat tubal patency. Sperm Source:Partner Frozen Treatment Protocol: Letrozole dose 5 mg Monitoring Plan: Ultrasound monitoring CD 10-12 Ovidrel Trigger: Yes Supplemental Progesterone: Prometrium 200 mg per vagina daily Comments: None Kim Khan MD 08/19/2023 documented in this encounterSelect [facility] History of Present illness Narrative* Franklin Laboy MD - 08/17/2023 10:52 AM EDT [...] while trying for , who presents to [facility] care. Her genetic testing indicates she [...] Procedure was performed under supervision of Dr. Franklin Laboy PERTINENT LABS: 06/17/23 Metanephrine: 37 PERTINENT [...] while trying for , who presents to [facility] care. 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 Exam today negative for any head and neck lesions. Imaging was negative for any suspicious nodules or masses. Plan: - Return to clinic in [address] neck, chest, and imaging - Labs per endocrinology SIGNATURE: Julita Rosario MD for the service of Dr. Franklin Laboy PATIENT NAME: Lissa Rivas DATE: August 17, 2023 TIME: 10:53 AM I participated in the history and physical exam of Lissa Rivas. I discussed the management of Lissa Rivas with the resident. I reviewed the resident's note and agree with the documented findings and plan of care. Franklin Laboy MD documented in this encounterSelect [facility] Nurse Note* Raina Samuels CT - 08/17/2023 10:47 AM EDT Tobacco Use: Never Was smoking cessation packet given? N/A - Patient is a non-smoker or quit >1 year ago. Was a referral initiated?N/A Patient is a non-smoker [facility]05-21-2024 Nurse Note* Raina Samuels CT - 08/17/2023 10:47 AM EDT Tobacco Use: Never Was smoking cessation packet given? N/A - Patient is a non-smoker or quit >1 year ago. Was a referral initiated?N/A Patient is a non-smoker documented in this encounterSelect [facility] History of Present illness Narrative* Rosy Gallagher MD - 08/17/2023 10:04 AM EDT [...] with appropriate care providers in Endocrinology (Dr. Rosy Gallagher) and Otolaryngology (Dr. Franklin Laboy) to review medical management options and [...] We will communicate via my chart . Rosy Gallagher MD, MPH Endocrinology documented in this encounterSelect [facility] Instructions* Patient Instructions* Latosha Wesley MA - 08/17/2023 9:53 AM EDT Thank you for choosing the [facility] Department of Endocrinology, Diabetes and Metabolism. Did you know that you need to call 48 hours in advance of your scheduled visit, if you are unable to make your appointment? The Endocrinology and Metabolism [place] thanks you for your commitment, because patients not showing to their appointment results in a lost opportunity for patients to receive [facility] health care at the [facility]. To Cancel an appointment, please choose one of the following: - Call the Appointment Call Center at [phone] - From [employer], Go to Appointments - Cancel Appts If cancelling, consider your need to reschedule to prevent further delays in your care. To Schedule an appointment, please choose one of the following: - Call the Appointment Call Center at [phone] - From [employer], Go to Appointments - Request an Appt documented in this encounterSelect [facility] History of Present illness Narrative* Kayla Newman, RT(R) - 07/29/2023 1:00 PM EDT [...] PATIENT PRESENTS WITH AN IMPLANTABLE OR ATTACHED TELEPHONE PLANT POWER OPERATOR: No RADIOLOGY DEPARTMENT: General X-ray: Exam(s) Completed: HSG PERIPHERAL IV DATA: Not applicable SIGNED BY: RT Clark(R) July 29, 2023 1:58 PM documented in this encounterSelect [facility]-2024 NoteHNO ID: [id number] Author: KAYLA NEWMAN RT(Loc) Service: Radiology Author Type: Technologist [...] PATIENT PRESENTS WITH AN IMPLANTABLE OR ATTACHED TELEPHONE PLANT POWER OPERATOR: No RADIOLOGY DEPARTMENT: General X-ray: Exam(s) Completed: HSG PERIPHERAL IV DATA: Not applicable SIGNED BY: RT Clark(R) July 29, 2023 1:58 [id number] NoteHNO ID: [id number] Author: GAGE MORRISSEY APRN.CN Service: ? Author Type: Nurse [...] Plan of Care Visit completed when applicable. Gage Morrissey APRN.CNM Procedure: The cervix is visualized, prepped with Hibiclens. The canula/Balloon catheter was inserted into the cervix and dye injected into the cavity. Using Fluroscopy the uterine cavity is normal and the fallopian tubes are patent bilaterally without evidence of loculation. Gage Morrissey APRN.[place]NE[place] [id number] Procedure note* Gage Morrissey APRN.CNM - 07/29/2023 1:00 PM EDT [...] Plan of Care Visit completed when applicable. Gage Morrissey APRN.CNM Procedure: The cervix is visualized, prepped with Hibiclens. The canula/Balloon catheter was inserted into thecervix and dye injected into the cavity. Using Fluroscopy the uterine cavity is normal and the fallopian tubes are patent bilaterally without evidence of loculation. Gage Morrissey APRN.CNM [facility]05-02-2024 Procedure note* Gage Morrissey APRN.CNM - 07/29/2023 1:00 PM EDT [facility] GAYATHRI HYSTEROSALPINGOGRAM NOTE Date: July 29, [...] Plan of Care Visit completed when applicable. Gage Morrissey APRN.CNM Procedure: The cervix is visualized, prepped with Hibiclens. The canula/Balloon catheter was inserted into thecervix and dye injected into the cavity. Using Fluroscopy the uterine cavity is normal and the fallopian tubes are patent bilaterally without evidence of loculation. Gage Morrissey APRN.CNM documented in this encounterSelect [facility]03-20-2024 Miscellaneous Notes* Addendum Note - Franklin Laboy MD - 06/16/2023 4:39 PM EDTAddended by: FRAKNLIN LABOY on: 06/16/2023 04:39 PM Modules accepted: Orders * Telephone Encounter - Fina Davalos LGC - 06/16/2023 4:23 PM EDT Spoke with patient regarding screening for paraganglioma prior to . 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 Patient would like baseline screening for paraganglioma prior to planned , but is also not interested in delaying infertility treatments. Discussed getting plasma metanephrines and baseline CTs. Patient understands she cannot have CTs during . Will coordinate consults with Dr. Rosy Gallagher and Dr. Franklin Laboy. Patient will be updated via [employer] when orders are placed forimaging. Fina Davalos MS, [facility] Licensed, Certified Genetic Counselor documented in this encounterSelect [facility]-2024 Telephone encounter Note * Telephone Encounter - Rosmery Puentes LGC - 06/14/2023 1:39 PM EDT [...] to get tested to try for children. Rosmery Puentes MS, [facility] Licensed, Certified Genetic Counselor [facility] Work Phone: [phone]) 128-327403-18-2024 Miscellaneous Notes* Telephone Encounter - Rosmery Puentes LGC - 06/14/2023 1:39 PM EDT [...] to get tested to try for children. Rosmery Puentes MS, [facility] Licensed, Certified Genetic Counselor * Telephone Encounter - Rosmery Puentes LGC - 06/10/2023 4:04 PM EDT Patient name and was confirmed at initiation of discussion. Lissa Rivas's Integrated BRACAnalysis with [employer] through [email or web address] was positive for a pathogenic variant in [...] with appropriate care providers in Endocrinology (Dr. Rosy Gallagher) and Otolaryngology (Dr. Franklin Laboy) to review medical management options and [...] population without disease (benign polymorphism). Please see Syntax[employer] message for further discussion. CHRISTIE Magdaleno Licensed, Certified Genetic Counselor documented in this encounterSelect [facility]-2024 Telephone encounter Note * Telephone Encounter - Rosmery Puentes LGC - 06/10/2023 4:04 PM EDT Patient name and was confirmed at initiation of discussion. Lissa Rivas's Integrated BRACAnalysis with [employer] through [email or web address] was positive for a pathogenic variant in [...] with appropriate care providers in Endocrinology (Dr. Rosy Gallagher) and Otolaryngology (Dr. Franklin Laboy) to review medical management options and [...] population without disease (benign polymorphism). Please see [employer] message for further discussion. CHRISTIE Magdaleno Licensed, Certified Genetic Counselor [facility]02-27-2024 Miscellaneous Notes* Telephone Encounter - Gage Morrissey APRN.CNM - 05/25/2023 11:17 AM EST The following approved medication requests have been transmitted electronically. Requested Prescriptions Signed Prescriptions Disp Refills letrozole (FEMARA) 2.5 mg tablet 10 tablet 0 Sig: Take 2 tablets by mouth once daily. Take day 3-7 of her cycle Authorizing Provider: GAGE MORRISSEY APRN.CNM May 25, 2023 11:17 AM * Telephone Encounter - Randee Myers RN - 05/25/2023 10:05 AM EST Called the patient she verified her name and date of Patient needs refill of letrozole Has done 3 cycles of letrozole Randee Myers RN May 25, 2023 10:06 AM * Telephone Encounter - Ayanna Wise - 05/25/2023 9:59 AM EST [facility] [place] is pharmacy. Please follow up with patient. documented in this encounterSelect [facility]-2024 Miscellaneous Notes* Telephone Encounter - Rosmery Puentes LGC - 05/17/2023 11:24 AM EST [...] detect the familial mutation. Reviewed testing at [facility] as the best option, since we know that they detected this particular mutation in her mother. The patient was offered SDHA single site mutation analysis through [email or web address] or self pay Integrated BRACAnalysis with [employer] and SDHA single site mutation analysis through [email or web address]. After considering the risks, benefits, and limitations, the patient chose to pursue and provided informed consent for the following testing: SELF PAY Integrated BRACAnalysis with [employer] and SDHA single site mutation analysis through [email or web address]. The [employer]Risk panel includes APC, MICHAEL, AXIN2, BAP1, BARD1, BMPR1A, BRCA1, BRCA2, BRIP1, CDH1, CDK4, CDKN2A, CHEK2, CTNNA1, EGFR, EPCAM, FH, FLCN, GREM1, HOXB13, MEN1, MET, MITF, MLH1, MSH2, MSH3, MSH6, MUTYH, NTHL1, PALB2, PMS2, POLD1, POLE, PTEN, RAD51C, RAD51D, RET, SDHA, SDHB, SDHC, SDHD, SMAD4, STK11, TERT, TP53, TSC1, TSC2, and VHL [facility] looks at genes related to inherited breast, ovarian, pancreatic, prostate, colon, uterine, kidney, lung, endocrine, and stomach cancer, as well as inherited colon polyp and melanoma syndromes. We discussed that an NGS panel can rarely result in an unexpected finding which may or may not be related to the presenting phenotype. We discussed that [employer] may contact the patient by text or phone call regarding billing. The patient should watch for this communication and respond promptly. The patient should contact [employer] directly with any billing questions (ph. [phone]). Rosmery Puentes MS, [facility] Licensed, Certified Genetic Counselor * Telephone Encounter - Rosmery Puentes LGC - 04/23/2023 3:19 PM EST [...] NTHL1, PALB2, PDGFRA, PMS2, POLD1, POLE, POT1, DJQME3U, PTCH1, PTEN, RAD51C, RAD51D, RB1, RET, SDHA, SDHAF2, SDHB, SDHC, SDHD, SMAD4, SMARCA4, SMARCB1, SMARCE1, STK11, SUFU, IRRZ861, TP53, TSC1, TSC2, and VHL The Multi-Cancer panel looks at genes associated with cancers of the breast, gynecologic tract (ovarian, uterine/endometrial), gastrointestinal system (colorectal, gastric, pancreatic), endocrine glands (thyroid, parathyroid, pituitary, adrenal glands), genitourinary tract (renal/urinary tract, prostate), skin (melanoma, basal cell carcinoma), and brain/nervous system. AM CHECKING WITH [facility] FIRST ABOUT VARIANT BEFORE PROCEEDING, WILL CONTACT PATIENT WHEN READY TO MOVE FORWARD. Rosmery Puentes MS, [facility] Licensed, Certified Genetic Counselor documented in this encounterSelect [facility]-2024 NoteHNO ID: [id number] Author: ROSMERY PUENTES LGC Service: ? Author Type: Genetic Counselor Type: Progress Notes Filed: 05/18/2023 16:44 Note Text: [facility] Consultation Note Genetic Counselor: Rosmery Puentes, , [facility] Patient: Lissa Rivas Patient Name and confirmed at initiation of visit. The patient provided consent for a virtual visit by Rachel Jerome. I have communicated my name and active licensure. The patient's identity and physical location were verified at the time of this visit. Either the patient or their legal corporate representative has been informed of the risks [...] , descent and paternal ancestors are of Setswana descent. There is no Ashkenazi Rastafari ancestry. [...] point. We also revi (more content not included)...[facility] [id number] History of Present illness Narrative* Rosmery Puentes LGC - 04/21/2023 12:33 PM EST Images from the original note were not included. [facility] Consultation Note Genetic Counselor: Rosmery Puentes MS, [facility] Patient: Lissa Rivas Patient Name and confirmed at initiation of visit. The patient provided consent for a virtual visit by Rachel Jerome. I have communicated my name and active licensure. The patient's identity and physical location were verified at the time of this visit. Either the patient or their legal corporate representative has been informed of the risks [...] Procedure Laterality Date EYE SURGERY HX 03/[address] [email or web address] CANCER SURVEILLANCE HISTORY: Mammograms: No Breast MRI's: [...] , descent and paternal ancestors are of Setswana descent. There is no Ashkenazi Rastafari ancestry. [...] extend to insurances such as life insurance, termite helper care, or disability. The patient was seen for a total of 30 minutes, greater than 50% of which was spent ehrk-ha-rasq counseling. This plan is being carried out under the oversight of Dr. Annamarie Joe. This note will also be sent to the referring provider via the electronic medical record. Rosmery Puentes MS, [facility] CC: Dr. Fede Joe documented in this encounterSelect Medical [facility]24 Miscellaneous Notes* GAYATHRI Plan Note - Fede [...] answered. Kim Khan MD documented in this encounterSelect Medical Specialty [facility]01-10-2024 Consult note* Fede Hairston MD - 04/07/2023 [...] used ocp since teenager. Was seen [facility] for PCOS and placed on metformin. [...] Hysteroscopy Laparoscopy OPK (Ovulation Predictor Kit) Ovarian [place] [facility] 10.91 High 01/04/2023 Saline Ultrasound Semen [...] which included preparing to see the patient, xzcc-jx-oasl patient care, counseling and educating the patient/family/caregiver, and ordering medications, tests, or procedures. I have communicated my name and active licensure. The patient's identity and physical location wereverified at the time of this visit. Either the patient or their legal corporate representative has been informed of the risks and benefits of -- and alternatives to -- treatment through a remote evaluation andconsents to proceed with the evaluation remotely. Kim Khan MD documented in this encounterSelect [facility]-13-2023 History of Present illness Narrative* Fede Hairston MD - 02/08/2023 3:03 PM EST Patient is here for ultrasound. Please see image section in Epic for results. Kim Khan MD documented in this encounterSelect [facility]11-09-2023 Miscellaneous Notes* Telephone Encounter - Gage Morrissey APRN.CNP - 02/04/2023 2:12 PM EST 21 day progesterone level ordered. Gage Morrissey APRN.CNP February 04, 2023 2:12 PM * Telephone Encounter - Keren Carcamo - 02/04/2023 2:05 PM EST Pt states she has started her letrozole today documented in this [facility]03-31-2023 Evaluation note* Encounter Date Diagnosis Assessment Notes Treatment Notes Treatment Clinical Notes May, Puncture wound of fi nger of left hand, initial encounter (ICD-10 - S61.239A) Keep the wound clean and dry. Apply antibiotic ointment to the wound daily. No washing dishes untilthe wound is completely healed. If you have to wash dishes wear a glove. You may get the wound wet in the shower. Take Tylenol or Motrin for aches pains or fevers. Follow-up with your family physician for any further concerns May,OtherPuncture wound material was printed [employer] Other 01-01-2021 History general Narrative - Reported* Type Description Date Medical History asthma Surgical Historylaser eye surgery, omaegdcat05/2021Hospitalization HistoryRash, age 5 [employer] Other Evaluation note* Diagnosis Encounter for fertility testing- Primary Fertility testing [facility]* Diagnosis Secondary amenorrhea Absence of menstruation PCOS (polycystic ovarian syndrome) Polycystic ovaries documented in this encounter [facility]* Diagnosis PCOS (polycystic ovarian syndrome)- Primary Polycystic ovaries Fertility testing [facility]* Diagnosis Family history of cancer- Primary Family history of unspecified malignant neoplasm Family history of gene mutation documented [facility]* Diagnosis Family history of breast cancer- Primary Family history of malignant neoplasm of breast Family history of prostate cancer Family history of malignant neoplasm of prostate documented [facility] this [facility]* Diagnosis Procreative management- Primary Unspecified procreative management documented in this [facility]* Diagnosis Monoallelic mutation of SDHA gene- Primary Localized enlarged lymph nodes Enlargement of lymph nodes Intra-abdominal and pelvic swelling, mass and lump, unspecified site documented in this [facility]* Diagnosis Encounter for fertility testing- Primary Fertility testing Pre-procedure lab exam Pre-procedural laboratory examination documented in this [facility]* Diagnosis Fertility testing documented in this [facility]* Diagnosis Monoallelic mutation of SDHA gene- Primary Obesity, Class III, BMI 40-49.9 (morbid obesity) (HCC) Morbid obesity documented in this [facility]* Diagnosis Irregular menstrual cycle- Primary PCOS (polycystic ovarian syndrome) Polycystic ovaries documented in this encounter [facility]* Diagnosis Monoallelic mutation of SDHA gene- Primary documented in this encounter [facility]* Diagnosis Secondary amenorrhea- Primary Absence of menstruation documented in this [facility]* Diagnosis Secondary amenorrhea- Primary Absence of menstruation documented [facility] Diagnosis Screen for sexually transmitted diseases- Primary Screening examination for venereal disease Secondary amenorrhea Absence of menstruation Female infertility Female infertility of unspecified origin documented in this encounter [facility] note* Diagnosis Procreation management investigation and testing- Primary Other investigation and testing for procreative management documented in this encounter [facility] note* Diagnosis Treatment plan provided- Primary documented in this encounter [facility] note* Diagnosis Female infertility Female infertility of unspecified origin documented in this encounter [facility] note* Diagnosis Encounter for artificial insemination- Primary Artificial insemination documented in this encounter [facility] note* Diagnosis Procreation management investigation and testing- Primary Other investigation and testing for procreative management documented in this encounter [facility] note* Diagnosis Procreation management investigation and testing- Primary Other investigation and testing for procreative management Female infertility Female infertility of unspecified origin documented in this encounter [facility] note* Diagnosis Procreation management investigation and testing- Primary Other investigation and testing for procreative management documented in this encounter [facility] note* Diagnosis Procreation management investigation and testing- Primary Other investigation and testing for procreative management documented in this encounter [facility] note* Diagnosis Female infertility Female infertility of unspecified origin documented in this encounter [facility] note* Diagnosis Procreation management investigation and testing- Primary Other investigation and testing for procreative management documented in this encounter [facility] note* Diagnosis Female infertility- Primary Female infertility of unspecified origin documented in this encounter [facility] note* Diagnosis Female infertility- Primary Female infertility of unspecified origin documented in this encounter [facility] note* Diagnosis Encounter for artificial insemination- Primary Artificial insemination documented in this encounter [facility] note* Diagnosis Procreation management investigation and testing- Primary Other investigation and testing for procreative management documented in this encounter [facility] note* Diagnosis Female infertility- Primary Female infertility of unspecified origin documented in this encounter [facility] note* Diagnosis Encounter for gynecological examination without abnormal finding- Primary Screening for malignant neoplasm of cervix Screening for malignant neoplasm of the cervix Desire for BV (bacterial vaginosis) Unspecified vaginitis and vulvovaginitis documented in this encounter [facility] note* Diagnosis Procreation management investigation and testing- Primary Other investigation and testing for procreative management [facility] Diagnosis Female infertility Female infertility of unspecified origin documented in this [facility]* Diagnosis Female infertility- Primary Female infertility of unspecified origin [facility] Diagnosis Otalgia of both ears- Primary Temporomandibular joint disorder Unspecified temporomandibular joint disorders Chronic allergic rhinitis Postnasal drip documented in this encounter [facility] Work Phone: Evaluation note* Diagnosis Supervision of with history of infertility, first trimester- Primary examination or test, unconfirmed documented in this [facility]* Diagnosis Encounter for test, result positive- Primary examination or test, positive result documented in this encounter [facility] note* Diagnosis Supervision of with history of infertility, first trimester- Primary [facility]* Diagnosis PCOS (polycystic ovarian syndrome)- Primary Polycystic ovaries [facility]* Diagnosis Encounter for supervision of normal first in first trimester Encounter for drug screening [facility] Diagnosis Supervision of with history of infertility, first trimester documented in this [facility]* Diagnosis Procreation management investigation and testing- Primary Other investigation and testing for procreative management [facility]* Diagnosis Missed menses , unspecified gestational age Encounter for supervision of normal first in first trimester 9 weeks gestation of [facility] Diagnosis First trimester state, incidental 13 weeks gestation of Urinary tract infection without hematuria, site unspecified [facility]* Diagnosis Onychomycosis- Primary Dermatophytosis of nail Onychodystrophy Other specified disease of nail Xerosis cutis Other specified disease of sebaceous glands Fissure in skin of both feet [facility]* Diagnosis Second trimester state, incidental 14 weeks gestation of Spotting in Spotting complicating , unspecified as to episode of care or not applicable [facility]* Diagnosis Monoallelic mutation of SDHA gene- Primary [facility] Diagnosis Diabetes mellitus screening Screening for diabetes mellitus Second trimester state, incidental 22 weeks gestation of [facility]* Diagnosis Annual physical exam- Primary Routine general medical examination at a health care facility Hepatic steatosis Other chronic 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 Polycystic ovaries Vitamin D deficiency Palpitations Murmur Undiagnosed cardiac murmurs documented in this encounter [facility]* Diagnosis Second trimester state, incidental 26 weeks gestation of documented in this encounter [facility] HealthcareEvaluation noteNo assessment information availableS[facility] Work Phone: Evaluation note* Diagnosis Gestational diabetes mellitus (GDM) in third trimester, gestational diabetes method of control unspecified- Primary [facility] Diagnosis Monoallelic mutation of SDHA gene- Primary Gestational diabetes mellitus (GDM) in third trimester, gestational diabetes method of control unspecified (HCC) documented in this encounter [facility]* Diagnosis 28 weeks gestation of Third trimester state, incidental Gestational diabetes mellitus (GDM), antepartum, gestational diabetes method of control unspecified Herpes simplex virus type 1 (HSV-1) dermatitis documented in this encounter [facility] HealthcareEvaluation [facility]* Diagnosis Insulin controlled gestational diabetes mellitus (GDM) in third trimester Abnormal liver enzymes Abnormal genetic test Gestational diabetes requiring insulin Abnormal maternal glucose tolerance, complicating , childbirth, or the puerperium, unspecified as to episode of care Elevated blood pressure affecting , antepartum [facility] Diagnosis History of gestational diabetes- Primary Personal history of other genital system and obstetric disorders Third trimester (HHS-HCC) state, incidental 31 weeks gestation of (HHS-HCC) [facility]* Diagnosis Gestational diabetes requiring insulin Abnormal maternal glucose tolerance, complicating , childbirth, or the puerperium, unspecified as to episode of care Elevated blood pressure affecting , antepartum Insulin controlled gestational diabetes mellitus (GDM) in third trimester Abnormal liver enzymes [facility]* Diagnosis Insulin controlled gestational diabetes mellitus (GDM) in third trimester- Primary Gestational diabetes requiring insulin Abnormal maternal glucose tolerance, complicating , childbirth, or the puerperium, unspecified as to episode of care documented in this encounter [facility]* Diagnosis Third trimester (HHS-HCC) state, incidental Insulin controlled gestational diabetes mellitus (GDM) during , antepartum (HHS-HCC) 32 weeks gestation of (HHS-HCC) documented [facility]* Diagnosis Herpes simplex- Primary Herpes simplex without mention of complication 33 weeks gestation of ([facility]) Encounter for routine care ([facility]) Third trimester (HHS-HCC) state, incidental documented [facility]* Diagnosis Third trimester (HHS-HCC) state, incidental 34 weeks gestation of ([facility]) Herpes simplex virus type 1 (HSV-1) dermatitis Insulin controlled gestational diabetes mellitus (GDM) during , antepartum ([facility]) documented [facility]* Diagnosis Insulin controlled gestational diabetes mellitus (GDM) in third trimester- Primary [facility]* Diagnosis induced hypertension, antepartum ([facility])- Primary Transient hypertension of , antepartum Third trimester (HHS-HCC) state, incidental 35 weeks gestation of ([facility]) documented [facility]* Diagnosis Third trimester (HHS-HCC) state, incidental 36 weeks gestation of (HHS-HCC) induced hypertension, antepartum ([facility]) Transient hypertension of , antepartum documented [facility]* Diagnosis 36 weeks gestation of - Primary Gestational diabetes requiring insulin Abnormal maternal glucose tolerance, complicating , childbirth, or the puerperium, unspecified as to episode of care Pre-eclampsia in third trimester Non-sustained ventricular tachycardia ([facility]) documented in this encounter [facility]* Diagnosis Follow-up, , routine ([facility]) Routine follow-up S/P documented in this encounter [facility]* Diagnosis 6 weeks follow-up ([facility]) documented in this encounter [facility] HealthcareInstructionsNot on filedocumented in this encounterProMedica [facility] SystemInstructionsNot on filedocumented in this encounterProMedial Health SystemInstructionsNot on filedocumented in this encounterProMedica Health SystemInstructionsNot on filedocumented in this encounterProMedica Health System InstructionsNot on filedocumented in this encounterProMedica [facility] InstructionsNot on filedocumented in this encounterProMedica [facility] InstructionsNot on filedocumented in this encounterProMedica Health [facility] InstructionsNot on filedocumented in this encounterProMedica Health [facility] InstructionsNot on filedocumented in this encounterProAden[facility] InstructionsNot on filedocumented in this encounterProAdena [facility] Cent[facility] InstructionsNot on filedocumented in this encounterProHocking [facility] SystemReason for referral (narrative)* Diagnostic Procedure Only (Routine) - Pending Review SpecialtyDiagnoses / ProceduresReferred By ContactReferred To ContactXR IMAGING Diagnoses Fertility testing Procedures XR HYSTEROSALPINGOGRAM CATH & SALINE/CONTRAST SONOHYSTER/HYSTEROSALPI Fede Hairston MD [address] [place] [address] Xr Imaging [place] [address] Referral IDStatusReasonStart DateExpiration DateVisits RequestedVisits [id number] Review Auto-Generated Referral / [facility] for referral (narrative)* Diagnostic Procedure Only (Routine) - Pending ReviewSpecialtyDiagnoses / ProceduresReferred By Contact [facility] To [facility] Diagnoses Female infertility Procedures FOLLICULAR US WHI US PELVIC NONOBSTETRIC IMAGE DCMTN LIMITED/F/U Gage Morrissey APRN.CNM [address] [place] [address] [facility] [address] [address] Referral IDStatusReasonStsterling heights DateExpiration DateVisits RequestedVisits [id number] Review Auto-Generated Referral / [facility] for referral (narrative)* Diagnostic Procedure Only (Routine) - New RequestSpecialtyDiagnoses / ProceduresReferred By Contact Referred To [facility] Diagnoses Female infertility Procedures FOLLICULAR US I US PELVIC NONOBSTETRIC IMAGE JOE LIMITED/F/U Gage Morrissey APRN.JUKEBOX CHECKER [address] [place] [address] [facility] [address] [place] [address] [place] [address] Referral IDStatusReasonStsterling heights DateExpiration DateVisits RequestedVisits [id number] Request Auto-Generated Referral / [facility] for referral (narrative)* Diagnostic Procedure Only (Routine) - New RequestSpecialtyDiagnoses / ProceduresReferred By Contact Referred To [facility] Diagnoses Female infertility Procedures FOLLICULAR US [facility] US PELVIC NONOBSTETRIC IMAGE JOE LIMITED/F/U Gage Morrissey APRN.JUKEBOX CHECKER [address] [place] [address] [place] [address] Referral IDStatusReasonStart DateExpiration DateVisits RequestedVisits [id number] Request Auto-Generated Referral [facility] for referral (narrative)* Diagnostic Procedure Only (Routine) - AuthorizedSpecialtyDiagnoses / ProceduresReferred By Contact Referred To [facility] Diagnoses Supervision of with history of infertility, first trimester Procedures OBSTETRIC ULTRASOUND I US PREG UTERUS AFTER 1ST TRIMEST GESTATION Gage Morrissey APRN.CNP [address] [place] [address] [place] [address] [place] [address] Referral IDStatusReasonStart DateExpiration DateVisits RequestedVisits [id number] Auto-Generated Referral [facility] (narrative)No reason for referral information availableMemorial Health [facility] Work Phone: Reason for visit Narrative* Diagnostic Procedure Only (Routine) - ClosedSpecialtyDiagnoses / ProceduresReferred By ContactReferred To [facility] Diagnoses Supervision of with history of infertility, first trimester Procedures OBSTETRIC ULTRASOUND WHI US PREG UTERUS AFTER 1ST TRIMEST GESTATION Gage Morrissey APRN.CNP [address] [place] [address] [facility] [address] [facility] [place] [id number] Referral IDStatusReasonStart DateExpiration DateVisits RequestedVisits [id number] Auto-Generated Referral [facility] Summary Purpose Family History No Family History Records Found Relationship Condition Age at Onset Recorded Date/T lucero father Diabetes mellitus Unknown Heart diseaseUnknownmotherHypertensionUnknown Advance Directives No Advanced Directives Records Found Advance Directive Response Recorded Date/ Time Advance Directives No February 2:57pm Date ActivatedDate InactivatedComments10/30/2024 8:22 AMDate ActivatedDate InactivatedComments10/30/2024 8:22 AM11/02/2024 6:10 PM Reason for Referral SpecialtyDiagnoses / ProceduresReferred By ContactReferred To [facility] Diagnoses Female infertility Procedures FOLLICULAR US WHI US PELVIC NONOBSTETRIC IMAGE DCMTN LIMITED/F/U Gage Morrissey APRN.JUKEBOX CHECKER [address] [place] [address] [facility] [address] [facility] [facility] [place] [id number] Referral IDStatusReasonStart DateExpiration DateVisits RequestedVisits [id number] Benefit Check /[id number] / ProceduresReferred By ContactReferred To Contact Gage Morrissey APRN.JUKEBOX CHECKER [address] [place] [address] Referral IDStatusReasonStart DateExpiration DateVisits RequestedVisits [id number] / ProceduresReferred By Contact Referred To Contact Diagnoses Obesity, Class III, BMI 40-49.9 (morbid obesity) (HCC) Procedures ENDOCRINE MEDICAL WEIGHT MANAGEMENT OFFICE/OUTPATIENT [facility] 60 MINUTES Rosy Gallagher MD [address] [place] [address] Referral IDStatusReasonStart DateExpiration DateVisits RequestedVisits [id number] PCP Requested Referral [id number] / ProceduresReferred By ContactReferred To ContactCT IMAGING Diagnoses Intra-abdominal and pelvic swelling, mass and lump, unspecified site Procedures CT ABDOMEN W IVCON CT ABDOMEN W/CONTRAST Franklin Laboy MD [address] [place] [address] Ct Imaging [place] [address] Referral IDStatusReasonStart DateExpiration DateVisits RequestedVisits [id number] Review Auto-Generated Referral [id number] / ProceduresReferred By ContactReferred To ContactCT IMAGING Diagnoses Localized enlarged lymph nodes Procedures CT CHEST W IVCON DIAGNOSTIC COMPUTED TOMOGRAPHY THORAX W/CONTRAST Franklin Laboy MD [address] [facility] [place] [address] Ct Imaging [place] [address] Referral IDStatusReasonStart DateExpiration DateVisits RequestedVisits [id number] Review Auto-Generated Referral /[id number] / ProceduresReferred By ContactReferred To ContactCT IMAGING Diagnoses Localized enlarged lymph nodes Procedures CT NECK SOFT TISSUE W IVCON CT SOFT TISSUE NECK W/CONTRAST MATERIAL Franklin Laboy MD [address] [place] [address] [place] [address] Referral IDStatusReasonStart DateExpiration DateVisits RequestedVisits [id number] Review Auto-Generated Referral Chief Complaint and Reason for Visit Chief [...] Admit Date Abnormal cardiovascular function study J [facility] 2024 2:11pm Heart palpitations October 18, 2024 2:11 pm NSVT (nonsustained ventricular tachycard ia) October 18, 2024 2:11pm October 18, 2024 2:11 pm Chief Complaint Admit Date R00.2 R01.1 August 24, 2024 12:14 pm R00.2 R01.1 September 14, 2024 12:0 0am R94.31 October 18, 2024 2:09 pm Abnormal ECG- EKG October 18, 2024 2:11 pm I47.10 R06.00 October 18, 2024 3:07 pm 4 week f/u November 16, 2024 2: 31pm Reason for Visit Admit Date Abnormal cardiovascular function study J [facility] 2024 2:11pm Heart palpitations October 18, 2024 2:11 pm NSVT (nonsustained ventricular tachycard ia) October 18, 2024 2:11pm October 18, 2024 2:11 pm Abnormal cardiovascular function study A ug2024 2:31pm Heart palpitations November 16, 2024 2: 31pm NSVT (nonsustained ventricular tachycard ia) November 16, 2024 2:31pm November 16, 2024 2: 31pm Chief Complaint Admit Date R94.31 October 18, 2024 2:09 pm Abnormal ECG- EKG October 18, 2024 2:11 pm I47.10 R06.00 October 18, 2024 3:07 pm 4 week f/u November 16, 2024 2: 31pm R07.89 O14.90 O24.419 Z39.2 December 142024 8:50am Reason for Visit Admit Date Abnormal cardiovascular function study J lubna 2024 2:11pm Heart palpitations October 18, 2024 2:11 pm NSVT (nonsustained ventricular tachycard ia) October 18, 2024 2:11pm October 18, 2024 2:11 pm Abnormal cardiovascular function study A 2024 2:31pm Gestational diabetes November 16, 2024 2 :31pm Heart palpitations November 16, 2024 2: 31pm NSVT (nonsustained ventricular tachycard ia) November 16, 2024 2:31pm Preeclampsia November 16, 2024 2: 31pm Additional Source Comments INFORMATION SOURCE (unrecogn ized section and content) DATE CREATED AUTHOR 12/06/2019 [facility] DATE CREATED AUTHOR AUTHOR'S ORGANIZ ATION 07/24/2023 [facility] DATE CREATED AUTHOR AUTHOR'S ORGANIZ ATION 02/25/2024 [facility] DATE CREATED AUTHOR AUTHOR'S ORGANIZ ATION 03/11/2024 [facility] DATE CREATED AUTHOR AUTHOR'S ORGANIZ ATION 03/11/2024 [facility] DATE CREATED AUTHOR AUTHOR'S ORGANIZ ATION 09/20/2024 [facility] DATE CREATED AUTHOR AUTHOR'S ORGANIZ ATION 11/09/2024 [facility] DATE CREATED AUTHOR AUTHOR'S ORGANIZ ATION 12/12/2024 [facility] DATE CREATED AUTHOR AUTHOR'S ORGANIZ ATION 12/15/2024 [facility] REASON FOR VISIT (unrecogniz ed section and content) ReasonCommentsInfertilitySpecialtyDiagnoses / ProceduresReferred By Contact Referred To [facility] Diagnoses Female infertility Procedures FOLLICULAR US [facility] US PELVIC NONOBSTETRIC IMAGE DCMTN LIMITED/F/U Gage Morrissey, DEBBIE.JUKEBOX CHECKER [address] [place] [address] [place] [address] Referral IDStatusReasonStart DateExpiration DateVisits RequestedVisits [id number] Benefit Check [id number] letrozoleSpecialtyDiagnoses / ProceduresReferred By ContactReferred To [facility] Diagnoses Secondary amenorrhea PCOS (polycystic ovarian syndrome) Procedures PELVIC US [facility] US PELVIC NONOBSTETRIC REAL-TIME IMAGE COMPLETE Fede Hairston MD [address] [place] [address] [place] [address] Referral IDStatusReasonStart DateExpiration DateVisits RequestedVisits [id number] Benefit Check [id number] UpReasonCommentsFollow UpReason CommentsAppointmentReasonCommentsrefill letrozol/cycle to start in next week ReasonCommentsCare Coordinator - OtherHereditary Paraganglioma-Pheochromocytoma Syndrome clinicReasonCommentsResultsGeneticReasonCommentsNurse VisitSpecialty Diagnoses / ProceduresReferred By ContactReferred To ContactXR IMAGING Diagnoses Fertility testing Procedures XR HYSTEROSALPINGOGRAM CATH & SALINE/CONTRAST SONOHYSTER/HYSTEROSALPI HYSTEROSALPINGOGRAPHY RS&I URINE TEST Fede Hairston MD [address] [facility] [facility] [place] [id number] Xr Imaging [place] [address] Referral IDStatusReasonStart DateExpiration DateVisits RequestedVisits [id number] Benefit Check /[id number]kyrLdzaylxqAco PatientSHDA ref by Fina Rodriguesannamarie 07/23 no cycle since thenReasonComments Patient QuestionReasonCommentsTreatment PlanningReasonCommentsLauren lmp today/re us day 11-13 for iuiReasonCommentstrigger shotSpecialtyDiagnoses / ProceduresReferred By ContactReferred To [facility] Diagnoses Female infertility Procedures FOLLICULAR US WHI US PELVIC NONOBSTETRIC IMAGE DCMTN LIMITED/F/U Gage Morrissey APRN.JUKEBOX CHECKER [id number] [place] [address] [facility] [address] [place] [address] Referral IDStatusReasonStart DateExpiration DateVisits RequestedVisits [id number]/18/202412/31/[id number] / Procedures Referred By ContactReferred To ContactREPRODUCTIVE ENDOCRINOLOGY & FERTILITY Diagnoses Encounter for other procreative management Procedures ARTIFIC INSEMINATION INTRAUTERIN Gage Morrissey APRN.JUKEBOX CHECKER [id number] [place] [address] Gage Morrissey APRN.JUKEBOX CHECKER [id number] [place] [address] Referral IDStatusReasonStart DateExpiration DateVisits RequestedVisits [id number] Benefit Check /[id number] 10/25 , cd 1 11/11ReasonCommentsTreatment PlanningReferral IDStatusReasonStart DateExpiration DateVisits RequestedVisits [id number] Benefit Check /[id number] / ProceduresReferred By ContactReferred To ContactLABORATORY MEDICINE Diagnoses Encounter for other procreative management Procedures ARTIFIC INSEMINATION INTRAUTERIN Deshawn Riojas MD [address] [place] [address] [facility] [address] [place] [address] Referral IDStatusReasonStart DateExpiration DateVisits RequestedVisits [id number] Financial Clearance Required - Self Pay [id number] 12/12/23/ set up monitored cyclePatient UpdateReferral IDStatusReasonStart DateExpiration DateVisits RequestedVisits [id number] Benefit Check [id number]isBokjvbmva / ProceduresReferred By ContactReferred To ContactREPRODUCTIVE ENDOCRINOLOGY & FERTILITY Diagnoses Encounter for other procreative management Female infertility, unspecified Procedures ARTIFIC INSEMINATION INTRAUTERIN Self Whi Gayathri [facility] [address] [address] [place] [address] Referral IDStatusReasonStsterling heights DateExpiration DateVisits RequestedVisits [id number] Benefit Check [id number] plan , cd1 01/12ReasonCommentsRefill RequestReasonCommentslmp 02/13 for iui - ovulation trackingReasonComments Gynecologic ExamLMP: 02-13-24 regular, monthly, heavy flow, lasts 3-4 daysBC: None- seeing fertility specialistLastpap 11-18-22 neg.Denies breast, urinary, or bowel concerns.ContraceptionTaking medroxyprogesterone and progesterone.vaginal odorC/o recurring vaginal odor each time after intercourse. Does not think fishy odor, but strong. Unsure if discharge is present.ReasonCommentsneeds [facility]ReasonCommentslauren pt is not cleared for us should she still have it doReasonCommentsEarachePatient is here for ear pain. 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 Ongoing for quite a while. Has tried OTC products for both issues.ReasonCommentsAnnual ExamNo lab ordered prior to visit. Patient is feeling good. She is 4 months .ReasonCommentsElevated Glucose Tolerance TestSpecialtyDiagnoses / ProceduresReferred By ContactReferred To Contact Maternal and Medicine Diagnoses Gestational diabetes mellitus (GDM) in third trimester, gestational diabetes method of control unspecified Saravanan Ahumada, DO [address] [place] [address] Phone: tel: fax: Maternal- Medicine at [facility] [address] [facility] [place] [place] [address] Phone: tel: fax: Referral IDStatusReasonStart DateExpiration DateVisits RequestedVisits [id number] Review Specialty Services Required [id number]-QSKPclphyZiqfykozGjffgb UpYearly follow [id number] Follow-up Source Comments (unrecognize d section and content) In the event this informatio n is protected by the Federal Confidentiality of Alcohol and Drug Abuse Patient Records regulations: The Federal rules restrict any use of the information to criminally investigate or prosecute any alcohol or drug abuse patient.[facility]onIn the event this information is protected by the Federal Confidentiality of Alcohol and Drug Abuse Patient Records regulations: The Federal rules restrict any use of the information to criminally investigate or prosecute any alcohol or drug abuse patient.[facility] the event this information is protected by the Federal Confidentiality of Alcohol and Drug Abuse Patient Records regulations: The Federal rules restrict any use of the information to criminally investigate or prosecute any alcohol or drug abuse patient.[facility]onIn the event this information is protected by the Federal Confidentiality of Alcohol and Drug Abuse Patient Records regulations: The Federal rules restrict any use of the information to criminally investigate or prosecute any alcohol or drug abuse patient.[facility]onIn the event this information is protected by the Federal Confidentiality of Alcohol and Drug Abuse Patient Records regulations: The Federal rules restrict any use of the information to criminally investigate or prosecute any alcohol or drug abuse patient.[facility]onIn the event this information is protected by the Federal Confidentiality of Alcohol and Drug Abuse Patient Records regulations: The Federal rules restrict any use of the information to criminally investigate or prosecute any alcohol or drug abuse patient.[facility]onIn the event this information is protected by the Federal Confidentiality of Alcohol and Drug Abuse Patient Records regulations: The Federal rules restrict any use of the information to criminally investigate or prosecute any alcohol or drug abuse patient.[facility]onIn the event this information is protected by the Federal Confidentiality of Alcohol and Drug Abuse Patient Records regulations: The Federal rules restrict any use of the information to criminally investigate or prosecute any alcohol or drug abuse patient.[facility]onIn the event this information is protected by the Federal Confidentiality of Alcohol and Drug Abuse Patient Records regulations: The Federal rules restrict any use of the information to criminally investigate or prosecute any alcohol or drug abuse patient.[facility]onIn the event this information is protected by the Federal Confidentiality of Alcohol and Drug Abuse Patient Records regulations: The Federal rules restrict any use of the information to criminally investigate or prosecute any alcohol or drug abuse patient.[facility]onIn the event this information is protected by the Federal Confidentiality of Alcohol and Drug Abuse Patient Records regulations: The Federal rules restrict any use of the information to criminally investigate or prosecute any alcohol or drug abuse patient.[facility]onIn the event this information is protected by the Federal Confidentiality of Alcohol and Drug Abuse Patient Records regulations: The Federal rules restrict any use of the information to criminally investigate or prosecute any alcohol or drug abuse patient.[facility]onIn the event this information is protected by the Federal Confidentiality of Alcohol and Drug Abuse Patient Records regulations: The Federal rules restrict any use of the information to criminally investigate or prosecute any alcohol or drug abuse patient.[facility]onIn the event this information is protected by the Federal Confidentiality of Alcohol and Drug Abuse Patient Records regulations: The Federal rules restrict any use of the information to criminally investigate or prosecute any alcohol or drug abuse patient.[facility]onIn the event this information is protected by the Federal Confidentiality of Alcohol and Drug Abuse Patient Records regulations: The Federal rules restrict any use of the information to criminally investigate or prosecute any alcohol or drug abuse patient.[facility]onIn the event this information is protected by the Federal Confidentiality of Alcohol and Drug Abuse Patient Records regulations: The Federal rules restrict any use of the information to criminally investigate or prosecute any alcohol or drug abuse patient.[facility]onIn the event this information is protected by the Federal Confidentiality of Alcohol and Drug Abuse Patient Records regulations: The Federal rules restrict any use of the information to criminally investigate or prosecute any alcohol or drug abuse patient.[facility]onIn the event this information is protected by the Federal Confidentiality of Alcohol and Drug Abuse Patient Records regulations: The Federal rules restrict any use of the information to criminally investigate or prosecute any alcohol or drug abuse patient.[facility]onIn the event this information is protected by the Federal Confidentiality of Alcohol and Drug Abuse Patient Records regulations: The Federal rules restrict any use of the information to criminally investigate or prosecute any alcohol or drug abuse patient.[facility]onIn the event this information is protected by the Federal Confidentiality of Alcohol and Drug Abuse Patient Records regulations: The Federal rules restrict any use of the information to criminally investigate or prosecute any alcohol or drug abuse patient.[facility]onIn the event this information is protected by the Federal Confidentiality of Alcohol and Drug Abuse Patient Records regulations: The Federal rules restrict any use of the information to criminally investigate or prosecute any alcohol or drug abuse patient.[facility]onIn the event this information is protected by the Federal Confidentiality of Alcohol and Drug Abuse Patient Records regulations: The Federal rules restrict any use of the information to criminally investigate or prosecute any alcohol or drug abuse patient.[facility]onIn the event this information is protected by the Federal Confidentiality of Alcohol and Drug Abuse Patient Records regulations: The Federal rules restrict any use of the information to criminally investigate or prosecute any alcohol or drug abuse patient.[facility]onIn the event this information is protected by the Federal Confidentiality of Alcohol and Drug Abuse Patient Records regulations: The Federal rules restrict any use of the information to criminally investigate or prosecute any alcohol or drug abuse patient.[facility]onIn the event this information is protected by the Federal Confidentiality of Alcohol and Drug Abuse Patient Records regulations: The Federal rules restrict any use of the information to criminally investigate or prosecute any alcohol or drug abuse patient.[facility]onIn the event this information is protected by the Federal Confidentiality of Alcohol and Drug Abuse Patient Records regulations: The Federal rules restrict any use of the information to criminally investigate or prosecute any alcohol or drug abuse patient.[facility]onIn the event this information is protected by the Federal Confidentiality of Alcohol and Drug Abuse Patient Records regulations: The Federal rules restrict any use of the information to criminally investigate or prosecute any alcohol or drug abuse patient.[facility]onIn the event this information is protected by the Federal Confidentiality of Alcohol and Drug Abuse Patient Records regulations: The Federal rules restrict any use of the information to criminally investigate or prosecute any alcohol or drug abuse patient.[facility]onIn the event this information is protected by the Federal Confidentiality of Alcohol and Drug Abuse Patient Records regulations: The Federal rules restrict any use of the information to criminally investigate or prosecute any alcohol or drug abuse patient.[facility]onIn the event this information is protected by the Federal Confidentiality of Alcohol and Drug Abuse Patient Records regulations: The Federal rules restrict any use of the information to criminally investigate or prosecute any alcohol or drug abuse patient.[facility]onIn the event this information is protected by the Federal Confidentiality of Alcohol and Drug Abuse Patient Records regulations: The Federal rules restrict any use of the information to criminally investigate or prosecute any alcohol or drug abuse patient.[facility]onIn the event this information is protected by the Federal Confidentiality of Alcohol and Drug Abuse Patient Records regulations: The Federal rules restrict any use of the information to criminally investigate or prosecute any alcohol or drug abuse patient.[facility]onIn the event this information is protected by the Federal Confidentiality of Alcohol and Drug Abuse Patient Records regulations: The Federal rules restrict any use of the information to criminally investigate or prosecute any alcohol or drug abuse patient.[facility]onIn the event this information is protected by the Federal Confidentiality of Alcohol and Drug Abuse Patient Records regulations: The Federal rules restrict any use of the information to criminally investigate or prosecute any alcohol or drug abuse patient.[facility]onIn the event this information is protected by the Federal Confidentiality of Alcohol and Drug Abuse Patient Records regulations: The Federal rules restrict any use of the information to criminally investigate or prosecute any alcohol or drug abuse patient.[facility]onIn the event this information is protected by the Federal Confidentiality of Alcohol and Drug Abuse Patient Records regulations: The Federal rules restrict any use of the information to criminally investigate or prosecute any alcohol or drug abuse patient.[facility]onIn the event this information is protected by the Federal Confidentiality of Alcohol and Drug Abuse Patient Records regulations: The Federal rules restrict any use of the information to criminally investigate or prosecute any alcohol or drug abuse patient.[facility]onIn the event this information is protected by the Federal Confidentiality of Alcohol and Drug Abuse Patient Records regulations: The Federal rules restrict any use of the information to criminally investigate or prosecute any alcohol or drug abuse patient.[facility]onIn the event this information is protected by the Federal Confidentiality of Alcohol and Drug Abuse Patient Records regulations: The Federal rules restrict any use of the information to criminally investigate or prosecute any alcohol or drug abuse patient.[facility]onIn the event this information is protected by the Federal Confidentiality of Alcohol and Drug Abuse Patient Records regulations: The Federal rules restrict any use of the information to criminally investigate or prosecute any alcohol or drug abuse patient.[facility]onIn the event this information is protected by the Federal Confidentiality of Alcohol and Drug Abuse Patient Records regulations: The Federal rules restrict any use of the information to criminally investigate or prosecute any alcohol or drug abuse patient.[facility]onIn the event this information is protected by the Federal Confidentiality of Alcohol and Drug Abuse Patient Records regulations: The Federal rules restrict any use of the information to criminally investigate or prosecute any alcohol or drug abuse patient.[facility]onIn the event this information is protected by the Federal Confidentiality of Alcohol and Drug Abuse Patient Records regulations: The Federal rules restrict any use of the information to criminally investigate or prosecute any alcohol or drug abuse patient.[facility]onIn the event this information is protected by the Federal Confidentiality of Alcohol and Drug Abuse Patient Records regulations: The Federal rules restrict any use of the information to criminally investigate or prosecute any alcohol or drug abuse patient.[facility]onIn the event this information is protected by the Federal Confidentiality of Alcohol and Drug Abuse Patient Records regulations: The Federal rules restrict any use of the information to criminally investigate or prosecute any alcohol or drug abuse patient.[facility]onIn the event this information is protected by the Federal Confidentiality of Alcohol and Drug Abuse Patient Records regulations: The Federal rules restrict any use of the information to criminally investigate or prosecute any alcohol or drug abuse patient.[facility]onIn the event this information is protected by the Federal Confidentiality of Alcohol and Drug Abuse Patient Records regulations: The Federal rules restrict any use of the information to criminally investigate or prosecute any alcohol or drug abuse patient.[facility]onIn the event this information is protected by the Federal Confidentiality of Alcohol and Drug Abuse Patient Records regulations: The Federal rules restrict any use of the information to criminally investigate or prosecute any alcohol or drug abuse patient.[facility]onIn the event this information is protected by the Federal Confidentiality of Alcohol and Drug Abuse Patient Records regulations: The Federal rules restrict any use of the information to criminally investigate or prosecute any alcohol or drug abuse patient.[facility]onIn the event this information is protected by the Federal Confidentiality of Alcohol and Drug Abuse Patient Records regulations: The Federal rules restrict any use of the information to criminally investigate or prosecute any alcohol or drug abuse patient.[facility] Care Teams (unrecognized sec tion and content) Team Status: Active Member Role Status Sean Velazquez MD Primary Care Provider Active Team Status: Inactive Member Role Status Sean Velazquez MD Primary Care Provider Active St art: October 18, 2024 End: October 18, 2024Stephen Tann , MDAttending ProviderActiveStart: October 18, 2024 End: October 18, 2024 Team Status: Inactive Member Role Status Sean Velazquez MD Primary Care Provider Active St art: October 18, 2024 End: October 18, 2024RobPALAK Rangelefjameeling ProviderActiveStart: October 18, 2024 End: October 18, 2024Stephen Tann , MDAttending ProviderActiveStart: October 18, 2024 End: October 18, 2024 Team Status: Inactive Member Role Status Sean Velazquez MD Primary Care Provider Active St art: November 16, 2024 End: November 16John Corteztenmónica ProviderActiveStart: November 16, 2024 End: November 16, 2024 Team Status: Inactive Member Role Status Sean Velazquez MD Primary Care Provider Active St art: December 14, 2024 End: December 14John Corteztenmónica ProviderActiveStart: December 14, 2024 End: December 14, 2024 Team Status: Active Member Role Status Sean Velazquez MD Primary Care Provider Active St art: August 24, 2024 Jie Davies RN MSN ANP-COther ProviderActiveStart: August 24, 2024 Iveth Ding MDAttending ProviderActiveStart: August 24, 2024 Team Status: Active Member Role Status Sean Velazquez MD Primary Care Provider Active St art: September 14, 2024 Jie Davies RN MSN ANP-COther ProviderActiveStart: September 14, 2024 Jassi aFir MDAttending ProviderActiveStart: September 14, 2024 Team Status: Active Member Role Status Sean Velazquez MD Primary Care Provider Active St art: October 18, 2024 Kurt Sánchez MDAttending ProviderActiveStart: October 18, 2024 Team MemberRelationshipSpecialtyStart DateEnd Date Vero Goldsmith, DO [address] [place] [id number] ReferringObstetrics10/13/22Team MemberRelationshipSpecialtyStart DateEnd Date Vero Goldsmith, DO [address] [place] [address] ReferringObstetrics10/13/22Team MemberRelationshipSpecialtyStart DateEnd Date Vero Goldsmith, DO [address] [place] [address] ReferringObstetrics7/18/23Team MemberRelationshipSpecialtyStart DateEnd Date Vero Goldsmith, DO [address] [place] [address] ReferringObstetrics7/18/23Team MemberRelationshipSpecialtyStart DateEnd Date Vero Goldsmith, DO [address] [place] [address] ReferringObstetrics7/18/23Team MemberRelationshipSpecialtyStart DateEnd Date Vero Goldsmith, DO [address] [place] [address] ReferringObstetrics7/18/23Team MemberRelationshipSpecialtyStart DateEnd Date Vero Goldsmith, DO [address] [place] [address] ReferringObstetrics7/18/23Team MemberRelationshipSpecialtyStart DateEnd Date Vero Goldsmith, DO [address] [place] [address] ReferringObstetrics7/18/23Team MemberRelationshipSpecialtyStart DateEnd Date Vero Goldsmith, DO [address] [place] [address] ReferringObstetrics7/18/23Team MemberRelationshipSpecialtyStart DateEnd Date Vero Goldsmith, DO [address] [place] [address] ReferringObstetrics7/18/23Team MemberRelationshipSpecialtyStart DateEnd Date Vero Goldsmith, DO [address] [place] [address] ReferringObstetrics7/18/23Team MemberRelationshipSpecialtyStart DateEnd Date Vero Goldsmith, DO [address] [place] [address] ReferringObstetrics7/18/23Team MemberRelationshipSpecialtyStart DateEnd Date Vero Goldsmith, DO [address] [place] [address] ReferringObstetrics7/18/23Team MemberRelationshipSpecialtyStart DateEnd Date Vero Goldsmith, DO [address] [place] [address] ReferringObstetrics7/18/23Team MemberRelationshipSpecialtyStart DateEnd Date Vero Goldsmith, DO [address] [place] [address] ReferringObstetrics7/18/23Team MemberRelationshipSpecialtyStart DateEnd Date Vero Goldsmith, DO [address] [place] [address] ReferringObstetrics7/18/23Team MemberRelationshipSpecialtyStart DateEnd Date Vero Goldsmith, DO [address] [place] [address] ReferringObstetrics10/13/22Team MemberRelationshipSpecialtyStart DateEnd Date Vero Goldsmith DO [address] [place] [address] ReferringObstetrics10/13/22Team MemberRelationshipSpecialtyStart DateEnd Date Vero Goldsmith, [address] [place] [address] ReferringObstetrics10/13/22Team MemberRelationshipSpecialtyStart DateEnd Date Lito Velazquez MD [address] [address] [place] [address] PCP - GeneralInternal Medicine10/05/22Team MemberRelationshipSpecialtyStart Date End Date Lito Velazquez MD [address] [place] [address] PCP - GeneralInternal Medicine10/05/22Team MemberRelationshipSpecialtyStart Date End Date Lito Velazquez MD [address] [place] [phone] PCP - GeneralInternal Fssoyeoe79/18/24Team MemberRelationshipSpecialtyStart Date End Date Vero Goldsmith, DO [address] [place] [phone] ReferringObstetrics10/13/22Team MemberRelationshipSpecialtyStart DateEnd Date Lito Velazquez MD [address] [place] [address] PCP - GeneralInternal Medicine10/05/22am MemberRelationshipSpecialtyStart Date End Date Vero Goldsmith DO [address] [place] [phone] ReferringObstetrics10/13/22 MemberRelationshipSpecialtyStart DateEnd Date Lito Velazquez MD [address] [place] [address] PCP - GeneralInternal Medicine10/05/22am MemberRelationshipSpecialtyStart Date End Date Lito Velazquez MD [address] [place] [address] PCP - GeneralInternal Medicine10/05/22am MemberRelationshipSpecialtyStart Date End Date Lito Velazquez MD [address] [place] [address] PCP - GeneralInternal Medicine10/05/22am MemberRelationshipSpecialtyStart Date End Date Lito Velazquez MD [address] [place] [address] PCP - GeneralInternal Medicine10/05/22am MemberRelationshipSpecialtyStart Date End Date Lito Velazquez MD [address] [place] [address] PCP - GeneralInternal Medicine10/05/22Team MemberRelationshipSpecialtyStart Date End Date Vero Goldsmith DO [address] [place] [phone] ReferringObstetrics10/13/22 [place] [address] [place] [address] Registered Nurse04/12/24Team MemberRelationshipSpecialtyStart DateEnd Date Lito Velazquez MD [address] [place] [address] PCP - GeneralInternal Medicine10/05/22Team MemberRelationshipSpecialtyStart Date End Date Lito Velazquez MD [address] [place] [address] PCP - GeneralInternal Medicine10/05/22Team MemberRelationshipSpecialtyStart Date End Date Lito Velazquez MD [address] [place] [address] PCP - GeneralInternal Medicine10/05/22Team MemberRelationshipSpecialtyStart Date End Date Lito Velazquez MD [address] [place] [address] PCP - GeneralInternal Medicine10/05/22 Team Status: Inactive Member Role Status Dates Lito Velazquez MD Primary Care Provider Active St art: August 24, 2024 End: August 24, 2024Jie Davies RN MSN ANP-CAttending ProviderActiveStart: August 24, 2024 End: August 24, 2024Team MemberRelationshipSpecialtyStart DateEnd Date Vero Goldsmith DO [address] [place] [phone] ReferringObstetrics10/13/22 [place] [address] [facility] [place] [address] Specialty Care Coordinator04/12/24Te MemberRelationshipSpecialtyStart DateEnd Date Lito Velazquez MD [address] [place] [address] PCP - GeneralInternal Medicine10/05/22Team MemberRelationshipSpecialtyStart Date End Date Lito Velazquez MD [address] [place] [address] PCP - GeneralInternal Medicine10/05/22Team MemberRelationshipSpecialtyStart Date End Date Lito Velazquez MD [address] [place] [address] PCP - GeneralInternal Medicine10/05/22Team MemberRelationshipSpecialtyStart Date End Date Lito Velazquez MD [address] [place] [address] PCP - GeneralInternal Medicine10/05/22Team MemberRelationshipSpecialtyStart Date End Date Lito Velazquez MD [address] [place] [address] PCP - GeneralInternal Medicine10/05/22Team MemberRelationshipSpecialtyStart Date End Date Vero Goldsmith DO [address] [place] [address] ReferringObstetrics10/13/22 [place] [address] [place] [address] Specialty Care Coordinator04/12/24 MemberRelationshipSpecialtyStart DateEnd Date Lito Velazquez MD [address] [place] [address] PCP - GeneralInternal Medicine10/05/22 MemberRelationshipSpecialtyStart Date End Date Lito Velazquez MD [address] [place] [address] PCP - GeneralInternal Medicine10/05/22 MemberRelationshipSpecialtyStart Date End Date Lito Velazquez MD [address] [place] [address] PCP - GeneralInternal Medicine10/05/22 MemberRelationshipSpecialtyStart Date End Date Lito Velazquez MD [address] [place] [address] PCP - GeneralInternal Medicine10/05/22 MemberRelationshipSpecialtyStart Date End Date Lito Velazquez MD [address] [place] [address] PCP - GeneralInternal Medicine10/05/22am MemberRelationshipSpecialtyStart Date End Date Lito Velazquez MD [address] [place] [address] PCP - GeneralInternal Medicine10/05/22Team MemberRelationshipSpecialtyStart Date End Date Lito Velazquez MD [address] [place] [address] PCP - GeneralInternal Medicine10/05/22Team MemberRelationshipSpecialtyStart Date End Date Vero Goldsmith [address] [facility] [address] [place] [address] ReferringObstetrics10/13/22 [place] [address] [place] [address] Specialty Care Coordinator04/12/24 Goals (unrecognized section and content) Goals may [...] BE BASED ON THE PRIMARY CLINICAL RECORDS. [employer] [facility]. provides no warranty or guarantee of the accuracy or completeness of information in this document.
--- OUTSIDE RECORDS SUMMARY | 2025-03-02 04:51 | XMS_ITS | Clinical Summary ---
Author Organization [facility] Address [address] [place] [address] Phone Care Team Providers Care [employer] Engineer Name Role Phone Omer Velazquez MD Primary Care Provider [phone] Allergies No known active allergies Medications MedicationSigDispense QuantityRefillsLast FilledStart DateEnd DateStatus letrozole (Femara) 2.5 mg tablet Take 1 tablet (2.5 mg total) by mouth every other day.01/04/2023ctive metFORMIN (Glucophage) 500 mg tablet Take 2 tablets (1,000 mg) by mouth once daily.Active chorionic gonadotropin (Pregnyl) 10,000 unit injection 10,000 Units.02/17/2024ctive fluticasone (Flonase) 50 mcg/actuation nasal spray Indications:Chronic allergic rhinitisAdminister 2 sprays into each nostril once daily. 48 mL ctive Active Problems No known active problems Social History Tobacco UseTypesPacks/DayYears UsedDateSmoking Tobacco: NeverSmokeless Tobacco: Never Tobacco Cessation:Counseling Given: Not Answered CommentsUnknownSex and Gender InformationValueDate RecordedSex Assigned at BirthNot on fileLegal NtzUkzwni03/18/2024 1:32 PM ESTGender IdentityNot on fileSexual OrientationNot on file Last Filed Vital Signs Vital SignReadingTime TakenCommentsBlood Jwdlulxh654/9003/08/2024 10:25 AM EST Pulse--Ftkzrladehx67.3 ??C (97.4 ??F)03/08/2024 10:25 AM ESTRespiratory Rate-- Oxygen Saturation--Inhaled Oxygen Concentration--Wuelrx336 kg (226 lb)03/08/2024 10:25 AM AOMKnlbdo249 cm (5' 3 )03/08/2024 10:25 AM ESTBody Mass Index40.03 03/08/2024 10:25 AM EST Plan of Treatment Health MaintenanceDue DateLast DoneCommentsHIV Afaccmjmc22/06/1996Lipid Panel 1995COVID-19 Vaccine (#1)2000Hepatitis C Fezagjykd82/06/2014 Hepatitis A Vaccines (1 of 2 - Risk 2-dose series)2014Cervical Cancer Lwevcdbkg71/06/2017HPV/Yxvsem6804/03/2016Pap Smear2016Influenza Vaccine (#1) , 02/13/2009Yearly Adult Gfjnjngb97/20/37150404/16/2023, 07/13/2023, 3DTaP/Tdap/Td Vaccines (7 - Td or Tdap)06/26/2032 06/26/2022, 08/10/2000, 08/04/1996, Additional history existsZoster Vaccines (1 of 2)6008/04/1996Hepatitis B IivsaqmxPbqcijxcb12/20/1996, 1995, 1995HIB DlldoxmfRkyjkkoao91/09/1997, 03/17/1996, 1995, Additional history existsIPV TosojglaUftplfboy17/15/2001, 03/17/1996, 1995, Additional history existsMeningococcal VaccineAged Out08/12/2006No longer eligible based on patient's age to complete this topicHPV VaccinesCompleted 08/12/2015, 04/10/2015, 12/05/2014MMR IjsodcgiGssteqrlc32/06/2024, 08/10/2000, 04/21/1996Pneumococcal Vaccine: Pediatrics and At-Risk Adult PatientsAged OutNo longer eligible based on patient's age to complete this topicRotavirus Vaccines Aged OutNo longer eligible based on patient's age to complete this topic Insurance MemberSubscriberPlan / Payer (Effective 2024-Present)Name:Lissa Rivas Relation to Subscriber:SpouseName:Brenton Rivas Payer ID:Not on file Type:Not on file Address: [address] [place] [phone] Care Teams Team MemberRelationshipSpecialtyStart DateEnd Omer Velazquez MD [address] [place] [address] PCP - GeneralInternal Amqjrumo05/18/24
--- OUTSIDE RECORDS SUMMARY | 2025-03-02 04:51 | XMS_ITS | Clinical Summary ---
Author Organization [employer] Address [id number] [address] [place] [address] Care Team Providers Care Receptionist Scheduler Name Role Phone Unavailable Primary Care Provider Unavailabl e Allergies No known active allergies Medications MedicationSigDispense QuantityRefillsLast FilledStart DateEnd DateStatus rp414-mfux-luelc acid ( 19) 29 mg iron- 1 mg tablet,chewable Chew 1 tablet and swallow in the morning.Active blood-glucose sensor (DEXCOM G7 SENSOR) device Indications:Gestational diabetes requiring insulin,Elevated blood pressure affecting , antepartumUse to monitor blood glucose. Change every 10 days 5 each 5Active acyclovir (ZOVIRAX) 400 mg tablet Take 1 tablet (400 mg total) by mouth in the morning and 1 tablet (400 mg total) before bedtime.Active ferrous sulfate 325 (65 FE) MG tablet Take 1 tablet (325 mg total) by mouth daily with breakfast.Active acetaminophen (TYLENOL EXTRA STRENGTH) 500 mg tablet Take 2 tablets (1,000 mg total) by mouth every 8 (eight) hours. 30 tablet 5Active docusate sodium (COLACE) 100 mg capsule Take 1 capsule (100 mg total) by mouth in the morning and 1 capsule (100 mg total) before bedtime. 60 capsule 5Active ibuprofen (MOTRIN) 800 mg tablet Take 1 tablet (800 mg total) by mouth every 8 (eight) hours. 30 tablet 5Active Active Problems ProblemNoted DateDiagnosed ObfqZdpyatylnhaq40/04/2025Non-sustained ventricular bhvjluaqozk52/28/2025Pre-eclampsia in third ggjvdujbq74/28/2025Gestational diabetes requiring lirpvnb6210/23/2024Insulin controlled gestational diabetes mellitus (GDM) in third bwqmlgzqa84/17/2025bnormal liver kltgeyf9309/12/2024 Elevated blood pressure affecting , jvtdwbiadi98/17/2025 Immunizations ImmunizationAdministration DatesNext DueRho (D) Immune Fmqxbjaf73/05/2025 Family History Medical HistoryRelationNameCommentsAsthmaFatherAtrial fibrillationFatherCOPD FatherDiabetesFatherHeart diseaseFatherHyperlipidemiaFatherHypertensionFather Kidney diseaseFatherStrokeFatherBil Breast CancerMaternal AuntBil Breast Cancer Maternal GrandmotherLung cancerMaternal UncleProstate cancerMaternal Uncle HypertensionMotherArthritisPaternal GrandmotherAtrial fibrillationPaternal GrandmotherCOPDPaternal GrandmotherDiabetesPaternal GrandmotherHeart disease Paternal GrandmotherStrokePaternal GrandmotherAtrial fibrillationSisterRelation NameStatusCommentsFatherMaternal AuntAliveMaternal GrandmotherMaternal Uncle AliveMotherPaternal GrandmotherSister Social History Tobacco UseTypesPacks/DayYears UsedDateSmoking Tobacco: NeverSmokeless Tobacco: Never Tobacco Cessation:Counseling Given: Not Answered Alcohol UseStandard Drinks/WeekCommentsNot Currently0 (1 standard drink = 0.6 oz pure alcohol)Hunger ScreeningAnswerDate RecordedWithin the past 12 months we worried whether our food would run out before we got money to buy more.Never True11/03/2024Within the past 12 months the food we bought just didn't last and we didn't have money to get more.Never True11/03/2024CommentsNoSex and Gender InformationValueDate RecordedSex Assigned at BirthNot on fileLegal Sex Svgftj8708/29/2024 1:21 PM EDTGender IdentityNot on fileSexual OrientationNot on file Last Filed Vital Signs Vital SignReadingTime TakenCommentsBlood Syoahfwk119/7708 10:30 AM EDT Etmru290911/03/2024 10:30 AM OPXOowmgjlkajx40.9 ??C (98.4 ??F)11/03/2024 8:34 AM EDTRespiratory Ugsl7041/10/2024 8:34 AM EDTOxygen Nxznohizpp151%10/31/2024 11:00 PM EDTInhaled Oxygen Concentration--Hdoolq664.7 kg (222 lb)11/03/2024 8:46 AM ZVTUbzets016 cm (5' 3 )11/03/2024 8:46 AM EDTBody Mass Index39.33011/03/2024 8:46 AM EDT Plan of Treatment Health MaintenanceDue DateLast DoneCommentsDepression Rsteeedgt63/06/2008dult BMI Follow Up Plan2013Influenza Fwkcmjb41/06/2014, 02/13/2009 Adult BMI Axgzglrvi94Tobacco Jlxyciars56Pap SmearDTaP,Tdap and Td Vaccines (7 - Td or Tdap)06/26/2032 06/26/2022, 08/10/2000, 08/04/1996, Additional history exists Medical Devices Not on file Insurance Advance Directives * Full Code (Latest Code Status on File) Date ActivatedDate InactivatedComments10/30/2024 8:22 AM11/02/2024 6:10 PM
[2025-03-02] MEDS: KETOROLAC TROMETHAMINE 30 MG/ML VIAL IVP (05:12)
[2025-03-02 05:18] LABS: Hematocrit 38.0 % (36.0-48.0); Hemoglobin 12.8 g/dL (12.0-16.0); Immature Granulocytes Abs Auto 0.01 10^3/uL (0.00-0.03); Immature Granulocytes Pct Auto 0.1 % (0.0-0.5); Lymphocytes Absolute Auto 1.8 10^3/uL (1.2-3.8); Mean Corpuscular HGB Conc 33.7 g/dL (29.9-35.2); Mean Corpuscular Hemoglobin 29.7 pg (26.7-34.0); Mean Corpuscular Volume 88.2 fL (81.0-99.0); Platelet Count 229 10^3/uL (150-450); Red Blood Count 4.31 10^6/uL (4.20-5.40); White Blood Count 6.7 10^3/uL (4.0-11.0)
[2025-03-02 05:35] LABS: Alanine Aminotransferase 305 U/L (14-59); Albumin Globulin Ratio 1.1; Albumin Level 3.8 g/dL (3.4-5.0); Alkaline Phosphatase 105 U/L (46-116); Anion Gap 12.9; Aspartate Amino Transferase 358 U/L (15-37); Blood Urea Nitrogen 15.0 mg/dL (7.0-18.0); Calcium 9.2 mg/dL (8.5-10.1); Carbon Dioxide 26.1 mmol/L (21.0-32.0); Chloride 109 mmol/L (98-107); Estimated GFR (African America >60 (>=60 mL/min/1.73m^2); Estimated GFR (Non-African Ame >60 (>=60 mL/min/1.73m^2); Globulin 3.4 g/dL; Glucose 108 mg/dL (74-106); Lipase 41.0 U/L (16.0-77.0); Potassium 4.0 mmol/L (3.5-5.1); Sodium 144 mmol/L (136-145); Total Protein 7.2 g/dL (6.4-8.2)
--- NOTE | 2025-03-02 05:44 | PC.NURSE ---
Patient states the pain in her upper back was improved with the Toradol, however the pain in her abdomen is still a constant 7/10 and increases to 9/10 with any pressure applied to her abdomen. She is not opposed to getting a stronger pain medication, and states she has breast milk in the freezer at home she can give to her baby if she needs to pump and dump due to receiving any medications here today. Dr. Rubio is notified.
--- NOTE | 2025-03-02 05:52 | CT_ITS ---
[address] [address] Patient Name: LITO ROJAS MRN: [id number] date: 1995 Sex: F Assigned Patient Location: ED.MAIN Current Patient Location: ED.MAIN Accession/Order Number: [id number] Exam Date: 03/02/2025 06:15 Report Date: 03/02/2025 07:27 At the request of: ANGELICA WALKER MD Procedure: CT angio chest CTA CHEST, ABDOMEN AND PELVIS WITH CONTRAST CLINICAL DATA: Back and upper abdominal pain. 4 months . Elevated d-dimer. COMPARISON: None Spiral images were obtained through the chest, abdomen and pelvis following 100 mL of Omnipaque 350. Sagittal and coronal MIP as well as 3-D volume rendered reconstructions of the pulmonary arteries and aorta were reviewed. Images of the chest were evaluated using narrow and wide window settings. This CT exam was performed using one or more following dose reduction techniques: Automated exposure control, adjustment of the mA and/or kV according to patient size, or use of iterative reconstruction technique. The heart is slightly prominent. There is no pericardial effusion. There is no aortic aneurysm. There is suspected pulsation artifact with ghosting at the aortic root. No definite dissection is seen. The pulmonary arteries are adequately opacified. No emboli are visualized. There is minor respiratory motion. Minimal atelectasis is seen. There is no focal consolidation, pleural effusion or pneumothorax. The bony structures are intact. There are no intrahepatic abnormalities. No calcified gallstones are seen. The spleen, pancreas and adrenal glands show no acute findings. There are symmetric renal nephrograms, without hydronephrosis. The abdominal aorta is normal caliber. No dissection is identified. There is normal opacification of the visceral arteries. Tiny lymph nodes are present. No ascites is seen. There is fluid and food debris within the stomach. The small bowel loops within normal limits for caliber. There is mild air and stool within the colon. There is a small umbilical hernia containing fat. No osseous abnormalities are visualized. Images through the pelvis show a normal appendix. No dilated small bowel loops are noted. There is a small amount of distal colonic stool. No diverticular disease is seen. The urinary bladder is within normal limits. There is no ascites. CT/CT angio abdomen pelvis IMPRESSION: NO ACUTE FINDINGS. Impression dictated by: Paula Gage M.D. 03/02/2025 7:27 AM Dictation Location: [place] [address] Electronically authenticated by: [id number] Y Date: 03/02/2025 07:27
--- NOTE | 2025-03-02 05:52 | CT_ITS ---
[address] [address] Patient Name: LITO ROJAS MRN: [id number] date: 1995 Sex: F Assigned Patient Location: ED.MAIN Current Patient Location: ED.MAIN Accession/Order Number: [id number] Exam Date: 03/02/2025 06:15 Report Date: 03/02/2025 07:27 At the request of: ANGELICA WALKER MD Procedure: CT angio chest CTA CHEST, ABDOMEN AND PELVIS WITH CONTRAST CLINICAL DATA: Back and upper abdominal pain. 4 months . Elevated d-dimer. COMPARISON: None Spiral images were obtained through the chest, abdomen and pelvis following 100 mL of Omnipaque 350. Sagittal and coronal MIP as well as 3-D volume rendered reconstructions of the pulmonary arteries and aorta were reviewed. Images of the chest were evaluated using narrow and wide window settings. This CT exam was performed using one or more following dose reduction techniques: Automated exposure control, adjustment of the mA and/or kV according to patient size, or use of iterative reconstruction technique. The heart is slightly prominent. There is no pericardial effusion. There is no aortic aneurysm. There is suspected pulsation artifact with ghosting at the aortic root. No definite dissection is seen. The pulmonary arteries are adequately opacified. No emboli are visualized. There is minor respiratory motion. Minimal atelectasis is seen. There is no focal consolidation, pleural effusion or pneumothorax. The bony structures are intact. There are no intrahepatic abnormalities. No calcified gallstones are seen. The spleen, pancreas and adrenal glands show no acute findings. There are symmetric renal nephrograms, without hydronephrosis. The abdominal aorta is normal caliber. No dissection is identified. There is normal opacification of the visceral arteries. Tiny lymph nodes are present. No ascites is seen. There is fluid and food debris within the stomach. The small bowel loops within normal limits for caliber. There is mild air and stool within the colon. There is a small umbilical hernia containing fat. No osseous abnormalities are visualized. Images through the pelvis show a normal appendix. No dilated small bowel loops are noted. There is a small amount of distal colonic stool. No diverticular disease is seen. The urinary bladder is within normal limits. There is no ascites. CT/CT angio chest IMPRESSION: NO ACUTE FINDINGS. Impression dictated by: Paula Gage M.D. 03/02/2025 7:27 AM Dictation Location: [place] [address] Electronically authenticated by: [id number] Y Date: 03/02/2025 07:27
[2025-03-02] MEDS: HYDROMORPHONE HCL 1 MG/ML CARTRIDGE IV (06:03)
--- NOTE | 2025-03-02 07:45 | ED.GENADUL1 ---
HPI HPI - General Adult General Chief complaint: Back Pain/Injury Stated complaint: CHEST PAIN, UPPER BACK PAIN, NAUSEA Time Seen by Provider: 03/02/25 04:27 Source: patient Mode of arrival: walk-in Limitations: no limitations History of Present Illness HPI narrative: 29-year-old female presented to the emergency department and was initially seen by Dr. Rubio and signed out to me after discussing the case with her thoroughly. Please see her full history and physical exam. Related Data Previous Rx's ?Medication ?Instructions ?Recorded ondansetron 4 mg disintegrating 4 mg PO Q6H PRN nausea and 03/02/25 tablet vomiting #20 tabs Allergies Allergy/AdvReac Type Severity Reaction Status Date / Time No Known Drug Allergies Allergy Verified 03/02/25 04:36 Opioid HPI Opioid Management Most Recent Opioid Data: Last Pain Scale 8 Today, 06:03 Last MAR Pain Assessment Today, 06:03 Ur Phencyclidine Scrn, (NEGATIVE) Negative 04/21/24, 16:18 PFSH PFSH Social History Little interest or pleasure in doing things: not at all Feeling down, depressed, or hopeless: not at all Exam Constitutional Vital Signs, click to edit/add: Last Vital Signs Temp 97.7 F 03/02/25 04:28 Pulse 81 03/02/25 04:28 Resp 16 03/02/25 04:28 BP 148/96 H 03/02/25 04:28 Pulse Ox 98 03/02/25 04:28 O2 Del Method Room Air 03/02/25 04:28 Course Vital Signs Vital signs: Vital Signs Temperature 97.7 F 03/02/25 04:28 Pulse Rate 81 03/02/25 04:28 Respiratory Rate 16 03/02/25 04:28 Blood Pressure 148/96 H 03/02/25 04:28 Pulse Oximetry 98 03/02/25 04:28 Oxygen Delivery Method Room Air 03/02/25 04:28 Temperature 97.7 F 03/02/25 04:28 Pulse Rate 81 03/02/25 04:28 Respiratory Rate 16 03/02/25 04:28 Blood Pressure 148/96 H 03/02/25 04:28 Pulse Oximetry 98 03/02/25 04:28 Oxygen Delivery Method Room Air 03/02/25 04:28 Medical Decision Making MDM Narrative Medical decision making narrative: ALT and AST have mild elevation. Total bilirubin is normal. CTA chest, abdomen, and pelvis is negative per radiologist with mild amount of stool. Findings are discussed with the patient. She does not require admission in the hospital and she will follow-up with her physician regarding the symptoms and the mild elevation in the LFTs. She reports that she had some elevation of her LFTs when she was and she delivered 4 months ago. Treatment diagnosis and follow-up were discussed with the patient. Differential Diagnosis Differential Diagnosis: Gallbladder disease, pancreatitis, constipation Lab Data Lab results reviewed: Yes I reviewed the patient's lab results Labs: Lab Results 03/02/25 Range/Units 05:00 WBC 6.7 (4.0-11.0) 10^3/uL RBC 4.31 (4.20-5.40) 10^6/uL Hgb 12.8 (12.0-16.0) g/dL Hct 38.0 (36.0-48.0) % MCV 88.2 (81.0-99.0) fL MCH 29.7 (26.7-34.0) pg MCHC 33.7 (29.9-35.2) g/dL RDW 14.4 (11.0-15.0) % Plt Count 229 (150-450) 10^3/uL MPV 10.6 (9.5-13.5) fL Neut % (Auto) 60.8 (43.0-75.0) % Lymph % (Auto) 27.0 (20.5-60.0) % Grundy % (Auto) 7.5 (1.7-12.0) % Eos % (Auto) 3.7 (0.9-7.0) % Baso % (Auto) 0.9 (0.2-2.0) % Neut # (Auto) 4.1 (1.4-6.5) 10^3/uL Lymph # (Auto) 1.8 (1.2-3.8) 10^3/uL Grundy # (Auto) 0.5 (0.3-0.8) 10^3/uL Eos # (Auto) 0.3 (0.0-0.7) 10^3/uL Baso # (Auto) 0.1 (0.0-0.1) 10^3/uL Abs Immat Gran (auto) 0.01 (0.00-0.03) 10^3/uL Imm/Tot Granulo (auto) 0.1 (0.0-0.5) % D-Dimer 0.95 H* (<=0.59) mg/L FEU Sodium 144 (136-145) mmol/L Potassium 4.0 (3.5-5.1) mmol/L Chloride 109 H (98-107) mmol/L Carbon Dioxide 26.1 (21.0-32.0) mmol/L Anion Gap 12.9 BUN 15.0 (7.0-18.0) mg/dL Creatinine 0.81 (0.55-1.02) mg/dL Est GFR ( Amer) >60 (>=60 mL/min/1.73m^2) Est GFR (Non-Af Amer) >60 (>=60 mL/min/1.73m^2) BUN/Creatinine Ratio 18.5 Glucose 108 H (74-106) mg/dL Calcium 9.2 (8.5-10.1) mg/dL Total Bilirubin 1.0 (0.2-1.0) mg/dL AST 358 H (15-37) U/L ALT 305 H (14-59) U/L Alkaline Phosphatase 105 (46-116) U/L Troponin I High Sens 4.5 (4.0-51.3) pg/mL Total Protein 7.2 (6.4-8.2) g/dL Albumin 3.8 (3.4-5.0) g/dL Globulin 3.4 g/dL Albumin/Globulin Ratio 1.1 Lipase 41.0 (16.0-77.0) U/L Imaging Data CT scan - abdomen: Radiologist's impression: ITS Impressions Abdomen/Pelvis CTA 03/02/25 05:52 IMPRESSION: NO ACUTE FINDINGS. Impression dictated by: Paula Gage M.D. 03/02/2025 7:27 AM Dictation Location: [place] Electronically authenticated by: [id number] Y Date: 03/02/2025 07:27 Chest CTA 03/02/25 05:52 IMPRESSION: NO ACUTE FINDINGS. Impression dictated by: Paula Gage M.D. 03/02/2025 7:27 AM Dictation Location: [place] Electronically authenticated by: [id number] Y Date: 03/02/2025 07:27 Discharge Plan Discharge Chief Complaint: Back Pain/Injury Clinical Impression: Abdominal pain, RUQ Patient Disposition: Home, Self-Care Time of Disposition Decision: 07:44 Condition: Good Mode of Transportation: Private Vehicle Prescriptions / Home Meds: New ondansetron 4 mg tablet,disintegrating 4 mg PO Q6H PRN (Reason: nausea and vomiting) Qty: 20 0RF Print Language: Nepali Instructions: Abdominal Pain (ED) Additional Instructions: Follow-up with your PCP regarding the liver function tests. Referrals: LITO GUERRERO [Primary Care Provider, Internal Medicine] - 1 week
== END 2025-03-02 08:08 | disposition home or self-care (01) ==
PROVIDERS: Emergency Medicine; Emergency Provider Emergency Medicine; PCP Internal Medicine
DX: R10.11 Right upper quadrant pain (principal); M54.9 Dorsalgia, unspecified; R07.9 Chest pain, unspecified; R11.0 Nausea; R74.01 Elevation of levels of liver transaminase levels; R79.1 Abnormal coagulation profile
CPT/HCPCS: 36415; 71275; 74174; 80053; 83690; 84484; 85025; 85378; 93005; 96374; 96375; 96376; 99285; J1171; J1885; J2405; Q9967

== ENCOUNTER 2025-03-20 08:27 | Emergency (ER) | payer OTHER, SELFPAY ==
--- OUTSIDE RECORDS SUMMARY | 2025-03-06 14:00 | XMS_ITS | Encounter Summary ---
Author Organization [facility] Address [address] [place] [address] Care Team Providers Care Towel Folder Name Role Phone Omer Velazquez MD Primary Care Provider [phone] Reason for Referral * Consultation (Routine) - Sent for SchedulingSpecialtyDiagnoses / Procedures Referred By ContactReferred To ContactSle Medicine Diagnoses Other fatigue Frequent nocturnal awakening Procedures [place] OFFICE/OUTPATIENT [facility]3] 60 MINUTES Omer Velazquez MD [address] [facility] [address] [place] [address] Phone: tel: fax: [facility] [address] [place] [address] fax: Referral IDStatusReasonStart DateExpiration DateVisits RequestedVisits [id number] for Scheduling Consult and Treat Reason for Visit * ReasonCommentsER Follow-up Encounter Details DateTypeDepartmentCare Team (Latest Contact Info)Snjvpbkhhma44/09/2025 2:00 PM ESTOffice Visit [facility] [address] [place] [address] Omer Velazquez MD [address] [place] [address] Abdominal pain, unspecified abdominal location (Primary Dx); Elevated LFTs; Dry skin; Frequent nocturnal awakening; Suspected sleep apnea; Constipation, unspecified constipation type; Other fatigue Social History Tobacco UseTypesPacks/DayYears UsedDateSmoking Tobacco: NeverSmokeless [...] drinks on one occasion?Never02/15/2024HQ-2AnswerDate RecordedPatient Health Questionnaire-2 Eyoae451CommentsUnknownSex and Gender InformationValueDate RecordedSex Assigned at BirthNot on fileLegal SexFemale 06/10/2022 7:14 PM EDTGender IdentityNot on fileSexual OrientationNot on file 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 Start DateJob End 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, 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 on fileNot on fileNot on filedocumented as of this encounter Last Filed Vital Signs Vital SignReadingTime TakenCommentsBlood Osoutylr012/7003/06/2025 2:02 PM EST Uhrno208703/06/2025 2:02 PM ESTTemperature--Respiratory Rate--Oxygen Gxdubtmzuv03% 03/06/2025 2:02 PM ESTInhaled Oxygen Concentration--Xzdqxa80 kg (205 lb) 03/06/2025 2:02 PM XSMFyogju516 cm (5' 3 )03/06/2025 2:02 PM ESTBody Mass Index 36.31105/07/2024 2:02 PM ESTdocumented in this encounter Progress Notes * Omer Velazquez MD - 03/06/2025 2:00 PM EST Images from the original note were not included. Lissa Rivas is a 29 y.o. female presents with chief complaint of ER Follow-up HPI: History of Present Illness The patient is a 29-year-old female who presents for follow-up after an emergency room visit. She presented to the emergency room with complaints of back pain on 03/02/2025. Her past medical history is significant for a 4 months ago. She experienced sudden onset of severe back pain at 10 PM, which was alleviated only when she assumed a eedan-ffr-dqoix position with her head down. After sleeping in this position for approximately 30 minutes, she was unable to sleep for the rest of the night due to the pain, which had radiated toher upper abdomen and chest. The pain was so intense that it caused her to wince upon palpation of the area where her rib cage terminates, and she was unable to sit upright. She sought emergency carethe same day. Her D-dimer levels were found to be elevated, prompting a CT scan of her chest and abdomen, which revealed no abnormalities. The attending physician suggested a possible gallbladder attack. She was discharged with pain medication, which effectively managed her pain. However, she experienced nausea for 2 days post-discharge, along with brown urine and a single white bowel movement. She has had no subsequent bowel movements. She reports no pain associated with eating or consuming fatty foods. She has not experienced a recurrence of the severe pain but continues to have dull upper back pain and general abdominal discomfort. She has lost between 35 to 40 pounds since her . She is currently and reports no issues with her baby's stool or urine. She is not taking any supplements or teas. She is not using any form of control and has completed her follow-up with [facility]. She believes her scar has healed well. She also reports leg pain and the development of rash patches on her arms. She has a history of extremely dry, sensitive, and peeling skin. She denies a history of eczema. She was transferred to [place] for delivery due to possible heart issues and while being monitored it was mentioned she may have sleep apnea. She does not snore but has experienced episodes of waking up gasping for air. She reports feeling tired regardless of the amount of sleep she gets as a baseline prior to . She had a 4 months ago. She went in to be induced and labored for 14 hours, which turned into an emergency . Her son was in the NICU for about 2 weeks due to breathing issues and then feeding issues. He was born at 37 weeks. Social History: Sleep: Reports feeling tired regardless of the amount of sleep she gets. PAST SURGICAL HISTORY: 4 months ago FAMILY HISTORY Her mother had gallbladder issues and is currently undergoing tests for an autoimmune disorder. I have reviewed and reconciled the history and medication list with the patient today. HISTORIES: PAST MEDICAL HISTORY: Medical History[1] SURGICAL HISTORY: Surgical History[2] SOCIAL HISTORY: Social History[3] Depression: Not at risk (07/18/2024) PHQ-2 PHQ-2 Score: 0 FAMILY HISTORY: Family History[4] MEDICATIONS: Current Outpatient Medications Medication Instructions acetaminophen-codeine (Tylenol w/ Codeine #3) 300-30 MG tablet 1 tablet, Every 6 hours PRN ibuprofen 800 mg, Every 8 hours MV-Min-Fe Fum-FA-DHA ( 1 PO) Take by mouth Not taking any medication ALLERGIES: Allergies[5] PHYSICAL EXAM: Visit Vitals OB Status Unknown Smoking Status Never BP Readings from Last 3 Encounters: 12/11/24 122/78 11/09/24 132/82 10/23/24 136/90 Wt Readings from Last 3 Encounters: 12/11/24 205 lb 11/09/24 205 lb 1.9 oz 10/23/24 228 lb Physical Exam Vitals and nursing note reviewed. Constitutional: Appearance: Normal appearance. HENT: Head: Normocephalic and atraumatic. Right Ear: Tympanic membrane normal. Left Ear: Tympanic membrane normal. Mouth/Throat: Mouth: Mucous membranes are moist. Eyes: Extraocular Movements: Extraocular movements intact. Pupils: Pupils are equal, round, and reactive to light. Cardiovascular: Rate and Rhythm: Normal rate and regular rhythm. Pulses: Normal pulses. Heart sounds: Normal heart sounds. Pulmonary: Effort: Pulmonary effort is normal. Breath sounds: Normal breath sounds. Abdominal: General: Bowel sounds are normal. Palpations: Abdomen is soft. Musculoskeletal: Cervical back: Normal range of motion and neck supple. Skin: General: Skin is warm and dry. Comments: Few dry patches of skin with mild erythema to her back and abdomen, overall all skin dry and flaky. No distinct pattern. Neurological: General: No focal deficit present. Mental Status: She is alert and oriented to person, place, and time. Mental status is at baseline. Psychiatric: Mood and Affect: Mood normal. Results Labs - AST: 10/2024, 33 - ALT: 10/2024, 36 - Alkaline Phosphatase: 10/2024, 83 - AST: 03/02/2025, 358 - ALT: 03/02/2025, 305 - Alkaline Phosphatase: 03/02/2025, 105 Imaging - CT scan of chest and abdomen: 03/02/2025, No acute findings, no intrahepatic abnormalities, no calcified gallstones, small umbilical hernia ASSESSMENT AND PLAN: Assessment & Plan 1. Abdominal pain - This is better than when she went to ER. - Will run some additional testing. - She is to call if things worsen again. 2. Elevated liver enzymes: - Liver function tests have shown a significant increase, indicating a potential issue with the liver. This could be due to a viral infection or an autoimmune response, particularly given the status. - Comprehensive blood workup will be conducted to rule out other types of hepatitis and autoimmune disorders. -Hepatic panel, hepatitis panel, amylase, lipase, autoimmune liver pannel 3. Dry skin: encourage OTC moisturizer 4. Suspected sleep apnea: - Frequent nocturnal awakening. - Persistent fatigue regardless of sleep duration and episodes of waking up gasping for air have been reported. - Refer to [facility] sleep lab for testing 5. Constipation -OTC stool softner -laxative if uneffective [1] Past Medical History: Diagnosis Date Anxiety Asthma (HCC) LORA (generalized anxiety disorder) GERD (gastroesophageal reflux disease) Herpes simplex PCOS (polycystic ovarian syndrome) Seasonal allergies [2] Past Surgical History: Procedure Laterality Date SECTION, CLASSIC 10/30/2024 [facility] SURGERY 03/2020 [facility]HA[facility]- Sid [3] Social History Tobacco Use Smoking status: Never Smokeless tobacco: Never Vaping Use Vaping status: Never Used Substance Use Topics Alcohol use: Never Comment: Caffeine intake:less than 100 mg daily Drug use: Never Comment: Pain killers [4] Family History Problem Relation Name Age of [...] Paternal Grandmother Hina Diabetes Paternal Grandmother Hina [5] No Known Allergies documented in this encounter Plan of Treatment DateTypeDepartmentCare Team (Latest Contact Info)Dtviohyzlai45/04/2026 11:00 AM ESTProcedure Visit [facility] [address] [address] Saravanan Ahumada DO [address] [place] [address] 07/24/2025 9:15 AM EDTOffice Visit [facility] [address] [place] [address] NameTypePriorityAssociated DiagnosesOrder ScheduleAmbulatory referral to Sleep MedicineOutpatient ReferralRoutine Other fatigue Frequent nocturnal awakening Expected: 03/06/2025 (Approximate), Expires: 09/04/2025documented as of this encounter Goals GoalPatient Goal TypeAssociated ProblemsRecent ProgressPatient-Stated?Author Reminders Care PlanOB RemindersNoOpen Scheduling, Backgrounddocumented as of this encounter Procedures Procedure NamePriorityDate/TimeAssociated DiagnosisCommentsAUTOIMMUNE LIVER DISEASE PROFILE (RDL)Smtmaab2603/14/2025 1:12 PM EST Abdominal pain, unspecified abdominal location Elevated LFTs HEPATITIS PANEL, PHNUJZlujkms41/17/2025 1:12 PM EST Abdominal pain, unspecified abdominal location Elevated LFTs GZIQPQRlfldzh77/17/2025 1:12 PM EST Abdominal pain, unspecified abdominal location Elevated LFTs KEXVHLKLkyayfi41/17/2025 1:12 PM EST Abdominal pain, unspecified abdominal location Elevated LFTs HEPATIC FUNCTION QMMYCElzcxsm62/17/2025 1:12 PM EST Abdominal pain, unspecified abdominal location Elevated LFTs AUTOIMMUNE LIVER DISEASE PROFILE (RDL)Yhjvvsl3403/06/2025 3:16 PM EST HCV NEG INTERP CUMSZTKccblrx22/09/2025 3:16 PM EST HEPATITIS PANEL, WATYPCnifbko28/09/2025 3:16 PM EST VSUZZIEdumfnj64/09/2025 3:16 PM EST CKOVCXRRngwjgt83/09/2025 3:16 PM EST HEPATIC FUNCTION WOWCTCirgozp52/09/2025 3:16 PM EST documented in this encounter Results * AUTOIMMUNE LIVER DISEASE PROFILE (RDL) (03/14/2025 1:12 PM EST) Narrative Authorizing ProviderResult TypeResult StatusOmer Velazquez NCLAB BLOOD ORDERABLES Final ResultPerforming OrganizationAddressCity/State/ZIP CodePhone Number [facility] * Hepatitis panel, acute (03/14/2025 1:12 PM EST)Specimen (Source)Anatomical Location / LateralityCollection Method / VolumeCollection TimeReceived Time BloodVenous blood specimen / Unknown Narrative Authorizing ProviderResult TypeResult StatusOmer Velazquez NCLAB BLOOD ORDERABLES Final ResultPerforming OrganizationAddressCity/State/ZIP CodePhone Number [facility] * Hepatic function panel (03/14/2025 1:12 PM EST)Specimen (Source)Anatomical Location / LateralityCollection Method / VolumeCollection TimeReceived Time BloodVenous blood specimen / Unknown Narrative Authorizing ProviderResult TypeResult StatusOmer Velazquez NCLAB BLOOD ORDERABLES Final ResultPerforming OrganizationAddressCity/State/ZIP CodePhone Number [facility] * Lipase (03/14/2025 1:12 PM EST)Specimen (Source)Anatomical Location / LateralityCollection Method / VolumeCollection TimeReceived TimeBloodVenous blood specimen / Unknown Narrative Authorizing ProviderCibola General Hospitalult TypeResult StatusOmer Velazquez NCLAB BLOOD ORDERABLES Final ResultPerforming OrganizationAddressCity/State/ZIP CodePhone Number [facility] * Amylase (03/14/2025 1:12 PM EST)Specimen (Source)Anatomical Location / LateralityCollection Method / VolumeCollection TimeReceived TimeBloodVenous blood specimen / Unknown Narrative Authorizing ProviderResult TypeResult Tru PEÑA BLOOD ORDERABLES Final ResultPerforming OrganizationAddressCity/State/ZIP CodePhone Number [facility] * Lipase (03/06/2025 3:16 PM EST)ComponentValueRef RangeTest MethodAnalysis Time Performed AtPathologist GdpnlibqxZUUDUV6548 - 72 U/[facility]PSpecimen (Source) Anatomical Location / LateralityCollection Method / VolumeCollection Time Received Time03/06/2025 3:16 PM EST03/06/2025 Narrative [facility] - 03/16/2025 6:07 AM EST Performed at: [address] [place] [address] ??[id number] Proofer: Grover Mckenna PhD, Phone: ??[phone] Authorizing ProviderResult TypeResult Tru PEÑA BLOOD ORDERABLES Final ResultPerforming OrganizationAddressCity/State/ZIP CodePhone Number [facility] * Amylase (03/06/2025 3:16 PM EST)ComponentValueRef RangeTest MethodAnalysis TimePerformed AtPathologist QorgqtbwzJTYNGST0950 - 110 U/[facility]PSpecimen (Source)Anatomical Location / LateralityCollection Method / VolumeCollection TimeReceived Time03/06/2025 3:16 PM EST03/06/2025 Narrative [facility] - 03/16/2025 6:07 AM EST Performed at: [address] [place] [address] ??[id number] Proofer: Grover Mckenna PhD, Phone: ??[phone] Authorizing ProviderResult TypeResult Tru Velazquez MDLAB BLOOD ORDERABLES Final ResultPerforming OrganizationAddressCity/State/ZIP CodePhone Number [facility] * HCV Neg Interp Reflex (03/06/2025 3:16 PM EST)ComponentValueRef RangeTest MethodAnalysis TimePerformed AtPathologist SignatureHCV Neg InterpComment [facility]PComment: Not infected with HCV unless early or acute infection is suspected (which may be delayed in an immunocompromised individual), or other evidence exists to indicate HCV infection. Specimen (Source)Anatomical Location / LateralityCollection Method / Volume Collection TimeReceived Time03/06/2025 3:16 PM EST03/06/2025 Narrative [facility] - 03/16/2025 6:07 AM EST Performed at: [address] [place] [address] ??[id number] Proofer: Grover Mckenna PhD, Phone: ??[phone] Authorizing ProviderResult TypeResult Tru Velazquez [facility] BLOOD ORDERABLES Final ResultPerforming OrganizationAddressCity/State/ZIP CodePhone Number [facility] * Hepatitis panel, acute (03/06/2025 3:16 PM EST)ComponentValueRef RangeTest MethodAnalysis TimePerformed AtPathologist SignatureHep A IgM AbNegative NegativeLABCORPComment: A negative anti-HAV IgM result suggests no recent or current HAV infection. Hep B Surf Ag ScrNegativeNegativeLABCORPHep B Core IgM AbNegativeNegativeLABC[facility]P HCV AbNon ReactiveNon ReactiveLABCORPSpecimen (Source)Anatomical Location / LateralityCollection Method / VolumeCollection TimeReceived Time03/06/2025 3:16 PM EST03/06/2025 Narrative [facility] - 03/16/2025 6:07 AM EST Performed at: [address] [place] [address] ??[id number] Proofer: Grover Mckenna PhD, Phone: ??[phone] Authorizing ProviderResult TypeResult Tru Velazquez [facility] BLOOD ORDERABLES Final ResultPerforming OrganizationAddTemple University Hospitalty/[facility] CodePhone Number [facility] * (ABNORMAL) Hepatic function panel (03/06/2025 3:16 PM EST)ComponentValueRef RangeTest MethodAnalysis TimePerformed AtPathologist SignatureProtein Total7.1 6.0 - 8.5 g/dLLABCORPAlbumin4.84.0 - 5.0 g/dLLABCORPBili Total0.30.0 - 1.2 mg/dLLABCORPBilirubin, Direct0.180.00 - 0.40 mg/dLLABCORPAlk Dwphttkqgrw003(H) 41 - 116 IU/EIZRZBUHDUB767 - 40 IU/[facility]PComment:Verified by repeat analysisKYJ646(H)0 - 32 IU/[facility]PComment:Verified by repeat analysis Specimen (Source)Anatomical Location / LateralityCollection Method / Volume Collection TimeReceived Time03/06/2025 3:16 PM EST03/06/2025 Narrative [facility] - 03/16/2025 6:07 AM EST Performed at: 02 - [facility] ??[id number] Proofer: Grover Mckenna PhD, Phone: ??[phone] Authorizing ProviderResult TypeResult StatusRobert Gema Velazquez [facility] BLOOD ORDERABLES Final ResultPerforming OrganizationAddressCity/State/[facility] CodePhone Number [facility] * (ABNORMAL) AUTOIMMUNE LIVER DISEASE PROFILE (RDL) (03/06/2025 3:16 PM EST) ComponentValueRef RangeTest MethodAnalysis TimePerformed AtPathologist SignatureAnti-Nuclear Ab by IFA (RDL)NegativeNegativeLABCORPANCA by IFA (RDL) NegativeNegativeLABCORPAnti-Chromatin Ab, IgG (RDL)<20<20 UnitsLABCORPAnti- Liver/Kidney Ab (RDL)<20<20 UnitsLABCORPComment: Negative: <20 ? Equivocal: ?20 - 25 Positive: >25 Anti-Mitochondrial M2 Ab (RDL)<20<20 UnitsLABCORPComment: Negative: <20 ? Equivocal: ?20 - 25 Positive: >25 Anti-Soluble Liver Ag Ab (RDL)<9.00.0 - 20.0 UnitsLABCORPComment: ? Negative: ? 0.0 - 20.0 ? Equivocal: ? 20.1 - 24.9 Positive: >24.9 Anti-Smooth Muscle Ab by IFA1:20(H)<1:20[facility]ABCORPAnti-Mitochon Ab IFA<1:20<1:20 [facility]PComment: ?Interpretation for Anti-Chromatin: Negative: <20 ? Moderate Positive: ?20 - 60 Strong Positive: >60 Specimen (Source)Anatomical Location / LateralityCollection Method / Volume Collection TimeReceived Time03/06/2025 3:16 PM EST03/06/2025 Narrative [facility] - 03/16/2025 6:07 AM EST Test(s) 914756-Lgrc-Qejsm/Kidney Ab (RDL); 570077- Anti-Mitochondrial Ab by IFA was developed and its performance characteristics determined by [facility]. It has not been cleared or approved by the Food and Drug Administration. Performed at: ??01 - [facility] [address] [place] [address] ??[id number] Proofer: Paula Pollock MD, Phone: ??[phone] Authorizing ProviderResult TypeResult StatusRobert Gema Velazquez MDLAB BLOOD ORDERABLES Final ResultPerforming OrganizationAddressCity/State/ZIP CodePhone Number [facility] documented in this encounter Visit Diagnoses Diagnosis Abdominal pain, unspecified abdominal location- Primary Elevated LFTs Other abnormal blood chemistry Dry skin Other symptoms involving skin and integumentary tissues Frequent nocturnal awakening Suspected sleep apnea Constipation, unspecified constipation type Other fatigue documented in this encounter Additional Health Concerns Active ProblemsNoted DateDiagnosed DateOB Gznolnzej13/02/2025 documented as of this encounter Care Teams Team MemberRelationshipSpecialtyStart DateEnd Date Omer Velazquez MD [address] [place] [address] PCP - GeneralInternal Medicine10/05/22documented as of this encounter
[2025-03-20] VITALS (21 sets, daily range): BP systolic 135–143; BP diastolic 82–115; PULSE 59–124; TEMP 36.5; O2SAT 95–98; BMI 37.1
--- NOTE | 2025-03-20 08:45 | ECG_ITS ---
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 Measurements Intervals [place] Rate: 66 P: 47 GA: 144 QRS: 90 QRSD: 90 T: 43 QT: 370 QTc: 383 Interpretive Statements 1100 Sinus rhythm 1102 Sinus arrhythmia 4068 Nonspecific Twave abnormality 9130 borderline ECG Compared to ECG 03/02/2025 05:04:39 No significant changes Electronically Signed On 03-21-2025 11:34:01 EST by LEXY ESQUEDA M.D.
--- NOTE | 2025-03-20 08:45 | XR_ITS ---
The [address] [address] Patient Name: LITO ROJAS MRN: [id number] date: 1995 Sex: F Assigned Patient Location: ER Current Patient Location: ED.MAIN Accession/Order Number: [id number] Exam Date: 03/20/2025 09:00 Report Date: 03/20/2025 09:21 At the request of: JOHN TRAYLOR MD Procedure: XR chest 2V PA AND LATERAL CHEST: CLINICAL HISTORY: Chest and back pain today COMPARISON: CT 03/02/2025 There is no focal parenchymal consolidation, effusion or pneumothorax. The cardiac, hilar and mediastinal silhouettes are within normal limits. There is no vascular congestion. The visualized bony thorax is intact. XR/XR chest 2V IMPRESSION: NO ACUTE CARDIOPULMONARY ABNORMALITY. Impression dictated by: Paula Gage M.D. 03/20/2025 9:21 AM Dictation Location: [place] [address] Electronically authenticated by: [id number] Y Date: 03/20/2025 09:21
--- OUTSIDE RECORDS SUMMARY | 2025-03-20 09:00 | XMS_ITS | Clinical Summary ---
Author Organization [facility] Address [address] [place] [address] Phone Care Team Providers Care Nurse Practical Name Role Phone Omer Velazquez MD Primary Care Provider [phone] Allergies No known active allergies Medications MedicationSigDispense [...] InformationValueDate RecordedSex Assigned at BirthNot on fileLegal IzcWtahbd12/18/2024 1:32 PM ESTGender IdentityNot on fileSexual OrientationNot on file Last Filed Vital Signs Vital SignReadingTime TakenCommentsBlood Xlxrpycf067/9003/08/2024 10:25 AM EST Pulse--Ovugymtdwcb38.3 ??C (97.4 ??F)03/08/2024 10:25 AM ESTRespiratory Rate-- Oxygen Saturation--Inhaled Oxygen Concentration--Kqlkco913 kg (226 lb)03/08/2024 10:25 AM RDAVnpoal886 cm (5' 3 )03/08/2024 10:25 AM ESTBody Mass Index40.03 03/08/2024 10:25 AM EST Plan of Treatment Health MaintenanceDue DateLast DoneCommentsHIV Kzvfucktc50/06/1996Lipid Panel 1995COVID-19 Vaccine (#1)1995Hepatitis C Petpleqel64/06/2014 Hepatitis A Vaccines (1 of 2 - Risk 2-dose series)2014Cervical Cancer Tewzicunu82/06/2017HPV/Pbmcpg8804/03/2016Pap Smear2016Influenza Vaccine (#1) , 02/13/2009Yearly Adult Bteoklcx08/20/26571204/16/2023, 07/13/2023, 3DTaP/Tdap/Td Vaccines (7 - Td or Tdap)06/26/2032 06/26/2022, 08/10/2000, 08/04/1996, Additional history existsZoster Vaccines (1 of 2)6008/04/1996Hepatitis B BejbjilbIyienaxtx52/20/1996, 1995, 1995HIB RyzppviqHbgchiedm12/09/1997, 03/17/1996, 1995, Additional history existsIPV FwtitffmVkhuspzkh23/15/2001, 03/17/1996, 1995, Additional history existsMeningococcal VaccineAged Out08/12/2006No longer eligible based on patient's age to complete this topicHPV VaccinesCompleted 08/12/2015, 04/10/2015, 12/05/2014MMR ShfgfaajZpxavrrpd26/06/2024, 08/10/2000, 04/21/1996Pneumococcal Vaccine: Pediatrics and At-Risk Adult PatientsAged OutNo longer eligible based on patient's age to complete this topicRotavirus Vaccines Aged OutNo longer eligible based on patient's age to complete this topic Insurance MemberSubscriberPlan / Payer (Effective 2024-Present)Name:Lissa Rivas Relation to Subscriber:SpouseName:Brenton Rivas Payer ID:Not on file Type:Not on file Address: [address] [place] [phone] Care Teams Team MemberRelationshipSpecialtyStart DateEnd Omer Velazquez MD [address] [place] [address] PCP - GeneralInternal Ejlnmgcf18/18/24
--- OUTSIDE RECORDS SUMMARY | 2025-03-20 09:00 | XMS_ITS | Clinical Summary ---
Author Organization [facility] Address [address] [place] [address] Care Team Providers Care Sewing Teacher Name Role Phone Rupal Robles Marquis DO Unavailable [phone] Josefina Harris RN Unavailable [phone] Allergies No known active allergies Medications MedicationSigDispense QuantityRefillsLast FilledStart DateEnd DateStatus PNV no.95/ferrous fum/folic ac ( ORAL) Take 1 tablet by mouth once daily.Active Active Problems ProblemNoted DateDiagnosed DateObesity, Class III, BMI 40-49.9 (morbid obesity) 08/17/2023Monoallelic mutation of SDHA gene08/17/2023Fertility mbfacoo2807/29/2023 Seasonal jewphppwy82/olycystic ibosvtf82 Obesity due to excess furrtups02/05/20224241Hudjljocyti08/10/2023 12/29/2022enital herpes tsvnxym49eneralized anxiety disorder hronic fatigue vdpdbthu20 Resolved Problems ProblemNoted DateDiagnosed DateResolved DateGERD (gastroesophageal reflux disease)/ Family History Medical HistoryRelationCommentsArrhythmiaFatherAtrial fibrillationAsthmaFather COPDFatherDiabetesFatherHeart diseaseFatherHyperlipidemiaFatherHypertension FatherKidney DiseaseFatherStrokeFatherArrhythmiaHalf-sisterAtrial fibrillation Breast CancerMaternal AuntBreast CancerMaternal GrandmotherProstate Cancer Maternal Uncle 1metastaticLung CancerMaternal Uncle 2Breast CancerMaternal great-grandmotherHypertensionMotherArrhythmiaPaternal GrandmotherAtrial fibrillationArthritisPaternal GrandmotherCOPDPaternal GrandmotherDiabetes Paternal GrandmotherHeart diseasePaternal GrandmotherStrokePaternal Grandmother WuwirkmyQiwyodFoxthfgfIwrbcgIbwriRauo-hucxghoHgwqpVcur-vpkmjkLmisbTwdevkmf Aunt AliveMaternal GrandmotherAliveMaternal Uncle 1Maternal Uncle 2AliveMaternal great-grandmotherDeceasedMotherAlivePaternal GrandfatherDeceasedPaternal GrandmotherDeceased Social History Tobacco UseTypesPacks/DayYears UsedDateSmoking Tobacco: NeverSmokeless Tobacco: Never Tobacco Cessation:Counseling Given: No Alcohol UseStandard Drinks/WeekCommentsYes0 (1 standard drink = 0.6 oz pure alcohol)rare, sociallyArea Deprivation IndexAnswerDate RecordedNational Score (1-100), lower number is lower hbjs640512/21/2023State Score (1-10), lower number is lower rsul1174Data from: https://www.neighborhoodatlas.[facility].edu/. Last address used for [address]CommentsUnknownSex and Gender InformationValueDate RecordedSex Assigned at TooztJrmivx35/09/2023 6:38 PM EDT Legal AkcNlqtbn42/18/2023 10:39 AM EDTGender LxourxldZancmk45/09/2023 6:38 PM EDTSexual OrientationNot on file Last Filed Vital Signs Vital SignReadingTime TakenCommentsBlood Besbekil218/7905 10:02 AM EDT Aztyt924708/17/2023 10:02 AM EDTTemperature--Respiratory Rate--Oxygen Saturation-- Inhaled Oxygen Concentration--Kibvno598.1 kg (229 lb 8 oz)08/17/2023 10:02 AM AHTEugikr744 cm (5' 3 )01/04/2023 8:44 AM EDTBody Mass Index40.6501/04/2023 8:44 AM EDT Plan of Treatment Health MaintenanceDue DateLast DoneCommentsDepression Snrszeirf69/06/2014 Cervical Cancer Xeudxcekh51/06/2017Covid-19 Vaccine ( season) 2024Influenza Vaccine (#1)511/06/2014, 02/13/2009DTaP,Tdap,Td Vaccine (7 - Td or Tdap)/, 08/10/2000, 08/04/1996, Additional history existsHepatitis B EpliufeGhmqjnnhb75/20/1996, 1995, 1995HPV PewrkvgVrbyedmjg82/16/2016, 04/10/2015, 12/05/2014HIV ScreeningCompleted 09/13/2023Hepatitis C LultviwnfHdrekxphv91/17/2024 Procedures Procedure NamePriorityDate/TimeAssociated DiagnosisCommentsHIV 1/2 COMBO WITH REFLEX TO WWMYXBNBYRDFHFNAxgklia73/17/2024 8:52 AM EDT Screen for sexually transmitted diseases HEPATITIS C ANTIBODY IA WITH UVZKLTYKYQNHJjlvmme57/17/2024 8:52 AM EDT Screen for sexually transmitted diseases from Last 3 Months or Most Recently Relevant to Health Maintenance Results * HIV 1/2 COMBO WITH REFLEX TO DIFFERENTIATION (09/13/2023 8:52 AM EDT)Component ValueRef RangeTest MethodAnalysis TimePerformed AtPathologist SignatureHIV 12 Combo (Ag/Ab)FkwzhsodxeiHetvwlbyhim98/17/2024 9:15 PM EDTCPREMIER [facility] LABHIV-1/2 AB (Confirmatory)09/13/2023 9:15 PM EDTCPREMIER [facility]ALTH [facility]PPER VALLEY [facility] LABComment:Test not indicated.HIV Igpoqtrgcdsyid03/17/2024 9:15 PM EDT [facility]Comment: No evidence of HIV-1 or HIV-2 infection. Should recent infection be suspected, repeat testing may be considered 2-3 weeks after this draw. [place] Rev. Code 3701.243(E): This information has been [...] EDT Narrative Authorizing ProviderResult TypeResult StatusLauren Mindzora SUPERVISOR MAINTENANCE AND CUSTODIANS.CNPLABORATORY Final ResultPerforming OrganizationAddressCity/State/ZIP CodePhone Number [facility] [address] * HEPATITIS C ANTIBODY IA WITH CONFIRMATION (09/13/2023 8:52 AM EDT)Component ValueRef RangeTest MethodAnalysis TimePerformed AtPathologist SignatureHep C Antibody YDRygyhnapLmidabtp28/17/2024 9:06 PM EDTCPREMIER [facility]ALTH [facility]PP[facility] LABComment:The result suggests no evidence of active infection with Hepatitis C virus. Should recent infectionbe suspected, repeat testing may be considered 4-6 weeks after this draw.Specimen (Source)Anatomical Location / Laterality Collection Method / VolumeCollection TimeReceived TimeBloodBLOOD SPECIMEN / UnknownVenipuncture / Mvxsaav0609/13/2023 8:52 AM EDT09/13/2023 8:52 AM EDT Narrative Authorizing ProviderResult TypeResult StatusLauren Mindzora SUPERVISOR MAINTENANCE AND CUSTODIANS.CNPLABORATORY Final ResultPerforming OrganizationAddressCity/State/ZIP CodePhone Number [facility] [address] from Last 3 Months or Most Recently Relevant to Health Maintenance Insurance [address] [place] [address] Care Teams Team MemberRelationshipSpecialtyStart DateEnd Date Robles Goldsmith DO [address] [facility] [address] [place] [address] ReferringObstetrics10/13/22 [place] [address] [place] [address] Specialty Care Coordinator04/12/24
--- OUTSIDE RECORDS SUMMARY | 2025-03-20 09:00 | XMS_ITS | Clinical Summary ---
Author Organization [employer] [facility] Address [id number] [address] [place] [address] Care Team Providers Care Blade Sharpener Name Role Phone Unavailable Primary Care Provider Unavailabl e Allergies No known active allergies Medications MedicationSigDispense QuantityRefillsLast FilledStart DateEnd DateStatus si572-vkgz-dqjdr acid ( 19) 29 mg iron- 1 [...] 30 tablet 5Active Active Problems ProblemNoted DateDiagnosed PkxxUiudkdqfzfif65/04/2025Non-sustained ventricular pkqadlilpua78/28/2025Pre-eclampsia in third lcjykrzlj16/28/2025Gestational diabetes requiring ujevaus1610/23/2024Insulin controlled gestational diabetes mellitus (GDM) in third dzotjbisv46/17/2025bnormal liver tciegyo8009/12/2024 Elevated blood pressure affecting , exgjginphd97/17/2025 Immunizations ImmunizationAdministration DatesNext DueRho (D) Immune Ueyvapzy29/05/2025 Family History Medical HistoryRelationNameCommentsAsthmaFatherAtrial fibrillationFatherCOPD FatherDiabetesFatherHeart diseaseFatherHyperlipidemiaFatherHypertensionFather [...] RecordedSex Assigned at BirthNot on fileLegal Sex Dalnta2008/29/2024 1:21 PM EDTGender IdentityNot on fileSexual OrientationNot on file Last Filed Vital Signs Vital SignReadingTime TakenCommentsBlood Iaaximgs981/7708 10:30 AM EDT Cdbzb806011/03/2024 10:30 AM HDVEygojbbgcyc35.9 ??C (98.4 ??F)11/03/2024 8:34 AM EDTRespiratory Gtoh3290/10/2024 8:34 AM EDTOxygen Rykbsyjswd023%10/31/2024 11:00 PM EDTInhaled Oxygen Concentration--Xppypt669.7 kg (222 lb)11/03/2024 8:46 AM ONNQijciu003 cm (5' 3 )11/03/2024 8:46 AM EDTBody Mass Index39.33011/03/2024 8:46 AM EDT Plan of Treatment Health MaintenanceDue DateLast DoneCommentsDepression Zwhulznib26/06/2008dult BMI Follow Up Plan2013Influenza Aujgrvi07/06/2014, 02/13/2009 Adult BMI Lqsxaxjey39Tobacco Xawtspctu49Pap SmearDTaP,Tdap and Td Vaccines (7 - Td or Tdap)06/26/2032 06/26/2022, 08/10/2000, 08/04/1996, Additional history exists Medical Devices Not on file Insurance Advance Directives * Full Code (Latest Code Status on File) Date ActivatedDate InactivatedComments10/30/2024 8:22 AM11/02/2024 6:10 PM
--- OUTSIDE RECORDS SUMMARY | 2025-03-20 09:00 | XMS_ITS | Clinical Summary ---
Author Organization [facility] Address [address] [place] [address] [place] [address] Care Team Providers Care Materials Tech Name Role Phone Omer Velazquez MD Primary Care Provider Allergies No known active allergies Medications MedicationSigDispense QuantityRefillsLast FilledStart DateEnd DateStatus MV-Min-Fe Fum-FA-DHA ( 1 PO) Take by mouthActive ibuprofen 800 MG tablet Take 800 mg by mouth every 8 (eight) hours5Active acetaminophen-codeine (Tylenol w/ Codeine #3) 300-30 MG tablet Take 1 tablet by mouth every 6 (six) hours if needed for severe painActive Active Problems ProblemNoted DateDiagnosed DateNonsustained ventricular opyrcoupeuo10/28/2025 Monoallelic mutation of SDHA gene08/24/2023 Overview (08/24/2023): Follows with [facility]. Hepatic lfumtufmy83/16/2024Vitamin D zyakesrfba73/17/2023enital herpes simplex 10/05/20227013Ycsbviqkwbj40/10/2023olycystic jwbkasi9010/05/2022Seasonal allergies 10/05/2022 Resolved Problems ProblemNoted DateDiagnosed DateResolved DateChronic fatigue /10/2023 01/12/2023 Encounters DateTypeDepartmentCare GwzfJmcmdecehpo73/16/2025Telephone [facility] [address] [place] [address] Torrie Bartholomew NP 03/06/2025 2:00 PM ESTOffice Visit [facility] [address] [place] [phone] Omer Velazquez MD Abdominal pain, unspecified abdominal location (Primary Dx); Elevated LFTs; Dry skin; Frequent nocturnal awakening; Suspected sleep apnea; Constipation, unspecified constipation type; Other umdhvds3503/06/20258815Imkgbu53/05/2025Orders Only [facility] [address] [place] [address] Unallocated, Heena Cheatham MD from Last 3 Months Immunizations ImmunizationAdministration DatesNext BizTGC1207/31/1995,1995DTaP, Ynyutckstep53/15/2001,08/04/1996,03/17/1996HPV 9-Wcijxw4108/12/2015,04/10/2015, 12/05/2014Hep B, Adolescent or Xqfoldtgv06/20/1996,1995,1995HiB, gtybhmarnzk90/09/1997,03/17/1996,1995,1995IPV08/10/2000Influenza, seasonal, injectable, preservative free01/30/2015MMR05/04/2023,08/10/2000, 04/21/1996Meningococcal YWL0J6508/12/2006Novel qmsuwlmkr-D4L6-97, preservative-free02/13/2009OPV105/18/1995,1995,1995Tdap06/26/2022 Jqizqejfs00/09/1997 Family History Medical HistoryRelationNameCommentsAsthmaFatherEricAtrial fibrillationFatherEric COPDFatherEricDiabetesFatherEricHeart diseaseFatherEricHyperlipidemiaFatherEric [...] drinks on one occasion?Never02/15/2024HQ-2AnswerDate RecordedPatient Health Questionnaire-2 Mmruw910CommentsUnknownSex and Gender InformationValueDate RecordedSex Assigned at BirthNot on fileLegal SexFemale 06/10/2022 7:14 PM EDTGender IdentityNot on fileSexual OrientationNot on file 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 Start 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 End 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, 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 on fileNot on fileNot on file Last Filed Vital Signs Vital SignReadingTime TakenCommentsBlood Kxzwbquk518/7003/06/2025 2:02 PM EST Banzq247803/06/2025 2:02 PM ESTTemperature--Respiratory Rate--Oxygen Fxgfkvtpmm27% 03/06/2025 2:02 PM ESTInhaled Oxygen Concentration--Sdwjoz43 kg (205 lb) 03/06/2025 2:02 PM JIXHvbati873 cm (5' 3 )03/06/2025 2:02 PM ESTBody Mass Index 36.31105/07/2024 2:02 PM EST Plan of Treatment DateTypeDepartmentCare Team (Latest Contact Info)Qcgrbmavpqy47/04/2026 11:00 AM ESTProcedure Visit [facility] [address] [place] [address] [place] [address] Saravanan Ahumada, DO [address] [place] [address] 07/24/2025 9:15 AM EDTOffice Visit [facility] [address] [place] [address] Health MaintenanceDue DateLast DoneCommentsInfluenza Vaccine (#1)11/27/2024 01/30/2015Pneumococcal Vaccine: Pediatrics (0 to 5 Years) and At-Risk Patients (6 to 64 Years)Aged OutNo longer eligible based on patient's age to complete this topic Goals GoalPatient Goal TypeAssociated ProblemsRecent ProgressPatient-Stated?Author Reminders Care PlanOB RemindersNoOpen Scheduling, Background Procedures Procedure NamePriorityDate/TimeAssociated DiagnosisCommentsAUTOIMMUNE LIVER DISEASE PROFILE (RDL)Ljgffpr5603/14/2025 1:12 PM EST Abdominal pain, unspecified abdominal location Elevated LFTs HEPATITIS PANEL, HRYRGAwrhmto58/17/2025 1:12 PM EST Abdominal pain, unspecified abdominal location Elevated LFTs HEPATIC FUNCTION TVAAEDhtvmdv24/17/2025 1:12 PM EST Abdominal pain, unspecified abdominal location Elevated LFTs VXCZXEIxuxllo15/17/2025 1:12 PM EST Abdominal pain, unspecified abdominal location Elevated LFTs HIIWORUPbypvtu52/17/2025 1:12 PM EST Abdominal pain, unspecified abdominal location Elevated LFTs DAUDIUMmfjvep47/09/2025 3:16 PM EST LWSTSWYOoptiqx40/09/2025 3:16 PM EST HCV NEG INTERP XAIUDCTzhtbvm68/09/2025 3:16 PM EST HEPATITIS PANEL, JMGAHAvmsgca48/09/2025 3:16 PM EST HEPATIC FUNCTION KOLIPNwcmidd60/09/2025 3:16 PM EST AUTOIMMUNE LIVER DISEASE PROFILE (RDL)Vqenhdd1703/06/2025 3:[address] CHEST ANGIO W AND WO IV PJLYCRALFdaopke01/05/2025 7:46 AM ESTCT ABDOMEN PELVIS W AND WO IV TTFCGCQDBsisclm38/05/2025 7:44 AM ESTfrom Last 3 Months Results * AUTOIMMUNE LIVER DISEASE PROFILE (RDL) (03/14/2025 1:12 PM EST) Only the most recent of2 resultswithin the time period is included. Narrative Authorizing ProviderResult TypeResult StatusOmer Velazquez FLLAB BLOOD ORDERABLES Final ResultPerforming OrganizationAddressCity/State/ZIP CodePhone Number [facility] * Hepatitis panel, acute (03/14/2025 1:12 PM EST) Only the most recent of2 resultswithin the time period is included. Specimen (Source)Anatomical Location / LateralityCollection Method / Volume Collection TimeReceived TimeBloodVenous blood specimen / Unknown Narrative Authorizing ProviderNor-Lea General Hospitalult TypeResult [facility] CenterOmer Velazquez FLLAB BLOOD ORDERABLES Final ResultPerforming OrganizationAddressCity/State/ZIP CodePhone Number [facility] * Lipase (03/14/2025 1:12 PM EST) Only the most recent of2 resultswithin the time period is included. Specimen (Source)Anatomical Location / LateralityCollection Method / Volume Collection TimeReceived TimeBloodVenous blood specimen / Unknown Narrative Authorizing ProviderResult TypeResult StatusOmer Velazquez FLLAB BLOOD ORDERABLES Final ResultPerforming OrganizationAddressCity/State/ZIP CodePhone Number [facility] * Amylase (03/14/2025 1:12 PM EST) Only the most recent of2 resultswithin the time period is included. Specimen (Source)Anatomical Location / LateralityCollection Method / Volume Collection TimeReceived TimeBloodVenous blood specimen / Unknown Narrative Authorizing ProviderE[facility] TypeResult StatusOmer Velazquez FLLAB BLOOD ORDERABLES Final ResultPerforming OrganizationAddressCity/State/ZIP CodePhone Number [facility] * Hepatic function panel (03/14/2025 1:12 PM EST) Only the most recent of2 resultswithin the time period is included. Specimen (Source)Anatomical Location / LateralityCollection Method / Volume Collection TimeReceived TimeBloodVenous blood specimen / Unknown Narrative Authorizing ProviderResult TypeResult StatusOmer Velazquez FLLAB BLOOD ORDERABLES Final ResultPerforming OrganizationAddressCity/State/ZIP CodePhone Number [...] 03/16/2025 6:07 AM EST Performed at: [address] ??[id number] Construction Plumber: Grover Mckenna PhD, Phone: ??[phone] Authorizing ProviderResult TypeResult StatusOmer Velazquez FLLAB BLOOD ORDERABLES Final ResultPerforming OrganizationAddressCity/State/ZIP CodePhone Number [facility] * CT chest angio w and wo IV contrast (03/02/2025 7:46 AM EST)Anatomical Region LateralityModalityBodyComputed Tomography Narrative Authorizing ProviderResult TypeResult StatusNoms Provider Unallocated MDIMG CT PROCEDURESFinal Result * CT abdomen pelvis w and wo IV contrast (03/02/2025 7:44 AM EST)Anatomical RegionLateralityModalityBody, Pelvis, AbdomenComputed Tomography Narrative Authorizing ProviderResult TypeResult StatusNoms Provider Unallocated MDIMG CT PROCEDURESFinal Result from Last 3 Months Additional Health Concerns Active ProblemsNoted DateDiagnosed DateOB Ihwblsjyl76/02/2025 Insurance Care Teams Team MemberRelationshipSpecialtyStart DateEnd Omer Velazquez MD [address] [facility] [address] [place] [address] PCP - GeneralInternal Medicine10/05/22
--- OUTSIDE RECORDS SUMMARY | 2025-03-20 09:00 | XMS_ITS | Encounter Summary ---
Author Organization [facility] Address [address] [place] [address] Care Team Providers Care Php Mysql Web Developer Name Role Phone Omer Velazquez MD Primary Care Provider [phone] Encounter Details DateTypeDepartmentCare Team (Latest Contact Info)Sbzjmjjdazo12/09/2025Travel Social History Tobacco UseTypesPacks/DayYears UsedDateSmoking Tobacco: NeverSmokeless [...] drinks on one occasion?Never02/15/2024HQ-2AnswerDate RecordedPatient Health Questionnaire-2 Sizuy399CommentsUnknownSex and Gender InformationValueDate RecordedSex Assigned at BirthNot on fileLegal SexFemale 06/10/2022 7:14 PM EDTGender IdentityNot on fileSexual OrientationNot on file 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 Start DateJob End 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, 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 on fileNot on fileNot on filedocumented as of this encounter Plan of Treatment DateTypeDepartmentCare Team (Latest Contact Info)Mzmoyyuagjf88/04/2026 11:00 AM ESTProcedure Visit [facility]EENA LAFLE[facility] [address] [place] [address] [place] [address] Saravanan Ahumada, DO [address] [facility] [address] [place] [address] 07/24/2025 9:15 AM EDTOffice Visit [facility] [address] [facility] [address] [place] [address] documented as of this encounter Goals GoalPatient Goal TypeAssociated ProblemsRecent ProgressPatient-Stated?Author Reminders Care PlanOB RemindersNoOpen Scheduling, Backgrounddocumented as of this encounter Visit Diagnoses Not on filedocumented in this encounter Additional Health Concerns Active ProblemsNoted DateDiagnosed DateOB Dzcflsomy41/02/2025 documented as of this encounter Care Teams Team MemberRelationshipSpecialtyStart DateEnd Date Omer Velazquez MD [address] [facility] [address] [place] [address] PCP - GeneralInternal Medicine10/05/22documented as of this encounter
--- OUTSIDE RECORDS SUMMARY | 2025-03-20 09:00 | XMS_ITS | Encounter Summary ---
Author Organization [facility] Address [address] [place] [address] Care Team Providers Care Rn Lpn Cna Name Role Phone Omer Velazquez MD Primary Care Provider [phone] Encounter Details DateTypeDepartmentCare Team (Latest Contact Info)Ounqpkhmmek32/16/2025Telephone [facility] [address] [facility] [address] [place] [phone] Trorie Bartholomew NP [address] [facility] [address] [place] [address] Social History Tobacco UseTypesPacks/DayYears UsedDateSmoking Tobacco: NeverSmokeless [...] drinks on one occasion?Never02/15/2024HQ-2AnswerDate RecordedPatient Health Questionnaire-2 Orzja991CommentsUnknownSex and Gender InformationValueDate RecordedSex Assigned at BirthNot on fileLegal SexFemale 06/10/2022 7:14 PM EDTGender IdentityNot on fileSexual OrientationNot on file 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 Start DateJob End 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 I called [facility] and they said they are waiting for the results of the autoimmune panel which can take 10-12 days to results. They are sending the other results now. * Telephone Encounter - Jarrod Royal MA - 03/14/2025 8:45 AM EST Left vm with the below information. Requesting a callback. * Telephone Encounter - Torrie Bartholomew NP - 03/13/2025 5:29 PM EST Please call patient if she is getting labs done this week. documented in this encounter Plan of Treatment DateTypeDepartmentCare Team (Latest Contact Info)Vwfuzoyuxnf97/04/2026 11:00 AM ESTProcedure Visit [facility] [place] [address] [facility] [place] [address] Saravanan Ahumada, [address] [facility] [place] [address] 07/24/2025 9:15 AM EDTOffice Visit [facility] [address] [place] [address] documented as of this encounter Goals GoalPatient Goal TypeAssociated ProblemsRecent ProgressPatient-Stated?Author Reminders Care PlanOB RemindersNoOpen Scheduling, Backgrounddocumented as of this encounter Visit Diagnoses Not on filedocumented in this encounter Additional Health Concerns Active ProblemsNoted DateDiagnosed DateOB Aenpddtih04/02/2025 documented as of this encounter Care Teams Team MemberRelationshipSpecialtyStart DateEnd Date Omer Velazquez MD [address] [place] [address] PCP - GeneralInternal Medicine10/05/22documented as of this encounter
[2025-03-20 09:02] LABS: Hematocrit 37.6 % (36.0-48.0); Hemoglobin 12.8 g/dL (12.0-16.0); Immature Granulocytes Abs Auto 0.02 10^3/uL (0.00-0.03); Immature Granulocytes Pct Auto 0.2 % (0.0-0.5); Lymphocytes Absolute Auto 1.8 10^3/uL (1.2-3.8); Mean Corpuscular HGB Conc 34.0 g/dL (29.9-35.2); Mean Corpuscular Hemoglobin 30.4 pg (26.7-34.0); Mean Corpuscular Volume 89.3 fL (81.0-99.0); Platelet Count 244 10^3/uL (150-450); Red Blood Count 4.21 10^6/uL (4.20-5.40); White Blood Count 8.0 10^3/uL (4.0-11.0)
[2025-03-20] MEDS: ASPIRIN 81 MG TAB.CHEW 162 MG PO (09:12)
[2025-03-20 09:21] LABS: Alanine Aminotransferase 99 U/L (14-59); Albumin Globulin Ratio 1.2; Albumin Level 3.8 g/dL (3.4-5.0); Alkaline Phosphatase 104 U/L (46-116); Anion Gap 13.8; Aspartate Amino Transferase 109 U/L (15-37); Blood Urea Nitrogen 17.0 mg/dL (7.0-18.0); Calcium 9.2 mg/dL (8.5-10.1); Carbon Dioxide 26.1 mmol/L (21.0-32.0); Chloride 107 mmol/L (98-107); Estimated GFR (African America >60 (>=60 mL/min/1.73m^2); Estimated GFR (Non-African Ame >60 (>=60 mL/min/1.73m^2); Globulin 3.3 g/dL; Glucose 101 mg/dL (74-106); Potassium 3.9 mmol/L (3.5-5.1); Sodium 143 mmol/L (136-145); Total Protein 7.1 g/dL (6.4-8.2)
[2025-03-20 09:27] LABS: NT Pro B Type Natriuretic Pept 18.0 pg/mL (<=450.0)
[2025-03-20 09:28] LABS: Lipase 42.0 U/L (16.0-77.0)
--- NOTE | 2025-03-20 10:15 | ECG_ITS ---
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 Measurements Intervals [place] Rate: 148 P: -68163 ND: -32981 QRS: 79 QRSD: 66 T: 42 QT: 358 QTc: 443 Interpretive Statements Likely sinus tachycardia [address] depression, possible subendocardial injury 0104 ELECTRODE(S) DETACHED ... Repeat ECG is requested ARTIFACT IN LEAD(S) precludes accurate interpretation 9150 abnormal ECG Compared to ECG 03/20/2025 08:36:54 ST (T wave) deviation now present Sinus rhythm no longer present Sinus arrhythmia no longer present Electronically Signed On 03-21-2025 11:51:33 EST by LEXY ESQUEDA M.D.
--- NOTE | 2025-03-20 10:50 | ED.GENADUL1 ---
HPI HPI - General Adult General Chief complaint: Chest Pain Stated complaint: BACK AND ABOMINAL PAIN Time Seen by Provider: 03/20/25 08:43 Source: patient Mode of arrival: walk-in Limitations: no limitations History of Present Illness HPI narrative: Patient is a 29-year-old female who is presenting to the ER today with chief complaint of right upper thoracic pain radiating to the right side of her chest, also midsternal chest pain and midepigastric pain. Patient said that she was sleeping and this pain woke her up this morning. Patient was just here on March 02 with similar symptoms. Patient had lab work, CT of the chest at that time that showed no acute findings. Patient did have elevated LFTs at that time. Patient did have a baby boy in October. Patient has no recent traveling. Patient does not state that she had any significant amount of fatty or greasy food or caffeine or alcohol last evening to be causing gastritis this morning. Patient says that she does not suffer much with acid reflux or heartburn. No recent traveling. No other sick contacts. Patient states that her mom had her gallbladder removed. Patient is very anxious, situational anxiety. Patient states that she does not have a history of situational anxiety, panic disorder. Mild nausea, no vomiting, no other acute complaints. Unless otherwise stated in this report or unable to obtain because of the patient's clinical or mental status as evidenced by medical record, the patient's positive and negative responses for review of systems for constitutional, eyes, ENT, cardiovascular, respiratory, gastrointestinal, neurological, , musculoskeletal, and integument systems and related systems to the presenting problem are either stated in the history of present illness or were not pertinent or were negative for the symptoms and/or complaints related to the presenting medical problem. Nurses note and vital signs reviewed and patient is not hypoxic. General: The patient appears well and in no apparent distress. Patient is resting comfortably on cart. Patient is not toxic, lethargic, or listless Skin: Warm, dry, no pallor noted. There is no rash noted. No petechiae, purpura. No rash to bilateral anterior, lateral, posterior chest wall. Head: Normocephalic, atraumatic Eye: Normal conjunctiva, no drainage, EOMI. PERRL Ears, Nose, Mouth, and Throat: oral mucosa is moist. Nares patent. Mouth without vesicles. Cardiovascular: Regular Rate and Rhythm, no murmur, gallop, rub. Patient has reproducible mild tenderness to palpation to mid sternum and xiphoid process and midepigastric area. Respiratory: Patient is in no distress, no accessory muscle use, lungs are clear to auscultation, no wheezing, rales or rhonchi Back: non-tender, no CVA tenderness bilaterally to percussion. No CT LS midline pain GI: no tenderness to palpation, no masses appreciated. No rebound, guarding, or rigidity noted. No distention Musculoskeletal: Patient has full range of motion of all of the extremities, no motor, sensory, or focal neurological deficits Neurological: A&O x4, normal speech Psychiatric: Cooperative, patient is intermittently hyperventilating, tachycardic, tearful, situationally anxious. Related Data Previous Rx's ?Medication ?Instructions ?Recorded ondansetron 4 mg disintegrating 4 mg PO Q6H PRN nausea and 03/02/25 tablet vomiting #20 tabs Allergies Allergy/AdvReac Type Severity Reaction Status Date / Time No Known Drug Allergies Allergy Verified 03/02/25 04:36 Opioid HPI Opioid Management Most Recent Opioid Data: Last Pain Scale 7 Today, 08:32 Ur Phencyclidine Scrn, (NEGATIVE) Negative 04/21/24, 16:18 PFSH PFSH Social History Little interest or pleasure in doing things: not at all Feeling down, depressed, or hopeless: not at all Exam Constitutional Vital Signs, click to edit/add: Last Vital Signs Temp 97.7 F 03/20/25 08:32 Pulse 64 03/20/25 11:01 Resp 13 03/20/25 11:01 BP 135/82 03/20/25 11:01 Pulse Ox 96 03/20/25 11:01 O2 Del Method Room Air 03/20/25 11:00 Course Vital Signs Vital signs: Vital Signs Temperature 97.7 F 03/20/25 08:32 Pulse Rate 71 03/20/25 08:32 Respiratory Rate 18 03/20/25 08:32 Blood Pressure 139/95 H 03/20/25 08:32 Pulse Oximetry 96 03/20/25 08:32 Oxygen Delivery Method Room Air 03/20/25 08:32 Temperature 97.7 F 03/20/25 08:32 Pulse Rate 64 03/20/25 11:01 Respiratory Rate 13 03/20/25 11:01 Blood Pressure 135/82 03/20/25 11:01 Pulse Oximetry 96 03/20/25 11:01 Oxygen Delivery Method Room Air 03/20/25 11:00 Medical Decision Making MDM Narrative Medical decision making narrative: Patient seen and examined: IV, labs, EKG, chest x-ray, Zofran Differential diagnosis includes but is not limited to: Pneumothorax, pneumonia, ACS, anxiety, panic, rash, biliary colic, cholecystitis Relevant laboratory interpretation: Patient has no white blood cell count, patient's AST/ALT is 109/99. Troponin negative. Patient's LFTs are significantly decreased from a few weeks ago. Radiological studies: Chest x-ray shows no acute cardiopulmonary disease, no infiltrates, no effusion. Reevaluation: EKG interpretation. Normal sinus rhythm at 66 beats a minute. Normal axis deviation. No acute ST elevation, no acute ectopy. QTc of 383. Social barriers to healthcare: There are no food insecurities, there is no issue with transportation, there are no insurance barriers. I was called into the room because patient became tachycardic. Patient's heart rate went into the 130s. Patient is having intermittent episodes of hyperventilation. Patient was educated on gastritis, biliary colic, gallbladder disease. Patient was acute indication for gallbladder ultrasound, HIDA scan; educated on heart score and the need to follow-up. Heart score 0. Patient's father had cardiac history, but no acute [place] or CVA at a early age. During HPI and physical exam and reassessment, I was able to speak patient down and help with hyperventilation and de-escalate. Kayla CORBETT was at bedside the entire time. Patient be discharged. Patient given a lot of education information on follow-up and the possibilities of differential diagnosis. Patient thankful for time spent, no questions at discharge. Lab Data Labs: Lab Results 03/20/25 Range/Units 08:49 WBC 8.0 (4.0-11.0) 10^3/uL RBC 4.21 (4.20-5.40) 10^6/uL Hgb 12.8 (12.0-16.0) g/dL Hct 37.6 (36.0-48.0) % MCV 89.3 (81.0-99.0) fL MCH 30.4 (26.7-34.0) pg MCHC 34.0 (29.9-35.2) g/dL RDW 13.9 (11.0-15.0) % Plt Count 244 (150-450) 10^3/uL MPV 10.5 (9.5-13.5) fL Neut % (Auto) 62.6 (43.0-75.0) % Lymph % (Auto) 22.7 (20.5-60.0) % [place] % (Auto) 6.7 (1.7-12.0) % Eos % (Auto) 7.1 H (0.9-7.0) % Baso % (Auto) 0.7 (0.2-2.0) % Neut # (Auto) 5.0 (1.4-6.5) 10^3/uL Lymph # (Auto) 1.8 (1.2-3.8) 10^3/uL [place] # (Auto) 0.5 (0.3-0.8) 10^3/uL Eos # (Auto) 0.6 (0.0-0.7) 10^3/uL Baso # (Auto) 0.1 (0.0-0.1) 10^3/uL Abs Immat Gran (auto) 0.02 (0.00-0.03) 10^3/uL Imm/Tot Granulo (auto) 0.2 (0.0-0.5) % Sodium 143 (136-145) mmol/L Potassium 3.9 (3.5-5.1) mmol/L Chloride 107 (98-107) mmol/L Carbon Dioxide 26.1 (21.0-32.0) mmol/L Anion Gap 13.8 BUN 17.0 (7.0-18.0) mg/dL Creatinine 0.89 (0.55-1.02) mg/dL Est GFR ( Amer) >60 (>=60 mL/min/1.73m^2) Est GFR (Non-Af Amer) >60 (>=60 mL/min/1.73m^2) BUN/Creatinine Ratio 19.1 Glucose 101 (74-106) mg/dL Calcium 9.2 (8.5-10.1) mg/dL Total Bilirubin 0.4 (0.2-1.0) mg/dL AST 109 H (15-37) U/L ALT 99 H (14-59) U/L Alkaline Phosphatase 104 (46-116) U/L Troponin I High Sens <4.0 L (4.0-51.3) pg/mL NT-Pro-B Natriuret Pep 18.0 (<=450.0) pg/mL Total Protein 7.1 (6.4-8.2) g/dL Albumin 3.8 (3.4-5.0) g/dL Globulin 3.3 g/dL Albumin/Globulin Ratio 1.2 Lipase 42.0 (16.0-77.0) U/L Discharge Plan Discharge Chief Complaint: Chest Pain Clinical Impression: Acute right-sided thoracic back pain, Chest pain, midsternal Patient Disposition: Home, Self-Care Time of Disposition Decision: 10:47 Prescriptions / Home Meds: No Action ondansetron 4 mg tablet,disintegrating 4 mg PO Q6H PRN (Reason: nausea and vomiting) Qty: 20 0RF Print Language: [place]er Instructions: Chest Pain (ED), Gastritis (ED), Cholecystitis (ED), Biliary Colic (ED), Low Fat Diet (ED), Acute Nausea and Vomiting (ED), Back Pain (ED), Chest Wall Pain (ED) Additional Instructions: A significant amount of education has been given to gastritis, chest pain, chest wall pain, gallbladder disease. I am not diagnosing you with any type of gallbladder disease today, or gastritis. We discussed this at bedside. Education has been provided. Use Pepcid daily for 1 or 2 weeks to help with acid reflux, use Maalox or Mylanta to help as rescue medication if you are having heartburn, acid reflux or midsternal pain. Follow-up with your PCP for additional outpatient studies. Possibilities include gallbladder ultrasound, HIDA SCAN which is another test for gallbladder disease if lab work or gallbladder ultrasound is not showing any acute findings and you continue to have right upper quadrant, midepigastric or back pain. Return back to the ER if any other intractable nausea, vomiting, pain, or any other acute concerns. Referrals: LITO GUERRERO [Primary Care Provider, Internal Medicine] - 1 week Discharge Date/Time: 03/20/25 11:08
== END 2025-03-20 11:08 | disposition home or self-care (01) ==
PROVIDERS: Emergency Provider Emergency Medicine; PCP Internal Medicine
DX: M54.6 Pain in thoracic spine (principal); R07.89 Other chest pain; R10.13 Epigastric pain; R11.0 Nausea
CPT/HCPCS: 36415; 71046; 80053; 83690; 83880; 84484; 85025; 93005; 99283